=== PATIENT | female | born 1975 | race Caucasian/White ===

== ENCOUNTER 2022-12-13 21:40 | Emergency (ER) | payer OTHER, SELFPAY ==
[2022-12-13 21:54] VITALS: BP 131/85; PULSE 115; RESP 23; TEMP 36.7; O2SAT 97; BMI 40.7
--- NOTE | 2022-12-13 22:30 | ED_ITS ---
HPI - Psych General Chief Complaint: Psychiatric Symptoms Stated Complaint: SI/DIABETIC Time Seen by Provider: 12/13/22 22:30 Source: Reports patient Mode of arrival: ambulance History of Present Illness HPI Narrative: patient released from [address] [place] [address] after psychiatric admission 4 days ago. States today she argued with her mother and sisters. She went for a walk and became more depressed and wanted to walk in front of a car to get hit. She called [facility] and was brought to the ER. She denies taking any drugs other than prescribed. No use of street drugs. She would like to go back to [address] [place] [address] for additional treatment and then plans to go to a homeless long-term once released complaint: suicidal ideation Related Data Allergies Allergy/AdvReac Type Severity Reaction Status Date / Time fentanyl Allergy Unknown Verified 12/13/22 21:52 ketorolac [From Toradol] Allergy Unknown Verified 12/13/22 21:52 meperidine [From Demerol] Allergy Unknown Verified 12/13/22 21:52 morphine Allergy Unknown Verified 12/13/22 21:52 nalbuphine [From Nubain] Allergy Unknown Verified 12/13/22 21:52 Penicillins Allergy Unknown Verified 12/13/22 21:52 Review of Systems ROS Status of ROS 10 or more systems reviewed and unremarkable except as noted in history and below Exam Constitutional Vital Signs - 24 hr 12/13/22 21:54 Temperature 98.1 F Pulse Rate [Monitor] 115 H Respiratory Rate 23 Blood Pressure [Right Arm] 131/85 H Pulse Oximetry 97 Oxygen Delivery Method Room Air Common normals: no apparent distress, oriented x3, no limitations and healthy appearing HENNV Common normals: normocephalic and head/scalp atraumatic Eye Common normals: PERRL, EOMs intact bilaterally and conjunctivae normal Respiratory Common normals: normal respiratory effort, no retractions and no use of accessory muscles Cardio Common normals: no JVD, regular rate, regular rhythm, S1 normal heart sound and S2 normal heart sound GI Common normals: Normal to inspection, nondistended, normoactive bowel sounds present, soft to palpation and non-tender Extremity Common normals: normal to inspection, full ROM, normal capillary refill and no joint enlargement Neuro Common normals: oriented x3 and CN's II-XII intact bilaterally Psych Other: depressed Course Vital Signs Vital signs: Vital Signs Temperature 98.1 F 12/13/22 21:54 Pulse Rate 115 H 12/13/22 21:54 Respiratory Rate 23 12/13/22 21:54 Blood Pressure 131/85 H 12/13/22 21:54 Pulse Oximetry 97 12/13/22 21:54 Oxygen Delivery Method Room Air 12/13/22 21:54 Temperature 98.1 F 12/13/22 21:54 Pulse Rate 115 H 12/13/22 21:54 Respiratory Rate 23 12/13/22 21:54 Blood Pressure 131/85 H 12/13/22 21:54 Pulse Oximetry 97 12/13/22 21:54 Oxygen Delivery Method Room Air 12/13/22 21:54 MDM - Psych MDM Narrative Medical decision making narrative: patient presents with suicidal ideations. Wants to kill herself and planned to walk into oncoming traffic. Just released from in patient psychiatric treatment 4 days ago and would like to go back. She did talk to mental health and as been accepted as an inpatient to psych Lab Data Labs: Lab Results 12/13/22 12/13/22 12/13/22 Range/Units 19:50 22:02 23:18 WBC 7.2 (4.0-11.0) 10^3/uL RBC 4.68 (4.20-5.40) 10^6/uL Hgb 13.9 (12.0-16.0) g/dL Hct 40.5 (36.0-48.0) % MCV 86.5 (81.0-99.0) fL MCH 29.7 (26.7-34.0) pg MCHC 34.3 (29.9-35.2) g/dL RDW 12.3 (11.0-15.0) % Plt Count 240 (150-450) 10^3/uL MPV 9.2 L (9.5-13.5) fL Neut % (Auto) 55.7 (43.0-75.0) % Lymph % (Auto) 32.3 (20.5-60.0) % Petroleum % (Auto) 7.3 (1.7-12.0) % Eos % (Auto) 3.5 (0.9-7.0) % Baso % (Auto) 1.1 (0.2-2.0) % Neut # (Auto) 4.0 (1.4-6.5) 10^3/uL Lymph # (Auto) 2.3 (1.2-3.8) 10^3/uL Petroleum # (Auto) 0.5 (0.3-0.8) 10^3/uL Eos # (Auto) 0.3 (0.0-0.7) 10^3/uL Baso # (Auto) 0.1 (0.0-0.1) 10^3/uL Abs Immat Gran (auto) 0.01 (0.00-0.03) 10^3/uL Imm/Tot Granulo (auto) 0.1 (0.0-0.5) % Sodium 139 (136-145) mmol/L Potassium 3.3 L (3.5-5.1) mmol/L Chloride 101 (98-107) mmol/L Carbon Dioxide 30.3 (21.0-32.0) mmol/L Anion Gap 11.0 BUN 12.0 (7.0-18.0) mg/dL Creatinine 0.78 (0.55-1.02) mg/dL Est GFR ( Amer) >60 (>=60) Est GFR (Non-Af Amer) >60 (>=60) BUN/Creatinine Ratio 15.4 Glucose 83 (74-106) mg/dL Calcium 9.4 (8.5-10.1) mg/dL Total Bilirubin 0.4 (0.2-1.0) mg/dL AST 15 (15-37) U/L ALT 25 (14-59) U/L Alkaline Phosphatase 95 (46-116) U/L Total Protein 8.2 (6.4-8.2) g/dL Albumin 4.0 (3.4-5.0) g/dL Globulin 4.2 g/dL Albumin/Globulin Ratio 1.0 Urine HCG, Qual Negative (NEGATIVE) Urine Opiates Screen Negative (NEGATIVE) Ur Buprenorphine Scrn Negative (NEGATIVE) Ur Oxycodone Screen Negative (NEGATIVE) Urine Methadone Screen Negative (NEGATIVE) Ur Propoxyphene Screen Negative (NEGATIVE) Ur Barbiturates Screen Negative (NEGATIVE) U Tricyclic Antidepress Negative (NEGATIVE) Ur Phencyclidine Scrn Negative (NEGATIVE) Ur Amphetamines Screen Negative (NEGATIVE) U Methamphetamines Scrn Negative (NEGATIVE) U Benzodiazepines Scrn Positive A (NEGATIVE) Urine Cocaine Screen Negative (NEGATIVE) U Cannabinoids Screen Negative (NEGATIVE) Ethanol Quant <3 mg/dL POC Glucose 53 L (74-106) mg/dL Discharge Plan Discharge Chief Complaint: Psychiatric Symptoms Clinical Impression: Depression with suicidal ideation, Depression Patient Disposition: [facility] Mode of Transportation: EMS Referrals: Physician,Non-Staff, MD [Primary Care Provider] - 1 week
--- NOTE | 2022-12-13 22:35 | ECG_ITS ---
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
[2022-12-13 22:43] LABS: Basophils Absolute Auto 0.1 10^3/uL (0.0-0.1); Basophils Percent Auto 1.1 % (0.2-2.0); Eosinophils Absolute Auto 0.3 10^3/uL (0.0-0.7); Eosinophils Percent Auto 3.5 % (0.9-7.0); Hematocrit 40.5 % (36.0-48.0); Hemoglobin 13.9 g/dL (12.0-16.0); Immature Granulocytes Abs Auto 0.01 10^3/uL (0.00-0.03); Immature Granulocytes Pct Auto 0.1 % (0.0-0.5); Lymphocytes Absolute Auto 2.3 10^3/uL (1.2-3.8); Lymphocytes Percent Auto 32.3 % (20.5-60.0); Mean Corpuscular HGB Conc 34.3 g/dL (29.9-35.2); Mean Corpuscular Hemoglobin 29.7 pg (26.7-34.0); Mean Corpuscular Volume 86.5 fL (81.0-99.0); Mean Platelet Volume 9.2 fL (9.5-13.5); Monocytes Absolute Auto 0.5 10^3/uL (0.3-0.8); Monocytes Percent Auto 7.3 % (1.7-12.0); Neutrophils Percent Auto 55.7 % (43.0-75.0); Platelet Count 240 10^3/uL (150-450); Red Blood Count 4.68 10^6/uL (4.20-5.40); Red Cell Distribution Width 12.3 % (11.0-15.0); White Blood Count 7.2 10^3/uL (4.0-11.0)
[2022-12-13 22:44] LABS: HCG Qualitative Urine* NEGATIVE (NEGATIVE)
[2022-12-13 22:52] LABS: Alanine Aminotransferase 25 U/L (14-59); Alkaline Phosphatase 95 U/L (46-116); Aspartate Amino Transferase 15 U/L (15-37); BUN Creatinine Ratio 15.4; Bilirubin Total 0.4 mg/dL (0.2-1.0); Calcium 9.4 mg/dL (8.5-10.1); Carbon Dioxide 30.3 mmol/L (21.0-32.0); Chloride 101 mmol/L (98-107); Estimated GFR (African America >60 (>=60); Estimated GFR (Non-African Ame >60 (>=60); Globulin 4.2 g/dL; Glucose 83 mg/dL (74-106); Potassium 3.3 mmol/L (3.5-5.1); Sodium 139 mmol/L (136-145); Total Protein 8.2 g/dL (6.4-8.2)
[2022-12-13 22:54] LABS: Cannabinoid Screen Urine NEGATIVE (NEGATIVE); Cocaine Screen Urine NEGATIVE (NEGATIVE); Phencyclidine Screen Urine NEGATIVE (NEGATIVE)
[2022-12-13 22:54] LABS: Ethanol <3 mg/dL
[2022-12-13 22:55] LABS: Amphetamine Screen Urine NEGATIVE (NEGATIVE); Barbiturates Screen Urine NEGATIVE (NEGATIVE); Benzodiazepines Screen Urine POSITIVE (NEGATIVE); Buprenorphine Screen Urine NEGATIVE (NEGATIVE); Methadone Screen Urine NEGATIVE (NEGATIVE); Methamphetamines Screen Urine NEGATIVE (NEGATIVE); Opiate Screen Urine NEGATIVE (NEGATIVE); Oxycodone Screen Urine NEGATIVE (NEGATIVE); Tricyclic Antidepressant Urine NEGATIVE (NEGATIVE)
[2022-12-13 23:20] LABS: Glucometer 53 mg/dL (74-106)
[2022-12-13 23:51] LABS: Glucometer 95 mg/dL (74-106)
== END 2022-12-13 23:55 ==
PROVIDERS: Emergency Provider Internal Medicine
DX: R45.851 Suicidal ideations (principal); F32.A Depression, unspecified
CPT/HCPCS: 36415; 36416; 80053; 80307; 80320; 82948; 84703; 85025; 93005; 99285

== ENCOUNTER 2022-12-30 20:11 | Emergency (ER) | payer OTHER, SELFPAY ==
--- NOTE | 2022-12-30 20:24 | ECG_ITS ---
[facility] Test Date: 2022-12-30 Pat Name: GISEL PAT Department: Room: - Gender: Female Rn Placement: : 1975 Requested By: Hiro Cohn Order Number: [id number] Reading MD: KIMMY JAIME Measurements Intervals [place] Rate: 94 P: 54 [place]: 140 QRS: 8 QRSD: 88 T: 57 QT: 370 QTc: 422 Interpretive Statements 1100 Sinus rhythm 9110 normal ECG Compared to ECG 12/13/2022 21:47:20 Sinus tachycardia no longer present Left-axis deviation no longer present Electronically Signed On 12-31-2022 7:14:53 EDT by KIMMY JAIME
[2022-12-30 20:25] VITALS: BP 106/79; PULSE 96; RESP 16; TEMP 36.8; O2SAT 96
--- NOTE | 2022-12-30 20:50 | ED_ITS ---
HPI - Psych General Chief Complaint: Psychiatric Symptoms Stated Complaint: SUICIDAL Time Seen by Provider: 12/30/22 20:23 Source: Reports patient Mode of arrival: walk-in History of Present Illness HPI Narrative: patient is depressed and having suicidal thoughts. She said that she lost everything in the last two years and has been struggling with daily activities because of the depressive symptoms. She was discharged from [address] 2 weeks ago - the psychiatrist had adjusted her Cymbalta dose. She was in [facility] about a week or so before that, she told me, for the same symptoms. She is requesting re-admission to [address] [place] [address]. Related Data Home Medications Medication Instructions Recorded Confirmed celecoxib 200 mg capsule 200 mg PO Q24H 12/30/22 12/30/22 duloxetine 30 mg capsule,delayed 30 mg PO DAILY 12/30/22 12/30/22 release duloxetine 60 mg capsule,delayed 60 mg PO BEDTIME 12/30/22 12/30/22 release ergocalciferol (vitamin D2) 1,250 1,250 mcg PO .weekly 12/30/22 12/30/22 mcg (50,000 unit) capsule gabapentin 600 mg tablet 600 mg PO QID 12/30/22 12/30/22 hydroxyzine pamoate 50 mg capsule 50 mg PO Q6H PRN anxiety 12/30/22 12/30/22 insulin aspart U-100 100 unit/mL 35 unit subcut QID 12/30/22 12/30/22 (3 mL) subcutaneous pen (Novolog FlexPen U-100 Insulin aspart) insulin degludec 100 unit/mL (3 80 unit subcut Q24H 12/30/22 12/30/22 mL) subcutaneous pen (Tresiba FlexTouch U-100 insulin) loratadine 10 mg tablet 10 mg PO Q24H 12/30/22 12/30/22 metoprolol tartrate 25 mg tablet 50 mg PO Q12H 12/30/22 12/30/22 omeprazole 20 mg capsule,delayed 20 mg PO DAILY 12/30/22 12/30/22 release rosuvastatin 20 mg tablet 20 mg PO BEDTIME 12/30/22 12/30/22 tirzepatide 2.5 mg/0.5 mL 2.5 mg subcut .weekly 12/30/22 12/30/22 subcutaneous pen injector (Marilee) tizanidine 4 mg tablet 4 mg PO Q8H PRN spasms 12/30/22 12/30/22 trazodone 100 mg tablet 200 mg PO BEDTIME 12/30/22 12/30/22 Allergies Allergy/AdvReac Type Severity Reaction Status Date / Time melon Allergy Severe Anaphylaxis Verified 12/30/22 20:33 fentanyl Allergy Unknown Verified 12/30/22 20:33 ketorolac [From Toradol] Allergy Unknown Verified 12/30/22 20:33 meperidine [From Demerol] Allergy Unknown Verified 12/30/22 20:33 morphine Allergy Unknown Verified 12/30/22 20:33 nalbuphine [From Nubain] Allergy Unknown Verified 12/30/22 20:33 Penicillins Allergy Unknown Verified 12/30/22 20:33 PFSH PFSH Social History Smoking status: Never smoker Exam Narrative Exam Narrative: Nurses notes and vital signs reviewed and patient is not hypoxic. afebrile General: Well-appearing and in no apparent distress. Skin: Warm, dry, no pallor noted. Head: Normocephalic, atraumatic. Eye: Pupils are equal, round and EOMI. No scleral icterus. Ears, Nose, Mouth, and Throat: Oral mucosa is moist Cardiovascular: Regular Rate and Rhythm without murmur, gallop or rub. Respiratory: No accessory muscle use or respiratory distress. Lungs are clear to auscultation, no wheezing, rales or rhonchi Back: No midline thoracic or lumbar vertebral tenderness. No CVA tenderness Musculoskeletal: normal ROM, no calf or popliteal tenderness, no lower extremity edema/swelling GI: Abdomen is soft, non-distended. Normal bowel sounds. No tenderness to palpation. No rebound, guarding, or rigidity noted. Neurological: A&O x4. No cranial nerve dysfunction observed. No truncal ataxia. Moves all extremities. Sensation intact. Psychiatric: Cooperative and interactive. Normal mood and affect. Constitutional Vital Signs - 24 hr 12/30/22 20:25 12/30/22 22:01 12/30/22 20:58 Temperature 98.2 F Pulse Rate 91 H 93 H Pulse Rate [Monitor] 96 H Respiratory Rate 16 18 15 Blood Pressure 99/69 Blood Pressure [Left Arm] 106/79 Pulse Oximetry 96 95 Oxygen Delivery Method Room Air 12/30/22 21:59 Temperature Pulse Rate Pulse Rate [Monitor] Respiratory Rate Blood Pressure Blood Pressure [Left Arm] Pulse Oximetry 90 L Oxygen Delivery Method Course Vital Signs Vital signs: Vital Signs Temperature 98.2 F 12/30/22 20:25 Pulse Rate 96 H 12/30/22 20:25 Respiratory Rate 16 12/30/22 20:25 Blood Pressure 106/79 12/30/22 20:25 Pulse Oximetry 96 12/30/22 20:25 Oxygen Delivery Method Room Air 12/30/22 20:25 Temperature 98.2 F 12/30/22 20:25 Pulse Rate 91 H 12/30/22 22:01 Respiratory Rate 18 12/30/22 22:01 Blood Pressure 99/69 12/30/22 22:01 Pulse Oximetry 95 12/30/22 22:01 Oxygen Delivery Method Room Air 12/30/22 20:25 MDM - Psych MDM Narrative Medical decision making narrative: suicide precautions initiated. EKG obtained. Blood and urine sent for testing. unremarkable results and the patient was medically cleared for psychiatric anisa luation and admission or further treatment as necessary. Patient accepted for admission and transfer to [address], Dr Dukes accepting Lab Data Attestation: I reviewed the patient's lab results. Labs: Lab Results 12/30/22 12/30/22 Range/Units 20:47 20:54 WBC 7.2 (4.0-11.0) 10^3/uL RBC 4.77 (4.20-5.40) 10^6/uL Hgb 14.1 (12.0-16.0) g/dL Hct 42.2 (36.0-48.0) % MCV 88.5 (81.0-99.0) fL MCH 29.6 (26.7-34.0) pg MCHC 33.4 (29.9-35.2) g/dL RDW 12.3 (11.0-15.0) % Plt Count 229 (150-450) 10^3/uL MPV 8.8 L (9.5-13.5) fL Neut % (Auto) 58.3 (43.0-75.0) % Lymph % (Auto) 28.5 (20.5-60.0) % [place] % (Auto) 6.7 (1.7-12.0) % Eos % (Auto) 5.6 (0.9-7.0) % Baso % (Auto) 0.6 (0.2-2.0) % Neut # (Auto) 4.2 (1.4-6.5) 10^3/uL Lymph # (Auto) 2.0 (1.2-3.8) 10^3/uL [place] # (Auto) 0.5 (0.3-0.8) 10^3/uL Eos # (Auto) 0.4 (0.0-0.7) 10^3/uL Baso # (Auto) 0.0 (0.0-0.1) 10^3/uL Abs Immat Gran (auto) 0.02 (0.00-0.03) 10^3/uL Imm/Tot Granulo (auto) 0.3 (0.0-0.5) % Sodium 140 (136-145) mmol/L Potassium 3.7 (3.5-5.1) mmol/L Chloride 105 (98-107) mmol/L Carbon Dioxide 28.8 (21.0-32.0) mmol/L Anion Gap 9.9 BUN 20.0 H (7.0-18.0) mg/dL Creatinine 0.98 (0.55-1.02) mg/dL Est GFR ( Amer) >60 (>=60) Est GFR (Non-Af Amer) >60 (>=60) BUN/Creatinine Ratio 20.4 Glucose 117 H (74-106) mg/dL Calcium 9.0 (8.5-10.1) mg/dL Total Bilirubin 0.4 (0.2-1.0) mg/dL AST 18 (15-37) U/L ALT 25 (14-59) U/L Alkaline Phosphatase 109 (46-116) U/L Total Protein 8.0 (6.4-8.2) g/dL Albumin 4.1 (3.4-5.0) g/dL Globulin 3.9 g/dL Albumin/Globulin Ratio 1.1 Serum HCG, Qual Negative (NEGATIVE) Urine Color Dk. yellow (YELLOW) Urine Clarity Clear (CLEAR) Urine pH 5.5 (5.0-9.0) Ur Specific [place] >=1.030 A (1.005-1.025) Urine Protein 30 A (NEG/TRACE) mg/dL Urine Glucose (UA) Negative (NEGATIVE) mg/dL Urine Ketones Trace A (NEGATIVE) mg/dL Urine Occult Blood Negative (NEGATIVE) Urine Nitrite Negative (NEGATIVE) Urine Bilirubin Small A (NEGATIVE) Urine Urobilinogen 1.0 (0.2-1.0) EU/dL Ur Leukocyte Esterase Negative (NEGATIVE) Urine RBC 2-5 A (0-2) #/HPF Urine WBC 2-5 A (NONE SEEN) #/HPF Ur Squamous Epith Cells Many A (NONE/RARE) #/LPF Urine Crystals None seen (None Seen) #/HPF Urine Bacteria Trace A (NONE SEEN) #/HPF Urine Casts Seen A (NONE SEEN) #/LPF Hyaline Casts Rare Urine Mucus Small A (NONE SEEN) Ur Culture Indicated? No Salicylates <2.8 (<=19.9) mg/dL Acetaminophen <2.0 L (10.0-30.0) ug/mL Ethanol Quant <3 mg/dL ECG Data Interpretation: EKG interpretation: Emergency Department physician interpretation. Normal sinus rhythm at 94bpm. Normal axis, normal intervals and no ST segment elevation or depression. Normal EKG. Discharge Plan Discharge Chief Complaint: Psychiatric Symptoms Clinical Impression: Depression with suicidal ideation Patient Disposition: [facility] Time of Disposition Decision: 23:26 Discharge Location: [facility] Mode of Transportation: Mental Health Car Prescriptions / Home Meds: No Action celecoxib 200 mg capsule 200 mg PO Q24H duloxetine 30 mg capsule,delayed release(DR/EC) 30 mg PO DAILY duloxetine 60 mg capsule,delayed release(DR/EC) 60 mg PO BEDTIME ergocalciferol (vitamin D2) 1,250 mcg (50,000 unit) capsule 1,250 mcg PO .weekly gabapentin 600 mg tablet 600 mg PO QID hydroxyzine pamoate 50 mg capsule 50 mg PO Q6H PRN (Reason: anxiety) insulin aspart U-100 [Novolog FlexPen U-100 Insulin] 100 unit/mL (3 mL) i nsulin pen 35 unit SUBCUT QID Patient Comments: plus sliding scale insulin degludec [Tresiba FlexTouch U-100] 100 unit/mL (3 mL) insulin pen 80 unit SUBCUT Q24H loratadine 10 mg tablet 10 mg PO Q24H metoprolol tartrate 25 mg tablet 50 mg PO Q12H omeprazole 20 mg capsule,delayed release(DR/EC) 20 mg PO DAILY rosuvastatin 20 mg tablet 20 mg PO BEDTIME Mounjaro 2.5 mg/0.5 mL pen injector 2.5 mg SUBCUT .weekly tizanidine 4 mg tablet 4 mg PO Q8H PRN (Reason: spasms) trazodone 100 mg tablet 200 mg PO BEDTIME Referrals: Damian Jones MD [Primary Care Provider] - 1 week
[2022-12-30 20:58] VITALS: PULSE 93; RESP 15
[2022-12-30 21:04] LABS: Basophils Percent Auto 0.6 % (0.2-2.0); Eosinophils Absolute Auto 0.4 10^3/uL (0.0-0.7); Eosinophils Percent Auto 5.6 % (0.9-7.0); Hematocrit 42.2 % (36.0-48.0); Hemoglobin 14.1 g/dL (12.0-16.0); Immature Granulocytes Abs Auto 0.02 10^3/uL (0.00-0.03); Immature Granulocytes Pct Auto 0.3 % (0.0-0.5); Lymphocytes Percent Auto 28.5 % (20.5-60.0); Mean Corpuscular HGB Conc 33.4 g/dL (29.9-35.2); Mean Corpuscular Hemoglobin 29.6 pg (26.7-34.0); Mean Corpuscular Volume 88.5 fL (81.0-99.0); Mean Platelet Volume 8.8 fL (9.5-13.5); Monocytes Absolute Auto 0.5 10^3/uL (0.3-0.8); Monocytes Percent Auto 6.7 % (1.7-12.0); Neutrophils Absolute Auto 4.2 10^3/uL (1.4-6.5); Neutrophils Percent Auto 58.3 % (43.0-75.0); Platelet Count 229 10^3/uL (150-450); Red Blood Count 4.77 10^6/uL (4.20-5.40); Red Cell Distribution Width 12.3 % (11.0-15.0); White Blood Count 7.2 10^3/uL (4.0-11.0)
[2022-12-30 21:09] LABS: Bilirubin Urine SMALL (NEGATIVE); Blood Urine NEGATIVE (NEGATIVE); Clarity Urine CLEAR (CLEAR); Color Urine DK. YELLOW (YELLOW); Glucose Urine UA NEGATIVE (NEGATIVE); Ketones Urine TRACE mg/dL (NEGATIVE); Leukocyte Esterase Urine NEGATIVE (NEGATIVE); Nitrite Urine NEGATIVE (NEGATIVE); Protein Urine 30 mg/dL (NEG/TRACE); Specific Gravity Urine >=1.030 (1.005-1.025); pH Urine 5.5 (5.0-9.0)
[2022-12-30 21:12] LABS: Urine Microscopic Indicated YES
[2022-12-30 21:18] LABS: Bacteria Urine TRACE #/HPF (NONE SEEN); Cast Seen? SEEN #/LPF (NONE SEEN); Crystals Seen? None Seen #/HPF (None Seen); Hyaline Casts Urine RARE; Mucus Urine SMALL (NONE SEEN); Squamous Epithelial Cell Urine MANY #/LPF (NONE/RARE); Urine Culture Indicated NO
[2022-12-30 21:19] LABS: HCG Qualitative NEGATIVE (NEGATIVE)
[2022-12-30 21:25] LABS: Alanine Aminotransferase 25 U/L (14-59); Albumin Globulin Ratio 1.1; Albumin Level 4.1 g/dL (3.4-5.0); Alkaline Phosphatase 109 U/L (46-116); Anion Gap 9.9; Aspartate Amino Transferase 18 U/L (15-37); BUN Creatinine Ratio 20.4; Bilirubin Total 0.4 mg/dL (0.2-1.0); Carbon Dioxide 28.8 mmol/L (21.0-32.0); Chloride 105 mmol/L (98-107); Estimated GFR (African America >60 (>=60); Estimated GFR (Non-African Ame >60 (>=60); Globulin 3.9 g/dL; Glucose 117 mg/dL (74-106); Potassium 3.7 mmol/L (3.5-5.1); Sodium 140 mmol/L (136-145)
[2022-12-30 21:38] LABS: Salicylate <2.8 mg/dL (<=19.9)
[2022-12-30 21:42] LABS: Acetaminophen <2.0 ug/mL (10.0-30.0); Ethanol <3 mg/dL
[2022-12-30 21:59] VITALS: O2SAT 90
[2022-12-30 22:01] VITALS: BP 99/69; PULSE 91; RESP 18; O2SAT 95
--- NOTE | 2022-12-30 22:35 | PC.NURSE ---
Suicide precautions continued. sitter present. Pt pleasant and cooperative.
== END 2022-12-31 02:24 ==
PROVIDERS: Emergency Provider Emergency Medicine
DX: R45.851 Suicidal ideations (principal); F32.A Depression, unspecified; Z79.899 Other long term (current) drug therapy; Z79.4 Long term (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 of insulin
CPT/HCPCS: 36415; 80053; 80179; 80320; 80329; 81003; 81015; 84703; 85025; 93005; 99285

== ENCOUNTER 2023-01-13 16:07 | Emergency (ER) | payer OTHER, SELFPAY ==
[2023-01-13 16:15] VITALS: BP 105/89; PULSE 102; RESP 16; TEMP 36.9; O2SAT 98; BMI 42.3
--- NOTE | 2023-01-13 16:54 | ED_ITS ---
HPI - Abdominal Pain General Chief Complaint: Abdominal Pain Stated Complaint: ADBOMINAL PAIN Time Seen by Provider: 01/13/23 16:54 Source: patient Mode of arrival: walk-in Limitations: no limitations History of Present Illness HPI narrative: patient presents to the ED co r flank pain and ruq pain. pain started today.. She was not doing anything specifically when he started periods nauseated denies any vomiting. She states she had diarrhea for 3 days. She denies any hematemesis, melena, hematochezia. She states the pain is sharp and it feels like when she had a kidney stone in the past. Denies any hematuria, dysuria states the urine is more concentrated than normal. pt is a diabetic states her blood glucose has been normal.Denies any trauma. She denies any fever, chills, or cough. She denies any chest pain, shortness of breath. Related Data Home Medications Medication Instructions Recorded Confirmed celecoxib 200 mg capsule 200 mg PO Q24H 12/30/22 12/30/22 duloxetine 30 mg capsule,delayed 30 mg PO DAILY 12/30/22 12/30/22 release duloxetine 60 mg capsule,delayed 60 mg PO BEDTIME 12/30/22 12/30/22 release ergocalciferol (vitamin D2) 1,250 1,250 mcg PO .weekly 12/30/22 12/30/22 mcg (50,000 unit) capsule gabapentin 600 mg tablet 600 mg PO QID 12/30/22 12/30/22 hydroxyzine pamoate 50 mg capsule 50 mg PO Q6H PRN anxiety 12/30/22 12/30/22 insulin aspart U-100 100 unit/mL 35 unit subcut QID 12/30/22 12/30/22 (3 mL) subcutaneous pen (Novolog FlexPen U-100 Insulin aspart) insulin degludec 100 unit/mL (3 80 unit subcut Q24H 12/30/22 12/30/22 mL) subcutaneous pen (Tresiba FlexTouch U-100 insulin) loratadine 10 mg tablet 10 mg PO Q24H 12/30/22 12/30/22 metoprolol tartrate 25 mg tablet 50 mg PO Q12H 12/30/22 12/30/22 omeprazole 20 mg capsule,delayed 20 mg PO DAILY 07/04/23 07/04/23 release rosuvastatin 20 mg tablet 20 mg PO BEDTIME 12/30/22 12/30/22 tirzepatide 2.5 mg/0.5 mL 2.5 mg subcut .weekly 12/30/22 12/30/22 subcutaneous pen injector (Marilee) tizanidine 4 mg tablet 4 mg PO Q8H PRN spasms 12/30/22 12/30/22 trazodone 100 mg tablet 200 mg PO BEDTIME 12/30/22 12/30/22 Allergies Allergy/AdvReac Type Severity Reaction Status Date / Time melon Allergy Severe Anaphylaxis Verified 01/13/23 16:15 aspirin Allergy Unknown Verified 01/13/23 16:15 fentanyl Allergy Unknown Verified 01/13/23 16:15 ketorolac [From Toradol] Allergy Unknown Verified 01/13/23 16:15 meperidine [From Demerol] Allergy Unknown Verified 01/13/23 16:15 morphine Allergy Unknown Verified 01/13/23 16:15 nalbuphine [From Nubain] Allergy Unknown Verified 01/13/23 16:15 NSAIDS (Non-Steroidal Allergy Unknown Verified 01/13/23 16:15 Anti-Inflamma Penicillins Allergy Unknown Verified 01/13/23 16:15 Review of Systems ROS Status of ROS 10 or more systems reviewed and unremarkable except as noted in history and below [facility] Social History Smoking status: Never smoker Exam Narrative Exam Narrative: Nurses notes and vital signs reviewed and patient is not hypoxic. General: Nontoxic, Well-appearing and in no apparent distress. Skin: Warm, dry, no pallor noted. No Rash Head: Normocephalic, atraumatic. Neck: Supple, non-tender. Eye: Pupils are equal, round and EOMI. No scleral icterus. Ears, Nose, Mouth, and Throat: TM clear, no posterior oropharynx erythema or nasal mucosal hypertrophy, uvula is mid-line Oral mucosa is moist Cardiovascular: Regular Rate and Rhythm without murmur, gallop or rub. Respiratory: No accessory muscle use or respiratory distress. Lungs are clear to auscultation, no wheezing, rales or rhonchi Chest Wall: no tenderness Back: No midline thoracic or lumbar vertebral tenderness. + R CVA tenderness Musculoskeletal: normal ROM, no calf or popliteal tenderness, no lower extremity edema/swelling GI: obese, Abdomen is soft, non-distended. Normal bowel sounds. No masses appreciated. No tenderness to palpation. No rebound, guarding, or rigidity noted. Neurological: A&O x4. No cranial nerve dysfunction observed. No truncal ataxia. Moves all extremities. Sensation intact. Psychiatric: Cooperative and interactive. Normal mood and affect. Constitutional Vital Signs, click to edit/add: Last Vital Signs Temp 98.5 F 01/13/23 16:15 Pulse 102 H 01/13/23 16:15 Resp 16 01/13/23 16:15 BP 105/89 H 01/13/23 16:15 Pulse Ox 98 01/13/23 16:15 O2 Del Method Room Air 01/13/23 16:15 Course Vital Signs Vital signs: Vital Signs Temperature 98.5 F 01/13/23 16:15 Pulse Rate 102 H 01/13/23 16:15 Respiratory Rate 16 01/13/23 16:15 Blood Pressure 105/89 H 01/13/23 16:15 Pulse Oximetry 98 01/13/23 16:15 Oxygen Delivery Method Room Air 01/13/23 16:15 Temperature 98.5 F 01/13/23 16:15 Pulse Rate 102 H 01/13/23 16:15 Respiratory Rate 16 01/13/23 16:15 Blood Pressure 105/89 H 01/13/23 16:15 Pulse Oximetry 98 01/13/23 16:15 Oxygen Delivery Method Room Air 01/13/23 16:15 MDM - Abdominal Pain MDM Narrative Medical decision making narrative: pt had an IV established, given IV fluids, and Dilaudid for pain control. Lab studies were done and are unremarkable. The patient remained stable. She'll be signed out at the end of my shift to Dr. Servin awaiting CT scan results, reevaluation, and disposition. Differential Diagnosis Differential diagnosis: Likely abdominal pain, calculus of kidney, constipation, diverticulitis, gastroenteritis, pancreatitis and small bowel obstruction Lab Data Attestation: I reviewed the patient's lab results. Labs: Lab Results 01/13/23 01/13/23 Range/Units 17:12 17:30 WBC 9.3 (4.0-11.0) 10^3/uL RBC 5.01 (4.20-5.40) 10^6/uL Hgb 14.5 (12.0-16.0) g/dL Hct 43.2 (36.0-48.0) % MCV 86.2 (81.0-99.0) fL MCH 28.9 (26.7-34.0) pg MCHC 33.6 (29.9-35.2) g/dL RDW 12.4 (11.0-15.0) % Plt Count 240 (150-450) 10^3/uL MPV 8.4 L (9.5-13.5) fL Neut % (Auto) 65.3 (43.0-75.0) % Lymph % (Auto) 22.9 (20.5-60.0) % [place] % (Auto) 6.7 (1.7-12.0) % Eos % (Auto) 3.7 (0.9-7.0) % Baso % (Auto) 1.2 (0.2-2.0) % Neut # (Auto) 6.1 (1.4-6.5) 10^3/uL Lymph # (Auto) 2.1 (1.2-3.8) 10^3/uL [place] # (Auto) 0.6 (0.3-0.8) 10^3/uL Eos # (Auto) 0.3 (0.0-0.7) 10^3/uL Baso # (Auto) 0.1 (0.0-0.1) 10^3/uL Abs Immat Gran (auto) 0.02 (0.00-0.03) 10^3/uL Imm/Tot Granulo (auto) 0.2 (0.0-0.5) % VBG pH 7.392 (7.330-7.430) VBG pCO2 55.9 H (40.0-52.0) mmHg Sodium 143 (136-145) mmol/L Potassium 4.1 (3.5-5.1) mmol/L Chloride 104 (98-107) mmol/L Carbon Dioxide 33.0 H (21.0-32.0) mmol/L Anion Gap 10.1 BUN 12.0 (7.0-18.0) mg/dL Creatinine 1.03 H (0.55-1.02) mg/dL Est GFR ( Amer) >60 (>=60) Est GFR (Non-Af Amer) 57 L (>=60) BUN/Creatinine Ratio 11.7 Glucose 105 (74-106) mg/dL Lactate 1.0 (0.4-2.0) mmol/L Calcium 9.4 (8.5-10.1) mg/dL Total Bilirubin 0.3 (0.2-1.0) mg/dL AST 27 (15-37) U/L ALT 38 (14-59) U/L Alkaline Phosphatase 107 (46-116) U/L Total Protein 8.2 (6.4-8.2) g/dL Albumin 4.0 (3.4-5.0) g/dL Globulin 4.2 g/dL Albumin/Globulin Ratio 1.0 Lipase 116.0 (73.0-393.0) U/L Urine Color Dk. yellow (YELLOW) Urine Clarity Clear (CLEAR) Urine pH 6.5 (5.0-9.0) Ur Specific [place] 1.025 (1.005-1.025) Urine Protein 100 A (NEG/TRACE) mg/dL Urine Glucose (UA) Negative (NEGATIVE) mg/dL Urine Ketones 15 A (NEGATIVE) mg/dL Urine Occult Blood Negative (NEGATIVE) Urine Nitrite Negative (NEGATIVE) Urine Bilirubin Small A (NEGATIVE) Urine Urobilinogen 1.0 (0.2-1.0) EU/dL Ur Leukocyte Esterase Negative (NEGATIVE) Urine RBC 2-5 A (0-2) #/HPF Urine WBC 2-5 A (NONE SEEN) #/HPF Ur Squamous Epith Cells Few A (NONE/RARE) #/LPF Urine Crystals None seen (None Seen) #/HPF Urine Bacteria Trace A (NONE SEEN) #/HPF Urine Casts Seen A (NONE SEEN) #/LPF Hyaline Casts Many Urine Mucus Moderate A (NONE SEEN) Ur Culture Indicated? No Stl C. cayetanensis PCR Not detected (NOT DETECTE) Stool Rotavirus (PCR) Not detected (NOT DETECTE) Stool Adenovirus (PCR) Not detected (NOT DETECTE) Stool Astrovirus (PCR) Not detected (NOT DETECTE) Stool Campylobacter PCR Not detected (NOT DETECTE) Stool Cryptosporidium PCR Not detected (NOT DETECTE) St Sh/Enteroin Ecoli PCR Not detected (NOT DETECTE) Stl Enterotoxigenic E PCR Not detected (NOT DETECTE) Stl E. histolytica PCR Not detected (NOT DETECTE) Stool Giardia Lamblia PCR Not detected (NOT DETECTE) Stl P. shigelloides PCR Not detected (NOT DETECTE) Stool Salmonella PCR Not detected (NOT DETECTE) Stool Sapovirus (PCR) Not detected (NOT DETECTE) Stl Shiga-like Tx 1 PCR Not detected (NOT DETECTE) St Y.enterocolitica PCR Not detected (NOT DETECTE) Stl Vibrio cholerae PCR Not detected (NOT DETECTE) Stl Enteroaggr Ecoli PCR Not detected (NOT DETECTE) Stl Norovirus GI/GII PCR Not detected (NOT DETECTE) Acetone, Qual Negative (NEGATIVE) C. difficile Toxin A&B Not detected (NOT DETECTE) Vibrio Culture Not detected (NOT DETECTE) Discharge Plan Discharge Chief Complaint: Abdominal Pain Clinical Impression: Flank pain Prescriptions / Home Meds: No Action celecoxib 200 mg capsule 200 mg PO Q24H duloxetine 30 mg capsule,delayed release(DR/EC) 30 mg PO DAILY duloxetine 60 mg capsule,delayed release(DR/EC) 60 mg PO BEDTIME ergocalciferol (vitamin D2) 1,250 mcg (50,000 unit) capsule 1,250 mcg PO .weekly gabapentin 600 mg tablet 600 mg PO QID hydroxyzine pamoate 50 mg capsule 50 mg PO Q6H PRN (Reason: anxiety) insulin aspart U-100 [Novolog FlexPen U-100 Insulin] 100 unit/mL (3 mL) insulin pen 35 unit SUBCUT QID Patient Comments: plus sliding scale insulin degludec [Tresiba FlexTouch U-100] 100 unit/mL (3 mL) insulin pen 80 unit SUBCUT Q24H loratadine 10 mg tablet 10 mg PO Q24H metoprolol tartrate 25 mg tablet 50 mg PO Q12H omeprazole 20 mg capsule,delayed release(DR/EC) 20 mg PO DAILY rosuvastatin 20 mg tablet 20 mg PO BEDTIME Mounjaro 2.5 mg/0.5 mL pen injector 2.5 mg SUBCUT .weekly tizanidine 4 mg tablet 4 mg PO Q8H PRN (Reason: spasms) trazodone 100 mg tablet 200 mg PO BEDTIME Referrals: Physician,Non-Staff, MD [Primary Care Provider] - 1 week
--- NOTE | 2023-01-13 16:59 | CT_ITS ---
[place] [id number] Patient Name: GISEL PAT MRN: [id number] date: 1975 Sex: F Assigned Patient Location: ER Current Patient Location: .[facility] Accession/Order Number: [id number] Exam Date: 01/13/2023 18:37 Report Date: 01/13/2023 19:09 At the request of: JOHN HARRIS Procedure: CT abdomen pelvis wo con EXAMINATION: CT abdomen pelvis wo con, 01/13/2023 6:37 PM EDT HISTORY: abd pain COMPARISON: 11/11/2021 TECHNIQUE: CT scan of the abdomen and pelvis was performed without IV contrast. CT dose reduction technique was used, including Automated Exposure Control. FINDINGS: LOWER CHEST: Subsegmental atelectasis in the lingula and bilateral lower lobes. LIVER: Unremarkable. GALLBLADDER AND BILIARY SYSTEM: Status post cholecystectomy. There is no intra or extrahepatic biliary ductal dilatation. SPLEEN: Unremarkable. PANCREAS: Unremarkable. ADRENAL GLANDS: Unremarkable. KIDNEYS AND URETERS: There is a 3 mm nonobstructing calculus in the upper pole the right kidney. No ureteral calculus or hydronephrosis. No perinephric stranding. BLADDER: Under distended. GASTROINTESTINAL TRACT: Fluid-filled colon and small bowel loops suggesting enteritis in diarrheal state. Normal appendix. There is distention of the stomach. VASCULATURE: The abdominal aorta is normal in caliber. RETROPERITONEUM: No lymphadenopathy. PERITONEUM/MESENTERY: No abdominal ascites. No free air. PELVIS: No pelvic ascites or lymphadenopathy. BODY WALL: Postsurgical changes in the anterior abdominal wall. BONES: No acute abnormality. CT/CT abdomen pelvis wo con IMPRESSION: 1. Fluid-filled colon and small bowel loops which is suggestive of enteritis in diarrheal state. Distention of the stomach. No imaging evidence of small bowel obstruction at this time. 2. Nonobstructing 3 mm calculus in the right kidney. No hydronephrosis. Electronically authenticated by: CLARISA RAMIRES Date: 01/13/2023 19:09
[2023-01-13 17:20] LABS: Adenovirus F 40/41 NOT DETECTED (NOT DETECTE); Astrovirus NOT DETECTED (NOT DETECTE); Campylobacter NOT DETECTED (NOT DETECTE); Cryptosporidium NOT DETECTED (NOT DETECTE); Cyclospora cayetanensis NOT DETECTED (NOT DETECTE); Entamoeba histolytica NOT DETECTED (NOT DETECTE); Enteroaggregative E.coli NOT DETECTED (NOT DETECTE); Enterotoxigenic E. coli NOT DETECTED (NOT DETECTE); Giardia lamblia NOT DETECTED (NOT DETECTE); Norovirus GI/GII NOT DETECTED (NOT DETECTE); Plesiomonas shigelloides NOT DETECTED (NOT DETECTE); Rotavirus A NOT DETECTED (NOT DETECTE); Salmonella NOT DETECTED (NOT DETECTE); Sapovirus NOT DETECTED (NOT DETECTE); Shiga-like toxin-producing E.C NOT DETECTED (NOT DETECTE); Shigella/Enteroinvasive E.coli NOT DETECTED (NOT DETECTE); Vibrio NOT DETECTED (NOT DETECTE); Vibrio cholerae NOT DETECTED (NOT DETECTE); Yersinia enterocolitica NOT DETECTED (NOT DETECTE)
[2023-01-13 17:23] LABS: Bilirubin Urine SMALL (NEGATIVE); Blood Urine NEGATIVE (NEGATIVE); Clarity Urine CLEAR (CLEAR); Color Urine DK. YELLOW (YELLOW); Glucose Urine UA NEGATIVE (NEGATIVE); Ketones Urine 15 mg/dL (NEGATIVE); Leukocyte Esterase Urine NEGATIVE (NEGATIVE); Nitrite Urine NEGATIVE (NEGATIVE); Protein Urine 100 mg/dL (NEG/TRACE); Specific Gravity Urine 1.025 (1.005-1.025); pH Urine 6.5 (5.0-9.0)
[2023-01-13 17:29] LABS: Urine Microscopic Indicated YES
[2023-01-13 17:44] LABS: Bacteria Urine TRACE #/HPF (NONE SEEN); Cast Seen? SEEN #/LPF (NONE SEEN); Crystals Seen? None Seen #/HPF (None Seen); Hyaline Casts Urine MANY; Mucus Urine MODERATE (NONE SEEN); Squamous Epithelial Cell Urine FEW #/LPF (NONE/RARE); Urine Culture Indicated NO
[2023-01-13 17:48] LABS: Basophils Absolute Auto 0.1 10^3/uL (0.0-0.1); Basophils Percent Auto 1.2 % (0.2-2.0); Eosinophils Absolute Auto 0.3 10^3/uL (0.0-0.7); Eosinophils Percent Auto 3.7 % (0.9-7.0); Hematocrit 43.2 % (36.0-48.0); Hemoglobin 14.5 g/dL (12.0-16.0); Immature Granulocytes Abs Auto 0.02 10^3/uL (0.00-0.03); Immature Granulocytes Pct Auto 0.2 % (0.0-0.5); Lymphocytes Absolute Auto 2.1 10^3/uL (1.2-3.8); Lymphocytes Percent Auto 22.9 % (20.5-60.0); Mean Corpuscular HGB Conc 33.6 g/dL (29.9-35.2); Mean Corpuscular Hemoglobin 28.9 pg (26.7-34.0); Mean Corpuscular Volume 86.2 fL (81.0-99.0); Mean Platelet Volume 8.4 fL (9.5-13.5); Monocytes Absolute Auto 0.6 10^3/uL (0.3-0.8); Monocytes Percent Auto 6.7 % (1.7-12.0); Neutrophils Absolute Auto 6.1 10^3/uL (1.4-6.5); Neutrophils Percent Auto 65.3 % (43.0-75.0); Platelet Count 240 10^3/uL (150-450); Red Blood Count 5.01 10^6/uL (4.20-5.40); Red Cell Distribution Width 12.4 % (11.0-15.0); White Blood Count 9.3 10^3/uL (4.0-11.0)
[2023-01-13 17:49] LABS: PCO2 VBG 55.9 mmHg (40.0-52.0); pH VBG 7.392 (7.330-7.430)
[2023-01-13] MEDS: HYDROMORPHONE HCL 0.5 MG/0.5 ML SYRINGE 1 MG IV (17:54)
[2023-01-13] MEDS: 0.9 % SODIUM CHLORIDE 1,000 ML 999 ML IV (17:55)
[2023-01-13 17:59] LABS: Acetone NEGATIVE (NEGATIVE)
[2023-01-13 18:11] LABS: Alanine Aminotransferase 38 U/L (14-59); Alkaline Phosphatase 107 U/L (46-116); Anion Gap 10.1; Aspartate Amino Transferase 27 U/L (15-37); BUN Creatinine Ratio 11.7; Bilirubin Total 0.3 mg/dL (0.2-1.0); Calcium 9.4 mg/dL (8.5-10.1); Chloride 104 mmol/L (98-107); Estimated GFR (African America >60 (>=60); Estimated GFR (Non-African Ame 57 (>=60); Globulin 4.2 g/dL; Glucose 105 mg/dL (74-106); Potassium 4.1 mmol/L (3.5-5.1); Sodium 143 mmol/L (136-145); Total Protein 8.2 g/dL (6.4-8.2)
--- NOTE | 2023-01-13 19:30 | ED.ABDPAIN1 ---
HPI - Abdominal Pain General Chief Complaint: Abdominal Pain Stated Complaint: ADBOMINAL PAIN Time Seen by Provider: 01/13/23 16:54 Source: patient Mode of arrival: walk-in Limitations: no limitations History of Present Illness HPI narrative: This 47-year-old female with a history of type 2 diabetes was signed out to me at shift change. She presents for evaluation of diarrhea, abdominal pain and flank pain. She is medicated with IV fluids and Dilaudid prior to arrival. She has ongoing complaints of nausea. I reviewed her labs and CT scan. She has normal labs, normal white count and hemoglobin. She has normal electrolytes. Glucose is not elevated. BUN/creatinine are normal. Urine does not show any sign of infection. Noncontrast CT scan of the abdomen and pelvis shows dilated loops of bowel with no sign of obstruction. The patient has been experiencing diarrhea. She also states that she is currently Monjourno a GLP medication for weight loss and type 2 DM every time she takes his medication she gets sick with the symptoms. I discussed with her that she may need to go off of this medication is causing her this much distress. She requests something more for pain however she was noted to have episodes of desaturation on the monitor. She will be given a dose of Bentyl and Zofran. She will be discharged home with prescription for Zofran and Bentyl. She is in agreement with this plan. Related Data Home Medications Medication Instructions Recorded Confirmed celecoxib 200 mg capsule 200 mg PO Q24H 12/30/22 12/30/22 duloxetine 30 mg capsule,delayed 30 mg PO DAILY 12/30/22 12/30/22 release duloxetine 60 mg capsule,delayed 60 mg PO BEDTIME 12/30/22 12/30/22 release ergocalciferol (vitamin D2) 1,250 1,250 mcg PO .weekly 12/30/22 12/30/22 mcg (50,000 unit) capsule gabapentin 600 mg tablet 600 mg PO QID 12/30/22 12/30/22 hydroxyzine pamoate 50 mg capsule 50 mg PO Q6H PRN anxiety 12/30/22 12/30/22 insulin aspart U-100 100 unit/mL 35 unit subcut QID 12/30/22 12/30/22 (3 mL) subcutaneous pen (Novolog FlexPen U-100 Insulin aspart) insulin degludec 100 unit/mL (3 80 unit subcut Q24H 12/30/22 12/30/22 mL) subcutaneous pen (Tresiba FlexTouch U-100 insulin) loratadine 10 mg tablet 10 mg PO Q24H 12/30/22 12/30/22 metoprolol tartrate 25 mg tablet 50 mg PO Q12H 12/30/22 12/30/22 omeprazole 20 mg capsule,delayed 20 mg PO DAILY 12/30/22 12/30/22 release rosuvastatin 20 mg tablet 20 mg PO BEDTIME 12/30/22 12/30/22 tirzepatide 2.5 mg/0.5 mL 2.5 mg subcut .weekly 12/30/22 12/30/22 subcutaneous pen injector (Marilee) tizanidine 4 mg tablet 4 mg PO Q8H PRN spasms 12/30/22 12/30/22 trazodone 100 mg tablet 200 mg PO BEDTIME 12/30/22 12/30/22 Allergies Allergy/AdvReac Type Severity Reaction Status Date / Time melon Allergy Severe Anaphylaxis Verified 01/13/23 16:15 aspirin Allergy Unknown Verified 01/13/23 16:15 fentanyl Allergy Unknown Verified 01/13/23 16:15 ketorolac [From Toradol] Allergy Unknown Verified 01/13/23 16:15 meperidine [From Demerol] Allergy Unknown Verified 01/13/23 16:15 morphine Allergy Unknown Verified 01/13/23 16:15 nalbuphine [From Nubain] Allergy Unknown Verified 01/13/23 16:15 NSAIDS (Non-Steroidal Allergy Unknown Verified 01/13/23 16:15 Anti-Inflamma Penicillins Allergy Unknown Verified 01/13/23 16:15 PFSH PFSH Social History Smoking status: Never smoker Exam Constitutional Vital Signs, click to edit/add: Last Vital Signs Temp 98.5 F 01/13/23 16:15 Pulse 102 H 01/13/23 16:15 Resp 16 01/13/23 16:15 BP 105/89 H 01/13/23 16:15 Pulse Ox 98 01/13/23 16:15 O2 Del Method Room Air 01/13/23 16:15 Course Vital Signs Vital signs: Vital Signs Temperature 98.5 F 01/13/23 16:15 Pulse Rate 102 H 01/13/23 16:15 Respiratory Rate 16 01/13/23 16:15 Blood Pressure 105/89 H 01/13/23 16:15 Pulse Oximetry 98 01/13/23 16:15 Oxygen Delivery Method Room Air 01/13/23 16:15 Temperature 98.5 F 01/13/23 16:15 Pulse Rate 102 H 01/13/23 16:15 Respiratory Rate 16 01/13/23 16:15 Blood Pressure 105/89 H 01/13/23 16:15 Pulse Oximetry 98 01/13/23 16:15 Oxygen Delivery Method Room Air 01/13/23 16:15 MDM - Abdominal Pain MDM Narrative Medical decision making narrative: See my signout no in HPI Lab Data Labs: Lab Results 01/13/23 01/13/23 Range/Units 17:12 17:30 WBC 9.3 (4.0-11.0) 10^3/uL RBC 5.01 (4.20-5.40) 10^6/uL Hgb 14.5 (12.0-16.0) g/dL Hct 43.2 (36.0-48.0) % MCV 86.2 (81.0-99.0) fL MCH 28.9 (26.7-34.0) pg MCHC 33.6 (29.9-35.2) g/dL RDW 12.4 (11.0-15.0) % Plt Count 240 (150-450) 10^3/uL MPV 8.4 L (9.5-13.5) fL Neut % (Auto) 65.3 (43.0-75.0) % Lymph % (Auto) 22.9 (20.5-60.0) % [place] % (Auto) 6.7 (1.7-12.0) % Eos % (Auto) 3.7 (0.9-7.0) % Baso % (Auto) 1.2 (0.2-2.0) % Neut # (Auto) 6.1 (1.4-6.5) 10^3/uL Lymph # (Auto) 2.1 (1.2-3.8) 10^3/uL [place] # (Auto) 0.6 (0.3-0.8) 10^3/uL Eos # (Auto) 0.3 (0.0-0.7) 10^3/uL Baso # (Auto) 0.1 (0.0-0.1) 10^3/uL Abs Immat Gran (auto) 0.02 (0.00-0.03) 10^3/uL Imm/Tot Granulo (auto) 0.2 (0.0-0.5) % VBG pH 7.392 (7.330-7.430) VBG pCO2 55.9 H (40.0-52.0) mmHg Sodium 143 (136-145) mmol/L Potassium 4.1 (3.5-5.1) mmol/L Chloride 104 (98-107) mmol/L Carbon Dioxide 33.0 H (21.0-32.0) mmol/L Anion Gap 10.1 BUN 12.0 (7.0-18.0) mg/dL Creatinine 1.03 H (0.55-1.02) mg/dL Est GFR ( Amer) >60 (>=60) Est GFR (Non-Af Amer) 57 L (>=60) BUN/Creatinine Ratio 11.7 Glucose 105 (74-106) mg/dL Lactate 1.0 (0.4-2.0) mmol/L Calcium 9.4 (8.5-10.1) mg/dL Total Bilirubin 0.3 (0.2-1.0) mg/dL AST 27 (15-37) U/L ALT 38 (14-59) U/L Alkaline Phosphatase 107 (46-116) U/L Total Protein 8.2 (6.4-8.2) g/dL Albumin 4.0 (3.4-5.0) g/dL Globulin 4.2 g/dL Albumin/Globulin Ratio 1.0 Lipase 116.0 (73.0-393.0) U/L Urine Color Dk. yellow (YELLOW) Urine Clarity Clear (CLEAR) Urine pH 6.5 (5.0-9.0) Ur Specific [place] 1.025 (1.005-1.025) Urine Protein 100 A (NEG/TRACE) mg/dL Urine Glucose (UA) Negative (NEGATIVE) mg/dL Urine Ketones 15 A (NEGATIVE) mg/dL Urine Occult Blood Negative (NEGATIVE) Urine Nitrite Negative (NEGATIVE) Urine Bilirubin Small A (NEGATIVE) Urine Urobilinogen 1.0 (0.2-1.0) EU/dL Ur Leukocyte Esterase Negative (NEGATIVE) Urine RBC 2-5 A (0-2) #/HPF Urine WBC 2-5 A (NONE SEEN) #/HPF Ur Squamous Epith Cells Few A (NONE/RARE) #/LPF Urine Crystals None seen (None Seen) #/HPF Urine Bacteria Trace A (NONE SEEN) #/HPF Urine Casts Seen A (NONE SEEN) #/LPF Hyaline Casts Many Urine Mucus Moderate A (NONE SEEN) Ur Culture Indicated? No Stl C. cayetanensis PCR Not detected (NOT DETECTE) Stool Rotavirus (PCR) Not detected (NOT DETECTE) Stool Adenovirus (PCR) Not detected (NOT DETECTE) Stool Astrovirus (PCR) Not detected (NOT DETECTE) Stool Campylobacter PCR Not detected (NOT DETECTE) Stool Cryptosporidium PCR Not detected (NOT DETECTE) St Sh/Enteroin Ecoli PCR Not detected (NOT DETECTE) Stl Enterotoxigenic E PCR Not detected (NOT DETECTE) Stl E. histolytica PCR Not detected (NOT DETECTE) Stool Giardia Lamblia PCR Not detected (NOT DETECTE) Stl P. shigelloides PCR Not detected (NOT DETECTE) Stool Salmonella PCR Not detected (NOT DETECTE) Stool Sapovirus (PCR) Not detected (NOT DETECTE) Stl Shiga-like Tx 1 PCR Not detected (NOT DETECTE) St Y.enterocolitica PCR Not detected (NOT DETECTE) Stl Vibrio cholerae PCR Not detected (NOT DETECTE) Stl Enteroaggr Ecoli PCR Not detected (NOT DETECTE) Stl Norovirus GI/GII PCR Not detected (NOT DETECTE) Acetone, Qual Negative (NEGATIVE) C. difficile Toxin A&B Not detected (NOT DETECTE) Vibrio Culture Not detected (NOT DETECTE) Discharge Plan Discharge Chief Complaint: Abdominal Pain Clinical Impression: Medication side effect, Diarrhea, Abdominal pain Time of Disposition Decision: 19:33 Condition: Good Prescriptions / Home Meds: No Action celecoxib 200 mg capsule 200 mg PO Q24H duloxetine 30 mg capsule,delayed release(DR/EC) 30 mg PO DAILY duloxetine 60 mg capsule,delayed release(DR/EC) 60 mg PO BEDTIME ergocalciferol (vitamin D2) 1,250 mcg (50,000 unit) capsule 1,250 mcg PO .weekly gabapentin 600 mg tablet 600 mg PO QID hydroxyzine pamoate 50 mg capsule 50 mg PO Q6H PRN (Reason: anxiety) insulin aspart U-100 [Novolog FlexPen U-100 Insulin] 100 unit/mL (3 mL) insulin pen 35 unit SUBCUT QID Patient Comments: plus sliding scale insulin degludec [Tresiba FlexTouch U-100] 100 unit/mL (3 mL) insulin pen 80 unit SUBCUT Q24H loratadine 10 mg tablet 10 mg PO Q24H metoprolol tartrate 25 mg tablet 50 mg PO Q12H omeprazole 20 mg capsule,delayed release(DR/EC) 20 mg PO DAILY rosuvastatin 20 mg tablet 20 mg PO BEDTIME Mounjaro 2.5 mg/0.5 mL pen injector 2.5 mg SUBCUT .weekly tizanidine 4 mg tablet 4 mg PO Q8H PRN (Reason: spasms) trazodone 100 mg tablet 200 mg PO BEDTIME Instructions: Acute Diarrhea (ED), Acute Abdominal Pain (ED), Adverse Drug Reaction (ED) Stand Alone Forms: Portal Instructions Referrals: Physician,Non-Staff, MD [Primary Care Provider] - 1 week
[2023-01-13] MEDS: DICYCLOMINE HCL 10 MG CAPSULE 20 MG PO (19:49)
[2023-01-13] MEDS: ONDANSETRON PF 4 MG/2 ML VIAL IV (19:49)
[2023-01-13 20:03] VITALS: PULSE 80; RESP 16; O2SAT 97
== END 2023-01-13 20:02 | disposition home or self-care (01) ==
PROVIDERS: Emergency Medicine; Emergency Provider Emergency Medicine
DX: R10.9 Unspecified abdominal pain (principal); R19.7 Diarrhea, unspecified; T50.995A Adverse effect of other drugs, medicaments and biological substances, initial encounter; E11.9 Type 2 diabetes mellitus without complications; Z79.899 Other long term (current) drug therapy; Z79.4 Long term (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 of insulin; E66.9 Obesity, unspecified; Z68.41 Body mass index [BMI] 40.0-44.9, adult
CPT/HCPCS: 36415; 74176; 80053; 81003; 81015; 82009; 82800; 83605; 83690; 85025; 87507; 96361; 96374; 96375; 99285; J1170

== ENCOUNTER 2023-01-17 20:39 | Emergency (ER) | payer OTHER, SELFPAY ==
[2023-01-17 20:43] VITALS: BP 124/82; PULSE 110; RESP 18; TEMP 37.2; O2SAT 95; BMI 42.3
--- NOTE | 2023-01-17 21:15 | CT_ITS ---
[address] [address] Patient Name: GISEL PAT MRN: [id number] date: 1975 Sex: F Assigned Patient Location: ER Current Patient Location: ER Accession/Order Number: [id number] Exam Date: 01/17/2023 21:50 Report Date: 01/17/2023 22:22 At the request of: HOMERO DE LA ROSA Procedure: CT abdomen pelvis wo con EXAMINATION: CT abdomen pelvis wo con, 01/17/2023 9:50 PM EDT HISTORY: Flank pain COMPARISON: 01/13/2023 TECHNIQUE: CT scan of the abdomen and pelvis was performed without IV contrast. CT dose reduction technique was used, including Automated Exposure Control. FINDINGS: LOWER CHEST: Subsegmental atelectasis in the lower lobes bilaterally. Subsegmental atelectasis versus scarring in the lingula. LIVER: Unremarkable. GALLBLADDER AND BILIARY SYSTEM: Status post cholecystectomy. SPLEEN: Unremarkable. PANCREAS: Unremarkable. ADRENAL GLANDS: Unremarkable. KIDNEYS AND URETERS: There is a nonobstructing 3 mm calculus in the upper pole the right kidney. No ureteral calculus or hydronephrosis. No perinephric stranding. BLADDER: Unremarkable. GASTROINTESTINAL TRACT: No evidence of bowel obstruction or colitis. Normal appendix. Previously seen fluid-filled bowel loops have resolved. VASCULATURE: The abdominal aorta is normal in caliber. RETROPERITONEUM: No lymphadenopathy. PERITONEUM/MESENTERY: No abdominal ascites. No free air. PELVIS: No pelvic ascites or lymphadenopathy. BODY WALL: Postsurgical changes noted in the anterior abdominal wall. BONES: No acute abnormality. CT/CT abdomen pelvis wo con IMPRESSION: 1. Previously seen fluid-filled small and large bowel loops have resolved suggesting resolution of enteritis. No evidence of bowel obstruction. 2. Nonobstructing 3 mm calculus in the right kidney. No hydronephrosis. Electronically authenticated by: CLARISA RAMIRES Date: 01/17/2023 22:22
--- NOTE | 2023-01-17 21:17 | ED_ITS ---
HPI - General Adult General Chief complaint: Back Pain/Injury Stated complaint: RT FLANK PAIN Time Seen by Provider: 01/17/23 21:13 Source: patient Mode of arrival: walk-in Limitations: no limitations History of Present Illness HPI narrative: presents complaining of right flank/CVA pain. States similar pain 2 weeks ago that resolved spontaneously. Pain returned today and is associated with nausea and vomiting. No urinary symptoms. No injury Onset (ago): hour(s) Related Data Home Medications Medication Instructions Recorded Confirmed celecoxib 200 mg capsule 200 mg PO Q24H 12/30/22 12/30/22 duloxetine 30 mg capsule,delayed 30 mg PO DAILY 12/30/22 01/17/23 release duloxetine 60 mg capsule,delayed 60 mg PO BEDTIME 12/30/22 01/17/23 release ergocalciferol (vitamin D2) 1,250 1,250 mcg PO .weekly 12/30/22 01/17/23 mcg (50,000 unit) capsule gabapentin 600 mg tablet 600 mg PO QID 12/30/22 01/17/23 hydroxyzine pamoate 50 mg capsule 50 mg PO Q6H PRN anxiety 12/30/22 01/17/23 insulin aspart U-100 100 unit/mL 35 unit subcut QID 12/30/22 01/17/23 (3 mL) subcutaneous pen (Novolog FlexPen U-100 Insulin aspart) insulin degludec 100 unit/mL (3 32 unit subcut Q24H 12/30/22 01/17/23 mL) subcutaneous pen (Tresiba FlexTouch U-100 insulin) loratadine 10 mg tablet 10 mg PO Q24H 12/30/22 01/17/23 metoprolol tartrate 25 mg tablet 50 mg PO Q12H 12/30/22 01/17/23 omeprazole 20 mg capsule,delayed 20 mg PO DAILY 12/30/22 01/17/23 release rosuvastatin 20 mg tablet 20 mg PO BEDTIME 12/30/22 01/17/23 tirzepatide 2.5 mg/0.5 mL 2.5 mg subcut .weekly 12/30/22 01/17/23 subcutaneous pen injector (Marilee) tizanidine 4 mg tablet 4 mg PO Q8H PRN spasms 12/30/22 01/17/23 trazodone 100 mg tablet 200 mg PO BEDTIME 12/30/22 01/17/23 ibuprofen 800 mg tablet 800 mg PO Q8H PRN fever or pain 01/17/23 01/17/23 olanzapine 5 mg tablet 5 mg PO DAILY 01/17/23 01/17/23 promethazine 25 mg tablet 25 mg PO DAILY PRN nausea and 01/17/23 01/17/23 vomiting tramadol 50 mg tablet 50 mg PO Q6H PRN pain 01/17/23 01/17/23 Allergies Allergy/AdvReac Type Severity Reaction Status Date / Time melon Allergy Severe Anaphylaxis Verified 01/13/23 16:15 aspirin Allergy Unknown Verified 01/13/23 16:15 fentanyl Allergy Unknown Verified 01/13/23 16:15 ketorolac [From Toradol] Allergy Unknown Verified 01/13/23 16:15 meperidine [From Demerol] Allergy Unknown Verified 01/13/23 16:15 morphine Allergy Unknown Verified 01/13/23 16:15 nalbuphine [From Nubain] Allergy Unknown Verified 01/13/23 16:15 NSAIDS (Non-Steroidal Allergy Unknown Verified 01/13/23 16:15 Anti-Inflamma Penicillins Allergy Unknown Verified 01/13/23 16:15 Review of Systems ROS Status of ROS 10 or more systems reviewed and unremarkable except as noted in history and below Gastrointestinal Reports: nausea and vomiting PFSH PFSH Social History Smoking status: Never smoker Exam Constitutional Vital Signs, click to edit/add: Last Vital Signs Temp 99 F 01/17/23 20:43 Pulse 99 H 01/18/23 02:53 Resp 16 01/18/23 02:53 BP 118/80 H 01/18/23 02:53 Pulse Ox 94 L 01/18/23 02:53 O2 Del Method Room Air 01/18/23 02:53 Common normals: no apparent distress, oriented x3, healthy appearing and alert Eye Common normals: EOMs intact bilaterally, conjunctivae normal and no scleral icterus Respiratory Common normals: normal respiratory effort, no retractions, no use of accessory muscles and clear to auscultation bilaterally Cardio Common normals: regular rate, regular rhythm, S1 normal heart sound and S2 normal heart sound GI Other: right CVA tenderness Extremity Common normals: normal to inspection and full ROM Neuro Common normals: oriented x3, CN's II-XII intact bilaterally, moves all extremities, no focal motor deficits and no sensory deficits noted Psych Appearance: grossly normal Course Vital Signs Vital signs: Vital Signs Temperature 99 F 01/17/23 20:43 Pulse Rate 110 H 01/17/23 20:43 Respiratory Rate 18 01/17/23 20:43 Blood Pressure 124/82 H 01/17/23 20:43 Pulse Oximetry 95 01/17/23 20:43 Oxygen Delivery Method Room Air 01/17/23 20:43 Temperature 99 F 01/17/23 20:43 Pulse Rate 99 H 01/18/23 02:53 Respiratory Rate 16 01/18/23 02:53 Blood Pressure 118/80 H 01/18/23 02:53 Pulse Oximetry 94 L 01/18/23 02:53 Oxygen Delivery Method Room Air 01/18/23 02:53 Medical Decision Making MDM Narrative Medical decision making narrative: patient seen for right flank/CVA pain. workup without findings, including CT abd/pelvis to exam her pain. UA with with microscopic blood but no infection. patient is diabetic. Informed it is not clear why she continues to have flank pain. Seen 2-3 days ago for the same. CT at that time with findings of enteritis that are no longer present. Informed patient of the plan to have her continue her current muscle relaxant zanaflex and to follow up with her doctor for recheck. Patient at this point stated she wanted to be admitted to [address] [place] [address]. States she is depressed and does not want to go home patient did talk to mental health worker from [address] and patient has been accepted for in patient psychiatric admission Lab Data Labs: Lab Results 01/17/23 Range/Units 21:10 WBC 8.9 (4.0-11.0) 10^3/uL RBC 4.43 (4.20-5.40) 10^6/uL Hgb 13.2 (12.0-16.0) g/dL Hct 38.1 (36.0-48.0) % MCV 86.0 (81.0-99.0) fL MCH 29.8 (26.7-34.0) pg MCHC 34.6 (29.9-35.2) g/dL RDW 12.2 (11.0-15.0) % Plt Count 197 (150-450) 10^3/uL MPV 8.8 L (9.5-13.5) fL Neut % (Auto) 57.6 (43.0-75.0) % Lymph % (Auto) 26.2 (20.5-60.0) % [place] % (Auto) 6.3 (1.7-12.0) % Eos % (Auto) 8.8 H (0.9-7.0) % Baso % (Auto) 0.9 (0.2-2.0) % Neut # (Auto) 5.2 (1.4-6.5) 10^3/uL Lymph # (Auto) 2.3 (1.2-3.8) 10^3/uL [place] # (Auto) 0.6 (0.3-0.8) 10^3/uL Eos # (Auto) 0.8 H (0.0-0.7) 10^3/uL Baso # (Auto) 0.1 (0.0-0.1) 10^3/uL Abs Immat Gran (auto) 0.02 (0.00-0.03) 10^3/uL Imm/Tot Granulo (auto) 0.2 (0.0-0.5) % Sodium 139 (136-145) mmol/L Potassium 4.2 (3.5-5.1) mmol/L Chloride 102 (98-107) mmol/L Carbon Dioxide 28.7 (21.0-32.0) mmol/L Anion Gap 12.5 BUN 14.0 (7.0-18.0) mg/dL Creatinine 1.18 H (0.55-1.02) mg/dL Est GFR ( Amer) 59 L (>=60) Est GFR (Non-Af Amer) 49 L (>=60) BUN/Creatinine Ratio 11.9 Glucose 136 H (74-106) mg/dL Calcium 8.9 (8.5-10.1) mg/dL Urine Color Lt. yellow (YELLOW) Urine Clarity Clear (CLEAR) Urine pH 7.0 (5.0-9.0) Ur Specific [place] 1.010 (1.005-1.025) Urine Protein Negative (NEG/TRACE) mg/dL Urine Glucose (UA) Negative (NEGATIVE) mg/dL Urine Ketones Negative (NEGATIVE) mg/dL Urine Occult Blood Large A (NEGATIVE) Urine Nitrite Negative (NEGATIVE) Urine Bilirubin Negative (NEGATIVE) Urine Urobilinogen 1.0 (0.2-1.0) EU/dL Ur Leukocyte Esterase Small A (NEGATIVE) Urine RBC 20-50 A (0-2) #/HPF Urine WBC 0-2 A (NONE SEEN) #/HPF Ur Squamous Epith Cells Rare (NONE/RARE) #/LPF Urine Crystals None seen (None Seen) #/HPF Urine Bacteria None seen (NONE SEEN) #/HPF Urine Casts None seen (NONE SEEN) #/LPF Urine Mucus Trace A (NONE SEEN) Ur Culture Indicated? No Salicylates <2.8 (<=19.9) mg/dL Urine Opiates Screen Negative (NEGATIVE) Ur Buprenorphine Scrn Negative (NEGATIVE) Ur Oxycodone Screen Negative (NEGATIVE) Urine Methadone Screen Negative (NEGATIVE) Ur Propoxyphene Screen Negative (NEGATIVE) Acetaminophen <2.0 L (10.0-30.0) ug/mL Ur Barbiturates Screen Negative (NEGATIVE) U Tricyclic Antidepress Negative (NEGATIVE) Ur Phencyclidine Scrn Negative (NEGATIVE) Ur Amphetamines Screen Negative (NEGATIVE) U Methamphetamines Scrn Negative (NEGATIVE) U Benzodiazepines Scrn Negative (NEGATIVE) Urine Cocaine Screen Negative (NEGATIVE) U Cannabinoids Screen Negative (NEGATIVE) Ethanol Quant <3 mg/dL Discharge Plan Discharge Chief Complaint: Back Pain/Injury Clinical Impression: Acute right flank pain, Depression with suicidal ideation Patient Disposition: [facility] Time of Disposition Decision: 01:00 Discharge Location: [facility] Discharge location: [address] Condition: Good Mode of Transportation: Mental Health Car Discharge Date/Time: 01/18/23 03:00
[2023-01-17 21:22] LABS: Basophils Absolute Auto 0.1 10^3/uL (0.0-0.1); Basophils Percent Auto 0.9 % (0.2-2.0); Eosinophils Absolute Auto 0.8 10^3/uL (0.0-0.7); Eosinophils Percent Auto 8.8 % (0.9-7.0); Hematocrit 38.1 % (36.0-48.0); Hemoglobin 13.2 g/dL (12.0-16.0); Immature Granulocytes Abs Auto 0.02 10^3/uL (0.00-0.03); Immature Granulocytes Pct Auto 0.2 % (0.0-0.5); Lymphocytes Absolute Auto 2.3 10^3/uL (1.2-3.8); Lymphocytes Percent Auto 26.2 % (20.5-60.0); Mean Corpuscular HGB Conc 34.6 g/dL (29.9-35.2); Mean Corpuscular Hemoglobin 29.8 pg (26.7-34.0); Mean Platelet Volume 8.8 fL (9.5-13.5); Monocytes Absolute Auto 0.6 10^3/uL (0.3-0.8); Monocytes Percent Auto 6.3 % (1.7-12.0); Neutrophils Absolute Auto 5.2 10^3/uL (1.4-6.5); Neutrophils Percent Auto 57.6 % (43.0-75.0); Platelet Count 197 10^3/uL (150-450); Red Blood Count 4.43 10^6/uL (4.20-5.40); Red Cell Distribution Width 12.2 % (11.0-15.0); White Blood Count 8.9 10^3/uL (4.0-11.0)
[2023-01-17 21:24] LABS: Bilirubin Urine NEGATIVE (NEGATIVE); Blood Urine LARGE (NEGATIVE); Clarity Urine CLEAR (CLEAR); Color Urine LT. YELLOW (YELLOW); Glucose Urine UA NEGATIVE (NEGATIVE); Ketones Urine NEGATIVE (NEGATIVE); Leukocyte Esterase Urine SMALL (NEGATIVE); Nitrite Urine NEGATIVE (NEGATIVE); Protein Urine NEGATIVE (NEG/TRACE); Urine Microscopic Indicated YES
[2023-01-17 21:31] LABS: Bacteria Urine NONE SEEN #/HPF (NONE SEEN); Cast Seen? NONE SEEN #/LPF (NONE SEEN); Crystals Seen? None Seen #/HPF (None Seen); Mucus Urine TRACE (NONE SEEN); RBC Urine 20-50 #/HPF (0-2); Squamous Epithelial Cell Urine RARE #/LPF (NONE/RARE); Urine Culture Indicated NO; WBC Urine 0-2 #/HPF (NONE SEEN)
[2023-01-17] MEDS: 0.9 % SODIUM CHLORIDE 1,000 ML 999 ML IV (21:44)
[2023-01-17] MEDS: HYDROMORPHONE HCL 0.5 MG/0.5 ML SYRINGE IV (21:44)
[2023-01-17] MEDS: ONDANSETRON PF 4 MG/2 ML VIAL IV (21:45)
[2023-01-17 22:30] VITALS: BP 120/88; PULSE 113; RESP 20; O2SAT 94
[2023-01-17] MEDS: PROMETHAZINE HCL 25 MG/ML VIAL 12.5 MG IV (22:50)
[2023-01-17 23:23] LABS: Anion Gap 12.5; BUN Creatinine Ratio 11.9; Calcium 8.9 mg/dL (8.5-10.1); Carbon Dioxide 28.7 mmol/L (21.0-32.0); Chloride 102 mmol/L (98-107); Estimated GFR (African America 59 (>=60); Estimated GFR (Non-African Ame 49 (>=60); Glucose 136 mg/dL (74-106); Potassium 4.2 mmol/L (3.5-5.1); Sodium 139 mmol/L (136-145)
--- NOTE | 2023-01-17 23:54 | ECG_ITS ---
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
--- NOTE | 2023-01-18 00:28 | PC.NURSE ---
Talked with hotline.
[2023-01-18 00:48] LABS: Acetaminophen <2.0 ug/mL (10.0-30.0); Ethanol <3 mg/dL; Salicylate <2.8 mg/dL (<=19.9)
[2023-01-18 00:54] LABS: Amphetamine Screen Urine NEGATIVE (NEGATIVE); Barbiturates Screen Urine NEGATIVE (NEGATIVE); Benzodiazepines Screen Urine NEGATIVE (NEGATIVE); Buprenorphine Screen Urine NEGATIVE (NEGATIVE); Cannabinoid Screen Urine NEGATIVE (NEGATIVE); Cocaine Screen Urine NEGATIVE (NEGATIVE); Methadone Screen Urine NEGATIVE (NEGATIVE); Methamphetamines Screen Urine NEGATIVE (NEGATIVE); Opiate Screen Urine NEGATIVE (NEGATIVE); Oxycodone Screen Urine NEGATIVE (NEGATIVE); Phencyclidine Screen Urine NEGATIVE (NEGATIVE); Tricyclic Antidepressant Urine NEGATIVE (NEGATIVE)
[2023-01-18 01:43] VITALS: BP 120/84; PULSE 99; RESP 16; O2SAT 97
[2023-01-18 02:53] VITALS: BP 118/80; PULSE 99; RESP 16; O2SAT 94
--- NOTE | 2023-01-18 02:58 | PC.NURSE ---
Report called to [address] [phone]
== END 2023-01-18 03:00 ==
PROVIDERS: Emergency Provider Internal Medicine
DX: R10.9 Unspecified abdominal pain (principal); R45.851 Suicidal ideations; F32.A Depression, unspecified; Z79.899 Other long term (current) drug therapy; Z79.4 Long term (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 of insulin; E11.9 Type 2 diabetes mellitus without complications
CPT/HCPCS: 36415; 74176; 80048; 80179; 80307; 80320; 80329; 81003; 81015; 85025; 93005; 96374; 96375; 99285; J1170

== ENCOUNTER 2023-02-19 21:41 | Emergency (ER) | payer OTHER, SELFPAY ==
[2023-02-19 21:47] VITALS: BP 151/106; PULSE 115; RESP 16; TEMP 36.7; O2SAT 97; BMI 42.3
[2023-02-19 21:48] VITALS: BP 151/106; O2SAT 94
--- NOTE | 2023-02-19 22:01 | CT_ITS ---
The [address] [address] Patient Name: GISEL PAT MRN: [id number] date: 1975 Sex: F Assigned Patient Location: ER Current Patient Location: ER Accession/Order Number: [id number] Exam Date: 02/19/2023 23:03 Report Date: 02/19/2023 23:58 At the request of: NOVA MARKER Procedure: CT abdomen pelvis wo con EXAM: CT abdomen pelvis wo con HISTORY: kidney stone . Right flank pain. Epigastric pain and vomiting for one day. COMPARISON: CT abdomen pelvis, 01/17/2023. TECHNIQUE: Nonenhanced CT imaging the abdomen and pelvis was performed with sagittal and coronal reconstructions. FINDINGS: CT ABDOMEN: There is bibasilar linear atelectasis and/or fibrotic scarring. Mild bibasilar patchy ground-glass opacities favor hypoventilation over mild pneumonitis. Cardiac size is normal. There is no pericardial effusion. Cholecystectomy clips are unchanged. There is no biliary ductal dilatation. The exam is limited by the lack of IV contrast. Solid organ lesions or acute abnormalities could be missed. Allowing for this, the liver, pancreas, spleen, and adrenal glands are grossly unremarkable. There is a 2 mm stone in the posterior upper pole of the right kidney. There is a 2 mm stone in the posterior lower pole of the left kidney. No hydronephrosis or ureterolithiasis is seen on either side. Lobular renal cortical contours are likely developmental and appear unchanged. The kidneys are otherwise unremarkable. Moderate gastric distention. The small bowel is unremarkable. CT PELVIS: The appendix, pelvic small bowel loops and decompressed urinary bladder are unremarkable. Prior hysterectomy is noted. There is mild colonic diverticulosis. No inflammatory fat stranding, free fluid, loculated fluid or free air is seen in the abdomen or pelvis. CT/CT abdomen pelvis wo con IMPRESSION: 1. Single punctate nonobstructing stone in each kidney. No hydronephrosis or ureterolithiasis on either side. No specific cause of right flank pain is identified. 2. Moderate gastric distention, nonspecific. This could reflect a recent meal, gastroparesis, or partial gastric outlet obstruction. No mass or acute inflammation is seen. 3. Prior cholecystectomy and hysterectomy. Electronically authenticated by: HARESH PADILLA Date: 02/19/2023 23:58
--- NOTE | 2023-02-19 22:15 | ED_ITS ---
HPI - Abdominal Pain General Chief Complaint: Abdominal Pain Stated Complaint: STOMACH PAIN Time Seen by Provider: 02/19/23 21:57 History of Present Illness HPI narrative: This 47 year female with a history of type 2 diabetes, hypertension and depression presents for evaluation of acute onset of sharp, stabbing, epigastric and right upper quadrant abdominal pain that radiates into her back. The symptoms started after having meat loaff, baked potato and Moses collar for dinner. She is status post cholecystectomy. She does have a history of kidney stones. She states that she also has GERD. She vomited several times and had dry heaves and states that her vomit was mostly bile. She denies any chest pain or shortness of breath. She has not had any fevers. She has not had any diarrhea. She is on one of the GLP medications for type 2 diabetes, Monjaro, and states that she has had an upset stomach since she started taking it but her hemoglobin A1c has gone from 11-6.5 she has lost approximately 40 pounds. Related Data Home Medications Medication Instructions Recorded Confirmed celecoxib 200 mg capsule 200 mg PO Q24H 12/30/22 02/19/23 ergocalciferol (vitamin D2) 1,250 1,250 mcg PO .weekly 12/30/22 02/19/23 mcg (50,000 unit) capsule gabapentin 600 mg tablet 600 mg PO QID 12/30/22 02/19/23 hydroxyzine pamoate 50 mg capsule 50 mg PO Q6H PRN anxiety 12/30/22 02/19/23 insulin aspart U-100 100 unit/mL 35 unit subcut QID 12/30/22 02/19/23 (3 mL) subcutaneous pen (Novolog FlexPen U-100 Insulin aspart) insulin degludec 100 unit/mL (3 32 unit subcut Q24H 12/30/22 02/19/23 mL) subcutaneous pen (Tresiba FlexTouch U-100 insulin) loratadine 10 mg tablet 10 mg PO Q24H 12/30/22 02/19/23 metoprolol tartrate 25 mg tablet 50 mg PO Q12H 12/30/22 02/19/23 omeprazole 20 mg capsule,delayed 20 mg PO DAILY 12/30/22 02/19/23 release rosuvastatin 20 mg tablet 20 mg PO BEDTIME 12/30/22 02/19/23 tirzepatide 2.5 mg/0.5 mL 2.5 mg subcut .weekly 12/30/22 02/19/23 subcutaneous pen injector (Marilee) tizanidine 4 mg tablet 4 mg PO Q8H PRN spasms 12/30/22 02/19/23 trazodone 100 mg tablet 200 mg PO BEDTIME 12/30/22 02/19/23 ibuprofen 800 mg tablet 800 mg PO Q8H PRN fever or pain 01/17/23 02/19/23 olanzapine 5 mg tablet 5 mg PO DAILY 01/17/23 02/19/23 promethazine 25 mg tablet 25 mg PO DAILY PRN nausea and 01/17/23 02/19/23 vomiting tramadol 50 mg tablet 50 mg PO Q6H PRN pain 01/17/23 02/19/23 venlafaxine 150 mg 150 mg PO DAILY 02/19/23 02/19/23 capsule,extended release 24 hr Allergies Allergy/AdvReac Type Severity Reaction Status Date / Time melon Allergy Severe Anaphylaxis Verified 02/19/23 21:51 aspirin Allergy Unknown Verified 02/19/23 21:51 fentanyl Allergy Unknown Verified 02/19/23 21:51 ketorolac [From Toradol] Allergy Unknown Verified 02/19/23 21:51 meperidine [From Demerol] Allergy Unknown Verified 02/19/23 21:51 morphine Allergy Unknown Verified 02/19/23 21:51 nalbuphine [From Nubain] Allergy Unknown Verified 02/19/23 21:51 NSAIDS (Non-Steroidal Allergy Unknown Verified 02/19/23 21:51 Anti-Inflamma Penicillins Allergy Unknown Verified 02/19/23 21:51 Review of Systems ROS Status of ROS 10 or more systems reviewed and unremarkable except as noted in history and below PFSH PFS Social History Smoking status: Never smoker Exam Narrative Exam Narrative: Nurses note and vital signs reviewed, She is afebrile, mildly tachycardic with a pulse of 1:15 and blood pressure is elevated at 151/106, she is not hypoxic with pulse ox 98 percent on room air General: Nontoxic, obese female resting comfortably in the stretcher, no respiratory distress, no active vomiting Skin: Warm, dry, no pallor noted. There is no rash noted. Head: Normocephalic, atraumatic Eye: Normal conjunctiva, no drainage, EOMI. PERRL Ears, Nose, Mouth, and Throat: oral mucosa is moist. Cardiovascular: Regular Rate and Rhythm, No murmurs rubs or gallops appreciated Respiratory: Patient is in no distress, no accessory muscle use, lungs are clear to auscultation, no wheezing, rales or rhonchi Back: non-tender, no CVA tenderness bilaterally to percussion. GI: Obese, soft, epigastric abdominal tenderness, the remainder of the abdominal exam is benign with no rebound guarding or rigidity Musculoskeletal: The patient has no evidence of calf tenderness, no pitting edema, symmetrical pulses noted bilaterally Neurological: A&O x4, normal speech Psychiatric: Cooperative Constitutional Vital Signs, click to edit/add: Last Vital Signs Temp 98.0 F 02/19/23 21:47 Pulse 115 H 02/19/23 21:47 Resp 16 02/19/23 21:47 BP 102/66 02/19/23 22:56 Pulse Ox 94 L 02/19/23 21:48 O2 Del Method Room Air 02/19/23 21:47 Course Vital Signs Vital signs: Vital Signs Temperature 98.0 F 02/19/23 21:47 Pulse Rate 115 H 02/19/23 21:47 Respiratory Rate 16 02/19/23 21:47 Blood Pressure 151/106 H 02/19/23 21:47 Pulse Oximetry 97 02/19/23 21:47 Oxygen Delivery Method Room Air 02/19/23 21:47 Temperature 98.0 F 02/19/23 21:47 Pulse Rate 115 H 02/19/23 21:47 Respiratory Rate 16 02/19/23 21:47 Blood Pressure 102/66 02/19/23 22:56 Pulse Oximetry 94 L 02/19/23 21:48 Oxygen Delivery Method Room Air 02/19/23 21:47 MDM - Abdominal Pain MDM Narrative Medical decision making narrative: 47-year-old female with a history of diabetes, hypertension, depression, morbid obesity and kidney stones presents for evaluation of acute onset of epigastric and right upper quadrant abdominal pain that radiates into her back. She has no chest pain or shortness of breath. She had nausea with dry heaves and bilious vomitus prior to arrival. She is on a GLP medication for diabetes/weight loss that does decreased gastric emptying. She states she last ate meatloaf, baked potatoes and moses cobbler for dinner. This was prior to her development of symptoms. On arrival she is not actively vomiting and well appearing. An IV was placed and she was medicated with 1 mg of IV Dilaudid and Zofran. He stated that the Zofran did not help her nausea and requested Phenergan. Routine labs, urinalysis and CT scan of the abdomen and pelvis was ordered. She has a normal white count and hemoglobin. She has normal electrolytes with the exception of a glucose of 166. Urine is negative for infection but positive for greater than 100 red blood cells per high-power field which is concerning for a kidney stone considering that she has had a hysterectomy. CT scan abdomen and pelvis shows one small punctate stone in the right kidney and 1 small punctatee stone in the left kidney with a distended stomach and clips in the gallbladder fossa. The remainder of the CT scan is normal. Patient was reevaluated and the results of the scan were discussed with her and she was given a copy of it her records. She requested something else for pain. The patient has multiple ALLERGIES including NSAIDs although it states in her MAR that she is on ibuprofen. In light of this she will be given one dose of oral Percocet prior to discharge. I explained to her that I will not give her additional doses of Dilaudid without having a diagnosis to support this medication. She will be discharged home with a prescription for Protonix. I reviewed her OARRS report and it shows 51 prescriptions from multiple providers from multiple local hospitals in the past year with an overdose risk score of 640 Lab Data Labs: Lab Results 02/19/23 Range/Units 22:00 WBC 8.2 (4.0-11.0) 10^3/uL RBC 4.75 (4.20-5.40) 10^6/uL Hgb 13.6 (12.0-16.0) g/dL Hct 42.2 (36.0-48.0) % MCV 88.8 (81.0-99.0) fL MCH 28.6 (26.7-34.0) pg MCHC 32.2 (29.9-35.2) g/dL RDW 12.5 (11.0-15.0) % Plt Count 225 (150-450) 10^3/uL MPV 8.9 L (9.5-13.5) fL Neut % (Auto) 60.9 (43.0-75.0) % Lymph % (Auto) 26.9 (20.5-60.0) % [place] % (Auto) 6.3 (1.7-12.0) % Eos % (Auto) 5.1 (0.9-7.0) % Baso % (Auto) 0.7 (0.2-2.0) % Neut # (Auto) 5.0 (1.4-6.5) 10^3/uL Lymph # (Auto) 2.2 (1.2-3.8) 10^3/uL [place] # (Auto) 0.5 (0.3-0.8) 10^3/uL Eos # (Auto) 0.4 (0.0-0.7) 10^3/uL Baso # (Auto) 0.1 (0.0-0.1) 10^3/uL Abs Immat Gran (auto) 0.01 (0.00-0.03) 10^3/uL Imm/Tot Granulo (auto) 0.1 (0.0-0.5) % Sodium 139 (136-145) mmol/L Potassium 3.6 (3.5-5.1) mmol/L Chloride 103 (98-107) mmol/L Carbon Dioxide 27.3 (21.0-32.0) mmol/L Anion Gap 12.3 BUN 17.0 (7.0-18.0) mg/dL Creatinine 0.82 (0.55-1.02) mg/dL Est GFR ( Amer) >60 (>=60) Est GFR (Non-Af Amer) >60 (>=60) BUN/Creatinine Ratio 20.7 Glucose 166 H (74-106) mg/dL Calcium 9.0 (8.5-10.1) mg/dL Total Bilirubin 0.2 (0.2-1.0) mg/dL Direct Bilirubin 0.1 (0.0-0.2) mg/dL AST 11 L (15-37) U/L ALT 27 (14-59) U/L Alkaline Phosphatase 88 (46-116) U/L Total Protein 8.1 (6.4-8.2) g/dL Albumin 3.8 (3.4-5.0) g/dL Globulin 4.3 g/dL Albumin/Globulin Ratio 0.9 Lipase 90.0 (73.0-393.0) U/L Urine Color Yellow (YELLOW) Urine Clarity Sl cloudy (CLEAR) Urine pH 6.0 (5.0-9.0) Ur Specific [place] >=1.030 A (1.005-1.025) Urine Protein Negative (NEG/TRACE) mg/dL Urine Glucose (UA) 250 A (NEGATIVE) mg/dL Urine Ketones Negative (NEGATIVE) mg/dL Urine Occult Blood Large A (NEGATIVE) Urine Nitrite Negative (NEGATIVE) Urine Bilirubin Negative (NEGATIVE) Urine Urobilinogen 1.0 (0.2-1.0) EU/dL Ur Leukocyte Esterase Negative (NEGATIVE) Urine RBC >100 A (0-2) #/HPF Urine WBC 2-5 A (NONE SEEN) #/HPF Ur Squamous Epith Cells Few A (NONE/RARE) #/LPF Urine Crystals None seen (None Seen) #/HPF Urine Bacteria Trace A (NONE SEEN) #/HPF Urine Casts None seen (NONE SEEN) #/LPF Urine Mucus None seen (NONE SEEN) Ur Culture Indicated? Yes Discharge Plan Discharge Chief Complaint: Abdominal Pain Clinical Impression: Epigastric abdominal pain, Nausea & vomiting Prescriptions / Home Meds: No Action ibuprofen 800 mg tablet 800 mg PO Q8H PRN (Reason: fever or pain) olanzapine 5 mg tablet 5 mg PO DAILY Rx Instructions: HS promethazine 25 mg tablet 25 mg PO DAILY PRN (Reason: nausea and vomiting) tramadol 50 mg tablet 50 mg PO Q6H PRN (Reason: pain) celecoxib 200 mg capsule 200 mg PO Q24H ergocalciferol (vitamin D2) 1,250 mcg (50,000 unit) capsule 1,250 mcg PO .weekly gabapentin 600 mg tablet 600 mg PO QID hydroxyzine pamoate 50 mg capsule 50 mg PO Q6H PRN (Reason: anxiety) insulin aspart U-100 [Novolog FlexPen U-100 Insulin] 100 unit/mL (3 mL) insulin pen 35 unit SUBCUT QID Patient Comments: plus sliding scale insulin degludec [Tresiba FlexTouch U-100] 100 unit/mL (3 mL) insulin pen 32 unit SUBCUT Q24H loratadine 10 mg tablet 10 mg PO Q24H metoprolol tartrate 25 mg tablet 50 mg PO Q12H omeprazole 20 mg capsule,delayed release(DR/EC) 20 mg PO DAILY rosuvastatin 20 mg tablet 20 mg PO BEDTIME Mounjaro 2.5 mg/0.5 mL pen injector 2.5 mg SUBCUT .weekly tizanidine 4 mg tablet 4 mg PO Q8H PRN (Reason: spasms) trazodone 100 mg tablet 200 mg PO BEDTIME venlafaxine 150 mg capsule,extended release 24hr 150 mg PO DAILY Instructions: GERD (Gastroesophageal Reflux Disease) (ED), Acute Nausea and Vomiting (DC), Epigastric Pain (ED) Referrals: Physician,Non-Staff, MD [Primary Care Provider] - 1 week
[2023-02-19 22:34] LABS: Basophils Absolute Auto 0.1 10^3/uL (0.0-0.1); Basophils Percent Auto 0.7 % (0.2-2.0); Bilirubin Urine NEGATIVE (NEGATIVE); Blood Urine LARGE (NEGATIVE); Clarity Urine SL CLOUDY (CLEAR); Color Urine YELLOW (YELLOW); Eosinophils Absolute Auto 0.4 10^3/uL (0.0-0.7); Eosinophils Percent Auto 5.1 % (0.9-7.0); Glucose Urine UA 250 mg/dL (NEGATIVE); Hematocrit 42.2 % (36.0-48.0); Hemoglobin 13.6 g/dL (12.0-16.0); Immature Granulocytes Abs Auto 0.01 10^3/uL (0.00-0.03); Immature Granulocytes Pct Auto 0.1 % (0.0-0.5); Ketones Urine NEGATIVE (NEGATIVE); Leukocyte Esterase Urine NEGATIVE (NEGATIVE); Lymphocytes Absolute Auto 2.2 10^3/uL (1.2-3.8); Lymphocytes Percent Auto 26.9 % (20.5-60.0); Mean Corpuscular HGB Conc 32.2 g/dL (29.9-35.2); Mean Corpuscular Hemoglobin 28.6 pg (26.7-34.0); Mean Corpuscular Volume 88.8 fL (81.0-99.0); Mean Platelet Volume 8.9 fL (9.5-13.5); Monocytes Absolute Auto 0.5 10^3/uL (0.3-0.8); Monocytes Percent Auto 6.3 % (1.7-12.0); Neutrophils Percent Auto 60.9 % (43.0-75.0); Nitrite Urine NEGATIVE (NEGATIVE); Platelet Count 225 10^3/uL (150-450); Protein Urine NEGATIVE (NEG/TRACE); Red Blood Count 4.75 10^6/uL (4.20-5.40); Red Cell Distribution Width 12.5 % (11.0-15.0); Specific Gravity Urine >=1.030 (1.005-1.025); White Blood Count 8.2 10^3/uL (4.0-11.0)
[2023-02-19] MEDS: 0.9 % SODIUM CHLORIDE 1,000 ML 100 ML IV (22:34)
[2023-02-19] MEDS: HYDROMORPHONE HCL 0.5 MG/0.5 ML SYRINGE 1 MG IV (22:35)
[2023-02-19] MEDS: PANTOPRAZOLE SODIUM 40 MG VIAL IV (22:35)
[2023-02-19] MEDS: ONDANSETRON PF 4 MG/2 ML VIAL IV (22:35)
[2023-02-19 22:55] LABS: RBC Urine >100 #/HPF (0-2)
[2023-02-19 22:56] VITALS: BP 102/66
[2023-02-19 22:56] LABS: Bacteria Urine TRACE #/HPF (NONE SEEN); Cast Seen? NONE SEEN #/LPF (NONE SEEN); Crystals Seen? None Seen #/HPF (None Seen); Mucus Urine NONE SEEN (NONE SEEN); Squamous Epithelial Cell Urine FEW #/LPF (NONE/RARE)
[2023-02-19 22:57] LABS: Urine Culture Indicated YES
[2023-02-19 23:01] LABS: Alanine Aminotransferase 27 U/L (14-59); Albumin Globulin Ratio 0.9; Albumin Level 3.8 g/dL (3.4-5.0); Alkaline Phosphatase 88 U/L (46-116); Anion Gap 12.3; Aspartate Amino Transferase 11 U/L (15-37); BUN Creatinine Ratio 20.7; Bilirubin Direct 0.1 mg/dL (0.0-0.2); Bilirubin Total 0.2 mg/dL (0.2-1.0); Carbon Dioxide 27.3 mmol/L (21.0-32.0); Chloride 103 mmol/L (98-107); Estimated GFR (African America >60 (>=60); Estimated GFR (Non-African Ame >60 (>=60); Globulin 4.3 g/dL; Glucose 166 mg/dL (74-106); Potassium 3.6 mmol/L (3.5-5.1); Sodium 139 mmol/L (136-145); Total Protein 8.1 g/dL (6.4-8.2)
[2023-02-19] MEDS: PROMETHAZINE HCL 25 MG/ML VIAL 12.5 MG IV (23:48)
[2023-02-20 00:02] VITALS: O2SAT 95
[2023-02-20 00:03] VITALS: O2SAT 89
[2023-02-20 00:04] VITALS: BP 113/46
[2023-02-20 00:16] VITALS: BP 97/67
[2023-02-20 00:31] VITALS: BP 92/69
== END 2023-02-20 00:49 | disposition home or self-care (01) ==
PROVIDERS: Emergency Provider Emergency Medicine
DX: R10.13 Epigastric pain (principal); R11.2 Nausea with vomiting, unspecified; E11.9 Type 2 diabetes mellitus without complications; I10 Essential (primary) hypertension; F32.A Depression, unspecified; K21.9 Gastro-esophageal reflux disease without esophagitis; Z90.49 Acquired absence of other specified parts of digestive tract; Z79.4 Long term (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 of insulin; Z79.899 Other long term (current) drug therapy; E66.01 Morbid (severe) obesity due to excess calories; Z87.442 Personal history of urinary calculi; Z90.710 Acquired absence of both cervix and uterus; Z68.41 Body mass index [BMI] 40.0-44.9, adult
CPT/HCPCS: 36415; 74176; 80053; 80076; 81001; 83690; 85025; 87086; 96374; 96375; 99284; J1170

== ENCOUNTER 2023-02-23 18:52 | Emergency (ER) | payer OTHER, SELFPAY ==
[2023-02-23] VITALS (12 sets, daily range): BP systolic 91–134; BP diastolic 69–90; PULSE 108; RESP 18; TEMP 36.4; O2SAT 86–98; BMI 40.7
--- NOTE | 2023-02-23 19:52 | ED_ITS ---
HPI - Abdominal Pain General Chief Complaint: Abdominal Pain Stated Complaint: FLANK PAIN Time Seen by Provider: 02/23/23 19:08 Source: patient Mode of arrival: walk-in Limitations: no limitations History of Present Illness HPI narrative: This 47-year-old female presents for evaluation of left flank pain with nausea and vomiting and dysuria with dark cloudy urine. The patient was seen here last Thursday for pain on the right side that was epigastric in nature and radiated into her right flank. Routine labs and CT scan were ordered. She was noted to have 2 small kidney stones in each kidney. She states that she was feeling better from that pain and she was at school today and started feeling nauseated. She states she went home and vomited 4 times. She then started having left flank pain. She denies the possibility of because she has had a hysterectomy. She denies any fever. She has dry heaves at this time. She states that her mother drove her to the hospital. I did reviewe her OARRS report last week that shows an OD risk at 640 and 51 scheduled Rx in the past year from 20 different providers. Related Data Home Medications Medication Instructions Recorded Confirmed celecoxib 200 mg capsule 200 mg PO Q24H 12/30/22 02/19/23 ergocalciferol (vitamin D2) 1,250 1,250 mcg PO .weekly 12/30/22 02/19/23 mcg (50,000 unit) capsule gabapentin 600 mg tablet 600 mg PO QID 12/30/22 02/19/23 hydroxyzine pamoate 50 mg capsule 50 mg PO Q6H PRN anxiety 12/30/22 02/19/23 insulin aspart U-100 100 unit/mL 35 unit subcut QID 12/30/22 02/19/23 (3 mL) subcutaneous pen (Novolog FlexPen U-100 Insulin aspart) insulin degludec 100 unit/mL (3 32 unit subcut Q24H 12/30/22 02/19/23 mL) subcutaneous pen (Tresiba FlexTouch U-100 insulin) loratadine 10 mg tablet 10 mg PO Q24H 12/30/22 02/19/23 metoprolol tartrate 25 mg tablet 50 mg PO Q12H 12/30/22 02/19/23 omeprazole 20 mg capsule,delayed 20 mg PO DAILY 12/30/22 02/19/23 release rosuvastatin 20 mg tablet 20 mg PO BEDTIME 12/30/22 02/19/23 tirzepatide 2.5 mg/0.5 mL 2.5 mg subcut .weekly 12/30/22 02/19/23 subcutaneous pen injector (Marilee) tizanidine 4 mg tablet 4 mg PO Q8H PRN spasms 12/30/22 02/19/23 trazodone 100 mg tablet 200 mg PO BEDTIME 12/30/22 02/19/23 ibuprofen 800 mg tablet 800 mg PO Q8H PRN fever or pain 01/17/23 02/19/23 olanzapine 5 mg tablet 5 mg PO DAILY 01/17/23 02/19/23 promethazine 25 mg tablet 25 mg PO DAILY PRN nausea and 01/17/23 02/19/23 vomiting tramadol 50 mg tablet 50 mg PO Q6H PRN pain 01/17/23 02/19/23 venlafaxine 150 mg 150 mg PO DAILY 02/19/23 02/19/23 capsule,extended release 24 hr Allergies Allergy/AdvReac Type Severity Reaction Status Date / Time melon Allergy Severe Anaphylaxis Verified 02/23/23 19:01 aspirin Allergy Unknown Verified 02/23/23 19:01 fentanyl Allergy Unknown Verified 02/23/23 19:01 ketorolac [From Toradol] Allergy Unknown Verified 02/23/23 19:01 meperidine [From Demerol] Allergy Unknown Verified 02/23/23 19:01 morphine Allergy Unknown Verified 02/23/23 19:01 nalbuphine [From Nubain] Allergy Unknown Verified 02/23/23 19:01 NSAIDS (Non-Steroidal Allergy Unknown Verified 02/23/23 19:01 Anti-Inflamma Penicillins Allergy Unknown Verified 02/23/23 19:01 Review of Systems ROS Status of ROS 10 or more systems reviewed and unremarkable except as noted in history and below PFSH PFS Social History Smoking status: Never smoker Exam Narrative Exam Narrative: Nurses note and vital signs reviewed and patient is not hypoxic. General: Obese, female who is hunched over the bed, no respiratory distress, no active vomiting Skin: Warm, dry, no pallor noted. There is no rash noted. Head: Normocephalic, atraumatic Eye: Normal conjunctiva, no drainage, EOMI. PERRL, no scleral icterus Ears, Nose, Mouth, and Throat: oral mucosa is moist. Cardiovascular: Regular Rate and Rhythm S1S2, no murmurs, rubs or gallops Respiratory: Patient is in no distress, no accessory muscle use, lungs are clear to auscultation, no wheezing, rales or rhonchi Back: Left CVAT GI: Normal bowel sounds, Obese, soft, no reproducible tenderness Musculoskeletal: The patient has no evidence of calf tenderness, no pitting edema, symmetrical pulses noted bilaterally Neurological: A&O x4, normal speech, ambulatory without difficulty, no focal deficits Psychiatric: Cooperative, tearful, flat affect Constitutional Vital Signs, click to edit/add: Last Vital Signs Temp 97.6 F 02/23/23 18:57 Pulse 108 H 02/23/23 18:57 Resp 18 02/23/23 18:57 BP 97/71 02/23/23 21:16 Pulse Ox 93 L 02/23/23 21:16 O2 Del Method Room Air 02/23/23 19:53 Course Vital Signs Vital signs: Vital Signs Temperature 97.6 F 02/23/23 18:57 Pulse Rate 108 H 02/23/23 18:57 Respiratory Rate 18 02/23/23 18:57 Blood Pressure 134/85 02/23/23 18:57 Pulse Oximetry 98 02/23/23 18:57 Oxygen Delivery Method Room Air 02/23/23 18:57 Temperature 97.6 F 02/23/23 18:57 Pulse Rate 108 H 02/23/23 18:57 Respiratory Rate 18 02/23/23 18:57 Blood Pressure 97/71 02/23/23 21:16 Pulse Oximetry 93 L 02/23/23 21:16 Oxygen Delivery Method Room Air 02/23/23 19:53 MDM - Abdominal Pain MDM Narrative Medical decision making narrative: This 47-year-old female with a history of kidney stones who is seen here last night for right-sided epigastric abdominal pain that went into her flank and was noted to have to 2 mm stones in her kidneys at that time presents for evaluation of left flank pain with nausea and vomiting that started earlier today. She also complains of urinary frequency, urgency dysuria and has dark cloudy urine. She has not had a fever. An IV was placed and she was medicated with 1 mg of IV Dilaudid and 12.5 mg of IV Phenergan. The patient allegedly has multiple drug ALLERGIES except to Dilaudid. She was given IV fluids. Reevaluation she stated that she had no relief of her Dilaudid, similar to last week. I am reluctant to give her additional doses of IV narcotic medication due to the fact that she has had 51 prescriptions for controlled substances in the past year from 20 different providers. She appeared to be resting more comfortably and did not have any active vomiting. Routine labs are reviewed. She has a normal white count and hemoglobin. Her urine is positive for red blood cells and a few white blood cells. Culture is pending. Electrolytes are normal. Due to the fact that she was having urinary frequency urgency and dysuria. She was given 400 mg of IV Cipro. CT scan of the abdomen and pelvis shows a small left ureteral stone which is likely the etiology of her symptoms. This was discussed with her and she was given a copy of the CT scan to share with her family physician and urologist. She will be given one additional Percocet for pain control prior to discharge and 2 to take home. I explained to her that I cannot write her up for prescription for narcotics due to the number of narcotic prescriptions she is already receiving. She verbalizes understanding of that. She was given a prescription for Cipro 500 mg to use twice daily for the next 5 days. Medical Records Medical records narrative: The [address] [address] [address] Scan Report Signed Patient: GISEL PAT MR#: [id number] : 1975 Acct:[id number] Age/Sex: 47 / F ADM Date: 02/23/23 Loc: ER Attending Dr: Ordering Physician: Grace Servin Date of Service: 02/23/23 Procedure(s): CT abdomen pelvis wo con Accession Number(s): [id number] cc: Physician,Non-Staff [place]~ The [address] [address] Patient Name: GISEL PAT MRN: [id number] date: 1975 Sex: F Assigned Patient Location: ER Current Patient Location: ER Accession/Order Number: [id number] Exam Date: 02/23/2023 20:48 Report Date: 02/23/2023 22:12 At the request of: GRACE MARKER Procedure: CT abdomen pelvis wo con EXAM: CT abdomen pelvis wo con HISTORY: left flank pain , nausea vomiting. COMPARISON: Multiple priors, most recent CT abdomen pelvis 02/19/2023 TECHNIQUE: Multiple axial views CT abdomen pelvis without IV contrast. Coronal sagittal reformats. FINDINGS: Visualized lung bases demonstrate mild bilateral lower lung linear lung atelectasis/scar. Visualized cardiac apex is unremarkable. Status post cholecystectomy. Liver, pancreas, spleen, adrenal glands, underdistended urinary bladder, and appendix are unremarkable. Uterus is surgically absent. Other pelvic structures are unremarkable. A 2 mm punctate density at the left mid ureter (image 94 series 3). No hydronephrosis or perinephric fluid collection. A 3 mm nonobstructing right superior renal stone. Lobulated bilateral renal cortices, similar to prior exam. Scattered colonic diverticula. No pericolonic inflammatory stranding. Moderate amount of stool within the cecum. Small hiatal hernia. No evidence for small bowel obstruction, large ascites, or free air. No acute bony abnormality. CT/CT abdomen pelvis wo con IMPRESSION: A 2 mm punctate density at the left mid ureter (image 94 series 3) reflecting either ureteral debris or small mid ureteral stone. No hydronephrosis or perinephric fluid collection. Correlate clinically and with urinalysis as indicated. The previously seen 2 mm left inferior renal stone on CT 02/19/2023 is no longer seen within the left kidney on current exam. A 3 mm nonobstructing right superior renal stone. Colonic diverticula without diverticulitis. Appendix is unremarkable. Lab Data Labs: Lab Results 02/23/23 02/23/23 Range/Units 19:45 20:00 WBC 6.7 (4.0-11.0) 10^3/uL RBC 4.51 (4.20-5.40) 10^6/uL Hgb 13.2 (12.0-16.0) g/dL Hct 39.6 (36.0-48.0) % MCV 87.8 (81.0-99.0) fL MCH 29.3 (26.7-34.0) pg MCHC 33.3 (29.9-35.2) g/dL RDW 12.7 (11.0-15.0) % Plt Count 196 (150-450) 10^3/uL MPV 9.0 L (9.5-13.5) fL Neut % (Auto) 53.0 (43.0-75.0) % Lymph % (Auto) 32.3 (20.5-60.0) % [place] % (Auto) 7.1 (1.7-12.0) % Eos % (Auto) 6.2 (0.9-7.0) % Baso % (Auto) 1.1 (0.2-2.0) % Neut # (Auto) 3.5 (1.4-6.5) 10^3/uL Lymph # (Auto) 2.2 (1.2-3.8) 10^3/uL [place] # (Auto) 0.5 (0.3-0.8) 10^3/uL Eos # (Auto) 0.4 (0.0-0.7) 10^3/uL Baso # (Auto) 0.1 (0.0-0.1) 10^3/uL Abs Immat Gran (auto) 0.02 (0.00-0.03) 10^3/uL Imm/Tot Granulo (auto) 0.3 (0.0-0.5) % Sodium 139 (136-145) mmol/L Potassium 3.4 L (3.5-5.1) mmol/L Chloride 104 (98-107) mmol/L Carbon Dioxide 31.3 (21.0-32.0) mmol/L Anion Gap 7.1 BUN 14.0 (7.0-18.0) mg/dL Creatinine 0.78 (0.55-1.02) mg/dL Est GFR ( Amer) >60 (>=60) Est GFR (Non-Af Amer) >60 (>=60) BUN/Creatinine Ratio 17.9 Glucose 100 (74-106) mg/dL Calcium 9.1 (8.5-10.1) mg/dL Total Bilirubin 0.3 (0.2-1.0) mg/dL AST 12 L (15-37) U/L ALT 25 (14-59) U/L Alkaline Phosphatase 84 (46-116) U/L Total Protein 7.7 (6.4-8.2) g/dL Albumin 3.6 (3.4-5.0) g/dL Globulin 4.1 g/dL Albumin/Globulin Ratio 0.9 Lipase 99.0 (73.0-393.0) U/L Urine Color Yellow (YELLOW) Urine Clarity Clear (CLEAR) Urine pH 6.0 (5.0-9.0) Ur Specific [place] >=1.030 A (1.005-1.025) Urine Protein Trace (NEG/TRACE) mg/dL Urine Glucose (UA) Negative (NEGATIVE) mg/dL Urine Ketones Negative (NEGATIVE) mg/dL Urine Occult Blood Large A (NEGATIVE) Urine Nitrite Negative (NEGATIVE) Urine Bilirubin Negative (NEGATIVE) Urine Urobilinogen 0.2 (0.2-1.0) EU/dL Ur Leukocyte Esterase Negative (NEGATIVE) Urine RBC 50-75 A (0-2) #/HPF Urine WBC None seen (NONE SEEN) #/HPF Ur Squamous Epith Cells Rare (NONE/RARE) #/LPF Urine Crystals None seen (None Seen) #/HPF Urine Bacteria None seen (NONE SEEN) #/HPF Urine Casts None seen (NONE SEEN) #/LPF Urine Mucus None seen (NONE SEEN) Ur Culture Indicated? No Discharge Plan Discharge Chief Complaint: Abdominal Pain Clinical Impression: Kidney stone Patient Disposition: Home, Self-Care Time of Disposition Decision: 22:31 Condition: Good Prescriptions / Home Meds: No Action ibuprofen 800 mg tablet 800 mg PO Q8H PRN (Reason: fever or pain) olanzapine 5 mg tablet 5 mg PO DAILY Rx Instructions: HS promethazine 25 mg tablet 25 mg PO DAILY PRN (Reason: nausea and vomiting) tramadol 50 mg tablet 50 mg PO Q6H PRN (Reason: pain) celecoxib 200 mg capsule 200 mg PO Q24H ergocalciferol (vitamin D2) 1,250 mcg (50,000 unit) capsule 1,250 mcg PO .weekly gabapentin 600 mg tablet 600 mg PO QID hydroxyzine pamoate 50 mg capsule 50 mg PO Q6H PRN (Reason: anxiety) insulin aspart U-100 [Novolog FlexPen U-100 Insulin] 100 unit/mL (3 mL) insulin pen 35 unit SUBCUT QID Patient Comments: plus sliding scale insulin degludec [Tresiba FlexTouch U-100] 100 unit/mL (3 mL) insulin pen 32 unit SUBCUT Q24H loratadine 10 mg tablet 10 mg PO Q24H metoprolol tartrate 25 mg tablet 50 mg PO Q12H omeprazole 20 mg capsule,delayed release(DR/EC) 20 mg PO DAILY rosuvastatin 20 mg tablet 20 mg PO BEDTIME Mounjaro 2.5 mg/0.5 mL pen injector 2.5 mg SUBCUT .weekly tizanidine 4 mg tablet 4 mg PO Q8H PRN (Reason: spasms) trazodone 100 mg tablet 200 mg PO BEDTIME venlafaxine 150 mg capsule,extended release 24hr 150 mg PO DAILY Instructions: Kidney Stones (ED) Stand Alone Forms: Portal Instructions Referrals: Physician,Non-Staff, MD [Primary Care Provider] - 1 week
--- NOTE | 2023-02-23 20:06 | CT_ITS ---
The [address] [address] Patient Name: GISEL PAT MRN: [id number] date: 1975 Sex: F Assigned Patient Location: ER Current Patient Location: ER Accession/Order Number: [id number] Exam Date: 02/23/2023 20:48 Report Date: 02/23/2023 22:12 At the request of: NOVA MARKER Procedure: CT abdomen pelvis wo con EXAM: CT abdomen pelvis wo con HISTORY: left flank pain , nausea vomiting. COMPARISON: Multiple priors, most recent CT abdomen pelvis 02/19/2023 TECHNIQUE: Multiple axial views CT abdomen pelvis without IV contrast. Coronal sagittal reformats. FINDINGS: Visualized lung bases demonstrate mild bilateral lower lung linear lung atelectasis/scar. Visualized cardiac apex is unremarkable. Status post cholecystectomy. Liver, pancreas, spleen, adrenal glands, underdistended urinary bladder, and appendix are unremarkable. Uterus is surgically absent. Other pelvic structures are unremarkable. A 2 mm punctate density at the left mid ureter (image 94 series 3). No hydronephrosis or perinephric fluid collection. A 3 mm nonobstructing right superior renal stone. Lobulated bilateral renal cortices, similar to prior exam. Scattered colonic diverticula. No pericolonic inflammatory stranding. Moderate amount of stool within the cecum. Small hiatal hernia. No evidence for small bowel obstruction, large ascites, or free air. No acute bony abnormality. CT/CT abdomen pelvis wo con IMPRESSION: A 2 mm punctate density at the left mid ureter (image 94 series 3) reflecting either ureteral debris or small mid ureteral stone. No hydronephrosis or perinephric fluid collection. Correlate clinically and with urinalysis as indicated. The previously seen 2 mm left inferior renal stone on CT 02/19/2023 is no longer seen within the left kidney on current exam. A 3 mm nonobstructing right superior renal stone. Colonic diverticula without diverticulitis. Appendix is unremarkable. Electronically authenticated by: NAREN TSE Date: 02/23/2023 22:12
[2023-02-23 20:10] LABS: Basophils Absolute Auto 0.1 10^3/uL (0.0-0.1); Basophils Percent Auto 1.1 % (0.2-2.0); Eosinophils Absolute Auto 0.4 10^3/uL (0.0-0.7); Eosinophils Percent Auto 6.2 % (0.9-7.0); Hematocrit 39.6 % (36.0-48.0); Hemoglobin 13.2 g/dL (12.0-16.0); Immature Granulocytes Abs Auto 0.02 10^3/uL (0.00-0.03); Immature Granulocytes Pct Auto 0.3 % (0.0-0.5); Lymphocytes Absolute Auto 2.2 10^3/uL (1.2-3.8); Lymphocytes Percent Auto 32.3 % (20.5-60.0); Mean Corpuscular HGB Conc 33.3 g/dL (29.9-35.2); Mean Corpuscular Hemoglobin 29.3 pg (26.7-34.0); Mean Corpuscular Volume 87.8 fL (81.0-99.0); Monocytes Absolute Auto 0.5 10^3/uL (0.3-0.8); Monocytes Percent Auto 7.1 % (1.7-12.0); Neutrophils Absolute Auto 3.5 10^3/uL (1.4-6.5); Platelet Count 196 10^3/uL (150-450); Red Blood Count 4.51 10^6/uL (4.20-5.40); Red Cell Distribution Width 12.7 % (11.0-15.0); White Blood Count 6.7 10^3/uL (4.0-11.0)
[2023-02-23] MEDS: HYDROMORPHONE HCL 0.5 MG/0.5 ML SYRINGE 1 MG IV (20:12)
[2023-02-23] MEDS: PROMETHAZINE HCL 25 MG/ML VIAL 12.5 MG IV (20:12)
[2023-02-23 20:13] LABS: Bilirubin Urine NEGATIVE (NEGATIVE); Blood Urine LARGE (NEGATIVE); Clarity Urine CLEAR (CLEAR); Color Urine YELLOW (YELLOW); Glucose Urine UA NEGATIVE (NEGATIVE); Ketones Urine NEGATIVE (NEGATIVE); Leukocyte Esterase Urine NEGATIVE (NEGATIVE); Nitrite Urine NEGATIVE (NEGATIVE); Protein Urine TRACE mg/dL (NEG/TRACE); Specific Gravity Urine >=1.030 (1.005-1.025); Urobilinogen Urine 0.2 EU/dL (0.2-1.0)
[2023-02-23] MEDS: 0.9 % SODIUM CHLORIDE 1,000 ML 1000 ML IV (20:13)
[2023-02-23 20:21] LABS: WBC Urine NONE SEEN #/HPF (NONE SEEN)
[2023-02-23 20:22] LABS: Bacteria Urine NONE SEEN #/HPF (NONE SEEN); Cast Seen? NONE SEEN #/LPF (NONE SEEN); Crystals Seen? None Seen #/HPF (None Seen); Mucus Urine NONE SEEN (NONE SEEN); RBC Urine 50-75 #/HPF (0-2); Squamous Epithelial Cell Urine RARE #/LPF (NONE/RARE); Urine Culture Indicated NO
[2023-02-23 20:31] LABS: Alanine Aminotransferase 25 U/L (14-59); Albumin Globulin Ratio 0.9; Albumin Level 3.6 g/dL (3.4-5.0); Alkaline Phosphatase 84 U/L (46-116); Anion Gap 7.1; Aspartate Amino Transferase 12 U/L (15-37); BUN Creatinine Ratio 17.9; Bilirubin Total 0.3 mg/dL (0.2-1.0); Calcium 9.1 mg/dL (8.5-10.1); Carbon Dioxide 31.3 mmol/L (21.0-32.0); Chloride 104 mmol/L (98-107); Estimated GFR (African America >60 (>=60); Estimated GFR (Non-African Ame >60 (>=60); Globulin 4.1 g/dL; Glucose 100 mg/dL (74-106); Potassium 3.4 mmol/L (3.5-5.1); Sodium 139 mmol/L (136-145); Total Protein 7.7 g/dL (6.4-8.2)
[2023-02-23] MEDS: CIPROFLOXACIN IN 5 % DEXTROSE 400 MG/200 ML PIGGYBACK 200 MG IV (21:18)
== END 2023-02-23 22:54 | disposition home or self-care (01) ==
PROVIDERS: Emergency Provider Emergency Medicine
DX: N20.0 Calculus of kidney (principal); Z90.710 Acquired absence of both cervix and uterus; Z79.899 Other long term (current) drug therapy; Z79.4 Long term (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 of insulin; E66.9 Obesity, unspecified; Z87.442 Personal history of urinary calculi; Z68.41 Body mass index [BMI] 40.0-44.9, adult
CPT/HCPCS: 36415; 74176; 80053; 81001; 83690; 85025; 96361; 96365; 96366; 96375; 99285; J1170

== ENCOUNTER 2023-02-26 19:19 | Emergency (ER) | payer OTHER, SELFPAY ==
[2023-02-26 19:42] VITALS: BP 147/97; PULSE 114; RESP 18; TEMP 36.9; O2SAT 97; BMI 40.7
--- NOTE | 2023-02-26 19:52 | XR_ITS ---
The [address] [address] Patient Name: GISEL PAT MRN: [id number] date: 1975 Sex: F Assigned Patient Location: ER Current Patient Location: ER Accession/Order Number: [id number] Exam Date: 02/26/2023 20:02 Report Date: 02/26/2023 20:36 At the request of: GAVIN ENGLE Procedure: XR acute abdomen series EXAM: XR acute abdomen series HISTORY: right abd pain, vomiting, hx kidney stones COMPARISON: CT abdomen and pelvis 02/23/2023 TECHNIQUE: 4 AP radiographs of the chest, abdomen and pelvis FINDINGS: CHEST: No pneumothorax, pleural effusion or consolidation. Trace fluid is seen in the minor fissure. Normal heart size. No acute osseous abnormality. ABDOMEN/PELVIS: Status post cholecystectomy. Moderate colonic stool burden with a nonobstructed bowel gas pattern. Previously seen 2 mm stone in the left mid ureter is is again noted essentially between L4 and L5 vertebral bodies, unchanged in position from prior. Previously described nonobstructing 3 mm stone of the right kidney is not well appreciated secondary to overlying bowel contents. Imaged osseous structures are intact. XR/XR acute abdomen series IMPRESSION: Essentially unchanged position of 2 mm stone in the left mid-distal ureter from the prior CT. Previously described nonobstructing stone of the right kidney is not visualized secondary to overlying bowel contents. No acute abnormality of the chest. Electronically authenticated by: JAYLA SANCHEZ Date: 02/26/2023 20:36
--- NOTE | 2023-02-26 20:01 | ED_ITS ---
HPI - General Adult General Chief complaint: Back Pain/Injury Stated complaint: RIGHT SIDE PAIN/ESOPHAGUS ON FIRE Time Seen by Provider: 02/26/23 19:29 Source: patient Mode of arrival: walk-in History of Present Illness HPI narrative: right sided abdominal pain, nausea and vomiting. She also has dysuria and urinary frequency. Patient diagnosed with bilateral kidney stones and UTI. She had been taking cipro. Nothing prescribed for nausea. She also complains of esophagus pain from the vomiting . No fever or chills. No rash. Related Data Home Medications Medication Instructions Recorded Confirmed celecoxib 200 mg capsule 200 mg PO Q24H 12/30/22 02/19/23 ergocalciferol (vitamin D2) 1,250 1,250 mcg PO .weekly 12/30/22 02/19/23 mcg (50,000 unit) capsule gabapentin 600 mg tablet 600 mg PO QID 12/30/22 02/19/23 hydroxyzine pamoate 50 mg capsule 50 mg PO Q6H PRN anxiety 12/30/22 02/19/23 insulin aspart U-100 100 unit/mL 35 unit subcut QID 12/30/22 02/19/23 (3 mL) subcutaneous pen (Novolog FlexPen U-100 Insulin aspart) insulin degludec 100 unit/mL (3 32 unit subcut Q24H 12/30/22 02/19/23 mL) subcutaneous pen (Tresiba FlexTouch U-100 insulin) loratadine 10 mg tablet 10 mg PO Q24H 12/30/22 02/19/23 metoprolol tartrate 25 mg tablet 50 mg PO Q12H 12/30/22 02/19/23 omeprazole 20 mg capsule,delayed 20 mg PO DAILY 12/30/22 02/19/23 release rosuvastatin 20 mg tablet 20 mg PO BEDTIME 12/30/22 02/19/23 tirzepatide 2.5 mg/0.5 mL 2.5 mg subcut .weekly 12/30/22 02/19/23 subcutaneous pen injector (Marilee) tizanidine 4 mg tablet 4 mg PO Q8H PRN spasms 12/30/22 02/19/23 trazodone 100 mg tablet 200 mg PO BEDTIME 12/30/22 02/19/23 ibuprofen 800 mg tablet 800 mg PO Q8H PRN fever or pain 01/17/23 02/19/23 olanzapine 5 mg tablet 5 mg PO DAILY 01/17/23 02/19/23 promethazine 25 mg tablet 25 mg PO DAILY PRN nausea and 01/17/23 02/19/23 vomiting tramadol 50 mg tablet 50 mg PO Q6H PRN pain 01/17/23 02/19/23 venlafaxine 150 mg 150 mg PO DAILY 02/19/23 02/19/23 capsule,extended release 24 hr Previous Rx's Medication Instructions Recorded cephalexin 500 mg capsule 500 mg PO BID 7 days #13 caps 02/26/23 hyoscyamine sulfate 0.125 mg 0.125 mg PO Q6H PRN abdominal pain 02/26/23 sublingual tablet (Levsin/SL) #20 tabs promethazine 25 mg tablet 25 mg PO Q6H PRN nausea and 02/26/23 vomiting #30 tabs Allergies Allergy/AdvReac Type Severity Reaction Status Date / Time melon Allergy Severe Anaphylaxis Verified 02/26/23 19:47 aspirin Allergy Unknown Verified 02/26/23 19:47 fentanyl Allergy Unknown Verified 02/26/23 19:47 ketorolac [From Toradol] Allergy Unknown Verified 02/26/23 19:47 meperidine [From Demerol] Allergy Unknown Verified 02/26/23 19:47 morphine Allergy Unknown Verified 02/26/23 19:47 nalbuphine [From Nubain] Allergy Unknown Verified 02/26/23 19:47 NSAIDS (Non-Steroidal Allergy Unknown Verified 02/26/23 19:47 Anti-Inflamma Penicillins Allergy Unknown Verified 02/26/23 19:47 PFSH PFSH Social History Smoking status: Never smoker Exam Narrative Exam Narrative: Nurses notes and vital signs reviewed and patient is not hypoxic. afebrile General: Well-appearing and in no apparent distress. Skin: Warm, dry, no pallor noted. No rash. Head: Normocephalic, atraumatic. Eye: Pupils are equal, round and EOMI. No scleral icterus. Cardiovascular: Regular Rate and Rhythm without murmur, gallop or rub. Respiratory: No accessory muscle use or respiratory distress. Lungs are clear to auscultation, no wheezing, rales or rhonchi Back: No midline thoracic or lumbar vertebral tenderness. Right CVA tenderness Musculoskeletal: normal ROM, no calf or popliteal tenderness, no lower extremity edema/swelling GI: Abdomen is soft, non-distended. Normal bowel sounds. No masses appreciated. Epigastric and right sided tenderness to palpation. No rebound, guarding, or rigidity noted. Neurological: A&O x4. No cranial nerve dysfunction observed. No truncal ataxia. Moves all extremities. Sensation intact. Psychiatric: Cooperative and interactive. Normal mood and affect. Constitutional Vital Signs, click to edit/add: Last Vital Signs Temp 98.4 F 02/26/23 19:42 Pulse 114 H 02/26/23 19:42 Resp 18 02/26/23 19:42 BP 147/97 H 02/26/23 19:42 Pulse Ox 97 02/26/23 19:42 O2 Del Method Room Air 02/26/23 19:42 Course Vital Signs Vital signs: Vital Signs Temperature 98.4 F 02/26/23 19:42 Pulse Rate 114 H 02/26/23 19:42 Respiratory Rate 18 02/26/23 19:42 Blood Pressure 147/97 H 02/26/23 19:42 Pulse Oximetry 97 02/26/23 19:42 Oxygen Delivery Method Room Air 02/26/23 19:42 Temperature 98.4 F 02/26/23 19:42 Pulse Rate 114 H 02/26/23 19:42 Respiratory Rate 18 02/26/23 19:42 Blood Pressure 147/97 H 02/26/23 19:42 Pulse Oximetry 97 02/26/23 19:42 Oxygen Delivery Method Room Air 02/26/23 19:42 Medical Decision Making MDM Narrative Medical decision making narrative: peripheral IV established and blood drawn and sent for testing. Urine was also obtained and sent for testing. Patient was ordered to receive IV Dilaudid, IV Zofran and was sent for x-rays of the abdomen and chest. Labs and xrays notable for left ureteral stone, mild decrease in Na and K, elevated glucose and blood in urine - possibly from UTI but certainly associated with her ureteral stone. She received IV Phenergan when her nausea did not improve with the zofran. She was also given SL Levsin when the dilaudid did not help. No sign of sepsis. Normal WBC. No obstruction on abd xrays - no CT done as she has had two in the last few weeks. She has an appointment with her urologist at an outside facility. She was discharged home with prescriptions for Levsin, Phenergan and started on Keflex for her early UTI - culture is pending. Lab Data Lab results reviewed: Yes I reviewed the patient's lab results Labs: Lab Results 02/26/23 Range/Units 20:02 WBC 8.0 (4.0-11.0) 10^3/uL RBC 4.62 (4.20-5.40) 10^6/uL Hgb 13.5 (12.0-16.0) g/dL Hct 40.5 (36.0-48.0) % MCV 87.7 (81.0-99.0) fL MCH 29.2 (26.7-34.0) pg MCHC 33.3 (29.9-35.2) g/dL RDW 12.6 (11.0-15.0) % Plt Count 206 (150-450) 10^3/uL MPV 8.7 L (9.5-13.5) fL Neut % (Auto) 58.0 (43.0-75.0) % Lymph % (Auto) 28.7 (20.5-60.0) % [place] % (Auto) 7.3 (1.7-12.0) % Eos % (Auto) 5.0 (0.9-7.0) % Baso % (Auto) 0.9 (0.2-2.0) % Neut # (Auto) 4.6 (1.4-6.5) 10^3/uL Lymph # (Auto) 2.3 (1.2-3.8) 10^3/uL [place] # (Auto) 0.6 (0.3-0.8) 10^3/uL Eos # (Auto) 0.4 (0.0-0.7) 10^3/uL Baso # (Auto) 0.1 (0.0-0.1) 10^3/uL Abs Immat Gran (auto) 0.01 (0.00-0.03) 10^3/uL Imm/Tot Granulo (auto) 0.1 (0.0-0.5) % Sodium 134 L (136-145) mmol/L Potassium 3.3 L (3.5-5.1) mmol/L Chloride 103 (98-107) mmol/L Carbon Dioxide 29.5 (21.0-32.0) mmol/L Anion Gap 4.8 BUN 13.0 (7.0-18.0) mg/dL Creatinine 0.96 (0.55-1.02) mg/dL Est GFR ( Amer) >60 (>=60) Est GFR (Non-Af Amer) >60 (>=60) BUN/Creatinine Ratio 13.5 Glucose 155 H (74-106) mg/dL Calcium 8.7 (8.5-10.1) mg/dL Total Bilirubin 0.3 (0.2-1.0) mg/dL AST 12 L (15-37) U/L ALT 25 (14-59) U/L Alkaline Phosphatase 82 (46-116) U/L Total Protein 7.8 (6.4-8.2) g/dL Albumin 3.6 (3.4-5.0) g/dL Globulin 4.2 g/dL Albumin/Globulin Ratio 0.9 Lipase 147.0 (73.0-393.0) U/L Urine Color Yellow (YELLOW) Urine Clarity Clear (CLEAR) Urine pH 6.5 (5.0-9.0) Ur Specific [place] 1.025 (1.005-1.025) Urine Protein Trace (NEG/TRACE) mg/dL Urine Glucose (UA) 500 A (NEGATIVE) mg/dL Urine Ketones Trace A (NEGATIVE) mg/dL Urine Occult Blood Large A (NEGATIVE) Urine Nitrite Negative (NEGATIVE) Urine Bilirubin Negative (NEGATIVE) Urine Urobilinogen 2.0 A (0.2-1.0) EU/dL Ur Leukocyte Esterase Trace A (NEGATIVE) Urine RBC 50-75 A (0-2) #/HPF Urine WBC 0-2 A (NONE SEEN) #/HPF Ur Squamous Epith Cells Few A (NONE/RARE) #/LPF Urine Crystals None seen (None Seen) #/HPF Urine Bacteria None seen (NONE SEEN) #/HPF Urine Casts None seen (NONE SEEN) #/LPF Urine Mucus None seen (NONE SEEN) Ur Culture Indicated? No Imaging Data Abdominal x-ray: Attestation: I have reviewed the pertinent imaging results. Radiologist's impression: Patient Name: GISEL PAT MRN: [facility]:[id number] date: 1975 Sex: F Assigned Patient Location: ER Current Patient Location: ER Accession/Order Number: [id number] Exam Date: 02/26/2023 20:02 Report Date: 02/26/2023 20:36 At the request of: GAVIN ENGLE Procedure: XR acute abdomen series EXAM: XR acute abdomen series HISTORY: right abd pain, vomiting, hx kidney stones COMPARISON: CT abdomen and pelvis 02/23/2023 TECHNIQUE: 4 AP radiographs of the chest, abdomen and pelvis FINDINGS: CHEST: No pneumothorax, pleural effusion or consolidation. Trace fluid is seen in the minor fissure. Normal heart size. No acute osseous abnormality. ABDOMEN/PELVIS: Status post cholecystectomy. Moderate colonic stool burden with a nonobstructed bowel gas pattern. Previously seen 2 mm stone in the left mid ureter is is again noted essentially between L4 and L5 vertebral bodies, unchanged in position from prior. Previously described nonobstructing 3 mm stone of the right kidney is not well appreciated secondary to overlying bowel contents. Imaged osseous structures are intact. IMPRESSION: Essentially unchanged position of 2 mm stone in the left mid-distal ureter from the prior CT. Previously described nonobstructing stone of the right kidney is not visualized secondary to overlying bowel contents. No acute abnormality of the chest. Electronically authenticated by: JAYLA SANCHEZ Date: 02/26/2023 20:36 Discharge Plan Discharge Chief Complaint: Back Pain/Injury Clinical Impression: UTI (urinary tract infection), Nausea & vomiting, Kidney stone, Abdominal pain Patient Disposition: Home, Self-Care Time of Disposition Decision: 21:06 Prescriptions / Home Meds: New cephalexin 500 mg capsule 500 mg PO BID 7 Days Qty: 13 0RF hyoscyamine sulfate [Levsin/SL] 0.125 mg tablet, sublingual 0.125 mg PO Q6H PRN (Reason: abdominal pain) Qty: 20 0RF promethazine 25 mg tablet 25 mg PO Q6H PRN (Reason: nausea and vomiting) Qty: 30 0RF No Action ibuprofen 800 mg tablet 800 mg PO Q8H PRN (Reason: fever or pain) olanzapine 5 mg tablet 5 mg PO DAILY Rx Instructions: HS promethazine 25 mg tablet 25 mg PO DAILY PRN (Reason: nausea and vomiting) tramadol 50 mg tablet 50 mg PO Q6H PRN (Reason: pain) celecoxib 200 mg capsule 200 mg PO Q24H ergocalciferol (vitamin D2) 1,250 mcg (50,000 unit) capsule 1,250 mcg PO .weekly gabapentin 600 mg tablet 600 mg PO QID hydroxyzine pamoate 50 mg capsule 50 mg PO Q6H PRN (Reason: anxiety) insulin aspart U-100 [Novolog FlexPen U-100 Insulin] 100 unit/mL (3 mL) insulin pen 35 unit SUBCUT QID Patient Comments: plus sliding scale insulin degludec [Tresiba FlexTouch U-100] 100 unit/mL (3 mL) insulin pen 32 unit SUBCUT Q24H loratadine 10 mg tablet 10 mg PO Q24H metoprolol tartrate 25 mg tablet 50 mg PO Q12H omeprazole 20 mg capsule,delayed release(DR/EC) 20 mg PO DAILY rosuvastatin 20 mg tablet 20 mg PO BEDTIME Mounjaro 2.5 mg/0.5 mL pen injector 2.5 mg SUBCUT .weekly tizanidine 4 mg tablet 4 mg PO Q8H PRN (Reason: spasms) trazodone 100 mg tablet 200 mg PO BEDTIME venlafaxine 150 mg capsule,extended release 24hr 150 mg PO DAILY Instructions: Kidney Stones (ED), Urinary Tract Infection in Women (ED), Acute Nausea and Vomiting (ED), Abdominal Pain (ED) Stand Alone Forms: Portal Instructions Referrals: Physician,Non-Staff, MD [Primary Care Provider] - 1 week
[2023-02-26] MEDS: ONDANSETRON PF 4 MG/2 ML VIAL IV (20:10)
[2023-02-26] MEDS: HYDROMORPHONE HCL 1 MG/ML CARTRIDGE IVP (20:11)
[2023-02-26] MEDS: 0.9 % SODIUM CHLORIDE 1,000 ML 100 ML IV (20:11)
[2023-02-26 20:17] LABS: Basophils Absolute Auto 0.1 10^3/uL (0.0-0.1); Basophils Percent Auto 0.9 % (0.2-2.0); Eosinophils Absolute Auto 0.4 10^3/uL (0.0-0.7); Hematocrit 40.5 % (36.0-48.0); Hemoglobin 13.5 g/dL (12.0-16.0); Immature Granulocytes Abs Auto 0.01 10^3/uL (0.00-0.03); Immature Granulocytes Pct Auto 0.1 % (0.0-0.5); Lymphocytes Absolute Auto 2.3 10^3/uL (1.2-3.8); Lymphocytes Percent Auto 28.7 % (20.5-60.0); Mean Corpuscular HGB Conc 33.3 g/dL (29.9-35.2); Mean Corpuscular Hemoglobin 29.2 pg (26.7-34.0); Mean Corpuscular Volume 87.7 fL (81.0-99.0); Mean Platelet Volume 8.7 fL (9.5-13.5); Monocytes Absolute Auto 0.6 10^3/uL (0.3-0.8); Monocytes Percent Auto 7.3 % (1.7-12.0); Neutrophils Absolute Auto 4.6 10^3/uL (1.4-6.5); Platelet Count 206 10^3/uL (150-450); Red Blood Count 4.62 10^6/uL (4.20-5.40); Red Cell Distribution Width 12.6 % (11.0-15.0)
[2023-02-26 20:20] LABS: Bilirubin Urine NEGATIVE (NEGATIVE); Blood Urine LARGE (NEGATIVE); Clarity Urine CLEAR (CLEAR); Color Urine YELLOW (YELLOW); Glucose Urine UA 500 mg/dL (NEGATIVE); Ketones Urine TRACE mg/dL (NEGATIVE); Leukocyte Esterase Urine TRACE (NEGATIVE); Nitrite Urine NEGATIVE (NEGATIVE); Protein Urine TRACE mg/dL (NEG/TRACE); Specific Gravity Urine 1.025 (1.005-1.025); Urine Microscopic Indicated YES; pH Urine 6.5 (5.0-9.0)
[2023-02-26 20:27] LABS: WBC Urine 0-2 #/HPF (NONE SEEN)
[2023-02-26 20:28] LABS: Bacteria Urine NONE SEEN #/HPF (NONE SEEN); Cast Seen? NONE SEEN #/LPF (NONE SEEN); Crystals Seen? None Seen #/HPF (None Seen); Mucus Urine NONE SEEN (NONE SEEN); RBC Urine 50-75 #/HPF (0-2); Squamous Epithelial Cell Urine FEW #/LPF (NONE/RARE); Urine Culture Indicated NO
[2023-02-26 20:33] LABS: Alanine Aminotransferase 25 U/L (14-59); Albumin Globulin Ratio 0.9; Albumin Level 3.6 g/dL (3.4-5.0); Alkaline Phosphatase 82 U/L (46-116); Anion Gap 4.8; Aspartate Amino Transferase 12 U/L (15-37); BUN Creatinine Ratio 13.5; Bilirubin Total 0.3 mg/dL (0.2-1.0); Calcium 8.7 mg/dL (8.5-10.1); Carbon Dioxide 29.5 mmol/L (21.0-32.0); Chloride 103 mmol/L (98-107); Estimated GFR (African America >60 (>=60); Estimated GFR (Non-African Ame >60 (>=60); Globulin 4.2 g/dL; Glucose 155 mg/dL (74-106); Potassium 3.3 mmol/L (3.5-5.1); Sodium 134 mmol/L (136-145); Total Protein 7.8 g/dL (6.4-8.2)
[2023-02-26] MEDS: PROMETHAZINE HCL 25 MG/ML VIAL 12.5 MG IV (20:55)
[2023-02-26] MEDS: HYOSCYAMINE SULFATE 0.125 MG TAB.SUBL SL (21:28)
[2023-02-26] MEDS: CEPHALEXIN 500 MG CAPSULE PO (21:28)
== END 2023-02-26 21:41 | disposition home or self-care (01) ==
PROVIDERS: Emergency Provider Emergency Medicine
DX: N39.0 Urinary tract infection, site not specified (principal); R11.2 Nausea with vomiting, unspecified; N20.0 Calculus of kidney; R10.9 Unspecified abdominal pain; Z79.899 Other long term (current) drug therapy; Z79.4 Long term (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 of insulin
CPT/HCPCS: 36415; 74022; 80053; 81001; 83690; 85025; 87086; 96361; 96374; 96375; 99285; J1170

== ENCOUNTER 2023-03-01 04:34 | Emergency (ER) | payer OTHER, SELFPAY ==
[2023-03-01] VITALS (13 sets, daily range): BP systolic 101–110; BP diastolic 62–80; PULSE 86–88; RESP 8–30; TEMP 36.6; O2SAT 93–99; BMI 40.7
--- NOTE | 2023-03-01 04:38 | ED.GENADUL1 ---
HPI - General Adult General Chief complaint: Fall Stated complaint: lightheaded Time Seen by Provider: 03/01/23 04:38 History of Present Illness HPI narrative: pt presents emergency department via EMS with a complaint of head injury and dizziness. Patient states that around 1:00 she woke up to urinate as she was walking around her bed she tripped over a cord and hit her head against the bed. She denies any loss of consciousness. She states after that she vomited 2 times. she has a headache she feels like she has blurred vision. She feels like the room spinning. She states she took some Phenergan at home and tizanidine. Patient had multiple visits in the last month for nausea and vomiting. Patient denies any neck pain. She denies any hematemesis, melena, hematochezia. She denies any abdominal pain. She states her entire back hurts although she landed on her abdomen. She also states that she has right knee pain. She has been able to bear weight. She denies any hematuria, dysuria. She denies any fever, chills, or cough. She denies any chest pain, shortness of breath. Related Data Home Medications Medication Instructions Recorded Confirmed celecoxib 200 mg capsule 200 mg PO Q24H 12/30/22 02/19/23 ergocalciferol (vitamin D2) 1,250 1,250 mcg PO .weekly 12/30/22 02/19/23 mcg (50,000 unit) capsule gabapentin 600 mg tablet 600 mg PO QID 12/30/22 02/19/23 hydroxyzine pamoate 50 mg capsule 50 mg PO Q6H PRN anxiety 12/30/22 02/19/23 insulin aspart U-100 100 unit/mL 35 unit subcut QID 12/30/22 02/19/23 (3 mL) subcutaneous pen (Novolog FlexPen U-100 Insulin aspart) insulin degludec 100 unit/mL (3 32 unit subcut Q24H 12/30/22 02/19/23 mL) subcutaneous pen (Tresiba FlexTouch U-100 insulin) loratadine 10 mg tablet 10 mg PO Q24H 12/30/22 02/19/23 metoprolol tartrate 25 mg tablet 50 mg PO Q12H 12/30/22 02/19/23 omeprazole 20 mg capsule,delayed 20 mg PO DAILY 12/30/22 02/19/23 release rosuvastatin 20 mg tablet 20 mg PO BEDTIME 12/30/22 02/19/23 tirzepatide 2.5 mg/0.5 mL 2.5 mg subcut .weekly 12/30/22 02/19/23 subcutaneous pen injector (Marilee) tizanidine 4 mg tablet 4 mg PO Q8H PRN spasms 12/30/22 02/19/23 trazodone 100 mg tablet 200 mg PO BEDTIME 12/30/22 02/19/23 ibuprofen 800 mg tablet 800 mg PO Q8H PRN fever or pain 01/17/23 02/19/23 olanzapine 5 mg tablet 5 mg PO DAILY 01/17/23 02/19/23 promethazine 25 mg tablet 25 mg PO DAILY PRN nausea and 01/17/23 02/19/23 vomiting tramadol 50 mg tablet 50 mg PO Q6H PRN pain 01/17/23 02/19/23 venlafaxine 150 mg 150 mg PO DAILY 02/19/23 02/19/23 capsule,extended release 24 hr Previous Rx's Medication Instructions Recorded cephalexin 500 mg capsule 500 mg PO BID 7 days #13 caps 02/26/23 hyoscyamine sulfate 0.125 mg 0.125 mg PO Q6H PRN abdominal pain 02/26/23 sublingual tablet (Levsin/SL) #20 tabs promethazine 25 mg tablet 25 mg PO Q6H PRN nausea and 02/26/23 vomiting #30 tabs meclizine 50 mg tablet (Antivert) 50 mg PO BID PRN dizziness #20 tabs 03/01/23 tramadol 50 mg tablet 50 mg PO TID PRN pain 5 days #10 03/01/23 tabs Allergies Allergy/AdvReac Type Severity Reaction Status Date / Time melon Allergy Severe Anaphylaxis Verified 03/01/23 04:48 aspirin Allergy Unknown Verified 03/01/23 04:48 fentanyl Allergy Unknown Verified 03/01/23 04:48 ketorolac [From Toradol] Allergy Unknown Verified 03/01/23 04:48 meperidine [From Demerol] Allergy Unknown Verified 03/01/23 04:48 morphine Allergy Unknown Verified 03/01/23 04:48 nalbuphine [From Nubain] Allergy Unknown Verified 03/01/23 04:48 NSAIDS (Non-Steroidal Allergy Unknown Verified 03/01/23 04:48 Anti-Inflamma Penicillins Allergy Unknown Verified 03/01/23 04:48 Review of Systems ROS Status of ROS 10 or more systems reviewed and unremarkable except as noted in history and below [facility] Social History Smoking status: Never smoker Exam Narrative Exam Narrative: Nurses notes and vital signs reviewed and patient is not hypoxic. General: Nontoxic, Well-appearing and in no apparent distress. Skin: Warm, dry, no pallor noted. No Rash Head: Normocephalic, atraumatic. Neck: Supple, non-tender. Eye: Pupils are equal, round and EOMI. No scleral icterus. 1 cm area of ecchymosis to the left. Orbital area. Tenderness to palpation. There are no step-offs. Extraocular muscles are intact. Ears, Nose, Mouth, and Throat: TM clear, no Hemotympanum, no posterior oropharynx erythema or nasal mucosal hypertrophy, uvula is mid-line, Oral mucosa is moist Cardiovascular: Regular Rate and Rhythm without murmur, gallop or rub. Respiratory: No accessory muscle use or respiratory distress. Lungs are clear to auscultation, no wheezing, rales or rhonchi Chest Wall: no tenderness Back: No midline thoracic or lumbar vertebral tenderness.No ecchymosis, or signs of trauma noted. No CVA tenderness Musculoskeletal: Right knee abrasion. Tenderness to palpation to the anterior knee. DP +2, to be +2, capillary refill is brisk. Distal neurovascularly intact, normal range of motion,no calf or popliteal tenderness, no lower extremity edema/swelling GI: Obese, Abdomen is soft, non-distended. Normal bowel sounds. No masses appreciated. No tenderness to palpation. No rebound, guarding, or rigidity noted. Neurological: A&O x4. No cranial nerve dysfunction observed. No truncal ataxia. Moves all extremities. Sensation intact. Psychiatric: Cooperative and interactive.flat affect. Constitutional Vital Signs, click to edit/add: Last Vital Signs Temp 97.9 F 03/01/23 04:38 Pulse 87 03/01/23 06:10 Resp 16 03/01/23 06:10 BP 101/62 03/01/23 06:01 Pulse Ox 94 L 03/01/23 06:10 O2 Del Method Room Air 03/01/23 04:38 Course Vital Signs Vital signs: Vital Signs Pulse Oximetry 99 03/01/23 04:37 Temperature 97.9 F 03/01/23 04:38 Pulse Rate 87 03/01/23 06:10 Respiratory Rate 16 03/01/23 06:10 Blood Pressure 101/62 03/01/23 06:01 Pulse Oximetry 94 L 03/01/23 06:10 Oxygen Delivery Method Room Air 03/01/23 04:38 Medical Decision Making MDM Narrative Medical decision making narrative: Patient was given 60 mg of Norflex, 4 mg of Zofran, and [address] scan of the brain is done and right knee x-ray is done and reports are pending The patient continued to complain of pain to her back, and knee area. She was given a tablet of Ultram 50 mg in the emergency department. The patient is able to sit up, and ambulate. Vertigo has completely resolved. The patient states she has antiemetics at home. The patient will be given a prescription for Antivert, and Ultram. She is signed out at the end of my shift to Dr. Cohn awaiting radiology results. Medical Records Medical records reviewed: Yes I reviewed the patient's medical records Medical records narrative: Previous visits medical records were reviewed and are part of the medical decision making. Discharge Plan Discharge Chief Complaint: Fall Clinical Impression: Back pain, Closed head injury, Vertigo, Contusion of knee, right Patient Disposition: Still a Patient Time of Disposition Decision: 06:40 Condition: Good Mode of Transportation: Private Vehicle Prescriptions / Home Meds: New tramadol 50 mg tablet 50 mg PO TID PRN (Reason: pain) 5 Days Qty: 10 0RF meclizine [Antivert] 50 mg tablet 50 mg PO BID PRN (Reason: dizziness) Qty: 20 0RF No Action ibuprofen 800 mg tablet 800 mg PO Q8H PRN (Reason: fever or pain) olanzapine 5 mg tablet 5 mg PO DAILY Rx Instructions: HS promethazine 25 mg tablet 25 mg PO DAILY PRN (Reason: nausea and vomiting) tramadol 50 mg tablet 50 mg PO Q6H PRN (Reason: pain) cephalexin 500 mg capsule 500 mg PO BID 7 Days Qty: 13 0RF hyoscyamine sulfate [Levsin/SL] 0.125 mg tablet, sublingual 0.125 mg PO Q6H PRN (Reason: abdominal pain) Qty: 20 0RF promethazine 25 mg tablet 25 mg PO Q6H PRN (Reason: nausea and vomiting) Qty: 30 0RF celecoxib 200 mg capsule 200 mg PO Q24H ergocalciferol (vitamin D2) 1,250 mcg (50,000 unit) capsule 1,250 mcg PO .weekly gabapentin 600 mg tablet 600 mg PO QID hydroxyzine pamoate 50 mg capsule 50 mg PO Q6H PRN (Reason: anxiety) insulin aspart U-100 [Novolog FlexPen U-100 Insulin] 100 unit/mL (3 mL) insulin pen 35 unit SUBCUT QID Patient Comments: plus sliding scale insulin degludec [Tresiba FlexTouch U-100] 100 unit/mL (3 mL) insulin pen 32 unit SUBCUT Q24H loratadine 10 mg tablet 10 mg PO Q24H metoprolol tartrate 25 mg tablet 50 mg PO Q12H omeprazole 20 mg capsule,delayed release(DR/EC) 20 mg PO DAILY rosuvastatin 20 mg tablet 20 mg PO BEDTIME Mounjaro 2.5 mg/0.5 mL pen injector 2.5 mg SUBCUT .weekly tizanidine 4 mg tablet 4 mg PO Q8H PRN (Reason: spasms) trazodone 100 mg tablet 200 mg PO BEDTIME venlafaxine 150 mg capsule,extended release 24hr 150 mg PO DAILY Instructions: Vertigo (ED), Head Injury (ED), Contusion in Adults (ED) Stand Alone Forms: Portal Instructions
--- NOTE | 2023-03-01 04:49 | CT_ITS ---
The [address] [address] Patient Name: GISEL PAT MRN: [id number] date: 1975 Sex: F Assigned Patient Location: ER Current Patient Location: ED.[facility] Accession/Order Number: [id number] Exam Date: 03/01/2023 05:18 Report Date: 03/01/2023 06:53 At the request of: JOHN HARRIS Procedure: CT head/brain wo con INDICATION: 47 years old; Female. Tripped and fell hitting head on metal bed frame. Now complaining of headache, blurred vision, nausea, and vomiting. TECHNIQUE: CT Head (ax/cor/sag reformats). Ionizing radiation dose reduced via iterative reconstruction/FBP blend and body size kV/mA adjustment. Comparison: None FINDINGS: POSTOPERATIVE CHANGES: None. BRAIN PARENCHYMA: No focal lesions. No mass effect. No midline shift or herniation. No intraparenchymal or extra-axial hemorrhage. Normal bazan/white differentiation. VENTRICLES/EXTRA-AXIAL SPACES: Normal for patient's age. SINUSES/MASTOIDS: The visualized sinuses are clear. The study does not include the entire paranasal sinuses. Mastoid air cells are clear. MSK: No displaced or depressed calvarial fracture is noted. OTHER: No hyperdense intraluminal thrombus is seen. CT/CT head/brain wo con IMPRESSION: 1. No acute intracranial abnormality. No hemorrhage or mass effect. This study cannot exclude the presence of a concussion type injury. Electronically authenticated by: GELY AVERY Date: 03/01/2023 06:53
--- NOTE | 2023-03-01 04:50 | XR_ITS ---
The [address] [address] Patient Name: GISEL PAT MRN: [id number] date: 1975 Sex: F Assigned Patient Location: ER Current Patient Location: ED.[facility] Accession/Order Number: [id number] Exam Date: 03/01/2023 05:15 Report Date: 03/01/2023 07:09 At the request of: JOHN HARRIS Procedure: XR knee RT 4V EXAM: XR knee RT 4V HISTORY: pain, fall COMPARISON: None. FINDINGS: 4 views of the right knee were obtained. No acute fracture or dislocation is identified. There is mild to moderate degenerative change in the patellofemoral compartment with joint space narrowing and spurring. There is also mild joint space narrowing and spurring in the medial compartment. No definite joint effusion is evident. There is no bony destruction or aggressive osseous lesion. XR/XR knee RT 4V IMPRESSION: 1. There is mild to moderate degenerative change in the patella femoral compartment mild degenerative change in the medial compartment. 2. No acute bony abnormality involving the right knee. Electronically authenticated by: JERRY LEE Date: 03/01/2023 07:09
[2023-03-01] MEDS: ORPHENADRINE 60 MG/ 2 ML VIAL IM (05:41)
[2023-03-01] MEDS: ONDANSETRON 4 MG RAPDIS TABLET SL (05:43)
[2023-03-01] MEDS: MECLIZINE HCL 12.5 MG TABLET 50 MG PO (05:43)
[2023-03-01] MEDS: TRAMADOL HCL 50 MG TABLET PO (07:29)
[2023-03-01] MEDS: PROMETHAZINE HCL 25 MG/ML VIAL IM (07:29)
== END 2023-03-01 07:34 | disposition home or self-care (01) ==
PROVIDERS: Emergency Provider Emergency Medicine
DX: R42 Dizziness and giddiness (principal); S80.01XA Contusion of right knee, initial encounter; M54.9 Dorsalgia, unspecified; S09.8XXA Other specified injuries of head, initial encounter; W18.09XA Striking against other object with subsequent fall, initial encounter; Z79.899 Other long term (current) drug therapy; Z79.4 Long term (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 of insulin
CPT/HCPCS: 70450; 73564; 96372; 99285

== ENCOUNTER 2023-03-23 21:35 | Emergency (ER) | payer OTHER, SELFPAY ==
[2023-03-23 21:40] VITALS: BP 142/77; PULSE 120; RESP 14; TEMP 37; O2SAT 96; BMI 42.1
[2023-03-23 21:59] VITALS: RESP 18
--- NOTE | 2023-03-23 22:03 | CT_ITS ---
[address] [address] Patient Name: GISEL PAT MRN: [id number] date: 1975 Sex: F Assigned Patient Location: ER Current Patient Location: ER Accession/Order Number: [id number] Exam Date: 03/23/2023 22:37 Report Date: 03/23/2023 23:30 At the request of: NOVA MARKER Procedure: CT abdomen pelvis wo con EXAM: CT abdomen pelvis wo con REASON FOR EXAM: Female, 47 years, kidney stone. TECHNIQUE: Computed tomography of the abdomen and pelvis is performed in the axial projection from the lung bases to the pubic symphysis. Sagittal and coronal reconstructed images are performed. Dose reduction techniques were achieved by using automated exposure control and/or adjustment of mA and/or KVP according to patient size and/or use of iterative reconstruction technique. Study was performed without IV contrast. Study was performed without oral contrast. COMPARISON: 02/23/2023 FINDINGS: Lung bases: There is atelectasis at both lung bases. There is no pleural effusion. The visualized portions of the heart are unremarkable. The lack of intravenous contrast slightly limits evaluation of the solid abdominal organs. Liver: The liver is normal. Gallbladder: The gallbladder has been removed. Spleen: The spleen is normal. Pancreas: The pancreas is normal. Adrenal glands: The adrenal glands are normal bilaterally. Right kidney: The kidney is normal in size. Nonobstructing punctate calculus in the superior pole is unchanged. Left kidney: The kidney is normal in size. No renal calculus or hydronephrosis. No ureteral calculus. Stomach: The stomach is normal. Small bowel: The small bowel is normal. Large bowel: There is a moderate amount of stool throughout the colon. There are a few scattered diverticula. No acute diverticulitis. Appendix: The appendix is visualized, and is normal. Aorta: The aorta is normal. IVC: The IVC is normal. Retroperitoneum: Normal retroperitoneum. Bladder: The bladder is normal. Pelvic organs: The uterus is absent, consistent with hysterectomy. Abdominal wall: Normal abdominal wall. Osseous structures: There are mild degenerative changes within the spine. CT/CT abdomen pelvis wo con IMPRESSION: No bowel obstruction or acute renal pathology. Punctate nonobstructing calculus in the right upper pole is unchanged. There is a moderate amount of stool throughout the colon. Mild diverticulosis, without acute diverticulitis. Additional nonacute findings, as described above. Electronically authenticated by: SANDI HERRERA Date: 03/23/2023 23:30
--- NOTE | 2023-03-23 22:03 | ECG_ITS ---
[facility] Test Date: 2023-03-23 Pat Name: GISEL PAT Department: Room: - Gender: Female Department Editor: : 1975 Requested By: Order Number: [id number] Reading MD: KIMMY JAIME Measurements Intervals [place] Rate: 118 P: 52 OK: 130 QRS: -5 QRSD: 88 T: 41 QT: 328 QTc: 398 Interpretive Statements 1120 Sinus tachycardia 8003 Consistent with pulmonary disease 8102 Low QRS voltage in chest leads 9150 abnormal ECG Compared to ECG 01/17/2023 23:52:57 Low QRS voltage now present Short OK interval no longer present Electronically Signed On 03-24-2023 7:08:25 EDT by KIMMY JAIME
[2023-03-23 22:11] VITALS: BP 112/83; BP 116/89; BP 130/55; PULSE 118; PULSE 119; PULSE 123
[2023-03-23 22:11] LABS: Basophils Absolute Auto 0.1 10^3/uL (0.0-0.1); Basophils Percent Auto 0.8 % (0.2-2.0); Eosinophils Absolute Auto 0.3 10^3/uL (0.0-0.7); Eosinophils Percent Auto 4.5 % (0.9-7.0); Hematocrit 39.2 % (36.0-48.0); Immature Granulocytes Abs Auto 0.02 10^3/uL (0.00-0.03); Immature Granulocytes Pct Auto 0.3 % (0.0-0.5); Lymphocytes Absolute Auto 2.3 10^3/uL (1.2-3.8); Lymphocytes Percent Auto 32.5 % (20.5-60.0); Mean Corpuscular HGB Conc 33.2 g/dL (29.9-35.2); Mean Corpuscular Hemoglobin 29.4 pg (26.7-34.0); Mean Corpuscular Volume 88.7 fL (81.0-99.0); Mean Platelet Volume 9.1 fL (9.5-13.5); Monocytes Absolute Auto 0.6 10^3/uL (0.3-0.8); Monocytes Percent Auto 8.1 % (1.7-12.0); Neutrophils Absolute Auto 3.9 10^3/uL (1.4-6.5); Neutrophils Percent Auto 53.8 % (43.0-75.0); Platelet Count 217 10^3/uL (150-450); Red Blood Count 4.42 10^6/uL (4.20-5.40); Red Cell Distribution Width 12.5 % (11.0-15.0); White Blood Count 7.2 10^3/uL (4.0-11.0)
--- NOTE | 2023-03-23 22:11 | ED_ITS ---
HPI - General Adult General Chief complaint: Urogenital-Female Stated complaint: DIZZINESS AND FLANK PAIN Time Seen by Provider: 03/23/23 21:53 History of Present Illness HPI narrative: This 47-year-old female with a history of kidney stones who is been seen in this emergency department recently for flank pain and found to have kidney stones on the left side as well as right side presents for evaluation of one day of left- sided flank pain with nausea. She states she thinks she is urinating blood but has not seen her urine. She has been nauseated but has not vomited. She states she is having some cramping in her abdomen. She also states that she feels dizzy. She was noted to have a pulse in the 120s at triage. She denies any chest pain or shortness of breath. She states she has not followed up with her urologist yet at [facility] because she had a fall with a head injury and had to be transferred to [facility] recently. She states she has taken her gabapentin and ibuprofen 800mg, despite the fact that NSAIDS are on her allergy list. Related Data Home Medications Medication Instructions Recorded Confirmed celecoxib 200 mg capsule 200 mg PO Q24H 12/30/22 02/19/23 ergocalciferol (vitamin D2) 1,250 1,250 mcg PO .weekly 12/30/22 02/19/23 mcg (50,000 unit) capsule gabapentin 600 mg tablet 600 mg PO QID 12/30/22 02/19/23 hydroxyzine pamoate 50 mg capsule 50 mg PO Q6H PRN anxiety 12/30/22 02/19/23 insulin aspart U-100 100 unit/mL 35 unit subcut QID 12/30/22 02/19/23 (3 mL) subcutaneous pen (Novolog FlexPen U-100 Insulin aspart) insulin degludec 100 unit/mL (3 32 unit subcut Q24H 12/30/22 02/19/23 mL) subcutaneous pen (Tresiba FlexTouch U-100 insulin) loratadine 10 mg tablet 10 mg PO Q24H 12/30/22 02/19/23 metoprolol tartrate 25 mg tablet 50 mg PO Q12H 12/30/22 02/19/23 omeprazole 20 mg capsule,delayed 20 mg PO DAILY 12/30/22 02/19/23 release rosuvastatin 20 mg tablet 20 mg PO BEDTIME 12/30/22 02/19/23 tirzepatide 2.5 mg/0.5 mL 2.5 mg subcut .weekly 12/30/22 02/19/23 subcutaneous pen injector (Marilee) tizanidine 4 mg tablet 4 mg PO Q8H PRN spasms 12/30/22 02/19/23 trazodone 100 mg tablet 200 mg PO BEDTIME 12/30/22 02/19/23 ibuprofen 800 mg tablet 800 mg PO Q8H PRN fever or pain 01/17/23 02/19/23 olanzapine 5 mg tablet 5 mg PO DAILY 01/17/23 02/19/23 promethazine 25 mg tablet 25 mg PO DAILY PRN nausea and 01/17/23 02/19/23 vomiting tramadol 50 mg tablet 50 mg PO Q6H PRN pain 01/17/23 02/19/23 venlafaxine 150 mg 150 mg PO DAILY 02/19/23 02/19/23 capsule,extended release 24 hr Previous Rx's Medication Instructions Recorded cephalexin 500 mg capsule 500 mg PO BID 7 days #13 caps 02/26/23 hyoscyamine sulfate 0.125 mg 0.125 mg PO Q6H PRN abdominal pain 02/26/23 sublingual tablet (Levsin/SL) #20 tabs promethazine 25 mg tablet 25 mg PO Q6H PRN nausea and 02/26/23 vomiting #30 tabs meclizine 50 mg tablet (Antivert) 50 mg PO BID PRN dizziness #20 tabs 03/01/23 tramadol 50 mg tablet 50 mg PO TID PRN pain 5 days #10 03/01/23 tabs Allergies Allergy/AdvReac Type Severity Reaction Status Date / Time melon Allergy Severe Anaphylaxis Verified 03/23/23 21:47 aspirin Allergy Unknown Verified 03/23/23 21:47 fentanyl Allergy Unknown Verified 03/23/23 21:47 ketorolac [From Toradol] Allergy Unknown Verified 03/23/23 21:47 meperidine [From Demerol] Allergy Unknown Verified 03/23/23 21:47 morphine Allergy Unknown Verified 03/23/23 21:47 nalbuphine [From Nubain] Allergy Unknown Verified 03/23/23 21:47 NSAIDS (Non-Steroidal Allergy Unknown Verified 03/23/23 21:47 Anti-Inflamma Penicillins Allergy Unknown Verified 03/23/23 21:47 Review of Systems ROS Status of ROS 10 or more systems reviewed and unremarkable except as noted in history and below [facility] PFS Social History Smoking status: Never smoker Exam Narrative Exam Narrative: Nurses note and vital signs reviewed and patient is not hypoxic. General: Obese, nontoxic female, she is tearful at times, no respiratory distress, no active vomiting Skin: Warm, dry, no pallor noted. There is no rash noted. Head: Normocephalic, atraumatic Eye: Normal conjunctiva, no drainage, EOMI. PERRL Ears, Nose, Mouth, and Throat: oral mucosa is moist. Cardiovascular: Regular Rate and Rhythm S1 and S2, no murmurs rubs or gallops appreciated Respiratory: lungs are clear with good air entry, there is no wheezing rhonchi or rales. Back: non-tender, no reproducible CVA tenderness GI: Obese, soft, no reproducible tenderness, normal BS Musculoskeletal: The patient has no evidence of calf tenderness, no pitting edema, symmetrical pulses noted bilaterally Neurological: A&O x4, normal speech Psychiatric: Cooperative, flat affect, tearful at times Constitutional Vital Signs, click to edit/add: Last Vital Signs Temp 98.6 F 03/23/23 21:40 Pulse 112 H 03/23/23 22:47 Resp 18 03/23/23 21:59 BP 130/55 03/23/23 22:11 Pulse Ox 94 L 03/23/23 22:47 Course Vital Signs Vital signs: Vital Signs Temperature 98.6 F 03/23/23 21:40 Pulse Rate 120 H 03/23/23 21:40 Respiratory Rate 14 03/23/23 21:40 Blood Pressure 142/77 H 03/23/23 21:40 Pulse Oximetry 96 03/23/23 21:40 Temperature 98.6 F 03/23/23 21:40 Pulse Rate 112 H 03/23/23 22:47 Respiratory Rate 18 03/23/23 21:59 Blood Pressure 130/55 03/23/23 22:11 Pulse Oximetry 94 L 03/23/23 22:47 Medical Decision Making MDM Narrative Medical decision making narrative: This 47-year-old female with a history of diabetes, obesity, kidney stones, Who has been seen several times in the recent past for left-sided kidney stones presents for evaluation of left-sided flank pain associated with nausea. She had not noticed any blood in her urine but thought she did have blood in her urine. The last time she was seen by me she had a left ureteral stone but had past to other small stones in the left kidney. She is on multiple medications including gabapentin and has multiple drug ALLERGIES and states the only medication that she can tolerate is Dilaudid. She also states that Zofran does not help with her nausea. Due to her complaint of acute onset of pain with nausea and history of kidney stones and IV was placed and she was given 1 mg of Dilaudid and Zofran as well as IV fluids. Routine labs are reviewed. She has a normal white count and hemoglobin. Urine does not show any sign of infection and is contaminated with squamous epithelial cells. Her electrolytes are normal. Glucose is 188. Troponin was ordered because she stated that she was feeling dizzy and her pulses in the 120s upon arrival and is normal. Her EKG is also normal. CT scan abdomen and pelvis shows a small stone in the superior portion of the right kidney but no left-sided kidney stones or ureteral stoness but it does show moderate amount of constipation. The results of the CT scan were discussed with her and she was given a copy to share with her urologist. After CT scan she requested Phenergan because the Zofran was not helping her nausea and was given a dose of Phenergan with control of her nausea. Her pulse is now in the low 100s after a liter of NS and she feels well enough to be discharged. She states that she had a friend drop her off and will return to pick her up. She will be discharged home with an Rx for colace. Medical Records Medical records narrative: [place] [address] CT Scan Report Signed Patient: GISEL PAT MR#: [id number] : 1975 Acct:[id number] Age/Sex: 47 / F ADM Date: 03/23/23 Loc: ER Attending Dr: Ordering Physician: Grace Servin Date of Service: 03/23/23 Procedure(s): CT abdomen pelvis wo con Accession Number(s): [id number] cc: Physician,Non-Staff MJessica~ [facility] [place] [address] Patient Name: GISEL PAT MRN: [id number] date: 1975 Sex: F Assigned Patient Location: ER Current Patient Location: ER Accession/Order Number: [id number] Exam Date: 03/23/2023 22:37 Report Date: 03/23/2023 23:30 At the request of: GRACE MARKER Procedure: CT abdomen pelvis wo con EXAM: CT abdomen pelvis wo con REASON FOR EXAM: Female, 47 years, kidney stone. TECHNIQUE: Computed tomography of the abdomen and pelvis is performed in the axial projection from the lung bases to the pubic symphysis. Sagittal and coronal reconstructed images are performed. Dose reduction techniques were achieved by using automated exposure control and/or adjustment of mA and/or KVP according to patient size and/or use of iterative reconstruction technique. Study was performed without IV contrast. Study was performed without oral contrast. COMPARISON: 02/23/2023 FINDINGS: Lung bases: There is atelectasis at both lung bases. There is no pleural effusion. The visualized portions of the heart are unremarkable. The lack of intravenous contrast slightly limits evaluation of the solid abdominal organs. Liver: The liver is normal. Gallbladder: The gallbladder has been removed. Spleen: The spleen is normal. Pancreas: The pancreas is normal. Adrenal glands: The adrenal glands are normal bilaterally. Right kidney: The kidney is normal in size. Nonobstructing punctate calculus in the superior pole is unchanged. Left kidney: The kidney is normal in size. No renal calculus or hydronephrosis. No ureteral calculus. Stomach: The stomach is normal. Small bowel: The small bowel is normal. Large bowel: There is a moderate amount of stool throughout the colon. There are a few scattered diverticula. No acute diverticulitis. Appendix: The appendix is visualized, and is normal. Aorta: The aorta is normal. IVC: The IVC is normal. Retroperitoneum: Normal retroperitoneum. Bladder: The bladder is normal. Pelvic organs: The uterus is absent, consistent with hysterectomy. Abdominal wall: Normal abdominal wall. Osseous structures: There are mild degenerative changes within the spine. CT/CT abdomen pelvis wo con IMPRESSION: No bowel obstruction or acute renal pathology. Punctate nonobstructing calculus in the right upper pole is unchanged. There is a moderate amount of stool throughout the colon. Mild diverticulosis, without acute diverticulitis. Additional nonacute findings, as described above. Lab Data Labs: Lab Results 03/23/23 03/23/23 Range/Units 22:00 22:35 WBC 7.2 (4.0-11.0) 10^3/uL RBC 4.42 (4.20-5.40) 10^6/uL Hgb 13.0 (12.0-16.0) g/dL Hct 39.2 (36.0-48.0) % MCV 88.7 (81.0-99.0) fL MCH 29.4 (26.7-34.0) pg MCHC 33.2 (29.9-35.2) g/dL RDW 12.5 (11.0-15.0) % Plt Count 217 (150-450) 10^3/uL MPV 9.1 L (9.5-13.5) fL Neut % (Auto) 53.8 (43.0-75.0) % Lymph % (Auto) 32.5 (20.5-60.0) % [place] % (Auto) 8.1 (1.7-12.0) % Eos % (Auto) 4.5 (0.9-7.0) % Baso % (Auto) 0.8 (0.2-2.0) % Neut # (Auto) 3.9 (1.4-6.5) 10^3/uL Lymph # (Auto) 2.3 (1.2-3.8) 10^3/uL [place] # (Auto) 0.6 (0.3-0.8) 10^3/uL Eos # (Auto) 0.3 (0.0-0.7) 10^3/uL Baso # (Auto) 0.1 (0.0-0.1) 10^3/uL Abs Immat Gran (auto) 0.02 (0.00-0.03) 10^3/uL Imm/Tot Granulo (auto) 0.3 (0.0-0.5) % Sodium 142 (136-145) mmol/L Potassium 3.6 (3.5-5.1) mmol/L Chloride 106 (98-107) mmol/L Carbon Dioxide 25.9 (21.0-32.0) mmol/L Anion Gap 13.7 BUN 24.0 H (7.0-18.0) mg/dL Creatinine 1.02 (0.55-1.02) mg/dL Est GFR ( Amer) >60 (>=60) Est GFR (Non-Af Amer) 58 L (>=60) BUN/Creatinine Ratio 23.5 Glucose 188 H (74-106) mg/dL Calcium 9.0 (8.5-10.1) mg/dL Total Bilirubin 0.2 (0.2-1.0) mg/dL AST 46 H (15-37) U/L ALT 44 (14-59) U/L Alkaline Phosphatase 96 (46-116) U/L Troponin I High Sens <4.0 L (4.0-51.3) pg/mL Total Protein 7.7 (6.4-8.2) g/dL Albumin 3.5 (3.4-5.0) g/dL Globulin 4.2 g/dL Albumin/Globulin Ratio 0.8 Urine Color Yellow (YELLOW) Urine Clarity Clear (CLEAR) Urine pH 5.5 (5.0-9.0) Ur Specific [place] >=1.030 A (1.005-1.025) Urine Protein Negative (NEG/TRACE) mg/dL Urine Glucose (UA) Negative (NEGATIVE) mg/dL Urine Ketones Negative (NEGATIVE) mg/dL Urine Occult Blood Negative (NEGATIVE) Urine Nitrite Negative (NEGATIVE) Urine Bilirubin Negative (NEGATIVE) Urine Urobilinogen 0.2 (0.2-1.0) EU/dL Ur Leukocyte Esterase Negative (NEGATIVE) Urine RBC 0-2 (0-2) #/HPF Urine WBC 2-5 A (NONE SEEN) #/HPF Ur Squamous Epith Cells Many A (NONE/RARE) #/LPF Urine Crystals None seen (None Seen) #/HPF Urine Bacteria Trace A (NONE SEEN) #/HPF Urine Casts None seen (NONE SEEN) #/LPF Urine Mucus None seen (NONE SEEN) Ur Culture Indicated? No ECG Data Attestation: I personally reviewed and interpreted this ECG as follows: (Sinus tachycardia at 118 beats per minute, and nonspecific ST changes, normal axis, no acute ST segment elevation or T-wave inversion) Discharge Plan Discharge Chief Complaint: Urogenital-Female Clinical Impression: Acute left flank pain, Constipation Patient Disposition: Home, Self-Care Time of Disposition Decision: 23:48 Condition: Good Prescriptions / Home Meds: No Action ibuprofen 800 mg tablet 800 mg PO Q8H PRN (Reason: fever or pain) olanzapine 5 mg tablet 5 mg PO DAILY Rx Instructions: HS promethazine 25 mg tablet 25 mg PO DAILY PRN (Reason: nausea and vomiting) tramadol 50 mg tablet 50 mg PO Q6H PRN (Reason: pain) cephalexin 500 mg capsule 500 mg PO BID 7 Days Qty: 13 0RF hyoscyamine sulfate [Levsin/SL] 0.125 mg tablet, sublingual 0.125 mg PO Q6H PRN (Reason: abdominal pain) Qty: 20 0RF promethazine 25 mg tablet 25 mg PO Q6H PRN (Reason: nausea and vomiting) Qty: 30 0RF celecoxib 200 mg capsule 200 mg PO Q24H ergocalciferol (vitamin D2) 1,250 mcg (50,000 unit) capsule 1,250 mcg PO .weekly gabapentin 600 mg tablet 600 mg PO QID hydroxyzine pamoate 50 mg capsule 50 mg PO Q6H PRN (Reason: anxiety) insulin aspart U-100 [Novolog FlexPen U-100 Insulin] 100 unit/mL (3 mL) insulin pen 35 unit SUBCUT QID Patient Comments: plus sliding scale insulin degludec [Tresiba FlexTouch U-100] 100 unit/mL (3 mL) insulin pen 32 unit SUBCUT Q24H loratadine 10 mg tablet 10 mg PO Q24H metoprolol tartrate 25 mg tablet 50 mg PO Q12H omeprazole 20 mg capsule,delayed release(DR/EC) 20 mg PO DAILY rosuvastatin 20 mg tablet 20 mg PO BEDTIME Mounjaro 2.5 mg/0.5 mL pen injector 2.5 mg SUBCUT .weekly tizanidine 4 mg tablet 4 mg PO Q8H PRN (Reason: spasms) trazodone 100 mg tablet 200 mg PO BEDTIME venlafaxine 150 mg capsule,extended release 24hr 150 mg PO DAILY tramadol 50 mg tablet 50 mg PO TID PRN (Reason: pain) 5 Days Qty: 10 0RF meclizine [Antivert] 50 mg tablet 50 mg PO BID PRN (Reason: dizziness) Qty: 20 0RF Instructions: Constipation (ED), High Fiber Diet (ED), Flank Pain (ED) Stand Alone Forms: Portal Instructions Referrals: Physician,Non-Staff, MD [Primary Care Provider] - 1 week
[2023-03-23 22:26] LABS: Alanine Aminotransferase 44 U/L (14-59); Albumin Globulin Ratio 0.8; Albumin Level 3.5 g/dL (3.4-5.0); Alkaline Phosphatase 96 U/L (46-116); Anion Gap 13.7; Aspartate Amino Transferase 46 U/L (15-37); BUN Creatinine Ratio 23.5; Bilirubin Total 0.2 mg/dL (0.2-1.0); Carbon Dioxide 25.9 mmol/L (21.0-32.0); Chloride 106 mmol/L (98-107); Estimated GFR (African America >60 (>=60); Estimated GFR (Non-African Ame 58 (>=60); Globulin 4.2 g/dL; Glucose 188 mg/dL (74-106); Potassium 3.6 mmol/L (3.5-5.1); Sodium 142 mmol/L (136-145); Total Protein 7.7 g/dL (6.4-8.2); Troponin I High Sensitivity <4.0 pg/mL (4.0-51.3)
[2023-03-23] MEDS: HYDROMORPHONE HCL 2 MG/ML VIAL 1 MG IV (22:28)
[2023-03-23] MEDS: 0.9 % SODIUM CHLORIDE 1,000 ML 1000 ML IV (22:28)
[2023-03-23 22:41] LABS: Bilirubin Urine NEGATIVE (NEGATIVE); Blood Urine NEGATIVE (NEGATIVE); Clarity Urine CLEAR (CLEAR); Color Urine YELLOW (YELLOW); Glucose Urine UA NEGATIVE (NEGATIVE); Ketones Urine NEGATIVE (NEGATIVE); Leukocyte Esterase Urine NEGATIVE (NEGATIVE); Nitrite Urine NEGATIVE (NEGATIVE); Protein Urine NEGATIVE (NEG/TRACE); Specific Gravity Urine >=1.030 (1.005-1.025); Urobilinogen Urine 0.2 EU/dL (0.2-1.0); pH Urine 5.5 (5.0-9.0)
[2023-03-23 22:47] VITALS: PULSE 112; O2SAT 94
[2023-03-23 22:47] LABS: Bacteria Urine TRACE #/HPF (NONE SEEN); RBC Urine 0-2 #/HPF (0-2)
[2023-03-23 22:48] LABS: Cast Seen? NONE SEEN #/LPF (NONE SEEN); Crystals Seen? None Seen #/HPF (None Seen); Mucus Urine NONE SEEN (NONE SEEN); Squamous Epithelial Cell Urine MANY #/LPF (NONE/RARE); Urine Culture Indicated NO
[2023-03-23] MEDS: PROMETHAZINE HCL 25 MG/ML VIAL IV (23:04)
[2023-03-23 23:59] VITALS: PULSE 110; RESP 16; O2SAT 95
--- NOTE | 2023-03-23 23:59 | PC.NURSE ---
IV removed by this RN
== END 2023-03-24 00:01 | disposition home or self-care (01) ==
PROVIDERS: Emergency Provider Emergency Medicine
DX: K59.00 Constipation, unspecified (principal); R10.9 Unspecified abdominal pain; E66.9 Obesity, unspecified; E11.9 Type 2 diabetes mellitus without complications; Z87.442 Personal history of urinary calculi; Z79.4 Long term (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 of insulin; Z79.899 Other long term (current) drug therapy; Z68.41 Body mass index [BMI] 40.0-44.9, adult
CPT/HCPCS: 36415; 74176; 80053; 81001; 84484; 85025; 93005; 96361; 96374; 96375; 99285; J1170

== ENCOUNTER 2023-03-28 19:23 | Emergency (ER) | payer OTHER, SELFPAY ==
[2023-03-28 19:25] VITALS: BP 150/84; PULSE 100; RESP 12; TEMP 36.5; O2SAT 95; BMI 42.1
--- NOTE | 2023-03-28 20:02 | ED_ITS ---
HPI - General Adult General Chief complaint: Urogenital-Female Stated complaint: flank pain Time Seen by Provider: 03/28/23 19:26 History of Present Illness HPI narrative: 47 year old female presents for left flank pain. She has had no trauma and states that she four days ago. Five days ago she was here and had a CAT scan that showed a single punctate stone in one kidney. at that time she had constipation and was prescribed Colace. No fever or right-sided pain. The pain is moderate to severe. Related Data Home Medications Medication Instructions Recorded Confirmed celecoxib 200 mg capsule 200 mg PO Q24H 12/30/22 03/28/23 gabapentin 600 mg tablet 600 mg PO Q8H 12/30/22 03/28/23 hydroxyzine pamoate 50 mg capsule 50 mg PO Q6H PRN anxiety 12/30/22 03/28/23 insulin aspart U-100 100 unit/mL 20 unit subcut TID 12/30/22 03/28/23 (3 mL) subcutaneous pen (Novolog FlexPen U-100 Insulin aspart) insulin degludec 100 unit/mL (3 32 unit subcut Q24H 12/30/22 03/28/23 mL) subcutaneous pen (Tresiba FlexTouch U-100 insulin) loratadine 10 mg tablet 10 mg PO Q24H 12/30/22 03/28/23 metoprolol tartrate 25 mg tablet 50 mg PO Q12H 12/30/22 03/28/23 omeprazole 20 mg capsule,delayed 20 mg PO DAILY 12/30/22 03/28/23 release rosuvastatin 20 mg tablet 20 mg PO BEDTIME 12/30/22 03/28/23 tirzepatide 2.5 mg/0.5 mL 2.5 mg subcut .weekly 12/30/22 03/28/23 subcutaneous pen injector (Marilee) tizanidine 4 mg tablet 4 mg PO Q8H PRN spasms 12/30/22 03/28/23 trazodone 100 mg tablet 200 mg PO BEDTIME 12/30/22 03/28/23 ibuprofen 800 mg tablet 800 mg PO Q8H PRN fever or pain 01/17/23 03/28/23 olanzapine 5 mg tablet 5 mg PO DAILY 01/17/23 03/28/23 venlafaxine 150 mg 150 mg PO DAILY 02/19/23 03/28/23 capsule,extended release 24 hr aripiprazole 10 mg tablet 10 mg PO QDAY 03/28/23 03/28/23 Previous Rx's Medication Instructions Recorded promethazine 25 mg tablet 25 mg PO Q6H PRN nausea and 02/26/23 vomiting #30 tabs meclizine 50 mg tablet (Antivert) 50 mg PO BID PRN dizziness #20 tabs 03/01/23 Allergies Allergy/AdvReac Type Severity Reaction Status Date / Time melon Allergy Severe Anaphylaxis Verified 03/28/23 19:28 aspirin Allergy Unknown Verified 03/28/23 19:28 fentanyl Allergy Unknown Verified 03/28/23 19:28 ketorolac [From Toradol] Allergy Unknown Verified 03/28/23 19:28 meperidine [From Demerol] Allergy Unknown Verified 03/28/23 19:28 morphine Allergy Unknown Verified 03/28/23 19:28 nalbuphine [From Nubain] Allergy Unknown Verified 03/28/23 19:28 NSAIDS (Non-Steroidal Allergy Unknown Verified 03/28/23 19:28 Anti-Inflamma Penicillins Allergy Unknown Verified 03/28/23 19:28 Review of Systems ROS Narrative A ten point review of systems is negative except as noted above. PFSH PFSH Social History Smoking status: Never smoker Exam Narrative Exam Narrative: Nurses note and vital signs reviewed and patient is not hypoxic. General: The patient appears well and in no apparent distress. Patient is resting comfortably on cart. Skin: Warm, dry, no pallor noted. There is no rash noted. Head: Normocephalic, atraumatic Eye: Normal conjunctiva, no drainage Ears, Nose, Mouth, and Throat: oral mucosa is moist. Nares patent. Mouth without vesicles. Ear canals patent. Tm's without Erythema Cardiovascular: Regular Rate and Rhythm Respiratory: Patient is in no distress, no accessory muscle use, lungs are clear to auscultation, no wheezing, rales or rhonchi Back: non-tender, no CVA tenderness bilaterally to percussion. there is no rash or abrasion on her back or flank area. GI: Normal bowel sounds, no tenderness to palpation, no masses appreciated. No rebound, guarding, or rigidity noted. Musculoskeletal: The patient has no evidence of calf tenderness, no pitting edema, symmetrical pulses noted bilaterally Neurological: A&O, normal speech Psychiatric: Cooperative Constitutional Vital Signs, click to edit/add: Last Vital Signs Temp 97.7 F 03/28/23 19:25 Pulse 100 H 03/28/23 19:25 Resp 12 03/28/23 19:25 BP 150/84 H 03/28/23 19:25 Pulse Ox 95 03/28/23 19:25 Course Vital Signs Vital signs: Vital Signs Temperature 97.7 F 03/28/23 19:25 Pulse Rate 100 H 03/28/23 19:25 Respiratory Rate 12 03/28/23 19:25 Blood Pressure 150/84 H 03/28/23 19:25 Pulse Oximetry 95 03/28/23 19:25 Temperature 97.7 F 03/28/23 19:25 Pulse Rate 100 H 03/28/23 19:25 Respiratory Rate 12 03/28/23 19:25 Blood Pressure 150/84 H 03/28/23 19:25 Pulse Oximetry 95 03/28/23 19:25 Medical Decision Making MDM Narrative Medical decision making narrative: The patient had had a CAT scan of her abdomen and pelvis five days ago which showed a single punctate stone in one of her kidneys. She is clearly not passing a kidney stone. I've explained this to her and she wanted to leave without completing her treatment. When the nurse went in to talk to her the patient told the nurse that she is suicidal and wanted to go to the psychiatric floor. Differential Diagnosis Differential Diagnosis: kidney stone, urinary tract infection, suicidal ideation Medical Records Medical records reviewed: Yes I reviewed the patient's medical records Lab Data Lab results reviewed: Yes I reviewed the patient's lab results Labs: Lab Results 03/28/23 03/28/23 Range/Units 20:21 21:05 WBC 7.3 (4.0-11.0) 10^3/uL RBC 4.70 (4.20-5.40) 10^6/uL Hgb 13.7 (12.0-16.0) g/dL Hct 41.1 (36.0-48.0) % MCV 87.4 (81.0-99.0) fL MCH 29.1 (26.7-34.0) pg MCHC 33.3 (29.9-35.2) g/dL RDW 12.2 (11.0-15.0) % Plt Count 207 (150-450) 10^3/uL MPV 9.0 L (9.5-13.5) fL Neut % (Auto) 62.0 (43.0-75.0) % Lymph % (Auto) 26.8 (20.5-60.0) % [place] % (Auto) 6.1 (1.7-12.0) % Eos % (Auto) 4.0 (0.9-7.0) % Baso % (Auto) 0.7 (0.2-2.0) % Neut # (Auto) 4.5 (1.4-6.5) 10^3/uL Lymph # (Auto) 2.0 (1.2-3.8) 10^3/uL [place] # (Auto) 0.4 (0.3-0.8) 10^3/uL Eos # (Auto) 0.3 (0.0-0.7) 10^3/uL Baso # (Auto) 0.1 (0.0-0.1) 10^3/uL Abs Immat Gran (auto) 0.03 (0.00-0.03) 10^3/uL Imm/Tot Granulo (auto) 0.4 (0.0-0.5) % Sodium 141 (136-145) mmol/L Potassium 4.0 (3.5-5.1) mmol/L Chloride 103 (98-107) mmol/L Carbon Dioxide 32.4 H (21.0-32.0) mmol/L Anion Gap 9.6 BUN 15.0 (7.0-18.0) mg/dL Creatinine 0.82 (0.55-1.02) mg/dL Est GFR ( Amer) >60 (>=60) Est GFR (Non-Af Amer) >60 (>=60) BUN/Creatinine Ratio 18.3 Glucose 171 H (74-106) mg/dL Calcium 9.4 (8.5-10.1) mg/dL Serum HCG, Qual Negative (NEGATIVE) Urine Color Yellow (YELLOW) Urine Clarity Clear (CLEAR) Urine pH 6.0 (5.0-9.0) Ur Specific [place] >=1.030 A (1.005-1.025) Urine Protein Negative (NEG/TRACE) mg/dL Urine Glucose (UA) Negative (NEGATIVE) mg/dL Urine Ketones Negative (NEGATIVE) mg/dL Urine Occult Blood Moderate A (NEGATIVE) Urine Nitrite Negative (NEGATIVE) Urine Bilirubin Negative (NEGATIVE) Urine Urobilinogen 0.2 (0.2-1.0) EU/dL Ur Leukocyte Esterase Negative (NEGATIVE) Urine RBC 0-2 (0-2) #/HPF Urine WBC 5-10 A (NONE SEEN) #/HPF Ur Squamous Epith Cells Moderate A (NONE/RARE) #/LPF Urine Crystals None seen (None Seen) #/HPF Urine Bacteria None seen (NONE SEEN) #/HPF Urine Casts Seen A (NONE SEEN) #/LPF Hyaline Casts Rare Urine Mucus None seen (NONE SEEN) Salicylates <2.8 (<=19.9) mg/dL Urine Opiates Screen Negative (NEGATIVE) Ur Buprenorphine Scrn Negative (NEGATIVE) Ur Oxycodone Screen Negative (NEGATIVE) Urine Methadone Screen Negative (NEGATIVE) Ur Propoxyphene Screen Negative (NEGATIVE) Acetaminophen <2.0 L (10.0-30.0) ug/mL Ur Barbiturates Screen Negative (NEGATIVE) U Tricyclic Antidepress Negative (NEGATIVE) Ur Phencyclidine Scrn Negative (NEGATIVE) Ur Amphetamines Screen Negative (NEGATIVE) U Methamphetamines Scrn Negative (NEGATIVE) U Benzodiazepines Scrn Positive A (NEGATIVE) Urine Cocaine Screen Negative (NEGATIVE) U Cannabinoids Screen Negative (NEGATIVE) Ethanol Quant <3 mg/dL ECG Data Attestation: I personally reviewed and interpreted this ECG as follows: (EKG on my interpretation shows sinus rhythm with a rate of 101.) Discharge Plan Discharge Chief Complaint: Urogenital-Female Clinical Impression: Suicide ideation Patient Disposition: [facility] Time of Disposition Decision: 23:50 Discharge Location: [facility] Condition: Good Mode of Transportation: EMS
--- NOTE | 2023-03-28 20:04 | ECG_ITS ---
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
[2023-03-28 20:20] VITALS: PULSE 102
[2023-03-28 20:50] LABS: Basophils Absolute Auto 0.1 10^3/uL (0.0-0.1); Basophils Percent Auto 0.7 % (0.2-2.0); Eosinophils Absolute Auto 0.3 10^3/uL (0.0-0.7); Hematocrit 41.1 % (36.0-48.0); Hemoglobin 13.7 g/dL (12.0-16.0); Immature Granulocytes Abs Auto 0.03 10^3/uL (0.00-0.03); Immature Granulocytes Pct Auto 0.4 % (0.0-0.5); Lymphocytes Percent Auto 26.8 % (20.5-60.0); Mean Corpuscular HGB Conc 33.3 g/dL (29.9-35.2); Mean Corpuscular Hemoglobin 29.1 pg (26.7-34.0); Mean Corpuscular Volume 87.4 fL (81.0-99.0); Monocytes Absolute Auto 0.4 10^3/uL (0.3-0.8); Monocytes Percent Auto 6.1 % (1.7-12.0); Neutrophils Absolute Auto 4.5 10^3/uL (1.4-6.5); Platelet Count 207 10^3/uL (150-450); Red Cell Distribution Width 12.2 % (11.0-15.0); White Blood Count 7.3 10^3/uL (4.0-11.0)
[2023-03-28 21:09] LABS: Anion Gap 9.6; BUN Creatinine Ratio 18.3; Calcium 9.4 mg/dL (8.5-10.1); Carbon Dioxide 32.4 mmol/L (21.0-32.0); Chloride 103 mmol/L (98-107); Estimated GFR (African America >60 (>=60); Estimated GFR (Non-African Ame >60 (>=60); Ethanol <3 mg/dL; Glucose 171 mg/dL (74-106); Sodium 141 mmol/L (136-145)
[2023-03-28 21:31] LABS: Bilirubin Urine NEGATIVE (NEGATIVE); Blood Urine MODERATE (NEGATIVE); Clarity Urine CLEAR (CLEAR); Color Urine YELLOW (YELLOW); Glucose Urine UA NEGATIVE (NEGATIVE); Ketones Urine NEGATIVE (NEGATIVE); Leukocyte Esterase Urine NEGATIVE (NEGATIVE); Nitrite Urine NEGATIVE (NEGATIVE); Protein Urine NEGATIVE (NEG/TRACE); Specific Gravity Urine >=1.030 (1.005-1.025); Urobilinogen Urine 0.2 EU/dL (0.2-1.0)
[2023-03-28 21:40] LABS: HCG Qualitative NEGATIVE (NEGATIVE)
[2023-03-28 21:44] LABS: Amphetamine Screen Urine NEGATIVE (NEGATIVE); Barbiturates Screen Urine NEGATIVE (NEGATIVE); Benzodiazepines Screen Urine POSITIVE (NEGATIVE); Buprenorphine Screen Urine NEGATIVE (NEGATIVE); Cannabinoid Screen Urine NEGATIVE (NEGATIVE); Cocaine Screen Urine NEGATIVE (NEGATIVE); Methadone Screen Urine NEGATIVE (NEGATIVE); Methamphetamines Screen Urine NEGATIVE (NEGATIVE); Opiate Screen Urine NEGATIVE (NEGATIVE); Oxycodone Screen Urine NEGATIVE (NEGATIVE); Phencyclidine Screen Urine NEGATIVE (NEGATIVE); Tricyclic Antidepressant Urine NEGATIVE (NEGATIVE)
[2023-03-28 21:51] LABS: Cast Seen? SEEN #/LPF (NONE SEEN); Squamous Epithelial Cell Urine MODERATE #/LPF (NONE/RARE)
[2023-03-28 21:52] LABS: Hyaline Casts Urine RARE
[2023-03-28 21:53] LABS: RBC Urine 0-2 #/HPF (0-2)
[2023-03-28 21:54] LABS: Bacteria Urine NONE SEEN #/HPF (NONE SEEN); Crystals Seen? None Seen #/HPF (None Seen); Mucus Urine NONE SEEN (NONE SEEN)
[2023-03-28 22:20] LABS: Acetaminophen <2.0 ug/mL (10.0-30.0); Salicylate <2.8 mg/dL (<=19.9)
[2023-03-29 00:45] VITALS: BP 128/86; PULSE 68
[2023-03-29 01:45] VITALS: BP 122/80; PULSE 60; RESP 16
== END 2023-03-29 03:35 ==
PROVIDERS: Emergency Provider Emergency Medicine
DX: R45.851 Suicidal ideations (principal); Z79.4 Long term (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 of insulin; Z79.899 Other long term (current) drug therapy; F32.A Depression, unspecified; R10.9 Unspecified abdominal pain
CPT/HCPCS: 36415; 80048; 80179; 80307; 80320; 80329; 81001; 84703; 85025; 93005; 99285

== ENCOUNTER 2023-04-27 15:03 | Emergency (ER) | payer OTHER, SELFPAY ==
[2023-04-27 15:06] VITALS: BP 138/92; PULSE 109; RESP 20; TEMP 36.8; O2SAT 97; BMI 42.3
--- NOTE | 2023-04-27 15:12 | XR_ITS ---
[address] [address] Patient Name: GISEL PAT MRN: [id number] date: 1975 Sex: F Assigned Patient Location: ER Current Patient Location: ER Accession/Order Number: [id number] Exam Date: 04/27/2023 16:34 Report Date: 04/27/2023 17:00 At the request of: MAHOGANY DE LA ROSA Procedure: XR abdomen 1V EXAM: XR abdomen 1V HISTORY: rlq pain COMPARISON: None. TECHNIQUE: 2 views FINDINGS: IMPRESSION: The bowel gas pattern is nonobstructed. No free intraperitoneal air. No visualized intra-abdominal calcification. Surgical clips within the right upper quadrant. No visualized acute osseous abnormality. Electronically authenticated by: RAMIRO SANDHU Date: 04/27/2023 17:00
[2023-04-27 15:33] LABS: Bilirubin Urine SMALL (NEGATIVE); Blood Urine LARGE (NEGATIVE); Clarity Urine CLEAR (CLEAR); Color Urine DK. YELLOW (YELLOW); Glucose Urine UA >=1000 mg/dL (NEGATIVE); Ketones Urine TRACE mg/dL (NEGATIVE); Leukocyte Esterase Urine NEGATIVE (NEGATIVE); Nitrite Urine NEGATIVE (NEGATIVE); Protein Urine 30 mg/dL (NEG/TRACE); Specific Gravity Urine >=1.030 (1.005-1.025); Urine Microscopic Indicated YES; pH Urine 5.5 (5.0-9.0)
[2023-04-27 15:41] LABS: RBC Urine 50-75 #/HPF (0-2)
[2023-04-27 15:42] LABS: Bacteria Urine TRACE #/HPF (NONE SEEN); Cast Seen? SEEN #/LPF (NONE SEEN); Crystals Seen? None Seen #/HPF (None Seen); Hyaline Casts Urine RARE; Mucus Urine TRACE (NONE SEEN); Squamous Epithelial Cell Urine MODERATE #/LPF (NONE/RARE)
[2023-04-27 15:43] LABS: Urine Culture Indicated NO
--- NOTE | 2023-04-27 15:57 | ED_ITS ---
HPI - General Adult General Chief complaint: Abdominal Pain Stated complaint: Flank Pain Time Seen by Provider: 04/27/23 15:12 Source: patient Mode of arrival: walk-in Limitations: no limitations History of Present Illness HPI narrative: Patient is a 47-year-old female who is presenting to the Emergency Room with chief complaint of right lower back pain radiating to the right flank, possible kidney stone. Patient says that she's had over 50 kidney stones in the past, she's had 2 lithotripsies into stents placed in the past. Patient is having some urinary dysuria, frequency, no urgency. Patient does not have her gallbladder, she does have her appendix. Patient does not have her uterus or ovaries. Patient has a urologist named Dr. Díaz in [place]. She recently moved back to the local area this summer. Patient has never seen a urologist locally to the [facility]. Patient states yesterday and today she been having nausea and vomiting, she not been able to keep any food or drink and yesterday or tod ay. Patient also been having intermittent pain. Patient has multiple drug ALLERGIES. Patient has an ALLERGY to Toradol, states it causes itching. She has an ALLERGY to morphine. Patient currently is not working, she is living with family. No other acute complaints. Patient is sitting up in the bed, looks uncomfortable and I walk into the room. Patient was dropped off by her mother to the Emergency Room. . All systems are negative except as noted/marked. All systems reviewed and otherwise negative. . Nurses note and vital signs reviewed and patient is not hypoxic. General: The patient appears well and in no apparent distress. Patient is resting comfortably on cart. Patient is not toxic, lethargic, or listless Skin: Warm, dry, no pallor noted. There is no rash noted. No petechiae, pur yuly. Head: Normocephalic, atraumatic Eye: Normal conjunctiva, no drainage, EOMI. PERRL Ears, Nose, Mouth, and Throat: oral mucosa is moist. Nares patent. Mouth without vesicles. Cardiovascular: Regular Rate and Rhythm, no murmur, gallop, rub Respiratory: Patient is in no distress, no accessory muscle use, lungs are clear to auscultation, no wheezing, rales or rhonchi Back: non-tender, No CT LS midline pain. Right CVA and right paraspinal lumbar soft tissue tenderness to palpation. No rash. GI: soft, Mother obese, mild to moderate right flank tenderness to palpation, moderate right CVA tenderness to palpation, no left CVA tenderness palpation. Mild right lower quadrant tenderness palpation, mild suprapubic tenderness to palpation.no tenderness to palpation, no masses appreciated. No rebound, guarding, or rigidity noted. No flank pain bilateral, No distention. Musculoskeletal: Patient has full range of motion of all of the extremities, no motor, sensory, or focal neurological deficits Neurological: A&O x3, normal speech Psychiatric: Cooperative Related Data Home Medications Medication Instructions Recorded Confirmed celecoxib 200 mg capsule 200 mg PO Q24H 12/30/22 03/28/23 gabapentin 600 mg tablet 600 mg PO Q8H 12/30/22 03/28/23 hydroxyzine pamoate 50 mg capsule 50 mg PO Q6H PRN anxiety 12/30/22 03/28/23 insulin aspart U-100 100 unit/mL 20 unit subcut TID 12/30/22 03/28/23 (3 mL) subcutaneous pen (Novolog FlexPen U-100 Insulin aspart) insulin degludec 100 unit/mL (3 32 unit subcut Q24H 12/30/22 03/28/23 mL) subcutaneous pen (Tresiba FlexTouch U-100 insulin) loratadine 10 mg tablet 10 mg PO Q24H 12/30/22 03/28/23 metoprolol tartrate 25 mg tablet 50 mg PO Q12H 12/30/22 03/28/23 omeprazole 20 mg capsule,delayed 20 mg PO DAILY 12/30/22 03/28/23 release rosuvastatin 20 mg tablet 20 mg PO BEDTIME 12/30/22 03/28/23 tirzepatide 2.5 mg/0.5 mL 2.5 mg subcut .weekly 12/30/22 03/28/23 subcutaneous pen injector (Marilee) tizanidine 4 mg tablet 4 mg PO Q8H PRN spasms 12/30/22 03/28/23 trazodone 100 mg tablet 200 mg PO BEDTIME 12/30/22 03/28/23 ibuprofen 800 mg tablet 800 mg PO Q8H PRN fever or pain 01/17/23 03/28/23 olanzapine 5 mg tablet 5 mg PO DAILY 01/17/23 03/28/23 venlafaxine 150 mg 150 mg PO DAILY 02/19/23 03/28/23 capsule,extended release 24 hr aripiprazole 10 mg tablet 10 mg PO QDAY 03/28/23 03/28/23 Previous Rx's Medication Instructions Recorded promethazine 25 mg tablet 25 mg PO Q6H PRN nausea and 02/26/23 vomiting #30 tabs meclizine 50 mg tablet (Antivert) 50 mg PO BID PRN dizziness #20 tabs 03/01/23 hydrocodone 5 mg-acetaminophen 325 1 tab PO Q4H PRN pain #10 tabs 04/27/23 mg tablet ondansetron 4 mg disintegrating 4 mg PO Q4H PRN nausea and 04/27/23 tablet vomiting 3 days #6 tabs tamsulosin 0.4 mg capsule (Flomax) 0.4 mg PO DAILY 7 days #7 caps 04/27/23 Allergies Allergy/AdvReac Type Severity Reaction Status Date / Time melon Allergy Severe Anaphylaxis Verified 03/28/23 19:28 aspirin Allergy Unknown Verified 03/28/23 19:28 fentanyl Allergy Unknown Verified 03/28/23 19:28 ketorolac [From Toradol] Allergy Unknown Verified 03/28/23 19:28 meperidine [From Demerol] Allergy Unknown Verified 03/28/23 19:28 morphine Allergy Unknown Verified 03/28/23 19:28 nalbuphine [From Nubain] Allergy Unknown Verified 03/28/23 19:28 NSAIDS (Non-Steroidal Allergy Unknown Verified 03/28/23 19:28 Anti-Inflamma Penicillins Allergy Unknown Verified 03/28/23 19:28 PFSH PFS Social History Smoking status: Never smoker Exam Constitutional Vital Signs, click to edit/add: Last Vital Signs Temp 98.2 F 04/27/23 15:06 Pulse 109 H 04/27/23 15:06 Resp 20 04/27/23 15:06 BP 138/92 H 04/27/23 15:06 Pulse Ox 97 04/27/23 15:06 O2 Del Method Room Air 04/27/23 15:06 Course Vital Signs Vital signs: Vital Signs Temperature 98.2 F 04/27/23 15:06 Pulse Rate 109 H 04/27/23 15:06 Respiratory Rate 20 04/27/23 15:06 Blood Pressure 138/92 H 04/27/23 15:06 Pulse Oximetry 97 04/27/23 15:06 Oxygen Delivery Method Room Air 04/27/23 15:06 Temperature 98.2 F 04/27/23 15:06 Pulse Rate 109 H 04/27/23 15:06 Respiratory Rate 20 04/27/23 15:06 Blood Pressure 138/92 H 04/27/23 15:06 Pulse Oximetry 97 04/27/23 15:06 Oxygen Delivery Method Room Air 04/27/23 15:06 Medical Decision Making MDM Narrative Medical decision making narrative: Patient has multiple drug ALLERGIES. Patient was given IV fluids, Zofran, and 1 dose of Dilaudid. Patient has had multiple CAT scans in the past as well. Patient will have x-ray done today along with basic lab work and urine. Patient has not been established with local urology, this will be referred. Patient x-ray shows no significant findings. Patient's urine shows blood, kidney function is slightly elevated. Patient was given 1 L of IV fluid. Patient has multiple drug ALLERGIES. Patient says that she is new to the area since the summer time, she will be referred to Dr. Adams. At discharge patient had asked for something in edition the pain. Patient was going to be given [place], and then patient told me that she was still nauseous and she vomited a few times all she been in the Emergency Room. This was just after she told me her nausea has improved and was better. Patient has no evidence of vomit in her basin at bedside. Patient said that she vomited yellowish emesis in the bathroom a few times in the Emergency Room. Speaking to Sarah RAUSCH, she saw the patient go to the bathroom once but was never told about any vomiting. Patient was asking for additional pain medication to the IV before she left. This was unusual, I told patient no indication for additional IV narcotics. Patient will be given another dose of Zofran and given oral narcotic because she's never told anybody about her vomiting nor has anybody seen it or heard it until she is ready to leave and asking for IV narcotics prior to discharge. Patient was sent home with Zofran, Flomax, [place]. Patient was referred to Dr. Adams. Patient was given urine strainers. Patient will return for intractable nausea, vomiting pain. Patient understands and agrees why an x-ray was done today because she's had multiple CAT scans in the past and she very well could've multiple CAT scans in the future for history kidney stones. No questions at discharge. Lab Data Lab results reviewed: Yes I reviewed the patient's lab results Labs: Lab Results 04/27/23 04/27/23 Range/Units 15:18 16:04 WBC 6.3 (4.0-11.0) 10^3/uL RBC 4.84 (4.20-5.40) 10^6/uL Hgb 14.1 (12.0-16.0) g/dL Hct 41.6 (36.0-48.0) % MCV 86.0 (81.0-99.0) fL MCH 29.1 (26.7-34.0) pg MCHC 33.9 (29.9-35.2) g/dL RDW 12.1 (11.0-15.0) % Plt Count 253 (150-450) 10^3/uL MPV 9.5 (9.5-13.5) fL Neut % (Auto) 54.6 (43.0-75.0) % Lymph % (Auto) 33.2 (20.5-60.0) % [place] % (Auto) 8.3 (1.7-12.0) % Eos % (Auto) 2.7 (0.9-7.0) % Baso % (Auto) 1.0 (0.2-2.0) % Neut # (Auto) 3.4 (1.4-6.5) 10^3/uL Lymph # (Auto) 2.1 (1.2-3.8) 10^3/uL [place] # (Auto) 0.5 (0.3-0.8) 10^3/uL Eos # (Auto) 0.2 (0.0-0.7) 10^3/uL Baso # (Auto) 0.1 (0.0-0.1) 10^3/uL Abs Immat Gran (auto) 0.01 (0.00-0.03) 10^3/uL Imm/Tot Granulo (auto) 0.2 (0.0-0.5) % Sodium 132 L (136-145) mmol/L Potassium 3.7 (3.5-5.1) mmol/L Chloride 96 L (98-107) mmol/L Carbon Dioxide 27.4 (21.0-32.0) mmol/L Anion Gap 12.3 BUN 21.0 H (7.0-18.0) mg/dL Creatinine 1.19 H (0.55-1.02) mg/dL Est GFR ( Amer) 59 L (>=60) Est GFR (Non-Af Amer) 49 L (>=60) BUN/Creatinine Ratio 17.6 Glucose 346 H (74-106) mg/dL Calcium 9.1 (8.5-10.1) mg/dL Total Bilirubin 0.5 (0.2-1.0) mg/dL AST 17 (15-37) U/L ALT 30 (14-59) U/L Alkaline Phosphatase 106 (46-116) U/L Total Protein 8.3 H (6.4-8.2) g/dL Albumin 3.8 (3.4-5.0) g/dL Globulin 4.5 g/dL Albumin/Globulin Ratio 0.8 Lipase 41.0 (16.0-77.0) U/L Urine Color Dk. yellow (YELLOW) Urine Clarity Clear (CLEAR) Urine pH 5.5 (5.0-9.0) Ur Specific [place] >=1.030 A (1.005-1.025) Urine Protein 30 A (NEG/TRACE) mg/dL Urine Glucose (UA) >=1000 A (NEGATIVE) mg/dL Urine Ketones Trace A (NEGATIVE) mg/dL Urine Occult Blood Large A (NEGATIVE) Urine Nitrite Negative (NEGATIVE) Urine Bilirubin Small A (NEGATIVE) Urine Urobilinogen 1.0 (0.2-1.0) EU/dL Ur Leukocyte Esterase Negative (NEGATIVE) Urine RBC 50-75 A (0-2) #/HPF Urine WBC 2-5 A (NONE SEEN) #/HPF Ur Squamous Epith Cells Moderate A (NONE/RARE) #/LPF Urine Crystals None seen (None Seen) #/HPF Urine Bacteria Trace A (NONE SEEN) #/HPF Urine Casts Seen A (NONE SEEN) #/LPF Hyaline Casts Rare Urine Mucus Trace A (NONE SEEN) Ur Culture Indicated? No Patient has moderate squamous epithelial cells in her urine along with red blood cells and blood. Patient has protein Along with sugar. Patient is diabetic. Discharge Plan Discharge Chief Complaint: Abdominal Pain Clinical Impression: Renal colic on right side, Nausea & vomiting, Hematuria, History of kidney stones Patient Disposition: Home, Self-Care Time of Disposition Decision: 17:20 Condition: Fair Prescriptions / Home Meds: New hydrocodone-acetaminophen 5-325 mg tablet 1 tab PO Q4H PRN (Reason: pain) Qty: 10 0RF tamsulosin [Flomax] 0.4 mg capsule 0.4 mg PO DAILY 7 Days Qty: 7 0RF ondansetron 4 mg tablet,disintegrating 4 mg PO Q4H PRN (Reason: nausea and vomiting) 3 Days Qty: 6 0RF No Action ibuprofen 800 mg tablet 800 mg PO Q8H PRN (Reason: fever or pain) olanzapine 5 mg tablet 5 mg PO DAILY Rx Instructions: HS promethazine 25 mg tablet 25 mg PO Q6H PRN (Reason: nausea and vomiting) Qty: 30 0RF aripiprazole 10 mg tablet 10 mg PO QDAY celecoxib 200 mg capsule 200 mg PO Q24H gabapentin 600 mg tablet 600 mg PO Q8H hydroxyzine pamoate 50 mg capsule 50 mg PO Q6H PRN (Reason: anxiety) insulin aspart U-100 [Novolog FlexPen U-100 Insulin] 100 unit/mL (3 mL) insulin pen 20 unit SUBCUT TID Patient Comments: plus sliding scale insulin degludec [Tresiba FlexTouch U-100] 100 unit/mL (3 mL) insulin pen 32 unit SUBCUT Q24H Hold Instructions: needs prior authorization loratadine 10 mg tablet 10 mg PO Q24H metoprolol tartrate 25 mg tablet 50 mg PO Q12H omeprazole 20 mg capsule,delayed release(DR/EC) 20 mg PO DAILY rosuvastatin 20 mg tablet 20 mg PO BEDTIME Mounjaro 2.5 mg/0.5 mL pen injector 2.5 mg SUBCUT .weekly tizanidine 4 mg tablet 4 mg PO Q8H PRN (Reason: spasms) trazodone 100 mg tablet 200 mg PO BEDTIME venlafaxine 150 mg capsule,extended release 24hr 150 mg PO DAILY meclizine [Antivert] 50 mg tablet 50 mg PO BID PRN (Reason: dizziness) Qty: 20 0RF Instructions: Kidney Stones (ED), Renal Colic (ED), Acute Nausea and Vomiting (DC) Additional Instructions: With your significant kidney stone history, he needs to see and establish local urology. Stand Alone Forms: Portal Instructions Referrals: Physician,Non-Staff, MD [Primary Care Provider] - 1 week Joseluis Adams MD [Physician] - 1 week Discharge Date/Time: 04/27/23 17:50
[2023-04-27] MEDS: HYDROMORPHONE HCL 2 MG/ML VIAL 1 MG IV (16:11)
[2023-04-27] MEDS: 0.9 % SODIUM CHLORIDE 1,000 ML 999 ML IV (16:11)
[2023-04-27] MEDS: ONDANSETRON PF 4 MG/2 ML VIAL IV ×2 (16:11→17:16)
[2023-04-27 16:26] LABS: Basophils Absolute Auto 0.1 10^3/uL (0.0-0.1); Eosinophils Absolute Auto 0.2 10^3/uL (0.0-0.7); Eosinophils Percent Auto 2.7 % (0.9-7.0); Hematocrit 41.6 % (36.0-48.0); Hemoglobin 14.1 g/dL (12.0-16.0); Immature Granulocytes Abs Auto 0.01 10^3/uL (0.00-0.03); Immature Granulocytes Pct Auto 0.2 % (0.0-0.5); Lymphocytes Absolute Auto 2.1 10^3/uL (1.2-3.8); Lymphocytes Percent Auto 33.2 % (20.5-60.0); Mean Corpuscular HGB Conc 33.9 g/dL (29.9-35.2); Mean Corpuscular Hemoglobin 29.1 pg (26.7-34.0); Mean Platelet Volume 9.5 fL (9.5-13.5); Monocytes Absolute Auto 0.5 10^3/uL (0.3-0.8); Monocytes Percent Auto 8.3 % (1.7-12.0); Neutrophils Absolute Auto 3.4 10^3/uL (1.4-6.5); Neutrophils Percent Auto 54.6 % (43.0-75.0); Platelet Count 253 10^3/uL (150-450); Red Blood Count 4.84 10^6/uL (4.20-5.40); Red Cell Distribution Width 12.1 % (11.0-15.0); White Blood Count 6.3 10^3/uL (4.0-11.0)
[2023-04-27 16:36] LABS: Alanine Aminotransferase 30 U/L (14-59); Albumin Globulin Ratio 0.8; Albumin Level 3.8 g/dL (3.4-5.0); Alkaline Phosphatase 106 U/L (46-116); Anion Gap 12.3; Aspartate Amino Transferase 17 U/L (15-37); BUN Creatinine Ratio 17.6; Bilirubin Total 0.5 mg/dL (0.2-1.0); Calcium 9.1 mg/dL (8.5-10.1); Carbon Dioxide 27.4 mmol/L (21.0-32.0); Chloride 96 mmol/L (98-107); Estimated GFR (African America 59 (>=60); Estimated GFR (Non-African Ame 49 (>=60); Globulin 4.5 g/dL; Glucose 346 mg/dL (74-106); Potassium 3.7 mmol/L (3.5-5.1); Sodium 132 mmol/L (136-145); Total Protein 8.3 g/dL (6.4-8.2)
[2023-04-27] MEDS: HYDROCODONE/ACET 5-325 MG TABLET 1 TAB PO (17:16)
== END 2023-04-27 17:50 | disposition home or self-care (01) ==
PROVIDERS: Emergency Provider Emergency Medicine
DX: R11.2 Nausea with vomiting, unspecified (principal); N23 Unspecified renal colic; R31.9 Hematuria, unspecified; Z87.442 Personal history of urinary calculi; Z79.899 Other long term (current) drug therapy; Z79.4 Long term (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 of insulin
CPT/HCPCS: 36415; 74018; 80053; 81001; 83690; 85025; 96374; 96375; 96376; 99285; J1170

== ENCOUNTER 2023-05-19 23:29 | Emergency (ER) | payer OTHER, SELFPAY ==
[2023-05-20] VITALS: BP 115/83; PULSE 99; RESP 16; TEMP 36.5; O2SAT 99; BMI 42.3
--- NOTE | 2023-05-20 00:49 | ED.ABDPAIN1 ---
HPI - Abdominal Pain General Chief Complaint: Abdominal Pain Stated Complaint: LT FLANK PAIN Time Seen by Provider: 05/20/23 00:36 Source: patient Mode of arrival: walk-in Limitations: no limitations History of Present Illness HPI narrative: patient states past history of kidney stones. States last stone September or october of this year. States pain started again today associated with nausea. No fever or dysuria, MD elicited complaint: Reports flank pain Related Data Home Medications Medication Instructions Recorded Confirmed celecoxib 200 mg capsule 200 mg PO Q24H 12/30/22 03/28/23 gabapentin 600 mg tablet 600 mg PO Q8H 12/30/22 03/28/23 hydroxyzine pamoate 50 mg capsule 50 mg PO Q6H PRN anxiety 12/30/22 03/28/23 insulin aspart U-100 100 unit/mL 20 unit subcut TID 12/30/22 03/28/23 (3 mL) subcutaneous pen (Novolog FlexPen U-100 Insulin aspart) insulin degludec 100 unit/mL (3 32 unit subcut Q24H 12/30/22 03/28/23 mL) subcutaneous pen (Tresiba FlexTouch U-100 insulin) loratadine 10 mg tablet 10 mg PO Q24H 12/30/22 03/28/23 metoprolol tartrate 25 mg tablet 50 mg PO Q12H 12/30/22 03/28/23 omeprazole 20 mg capsule,delayed 20 mg PO DAILY 12/30/22 03/28/23 release rosuvastatin 20 mg tablet 20 mg PO BEDTIME 12/30/22 03/28/23 tirzepatide 2.5 mg/0.5 mL 2.5 mg subcut .weekly 12/30/22 03/28/23 subcutaneous pen injector (Marilee) tizanidine 4 mg tablet 4 mg PO Q8H PRN spasms 12/30/22 03/28/23 trazodone 100 mg tablet 200 mg PO BEDTIME 12/30/22 03/28/23 ibuprofen 800 mg tablet 800 mg PO Q8H PRN fever or pain 01/17/23 03/28/23 olanzapine 5 mg tablet 5 mg PO DAILY 01/17/23 03/28/23 venlafaxine 150 mg 150 mg PO DAILY 02/19/23 03/28/23 capsule,extended release 24 hr aripiprazole 10 mg tablet 10 mg PO QDAY 03/28/23 03/28/23 Previous Rx's Medication Instructions Recorded promethazine 25 mg tablet 25 mg PO Q6H PRN nausea and 02/26/23 vomiting #30 tabs meclizine 50 mg tablet (Antivert) 50 mg PO BID PRN dizziness #20 tabs 03/01/23 hydrocodone 5 mg-acetaminophen 325 1 tab PO Q4H PRN pain #10 tabs 04/27/23 mg tablet ondansetron 4 mg disintegrating 4 mg PO Q4H PRN nausea and 04/27/23 tablet vomiting 3 days #6 tabs tamsulosin 0.4 mg capsule (Flomax) 0.4 mg PO DAILY 7 days #7 caps 04/27/23 Allergies Allergy/AdvReac Type Severity Reaction Status Date / Time melon Allergy Severe Anaphylaxis Verified 03/28/23 19:28 aspirin Allergy Unknown Verified 03/28/23 19:28 fentanyl Allergy Unknown Verified 03/28/23 19:28 ketorolac [From Toradol] Allergy Unknown Verified 03/28/23 19:28 meperidine [From Demerol] Allergy Unknown Verified 03/28/23 19:28 morphine Allergy Unknown Verified 03/28/23 19:28 nalbuphine [From Nubain] Allergy Unknown Verified 03/28/23 19:28 NSAIDS (Non-Steroidal Allergy Unknown Verified 03/28/23 19:28 Anti-Inflamma Penicillins Allergy Unknown Verified 03/28/23 19:28 Review of Systems ROS Status of ROS 10 or more systems reviewed and unremarkable except as noted in history and below [facility] Social History Smoking status: Never smoker Exam Constitutional Vital Signs, click to edit/add: Last Vital Signs Temp 97.7 F 05/20/23 00:00 Pulse 99 H 05/20/23 00:00 Resp 16 05/20/23 00:00 BP 115/83 05/20/23 00:00 Pulse Ox 99 05/20/23 00:00 O2 Del Method Room Air 05/20/23 00:00 Common normals: no apparent distress, oriented x3, no limitations, healthy appearing, alert and well nourished Eye Common normals: EOMs intact bilaterally and conjunctivae normal Chest Common normals: inspection of chest normal and palpation of chest normal Respiratory Common normals: normal respiratory effort, no retractions, no use of accessory muscles and clear to auscultation bilaterally Cardio Common normals: regular rate, regular rhythm, S1 normal heart sound and S2 normal heart sound GI Common normals: Normal to inspection, nondistended, normoactive bowel sounds present, soft to palpation and non-tender Other: mild left CVA tenderness Extremity Common normals: normal to inspection and full ROM Neuro Common normals: oriented x3, CN's II-XII intact bilaterally and moves all extremities Psych Appearance: grossly normal Course Vital Signs Vital signs: Vital Signs Temperature 97.7 F 05/20/23 00:00 Pulse Rate 99 H 05/20/23 00:00 Respiratory Rate 16 05/20/23 00:00 Blood Pressure 115/83 05/20/23 00:00 Pulse Oximetry 99 05/20/23 00:00 Oxygen Delivery Method Room Air 05/20/23 00:00 Temperature 97.7 F 05/20/23 00:00 Pulse Rate 99 H 05/20/23 00:00 Respiratory Rate 16 05/20/23 00:00 Blood Pressure 115/83 05/20/23 00:00 Pulse Oximetry 99 05/20/23 00:00 Oxygen Delivery Method Room Air 05/20/23 00:00 MDM - Abdominal Pain MDM Narrative Medical decision making narrative: patient presents complains of left flank pain concerned she may have a kidney stone. Does have microscopic hematuria. CT without evidence of an obstructing stone. Demonstrates constipation. Patient advised of the above and discharged home to follow up with Urology regarding her hematuria. States she does have laxatives at home Lab Data Labs: Lab Results 05/20/23 Range/Units 01:03 WBC 5.5 (4.0-11.0) 10^3/uL RBC 4.25 (4.20-5.40) 10^6/uL Hgb 12.0 (12.0-16.0) g/dL Hct 37.0 (36.0-48.0) % MCV 87.1 (81.0-99.0) fL MCH 28.2 (26.7-34.0) pg MCHC 32.4 (29.9-35.2) g/dL RDW 11.8 (11.0-15.0) % Plt Count 188 (150-450) 10^3/uL MPV 8.9 L (9.5-13.5) fL Neut % (Auto) 46.6 (43.0-75.0) % Lymph % (Auto) 36.3 (20.5-60.0) % [place] % (Auto) 9.4 (1.7-12.0) % Eos % (Auto) 6.2 (0.9-7.0) % Baso % (Auto) 1.1 (0.2-2.0) % Neut # (Auto) 2.6 (1.4-6.5) 10^3/uL Lymph # (Auto) 2.0 (1.2-3.8) 10^3/uL [place] # (Auto) 0.5 (0.3-0.8) 10^3/uL Eos # (Auto) 0.3 (0.0-0.7) 10^3/uL Baso # (Auto) 0.1 (0.0-0.1) 10^3/uL Abs Immat Gran (auto) 0.02 (0.00-0.03) 10^3/uL Imm/Tot Granulo (auto) 0.4 (0.0-0.5) % Sodium 136 (136-145) mmol/L Potassium 4.2 (3.5-5.1) mmol/L Chloride 101 (98-107) mmol/L Carbon Dioxide 30.9 (21.0-32.0) mmol/L Anion Gap 8.3 BUN 28.0 H (7.0-18.0) mg/dL Creatinine 0.92 (0.55-1.02) mg/dL Est GFR ( Amer) >60 (>=60) Est GFR (Non-Af Amer) >60 (>=60) BUN/Creatinine Ratio 30.4 Glucose 231 H (74-106) mg/dL Calcium 9.1 (8.5-10.1) mg/dL Urine Color Yellow (YELLOW) Urine Clarity Clear (CLEAR) Urine pH 5.5 (5.0-9.0) Ur Specific Tyro >=1.030 A (1.005-1.025) Urine Protein Negative (NEG/TRACE) mg/dL Urine Glucose (UA) 500 A (NEGATIVE) mg/dL Urine Ketones Trace A (NEGATIVE) mg/dL Urine Occult Blood Large A (NEGATIVE) Urine Nitrite Negative (NEGATIVE) Urine Bilirubin Negative (NEGATIVE) Urine Urobilinogen 0.2 (0.2-1.0) EU/dL Ur Leukocyte Esterase Negative (NEGATIVE) Urine RBC 10-20 A (0-2) #/HPF Urine WBC 2-5 A (NONE SEEN) #/HPF Ur Squamous Epith Cells Few A (NONE/RARE) #/LPF Urine Crystals None seen (None Seen) #/HPF Urine Bacteria Small A (NONE SEEN) #/HPF Urine Casts None seen (NONE SEEN) #/LPF Urine Mucus Small A (NONE SEEN) Ur Culture Indicated? Yes Imaging Data Abdominal x-ray: Radiologist's impression: Patient Name: GISEL PAT MRN: [facility]:[id number] date: 1975 Sex: F Assigned Patient Location: ER Current Patient Location: ER Accession/Order Number: [id number] Exam Date: 05/20/2023 01:15 Report Date: 05/20/2023 03:55 At the request of: HOMERO DE LA ROSA Procedure: CT abdomen pelvis wo con EXAM: CT abdomen pelvis wo con HISTORY: left flank pain COMPARISON: Multiple priors, most recent CT abdomen pelvis 03/23/2023 TECHNIQUE: Multiple axial views CT abdomen pelvis without IV contrast. Coronal sagittal reformats. FINDINGS: Visualized lung bases demonstrate mild bilateral lower lung linear atelectasis. Visualized cardiac apex is unremarkable. Small hiatal hernia. Stomach is underdistended. No perigastric stranding. Status post cholecystectomy. Liver, pancreas, spleen, adrenal glands, left kidney, underdistended urinary bladder, and appendix are unremarkable. Uterus is surgically absent. Other pelvic structures are unremarkable by noncontrast CT exam. A 3 mm nonobstructing right superior renal stone. Moderate amount of stool within the large bowel. Colonic diverticula. No evidence for small bowel obstruction, large ascites, or free air. No acute bony abnormality. CT/CT abdomen pelvis wo con IMPRESSION: A 3 mm nonobstructing right superior renal stone. No radiopaque left renal stone. No radiopaque ureteral or urinary bladder stone. No hydronephrosis or perinephric fluid collection. Colonic diverticula. Moderate amount of stool within the colon. Small hiatal hernia. Electronically authenticated by: NAREN NAJERA Date: 05/20/2023 03:55 Dictated By: Naren Najera M.D. Signed By: 05/20/238 DD/ 4 TD/TT: [employer]: Discharge Plan Discharge Chief Complaint: Abdominal Pain Clinical Impression: Hematuria, Constipation Prescriptions / Home Meds: No Action ibuprofen 800 mg tablet 800 mg PO Q8H PRN (Reason: fever or pain) olanzapine 5 mg tablet 5 mg PO DAILY Rx Instructions: HS promethazine 25 mg tablet 25 mg PO Q6H PRN (Reason: nausea and vomiting) Qty: 30 0RF aripiprazole 10 mg tablet 10 mg PO QDAY celecoxib 200 mg capsule 200 mg PO Q24H gabapentin 600 mg tablet 600 mg PO Q8H hydroxyzine pamoate 50 mg capsule 50 mg PO Q6H PRN (Reason: anxiety) insulin aspart U-100 [Novolog FlexPen U-100 Insulin] 100 unit/mL (3 mL) insulin pen 20 unit SUBCUT TID Patient Comments: plus sliding scale insulin degludec [Tresiba FlexTouch U-100] 100 unit/mL (3 mL) insulin pen 32 unit SUBCUT Q24H Hold Instructions: needs prior authorization loratadine 10 mg tablet 10 mg PO Q24H metoprolol tartrate 25 mg tablet 50 mg PO Q12H omeprazole 20 mg capsule,delayed release(DR/EC) 20 mg PO DAILY rosuvastatin 20 mg tablet 20 mg PO BEDTIME Mounjaro 2.5 mg/0.5 mL pen injector 2.5 mg SUBCUT .weekly tizanidine 4 mg tablet 4 mg PO Q8H PRN (Reason: spasms) trazodone 100 mg tablet 200 mg PO BEDTIME venlafaxine 150 mg capsule,extended release 24hr 150 mg PO DAILY meclizine [Antivert] 50 mg tablet 50 mg PO BID PRN (Reason: dizziness) Qty: 20 0RF hydrocodone-acetaminophen 5-325 mg tablet 1 tab PO Q4H PRN (Reason: pain) Qty: 10 0RF tamsulosin [Flomax] 0.4 mg capsule 0.4 mg PO DAILY 7 Days Qty: 7 0RF ondansetron 4 mg tablet,disintegrating 4 mg PO Q4H PRN (Reason: nausea and vomiting) 3 Days Qty: 6 0RF Instructions: Constipation (ED), Hematuria (ED) Additional Instructions: follow up with your Urologist later this week or next week Referrals: Physician,Non-Staff, MD [Primary Care Provider] - 1 week
--- NOTE | 2023-05-20 00:54 | CT_ITS ---
The [address] [address] Patient Name: GISEL PAT MRN: [id number] date: 1975 Sex: F Assigned Patient Location: ER Current Patient Location: ER Accession/Order Number: [id number] Exam Date: 05/20/2023 01:15 Report Date: 05/20/2023 03:55 At the request of: HOMERO DE LA ROSA Procedure: CT abdomen pelvis wo con EXAM: CT abdomen pelvis wo con HISTORY: left flank pain COMPARISON: Multiple priors, most recent CT abdomen pelvis 03/23/2023 TECHNIQUE: Multiple axial views CT abdomen pelvis without IV contrast. Coronal sagittal reformats. FINDINGS: Visualized lung bases demonstrate mild bilateral lower lung linear atelectasis. Visualized cardiac apex is unremarkable. Small hiatal hernia. Stomach is underdistended. No perigastric stranding. Status post cholecystectomy. Liver, pancreas, spleen, adrenal glands, left kidney, underdistended urinary bladder, and appendix are unremarkable. Uterus is surgically absent. Other pelvic structures are unremarkable by noncontrast CT exam. A 3 mm nonobstructing right superior renal stone. Moderate amount of stool within the large bowel. Colonic diverticula. No evidence for small bowel obstruction, large ascites, or free air. No acute bony abnormality. CT/CT abdomen pelvis wo con IMPRESSION: A 3 mm nonobstructing right superior renal stone. No radiopaque left renal stone. No radiopaque ureteral or urinary bladder stone. No hydronephrosis or perinephric fluid collection. Colonic diverticula. Moderate amount of stool within the colon. Small hiatal hernia. Electronically authenticated by: NAREN TSE Date: 05/20/2023 03:55
[2023-05-20 01:15] LABS: Basophils Absolute Auto 0.1 10^3/uL (0.0-0.1); Basophils Percent Auto 1.1 % (0.2-2.0); Eosinophils Absolute Auto 0.3 10^3/uL (0.0-0.7); Eosinophils Percent Auto 6.2 % (0.9-7.0); Immature Granulocytes Abs Auto 0.02 10^3/uL (0.00-0.03); Immature Granulocytes Pct Auto 0.4 % (0.0-0.5); Lymphocytes Percent Auto 36.3 % (20.5-60.0); Mean Corpuscular HGB Conc 32.4 g/dL (29.9-35.2); Mean Corpuscular Hemoglobin 28.2 pg (26.7-34.0); Mean Corpuscular Volume 87.1 fL (81.0-99.0); Mean Platelet Volume 8.9 fL (9.5-13.5); Monocytes Absolute Auto 0.5 10^3/uL (0.3-0.8); Monocytes Percent Auto 9.4 % (1.7-12.0); Neutrophils Absolute Auto 2.6 10^3/uL (1.4-6.5); Neutrophils Percent Auto 46.6 % (43.0-75.0); Platelet Count 188 10^3/uL (150-450); Red Blood Count 4.25 10^6/uL (4.20-5.40); Red Cell Distribution Width 11.8 % (11.0-15.0); White Blood Count 5.5 10^3/uL (4.0-11.0)
[2023-05-20 01:25] LABS: Anion Gap 8.3; BUN Creatinine Ratio 30.4; Calcium 9.1 mg/dL (8.5-10.1); Carbon Dioxide 30.9 mmol/L (21.0-32.0); Chloride 101 mmol/L (98-107); Estimated GFR (African America >60 (>=60); Estimated GFR (Non-African Ame >60 (>=60); Glucose 231 mg/dL (74-106); Potassium 4.2 mmol/L (3.5-5.1); Sodium 136 mmol/L (136-145)
[2023-05-20 01:48] LABS: Bilirubin Urine NEGATIVE (NEGATIVE); Blood Urine LARGE (NEGATIVE); Clarity Urine CLEAR (CLEAR); Color Urine YELLOW (YELLOW); Glucose Urine UA 500 mg/dL (NEGATIVE); Ketones Urine TRACE mg/dL (NEGATIVE); Leukocyte Esterase Urine NEGATIVE (NEGATIVE); Nitrite Urine NEGATIVE (NEGATIVE); Protein Urine NEGATIVE (NEG/TRACE); Specific Gravity Urine >=1.030 (1.005-1.025); Urobilinogen Urine 0.2 EU/dL (0.2-1.0); pH Urine 5.5 (5.0-9.0)
[2023-05-20 01:49] LABS: Urine Microscopic Indicated YES
[2023-05-20 01:56] LABS: Bacteria Urine SMALL #/HPF (NONE SEEN); Cast Seen? NONE SEEN #/LPF (NONE SEEN); Crystals Seen? None Seen #/HPF (None Seen); Mucus Urine SMALL (NONE SEEN); Squamous Epithelial Cell Urine FEW #/LPF (NONE/RARE); Urine Culture Indicated YES
[2023-05-20] MEDS: ONDANSETRON 4 MG RAPDIS TABLET SL (02:15)
== END 2023-05-20 04:41 | disposition home or self-care (01) ==
PROVIDERS: Emergency Provider Internal Medicine
DX: K59.00 Constipation, unspecified (principal); R31.9 Hematuria, unspecified; Z87.442 Personal history of urinary calculi; Z79.899 Other long term (current) drug therapy; Z79.4 Long term (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 of insulin
CPT/HCPCS: 36415; 74176; 80048; 81001; 85025; 87086; 87150; 87186; 99284

== ENCOUNTER 2023-07-19 14:27 | Emergency (ER) | payer OTHER, SELFPAY ==
[2023-07-19 14:46] VITALS: BP 118/66; PULSE 87; RESP 20; TEMP 36.8; O2SAT 99; BMI 39.2
--- NOTE | 2023-07-19 14:51 | PC.NURSE ---
Patient reports left flank pain since yesterday and burning with urination.
--- OUTSIDE RECORDS SUMMARY | 2023-07-19 14:59 | XMS_ITS | CCD ---
Author Name Unknown Address [address] [place] [address] Organization [facility] Care Team Providers Care Bell Maker Name Role Phone JONES, SKYE Primary Care Unavailable KARI SINGH Attending Unavailable JONES, SKYE Primary Care Unavailable GRACIELA HUNTER Attending Unavailable CRISTI YUSUF Attending Unavailable JONES, SKYE Primary Care Unavailable Jones, Skye E Primary Care Provider [phone] Jones, Skye E Primary Care Provider Jone Meyers Unavailable Unavailable Jones, Skye E Unavailable Unavailable None, No PCP Unavailable Unavailable Champ Varela Unavailable Unavailable System, Provider Not In Primary Care Provider Un available No, Physician Primary Care Provider Unavailabl e Unavailable Primary Care Provider Unavailabl e No, Physician Primary Care Provider Unavailabl e Required, No Pcp Unavailable Unavailable Debbie Gonzalez I Unavailable Unavailable Jones, Skye E Primary Care Provider [phone] Esmer Hanks MD Unavailable Unavailable Primary Care Provider Unavailabl e Dennis Aceves Unavailable SHAYNA GERARDO Attending Unavailable SHAYNA GERARDO Primary Care Unavailable SHAYNA GERARDO Admitting Unavailable No, Physician Primary Care Provider Unavailabl e TIM ROEPR Attending Unavailable NO, PHYSICIAN Primary Care Unavailable STEVEN LAWRENCE Attending Unavailable NO, PHYSICIAN Primary Care Unavailable Rickey Castle Unavailable Unavailable ISIDRA NJ MD Attending Unava ilable NONE, NONE Primary Care Unavailable NATALEE FACTORY EXPERT, RITU Consulting Unavailable ISIDRA NJ MD Admitting Unava ilable NONE, NONE Consulting Unavailable ISIDRA NJ MD Attending Unava ilable Elroy STEEL Consulting Unavailable ISIDRA NJ MD Admitting Unava ilable NONE, NONE Primary Care Unavailable CANDACE YOUNG Consulting Unavailable NONE, NONE Consulting Unavailable ISIDRA NJ MD Admitting Unava ilable NONE, NONE Primary Care Unavailable YANG HATCH, QUINCY CHANG Consulting Unavaila ble ISIDRA NJ MD Attending Unava ilable ISIDRA NJ MD Consulting Unava ilable NONE, NONE Consulting Unavailable ISIDRA NJ MD Attending Unava ilable Raul [phone], Juarez [phone] Consul ting Unavailable NONE, NONE Primary Care Unavailable ISIDRA NJ MD Admitting Unava ilable HEYDI IRVIN APRN Consulting Unavaila ble NONE, NONE Consulting Unavailable YANG HATCH, QUINCY CHANG Consulting Unavaila ble NONE, NONE Primary Care Unavailable WOOD DO, SHORTY A Admitting Unavailable WOOD DO, SHORTY A Attending Unavailable Conrad [phone], Sandi [phone] C onsulting Unavailable NONE, NONE Consulting Unavailable Skye Leroy APRN, CNP Primary Care Provider Skye Leroy APRN, CNP Primary Care Provider DR ESMER CARPENTER Consulting Unavailable [facility] Lee Primary Care Unavailable SHAIKH EASTMAN Admitting Unavailable SHAIKH EASTMAN Attending Unavailable DR JONE CAMPOS Consulting Unavailable MIMI EASTMANIKH Consulting Unavailable Gaby Pfeiffer Consulting Unavailable Skye Jones CNP Primary Care Provider PEE Jones Primary Care Provider MD Vivek Ceballos Jr Emergency Provider HOLDEN Pyle Emergency Provider SKYE JONES Primary Care Unavailable ESMER ROGERS Attending Unavailable NO, PHYSICIAN Primary Care Unavailable LUIS ANTONIO LORENZANA Attending Unavailab ROSHAN Casper Attending Unava ilable NO, PHYSICIAN Primary Care Unavailable CAROLINE HATCH Attending Unavaila TODD Chandler Primary Care Unavailable PEE Jones E Primary Care Provider [phone] DO Gurwinder Philippe Emergency Provider SKYE Kraus Primary Care Physician [phone] Cassandra Claros Unavailable PEE Jones Primary Care Provider DO Yehuda Louis Emergency Provider [phone] MD Vivek Ceballos Jr Emergency Provider Grace Alfonso Unavailable Unavailable DO Joseluis Vega Emergency Provider NO, PHYSICIAN Primary Care Unavailable KARI SINGH Admitting Unavailable KARI SINGH Attending Unavailable AJMEEL CADENA Attending Unavailable JONES, SKYE E Primary Care Unavailable ROSHAN ESPINO Admitting Unavailab TODD Pop Primary Care Unavailable PITCAIRN ISLANDER, GELACIO HALL Attending Unavailable JONES, SKYE E Primary Care Unavailable TUNDE PONCE Attending Unavailable JONES, SKYE E Primary Care Unavailable PITCAIRN ISLANDER, GELACIO HALL Attending Unavailable JONES, SKYE E Primary Care Unavailable CLARA PEREZ Attending Unavail able NO, PHYSICIAN Primary Care Unavailable SCHUYLER CADENA Attending Unavailable Karen, CERTIFIED PROSTHETIST VICE PRESIDENT Skye E Primary Care Provider DO Gurwinder Philippe Emergency Provider UnaDO Yehuda Arguello Emergency Provider [phone] MD Vivek Ceballos Jr Emergency Provider DO Joseluis Vega Emergency Provider DO Tristan Pyle Emergency Provider [phone] Ms. Skye Jones Primary Care Unav ailDO Omi Barkley Attending Provider DO Tim Feng Emergency Provider [phone] PEE Jones Primary Care Provider [phone] DO Omi Watkins Attending Provider Skye Leroy APRN, CNP Primary Care Provider Skye Jones Unavailable Sena Ding Unavailable Unavailelin e PEE Jones Primary Care Provider DO Yehuda Louis Emergency Provider [phone] DO Omi Watkins Attending Provider [phone] MD Vivek Ceballos Jr Emergency Provider Karen, Ms. Skye Alexandra Primary Care Unav ailable ALBINO Ding Attending Lesley radha Jones, Ms. Skye Alexandra Primary Care Unav ailable DO SANDI GATICA Attending Unavailable DO Omi Watkins Attending Provider [phone] DO Gurwinder Philippe Emergency Provider DO Omi Sorto Attending Provider PEE Jones Primary Care Provider DO Tim Feng Emergency Provider DO Yehuda Louis Emergency Provider Unavailab MD Vivek Villalba Jr Emergency Provider DO Gurwinder Philippe Emergency Provider DO Omi Sorto Attending Provider DO Tristan Pyle Emergency Provider [phone] HOLDEN West Emergency Provider [phone] PEE Jones Primary Care Provider MD Vivek Ceballos Jr Emergency Provider DO Gurwinder Philippe Emergency Provider DO Omi Sorto Attending Provider DO Tristan Pyle Emergency Provider HOLDEN West Emergency Provider MD Gely Sprague Emergency Provider [phone] OMI HUNTLEY Attending UnavailSKYE Medina Primary Care Unavailable Carol, [facility]- T[facility] E Emergency Provider Bridgett Juares Unavailable Unavailable Jones, CERTIFIED PROSTHETIST VICE PRESIDENT Skye E Primary Care Provider DO Gurwinder Philippe M Emergency Provider LesleyPEE Weathers Emergency Provider DO Joseluis Vega M Emergency Provider [phone] PEE Jones E Primary Care Provider PEE Jones E Primary Care Provider MD Damian Carpenter Emergency Provider MD Yves Dukes Admit Provider MD Yves Dukes Attending Provider SHALOM Arnold Other Provider Unavailable SHALOM Zaman Other Provider Unavailable SHALOM Del Cid Other Provider Unavailable SHALOM Sparrow Other Provider Unavailable SHALOM Flores Other Provider Unavailable SHALOM Cuenca Other Provider Unavailable MD Augusto Batista Other Provider MD Schuyler Fernandez Other Provider PEE Camara M Other Provider DO Beto Zuniga Other Provider MD Felipe Mayes Other Provider DO Rocky Uribe Other Provider [phone] MD Joe Burr Other Provider [phone] MD Ivonne Acosta Other Provider Brandon ANP-BC eBrtha Other Provider MD Nora Ocampo Other Provider MD Tariq Locke Other Provider MD Silva Villafana Other Provider MD Rehan Maxwell Other Provider DO Gely Chapman Other Provider MD Jessica Saavedra Other Provider MD Sandor Ramos Other Provider ELSIE WellsC Juana Greene Other Provider MD Miko العلي Other Provider MD Law Melnedez Other Provider MD Salvatore Peñaloza Other Provider DO Kristi Craig Other Provider DO Vikash Garcia Other Provider DO Moises Mendoza Other Provider PEE Petty Other Provider DO Julio C Rajput Other Provider MD Hilaria Escobar Other Provider [phone] PEE Carpenter Other Provider [phone] PEE Guerrero Other Provider MD Evy Brady Other Provider SHALOM Cazares Other Provider Unavailable PEE Jones E Primary Care Provider [facility] Tari E Emergency Provider [phone] PEE Lowry Emergency Provider [phone] DO Joseluis Vega Emergency Provider [phone] MD Damian Carpenter Emergency Provider SHALOM Arnold Other Provider Unavailable SHALOM Zaman Other Provider Unavailable SHALOM Del Cid Other Provider Unavailable SHALOM Sparrow Other Provider Unavailable SHALOM Flores Other Provider Unavailable SHALOM Cuenca Other Provider Unavailable MD Augusto Batista Other Provider MD Schuyler Fernandez Other Provider Unavailable PEE Camara Anamaria Jered Other Provider [phone] DO Beto Zuniga Other Provider MD Felipe Mayes Other Provider DO Rocky Uribe Other Provider MD Joe Burr Other Provider MD Ivonne Acosta Other Provider Brandon, ANP-BC Bertha Other Provider MD Nora Ocampo Other Provider MD Tariq Locke Other Provider MD Silva Villafana Other Provider MD eRhan Maxwell Other Provider DO Gely Chpaman Other Provider [phone] MD Jessica Saavedra Other Provider MD Sandor Ramos Other Provider ANEL Wells-C Juana Greene Other Provider [phone] MD Miko العلي Other Provider MD Law Melendez Other Provider MD Salvatore Peñaloza Other Provider DO Kristi Craig Other Provider DO Vikash Garcia Other Provider DO Moises Mendoza Other Provider PEE Petty Other Provider DO Julio C Rajput Other Provider MD Hilaria Escobar Other Provider PEE Carpenter Other Provider PEE Guerrero Other Provider [phone] MD Evy Brady Other Provider Debora, RN Krystyna Other Provider Unavailable MD Maxim Pinto Attending Provider MD Yves Dukes Admit Provider MD Yves Dukes Attending Provider MD Maxim Pinto Admit Provider MD Omi Watkins Attending Provider MD Deacon Corrales Other Provider MD Fei [place] Other Provider [phone] PEE Jones E Primary Care Provider MD Vivek Ceballos Jr Emergency Provider Monica Ordaz Unavailable SKYE JONES E Primary Care Unavailable ASUNCION URIBE Attending Unavailab SKYE Murray E Primary Care Unavailable EVERETT FRANK Attending Unavailable PEE Jones E Primary Care Provider [phone] MD Omi Watkins Attending Provider MD Braulio Dukes Admit Provider MD Maxim Pinto Attending Provider [phone] Sybil Muhammad Attending Unavailable Debbie Doyle Attending Unavailable Indy, Grey S. Attending Unavailable Indy, Grey S. Attending Unavailable Hajdari, Astrit H Attending Unavailable Indy, Grey S. Attending Unavailable Hajdari, Astrit H Attending Unavailable Indy, Grey S. Attending Unavailable Indy, Grey S. Attending Unavailable Indy, Grey S. Attending Unavailable Hajdari, Astrit H Attending Unavailable Indy, Grey S. Attending Unavailable Indy, Grey S. Attending Unavailable Karen GLASGOW - Skye NEIL E Primary Care Provider PEE Jones E Primary Care Provider [phone] MD Daphnie Gudino Emergency Provider Karen GLASGOW - JOLYNN Skye E Primary Care Provider RUBEN ABDI Referring Unavailable JONES, SKYE E Primary Care Unavailable RUBEN ABDI R Attending Unavailable BORSERUBEN TALBERT R Referring Unavailable JONES, SKYE E Primary Care Unavailable JONES, SKYE E Primary Care Unavailable JONES, SKYE E Primary Care Unavailable JONES, SKYE E Primary Care Unavailable JONES, SKYE E Primary Care Unavailable JONES, SKYE E Primary Care Unavailable RICKEY DAVIS Attending Unavailable JONES, SKYE E Primary Care Unavailable YOLY BRO Admitting Unavailable YOLY BRO Attending Unavailable ANDREW WASHINGTON Consulting Unavailable DAPHNIE GUDINO Referring Unavailable ALEXA SIMS Consulting Unavailable RUBEN ABDI R Attending Unavailable JONES, SKYE E Primary Care Unavailable JESUS MIX Consulting Unavailable RUBEN ABDI R Admitting Unavailable TRENT VELASQUEZ Consulting Unavailable JONES, SKYE E Primary Care Unavailable JONES, SKYE E Referring Unavailable Jones, Skye E Primary Care Unavailable Omi Watkins Attending Unavailable Omi Watkins Admitting Unavailable Jones, Skye E Primary Care Unavailable Omi Watkins Attending Unavailable Omi Watkins Admitting Unavailable Tristan Pyle Attending Unavailable Jones, Skye E Primary Care Unavailable Tristan Pyle Admitting Unavailable Maxim Pinto Attending Unavailable Roseline, Braulio Admitting Unavailab le Jones, Skye E Primary Care Unavailable Giacomo West Attending Unavailable Jones, Skye E Primary Care Unavailable Giacomo West Admitting Unavailable Maxim Pinto Attending Unavailable Roseline, Braulio Admitting Unavailab le Jones, Skye E Primary Care Unavailable Maxim Pinto Attending Unavailable Jones, Skye E Primary Care Unavailable Marylou Arnold Consulting Unavailable Roseline, Braulio Admitting Unavailab Chuyita Tolentino Consulting Unavailable Genna Del Cid Consulting Unavailable Deneen Sparrow Consulting Unavailable Keren Flores Consulting Unavailable Yulissa Cuenca Consulting Unavailable Augusto Batista Consulting Unavailable Anamaria Camara Consulting Unavailable Beto Zuniga Consulting Unavailable Felipe Mayes Consulting Unavailable Rocky Uribe Consulting UnavailJoe Schwartz Consulting Unavailable Ivonne Acosta Consulting Unavailable Bertha Vanessa Consulting UnavailNora Whitaker Consulting Unavailable Tariq Locke Consulting Unavailable Silva Villafana Consulting Unavailable Rehan Maxwell Consulting Unavailable Gely Chapman Consulting Unavailable Jessica Saavedra Consulting Unavailable Sandor Ramos Consulting Unavailable Juana Wells Consulting Unavailable Miko العلي Consulting Unavailab Law Davis Consulting Unavailable Deacon Corrales Consulting Unavailable Salvatore Peñaloza Consulting Unavailable Kristi Craig Consulting Unavailable Vikash Garcia Consulting Unavailable Moises Mendoza Consulting Unavailable Lindsey Petty Consulting Unavailable Julio C Rajput Consulting Unavailable Hilaria Escobar Consulting Unavailable Carie Carpenter Consulting Unavailable Gisel Guerrero Consulting Unavailable Evy Brady Consulting Unavailable Fei [place] Consulting Unavailable Krystyna Cazares Consulting Unavailable Karen, Skye E Primary Care Unavailable Gurwinder Philippe Attending Unavailable Gurwinder Philippe Admitting Unavailable Jones, Skye E Primary Care Unavailable Vivek Ceballos Jr Attending Unavailable Vivek Ceballos Jr Admitting Unavailable Jones, Skye E Primary Care Unavailable Joseluis Vega Attending Unavailable Joseluis Vega Admitting Unavailable Jones, Skye E Primary Care Unavailable Joseluis Vega Attending Unavailable Joseluis Vega Admitting Unavailable Eileen Lowry Attending Unavailable Jones, Skye E Primary Care Unavailable Eileen Lowry Admitting Unavailable Jones, Skye E Primary Care Unavailable Tari Medina Attending Unavailable Tari Medina Admitting Unavailable Jones, Skye E Primary Care Unavailable Daphnie Gudino Attending Unavailable Daphnie Gudino Admitting Unavailable Jones, Skye E Primary Care Unavailable Gely Sprague Attending Unavailable Gely Sprague Admitting Unavailable Maxim Pinto Admitting Unavailable Jones, Skye E Primary Care Unavailable Maxim Pinto Attending Unavailable Braulio Dukes Admitting Unavailab Braulio Fenton Attending Unavailab le Jones, Skye E Primary Care Unavailable Jones, Skye E Primary Care Unavailable Gurwinder Philippe Admitting Unavailable Gurwinder Philippe Attending Unavailable Roseline, Braulio Attending Unavailab le Roseline, Braulio Admitting Unavailab le Jones, Skye E Primary Care Unavailable Maxim Pinto Attending Unavailable Roseline, Braulio Admitting Unavailab le Jones, Skye E Primary Care Unavailable Marylou Arnold Consulting Unavailable Chuyita Zaman Consulting Unavailable Genna Del Cid Consulting Unavailable Deneen Sparrow Consulting Unavailable Keren Flores Consulting Unavailable Yulissa Cuenca Consulting Unavailable Augusto Batista Consulting Unavailable RebeccaSchuyler Consulting Unavailable Anamaria Camara Consulting Unavailable Beto Zuniga Consulting Unavailable Felipe Mayes Consulting Unavailable Rocky Uribe Consulting UnavailJoe Schwartz Consulting Unavailable Ivonne Acosta Consulting Unavailable Bertha Vanessa Consulting UnavailNora Whitaker Consulting Unavailable Tariq Locke Consulting Unavailable Silva Villafana Consulting Unavailable Rehan Maxwell Consulting Unavailable Gely Chapman Consulting Unavailable Jessica Saavedra Consulting Unavailable Sandor Ramos Consulting Unavailable Juana Wells Consulting Unavailable Doamekpor, Miko E Consulting Unavailab lazara Al, Law Consulting Unavailable Salvatore Peñaloza Consulting Unavailable Kristi Craig Consulting Unavailable Vikash Garcia Consulting Unavailable Moises Mendoza Consulting Unavailable ObLindsey patel Consulting Unavailable Julio C Rajput Consulting Unavailable DaromaDwayne michaelaygiorgio Lawton Consulting Unavailable Carie Carpenter Consulting Unavailable Gisel Guerrero Consulting Unavailable Alahmad Alaa Consulting Unavailable Krystyna Cazares Consulting Unavailable Allergies Allergy Classification Reported Allergen(s) Allergy Type Date of Onset Reaction(s) Facility Aluminum aspirin (3 sources) Aluminum aspirin Drug Allergy 04-23-[address] [facility] Aspirin (6 sources) Aspirin; Translations: [ASPIRIN] Drug Allergy 04-23-20 11 Other (See Comments), Other: See Comments [place] Macrolides (antibiotic) (5 sources) Azithromycin Drug Allergy 10-20-19 13 [facility] Nalbuphine (11 sources) Nalbuphine; Translations: [NALBUPHINE] Drug Allergy 12-22-19 12 [facility] NSAIDs (11 sources) Ketorolac; Translations: [KETOROLAC] Drug Allergy 07-12-19 13 Hives, Itching, Rash [place] Ondansetron (3 sources) Ondansetron; Translations: [ONDANSETRON HCL] Drug Allergy 02-01-20 21 Rash [place] Opioid Agonists (20 sources) Meperidine; Translations: [MEPERIDINE] Drug Allergy 04-23-20 11 Hives, Rash, Itching [facility] Penicillins (antibiotic) (11 sources) Penicillins; Translations: [PENICILLINS] Drug Allergy 04-23-20 11 Hives, Swelling [place] Quinolones (antibiotic) (5 sources) Ciprofloxacin Drug Allergy 11-07-19 Rash [facility] (20 sources) Aluminum aspirin; Translations: [ASPIRIN] Drug Allergy 04-23-20 11 [place], [place] (20 sources) Azithromycin Drug Allergy 04-23-20 11 Swelling, [place], [place] (20 sources) fentaNYL; Translations: [FENTANYL] Drug Allergy 02-21-20 17 Itching, Rash, [place], [place] (20 sources) Ketorolac Drug Allergy 07-12-19 13 Rash [place], [place] (20 sources) Meperidine; Translations: [Demerol] Drug Allergy 04-23-20 11 [place] (20 sources) Morphine; Translations: [MORPHINE] Drug Allergy 12-19-19 16 [place] (20 sources) Nalbuphine; Translations: [nalbuphine] Drug Allergy 12-22-19 12 Hives, Weal (disorder) [place], [place] (20 sources) Penicillins; Translations: [PENICILLINS] Propensity to adverse reactions to drug 04-23-20 11 Swelling, Hives, Weal (disorder) [place], [place] (20 sources) Ciprofloxacin; Translations: [CIPROFLOXACIN] Drug Allergy 11-07-19 20 Rash, [place], [place] (7 sources) Azithromycin; Translations: [Zithromax] Drug Allergy 06-17-20 13 [facility]: (6 sources) Ciprofloxacin; Translations: [Cipro] Drug Allergy 11-07-19 20 Hives/Urticari a, Hives [facility] Work Phone: (20 sources) Ketorolac; Translations: [Toradol] Drug Allergy 06-17-20 13 Hives, Weal (disorder) [facility] Repository (1 source) Ketorolac Drug Allergy [facility] Work Phone: (20 sources) Meperidine; Translations: [MEPERIDINE] Drug Allergy 06-17-20 13 Hives, Itching, Weal (disorder) -[facility] Work Phone: (1 source) Meperidine Drug Allergy Hives, Itching [facility] Work Phone: (8 sources) Nalbuphine; Translations: [Nubain] Drug Allergy 06-17-20 [facility] (6 sources) Penicillins; Translations: [Penicillins] Allergy to drug (finding) Hives -[facility] Work Phone: (20 sources) Ketorolac; Translations: [KETOROLAC] Drug Allergy 06-17-20 13 Hives, Itching [place] (20 sources) Aspirin; Translations: [aspirin] Drug Allergy 04-23-20 11 Other (See Comments) [place] (3 sources) Ondansetron; Translations: [ONDANSETRON HCL] Drug Allergy 02-01-20 21 Rash [place] (2 sources) Penicillins Propensity to adverse reactions to drug 07-08-19 21 Hives [place] (4 sources) Ondansetron Drug Allergy Unknown [facility] (1 source) Aspirin Drug Allergy [facility] (1 source) fentaNYL Drug Allergy [facility] Repository (2 sources) Morphine Drug Allergy [facility] (1 source) Penicillin Drug Allergy [facility] (1 source) Penicillins Drug allergy (disorder) 06-17-20 13 [facility] Repository (4 sources) Ciprofloxacin; Translations: [CIPROFLOXACIN HCL] Drug Allergy 11-16-19 22 [facility] (20 sources) Nalbuphine; Translations: [NALBUPHINE] Drug Allergy 06-17-20 13 [facility] (12 sources) Ondansetron; Translations: [ondansetron] Drug Allergy 10-01-[address] [facility] (3 sources) Penicillin G Drug Allergy [facility] [employer] Other (8 sources) Penicillins Propensity to adverse reactions to drug 04-23-20 11 Swelling [employer] [facility] [employer] Work Phone: (6 sources) Melon; Translations: [melon] Allergy to substance 12-15-[address] [facility] (1 source) Meperidine; Translations: [Demerol HCl] Drug Allergy [facility] Repository (1 source) fentaNYL Drug Allergy 07-07-19 [facility] Repository (1 source) Ketorolac Drug Allergy 07-07-19 [facility] Repository (1 source) Morphine Drug Allergy 07-07-19 [facility] Repository (1 source) Penicillins Drug allergy (disorder) 07-07-19 [facility] Repository NEGATED: Highlighted row has been ruled out! (2 sources) Other Propensity to adverse reactions 12-15-19 [facility], [facility] Medications Current Medications Medication Drug Class(es) Dates Sig (Normalized) Sig (Original) acetaminophen 325 mg / oxyCODONE hydrochloride 5 mg oral tablet (20 sources) Opioid Agonist Start: 07-09-2023 End: 07-16-2023 acetaminophen-oxyc odone 325 mg-5 mg Tab TAKE 1 TO 2 TABLETS BY MOUTH EVERY 8 HOURS NEEDED FOR PAIN for up to 7 (SEVEN) days max DAILY amount 6 (SIX) TABLETS reduce doses taken as pain becomes manageable Start Date: 07/12/23 Status: Ordered Start: 07-08-2023 End: 07-08-2023 oxyCODONE-acetaminophen (PER COCET) 5-325 MG per tablet 2 tablet Start: 10-30-2022 End: 12-06-2022 take 1 tablet by mouth three times daily Oxycodone-Acetaminophen (Percocet) 5-325 mg tablet Discontinued 1 TAB PO Three times daily 9 October 30, 2022 December 06, 2022 4:16am Start: 10-28-2022 End: 12-06-2022 Start: 09-08-2022 End: 12-06-2022 Percocet 5 mg-325 mg oral ta blet 1 tab(s), Oral, q6hr, 12 tab(s), Refill(s) 0 Start Date: 10/09/22 Status: Ordered Start: 08-25-2022 End: 08-25-2022 oxyCODONE-acetaminophen (PER COCET) 5-325 MG per tablet 1 tablet Start: 08-18-2022 take 1 tablet by svetlana th every eight hours Percocet 5 mg-325 mg oral tablet 1 tab(s), Oral, q8hr, 8 tab(s), Refill(s) 0, [id number], 170.2, cm, 08/18/22 19:13:00 EST, Height/Length Dosing, 110, kg, 08/18/22 19:13:00 EST, Weight Dosing Start Date: 08/18/22 Status: Ordered Start: 04-25-2022 Percocet 325 m g-5 mg Tab See Instructions, as needed for pain, 40 tab(s), Refill(s) 0, 1-2 tab(s) Oral q4hr, [id number], 170.2, cm, 04/21/22 21:37:00 EDT, Height/Length Dosing, 109, kg, 04/21/22 21:37:00 EDT, Weight Dosing Start Date: 04/25/22 Status: Ordered Start: 04-25-2022 Percocet 325 m g-5 mg Tab See Instructions, as needed for pain, 40 tab(s), Refill(s) 0, 1-2 tab(s) Oral q4hr, [id number], 170.2, cm, 04/21/22 21:37:00 EDT, Height/Length Dosing, 109, kg, 04/21/22 21:37:00 EDT, Weight Dosing Start Date: 04/25/22 Status: Ordered Start: 04-15-2021 End: 04-15-2021 oxyCODONE-acetaminophen (PER COCET) 5-325 MG per tablet 1 tablet Start: 03-04-2021 End: 04-16-2021 oxyCODONE-acetaminophen (PER COCET) 5-325 MG per tablet Indications: Right flank pain , Acute cystitis with hematuria Take 1-2 tablets by mouth every 6 hours as needed for Pain for up to 4 doses. 4 tablet 0 04/15/2021 04/16/2021 Active Start: 02-02-2021 End: 02-07-2021 take 1 tablet by mouth every six hours as needed for pain oxyCODONE-acetaminophen (PERCOCET) 5-325 mg per tablet Indications: Flank pain Take 1 (one) tablet by mouth every 6 (six) hours as needed for pain . 20 tablet 0 02/02/2021 02/07/2021 Active Start: 02-02-2021 End: 02-02-2021 take 1 tablet by mouth every six hours as needed oxyCODONE-acetaminophen (PERCOCET) 5-325 mg per tablet 1 tablet Start: 04-30-2020 End: 05-02-2020 take 1 tablet by mouth four times daily oxycodone-acetaminophen 5 mg-325 mg oral tablet ; 1 tab(s) orally 4 times a day Quantity: 12 Refills: 0 Ordered: 30-Apr-2020 Marguerite Long Start: 30-Apr-2020 End: 02-May-2020 Generic Substitution Allowed Comments: Caution federal law prohibits the transfer of this drug to any person other than the person for whom it was prescribed.May cause drowsiness. Alcohol may intensify this effect. Use care when operating dangerous machinery.This prescription cannot be refilled.This product contains acetaminophen. Do not use with any other product containing acetaminophen to prevent possible liver damage.Using more of this medication than prescribed may cause serious breathing problems. Start: 04-25-2020 Percocet 325 m g-5 mg Tab 1 tab(s), Oral, TID as needed for pain, 2 tab(s), Refill(s) 0, Take one tab by mouth every four hours as needed for pain Start Date: 04/25/20 Status: Ordered Start: 03-05-2020 End: 03-08-2020 take 1 tablet by mouth every eight hours as needed for pain, then take 1 tablet by mouth as needed for pain oxyCODONE-acetaminophen (PERCOCET) 5-325 MG per tablet Indications: Right flank pain Take 1 tablet by mouth every 8 hours as needed for Pain for up to 3 days. Intended supply: 3 days. Take lowest dose possible to manage pain 8 tablet 0 03/05/2020 03/08/2020 Active Start: 12-25-2019 End: 03-05-2020 take 2 capsules by mouth four times daily oxycodone-acetaminophen 5 mg-325 mg oral tablet ; 2 cap(s) orally 4 times a day Quantity: 40 Refills: 0 Ordered: 26-Jan-2020 Jone Meyers Start: 26-Jan-2020 End: 01-Feb-2020 Generic Substitution Allowed Comments: Caution federal law prohibits the transfer of this drug to any person other than the person for whom it was prescribed.May cause drowsiness. Alcohol may intensify this effect. Use care when operating dangerous machinery.This prescription cannot be refilled.This product contains acetaminophen. Do not use with any other product containing acetaminophen to prevent possible liver damage.Using more of this medication than prescribed may cause serious breathing problems. Start: 11-09-2019 take 1 tablet by svetlana th every four hours as needed oxycodone-acetaminophen 5 mg-325 mg oral tablet ; 1 tab(s) orally every 4 hours, As needed, Pain - Mod (4-6) Quantity: 24 Refills: 0 Ordered: 09-Nov-2019 Jeremy Redman Start: 09-Nov-2019 Status: Other Generic Substitution Allowed Start: 06-11-2019 End: 06-12-2019 take 1 tablet by mouth every six hours as needed Percocet 5/325 oral tablet ; 1 tab(s) orally every 6 hours, As Needed Quantity: 8 Refills: 0 Ordered: 11-Jun-2019 Andrew Rod Start: 11-Jun-2019 End: 12-Jun-2019 Status: Other Generic Substitution Allowed Comments: Caution federal law prohibits the transfer of this drug to any person other than the person for whom it was prescribed.May cause drowsiness. Alcohol may intensify this effect. Use care when operating dangerous machinery.This prescription cannot be refilled.This product contains acetaminophen. Do not use with any other product containing acetaminophen to prevent possible liver damage.Using more of this medication than prescribed may cause serious breathing problems. Start: 04-19-2019 End: 04-20-2019 oxyCODONE-acetaminophen (PER COCET) 5-325 MG per tablet 1 tablet Start: 03-30-2019 End: 07-06-2019 Start: 03-30-2019 End: 07-06-2019 take 1 tablet by mouth every four to six hours Oxycodone-Acetaminophen (Percocet) 5-325 mg tablet Discontinued 1 TAB PO EVERY 4-6 HOURS 15 09March 30, 2019 July 06, 2019 12:10pm Start: 01-19-2019 End: 04-27-2019 take 1 tablet by mouth every six hours as needed for pain, then take 1 tablet by mouth as needed for pain oxyCODONE-acetaminophen (PERCOCET) 5-325 MG per tablet Indications: Hyperlipidemia, unspecified hyperlipidemia type Take 1 tablet by mouth every 6 hours as needed for Pain for up to 5 days. Intended supply: 5 days. Take lowest dose possible to manage pain 20 tablet 0 04/22/2019 04/27/2019 Active Start: 09-13-2017 End: 10-12-2017 take 1 tablet by mouth every four to six hours Oxycodone-Acetaminophen (Percocet) 5-325 mg tablet Discontinued 1 TAB PO EVERY 4-6 HOURS September 13, 2017 October 12, 2017 5:09am Start: 09-13-2017 End: 10-12-2017 Comment on above: Caution federal law prohibits the transfer of this drug to any person other than the person for whom it was prescribed.May cause drowsiness. Alcohol may intensify this effect. Use care when operating dangerous machinery.This prescription cannot be refilled.This product contains acetaminophen. Do not use with any other product containing acetaminophen to prevent possible liver damage.Using more of this medication than prescribed may cause serious breathing problems. [id number] actuat albuterol 0.09 mg/actuat metered dose inhaler (20 sources) beta2-Adrenergic Agonist Start: 0 take 2 puff(s) by inhalation every six hours as needed for wheezing albuterol sulfate HFA (PROAIR HFA) 108 (90 Base) MCG/ACT inhaler Inhale 2 puffs into the lungs every 6 hours as needed for Wheezing 1 Inhaler 1 04/30/2020 Active Start: 04-30-2020 take 2 puff(s) by in halation every six hours as needed for wheezing albuterol sulfate HFA (PROAIR HFA) 108 (90 Base) MCG/ACT inhaler Inhale 2 puffs into the lungs every 6 hours as needed for Wheezing 1 Inhaler 1 04/30/2020 Active Start: 04-18-2019 take 2 puff(s) by in halation every four hours as needed for wheezing 2 puff, Inhalation, EVERY 4 HOURS PRN, Wheezing, Shortness of Breath, Starting 04/18/19 at 0122 Start: 04-04-2019 take 2 puff(s) by in halation every four hours as needed for wheezing albuterol sulfate (PROAIR RESPICLICK) 108 (90 Base) MCG/ACT aerosol powder inhalation Indications: Cough Inhale 2 puffs into the lungs every 4 hours as needed for Wheezing or Shortness of Breath 1 Inhaler 5 04/04/2019 Active albuterol sulfate HFA (PROAIR HFA) 108 (90 Base) MCG/ACT inhaler (3 sources) Start: 04-30-2020 take 2 puff(s) by inhalation every six hours as needed for wheezing albuterol sulfate HFA (PROAIR HFA) 108 (90 Base) MCG/ACT inhaler Inhale 2 puffs into the lungs every 6 hours as needed for Wheezing 1 Inhaler 1 04/30/2020 Active albuterol sulfate HFA 108 (90 Base) MCG/ACT inhaler 2 puff (1 source) Start: 05-06-2020 take 2 puff(s) by inhalation every four hours as needed for wheezing 2 puff, Inhalation, EVERY 4 HOURS PRN, Wheezing, Shortness of Breath, Starting 05/06/20 at 1439 ascorbic acid 500 mg chewable tablet (20 sources) Vitamin C Start: 11-19-2021 End: 07-09-2023 take 1 tablet by mouth once daily ascorbic acid (VITAMIN C) 500 MG tablet Take 1 tablet by mouth daily 30 tablet 3 11/19/2021 07/09/2023 Discontinued (Stop Taking at Discharge) Start: 07-24-2021 End: 12-06-2021 take 500 mg by mouth once daily 500 mg, Oral, Daily, F irst dose on Thu12/04/21 at 0900 Start: 05-10-2020 take 1 tablet by mouth once da kinjal vitamin C (VITAMIN C) 500 MG tablet Take 1 tablet by mouth daily 30 tablet 3 05/18/2020 Active azithromycin 250 mg oral tablet (7 sources) Macrolide Antimicrobial Start: 10-19-2022 azithromycin 250 mg Tab 250 mg, Oral, As Directed, # 6 tab(s), Refills(s) 0, Pharmacy: [id number], 170, cm, 10/19/22 14:38:00 EDT, Height/Length Dosing, 118, kg, 10/19/22 14:38:00 EDT, Weight Dosing Start Date: 10/19/22 Status: Ordered Start: 05-01-2020 End: 05-18-2020 azithromycin (ZITHROMAX Z-PA K) 250 MG tablet Indications: COVID-19 Take 2 tablets (500 mg) on Day 1, and then take 1 tablet (250 mg) on days 2 through 5. 1 packet 0 05/01/2020 05/18/2020 Discontinued (Stop Taking at Discharge) benzonatate 100 mg oral capsule (6 sources) Non-narcotic Antitussive Start: 04-30-2020 take 1 capsule by mouth three times daily as needed for cough benzonatate (TESSALON PERLES) 100 MG capsule Take 1 capsule by mouth 3 times daily as needed for Cough 20 capsule 0 04/30/2020 Active blood glucose monitor kit and supplies (20 sources) Start: 06-19-2021 blood glucose monitor kit and supplies 1 kit by Other route 4 times daily (before meals and nightly) Pt test 4x daily Dx E11.65. May substitute for generic or insurance covered product 1 kit 0 06/19/2021 Suspended Start: 06-19-2021 blood glucose monitor kit and supplies 1 kit by Other route 4 times daily (before meals and nightly) Pt test 4x daily Dx E11.65. May substitute for generic or insurance covered product 1 kit 0 06/19/2021 Active Start: 04-04-2019 blood glucose monitor kit and supplies Indications: Uncontrolled type 2 diabetes mellitus with complication, with long-term current use of insulin (HCC) Test 4 times a day & as needed for symptoms of irregular blood glucose. 1 kit 0 04/04/2019 Active Start: 01-06-2018 blood glucose monitor kit and supplies 1 kit by Other route 4 times daily Test 4 times a day & as needed for symptoms of irregular blood glucose. PLEASE GIVE ONE TOUCH VERIO 1 kit 0 01/06/2018 Active blood-glucose meter kit (2 sources) Start: 06-19-2021 blood-glucose meter kit 1 kit by Other route 4 (four) times a day before meals and nightly . 0 06/19/2021 Active Start: 06-19-2021 blood-glucose meter kit 1 kit by Other route 4 (four) times a day before meals and nightly . 0 06/19/2021 bmp, magnesium on 11/11/19. Send results to PCP ICD 10: E87.6 (3 sources) Start: 11-09-2019 bmp, magnesium on 11/11/19. Send results to PCP ICD 10: E87.6 Quantity: 1 Refills: 0 Ordered: 09-Nov-2019 Jeremy Redman Start: 09-Nov-2019 Status: Other Generic Substitution Allowed brompheniramine maleate 0.4 mg/ml / dextromethorphan hydrobromide 2 mg/ml / pseudoephedrine hydrochloride 6 mg/ml oral solution (7 sources) alpha-Adrenergic Agonist, Uncompetitive W-eewgzg-M-aspartat e Receptor Antagonist, Sigma-1 Agonist Start: 10-19-2022 take 5 mL by mouth four times daily as needed for cough brompheniramine-p seudoephedrine-DM 2-30-10 MG/5ML syrup Take 5 mLs by mouth 4 times daily as needed for Cough 120 mL 0 12/12/2022 Active cephalexin 500 mg oral capsule (20 sources) Cephalosporin Antibacterial Start: 10-27-2022 End: 11-03-2022 take 1 capsule by mouth every six hours Keflex 500 mg Cap 500 mg = 1 cap(s), Oral, q6hr, X 7 day(s), # 28 cap(s), Refills(s) 0, Pharmacy: [id number], 170, cm, 10/27/22 20:07:00 EDT, Height/Length Dosing, 118, kg, 10/27/22 20:07:00 EDT, Weight Dosing Start Date: 10/27/22 Stop Date: 11/03/22 Status: Ordered Start: 09-06-2022 End: 09-21-2022 take 500 mg by mouth every six hours Cephalexin Discontinued 500 MG PO Q6H 40 10 September 06, 2022 12:00am September 21, 2022 8:18pm Start: 08-08-2022 End: 08-15-2022 take 1 capsule by mouth every twelve hours Keflex 500 mg Cap 500 mg = 1 cap(s), Oral, q12hr, X 7 day(s), # 14 cap(s), Refills(s) 0, Pharmacy: [id number], 170, cm, 08/08/22 19:35:00 EST, Height/Length Dosing, 119.6, kg, 08/08/22 19:35:00 EST, Weight Dosing Start Date: 08/08/22 Stop Date: 08/15/22 Status: Ordered Start: 07-17-2022 End: 07-24-2022 take 1 capsule by mouth four times daily Keflex 500 mg Cap 500 mg = 1 cap(s), Oral, QID, X 7 day(s), # 28 cap(s), Refills(s) 0, Pharmacy: [id number], 170, cm, 07/17/22 19:43:00 EST, Height/Length Dosing, 115.3, kg, 07/17/22 19:43:00 EST, Weight Dosing Start Date: 07/17/22 Stop Date: 07/24/22 Status: Ordered Start: 03-08-2022 End: 03-15-2022 take 1 capsule by mouth four times daily Keflex 500 mg Cap 500 mg = 1 cap(s), Oral, QID, X 7 day(s), # 28 cap(s), Refills(s) 0, Pharmacy: [id number], 170, cm, 03/08/22 19:56:00 EDT, Height/Length Dosing, 110.4, kg, 03/08/22 19:56:00 EDT, Weight Dosing Start Date: 03/08/22 Stop Date: 03/15/22 Status: Ordered Start: 04-23-2021 End: 05-03-2021 take 1 capsule by mouth four times daily cephALEXin (KEFLEX) 500 MG capsule Take 1 (one) capsule (500 mg total) by mouth 4 (four) times a day for 10 days . 40 capsule 0 04/23/2021 05/03/2021 Active Start: 09-20-2020 End: 09-25-2020 take 1 capsule by mouth every twelve hours cephALEXin 500 MG capsule Take 1 capsule by mouth every 12 hours for 5 days. 10 capsule 0 09/20/2020 09/25/2020 Active Start: 07-08-2020 End: 07-18-2020 take 1 capsule by mouth twice daily cephALEXin (KEFLEX) 500 MG capsule Take 1 (one) capsule (500 mg total) by mouth 2 (two) times a day for 10 days . 20 capsule 0 07/08/2020 07/18/2020 Active Start: 12-25-2019 End: 01-03-2020 take 1 capsule by mouth four times daily Keflex 250 mg oral capsule ; 1 cap(s) orally 4 times a day x 10 days Quantity: 40 Refills: 0 Ordered: 25-Dec-2019 Luis Antonio Lorenzana Start: 25-Dec-2019 End: 03-Jan-2020 Status: Other Generic Substitution Allowed Start: 07-11-2019 End: 10-20-2019 take 1 tablet by mouth twice daily cephalexin 500 mg oral tablet ; 1 tab(s) orally 2 times a day Quantity: 20 Refills: 0 Ordered: 11-Jul-2019 Misha Norris Start: 11-Jul-2019 End: 20-Oct-2019 Status: Discontinued Generic Substitution Allowed Comments: Finish all this medication unless otherwise directed by prescriber. Start: 03-30-2019 End: 06-13-2019 take 1 capsule by mouth four times daily Cephalexin (Keflex) 500 mg capsule Discontinued 500 MG PO Four times daily 40 March 29, 2019 11:00pm June 13, 2019 9:00am Start: 01-19-2019 End: 03-29-2019 take 2 capsules by mouth twice daily Cephalexin (Keflex) 500 mg capsule Discontinued 1000 MG PO Twice daily 28 January 18, 2019 11:00pm March 29, 2019 9:01pm Start: 01-19-2019 End: 06-13-2019 Start: 10-12-2017 End: 10-22-2017 take 1 capsule by mouth four times daily Cephalexin (Keflex) 500 mg capsule Discontinued 500 MG PO Four times daily 39 October 11, 2017 11:00pm October 21, 2017 11:01pm Start: 10-12-2017 End: 10-22-2017 Start: 09-13-2017 End: 09-23-2017 take 2 capsules by mouth twice daily Cephalexin (Keflex) 500 mg capsule Discontinued 1000 MG PO Twice daily 40 September 12, 2017 11:00pm September 22, 2017 11:01pm Start: 09-13-2017 End: 09-23-2017 Start: 08-26-2017 End: 09-02-2017 take 1 capsule by mouth every eight hours Cephalexin (Keflex) 500 mg capsule Discontinued 500 MG PO Q8H 16 01August 26, 2017 12:00am September 02, 2017 12:04am Start: 07-13-2017 End: 08-26-2017 take 1 capsule by mouth three times daily Cephalexin (Keflex) 500 mg capsule Discontinued 500 MG PO Three times daily 16 01July 13, 2017 12:00am August 26, 2017 7:39pm space evenly during waking hours Start: 07-13-2017 End: 09-02-2017 Comment on above: Finish all this medi cation unless otherwise directed by prescriber. Continuous Blood Gluc Stitch Burnisher (FREESTYLE MYRON 14 DAY READER) POOL (8 sources) Start: 03-04-2022 Continuous Blood Gluc Stitch Burnisher (FREESTYLE MYRON 14 DAY READER) POOL Indications: Uncontrolled type 2 diabetes mellitus with complication, with long-term current use of insulin 1 actuation by Does not apply route 4 times daily (before meals and nightly) 1 each 0 03/04/2022 Suspended Start: 03-04-2022 Continuous Blo od Gluc Stitch Burnisher (FREESTYLE MYRON 14 DAY READER) POOL Indications: Uncontrolled type 2 diabetes mellitus with complication, with long-term current use of insulin 1 actuation by Does not apply route 4 times daily (before meals and nightly) 1 each 0 03/04/2022 Active Continuous Blood Gluc Sensor (FREESTYLE MYRON 14 DAY SENSOR) MISC (6 sources) Start: 06-25-2022 Continuous Blo od Gluc Sensor (FREESTYLE MYRON 14 DAY SENSOR) MISC Indications: Type 2 diabetes mellitus without complication, with long-term current use of insulin (HCC) Inject 1 actuation into the skin 4 times daily (before meals and nightly) 6 each 3 06/25/2022 Active Continuous Blood Gluc Sensor (FREESTYLE MYRON 2 SENSOR) MISC (2 sources) Start: 01-05-2023 Continuous Blo od Gluc Sensor (FREESTYLE MYRON 2 SENSOR) MISC Indications: Type 2 diabetes mellitus without complication, with long-term current use of insulin (HCC) USE DIRECTED to test BLOOD SUGAR BEFORE MEALS and NIGHTLY, leave sensor on for 14 days 5 each 0 01/05/2023 Active Start: 01-05-2023 Continuous Blo od Gluc Sensor (FREESTYLE MYRON 2 SENSOR) [facility] [place]: Type 2 diabetes mellitus without complication, with long-term current use of insulin (HCC) USE DIRECTED to test BLOOD SUGAR BEFORE MEALS and NIGHTLY, leave sensor on for 14 days 5 each 0 01/05/2023 Suspended cyclobenzaprine hydrochloride 10 mg oral tablet (5 sources) Muscle Relaxant Start: 05-28-2020 cyclobenzaprin e (FLEXERIL) tablet 10 mg Start: 01-14-2020 End: 01-24-2020 take 1 tablet by mouth twice daily as needed for muscle spasms cyclobenzaprine (FLEXERIL) 5 MG tablet Take 1 tablet by mouth 2 times daily as needed for Muscle spasms 10 tablet 0 01/14/2020 01/24/2020 Active Start: 06-11-2019 End: 06-13-2019 take 1 tablet by mouth every eight hours cyclobenzaprine 10 mg oral tablet ; 1 tab(s) orally every 8 hours Quantity: 9 Refills: 0 Ordered: 11-Jun-2019 Andrew Rod Start: 11-Jun-2019 End: 13-Jun-2019 Status: Other Generic Substitution Allowed dextromethorphan hydrobromide 2 mg/ml / guaiFENesin 20 mg/ml oral suspension (4 sources) Uncompetitive J-nefalv-B-aspartate Receptor Antagonist, Sigma-1 Agonist Start: 05-05-2020 End: 05-28-2020 take 5 mL by mouth every four hours as needed for cough guaiFENesin-dextromethorphan (ROBITUSSIN DM) 100-10 MG/5ML syrup Take 5 mLs by mouth every 4 hours as needed for Cough 120 mL 0 05/18/2020 05/28/2020 Active dicyclomine hydrochloride 10 mg oral capsule (16 sources) Anticholinergic Start: 07-12-2023 End: 07-19-2023 take 1 capsule by mouth four times daily Bentyl 10 mg Cap 10 mg = 1 cap(s), Oral, QID, X 7 day(s), # 14 cap(s), Refills(s) 0, Pharmacy: [id number], 170, cm, 07/11/23 21:19:00 EST, Height/Length Dosing, 128, kg, 07/11/23 21:19:00 EST, Weight Dosing Start Date: 07/12/23 Stop Date: 07/19/23 Status: Ordered Start: 06-07-2023 End: 06-14-2023 take 1 capsule by mouth four times daily Bentyl 10 mg Cap 10 mg = 1 cap(s), Oral, QID, X 7 day(s), # 28 cap(s), Refills(s) 0, Pharmacy: [id number], 170, cm, 06/06/23 22:30:00 EST, Height/Length Dosing, 127.1, kg, 06/06/23 22:30:00 EST, Weight Dosing Start Date: 06/07/23 Stop Date: 06/14/23 Status: Ordered Start: 04-22-2022 End: 04-29-2022 take 1 capsule by mouth four times daily as needed for pain Bentyl 10 mg Cap 10 mg = 1 cap(s), Oral, QID, PRN Pain, X 7 day(s), # 30 cap(s), Refills(s) 0, Pharmacy: [facility] #[id number], 170.2, cm, 04/21/22 21:37:00 EDT, Height/Length Dosing, 109, kg, 04/21/22 21:37:00 EDT, Weight Dosing Start Date: 04/22/22 Stop Date: 04/29/22 Status: Ordered Start: 11-19-2020 dicyclomine (B ENTYL) injection 20 mg Start: 11-19-2020 take 1 tablet by svetlana three times daily as needed for muscle spasms dicyclomine 20 MG tablet Take 1 tablet by mouth 3 times daily as needed for Abdominal Spasms. 8 tablet 0 11/19/2020 Active Start: 11-09-2019 take [address] [facility] four times daily for pain dicyclomine 10 mg oral capsule ; 2 cap(s) orally 4 times a day, As Needed abdominal pain Quantity: 24 Refills: 0 Ordered: 09-Nov-2019 Jeremy Redman Start: 09-Nov-2019 Status: Other Generic Substitution Allowed Comments: May cause drowsiness. Alcohol may intensify this effect. Use care when operating dangerous machinery. Start: 04-10-2019 End: 04-09-2020 take 10 mg by mouth four times daily before mealtime 10 mg, Oral, 4 TIMES DAILY BEFORE MEALS & NIGHTLY, First dose on 04/18/19 at 0123 Start: 03-03-2017 take 1 tablet by svetlana th four times daily Bentyl 20 mg Tab 20 mg = 1 tab(s), Oral, QID, # 20 tab(s), Refills(s) 0 Start Date: 03/03/17 Status: Ordered Comment on above: May cause drowsiness . Alcohol may intensify this effect. Use care when operating dangerous machinery. doxycycline hyclate 100 mg oral capsule (20 sources) Tetracycline-class Drug Start: 1 End: 2 take 1 capsule by mouth twice daily doxycycline hyclate 100 MG capsule Take 1 capsule by mouth 2 times daily for 10 days. 20 capsule 0 06/25/2021 07/05/2021 Active Start: 01-14-2021 End: 01-24-2021 take 1 capsule by mouth twice daily doxycycline hyclate 100 MG capsule Take 1 capsule by mouth 2 times daily for 10 days. 20 capsule 0 01/14/2021 01/24/2021 Active Start: 03-11-2020 End: 03-25-2020 take 100 mg by mouth twice daily Doxycycline Hyclate Discontinued 100 MG PO Twice daily March 10, 2020 11:00pm March 25, 2020 8:03am doxycycline (VIBRAMYCIN) 100 mg in dextrose 5 % 100 mL IVPB (1 source) Start: 01-08-2020 doxycycline (VIBRAMYCIN) 100 mg in dextrose 5 % 100 mL IVPB 0.5 ml dulaglutide 1.5 mg/ml auto-injector (20 sources) GLP-1 Receptor Agonist Start: 03-29-2023 Dulaglutide (TRULICI TY) 0.75 MG/0.5ML SOPN Indications: Type 2 diabetes mellitus without complication, with long-term current use of insulin (HCC) Inject 0.75 mg into the skin once a week 4 Adjustable Dose Pre-filled Pen Syringe 2 05/14/2023 Active Start: 04-15-2022 Trulicity Pen SubCutaneous, qWeek, Blood glucose Start Date: 04/15/22 Status: Ordered Start: 02-26-2022 End: 12-06-2022 Dulaglutide (Trulicity) 0.75 mg/0.5 mL pen injector Discontinued 0.75 MG SUBCUT As Directed March 30, 2022 11:00pm December 06, 2022 4:35am Trulicity Active ergocalciferol 1.25 mg oral capsule (20 sources) Provitamin D2 Compound Start: 10-12-2022 take 1 capsule by mouth every week vitamin D (ERGOCALCIFEROL) 1.25 MG (45588 UT) CAPS capsule Indications: Vitamin D deficiency Take 1 capsule by mouth once a week 4 capsule 0 10/12/2022 Active Start: 09-07-2022 End: 10-07-2022 take 1 capsule by mouth every week vitamin D (ERGOCALCIFEROL) 1.25 MG (88457 UT) CAPS capsule Indications: Vitamin D deficiency Take 1 capsule by mouth once a week 4 capsule 0 09/07/2022 10/07/2022 Active Start: 05-21-2020 End: 12-06-2022 take 1250 ug by mouth once daily Ergocalciferol (Vitamin D2) Discontinued 1250 MCG PO Daily May 21, 2020 12:00am December 06, 2022 4:36am Start: 05-21-2020 End: 08-13-2022 take 1 capsule by mouth every week vitamin D (ERGOCALCIFEROL) 1.25 MG (40326 UT) CAPS capsule Indications: Vitamin D deficiency Take 1 capsule by mouth once a week 4 capsule 0 07/14/2022 Active Start: 05-10-2020 vitamin D (ERG OCALCIFEROL) capsule 50,000 Units fenofibrate 48 mg oral tablet (6 sources) Peroxisome Proliferator Receptor alpha Agonist Start: 2020 take 1 tablet by mouth once daily fenofibrate 48 mg Tab 48 mg = 1 tab(s), Oral, Daily, # 30 tab(s), Refills(s) 0, Pharmacy: [id number], 170, cm, 05/25/20 21:31:00 EST, Height/Length Dosing, 118, kg, 05/25/20 21:31:00 EST, Weight Dosing Start Date: 05/26/20 Status: Ordered fluticasone propionate 0.05 mg/actuat metered dose nasal spray (19 sources) Corticosteroid Start: 03-12-2022 take 2 spray(s) nasal route once daily Fluticasone Propionate 50 MCG/ACT 2 sprays Nasally Once a day for 14 day(s) Feb, Active Start: 04-18-2019 take 1 spray(s) nasa l route once daily 1 spray, Each Nostril, DAILY, First dose on Thu04/18/19 at 0900 Start: 04-12-2019 take 1 spray(s) nasa l route once daily fluticasone (FLONASE) 50 MCG/ACT nasal spray Indications: Allergic rhinitis, unspecified seasonality, unspecified trigger 1 spray by Each Nostril route daily 1 Bottle 1 04/12/2019 Active furosemide 40 mg oral tablet (11 sources) Loop Diuretic Start: 05-09-2020 take 1 tablet by mouth once daily furosemide (LASIX) 40 MG tablet Take 1 tablet by mouth daily 60 tablet 3 05/19/2020 Active Start: 05-07-2020 End: 05-08-2020 furosemide (LASIX) tablet 20 mg gabapentin 600 mg oral tablet (20 sources) Anti-epileptic Agent Start: 04-15-2022 End: 09-26-2022 take 1 tablet by mouth three times daily gabapentin (NEURONTIN) 600 MG tablet Indications: Diabetic polyneuropathy associated with type 2 diabetes mellitus (HCC) Take 1 tablet by mouth 3 times daily for 90 days. 90 tablet 2 03/17/2023 Active Start: 12-04-2021 End: 12-06-2021 take 600 mg by mouth every eight hours 600 mg, Oral, Every 8 hours scheduled, First dose on Thu12/04/21 at 0600 Start: 11-19-2021 End: 12-19-2021 take 1 tablet by mouth three times daily gabapentin (NEURONTIN) 600 MG tablet Take 600 mg by mouth 3 (three) times a day . 0 11/19/2021 12/19/2021 Active Start: 07-24-2021 End: 12-04-2021 take 2 capsules by mouth three times daily gabapentin (NEURONTIN) 300 MG capsule Take 600 mg by mouth 3 (three) times a day . 0 07/24/2021 12/04/2021 Discontinued (Discontinued by another clinician) Start: 05-28-2020 End: 06-11-2020 gabapentin (NEURONTIN) 100 M G capsule Take 2 capsules by mouth 2 times daily for 14 days. Intended supply: 30 days 56 capsule 0 05/28/2020 Active Gabapentin Activ e glucagon (rdna) 1 mg injection (5 sources) Antihypoglycemic Agent Start: 07-08-2023 glucago n injection 1 mg Start: 06-30-2023 inject 1 mg by subcu taneous injection every hour as needed 1 mg, SubCUTAneous, PRN, Starting on Thu06/30/23 at 2001, Until Discontinued, Low blood sugar, Blood glucose LESS THAN 70 mg/dL and patient NOT ALERT or NPO and does not have IV access. After administration, attempt intravenous access and start dextrose 10% at 100 mL/hr. Repeat blood glucose in 15 minutes x 2 and notify provider. Start: 05-28-2020 glucagon (rDNA ) injection 1 mg Start: 05-06-2020 glucagon (rDNA ) injection 1 mg Start: 04-18-2019 take 1 mL intravenou s route every hour 1 mg, Intramuscular, PRN, Low blood sugar, Blood glucose less than 70 mg/dL and patient NOT ALERT or NPO and does not have IV access., Starting 04/18/19 at 0122 After administration, attempt intravenous access and start D5W at 100 mL/hr. Repeat blood glucose in 15 minutes x2 and notify provider. 1000 ml glucose 100 mg/ml in jection (15 sources) Start: 07-08-2023 dextrose 10 % infusion Start: 07-08-2023 dextrose bolus 10% 125 mL Start: 07-08-2023 glucose chewab le tablet 16 g Start: 06-30-2023 dextrose 10 % infusion Start: 06-30-2023 dextrose bolus 10% 125 mL Start: 06-30-2023 glucose chewab le tablet 16 g Start: 05-28-2020 glucose (GLUTO SE) 40 % oral gel 15 g Start: 05-28-2020 dextrose 50 % IV solution Start: 05-28-2020 dextrose 5 % s olution Start: 05-06-2020 dextrose 5 % s olution Start: 05-06-2020 glucose (GLUTO SE) 40 % oral gel 15 g Start: 05-06-2020 dextrose 50 % IV solution Start: 04-18-2019 15 g, Oral, SC N, Low blood sugar, Starting Thu04/18/19 at 0122 If blood glucose less than 50 mg/dL and patient ALERT and TOLERATING PO, give 2 tubes glucose gel. If blood glucose less than 70 mg/dL and patient ALERT and TOLERATING PO, give 1 tube glucose gel. Repeat blood glucose in 15 minutes. If blood glucose is less than 70 mg/dL, repeat treatment and recheck blood glucose in 15 minutes x2 and notify provider. Start: 04-18-2019 12.5 g, Intrav enous, PRN, Low blood sugar, Blood glucose less than 70 mg/dL and patient NOT ALERT or NPO., Starting 04/18/19 at 0122 If patient does not respond within 5 minutes, repeat dose x1. Start D5W at 100 mL/hour until ordering provider can be reached. Repeat blood glucose in 15 minutes. If blood glucose is less than 70 mg/dL, repeat treatment and recheck blood glucose in 15 minutes x2. If using Glucostabilizer, dose as instructed per system. Start: 04-18-2019 100 mL/hr, Int ravenous, at 100 mL/hr, PRN, Low blood sugar, Starting Thu04/18/19 at 0122 Start infusion following administration of dextrose 50% or glucagon. 250 ml glucose 50 mg/ml / sodium chloride 4.5 mg/ml injection (1 source) Start: 05-06-2020 dextrose 5 % a nd 0.45 % sodium chloride infusion 12 hr guaiFENesin 600 mg extended release oral tablet (18 sources) Start: 04-04-2019 take 2 tablets by mouth twice daily guaiFENesin (MUCINEX) 600 MG extended release tablet Indications: Cough Take 2 tablets by mouth 2 times daily 60 tablet 3 04/04/2019 Active HYDROmorphone (DILAUDID) injection 0.25 mg (1 source) Start: 06-30-2023 HYDROmorphone (DILAUDID) injection 0.25 mg Insulin Aspart U-100 (Novolog Flexpen U-100 Insulin) 100 unit/mL (3 mL) insulin pen (5 sources) Start: 12-14-2022 inject 1 dose by subcutaneous injection at bedtime Insulin Aspart U-100 (Novolog Flexpen U-100 Insulin) 100 unit/mL (3 mL) insulin pen Active 0 sliding scale dose SUBCUT Before meals and at bedtime December 13, 2022 11:00pm Start: 12-06-2022 Insulin Aspart U-100 (Novolog Flexpen U-100 Insulin) 100 unit/mL (3 mL) insulin pen Active 20 UNIT SUBCUT 3x/Day before meals December 05, 2022 11:00pm Start: 12-06-2022 Insulin Aspart U-100 (Novolog Flexpen U-100 Insulin) 100 unit/mL (3 mL) insulin pen Active 20 UNIT SUBCUT 3x/Day before meals December 06, 2022 12:00am 3 ml insulin aspart, human 100 unt/ml pen injector (20 sources) Insulin Analog Start: 06-15-2023 insulin aspart (NOVOLOG FLEXPEN) 100 UNIT/ML injection pen Indications: Type 2 diabetes mellitus without complication, with long-term current use of insulin (HCC) INJECT 35 UNITS SUBCUTANEOUSLY THREE TIMES DAILY BEFORE MEALS 30 mL 0 06/15/2023 Active Start: 04-25-2022 NovoLOG 100 un its/mL injectable solution 45 unit(s), SubCutaneous, TIDAC, Refills(s) 0 Start Date: 04/25/22 Status: Ordered Start: 10-26-2021 insulin aspart (NOVOLOG FLEXPEN RELION) 100 UNIT/ML injection pen INJECT 35 UNITS SUBCUTANEOUSLY THREE TIMES DAILY BEFORE MEAL(S) 31 mL 2 07/28/2022 Active Start: 08-02-2021 insulin aspart (NOVOLOG FLEXPEN) 100 UNIT/ML injection pen Indications: Uncontrolled type 2 diabetes mellitus with complication, with long-term current use of insulin (HCC) Inject 35 Units into the skin 3 times daily (before meals) 35 mL 3 08/02/2021 Active 3 ml insulin degludec 100 unt/ml pen injector (20 sources) Insulin Analog Start: 07-28-2022 Insulin Deglud ec (TRESIBA FLEXTOUCH) 100 UNIT/ML SOPN Indications: Type 2 diabetes mellitus without complication, with long-term current use of insulin (HCC) Up to 80 units daily 15 Adjustable Dose Pre-filled Pen Syringe 3 07/28/2022 Active Start: 04-28-2022 Insulin Deglud ec (TRESIBA FLEXTOUCH) 100 UNIT/ML SOPN Indications: Type 2 diabetes mellitus without complication, with long-term current use of insulin (HCC) Up to 80 units daily 15 Adjustable Dose Pre-filled Pen Syringe 3 04/28/2022 Active Start: 06-19-2021 insulin deglud ec (Tresiba FlexTouch U-100) 100 unit/mL (3 mL) InPn Up to 80 units daily 0 06/19/2021 Active Start: 06-07-2020 Insulin Deglud ec (TRESIBA FLEXTOUCH) 100 UNIT/ML SOPN Up to 120 units daily 15 pen 3 06/07/2020 Active Start: 05-22-2020 End: 05-28-2020 Insulin Degludec (TRESIBA FLEXTOUCH) 200 UNIT/ML SOPN Inject 200 Units into the skin 3 times daily Lot [id number] Lot 05/19 2 pen 0 05/22/2020 05/28/2020 Discontinued (LIST CLEANUP) Start: 05-18-2020 Insulin Deglud ec (TRESIBA FLEXTOUCH) 100 UNIT/ML SOPN Up to 120 units daily 5 pen 3 05/18/2020 Active Start: 02-16-2020 End: 05-18-2020 Insulin Degludec (TRESIBA FLEXTOUCH) 200 UNIT/ML SOPN Indications: Uncontrolled type 2 diabetes mellitus with complication, with long-term current use of insulin (HCC) Inject up to 120 units into skin nightly 6 pen 2 02/16/2020 05/18/2020 Discontinued (Stop Taking at Discharge) Start: 12-15-2019 Insulin Deglud ec (TRESIBA FLEXTOUCH) 200 UNIT/ML SOPN Indications: Uncontrolled type 2 diabetes mellitus with complication, with long-term current use of insulin (HCC) Inject 100 units into skin nightly 18 mL 2 12/15/2019 Active Start: 07-21-2019 Insulin Deglud ec (TRESIBA FLEXTOUCH) 200 UNIT/ML SOPN Indications: Uncontrolled type 2 diabetes mellitus with complication, with long-term current use of insulin (HCC) Inject 100 units into skin nightly 18 mL 2 07/21/2019 Active Start: 04-08-2019 Insulin Deglud ec (TRESIBA FLEXTOUCH) 200 UNIT/ML SOPN Indications: Uncontrolled type 2 diabetes mellitus with complication, with long-term current use of insulin (HCC) Inject 100 units into skin nightly 18 mL 0 04/08/2019 Active Start: 03-04-2019 Insulin Deglud ec (TRESIBA FLEXTOUCH) 200 UNIT/ML SOPN Indications: Uncontrolled type 2 diabetes mellitus with complication, with long-term current use of insulin (HCC) Inject 100 units into skin nightly Please give 2 boxes for a 30 day supply 18 mL 0 03/04/2019 Active Start: 11-09-2018 Insulin Deglud ec (TRESIBA FLEXTOUCH) 200 UNIT/ML SOPN Indications: Uncontrolled type 2 diabetes mellitus with complication, with long-term current use of insulin (HCC) Inject 100 units into skin nightly Please give 2 boxes for a 30 day supply 18 mL 3 11/09/2018 Active Start: 09-13-2017 inject 100 [IU] by s ubcutaneous injection once daily at bedtime Insulin Degludec (Tresiba Flextouch U-100) 100 unit/mL (3 mL) Insulin Pen Active 100 UNIT SUBCUT Daily at bedtime September 13, 2017 12:00am inject 40 [IU] by de la vega bcutaneous injection once daily Tresiba 100 units/mL subcutaneous solution ; 40 unit(s) subcutaneous once a day Quantity: 0 Refills: 0 Ordered: 05-Dec-2022 Lawrence Win Generic Substitution Allowed inject 100 [IU] by s ubcutaneous injection once daily Tresiba FlexTouch 100 units/mL subcutaneous solution ; 100 unit(s) subcutaneous once a day Quantity: 0 Refills: 0 Ordered: 24-Jan-2020 Shakila Sutton Generic Substitution Allowed Tresiba Active Insulin Degludec 200 UNIT/ML Solution Pen-injector injection Inject 100 Units under the skin. 0 Active insulin lispro 100 unt/ml injectable solution (20 sources) Insulin Analog Start: 07-09-2023 insulin lispro (HUMALOG) injection vial 17 Units Start: 07-08-2023 insulin lispro (HUMALOG) injection vial 0-4 Units Start: 07-08-2023 End: 07-08-2023 insulin lispro (HUMALOG) injection vial 12 Units Start: 06-30-2023 insulin lispro (HUMALOG) injection vial 0-8 Units Start: 12-04-2021 End: 12-06-2021 inject 1 dose by subcutaneous injection once daily 0-15 Units, Subcutaneous, At bedtime, First dose on Thu12/04/21 at 2100 For Nightly Insulin Dose Coverage, use: CORRECTIVE (Only) for BG greater than 300 Nightly CORRECTIVE Dose Method: Follow Corrective SCALE Corrective Scale to use for BG > 300: Normal Sensitivity Scale For Downtime Calculator, use: Insulin SC NIGHTtime Start: 12-04-2021 End: 12-06-2021 inject 1 dose by subcutaneous injection three times daily before mealtime 0-30 Units, Subcutaneous, 3 times daily before meals, First dose on Thu12/04/21 at 0730 Dose should be given 10-15 minutes before a meal. If poor oral intake, nausea or blood glucose value < 80 before meal, give of the dose (rounded up to nearest unit) immediately after meal completed. If patient skipping meal, hold base prandial dose and continue to use corrective insulin as ordered. Once diet resumed, total base prandial + corrective doses may be given. Prandial Insulin Dosing Method: Specific Prandial Doses Specific Prandial Dose (units of Insulin): 35 Corrective Insulin Regimen (select desired scale to cover BG result): Normal Sensitivity Scale For Downtime Calculator, use: Insulin SC MEALtime PREprandial Start: 06-19-2021 insulin lispro (HUMALOG KWIKPEN) 200 UNIT/ML SOPN pen Inject 35 Units into the skin 3 times daily (with meals) 5 pen 3 06/19/2021 Active Start: 02-01-2021 End: 02-02-2021 insulin lispro (HumaLOG) injection 0-15 Units Start: 01-31-2021 End: 03-02-2021 insulin lispro (HumaLOG Kwik Pen Insulin) 100 unit/mL InPn Inject 12 (twelve) Units under the skin 3 (three) times a day before meals . 15 mL 0 01/31/2021 Active Start: 06-07-2020 insulin lispro (HUMALOG KWIKPEN) 200 UNIT/ML SOPN pen Inject 45 Units into the skin 3 times daily (with meals) 2 pen 3 06/07/2020 Active Start: 05-28-2020 inject 45 [IU] by de la vega bcutaneous injection three times daily at mealtime 45 Units, Subcutaneous, 3 TIMES DAILY WITH MEALS, First dose on 05/28/20 at 0800 Substituted for Insulin lispro U-200 (HumaLOG KwikPen). Start: 05-22-2020 End: 05-28-2020 insulin lispro, 1 Unit Dial, (HUMALOG KWIKPEN) 100 UNIT/ML SOPN Inject 100 Units into the skin 3 times daily (before meals) Lot [id number] Exp 02/16 2 pen 0 05/22/2020 05/28/2020 Discontinued (LIST CLEANUP) Start: 05-18-2020 insulin lispro (HUMALOG KWIKPEN) 200 UNIT/ML SOPN pen Inject 45 Units into the skin 3 times daily (with meals) 2 pen 3 05/18/2020 Active Start: 05-16-2020 insulin lispro (HUMALOG) injection vial 40 Units Start: 05-14-2020 End: 05-16-2020 insulin lispro (HUMALOG) injection vial 35 Units Start: 05-11-2020 End: 05-14-2020 insulin lispro (HUMALOG) injection vial 30 Units Start: 05-11-2020 End: 05-11-2020 insulin lispro (HUMALOG) injection vial 24 Units Start: 05-10-2020 End: 05-10-2020 insulin lispro (HUMALOG) injection vial 16 Units Start: 05-08-2020 End: 05-10-2020 insulin lispro (HUMALOG) injection vial 22 Units Start: 05-07-2020 End: 05-08-2020 insulin lispro (HUMALOG) injection vial 20 Units Start: 12-15-2019 End: 05-18-2020 insulin lispro, 1 Unit Dial, (HUMALOG KWIKPEN) 100 UNIT/ML SOPN Indications: Uncontrolled type 2 diabetes mellitus with complication, with long-term current use of insulin (HCC) Inject 45 Units into the skin 3 times daily (before meals) Inject 45 units into the skin at each meal (TID) as directed 45 mL 3 05/18/2020 Active Start: 05-11-2019 insulin lispro , 1 Unit Dial, (HUMALOG KWIKPEN) 100 UNIT/ML SOPN Inject 40-45 units into the skin at each meal as directed. 45 mL 3 05/11/2019 Active Start: 04-21-2019 insulin lispro (HUMALOG) injection vial 12 Units Start: 04-20-2019 End: 04-21-2019 insulin lispro (HUMALOG) injection vial 7 Units Start: 04-19-2019 End: 04-20-2019 insulin lispro (HUMALOG) injection vial 5 Units Start: 04-18-2019 End: 05-07-2020 insulin lispro (HUMALOG) injection vial 0-6 Units Start: 04-18-2019 0-6 Units, Sub cutaneous, NIGHTLY, First dose on 04/18/19 at 0123 If continuous tube feedings/TPN/NPO, give correction dose based on result, no reduction in dose. If eating or bolus tube feeding: Medium Dose Bedtime Correction Algorithm Glucose: Dose: 70-139 No Insulin 140-199 1 Unit 200-249 2 Units 250-299 3 Units 300-349 4 Units 350-399 5 Units 400 and above 6 Units Start: 04-08-2019 insulin lispro (HUMALOG KWIKPEN) 100 UNIT/ML pen Inject 40-45 units into the skin at each meal as directed. *30 day supply per md* 45 mL 0 04/08/2019 Active Start: 07-28-2018 insulin lispro (HUMALOG KWIKPEN) 100 UNIT/ML pen Inject 40-45 units at each meals 15 pen 5 07/28/2018 Active Start: 07-13-2017 End: 12-06-2022 inject 35 [IU] by subcutaneous injection once before mealtime Insulin Lispro (Humalog) 100 unit/mL Cartridge Discontinued 35 UNITS SUBCUT 3x/Day before meals July 13, 2017 12:00am December 06, 2022 4:34am Start: 07-13-2017 End: 12-06-2022 Start: 07-13-2017 inject 45 [IU] by de la vega bcutaneous injection three times daily Insulin Lispro (Humalog) 100 unit/mL Cartridge Active 45 UNITS SUBCUT Three times daily July 13, 2017 12:00am Start: 01-25-2017 Humalog 45 uni t(s), SubCutaneous, TIDAC, Refills(s) 0, High blood sugar Start Date: 01/25/17 Status: Ordered HumaLOG Not-Krista ingram HumaLOG 100 unit s/mL injectable solution ; 40 unit(s) injectable 3 times a day Quantity: 0 Refills: 0 Ordered: 12-Apr-2019 Reshma Hall Generic Substitution Allowed HumaLOG Active levothyroxine sodium 0.05 mg oral tablet (9 sources) l-Thyroxine Start: 01-18-2023 End: 07-09-2023 take 1 tablet by mouth once daily levothyroxine (SYNTHROID) 50 MCG tablet TAKE 1 TABLET BY MOUTH DAILY at 630am 0 01/30/2023 07/09/2023 Discontinued (Stop Taking at Discharge) Levothyroxine So dium 50 MCG Oral for 30 Days Not-Taking lidocaine 0.04 mg/mg medicated patch (20 sources) Antiarrhythmic, Amide Local Anesthetic Start: 06-30-2023 apply 1 dose topically once daily 1 patch, Topical, Administer over 12 Hours, DAILY, First dose on Thu06/30/23 at 2030 Substituted for Lidocaine 5% Patch. Start: 04-08-2023 apply 1 dose transde rmal route once daily lidocaine (LIDODERM) 5 % Indications: Neck pain Place 1 patch onto the skin daily 12 hours on, 12 hours off. 30 patch 2 04/08/2023 Active Start: 10-30-2022 End: 12-06-2022 apply 1 dose topically once daily Lidocaine Discontinu ed 1 PATCH TOPICAL Daily 15 October 29, 2022 11:00pm December 06, 2022 4:34am leave on most painful area for up to 12 hrs Start: 10-30-2022 End: 12-06-2022 Start: 05-06-2020 End: 06-17-2020 lidocaine 4 % external patch Place 3 patches onto the skin daily 90 patch 5 05/18/2020 05/28/2020 Discontinued (LIST CLEANUP) Start: 01-24-2020 lidocaine 4% t opical kit ; Apply topically to affected area once a day Quantity: 5 Refills: 0 Ordered: 24-Jan-2020 Teto Balckburn Start: 24-Jan-2020 Generic Substitution Allowed Comments: For external use only. Start: 04-20-2019 lidocaine 4 % external patch 3 patch Start: 04-19-2019 End: 05-19-2019 lidocaine (LIDODERM) 5 % Jaylin ce 3 patches onto the skin daily 12 hours on, 12 hours off. 90 patch 0 04/19/2019 05/19/2019 Active Comment on above: For external use onl y. loratadine 10 mg oral tablet (11 sources) Start: 3 take 1 tablet by mouth once daily loratadine (CLARITIN) 10 MG tablet Indications: Allergic rhinitis, unspecified seasonality, unspecified trigger Take 1 tablet by mouth daily 30 tablet 5 06/16/2023 Active meclizine hydrochloride 25 mg oral tablet (5 sources) Antiemetic Start: take 25 mg by mouth three times daily Meclizine Active 25 MG PO Three times daily July 07, 2023 12:00am Start: 03-21-2023 take 1 tablet by svetlana th every eight hours as needed for dizziness meclizine (ANTIVERT) 25 MG tablet Take 1 tablet by mouth every 8 hours as needed for Dizziness 90 tablet 5 03/21/2023 Active metoclopramide 5 mg oral tablet (20 sources) Dopamine-2 Receptor Antagonist Start: 01-22-2023 End: 07-09-2023 take 1 tablet by mouth three times daily before mealtime as needed for nausea metoclopramide (REGLAN) 5 MG tablet TAKE 1 TABLET BY MOUTH THREE TIMES DAILY BEFORE MEALS NEEDED FOR NAUSEA 0 01/22/2023 07/09/2023 Discontinued (Stop Taking at Discharge) Start: 01-22-2023 End: 07-07-2023 take 5 mg by mouth once before mealtime Metoclopramide Hcl Discontinued 5 MG PO 3x/Day before meals January 22, 2023 9:43am July 07, 2023 3:23pm Start: 08-19-2021 take 1 tablet by svetlana four times daily at mealtime metoclopramide (REGLAN) 10 MG tablet Take 1 (one) tablet (10 mg total) by mouth 4 (four) times a day with meals and nightly . 120 tablet 0 08/19/2021 Active Start: 02-01-2021 End: 02-01-2021 metoclopramide (REGLAN) inje ction 10 mg Start: 12-13-2020 take 1 tablet by svetlana th four times daily as needed for nausea metoclopramide (REGLAN) 10 MG tablet Take 1 tablet by mouth 4 times daily as needed (nausea) 20 tablet 0 12/13/2020 Active Start: 11-25-2020 metoclopramide (REGLAN) injection 10 mg Start: 10-18-2020 End: 10-18-2020 metoclopramide (REGLAN) inje ction 10 mg Start: 10-16-2020 End: 10-16-2020 metoclopramide (REGLAN) inje ction 10 mg Start: 09-27-2020 take 1 tablet by svetlana th four times daily metoclopramide (REGLAN) 10 MG tablet Take 1 tablet by mouth 4 times daily 40 tablet 0 09/27/2020 Active Start: 09-26-2020 metoclopramide (REGLAN) injection 10 mg Start: 09-20-2020 End: 09-20-2020 metoclopramide (REGLAN) inje ction 10 mg Start: 08-14-2020 End: 08-14-2020 metoclopramide (REGLAN) inje ction 10 mg Start: 07-16-2020 End: 07-16-2020 metoclopramide (REGLAN) inje ction 10 mg Start: 07-08-2020 End: 07-08-2020 metoclopramide (REGLAN) inje ction 10 mg Start: 05-05-2020 End: 05-05-2020 metoclopramide (REGLAN) inje ction 10 mg Start: 03-04-2020 End: 03-04-2020 metoclopramide (REGLAN) inje ction 10 mg Start: 01-08-2020 End: 01-08-2020 metoclopramide (REGLAN) inje ction 10 mg Start: 07-14-2019 End: 07-14-2019 metoclopramide (REGLAN) inje ction 10 mg Start: 04-18-2019 End: 04-22-2019 metoclopramide (REGLAN) inje ction 10 mg Mounjaro 2.5 mg/0.5 mL subcutaneous solution (1 source) Mounjaro 2.5 mg/ 0.5 mL subcutaneous solution ; once a week on thursday Quantity: 0 Refills: 0 Ordered: 05-Dec-2022 Lawrence Win Generic Substitution Allowed mupirocin 0.02 mg/mg topical ointment (1 source) RNA Synthetase Inhibitor Antibacterial Start: 06-30-19 take 1 dose nasal route three times daily Each Nostril, 3 TIMES DAILY, First dose on Thu06/30/23 at 2100 nitrofurantoin, macrocrystals 25 mg / nitrofurantoin, monohydrate 75 mg oral capsule (20 sources) Nitrofuran Antibacterial Start: 01-27-20 End: 02-01-20 Start: 08-17-2022 End: 09-21-2022 take 1 capsule by mouth twice daily at mealtime Nitrofurantoin Monohyd/M-Cryst (Macrobid) 100 mg capsule Discontinued 100 MG PO Twice daily 04 02August 22, 2022 12:00am September 21, 2022 8:17pm must administer with a meal/food Start: 04-23-2020 End: 05-21-2020 take 1 capsule by mouth every twelve hours at mealtime Nitrofurantoin Monohyd/M-Cryst (Macrobid) 100 mg Capsule Discontinued 100 MG PO Q12H April 22, 2020 11:00pm May 21, 2020 5:17pm administer with a meal/food; swallow whole; do not open, crush, dissolve , or chew Start: 04-14-2019 End: 08-21-2020 take 1 capsule by mouth twice daily at mealtime Nitrofurantoin Monohyd/M-Cryst (Macrobid) 100 mg capsule Discontinued 100 MG PO Twice daily June 13, 2019 12:00am July 06, 2019 12:10pm must administer with a meal/food Start: 02-28-2019 End: 03-14-2019 take 1 capsule by mouth twice daily nitrofurantoin, macrocrystal-monohydrate, (MACROBID) 100 MG capsule Take 1 capsule by mouth 2 times daily for 14 days 28 capsule 0 02/28/2019 03/14/2019 Active Start: 12-09-2018 End: 01-19-2019 take 1 capsule by mouth twice daily at mealtime Nitrofurantoin Monohyd/M-Cryst (Macrobid) 100 mg capsule Discontinued 100 MG PO Twice daily 17 04December 08, 2018 11:00pm January 19, 2019 5:06am must administer with a meal/food Comment on above: Finish all this medi cation unless otherwise directed by prescriber.May discolor urine or feces.Take with food or milk. omeprazole 20 mg delayed release oral capsule (20 sources) Proton Pump Inhibitor Start: 0 take 20 mg by mouth once daily omeprazole 20 mg, Oral, Daily, Refills(s) 0, Control of stomach acid Start Date: 05/26/20 Status: Ordered Start: 09-13-2018 End: 07-09-2023 take 1 capsule by mouth once daily omeprazole (PRILOSEC) 20 MG delayed release capsule Indications: Gastroesophageal reflux disease without esophagitis Take 1 capsule by mouth once daily 30 capsule 0 01/13/2023 07/09/2023 Discontinued (Stop Taking at Discharge) take 1 capsule by mo uth once daily PriLOSEC 40 MG 1 capsule Orally Once a day for 30 day(s) Active End: 10-18-2014 take 1 capsule by mouth once daily Omeprazole (PRILOSEC) 40 mg capsule Take 40 mg by mouth once daily. 0 10/18/2014 Discontinued (Erroneous entry) Comment on above: Take 40 mg by mouth once daily. ondansetron 4 mg disintegrating oral tablet (20 sources) Serotonin-3 Receptor Antagonist Start: 07-08-2023 ondansetron (ZOFRAN-ODT) disintegrating tablet 4 mg Start: 06-30-2023 4 mg, IntraVEN ous, EVERY 6 HOURS PRN, Starting on Thu06/30/23 at 2001, Until Discontinued, Nausea, Vomiting, Post-op Start: 01-29-2023 End: 03-29-2023 take 4 mg by mouth every eight hours Ondansetron Discontinued 4 MG PO Q8H January 28, 2023 11:00pm March 29, 2023 3:31am Start: 09-17-2022 End: 09-17-2022 ondansetron (ZOFRAN) injecti on 4 mg Start: 08-29-2022 End: 12-06-2022 take 4 mg by mouth once daily Ondansetron Hcl Disconti nued 4 MG PO Daily 7 August 29, 2022 12:00am December 06, 2022 4:36am Start: 08-27-2022 End: 07-09-2023 take 1 tablet by mouth three times daily as needed for nausea ondansetron (ZOFRAN-ODT) 4 MG disintegrating tablet Indications: Diabetic polyneuropathy associated with type 2 diabetes mellitus (HCC) Take 1 tablet by mouth 3 times daily as needed for Nausea or Vomiting 21 tablet 2 08/27/2022 07/09/2023 Discontinued (Stop Taking at Discharge) Start: 08-24-2022 End: 08-24-2022 ondansetron (ZOFRAN) injecti on 4 mg Start: 08-13-2022 End: 08-13-2022 ondansetron (ZOFRAN) injecti on 4 mg Start: 07-10-2022 End: 07-10-2022 ondansetron (ZOFRAN) injecti on 4 mg Start: 07-10-2022 take 1 tablet by svetlana th three times daily as needed for nausea ondansetron (ZOFRAN-ODT) 4 MG disintegrating tablet Take 1 tablet by mouth 3 times daily as needed for Nausea or Vomiting 10 tablet 0 07/10/2022 Active Start: 05-11-2022 take 1 tablet by svetlana th every eight hours as needed for nausea Zofran 4 mg Tab 4 mg = 1 tab(s), Oral, q8hr, PRN Nausea/Vomiting, # 12 tab(s), Refills(s) 0, Pharmacy: [facility] #[id number], 170.2, cm, 05/11/22 17:35:00 EST, Height/Length Dosing, 107, kg, 05/11/22 17:35:00 EST, Weight Dosing Start Date: 05/11/22 Status: Ordered Start: 02-26-2022 End: 03-31-2022 take 4 mg by mouth every eight hours Ondansetron Hcl Discontinued 4 MG PO Q8H 15 5 February 25, 2022 11:00pm March 31, 2022 7:57pm Start: 02-26-2022 End: 03-31-2022 Start: 12-03-2021 End: 12-03-2021 ondansetron (ZOFRAN) injecti on 4 mg Start: 11-26-2021 take 1 tablet by svetlana th three times daily as needed for nausea ondansetron (ZOFRAN) 4 MG tablet Take 1 tablet by mouth 3 times daily as needed for Nausea or Vomiting 30 tablet 0 11/26/2021 Active Start: 08-19-2021 End: 08-19-2021 take 1 tablet by mouth every eight hours as needed ondansetron (ZOFRAN-ODT) 4 MG disintegrating tablet Dissolve 1 (one) tablet (4 mg total) on top of tongue every 8 (eight) hours as needed . 20 tablet 0 08/19/2021 08/19/2021 Start: 11-25-2020 End: 11-25-2020 ondansetron (ZOFRAN) injecti on 4 mg Start: 11-25-2020 take 1 tablet by svetlana th three times daily as needed for nausea ondansetron (ZOFRAN-ODT) 4 MG disintegrating tablet Take 1 tablet by mouth 3 times daily as needed for Nausea or Vomiting 21 tablet 0 11/25/2020 Active Start: 11-19-2020 End: 11-19-2020 ondansetron 4mg/2ml (ZOFRAN) injection 4 mg Start: 11-19-2020 take 1 tablet by svetlana th every four hours as needed ondansetron (Zofran ODT) 4 MG Tab Dispersible tablet Take 1 tablet by mouth every 4 hours as needed for Nausea. 8 tablet 0 11/19/2020 Active Start: 10-16-2020 End: 10-16-2020 ondansetron (ZOFRAN) injecti on 4 mg Start: 10-01-2020 End: 10-01-2020 ondansetron (ZOFRAN) injecti on 4 mg Start: 10-01-2020 End: 10-15-2020 ondansetron (ZOFRAN ODT) 4 M G disintegrating tablet Place 1 tablet under the tongue every 8 hours as needed for Nausea or Vomiting 20 tablet 0 10/01/2020 10/15/2020 Active Start: 08-16-2020 ondansetron 4 MG tablet 4 mg. 0 08/16/2020 Active Start: 08-16-2020 End: 10-01-2020 take 1 tablet by mouth once daily as needed for nausea ondansetron (ZOFRAN) 4 MG tablet Take 1 tablet by mouth daily as needed for Nausea or Vomiting 30 tablet 0 08/16/2020 10/01/2020 Discontinued (REORDER) Start: 08-14-2020 End: 08-14-2020 ondansetron (ZOFRAN) injecti on 4 mg Start: 07-23-2020 End: 03-31-2022 take 8 mg by mouth every eight hours Ondansetron Discontinued 8 MG PO Q8H 10 4 July 23, 2020 12:00am March 31, 2022 7:57pm Start: 07-08-2020 End: 07-08-2020 ondansetron (ZOFRAN) injecti on 4 mg Start: 07-01-2020 End: 07-01-2020 ondansetron (ZOFRAN) injecti on 4 mg Start: 05-27-2020 End: 05-27-2020 ondansetron (ZOFRAN) injecti on 4 mg Start: 05-05-2020 End: 05-05-2020 ondansetron (ZOFRAN) injecti on 4 mg Start: 04-29-2020 End: 04-30-2020 ondansetron (ZOFRAN) injecti on 4 mg Start: 04-23-2020 End: 05-21-2020 Ondansetron Discontinued 4 M G PO every 6 to 8 hours April 22, 2020 11:00pm May 21, 2020 5:16pm Start: 03-04-2020 End: 03-04-2020 ondansetron (ZOFRAN) injecti on 4 mg Start: 02-19-2020 End: 02-19-2020 ondansetron (ZOFRAN) injecti on 4 mg Start: 02-16-2020 End: 02-16-2020 ondansetron (ZOFRAN) injecti on 4 mg Start: 01-13-2020 End: 01-13-2020 ondansetron (ZOFRAN) injecti on 4 mg Start: 01-08-2020 End: 01-08-2020 ondansetron (ZOFRAN) injecti on 4 mg Start: 12-21-2019 End: 02-19-2020 take 4 mg by mouth every eight hours Ondansetron Discontinued 4 MG PO Q8H December 20, 2019 11:00pm February 19, 2020 3:08pm Start: 11-09-2019 take 1 tablet by svetlana four times daily as needed ondansetron 4 mg oral tablet, disintegrating ; 1 tab(s) orally 4 times a day, As Needed Quantity: 24 Refills: 0 Ordered: 09-Nov-2019 Jeremy Redman Start: 09-Nov-2019 Generic Substitution Allowed Start: 10-20-2019 End: 10-20-2019 ondansetron (ZOFRAN) injecti on 4 mg Start: 07-06-2019 End: 12-21-2019 Start: 04-26-2019 End: 10-01-2020 take 1 tablet by mouth every twelve hours as needed ondansetron (ZOFRAN ODT) 4 MG disintegrating tablet Take 1-2 tablets by mouth every 12 hours as needed for Nausea May Sub regular tablet (non-ODT) if insurance does not cover ODT. 12 tablet 0 04/26/2019 10/01/2020 Discontinued (REORDER) Start: 04-17-2019 End: 04-18-2019 4 mg, Intravenous, EVERY 6 H OURS PRN, Nausea, Starting 04/18/19 at 0122 Start: 04-10-2019 End: 04-10-2019 ondansetron (ZOFRAN) 4 MG/5M L solution 4 mg Start: 04-10-2019 End: 04-10-2019 ondansetron (ZOFRAN) injecti on 4 mg Start: 04-05-2019 End: 04-05-2019 ondansetron (ZOFRAN) injecti on 4 mg Start: 03-30-2019 End: 06-13-2019 Ondansetron Discontinued 4 M G PO EVERY 8-12 HOURS March 29, 2019 11:00pm June 13, 2019 8:59am Start: 02-28-2019 End: 02-28-2019 ondansetron (ZOFRAN) injecti on 4 mg Start: 09-13-2017 End: 09-18-2017 Start: 05-02-2013 End: 12-21-2019 Ondansetron Hcl (Zofran) 4 m g tablet Discontinued 4 MG PO every 6 to 8 hours July 06, 2019 12:00am December 21, 2019 3:47am Comment on above: Take 1 tablet by svetlana th every 8 hours as needed. orphenadrine citrate 100 mg oral tablet (9 sources) Muscle Relaxant Start: 2020 take 100 mg by mouth twice daily orphenadrine 100 mg, Oral, BID, Refills(s) 0 Start Date: 05/26/20 Status: Ordered Start: 05-13-2020 End: 05-28-2020 take 1 tablet by mouth twice daily orphenadrine (NORFLEX) 100 MG extended release tablet Take 1 tablet by mouth 2 times daily for 10 days 20 tablet 0 05/18/2020 05/28/2020 Discontinued (Therapy completed) Start: 04-19-2019 End: 04-29-2019 orphenadrine (NORFLEX) exten ded release tablet 100 mg oxyCODONE hydrochloride 5 mg oral tablet (9 sources) Opioid Agonist Start: 07-12-2023 take 1 tablet by mouth every six hours as needed for pain oxyCODONE 5 mg Tab TAKE 1 TABLET BY MOUTH EVERY 6 HOURS NEEDED FOR PAIN for up to 7 (SEVEN) days Start Date: 07/12/23 Status: Ordered Start: 07-07-2023 take 5 mg by mouth f our times daily Oxycodone Active 5 MG PO Four times daily July 07, 2023 12:00am Start: 07-01-2023 End: 07-01-2023 oxyCODONE (ROXICODONE) immed iate release tablet 5 mg Start: 06-30-2023 oxyCODONE (AGUSTÍN ICODONE) immediate release tablet 5 mg Start: 06-30-2016 End: 02-02-2021 oxyCODONE (ROXICODONE) 5 MG immediate release tablet Indications: Ureteral stone Take 1 (one) tablet (5 mg total) by mouth every 8 (eight) hours as needed (Days supply per fill: 4) . 10 tablet 0 01/31/2021 02/02/2021 Discontinued Comment on above: Caution federal law prohibits the transfer of this drug to any person other than the person for whom it was prescribed.It is very important that you take or use this exactly as directed. Do not skip doses or discontinue unless directed by your doctor.May cause drowsiness. Alcohol may intensify this effect. Use care when operating dangerous machinery.This prescription cannot be refilled.Using more of this medication than prescribed may cause serious breathing problems. phenazopyridine hydrochloride 100 mg oral tablet (20 sources) Start: 023 End: 023 take 1 tablet by mouth three times daily as needed for pain phenazopyridine (PYRIDIUM) 100 MG tablet Take 1 tablet by mouth 3 times daily as needed for Pain 9 tablet 0 08/13/2022 08/16/2022 Active Start: 12-18-2021 End: 12-19-2021 take 1 tablet by mouth three times daily at mealtime Pyridium 200 mg oral tablet ; 1 tab(s) orally 3 times a day Quantity: 5 Refills: 0 Ordered: 17-Dec-2021 Rickey Castle Start: 17-Dec-2021 End: 18-Dec-2021 Generic Substitution Allowed Comments: May discolor urine or feces.Medication should be taken with plenty of water.Take with food or milk. Start: 02-01-2021 End: 02-09-2021 take 1 tablet by mouth three times daily after mealtime phenazopyridine (PYRIDIUM) 200 MG tablet Take 1 (one) tablet (200 mg total) by mouth 3 (three) times a day after meals for 7 days . 21 tablet 0 02/02/2021 02/09/2021 Active Start: 10-01-2020 End: 10-04-2020 take 1 tablet by mouth three times daily as needed for pain phenazopyridine (PYRIDIUM) 100 MG tablet Take 1 tablet by mouth 3 times daily as needed for Pain 9 tablet 0 10/01/2020 10/04/2020 Active Start: 04-12-2019 End: 04-22-2019 take 100 mg by mouth three times daily as needed 100 mg, Oral, 3 TIMES DAILY PRN, dysuria, Starting 04/18/19 at 0122 May cause discoloration of urine. Start: 01-19-2019 take 1 tablet by svetlana th every eight hours Pyridium 200 mg oral tablet ; 1 tab(s) orally every 8 hours Quantity: 6 Refills: 0 Ordered: 19-Jan-2019 Eliel Serra Start: 19-Jan-2019 Status: Other Generic Substitution Allowed Comments: May discolor urine or feces.Medication should be taken with plenty of water.Take with food or milk. Start: 12-09-2018 End: 01-19-2019 take 1 tablet by mouth three times daily Phenazopyridine (Pyridium) 200 mg tablet Discontinued 200 MG PO Three times daily December 08, 2018 11:00pm January 19, 2019 5:06am administer with a full glass of water with each meal Comment on above: May discolor urine o r feces.Medication should be taken with plenty of water.Take with food or milk. polymyxin b 15018 unt/ml / trimethoprim 1 mg/ml ophthalmic solution (2 sources) Dihydrofolate Reductase Inhibitor Antibacterial, Polymyxin-class Antibacterial Start: 01-15-20 21 take 1 drop(s) into the eye(s) every four hours polymyxin b-trimethoprim 97512-2.1 UNIT/ML-% Solution ophthalmic solution Place 1 drop in left eye every 4 hours. 10 mL 0 01/14/2021 Active predniSONE 50 mg oral tablet (4 sources) Start: 10-20-19 End: 10-27-19 take 1 tablet by mouth once daily predniSONE 50 mg Tab 50 mg = 1 tab(s), Oral, Daily, X 7 day(s), # 7 tab(s), Refills(s) 0, Pharmacy: [id number], 170, cm, 10/19/22 14:38:00 EDT, Height/Length Dosing, 118, kg, 10/19/22 14:38:00 EDT, Weight Dosing Start Date: 10/19/22 Stop Date: 10/26/22 Status: Ordered Start: 03-12-2022 take 1 tablet by svetlana th every twelve hours predniSONE 20 MG 1 tablet Orally 2 times a day for 5 day(s) Feb, Active Start: 05-18-2020 End: 05-23-2020 take 1 tablet by mouth once daily predniSONE (DELTASONE) 50 MG tablet Take 1 tablet by mouth daily for 5 days 5 tablet 0 05/18/2020 05/23/2020 Active pregabalin 25 mg oral capsule (3 sources) Start: 11-09-2019 take 1 capsule by mouth once daily Lyrica 25 mg oral capsule ; 1 cap(s) orally once a day Quantity: 30 Refills: 0 Ordered: 09-Nov-2019 Jeremy Redman Start: 09-Nov-2019 Status: Other Generic Substitution Allowed Comments: Check with your doctor before becoming .Do not drink alcoholic beverages when taking this medication.May cause drowsiness or dizziness.This drug may impair the ability to drive or operate machinery. Use care until you become familiar with its effects. Comment on above: Check with your doct or before becoming .Do not drink alcoholic beverages when taking this medication.May cause drowsiness or dizziness.This drug may impair the ability to drive or operate machinery. Use care until you become familiar with its effects. promethazine hydrochloride 12.5 mg oral tablet (20 sources) Phenothiazine Start: 06-30-2023 promethazine (PHENERGAN) tablet 25 mg Start: 06-16-2023 take 1 tablet by svetlana th every six hours as needed for nausea and vomiting promethazine (PHENERGAN) 25 MG tablet TAKE 1 TABLET BY MOUTH EVERY 6 HOURS NEEDED FOR NAUSEA and FOR VOMITING 30 tablet 0 06/16/2023 Active Start: 09-22-2022 take 1 tablet by svetlana th every six hours as needed for nausea promethazine 12.5 mg oral tablet 12.5 mg = 1 tab(s), Oral, q6hr, PRN Nausea, # 12 tab(s), Refills(s) 0, Pharmacy: [id number], 170, cm, 09/21/22 23:04:00 EDT, Height/Length Dosing, 120.4, kg, 09/21/22 23:04:00 EDT, Weight Dosing Start Date: 09/22/22 Status: Ordered Start: 08-18-2022 take 1 tablet by svetlana th every eight hours promethazine 12.5 mg oral tablet 12.5 mg = 1 tab(s), Oral, q8hr, # 12 tab(s), Refills(s) 0, Pharmacy: [id number], 170.2, cm, 08/18/22 19:13:00 EST, Height/Length Dosing, 110, kg, 08/18/22 19:13:00 EST, Weight Dosing Start Date: 08/18/22 Status: Ordered Start: 07-04-2022 End: 08-02-2022 Promethazine Discontinued 12 .5 MG PO Three times daily July 04, 2022 12:00am August 02, 2022 2:30am 3 doses during day; last dose no later than 4 hr before bedtime Start: 07-04-2022 End: 08-02-2022 Start: 06-19-2022 take 1 tablet by svetlana th every four hours as needed for nausea promethazine 12.5 mg oral tablet 12.5 mg = 1 tab(s), Oral, q4hr, PRN for nausea/vomiting, # 60 tab(s), Refills(s) 0, Pharmacy: [id number], 170, cm, 06/18/22 23:01:00 EST, Height/Length Dosing, 111.5, kg, 06/18/22 23:01:00 EST, Weight Dosing Start Date: 06/19/22 Status: Ordered Start: 06-08-2022 End: 03-29-2023 take 25 mg by mouth every six hours Promethazine Discontinued 25 MG PO Q6H January 03, 2023 10:53am January 18, 2023 3:08am Start: 06-08-2022 End: 01-22-2023 take 25 mg by mouth three times daily Promethazine Discontinued 25 MG PO Three times daily August 22, 2022 12:00am September 21, 2022 8:17pm Start: 05-11-2022 take 25 mg rectal ro [place] [employer] [place] every six hours as needed for nausea Phenergan 25 mg Supp 25 mg = 1 supp, Rectal, q6hr, PRN Nausea/Vomiting, # 6 EA, Refills(s) 0, Pharmacy: [id number], 170, cm, 09/21/22 23:04:00 EDT, Height/Length Dosing, 120.4, kg, 09/21/22 23:04:00 EDT, Weight Dosing Start Date: 09/22/22 Status: Ordered Start: 04-22-2022 End: 08-02-2022 take 1 tablet by mouth every eight hours promethazine 12.5 mg oral tablet 12.5 mg = 1 tab(s), Oral, q8hr, # 12 tab(s), Refills(s) 0, Pharmacy: [id number], 170.2, cm, 08/18/22 19:13:00 EST, Height/Length Dosing, 110, kg, 08/18/22 19:13:00 EST, Weight Dosing Start Date: 08/18/22 Status: Ordered Start: 12-04-2021 End: 12-06-2021 take 1 tablet by mouth every six hours as needed for nausea and vomiting promethazine (PHENERGAN) tablet 12.5 mg Start: 10-01-2021 End: 03-31-2022 take 25 mg by mouth every six hours Promethazine Discontinued 25 MG PO Q6H September 30, 2021 11:00pm March 31, 2022 7:57pm Start: 08-04-2020 End: 08-06-2020 take 1 tablet by mouth every six hours promethazine 25 mg oral tablet ; 1 tab(s) orally every 6 hours Quantity: 12 Refills: 0 Ordered: 04-Aug-2020 Ludin Lundy Start: 04-Aug-2020 End: 06-Aug-2020 Generic Substitution Allowed Comments: May cause drowsiness. Alcohol may intensify this effect. Use care when operating dangerous machinery.Obtain medical advice before taking any non-prescription drugs as some may affect the action of this medication. Start: 07-01-2020 End: 07-01-2020 promethazine (PHENERGAN) inj ection 25 mg Start: 07-01-2020 End: 07-08-2020 take 1 tablet by mouth every six hours as needed for nausea promethazine (PHENERGAN) 25 MG tablet Take 1 tablet by mouth every 6 hours as needed for Nausea 20 tablet 0 07/01/2020 07/08/2020 Active Start: 05-05-2020 promethazine ( PHENERGAN) tablet 12.5 mg Start: 05-01-2020 End: 05-18-2020 take 1 tablet by mouth every six hours as needed for nausea promethazine (PHENERGAN) 25 MG tablet Take 1 tablet by mouth every 6 hours as needed for Nausea WARNING: May cause drowsiness. May impair ability to operate vehicles or machinery. Do not use in combination with alcohol. 20 tablet 0 05/01/2020 05/18/2020 Discontinued (Stop Taking at Discharge) Start: 03-05-2020 End: 04-23-2020 take 25 mg by mouth every six hours Promethazine Discontinued 25 MG PO Q6H March 10, 2020 11:00pm April 23, 2020 7:44pm Start: 03-02-2020 End: 03-06-2020 take 1 tablet by mouth every six hours as needed promethazine 12.5 mg oral tablet ; 1 tab(s) orally every 6 hours, As Needed Quantity: 20 Refills: 0 Ordered: 02-Mar-2020 Karl Wakefield Start: 02-Mar-2020 End: 06-Mar-2020 Generic Substitution Allowed Comments: May cause drowsiness. Alcohol may intensify this effect. Use care when operating dangerous machinery.Obtain medical advice before taking any non-prescription drugs as some may affect the action of this medication. Start: 02-17-2020 End: 02-17-2020 promethazine (PHENERGAN) inj ection 25 mg Start: 01-08-2020 End: 01-15-2020 take 1 tablet by mouth four times daily as needed for nausea promethazine (PHENERGAN) 25 MG tablet Take 1 tablet by mouth 4 times daily as needed for Nausea 20 tablet 0 01/08/2020 01/15/2020 Active Start: 01-03-2020 End: 02-19-2020 take 25 mg by mouth every four to six hours Promethazine Discontinued 25 MG PO EVERY 4-6 HOURS January 20, 2020 11:00pm February 19, 2020 3:08pm Start: 01-03-2020 End: 02-19-2020 take 25 mg by mouth three times daily Promethazine Discontinued 25 MG PO Three times daily January 02, 2020 11:00pm February 19, 2020 3:08pm Start: 10-20-2019 End: 10-20-2019 promethazine (PHENERGAN) inj ection 25 mg Start: 07-09-2019 End: 07-09-2019 promethazine (PHENERGAN) inj ection 25 mg Start: 07-07-2019 End: 10-20-2019 take 25 mg by mouth three times daily Promethazine Discontinued 25 MG PO Three times daily 14 July 12, 2019 12:00am July 19, 2019 9:19am Start: 04-05-2019 End: 04-05-2019 promethazine (PHENERGAN) inj ection 25 mg Start: 11-01-2018 End: 10-27-2019 take 25 mg by mouth every six hours Promethazine Discontinued 25 MG PO Q6H October 31, 2018 11:00pm March 29, 2019 9:01pm Start: 10-14-2017 End: 11-11-2017 Promethazine (Phenergan) 25 mg suppository Discontinued 25 MG SC Q4H October 13, 2017 11:00pm November 11, 2017 3:01pm Start: 10-14-2017 End: 11-11-2017 Start: 10-12-2017 End: 11-11-2017 take 25 mg by mouth every four to six hours Promethazine Discontinued 25 MG PO EVERY 4-6 HOURS October 13, 2017 11:00pm November 11, 2017 3:01pm Start: 08-26-2017 End: 09-13-2017 take 12.5 mg by mouth every six hours Promethazine Discontinued 12.5 MG PO Q6H August 26, 2017 12:00am September 13, 2017 6:26pm Start: 07-13-2017 End: 09-13-2017 take 25 mg by mouth every four to six hours Promethazine Discontinued 25 MG PO EVERY 4-6 HOURS July 13, 2017 12:00am September 13, 2017 6:26pm Comment on above: May cause drowsiness . Alcohol may intensify this effect. Use care when operating dangerous machinery.Obtain medical advice before taking any non-prescription drugs as some may affect the action of this medication. 0.25 mg, 0.5 mg dose 1.5 ml semaglutide 1.34 mg/ml pen injector (13 sources) Start: 06-19-2021 Semaglutide,0.25 or 0.5MG/DOS, (OZEMPIC, 0.25 OR 0.5 MG/DOSE,) 2 MG/1.5ML SOPN Inject 0.5 mg into the skin once a week 4 pen 1 06/19/2021 Active Start: 09-17-2020 Ozempic, 0.25 or 0.5 MG/DOSE, 2 MG/1.5ML Solution Pen- injector Inject 0.25 mg weekly for 4 weeks, then increase to 0.5 mg 0 09/17/2020 Active Start: 06-06-2020 Semaglutide,0. 25 or 0.5MG/DOS, (OZEMPIC, 0.25 OR 0.5 MG/DOSE,) 2 MG/1.5ML SOPN Inject 0.5 mg weekly give a 90 day supply 4 pen 1 06/06/2020 Active 1000 ml sodium chloride 9 mg/ml injection (20 sources) Start: 06-30-2023 take 1 mL intravenou sly every hour IntraVENous, at 100 mL/hr, CONTINUOUS, Starting on Thu06/30/23 at 2030 D/C IV and all IV medications when eating well postoperative. Post-op Start: 06-30-2023 IntraVENous, a t 5-250 mL/hr, PRN, if patient receiving piggyback infusions and maintenance fluids are not ordered OR KVO fluids to protect IV site / prevent frequent line interruptions/ long duration, Starting on Thu06/30/23 at 2001 For piggyback infusion, administer at same rate as piggyback for a total of 25 mL. Enter 25 mL into dose field and piggyback rate into rate field of order. If piggyback is infusing at a rate less than 100 mL/hr, enter 25 mL into dose field and 100 mL/hr into rate field of order. For KVO fluids, enter rate of 20 mL/hr or less into rate field of order. Post-op Start: 06-30-2023 take 1 dose intraven ously twice daily 5-40 mL, IntraVENous, EVERY 12 HOURS SCHEDULED (2 times per day), First dose on Thu06/30/23 at 2100, Until Discontinued For Line Patency: Peripheral IV = 5 mL; Midline or Central Line = 10 mL/lumen. If following IV push medication, administer flush at same rate as the IV push. Flush volume is determined by type of infusion therapy being given. For non-viscous solutions use: Peripheral IV = 5 mL Midline or Central Line = 10 mL/lumen For viscous solutions (i.e. blood components, parenteral nutrition, contrast media, or after obtaining blood sample) use: Peripheral IV = 10 mL Midline or Central Line = 20 mL/lumen Post-op Start: 06-30-2023 take 5-40 mL intrave nously once as needed 5-40 mL, IntraVENous, PRN, Starting on Thu06/30/23 at 2002, Until Discontinued, Line Care, After every IV line use For Line Patency: Peripheral IV = 5 mL; Midline or Central Line = 10 mL/lumen. If following IV push medication, administer flush at same rate as the IV push. Flush volume is determined by type of infusion therapy being given. For non-viscous solutions use: Peripheral IV = 5 mL Midline or Central Line = 10 mL/lumen For viscous solutions (i.e. blood components, parenteral nutrition, contrast media, or after obtaining blood sample) use: Peripheral IV = 10 mL Midline or Central Line = 20 mL/lumen Post-op Start: 09-17-2022 End: 09-17-2022 0.9 % sodium chloride bolus Start: 08-24-2022 End: 08-25-2022 0.9 % sodium chloride bolus Start: 08-13-2022 End: 08-13-2022 0.9 % sodium chloride bolus Start: 07-10-2022 End: 07-10-2022 0.9 % sodium chloride bolus Start: 12-04-2021 End: 12-06-2021 sodium chloride (PF) (NS) fl ush 5 mL Start: 12-03-2021 End: 12-04-2021 sodium chloride 0.9% (NS) akilah kamille 1,000 mL Start: 02-01-2021 End: 02-02-2021 sodium chloride (PF) (NS) fl ush 5 mL Start: 02-01-2021 End: 02-02-2021 sodium chloride 0.9% (NS) Start: 02-01-2021 End: 02-02-2021 sodium chloride (PF) (NS) fl ush 5 mL Start: 11-25-2020 End: 11-26-2020 0.9 % sodium chloride bolus Start: 11-19-2020 End: 11-19-2020 sodium chloride 0.9% IV solu tion 1,000 mL Start: 10-18-2020 End: 10-18-2020 sodium chloride 0.9% (NS) akilah kamille 1,000 mL Start: 10-18-2020 End: 10-18-2020 sodium chloride (PF) (NS) fl ush 5 mL Start: 10-16-2020 End: 10-17-2020 sodium chloride 0.9% (NS) akilah kamille 1,000 mL Start: 10-16-2020 End: 10-17-2020 sodium chloride (PF) (NS) fl ush 5 mL Start: 10-01-2020 End: 10-01-2020 0.9 % sodium chloride bolus Start: 09-26-2020 End: 09-27-2020 0.9 % sodium chloride bolus Start: 08-14-2020 End: 08-14-2020 sodium chloride 0.9% (NS) akilah kamille 1,000 mL Start: 08-14-2020 End: 08-15-2020 sodium chloride (PF) (NS) fl ush 5 mL Start: 07-16-2020 End: 07-16-2020 sodium chloride (PF) (NS) fl ush 5 mL Start: 07-08-2020 End: 07-09-2020 sodium chloride (PF) (NS) fl ush 5 mL Start: 07-01-2020 End: 07-01-2020 0.9 % sodium chloride bolus Start: 05-27-2020 End: 05-28-2020 0.9 % sodium chloride bolus Start: 05-25-2020 End: 05-25-2020 0.9 % sodium chloride bolus Start: 05-06-2020 End: 05-08-2020 0.9 % sodium chloride bolus Start: 05-05-2020 10 mL, Intrave nous, EVERY 12 HOURS SCHEDULED (2 times per day), First dose on 05/05/20 at 2100 Start: 05-05-2020 take 10 mL intraveno us route once as needed 10 mL, Intravenous, PRN, Line Care, After every IV line use, Starting 05/05/20 at 1339 Start: 05-05-2020 End: 05-05-2020 0.9 % sodium chloride bolus Start: 05-01-2020 End: 05-01-2020 0.9 % sodium chloride bolus Start: 04-29-2020 End: 04-30-2020 0.9 % sodium chloride bolus Start: 03-04-2020 End: 03-05-2020 0.9 % sodium chloride bolus Start: 02-19-2020 End: 02-19-2020 0.9 % sodium chloride bolus Start: 02-16-2020 End: 02-17-2020 0.9 % sodium chloride bolus Start: 01-13-2020 End: 01-14-2020 0.9 % sodium chloride bolus Start: 01-08-2020 End: 01-08-2020 0.9 % sodium chloride bolus Start: 10-20-2019 End: 10-20-2019 0.9 % sodium chloride bolus Start: 07-14-2019 End: 07-14-2019 0.9 % sodium chloride bolus Start: 07-09-2019 End: 07-09-2019 0.9 % sodium chloride bolus Start: 04-20-2019 End: 04-22-2019 0.9 % sodium chloride infusi on Start: 04-18-2019 10 mL, Intrave nous, EVERY 12 HOURS SCHEDULED (2 times per day), First dose on 04/18/19 at 0900 Start: 04-18-2019 take 10 mL intraveno us route once as needed 10 mL, Intravenous, PRN, Line Care, After every IV line use, Starting 04/18/19 at 0122 Start: 04-18-2019 End: 04-18-2019 Intravenous, at 100 mL/hr, CONTINUOUS, Starting 04/18/19 at 0123, For 10 hours Start: 04-17-2019 End: 04-18-2019 0.9 % sodium chloride bolus Start: 04-10-2019 End: 04-10-2019 0.9 % sodium chloride bolus Start: 04-05-2019 End: 04-05-2019 0.9 % sodium chloride bolus Start: 02-28-2019 End: 02-28-2019 0.9 % sodium chloride bolus sulfamethoxazole 800 mg / trimethoprim 160 mg oral tablet (20 sources) Dihydrofolate Reductase Inhibitor Antibacterial, Sulfonamide Antimicrobial Start: 04-21-2023 take 1 tablet by mouth every twelve hours Bactrim DS 800-160 MG 1 tablet Orally Twice a day for 10 days Mar, Active Start: 08-11-2022 End: 08-25-2022 take 1 tablet by mouth twice daily Bactrim D.S. 800 mg-160 mg Tab 1 tab(s), Oral, BID for 7 day(s), 14 tab(s), Refill(s) 0, [id number], 170.2, cm, 08/18/22 19:13:00 EST, Height/Length Dosing, 110, kg, 08/18/22 19:13:00 EST, Weight Dosing Start Date: 08/18/22 Stop Date: 08/25/22 Status: Ordered Start: 06-19-2022 End: 06-26-2022 take 1 tablet by mouth twice daily Bactrim D.S. 800 mg-160 mg Tab 1 tab(s), Oral, BID for 7 day(s), 14 tab(s), Refill(s) 0, [id number], 170, cm, 06/18/22 23:01:00 EST, Height/Length Dosing, 111.5, kg, 06/18/22 23:01:00 EST, Weight Dosing Start Date: 06/19/22 Stop Date: 06/26/22 Status: Ordered Start: 04-15-2021 End: 04-15-2021 sulfamethoxazole-trimethopri m (BACTRIM DS;SEPTRA DS) 800-160 MG per tablet 1 tablet Start: 04-15-2021 End: 04-22-2021 take 1 tablet by mouth twice daily sulfamethoxazole-trimethoprim (BACTRIM DS) 800-160 MG per tablet Take 1 tablet by mouth 2 times daily for 7 days 14 tablet 0 04/15/2021 04/22/2021 Active Start: 11-25-2020 End: 12-05-2020 take 1 tablet by mouth twice daily sulfamethoxazole-trimethoprim (BACTRIM DS;SEPTRA DS) 800-160 MG per tablet Take 1 tablet by mouth 2 times daily for 10 days 20 tablet 0 11/25/2020 12/05/2020 Active Start: 10-01-2020 End: 10-01-2020 sulfamethoxazole-trimethopri m (BACTRIM DS;SEPTRA DS) 800-160 MG per tablet 1 tablet Start: 04-30-2020 End: 05-05-2020 take 1 tablet by mouth twice daily sulfamethoxazole-trimethoprim (BACTRIM DS) 800-160 MG per tablet Take 1 tablet by mouth 2 times daily for 5 days 10 tablet 0 04/30/2020 05/05/2020 Discontinued (Therapy completed) Start: 02-17-2020 End: 02-17-2020 sulfamethoxazole-trimethopri m (BACTRIM;SEPTRA) 200-40 MG/5ML suspension 20 mL Start: 01-14-2020 End: 01-14-2020 sulfamethoxazole-trimethopri m (BACTRIM DS;SEPTRA DS) 800-160 MG per tablet 1 tablet Start: 01-08-2020 End: 01-19-2020 take 1 tablet by mouth twice daily sulfamethoxazole-trimethoprim (BACTRIM DS;SEPTRA DS) 800-160 MG per tablet Take 1 tablet by mouth 2 times daily for 5 days 10 tablet 0 01/14/2020 01/19/2020 Active Start: 10-20-2019 End: 12-21-2019 take 1 tablet by mouth twice daily Sulfamethoxazole-Trimethoprim (Bactrim Ds) 800-160 mg tablet Discontinued 1 TAB PO Twice daily 20 10 October 19, 2019 11:00pm December 21, 2019 3:47am Start: 10-20-2019 End: 12-21-2019 Start: 08-18-2019 End: 08-23-2019 take 1 tablet by mouth twice daily sulfamethoxazole-trimethoprim (BACTRIM DS;SEPTRA DS) 800-160 MG per tablet Take 1 tablet by mouth 2 times daily for 5 days 10 tablet 0 08/18/2019 08/23/2019 Active Start: 07-06-2019 End: 07-19-2019 take 1 tablet by mouth twice daily Sulfamethoxazole-Trimethoprim (Bactrim Ds) 800-160 mg tablet Discontinued 1 TAB PO Twice daily 10 July 06, 2019 12:00am July 19, 2019 9:19am Start: 07-06-2019 End: 07-19-2019 Start: 04-10-2019 End: 04-10-2019 sulfamethoxazole-trimethopri m (BACTRIM DS;SEPTRA DS) 800-160 MG per tablet 1 tablet Start: 04-10-2019 End: 04-20-2019 take 1 tablet by mouth twice daily sulfamethoxazole-trimethoprim (BACTRIM DS) 800-160 MG per tablet Take 1 tablet by mouth 2 times daily for 10 days 20 tablet 0 04/10/2019 04/18/2019 Discontinued (LIST CLEANUP) take 2 tablets by mo [facility] every twelve hours Bactrim 400 mg-80 mg oral tablet ; 2 tab(s) orally every 12 hours Quantity: 0 Refills: 0 Ordered: 12-Apr-2019 [facility] Status: Discontinued Generic Substitution Allowed Tirzepatide (MOUNJARO) 2.5 MG/0.5ML SOPN SC injection (5 sources) Start: 07-28-2022 Tirzepatide (MOUNJARO) 2.5 MG/0.5ML SOPN SC injection Indications: Type 2 diabetes mellitus without complication, with long-term current use of insulin (HCC) Inject 0.5 mLs into the skin once a week 4 Adjustable Dose Pre-filled Pen Syringe 1 07/28/2022 Active tiZANidine 4 mg oral tablet (20 sources) Central alpha-2 Adrenergic Agonist Start: 06-15-2023 take 1 tablet by mouth every eight hours as needed for muscle spasms tiZANidine (ZANAFLEX) 4 MG tablet Indications: Acute neck pain TAKE 1 TABLET BY MOUTH EVERY 8 HOURS NEEDED FOR MUSCLE SPASMS 90 tablet 0 06/15/2023 Active Start: 07-28-2022 take 1 tablet by svetlana every eight hours as needed for muscle spasms tiZANidine (ZANAFLEX) 4 MG tablet Indications: Acute neck pain TAKE 1 TABLET BY MOUTH EVERY 8 HOURS NEEDED FOR MUSCLE SPASM 90 tablet 1 07/28/2022 Active Start: 04-15-2022 take 1 capsule by mo [facility] three times daily tizanidine 4 mg oral capsule 4 mg = 1 cap(s), Oral, TID, # 90 cap(s), Refills(s) 0, Muscle pain Start Date: 04/15/22 Status: Ordered Start: 04-23-2020 take 4 mg by mouth t hree times daily Tizanidine Active 4 MG PO Three times daily April 22, 2020 11:00pm Start: 04-23-2020 End: 05-12-2020 take 1 tablet by mouth every eight hours as needed for muscle spasms tiZANidine (ZANAFLEX) 4 MG tablet Indications: Acute neck pain TAKE 1 TABLET BY MOUTH EVERY 8 HOURS NEEDED FOR MUSCLE SPASM 90 tablet 0 06/27/2022 Active Start: 03-14-2020 End: 05-17-2020 take 1 tablet by mouth every six hours as needed for muscle spasms tiZANidine (ZANAFLEX) 4 MG tablet Indications: Myalgia TAKE 1 TABLET BY MOUTH EVERY 6 HOURS NEEDED FOR MUSCLE SPASMS 60 tablet 1 03/14/2020 05/17/2020 Discontinued (Stop Taking at Discharge) Start: 12-21-2019 End: 03-11-2020 Start: 12-15-2019 End: 03-11-2020 take 4 mg by mouth every six hours Tizanidine Discontinued 4 MG PO Q6H December 20, 2019 11:00pm March 11, 2020 10:10am Start: 10-11-2019 take 1 tablet by [facility] every six hours as needed for muscle spasms tiZANidine (ZANAFLEX) 4 MG tablet Take 1 tablet by mouth every 6 hours as needed (for muscle spasms) 60 tablet 1 10/11/2019 Active Start: 07-21-2019 End: 08-20-2019 take 1 tablet by mouth three times daily tiZANidine (ZANAFLEX) 4 MG tablet Indications: Flank pain Take 1 tablet by mouth 3 times daily 90 tablet 0 07/21/2019 08/20/2019 Active Start: 03-29-2019 End: 06-13-2019 take 4 mg by mouth twice daily Tizanidine Discontinued 4 MG PO Twice daily March 28, 2019 11:00pm June 13, 2019 8:59am Start: 03-29-2019 End: 06-13-2019 Start: 02-08-2019 End: 04-19-2019 take 4 mg by mouth once daily 4 mg, Oral, NIGHTLY, [facility]ir st dose on 04/18/19 at 0123 End: 12-04-2021 tiZANidine (ZANAFLEX) 2 MG t ablet Take 4 mg by mouth 3 (three) times a day . 0 12/04/2021 Discontinued (Discontinued by another clinician) End: 02-01-2021 tizanidine 4 MG capsule Take by mouth 2 times daily as needed. 0 Active take 2 tablets by mo uth every eight hours as needed Zanaflex 4 mg oral tablet ; 2 tab(s) orally every 8 hours, As Needed Quantity: 0 Refills: 0 Ordered: 12-Apr-2019 [facility] Status: Other Generic Substitution Allowed take 1 tablet by svetlana th every six hours as needed tiZANidine (ZANAFLEX) 4 MG tablet Take 4 mg by mouth every 6 hours as needed 0 Active Comment on above: Take 4 mg by mouth e very 8 hours as needed. traZODone hydrochloride 100 mg oral tablet (20 sources) Serotonin Reuptake Inhibitor Start: 06-30-2023 traZODone (DESYREL) tablet 100 mg Start: 06-16-2023 take 2 tablets by mo [facility] once daily for sleep traZODone (DESYREL) 100 MG tablet Indications: Insomnia, unspecified type TAKE 2 TABLETS BY MOUTH NIGHTLY for sleep 30 tablet 5 06/16/2023 Active Start: 03-29-2023 End: 03-29-2023 Trazodone Discontinued MG TA BLET March 28, 2023 11:00pm March 29, 2023 3:29am Start: 12-10-2022 traZODone (MARIAH YREL) tablet 200 mg Start: 12-31-2021 End: 12-10-2022 take 100 mg by mouth at bedtime Trazodone Discontinued 100 MG PO Bedtime March 30, 2022 11:00pm December 10, 2022 10:45am Start: 06-26-2020 take 1 tablet by svetlana th once daily as needed for sleep traZODone (DESYREL) 100 MG tablet Take 100 mg by mouth nightly as needed FOR SLEEP . 0 05/22/2021 traZODone HCl Ac tive Tresiba FlexTouch (16 sources) Start: 04-15-2022 Tresiba FlexTo uch SubCutaneous, Daily, Blood glucose Start Date: 04/15/22 Status: Ordered Vitamin C 100 mg oral tablet, chewable (1 source) Start: 2020 Vitamin C 100 mg oral tablet, chewable Refills(s) 0 Start Date: 05/26/20 Status: Ordered zinc sulfate 220 mg oral capsule (17 sources) Start: 02-19-2022 take 1 capsule by mouth once daily zinc sulfate (ZINCATE) 220 (50 Zn) MG capsule Take 1 capsule by mouth daily 30 capsule 3 02/19/2022 Active Start: 11-19-2021 take 1 capsule by mo ut[facility] once daily zinc sulfate (ZINCATE) 50 mg zinc (220 mg) capsule Take 50 mg by mouth daily . 0 11/19/2021 Active Start: 05-10-2020 take 1 capsule by mo [facility] once daily zinc sulfate (ZINCATE) 220 (50 Zn) MG capsule Take 1 capsule by mouth daily 30 capsule 3 05/19/2020 Active Zofran ODT 4 mg Tab-Dis (13 sources) Start: 07-12-2023 take 1 tablet by mouth every eight hours Zofran ODT 4 mg Tab-Dis 4 mg = 1 tab(s), Oral, q8hr, # 12 tab(s), Refills(s) 0, Pharmacy: [id number], 170, cm, 07/11/23 21:19:00 EST, Height/Length Dosing, 128, kg, 07/11/23 21:19:00 EST, Weight Dosing Start Date: 07/12/23 Status: Ordered Start: 01-26-2023 take 1 tablet by svetlana th every eight hours as needed for nausea Zofran ODT 4 mg Tab-Dis 4 mg = 1 tab(s), Oral, q8hr, PRN Nausea/Vomiting, # 16 tab(s), Refills(s) 0, Pharmacy: [id number], 170.2, cm, 01/26/23 19:25:00 EDT, Height/Length Dosing, 123, kg, 01/26/23 19:25:00 EDT, Weight Dosing Start Date: 01/26/23 Status: Ordered Start: 10-27-2022 take 1 tablet by svetlana th every eight hours as needed for nausea Zofran ODT 4 mg Tab-Dis 4 mg = 1 tab(s), Oral, q8hr, PRN Nausea/Vomiting, # 12 tab(s), Refills(s) 0, Pharmacy: [id number], 170, cm, 10/27/22 20:07:00 EDT, Height/Length Dosing, 118, kg, 10/27/22 20:07:00 EDT, Weight Dosing Start Date: 10/27/22 Status: Ordered Start: 10-09-2022 take 1 tablet by svetlana th every eight hours Zofran ODT 4 mg Tab-Dis 4 mg = 1 tab(s), Oral, q8hr, # 10 tab(s), Refills(s) 0, Pharmacy: [id number], 170, cm, 10/09/22 19:53:00 EDT, Height/Length Dosing, 118, kg, 10/09/22 19:53:00 EDT, Weight Dosing Start Date: 10/09/22 Status: Ordered zolpidem tartrate 5 mg oral tablet (1 source) gamma-Aminobutyric Acid-ergic Agonist Start: 05-05-2020 zolpidem (AMBIEN) tablet 5 mg (20 sources) Start: 12-14-2022 Start: 12-06-2022 Start: 12-06-2022 End: 01-03-2023 Start: 08-17-2022 End: 12-06-2022 Start: 08-17-2022 Start: 07-06-2019 End: 07-19-2019 Start: 09-13-2017 End: 12-06-2022 Start: 09-13-2017 Completed/Discontinued Medications Medication Drug Class(es) Dates Sig (Normalized) Sig (Original) 0.5 ML tirzepatide 5 MG/ML Auto-Injector [Mounjaro] (1 source) Mounjaro 2.5 MG/0.5ML Subcutaneous for 28 Days Not-Taking acetaminophen 325 mg oral tablet (20 sources) Start: 06-30-2023 take 650 mg by mouth every six hours, then take 4000 mg by mouth every twenty-four hours 650 mg, Oral, EVERY 6 HOURS, First dose on Thu06/30/23 at 2030, Until Discontinued Maximum dose of acetaminophen is 4000 mg from all sources in 24 hours. Post-op Start: 12-04-2021 End: 12-06-2021 take 1 tablet by mouth every six hours as needed for pain and headache 650 mg, Oral, Every 6 hours PRN, mild pain, fever 100.4 F or greater, headaches, infusion related reactions, Starting on Thu12/04/21 at 0515 Start: 05-28-2020 acetaminophen (TYLENOL) tablet 650 mg Start: 05-17-2020 End: 05-28-2020 take 2 tablets by mouth every six hours as needed for pain acetaminophen 325 mg Tab 650 mg = 2 tab(s), Oral, q6hr, PRN Pain, Refills(s) 0 Start Date: 05/26/20 Status: Ordered Start: 05-05-2020 650 mg, Oral, EVERY 6 HOURS PRN, Pain Mild (1-3), Fever, For temp greater than 100.4 F (38 C), Starting 05/05/20 at 1339 Maximum dose of acetaminophen is 4000 mg from all sources in 24 hours. Start: 05-05-2020 acetaminophen (TYLENOL) tablet 1,000 mg Start: 04-30-2020 take 2 tablets by mo uth every six hours as needed for pain acetaminophen (APAP EXTRA STRENGTH) 500 MG tablet Take 2 tablets by mouth every 6 hours as needed for Pain 30 tablet 0 04/30/2020 Active Start: 04-30-2020 acetaminophen (TYLENOL) tablet 500 mg Start: 01-14-2020 acetaminophen (TYLENOL) tablet 1,000 mg Start: 04-18-2019 650 mg, Oral, EVERY 4 HOURS PRN, Fever, For temp greater than 100.5 F (38 C), Starting 04/18/19 at 0122 Maximum dose of acetaminophen is 4000 mg from all sources in 24 hours. Start: 03-11-2017 take 2 tablets by mo [facility] every four hours as needed for pain acetaminophen (TYLENOL) 325 MG tablet Take 2 tablets by mouth every 4 hours as needed for Pain or Fever 120 tablet 3 03/11/2017 Active acetaminophen 325 mg / HYDROcodone bitartrate 5 mg oral tablet (20 sources) Opioid Agonist Start: 07-04-2022 End: 08-02-2022 take 1 tablet by mouth three times daily Hydrocodone-Acetaminophen Discontinued 1 TAB PO Three times daily 10 29July 04, 2022 August 02, 2022 1:01am Start: 04-15-2022 take 1 tablet by svetlana th every four hours for pain [facility] 325 mg-5 mg oral tablet 1 tab(s), Oral, q4hr for pain, Refill(s) 0 Start Date: 04/15/22 Status: Ordered Start: 04-07-2022 End: 04-13-2022 take 1 tablet by mouth three times daily Hydrocodone-Acetaminophen Discontinued 1 TAB PO Three times daily 5 April 07, 2022 April 13, 2022 3:24am Start: 04-07-2022 End: 04-13-2022 Start: 03-31-2022 End: 04-13-2022 take 1 tablet by mouth twice daily Hydrocodone-Acetaminophen Discontinued 1 TAB PO Twice daily 6 March 31, 2022 April 13, 2022 3:24am Start: 10-01-2021 End: 12-06-2022 Start: 10-01-2021 End: 12-06-2022 take 1 tablet by mouth every six hours Hydrocodone-Acetaminophen Discontinued 1 TAB PO Q6H 10 April 13, 2022 August 02, 2022 1:01am Start: 02-02-2021 End: 02-02-2021 take 1 tablet by mouth every six hours as needed HYDROcodone-acetaminophen (NORCO) 5-325 mg per tablet 1 tablet Start: 11-19-2020 End: 11-28-2020 take 1 tablet by mouth every six hours as needed for pain hydroCODone-acetaminophen 5-325 MG tablet Indications: Renal colic on right side , Hematuria, unspecified type Take 1 tablet by mouth every 6 hours as needed for Moderate Pain for up to 3 days. 6 tablet 0 11/19/2020 Active Start: 10-01-2020 End: 10-04-2020 take 1 tablet by mouth every four hours as needed for pain, then take 1 tablet by mouth as needed for pain HYDROcodone-acetaminophen (NORCO) 5-325 MG per tablet Indications: Acute cystitis with hematuria Take 1 tablet by mouth every 4 hours as needed for Pain for up to 3 days. Intended supply: 3 days. Take lowest dose possible to manage pain 18 tablet 0 10/01/2020 10/04/2020 Active Start: 09-27-2020 End: 09-30-2020 take 1 tablet by mouth every six hours as needed for pain, then take 1 tablet by mouth as needed for pain HYDROcodone-acetaminophen (NORCO) 5-325 MG per tablet Indications: Right upper quadrant abdominal pain Take 1 tablet by mouth every 6 hours as needed for Pain for up to 3 days. Intended supply: 3 days. Take lowest dose possible to manage pain 10 tablet 0 09/27/2020 09/30/2020 Active Start: 07-01-2020 End: 07-04-2020 take 1 tablet by mouth every six hours as needed for pain, then take 1 tablet by mouth as needed for pain HYDROcodone-acetaminophen (NORCO) 5-325 MG per tablet Indications: Acute cystitis without hematuria , Left flank pain Take 1 tablet by mouth every 6 hours as needed for Pain for up to 3 days. Intended supply: 3 days. Take lowest dose possible to manage pain 10 tablet 0 07/01/2020 07/04/2020 Active Start: 05-17-2020 End: 05-28-2020 take 1 tablet by mouth three times daily as needed for pain HYDROcodone-acetaminophen (NORCO) 5-325 MG per tablet Indications: Anterior pleuritic pain , COVID-19 virus infection , Costochondritis, acute , Anterior chest wall pain , Chronic pain associated with significant psychosocial dysfunction Take 1 tablet by mouth 3 times daily as needed for Pain for up to 5 days. 15 tablet 0 05/22/2020 05/28/2020 Discontinued (Stop Taking at Discharge) Start: 05-07-2020 End: 05-12-2020 HYDROcodone-acetaminophen (N ORCO) 5-325 MG per tablet 1.5 tablet Start: 01-14-2020 End: 01-17-2020 take 1 tablet by mouth every four hours as needed for pain, then take 1 tablet by mouth as needed for pain HYDROcodone-acetaminophen (NORCO) 5-325 MG per tablet Take 1 tablet by mouth every 4 hours as needed for Pain for up to 3 days. Intended supply: 3 days. Take lowest dose possible to manage pain 18 tablet 0 01/14/2020 01/17/2020 Active Start: 12-21-2019 End: 02-19-2020 Start: 12-21-2019 End: 02-19-2020 take 1 tablet by mouth every six hours Hydrocodone-Acetaminophen ([facility]) 5-325 mg tablet Discontinued 1 TAB PO Q6H 10 December 21, 2019 February 19, 2020 3:08pm Start: 07-06-2019 End: 07-19-2019 Start: 07-06-2019 End: 07-19-2019 take 1 tablet by mouth every four to six hours Hydrocodone-Acetaminophen ([facility]) 5-325 mg tablet Discontinued 1 TAB PO EVERY 4-6 HOURS 10 July 06, 2019 July 19, 2019 9:18am Start: 01-19-2019 End: 03-29-2019 take 2 tablets by mouth every four to six hours Hydrocodone-Acetaminophen ([facility]) 5-325 mg tablet Discontinued 2 TAB PO EVERY 4-6 HOURS 10 January 19, 2019 March 29, 2019 9:01pm Start: 12-09-2018 End: 01-19-2019 take 1 tablet by mouth every four hours Hydrocodone-Acetaminophen ([facility]) 5-325 mg tablet Discontinued 1 TAB PO Q4H 7 December 09, 2018 January 19, 2019 5:06am Start: 12-09-2018 End: 03-29-2019 Start: 10-12-2017 End: 11-11-2017 Start: 10-12-2017 End: 11-11-2017 take 1 tablet by mouth every four to six hours Hydrocodone-Acetaminophen ([facility]) 5-325 mg tablet Discontinued 1 TAB PO EVERY 4-6 HOURS October 12, 2017 November 11, 2017 3:00pm Start: 08-26-2017 End: 09-13-2017 take 1 tablet by mouth every four to six hours Hydrocodone-Acetaminophen ([facility]) 5-325 mg tablet Discontinued 1 TAB PO EVERY 4-6 HOURS August 26, 2017 September 13, 2017 6:26pm Start: 08-26-2017 End: 09-13-2017 120 actuat albuterol 0.1 mg/actuat / ipratropium bromide 0.02 mg/actuat metered dose inhaler (2 sources) Anticholinergic, beta2-Adrenergic Agonist Start: 05-28-2020 End: 05-28-2020 albuterol-ipratropium (COMBIVENT RESPIMAT) 20-100 MCG/ACT inhaler 1 puff Start: 05-28-2020 albuterol-ipra tropium (COMBIVENT RESPIMAT) 20-100 MCG/ACT inhaler 1 puff aluminum hydroxide 40 mg/ml / magnesium hydroxide 40 mg/ml / simethicone 4 mg/ml oral suspension (6 sources) Start: 12-04-2021 End: 12-06-2021 take 30 mL by mouth every four hours as needed 30 mL, Oral, Every 4 hours PRN, indigestion, Starting on Thu12/04/21 at 0515 Start: 08-08-2020 take 10 mL by mouth four times daily Mylanta Maximum Strength oral suspension ; 10 milliliter(s) orally 4 times a day (before meals and at bedtime), As Needed for gastritis Quantity: 180 Refills: 0 Ordered: 07-Aug-2020 Charlee Armstrong Start: 07-Aug-2020 Generic Substitution Allowed Comments: Shake well before use. Comment on above: Shake well before us e. ARIPiprazole 15 mg oral tablet (12 sources) Atypical Antipsychotic Start: take 15 mg by mouth once daily 15 mg, Oral, NIGHTLY, First dose on Thu07/08/23 at 2100, Until Discontinued Start: 01-22-2023 End: 04-03-2023 take 10 mg by mouth once daily at bedtime Aripiprazole Discontinued 10 MG PO Daily at bedtime January 21, 2023 11:00pm April 03, 2023 11:38am atorvastatin 40 mg oral tablet (1 source) HMG-CoA Reductase Inhibitor Start: 02-01-2021 End: 02-02-2021 take 40 mg by mouth once daily 40 mg, Oral, Nightly, First dose on Thu02/01/21 at 2100 azithromycin (ZITHROMAX) 500 mg in D5W 250ml addavial (1 source) Start: 05-01-2020 End: 05-01-2020 azithromycin (ZITHROMAX) 500 mg in D5W 250ml addavial bisacodyl 5 mg delayed release oral tablet (2 sources) Stimulant Laxative Start: 06-30-2023 take 5 mg by mouth once daily 5 mg, Oral, DAILY, First dose on Thu06/30/23 at 2030, Until Discontinued Do not crush or break. Post-op Start: 12-04-2021 End: 12-06-2021 take 10 mg rectal route once daily as needed for constipation 10 mg, Rectal, Daily PRN, constipation, Starting on Thu12/04/21 at 0515 Try oral medications first for constipation. Try rectal medication if oral meds are ineffective, not tolerated, or not ordered. bupivacaine hydrochloride 5 mg/ml injectable solution (1 source) Amide Local Anesthetic Start: 07-08-2023 End: 07-08-2023 BUPivacaine (MARCAINE) 0.5 % injection 150 mg busPIRone hydrochloride 7.5 mg oral tablet (7 sources) Start: 07-08-2023 take 1 tablet by mouth three times daily 15 mg, Oral, 3 TIMES DAILY, First dose on Thu07/08/23 at 1400, Until Discontinued This 15 mg tablet can be split into thirds (5 mg) or halves (7.5 mg) based on the ordered dose. Start: 06-30-2023 take 1 tablet by svetlana three times daily 15 mg, Oral, 3 TIMES DAILY, First dose on Thu06/30/23 at 2100, Until Discontinued This 15 mg tablet can be split into thirds (5 mg) or halves (7.5 mg) based on the ordered dose. Start: 04-03-2023 take 1 tablet by [facility] three times daily busPIRone (BUSPAR) 15 MG tablet Take 15 mg by mouth 3 times daily 0 04/03/2023 Active calcium chloride 0.0014 meq/ ml / potassium chloride 0.004 meq/ml / sodium chloride 0.103 meq/ml / sodium lactate 0.028 meq/ml injectable solution (4 sources) Start: 06-30-2023 End: 06-30-2023 lactated ringers IV soln infusion Start: 12-04-2021 End: 12-06-2021 take 50 mL intravenously every hour 50 mL/hr, Intravenous, Continuous, Starting on Thu12/04/21 at 0520 Start: 12-04-2021 End: 12-04-2021 1,000 mL, Intravenous, at 98 3.6 mL/hr, Once, On Thu12/04/21 at 0520, For 1 dose Start: 05-28-2020 End: 05-28-2020 lactated ringers bolus cefdinir 300 mg oral capsule (20 sources) Cephalosporin Antibacterial Start: 10-01-2021 End: 03-31-2022 take 300 mg by mouth twice daily Cefdinir Discontinued 300 MG PO Twice daily 14 September 30, 2021 11:00pm March 31, 2022 7:57pm Start: 02-02-2021 End: 02-09-2021 take 1 capsule by mouth every twelve hours cefdinir (OMNICEF) 300 MG capsule Take 1 (one) capsule (300 mg total) by mouth every 12 (twelve) hours for 7 days . 14 capsule 0 02/02/2021 02/09/2021 Active Start: 02-02-2021 End: 02-02-2021 cefdinir (OMNICEF) capsule 3 00 mg Start: 09-08-2020 End: 09-18-2020 take 1 capsule by mouth twice daily cefdinir (OMNICEF) 300 MG capsule Take 1 (one) capsule (300 mg total) by mouth 2 (two) times a day for 10 days . 20 capsule 0 09/08/2020 09/18/2020 Active Start: 09-21-2017 End: 10-01-2017 take 300 mg by mouth twice daily Cefdinir Discontinued 300 MG PO Twice daily 20 September 20, 2017 11:00pm September 30, 2017 11:01pm cefpodoxime 200 mg oral tablet (2 sources) Cephalosporin Antibacterial Start: 07-22-2022 End: 07-31-2022 take 1 tablet by mouth every twelve hours cefpodoxime 200 mg oral tablet ; 1 tab(s) orally every 12 hours Quantity: 20 Refills: 0 Ordered: 22-Jul-2022 Sena Ding Start: 22-Jul-2022 End: 31-Jul-2022 Generic Substitution Allowed Comments: Finish all this medication unless otherwise directed by prescriber.Take with food or milk. Comment on above: Finish all this medi cation unless otherwise directed by prescriber.Take with food or milk. cefTRIAXone 1000 mg injection (3 sources) Cephalosporin Antibacterial Start: 02-02-2021 End: 02-02-2021 1,000 mg, Intravenous, at 100 mL/hr, Every 24 hours, First dose on 02/02/21 at 0000 Indication: UTI (mild to moderate) Start: 02-01-2021 End: 02-01-2021 cefTRIAXone (ROCEPHIN) IVPB 1 g (premix) Start: 07-08-2020 End: 07-08-2020 cefTRIAXone (ROCEPHIN) IVPB 1 g (premix) cefTRIAXone (ROCEPHIN) 1 g I VPB in 50 mL D5W minibag (4 sources) Start: 05-28-2020 End: 05-28-2020 cefTRIAXone (ROCEPHIN) 1 g I VPB in 50 mL D5W minibag Start: 07-09-2019 End: 07-09-2019 cefTRIAXone (ROCEPHIN) 1 g I VPB in 50 mL D5W minibag Start: 04-19-2019 1 g, Intraveno us, EVERY 24 HOURS, First dose on Thu04/19/19 at 0000, Until Discontinued Start: 02-28-2019 End: 02-28-2019 cefTRIAXone (ROCEPHIN) 1 g I VPB in 50 mL D5W minibag cefTRIAXone (ROCEPHIN) 1000 mg in sodium chloride (NS) 0.9% 50 mL MBP (1 source) Start: 12-04-2021 End: 12-06-2021 cefTRIAXone (ROCEPHIN) 1000 mg in sodium chloride (NS) 0.9% 50 mL MBP cefTRIAXone (ROCEPHIN) 1000 mg IVPB in 50 mL D5W minibag (1 source) Start: 11-25-2020 End: 11-25-2020 cefTRIAXone (ROCEPHIN) 1000 mg IVPB in 50 mL D5W minibag cefTRIAXone (ROCEPHIN) 2 g IVPB in D5W 50ml minibag (1 source) Start: 04-17-2019 End: 04-18-2019 cefTRIAXone (ROCEPHIN) 2 g IVPB in D5W 50ml minibag celecoxib 200 mg oral capsule (20 sources) Nonsteroidal Anti-inflammatory Drug Start: 12-06-2022 End: 07-01-2023 take 1 capsule by mouth once daily celecoxib (CELEBREX) 200 MG capsule Indications: Acute pain of right shoulder , Neck pain TAKE 1 CAPSULE BY MOUTH DAILY 120 capsule 0 06/15/2023 07/01/2023 Discontinued (Stop Taking at Discharge) Start: 07-28-2022 take 1 capsule by [facility] once daily celecoxib (CELEBREX) 200 MG capsule Indications: Acute pain of right shoulder , Neck pain Take 1 capsule by mouth daily 30 capsule 5 07/28/2022 Active Start: 07-24-2021 End: 12-06-2021 take 200 mg by mouth once daily at mealtime 200 mg, Oral, Daily, First dose on Thu12/04/21 at 0900 Give with Food Start: 06-27-2020 take 1 capsule by [facility] once daily celecoxib (CELEBREX) 200 MG capsule Indications: Neck pain , Acute pain of right shoulder Take 1 capsule by mouth daily 30 capsule 5 06/27/2020 Active Start: 04-23-2020 End: 10-30-2022 take 2 capsules by mouth once daily Celecoxib (Celebrex) 100 mg Capsule Discontinued 200 MG PO Daily April 22, 2020 11:00pm October 30, 2022 2:28pm Start: 04-23-2020 End: 12-04-2021 Start: 04-23-2020 take 1 capsule by [facility] once daily Celecoxib (Celebrex) 100 mg Capsule Active 100 MG PO Daily April 22, 2020 11:00pm Start: 01-12-2020 End: 05-17-2020 take 1 capsule by mouth once daily celecoxib (CELEBREX) 200 MG capsule Indications: Neck pain , Acute pain of right shoulder Take 1 capsule by mouth daily 30 capsule 5 01/12/2020 05/17/2020 Discontinued (Stop Taking at Discharge) Start: 06-28-2019 take 1 capsule by [facility] once daily celecoxib (CELEBREX) 200 MG capsule Take 1 capsule by mouth daily 0 06/28/2019 Active Start: 02-08-2019 End: 04-18-2019 take 1 capsule by mouth once daily celecoxib (CELEBREX) 200 MG capsule Indications: Acute right-sided low back pain without sciatica Take 1 capsule by mouth daily 30 capsule 5 02/08/2019 04/18/2019 Discontinued (LIST CLEANUP) cetirizine hydrochloride 10 mg oral tablet (20 sources) Histamine-1 Receptor Antagonist Start: 06-30-2023 take 5 mg by mouth once daily 5 mg, Oral, DAILY, First dose on Thu06/30/23 at 2030, Until Discontinued Substituted for Loratadine (CLARITIN). Start: 01-18-2014 End: 09-13-2018 take 1 tablet by mouth once daily Cetirizine (Zyrtec) 10 mg Tablet Discontinued 10 MG PO daily July 13, 2017 12:00am September 13, 2018 8:24am Comment on above: Take 10 mg by mouth once daily. ciprofloxacin 500 mg oral tablet (20 sources) Quinolone Antimicrobial Start: 03-31-20 End: 04-13-20 take 1 tablet by mouth every two hours Ciprofloxacin Hcl (Cipro) 500 mg tablet Discontinued 500 MG PO Twice daily 17 04March 30, 2022 11:00pm April 13, 2022 3:24am administer dose at least 2 hrs before/6 hrs after dairy products, calcium, zinc, and/or iron-containing products Start: 07-09-2019 End: 07-16-2019 take 1 tablet by mouth twice daily ciprofloxacin (CIPRO) 500 MG tablet Take 1 tablet by mouth 2 times daily for 7 days 14 tablet 0 07/09/2019 07/16/2019 Active Start: 04-10-2019 End: 04-10-2019 ciprofloxacin (CIPRO) IVPB 4 00 mg Start: 10-14-2017 End: 11-11-2017 take 1 tablet by mouth every two hours Ciprofloxacin Hcl (Cipro) 500 mg tablet Discontinued 500 MG PO Twice daily October 13, 2017 11:00pm November 11, 2017 3:01pm administer dose at least 2 hrs before/6 hrs after dairy products, calcium, zinc, and/or iron-containing products dexamethasone 6 mg oral tablet (3 sources) Corticosteroid Start: 05-06-2020 End: 05-15-2020 take 6 mg by mouth once daily 6 mg, Oral, DAILY, First dose on 05/06/20 at 0900, For 10 doses Start: 05-05-2020 End: 05-05-2020 dexamethasone (DECADRON) inj ection 6 mg Start: 05-01-2020 End: 05-01-2020 dexamethasone (DECADRON) inj ection 6 mg diazePAM 5 mg oral tablet (1 source) Benzodiazepine diazePAM 5 MG Or al for 1 Days Not-Taking diphenhydrAMINE (9 sources) Histamine-1 Receptor Antagonist Start: 02-01-2021 End: 02-01-2021 diphenhydrAMINE (BENADRYL) injection 50 mg Start: 11-25-2020 End: 11-25-2020 diphenhydrAMINE (BENADRYL) i njection 25 mg Start: 10-18-2020 End: 10-18-2020 diphenhydrAMINE (BENADRYL) i njection 50 mg Start: 07-16-2020 End: 07-16-2020 diphenhydrAMINE (BENADRYL) i njection 50 mg Start: 07-08-2020 End: 07-08-2020 diphenhydrAMINE (BENADRYL) i njection 25 mg Start: 03-04-2020 End: 03-04-2020 diphenhydrAMINE (BENADRYL) i njection 25 mg Start: 07-14-2019 End: 07-14-2019 diphenhydrAMINE (BENADRYL) i njection 50 mg Start: 04-17-2019 End: 04-17-2019 diphenhydrAMINE (BENADRYL) i njection 25 mg Start: 04-10-2019 End: 04-10-2019 diphenhydrAMINE (BENADRYL) i njection 50 mg docusate sodium 100 mg oral capsule (20 sources) Start: 04-25-2022 End: 12-06-2022 take 1 capsule by mouth twice daily Docusate Sodium (Colace) 100 mg capsule Discontinued 100 MG PO Twice daily 60 30 August 17, 2022 12:00am December 06, 2022 4:35am Start: 12-04-2021 End: 12-06-2021 take 100 mg by mouth once daily 100 mg, Oral, Daily, First dose on Thu12/04/21 at 0900 [] Hold for loose stools. DO NOT CRUSH OR CHEW. docusate sodium 50 mg / sennosides, group home 8.6 mg oral tablet (1 source) Start: 02-01-2021 End: 02-02-2021 senna-docusate (SENNA-S) 8.6-50 mg per tablet 1 tablet DULoxetine 60 mg delayed release oral capsule (20 sources) Serotonin and Norepinephrine Reuptake Inhibitor Start: 04-03-2023 take 1 capsule by mouth once daily at bedtime DULoxetine (CYMBALTA) 30 MG extended release capsule TAKE 1 CAPSULE BY MOUTH DAILY AT BEDTIME 0 04/03/2023 Active Start: 04-03-2023 take 1 capsule by [facility] once daily 60 mg, Oral, DAILY, First dose on Thu07/08/23 at 1300, Until Discontinued Do not crush or break. May add contents of capsule to apple juice or apple sauce, but not chocolate. Start: 12-17-2022 End: 01-03-2023 take 30 mg by mouth once daily Duloxetine Discontinued 30 MG PO Daily December 16, 2022 11:00pm January 03, 2023 9:11am Start: 12-10-2022 End: 02-01-2023 take 60 mg by mouth once daily Duloxetine Discontinued 60 MG PO Daily January 02, 2023 11:00pm February 01, 2023 10:12am 0.4 ml enoxaparin sodium 100 mg/ml prefilled syringe (4 sources) Low Molecular Weight Heparin Start: 12-04-2021 End: 12-06-2021 inject 40 mg by subcutaneous injection once daily 40 mg, Subcutaneous, Daily, First dose on Thu12/04/21 at 0900 Administer in abdomen unless otherwise directed by prescriber. Notify physician if patient refuses. Indication: VTE Prophylaxis Start: 05-28-2020 enoxaparin (LO VENOX) injection 30 mg Start: 05-05-2020 inject 30 mg by subc utaneous injection twice daily 30 mg, Subcutaneous, 2 TIMES DAILY, First dose on 05/05/20 at 1400 Start: 04-18-2019 inject 40 mg by subc utaneous injection once daily 40 mg, Subcutaneous, DAILY, First dose on Thu04/18/19 at 0900 esomeprazole 20 mg delayed release oral capsule (20 sources) Proton Pump Inhibitor Start: 07-13-2017 End: 09-13-2018 take 1 capsule by mouth once daily Esomeprazole Magnesium (Nexium) 20 mg Capsule,Delayed Release(Dr/Ec) Discontinued 20 MG PO daily July 13, 2017 12:00am September 13, 2018 8:24am Start: 05-23-2015 take 1 capsule by [facility] once daily Nexium 40 mg Cap-EC 40 mg = 1 cap(s), Oral, Daily, Refills(s) 0, Control of stomach acid Start Date: 05/23/15 Status: Ordered 2 ml famotidine 10 mg/ml injection (6 sources) Histamine-2 Receptor Antagonist Start: 10-01-2020 End: 10-01-2020 famotidine (PEPCID) injection 20 mg Start: 09-26-2020 End: 09-26-2020 famotidine (PEPCID) injectio n 20 mg Start: 05-28-2020 famotidine (PE PCID) injection 20 mg Start: 11-20-2019 End: 11-29-2019 take 1 tablet by mouth twice daily Pepcid 20 mg oral tablet ; 1 tab(s) orally 2 times a day Quantity: 20 Refills: 0 Ordered: 20-Nov-2019 Juana Ko Start: 20-Nov-2019 End: 29-Nov-2019 Status: Other Generic Substitution Allowed Comments: It is very important that you take or use this exactly as directed. Do not skip doses or discontinue unless directed by your doctor.Obtain medical advice before taking any non-prescription drugs as some may affect the action of this medication. Comment on above: It is very important that you take or use this exactly as directed. Do not skip doses or discontinue unless directed by your doctor.Obtain medical advice before taking any non-prescription drugs as some may affect the action of this medication. famotidine (PEPCID) 20 mg in sodium chloride (PF) 0.9 % 10 mL injection (1 source) Start: End: famotidine (PEPCID) 20 mg in sodium chloride (PF) 0.9 % 10 mL injection gentamicin (GARAMYCIN) 183.6 mg in dextrose 5 % 100 mL IVPB (1 source) Start: End: gentamicin (GARAMYCIN) 183.6 mg in dextrose 5 % 100 mL IVPB glyBURIDE 5 mg / metFORMIN hydrochloride 500 mg oral tablet (1 source) Biguanide, Sulfonylurea End: take 1 tablet by mouth once daily at breakfast glyBURIDE-metFORMIN 5-500 mg per tablet Take 1 tablet by mouth daily with breakfast. 0 04/15/2015 Discontinued (Course of therapy completed) Comment on above: Take 1 tablet by svetlana th daily with breakfast. 1 ml HYDROmorphone hydrochloride 1 mg/ml cartridge (20 sources) Opioid Agonist Start: End: HYDROmorphone (DILAUDID) injection 0.5 mg Start: 08-24-2022 End: 08-24-2022 HYDROmorphone (DILAUDID) injection 1 mg Start: 08-13-2022 End: 08-13-2022 HYDROmorphone (DILAUDID) injection 1 mg Start: 07-10-2022 End: 07-10-2022 HYDROmorphone (DILAUDID) injection 1 mg Start: 07-10-2022 End: 07-10-2022 HYDROmorphone (DILAUDID) injection 1 mg Start: 12-04-2021 End: 12-06-2021 take 0.5 mg intravenously every four hours as needed HYDROmorphone (DILAUDID) injection 0.5 mg Start: 02-01-2021 End: 02-02-2021 take 0.25-0.5 mg intravenously every three hours as needed HYDROmorphone (DILAUDID) injection 0.25-0.5 mg Start: 02-01-2021 End: 02-01-2021 HYDROmorphone (DILAUDID) injection 1 mg Start: 02-01-2021 End: 02-01-2021 HYDROmorphone (DILAUDID) injection 0.5 mg Start: 11-25-2020 End: 11-25-2020 HYDROmorphone (DILAUDID) injection 1 mg Start: 11-19-2020 End: 11-19-2020 HYDROmorphone (DILAUDID) injection 1 mg Start: 10-16-2020 End: 10-16-2020 HYDROmorphone (DILAUDID) injection 1 mg Start: 10-16-2020 End: 10-16-2020 HYDROmorphone (DILAUDID) injection 0.5 mg Start: 10-01-2020 HYDROmorphone (DILAUDID) injection 1 mg Start: 09-27-2020 End: 09-27-2020 HYDROmorphone (DILAUDID) injection 0.5 mg Start: 09-26-2020 End: 09-26-2020 HYDROmorphone (DILAUDID) injection 1 mg Start: 08-14-2020 End: 08-14-2020 HYDROmorphone (DILAUDID) injection 1 mg Start: 07-16-2020 End: 07-16-2020 HYDROmorphone (DILAUDID) injection 0.5 mg Start: 07-08-2020 End: 07-08-2020 HYDROmorphone (DILAUDID) injection 1 mg Start: 07-08-2020 End: 07-08-2020 HYDROmorphone (DILAUDID) injection 0.5 mg Start: 07-01-2020 End: 07-01-2020 HYDROmorphone (DILAUDID) injection 1 mg Start: 07-01-2020 End: 07-01-2020 HYDROmorphone (DILAUDID) injection 0.5 mg Start: 05-28-2020 End: 05-28-2020 HYDROmorphone (DILAUDID) injection 0.25 mg Start: 05-27-2020 End: 05-28-2020 HYDROmorphone (DILAUDID) injection 0.5 mg Start: 05-08-2020 End: 05-17-2020 HYDROmorphone (DILAUDID) injection 0.5 mg Start: 05-05-2020 End: 05-05-2020 HYDROmorphone (DILAUDID) injection 0.5 mg Start: 04-29-2020 HYDROmorphone (DILAUDID) injection 1 mg Start: 03-04-2020 End: 03-05-2020 HYDROmorphone (DILAUDID) injection 0.5 mg Start: 03-04-2020 End: 03-04-2020 HYDROmorphone (DILAUDID) injection 1 mg Start: 02-19-2020 End: 02-19-2020 HYDROmorphone (DILAUDID) injection 1 mg Start: 02-16-2020 End: 02-17-2020 HYDROmorphone (DILAUDID) injection 1 mg Start: 01-13-2020 HYDROmorphone (DILAUDID) injection 1 mg Start: 01-08-2020 End: 01-08-2020 HYDROmorphone (DILAUDID) injection 1 mg Start: 07-09-2019 End: 07-09-2019 HYDROmorphone (DILAUDID) injection 1 mg Start: 04-21-2019 End: 04-21-2019 HYDROmorphone (DILAUDID) injection 1 mg Start: 04-18-2019 End: 04-20-2019 HYDROmorphone (DILAUDID) injection 0.5 mg Start: 04-10-2019 End: 04-10-2019 HYDROmorphone (DILAUDID) injection 1 mg Start: 04-05-2019 End: 04-05-2019 HYDROmorphone (DILAUDID) injection 1 mg Start: 02-28-2019 End: 02-28-2019 HYDROmorphone (DILAUDID) injection 1 mg hydrOXYzine pamoate 25 mg oral capsule (20 sources) Antihistamine Start: 07-08-2023 take 25 mg by mouth three times daily as needed 25 mg, Oral, 3 TIMES DAILY PRN, Starting on Thu07/08/23 at 1242, Until Discontinued, Anxiety Start: 02-05-2023 take 1 capsule by [facility] every six hours as needed for anxiety hydrOXYzine pamoate (VISTARIL) 50 MG capsule Indications: Anxiety TAKE 1 CAPSULE BY MOUTH EVERY 6 HOURS NEEDED FOR ANXIETY 30 capsule 2 02/05/2023 Active Start: 01-18-2023 take 50 mg by mouth three times daily Hydroxyzine Pamoate Active 50 MG PO Three times daily January 17, 2023 11:00pm Start: 12-10-2022 End: 01-18-2023 take 50 mg by mouth every six hours Hydroxyzine Pamoate Discontinued 50 MG PO Q6H 60 December 09, 2022 11:00pm January 18, 2023 3:08am Start: 05-22-2020 End: 06-01-2020 take 1 capsule by mouth three times daily Vistaril 50 mg Cap 50 mg, Oral, TID, Refills(s) 0 Start Date: 05/26/20 Status: Ordered Start: 05-09-2020 End: 03-31-2022 take 1 capsule by mouth three times daily Hydroxyzine Pamoate (Vistaril) 25 mg Capsule Discontinued 25 MG PO Three times daily May 21, 2020 12:00am March 31, 2022 7:57pm hyoscyamine sulfate 0.125 mg sublingual tablet (3 sources) Start: 03-29-2023 End: 03-29-2023 Hyoscyamine Sulfate Disconti nued MG March 28, 2023 11:00pm March 29, 2023 3:31am Hyoscyamine Sulf ate 0.125 MG Sublingual for 5 Days Not-Taking ibuprofen 800 mg oral tablet (20 sources) Nonsteroidal Anti-inflammatory Drug Start: 12-06-2022 End: 12-14-2022 take 800 mg by mouth once daily at bedtime Ibuprofen Discontinued 800 MG PO Daily at bedtime December 05, 2022 11:00pm December 13, 2022 11:49pm Start: 11-10-2022 End: 07-01-2023 take 1 tablet by mouth three times daily at mealtime ibuprofen (ADVIL;MOTRIN) 800 MG tablet Indications: Acute pain of right shoulder TAKE 1 TABLET BY MOUTH THREE TIMES DAILY WITH MEALS 90 tablet 0 11/10/2022 07/01/2023 Discontinued (Stop Taking at Discharge) Start: 08-02-2022 End: 10-30-2022 Start: 07-28-2022 End: 10-30-2022 take 800 mg by mouth three times daily Ibuprofen Discontinued 800 MG PO Three times daily August 02, 2022 12:00am October 30, 2022 2:28pm Start: 05-20-2022 take 1 tablet by svetlana th three times daily at mealtime ibuprofen (ADVIL;MOTRIN) 800 MG tablet Indications: Acute pain of right shoulder TAKE 1 TABLET BY MOUTH THREE TIMES DAILY WITH MEALS 90 tablet 0 05/20/2022 Active Start: 04-25-2022 take 1 tablet by svetlana th every eight hours as needed for pain ibuprofen 600 mg Tab 600 mg = 1 tab(s), Oral, q8hr, PRN as needed for pain, with food or milk, # 60 tab(s), Refills(s) 0, Pharmacy: [facility] #[id number], 170.2, cm, 04/21/22 21:37:00 EDT, Height/Length Dosing, 109, kg, 04/21/22 21:37:00 EDT, Weight Dosing Start Date: 04/25/22 Status: Ordered Start: 04-15-2022 take 800 mg by mouth three times daily as needed for pain ibuprofen 800 mg, Oral, TID, PRN as needed for pain, Refills(s) 0 Start Date: 04/15/22 Status: Ordered Start: 03-31-2022 End: 04-13-2022 take 800 mg by mouth three times daily Ibuprofen Discontinued 800 MG PO Three times daily March 30, 2022 11:00pm April 13, 2022 3:24am Start: 03-31-2022 End: 04-13-2022 Start: 05-12-2020 take 1 tablet by svetlana th every six hours as needed for pain ibuprofen (ADVIL;MOTRIN) 600 MG tablet Take 1 tablet by mouth every 6 hours as needed for Pain or Fever 120 tablet 3 05/17/2020 Active Start: 04-26-2019 take 1 tablet by svetlana th every eight hours as needed for pain ibuprofen (ADVIL;MOTRIN) 800 MG tablet Take 1 tablet by mouth every 8 hours as needed for Pain 20 tablet 0 04/26/2019 Active Start: 07-06-2015 End: 04-30-2020 ibuprofen (ADVIL;MOTRIN) tab let 600 mg Ibuprofen Active Insulin Degludec (Tresiba Flextouch U-100) 100 unit/mL (3 mL) Insulin Pen (15 sources) Start: 09-13-2017 End: 12-06-2022 Insulin Degludec (Tresiba Flextouch U-100) 100 unit/mL (3 mL) Insulin Pen Discontinued 80 UNIT SUBCUT Daily at bedtime September 12, 2017 11:00pm December 06, 2022 4:34am Start: 09-13-2017 End: 12-06-2022 Insulin Degludec (Tresiba Flextouch U-100) 100 unit/mL (3 mL) Insulin Pen Discontinued 80 UNIT SUBCUT Daily at bedtime September 13, 2017 12:00am December 06, 2022 5:34am Start: 09-13-2017 Insulin Deglud ec (Tresiba Flextouch U-100) 100 unit/mL (3 mL) Insulin Pen Active 80 UNIT SUBCUT Daily at bedtime September 13, 2017 12:00am Start: 09-13-2017 Insulin Deglud ec (Tresiba Flextouch U-100) 100 unit/mL (3 mL) Insulin Pen Active 80 UNIT SUBCUT Daily at bedtime September 12, 2017 11:00pm Start: 09-13-2017 inject 100 [IU] by s ubcutaneous injection once daily at bedtime Insulin Degludec (Tresiba Flextouch U-100) 100 unit/mL (3 mL) Insulin Pen Active 100 UNIT SUBCUT Daily at bedtime September 12, 2017 11:00pm Start: 09-13-2017 inject 100 [IU] by s ubcutaneous injection once daily at bedtime Insulin Degludec (Tresiba Flextouch U-100) 100 unit/mL (3 mL) Insulin Pen Active 100 UNIT SUBCUT Daily at bedtime September 13, 2017 12:00am Insulin Degludec (Tresiba Flextouch U-100) 100 unit/mL (3 mL) insulin pen (3 sources) Start: 12-06-2022 End: 01-03-2023 Insulin Degludec (Tresiba Flextouch U-100) 100 unit/mL (3 mL) insulin pen Discontinued 40 UNIT SUBCUT Daily December 05, 2022 11:00pm January 03, 2023 9:11am Start: 12-06-2022 Insulin Deglud ec (Tresiba Flextouch U-100) 100 unit/mL (3 mL) insulin pen Active 40 UNIT SUBCUT Daily December 06, 2022 12:00am 3 ml insulin glargine 100 unt/ml pen injector (20 sources) Insulin Analog Start: 01-03-2023 End: 07-07-2023 Insulin Glargine (Lantus Solostar U-100 Insulin) 100 unit/mL (3 mL) Insulin Pen Discontinued 32 UNITS SUBCUT Daily 9.6 30 January 02, 2023 11:00pm July 07, 2023 3:22pm Start: 12-04-2021 End: 12-06-2021 80 Units, Subcutaneous, Nigh tly, First dose on Thu12/04/21 at 2100 Do not hold basal insulin without notifying physician. If patient NPO and BG < 100 before procedure, administer half of the glargine insulin (Lantus) dose; if BG is >100 administer full dose. Do not mix with other insulins in a syringe. Do NOT hold basal insulin without notifying physician Start: 02-01-2021 End: 02-02-2021 insulin glargine (LANTUS) injection 22 Units Start: 01-31-2021 End: 03-02-2021 insulin glargine (Lantus Fly ostar U-100 Insulin) 100 unit/mL (3 mL) InPn Inject 22 (twenty two) Units under the skin nightly . 15 mL 0 01/31/2021 Active Start: 05-28-2020 inject 100 [IU] by s ubcutaneous injection once daily 100 Units, Subcutaneous, DAILY, First dose on 05/28/20 at 0900 Start: 05-18-2020 End: 05-28-2020 insulin glargine (LANTUS FLY OSTAR) 100 UNIT/ML injection pen Inject up to 120 units nightly 5 pen 3 05/18/2020 05/28/2020 Discontinued (Cost of medication) Start: 05-18-2020 End: 05-18-2020 insulin glargine (LANTUS) 10 0 UNIT/ML injection vial Inject 80 Units into the skin nightly 1 vial 3 05/18/2020 05/18/2020 Discontinued (Stop Taking at Discharge) Start: 05-11-2020 insulin glargi ne (LANTUS) injection vial 80 Units Start: 05-10-2020 End: 05-10-2020 insulin glargine (LANTUS) injection vial 40 Units Start: 05-07-2020 End: 05-10-2020 insulin glargine (LANTUS) injection vial 50 Units Start: 05-06-2020 End: 05-06-2020 insulin glargine (LANTUS) injection vial 120 Units Start: 07-13-2017 End: 09-13-2017 inject 70 [IU] by subcutaneous injection once daily Insulin Glargine (Lantus) 100 unit/mL Solution Discontinued 70 UNITS SUBCUT daily July 13, 2017 12:00am September 13, 2017 6:26pm Start: 07-13-2017 End: 09-13-2017 Start: 01-25-2017 inject 70 [IU] by [place] bcutaneous injection at bedtime Lantus 70 unit(s), SubCutaneous, Bedtime, Refills(s) 0, High blood sugar Start Date: 01/25/17 Status: Ordered Lantus SoloStar 100 UNIT/ML Subcutaneous for 46 Days Not-Taking INSULIN GLARGINE SC Inject 30 Units under the skin. 0 Active insulin regular (HUMULIN R;NOVOLIN R) 100 Units in sodium chloride 0.9 % 100 mL infusion (1 source) Start: 05-06-2020 End: 05-07-2020 insulin regular (HUMULIN R;NOVOLIN R) 100 Units in sodium chloride 0.9 % 100 mL infusion Iopamidol (1 source) Radiographic Contrast Agent Start: 04-21-2019 End: 04-21-2019 iopamidol (ISOVUE-300) 61 % injection 100 mL iopamidol (ISOVUE-300) 61 % injection 100 mL (4 sources) Start: 09-26-2020 End: 09-26-2020 iopamidol (ISOVUE-300) 61 % injection 100 mL Start: 05-27-2020 End: 05-28-2020 iopamidol (ISOVUE-300) 61 % injection 100 mL Start: 05-05-2020 End: 05-05-2020 iopamidol (ISOVUE-300) 61 % injection 100 mL Start: 01-14-2020 End: 01-14-2020 iopamidol (ISOVUE-300) 61 % injection 100 mL iopamidoL (ISOVUE-370) 76 % injection 75 mL (1 source) Start: 12-04-2021 End: 12-04-2021 iopamidoL (ISOVUE-370) 76 % injection 75 mL levoFLOXacin 750 mg oral tablet (20 sources) Quinolone Antimicrobial Start: 08-02-2022 End: 09-21-2022 take 750 mg by mouth once daily Levofloxacin Discontinued 750 MG PO Daily 7 August 29, 2022 12:00am September 21, 2022 8:18pm Start: 12-21-2019 End: 02-19-2020 take 1 tablet by mouth every twenty-four hours Levofloxacin (Levaquin) 500 mg tablet Discontinued 500 MG PO Q24H 7 December 20, 2019 11:00pm February 19, 2020 3:08pm Start: 04-22-2019 End: 04-29-2019 take 1 tablet by mouth once daily levofloxacin (LEVAQU IN) 750 MG tablet Take 1 tablet by mouth daily for 7 days 7 tablet 0 04/22/2019 04/29/2019 Active Start: 04-15-2019 take 1 tablet by mouth once da kinjal Levaquin 500 mg oral tablet ; 1 tab(s) orally once a day Quantity: 5 Refills: 0 Ordered: 15-Apr-2019 Evy Brady Start: 15-Apr-2019 Status: Other Generic Substitution Allowed Comments: Avoid prolonged or excessive exposure to direct and/or artificial sunlight while taking this medication.Do not take dairy products, antacids, or iron preparations within one hour of this medication.Finish all this medication unless otherwise directed by prescriber.May cause drowsiness or dizziness.Medication should be taken with plenty of water. Comment on above: Avoid prolonged or e xcessive exposure to direct and/or artificial sunlight while taking this medication.Do not take dairy products, antacids, or iron preparations within one hour of this medication.Finish all this medication unless otherwise directed by prescriber.May cause drowsiness or dizziness.Medication should be taken with plenty of water. loperamide hydrochloride 2 mg oral capsule (1 source) Opioid Agonist Start: 05-01-2020 End: 05-01-2020 loperamide (IMODIUM) capsule 4 mg 1 ml LORazepam 2 mg/ml injection (3 sources) Benzodiazepine Start: 05-25-2020 End: 05-25-2020 LORazepam (ATIVAN) injection 1 mg Start: 02-17-2020 End: 02-17-2020 LORazepam (ATIVAN) injection 2 mg Start: 07-14-2019 End: 07-14-2019 LORazepam (ATIVAN) injection 1 mg magnesium hydroxide 80 mg/ml oral suspension (3 sources) Start: 06-30-2023 take 30 mL by mouth once daily as needed 30 mL, Oral, DAILY PRN, Starting on Thu06/30/23 at 2002, Until Discontinued, Constipation First line therapy for constipation. Post-op Start: 12-04-2021 End: 12-06-2021 take 2400 mg by mouth once daily as needed for constipation 2,400 mg (30 mL), Oral, Daily PRN, constipation, Starting on Thu12/04/21 at 0515 If no bowel movement in 24 hours after Sennosides (SENNA) administration. Start: 04-18-2019 take 30 mL by mouth once daily as needed for constipation 30 mL, Oral, DAILY PRN, Constipation, Starting Thu04/18/19 at 0122 First line therapy for constipation. 50 ml magnesium sulfate 40 mg/ml injection (1 source) Start: 12-04-2021 End: 12-04-2021 2 g, Intravenous, at 50 mL/hr, Once, On Thu12/04/21 at 0600, For 1 dose melatonin 5 mg oral tablet (1 source) Start: 12-04-2021 End: 12-06-2021 take 5 mg by mouth once daily as needed for sleep 5 mg, Oral, Nightly PRN, Sleep, Starting on Thu12/04/21 at 0515 metFORMIN hydrochloride 500 mg oral tablet (20 sources) Biguanide Start: 07-13-2017 End: 03-31-2022 Start: 07-13-2017 End: 03-31-2022 take 1 tablet by mouth once daily at breakfast metFORMIN (GLUCOPHAGE) 500 MG tablet Take 1 tablet by mouth daily (with breakfast) 90 tablet 1 06/07/2020 Active Start: 03-03-2017 End: 03-31-2022 take 500 mg by mouth twice daily Metformin Discontinue d 500 MG PO Twice daily July 13, 2017 12:00am March 31, 2022 7:57pm methylPREDNISolone 125 mg injection (10 sources) Corticosteroid Start: 05-27-2020 End: 05-27-2020 methylPREDNISolone sodium (SOLU-MEDROL) injection 125 mg Start: 02-16-2020 End: 05-18-2020 methylPREDNISolone (MEDROL D OSEPACK) 4 MG tablet On days 1-6 take as directed on package for first 6-day course. On days 7-12 take as directed on (second) package for (second) 6-day course. 42 tablet 0 02/16/2020 05/18/2020 Discontinued (Stop Taking at Discharge) Start: 02-16-2020 methylPREDNISo lone (MEDROL DOSEPACK) 4 MG tablet On days 1-6 take as directed on package for first 6-day course. On days 7-12 take as directed on (second) package for (second) 6-day course. 42 tablet 0 02/16/2020 Active metoprolol tartrate 50 mg oral tablet (20 sources) beta-Adrenergic Inga Start: 07-08-2023 take 50 mg by mouth twice daily 50 mg, Oral, 2 TIMES DAILY, First dose on Thu07/08/23 at 1300, Until Discontinued Start: 06-30-2023 take 50 mg by mouth twice leland y 50 mg, Oral, 2 TIMES DAILY, First dose on Thu06/30/23 at 2100, Until Discontinued Hold for SBP less than 90. Hold for HR less than 65 Start: 06-07-2023 End: 06-07-2023 take 1 tablet by mouth once metoprolol 50 mg ER Tab 50 mg = 1 tab(s), Tab-ER, Oral, Once, Stop date 06/07/23 3:27:55 AM EST, STAT, Start date 06/07/23 2:43:00 AM EST, 06/07/23 2:43:00 EST Start Date: 06/07/23 Stop Date: 06/07/23 Status: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 Episodic Other nutritional; endocrine; and metabolic disorders (20 sources) Obesity; Translations: [Obesity, unspecified] Onset: 3 08-01-2014 Chronic Other nutritional; endocrine; and metabolic disorders (2 sources) Severe obesity; Translations: [Morbid (severe) obesity due to excess calories] Onset: 3 07-08-2023 Chronic Other skin disorders (1 source) Ingrowing nail Episodic Other upper respiratory disease (1 source) Chronic pharyngitis; Translations: [Chronic pharyngitis] Chronic Other upper respiratory infections (20 sources) Recurrent sinusitis; Translations: [Chronic sinusitis, unspecified] Onset: 9 Resolved: 2 03-07-2019 Chronic Other upper respiratory infections (9 sources) Acute upper respiratory infection; Translations: [Acute upper respiratory infection, unspecified] Onset: 2 Resolved: 2 Episodic Pneumonia (except that caused by tuberculosis or sexually transmitted disease) (2 sources) Pneumonia due to other virus not elsewhere classified; Translations: [Pneumonia due to COVID-19 virus] Episodic Poisoning by nonmedicinal substances (3 sources) Toxic effect of venom; Translations: [Spider bite] Episodic Residual codes; unclassified (1 source) Obstructive sleep apnea syndrome; Translations: [Obstructive sleep apnea] Chronic Residual codes; unclassified (19 sources) Chronic pain; Translations: [Chronic pain syndrome] Onset: 0 05-12-2020 Chronic Residual codes; unclassified (1 source) Left against medical advice; Translations: [Procedure and treatment not carried out because of patient's decision for unspecified reasons] Episodic Residual codes; unclassified (1 source) Acquired absence of both cervix and uterus; Translations: [Acquired absence of both cervix and uterus] Onset: 3 Episodic Residual codes; unclassified (2 sources) Pain; Translations: [Pain, unspecified] Onset: 3 Episodic Respiratory failure; insufficiency; arrest (adult) (20 sources) Chronic hypoxemic respiratory failure; Translations: [Chronic respiratory failure with hypoxia] 05-23-2020 Chronic Septicemia (except in labor) (1 source) Sepsis, unspecified organism; Translations: [SEPSIS UNSPECIFIED ORGANISM] Onset: 2 Episodic Spondylosis; intervertebral disc disorders; other back problems (1 source) Cervical spondylosis without myelopathy; Translations: [Spondylosis without myelopathy or radiculopathy, cervical region] Chronic Spondylosis; intervertebral disc disorders; other back problems (20 sources) Torticollis; Translations: [Chronic low back pain] Onset: 5 11-27-2014 Episodic Superficial injury; contusion (20 sources) Contusion of shoulder region; Translations: [Contusion of right shoulder, initial encounter] 12-06-2021 Episodic Thyroid disorders (9 sources) Hypothyroidism; Translations: [Hypothyroidism, unspecified] Onset: 3 01-18-2023 Chronic Unclassified (20 sources) 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; Translations: [Long-term current use of insulin] Onset: 9 03-07-2019 Unclassified (2 sources) Fever, unspecified; Translations: [Fever, unspecified] Onset: 9 Unclassified (1 source) Other residential (current) drug therapy Onset: 9 Unclassified (1 source) Acute cystitis without hematuria Onset: 9 Unclassified (1 source) Pure hypercholesterolemia, unspecified Onset: 9 Unclassified (2 sources) RT ABDOMINAL PAIN 10-24-2020 Comment on above: RT ABDOMINAL PAIN Unclassified (2 sources) RT FLANK PAIN 06-10-2021 Comment on above: RT FLANK PAIN Unclassified (1 source) Flank pain, acute 06-10-2021 Unclassified (1 source) Patient encounter status; Translations: [Encounter for screening for COVID-19] Unclassified (1 source) CONTACT W/AND (SUSP) EXPOS COVID-19; Translations: [CONTACT W/AND (SUSP) EXPOS COVID-19] Onset: 2 Unclassified (2 sources) FLANK PAIN VOMITING 07-21-2022 Comment on above: FLANK PAIN VOMITING Unclassified (4 sources) RIGHT FLANK PAIN AND VOMITING 08-13-2022 Comment on above: RIGHT FLANK PAIN AND VOMITING Unclassified (1 source) Personal history of COVID-19; Translations: [Personal history of COVID-19] Onset: 3 Unclassified (1 source) Flank pain, vomiting Onset: 3 Unclassified (1 source) Ankylosis, right shoulder; Translations: [Ankylosis, right shoulder] Onset: 3 Unclassified (1 source) Low back pain, unspecified; Translations: [Low back pain, unspecified] Onset: 3 Unclassified (1 source) Strain of muscle(s) and tendon(s) of the rotator cuff of right shoulder, subsequent encounter; Translations: [Strain of muscle(s) and tendon(s) of the rotator cuff of right shoulder, subsequent encounter] Onset: 3 Urinary tract infections (20 sources) Chronic cystitis; Translations: [Other chronic cystitis with hematuria] 12-09-2018 Chronic Urinary tract infections (1 source) Urinary tract infections Onset: 8 Past or Other Problems Problem Classification Problem Date Documented Da te Episodic/Chronic Abdominal hernia (20 sources) Umbilical hernia; Translations: [Umbilical hernia without obstruction or gangrene] Onset: 02-08-2018 02-12-2018 Episodic Complication of device; implant or graft (1 source) Catheter-associated urinary tract infection; Translations: [Urinary tract infection associated with catheterization of urinary tract, unspecified indwelling urinary catheter type, subsequent encounter] Episodic Diabetes mellitus without complication (20 sources) Acute hyperglycemia; Translations: [Hyperglycemia] Onset: 04-24-2011 03-07-2019 Episodic Genitourinary symptoms and ill-defined conditions (20 sources) Blood in urine; Translations: [Hematuria, unspecified] Onset: 02-01-2021 Episodic Headache; including migraine (20 sources) Headache; Translations: [Acute headache] Onset: 04-24-2011 03-29-2015 Episodic Malaise and fatigue (20 sources) Fatigue; Translations: [Exhaustion due to exposure, initial encounter] Onset: 05-12-2020 05-12-2020 Episodic Mood disorders (11 sources) Mood disorder with depressive features due to general medical condition; Translations: [Mood disorder due to known physiological condition with depressive features] Onset: 12-06-2022 12-06-2022 Episodic Nonspecific chest pain (20 sources) Chest pain; Translations: [Anterior chest wall pain] Onset: 11-21-2012 08-01-2014 Episodic Other aftercare (12 sources) Long-term current use of insulin; Translations: [jail (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 of insulin] Onset: 09-18-2018 03-07-2019 Episodic Other and unspecified benign neoplasm (20 sources) Tubular adenoma ; Translations: [Benign neoplasm, unspecified site] Onset: 10-04-2014 10-04-2014 Episodic Other bone disease and musculoskeletal deformities (18 sources) Costal chondritis; Translations: [Chondrocostal junction syndrome [Tietze]] Onset: 05-12-2020 05-12-2020 Episodic Other circulatory disease (2 sources) Hypotension, unspecified; Translations: [Hypotension, unspecified] Onset: 12-03-2021 Episodic Other connective tissue disease (20 sources) Muscle pain; Translations: [Myalgia, unspecified site] Onset: 04-19-2019 04-19-2019 Episodic Other disorders of stomach and duodenum (1 source) Gastroparesis; Translations: [Gastroparesis] Onset: 01-18-2023 Episodic Other gastrointestinal disorders (20 sources) Disorder of digestive tract; Translations: [Acquired absence of other specified parts of digestive tract] Onset: 09-18-2018 03-07-2019 Episodic Other lower respiratory disease (18 sources) Anterior pleuritic pain; Translations: [Pleurodynia] Onset: 05-12-2020 05-12-2020 Episodic Other non-traumatic joint disorders (1 source) Pain in left knee; Translations: [Pain in left knee] Onset: 06-11-2015 06-11-2015 Episodic Other non-traumatic joint disorders (20 sources) Pain in right shoulder; Translations: [Acute pain of right shoulder] Onset: 12-06-2022 10-28-2022 Episodic Other non-traumatic joint disorders (1 source) Pain in unspecified shoulder; Translations: [Pain in unspecified shoulder] Onset: 10-28-2022 Episodic Other screening for suspected conditions (not mental disorders or infectious disease) (5 sources) CT of abdomen abnormal; Translations: [D-dimer above reference range] Onset: 12-03-2021 Episodic Residual codes; unclassified (13 sources) Acquired absence of other specified parts of digestive tract; Translations: [Disorder of digestive tract] Onset: 09-18-2018 03-07-2019 Episodic Residual codes; unclassified (20 sources) Finding related to substance use; Translations: [Opioid use, unspecified, uncomplicated] Onset: 12-30-2017 01-05-2018 Episodic Sprains and strains (2 sources) Strain of muscle, fascia and tendon at neck level, initial encounter; Translations: [Strain of muscle, fascia and tendon at neck level, initial encounter] Onset: 07-09-2021 Episodic Substance-related disorders (2 sources) Opioid withdrawal; Translations: [Opioid dependence with withdrawal] Onset: 07-24-2021 Resolved: 07-24-2021 07-24-2021 Chronic Substance-related disorders (16 sources) Narcotic drug user; Translations: [Opioid use, unspecified, uncomplicated] Onset: 12-30-2017 Resolved: 07-24-2021 05-12-2020 Episodic Suicide and intentional self-inflicted injury (16 sources) Suicidal thoughts; Translations: [Suicidal ideations] Onset: 03-29-2023 12-06-2022 Episodic Syncope (4 sources) Syncope and collapse; Translations: [SYNCOPE AND COLLAPSE] Onset: 10-11-2020 Episodic Unclassified (20 sources) Past history of procedure; Translations: [History of renal stent] 02-05-2021 Urinary tract infections (20 sources) Urinary tract infectious disease; Translations: [Acute cystitis] Onset: 12-27-2017 Resolved: 05-17-2019 01-29-2018 Episodic Viral infection (20 sources) Other specified viral infection; Translations: [Disease caused by 2019-nCoV] Onset: 05-05-2020 05-12-2020 Episodic NEGATED: Highlighted row has not occurred!Residual codes; unclassified (2 sources) Disease Episodic Results Test Name Value Interpretation Reference Range Facility CHEMISTRYOrdered By: Lab ROP User on 07-12-2023 Glucose [Mass/Vol] 308 mg/dL High 55 - 99 mg/dL [facility] [place] Subsection Comment on above: Result Comment: Joselyn jennings RN/ POC Device SN [id number] Invalid Interpretation Code FT POC Subsection POC User ID [id number] 1 Invalid Interpretation Code FT POC Subsection POC Username DORINA SPRAGUE Invalid Interpretation Code [facility] [place] Subsection CHEMISTRYOrdered By: Lab ROP User on 07-11-2023 Glucose [Mass/Vol] 411 mg/dL High 55 - 99 mg/dL [facility] POC Subsection POC Device SN [id number] Invalid Interpretation Code FT POC Subsection POC User ID [id number] 1 Invalid Interpretation Code FT POC Subsection POC Username MIGUELITO YANCEY Invalid Interpretation Code [facility] [place] Subsection CHEMISTRYOrdered By: SYSTEM SYSTEM on 07-11-2023 Albumin [Mass/Vol] 3.9 g/dL Normal 3.3 - 5.0 gm/dL [facility] Albumin/Globulin [Mass ratio] 1.2 {ratio} Normal 1.1 - 2.2 [facility] Alk Phos 84 [iU]/d Normal 21 - 98 Int._Unit/ L [facility] ALT 13 [iU]/d Normal 6 - 46 Int._Unit/ L [facility] Anion gap [Moles/Vol] 12 mmol/L Normal 6 - 16 mEq/L [facility] AST 12 [iU]/d Normal 5 - 43 Int._Unit/ L [facility] Bili Direct 0.0 mg/dL Normal 0.0 - 0.4 mg/dL [facility] Bili Indirect 0.3 mg/dL Normal 0.1 - 0.9 mg/dL [facility] Bili Total 0.3 mg/dL Normal 0.0 - 1.1 mg/dL [facility] Calcium [Mass/Vol] 9.2 mg/dL Normal 8.9 - 11. 1 mg/dL [facility] Chloride [Moles/Vol] 99 mmol/L Low 101 - 1 11 mmol/L [facility] CO2 [Moles/Vol] 29 mmol/L Normal 21 - 31 mmol/L [facility] Creatinine [Mass/Vol] 0.8 mg/dL Normal 0.5 - 1.3 mg/dL [facility] eGFR mL/min/1.73 m2 Normal >=59mL/min /1.73 m2 [facility] Globulin (S) [Mass/Vol] 3.2 g/dL Normal 1.4 - 4.0 gm/dL [facility] Glucose [Mass/Vol] 463 mg/dL Invalid Interpretation Code 55 - 199 mg/dL [facility] Comment on above: Result Comment: Crit ical Result Verified by Repeat Analysis Critical Result [id number] Called to and read back by: DR MUHAMMAD at: 07/11/2023 22:52:58 by:BAB Lipase Lvl 14 unit/L Normal 13 - 58 unit/L [facility] Potassium [Moles/Vol] 4.4 mmol/L Normal 3.5 - 5.3 mmol/L [facility] Protein [Mass/Vol] 7.1 g/dL Normal 6.0 - 7.8 gm/dL [facility] Sodium [Moles/Vol] 136 mmol/L Normal 135 - 145 mmol/L [facility] Urea nitrogen [Mass/Vol] 16 mg/dL Normal 5 - 21 mg/dL [facility] Urea nitrogen/Creatinine [Mass ratio] 20 mg/mg Normal 10 - 20 [facility] HEMATOLOGYOrdered By: SYSTEM SYSTEM on 07-11-2023 Basophils/100 WBC (Bld) 1.4 % Normal 0.0 - 2.0 % [facility] Basophils/Leukocytes Auto (Bld) [Pure # fraction] 0.1 E9/L Normal 0.0 - 0.2 E9/L [facility] Eosinophils/100 WBC (Bld) 3.6 % Normal 0.0 - 8.0 % [facility] Eosinophils/Leukocytes Auto (Bld) [Pure # fraction] 0.2 E9/L Normal 0.0 - 0.5 E9/L [facility] Lymphocytes/100 WBC (Bld) 26.9 % Normal 14.0 - 50.0 % [facility] Lymphocytes/Leukocytes Auto (Bld) [Pure # fraction] 1.7 E9/L Normal 1.0 - 4.0 E9/L [facility] Monocytes/100 WBC (Bld) 7.0 % Normal 4.0 - 14.0 % [facility] Monocytes/Leukocytes Auto (Bld) [Pure # fraction] 0.4 E9/L Normal 0.2 - 1.0 E9/L [facility] Neutrophils/100 WBC (Bld) 61.1 % Normal 36.0 - 75.0 % [facility] Neutrophils/Leukocytes Auto (Bld) [Pure # fraction] 3.9 E9/L Normal 2.0 - 7.5 E9/L [facility] HEMATOLOGYOrdered By: Janice Carpenter on 07-11-2023 Erythrocyte distribution width (RBC) [Ratio] 13.6 % Normal 10.9 - 14.2 % [facility] Hematocrit (Bld) [Volume fraction] 38.3 % Normal 34.0 - 46.0 % [facility] Hemoglobin (Bld) [Mass/Vol] 12.7 g/dL Normal 12.0 - 16.0 gm/dL [facility] MCH (RBC) [Entitic mass] 28.7 pg Normal 27.0 - 34.0 pg [facility] MCHC (RBC) [Mass/Vol] 33.2 g/dL Normal 31.4 - 36.0 gm/dL [facility] MCV (RBC) [Entitic vol] 86.5 fL Normal 80.0 - 100.0 fL [facility] Platelet mean volume (Bld) [Entitic vol] 7.7 fL Normal 6.4 - 10.8 fL [facility] Platelets (Bld) [#/Vol] 216.0 E9/L Normal 150.0 - 500.0 E9/L [facility] RBC (Bld) [#/Vol] 4.4 E12/L Normal 4.3 - 5.9 E12/L [facility] WBC corrected for nucl RBC Auto (Bld) [#/Vol] 6.4 E9/L Normal 4.0 - 11.0 E9/L [facility] URINALYSISOrdered By: Mark Kate on 07-11-2023 Bacteria LM Ql (Urine sed) Trace /HPF Normal Trace/HPF [facility] Bilirubin Ql (U) Negative (07/11/23 10:22 PM) Normal Negative [facility] Clarity (U) Clear (07/11/23 10:22 PM) Normal Clear [facility] Color (U) Yellow (07/11/23 10:22 PM) Normal Yellow [facility] Epithelial cells.squamous LM.HPF (Urine sed) [#/Area] 0-2 /HPF Normal 0-2/HPF [facility] Aut o SS Glucose Test strip (U) [Mass/Vol] 3+ *ABN* (07/11/23 10:22 PM) Invalid Interpretation Code Negative [facility] Hemoglobin Ql (U) 3+ *ABN* (07/11/23 10:22 PM) Invalid Interpretation Code Negative [facility] Ketones (U) [Mass/Vol] Negative (07/11/23 10:22 PM) Normal Negative [facility] UA Auto SS [place].plasma/[place] .RBC (Bld) [Mass ratio] 4-20 /HPF Normal 0-3/HPF [facility] Nitrite Ql (U) Negative (07/11/23 10:22 PM) Normal Negative [facility] pH (U) 6.0 *NA* (07/11/23 10:22 PM) Invalid Interpretation Code 5.0 - 9.0 [facility] Protein (U) [Mass/Vol] Negative (07/11/23 10:22 PM) Normal Negative [facility] SS Specific gravity (U) [Rel density] 1.010 *NA* (07/11/23 10:22 PM) Invalid Interpretation Code 1.005 - 1.030 [facility] UA Spec Desc Clean Catch (07/11/23 10:22 PM) Normal [facility] SS Urobilinogen Qn (U) [id number] {Diaz'U}/dL Normal 0.0 - 1.0 EU/dL [facility] WBC Auto Ql (U) Negative (07/11/23 10:22 PM) Normal Negative [facility] SS WBC LM.HPF (Urine sed) [#/Area] 0-5 /HPF Normal 0-5/HPF [facility] Auto SS POCT Glucoseon 07-09-2023 Glucose [Mass/Vol] 392 mg/dL Critically high 70-99 M [facility] Comment on above: Performed By: #### U NEYMAR #### [facility] [address] [place] [address] POC Performed on ACCU-CHEK Normal [facility] Comment on above: Performed By: #### U NEYMAR #### [facility] [address] [place] [address] Glucose [Mass/Vol] 392 mg/dL High 70 - 99 mg/dl [facility] Interpretation and review of laboratory results Abnormal [facility] Performed on ACCU-CHEK [facility] Glucose [Mass/Vol] 325 mg/dL Critically high 70-99 M [facility] Comment on above: Performed By: #### U NEYMAR #### [facility] [address] [place] [address] POC Performed on ACCU-CHEK Normal [facility] Comment on above: Performed By: #### U NEYMAR #### [facility] [address] [place] [address] Glucose [Mass/Vol] 325 mg/dL High 70 - 99 mg/dl [facility] Interpretation and review of laboratory results Abnormal [facility] Performed on ACCU-CHEK [facility] MR Cervical spine WO krystian goodman 07-08-2023 1. Status post anter ior fusion of cervical spine at levels of C5-C7 appearing in satisfactory position. 2. No acute osseous abnormality. 3. Stable mild central canal stenosis at C5/C6 and C6/C7. 4. Redemonstration of neural foraminal narrowing as described above appearing similar compared to prior notable on the left at C5/C6 and C6/C7. [facility] RADIOLOGY EXAMINATION: MRI OF THE CERVICAL SPINE WITHOUT CONTRAST 07/08/2023 1:01 pm TECHNIQUE: Multiplanar multisequence MRI of the cervical spine was performed without the administration of intravenous contrast. COMPARISON: Correlation made with MRI cervical spine from June 03, 2023 HISTORY: ORDERING SYSTEM PROVIDED HISTORY: Fusion TECHNOLOGIST PROVIDED HISTORY: Reason for exam:->Fusion What reading provider will be dictating this exam?->CRC FINDINGS: There is satisfactory alignment of the cervical spine status post anterior fusion at levels of C5, C6, and C7. No evidence of fracture. No prevertebral soft tissue edema. Normal signal associated with the cervical spinal cord. No evidence of mass or hematoma. C2/C3: No central canal stenosis or neural foraminal narrowing. C3/C4: No central canal stenosis or neural foraminal narrowing. C4/C5: Minimal broad-based central and left paracentral disc herniation which is similar in size. No significant neural foraminal narrowing. C5/C6: Redemonstration of broad-based central disc herniation resulting in minimal effacement of the cord. There is stable mild central canal stenosis at this level with AP dimension of thecal sac measuring approximately 9 mm. There is moderate bilateral neural foraminal narrowing more significant on the left. C6/C7: Broad-based central disc herniation is present resulting in minimal effacement of the cord. There is stable mild central canal stenosis with AP dimension of thecal sac measuring approximately 9 mm. There is moderate left neural foraminal narrowing and mild right neural foraminal narrowing C7/T1: No central canal stenosis or significant neural foraminal narrowing. Incidental tiny synovial cyst projects into lateral margin of left neural foramen measuring approximately 2 mm. [facility] RADIOLOGY Buzz Carias DO - 07/08/2023 EXAMINATION: MRI OF THE CERVICAL SPINE WITHOUT CONTRAST 07/08/2023 1:01 pm TECHNIQUE: Multiplanar multisequence MRI of the cervical spine was performed without the administration of intravenous contrast. COMPARISON: Correlation made with MRI cervical spine from June 03, 2023 HISTORY: ORDERING SYSTEM PROVIDED HISTORY: Fusion TECHNOLOGIST PROVIDED HISTORY: Reason for exam:->Fusion What reading provider will be dictating this exam?->CRC FINDINGS: There is satisfactory alignment of the cervical spine status post anterior fusion at levels of C5, C6, and C7. No evidence of fracture. No prevertebral soft tissue edema. Normal signal associated with the cervical spinal cord. No evidence of mass or hematoma. C2/C3: No central canal stenosis or neural foraminal narrowing. C3/C4: No central canal stenosis or neural foraminal narrowing. C4/C5: Minimal broad-based central and left paracentral disc herniation which is similar in size. No significant neural foraminal narrowing. C5/C6: Redemonstration of broad-based central disc herniation resulting in minimal effacement of the cord. There is stable mild central canal stenosis at this level with AP dimension of thecal sac measuring approximately 9 mm. There is moderate bilateral neural foraminal narrowing more significant on the left. C6/C7: Broad-based central disc herniation is present resulting in minimal effacement of the cord. There is stable mild central canal stenosis with AP dimension of thecal sac measuring approximately 9 mm. There is moderate left neural foraminal narrowing and mild right neural foraminal narrowing C7/T1: No central canal stenosis or significant neural foraminal narrowing. Incidental tiny synovial cyst projects into lateral margin of left neural foramen measuring approximately 2 mm. IMPRESSION: 1. Status post anterior fusion of cervical spine at levels of C5-C7 appearing in satisfactory position. 2. No acute osseous abnormality. 3. Stable mild central canal stenosis at C5/C6 and C6/C7. 4. Redemonstration of neural foraminal narrowing as described above appearing similar compared to prior notable on the left at C5/C6 and C6/C7. [facility] Radiology Study observation (narrative) [facility] MR Cervical spine WO contras tOrdered By: Buzz Carias on 07-08-2023 [facility] Work Phone: MRI CERVICAL SPINE WO CONTRA STon 07-08-2023 MRI CERVICAL SPINE WO CONTRAST EXAMINATION: MRI OF THE CERVICAL SPINE WITHOUT CONTRAST 07/08/2023 1:01 pm TECHNIQUE: Multiplanar multisequence MRI of the cervical spine was performed without the administration of intravenous contrast. COMPARISON: Correlation made with MRI cervical spine from June 03, 2023 HISTORY: ORDERING SYSTEM PROVIDED HISTORY: Fusion TECHNOLOGIST PROVIDED HISTORY: Reason for exam:->Fusion What reading provider will be dictating this exam?->CRC FINDINGS: There is satisfactory alignment of the cervical spine status post anterior fusion at levels of C5, C6, and C7. No evidence of fracture. No prevertebral soft tissue edema. Normal signal associated with the cervical spinal cord. No evidence of mass or hematoma. C2/C3: No central canal stenosis or neural foraminal narrowing. C3/C4: No central canal stenosis or neural foraminal narrowing. C4/C5: Minimal broad-based central and left paracentral disc herniation which is similar in size. No significant neural foraminal narrowing. C5/C6: Redemonstration of broad-based central disc herniation resulting in minimal effacement of the cord. There is stable mild central canal stenosis at this level with AP dimension of thecal sac measuring approximately 9 mm. There is moderate bilateral neural foraminal narrowing more significant on the left. C6/C7: Broad-based central disc herniation is present resulting in minimal effacement of the cord. There is stable mild central canal stenosis with AP dimension of thecal sac measuring approximately 9 mm. There is moderate left neural foraminal narrowing and mild right neural foraminal narrowing C7/T1: No central canal stenosis or significant neural foraminal narrowing. Incidental tiny synovial cyst projects into lateral margin of left neural foramen measuring approximately 2 mm. IMPRESSION: 1. Status post anterior fusion of cervical spine at levels of C5-C7 appearing in satisfactory position. 2. No acute osseous abnormality. 3. Stable mild central canal stenosis at C5/C6 and C6/C7. 4. Redemonstration of neural foraminal narrowing as described above appearing similar compared to prior notable on the left at C5/C6 and C6/C7. Interpreted by: Buzz Carias DO Signed by: Buzz Carias DO 07/08/23 Final result Normal [facility] POCT Glucoseon 07-08-2023 Glucose [Mass/Vol] 267 mg/dL Critically high 70-99 M [facility] Comment on above: Performed By: #### C MP #### [facility] [address] [place] [address] POC Performed on ACCU-CHEK [facility] Comment on above: Performed By: #### C MP #### [facility] [address] [place] [address] Glucose [Mass/Vol] 267 mg/dL High 70 - 99 mg/dl [facility] Interpretation and review of laboratory results Abnormal [facility] [employer] Performed on ACCU-CHEK [facility] Glucose [Mass/Vol] 304 mg/dL Critically high 70-99 M [facility] Comment on above: Performed By: #### P GLU #### [facility] [address] [place] [address] POC Performed on ACCU-CHEK [facility] Comment on above: Performed By: #### P GLU #### [facility] [address] [place] [address] Glucose [Mass/Vol] 304 mg/dL High 70 - 99 mg/dl [facility] Interpretation and review of laboratory results Abnormal [facility] Performed on ACCU-CHEK [facility] Glucose [Mass/Vol] 342 mg/dL Critically high 70-99 M [facility] Comment on above: Performed By: #### U NEYMAR #### [facility] [address] [place] [address] POC Performed on ACCU-CHEK Normal [facility] Comment on above: Performed By: #### U NEYMAR #### [facility] [address] [place] [address] Glucose [Mass/Vol] 342 mg/dL High 70 - 99 mg/dl [facility] Interpretation and review of laboratory results Abnormal [facility] Performed on ACCU-CHEK [facility] XR CERVICAL SPINE (2-3 VIEWS )on 07-08-2023 XR CERVICAL SPINE (2-3 VIEWS) EXAM: XR Cervical Spine, 2 or 3 Views EXAM DATE/TIME: 07/08/2023 8:59 pm CLINICAL HISTORY: ORDERING SYSTEM PROVIDED HISTORY: Fusion TECHNOLOGIST PROVIDED HISTORY: Reason for exam:->Fusion Is the patient ?->No What reading provider will be dictating this exam?->CRC TECHNIQUE: Frontal and lateral views of the cervical spine. COMPARISON: No relevant prior studies available. FINDINGS: Vertebrae: No acute findings. No definite fracture. Normal alignment. Disc spaces: C5-C6 anterior discectomy and fusion with anterior plate and screw fixation in anatomic alignment. Soft tissues: No acute findings. IMPRESSION: C5-C6 anterior discectomy and fusion with anterior plate and screw fixation in anatomic alignment. No acute abnormalities are noted. Interpreted by: Vviek Wiseman MD Signed by: Vivek Wiseman MD 07/08/23 Final result Normal [facility] XR Cervical spine 2 or 3 Vie wson 07-08-2023 C5-C6 anterior discectomy and fusion with anterior plate and screw fixation in anatomic alignment. No acute abnormalities are noted. [facility] RADIOLOG[facility] EXAM: XR Cervical Spine, 2 or 3 Views EXAM DATE/TIME: 07/08/2023 8:59 pm CLINICAL HISTORY: ORDERING SYSTEM PROVIDED HISTORY: Fusion TECHNOLOGIST PROVIDED HISTORY: Reason for exam:->Fusion Is the patient ?->No What reading provider will be dictating this exam?->CRC TECHNIQUE: Frontal and lateral views of the cervical spine. COMPARISON: No relevant prior studies available. FINDINGS: Vertebrae: No acute findings. No definite fracture. Normal alignment. Disc spaces: C5-C6 anterior discectomy and fusion with anterior plate and screw fixation in anatomic alignment. Soft tissues: No acute findings. [facility] RADIOLOG[facility] Vivek Wiseman MD - 07/08/2023 EXAM: XR Cervical Spine, 2 or 3 Views EXAM DATE/TIME: 07/08/2023 8:59 pm CLINICAL HISTORY: ORDERING SYSTEM PROVIDED HISTORY: Fusion TECHNOLOGIST PROVIDED HISTORY: Reason for exam:->Fusion Is the patient ?->No What reading provider will be dictating this exam?->CRC TECHNIQUE: Frontal and lateral views of the cervical spine. COMPARISON: No relevant prior studies available. FINDINGS: Vertebrae: No acute findings. No definite fracture. Normal alignment. Disc spaces: C5-C6 anterior discectomy and fusion with anterior plate and screw fixation in anatomic alignment. Soft tissues: No acute findings. IMPRESSION: C5-C6 anterior discectomy and fusion with anterior plate and screw fixation in anatomic alignment. No acute abnormalities are noted. [facility] Radiology Study observation (narrative) [facility] XR Cervical spine 2 or 3 Vie wsOrdered By: Vivek Wiseman on 07-08-2023 [facility] Work Phone: Activated partial thrombopla stin time (aPTT) in platelet poor plasma by coagulation aOrdered By: Daphnie Gudino on 07-07-2023 aPTT Coag (PPP) [Time] 31.5 s 25.1-36.5 [facility] Comment on above: A hematocrit value g reater than 55% may lead to inaccurate results in coagulation testing. Patients having hematocrit values >55% require a special collection tube for coagulation studies. Please contact the laboratory at [phone] for redraw instructions. Arterial Blood [place] 024 ABG Base Excess 1.6 mmol/L Normal -3.0-3.0 [facility] Comment on above: Performed By: #### A BG ####Point of Care testing, ABG Frac Inspired O2 Normal [facility] Comment on above: Performed By: #### A BG ####Point of Care testing, ABG Oxygen Content 4.7 mmol/L Low 6.6-9.7 [facility] Comment on above: Performed By: #### A BG ####Point of Care testing, ABG Oxygen Saturation 54.7 % Low 95.0-100.0 [facility] Comment on above: Performed By: #### A BG ####Point of Care testing, ABG PCO2 52.0 mm[Hg] Off scale high 35.0-45.0 [facility] Comment on above: Performed By: #### A BG ####Point of Care testing, ABG PH 7.35 Normal 7.35-7.45 [facility] Comment on above: Performed By: #### A BG ####Point of Care testing, ABG PO2 31.0 mm[Hg] Off scale low 80.0-100.0 [facility] Comment on above: Performed By: #### A BG ####Point of Care testing, CO2 [Moles/Vol] 29.7 mmol/L High 23.0-27.0 [facility] Comment on above: Performed By: #### A BG ####Point of Care testing, HCO3 (Bld) [Moles/Vol] 28.1 mmol/L Normal 23.0-29.0 [facility] Comment on above: Performed By: #### A BG ####Point of Care testing, Respiratory Critical Normal [facility] Comment on above: Result Comment: Crit ical Value called on: 07/07/2023 at 18:10PERFORMED BY:[place] [address] [place], [place] [phone] MEDICAL DIRECTORNATALIA MIKE M.D. Performed By: #### A BG ####Point of Care testing, VBG Draw Site Venous Normal [facility] Comment on above: Performed By: #### A BG ####Point of Care testing, Automated basophil %Ordered By: Daphnie Gudino on 07-07-2023 Basophils/100 WBC (Bld) 1.1 % Normal . [facility] Comment on above: Performed By: #### B FACTORY EXPERT, CBC, PT, CK, HS TROP, PTT ####[address] Automated basophil countOrde red By: Daphnie Gudino on 07-07-2023 Basophils (Bld) [#/Vol] 0.1 10*3/uL Normal 0.0-0.2 [facility] Comment on above: Result Comment: PERF ORMED BY:[address] [place], [place] [phone] MEDICAL DIRECTORNATALIA MIKE M.D. Performed By: #### B FACTORY EXPERT, CBC, PT, CK, HS TROP, PTT ####[address] Automated blood monocyte cou ntOrdered By: Daphnie Gudino on 07-07-2023 Monocytes (Bld) [#/Vol] 0.6 10*3/uL Normal 0.0-0.8 [facility] Comment on above: Performed By: #### B FACTORY EXPERT, CBC, PT, CK, HS TROP, PTT ####[address] Automated eosinophil %Ordere d By: Daphnie Gudino on 07-07-2023 Eosinophils/100 WBC (Bld) 3.4 % Normal . [facility] Comment on above: Performed By: #### B FACTORY EXPERT, CBC, PT, CK, HS TROP, PTT ####[address] Automated eosinophil countOr dered By: Daphnie Gudino on 07-07-2023 Eosinophils (Bld) [#/Vol] 0.3 10*3/uL Normal 0.0-0.45 [facility] Comment on above: Performed By: #### B FACTORY EXPERT, CBC, PT, CK, HS TROP, PTT ####[address] Automated monocyte %Ordered By: Daphnie Gudino on 07-07-2023 Monocytes/100 WBC (Bld) 8.0 % Normal . [facility] Comment on above: Performed By: #### B FACTORY EXPERT, CBC, PT, CK, HS TROP, PTT ####[address] Automated neutrophil %Ordere d By: Daphnie Gudino on 07-07-2023 Neutrophils/100 WBC (Bld) 58.5 % Normal . [facility] Comment on above: Performed By: #### B FACTORY EXPERT, CBC, PT, CK, HS TROP, PTT ####[address] BNP ser/plasOrdered By: Tanmay Gudino on 07-07-2023 Natriuretic peptide B (Bld) [Mass/Vol] 9.0 pg/mL Normal 5-100 [facility] Comment on above: Result Comment: PERF ORMED BY:[address] [place], [place] [phone] MEDICAL RONAN MIKE M.D. Performed By: #### B FACTORY EXPERT, CBC, PT, CK, HS TROP, PTT ####[address] Basic Metabolic Panelon Creatinine Clr Calc Pharmacy 116.55 [facility] Comment on above: Performed By: #### H CGQUAL, BHOB, BMP ####[address] GFR/1.73 sq M.predicted MDRD (S/P/Bld) [Vol rate/Area] mL/min/{1.73_m2} [facility] Comment on above: Performed By: #### H CGQUAL, BHOB, BMP ####[address] Beta Hydroxybuterateon 07-07 Beta Hydroxybuterate 0.60 mmol/L High 0.02-0.27 [facility] Comment on above: Performed By: #### H SIDDHARTHA HERNANDEZ, BMP ####[facility] Beta hydroxybutyrate [Moles/ volume] in Serum or PlasmaOrdered By: Daphnie Gudino on 07-07-2023 Beta hydroxybutyrate [Moles/Vol] 0.60 mmol/L 0.02-0.27 [facility] Bilirubin Test strip Ql (U)O rdered By: Daphnie Gudnio on 07-07-2023 Bilirubin Ql (U) Negative Negative [facility] CT angio chest PE protocolon 07-07-2023 CT angio chest PE protocol [facility] CT soft tissue neck w conon 07-07-2023 CT soft tissue neck w con Normal [facility] Calcium [Mass/volume] in Ser um or PlasmaOrdered By: Daphnie Gudino on 07-07-2023 Calcium [Mass/Vol] 10.1 mg/dL Normal 8.6-10.3 [facility] Comment on above: Performed By: #### H SIDDHARTHA HERNANDEZ BMP ####[place] [id number] Carbon dioxide, total [Moles /volume] in Serum or PlasmaOrdered By: Daphnie Gudino on 07-07-2023 CO2 [Moles/Vol] 27.0 mmol/L Normal 21.0-31.0 [facility] Comment on above: Performed By: #### H SIDDHARTHA HERNANDEZ, BMP ####[place] [address] [place] [id number] [place] Chloride [Moles/volume] in S jaron or PlasmaOrdered By: Daphnie Gudino on 07-07-2023 Chloride [Moles/Vol] 98 mmol/L Normal 98-107 [facility] Comment on above: Performed By: #### H SIDDHARTHA HERNANDEZ, BMP ####[place] [id number] Choriogonadotropin.beta subu nit [Units/volume] in Serum or PlasmaOrdered By: Daphnie Gudino on 07-07-2023 HCG.beta subunit Qn Negative [facility] Color Auto (U)Ordered By: As jayson Gudino on 07-07-2023 Color (U) Yellow Yellow [facility] Complete Blood Count Auto Di ffon 07-07-2023 Mean Corpuscular HGB Conc 34.0 g/dL Normal 32.0-35.0 [facility] Comment on above: Performed By: #### B FACTORY EXPERT, CBC, PT, CK, HS TROP, PTT ####[place] [id number] Monocytes/100 WBC (Bld) 20.06 % High 0.00-20.00 [facility] Comment on above: Result Comment: For adults in ED, MDW > 20.0 may be associated with a higher risk of sepsis during the first 12 hrs of hospital admission Performed By: #### B FACTORY EXPERT, CBC, PT, CK, HS TROP, PTT ####[place] [id number] NRBC% 0.1 /100{WBC} Normal 0-0.5 [facility] Comment on above: Performed By: #### B FACTORY EXPERT, CBC, PT, CK, HS TROP, PTT ####[place] [address] [place] [id number] [place] Creatine kinase [Enzymatic a ctivity/volume] in Serum or PlasmaOrdered By: Daphnie Gudino on 07-07-2023 CK [Catalytic activity/Vol] 40 U/L Normal 30-223 [facility] Comment on above: Performed By: #### B FACTORY EXPERT, CBC, PT, CK, HS TROP, PTT ####[place] [id number] [place] Creatinine [Mass/volume] in Serum or PlasmaOrdered By: Daphnie Gudino on 07-07-2023 Creatinine [Mass/Vol] 0.81 mg/dL Normal 0.60-1.20 [facility] Comment on above: Performed By: #### H CGQUAL, BHOB, BMP ####[facility] [place] [address] [place] ECG 12 lead ECGon 07-07-2023 ECG [address] [facility] Erythrocyte distribution wid th [Ratio] by Automated countOrdered By: Daphnie Gudino on 07-07-2023 Erythrocyte distribution width (RBC) [Ratio] 13.5 % Normal 11.9-15.3 [facility] Comment on above: Performed By: #### B FACTORY EXPERT, CBC, PT, CK, HS TROP, PTT ####[place] [address] [place] [address] [place] Erythrocytes [#/volume] in B lood by Automated countOrdered By: Daphnie Gudino on 07-07-2023 RBC (Bld) [#/Vol] 4.69 10*6/uL Normal 3.60-5.00 [facility] Comment on above: Performed By: #### B FACTORY EXPERT, CBC, PT, CK, HS TROP, PTT ####[place] [address] [place] [address] [place] Glucose Glucometer (BldC) [M ass/Vol]Ordered By: Daphnie Gudino on 07-07-2023 Glucose [Mass/Vol] 331 mg/dL [facility] Comment on above: Random Glucose Refer ence Range is dependent on time and content of last meal. Glucose of more than 200 mg/dL in a nonstressed, ambulatory subject supports the diagnosis of Diabetes Mellitus. Glucose Poct Glucometerson 0 07-07-2023 Glucose [Mass/Vol] 331 mg/dL Normal [facility] Comment on above: Result Comment: [place] Glucose Reference Range is dependent on time and content of last meal. Glucose of more than 200 mg/dL in a nonstressed, ambulatory subject supports the diagnosis of Diabetes Mellitus.PERFORMED BY:[address] [place], [place] [phone] MEDICAL RONAN MIKE M.D. Performed By: #### G LILLY ####Point of Care testing, Glucose [Mass/volume] in Ser um or PlasmaOrdered By: Daphnie Gudino on 07-07-2023 Glucose [Mass/Vol] 484 mg/dL High 70-100 [facility] Comment on above: ADA recommended refe rence rangeRandom Glucose Reference Range is dependent on time and content of last meal. Glucose of more than 200 mg/dL in a nonstressed, ambulatory subject supports the diagnosis of Diabetes Mellitus. Result Comment: [place] om Glucose Reference Range is dependent on time and content of last meal. Glucose of more than 200 mg/dL in a nonstressed, ambulatory subject supports the diagnosis of Diabetes Mellitus. ADA recommended reference range Performed By: #### H SIDDHARTHA HERNANDEZ, BMP ####[address] [address] [place] HCG,Qualitative Serumon HCG,Qualitative Serum Negative Normal [facility] Comment on above: Result Comment: PERF ORMED BY:[address] [place], [place] [phone] MEDICAL DIRECTORNATALIA MIKE M.D. Performed By: #### H SIDDHARTHA HERNANDEZ, BMP ####[address] [address] [place] Hematocrit [Volume Fraction] of Blood by Automated countOrdered By: Daphnie Gudino on 07-07-2023 Hematocrit (Bld) [Volume fraction] 40.3 % Normal 34.0-46.4 [facility] Comment on above: Performed By: #### B FACTORY EXPERT, CBC, PT, CK, HS TROP, PTT ####[place] [id number] [place] Hemoglobin [Mass/volume] in BloodOrdered By: Daphnie Gudino on 07-07-2023 Hemoglobin (Bld) [Mass/Vol] 13.7 g/dL Normal 11.8-15.4 [facility] Comment on above: Performed By: #### B FACTORY EXPERT, CBC, PT, CK, HS TROP, PTT ####[place] [id number] [place] INR in Platelet poor plasma by Coagulation assayOrdered By: Daphnie Gudino on 07-07-2023 INR Coag (PPP) [Relative time] 1.0 {INR} Normal [facility] Comment on above: INR Therapeutic Rang e A) Pre- and Peroperative OAT started two weeks before surgery. NOT HIP SURGERY: 1.5 - 2.5 HIP SURGERY: 2 - 3B) Primary and secondary prevention of venous THROMBOSIS: 2 - 3C) Active venous thrombosis, pulmonary embolismand prevention of recurrent venous thrombosis: 2 - 3D) Prevention of arterial thromboembolismincluding patients with mechanical heart valves: 3 - 4.5 Result Comment: INR Therapeutic Range A) Pre- and Peroperative OAT started two weeks before surgery. NOT HIP SURGERY: 1.5 - 2.5 HIP SURGERY: 2 - 3 B) Primary and secondary prevention of venous THROMBOSIS: 2 - 3 C) Active venous thrombosis, pulmonary embolism and prevention of recurrent venous thrombosis: 2 - 3 D) Prevention of arterial thromboembolism including patients with mechanical heart valves: 3 - 4.5 Performed By: #### B FACTORY EXPERT, CBC, PT, CK, HS TROP, PTT ####[facility] [address] [place] [address] [place] Ketones Auto test strip (U) [Mass/Vol]Ordered By: Daphnie Gudino on 07-07-2023 Ketones (U) [Mass/Vol] 1+ Negative [facility] - Chemistry and C hemistry - challengeOrdered By: Daphnie Gudino on 07-07-2023 CO2 [Moles/Vol] 29.7 mmol/L 23.0-27.0 [facility] HCO3 (Bld) [Moles/Vol] 28.1 mmol/L 23.0-29.0 [facility] Leukocytes [#/volume] correc suzanne for nucleated erythrocytes in Blood by Automated counOrdered By: Daphnie Gudino on 07-07-2023 WBC corrected for nucl RBC Auto (Bld) [#/Vol] 7.4 10*3/uL 3.8-11.6 [facility] Leukocytes [#/volume] in Blo od by Automated countOrdered By: Daphnie Gudino on 07-07-2023 WBC (Bld) [#/Vol] 7.4 10*3/uL Normal 3.8-11.6 [facility] Comment on above: Performed By: #### B FACTORY EXPERT, CBC, PT, CK, HS TROP, PTT ####[facility] [address] Lymphocytes [#/volume] in Bl ood by Automated countOrdered By: Daphnie Gudino on 07-07-2023 Lymphocytes (Bld) [#/Vol] 2.1 10*3/uL Normal 1.00-4.8 [facility] Comment on above: Performed By: #### B FACTORY EXPERT, CBC, PT, CK, HS TROP, PTT ####[address] Lymphocytes/100 leukocytes i n Blood by Automated countOrdered By: Daphnie Gudino on 07-07-2023 Lymphocytes/100 WBC (Bld) 29.0 % Normal . [facility] Comment on above: Performed By: #### B FACTORY EXPERT, CBC, PT, CK, HS TROP, PTT ####[address] MCH [Entitic mass] by Automa suzanne countOrdered By: Daphnie Gudino on 07-07-2023 MCH (RBC) [Entitic mass] 29.2 pg Normal 24.7-34.3 [facility] Comment on above: Performed By: #### B FACTORY EXPERT, CBC, PT, CK, HS TROP, PTT ####[address] MCHC Auto (RBC) [Mass/Vol]Or dered By: Daphnie Gudino on 07-07-2023 MCHC (RBC) [Mass/Vol] 34.0 g/dL 32.0-35.0 [facility] MCV [Entitic volume] by Auto mated countOrdered By: Daphnie Gudino on 07-07-2023 MCV (RBC) [Entitic vol] 85.8 fL Normal 80-100 [facility] Comment on above: Performed By: #### B FACTORY EXPERT, CBC, PT, CK, HS TROP, PTT ####[address] Monocyte distribution width [Entitic volume] in Blood by AutomatedOrdered By: Daphnie Gudino on 07-07-2023 Monocyte distribution width Auto (Bld) [Entitic vol] 20.06 % 0.00-20.00 [facility] Comment on above: For adults in ED, W > 20.0 may be associated with a higher risk of sepsis during the first 12 hrs of hospital admission Neutrophils [#/volume] in Bl ood by Automated countOrdered By: Daphnie Gudino on 07-07-2023 Neutrophils (Bld) [#/Vol] 4.3 10*3/uL Normal 1.8-7.7 [facility] Comment on above: Performed By: #### B FACTORY EXPERT, CBC, PT, CK, HS TROP, PTT ####[facility] [id number] [place] [address] [place] Nitrite Test strip Ql (U)Ord ered By: Daphnie Gudino on 07-07-2023 Nitrite Ql (U) Negative Negative [facility] No Panel InformationOrdered By: Daphnie Gudino on 07-07-2023 Arterial Blood Base Excess 1.6 mmol/L -3.0-3.0 [facility] Arterial Blood Oxygen Content 4.7 mmol/L 6.6-9.7 [facility] Arterial Blood Oxygen Saturation 54.7 % 95.0-100.0 [facility] Arterial Blood Partial Pressure CO2 52.0 mm[Hg] 35.0-45.0 [facility] Arterial Blood Partial Pressure O2 31.0 mm[Hg] 80.0-100.0 [facility] Arterial Blood pH 7.35 7.35-7.45 [facility] Blood Gas Critical Value See comment [facility] Comment on above: Critical Value sharp d on: 07/07/2023 at 18:10 Blood Gas Sample Site Venous Fir [facility] FiO2 Na % [facility] Estimated GFR (CKD-EPI) > 60.0 mL/Min [facility] Creatinine Clearance (Chem 116.55 [facility] Nucleated erythrocytes [Pres ence] in Blood by Automated countOrdered By: Daphnie Gudino on 07-07-2023 Nucleated RBC Auto Ql (Bld) 0.1 /100{WBC} 0-0.5 [facility] Partial Thromboplastin Timeo n 07-07-2023 aPTT Coag (Bld) [Time] 31.5 s Normal 25.1-36.5 [facility] Comment on above: Result Comment: A he matocrit value greater than 55% may lead to inaccurate results in coagulation testing. Patients having hematocrit values >55% require a special collection tube for coagulation studies. Please contact the laboratory at [phone] for redraw instructions.PERFORMED BY:[address] [place], [place] [phone] MEDICAL DIRECTORNATALIA MIKE M.D. Performed By: #### B FACTORY EXPERT, CBC, PT, CK, HS TROP, PTT ####[address] [address] [place] Platelet mean volume [Entiti c volume] in Blood by Automated countOrdered By: Daphnie Gudino on 07-07-2023 Platelet mean volume (Bld) [Entitic vol] 7.1 fL Normal 6.3-10.7 [facility] Comment on above: Performed By: #### B FACTORY EXPERT, CBC, PT, CK, HS TROP, PTT ####[place] [id number] [place] Platelets [#/volume] in Bloo d by Automated countOrdered By: Daphnie Gudino on 07-07-2023 Platelets (Bld) [#/Vol] 238 10*3/uL Normal 150-450 [facility] Comment on above: Performed By: #### B FACTORY EXPERT, CBC, PT, CK, HS TROP, PTT ####[address] [address] [place] Potassium [Moles/volume] in Serum or PlasmaOrdered By: Daphnie Gudino on 07-07-2023 Potassium [Moles/Vol] 3.9 mmol/L Normal 3.5-5.1 [facility] Comment on above: Performed By: #### H CGQUAL, BHOB, BMP ####[place] [id number] [place] Protein Auto test strip (U) [Mass/Vol]Ordered By: Daphnie Gudino on 07-07-2023 Protein (U) [Mass/Vol] Negative Negative [facility] Prothrombin time (PT)Ordered By: Daphnie Gudino on 07-07-2023 PT Coag (PPP) [Time] 11.4 s Normal 9.0-12.9 [facility] Comment on above: A hematocrit value g reater than 55% may lead to inaccurate results in coagulation testing. Patients having hematocrit values >55% require a special collection tube for coagulation studies. Please contact the laboratory at [phone] for redraw instructions. Result Comment: A he matocrit value greater than 55% may lead to inaccurate results in coagulation testing. Patients having hematocrit values >55% require a special collection tube for coagulation studies. Please contact the laboratory at [phone] for redraw instructions. Performed By: #### B FACTORY EXPERT, CBC, PT, CK, HS TROP, PTT ####[place] [id number] [place] Serum or plasma anion gap de terminationOrdered By: Daphnie Gudino on 07-07-2023 Anion gap [Moles/Vol] 14.9 mmol/L Normal 6.0-15.0 [facility] Comment on above: Performed By: #### H SIDDHARTHA HERNANDEZ, BMP ####[address] [address] [place] Sodium [Moles/volume] in Ser um or PlasmaOrdered By: Daphnie Gudino on 07-07-2023 Sodium [Moles/Vol] 136 mmol/L Normal 136-145 [facility] Comment on above: Performed By: #### H SIDDHARTHA HERNANDEZ, BMP ####[address] [address] [place] Specific gravity Auto test s trip (U) [Rel density]Ordered By: Daphnie Gudino on 07-07-2023 Specific gravity (U) [Rel density] > 1.050 1.001-1.[address] [facility] Troponin I High Sensitivityo n 07-07-2023 Troponin I High Sensitivity 3.3 pg/mL Normal 0.0-15.0 [facility] Comment on above: Result Comment: PERF ORMED BY:[address] [place], [place] [phone] MEDICAL DIRECTORJIANLAN SUN M.D. Performed By: #### H S TROP ####[place] [id number] [place] Troponin I High Sensitivity 2.7 pg/mL Normal 0.0-15.0 [facility] Comment on above: Result Comment: PERF ORMED BY:[place] [address] [place], [place] [phone] MEDICAL DIRECTORNATALIA MIKE M.D. Performed By: #### B FACTORY EXPERT, CBC, PT, CK, HS TROP, PTT ####[address] Troponin I.cardiac [Mass/vol ume] in Serum or Plasma by Detection limit <= 0.01 ng/Ordered By: Daphnie Gudino on 07-07-2023 Troponin I.cardiac DL <= 0.01 ng/mL [Mass/Vol] 3.3 pg/mL 0.0-15.0 [facility] Urea nitrogen [Mass/volume] in Serum or PlasmaOrdered By: Daphnie Gudino on 07-07-2023 Urea nitrogen [Mass/Vol] 17 mg/dL Normal 7-25 [facility] Comment on above: Performed By: #### H CGQUAL, BHOB, BMP ####[address] Urinalysison 07-07-2023 Appearance (U) Clear Normal Clear [facility] Comment on above: Order Comment: Name Collection Type:: Clean-Voided Midstream Performed By: #### U A ####[place] [id number] [place] Bilirubin,Urine Negative Normal Negative [facility] Comment on above: Order Comment: Name Collection Type:: Clean-Voided Midstream Performed By: #### U A ####[place] [id number] [place] Color (U) Yellow Normal Yellow [facility] Comment on above: Order Comment: Name Collection Type:: Clean-Voided Midstream Performed By: #### U A ####[address] Glucose Ql (U) >=[address] [facility] Comment on above: Order Comment: Name Collection Type:: Clean-Voided Midstream Performed By: #### U A ####[address] [address] [place] Ketones Ql (U) 1+ High Negative [facility] Comment on above: Order Comment: Name Collection Type:: Clean-Voided Midstream Performed By: #### U A ####[place] [id number] [place] Leukocyte esterase Test strip Ql (U) Negative Normal Negative [facility] Comment on above: Order Comment: Name Collection Type:: Clean-Voided Midstream Performed By: #### U A ####[place] [id number] [place] Nitrite,Urine Negative Normal Negative [facility] Comment on above: Order Comment: Name Collection Type:: Clean-Voided Midstream Performed By: #### U A ####[place] [id number] [place] Occult Blood,Urine Negative Normal Negative [facility] Comment on above: Order Comment: Name Collection Type:: Clean-Voided Midstream Result Comment: PERF ORMED BY:[address] [place], [place] [phone] MEDICAL RONAN MIKE M.D. Performed By: #### U A ####[address] [address] [place] pH (U) 6.5 [pH] Normal 5.0-9.0 [facility] Comment on above: Order Comment: Name Collection Type:: Clean-Voided Midstream Performed By: #### U A ####[place] [id number] [place] Protein,Urine Negative Normal Negative [facility] Comment on above: Order Comment: Name Collection Type:: Clean-Voided Midstream Performed By: #### U A ####[place] [id number] [place] Specificy [place],Urine > 1.050 High 1.001-1.[address] [facility] Comment on above: Order Comment: Name Collection Type:: Clean-Voided Midstream Performed By: #### U A ####[facility] [address] Urobilinogen,Urine Normal Normal Normal [facility] Comment on above: Order Comment: Name Collection Type:: Clean-Voided Midstream Performed By: #### U A ####[facility] [id number] Urine clarity by refractomet ry automatedOrdered By: Daphnie Gudino on 07-07-2023 Clarity Refractometry automated (U) Clear Clear [facility] Urine glucose measurement by automated test strip (mass/volume)Ordered By: Daphnie Gudino on 07-07-2023 Glucose Auto test strip (U) [Mass/Vol] >=1000 mg/dL Normal [facility] Urine hemoglobin detection b y automated test stripOrdered By: Daphnie Gduino on 07-07-2023 Hemoglobin Auto test strip Ql (U) Negative Negative [facility] Urine leukocyte esterase det ection by automated test stripOrdered By: Daphnie Gudino on 07-07-2023 Leukocyte esterase Auto test strip Ql (U) Negative Negative [facility] Urobilinogen Auto test strip (U) [Mass/Vol]Ordered By: Daphnie Gudino on 07-07-2023 Urobilinogen (U) [Mass/Vol] Normal mg/dL Normal [facility] pH Auto test strip (U)Ordere d By: Daphnie Gudino on 07-07-2023 pH (U) 6.5 [pH] 5.0-9.0 [facility] CBC W Auto Differential pane l (Bld)on 07-01-2023 Basophils (Bld) [#/Vol] 0.0 10*3/uL 0.0 - 0.2 K/uL [facility] Basophils/100 WBC (Bld) 0.5 % [facility] Eosinophils (Bld) [#/Vol] 0.2 10*3/uL 0.0 - 0.7 K/uL [facility] Eosinophils/100 WBC (Bld) 2.8 % [facility] Erythrocyte distribution width (RBC) [Ratio] 13.0 % 11.5 - 14.5 % [facility] Hematocrit (Bld) [Volume fraction] 36.2 % Low 37.0 - 47.0 % [facility] Hemoglobin (Bld) [Mass/Vol] 11.6 g/dL Low 12.0 - 16.0 g/dL [facility] Interpretation and review of laboratory results Abnormal [facility] Lymphocytes (Bld) [#/Vol] 1.1 10*3/uL 1.0 - 4.8 K/uL [facility] Lymphocytes/100 WBC (Bld) 14.7 % [facility] MCH (RBC) [Entitic mass] 28.7 pg 27.0 - 31.3 pg [facility] MCHC (RBC) [Mass/Vol] 32.0 % Low 33.0 - 37.0 % [facility] MCV (RBC) [Entitic vol] 89.6 fL 79.4 - 94.8 fL [facility] Monocytes (Bld) [#/Vol] 0.7 10*3/uL 0.2 - 0.8 K/uL [facility] Monocytes/100 WBC (Bld) 9.3 % [facility] Neutrophils (Bld) [#/Vol] 5.4 10*3/uL 1.4 - 6.5 K/uL [facility] Platelets (Bld) [#/Vol] 201 10*3/uL 130 - 400 K/uL [facility] RBC (Bld) [#/Vol] 4.04 10*6/uL Low [facility] Segmented neutrophils/100 WBC (Bld) 72.4 % [facility] WBC (Bld) [#/Vol] 7.4 10*3/uL 4.8 - 10.8 K/uL [facility] CBC With Platelet and Differ entialon 07-01-2023 Basophils (Bld) [#/Vol] 0.0 10*3/uL Normal 0.0-0.2 [facility] Comment on above: Performed By: #### P GLU #### [facility] [address] [place] [address] Basophils/100 WBC (Bld) 0.5 % Normal [facility] Comment on above: Performed By: #### P GLU #### [facility] [address] [place] [address] Eosinophils (Bld) [#/Vol] 0.2 10*3/uL Normal 0.0-0.7 [facility] Comment on above: Performed By: #### P GLU #### [facility] [address] [place] [address] Eosinophils/100 WBC (Bld) 2.8 % Normal [facility] Comment on above: Performed By: #### P GLU #### [facility] [address] [place] [address] Erythrocyte distribution width (RBC) [Ratio] 13.0 % Normal 11.5-14.5 [facility] Comment on above: Performed By: #### P GLU #### [facility] [address] [place] [address] Hematocrit (Bld) [Volume fraction] 36.2 % Low 37.0-47.0 [facility] Comment on above: Performed By: #### P GLU #### [facility] [address] [place] [address] Hemoglobin (Bld) [Mass/Vol] 11.6 g/dL Low 12.0-16.0 [facility] Comment on above: Performed By: #### P GLU #### [facility] [address] [place] [address] Lymphocytes (Bld) [#/Vol] 1.1 10*3/uL Normal 1.0-4.8 [facility] Comment on above: Performed By: #### P GLU #### [facility] [address] [place] [address] Lymphocytes/100 WBC (Bld) 14.7 % Normal [facility] Comment on above: Performed By: #### P GLU #### [facility] [address] [place] [address] MCH (RBC) [Entitic mass] 28.7 pg Normal 27.0-31.3 [facility] Comment on above: Performed By: #### P GLU #### [facility] [address] [place] [address] MCHC 32.0 % Low 33.0-37.0 [facility] Comment on above: Performed By: #### P GLU #### [facility] [address] [place] [address] MCV (RBC) [Entitic vol] 89.6 fL Normal 79.4-94.8 [facility] Comment on above: Performed By: #### P GLU #### [facility] [address] [place] [address] Monocytes (Bld) [#/Vol] 0.7 10*3/uL Normal 0.2-0.8 [facility] Comment on above: Performed By: #### P GLU #### [facility] [address] [place] [address] Monocytes/100 WBC (Bld) 9.3 % Normal [facility] Comment on above: Performed By: #### P GLU #### [facility] [address] [place] [address] Neutrophils (Bld) [#/Vol] 5.4 10*3/uL Normal 1.4-6.5 [facility] Comment on above: Performed By: #### P GLU #### [facility] [address] [place] [address] Neutrophils/100 WBC (Bld) 72.4 % Normal [facility] Comment on above: Performed By: #### P GLU #### [facility] [address] [place] [address] Platelets (Bld) [#/Vol] 201 10*3/uL Normal 130-400 [facility] Comment on above: Performed By: #### P GLU #### [facility] [address] [place] [address] RBC (Bld) [#/Vol] 4.04 10*6/uL Low 4.20-5.40 [facility] Comment on above: Performed By: #### P GLU #### [facility] [address] [place] [address] WBC (Bld) [#/Vol] 7.4 10*3/uL Normal 4.8-10.8 [facility] Comment on above: Performed By: #### P GLU #### [facility] [address] [place] [address] Comprehensive Metabolic Pane ben 07-01-2023 Albumin [Mass/Vol] 3.5 g/dL Normal 3.5-4.6 [facility] Comment on above: Performed By: #### C MP #### [facility] [address] [place] [address] ALP [Catalytic activity/Vol] 72 U/L Normal 40-130 [facility] Comment on above: Performed By: #### C MP #### [facility] [address] [place] [address] ALT [Catalytic activity/Vol] 15 U/L Normal 0-33 [facility] Comment on above: Performed By: #### C MP #### [facility] [address] [place] [address] Anion gap [Moles/Vol] 10 mmol/L Normal 9-15 [facility] Comment on above: Performed By: #### C MP #### [facility] [address] [place] [address] AST [Catalytic activity/Vol] 17 U/L Normal 0-35 [facility] Comment on above: Performed By: #### C MP #### [facility] [address] [place] [address] Bilirubin [Mass/Vol] 0.4 mg/dL Normal 0.2-0.7 [facility] Comment on above: Performed By: #### C MP #### [facility] [address] [place] [address] Calcium [Mass/Vol] 8.0 mg/dL Low 8.5-9.9 [facility] Comment on above: Performed By: #### C MP #### [facility] [address] [place] [address] Chloride [Moles/Vol] 102 mmol/L Normal 95-107 [facility] Comment on above: Performed By: #### C MP #### [facility] [address] [place] [address] CO2 [Moles/Vol] 26 mmol/L Normal 20-31 [facility] Comment on above: Performed By: #### C MP #### [facility] [address] [place] [address] Creatinine [Mass/Vol] 0.56 mg/dL Normal 0.50-0.90 [facility] Comment on above: Performed By: #### C MP #### [facility] [address] [place] [address] GFR >60.0 Normal >60 [facility] Comment on above: Result Comment: Carlene atric calculator link https://www.kidney.org/professionals/kdoqi/gfr_calculatorped Effective Mar 31, 2022 These results are not intended for use in patients <18 years of age. eGFR results are calculated without a race factor using the 2020 CKD-EPI equation. Careful clinical correlation is recommended, particularly when comparing to results calculated using previous equations. The CKD-EPI equation is less accurate in patients with extremes of muscle mass, extra-renal metabolism of creatinine, excessive creatinine ingestion, or following therapy that affects renal tubular secretion. Performed By: #### C MP #### [facility] [address] [place] [address] Globulin (S) [Mass/Vol] 2.6 g/dL Normal 2.3-3.5 [facility] Comment on above: Performed By: #### C MP #### [facility] [address] [place] [address] Glucose [Mass/Vol] 275 mg/dL Critically high 70-99 [facility] Comment on above: Performed By: #### C MP #### [facility] [address] [place] [address] Potassium [Moles/Vol] 4.2 mmol/L Normal 3.4-4.9 [facility] Comment on above: Performed By: #### C MP #### [facility] [address] [place] [address] Protein [Mass/Vol] 6.1 g/dL Low 6.3-8.0 [facility] Comment on above: Performed By: #### C MP #### [facility] [address] [place] [address] Sodium [Moles/Vol] 138 mmol/L Normal 135-144 [facility] Comment on above: Performed By: #### C MP #### [facility] [address] [place] [address] Urea nitrogen [Mass/Vol] 10 mg/dL Normal 6-20 [facility] Comment on above: Performed By: #### C MP #### [facility] [address] [place] [address] Comprehensive metabolic 2000 panelon 07-01-2023 Albumin [Mass/Vol] 3.5 g/dL 3.5 - 4.6 g/dL [facility] ALP [Catalytic activity/Vol] 72 U/L 40 - 130 U/L [facility] ALT [Catalytic activity/Vol] 15 U/L 0 - 33 U/L [facility] Anion gap [Moles/Vol] 10 mmol/L [facility] AST [Catalytic activity/Vol] 17 U/L 0 - 35 U/L [facility] Bilirubin [Mass/Vol] 0.4 mg/dL 0.2 - 0 .7 mg/dL [facility] Calcium [Mass/Vol] 8.0 mg/dL Low 8.5 - 9.9 mg/dL [facility] Chloride [Moles/Vol] 102 mmol/L [facility] CO2 [Moles/Vol] 26 mmol/L [facility] Creatinine [Mass/Vol] 0.56 mg/dL 0.50 - 0.90 mg/dL [facility] GFR/1.73 sq M.predicted among non-blacks MDRD (S/P/Bld) [Vol rate/Area] 60 - PINF [facility] Comment on above: Pediatric calculator link https://www.kidney.org/professionals/kdoqi/gfr_calculatorped Effective Mar 31, 2022 These results are not intended for use in patients <18 years of age. eGFR results are calculated without a race factor using the 2020 CKD-EPI equation. Careful clinical correlation is recommended, particularly when comparing to results calculated using previous equations. The CKD-EPI equation is less accurate in patients with extremes of muscle mass, extra-renal metabolism of creatinine, excessive creatinine ingestion, or following therapy that affects renal tubular secretion. Globulin (S) [Mass/Vol] 2.6 g/dL 2.3 - 3.5 g/dL [facility] Glucose [Mass/Vol] 275 mg/dL High 70 - 99 mg/dL [facility] Interpretation and review of laboratory results Abnormal [facility] Potassium [Moles/Vol] 4.2 mmol/L [facility] Protein [Mass/Vol] 6.1 g/dL Low 6.3 - 8.0 g/dL [facility] Sodium [Moles/Vol] 138 mmol/L [facility] Urea nitrogen [Mass/Vol] 10 mg/dL 6 - 20 mg/dL [facility] Guidance-- during surgeryon 07-01-2023 EXAMINATION: SPOT FLUOROSCOPIC IMAGES 06/30/2023 11:58 am TECHNIQUE: Fluoroscopy was provided by the radiology department for procedure. Radiologist was not present during examination. FLUOROSCOPY DOSE AND TYPE: Radiation Exposure Index: Kerma mGy, 7.4 COMPARISON: None HISTORY: ORDERING SYSTEM PROVIDED HISTORY: Pain TECHNOLOGIST PROVIDED HISTORY: Is the patient ?->No What reading provider will be dictating this exam?->CRC Intraprocedural imaging. FINDINGS: Spot intraoperative images are obtained demonstrating anterior probes in the lower cervical spine region, with placement of plate and screw fixation hardware as well as interbody graft. [facility] Paulina Bojorquez MD - 07/01/2023 EXAMINATION: SPOT FLUOROSCOPIC IMAGES 06/30/2023 11:58 am TECHNIQUE: Fluoroscopy was provided by the radiology department for procedure. Radiologist was not present during examination. FLUOROSCOPY DOSE AND TYPE: Radiation Exposure Index: Kerma mGy, 7.4 COMPARISON: None HISTORY: ORDERING SYSTEM PROVIDED HISTORY: Pain TECHNOLOGIST PROVIDED HISTORY: Is the patient ?->No What reading provider will be dictating this exam?->CRC Intraprocedural imaging. FINDINGS: Spot intraoperative images are obtained demonstrating anterior probes in the lower cervical spine region, with placement of plate and screw fixation hardware as well as interbody graft. IMPRESSION: Intraprocedural fluoroscopic spot images as above. See separate procedure report for more information. [facility] Guidance-- during surgeryOrd ered By: Paulina Bojorquez on 07-01-2023 [facility] Work Phone: Magnesiumon 07-01-2023 Magnesium [Mass/Vol] 1.9 mg/dL Normal 1.7-2.4 [facility] Comment on above: Performed By: #### U NEYMAR #### [facility] [address] [place] [address] Magnesium [Mass/Vol] 1.9 mg/dL 1.7 - 2 .4 mg/dL [facility] No Panel Informationon 07-01 [facility] POCT Glucoseon 07-01-2023 Glucose [Mass/Vol] 305 mg/dL Critically high 70-99 [facility] Comment on above: Performed By: #### P GLU #### [facility] [address] [place] [address] POC Performed on ACCU-CHEK Normal [facility] Comment on above: Performed By: #### P GLU #### [facility] [address] [place] [address] Glucose [Mass/Vol] 305 mg/dL High 70 - 99 mg/dl [facility] Interpretation and review of laboratory results Abnormal [facility] Performed on ACCU-CHEK [facility] Glucose [Mass/Vol] 249 mg/dL Critically high 70-99 [facility] Comment on above: Performed By: #### P GLU #### [facility] [address] [place] [address] POC Performed on ACCU-CHEK Normal [facility] Comment on above: Performed By: #### P GLU #### [facility] [address] [place] [address] Glucose [Mass/Vol] 249 mg/dL High 70 - 99 mg/dl [facility] Interpretation and review of laboratory results Abnormal [facility] Performed on ACCU-CHEK [facility] [employer] FLUORO FOR SURGICAL PROCEDUR ESon 06-30-2023 FLUORO FOR SURGICAL PROCEDURES EXAMINATION: SPOT FLUOROSCOPIC IMAGES 06/30/2023 11:58 am TECHNIQUE: Fluoroscopy was provided by the radiology department for procedure. Radiologist was not present during examination. FLUOROSCOPY DOSE AND TYPE: Radiation Exposure Index: Kerma mGy, 7.4 COMPARISON: None HISTORY: ORDERING SYSTEM PROVIDED HISTORY: Pain TECHNOLOGIST PROVIDED HISTORY: Is the patient ?->No What reading provider will be dictating this exam?->CRC Intraprocedural imaging. FINDINGS: Spot intraoperative images are obtained demonstrating anterior probes in the lower cervical spine region, with placement of plate and screw fixation hardware as well as interbody graft. IMPRESSION: Intraprocedural fluoroscopic spot images as above. See separate procedure report for more information. Interpreted by: Paulina Bojorquez MD Signed by: Paulina Bojorquez MD 07/01/23 Final result Normal [facility] Guidance-- during surgeryon 06-30-2023 Radiology Study observation (narrative) [facility]ODSRetailMeNot, Inc[employer] HbA1c (Bld) [Mass fraction]o n 06-30-2023 Interpretation and review of laboratory results Abnormal [facility] [place] [employer] Hemoglobin A1con 06-30-2023 HbA1c (Bld) [Mass fraction] 9.8 % Critically high 4.8-5.9 [facility] Comment on above: Performed By: #### U NEYMAR #### [facility] [address] [place] [address] HbA1c (Bld) [Mass fraction] 9.8 % High 4.8 - 5.9 % [facility] POCT Glucoseon 06-30-2023 Glucose [Mass/Vol] 208 mg/dL Critically high 70-99 [facility] Comment on above: Performed By: #### U NEYMAR #### [facility] [address] [place] [address] POC Performed on ACCU-CHEK [facility] Comment on above: Performed By: #### U NEYMAR #### [facility] [address] [place] [address] Performed By: #### P GLU #### [facility] [address] [place] [address] Glucose [Mass/Vol] 208 mg/dL High 70 - 99 mg/dl [facility] Interpretation and review of laboratory results Abnormal [facility] Performed on ACCU-CHEK [facility] Glucose [Mass/Vol] 90 mg/dL Normal 70-99 [facility] Comment on above: Performed By: #### P GLU #### [facility] [address] [place] [address] Performed on ACCU-CHEK [facility] Glucose [Mass/Vol] 82 mg/dL Normal 70-99 [facility] Comment on above: Performed By: #### P GLU #### [facility] [address] [place] [address] POC Performed on ACCU-CHEK [facility] Comment on above: Performed By: #### P GLU #### [facility] [address] [place] [address] Glucose [Mass/Vol] 82 mg/dL 70 - 99 mg/dl [facility] Performed on ACCU-CHEK [facility] MRSA, DNA, Nasalon 3 MRSA, DNA, Nasal SEE BELOW Abnormal NEG [facility] Comment on above: Result Comment: POSI TIVE: MRSA DNA detected by nucleic acid amplification. Results should be used as an adjunct to nosocomial control efforts to identify patients needing enhanced precautions. The test is not intended to identify patients with staphylococcal infections. Results should not be used to guide or monitor treatment for MRSA infections. Performed at [facility], [address] [place], [place] [id number] . Performed By: #### U NEYMAR #### [facility] [address] [facility] [address] MRSA, DNA, Nasalon 3 Specimen Description Swab Normal [facility] Comment on above: Performed By: #### U NEYMAR #### [facility] [address] [place] [address] Type and 3 cell Screen OB Ca ptureon 06-23-2023 Type and 3 cell Screen OB Capture PATIENT: BI Burnette LOC: XIOMARABILL# : [id number] : 1975 SEX: F ORDERED BY: JUSTIN FLETCHER ORDERED : 06/23/2023 13:11 COLLECTED: 06/23/2023 14:03 ORDER : [id number] RECEIVED : 06/23/2023 14:03 --- TEST NAME RESULT UNITS RANGES ABN FL ST ABORH Capture A POS F Antibody 3 Cell Scrn Captu NEG F -- Normal [facility] Comment on above: Performed By: #### P GLU #### [facility] [address] [place] [address] C Urineon 06-08-2023 Bacteria identified Cx Nom (U) Normal [facility] Comment on above: Performed By: #### 1 [id number], 7751521 ####[facility] [address] [place] [address] Auto Diffon 06-07-2023 Basophils/100 WBC (Bld) 0.8 % Normal 0.0-2.0 [facility] Comment on above: Order Comment: Order Added by Discern Expert. Performed By: #### 2 449245, 3717210, 1082269, 6655650, 89041828, 3949079, 6926136 ####[facility] [address] [place] [address] Basophils/Leukocytes Auto (Bld) [Pure # fraction] 0.1 E9/L Normal 0.0-0.2 [facility] Comment on above: Order Comment: Order Added by Discern Expert. Performed By: #### 2 229093, 4069947, 3980981, 7408737, 05443541, 9842189, 8093549 ####[facility] [address] [place] [address] Eosinophils/100 WBC (Bld) 2.1 % Normal 0.0-8.0 [facility] Comment on above: Order Comment: Order Added by Discern Expert. Performed By: #### 2 219964, 0601910, 2092626, 2069203, 90373076, 8385780, 7900701 ####[facility] [address] [place] [address] Eosinophils/Leukocytes Auto (Bld) [Pure # fraction] 0.2 E9/L Normal 0.0-0.5 [facility] Comment on above: Order Comment: Order Added by Discern Expert. Performed By: #### 2 209639, 2389193, 5088205, 3730189, 01662364, 4269604, 1398865 ####[address] [place] [address] Lymphocytes/100 WBC (Bld) 30.9 % Normal 14.0-50.0 [facility] Comment on above: Order Comment: Order Added by Discern Expert. Performed By: #### 2 117846, 0331600, 0618926, 8372525, 66687176, 2496076, 0832265 ####[address] [place] [address] Lymphocytes/Leukocytes Auto (Bld) [Pure # fraction] 2.7 E9/L Normal 1.0-4.0 [facility] Comment on above: Order Comment: Order Added by Discern Expert. Performed By: #### 2 302043, 4038201, 3909979, 0216401, 80470515, 6584865, 2940988 ####[address] [address] Monocytes/100 WBC (Bld) 8.1 % Normal 4.0-14.0 [facility] Comment on above: Order Comment: Order Added by Discern Expert. Performed By: #### 2 676266, 1864676, 6690066, 0238376, 13198222, 4657833, 5579366 ####[address] [address] Monocytes/Leukocytes Auto (Bld) [Pure # fraction] 0.7 E9/L Normal 0.2-1.0 [facility] Comment on above: Order Comment: Order Added by Discern Expert. Performed By: #### 2 538447, 7519801, 9984239, 3715253, 91147947, 7796309, 7739140 ####[address] [address] Neutrophils/100 WBC (Bld) 58.1 % Normal 36.0-75.0 [facility] Comment on above: Order Comment: Order Added by Ariel Expert. Performed By: #### 2 686996, 0000789, 6236976, 2134364, 26814938, 6161122, 9118548 ####[facility] [address] [place] [address] Neutrophils/Leukocytes Auto (Bld) [Pure # fraction] 5.0 E9/L Normal 2.0-7.5 [facility] Comment on above: Order Comment: Order Added by Discern Expert. Performed By: #### 2 229511, 3393295, 1178363, 2435793, 30129781, 2971078, 0107011 ####[facility] [address] [place] [address] BMPon 06-07-2023 Creatinine [Mass/Vol] 0.8 mg/dL Normal 0.5-1.3 [facility] Comment on above: Performed By: #### 2 026178, 8077514, 8758541, 3135422, 19932120, 9109795, 8896951 ####[facility] [address] [place] [address] Urea nitrogen [Mass/Vol] 21 mg/dL Normal 5-21 [facility] Comment on above: Performed By: #### 2 845280, 3421302, 7540308, 6824960, 98518819, 4191975, 3180313 ####[facility] [address] [place] [address] Urea nitrogen/Creatinine [Mass ratio] 26 No Units High 10-20 [facility] Comment on above: Performed By: #### 2 974787, 7596115, 1776450, 9820273, 68748691, 0217964, 4066768 ####[facility] [address] [place] [address] Anion gap [Moles/Vol] 12 mmol/L Normal 6-16 [facility] Comment on above: Performed By: #### 2 339354, 4549225, 6797710, 4824337, 04555150, 9428695, 5257275 ####[facility] [address] [place] [address] Calcium [Mass/Vol] 9.9 mg/dL Normal 8.9-11.1 [facility] Comment on above: Performed By: #### 2 956154, 2197778, 2821301, 1010300, 23336747, 5021966, 2450612 ####[facility] [address] [place] [address] Chloride [Moles/Vol] 103 mmol/L Normal 101-111 [facility] Comment on above: Performed By: #### 2 700509, 2333391, 9176982, 0717927, 57801217, 4692553, 9549168 ####[facility] [address] [place] [address] CO2 [Moles/Vol] 30 mmol/L Normal 21-31 [facility] Comment on above: Performed By: #### 2 794204, 5536769, 8749174, 0839108, 56187635, 3566996, 2766014 ####[facility] [address] [place] [address] Glucose [Mass/Vol] 183 mg/dL Normal 55-199 [facility] Comment on above: Result Comment: If t his glucose result represents a fasting glucose, interpretation should refer to the following reference range: 55-99 mg/dL Performed By: #### 2 722133, 0685219, 2280543, 0897739, 64486995, 9147011, 0113799 ####[facility] [address] [place] [address] Potassium [Moles/Vol] 3.8 mmol/L Normal 3.5-5.3 [facility] Comment on above: Performed By: #### 2 086691, 5826035, 4267807, 4728812, 57604745, 1533806, 8130323 ####[facility] [address] [place] [address] Sodium [Moles/Vol] 141 mmol/L Normal 135-145 [facility] Comment on above: Performed By: #### 2 687856, 8544121, 0846957, 0357917, 67073463, 0659267, 2342556 ####[facility] [address] [place] [address] CBC w/ Auto Diffon Erythrocyte distribution width (RBC) [Ratio] 13.6 % Normal 10.9-14.2 [facility] Comment on above: Performed By: #### 2 560065, 5929496, 8794405, 5185494, 82555891, 5223536, 7397313 ####[address] [place] [address] Hematocrit (Bld) [Volume fraction] 41.1 % Normal 34.0-46.0 [facility] Comment on above: Performed By: #### 2 677853, 5867211, 8238570, 7223091, 24570388, 4000580, 4118459 ####[address] [address] Hemoglobin (Bld) [Mass/Vol] 13.7 g/dL Normal 12.0-16.0 [facility] Comment on above: Performed By: #### 2 659793, 1232675, 8534257, 9187370, 45638647, 0466139, 0575075 ####[address] [address] MCH (RBC) [Entitic mass] 28.5 pg Normal 27.0-34.0 [facility] Comment on above: Performed By: #### 2 832716, 1820018, 5744564, 5221802, 94592452, 1222701, 5287631 ####[address] [address] MCHC (RBC) [Mass/Vol] 33.4 g/dL Normal 31.4-36.0 [facility] Comment on above: Performed By: #### 2 303165, 6151017, 3041737, 7671174, 12988110, 1813900, 5285677 ####[address] [address] MCV (RBC) [Entitic vol] 85.5 fL Normal 80.0-100.0 [facility] Comment on above: Performed By: #### 2 926770, 6294337, 1267181, 8535398, 35812127, 1250538, 3952672 ####[facility] [address] [place] [address] Platelet mean volume (Bld) [Entitic vol] 7.0 fL Normal 6.4-10.8 [facility] Comment on above: Performed By: #### 2 387645, 4772573, 2809898, 9701572, 50299160, 0267742, 0974420 ####[facility] [address] [place] [address] Platelets (Bld) [#/Vol] 245.0 E9/L Normal 150.0-500. 0 [facility] Comment on above: Performed By: #### 2 734283, 4497020, 4839647, 1310171, 94712210, 5502461, 2076483 ####[address] [address] RBC (Bld) [#/Vol] 4.8 E12/L Normal 4.3-5.9 [facility] Comment on above: Performed By: #### 2 241010, 8825306, 0003555, 8352909, 23179188, 8692691, 6315221 ####[facility] [address] [place] [address] WBC corrected for nucl RBC Auto (Bld) [#/Vol] 8.6 E9/L Normal 4.0-11.0 [facility] Comment on above: Performed By: #### 2 439542, 1326306, 1241989, 5162292, 61904476, 3571224, 0785181 ####[address] [address] [address] Abdomen/Pelvis w/o Contra ston 06-07-2023 CT Abdomen/Pelvis w/o Contrast Normal [facility] Consent for Treatmenton 05-29 Consent for Treatment [id number]#1.00TIFF Normal [facility] Discharge Instructionson Discharge Instructions [id number]#1.00TIFF Normal [facility] ED Clinical Summaryon 2022 ED Clinical Summary Normal Dilma michael [facility] ED Note-Physicianon 06-07-20 ED Note-Physician Normal [facility] Comment on above: Result Comment: Elec tronically Signed By: Grey Putnam DO\.br\Date and Time Signed: 06/07/23 04:41 EST ED Patient Education Noteon 06-07-2023 ED Patient Education Note Normal [facility] ED Patient Summaryon 023 ED Patient Summary Normal [facility] Hep Func Panelon 06-07-2023 Bilirubin.indirect [Mass or moles/Vol] UTC Abnormal 0.1-0.9 [facility] Comment on above: Result Comment: Resu lt verified by Discern Rule. Performed result UTC (Unable to Calculate) was sent as an Alpha code due the inability to calculate a valid numeric value. Performed By: #### 2 372895, 8793321, 5034604, 2289631, 68325860, 7854420, 4307782 ####[facility] [address] [place] [address] Albumin [Mass/Vol] 4.0 g/dL Normal 3.3-5.0 [facility] Comment on above: Performed By: #### 2 159677, 8107703, 4756202, 5291563, 16737715, 0515732, 4634278 ####[facility] [address] [place] [address] Albumin/Globulin (S) [Mass conc ratio] 1.0 Low 1.1-2.2 [facility] Comment on above: Performed By: #### 2 967048, 8454918, 2812517, 1042418, 06692020, 5022845, 7177870 ####[facility] [address] [place] [address] ALP [Catalytic activity/Vol] 69 Int._Unit/L Normal 21-98 [facility] Comment on above: Performed By: #### 2 784937, 4918620, 4212420, 3944939, 27046398, 5632504, 7636931 ####[facility] [address] [place] [address] ALT No additional P-5'-P [Catalytic activity/Vol] 21 Int._Unit/L Normal 6-46 [facility] Comment on above: Performed By: #### 2 865938, 3394104, 1730327, 2512413, 45144177, 2160361, 0381400 ####[facility] [address] [place] [address] AST [Catalytic activity/Vol] 25 Int._Unit/L Normal 5-43 [facility] Comment on above: Performed By: #### 2 590387, 5979315, 8494292, 9524468, 51258535, 8726063, 8802705 ####[facility] [address] [place] [address] Bilirubin [Mass/Vol] 0.5 mg/dL Normal 0.0-1.1 [facility] Comment on above: Performed By: #### 2 239098, 1707149, 3845529, 6060132, 61277284, 2901334, 5047191 ####[address] [place] [address] Globulin (S) [Mass/Vol] 3.8 g/dL Normal 1.4-4.0 [facility] Comment on above: Performed By: #### 2 033485, 5831878, 7104969, 6779846, 57497703, 2381443, 7880854 ####[facility] [address] [place] [address] Protein [Mass/Vol] 7.8 g/dL Normal 6.0-7.8 [facility] Comment on above: Performed By: #### 2 043264, 9523931, 4950450, 1422035, 92764610, 6301660, 0294033 ####[facility] [address] [place] [address] Bilirubin.direct [Mass/Vol] mg/dL Normal 0.1-0.4 [facility] Comment on above: Performed By: #### 2 238111, 2245676, 3830580, 4197862, 27750879, 3722129, 7297477 ####[facility] [address] [place] [address] Lipase Levelon 06-07-2023 Lipase [Catalytic activity/Vol] 32 U/L Normal 13-58 [facility] Comment on above: Performed By: #### 2 581377, 3461762, 9688479, 7339905, 59570680, 3410656, 1875729 ####[facility] [address] [place] [address] Monitor Recordon 06-07-2023 Monitor Record [id number]#1.00TIFF Normal [facility] RAD - Preliminary Cat Scan R eporton 06-07-2023 RAD - Preliminary Cat Scan Report [id number]#1.00TIFF Normal [facility] Troponinon 06-07-2023 Troponin I.cardiac [Mass/Vol] 3.10 pg/mL Low 10.10-27.1 0 [facility] Comment on above: Result Comment: The 95% CI (Confidence Interval) PPV (Positive Predictive Value) for myocardial infarction in females is 38 pg/mL, in males 51 pg/mL. The results should be used in conjunction with clinical conditions of myocardial infarction.(Access High Sensitivity Troponin I Instructions For Use, Wilfrido Gordon, January 2018) Performed By: #### 2 194410, 8481032, 3068811, 2957080, 90213140, 8880779, 3321642 ####[facility] [address] [place] [address] U BetaHcg Qualon 06-07-2023 HCG.beta subunit (U) [Moles/Vol] Negative Normal [facility] Comment on above: Performed By: #### 2 2024320 ####[facility] [address] [place] [address] UA With Cult Reflexon 2022 Bacteria LM Ql (Urine sed) TRACE Normal Trace [facility] Comment on above: Performed By: #### 1 3287148, 7036149 ####[facility] [address] [place] [address] Bilirubin Ql (U) Negative Normal Negative [facility] Comment on above: Performed By: #### 1 1979178, 8405106 ####[facility] [address] [place] [address] Clarity (U) CLOUDY Abnormal Clear [facility] Comment on above: Performed By: #### 1 1133953, 8718171 ####[address] [address] Color (U) YELLOW Normal Yellow [facility] Comment on above: Performed By: #### 1 7738295, 0817236 ####[facility] [address] [place] [address] Epithelial cells.squamous LM.HPF (Urine sed) [#/Area] 0-2 Normal 0-2 [facility] Comment on above: Performed By: #### 1 2836321, 0756925 ####[facility] [address] [place] [address] Glucose Test strip (U) [Mass/Vol] Negative Normal Negative [facility] Comment on above: Performed By: #### 1 5546862, 4512424 ####[facility] [address] [place] [address] Hemoglobin Ql (U) 3+ Abnormal Negative [facility] Comment on above: Performed By: #### 1 0938208, 7846254 ####[facility] [address] [place] [address] Ketones (U) [Mass/Vol] Negative Normal Negative [facility] Comment on above: Performed By: #### 1 2410943, 1873037 ####[address] [address] [place].plasma/[place] .RBC (Bld) [Mass ratio] >75 Abnormal 0-3 [facility] Comment on above: Performed By: #### 1 7549163, 2418361 ####[address] [address] Mucus Ql (Urine sed) TRACE Normal [facility] Comment on above: Performed By: #### 1 4092388, 7477924 ####[address] [address] Nitrite Ql (U) Negative Normal Negative [facility] Comment on above: Performed By: #### 1 5214855, 4073562 ####[address] [address] pH (U) 6.0 [pH] Invalid Interpretation Code 5.0-9.0 [facility] Comment on above: Performed By: #### 1 3027631, 4864622 ####[address] [address] Protein (U) [Mass/Vol] Negative Normal Negative [facility] Comment on above: Performed By: #### 1 6869650, 9243222 ####[address] [address] Specific gravity (U) [Rel density] 1.025 Invalid Interpretation Code 1.005-1.03 0 [facility] Comment on above: Performed By: #### 1 3580463, 5871029 ####[address] [address] Type of Urine collection method Clean Catch Normal [facility] Comment on above: Performed By: #### 1 4550833, 4310816 ####[address] [address] Urobilinogen Qn (U) 0.2 {Diaz'U}/dL Normal 0.0-1.0 [facility] Comment on above: Performed By: #### 1 3121087, 0197320 ####[facility] [address] [place] [address] WBC Auto Ql (U) 1+ Abnormal Negative [facility] Comment on above: Performed By: #### 1 6674454, 0882830 ####[facility] [address] [place] [address] WBC casts LM.LPF (Urine sed) [#/Area] 0-3 Normal [facility] Comment on above: Performed By: #### 1 3492158, 4311078 ####[facility] [address] [place] [address] WBC LM.HPF (Urine sed) [#/Area] 0-5 Normal 0-5 [facility] Comment on above: Performed By: #### 1 4771695, 8070202 ####[facility] [address] [place] [address] eGFRon 06-07-2023 GFR/1.73 sq M.predicted among non-blacks MDRD (S/P/Bld) [Vol rate/Area] 91 mL/min/1.73 m2 Normal >=59 [facility] Comment on above: Order Comment: Order added by Discern Expert. Result Comment: [employer] Professional aiyana kidney disease could be indicated at eGFR's of less than 60 mL/min/1.73m2. Kidney failure is indicated at less than 15 mL/min/1.73m2. Performed By: #### 2 286954, 6098155, 1587887, 6531225, 65579170, 7059510, 8346924 ####[facility] [address] [place] [address] CHEMISTRYOrdered By: SYSTEM SYSTEM on 06-06-2023 Albumin [Mass/Vol] 4.0 g/dL Normal 3.3 - 5.0 gm/dL [facility] Albumin/Globulin [Mass ratio] 1.0 {ratio} Low 1.1 - 2.2 [facility] ALP [Catalytic activity/Vol] 69 [iU]/d Normal 21 - 98 Int._Unit/ L [facility] ALT No additional P-5'-P [Catalytic activity/Vol] 21 [iU]/d Normal 6 - 46 Int._Unit/ L [facility] Anion gap [Moles/Vol] 12 mmol/L Normal 6 - 16 mEq/L [facility] AST [Catalytic activity/Vol] 25 [iU]/d Normal 5 - 43 Int._Unit/ L [facility] Bilirubin [Mass/Vol] 0.5 mg/dL Normal 0.0 - 1 .1 mg/dL [facility] Bilirubin.direct [Mass/Vol] mg/dL Normal 0.1 - 0.4 mg/dL [facility] Bilirubin.indirect [Mass or moles/Vol] Unable to Calculate mg/dL Invalid Interpretation Code 0.1 - 0.9 mg/dL [facility] Calcium [Mass/Vol] 9.9 mg/dL Normal 8.9 - 11. 1 mg/dL [facility] Chloride [Moles/Vol] 103 mmol/L Normal 101 - 1 11 mmol/L [facility] CO2 [Moles/Vol] 30 mmol/L Normal 21 - 31 mmol/L [facility] Creatinine [Mass/Vol] 0.8 mg/dL Normal 0.5 - 1.3 mg/dL [facility] GFR/1.73 sq M.predicted among non-blacks MDRD (S/P/Bld) [Vol rate/Area] 91 mL/min/1.73 m2 Normal >=59mL/min /1.73 m2 [facility] Comment on above: Interpretive Data: C hronic kidney disease could be indicated at eGFR's of less than 60 mL/min/1.73m2. Kidney failure is indicated at less than 15 mL/min/1.73m2. Globulin (S) [Mass/Vol] 3.8 g/dL Normal 1.4 - 4.0 gm/dL [facility] Glucose [Mass/Vol] 183 mg/dL Normal 55 - 199 mg/dL [facility] Comment on above: Interpretive Data: I f this glucose result represents a fasting glucose, interpretation should refer to the following reference range: 55-99 mg/dL Lipase [Catalytic activity/Vol] 32 U/L Normal 13 - 58 unit/L [facility] Potassium [Moles/Vol] 3.8 mmol/L Normal 3.5 - 5.3 mmol/L [facility] Protein [Mass/Vol] 7.8 g/dL Normal 6.0 - 7.8 gm/dL [facility] Sodium [Moles/Vol] 141 mmol/L Normal 135 - 145 mmol/L [facility] Troponin I.cardiac [Mass/Vol] 3.10 pg/mL Low 10.10 - 27.10 pg/mL [facility] Comment on above: Interpretive Data: T he 95% CI (Confidence Interval) PPV (Positive Predictive Value) for myocardial infarction in females is 38 pg/mL, in males 51 pg/mL. The results should be used in conjunction with clinical conditions of myocardial infarction. (Access High Sensitivity Troponin I Instructions For Use, Wilfrido Bertha, January 2018) Urea nitrogen [Mass/Vol] 21 mg/dL Normal 5 - 21 mg/dL [facility] Urea nitrogen/Creatinine [Mass ratio] 26 mg/mg High 10 - 20 [facility] HEMATOLOGYOrdered By: SYSTEM SYSTEM on 06-06-2023 Basophils/100 WBC (Bld) 0.8 % Normal 0.0 - 2.0 % [facility]eAuto[facility] Basophils/Leukocytes Auto (Bld) [Pure # fraction] 0.1 E9/L Normal 0.0 - 0.2 E9/L [facility] Eosinophils/100 WBC (Bld) 2.1 % Normal 0.0 - 8.0 % [facility] Eosinophils/Leukocytes Auto (Bld) [Pure # fraction] 0.2 E9/L Normal 0.0 - 0.5 E9/L [facility] Lymphocytes/100 WBC (Bld) 30.9 % Normal 14.0 - 50.0 % [facility] Lymphocytes/Leukocytes Auto (Bld) [Pure # fraction] 2.7 E9/L Normal 1.0 - 4.0 E9/L [facility] Monocytes/100 WBC (Bld) 8.1 % Normal 4.0 - 14.0 % [facility] Monocytes/Leukocytes Auto (Bld) [Pure # fraction] 0.7 E9/L Normal 0.2 - 1.0 E9/L [facility] Neutrophils/100 WBC (Bld) 58.1 % Normal 36.0 - 75.0 % [facility] Neutrophils/Leukocytes Auto (Bld) [Pure # fraction] 5.0 E9/L Normal 2.0 - 7.5 E9/L [facility] HEMATOLOGYOrdered By: Clau Muñoz on 06-06-2023 Erythrocyte distribution width (RBC) [Ratio] 13.6 % Normal 10.9 - 14.2 % [facility] Hematocrit (Bld) [Volume fraction] 41.1 % Normal 34.0 - 46.0 % [facility] Hemoglobin (Bld) [Mass/Vol] 13.7 g/dL Normal 12.0 - 16.0 gm/dL [facility] MCH (RBC) [Entitic mass] 28.5 pg Normal 27.0 - 34.0 pg [facility] MCHC (RBC) [Mass/Vol] 33.4 g/dL Normal 31.4 - 36.0 gm/dL [facility] MCV (RBC) [Entitic vol] 85.5 fL Normal 80.0 - 100.0 fL [facility] Platelet mean volume (Bld) [Entitic vol] 7.0 fL Normal 6.4 - 10.8 fL [facility] Platelets (Bld) [#/Vol] 245.0 E9/L Normal 150.0 - 500.0 E9/L [facility] RBC (Bld) [#/Vol] 4.8 E12/L Normal 4.3 - 5.9 E12/L [facility] WBC corrected for nucl RBC Auto (Bld) [#/Vol] 8.6 E9/L Normal 4.0 - 11.0 E9/L [facility] Laboratory - Microbiology an d Antimicrobial susceptibilityOrdered By: Gaby Reis on 06-06-2023 Bacteria identified Cx Nom (U) Continuing incubation [facility] SEROLOGYOrdered By: Alcira Muñoz on 06-06-2023 HCG.beta subunit (U) [Moles/Vol] Negative Normal [facility] URINALYSISOrdered By: Clau Muñoz on 06-06-2023 Bacteria LM Ql (Urine sed) Trace /HPF Normal Trace/HPF [facility] UA Auto SS Bilirubin Ql (U) Negative (06/06/23 11:09 PM) Normal Negative [facility] UA Auto SS Clarity (U) Cloudy *ABN* (06/06/23 11:09 PM) Invalid Interpretation Code Clear [facility] UA Auto SS Color (U) Yellow (06/06/23 11:09 PM) Normal Yellow [facility] UA Auto SS Epithelial cells.squamous LM.HPF (Urine sed) [#/Area] 0-2 /HPF Normal 0-2/HPF [facility] UA Aut o SS Glucose Test strip (U) [Mass/Vol] Negative (06/06/23 11:09 PM) Normal Negative [facility] UA Auto SS Hemoglobin Ql (U) 3+ *ABN* (06/06/23 11:09 PM) Invalid Interpretation Code Negative [facility] UA Auto SS Ketones (U) [Mass/Vol] Negative (06/06/23 11:09 PM) Normal Negative [facility] UA Auto SS [place].plasma/[place] .RBC (Bld) [Mass ratio] >75 /HPF Invalid Interpretation Code 0-3/HPF [facility] UA Auto SS Mucus Ql (Urine sed) Trace (06/06/23 11:09 PM) Normal [facility] UA Auto SS Nitrite Ql (U) Negative (06/06/23 11:09 PM) Normal Negative [facility] UA Auto SS pH (U) 6.0 *NA* (06/06/23 11:09 PM) Invalid Interpretation Code 5.0 - 9.0 [facility] UA Auto SS Protein (U) [Mass/Vol] Negative (06/06/23 11:09 PM) Normal Negative [facility] UA Auto SS Specific gravity (U) [Rel density] 1.025 *NA* (06/06/23 11:09 PM) Invalid Interpretation Code 1.005 - 1.030 [facility] UA Auto SS UA Spec Desc Clean Catch (06/06/23 11:09 PM) Normal [facility] UA Auto SS Urobilinogen Qn (U) 0.6347489 {Diaz'U}/dL Normal 0.0 - 1.0 EU/dL [facility] UA Auto SS WBC Auto Ql (U) 1+ *ABN* (06/06/23 11:09 PM) Invalid Interpretation Code Negative [facility] UA Auto SS WBC casts LM.LPF (Urine sed) [#/Area] 0-3 (06/06/23 11:09 PM) Normal [facility] UA Auto SS WBC LM.HPF (Urine sed) [#/Area] 0-5 /HPF Normal 0-5/HPF [facility] UA Auto SS MRI CERVICAL SPINE WO CONTRA STon 06-03-2023 MRI CERVICAL SPINE WO CONTRAST EXAMINATION: MRI OF THE CERVICAL SPINE WITHOUT CONTRAST 06/03/2023 12:52 pm TECHNIQUE: Multiplanar multisequence MRI of the cervical spine was performed without the administration of intravenous contrast. COMPARISON: None. HISTORY: ORDERING SYSTEM PROVIDED HISTORY: Cervical stenosis of spine TECHNOLOGIST PROVIDED HISTORY: What reading provider will be dictating this exam?->CRC FINDINGS: BONES/ALIGNMENT: No fracture or joint dislocation is noted. There is straightening of the cervical spine, which may be due to positioning or muscular spasm. The vertebral body heights are preserved. No marrow edema or infiltrative process is noted. SPINAL CORD: No abnormal cord signal is seen. SOFT TISSUES: No paraspinal mass identified. C2-C3: There is no significant disc protrusion, spinal canal stenosis or neural foraminal narrowing. C3-C4: There is no significant disc protrusion, spinal canal stenosis or neural foraminal narrowing. C4-C5: Broad-based disc protrusion, which is somewhat prominent towards the left. It may contact the left C5 ventral root. No significant central stenosis mild left neural foraminal stenosis. C5-C6: Mild loss of disc height a disc bulge. Left greater right uncovertebral joint hypertrophy. Mild central canal stenosis. Mild right and moderate left neural foraminal stenoses C6-C7: Moderate loss of disc height with a disc bulge. Mild central canal stenosis. Mild right and moderate left neural foraminal stenoses. C7-T1: There is no significant disc protrusion, spinal canal stenosis or neural foraminal narrowing. IMPRESSION: 1. No fracture or bony destructive lesion. 2. Mild central canal stenoses at C5-6 and C6-7. 3. Multilevel neural foraminal stenoses, worst (moderate-grade) at the left C5-6 and left C6-7 levels. Interpreted by: Milady Blackburn MD Signed by: Milady Blackburn MD 06/03/23 Final result Normal [facility] Basic Metabolic Profon 05-10 Potassium [Moles/Vol] 4.8 mmol/L Normal 3.7-5.3 [facility] Comment on above: Performed By: #### C DP, [facility] #### [facility] [address] [place] [address] Meat Apprentice: Raj Scott MD Anion gap [Moles/Vol] 11 mmol/L Normal 9-17 [facility] Comment on above: Performed By: #### C DP, BMP #### [facility] [address] [place] [address] Meat Apprentice: Raj Scott MD BUN/CRE Ratio 20 Normal 9-20 [facility] Comment on above: Performed By: #### C DP, BMP #### [facility] [address] [place] [address] Meat Apprentice: Raj Scott MD Calcium [Mass/Vol] 9.1 mg/dL Normal 8.6-10.4 [facility] Comment on above: Performed By: #### C DP, BMP #### [facility] [address] [place], [place] [address]83 Meat Apprentice: Raj Scott MD Chloride [Moles/Vol] 98 mmol/L Normal 98-[address] [facility] Comment on above: Performed By: #### C DP, BMP #### [facility] [address] [place], [place] [id number] Meat Apprentice: Raj Scott MD CO2 [Moles/Vol] 23 mmol/L Normal 20-31 [facility] Comment on above: Performed By: #### C DP, BMP #### [facility] [address] [place] [address] Meat Apprentice: Raj Scott MD Creatinine [Mass/Vol] 0.8 mg/dL Normal 0.5-0.9 [facility] Comment on above: Performed By: #### C DP, BMP #### [facility] [address] [place] [address] Meat Apprentice: Raj Scott MD GFR/1.73 sq M.predicted among non-blacks MDRD (S/P/Bld) [Vol rate/Area] mL/min/{1.73_m2} Normal >60 [facility] Comment on above: Result Comment: These results are not intended for use in patients <18 years of age. eGFR results are calculated without a race factor using the 2020 CKD-EPI equation. Careful clinical correlation is recommended, particularly when comparing to results calculated using previous equations. The CKD-EPI equation is less accurate in patients with extremes of muscle mass, extra-renal metabolism of creatine, excessive creatine ingestion, or following therapy that affects renal tubular secretion. Performed By: #### C DP, BMP #### [facility] [address] [place], [place] [id number] Meat Apprentice: Raj Scott MD Glucose [Mass/Vol] 287 mg/dL High 70-99 [facility] Comment on above: Performed By: #### C DP, BMP #### [facility] [address] [place], [place] [id number] Meat Apprentice: Raj Scott MD Sodium [Moles/Vol] 132 mmol/L Low 135-144 [facility] Comment on above: Performed By: #### C DP, BMP #### [address] [place], [place] [id number] Meat Apprentice: Raj Scott MD Urea nitrogen [Mass/Vol] 16 mg/dL Normal 6-20 [facility] Comment on above: Performed By: #### C DP, BMP #### [address] [place], [place] [id number] Meat Apprentice: Raj Scott MD CBC with Diffon 05-10-2023 Abs. Basophil 0.05 k/uL Normal 0.00-0.20 [facility] Comment on above: Performed By: #### C DP, BMP #### [facility] [address] [place] [address] Meat Apprentice: Raj Scott MD Abs.Imm.Granulocyte <0.03 Normal 0.00-0.30 [facility] Comment on above: Performed By: #### C DP, BMP #### [facility] [address] [place], [place] 9198183 Meat Apprentice: Raj Scott MD Abs.Neutrophil (Seg) 2.37 k/uL Normal 1.50-8.[address] [facility] Comment on above: Performed By: #### C DP, BMP #### [facility] [address] [place], [place] [id number] Meat Apprentice: Raj Scott MD Basophils/100 WBC (Bld) 1 % Normal 0-2 [facility] Comment on above: Performed By: #### C DP, BMP #### [address] [place], [facility]83 Meat Apprentice: Raj Scott MD Eosinophils (Bld) [#/Vol] 0.21 10*3/uL Normal 0.00-0.44 [facility] Comment on above: Performed By: #### C DP, BMP #### [address] [place], [facility]83 Meat Apprentice: Raj Scott MD Eosinophils/100 WBC (Bld) 4 % Normal 1-4 [facility] Comment on above: Performed By: #### C DP, BMP #### [address] [place], [place] 2618183 Meat Apprentice: Raj Scott MD Erythrocyte distribution width (RBC) [Ratio] 11.6 % Low 11.8-14.4 [facility] Comment on above: Performed By: #### C DP, BMP #### [address] [place], [place] [address]12[address] Meat Apprentice: Raj Scott MD Hematocrit (Bld) [Volume fraction] 38.6 % Normal 36.3-47.1 [facility] Comment on above: Performed By: #### C DP, BMP #### [address] [place] [address] Meat Apprentice: Raj Scott MD Hemoglobin (Bld) [Mass/Vol] 12.9 g/dL Normal 11.9-15.1 [facility] Comment on above: Performed By: #### C DP, BMP #### [facility] [address] [place], [place] 2763783 Meat Apprentice: Raj Scott MD Immature granulocytes/100 WBC (Bld) 0 % Normal 0 [facility] Comment on above: Performed By: #### C DP, BMP #### [facility] [address] [place], [place] 5738583 Meat Apprentice: Raj Scott MD Lymphocytes (Bld) [#/Vol] 1.82 10*3/uL Normal 1.10-3.70 [facility] Comment on above: Performed By: #### C DP, BMP #### [address] [place] [address] Meat Apprentice: Raj Scott MD Lymphocytes/100 WBC (Bld) 37 % Normal 24-43 [facility] Comment on above: Performed By: #### C DP, BMP #### [address] [place], [place] [address]83 Meat Apprentice: Raj Scott MD MCH (RBC) [Entitic mass] 29.2 pg Normal 25.2-33.5 [facility] Comment on above: Performed By: #### C DP, BMP #### [address] [place], [facility]83 Meat Apprentice: Raj Scott MD MCHC (RBC) [Mass/Vol] 33.4 g/dL Normal 28.4-34.8 [facility] Comment on above: Performed By: #### C DP, BMP #### [address] [place] [address] Meat Apprentice: Raj Scott MD MCV (RBC) [Entitic vol] 87.3 fL Normal 82.6-102.9 [facility] Comment on above: Performed By: #### C DP, BMP #### [facility] [address] [place], [place] [address]83 Meat Apprentice: Raj Scott MD Monocytes (Bld) [#/Vol] 0.42 10*3/uL Normal 0.10-1.20 [facility] Comment on above: Performed By: #### C DP, BMP #### [facility] [address] [place], [place] 1667483 Meat Apprentice: Raj Scott MD Monocytes/100 WBC (Bld) 9 % Normal 3-12 [facility] Comment on above: Performed By: #### C DP, BMP #### [address] [place], [place] 4407383 Meat Apprentice: Raj Scott MD Neutrophil (Seg) 49 % Normal 36-65 [facility] Comment on above: Performed By: #### C DP, BMP #### [address] [place], [place] 8139383 Meat Apprentice: Raj Scott MD NRBC Automated 0.0 per 100 WBC Normal 0.0 [facility] Comment on above: Performed By: #### C DP, BMP #### [address] [place], [place] 136[address]83 Meat Apprentice: Raj Scott MD Platelet mean volume (Bld) [Entitic vol] 9.3 fL Normal 8.1-13.5 [facility] Comment on above: Performed By: #### C DP, BMP #### [address] [place], [place] 8217383 Meat Apprentice: Raj Scott MD Platelets (Bld) [#/Vol] 201 10*3/uL Normal 138-453 [facility] Comment on above: Performed By: #### C DP, BMP #### [address] [place], [place] [address]39[address]83 Meat Apprentice: Raj Scott MD RBC (Bld) [#/Vol] 4.42 10*6/uL Normal 3.95-5.11 [facility] Comment on above: Performed By: #### C DP, BMP #### [facility] [address] [place] [address] Meat Apprentice: Raj Scott MD WBC (Bld) [#/Vol] 4.9 10*3/uL Normal 3.5-11.3 [facility] Comment on above: Performed By: #### C DP, BMP #### [facility] [address] [place], [place] 4059383 Meat Apprentice: Raj Scott MD CT ABDOMEN PELVIS WO CONTRAS Ton 05-10-2023 CT ABDOMEN PELVIS WO CONTRAST EXAMINATION: CT OF THE ABDOMEN AND PELVIS WITHOUT CONTRAST 05/10/2023 2:08 pm TECHNIQUE: CT of the abdomen and pelvis was performed without the administration of intravenous contrast. Multiplanar reformatted images are provided for review. Automated exposure control, iterative reconstruction, and/or weight based adjustment of the mA/kV was utilized to reduce the radiation dose to as low as reasonably achievable. COMPARISON: 08/13/2022 HISTORY: ORDERING SYSTEM PROVIDED HISTORY: left flank pain; hx of kidney stones TECHNOLOGIST PROVIDED HISTORY: left flank pain; hx of kidney stones Decision Support Exception - unselect if not a suspected or confirmed emergency medical condition->Emergency Medical Condition (MA) Is the patient ?->No FINDINGS: Evaluation of the solid and hollow abdominal viscera is limited without intravenous contrast administration. Lower Chest: Scattered bibasilar ground-glass densities. Organs: Cholecystectomy. Punctate 0.3 cm nonobstructing stone within the superior right kidney. Probable punctate nonobstructing 0.1 cm stone within the inferior left kidney. No hydronephrosis or hydroureter. Otherwise unremarkable. GI/Bowel: No acute obstruction. Probable constipation. Normal appendix. Pelvis: Hysterectomy. Otherwise unremarkable. Peritoneum/Retroperitoneu m: No adenopathy. Bones/Soft Tissues: No acute fracture or aggressive osseous lesion. IMPRESSION: 1. No acute obstructive uropathy. Bilateral nephrolithiasis. 2. Scattered bibasilar ground-glass densities which may reflect atypical infection/pneumonitis. 3. Additional nonemergent findings, as above. Interpreted by: Anum Briscoe MD Signed by: Anum Briscoe MD 05/10/23 Final result Normal [facility] Urinalysis w/ Microon 2022 Bacteria 1+ Abnormal NONE [facility] Comment on above: Performed By: #### U AMIC #### [facility] [address] [place], [place] [address]83 Meat Apprentice: Raj Scott MD Epithelial cells LM Ql (Urine sed) 5 TO 10 Normal 0-25 [facility] Comment on above: Performed By: #### U AMIC #### [facility] [address] [place] [address] Dr[address] [place], [place] 6603183 Meat Apprentice: Raj Scott MD Mucus Strands TRACE Abnormal [facility] Comment on above: Performed By: #### U AMIC #### [facility] [address] [place] [address] Dr[address] [place], [place] 7354983 Meat Apprentice: Raj Scott MD Urine RBC's 0 TO 2 Normal 0-2 [facility] Comment on above: Performed By: #### U AMIC #### [facility] [address] [place] [address] [place] [address] Meat Apprentice: Raj Scott MD Urine WBC's 2 TO 5 Normal 0-5 [facility] Comment on above: Performed By: #### U AMIC #### [facility] [address] [place], [place] 8713483 Meat Apprentice: Raj Scott MD Bilirubin, SemiQt,Ur Negative Normal NEG [facility] Comment on above: Performed By: #### U AMIC #### [facility] [address] [place], [place] [address]83 Meat Apprentice: Raj Scott MD Blood, Urine Negative Normal NEG [facility] Comment on above: Performed By: #### U AMIC #### [facility] [address] [place] [address] Dr. [place], [place] 6919[address] Meat Apprentice: Raj Scott MD Clarity (U) Clear Normal CLEAR [facility] Comment on above: Performed By: #### U AMIC #### [facility] [address] [place] [address] Dr[address] [place], [place] 8994983 Meat Apprentice: Raj Scott MD Color (U) Yellow Normal YEL [facility] Comment on above: Performed By: #### U AMIC #### [address] [place], [place] [address]83 Meat Apprentice: Raj Scott MD Glucose Ql (U) 2+ mg/dL Abnormal NEG [facility] Comment on above: Performed By: #### U AMIC #### [facility] [address] [place] [address] Dr[address] [place], [place] 6587583 Meat Apprentice: Raj Scott MD Ketones Ql (U) Negative Normal NEG [facility] Comment on above: Performed By: #### U AMIC #### [address] [place] [address] Meat Apprentice: Raj Scott MD Leukocyte esterase Test strip Ql (U) Negative Normal NEG [facility] Comment on above: Performed By: #### U AMIC #### [address] [place], [place] [address]283 Meat Apprentice: Raj Scott MD Nitrite,Ur Negative Normal NEG [facility] Comment on above: Performed By: #### U AMIC #### [address] [place] [address] Meat Apprentice: Raj Scott MD PH,Ur 6.0 Normal 5.0-9.0 [facility] Comment on above: Performed By: #### U AMIC #### [address] [place], [place] [address]783 Meat Apprentice: Raj Scott MD Protein Ql (U) Negative Normal NEG [facility] Comment on above: Performed By: #### U AMIC #### [facility] [address] [place] [address] Meat Apprentice: Raj Scott MD Spec. [place],Ur 1.025 High 1.010-1.02 0 [facility] Comment on above: Performed By: #### U AMIC #### [facility] [address] [place] 9936[address] Meat Apprentice: Raj Scott MD Urobilinogen,Ur Normal Normal 0.0-1.0 [facility] Comment on above: Performed By: #### U AMIC #### [facility] [address] [place], [place] [address] Meat Apprentice: Raj Scott MD Glucose Glucometer (dC) [M ass/Vol]Ordered By: Braulio Dukes on 04-03-2023 Glucose [Mass/Vol] 244 mg/dL [facility] Comment on above: Random Glucose Refer ence Range is dependent on time and content of last meal. Glucose of more than 200 mg/dL in a nonstressed, ambulatory subject supports the diagnosis of Diabetes Mellitus. Glucose Poct Glucometerson 1 Commemt1 Glu2: Cleaned Meter Normal [facility] Comment on above: Result Comment: PERF ORMED BY:[address], [place] [phone] MEDICAL DIRECTORNATALIA MIKE M.D. Performed By: #### G LULS ####Point of Care testing, Glucose [Mass/Vol] 244 mg/dL Normal [facility] Comment on above: Result Comment: [place] Glucose Reference Range is dependent on time and content of last meal. Glucose of more than 200 mg/dL in a nonstressed, ambulatory subject supports the diagnosis of Diabetes Mellitus. Performed By: #### G LULS ####Point of Care testing, Commemt1 Glu2: Cleaned Meter [facility] Comment on above: Result Comment: PERF ORMED BY:[place] [address] [address] [place], [place] [phone] MEDICAL DIRECTORNATALIA MIKE M.D. Performed By: #### G LULS ####Point of Care testing, Glucose [Mass/Vol] 267 mg/dL Normal [facility] Comment on above: Result Comment: [place] om Glucose Reference Range is dependent on time and content of last meal. Glucose of more than 200 mg/dL in a nonstressed, ambulatory subject supports the diagnosis of Diabetes Mellitus. Performed By: #### G LULS ####Point of Care testing, No Panel InformationOrdered By: Braulio Dukes on 04-03-2023 Bedside Glucose Comment Glu2: cleaned meter [facility] ECG 12 lead ECGon 04-02-2023 ECG [address] [facility] Glucose Poct Glucometerson 1 Glucose [Mass/Vol] 209 mg/dL Normal [facility] Comment on above: Result Comment: [place] om Glucose Reference Range is dependent on time and content of last meal. Glucose of more than 200 mg/dL in a nonstressed, ambulatory subject supports the diagnosis of Diabetes Mellitus.PERFORMED BY:[place] [address] [address] [place], [place] [phone] MEDICAL RONAN MIKE M.D. Performed By: #### G LULS ####Point of Care testing, Commemt1 Glu2: Cleaned Meter [facility] Comment on above: Result Comment: PERF ORMED BY:[place] [address] [address] [place], [place] [phone] MEDICAL RONAN MIKE M.D. Performed By: #### G LULS ####Point of Care testing, Glucose [Mass/Vol] 298 mg/dL Normal [facility] Comment on above: Result Comment: [place] om Glucose Reference Range is dependent on time and content of last meal. Glucose of more than 200 mg/dL in a nonstressed, ambulatory subject supports the diagnosis of Diabetes Mellitus. Performed By: #### G LULS ####Point of Care testing, Commemt1 Glu2: Cleaned Meter [facility] Comment on above: Result Comment: PERF ORMED BY:[place] [address] [address] MEDINAVANESSAD[place], [place] [phone] MEDICAL DIRECTORNATALIA MIKE M.D. Performed By: #### G LULS ####Point of Care testing, Glucose [Mass/Vol] 238 mg/dL Normal [facility] Comment on above: Result Comment: [place] Glucose Reference Range is dependent on time and content of last meal. Glucose of more than 200 mg/dL in a nonstressed, ambulatory subject supports the diagnosis of Diabetes Mellitus. Performed By: #### G LULS ####Point of Care testing, Glucose Poct Glucometerson 1 Commemt1 Glu2: Cleaned Meter [facility] Comment on above: Result Comment: PERF ORMED BY:[place] [address] [address] [place], [place] [phone] MEDICAL DIRECTORNATALIA MIKE M.D. Performed By: #### G LULS ####Point of Care testing, Glucose [Mass/Vol] 218 mg/dL Normal [facility] Comment on above: Result Comment: [facility] Glucose Reference Range is dependent on time and content of last meal. Glucose of more than 200 mg/dL in a nonstressed, ambulatory subject supports the diagnosis of Diabetes Mellitus. Performed By: #### G LULS ####Point of Care testing, Commemt1 Glu2: Cleaned Meter [facility] Comment on above: Result Comment: PERF ORMED BY:[place] [address] [address] [place], [place] [phone] MEDICAL RONAN MIKE M.D. Performed By: #### G LULS ####Point of Care testing, Glucose [Mass/Vol] 250 mg/dL Normal [facility] Comment on above: Result Comment: [place] om Glucose Reference Range is dependent on time and content of last meal. Glucose of more than 200 mg/dL in a nonstressed, ambulatory subject supports the diagnosis of Diabetes Mellitus. Performed By: #### G LULS ####Point of Care testing, Commemt1 Glu2: CLEANED Normal [facility] Comment on above: Result Comment: PERF ORMED BY:[place] [address] [address] BIPINLeviSorinVANESSAD[place], [place] [phone] MEDICAL DIRECTORNATALIA MIKE M.D. Performed By: #### G LULS ####Point of Care testing, Glucose [Mass/Vol] 237 mg/dL Normal [facility] Comment on above: Result Comment: [place] om Glucose Reference Range is dependent on time and content of last meal. Glucose of more than 200 mg/dL in a nonstressed, ambulatory subject supports the diagnosis of Diabetes Mellitus. Performed By: #### G LULS ####Point of Care testing, Commemt1 Glu2: Cleaned Meter [facility] Comment on above: Result Comment: PERF ORMED BY:[place] [address] [address] BIPINLeviSorinVANES[place], [place] [phone] MEDICAL RONAN MIKE M.D. Performed By: #### G LULS ####Point of Care testing, Glucose [Mass/Vol] 244 mg/dL Normal [facility] Comment on above: Result Comment: [place] om Glucose Reference Range is dependent on time and content of last meal. Glucose of more than 200 mg/dL in a nonstressed, ambulatory subject supports the diagnosis of Diabetes Mellitus. Performed By: #### G LULS ####Point of Care testing, Glucose Poct Glucometerson 1 Commemt1 Glu2: Cleaned Meter [facility] Comment on above: Result Comment: PERF ORMED BY:[place] [address] [address] [place], [place] [phone] MEDICAL RONAN MIKE M.D. Performed By: #### G LULS ####Point of Care testing, Glucose [Mass/Vol] 158 mg/dL Normal [facility] Comment on above: Result Comment: [facility] Glucose Reference Range is dependent on time and content of last meal. Glucose of more than 200 mg/dL in a nonstressed, ambulatory subject supports the diagnosis of Diabetes Mellitus. Performed By: #### G LULS ####Point of Care testing, Glucose [Mass/Vol] 149 mg/dL Normal [facility] Comment on above: Result Comment: [facility] Glucose Reference Range is dependent on time and content of last meal. Glucose of more than 200 mg/dL in a nonstressed, ambulatory subject supports the diagnosis of Diabetes Mellitus.PERFORMED BY:[address] [place], [place] [phone] MEDICAL RONAN MIKE M.D. Performed By: #### G LULS ####Point of Care testing, Glucose [Mass/Vol] 185 mg/dL Normal [facility] Comment on above: Result Comment: [facility] Glucose Reference Range is dependent on time and content of last meal. Glucose of more than 200 mg/dL in a nonstressed, ambulatory subject supports the diagnosis of Diabetes Mellitus.PERFORMED BY:[place] [address] [address] [place], [place] [phone] BRANDEN MIKE M.D. Performed By: #### G LULS ####Point of Care testing, Glucose [Mass/Vol] 210 mg/dL Normal [facility] Comment on above: Result Comment: [facility] Glucose Reference Range is dependent on time and content of last meal. Glucose of more than 200 mg/dL in a nonstressed, ambulatory subject supports the diagnosis of Diabetes Mellitus.PERFORMED BY:[address] [place], [place] [phone] BRANDEN MIKE M.D. Performed By: #### G LULS ####Point of Care testing, Glucose Poct Glucometerson 1 Glucose [Mass/Vol] 108 mg/dL Normal [facility] Comment on above: Result Comment: [facility] Glucose Reference Range is dependent on time and content of last meal. Glucose of more than 200 mg/dL in a nonstressed, ambulatory subject supports the diagnosis of Diabetes Mellitus.PERFORMED BY:[place] [address] [address] MED[place]AV[place]ESS[place], [place] [phone] MEDICAL DIRECTORNATALIA MIKE M.D. Performed By: #### G LULS ####Point of Care testing, Glucose [Mass/Vol] 165 mg/dL Normal [facility] Comment on above: Result Comment: [facility] Glucose Reference Range is dependent on time and content of last meal. Glucose of more than 200 mg/dL in a nonstressed, ambulatory subject supports the diagnosis of Diabetes Mellitus.PERFORMED BY:[address] [place], [place] [phone] MEDICAL DIRECTORNATALIA MIKE M.D. Performed By: #### G LULS ####Point of Care testing, Glucose [Mass/Vol] 190 mg/dL Normal [facility] [facility] Comment on above: Result Comment: [facility] Glucose Reference Range is dependent on time and content of last meal. Glucose of more than 200 mg/dL in a nonstressed, ambulatory subject supports the diagnosis of Diabetes Mellitus.PERFORMED BY:[address] [place], [place] [phone] MEDICAL RONAN MIKE M.D. Performed By: #### G LULS ####Point of Care testing, Glucose [Mass/Vol] 223 mg/dL Normal [facility] Comment on above: Result Comment: [facility] Glucose Reference Range is dependent on time and content of last meal. Glucose of more than 200 mg/dL in a nonstressed, ambulatory subject supports the diagnosis of Diabetes Mellitus.PERFORMED BY:[address] [place] [place], [place] [phone] MEDICAL RONAN MIKE M.D. Performed By: #### G LULS ####Point of Care testing, Cholesterol [Mass/volume] in Serum or PlasmaOrdered By: Braulio Dukes on 03-29-2023 Cholesterol [Mass/Vol] 361 mg/dL 140-200 [facility] Comment on above: Chol less than 200 m g/dl low riskChol 201-239 mg/dl borderline riskChol 240 mg/dl and greater high risk Cholesterol in LDL Calc [Mas s/Vol]Ordered By: Braulio Dukes on 03-29-2023 Cholesterol in LDL [Mass/Vol] 246 mg/dL 0-100 [facility] Comment on above: LDL ATP III CLASSIFI CATIONLDL less than 100 mg/dL OptimalLDL 100-129 mg/dL Near or above optimalLDL 130-159 mg/dL Borderline highLDL 160-189 mg/dL HighLDL greater than 189 mg/dL Very high Cholesterol in VLDL Calc [Ma ss/Vol]Ordered By: Braulio Dukes on 03-29-2023 Cholesterol in VLDL [Mass/Vol] 62 mg/dL [facility] ECG 12 lead ECGon 03-29-2023 ECG [address] [facility] Glucose Poct Glucometerson 1 Commemt1 Glu2: Cleaned Meter [facility] Comment on above: Result Comment: PERF ORMED BY:[address] [address] [place] [place], [place] [id number] MEDICAL DIRECTORNATALIA MIKE M.D. Performed By: #### G LULS ####Point of Care testing, Glucose [Mass/Vol] 156 mg/dL [facility] Comment on above: Result Comment: [facility] Glucose Reference Range is dependent on time and content of last meal. Glucose of more than 200 mg/dL in a nonstressed, ambulatory subject supports the diagnosis of Diabetes Mellitus. Performed By: #### G LULS ####Point of Care testing, Commemt1 Glu2: Cleaned Meter [facility] Comment on above: Result Comment: PERF ORMED BY:[address] [address] [address] [place], [place] [phone] MEDICAL DIRECTORNATALIA MIKE M.D. Performed By: #### G LULS ####Point of Care testing, Glucose [Mass/Vol] 216 mg/dL Normal [facility] Comment on above: Result Comment: [place] Glucose Reference Range is dependent on time and content of last meal. Glucose of more than 200 mg/dL in a nonstressed, ambulatory subject supports the diagnosis of Diabetes Mellitus. Performed By: #### G LULS ####Point of Care testing, Commemt1 Glu2: Cleaned Meter [facility] Comment on above: Result Comment: PERF ORMED BY:[address] [address] [address] [place], [place] [phone] MEDICAL DIRECTORNATALIA MIKE M.D. Performed By: #### G LULS ####Point of Care testing, Glucose [Mass/Vol] 310 mg/dL Normal [facility] Comment on above: Result Comment: [place] [facility] Glucose Reference Range is dependent on time and content of last meal. Glucose of more than 200 mg/dL in a nonstressed, ambulatory subject supports the diagnosis of Diabetes Mellitus. Performed By: #### G LULS ####Point of Care testing, Commemt1 Glu2: Cleaned Meter [facility] Comment on above: Result Comment: PERF ORMED BY:[address] [place], [place] [phone] MEDICAL DIRECTORNATALIA MIKE M.D. Performed By: #### G LULS ####Point of Care testing, Glucose [Mass/Vol] 189 mg/dL Normal [facility] Comment on above: Result Comment: [place] [facility] Glucose Reference Range is dependent on time and content of last meal. Glucose of more than 200 mg/dL in a nonstressed, ambulatory subject supports the diagnosis of Diabetes Mellitus. Performed By: #### G LULS ####Point of Care testing, Lipid Panelon 03-29-2023 Cholesterol [Mass/Vol] 361 mg/dL High 140-200 [facility] Comment on above: Result Comment: Chol less than 200 mg/dl low risk Chol 201-239 mg/dl borderline risk Chol 240 mg/dl and greater high risk Performed By: #### L IPID, [id number], TSH3 wRFLX ####[facility] [place] [address] [place] Cholesterol in HDL [Mass/Vol] 52 mg/dL Normal 23-92 [facility] Comment on above: Result Comment: HDL CHOL ATP-III CLASSIFICATION Cardiovascular Risk HDL > or equal to 60 mg/dL LOW HDL < 40 mg/dL HIGH Performed By: #### L IPID, [id number], TSH3 wRFLX ####[address] [address] [place] Cholesterol.total/Chol esterol in HDL [Mass ratio] 6.9 {ratio} Normal <5.0 [facility] Comment on above: Performed By: #### L IPID, [id number], TSH3 wRFLX ####[address] [address] [place] LDL Cholesterol,Calculated 246 mg/dL High 0-100 [facility] Comment on above: Result Comment: LDL ATP III CLASSIFICATION LDL less than 100 mg/dL Optimal LDL 100-129 mg/dL Near or above optimal LDL 130-159 mg/dL Borderline high LDL 160-189 mg/dL High LDL greater than 189 mg/dL Very high Performed By: #### L IPID, [id number], TSH3 wRFLX ####[address] [address] [place] Triglyceride w/Reflex 313 mg/dL High 0-149 [facility] Comment on above: Result Comment: TRIG ATP III CLASSIFICATION TRIG less than 150 mg/dL Normal TRIG 150-199 mg/dL Borderline high TRIG 200-500 mg/dL High TRIG greater than 500 mg/dL Very high Standard traceable to the Center for Disease Conrtrol and Prevention (CDC) test method. Performed By: #### L IPID, [id number], TSH3 wRFLX ####[address] [address] [place] VLDL CHOLESTEROL 62 mg/dL Normal [facility] Comment on above: Performed By: #### L IPID, [id number], TSH3 wRFLX ####[address] [address] [place] Serum or plasma high density lipoprotein (HDL) cholesterol measurementOrdered By: Braulio Dukes on 03-29-2023 Cholesterol in HDL [Mass/Vol] 52 mg/dL 23-92 [facility] Comment on above: HDL CHOL ATP-III CLA SSIFICATION Cardiovascular RiskHDL > or equal to 60 mg/dL LOWHDL < 40 mg/dL HIGH Serum or plasma total choles terol/high density lipoprotein (HDL) cholesterol mass ratOrdered By: Braulio Dukes on 03-29-2023 Cholesterol.total/Chol esterol in HDL [Mass ratio] 6.9 {ratio} <5.0 [facility] Thyroid Stim Hormone w/Rflxo n 03-29-2023 Thyroid Stim Hormone w/Rflx 4.83 u[iU]/mL Normal 0.45-5.33 [facility] Comment on above: Performed By: #### L IPID, [id number], TSH3 wRFLX ####[facility] [id number] Thyrotropin [Units/volume] i n Serum or PlasmaOrdered By: Braulio Dukes on 03-29-2023 TSH Qn 4.83 m[IU]/L 0.45-5.33 [facility] Triglyceride [Mass/volume] i n Serum or PlasmaOrdered By: Braulio Dukes on 03-29-2023 Triglyceride [Mass/Vol] 313 mg/dL 0-149 [facility] Comment on above: TRIG ATP III CLASSIF ICATIONTRIG less than 150 mg/dL NormalTRIG 150-199 mg/dL Borderline highTRIG 200-500 mg/dL High TRIG greater than 500 mg/dL Very highStandard traceable to the Center for Disease Conrtrol and Prevention (CDC) test method. Vitamin D 25 Hydroxy Totalon 03-29-2023 Vitamin D 25 Hydroxy Total 20.4 ng/mL Low 30-100 [facility] Comment on above: Result Comment: ELIAS MIN D STATUS 25([place])VITAMIN D RANGE (ng/mL) Deficient <20 Insufficient 20 to <30 Sufficient 30 to 100 Reference: Nathalia MF,Emi NC, Christopher NAVAS, et al. Evaluation,treatment, and prevention of vitamin D deficiency; an Endocrine Society clinical practice guideline. JCEM. 2010; 96(7):191-.PERFORMED BY:[address] [place] [phone] MEDICAL DIRECTORNATALIA MIKE M.D. Performed By: #### L IPID, [id number], TSH3 wRFLX ####[facility] [address] [place], [place] [address] [address] [place] Vitamin D+Metabolites [Mass/ volume] in Serum or PlasmaOrdered By: rBaulio Dukes on 03-29-2023 Vitamin D+Metabolites [Mass/Vol] 20.4 ng/mL 30-100 [facility] Comment on above: VITAMIN D STATUS 25( [place])VITAMIN D RANGE (ng/mL) Deficient <20 Insufficient 20 to <30Sufficient 30 to 100Reference: Nathalia MF,Emi DUFFY, Christopher NAVAS, et al. Evaluation,treatment, and prevention of vitamin D deficiency; an Endocrine Society clinical practice guideline. JCEM. 2010; 96(7):1911-30. Glucose Glucometer (BldC) [M ass/Vol]Ordered By: Braulio Dukes on 01-31-2023 Glucose [Mass/Vol] 240 mg/dL [facility] Glucose Poct Glucometerson 0 01-31-2023 Commemt1 Glu2: Cleaned Meter Normal [facility] Comment on above: Result Comment: PERF ORMED BY:[address] [address] [address] [place] [phone] MEDICAL DIRECTORNATALIA MIKE M.D. Performed By: #### G LULS ####Point of Care testing, Glucose [Mass/Vol] 240 mg/dL Normal [facility] Comment on above: Result Comment: [place] Glucose Reference Range is dependent on time and content of last meal. Glucose of more than 200 mg/dL in a nonstressed, ambulatory subject supports the diagnosis of Diabetes Mellitus. Performed By: #### G LULS ####Point of Care testing, No Panel InformationOrdered By: Braulio Dukes on 01-31-2023 Glu2: cleaned meter [facility] Complete Blood Count Auto Di ffon 01-29-2023 Basophils (Bld) [#/Vol] 0.1 10*3/uL Normal 0.0-0.2 [facility] Comment on above: Result Comment: PERF ORMED BY:[address] [place], [place] [phone] MEDICAL DIRECTORNATALIA MIKE M.D. Performed By: #### C MP, CBC ####[address] [address] [place] Basophils/100 WBC (Bld) 0.9 % Normal . [facility] Comment on above: Performed By: #### C MP, CBC ####[address] [address] [place] Eosinophils (Bld) [#/Vol] 0.8 10*3/uL High 0.0-0.45 [facility] Comment on above: Performed By: #### C MP, CBC ####[address] [address] [place] Eosinophils/100 WBC (Bld) 9.4 % Normal . [facility] Comment on above: Performed By: #### C MP, CBC ####[address] [address] [place] Erythrocyte distribution width (RBC) [Ratio] 13.0 % Normal 11.9-15.3 [facility] Comment on above: Performed By: #### C MP, CBC ####[address] [address] [place] Hematocrit (Bld) [Volume fraction] 37.8 % Normal 34.0-46.4 [facility] Comment on above: Performed By: #### C MP, CBC ####[address] [address] [place] Hemoglobin (Bld) [Mass/Vol] 13.0 g/dL Normal 11.8-15.4 [facility] Comment on above: Performed By: #### C MP, CBC ####[facility] [place] [address] [place] Lymphocytes (Bld) [#/Vol] 2.5 10*3/uL Normal 1.00-4.8 [facility] Comment on above: Performed By: #### C MP, CBC ####[address] [address] [place] Lymphocytes/100 WBC (Bld) 31.0 % Normal . [facility] Comment on above: Performed By: #### C MP, CBC ####[address] [address] [place] MCH (RBC) [Entitic mass] 29.4 pg Normal 24.7-34.3 [facility] Comment on above: Performed By: #### C MP, CBC ####[place] [id number] [place] MCV (RBC) [Entitic vol] 85.5 fL Normal 80-100 [facility] Comment on above: Performed By: #### C MP, CBC ####[place] [id number] [place] Mean Corpuscular HGB Conc 34.4 g/dL Normal 32.0-35.0 [facility] Comment on above: Performed By: #### C MP, CBC ####[address] [address] [place] Monocytes (Bld) [#/Vol] 0.7 10*3/uL Normal 0.0-0.8 [facility] Comment on above: Performed By: #### C MP, CBC ####[address] [address] [place] Monocytes/100 WBC (Bld) 18.34 % Normal 0.00-20.00 [facility] Comment on above: Performed By: #### C MP, CBC ####[place] [id number] [place] Monocytes/100 WBC (Bld) 8.9 % Normal . [facility] Comment on above: Performed By: #### C MP, CBC ####[facility] [place] [address] [place] Neutrophils (Bld) [#/Vol] 4.0 10*3/uL Normal 1.8-7.7 [facility] Comment on above: Performed By: #### C MP, CBC ####[address] [address] [place] Neutrophils/100 WBC (Bld) 49.8 % Normal . [facility] Comment on above: Performed By: #### C MP, CBC ####[address] [address] [place] NRBC% 0.1 /100{WBC} Normal 0-0.5 [facility] Comment on above: Performed By: #### C MP, CBC ####[address] [address] [place] Platelet mean volume (Bld) [Entitic vol] 6.6 fL Normal 6.3-10.7 [facility] Comment on above: Performed By: #### C MP, CBC ####[address] [address] [place] Platelets (Bld) [#/Vol] 202 10*3/uL Normal 150-450 [facility] Comment on above: Performed By: #### C MP, CBC ####[address] [address] [place] RBC (Bld) [#/Vol] 4.42 10*6/uL Normal 3.60-5.00 [facility] Comment on above: Performed By: #### C MP, CBC ####[address] [address] [place] WBC (Bld) [#/Vol] 8.1 10*3/uL Normal 3.8-11.6 [facility] Comment on above: Performed By: #### C MP, CBC ####[address] [address] [place] Comprehensive Metabolic Pane ben 01-29-2023 Albumin [Mass/Vol] 4.0 g/dL Normal 3.5-5.7 [facility] Comment on above: Performed By: #### C MP, CBC ####[facility] [place] [address] [place] Albumin/Globulin [Mass ratio] 1.2 {ratio} Normal [facility] Comment on above: Performed By: #### C MP, CBC ####[facility] [place] [address] [place] ALP [Catalytic activity/Vol] 73 U/L Normal 34-104 [facility] Comment on above: Performed By: #### C MP, CBC ####[place] [place] [address] [place] ALT [Catalytic activity/Vol] 23 U/L Normal 7-52 [facility] Comment on above: Performed By: #### C MP, CBC ####[address] [address] [place] Anion gap [Moles/Vol] 9.0 mmol/L Normal 6.0-15.0 [facility] Comment on above: Performed By: #### C MP, CBC ####[address] [place] [address] [place] AST [Catalytic activity/Vol] 16 U/L Normal 13-39 [facility] Comment on above: Performed By: #### C MP, CBC ####[place] [address] [place] [address] [place] Bilirubin [Mass/Vol] 0.3 mg/dL Normal 0.3-1.0 [facility] Comment on above: Performed By: #### C MP, CBC ####[facility] [place] [address] [place] Calcium [Mass/Vol] 9.2 mg/dL Normal 8.6-10.3 [facility] Comment on above: Performed By: #### C MP, CBC ####[facility] [place] [address] [place] Chloride [Moles/Vol] 104 mmol/L Normal 98-107 [facility] Comment on above: Performed By: #### C MP, CBC ####[facility] [place] [address] [place] CO2 [Moles/Vol] 31.8 mmol/L High 21.0-31.0 [facility] Comment on above: Performed By: #### C MP, CBC ####[place] [address] [place] [address] [place] Creatinine [Mass/Vol] 0.72 mg/dL Normal 0.60-1.20 [facility] Comment on above: Performed By: #### C MP, CBC ####[address] [address] [place] Creatinine Clr Calc Pharmacy 131.06 [facility] Comment on above: Result Comment: PERF ORMED BY:[address] [place], [place] [phone] MEDICAL DIRECTORNATALIA MIKE M.D. Performed By: #### C MP, CBC ####[place] [id number] [place] GFR/1.73 sq M.predicted MDRD (S/P/Bld) [Vol rate/Area] mL/min/{1.73_m2} [facility] Comment on above: Performed By: #### C MP, CBC ####[place] [id number] [place] Globulin (S) [Mass/Vol] 3.3 g/dL [facility] Comment on above: Performed By: #### C MP, CBC ####[place] [id number] [place] Glucose [Mass/Vol] 84 mg/dL Normal 70-100 [facility] Comment on above: Result Comment: [place] Glucose Reference Range is dependent on time and content of last meal. Glucose of more than 200 mg/dL in a nonstressed, ambulatory subject supports the diagnosis of Diabetes Mellitus. ADA recommended reference range Performed By: #### C MP, CBC ####[place] [id number] [place] Potassium [Moles/Vol] 3.8 mmol/L Normal 3.5-5.1 [facility] Comment on above: Performed By: #### C MP, CBC ####[address] [address] [place] Protein [Mass/Vol] 7.3 g/dL Normal 6.4-8.9 [facility] Comment on above: Performed By: #### C MP, CBC ####[address] [address] [place] Sodium [Moles/Vol] 141 mmol/L Normal 136-145 [facility] Comment on above: Performed By: #### C MP, CBC ####[address] [address] [place] Urea nitrogen [Mass/Vol] 18 mg/dL Normal 7-25 [facility] Comment on above: Performed By: #### C MP, CBC ####[address] [address] [place] ECG 12 lead ECGon 01-29-2023 ECG [address] [facility] Ethyl Alcohol Profileon 08- Ethanol [Mass/Vol] mg/dL Normal [facility] Comment on above: Performed By: #### E KAYA ####[address] [address] [place] Percent Ethanol Not performed Normal [facility] Comment on above: Result Comment: PERF ORMED BY:[place] [address] [place] [place], [place] [phone] MEDICAL DIRECTORNATALIA MIKE M.D. Performed By: #### E KAYA ####[address] [address] [place] Glucose Poct Glucometerson 0 01-29-2023 Glucose [Mass/Vol] 214 mg/dL Normal [facility] Comment on above: Result Comment: [facility] Glucose Reference Range is dependent on time and content of last meal. Glucose of more than 200 mg/dL in a nonstressed, ambulatory subject supports the diagnosis of Diabetes Mellitus.PERFORMED BY:[address] [address] [place] [place], [place] [phone] MEDICAL DIRECTORNATALIA MIKE M.D. Performed By: #### G LUTRAY ####Point of Care testing, Glucose [Mass/Vol] 190 mg/dL Normal [facility] Comment on above: Result Comment: [facility] Glucose Reference Range is dependent on time and content of last meal. Glucose of more than 200 mg/dL in a nonstressed, ambulatory subject supports the diagnosis of Diabetes Mellitus.PERFORMED BY:[address] [place], [place] [phone] MEDICAL DIRECTORNATALIA MIKE M.D. Performed By: #### G LUTRAY ####Point of Care testing, Glucose [Mass/Vol] 78 mg/dL Normal [facility] Comment on above: Result Comment: [facility] Glucose Reference Range is dependent on time and content of last meal. Glucose of more than 200 mg/dL in a nonstressed, ambulatory subject supports the diagnosis of Diabetes Mellitus.PERFORMED BY:[place] [address] [address] [place], [place] [phone] MEDICAL DIRECTORNATALIA MIKE M.D. Performed By: #### G LUTRAY ####Point of Care testing, US renal BIon 01-29-2023 US renal BI Normal [facility] Alanine aminotransferase [En zymatic activity/volume] in Serum or PlasmaOrdered By: Vivek Ceballos on 01-28-2023 ALT [Catalytic activity/Vol] 23 U/L 7-52 [facility] Albumin [Mass/volume] in Ser um or Plasma by Bromocresol green (BCG) dye binding methoOrdered By: Vivek Ceballos on 01-28-2023 Albumin BCG dye [Mass/Vol] 4.0 g/dL 3.5-5.7 [facility] Alkaline phosphatase [Enzyma tic activity/volume] in Serum or PlasmaOrdered By: Vivek Ceballos on 01-28-2023 ALP [Catalytic activity/Vol] 73 U/L 34-104 [facility] Amphetamine Screen Ql (U)Ord ered By: Vivek Ceballos on 01-28-2023 Amphetamines Ql (U) Negative Negative [facility] Aspartate aminotransferase [ Enzymatic activity/volume] in Serum or PlasmaOrdered By: Vivek Ceballos on 01-28-2023 AST [Catalytic activity/Vol] 16 U/L 13-39 [facility] Automated erythrocytes count in urine sediment (number/area)Ordered By: Vivek Ceballos on 01-28-2023 RBC Auto (Urine sed) [#/Area] Innumerable [HPF] 0-4 [facility] Automated leukocytes count i n urine sediment (number/area)Ordered By: Vivek Ceballos on 01-28-2023 WBC Auto (Urine sed) [#/Area] 10-19 [HPF] 0-4 [facility] Bacteria identified Cx Nom ( U)Ordered By: Vivek Ceballos on 01-28-2023 Urine culture routine Strep. agalactiae Grp B [facility] Barbiturates [Presence] in U rine by Screen methodOrdered By: Vivek Ceballos on 01-28-2023 Barbiturates Screen Ql (U) Negative Negative [facility] Basophils Auto (Bld) [#/Vol] Ordered By: Vivek Ceballos on 01-28-2023 Basophils (Bld) [#/Vol] 0.1 10*3/uL 0.0-0.2 [facility] Basophils/100 WBC Auto (Bld) Ordered By: Vivek Ceballos on 01-28-2023 Basophils/100 WBC (Bld) 0.9 % . [facility] Benzodiazepines Screen Ql (U )Ordered By: Vivek Ceballos on 01-28-2023 Benzodiazepines Ql (U) Negative Negative [facility] Benzoylecgonine [Presence] i n Urine by Screen methodOrdered By: Vievk Ceballos on 01-28-2023 Benzoylecgonine Screen Ql (U) Negative Negative [facility] Bilirubin Test strip Ql (U)O rdered By: Vivek Ceballos on 01-28-2023 Bilirubin Ql (U) Negative Negative [facility] Bilirubin.total [Mass/volume ] in Serum or PlasmaOrdered By: Vivek Ceballos on 01-28-2023 Bilirubin [Mass/Vol] 0.3 mg/dL 0.3-1.0 [facility] C Urineon 01-28-2023 Bacteria identified Cx Nom (U) Normal [facility] Comment on above: Performed By: #### 1 [id number] ####[facility] [address] [place] [address] Calcium [Mass/volume] in Ser um or PlasmaOrdered By: Vivek Ceballos on 01-28-2023 Calcium [Mass/Vol] 9.2 mg/dL 8.6-10.3 [facility] Cannabinoids [Presence] in U rine by Screen methodOrdered By: Vivek Ceballos on 01-28-2023 Cannabinoids Screen Ql (U) Negative Negative [facility] Carbon dioxide, total [Moles /volume] in Serum or PlasmaOrdered By: Vivek Ceballos on 01-28-2023 CO2 [Moles/Vol] 31.8 mmol/L 21.0-31.0 [facility] Chloride [Moles/volume] in S jaron or PlasmaOrdered By: Vivek Ceballos on 01-28-2023 Chloride [Moles/Vol] 104 mmol/L 98-107 [facility] Color Auto (U)Ordered By: Juan Ceballos on 01-28-2023 Color (U) [place] Yellow [facility] Creatinine [Mass/volume] in Serum or PlasmaOrdered By: Vivek Ceballos on 01-28-2023 Creatinine [Mass/Vol] 0.72 mg/dL 0.60-1.20 [facility] Dipstick and Microscopicon 0 01-28-2023 Appearance (U) Cloudy Critically abnormal Clear [facility] Comment on above: Order Comment: Name Collection Type:: Clean-Voided Midstream Performed By: #### C UU, ADDONUAPLUS ####[facility] [id number] [place] [address] [place] Bacteria,Urine None Seen Normal None Seen [facility] Comment on above: Order Comment: Name Collection Type:: Clean-Voided Midstream Performed By: #### C UU, ADDONUAPLUS ####[facility] [id number] [place] [address] [place] Bilirubin,Urine Negative Normal Negative [facility] Comment on above: Order Comment: Name Collection Type:: Clean-Voided Midstream Performed By: #### C UU, ADDONUAPLUS ####[place] [address] [place] [address] [place] Color (U) [place] Critically abnormal Yellow [facility] Comment on above: Order Comment: Name Collection Type:: Clean-Voided Midstream Performed By: #### C UU, ADDONUAPLUS ####[address] [address] [place] Glucose Ql (U) Normal Normal Normal [facility] Comment on above: Order Comment: Name Collection Type:: Clean-Voided Midstream Performed By: #### C UU, ADDONUAPLUS ####[address] [address] [place] Hyaline Casts,Urine 0-8 Normal 0-8 [facility] Comment on above: Order Comment: Name Collection Type:: Clean-Voided Midstream Result Comment: PERF ORMED BY:[address] [place] [id number] MEDICAL DIRECTORNATALIA MIKE M.D. Performed By: #### C UU, ADDONUAPLUS ####[address] [address] [place] Ketones Ql (U) Trace High Negative [facility] Comment on above: Order Comment: Name Collection Type:: Clean-Voided Midstream Performed By: #### C UU, ADDONUAPLUS ####[address] [id number] [place] Leukocyte esterase Test strip Ql (U) 3+ High Negative [facility] Comment on above: Order Comment: Name Collection Type:: Clean-Voided Midstream Performed By: #### C UU, ADDONUAPLUS ####[place] [id number] [place] Nitrite,Urine Negative Normal Negative [facility] Comment on above: Order Comment: Name Collection Type:: Clean-Voided Midstream Performed By: #### C UU, ADDONUAPLUS ####[address] [address] [place] Occult Blood,Urine 3+ High Negative [facility] Comment on above: Order Comment: Name Collection Type:: Clean-Voided Midstream Result Comment: PERF ORMED BY:[address] [place], [place] [phone] MEDICAL DIRECTORNATALIA MIKE M.D. Performed By: #### C UU, ADDONUAPLUS ####[address] [address] [place] pH (U) 6.5 [pH] Normal 5.0-9.0 [facility] Comment on above: Order Comment: Name Collection Type:: Clean-Voided Midstream Performed By: #### C UU, ADDONUAPLUS ####[address] Protein,Urine Trace High Negative [facility] Comment on above: Order Comment: Name Collection Type:: Clean-Voided Midstream Performed By: #### C UU, ADDONUAPLUS ####[place] [id number] [place] RBC,Urine Innumerable High 0-4 [facility] Comment on above: Order Comment: Name Collection Type:: Clean-Voided Midstream Performed By: #### C UU, ADDONUAPLUS ####[place] [id number] [place] Specificy [place],Urine 1.023 Normal 1.001-1.[address] [facility] Comment on above: Order Comment: Name Collection Type:: Clean-Voided Midstream Performed By: #### C UU, ADDONUAPLUS ####[address] [address] [place] Squamous Epithelial Cell,Urine 5-9 High 0-2 [facility] Comment on above: Order Comment: Name Collection Type:: Clean-Voided Midstream Performed By: #### C UU, ADDONUAPLUS ####[place] [id number] [place] Urobilinogen,Urine Normal Normal Normal [facility] Comment on above: Order Comment: Name Collection Type:: Clean-Voided Midstream Performed By: #### C UU, ADDONUAPLUS ####[place] [id number] [place] WBC,Urine 10-19 High 0-4 [facility] Comment on above: Order Comment: Name Collection Type:: Clean-Voided Midstream Performed By: #### C UU, ADDONUAPLUS ####[place] [id number] [place] Drug Screen,Urineon 01-29-20 23 Amphetamine Screen,Urine Negative Normal Negative [facility] Comment on above: Performed By: #### U RDS ####[address] Barbiturate Screen,Urine Negative Normal Negative [facility] Comment on above: Performed By: #### U RDS ####[address] Benzodiazepines Screen,Urine Negative Normal Negative [facility] Comment on above: Performed By: #### U RDS ####[address] Cannabinoid Screen,Urine Negative Normal Negative [facility] Comment on above: Result Comment: Thes e are unconfirmed results and should not be used for legal purposes. Drug Cut-Off Concentration: AMPH 1000 ng/mL SONIA 200 ng/mL JEREMY 200 ng/mL COCM 300 ng/mL OP 300 ng/mL PCP 25 ng/mL THC 20 ng/mLPERFORMED BY:[address] [place], [place] [phone] MEDICAL DIRECTORNATALIA MIKE M.D. Performed By: #### U RDS ####[place] [id number] [place] Cocaine Screen,Urine Negative Normal Negative [facility] Comment on above: Performed By: #### U RDS ####[place] [id number] [place] Opiate Screen,Urine Negative Normal Negative [facility] Comment on above: Performed By: #### U RDS ####[address] [place] [address] [place] Phencyclidine Screen,Urine Negative Normal Negative [facility] Comment on above: Performed By: #### U RDS ####[facility] [id number] Eosinophils Auto (Bld) [#/Vo l]Ordered By: Vivek Ceballos on 01-28-2023 Eosinophils (Bld) [#/Vol] 0.8 10*3/uL 0.0-0.45 [facility] Eosinophils/100 WBC Auto (Bl d)Ordered By: Vivek Ceballos on 01-28-2023 Eosinophils/100 WBC (Bld) 9.4 % . [facility] Erythrocyte distribution wid th Auto (RBC) [Ratio]Ordered By: Vivek Ceballos on 01-28-2023 Erythrocyte distribution width (RBC) [Ratio] 13.0 % 11.9-15.3 [facility] Ethanol [Mass/volume] in Ser um or PlasmaOrdered By: Vivek Ceballos on 01-28-2023 Ethanol [Mass/Vol] mg/dL [facility] Ethanol [Mass/Vol] TNP [facility] Globulin Calc (S) [Mass/Vol] Ordered By: Vivek Ceballos on 01-28-2023 Globulin (S) [Mass/Vol] 3.3 g/dL [facility] Glucose [Mass/volume] in Ser um or PlasmaOrdered By: Vivek Ceballos on 01-28-2023 Glucose [Mass/Vol] 84 mg/dL 70-100 [facility] Hematocrit Auto (Bld) [Volum e fraction]Ordered By: Vivek Ceballos on 01-28-2023 Hematocrit (Bld) [Volume fraction] 37.8 % 34.0-46.4 [facility] Hemoglobin [Mass/volume] in BloodOrdered By: Vivek Ceballos on 01-28-2023 Hemoglobin (Bld) [Mass/Vol] 13.0 g/dL 11.8-15.4 [facility] Ketones Auto test strip (U) [Mass/Vol]Ordered By: Vivek Ceballos on 01-28-2023 Ketones (U) [Mass/Vol] Trace Negative [facility] Leukocytes [#/volume] correc suzanne for nucleated erythrocytes in Blood by Automated counOrdered By: Vivek Ceballos on 01-28-2023 WBC corrected for nucl RBC Auto (Bld) [#/Vol] 8.1 10*3/uL 3.8-11.6 [facility] Lymphocytes Auto (Bld) [#/Vo l]Ordered By: Vivek Ceballos on 01-28-2023 Lymphocytes (Bld) [#/Vol] 2.5 10*3/uL 1.00-4.8 [facility] Lymphocytes/100 WBC Auto (Bl d)Ordered By: Vivek Ceballos on 01-28-2023 Lymphocytes/100 WBC (Bld) 31.0 % . [facility] MCH Auto (RBC) [Entitic mass ]Ordered By: Vivek Ceballos on 01-28-2023 MCH (RBC) [Entitic mass] 29.4 pg 24.7-34.3 [facility] MCHC Auto (RBC) [Mass/Vol]Or dered By: Vivek Ceballos on 01-28-2023 MCHC (RBC) [Mass/Vol] 34.4 g/dL 32.0-35.0 [facility] MCV Auto (RBC) [Entitic vol] Ordered By: Vivek Ceballos on 01-28-2023 MCV (RBC) [Entitic vol] 85.5 fL 80-100 [facility] Monocyte distribution width [Entitic volume] in Blood by AutomatedOrdered By: Vivek Ceballos on 01-28-2023 Monocyte distribution width Auto (Bld) [Entitic vol] 18.34 % 0.00-20.00 [facility] Monocytes Auto (Bld) [#/Vol] Ordered By: Vivek Ceballos on 01-28-2023 Monocytes (Bld) [#/Vol] 0.7 10*3/uL 0.0-0.8 [facility] Monocytes/100 WBC Auto (Bld) Ordered By: Vivek Ceballos on 01-28-2023 Monocytes/100 WBC (Bld) 8.9 % . [facility] Neutrophils Auto (Bld) [#/Vo l]Ordered By: Vivek Ceballos on 01-28-2023 Neutrophils (Bld) [#/Vol] 4.0 10*3/uL 1.8-7.7 [facility] Neutrophils/100 WBC Auto (Bl d)Ordered By: Vivek Ceballos on 01-28-2023 Neutrophils/100 WBC (Bld) 49.8 % . [facility] Nitrite Test strip Ql (U)Ord ered By: Vivek Ceballos on 01-28-2023 Nitrite Ql (U) Negative Negative [facility] No Panel InformationOrdered By: Vivek Ceballos on 01-28-2023 > 60.0 mL/Min [facility] 131.06 [facility] 0-8 [LPF] 0-8 [facility] Nucleated erythrocytes [Pres ence] in Blood by Automated countOrdered By: Vivek Ceballos on 01-28-2023 Nucleated RBC Auto Ql (Bld) 0.1 /100{WBC} 0-0.5 [facility] Opiates [Presence] in Urine by Screen methodOrdered By: Vivek Ceballos on 01-28-2023 Opiates Screen Ql (U) Negative Negative [facility] Phencyclidine Screen Ql (U)O rdered By: Vivek Ceballos on 01-28-2023 Phencyclidine Ql (U) Negative Negative [facility] Platelet mean volume Auto (B ld) [Entitic vol]Ordered By: Vivek Ceballos on 01-28-2023 Platelet mean volume (Bld) [Entitic vol] 6.6 fL 6.3-10.7 [facility] Platelets Auto (Bld) [#/Vol] Ordered By: Vivek Ceballos on 01-28-2023 Platelets (Bld) [#/Vol] 202 10*3/uL 150-450 [facility] Potassium [Moles/volume] in Serum or PlasmaOrdered By: Vivek Ceballos on 01-28-2023 Potassium [Moles/Vol] 3.8 mmol/L 3.5-5.1 [facility] Protein Auto test strip (U) [Mass/Vol]Ordered By: Vivek Ceballos on 01-28-2023 Protein (U) [Mass/Vol] Trace mg/dL Negative F [facility] Protein [Mass/volume] in Ser um or PlasmaOrdered By: Vivek Ceballos on 01-28-2023 Protein [Mass/Vol] 7.3 g/dL 6.4-8.9 [facility] RBC Auto (Bld) [#/Vol]Ordere d By: Vivek Ceballos on 01-28-2023 RBC (Bld) [#/Vol] 4.42 10*6/uL 3.60-5.00 [facility] Serum or plasma albumin/glob ulin mass ratioOrdered By: Vivek Ceballos on 01-28-2023 Albumin/Globulin [Mass ratio] 1.2 {ratio} [facility] Serum or plasma anion gap de terminationOrdered By: Vivek Ceballos on 01-28-2023 Anion gap [Moles/Vol] 9.0 mmol/L 6.0-15.0 [facility] Sodium [Moles/volume] in Ser um or PlasmaOrdered By: Vivek Ceballos on 01-28-2023 Sodium [Moles/Vol] 141 mmol/L 136-145 [facility] Specific gravity Auto test s trip (U) [Rel density]Ordered By: Vivek Ceballos on 01-28-2023 Specific gravity (U) [Rel density] 1.023 1.001-1.[address] [facility] Squamous epithelial cells de tection in urine sediment by light microscopyOrdered By: Vivek Ceballos on 01-28-2023 Epithelial cells.squamous LM Ql (Urine sed) 5-9 [HPF] 0-2 [facility] Urea nitrogen [Mass/volume] in Serum or PlasmaOrdered By: Vivek Ceballos on 01-28-2023 Urea nitrogen [Mass/Vol] 18 mg/dL 7-25 [facility] Urine Cultureon 01-28-2023 Bacteria identified Cx Nom (U) ORGANISM: Strep. agalactiae Grp B (O:B) [place] Count 20,000 PERFORMED BY: [address] [place] [address] PATHOLOGIST [employer] NATALIA MIKE M.D. Normal [facility] Comment on above: Performed By: #### C UU, ADDONUAPLUS ####[facility] [place] [id number] [place] Urine bacteria detection by automated methodOrdered By: Vivek Ceballos on 01-28-2023 Bacteria Auto Ql (U) None seen None Seen [facility] Urine clarity by refractomet ry automatedOrdered By: Vivek Ceballos on 01-28-2023 Clarity Refractometry automated (U) Cloudy Clear [facility] Urine glucose measurement by automated test strip (mass/volume)Ordered By: Vivek Ceballos on 01-28-2023 Glucose Auto test strip (U) [Mass/Vol] Normal mg/dL Normal [facility] Urine hemoglobin detection b y automated test stripOrdered By: Vivek Ceballos on 01-28-2023 Hemoglobin Auto test strip Ql (U) 3+ Negative [facility] Urine leukocyte esterase det ection by automated test stripOrdered By: Vivek Ceballos on 01-28-2023 Leukocyte esterase Auto test strip Ql (U) 3+ Negative [facility] Urobilinogen Auto test strip (U) [Mass/Vol]Ordered By: Vivek Ceballos on 01-28-2023 Urobilinogen (U) [Mass/Vol] Normal mg/dL Normal [facility] WBC Auto (Bld) [#/Vol]Ordere d By: Vivek Ceballos on 01-28-2023 WBC (Bld) [#/Vol] 8.1 10*3/uL 3.8-11.6 [facility] pH Auto test strip (U)Ordere d By: Vivek Ceballos on 01-28-2023 pH (U) 6.5 [pH] 5.0-9.0 [facility] Discharge Instructionson Discharge Instructions [id number]:1 27 Normal [facility] Auto Diffon 01-26-2023 Basophils/100 WBC (Bld) 0.9 % Normal 0.0-2.0 [facility] Comment on above: Order Comment: Order Added by Discern Expert. Performed By: #### 2 042130, 5333682, 5909205, 7422223, 54622565, 8820509 ####[place] [address] [place] [address] Basophils/Leukocytes Auto (Bld) [Pure # fraction] 0.1 E9/L Normal 0.0-0.2 [facility] Comment on above: Order Comment: Order Added by Discern Expert. Performed By: #### 2 600815, 7909809, 8808632, 5726610, 69072144, 7859881 ####[facility] [address] [place] [address] Eosinophils/100 WBC (Bld) 8.5 % High 0.0-8.0 [facility] Comment on above: Order Comment: Order Added by Discern Expert. Performed By: #### 2 037550, 1214941, 4571616, 5128602, 36435445, 6661458 ####[place] [address] [place] [address] Eosinophils/Leukocytes Auto (Bld) [Pure # fraction] 0.6 E9/L High 0.0-0.5 [facility] Comment on above: Order Comment: Order Added by Discern Expert. Performed By: #### 2 826670, 3751750, 3865267, 5190177, 49943367, 7451029 ####[address] [address] Lymphocytes/100 WBC (Bld) 34.0 % Normal 14.0-50.0 [facility] Comment on above: Order Comment: Order Added by Discern Expert. Performed By: #### 2 323209, 6368616, 0771920, 3238966, 25865531, 0578851 ####[place] [address] [place] [address] Lymphocytes/Leukocytes Auto (Bld) [Pure # fraction] 2.5 E9/L Normal 1.0-4.0 [facility] Comment on above: Order Comment: Order Added by Discern Expert. Performed By: #### 2 997247, 6391355, 8450742, 0207096, 56734699, 8229640 ####[place] [address] [place] [address] Monocytes/100 WBC (Bld) 7.7 % Normal 4.0-14.0 [facility] Comment on above: Order Comment: Order Added by Discern Expert. Performed By: #### 2 937483, 1086768, 4408126, 7258294, 46191197, 7816520 ####[address] [address] Monocytes/Leukocytes Auto (Bld) [Pure # fraction] 0.6 E9/L Normal 0.2-1.0 [facility] Comment on above: Order Comment: Order Added by Discern Expert. Performed By: #### 2 337172, 4306672, 5636796, 7473441, 26435344, 6808398 ####[facility] [address] [place] [address] Neutrophils/100 WBC (Bld) 48.9 % Normal 36.0-75.0 [facility] Comment on above: Order Comment: Order Added by Discern Expert. Performed By: #### 2 662693, 1273467, 6207859, 2088792, 35498588, 4658768 ####[facility] [address] [place] [address] Neutrophils/Leukocytes Auto (Bld) [Pure # fraction] 3.6 E9/L Normal 2.0-7.5 [facility] Comment on above: Order Comment: Order Added by Discern Expert. Performed By: #### 2 625619, 0805578, 3291363, 2699865, 34264829, 0199362 ####[facility] [address] [place] [address] BMPon 01-26-2023 Creatinine [Mass/Vol] 0.6 mg/dL Normal 0.5-1.3 [facility] Comment on above: Performed By: #### 2 505305, 6621497, 3863496, 7152679, 52554020, 2657208 ####[facility] [address] [place] [address] Urea nitrogen [Mass/Vol] 14 mg/dL Normal 5-21 [facility] Comment on above: Performed By: #### 2 554809, 6415934, 9093433, 6887105, 59612450, 1056993 ####[facility] [address] [place] [address] Urea nitrogen/Creatinine [Mass ratio] 23 No Units High 10-20 [facility] Comment on above: Performed By: #### 2 551122, 3328678, 2098125, 5280301, 99903790, 2556844 ####[facility] [address] [place] [address] Anion gap [Moles/Vol] 14 mmol/L Normal 6-16 [facility] Comment on above: Performed By: #### 2 842496, 3354374, 7707638, 0901812, 01715125, 7022833 ####[facility] [address] [place] [address] Calcium [Mass/Vol] 9.7 mg/dL Normal 8.9-11.1 [facility] Comment on above: Performed By: #### 2 113149, 8021792, 0358607, 3986060, 86227653, 6367750 ####[facility] [address] [facility] [address] Chloride [Moles/Vol] 106 mmol/L Normal 101-111 [facility] Comment on above: Performed By: #### 2 771423, 8074396, 6387661, 9075078, 57839730, 1274676 ####[facility] [address] [place] [address] CO2 [Moles/Vol] 26 mmol/L Normal 21-31 [facility] Comment on above: Performed By: #### 2 230173, 2595425, 5396398, 5725898, 70471163, 8406673 ####[facility] [address] [facility] [address] Glucose [Mass/Vol] 77 mg/dL Normal 55-199 [facility] Comment on above: Result Comment: If t his glucose result represents a fasting glucose, interpretation should refer to the following reference range: 55-99 mg/dL Performed By: #### 2 113618, 8014407, 3360865, 1658055, 66456372, 1163015 ####[facility] [address] [facility] [place] [address] Potassium [Moles/Vol] 3.7 mmol/L Normal 3.5-5.3 [facility] Comment on above: Performed By: #### 2 250713, 4709818, 9878406, 2699190, 14228285, 6604740 ####[facility] [address] [place] [address] Sodium [Moles/Vol] 142 mmol/L Normal 135-145 [facility] Comment on above: Performed By: #### 2 506594, 8163213, 0318311, 2844734, 75019243, 3759474 ####[address] [address] CBC w/ Auto Diffon Erythrocyte distribution width (RBC) [Ratio] 13.2 % Normal 10.9-14.2 [facility] Comment on above: Performed By: #### 2 287381, 2669021, 4798354, 7849824, 32392549, 3524478 ####[address] [address] Hematocrit (Bld) [Volume fraction] 40.9 % Normal 34.0-46.0 [facility] Comment on above: Performed By: #### 2 999498, 6293996, 9785076, 0757308, 18223798, 2858387 ####[facility] [address] [place] [address] Hemoglobin (Bld) [Mass/Vol] 14.2 g/dL Normal 12.0-16.0 [facility] Comment on above: Performed By: #### 2 014718, 0004503, 2787131, 4108423, 18234837, 7422918 ####[facility] [address] [place] [address] MCH (RBC) [Entitic mass] 29.6 pg Normal 27.0-34.0 [facility] Comment on above: Performed By: #### 2 339065, 7131301, 3102600, 5870462, 86657687, 3858008 ####[facility] [address] [place] [address] MCHC (RBC) [Mass/Vol] 34.7 g/dL Normal 31.4-36.0 [facility] Comment on above: Performed By: #### 2 007750, 1611890, 4631675, 9448351, 06864587, 2768832 ####[address] [place] [address] MCV (RBC) [Entitic vol] 85.2 fL Normal 80.0-100.0 [facility] Comment on above: Performed By: #### 2 160962, 7609753, 9044562, 5055930, 12679230, 2389988 ####[address] [address] Platelet mean volume (Bld) [Entitic vol] 6.4 fL Normal 6.4-10.8 [facility] Comment on above: Performed By: #### 2 492434, 2802278, 3397277, 9828497, 87458873, 5827809 ####[address] [address] Platelets (Bld) [#/Vol] 235.0 E9/L Normal 150.0-500. 0 [facility] Comment on above: Performed By: #### 2 673427, 5439819, 0939747, 1714561, 31572846, 3026918 ####[address] [address] RBC (Bld) [#/Vol] 4.8 E12/L Normal 4.3-5.9 [facility] Comment on above: Performed By: #### 2 705113, 4383498, 1132780, 3128669, 97240530, 8697302 ####[address] [address] WBC corrected for nucl RBC Auto (Bld) [#/Vol] 7.4 E9/L Normal 4.0-11.0 [facility] Comment on above: Performed By: #### 2 729139, 1557937, 3004933, 8858747, 59982903, 6485387 ####[facility] [address] [place] [address] CHEMISTRYOrdered By: Lab ROP User on 01-26-2023 Glucose [Mass/Vol] 64 mg/dL Normal 55 - 99 mg/dL FT POC Subsection Comment on above: Result Comment: Joselyn jennings RN/MD POC Device SN [id number] Invalid Interpretation Code FT POC Subsection POC User ID [id number] Invalid Interpretation Code FT POC Subsection POC Username JUANCARLOS CASTANEDA Invalid Interpretation Code FT POC Subsection CHEMISTRYOrdered By: SYSTEM SYSTEM on 01-26-2023 Albumin [Mass/Vol] 4.2 g/dL Normal 3.3 - 5.0 gm/dL [facility] Albumin/Globulin [Mass ratio] 1.0 {ratio} Low 1.1 - 2.2 [facility] ALP [Catalytic activity/Vol] 83 [iU]/d Normal 21 - 98 Int._Unit/ L [facility] ALT No additional P-5'-P [Catalytic activity/Vol] 28 [iU]/d Normal 6 - 46 Int._Unit/ L [facility] Anion gap [Moles/Vol] 14 mmol/L Normal 6 - 16 mEq/L [facility] AST [Catalytic activity/Vol] 23 [iU]/d Normal 5 - 43 Int._Unit/ L [facility] Bilirubin [Mass/Vol] 0.3 mg/dL Normal 0.0 - 1 .1 mg/dL [facility] Bilirubin.direct [Mass/Vol] mg/dL Normal 0.1 - 0.4 mg/dL [facility] Bilirubin.indirect [Mass or moles/Vol] Unable to Calculate mg/dL Invalid Interpretation Code 0.1 - 0.9 mg/dL [facility] Calcium [Mass/Vol] 9.7 mg/dL Normal 8.9 - 11. 1 mg/dL [facility] Chloride [Moles/Vol] 106 mmol/L Normal 101 - 1 11 mmol/L [facility] CO2 [Moles/Vol] 26 mmol/L Normal 21 - 31 mmol/L [facility] Creatinine [Mass/Vol] 0.6 mg/dL Normal 0.5 - 1.3 mg/dL [facility] GFR/1.73 sq M.predicted among non-blacks MDRD (S/P/Bld) [Vol rate/Area] 111 mL/min/1.73 m2 Normal >=59mL/min /1.73 m2 [facility] Chem S Globulin (S) [Mass/Vol] 4.0 g/dL Normal 1.4 - 4.0 gm/dL [facility] Glucose [Mass/Vol] 77 mg/dL Normal 55 - 199 mg/dL [facility] Remisol Lipase [Catalytic activity/Vol] 41 U/L Normal 13 - 58 unit/L [facility] Remisol Potassium [Moles/Vol] 3.7 mmol/L Normal 3.5 - 5.3 mmol/L [facility] Remisol Protein [Mass/Vol] 8.2 g/dL High 6.0 - 7.8 gm/dL [facility] Sodium [Moles/Vol] 142 mmol/L Normal 135 - 145 mmol/L [facility] Remisol Urea nitrogen [Mass/Vol] 14 mg/dL Normal 5 - 21 mg/dL [facility] Remisol Urea nitrogen/Creatinine [Mass ratio] 23 mg/mg High 10 - 20 [facility] Remisol Capillary Glucose POCon 12-29 Glucose [Mass/Vol] 64 mg/dL Normal 55-99 [facility] Comment on above: Result Comment: Joselyn jennings RN/ Performed By: #### 2 [id number] ####[facility] [address] [place] [address] Consent for Treatmenton 12-29 Consent for Treatment [id number]:12 7 Normal [facility] ED Clinical Summaryon 2022 ED Clinical Summary Normal [facility] ED Note-Physicianon 01-27-20 23 ED Note-Physician Normal [facility] Comment on above: Result Comment: Elec tronically Signed By: Grey Putnam DO\.br\Date and Time Signed: 01/26/23 21:15 EDT ED Patient Education Noteon 01-26-2023 ED Patient Education Note Normal [facility] ED Patient Summaryon 023 ED Patient Summary Normal [facility] HEMATOLOGYOrdered By: SYSTEM SYSTEM on 01-26-2023 Basophils/100 WBC (Bld) 0.9 % Normal 0.0 - 2.0 % [facility] HemeAutoSS Basophils/Leukocytes Auto (Bld) [Pure # fraction] 0.1 E9/L Normal 0.0 - 0.2 E9/L [facility] HemeAutoSS Eosinophils/100 WBC (Bld) 8.5 % High 0.0 - 8.0 % [facility] HemeAutoSS Eosinophils/Leukocytes Auto (Bld) [Pure # fraction] 0.6 E9/L High 0.0 - 0.5 E9/L [facility] HemeAutoSS Lymphocytes/100 WBC (Bld) 34.0 % Normal 14.0 - 50.0 % [facility] HemeAutoSS Lymphocytes/Leukocytes Auto (Bld) [Pure # fraction] 2.5 E9/L Normal 1.0 - 4.0 E9/L [facility] HemeAutoSS Monocytes/100 WBC (Bld) 7.7 % Normal 4.0 - 14.0 % [facility] HemeAutoSS Monocytes/Leukocytes Auto (Bld) [Pure # fraction] 0.6 E9/L Normal 0.2 - 1.0 E9/L [facility] HemeAutoSS Neutrophils/100 WBC (Bld) 48.9 % Normal 36.0 - 75.0 % [facility] HemeAutoSS Neutrophils/Leukocytes Auto (Bld) [Pure # fraction] 3.6 E9/L Normal 2.0 - 7.5 E9/L [facility] HemeAutoSS HEMATOLOGYOrdered By: Mark Kate on 01-26-2023 Erythrocyte distribution width (RBC) [Ratio] 13.2 % Normal 10.9 - 14.2 % [facility] HemeAutoSS Hematocrit (Bld) [Volume fraction] 40.9 % Normal 34.0 - 46.0 % [facility] HemeAutoSS Hemoglobin (Bld) [Mass/Vol] 14.2 g/dL Normal 12.0 - 16.0 gm/dL [facility] HemeAutoSS MCH (RBC) [Entitic mass] 29.6 pg Normal 27.0 - 34.0 pg [facility] HemeAutoSS MCHC (RBC) [Mass/Vol] 34.7 g/dL Normal 31.4 - 36.0 gm/dL [facility] HemeAutoSS MCV (RBC) [Entitic vol] 85.2 fL Normal 80.0 - 100.0 fL [facility] HemeAutoSS Platelet mean volume (Bld) [Entitic vol] 6.4 fL Normal 6.4 - 10.8 fL [facility] HemeAutoSS Platelets (Bld) [#/Vol] 235.0 E9/L Normal 150.0 - 500.0 E9/L [facility] HemeAutoSS RBC (Bld) [#/Vol] 4.8 E12/L Normal 4.3 - 5.9 E12/L [facility] HemeAutoSS WBC corrected for nucl RBC Auto (Bld) [#/Vol] 7.4 E9/L Normal 4.0 - 11.0 E9/L [facility] [place] [facility] Hep Func Panelon 01-26-2023 Bilirubin.indirect [Mass or moles/Vol] UTC Abnormal 0.1-0.9 [facility] Comment on above: Result Comment: Resu lt verified by Discern Rule. Performed result UTC (Unable to Calculate) was sent as an Alpha code due the inability to calculate a valid numeric value. Performed By: #### [id number] ####[facility] [address] [place] [address] Albumin [Mass/Vol] 4.2 g/dL Normal 3.3-5.0 [facility] Comment on above: Performed By: #### 2 [id number], [id number] ####[facility] [address] [place] [address] Albumin/Globulin (S) [Mass conc ratio] 1.0 Low 1.1-2.2 [facility] Comment on above: Performed By: #### 2 485039, 3849062, 0273768, 1283385, 69345910, 2367055 ####[facility] [address] [place] [address] ALP [Catalytic activity/Vol] 83 Int._Unit/L Normal 21-98 [facility] Comment on above: Performed By: #### 2 227146, 7833249, 0439498, 0200015, 48808729, 6003834 ####[facility] [address] [place] [address] ALT No additional P-5'-P [Catalytic activity/Vol] 28 Int._Unit/L Normal 6-46 [facility] Comment on above: Performed By: #### 2 685462, 4559121, 3022248, 5830261, 00910134, 2125465 ####[facility] [address] [place] [address] AST [Catalytic activity/Vol] 23 Int._Unit/L Normal 5-43 [facility] Comment on above: Performed By: #### 2 107843, 5024230, 5560312, 0741310, 57805554, 2379966 ####[facility] [address] [place] [address] Bilirubin [Mass/Vol] 0.3 mg/dL Normal 0.0-1.1 [facility] Comment on above: Performed By: #### 2 195742, 9604228, 3733817, 9189614, 31045762, 3143155 ####[facility] [address] [place] [address] Globulin (S) [Mass/Vol] 4.0 g/dL Normal 1.4-4.0 [facility] Comment on above: Performed By: #### 2 756684, 4724402, 0476642, 8935962, 14364027, 6165116 ####[facility] [address] [place] [address] Protein [Mass/Vol] 8.2 g/dL High 6.0-7.8 [facility] Comment on above: Performed By: #### 2 566279, 8780267, 4103036, 5898139, 34446915, 2001173 ####[facility] [address] [place] [address] Bilirubin.direct [Mass/Vol] mg/dL Normal 0.1-0.4 [facility] Comment on above: Performed By: #### 2 555642, 1190921, 9987846, 5149091, 54021103, 1256552 ####[facility] [address] [place] [address] Lipase Levelon 01-26-2023 Lipase [Catalytic activity/Vol] 41 U/L Normal 13-58 [facility] Comment on above: Performed By: #### 2 676512, 4107170, 4795937, 4166254, 93358732, 6798831 ####[facility] [address] [place] [address] SEROLOGYOrdered By: Breann Torrez on 01-26-2023 HCG.beta subunit (U) [Moles/Vol] Negative Normal [facility] Sero U BetaHcg Qualon 01-26-2023 HCG.beta subunit (U) [Moles/Vol] Negative Normal [facility] Comment on above: Performed By: #### 2 [id number] ####[address] [address] UA With Cult Reflexon 2022 Bacteria LM Ql (Urine sed) 1+ /HPF Abnormal Trace [facility] Comment on above: Performed By: #### 1 0334279, 2458260 ####[address] [address] Bilirubin Ql (U) Negative Normal Negative [facility] Comment on above: Performed By: #### 1 4995267, 5644706 ####[address] [address] Clarity (U) SL CLOUDY Invalid Interpretation Code [facility] Comment on above: Performed By: #### 1 0155838, 7716896 ####[address] [address] Color (U) YELLOW Normal Yellow [facility] Comment on above: Performed By: #### 1 4862593, 5838395 ####[address] [address] Epithelial cells.squamous LM.HPF (Urine sed) [#/Area] 5-8 Normal 0-2 [facility] Comment on above: Performed By: #### 1 4273726, 7907033 ####[facility] [address] [place] [address] Glucose Test strip (U) [Mass/Vol] TRACE Abnormal Negative [facility] Comment on above: Performed By: #### 1 2959510, 9271500 ####[facility] [address] [place] [address] Hemoglobin Ql (U) 3+ Abnormal Negative [facility] Comment on above: Performed By: #### 1 0124037, 3107330 ####[facility] [address] [place] [address] Ketones (U) [Mass/Vol] TRACE Invalid Interpretation Code Negative [facility] Comment on above: Performed By: #### 1 9411018, 9275580 ####[address] [address] [place].plasma/[place] .RBC (Bld) [Mass ratio] >75 Abnormal 0-3 [facility] Comment on above: Performed By: #### 1 8827449, 1799614 ####[facility] [address] [place] [address] Mucus Ql (Urine sed) TRACE Normal [facility] Comment on above: Performed By: #### 1 0377358, 6648587 ####[facility] [address] [place] [address] Nitrite Ql (U) Negative Normal Negative [facility] Comment on above: Performed By: #### 1 2915773, 1368751 ####[facility] [address] [place] [address] pH (U) 5.5 [pH] Invalid Interpretation Code 5.0-9.0 [facility] Comment on above: Performed By: #### 1 1446289, 5442628 ####[facility] [address] [place] [address] Protein (U) [Mass/Vol] TRACE Abnormal Negative [facility] Comment on above: Performed By: #### 1 7798722, 5675594 ####[facility] [address] [place], [place] [address] Specific gravity (U) [Rel density] >=1.030 Invalid Interpretation Code 1.005-1.03 0 [facility] Comment on above: Performed By: #### 1 9686388, 1667798 ####[place] [address]45457 Type of Urine collection method Clean Catch Normal [facility] Comment on above: Performed By: #### 1 2940890, 4626010 ####[place] [address]45457 Urobilinogen Qn (U) 0.2 {Diaz'U}/dL Normal 0.0-1.0 [facility] Comment on above: Performed By: #### 1 1438215, 6725485 ####[place] [address] WBC Auto Ql (U) 1+ Abnormal Negative [facility] Comment on above: Performed By: #### 1 6029097, 6501200 ####[place] [address] WBC LM.HPF (Urine sed) [#/Area] 6-15 Abnormal 0-5 [facility] Comment on above: Performed By: #### 1 4607823, 1668463 ####[place] [address] URINALYSISOrdered By: Yareli Torrez on 01-26-2023 Bacteria LM Ql (Urine sed) 1+ /HPF Invalid Interpretation Code Trace/HPF [facility] UA Auto SS Bilirubin Ql (U) Negative (01/26/23 8:28 PM) Normal Negative [facility] UA Auto SS Clarity (U) SL CLOUDY Invalid Interpretation Code [facility] UA Auto SS Color (U) Yellow (01/26/23 8:28 PM) Normal Yellow [facility] UA Auto SS Epithelial cells.squamous LM.HPF (Urine sed) [#/Area] 5-8 /HPF Normal 0-2/HPF [facility] UA Aut o SS Glucose Test strip (U) [Mass/Vol] Trace *ABN* (01/26/23 8:28 PM) Invalid Interpretation Code Negative [facility] UA Auto SS Hemoglobin Ql (U) 3+ *ABN* (01/26/23 8:28 PM) Invalid Interpretation Code Negative [facility] UA Auto SS Ketones (U) [Mass/Vol] Trace *NA* (01/26/23 8:28 PM) Invalid Interpretation Code Negative [facility] UA Auto SS [place].plasma/[place] .RBC (Bld) [Mass ratio] >75 /HPF Invalid Interpretation Code 0-3/HPF [facility] UA Auto SS Mucus Ql (Urine sed) Trace (01/26/23 8:28 PM) Normal [facility] UA Auto SS Nitrite Ql (U) Negative (01/26/23 8:28 PM) Normal Negative [facility] UA Auto SS pH (U) 5.5 *NA* (01/26/23 8:28 PM) Invalid Interpretation Code 5.0 - 9.0 [facility] UA Auto SS Protein (U) [Mass/Vol] Trace *ABN* (01/26/23 8:28 PM) Invalid Interpretation Code Negative [facility] UA Auto SS Specific gravity (U) [Rel density] >=1.030 *NA* (01/26/23 8:28 PM) Invalid Interpretation Code 1.005 - 1.030 [facility] UA Auto SS UA Spec Desc Clean Catch (01/26/23 8:28 PM) Normal [facility] UA Auto SS Urobilinogen Qn (U) 0.5039538 {Diaz'U}/dL Normal 0.0 - 1.0 EU/dL [facility] UA Auto SS WBC Auto Ql (U) 1+ *ABN* (01/26/23 8:28 PM) Invalid Interpretation Code Negative [facility] UA Auto SS WBC LM.HPF (Urine sed) [#/Area] 6-15 /HPF Invalid Interpretation Code 0-5/HPF [facility] UA Auto SS eGFRon 01-26-2023 GFR/1.73 sq M.predicted among non-blacks MDRD (S/P/Bld) [Vol rate/Area] 111 mL/min/1.73 m2 Normal >=59 [facility] Comment on above: Order Comment: Order added by Discern Expert. Result Comment: [employer] aiyana kidney disease could be indicated at eGFR's of less than 60 mL/min/1.73m2. Kidney failure is indicated at less than 15 mL/min/1.73m2. Performed By: #### 2 691569, 3429586, 3304537, 7901060, 40229730, 4547236 ####[facility] [address] [place] [address] Glucose Glucometer (BldC) [M ass/Vol]Ordered By: Braulio Dukes on 01-20-2023 Glucose [Mass/Vol] 227 mg/dL [facility] Glucose Poct Glucometerson 0 01-20-2023 Glucose [Mass/Vol] 227 mg/dL Normal [facility] Comment on above: Result Comment: [place] Glucose Reference Range is dependent on time and content of last meal. Glucose of more than 200 mg/dL in a nonstressed, ambulatory subject supports the diagnosis of Diabetes Mellitus.PERFORMED BY:[address] [place], [place] [phone] MEDICAL DIRECTORNATALIA MIKE M.D. Performed By: #### G LULS ####Point of Care testing, Commemt1 Glu2: Cleaned Meter [facility] Comment on above: Result Comment: PERF ORMED BY:[place] [address] [address] [place], [place] [phone] MEDICAL RONAN MIKE M.D. Performed By: #### G LULS ####Point of Care testing, Glucose [Mass/Vol] 86 mg/dL Normal [facility] Comment on above: Result Comment: [place] Glucose Reference Range is dependent on time and content of last meal. Glucose of more than 200 mg/dL in a nonstressed, ambulatory subject supports the diagnosis of Diabetes Mellitus. Performed By: #### G LULS ####Point of Care testing, Commemt1 Glu2: Cleaned Meter [facility] Comment on above: Result Comment: PERF ORMED BY:[address] [place], [place] [phone] MEDICAL DIRECTORNATALIA MIKE M.D. Performed By: #### G LULS ####Point of Care testing, Glucose [Mass/Vol] 68 mg/dL Normal [facility] Comment on above: Result Comment: [place] om Glucose Reference Range is dependent on time and content of last meal. Glucose of more than 200 mg/dL in a nonstressed, ambulatory subject supports the diagnosis of Diabetes Mellitus. Performed By: #### G LULS ####Point of Care testing, Commemt1 Glu2: Cleaned Meter [facility] Comment on above: Result Comment: PERF ORMED BY:[place] [address] [place], [place] [phone] MEDICAL DIRECTORNATALIA MIKE M.D. Performed By: #### G LULS ####Point of Care testing, Glucose [Mass/Vol] 54 mg/dL Off scale [facility] Comment on above: Result Comment: [place] om Glucose Reference Range is dependent on time and content of last meal. Glucose of more than 200 mg/dL in a nonstressed, ambulatory subject supports the diagnosis of Diabetes Mellitus. Performed By: #### G LULS ####Point of Care testing, Commemt1 [facility] Comment on above: Result Comment: Glu2 : Result Not ConfirmedPERFORMED BY:[place] [address] [address] [place], [place] [phone] MEDICAL RONAN MIKE M.D. Performed By: #### G LULS ####Point of Care testing, Glucose [Mass/Vol] 56 mg/dL Off scale [facility] Comment on above: Result Comment: [place] om Glucose Reference Range is dependent on time and content of last meal. Glucose of more than 200 mg/dL in a nonstressed, ambulatory subject supports the diagnosis of Diabetes Mellitus. Performed By: #### G LULS ####Point of Care testing, Commemt1 Glu2: Cleaned Meter [facility] Comment on above: Result Comment: PERF ORMED BY:[place] [address] [address] [place], [place] [phone] MEDICAL RONAN MIKE M.D. Performed By: #### G LULS ####Point of Care testing, Glucose [Mass/Vol] 206 mg/dL Normal [facility] Comment on above: Result Comment: [place] om Glucose Reference Range is dependent on time and content of last meal. Glucose of more than 200 mg/dL in a nonstressed, ambulatory subject supports the diagnosis of Diabetes Mellitus. Performed By: #### G LULS ####Point of Care testing, Commemt1 Glu2: Cleaned Meter Normal [facility] Comment on above: Result Comment: PERF ORMED BY:[address] [place], [place] [phone] MEDICAL DIRECTORNATALIA MIKE M.D. Performed By: #### G LULS ####Point of Care testing, Glucose [Mass/Vol] 189 mg/dL Normal [facility] Comment on above: Result Comment: [place] Glucose Reference Range is dependent on time and content of last meal. Glucose of more than 200 mg/dL in a nonstressed, ambulatory subject supports the diagnosis of Diabetes Mellitus. Performed By: #### G LULS ####Point of Care testing, No Panel InformationOrdered By: Braulio Dukes on 01-20-2023 Glu2: cleaned meter [facility] Alanine aminotransferase [En zymatic activity/volume] in Serum or PlasmaOrdered By: Gely Chapman on 01-19-2023 ALT [Catalytic activity/Vol] 28 U/L 7-52 [facility] Albumin [Mass/volume] in Ser um or Plasma by Bromocresol green (BCG) dye binding methoOrdered By: Gely Chapman on 01-19-2023 Albumin BCG dye [Mass/Vol] 3.9 g/dL 3.5-5.7 [facility] Alkaline phosphatase [Enzyma tic activity/volume] in Serum or PlasmaOrdered By: Gely Chapman on 01-19-2023 ALP [Catalytic activity/Vol] 79 U/L 34-104 [facility] Aspartate aminotransferase [ Enzymatic activity/volume] in Serum or PlasmaOrdered By: Gely Chapman on 07-24-2023 AST [Catalytic activity/Vol] 21 U/L 13-39 [facility] Basophils Auto (Bld) [#/Vol] Ordered By: Gely Chapman on 01-19-2023 Basophils (Bld) [#/Vol] 0.1 10*3/uL 0.0-0.2 [facility] Basophils/100 WBC Auto (Bld) Ordered By: Gely Chapman on 01-19-2023 Basophils/100 WBC (Bld) 1.3 % . [facility] Bilirubin.total [Mass/volume ] in Serum or PlasmaOrdered By: Gely Chapman on 01-19-2023 Bilirubin [Mass/Vol] 0.4 mg/dL 0.3-1.0 [facility] Calcium [Mass/volume] in Ser um or PlasmaOrdered By: Gely Chapman on 01-19-2023 Calcium [Mass/Vol] 9.6 mg/dL 8.6-10.3 [facility] Carbon dioxide, total [Moles /volume] in Serum or PlasmaOrdered By: Gely Chapman on 01-19-2023 CO2 [Moles/Vol] 33.2 mmol/L 21.0-31.0 [facility] Chloride [Moles/volume] in S jaron or PlasmaOrdered By: Gely Chapman on 01-19-2023 Chloride [Moles/Vol] 102 mmol/L 98-107 [facility] Complete Blood Count Auto Di ffon 01-19-2023 Basophils (Bld) [#/Vol] 0.1 10*3/uL Normal 0.0-0.2 [facility] Comment on above: Result Comment: PERF ORMED BY:[address] [place], [place] [phone] MEDICAL DIRECTORNATALIA MIKE M.D. Performed By: #### C BC, LIPASE, CMP ####[facility] [id number] [place] [id number] [place] Basophils/100 WBC (Bld) 1.3 % Normal . [facility] Comment on above: Performed By: #### C BC, LIPASE, CMP ####[place] [id number] Eosinophils (Bld) [#/Vol] 0.7 10*3/uL High 0.0-0.45 [facility] Comment on above: Performed By: #### C BC, LIPASE, CMP ####[address] Eosinophils/100 WBC (Bld) 9.1 % Normal . [facility] Comment on above: Performed By: #### C BC, LIPASE, CMP ####[address] Erythrocyte distribution width (RBC) [Ratio] 13.0 % Normal 11.9-15.3 [facility] Comment on above: Performed By: #### C BC, LIPASE, CMP ####[address] Hematocrit (Bld) [Volume fraction] 38.3 % Normal 34.0-46.4 [facility] Comment on above: Performed By: #### C BC, LIPASE, CMP ####[address] Hemoglobin (Bld) [Mass/Vol] 13.1 g/dL Normal 11.8-15.4 [facility] Comment on above: Performed By: #### C BC, LIPASE, CMP ####[address] Lymphocytes (Bld) [#/Vol] 2.0 10*3/uL Normal 1.00-4.8 [facility] Comment on above: Performed By: #### C BC, LIPASE, CMP ####[address] Lymphocytes/100 WBC (Bld) 27.1 % Normal . [facility] Comment on above: Performed By: #### C BC, LIPASE, CMP ####[address] MCH (RBC) [Entitic mass] 29.7 pg Normal 24.7-34.3 [facility] Comment on above: Performed By: #### C BC, LIPASE, CMP ####[place] [id number] [place] MCV (RBC) [Entitic vol] 86.8 fL Normal 80-100 [facility] Comment on above: Performed By: #### C BC, LIPASE, CMP ####[place] [id number] [place] Mean Corpuscular HGB Conc 34.2 g/dL Normal 32.0-35.0 [facility] Comment on above: Performed By: #### C BC, LIPASE, CMP ####[place] [id number] [place] Monocytes (Bld) [#/Vol] 0.5 10*3/uL Normal 0.0-0.8 [facility] Comment on above: Performed By: #### C BC, LIPASE, CMP ####[place] [id number] [place] Monocytes/100 WBC (Bld) 6.7 % Normal . [facility] Comment on above: Performed By: #### C BC, LIPASE, CMP ####[place] [id number] [place] Neutrophils (Bld) [#/Vol] 4.2 10*3/uL Normal 1.8-7.7 [facility] Comment on above: Performed By: #### C BC, LIPASE, CMP ####[place] [id number] [place] Neutrophils/100 WBC (Bld) 55.8 % Normal . [facility] Comment on above: Performed By: #### C BC, LIPASE, CMP ####[place] [id number] [place] NRBC% 0.1 /100{WBC} Normal 0-0.5 [facility] Comment on above: Performed By: #### C BC, LIPASE, CMP ####[place] [id number] [place] Platelet mean volume (Bld) [Entitic vol] 6.6 fL Normal 6.3-10.7 [facility] Comment on above: Performed By: #### C BC, LIPASE, CMP ####[place] [id number] [place] Platelets (Bld) [#/Vol] 202 10*3/uL Normal 150-450 [facility] Comment on above: Performed By: #### C BC, LIPASE, CMP ####[address] RBC (Bld) [#/Vol] 4.41 10*6/uL Normal 3.60-5.00 [facility] Comment on above: Performed By: #### C BC, LIPASE, CMP ####[address] WBC (Bld) [#/Vol] 7.4 10*3/uL Normal 3.8-11.6 [facility] Comment on above: Performed By: #### C BC, LIPASE, CMP ####[address] Comprehensive Metabolic Pane ben 01-19-2023 Albumin [Mass/Vol] 3.9 g/dL Normal 3.5-5.7 [facility] Comment on above: Performed By: #### C BC, LIPASE, CMP ####[address] Albumin/Globulin [Mass ratio] 1.2 {ratio} Normal [facility] Comment on above: Performed By: #### C BC, LIPASE, CMP ####[address] ALP [Catalytic activity/Vol] 79 U/L Normal 34-104 [facility] Comment on above: Performed By: #### C BC, LIPASE, CMP ####[place] [id number] [place] ALT [Catalytic activity/Vol] 28 U/L Normal 7-52 [facility] Comment on above: Performed By: #### C BC, LIPASE, CMP ####[address] Anion gap [Moles/Vol] 8.5 mmol/L Normal 6.0-15.0 [facility] Comment on above: Performed By: #### C BC, LIPASE, CMP ####[address] AST [Catalytic activity/Vol] 21 U/L Normal 13-39 [facility] Comment on above: Performed By: #### C BC, LIPASE, CMP ####[address] Bilirubin [Mass/Vol] 0.4 mg/dL Normal 0.3-1.0 [facility] Comment on above: Performed By: #### C BC, LIPASE, CMP ####[address] Calcium [Mass/Vol] 9.6 mg/dL Normal 8.6-10.3 [facility] Comment on above: Performed By: #### C BC, LIPASE, CMP ####[address] Chloride [Moles/Vol] 102 mmol/L Normal 98-107 [facility] Comment on above: Performed By: #### C BC, LIPASE, CMP ####[address] CO2 [Moles/Vol] 33.2 mmol/L High 21.0-31.0 [facility] Comment on above: Performed By: #### C BC, LIPASE, CMP ####[address] Creatinine [Mass/Vol] 1.02 mg/dL Normal 0.60-1.20 [facility] Comment on above: Performed By: #### C BC, LIPASE, CMP ####[place] [id number] [place] Creatinine Clr Calc Pharmacy 92.[address] [facility] Comment on above: Performed By: #### C BC, LIPASE, CMP ####[address] GFR/1.73 sq M.predicted MDRD (S/P/Bld) [Vol rate/Area] mL/min/{1.73_m2} Normal [facility] Comment on above: Performed By: #### C BC, LIPASE, CMP ####[place] [id number] [place] Globulin (S) [Mass/Vol] 3.2 g/dL Normal [facility] Comment on above: Performed By: #### C BC, LIPASE, CMP ####[address] Glucose [Mass/Vol] 158 mg/dL High 70-100 [facility] Comment on above: Result Comment: [facility] Glucose Reference Range is dependent on time and content of last meal. Glucose of more than 200 mg/dL in a nonstressed, ambulatory subject supports the diagnosis of Diabetes Mellitus. ADA recommended reference range Performed By: #### C BC, LIPASE, CMP ####[place] [id number] [place] Potassium [Moles/Vol] 4.7 mmol/L Normal 3.5-5.1 [facility] Comment on above: Performed By: #### C BC, LIPASE, CMP ####[place] [id number] [place] Protein [Mass/Vol] 7.1 g/dL Normal 6.4-8.9 [facility] Comment on above: Performed By: #### C BC, LIPASE, CMP ####[place] [id number] [place] Sodium [Moles/Vol] 139 mmol/L Normal 136-145 [facility] Comment on above: Performed By: #### C BC, LIPASE, CMP ####[place] [id number] [place] Urea nitrogen [Mass/Vol] 18 mg/dL Normal 7-25 [facility] Comment on above: Performed By: #### C BC, LIPASE, CMP ####[place] [id number] [place] Creatinine [Mass/volume] in Serum or PlasmaOrdered By: Gely Chapman on 01-19-2023 Creatinine [Mass/Vol] 1.02 mg/dL 0.60-1.20 [facility] ECG 12 lead ECGon 01-19-2023 ECG [address] [facility] Eosinophils Auto (Bld) [#/Vo l]Ordered By: Gely Chapman on 01-19-2023 Eosinophils (Bld) [#/Vol] 0.7 10*3/uL 0.0-0.45 [facility] Eosinophils/100 WBC Auto (Bl d)Ordered By: Gely Chapman on 01-19-2023 Eosinophils/100 WBC (Bld) 9.1 % . [facility] Erythrocyte distribution wid th Auto (RBC) [Ratio]Ordered By: Gely Chapman on 01-19-2023 Erythrocyte distribution width (RBC) [Ratio] 13.0 % 11.9-15.3 [facility] Globulin Calc (S) [Mass/Vol] Ordered By: Gely Chapman on 01-19-2023 Globulin (S) [Mass/Vol] 3.2 g/dL [facility] Glucose Poct Glucometerson 0 01-19-2023 Commemt1 Glu2: Cleaned Meter [facility] Comment on above: Result Comment: PERF ORMED BY:[place] [address] [address] [place], [place] [phone] MEDICAL DIRECTORNATALIA MIKE M.D. Performed By: #### G LULS ####Point of Care testing, Glucose [Mass/Vol] 155 mg/dL Normal [facility] Comment on above: Result Comment: [facility] Glucose Reference Range is dependent on time and content of last meal. Glucose of more than 200 mg/dL in a nonstressed, ambulatory subject supports the diagnosis of Diabetes Mellitus. Performed By: #### G LULS ####Point of Care testing, Commemt1 Glu2: Cleaned Meter [facility] Comment on above: Result Comment: PERF ORMED BY:[place] [address] [address] [place], [place] [phone] MEDICAL DIRECTORNATALIA MIKE M.D. Performed By: #### G LULS ####Point of Care testing, Glucose [Mass/Vol] 161 mg/dL Normal [facility] Comment on above: Result Comment: [place] om Glucose Reference Range is dependent on time and content of last meal. Glucose of more than 200 mg/dL in a nonstressed, ambulatory subject supports the diagnosis of Diabetes Mellitus. Performed By: #### G LULS ####Point of Care testing, Glucose [Mass/Vol] 83 mg/dL Normal [facility] Comment on above: Result Comment: [place] om Glucose Reference Range is dependent on time and content of last meal. Glucose of more than 200 mg/dL in a nonstressed, ambulatory subject supports the diagnosis of Diabetes Mellitus.PERFORMED BY:[address] [place], [place] [phone] MEDICAL DIRECTORNATALIA MIKE M.D. Performed By: #### G LILLY ####Point of Care testing, Glucose [Mass/volume] in Ser um or PlasmaOrdered By: Gely Chapman on 01-19-2023 Glucose [Mass/Vol] 158 mg/dL 70-100 [facility] Hematocrit Auto (Bld) [Volum e fraction]Ordered By: Gely Chapman on 01-19-2023 Hematocrit (Bld) [Volume fraction] 38.3 % 34.0-46.4 [facility] Hemoglobin [Mass/volume] in BloodOrdered By: Gely Chapman on 01-19-2023 Hemoglobin (Bld) [Mass/Vol] 13.1 g/dL 11.8-15.4 [facility] Leukocytes [#/volume] correc suzanne for nucleated erythrocytes in Blood by Automated counOrdered By: Gely Chapman on 01-19-2023 WBC corrected for nucl RBC Auto (Bld) [#/Vol] 7.4 10*3/uL 3.8-11.6 [facility] Lipaseon 01-19-2023 Lipase [Catalytic activity/Vol] 17.0 U/L Normal 11.0-82.0 [facility] Comment on above: Result Comment: PERF ORMED BY:[address] [place], [place] [phone] MEDICAL DIRECTORNATALIA MIKE M.D. Performed By: #### C BC, LIPASE, CMP ####[facility] [id number] [place] [address] [place] Lipase [Enzymatic activity/v olume] in Serum or PlasmaOrdered By: Gely Chapman on 01-19-2023 Lipase [Catalytic activity/Vol] 17.0 U/L 11.0-82.0 [facility] Lymphocytes Auto (Bld) [#/Vo l]Ordered By: Gely Chapman on 01-19-2023 Lymphocytes (Bld) [#/Vol] 2.0 10*3/uL 1.00-4.8 [facility] Lymphocytes/100 WBC Auto (Bl d)Ordered By: Gely Chapman on 01-19-2023 Lymphocytes/100 WBC (Bld) 27.1 % . [facility] MCH Auto (RBC) [Entitic mass ]Ordered By: Gely Chapman on 01-19-2023 MCH (RBC) [Entitic mass] 29.7 pg 24.7-34.3 [facility] MCHC Auto (RBC) [Mass/Vol]Or dered By: Gely Chapman on 01-19-2023 MCHC (RBC) [Mass/Vol] 34.2 g/dL 32.0-35.0 [facility] MCV Auto (RBC) [Entitic vol] Ordered By: Gely Chapman on 01-19-2023 MCV (RBC) [Entitic vol] 86.8 fL 80-100 [facility] Monocytes Auto (Bld) [#/Vol] Ordered By: Gely Chapman on 01-19-2023 Monocytes (Bld) [#/Vol] 0.5 10*3/uL 0.0-0.8 [facility] Monocytes/100 WBC Auto (Bld) Ordered By: Gely Chapman on 01-19-2023 Monocytes/100 WBC (Bld) 6.7 % . [facility] Neutrophils Auto (Bld) [#/Vo l]Ordered By: Gely Chapman on 01-19-2023 Neutrophils (Bld) [#/Vol] 4.2 10*3/uL 1.8-7.7 [facility] Neutrophils/100 WBC Auto (Bl d)Ordered By: Gely Chapman on 01-19-2023 Neutrophils/100 WBC (Bld) 55.8 % . [facility] No Panel InformationOrdered By: Gely Chapman on 01-19-2023 > 60.0 mL/Min [facility] 92.12 [facility] Nucleated erythrocytes [Pres ence] in Blood by Automated countOrdered By: Gely Chapman on 01-19-2023 Nucleated RBC Auto Ql (Bld) 0.1 /100{WBC} 0-0.5 [facility] Platelet mean volume Auto (B ld) [Entitic vol]Ordered By: Gely Chapman on 01-19-2023 Platelet mean volume (Bld) [Entitic vol] 6.6 fL 6.3-10.7 [facility] Platelets Auto (Bld) [#/Vol] Ordered By: Gely Chapman on 01-19-2023 Platelets (Bld) [#/Vol] 202 10*3/uL 150-450 [facility] Potassium [Moles/volume] in Serum or PlasmaOrdered By: Gely Chapman on 01-19-2023 Potassium [Moles/Vol] 4.7 mmol/L 3.5-5.1 [facility] Protein [Mass/volume] in Ser um or PlasmaOrdered By: Gely Chapman on 01-19-2023 Protein [Mass/Vol] 7.1 g/dL 6.4-8.9 [facility] RBC Auto (Bld) [#/Vol]Ordere d By: Gely Chapman on 01-19-2023 RBC (Bld) [#/Vol] 4.41 10*6/uL 3.60-5.00 [facility] Serum or plasma albumin/glob ulin mass ratioOrdered By: Gely Chapman on 01-19-2023 Albumin/Globulin [Mass ratio] 1.2 {ratio} [facility] Serum or plasma anion gap de terminationOrdered By: Gely Chapman on 01-19-2023 Anion gap [Moles/Vol] 8.5 mmol/L 6.0-15.0 [facility] Sodium [Moles/volume] in Ser um or PlasmaOrdered By: Gely Chapman on 01-19-2023 Sodium [Moles/Vol] 139 mmol/L 136-145 [facility] Urea nitrogen [Mass/volume] in Serum or PlasmaOrdered By: Gely Chapman on 01-19-2023 Urea nitrogen [Mass/Vol] 18 mg/dL 7-25 [facility] WBC Auto (Bld) [#/Vol]Ordere d By: Gely Chapman on 01-19-2023 WBC (Bld) [#/Vol] 7.4 10*3/uL 3.8-11.6 [facility] Cholesterol [Mass/volume] in Serum or PlasmaOrdered By: Braulio Dukes on 01-18-2023 Cholesterol [Mass/Vol] 189 mg/dL 140-200 [facility] Cholesterol in LDL Calc [Mas s/Vol]Ordered By: Braulio Dukes on 01-18-2023 Cholesterol in LDL [Mass/Vol] 101 mg/dL 0-100 [facility] Cholesterol in VLDL Calc [Ma ss/Vol]Ordered By: Braulio Dukes on 01-18-2023 Cholesterol in VLDL [Mass/Vol] 39 mg/dL [facility] ECG 12 lead ECGon 01-18-2023 ECG [address] [facility] Free T4 (Free Thyroxine)on 0 01-18-2023 Free T4 [Mass/Vol] 0.66 ng/dL Normal 0.61-1.12 [facility] Comment on above: Performed By: #### L IPID, [id number], T4F, TSH3 wRFLX ####[facility] [id number] [place] [id number] [place] Lipid Panelon 01-18-2023 Cholesterol [Mass/Vol] 189 mg/dL Normal 140-200 [facility] Comment on above: Result Comment: Chol less than 200 mg/dl low risk Chol 201-239 mg/dl borderline risk Chol 240 mg/dl and greater high risk Performed By: #### L IPID, [id number], T4F, TSH3 wRFLX ####[id number] [place] [address] [place] Cholesterol in HDL [Mass/Vol] 49 mg/dL Normal 23-92 [facility] Comment on above: Result Comment: HDL CHOL ATP-III CLASSIFICATION Cardiovascular Risk HDL > or equal to 60 mg/dL LOW HDL < 40 mg/dL HIGH Performed By: #### L IPID, [id number], T4F, TSH3 wRFLX ####[address] [address] [place] Cholesterol.total/Chol esterol in HDL [Mass ratio] 3.9 {ratio} Normal <5.0 [facility] Comment on above: Performed By: #### L IPID, [id number], T4F, TSH3 wRFLX ####[place] [id number] [place] LDL Cholesterol,Calculated 101 mg/dL High 0-100 [facility] Comment on above: Result Comment: LDL ATP III CLASSIFICATION LDL less than 100 mg/dL Optimal LDL 100-129 mg/dL Near or above optimal LDL 130-159 mg/dL Borderline high LDL 160-189 mg/dL High LDL greater than 189 mg/dL Very high Performed By: #### L IPID, [id number], T4F, TSH3 wRFLX ####[address] [address] [place] Triglyceride w/Reflex 195 mg/dL High 0-149 [facility] Comment on above: Result Comment: TRIG ATP III CLASSIFICATION TRIG less than 150 mg/dL Normal TRIG 150-199 mg/dL Borderline high TRIG 200-500 mg/dL High TRIG greater than 500 mg/dL Very high Standard traceable to the Center for Disease Conrtrol and Prevention (CDC) test method. Performed By: #### L IPID, [id number], T4F, TSH3 wRFLX ####[address] [address] [place] VLDL CHOLESTEROL 39 mg/dL Normal [facility] Comment on above: Performed By: #### L IPID, [id number], T4F, TSH3 wRFLX ####[place] [address] [place] [id number] [place] Serum or plasma high density lipoprotein (HDL) cholesterol measurementOrdered By: Braulio Dukes on 01-18-2023 Cholesterol in HDL [Mass/Vol] 49 mg/dL [facility] Serum or plasma total choles terol/high density lipoprotein (HDL) cholesterol mass ratOrdered By: Braulio Dukes on 01-18-2023 Cholesterol.total/Chol esterol in HDL [Mass ratio] 3.9 {ratio} <5.0 [facility] Thyroid Stim Hormone w/Rflxo n 01-18-2023 Thyroid Stim Hormone w/Rflx 16.29 u[iU]/mL High 0.45-5.33 [facility] Comment on above: Performed By: #### L IPID, [id number], T4F, TSH3 wRFLX ####[facility] [id number] [place] [id number] [place] Thyrotropin [Units/volume] i n Serum or PlasmaOrdered By: Braulio Dukes on 01-18-2023 TSH Qn 16.29 m[IU]/L 0.45-5.33 [facility] Thyroxine (T4) free [Mass/vo lume] in Serum or PlasmaOrdered By: Braulio Dukes on 01-18-2023 Free T4 [Mass/Vol] 0.66 ng/dL 0.61-1.12 [facility] Triglyceride [Mass/volume] i n Serum or PlasmaOrdered By: Braulio Dukes on 01-18-2023 Triglyceride [Mass/Vol] 195 mg/dL 0-149 [facility] Vitamin D 25 Hydroxy Totalon 01-18-2023 Vitamin D 25 Hydroxy Total 36.5 ng/mL Normal 30-100 [facility] Comment on above: Result Comment: ELIAS MIN D STATUS 25(OH)VITAMIN D RANGE (ng/mL) Deficient <20 Insufficient 20 to <30 Sufficient 30 to 100 Reference: Nathalia MF,Emi NC, Christopher NAVAS, et al. Evaluation,treatment, and prevention of vitamin D deficiency; an Endocrine Society clinical practice guideline. JCEM. 2010; 96(7):1911-30.PERFORMED BY:[address] [address] [address] [place], [place] [phone] MEDICAL DIRECTORNATALIA MIKE M.D. Performed By: #### L IPID, [id number], T4F, TSH3 wRFLX ####[facility] [id number] [place] [address] [place] Vitamin D+Metabolites [Mass/ volume] in Serum or PlasmaOrdered By: Braulio Dukes on 01-18-2023 Vitamin D+Metabolites [Mass/Vol] 36.5 ng/mL 30-100 [facility] Glucose Glucometer (BldC) [M ass/Vol]Ordered By: Braulio Dukes on 01-03-2023 Glucose [Mass/Vol] 283 mg/dL [facility] Glucose Poct Glucometerson 0 01-03-2023 Commemt1 Glu2: Cleaned Meter [facility] Comment on above: Result Comment: PERF ORMED BY:[address] [address] [address] [place], [place] [phone] MEDICAL DIRECTORNATALIA MIKE M.D. Performed By: #### G LULS ####Point of Care testing, Glucose [Mass/Vol] 283 mg/dL Normal [facility] Comment on above: Result Comment: [facility] Glucose Reference Range is dependent on time and content of last meal. Glucose of more than 200 mg/dL in a nonstressed, ambulatory subject supports the diagnosis of Diabetes Mellitus. Performed By: #### G LULS ####Point of Care testing, Commemt1 Glu2: Cleaned Meter [facility] Comment on above: Result Comment: PERF ORMED BY:[address] [address] [address] [place], [place] [phone] MEDICAL RONAN MIKE M.D. Performed By: #### G LULS ####Point of Care testing, Glucose [Mass/Vol] 255 mg/dL Normal [facility] Comment on above: Result Comment: [facility] Glucose Reference Range is dependent on time and content of last meal. Glucose of more than 200 mg/dL in a nonstressed, ambulatory subject supports the diagnosis of Diabetes Mellitus. Performed By: #### G LULS ####Point of Care testing, No Panel InformationOrdered By: Braulio Dukes on 01-03-2023 Glu2: cleaned meter [facility] Glucose Poct Glucometerson 0 01-02-2023 Glucose [Mass/Vol] 230 mg/dL Normal [facility] Comment on above: Result Comment: [facility] Glucose Reference Range is dependent on time and content of last meal. Glucose of more than 200 mg/dL in a nonstressed, ambulatory subject supports the diagnosis of Diabetes Mellitus.PERFORMED BY:[address] [place], [place] [phone] MEDICAL DIRECTORNATALIA MIKE M.D. Performed By: #### G LULS ####Point of Care testing, Glucose [Mass/Vol] 189 mg/dL Normal [facility] Comment on above: Result Comment: [facility] Glucose Reference Range is dependent on time and content of last meal. Glucose of more than 200 mg/dL in a nonstressed, ambulatory subject supports the diagnosis of Diabetes Mellitus.PERFORMED BY:[address] [place], [place] [phone] MEDICAL RONAN MIKE M.D. Performed By: #### G LULS ####Point of Care testing, Glucose [Mass/Vol] 88 mg/dL Normal [facility] Comment on above: Result Comment: [facility] Glucose Reference Range is dependent on time and content of last meal. Glucose of more than 200 mg/dL in a nonstressed, ambulatory subject supports the diagnosis of Diabetes Mellitus.PERFORMED BY:[address] [place], [place] [phone] BRANDEN MIKE M.D. Performed By: #### G LULS ####Point of Care testing, Glucose [Mass/Vol] 165 mg/dL Normal [facility] Comment on above: Result Comment: [place] [facility] Glucose Reference Range is dependent on time and content of last meal. Glucose of more than 200 mg/dL in a nonstressed, ambulatory subject supports the diagnosis of Diabetes Mellitus.PERFORMED BY:[address] [address] [address] [place], [place] [phone] MEDICAL DIRECTORNATALIA MIKE M.D. Performed By: #### G LILLY ####Point of Care testing, Glucose [Mass/Vol] 231 mg/dL Normal [facility] Comment on above: Result Comment: [place] Glucose Reference Range is dependent on time and content of last meal. Glucose of more than 200 mg/dL in a nonstressed, ambulatory subject supports the diagnosis of Diabetes Mellitus.PERFORMED BY:[place] [address] [address] BIPINLeviSorinVANESSAD[place], [place] [phone] MEDICAL DIRECTORNATALIA MIKE M.D. Performed By: #### G LILLY ####Point of Care testing, A1C with Estimated Average G luon 01-01-2023 Glucose [Mass/Vol] 226 mg/dL Normal [facility] Comment on above: Result Comment: PERF ORMED BY:[place] [address] [address] BIPINLeviSorinVANESSAD[place], [place] [phone] MEDICAL DIRECTORNATALIA MIKE M.D. Performed By: #### A 1C [facility] eA ####[address] [address] [place] HbA1c (Bld) [Mass fraction] 9.5 % High 4.3-5.6 [facility] Comment on above: Result Comment: Incr eased risk for diabetes: 5.7 - 6.4 diabetes: >6.4 glycemic control for adults with diabetes: <7.0 Performed By: #### A 1C WT eA ####[address] [address] [place] Glucose Poct Glucometerson 0 01-01-2023 Glucose [Mass/Vol] 119 mg/dL Normal [facility] Comment on above: Result Comment: [place] Glucose Reference Range is dependent on time and content of last meal. Glucose of more than 200 mg/dL in a nonstressed, ambulatory subject supports the diagnosis of Diabetes Mellitus.PERFORMED BY:[place] [address] [address] [place], [place] [phone] MEDICAL DIRECTORNATALIA MIKE M.D. Performed By: #### G LULS ####Point of Care testing, Glucose [Mass/Vol] 107 mg/dL Normal [facility] Comment on above: Result Comment: [facility] Glucose Reference Range is dependent on time and content of last meal. Glucose of more than 200 mg/dL in a nonstressed, ambulatory subject supports the diagnosis of Diabetes Mellitus.PERFORMED BY:[address] [address] [address] AVLeviSorinVANESSAD[place], [place] [phone] MEDICAL DIRECTORNATALIA MIKE M.D. Performed By: #### G LULS ####Point of Care testing, Glucose [Mass/Vol] 227 mg/dL Normal [facility] Comment on above: Result Comment: [facility] Glucose Reference Range is dependent on time and content of last meal. Glucose of more than 200 mg/dL in a nonstressed, ambulatory subject supports the diagnosis of Diabetes Mellitus.PERFORMED BY:[address] [address] [address] [place], [place] [phone] MEDICAL DIRECTORNATALIA MIKE M.D. Performed By: #### G LULS ####Point of Care testing, Glucose mean value [Mass/vol ume] in Blood Estimated from glycated hemoglobinOrdered By: Braulio Dukes on 01-01-2023 Average glucose Estimated from glycated hemoglobin (Bld) [Mass/Vol] 226 mg/dL [facility] Hemoglobin A1c percentageOrd ered By: Braulio Dukes on 01-01-2023 HbA1c (Bld) [Mass fraction] 9.5 % 4.3-5.6 [facility] Cholesterol [Mass/volume] in Serum or PlasmaOrdered By: Braulio Dukes on 12-31-2022 Cholesterol [Mass/Vol] 194 mg/dL 140-200 [facility] Cholesterol in LDL Calc [Mas s/Vol]Ordered By: Braulio Dukes on 12-31-2022 Cholesterol in LDL [Mass/Vol] 119 mg/dL 0-100 [facility] Cholesterol in VLDL Calc [Ma ss/Vol]Ordered By: Braulio Dukes on 12-31-2022 Cholesterol in VLDL [Mass/Vol] 26 mg/dL [facility] Free T4 (Free Thyroxine)on 0 12-31-2022 Free T4 [Mass/Vol] 0.74 ng/dL Normal 0.61-1.12 [facility] Comment on above: Performed By: #### T SH3 wRFLX, T4F ####[facility] [id number] [place] [address] [place] Glucose Poct Glucometerson 0 12-31-2022 Commemt1 Glu2: Cleaned Meter [facility] Comment on above: Result Comment: PERF ORMED BY:[address] [address] [address] [place], [place] [phone] MEDICAL DIRECTORNATALIA MIKE M.D. Performed By: #### G LULS ####Point of Care testing, Glucose [Mass/Vol] 150 mg/dL Normal [facility] Comment on above: Result Comment: [place] Glucose Reference Range is dependent on time and content of last meal. Glucose of more than 200 mg/dL in a nonstressed, ambulatory subject supports the diagnosis of Diabetes Mellitus. Performed By: #### G LULS ####Point of Care testing, Glucose [Mass/Vol] 162 mg/dL Normal [facility] Comment on above: Result Comment: [place] Glucose Reference Range is dependent on time and content of last meal. Glucose of more than 200 mg/dL in a nonstressed, ambulatory subject supports the diagnosis of Diabetes Mellitus.PERFORMED BY:[address] [place], [place] [phone] MEDICAL DIRECTORNATALIA MIKE M.D. Performed By: #### G LULS ####Point of Care testing, Commemt1 Glu2: Cleaned Meter [facility] Comment on above: Result Comment: PERF ORMED BY:[address] [place] [address] [address] [place], [place] [phone] MEDICAL DIRECTORNATALIA MIKE M.D. Performed By: #### G LULS ####Point of Care testing, Glucose [Mass/Vol] 73 mg/dL [facility] Comment on above: Result Comment: [place] Glucose Reference Range is dependent on time and content of last meal. Glucose of more than 200 mg/dL in a nonstressed, ambulatory subject supports the diagnosis of Diabetes Mellitus. Performed By: #### G LULS ####Point of Care testing, Commemt1 [facility] Comment on above: Result Comment: Glu2 : WILL NOTIFY DR/STEPHENERFORMED BY:[place] [address] [address] [place]AS[place], [place] [phone] MEDICAL DIRECTORNATALIA MIKE M.D. Performed By: #### G LULS ####Point of Care testing, Glucose [Mass/Vol] 52 mg/dL Off scale low [facility] Comment on above: Result Comment: [place] Glucose Reference Range is dependent on time and content of last meal. Glucose of more than 200 mg/dL in a nonstressed, ambulatory subject supports the diagnosis of Diabetes Mellitus. Performed By: #### G LULS ####Point of Care testing, Glucose [Mass/Vol] 134 mg/dL Normal [facility] Comment on above: Result Comment: [place] Glucose Reference Range is dependent on time and content of last meal. Glucose of more than 200 mg/dL in a nonstressed, ambulatory subject supports the diagnosis of Diabetes Mellitus.PERFORMED BY:[address] [address] [place] [place], [place] [phone] MEDICAL RONAN MIKE M.D. Performed By: #### G LULS ####Point of Care testing, Glucose [Mass/Vol] 184 mg/dL [facility] Comment on above: Result Comment: [place] Glucose Reference Range is dependent on time and content of last meal. Glucose of more than 200 mg/dL in a nonstressed, ambulatory subject supports the diagnosis of Diabetes Mellitus.PERFORMED BY:[place] [address] [place], [place] [phone] MEDICAL DIRECTORNATALIA MIKE M.D. Performed By: #### G LULS ####Point of Care testing, Glucose [Mass/Vol] 146 mg/dL Normal [facility] Comment on above: Result Comment: [facility] Glucose Reference Range is dependent on time and content of last meal. Glucose of more than 200 mg/dL in a nonstressed, ambulatory subject supports the diagnosis of Diabetes Mellitus.PERFORMED BY:[address] [place], [place] [phone] MEDICAL DIRECTORNATALIA MIKE M.D. Performed By: #### G LULS ####Point of Care testing, Lipid Panelon 12-31-2022 Cholesterol [Mass/Vol] 194 mg/dL Normal 140-200 [facility] Comment on above: Result Comment: Chol less than 200 mg/dl low risk Chol 201-239 mg/dl borderline risk Chol 240 mg/dl and greater high risk Performed By: #### V [id number], LIPID ####[address] [place] [address] [place] Cholesterol in HDL [Mass/Vol] 49 mg/dL Normal 23-92 [facility] Comment on above: Result Comment: HDL CHOL ATP-III CLASSIFICATION Cardiovascular Risk HDL > or equal to 60 mg/dL LOW HDL < 40 mg/dL HIGH Performed By: #### V [id number], LIPID ####[address] [place] [address] [place] Cholesterol.total/Chol esterol in HDL [Mass ratio] 4.0 {ratio} Normal <5.0 [facility] Comment on above: Performed By: #### V [id number], LIPID ####[address] [address] [place] LDL Cholesterol,Calculated 119 mg/dL High 0-100 [facility] Comment on above: Result Comment: LDL ATP III CLASSIFICATION LDL less than 100 mg/dL Optimal LDL 100-129 mg/dL Near or above optimal LDL 130-159 mg/dL Borderline high LDL 160-189 mg/dL High LDL greater than 189 mg/dL Very high Performed By: #### V [id number], LIPID ####[place] [address] [place] [id number] [place] Triglyceride w/Reflex 132 mg/dL Normal 0-149 [facility] Comment on above: Result Comment: TRIG ATP III CLASSIFICATION TRIG less than 150 mg/dL Normal TRIG 150-199 mg/dL Borderline high TRIG 200-500 mg/dL High TRIG greater than 500 mg/dL Very high Standard traceable to the Center for Disease Conrtrol and Prevention (CDC) test method. Performed By: #### V [id number], LIPID ####[place] [address] VLDL CHOLESTEROL 26 mg/dL Normal [facility] Comment on above: Performed By: #### V [id number], LIPID ####[place] [address] Serum or plasma high density lipoprotein (HDL) cholesterol measurementOrdered By: Braulio Dukes on 12-31-2022 Cholesterol in HDL [Mass/Vol] 49 mg/dL 23-92 [facility] Serum or plasma total choles terol/high density lipoprotein (HDL) cholesterol mass ratOrdered By: Braulio Dukes on 12-31-2022 Cholesterol.total/Chol esterol in HDL [Mass ratio] 4.0 {ratio} <5.0 [facility] Thyroid Stim Hormone w/Rflxo n 12-31-2022 Thyroid Stim Hormone w/Rflx 15.61 u[iU]/mL High 0.45-5.33 [facility] Comment on above: Result Comment: PERF ORMED BY:[address] [place], [place] [phone] MEDICAL DIRECTORNATALIA MIKE M.D. Performed By: #### T SH3 wRFLX, T4F ####[place] [address] Thyrotropin [Units/volume] i n Serum or PlasmaOrdered By: Braulio Dukes on 12-31-2022 TSH Qn 15.61 m[IU]/L 0.45-5.33 [facility] Thyroxine (T4) free [Mass/vo lume] in Serum or PlasmaOrdered By: Braulio Dukes on 12-31-2022 Free T4 [Mass/Vol] 0.74 ng/dL 0.61-1.12 [facility] Triglyceride [Mass/volume] i n Serum or PlasmaOrdered By: Braulio Dukes on 12-31-2022 Triglyceride [Mass/Vol] 132 mg/dL 0-149 [facility] Vitamin D 25 Hydroxy Totalon 12-31-2022 Vitamin D 25 Hydroxy Total 37.4 ng/mL Normal 30-100 [facility] Comment on above: Result Comment: [place] MIN D STATUS 25(OH)VITAMIN D RANGE (ng/mL) Deficient <20 Insufficient 20 to <30 Sufficient 30 to 100 Reference: Nathalia MF,Emi DUFFY, Christopher NAVAS, et al. Evaluation,treatment, and prevention of vitamin D deficiency; an Endocrine Society clinical practice guideline. JCEM. 2010; 96(7):1911-30.PERFORMED BY:[address] [place], [place] [phone] MEDICAL DIRECTORNATALIA MIKE M.D. Performed By: #### V [id number], LIPID ####[facility] [place] [address] [place] Vitamin D+Metabolites [Mass/ volume] in Serum or PlasmaOrdered By: Braulio Dukes on 12-31-2022 Vitamin D+Metabolites [Mass/Vol] 37.4 ng/mL 30-100 [facility] Glucose Glucometer (BldC) [M ass/Vol]Ordered By: Maxim Pinto on 12-17-2022 Glucose [Mass/Vol] 327 mg/dL [facility] Glucose Poct Glucometerson 0 12-17-2022 Glucose [Mass/Vol] 327 mg/dL Normal [facility] Comment on above: Result Comment: [place] om Glucose Reference Range is dependent on time and content of last meal. Glucose of more than 200 mg/dL in a nonstressed, ambulatory subject supports the diagnosis of Diabetes Mellitus.PERFORMED BY:[address] [address] [address] MED[place]NA[place], [place] [phone] MEDICAL RONAN MIKE M.D. Performed By: #### G LULS ####Point of Care testing, Glucose [Mass/Vol] 274 mg/dL Normal [facility] Comment on above: Result Comment: [facility] Glucose Reference Range is dependent on time and content of last meal. Glucose of more than 200 mg/dL in a nonstressed, ambulatory subject supports the diagnosis of Diabetes Mellitus.PERFORMED BY:[place] [address] [address] [place], [place] [phone] MEDICAL RONAN MIKE M.D. Performed By: #### G LULS ####Point of Care testing, Glucose Poct Glucometerson 0 12-16-2022 Commemt1 Glu2: Cleaned Meter Normal [facility] Comment on above: Result Comment: PERF ORMED BY:[address] [address] [place], [place] [phone] MEDICAL RONAN MIKE M.D. Performed By: #### G LULS ####Point of Care testing, Glucose [Mass/Vol] 274 mg/dL Normal [facility] Comment on above: Result Comment: [facility] Glucose Reference Range is dependent on time and content of last meal. Glucose of more than 200 mg/dL in a nonstressed, ambulatory subject supports the diagnosis of Diabetes Mellitus. Performed By: #### G LULS ####Point of Care testing, Glucose [Mass/Vol] 219 mg/dL Normal [facility] Comment on above: Result Comment: [place] Glucose Reference Range is dependent on time and content of last meal. Glucose of more than 200 mg/dL in a nonstressed, ambulatory subject supports the diagnosis of Diabetes Mellitus.PERFORMED BY:[address] [address] [address] [place], [place] [phone] MEDICAL RONAN MIKE M.D. Performed By: #### G LULS ####Point of Care testing, Glucose [Mass/Vol] 253 mg/dL Normal [facility] Comment on above: Result Comment: [facility] Glucose Reference Range is dependent on time and content of last meal. Glucose of more than 200 mg/dL in a nonstressed, ambulatory subject supports the diagnosis of Diabetes Mellitus.PERFORMED BY:[address] [address] [address] [place], [place] [phone] MEDICAL RONAN MIKE M.D. Performed By: #### G LULS ####Point of Care testing, Glucose [Mass/Vol] 247 mg/dL Normal [facility] Comment on above: Result Comment: [facility] Glucose Reference Range is dependent on time and content of last meal. Glucose of more than 200 mg/dL in a nonstressed, ambulatory subject supports the diagnosis of Diabetes Mellitus.PERFORMED BY:[address] [place], [place] [phone] MEDICAL RONAN MIKE M.D. Performed By: #### G LULS ####Point of Care testing, No Panel InformationOrdered By: Maxim Pinto on 12-16-2022 Glu2: cleaned meter [facility] Glucose Poct Glucometerson 0 12-15-2022 Commemt1 Glu2: Cleaned Meter [facility] Comment on above: Result Comment: PERF ORMED BY:[address] [place], [place] [phone] BRANDEN MIKE M.D. Performed By: #### G LULS ####Point of Care testing, Glucose [Mass/Vol] 98 mg/dL Normal [facility] Comment on above: Result Comment: [facility] Glucose Reference Range is dependent on time and content of last meal. Glucose of more than 200 mg/dL in a nonstressed, ambulatory subject supports the diagnosis of Diabetes Mellitus. Performed By: #### G LULS ####Point of Care testing, Glucose [Mass/Vol] 174 mg/dL Normal [facility] Comment on above: Result Comment: [facility] Glucose Reference Range is dependent on time and content of last meal. Glucose of more than 200 mg/dL in a nonstressed, ambulatory subject supports the diagnosis of Diabetes Mellitus.PERFORMED BY:[place] [address] [address] BIPINLeviSorinVANESSAD[place], [place] [phone] MEDICAL RONAN MIKE M.D. Performed By: #### G LULS ####Point of Care testing, Glucose [Mass/Vol] 309 mg/dL Normal [facility] Comment on above: Result Comment: [facility] Glucose Reference Range is dependent on time and content of last meal. Glucose of more than 200 mg/dL in a nonstressed, ambulatory subject supports the diagnosis of Diabetes Mellitus.PERFORMED BY:[address] [address] [place], [place] [phone] MEDICAL RONAN MIKE M.D. Performed By: #### G LUTRAY ####Point of Care testing, Glucose [Mass/Vol] 248 mg/dL Normal [facility] Comment on above: Result Comment: [facility] Glucose Reference Range is dependent on time and content of last meal. Glucose of more than 200 mg/dL in a nonstressed, ambulatory subject supports the diagnosis of Diabetes Mellitus.PERFORMED BY:[address] [address] [place], [place] [phone] MEDICAL RONAN MIKE M.D. Performed By: #### G LULS ####Point of Care testing, A1C with Estimated Average [facility] 12-14-2022 Glucose [Mass/Vol] 223 mg/dL Normal [facility] Comment on above: Result Comment: PERF ORMED BY:[address] [address] [address] [place], [place] [phone] MEDICAL RONAN MIKE M.D. Performed By: #### A 1C [facility] ####[address] [address] [place] HbA1c (Bld) [Mass fraction] 9.4 % High 4.3-5.6 [facility] Comment on above: Result Comment: Incr eased risk for diabetes: 5.7 - 6.4 diabetes: >6.4 glycemic control for adults with diabetes: <7.0 Performed By: #### A 1C [facility] ####[facility] [id number] [place] [address] [place] Cholesterol [Mass/volume] in Serum or PlasmaOrdered By: Maxim Pinto on 12-14-2022 Cholesterol [Mass/Vol] 224 mg/dL 140-200 [facility] Cholesterol in LDL Calc [Mas s/Vol]Ordered By: Maxim Pinto on 12-14-2022 Cholesterol in LDL [Mass/Vol] 134 mg/dL 0-100 [facility] Cholesterol in VLDL Calc [Ma ss/Vol]Ordered By: Maxim Pinto on 12-14-2022 Cholesterol in VLDL [Mass/Vol] 41 mg/dL [facility] ECG 12 lead ECGon 12-14-2022 ECG [address] [facility] Free T4 (Free Thyroxine)on 0 12-14-2022 Free T4 [Mass/Vol] 0.57 ng/dL Low 0.61-1.12 [facility] Comment on above: Performed By: #### V [id number], LIPID, T4F, TSH3 wRFLX ####[facility] [id number] [place] [address] [place] Glucose Poct Glucometerson 0 12-14-2022 Commemt1 Glu2: Cleaned Meter [facility] Comment on above: Result Comment: PERF ORMED BY:[address] [place], [place] [phone] MEDICAL DIRECTORNATALIA MIKE M.D. Performed By: #### G LULS ####Point of Care testing, Glucose [Mass/Vol] 196 mg/dL Normal [facility] Comment on above: Result Comment: [place] Glucose Reference Range is dependent on time and content of last meal. Glucose of more than 200 mg/dL in a nonstressed, ambulatory subject supports the diagnosis of Diabetes Mellitus. Performed By: #### G LULS ####Point of Care testing, Commemt1 Glu2: Cleaned Meter [facility] Comment on above: Result Comment: PERF ORMED BY:[address] [place] [address] [address] [place], [place] [phone] MEDICAL DIRECTORNATALIA MIKE M.D. Performed By: #### G LULS ####Point of Care testing, Glucose [Mass/Vol] 318 mg/dL Normal [facility] Comment on above: Result Comment: [place] om Glucose Reference Range is dependent on time and content of last meal. Glucose of more than 200 mg/dL in a nonstressed, ambulatory subject supports the diagnosis of Diabetes Mellitus. Performed By: #### G LULS ####Point of Care testing, Commemt1 Glu2: Cleaned Meter [facility] Comment on above: Result Comment: PERF ORMED BY:[address] [place], [place] [phone] MEDICAL DIRECTORNATALIA MIKE M.D. Performed By: #### G LULS ####Point of Care testing, Glucose [Mass/Vol] 373 mg/dL Normal [facility] Comment on above: Result Comment: [place] om Glucose Reference Range is dependent on time and content of last meal. Glucose of more than 200 mg/dL in a nonstressed, ambulatory subject supports the diagnosis of Diabetes Mellitus. Performed By: #### G LULS ####Point of Care testing, Commemt1 Glu2: Cleaned Meter [facility] Comment on above: Result Comment: PERF ORMED BY:[address] [place], [place] [phone] MEDICAL RONAN MIKE M.D. Performed By: #### G LULS ####Point of Care testing, Glucose [Mass/Vol] 265 mg/dL Normal [facility] Comment on above: Result Comment: [place] om Glucose Reference Range is dependent on time and content of last meal. Glucose of more than 200 mg/dL in a nonstressed, ambulatory subject supports the diagnosis of Diabetes Mellitus. Performed By: #### G LULS ####Point of Care testing, Glucose mean value [Mass/vol ume] in Blood Estimated from glycated hemoglobinOrdered By: Maxim Pinto on 12-14-2022 Average glucose Estimated from glycated hemoglobin (Bld) [Mass/Vol] 223 mg/dL [facility] Hemoglobin A1c percentageOrd ered By: Maxim Pinto on 12-14-2022 HbA1c (Bld) [Mass fraction] 9.4 % 4.3-5.6 [facility] Lipid Panelon 12-14-2022 Cholesterol [Mass/Vol] 224 mg/dL High 140-200 [facility] Comment on above: Result Comment: Chol less than 200 mg/dl low risk Chol 201-239 mg/dl borderline risk Chol 240 mg/dl and greater high risk Performed By: #### V [id number], LIPID, T4F, TSH3 wRFLX ####[place] [id number] [place] Cholesterol in HDL [Mass/Vol] 48 mg/dL Normal 23-92 [facility] Comment on above: Result Comment: HDL CHOL ATP-III CLASSIFICATION Cardiovascular Risk HDL > or equal to 60 mg/dL LOW HDL < 40 mg/dL HIGH Performed By: #### V [id number], LIPID, T4F, TSH3 wRFLX ####[address] Cholesterol.total/Chol esterol in HDL [Mass ratio] 4.7 {ratio} Normal <5.0 [facility] Comment on above: Performed By: #### V [id number], LIPID, T4F, TSH3 wRFLX ####[place] [id number] [place] LDL Cholesterol,Calculated 134 mg/dL High 0-100 [facility] Comment on above: Result Comment: LDL ATP III CLASSIFICATION LDL less than 100 mg/dL Optimal LDL 100-129 mg/dL Near or above optimal LDL 130-159 mg/dL Borderline high LDL 160-189 mg/dL High LDL greater than 189 mg/dL Very high Performed By: #### V [id number], LIPID, T4F, TSH3 wRFLX ####[place] [id number] [place] Triglyceride w/Reflex 209 mg/dL High 0-149 [facility] Comment on above: Result Comment: TRIG ATP III CLASSIFICATION TRIG less than 150 mg/dL Normal TRIG 150-199 mg/dL Borderline high TRIG 200-500 mg/dL High TRIG greater than 500 mg/dL Very high Standard traceable to the Center for Disease Conrtrol and Prevention (CDC) test method. Performed By: #### V [id number], LIPID, T4F, TSH3 wRFLX ####[facility] [id number] VLDL CHOLESTEROL 41 mg/dL Normal [facility] Comment on above: Performed By: #### V [id number], LIPID, T4F, TSH3 wRFLX ####[facility] [id number] Serum or plasma high density lipoprotein (HDL) cholesterol measurementOrdered By: Maxim Pinto on 12-14-2022 Cholesterol in HDL [Mass/Vol] 48 mg/dL 23-92 [facility] Serum or plasma total choles terol/high density lipoprotein (HDL) cholesterol mass ratOrdered By: Maxim Pinto on 12-14-2022 Cholesterol.total/Chol esterol in HDL [Mass ratio] 4.7 {ratio} <5.0 [facility] Thyroid Stim Hormone w/Rflxo n 12-14-2022 Thyroid Stim Hormone w/Rflx 9.79 u[iU]/mL High 0.45-5.33 [facility] Comment on above: Performed By: #### V [id number], LIPID, T4F, TSH3 wRFLX ####[facility] [id number] Thyrotropin [Units/volume] i n Serum or PlasmaOrdered By: Maxim Pinto on 12-14-2022 TSH Qn 9.79 m[IU]/L 0.45-5.33 [facility] Thyroxine (T4) free [Mass/vo lume] in Serum or PlasmaOrdered By: Maxim Pinto on 12-14-2022 Free T4 [Mass/Vol] 0.57 ng/dL 0.61-1.12 [facility] Triglyceride [Mass/volume] i n Serum or PlasmaOrdered By: Maxim Pinto on 12-14-2022 Triglyceride [Mass/Vol] 209 mg/dL 0-149 [facility] Vitamin D 25 Hydroxy Totalon 12-14-2022 Vitamin D 25 Hydroxy Total 28.0 ng/mL Low 30-100 [facility] Comment on above: Result Comment: ELIAS MIN D STATUS 25(OH)VITAMIN D RANGE (ng/mL) Deficient <20 Insufficient 20 to <30 Sufficient 30 to 100 Reference: Nathalia MF,Emi DUFFY, Christopher NAVAS, et al. Evaluation,treatment, and prevention of vitamin D deficiency; an Endocrine Society clinical practice guideline. JCEM. 2010; 96(7):1911-30.PERFORMED BY:[address] [address] [place], [place] [phone] MEDICAL DIRECTORNATALIA MIKE M.D. Performed By: #### V [id number], LIPID, T4F, TSH3 wRFLX ####[facility] [place] [address] [place] Vitamin D+Metabolites [Mass/ volume] in Serum or PlasmaOrdered By: Maxim Pinto on 12-14-2022 Vitamin D+Metabolites [Mass/Vol] 28.0 ng/mL 30-100 [facility] Glucose Glucometer (BldC) [M ass/Vol]Ordered By: Braulio Dukes on 12-10-2022 Glucose [Mass/Vol] 194 mg/dL [facility] Comment on above: Random Glucose Refer ence Range is dependent on time and content of last meal. Glucose of more than 200 mg/dL in a nonstressed, ambulatory subject supports the diagnosis of Diabetes Mellitus. Glucose Poct Glucometerson 0 12-10-2022 Commemt1 Glu2: Cleaned Meter Normal [facility] Comment on above: Result Comment: PERF ORMED BY:[address] [address] [place], [place] [phone] MEDICAL DIRECTORNATALIA MIKE M.D. Performed By: #### G LULS ####Point of Care testing, Glucose [Mass/Vol] 194 mg/dL Normal [facility] Comment on above: Result Comment: [place] Glucose Reference Range is dependent on time and content of last meal. Glucose of more than 200 mg/dL in a nonstressed, ambulatory subject supports the diagnosis of Diabetes Mellitus. Performed By: #### G LULS ####Point of Care testing, Glucose [Mass/Vol] 327 mg/dL Normal [facility] Comment on above: Result Comment: [place] Glucose Reference Range is dependent on time and content of last meal. Glucose of more than 200 mg/dL in a nonstressed, ambulatory subject supports the diagnosis of Diabetes Mellitus.PERFORMED BY:[address] [place], [place] [phone] MEDICAL RONAN MIKE M.D. Performed By: #### G LULS ####Point of Care testing, Glucose [Mass/Vol] 279 mg/dL Normal [facility] Comment on above: Result Comment: [facility] Glucose Reference Range is dependent on time and content of last meal. Glucose of more than 200 mg/dL in a nonstressed, ambulatory subject supports the diagnosis of Diabetes Mellitus.PERFORMED BY:[address] [address] [place], [place] [phone] BRANDEN MIKE M.D. Performed By: #### G LULS ####Point of Care testing, No Panel InformationOrdered By: Braulio Dukes on 12-10-2022 Bedside Glucose Comment Glu2: cleaned meter [facility] Glu2: cleaned meter [facility] Glucose Poct Glucometerson 0 12-09-2022 Glucose [Mass/Vol] 106 mg/dL Normal [facility] Comment on above: Result Comment: [facility] Glucose Reference Range is dependent on time and content of last meal. Glucose of more than 200 mg/dL in a nonstressed, ambulatory subject supports the diagnosis of Diabetes Mellitus.PERFORMED BY:[place] [address] [address], [place] [phone] BRANDEN MIKE M.D. Performed By: #### G LULS ####Point of Care testing, Glucose [Mass/Vol] 182 mg/dL Normal [facility] Comment on above: Result Comment: [facility] Glucose Reference Range is dependent on time and content of last meal. Glucose of more than 200 mg/dL in a nonstressed, ambulatory subject supports the diagnosis of Diabetes Mellitus.PERFORMED BY:[address] [place], [place] [phone] MEDICAL DIRECTORNATALIA MIKE M.D. Performed By: #### G LULS ####Point of Care testing, Glucose [Mass/Vol] 306 mg/dL Normal [facility] Comment on above: Result Comment: [facility] Glucose Reference Range is dependent on time and content of last meal. Glucose of more than 200 mg/dL in a nonstressed, ambulatory subject supports the diagnosis of Diabetes Mellitus.PERFORMED BY:[address] [place], [place] [phone] MEDICAL RONAN MIKE M.D. Performed By: #### G LULS ####Point of Care testing, Glucose [Mass/Vol] 268 mg/dL Normal [facility] Comment on above: Result Comment: [facility] Glucose Reference Range is dependent on time and content of last meal. Glucose of more than 200 mg/dL in a nonstressed, ambulatory subject supports the diagnosis of Diabetes Mellitus.PERFORMED BY:[place] [address] [place], [place] [phone] MEDICAL RONAN MIKE M.D. Performed By: #### G LULS ####Point of Care testing, Glucose Poct Glucometerson 0 12-08-2022 Commemt1 Glu2: Cleaned Meter Normal [facility] Comment on above: Result Comment: PERF ORMED BY:[address] [address] [place], [place] [phone] MEDICAL RONAN MIKE M.D. Performed By: #### G LULS ####Point of Care testing, Glucose [Mass/Vol] 192 mg/dL Normal [facility] Comment on above: Result Comment: [place] om Glucose Reference Range is dependent on time and content of last meal. Glucose of more than 200 mg/dL in a nonstressed, ambulatory subject supports the diagnosis of Diabetes Mellitus. Performed By: #### G LULS ####Point of Care testing, Glucose [Mass/Vol] 279 mg/dL Normal [facility] Comment on above: Result Comment: [place] om Glucose Reference Range is dependent on time and content of last meal. Glucose of more than 200 mg/dL in a nonstressed, ambulatory subject supports the diagnosis of Diabetes Mellitus.PERFORMED BY:[place] [address] [place] [place], [place] [phone] MEDICAL DIRECTORNATALIA MIKE M.D. Performed By: #### G LULS ####Point of Care testing, Commemt1 Glu2: Cleaned Meter Normal [facility] Comment on above: Result Comment: PERF ORMED BY:[place] [address] [place], [place] [phone] MEDICAL RONAN MIKE M.D. Performed By: #### G LULS ####Point of Care testing, Glucose [Mass/Vol] 252 mg/dL Normal [facility] Comment on above: Result Comment: [place] om Glucose Reference Range is dependent on time and content of last meal. Glucose of more than 200 mg/dL in a nonstressed, ambulatory subject supports the diagnosis of Diabetes Mellitus. Performed By: #### G LULS ####Point of Care testing, Glucose [Mass/Vol] 301 mg/dL Normal [facility] Comment on above: Result Comment: [place] om Glucose Reference Range is dependent on time and content of last meal. Glucose of more than 200 mg/dL in a nonstressed, ambulatory subject supports the diagnosis of Diabetes Mellitus.PERFORMED BY:[place] [address] [place] [place], [place] [phone] MEDICAL RONAN MIKE M.D. Performed By: #### G LULS ####Point of Care testing, Glucose Poct Glucometerson 0 6-11-2023 Commemt1 Glu2: Cleaned Meter [facility] Comment on above: Result Comment: PERF ORMED BY:[place] [address] [address] [place], [place] [phone] MEDICAL DIRECTORNATALIA MIKE M.D. Performed By: #### G LULS ####Point of Care testing, Glucose [Mass/Vol] 229 mg/dL Normal [facility] Comment on above: Result Comment: [place] om Glucose Reference Range is dependent on time and content of last meal. Glucose of more than 200 mg/dL in a nonstressed, ambulatory subject supports the diagnosis of Diabetes Mellitus. Performed By: #### G LULS ####Point of Care testing, Commemt1 Glu2: Cleaned Meter [facility] Comment on above: Result Comment: PERF ORMED BY:[place] [address] [address] [place], [place] [phone] MEDICAL DIRECTORNATALIA MIKE M.D. Performed By: #### G LULS ####Point of Care testing, Glucose [Mass/Vol] 138 mg/dL Normal [facility] Comment on above: Result Comment: [place] om Glucose Reference Range is dependent on time and content of last meal. Glucose of more than 200 mg/dL in a nonstressed, ambulatory subject supports the diagnosis of Diabetes Mellitus. Performed By: #### G LULS ####Point of Care testing, Commemt1 Glu2: Cleaned Meter [facility] Comment on above: Result Comment: PERF ORMED BY:[place] [address] [place], [place] [phone] MEDICAL DIRECTORNATALIA MIKE M.D. Performed By: #### G LULS ####Point of Care testing, Glucose [Mass/Vol] 195 mg/dL Normal [facility] Comment on above: Result Comment: [place] om Glucose Reference Range is dependent on time and content of last meal. Glucose of more than 200 mg/dL in a nonstressed, ambulatory subject supports the diagnosis of Diabetes Mellitus. Performed By: #### G LULS ####Point of Care testing, Glucose [Mass/Vol] 332 mg/dL Normal [facility] Comment on above: Result Comment: [facility] Glucose Reference Range is dependent on time and content of last meal. Glucose of more than 200 mg/dL in a nonstressed, ambulatory subject supports the diagnosis of Diabetes Mellitus.PERFORMED BY:[address] [place], [place] [phone] MEDICAL DIRECTORNATALIA MIKE M.D. Performed By: #### G LUTRAY ####Point of Care testing, Alanine aminotransferase [En zymatic activity/volume] in Serum or PlasmaOrdered By: Braulio Dukes on 12-06-2022 ALT [Catalytic activity/Vol] 11 U/L 7-52 [facility] Albumin [Mass/volume] in Ser um or Plasma by Bromocresol green (BCG) dye binding methoOrdered By: Braulio Dukes on 12-06-2022 Albumin BCG dye [Mass/Vol] 4.3 g/dL 3.5-5.7 [facility] Alkaline phosphatase [Enzyma tic activity/volume] in Serum or PlasmaOrdered By: Braulio Dukes on 12-06-2022 ALP [Catalytic activity/Vol] 60 U/L 34-104 [facility] Aspartate aminotransferase [ Enzymatic activity/volume] in Serum or PlasmaOrdered By: Braulio Dukes on 12-06-2022 AST [Catalytic activity/Vol] 11 U/L 13-39 [facility] Basic Metabolic Panelon 11-27 Anion gap [Moles/Vol] 9.7 mmol/L Normal 6.0-15.0 [facility] Comment on above: Performed By: #### B MP, CBC, LIPASE, HEPATIC ####[facility] [id number] [place] [address] [place] Calcium [Mass/Vol] 9.5 mg/dL Normal 8.6-10.3 [facility] Comment on above: Performed By: #### B MP, CBC, LIPASE, HEPATIC ####[facility] [place] [address] [place] Chloride [Moles/Vol] 103 mmol/L Normal 98-107 [facility] Comment on above: Performed By: #### B MP, CBC, LIPASE, HEPATIC ####[place] [address] [place] [address] [place] CO2 [Moles/Vol] 31.2 mmol/L High 21.0-31.0 [facility] Comment on above: Performed By: #### B MP, CBC, LIPASE, HEPATIC ####[place] [address] [place] [id number] [place] Creatinine [Mass/Vol] 0.73 mg/dL Normal 0.60-1.20 [facility] Comment on above: Performed By: #### B MP, CBC, LIPASE, HEPATIC ####[place] [address] [place] [id number] [place] Creatinine Clr Calc Pharmacy 129.92 [facility] Comment on above: Performed By: #### B MP, CBC, LIPASE, HEPATIC ####[place] [address] [place] [id number] [place] GFR/1.73 sq M.predicted MDRD (S/P/Bld) [Vol rate/Area] mL/min/{1.73_m2} [facility] Comment on above: Performed By: #### B MP, CBC, LIPASE, HEPATIC ####[place] [id number] [place] Glucose [Mass/Vol] 116 mg/dL High 70-100 [facility] Comment on above: Result Comment: [place] Glucose Reference Range is dependent on time and content of last meal. Glucose of more than 200 mg/dL in a nonstressed, ambulatory subject supports the diagnosis of Diabetes Mellitus. ADA recommended reference range Performed By: #### B MP, CBC, LIPASE, HEPATIC ####[place] [address] [place] [id number] [place] Potassium [Moles/Vol] 3.9 mmol/L Normal 3.5-5.1 [facility] Comment on above: Performed By: #### B MP, CBC, LIPASE, HEPATIC ####[facility] [id number] [place] [address] [place] Sodium [Moles/Vol] 140 mmol/L Normal 136-145 [facility] Comment on above: Performed By: #### B MP, CBC, LIPASE, HEPATIC ####[facility] [id number] [place] [address] [place] Urea nitrogen [Mass/Vol] 17 mg/dL Normal 7-25 [facility] Comment on above: Performed By: #### B MP, CBC, LIPASE, HEPATIC ####[facility] [id number] [place] [address] [place] Basophils Auto (Bld) [#/Vol] Ordered By: Gurwinder Philippe on 12-06-2022 Basophils (Bld) [#/Vol] 0.1 10*3/uL 0.0-0.2 [facility] Basophils/100 WBC Auto (Bld) Ordered By: Gurwinder Philippe on 12-06-2022 Basophils/100 WBC (Bld) 1.0 % . [facility] Bilirubin.direct [Mass/volum e] in Serum or PlasmaOrdered By: Gurwinder Philippe on 12-06-2022 Bilirubin.direct [Mass/Vol] 0.10 mg/dL 0.03-0.18 [facility] Bilirubin.total [Mass/volume ] in Serum or PlasmaOrdered By: Braulio Dukes on 12-06-2022 Bilirubin [Mass/Vol] 0.4 mg/dL 0.3-1.0 [facility] C Urineon 12-06-2022 Bacteria identified Cx Nom (U) Normal [facility] Comment on above: Performed By: #### 2 [id number], [id number] ####[facility] [address] [place] [address] CMP with reflex to A1Con Albumin [Mass/Vol] 4.3 g/dL Normal 3.5-5.7 [facility] Comment on above: Performed By: #### C MP wRFX A1C, EBS A1C ####[facility] [id number] [place] [id number] [place] Albumin/Globulin [Mass ratio] 1.7 {ratio} Normal [facility] Comment on above: Performed By: #### C MP wRFX A1C, EBS A1C ####[address] [place] [place] [address] [place] ALP [Catalytic activity/Vol] 60 U/L Normal 34-104 [facility] Comment on above: Performed By: #### C MP wRFX A1C, EBS A1C ####[address] [place] [address] [place] ALT [Catalytic activity/Vol] 11 U/L Normal 7-52 [facility] Comment on above: Performed By: #### C MP wRFX A1C, EBS A1C ####[place] [id number] [place] Anion gap [Moles/Vol] 12.5 mmol/L Normal 6.0-15.0 [facility] Comment on above: Performed By: #### C MP wRFX A1C, EBS A1C ####[place] [id number] [place] AST [Catalytic activity/Vol] 11 U/L Low 13-39 [facility] Comment on above: Performed By: #### C MP wRFX A1C, EBS A1C ####[place] [id number] [place] Bilirubin [Mass/Vol] 0.4 mg/dL Normal 0.3-1.0 [facility] Comment on above: Performed By: #### C MP wRFX A1C, EBS A1C ####[place] [id number] [place] Calcium [Mass/Vol] 9.4 mg/dL Normal 8.6-10.3 [facility] Comment on above: Performed By: #### C MP wRFX A1C, EBS A1C ####[address] [address] [place] Chloride [Moles/Vol] 102 mmol/L Normal 98-107 [facility] Comment on above: Performed By: #### C MP wRFX A1C, EBS A1C ####[facility] [id number] [place] [address] [place] CO2 [Moles/Vol] 28.0 mmol/L Normal 21.0-31.0 [facility] Comment on above: Performed By: #### C MP wRFX A1C, EBS A1C ####[facility] [place] [address] [place] Creatinine [Mass/Vol] 0.94 mg/dL Normal 0.60-1.20 [facility] Comment on above: Performed By: #### C MP wRFX A1C, EBS A1C ####[address] [place] [address] [place] Creatinine Clr Calc Pharmacy 101.10 [facility] Comment on above: Result Comment: PERF ORMED BY:[address] [place], [place] [id number] MEDICAL RONAN MIKE M.D. Performed By: #### C MP wRFX A1C, EBS A1C ####[address] [address] [place] GFR/1.73 sq M.predicted MDRD (S/P/Bld) [Vol rate/Area] mL/min/{1.73_m2} [facility] Comment on above: Performed By: #### C MP wRFX A1C, EBS A1C ####[address] [place] [address] [place] Globulin (S) [Mass/Vol] 2.6 g/dL [facility] Comment on above: Performed By: #### C MP wRFX A1C, EBS A1C ####[address] [place] [address] [place] Glucose [Mass/Vol] 295 mg/dL High 70-100 [facility] Comment on above: Result Comment: ADA recommended reference range Performed By: #### C MP wRFX A1C, EBS A1C ####[id number] [place] [address] [place] Potassium [Moles/Vol] 4.5 mmol/L Normal 3.5-5.1 [facility] Comment on above: Performed By: #### C MP wRFX A1C, EBS A1C ####[facility] [id number] [place] [id number] [place] Protein [Mass/Vol] 6.9 g/dL Normal 6.4-8.9 [facility] Comment on above: Performed By: #### C MP wRFX A1C, EBS A1C ####[facility] [id number] [place] [id number] [place] Sodium [Moles/Vol] 138 mmol/L Normal 136-145 [facility] Comment on above: Performed By: #### C MP wRFX A1C, EBS A1C ####[facility] [id number] Urea nitrogen [Mass/Vol] 19 mg/dL Normal 7-25 [facility] Comment on above: Performed By: #### C MP wRFX A1C, EBS A1C ####[facility] [id number] abdomen pelvis wo conon 0 12-06-2022 CT abdomen pelvis wo con Normal [facility] Calcium [Mass/volume] in Ser um or PlasmaOrdered By: Braulio Dukes on 12-06-2022 Calcium [Mass/Vol] 9.4 mg/dL 8.6-10.3 [facility] Carbon dioxide, total [Moles /volume] in Serum or PlasmaOrdered By: Braulio Dukes on 12-06-2022 CO2 [Moles/Vol] 28.0 mmol/L 21.0-31.0 [facility] Chloride [Moles/volume] in S jaron or PlasmaOrdered By: Braulio Dukes on 12-06-2022 Chloride [Moles/Vol] 102 mmol/L 98-107 [facility] Cholesterol [Mass/volume] in Serum or PlasmaOrdered By: Braulio Dukes on 12-06-2022 Cholesterol [Mass/Vol] 244 mg/dL 140-200 [facility] Comment on above: Chol less than 200 m g/dl low riskChol 201-239 mg/dl borderline riskChol 240 mg/dl and greater high risk Cholesterol in LDL Calc [Mas s/Vol]Ordered By: Braulio Dukes on 12-06-2022 Cholesterol in LDL [Mass/Vol] 137 mg/dL 0-100 [facility] Comment on above: LDL ATP III CLASSIFI CATIONLDL less than 100 mg/dL OptimalLDL 100-129 mg/dL Near or above optimalLDL 130-159 mg/dL Borderline highLDL 160-189 mg/dL HighLDL greater than 189 mg/dL Very high Cholesterol in VLDL Calc [Ma ss/Vol]Ordered By: Braulio Dukes on 12-06-2022 Cholesterol in VLDL [Mass/Vol] 44 mg/dL [facility] Complete Blood Count Auto Di ffon 12-06-2022 Basophils (Bld) [#/Vol] 0.1 10*3/uL Normal 0.0-0.2 [facility] Comment on above: Result Comment: PERF ORMED BY:[address] [place], [place] [id number] MEDICAL DIRECTORNATALIA MIKE M.D. Performed By: #### B MP, CBC, LIPASE, HEPATIC ####[address] Basophils/100 WBC (Bld) 1.0 % Normal . [facility] Comment on above: Performed By: #### B MP, CBC, LIPASE, HEPATIC ####[place] [id number] [place] Eosinophils (Bld) [#/Vol] 0.3 10*3/uL Normal 0.0-0.45 [facility] Comment on above: Performed By: #### B MP, CBC, LIPASE, HEPATIC ####[place] [id number] [place] Eosinophils/100 WBC (Bld) 4.3 % Normal . [facility] Comment on above: Performed By: #### B MP, CBC, LIPASE, HEPATIC ####[address] Erythrocyte distribution width (RBC) [Ratio] 12.9 % Normal 11.9-15.3 [facility] Comment on above: Performed By: #### B MP, CBC, LIPASE, HEPATIC ####[address] Hematocrit (Bld) [Volume fraction] 38.6 % Normal 34.0-46.4 [facility] Comment on above: Performed By: #### B MP, CBC, LIPASE, HEPATIC ####[address] Hemoglobin (Bld) [Mass/Vol] 13.4 g/dL Normal 11.8-15.4 [facility] Comment on above: Performed By: #### B MP, CBC, LIPASE, HEPATIC ####[address] Lymphocytes (Bld) [#/Vol] 2.4 10*3/uL Normal 1.00-4.8 [facility] Comment on above: Performed By: #### B MP, CBC, LIPASE, HEPATIC ####[address] Lymphocytes/100 WBC (Bld) 31.5 % Normal . [facility] Comment on above: Performed By: #### B MP, CBC, LIPASE, HEPATIC ####[address] MCH (RBC) [Entitic mass] 29.8 pg Normal 24.7-34.3 [facility] Comment on above: Performed By: #### B MP, CBC, LIPASE, HEPATIC ####[address] MCV (RBC) [Entitic vol] 86.2 fL Normal 80-100 [facility] Comment on above: Performed By: #### B MP, CBC, LIPASE, HEPATIC ####[address] Mean Corpuscular HGB Conc 34.6 g/dL Normal 32.0-35.0 [facility] Comment on above: Performed By: #### B MP, CBC, LIPASE, HEPATIC ####[place] [id number] Monocytes (Bld) [#/Vol] 0.6 10*3/uL Normal 0.0-0.8 [facility] Comment on above: Performed By: #### B MP, CBC, LIPASE, HEPATIC ####[place] [id number] [place] Monocytes/100 WBC (Bld) 7.3 % Normal . [facility] Comment on above: Performed By: #### B MP, CBC, LIPASE, HEPATIC ####[address] Monocytes/100 WBC (Bld) 17.28 % Normal 0.00-20.00 [facility] Comment on above: Performed By: #### B MP, CBC, LIPASE, HEPATIC ####[address] Neutrophils (Bld) [#/Vol] 4.3 10*3/uL Normal 1.8-7.7 [facility] Comment on above: Performed By: #### B MP, CBC, LIPASE, HEPATIC ####[place] [id number] [place] Neutrophils/100 WBC (Bld) 55.9 % Normal . [facility] Comment on above: Performed By: #### B MP, CBC, LIPASE, HEPATIC ####[place] [id number] [place] NRBC% 0.1 /100{WBC} Normal 0-0.5 [facility] Comment on above: Performed By: #### B MP, CBC, LIPASE, HEPATIC ####[place] [id number] [place] Platelet mean volume (Bld) [Entitic vol] 7.0 fL Normal 6.3-10.7 [facility] Comment on above: Performed By: #### B MP, CBC, LIPASE, HEPATIC ####[place] [id number] [place] Platelets (Bld) [#/Vol] 211 10*3/uL Normal 150-450 [facility] Comment on above: Performed By: #### B MP, CBC, LIPASE, HEPATIC ####[place] [id number] RBC (Bld) [#/Vol] 4.48 10*6/uL Normal 3.60-5.00 [facility] Comment on above: Performed By: #### B MP, CBC, LIPASE, HEPATIC ####[place] [id number] [place] WBC (Bld) [#/Vol] 7.8 10*3/uL Normal 3.8-11.6 [facility] Comment on above: Performed By: #### B MP, CBC, LIPASE, HEPATIC ####[address] Creatinine [Mass/volume] in Serum or PlasmaOrdered By: Braulio Dukes on 12-06-2022 Creatinine [Mass/Vol] 0.94 mg/dL 0.60-1.20 [facility] EBS A1C with Estimated Avlevi Kumar ilirn 12-06-2022 Glucose [Mass/Vol] 226 mg/dL Normal [facility] Comment on above: Result Comment: PERF ORMED BY:[address] [place], [place] [phone] MEDICAL DIRECTORNATALIA MIKE M.D. Performed By: #### C MP wRFX A1C, EBS A1C ####[place] [id number] [place] HbA1c (Bld) [Mass fraction] 9.5 % High 4.3-5.6 [facility] Comment on above: Result Comment: Incr eased risk for diabetes: 5.7 - 6.4 diabetes: >6.4 glycemic control for adults with diabetes: <7.0 Performed By: #### C MP wRFX A1C, EBS A1C ####[place] [id number] [place] ECG 12 lead ECGon 12-06-2022 ECG [address] [facility] Eosinophils Auto (Bld) [#/Vo l]Ordered By: Gurwinder Philippe on 12-06-2022 Eosinophils (Bld) [#/Vol] 0.3 10*3/uL 0.0-0.45 [facility] Eosinophils/100 WBC Auto (Bl d)Ordered By: Gurwinder Philippe on 12-06-2022 Eosinophils/100 WBC (Bld) 4.3 % . [facility] Erythrocyte distribution wid th Auto (RBC) [Ratio]Ordered By: Gurwinder Philippe on 12-06-2022 Erythrocyte distribution width (RBC) [Ratio] 12.9 % 11.9-15.3 [facility] Free T4 (Free Thyroxine)on 0 12-06-2022 Free T4 [Mass/Vol] 0.51 ng/dL Low 0.61-1.12 [facility] Comment on above: Order Comment: FASTI NG Y Comment USE FROM ER PLEASE Performed By: #### V [id number], TSH3 wRFLX, T4F, LIPID ####[facility] [place] [address] [place] Globulin Calc (S) [Mass/Vol] Ordered By: Braulio Dukes on 12-06-2022 Globulin (S) [Mass/Vol] 2.6 g/dL [facility] Glucose Poct Glucometerson 0 12-06-2022 Commemt1 Glu2: Cleaned Meter Normal [facility] Comment on above: Result Comment: PERF ORMED BY:[address] [place], [place] [id number] MEDICAL DIRECTORNATALIA MIKE M.D. Performed By: #### G LULS ####Point of Care testing, Glucose [Mass/Vol] 316 mg/dL Normal [facility] Comment on above: Result Comment: [facility] Glucose Reference Range is dependent on time and content of last meal. Glucose of more than 200 mg/dL in a nonstressed, ambulatory subject supports the diagnosis of Diabetes Mellitus. Performed By: #### G LULS ####Point of Care testing, Glucose [Mass/volume] in Ser um or PlasmaOrdered By: Braulio Dukes on 12-06-2022 Glucose [Mass/Vol] 295 mg/dL 70-100 [facility] Comment on above: ADA recommended refe rence range Glucose mean value [Mass/vol ume] in Blood Estimated from glycated hemoglobinOrdered By: Braulio Dukes on 12-06-2022 Average glucose Estimated from glycated hemoglobin (Bld) [Mass/Vol] 226 mg/dL [facility] Hematocrit Auto (Bld) [Volum e fraction]Ordered By: Gurwinder Philippe on 12-06-2022 Hematocrit (Bld) [Volume fraction] 38.6 % 34.0-46.4 [facility] Hemoglobin [Mass/volume] in BloodOrdered By: Gurwinder Philippe on 12-06-2022 Hemoglobin (Bld) [Mass/Vol] 13.4 g/dL 11.8-15.4 [facility] Hepatic Panelon 12-06-2022 Albumin [Mass/Vol] 4.7 g/dL Normal 3.5-5.7 [facility] Comment on above: Performed By: #### B MP, CBC, LIPASE, HEPATIC ####[address] [place] [address] [place] [id number] [place] Albumin/Globulin [Mass ratio] 1.6 {ratio} Normal [facility] Comment on above: Performed By: #### B MP, CBC, LIPASE, HEPATIC ####[address] [place] [address] [place] ALP [Catalytic activity/Vol] 72 U/L Normal 34-104 [facility] Comment on above: Performed By: #### B MP, CBC, LIPASE, HEPATIC ####[address] [place] [address] [place] ALT [Catalytic activity/Vol] 13 U/L Normal 7-52 [facility] Comment on above: Performed By: #### B MP, CBC, LIPASE, HEPATIC ####[facility] [id number] [place] [address] [place] AST [Catalytic activity/Vol] 12 U/L Low 13-39 [facility] Comment on above: Performed By: #### B MP, CBC, LIPASE, HEPATIC ####[address] [place] [id number] [place] Bilirubin [Mass/Vol] 0.4 mg/dL Normal 0.3-1.0 [facility] Comment on above: Performed By: #### B MP, CBC, LIPASE, HEPATIC ####[address] [place] [address] [place] Bilirubin,Indirect 0.3 mg/dL Normal [facility] Comment on above: Performed By: #### B MP, CBC, LIPASE, HEPATIC ####[address] [place] [address] [place] Bilirubin.indirect [Mass/Vol] 0.10 mg/dL Normal 0.03-0.18 [facility] Comment on above: Performed By: #### B MP, CBC, LIPASE, HEPATIC ####[place] [id number] [place] Globulin (S) [Mass/Vol] 3.0 g/dL Normal [facility] Comment on above: Performed By: #### B MP, CBC, LIPASE, HEPATIC ####[place] [id number] [place] Protein [Mass/Vol] 7.7 g/dL Normal 6.4-8.9 [facility] Comment on above: Performed By: #### B MP, CBC, LIPASE, HEPATIC ####[address] Laboratory - Hematology and Cell countsOrdered By: Braulio Dukes on 12-06-2022 HbA1c (Bld) [Mass fraction] 9.5 % 4.3-5.6 [facility] Comment on above: Increased risk for d iabetes: 5.7 - 6.4diabetes: >6.4glycemic control for adults with diabetes: <7.0 Leukocytes [#/volume] correc suzanne for nucleated erythrocytes in Blood by Automated counOrdered By: Gurwinder Philippe on 12-06-2022 WBC corrected for nucl RBC Auto (Bld) [#/Vol] 7.8 10*3/uL 3.8-11.6 [facility] Lipaseon 12-06-2022 Lipase [Catalytic activity/Vol] 26.0 U/L Normal 11.0-82.0 [facility] Comment on above: Result Comment: PERF ORMED BY:[address] [place], [place] [phone] MEDICAL DIRECTORNATALIA MIKE M.D. Performed By: #### B MP, CBC, LIPASE, HEPATIC ####[facility] [id number] [place] [address] [place] Lipase [Enzymatic activity/v olume] in Serum or PlasmaOrdered By: Gurwinder Philippe on 12-06-2022 Lipase [Catalytic activity/Vol] 26.0 U/L 11.0-82.0 [facility] Lipid Panelon 12-06-2022 Cholesterol [Mass/Vol] 244 mg/dL High 140-200 [facility] Comment on above: Order Comment: ELENA Vitale Comment USE FROM ER PLEASE Result Comment: Chol less than 200 mg/dl low risk Chol 201-239 mg/dl borderline risk Chol 240 mg/dl and greater high risk Performed By: #### V [id number], TSH3 wRFLX, T4F, LIPID ####[address] [address] [place] Cholesterol in HDL [Mass/Vol] 62 mg/dL Normal 23-92 [facility] Comment on above: Order Comment: ELENA Vitale Comment USE FROM ER PLEASE Result Comment: HDL CHOL ATP-III CLASSIFICATION Cardiovascular Risk HDL > or equal to 60 mg/dL LOW HDL < 40 mg/dL HIGH Performed By: #### V [id number], TSH3 wRFLX, T4F, LIPID ####[address] [address] [place] Cholesterol.total/Chol esterol in HDL [Mass ratio] 3.9 {ratio} Normal <5.0 [facility] Comment on above: Order Comment: ELENA Vitale Comment USE FROM ER PLEASE Performed By: #### V [id number], TSH3 wRFLX, T4F, LIPID ####[address] [address] [place] LDL Cholesterol,Calculated 137 mg/dL High 0-100 [facility] Comment on above: Order Comment: ELENA Vitale Comment USE FROM ER PLEASE Result Comment: LDL ATP III CLASSIFICATION LDL less than 100 mg/dL Optimal LDL 100-129 mg/dL Near or above optimal LDL 130-159 mg/dL Borderline high LDL 160-189 mg/dL High LDL greater than 189 mg/dL Very high Performed By: #### V [id number], TSH3 wRFLX, T4F, LIPID ####[facility] [id number] [place] [id number] [place] Triglyceride w/Reflex 224 mg/dL High 0-149 [facility] Comment on above: Order Comment: ELENA Vitale Comment USE FROM ER PLEASE Result Comment: TRIG ATP III CLASSIFICATION TRIG less than 150 mg/dL Normal TRIG 150-199 mg/dL Borderline high TRIG 200-500 mg/dL High TRIG greater than 500 mg/dL Very high Standard traceable to the Center for Disease Conrtrol and Prevention (CDC) test method. Performed By: #### V [id number], TSH3 wRFLX, T4F, LIPID ####[facility] [id number] [place] [id number] [place] VLDL CHOLESTEROL 44 mg/dL Normal [facility] Comment on above: Order Comment: ELENA Vitale Comment USE FROM ER PLEASE Performed By: #### V [id number], TSH3 wRFLX, T4F, LIPID ####[facility] [id number] [place] [id number] [place] Lymphocytes Auto (Bld) [#/Vo l]Ordered By: Gurwinder Philippe on 12-06-2022 Lymphocytes (Bld) [#/Vol] 2.4 10*3/uL 1.00-4.8 [facility] Lymphocytes/100 WBC Auto (Bl d)Ordered By: Gurwinder Philippe on 12-06-2022 Lymphocytes/100 WBC (Bld) 31.5 % . [facility] MCH Auto (RBC) [Entitic mass ]Ordered By: Gurwinder Philippe on 12-06-2022 MCH (RBC) [Entitic mass] 29.8 pg 24.7-34.3 [facility] MCHC Auto (RBC) [Mass/Vol]Or dered By: Gurwinder Philippe on 12-06-2022 MCHC (RBC) [Mass/Vol] 34.6 g/dL 32.0-35.0 [facility] MCV Auto (RBC) [Entitic vol] Ordered By: Gurwinder Philippe on 12-06-2022 MCV (RBC) [Entitic vol] 86.2 fL 80-100 [facility] Monocyte distribution width [Entitic volume] in Blood by AutomatedOrdered By: Gurwinder Philippe on 12-06-2022 Monocyte distribution width Auto (Bld) [Entitic vol] 17.28 % 0.00-20.00 [facility] Monocytes Auto (Bld) [#/Vol] Ordered By: Gurwinder Philippe on 12-06-2022 Monocytes (Bld) [#/Vol] 0.6 10*3/uL 0.0-0.8 [facility] Monocytes/100 WBC Auto (Bld) Ordered By: Gurwinder Philippe on 12-06-2022 Monocytes/100 WBC (Bld) 7.3 % . [facility] Neutrophils Auto (Bld) [#/Vo l]Ordered By: Gurwinder Philippe on 12-06-2022 Neutrophils (Bld) [#/Vol] 4.3 10*3/uL 1.8-7.7 [facility] Neutrophils/100 WBC Auto (Bl d)Ordered By: Gurwinder Philippe on 12-06-2022 Neutrophils/100 WBC (Bld) 55.9 % . [facility] No Panel InformationOrdered By: Braulio Dukes on 12-06-2022 Estimated GFR (CKD-EPI) > 60.0 mL/Min [facility] Creatinine Clearance (Chem 101.10 [facility] > 60.0 mL/Min [facility] 101.10 [facility] 9.5 % 4.3-5.6 [facility] Nucleated erythrocytes [Pres ence] in Blood by Automated countOrdered By: Gurwinder Philippe on 12-06-2022 Nucleated RBC Auto Ql (Bld) 0.1 /100{WBC} 0-0.5 [facility] Platelet mean volume Auto (B ld) [Entitic vol]Ordered By: Gurwinder Philippe on 12-06-2022 Platelet mean volume (Bld) [Entitic vol] 7.0 fL 6.3-10.7 [facility] Platelets Auto (Bld) [#/Vol] Ordered By: Gurwinder Philippe on 12-06-2022 Platelets (Bld) [#/Vol] 211 10*3/uL 150-450 [facility] Potassium [Moles/volume] in Serum or PlasmaOrdered By: Braulio Dukes on 12-06-2022 Potassium [Moles/Vol] 4.5 mmol/L 3.5-5.1 [facility] Protein [Mass/volume] in Ser um or PlasmaOrdered By: Braulio Dukes on 12-06-2022 Protein [Mass/Vol] 6.9 g/dL 6.4-8.9 [facility] RBC Auto (Bld) [#/Vol]Ordere d By: Gurwinder Philippe on 12-06-2022 RBC (Bld) [#/Vol] 4.48 10*6/uL 3.60-5.00 [facility] Serum or plasma albumin/glob ulin mass ratioOrdered By: Braulio Dukes on 12-06-2022 Albumin/Globulin [Mass ratio] 1.7 {ratio} [facility] Serum or plasma anion gap de terminationOrdered By: Braulio Dukes on 12-06-2022 Anion gap [Moles/Vol] 12.5 mmol/L 6.0-15.0 [facility] Serum or plasma high density lipoprotein (HDL) cholesterol measurementOrdered By: Braulio Dukes on 12-06-2022 Cholesterol in HDL [Mass/Vol] 62 mg/dL 23-92 [facility] Comment on above: HDL CHOL ATP-III CLA SSIFICATION Cardiovascular RiskHDL > or equal to 60 mg/dL LOWHDL < 40 mg/dL HIGH Serum or plasma non-glucuron idated bilirubin measurement (mass/volume)Ordered By: Gurwinder Philippe on 12-06-2022 Bilirubin.indirect [Mass/Vol] 0.3 mg/dL [facility] Serum or plasma total choles terol/high density lipoprotein (HDL) cholesterol mass ratOrdered By: Braulio Dukes on 12-06-2022 Cholesterol.total/Chol esterol in HDL [Mass ratio] 3.9 {ratio} <5.0 [facility] Sodium [Moles/volume] in Ser um or PlasmaOrdered By: Braulio Dukes on 12-06-2022 Sodium [Moles/Vol] 138 mmol/L 136-145 [facility] Thyroid Stim Hormone w/Rflxo n 12-06-2022 Thyroid Stim Hormone w/Rflx 24.60 u[iU]/mL High 0.45-5.33 [facility] Comment on above: Order Comment: ELENA Vitale Comment USE FROM ER PLEASE Performed By: #### V [id number], TSH3 wRFLX, T4F, LIPID ####[facility] [id number] Thyrotropin [Units/volume] i n Serum or PlasmaOrdered By: Braulio Dukes on 12-06-2022 TSH Qn 24.60 m[IU]/L 0.45-5.33 [facility] Thyroxine (T4) free [Mass/vo lume] in Serum or PlasmaOrdered By: Braulio Dukes on 12-06-2022 Free T4 [Mass/Vol] 0.51 ng/dL 0.61-1.12 [facility] Triglyceride [Mass/volume] i n Serum or PlasmaOrdered By: Braulio Dukes on 12-06-2022 Triglyceride [Mass/Vol] 224 mg/dL 0-149 [facility] Comment on above: TRIG ATP III CLASSIF ICATIONTRIG less than 150 mg/dL NormalTRIG 150-199 mg/dL Borderline highTRIG 200-500 mg/dL High TRIG greater than 500 mg/dL Very highStandard traceable to the Center for Disease Conrtrol and Prevention (CDC) test method. Urea nitrogen [Mass/volume] in Serum or PlasmaOrdered By: Braulio Dukes on 12-06-2022 Urea nitrogen [Mass/Vol] 19 mg/dL 7-25 [facility] Vitamin D 25 Hydroxy Totalon 12-06-2022 Vitamin D 25 Hydroxy Total 36.4 ng/mL Normal 30-100 [facility] Comment on above: Order Comment: ELKalpana Vitale Comment USE FROM ER PLEASE Result Comment: ELIAS MIN D STATUS 25(OH)VITAMIN D RANGE (ng/mL) Deficient <20 Insufficient 20 to <30 Sufficient 30 to 100 Reference: Emi Toney, Christopher NAVAS et al. Evaluation,treatment, and prevention of vitamin D deficiency; an Endocrine Society clinical practice guideline. JCEM. 2010; 96(7):191-.PERFORMED BY:[address] [place], [place] [id number] MEDICAL DIRECTORNATALIA MIKE M.D. Performed By: #### V [id number], TSH3 wRFLX, T4F, LIPID ####[facility] [place] [id number] [place] Vitamin D+Metabolites [Mass/ volume] in Serum or PlasmaOrdered By: Braulio Dukes on 12-06-2022 Vitamin D+Metabolites [Mass/Vol] 36.4 ng/mL 30-100 [facility] Comment on above: VITAMIN D STATUS 25( [place])VITAMIN D RANGE (ng/mL) Deficient <20 Insufficient 20 to <30Sufficient 30 to 100Reference: Emi Toney, Christopher NAVAS, et al. Evaluation,treatment, and prevention of vitamin D deficiency; an Endocrine Society clinical practice guideline. JCEM. 2010; 96(7):1911-. WBC Auto (Bld) [#/Vol]Ordere d By: Gurwinder Philippe on 12-06-2022 WBC (Bld) [#/Vol] 7.8 10*3/uL 3.8-11.6 [facility] Amphetamine Screen Ql (U)Ord ered By: Damian Carpenter on 12-05-2022 Amphetamines Ql (U) Negative Negative [facility] Automated erythrocytes count in urine sediment (number/area)Ordered By: Damian Carpenter on 12-05-2022 RBC Auto (Urine sed) [#/Area] Innumerable [HPF] 0-4 [facility] Automated leukocytes count i n urine sediment (number/area)Ordered By: Damian Carpenter on 12-05-2022 WBC Auto (Urine sed) [#/Area] 10-19 [HPF] 0-4 [facility] Barbiturates [Presence] in U rine by Screen methodOrdered By: Damian Carpenter on 12-05-2022 Barbiturates Screen Ql (U) Negative Negative [facility] Benzodiazepines Screen Ql (U )Ordered By: Damian Carpenter on 12-05-2022 Benzodiazepines Ql (U) Negative Negative [facility] Benzoylecgonine [Presence] i n Urine by Screen methodOrdered By: Damian Carpenter on 12-05-2022 Benzoylecgonine Screen Ql (U) Negative Negative [facility] Bilirubin Test strip Ql (U)O rdered By: Damian Carpenter on 12-05-2022 Bilirubin Ql (U) Negative Negative [facility] Cannabinoids [Presence] in U rine by Screen methodOrdered By: Damian Carpenter on 12-05-2022 Cannabinoids Screen Ql (U) Negative Negative [facility] Comment on above: These are unconfirme d results and should not be used for legal purposes. Drug Cut-Off Concentration: AMPH 1000 ng/mL SONIA 200 ng/mL JEREMY 200 ng/mL COCM 300 ng/mL OP 300 ng/mL PCP 25 ng/mL THC 20 ng/mL Color Auto (U)Ordered By: Roshni Carepnter on 12-05-2022 Color (U) Yellow Yellow [facility] Dipstick and Microscopicon 0 12-05-2022 Appearance (U) Cloudy Critically abnormal Clear [facility] Comment on above: Order Comment: Name Collection Type:: Clean-Voided Midstream Performed By: #### A DDONUAPLUS, CHENCHOCG, CUU ####[facility] [address] [place] [address] [place] Bacteria,Urine None Seen Normal None Seen [facility] Comment on above: Order Comment: Name Collection Type:: Clean-Voided Midstream Performed By: #### A DDONUAPLUS, UHCG, CUU ####[address] [address] [place] Bilirubin,Urine Negative Normal Negative [facility] Comment on above: Order Comment: Name Collection Type:: Clean-Voided Midstream Performed By: #### A DDONUAPLUS, UHCG, CUU ####[address] [address] [place] Color (U) Yellow Normal Yellow [facility] Comment on above: Order Comment: Name Collection Type:: Clean-Voided Midstream Performed By: #### A DDONUAPLUS, UHCG, CUU ####[address] [address] [place] Glucose Ql (U) 250 mg/dL High Normal [facility] Comment on above: Order Comment: Name Collection Type:: Clean-Voided Midstream Performed By: #### A DDONUAPLUS, UHCG, CUU ####[place] [id number] [place] Hyaline Casts,Urine None Seen Normal 0-8 [facility] Comment on above: Order Comment: Name Collection Type:: Clean-Voided Midstream Performed By: #### A DDONUAPLUS, UHCG, CUU ####[place] [id number] [place] Ketones Ql (U) Negative Normal Negative [facility] Comment on above: Order Comment: Name Collection Type:: Clean-Voided Midstream Performed By: #### A DDONUAPLUS, UHCG, CUU ####[address] [address] [place] Leukocyte esterase Test strip Ql (U) 2+ High Negative [facility] Comment on above: Order Comment: Name Collection Type:: Clean-Voided Midstream Performed By: #### A DDONUAPLUS, UHCG, CUU ####[address] [address] [place] Nitrite,Urine Negative Normal Negative [facility] Comment on above: Order Comment: Name Collection Type:: Clean-Voided Midstream Performed By: #### A DDONUAPLUS, UHCG, CUU ####[address] [address] [place] Occult Blood,Urine 3+ High Negative [facility] Comment on above: Order Comment: Name Collection Type:: Clean-Voided Midstream Performed By: #### A DDONUAPLUS, UHCG, CUU ####[address] [address] [place] pH (U) 5.5 [pH] Normal 5.0-9.0 [facility] Comment on above: Order Comment: Name Collection Type:: Clean-Voided Midstream Performed By: #### A DDONUAPLUS, UHCG, CUU ####[address] [address] [place] Protein,Urine Negative Normal Negative [facility] Comment on above: Order Comment: Name Collection Type:: Clean-Voided Midstream Performed By: #### A DDONUAPLUS, UHCG, CUU ####[address] [address] [place] RBC,Urine Innumerable High 0-4 [facility] Comment on above: Order Comment: Name Collection Type:: Clean-Voided Midstream Performed By: #### A DDONUAPLUS, UHCG, CUU ####[address] [address] [place] Specificy [place],Urine 1.025 Normal 1.001-1.[address] [facility] Comment on above: Order Comment: Name Collection Type:: Clean-Voided Midstream Performed By: #### A DDONUAPLUS, UHCG, CUU ####[address] [address] [place] Squamous Epithelial Cell,Urine 5-9 High 0-2 [facility] Comment on above: Order Comment: Name Collection Type:: Clean-Voided Midstream Performed By: #### A DDONUAPLUS, UHCG, CUU ####[address] [address] [place] Urobilinogen,Urine Normal Normal Normal [facility] Comment on above: Order Comment: Name Collection Type:: Clean-Voided Midstream Performed By: #### A MANASLAVINIAKATHLEEN, [facility], CUU ####[place] [id number] [place] [id number] [place] WBC,Urine 10-19 High 0-4 [facility] Comment on above: Order Comment: Name Collection Type:: Clean-Voided Midstream Performed By: #### A MANASHARSHA, CHENCHOG, CUU ####[place] [id number] [place] Discharge Instructionson Discharge Instructions [id number]#[id number]:1 27 Normal [facility] Drug Screen,Urineon 12-06-19 23 Amphetamine Screen,Urine Negative Normal Negative [facility] Comment on above: Performed By: #### U RDS ####[address] Barbiturate Screen,Urine Negative Normal Negative [facility] Comment on above: Performed By: #### U RDS ####[place] [id number] [place] Benzodiazepines Screen,Urine Negative Normal Negative [facility] Comment on above: Performed By: #### U RDS ####[address] Cannabinoid Screen,Urine Negative Normal Negative [facility] Comment on above: Result Comment: Thes e are unconfirmed results and should not be used for legal purposes. Drug Cut-Off Concentration: AMPH 1000 ng/mL SONIA 200 ng/mL JEREMY 200 ng/mL COCM 300 ng/mL OP 300 ng/mL PCP 25 ng/mL THC 20 ng/mLPERFORMED BY:[address] [place], [place] [phone] MEDICAL RONAN MIKE M.D. Performed By: #### U RDS ####[place] [id number] [place] Cocaine Screen,Urine Negative Normal Negative [facility] Comment on above: Performed By: #### U RDS ####[facility] [place] [phone] [place] Opiate Screen,Urine Negative Normal Negative [facility] Comment on above: Performed By: #### U RDS ####[facility] [place] [phone] [place] Phencyclidine Screen,Urine Negative Normal Negative [facility] Comment on above: Performed By: #### U RDS ####[facility] [place] [phone] [place] HCG ( test) IA.rapi d Ql (U)Ordered By: PROVIDER TEMP on 12-05-2022 HCG ( test) Ql (U) Negative [facility] HCG,Urineon 12-05-2022 Beta HCG ( test) Ql (U) Negative Normal [facility] Comment on above: Order Comment: Name Collection Type:: Clean-Voided Midstream Result Comment: PERF ORMED BY:[address] [place], [place] [phone] MEDICAL DIRECTORNATALIA MIKE M.D. Performed By: #### A DDONUAKATHLEEN, [facility], CUU ####[facility] [place] [phone] [place] Ketones Auto test strip (U) [Mass/Vol]Ordered By: Damian Carpenter on 12-05-2022 Ketones (U) [Mass/Vol] Negative Negative [facility] - UrinalysisOrder ed By: Damian Carpenter on 12-05-2022 Hyaline casts LM Ql (Urine sed) None seen [LPF] 0-8 [facility] Nitrite Test strip Ql (U)Ord ered By: Damian Carpenter on 12-05-2022 Nitrite Ql (U) Negative Negative [facility] No Panel InformationOrdered By: Damian Carpenter on 12-05-2022 None seen [LPF] 0-8 [facility] Opiates [Presence] in Urine by Screen methodOrdered By: Damian Carpenter on 12-05-2022 Opiates Screen Ql (U) Negative Negative [facility] Phencyclidine Screen Ql (U)O rdered By: Damian Carpenter on 12-05-2022 Phencyclidine Ql (U) Negative Negative [facility] Protein Auto test strip (U) [Mass/Vol]Ordered By: Damian Carpenter on 12-05-2022 Protein (U) [Mass/Vol] Negative Negative [facility] Specific gravity Auto test s trip (U) [Rel density]Ordered By: Damian Carpenter on 12-05-2022 Specific gravity (U) [Rel density] 1.025 1.001-1.[address] [facility] Squamous epithelial cells de tection in urine sediment by light microscopyOrdered By: Damian Carpenter on 12-05-2022 Epithelial cells.squamous LM Ql (Urine sed) 5-9 [HPF] 0-2 [facility] Urine Cultureon 12-05-2022 Bacteria identified Cx Nom (U) Normal [facility] Comment on above: Performed By: #### A DDONUAPLUS, CG, CUU ####[facility] [address] Urine bacteria detection by automated methodOrdered By: Damian Carpenter on 12-05-2022 Bacteria Auto Ql (U) None seen None Seen [facility] Urine clarity by refractomet ry automatedOrdered By: Damian Carpenter on 12-05-2022 Clarity Refractometry automated (U) Cloudy Clear [facility] Urine culture routineOrdered By: Damian Carpenter on 12-05-2022 Bacteria identified Cx Nom (U) [address] [facility] Urine glucose measurement by automated test strip (mass/volume)Ordered By: Damian Carpenter on 12-05-2022 Glucose Auto test strip (U) [Mass/Vol] 250 mg/dL Normal [facility] Urine hemoglobin detection b y automated test stripOrdered By: Damian Carpenter on 12-05-2022 Hemoglobin Auto test strip Ql (U) 3+ Negative [facility] Urine leukocyte esterase det ection by automated test stripOrdered By: Damian Carpenter on 12-05-2022 Leukocyte esterase Auto test strip Ql (U) 2+ Negative [facility] Urobilinogen Auto test strip (U) [Mass/Vol]Ordered By: Damian Carpenter on 12-05-2022 Urobilinogen (U) [Mass/Vol] Normal mg/dL Normal [facility] pH Auto test strip (U)Ordere d By: Damian Carpenter on 12-05-2022 pH (U) 5.5 [pH] 5.0-9.0 [facility] Auto Diffon 12-04-2022 Basophils/100 WBC (Bld) 1.0 % Normal 0.0-2.0 [facility] Comment on above: Order Comment: Order Added by Discern Expert. Performed By: #### 2 723652, 51394176, 9350229, 7442540, 5500278 ####[address] [address] Basophils/Leukocytes Auto (Bld) [Pure # fraction] 0.1 E9/L Normal 0.0-0.2 [facility] Comment on above: Order Comment: Order Added by Discern Expert. Performed By: #### 2 602747, 54856223, 1277260, 5601223, 9971598 ####[address] [address] Eosinophils/100 WBC (Bld) 3.3 % Normal 0.0-8.0 [facility] Comment on above: Order Comment: Order Added by Discern Expert. Performed By: #### 2 474520, 85120845, 0258385, 2291459, 7153666 ####[address] [address] Eosinophils/Leukocytes Auto (Bld) [Pure # fraction] 0.2 E9/L Normal 0.0-0.5 [facility] Comment on above: Order Comment: Order Added by Discern Expert. Performed By: #### 2 070829, 20548760, 3732204, 5363228, 3775988 ####[address] [address] Lymphocytes/100 WBC (Bld) 28.3 % Normal 14.0-50.0 [facility] Comment on above: Order Comment: Order Added by Discern Expert. Performed By: #### 2 777401, 31451072, 3059309, 9346911, 4422384 ####[facility] [address] [place] [address] Lymphocytes/Leukocytes Auto (Bld) [Pure # fraction] 2.1 E9/L Normal 1.0-4.0 [facility] Comment on above: Order Comment: Order Added by Discern Expert. Performed By: #### 2 274380, 55652902, 9526284, 7644534, 3987103 ####[place] [address] [place] [address] Monocytes/100 WBC (Bld) 6.0 % Normal 4.0-14.0 [facility] Comment on above: Order Comment: Order Added by Discern Expert. Performed By: #### 2 179424, 02059729, 6316371, 1307279, 9219377 ####[address] [address] Monocytes/Leukocytes Auto (Bld) [Pure # fraction] 0.4 E9/L Normal 0.2-1.0 [facility] Comment on above: Order Comment: Order Added by Discern Expert. Performed By: #### 2 376191, 56741481, 1722791, 5254450, 1763419 ####[address] [address] Neutrophils/100 WBC (Bld) 61.4 % Normal 36.0-75.0 [facility] Comment on above: Order Comment: Order Added by Discern Expert. Performed By: #### 2 800331, 36903083, 2416724, 5761671, 0168346 ####[place] [address] [place] [address] Neutrophils/Leukocytes Auto (Bld) [Pure # fraction] 4.6 E9/L Normal 2.0-7.5 [facility] Comment on above: Order Comment: Order Added by Discern Expert. Performed By: #### 2 670031, 15724016, 1575456, 7941527, 3138610 ####[place] [address] [place] [address] BMPon 12-04-2022 Creatinine [Mass/Vol] 0.7 mg/dL Normal 0.5-1.3 [facility] Comment on above: Order Comment: pt ge tting an iv [id number] 12/04/2022 16:56:35 EDT Performed By: #### 2 170578, 06095551, 0520792, 0822811, 9315977 ####[facility] [address] [place] [address] Urea nitrogen [Mass/Vol] 15 mg/dL Normal 5-21 [facility] Comment on above: Order Comment: pt ge tting an iv [id number] 12/04/2022 16:56:35 EDT Performed By: #### 2 873072, 16840312, 2440177, 0546668, 1499504 ####[facility] [address] [place] [address] Urea nitrogen/Creatinine [Mass ratio] 21 No Units High 10-20 [facility] Comment on above: Order Comment: pt ge tting an iv [id number] 12/04/2022 16:56:35 EDT Performed By: #### 2 806948, 78814853, 2087586, 6617610, 5766715 ####[facility] [address] [place] [address] Anion gap [Moles/Vol] 14 mmol/L Normal 6-16 [facility] Comment on above: Order Comment: pt ge tting an iv [id number] 12/04/2022 16:56:35 EDT Performed By: #### 2 988245, 85215740, 9573599, 1412721, 4845388 ####[facility] [address] [place] [address] Calcium [Mass/Vol] 9.9 mg/dL Normal 8.9-11.1 [facility] Comment on above: Order Comment: pt ge tting an iv [id number] 12/04/2022 16:56:35 EDT Performed By: #### 2 366097, 24888111, 2339396, 0634856, 7239109 ####[facility] [address] [place] [address] Chloride [Moles/Vol] 103 mmol/L Normal 101-111 [facility] Comment on above: Order Comment: pt ge tting an iv [id number] 12/04/2022 16:56:35 EDT Performed By: #### 2 825213, 70526439, 6690422, 9645129, 8433466 ####[facility] [address] [place] [address] CO2 [Moles/Vol] 26 mmol/L Normal 21-31 [facility] Comment on above: Order Comment: pt ge tting an iv [id number] 12/04/2022 16:56:35 EDT Performed By: #### 2 985414, 37086222, 7642340, 1477054, 6328326 ####[facility] [address] [place] [address] Glucose [Mass/Vol] 180 mg/dL Normal 55-199 [facility] Comment on above: Order Comment: pt ge tting an iv [id number] 12/04/2022 16:56:35 EDT Result Comment: If t his glucose result represents a fasting glucose, interpretation should refer to the following reference range: 55-99 mg/dL Performed By: #### 2 020881, 55668809, 3330910, 5862622, 8979231 ####[facility] [address] [place] [address] Potassium [Moles/Vol] 3.6 mmol/L Normal 3.5-5.3 [facility] Comment on above: Order Comment: pt ge tting an iv [id number] 12/04/2022 16:56:35 EDT Performed By: #### 2 806232, 41706330, 8872362, 7054431, 7583056 ####[facility] [address] [place] [address] Sodium [Moles/Vol] 139 mmol/L Normal 135-145 [facility] Comment on above: Order Comment: pt ge tting an iv [id number] 12/04/2022 16:56:35 EDT Performed By: #### 2 900572, 35011511, 7110399, 9550370, 6735852 ####[address] [address] CBC w/ Auto Diffon 3 Erythrocyte distribution width (RBC) [Ratio] 12.8 % Normal 10.9-14.2 [facility] Comment on above: Performed By: #### 2 662825, 58109465, 1210585, 2379827, 2498835 ####[address] [address] Hematocrit (Bld) [Volume fraction] 40.5 % Normal 34.0-46.0 [facility] Comment on above: Performed By: #### 2 312776, 26241099, 9320740, 6171900, 6482929 ####[address] [address] Hemoglobin (Bld) [Mass/Vol] 13.9 g/dL Normal 12.0-16.0 [facility] Comment on above: Performed By: #### 2 644908, 27268820, 8902309, 4772000, 1291265 ####[address] [address] MCH (RBC) [Entitic mass] 29.5 pg Normal 27.0-34.0 [facility] Comment on above: Performed By: #### 2 146857, 30563272, 2396009, 2096246, 9695238 ####[address] [address] MCHC (RBC) [Mass/Vol] 34.2 g/dL Normal 31.4-36.0 [facility] Comment on above: Performed By: #### 2 766575, 44385089, 0829295, 3179110, 3364417 ####[address] [address] MCV (RBC) [Entitic vol] 86.2 fL Normal 80.0-100.0 [facility] Comment on above: Performed By: #### 2 744687, 15081356, 4006412, 9837973, 0081767 ####[facility] [address] [place] [address] Platelet mean volume (Bld) [Entitic vol] 7.3 fL Normal 6.4-10.8 [facility] Comment on above: Performed By: #### 2 680175, 85375362, 9827358, 7094637, 0080013 ####[facility] [address] [place] [address] Platelets (Bld) [#/Vol] 210.0 E9/L Normal 150.0-500. 0 [facility] Comment on above: Performed By: #### 2 817806, 66645160, 6977932, 1178571, 3921869 ####[address] [address] RBC (Bld) [#/Vol] 4.7 E12/L Normal 4.3-5.9 [facility] Comment on above: Performed By: #### 2 410958, 77370926, 5910540, 1954995, 5200288 ####[address] [address] WBC corrected for nucl RBC Auto (Bld) [#/Vol] 7.5 E9/L Normal 4.0-11.0 [facility] Comment on above: Performed By: #### 2 663529, 19214044, 7847663, 2257392, 8307841 ####[address] [address] Consent for Treatmenton Consent for Treatment [id number]:12 7 Normal [facility] ED Clinical Summaryon 2022 ED Clinical Summary Normal [facility] ED Note-Physicianon 12-05-19 ED Note-Physician Normal [facility] Comment on above: Result Comment: Elec tronically Signed By: Shantell Rondon, Agatha Granger\Date and Time Signed: 12/04/22 18:53 EDT ED Patient Education Noteon 12-04-2022 ED Patient Education Note Normal [facility] ED Patient Summaryon 023 ED Patient Summary Normal [facility] Hep Func Panelon 12-04-2022 Bilirubin.indirect [Mass or moles/Vol] UTC Abnormal 0.1-0.9 [facility] Comment on above: Result Comment: Resu lt verified by Discern Rule. Performed result UTC (Unable to Calculate) was sent as an Alpha code due the inability to calculate a valid numeric value. Performed By: #### 2 554237, 15583024, 0227609, 7242909, 0384133 ####[facility] [address] [place] [address] Albumin [Mass/Vol] 4.2 g/dL Normal 3.3-5.0 [facility] Comment on above: Performed By: #### 2 304039, 51655884, 4619224, 1766258, 1261083 ####[facility] [address] [place] [address] Albumin/Globulin (S) [Mass conc ratio] 1.2 Normal 1.1-2.2 [facility] Comment on above: Performed By: #### 2 207260, 36652162, 4482020, 4173637, 1448041 ####[facility] [address] [place] [address] ALP [Catalytic activity/Vol] 71 Int._Unit/L Normal 21-98 [facility] Comment on above: Performed By: #### 2 033849, 97390837, 2329498, 9338675, 4656532 ####[facility] [address] [place] [address] ALT No additional P-5'-P [Catalytic activity/Vol] 17 Int._Unit/L Normal 6-46 [facility] Comment on above: Performed By: #### 2 931634, 96459659, 3506837, 6189789, 0616878 ####[facility] [address] [place] [address] AST [Catalytic activity/Vol] 20 Int._Unit/L Normal 5-43 [facility] Comment on above: Performed By: #### 2 307113, 12353539, 6498973, 1849768, 4892388 ####[facility] [address] [place] [address] Bilirubin [Mass/Vol] 0.5 mg/dL Normal 0.0-1.1 [facility] Comment on above: Performed By: #### 2 165178, 98996340, 5187585, 4048957, 3389755 ####[facility] [address] [place] [address] Globulin (S) [Mass/Vol] 3.5 g/dL Normal 1.4-4.0 [facility] Comment on above: Performed By: #### 2 027498, 91282587, 2610956, 7904136, 9952324 ####[facility] [address] [place] [address] Protein [Mass/Vol] 7.7 g/dL Normal 6.0-7.8 [facility] Comment on above: Performed By: #### 2 516571, 37391754, 5479507, 0918180, 9174756 ####[facility] [address] [place] [address] Bilirubin.direct [Mass/Vol] mg/dL Normal 0.1-0.4 [facility] Comment on above: Performed By: #### 2 895753, 81254055, 1923697, 2305472, 0462894 ####[facility] [address] [place] [address] UA With Cult Reflexon 2022 Bacteria LM Ql (Urine sed) TRACE Normal Trace [facility] Comment on above: Performed By: #### 2 228705, 98138744 ####[facility] [address] [place] [address] Bilirubin Ql (U) Negative Normal Negative [facility] Comment on above: Performed By: #### 2 063412, 07616705 ####[facility] [address] [place] [address] Clarity (U) CLOUDY Abnormal Clear [facility] Comment on above: Performed By: #### 2 728322, 98602030 ####[facility] [address] [place] [address] Color (U) RED Abnormal Yellow [facility] Comment on above: Performed By: #### 2 923985, 19419449 ####[facility] [address] [place] [address] Epithelial cells.squamous LM.HPF (Urine sed) [#/Area] 3-4 Normal 0-2 [facility] Comment on above: Performed By: #### 2 543300, 92403806 ####[facility] [address] [place] [address] Glucose Test strip (U) [Mass/Vol] Negative Normal Negative [facility] Comment on above: Performed By: #### 2 277638, 73460751 ####[facility] [address] [place] [address] Hemoglobin Ql (U) 3+ Abnormal Negative [facility] Comment on above: Performed By: #### 2 598130, 22511600 ####[facility] [address] [place] [address] Ketones (U) [Mass/Vol] Negative Normal Negative [facility] Comment on above: Performed By: #### 2 193991, 01448437 ####[facility] [address] [place] [address] [place].plasma/[place] .RBC (Bld) [Mass ratio] >75 Abnormal 0-3 [facility] Comment on above: Performed By: #### 2 899989, 30469881 ####[facility] [address] [place] [address] Nitrite Ql (U) Negative Normal Negative [facility] Comment on above: Performed By: #### 2 340866, 65796896 ####[facility] [address] [place] [address] pH (U) 6.0 [pH] Invalid Interpretation Code 5.0-9.0 [facility] Comment on above: Performed By: #### 2 955301, 45948004 ####[facility] [address] [place] [address] Protein (U) [Mass/Vol] Negative Normal Negative [facility] Comment on above: Performed By: #### 2 514412, 59949312 ####[address] [address] Specific gravity (U) [Rel density] <=1.005 Invalid Interpretation Code 1.005-1.03 0 [facility] Comment on above: Performed By: #### 2 853562, 75285010 ####[address] [address] Type of Urine collection method Clean Catch Normal [facility] Comment on above: Performed By: #### 2 258042, 21013598 ####[facility] [address] [place] [address] Urobilinogen Qn (U) 0.2 {Diaz'U}/dL Normal 0.0-1.0 [facility] Comment on above: Performed By: #### 2 474934, 74212331 ####[facility] [address] [place] [address] WBC Auto Ql (U) 1+ Abnormal Negative [facility] Comment on above: Performed By: #### 2 [id number], [id number] ####[address] [address] WBC LM.HPF (Urine sed) [#/Area] 0-5 Normal 0-5 [facility] Comment on above: Performed By: #### 2 [id number], [id number] ####[facility] [address] [place] [address] [place] Renalon 12-04-2022 US Renal Normal [facility] eGFRon 12-04-2022 GFR/1.73 sq M.predicted among non-blacks MDRD (S/P/Bld) [Vol rate/Area] 107 mL/min/1.73 m2 Normal >=59 [facility] Comment on above: Order Comment: Order added by Discern Expert. Result Comment: Travel Services Professional aiyana kidney disease could be indicated at eGFR's of less than 60 mL/min/1.73m2. Kidney failure is indicated at less than 15 mL/min/1.73m2. Performed By: #### 2 [id number], [id number], [id number], [id number], [id number] ####[facility] [address] [place] [address] Complete Blood Count Auto Di ffon 11-28-2022 Basophils (Bld) [#/Vol] 0.1 10*3/uL Normal 0.0-0.2 [facility] Comment on above: Result Comment: PERF ORMED BY:[address] [place], [place] [id number] MEDICAL DIRECTORNATALIA MIKE M.D. Performed By: #### C BC, CMP ####[address] [address] [place] Basophils/100 WBC (Bld) 0.9 % Normal . [facility] Comment on above: Performed By: #### C BC, CMP ####[address] [address] [place] Eosinophils (Bld) [#/Vol] 0.3 10*3/uL Normal 0.0-0.45 [facility] Comment on above: Performed By: #### C BC, CMP ####[address] [address] [place] Eosinophils/100 WBC (Bld) 2.8 % Normal . [facility] Comment on above: Performed By: #### C BC, CMP ####[place] [id number] [place] Erythrocyte distribution width (RBC) [Ratio] 12.7 % Normal 11.9-15.3 [facility] Comment on above: Performed By: #### C SHANIA, CMP ####[address] [address] [place] Hematocrit (Bld) [Volume fraction] 41.6 % Normal 34.0-46.4 [facility] Comment on above: Performed By: #### C BC, CMP ####[address] [address] [place] Hemoglobin (Bld) [Mass/Vol] 14.5 g/dL Normal 11.8-15.4 [facility] Comment on above: Performed By: #### C SHANIA, CMP ####[place] [id number] [place] Lymphocytes (Bld) [#/Vol] 3.2 10*3/uL Normal 1.00-4.8 [facility] Comment on above: Performed By: #### C SHANIA, CMP ####[place] [id number] [place] Lymphocytes/100 WBC (Bld) 31.5 % Normal . [facility] Comment on above: Performed By: #### C SHANIA, CMP ####[place] [id number] [place] MCH (RBC) [Entitic mass] 30.1 pg Normal 24.7-34.3 [facility] Comment on above: Performed By: #### C SHANIA, CMP ####[place] [id number] [place] MCV (RBC) [Entitic vol] 86.1 fL Normal 80-100 [facility] Comment on above: Performed By: #### C SHNAIA, CMP ####[place] [id number] [place] Mean Corpuscular HGB Conc 35.0 g/dL Normal 32.0-35.0 [facility] Comment on above: Performed By: #### C BC, CMP ####[place] [id number] [place] Monocytes (Bld) [#/Vol] 0.7 10*3/uL Normal 0.0-0.8 [facility] Comment on above: Performed By: #### C SHANIA, CMP ####[place] [address] [place] [address] [place] Monocytes/100 WBC (Bld) 18.21 % Normal 0.00-20.00 [facility] Comment on above: Performed By: #### C SHANIA, CMP ####[facility] [place] [address] [place] Monocytes/100 WBC (Bld) 7.2 % Normal . [facility] Comment on above: Performed By: #### C SHANIA, CMP ####[place] [address] [place] [address] [place] Neutrophils (Bld) [#/Vol] 5.9 10*3/uL Normal 1.8-7.7 [facility] Comment on above: Performed By: #### C SHANIA, CMP ####[place] [address] [place] [address] [place] Neutrophils/100 WBC (Bld) 57.6 % Normal . [facility] Comment on above: Performed By: #### C SHANIA, CMP ####[place] [address] [place] [address] [place] NRBC% 0.1 /100{WBC} Normal 0-0.5 [facility] Comment on above: Performed By: #### C SHANIA, CMP ####[place] [address] [place] [address] [place] Platelet mean volume (Bld) [Entitic vol] 7.3 fL Normal 6.3-10.7 [facility] Comment on above: Performed By: #### C SHANIA, CMP ####[place] [address] [place] [address] [place] Platelets (Bld) [#/Vol] 235 10*3/uL Normal 150-450 [facility] Comment on above: Performed By: #### C SHANIA, CMP ####[place] [address] [place] [address] [place] RBC (Bld) [#/Vol] 4.83 10*6/uL Normal 3.60-5.00 [facility] Comment on above: Performed By: #### C BC, CMP ####[place] [address] [place] [address] [place] WBC (Bld) [#/Vol] 10.2 10*3/uL Normal 3.8-11.6 [facility] Comment on above: Performed By: #### C BC, CMP ####[address] [address] [place] Comprehensive Metabolic Pane ben 11-28-2022 Albumin [Mass/Vol] 4.6 g/dL Normal 3.5-5.7 [facility] Comment on above: Performed By: #### C SHANIA, CMP ####[address] [address] [place] Albumin/Globulin [Mass ratio] 1.2 {ratio} Normal [facility] Comment on above: Performed By: #### C SHANIA, CMP ####[address] [address] [place] ALP [Catalytic activity/Vol] 73 U/L Normal 34-104 [facility] Comment on above: Performed By: #### C SHANIA, CMP ####[address] [address] [place] ALT [Catalytic activity/Vol] 12 U/L Normal 7-52 [facility] Comment on above: Performed By: #### C SHANIA, CMP ####[address] [address] [place] Anion gap [Moles/Vol] 12.9 mmol/L Normal 6.0-15.0 [facility] Comment on above: Performed By: #### C BC, CMP ####[address] [address] [place] AST [Catalytic activity/Vol] 13 U/L Normal 13-39 [facility] Comment on above: Performed By: #### C BC, CMP ####[address] [address] [place] Bilirubin [Mass/Vol] 0.3 mg/dL Normal 0.3-1.0 [facility] Comment on above: Performed By: #### C BC, CMP ####[place] [address] [place] [address] [place] Calcium [Mass/Vol] 9.6 mg/dL Normal 8.6-10.3 [facility] Comment on above: Performed By: #### C BC, CMP ####[place] [address] [place] [address] [place] Chloride [Moles/Vol] 102 mmol/L Normal 98-107 [facility] Comment on above: Performed By: #### C BC, CMP ####[place] [address] [place] [address] [place] CO2 [Moles/Vol] 28.6 mmol/L Normal 21.0-31.0 [facility] Comment on above: Performed By: #### C BC, CMP ####[place] [address] [place] [address] [place] Creatinine [Mass/Vol] 0.69 mg/dL Normal 0.60-1.20 [facility] Comment on above: Performed By: #### C BC, CMP ####[place] [address] [place] [address] [place] Creatinine Clr Calc Pharmacy 136.14 [facility] Comment on above: Result Comment: PERF ORMED BY:[address] [place] [id number] MEDICAL RONAN MIKE M.D. Performed By: #### C BC, CMP ####[place] [address] [place] [address] [place] GFR/1.73 sq M.predicted MDRD (S/P/Bld) [Vol rate/Area] mL/min/{1.73_m2} [facility] Comment on above: Performed By: #### C BC, CMP ####[facility] [place] [address] [place] Globulin (S) [Mass/Vol] 3.7 g/dL [facility] Comment on above: Performed By: #### C BC, CMP ####[facility] [place] [address] [place] Glucose [Mass/Vol] 100 mg/dL Normal 70-100 [facility] Comment on above: Result Comment: [facility] Glucose Reference Range is dependent on time and content of last meal. Glucose of more than 200 mg/dL in a nonstressed, ambulatory subject supports the diagnosis of Diabetes Mellitus. ADA recommended reference range Performed By: #### C BC, CMP ####[place] [address] [place] [address] [place] Potassium [Moles/Vol] 3.5 mmol/L Normal 3.5-5.1 [facility] Comment on above: Performed By: #### C BC, CMP ####[place] [address] [place] [id number] [place] Protein [Mass/Vol] 8.3 g/dL Normal 6.4-8.9 [facility] Comment on above: Performed By: #### C BC, CMP ####[place] [id number] [place] Sodium [Moles/Vol] 140 mmol/L Normal 136-145 [facility] Comment on above: Performed By: #### C BC, CMP ####[place] [address] [place] [id number] [place] Urea nitrogen [Mass/Vol] 19 mg/dL Normal 7-25 [facility] Comment on above: Performed By: #### C SHANIA, CMP ####[address] [address] [place] XR KUBon 11-28-[address] [facility] Alanine aminotransferase [En zymatic activity/volume] in Serum or PlasmaOrdered By: Joseluis Vega on 11-27-2022 ALT [Catalytic activity/Vol] 12 U/L 7-52 [facility] Albumin [Mass/volume] in Ser um or Plasma by Bromocresol green (BCG) dye binding methoOrdered By: Joseluis Vega on 11-27-2022 Albumin BCG dye [Mass/Vol] 4.6 g/dL 3.5-5.7 [facility] Alkaline phosphatase [Enzyma tic activity/volume] in Serum or PlasmaOrdered By: Joseluis Vega on 11-27-2022 ALP [Catalytic activity/Vol] 73 U/L 34-104 [facility] Aspartate aminotransferase [ Enzymatic activity/volume] in Serum or PlasmaOrdered By: Joseluis Vega on 11-27-2022 AST [Catalytic activity/Vol] 13 U/L 13-39 [facility] Automated erythrocytes count in urine sediment (number/area)Ordered By: Joseluis Vega on 11-27-2022 RBC Auto (Urine sed) [#/Area] Innumerable [HPF] 0-4 [facility] Automated leukocytes count i n urine sediment (number/area)Ordered By: Joseluis Veag on 11-27-2022 WBC Auto (Urine sed) [#/Area] 10-19 [HPF] 0-4 [facility] Basophils Auto (Bld) [#/Vol] Ordered By: Joseluis Vega on 11-27-2022 Basophils (Bld) [#/Vol] 0.1 10*3/uL 0.0-0.2 [facility] Basophils/100 WBC Auto (Bld) Ordered By: Joseluis Vega on 11-27-2022 Basophils/100 WBC (Bld) 0.9 % . [facility] Bilirubin Test strip Ql (U)O rdered By: Joseluis Vega on 11-27-2022 Bilirubin Ql (U) Negative Negative [facility] Bilirubin.total [Mass/volume ] in Serum or PlasmaOrdered By: Joseluis Vega on 11-27-2022 Bilirubin [Mass/Vol] 0.3 mg/dL 0.3-1.0 [facility] Calcium [Mass/volume] in Ser um or PlasmaOrdered By: Joseluis Vega on 11-27-2022 Calcium [Mass/Vol] 9.6 mg/dL 8.6-10.3 [facility] Carbon dioxide, total [Moles /volume] in Serum or PlasmaOrdered By: Joseluis Vega on 11-27-2022 CO2 [Moles/Vol] 28.6 mmol/L 21.0-31.0 [facility] Chloride [Moles/volume] in S jaron or PlasmaOrdered By: Joseluis Vega on 11-27-2022 Chloride [Moles/Vol] 102 mmol/L 98-107 [facility] Color Auto (U)Ordered By: Monika Vega on 11-27-2022 Color (U) [place] Yellow [facility] Creatinine [Mass/volume] in Serum or PlasmaOrdered By: Joseluis Vega on 11-27-2022 Creatinine [Mass/Vol] 0.69 mg/dL 0.60-1.20 [facility] Dipstick and Microscopicon 0 11-27-2022 Appearance (U) Cloudy Critically abnormal Clear [facility] Comment on above: Order Comment: Name Collection Type:: Clean-Voided Midstream Performed By: #### A DDONUAPLUS, CUU, UHCG ####[place] [address] [place] [id number] [place] Bacteria,Urine None Seen Normal None Seen [facility] Comment on above: Order Comment: Name Collection Type:: Clean-Voided Midstream Performed By: #### A DDONUAPLUS, CUU, UHCG ####[address] [address] [place] [address] [place] Bilirubin,Urine Negative Normal Negative [facility] Comment on above: Order Comment: Name Collection Type:: Clean-Voided Midstream Performed By: #### A DDONUAPLUS, CUU, UHCG ####[place] [address] [place] [address] [place] Color (U) [place] Critically abnormal Yellow [facility] Comment on above: Order Comment: Name Collection Type:: Clean-Voided Midstream Performed By: #### A DDONUAPLUS, CUU, UHCG ####[place] [address] [place] [address] [place] Glucose Ql (U) >=[address] [facility] Comment on above: Order Comment: Name Collection Type:: Clean-Voided Midstream Performed By: #### A DDONUAPLUS, CUU, UHCG ####[place] [id number] [place] Hyaline Casts,Urine 0-8 Normal 0-8 [facility] Comment on above: Order Comment: Name Collection Type:: Clean-Voided Midstream Performed By: #### A DDONUAPLUS, CUU, UHCG ####[place] [id number] [place] Ketones Ql (U) Trace High Negative [facility] Comment on above: Order Comment: Name Collection Type:: Clean-Voided Midstream Performed By: #### A DDONUAPLUS, CUU, UHCG ####[place] [id number] [place] Leukocyte esterase Test strip Ql (U) 2+ High Negative [facility] Comment on above: Order Comment: Name Collection Type:: Clean-Voided Midstream Performed By: #### A DDONUAPLUS, CUU, UHCG ####[address] Nitrite,Urine Negative Normal Negative [facility] Comment on above: Order Comment: Name Collection Type:: Clean-Voided Midstream Performed By: #### A DDONUAPLUS, CUU, UHCG ####[place] [id number] [place] Occult Blood,Urine 3+ High Negative [facility] Comment on above: Order Comment: Name Collection Type:: Clean-Voided Midstream Performed By: #### A DDONUAPLUS, CUU, UHCG ####[place] [id number] [place] pH (U) 6.0 [pH] Normal 5.0-9.0 [facility] Comment on above: Order Comment: Name Collection Type:: Clean-Voided Midstream Performed By: #### A DDONUAPLUS, CUU, UHCG ####[place] [id number] [place] Protein,Urine Trace High Negative [facility] Comment on above: Order Comment: Name Collection Type:: Clean-Voided Midstream Performed By: #### A DDONUAPLUS, CUU, UHCG ####[address] [place] [address] [place] RBC,Urine Innumerable High 0-4 [facility] Comment on above: Order Comment: Name Collection Type:: Clean-Voided Midstream Performed By: #### A DDONUAPLUS, CUU, UHCG ####[address] Specificy [place],Urine 1.027 Normal 1.001-1.[address] [facility] Comment on above: Order Comment: Name Collection Type:: Clean-Voided Midstream Performed By: #### A DDONUAPLUS, CUU, UHCG ####[address] Squamous Epithelial Cell,Urine 3-4 High 0-2 [facility] Comment on above: Order Comment: Name Collection Type:: Clean-Voided Midstream Performed By: #### A DDONUAPLUS, CUU, UHCG ####[address] Urobilinogen,Urine Normal Normal Normal [facility] Comment on above: Order Comment: Name Collection Type:: Clean-Voided Midstream Performed By: #### A DDONUAPLUS, CUU, UHCG ####[place] [id number] [place] WBC,Urine 10-19 High 0-4 [facility] Comment on above: Order Comment: Name Collection Type:: Clean-Voided Midstream Performed By: #### A DDONUAPLUS, CUU, CG ####[address] Eosinophils Auto (Bld) [#/Vo l]Ordered By: Joseluis Vega on 11-27-2022 Eosinophils (Bld) [#/Vol] 0.3 10*3/uL 0.0-0.45 [facility] Eosinophils/100 WBC Auto (Bl d)Ordered By: Joseluis Vega on 11-27-2022 Eosinophils/100 WBC (Bld) 2.8 % . [facility] Erythrocyte distribution wid th Auto (RBC) [Ratio]Ordered By: Joseluis Vega on 11-27-2022 Erythrocyte distribution width (RBC) [Ratio] 12.7 % 11.9-15.3 [facility] Globulin Calc (S) [Mass/Vol] Ordered By: Joseluis Vega on 11-27-2022 Globulin (S) [Mass/Vol] 3.7 g/dL [facility] Glucose [Mass/volume] in Ser um or PlasmaOrdered By: Joseluis Vega on 11-27-2022 Glucose [Mass/Vol] 100 mg/dL 70-100 [facility] Comment on above: ADA recommended refe rence rangeRandom Glucose Reference Range is dependent on time and content of last meal. Glucose of more than 200 mg/dL in a nonstressed, ambulatory subject supports the diagnosis of Diabetes Mellitus. HCG ( test) IA.rapi d Ql (U)Ordered By: Joseluis Vega on 11-27-2022 HCG ( test) Ql (U) Negative [facility] HCG,Urineon 11-27-2022 Beta HCG ( test) Ql (U) Negative Normal [facility] Comment on above: Order Comment: Name Collection Type:: Clean-Voided Midstream Result Comment: PERF ORMED BY:[address] [place], [place] [id number] MEDICAL DIRECTORNATALIA MIKE M.D. Performed By: #### A DDANGEL CARTY, UH ####[facility] [place] [address] [place] Hematocrit Auto (Bld) [Volum e fraction]Ordered By: Joseluis Vega on 11-27-2022 Hematocrit (Bld) [Volume fraction] 41.6 % 34.0-46.4 [facility] Hemoglobin [Mass/volume] in BloodOrdered By: Joseluis Vega on 11-27-2022 Hemoglobin (Bld) [Mass/Vol] 14.5 g/dL 11.8-15.4 [facility] Ketones Auto test strip (U) [Mass/Vol]Ordered By: Joseluis Vega on 11-27-2022 Ketones (U) [Mass/Vol] Trace Negative [facility] - UrinalysisOrder ed By: Joseluis Vega on 11-27-2022 Hyaline casts LM Ql (Urine sed) 0-8 [LPF] 0-8 [facility] Leukocytes [#/volume] correc suzanne for nucleated erythrocytes in Blood by Automated counOrdered By: Joseluis Vega on 11-27-2022 WBC corrected for nucl RBC Auto (Bld) [#/Vol] 10.2 10*3/uL 3.8-11.6 [facility] Lymphocytes Auto (Bld) [#/Vo l]Ordered By: Joseluis Vega on 11-27-2022 Lymphocytes (Bld) [#/Vol] 3.2 10*3/uL 1.00-4.8 [facility] Lymphocytes/100 WBC Auto (Bl d)Ordered By: Joseluis Vega on 11-27-2022 Lymphocytes/100 WBC (Bld) 31.5 % . [facility] MCH Auto (RBC) [Entitic mass ]Ordered By: Joseluis Vega on 11-27-2022 MCH (RBC) [Entitic mass] 30.1 pg 24.7-34.3 [facility] MCHC Auto (RBC) [Mass/Vol]Or dered By: Joseulis Vega on 11-27-2022 MCHC (RBC) [Mass/Vol] 35.0 g/dL 32.0-35.0 [facility] MCV Auto (RBC) [Entitic vol] Ordered By: Joseluis Vega on 11-27-2022 MCV (RBC) [Entitic vol] 86.1 fL 80-100 [facility] Monocyte distribution width [Entitic volume] in Blood by AutomatedOrdered By: Joseluis Vega on 11-27-2022 Monocyte distribution width Auto (Bld) [Entitic vol] 18.21 % 0.00-20.00 [facility] Monocytes Auto (Bld) [#/Vol] Ordered By: Joseluis Vega on 11-27-2022 Monocytes (Bld) [#/Vol] 0.7 10*3/uL 0.0-0.8 [facility] Monocytes/100 WBC Auto (Bld) Ordered By: Joseluis Vega on 11-27-2022 Monocytes/100 WBC (Bld) 7.2 % . [facility] Neutrophils Auto (Bld) [#/Vo l]Ordered By: Joseluis Vega on 11-27-2022 Neutrophils (Bld) [#/Vol] 5.9 10*3/uL 1.8-7.7 [facility] Neutrophils/100 WBC Auto (Bl d)Ordered By: Joseluis Vega on 11-27-2022 Neutrophils/100 WBC (Bld) 57.6 % . [facility] Nitrite Test strip Ql (U)Ord ered By: Joseluis Vega on 11-27-2022 Nitrite Ql (U) Negative Negative [facility] No Panel InformationOrdered By: Joseluis Vega on 11-27-2022 Estimated GFR (CKD-EPI) > 60.0 mL/Min [facility] Creatinine Clearance (Chem 136.14 [facility] > 60.0 mL/Min [facility] 136.14 [facility] 0-8 [LPF] 0-8 [facility] Nucleated erythrocytes [Pres ence] in Blood by Automated countOrdered By: Joseluis Vega on 11-27-2022 Nucleated RBC Auto Ql (Bld) 0.1 /100{WBC} 0-0.5 [facility] Platelet mean volume Auto (B ld) [Entitic vol]Ordered By: Joseluis Vega on 11-27-2022 Platelet mean volume (Bld) [Entitic vol] 7.3 fL 6.3-10.7 [facility] Platelets Auto (Bld) [#/Vol] Ordered By: Joseluis Vega on 11-27-2022 Platelets (Bld) [#/Vol] 235 10*3/uL 150-450 [facility] Potassium [Moles/volume] in Serum or PlasmaOrdered By: Joseluis Vega on 11-27-2022 Potassium [Moles/Vol] 3.5 mmol/L 3.5-5.1 [facility] Protein Auto test strip (U) [Mass/Vol]Ordered By: Joseluis Vega on 11-27-2022 Protein (U) [Mass/Vol] Trace mg/dL Negative F [facility] Protein [Mass/volume] in Ser um or PlasmaOrdered By: Joseluis Vega on 11-27-2022 Protein [Mass/Vol] 8.3 g/dL 6.4-8.9 [facility] RBC Auto (Bld) [#/Vol]Ordere d By: Joseluis Vega on 11-27-2022 RBC (Bld) [#/Vol] 4.83 10*6/uL 3.60-5.00 [facility] Serum or plasma albumin/glob ulin mass ratioOrdered By: Joseluis Vega on 11-27-2022 Albumin/Globulin [Mass ratio] 1.2 {ratio} [facility] Serum or plasma anion gap de terminationOrdered By: Joseluis Vega on 11-27-2022 Anion gap [Moles/Vol] 12.9 mmol/L 6.0-15.0 [facility] Sodium [Moles/volume] in Ser um or PlasmaOrdered By: Joseluis Vega on 11-27-2022 Sodium [Moles/Vol] 140 mmol/L 136-145 [facility] Specific gravity Auto test s trip (U) [Rel density]Ordered By: Joseluis Vega on 11-27-2022 Specific gravity (U) [Rel density] 1.027 1.001-1.[address] [facility] Squamous epithelial cells de tection in urine sediment by light microscopyOrdered By: Joseluis Vega on 11-27-2022 Epithelial cells.squamous LM Ql (Urine sed) 3-4 [HPF] 0-2 [facility] Urea nitrogen [Mass/volume] in Serum or PlasmaOrdered By: Joseluis Vega on 11-27-2022 Urea nitrogen [Mass/Vol] 19 mg/dL 7-25 [facility] Urine Cultureon 11-27-2022 Bacteria identified Cx Nom (U) Normal [facility] Comment on above: Performed By: #### A ANGEL BERNARD UHCG ####[facility] [id number] [place] [address] [place] Urine bacteria detection by automated methodOrdered By: Joseluis Vega on 11-27-2022 Bacteria Auto Ql (U) None seen None Seen [facility] Urine clarity by refractomet ry automatedOrdered By: Joseluis Vega on 11-27-2022 Clarity Refractometry automated (U) Cloudy Clear [facility] Urine culture routineOrdered By: Joseluis Vega on 11-27-2022 Bacteria identified Cx Nom (U) [address] [facility] Urine glucose measurement by automated test strip (mass/volume)Ordered By: Joseluis Vega on 11-27-2022 Glucose Auto test strip (U) [Mass/Vol] >=1000 mg/dL Normal [facility] Urine hemoglobin detection b y automated test stripOrdered By: Joseluis Vega on 11-27-2022 Hemoglobin Auto test strip Ql (U) 3+ Negative [facility] Urine leukocyte esterase det ection by automated test stripOrdered By: Joseluis Vega on 11-27-2022 Leukocyte esterase Auto test strip Ql (U) 2+ Negative [facility] Urobilinogen Auto test strip (U) [Mass/Vol]Ordered By: Joseluis Vega on 11-27-2022 Urobilinogen (U) [Mass/Vol] Normal mg/dL Normal [facility] WBC Auto (Bld) [#/Vol]Ordere d By: Joseluis Vega on 11-27-2022 WBC (Bld) [#/Vol] 10.2 10*3/uL 3.8-11.6 [facility] pH Auto test strip (U)Ordere d By: Joseluis Vega on 11-27-2022 pH (U) 6.0 [pH] 5.0-9.0 [facility] Basic Metabolic Panelon 05-2 Anion gap [Moles/Vol] 14.3 mmol/L Normal 6.0-15.0 [facility] Comment on above: Performed By: #### L IPASE, HEPATIC, CBC, BMP ####[facility] [id number] [place] [address] [place] Calcium [Mass/Vol] 9.2 mg/dL Normal 8.6-10.3 [facility] Comment on above: Performed By: #### L IPASE, HEPATIC, CBC, BMP ####[facility] [id number] [place] [address] [place] Chloride [Moles/Vol] 102 mmol/L Normal 98-107 [facility] Comment on above: Performed By: #### L IPASE, HEPATIC, CBC, BMP ####[place] [id number] [place] CO2 [Moles/Vol] 26.6 mmol/L Normal 21.0-31.0 [facility] Comment on above: Performed By: #### L IPASE, HEPATIC, CBC, BMP ####[address] Creatinine [Mass/Vol] 0.64 mg/dL Normal 0.60-1.20 [facility] Comment on above: Performed By: #### L IPASE, HEPATIC, CBC, BMP ####[address] Creatinine Clr Calc Pharmacy 147.22 [facility] Comment on above: Performed By: #### L IPASE, HEPATIC, CBC, BMP ####[address] GFR/1.73 sq M.predicted MDRD (S/P/Bld) [Vol rate/Area] mL/min/{1.73_m2} [facility] Comment on above: Performed By: #### L IPASE, HEPATIC, CBC, BMP ####[address] Glucose [Mass/Vol] 259 mg/dL High 70-100 [facility] Comment on above: Result Comment: [place] Glucose Reference Range is dependent on time and content of last meal. Glucose of more than 200 mg/dL in a nonstressed, ambulatory subject supports the diagnosis of Diabetes Mellitus. ADA recommended reference range Performed By: #### L IPASE, HEPATIC, CBC, BMP ####[place] [id number] [place] Potassium [Moles/Vol] 3.9 mmol/L Normal 3.5-5.1 [facility] Comment on above: Performed By: #### L IPASE, HEPATIC, CBC, BMP ####[address] [place] [address] [place] Sodium [Moles/Vol] 139 mmol/L Normal 136-145 [facility] Comment on above: Performed By: #### L IPASE, HEPATIC, CBC, BMP ####[place] [id number] [place] Urea nitrogen [Mass/Vol] 15 mg/dL Normal 7-25 [facility] Comment on above: Performed By: #### L IPASE, HEPATIC, CBC, BMP ####[place] [id number] [place] Complete Blood Count Auto Di ffon 11-23-2022 Basophils (Bld) [#/Vol] 0.1 10*3/uL Normal 0.0-0.2 [facility] Comment on above: Result Comment: PERF ORMED BY:[address] [place], [place] [id number] MEDICAL DIRECTORNATALIA MIKE M.D. Performed By: #### L IPASE, HEPATIC, CBC, BMP ####[address] Basophils/100 WBC (Bld) 0.8 % Normal . [facility] Comment on above: Performed By: #### L IPASE, HEPATIC, CBC, BMP ####[address] Eosinophils (Bld) [#/Vol] 0.2 10*3/uL Normal 0.0-0.45 [facility] Comment on above: Performed By: #### L IPASE, HEPATIC, CBC, BMP ####[place] [id number] [place] Eosinophils/100 WBC (Bld) 1.9 % Normal . [facility] Comment on above: Performed By: #### L IPASE, HEPATIC, CBC, BMP ####[place] [id number] [place] Erythrocyte distribution width (RBC) [Ratio] 12.7 % Normal 11.9-15.3 [facility] Comment on above: Performed By: #### L IPASE, HEPATIC, CBC, BMP ####[address] Hematocrit (Bld) [Volume fraction] 39.5 % Normal 34.0-46.4 [facility] Comment on above: Performed By: #### L IPASE, HEPATIC, CBC, BMP ####[address] Hemoglobin (Bld) [Mass/Vol] 13.9 g/dL Normal 11.8-15.4 [facility] Comment on above: Performed By: #### L IPASE, HEPATIC, CBC, BMP ####[address] Lymphocytes (Bld) [#/Vol] 2.1 10*3/uL Normal 1.00-4.8 [facility] Comment on above: Performed By: #### L IPASE, HEPATIC, CBC, BMP ####[address] Lymphocytes/100 WBC (Bld) 20.5 % Normal . [facility] Comment on above: Performed By: #### L IPASE, HEPATIC, CBC, BMP ####[address] MCH (RBC) [Entitic mass] 30.4 pg Normal 24.7-34.3 [facility] Comment on above: Performed By: #### L IPASE, HEPATIC, CBC, BMP ####[address] MCV (RBC) [Entitic vol] 86.6 fL Normal 80-100 [facility] Comment on above: Performed By: #### L IPASE, HEPATIC, CBC, BMP ####[address] Mean Corpuscular HGB Conc 35.1 g/dL High 32.0-35.0 [facility] Comment on above: Performed By: #### L IPASE, HEPATIC, CBC, BMP ####[address] Monocytes (Bld) [#/Vol] 0.6 10*3/uL Normal 0.0-0.8 [facility] Comment on above: Performed By: #### L IPASE, HEPATIC, CBC, BMP ####[place] [id number] [place] Monocytes/100 WBC (Bld) 19.91 % Normal 0.00-20.00 [facility] Comment on above: Performed By: #### L IPASE, HEPATIC, CBC, BMP ####[place] [id number] [place] Monocytes/100 WBC (Bld) 6.1 % Normal . [facility] Comment on above: Performed By: #### L IPASE, HEPATIC, CBC, BMP ####[address] Neutrophils (Bld) [#/Vol] 7.4 10*3/uL Normal 1.8-7.7 [facility] Comment on above: Performed By: #### L IPASE, HEPATIC, CBC, BMP ####[place] [id number] [place] Neutrophils/100 WBC (Bld) 70.7 % Normal . [facility] Comment on above: Performed By: #### L IPASE, HEPATIC, CBC, BMP ####[place] [id number] [place] NRBC% 0.1 /100{WBC} Normal 0-0.5 [facility] Comment on above: Performed By: #### L IPASE, HEPATIC, CBC, BMP ####[place] [id number] [place] Platelet mean volume (Bld) [Entitic vol] 7.4 fL Normal 6.3-10.7 [facility] Comment on above: Performed By: #### L IPASE, HEPATIC, CBC, BMP ####[address] [address] [place] Platelets (Bld) [#/Vol] 224 10*3/uL Normal 150-450 [facility] Comment on above: Performed By: #### L IPASE, HEPATIC, CBC, BMP ####[address] RBC (Bld) [#/Vol] 4.56 10*6/uL Normal 3.60-5.00 [facility] Comment on above: Performed By: #### L IPASE, HEPATIC, CBC, BMP ####[place] [id number] [place] WBC (Bld) [#/Vol] 10.4 10*3/uL Normal 3.8-11.6 [facility] Comment on above: Performed By: #### L IPASE, HEPATIC, CBC, BMP ####[address] Hepatic Panelon 11-23-2022 Albumin [Mass/Vol] 4.3 g/dL Normal 3.5-5.7 [facility] Comment on above: Performed By: #### L IPASE, HEPATIC, CBC, BMP ####[address] Albumin/Globulin [Mass ratio] 1.3 {ratio} Normal [facility] Comment on above: Performed By: #### L IPASE, HEPATIC, CBC, BMP ####[address] ALP [Catalytic activity/Vol] 73 U/L Normal 34-104 [facility] Comment on above: Performed By: #### L IPASE, HEPATIC, CBC, BMP ####[place] [id number] [place] ALT [Catalytic activity/Vol] 13 U/L Normal 7-52 [facility] Comment on above: Performed By: #### L IPASE, HEPATIC, CBC, BMP ####[place] [id number] [place] AST [Catalytic activity/Vol] 14 U/L Normal 13-39 [facility] Comment on above: Performed By: #### L IPASE, HEPATIC, CBC, BMP ####[place] [id number] [place] Bilirubin [Mass/Vol] 0.4 mg/dL Normal 0.3-1.0 [facility] Comment on above: Performed By: #### L IPASE, HEPATIC, CBC, BMP ####[address] Bilirubin,Indirect 0.4 mg/dL Normal [facility] Comment on above: Performed By: #### L IPASE, HEPATIC, CBC, BMP ####[address] Bilirubin.indirect [Mass/Vol] 0.00 mg/dL Low 0.03-0.18 [facility] Comment on above: Result Comment: If t he DBIL is less than 0.1, IBIL is not able to be calculated. Performed By: #### L IPASE, HEPATIC, CBC, BMP ####[address] Globulin (S) [Mass/Vol] 3.2 g/dL Normal [facility] Comment on above: Performed By: #### L IPASE, HEPATIC, CBC, BMP ####[address] Protein [Mass/Vol] 7.5 g/dL Normal 6.4-8.9 [facility] Comment on above: Performed By: #### L IPASE, HEPATIC, CBC, BMP ####[place] [id number] [place] Lipaseon 11-23-2022 Lipase [Catalytic activity/Vol] 36.0 U/L Normal 11.0-82.0 [facility] Comment on above: Result Comment: PERF ORMED BY:[address] [place], [place] [id number] MEDICAL DIRECTORNATALIA MIKE M.D. Performed By: #### L IPASE, HEPATIC, CBC, BMP ####[place] [id number] [place] US renal BIon 11-23-2022 US renal BI Normal [facility] Alanine aminotransferase [En zymatic activity/volume] in Serum or PlasmaOrdered By: Joseluis Vega on 11-22-2022 ALT [Catalytic activity/Vol] 13 U/L 7-52 [facility] Albumin [Mass/volume] in Ser um or Plasma by Bromocresol green (BCG) dye binding methoOrdered By: Joseluis Vega on 11-22-2022 Albumin BCG dye [Mass/Vol] 4.3 g/dL 3.5-5.7 [facility] Alkaline phosphatase [Enzyma tic activity/volume] in Serum or PlasmaOrdered By: Joseluis Vega on 11-22-2022 ALP [Catalytic activity/Vol] 73 U/L 34-104 [facility] Aspartate aminotransferase [ Enzymatic activity/volume] in Serum or PlasmaOrdered By: Joseluis Vega on 11-22-2022 AST [Catalytic activity/Vol] 14 U/L 13-39 [facility] Automated erythrocytes count in urine sediment (number/area)Ordered By: Joseluis Vega on 11-22-2022 RBC Auto (Urine sed) [#/Area] Innumerable [HPF] 0-4 [facility] Automated leukocytes count i n urine sediment (number/area)Ordered By: Joseluis Vega on 11-22-2022 WBC Auto (Urine sed) [#/Area] 10-19 [HPF] 0-4 [facility] Basophils Auto (Bld) [#/Vol] Ordered By: Joseluis Vega on 11-22-2022 Basophils (Bld) [#/Vol] 0.1 10*3/uL 0.0-0.2 [facility] Basophils/100 WBC Auto (Bld) Ordered By: Joseluis Vega on 11-22-2022 Basophils/100 WBC (Bld) 0.8 % . [facility] Bilirubin Test strip Ql (U)O rdered By: Joseluis Vega on 11-22-2022 Bilirubin Ql (U) Negative Negative [facility] Bilirubin.direct [Mass/volum e] in Serum or PlasmaOrdered By: Joseluis Vega on 11-22-2022 Bilirubin.direct [Mass/Vol] 0.00 mg/dL 0.03-0.18 [facility] Comment on above: If the DBIL is less than 0.1, IBIL is not able to becalculated. Bilirubin.total [Mass/volume ] in Serum or PlasmaOrdered By: Joseluis Vega on 11-22-2022 Bilirubin [Mass/Vol] 0.4 mg/dL 0.3-1.0 [facility] Calcium [Mass/volume] in Ser um or PlasmaOrdered By: Joseluis Vega on 11-22-2022 Calcium [Mass/Vol] 9.2 mg/dL 8.6-10.3 [facility] Carbon dioxide, total [Moles /volume] in Serum or PlasmaOrdered By: Joseluis Vega on 11-22-2022 CO2 [Moles/Vol] 26.6 mmol/L 21.0-31.0 [facility] Chloride [Moles/volume] in S jaron or PlasmaOrdered By: Joseluis Vega on 11-22-2022 Chloride [Moles/Vol] 102 mmol/L 98-107 [facility] Color Auto (U)Ordered By: Monika Vega on 11-22-2022 Color (U) Yellow Yellow [facility] Creatinine [Mass/volume] in Serum or PlasmaOrdered By: Joseluis Vega on 11-22-2022 Creatinine [Mass/Vol] 0.64 mg/dL 0.60-1.20 [facility] Dipstick and Microscopicon 0 11-22-2022 Appearance (U) Clear Normal Clear [facility] Comment on above: Order Comment: Name Collection Type:: Clean-Voided Midstream Performed By: #### C UU, UHCG, ADDONUAPLUS ####[facility] [id number] Bacteria,Urine None Seen Normal None Seen [facility] Comment on above: Order Comment: Name Collection Type:: Clean-Voided Midstream Performed By: #### C UU, UHCG, ADDONUAPLUS ####[facility] [id number] [place] [id number] [place] Bilirubin,Urine Negative Normal Negative [facility] Comment on above: Order Comment: Name Collection Type:: Clean-Voided Midstream Performed By: #### C UU, UHCG, ADDONUAPLUS ####[address] [address] [place] Color (U) Yellow Normal Yellow [facility] Comment on above: Order Comment: Name Collection Type:: Clean-Voided Midstream Performed By: #### C UU, UHCG, ADDONUAPLUS ####[address] [address] [place] Glucose Ql (U) Normal Normal Normal [facility] Comment on above: Order Comment: Name Collection Type:: Clean-Voided Midstream Performed By: #### C UU, UHCG, ADDONUAPLUS ####[address] [address] [place] Hyaline Casts,Urine None Seen Normal 0-8 [facility] Comment on above: Order Comment: Name Collection Type:: Clean-Voided Midstream Performed By: #### C UU, UHCG, ADDONUAPLUS ####[address] [address] [place] Ketones Ql (U) Negative Normal Negative [facility] Comment on above: Order Comment: Name Collection Type:: Clean-Voided Midstream Performed By: #### C UU, UHCG, ADDONUAPLUS ####[address] [address] [place] Leukocyte esterase Test strip Ql (U) 2+ High Negative [facility] Comment on above: Order Comment: Name Collection Type:: Clean-Voided Midstream Performed By: #### C UU, UHCG, ADDONUAPLUS ####[address] [address] [place] Nitrite,Urine Negative Normal Negative [facility] Comment on above: Order Comment: Name Collection Type:: Clean-Voided Midstream Performed By: #### C UU, UHCG, ADDONUAPLUS ####[address] [address] [place] Occult Blood,Urine 3+ High Negative [facility] Comment on above: Order Comment: Name Collection Type:: Clean-Voided Midstream Performed By: #### C UU, UHCG, ADDONUAPLUS ####[address] pH (U) 6.0 [pH] Normal 5.0-9.0 [facility] Comment on above: Order Comment: Name Collection Type:: Clean-Voided Midstream Performed By: #### C UU, UHCG, ADDONUAPLUS ####[place] [id number] [place] Protein,Urine Trace High Negative [facility] Comment on above: Order Comment: Name Collection Type:: Clean-Voided Midstream Performed By: #### C UU, UHCG, ADDONUAPLUS ####[address] RBC,Urine Innumerable High 0-4 [facility] Comment on above: Order Comment: Name Collection Type:: Clean-Voided Midstream Performed By: #### C UU, UHCG, ADDONUAPLUS ####[place] [id number] [place] Specificy [place],Urine 1.012 Normal 1.001-1.[address] [facility] Comment on above: Order Comment: Name Collection Type:: Clean-Voided Midstream Performed By: #### C UU, UHCG, ADDONUAPLUS ####[place] [id number] [place] Squamous Epithelial Cell,Urine 1-2 Normal 0-2 [facility] Comment on above: Order Comment: Name Collection Type:: Clean-Voided Midstream Performed By: #### C UU, UHCG, ADDONUAPLUS ####[place] [id number] [place] Urobilinogen,Urine Normal Normal Normal [facility] Comment on above: Order Comment: Name Collection Type:: Clean-Voided Midstream Performed By: #### C UU, UHCG, ADDONUAPLUS ####[address] [place] [address] [place] WBC,Urine 10-19 High 0-4 [facility] Comment on above: Order Comment: Name Collection Type:: Clean-Voided Midstream Performed By: #### C UU, UHCG, ADDONUAPLUS ####[facility] [id number] [place] [address] [place] Eosinophils Auto (Bld) [#/Vo l]Ordered By: Joseluis Vega on 11-22-2022 Eosinophils (Bld) [#/Vol] 0.2 10*3/uL 0.0-0.45 [facility] Eosinophils/100 WBC Auto (Bl d)Ordered By: Joseluis Vega on 11-22-2022 Eosinophils/100 WBC (Bld) 1.9 % . [facility] Erythrocyte distribution wid th Auto (RBC) [Ratio]Ordered By: Joseluis Vega on 11-22-2022 Erythrocyte distribution width (RBC) [Ratio] 12.7 % 11.9-15.3 [facility] Globulin Calc (S) [Mass/Vol] Ordered By: Joseluis Vega on 11-22-2022 Globulin (S) [Mass/Vol] 3.2 g/dL [facility] Glucose [Mass/volume] in Ser um or PlasmaOrdered By: Joseluis Vega on 11-22-2022 Glucose [Mass/Vol] 259 mg/dL 70-100 [facility] Comment on above: ADA recommended refe rence rangeRandom Glucose Reference Range is dependent on time and content of last meal. Glucose of more than 200 mg/dL in a nonstressed, ambulatory subject supports the diagnosis of Diabetes Mellitus. HCG ( test) IAaaroni d Ql (U)Ordered By: Joseluis Vega on 11-22-2022 HCG ( test) Ql (U) Negative [facility] HCG,Urineon 11-22-2022 Beta HCG ( test) Ql (U) Negative Normal [facility] Comment on above: Order Comment: Name Collection Type:: Clean-Voided Midstream Result Comment: PERF ORMED BY:[place] [address] [place], [place] [id number] MEDICAL DIRECTORNATALIA MIKE M.D. Performed By: #### C UU, [facility], ADDONUAPLUS ####[facility] [id number] [place] [id number] [place] Hematocrit Auto (Bld) [Volum e fraction]Ordered By: Joseluis Vega on 11-22-2022 Hematocrit (Bld) [Volume fraction] 39.5 % 34.0-46.4 [facility] Hemoglobin [Mass/volume] in BloodOrdered By: Joseluis Vega on 11-22-2022 Hemoglobin (Bld) [Mass/Vol] 13.9 g/dL 11.8-15.4 [facility] Ketones Auto test strip (U) [Mass/Vol]Ordered By: Joseluis Vega on 11-22-2022 Ketones (U) [Mass/Vol] Negative Negative [facility] Laboratory - UrinalysisOrder ed By: Joseluis Vega on 11-22-2022 Hyaline casts LM Ql (Urine sed) None seen [LPF] 0-8 [facility] Leukocytes [#/volume] correc suzanne for nucleated erythrocytes in Blood by Automated counOrdered By: Joseluis Vega on 11-22-2022 WBC corrected for nucl RBC Auto (Bld) [#/Vol] 10.4 10*3/uL 3.8-11.6 [facility] Lipase [Enzymatic activity/v olume] in Serum or PlasmaOrdered By: Joseluis Vega on 11-22-2022 Lipase [Catalytic activity/Vol] 36.0 U/L 11.0-82.0 [facility] Lymphocytes Auto (Bld) [#/Vo l]Ordered By: Joseluis Vega on 11-22-2022 Lymphocytes (Bld) [#/Vol] 2.1 10*3/uL 1.00-4.8 [facility] Lymphocytes/100 WBC Auto (Bl d)Ordered By: Joseluis Vega on 11-22-2022 Lymphocytes/100 WBC (Bld) 20.5 % . [facility] MCH Auto (RBC) [Entitic mass ]Ordered By: Joseluis Vega on 11-22-2022 MCH (RBC) [Entitic mass] 30.4 pg 24.7-34.3 [facility] MCHC Auto (RBC) [Mass/Vol]Or dered By: Joseluis Vega on 11-22-2022 MCHC (RBC) [Mass/Vol] 35.1 g/dL 32.0-35.0 [facility] MCV Auto (RBC) [Entitic vol] Ordered By: Joseluis Vega on 11-22-2022 MCV (RBC) [Entitic vol] 86.6 fL 80-100 [facility] Monocyte distribution width [Entitic volume] in Blood by AutomatedOrdered By: Joseluis Vega on 11-22-2022 Monocyte distribution width Auto (Bld) [Entitic vol] 19.91 % 0.00-20.00 [facility] Monocytes Auto (Bld) [#/Vol] Ordered By: Joseluis Vega on 11-22-2022 Monocytes (Bld) [#/Vol] 0.6 10*3/uL 0.0-0.8 [facility] Monocytes/100 WBC Auto (Bld) Ordered By: Joseluis Vega on 11-22-2022 Monocytes/100 WBC (Bld) 6.1 % . [facility] Neutrophils Auto (Bld) [#/Vo l]Ordered By: Joseluis Vega on 11-22-2022 Neutrophils (Bld) [#/Vol] 7.4 10*3/uL 1.8-7.7 [facility] Neutrophils/100 WBC Auto (Bl d)Ordered By: Joseluis Vega on 11-22-2022 Neutrophils/100 WBC (Bld) 70.7 % . [facility] Nitrite Test strip Ql (U)Ord ered By: Joseluis Vega on 11-22-2022 Nitrite Ql (U) Negative Negative [facility] No Panel InformationOrdered By: Joseluis Vega on 11-22-2022 Estimated GFR (CKD-EPI) > 60.0 mL/Min [facility] Creatinine Clearance (Chem 147.22 [facility] > 60.0 mL/Min [facility] 147.22 [facility] None seen [LPF] 0-8 [facility] Nucleated erythrocytes [Pres ence] in Blood by Automated countOrdered By: Joseluis Vega on 11-22-2022 Nucleated RBC Auto Ql (Bld) 0.1 /100{WBC} 0-0.5 [facility] Platelet mean volume Auto (B ld) [Entitic vol]Ordered By: Joseluis Vega on 11-22-2022 Platelet mean volume (Bld) [Entitic vol] 7.4 fL 6.3-10.7 [facility] Platelets Auto (Bld) [#/Vol] Ordered By: Joseluis Vega on 11-22-2022 Platelets (Bld) [#/Vol] 224 10*3/uL 150-450 [facility] Potassium [Moles/volume] in Serum or PlasmaOrdered By: Joseluis Vega on 11-22-2022 Potassium [Moles/Vol] 3.9 mmol/L 3.5-5.1 [facility] Protein Auto test strip (U) [Mass/Vol]Ordered By: Joseluis Vega on 11-22-2022 Protein (U) [Mass/Vol] Trace mg/dL Negative F [facility] Protein [Mass/volume] in Ser um or PlasmaOrdered By: Joseluis Vega on 11-22-2022 Protein [Mass/Vol] 7.5 g/dL 6.4-8.9 [facility] RBC Auto (Bld) [#/Vol]Ordere d By: Joseluis Vega on 11-22-2022 RBC (Bld) [#/Vol] 4.56 10*6/uL 3.60-5.00 [facility] Serum or plasma albumin/glob ulin mass ratioOrdered By: Joseluis Vega on 11-22-2022 Albumin/Globulin [Mass ratio] 1.3 {ratio} [facility] Serum or plasma anion gap de terminationOrdered By: Joseluis Vega on 11-22-2022 Anion gap [Moles/Vol] 14.3 mmol/L 6.0-15.0 [facility] Serum or plasma non-glucuron idated bilirubin measurement (mass/volume)Ordered By: Joseluis Vega on 11-22-2022 Bilirubin.indirect [Mass/Vol] 0.4 mg/dL [facility] Sodium [Moles/volume] in Ser um or PlasmaOrdered By: Joseluis Vega on 11-22-2022 Sodium [Moles/Vol] 139 mmol/L 136-145 [facility] Specific gravity Auto test s trip (U) [Rel density]Ordered By: Joseluis Vega on 11-22-2022 Specific gravity (U) [Rel density] 1.012 1.001-1.[address] [facility] Squamous epithelial cells de tection in urine sediment by light microscopyOrdered By: Joseluis Vega on 11-22-2022 Epithelial cells.squamous LM Ql (Urine sed) 1-2 [HPF] 0-2 [facility] Urea nitrogen [Mass/volume] in Serum or PlasmaOrdered By: Joseluis Vega on 11-22-2022 Urea nitrogen [Mass/Vol] 15 mg/dL 7-25 [facility] Urine Cultureon 11-22-2022 Bacteria identified Cx Nom (U) Normal [facility] Comment on above: Performed By: #### C UU, UHCG, ADDONUAPLUS ####[facility] [id number] Urine bacteria detection by automated methodOrdered By: Joseluis Vega on 11-22-2022 Bacteria Auto Ql (U) None seen None Seen [facility] Urine clarity by refractomet ry automatedOrdered By: Joesluis Vega on 11-22-2022 Clarity Refractometry automated (U) Clear Clear [facility] Urine culture routineOrdered By: Joseluis Vega on 11-22-2022 Bacteria identified Cx Nom (U) [address] [facility] Urine glucose measurement by automated test strip (mass/volume)Ordered By: Joseluis Vega on 11-22-2022 Glucose Auto test strip (U) [Mass/Vol] Normal mg/dL Normal [facility] Urine hemoglobin detection b y automated test stripOrdered By: Joseluis Vega on 11-22-2022 Hemoglobin Auto test strip Ql (U) 3+ Negative [facility] Urine leukocyte esterase det ection by automated test stripOrdered By: Joseluis Vega on 11-22-2022 Leukocyte esterase Auto test strip Ql (U) 2+ Negative [facility] Urobilinogen Auto test strip (U) [Mass/Vol]Ordered By: Joseluis Vega on 11-22-2022 Urobilinogen (U) [Mass/Vol] Normal mg/dL Normal [facility] WBC Auto (Bld) [#/Vol]Ordere d By: Joseluis Vega on 11-22-2022 WBC (Bld) [#/Vol] 10.4 10*3/uL 3.8-11.6 [facility] pH Auto test strip (U)Ordere d By: Joseluis Vega on 11-22-2022 pH (U) 6.0 [pH] 5.0-9.0 [facility] Auto Diffon 11-03-2022 Basophils/100 WBC (Bld) 1.3 % Normal 0.0-2.0 [facility] Comment on above: Order Comment: Order Added by Discern Expert. Performed By: #### 2 [id number], [id number], [id number], [id number], [id number] ####[address] [address] Basophils/Leukocytes Auto (Bld) [Pure # fraction] 0.1 E9/L Normal 0.0-0.2 [facility] Comment on above: Order Comment: Order Added by Discern Expert. Performed By: #### 2 472524, [id number], 9354366, 1454413, [id number] ####[address] [address] Eosinophils/100 WBC (Bld) 5.0 % Normal 0.0-8.0 [facility] Comment on above: Order Comment: Order Added by Discern Expert. Performed By: #### 2 751533, [id number], 3608066, 1889914, [id number] ####[address] [address] Eosinophils/Leukocytes Auto (Bld) [Pure # fraction] 0.3 E9/L Normal 0.0-0.5 [facility] Comment on above: Order Comment: Order Added by Discern Expert. Performed By: #### 2 [id number], [id number], 2905220, 2379434, [id number] ####[facility] [id number] [place] [address] Lymphocytes/100 WBC (Bld) 28.2 % Normal 14.0-50.0 [facility] Comment on above: Order Comment: Order Added by Discern Expert. Performed By: #### 2 [id number], [id number], 6557333, 8871210, [id number] ####[address] [place] [address] Lymphocytes/Leukocytes Auto (Bld) [Pure # fraction] 1.6 E9/L Normal 1.0-4.0 [facility] Comment on above: Order Comment: Order Added by Discern Expert. Performed By: #### 2 639278, [id number], 0566689, 5741083, [id number] ####[address] [place] [address] Monocytes/100 WBC (Bld) 7.2 % Normal 4.0-14.0 [facility] Comment on above: Order Comment: Order Added by Discern Expert. Performed By: #### 2 [id number], [id number], 2188403, 0096792, [id number] ####[address] [address] Monocytes/Leukocytes Auto (Bld) [Pure # fraction] 0.4 E9/L Normal 0.2-1.0 [facility] Comment on above: Order Comment: Order Added by Discern Expert. Performed By: #### 2 570815, [id number], 3979084, 1665759, [id number] ####[address] [place] [address] Neutrophils/100 WBC (Bld) 58.3 % Normal 36.0-75.0 [facility] Comment on above: Order Comment: Order Added by Discern Expert. Performed By: #### 2 438836, [id number], 6635726, 5794641, [id number] ####[address] [place] [address] Neutrophils/Leukocytes Auto (Bld) [Pure # fraction] 3.3 E9/L Normal 2.0-7.5 [facility] Comment on above: Order Comment: Order Added by Discern Expert. Performed By: #### 2 010951, [id number], 7676393, 6411840, [id number] ####[facility] [id number] [place] [address] BMPon 11-03-2022 Creatinine [Mass/Vol] 0.7 mg/dL Normal 0.5-1.3 [facility] Comment on above: Performed By: #### 2 407005, [id number], 7170162, 3617720, [id number] ####[facility] [id number] [place] [address] Urea nitrogen [Mass/Vol] 10 mg/dL Normal 5-21 [facility] Comment on above: Performed By: #### 2 067555, [id number], 8096425, 7567962, [id number] ####[facility] [id number] [place] [address] Urea nitrogen/Creatinine [Mass ratio] 14 No Units Normal 10-20 [facility] Comment on above: Performed By: #### 2 978832, [id number], 2287938, 3272060, [id number] ####[facility] [id number] [place] [address] Anion gap [Moles/Vol] 13 mmol/L Normal 6-16 [facility] Comment on above: Performed By: #### 2 379842, [id number], 5902853, 6887187, [id number] ####[facility] [facility] [address] [place] [address] Calcium [Mass/Vol] 9.3 mg/dL Normal 8.9-11.1 [facility] Comment on above: Performed By: #### 2 857644, 25826033, 5934691, 6786954, 69478845 ####[facility] [address] [place] [address] Chloride [Moles/Vol] 97 mmol/L Low 101-111 [facility] Comment on above: Performed By: #### 2 422297, 36388631, 8915726, 0803660, 44764616 ####[facility] [address] [place] [address] CO2 [Moles/Vol] 27 mmol/L Normal 21-31 [facility] Comment on above: Performed By: #### 2 201403, 61566633, 8603091, 4322767, 61112169 ####[facility] [address] [place] [address] Glucose [Mass/Vol] 384 mg/dL High 55-199 [facility] Comment on above: Result Comment: If t his glucose result represents a fasting glucose, interpretation should refer to the following reference range: 55-99 mg/dL Performed By: #### 2 263760, 62456380, 2043756, 3490285, 28414179 ####[facility] [address] [place] [address] Potassium [Moles/Vol] 4.1 mmol/L Normal 3.5-5.3 [facility] Comment on above: Performed By: #### 2 182423, 82356170, 7995017, 0991184, 26176924 ####[facility] [address] [place] [address] Sodium [Moles/Vol] 133 mmol/L Low 135-145 [facility] Comment on above: Performed By: #### 2 670950, 82063588, 8011482, 8005571, 04854851 ####[facility] [address] [place] [address] CBC w/ Auto Diffon 3 Erythrocyte distribution width (RBC) [Ratio] 12.8 % Normal 10.9-14.2 [facility] Comment on above: Performed By: #### 2 953319, 48674733, 5290497, 0796241, 32004833 ####[facility] [address] [place] [address] Hematocrit (Bld) [Volume fraction] 41.5 % Normal 34.0-46.0 [facility] Comment on above: Performed By: #### 2 179913, 55627467, 8720192, 7712280, 03446516 ####[facility] [address] [place] [address] Hemoglobin (Bld) [Mass/Vol] 13.9 g/dL Normal 12.0-16.0 [facility] Comment on above: Performed By: #### 2 390114, 44551255, 9126272, 0010372, 10537791 ####[facility] [address] [place] [address] MCH (RBC) [Entitic mass] 29.2 pg Normal 27.0-34.0 [facility] Comment on above: Performed By: #### 2 996540, 68510182, 5047838, 3472616, 34910584 ####[address] [address] MCHC (RBC) [Mass/Vol] 33.6 g/dL Normal 31.4-36.0 [facility] Comment on above: Performed By: #### 2 318282, 06989742, 2130713, 9490402, 37750021 ####[facility] [address] [place] [address] MCV (RBC) [Entitic vol] 86.9 fL Normal 80.0-100.0 [facility] Comment on above: Performed By: #### 2 453504, 36482695, 6086314, 5500075, 81334050 ####[facility] [address] [place] [address] Platelet mean volume (Bld) [Entitic vol] 7.1 fL Normal 6.4-10.8 [facility] Comment on above: Performed By: #### 2 689483, 70078163, 6913476, 0059155, 46739342 ####[address] [address] Platelets (Bld) [#/Vol] 202.0 E9/L Normal 150.0-500. 0 [facility] Comment on above: Performed By: #### 2 490370, 71235244, 1564066, 8188786, 01049553 ####[facility] [address] [place] [address] RBC (Bld) [#/Vol] 4.8 E12/L Normal 4.3-5.9 [facility] Comment on above: Performed By: #### 2 603971, 62678031, 7245188, 0471413, 39291861 ####[facility] [address] [place] [address] WBC corrected for nucl RBC Auto (Bld) [#/Vol] 5.7 E9/L Normal 4.0-11.0 [facility] Comment on above: Performed By: #### 2 879504, 67077614, 1928081, 0623749, 55932918 ####[facility] [address] [place] [address] CHEMISTRYOrdered By: Lab ROP User on 11-03-2022 Glucose [Mass/Vol] 347 mg/dL High 55 - 99 mg/dL [facility] P[facility] Subsection Comment on above: Result Comment: Joselyn CERVANTES POC Device SN [id number] Invalid Interpretation Code [facility] POC Subsection POC User ID [id number] Invalid Interpretation Code [facility] POC Subsection POC Username JUANCARLOS CASTANEDA Invalid Interpretation Code [facility] POC Subsection Capillary Glucose POCon Glucose [Mass/Vol] 347 mg/dL High 55-99 [facility] Comment on above: Result Comment: Joselyn CERVANTES Performed By: #### 2 [id number] ####[facility] [address] [place] [address] Discharge Instructionson Discharge Instructions [id number]#[id number]:1 27 Normal [facility] ED Clinical Summaryon 2022 ED [facility]-19 ED Note-Physician Normal [facility] Comment on above: Result Comment: Elec tronically Signed By: Indy FERNANDEZ, Grey Preston\.br\Date and Time Signed: 11/03/22 01:54 EDT ED Patient Education Noteon 11-03-2022 ED Patient Education Note Normal [facility] ED Patient Summaryon 023 ED Patient Summary Normal [facility] Troponin 0 Hr.on 11-03-2022 Troponin I.cardiac [Mass/Vol] 3.00 pg/mL Low 10.10-27.1 0 [facility] Comment on above: Result Comment: The 95% CI (Confidence Interval) PPV (Positive Predictive Value) for myocardial infarction in females is 38 pg/mL, in males 51 pg/mL. The results should be used in conjunction with clinical conditions of myocardial infarction.(Access High Sensitivity Troponin I Instructions For Use, [employer], January 2018) Performed By: #### 2 407039, 16284272, 3054285, 1139704, 74552045 ####[facility] [address] [place] [address] XR Chest Single Viewon 11-03 XR Chest Single View Normal [facility] XR Hip 2-3 Views Righton XR Hip 2-3 Views Right Normal [facility] XR Knee Complete 4+ Views Ri ghton 11-03-2022 XR Knee Complete 4+ Views Right Normal [facility] XR Shoulder Complete Righton 11-03-2022 XR Shoulder Complete Right Normal [facility] eGFRon 11-03-2022 GFR/1.73 sq M.predicted among non-blacks MDRD (S/P/Bld) [Vol rate/Area] 107 mL/min/1.73 m2 Normal >=59 [facility] Comment on above: Order Comment: Order added by Discern Expert. Result Comment: [employer] Professional aiyana kidney disease could be indicated at eGFR's of less than 60 mL/min/1.73m2. Kidney failure is indicated at less than 15 mL/min/1.73m2. Performed By: #### 2 600091, 29791918, 1329821, 8938899, 06635878 ####[facility] [address] [place] [address] CHEMISTRYOrdered By: SYSTEM SYSTEM on 11-02-2022 Anion gap [Moles/Vol] 13 mmol/L Normal 6 - 16 mEq/L [facility] Calcium [Mass/Vol] 9.3 mg/dL Normal 8.9 - 11. 1 mg/dL [facility] Chloride [Moles/Vol] 97 mmol/L Low 101 - 1 11 mmol/L [facility] CO2 [Moles/Vol] 27 mmol/L Normal 21 - 31 mmol/L [facility] Creatinine [Mass/Vol] 0.7 mg/dL Normal 0.5 - 1.3 mg/dL [facility] GFR/1.73 sq M.predicted among non-blacks MDRD (S/P/Bld) [Vol rate/Area] 107 mL/min/1.73 m2 Normal >=59mL/min /1.73 m2 [facility] Chem S Glucose [Mass/Vol] 384 mg/dL High 55 - 199 mg/dL [facility] Potassium [Moles/Vol] 4.1 mmol/L Normal 3.5 - 5.3 mmol/L [facility] Sodium [Moles/Vol] 133 mmol/L Low 135 - 145 mmol/L [facility] Troponin I.cardiac [Mass/Vol] 3.00 pg/mL Low 10.10 - 27.10 pg/mL [facility] Urea nitrogen [Mass/Vol] 10 mg/dL Normal 5 - 21 mg/dL [facility] Urea nitrogen/Creatinine [Mass ratio] 14 mg/mg Normal 10 - 20 [facility] Consent for Treatmenton Consent for Treatment [id number]#[id number]:12 7 Normal [facility] HEMATOLOGYOrdered By: SYSTEM SYSTEM on 11-02-2022 Basophils/100 WBC (Bld) 1.3 % Normal 0.0 - 2.0 % [facility] Basophils/Leukocytes Auto (Bld) [Pure # fraction] 0.1 E9/L Normal 0.0 - 0.2 E9/L [facility] Eosinophils/100 WBC (Bld) 5.0 % Normal 0.0 - 8.0 % [facility] Eosinophils/Leukocytes Auto (Bld) [Pure # fraction] 0.3 E9/L Normal 0.0 - 0.5 E9/L [facility] Lymphocytes/100 WBC (Bld) 28.2 % Normal 14.0 - 50.0 % [facility] Lymphocytes/Leukocytes Auto (Bld) [Pure # fraction] 1.6 E9/L Normal 1.0 - 4.0 E9/L [facility] Monocytes/100 WBC (Bld) 7.2 % Normal 4.0 - 14.0 % [facility] Monocytes/Leukocytes Auto (Bld) [Pure # fraction] 0.4 E9/L Normal 0.2 - 1.0 E9/L [facility] Neutrophils/100 WBC (Bld) 58.3 % Normal 36.0 - 75.0 % [facility] Neutrophils/Leukocytes Auto (Bld) [Pure # fraction] 3.3 E9/L Normal 2.0 - 7.5 E9/L [facility] HEMATOLOGYOrdered By: Mark Kate on 11-02-2022 Erythrocyte distribution width (RBC) [Ratio] 12.8 % Normal 10.9 - 14.2 % [facility] Hematocrit (Bld) [Volume fraction] 41.5 % Normal 34.0 - 46.0 % [facility] Hemoglobin (Bld) [Mass/Vol] 13.9 g/dL Normal 12.0 - 16.0 gm/dL [facility] MCH (RBC) [Entitic mass] 29.2 pg Normal 27.0 - 34.0 pg [facility] MCHC (RBC) [Mass/Vol] 33.6 g/dL Normal 31.4 - 36.0 gm/dL [facility] MCV (RBC) [Entitic vol] 86.9 fL Normal 80.0 - 100.0 fL [facility] Platelet mean volume (Bld) [Entitic vol] 7.1 fL Normal 6.4 - 10.8 fL [facility] Platelets (Bld) [#/Vol] 202.0 E9/L Normal 150.0 - 500.0 E9/L [facility] RBC (Bld) [#/Vol] 4.8 E12/L Normal 4.3 - 5.9 E12/L [facility] WBC corrected for nucl RBC Auto (Bld) [#/Vol] 5.7 E9/L Normal 4.0 - 11.0 E9/L [facility] ECG 12 lead ECGon 10-30-2022 ECG [address] [facility] Coding Summary.on 10-29-2022 Coding Summary. Normal [facility] CT head/brain wo conon 10-28 CT head/brain wo con Normal [facility] CT lumbar spine wo conon CT lumbar spine wo con Normal [facility] Discharge Instructionson Discharge Instructions [id number]#1.00CD:1 27 Normal [facility] ED Clinical Summaryon 2022 ED Clinical Summary Normal [facility] ED Note-Physicianon 10-29-19 ED Note-Physician Normal [facility] Comment on above: Result Comment: Elec tronically Signed By: Jose Mederos PA-C\.br\Date and Time Signed: 10/27/22 23:07 EDT\.br\Electronically Co-Signed By: Grey Putnam DO\.br\Date and Time Co-Signed: 10/28/22 03:55 EDT ED Patient Education Noteon 10-28-2022 ED Patient Education Note Normal [facility] ED Patient Summaryon 023 ED Patient Summary Normal [facility] XR Abdomen 1 Viewon 10-29-19 XR Abdomen 1 View Normal [facility] XR Chest Single Viewon 10-28 XR Chest Single View Normal [facility] XR knee LT 4V*on 10-28-2022 XR knee LT 4V* Normal [facility] Auto Diffon 10-27-2022 Basophils/100 WBC (Bld) 0.9 % Normal 0.0-2.0 [facility] Comment on above: Order Comment: Order Added by Discern Expert. Performed By: #### 2 754230, 4912051, 92449132, 6450101, 4638935, 6584283 ####[address] [address] Basophils/Leukocytes Auto (Bld) [Pure # fraction] 0.1 E9/L Normal 0.0-0.2 [facility] Comment on above: Order Comment: Order Added by Discern Expert. Performed By: #### 2 054039, 1655427, 13824428, 9401270, 0755254, 3721264 ####[address] [address] Eosinophils/100 WBC (Bld) 3.1 % Normal 0.0-8.0 [facility] Comment on above: Order Comment: Order Added by Discern Expert. Performed By: #### 2 619081, 9917383, 58382944, 6895973, 4050985, 5763372 ####[address] [address] Eosinophils/Leukocytes Auto (Bld) [Pure # fraction] 0.3 E9/L Normal 0.0-0.5 [facility] Comment on above: Order Comment: Order Added by Discern Expert. Performed By: #### 2 049900, 0287272, 12211477, 7080335, 8355665, 0798686 ####[address] [address] Lymphocytes/100 WBC (Bld) 27.8 % Normal 14.0-50.0 [facility] Comment on above: Order Comment: Order Added by Discern Expert. Performed By: #### 2 627351, 5468523, 21998073, 2204299, 2284926, 7084708 ####[address] [address] Lymphocytes/Leukocytes Auto (Bld) [Pure # fraction] 2.5 E9/L Normal 1.0-4.0 [facility] Comment on above: Order Comment: Order Added by Discern Expert. Performed By: #### 2 075918, 0434960, 47760026, 6659584, 4125338, 7703109 ####[address] [address] Monocytes/100 WBC (Bld) 6.6 % Normal 4.0-14.0 [facility] Comment on above: Order Comment: Order Added by Discern Expert. Performed By: #### 2 921864, 7800503, 20791790, 0380720, 9658121, 5051978 ####[address] [place] [address] Monocytes/Leukocytes Auto (Bld) [Pure # fraction] 0.6 E9/L Normal 0.2-1.0 [facility] Comment on above: Order Comment: Order Added by Ariel Expert. Performed By: #### 2 880528, 8732582, 64548082, 8756017, 4893879, 8480109 ####[address] [place] [address] Neutrophils/100 WBC (Bld) 61.6 % Normal 36.0-75.0 [facility] Comment on above: Order Comment: Order Added by Discern Expert. Performed By: #### 2 698561, 3095142, 40589854, 5209558, 7949687, 3086236 ####[facility] [address] [place] [address] Neutrophils/Leukocytes Auto (Bld) [Pure # fraction] 5.4 E9/L Normal 2.0-7.5 [facility] Comment on above: Order Comment: Order Added by Ariel Expert. Performed By: #### 2 435369, 3828318, 92148932, 2476143, 7557497, 8309270 ####[facility] [address] [place] [address] BMPon 10-27-2022 Anion gap [Moles/Vol] 13 mmol/L Normal 6-16 [facility] Comment on above: Performed By: #### 2 316310, 0884270, 13277949, 6888961, 2225767, 6529879 ####[facility] [address] [place] [address] Calcium [Mass/Vol] 9.6 mg/dL Normal 8.9-11.1 [facility] Comment on above: Performed By: #### 2 364062, 4734758, 19807362, 3827142, 0207276, 9828061 ####[facility] [address] [place] [address] Chloride [Moles/Vol] 102 mmol/L Normal 101-111 [facility] Comment on above: Performed By: #### 2 633951, 2457136, 86298580, 0954288, 6550116, 6062904 ####[facility] [address] [place] [address] CO2 [Moles/Vol] 25 mmol/L Normal 21-31 [facility] Comment on above: Performed By: #### 2 613099, 5273319, 92614577, 9152957, 8115010, 4839669 ####[facility] [address] [place] [address] Creatinine [Mass/Vol] 0.7 mg/dL Normal 0.5-1.3 [facility] Comment on above: Performed By: #### 2 267321, 4406103, 28962146, 0023024, 9612756, 2099355 ####[facility] [address] [place] [address] Glucose [Mass/Vol] 312 mg/dL High 55-199 [facility] Comment on above: Result Comment: If t his glucose result represents a fasting glucose, interpretation should refer to the following reference range: 55-99 mg/dL Performed By: #### 2 840105, 1854940, 52600634, 9062859, 4496105, 5341418 ####[facility] [address] [place] [address] Potassium [Moles/Vol] 4.0 mmol/L Normal 3.5-5.3 [facility] Comment on above: Result Comment: 'Spe cimen hemolyzed. Result may be affected. Redraw is recommended.' Performed By: #### 2 717759, 8961004, 89108988, 1892722, 1925739, 0424452 ####[facility] [address] [place] [address] Sodium [Moles/Vol] 136 mmol/L Normal 135-145 [facility] Comment on above: Performed By: #### 2 096849, 0288247, 85069638, 1449530, 4738485, 9265546 ####[facility] [address] [place] [address] Urea nitrogen [Mass/Vol] 16 mg/dL Normal 5-21 [facility] Comment on above: Performed By: #### 2 041164, 0609996, 28312750, 3356813, 0660252, 4274062 ####[facility] [address] [place] [address] Urea nitrogen/Creatinine [Mass ratio] 23 No Units High 10-20 [facility] Comment on above: Performed By: #### 2 957236, 1459005, 21930714, 4316943, 8396587, 2122653 ####[facility] [address] [place] [address] CBC w/ Auto Diffon 3 Erythrocyte distribution width (RBC) [Ratio] 12.7 % Normal 10.9-14.2 [facility] Comment on above: Performed By: #### 2 675368, 2686830, 19656371, 7883091, 3345887, 1883193 ####[facility] [address] [place] [address] Hematocrit (Bld) [Volume fraction] 42.1 % Normal 34.0-46.0 [facility] Comment on above: Performed By: #### 2 715440, 1773922, 85337022, 8563995, 8606597, 2525047 ####[facility] [address] [place] [address] Hemoglobin (Bld) [Mass/Vol] 14.5 g/dL Normal 12.0-16.0 [facility] Comment on above: Performed By: #### 2 868275, 4839371, 56154756, 4960242, 6371296, 9535255 ####[address] [place] [address] MCH (RBC) [Entitic mass] 29.9 pg Normal 27.0-34.0 [facility] Comment on above: Performed By: #### 2 643398, 3805928, 04262643, 9360206, 2658965, 9493788 ####[place] [address] MCHC (RBC) [Mass/Vol] 34.3 g/dL Normal 31.4-36.0 [facility] Comment on above: Performed By: #### 2 768499, 2490299, 26507505, 3047739, 0499919, 6111762 ####[address] [address] MCV (RBC) [Entitic vol] 87.1 fL Normal 80.0-100.0 [facility] Comment on above: Performed By: #### 2 464618, 2969536, 64676363, 2767867, 3334754, 5570156 ####[place] [address] Platelet mean volume (Bld) [Entitic vol] 7.5 fL Normal 6.4-10.8 [facility] Comment on above: Performed By: #### 2 550047, 0576979, 05048113, 2772744, 7128414, 7535387 ####[address] [address] Platelets (Bld) [#/Vol] 244.0 E9/L Normal 150.0-500. 0 [facility] Comment on above: Result Comment: Slid e reviewed by Kamron to obtain accurate platelet count due to platelet clumping. Platelet count estimate appears normal on slide.. Performed By: #### 2 086747, 4746417, 27547942, 2475471, 6494543, 2312105 ####[address] [address] RBC (Bld) [#/Vol] 4.8 E12/L Normal 4.3-5.9 [facility] Comment on above: Performed By: #### 2 291683, 4211213, 00539529, 3306777, 6848915, 3389659 ####[facility] [address] [place] [address] WBC corrected for nucl RBC Auto (Bld) [#/Vol] 8.8 E9/L Normal 4.0-11.0 [facility] Comment on above: Performed By: #### 2 030207, 2176510, 75633104, 3818625, 7460155, 3219449 ####[facility] [address] [place] [address] CHEMISTRYOrdered By: SYSTEM SYSTEM on 10-27-2022 Albumin [Mass/Vol] 4.4 g/dL Normal 3.3 - 5.0 gm/dL [facility] Albumin/Globulin [Mass ratio] 1.1 {ratio} Normal 1.1 - 2.2 [facility] ALP [Catalytic activity/Vol] 76 [iU]/d Normal 21 - 98 Int._Unit/ L [facility] ALT No additional P-5'-P [Catalytic activity/Vol] 18 [iU]/d Normal 6 - 46 Int._Unit/ L [facility] Comment on above: Result Comment: 'Spe cimen hemolyzed, result may be affected. Recommend redraw.' Anion gap [Moles/Vol] 13 mmol/L Normal 6 - 16 mEq/L [facility] AST [Catalytic activity/Vol] 33 [iU]/d Normal 5 - 43 Int._Unit/ L [facility] Comment on above: Result Comment: 'Spe cimen hemolyzed, result may be affected. Recommend redraw.' Bilirubin [Mass/Vol] 0.9 mg/dL Normal 0.0 - 1 .1 mg/dL [facility] Comment on above: Result Comment: 'Spe cimen hemolyzed, result may be affected. Redraw is recommended.' Bilirubin.direct [Mass/Vol] 0.2 mg/dL Normal 0.1 - 0.4 mg/dL [facility] Comment on above: Result Comment: 'Spe cimen hemolyzed, result may be affected. Redraw recommended.' Bilirubin.indirect [Mass or moles/Vol] 0.6 mg/dL Normal 0.1 - 0.9 mg/dL [facility] Calcium [Mass/Vol] 9.6 mg/dL Normal 8.9 - 11. 1 mg/dL [facility] Chloride [Moles/Vol] 102 mmol/L Normal 101 - 1 11 mmol/L [facility] CO2 [Moles/Vol] 25 mmol/L Normal 21 - 31 mmol/L [facility] Creatinine [Mass/Vol] 0.7 mg/dL Normal 0.5 - 1.3 mg/dL [facility] GFR/1.73 sq M.predicted among non-blacks MDRD (S/P/Bld) [Vol rate/Area] 107 mL/min/1.73 m2 Normal >=59mL/min /1.73 m2 [facility] Chem S Globulin (S) [Mass/Vol] 3.9 g/dL Normal 1.4 - 4.0 gm/dL [facility] Glucose [Mass/Vol] 312 mg/dL High 55 - 199 mg/dL [facility] Lipase [Catalytic activity/Vol] 50 U/L Normal 13 - 58 unit/L [facility] Potassium [Moles/Vol] 4.0 mmol/L Normal 3.5 - 5.3 mmol/L [facility] Comment on above: Result Comment: 'Spe cimen hemolyzed. Result may be affected. Redraw is recommended.' Protein [Mass/Vol] 8.3 g/dL High 6.0 - 7.8 gm/dL [facility] Sodium [Moles/Vol] 136 mmol/L Normal 135 - 145 mmol/L [facility] Urea nitrogen [Mass/Vol] 16 mg/dL Normal 5 - 21 mg/dL [facility] Urea nitrogen/Creatinine [Mass ratio] 23 mg/mg High 10 - 20 [facility] Consent for Treatmenton Consent for Treatment [id number]#1.00CD:12 7 Normal [facility] HEMATOLOGYOrdered By: SYSTEM SYSTEM on 10-27-2022 Basophils/100 WBC (Bld) 0.9 % Normal 0.0 - 2.0 % [facility] Basophils/Leukocytes Auto (Bld) [Pure # fraction] 0.1 E9/L Normal 0.0 - 0.2 E9/L [facility] Eosinophils/100 WBC (Bld) 3.1 % Normal 0.0 - 8.0 % [facility] Eosinophils/Leukocytes Auto (Bld) [Pure # fraction] 0.3 E9/L Normal 0.0 - 0.5 E9/L [facility] Lymphocytes/100 WBC (Bld) 27.8 % Normal 14.0 - 50.0 % [facility] Lymphocytes/Leukocytes Auto (Bld) [Pure # fraction] 2.5 E9/L Normal 1.0 - 4.0 E9/L [facility] Monocytes/100 WBC (Bld) 6.6 % Normal 4.0 - 14.0 % [facility] Monocytes/Leukocytes Auto (Bld) [Pure # fraction] 0.6 E9/L Normal 0.2 - 1.0 E9/L [facility] Neutrophils/100 WBC (Bld) 61.6 % Normal 36.0 - 75.0 % [facility] Neutrophils/Leukocytes Auto (Bld) [Pure # fraction] 5.4 E9/L Normal 2.0 - 7.5 E9/L [facility] HEMATOLOGYOrdered By: Linda Montilla on 10-27-2022 Erythrocyte distribution width (RBC) [Ratio] 12.7 % Normal 10.9 - 14.2 % [facility] Hematocrit (Bld) [Volume fraction] 42.1 % Normal 34.0 - 46.0 % [facility] Hemoglobin (Bld) [Mass/Vol] 14.5 g/dL Normal 12.0 - 16.0 gm/dL [facility] MCH (RBC) [Entitic mass] 29.9 pg Normal 27.0 - 34.0 pg [facility] MCHC (RBC) [Mass/Vol] 34.3 g/dL Normal 31.4 - 36.0 gm/dL [facility] MCV (RBC) [Entitic vol] 87.1 fL Normal 80.0 - 100.0 fL [facility] Platelet mean volume (Bld) [Entitic vol] 7.5 fL Normal 6.4 - 10.8 fL [facility] Platelets (Bld) [#/Vol] 244.0 E9/L Normal 150.0 - 500.0 E9/L [facility] Comment on above: Result Comment: Slid e reviewed by ts Unable to obtain accurate platelet count due to platelet clumping. Platelet count estimate appears normal on slide.. RBC (Bld) [#/Vol] 4.8 E12/L Normal 4.3 - 5.9 E12/L [facility] WBC corrected for nucl RBC Auto (Bld) [#/Vol] 8.8 E9/L Normal 4.0 - 11.0 E9/L [facility] Hep Func Panelon 10-27-2022 Albumin [Mass/Vol] 4.4 g/dL Normal 3.3-5.0 [facility] Comment on above: Performed By: #### 2 937572, 0353141, 56375408, 7413098, 8194256, 4591307 ####[facility] [address] [place] [address] Albumin/Globulin (S) [Mass conc ratio] 1.1 Normal 1.1-2.2 [facility] Comment on above: Performed By: #### 2 431475, 5207106, 27866490, 4349477, 5775412, 7823211 ####[facility] [address] [place] [address] ALP [Catalytic activity/Vol] 76 Int._Unit/L Normal 21-98 [facility] Comment on above: Performed By: #### 2 854299, 1260385, 49338068, 6359143, 1002242, 9058411 ####[facility] [address] [place] [address] ALT No additional P-5'-P [Catalytic activity/Vol] 18 Int._Unit/L Normal 6-46 [facility] Comment on above: Result Comment: 'Spe cimen hemolyzed, result may be affected. Recommend redraw.' Performed By: #### 2 [id number], [id number], [id number], [id number], [id number], [id number] ####[facility] [address] [place] [address] AST [Catalytic activity/Vol] 33 Int._Unit/L Normal 5-43 [facility] Comment on above: Result Comment: 'Spe cimen hemolyzed, result may be affected. Recommend redraw.' Performed By: #### 2 [id number], [id number], [id number], [id number], [id number], [id number] ####[facility] [id number] [place] [address] Bilirubin [Mass/Vol] 0.9 mg/dL Normal 0.0-1.1 [facility] Comment on above: Result Comment: 'Spe cimen hemolyzed, result may be affected. Redraw is recommended.' Performed By: #### 2 [id number], [id number], [id number], [id number], [id number], [id number] ####[facility] [facility] [address] [place] [address] Bilirubin.direct [Mass/Vol] 0.2 mg/dL Normal 0.1-0.4 [facility] Comment on above: Result Comment: 'Spe cimen hemolyzed, result may be affected. Redraw recommended.' Performed By: #### 2 329150, 8449884, 71272680, 2268651, 3560383, 5937408 ####[facility] [address] [place] [address] Bilirubin.indirect [Mass or moles/Vol] 0.6 mg/dL Normal 0.1-0.9 [facility] Comment on above: Performed By: #### 2 729666, 7615575, 40445494, 4548907, 8768293, 2047185 ####[facility] [address] [place] [address] Globulin (S) [Mass/Vol] 3.9 g/dL Normal 1.4-4.0 [facility] Comment on above: Performed By: #### 2 535521, 6547739, 37129167, 0827698, 8179830, 1211344 ####[facility] [address] [place] [address] Protein [Mass/Vol] 8.3 g/dL High 6.0-7.8 [facility] Comment on above: Performed By: #### 2 278928, 1100527, 86827628, 4555934, 7851447, 2095093 ####[facility] [address] [place] [address] Lipase Levelon 10-27-2022 Lipase [Catalytic activity/Vol] 50 U/L Normal 13-58 [facility] Comment on above: Performed By: #### 2 326904, 1910912, 48944247, 3941175, 8812269, 0268070 ####[facility] [address] [place] [address] UA With Cult Reflexon 2022 Bacteria LM Ql (Urine sed) TRACE Normal Trace [facility] Comment on above: Performed By: #### 1 [id number] ####[address] [address] Bilirubin Ql (U) Negative Normal Negative [facility] Comment on above: Performed By: #### 1 6852977 ####[address] [address] Clarity (U) SL CLOUDY Abnormal Clear [facility] Comment on above: Performed By: #### 1 3827944 ####[address] [address] Color (U) YELLOW Normal Yellow [facility] Comment on above: Performed By: #### 1 3718072 ####[address] [address] Epithelial cells.squamous LM.HPF (Urine sed) [#/Area] 3-4 Normal 0-2 [facility] Comment on above: Performed By: #### 1 1886497 ####[address] [address] Glucose Test strip (U) [Mass/Vol] 3+ Abnormal Negative [facility] Comment on above: Performed By: #### 1 5858118 ####[facility] [address] [place] [address] Hemoglobin Ql (U) 3+ Abnormal Negative [facility] Comment on above: Performed By: #### 1 4972434 ####[facility] [address] [place] [address] Ketones (U) [Mass/Vol] Negative Normal Negative [facility] Comment on above: Performed By: #### 1 8232660 ####[address] [address] [place].plasma/[place] .RBC (Bld) [Mass ratio] >30 Abnormal 0-3 [facility] Comment on above: Performed By: #### 1 6275072 ####[address] [address] Nitrite Ql (U) Negative Normal Negative [facility] Comment on above: Performed By: #### 1 1447167 ####[address] [address] pH (U) 6.0 [pH] Invalid Interpretation Code 5.0-9.0 [facility] Comment on above: Performed By: #### 1 4206251 ####[address] [address] Protein (U) [Mass/Vol] Negative Normal Negative [facility] Comment on above: Performed By: #### 1 0390708 ####[address] [address] Specific gravity (U) [Rel density] 1.020 Invalid Interpretation Code 1.005-1.03 0 [facility] Comment on above: Performed By: #### 1 8725845 ####[address] [address] Type of Urine collection method Clean Catch Normal [facility] Comment on above: Performed By: #### 1 4422688 ####[address] [place] [address] Urobilinogen Qn (U) 0.2 {Diaz'U}/dL Normal 0.0-1.0 [facility] Comment on above: Performed By: #### 1 0755128 ####[facility] [address] [place] [address] WBC Auto Ql (U) Negative Normal Negative [facility] Comment on above: Performed By: #### 1 2096624 ####[facility] [address] [place] [address] WBC LM.HPF (Urine sed) [#/Area] 0-5 Normal 0-5 [facility] Comment on above: Performed By: #### 1 3130201 ####[facility] [address] [place] [address] URINALYSISOrdered By: Mark Kate on 10-27-2022 Bacteria LM Ql (Urine sed) Trace /HPF Normal Trace/HPF [facility] UA Auto SS Bilirubin Ql (U) Negative (10/27/22 8:49 PM) Normal Negative [facility] UA Auto SS Clarity (U) Slightly Cloudy *ABN* (10/27/22 8:49 PM) Invalid Interpretation Code Clear [facility] UA Auto SS Color (U) Yellow (10/27/22 8:49 PM) Normal Yellow [facility] UA Auto SS Epithelial cells.squamous LM.HPF (Urine sed) [#/Area] 3-4 /HPF Normal 0-2/HPF [facility] UA Aut o SS Glucose Test strip (U) [Mass/Vol] 3+ *ABN* (10/27/22 8:49 PM) Invalid Interpretation Code Negative [facility] UA Auto SS Hemoglobin Ql (U) 3+ *ABN* (10/27/22 8:49 PM) Invalid Interpretation Code Negative [facility] UA Auto SS Ketones (U) [Mass/Vol] Negative (10/27/22 8:49 PM) Normal Negative [facility] UA Auto SS [place].plasma/[place] .RBC (Bld) [Mass ratio] >30 /HPF Invalid Interpretation Code 0-3/HPF [facility] UA Auto SS Nitrite Ql (U) Negative (10/27/22 8:49 PM) Normal Negative [facility] UA Auto SS pH (U) 6.0 *NA* (10/27/22 8:49 PM) Invalid Interpretation Code 5.0 - 9.0 [facility] UA Auto SS Protein (U) [Mass/Vol] Negative (10/27/22 8:49 PM) Normal Negative [facility] UA Auto SS Specific gravity (U) [Rel density] 1.020 *NA* (10/27/22 8:49 PM) Invalid Interpretation Code 1.005 - 1.030 [facility] UA Auto SS UA Spec Desc Clean Catch (10/27/22 8:49 PM) Normal [facility] UA Auto SS Urobilinogen Qn (U) 0.7507150 {Diaz'U}/dL Normal 0.0 - 1.0 EU/dL [facility] UA Auto SS WBC Auto Ql (U) Negative (10/27/22 8:49 PM) Normal Negative [facility] UA Auto SS WBC LM.HPF (Urine sed) [#/Area] 0-5 /HPF Normal 0-5/HPF [facility] UA Auto SS eGFRon 10-27-2022 GFR/1.73 sq M.predicted among non-blacks MDRD (S/P/Bld) [Vol rate/Area] 107 mL/min/1.73 m2 Normal >=59 [facility] Comment on above: Order Comment: Order added by Discern Expert. Result Comment: [employer] Services Professional aiyana kidney disease could be indicated at eGFR's of less than 60 mL/min/1.73m2. Kidney failure is indicated at less than 15 mL/min/1.73m2. Performed By: #### 2 079324, 3100297, 35665952, 0336602, 6728438, 4883664 ####[facility] [address] [place] [address] Coding Summary.on 10-22-2022 Coding Summary. Normal [facility] ED Note-Physicianon 10-22-19 ED Note-Physician Normal [facility] Comment on above: Result Comment: Elec tronically Signed By: Gatito HATCH, Jose Cunningham.br\Date and Time Signed: 10/19/22 19:18 EDT\.br\Electronically Co-Signed By: Agatha Stinson M.D.\.br\Date and Time Co-Signed: 10/20/22 23:24 EDT Auto Diffon 10-19-2022 Basophils/100 WBC (Bld) 0.9 % Normal 0.0-2.0 [facility] Comment on above: Order Comment: Order Added by Ariel Expert. Performed By: #### 2 907858, 92014725, 4536634, 0561851, 94014006, 2054098, 0790256 ####[address] [address] Basophils/Leukocytes Auto (Bld) [Pure # fraction] 0.1 E9/L Normal 0.0-0.2 [facility] Comment on above: Order Comment: Order Added by Ariel Expert. Performed By: #### 2 034636, 42818543, 4669789, 5159658, 29178460, 6108543, 5595852 ####[address] [address] Eosinophils/100 WBC (Bld) 4.9 % Normal 0.0-8.0 [facility] Comment on above: Order Comment: Order Added by Ariel Expert. Performed By: #### 2 382518, 47253170, 0341514, 7812171, 71379840, 9646808, 0608052 ####[address] [place] [address] Eosinophils/Leukocytes Auto (Bld) [Pure # fraction] 0.4 E9/L Normal 0.0-0.5 [facility] Comment on above: Order Comment: Order Added by Discern Expert. Performed By: #### 2 813420, 33466530, 9258012, 3648557, 72980747, 9429914, 6968781 ####[address] [address] Lymphocytes/100 WBC (Bld) 24.2 % Normal 14.0-50.0 [facility] Comment on above: Order Comment: Order Added by Ariel Expert. Performed By: #### 2 519450, 75797777, 1395094, 5237731, 82930240, 8593853, 4878493 ####[address] [place] [address] Lymphocytes/Leukocytes Auto (Bld) [Pure # fraction] 1.9 E9/L Normal 1.0-4.0 [facility] Comment on above: Order Comment: Order Added by Discern Expert. Performed By: #### 2 332358, 61058174, 6307407, 0062436, 36703832, 5282154, 5939666 ####[address] [place] [address] Monocytes/100 WBC (Bld) 7.6 % Normal 4.0-14.0 [facility] Comment on above: Order Comment: Order Added by Discern Expert. Performed By: #### 2 893556, 53870217, 4177886, 6089117, 86658697, 5439497, 4394193 ####[address] [address] Monocytes/Leukocytes Auto (Bld) [Pure # fraction] 0.6 E9/L Normal 0.2-1.0 [facility] Comment on above: Order Comment: Order Added by Discern Expert. Performed By: #### 2 394798, 73092591, 2570485, 4117450, 61526003, 2643701, 2845296 ####[address] [place] [address] Neutrophils/100 WBC (Bld) 62.4 % Normal 36.0-75.0 [facility] Comment on above: Order Comment: Order Added by Discern Expert. Performed By: #### 2 991290, 78262356, 4572742, 3140492, 89155617, 3752521, 8597509 ####[address] [address] Neutrophils/Leukocytes Auto (Bld) [Pure # fraction] 5.0 E9/L Normal 2.0-7.5 [facility] Comment on above: Order Comment: Order Added by Ariel Expert. Performed By: #### 2 331682, 29047473, 5488919, 7931142, 83004802, 5549116, 2339182 ####[facility] [address] [place] [address] B hCG Qualon 10-19-2022 Beta hCG Ql Negative Normal [facility] Comment on above: Performed By: #### 2 099484, 54703282, 3215160, 9192450, 16642389, 5872120, 2607575 ####[facility] [address] [place] [address] BMPon 10-19-2022 Creatinine [Mass/Vol] 0.6 mg/dL Normal 0.5-1.3 [facility] Comment on above: Performed By: #### 2 374746, 29146906, 0214343, 4622304, 90836126, 0614158, 7602277 ####[facility] [address] [place] [address] Urea nitrogen [Mass/Vol] 19 mg/dL Normal 5-21 [facility] Comment on above: Performed By: #### 2 755093, 18029457, 8740942, 7757402, 91994902, 1694858, 6226271 ####[facility] [address] [place] [address] Urea nitrogen/Creatinine [Mass ratio] 32 No Units High 10-20 [facility] Comment on above: Performed By: #### 2 491893, 58051704, 5459154, 6258603, 59781619, 0149184, 3810660 ####[facility] [address] [place] [address] Anion gap [Moles/Vol] 12 mmol/L Normal 6-16 [facility] Comment on above: Performed By: #### 2 973025, 81520006, 0506995, 8685865, 50677329, 9425054, 5984867 ####[facility] [address] [place] [address] Calcium [Mass/Vol] 9.7 mg/dL Normal 8.9-11.1 [facility] Comment on above: Performed By: #### 2 514554, 53247243, 9020206, 9077617, 82545734, 3918222, 5684496 ####[facility] [address] [place] [address] Chloride [Moles/Vol] 101 mmol/L Normal 101-111 [facility] Comment on above: Performed By: #### 2 777159, 46327018, 7342103, 0398489, 82002194, 4967464, 2251413 ####[facility] [address] [place] [address] CO2 [Moles/Vol] 29 mmol/L Normal 21-31 [facility] Comment on above: Performed By: #### 2 495299, 54915784, 7410637, 7985865, 67561459, 7200058, 1123170 ####[facility] [address] [place] [address] Glucose [Mass/Vol] 126 mg/dL Normal 55-199 [facility] Comment on above: Result Comment: If t his glucose result represents a fasting glucose, interpretation should refer to the following reference range: 55-99 mg/dL Performed By: #### 2 180404, 62944857, 6959932, 9647557, 54597742, 1538206, 9081198 ####[facility] [address] [place] [address] Potassium [Moles/Vol] 3.8 mmol/L Normal 3.5-5.3 [facility] Comment on above: Performed By: #### 2 126018, 89403256, 6949022, 5009978, 23468271, 7703007, 7782530 ####[facility] [address] [place] [address] Sodium [Moles/Vol] 138 mmol/L Normal 135-145 [facility] Comment on above: Performed By: #### 2 510012, 47325430, 8555336, 5816047, 89924014, 4695962, 2590495 ####[facility] [address] [place] [address] CBC w/ Auto Diffon 3 Erythrocyte distribution width (RBC) [Ratio] 13.0 % Normal 10.9-14.2 [facility] Comment on above: Performed By: #### 2 801963, 30384388, 3254162, 4413218, 04041052, 1245876, 2215807 ####[address] [place] [address] Hematocrit (Bld) [Volume fraction] 39.6 % Normal 34.0-46.0 [facility] Comment on above: Performed By: #### 2 444677, 78144167, 5357866, 2649167, 94601994, 9635213, 5569141 ####[address] [place] [address] Hemoglobin (Bld) [Mass/Vol] 13.8 g/dL Normal 12.0-16.0 [facility] Comment on above: Performed By: #### 2 915200, 30658109, 4402224, 5011506, 90712608, 0232411, 5520510 ####[address] [address] MCH (RBC) [Entitic mass] 30.3 pg Normal 27.0-34.0 [facility] Comment on above: Performed By: #### 2 591357, 10908037, 5876840, 6046302, 77298210, 9021734, 8213953 ####[address] [address] MCHC (RBC) [Mass/Vol] 34.9 g/dL Normal 31.4-36.0 [facility] Comment on above: Performed By: #### 2 606630, 29663627, 6351477, 6065109, 51136376, 4603302, 7160850 ####[address] [address] MCV (RBC) [Entitic vol] 87.0 fL Normal 80.0-100.0 [facility] Comment on above: Performed By: #### 2 996133, 40148310, 4543962, 7443232, 86717237, 9916965, 6708121 ####[facility] [address] [place] [address] Platelet mean volume (Bld) [Entitic vol] 7.1 fL Normal 6.4-10.8 [facility] Comment on above: Performed By: #### 2 994535, 08902287, 9347105, 9699523, 89781013, 4365189, 5029960 ####[facility] [address] [place] [address] Platelets (Bld) [#/Vol] 268.0 E9/L Normal 150.0-500. 0 [facility] Comment on above: Performed By: #### 2 060982, 47560722, 2850403, 5790679, 26181165, 6019434, 6404261 ####[address] [address] RBC (Bld) [#/Vol] 4.6 E12/L Normal 4.3-5.9 [facility] Comment on above: Performed By: #### 2 073509, 16036644, 8393548, 4963642, 32461227, 6008506, 5392227 ####[address] [place] [address] WBC corrected for nucl RBC Auto (Bld) [#/Vol] 7.9 E9/L Normal 4.0-11.0 [facility] Comment on above: Performed By: #### 2 158555, 45193141, 5155985, 1302685, 00148075, 5223881, 3396348 ####[address] [place] [address] CHEMISTRYOrdered By: SYSTEM SYSTEM on 10-19-2022 Albumin [Mass/Vol] 4.1 g/dL Normal 3.3 - 5.0 gm/dL [facility] Remisol Albumin/Globulin [Mass ratio] 1.1 {ratio} Normal 1.1 - 2.2 [facility] Remisol ALP [Catalytic activity/Vol] 73 [iU]/d Normal 21 - 98 Int._Unit/ L [facility] Remisol ALT No additional P-5'-P [Catalytic activity/Vol] 16 [iU]/d Normal 6 - 46 Int._Unit/ L [facility] Remisol Anion gap [Moles/Vol] 12 mmol/L Normal 6 - 16 mEq/L [facility] Remisol AST [Catalytic activity/Vol] 17 [iU]/d Normal 5 - 43 Int._Unit/ L [facility]isol Bilirubin [Mass/Vol] 0.5 mg/dL Normal 0.0 - 1 .1 mg/dL [facility] Bilirubin.direct [Mass/Vol] mg/dL Normal 0.1 - 0.4 mg/dL [facility] Remisol Bilirubin.indirect [Mass or moles/Vol] Unable to Calculate mg/dL Invalid Interpretation Code 0.1 - 0.9 mg/dL [facility]isol Calcium [Mass/Vol] 9.7 mg/dL Normal 8.9 - 11. 1 mg/dL [facility] Chloride [Moles/Vol] 101 mmol/L Normal 101 - 1 11 mmol/L [facility] CO2 [Moles/Vol] 29 mmol/L Normal 21 - 31 mmol/L [facility] Creatinine [Mass/Vol] 0.6 mg/dL Normal 0.5 - 1.3 mg/dL [facility]isol GFR/1.73 sq M.predicted among blacks MDRD (S/P/Bld) [Vol rate/Area] mL/min/1.73 m2 Normal >=59mL/min /1.73 m2 [facility] Chem S GFR/1.73 sq M.predicted among non-blacks MDRD (S/P/Bld) [Vol rate/Area] mL/min/1.73 m2 Normal >=59mL/min /1.73 m2 FT [facility] S Globulin (S) [Mass/Vol] 3.6 g/dL Normal 1.4 - 4.0 gm/dL [facility] Remisol Glucose [Mass/Vol] 126 mg/dL Normal 55 - 199 mg/dL [facility]isol Lipase [Catalytic activity/Vol] 39 U/L Normal 13 - 58 unit/L [facility] Potassium [Moles/Vol] 3.8 mmol/L Normal 3.5 - 5.3 mmol/L [facility] Protein [Mass/Vol] 7.7 g/dL Normal 6.0 - 7.8 gm/dL [facility] Sodium [Moles/Vol] 138 mmol/L Normal 135 - 145 mmol/L [facility] Urea nitrogen [Mass/Vol] 19 mg/dL Normal 5 - 21 mg/dL [facility] Remisol Urea nitrogen/Creatinine [Mass ratio] 32 mg/mg High 10 - [address] Abdomen/Pelvis w/o Contra ston 10-19-2022 CT Abdomen/Pelvis w/o Contrast Normal [facility] Consent for Treatmenton 09-28 Consent for Treatment [id number]:12 [id number] Normal [facility] Discharge Instructionson Discharge Instructions [id number]:127 Normal [facility] ED Clinical Summaryon 2022 ED Clinical Summary Normal [facility] ED Patient Education Noteon 10-19-2022 ED Patient Education Note Normal [facility] ED Patient Summaryon 023 ED Patient Summary Normal [facility] HEMATOLOGYOrdered By: SYSTEM SYSTEM on 10-19-2022 Basophils/100 WBC (Bld) 0.9 % Normal 0.0 - 2.0 % [facility] HemeAutoSS Basophils/Leukocytes Auto (Bld) [Pure # fraction] 0.1 E9/L Normal 0.0 - 0.2 E9/L [facility] HemeAutoSS Eosinophils/100 WBC (Bld) 4.9 % Normal 0.0 - 8.0 % [facility] HemeAutoSS Eosinophils/Leukocytes Auto (Bld) [Pure # fraction] 0.4 E9/L Normal 0.0 - 0.5 E9/L [facility] HemeAutoSS Lymphocytes/100 WBC (Bld) 24.2 % Normal 14.0 - 50.0 % [facility] HemeAutoSS Lymphocytes/Leukocytes Auto (Bld) [Pure # fraction] 1.9 E9/L Normal 1.0 - 4.0 E9/L [facility] HemeAutoSS Monocytes/100 WBC (Bld) 7.6 % Normal 4.0 - 14.0 % [facility] HemeAutoSS Monocytes/Leukocytes Auto (Bld) [Pure # fraction] 0.6 E9/L Normal 0.2 - 1.0 E9/L [facility] HemeAutoSS Neutrophils/100 WBC (Bld) 62.4 % Normal 36.0 - 75.0 % [facility] HemeAutoSS Neutrophils/Leukocytes Auto (Bld) [Pure # fraction] 5.0 E9/L Normal 2.0 - 7.5 E9/L [facility] HemeAutoSS HEMATOLOGYOrdered By: Holly Soares on 10-19-2022 Erythrocyte distribution width (RBC) [Ratio] 13.0 % Normal 10.9 - 14.2 % [facility] HemeAutoSS Hematocrit (Bld) [Volume fraction] 39.6 % Normal 34.0 - 46.0 % [facility] HemeAutoSS Hemoglobin (Bld) [Mass/Vol] 13.8 g/dL Normal 12.0 - 16.0 gm/dL [facility] HemeAutoSS MCH (RBC) [Entitic mass] 30.3 pg Normal 27.0 - 34.0 pg [facility] HemeAutoSS MCHC (RBC) [Mass/Vol] 34.9 g/dL Normal 31.4 - 36.0 gm/dL [facility] HemeAutoSS MCV (RBC) [Entitic vol] 87.0 fL Normal 80.0 - 100.0 fL [facility] HemeAutoSS Platelet mean volume (Bld) [Entitic vol] 7.1 fL Normal 6.4 - 10.8 fL [facility] HemeAutoSS Platelets (Bld) [#/Vol] 268.0 E9/L Normal 150.0 - 500.0 E9/L [facility] HemeAutoSS RBC (Bld) [#/Vol] 4.6 E12/L Normal 4.3 - 5.9 E12/L [facility] HemeAutoSS WBC corrected for nucl RBC Auto (Bld) [#/Vol] 7.9 E9/L Normal 4.0 - 11.0 E9/L [facility] HemeAutoSS Hep Func Panelon 10-19-2022 Bilirubin.indirect [Mass or moles/Vol] UTC Abnormal 0.1-0.9 [facility] Comment on above: Result Comment: Resu lt verified by Discern Rule. Performed result UTC (Unable to Calculate) was sent as an Alpha code due the inability to calculate a valid numeric value. Performed By: #### 2 018002, 48400378, 2395179, 8196042, 06553176, 6087135, 1029000 ####[address] [place] [address] Albumin [Mass/Vol] 4.1 g/dL Normal 3.3-5.0 [facility] Comment on above: Performed By: #### 2 800291, 09624440, 7824711, 4724386, 96625885, 9070005, 9461213 ####[address] [place] [address] Albumin/Globulin (S) [Mass conc ratio] 1.1 Normal 1.1-2.2 [facility] Comment on above: Performed By: #### 2 684433, 19356690, 6159741, 2561741, 63809261, 9388726, 6822879 ####[address] [address] ALP [Catalytic activity/Vol] 73 Int._Unit/L Normal 21-98 [facility] Comment on above: Performed By: #### 2 602922, 16222848, 2766184, 0674634, 42572959, 4117213, 4559662 ####[address] [address] ALT No additional P-5'-P [Catalytic activity/Vol] 16 Int._Unit/L Normal 6-46 [facility] Comment on above: Performed By: #### 2 246953, 05124541, 5582886, 8369327, 34598542, 5189677, 2808739 ####[address] [place] [address] AST [Catalytic activity/Vol] 17 Int._Unit/L Normal 5-43 [facility] Comment on above: Performed By: #### 2 394486, 07515131, 5672771, 5079533, 27732297, 2985338, 1025752 ####[address] [place] [address] Bilirubin [Mass/Vol] 0.5 mg/dL Normal 0.0-1.1 [facility] Comment on above: Performed By: #### 2 780689, 61589227, 0997433, 8044050, 93396650, 8249074, 6484703 ####[facility] [address] [place] [address] Bilirubin.direct [Mass/Vol] mg/dL Normal 0.1-0.4 [facility] Comment on above: Performed By: #### 2 185206, 69246299, 0898446, 2312036, 10018821, 8178032, 0670897 ####[address] [address] Globulin (S) [Mass/Vol] 3.6 g/dL Normal 1.4-4.0 [facility] Comment on above: Performed By: #### 2 440328, 78044428, 5557436, 0231117, 25261095, 2293745, 9975915 ####[address] [place] [address] Protein [Mass/Vol] 7.7 g/dL Normal 6.0-7.8 [facility] Comment on above: Performed By: #### 2 711889, 52880821, 5543456, 9520173, 59718154, 1253429, 2065837 ####[address] [place] [address] Lipase Levelon 10-19-2022 Lipase [Catalytic activity/Vol] 39 U/L Normal 13-58 [facility] Comment on above: Performed By: #### 2 377908, 79935657, 6288408, 7113957, 23832967, 7625464, 5793957 ####[facility] [address] [place] [address] SEROLOGYOrdered By: Daisy gracia on 10-19-2022 Beta hCG Ql Negative (10/19/22 3:01 PM) Normal [facility] Man Sero UA With Cult Reflexon 2022 Bacteria LM Ql (Urine sed) 1+ /HPF Abnormal Trace [facility] Comment on above: Performed By: #### 1 7216982 ####[facility] [address] [place] [address] Bilirubin Ql (U) Negative Normal Negative [facility] Comment on above: Performed By: #### 1 5929830 ####[facility] [address] [place] [address] Clarity (U) CLOUDY Abnormal Clear [facility] Comment on above: Performed By: #### 1 6247819 ####[facility] [address] [place] [address] Color (U) YELLOW Normal Yellow [facility] Comment on above: Performed By: #### 1 4407371 ####[address] [address] Epithelial cells.squamous LM.HPF (Urine sed) [#/Area] 5-8 Normal 0-2 [facility] Comment on above: Performed By: #### 1 2238746 ####[facility] [address] [place] [address] Glucose Test strip (U) [Mass/Vol] Negative Normal Negative [facility] Comment on above: Performed By: #### 1 2126757 ####[facility] [address] [place] [address] Hemoglobin Ql (U) 3+ Abnormal Negative [facility] Comment on above: Performed By: #### 1 4961763 ####[facility] [address] [place] [address] Ketones (U) [Mass/Vol] Negative Normal Negative [facility] Comment on above: Performed By: #### 1 3310628 ####[facility] [address] [place] [address] [place].plasma/[place] .RBC (Bld) [Mass ratio] >75 Abnormal 0-3 [facility] Comment on above: Performed By: #### 1 5523928 ####[place] [address] [address] Nitrite Ql (U) Negative Normal Negative [facility] Comment on above: Performed By: #### 1 3091989 ####[address] [address] pH (U) 7.5 [pH] Invalid Interpretation Code 5.0-9.0 [facility] Comment on above: Performed By: #### 1 [id number] ####[address] [address] Protein (U) [Mass/Vol] Negative Normal Negative [facility] Comment on above: Performed By: #### 1 [id number] ####[address] [address] Specific gravity (U) [Rel density] 1.020 Invalid Interpretation Code 1.005-1.03 0 [facility] Comment on above: Performed By: #### 1 [id number] ####[place] [id number] Type of Urine collection method Clean Catch Normal [facility] Comment on above: Performed By: #### 1 [id number] ####[address] [address] Urobilinogen Qn (U) 0.2 {Diaz'U}/dL Normal 0.0-1.0 [facility] Comment on above: Performed By: #### 1 [id number] ####[address] [address] WBC Auto Ql (U) TRACE Abnormal Negative [facility] Comment on above: Performed By: #### 1 [id number] ####[address] [address] WBC LM.HPF (Urine sed) [#/Area] 0-5 Normal 0-5 [facility] Comment on above: Performed By: #### 1 [id number] ####[address] [address] URINALYSISOrdered By: Daisy Camejo on 10-19-2022 Bacteria LM Ql (Urine sed) 1+ /HPF Invalid Interpretation Code Trace/HPF [facility] UA Auto SS Bilirubin Ql (U) Negative (10/19/22 3:01 PM) Normal Negative [facility] UA Auto SS Clarity (U) Cloudy *ABN* (10/19/22 3:01 PM) Invalid Interpretation Code Clear [facility] UA Auto SS Color (U) Yellow (10/19/22 3:01 PM) Normal Yellow [facility] UA Auto SS Epithelial cells.squamous LM.HPF (Urine sed) [#/Area] 5-8 /HPF Normal 0-2/HPF [facility] UA Aut o SS Glucose Test strip (U) [Mass/Vol] Negative (10/19/22 3:01 PM) Normal Negative [facility] UA Auto SS Hemoglobin Ql (U) 3+ *ABN* (10/19/22 3:01 PM) Invalid Interpretation Code Negative [facility] UA Auto SS Ketones (U) [Mass/Vol] Negative (10/19/22 3:01 PM) Normal Negative [facility] UA Auto SS [place].plasma/[place] .RBC (Bld) [Mass ratio] >75 /HPF Invalid Interpretation Code 0-3/HPF [facility] UA Auto SS Nitrite Ql (U) Negative (10/19/22 3:01 PM) Normal Negative [facility] UA Auto SS pH (U) 7.5 *NA* (10/19/22 3:01 PM) Invalid Interpretation Code 5.0 - 9.0 [facility] UA Auto SS Protein (U) [Mass/Vol] Negative (10/19/22 3:01 PM) Normal Negative [facility] UA Auto SS Specific gravity (U) [Rel density] 1.020 *NA* (10/19/22 3:01 PM) Invalid Interpretation Code 1.005 - 1.030 [facility] UA Auto SS UA Spec Desc Clean Catch (10/19/22 3:01 PM) Normal [facility] UA Auto SS Urobilinogen Qn (U) 0.8194312 {Diaz'U}/dL Normal 0.0 - 1.0 EU/dL [facility] UA Auto SS WBC Auto Ql (U) Trace *ABN* (10/19/22 3:01 PM) Invalid Interpretation Code Negative [facility] UA Auto SS WBC LM.HPF (Urine sed) [#/Area] 0-5 /HPF Normal 0-5/HPF [facility] UA Auto SS XR Chest Single Viewon 10-19 XR Chest Single View Normal [facility] eGFRon 10-19-2022 GFR/1.73 sq M.predicted among blacks MDRD (S/P/Bld) [Vol rate/Area] mL/min/{1.73_m2} Normal >=59 [facility] Comment on above: Order Comment: Order added by Discern Expert. Result Comment: eGFR is race adjusted. AA=. Performed By: #### 2 [id number], [id number], 8611209, 9916749, 99940938, 3137781, 1592520 ####[facility] [address] [place] [address] GFR/1.73 sq M.predicted among non-blacks MDRD (S/P/Bld) [Vol rate/Area] mL/min/{1.73_m2} Normal >=59 [facility] Comment on above: Order Comment: Order added by Discern Expert. Result Comment: [employer] aiyana kidney disease could be indicated at eGFR's of less than 60 mL/min/1.73m2. Kidney failure is indicated at less than 15 mL/min/1.73m2. Performed By: #### 2 830560, [id number], 4994194, 7914378, 10056852, 1102413, 4897555 ####[facility] [address] [place] [address] CT KIDNEY STONEon 10-16-2022 CT KIDNEY STONE EXAMINATION: CT KIDNEY STONE HISTORY: F, 47 y/o , Flank pain, kidney stone suspected COMPARISON: 05/14/2022 TECHNIQUE: Computed tomography of the abdomen and pelvis is performed in the axial projection from the lung bases to the pubic symphysis. Sagittal and coronal reconstructed images are performed. Dose reduction techniques were achieved by using automated exposure control and/or adjustment of mA and/or KVP according to patient size and/or use of iterative reconstruction technique. . FINDINGS: Lung bases: The lung bases are clear. There is no pleural effusion. The visualized portions of the heart are unremarkable. Evaluation of the solid abdominal organs is limited in the absence of intravenous contrast. Liver: The dome of the liver is not imaged. The remainder of the liver is unremarkable. Gallbladder: There has been a cholecystectomy. Spleen: The spleen is normal. Pancreas: The pancreas is normal. Adrenal glands: The adrenal glands are normal bilaterally. Right kidney: The kidney is normal in size. There is a punctate nonobstructing calculus in the upper pole of the right kidney. There is no hydronephrosis. There is a tiny calcification within the right side of the pelvis which could reflect a distal ureteral calculus versus a phlebolith. Left kidney: The kidney is normal in size. There is no renal calculus or hydronephrosis. Stomach: The stomach is normal. Small bowel: The small bowel is normal. Large bowel: The colon is normal. Appendix: The appendix is visualized, and is normal. Aorta: The aorta is normal IVC: The IVC is normal. Retroperitoneum: Normal retroperitoneum. Bladder: The bladder is nearly empty at the time of scanning. Pelvic organs: There has been a hysterectomy. There are multiple phleboliths within the pelvis. Abdominal wall: Normal abdominal wall. Osseous structures: Normal bony structures. IMPRESSION: Punctate nonobstructing calculus in the upper pole of the right kidney. No hydronephrosis. Tiny calcification within the right pelvis, which I suspect represents a phlebolith. However, this could potentially be within the distal right ureter. There are multiple phleboliths within the pelvis. No small bowel obstruction. Normal appendix. Postoperative changes of cholecystectomy. Workstation ID: [id number] Dictated by: SANDI HERRERA on ThuOct 16, 2022 2:54:14 AM EDT Transcribed by: SANDI HERRERA on ThuOct 16, 2022 2:54:14 AM EDT Finalized by: SANDI HERRERA on ThuOct 16, 2022 2:54:14 AM EDT Normal [facility] Comment on above: Order Comment: Injur y/Trauma or Illness?:Illness/Other How long have you had these symptoms (acute/chronic)?:Acute Reason for exam?:Flank pain, kidney stone suspected Type of Exam?:Initial Additional signs and symptoms?: Coding Summary.on 10-10-2022 Coding Summary. Normal [facility] Discharge Instructionson Discharge Instructions [id number]:1 27 [facility] ED Clinical Summaryon 2022 ED Clinical Summary Normal [facility] ED Note-Physicianon 10-11-19 ED Note-Physician Normal [facility] Comment on above: Result Comment: Elec tronically Signed By: Vivek BENJAMIN, Debbie\.br\Date and Time Signed: 10/09/22 23:10 EDT ED Patient Education Noteon 10-10-2022 ED Patient Education Note Normal [facility] ED Patient Summaryon 023 ED Patient Summary Normal [facility] US Renalon 10-10-2022 US Renal Normal [facility] Consent for Treatmenton 09-27 Consent for Treatment [id number]#1.00CD:12 7 Normal [facility] SEROLOGYOrdered By: Linda edwards on 10-09-2022 HCG.beta subunit (U) [Moles/Vol] Negative Normal [facility] Man Sero U BetaHcg Qualon 10-09-2022 HCG.beta subunit (U) [Moles/Vol] Negative Normal [facility] Comment on above: Performed By: #### 1 [id number], [id number] ####[facility] [address] [place] [address] UA With Cult Reflexon 2022 Bacteria LM Ql (Urine sed) TRACE Normal Trace [facility] Comment on above: Performed By: #### 1 8698214, [id number] ####[facility] [address] [place] [address] Epithelial cells.squamous LM.HPF (Urine sed) [#/Area] 3-4 Normal 0-2 [facility] Comment on above: Performed By: #### 1 1366624, [id number] ####[facility] [address] [place] [address] [place].plasma/[place] .RBC (Bld) [Mass ratio] >75 Abnormal 0-3 [facility] Comment on above: Performed By: #### 1 9821093, [id number] ####[facility] [address] [place] [address] WBC LM.HPF (Urine sed) [#/Area] 0-5 Normal 0-5 [facility] Comment on above: Performed By: #### 1 5814405, [id number] ####[address] [address] Bilirubin Ql (U) Negative Normal Negative [facility] Comment on above: Performed By: #### 1 7781213, 42554805 ####[address] [address] Clarity (U) SL CLOUDY Abnormal Clear [facility] Comment on above: Performed By: #### 1 3428022, [id number] ####[address] [address] Color (U) RED Abnormal Yellow [facility] Comment on above: Performed By: #### 1 9999997, 45330478 ####[address] [address] Glucose Test strip (U) [Mass/Vol] 3+ Abnormal Negative [facility] Comment on above: Performed By: #### 1 6398410, [id number] ####[address] [address] Hemoglobin Ql (U) 3+ Abnormal Negative [facility] Comment on above: Performed By: #### 1 7605457, 48558993 ####[address] [address] Ketones (U) [Mass/Vol] Negative Normal Negative [facility] Comment on above: Performed By: #### 1 2255320, 45508460 ####[address] [address] Nitrite Ql (U) Negative Normal Negative [facility] Comment on above: Performed By: #### 1 3694866, 92116902 ####[address] [address] pH (U) 5.5 [pH] Invalid Interpretation Code 5.0-9.0 [facility] Comment on above: Performed By: #### 1 6237693, 31723593 ####[place] [address] Protein (U) [Mass/Vol] Negative Normal Negative [facility] Comment on above: Performed By: #### 1 2014353, 84377433 ####[place] [address] Specific gravity (U) [Rel density] 1.015 Invalid Interpretation Code 1.005-1.03 0 [facility] Comment on above: Performed By: #### 1 9384471, 24770773 ####[place] [address] Type of Urine collection method Clean Catch Normal [facility] Comment on above: Performed By: #### 1 2477984, 39621481 ####[place] [address] Urobilinogen Qn (U) 0.2 {Diaz'U}/dL Normal 0.0-1.0 [facility] Comment on above: Performed By: #### 1 5896799, 64223223 ####[place] [address] WBC Auto Ql (U) TRACE Abnormal Negative [facility] Comment on above: Performed By: #### 1 5972030, [id number] ####[place] [address] URINALYSISOrdered By: Linda Montilla on 10-09-2022 Bacteria LM Ql (Urine sed) Trace /HPF Normal Trace/HPF [facility] UA Auto SS Bilirubin Ql (U) Negative (10/09/22 8:06 PM) Normal Negative [facility] UA Auto SS Clarity (U) Slightly Cloudy *ABN* (10/09/22 8:06 PM) Invalid Interpretation Code Clear [facility] UA Auto SS Color (U) Red *ABN* (10/09/22 8:06 PM) Invalid Interpretation Code Yellow [facility] UA Auto SS Epithelial cells.squamous LM.HPF (Urine sed) [#/Area] 3-4 /HPF Normal 0-2/HPF [facility]A Aut o SS Glucose Test strip (U) [Mass/Vol] 3+ *ABN* (10/09/22 8:06 PM) Invalid Interpretation Code Negative [facility] UA Auto SS Hemoglobin Ql (U) 3+ *ABN* (10/09/22 8:06 PM) Invalid Interpretation Code Negative [facility] UA Auto SS Ketones (U) [Mass/Vol] Negative (10/09/22 8:06 PM) Normal Negative [facility] UA Auto SS [place].plasma/[place] .RBC (Bld) [Mass ratio] >75 /HPF Invalid Interpretation Code 0-3/HPF [facility] UA Auto SS Nitrite Ql (U) Negative (10/09/22 8:06 PM) Normal Negative [facility] UA Auto SS pH (U) 5.5 *NA* (10/09/22 8:06 PM) Invalid Interpretation Code 5.0 - 9.0 [facility] UA Auto SS Protein (U) [Mass/Vol] Negative (10/09/22 8:06 PM) Normal Negative [facility] UA Auto SS Specific gravity (U) [Rel density] 1.015 *NA* (10/09/22 8:06 PM) Invalid Interpretation Code 1.005 - 1.030 [facility] UA Auto SS UA Spec Desc Clean Catch (10/09/22 8:06 PM) Normal [facility] UA Auto SS Urobilinogen Qn (U) 0.9080545 {Diaz'U}/dL Normal 0.0 - 1.0 EU/dL [facility]A Auto SS WBC Auto Ql (U) Trace *ABN* (10/09/22 8:06 PM) Invalid Interpretation Code Negative [facility] UA Auto SS WBC LM.HPF (Urine sed) [#/Area] 0-5 /HPF Normal 0-5/HPF [facility] UA Auto SS Coding Summary.on 09-25-2022 Coding Summary. Normal [facility] Auto Diffon 09-22-2022 Basophils/100 WBC (Bld) 1.0 % Normal 0.0-2.0 [facility] Comment on above: Order Comment: Order Added by Discern Expert. Performed By: #### 2 656085, 38508367, 0698520, 1057472 ####[facility] [address] [place] [address] Basophils/Leukocytes Auto (Bld) [Pure # fraction] 0.1 E9/L Normal 0.0-0.2 [facility] Comment on above: Order Comment: Order Added by Discern Expert. Performed By: #### 2 342138, 42001525, 9609946, 2320920 ####[address] [address] Eosinophils/100 WBC (Bld) 8.3 % High 0.0-8.0 [facility] Comment on above: Order Comment: Order Added by Discern Expert. Performed By: #### 2 768179, 63427238, 1796056, 8734305 ####[address] [address] Eosinophils/Leukocytes Auto (Bld) [Pure # fraction] 0.7 E9/L High 0.0-0.5 [facility] Comment on above: Order Comment: Order Added by Discern Expert. Performed By: #### 2 835694, 91314544, 7245180, 6931388 ####[address] [address] Lymphocytes/100 WBC (Bld) 24.9 % Normal 14.0-50.0 [facility] Comment on above: Order Comment: Order Added by Discern Expert. Performed By: #### 2 728624, 54028322, 6192038, 6510616 ####[address] [address] Lymphocytes/Leukocytes Auto (Bld) [Pure # fraction] 2.1 E9/L Normal 1.0-4.0 [facility] Comment on above: Order Comment: Order Added by Discern Expert. Performed By: #### 2 988329, 87357701, 6147288, 9209377 ####[place] [address] [place] [address] Monocytes/100 WBC (Bld) 7.4 % Normal 4.0-14.0 [facility] Comment on above: Order Comment: Order Added by Discern Expert. Performed By: #### 2 076332, 72026966, 0475038, 9019409 ####[place] [address] [place] [address] Monocytes/Leukocytes Auto (Bld) [Pure # fraction] 0.6 E9/L Normal 0.2-1.0 [facility] Comment on above: Order Comment: Order Added by Discern Expert. Performed By: #### 2 748080, 89299207, 7602733, 3555152 ####[place] [address] [place] [address] Neutrophils/100 WBC (Bld) 58.4 % Normal 36.0-75.0 [facility] Comment on above: Order Comment: Order Added by Discern Expert. Performed By: #### 2 027372, 05787882, 4403683, 8602095 ####[place] [address] [place] [address] Neutrophils/Leukocytes Auto (Bld) [Pure # fraction] 4.8 E9/L Normal 2.0-7.5 [facility] Comment on above: Order Comment: Order Added by Discern Expert. Performed By: #### 2 877598, 12886546, 7696027, 1651697 ####[place] [address] [place] [address] BMPon 09-22-2022 Creatinine [Mass/Vol] 0.6 mg/dL Normal 0.5-1.3 [facility] Comment on above: Performed By: #### 2 458367, 63376203, 7277093, 6978263 ####[place] [address] [place] [address] Urea nitrogen [Mass/Vol] 20 mg/dL Normal 5-21 [facility] Comment on above: Performed By: #### 2 220403, 36736809, 1618649, 8523856 ####[facility] [address] [place] [address] Urea nitrogen/Creatinine [Mass ratio] 33 No Units High 10-20 [facility] Comment on above: Performed By: #### 2 473525, 23653831, 1004922, 0921266 ####[facility] [address] [place] [address] Anion gap [Moles/Vol] 13 mmol/L Normal 6-16 [facility] Comment on above: Performed By: #### 2 359814, 33528026, 1716479, 8592274 ####[facility] [address] [place] [address] Calcium [Mass/Vol] 9.3 mg/dL Normal 8.9-11.1 [facility] Comment on above: Performed By: #### 2 477406, 19384529, 0281345, 4631935 ####[facility] [address] [place] [address] Chloride [Moles/Vol] 102 mmol/L Normal 101-111 [facility] Comment on above: Performed By: #### 2 830746, 72292899, 9023834, 6344575 ####[facility] [address] [place] [address] CO2 [Moles/Vol] 27 mmol/L Normal 21-31 [facility] Comment on above: Performed By: #### 2 643313, 46238867, 3430673, 4522320 ####[facility] [address] [place] [address] Glucose [Mass/Vol] 180 mg/dL Normal 55-199 [facility] Comment on above: Result Comment: If t his glucose result represents a fasting glucose, interpretation should refer to the following reference range: 55-99 mg/dL Performed By: #### 2 276990, 98769829, 3640965, 0637520 ####[facility] [address] [place] [address] Potassium [Moles/Vol] 3.7 mmol/L Normal 3.5-5.3 [facility] Comment on above: Performed By: #### 2 965656, 89913028, 6064597, 8474679 ####[facility] [address] [place] [address] Sodium [Moles/Vol] 138 mmol/L Normal 135-145 [facility] Comment on above: Performed By: #### 2 616766, 52580855, 5028976, 9172231 ####[address] [address] CBC w/ Auto Diffon Erythrocyte distribution width (RBC) [Ratio] 13.4 % Normal 10.9-14.2 [facility] Comment on above: Performed By: #### 2 045849, 26094620, 2834368, 2512643 ####[place] [address]457 Hematocrit (Bld) [Volume fraction] 39.9 % Normal 34.0-46.0 [facility] Comment on above: Performed By: #### 2 849685, 84678836, 1268236, 3463604 ####[place] [address] Hemoglobin (Bld) [Mass/Vol] 13.6 g/dL Normal 12.0-16.0 [facility] Comment on above: Performed By: #### 2 925419, 22039439, 5292695, 6481924 ####[address] [address] MCH (RBC) [Entitic mass] 29.9 pg Normal 27.0-34.0 [facility] Comment on above: Performed By: #### 2 312345, 42530438, 8607974, 3509616 ####[facility] [address] [place] [address] MCHC (RBC) [Mass/Vol] 34.0 g/dL Normal 31.4-36.0 [facility] Comment on above: Performed By: #### 2 387947, 19232310, 0083026, 4822877 ####[address] [address] MCV (RBC) [Entitic vol] 87.8 fL Normal 80.0-100.0 [facility] Comment on above: Performed By: #### 2 877868, 86654202, 2196035, 8729542 ####[facility] [address] [place] [address] Platelet mean volume (Bld) [Entitic vol] 7.3 fL Normal 6.4-10.8 [facility] Comment on above: Performed By: #### 2 749895, 69915681, 4995888, 4850400 ####[facility] [address] [place] [address] Platelets (Bld) [#/Vol] 263.0 E9/L Normal 150.0-500. 0 [facility] Comment on above: Performed By: #### 2 565263, 73695496, 3406157, 1816399 ####[place] [address] [place] [address] RBC (Bld) [#/Vol] 4.6 E12/L Normal 4.3-5.9 [facility] Comment on above: Performed By: #### 2 248199, 28752438, 4275661, 1514552 ####[facility] [address] [place] [address] WBC corrected for nucl RBC Auto (Bld) [#/Vol] 8.3 E9/L Normal 4.0-11.0 [facility] Comment on above: Performed By: #### 2 722763, 28689743, 9714090, 3273594 ####[facility] [address] [place] [address] CHEMISTRYOrdered By: SYSTEM SYSTEM on 09-22-2022 Anion gap [Moles/Vol] 13 mmol/L Normal 6 - 16 mEq/L [facility] Remisol Calcium [Mass/Vol] 9.3 mg/dL Normal 8.9 - 11. 1 mg/dL [facility] Remisol Chloride [Moles/Vol] 102 mmol/L Normal 101 - 1 11 mmol/L [facility] Remisol CO2 [Moles/Vol] 27 mmol/L Normal 21 - 31 mmol/L [facility] Remisol Creatinine [Mass/Vol] 0.6 mg/dL Normal 0.5 - 1.3 mg/dL [facility] Remisol GFR/1.73 sq M.predicted among blacks MDRD (S/P/Bld) [Vol rate/Area] mL/min/1.73 m2 Normal >=59mL/min /1.73 m2 [facility] Chem S GFR/1.73 sq M.predicted among non-blacks MDRD (S/P/Bld) [Vol rate/Area] mL/min/1.73 m2 Normal >=59mL/min /1.73 m2 [facility] Chem S Glucose [Mass/Vol] 180 mg/dL Normal 55 - 199 mg/dL [facility] Remisol Potassium [Moles/Vol] 3.7 mmol/L Normal 3.5 - 5.3 mmol/L [facility] Remisol Sodium [Moles/Vol] 138 mmol/L Normal 135 - 145 mmol/L [facility] Remisol Urea nitrogen [Mass/Vol] 20 mg/dL Normal 5 - 21 mg/dL [facility] Remisol Urea nitrogen/Creatinine [Mass ratio] 33 mg/mg High 10 - 20 [facility] Remisol Consent for Treatmenton 08-28 Consent for Treatment [id number]:12 7 Normal [facility] Discharge Instructionson Discharge Instructions [id number]:1 27 Normal [facility] ED Clinical Summaryon 2022 ED Clinical Summary Normal [facility] ED Note-Nursingon 09-22-2022 ED Note-Nursing 0015: time patient brought in the room Normal [facility] ED Note-Physicianon 09-23-19 ED Note-Physician Normal [facility] Comment on above: Result Comment: Elec tronically Signed By: Sybil Muhammad DO\Date and Time Signed: 09/22/22 02:09 EDT ED Patient Education Noteon 09-22-2022 ED Patient Education Note Normal [facility] ED Patient Summaryon 023 ED Patient Summary Normal [facility] HEMATOLOGYOrdered By: SYSTEM SYSTEM on 09-22-2022 Basophils/100 WBC (Bld) 1.0 % Normal 0.0 - 2.0 % [facility] HemeAutoSS Basophils/Leukocytes Auto (Bld) [Pure # fraction] 0.1 E9/L Normal 0.0 - 0.2 E9/L [facility] HemeAutoSS Eosinophils/100 WBC (Bld) 8.3 % High 0.0 - 8.0 % [facility] HemeAutoSS Eosinophils/Leukocytes Auto (Bld) [Pure # fraction] 0.7 E9/L High 0.0 - 0.5 E9/L [facility] HemeAutoSS Lymphocytes/100 WBC (Bld) 24.9 % Normal 14.0 - 50.0 % [facility] HemeAutoSS Lymphocytes/Leukocytes Auto (Bld) [Pure # fraction] 2.1 E9/L Normal 1.0 - 4.0 E9/L [facility] HemeAutoSS Monocytes/100 WBC (Bld) 7.4 % Normal 4.0 - 14.0 % [facility] HemeAutoSS Monocytes/Leukocytes Auto (Bld) [Pure # fraction] 0.6 E9/L Normal 0.2 - 1.0 E9/L [facility] HemeAutoSS Neutrophils/100 WBC (Bld) 58.4 % Normal 36.0 - 75.0 % [facility] HemeAutoSS Neutrophils/Leukocytes Auto (Bld) [Pure # fraction] 4.8 E9/L Normal 2.0 - 7.5 E9/L [facility] HemeAutoSS HEMATOLOGYOrdered By: Clau Muñoz on 09-22-2022 Erythrocyte distribution width (RBC) [Ratio] 13.4 % Normal 10.9 - 14.2 % [facility] HemeAutoSS Hematocrit (Bld) [Volume fraction] 39.9 % Normal 34.0 - 46.0 % [facility] HemeAutoSS Hemoglobin (Bld) [Mass/Vol] 13.6 g/dL Normal 12.0 - 16.0 gm/dL [facility] HemeAutoSS MCH (RBC) [Entitic mass] 29.9 pg Normal 27.0 - 34.0 pg [facility] HemeAutoSS MCHC (RBC) [Mass/Vol] 34.0 g/dL Normal 31.4 - 36.0 gm/dL [facility] HemeAutoSS MCV (RBC) [Entitic vol] 87.8 fL Normal 80.0 - 100.0 fL [facility] HemeAutoSS Platelet mean volume (Bld) [Entitic vol] 7.3 fL Normal 6.4 - 10.8 fL [facility] HemeAutoSS Platelets (Bld) [#/Vol] 263.0 E9/L Normal 150.0 - 500.0 E9/L [facility] HemeAutoSS RBC (Bld) [#/Vol] 4.6 E12/L Normal 4.3 - 5.9 E12/L [facility] HemeAutoSS WBC corrected for nucl RBC Auto (Bld) [#/Vol] 8.3 E9/L Normal 4.0 - 11.0 E9/L [facility] HemeAutoSS UA With Cult Reflexon 2022 Bilirubin Ql (U) Negative Normal Negative [facility] Comment on above: Performed By: #### 1 6533214 ####[facility] [address] [place] [address] Clarity (U) CLOUDY Abnormal Clear [facility] Comment on above: Performed By: #### 1 [id number] ####[address] [address] Color (U) YELLOW Normal Yellow [facility] Comment on above: Performed By: #### 1 5373865 ####[address] [address] Epithelial cells.squamous LM.HPF (Urine sed) [#/Area] 0-2 Normal 0-2 [facility] Comment on above: Performed By: #### 1 7723400 ####[facility] [address] [place] [address] Glucose Test strip (U) [Mass/Vol] Negative Normal Negative [facility] Comment on above: Performed By: #### 1 4423070 ####[facility] [address] [place] [address] Hemoglobin Ql (U) 3+ Abnormal Negative [facility] Comment on above: Performed By: #### 1 0311149 ####[facility] [address] [place] [address] Ketones (U) [Mass/Vol] TRACE Abnormal Negative Fi [facility] Comment on above: Performed By: #### 1 [id number] ####[address] [address] [place].plasma/[place] .RBC (Bld) [Mass ratio] >75 Abnormal 0-3 [facility] Comment on above: Performed By: #### 1 1919258 ####[address] [address] Mucus Ql (Urine sed) TRACE Normal Fish [facility] Comment on above: Performed By: #### 1 5998716 ####[address] [address] Nitrite Ql (U) Negative Normal Negative [facility] Comment on above: Performed By: #### 1 0382040 ####[address] [address] pH (U) 6.0 [pH] Invalid Interpretation Code 5.0-9.0 [facility] Comment on above: Performed By: #### 1 [id number] ####[address] [address] Protein (U) [Mass/Vol] TRACE Abnormal Negative [facility] Comment on above: Performed By: #### 1 [id number] ####[address] [address] Specific gravity (U) [Rel density] >=1.030 Invalid Interpretation Code 1.005-1.03 0 [facility] Comment on above: Performed By: #### 1 [id number] ####[address] [address] Type of Urine collection method Clean Catch Normal [facility] Comment on above: Performed By: #### 1 [id number] ####[address] [address] Urobilinogen Qn (U) 1.0 {Diaz'U}/dL Normal 0.0-1.0 [facility] Comment on above: Performed By: #### 1 [id number] ####[address] [place] [address] WBC Auto Ql (U) TRACE Abnormal Negative [facility] Comment on above: Performed By: #### 1 [id number] ####[facility] [address] [place] [address] WBC casts LM.LPF (Urine sed) [#/Area] 0-3 Normal [facility] Comment on above: Performed By: #### 1 [id number] ####[facility] [address] [place] [address] WBC LM.HPF (Urine sed) [#/Area] 0-5 Normal 0-5 [facility] Comment on above: Performed By: #### 1 [id number] ####[address] [place] [address] XR Abdomen 1 Viewon 09-23-19 XR Abdomen 1 View Normal [facility] eGFRon 09-22-2022 GFR/1.73 sq M.predicted among blacks MDRD (S/P/Bld) [Vol rate/Area] mL/min/{1.73_m2} Normal >=59 [facility] Comment on above: Order Comment: Order added by Discern Expert. Result Comment: eGFR is race adjusted. AA=. Performed By: #### 2 [id number], [id number], [id number], [id number] ####[facility] [address] [place] [address] GFR/1.73 sq M.predicted among non-blacks MDRD (S/P/Bld) [Vol rate/Area] mL/min/{1.73_m2} Normal >=59 [facility] Comment on above: Order Comment: Order added by Discern Expert. Result Comment: Travel Services Professional aiyana kidney disease could be indicated at eGFR's of less than 60 mL/min/1.73m2. Kidney failure is indicated at less than 15 mL/min/1.73m2. Performed By: #### 2 [id number], [id number], [id number], [id number] ####[facility] [address] [place] [address] Automated erythrocytes count in urine sediment (number/area)Ordered By: Gely Sprague on 09-21-2022 RBC Auto (Urine sed) [#/Area] Innumerable [HPF] 0-4 [facility] Automated leukocytes count i n urine sediment (number/area)Ordered By: eGly Sprague on 09-21-2022 WBC Auto (Urine sed) [#/Area] 5-9 [HPF] 0-4 [facility] Bilirubin Test strip Ql (U)O rdered By: Gely Sprague on 09-21-2022 Bilirubin Ql (U) Negative Negative [facility] Color Auto (U)Ordered By: Nhi Sprague on 09-21-2022 Color (U) Yellow Yellow [facility] Dipstick and Microscopicon 0 09-21-2022 Appearance (U) Clear Normal Clear [facility] Comment on above: Order Comment: Name Collection Type:: Clean-Voided Midstream Performed By: #### A DDONUAPLUS, CUU ####[id number] [place] Bacteria,Urine None Seen Normal None Seen [facility] Comment on above: Order Comment: Name Collection Type:: Clean-Voided Midstream Performed By: #### A DDONUAPLUS, CUU ####[address] [address] [place] Bilirubin,Urine Negative Normal Negative [facility] Comment on above: Order Comment: Name Collection Type:: Clean-Voided Midstream Performed By: #### A DDONUAPLUS, CUU ####[address] [address] [place] Color (U) Yellow Normal Yellow [facility] Comment on above: Order Comment: Name Collection Type:: Clean-Voided Midstream Performed By: #### A DDONUAPLUS, CUU ####[address] [address] [place] Glucose Ql (U) Normal Normal Normal [facility] Comment on above: Order Comment: Name Collection Type:: Clean-Voided Midstream Performed By: #### A DDONUAPLUS, CUU ####[address] [address] [place] Hyaline Casts,Urine 0-8 Normal 0-8 [facility] Comment on above: Order Comment: Name Collection Type:: Clean-Voided Midstream Result Comment: PERF ORMED BY:[address] [address] [place], [place] [phone] MEDICAL DIRECTORNATALIA MIKE M.D. Performed By: #### A DDONUAPLUS, CUU ####[id number] [place] Ketones Ql (U) Trace High Negative [facility] Comment on above: Order Comment: Name Collection Type:: Clean-Voided Midstream Performed By: #### A DDONUAPLUS, CUU ####[id number] [place] Leukocyte esterase Test strip Ql (U) 2+ High Negative [facility] Comment on above: Order Comment: Name Collection Type:: Clean-Voided Midstream Performed By: #### A DDONUAPLUS, CUU ####[id number] [place] Nitrite,Urine Negative Normal Negative [facility] Comment on above: Order Comment: Name Collection Type:: Clean-Voided Midstream Performed By: #### A DDONUAPLUS, CUU ####[id number] [place] Occult Blood,Urine 3+ High Negative [facility] Comment on above: Order Comment: Name Collection Type:: Clean-Voided Midstream Result Comment: PERF ORMED BY:[address] [place], [place] [id number] MEDICAL DIRECTORNATALIA MIKE M.D. Performed By: #### A DDONUAPLUS, CUU ####[address] [address] [place] pH (U) 5.5 [pH] Normal 5.0-9.0 [facility] Comment on above: Order Comment: Name Collection Type:: Clean-Voided Midstream Performed By: #### A DDONUAPLUS, CUU ####[address] [address] [place] Protein,Urine Trace High Negative [facility] Comment on above: Order Comment: Name Collection Type:: Clean-Voided Midstream Performed By: #### A DDONUAPLUS, CUU ####[address] [address] [place] RBC,Urine Innumerable High 0-4 [facility] Comment on above: Order Comment: Name Collection Type:: Clean-Voided Midstream Performed By: #### A DDONUAPLUS, CUU ####[address] [address] [place] Specificy [place],Urine 1.039 High 1.001-1.[address] [facility] Comment on above: Order Comment: Name Collection Type:: Clean-Voided Midstream Performed By: #### A DDONUAPLUS, CUU ####[address] [address] [place] Squamous Epithelial Cell,Urine 3-4 High 0-2 [facility] Comment on above: Order Comment: Name Collection Type:: Clean-Voided Midstream Performed By: #### A DDONUAPLUS, CUU ####[address] [address] [place] Urobilinogen,Urine Normal Normal Normal [facility] Comment on above: Order Comment: Name Collection Type:: Clean-Voided Midstream Performed By: #### A DDONUAPLUS, CUU ####[address] [address] [place] WBC,Urine 5-9 High 0-4 [facility] Comment on above: Order Comment: Name Collection Type:: Clean-Voided Midstream Performed By: #### A DDONUAPLUS, CUU ####[address] [address] [place] Ketones Auto test strip (U) [Mass/Vol]Ordered By: Gely Sprague on 09-21-2022 Ketones (U) [Mass/Vol] Trace Negative [facility] - UrinalysisOrder ed By: Gely Sprague on 09-21-2022 Hyaline casts LM Ql (Urine sed) 0-8 [LPF] 0-8 [facility] Nitrite Test strip Ql (U)Ord ered By: Gely Sprague on 09-21-2022 Nitrite Ql (U) Negative Negative [facility] Protein Auto test strip (U) [Mass/Vol]Ordered By: Gely Sprague on 09-21-2022 Protein (U) [Mass/Vol] Trace mg/dL Negative F [facility] Specific gravity Auto test s trip (U) [Rel density]Ordered By: Gely Sprague on 09-21-2022 Specific gravity (U) [Rel density] 1.039 1.001-1.[address] [facility] Squamous epithelial cells de tection in urine sediment by light microscopyOrdered By: Gely Sprague on 09-21-2022 Epithelial cells.squamous LM Ql (Urine sed) 3-4 [HPF] 0-2 [facility] URINALYSISOrdered By: Clau Muñoz on 09-21-2022 Bilirubin Ql (U) Negative (09/21/22 11:09 PM) Normal Negative [facility] UA Auto SS Clarity (U) Cloudy *ABN* (09/21/22 11:09 PM) Invalid Interpretation Code Clear [facility] UA Auto SS Color (U) Yellow (09/21/22 11:09 PM) Normal Yellow [facility] UA Auto SS Epithelial cells.squamous LM.HPF (Urine sed) [#/Area] 0-2 /HPF Normal 0-2/HPF [facility] UA Aut o SS Glucose Test strip (U) [Mass/Vol] Negative (09/21/22 11:09 PM) Normal Negative [facility] UA Auto SS Hemoglobin Ql (U) 3+ *ABN* (09/21/22 11:09 PM) Invalid Interpretation Code Negative [facility] UA Auto SS Ketones (U) [Mass/Vol] Trace *ABN* (09/21/22 11:09 PM) Invalid Interpretation Code Negative [facility] UA Auto SS [place].plasma/[place] .RBC (Bld) [Mass ratio] >75 /HPF Invalid Interpretation Code 0-3/HPF [facility] UA Auto SS Mucus Ql (Urine sed) Trace (09/21/22 11:09 PM) Normal [facility] UA Auto SS Nitrite Ql (U) Negative (09/21/22 11:09 PM) Normal Negative [facility] UA Auto SS pH (U) 6.0 *NA* (09/21/22 11:09 PM) Invalid Interpretation Code 5.0 - 9.0 [facility] UA Auto SS Protein (U) [Mass/Vol] Trace *ABN* (09/21/22 11:09 PM) Invalid Interpretation Code Negative [facility] UA Auto SS Specific gravity (U) [Rel density] >=1.030 *NA* (09/21/22 11:09 PM) Invalid Interpretation Code 1.005 - 1.030 [facility] UA Auto SS UA Spec Desc Clean Catch (09/21/22 11:09 PM) Normal [facility] UA Auto SS Urobilinogen Qn (U) 1.1517121 {Diaz'U}/dL Normal 0.0 - 1.0 EU/dL [facility] UA Auto SS WBC Auto Ql (U) Trace *ABN* (09/21/22 11:09 PM) Invalid Interpretation Code Negative [facility] UA Auto SS WBC casts LM.LPF (Urine sed) [#/Area] 0-3 (09/21/22 11:09 PM) Normal [facility] UA Auto SS WBC LM.HPF (Urine sed) [#/Area] 0-5 /HPF Normal 0-5/HPF [facility] UA Auto SS Urine Cultureon 09-21-2022 Bacteria identified Cx Nom (U) No Growth 2 Days PERFORMED BY: [id number] [place] [address] PATHOLOGIST [employer] NATALIA MIKE M.D. Normal [facility] Comment on above: Performed By: #### A DDONUAPLUS, CUU ####[id number] [place] Urine bacteria detection by automated methodOrdered By: Gely Sprague on 09-21-2022 Bacteria Auto Ql (U) None seen None Seen [facility] Urine clarity by refractomet ry automatedOrdered By: Gely Sprague on 09-21-2022 Clarity Refractometry automated (U) Clear Clear [facility] Urine culture routineOrdered By: Gely Sprague on 09-21-2022 Bacteria identified Cx Nom (U) No Growth [address] [facility] Urine glucose measurement by automated test strip (mass/volume)Ordered By: Gely Sprague on 09-21-2022 Glucose Auto test strip (U) [Mass/Vol] Normal mg/dL Normal [facility] Urine hemoglobin detection b y automated test stripOrdered By: Gely Sprague on 09-21-2022 Hemoglobin Auto test strip Ql (U) 3+ Negative [facility] Urine leukocyte esterase det ection by automated test stripOrdered By: Gely Sprague on 09-21-2022 Leukocyte esterase Auto test strip Ql (U) 2+ Negative [facility] Urobilinogen Auto test strip (U) [Mass/Vol]Ordered By: Gely Sprague on 09-21-2022 Urobilinogen (U) [Mass/Vol] Normal mg/dL Normal [facility] pH Auto test strip (U)Ordere d By: Gely Sprague on 09-21-2022 pH (U) 5.5 [pH] 5.0-9.0 [facility] CBC W Auto Differential pane l (Bld)on 09-17-2022 Basophils (Bld) [#/Vol] 0.1 10*3/uL 0.0 - 0.2 K/uL [facility] Basophils/100 WBC (Bld) 1.0 % [facility] Eosinophils (Bld) [#/Vol] 0.9 10*3/uL High 0.0 - 0.7 K/uL [facility] Eosinophils/100 WBC (Bld) 7.1 % [facility] Erythrocyte distribution width (RBC) [Ratio] 13.1 % 11.5 - 14.5 % [facility] Hematocrit (Bld) [Volume fraction] 42.4 % 37.0 - 47.0 % [facility] Hemoglobin (Bld) [Mass/Vol] 14.7 g/dL 12.0 - 16.0 g/dL [facility] Interpretation and review of laboratory results Abnormal [facility] Lymphocytes (Bld) [#/Vol] 3.5 10*3/uL 1.0 - 4.8 K/uL [facility] Lymphocytes/100 WBC (Bld) 26.8 % [facility] [employer] MCH (RBC) [Entitic mass] 31.0 pg 27.0 - 31.3 pg [facility] MCHC (RBC) [Mass/Vol] 34.6 % 33.0 - 37.0 % [facility] MCV (RBC) [Entitic vol] 89.6 fL 79.4 - 94.8 fL [facility] Monocytes (Bld) [#/Vol] 0.9 10*3/uL High 0.2 - 0.8 K/uL [facility] Monocytes/100 WBC (Bld) 7.1 % [facility] Neutrophils (Bld) [#/Vol] 7.7 10*3/uL High 1.4 - 6.5 K/uL [facility] Platelets (Bld) [#/Vol] 276 10*3/uL 130 - 400 K/uL [facility] RBC (Bld) [#/Vol] 4.73 10*6/uL [facility] Segmented neutrophils/100 WBC (Bld) 58.0 % [facility] WBC (Bld) [#/Vol] 13.2 10*3/uL High 4.8 - 10.8 K/uL [facility] CBC With Platelet and Differ entialon 09-17-2022 Basophils (Bld) [#/Vol] 0.1 10*3/uL Normal 0.0-0.2 [facility] Comment on above: Performed By: #### P GLU #### [facility] [address] [place] [address] Basophils/100 WBC (Bld) 1.0 % Normal [facility] Comment on above: Performed By: #### P GLU #### [facility] [address] [place] [address] Eosinophils (Bld) [#/Vol] 0.9 10*3/uL Critically high 0.0-0.7 [facility] Comment on above: Performed By: #### P GLU #### [facility] [address] [place] [address] Eosinophils/100 WBC (Bld) 7.1 % Normal [facility] Comment on above: Performed By: #### P GLU #### [facility] [address] [place] [address] Erythrocyte distribution width (RBC) [Ratio] 13.1 % Normal 11.5-14.5 [facility] Comment on above: Performed By: #### P GLU #### [facility] [address] [place] [address] Hematocrit (Bld) [Volume fraction] 42.4 % Normal 37.0-47.0 [facility] Comment on above: Performed By: #### P GLU #### [facility] [address] [place] [address] Hemoglobin (Bld) [Mass/Vol] 14.7 g/dL Normal 12.0-16.0 [facility] Comment on above: Performed By: #### P GLU #### [facility] [address] [place] [address] Lymphocytes (Bld) [#/Vol] 3.5 10*3/uL Normal 1.0-4.8 [facility] Comment on above: Performed By: #### P GLU #### [facility] [address] [place] [address] Lymphocytes/100 WBC (Bld) 26.8 % Normal [facility] Comment on above: Performed By: #### P GLU #### [facility] [address] [place] [address] MCH (RBC) [Entitic mass] 31.0 pg Normal 27.0-31.3 [facility] Comment on above: Performed By: #### P GLU #### [facility] [address] [place] [address] MCHC 34.6 % Normal 33.0-37.0 [facility] Comment on above: Performed By: #### P GLU #### [facility] [address] [place] [address] MCV (RBC) [Entitic vol] 89.6 fL Normal 79.4-94.8 [facility] Comment on above: Performed By: #### P GLU #### [facility] [address] [place] [address] Monocytes (Bld) [#/Vol] 0.9 10*3/uL Critically high 0.2-0.8 [facility] Comment on above: Performed By: #### P GLU #### [facility] [address] [place] [address] Monocytes/100 WBC (Bld) 7.1 % Normal [facility] Comment on above: Performed By: #### P GLU #### [facility] [address] [place] [address] Neutrophils (Bld) [#/Vol] 7.7 10*3/uL Critically high 1.4-6.5 [facility] Comment on above: Performed By: #### P GLU #### [facility] [address] [place] [address] Neutrophils/100 WBC (Bld) 58.0 % Normal [facility] Comment on above: Performed By: #### P GLU #### [facility] [address] [place] [address] Platelets (Bld) [#/Vol] 276 10*3/uL Normal 130-400 [facility] Comment on above: Performed By: #### P GLU #### [facility] [address] [place] [address] RBC (Bld) [#/Vol] 4.73 10*6/uL Normal 4.20-5.40 [facility] Comment on above: Performed By: #### P GLU #### [facility] [address] [place] [address] WBC (Bld) [#/Vol] 13.2 10*3/uL Critically high 4.8-10.8 [facility] Comment on above: Performed By: #### P GLU #### [facility] [address] [place] [address] Comprehensive Metabolic Pane ben 09-17-2022 Albumin [Mass/Vol] 4.7 g/dL Critically high 3.5-4.6 [facility] Comment on above: Performed By: #### U AR #### [facility] [address] [place] [address] ALP [Catalytic activity/Vol] 93 U/L Normal 40-130 [facility] Comment on above: Performed By: #### U AR #### [facility] [address] [place] [address] ALT [Catalytic activity/Vol] 14 U/L Normal 0-33 [facility] Comment on above: Performed By: #### U AR #### [facility] [address] [place] [address] Anion gap [Moles/Vol] 14 mmol/L Normal 9-15 [facility] Comment on above: Performed By: #### U AR #### [facility] [address] [place] [address] AST [Catalytic activity/Vol] 17 U/L Normal 0-35 [facility] Comment on above: Performed By: #### U AR #### [facility] [address] [place] [address] Bilirubin [Mass/Vol] 0.5 mg/dL Normal 0.2-0.7 [facility] Comment on above: Performed By: #### U AR #### [facility] [address] [place] [address] Calcium [Mass/Vol] 10.1 mg/dL Critically high 8.5-9.9 [facility] Comment on above: Performed By: #### U AR #### [facility] [address] [place] [address] Chloride [Moles/Vol] 103 mmol/L Normal 95-107 [facility] Comment on above: Performed By: #### U AR #### [facility] [address] [place] [address] CO2 [Moles/Vol] 21 mmol/L Normal 20-31 [facility] Comment on above: Performed By: #### U AR #### [facility] [address] [place] [address] Creatinine [Mass/Vol] 0.73 mg/dL Normal 0.50-0.90 [facility] Comment on above: Performed By: #### U AR #### [facility] [address] [place] [address] GFR >60.0 Normal >60 [facility] Comment on above: Result Comment: Pedi atric calculator link https://www.kidney.org/professionals/kdoqi/gfr_calculatorped Effective Mar 31, 2022 These results are not intended for use in patients <18 years of age. eGFR results are calculated without a race factor using the 2020 CKD-EPI equation. Careful clinical correlation is recommended, particularly when comparing to results calculated using previous equations. The CKD-EPI equation is less accurate in patients with extremes of muscle mass, extra-renal metabolism of creatinine, excessive creatinine ingestion, or following therapy that affects renal tubular secretion. Performed By: #### U AR #### [facility] [address] [place] [address] Globulin (S) [Mass/Vol] 3.6 g/dL Critically high 2.3-3.5 [facility] Comment on above: Performed By: #### U AR #### [facility] [address] [place] [address] Glucose [Mass/Vol] 205 mg/dL Critically high 70-99 [facility] Comment on above: Performed By: #### U AR #### [facility] [address] [place] [address] Potassium [Moles/Vol] 4.1 mmol/L Normal 3.4-4.9 [facility] Comment on above: Performed By: #### U AR #### [facility] [address] [place] [address] Protein [Mass/Vol] 8.3 g/dL Critically high 6.3-8.0 [facility] Comment on above: Performed By: #### U AR #### [facility] [address] [place] [address] Sodium [Moles/Vol] 138 mmol/L Normal 135-144 [facility] Comment on above: Performed By: #### U AR #### [facility] [address] [place] [address] Urea nitrogen [Mass/Vol] 23 mg/dL Critically high 6-20 [facility] Comment on above: Performed By: #### U AR #### [facility] [address] [place] [address] Comprehensive metabolic 2000 panelon 09-17-2022 Albumin [Mass/Vol] 4.7 g/dL High 3.5 - 4.6 g/dL [facility] ALP [Catalytic activity/Vol] 93 U/L 40 - 130 U/L [facility] ALT [Catalytic activity/Vol] 14 U/L 0 - 33 U/L [facility] Anion gap [Moles/Vol] 14 mmol/L [facility] AST [Catalytic activity/Vol] 17 U/L 0 - 35 U/L [facility] Bilirubin [Mass/Vol] 0.5 mg/dL 0.2 - 0 .7 mg/dL [facility] Calcium [Mass/Vol] 10.1 mg/dL High 8.5 - 9.9 mg/dL [facility] Chloride [Moles/Vol] 103 mmol/L [facility] CO2 [Moles/Vol] 21 mmol/L [facility] Creatinine [Mass/Vol] 0.73 mg/dL 0.50 - 0.90 mg/dL [facility] GFR/1.73 sq M.predicted among non-blacks MDRD (S/P/Bld) [Vol rate/Area] 60 - PINF [facility] Comment on above: Pediatric calculator link https://www.kidney.org/professionals/kdoqi/gfr_calculatorped Effective Mar 31, 2022 These results are not intended for use in patients <18 years of age. eGFR results are calculated without a race factor using the 2020 CKD-EPI equation. Careful clinical correlation is recommended, particularly when comparing to results calculated using previous equations. The CKD-EPI equation is less accurate in patients with extremes of muscle mass, extra-renal metabolism of creatinine, excessive creatinine ingestion, or following therapy that affects renal tubular secretion. Globulin (S) [Mass/Vol] 3.6 g/dL High 2.3 - 3.5 g/dL [facility] Glucose [Mass/Vol] 205 mg/dL High 70 - 99 mg/dL [facility] Interpretation and review of laboratory results Abnormal [facility] Potassium [Moles/Vol] 4.1 mmol/L [facility] Protein [Mass/Vol] 8.3 g/dL High 6.3 - 8.0 g/dL [facility] Sodium [Moles/Vol] 138 mmol/L [facility] Urea nitrogen [Mass/Vol] 23 mg/dL High 6 - 20 mg/dL [facility] Culture, Urineon 09-17-2022 Culture, Urine ORDER#: [id number] OR DERED BY: CHRISTIANO HARDING SOURCE: Urine Clean Catch COLLECTED: 09/17/22 01:30 ANTIBIOTICS AT [facility].: RECEIVED : 09/17/22 02:25 Culture, Urine FINAL 09/18/22 13:53 Cult,Urine: NO SIGNIFICANT [place]TH [place] [address] Normal [facility] Comment on above: Performed By: #### U NEYMAR #### [facility] [address] [place] [id number] Lactate (BldV) [Moles/Vol]on 09-17-2022 [facility] Lactic Acidon 09-17-2022 Lactate [Moles/Vol] 1.8 mmol/L Normal 0.5-2.2 [facility] Comment on above: Performed By: #### P GLU #### [facility] [address] [address] Lactate (BldV) [Moles/Vol] 1.8 mmol/L 0.5 - 2.2 mmol/L [facility] Lipaseon 09-17-2022 Lipase [Catalytic activity/Vol] 27 U/L Normal 12-95 [facility] Comment on above: Performed By: #### U NEYMAR #### [facility] [address] [place] [address] Lipase [Catalytic activity/Vol] 27 U/L 12 - 95 U/L [facility] Microscopic Urinalysison Bacteria LM Ql (Urine sed) Negative Negative /HPF [facility] Epithelial cells Auto (Urine sed) [#/Area] 6-10 [facility] Hyaline casts Auto (Urine sed) [#/Area] 5-10 [facility] RBC Auto (Urine sed) [#/Area] >100 High [facility] WBC Auto (Urine sed) [#/Area] 50-100 Abnormal [facility] No Panel Informationon 09-17 Interpretation and review of laboratory results Abnormal [facility] UR Drugs of Abuse Panelon Drug Screen Comment see below Normal [facility] Comment on above: Result Comment: This method is a screening test to detect only these drug classes as part of a medical workup. Confirmatory testing by another method should be ordered if clinically indicated. Performed By: #### U DRGS #### [facility] [address] [place] [address] UR Amphetamines Screen Negative Normal Negative < [facility] Comment on above: Performed By: #### U DRGS #### [facility] [address] [place] [address] UR Barbiturates Screen Negative Normal Negative < [facility] Comment on above: Performed By: #### U DRGS #### [facility] [address] [place] [address] UR Benzo Screen Negative Normal Negative < [facility] Comment on above: Performed By: #### U DRGS #### [facility] [address] [place] [address] UR Cannabinoids Screen Negative Normal Negative < [facility] Comment on above: Performed By: #### U DRGS #### [facility] [address] [place] [address] UR Cocaine Screen Negative Normal Negative < [facility] Comment on above: Performed By: #### U DRGS #### [facility] [address] [place] [address] UR Fentanyl Screen Negative Normal Negative < [facility] Comment on above: Performed By: #### U DRGS #### [facility] [address] [place] [address] UR Methadone Screen Negative Normal Negative < [facility] Comment on above: Performed By: #### U DRGS #### [facility] [address] [place] [address] UR Opiates Screen Negative Normal Negative < [facility] Comment on above: Performed By: #### U DRGS #### [facility] [address] [place] [address] UR Oxycodone Screen Negative Normal Negative < [facility] Comment on above: Performed By: #### U DRGS #### [facility] [address] [place] [address] UR PCP Screen Negative Normal Negative < [facility] Comment on above: Performed By: #### U DRGS #### [facility] [address] [place] [address] UR Propoxyphene Screen Negative Normal Negative < [facility] Comment on above: Performed By: #### U DRGS #### [facility] [address] [place] [address] URINE DRUG SCREENon 09-18-19 23 Amphetamines Ql (U) Negative Negative <1000 ng/mL [facility] [employer] Barbiturates Screen Ql (U) Negative Negative < 200 ng/mL [facility] [employer] Benzodiazepines Ql (U) Negative Negat isabella < 200 ng/mL [facility] [employer] Cannabinoids Screen Ql (U) Negative Negative < 50 ng/mL [facility] [employer] Cocaine Ql (U) Negative Negative < 300 ng/mL [facility] Drug screen comment (U) [Interp] see below [facility] Comment on above: This method is a scr eening test to detect only these drug classes as part of a medical workup. Confirmatory testing by another method should be ordered if clinically indicated. FENTANYL SCREEN, URINE Negative Negat isabella < 50 ng/mL [facility] Methadone Screen Ql (U) Negative Negative <300 ng/mL [facility] Opiates Screen Ql (U) Negative Negati ve < 300 ng/mL [facility] oxyCODONE Ql (U) Negative Negative <100 ng/mL [facility] Phencyclidine Ql (U) Negative Negativ e < 25 ng/mL [facility] Propoxyphene Screen Ql (U) Negative Negative <300 ng/mL [facility] Urinalysis with Reflex to Cu ltureon 09-17-2022 Bilirubin Ql (U) Negative Negative [facility] Clarity (U) CLOUDY Abnormal Clear [facility] Color (U) Yellow Straw/Clay ow [facility] Glucose Test strip (U) [Mass/Vol] Negative Negative mg/dL [facility] Hemoglobin Ql (U) LARGE Abnormal Negative [facility] Ketones (U) [Mass/Vol] 15 mg/dL Abnormal Negative [facility] Leukocyte esterase Test strip Ql (U) MODERATE Abnormal Negative [facility] Nitrite Ql (U) Negative Negative [facility] pH (U) 5.0 [pH] 5.0 - 9.0 [facility] Protein (U) [Mass/Vol] TRACE Abnormal Negat isabella mg/dL [facility] Specific gravity (U) [Rel density] 1.029 1.005 - 1.030 [facility] Urine Reflex to Culture Yes [facility] Urobilinogen Qn (U) 0.2 [facility] Urinalysis, reflex to cultur andre 09-17-2022 Urine Reflexed to Culture Yes Normal [facility] Comment on above: Performed By: #### P GLU #### [facility] [address] [place] [address] Bilirubin Ql (U) Negative Normal Negative [facility] Comment on above: Performed By: #### P GLU #### [facility] [address] [place] [address] Clarity (U) CLOUDY Abnormal Clear [facility] Comment on above: Performed By: #### P GLU #### [facility] [address] [place] [address] Color (U) Yellow Normal Straw/Clay [facility] Comment on above: Performed By: #### P GLU #### [facility] [address] [place] [address] Glucose Ql (U) Negative Normal Negative [facility] Comment on above: Performed By: #### P GLU #### [facility] [address] [place] [address] Hemoglobin Ql (U) LARGE Abnormal Negative [facility] Comment on above: Performed By: #### P GLU #### [facility] [address] [place] [address] Ketones Ql (U) 15 mg/dL Abnormal Negative [facility] Comment on above: Performed By: #### P GLU #### [facility] [address] [place] [address] Leukocyte esterase Test strip Ql (U) MODERATE Abnormal Negative [facility] Comment on above: Performed By: #### P GLU #### [facility] [address] [place] [address] Nitrite Ql (U) Negative Normal Negative [facility] Comment on above: Performed By: #### P GLU #### [facility] [address] [place] [address] pH (U) 5.0 [pH] Normal 5.0-9.0 [facility] Comment on above: Performed By: #### P GLU #### [facility] [address] [place] [address] Protein Ql (U) TRACE Abnormal Negative [facility] Comment on above: Performed By: #### P GLU #### [facility] [address] [place] [address] Specific gravity (U) [Rel density] 1.029 Normal 1.005-1.03 [facility] Comment on above: Performed By: #### P GLU #### [facility] [address] [place] [address] Urobilinogen Qn (U) 0.2 {Diaz'U}/dL Normal < 2.0 [facility] Comment on above: Performed By: #### P GLU #### [facility] [address] [place] [address] Urine Microscopicon 09-18-19 23 Bacteria LM.HPF (Urine sed) [#/Area] Negative Normal Negative [facility] Comment on above: Performed By: #### U NEYMAR #### [facility] [address] [place] [address] Urine Epithelial Cells Auto 6-10 Normal 0-5 [facility] Comment on above: Performed By: #### U NEYMAR #### [facility] [address] [place] [address] Urine Hyaline Casts Auto 5-10 Normal 0-5 [facility] Comment on above: Performed By: #### U NEYMAR #### [facility] [address] [place] [address] Urine RBC Auto >100 Critically high 0-5 [facility] Comment on above: Performed By: #### U NEYMAR #### [facility] [address] [place] [address] Urine WBC Auto 50-100 Abnormal 0-5 [facility] Comment on above: Performed By: #### U NEYMAR #### [facility] [address] [place] [address] Coding Summary.on 09-11-2022 Coding Summary. Normal [facility] CT Abdomen/Pelvis w/o Contra ston 03-14-2023 CT Abdomen/Pelvis w/o Contrast Normal [facility] Discharge Instructionson Discharge Instructions [id number]:1 27 Normal [facility] ED Clinical Summaryon 2022 ED Clinical Summary Normal Dilma michael [facility] ED Note-Physicianon 09-10-19 ED Note-Physician Normal [facility] Comment on above: Result Comment: Elec tronically Signed By: Geo Chaves PA-C\.br\Date and Time Signed: 09/08/22 23:44 EDT\.br\Electronically Co-Signed By: Grey Putnam DO\.br\Date and Time Co-Signed: 09/09/22 00:55 EDT ED Patient Education Noteon 09-09-2022 ED Patient Education Note Normal [facility] ED Patient Summaryon 023 ED Patient Summary Normal [facility] Auto Diffon 09-08-2022 Basophils/100 WBC (Bld) 0.8 % Normal 0.0-2.0 [facility] Comment on above: Order Comment: Order Added by Discern Expert. Performed By: #### 2 729958, 4967508, 4194314, 2654894, 30973009, 8299677 ####[facility] [address] [place] [address] Basophils/Leukocytes Auto (Bld) [Pure # fraction] 0.1 E9/L Normal 0.0-0.2 [facility] Comment on above: Order Comment: Order Added by Discern Expert. Performed By: #### 2 924917, 0361849, 1340120, 0675029, 68812609, 6880451 ####[facility] [address] [place] [address] Eosinophils/100 WBC (Bld) 11.2 % High 0.0-8.0 [facility] Comment on above: Order Comment: Order Added by Discern Expert. Performed By: #### 2 772959, 7205812, 7277323, 5567442, 31032664, 3816126 ####[place] [address] [address] Eosinophils/Leukocytes Auto (Bld) [Pure # fraction] 1.0 E9/L High 0.0-0.5 [facility] Comment on above: Order Comment: Order Added by Discern Expert. Performed By: #### 2 192550, 4546533, 0769263, 7956123, 11012127, 0181855 ####[address] [address] Lymphocytes/100 WBC (Bld) 23.7 % Normal 14.0-50.0 [facility] Comment on above: Order Comment: Order Added by Discern Expert. Performed By: #### 2 914395, 1223541, 0550584, 1882518, 09282159, 8182841 ####[address] [address] Lymphocytes/Leukocytes Auto (Bld) [Pure # fraction] 2.0 E9/L Normal 1.0-4.0 [facility] Comment on above: Order Comment: Order Added by Discern Expert. Performed By: #### 2 922585, 9043069, 4234060, 1541647, 07291460, 4550325 ####[address] [address] Monocytes/100 WBC (Bld) 6.5 % Normal 4.0-14.0 [facility] Comment on above: Order Comment: Order Added by Discern Expert. Performed By: #### 2 106294, 0085892, 9522766, 7485086, 21767993, 7759742 ####[address] [address] Monocytes/Leukocytes Auto (Bld) [Pure # fraction] 0.6 E9/L Normal 0.2-1.0 [facility] Comment on above: Order Comment: Order Added by Discern Expert. Performed By: #### 2 564783, 2579810, 4197221, 1962124, 68245426, 0202853 ####[address] [address] Neutrophils/100 WBC (Bld) 57.8 % Normal 36.0-75.0 [facility] Comment on above: Order Comment: Order Added by Discern Expert. Performed By: #### 2 673407, 2083666, 3006290, 4290003, 43813966, 8242778 ####[facility] [address] [place] [address] Neutrophils/Leukocytes Auto (Bld) [Pure # fraction] 4.9 E9/L Normal 2.0-7.5 [facility] Comment on above: Order Comment: Order Added by Discern Expert. Performed By: #### 2 792460, 0651390, 7857369, 9358506, 23774169, 2645599 ####[facility] [address] [place] [address] BMPon 09-08-2022 Creatinine [Mass/Vol] 0.8 mg/dL Normal 0.5-1.3 [facility] Comment on above: Order Comment: Patie nt in Imaging, Rn will start line for labs when patient is back. [id number] 09/08/2022 20:11:47 EDT Performed By: #### 2 991624, 4717268, 5942538, 9561588, 88143193, 0226648 ####[facility] [address] [place] [address] Urea nitrogen [Mass/Vol] 17 mg/dL Normal 5-21 [facility] Comment on above: Order Comment: Patie nt in Imaging, Rn will start line for labs when patient is back. [email or web address] 09/08/2022 20:11:47 EDT Performed By: #### 2 257210, 6337528, 8879172, 6576265, 34254098, 7960226 ####[facility] [address] [place] [address] Urea nitrogen/Creatinine [Mass ratio] 21 No Units High 10-20 [facility] Comment on above: Order Comment: Patie nt in Imaging, Rn will start line for labs when patient is back. [id number] 09/08/2022 20:11:47 EDT Performed By: #### 2 028595, 9301401, 7764062, 1822232, 03477417, 4133700 ####[facility] [address] [place] [address] Anion gap [Moles/Vol] 11 mmol/L Normal 6-16 [facility] Comment on above: Order Comment: Patie nt in Imaging, Rn will start line for labs when patient is back. [id number] 09/08/2022 20:11:47 EDT Performed By: #### 2 433840, 5396177, 6842825, 5084435, 57688526, 6159296 ####[facility] [address] [place] [address] Calcium [Mass/Vol] 8.8 mg/dL Low 8.9-11.1 [facility] Comment on above: Order Comment: Patie nt in Imaging, Rn will start line for labs when patient is back. [email or web address] 09/08/2022 20:11:47 EDT Performed By: #### 2 030052, 5325111, 2971614, 8565080, 82567198, 2734893 ####[facility] [address] [place] [address] Chloride [Moles/Vol] 107 mmol/L Normal 101-111 [facility] Comment on above: Order Comment: Patie nt in Imaging, Rn will start line for labs when patient is back. [id number] 09/08/2022 20:11:47 EDT Performed By: #### 2 990505, 2322864, 6156551, 0588193, 22609802, 7278474 ####[facility] [address] [place] [address] CO2 [Moles/Vol] 26 mmol/L Normal 21-31 [facility] Comment on above: Order Comment: Patie nt in Imaging, Rn will start line for labs when patient is back. [email or web address] 09/08/2022 20:11:47 EDT Performed By: #### 2 781518, 6278938, 2454992, 1618018, 05420730, 7900416 ####[facility] [address] [place] [address] Glucose [Mass/Vol] 195 mg/dL Normal 55-199 [facility] Comment on above: Order Comment: Nelly nt in Imaging, Rn will start line for labs when patient is back. [id number] 09/08/2022 20:11:47 EDT Result Comment: If t his glucose result represents a fasting glucose, interpretation should refer to the following reference range: 55-99 mg/dL Performed By: #### 2 135077, 3280361, 7718978, 6069273, 70795400, 3490733 ####[facility] [address] [place] [address] Potassium [Moles/Vol] 3.7 mmol/L Normal 3.5-5.3 [facility] Comment on above: Order Comment: Nelly mianya in Imaging, Rn will start line for labs when patient is back. [id number] 09/08/2022 20:11:47 EDT Performed By: #### 2 911798, 4143001, 1223824, 1904549, 35435741, 8140785 ####[facility] [address] [place] [address] Sodium [Moles/Vol] 140 mmol/L Normal 135-145 [facility] Comment on above: Order Comment: Nelly nt in Imaging, Rn will start line for labs when patient is back. [id number] 09/08/2022 20:11:47 EDT Performed By: #### 2 686578, 7254350, 2958049, 0936005, 82481898, 5515392 ####[facility] [address] [place] [address] CBC w/ Auto Diffon 3 Erythrocyte distribution width (RBC) [Ratio] 12.9 % Normal 10.9-14.2 [facility] Comment on above: Performed By: #### 2 838636, 3437088, 4978614, 7451279, 79975580, 1322900 ####[facility] [address] [place] [address] Hematocrit (Bld) [Volume fraction] 37.9 % Normal 34.0-46.0 [facility] Comment on above: Performed By: #### 2 042272, 7495732, 6752196, 5143679, 81236764, 5203126 ####[facility] [address] [place] [address] Hemoglobin (Bld) [Mass/Vol] 12.9 g/dL Normal 12.0-16.0 [facility] Comment on above: Performed By: #### 2 013713, 8074363, 8845135, 0162978, 15423827, 6049432 ####[address] [address] MCH (RBC) [Entitic mass] 30.4 pg Normal 27.0-34.0 [facility] Comment on above: Performed By: #### 2 944058, 7651098, 5018384, 0690236, 76278616, 3751671 ####[address] [address] MCHC (RBC) [Mass/Vol] 34.1 g/dL Normal 31.4-36.0 [facility] Comment on above: Performed By: #### 2 788568, 0748567, 2480726, 0331654, 92613937, 4944417 ####[address] [address] MCV (RBC) [Entitic vol] 89.2 fL Normal 80.0-100.0 [facility] Comment on above: Performed By: #### 2 003644, 9982248, 1934159, 1666636, 22060031, 7238676 ####[address] [address] Platelet mean volume (Bld) [Entitic vol] 6.9 fL Normal 6.4-10.8 [facility] Comment on above: Performed By: #### 2 636363, 5427556, 3592180, 3418653, 82523026, 9960975 ####[address] [address] [place] [address] Platelets (Bld) [#/Vol] 195.0 E9/L Normal 150.0-500. 0 [facility] Comment on above: Performed By: #### 2 623303, 7108109, 5636056, 1530256, 52080861, 6749845 ####[facility] [address] [place] [address] RBC (Bld) [#/Vol] 4.2 E12/L Low 4.3-5.9 [facility] Comment on above: Performed By: #### 2 947015, 1366111, 3888179, 4833985, 68541671, 9151057 ####[facility] [address] [place] [address] WBC corrected for nucl RBC Auto (Bld) [#/Vol] 8.5 E9/L Normal 4.0-11.0 [facility] Comment on above: Result Comment: Slid e reviewed by ts. Performed By: #### 2 960479, 8399404, 9269609, 1221231, 64852765, 4057337 ####[facility] [address] [place] [address] CHEMISTRYOrdered By: SYSTEM SYSTEM on 09-08-2022 Albumin [Mass/Vol] 4.0 g/dL Normal 3.3 - 5.0 gm/dL [facility] Albumin/Globulin [Mass ratio] 1.2 {ratio} Normal 1.1 - 2.2 [facility] ALP [Catalytic activity/Vol] 71 [iU]/d Normal 21 - 98 Int._Unit/ L [facility] ALT No additional P-5'-P [Catalytic activity/Vol] 17 [iU]/d Normal 6 - 46 Int._Unit/ L [facility] Anion gap [Moles/Vol] 11 mmol/L Normal 6 - 16 mEq/L [facility] AST [Catalytic activity/Vol] 18 [iU]/d Normal 5 - 43 Int._Unit/ L [facility] Bilirubin [Mass/Vol] 0.5 mg/dL Normal 0.0 - 1 .1 mg/dL [facility] Bilirubin.direct [Mass/Vol] mg/dL Normal 0.1 - 0.4 mg/dL [facility] Bilirubin.indirect [Mass or moles/Vol] Unable to Calculate mg/dL Invalid Interpretation Code 0.1 - 0.9 mg/dL [facility] Calcium [Mass/Vol] 8.8 mg/dL Low 8.9 - 11. 1 mg/dL [facility] Chloride [Moles/Vol] 107 mmol/L Normal 101 - 1 11 mmol/L [facility] CO2 [Moles/Vol] 26 mmol/L Normal 21 - 31 mmol/L [facility] Creatinine [Mass/Vol] 0.8 mg/dL Normal 0.5 - 1.3 mg/dL [facility] GFR/1.73 sq M.predicted among blacks MDRD (S/P/Bld) [Vol rate/Area] mL/min/1.73 m2 Normal >=59mL/min /1.73 m2 [facility] Chem S GFR/1.73 sq M.predicted among non-blacks MDRD (S/P/Bld) [Vol rate/Area] mL/min/1.73 m2 Normal >=59mL/min /1.73 m2 [facility] Chem S Globulin (S) [Mass/Vol] 3.2 g/dL Normal 1.4 - 4.0 gm/dL [facility] Glucose [Mass/Vol] 195 mg/dL Normal 55 - 199 mg/dL [facility] Lipase [Catalytic activity/Vol] 36 U/L Normal 13 - 58 unit/L [facility] Potassium [Moles/Vol] 3.7 mmol/L Normal 3.5 - 5.3 mmol/L [facility] Protein [Mass/Vol] 7.2 g/dL Normal 6.0 - 7.8 gm/dL [facility] Sodium [Moles/Vol] 140 mmol/L Normal 135 - 145 mmol/L [facility] Urea nitrogen [Mass/Vol] 17 mg/dL Normal 5 - 21 mg/dL [facility] Urea nitrogen/Creatinine [Mass ratio] 21 mg/mg High 10 - 20 [facility] Consent for Treatmenton 08-27 Consent for Treatment [id number]:12 7 Normal [facility] HEMATOLOGYOrdered By: SYSTEM SYSTEM on 09-08-2022 Basophils/100 WBC (Bld) 0.8 % Normal 0.0 - 2.0 % [facility] Basophils/Leukocytes Auto (Bld) [Pure # fraction] 0.1 E9/L Normal 0.0 - 0.2 E9/L [facility] Eosinophils/100 WBC (Bld) 11.2 % High 0.0 - 8.0 % [facility] Eosinophils/Leukocytes Auto (Bld) [Pure # fraction] 1.0 E9/L High 0.0 - 0.5 E9/L [facility] Lymphocytes/100 WBC (Bld) 23.7 % Normal 14.0 - 50.0 % [facility]eAuto[facility] Lymphocytes/Leukocytes Auto (Bld) [Pure # fraction] 2.0 E9/L Normal 1.0 - 4.0 E9/L [facility]eAuto[facility] Monocytes/100 WBC (Bld) 6.5 % Normal 4.0 - 14.0 % [facility]eAuto[facility] Monocytes/Leukocytes Auto (Bld) [Pure # fraction] 0.6 E9/L Normal 0.2 - 1.0 E9/L [facility] Neutrophils/100 WBC (Bld) 57.8 % Normal 36.0 - 75.0 % [facility] Neutrophils/Leukocytes Auto (Bld) [Pure # fraction] 4.9 E9/L Normal 2.0 - 7.5 E9/L [facility]eAuto[facility] HEMATOLOGYOrdered By: Linda Montilla on 09-08-2022 Erythrocyte distribution width (RBC) [Ratio] 12.9 % Normal 10.9 - 14.2 % [facility] Hematocrit (Bld) [Volume fraction] 37.9 % Normal 34.0 - 46.0 % [facility] Hemoglobin (Bld) [Mass/Vol] 12.9 g/dL Normal 12.0 - 16.0 gm/dL [facility] MCH (RBC) [Entitic mass] 30.4 pg Normal 27.0 - 34.0 pg [facility]eAuto[facility] MCHC (RBC) [Mass/Vol] 34.1 g/dL Normal 31.4 - 36.0 gm/dL [facility] MCV (RBC) [Entitic vol] 89.2 fL Normal 80.0 - 100.0 fL [facility]Auto[facility] Platelet mean volume (Bld) [Entitic vol] 6.9 fL Normal 6.4 - 10.8 fL [facility]eAuto[facility] Platelets (Bld) [#/Vol] 195.0 E9/L Normal 150.0 - 500.0 E9/L [facility] RBC (Bld) [#/Vol] 4.2 E12/L Low 4.3 - 5.9 E12/L [facility] WBC corrected for nucl RBC Auto (Bld) [#/Vol] 8.5 E9/L Normal 4.0 - 11.0 E9/L [facility] Comment on above: Result Comment: Slid e reviewed by Hep Fun Panelon 09-08-2022 Bilirubin.indirect [Mass or moles/Vol] UTC Abnormal 0.1-0.9 [facility] Comment on above: Result Comment: Resu lt verified by Discern Rule. Performed result UTC (Unable to Calculate) was sent as an Alpha code due the inability to calculate a valid numeric value. Performed By: #### 2 012295, 6817211, 4731077, 1811839, 04761223, 3682449 ####[facility] [address] [place] [address] Albumin [Mass/Vol] 4.0 g/dL Normal 3.3-5.0 [facility] Comment on above: Performed By: #### 2 830140, 8537960, 1227988, 4822948, 12118862, 1981166 ####[facility] [address] [place] [address] Albumin/Globulin (S) [Mass conc ratio] 1.2 Normal 1.1-2.2 [facility] Comment on above: Performed By: #### 2 497493, 5457292, 6342544, 0642326, 95247033, 8329571 ####[facility] [address] [place] [address] ALP [Catalytic activity/Vol] 71 Int._Unit/L Normal 21-98 [facility] Comment on above: Performed By: #### 2 075126, 0421666, 4287724, 9431989, 09162931, 4011241 ####[facility] [address] [place] [address] ALT No additional P-5'-P [Catalytic activity/Vol] 17 Int._Unit/L Normal 6-46 [facility] Comment on above: Performed By: #### 2 418561, 1363935, 3471061, 5284865, 81772049, 1105995 ####[facility] [address] [place] [address] AST [Catalytic activity/Vol] 18 Int._Unit/L Normal 5-43 [facility] Comment on above: Performed By: #### 2 406480, 0658006, 6160987, 2939424, 95951798, 0253700 ####[facility] [address] [place] [address] Bilirubin [Mass/Vol] 0.5 mg/dL Normal 0.0-1.1 [facility] Comment on above: Performed By: #### 2 985159, 1815461, 4424577, 6210023, 72021668, 6621296 ####[facility] [address] [place] [address] Bilirubin.direct [Mass/Vol] mg/dL Normal 0.1-0.4 [facility] Comment on above: Performed By: #### 2 434987, 3083950, 2048502, [id number], [id number], [id number] ####[facility] [address] [place] [address] Globulin (S) [Mass/Vol] 3.2 g/dL Normal 1.4-4.0 [facility] Comment on above: Performed By: #### 2 [id number], [id number], 8267228, 7276017, [id number], [id number] ####[facility] [address] [place] [address] Protein [Mass/Vol] 7.2 g/dL Normal 6.0-7.8 [facility] Comment on above: Performed By: #### 2 661905, 6190603, 9001903, 7451166, [id number], 9339527 ####[facility] [address] [place] [address] Lipase Levelon 09-08-2022 Lipase [Catalytic activity/Vol] 36 U/L Normal 13-58 [facility] Comment on above: Performed By: #### 2 997532, 0777772, 4805998, 2825633, [id number], [id number] ####[facility] [address] [place] [address] RAD - Preliminary Cat Scan R eporton 09-08-2022 RAD - Preliminary Cat Scan Report [id number] Normal [facility] UA With Cult Reflexon 2022 Bilirubin Ql (U) Negative Normal Negative [facility] Comment on above: Performed By: #### 1 [id number] ####[address] [address] Clarity (U) SL CLOUDY Invalid Interpretation Code [facility] Comment on above: Performed By: #### 1 [id number] ####[address] [address] Color (U) YELLOW Normal Yellow [facility] Comment on above: Performed By: #### 1 [id number] ####[address] [address] Epithelial cells.squamous LM.HPF (Urine sed) [#/Area] 0-2 Normal 0-2 [facility] Comment on above: Performed By: #### 1 [id number] ####[address] [address] Glucose Test strip (U) [Mass/Vol] 2+ Abnormal Negative [facility] Comment on above: Performed By: #### 1 [id number] ####[address] [address] Hemoglobin Ql (U) 3+ Abnormal Negative [facility] Comment on above: Performed By: #### 1 [id number] ####[address] [address] Ketones (U) [Mass/Vol] TRACE Invalid Interpretation Code Negative [facility] Comment on above: Performed By: #### 1 [id number] ####[address] [address] [place].plasma/[place] .RBC (Bld) [Mass ratio] 21-30 Abnormal 0-3 [facility] Comment on above: Performed By: #### 1 [id number] ####[address] [address] Nitrite Ql (U) Negative Normal Negative [facility] Comment on above: Performed By: #### 1 [id number] ####[address] [address] pH (U) 6.0 [pH] Invalid Interpretation Code 5.0-9.0 [facility] Comment on above: Performed By: #### 1 [id number] ####[address] [address] Protein (U) [Mass/Vol] Negative Normal Negative [facility] Comment on above: Performed By: #### 1 5940130 ####[address] [address] Specific gravity (U) [Rel density] >=1.030 Invalid Interpretation Code 1.005-1.03 0 [facility] Comment on above: Performed By: #### 1 [id number] ####[address] [address] Type of Urine collection method Clean Catch Normal [facility] Comment on above: Performed By: #### 1 [id number] ####[address] [address] Urobilinogen Qn (U) 0.2 {Diaz'U}/dL Normal 0.0-1.0 [facility] Comment on above: Performed By: #### 1 [id number] ####[facility] [address] [place] [address] WBC Auto Ql (U) TRACE Abnormal Negative [facility] Comment on above: Performed By: #### 1 [id number] ####[facility] [address] [place] [address] WBC LM.HPF (Urine sed) [#/Area] 0-5 Normal 0-5 [facility] Comment on above: Performed By: #### 1 [id number] ####[facility] [address] [place] [address] URINALYSISOrdered By: Mark Kate on 09-08-2022 Bilirubin Ql (U) Negative (09/08/22 8:30 PM) Normal Negative [facility] UA Auto SS Clarity (U) SL CLOUDY Invalid Interpretation Code [facility] UA Auto SS Color (U) Yellow (09/08/22 8:30 PM) Normal Yellow [facility] UA Auto SS Epithelial cells.squamous LM.HPF (Urine sed) [#/Area] 0-2 /HPF Normal 0-2/HPF [facility] UA Aut o SS Glucose Test strip (U) [Mass/Vol] 2+ *ABN* (09/08/22 8:30 PM) Invalid Interpretation Code Negative [facility] UA Auto SS Hemoglobin Ql (U) 3+ *ABN* (09/08/22 8:30 PM) Invalid Interpretation Code Negative [facility] UA Auto SS Ketones (U) [Mass/Vol] Trace *NA* (09/08/22 8:30 PM) Invalid Interpretation Code Negative [facility] UA Auto SS [place].plasma/[place] .RBC (Bld) [Mass ratio] 21-30 /HPF Invalid Interpretation Code 0-3/HPF [facility] UA Auto SS Nitrite Ql (U) Negative (09/08/22 8:30 PM) Normal Negative [facility] UA Auto SS pH (U) 6.0 *NA* (09/08/22 8:30 PM) Invalid Interpretation Code 5.0 - 9.0 [facility] UA Auto SS Protein (U) [Mass/Vol] Negative (09/08/22 8:30 PM) Normal Negative [facility] UA Auto SS Specific gravity (U) [Rel density] >=1.030 *NA* (09/08/22 8:30 PM) Invalid Interpretation Code 1.005 - 1.030 [facility] UA Auto SS UA Spec Desc Clean Catch (09/08/22 8:30 PM) Normal [facility] UA Auto SS Urobilinogen Qn (U) 0.0990381 {Diaz'U}/dL Normal 0.0 - 1.0 EU/dL [facility] UA Auto SS WBC Auto Ql (U) Trace *ABN* (09/08/22 8:30 PM) Invalid Interpretation Code Negative [facility] UA Auto SS WBC LM.HPF (Urine sed) [#/Area] 0-5 /HPF Normal 0-5/HPF [facility] UA Auto SS eGFRon 09-08-2022 GFR/1.73 sq M.predicted among blacks MDRD (S/P/Bld) [Vol rate/Area] mL/min/{1.73_m2} Normal >=59 [facility] Comment on above: Order Comment: Order added by Discern Expert. Result Comment: eGFR is race adjusted. AA=. Performed By: #### 2 [id number], [id number], 8516570, 8148408, [id number], 8834023 ####[facility] [address] [place] [address] GFR/1.73 sq M.predicted among non-blacks MDRD (S/P/Bld) [Vol rate/Area] mL/min/{1.73_m2} Normal >=59 [facility] Comment on above: Order Comment: Order added by Discern Expert. Result Comment: [employer] aiyana kidney disease could be indicated at eGFR's of less than 60 mL/min/1.73m2. Kidney failure is indicated at less than 15 mL/min/1.73m2. Performed By: #### 2 902584, 7800379, 9759316, 3677435, [id number], 2154499 ####[facility] [address] [place] [address] CT abdomen pelvis wo conon 0 09-07-2022 CT abdomen pelvis wo con Normal [facility] Alanine aminotransferase [En zymatic activity/volume] in Serum or PlasmaOrdered By: Giacomo West on 09-06-2022 ALT [Catalytic activity/Vol] 13 U/L 7-52 [facility] Albumin [Mass/volume] in Ser um or Plasma by Bromocresol green (BCG) dye binding methoOrdered By: Giacomo West on 09-06-2022 Albumin BCG dye [Mass/Vol] 4.4 g/dL 3.5-5.7 [facility] Alkaline phosphatase [Enzyma tic activity/volume] in Serum or PlasmaOrdered By: Giacomo West on 09-06-2022 ALP [Catalytic activity/Vol] 72 U/L 34-104 [facility] Aspartate aminotransferase [ Enzymatic activity/volume] in Serum or PlasmaOrdered By: Giacomo West on 09-06-2022 AST [Catalytic activity/Vol] 14 U/L 13-39 [facility] Automated erythrocytes count in urine sediment (number/area)Ordered By: Giacomo West on 09-06-2022 RBC Auto (Urine sed) [#/Area] Innumerable [HPF] 0-4 [facility] Automated leukocytes count i n urine sediment (number/area)Ordered By: Giacomo West on 09-06-2022 WBC Auto (Urine sed) [#/Area] Innumerable [HPF] 0-4 [facility] Bacterial blood cultureOrder ed By: Giacomo West on 09-06-2022 Bacteria identified Cx Nom (Bld) NO GROWTH [address] [facility] Basic Metabolic Panelon 08-27 Anion gap [Moles/Vol] 9.1 mmol/L Normal 6.0-15.0 [facility] Comment on above: Performed By: #### C UBLD, LACTIC, CBC, HEPATIC, BMP, LIPASE ####[facility] [id number] [place] [address] [place] Calcium [Mass/Vol] 9.6 mg/dL Normal 8.6-10.3 [facility] Comment on above: Performed By: #### C UBLD, LACTIC, CBC, HEPATIC, BMP, LIPASE ####[facility] [address] [place] [address] [place] Chloride [Moles/Vol] 105 mmol/L Normal 98-107 [facility] Comment on above: Performed By: #### C UBLD, LACTIC, CBC, HEPATIC, BMP, LIPASE ####[address] CO2 [Moles/Vol] 29.7 mmol/L Normal 21.0-31.0 [facility] Comment on above: Performed By: #### C UBLD, LACTIC, CBC, HEPATIC, BMP, LIPASE ####[address] Creatinine [Mass/Vol] 0.65 mg/dL Normal 0.60-1.20 [facility] Comment on above: Performed By: #### C UBLD, LACTIC, CBC, HEPATIC, BMP, LIPASE ####[address] Creatinine Clr Calc Pharmacy 145.09 [facility] Comment on above: Performed By: #### C UBLD, LACTIC, CBC, HEPATIC, BMP, LIPASE ####[address] GFR/1.73 sq M.predicted MDRD (S/P/Bld) [Vol rate/Area] mL/min/{1.73_m2} [facility] Comment on above: Performed By: #### C UBLD, LACTIC, CBC, HEPATIC, BMP, LIPASE ####[address] Glucose [Mass/Vol] 64 mg/dL Low 74-109 [facility] Comment on above: Result Comment: [place] Glucose Reference Range is dependent on time and content of last meal. Glucose of more than 200 mg/dL in a nonstressed, ambulatory subject supports the diagnosis of Diabetes Mellitus. ADA recommended reference range Performed By: #### C UBLD, LACTIC, CBC, HEPATIC, BMP, LIPASE ####[address] Potassium [Moles/Vol] 3.8 mmol/L Normal 3.5-5.1 [facility] Comment on above: Performed By: #### C UBLD, LACTIC, CBC, HEPATIC, BMP, LIPASE ####[address] [place] [address] [place] Sodium [Moles/Vol] 140 mmol/L Normal 136-145 [facility] Comment on above: Performed By: #### C UBLD, LACTIC, CBC, HEPATIC, BMP, LIPASE ####[facility] [address] [place] [id number] [place] Urea nitrogen [Mass/Vol] 18 mg/dL Normal 7-25 [facility] Comment on above: Performed By: #### C UBLD, LACTIC, CBC, HEPATIC, BMP, LIPASE ####[facility] Basophils Auto (Bld) [#/Vol] Ordered By: Giacomo West on 09-06-2022 Basophils (Bld) [#/Vol] 0.1 10*3/uL 0.0-0.2 [facility] Basophils/100 WBC Auto (Bld) Ordered By: Giacomo West on 09-06-2022 Basophils/100 WBC (Bld) 1.0 % . [facility] Bilirubin Test strip Ql (U)O rdered By: Giacomo West on 09-06-2022 Bilirubin Ql (U) Negative Negative [facility] Bilirubin.direct [Mass/volum e] in Serum or PlasmaOrdered By: Giacomo West on 09-06-2022 Bilirubin.direct [Mass/Vol] 0.00 mg/dL 0.03-0.18 [facility] Comment on above: If the DBIL is less than 0.1, IBIL is not able to becalculated. Bilirubin.total [Mass/volume ] in Serum or PlasmaOrdered By: Giacomo West on 09-06-2022 Bilirubin [Mass/Vol] 0.3 mg/dL 0.3-1.0 [facility] Blood Cultureon 09-06-2022 Bacteria identified Cx Nom (Bld) NO GROWTH 5 DAYS PERFORMED BY: [address] [place] [id number] PATHOLOGIST [employer] DR[employer] ANTALIA MIKE M.D. Normal [facility] Comment on above: Performed By: #### C UBLD, LACTIC, CBC, HEPATIC, BMP, LIPASE ####[place] [address] [place] [id number] [place] Bacteria identified Cx Nom (Bld) NO GROWTH 5 DAYS PERFORMED BY: [address] [place] [address] PATHOLOGIST [employer] TRAIN DRIVER NATALIA MIKE M.D. Normal [facility] Comment on above: Performed By: #### C UBLD, LACTIC, CBC, HEPATIC, BMP, LIPASE ####[place] [id number] [place] Calcium [Mass/volume] in Ser um or PlasmaOrdered By: Giacomo West on 09-06-2022 Calcium [Mass/Vol] 9.6 mg/dL 8.6-10.3 [facility] Carbon dioxide, total [Moles /volume] in Serum or PlasmaOrdered By: Giacomo West on 09-06-2022 CO2 [Moles/Vol] 29.7 mmol/L 21.0-31.0 [facility] Chloride [Moles/volume] in S jaron or PlasmaOrdered By: Giacomo West on 09-06-2022 Chloride [Moles/Vol] 105 mmol/L 98-107 [facility] Color Auto (U)Ordered By: Florentino West on 09-06-2022 Color (U) Yellow Yellow [facility] Complete Blood Count Auto Di ffon 09-06-2022 Basophils (Bld) [#/Vol] 0.1 10*3/uL Normal 0.0-0.2 [facility] Comment on above: Result Comment: PERF ORMED BY:[address] [place], [place] [phone] MEDICAL DIRECTORNATALIA MIKE M.D. Performed By: #### C UBLD, LACTIC, CBC, HEPATIC, BMP, LIPASE ####[place] [id number] [place] Basophils/100 WBC (Bld) 1.0 % Normal . [facility] Comment on above: Performed By: #### C UBLD, LACTIC, CBC, HEPATIC, BMP, LIPASE ####[place] [id number] [place] Eosinophils (Bld) [#/Vol] 0.7 10*3/uL High 0.0-0.45 [facility] Comment on above: Performed By: #### C UBLD, LACTIC, CBC, HEPATIC, BMP, LIPASE ####[address] Eosinophils/100 WBC (Bld) 8.7 % Normal . [facility] Comment on above: Performed By: #### C UBLD, LACTIC, CBC, HEPATIC, BMP, LIPASE ####[address] Erythrocyte distribution width (RBC) [Ratio] 12.9 % Normal 11.9-15.3 [facility] Comment on above: Performed By: #### C UBLD, LACTIC, CBC, HEPATIC, BMP, LIPASE ####[address] Hematocrit (Bld) [Volume fraction] 36.5 % Normal 34.0-46.4 [facility] Comment on above: Performed By: #### C UBLD, LACTIC, CBC, HEPATIC, BMP, LIPASE ####[address] Hemoglobin (Bld) [Mass/Vol] 12.7 g/dL Normal 11.8-15.4 [facility] Comment on above: Performed By: #### C UBLD, LACTIC, CBC, HEPATIC, BMP, LIPASE ####[address] Lymphocytes (Bld) [#/Vol] 2.1 10*3/uL Normal 1.00-4.8 [facility] Comment on above: Performed By: #### C UBLD, LACTIC, CBC, HEPATIC, BMP, LIPASE ####[address] Lymphocytes/100 WBC (Bld) 26.6 % Normal . [facility] Comment on above: Performed By: #### C UBLD, LACTIC, CBC, HEPATIC, BMP, LIPASE ####[place] [id number] [place] MCH (RBC) [Entitic mass] 30.3 pg Normal 24.7-34.3 [facility] Comment on above: Performed By: #### C UBLD, LACTIC, CBC, HEPATIC, BMP, LIPASE ####[address] MCV (RBC) [Entitic vol] 87.2 fL Normal 80-100 [facility] Comment on above: Performed By: #### C UBLD, LACTIC, CBC, HEPATIC, BMP, LIPASE ####[address] Mean Corpuscular HGB Conc 34.8 g/dL Normal 32.0-35.0 [facility] Comment on above: Performed By: #### C UBLD, LACTIC, CBC, HEPATIC, BMP, LIPASE ####[address] Monocytes (Bld) [#/Vol] 0.5 10*3/uL Normal 0.0-0.8 [facility] Comment on above: Performed By: #### C UBLD, LACTIC, CBC, HEPATIC, BMP, LIPASE ####[address] Monocytes/100 WBC (Bld) 19.20 % Normal 0.00-20.00 [facility] Comment on above: Performed By: #### C UBLD, LACTIC, CBC, HEPATIC, BMP, LIPASE ####[address] Monocytes/100 WBC (Bld) 6.7 % Normal . [facility] Comment on above: Performed By: #### C UBLD, LACTIC, CBC, HEPATIC, BMP, LIPASE ####[address] Neutrophils (Bld) [#/Vol] 4.6 10*3/uL Normal 1.8-7.7 [facility] Comment on above: Performed By: #### C UBLD, LACTIC, CBC, HEPATIC, BMP, LIPASE ####[address] [place] [address] [place] Neutrophils/100 WBC (Bld) 57.0 % Normal . [facility] Comment on above: Performed By: #### C UBLD, LACTIC, CBC, HEPATIC, BMP, LIPASE ####[address] NRBC% 0.0 /100{WBC} Normal 0-0.5 [facility] Comment on above: Performed By: #### C UBLD, LACTIC, CBC, HEPATIC, BMP, LIPASE ####[address] Platelet mean volume (Bld) [Entitic vol] 6.9 fL Normal 6.3-10.7 [facility] Comment on above: Performed By: #### C UBLD, LACTIC, CBC, HEPATIC, BMP, LIPASE ####[address] Platelets (Bld) [#/Vol] 216 10*3/uL Normal 150-450 [facility] Comment on above: Performed By: #### C UBLD, LACTIC, CBC, HEPATIC, BMP, LIPASE ####[address] RBC (Bld) [#/Vol] 4.18 10*6/uL Normal 3.60-5.00 [facility] Comment on above: Performed By: #### C UBLD, LACTIC, CBC, HEPATIC, BMP, LIPASE ####[address] WBC (Bld) [#/Vol] 8.0 10*3/uL Normal 3.8-11.6 [facility] Comment on above: Performed By: #### C UBLD, LACTIC, CBC, HEPATIC, BMP, LIPASE ####[address] Creatinine [Mass/volume] in Serum or PlasmaOrdered By: Giacomo West on 09-06-2022 Creatinine [Mass/Vol] 0.65 mg/dL 0.60-1.20 [facility] Dipstick and Microscopicon 0 09-06-2022 Appearance (U) Cloudy Critically abnormal Clear [facility] Comment on above: Order Comment: Name Collection Type:: Clean-Voided Midstream Performed By: #### A DDONUAPLUS, UHCG, CUU ####[place] [address] [place] [address] [place] Bacteria,Urine None Seen Normal None Seen [facility] Comment on above: Order Comment: Name Collection Type:: Clean-Voided Midstream Performed By: #### A DDONUAPLUS, UHCG, CUU ####[address] [address] [place] Bilirubin,Urine Negative Normal Negative [facility] Comment on above: Order Comment: Name Collection Type:: Clean-Voided Midstream Performed By: #### A DDONUAPLUS, UHCG, CUU ####[address] [address] [place] Color (U) Yellow Normal Yellow [facility] Comment on above: Order Comment: Name Collection Type:: Clean-Voided Midstream Performed By: #### A DDONUAPLUS, UHCG, CUU ####[address] [address] [place] Glucose Ql (U) Normal Normal Normal [facility] Comment on above: Order Comment: Name Collection Type:: Clean-Voided Midstream Performed By: #### A DDONUAPLUS, UHCG, CUU ####[address] [address] [place] Hyaline Casts,Urine 0-8 Normal 0-8 [facility] Comment on above: Order Comment: Name Collection Type:: Clean-Voided Midstream Performed By: #### A DDONUAPLUS, UHCG, CUU ####[address] [address] [place] Ketones Ql (U) Negative Normal Negative [facility] Comment on above: Order Comment: Name Collection Type:: Clean-Voided Midstream Performed By: #### A DDONUAPLUS, UHCG, CUU ####[address] [address] [place] Leukocyte esterase Test strip Ql (U) 4+ High Negative [facility] Comment on above: Order Comment: Name Collection Type:: Clean-Voided Midstream Performed By: #### A DDONUAPLUS, UHCG, CUU ####[address] [address] [place] Nitrite,Urine Negative Normal Negative [facility] Comment on above: Order Comment: Name Collection Type:: Clean-Voided Midstream Performed By: #### A DDONUAPLUS, UHCG, CUU ####[address] [address] [place] Occult Blood,Urine 3+ High Negative [facility] Comment on above: Order Comment: Name Collection Type:: Clean-Voided Midstream Performed By: #### A DDONUAPLUS, UHCG, CUU ####[address] [address] [place] pH (U) 5.5 [pH] Normal 5.0-9.0 [facility] Comment on above: Order Comment: Name Collection Type:: Clean-Voided Midstream Performed By: #### A DDONUAPLUS, UHCG, CUU ####[address] [address] [place] Protein,Urine Trace High Negative [facility] Comment on above: Order Comment: Name Collection Type:: Clean-Voided Midstream Performed By: #### A DDONUAPLUS, UHCG, CUU ####[address] [address] [place] RBC,Urine Innumerable High 0-4 [facility] Comment on above: Order Comment: Name Collection Type:: Clean-Voided Midstream Performed By: #### A DDONUAPLUS, UHCG, CUU ####[address] [address] [place] Specificy [place],Urine 1.028 Normal 1.001-1.[address] [facility] Comment on above: Order Comment: Name Collection Type:: Clean-Voided Midstream Performed By: #### A DDONUAPLUS, UHCG, CUU ####[facility] Squamous Epithelial Cell,Urine 3-4 High 0-2 [facility] Comment on above: Order Comment: Name Collection Type:: Clean-Voided Midstream Performed By: #### A DDONUAPLUS, UHCG, CUU ####[place] [address] Urobilinogen,Urine Normal Normal Normal [facility] Comment on above: Order Comment: Name Collection Type:: Clean-Voided Midstream Performed By: #### A DDONUAPLUS, UHCG, CUU ####[place] [address] WBC,Urine Innumerable High 0-4 [facility] Comment on above: Order Comment: Name Collection Type:: Clean-Voided Midstream Performed By: #### A DDONUAPLUS, UHCG, CUU ####[address] Eosinophils Auto (Bld) [#/Vo l]Ordered By: Giacomo West on 09-06-2022 Eosinophils (Bld) [#/Vol] 0.7 10*3/uL 0.0-0.45 [facility] Eosinophils/100 WBC Auto (Bl d)Ordered By: Giacomo West on 09-06-2022 Eosinophils/100 WBC (Bld) 8.7 % . [facility] Erythrocyte distribution wid th Auto (RBC) [Ratio]Ordered By: Giacomo West on 09-06-2022 Erythrocyte distribution width (RBC) [Ratio] 12.9 % 11.9-15.3 [facility] Globulin Calc (S) [Mass/Vol] Ordered By: Giacomo West on 09-06-2022 Globulin (S) [Mass/Vol] 2.9 g/dL [facility] Glucose [Mass/volume] in Ser um or PlasmaOrdered By: Giacomo West on 09-06-2022 Glucose [Mass/Vol] 64 mg/dL 74-109 [facility] Comment on above: ADA recommended refe rence rangeRandom Glucose Reference Range is dependent on time and content of last meal. Glucose of more than 200 mg/dL in a nonstressed, ambulatory subject supports the diagnosis of Diabetes Mellitus. HCG ( test) IA.rapi d Ql (U)Ordered By: Giacomo West on 09-06-2022 HCG ( test) Ql (U) Negative [facility] HCG,Urineon 09-06-2022 Beta HCG ( test) Ql (U) Negative Normal [facility] Comment on above: Order Comment: Name Collection Type:: Clean-Voided Midstream Result Comment: PERF ORMED BY:[address] [place], [place] [id number] MEDICAL DIRECTORNATALIA MIKE M.D. Performed By: #### A DDONUAPLUS, [facility], [facility]U ####[place] [address] [place] [id number] [place] Hematocrit Auto (Bld) [Volum e fraction]Ordered By: Giacomo West on 09-06-2022 Hematocrit (Bld) [Volume fraction] 36.5 % 34.0-46.4 [facility] Hemoglobin [Mass/volume] in BloodOrdered By: Giacomo West on 09-06-2022 Hemoglobin (Bld) [Mass/Vol] 12.7 g/dL 11.8-15.4 [facility] Hepatic Panelon 09-06-2022 Albumin [Mass/Vol] 4.4 g/dL Normal 3.5-5.7 [facility] Comment on above: Performed By: #### C UBLD, LACTIC, CBC, HEPATIC, BMP, LIPASE ####[place] [place] [address] [place] Albumin/Globulin [Mass ratio] 1.5 {ratio} Normal [facility] Comment on above: Performed By: #### C UBLD, LACTIC, CBC, HEPATIC, BMP, LIPASE ####[place] [address] [place] [address] [place] ALP [Catalytic activity/Vol] 72 U/L Normal 34-104 [facility] Comment on above: Performed By: #### C UBLD, LACTIC, CBC, HEPATIC, BMP, LIPASE ####[address] ALT [Catalytic activity/Vol] 13 U/L Normal 7-52 [facility] Comment on above: Performed By: #### C UBLD, LACTIC, CBC, HEPATIC, BMP, LIPASE ####[address] AST [Catalytic activity/Vol] 14 U/L Normal 13-39 [facility] Comment on above: Performed By: #### C UBLD, LACTIC, CBC, HEPATIC, BMP, LIPASE ####[address] Bilirubin [Mass/Vol] 0.3 mg/dL Normal 0.3-1.0 [facility] Comment on above: Performed By: #### C UBLD, LACTIC, CBC, HEPATIC, BMP, LIPASE ####[address] Bilirubin,Indirect 0.3 mg/dL Normal [facility] Comment on above: Performed By: #### C UBLD, LACTIC, CBC, HEPATIC, BMP, LIPASE ####[address] Bilirubin.indirect [Mass/Vol] 0.00 mg/dL Low 0.03-0.18 [facility] Comment on above: Result Comment: If t he DBIL is less than 0.1, IBIL is not able to be calculated. Performed By: #### C UBLD, LACTIC, CBC, HEPATIC, BMP, LIPASE ####[address] Globulin (S) [Mass/Vol] 2.9 g/dL Normal [facility] Comment on above: Performed By: #### C UBLD, LACTIC, CBC, HEPATIC, BMP, LIPASE ####[address] Protein [Mass/Vol] 7.3 g/dL Normal 6.4-8.9 [facility] Comment on above: Performed By: #### C UBLD, LACTIC, CBC, HEPATIC, BMP, LIPASE ####[address] [place] [address] [place] Ketones Auto test strip (U) [Mass/Vol]Ordered By: Giacomo West on 09-06-2022 Ketones (U) [Mass/Vol] Negative Negative [facility] Laboratory - Chemistry and C hemistry - challengeOrdered By: Giacomo West on 09-06-2022 GFR/1.73 sq M.predicted MDRD (S/P/Bld) [Vol rate/Area] mL/min/{1.73_m2} [facility] Laboratory - UrinalysisOrder ed By: Giacomo West on 09-06-2022 Hyaline casts LM Ql (Urine sed) 0-8 [LPF] 0-8 [facility] Lactate [Moles/volume] in Se rum or PlasmaOrdered By: Giacomo West on 09-06-2022 Lactate [Moles/Vol] 0.6 mmol/L 0.5-2.2 [facility] Lactic Acidon 09-06-2022 Lactate [Moles/Vol] 0.6 mmol/L Normal 0.5-2.2 [facility] Comment on above: Result Comment: PERF ORMED BY:[address] [place], [place] [id number] MEDICAL DIRECTORNATALIA MIKE M.D. Performed By: #### C UBLD, LACTIC, CBC, HEPATIC, BMP, LIPASE ####[facility] [id number] [place] [id number] [place] Leukocytes [#/volume] correc suzanne for nucleated erythrocytes in Blood by Automated counOrdered By: Giacomo West on 09-06-2022 WBC corrected for nucl RBC Auto (Bld) [#/Vol] 8.0 10*3/uL 3.8-11.6 [facility] Lipaseon 09-06-2022 Lipase [Catalytic activity/Vol] 20.0 U/L Normal 11.0-82.0 [facility] Comment on above: Result Comment: PERF ORMED BY:[address] [address] [place], [place] [id number] MEDICAL DIRECTORNATALIA MIKE M.D. Performed By: #### C UBLD, LACTIC, CBC, HEPATIC, BMP, LIPASE ####[facility] [address] [place] [address] [place] Lipase [Enzymatic activity/v olume] in Serum or PlasmaOrdered By: Giacomo West on 09-06-2022 Lipase [Catalytic activity/Vol] 20.0 U/L 11.0-82.0 [facility] Lymphocytes Auto (Bld) [#/Vo l]Ordered By: Giacomo West on 09-06-2022 Lymphocytes (Bld) [#/Vol] 2.1 10*3/uL 1.00-4.8 [facility] Lymphocytes/100 WBC Auto (Bl d)Ordered By: Giacomo West on 09-06-2022 Lymphocytes/100 WBC (Bld) 26.6 % . [facility] MCH Auto (RBC) [Entitic mass ]Ordered By: Giacomo West on 09-06-2022 MCH (RBC) [Entitic mass] 30.3 pg 24.7-34.3 [facility] MCHC Auto (RBC) [Mass/Vol]Or dered By: Giacomo West on 09-06-2022 MCHC (RBC) [Mass/Vol] 34.8 g/dL 32.0-35.0 [facility] MCV Auto (RBC) [Entitic vol] Ordered By: Giacomo eWst on 09-06-2022 MCV (RBC) [Entitic vol] 87.2 fL 80-100 [facility] Monocyte distribution width [Entitic volume] in Blood by AutomatedOrdered By: Giacomo West on 09-06-2022 Monocyte distribution width Auto (Bld) [Entitic vol] 19.20 % 0.00-20.00 [facility] Monocytes Auto (Bld) [#/Vol] Ordered By: Giacomo West on 09-06-2022 Monocytes (Bld) [#/Vol] 0.5 10*3/uL 0.0-0.8 [facility] Monocytes/100 WBC Auto (Bld) Ordered By: Giacomo West on 09-06-2022 Monocytes/100 WBC (Bld) 6.7 % . [facility] Neutrophils Auto (Bld) [#/Vo l]Ordered By: Giacomo West on 09-06-2022 Neutrophils (Bld) [#/Vol] 4.6 10*3/uL 1.8-7.7 [facility] Neutrophils/100 WBC Auto (Bl d)Ordered By: Giacomo West on 09-06-2022 Neutrophils/100 WBC (Bld) 57.0 % . [facility] Nitrite Test strip Ql (U)Ord ered By: Giacomo West on 09-06-2022 Nitrite Ql (U) Negative Negative [facility] No Panel InformationOrdered By: Giacomo West on 09-06-2022 Pharmacy Creatinine Clearance (Chem 145.09 [facility] > 60.0 [facility] 145.09 [facility] 0-8 [LPF] 0-8 [facility] Nucleated erythrocytes [Pres ence] in Blood by Automated countOrdered By: Giacomo West on 09-06-2022 Nucleated RBC Auto Ql (Bld) 0.0 /100{WBC} 0-0.5 [facility] Platelet mean volume Auto (B ld) [Entitic vol]Ordered By: Giacomo West on 09-06-2022 Platelet mean volume (Bld) [Entitic vol] 6.9 fL 6.3-10.7 [facility] Platelets Auto (Bld) [#/Vol] Ordered By: Giacomo West on 09-06-2022 Platelets (Bld) [#/Vol] 216 10*3/uL 150-450 [facility] Potassium [Moles/volume] in Serum or PlasmaOrdered By: Giacomo West on 09-06-2022 Potassium [Moles/Vol] 3.8 mmol/L 3.5-5.1 [facility] Protein Auto test strip (U) [Mass/Vol]Ordered By: Giacomo West on 09-06-2022 Protein (U) [Mass/Vol] Trace mg/dL Negative F [facility] Protein [Mass/volume] in Ser um or PlasmaOrdered By: Giacomo West on 09-06-2022 Protein [Mass/Vol] 7.3 g/dL 6.4-8.9 [facility] RBC Auto (Bld) [#/Vol]Ordere d By: Giacomo West on 09-06-2022 RBC (Bld) [#/Vol] 4.18 10*6/uL 3.60-5.00 [facility] Serum or plasma albumin/glob ulin mass ratioOrdered By: Giacomo West on 09-06-2022 Albumin/Globulin [Mass ratio] 1.5 {ratio} [facility] Serum or plasma anion gap de terminationOrdered By: Giacomo West on 09-06-2022 Anion gap [Moles/Vol] 9.1 mmol/L 6.0-15.0 [facility] Serum or plasma non-glucuron idated bilirubin measurement (mass/volume)Ordered By: Giacomo West on 09-06-2022 Bilirubin.indirect [Mass/Vol] 0.3 mg/dL [facility] Sodium [Moles/volume] in Ser um or PlasmaOrdered By: Giacomo West on 09-06-2022 Sodium [Moles/Vol] 140 mmol/L 136-145 [facility] Specific gravity Auto test s trip (U) [Rel density]Ordered By: Giacomo West on 09-06-2022 Specific gravity (U) [Rel density] 1.028 1.001-1.[address] [facility] Squamous epithelial cells de tection in urine sediment by light microscopyOrdered By: Giacomo West on 09-06-2022 Epithelial cells.squamous LM Ql (Urine sed) 3-4 [HPF] 0-2 [facility] Urea nitrogen [Mass/volume] in Serum or PlasmaOrdered By: Giacomo West on 09-06-2022 Urea nitrogen [Mass/Vol] 18 mg/dL 7-25 [facility] Urine Cultureon 09-06-2022 Bacteria identified Cx Nom (U) Normal [facility] Comment on above: Performed By: #### A JOANA, CHENCHOCG, CUU ####[facility] [id number] [place] [address] [place] Urine bacteria detection by automated methodOrdered By: Giacomo West on 09-06-2022 Bacteria Auto Ql (U) None seen None Seen [facility] Urine clarity by refractomet ry automatedOrdered By: Giacomo West on 09-06-2022 Clarity Refractometry automated (U) Cloudy Clear [facility] Urine culture routineOrdered By: Giacomo West on 09-06-2022 Bacteria identified Cx Nom (U) [address] [facility] Urine glucose measurement by automated test strip (mass/volume)Ordered By: Giacomo West on 09-06-2022 Glucose Auto test strip (U) [Mass/Vol] Normal mg/dL Normal [facility] Urine hemoglobin detection b y automated test stripOrdered By: Giacomo West on 09-06-2022 Hemoglobin Auto test strip Ql (U) 3+ Negative [facility] Urine leukocyte esterase det ection by automated test stripOrdered By: Giacomo West on 09-06-2022 Leukocyte esterase Auto test strip Ql (U) 4+ Negative [facility] Urobilinogen Auto test strip (U) [Mass/Vol]Ordered By: Giacomo West on 09-06-2022 Urobilinogen (U) [Mass/Vol] Normal mg/dL Normal [facility] WBC Auto (Bld) [#/Vol]Ordere d By: Giacomo West on 09-06-2022 WBC (Bld) [#/Vol] 8.0 10*3/uL 3.8-11.6 [facility] pH Auto test strip (U)Ordere d By: Giacomo West on 09-06-2022 pH (U) 5.5 [pH] 5.0-9.0 [facility] Blood Cultureon 08-29-2022 Bacteria identified Cx Nom (Bld) NO GROWTH 5 DAYS PERFORMED BY: [address] [id number] PATHOLOGIST [employer] NATALIA MIKE M.D. [facility] Comment on above: Performed By: #### C UBLD, LACTIC ####[facility] [place] [address] [place] Bacteria identified Cx Nom (Bld) NO GROWTH 5 DAYS PERFORMED BY: [address] [place] [address] PATHOLOGIST [employer]IN [employer]IVER NATALIA MIKE M.D. [facility] Comment on above: Performed By: #### C UBLD, LACTIC ####[facility] [id number] [place] [address] abdomen pelvis wo conon 0 08-29-2022 CT abdomen pelvis wo con Normal [facility] Lactic Acidon 08-29-2022 Lactate [Moles/Vol] 0.9 mmol/L Normal 0.5-2.2 [facility] Comment on above: Result Comment: PERF ORMED BY:[address] [place], [place] [phone] MEDICAL DIRECTORNATALIA MIKE M.D. Performed By: #### C UBLD, LACTIC ####[facility] [id number] [place] [address] [place] Albumin [Mass/volume] in Bod y fluidOrdered By: Gurwinder Philippe on 08-28-2022 Albumin (Body fld) [Mass/Vol] 3.9 g/dL 3.2-5.5 [facility] Alkaline phosphatase [Enzyma tic activity/volume] in Serum or PlasmaOrdered By: Gurwinder Philippe on 08-28-2022 ALP [Catalytic activity/Vol] 64 U/L 32-92 [facility] Aspartate aminotransferase [ Enzymatic activity/volume] in Serum or PlasmaOrdered By: Gurwinder Philippe on 08-28-2022 AST [Catalytic activity/Vol] 18 U/L 10-42 [facility] Automated erythrocytes count in urine sediment (number/area)Ordered By: Gurwinder Philippe on 08-28-2022 RBC Auto (Urine sed) [#/Area] Innumerable [HPF] 0-4 [facility] Automated leukocytes count i n urine sediment (number/area)Ordered By: Gurwinder Philippe on 08-28-2022 WBC Auto (Urine sed) [#/Area] 50-100 [HPF] 0-4 [facility] Bacterial blood cultureOrder ed By: Gurwinder Philippe on 08-28-2022 Bacteria identified Cx Nom (Bld) NO GROWTH [address] [facility] Bacteria identified Cx Nom (Bld) NO GROWTH [address] [facility] Basic Metabolic Panelon Anion gap [Moles/Vol] 15.3 mmol/L High 6.0-15.0 [facility] Comment on above: Performed By: #### H EPATIC, DIFF CBC, LIPASE, BMP ####[id number] [place] [address] [place] Calcium [Mass/Vol] 9.4 mg/dL Normal 8.2-10.2 [facility] Comment on above: Performed By: #### H EPATIC, DIFF CBC, LIPASE, BMP ####[place] [id number] [place] Chloride [Moles/Vol] 102 mmol/L Normal 95-114 [facility] Comment on above: Performed By: #### H EPATIC, DIFF CBC, LIPASE, BMP ####[place] [id number] [place] CO2 [Moles/Vol] 23.8 mmol/L Normal 22.0-30.0 [facility] Comment on above: Performed By: #### H EPATIC, DIFF CBC, LIPASE, BMP ####[place] [id number] [place] Creatinine [Mass/Vol] 0.72 mg/dL Normal 0.44-1.03 [facility] Comment on above: Performed By: #### H EPATIC, DIFF CBC, LIPASE, BMP ####[place] [id number] [place] Creatinine Clr Calc Pharmacy 129.28 [facility] Comment on above: Performed By: #### H EPATIC, DIFF CBC, LIPASE, BMP ####[place] [id number] [place] Estimated GFR ( Digna > 60 [facility] Comment on above: Result Comment: GFR estimated reference range: According to KDOQI guidelines, <60 ml/min/1.73m2 is sufficient to diagnose a patient with chronic kidney disease. Performed By: #### H EPATIC, DIFF CBC, LIPASE, BMP ####[address] Estimated GFR (Non- Am > [address] [facility] Comment on above: Performed By: #### H EPATIC, DIFF CBC, LIPASE, BMP ####[place] [address] [place] [id number] [place] Glucose [Mass/Vol] 183 mg/dL High 70-100 [facility] Comment on above: Result Comment: [place] Glucose Reference Range is dependent on time and content of last meal. Glucose of more than 200 mg/dL in a nonstressed, ambulatory subject supports the diagnosis of Diabetes Mellitus. ADA recommended reference range Performed By: #### H EPATIC, DIFF CBC, LIPASE, BMP ####[place] [id number] [place] [id number] [place] Potassium [Moles/Vol] 4.1 mmol/L Normal 3.5-5.1 [facility] Comment on above: Performed By: #### H EPATIC, DIFF CBC, LIPASE, BMP ####[place] [id number] [place] [id number] [place] Sodium [Moles/Vol] 137 mmol/L Normal 136-146 [facility] Comment on above: Performed By: #### H EPATIC, DIFF CBC, LIPASE, BMP ####[place] [id number] [place] Urea nitrogen [Mass/Vol] 16 mg/dL Normal 9-23 [facility] Comment on above: Performed By: #### H EPATIC, DIFF CBC, LIPASE, BMP ####[place] [id number] [place] Basophils Auto (Bld) [#/Vol] Ordered By: Gurwinder Philippe on 08-28-2022 Basophils (Bld) [#/Vol] N/A [facility] Basophils/100 WBC Auto (Bld) Ordered By: Gurwinder Philippe on 08-28-2022 Basophils/100 WBC (Bld) N/A [facility] Basophils/100 WBC Manual cnt (Bld)Ordered By: Gurwinedr Philippe on 08-28-2022 Basophils/100 WBC (Bld) 4 % 0-2 [facility] Bilirubin Test strip Ql (U)O rdered By: Gurwinder Philippe on 08-28-2022 Bilirubin Ql (U) Negative Negative [facility] Bilirubin.direct [Mass/volum e] in Serum or PlasmaOrdered By: Gurwinder Philippe on 08-28-2022 Bilirubin.direct [Mass/Vol] 0.2 mg/dL 0.0-0.4 [facility] Bilirubin.total [Mass/volume ] in Serum or PlasmaOrdered By: Gurwinder Philippe on 08-28-2022 Bilirubin [Mass/Vol] 0.7 mg/dL 0.3-1.2 [facility] Calcium [Mass/volume] in Ser um or PlasmaOrdered By: Gurwinder Philippe on 08-28-2022 Calcium [Mass/Vol] 9.4 mg/dL 8.2-10.2 [facility] Carbon dioxide, total [Moles /volume] in Serum or PlasmaOrdered By: Gurwinder Philippe on 08-28-2022 CO2 [Moles/Vol] 23.8 mmol/L 22.0-30.0 [facility] Chloride [Moles/volume] in S jaron or PlasmaOrdered By: Gurwinder Philippe on 08-28-2022 Chloride [Moles/Vol] 102 mmol/L 95-114 [facility] Color Auto (U)Ordered By: Suzan Philippe on 08-28-2022 Color (U) Yellow Yellow [facility] Creatinine and Glomerular fi ltration rate.predicted panel (S/P/Bld)Ordered By: Gurwinder Philippe on 08-28-2022 Creatinine [Mass/Vol] 0.72 mg/dL 0.44-1.03 [facility] Diff and CBCon 08-28-2022 Basophils/100 WBC (Bld) 4 % High 0-2 [facility] Comment on above: Performed By: #### H EPATIC, DIFF CBC, LIPASE, BMP ####[facility] [id number] [place] [id number] [place] Eosinophils/100 WBC (Bld) 5 % High 1-3 [facility] Comment on above: Performed By: #### H EPATIC, DIFF CBC, LIPASE, BMP ####[place] [id number] Erythrocyte distribution width (RBC) [Ratio] 12.4 % Normal 11.9-15.3 [facility] Comment on above: Performed By: #### H EPATIC, DIFF CBC, LIPASE, BMP ####[address] Giant Platelet Tally 2 /100{WBC} Normal [facility] Comment on above: Performed By: #### H EPATIC, DIFF CBC, LIPASE, BMP ####[address] Hematocrit (Bld) [Volume fraction] 38.7 % Normal 34.0-46.4 [facility] Comment on above: Performed By: #### H EPATIC, DIFF CBC, LIPASE, BMP ####[address] Hemoglobin (Bld) [Mass/Vol] 13.3 g/dL Normal 11.8-15.4 [facility] Comment on above: Performed By: #### H EPATIC, DIFF CBC, LIPASE, BMP ####[address] Lymphocytes/100 WBC (Bld) 13 % Low 18-42 [facility] Comment on above: Performed By: #### H EPATIC, DIFF CBC, LIPASE, BMP ####[address] MCH (RBC) [Entitic mass] 30.2 pg Normal 24.7-34.3 [facility] Comment on above: Performed By: #### H EPATIC, DIFF CBC, LIPASE, BMP ####[address] MCV (RBC) [Entitic vol] 87.7 fL Normal 80-100 [facility] Comment on above: Performed By: #### H EPATIC, DIFF CBC, LIPASE, BMP ####[address] Mean Corpuscular HGB Conc 34.4 g/dL Normal 32.0-35.0 [facility] Comment on above: Performed By: #### H EPATIC, DIFF CBC, LIPASE, BMP ####[place] [id number] [place] Monocytes/100 WBC (Bld) 20.35 % High 0.00-20.00 [facility] Comment on above: Result Comment: For adults in ED, MDW > 20.0 may be associated with a higher risk of sepsis during the first 12 hrs of hospital admission Performed By: #### H EPATIC, DIFF CBC, LIPASE, BMP ####[place] [id number] [place] Monocytes/100 WBC (Bld) 7 % Normal 2-11 [facility] Comment on above: Performed By: #### H EPATIC, DIFF CBC, LIPASE, BMP ####[place] [id number] [place] Platelet Estimate Normal Normal Normal [facility] Comment on above: Performed By: #### H EPATIC, DIFF CBC, LIPASE, BMP ####[place] [id number] [place] Platelet mean volume (Bld) [Entitic vol] 7.9 fL Normal 6.3-10.7 [facility] Comment on above: Performed By: #### H EPATIC, DIFF CBC, LIPASE, BMP ####[place] [id number] [place] Platelet Morphology Normal Normal Normal [facility] Comment on above: Result Comment: PERF ORMED BY:[address] [place], [place] [phone] MEDICAL RONAN MIKE M.D. Performed By: #### H EPATIC, DIFF CBC, LIPASE, BMP ####[place] [id number] [place] Platelets (Bld) [#/Vol] 223 10*3/uL Normal 150-450 [facility] Comment on above: Performed By: #### H EPATIC, DIFF CBC, LIPASE, BMP ####[address] [address] [place] RBC (Bld) [#/Vol] 4.41 10*6/uL Normal 3.60-5.00 [facility] Comment on above: Performed By: #### H EPATIC, DIFF CBC, LIPASE, BMP ####[address] RBC morphology finding Nom (Bld) Normal Normal Normal [facility] Comment on above: Performed By: #### H EPATIC, DIFF CBC, LIPASE, BMP ####[address] Segmented neutrophils/100 WBC (Bld) 72 % High 50-70 [facility] Comment on above: Performed By: #### H EPATIC, DIFF CBC, LIPASE, BMP ####[address] WBC (Bld) [#/Vol] 16.2 10*3/uL High 3.8-11.6 [facility] Comment on above: Performed By: #### H EPATIC, DIFF CBC, LIPASE, BMP ####[address] WBC (Bld) [#/Vol] 19.7 10*3/uL High 3.8-11.6 [facility] Comment on above: Performed By: #### H EPATIC, DIFF CBC, LIPASE, BMP ####[address] Dipstick and Microscopicon 0 08-28-2022 Appearance (U) Cloudy Critically abnormal Clear [facility] Comment on above: Order Comment: Name Collection Type:: Clean-Voided Midstream Performed By: #### C UU, ADDONUAPLUS ####[address] Bacteria,Urine None Seen Normal None Seen [facility] Comment on above: Order Comment: Name Collection Type:: Clean-Voided Midstream Performed By: #### C UU, ADDONUAPLUS ####[address] [address] [place] Bilirubin,Urine Negative Normal Negative [facility] Comment on above: Order Comment: Name Collection Type:: Clean-Voided Midstream Performed By: #### C UU, ADDONUAPLUS ####[address] [address] [place] Color (U) Yellow Normal Yellow [facility] Comment on above: Order Comment: Name Collection Type:: Clean-Voided Midstream Performed By: #### C UU, ADDONUAPLUS ####[address] [address] [place] Glucose Ql (U) Normal Normal Normal [facility] Comment on above: Order Comment: Name Collection Type:: Clean-Voided Midstream Performed By: #### C UU, ADDONUAPLUS ####[address] [address] [place] Hyaline Casts,Urine 0-8 Normal 0-8 [facility] Comment on above: Order Comment: Name Collection Type:: Clean-Voided Midstream Result Comment: PERF ORMED BY:[address] [place], [place] [phone] MEDICAL DIRECTORNATALIA MIKE M.D. Performed By: #### C UU, ADDONUAPLUS ####[address] [address] [place] Ketones Ql (U) Trace High Negative [facility] Comment on above: Order Comment: Name Collection Type:: Clean-Voided Midstream Performed By: #### C UU, ADDONUAPLUS ####[address] [address] [place] Leukocyte esterase Test strip Ql (U) 3+ High Negative [facility] Comment on above: Order Comment: Name Collection Type:: Clean-Voided Midstream Performed By: #### C UU, ADDONUAPLUS ####[address] [address] [place] Nitrite,Urine Negative Normal Negative [facility] Comment on above: Order Comment: Name Collection Type:: Clean-Voided Midstream Performed By: #### C UU, ADDONUAPLUS ####[address] [address] [place] Occult Blood,Urine 3+ High Negative [facility] Comment on above: Order Comment: Name Collection Type:: Clean-Voided Midstream Result Comment: PERF ORMED BY:[address] [place], [place] [id number] MEDICAL RONAN MIKE M.D. Performed By: #### C UU, ADDONUAPLUS ####[address] [address] [place] pH (U) 5.5 [pH] Normal 5.0-9.0 [facility] Comment on above: Order Comment: Name Collection Type:: Clean-Voided Midstream Performed By: #### C UU, ADDONUAPLUS ####[place] [id number] [place] Protein (U) [Mass/Vol] 30 mg/dL High Negative [facility] Comment on above: Order Comment: Name Collection Type:: Clean-Voided Midstream Performed By: #### C UU, ADDONUAPLUS ####[place] [id number] [place] RBC,Urine Innumerable High 0-4 [facility] Comment on above: Order Comment: Name Collection Type:: Clean-Voided Midstream Performed By: #### C UU, ADDONUAPLUS ####[address] [address] [place] Specificy [place],Urine 1.031 High 1.001-1.[address] [facility] Comment on above: Order Comment: Name Collection Type:: Clean-Voided Midstream Performed By: #### C UU, ADDONUAPLUS ####[place] [id number] [place] Squamous Epithelial Cell,Urine 3-4 High 0-2 [facility] Comment on above: Order Comment: Name Collection Type:: Clean-Voided Midstream Performed By: #### C UU, ADDONUAPLUS ####[facility] [id number] [place] [id number] [place] Urobilinogen,Urine Normal Normal Normal [facility] Comment on above: Order Comment: Name Collection Type:: Clean-Voided Midstream Performed By: #### C UU, ADDONUAPLUS ####[facility] [address] [place] [id number] [place] WBC,Urine 50-100 High 0-4 [facility] Comment on above: Order Comment: Name Collection Type:: Clean-Voided Midstream Performed By: #### C UU, ADDONUAPLUS ####[place] [id number] ECG 12 lead ECGon 08-28-2022 ECG [address] [facility] Eosinophils Auto (Bld) [#/Vo l]Ordered By: Gurwinder Philippe on 08-28-2022 Eosinophils (Bld) [#/Vol] N/A [facility] Eosinophils/100 WBC Auto (Bl d)Ordered By: Gurwinder Philippe on 08-28-2022 Eosinophils/100 WBC (Bld) N/A [facility] Eosinophils/100 WBC Manual c nt (Bld)Ordered By: Gurwinder Philippe on 08-28-2022 Eosinophils/100 WBC (Bld) 5 % 1-3 [facility] Erythrocyte distribution wid th Auto (RBC) [Ratio]Ordered By: Gurwinder Philippe on 08-28-2022 Erythrocyte distribution width (RBC) [Ratio] 12.4 % 11.9-15.3 [facility] Estimated glomerular filtrat ion rate (GFR) non- AmericanOrdered By: Gurwinder Philippe on 08-28-2022 GFR/1.73 sq M.predicted among non-blacks MDRD (S/P/Bld) [Vol rate/Area] > 60 mL/Min [facility] Giant platelets/100 leukocyt es [Ratio] in Blood by Manual countOrdered By: Gurwinder Philippe on 08-28-2022 Giant platelets/100 WBC Manual cnt (Bld) [Ratio] 2 /100{WBC} [facility] Globulin Calc (S) [Mass/Vol] Ordered By: Gurwinder Philippe on 08-28-2022 Globulin (S) [Mass/Vol] 3.0 g/dL [facility] Glucose [Mass/volume] in Ser um or PlasmaOrdered By: Gurwinder Philippe on 08-28-2022 Glucose [Mass/Vol] 183 mg/dL 70-100 [facility] Comment on above: ADA recommended refe rence rangeRandom Glucose Reference Range is dependent on time and content of last meal. Glucose of more than 200 mg/dL in a nonstressed, ambulatory subject supports the diagnosis of Diabetes Mellitus. Hematocrit Auto (Bld) [Volum e fraction]Ordered By: Gurwinder Philippe on 08-28-2022 Hematocrit (Bld) [Volume fraction] 38.7 % 34.0-46.4 [facility] Hemoglobin [Mass/volume] in BloodOrdered By: Gurwinder Philippe on 08-28-2022 Hemoglobin (Bld) [Mass/Vol] 13.3 g/dL 11.8-15.4 [facility] Hepatic Panelon 08-28-2022 Albumin [Mass/Vol] 3.9 g/dL Normal 3.2-5.5 [facility] Comment on above: Performed By: #### H EPATIC, DIFF CBC, LIPASE, BMP ####[place] [address] Albumin/Globulin [Mass ratio] 1.3 {ratio} Normal [facility] Comment on above: Performed By: #### H EPATIC, DIFF CBC, LIPASE, BMP ####[place] [id number] [place] [id number] [place] ALP [Catalytic activity/Vol] 64 U/L Normal 32-92 [facility] Comment on above: Performed By: #### H EPATIC, DIFF CBC, LIPASE, BMP ####[place] [id number] [place] ALT [Catalytic activity/Vol] 15 U/L Normal 10-60 [facility] Comment on above: Performed By: #### H EPATIC, DIFF CBC, LIPASE, BMP ####[place] [id number] [place] AST [Catalytic activity/Vol] 18 U/L Normal 10-42 [facility] Comment on above: Performed By: #### H EPATIC, DIFF CBC, LIPASE, BMP ####[address] Bilirubin [Mass/Vol] 0.7 mg/dL Normal 0.3-1.2 [facility] Comment on above: Performed By: #### H EPATIC, DIFF CBC, LIPASE, BMP ####[address] Bilirubin,Indirect 0.5 mg/dL Normal [facility] Comment on above: Performed By: #### H EPATIC, DIFF CBC, LIPASE, BMP ####[address] Bilirubin.indirect [Mass/Vol] 0.2 mg/dL Normal 0.0-0.4 [facility] Comment on above: Performed By: #### H EPATIC, DIFF CBC, LIPASE, BMP ####[address] Globulin (S) [Mass/Vol] 3.0 g/dL Normal [facility] Comment on above: Performed By: #### H EPATIC, DIFF CBC, LIPASE, BMP ####[address] Protein [Mass/Vol] 6.9 g/dL Normal 6.1-7.9 [facility] Comment on above: Performed By: #### H EPATIC, DIFF CBC, LIPASE, BMP ####[address] Ketones Auto test strip (U) [Mass/Vol]Ordered By: Gurwinder Philippe on 08-28-2022 Ketones (U) [Mass/Vol] Trace Negative [facility] - Chemistry and C hemistry - challengeOrdered By: Gurwinder Philippe on 08-28-2022 Lipase [Catalytic activity/Vol] 40.0 U/L 22-51 [facility] - UrinalysisOrder ed By: Gurwinder Philippe on 08-28-2022 Hyaline casts LM Ql (Urine sed) 0-8 [LPF] 0-8 [facility] Leukocytes [#/volume] correc suzanne for nucleated erythrocytes in Blood by Automated counOrdered By: Gurwinder Philippe on 08-28-2022 WBC corrected for nucl RBC Auto (Bld) [#/Vol] 16.2 10*3/uL 3.8-11.6 [facility] Lipaseon 08-28-2022 Lipase [Catalytic activity/Vol] 40.0 U/L Normal 22-51 [facility] Comment on above: Result Comment: PERF ORMED BY:[address] [place], [place] [id number] MEDICAL DIRECTORNATALIA MIKE M.D. Performed By: #### H EPATIC, DIFF CBC, LIPASE, BMP ####[facility] [id number] [place] [address] [place] Lymphocytes Auto (Bld) [#/Vo l]Ordered By: Gurwinder Philippe on 08-28-2022 Lymphocytes (Bld) [#/Vol] N/A [facility] Lymphocytes/100 WBC Auto (Bl d)Ordered By: Gurwinder Philippe on 08-28-2022 Lymphocytes/100 WBC (Bld) N/A [facility] Lymphocytes/100 WBC Manual c nt (Bld)Ordered By: Gurwinder Philippe on 08-28-2022 Lymphocytes/100 WBC (Bld) 13 % 18-42 [facility] MCH Auto (RBC) [Entitic mass ]Ordered By: Gurwinder Philippe on 08-28-2022 MCH (RBC) [Entitic mass] 30.2 pg 24.7-34.3 [facility] MCHC Auto (RBC) [Mass/Vol]Or dered By: Gurwinder Philippe on 08-28-2022 MCHC (RBC) [Mass/Vol] 34.4 g/dL 32.0-35.0 [facility] MCV Auto (RBC) [Entitic vol] Ordered By: Gurwinder Pihlippe on 08-28-2022 MCV (RBC) [Entitic vol] 87.7 fL 80-100 [facility] Monocyte distribution width [Entitic volume] in Blood by AutomatedOrdered By: Gurwinder Philippe on 08-28-2022 Monocyte distribution width Auto (Bld) [Entitic vol] 20.35 % 0.00-20.00 [facility] Comment on above: For adults in ED, MD W > 20.0 may be associated with a higher risk of sepsis during the first 12 hrs of hospital admission Monocytes Auto (Bld) [#/Vol] Ordered By: Gurwinder Philippe on 08-28-2022 Monocytes (Bld) [#/Vol] N/A [facility] Monocytes/100 WBC Auto (Bld) Ordered By: Gurwinder Philippe on 08-28-2022 Monocytes/100 WBC (Bld) N/A [facility] Monocytes/100 WBC Manual cnt (Bld)Ordered By: Gurwinder Philippe on 08-28-2022 Monocytes/100 WBC (Bld) 7 % 2-11 [facility] Neutrophils Auto (Bld) [#/Vo l]Ordered By: Gurwinder Philippe on 08-28-2022 Neutrophils (Bld) [#/Vol] N/A [facility] Neutrophils/100 WBC Auto (Bl d)Ordered By: Gurwinder Philippe on 08-28-2022 Neutrophils/100 WBC (Bld) N/A [facility] Nitrite Test strip Ql (U)Ord ered By: Gurwinder Philippe on 08-28-2022 Nitrite Ql (U) Negative Negative [facility] No Panel InformationOrdered By: Gurwinder Philippe on 08-28-2022 Estimated GFR () > 60 mL/Min [facility] Comment on above: GFR estimated refere nce range: According to KDOQI guidelines, <60 ml/min/1.73m2 is sufficient to diagnose a patient with chronic kidney disease. Pharmacy Creatinine Clearance (Chem 129.28 [facility] > 60 mL/Min [facility] 40.0 U/L 22-51 [facility] 129.28 [facility] 0-8 [LPF] 0-8 [facility] Nucleated erythrocytes [Pres ence] in Blood by Automated countOrdered By: Gurwinder Philippe on 08-28-2022 Nucleated RBC Auto Ql (Bld) N/A [facility] Platelet adequacy [Presence] in Blood by Light microscopyOrdered By: Gurwinder Philippe on 08-28-2022 Platelets LM Ql (Bld) Normal Normal [facility] Platelet mean volume Auto (B ld) [Entitic vol]Ordered By: Gurwinder Philippe on 08-28-2022 Platelet mean volume (Bld) [Entitic vol] 7.9 fL 6.3-10.7 [facility] Platelet morphology finding [Identifier] in BloodOrdered By: Gurwinder Philippe on 08-28-2022 Platelet morphology finding Nom (Bld) Normal Normal [facility] Platelets Auto (Bld) [#/Vol] Ordered By: Gurwinder Philippe on 08-28-2022 Platelets (Bld) [#/Vol] 223 10*3/uL 150-450 [facility] Potassium [Moles/volume] in Serum or PlasmaOrdered By: Gurwinder Philippe on 08-28-2022 Potassium [Moles/Vol] 4.1 mmol/L 3.5-5.1 [facility] Protein Auto test strip (U) [Mass/Vol]Ordered By: Gurwinder Philippe on 08-28-2022 Protein (U) [Mass/Vol] 30 mg/dL Negative [facility] Protein [Mass/volume] in Ser um or PlasmaOrdered By: Gurwinder Philippe on 08-28-2022 Protein [Mass/Vol] 6.9 g/dL 6.1-7.9 [facility] RBC Auto (Bld) [#/Vol]Ordere d By: Gurwinder Philippe on 08-28-2022 RBC (Bld) [#/Vol] 4.41 10*6/uL 3.60-5.00 [facility] RBC morphologyOrdered By: Suzan Philippe on 08-28-2022 RBC morphology finding Nom (Bld) Normal Normal [facility] Segmented neutrophils/100 WB C Manual cnt (Bld)Ordered By: Gurwinder Philippe on 08-28-2022 Segmented neutrophils/100 WBC (Bld) 72 % 50-70 [facility] Serum or plasma alanine slaughter otransferase measurement without P-5'-P (enzymatic activiOrdered By: Gurwinder Philippe on 08-28-2022 ALT No additional P-5'-P [Catalytic activity/Vol] 15 U/L 10-60 [facility] Serum or plasma albumin/glob ulin mass ratioOrdered By: Gurwinder Philippe on 08-28-2022 Albumin/Globulin [Mass ratio] 1.3 {ratio} [facility] Serum or plasma anion gap de terminationOrdered By: Gurwinder Philippe on 08-28-2022 Anion gap [Moles/Vol] 15.3 mmol/L 6.0-15.0 [facility] Serum or plasma creatinine m easurement with calculation of estimated glomerular filtrOrdered By: Gurwinder Philippe on 08-28-2022 Creatinine and Glomerular filtration rate.predicted panel (S/P/Bld) 0.72 mg/dL 0.44-1.03 [facility] Serum or plasma non-glucuron idated bilirubin measurement (mass/volume)Ordered By: Gurwinder Philippe on 08-28-2022 Bilirubin.indirect [Mass/Vol] 0.5 mg/dL [facility] Sodium [Moles/volume] in Ser um or PlasmaOrdered By: Gurwinder Philippe on 08-28-2022 Sodium [Moles/Vol] 137 mmol/L 136-146 [facility] Specific gravity Auto test s trip (U) [Rel density]Ordered By: Gurwinder Philippe on 08-28-2022 Specific gravity (U) [Rel density] 1.031 1.001-1.[address] [facility] Squamous epithelial cells de tection in urine sediment by light microscopyOrdered By: Gurwinder Philippe on 08-28-2022 Epithelial cells.squamous LM Ql (Urine sed) 3-4 [HPF] 0-2 [facility] Urea nitrogen [Mass/volume] in Serum or PlasmaOrdered By: Gurwinder Philippe on 08-28-2022 Urea nitrogen [Mass/Vol] 16 mg/dL 9-23 [facility] Urine Cultureon 08-28-2022 Bacteria identified Cx Nom (U) Normal [facility] Comment on above: Performed By: #### C UU, ADDONUAPLUS ####[facility] [id number] [place] [id number] [place] Urine bacteria detection by automated methodOrdered By: Gurwinder Philippe on 08-28-2022 Bacteria Auto Ql (U) None seen None Seen [facility] Urine clarity by refractomet ry automatedOrdered By: Gurwinder Philippe on 08-28-2022 Clarity Refractometry automated (U) Cloudy Clear [facility] Urine culture routineOrdered By: Gurwinder Philippe on 08-28-2022 Bacteria identified Cx Nom (U) [address] [facility] Bacteria identified Cx Nom (U) [address] [facility] Urine glucose measurement by automated test strip (mass/volume)Ordered By: Gurwinder Philippe on 08-28-2022 Glucose Auto test strip (U) [Mass/Vol] Normal mg/dL Normal [facility] Urine hemoglobin detection b y automated test stripOrdered By: Gurwinder Philippe on 08-28-2022 Hemoglobin Auto test strip Ql (U) 3+ Negative [facility] Urine lactic acid measuremen tOrdered By: Gurwinder Philippe on 08-28-2022 Lactate (U) [Moles/Vol] 0.9 mmol/L 0.5-2.2 [facility] Urine leukocyte esterase det ection by automated test stripOrdered By: Gurwinder Philippe on 08-28-2022 Leukocyte esterase Auto test strip Ql (U) 3+ Negative [facility] Urobilinogen Auto test strip (U) [Mass/Vol]Ordered By: Gurwinder Philippe on 08-28-2022 Urobilinogen (U) [Mass/Vol] Normal mg/dL Normal [facility] WBC Auto (Bld) [#/Vol]Ordere d By: Gurwinder Philippe on 08-28-2022 WBC (Bld) [#/Vol] 19.7 10*3/uL 3.8-11.6 [facility] pH Auto test strip (U)Ordere d By: Gurwinder Philippe on 08-28-2022 pH (U) 5.5 [pH] 5.0-9.0 [facility] CBC With Platelet and Differ entialon 08-25-2022 Basophils (Bld) [#/Vol] 0.1 10*3/uL Normal 0.0-0.2 [facility] Comment on above: Performed By: #### P GLU #### [facility] [address] [place] [address] Basophils/100 WBC (Bld) 1.0 % Normal [facility] Comment on above: Performed By: #### P GLU #### [facility] [address] [place] [address] Eosinophils (Bld) [#/Vol] 0.4 10*3/uL Normal 0.0-0.7 [facility] Comment on above: Performed By: #### P GLU #### [facility] [address] [place] [address] Eosinophils/100 WBC (Bld) 3.9 % Normal [facility] Comment on above: Performed By: #### P GLU #### [facility] [address] [place] [address] Erythrocyte distribution width (RBC) [Ratio] 12.6 % Normal 11.5-14.5 [facility] Comment on above: Performed By: #### P GLU #### [facility] [address] [place] [address] Hematocrit (Bld) [Volume fraction] 41.0 % Normal 37.0-47.0 [facility] Comment on above: Performed By: #### P GLU #### [facility] [address] [place] [address] Hemoglobin (Bld) [Mass/Vol] 14.3 g/dL Normal 12.0-16.0 [facility] Comment on above: Performed By: #### P GLU #### [facility] [address] [place] [address] Lymphocytes (Bld) [#/Vol] 2.0 10*3/uL Normal 1.0-4.8 [facility] Comment on above: Performed By: #### P GLU #### [facility] [address] [place] [address] Lymphocytes/100 WBC (Bld) 20.6 % Normal [facility] Comment on above: Performed By: #### P GLU #### [facility] [address] [place] [address] MCH (RBC) [Entitic mass] 30.8 pg Normal 27.0-31.3 [facility] Comment on above: Performed By: #### P GLU #### [facility] [address] [place] [address] MCHC 34.8 % Normal 33.0-37.0 [facility] Comment on above: Performed By: #### P GLU #### [facility] [address] [place] [address] MCV (RBC) [Entitic vol] 88.7 fL Normal 79.4-94.8 [facility] Comment on above: Performed By: #### P GLU #### [facility] [address] [place] [address] Monocytes (Bld) [#/Vol] 0.6 10*3/uL Normal 0.2-0.8 [facility] Comment on above: Performed By: #### P GLU #### [facility] [address] [place] [address] Monocytes/100 WBC (Bld) 6.6 % Normal [facility] Comment on above: Performed By: #### P GLU #### [facility] [address] [place] [address] Neutrophils (Bld) [#/Vol] 6.6 10*3/uL Critically high 1.4-6.5 [facility] Comment on above: Performed By: #### P GLU #### [facility] [address] [place] [address] Neutrophils/100 WBC (Bld) 67.9 % Normal [facility] Comment on above: Performed By: #### P GLU #### [facility] [address] [place] [address] Platelets (Bld) [#/Vol] 229 10*3/uL Normal 130-400 [facility] Comment on above: Performed By: #### P GLU #### [facility] [address] [place] [address] RBC (Bld) [#/Vol] 4.63 10*6/uL Normal 4.20-5.40 [facility] Comment on above: Performed By: #### P GLU #### [facility] [address] [place] [address] WBC (Bld) [#/Vol] 9.7 10*3/uL Normal 4.8-10.8 [facility] Comment on above: Performed By: #### P GLU #### [facility] [address] [place] [address] Comprehensive Metabolic Pane ben 08-25-2022 Albumin [Mass/Vol] 4.5 g/dL Normal 3.5-4.6 [facility] Comment on above: Performed By: #### U AR #### [facility] [address] [place] [address] ALP [Catalytic activity/Vol] 87 U/L Normal 40-130 [facility] Comment on above: Performed By: #### U AR #### [facility] [address] [place] [address] ALT [Catalytic activity/Vol] 14 U/L Normal 0-33 [facility] Comment on above: Result Comment: Spec imen hemolysis has exceeded the interference as defined by Mariah. Result may be affected. Suggest recollection if clinically indicated. Performed By: #### U AR #### [facility] [address] [place] [address] Anion gap [Moles/Vol] 13 mmol/L Normal 9-15 [facility] Comment on above: Performed By: #### U AR #### [facility] [address] [place] [address] AST [Catalytic activity/Vol] 23 U/L Normal 0-35 [facility] Comment on above: Result Comment: Spec imen hemolysis has exceeded the interference as defined by Mariah. Value may be falsely increased. Suggest recollection if clinically indicated. Performed By: #### U AR #### [facility] [address] [place] [address] Bilirubin [Mass/Vol] 0.4 mg/dL Normal 0.2-0.7 [facility] Comment on above: Performed By: #### U AR #### [facility] [address] [place] [address] Calcium [Mass/Vol] 9.6 mg/dL Normal 8.5-9.9 [facility] Comment on above: Performed By: #### U AR #### [facility] [address] [place] [address] Chloride [Moles/Vol] 104 mmol/L Normal 95-107 [facility] Comment on above: Performed By: #### U AR #### [facility] [address] [place] [address] CO2 [Moles/Vol] 23 mmol/L Normal 20-31 [facility] Comment on above: Performed By: #### U AR #### [facility] [address] [place] [address] Creatinine [Mass/Vol] 0.54 mg/dL Normal 0.50-0.90 [facility] Comment on above: Performed By: #### U AR #### [facility] [address] [place] [address] GFR >60.0 Normal >60 [facility] Comment on above: Result Comment: Carlene atric calculator link https://www.kidney.org/professionals/kdoqi/gfr_calculatorped Effective Mar 31, 2022 These results are not intended for use in patients <18 years of age. eGFR results are calculated without a race factor using the 2020 CKD-EPI equation. Careful clinical correlation is recommended, particularly when comparing to results calculated using previous equations. The CKD-EPI equation is less accurate in patients with extremes of muscle mass, extra-renal metabolism of creatinine, excessive creatinine ingestion, or following therapy that affects renal tubular secretion. Performed By: #### U AR #### [facility] [address] [place] [address] Globulin (S) [Mass/Vol] 3.4 g/dL Normal 2.3-3.5 [facility] Comment on above: Performed By: #### U AR #### [facility] [address] [place] [address] Glucose [Mass/Vol] 96 mg/dL Normal 70-99 [facility] Comment on above: Performed By: #### U AR #### [facility] [address] [place] [address] Potassium [Moles/Vol] 4.1 mmol/L Normal 3.4-4.9 [facility] Comment on above: Result Comment: Spec imen hemolysis has exceeded the interference as defined by Mariah. Value may be falsely increased. Suggest recollection if clinically indicated. Performed By: #### U AR #### [facility] [address] [place] [address] Protein [Mass/Vol] 7.9 g/dL Normal 6.3-8.0 [facility] Comment on above: Performed By: #### U AR #### [facility] [address] [place] [address] Sodium [Moles/Vol] 140 mmol/L Normal 135-144 [facility] Comment on above: Performed By: #### U AR #### [facility] [address] [place] [address] Urea nitrogen [Mass/Vol] 9 mg/dL Normal 6-20 [facility] Comment on above: Performed By: #### U AR #### [facility] [address] [place] [address] Lactic Acidon 08-25-2022 Lactate [Moles/Vol] 1.6 mmol/L Normal 0.5-2.2 [facility] Comment on above: Performed By: #### C MP #### [facility] [address] [place] [address] Urinalysis, reflex to micros copicon 08-25-2022 Bilirubin Ql (U) Negative Normal Negative [facility] Comment on above: Performed By: #### U AR #### [facility] [address] [place] [address] Clarity (U) Clear Normal Clear [facility] Comment on above: Performed By: #### U AR #### [facility] [address] [place] [address] Color (U) RED Abnormal Straw/Clay [facility] Comment on above: Performed By: #### U AR #### [facility] [address] [place] [address] Glucose Ql (U) Negative Normal Negative [facility] Comment on above: Performed By: #### U AR #### [facility] [address] [place] [address] Hemoglobin Ql (U) LARGE Abnormal Negative [facility] Comment on above: Performed By: #### U AR #### [facility] [address] [place] [address] Ketones Ql (U) Negative Normal Negative [facility] Comment on above: Performed By: #### U AR #### [facility] [address] [place] [address] Leukocyte esterase Test strip Ql (U) LARGE Abnormal Negative [facility] Comment on above: Performed By: #### U AR #### [facility] [address] [place] [address] Nitrite Ql (U) Negative Normal Negative [facility] Comment on above: Performed By: #### U AR #### [facility] [address] [place] [address] pH (U) 5.5 [pH] Normal 5.0-9.0 [facility] Comment on above: Performed By: #### U AR #### [facility] [address] [place] [address] Protein Ql (U) Negative Normal Negative [facility] Comment on above: Performed By: #### U AR #### [facility] [address] [place] [address] Specific gravity (U) [Rel density] 1.008 Normal 1.005-1.03 [facility] Comment on above: Performed By: #### U AR #### [facility] [address] [place] [address] Urobilinogen Qn (U) 0.2 {Diaz'U}/dL Normal < 2.0 [facility] Comment on above: Performed By: #### U AR #### [facility] [address] [place] [address] Urine Microscopicon 08-25-19 23 Bacteria LM.HPF (Urine sed) [#/Area] Negative Normal Negative [facility] Comment on above: Performed By: #### P GLU #### [facility] [address] [place] [address] Urine Epithelial Cells Auto 6-10 Normal 0-5 [facility] Comment on above: Performed By: #### P GLU #### [facility] [address] [place] [address] Urine Hyaline Casts Auto 1-3 Normal 0-5 [facility] Comment on above: Performed By: #### P GLU #### [facility] [address] [place] [address] Urine RBC Auto >100 Critically high 0-5 [facility] Comment on above: Performed By: #### P GLU #### [facility] [address] [place] [address] Urine WBC Auto 20-50 Abnormal 0-5 [facility] Comment on above: Performed By: #### P GLU #### [facility] [address] [place] [address] CBC with Auto Differentialon 08-24-2022 Basophils (Bld) [#/Vol] 0.1 10*3/uL 0.0 - 0.2 K/uL [facility] Basophils/100 WBC (Bld) 1.0 % [facility] Eosinophils (Bld) [#/Vol] 0.4 10*3/uL 0.0 - 0.7 K/uL [facility] Eosinophils/100 WBC (Bld) 3.9 % [facility] Hematocrit (Bld) [Volume fraction] 41.0 % 37.0 - 47.0 % [facility] Hemoglobin (Bld) [Mass/Vol] 14.3 g/dL 12.0 - 16.0 g/dL [facility] Interpretation and review of laboratory results Abnormal [facility] Lymphocytes (Bld) [#/Vol] 2.0 10*3/uL 1.0 - 4.8 K/uL [facility] Lymphocytes/100 WBC (Bld) 20.6 % [facility] MCH (RBC) [Entitic mass] 30.8 pg 27.0 - 31.3 pg [facility] MCHC (RBC) [Mass/Vol] 34.8 % 33.0 - 37.0 % [facility] MCV (RBC) [Entitic vol] 88.7 fL 79.4 - 94.8 fL [facility] Monocytes (Bld) [#/Vol] 0.6 10*3/uL 0.2 - 0.8 K/uL [facility] Monocytes/100 WBC (Bld) 6.6 % [facility] Neutrophils Absolute 6.6 K/uL High 1.4 - 6 .5 K/uL [facility] Neutrophils/100 WBC (Bld) 67.9 % [facility] Platelet distribution width (Bld) [Ratio] 12.6 % 11.5 - 14.5 % [facility] Platelets (Bld) [#/Vol] 229 10*3/uL 130 - 400 K/uL [facility] RBC (Bld) [#/Vol] 4.63 10*6/uL [facility] WBC (Bld) [#/Vol] 9.7 10*3/uL 4.8 - 10.8 K/uL [facility] CMPon 08-24-2022 Albumin [Mass/Vol] 4.5 g/dL 3.5 - 4.6 g/dL [facility] ALP (Bld) [Catalytic activity/Vol] 87 U/L 40 - 130 U/L [facility] ALT [Catalytic activity/Vol] 14 U/L 0 - 33 U/L [facility] Comment on above: Specimen hemolysis h as exceeded the interference as defined by Mariah. Result may be affected. Suggest recollection if clinically indicated. Anion gap [Moles/Vol] 13 mmol/L [facility] AST [Catalytic activity/Vol] 23 U/L 0 - 35 U/L [facility] Comment on above: Specimen hemolysis h as exceeded the interference as defined by Mariah. Value may be falsely increased. Suggest recollection if clinically indicated. Bilirubin [Mass/Vol] 0.4 mg/dL 0.2 - 0 .7 mg/dL [facility] Calcium [Mass/Vol] 9.6 mg/dL 8.5 - 9.9 mg/dL [facility] Chloride [Moles/Vol] 104 mmol/L [facility] CO2 [Moles/Vol] 23 mmol/L [facility] Creatinine [Mass/Vol] 0.54 mg/dL 0.50 - 0.90 mg/dL [facility] GFR/1.73 sq M.predicted MDRD (S/P/Bld) [Vol rate/Area] 60 - PINF [facility] Comment on above: Pediatric calculator link https://www.kidney.org/professionals/kdoqi/gfr_calculatorped Effective Mar 31, 2022 These results are not intended for use in patients <18 years of age. eGFR results are calculated without a race factor using the 2020 CKD-EPI equation. Careful clinical correlation is recommended, particularly when comparing to results calculated using previous equations. The CKD-EPI equation is less accurate in patients with extremes of muscle mass, extra-renal metabolism of creatinine, excessive creatinine ingestion, or following therapy that affects renal tubular secretion. Globulin (S) [Mass/Vol] 3.4 g/dL 2.3 - 3.5 g/dL [facility] Glucose [Mass/Vol] 96 mg/dL 70 - 99 mg/dL [facility] Potassium [Moles/Vol] 4.1 mmol/L [facility] Comment on above: Specimen hemolysis h as exceeded the interference as defined by Mariah. Value may be falsely increased. Suggest recollection if clinically indicated. Protein [Mass/Vol] 7.9 g/dL 6.3 - 8.0 g/dL [facility] Sodium [Moles/Vol] 140 mmol/L [facility] Urea nitrogen (BldV) [Mass/Vol] 9 mg/dL 6 - 20 mg/dL [facility] Lactic Acidon 08-24-2022 Lactate [Moles/Vol] 1.6 mmol/L 0.5 - 2. 2 mmol/L [facility] Microscopic Urinalysison Bacteria, UA Negative Negative /HPF [facility] Epithelial Cells, UA 6-10 [facility] Hyaline Casts, UA 1-3 [facility] Interpretation and review of laboratory results Abnormal [facility] RBC (U) [#/Vol] /uL High [facility] WBC, UA 20-50 Abnormal [facility] Urinalysison 08-24-2022 Bilirubin Urine Negative Negative [facility] Blood, Urine LARGE Abnormal Negative [facility] Clarity, UA Clear Clear [facility] Color, UA RED Abnormal Straw/Clay ow [facility] Glucose, Ur Negative Negative mg/dL [facility] Interpretation and review of laboratory results Abnormal [facility] Ketones Ql (U) Negative Negative mg/dL [facility] Leukocyte esterase Test strip Ql (U) LARGE Abnormal Negative [facility] Nitrite, Urine Negative Negative [facility] pH, UA 5.5 5.0 - 9.0 [facility] Protein, UA Negative Negative mg/dL [facility] Specific [place], UA 1.008 1.005 - 1.030 [facility] Urobilinogen, Urine 0.2 NINF [facility] Bacterial blood cultureOrder ed By: Tristan Pyle on 08-23-2022 Bacteria identified Cx Nom (Bld) NO GROWTH [address] [facility] Basic Metabolic Panelon 07-31 Anion gap [Moles/Vol] 15.3 mmol/L High 6.0-15.0 [facility] Comment on above: Performed By: #### C BC, HEPATIC, LIPASE, BMP ####[place] [id number] [place] [id number] [place] Calcium [Mass/Vol] 9.2 mg/dL Normal 8.2-10.2 [facility] Comment on above: Performed By: #### C BC, HEPATIC, LIPASE, BMP ####[place] [address] [place] [address] [place] Chloride [Moles/Vol] 106 mmol/L Normal 95-114 [facility] Comment on above: Performed By: #### C BC, HEPATIC, LIPASE, BMP ####[address] [address] [place] CO2 [Moles/Vol] 23.5 mmol/L Normal 22.0-30.0 [facility] Comment on above: Performed By: #### C BC, HEPATIC, LIPASE, BMP ####[address] [address] [place] Creatinine [Mass/Vol] 0.67 mg/dL Normal 0.44-1.03 [facility] Comment on above: Performed By: #### C BC, HEPATIC, LIPASE, BMP ####[address] [place] [address] [place] Creatinine Clr Calc Pharmacy 138.57 [facility] Comment on above: Performed By: #### C BC, HEPATIC, LIPASE, BMP ####[address] [place] [address] [place] Estimated GFR ( Digna > 60 [facility] Comment on above: Result Comment: GFR estimated reference range: According to KDOQI guidelines, <60 ml/min/1.73m2 is sufficient to diagnose a patient with chronic kidney disease. Performed By: #### C BC, HEPATIC, LIPASE, BMP ####[address] [place] [address] [place] Estimated GFR (Non- Am > 60 [facility] Comment on above: Performed By: #### C BC, HEPATIC, LIPASE, BMP ####[address] [place] [address] [place] Glucose [Mass/Vol] 179 mg/dL High 70-100 [facility] Comment on above: Result Comment: [facility] Glucose Reference Range is dependent on time and content of last meal. Glucose of more than 200 mg/dL in a nonstressed, ambulatory subject supports the diagnosis of Diabetes Mellitus. ADA recommended reference range Performed By: #### C BC, HEPATIC, LIPASE, BMP ####[address] [address] [place] Potassium [Moles/Vol] 3.8 mmol/L Normal 3.5-5.1 [facility] Comment on above: Performed By: #### C BC, HEPATIC, LIPASE, BMP ####[place] [id number] [place] Sodium [Moles/Vol] 141 mmol/L Normal 136-146 [facility] Comment on above: Performed By: #### C BC, HEPATIC, LIPASE, BMP ####[place] [id number] [place] Urea nitrogen [Mass/Vol] 9 mg/dL Normal 9-23 [facility] Comment on above: Performed By: #### C BC, HEPATIC, LIPASE, BMP ####[address] [address] [place] [address] [place] Blood Cultureon 08-23-2022 Bacteria identified Cx Nom (Bld) NO GROWTH 5 DAYS PERFORMED BY: [address] [place] [id number] PATHOLOGIST [employer] DRIVER NATALIA MIKE M.D. [facility] Comment on above: Performed By: #### C UBLD, LACTIC ####[place] [id number] [place] Bacteria identified Cx Nom (Bld) NO GROWTH 5 DAYS PERFORMED BY: [address] [place] [id number] PATHOLOGIST [employer]WAY TRAIN DRIVER NATALIA MIKE M.D. Normal [facility] Comment on above: Performed By: #### C UBLD, LACTIC ####[address] abdomen pelvis wo conon 0 08-23-2022 CT abdomen pelvis wo con Normal [facility] Complete Blood Count Auto Di ffon 08-23-2022 Basophils (Bld) [#/Vol] 0.1 10*3/uL Normal 0.0-0.2 [facility] Comment on above: Result Comment: PERF ORMED BY:[place] [address] [address] [place], [place] [id number] MEDICAL DIRECTORNATALIA MIKE M.D. Performed By: #### C BC, HEPATIC, LIPASE, BMP ####[address] Basophils/100 WBC (Bld) 0.6 % Normal . [facility] Comment on above: Performed By: #### C BC, HEPATIC, LIPASE, BMP ####[address] Eosinophils (Bld) [#/Vol] 0.5 10*3/uL High 0.0-0.45 [facility] Comment on above: Performed By: #### C BC, HEPATIC, LIPASE, BMP ####[address] Eosinophils/100 WBC (Bld) 5.6 % Normal . [facility] Comment on above: Performed By: #### C BC, HEPATIC, LIPASE, BMP ####[address] Erythrocyte distribution width (RBC) [Ratio] 12.8 % Normal 11.9-15.3 [facility] Comment on above: Performed By: #### C BC, HEPATIC, LIPASE, BMP ####[address] Hematocrit (Bld) [Volume fraction] 40.7 % Normal 34.0-46.4 [facility] Comment on above: Performed By: #### C BC, HEPATIC, LIPASE, BMP ####[address] Hemoglobin (Bld) [Mass/Vol] 14.0 g/dL Normal 11.8-15.4 [facility] Comment on above: Performed By: #### C BC, HEPATIC, LIPASE, BMP ####[address] Lymphocytes (Bld) [#/Vol] 2.1 10*3/uL Normal 1.00-4.8 [facility] Comment on above: Performed By: #### C BC, HEPATIC, LIPASE, BMP ####[address] Lymphocytes/100 WBC (Bld) 22.4 % Normal . [facility] Comment on above: Performed By: #### C BC, HEPATIC, LIPASE, BMP ####[address] MCH (RBC) [Entitic mass] 30.1 pg Normal 24.7-34.3 [facility] Comment on above: Performed By: #### C BC, HEPATIC, LIPASE, BMP ####[address] MCV (RBC) [Entitic vol] 87.4 fL Normal 80-100 [facility] Comment on above: Performed By: #### C BC, HEPATIC, LIPASE, BMP ####[address] Mean Corpuscular HGB Conc 34.4 g/dL Normal 32.0-35.0 [facility] Comment on above: Performed By: #### C BC, HEPATIC, LIPASE, BMP ####[address] Monocytes (Bld) [#/Vol] 0.6 10*3/uL Normal 0.0-0.8 [facility] Comment on above: Performed By: #### C BC, HEPATIC, LIPASE, BMP ####[address] Monocytes/100 WBC (Bld) 18.80 % Normal 0.00-20.00 [facility] Comment on above: Performed By: #### C BC, HEPATIC, LIPASE, BMP ####[address] Monocytes/100 WBC (Bld) 6.2 % Normal . [facility] Comment on above: Performed By: #### C BC, HEPATIC, LIPASE, BMP ####[address] Neutrophils (Bld) [#/Vol] 6.2 10*3/uL Normal 1.8-7.7 [facility] Comment on above: Performed By: #### C BC, HEPATIC, LIPASE, BMP ####[address] Neutrophils/100 WBC (Bld) 65.2 % Normal . [facility] Comment on above: Performed By: #### C BC, HEPATIC, LIPASE, BMP ####[address] NRBC% 0.2 /100{WBC} Normal 0-0.5 [facility] Comment on above: Performed By: #### C BC, HEPATIC, LIPASE, BMP ####[address] Platelet mean volume (Bld) [Entitic vol] 7.7 fL Normal 6.3-10.7 [facility] Comment on above: Performed By: #### C BC, HEPATIC, LIPASE, BMP ####[address] Platelets (Bld) [#/Vol] 236 10*3/uL Normal 150-450 [facility] Comment on above: Performed By: #### C BC, HEPATIC, LIPASE, BMP ####[address] [place] [address] [place] RBC (Bld) [#/Vol] 4.66 10*6/uL Normal 3.60-5.00 [facility] Comment on above: Performed By: #### C BC, HEPATIC, LIPASE, BMP ####[address] [address] [place] WBC (Bld) [#/Vol] 9.6 10*3/uL Normal 3.8-11.6 [facility] Comment on above: Performed By: #### C BC, HEPATIC, LIPASE, BMP ####[address] [address] [place] ECG 12 lead ECGon 08-23-2022 ECG [address] [facility] Hepatic Panelon 08-23-2022 Albumin [Mass/Vol] 4.0 g/dL Normal 3.2-5.5 [facility] Comment on above: Performed By: #### C BC, HEPATIC, LIPASE, BMP ####[place] [id number] [place] Albumin/Globulin [Mass ratio] 1.1 {ratio} Normal [facility] Comment on above: Performed By: #### C BC, HEPATIC, LIPASE, BMP ####[address] [address] [place] ALP [Catalytic activity/Vol] 68 U/L Normal 32-92 [facility] Comment on above: Performed By: #### C BC, HEPATIC, LIPASE, BMP ####[address] [address] [place] ALT [Catalytic activity/Vol] 17 U/L Normal 10-60 [facility] Comment on above: Performed By: #### C BC, HEPATIC, LIPASE, BMP ####[address] [address] [place] AST [Catalytic activity/Vol] 18 U/L Normal 10-42 [facility] Comment on above: Performed By: #### C BC, HEPATIC, LIPASE, BMP ####[address] [address] [place] Bilirubin [Mass/Vol] 0.4 mg/dL Normal 0.3-1.2 [facility] Comment on above: Performed By: #### C BC, HEPATIC, LIPASE, BMP ####[place] [id number] Bilirubin,Indirect 0.3 mg/dL Normal [facility] Comment on above: Performed By: #### C BC, HEPATIC, LIPASE, BMP ####[place] [id number] Bilirubin.indirect [Mass/Vol] 0.1 mg/dL Normal 0.0-0.4 [facility] Comment on above: Performed By: #### C BC, HEPATIC, LIPASE, BMP ####[address] Globulin (S) [Mass/Vol] 3.5 g/dL Normal [facility] Comment on above: Performed By: #### C BC, HEPATIC, LIPASE, BMP ####[address] Protein [Mass/Vol] 7.5 g/dL Normal 6.1-7.9 [facility] Comment on above: Performed By: #### C BC, HEPATIC, LIPASE, BMP ####[address] Lactic Acidon 08-23-2022 Lactate [Moles/Vol] 1.0 mmol/L Normal 0.5-2.2 [facility] Comment on above: Result Comment: PERF ORMED BY:[address] [place], [place] [id number] MEDICAL RONAN MIKE M.D. Performed By: #### C UBLD, LACTIC ####[place] [id number] [place] Lipaseon 08-23-2022 Lipase [Catalytic activity/Vol] 39.0 U/L Normal 22-51 [facility] Comment on above: Result Comment: PERF ORMED BY:[place] [address] [address] [place], [place] [phone] MEDICAL DIRECTORNATALIA MIKE M.D. Performed By: #### C BC, HEPATIC, LIPASE, BMP ####[facility] [id number] [place] [address] [place] Alkaline phosphatase [Enzyma tic activity/volume] in Serum or PlasmaOrdered By: Tristan Pyle on 08-22-2022 ALP [Catalytic activity/Vol] 68 U/L 32-92 [facility] Aspartate aminotransferase [ Enzymatic activity/volume] in Serum or PlasmaOrdered By: Tristan Pyle on 08-22-2022 AST [Catalytic activity/Vol] 18 U/L 10-42 [facility] Automated erythrocytes count in urine sediment (number/area)Ordered By: Tristan Pyle on 08-22-2022 RBC Auto (Urine sed) [#/Area] 1-2 [HPF] 0-4 [facility] Automated leukocytes count i n urine sediment (number/area)Ordered By: Tristan Pyle on 08-22-2022 WBC Auto (Urine sed) [#/Area] 10-19 [HPF] 0-4 [facility] Bacterial blood cultureOrder ed By: Tristan Pyle on 08-22-2022 Bacteria identified Cx Nom (Bld) NO GROWTH [address] [facility] Basophils Auto (Bld) [#/Vol] Ordered By: Tristan Pyle on 08-22-2022 Basophils (Bld) [#/Vol] 0.1 10*3/uL 0.0-0.2 [facility] Basophils/100 WBC Auto (Bld) Ordered By: Tristan Pyle on 08-22-2022 Basophils/100 WBC (Bld) 0.6 % . [facility] Bilirubin Test strip Ql (U)O rdered By: Tristan Pyle on 08-22-2022 Bilirubin Ql (U) Negative Negative [facility] Bilirubin.direct [Mass/volum e] in Serum or PlasmaOrdered By: Tristan Pyle on 08-22-2022 Bilirubin.direct [Mass/Vol] 0.1 mg/dL 0.0-0.4 [facility] Bilirubin.total [Mass/volume ] in Serum or PlasmaOrdered By: Tristan Pyle on 08-22-2022 Bilirubin [Mass/Vol] 0.4 mg/dL 0.3-1.2 [facility] Body fluid albumin measureme nt (mass/volume)Ordered By: Tristan Pyle on 08-22-2022 Albumin (Body fld) [Mass/Vol] 4.0 g/dL 3.2-5.5 [facility] Calcium [Mass/volume] in Ser um or PlasmaOrdered By: Tristan Pyle on 08-22-2022 Calcium [Mass/Vol] 9.2 mg/dL 8.2-10.2 [facility] Carbon dioxide, total [Moles /volume] in Serum or PlasmaOrdered By: Tristan Pyle on 08-22-2022 CO2 [Moles/Vol] 23.5 mmol/L 22.0-30.0 [facility] Chloride [Moles/volume] in S jaron or PlasmaOrdered By: Tristan Pyle on 08-22-2022 Chloride [Moles/Vol] 106 mmol/L 95-114 [facility] Color Auto (U)Ordered By: Fabio Pyle on 08-22-2022 Color (U) [place] Yellow [facility] Creatinine and Glomerular fi ltration rate.predicted panel (S/P/Bld)Ordered By: Tristan Pyle on 08-22-2022 Creatinine [Mass/Vol] 0.67 mg/dL 0.44-1.03 [facility] Dipstick and Microscopicon 0 08-22-2022 Appearance (U) Clear Normal Clear [facility] Comment on above: Order Comment: Name Collection Type:: Clean-Voided Midstream Performed By: #### A DDONUAPLUS, UHCG, CUU ####[facility] [id number] [place] [address] [place] Bacteria,Urine 1+ High None Seen [facility] Comment on above: Order Comment: Name Collection Type:: Clean-Voided Midstream Performed By: #### A DDONUAPLUS, UHCG, CUU ####[facility] [id number] [place] [address] [place] Bilirubin,Urine Negative Normal Negative [facility] Comment on above: Order Comment: Name Collection Type:: Clean-Voided Midstream Performed By: #### A DDONUAPLUS, UHCG, CUU ####[address] [address] [place] Color (U) [place] Critically abnormal Yellow [facility] Comment on above: Order Comment: Name Collection Type:: Clean-Voided Midstream Performed By: #### A DDONUAPLUS, UHCG, CUU ####[address] [address] [place] Glucose Ql (U) Normal Normal Normal [facility] Comment on above: Order Comment: Name Collection Type:: Clean-Voided Midstream Performed By: #### A DDONUAPLUS, UHCG, CUU ####[address] [address] [place] Hyaline Casts,Urine 0-8 Normal 0-8 [facility] Comment on above: Order Comment: Name Collection Type:: Clean-Voided Midstream Performed By: #### A DDONUAPLUS, UHCG, CUU ####[address] [address] [place] Ketones Ql (U) Negative Normal Negative [facility] Comment on above: Order Comment: Name Collection Type:: Clean-Voided Midstream Performed By: #### A DDONUAPLUS, UHCG, CUU ####[address] [address] [place] Leukocyte esterase Test strip Ql (U) 4+ High Negative [facility] Comment on above: Order Comment: Name Collection Type:: Clean-Voided Midstream Performed By: #### A DDONUAPLUS, UHCG, CUU ####[address] [address] [place] Nitrite,Urine Negative Normal Negative [facility] Comment on above: Order Comment: Name Collection Type:: Clean-Voided Midstream Performed By: #### A DDONUAPLUS, UHCG, CUU ####[address] [address] [place] Occult Blood,Urine 3+ High Negative [facility] Comment on above: Order Comment: Name Collection Type:: Clean-Voided Midstream Performed By: #### A DDONUAPLUS, UHCG, CUU ####[address] pH (U) 5.5 [pH] Normal 5.0-9.0 [facility] Comment on above: Order Comment: Name Collection Type:: Clean-Voided Midstream Performed By: #### A DDONUAPLUS, UHCG, CUU ####[address] Protein,Urine Trace High Negative [facility] Comment on above: Order Comment: Name Collection Type:: Clean-Voided Midstream Performed By: #### A DDONUAPLUS, UHCG, CUU ####[address] RBC,Urine 1-2 Normal 0-4 [facility] Comment on above: Order Comment: Name Collection Type:: Clean-Voided Midstream Performed By: #### A DDONUAPLUS, UHCG, CUU ####[address] Specificy [place],Urine 1.003 Normal 1.001-1.[address] [facility] Comment on above: Order Comment: Name Collection Type:: Clean-Voided Midstream Performed By: #### A DDONUAPLUS, UHCG, CUU ####[place] [id number] [place] Squamous Epithelial Cell,Urine 3-4 High 0-2 [facility] Comment on above: Order Comment: Name Collection Type:: Clean-Voided Midstream Performed By: #### A DDONUAPLUS, UHCG, CUU ####[place] [id number] [place] Urobilinogen,Urine Normal Normal Normal [facility] Comment on above: Order Comment: Name Collection Type:: Clean-Voided Midstream Performed By: #### A DDONUAPLUS, UHCG, CUU ####[facility] [id number] WBC,Urine 10-19 High 0-4 [facility] Comment on above: Order Comment: Name Collection Type:: Clean-Voided Midstream Performed By: #### A DDONUAPLUS, UHCG, CUU ####[facility] [id number] Yeast,Urine None Seen Normal None Seen [facility] Comment on above: Order Comment: Name Collection Type:: Clean-Voided Midstream Performed By: #### A DDONUAPLUS, [facility], CUU ####[facility] [id number] Eosinophils Auto (Bld) [#/Vo l]Ordered By: Tristan Pyle on 08-22-2022 Eosinophils (Bld) [#/Vol] 0.5 10*3/uL 0.0-0.45 [facility] Eosinophils/100 WBC Auto (Bl d)Ordered By: Tristan Pyle on 08-22-2022 Eosinophils/100 WBC (Bld) 5.6 % . [facility] Erythrocyte distribution wid th Auto (RBC) [Ratio]Ordered By: Tristan Pyle on 08-22-2022 Erythrocyte distribution width (RBC) [Ratio] 12.8 % 11.9-15.3 [facility] Estimated glomerular filtrat ion rate (GFR) non- AmericanOrdered By: Tristan Pyle on 08-22-2022 GFR/1.73 sq M.predicted among non-blacks MDRD (S/P/Bld) [Vol rate/Area] > 60 mL/Min [facility] Globulin Calc (S) [Mass/Vol] Ordered By: Tristan Pyle on 08-22-2022 Globulin (S) [Mass/Vol] 3.5 g/dL [facility] Glucose [Mass/volume] in Ser um or PlasmaOrdered By: Tristan Pyle on 08-22-2022 Glucose [Mass/Vol] 179 mg/dL 70-100 [facility] Comment on above: ADA recommended refe rence rangeRandom Glucose Reference Range is dependent on time and content of last meal. Glucose of more than 200 mg/dL in a nonstressed, ambulatory subject supports the diagnosis of Diabetes Mellitus. HCG ( test) IA.rapi d Ql (U)Ordered By: Tristan Pyle on 08-22-2022 HCG ( test) Ql (U) Negative [facility] HCG,Urineon 08-22-2022 Beta HCG ( test) Ql (U) Negative Normal [facility] Comment on above: Order Comment: Name Collection Type:: Clean-Voided Midstream Result Comment: PERF ORMED BY:[address] [place], [place] [phone] MEDICAL DIRECTORNATALIA MIKE M.D. Performed By: #### A JOANA, [facility], [facility] ####[facility] [place] [address] [place] Hematocrit Auto (Bld) [Volum e fraction]Ordered By: Tristan Pyle on 08-22-2022 Hematocrit (Bld) [Volume fraction] 40.7 % 34.0-46.4 [facility] Hemoglobin [Mass/volume] in BloodOrdered By: Tristan Pyle on 08-22-2022 Hemoglobin (Bld) [Mass/Vol] 14.0 g/dL 11.8-15.4 [facility] Ketones Auto test strip (U) [Mass/Vol]Ordered By: Tristan Pyle on 08-22-2022 Ketones (U) [Mass/Vol] Negative Negative [facility] - Chemistry and C hemistry - challengeOrdered By: Tristan Pyle on 08-22-2022 Lipase [Catalytic activity/Vol] 39.0 U/L 22-51 [facility] Laboratory - UrinalysisOrder ed By: Tristan Pyle on 08-22-2022 Hyaline casts LM Ql (Urine sed) 0-8 [LPF] 0-8 [facility] Leukocytes [#/volume] correc suzanne for nucleated erythrocytes in Blood by Automated counOrdered By: Tristan Pyle on 08-22-2022 WBC corrected for nucl RBC Auto (Bld) [#/Vol] 9.6 10*3/uL 3.8-11.6 [facility] Lymphocytes Auto (Bld) [#/Vo l]Ordered By: Tristan Pyle on 08-22-2022 Lymphocytes (Bld) [#/Vol] 2.1 10*3/uL 1.00-4.8 [facility] Lymphocytes/100 WBC Auto (Bl d)Ordered By: Tristan Pyle on 08-22-2022 Lymphocytes/100 WBC (Bld) 22.4 % . [facility] MCH Auto (RBC) [Entitic mass ]Ordered By: Tristan Pyle on 08-22-2022 MCH (RBC) [Entitic mass] 30.1 pg 24.7-34.3 [facility] MCHC Auto (RBC) [Mass/Vol]Or dered By: Tristan Pyle on 08-22-2022 MCHC (RBC) [Mass/Vol] 34.4 g/dL 32.0-35.0 [facility] MCV Auto (RBC) [Entitic vol] Ordered By: Tristan yPle on 08-22-2022 MCV (RBC) [Entitic vol] 87.4 fL 80-100 [facility] Monocyte distribution width [Entitic volume] in Blood by AutomatedOrdered By: Tristan Pyle on 08-22-2022 Monocyte distribution width Auto (Bld) [Entitic vol] 18.80 % 0.00-20.00 [facility] Monocytes Auto (Bld) [#/Vol] Ordered By: Tristan Pyle on 08-22-2022 Monocytes (Bld) [#/Vol] 0.6 10*3/uL 0.0-0.8 [facility] Monocytes/100 WBC Auto (Bld) Ordered By: Tristan Pyle on 08-22-2022 Monocytes/100 WBC (Bld) 6.2 % . [facility] Neutrophils Auto (Bld) [#/Vo l]Ordered By: Tristan Pyle on 08-22-2022 Neutrophils (Bld) [#/Vol] 6.2 10*3/uL 1.8-7.7 [facility] Neutrophils/100 WBC Auto (Bl d)Ordered By: Tristan Pyle on 08-22-2022 Neutrophils/100 WBC (Bld) 65.2 % . [facility] Nitrite Test strip Ql (U)Ord ered By: Tristan Pyle on 08-22-2022 Nitrite Ql (U) Negative Negative [facility] No Panel InformationOrdered By: Tristan yPle on 08-22-2022 Estimated GFR () > 60 mL/Min [facility] Comment on above: GFR estimated refere nce range: According to KDOQI guidelines, <60 ml/min/1.73m2 is sufficient to diagnose a patient with chronic kidney disease. Pharmacy Creatinine Clearance (Chem 138.57 [facility] > 60 mL/Min [facility] 39.0 U/L 22-51 [facility] 138.57 [facility] 0-8 [LPF] 0-8 [facility] Nucleated erythrocytes [Pres ence] in Blood by Automated countOrdered By: Tristan Pyle on 08-22-2022 Nucleated RBC Auto Ql (Bld) 0.2 /100{WBC} 0-0.5 [facility] Platelet mean volume Auto (B ld) [Entitic vol]Ordered By: Tristan Pyle on 08-22-2022 Platelet mean volume (Bld) [Entitic vol] 7.7 fL 6.3-10.7 [facility] Platelets Auto (Bld) [#/Vol] Ordered By: Tristan Pyle on 08-22-2022 Platelets (Bld) [#/Vol] 236 10*3/uL 150-450 [facility] Potassium [Moles/volume] in Serum or PlasmaOrdered By: Tristan Pyle on 08-22-2022 Potassium [Moles/Vol] 3.8 mmol/L 3.5-5.1 [facility] Protein Auto test strip (U) [Mass/Vol]Ordered By: Tristan Pyle on 08-22-2022 Protein (U) [Mass/Vol] Trace mg/dL Negative [facility] Protein [Mass/volume] in Ser um or PlasmaOrdered By: Tristan Pyle on 08-22-2022 Protein [Mass/Vol] 7.5 g/dL 6.1-7.9 [facility] RBC Auto (Bld) [#/Vol]Ordere d By: Tristan Pyle on 08-22-2022 RBC (Bld) [#/Vol] 4.66 10*6/uL 3.60-5.00 [facility] Serum or plasma alanine slaughter otransferase measurement without P-5'-P (enzymatic activiOrdered By: Tristan Pyle on 08-22-2022 ALT No additional P-5'-P [Catalytic activity/Vol] 17 U/L 10-60 [facility] Serum or plasma albumin/glob ulin mass ratioOrdered By: Tristan Pyle on 08-22-2022 Albumin/Globulin [Mass ratio] 1.1 {ratio} [facility] Serum or plasma anion gap de terminationOrdered By: Tristan Pyle on 08-22-2022 Anion gap [Moles/Vol] 15.3 mmol/L 6.0-15.0 [facility] Serum or plasma creatinine m easurement with calculation of estimated glomerular filtrOrdered By: Tristan Pyle on 08-22-2022 Creatinine and Glomerular filtration rate.predicted panel (S/P/Bld) 0.67 mg/dL 0.44-1.03 [facility] Serum or plasma non-glucuron idated bilirubin measurement (mass/volume)Ordered By: Tristan Pyle on 08-22-2022 Bilirubin.indirect [Mass/Vol] 0.3 mg/dL [facility] Sodium [Moles/volume] in Ser um or PlasmaOrdered By: Tristan Pyle on 08-22-2022 Sodium [Moles/Vol] 141 mmol/L 136-146 [facility] Specific gravity Auto test s trip (U) [Rel density]Ordered By: Tristan Pyle on 08-22-2022 Specific gravity (U) [Rel density] 1.003 1.001-1.[address] [facility] Squamous epithelial cells de tection in urine sediment by light microscopyOrdered By: Tristan Pyle on 08-22-2022 Epithelial cells.squamous LM Ql (Urine sed) 3-4 [HPF] 0-2 [facility] Urea nitrogen [Mass/volume] in Serum or PlasmaOrdered By: Tristan Pyle on 08-22-2022 Urea nitrogen [Mass/Vol] 9 mg/dL 9-23 [facility] Urine Cultureon 08-22-2022 Bacteria identified Cx Nom (U) Normal [facility] Comment on above: Performed By: #### A JOANA, MOHINDER, ANGEL ####[facility] [address] [id number] [place] Urine bacteria detection by automated methodOrdered By: Tristan Pyle on 08-22-2022 Bacteria Auto Ql (U) 1+ None Seen [facility] Urine clarity by refractomet ry automatedOrdered By: Tristan Pyle on 08-22-2022 Clarity Refractometry automated (U) Clear Clear [facility] Urine culture routineOrdered By: Tristan Pyle on 08-22-2022 Bacteria identified Cx Nom (U) [address] [facility] Bacteria identified Cx Nom (U) [address] [facility] Urine glucose measurement by automated test strip (mass/volume)Ordered By: Tristan Pyle on 08-22-2022 Glucose Auto test strip (U) [Mass/Vol] Normal mg/dL Normal [facility] Urine hemoglobin detection b y automated test stripOrdered By: Tristan Pyle on 08-22-2022 Hemoglobin Auto test strip Ql (U) 3+ Negative [facility] Urine lactic acid measuremen tOrdered By: Tristan Pyle on 08-22-2022 Lactate (U) [Moles/Vol] 1.0 mmol/L 0.5-2.2 [facility] Urine leukocyte esterase det ection by automated test stripOrdered By: Tristan Pyle on 08-22-2022 Leukocyte esterase Auto test strip Ql (U) 4+ Negative [facility] Urobilinogen Auto test strip (U) [Mass/Vol]Ordered By: Tristan Pyle on 08-22-2022 Urobilinogen (U) [Mass/Vol] Normal mg/dL Normal [facility] WBC Auto (Bld) [#/Vol]Ordere d By: Tristan Pyle on 08-22-2022 WBC (Bld) [#/Vol] 9.6 10*3/uL 3.8-11.6 [facility] Yeast detection in urine sed iment by light microscopyOrdered By: Tristan Pyle on 08-22-2022 Yeast LM Ql (Urine sed) None seen [HPF] None Seen [facility] pH Auto test strip (U)Ordere d By: Tristan Pyle on 08-22-2022 pH (U) 5.5 [pH] 5.0-9.0 [facility] C Urineon 08-21-2022 Bacteria identified Cx Nom (U) Normal [facility] Comment on above: Performed By: #### 2 978987, [id number] ####[facility] [address] [place] [address] CT Abdomen/Pelvis w/o Contra ston 08-19-2022 CT Abdomen/Pelvis w/o Contrast Normal [facility] Coding Summary.on 08-19-2022 Coding Summary. Normal [facility] Discharge Instructionson Discharge Instructions [id number]:1 27 Normal [facility] ED Clinical Summaryon 2022 ED Clinical Summary Normal [facility] ED Note-Physicianon 08-19-19 23 ED Note-Physician Normal [facility] Comment on above: Result Comment: Elec tronically Signed By: Indy FERNANDEZ, Grey SSorin\.br\Date and Time Signed: 08/18/22 22:44 EST ED Patient Education Noteon 08-19-2022 ED Patient Education Note Normal [facility] ED Patient Summaryon 023 ED Patient Summary Normal [facility] RAD - Preliminary Cat Scan R eporton 08-19-2022 RAD - Preliminary Cat Scan Report [id number]#[id number]:1 27 Normal [facility] Auto Diffon 08-18-2022 Basophils/100 WBC (Bld) 0.8 % Normal 0.0-2.0 [facility] Comment on above: Order Comment: Order Added by Discern Expert. Performed By: #### 2 236727, 6826916, 06338913, 6002488, 0358479, 5404374 ####[facility] [address] [place] [address] Basophils/Leukocytes Auto (Bld) [Pure # fraction] 0.1 E9/L Normal 0.0-0.2 [facility] Comment on above: Order Comment: Order Added by Discern Expert. Performed By: #### 2 538377, 2408992, 74331295, 7667471, 0774389, 1703419 ####[facility] [address] [place] [address] Eosinophils/100 WBC (Bld) 5.0 % Normal 0.0-8.0 [facility] Comment on above: Order Comment: Order Added by Discern Expert. Performed By: #### 2 528818, 6193835, 97483368, 0088719, 3885139, 9639369 ####[address] [place] [address] Eosinophils/Leukocytes Auto (Bld) [Pure # fraction] 0.4 E9/L Normal 0.0-0.5 [facility] Comment on above: Order Comment: Order Added by Discern Expert. Performed By: #### 2 837859, 6729534, 76111734, 5814324, 5318641, 9912910 ####[address] [place] [address] Lymphocytes/100 WBC (Bld) 24.3 % Normal 14.0-50.0 [facility] Comment on above: Order Comment: Order Added by Discern Expert. Performed By: #### 2 998877, 4353440, 75234110, 0010971, 1082713, 5934137 ####[address] [place] [address] Lymphocytes/Leukocytes Auto (Bld) [Pure # fraction] 1.9 E9/L Normal 1.0-4.0 [facility] Comment on above: Order Comment: Order Added by Discern Expert. Performed By: #### 2 347366, 2739781, 20413543, 6066452, 7231947, 3157863 ####[address] [place] [address] Monocytes/100 WBC (Bld) 7.0 % Normal 4.0-14.0 [facility] Comment on above: Order Comment: Order Added by Discern Expert. Performed By: #### 2 197244, 2073997, 26066196, 7152838, 0854987, 6394159 ####[facility] [address] [place] [address] Monocytes/Leukocytes Auto (Bld) [Pure # fraction] 0.5 E9/L Normal 0.2-1.0 [facility] Comment on above: Order Comment: Order Added by Discern Expert. Performed By: #### 2 783474, 6291161, 29861609, 4713355, 7491232, 9388747 ####[address] [place] [address] Neutrophils/100 WBC (Bld) 62.9 % Normal 36.0-75.0 [facility] Comment on above: Order Comment: Order Added by Discern Expert. Performed By: #### 2 984973, 4934594, 75481368, 7248899, 7025904, 4409500 ####[facility] [address] [place] [address] Neutrophils/Leukocytes Auto (Bld) [Pure # fraction] 4.8 E9/L Normal 2.0-7.5 [facility] Comment on above: Order Comment: Order Added by Discern Expert. Performed By: #### 2 602242, 2909600, 87863387, 4400517, 7740971, 9723573 ####[facility] [address] [place] [address] BMPon 08-18-2022 Creatinine [Mass/Vol] 0.8 mg/dL Normal 0.5-1.3 [facility] Comment on above: Performed By: #### 2 076218, 8393057, 10139930, 0253413, 6890726, 8569698 ####[address] [place] [address] Urea nitrogen [Mass/Vol] 19 mg/dL Normal 5-21 [facility] Comment on above: Performed By: #### 2 320475, 3314563, 94099213, 5983379, 8500317, 1209899 ####[facility] [address] [place] [address] Urea nitrogen/Creatinine [Mass ratio] 24 No Units High 10-20 [facility] Comment on above: Performed By: #### 2 805062, 1625620, 43282279, 4987729, 7157279, 7587638 ####[facility] [address] [place] [address] Anion gap [Moles/Vol] 11 mmol/L Normal 6-16 [facility] Comment on above: Performed By: #### 2 276777, 5951950, 46703836, 7128044, 8160811, 0015692 ####[facility] [address] [place] [address] Calcium [Mass/Vol] 9.1 mg/dL Normal 8.9-11.1 [facility] Comment on above: Performed By: #### 2 364334, 6231382, 34386599, 8341917, 7968497, 7239151 ####[facility] [address] [place] [address] Chloride [Moles/Vol] 102 mmol/L Normal 101-111 [facility] Comment on above: Performed By: #### 2 544086, 7470915, 00292347, 9560794, 3040843, 3052367 ####[facility] [address] [place] [address] CO2 [Moles/Vol] 26 mmol/L Normal 21-31 [facility] Comment on above: Performed By: #### 2 040121, 4085451, 57314306, 4157569, 6660768, 6227905 ####[facility] [address] [place] [address] Glucose [Mass/Vol] 251 mg/dL High 55-199 [facility] Comment on above: Result Comment: If t his glucose result represents a fasting glucose, interpretation should refer to the following reference range: 55-99 mg/dL Performed By: #### 2 546028, 7976020, 13635088, 6844420, 7147586, 0434452 ####[facility] [address] [place] [address] Potassium [Moles/Vol] 4.0 mmol/L Normal 3.5-5.3 [facility] Comment on above: Performed By: #### 2 382790, 2743898, 69385626, 4636751, 5363312, 1007089 ####[facility] [address] [place] [address] Sodium [Moles/Vol] 135 mmol/L Normal 135-145 [facility] Comment on above: Performed By: #### 2 625227, 2761090, 75459322, 2296184, 8711497, 1077720 ####[facility] [address] [place] [address] CBC w/ Auto Diffon 3 Erythrocyte distribution width (RBC) [Ratio] 12.8 % Normal 10.9-14.2 [facility] Comment on above: Performed By: #### 2 194070, 9364335, 13890381, 7463800, 8525768, 5993705 ####[facility] [address] [place] [address] Hematocrit (Bld) [Volume fraction] 40.4 % Normal 34.0-46.0 [facility] Comment on above: Performed By: #### 2 772199, 3812968, 82487282, 5327185, 3148932, 9644521 ####[facility] [address] [place] [address] Hemoglobin (Bld) [Mass/Vol] 13.6 g/dL Normal 12.0-16.0 [facility] Comment on above: Performed By: #### 2 202337, 4049312, 84942065, 6969974, 4672281, 8211643 ####[facility] [address] [place] [address] MCH (RBC) [Entitic mass] 29.7 pg Normal 27.0-34.0 [facility] Comment on above: Performed By: #### 2 447967, 4595449, 30009094, 6328037, 2960221, 0658460 ####[address] [place] [address] MCHC (RBC) [Mass/Vol] 33.7 g/dL Normal 31.4-36.0 [facility] Comment on above: Performed By: #### 2 081863, 5711031, 64972701, 0755261, 6728043, 0115493 ####[address] [address] MCV (RBC) [Entitic vol] 88.3 fL Normal 80.0-100.0 [facility] Comment on above: Performed By: #### 2 694620, 8172365, 76666711, 6948321, 5615545, 3241133 ####[address] [place] [address] Platelet mean volume (Bld) [Entitic vol] 7.0 fL Normal 6.4-10.8 [facility] Comment on above: Performed By: #### 2 158920, 1265679, 99941618, 4322783, 5848823, 6375378 ####[address] [address] Platelets (Bld) [#/Vol] 223.0 E9/L Normal 150.0-500. 0 [facility] Comment on above: Performed By: #### 2 842029, 2749441, 40326197, 4247743, 3163821, 5655664 ####[address] [address] RBC (Bld) [#/Vol] 4.6 E12/L Normal 4.3-5.9 [facility] Comment on above: Performed By: #### 2 957193, 3953299, 06403393, 6986777, 3916448, 1489430 ####[address] [place] [address] WBC corrected for nucl RBC Auto (Bld) [#/Vol] 7.7 E9/L Normal 4.0-11.0 [facility] Comment on above: Performed By: #### 2 199806, 7994129, 81915393, 7602723, 8762963, 3525217 ####[facility] [address] [place] [address] CHEMISTRYOrdered By: SYSTEM SYSTEM on 08-18-2022 Albumin [Mass/Vol] 4.2 g/dL Normal 3.3 - 5.0 gm/dL [facility] Albumin/Globulin [Mass ratio] 1.2 {ratio} Normal 1.1 - 2.2 [facility] ALP [Catalytic activity/Vol] 63 [iU]/d Normal 21 - 98 Int._Unit/ L [facility] ALT No additional P-5'-P [Catalytic activity/Vol] 13 [iU]/d Normal 6 - 46 Int._Unit/ L [facility] Anion gap [Moles/Vol] 11 mmol/L Normal 6 - 16 mEq/L [facility] AST [Catalytic activity/Vol] 17 [iU]/d Normal 5 - 43 Int._Unit/ L [facility] Bilirubin [Mass/Vol] 0.6 mg/dL Normal 0.0 - 1 .1 mg/dL [facility] Bilirubin.direct [Mass/Vol] mg/dL Normal 0.1 - 0.4 mg/dL [facility] Bilirubin.indirect [Mass or moles/Vol] Unable to Calculate mg/dL Invalid Interpretation Code 0.1 - 0.9 mg/dL [facility] Calcium [Mass/Vol] 9.1 mg/dL Normal 8.9 - 11. 1 mg/dL [facility] Chloride [Moles/Vol] 102 mmol/L Normal 101 - 1 11 mmol/L [facility] CO2 [Moles/Vol] 26 mmol/L Normal 21 - 31 mmol/L [facility] Creatinine [Mass/Vol] 0.8 mg/dL Normal 0.5 - 1.3 mg/dL [facility] GFR/1.73 sq M.predicted among blacks MDRD (S/P/Bld) [Vol rate/Area] mL/min/1.73 m2 Normal >=59mL/min /1.73 m2 [facility] Chem S GFR/1.73 sq M.predicted among non-blacks MDRD (S/P/Bld) [Vol rate/Area] mL/min/1.73 m2 Normal >=59mL/min /1.73 m2 [facility] Chem S Globulin (S) [Mass/Vol] 3.5 g/dL Normal 1.4 - 4.0 gm/dL [facility] Glucose [Mass/Vol] 251 mg/dL High 55 - 199 mg/dL [facility] Lipase [Catalytic activity/Vol] 44 U/L Normal 13 - 58 unit/L [facility] Potassium [Moles/Vol] 4.0 mmol/L Normal 3.5 - 5.3 mmol/L [facility] Protein [Mass/Vol] 7.7 g/dL Normal 6.0 - 7.8 gm/dL [facility] Sodium [Moles/Vol] 135 mmol/L Normal 135 - 145 mmol/L [facility] Urea nitrogen [Mass/Vol] 19 mg/dL Normal 5 - 21 mg/dL [facility] Urea nitrogen/Creatinine [Mass ratio] 24 mg/mg High 10 - 20 [facility] Consent for Treatmenton 07-31 Consent for Treatment [id number]#[id number]:12 7 Normal [facility] HEMATOLOGYOrdered By: SYSTEM SYSTEM on 08-18-2022 Basophils/100 WBC (Bld) 0.8 % Normal 0.0 - 2.0 % [facility] HemeAutoSS Basophils/Leukocytes Auto (Bld) [Pure # fraction] 0.1 E9/L Normal 0.0 - 0.2 E9/L [facility] HemeAutoSS Eosinophils/100 WBC (Bld) 5.0 % Normal 0.0 - 8.0 % [facility] HemeAutoSS Eosinophils/Leukocytes Auto (Bld) [Pure # fraction] 0.4 E9/L Normal 0.0 - 0.5 E9/L [facility] HemeAutoSS Lymphocytes/100 WBC (Bld) 24.3 % Normal 14.0 - 50.0 % [facility] HemeAutoSS Lymphocytes/Leukocytes Auto (Bld) [Pure # fraction] 1.9 E9/L Normal 1.0 - 4.0 E9/L [facility] HemeAutoSS Monocytes/100 WBC (Bld) 7.0 % Normal 4.0 - 14.0 % [facility] HemeAutoSS Monocytes/Leukocytes Auto (Bld) [Pure # fraction] 0.5 E9/L Normal 0.2 - 1.0 E9/L [facility] HemeAutoSS Neutrophils/100 WBC (Bld) 62.9 % Normal 36.0 - 75.0 % [facility] HemeAutoSS Neutrophils/Leukocytes Auto (Bld) [Pure # fraction] 4.8 E9/L Normal 2.0 - 7.5 E9/L [facility] HemeAutoSS HEMATOLOGYOrdered By: Clau Muñoz on 08-18-2022 Erythrocyte distribution width (RBC) [Ratio] 12.8 % Normal 10.9 - 14.2 % [facility] HemeAutoSS Hematocrit (Bld) [Volume fraction] 40.4 % Normal 34.0 - 46.0 % [facility] HemeAutoSS Hemoglobin (Bld) [Mass/Vol] 13.6 g/dL Normal 12.0 - 16.0 gm/dL [facility] HemeAutoSS MCH (RBC) [Entitic mass] 29.7 pg Normal 27.0 - 34.0 pg [facility] HemeAutoSS MCHC (RBC) [Mass/Vol] 33.7 g/dL Normal 31.4 - 36.0 gm/dL [facility] HemeAutoSS MCV (RBC) [Entitic vol] 88.3 fL Normal 80.0 - 100.0 fL [facility]eAutoSS Platelet mean volume (Bld) [Entitic vol] 7.0 fL Normal 6.4 - 10.8 fL [facility]eAutoSS Platelets (Bld) [#/Vol] 223.0 E9/L Normal 150.0 - 500.0 E9/L [facility] HemeAutoSS RBC (Bld) [#/Vol] 4.6 E12/L Normal 4.3 - 5.9 E12/L [facility] HemeAutoSS WBC corrected for nucl RBC Auto (Bld) [#/Vol] 7.7 E9/L Normal 4.0 - 11.0 E9/L [facility] HemeAutoSS Hep Func Panelon 08-18-2022 Bilirubin.indirect [Mass or moles/Vol] UTC Abnormal 0.1-0.9 [facility] Comment on above: Result Comment: Resu lt verified by Discern Rule. Performed result [facility] (Unable to Calculate) was sent as an Alpha code due the inability to calculate a valid numeric value. Performed By: #### 2 034569, 0669752, 05165337, 0108963, 3343555, 8687990 ####[facility] [address] [place] [address] Albumin [Mass/Vol] 4.2 g/dL Normal 3.3-5.0 [facility] Comment on above: Performed By: #### 2 299615, 0505648, 29123272, 5608362, 7822366, 9831811 ####[address] [place] [address] Albumin/Globulin (S) [Mass conc ratio] 1.2 Normal 1.1-2.2 [facility] Comment on above: Performed By: #### 2 201173, 9658388, 28893323, 9568934, 2605847, 5297544 ####[address] [place] [address] ALP [Catalytic activity/Vol] 63 Int._Unit/L Normal 21-98 [facility] Comment on above: Performed By: #### 2 172566, 3904017, 50312394, 4385681, 6443007, 9944190 ####[address] [place] [address] ALT No additional P-5'-P [Catalytic activity/Vol] 13 Int._Unit/L Normal 6-46 [facility] Comment on above: Performed By: #### 2 140907, 3677619, 98648393, 0438316, 6648461, 5932347 ####[facility] [address] [place] [address] AST [Catalytic activity/Vol] 17 Int._Unit/L Normal 5-43 [facility] Comment on above: Performed By: #### 2 114193, 3384302, 19086319, 9162586, 2694832, 9349484 ####[facility] [address] [place] [address] Bilirubin [Mass/Vol] 0.6 mg/dL Normal 0.0-1.1 [facility] Comment on above: Performed By: #### 2 895854, 1106917, 67596019, 6130033, 6986188, 4756726 ####[facility] [address] [place] [address] Bilirubin.direct [Mass/Vol] mg/dL Normal 0.1-0.4 [facility] Comment on above: Performed By: #### 2 420617, 5336007, 74245538, 4206609, 9945187, 1981632 ####[address] [address] Globulin (S) [Mass/Vol] 3.5 g/dL Normal 1.4-4.0 [facility] Comment on above: Performed By: #### 2 846657, 7016713, 47803192, 9922603, 9764664, 8135229 ####[address] [address] Protein [Mass/Vol] 7.7 g/dL Normal 6.0-7.8 [facility] Comment on above: Performed By: #### 2 320655, 1904522, 58951649, 5930362, 1958322, 4315478 ####[facility] [address] [place] [address] Lipase Levelon 08-18-2022 Lipase [Catalytic activity/Vol] 44 U/L Normal 13-58 [facility] Comment on above: Performed By: #### 2 843636, 1678402, 40395982, 3213129, 3377738, 9100486 ####[facility] [address] [place] [address] UA With Cult Reflexon 2022 Bilirubin Ql (U) Negative Normal Negative [facility] Comment on above: Performed By: #### 2 739370, 39411971 ####[facility] [address] [place] [address] Clarity (U) SL CLOUDY Abnormal Clear [facility] Comment on above: Performed By: #### 2 787895, 37497722 ####[facility] [address] [place] [address] Color (U) RED Abnormal Yellow [facility] Comment on above: Performed By: #### 2 269147, 17418931 ####[address] [address] Epithelial cells.squamous LM.HPF (Urine sed) [#/Area] 5-8 Normal 0-2 [facility] Comment on above: Performed By: #### 2 706810, 75895095 ####[facility] [address] [place] [address] Glucose Test strip (U) [Mass/Vol] 2+ Abnormal Negative [facility] Comment on above: Performed By: #### 2 519662, 03730288 ####[facility] [address] [place] [address] Hemoglobin Ql (U) 3+ Abnormal Negative [facility] Comment on above: Performed By: #### 2 299317, 43585002 ####[facility] [address] [place] [address] Ketones (U) [Mass/Vol] Negative Normal Negative [facility] Comment on above: Performed By: #### 2 844928, 50765843 ####[facility] [address] [place] [address] [place].plasma/[place] .RBC (Bld) [Mass ratio] >75 Abnormal 0-3 [facility] Comment on above: Performed By: #### 2 335976, 73623599 ####[facility] [address] [place] [address] Nitrite Ql (U) Negative Normal Negative [facility] Comment on above: Performed By: #### 2 054508, 94457099 ####Alba Gilchrist [address] [address] pH (U) 6.0 [pH] Invalid Interpretation Code 5.0-9.0 [facility] Comment on above: Performed By: #### 2 479068, 96393972 ####[address] [address] Protein (U) [Mass/Vol] Negative Normal Negative [facility] Comment on above: Performed By: #### 2 351327, 12408969 ####[address] [address] Specific gravity (U) [Rel density] 1.025 Invalid Interpretation Code 1.005-1.03 0 [facility] Comment on above: Performed By: #### 2 023028, 99016501 ####[address] [address] Type of Urine collection method Clean Catch Normal [facility] Comment on above: Performed By: #### 2 539379, 77553535 ####[address] [address] Urobilinogen Qn (U) 0.2 {Diaz'U}/dL Normal 0.0-1.0 [facility] Comment on above: Performed By: #### 2 066996, 01314734 ####[address] [address] WBC Auto Ql (U) 1+ Abnormal Negative [facility] Comment on above: Performed By: #### 2 327711, 26240043 ####[address] [address] WBC LM.HPF (Urine sed) [#/Area] 6-15 Abnormal 0-5 [facility] Comment on above: Performed By: #### 2 206818, 15126344 ####[address] [address] URINALYSISOrdered By: Clau Muñoz on 08-18-2022 Bilirubin Ql (U) Negative (08/18/22 7:18 PM) Normal Negative [facility] UA Auto SS Clarity (U) Slightly Cloudy *ABN* (08/18/22 7:18 PM) Invalid Interpretation Code Clear [facility] UA Auto SS Color (U) Red *ABN* (08/18/22 7:18 PM) Invalid Interpretation Code Yellow [facility] UA Auto SS Epithelial cells.squamous LM.HPF (Urine sed) [#/Area] 5-8 /HPF Normal 0-2/HPF [facility] UA Aut o SS Glucose Test strip (U) [Mass/Vol] 2+ *ABN* (08/18/22 7:18 PM) Invalid Interpretation Code Negative [facility] UA Auto SS Hemoglobin Ql (U) 3+ *ABN* (08/18/22 7:18 PM) Invalid Interpretation Code Negative [facility] UA Auto SS Ketones (U) [Mass/Vol] Negative (08/18/22 7:18 PM) Normal Negative [facility] UA Auto SS [place].plasma/[place] .RBC (Bld) [Mass ratio] >75 /HPF Invalid Interpretation Code 0-3/HPF [facility] UA Auto SS Nitrite Ql (U) Negative (08/18/22 7:18 PM) Normal Negative [facility] UA Auto SS pH (U) 6.0 *NA* (08/18/22 7:18 PM) Invalid Interpretation Code 5.0 - 9.0 [facility] UA Auto SS Protein (U) [Mass/Vol] Negative (08/18/22 7:18 PM) Normal Negative [facility] UA Auto SS Specific gravity (U) [Rel density] 1.025 *NA* (08/18/22 7:18 PM) Invalid Interpretation Code 1.005 - 1.030 [facility] UA Auto SS UA Spec Desc Clean Catch (08/18/22 7:18 PM) Normal [facility] UA Auto SS Urobilinogen Qn (U) 0.8734997 {Diaz'U}/dL Normal 0.0 - 1.0 EU/dL [facility] UA Auto SS WBC Auto Ql (U) 1+ *ABN* (08/18/22 7:18 PM) Invalid Interpretation Code Negative [facility] UA Auto SS WBC LM.HPF (Urine sed) [#/Area] 6-15 /HPF Invalid Interpretation Code 0-5/HPF [facility] UA Auto SS eGFRon 08-18-2022 GFR/1.73 sq M.predicted among blacks MDRD (S/P/Bld) [Vol rate/Area] mL/min/{1.73_m2} Normal >=59 [facility] Comment on above: Order Comment: Order added by Discern Expert. Result Comment: eGFR is race adjusted. AA=. Performed By: #### 2 592621, 3667581, 69417859, 2665465, 1416936, 2341768 ####[facility] [address] [place] [address] GFR/1.73 sq M.predicted among non-blacks MDRD (S/P/Bld) [Vol rate/Area] mL/min/{1.73_m2} Normal >=59 [facility] Comment on above: Order Comment: Order added by Discern Expert. Result Comment: [employer] aiyana kidney disease could be indicated at eGFR's of less than 60 mL/min/1.73m2. Kidney failure is indicated at less than 15 mL/min/1.73m2. Performed By: #### 2 927561, 4582815, 46490362, 0093346, 9388712, 5969891 ####[facility] [address] [place] [address] Albumin [Mass/volume] in Ser um or PlasmaOrdered By: Gurwinder Philippe on 08-17-2022 Albumin [Mass/Vol] 4.1 g/dL 3.2-5.5 [facility] Automated erythrocytes count in urine sediment (number/area)Ordered By: Gurwinder Philippe on 08-17-2022 RBC Auto (Urine sed) [#/Area] Innumerable [HPF] 0-4 [facility] Automated leukocytes count i n urine sediment (number/area)Ordered By: Gurwinder Philippe on 08-17-2022 WBC Auto (Urine sed) [#/Area] 5-9 [HPF] 0-4 [facility] Basophils Auto (Bld) [#/Vol] Ordered By: Gurwinder Philippe on 08-17-2022 Basophils (Bld) [#/Vol] 0.1 10*3/uL 0.0-0.2 [facility] Basophils/100 WBC Auto (Bld) Ordered By: Gurwinder Philippe on 08-17-2022 Basophils/100 WBC (Bld) 1.1 % . [facility] Bilirubin Test strip Ql (U)O rdered By: Gurwinder Philippe on 08-17-2022 Bilirubin Ql (U) Negative Negative [facility] CT abdomen pelvis wo conon 0 08-17-2022 CT abdomen pelvis wo con Normal [facility] Color Auto (U)Ordered By: Suzan Philippe on 08-17-2022 Color (U) Yellow Yellow [facility] Complete Blood Count Auto Di ffon 08-17-2022 Basophils (Bld) [#/Vol] 0.1 10*3/uL Normal 0.0-0.2 [facility] Comment on above: Result Comment: PERF ORMED BY:[address] [place], [place] [phone] MEDICAL DIRECTORNATALIA MIKE M.D. Performed By: #### H EPATIC, CMP, CBC, LIPASE ####[address] Basophils/100 WBC (Bld) 1.1 % Normal . [facility] Comment on above: Performed By: #### H EPATIC, CMP, CBC, LIPASE ####[address] Eosinophils (Bld) [#/Vol] 0.5 10*3/uL High 0.0-0.45 [facility] Comment on above: Performed By: #### H EPATIC, CMP, CBC, LIPASE ####[address] Eosinophils/100 WBC (Bld) 5.6 % Normal . [facility] Comment on above: Performed By: #### H EPATIC, CMP, CBC, LIPASE ####[address] Erythrocyte distribution width (RBC) [Ratio] 12.6 % Normal 11.9-15.3 [facility] Comment on above: Performed By: #### H EPATIC, CMP, CBC, LIPASE ####[address] Hematocrit (Bld) [Volume fraction] 38.8 % Normal 34.0-46.4 [facility] Comment on above: Performed By: #### H EPATIC, CMP, CBC, LIPASE ####[address] Hemoglobin (Bld) [Mass/Vol] 13.4 g/dL Normal 11.8-15.4 [facility] Comment on above: Performed By: #### H EPATIC, CMP, CBC, LIPASE ####[address] Lymphocytes (Bld) [#/Vol] 2.1 10*3/uL Normal 1.00-4.8 [facility] Comment on above: Performed By: #### H EPATIC, CMP, CBC, LIPASE ####[address] Lymphocytes/100 WBC (Bld) 21.4 % Normal . [facility] Comment on above: Performed By: #### H EPATIC, CMP, CBC, LIPASE ####[address] MCH (RBC) [Entitic mass] 30.1 pg Normal 24.7-34.3 [facility] Comment on above: Performed By: #### H EPATIC, CMP, CBC, LIPASE ####[address] MCV (RBC) [Entitic vol] 86.9 fL Normal 80-100 [facility] Comment on above: Performed By: #### H EPATIC, CMP, CBC, LIPASE ####[address] Mean Corpuscular HGB Conc 34.6 g/dL Normal 32.0-35.0 [facility] Comment on above: Performed By: #### H EPATIC, CMP, CBC, LIPASE ####[address] Monocytes (Bld) [#/Vol] 0.7 10*3/uL Normal 0.0-0.8 [facility] Comment on above: Performed By: #### H EPATIC, CMP, CBC, LIPASE ####[address] Monocytes/100 WBC (Bld) 17.82 % Normal 0.00-20.00 [facility] Comment on above: Performed By: #### H EPATIC, CMP, CBC, LIPASE ####[address] Monocytes/100 WBC (Bld) 7.5 % Normal . [facility] Comment on above: Performed By: #### H EPATIC, CMP, CBC, LIPASE ####[address] Neutrophils (Bld) [#/Vol] 6.3 10*3/uL Normal 1.8-7.7 [facility] Comment on above: Performed By: #### H EPATIC, CMP, CBC, LIPASE ####[address] Neutrophils/100 WBC (Bld) 64.4 % Normal . [facility] Comment on above: Performed By: #### H EPATIC, CMP, CBC, LIPASE ####[address] NRBC% 0.0 /100{WBC} Normal 0-0.5 [facility] Comment on above: Performed By: #### H EPATIC, CMP, CBC, LIPASE ####[address] Platelet mean volume (Bld) [Entitic vol] 7.0 fL Normal 6.3-10.7 [facility] Comment on above: Performed By: #### H EPATIC, CMP, CBC, LIPASE ####[address] Platelets (Bld) [#/Vol] 231 10*3/uL Normal 150-450 [facility] Comment on above: Performed By: #### H EPATIC, CMP, CBC, LIPASE ####[address] RBC (Bld) [#/Vol] 4.46 10*6/uL Normal 3.60-5.00 [facility] Comment on above: Performed By: #### H EPATIC, CMP, CBC, LIPASE ####[address] WBC (Bld) [#/Vol] 9.7 10*3/uL Normal 3.8-11.6 [facility] Comment on above: Performed By: #### H EPATIC, CMP, CBC, LIPASE ####[address] Comprehensive Metabolic Pane ben 08-17-2022 Albumin [Mass/Vol] 4.1 g/dL Normal 3.2-5.5 [facility] Comment on above: Performed By: #### H EPATIC, CMP, CBC, LIPASE ####[address] Albumin/Globulin [Mass ratio] 1.3 {ratio} Normal [facility] Comment on above: Performed By: #### H EPATIC, CMP, CBC, LIPASE ####[address] ALP [Catalytic activity/Vol] 66 U/L Normal 32-92 [facility] Comment on above: Performed By: #### H EPATIC, CMP, CBC, LIPASE ####[address] ALT [Catalytic activity/Vol] 15 U/L Normal 10-60 [facility] Comment on above: Performed By: #### H EPATIC, CMP, CBC, LIPASE ####[address] Anion gap [Moles/Vol] 11.6 mmol/L Normal 6.0-15.0 [facility] Comment on above: Performed By: #### H EPATIC, CMP, CBC, LIPASE ####[address] [place] [address] [place] AST [Catalytic activity/Vol] 18 U/L Normal 10-42 [facility] Comment on above: Performed By: #### H EPATIC, CMP, CBC, LIPASE ####[place] [id number] [place] Bilirubin [Mass/Vol] 0.5 mg/dL Normal 0.3-1.2 [facility] Comment on above: Performed By: #### H EPATIC, CMP, CBC, LIPASE ####[place] [id number] [place] Calcium [Mass/Vol] 9.2 mg/dL Normal 8.2-10.2 [facility] Comment on above: Performed By: #### H EPATIC, CMP, CBC, LIPASE ####[place] [id number] [place] Chloride [Moles/Vol] 104 mmol/L Normal 95-114 [facility] Comment on above: Performed By: #### H EPATIC, CMP, CBC, LIPASE ####[place] [id number] [place] CO2 [Moles/Vol] 25.1 mmol/L Normal 22.0-30.0 [facility] Comment on above: Performed By: #### H EPATIC, CMP, CBC, LIPASE ####[place] [id number] [place] Creatinine [Mass/Vol] 0.69 mg/dL Normal 0.44-1.03 [facility] Comment on above: Performed By: #### H EPATIC, CMP, CBC, LIPASE ####[place] [id number] [place] Creatinine Clr Calc Pharmacy 134.55 [facility] Comment on above: Performed By: #### H EPATIC, CMP, CBC, LIPASE ####[address] Estimated GFR ( Digna > 60 [facility] Comment on above: Result Comment: GFR estimated reference range: According to KDOQI guidelines, <60 ml/min/1.73m2 is sufficient to diagnose a patient with chronic kidney disease. Performed By: #### H EPATIC, CMP, CBC, LIPASE ####[address] Estimated GFR (Non- Am > [address] [facility] Comment on above: Performed By: #### H EPATIC, CMP, CBC, LIPASE ####[place] [id number] [place] Globulin (S) [Mass/Vol] 3.1 g/dL Normal [facility] Comment on above: Performed By: #### H EPATIC, CMP, CBC, LIPASE ####[address] Glucose [Mass/Vol] 120 mg/dL High 70-100 [facility] Comment on above: Result Comment: [place] Glucose Reference Range is dependent on time and content of last meal. Glucose of more than 200 mg/dL in a nonstressed, ambulatory subject supports the diagnosis of Diabetes Mellitus. ADA recommended reference range Performed By: #### H EPATIC, CMP, CBC, LIPASE ####[place] [id number] [place] Potassium [Moles/Vol] 3.7 mmol/L Normal 3.5-5.1 [facility] Comment on above: Performed By: #### H EPATIC, CMP, CBC, LIPASE ####[place] [id number] [place] Protein [Mass/Vol] 7.2 g/dL Normal 6.1-7.9 [facility] Comment on above: Performed By: #### H EPATIC, CMP, CBC, LIPASE ####[place] [id number] [place] Sodium [Moles/Vol] 137 mmol/L Normal 136-146 [facility] Comment on above: Performed By: #### H EPATIC, CMP, CBC, LIPASE ####[place] [id number] [place] Urea nitrogen [Mass/Vol] 17 mg/dL Normal 9-23 [facility] Comment on above: Performed By: #### H EPATIC, CMP, CBC, LIPASE ####[address] [address] [place] Creatinine and Glomerular fi ltration rate.predicted panel (S/P/Bld)Ordered By: Gurwinder Philippe on 08-17-2022 Creatinine [Mass/Vol] 0.69 mg/dL 0.44-1.03 [facility] Dipstick and Microscopicon 0 08-17-2022 Appearance (U) Cloudy Critically abnormal Clear [facility] Comment on above: Order Comment: Name Collection Type:: Clean-Voided Midstream Performed By: #### A DDONUAPLUS, CUU ####[place] [id number] [place] Bacteria,Urine None Seen Normal None Seen [facility] Comment on above: Order Comment: Name Collection Type:: Clean-Voided Midstream Performed By: #### A DDONUAPLUS, CUU ####[address] [address] [place] Bilirubin,Urine Negative Normal Negative [facility] Comment on above: Order Comment: Name Collection Type:: Clean-Voided Midstream Performed By: #### A DDONUAPLUS, CUU ####[address] [address] [place] Color (U) Yellow Normal Yellow [facility] Comment on above: Order Comment: Name Collection Type:: Clean-Voided Midstream Performed By: #### A DDONUAPLUS, CUU ####[address] [address] [place] Glucose Ql (U) Normal Normal Normal [facility] Comment on above: Order Comment: Name Collection Type:: Clean-Voided Midstream Performed By: #### A DDONUAPLUS, CUU ####[address] [address] [place] Hyaline Casts,Urine 0-8 Normal 0-8 [facility] Comment on above: Order Comment: Name Collection Type:: Clean-Voided Midstream Result Comment: PERF ORMED BY:[place] [address] [place], [place] [phone] MEDICAL RONAN MIKE M.D. Performed By: #### A DDONUAPLUS, CUU ####[place] [id number] [place] [address] [place] Ketones Ql (U) Negative Normal Negative [facility] Comment on above: Order Comment: Name Collection Type:: Clean-Voided Midstream Performed By: #### A DDONUAPLUS, CUU ####[address] [address] [place] Leukocyte esterase Test strip Ql (U) 3+ High Negative [facility] Comment on above: Order Comment: Name Collection Type:: Clean-Voided Midstream Performed By: #### A DDONUAPLUS, CUU ####[address] [address] [place] Nitrite,Urine Negative Normal Negative [facility] Comment on above: Order Comment: Name Collection Type:: Clean-Voided Midstream Performed By: #### A DDONUAPLUS, CUU ####[address] [address] [place] Occult Blood,Urine 3+ High Negative [facility] Comment on above: Order Comment: Name Collection Type:: Clean-Voided Midstream Result Comment: PERF ORMED BY:[place] [address] [place], [place] [phone] MEDICAL RONAN MIKE M.D. Performed By: #### A DDONUAPLUS, CUU ####[address] [address] [place] pH (U) 6.5 [pH] Normal 5.0-9.0 [facility] Comment on above: Order Comment: Name Collection Type:: Clean-Voided Midstream Performed By: #### A DDONUAPLUS, CUU ####[address] [address] [place] Protein,Urine Negative Normal Negative [facility] Comment on above: Order Comment: Name Collection Type:: Clean-Voided Midstream Performed By: #### A DDONUAPLUS, CUU ####[address] [address] [place] RBC,Urine Innumerable High 0-4 [facility] Comment on above: Order Comment: Name Collection Type:: Clean-Voided Midstream Performed By: #### A DDONUAPLUS, CUU ####[address] [address] [place] Specificy [place],Urine 1.023 Normal 1.001-1.[address] [facility] Comment on above: Order Comment: Name Collection Type:: Clean-Voided Midstream Performed By: #### A DDONUAPLUS, CUU ####[place] [id number] [place] Squamous Epithelial Cell,Urine 3-4 High 0-2 [facility] Comment on above: Order Comment: Name Collection Type:: Clean-Voided Midstream Performed By: #### A DDONUAPLUS, CUU ####[address] [address] [place] Urobilinogen,Urine Normal Normal Normal [facility] Comment on above: Order Comment: Name Collection Type:: Clean-Voided Midstream Performed By: #### A DDONUAPLUS, CUU ####[address] [address] [place] WBC,Urine 5-9 High 0-4 [facility] Comment on above: Order Comment: Name Collection Type:: Clean-Voided Midstream Performed By: #### A DDONUAPLUS, CUU ####[place] [id number] [place] Direct bilirubin measurement Ordered By: Gurwinder Philippe on 08-17-2022 Bilirubin.direct [Mass/Vol] mg/dL 0.0-0.4 [facility] Eosinophils Auto (Bld) [#/Vo l]Ordered By: Gurwinder Philippe on 08-17-2022 Eosinophils (Bld) [#/Vol] 0.5 10*3/uL 0.0-0.45 [facility] Eosinophils/100 WBC Auto (Bl d)Ordered By: Gurwinder Philippe on 08-17-2022 Eosinophils/100 WBC (Bld) 5.6 % . [facility] Erythrocyte distribution wid th Auto (RBC) [Ratio]Ordered By: Gurwinder Philippe on 08-17-2022 Erythrocyte distribution width (RBC) [Ratio] 12.6 % 11.9-15.3 [facility] Estimated glomerular filtrat ion rate (GFR) non- AmericanOrdered By: Gurwinder Philippe on 08-17-2022 GFR/1.73 sq M.predicted among non-blacks MDRD (S/P/Bld) [Vol rate/Area] > 60 mL/Min [facility] Globulin Calc (S) [Mass/Vol] Ordered By: Gurwinder Philippe on 08-17-2022 Globulin (S) [Mass/Vol] 3.1 g/dL [facility] Hematocrit Auto (Bld) [Volum e fraction]Ordered By: Gurwinder Philippe on 08-17-2022 Hematocrit (Bld) [Volume fraction] 38.8 % 34.0-46.4 [facility] Hemoglobin [Mass/volume] in BloodOrdered By: Gurwinder Philippe on 08-17-2022 Hemoglobin (Bld) [Mass/Vol] 13.4 g/dL 11.8-15.4 [facility] Hepatic Panelon 08-17-2022 Bilirubin,Indirect Not performed Normal [facility] Comment on above: Performed By: #### H EPATIC, CMP, CBC, LIPASE ####[facility] [id number] Bilirubin.indirect [Mass/Vol] mg/dL Normal 0.0-0.4 [facility] Comment on above: Performed By: #### H EPATIC, CMP, CBC, LIPASE ####[facility] [id number] Ketones Auto test strip (U) [Mass/Vol]Ordered By: Gurwinder Philippe on 08-17-2022 Ketones (U) [Mass/Vol] Negative Negative [facility] - Chemistry and C hemistry - challengeOrdered By: Gurwinder Philippe on 08-17-2022 Lipase [Catalytic activity/Vol] 45.0 U/L [facility] - UrinalysisOrder ed By: Gurwinder Philippe on 08-17-2022 Hyaline casts LM Ql (Urine sed) 0-8 [LPF] 0-8 [facility] Leukocytes [#/volume] correc suzanne for nucleated erythrocytes in Blood by Automated counOrdered By: Gurwinder Philippe on 08-17-2022 WBC corrected for nucl RBC Auto (Bld) [#/Vol] 9.7 10*3/uL 3.8-11.6 [facility] Lipaseon 08-17-2022 Lipase [Catalytic activity/Vol] 45.0 U/L Normal [facility] Comment on above: Result Comment: PERF ORMED BY:[address] [place], [place] [phone] MEDICAL DIRECTORNATALIA MIKE M.D. Performed By: #### H EPATIC, CMP, CBC, LIPASE ####[facility] [id number] [place] [address] [place] Lymphocytes Auto (Bld) [#/Vo l]Ordered By: Gurwinder Philippe on 08-17-2022 Lymphocytes (Bld) [#/Vol] 2.1 10*3/uL 1.00-4.8 [facility] Lymphocytes/100 WBC Auto (Bl d)Ordered By: Gurwinder Philippe on 08-17-2022 Lymphocytes/100 WBC (Bld) 21.4 % . [facility] MCH Auto (RBC) [Entitic mass ]Ordered By: Gurwinder Philippe on 08-17-2022 MCH (RBC) [Entitic mass] 30.1 pg 24.7-34.3 [facility] MCHC Auto (RBC) [Mass/Vol]Or dered By: Gurwinder Philippe on 08-17-2022 MCHC (RBC) [Mass/Vol] 34.6 g/dL 32.0-35.0 [facility] MCV Auto (RBC) [Entitic vol] Ordered By: Gurwinder Phiilppe on 08-17-2022 MCV (RBC) [Entitic vol] 86.9 fL 80-100 [facility] Monocyte distribution width [Entitic volume] in Blood by AutomatedOrdered By: Gurwinder Philippe on 08-17-2022 Monocyte distribution width Auto (Bld) [Entitic vol] 17.82 % 0.00-20.00 [facility] Monocytes Auto (Bld) [#/Vol] Ordered By: Gurwinder Philippe on 08-17-2022 Monocytes (Bld) [#/Vol] 0.7 10*3/uL 0.0-0.8 [facility] Monocytes/100 WBC Auto (Bld) Ordered By: Gurwinder Philippe on 08-17-2022 Monocytes/100 WBC (Bld) 7.5 % . [facility] Neutrophils Auto (Bld) [#/Vo l]Ordered By: Gurwinder Philippe on 08-17-2022 Neutrophils (Bld) [#/Vol] 6.3 10*3/uL 1.8-7.7 [facility] Neutrophils/100 WBC Auto (Bl d)Ordered By: Gurwinder Philippe on 08-17-2022 Neutrophils/100 WBC (Bld) 64.4 % . [facility] Nitrite Test strip Ql (U)Ord ered By: Gurwinder Philippe on 08-17-2022 Nitrite Ql (U) Negative Negative [facility] No Panel InformationOrdered By: Gurwinder Philippe on 08-17-2022 Estimated GFR () > 60 mL/Min [facility] Comment on above: GFR estimated refere nce range: According to KDOQI guidelines, <60 ml/min/1.73m2 is sufficient to diagnose a patient with chronic kidney disease. Pharmacy Creatinine Clearance (Chem 134.55 [facility] > 60 mL/Min [facility] 45.0 U/L 22-51 [facility] 134.55 [facility] 0-8 [LPF] 0-8 [facility] Nucleated erythrocytes [Pres ence] in Blood by Automated countOrdered By: Gurwinder Philippe on 08-17-2022 Nucleated RBC Auto Ql (Bld) 0.0 /100{WBC} 0-0.5 [facility] Platelet mean volume Auto (B ld) [Entitic vol]Ordered By: Gurwinder Philippe on 08-17-2022 Platelet mean volume (Bld) [Entitic vol] 7.0 fL 6.3-10.7 [facility] Platelets Auto (Bld) [#/Vol] Ordered By: Gurwinder Philippe on 08-17-2022 Platelets (Bld) [#/Vol] 231 10*3/uL 150-450 [facility] Protein Auto test strip (U) [Mass/Vol]Ordered By: Gurwinder Philippe on 08-17-2022 Protein (U) [Mass/Vol] Negative Negative [facility] Protein [Mass/volume] in Ser um or PlasmaOrdered By: Gurwinder Philippe on 08-17-2022 Protein [Mass/Vol] 7.2 g/dL 6.1-7.9 [facility] RBC Auto (Bld) [#/Vol]Ordere d By: Gurwinder Philippe on 08-17-2022 RBC (Bld) [#/Vol] 4.46 10*6/uL 3.60-5.00 [facility] Serum or plasma alanine slaughter otransferase measurement without P-5'-P (enzymatic activiOrdered By: Gurwinder Philippe on 08-17-2022 ALT No additional P-5'-P [Catalytic activity/Vol] 15 U/L 10-60 [facility] Serum or plasma albumin/glob ulin mass ratioOrdered By: Gurwinder Philippe on 08-17-2022 Albumin/Globulin [Mass ratio] 1.3 {ratio} [facility] Serum or plasma alkaline shel[place] sphatase measurement (enzymatic activity/volume)Ordered By: Gurwinder Philippe on 08-17-2022 ALP [Catalytic activity/Vol] 66 U/L 32-92 [facility] Serum or plasma anion gap de terminationOrdered By: Gurwinder Philippe on 08-17-2022 Anion gap [Moles/Vol] 11.6 mmol/L 6.0-15.0 [facility] Serum or plasma aspartate am inotransferase measurement (enzymatic activity/volume)Ordered By: Gurwinder Philippe on 08-17-2022 AST [Catalytic activity/Vol] 18 U/L 10-42 [facility] Serum or plasma calcium jesse urement (mass/volume)Ordered By: Gurwinder Philippe on 08-17-2022 Calcium [Mass/Vol] 9.2 mg/dL 8.2-10.2 [facility] Serum or plasma chloride marcia surement (moles/volume)Ordered By: Gurwinder Philippe on 08-17-2022 Chloride [Moles/Vol] 104 mmol/L 95-114 [facility] Serum or plasma creatinine m easurement with calculation of estimated glomerular filtrOrdered By: Gurwinder Philippe on 08-17-2022 Creatinine and Glomerular filtration rate.predicted panel (S/P/Bld) 0.69 mg/dL 0.44-1.03 [facility] Serum or plasma glucose jesse urement (mass/volume)Ordered By: Gurwinder Philippe on 08-17-2022 Glucose [Mass/Vol] 120 mg/dL 70-100 [facility] Comment on above: ADA recommended refe rence rangeRandom Glucose Reference Range is dependent on time and content of last meal. Glucose of more than 200 mg/dL in a nonstressed, ambulatory subject supports the diagnosis of Diabetes Mellitus. Serum or plasma non-glucuron idated bilirubin measurement (mass/volume)Ordered By: Gurwinder Philippe on 08-17-2022 Bilirubin.indirect [Mass/Vol] TNP [facility] Comment on above: Test not performed Serum or plasma potassium me asurement (moles/volume)Ordered By: Gurwinder Philippe on 08-17-2022 Potassium [Moles/Vol] 3.7 mmol/L 3.5-5.1 [facility] Serum or plasma sodium measu rement (moles/volume)Ordered By: Gurwinder Philippe on 08-17-2022 Sodium [Moles/Vol] 137 mmol/L 136-146 [facility] Serum or plasma total biliru bin measurement (mass/volume)Ordered By: Gurwinder Philippe on 08-17-2022 Bilirubin [Mass/Vol] 0.5 mg/dL 0.3-1.2 [facility] Serum or plasma total carbon dioxide measurement (moles/volume)Ordered By: Gurwinder Philippe on 08-17-2022 CO2 [Moles/Vol] 25.1 mmol/L 22.0-30.0 [facility] Serum or plasma urea nitroge n measurement (mass/volume)Ordered By: Gurwinder Philippe on 08-17-2022 Urea nitrogen [Mass/Vol] 17 mg/dL 9-23 [facility] Specific gravity Auto test s trip (U) [Rel density]Ordered By: Gurwinder Philippe on 08-17-2022 Specific gravity (U) [Rel density] 1.023 1.001-1.[address] [facility] Squamous epithelial cells de tection in urine sediment by light microscopyOrdered By: Gurwinder Philippe on 08-17-2022 Epithelial cells.squamous LM Ql (Urine sed) 3-4 [HPF] 0-2 [facility] Urine Cultureon 08-17-2022 Bacteria identified Cx Nom (U) Normal [facility] Comment on above: Performed By: #### A DDONUAKATHLEEN, CUU ####[facility] [id number] Urine bacteria detection by automated methodOrdered By: Gurwinder Philippe on 08-17-2022 Bacteria Auto Ql (U) None seen None Seen [facility] Urine clarity by refractomet ry automatedOrdered By: Gurwinder Philippe on 08-17-2022 Clarity Refractometry automated (U) Cloudy Clear [facility] Urine culture routineOrdered By: Gurwinder Philippe on 08-17-2022 Bacteria identified Cx Nom (U) [address] [facility] Bacteria identified Cx Nom (U) [address] [facility] Urine glucose measurement by automated test strip (mass/volume)Ordered By: Gurwinder Philippe on 08-17-2022 Glucose Auto test strip (U) [Mass/Vol] Normal mg/dL Normal [facility] Urine hemoglobin detection b y automated test stripOrdered By: Gurwinder Philippe on 08-17-2022 Hemoglobin Auto test strip Ql (U) 3+ Negative [facility] Urine leukocyte esterase det ection by automated test stripOrdered By: Gurwinder Philippe on 08-17-2022 Leukocyte esterase Auto test strip Ql (U) 3+ Negative [facility] Urobilinogen Auto test strip (U) [Mass/Vol]Ordered By: Gurwinder Denae on 08-17-2022 Urobilinogen (U) [Mass/Vol] Normal mg/dL Normal [facility] WBC Auto (Bld) [#/Vol]Ordere d By: Gurwinder Denae on 08-17-2022 WBC (Bld) [#/Vol] 9.7 10*3/uL 3.8-11.6 [facility] pH Auto test strip (U)Ordere d By: Gurwinderhonorio Philippe on 08-17-2022 pH (U) 6.5 [pH] 5.0-9.0 [facility] C Blood Charcoalon Blood Culture Charcoal Normal [facility] Comment on above: Performed By: #### 1 [id number] ####[facility] [id number] [place] [address] Blood Culture Charcoal Normal [facility] Comment on above: Performed By: #### 1 [id number] ####[facility] [id number] [place] [address] Cult, Bloodon 08-16-2022 Cult, Blood Specimen Description .BLOOD Special Requests 5ML RT HAND Culture NO GROWTH 5 DAYS Report Status FINAL 08/16/2022 Normal [facility] Comment on above: Performed By: #### B CUL2 #### [facility] [address] [place] [address] Meat Apprentice: Raj Scott MD Cult,Bloodon 08-16-2022 Cult,Blood Specimen Description .BLOOD Special Requests 20 ML LAC Culture NO GROWTH 5 DAYS Report Status FINAL 08/16/2022 Normal [facility] Comment on above: Performed By: #### B CUL2 #### [facility] [address] [place] [address] Meat Apprentice: Raj Scott MD CBC With Platelet and Differ entialon 08-14-2022 Basophils (Bld) [#/Vol] 0.0 10*3/uL Normal 0.0-0.2 [facility] Comment on above: Performed By: #### U AR #### [facility] [address] [place] [address] Basophils/100 WBC (Bld) 0.5 % Normal [facility] Comment on above: Performed By: #### U AR #### [facility] [address] [place] [address] Eosinophils (Bld) [#/Vol] 0.4 10*3/uL Normal 0.0-0.7 [facility] Comment on above: Performed By: #### U AR #### [facility] [address] [place] [address] Eosinophils/100 WBC (Bld) 5.3 % Normal [facility] Comment on above: Performed By: #### U AR #### [facility] [address] [place] [address] Erythrocyte distribution width (RBC) [Ratio] 12.7 % Normal 11.5-14.5 [facility] Comment on above: Performed By: #### U AR #### [facility] [address] [place] [address] Hematocrit (Bld) [Volume fraction] 42.6 % Normal 37.0-47.0 [facility] Comment on above: Performed By: #### U AR #### [facility] [address] [place] [address] Hemoglobin (Bld) [Mass/Vol] 14.7 g/dL Normal 12.0-16.0 [facility] Comment on above: Performed By: #### U AR #### [facility] [address] [place] [address] Lymphocytes (Bld) [#/Vol] 2.2 10*3/uL Normal 1.0-4.8 [facility] Comment on above: Performed By: #### U AR #### [facility] [address] [place] [address] Lymphocytes/100 WBC (Bld) 26.3 % Normal [facility] Comment on above: Performed By: #### U AR #### [facility] [address] [place] [address] MCH (RBC) [Entitic mass] 30.2 pg Normal 27.0-31.3 [facility] Comment on above: Performed By: #### U AR #### [facility] [address] [place] [address] MCHC 34.6 % Normal 33.0-37.0 [facility] Comment on above: Performed By: #### U AR #### [facility] [address] [place] [address] MCV (RBC) [Entitic vol] 87.2 fL Normal 79.4-94.8 [facility] Comment on above: Performed By: #### U AR #### [facility] [address] [place] [address] Monocytes (Bld) [#/Vol] 0.5 10*3/uL Normal 0.2-0.8 [facility] Comment on above: Performed By: #### U AR #### [facility] [address] [place] [address] Monocytes/100 WBC (Bld) 6.5 % Normal [facility] Comment on above: Performed By: #### U AR #### [facility] [address] [place] [address] Neutrophils (Bld) [#/Vol] 5.1 10*3/uL Normal 1.4-6.5 [facility] Comment on above: Performed By: #### U AR #### [facility] [address] [place] [address] Neutrophils/100 WBC (Bld) 61.4 % Normal [facility] Comment on above: Performed By: #### U AR #### [facility] [address] [place] [address] Platelets (Bld) [#/Vol] 243 10*3/uL Normal 130-400 [facility] Comment on above: Performed By: #### U AR #### [facility] [address] [place] [address] RBC (Bld) [#/Vol] 4.89 10*6/uL Normal 4.20-5.40 [facility] Comment on above: Performed By: #### U AR #### [facility] [address] [place] [address] WBC (Bld) [#/Vol] 8.3 10*3/uL Normal 4.8-10.8 [facility] Comment on above: Performed By: #### U AR #### [facility] [address] [place] [address] CT ABDOMEN PELVIS WO CONTRAS Ton 08-14-2022 CT ABDOMEN PELVIS WO CONTRAST EXAMINATION: CT OF THE ABDOMEN AND PELVIS WITHOUT CONTRAST 08/13/2022 10:08 pm TECHNIQUE: CT of the abdomen and pelvis was performed without the administration of intravenous contrast. Multiplanar reformatted images are provided for review. Automated exposure control, iterative reconstruction, and/or weight based adjustment of the mA/kV was utilized to reduce the radiation dose to as low as reasonably achievable. COMPARISON: 07/10/2022 HISTORY: ORDERING SYSTEM PROVIDED HISTORY: possible kidney stone TECHNOLOGIST PROVIDED HISTORY: Reason for exam:->possible kidney stone Additional Contrast?->None Decision Support Exception - unselect if not a suspected or confirmed emergency medical condition->Emergency Medical Condition (MA) What reading provider will be dictating this exam?->CRC FINDINGS: Lower Chest: The lung bases are grossly clear. Organs: Liver is homogeneous in appearance. No stones seen in the gallbladder. The spleen is unremarkable. The pancreas is homogeneous. Both adrenal glands are within normal limits. 3 mm right-sided nonobstructing stones seen within the kidney. No significant distension seen in the renal collecting system. The ureters are unremarkable. No stones in the left kidney. GI/Bowel: Stomach is unremarkable. No wall thickening. The small bowel is within normal limits. No mucosal abnormality. Increased stool burden seen diffusely throughout the colon. No signs of obvious obstruction or obstructing lesion. The appendix is normal. Pelvis: The bladder is incompletely distended. The prostate is unremarkable. Peritoneum/Retroperitoneu m: No abdominal retroperitoneal lymphadenopathy. No free fluid or free air. No abnormal mass or fluid collections identified. Bones/Soft Tissues: The bony structures reveal no evidence of acute or aggressive osseous abnormality. No ventral abdominal wall mass or defect. IMPRESSION: Stable 3 mm nonobstructing stone seen within the right kidney. The remainder of the abdomen and pelvis is unremarkable. Interpreted by: Carmelita Escalante MD Signed by: Carmelita Escalante MD 08/14/22 Final result Normal [facility] Comprehensive Metabolic Pane ben 08-14-2022 Albumin [Mass/Vol] 4.6 g/dL Normal 3.5-4.6 [facility] Comment on above: Performed By: #### U AR #### [facility] [address] [place] [address] ALP [Catalytic activity/Vol] 83 U/L Normal 40-130 [facility] Comment on above: Performed By: #### U AR #### [facility] [address] [place] [address] ALT [Catalytic activity/Vol] 12 U/L Normal 0-33 [facility] Comment on above: Performed By: #### U AR #### [facility] [address] [place] [address] Anion gap [Moles/Vol] 13 mmol/L Normal 9-15 [facility] Comment on above: Performed By: #### U AR #### [facility] [address] [place] [address] AST [Catalytic activity/Vol] 14 U/L Normal 0-35 [facility] Comment on above: Performed By: #### U AR #### [facility] [address] [place] [address] Bilirubin [Mass/Vol] 0.3 mg/dL Normal 0.2-0.7 [facility] Comment on above: Performed By: #### U AR #### [facility] [address] [place] [address] Calcium [Mass/Vol] 9.7 mg/dL Normal 8.5-9.9 [facility] Comment on above: Performed By: #### U AR #### [facility] [address] [place] [address] Chloride [Moles/Vol] 99 mmol/L Normal 95-107 [facility] Comment on above: Performed By: #### U AR #### [facility] [address] [place] [address] CO2 [Moles/Vol] 23 mmol/L Normal 20-31 [facility] Comment on above: Performed By: #### U AR #### [facility] [address] [place] [address] Creatinine [Mass/Vol] 0.52 mg/dL Normal 0.50-0.90 [facility] Comment on above: Performed By: #### U AR #### [facility] [address] [place] [address] GFR >60.0 Normal >60 [facility] Comment on above: Result Comment: Pedi atric calculator link https://www.kidney.org/professionals/kdoqi/gfr_calculatorped Effective Mar 31, 2022 These results are not intended for use in patients <18 years of age. eGFR results are calculated without a race factor using the 2020 CKD-EPI equation. Careful clinical correlation is recommended, particularly when comparing to results calculated using previous equations. The CKD-EPI equation is less accurate in patients with extremes of muscle mass, extra-renal metabolism of creatinine, excessive creatinine ingestion, or following therapy that affects renal tubular secretion. Performed By: #### U AR #### [facility] [address] [place] [address] Globulin (S) [Mass/Vol] 3.0 g/dL Normal 2.3-3.5 [facility] Comment on above: Performed By: #### U AR #### [facility] [address] [place] [address] Glucose [Mass/Vol] 154 mg/dL Critically high 70-99 [facility] Comment on above: Performed By: #### U AR #### [facility] [address] [place] [address] Potassium [Moles/Vol] 3.7 mmol/L Normal 3.4-4.9 [facility] Comment on above: Performed By: #### U AR #### [facility] [address] [place] [address] Protein [Mass/Vol] 7.6 g/dL Normal 6.3-8.0 [facility] Comment on above: Performed By: #### U AR #### [facility] [address] [place] [address] Sodium [Moles/Vol] 135 mmol/L Normal 135-144 [facility] Comment on above: Performed By: #### U AR #### [facility] [address] [place] [address] Urea nitrogen [Mass/Vol] 12 mg/dL Normal 6-20 [facility] Comment on above: Performed By: #### U AR #### [facility] [address] [place] [address] CBC AND DIFFERENTIALon 08-13 % AUTOMATED IMMATURE GRAN Canceled Normal [facility] Comment on above: Order Comment: TEST CBC AND DIFFERENTIAL WAS CANCELLED, 08/13/2022 21:45 PATIENT DISCHARGED. Result Comment: Chary ture Granulocyte Count (IG) includes promyelocytes, myelocytes and metamyelocytes but does not include bands. Percent differential counts (%) should be interpreted in the context of the absolute cell counts (cells/L). Performed By: #### C BCDF #### [facility] [address], [place] [id number] % BASOPHIL Canceled Normal [facility] Comment on above: Order Comment: TEST CBC AND DIFFERENTIAL WAS CANCELLED, 08/13/2022 21:45 PATIENT DISCHARGED. Performed By: #### C BCDF #### [facility] [address], [place] [id number] % EOSINOPHIL Canceled Normal [facility] Comment on above: Order Comment: TEST CBC AND DIFFERENTIAL WAS CANCELLED, 08/13/2022 21:45 PATIENT DISCHARGED. Performed By: #### C BCDF #### [address], [place] [id number] % LYMPHOCYTE Canceled Normal [facility] Comment on above: Order Comment: TEST CBC AND DIFFERENTIAL WAS CANCELLED, 08/13/2022 21:45 PATIENT DISCHARGED. Performed By: #### C BCDF #### [address], [place] [id number] % MONOCYTE Canceled Normal [facility] Comment on above: Order Comment: TEST CBC AND DIFFERENTIAL WAS CANCELLED, 08/13/2022 21:45 PATIENT DISCHARGED. Performed By: #### C BCDF #### [address] [phone] % NEUTROPHIL Canceled Normal [facility] Comment on above: Order Comment: TEST CBC AND DIFFERENTIAL WAS CANCELLED, 08/13/2022 21:45 PATIENT DISCHARGED. Performed By: #### C BCDF #### [address] [id number] BASOPHIL Canceled Normal [facility] Comment on above: Order Comment: TEST CBC AND DIFFERENTIAL WAS CANCELLED, 08/13/2022 21:45 PATIENT DISCHARGED. Performed By: #### C BCDF #### [address], [place] [phone] DIFFERENTIAL Canceled Normal [facility] Comment on above: Order Comment: TEST CBC AND DIFFERENTIAL WAS CANCELLED, 08/13/2022 21:45 PATIENT DISCHARGED. Performed By: #### C BCDF #### [address] [place] [id number] EOSINOPHIL Canceled Normal [facility] Comment on above: Order Comment: TEST CBC AND DIFFERENTIAL WAS CANCELLED, 08/13/2022 21:45 PATIENT DISCHARGED. Performed By: #### C BCDF #### [address] [id number] HCT Canceled Normal [facility] Comment on above: Order Comment: TEST CBC AND DIFFERENTIAL WAS CANCELLED, 08/13/2022 21:45 PATIENT DISCHARGED. Performed By: #### C BCDF #### [address] [phone] HGB Canceled Normal [facility] Comment on above: Order Comment: TEST CBC AND DIFFERENTIAL WAS CANCELLED, 08/13/2022 21:45 PATIENT DISCHARGED. Performed By: #### C BCDF #### [address] [phone] LYMPHOCYTE Canceled Normal [facility] Comment on above: Order Comment: TEST CBC AND DIFFERENTIAL WAS CANCELLED, 08/13/2022 21:45 PATIENT DISCHARGED. Performed By: #### C BCDF #### [address] [phone] MCHC Canceled Normal [facility] Comment on above: Order Comment: TEST CBC AND DIFFERENTIAL WAS CANCELLED, 08/13/2022 21:45 PATIENT DISCHARGED. Performed By: #### C BCDF #### [address] [phone] MCV Canceled Normal [facility] Comment on above: Order Comment: TEST CBC AND DIFFERENTIAL WAS CANCELLED, 08/13/2022 21:45 PATIENT DISCHARGED. Performed By: #### C BCDF #### [address] [phone] MONOCYTE Canceled Normal [facility] Comment on above: Order Comment: TEST CBC AND DIFFERENTIAL WAS CANCELLED, 08/13/2022 21:45 PATIENT DISCHARGED. Performed By: #### C BCDF #### [address] [phone] NEUTROPHIL Canceled Normal [facility] Comment on above: Order Comment: TEST CBC AND DIFFERENTIAL WAS CANCELLED, 08/13/2022 21:45 PATIENT DISCHARGED. Performed By: #### C BCDF #### [address] [phone] NUCLEATED RBC Canceled Normal [facility] Comment on above: Order Comment: TEST CBC AND DIFFERENTIAL WAS CANCELLED, 08/13/2022 21:45 PATIENT DISCHARGED. Performed By: #### C BCDF #### [address] [phone] PLT Canceled Normal [facility] Comment on above: Order Comment: TEST CBC AND DIFFERENTIAL WAS CANCELLED, 08/13/2022 21:45 PATIENT DISCHARGED. Performed By: #### C BCDF #### [address] [phone] RBC Canceled Normal [facility] Comment on above: Order Comment: TEST CBC AND DIFFERENTIAL WAS CANCELLED, 08/13/2022 21:45 PATIENT DISCHARGED. Performed By: #### C BCDF #### [address] [phone] RDW-CV Canceled Normal [facility] Comment on above: Order Comment: TEST CBC AND DIFFERENTIAL WAS CANCELLED, 08/13/2022 21:45 PATIENT DISCHARGED. Performed By: #### C BCDF #### [address] [phone] WBC Canceled Normal [facility] Comment on above: Order Comment: TEST CBC AND DIFFERENTIAL WAS CANCELLED, 08/13/2022 21:45 PATIENT DISCHARGED. Performed By: #### C BCDF #### [address] [phone] CBC with Auto Differentialon 08-13-2022 Basophils (Bld) [#/Vol] 0.0 10*3/uL 0.0 - 0.2 K/uL [facility] Basophils/100 WBC (Bld) 0.5 % [facility] Eosinophils (Bld) [#/Vol] 0.4 10*3/uL 0.0 - 0.7 K/uL [facility] Eosinophils/100 WBC (Bld) 5.3 % [facility] Hematocrit (Bld) [Volume fraction] 42.6 % 37.0 - 47.0 % [facility] Hemoglobin (Bld) [Mass/Vol] 14.7 g/dL 12.0 - 16.0 g/dL [facility] Lymphocytes (Bld) [#/Vol] 2.2 10*3/uL 1.0 - 4.8 K/uL [facility] Lymphocytes/100 WBC (Bld) 26.3 % [facility] MCH (RBC) [Entitic mass] 30.2 pg 27.0 - 31.3 pg [facility] MCHC (RBC) [Mass/Vol] 34.6 % 33.0 - 37.0 % [facility] MCV (RBC) [Entitic vol] 87.2 fL 79.4 - 94.8 fL [facility] Monocytes (Bld) [#/Vol] 0.5 10*3/uL 0.2 - 0.8 K/uL [facility] Monocytes/100 WBC (Bld) 6.5 % [facility] Neutrophils Absolute 5.1 K/uL 1.4 - 6 .5 K/uL [facility] Neutrophils/100 WBC (Bld) 61.4 % [facility] Platelet distribution width (Bld) [Ratio] 12.7 % 11.5 - 14.5 % [facility] Platelets (Bld) [#/Vol] 243 10*3/uL 130 - 400 K/uL [facility] RBC (Bld) [#/Vol] 4.89 10*6/uL [facility] WBC (Bld) [#/Vol] 8.3 10*3/uL 4.8 - 10.8 K/uL [facility] COMPREHENSIVE PANELon 2022 ALBUMIN Canceled Normal [facility] Comment on above: Order Comment: TEST COMPREHENSIVE PANEL WAS CANCELLED, 08/13/2022 21:45 PATIENT DISCHARGED. Performed By: #### C MP #### [address] [phone] ALKALINE PHOSPHATASE Canceled Normal [facility] Comment on above: Order Comment: TEST COMPREHENSIVE PANEL WAS CANCELLED, 08/13/2022 21:45 PATIENT DISCHARGED. Performed By: #### C MP #### [address] [phone] ALT Canceled Normal [facility] Comment on above: Order Comment: TEST COMPREHENSIVE PANEL WAS CANCELLED, 08/13/2022 21:45 PATIENT DISCHARGED. Result Comment: Shaniqua ents treated with Sulfasalazine may generate falsely decreased results for ALT. Performed By: #### C MP #### [address] [phone] ANION GAP Canceled Normal [facility] Comment on above: Order Comment: TEST COMPREHENSIVE PANEL WAS CANCELLED, 08/13/2022 21:45 PATIENT DISCHARGED. Performed By: #### C MP #### [address] [phone] AST Canceled Normal [facility] Comment on above: Order Comment: TEST COMPREHENSIVE PANEL WAS CANCELLED, 08/13/2022 21:45 PATIENT DISCHARGED. Performed By: #### C MP #### [address] [phone] BICARBONATE Canceled Normal [facility] Comment on above: Order Comment: TEST COMPREHENSIVE PANEL WAS CANCELLED, 08/13/2022 21:45 PATIENT DISCHARGED. Performed By: #### C MP #### [address] [phone] BILIRUBIN,TOTAL Canceled Normal [facility] Comment on above: Order Comment: TEST COMPREHENSIVE PANEL WAS CANCELLED, 08/13/2022 21:45 PATIENT DISCHARGED. Performed By: #### C MP #### [address] [phone] CALCIUM Canceled Normal [facility] Comment on above: Order Comment: TEST COMPREHENSIVE PANEL WAS CANCELLED, 08/13/2022 21:45 PATIENT DISCHARGED. Performed By: #### C MP #### [address] [phone] CHLORIDE Canceled Normal [facility] Comment on above: Order Comment: TEST COMPREHENSIVE PANEL WAS CANCELLED, 08/13/2022 21:45 PATIENT DISCHARGED. Performed By: #### C MP #### [address] [phone] CREATININE Canceled Normal [facility] Comment on above: Order Comment: TEST COMPREHENSIVE PANEL WAS CANCELLED, 08/13/2022 21:45 PATIENT DISCHARGED. Performed By: #### C MP #### [address] [phone] eGFR FEMALE Canceled Normal [facility] Comment on above: Order Comment: TEST COMPREHENSIVE PANEL WAS CANCELLED, 08/13/2022 21:45 PATIENT DISCHARGED. Result Comment: CALC ULATIONS OF ESTIMATED GFR ARE PERFORMED USING THE 2020 CKD-EPI STUDY REFIT EQUATION WITHOUT THE RACE VARIABLE FOR THE IDMS-TRACEABLE CREATININE METHODS. https://jasn.asnjournals.org/content/early/ASN.85485 48058 Performed By: #### C MP #### [address] [phone] eGFR MALE Canceled Normal [facility] Comment on above: Order Comment: TEST COMPREHENSIVE PANEL WAS CANCELLED, 08/13/2022 21:45 PATIENT DISCHARGED. Result Comment: CALC ULATIONS OF ESTIMATED GFR ARE PERFORMED USING THE 2020 CKD-EPI STUDY REFIT EQUATION WITHOUT THE RACE VARIABLE FOR THE IDMS-TRACEABLE CREATININE METHODS. https://jasn.asnjournals.org/content/early/ASN.51105 52401 Performed By: #### C MP #### [address] [phone] GLUCOSE Canceled Normal [facility] Comment on above: Order Comment: TEST COMPREHENSIVE PANEL WAS CANCELLED, 08/13/2022 21:45 PATIENT DISCHARGED. Performed By: #### C MP #### [address] [phone] POTASSIUM Canceled Normal [facility] Comment on above: Order Comment: TEST COMPREHENSIVE PANEL WAS CANCELLED, 08/13/2022 21:45 PATIENT DISCHARGED. Performed By: #### C MP #### [address] [phone] SODIUM Canceled Normal [facility] Comment on above: Order Comment: TEST COMPREHENSIVE PANEL WAS CANCELLED, 08/13/2022 21:45 PATIENT DISCHARGED. Performed By: #### C MP #### [address] [phone] TOTAL PROTEIN Canceled Normal [facility] Comment on above: Order Comment: TEST COMPREHENSIVE PANEL WAS CANCELLED, 08/13/2022 21:45 PATIENT DISCHARGED. Performed By: #### C MP #### [facility] [address], [place] [id number] UREA NITROGEN Canceled Normal [facility] Comment on above: Order Comment: TEST COMPREHENSIVE PANEL WAS CANCELLED, 08/13/2022 21:45 PATIENT DISCHARGED. Performed By: #### C MP #### [address] [phone] Microscopic Urinalysison Bacteria, UA Negative Negative /HPF [facility] Epithelial Cells, UA 0-2 [facility] Sounder Hyaline Casts, UA 1-3 [facility] RBC (U) [#/Vol] /uL High [facility] [employer] WBC, UA 3-5 [facility]SR[facility]ailMeNot, Inc[facility] No Panel Informationon 08-13 Interpretation and review of laboratory results Abnormal [facility] Risk Screen - Adult Emergenc yon 08-13-2022 Risk Screen - Adult Emergency Preferred Language: Preferred Language: Preferred Language for Discussing Health Care (patient/designee)Wallisian Patient Preferred Pharmacy: Patient Preferred Pharmacy Statement: I have reviewed and updated the patient's preferred pharmacy selection for today's visit. Advanced Directives: Advance Directive/DNRno Family Violence Adult: Abuse Screen: Are you or have you been threatened or abused physically, emotionally, or sexually by anyoneno Learning Assessment (Patient): Learning Assessment (Patient): Patient is Able to be Assessed for Learningyes Factors Influencing Readiness to Learnacuteness of illness Factors that Impact Ability to Learnnone Devices/Methods Used to Communicatenone Learning Preferencesaudio Cultural Considerationsnone Developmental Considerationsnone Mormonism Considerationsnone Learning Assessment (Other Learner): Learning Assessment (Other Learner): Other learner availableno Pressure Injury/TB/Substance: Pressure Injury: Do you have a coughno Smoking Statusunable to assess Admission Risk Screen: Significant IndicatorsComplete CAGE: CAGE: Is this an injured patient at a Tra[place] Center [place]/[place]/ [place]): no Electronic Signatures: Monica Oden (STAFF N) (Signed 13-Aug-2022 18:15) Authored: Preferred Language, Patient Preferred Pharmacy, Advanced Directives, Family Violence Adult, Learning Assessment (Patient), Learning Assessment (Other Learner), Pressure Injury/TB/Substance, Pressure Injury, CAGE Last Updated: 13-Aug-2022 18:15 by Monica Oden (STAFF N) Normal [facility] Triage - EDon 08-13-2022 Triage - ED Quick Triage: Are You no Have You Given In The Last 6 Weeksno Are You Currently Breastfeedingno Chart Review: PRIMARY ASSESSMENT GISEL CARLTON's primary assessment is Within Defined Limits. The airway is open and patent. Breathing spontaneous and unlabored with clear breath sounds bilaterally. Circulation is normal with good peripheral pulses. Skin is warm and dry and color is normal for race. ARRIVAL INFORMATION Means of Arrival: Ambulatory Mode of Arrival: private vehicle Arrival From: home Accompanied By: self CHIEF COMPLAINT GISEL CARLTON is a Female patient with a chief complaint of flank pain (pt c/o right flank pain with nausea for 2 days). Triage Date/Time: 13-Aug-2022 18:15 TRUDY: 3 Pain Rating (0-10): 8 = Severe Vital Signs: Temperature: 99.1F ( 37.3C) taken skin probe Blood Pressure: 189/123 Mean: Heart Rate: 128 Respiratory Rate: 18 Pulse Oximetry: 96% Height: 5 feet 7.00 inches. 170.1 CM Weight: 253.5 pounds. Calculated 115.0 kg. Calculated BMI (kg/m2): 39.745 Calculated BSA (m2) 2.33 [place] Coma Scale: Best Eye Response: (E4) spontaneous Best Motor Response: (M6) obeys commands Best Verbal Response: (V5) oriented Mariaelena Score: 15 Allergies: yes Patient has homicidal thoughts: no Symptom Notes: . Symptoms Are POSITIVE For: dysuria and flank pain. Symptoms Are Negative For: anorexia, chills, fever, frequency, hematuria, malaise, nausea and urgency. Risk Screens Suicide Risk Screen In the Past Month: Have you wished you were or wished you could go to sleep and not wake up no In the Past Month: Have you had any actual thoughts of killing yourself no In Your Lifetime: Have you ever done anything, started to do anything, or prepared to do anything to end your life no Sifuentes Fall Scale Screening Has the patient fallen before (or is the patient in the ED as a result of a fall) has not had a fall Does the patient have an impaired gait does not have impaired gait Is the patient cognitively impaired not cognitively impaired Interventions: Sifuentes Fall Interventions: LOW INTERVENTIONS: *patient oriented to surroundings and call system, * patient/family falls education completed and documented, *patients fall status communicated during bedside handoff, *whiteboard updated, *mode of toileting discussed with patient, *bed in low position with brakes locked, *call light in reach, * non-skid footwear PAST MEDICAL HISTORY Immunization History: Last Known Tetanus Immunization: Greater than 5 years but less than 10 years TRAVEL HISTORY Travel History Coronavirus Screening: no exposure or symptoms Travel Exposure History: NO travel to International locations in the past 30 days PAIN Pain Scale Used: SERGIO Pain Rating (0-10): 8 = Severe Past Medical History: Past Medical History Reviewedyes Electronic Signatures: Monica Oden (STAFF N) (Signed 13-Aug-2022 18:19) Authored: Quick Triage, Risk Screens, Pain, Arrival, ABCD, Immunizations, Travel History, Chart Review, Scores, Past Medical History Last Updated: 13-Aug-2022 18:19 by Monica Oden (STAFF N) Normal [facility] UA MICROSCOPICon 08-13-2022 RBC 136 /HPF Abnormal 0-5 [facility] Comment on above: Performed By: #### C BCDF #### [address] [id number] SQUAMOUS EPITH. CELLS 1 /HPF Normal [facility] Comment on above: Performed By: #### C BCDF #### [address] [phone] WBC 8 /HPF Abnormal 0-5 [facility] Comment on above: Performed By: #### C BCDF #### [address] [phone] URINALYSIS WITH CULTURE IF I NDICATEDon 08-13-2022 Appearance (U) CLEAR Normal CLEAR [facility] Comment on above: Performed By: #### U ARFX #### [address] [phone] Bilirubin Ql (U) Negative Normal NEGATIVE [facility] Comment on above: Performed By: #### U ARFX #### [address] [phone] Color (U) YELLOW Normal STRAW,YELL OW [facility] Comment on above: Performed By: #### U ARFX #### [address] [phone] Glucose Ql (U) Negative Normal NEGATIVE [facility] Comment on above: Performed By: #### U ARFX #### [address] [phone] Hemoglobin Ql (U) LARGE (3+) Abnormal NEGATIVE [facility] Comment on above: Performed By: #### U ARFX #### [address] [phone] Ketones Ql (U) Negative Normal NEGATIVE [facility] Comment on above: Performed By: #### U ARFX #### [address] [phone] Leukocyte esterase Test strip Ql (U) TRACE Abnormal NEGATIVE [facility] Comment on above: Performed By: #### U ARFX #### [address] [phone] Nitrite Ql (U) Negative Normal NEGATIVE [facility] Comment on above: Performed By: #### U ARFX #### [address] [phone] pH (U) 6.0 [pH] Normal 5.0 - 8.0 [facility] Comment on above: Performed By: #### U ARFX #### [address] [phone] Protein Ql (U) 30 (1+) Abnormal NEGATIVE [facility] Comment on above: Performed By: #### U ARFX #### [address] [phone] Specific gravity (U) [Rel density] 1.005 Normal 1.005 - 1.035 [facility] Comment on above: Performed By: #### U ARFX #### [address] [phone] Urobilinogen (U) [Mass/Vol] mg/dL Normal 0.0 - 1.9 [facility] Comment on above: Performed By: #### U ARFX #### [address] [phone] URINE CULTURE,BACTERIALon URINE CULTURE,BACTERIAL PATIENT: GISEL CARLTON LOCATION: QUAN PAYTON#: [id number] : 75 AGE: SEX: F ORDERED BY: SANDI GATICA SOURCE: URINE COLLECTED: 08/13/22 18:28 ANTIBIOTICS AT [facility].: RECEIVED : 08/13/22 22:58 SITE: R E S U L T S URINE CULTURE,BACTERIAL FINAL 08/14/22 15:44 NO SIGNIFICANT GROWTH. Normal [facility] Comment on above: Performed By: #### U RINC #### [facility] [address] [place] [address] Urinalysis with Reflex to Cu ltureon 08-13-2022 Bilirubin Urine Negative Negative [facility] [employer] [facility] Blood, Urine LARGE Abnormal Negative [employer] [facility] Clarity, UA Clear Clear [facility] Color, UA ORANGE Abnormal Straw/Clay ow [facility] Glucose, Ur Negative Negative mg/dL [employer] [facility] Ketones Ql (U) Negative Negative mg/dL [employer] [facility] Leukocyte esterase Test strip Ql (U) TRACE Abnormal Negative [facility] Nitrite, Urine Negative Negative [facility] pH, UA 5.5 5.0 - 9.0 [facility] Protein, UA Negative Negative mg/dL [facility] Specific [place], UA 1.011 1.005 - 1.030 [facility] Urine Reflex to Culture Not Indicated [facility] Urobilinogen, Urine 0.2 NINF [facility] Urinalysis, reflex to cultur andre 08-13-2022 Urine Reflexed to Culture Not Indicated Normal [facility] Comment on above: Performed By: #### U AR #### [facility] [address] [place] [address] Bilirubin Ql (U) Negative Normal Negative [facility] Comment on above: Performed By: #### U AR #### [facility] [address] [place] [address] Clarity (U) Clear Normal Clear [facility] Comment on above: Performed By: #### U AR #### [facility] [address] [place] [address] Color (U) ORANGE Abnormal Straw/Clay [facility] Comment on above: Performed By: #### U AR #### [facility] [address] [place] [address] Glucose Ql (U) Negative Normal Negative [facility] Comment on above: Performed By: #### U AR #### [facility] [address] [place] [address] Hemoglobin Ql (U) LARGE Abnormal Negative [facility] Comment on above: Performed By: #### U AR #### [facility] [address] [place] [address] Ketones Ql (U) Negative Normal Negative [facility] Comment on above: Performed By: #### U AR #### [facility] [address] [place] [address] Leukocyte esterase Test strip Ql (U) TRACE Abnormal Negative [facility] Comment on above: Performed By: #### U AR #### [facility] [address] [place] [address] Nitrite Ql (U) Negative Normal Negative [facility] Comment on above: Performed By: #### U AR #### [facility] [address] [place] [address] pH (U) 5.5 [pH] Normal 5.0-9.0 [facility] Comment on above: Performed By: #### U AR #### [facility] [address] [place] [address] Protein Ql (U) Negative Normal Negative [facility] Comment on above: Performed By: #### U AR #### [facility] [address] [place] [address] Specific gravity (U) [Rel density] 1.011 Normal 1.005-1.03 [facility] Comment on above: Performed By: #### U AR #### [facility] [address] [place] [address] Urobilinogen Qn (U) 0.2 {Diaz'U}/dL Normal < 2.0 [facility] Comment on above: Performed By: #### U AR #### [facility] [address] [place] [address] Urine Microscopicon 08-13-19 23 Bacteria LM.HPF (Urine sed) [#/Area] Negative Normal Negative [facility] Comment on above: Performed By: #### C MP #### [facility] [address] [place] [address] Urine Epithelial Cells Auto 0-2 Normal 0-5 [facility] Comment on above: Performed By: #### C MP #### [facility] [address] [place] [address] Urine Hyaline Casts Auto 1-3 Normal 0-5 [facility] Comment on above: Performed By: #### C MP #### [facility] [address] [place] [address] Urine RBC Auto >100 Critically high 0-5 [facility] Comment on above: Performed By: #### C MP #### [facility] [address] [place] [address] Urine WBC Auto 3-5 Normal 0-5 [facility] Comment on above: Performed By: #### C MP #### [facility] [address] [place] [address] Coding Summary.on 08-12-2022 Coding Summary. Normal [facility] Cult,Urineon 08-12-2022 Cult,Urine Specimen Description .URINE Culture NO SIGNIFICANT GROWTH Report Status FINAL 08/12/2022 Normal [facility] Comment on above: Performed By: #### U RC #### [facility] [address], [place] [id number] Meat Apprentice: Collin Melgar MD [facility] [address] [place] [address] Dr[address] [place], [place] [id number] Meat Apprentice: Raj Scott MD CBC with Diffon 08-11-2022 Abs. Basophil 0.05 k/uL Normal 0.00-0.20 [facility] Comment on above: Performed By: #### C DP, CP #### [address] [place], [place] [address]83 Meat Apprentice: Raj Scott MD Abs.Imm.Granulocyte <0.03 Normal 0.00-0.30 [facility] Comment on above: Performed By: #### C DP, CP #### [facility] [address] [place] [address] Meat Apprentice: Raj Scott MD Abs.Neutrophil (Seg) 4.02 k/uL Normal 1.50-8.[address] [facility] Comment on above: Performed By: #### C DP, CP #### [facility] [address] [place] [address] [address], [place] 1089783 Meat Apprentice: Raj Scott MD Basophils/100 WBC (Bld) 1 % Normal 0-2 [facility] Comment on above: Performed By: #### C DP, CP #### [address] [place], [place] 2772783 Meat Apprentice: Raj Scott MD Eosinophils (Bld) [#/Vol] 0.41 10*3/uL Normal 0.00-0.44 [facility] Comment on above: Performed By: #### C DP, CP #### [address] [place], [place] 06[address]83 Meat Apprentice: Raj Scott MD Eosinophils/100 WBC (Bld) 6 % High 1-4 [facility] Comment on above: Performed By: #### C DP, CP #### [address] [place] [address] Meat Apprentice: Raj Scott MD Erythrocyte distribution width (RBC) [Ratio] 12.0 % Normal 11.8-14.4 [facility] Comment on above: Performed By: #### C DP, CP #### [address] [place], [facility]83 Meat Apprentice: Raj Scott MD Hematocrit (Bld) [Volume fraction] 40.5 % Normal 36.3-47.1 [facility] Comment on above: Performed By: #### C DP, CP #### [address] [place], [facility]83 Meat Apprentice: Raj Scott MD Hemoglobin (Bld) [Mass/Vol] 14.6 g/dL Normal 11.9-15.1 [facility] Comment on above: Performed By: #### C DP, CP #### [address] [place], [place] 5284183 Meat Apprentice: Raj Scott MD Immature granulocytes/100 WBC (Bld) 0 % Normal 0 [facility] Comment on above: Performed By: #### C DP, CP #### [address] [place], [facility]83 Meat Apprentice: Raj Scott MD Lymphocytes (Bld) [#/Vol] 1.95 10*3/uL Normal 1.10-3.70 [facility] Comment on above: Performed By: #### C DP, CP #### [address] [place], [facility]83 Meat Apprentice: Raj Scott MD Lymphocytes/100 WBC (Bld) 28 % Normal 24-43 [facility] Comment on above: Performed By: #### C DP, CP #### [address] [place], [facility]83 Meat Apprentice: Raj Scott MD MCH (RBC) [Entitic mass] 31.9 pg Normal 25.2-33.5 [facility] Comment on above: Performed By: #### C DP, CP #### [address] [place], [facility]83 Meat Apprentice: Raj Scott MD MCHC (RBC) [Mass/Vol] 36.0 g/dL High 28.4-34.8 [facility] Comment on above: Performed By: #### C DP, CP #### [address] [place], [facility]83 Meat Apprentice: Raj Scott MD MCV (RBC) [Entitic vol] 88.6 fL Normal 82.6-102.9 [facility] Comment on above: Performed By: #### C DP, CP #### [address] [place], [facility]83 Meat Apprentice: Raj Scott MD Monocytes (Bld) [#/Vol] 0.44 10*3/uL Normal 0.10-1.20 [facility] Comment on above: Performed By: #### C DP, CP #### [address] [place], [place] 818[address]83 Meat Apprentice: Raj Scott MD Monocytes/100 WBC (Bld) 6 % Normal 3-12 [facility] Comment on above: Performed By: #### C DP, CP #### [facility] [address] [place], [place] 3155183 Meat Apprentice: Raj Scott MD Neutrophil (Seg) 59 % Normal 36-65 [facility] Comment on above: Performed By: #### C DP, CP #### [facility] [address] [place], [place] 665[address]83 Meat Apprentice: Raj Scott MD NRBC Automated 0.0 per 100 WBC Normal 0.0 [facility] Comment on above: Performed By: #### C DP, CP #### [address] [place], [place] 8973883 Meat Apprentice: Raj Scott MD Platelet mean volume (Bld) [Entitic vol] 9.0 fL Normal 8.1-13.5 [facility] Comment on above: Performed By: #### C DP, CP #### [address] [place], [place] 6927183 Meat Apprentice: Raj Scott MD Platelets (Bld) [#/Vol] 217 10*3/uL Normal 138-453 [facility] Comment on above: Performed By: #### C DP, CP #### [address] [place], [place] 3382883 Meat Apprentice: Raj Scott MD RBC (Bld) [#/Vol] 4.57 10*6/uL Normal 3.95-5.11 [facility] Comment on above: Performed By: #### C DP, CP #### [address] [place], [place] 2868283 Meat Apprentice: Raj Scott MD WBC (Bld) [#/Vol] 6.9 10*3/uL Normal 3.5-11.3 [facility] Comment on above: Performed By: #### C DP, CP #### [facility] [address] [place] [address] Meat Apprentice: Raj Scott MD CT ABDOMEN PELVIS WO CONTRAS Ton 08-11-2022 CT ABDOMEN PELVIS WO CONTRAST EXAMINATION: CT OF THE ABDOMEN AND PELVIS WITHOUT CONTRAST, 08/11/2022 2:49 pm TECHNIQUE: CT of the abdomen and pelvis was performed without the administration of intravenous contrast. Multiplanar reformatted images are provided for review. Automated exposure control, iterative reconstruction, and/or weight based adjustment of the mA/kV was utilized to reduce the radiation dose to as low as reasonably achievable. COMPARISON: None HISTORY: ORDERING SYSTEM PROVIDED HISTORY: Right flank TECHNOLOGIST PROVIDED HISTORY: Right flank Decision Support Exception - unselect if not a suspected or confirmed emergency medical condition->Emergency Medical Condition (MA) Is the patient ? No 47-year-old female who complains of right flank pain. FINDINGS: Lower Chest: Mild bibasilar atelectasis and respiratory motion. No free intra-abdominal air. Organs: Prior cholecystectomy. Liver, spleen, adrenal glands, pancreas, and left kidneys grossly unremarkable in appearance. 3 mm nonobstructing calculus at the midpole right kidney. No obstructing calculus, hydronephrosis, or hydroureter. GI/Bowel: Moderate stool burden. No significant dilation of small bowel loops to suggest small bowel obstruction. Normal appendix. Pelvis: Urinary bladder is collapsed. Pelvic phleboliths. No free fluid in the pelvis. No inguinal or pelvic sidewall lymphadenopathy. Peritoneum/Retroperitoneu m: Atherosclerotic calcification of the iliac branch vasculature. Abdominal aorta normal in appearance and caliber. No retroperitoneal lymphadenopathy. Psoas muscles normal in size and symmetric in appearance. Bones/Soft Tissues: Mild diffuse degenerative changes throughout the spine. IMPRESSION: 1. 3 mm nonobstructing midpole right renal calculus. No hydronephrosis. No obstructing calculus. 2. Prior cholecystectomy. 3. Normal appendix. 4. Moderate stool burden. Interpreted by: Drew Ferguson MD Signed by: Drew Ferguson MD 08/11/22 Final result Normal [facility] Comp Metabolic Profon 2022 Albumin [Mass/Vol] 4.4 g/dL Normal 3.5-5.2 [facility] Comment on above: Performed By: #### C DP, CP #### [facility] [address] [place], [place] [address]83 Meat Apprentice: Raj Scott MD Albumin/Glob Ratio 1.3 Normal 1.0-2.5 [facility] Comment on above: Performed By: #### C DP, CP #### [facility] [address] [place], [place] 2226683 Meat Apprentice: Raj Scott MD Alkaline Phos 85 U/L Normal 35-104 [facility] Comment on above: Performed By: #### C DP, CP #### [facility] [address] [place], [place] 3395483 Meat Apprentice: Raj Scott MD ALT [Catalytic activity/Vol] 10 U/L Normal 5-33 [facility] Comment on above: Performed By: #### C DP, CP #### [facility] [address] [place], [place] 7488483 Meat Apprentice: Raj Scott MD Anion gap [Moles/Vol] 11 mmol/L Normal 9-17 [facility] Comment on above: Performed By: #### C DP, CP #### [facility] [address] [place], [place] 4945483 Meat Apprentice: Raj Scott MD AST [Catalytic activity/Vol] 17 U/L Normal <32 [facility] Comment on above: Performed By: #### C DP, CP #### [facility] [address] [place] [address] Meat Apprentice: Raj Scott MD Bilirubin [Mass/Vol] 0.4 mg/dL Normal 0.3-1.[address] [facility] Comment on above: Performed By: #### C DP, CP #### [facility] [address] [place] [address] Meat Apprentice: Raj Scott MD BUN/CRE Ratio 30 High 9-20 [facility] Comment on above: Performed By: #### C DP, CP #### [facility] [address] [place], [place] 5443683 Meat Apprentice: Raj Scott MD Calcium [Mass/Vol] 9.8 mg/dL Normal 8.6-10.4 [facility] Comment on above: Performed By: #### C DP, CP #### [facility] [address] [place] [address] Meat Apprentice: Raj Scott MD Chloride [Moles/Vol] 103 mmol/L Normal 98-[address] [facility] Comment on above: Performed By: #### C DP, CP #### [facility] [address] [place] [address] Meat Apprentice: Raj Scott MD CO2 [Moles/Vol] 25 mmol/L Normal 20-31 [facility] Comment on above: Performed By: #### C DP, CP #### [facility] [address] [place], [place] 8063183 Meat Apprentice: Raj Scott MD Creatinine [Mass/Vol] 0.54 mg/dL Normal 0.50-0.90 [facility] Comment on above: Performed By: #### C DP, CP #### [facility] [address] [place] [address] Meat Apprentice: Raj Scott MD GFR/1.73 sq M.predicted among non-blacks MDRD (S/P/Bld) [Vol rate/Area] mL/min/{1.73_m2} Normal >60 [facility] Comment on above: Result Comment: These results are not intended for use in patients <18 years of age. eGFR results are calculated without a race factor using the 2020 CKD-EPI equation. Careful clinical correlation is recommended, particularly when comparing to results calculated using previous equations. The CKD-EPI equation is less accurate in patients with extremes of muscle mass, extra-renal metabolism of creatine, excessive creatine ingestion, or following therapy that affects renal tubular secretion. Performed By: #### C DP, CP #### [facility] [address] [place], [place] 8992483 Meat Apprentice: Raj Scott MD Glucose [Mass/Vol] 201 mg/dL High 70-99 [facility] Comment on above: Performed By: #### C DP, CP #### [address] [place] [address] Meat Apprentice: Raj Scott MD Potassium [Moles/Vol] 4.0 mmol/L Normal 3.7-5.3 [facility] Comment on above: Performed By: #### C YANI, CP #### [facility] [address] [place] [address] [place] [address] Meat Apprentice: Raj Scott MD Protein [Mass/Vol] 7.7 g/dL Normal 6.4-8.3 [facility] Comment on above: Performed By: #### C DP, CP #### [address] [place] [address] Meat Apprentice: Raj Scott MD Sodium [Moles/Vol] 139 mmol/L Normal 135-144 [facility] Comment on above: Performed By: #### C DP, CP #### [facility] [address] [place] [address] [place] [address] Meat Apprentice: Raj Scott MD Urea nitrogen [Mass/Vol] 16 mg/dL Normal 6-20 [facility] Comment on above: Performed By: #### C DP, CP #### [address] [place], [place] 07[address]83 Meat Apprentice: Raj Scott MD UA w/Reflex Cultureon 2022 Bilirubin, SemiQt,Ur Negative Normal NEG [facility] Comment on above: Performed By: #### U MICAO, UAX #### [facility] [address] [place], [place] [address]285[address] Meat Apprentice: Raj Scott MD Blood, Urine 3+ Abnormal NEG [facility] Comment on above: Performed By: #### U MICAO, UAX #### [facility] [address] [place], [place] 6428[address] Meat Apprentice: Raj Scott MD Clarity (U) Cloudy Abnormal CLEAR [facility] Comment on above: Performed By: #### U MICAO, UAX #### [facility] [address] [place], [place] 5034383 Meat Apprentice: Raj Scott MD Color (U) Yellow Normal YEL [facility] Comment on above: Performed By: #### U MICAO, UAX #### [facility] [address] [place], [place] 3137283 Meat Apprentice: Raj Scott MD Glucose Ql (U) Negative Normal NEG [facility] in Hospital Comment on above: Performed By: #### U MICAO, UAX #### [address] [place], [place] 400[address]83 Meat Apprentice: Raj Scott MD Ketones Ql (U) Negative Normal NEG [facility] Comment on above: Performed By: #### U MICAO, UAX #### [facility] [address] [place], [place] 74[address]83 Meat Apprentice: Raj Scott MD Leukocyte esterase Test strip Ql (U) MODERATE Abnormal NEG [facility] Comment on above: Performed By: #### U MICAO, UAX #### [facility] [address] [place], [place] 600[address]83 Meat Apprentice: Raj Scott MD Nitrite,Ur Negative Normal NEG [facility] Comment on above: Performed By: #### U MICAO, UAX #### [facility] [address] [place], [place] 460[address]83 Meat Apprentice: Raj Scott MD PH,Ur 6.0 Normal 5.0-9.0 [facility] Comment on above: Performed By: #### U MICAO, UAX #### [facility] [address] [place], [place] 28[address]83 Meat Apprentice: Raj Scott MD Protein Ql (U) Negative Normal NEG [facility] Comment on above: Performed By: #### U MICAO, UAX #### [facility] [address] [place] [address] Dr[place], [place] [phone] Meat Apprentice: Raj Scott MD Spec. [place],Ur 1.025 High 1.010-1.02 0 [facility] Comment on above: Performed By: #### U MICAO, UAX #### [facility] [address] [place] [address] Dr[place], [place] 2997383 Meat Apprentice: Raj Scott MD Urobilinogen,Ur Normal Normal NORM [facility] Comment on above: Performed By: #### U MICAO, UAX #### [address] [place], [place] 3350283 Meat Apprentice: Raj Scott MD Urinalysis,Microon 3 Bacteria 1+ Abnormal NONE [facility] Comment on above: Performed By: #### U MICAO, UAX #### [facility] [address] [place], [place] [phone] Meat Apprentice: Raj Scott MD Epithelial cells LM Ql (Urine sed) 10 TO 20 Normal 0-25 [facility] Comment on above: Performed By: #### U MICAO, UAX #### [facility] [address] [place] [address] Meat Apprentice: Raj Scott MD Urine RBC's GREATER THAN 100 Normal 0-2 [facility] Comment on above: Performed By: #### U KAYDEN, UAX #### [facility] [address] [place] [address] Meat Apprentice: Raj Scott MD Urine WBC's 10 TO 20 Normal 0-5 [facility] Comment on above: Performed By: #### U KAYDEN UAX #### [facility] [address] [place] [address] Meat Apprentice: Raj Scott MD C Urineon 08-10-2022 Bacteria identified Cx Nom (U) Normal [facility] Comment on above: Performed By: #### 2 468466, [id number] ####[facility] [address] [place] [address] CT Abdomen/Pelvis w/o Contra ston 08-09-2022 CT Abdomen/Pelvis w/o Contrast Normal [facility] ED Clinical Summaryon 2022 ED Clinical Summary Normal [facility] ED Patient Education Noteon 08-09-2022 ED Patient Education Note Normal [facility] ED Patient Summaryon 023 ED Patient Summary Normal [facility] Auto Diffon 08-08-2022 Basophils/100 WBC (Bld) 0.8 % Normal 0.0-2.0 [facility] Comment on above: Order Comment: Order Added by Discern Expert. Performed By: #### 2 902681, 4861562, 9838915, 6828134, 3001820, 06573930 ####[facility] [address] [place] [address] Basophils/Leukocytes Auto (Bld) [Pure # fraction] 0.1 E9/L Normal 0.0-0.2 [facility] Comment on above: Order Comment: Order Added by Discern Expert. Performed By: #### 2 182060, 2852612, 3572256, 9216154, 2734243, 96733625 ####[facility] [address] [place] [address] Eosinophils/100 WBC (Bld) 6.9 % Normal 0.0-8.0 [facility] Comment on above: Order Comment: Order Added by Discern Expert. Performed By: #### 2 492596, 8461311, 5024907, 3767613, 5622597, 75304909 ####[address] [address] Eosinophils/Leukocytes Auto (Bld) [Pure # fraction] 0.6 E9/L High 0.0-0.5 [facility] Comment on above: Order Comment: Order Added by Discern Expert. Performed By: #### 2 042457, 3408817, 9724564, 5937881, 0134418, 92225972 ####[address] [address] Lymphocytes/100 WBC (Bld) 29.5 % Normal 14.0-50.0 [facility] Comment on above: Order Comment: Order Added by Discern Expert. Performed By: #### 2 627834, 6215147, 1582823, 8455424, 9031733, 92688347 ####[address] [address] Lymphocytes/Leukocytes Auto (Bld) [Pure # fraction] 2.4 E9/L Normal 1.0-4.0 [facility] Comment on above: Order Comment: Order Added by Discern Expert. Performed By: #### 2 057372, 9528369, 8643539, 4330468, 7975977, 25275356 ####[address] [address] Monocytes/100 WBC (Bld) 6.3 % Normal 4.0-14.0 [facility] Comment on above: Order Comment: Order Added by Discern Expert. Performed By: #### 2 258818, 7034222, 1546204, 4668299, 0412436, 44467011 ####[address] [address] Monocytes/Leukocytes Auto (Bld) [Pure # fraction] 0.5 E9/L Normal 0.2-1.0 [facility] Comment on above: Order Comment: Order Added by Discern Expert. Performed By: #### 2 982379, 1023383, 1590949, 3750298, 8128000, 82261272 ####[facility] [address] [place] [address] Neutrophils/100 WBC (Bld) 56.5 % Normal 36.0-75.0 [facility] Comment on above: Order Comment: Order Added by Discern Expert. Performed By: #### 2 917043, 6455507, 0090106, 6173310, 7258065, 37511541 ####[facility] [address] [place] [address] Neutrophils/Leukocytes Auto (Bld) [Pure # fraction] 4.5 E9/L Normal 2.0-7.5 [facility] Comment on above: Order Comment: Order Added by Discern Expert. Performed By: #### 2 490242, 7924675, 0609527, 2821871, 6509398, 94239527 ####[facility] [address] [place] [address] BMPon 08-08-2022 Creatinine [Mass/Vol] 0.6 mg/dL Normal 0.5-1.3 [facility] Comment on above: Performed By: #### 2 567773, 2290762, 3712977, 5925853, 3892139, 15074146 ####[facility] [address] [place] [address] Urea nitrogen [Mass/Vol] 17 mg/dL Normal 5-21 [facility] Comment on above: Performed By: #### 2 430033, 3642165, 3124548, 9269504, 7600157, 48332659 ####[facility] [address] [place] [address] Urea nitrogen/Creatinine [Mass ratio] 28 No Units High 10-20 [facility] Comment on above: Performed By: #### 2 387627, 7662881, 6659410, 3444228, 7365472, 37906122 ####[facility] [address] [place] [address] Anion gap [Moles/Vol] 14 mmol/L Normal 6-16 [facility] Comment on above: Performed By: #### 2 815918, 5642307, 6854978, 1750677, 4313452, 92809127 ####[facility] [address] [place] [address] Calcium [Mass/Vol] 9.4 mg/dL Normal 8.9-11.1 [facility] Comment on above: Performed By: #### 2 094285, 6892908, 1792759, 4667669, 4493585, 77757402 ####[facility] [address] [place] [place] [address] Chloride [Moles/Vol] 101 mmol/L Normal 101-111 [facility] Comment on above: Performed By: #### 2 483423, 7669120, 2494901, 0663702, 6859846, 21933006 ####[facility] [address] [place] [address] CO2 [Moles/Vol] 25 mmol/L Normal 21-31 [facility] Comment on above: Performed By: #### 2 285122, 0266788, 3934999, 4565930, 6372312, 09966295 ####[facility] [address] [place] [address] Glucose [Mass/Vol] 182 mg/dL Normal 55-199 [facility] Comment on above: Result Comment: If t his glucose result represents a fasting glucose, interpretation should refer to the following reference range: 55-99 mg/dL Performed By: #### 2 868492, 0465248, 3594771, 9481202, 0728514, 95990939 ####[facility] [address] [place] [address] Potassium [Moles/Vol] 3.8 mmol/L Normal 3.5-5.3 [facility] Comment on above: Performed By: #### 2 966963, 2960317, 0469961, 5612596, 5086103, 64399211 ####[facility] [address] [place] [address] Sodium [Moles/Vol] 136 mmol/L Normal 135-145 [facility] Comment on above: Performed By: #### 2 943302, 8343375, 0184497, 6971047, 0730329, 42379403 ####[facility] [address] [place] [address] CBC w/ Auto Diffon 3 Erythrocyte distribution width (RBC) [Ratio] 12.8 % Normal 10.9-14.2 [facility] Comment on above: Performed By: #### 2 450454, 9347619, 8787129, 4027646, 0383615, 12292537 ####[facility] [address] [place] [address] Hematocrit (Bld) [Volume fraction] 43.5 % Normal 34.0-46.0 [facility] Comment on above: Performed By: #### 2 734661, 4325065, 1719354, 6581513, 3798146, 16017836 ####[facility] [address] [place] [address] Hemoglobin (Bld) [Mass/Vol] 14.6 g/dL Normal 12.0-16.0 [facility] Comment on above: Performed By: #### 2 638988, 0453753, 6023681, 0525298, 9221165, 93720801 ####[facility] [address] [place] [address] MCH (RBC) [Entitic mass] 29.5 pg Normal 27.0-34.0 [facility] Comment on above: Performed By: #### 2 761905, 6940332, 9840768, 3264233, 6866009, 60975381 ####[facility] [address] [place] [address] MCHC (RBC) [Mass/Vol] 33.5 g/dL Normal 31.4-36.0 [facility] Comment on above: Performed By: #### 2 014042, 1942004, 5347922, 9929094, 0309875, 39149352 ####[address] [place] [address] MCV (RBC) [Entitic vol] 88.1 fL Normal 80.0-100.0 [facility] Comment on above: Performed By: #### 2 191349, 3391448, 5236790, 6368413, 5837368, 36946531 ####[address] [address] Platelet mean volume (Bld) [Entitic vol] 7.0 fL Normal 6.4-10.8 [facility] Comment on above: Performed By: #### 2 829114, 4699798, 1013635, 2501905, 3294294, 91056752 ####[address] [address] Platelets (Bld) [#/Vol] 238.0 E9/L Normal 150.0-500. 0 [facility] Comment on above: Performed By: #### 2 799486, 5050117, 8390595, 4083275, 9000758, 65190409 ####[address] [address] RBC (Bld) [#/Vol] 4.9 E12/L Normal 4.3-5.9 [facility] Comment on above: Performed By: #### 2 097075, 8993049, 7112208, 0550317, 0329837, 64389891 ####[address] [place] [address] WBC corrected for nucl RBC Auto (Bld) [#/Vol] 8.0 E9/L Normal 4.0-11.0 [facility] Comment on above: Performed By: #### 2 727659, 2957970, 5096740, 6410071, 4040632, 71390255 ####[address] [address] CHEMISTRYOrdered By: SYSTEM SYSTEM on 08-08-2022 Albumin [Mass/Vol] 4.2 g/dL Normal 3.3 - 5.0 gm/dL [facility] Albumin/Globulin [Mass ratio] 1.2 {ratio} Normal 1.1 - 2.2 [facility] ALP [Catalytic activity/Vol] 68 [iU]/d Normal 21 - 98 Int._Unit/ L [facility] ALT No additional P-5'-P [Catalytic activity/Vol] 12 [iU]/d Normal 6 - 46 Int._Unit/ L [facility] Anion gap [Moles/Vol] 14 mmol/L Normal 6 - 16 mEq/L [facility] AST [Catalytic activity/Vol] 18 [iU]/d Normal 5 - 43 Int._Unit/ L [facility] Bilirubin [Mass/Vol] 0.5 mg/dL Normal 0.0 - 1 .1 mg/dL [facility] Bilirubin.direct [Mass/Vol] mg/dL Normal 0.1 - 0.4 mg/dL [facility] Bilirubin.indirect [Mass or moles/Vol] Unable to Calculate mg/dL Invalid Interpretation Code 0.1 - 0.9 mg/dL [facility] Calcium [Mass/Vol] 9.4 mg/dL Normal 8.9 - 11. 1 mg/dL [facility] Chloride [Moles/Vol] 101 mmol/L Normal 101 - 1 11 mmol/L [facility] CO2 [Moles/Vol] 25 mmol/L Normal 21 - 31 mmol/L [facility] Creatinine [Mass/Vol] 0.6 mg/dL Normal 0.5 - 1.3 mg/dL [facility] GFR/1.73 sq M.predicted among blacks MDRD (S/P/Bld) [Vol rate/Area] mL/min/1.73 m2 Normal >=59mL/min /1.73 m2 [facility] Chem S GFR/1.73 sq M.predicted among non-blacks MDRD (S/P/Bld) [Vol rate/Area] mL/min/1.73 m2 Normal >=59mL/min /1.73 m2 [facility] Chem S Globulin (S) [Mass/Vol] 3.5 g/dL Normal 1.4 - 4.0 gm/dL [facility] Glucose [Mass/Vol] 182 mg/dL Normal 55 - 199 mg/dL [facility] Lactate [Mass/Vol] 1.6 mmol/L Normal 0.5 - 2.2 mmol/L [facility] Lipase [Catalytic activity/Vol] 33 U/L Normal 13 - 58 unit/L [facility] Potassium [Moles/Vol] 3.8 mmol/L Normal 3.5 - 5.3 mmol/L [facility] Protein [Mass/Vol] 7.7 g/dL Normal 6.0 - 7.8 gm/dL [facility] Sodium [Moles/Vol] 136 mmol/L Normal 135 - 145 mmol/L [facility] Urea nitrogen [Mass/Vol] 17 mg/dL Normal 5 - 21 mg/dL [facility] Urea nitrogen/Creatinine [Mass ratio] 28 mg/mg High 10 - 20 [facility] Consent for Treatmenton 07-30 Consent for Treatment [id number]#1.00CD:12 7 Normal [facility] Discharge Instructionson Discharge Instructions [id number]#[id number]:1 27 Normal [facility] ED Note-Physicianon 08-08-19 ED Note-Physician [facility] Comment on above: Result Comment: Elec tronically Signed By: Grey Putnam DO\.br\Date and Time Signed: 08/08/22 21:40 EST HEMATOLOGYOrdered By: SYSTEM SYSTEM on 08-08-2022 Basophils/100 WBC (Bld) 0.8 % Normal 0.0 - 2.0 % [facility] HemeAutoSS Basophils/Leukocytes Auto (Bld) [Pure # fraction] 0.1 E9/L Normal 0.0 - 0.2 E9/L [facility] HemeAutoSS Eosinophils/100 WBC (Bld) 6.9 % Normal 0.0 - 8.0 % [facility] HemeAutoSS Eosinophils/Leukocytes Auto (Bld) [Pure # fraction] 0.6 E9/L High 0.0 - 0.5 E9/L [facility] HemeAutoSS Lymphocytes/100 WBC (Bld) 29.5 % Normal 14.0 - 50.0 % [facility] HemeAutoSS Lymphocytes/Leukocytes Auto (Bld) [Pure # fraction] 2.4 E9/L Normal 1.0 - 4.0 E9/L [facility] HemeAutoSS Monocytes/100 WBC (Bld) 6.3 % Normal 4.0 - 14.0 % [facility] HemeAutoSS Monocytes/Leukocytes Auto (Bld) [Pure # fraction] 0.5 E9/L Normal 0.2 - 1.0 E9/L [facility] HemeAutoSS Neutrophils/100 WBC (Bld) 56.5 % Normal 36.0 - 75.0 % [facility] HemeAutoSS Neutrophils/Leukocytes Auto (Bld) [Pure # fraction] 4.5 E9/L Normal 2.0 - 7.5 E9/L [facility] HemeAutoSS HEMATOLOGYOrdered By: Mark Kate on 08-08-2022 Erythrocyte distribution width (RBC) [Ratio] 12.8 % Normal 10.9 - 14.2 % [facility] HemeAutoSS Hematocrit (Bld) [Volume fraction] 43.5 % Normal 34.0 - 46.0 % [facility] HemeAutoSS Hemoglobin (Bld) [Mass/Vol] 14.6 g/dL Normal 12.0 - 16.0 gm/dL [facility] HemeAutoSS MCH (RBC) [Entitic mass] 29.5 pg Normal 27.0 - 34.0 pg [facility] HemeAutoSS MCHC (RBC) [Mass/Vol] 33.5 g/dL Normal 31.4 - 36.0 gm/dL [facility] HemeAutoSS MCV (RBC) [Entitic vol] 88.1 fL Normal 80.0 - 100.0 fL [facility] HemeAutoSS Platelet mean volume (Bld) [Entitic vol] 7.0 fL Normal 6.4 - 10.8 fL [facility] HemeAutoSS Platelets (Bld) [#/Vol] 238.0 E9/L Normal 150.0 - 500.0 E9/L [facility] HemeAutoSS RBC (Bld) [#/Vol] 4.9 E12/L Normal 4.3 - 5.9 E12/L [facility] HemeAutoSS WBC corrected for nucl RBC Auto (Bld) [#/Vol] 8.0 E9/L Normal 4.0 - 11.0 E9/L [facility] HemeAutoSS Hep Func Panelon 08-08-2022 Bilirubin.indirect [Mass or moles/Vol] UTC Abnormal 0.1-0.9 [facility] Comment on above: Result Comment: Resu lt verified by Discern Rule. Performed result UT (Unable to Calculate) was sent as an Alpha code due the inability to calculate a valid numeric value. Performed By: #### 2 118166, 5290094, 8484006, 6329973, 0370567, 64688855 ####[facility] [address] [place] [address] Albumin [Mass/Vol] 4.2 g/dL Normal 3.3-5.0 [facility] Comment on above: Performed By: #### 2 949190, 9235832, 7851403, 9729765, 4448415, 64945592 ####[facility] [address] [place] [address] Albumin/Globulin (S) [Mass conc ratio] 1.2 Normal 1.1-2.2 [facility] Comment on above: Performed By: #### 2 211721, 7799250, 9091787, 6908570, 0730827, 90850360 ####[facility] [address] [place] [address] ALP [Catalytic activity/Vol] 68 Int._Unit/L Normal 21-98 [facility] Comment on above: Performed By: #### 2 283428, 8730203, 0840989, 1662792, 2259812, 12790483 ####[facility] [address] [place] [address] ALT No additional P-5'-P [Catalytic activity/Vol] 12 Int._Unit/L Normal 6-46 [facility] Comment on above: Performed By: #### 2 006120, 4907381, 8528857, 9939955, 7788488, 29398206 ####[facility] [address] [place] [address] AST [Catalytic activity/Vol] 18 Int._Unit/L Normal 5-43 [facility] Comment on above: Performed By: #### 2 646676, 6089610, 1028090, 9371137, 7154414, 72809499 ####[facility] [address] [place] [address] Bilirubin [Mass/Vol] 0.5 mg/dL Normal 0.0-1.1 [facility] Comment on above: Performed By: #### 2 906405, 4922501, 0996470, 0955899, 5786439, 18968149 ####[facility] [address] [place] [address] Bilirubin.direct [Mass/Vol] mg/dL Normal 0.1-0.4 [facility] Comment on above: Performed By: #### 2 582371, 5345814, 7800793, 9061120, 1486778, 27392945 ####[address] [address] Globulin (S) [Mass/Vol] 3.5 g/dL Normal 1.4-4.0 [facility] Comment on above: Performed By: #### 2 341157, 8476279, 7438784, 0592700, 5193531, 72548968 ####[facility] [address] [place] [address] Protein [Mass/Vol] 7.7 g/dL Normal 6.0-7.8 [facility] Comment on above: Performed By: #### 2 487277, 3144100, 5240142, 4205557, 5095922, 28122512 ####[facility] [address] [place] [address] Lactic Acidon 08-08-2022 Lactate [Mass/Vol] 1.6 mmol/L Normal 0.5-2.2 [facility] Comment on above: Performed By: #### 2 011005 ####[facility] [address] [place] [address] Lipase Levelon 08-08-2022 Lipase [Catalytic activity/Vol] 33 U/L Normal 13-58 [facility] Comment on above: Performed By: #### 2 993499, 3357106, 1111786, 6296652, 4283484, 87764145 ####[facility] [address] [place] [address] RAD - Preliminary Cat Scan R eporton 08-08-2022 RAD - Preliminary Cat Scan Report [id number]#[id number]:1 27 Normal [facility] UA With Cult Reflexon 2022 Bacteria LM Ql (Urine sed) TRACE Normal Trace [facility] Comment on above: Performed By: #### 2 389963, 07719876 ####[facility] [address] [place] [address] Bilirubin Ql (U) Negative Normal Negative [facility] Comment on above: Performed By: #### 2 987240, 73634974 ####[facility] [address] [place] [address] Clarity (U) SL CLOUDY Abnormal Clear [facility] Comment on above: Performed By: #### 2 404130, 02131924 ####[facility] [address] [place] [address] Color (U) YELLOW Normal Yellow [facility] Comment on above: Performed By: #### 2 252937, 94337794 ####[facility] [address] [place] [address] Epithelial cells.squamous LM.HPF (Urine sed) [#/Area] 3-4 Normal 0-2 [facility] Comment on above: Performed By: #### 2 140460, 97928984 ####[facility] [address] [place] [address] Glucose Test strip (U) [Mass/Vol] Negative Normal Negative [facility] Comment on above: Performed By: #### 2 667892, 84531240 ####[facility] [address] [place] [address] Hemoglobin Ql (U) 3+ Abnormal Negative [facility] Comment on above: Performed By: #### 2 556818, 98237614 ####[facility] [address] [place] [address] Ketones (U) [Mass/Vol] Negative Normal Negative [facility] Comment on above: Performed By: #### 2 608133, 85197899 ####[facility] [address] [place] [address] [place].plasma/[place] .RBC (Bld) [Mass ratio] 21-30 Abnormal 0-3 [facility] Comment on above: Performed By: #### 2 058126, 00085450 ####[facility] [address] [place] [address] Nitrite Ql (U) Negative Normal Negative [facility] Comment on above: Performed By: #### 2 546226, 91904372 ####[address] [address] pH (U) 7.0 [pH] Invalid Interpretation Code 5.0-9.0 [facility] Comment on above: Performed By: #### 2 448882, 11610714 ####[address] [address] Protein (U) [Mass/Vol] Negative Normal Negative [facility] Comment on above: Performed By: #### 2 348781, 29164437 ####[address] [address] Specific gravity (U) [Rel density] 1.010 Invalid Interpretation Code 1.005-1.03 0 [facility] Comment on above: Performed By: #### 2 983334, 98007587 ####[facility] [address] [place] [address] Type of Urine collection method Clean Catch Normal [facility] Comment on above: Performed By: #### 2 919545, 77901948 ####[address] [place] [address] Urobilinogen Qn (U) 0.2 {Diaz'U}/dL Normal 0.0-1.0 [facility] Comment on above: Performed By: #### 2 956690, 53494083 ####[facility] [address] [place] [address] WBC Auto Ql (U) 1+ Abnormal Negative [facility] Comment on above: Performed By: #### 2 726441, 70017064 ####[facility] [address] [place] [address] WBC LM.HPF (Urine sed) [#/Area] 6-15 Abnormal 0-5 [facility] Comment on above: Performed By: #### 2 271874, 46078481 ####[facility] [address] [place] [address] URINALYSISOrdered By: Janice Cruz on 08-08-2022 Bacteria LM Ql (Urine sed) Trace /HPF Normal Trace/HPF [facility] UA Auto SS Bilirubin Ql (U) Negative (08/08/22 8:08 PM) Normal Negative [facility] UA Auto SS Clarity (U) Slightly Cloudy *ABN* (08/08/22 8:08 PM) Invalid Interpretation Code Clear [facility] UA Auto SS Color (U) Yellow (08/08/22 8:08 PM) Normal Yellow [facility] UA Auto SS Epithelial cells.squamous LM.HPF (Urine sed) [#/Area] 3-4 /HPF Normal 0-2/HPF [facility] UA Aut o SS Glucose Test strip (U) [Mass/Vol] Negative (08/08/22 8:08 PM) Normal Negative [facility] UA Auto SS Hemoglobin Ql (U) 3+ *ABN* (08/08/22 8:08 PM) Invalid Interpretation Code Negative [facility] UA Auto SS Ketones (U) [Mass/Vol] Negative (08/08/22 8:08 PM) Normal Negative [facility] UA Auto SS [place].plasma/[place] .RBC (Bld) [Mass ratio] 21-30 /HPF Invalid Interpretation Code 0-3/HPF [facility] UA Auto SS Nitrite Ql (U) Negative (08/08/22 8:08 PM) Normal Negative [facility] UA Auto SS pH (U) 7.0 *NA* (08/08/22 8:08 PM) Invalid Interpretation Code 5.0 - 9.0 [facility] UA Auto SS Protein (U) [Mass/Vol] Negative (08/08/22 8:08 PM) Normal Negative [facility] UA Auto SS Specific gravity (U) [Rel density] 1.010 *NA* (08/08/22 8:08 PM) Invalid Interpretation Code 1.005 - 1.030 [facility] UA Auto SS UA Spec Desc Clean Catch (08/08/22 8:08 PM) Normal [facility] UA Auto SS Urobilinogen Qn (U) 0.0391347 {Diaz'U}/dL Normal 0.0 - 1.0 EU/dL [facility] UA Auto SS WBC Auto Ql (U) 1+ *ABN* (08/08/22 8:08 PM) Invalid Interpretation Code Negative [facility] UA Auto SS WBC LM.HPF (Urine sed) [#/Area] 6-15 /HPF Invalid Interpretation Code 0-5/HPF [facility] UA Auto SS eGFRon 08-08-2022 GFR/1.73 sq M.predicted among blacks MDRD (S/P/Bld) [Vol rate/Area] mL/min/{1.73_m2} Normal >=59 [facility] Comment on above: Order Comment: Order added by Discern Expert. Result Comment: eGFR is race adjusted. AA=. Performed By: #### 2 837094, 2189052, 0616303, 4475442, 6461448, 83479979 ####[facility] [address] [place] [address] GFR/1.73 sq M.predicted among non-blacks MDRD (S/P/Bld) [Vol rate/Area] mL/min/{1.73_m2} Normal >=59 [facility] Comment on above: Order Comment: Order added by Discern Expert. Result Comment: [employer] aiyana kidney disease could be indicated at eGFR's of less than 60 mL/min/1.73m2. Kidney failure is indicated at less than 15 mL/min/1.73m2. Performed By: #### 2 308274, 2318748, 3485158, 8399845, 6013794, 31176047 ####[facility] [address] [place] [address] Albumin [Mass/volume] in Ser um or PlasmaOrdered By: Vivek Ceballos on 08-02-2022 Albumin [Mass/Vol] 4.0 g/dL 3.2-5.5 [facility] Automated erythrocytes count in urine sediment (number/area)Ordered By: Vivek Ceballos on 08-02-2022 RBC Auto (Urine sed) [#/Area] Innumerable [HPF] 0-4 [facility] Automated leukocytes count i n urine sediment (number/area)Ordered By: Vivek Ceballos on 08-02-2022 WBC Auto (Urine sed) [#/Area] Innumerable [HPF] 0-4 [facility] Automated urine hyaline cast s count (number/volume)Ordered By: Vivek Ceballos on 08-02-2022 Hyaline casts Auto (U) [#/Vol] None seen [LPF] 0-1 [facility] Basic Metabolic Panelon Anion gap [Moles/Vol] 11.5 mmol/L Normal 6.0-15.0 [facility] Comment on above: Performed By: #### C BC, LIPASE, HEPATIC, BMP ####[facility] [address] [place] [address] [place] Calcium [Mass/Vol] 9.4 mg/dL Normal 8.2-10.2 [facility] Comment on above: Performed By: #### C BC, LIPASE, HEPATIC, BMP ####[facility] [address] [place] [address] [place] Chloride [Moles/Vol] 102 mmol/L Normal 95-114 [facility] Comment on above: Performed By: #### C BC, LIPASE, HEPATIC, BMP ####[facility] [address] [place] [address] [place] CO2 [Moles/Vol] 27.4 mmol/L Normal 22.0-30.0 [facility] Comment on above: Performed By: #### C BC, LIPASE, HEPATIC, BMP ####[facility] [address] [place] [address] [place] Creatinine [Mass/Vol] 0.78 mg/dL Normal 0.44-1.03 [facility] Comment on above: Performed By: #### C BC, LIPASE, HEPATIC, BMP ####[address] [place] [id number] [place] Creatinine Clr Calc Pharmacy 119.70 [facility] Comment on above: Performed By: #### C BC, LIPASE, HEPATIC, BMP ####[place] [address] [place] Estimated GFR ( Digna > 60 [facility] Comment on above: Result Comment: GFR estimated reference range: According to KDOQI guidelines, <60 ml/min/1.73m2 is sufficient to diagnose a patient with chronic kidney disease. Performed By: #### C BC, LIPASE, HEPATIC, BMP ####[place] [address] [place] Estimated GFR (Non- Am > 60 [facility] Comment on above: Performed By: #### C BC, LIPASE, HEPATIC, BMP ####[place] [id number] [place] Glucose [Mass/Vol] 159 mg/dL High 70-100 [facility] Comment on above: Result Comment: [place] om Glucose Reference Range is dependent on time and content of last meal. Glucose of more than 200 mg/dL in a nonstressed, ambulatory subject supports the diagnosis of Diabetes Mellitus. ADA recommended reference range Performed By: #### C BC, LIPASE, HEPATIC, BMP ####[place] [id number] [place] Potassium [Moles/Vol] 3.9 mmol/L Normal 3.5-5.1 [facility] Comment on above: Performed By: #### C BC, LIPASE, HEPATIC, BMP ####[place] [id number] [place] Sodium [Moles/Vol] 137 mmol/L Normal 136-146 [facility] Comment on above: Performed By: #### C BC, LIPASE, HEPATIC, BMP ####[place] [id number] [place] Urea nitrogen [Mass/Vol] 16 mg/dL Normal 9-23 [facility] Comment on above: Performed By: #### C BC, LIPASE, HEPATIC, BMP ####[facility] [place] [address] [place] Basophils Auto (Bld) [#/Vol] Ordered By: Vivek Ceballos on 08-02-2022 Basophils (Bld) [#/Vol] 0.1 10*3/uL 0.0-0.2 [facility] Basophils/100 WBC Auto (Bld) Ordered By: Vivek Ceballos on 08-02-2022 Basophils/100 WBC (Bld) 1.1 % . [facility] Bilirubin Test strip Ql (U)O rdered By: Vivek Ceballos on 08-02-2022 Bilirubin Ql (U) Negative Negative [facility] CT abdomen pelvis wo conon 0 08-02-2022 CT abdomen pelvis wo con Normal [facility] Casts typing in urine sedime nt by light microscopyOrdered By: Vivek Ceballos on 08-02-2022 Casts LM Nom (Urine sed) None seen [LPF] None Seen [facility] Color Auto (U)Ordered By: Juan Ceballos on 08-02-2022 Color (U) [place] Yellow [facility] Complete Blood Count Auto Di ffon 08-02-2022 Basophils (Bld) [#/Vol] 0.1 10*3/uL Normal 0.0-0.2 [facility] Comment on above: Result Comment: PERF ORMED BY:[address] [place], [place] [id number] MEDICAL DIRECTORNATALIA MIKE M.D. Performed By: #### C BC, LIPASE, HEPATIC, BMP ####[place] [id number] [place] [id number] [place] Basophils/100 WBC (Bld) 1.1 % Normal . [facility] Comment on above: Performed By: #### C BC, LIPASE, HEPATIC, BMP ####[place] [id number] [place] [id number] [place] Eosinophils (Bld) [#/Vol] 0.5 10*3/uL High 0.0-0.45 [facility] Comment on above: Performed By: #### C BC, LIPASE, HEPATIC, BMP ####[address] Eosinophils/100 WBC (Bld) 5.5 % Normal . [facility] Comment on above: Performed By: #### C BC, LIPASE, HEPATIC, BMP ####[address] Erythrocyte distribution width (RBC) [Ratio] 12.8 % Normal 11.9-15.3 [facility] Comment on above: Performed By: #### C BC, LIPASE, HEPATIC, BMP ####[address] Hematocrit (Bld) [Volume fraction] 40.2 % Normal 34.0-46.4 [facility] Comment on above: Performed By: #### C BC, LIPASE, HEPATIC, BMP ####[address] Hemoglobin (Bld) [Mass/Vol] 13.8 g/dL Normal 11.8-15.4 [facility] Comment on above: Performed By: #### C BC, LIPASE, HEPATIC, BMP ####[address] Lymphocytes (Bld) [#/Vol] 2.2 10*3/uL Normal 1.00-4.8 [facility] Comment on above: Performed By: #### C BC, LIPASE, HEPATIC, BMP ####[address] Lymphocytes/100 WBC (Bld) 22.7 % Normal . [facility] Comment on above: Performed By: #### C BC, LIPASE, HEPATIC, BMP ####[address] MCH (RBC) [Entitic mass] 30.2 pg Normal 24.7-34.3 [facility] Comment on above: Performed By: #### C BC, LIPASE, HEPATIC, BMP ####[place] [id number] [place] MCV (RBC) [Entitic vol] 87.8 fL Normal 80-100 [facility] Comment on above: Performed By: #### C BC, LIPASE, HEPATIC, BMP ####[address] Mean Corpuscular HGB Conc 34.4 g/dL Normal 32.0-35.0 [facility] Comment on above: Performed By: #### C BC, LIPASE, HEPATIC, BMP ####[address] Monocytes (Bld) [#/Vol] 0.6 10*3/uL Normal 0.0-0.8 [facility] Comment on above: Performed By: #### C BC, LIPASE, HEPATIC, BMP ####[address] Monocytes/100 WBC (Bld) 18.28 % Normal 0.00-20.00 [facility] Comment on above: Performed By: #### C BC, LIPASE, HEPATIC, BMP ####[address] Monocytes/100 WBC (Bld) 6.6 % Normal . [facility] Comment on above: Performed By: #### C BC, LIPASE, HEPATIC, BMP ####[address] Neutrophils (Bld) [#/Vol] 6.3 10*3/uL Normal 1.8-7.7 [facility] Comment on above: Performed By: #### C BC, LIPASE, HEPATIC, BMP ####[address] Neutrophils/100 WBC (Bld) 64.1 % Normal . [facility] Comment on above: Performed By: #### C BC, LIPASE, HEPATIC, BMP ####[address] NRBC% 0.0 /100{WBC} Normal 0-0.5 [facility] Comment on above: Performed By: #### C BC, LIPASE, HEPATIC, BMP ####[address] [address] [place] Platelet mean volume (Bld) [Entitic vol] 7.3 fL Normal 6.3-10.7 [facility] Comment on above: Performed By: #### C BC, LIPASE, HEPATIC, BMP ####[place] [id number] Platelets (Bld) [#/Vol] 239 10*3/uL Normal 150-450 [facility] Comment on above: Performed By: #### C BC, LIPASE, HEPATIC, BMP ####[address] RBC (Bld) [#/Vol] 4.58 10*6/uL Normal 3.60-5.00 [facility] Comment on above: Performed By: #### C BC, LIPASE, HEPATIC, BMP ####[address] WBC (Bld) [#/Vol] 9.8 10*3/uL Normal 3.8-11.6 [facility] Comment on above: Performed By: #### C BC, LIPASE, HEPATIC, BMP ####[address] Creatinine and Glomerular fi ltration rate.predicted panel (S/P/Bld)Ordered By: Vivek Ceballos on 08-02-2022 Creatinine [Mass/Vol] 0.78 mg/dL 0.44-1.03 [facility] Dipstick and Microscopicon 0 08-02-2022 Appearance (U) Cloudy Critically abnormal Clear [facility] Comment on above: Order Comment: Name Collection Type:: Clean-Voided Midstream Performed By: #### A DDONUAPLUS, UHCG, CUU ####[address] Bacteria,Urine None Seen Normal None Seen [facility] Comment on above: Order Comment: Name Collection Type:: Clean-Voided Midstream Performed By: #### A DDONUAPLUS, UHCG, CUU ####[address] Bilirubin,Urine Negative Normal Negative [facility] Comment on above: Order Comment: Name Collection Type:: Clean-Voided Midstream Performed By: #### A DDONUAPLUS, UHCG, CUU ####[address] [address] [place] Color (U) [place] Critically abnormal Yellow [facility] Comment on above: Order Comment: Name Collection Type:: Clean-Voided Midstream Performed By: #### A DDONUAPLUS, UHCG, CUU ####[address] [address] [place] Glucose Ql (U) Normal Normal Normal [facility] Comment on above: Order Comment: Name Collection Type:: Clean-Voided Midstream Performed By: #### A DDONUAPLUS, UHCG, CUU ####[address] [address] [place] Hyaline Casts,Urine None Seen Normal 0-1 [facility] Comment on above: Order Comment: Name Collection Type:: Clean-Voided Midstream Performed By: #### A DDONUAPLUS, UHCG, CUU ####[place] [id number] [place] Ketones Ql (U) Trace High Negative [facility] Comment on above: Order Comment: Name Collection Type:: Clean-Voided Midstream Performed By: #### A DDONUAPLUS, UHCG, CUU ####[address] [address] [place] Leukocyte esterase Test strip Ql (U) 4+ High Negative [facility] Comment on above: Order Comment: Name Collection Type:: Clean-Voided Midstream Performed By: #### A DDONUAPLUS, UHCG, CUU ####[address] [address] [place] Nitrite,Urine Negative Normal Negative [facility] Comment on above: Order Comment: Name Collection Type:: Clean-Voided Midstream Performed By: #### A DDONUAPLUS, UHCG, CUU ####[address] [place] [address] [place] Occult Blood,Urine 3+ High Negative [facility] Comment on above: Order Comment: Name Collection Type:: Clean-Voided Midstream Performed By: #### A DDONUAPLUS, UHCG, CUU ####[place] [address] [place] [address] [place] Other Casts,Urine None Seen Normal None Seen [facility] Comment on above: Order Comment: Name Collection Type:: Clean-Voided Midstream Performed By: #### A DDONUAPLUS, UHCG, CUU ####[address] [address] [place] pH (U) 5.5 [pH] Normal 5.0-9.0 [facility] Comment on above: Order Comment: Name Collection Type:: Clean-Voided Midstream Performed By: #### A DDONUAPLUS, UHCG, CUU ####[address] [address] [place] Protein (U) [Mass/Vol] 30 mg/dL High Negative [facility] Comment on above: Order Comment: Name Collection Type:: Clean-Voided Midstream Performed By: #### A DDONUAPLUS, UHCG, CUU ####[address] [address] [place] RBC,Urine Innumerable High 0-4 [facility] Comment on above: Order Comment: Name Collection Type:: Clean-Voided Midstream Performed By: #### A DDONUAPLUS, UHCG, CUU ####[address] [address] [place] Specificy [place],Urine 1.026 Normal 1.001-1.[address] [facility] Comment on above: Order Comment: Name Collection Type:: Clean-Voided Midstream Performed By: #### A DDONUAPLUS, UHCG, CUU ####[address] [address] [place] Squamous Epithelial Cell,Urine 10-19 High 0-2 [facility] Comment on above: Order Comment: Name Collection Type:: Clean-Voided Midstream Performed By: #### A DDONUAPLUS, UHCG, CUU ####[facility] Urobilinogen,Urine Normal Normal Normal [facility] Comment on above: Order Comment: Name Collection Type:: Clean-Voided Midstream Performed By: #### A DDONUAPLUS, UHCG, CUU ####[facility] WBC,Urine Innumerable High 0-4 [facility] Comment on above: Order Comment: Name Collection Type:: Clean-Voided Midstream Performed By: #### A DDONUAPLUS, UHCG, CUU ####[place] [id number] Direct bilirubin measurement Ordered By: Vivek Ceballos on 08-02-2022 Bilirubin.direct [Mass/Vol] mg/dL 0.0-0.4 [facility] Eosinophils Auto (Bld) [#/Vo l]Ordered By: Vivek Ceballos on 08-02-2022 Eosinophils (Bld) [#/Vol] 0.5 10*3/uL 0.0-0.45 [facility] Eosinophils/100 WBC Auto (Bl d)Ordered By: Vivek Ceballos on 08-02-2022 Eosinophils/100 WBC (Bld) 5.5 % . [facility] Erythrocyte distribution wid th Auto (RBC) [Ratio]Ordered By: Vivek Ceballos on 08-02-2022 Erythrocyte distribution width (RBC) [Ratio] 12.8 % 11.9-15.3 [facility] Estimated glomerular filtrat ion rate (GFR) non- AmericanOrdered By: Vivek Ceballos on 08-02-2022 GFR/1.73 sq M.predicted among non-blacks MDRD (S/P/Bld) [Vol rate/Area] > 60 mL/Min [facility] Globulin Calc (S) [Mass/Vol] Ordered By: Vivek Ceballos on 08-02-2022 Globulin (S) [Mass/Vol] 3.2 g/dL [facility] HCG ( test) IA.rapi d Ql (U)Ordered By: Vivek Ceballos on 08-02-2022 HCG ( test) Ql (U) Negative [facility] HCG,Urineon 08-02-2022 Beta HCG ( test) Ql (U) Negative Normal [facility] Comment on above: Order Comment: Name Collection Type:: Clean-Voided Midstream Result Comment: PERF ORMED BY:[address] [place], [place] [phone] MEDICAL DIRECTORNATALIA MIKE M.D. Performed By: #### A DDONUAPLUS, [facility], CUU ####[place] [address] [place] [address] [place] Hematocrit Auto (Bld) [Volum e fraction]Ordered By: Vivek Ceballos on 08-02-2022 Hematocrit (Bld) [Volume fraction] 40.2 % 34.0-46.4 [facility] Hemoglobin [Mass/volume] in BloodOrdered By: Vivek Ceballos on 08-02-2022 Hemoglobin (Bld) [Mass/Vol] 13.8 g/dL 11.8-15.4 [facility] Hepatic Panelon 08-02-2022 Albumin [Mass/Vol] 4.0 g/dL Normal 3.2-5.5 [facility] Comment on above: Performed By: #### C BC, LIPASE, HEPATIC, BMP ####[place] [address] [place] [address] [place] Albumin/Globulin [Mass ratio] 1.3 {ratio} Normal [facility] Comment on above: Performed By: #### C BC, LIPASE, HEPATIC, BMP ####[place] [address] [place] [address] [place] ALP [Catalytic activity/Vol] 67 U/L Normal 32-92 [facility] Comment on above: Performed By: #### C BC, LIPASE, HEPATIC, BMP ####[place] [address] [place] [address] [place] ALT [Catalytic activity/Vol] 12 U/L Normal 10-60 [facility] Comment on above: Performed By: #### C BC, LIPASE, HEPATIC, BMP ####[facility] [id number] [place] [id number] [place] AST [Catalytic activity/Vol] 16 U/L Normal 10-42 [facility] Comment on above: Performed By: #### C BC, LIPASE, HEPATIC, BMP ####[facility] [place] [address] [place] Bilirubin [Mass/Vol] 0.5 mg/dL Normal 0.3-1.2 [facility] Comment on above: Performed By: #### C BC, LIPASE, HEPATIC, BMP ####[place] [address] [place] [phone] [place] Bilirubin,Indirect Not performed Normal [facility] Comment on above: Performed By: #### C BC, LIPASE, HEPATIC, BMP ####[facility] [place] [id number] [place] Bilirubin.indirect [Mass/Vol] mg/dL Normal 0.0-0.4 [facility] Comment on above: Performed By: #### C BC, LIPASE, HEPATIC, BMP ####[place] [address] [place] [phone] [place] Globulin (S) [Mass/Vol] 3.2 g/dL Normal [facility] Comment on above: Performed By: #### C BC, LIPASE, HEPATIC, BMP ####[place] [address] [place] [phone] [place] Protein [Mass/Vol] 7.2 g/dL Normal 6.1-7.9 [facility] Comment on above: Performed By: #### C BC, LIPASE, HEPATIC, BMP ####[place] [address] [place] [phone] [place] Ketones Auto test strip (U) [Mass/Vol]Ordered By: Vivek Ceballos on 08-02-2022 Ketones (U) [Mass/Vol] Trace Negative [facility] - Chemistry and C hemistry - challengeOrdered By: Vivek Ceballos on 08-02-2022 Lipase [Catalytic activity/Vol] 37.0 U/L 22-51 [facility] Leukocytes [#/volume] correc suzanne for nucleated erythrocytes in Blood by Automated counOrdered By: Vivek Ceballos on 08-02-2022 WBC corrected for nucl RBC Auto (Bld) [#/Vol] 9.8 10*3/uL 3.8-11.6 [facility] Lipaseon 08-02-2022 Lipase [Catalytic activity/Vol] 37.0 U/L Normal 22-51 [facility] Comment on above: Result Comment: PERF ORMED BY:[address] [place], [place] [phone] MEDICAL DIRECTORNATALIA MIKE M.D. Performed By: #### C BC, LIPASE, HEPATIC, BMP ####[facility] [place] [address] [place] Lymphocytes Auto (Bld) [#/Vo l]Ordered By: Vivek Ceballos on 08-02-2022 Lymphocytes (Bld) [#/Vol] 2.2 10*3/uL 1.00-4.8 [facility] Lymphocytes/100 WBC Auto (Bl d)Ordered By: Vivek Ceballos on 08-02-2022 Lymphocytes/100 WBC (Bld) 22.7 % . [facility] MCH Auto (RBC) [Entitic mass ]Ordered By: Vivek Ceballos on 08-02-2022 MCH (RBC) [Entitic mass] 30.2 pg 24.7-34.3 [facility] MCHC Auto (RBC) [Mass/Vol]Or dered By: Vivek Ceballos on 08-02-2022 MCHC (RBC) [Mass/Vol] 34.4 g/dL 32.0-35.0 [facility] MCV Auto (RBC) [Entitic vol] Ordered By: Vivek Ceballos on 08-02-2022 MCV (RBC) [Entitic vol] 87.8 fL 80-100 [facility] Monocyte distribution width [Entitic volume] in Blood by AutomatedOrdered By: Vivek Ceballos on 08-02-2022 Monocyte distribution width Auto (Bld) [Entitic vol] 18.28 % 0.00-20.00 [facility] Monocytes Auto (Bld) [#/Vol] Ordered By: Vivek Ceballos on 08-02-2022 Monocytes (Bld) [#/Vol] 0.6 10*3/uL 0.0-0.8 [facility] Monocytes/100 WBC Auto (Bld) Ordered By: Vivek Ceballos on 08-02-2022 Monocytes/100 WBC (Bld) 6.6 % . [facility] Neutrophils Auto (Bld) [#/Vo l]Ordered By: Vivek Ceballos on 08-02-2022 Neutrophils (Bld) [#/Vol] 6.3 10*3/uL 1.8-7.7 [facility] Neutrophils/100 WBC Auto (Bl d)Ordered By: Vivek Ceballos on 08-02-2022 Neutrophils/100 WBC (Bld) 64.1 % . [facility] Nitrite Test strip Ql (U)Ord ered By: Vivek Ceballos on 08-02-2022 Nitrite Ql (U) Negative Negative [facility] No Panel InformationOrdered By: Vivek Ceballos on 08-02-2022 Estimated GFR () > 60 mL/Min [facility] Comment on above: GFR estimated refere nce range: According to KDOQI guidelines, <60 ml/min/1.73m2 is sufficient to diagnose a patient with chronic kidney disease. Pharmacy Creatinine Clearance (Chem 119.70 [facility] > 60 mL/Min [facility] 37.0 U/L 22-51 [facility] 119.70 [facility] Nucleated erythrocytes [Pres ence] in Blood by Automated countOrdered By: Vivek Ceballos on 08-02-2022 Nucleated RBC Auto Ql (Bld) 0.0 /100{WBC} 0-0.5 [facility] Platelet mean volume Auto (B ld) [Entitic vol]Ordered By: Vivek Ceballos on 08-02-2022 Platelet mean volume (Bld) [Entitic vol] 7.3 fL 6.3-10.7 [facility] Platelets Auto (Bld) [#/Vol] Ordered By: Vivek Ceballos on 08-02-2022 Platelets (Bld) [#/Vol] 239 10*3/uL 150-450 [facility] Protein Auto test strip (U) [Mass/Vol]Ordered By: Vivek Ceballos on 08-02-2022 Protein (U) [Mass/Vol] 30 mg/dL [facility] Protein [Mass/volume] in Ser um or PlasmaOrdered By: Vivek Ceballos on 08-02-2022 Protein [Mass/Vol] 7.2 g/dL 6.1-7.9 [facility] RBC Auto (Bld) [#/Vol]Ordere d By: Vivek Ceballos on 08-02-2022 RBC (Bld) [#/Vol] 4.58 10*6/uL 3.60-5.00 [facility] Serum or plasma alanine slaughter otransferase measurement without P-5'-P (enzymatic activiOrdered By: Vivek Ceballos on 08-02-2022 ALT No additional P-5'-P [Catalytic activity/Vol] 12 U/L 10-60 [facility] Serum or plasma albumin/glob ulin mass ratioOrdered By: Vivek Ceballos on 08-02-2022 Albumin/Globulin [Mass ratio] 1.3 {ratio} [facility] Serum or plasma alkaline shelby sphatase measurement (enzymatic activity/volume)Ordered By: Vivek Ceballos on 08-02-2022 ALP [Catalytic activity/Vol] 67 U/L 32-92 [facility] Serum or plasma anion gap de terminationOrdered By: Vivek Ceballos on 08-02-2022 Anion gap [Moles/Vol] 11.5 mmol/L 6.0-15.0 [facility] Serum or plasma aspartate am inotransferase measurement (enzymatic activity/volume)Ordered By: Vivek Ceballos on 08-02-2022 AST [Catalytic activity/Vol] 16 U/L 10-42 [facility] Serum or plasma calcium jesse urement (mass/volume)Ordered By: Vivek Ceballos on 08-02-2022 Calcium [Mass/Vol] 9.4 mg/dL 8.2-10.2 [facility] Serum or plasma chloride marcia surement (moles/volume)Ordered By: Vivek Ceballos on 08-02-2022 Chloride [Moles/Vol] 102 mmol/L 95-114 [facility] Serum or plasma creatinine m easurement with calculation of estimated glomerular filtrOrdered By: Vivek Ceballos on 08-02-2022 Creatinine and Glomerular filtration rate.predicted panel (S/P/Bld) 0.78 mg/dL 0.44-1.03 [facility] Serum or plasma glucose jesse urement (mass/volume)Ordered By: Vivek Ceballos on 08-02-2022 Glucose [Mass/Vol] 159 mg/dL 70-100 [facility] Comment on above: ADA recommended refe rence rangeRandom Glucose Reference Range is dependent on time and content of last meal. Glucose of more than 200 mg/dL in a nonstressed, ambulatory subject supports the diagnosis of Diabetes Mellitus. Serum or plasma non-glucuron idated bilirubin measurement (mass/volume)Ordered By: Vivek Ceballos on 08-02-2022 Bilirubin.indirect [Mass/Vol] TNP [facility] Comment on above: Test not performed Serum or plasma potassium me asurement (moles/volume)Ordered By: Vivek Ceballos on 08-02-2022 Potassium [Moles/Vol] 3.9 mmol/L 3.5-5.1 [facility] Serum or plasma sodium measu rement (moles/volume)Ordered By: iVvek Ceballos on 08-02-2022 Sodium [Moles/Vol] 137 mmol/L 136-146 [facility] Serum or plasma total biliru bin measurement (mass/volume)Ordered By: Vivek Ceabllos on 08-02-2022 Bilirubin [Mass/Vol] 0.5 mg/dL 0.3-1.2 [facility] Serum or plasma total carbon dioxide measurement (moles/volume)Ordered By: Vivek Ceballos on 08-02-2022 CO2 [Moles/Vol] 27.4 mmol/L 22.0-30.0 [facility] Serum or plasma urea nitroge n measurement (mass/volume)Ordered By: Vivek Ceballos on 08-02-2022 Urea nitrogen [Mass/Vol] 16 mg/dL 9-23 [facility] Specific gravity Auto test s trip (U) [Rel density]Ordered By: Vivek Ceballos on 08-02-2022 Specific gravity (U) [Rel density] 1.026 1.001-1.[address] [facility] Squamous epithelial cells de tection in urine sediment by light microscopyOrdered By: Vivek Ceballos on 08-02-2022 Epithelial cells.squamous LM Ql (Urine sed) 10-19 [HPF] 0-2 [facility] Urine Cultureon 08-02-2022 Bacteria identified Cx Nom (U) Normal [facility] Comment on above: Performed By: #### A DDONUAPLUS, CG, CUU ####[facility] [id number] [place] [id number] [place] Urine bacteria detection by automated methodOrdered By: Vivek Ceballos on 08-02-2022 Bacteria Auto Ql (U) None seen None Seen [facility] Urine clarity by refractomet ry automatedOrdered By: Vivek Ceballos on 08-02-2022 Clarity Refractometry automated (U) Cloudy Clear [facility] Urine culture routineOrdered By: Vivek Ceballos on 08-02-2022 Bacteria identified Cx Nom (U) [address] [facility] Urine glucose measurement by automated test strip (mass/volume)Ordered By: Vivek Ceballos on 08-02-2022 Glucose Auto test strip (U) [Mass/Vol] Normal mg/dL Normal [facility] Urine hemoglobin detection b y automated test stripOrdered By: Vivek Ceballos on 08-02-2022 Hemoglobin Auto test strip Ql (U) 3+ Negative [facility] Urine leukocyte esterase det ection by automated test stripOrdered By: Vivek Ceballos on 08-02-2022 Leukocyte esterase Auto test strip Ql (U) 4+ Negative [facility] Urobilinogen Auto test strip (U) [Mass/Vol]Ordered By: Vivek Ceballos on 08-02-2022 Urobilinogen (U) [Mass/Vol] Normal mg/dL Normal [facility] WBC Auto (Bld) [#/Vol]Ordere d By: Vivek Ceballos on 08-02-2022 WBC (Bld) [#/Vol] 9.8 10*3/uL 3.8-11.6 [facility] pH Auto test strip (U)Ordere d By: Vivek Ceballos on 08-02-2022 pH (U) 5.5 [pH] 5.0-9.0 [facility] Urine culture routineOrdered By: Vivek Ceballos on 08-01-2022 Bacteria identified Cx Nom (U) [address] [facility] CBC AND DIFFERENTIALon 07-22 % AUTOMATED IMMATURE GRAN 0.2 % Normal 0.0 - 0.9 [facility] Comment on above: Result Comment: Chary ture Granulocyte Count (IG) includes promyelocytes, myelocytes and metamyelocytes but does not include bands. Percent differential counts (%) should be interpreted in the context of the absolute cell counts (cells/L). Performed By: #### C BCDF #### [address] [id number] Basophils (Bld) [#/Vol] 0.09 10*3/uL Normal 0.00 - 0.10 [facility] Comment on above: Performed By: #### C BCDF #### [address] [id number] Basophils/100 WBC (Bld) 0.8 % Normal 0.0 - 2.0 [facility] Comment on above: Performed By: #### C BCDF #### [address] [id number] Eosinophils (Bld) [#/Vol] 0.60 10*3/uL Normal 0.00 - 0.70 [facility] Comment on above: Performed By: #### C BCDF #### [address] [id number] Eosinophils/100 WBC (Bld) 5.5 % Normal 0.0 - 6.0 [facility] Comment on above: Performed By: #### C BCDF #### [address] [id number] Erythrocyte distribution width (RBC) [Ratio] 12.0 % Normal 11.5 - 14.5 [facility] Comment on above: Performed By: #### C BCDF #### [address] [id number] Hematocrit (Bld) [Volume fraction] 42.6 % Normal 36.0 - 46.0 [facility] Comment on above: Performed By: #### C BCDF #### [address] [id number] Hemoglobin (Bld) [Mass/Vol] 14.9 g/dL Normal 12.0 - 16.0 [facility] Comment on above: Performed By: #### C BCDF #### [address] [id number] Lymphocytes (Bld) [#/Vol] 3.83 10*3/uL Normal 1.20 - 4.80 [facility] Comment on above: Performed By: #### C BCDF #### [address] [id number] Lymphocytes/100 WBC (Bld) 35.1 % Normal 13.0 - 44.0 [facility] Comment on above: Performed By: #### C BCDF #### [address] [id number] MCHC (RBC) [Mass/Vol] 35.0 g/dL Normal 32.0 - 36.0 [facility] Comment on above: Performed By: #### C BCDF #### [address] [id number] MCV (RBC) [Entitic vol] 88 fL Normal 80 - 100 [facility] Comment on above: Performed By: #### C BCDF #### [address] [id number] Monocytes (Bld) [#/Vol] 0.68 10*3/uL Normal 0.10 - 1.00 [facility] Comment on above: Performed By: #### C BCDF #### [address] [id number] Monocytes/100 WBC (Bld) 6.2 % Normal 2.0 - 10.0 [facility] Comment on above: Performed By: #### C BCDF #### [address] [id number] Neutrophils (Bld) [#/Vol] 5.70 10*3/uL Normal 1.20 - 7.70 [facility] Comment on above: Performed By: #### C BCDF #### [address] [id number] Neutrophils/100 WBC (Bld) 52.2 % Normal 40.0 - 80.0 [facility] Comment on above: Performed By: #### C BCDF #### [address] [id number] Platelets (Bld) [#/Vol] 272 10*3/uL Normal 150 - 450 [facility] Comment on above: Performed By: #### C BCDF #### [address] [id number] RBC 4.85 x10E12/L Normal 4.00 - 5.20 [facility] Comment on above: Performed By: #### C BCDF #### [address] [id number] WBC (Bld) [#/Vol] 10.9 10*3/uL Normal 4.4 - 11.3 [facility] Comment on above: Performed By: #### C BCDF #### [address] [id number] COMPREHENSIVE PANELon 2022 Albumin [Mass/Vol] 4.5 g/dL Normal 3.4 - 5.0 [facility] Comment on above: Order Comment: Saud d- RB to Winsome Ko, 07/22/2022 00:23 Performed By: #### C MP #### [address] [id number] ALP [Catalytic activity/Vol] 79 U/L Normal 33 - 110 [facility] Comment on above: Order Comment: Sharp d- RB to Winsome Ko, 07/22/2022 00:23 Performed By: #### C MP #### [address] [id number] ALT [Catalytic activity/Vol] 10 U/L Normal 7 - 45 [facility] Comment on above: Order Comment: Saud d- RB to Winsome Ko, 07/22/2022 00:23 Result Comment: Shaniqua ents treated with Sulfasalazine may generate falsely decreased results for ALT. Performed By: #### C MP #### [address] [id number] Anion gap [Moles/Vol] 13 mmol/L Normal 10 - 20 [facility] Comment on above: Order Comment: Sharp d- RB to Winsome Ko, 07/22/2022 00:23 Performed By: #### C MP #### [address] [id number] AST [Catalytic activity/Vol] 10 U/L Normal 9 - 39 [facility] Comment on above: Order Comment: Sharp d- RB to Winsome Almanzarico, 07/22/2022 00:23 Performed By: #### C MP #### [address] [id number] Bilirubin [Mass/Vol] 0.3 mg/dL Normal 0.0 - 1.2 [facility] Comment on above: Order Comment: Sharp d- RB to Winsome Calvillorivas, 07/22/2022 00:23 Performed By: #### C MP #### [address] [id number] Calcium [Mass/Vol] 10.0 mg/dL Normal 8.6 - 10.3 [facility] Comment on above: Order Comment: Sharp d- RB to Winsome Calvillorivas, 07/22/2022 00:23 Performed By: #### C MP #### [address] [id number] Chloride [Moles/Vol] 101 mmol/L Normal 98 - 107 [facility] Comment on above: Order Comment: Sharp d- RB to Winsome Calvillorivas, 07/22/2022 00:23 Performed By: #### C MP #### [address] [id number] Creatinine [Mass/Vol] 0.64 mg/dL Normal 0.50 - 1.05 [facility] Comment on above: Order Comment: Sharp d- RB to Winsome Maikel, 07/22/2022 00:23 Performed By: #### C MP #### [address] [id number] eGFR FEMALE >90 Normal >90 [facility] Comment on above: Order Comment: Saud d- RB to Winsome Maikel, 07/22/2022 00:23 Result Comment: CALC ULATIONS OF ESTIMATED GFR ARE PERFORMED USING THE 2020 CKD-EPI STUDY REFIT EQUATION WITHOUT THE RACE VARIABLE FOR THE IDMS-TRACEABLE CREATININE METHODS. https://jasn.asnjournals.org/content/early//ASN.84330 69871 Performed By: #### C MP #### [address] [id number] Glucose [Mass/Vol] 47 mg/dL Critically low 74 - 99 [facility] Comment on above: Order Comment: Sharp d- RB to Winsome Ko, 07/22/2022 00:23 Result Comment: Call ed- RB to Winsome Ko, 07/22/2022 00:23 Performed By: #### C MP #### [address] [id number] HCO3 (Bld) [Moles/Vol] 30 mmol/L Normal 21 - 32 [facility] Comment on above: Order Comment: Sharp d- RB to Winsome Ko, 07/22/2022 00:23 Performed By: #### C MP #### [address] [id number] Potassium [Moles/Vol] 2.9 mmol/L Critically low 3.5 - 5.3 [facility] Comment on above: Order Comment: Sharp d- RB to Winsome Ko, 07/22/2022 00:23 Result Comment: Call ed- RB to Winsome Ko, 07/22/2022 00:23 Performed By: #### C MP #### [address] [id number] Protein [Mass/Vol] 8.1 g/dL Normal 6.4 - 8.2 [facility] Comment on above: Order Comment: Sharp d- RB to Winsome Marcumfletcher, 07/22/2022 00:23 Performed By: #### C MP #### [address] [id number] Sodium [Moles/Vol] 141 mmol/L Normal 136 - 145 [facility] Comment on above: Order Comment: Sharp d- RB to Winsome Calvillorivas, 07/22/2022 00:23 Performed By: #### C MP #### [address] [id number] Urea nitrogen [Mass/Vol] 19 mg/dL Normal 6 - 23 [facility] Comment on above: Order Comment: Sharp d- RB to Winsome Marcumfletcher, 07/22/2022 00:23 Performed By: #### C MP #### [address] [id number] EMR ADDONon 07-22-2022 ADDON CONFIRMATION REQUEST REC'D Normal [facility] Comment on above: Performed By: #### C BCDF #### [address] [id number] LIPASEon 07-22-2022 Lipase [Catalytic activity/Vol] 16 U/L Normal 9 - 82 [facility] Comment on above: Result Comment: Angelique puncture immediately after or during the administration of Metamizole may lead to falsely low results. Testing should be performed immediately prior to Metamizole dosing. Y-jkygtc-i-benzoquinone imine (metabolite of Acetaminophen) will generate erroneously low results in samples for patients that have taken toxic doses of acetaminophen. Performed By: #### C BCDF #### [address] [id number] Provider Note - ED v3on 06-30 Provider Note - ED v3 Provider Note: Chart Review: ED NOTES ED NOTES: 47-year-old female with history of type 2 diabetes, kidney stones presenting to the ED today with right flank pain that started a couple hours ago. There was no fall or injury and patient states that this feels like when she has had a kidney stone previously. The pain is in the right side of her back and moves into her right flank and she has had nausea and vomiting. She denies any painful urination but her urine did look dark and she was concerned there was blood in the urine. She denies concern for and has not had any vaginal bleeding or discharge. She denies diarrhea or constipation, dark or bloody stools. She has not had a fever, chest pain or shortness of breath, cough or hemoptysis. She states that she normally takes gabapentin and ibuprofen due to a shoulder/cervical issue and she did take this earlier today without relief of pain. She denies IV drug use. No further complaints at this time. HISTORY OF PRESENTING ILLNESS GISEL is a 47 year old Female and was seen by me at 21-Jul-2022 21:35 for a chief complaint of flank pain (rt flank pain for a couple hrs. hx of kidney stones.)(1). The historian is the patient. Triage Information: Most recent Vital Sign Value Date Temp (F): 98.6 07-21-2022 20:47 Temp (C): 37 07-21-2022 20:47 Heart Rate (beats/min): 118 07-21-2022 20:47 Respirations (breaths/min): 18 07-21-2022 20:47 SpO2 (%): 99 07-21-2022 20:47 BP Systolic (mm Hg): 148 07-21-2022 20:47 BP Diastolic (mm Hg): 98 07-21-2022 20:47 PAST MEDICAL HISTORY ALLERGIES/INTOLERANCES: Allergy Allergen: Toradol Type: Drug Reaction: Hives/Urticaria Allergen: Nubain Type: Drug Reaction: Hives/Urticaria Allergen: morphine Type: Drug Reaction: Hives/Urticaria Allergen: fentanyl Type: Drug Reaction: Hives/Urticaria Allergen: Cipro Type: Drug Reaction: Hives/Urticaria Allergen: Zithromax Type: Drug Reaction: Hives/Urticaria Allergen: Zofran Type: Drug Reaction: Unknown Allergen: aspirin Type: Drug Reaction: Unknown Allergen: Demerol HCl Type: Drug Reaction: Hives/Urticaria Allergen: penicillin Type: Drug Reaction: Hives/Urticaria HEALTH HISTORY: Medical History Name:Calculus of right kidney Code:N20.0 Name:Gastroesophageal reflux disease Code:K21.9 Name:Type 2 diabetes mellitus Code:E11.9 Name:HLD (hyperlipidemia) Code:E78.5 Name:UTI (urinary tract infection) Code:N39.0 OUTPATIENT MEDICATIONS: Home Medications Review Status for Reconciliation: Not Done Med Status: Incomplete Medication History Drug Name: HumaLOG 100 units/mL injectable solution Instructions: 40 unit(s) injectable 3 times a day Drug Name: metFORMIN 500 mg oral tablet Instructions: 1 tab(s) orally 2 times a day Drug Name: ondansetron 4 mg oral tablet, disintegrating Instructions: 1 tab(s) orally 4 times a day, As Needed Drug Name: metoprolol tartrate 25 mg oral tablet Instructions: 1 tab(s) orally 2 times a day - instructed to take on morning of procedure Drug Name: Tresiba FlexTouch 100 units/mL subcutaneous solution Instructions: 100 unit(s) subcutaneous once a day Drug Name: Crestor 20 mg oral tablet Instructions: 1 tab(s) orally once a day Drug Name: promethazine 25 mg oral tablet Instructions: 1 tab(s) orally every 6 hours, As Needed Drug Name: lidocaine 4% topical kit Instructions: Apply topically to affected area once a day Drug Name: promethazine 25 mg oral tablet Instructions: 1 tab(s) orally 3 times a day, As Needed Drug Name: omeprazole 20 mg oral delayed release capsule Instructions: 1 cap(s) orally once a day Drug Name: oxycodone-acetaminophen 5 mg-325 mg oral tablet Instructions: 2 cap(s) orally 4 times a day Drug Name: promethazine 12.5 mg oral tablet Instructions: 1 tab(s) orally every 6 hours, As Needed Drug Name: oxycodone-acetaminophen 5 mg-325 mg oral tablet Instructions: 1 tab(s) orally 4 times a day Drug Name: PULSE OXIMETER Instructions: Apply topically to affected area once a day PLEASE DISPENSE ONE DEVICE Drug Name: Vistaril 50 mg oral capsule Instructions: orally 3 times a day Drug Name: promethazine 25 mg oral tablet Instructions: 1 tab(s) orally every 6 hours Drug Name: Protonix 40 mg oral granule, delayed release Instructions: 1 each orally once a day Drug Name: Mylanta Maximum Strength oral suspension Instructions: 10 milliliter(s) orally 4 times a day (before meals and at bedtime), As Needed for gastritis Drug Name: Macrobid 100 mg oral capsule Instructions: 1 cap(s) orally 2 times a day Drug Name: Macrodantin 100 mg oral capsule Instructions: 1 cap(s) orally 2 times a day Drug Name: Pyridium 200 mg oral tablet Instructions: 1 tab(s) orally 3 times a day Drug Name: promethazine 12.5 mg oral tablet Instructions: 1 tab(s) orally every 8 hours, A (more content not included)... Normal [facility] UA MICROSCOPICon 07-22-2022 Mucus Ql (Urine sed) 1+ /LPF Normal [facility] Comment on above: Performed By: #### U AMIC #### [address] [id number] RBC (U) [#/Vol] /uL Abnormal 0-5 [facility] Comment on above: Performed By: #### U AMIC #### [address] [id number] SQUAMOUS EPITH. CELLS 15 /HPF Normal [facility] Comment on above: Performed By: #### U AMIC #### [address] [id number] WBC 88 /HPF Abnormal 0-5 [facility] Comment on above: Performed By: #### U AMIC #### [address] [id number] URINALYSISon 07-22-2022 Glucose Ql (U) 100 mg/dL Abnormal NEGATIVE [facility] Comment on above: Result Comment: Louisa ified by Clinitek Performed By: #### U A #### [address] [id number] HCG,URINEon 07-21-2022 Beta HCG ( test) Ql (U) Negative Normal Negative [facility] Comment on above: Performed By: #### H CGU #### [address] [id number] Triage - EDon 07-21-2022 Triage - ED Quick Triage: Are You no Are You Currently Breastfeedingno Chart Review: ARRIVAL INFORMATION Mode of Arrival: private vehicle CHIEF COMPLAINT GISEL CARLTON is a Female patient with a chief complaint of flank pain (rt flank pain for a couple hrs. hx of kidney stones.). Triage Date/Time: 21-Jul-2022 20:47 TRUDY: 3 Pain Rating (0-10): 8 = Severe Pain location: rt flank Vital Signs: Temperature: 98.6F ( 37.0C) taken temporal Blood Pressure: 148/98 Mean: Heart Rate: 118 Respiratory Rate: 18 Pulse Oximetry: 99% on room air, no respiratory support. Height: 5 feet 7.00 inches. 170.1 CM Weight: 238.0 pounds. Calculated 108.0 kg. (stated) Calculated BMI (kg/m2): 37.326 Calculated BSA (m2) 2.26 Patient has homicidal thoughts: no Risk Screens Suicide Risk Screen In the Past Month: Have you wished you were or wished you could go to sleep and not wake up no In the Past Month: Have you had any actual thoughts of killing yourself no In Your Lifetime: Have you ever done anything, started to do anything, or prepared to do anything to end your life no Sifuentes Fall Scale Screening Has the patient fallen before (or is the patient in the ED as a result of a fall) has not had a fall Does the patient have an impaired gait does not have impaired gait Is the patient cognitively impaired not cognitively impaired Interventions: Sifuentes Fall Interventions: LOW INTERVENTIONS: *patient oriented to surroundings and call system, * patient/family falls education completed and documented, *patients fall status communicated during bedside handoff, *whiteboard updated, *mode of toileting discussed with patient, *bed in low position with brakes locked, *call light in reach, * non-skid footwear TRAVEL HISTORY Travel History Coronavirus Screening: no exposure or symptoms Travel Exposure History: NO travel to International locations in the past 30 days PAIN Pain Scale Used: SERGIO Pain Rating (0-10): 8 = Severe Past Medical History: Past Medical History Reviewedyes tonsils and adenoids remved: Past Surgical History, Active carpel tunner release: Past Surgical History, Active Hernia repair: Past Surgical History, Active Cholecystectomy: Past Surgical History, Active leg surgery: Past Surgical History, Active Hysterectomy: Past Surgical History, Active COVID: Past Medical History, Active kidney infection: Past Medical History, Active kidney stones: Past Medical History, Active Hyperlipidemia: Past Medical History, Active Diabetes: Past Medical History, Active GERD: Past Medical History, Active Electronic Signatures: Adrian Lewis) (Signed 21-Jul-2022 20:50) Entered: Risk Screens, Pain, Travel History, Chart Review, Scores, Past Medical History Authored: Quick Triage, Risk Screens, Pain, Travel History, Chart Review, Scores, Past Medical History Last Updated: 21-Jul-2022 20:50 by Adrian Lewis (SHALOM) Normal [facility] URINALYSISon 07-21-2022 Appearance (U) HAZY Normal CLEAR [facility] Comment on above: Performed By: #### U A #### [address] [id number] Bilirubin Ql (U) Negative Normal NEGATIVE [facility] Comment on above: Performed By: #### U A #### [address] [id number] Color (U) YELLOW Normal STRAW,YELL OW [facility] Comment on above: Performed By: #### U A #### [address] [id number] Hemoglobin Ql (U) LARGE (3+) Abnormal NEGATIVE [facility] Comment on above: Performed By: #### U A #### [address] [id number] Ketones Ql (U) Negative Normal NEGATIVE [facility] Comment on above: Performed By: #### U A #### [address] [id number] Leukocyte esterase Test strip Ql (U) LARGE (3+) Abnormal NEGATIVE [facility] Comment on above: Performed By: #### U A #### [address] [id number] Nitrite Ql (U) Negative Normal NEGATIVE [facility] Comment on above: Performed By: #### U A #### [address] [id number] pH (U) 5.0 [pH] Normal 5.0 - 8.0 [facility] Comment on above: Performed By: #### U A #### [address] [id number] Protein Ql (U) 30 (1+) Abnormal NEGATIVE [facility] Comment on above: Performed By: #### U A #### [address] [id number] Specific gravity (U) [Rel density] 1.028 Normal 1.005 - 1.035 [facility] Comment on above: Performed By: #### U A #### [address] [id number] Urobilinogen (U) [Mass/Vol] mg/dL Normal 0.0 - 1.9 [facility] Comment on above: Performed By: #### U A #### [address] [id number] URINE CULTURE,BACTERIALon URINE CULTURE,BACTERIAL PATIENT: GISEL CARLTON LOCATION: [facility]#: [id number] : 75 AGE: SEX: F ORDERED BY: SENA DING SOURCE: URINE COLLECTED: 07/21/22 21:53 ANTIBIOTICS AT RASHEEDA.: RECEIVED : 07/22/22 09:04 SITE: Unspecified R E S U L T S URINE CULTURE,BACTERIAL FINAL 07/23/22 08:27 NO SIGNIFICANT GROWTH. Normal [facility] Comment on above: Performed By: #### U RINC #### [facility] [address] [place] [address] C Urineon 07-19-2022 Bacteria identified Cx Nom (U) Normal [facility] Comment on above: Performed By: #### 2 752535, [id number], [id number] ####[facility] [address] [place] [address] Coding Summary.on 07-18-2022 Coding Summary. Normal [facility] Discharge Instructionson Discharge Instructions [id number]:12 [id number] Normal [facility] ED Clinical Summaryon 2022 ED Clinical Summary Normal Dilma michael [facility] ED Note-Physicianon 07-18-19 ED Note-Physician Normal [facility] Comment on above: Result Comment: Elec tronically Signed By: Agatha Stinson M.D.\Date and Time Signed: 07/17/22 23:18 EST ED Patient Education Noteon 07-18-2022 ED Patient Education Note Normal [facility] ED Patient Summaryon 023 ED Patient Summary Normal [facility] US Renalon 07-18-2022 US Renal Normal [facility] Auto Diffon 07-17-2022 Basophils/100 WBC (Bld) 0.9 % Normal 0.0-2.0 [facility] Comment on above: Order Comment: Order Added by Discern Expert. Performed By: #### 2 364285, 2635756, 29784841, 7004143, 3388547 ####[facility] [address] [place] [address] Basophils/Leukocytes Auto (Bld) [Pure # fraction] 0.1 E9/L Normal 0.0-0.2 [facility] Comment on above: Order Comment: Order Added by Discern Expert. Performed By: #### 2 724523, 4053623, 63542865, 0193683, 1848451 ####[facility] [address] [place] [address] Eosinophils/100 WBC (Bld) 4.9 % Normal 0.0-8.0 [facility] Comment on above: Order Comment: Order Added by Discern Expert. Performed By: #### 2 475252, 8479600, 61538615, 8577673, 8833261 ####[facility] [address] [place] [address] Eosinophils/Leukocytes Auto (Bld) [Pure # fraction] 0.5 E9/L Normal 0.0-0.5 [facility] Comment on above: Order Comment: Order Added by Discern Expert. Performed By: #### 2 471133, 7349576, 87145328, 3890518, 8383777 ####[facility] [address] [place] [address] Lymphocytes/100 WBC (Bld) 24.3 % Normal 14.0-50.0 [facility] Comment on above: Order Comment: Order Added by Discern Expert. Performed By: #### 2 812333, 8708086, 29485683, 0166429, 8296429 ####[facility] [address] [place] [address] Lymphocytes/Leukocytes Auto (Bld) [Pure # fraction] 2.3 E9/L Normal 1.0-4.0 [facility] Comment on above: Order Comment: Order Added by Ariel Expert. Performed By: #### 2 439889, 0932595, 97256731, 7171778, 4772443 ####[address] [place] [address] Monocytes/100 WBC (Bld) 6.1 % Normal 4.0-14.0 [facility] Comment on above: Order Comment: Order Added by Ariel Expert. Performed By: #### 2 881958, 2054038, 47436200, 5797433, 1773381 ####[address] [place] [address] Monocytes/Leukocytes Auto (Bld) [Pure # fraction] 0.6 E9/L Normal 0.2-1.0 [facility] Comment on above: Order Comment: Order Added by Ariel Expert. Performed By: #### 2 457537, 9961717, 52506863, 9165260, 7769273 ####[address] [place] [address] Neutrophils/100 WBC (Bld) 63.8 % Normal 36.0-75.0 [facility] Comment on above: Order Comment: Order Added by Ariel Expert. Performed By: #### 2 262069, 2077025, 97316974, 7929331, 2421938 ####[facility] [address] [place] [address] Neutrophils/Leukocytes Auto (Bld) [Pure # fraction] 6.0 E9/L Normal 2.0-7.5 [facility] Comment on above: Order Comment: Order Added by Discern Expert. Performed By: #### 2 651679, 5967524, 26798559, 5340553, 6513842 ####[facility] [address] [place] [address] BMPon 07-17-2022 Creatinine [Mass/Vol] 0.6 mg/dL Normal 0.5-1.3 [facility] Comment on above: Performed By: #### 2 682991, 5519044, 33706861, 5958245, 8715623 ####[facility] [address] [place] [address] Urea nitrogen [Mass/Vol] 15 mg/dL Normal 5-21 [facility] Comment on above: Performed By: #### 2 578338, 9754751, 98361349, 7269984, 3063299 ####[facility] [address] [place] [address] Urea nitrogen/Creatinine [Mass ratio] 25 No Units High 10-20 [facility] Comment on above: Performed By: #### 2 588422, 4977996, 01206247, 3527759, 4667963 ####[facility] [address] [place] [address] Anion gap [Moles/Vol] 10 mmol/L Normal 6-16 [facility] Comment on above: Performed By: #### 2 924294, 9098195, 55126774, 1219425, 6100308 ####[facility] [address] [place] [address] Calcium [Mass/Vol] 9.6 mg/dL Normal 8.9-11.1 [facility] Comment on above: Performed By: #### 2 590958, 1574068, 71104994, 3321239, 8432045 ####[facility] [address] [place] [address] Chloride [Moles/Vol] 106 mmol/L Normal 101-111 [facility] Comment on above: Performed By: #### 2 590519, 7902540, 06429264, 9378112, 3144323 ####[facility] [address] [place] [address] CO2 [Moles/Vol] 25 mmol/L Normal 21-31 [facility] Comment on above: Performed By: #### 2 992326, 6102917, 54287238, 6978865, 3583507 ####[facility] [address] [place] [address] Glucose [Mass/Vol] 77 mg/dL Normal 55-199 [facility] Comment on above: Result Comment: If t his glucose result represents a fasting glucose, interpretation should refer to the following reference range: 55-99 mg/dL Performed By: #### 2 516595, 2966861, 76807022, 9979818, 3918944 ####[facility] [address] [place] [address] Potassium [Moles/Vol] 3.8 mmol/L Normal 3.5-5.3 [facility] Comment on above: Performed By: #### 2 016090, 0622725, 77592983, 3883865, 7678647 ####[facility] [address] [place] [address] Sodium [Moles/Vol] 137 mmol/L Normal 135-145 [facility] Comment on above: Performed By: #### 2 107258, 7959792, 30087877, 2663628, 1509705 ####[facility] [address] [place] [address] CBC w/ Auto Diffon 3 Erythrocyte distribution width (RBC) [Ratio] 12.7 % Normal 10.9-14.2 [facility] Comment on above: Performed By: #### 2 042689, 9016638, 37975067, 8085728, 8547267 ####[facility] [address] [place] [address] Hematocrit (Bld) [Volume fraction] 42.6 % Normal 34.0-46.0 [facility] Comment on above: Performed By: #### 2 655754, 0102322, 63318924, 5044507, 8328524 ####[address] [place] [address] Hemoglobin (Bld) [Mass/Vol] 14.6 g/dL Normal 12.0-16.0 [facility] Comment on above: Performed By: #### 2 259000, 5590893, 90252742, 7635095, 3440246 ####[address] [address] MCH (RBC) [Entitic mass] 30.0 pg Normal 27.0-34.0 [facility] Comment on above: Performed By: #### 2 096972, 6787616, 88682418, 5828231, 7882868 ####[address] [address] MCHC (RBC) [Mass/Vol] 34.3 g/dL Normal 31.4-36.0 [facility] Comment on above: Performed By: #### 2 549612, 4251647, 39519091, 4282935, 8072800 ####[address] [address] MCV (RBC) [Entitic vol] 87.3 fL Normal 80.0-100.0 [facility] Comment on above: Performed By: #### 2 781002, 6587413, 63238585, 9904427, 6729114 ####[address] [address] Platelet mean volume (Bld) [Entitic vol] 7.1 fL Normal 6.4-10.8 [facility] Comment on above: Performed By: #### 2 286745, 5021820, 44880971, 3659872, 1595323 ####[facility] [address] [place] [address] Platelets (Bld) [#/Vol] 254.0 E9/L Normal 150.0-500. 0 [facility] Comment on above: Performed By: #### 2 805628, 3915569, 41199507, 6629117, 9940763 ####[facility] [address] [place] [address] RBC (Bld) [#/Vol] 4.9 E12/L Normal 4.3-5.9 [facility] Comment on above: Performed By: #### 2 785532, 0112534, 27088569, 8398442, 4462480 ####[facility] [address] [place] [address] WBC corrected for nucl RBC Auto (Bld) [#/Vol] 9.4 E9/L Normal 4.0-11.0 [facility] Comment on above: Performed By: #### 2 718928, 9620627, 54371066, 0283889, 1636052 ####[facility] [address] [place] [address] CHEMISTRYOrdered By: SYSTEM SYSTEM on 07-17-2022 Albumin [Mass/Vol] 4.3 g/dL Normal 3.3 - 5.0 gm/dL [facility] Albumin/Globulin [Mass ratio] 1.1 {ratio} Normal 1.1 - 2.2 [facility] ALP [Catalytic activity/Vol] 77 [iU]/d Normal 21 - 98 Int._Unit/ L [facility] ALT No additional P-5'-P [Catalytic activity/Vol] 15 [iU]/d Normal 6 - 46 Int._Unit/ L [facility] Anion gap [Moles/Vol] 10 mmol/L Normal 6 - 16 mEq/L [facility] AST [Catalytic activity/Vol] 17 [iU]/d Normal 5 - 43 Int._Unit/ L [facility] Bilirubin [Mass/Vol] 0.4 mg/dL Normal 0.0 - 1 .1 mg/dL [facility] Bilirubin.direct [Mass/Vol] mg/dL Normal 0.1 - 0.4 mg/dL [facility] Bilirubin.indirect [Mass or moles/Vol] Unable to Calculate mg/dL Invalid Interpretation Code 0.1 - 0.9 mg/dL [facility] Calcium [Mass/Vol] 9.6 mg/dL Normal 8.9 - 11. 1 mg/dL [facility] Chloride [Moles/Vol] 106 mmol/L Normal 101 - 1 11 mmol/L [facility] CO2 [Moles/Vol] 25 mmol/L Normal 21 - 31 mmol/L [facility] Creatinine [Mass/Vol] 0.6 mg/dL Normal 0.5 - 1.3 mg/dL [facility] GFR/1.73 sq M.predicted among blacks MDRD (S/P/Bld) [Vol rate/Area] mL/min/1.73 m2 Normal >=59mL/min /1.73 m2 [facility] Chem S GFR/1.73 sq M.predicted among non-blacks MDRD (S/P/Bld) [Vol rate/Area] mL/min/1.73 m2 Normal >=59mL/min /1.73 m2 [facility] S Globulin (S) [Mass/Vol] 3.9 g/dL Normal 1.4 - 4.0 gm/dL [facility] Glucose [Mass/Vol] 77 mg/dL Normal 55 - 199 mg/dL [facility] Magnesium [Mass/Vol] 1.9 mg/dL Normal 1.3 - 2 .4 mg/dL [facility] Potassium [Moles/Vol] 3.8 mmol/L Normal 3.5 - 5.3 mmol/L [facility] Protein [Mass/Vol] 8.2 g/dL High 6.0 - 7.8 gm/dL [facility] Sodium [Moles/Vol] 137 mmol/L Normal 135 - 145 mmol/L [facility] Troponin I.cardiac [Mass/Vol] 4.60 pg/mL Low 10.10 - 27.10 pg/mL [facility] TSH Qn 3.32 m[IU]/L Normal 0.34 - 5.60 mcIU/mL [facility] Urea nitrogen [Mass/Vol] 15 mg/dL Normal 5 - 21 mg/dL [facility] Urea nitrogen/Creatinine [Mass ratio] 25 mg/mg High 10 - 20 [facility] Consent for Treatmenton 06-29 Consent for Treatment [id number] Normal [facility] HEMATOLOGYOrdered By: SYSTEM SYSTEM on 07-17-2022 Basophils/100 WBC (Bld) 0.9 % Normal 0.0 - 2.0 % [facility]eAutoSS Basophils/Leukocytes Auto (Bld) [Pure # fraction] 0.1 E9/L Normal 0.0 - 0.2 E9/L [facility]eAutoSS Eosinophils/100 WBC (Bld) 4.9 % Normal 0.0 - 8.0 % [facility]eAutoSS Eosinophils/Leukocytes Auto (Bld) [Pure # fraction] 0.5 E9/L Normal 0.0 - 0.5 E9/L [facility]eAutoSS Lymphocytes/100 WBC (Bld) 24.3 % Normal 14.0 - 50.0 % [facility]eAutoSS Lymphocytes/Leukocytes Auto (Bld) [Pure # fraction] 2.3 E9/L Normal 1.0 - 4.0 E9/L [facility] HemeAutoSS Monocytes/100 WBC (Bld) 6.1 % Normal 4.0 - 14.0 % [facility] HemeAutoSS Monocytes/Leukocytes Auto (Bld) [Pure # fraction] 0.6 E9/L Normal 0.2 - 1.0 E9/L [facility]eAutoSS Neutrophils/100 WBC (Bld) 63.8 % Normal 36.0 - 75.0 % [facility]eAutoSS Neutrophils/Leukocytes Auto (Bld) [Pure # fraction] 6.0 E9/L Normal 2.0 - 7.5 E9/L [facility]eAutoSS HEMATOLOGYOrdered By: Linda Montilla on 07-17-2022 Erythrocyte distribution width (RBC) [Ratio] 12.7 % Normal 10.9 - 14.2 % [facility]eAuto[facility] Hematocrit (Bld) [Volume fraction] 42.6 % Normal 34.0 - 46.0 % [facility] HemeAutoSS Hemoglobin (Bld) [Mass/Vol] 14.6 g/dL Normal 12.0 - 16.0 gm/dL [facility]eAutoSS MCH (RBC) [Entitic mass] 30.0 pg Normal 27.0 - 34.0 pg [facility] HemeAutoSS MCHC (RBC) [Mass/Vol] 34.3 g/dL Normal 31.4 - 36.0 gm/dL [facility]eAutoSS MCV (RBC) [Entitic vol] 87.3 fL Normal 80.0 - 100.0 fL [facility]eAutoSS Platelet mean volume (Bld) [Entitic vol] 7.1 fL Normal 6.4 - 10.8 fL [facility] HemeAutoSS Platelets (Bld) [#/Vol] 254.0 E9/L Normal 150.0 - 500.0 E9/L [facility] HemeAutoSS RBC (Bld) [#/Vol] 4.9 E12/L Normal 4.3 - 5.9 E12/L [facility] HemeAutoSS WBC corrected for nucl RBC Auto (Bld) [#/Vol] 9.4 E9/L Normal 4.0 - 11.0 E9/L [facility] HemeAutoSS Hep Func Panelon 07-17-2022 Bilirubin.indirect [Mass or moles/Vol] UTC Abnormal 0.1-0.9 [facility] Comment on above: Result Comment: Resu lt verified by Discern Rule. Performed result UTC (Unable to Calculate) was sent as an Alpha code due the inability to calculate a valid numeric value. Performed By: #### 2 955468, 6105903, 21571258, 9072382, [id number] ####[facility] [address] [place] [address] Albumin [Mass/Vol] 4.3 g/dL Normal 3.3-5.0 [facility] Comment on above: Performed By: #### 2 869216, 8018783, 10222463, 8622465, 7782029 ####[facility] [address] [place] [address] Albumin/Globulin (S) [Mass conc ratio] 1.1 Normal 1.1-2.2 [facility] Comment on above: Performed By: #### 2 856896, 0483721, 91419509, 0799479, 3131202 ####[facility] [address] [place] [address] ALP [Catalytic activity/Vol] 77 Int._Unit/L Normal 21-98 [facility] Comment on above: Performed By: #### 2 566034, 7116233, 81199643, 6794567, 7617982 ####[address] [place] [address] ALT No additional P-5'-P [Catalytic activity/Vol] 15 Int._Unit/L Normal 6-46 [facility] Comment on above: Performed By: #### 2 310014, 5822188, 68438591, 5475460, 7372795 ####[address] [address] AST [Catalytic activity/Vol] 17 Int._Unit/L Normal 5-43 [facility] Comment on above: Performed By: #### 2 081532, 2480644, 91417385, 2905925, 3203925 ####[facility] [address] [place] [address] Bilirubin [Mass/Vol] 0.4 mg/dL Normal 0.0-1.1 [facility] Comment on above: Performed By: #### 2 869794, 4612715, 96187130, 9935269, 2860327 ####[address] [address] Bilirubin.direct [Mass/Vol] mg/dL Normal 0.1-0.4 [facility] Comment on above: Performed By: #### 2 596002, 5145067, 65879540, 6258683, 0400275 ####[facility] [address] [place] [address] Globulin (S) [Mass/Vol] 3.9 g/dL Normal 1.4-4.0 [facility] Comment on above: Performed By: #### 2 878004, 9230460, 65657404, 3076915, 4498990 ####[facility] [address] [place] [address] Protein [Mass/Vol] 8.2 g/dL High 6.0-7.8 [facility] Comment on above: Performed By: #### 2 890452, 7439803, 13252713, 2899082, 5389349 ####[facility] [address] [place] [address] Magnesiumon 07-17-2022 Magnesium [Mass/Vol] 1.9 mg/dL Normal 1.3-2.4 Fish [facility] Comment on above: Performed By: #### 1 8496458, 6564292, 49329708 ####[facility] [address] [place] [address] SEROLOGYOrdered By: Raul For ster on 07-17-2022 HCG.beta subunit (U) [Moles/Vol] Negative Normal [facility] Man Sero TSH With T4fr Reflexon 07-17 TSH Qn 3.32 m[IU]/L Normal 0.34-5.60 [facility] Comment on above: Performed By: #### 1 [id number], 6268347, 68959391 ####[facility] [address] [place] [address] Troponin 0 Hr.on 07-17-2022 Troponin I.cardiac [Mass/Vol] 4.60 pg/mL Low 10.10-27.1 0 [facility] Comment on above: Result Comment: The 95% CI (Confidence Interval) PPV (Positive Predictive Value) for myocardial infarction in females is 38 pg/mL, in males 51 pg/mL. The results should be used in conjunction with clinical conditions of myocardial infarction.(Access High Sensitivity Troponin I Instructions For Use, Wilfrido Gordon, January 2018) Performed By: #### 1 [id number], 1899412, 16532854 ####[facility] [address] [place] [address] U BetaHcg Qualon 07-17-2022 HCG.beta subunit (U) [Moles/Vol] Negative Normal [facility] Comment on above: Performed By: #### 2 416542, 03537251, 76333738 ####[facility] [address] [place] [address] UA With Cult Reflexon 2022 Bacteria LM Ql (Urine sed) TRACE Normal Trace [facility] Comment on above: Performed By: #### 2 841688, 56120444, 07793318 ####[facility] [address] [place] [address] Bilirubin Ql (U) Negative Normal Negative [facility] Comment on above: Performed By: #### 2 312528, 99551060, 92092882 ####[facility] [address] [place] [address] Clarity (U) SL CLOUDY Abnormal Clear [facility] Comment on above: Performed By: #### 2 956089, 68889393, 40108187 ####[facility] [address] [place] [address] Color (U) YELLOW Normal Yellow [facility] Comment on above: Performed By: #### 2 135896, 73222904, 05110773 ####[facility] [address] [place] [address] Epithelial cells.squamous LM.HPF (Urine sed) [#/Area] 0-2 Normal 0-2 [facility] Comment on above: Performed By: #### 2 785180, 15795648, 98314398 ####[facility] [address] [place] [address] Glucose Test strip (U) [Mass/Vol] Negative Normal Negative [facility] Comment on above: Performed By: #### 2 697903, 58648293, 89379750 ####[facility] [address] [place] [address] Hemoglobin Ql (U) 3+ Abnormal Negative [facility] Comment on above: Performed By: #### 2 052558, 12404519, 31592343 ####[facility] [address] [place] [address] Ketones (U) [Mass/Vol] Negative Normal Negative [facility] Comment on above: Performed By: #### 2 957311, 93623185, 02446474 ####[facility] [address] [place] [address] [place].plasma/[place] .RBC (Bld) [Mass ratio] >30 Abnormal 0-3 [facility] Comment on above: Performed By: #### 2 294273, 68326501, 49238203 ####[facility] [address] [place] [address] Mucus Ql (Urine sed) TRACE Normal Fish [facility] Comment on above: Performed By: #### 2 404564, 70271042, 23112691 ####[facility] [address] [place] [address] Nitrite Ql (U) Negative Normal Negative [facility] Comment on above: Performed By: #### 2 329380, 15904042, 62868888 ####[facility] [address] [place] [address] pH (U) 6.0 [pH] Invalid Interpretation Code 5.0-9.0 [facility] Comment on above: Performed By: #### 2 461312, 83408557, 75705707 ####[facility] [address] [place] [address] Protein (U) [Mass/Vol] Negative Normal Negative [facility] Comment on above: Performed By: #### 2 478845, 56105769, 55955051 ####[address] [address] Specific gravity (U) [Rel density] >=1.030 Invalid Interpretation Code 1.005-1.03 0 [facility] Comment on above: Performed By: #### 2 717933, 66365346, 28016152 ####[address] [address] Type of Urine collection method Clean Catch Normal [facility] Comment on above: Performed By: #### 2 248750, 90339953, 98657582 ####[facility] [address] [place] [address] Urobilinogen Qn (U) 0.2 {Diaz'U}/dL Normal 0.0-1.0 [facility] Comment on above: Performed By: #### 2 405512, 91645092, 31022281 ####[facility] [address] [place] [address] WBC Auto Ql (U) 2+ Abnormal Negative [facility] Comment on above: Performed By: #### 2 311423, 10404835, 60894184 ####[facility] [address] [place] [address] WBC LM.HPF (Urine sed) [#/Area] 0-5 Normal 0-5 [facility] Comment on above: Performed By: #### 2 526712, 19662218, 38295604 ####[facility] [address] [place] [address] URINALYSISOrdered By: Raul gordillo on 07-17-2022 Bacteria LM Ql (Urine sed) Trace /HPF Normal Trace/HPF [facility] UA Auto SS Bilirubin Ql (U) Negative (07/17/22 8:03 PM) Normal Negative [facility] UA Auto SS Clarity (U) Slightly Cloudy *ABN* (07/17/22 8:03 PM) Invalid Interpretation Code Clear [facility] UA Auto SS Color (U) Yellow (07/17/22 8:03 PM) Normal Yellow [facility] UA Auto SS Epithelial cells.squamous LM.HPF (Urine sed) [#/Area] 0-2 /HPF Normal 0-2/HPF [facility] UA Aut o SS Glucose Test strip (U) [Mass/Vol] Negative (07/17/22 8:03 PM) Normal Negative [facility] UA Auto SS Hemoglobin Ql (U) 3+ *ABN* (07/17/22 8:03 PM) Invalid Interpretation Code Negative [facility] UA Auto SS Ketones (U) [Mass/Vol] Negative (07/17/22 8:03 PM) Normal Negative [facility] UA Auto SS [place].plasma/[place] .RBC (Bld) [Mass ratio] >30 /HPF Invalid Interpretation Code 0-3/HPF [facility] UA Auto SS Mucus Ql (Urine sed) Trace (07/17/22 8:03 PM) Normal [facility] UA Auto SS Nitrite Ql (U) Negative (07/17/22 8:03 PM) Normal Negative [facility] UA Auto SS pH (U) 6.0 *NA* (07/17/22 8:03 PM) Invalid Interpretation Code 5.0 - 9.0 [facility] UA Auto SS Protein (U) [Mass/Vol] Negative (07/17/22 8:03 PM) Normal Negative [facility] UA Auto SS Specific gravity (U) [Rel density] >=1.030 *NA* (07/17/22 8:03 PM) Invalid Interpretation Code 1.005 - 1.030 [facility] UA Auto SS UA Spec Desc Clean Catch (07/17/22 8:03 PM) Normal [facility] UA Auto SS Urobilinogen Qn (U) 0.3817413 {Diaz'U}/dL Normal 0.0 - 1.0 EU/dL [facility] UA Auto SS WBC Auto Ql (U) 2+ *ABN* (07/17/22 8:03 PM) Invalid Interpretation Code Negative [facility] UA Auto SS WBC LM.HPF (Urine sed) [#/Area] 0-5 /HPF Normal 0-5/HPF [facility] UA Auto SS eGFRon 07-17-2022 GFR/1.73 sq M.predicted among blacks MDRD (S/P/Bld) [Vol rate/Area] mL/min/{1.73_m2} Normal >=59 [facility] Comment on above: Order Comment: Order added by Discern Expert. Result Comment: eGFR is race adjusted. AA=. Performed By: #### 2 420637, 5451003, 56993764, 3891024, 4032079 ####[facility] [address] [place] [address] GFR/1.73 sq M.predicted among non-blacks MDRD (S/P/Bld) [Vol rate/Area] mL/min/{1.73_m2} Normal >=59 [facility] Comment on above: Order Comment: Order added by Discern Expert. Result Comment: [employer] Professional aiyana kidney disease could be indicated at eGFR's of less than 60 mL/min/1.73m2. Kidney failure is indicated at less than 15 mL/min/1.73m2. Performed By: #### 2 549367, 9958919, 59961095, 6683072, 4162793 ####[facility] [address] [place] [address] CBC With Platelet and Differ entialon 07-11-2022 Basophils (Bld) [#/Vol] 0.1 10*3/uL Normal 0.0-0.2 [facility] Comment on above: Performed By: #### U NEYMAR #### [facility] [address] [place] [address] Basophils/100 WBC (Bld) 1.0 % Normal [facility] Comment on above: Performed By: #### U NEYMAR #### [facility] [address] [place] [address] Eosinophils (Bld) [#/Vol] 0.3 10*3/uL Normal 0.0-0.7 [facility] Comment on above: Performed By: #### U NEYMAR #### [facility] [address] [place] [address] Eosinophils/100 WBC (Bld) 4.3 % Normal [facility] Comment on above: Performed By: #### U NEYMAR #### [facility] [address] [place] [address] Erythrocyte distribution width (RBC) [Ratio] 12.6 % Normal 11.5-14.5 [facility] Comment on above: Performed By: #### U NEYMAR #### [facility] [address] [place] [address] Hematocrit (Bld) [Volume fraction] 41.7 % Normal 37.0-47.0 [facility] Comment on above: Performed By: #### U NEYMAR #### [facility] [address] [place] [address] Hemoglobin (Bld) [Mass/Vol] 14.6 g/dL Normal 12.0-16.0 [facility] Comment on above: Performed By: #### U NEYMAR #### [facility] [address] [place] [address] Lymphocytes (Bld) [#/Vol] 2.3 10*3/uL Normal 1.0-4.8 [facility] Comment on above: Performed By: #### U NEYMAR #### [facility] [address] [place] [address] Lymphocytes/100 WBC (Bld) 28.8 % Normal [facility] Comment on above: Performed By: #### U NEYMAR #### [facility] [address] [place] [address] MCH (RBC) [Entitic mass] 30.7 pg Normal 27.0-31.3 [facility] Comment on above: Performed By: #### U NEYMAR #### [facility] [address] [place] [address] MCHC 35.0 % Normal 33.0-37.0 [facility] Comment on above: Performed By: #### U NEYMAR #### [facility] [address] [place] [address] MCV (RBC) [Entitic vol] 87.6 fL Normal 79.4-94.8 [facility] Comment on above: Performed By: #### U NEYMAR #### [facility] [address] [place] [address] Monocytes (Bld) [#/Vol] 0.5 10*3/uL Normal 0.2-0.8 [facility] Comment on above: Performed By: #### U NEYMAR #### [facility] [address] [place] [address] Monocytes/100 WBC (Bld) 6.8 % Normal [facility] Comment on above: Performed By: #### U NEYMAR #### [facility] [address] [place] [address] Neutrophils (Bld) [#/Vol] 4.8 10*3/uL Normal 1.4-6.5 [facility] Comment on above: Performed By: #### U NEYMAR #### [facility] [address] [place] [address] Neutrophils/100 WBC (Bld) 59.1 % Normal [facility] Comment on above: Performed By: #### U NEYMAR #### [facility] [address] [place] [address] Platelets (Bld) [#/Vol] 240 10*3/uL Normal 130-400 [facility] Comment on above: Performed By: #### U NEYMAR #### [facility] [address] [place] [address] RBC (Bld) [#/Vol] 4.76 10*6/uL Normal 4.20-5.40 [facility] Comment on above: Performed By: #### U NEYMAR #### [facility] [address] [place] [address] WBC (Bld) [#/Vol] 8.1 10*3/uL Normal 4.8-10.8 [facility] Comment on above: Performed By: #### U NEYMAR #### [facility] [address] [place] [address] CT KIDNEY WO CONTRASTon 06-29 CT KIDNEY WO CONTRAST EXAMINATION: CT OF THE ABDOMEN AND PELVIS WITHOUT CONTRAST 07/10/2022 10:06 pm TECHNIQUE: CT of the abdomen and pelvis was performed without the administration of intravenous contrast. Oral contrast was administered. Multiplanar reformatted images are provided for review. Automated exposure control, iterative reconstruction, and/or weight based adjustment of the mA/kV was utilized to reduce the radiation dose to as low as reasonably achievable. COMPARISON: October 01, 2020 HISTORY: ORDERING SYSTEM PROVIDED HISTORY: right flank pain TECHNOLOGIST PROVIDED HISTORY: Reason for exam:->right flank pain Decision Support Exception - unselect if not a suspected or confirmed emergency medical condition->Emergency Medical Condition (MA) What reading provider will be dictating this exam?->CRC FINDINGS: Lower Chest: No infiltrate or effusion. Organs: Nonobstructing 5 mm right upper pole nephrolithiasis and 2 mm left lower pole nephrolithiasis. Cholecystectomy. Liver, biliary tree, bilateral adrenal glands, bilateral kidneys, spleen and pancreas are otherwise normal.. GI/Bowel: No ileus or obstruction. No bowel inflammatory process. Normal appendix right lower quadrant. Pelvis: Hysterectomy. No adnexal mass or free fluid. Peritoneum/Retroperitoneu m: Right gonadal vein calcifications. Bones/Soft Tissues: Negative. IMPRESSION: 1. No acute disease. 2. Nonobstructing bilateral nephrolithiasis. 3. Normal appendix. RECOMMENDATIONS: Careful clinical correlation and follow up recommended. Interpreted by: Angel Selby MD Signed by: Angel Selby MD 07/10/22 Final result Normal [facility] Comprehensive Metabolic Pane ben 07-11-2022 Anion gap [Moles/Vol] 13 mmol/L Normal 9-15 [facility] Comment on above: Performed By: #### C MP #### [facility] [address] [place] [address] Albumin [Mass/Vol] 4.3 g/dL Normal 3.5-4.6 [facility] Comment on above: Performed By: #### C MP #### [facility] [address] [place] [address] ALP [Catalytic activity/Vol] 79 U/L Normal 40-130 [facility] Comment on above: Performed By: #### C MP #### [facility] [address] [place] [address] ALT [Catalytic activity/Vol] 14 U/L Normal 0-33 [facility] Comment on above: Performed By: #### C MP #### [facility] [address] [place] [address] AST [Catalytic activity/Vol] 18 U/L Normal 0-35 [facility] Comment on above: Result Comment: Spec imen hemolysis has exceeded the interference as defined by Mariah. Value may be falsely increased. Suggest recollection if clinically indicated. Performed By: #### C MP #### [facility] [address] [place] [address] Bilirubin [Mass/Vol] mg/dL Normal 0.2-0.7 [facility] Comment on above: Performed By: #### C MP #### [facility] [address] [place] [address] Calcium [Mass/Vol] 9.8 mg/dL Normal 8.5-9.9 [facility] Comment on above: Performed By: #### C MP #### [facility] [address] [place] [address] Chloride [Moles/Vol] 103 mmol/L Normal 95-107 [facility] Comment on above: Performed By: #### C MP #### [facility] [address] [place] [address] CO2 [Moles/Vol] 24 mmol/L Normal 20-31 [facility] Comment on above: Performed By: #### C MP #### [facility] [address] [place] [address] Creatinine [Mass/Vol] 0.55 mg/dL Normal 0.50-0.90 [facility] Comment on above: Performed By: #### C MP #### [facility] [address] [place] [address] GFR >60.0 Normal >60 [facility] Comment on above: Result Comment: Pedi atric calculator link https://www.kidney.org/professionals/kdoqi/gfr_calculatorped Effective Mar 31, 2022 These results are not intended for use in patients <18 years of age. eGFR results are calculated without a race factor using the 2020 CKD-EPI equation. Careful clinical correlation is recommended, particularly when comparing to results calculated using previous equations. The CKD-EPI equation is less accurate in patients with extremes of muscle mass, extra-renal metabolism of creatinine, excessive creatinine ingestion, or following therapy that affects renal tubular secretion. Performed By: #### C MP #### [facility] [address] [place] [address] Globulin (S) [Mass/Vol] 3.3 g/dL Normal 2.3-3.5 [facility] Comment on above: Performed By: #### C MP #### [facility] [address] [place] [address] Glucose [Mass/Vol] 85 mg/dL Normal 70-99 [facility] Comment on above: Performed By: #### C MP #### [facility] [address] [place] [address] Potassium [Moles/Vol] 4.0 mmol/L Normal 3.4-4.9 [facility] Comment on above: Performed By: #### C MP #### [facility] [address] [place] [address] Protein [Mass/Vol] 7.6 g/dL Normal 6.3-8.0 [facility] Comment on above: Performed By: #### C MP #### [facility] [address] [place] [address] Sodium [Moles/Vol] 140 mmol/L Normal 135-144 [facility] Comment on above: Performed By: #### C MP #### [facility] [address] [place] [address] Urea nitrogen [Mass/Vol] 20 mg/dL Normal 6-20 [facility] Comment on above: Performed By: #### C MP #### [facility] [address] [place] [address] Lactic Acidon 07-11-2022 Lactate [Moles/Vol] 1.5 mmol/L Normal 0.5-2.2 [facility] Comment on above: Performed By: #### L ACID #### [facility] [address] [place] [address] Lipaseon 07-11-2022 Lipase [Catalytic activity/Vol] 34 U/L Normal 12-95 [facility] Comment on above: Performed By: #### C MP #### [facility] [address] [place] [address] CBC with Auto Differentialon 07-10-2022 Basophils (Bld) [#/Vol] 0.1 10*3/uL 0.0 - 0.2 K/uL [facility] Basophils/100 WBC (Bld) 1.0 % [facility] Eosinophils (Bld) [#/Vol] 0.3 10*3/uL 0.0 - 0.7 K/uL [facility] Eosinophils/100 WBC (Bld) 4.3 % [facility] Hematocrit (Bld) [Volume fraction] 41.7 % 37.0 - 47.0 % [facility] Hemoglobin (Bld) [Mass/Vol] 14.6 g/dL 12.0 - 16.0 g/dL [facility] Lymphocytes (Bld) [#/Vol] 2.3 10*3/uL 1.0 - 4.8 K/uL [facility] Lymphocytes/100 WBC (Bld) 28.8 % [facility] MCH (RBC) [Entitic mass] 30.7 pg 27.0 - 31.3 pg [facility] MCHC (RBC) [Mass/Vol] 35.0 % 33.0 - 37.0 % [facility] MCV (RBC) [Entitic vol] 87.6 fL 79.4 - 94.8 fL [facility] Monocytes (Bld) [#/Vol] 0.5 10*3/uL 0.2 - 0.8 K/uL [facility] Monocytes/100 WBC (Bld) 6.8 % [facility] Neutrophils Absolute 4.8 K/uL 1.4 - 6 .5 K/uL [facility] Neutrophils/100 WBC (Bld) 59.1 % [facility] Platelet distribution width (Bld) [Ratio] 12.6 % 11.5 - 14.5 % [facility] Platelets (Bld) [#/Vol] 240 10*3/uL 130 - 400 K/uL [facility] RBC (Bld) [#/Vol] 4.76 10*6/uL [facility] WBC (Bld) [#/Vol] 8.1 10*3/uL 4.8 - 10.8 K/uL [facility] CMPon 07-10-2022 Albumin [Mass/Vol] 4.3 g/dL 3.5 - 4.6 g/dL [facility] ALP (Bld) [Catalytic activity/Vol] 79 U/L 40 - 130 U/L [facility] ALT [Catalytic activity/Vol] 14 U/L 0 - 33 U/L [facility] Anion gap [Moles/Vol] 13 mmol/L [facility] AST [Catalytic activity/Vol] 18 U/L 0 - 35 U/L [facility] Comment on above: Specimen hemolysis h as exceeded the interference as defined by Mariah. Value may be falsely increased. Suggest recollection if clinically indicated. Bilirubin [Mass/Vol] mg/dL 0.2 - 0 .7 mg/dL [facility] Calcium [Mass/Vol] 9.8 mg/dL 8.5 - 9.9 mg/dL [facility] Chloride [Moles/Vol] 103 mmol/L [facility] CO2 [Moles/Vol] 24 mmol/L [facility] Creatinine [Mass/Vol] 0.55 mg/dL 0.50 - 0.90 mg/dL [facility] GFR/1.73 sq M.predicted MDRD (S/P/Bld) [Vol rate/Area] 60 - PINF [facility] Comment on above: Pediatric calculator link https://www.kidney.org/professionals/kdoqi/gfr_calculatorped Effective Mar 31, 2022 These results are not intended for use in patients <18 years of age. eGFR results are calculated without a race factor using the 2020 CKD-EPI equation. Careful clinical correlation is recommended, particularly when comparing to results calculated using previous equations. The CKD-EPI equation is less accurate in patients with extremes of muscle mass, extra-renal metabolism of creatinine, excessive creatinine ingestion, or following therapy that affects renal tubular secretion. Globulin (S) [Mass/Vol] 3.3 g/dL 2.3 - 3.5 g/dL [facility] Glucose [Mass/Vol] 85 mg/dL 70 - 99 mg/dL [facility] Potassium [Moles/Vol] 4.0 mmol/L [facility] Protein [Mass/Vol] 7.6 g/dL 6.3 - 8.0 g/dL [facility] Sodium [Moles/Vol] 140 mmol/L [facility] Urea nitrogen (BldV) [Mass/Vol] 20 mg/dL 6 - 20 mg/dL [facility] CT KIDNEY WO CONTRASTon 06-29 1. No acute disease. 2. Nonobstructing bilateral nephrolithiasis. 3. Normal appendix. RECOMMENDATIONS: Careful clinical correlation and follow up recommended. [facility] RADIOLOGY EXAMINATION: CT OF THE ABDOMEN AND PELVIS WITHOUT CONTRAST 07/10/2022 10:06 pm TECHNIQUE: CT of the abdomen and pelvis was performed without the administration of intravenous contrast. Oral contrast was administered. Multiplanar reformatted images are provided for review. Automated exposure control, iterative reconstruction, and/or weight based adjustment of the mA/kV was utilized to reduce the radiation dose to as low as reasonably achievable. COMPARISON: October 01, 2020 HISTORY: ORDERING SYSTEM PROVIDED HISTORY: right flank pain TECHNOLOGIST PROVIDED HISTORY: Reason for exam:->right flank pain Decision Support Exception - unselect if not a suspected or confirmed emergency medical condition->Emergency Medical Condition ([place]) What reading provider will be dictating this exam?->CRC FINDINGS: Lower Chest: No infiltrate or effusion. Organs: Nonobstructing 5 mm right upper pole nephrolithiasis and 2 mm left lower pole nephrolithiasis. Cholecystectomy. Liver, biliary tree, bilateral adrenal glands, bilateral kidneys, spleen and pancreas are otherwise normal.. GI/Bowel: No ileus or obstruction. No bowel inflammatory process. Normal appendix right lower quadrant. Pelvis: Hysterectomy. No adnexal mass or free fluid. Peritoneum/Retroperitoneu m: Right gonadal vein calcifications. Bones/Soft Tissues: Negative. [facility] RADIOLOGY Angel Selby MD - 07/10/2022 EXAMINATION: CT OF THE ABDOMEN AND PELVIS WITHOUT CONTRAST 07/10/2022 10:06 pm TECHNIQUE: CT of the abdomen and pelvis was performed without the administration of intravenous contrast. Oral contrast was administered. Multiplanar reformatted images are provided for review. Automated exposure control, iterative reconstruction, and/or weight based adjustment of the mA/kV was utilized to reduce the radiation dose to as low as reasonably achievable. COMPARISON: October 01, 2020 HISTORY: ORDERING SYSTEM PROVIDED HISTORY: right flank pain TECHNOLOGIST PROVIDED HISTORY: Reason for exam:->right flank pain Decision Support Exception - unselect if not a suspected or confirmed emergency medical condition->Emergency Medical Condition ([place]) What reading provider will be dictating this exam?->CRC FINDINGS: Lower Chest: No infiltrate or effusion. Organs: Nonobstructing 5 mm right upper pole nephrolithiasis and 2 mm left lower pole nephrolithiasis. Cholecystectomy. Liver, biliary tree, bilateral adrenal glands, bilateral kidneys, spleen and pancreas are otherwise normal.. GI/Bowel: No ileus or obstruction. No bowel inflammatory process. Normal appendix right lower quadrant. Pelvis: Hysterectomy. No adnexal mass or free fluid. Peritoneum/Retroperitoneu m: Right gonadal vein calcifications. Bones/Soft Tissues: Negative. IMPRESSION: 1. No acute disease. 2. Nonobstructing bilateral nephrolithiasis. 3. Normal appendix. RECOMMENDATIONS: Careful clinical correlation and follow up recommended. [facility] [employer] Work Phone: Radiology Study observation (narrative) [facility] [employer] Work Phone: CT KIDNEY WO CONTRASTOrdered By: Angel Selby on 07-10-2022 [facility] [employer] Work Phone: Lactic Acidon 07-10-2022 Lactate [Moles/Vol] 1.5 mmol/L 0.5 - 2. 2 mmol/L [facility] [employer] [facility] [employer] Lipaseon 07-10-2022 Lipase [Catalytic activity/Vol] 34 U/L 12 - 95 U/L [facility] [employer] Microscopic Urinalysison Bacteria, UA Negative Negative /HPF [facility] [employer] Epithelial Cells, UA 10-20 [facility] [employer] Hyaline Casts, UA 1-3 [facility] [employer] RBC (U) [#/Vol] /uL High [facility] [employer] WBC, UA 6-9 Abnormal [facility] No Panel Informationon 07-10 [facility] [employer] Interpretation and review of laboratory results Abnormal [facility] Urinalysis with Reflex to Cu ltureon 07-10-2022 Bilirubin Urine Negative Negative [facility] [employer] [facility] [employer] Blood, Urine LARGE Abnormal Negative [facility] [employer] Clarity, UA CLOUDY Abnormal Clear [facility] [employer] Color, UA Yellow Straw/Clay ow [facility] Glucose, Ur >=1000 Abnormal Negative mg/dL [facility] Ketones Ql (U) TRACE Abnormal Negative mg/dL [facility] Leukocyte esterase Test strip Ql (U) SMALL Abnormal Negative [facility] Nitrite, Urine Negative Negative [facility] pH, UA 5.5 5.0 - 9.0 [facility] Protein, UA Negative Negative mg/dL [facility] Specific [place], UA 1.032 1.005 - 1.030 [facility] Urine Reflex to Culture Not Indicated [facility] Urobilinogen, Urine 0.2 NINF [facility] Urinalysis, reflex to cultur andre 07-10-2022 Urine Reflexed to Culture Not Indicated Normal [facility] Comment on above: Performed By: #### U AR #### [facility] [address] [place] [address] Bilirubin Ql (U) Negative Normal Negative [facility] Comment on above: Performed By: #### U AR #### [facility] [address] [place] [address] Clarity (U) CLOUDY Abnormal Clear [facility] Comment on above: Performed By: #### U AR #### [facility] [address] [place] [address] Color (U) Yellow Normal Straw/Clay [facility] Comment on above: Performed By: #### U AR #### [facility] [address] [place] [address] Glucose Ql (U) >=1000 Abnormal Negative [facility] Comment on above: Performed By: #### U AR #### [facility] [address] [place] [address] Hemoglobin Ql (U) LARGE Abnormal Negative [facility] Comment on above: Performed By: #### U AR #### [facility] [address] [place] [address] Ketones Ql (U) TRACE Abnormal Negative [facility] Comment on above: Performed By: #### U AR #### [facility] [address] [place] [address] Leukocyte esterase Test strip Ql (U) SMALL Abnormal Negative [facility] Comment on above: Performed By: #### U AR #### [facility] [address] [place] [address] Nitrite Ql (U) Negative Normal Negative [facility] Comment on above: Performed By: #### U AR #### [facility] [address] [place] [address] pH (U) 5.5 [pH] Normal 5.0-9.0 [facility] Comment on above: Performed By: #### U AR #### [facility] [address] [place] [address] Protein Ql (U) Negative Normal Negative [facility] Comment on above: Performed By: #### U AR #### [facility] [address] [place] [address] Specific gravity (U) [Rel density] 1.032 Normal 1.005-1.03 [facility] Comment on above: Performed By: #### U AR #### [facility] [address] [place] [address] Urobilinogen Qn (U) 0.2 {Diaz'U}/dL Normal < 2.0 [facility] Comment on above: Performed By: #### U AR #### [facility] [address] [place] [address] Urine Microscopicon 07-10-19 23 Bacteria LM.HPF (Urine sed) [#/Area] Negative Normal Negative [facility] Comment on above: Performed By: #### U NEYMAR #### [facility] [address] [place] [address] Urine Epithelial Cells Auto 10-20 Normal 0-5 [facility] Comment on above: Performed By: #### U NEYMAR #### [facility] [address] [place] [address] Urine Hyaline Casts Auto 1-3 Normal 0-5 [facility] Comment on above: Performed By: #### U NEYMAR #### [facility] [address] [place] [address] Urine RBC Auto >100 Critically high 0-5 [facility] Comment on above: Performed By: #### U NEYMAR #### [facility] [address] [place] [address] Urine WBC Auto 6-9 Abnormal 0-5 [facility] Comment on above: Performed By: #### U NEYMAR #### [facility] [address] [place] [address] Basophils Auto (Bld) [#/Vol] Ordered By: Yehuda Louis on 07-04-2022 Basophils (Bld) [#/Vol] 0.1 10*3/uL 0.0-0.2 [facility] Basophils/100 WBC Auto (Bld) Ordered By: Yehuda Louis on 07-04-2022 Basophils/100 WBC (Bld) 1.5 % . [facility] Body fluid albumin measureme nt (mass/volume)Ordered By: Yehuda Louis on 07-04-2022 Albumin (Body fld) [Mass/Vol] 4.0 g/dL 3.2-5.5 [facility] Creatinine and Glomerular fi ltration rate.predicted panel (S/P/Bld)Ordered By: Yehuda Louis on 07-04-2022 Creatinine [Mass/Vol] 0.71 mg/dL 0.44-1.03 [facility] Direct bilirubin measurement Ordered By: Yehuda Louis on 07-04-2022 Bilirubin.direct [Mass/Vol] mg/dL 0.0-0.4 [facility] Eosinophils Auto (Bld) [#/Vo l]Ordered By: Yehuda Louis on 07-04-2022 Eosinophils (Bld) [#/Vol] 0.3 10*3/uL 0.0-0.45 [facility] Eosinophils/100 WBC Auto (Bl d)Ordered By: Yehuda Louis on 07-04-2022 Eosinophils/100 WBC (Bld) 3.5 % . [facility] Erythrocyte distribution wid th Auto (RBC) [Ratio]Ordered By: Yehuda Louis on 07-04-2022 Erythrocyte distribution width (RBC) [Ratio] 12.7 % 11.9-15.3 [facility] Estimated glomerular filtrat ion rate (GFR) non- AmericanOrdered By: Yehuda Louis on 07-04-2022 GFR/1.73 sq M.predicted among non-blacks MDRD (S/P/Bld) [Vol rate/Area] > 60 mL/Min [facility] Globulin Calc (S) [Mass/Vol] Ordered By: Yehuda Louis on 07-04-2022 Globulin (S) [Mass/Vol] 3.1 g/dL [facility] Hematocrit Auto (Bld) [Volum e fraction]Ordered By: Yehuda Louis on 07-04-2022 Hematocrit (Bld) [Volume fraction] 39.3 % 34.0-46.4 [facility] Hemoglobin [Mass/volume] in BloodOrdered By: Yehuda Louis on 07-04-2022 Hemoglobin (Bld) [Mass/Vol] 13.5 g/dL 11.8-15.4 [facility] Laboratory - Chemistry and C hemistry - challengeOrdered By: Yehuda Louis on 07-04-2022 Lipase [Catalytic activity/Vol] 37.0 U/L 22-51 [facility] Leukocytes [#/volume] correc suzanne for nucleated erythrocytes in Blood by Automated counOrdered By: Yehuda Louis on 07-04-2022 WBC corrected for nucl RBC Auto (Bld) [#/Vol] 8.3 10*3/uL 3.8-11.6 [facility] Lymphocytes Auto (Bld) [#/Vo l]Ordered By: Yehuda Louis on 07-04-2022 Lymphocytes (Bld) [#/Vol] 2.2 10*3/uL 1.00-4.8 [facility] Lymphocytes/100 WBC Auto (Bl d)Ordered By: Yehuda Louis on 07-04-2022 Lymphocytes/100 WBC (Bld) 26.1 % . [facility] MCH Auto (RBC) [Entitic mass ]Ordered By: Yehuda Louis on 07-04-2022 MCH (RBC) [Entitic mass] 30.1 pg 24.7-34.3 [facility] MCHC Auto (RBC) [Mass/Vol]Or dered By: Yehuda Louis on 07-04-2022 MCHC (RBC) [Mass/Vol] 34.5 g/dL 32.0-35.0 [facility] MCV Auto (RBC) [Entitic vol] Ordered By: Yehuda Louis on 07-04-2022 MCV (RBC) [Entitic vol] 87.5 fL 80-100 [facility] Monocyte distribution width [Entitic volume] in Blood by AutomatedOrdered By: Yehuda Louis on 07-04-2022 Monocyte distribution width Auto (Bld) [Entitic vol] 17.25 % 0.00-20.00 [facility] Monocytes Auto (Bld) [#/Vol] Ordered By: Yehuda Louis on 07-04-2022 Monocytes (Bld) [#/Vol] 0.6 10*3/uL 0.0-0.8 [facility] Monocytes/100 WBC Auto (Bld) Ordered By: Yehuda Louis on 07-04-2022 Monocytes/100 WBC (Bld) 7.1 % . [facility] Neutrophils Auto (Bld) [#/Vo l]Ordered By: Yehuda Louis on 07-04-2022 Neutrophils (Bld) [#/Vol] 5.1 10*3/uL 1.8-7.7 [facility] Neutrophils/100 WBC Auto (Bl d)Ordered By: Yehuda Louis on 07-04-2022 Neutrophils/100 WBC (Bld) 61.8 % . [facility] No Panel InformationOrdered By: Yehuda Louis on 07-04-2022 Estimated GFR () > 60 mL/Min [facility] Comment on above: GFR estimated refere nce range: According to KDOQI guidelines, <60 ml/min/1.73m2 is sufficient to diagnose a patient with chronic kidney disease. Pharmacy Creatinine Clearance (Chem 129.89 [facility] > 60 mL/Min [facility] 37.0 U/L 22-51 [facility] 129.89 [facility] Nucleated erythrocytes [Pres ence] in Blood by Automated countOrdered By: Yehuda Louis on 07-04-2022 Nucleated RBC Auto Ql (Bld) 0.1 /100{WBC} 0-0.5 [facility] Platelet mean volume Auto (B ld) [Entitic vol]Ordered By: Yehuda Louis on 07-04-2022 Platelet mean volume (Bld) [Entitic vol] 6.9 fL 6.3-10.7 [facility] Platelets Auto (Bld) [#/Vol] Ordered By: Yehuda Louis on 07-04-2022 Platelets (Bld) [#/Vol] 253 10*3/uL 150-450 [facility] Protein [Mass/volume] in Ser um or PlasmaOrdered By: Yehuda Louis on 07-04-2022 Protein [Mass/Vol] 7.1 g/dL 6.1-7.9 [facility] RBC Auto (Bld) [#/Vol]Ordere d By: Yehuda Louis on 07-04-2022 RBC (Bld) [#/Vol] 4.49 10*6/uL 3.60-5.00 [facility] Serum or plasma alanine slaughter otransferase measurement without P-5'-P (enzymatic activiOrdered By: Yehuda Louis on 07-04-2022 ALT No additional P-5'-P [Catalytic activity/Vol] 14 U/L 10-60 [facility] Serum or plasma albumin/glob ulin mass ratioOrdered By: Yehuda Louis on 07-04-2022 Albumin/Globulin [Mass ratio] 1.3 {ratio} [facility] Serum or plasma alkaline shelby sphatase measurement (enzymatic activity/volume)Ordered By: Yehuda Louis on 07-04-2022 ALP [Catalytic activity/Vol] 61 U/L 32-92 [facility] Serum or plasma anion gap de terminationOrdered By: Yehuda Louis on 07-04-2022 Anion gap [Moles/Vol] 14.4 mmol/L 6.0-15.0 [facility] Serum or plasma aspartate am inotransferase measurement (enzymatic activity/volume)Ordered By: Yehuda Louis on 07-04-2022 AST [Catalytic activity/Vol] 16 U/L 10-42 [facility] Serum or plasma calcium jesse urement (mass/volume)Ordered By: Yehuda Louis on 07-04-2022 Calcium [Mass/Vol] 9.7 mg/dL 8.2-10.2 [facility] Serum or plasma chloride marcia surement (moles/volume)Ordered By: Yehuda Louis on 07-04-2022 Chloride [Moles/Vol] 100 mmol/L 95-114 [facility] Serum or plasma creatinine m easurement with calculation of estimated glomerular filtrOrdered By: Yehuda Louis on 07-04-2022 Creatinine and Glomerular filtration rate.predicted panel (S/P/Bld) 0.71 mg/dL 0.44-1.03 [facility] Serum or plasma glucose jesse urement (mass/volume)Ordered By: Yehuda Louis on 07-04-2022 Glucose [Mass/Vol] 119 mg/dL 70-100 [facility] Comment on above: ADA recommended refe rence rangeRandom Glucose Reference Range is dependent on time and content of last meal. Glucose of more than 200 mg/dL in a nonstressed, ambulatory subject supports the diagnosis of Diabetes Mellitus. Serum or plasma non-glucuron idated bilirubin measurement (mass/volume)Ordered By: Yehuda Louis on 07-04-2022 Bilirubin.indirect [Mass/Vol] TNP [facility] Comment on above: Test not performed Serum or plasma potassium me asurement (moles/volume)Ordered By: Yehuda Louis on 07-04-2022 Potassium [Moles/Vol] 3.8 mmol/L 3.5-5.1 [facility] Serum or plasma sodium measu rement (moles/volume)Ordered By: Yehuda Louis on 07-04-2022 Sodium [Moles/Vol] 138 mmol/L 136-146 [facility] Serum or plasma total biliru bin measurement (mass/volume)Ordered By: Yehuda Louis on 07-04-2022 Bilirubin [Mass/Vol] 0.4 mg/dL 0.3-1.2 [facility] Serum or plasma total carbon dioxide measurement (moles/volume)Ordered By: Yehuda Louis on 07-04-2022 CO2 [Moles/Vol] 27.4 mmol/L 22.0-30.0 [facility] Serum or plasma urea nitroge n measurement (mass/volume)Ordered By: Yehuda Louis on 07-04-2022 Urea nitrogen [Mass/Vol] 18 mg/dL 9-23 [facility] WBC Auto (Bld) [#/Vol]Ordere d By: Yehuda Louis on 07-04-2022 WBC (Bld) [#/Vol] 8.3 10*3/uL 3.8-11.6 [facility] Automated erythrocytes count in urine sediment (number/area)Ordered By: Yehuda Louis on 07-03-2022 RBC Auto (Urine sed) [#/Area] Innumerable [HPF] 0-4 [facility] Automated leukocytes count i n urine sediment (number/area)Ordered By: Yehuda Louis on 07-03-2022 WBC Auto (Urine sed) [#/Area] 20-49 [HPF] 0-4 [facility] Bilirubin Auto test strip Ql (U)Ordered By: Yehuda Louis on 07-03-2022 Bilirubin Ql (U) Negative Negative [facility] Ketones Auto test strip (U) [Mass/Vol]Ordered By: Yehuda Louis on 07-03-2022 Ketones (U) [Mass/Vol] Negative Negative [facility] - UrinalysisOrder ed By: Yehuda Louis on 07-03-2022 Hyaline casts LM Ql (Urine sed) 0-8 [LPF] 0-8 [facility] No Panel InformationOrdered By: Yehuda Louis on 07-03-2022 0-8 [LPF] 0-8 [facility] Protein Auto test strip (U) [Mass/Vol]Ordered By: Yehuda Louis on 07-03-2022 Protein (U) [Mass/Vol] Negative Negative [facility] Squamous epithelial cells de tection in urine sediment by light microscopyOrdered By: Yehuda Louis on 07-03-2022 Epithelial cells.squamous LM Ql (Urine sed) 10-19 [HPF] 0-2 [facility] Urine appearanceOrdered By: Yehuda Louis on 07-03-2022 Appearance (U) Slightly cloudy Clear [facility] Urine bacteria detection by automated methodOrdered By: Yehuda Louis on 07-03-2022 Bacteria Auto Ql (U) None seen None Seen [facility] Urine colorOrdered By: Juarez Louis on 07-03-2022 Color (U) Other Yellow [facility] Urine culture routineOrdered By: Yehuda Louis on 07-03-2022 Bacteria identified Cx Nom (U) [address] [facility] Urine glucose measurement by automated test strip (mass/volume)Ordered By: Yehuda Louis on 07-03-2022 Glucose Auto test strip (U) [Mass/Vol] Normal mg/dL Normal [facility] Urine hemoglobin detection b y automated test stripOrdered By: Yehuda Louis on 07-03-2022 Hemoglobin Auto test strip Ql (U) 3+ Negative [facility] Urine leukocyte esterase det ection by automated test stripOrdered By: Yehuda Louis on 07-03-2022 Leukocyte esterase Auto test strip Ql (U) 4+ Negative [facility] Urine nitrite detection by a utomated test stripOrdered By: Yehuda Louis on 07-03-2022 Nitrite Auto test strip Ql (U) Negative Negative [facility] Urine sediment renal epithel ial cell count by microscopy (number/high power field)Ordered By: Yehuda Louis on 07-03-2022 Epithelial cells.renal LM.HPF (Urine sed) [#/Area] 0-1 [HPF] 0-1 [facility] Urobilinogen Auto test strip (U) [Mass/Vol]Ordered By: Yehuda Louis on 07-03-2022 Urobilinogen (U) [Mass/Vol] Normal mg/dL Normal [facility] pH Auto test strip (U)Ordere d By: Yehuda Louis on 07-03-2022 pH (U) 1.020 [pH] 1.001-1.[address] [facility] pH (U) 6.0 [pH] 5.0-9.0 [facility] C Urineon 06-21-2022 Bacteria identified Cx Nom (U) Normal [facility] Comment on above: Performed By: #### 1 [id number] ####[address] [address] Coding Summary.on 06-20-2022 Coding Summary. Normal [facility] Auto Diffon 06-19-2022 Basophils/100 WBC (Bld) 0.9 % Normal 0.0-2.0 [facility] Comment on above: Order Comment: Order Added by Discern Expert. Performed By: #### 2 [id number] ####[address] [address] Basophils/Leukocytes Auto (Bld) [Pure # fraction] 0.1 E9/L Normal 0.0-0.2 [facility] Comment on above: Order Comment: Order Added by Discern Expert. Performed By: #### 2 [id number] ####[address] [place] [address] Eosinophils/100 WBC (Bld) 5.5 % Normal 0.0-8.0 [facility] Comment on above: Order Comment: Order Added by Discern Expert. Performed By: #### 2 [id number] ####[address] [address] Eosinophils/Leukocytes Auto (Bld) [Pure # fraction] 0.4 E9/L Normal 0.0-0.5 [facility] Comment on above: Order Comment: Order Added by Discern Expert. Performed By: #### 2 [id number] ####[address] [address] Lymphocytes/100 WBC (Bld) 31.7 % Normal 14.0-50.0 [facility] [facility] Comment on [facility]: Order Comment: Order Added by Discern Expert. Performed By: #### 2 292559, 4021685, 30013617, 2082176, 4572770, 2798198 ####[address] [place] [address] Lymphocytes/Leukocytes Auto (Bld) [Pure # fraction] 2.1 E9/L Normal 1.0-4.0 [facility] Comment on above: Order Comment: Order Added by Discern Expert. Performed By: #### 2 166434, 0412214, 30490909, 8253554, 1903652, 1965444 ####[address] [place] [address] Monocytes/100 WBC (Bld) 7.6 % Normal 4.0-14.0 [facility] Comment on above: Order Comment: Order Added by Discern Expert. Performed By: #### 2 716839, 6745322, 27500978, 0375399, 1346630, 7255088 ####[address] [address] Monocytes/Leukocytes Auto (Bld) [Pure # fraction] 0.5 E9/L Normal 0.2-1.0 [facility] Comment on above: Order Comment: Order Added by Discern Expert. Performed By: #### 2 899677, 0087569, 21829539, 4000706, 2295515, 1334983 ####[address] [place] [address] Neutrophils/100 WBC (Bld) 54.3 % Normal 36.0-75.0 [facility] Comment on above: Order Comment: Order Added by Discern Expert. Performed By: #### 2 378152, 1926639, 53753529, 4036315, 5840288, 5359698 ####[address] [place] [address] Neutrophils/Leukocytes Auto (Bld) [Pure # fraction] 3.5 E9/L Normal 2.0-7.5 [facility] Comment on above: Order Comment: Order Added by Discern Expert. Performed By: #### 2 810698, 7816282, 35023457, 4558634, 1934408, 2446939 ####[facility] [address] [place] [address] BMPon 06-19-2022 Creatinine [Mass/Vol] 0.9 mg/dL Normal 0.5-1.3 [facility] Comment on above: Performed By: #### 2 787380, 3109382, 49077461, 4743967, 2940405, 0836983 ####[facility] [address] [place] [address] Urea nitrogen [Mass/Vol] 23 mg/dL High 5-21 [facility] Comment on above: Performed By: #### 2 754077, 3392432, 92341188, 8242496, 8441992, 3330392 ####[facility] [address] [place] [address] Urea nitrogen/Creatinine [Mass ratio] 26 No Units High 10-20 [facility] Comment on above: Performed By: #### 2 667973, 1165269, 97991272, 7853845, 8461089, 0774247 ####[facility] [address] [place] [address] Anion gap [Moles/Vol] 8 mmol/L Normal 6-16 [facility] Comment on above: Performed By: #### 2 456449, 3783598, 52121094, 1007312, 1252802, 5241925 ####[facility] [address] [place] [address] Calcium [Mass/Vol] 9.3 mg/dL Normal 8.9-11.1 [facility] Comment on above: Performed By: #### 2 725667, 1383298, 35635920, 9593608, 2653947, 5284105 ####[facility] [address] [place] [address] Chloride [Moles/Vol] 104 mmol/L Normal 101-111 [facility] Comment on above: Performed By: #### 2 560747, 4076946, 81253443, 4517471, 2198730, 4283730 ####[facility] [address] [place] [address] CO2 [Moles/Vol] 27 mmol/L Normal 21-31 [facility] Comment on above: Performed By: #### 2 460450, 2192627, 62555256, 9165066, 4911662, 6784496 ####[facility] [address] [place] [address] Glucose [Mass/Vol] 156 mg/dL Normal 55-199 [facility] Comment on above: Result Comment: If t his glucose result represents a fasting glucose, interpretation should refer to the following reference range: 55-99 mg/dL Performed By: #### 2 085002, 7009302, 98670188, 9444261, 1092296, 2367367 ####[facility] [address] [place] [address] Potassium [Moles/Vol] 3.4 mmol/L Low 3.5-5.3 [facility] Comment on above: Performed By: #### 2 963076, 2289578, 01241608, 6545551, 7475088, 7148481 ####[facility] [address] [place] [address] Sodium [Moles/Vol] 136 mmol/L Normal 135-145 [facility] Comment on above: Performed By: #### 2 797708, 3610359, 10890866, 1767128, 3067200, 3852054 ####[facility] [address] [place] [address] CBC w/ Auto Diffon Erythrocyte distribution width (RBC) [Ratio] 13.1 % Normal 10.9-14.2 [facility] Comment on above: Performed By: #### 2 715988, 2286184, 08584520, 9626546, 9430189, 1182738 ####[facility] [address] [place] [address] Hematocrit (Bld) [Volume fraction] 40.1 % Normal 34.0-46.0 [facility] Comment on above: Performed By: #### 2 347674, 4627529, 14959744, 7933390, 2118866, 9341394 ####[address] [address] Hemoglobin (Bld) [Mass/Vol] 13.8 g/dL Normal 12.0-16.0 [facility] Comment on above: Performed By: #### 2 739322, 2843177, 55274728, 6027338, 9600818, 5428793 ####[address] [address] MCH (RBC) [Entitic mass] 30.7 pg Normal 27.0-34.0 [facility] Comment on above: Performed By: #### 2 995144, 7720303, 34822070, 6143422, 1256666, 6834530 ####[address] [address] MCHC (RBC) [Mass/Vol] 34.5 g/dL Normal 31.4-36.0 [facility] Comment on above: Performed By: #### 2 504212, 5964521, 37530858, 9136672, 7961158, 0511020 ####[address] [address] MCV (RBC) [Entitic vol] 89.1 fL Normal 80.0-100.0 [facility] Comment on above: Performed By: #### 2 872486, 9279486, 86973067, 9451127, 2695411, 6438973 ####[address] [address] Platelet mean volume (Bld) [Entitic vol] 6.8 fL Normal 6.4-10.8 [facility] Comment on above: Performed By: #### 2 531368, 8606617, 20957078, 1211843, 6334527, 8071076 ####[address] [address] Platelets (Bld) [#/Vol] 255.0 E9/L Normal 150.0-500. 0 [facility] Comment on above: Performed By: #### 2 359313, 5620732, 75131574, 4716059, 5005890, 2405334 ####[facility] [address] [place] [address] RBC (Bld) [#/Vol] 4.5 E12/L Normal 4.3-5.9 [facility] Comment on above: Performed By: #### 2 889861, 0604285, 73614739, 9553411, 4405812, 1317864 ####[facility] [address] [place] [address] WBC corrected for nucl RBC Auto (Bld) [#/Vol] 6.5 E9/L Normal 4.0-11.0 [facility] Comment on above: Performed By: #### 2 605314, 9479768, 25755090, 9889383, 5855623, 2593362 ####[facility] [address] [place] [address] CT Abdomen/Pelvis w/o Contra ston 06-19-2022 CT Abdomen/Pelvis w/o Contrast Normal [facility] Consent for Treatmenton 05-30 Consent for Treatment [id number]#[id number]:12 7 Normal [facility] Discharge Instructionson Discharge Instructions [id number]#[id number]:1 27 Normal [facility] ED Clinical Summaryon 2021 ED Clinical Summary [facility] ED Note-Physicianon 06-19-20 22 ED Note-Physician Normal [facility] Comment on above: Result Comment: Elec tronically Signed By: Grey Putnam DO\.br\Date and Time Signed: 06/19/22 01:48 EST ED Patient Education Noteon 06-19-2022 ED Patient Education Note Normal [facility] ED Patient Summaryon 022 ED Patient Summary Normal [facility] Hep Func Panelon 06-19-2022 Bilirubin.indirect [Mass or moles/Vol] UTC Abnormal 0.1-0.9 [facility] Comment on above: Result Comment: Resu lt verified by Discern Rule. Performed result UT (Unable to Calculate) was sent as an Alpha code due the inability to calculate a valid numeric value. Performed By: #### 2 992932, 7317923, 23923552, 4371036, 1412026, 6728728 ####[facility] [address] [place] [address] Albumin [Mass/Vol] 4.2 g/dL Normal 3.3-5.0 [facility] Comment on above: Performed By: #### 2 845277, 6529107, 51982903, 4884256, 8986016, 5073956 ####[facility] [address] [place] [address] Albumin/Globulin (S) [Mass conc ratio] 1.1 Normal 1.1-2.2 [facility] Comment on above: Performed By: #### 2 078676, 7061255, 13252034, 7357085, 8452951, 3472750 ####[facility] [address] [place] [address] ALP [Catalytic activity/Vol] 62 Int._Unit/L Normal 21-98 [facility] Comment on above: Performed By: #### 2 591225, 2202728, 17732437, 1068078, 9777151, 4276828 ####[facility] [address] [place] [address] ALT No additional P-5'-P [Catalytic activity/Vol] 14 Int._Unit/L Normal 6-46 [facility] Comment on above: Performed By: #### 2 259987, 5188332, 32940886, 9293128, 4957232, 3557773 ####[facility] [address] [place] [address] AST [Catalytic activity/Vol] 15 Int._Unit/L Normal 5-43 [facility] Comment on above: Performed By: #### 2 464369, 7752622, 38899919, 4736038, 3082259, 0693959 ####[address] [place] [address] Bilirubin [Mass/Vol] 0.8 mg/dL Normal 0.0-1.1 [facility] Comment on above: Performed By: #### 2 812400, 5859694, 40321270, 7704169, 6793986, 7632540 ####[address] [address] Bilirubin.direct [Mass/Vol] mg/dL Normal 0.1-0.4 [facility] Comment on above: Performed By: #### 2 633894, 6647235, 26765381, 7984028, 0922285, 7753186 ####[address] [address] Globulin (S) [Mass/Vol] 3.7 g/dL Normal 1.4-4.0 [facility] Comment on above: Performed By: #### 2 945288, 8714082, 97212607, 3481294, 9079403, 0480209 ####[address] [address] Protein [Mass/Vol] 7.9 g/dL High 6.0-7.8 [facility] Comment on above: Performed By: #### 2 578846, 1264337, 68309730, 9345102, 8742069, 6918152 ####[address] [address] Lipase Levelon 06-19-2022 Lipase [Catalytic activity/Vol] 46 U/L Normal 13-58 [facility] Comment on above: Performed By: #### 2 707795, 6713420, 68827656, 9959729, 4372247, 6962467 ####[address] [place] [address] RAD - Preliminary Cat Scan R eporton 06-19-2022 RAD - Preliminary Cat Scan Report [id number]#[id number]:1 27 Normal [facility] UA With Cult Reflexon 2021 Bacteria LM Ql (Urine sed) 1+ /HPF Abnormal Trace [facility] Comment on above: Performed By: #### 1 8472886, 4631293 ####[facility] [address] [place] [address] Bilirubin Ql (U) Negative Normal Negative [facility] Comment on above: Performed By: #### 1 5686128, 9273376 ####[facility] [address] [place] [address] Clarity (U) CLOUDY Abnormal Clear [facility] Comment on above: Performed By: #### 1 8328106, 3748442 ####[facility] [address] [place] [address] Color (U) DARK YELLO Invalid Interpretation Code [facility] Comment on above: Performed By: #### 1 8192418, 2915734 ####[facility] [address] [place] [address] Epithelial cells.squamous LM.HPF (Urine sed) [#/Area] 5-8 Normal 0-2 [facility] Comment on above: Performed By: #### 1 1225292, 6120431 ####[facility] [address] [place] [address] Glucose Test strip (U) [Mass/Vol] Negative Normal Negative [facility] Comment on above: Performed By: #### 1 0199963, 3269116 ####[facility] [address] [place] [address] Hemoglobin Ql (U) 3+ Abnormal Negative [facility] Comment on above: Performed By: #### 1 6719337, 5031402 ####[facility] [address] [place] [address] Ketones (U) [Mass/Vol] Negative Normal Negative [facility] Comment on above: Performed By: #### 1 7744623, 1438316 ####[facility] [address] [place] [address] [place].plasma/[place] .RBC (Bld) [Mass ratio] 21-30 Abnormal 0-3 [facility] Comment on above: Performed By: #### 1 3779260, 7138205 ####[facility] [address] [place] [address] Nitrite Ql (U) Negative Normal Negative [facility] Comment on above: Performed By: #### 1 0210746, 8425513 ####[address] [address] pH (U) 5.5 [pH] Invalid Interpretation Code 5.0-9.0 [facility] Comment on above: Performed By: #### 1 6864146, 1869164 ####[address] [address] Protein (U) [Mass/Vol] TRACE Abnormal Negative [facility] Comment on above: Performed By: #### 1 2542941, 3035241 ####[address] [address] Specific gravity (U) [Rel density] >=1.030 Invalid Interpretation Code 1.005-1.03 0 [facility] Comment on above: Performed By: #### 1 4120226, 6447887 ####[address] [address] Type of Urine collection method Clean Catch Normal [facility] Comment on above: Performed By: #### 1 2130839, 7966701 ####[address] [address] Urobilinogen Qn (U) 1.0 {Diaz'U}/dL Normal 0.0-1.0 [facility] Comment on above: Performed By: #### 1 4534265, 0518570 ####[facility] [address] [place] [address] WBC Auto Ql (U) TRACE Abnormal Negative [facility] Comment on above: Performed By: #### 1 5192183, 0908142 ####[facility] [address] [place] [address] WBC LM.HPF (Urine sed) [#/Area] 6-15 Abnormal 0-5 [facility] Comment on above: Performed By: #### 1 9392112, 9970785 ####[facility] [address] [place] [address] eGFRon 06-19-2022 GFR/1.73 sq M.predicted among blacks MDRD (S/P/Bld) [Vol rate/Area] mL/min/{1.73_m2} Normal >=59 [facility] Comment on above: Order Comment: Order added by Discern Expert. Result Comment: eGFR is race adjusted. AA=. Performed By: #### 2 701079, 7678388, 04150369, 2205650, 8744619, 3300139 ####[facility] [address] [place] [address] GFR/1.73 sq M.predicted among non-blacks MDRD (S/P/Bld) [Vol rate/Area] mL/min/{1.73_m2} Normal >=59 [facility] Comment on above: Order Comment: Order added by Discern Expert. Result Comment: [employer] aiyana kidney disease could be indicated at eGFR's of less than 60 mL/min/1.73m2. Kidney failure is indicated at less than 15 mL/min/1.73m2. Performed By: #### 2 481205, 2246671, 16860024, 4724545, 0222419, 2789757 ####[facility] [address] [place] [address] CHEMISTRYOrdered By: SYSTEM SYSTEM on 06-18-2022 Albumin [Mass/Vol] 4.2 g/dL Normal 3.3 - 5.0 gm/dL [facility] Albumin/Globulin [Mass ratio] 1.1 {ratio} Normal 1.1 - 2.2 [facility] ALP [Catalytic activity/Vol] 62 [iU]/d Normal 21 - 98 Int._Unit/ L [facility] ALT No additional P-5'-P [Catalytic activity/Vol] 14 [iU]/d Normal 6 - 46 Int._Unit/ L [facility] Anion gap [Moles/Vol] 8 mmol/L Normal 6 - 16 mEq/L [facility] AST [Catalytic activity/Vol] 15 [iU]/d Normal 5 - 43 Int._Unit/ L [facility] Bilirubin [Mass/Vol] 0.8 mg/dL Normal 0.0 - 1 .1 mg/dL [facility] Bilirubin.direct [Mass/Vol] mg/dL Normal 0.1 - 0.4 mg/dL [facility] Bilirubin.indirect [Mass or moles/Vol] Unable to Calculate mg/dL Invalid Interpretation Code 0.1 - 0.9 mg/dL [facility] Calcium [Mass/Vol] 9.3 mg/dL Normal 8.9 - 11. 1 mg/dL [facility] Chloride [Moles/Vol] 104 mmol/L Normal 101 - 1 11 mmol/L [facility] CO2 [Moles/Vol] 27 mmol/L Normal 21 - 31 mmol/L [facility] Creatinine [Mass/Vol] 0.9 mg/dL Normal 0.5 - 1.3 mg/dL [facility] GFR/1.73 sq M.predicted among blacks MDRD (S/P/Bld) [Vol rate/Area] mL/min/1.73 m2 Normal >=59mL/min /1.73 m2 [facility] Chem S GFR/1.73 sq M.predicted among non-blacks MDRD (S/P/Bld) [Vol rate/Area] mL/min/1.73 m2 Normal >=59mL/min /1.73 m2 [facility] Chem S Globulin (S) [Mass/Vol] 3.7 g/dL Normal 1.4 - 4.0 gm/dL [facility] Glucose [Mass/Vol] 156 mg/dL Normal 55 - 199 mg/dL [facility] Lipase [Catalytic activity/Vol] 46 U/L Normal 13 - 58 unit/L [facility] Potassium [Moles/Vol] 3.4 mmol/L Low 3.5 - 5.3 mmol/L [facility] Protein [Mass/Vol] 7.9 g/dL High 6.0 - 7.8 gm/dL [facility] Sodium [Moles/Vol] 136 mmol/L Normal 135 - 145 mmol/L [facility] Urea nitrogen [Mass/Vol] 23 mg/dL High 5 - 21 mg/dL [facility] Urea nitrogen/Creatinine [Mass ratio] 26 mg/mg High 10 - 20 [facility] HEMATOLOGYOrdered By: SYSTEM SYSTEM on 06-18-2022 Basophils/100 WBC (Bld) 0.9 % Normal 0.0 - 2.0 % [facility] HemeAutoSS Basophils/Leukocytes Auto (Bld) [Pure # fraction] 0.1 E9/L Normal 0.0 - 0.2 E9/L [facility] HemeAutoSS Eosinophils/100 WBC (Bld) 5.5 % Normal 0.0 - 8.0 % [facility] HemeAutoSS Eosinophils/Leukocytes Auto (Bld) [Pure # fraction] 0.4 E9/L Normal 0.0 - 0.5 E9/L [facility] HemeAutoSS Lymphocytes/100 WBC (Bld) 31.7 % Normal 14.0 - 50.0 % [facility] HemeAutoSS Lymphocytes/Leukocytes Auto (Bld) [Pure # fraction] 2.1 E9/L Normal 1.0 - 4.0 E9/L [facility] HemeAutoSS Monocytes/100 WBC (Bld) 7.6 % Normal 4.0 - 14.0 % [facility] HemeAutoSS Monocytes/Leukocytes Auto (Bld) [Pure # fraction] 0.5 E9/L Normal 0.2 - 1.0 E9/L [facility]eAutoSS Neutrophils/100 WBC (Bld) 54.3 % Normal 36.0 - 75.0 % [facility] HemeAutoSS Neutrophils/Leukocytes Auto (Bld) [Pure # fraction] 3.5 E9/L Normal 2.0 - 7.5 E9/L [facility] HemeAutoSS HEMATOLOGYOrdered By: Janice Cruz on 06-18-2022 Erythrocyte distribution width (RBC) [Ratio] 13.1 % Normal 10.9 - 14.2 % [facility]eAutoSS Hematocrit (Bld) [Volume fraction] 40.1 % Normal 34.0 - 46.0 % [facility]eAutoSS Hemoglobin (Bld) [Mass/Vol] 13.8 g/dL Normal 12.0 - 16.0 gm/dL [facility] HemeAutoSS MCH (RBC) [Entitic mass] 30.7 pg Normal 27.0 - 34.0 pg [facility]eAutoSS MCHC (RBC) [Mass/Vol] 34.5 g/dL Normal 31.4 - 36.0 gm/dL [facility]eAutoSS MCV (RBC) [Entitic vol] 89.1 fL Normal 80.0 - 100.0 fL [facility]eAutoSS Platelet mean volume (Bld) [Entitic vol] 6.8 fL Normal 6.4 - 10.8 fL [facility] HemeAutoSS Platelets (Bld) [#/Vol] 255.0 E9/L Normal 150.0 - 500.0 E9/L [facility]eAutoSS RBC (Bld) [#/Vol] 4.5 E12/L Normal 4.3 - 5.9 E12/L [facility]eAutoSS WBC corrected for nucl RBC Auto (Bld) [#/Vol] 6.5 E9/L Normal 4.0 - 11.0 E9/L [facility] HemeAutoSS URINALYSISOrdered By: Janice Cruz on 06-18-2022 Bacteria LM Ql (Urine sed) 1+ /HPF Invalid Interpretation Code Trace/HPF [facility] UA Auto SS Bilirubin Ql (U) Negative (06/18/22 10:36 PM) Normal Negative [facility] UA Auto SS Clarity (U) Cloudy *ABN* (06/18/22 10:36 PM) Invalid Interpretation Code Clear [facility] UA Auto SS Color (U) DARK YELLO Invalid Interpretation Code [facility] UA Auto SS Epithelial cells.squamous LM.HPF (Urine sed) [#/Area] 5-8 /HPF Normal 0-2/HPF [facility] UA Aut o SS Glucose Test strip (U) [Mass/Vol] Negative (06/18/22 10:36 PM) Normal Negative [facility] UA Auto SS Hemoglobin Ql (U) 3+ *ABN* (06/18/22 10:36 PM) Invalid Interpretation Code Negative [facility] UA Auto SS Ketones (U) [Mass/Vol] Negative (06/18/22 10:36 PM) Normal Negative [facility] UA Auto SS [place].plasma/[place] .RBC (Bld) [Mass ratio] 21-30 /HPF Invalid Interpretation Code 0-3/HPF [facility] UA Auto SS Nitrite Ql (U) Negative (06/18/22 10:36 PM) Normal Negative [facility] UA Auto SS pH (U) 5.5 *NA* (06/18/22 10:36 PM) Invalid Interpretation Code 5.0 - 9.0 [facility] UA Auto SS Protein (U) [Mass/Vol] Trace *ABN* (06/18/22 10:36 PM) Invalid Interpretation Code Negative [facility] UA Auto SS Specific gravity (U) [Rel density] >=1.030 *NA* (06/18/22 10:36 PM) Invalid Interpretation Code 1.005 - 1.030 [facility] UA Auto SS UA Spec Desc Clean Catch (06/18/22 10:36 PM) Normal [facility] UA Auto SS Urobilinogen Qn (U) 1.8915888 {Diaz'U}/dL Normal 0.0 - 1.0 EU/dL [facility] UA Auto SS WBC Auto Ql (U) Trace *ABN* (06/18/22 10:36 PM) Invalid Interpretation Code Negative [facility] UA Auto SS WBC LM.HPF (Urine sed) [#/Area] 6-15 /HPF Invalid Interpretation Code 0-5/HPF [facility] UA Auto SS Glucose Glucometer (BldC) [M ass/Vol]Ordered By: Tim Feng on 06-09-2022 Glucose [Mass/Vol] 99 mg/dL [facility] Comment on above: Random Glucose Refer ence Range is dependent on time and content of last meal. Glucose of more than 200 mg/dL in a nonstressed, ambulatory subject supports the diagnosis of Diabetes Mellitus. Automated erythrocytes count in urine sediment (number/area)Ordered By: Tim Feng on 06-08-2022 RBC Auto (Urine sed) [#/Area] Innumerable [HPF] 0-4 [facility] Automated leukocytes count i n urine sediment (number/area)Ordered By: Tim Feng on 06-08-2022 WBC Auto (Urine sed) [#/Area] 20-49 [HPF] 0-4 [facility] Basophils Auto (Bld) [#/Vol] Ordered By: Tim Feng on 06-08-2022 Basophils (Bld) [#/Vol] 0.1 10*3/uL 0.0-0.2 [facility] Basophils/100 WBC Auto (Bld) Ordered By: Tim Feng on 06-08-2022 Basophils/100 WBC (Bld) 1.1 % . [facility] Bilirubin Test strip Ql (U)O rdered By: Tim Feng on 06-08-2022 Bilirubin Ql (U) Negative Negative [facility] Body fluid albumin measureme nt (mass/volume)Ordered By: Tim Feng on 06-08-2022 Albumin (Body fld) [Mass/Vol] 4.1 g/dL 3.2-5.5 [facility] Color Auto (U)Ordered By: Tyrone Feng on 06-08-2022 Color (U) Yellow Yellow [facility] Creatinine and Glomerular fi ltration rate.predicted panel (S/P/Bld)Ordered By: Tim Feng on 06-08-2022 Creatinine [Mass/Vol] 0.64 mg/dL 0.44-1.03 [facility] Direct bilirubin measurement Ordered By: Tim Feng on 06-08-2022 Bilirubin.direct [Mass/Vol] mg/dL 0.0-0.4 [facility] Eosinophils Auto (Bld) [#/Vo l]Ordered By: Tim Feng on 06-08-2022 Eosinophils (Bld) [#/Vol] 1.1 10*3/uL 0.0-0.45 [facility] Eosinophils/100 WBC Auto (Bl d)Ordered By: Tim Feng on 06-08-2022 Eosinophils/100 WBC (Bld) 14.8 % . [facility] Erythrocyte distribution wid th Auto (RBC) [Ratio]Ordered By: Tim Feng on 06-08-2022 Erythrocyte distribution width (RBC) [Ratio] 12.9 % 11.9-15.3 [facility] Estimated glomerular filtrat ion rate (GFR) non- AmericanOrdered By: Tim Feng on 06-08-2022 GFR/1.73 sq M.predicted among non-blacks MDRD (S/P/Bld) [Vol rate/Area] > 60 mL/Min [facility] Globulin Calc (S) [Mass/Vol] Ordered By: Tim Feng on 06-08-2022 Globulin (S) [Mass/Vol] 3.7 g/dL [facility] HCG ( test) IA.rapi d Ql (U)Ordered By: Tim Feng on 06-08-2022 HCG ( test) Ql (U) Negative [facility] Hematocrit Auto (Bld) [Volum e fraction]Ordered By: Tim Feng on 06-08-2022 Hematocrit (Bld) [Volume fraction] 41.9 % 34.0-46.4 [facility] Hemoglobin [Mass/volume] in BloodOrdered By: Tim Feng on 06-08-2022 Hemoglobin (Bld) [Mass/Vol] 14.1 g/dL 11.8-15.4 [facility] Ketones Auto test strip (U) [Mass/Vol]Ordered By: Tim Feng on 06-08-2022 Ketones (U) [Mass/Vol] Negative Negative [facility] - Chemistry and C hemistry - challengeOrdered By: Tim Feng on 06-08-2022 Lipase [Catalytic activity/Vol] 42.0 U/L 22-51 [facility] - UrinalysisOrder ed By: Tim Feng on 06-08-2022 Hyaline casts LM Ql (Urine sed) 0-8 [LPF] 0-8 [facility] Leukocytes [#/volume] correc suzanne for nucleated erythrocytes in Blood by Automated counOrdered By: Tim Feng on 06-08-2022 WBC corrected for nucl RBC Auto (Bld) [#/Vol] 7.5 10*3/uL 3.8-11.6 [facility] Lymphocytes Auto (Bld) [#/Vo l]Ordered By: Tim Feng on 06-08-2022 Lymphocytes (Bld) [#/Vol] 2.2 10*3/uL 1.00-4.8 [facility] Lymphocytes/100 WBC Auto (Bl d)Ordered By: Tim Feng on 06-08-2022 Lymphocytes/100 WBC (Bld) 29.7 % . [facility] MCH Auto (RBC) [Entitic mass ]Ordered By: Tim Feng on 06-08-2022 MCH (RBC) [Entitic mass] 30.0 pg 24.7-34.3 [facility] MCHC Auto (RBC) [Mass/Vol]Or dered By: Tim Feng on 06-08-2022 MCHC (RBC) [Mass/Vol] 33.6 g/dL 32.0-35.0 [facility] MCV Auto (RBC) [Entitic vol] Ordered By: Tim Feng on 06-08-2022 MCV (RBC) [Entitic vol] 89.2 fL 80-100 [facility] Monocyte distribution width [Entitic volume] in Blood by AutomatedOrdered By: Tim Feng on 06-08-2022 Monocyte distribution width Auto (Bld) [Entitic vol] 17.42 % 0.00-20.00 [facility] Monocytes Auto (Bld) [#/Vol] Ordered By: Tim Feng on 06-08-2022 Monocytes (Bld) [#/Vol] 0.5 10*3/uL 0.0-0.8 [facility] Monocytes/100 WBC Auto (Bld) Ordered By: Tim Feng on 06-08-2022 Monocytes/100 WBC (Bld) 7.3 % . [facility] Neutrophils Auto (Bld) [#/Vo l]Ordered By: Tim Feng on 06-08-2022 Neutrophils (Bld) [#/Vol] 3.6 10*3/uL 1.8-7.7 [facility] Neutrophils/100 WBC Auto (Bl d)Ordered By: Tim Feng on 06-08-2022 Neutrophils/100 WBC (Bld) 47.1 % . [facility] Nitrite Test strip Ql (U)Ord ered By: Tim Feng on 06-08-2022 Nitrite Ql (U) Negative Negative [facility] No Panel InformationOrdered By: Tim Feng on 06-08-2022 Bedside Glucose #2 Comment Will notify /shalom [facility] Bedside Glucose Comment See comment [facility] Comment on above: Glu2: FOLLOW HYPOGLY CEMIC See comment [facility] Will notify /shalom [facility] Estimated GFR () > 60 mL/Min [facility] Comment on above: GFR estimated refere nce range: According to KDOQI guidelines, <60 ml/min/1.73m2 is sufficient to diagnose a patient with chronic kidney disease. Pharmacy Creatinine Clearance (Chem 141.63 [facility] > 60 mL/Min [facility] 42.0 U/L 22-51 [facility] 141.63 [facility] 0-8 [LPF] 0-8 [facility] Nucleated erythrocytes [Pres ence] in Blood by Automated countOrdered By: Tim Feng on 06-08-2022 Nucleated RBC Auto Ql (Bld) 0.1 /100{WBC} 0-0.5 [facility] Platelet mean volume Auto (B ld) [Entitic vol]Ordered By: Tim Feng on 06-08-2022 Platelet mean volume (Bld) [Entitic vol] 6.9 fL 6.3-10.7 [facility] Platelets Auto (Bld) [#/Vol] Ordered By: Tim Feng on 06-08-2022 Platelets (Bld) [#/Vol] 268 10*3/uL 150-450 [facility] Protein Auto test strip (U) [Mass/Vol]Ordered By: Tim Feng on 06-08-2022 Protein (U) [Mass/Vol] Negative Negative [facility] Protein [Mass/volume] in Ser um or PlasmaOrdered By: Tim Feng on 06-08-2022 Protein [Mass/Vol] 7.8 g/dL 6.1-7.9 [facility] RBC Auto (Bld) [#/Vol]Ordere d By: Tim Feng on 06-08-2022 RBC (Bld) [#/Vol] 4.69 10*6/uL 3.60-5.00 [facility] Serum or plasma alanine slaughter otransferase measurement without P-5'-P (enzymatic activiOrdered By: Tim Feng on 06-08-2022 ALT No additional P-5'-P [Catalytic activity/Vol] 14 U/L 10-60 [facility] Serum or plasma albumin/glob ulin mass ratioOrdered By: Tim Feng on 06-08-2022 Albumin/Globulin [Mass ratio] 1.1 {ratio} [facility] Serum or plasma alkaline shelby sphatase measurement (enzymatic activity/volume)Ordered By: Tim Feng on 06-08-2022 ALP [Catalytic activity/Vol] 60 U/L 32-92 [facility] Serum or plasma anion gap de terminationOrdered By: Tim Feng on 06-08-2022 Anion gap [Moles/Vol] 13.8 mmol/L 6.0-15.0 [facility] Serum or plasma aspartate am inotransferase measurement (enzymatic activity/volume)Ordered By: Tim Feng on 06-08-2022 AST [Catalytic activity/Vol] 17 U/L 10-42 [facility] Serum or plasma calcium jesse urement (mass/volume)Ordered By: Tim Feng on 06-08-2022 Calcium [Mass/Vol] 9.7 mg/dL 8.2-10.2 [facility] Serum or plasma chloride marcia surement (moles/volume)Ordered By: Tim Feng on 06-08-2022 Chloride [Moles/Vol] 101 mmol/L 95-114 [facility] Serum or plasma creatinine m easurement with calculation of estimated glomerular filtrOrdered By: Tim Feng on 06-08-2022 Creatinine and Glomerular filtration rate.predicted panel (S/P/Bld) 0.64 mg/dL 0.44-1.03 [facility] Serum or plasma glucose jesse urement (mass/volume)Ordered By: Tim Feng on 06-08-2022 Glucose [Mass/Vol] 47 mg/dL 70-100 [facility] Comment on above: Results calledat 230 1 on 06/08/22 ADA recommended reference rangeRandom Glucose Reference Range is dependent on time and content of last meal. Glucose of more than 200 mg/dL in a nonstressed, ambulatory subject supports the diagnosis of Diabetes Mellitus. Serum or plasma non-glucuron idated bilirubin measurement (mass/volume)Ordered By: Tim Feng on 06-08-2022 Bilirubin.indirect [Mass/Vol] TNP [facility] Comment on above: Test not performed Serum or plasma potassium me asurement (moles/volume)Ordered By: Tim Feng on 06-08-2022 Potassium [Moles/Vol] 4.1 mmol/L 3.5-5.1 [facility] Serum or plasma sodium measu rement (moles/volume)Ordered By: Tim Feng on 06-08-2022 Sodium [Moles/Vol] 139 mmol/L 136-146 [facility] Serum or plasma total biliru bin measurement (mass/volume)Ordered By: Tim Feng on 06-08-2022 Bilirubin [Mass/Vol] 0.5 mg/dL 0.3-1.2 [facility] Serum or plasma total carbon dioxide measurement (moles/volume)Ordered By: Tim Feng on 06-08-2022 CO2 [Moles/Vol] 28.3 mmol/L 22.0-30.0 [facility] Serum or plasma urea nitroge n measurement (mass/volume)Ordered By: Tim Feng on 06-08-2022 Urea nitrogen [Mass/Vol] 18 mg/dL 9-23 [facility] Specific gravity Auto test s trip (U) [Rel density]Ordered By: Tim Feng on 06-08-2022 Specific gravity (U) [Rel density] 1.026 1.001-1.[address] [facility] Squamous epithelial cells de tection in urine sediment by light microscopyOrdered By: Tim Feng on 06-08-2022 Epithelial cells.squamous LM Ql (Urine sed) 5-9 [HPF] 0-2 [facility] Urine bacteria detection by automated methodOrdered By: Tim Feng on 06-08-2022 Bacteria Auto Ql (U) None seen None Seen [facility] Urine clarity by refractomet ry automatedOrdered By: Tim Feng on 06-08-2022 Clarity Refractometry automated (U) Cloudy Clear [facility] Urine culture routineOrdered By: Tim Feng on 06-08-2022 Bacteria identified Cx Nom (U) [address] [facility] Urine glucose measurement by automated test strip (mass/volume)Ordered By: Tim Feng on 06-08-2022 Glucose Auto test strip (U) [Mass/Vol] Normal mg/dL Normal [facility] Urine hemoglobin detection b y automated test stripOrdered By: Tim Feng on 06-08-2022 Hemoglobin Auto test strip Ql (U) 3+ Negative [facility] Urine leukocyte esterase det ection by automated test stripOrdered By: Tim Feng on 06-08-2022 Leukocyte esterase Auto test strip Ql (U) 3+ Negative [facility] Urobilinogen Auto test strip (U) [Mass/Vol]Ordered By: Tim Feng on 06-08-2022 Urobilinogen (U) [Mass/Vol] Normal mg/dL Normal [facility] WBC Auto (Bld) [#/Vol]Ordere d By: Tim Feng on 06-08-2022 WBC (Bld) [#/Vol] 7.5 10*3/uL 3.8-11.6 [facility] pH Auto test strip (U)Ordere d By: Tim Feng on 06-08-2022 pH (U) 5.5 [pH] 5.0-9.0 [facility] Glucose Glucometer (dC) [M ass/Vol]Ordered By: Tristan Pyle on 05-28-2022 Glucose [Mass/Vol] 66 mg/dL [facility] Comment on above: Random Glucose Refer ence Range is dependent on time and content of last meal. Glucose of more than 200 mg/dL in a nonstressed, ambulatory subject supports the diagnosis of Diabetes Mellitus. No Panel InformationOrdered By: Tristan Pyle on 05-28-2022 Bedside Glucose #[address] [facility] Bedside Glucose Comment See comment [facility] Comment on above: Glu2: FOLLOW HYPOGLY CEMIC Automated erythrocytes count in urine sediment (number/area)Ordered By: Tristan Pyle on 05-27-2022 RBC Auto (Urine sed) [#/Area] Innumerable [HPF] 0-4 [facility] Automated leukocytes count i n urine sediment (number/area)Ordered By: Tristan Pyle on 05-27-2022 WBC Auto (Urine sed) [#/Area] 3-4 [HPF] 0-4 [facility] Basophils Auto (Bld) [#/Vol] Ordered By: Tristan Pyle on 05-27-2022 Basophils (Bld) [#/Vol] 0.1 10*3/uL 0.0-0.2 [facility] Basophils/100 WBC Auto (Bld) Ordered By: Tristan Pyle on 05-27-2022 Basophils/100 WBC (Bld) 0.8 % . [facility] Bilirubin Test strip Ql (U)O rdered By: Tristan Pyle on 05-27-2022 Bilirubin Ql (U) Negative Negative [facility] Body fluid albumin measureme nt (mass/volume)Ordered By: Tristan Pyle on 05-27-2022 Albumin (Body fld) [Mass/Vol] 4.8 g/dL 3.2-5.5 [facility] Color Auto (U)Ordered By: Fabio red Lashanda on 05-27-2022 Color (U) Yellow Yellow [facility] Creatinine and Glomerular fi ltration rate.predicted panel (S/P/Bld)Ordered By: Tristan Pyle on 05-27-2022 Creatinine [Mass/Vol] 0.73 mg/dL 0.44-1.03 [facility] Eosinophils Auto (Bld) [#/Vo l]Ordered By: Tristan Pyle on 05-27-2022 Eosinophils (Bld) [#/Vol] 0.6 10*3/uL 0.0-0.45 [facility] Eosinophils/100 WBC Auto (Bl d)Ordered By: Tristan Pyle on 05-27-2022 Eosinophils/100 WBC (Bld) 6.4 % . [facility] Erythrocyte distribution wid th Auto (RBC) [Ratio]Ordered By: Tristan Pyle on 05-27-2022 Erythrocyte distribution width (RBC) [Ratio] 13.1 % 11.9-15.3 [facility] Estimated glomerular filtrat ion rate (GFR) non- AmericanOrdered By: Tristan Pyle on 05-27-2022 GFR/1.73 sq M.predicted among non-blacks MDRD (S/P/Bld) [Vol rate/Area] > 60 mL/Min [facility] Globulin Calc (S) [Mass/Vol] Ordered By: Tristan Pyle on 05-27-2022 Globulin (S) [Mass/Vol] 4.1 g/dL [facility] Hematocrit Auto (Bld) [Volum e fraction]Ordered By: Tristan Pyle on 05-27-2022 Hematocrit (Bld) [Volume fraction] 45.9 % 34.0-46.4 [facility] Hemoglobin [Mass/volume] in BloodOrdered By: Tristan Pyle on 05-27-2022 Hemoglobin (Bld) [Mass/Vol] 15.9 g/dL 11.8-15.4 [facility] Ketones Auto test strip (U) [Mass/Vol]Ordered By: Tristan Pyle on 05-27-2022 Ketones (U) [Mass/Vol] Negative Negative [facility] - Chemistry and C hemistry - challengeOrdered By: Tristan Pyle on 05-27-2022 Lipase [Catalytic activity/Vol] 39.0 U/L 22-51 [facility] Laboratory - UrinalysisOrder ed By: Tristan Pyle on 05-27-2022 Hyaline casts LM Ql (Urine sed) 0-8 [LPF] 0-8 [facility] Leukocytes [#/volume] correc suzanne for nucleated erythrocytes in Blood by Automated counOrdered By: Tristan Pyle on 05-27-2022 WBC corrected for nucl RBC Auto (Bld) [#/Vol] 9.1 10*3/uL 3.8-11.6 [facility] Lymphocytes Auto (Bld) [#/Vo l]Ordered By: Tristan Pyle on 05-27-2022 Lymphocytes (Bld) [#/Vol] 2.5 10*3/uL 1.00-4.8 [facility] Lymphocytes/100 WBC Auto (Bl d)Ordered By: Tristan Pyle on 05-27-2022 Lymphocytes/100 WBC (Bld) 27.9 % . [facility] MCH Auto (RBC) [Entitic mass ]Ordered By: Tristan Pyle on 05-27-2022 MCH (RBC) [Entitic mass] 30.6 pg 24.7-34.3 [facility] MCHC Auto (RBC) [Mass/Vol]Or dered By: Tristan Pyle on 05-27-2022 MCHC (RBC) [Mass/Vol] 34.6 g/dL 32.0-35.0 [facility] MCV Auto (RBC) [Entitic vol] Ordered By: Tristan Pyle on 05-27-2022 MCV (RBC) [Entitic vol] 88.5 fL 80-100 [facility] Monocyte distribution width [Entitic volume] in Blood by AutomatedOrdered By: Tristan Pyle on 05-27-2022 Monocyte distribution width Auto (Bld) [Entitic vol] 19.37 % 0.00-20.00 [facility] Monocytes Auto (Bld) [#/Vol] Ordered By: Tristan Pyle on 05-27-2022 Monocytes (Bld) [#/Vol] 0.7 10*3/uL 0.0-0.8 [facility] Monocytes/100 WBC Auto (Bld) Ordered By: Tristan Pyle on 05-27-2022 Monocytes/100 WBC (Bld) 7.2 % . [facility] Neutrophils Auto (Bld) [#/Vo l]Ordered By: Tristan Pyle on 05-27-2022 Neutrophils (Bld) [#/Vol] 5.3 10*3/uL 1.8-7.7 [facility] Neutrophils/100 WBC Auto (Bl d)Ordered By: Tristan Pyle on 05-27-2022 Neutrophils/100 WBC (Bld) 57.7 % . [facility] Nitrite Test strip Ql (U)Ord ered By: Tristan Pyle on 05-27-2022 Nitrite Ql (U) Negative Negative [facility] No Panel InformationOrdered By: Tristan Pyle on 05-27-2022 Estimated GFR () > 60 mL/Min [facility] Comment on above: GFR estimated refere nce range: According to KDOQI guidelines, <60 ml/min/1.73m2 is sufficient to diagnose a patient with chronic kidney disease. Pharmacy Creatinine Clearance (Chem 123.36 [facility] Nucleated erythrocytes [Pres ence] in Blood by Automated countOrdered By: Tristan Pyle on 05-27-2022 Nucleated RBC Auto Ql (Bld) 0.2 /100{WBC} 0-0.5 [facility] Platelet mean volume Auto (B ld) [Entitic vol]Ordered By: Tristan Pyle on 05-27-2022 Platelet mean volume (Bld) [Entitic vol] 6.9 fL 6.3-10.7 [facility] Platelets Auto (Bld) [#/Vol] Ordered By: Tristan Pyle on 05-27-2022 Platelets (Bld) [#/Vol] 311 10*3/uL 150-450 [facility] Protein Auto test strip (U) [Mass/Vol]Ordered By: Tristan Pyle on 05-27-2022 Protein (U) [Mass/Vol] Negative Negative [facility] Protein [Mass/volume] in Ser um or PlasmaOrdered By: Tristan Pyle on 05-27-2022 Protein [Mass/Vol] 8.9 g/dL 6.1-7.9 [facility] RBC Auto (Bld) [#/Vol]Ordere d By: Tristan Pyle on 05-27-2022 RBC (Bld) [#/Vol] 5.19 10*6/uL 3.60-5.00 [facility] Serum or plasma alanine slaughter otransferase measurement without P-5'-P (enzymatic activiOrdered By: Tristan Pyle on 05-27-2022 ALT No additional P-5'-P [Catalytic activity/Vol] 13 U/L 10-60 [facility] Serum or plasma albumin/glob ulin mass ratioOrdered By: Tristan Pyle on 05-27-2022 Albumin/Globulin [Mass ratio] 1.2 {ratio} [facility] Serum or plasma alkaline shelby sphatase measurement (enzymatic activity/volume)Ordered By: Tristan Pyle on 05-27-2022 ALP [Catalytic activity/Vol] 68 U/L 32-92 [facility] Serum or plasma anion gap de terminationOrdered By: Tristan Pyle on 05-27-2022 Anion gap [Moles/Vol] 13.1 mmol/L 6.0-15.0 [facility] Serum or plasma aspartate am inotransferase measurement (enzymatic activity/volume)Ordered By: Tristan Pyle on 05-27-2022 AST [Catalytic activity/Vol] 16 U/L 10-42 [facility] Serum or plasma calcium jesse urement (mass/volume)Ordered By: Tristan Pyle on 05-27-2022 Calcium [Mass/Vol] 10.4 mg/dL 8.2-10.2 [facility] Serum or plasma chloride marcia surement (moles/volume)Ordered By: Tristan Pyle on 05-27-2022 Chloride [Moles/Vol] 102 mmol/L 95-114 [facility] Serum or plasma glucose jesse urement (mass/volume)Ordered By: Tristan Pyle on 05-27-2022 Glucose [Mass/Vol] 49 mg/dL 70-100 [facility] Comment on above: Critical valueresult calledat 2326 on 05/27/22ADA recommended reference rangeRandom Glucose Reference Range is dependent on time and content of last meal. Glucose of more than 200 mg/dL in a nonstressed, ambulatory subject supports the diagnosis of Diabetes Mellitus. Serum or plasma potassium me asurement (moles/volume)Ordered By: Tristan Pyle on 05-27-2022 Potassium [Moles/Vol] 3.2 mmol/L 3.5-5.1 [facility] Serum or plasma sodium measu rement (moles/volume)Ordered By: Tristan Pyle on 05-27-2022 Sodium [Moles/Vol] 139 mmol/L 136-146 [facility] Serum or plasma total biliru bin measurement (mass/volume)Ordered By: Tristan Pyle on 05-27-2022 Bilirubin [Mass/Vol] 0.7 mg/dL 0.3-1.2 [facility] Serum or plasma total carbon dioxide measurement (moles/volume)Ordered By: Tristan Pyle on 05-27-2022 CO2 [Moles/Vol] 27.1 mmol/L 22.0-30.0 [facility] Serum or plasma urea nitroge n measurement (mass/volume)Ordered By: Tristan Pyle on 05-27-2022 Urea nitrogen [Mass/Vol] 16 mg/dL 9-23 [facility] Specific gravity Auto test s trip (U) [Rel density]Ordered By: Tristan Pyle on 05-27-2022 Specific gravity (U) [Rel density] 1.020 1.001-1.[address] [facility] Squamous epithelial cells de tection in urine sediment by light microscopyOrdered By: Tristan Pyle on 05-27-2022 Epithelial cells.squamous LM Ql (Urine sed) 0-1 [HPF] 0-2 [facility] Urine bacteria detection by automated methodOrdered By: Tristan Pyle on 05-27-2022 Bacteria Auto Ql (U) None seen None Seen [facility] Urine clarity by refractomet ry automatedOrdered By: Tristan Pyle on 05-27-2022 Clarity Refractometry automated (U) Clear Clear [facility] Urine glucose measurement by automated test strip (mass/volume)Ordered By: Tristan Pyle on 05-27-2022 Glucose Auto test strip (U) [Mass/Vol] Normal mg/dL Normal [facility] Urine hemoglobin detection b y automated test stripOrdered By: Tristan Pyle on 05-27-2022 Hemoglobin Auto test strip Ql (U) 3+ Negative [facility] Urine leukocyte esterase det ection by automated test stripOrdered By: Tristan Pyle on 05-27-2022 Leukocyte esterase Auto test strip Ql (U) 1+ Negative [facility] Urobilinogen Auto test strip (U) [Mass/Vol]Ordered By: Tristan Pyle on 05-27-2022 Urobilinogen (U) [Mass/Vol] Normal mg/dL Normal [facility] WBC Auto (Bld) [#/Vol]Ordere d By: Tristan Pyle on 05-27-2022 WBC (Bld) [#/Vol] 9.1 10*3/uL 3.8-11.6 [facility] pH Auto test strip (U)Ordere d By: Tristan Pyle on 05-27-2022 pH (U) 5.0 [pH] 5.0-9.0 [facility] CT KIDNEY STONEon 05-14-2022 CT KIDNEY STONE EXAMINATION: CT KIDNEY STONE HISTORY: ORDERING SYSTEM PROVIDED HISTORY: Flank pain, hx of stones. TECHNOLOGIST PROVIDED HISTORY: Illness/Other Reason for Exam: Flank pain, hx: kidney stones Encounter Type: Unknown Additional Signs and Symptoms: Unknown ORDERING SYSTEM PROVIDED DIAGNOSIS CODES: COMPARISON: CT abdomen and pelvis, 01/18/2022. TECHNIQUE: Dose reduction techniques were achieved by using automated exposure control and/or adjustment of mA and/or kV according to patient size and/or use of iterative reconstruction technique. FINDINGS: The evaluation is limited secondary to patient motion. : Adrenal Glands: Normal noncontrast appearance. Kidneys and Ureters: 2 mm nonobstructing calculus in the right interpolar kidney. No evident left nephrolithiasis. Phleboliths are noted immediately adjacent to the proximal right ovarian vein and along its mid course. Urinary Bladder: Underdistended, which limits evaluation. Reproductive Organs: Status post hysterectomy. OTHER: Lower Thorax: Normal. Liver and Biliary Tree: Normal noncontrast appearance. Gallbladder: Surgically absent. Spleen: Normal noncontrast appearance. Pancreas: Normal noncontrast appearance. Gastrointestinal Tract: Visualized stomach is unremarkable. No bowel obstruction. No evidence of appendicitis. There are colonic diverticula without evidence of diverticulitis. Peritoneal Cavity: No free fluid or free air. Vasculature: Normal noncontrast appearance. Lymph Nodes: No bulky lymphadenopathy. Abdominal Wall: Postsurgical changes of the ventral abdominal wall. Musculoskeletal: No acute or suspicious osseous findings. IMPRESSION: 1. The evaluation is limited secondary to motion. 2. Nonobstructing right nephrolith. 3. Colonic diverticulosis. [employer] Workstation ID: [id number] Dictated by: MARGUERITE SANDOVAL on ThuMay 14, 2022 10:48:46 PM EST Transcribed by: MYNOR GABRIEL on ThuMay 14, 2022 10:56:21 PM EST Finalized by: MARGUERITE SANDOVAL on ThuMay 14, 2022 11:21:39 PM EST Normal [facility] Comment on above: Order Comment: Injur y/Trauma or Illness?:Illness/Other How long have you had these symptoms (acute/chronic)?:Acute Reason for exam?:FLANK PAIN, HX: KIDNEY STONES Type of Exam?:Unknown Additional signs and symptoms?:UNKNOWN Automated erythrocytes count in urine sediment (number/area)Ordered By: PROVIDER TEMP on 05-01-2022 RBC Auto (Urine sed) [#/Area] Innumerable [HPF] 0-4 [facility] Automated leukocytes count i n urine sediment (number/area)Ordered By: PROVIDER TEMP on 05-01-2022 WBC Auto (Urine sed) [#/Area] 3-4 [HPF] 0-4 [facility] Basophils Auto (Bld) [#/Vol] Ordered By: Joseluis Vega on 05-01-2022 Basophils (Bld) [#/Vol] 0.1 10*3/uL 0.0-0.2 [facility] Basophils/100 WBC Auto (Bld) Ordered By: Joseluis Vega on 05-01-2022 Basophils/100 WBC (Bld) 0.9 % . [facility] Bilirubin Test strip Ql (U)O rdered By: JACINTA TEMKoko on 05-01-2022 Bilirubin Ql (U) Negative Negative [facility] Body fluid albumin measureme nt (mass/volume)Ordered By: Joseluis Vega on 05-01-2022 Albumin (Body fld) [Mass/Vol] 4.0 g/dL 3.2-5.5 [facility] Color Auto (U)Ordered By: TI CHANCE TEMP on 05-01-2022 Color (U) Yellow Yellow [facility] Creatinine and Glomerular fi ltration rate.predicted panel (S/P/Bld)Ordered By: Joseluis Vega on 05-01-2022 Creatinine [Mass/Vol] 0.62 mg/dL 0.44-1.03 [facility] Eosinophils Auto (Bld) [#/Vo l]Ordered By: Joseluis Vega on 05-01-2022 Eosinophils (Bld) [#/Vol] 0.6 10*3/uL 0.0-0.45 [facility] Eosinophils/100 WBC Auto (Bl d)Ordered By: Joseluis Vega on 05-01-2022 Eosinophils/100 WBC (Bld) 8.5 % . [facility] Erythrocyte distribution wid th Auto (RBC) [Ratio]Ordered By: Joseulis Vega on 05-01-2022 Erythrocyte distribution width (RBC) [Ratio] 12.7 % 11.9-15.3 [facility] Estimated glomerular filtrat ion rate (GFR) non- AmericanOrdered By: Joseluis Vega on 05-01-2022 GFR/1.73 sq M.predicted among non-blacks MDRD (S/P/Bld) [Vol rate/Area] > 60 mL/Min [facility] Globulin Calc (S) [Mass/Vol] Ordered By: Joseluis Vega on 05-01-2022 Globulin (S) [Mass/Vol] 4.3 g/dL [facility] Hematocrit Auto (Bld) [Volum e fraction]Ordered By: Joseluis Vega on 05-01-2022 Hematocrit (Bld) [Volume fraction] 43.2 % 34.0-46.4 [facility] Hemoglobin [Mass/volume] in BloodOrdered By: Joseluis Vega on 05-01-2022 Hemoglobin (Bld) [Mass/Vol] 14.8 g/dL 11.8-15.4 [facility] Ketones Auto test strip (U) [Mass/Vol]Ordered By: PROVIDER TEMP on 05-01-2022 Ketones (U) [Mass/Vol] Negative Negative [facility] - Hematology and Cell countsOrdered By: Joseluis Vega on 05-01-2022 Nucleated RBC/100 WBC (Bld) [Ratio] 0.1 % 0-0.5 [facility] - UrinalysisOrder ed By: PROVIDER TEMP on 05-01-2022 Hyaline casts LM Ql (Urine sed) None seen [LPF] 0-8 [facility] Leukocytes [#/volume] in Blo od by Automated countOrdered By: Joseluis Vega on 05-01-2022 WBC (Bld) [#/Vol] 7.2 10*3/uL 4.5-11.0 [facility] Lymphocytes Auto (Bld) [#/Vo l]Ordered By: Joseluis Vega on 05-01-2022 Lymphocytes (Bld) [#/Vol] 1.7 10*3/uL 1.00-4.8 [facility] Lymphocytes/100 WBC Auto (Bl d)Ordered By: Joseluis Vega on 05-01-2022 Lymphocytes/100 WBC (Bld) 23.2 % . [facility] MCH Auto (RBC) [Entitic mass ]Ordered By: Joseluis Vega on 05-01-2022 MCH (RBC) [Entitic mass] 30.5 pg 24.7-34.3 [facility] MCHC Auto (RBC) [Mass/Vol]Or dered By: Joseluis Vega on 05-01-2022 MCHC (RBC) [Mass/Vol] 34.3 g/dL 32.0-35.0 [facility] MCV Auto (RBC) [Entitic vol] Ordered By: Joseluis Vega on 05-01-2022 MCV (RBC) [Entitic vol] 88.8 fL 80-100 [facility] Monocytes Auto (Bld) [#/Vol] Ordered By: Joseluis Vega on 05-01-2022 Monocytes (Bld) [#/Vol] 0.5 10*3/uL 0.0-0.8 [facility] Monocytes/100 WBC Auto (Bld) Ordered By: Joseluis Vega on 05-01-2022 Monocytes/100 WBC (Bld) 7.3 % . [facility] Neutrophils Auto (Bld) [#/Vo l]Ordered By: Joseluis Vega on 05-01-2022 Neutrophils (Bld) [#/Vol] 4.4 10*3/uL 1.8-7.7 [facility] Neutrophils/100 WBC Auto (Bl d)Ordered By: Joseluis Vega on 05-01-2022 Neutrophils/100 WBC (Bld) 60.1 % . [facility] Nitrite Test strip Ql (U)Ord ered By: PROVIDER TEMP on 05-01-2022 Nitrite Ql (U) Negative Negative [facility] No Panel InformationOrdered By: Joseluis Vega on 05-01-2022 Estimated GFR () > 60 mL/Min [facility] Comment on above: GFR estimated refere nce range: According to KDOQI guidelines, <60 ml/min/1.73m2 is sufficient to diagnose a patient with chronic kidney disease. Pharmacy Creatinine Clearance (Chem 140.85 [facility] Platelet mean volume Auto (B ld) [Entitic vol]Ordered By: Joseluis Vega on 05-01-2022 Platelet mean volume (Bld) [Entitic vol] 6.9 fL 6.3-10.7 [facility] Platelets Auto (Bld) [#/Vol] Ordered By: Joseluis Vega on 05-01-2022 Platelets (Bld) [#/Vol] 321 10*3/uL 150-450 [facility] Protein Auto test strip (U) [Mass/Vol]Ordered By: PROVIDER TEMP on 05-01-2022 Protein (U) [Mass/Vol] Negative Negative [facility] Protein [Mass/volume] in Ser um or PlasmaOrdered By: Joseluis Vega on 05-01-2022 Protein [Mass/Vol] 8.3 g/dL 6.1-7.9 [facility] RBC Auto (Bld) [#/Vol]Ordere d By: Joseluis Vega on 05-01-2022 RBC (Bld) [#/Vol] 4.87 10*6/uL 3.60-5.00 [facility] Serum or plasma alanine slaughter otransferase measurement without P-5'-P (enzymatic activiOrdered By: Joseluis Vega on 05-01-2022 ALT No additional P-5'-P [Catalytic activity/Vol] 22 U/L 10-60 [facility] Serum or plasma albumin/glob ulin mass ratioOrdered By: Joseluis Vega on 05-01-2022 Albumin/Globulin [Mass ratio] 0.9 {ratio} [facility] Serum or plasma alkaline shelby sphatase measurement (enzymatic activity/volume)Ordered By: Joseluis Vega on 05-01-2022 ALP [Catalytic activity/Vol] 67 U/L 32-92 [facility] Serum or plasma anion gap de terminationOrdered By: Joseluis Vega on 05-01-2022 Anion gap [Moles/Vol] 14.2 mmol/L 6.0-15.0 [facility] Serum or plasma aspartate am inotransferase measurement (enzymatic activity/volume)Ordered By: Joseluis Vega on 05-01-2022 AST [Catalytic activity/Vol] 27 U/L 10-42 [facility] Serum or plasma calcium jesse urement (mass/volume)Ordered By: Joseluis Vega on 05-01-2022 Calcium [Mass/Vol] 9.9 mg/dL 8.2-10.2 [facility] Serum or plasma chloride marcia surement (moles/volume)Ordered By: Joseluis Vega on 05-01-2022 Chloride [Moles/Vol] 100 mmol/L 95-114 [facility] Serum or plasma glucose jesse urement (mass/volume)Ordered By: Joseluis Vega on 05-01-2022 Glucose [Mass/Vol] 88 mg/dL 70-100 [facility] Comment on above: ADA recommended refe rence rangeRandom Glucose Reference Range is dependent on time and content of last meal. Glucose of more than 200 mg/dL in a nonstressed, ambulatory subject supports the diagnosis of Diabetes Mellitus. Serum or plasma potassium me asurement (moles/volume)Ordered By: Joseluis Vega on 05-01-2022 Potassium [Moles/Vol] 3.8 mmol/L 3.5-5.1 [facility] Serum or plasma sodium measu rement (moles/volume)Ordered By: Joseluis Vega on 05-01-2022 Sodium [Moles/Vol] 139 mmol/L 136-146 [facility] Serum or plasma total biliru bin measurement (mass/volume)Ordered By: Joseluis Vega on 05-01-2022 Bilirubin [Mass/Vol] 0.6 mg/dL 0.3-1.2 [facility] Serum or plasma total carbon dioxide measurement (moles/volume)Ordered By: Joseluis Vega on 05-01-2022 CO2 [Moles/Vol] 28.6 mmol/L 22.0-30.0 [facility] Serum or plasma urea nitroge n measurement (mass/volume)Ordered By: Joseluis Vega on 05-01-2022 Urea nitrogen [Mass/Vol] 14 mg/dL 9-23 [facility] Specific gravity Auto test s trip (U) [Rel density]Ordered By: JACINTA PHILLIPS on 05-01-2022 Specific gravity (U) [Rel density] 1.020 1.001-1.[address] [facility] Squamous epithelial cells de tection in urine sediment by light microscopyOrdered By: [facility] on 05-01-2022 Epithelial cells.squamous LM Ql (Urine sed) 0-1 [HPF] 0-2 [facility] Urine bacteria detection by automated methodOrdered By: JACINTA [facility] on 05-01-2022 Bacteria Auto Ql (U) None seen None Seen [facility] Urine clarity by refractomet ry automatedOrdered By: [facility] on 05-01-2022 Clarity Refractometry automated (U) Clear Clear [facility] Urine glucose measurement by automated test strip (mass/volume)Ordered By: [facility] on 05-01-2022 Glucose Auto test strip (U) [Mass/Vol] >=1000 mg/dL Normal [facility] Urine hemoglobin detection b y automated test stripOrdered By: PROVIDER CHONG on 05-01-2022 Hemoglobin Auto test strip Ql (U) 3+ Negative [facility] Urine leukocyte esterase det ection by automated test stripOrdered By: PROVIDER TEMP on 05-01-2022 Leukocyte esterase Auto test strip Ql (U) 2+ Negative [facility] Urobilinogen Auto test strip (U) [Mass/Vol]Ordered By: PROVIDER TEMP on 05-01-2022 Urobilinogen (U) [Mass/Vol] Normal mg/dL Normal [facility] pH Auto test strip (U)Ordere d By: PROVIDER TEMP on 05-01-2022 pH (U) 6.0 [pH] 5.0-9.0 [facility] CHEMISTRYOrdered By: Lab ROP User on 04-25-2022 Glucose [Mass/Vol] 163 mg/dL High 55 - 99 mg/dL [facility] POC Subsection Comment on above: Result Comment: Erma sunita Meter POC Device SN [id number] Invalid Interpretation Code [facility] POC Subsection POC User ID [id number] Invalid Interpretation Code [facility] POC Subsection POC Username DORINA SIMPSON Invalid Interpretation Code [facility] POC Subsection Glucose [Mass/Vol] 131 mg/dL High 55 - 99 mg/dL [facility] POC Subsection Comment on above: Result Comment: Erma sunita Meter POC Device SN [id number] Invalid Interpretation Code [facility] POC Subsection POC User ID [id number] Invalid Interpretation Code [facility] POC Subsection POC Username HERNANDEZWinifred DORINA Invalid Interpretation Code [facility] POC Subsection Glucose [Mass/Vol] 130 mg/dL High 55 - 99 mg/dL [facility] POC Subsection Comment on above: Result Comment: Joselyn jennings RN/ POC Device SN [id number] Invalid Interpretation Code [facility] POC Subsection POC User ID [id number] Invalid Interpretation Code [facility] POC Subsection POC Username CARPENTER DYLAN Invalid Interpretation Code [facility] POC Subsection CHEMISTRYOrdered By: SYSTEM SYSTEM on 04-21-2022 Albumin [Mass/Vol] 4.2 g/dL Normal 3.3 - 5.0 gm/dL [facility] Remisol Albumin/Globulin [Mass ratio] 1.1 {ratio} Normal 1.1 - 2.2 [facility] ALP [Catalytic activity/Vol] 57 [iU]/d Normal 21 - 98 Int._Unit/ L [facility] ALT No additional P-5'-P [Catalytic activity/Vol] 12 [iU]/d Normal 6 - 46 Int._Unit/ L [facility] Remisol AST [Catalytic activity/Vol] 16 [iU]/d Normal 5 - 43 Int._Unit/ L [facility] Remisol Bilirubin [Mass/Vol] 0.5 mg/dL Normal 0.0 - 1 .1 mg/dL [facility] Remisol Bilirubin.direct [Mass/Vol] mg/dL Normal 0.1 - 0.4 mg/dL [facility] Remisol Bilirubin.indirect [Mass or moles/Vol] Unable to Calculate mg/dL Invalid Interpretation Code 0.1 - 0.9 mg/dL [facility] Remisol Creatinine [Mass/Vol] 0.9 mg/dL Normal 0.5 - 1.3 mg/dL [facility] Remisol GFR/1.73 sq M.predicted among blacks MDRD (S/P/Bld) [Vol rate/Area] mL/min/1.73 m2 Normal >=59mL/min /1.73 m2 [facility] Chem S GFR/1.73 sq M.predicted among non-blacks MDRD (S/P/Bld) [Vol rate/Area] mL/min/1.73 m2 Normal >=59mL/min /1.73 m2 [facility] Chem S Globulin (S) [Mass/Vol] 3.7 g/dL Normal 1.4 - 4.0 gm/dL [facility] Protein [Mass/Vol] 7.9 g/dL High 6.0 - 7.8 gm/dL [facility] Urea nitrogen [Mass/Vol] 24 mg/dL High 5 - 21 mg/dL [facility] Remisol Urea nitrogen/Creatinine [Mass ratio] 27 mg/mg High 10 - 20 [facility] CHEMISTRYOrdered By: Alcira Muñoz on 04-21-2022 Anion gap [Moles/Vol] 14 mmol/L Normal 6 - 16 mEq/L [facility] Remisol Calcium [Mass/Vol] 9.4 mg/dL Normal 8.9 - 11. 1 mg/dL [facility] Chloride [Moles/Vol] 102 mmol/L Normal 101 - 1 11 mmol/L [facility] Remisol CO2 [Moles/Vol] 26 mmol/L Normal 21 - 31 mmol/L [facility] Remisol Glucose [Mass/Vol] 224 mg/dL High 55 - 199 mg/dL [facility] Remisol Lipase [Catalytic activity/Vol] 51 U/L Normal 13 - 58 unit/L [facility] Remisol Potassium [Moles/Vol] 4.0 mmol/L Normal 3.5 - 5.3 mmol/L [facility] Remisol Sodium [Moles/Vol] 138 mmol/L Normal 135 - 145 mmol/L [facility] Remisol HEMATOLOGYOrdered By: SYSTEM SYSTEM on 04-21-2022 Basophils/100 WBC (Bld) 0.7 % Normal 0.0 - 2.0 % [facility] HemeAutoSS Basophils/Leukocytes Auto (Bld) [Pure # fraction] 0.1 E9/L Normal 0.0 - 0.2 E9/L [facility] Eosinophils/100 WBC (Bld) 2.7 % Normal 0.0 - 8.0 % [facility] Eosinophils/Leukocytes Auto (Bld) [Pure # fraction] 0.2 E9/L Normal 0.0 - 0.5 E9/L [facility] Lymphocytes/100 WBC (Bld) 29.1 % Normal 14.0 - 50.0 % [facility]eAuto[facility] Lymphocytes/Leukocytes Auto (Bld) [Pure # fraction] 2.2 E9/L Normal 1.0 - 4.0 E9/L [facility]eAutoSS Monocytes/100 WBC (Bld) 7.3 % Normal 4.0 - 14.0 % [facility] Monocytes/Leukocytes Auto (Bld) [Pure # fraction] 0.6 E9/L Normal 0.2 - 1.0 E9/L [facility] Neutrophils/100 WBC (Bld) 60.2 % Normal 36.0 - 75.0 % [facility] Neutrophils/Leukocytes Auto (Bld) [Pure # fraction] 4.5 E9/L Normal 2.0 - 7.5 E9/L [facility] HEMATOLOGYOrdered By: Janice Cruz on 04-21-2022 Erythrocyte distribution width (RBC) [Ratio] 12.8 % Normal 10.9 - 14.2 % [facility] Hematocrit (Bld) [Volume fraction] 39.5 % Normal 34.0 - 46.0 % [facility] Hemoglobin (Bld) [Mass/Vol] 13.9 g/dL Normal 12.0 - 16.0 gm/dL [facility] MCH (RBC) [Entitic mass] 30.5 pg Normal 27.0 - 34.0 pg [facility] MCHC (RBC) [Mass/Vol] 35.0 g/dL Normal 31.4 - 36.0 gm/dL [facility] MCV (RBC) [Entitic vol] 87.2 fL Normal 80.0 - 100.0 fL [facility] Platelet mean volume (Bld) [Entitic vol] 7.3 fL Normal 6.4 - 10.8 fL [facility]eAutoSS Platelets (Bld) [#/Vol] 265.0 E9/L Normal 150.0 - 500.0 E9/L [facility]eAuto[facility] RBC (Bld) [#/Vol] 4.5 E12/L Normal 4.3 - 5.9 E12/L [facility]eAuto[facility] WBC corrected for nucl RBC Auto (Bld) [#/Vol] 7.5 E9/L Normal 4.0 - 11.0 E9/L [facility] Laboratory - Microbiology an d Antimicrobial susceptibilityOrdered By: Gaby Reis on 04-21-2022 Bacteria identified Cx Nom (U) 2,000 cfu/ml Mixed skin contaminants [facility] URINALYSISOrdered By: Clau Muñoz on 04-21-2022 Bacteria LM Ql (Urine sed) Trace /HPF Normal Trace/HPF [facility] UA Auto SS Bilirubin Ql (U) Negative (04/21/22 10:13 PM) Normal Negative [facility] UA Auto SS Clarity (U) SL CLOUDY Invalid Interpretation Code [facility] UA Auto SS Color (U) STRAW Invalid Interpretation Code [facility] UA Auto SS Crystals LM Ql (Urine sed) Present (04/21/22 10:13 PM) Normal [facility] UA Auto SS Epithelial cells.squamous LM.HPF (Urine sed) [#/Area] 3-4 /HPF Normal 0-2/HPF [facility] UA Aut o SS Glucose Test strip (U) [Mass/Vol] Negative (04/21/22 10:13 PM) Normal Negative [facility] UA Auto SS Hemoglobin Ql (U) 3+ *ABN* (04/21/22 10:13 PM) Invalid Interpretation Code Negative [facility] UA Auto SS Ketones (U) [Mass/Vol] Negative (04/21/22 10:13 PM) Normal Negative [facility] UA Auto SS [place].plasma/[place] .RBC (Bld) [Mass ratio] 4-20 /HPF Normal 0-3/HPF [facility] UA Auto SS Nitrite Ql (U) Negative (04/21/22 10:13 PM) Normal Negative [facility] UA Auto SS pH (U) 7.0 *NA* (04/21/22 10:13 PM) Invalid Interpretation Code 5.0 - 9.0 [facility] UA Auto SS Protein (U) [Mass/Vol] Negative (04/21/22 10:13 PM) Normal Negative [facility] UA Auto SS Specific gravity (U) [Rel density] 1.025 *NA* (04/21/22 10:13 PM) Invalid Interpretation Code 1.005 - 1.030 [facility] UA Auto SS UA Spec Desc Clean Catch (04/21/22 10:13 PM) Normal [facility] UA Auto SS Urobilinogen Qn (U) [id number] {Diaz'U}/dL Normal 0.0 - 1.0 EU/dL [facility] UA Auto SS WBC Auto Ql (U) 2+ *ABN* (04/21/22 10:13 PM) Invalid Interpretation Code Negative [facility] UA Auto SS WBC LM.HPF (Urine sed) [#/Area] 6-15 /HPF Invalid Interpretation Code 0-5/HPF [facility] UA Auto SS CHEMISTRYOrdered By: SYSTEM SYSTEM on 04-15-2022 Anion gap [Moles/Vol] 11 mmol/L Normal 6 - 16 mEq/L [facility] Remisol Chloride [Moles/Vol] 104 mmol/L Normal 101 - 1 11 mmol/L [facility] Remisol CO2 [Moles/Vol] 29 mmol/L Normal 21 - 31 mmol/L [facility] Remisol Creatinine [Mass/Vol] 0.5 mg/dL Normal 0.5 - 1.3 mg/dL [facility] Remisol GFR/1.73 sq M.predicted among blacks MDRD (S/P/Bld) [Vol rate/Area] mL/min/1.73 m2 Normal >=59mL/min /1.73 m2 [facility] Chem S GFR/1.73 sq M.predicted among non-blacks MDRD (S/P/Bld) [Vol rate/Area] mL/min/1.73 m2 Normal >=59mL/min /1.73 m2 [facility] Chem S Glucose [Mass/Vol] 46 mg/dL Low 55 - 199 mg/dL [facility] Remisol Potassium [Moles/Vol] 3.6 mmol/L Normal 3.5 - 5.3 mmol/L [facility] Remisol Sodium [Moles/Vol] 140 mmol/L Normal 135 - 145 mmol/L [facility] Remisol Urea nitrogen [Mass/Vol] 22 mg/dL High 5 - 21 mg/dL [facility] Remisol HEMATOLOGYOrdered By: Bertha jones on 04-15-2022 Erythrocyte distribution width (RBC) [Ratio] 12.8 % Normal 10.9 - 14.2 % [facility] Hematocrit (Bld) [Volume fraction] 41.2 % Normal 34.0 - 46.0 % [facility] Hemoglobin (Bld) [Mass/Vol] 14.1 g/dL Normal 12.0 - 16.0 gm/dL [facility] MCH (RBC) [Entitic mass] 30.4 pg Normal 27.0 - 34.0 pg [facility] MCHC (RBC) [Mass/Vol] 34.3 g/dL Normal 31.4 - 36.0 gm/dL [facility] MCV (RBC) [Entitic vol] 88.5 fL Normal 80.0 - 100.0 fL [facility] Platelet mean volume (Bld) [Entitic vol] 6.9 fL Normal 6.4 - 10.8 fL [facility] Platelets (Bld) [#/Vol] 223.0 E9/L Normal 150.0 - 500.0 E9/L [facility] RBC (Bld) [#/Vol] 4.7 E12/L Normal 4.3 - 5.9 E12/L [facility] WBC corrected for nucl RBC Auto (Bld) [#/Vol] 7.0 E9/L Normal 4.0 - 11.0 E9/L [facility] Glucose Glucometer (BldC) [M ass/Vol]Ordered By: Vivek Ceballos on 04-13-2022 Glucose [Mass/Vol] 178 mg/dL [facility] Comment on above: Random Glucose Refer ence Range is dependent on time and content of last meal. Glucose of more than 200 mg/dL in a nonstressed, ambulatory subject supports the diagnosis of Diabetes Mellitus. Laboratory - Chemistry and C hemistry - challengeOrdered By: Vivek Ceballos on 04-13-2022 AST [Catalytic activity/Vol] 14 U/L [facility] No Panel InformationOrdered By: Vivek Ceballos on 04-13-2022 Bedside Glucose Comment Glu2: cleaned meter [facility] Serum or plasma alanine slaughter otransferase measurement without P-5'-P (enzymatic activiOrdered By: Vivek Ceballos on 04-13-2022 ALT No additional P-5'-P [Catalytic activity/Vol] 12 U/L 60 [facility] Serum or plasma alkaline shelby sphatase measurement (enzymatic activity/volume)Ordered By: Vivek Ceballos on 04-13-2022 ALP [Catalytic activity/Vol] 47 U/L [facility] Serum or plasma potassium me asurement (moles/volume)Ordered By: Vivek Ceballos on 04-13-2022 Potassium [Moles/Vol] 3.5 mmol/L 3.5-5.1 [facility] Serum or plasma total biliru bin measurement (mass/volume)Ordered By: Vivek Ceballos on 04-13-2022 Bilirubin [Mass/Vol] 0.5 mg/dL 0.3-1.2 [facility] Automated erythrocytes count in urine sediment (number/area)Ordered By: Vivek Ceballos on 04-12-2022 RBC Auto (Urine sed) [#/Area] Innumerable [HPF] 0-4 [facility] Automated leukocytes count i n urine sediment (number/area)Ordered By: Vivek Ceballos on 04-12-2022 WBC Auto (Urine sed) [#/Area] 3-4 [HPF] 0-4 [facility] Basophils Auto (Bld) [#/Vol] Ordered By: Vivek Ceballos on 04-12-2022 Basophils (Bld) [#/Vol] 0.1 10*3/uL 0.0-0.2 [facility] Basophils/100 WBC Auto (Bld) Ordered By: Vivek Ceballos on 04-12-2022 Basophils/100 WBC (Bld) 1.0 % . [facility] Bilirubin Test strip Ql (U)O rdered By: Vivek Ceballos on 04-12-2022 Bilirubin Ql (U) Negative Negative [facility] Body fluid albumin measureme nt (mass/volume)Ordered By: Vivek Ceballos on 04-12-2022 Albumin (Body fld) [Mass/Vol] 4.1 g/dL 3.2-5.5 [facility] Color Auto (U)Ordered By: Juan Ceballos on 04-12-2022 Color (U) Yellow Yellow [facility] Creatinine and Glomerular fi ltration rate.predicted panel (S/P/Bld)Ordered By: Vivek Ceballos on 04-12-2022 Creatinine [Mass/Vol] 0.63 mg/dL 0.44-1.03 [facility] Eosinophils Auto (Bld) [#/Vo l]Ordered By: Vivek Ceballos on 04-12-2022 Eosinophils (Bld) [#/Vol] 0.1 10*3/uL 0.0-0.45 [facility] Eosinophils/100 WBC Auto (Bl d)Ordered By: Vivek Ceballos on 04-12-2022 Eosinophils/100 WBC (Bld) 1.4 % . [facility] Erythrocyte distribution wid th Auto (RBC) [Ratio]Ordered By: Vivek Ceballos on 04-12-2022 Erythrocyte distribution width (RBC) [Ratio] 13.2 % 11.9-15.3 [facility] Estimated glomerular filtrat ion rate (GFR) non- AmericanOrdered By: Vivek Ceballos on 04-12-2022 GFR/1.73 sq M.predicted among non-blacks MDRD (S/P/Bld) [Vol rate/Area] > 60 mL/Min [facility] Globulin Calc (S) [Mass/Vol] Ordered By: Vivek Ceballos on 04-12-2022 Globulin (S) [Mass/Vol] 3.1 g/dL [facility] HCG ( test) IA.rapi d Ql (U)Ordered By: Vivek Ceballos on 04-12-2022 HCG ( test) Ql (U) Negative [facility] Hematocrit Auto (Bld) [Volum e fraction]Ordered By: Vivek Ceballos on 04-12-2022 Hematocrit (Bld) [Volume fraction] 40.8 % 34.0-46.4 [facility] Hemoglobin [Mass/volume] in BloodOrdered By: Vivek Ceballos on 04-12-2022 Hemoglobin (Bld) [Mass/Vol] 14.2 g/dL 11.8-15.4 [facility] Ketones Auto test strip (U) [Mass/Vol]Ordered By: Vivek Ceballos on 04-12-2022 Ketones (U) [Mass/Vol] Negative Negative [facility] Laboratory - Hematology and Cell countsOrdered By: Vivek Ceballos on 04-12-2022 Nucleated RBC/100 WBC (Bld) [Ratio] 0.1 % 0-0.5 [facility] Laboratory - UrinalysisOrder ed By: Vivek Ceballos on 04-12-2022 Hyaline casts LM Ql (Urine sed) 0-8 [LPF] 0-8 [facility] Leukocytes [#/volume] in Blo od by Automated countOrdered By: Vivek Ceballos on 04-12-2022 WBC (Bld) [#/Vol] 10.3 10*3/uL 4.5-11.0 [facility] Lymphocytes Auto (Bld) [#/Vo l]Ordered By: Vivek Ceballos on 04-12-2022 Lymphocytes (Bld) [#/Vol] 2.5 10*3/uL 1.00-4.8 [facility] Lymphocytes/100 WBC Auto (Bl d)Ordered By: Vivek Ceballos on 04-12-2022 Lymphocytes/100 WBC (Bld) 24.7 % . [facility] MCH Auto (RBC) [Entitic mass ]Ordered By: Vivek Ceballos on 04-12-2022 MCH (RBC) [Entitic mass] 30.9 pg 24.7-34.3 [facility] MCHC Auto (RBC) [Mass/Vol]Or dered By: Vivek Ceballos on 04-12-2022 MCHC (RBC) [Mass/Vol] 34.7 g/dL 32.0-35.0 [facility] MCV Auto (RBC) [Entitic vol] Ordered By: Vivek Ceballos on 04-12-2022 MCV (RBC) [Entitic vol] 88.9 fL 80-100 [facility] Monocytes Auto (Bld) [#/Vol] Ordered By: Vivek Ceballos on 04-12-2022 Monocytes (Bld) [#/Vol] 0.7 10*3/uL 0.0-0.8 [facility] Monocytes/100 WBC Auto (Bld) Ordered By: Vivek Ceballos on 04-12-2022 Monocytes/100 WBC (Bld) 6.3 % . [facility] Neutrophils Auto (Bld) [#/Vo l]Ordered By: Vivek Ceballos on 04-12-2022 Neutrophils (Bld) [#/Vol] 6.9 10*3/uL 1.8-7.7 [facility] Neutrophils/100 WBC Auto (Bl d)Ordered By: Vivek Ceballos on 04-12-2022 Neutrophils/100 WBC (Bld) 66.6 % . [facility] Nitrite Test strip Ql (U)Ord ered By: Vivek Ceballos on 04-12-2022 Nitrite Ql (U) Negative Negative [facility] No Panel InformationOrdered By: Vivek Ceballos on 04-12-2022 Estimated GFR () > 60 mL/Min [facility] Comment on above: GFR estimated refere nce range: According to KDOQI guidelines, <60 ml/min/1.73m2 is sufficient to diagnose a patient with chronic kidney disease. Pharmacy Creatinine Clearance (Chem 144.65 [facility] Platelet mean volume Auto (B ld) [Entitic vol]Ordered By: Vivek Ceballos on 04-12-2022 Platelet mean volume (Bld) [Entitic vol] 7.0 fL 6.3-10.7 [facility] Platelets Auto (Bld) [#/Vol] Ordered By: Vivek Ceballos on 04-12-2022 Platelets (Bld) [#/Vol] 262 10*3/uL 150-450 [facility] Protein Auto test strip (U) [Mass/Vol]Ordered By: Vivek Ceballos on 04-12-2022 Protein (U) [Mass/Vol] Negative Negative [facility] Protein [Mass/volume] in Ser um or PlasmaOrdered By: Vivek Ceballos on 04-12-2022 Protein [Mass/Vol] 7.2 g/dL 6.1-7.9 [facility] RBC Auto (Bld) [#/Vol]Ordere d By: Vivek Ceballos on 04-12-2022 RBC (Bld) [#/Vol] 4.60 10*6/uL 3.60-5.00 [facility] Serum or plasma albumin/glob ulin mass ratioOrdered By: Vivek Ceballos on 04-12-2022 Albumin/Globulin [Mass ratio] 1.3 {ratio} [facility] Serum or plasma anion gap de terminationOrdered By: Vivek Ceballos on 04-12-2022 Anion gap [Moles/Vol] TNP [facility] Comment on above: Test not performed Serum or plasma calcium jesse urement (mass/volume)Ordered By: Vivek Ceballos on 04-12-2022 Calcium [Mass/Vol] 9.7 mg/dL 8.2-10.2 [facility] Serum or plasma chloride marcia surement (moles/volume)Ordered By: Vivek Ceballos on 04-12-2022 Chloride [Moles/Vol] 101 mmol/L 95-114 [facility] Serum or plasma glucose jesse urement (mass/volume)Ordered By: Vivek Ceballos on 04-12-2022 Glucose [Mass/Vol] 48 mg/dL 70-100 [facility] Comment on above: Results calledat 235 8 on 04/12/22 ADA recommended reference rangeRandom Glucose Reference Range is dependent on time and content of last meal. Glucose of more than 200 mg/dL in a nonstressed, ambulatory subject supports the diagnosis of Diabetes Mellitus. Serum or plasma sodium measu rement (moles/volume)Ordered By: Vivek Ceballos on 04-12-2022 Sodium [Moles/Vol] 137 mmol/L 136-146 [facility] Serum or plasma total carbon dioxide measurement (moles/volume)Ordered By: Vivek Ceballos on 04-12-2022 CO2 [Moles/Vol] 25.1 mmol/L 22.0-30.0 [facility] Serum or plasma urea nitroge n measurement (mass/volume)Ordered By: Vivek Ceballos on 04-12-2022 Urea nitrogen [Mass/Vol] 20 mg/dL 9-23 [facility] Specific gravity Auto test s trip (U) [Rel density]Ordered By: Vivek Ceballos on 04-12-2022 Specific gravity (U) [Rel density] 1.017 1.001-1.[address] [facility] Squamous epithelial cells de tection in urine sediment by light microscopyOrdered By: Vivek Ceballos on 04-12-2022 Epithelial cells.squamous LM Ql (Urine sed) 3-4 [HPF] 0-2 [facility] Urine bacteria detection by automated methodOrdered By: Vivek Ceballos on 04-12-2022 Bacteria Auto Ql (U) None seen None Seen [facility] Urine clarity by refractomet ry automatedOrdered By: Vivek Ceballos on 04-12-2022 Clarity Refractometry automated (U) Clear Clear [facility] Urine glucose measurement by automated test strip (mass/volume)Ordered By: Vivek Ceballos on 04-12-2022 Glucose Auto test strip (U) [Mass/Vol] Normal mg/dL Normal [facility] Urine hemoglobin detection b y automated test stripOrdered By: Vivek Ceballos on 04-12-2022 Hemoglobin Auto test strip Ql (U) 3+ Negative [facility] Urine leukocyte esterase det ection by automated test stripOrdered By: Vivek Ceballos on 04-12-2022 Leukocyte esterase Auto test strip Ql (U) 2+ Negative [facility] Urobilinogen Auto test strip (U) [Mass/Vol]Ordered By: Vivek Ceballos on 04-12-2022 Urobilinogen (U) [Mass/Vol] Normal mg/dL Normal [facility] pH Auto test strip (U)Ordere d By: Vivek Ceballos on 04-12-2022 pH (U) 6.5 [pH] 5.0-9.0 [facility] Urine culture routineOrdered By: Gurwinder Philippe on 04-03-2022 Bacteria identified Cx Nom (U) [address] [facility] COVID Quick Testingon 2021 Result Negative [facility] Other Quick Strepon 04-01-2022 S. pyogenes Org specific cx Ql (Throat) Negative [facility] Other Quick Strep [facility] Other Automated erythrocytes count in urine sediment (number/area)Ordered By: Gurwinder Philippe on 03-31-2022 RBC Auto (Urine sed) [#/Area] Innumerable [HPF] 0-4 [facility] Automated leukocytes count i n urine sediment (number/area)Ordered By: Gurwinder Philippe on 03-31-2022 WBC Auto (Urine sed) [#/Area] 50-100 [HPF] 0-4 [facility] Automated urine hyaline cast s count (number/volume)Ordered By: Gurwinder Philippe on 03-31-2022 Hyaline casts Auto (U) [#/Vol] 5-9 [LPF] 0-1 [facility] Basophils Auto (Bld) [#/Vol] Ordered By: Gurwinder Philippe on 03-31-2022 Basophils (Bld) [#/Vol] 0.1 10*3/uL 0.0-0.2 [facility] Basophils/100 WBC Auto (Bld) Ordered By: Gurwinder Philippe on 03-31-2022 Basophils/100 WBC (Bld) 1.1 % . [facility] Bilirubin Test strip Ql (U)O rdered By: Gurwinder Philippe on 03-31-2022 Bilirubin Ql (U) Negative Negative [facility] Blood hemoglobin measurement (mass/volume)Ordered By: Gurwinder Philippe on 03-31-2022 Hemoglobin (Bld) [Mass/Vol] 12.9 g/dL 11.8-15.4 [facility] Blood leukocytes automated c ount (number/volume)Ordered By: Gurwinder Philippe on 03-31-2022 WBC (Bld) [#/Vol] 6.0 10*3/uL 4.5-11.0 [facility] Body fluid albumin measureme nt (mass/volume)Ordered By: Gurwinder Philippe on 03-31-2022 Albumin (Body fld) [Mass/Vol] 3.5 g/dL 3.2-5.5 [facility] Casts typing in urine sedime nt by light microscopyOrdered By: Gurwinder Philippe on 03-31-2022 Casts LM Nom (Urine sed) None seen [LPF] None Seen [facility] Color Auto (U)Ordered By: Suzan Philippe on 03-31-2022 Color (U) [place] Yellow [facility] Creatinine and Glomerular fi ltration rate.predicted panel (S/P/Bld)Ordered By: Gurwinder Philippe on 03-31-2022 Creatinine [Mass/Vol] 0.82 mg/dL 0.44-1.03 [facility] Eosinophils Auto (Bld) [#/Vo l]Ordered By: Gurwinder Philippe on 03-31-2022 Eosinophils (Bld) [#/Vol] 0.2 10*3/uL 0.0-0.45 [facility] Eosinophils/100 WBC Auto (Bl d)Ordered By: Gurwinder Philippe on 03-31-2022 Eosinophils/100 WBC (Bld) 3.9 % . [facility] Erythrocyte distribution wid th Auto (RBC) [Ratio]Ordered By: Gurwinder Philippe on 03-31-2022 Erythrocyte distribution width (RBC) [Ratio] 12.4 % 11.9-15.3 [facility] Estimated glomerular filtrat ion rate (GFR) non- AmericanOrdered By: Gurwinder Philippe on 03-31-2022 GFR/1.73 sq M.predicted among non-blacks MDRD (S/P/Bld) [Vol rate/Area] > 60 mL/Min [facility] Globulin Calc (S) [Mass/Vol] Ordered By: Gurwinder Philippe on 03-31-2022 Globulin (S) [Mass/Vol] 2.9 g/dL [facility] Hematocrit Auto (Bld) [Volum e fraction]Ordered By: Gurwinder Philippe on 03-31-2022 Hematocrit (Bld) [Volume fraction] 37.1 % 34.0-46.4 [facility] Ketones Auto test strip (U) [Mass/Vol]Ordered By: Gurwinder Philippe on 03-31-2022 Ketones (U) [Mass/Vol] Trace Negative [facility] - Hematology and Cell countsOrdered By: Gurwinder Philippe on 03-31-2022 Nucleated RBC/100 WBC (Bld) [Ratio] 0.0 % 0-0.5 [facility] Lymphocytes Auto (Bld) [#/Vo l]Ordered By: Gurwinder Philippe on 03-31-2022 Lymphocytes (Bld) [#/Vol] 1.9 10*3/uL 1.00-4.8 [facility] Lymphocytes/100 WBC Auto (Bl d)Ordered By: Gurwinder Philippe on 03-31-2022 Lymphocytes/100 WBC (Bld) 31.2 % . [facility] MCH Auto (RBC) [Entitic mass ]Ordered By: Gurwinder Philippe on 03-31-2022 MCH (RBC) [Entitic mass] 30.9 pg 24.7-34.3 [facility] MCHC Auto (RBC) [Mass/Vol]Or dered By: Gurwinder Philippe on 03-31-2022 MCHC (RBC) [Mass/Vol] 34.7 g/dL 32.0-35.0 [facility] MCV Auto (RBC) [Entitic vol] Ordered By: Gurwinder Philippe on 03-31-2022 MCV (RBC) [Entitic vol] 88.9 fL 80-100 [facility] Monocytes Auto (Bld) [#/Vol] Ordered By: Gurwinder Philippe on 03-31-2022 Monocytes (Bld) [#/Vol] 0.5 10*3/uL 0.0-0.8 [facility] Monocytes/100 WBC Auto (Bld) Ordered By: Gurwinder Philippe on 03-31-2022 Monocytes/100 WBC (Bld) 7.8 % . [facility] Mucus LM Ql (Urine sed)Order ed By: Gurwinder Philippe on 03-31-2022 Mucus Ql (Urine sed) 3+ [LPF] [facility] Neutrophils Auto (Bld) [#/Vo l]Ordered By: Gurwinder Philippe on 03-31-2022 Neutrophils (Bld) [#/Vol] 3.4 10*3/uL 1.8-7.7 [facility] Neutrophils/100 WBC Auto (Bl d)Ordered By: Gurwinder Philippe on 03-31-2022 Neutrophils/100 WBC (Bld) 56.0 % . [facility] Nitrite Test strip Ql (U)Ord ered By: Gurwinder Philippe on 03-31-2022 Nitrite Ql (U) Negative Negative [facility] No Panel InformationOrdered By: Gurwinder Philippe on 03-31-2022 Estimated GFR () > 60 mL/Min [facility] Comment on above: GFR estimated refere nce range: According to KDOQI guidelines, <60 ml/min/1.73m2 is sufficient to diagnose a patient with chronic kidney disease. Pharmacy Creatinine Clearance (Chem 111.35 [facility] Platelet mean volume Auto (B ld) [Entitic vol]Ordered By: Gurwinder Philippe on 03-31-2022 Platelet mean volume (Bld) [Entitic vol] 7.0 fL 6.3-10.7 [facility] Platelets Auto (Bld) [#/Vol] Ordered By: Gurwinder Philippe on 03-31-2022 Platelets (Bld) [#/Vol] 233 10*3/uL 150-450 [facility] Protein Auto test strip (U) [Mass/Vol]Ordered By: Gurwinder Philippe on 03-31-2022 Protein (U) [Mass/Vol] 30 mg/dL Negative [facility] Protein [Mass/volume] in Ser um or PlasmaOrdered By: Gurwinder Philippe on 03-31-2022 Protein [Mass/Vol] 6.4 g/dL 6.1-7.9 [facility] RBC Auto (Bld) [#/Vol]Ordere d By: Gurwinder Philippe on 03-31-2022 RBC (Bld) [#/Vol] 4.17 10*6/uL 3.60-5.00 [facility] Serum or plasma alanine slaughter otransferase measurement without P-5'-P (enzymatic activiOrdered By: Gurwinder Philippe on 03-31-2022 ALT No additional P-5'-P [Catalytic activity/Vol] 12 U/L 10-60 [facility] Serum or plasma albumin/glob ulin mass ratioOrdered By: Gurwinder Philippe on 03-31-2022 Albumin/Globulin [Mass ratio] 1.2 {ratio} [facility] Serum or plasma alkaline shelby sphatase measurement (enzymatic activity/volume)Ordered By: Gurwinder Philippe on 03-31-2022 ALP [Catalytic activity/Vol] 46 U/L 32-92 [facility] Serum or plasma anion gap de terminationOrdered By: Gurwinder Philippe on 03-31-2022 Anion gap [Moles/Vol] 14.4 mmol/L 6.0-15.0 [facility] Serum or plasma aspartate am inotransferase measurement (enzymatic activity/volume)Ordered By: Gurwinder Philippe on 03-31-2022 AST [Catalytic activity/Vol] 18 U/L 10 [facility] Serum or plasma calcium jesse urement (mass/volume)Ordered By: Gurwinder Philippe on 03-31-2022 Calcium [Mass/Vol] 9.2 mg/dL 8.2-10.2 [facility] Serum or plasma chloride marcia surement (moles/volume)Ordered By: Gurwinder Philippe on 03-31-2022 Chloride [Moles/Vol] 99 mmol/L 95-114 [facility] Serum or plasma glucose jesse urement (mass/volume)Ordered By: Gurwinder Philippe on 03-31-2022 Glucose [Mass/Vol] 305 mg/dL 70-100 [facility] Comment on above: ADA recommended refe rence rangeRandom Glucose Reference Range is dependent on time and content of last meal. Glucose of more than 200 mg/dL in a nonstressed, ambulatory subject supports the diagnosis of Diabetes Mellitus. Serum or plasma potassium me asurement (moles/volume)Ordered By: Gurwinder Philippe on 03-31-2022 Potassium [Moles/Vol] 4.1 mmol/L 3.5-5.1 [facility] Serum or plasma sodium measu rement (moles/volume)Ordered By: Gurwinder Philippe on 03-31-2022 Sodium [Moles/Vol] 135 mmol/L 136-146 [facility] Serum or plasma total biliru bin measurement (mass/volume)Ordered By: Gurwinder Philippe on 03-31-2022 Bilirubin [Mass/Vol] 0.3 mg/dL 0.3-1.2 [facility] Serum or plasma total carbon dioxide measurement (moles/volume)Ordered By: Gurwinder Philippe on 03-31-2022 CO2 [Moles/Vol] 25.7 mmol/L 22.0-30.0 [facility] Serum or plasma urea nitroge n measurement (mass/volume)Ordered By: Gurwinder Philippe on 03-31-2022 Urea nitrogen [Mass/Vol] 14 mg/dL 03-21 [facility] Specific gravity Auto test s trip (U) [Rel density]Ordered By: Gurwinder Philippe on 03-31-2022 Specific gravity (U) [Rel density] 1.025 1.001-1.[address] [facility] Squamous epithelial cells de tection in urine sediment by light microscopyOrdered By: Gurwinder Philippe on 03-31-2022 Epithelial cells.squamous LM Ql (Urine sed) 10- [HPF] 0-2 [facility] Urine bacteria detection by automated methodOrdered By: Gurwinder Philippe on 03-31-2022 Bacteria Auto Ql (U) None seen None Seen [facility] Urine clarity by refractomet ry automatedOrdered By: Gurwinder Philippe on 03-31-2022 Clarity Refractometry automated (U) Cloudy Clear [facility] Urine glucose measurement by automated test strip (mass/volume)Ordered By: Gurwinder Philippe on 03-31-2022 Glucose Auto test strip (U) [Mass/Vol] 250 mg/dL Normal [facility] Urine hemoglobin detection b y automated test stripOrdered By: Gurwinder Philippe on 03-31-2022 Hemoglobin Auto test strip Ql (U) 3+ Negative [facility] Urine leukocyte esterase det ection by automated test stripOrdered By: Gurwinder Philippe on 03-31-2022 Leukocyte esterase Auto test strip Ql (U) 3+ Negative [facility] Urine sediment renal epithel ial cell count by microscopy (number/high power field)Ordered By: Gurwinder Philippe on 03-31-2022 Epithelial cells.renal LM.HPF (Urine sed) [#/Area] None seen [HPF] 0-1 [facility] Urobilinogen Auto test strip (U) [Mass/Vol]Ordered By: Gurwinder Philippe on 03-31-2022 Urobilinogen (U) [Mass/Vol] Normal mg/dL Normal [facility] pH Auto test strip (U)Ordere d By: Gurwinder Philippe on 03-31-2022 pH (U) 6.0 [pH] 5.0-9.0 [facility] CHEMISTRYOrdered By: [employer] on 03-08-2022 Albumin [Mass/Vol] 3.9 g/dL Normal 3.3 - 5.0 gm/dL [facility] Albumin/Globulin [Mass ratio] 1.1 {ratio} Normal 1.1 - 2.2 [facility] ALP [Catalytic activity/Vol] 51 [iU]/d Normal 21 - 98 Int._Unit/ L [facility] ALT No additional P-5'-P [Catalytic activity/Vol] 13 [iU]/d Normal 6 - 46 Int._Unit/ L [facility] Anion gap [Moles/Vol] 12 mmol/L Normal 6 - 16 mEq/L [facility] AST [Catalytic activity/Vol] 16 [iU]/d Normal 5 - 43 Int._Unit/ L [facility] Bilirubin [Mass/Vol] 0.3 mg/dL Normal 0.0 - 1 .1 mg/dL [facility] Bilirubin.direct [Mass/Vol] mg/dL Normal 0.1 - 0.4 mg/dL [facility] Bilirubin.indirect [Mass or moles/Vol] Unable to Calculate mg/dL Invalid Interpretation Code 0.1 - 0.9 mg/dL [facility] Calcium [Mass/Vol] 9.3 mg/dL Normal 8.9 - 11. 1 mg/dL [facility] Chloride [Moles/Vol] 105 mmol/L Normal 101 - 1 11 mmol/L [facility] CO2 [Moles/Vol] 27 mmol/L Normal 21 - 31 mmol/L [facility] Creatinine [Mass/Vol] 0.7 mg/dL Normal 0.5 - 1.3 mg/dL [facility] GFR/1.73 sq M.predicted among blacks MDRD (S/P/Bld) [Vol rate/Area] mL/min/1.73 m2 Normal >=59mL/min /1.73 m2 [facility] S GFR/1.73 sq M.predicted among non-blacks MDRD (S/P/Bld) [Vol rate/Area] mL/min/1.73 m2 Normal >=59mL/min /1.73 m2 [facility] Chem S Globulin (S) [Mass/Vol] 3.5 g/dL Normal 1.4 - 4.0 gm/dL [facility] Glucose [Mass/Vol] 94 mg/dL Normal 55 - 199 mg/dL [facility] Lipase [Catalytic activity/Vol] 41 U/L Normal 13 - 58 unit/L [facility] Potassium [Moles/Vol] 3.6 mmol/L Normal 3.5 - 5.3 mmol/L [facility] Protein [Mass/Vol] 7.4 g/dL Normal 6.0 - 7.8 gm/dL [facility] Sodium [Moles/Vol] 140 mmol/L Normal 135 - 145 mmol/L [facility] Urea nitrogen [Mass/Vol] 26 mg/dL High 5 - 21 mg/dL [facility] Urea nitrogen/Creatinine [Mass ratio] 37 mg/mg High 10 - 20 [facility] HEMATOLOGYOrdered By: [employer] SYSTEM on 03-08-2022 Basophils/100 WBC (Bld) 0.8 % Normal 0.0 - 2.0 % [facility] Basophils/Leukocytes Auto (Bld) [Pure # fraction] 0.1 E9/L Normal 0.0 - 0.2 E9/L [facility] Eosinophils/100 WBC (Bld) 5.2 % Normal 0.0 - 8.0 % [facility] Eosinophils/Leukocytes Auto (Bld) [Pure # fraction] 0.4 E9/L Normal 0.0 - 0.5 E9/L [facility] Lymphocytes/100 WBC (Bld) 21.0 % Normal 14.0 - 50.0 % [facility] Lymphocytes/Leukocytes Auto (Bld) [Pure # fraction] 1.8 E9/L Normal 1.0 - 4.0 E9/L [facility] Monocytes/100 WBC (Bld) 8.3 % Normal 4.0 - 14.0 % [facility] Monocytes/Leukocytes Auto (Bld) [Pure # fraction] 0.7 E9/L Normal 0.2 - 1.0 E9/L [facility] Neutrophils/100 WBC (Bld) 64.7 % Normal 36.0 - 75.0 % [facility] Neutrophils/Leukocytes Auto (Bld) [Pure # fraction] 5.5 E9/L Normal 2.0 - 7.5 E9/L [facility] HEMATOLOGYOrdered By: Mark Kate on 03-08-2022 Erythrocyte distribution width (RBC) [Ratio] 13.2 % Normal 10.9 - 14.2 % [facility] Hematocrit (Bld) [Volume fraction] 40.2 % Normal 34.0 - 46.0 % [facility] Hemoglobin (Bld) [Mass/Vol] 13.6 g/dL Normal 12.0 - 16.0 gm/dL [facility] MCH (RBC) [Entitic mass] 30.5 pg Normal 27.0 - 34.0 pg [facility] MCHC (RBC) [Mass/Vol] 33.9 g/dL Normal 31.4 - 36.0 gm/dL [facility] MCV (RBC) [Entitic vol] 89.9 fL Normal 80.0 - 100.0 fL [facility] Platelet mean volume (Bld) [Entitic vol] 7.0 fL Normal 6.4 - 10.8 fL [facility] Platelets (Bld) [#/Vol] 256.0 E9/L Normal 150.0 - 500.0 E9/L [facility] RBC (Bld) [#/Vol] 4.5 E12/L Normal 4.3 - 5.9 E12/L [facility] WBC corrected for nucl RBC Auto (Bld) [#/Vol] 8.5 E9/L Normal 4.0 - 11.0 E9/L [facility] SEROLOGYOrdered By: Mark menendez on 03-08-2022 HCG.beta subunit (U) [Moles/Vol] Negative Normal [facility] URINALYSISOrdered By: Mark Kate on 03-08-2022 Bacteria LM Ql (Urine sed) 1+ /HPF Invalid Interpretation Code Trace/HPF [facility] UA Auto SS Bilirubin Ql (U) Negative (03/08/22 8:07 PM) Normal Negative [facility] UA Auto SS Clarity (U) Cloudy *ABN* (03/08/22 8:07 PM) Invalid Interpretation Code Clear [facility] UA Auto SS Color (U) DARK YELLO Invalid Interpretation Code [facility] UA Auto SS Epithelial cells.squamous LM.HPF (Urine sed) [#/Area] 3-4 /HPF Normal 0-2/HPF [facility] UA Aut o SS Glucose Test strip (U) [Mass/Vol] Negative (03/08/22 8:07 PM) Normal Negative [facility] UA Auto SS Hemoglobin Ql (U) 3+ *ABN* (03/08/22 8:07 PM) Invalid Interpretation Code Negative [facility] UA Auto SS Ketones (U) [Mass/Vol] Negative (03/08/22 8:07 PM) Normal Negative [facility] UA Auto SS [place].plasma/[place] .RBC (Bld) [Mass ratio] 21-30 /HPF Invalid Interpretation Code 0-3/HPF [facility] UA Auto SS Nitrite Ql (U) Negative (03/08/22 8:07 PM) Normal Negative [facility] UA Auto SS pH (U) 5.5 *NA* (03/08/22 8:07 PM) Invalid Interpretation Code 5.0 - 9.0 [facility] UA Auto SS Protein (U) [Mass/Vol] 1+ *ABN* (03/08/22 8:07 PM) Invalid Interpretation Code Negative [facility] UA Auto SS Specific gravity (U) [Rel density] >=1.030 *NA* (03/08/22 8:07 PM) Invalid Interpretation Code 1.005 - 1.030 [facility] UA Auto SS UA Spec Desc Clean Catch (03/08/22 8:07 PM) Normal [facility]A Auto SS Urobilinogen Qn (U) [id number] {Diaz'U}/dL Normal 0.0 - 1.0 EU/dL [facility] UA Auto SS WBC Auto Ql (U) 2+ *ABN* (03/08/22 8:07 PM) Invalid Interpretation Code Negative [facility] UA Auto SS WBC LM.HPF (Urine sed) [#/Area] 26-30 /HPF Invalid Interpretation Code 0-5/HPF [facility] UA Auto SS Urine culture routineOrdered By: Gurwinder Philippe on 02-28-2022 Bacteria identified Cx Nom (U) [address] [facility] Basophils Auto (Bld) [#/Vol] Ordered By: Joseluis Vega on 02-26-2022 Basophils (Bld) [#/Vol] 0.1 10*3/uL 0.0-0.2 [facility] Basophils/100 WBC Auto (Bld) Ordered By: Joseluis Vega on 02-26-2022 Basophils/100 WBC (Bld) 0.8 % . [facility] Blood hemoglobin measurement (mass/volume)Ordered By: Joseluis Vega on 02-26-2022 Hemoglobin (Bld) [Mass/Vol] 14.6 g/dL 11.8-15.4 [facility] Blood leukocytes automated c ount (number/volume)Ordered By: Joseluis Vega on 02-26-2022 WBC (Bld) [#/Vol] 7.9 10*3/uL 4.5-11.0 [facility] Body fluid albumin measureme nt (mass/volume)Ordered By: Joseluis Vega on 02-26-2022 Albumin (Body fld) [Mass/Vol] 4.3 g/dL 3.2-5.5 [facility] Creatinine and Glomerular fi ltration rate.predicted panel (S/P/Bld)Ordered By: Joseluis Vega on 02-26-2022 Creatinine [Mass/Vol] 0.59 mg/dL 0.44-1.03 [facility] Eosinophils Auto (Bld) [#/Vo l]Ordered By: Joseluis Vega on 02-26-2022 Eosinophils (Bld) [#/Vol] 0.2 10*3/uL 0.0-0.45 [facility] Eosinophils/100 WBC Auto (Bl d)Ordered By: Joseluis Vega on 02-26-2022 Eosinophils/100 WBC (Bld) 2.0 % . [facility] Erythrocyte distribution wid th Auto (RBC) [Ratio]Ordered By: Joseluis Vega on 02-26-2022 Erythrocyte distribution width (RBC) [Ratio] 13.6 % 11.9-15.3 [facility] Estimated glomerular filtrat ion rate (GFR) non- AmericanOrdered By: Joseluis Vega on 02-26-2022 GFR/1.73 sq M.predicted among non-blacks MDRD (S/P/Bld) [Vol rate/Area] > 60 mL/Min [facility] Globulin Calc (S) [Mass/Vol] Ordered By: Joseluis Vega on 02-26-2022 Globulin (S) [Mass/Vol] 3.2 g/dL [facility] Hematocrit Auto (Bld) [Volum e fraction]Ordered By: Joseluis Vega on 02-26-2022 Hematocrit (Bld) [Volume fraction] 42.3 % 34.0-46.4 [facility] - Hematology and Cell countsOrdered By: Joseluis Vega on 02-26-2022 Nucleated RBC/100 WBC (Bld) [Ratio] 0.1 % 0-0.5 [facility] Lymphocytes Auto (Bld) [#/Vo l]Ordered By: Joseluis Vega on 02-26-2022 Lymphocytes (Bld) [#/Vol] 2.2 10*3/uL 1.00-4.8 [facility] Lymphocytes/100 WBC Auto (Bl d)Ordered By: Joseluis Vega on 02-26-2022 Lymphocytes/100 WBC (Bld) 28.4 % . [facility] MCH Auto (RBC) [Entitic mass ]Ordered By: Joseluis Vega on 02-26-2022 MCH (RBC) [Entitic mass] 31.3 pg 24.7-34.3 [facility] MCHC Auto (RBC) [Mass/Vol]Or dered By: Joseluis Vega on 02-26-2022 MCHC (RBC) [Mass/Vol] 34.5 g/dL 32.0-35.0 [facility] MCV Auto (RBC) [Entitic vol] Ordered By: Joseluis Vega on 02-26-2022 MCV (RBC) [Entitic vol] 90.5 fL 80-100 [facility] Monocytes Auto (Bld) [#/Vol] Ordered By: Joseluis Vega on 02-26-2022 Monocytes (Bld) [#/Vol] 0.6 10*3/uL 0.0-0.8 [facility] Monocytes/100 WBC Auto (Bld) Ordered By: Joseluis Vega on 02-26-2022 Monocytes/100 WBC (Bld) 7.5 % . [facility] Neutrophils Auto (Bld) [#/Vo l]Ordered By: Joseluis Vega on 02-26-2022 Neutrophils (Bld) [#/Vol] 4.9 10*3/uL 1.8-7.7 [facility] Neutrophils/100 WBC Auto (Bl d)Ordered By: Joseluis Vega on 02-26-2022 Neutrophils/100 WBC (Bld) 61.3 % . [facility] No Panel InformationOrdered By: Joseluis Vega on 02-26-2022 Estimated GFR () > 60 mL/Min [facility] Comment on above: GFR estimated refere nce range: According to KDOQI guidelines, <60 ml/min/1.73m2 is sufficient to diagnose a patient with chronic kidney disease. Pharmacy Creatinine Clearance (Chem 146.30 [facility] Platelet mean volume Auto (B ld) [Entitic vol]Ordered By: Joseluis Vega on 02-26-2022 Platelet mean volume (Bld) [Entitic vol] 6.6 fL 6.3-10.7 [facility] Platelets Auto (Bld) [#/Vol] Ordered By: Joseluis Vega on 02-26-2022 Platelets (Bld) [#/Vol] 290 10*3/uL 150-450 [facility] Protein [Mass/volume] in Ser um or PlasmaOrdered By: Joseluis Vega on 02-26-2022 Protein [Mass/Vol] 7.5 g/dL 6.1-7.9 [facility] RBC Auto (Bld) [#/Vol]Ordere d By: Joseluis Vega on 02-26-2022 RBC (Bld) [#/Vol] 4.67 10*6/uL 3.60-5.00 [facility] Serum or plasma alanine slaughter otransferase measurement without P-5'-P (enzymatic activiOrdered By: Joseluis Vega on 02-26-2022 ALT No additional P-5'-P [Catalytic activity/Vol] 17 U/L 10-60 [facility] Serum or plasma albumin/glob ulin mass ratioOrdered By: Joseluis Vega on 02-26-2022 Albumin/Globulin [Mass ratio] 1.3 {ratio} [facility] Serum or plasma alkaline shelby sphatase measurement (enzymatic activity/volume)Ordered By: Joseluis Vega on 02-26-2022 ALP [Catalytic activity/Vol] 55 U/L 32-92 [facility] Serum or plasma anion gap de terminationOrdered By: Joseluis Vega on 02-26-2022 Anion gap [Moles/Vol] 14.0 mmol/L 6.0-15.0 [facility] Serum or plasma aspartate am inotransferase measurement (enzymatic activity/volume)Ordered By: Joseluis Vega on 02-26-2022 AST [Catalytic activity/Vol] 17 U/L 10-42 [facility] Serum or plasma calcium jesse urement (mass/volume)Ordered By: Joseluis Vega on 02-26-2022 Calcium [Mass/Vol] 9.7 mg/dL 8.2-10.2 [facility] Serum or plasma chloride marcia surement (moles/volume)Ordered By: Joseluis Vega on 02-26-2022 Chloride [Moles/Vol] 100 mmol/L 95-114 [facility] Serum or plasma glucose jesse urement (mass/volume)Ordered By: Joseluis Vega on 02-26-2022 Glucose [Mass/Vol] 143 mg/dL 70-100 [facility] Comment on above: ADA recommended refe rence range Random Glucose Reference Range is dependent on time and content of last meal. Glucose of more than 200 mg/dL in a nonstressed, ambulatory subject supports the diagnosis of Diabetes Mellitus. ADA recommended refe rence rangeRandom Glucose Reference Range is dependent on time and content of last meal. Glucose of more than 200 mg/dL in a nonstressed, ambulatory subject supports the diagnosis of Diabetes Mellitus. Serum or plasma potassium me asurement (moles/volume)Ordered By: Joseluis Vega on 02-26-2022 Potassium [Moles/Vol] 3.7 mmol/L 3.5-5.1 [facility] Serum or plasma sodium measu rement (moles/volume)Ordered By: Joseluis Vega on 02-26-2022 Sodium [Moles/Vol] 138 mmol/L 136-146 [facility] Serum or plasma total biliru bin measurement (mass/volume)Ordered By: Joseluis Vega on 02-26-2022 Bilirubin [Mass/Vol] 0.8 mg/dL 0.3-1.2 [facility] Serum or plasma total carbon dioxide measurement (moles/volume)Ordered By: Joseluis Vega on 02-26-2022 CO2 [Moles/Vol] 27.7 mmol/L 22.0-30.0 [facility] Serum or plasma urea nitroge n measurement (mass/volume)Ordered By: Joseluis Vega on 02-26-2022 Urea nitrogen [Mass/Vol] 13 mg/dL 9-23 [facility] Automated erythrocytes count in urine sediment (number/area)Ordered By: Gurwinder Philippe on 02-25-2022 RBC Auto (Urine sed) [#/Area] Innumerable [HPF] 0-4 [facility] Automated leukocytes count i n urine sediment (number/area)Ordered By: Gurwinder Philippe on 02-25-2022 WBC Auto (Urine sed) [#/Area] 20-49 [HPF] 0-4 [facility] Bilirubin Test strip Ql (U)O rdered By: Gurwinder Philippe on 02-25-2022 Bilirubin Ql (U) Negative Negative [facility] Color Auto (U)Ordered By: Suzan Philippe on 02-25-2022 Color (U) Red Yellow [facility] HCG ( test) IA.rapi d Ql (U)Ordered By: JACINTA PHILLIPS on 02-25-2022 HCG ( test) Ql (U) Negative [facility] Ketones Auto test strip (U) [Mass/Vol]Ordered By: Gurwinder Philippe on 02-25-2022 Ketones (U) [Mass/Vol] Negative Negative [facility] - UrinalysisOrder ed By: Gurwinder Philippe on 02-25-2022 Hyaline casts LM Ql (Urine sed) 0-8 [LPF] 0-8 [facility] Nitrite Test strip Ql (U)Ord ered By: Gurwinder Philippe on 02-25-2022 Nitrite Ql (U) Negative Negative [facility] Protein Auto test strip (U) [Mass/Vol]Ordered By: Gurwinder Philippe on 02-25-2022 Protein (U) [Mass/Vol] Negative Negative [facility] Specific gravity Auto test s trip (U) [Rel density]Ordered By: Gurwinder Philippe on 02-25-2022 Specific gravity (U) [Rel density] 1.009 1.001-1.[address] [facility] Squamous epithelial cells de tection in urine sediment by light microscopyOrdered By: Gurwinder Philippe on 02-25-2022 Epithelial cells.squamous LM Ql (Urine sed) 5-9 [HPF] 0-2 [facility] Urine bacteria detection by automated methodOrdered By: Gurwinder Philippe on 02-25-2022 Bacteria Auto Ql (U) None seen None Seen [facility] Urine clarity by refractomet ry automatedOrdered By: Gurwinder Philippe on 02-25-2022 Clarity Refractometry automated (U) Cloudy Clear [facility] Urine glucose measurement by automated test strip (mass/volume)Ordered By: Gurwinder Philippe on 02-25-2022 Glucose Auto test strip (U) [Mass/Vol] Normal mg/dL Normal [facility] Urine hemoglobin detection b y automated test stripOrdered By: Gurwinder Philippe on 02-25-2022 Hemoglobin Auto test strip Ql (U) 3+ Negative [facility] Urine leukocyte esterase det ection by automated test stripOrdered By: Gurwinder Philippe on 02-25-2022 Leukocyte esterase Auto test strip Ql (U) 4+ Negative [facility] Urobilinogen Auto test strip (U) [Mass/Vol]Ordered By: Gurwinder Philippe on 02-25-2022 Urobilinogen (U) [Mass/Vol] Normal mg/dL Normal [facility] pH Auto test strip (U)Ordere d By: Gurwinder Philippe on 02-25-2022 pH (U) 7.0 [pH] 5.0-9.0 [facility] XR ABDOMEN /KUB/FLAT PLATE/1 VIEWon 02-07-2022 XR ABDOMEN /KUB/FLAT PLATE/1 VIEW EXAMINATION: XR ABDOMEN /KUB/FLAT PLATE/1 VIEW 02/07/2022 12:23 am HISTORY: ORDERING SYSTEM PROVIDED HISTORY: right flank pain and hx of stones, TECHNOLOGIST PROVIDED HISTORY: Illness/Other Reason for exam: right sided flank pain, nausea, vomiting. hx kidney stones Cancer History: NA Surgery, RadiationHistory: cholecystectomy Encounter Type: Initial Additional signs and symptoms: u ORDERING SYSTEM PROVIDED DIAGNOSIS CODES: COMPARISON: None FINDINGS: 2 views submitted for KUB. Surgical clips noted in the right upper quadrant indicating prior cholecystectomy. There is no mass or organomegaly. No suspicious abdominal calcifications are seen. The bowel gas pattern is unremarkable and nonobstructive. No osseous lesions are identified. IMPRESSION: 1. Nonobstructive bowel gas pattern. 2. No acute abdominal process identified. Workstation ID: [id number] Dictated by: RAHUL SMITH on ThuFeb 07, 2022 1:14:45 AM EDT Transcribed by: RAHUL SMITH on ThuFeb 07, 2022 1:14:45 AM EDT Finalized by: RAHUL SMITH on ThuFeb 07, 2022 1:14:45 AM EDT Normal [facility] Comment on above: Order Comment: Injur y/Trauma or Illness?:Illness/Other How long have you had these symptoms (acute/chronic)?:Acute Reason for exam?:right sided flank pain, nausea, vomiting. hx kidney stones History of cancer?:NA Surgeries, chemotherapy, or radiation?:cholecystectomy Type of Exam?:Initial Additional signs and symptoms?:u COVID-19, MOLECULARon 2021 SARS-CoV-2 (COVID-19) RNA JENNIFER+probe Ql (Unsp spec) Not detected Normal Not Detected [facility] Comment on above: Order Comment: This test was performed under the FDA's Emergency Use Authorization (EUA). Testing was performed using the Mariah SARS-CoV-2 RT-PCR Test on the Kristen Alina System. This test has not been approved for use in asymptomatic patients and its performance in this patient population has not been evaluated. Negative results do not rule out the presence of SARS-CoV-2. Fact sheets for the EUA can be found at the following links: For Healthcare Providers: https://www.fda.gov/media/503636/download For Patients: https://www.fda.gov/media/089347/download Performed By: #### L [id number] #### [facility] [address], [place] [address] Triston Le M.D. [id number] CT KIDNEY STONEon 01-18-2022 CT KIDNEY STONE EXAMINATION: CT KIDNEY STONE HISTORY: ORDERING SYSTEM PROVIDED HISTORY: Flank pain with history of stones., TECHNOLOGIST PROVIDED HISTORY: Illness/Other Reason for exam: RT. FLANK PAIN Encounter Type: Unknown Additional signs and symptoms: UNKNOWN ORDERING SYSTEM PROVIDED DIAGNOSIS CODES: R10.9 Flank pain R03.0 Elevated blood pressure reading COMPARISON: CT abdomen pelvis 01/13/2022 TECHNIQUE: Dose reduction techniques were achieved by using automated exposure control and/or adjustment of mA and/or kV according to patient size and/or use of iterative reconstruction technique. CT kidney stone without IV contrast. Multiple axial views coronal sagittal reformats. FINDINGS: Visualized portions liver, spleen, pancreas, adrenal glands, appendix, urinary bladder, and other pelvic structures are unremarkable. 3 mm nonobstructing right superior renal stone. 2 mm nonobstructing left inferior renal stone. No radiopaque ureteral stone or hydroureteronephrosis. Uterus is surgically absent. No evidence for bowel obstruction, large ascites, or free air. No acute bony abnormality. IMPRESSION: 3 mm nonobstructing right superior renal stone. 2 mm nonobstructing left inferior renal stone. No radiopaque ureteral stone or hydroureteronephrosis. Workstation ID: [id number] Dictated by: NAREN NAJERA on [facility] Jan 18, 2022 5:55:50 AM EDT Transcribed by: NAREN NAJERA on [facility] Jan 18, 2022 5:55:50 AM EDT Finalized by: NAREN NAJERA on [facility] Jan 18, 2022 5:55:50 AM EDT Normal [facility] Comment on above: Order Comment: Injur y/Trauma or Illness?:Illness/Other How long have you had these symptoms (acute/chronic)?:Acute Reason for exam?:RT. FLANK PAIN Type of Exam?:Unknown Additional signs and symptoms?:UNKNOWN NOVEL CORONAVIRUSon 01-19-20 22 NARRATIVE This test was perfor med using isothermal JENNIFER and has been approved as Emergency Use Authorization (EUA) for the qualitative detection [id number] nucleic acid. Normal [facility] Comment on above: Performed By: #### C OVID #### [place] [address] SARS-CoV-2 (COVID-19) RNA JENNIFER+probe Ql (Unsp spec) Not detected Normal NOT DETECTED [facility] Comment on above: Result Comment: Nega tive results do not preclude SARS-CoV-2 infection and should not be used as the sole basis for treatment or other patient management decisions. Optimum specimen types and timing for peak viral levels during infections caused by SARS-CoV-2 has not been determined. The possibility of a false negative result should especially be considered if the patient's recent exposures or clinical presentation suggest that SARS-CoV-2 infection is probable, and diagnostic tests for other causes of illness (e.g., other respiratory illness) are negative. Collection of a new specimen and re-testing may be necessary if the patient is critically ill or clinically deteriorating. Performed By: #### C OVID #### Testing performed at [facility] [address] [place] [address] XR CHEST PA/APon 01-18-2022 XR CHEST PA/AP EXAMINATION: XR CHEST PA/AP. 01/18/2022 CLINICAL HISTORY: COUGH COMPARISON: 12/04/2021 FINDINGS: Portable AP view of the chest. Cardiomediastinal silhouette and pulmonary vasculature are within normal limits. No focal opacity concerning for consolidation. No pneumothorax or gross pleural effusion. The visualized osseous structures show no acute disease. Soft tissues are grossly unremarkable. IMPRESSION: No acute cardiopulmonary abnormality. Workstation ID: [id number] Dictated by: RAMON RAMIREZ on [facility] Jan 18, 2022 3:57:08 AM EDT Transcribed by: RAMON RAMIREZ on [facility] Jan 18, 2022 3:57:08 AM EDT Finalized by: RAMON RAMIREZ on [facility] Jan 18, 2022 3:57:08 AM EDT [facility] Comment on above: Order Comment: Injur y/Trauma or Illness?:Illness/Other How long have you had these symptoms (acute/chronic)?:Acute Reason for exam?:LLQ pain, left fank pain Type of Exam?:Initial Additional signs and symptoms?: CT ABDOMEN PELVIS WITHOUT CO NTRASTon 01-13-2022 CT ABDOMEN PELVIS WITHOUT CONTRAST EXAMINATION: CT ABDOMEN PELVIS WITHOUT CONTRAST 01/13/2022 HISTORY: Right flank pain TECHNIQUE: Axial CT scans through the abdomen and pelvis were obtained without IV contrast administration. Dose reduction techniques were achieved by using: automated exposure control and/or adjustment of mA and /or kV according to patient size and/or use of iterative reconstruction technique. COMPARISON: 12/04/2021 FINDINGS: Limited evaluation of the viscera/organs and vasculature without intravenous contrast. TUBES/IMPLANTS: None. LOWER CHEST: Unremarkable. ABDOMINAL WALL AND SOFT TISSUES: Unremarkable. BONES: No suspicious lesions. Multilevel degenerative changes of the spine. ARTERIES: No aortic aneurysm. Incompletely evaluated. VEINS: Incompletely evaluated. LYMPH NODES: No bulky lymphadenopathy PERITONEUM/ RETROPERITONEUM: Unremarkable BOWEL: No obstruction APPENDIX: Unremarkable. LIVER: Unremarkable GALLBLADDER: Surgically absent BILE DUCTS: Not dilated SPLEEN: Unremarkable PANCREAS: Unremarkable. ADRENALS: Unremarkable. KIDNEYS/ URETERS: Right punctate nonobstructing renal calculus. No left hydronephrosis or stones. REPRODUCTIVE ORGANS: Uterus is surgically absent URINARY BLADDER: Mildly filled IMPRESSION: Right punctate nonobstructing renal calculus. No left hydronephrosis or stones. Workstation ID: [id number] Dictated by: RAMON RAMIREZ on ThuJan 13, 2022 10:11:51 PM EDT Transcribed by: RAMON RAMIREZ on ThuJan 13, 2022 10:11:51 PM EDT Finalized by: RAMON RAMIREZ on ThuJan 13, 2022 10:11:51 PM EDT [facility] Comment on above: Order Comment: Injur y/Trauma or Illness?:Illness/Other How long have you had these symptoms (acute/chronic)?:Acute Reason for exam?:right flank pain Type of Exam?:Initial Additional signs and symptoms?:right flank pain COMPREHENSIVE PANELon 2021 Albumin [Mass/Vol] 4.4 g/dL Normal 3.4 - 5.0 [facility] Comment on above: Performed By: #### C MP #### [address] [address] ALP [Catalytic activity/Vol] 71 U/L Normal 33 - 110 [facility] Comment on above: Performed By: #### C MP #### [address] [address] ALT [Catalytic activity/Vol] 10 U/L Normal 7 - 45 [facility] Comment on above: Result Comment: Shaniqua ents treated with Sulfasalazine may generate falsely decreased results for ALT. Performed By: #### C MP #### [address] [address] Anion gap [Moles/Vol] 14 mmol/L Normal 10 - 20 [facility] Comment on above: Performed By: #### C MP #### [address] [address] AST [Catalytic activity/Vol] 10 U/L Normal 9 - 39 [facility] Comment on above: Performed By: #### C MP #### [address] [address] Bilirubin [Mass/Vol] 0.4 mg/dL Normal 0.0 - 1.2 [facility] Comment on above: Performed By: #### C MP #### [address] [address] Calcium [Mass/Vol] 9.6 mg/dL Normal 8.6 - 10.3 [facility] Comment on above: Performed By: #### C MP #### [address] [address] Chloride [Moles/Vol] 99 mmol/L Normal 98 - 107 [facility] Comment on above: Performed By: #### C MP #### [address] [address] Creatinine [Mass/Vol] 0.66 mg/dL Normal 0.50 - 1.05 [facility] Comment on above: Performed By: #### C MP #### [address] [address] eGFR FEMALE >90 Normal >90 [facility] Comment on above: Result Comment: CALC ULATIONS OF ESTIMATED GFR ARE PERFORMED USING THE 2020 CKD-EPI STUDY REFIT EQUATION WITHOUT THE RACE VARIABLE FOR THE IDMS-TRACEABLE CREATININE METHODS. https://jasn.asnjournals.org/content/early//ASN.75543 92998 Performed By: #### C MP #### [address] [address] Glucose [Mass/Vol] 444 mg/dL High 74 - 99 [facility] Comment on above: Performed By: #### C MP #### [address] [address] HCO3 (Bld) [Moles/Vol] 26 mmol/L Normal 21 - 32 [facility] Comment on above: Performed By: #### C MP #### [address] [address] Potassium [Moles/Vol] 4.3 mmol/L Normal 3.5 - 5.3 [facility] Comment on above: Performed By: #### C MP #### [address] [address] Protein [Mass/Vol] 7.6 g/dL Normal 6.4 - 8.2 [facility] Comment on above: Performed By: #### C MP #### [address] [address] Sodium [Moles/Vol] 135 mmol/L Low 136 - 145 [facility] Comment on above: Performed By: #### C MP #### [address] [address] Urea nitrogen [Mass/Vol] 20 mg/dL Normal 6 - 23 [facility] Comment on above: Performed By: #### C MP #### [address] [address] [address] ABDOMEN AND PELVIS WO CON TRASTon 12-18-2021 CT ABDOMEN AND PELVIS WO CONTRAST Patient Name: GISEL CARLTON STUDY: CT ABDOMEN AND PELVIS WO CONTRAST; 12/17/2021 10:11 pm INDICATION: Right flank cabello . COMPARISON: 06/10/2021 ACCESSION NUMBER(S): [id number] ORDERING CLINICIAN: RICKEY CASTLE TECHNIQUE: Axial noncontrast CT images of the abdomen and pelvis with coronal and sagittal reconstructed images. FINDINGS: LOWER CHEST: No acute abnormality of the lung bases. BONES: No acute osseous abnormality. ABDOMINAL WALL: Within normal limits. ABDOMEN: Lack of intravenous contrast limits evaluation of vessels and solid organs. LIVER: Within normal limits. BILE DUCTS: Normal caliber. GALLBLADDER: Cholecystectomy. PANCREAS: No peripancreatic inflammatory stranding or duct dilatation. SPLEEN: Within normal limits. ADRENALS: Within normal limits. KIDNEYS, URETERS, URINARY BLADDER: Nonobstructing bilateral renal calculi, 3 mm on the right mandaen mm on the left. No hydronephrosis or calculus along the course of the ureters. The urinary bladder is unremarkable. VESSELS: No aortic aneurysm. RETROPERITONEUM: No pathologically enlarged lymph nodes. PELVIS: REPRODUCTIVE ORGANS: Hysterectomy. No significant free pelvic fluid. BOWEL: No dilated bowel. Normal appendix. PERITONEUM: No ascites or free air, no fluid collection. IMPRESSION: No acute abdominal or pelvic process. Electronically signed by: KRYSTAL CROWE MD Normal [facility] LACTATEon 12-18-2021 LACTATE Canceled Normal [facility] Comment on above: Order Comment: TEST LACTATE WAS CANCELLED, 12/17/2021 23:51 [facility] Result Comment: Angelique puncture immediately after or during the administration of Metamizole may lead to falsely low results. Testing should be performed immediately prior to Metamizole dosing. Performed By: #### U RINC #### [facility] [address] [place] [address] Lactate [Moles/Vol] 2.1 mmol/L High 0.4 - 2.0 [facility] Comment on above: Result Comment: Angelique puncture immediately after or during the administration of Metamizole may lead to falsely low results. Testing should be performed immediately prior to Metamizole dosing. Performed By: #### L ACT #### [address] [address] LIPASEon 12-18-2021 Lipase [Catalytic activity/Vol] 33 U/L Normal 9 - 82 [facility] Comment on above: Result Comment: Angelique puncture immediately after or during the administration of Metamizole may lead to falsely low results. Testing should be performed immediately prior to Metamizole dosing. F-jspjhk-o-benzoquinone imine (metabolite of Acetaminophen) will generate erroneously low results in samples for patients that have taken toxic doses of acetaminophen. Performed By: #### L IPAS #### [address] [address] CBC AND DIFFERENTIALon 12-17 Basophils (Bld) [#/Vol] 0.10 10*3/uL Normal 0.00 - 0.10 [facility] Comment on above: Performed By: #### U RINC #### [facility] [address] [place] [address] Basophils/100 WBC (Bld) 1.4 % Normal 0.0 - 2.0 [facility] Comment on above: Performed By: #### U RINC #### [facility] [address] [place] [address] Eosinophils (Bld) [#/Vol] 0.40 10*3/uL Normal 0.00 - 0.70 [facility] Comment on above: Performed By: #### U RINC #### [facility] [address] [place] [address] Eosinophils/100 WBC (Bld) 5.8 % Normal 0.0 - 6.0 [facility] Comment on above: Performed By: #### U RINC #### [facility] [address] [place] [address] Erythrocyte distribution width (RBC) [Ratio] 13.2 % Normal 11.5 - 14.5 [facility] Comment on above: Performed By: #### U RINC #### [facility] [address] [place] [address] Hematocrit (Bld) [Volume fraction] 43.0 % Normal 36.0 - 46.0 [facility] Comment on above: Performed By: #### U RINC #### [facility] [address] [place] [address] Hemoglobin (Bld) [Mass/Vol] 14.7 g/dL Normal 12.0 - 16.0 [facility] Comment on above: Performed By: #### U RINC #### [facility] [address] [place] [address] Lymphocytes (Bld) [#/Vol] 1.90 10*3/uL Normal 1.20 - 4.80 [facility] Comment on above: Performed By: #### U RINC #### [facility] [address] [place] [address] Lymphocytes/100 WBC (Bld) 25.1 % Normal 13.0 - 44.0 [facility] Comment on above: Performed By: #### U RINC #### [facility] [address] [place] [address] MCHC (RBC) [Mass/Vol] 34.2 g/dL Normal 32.0 - 36.0 [facility] Comment on above: Performed By: #### U RINC #### [facility] [address] [place] [address] MCV (RBC) [Entitic vol] 88 fL Normal 80 - 100 [facility] Comment on above: Performed By: #### U RINC #### [facility] [address] [place] [address] Monocytes (Bld) [#/Vol] 0.50 10*3/uL Normal 0.10 - 1.00 [facility] Comment on above: Performed By: #### U RINC #### [facility] [address] [place] [address] Monocytes/100 WBC (Bld) 7.2 % Normal 2.0 - 10.0 [facility] Comment on above: Performed By: #### U RINC #### [facility] [address] [place] [address] Neutrophils (Bld) [#/Vol] 4.50 10*3/uL Normal 1.20 - 7.70 [facility] Comment on above: Result Comment: Perc ent differential counts (%) should be interpreted in the context of the absolute cell counts (cells/L). Performed By: #### U RINC #### [facility] [address] [place] [address] Neutrophils/100 WBC (Bld) 60.5 % Normal 40.0 - 80.0 [facility] Comment on above: Performed By: #### U RINC #### [facility] [address] [place] [address] Platelets (Bld) [#/Vol] 271 10*3/uL Normal 150 - 450 [facility] Comment on above: Performed By: #### U RINC #### [facility] [address] [place] [address] RBC 4.89 x10E12/L Normal 4.00 - 5.20 [facility] Comment on above: Performed By: #### U RINC #### [facility] [address] [place] [address] WBC (Bld) [#/Vol] 7.5 10*3/uL Normal 4.4 - 11.3 [facility] Comment on above: Performed By: #### U [facility] #### [facility] [address] [place] [address] Provider Note - ED v3on 11-28 Provider Note - ED v3 Provider Note: Chart Review: ED NOTES ED NOTES: Source of Information: Patient. EMR was reviewed for previous records. ----- HPI: Right flank pain. This 46-year-old white female presents to the ED with complaint of sudden onset of right flank pain approximately 2 hours prior arrival to the ED. She states that she has associated nausea without vomiting. Patient denies any urinary symptoms. She states that she does have a history of kidney stones and her last kidney stone was last in January that required hospitalization due to inability to pass it. Patient denies any history of vomiting. She states that nothing makes her pain better or worse. She denies pain elsewhere. ----- PMH: Kidney stones, type 2 diabetes, GERD PSH:*Ectomy, kidney stone removal, umbilical hernia repair, cholecystectomy, ORIF of right leg, bilateral carpal tunnel syndrome Social Hx: The patient denies any use of tobacco, alcohol or illicit drugs. Fam: MEDS: Noted in the EMR. ALLERGIES: Noted in the EMR. ----- PHYSICAL EXAM: General: Patient alert, awake, oriented X3, appears be mild distress secondary to pain, nontoxic, cooperative Skin: Warm. Dry. Intact. No rash. Eyes: PEARTLA, EOMIs intact, sclera white, conjunctiva clear HEENT: Atraumatic. Normo-cephalic. Oral nasal mucosa pink and moist. Neck: Supple without meningismus, no lymphadenopathy. CV: Regular rate and rhythm without murmurs, heaves, lifts or thrills. Respiratory: Nonlabored breathing. There are no retractions or tachypnea. Lungs are clear to auscultation bilaterally. GI: Soft, nontender, without gross distention, bowel sounds present in all 4 quadrants. There is no pulsatile masses. There is focal right-sided CVA tenderness worse with percussion. No left-sided CVA tenderness on exam. Benign abdominal exam. No rebound, rigidity or guarding. MUSC: There is no joint swelling or bony tenderness on exam. Neuro: Cranial nerves II - XII grossly intact. No focal neurologic deficits are noted on exam. Lower extremities: There is no peripheral edema bilaterally, negative Homans sign. No palpable cords. Distal pulses are present in both lower extremities. Psych: Maintains eye contact. Cooperative. ----- ED course: The patient was seen and evaluated due to complaint of flank pain with concern for possible kidney stone. Patient CT scan of the abdomen pelvis revealed no evidence of acute ureterolithiasis or obstruction. Patient does have evidence for UTI and was treated with Macrobid and Pyridium in the ED and discharged home with the same prescriptions she was referred back to her primary care doctor and Dr. Laguerre for follow-up. This chart was dictated with the use of Genapsys software within the framework of the current electronic medical records software. Attempts were made to edit in real time, given time constraints there is the potential for inaccuracies in my dictation. Rickey Castle, DO Otherwise HISTORY OF PRESENTING ILLNESS GISEL is a 46 year old Female and was seen by me at 17-Dec-2021 20:15 for a chief complaint of flank pain (Per pt, I have had this right flank pain for a couple of hours ago, I think its another kidney stone. Pt denies urinary complaints.). Triage Information: Most recent Vital Sign Value Date Temp (F): 97.9 12-17-2021 20:10 Temp (C): 36.6 12-17-2021 20:10 Heart Rate (beats/min): 110 12-17-2021 20:10 Respirations (breaths/min): 20 12-17-2021 20:10 SpO2 (%): 98 12-17-2021 20:10 BP Systolic (mm Hg): 159 12-17-2021 20:10 BP Diastolic (mm Hg): 79 12-17-2021 20:10 PAST MEDICAL HISTORY CURRENT OR FORMER SUBSTANCE USE: Tobacco/Nicotine Use: never smoker Alcohol Use: denies Drug Use: denies,ALLERGIES/INTOLERA NCES: Allergy Allergen: Toradol Type: Drug Reaction: Hives/Urticaria Allergen: Nubain Type: Drug Reaction: Hives/Urticaria Allergen: morphine Type: Drug Reaction: Hives/Urticaria Allergen: fentanyl Type: Drug Reaction: Hives/Urticaria Allergen: Cipro Type: Drug Reaction: Hives/Urticaria Allergen: Zithromax Type: Drug Reaction: Hives/Urticaria Allergen: Zofran Type: Drug Reaction: Unknown Allergen: aspirin Type: Drug Reaction: Unknown Allergen: Demerol HCl Type: Drug Reaction: Hives/Urticaria Allergen: penicillin Type: Drug Reaction: Hives/Urticaria HEALTH HISTOR (more content not included)... [facility] Risk Screen - Adult Emergenc yon 12-17-2021 Risk Screen - Adult Emergency Preferred Language: Preferred Language: Preferred Language for Discussing Health Care (patient/designee)Wallisian Advanced Directives: Advance Directive/DNRno Family Violence Adult: Abuse Screen: Are you or have you been threatened or abused physically, emotionally, or sexually by anyoneno Learning Assessment (Patient): Learning Assessment (Patient): Patient is Able to be Assessed for Learningyes Factors Influencing Readiness to Learnpain Factors that Impact Ability to Learnnone Devices/Methods Used to Communicatecommunication board Learning Preferencesaudio Cultural Considerationsnone Developmental Considerationsnone Mormonism Considerationsnone Learning Assessment (Other Learner): Learning Assessment (Other Learner): Other learner availableno Pressure Injury/TB/Substance: Pressure Injury: Pressure Injury Present on Admissionno Do you have a coughno Smoking Statusnever smoker Alcohol Usedenies Drug Usedenies Admission Risk Screen: Significant IndicatorsComplete CAGE: CAGE: Is this an injured patient at a Tra[place] Center [place]/[place]/ [place]): no Electronic Signatures: Maria Del Carmen Casey (SHALOM) (Signed 17-Dec-2021 21:18) Authored: Preferred Language, Advanced Directives, Family Violence Adult, Learning Assessment (Patient), Learning Assessment (Other Learner), Pressure Injury/TB/Substance, Pressure Injury, CAGE Last Updated: 17-Dec-2021 21:18 by Maria Del Carmen Casey (RN) [facility] Triage - EDon 12-17-2021 Triage - ED Quick Triage: Are You no Have You Given In The Last 6 Weeksno Are You Currently Breastfeedingno Chart Review: PRIMARY ASSESSMENT ABCD Normal Findings: airway open and patent, breathing normal, circulation normal and alert and oriented ARRIVAL INFORMATION Mode of Arrival: private vehicle CHIEF COMPLAINT GISEL CARLTON is a Female patient with a chief complaint of flank pain (Per pt, I have had this right flank pain for a couple of hours ago, I think its another kidney stone. Pt denies urinary complaints.). Triage Date/Time: 17-Dec-2021 20:10 TRUDY: 3 Pain Rating (0-10): 8 = Severe Pain location: right flank Vital Signs: Temperature: 97.9F ( 36.6C) Blood Pressure: 159/79 Mean: Heart Rate: 110 Respiratory Rate: 20 Pulse Oximetry: 98% on room air, no respiratory support. Height: 5 feet 7.00 inches. 170.1 CM Weight: 224.8 pounds. Calculated 102.0 kg. 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 Symptoms Are POSITIVE For: flank pain. Risk Screens Suicide Risk Screen In the Past Month: Have you wished you were or wished you could go to sleep and not wake up no In the Past Month: Have you had any actual thoughts of killing yourself no In Your Lifetime: Have you ever done anything, started to do anything, or prepared to do anything to end your life no Sifuentes Fall Scale Screening Has the patient fallen before (or is the patient in the ED as a result of a fall) has had a fall Does the patient have an impaired gait does not have impaired gait Is the patient cognitively impaired not cognitively impaired Sifuentes Fall Scale History of falling (immediate or previous) yes (25) Secondary Diagnosis no (0) Intravenous Therapy/ Heparin/Saline Lock no (0) Gait/Transferring normal/bedrest/wheelchair (0) Ambulatory Aids none/bedrest/nurse assist (0) Mental Status oriented to own ability (0) Sifuentes Fall Risk Score: 25 Interventions: Sifuentes Fall Interventions: LOW INTERVENTIONS: *patient oriented to surroundings and call system, * patient/family falls education completed and documented, *patients fall status communicated during bedside handoff, *whiteboard updated, *mode of toileting discussed with patient, *bed in low position with brakes locked, *call light in reach, * non-skid footwear and MODERATE INTERVENTIONS: *Low Interventions Plus: * falls risk band/sticker applied to patient, *yellow non-skid footwear, *instruct to call for assistance before getting out of bed, *bed/chair/bedside commode/toilet alarms, *sensory devices/ambulatory aides available and in reach, *medications reviewed for potential side effects and care planning. TRAVEL HISTORY Travel History Coronavirus Screening: no exposure or symptoms Travel Exposure History: NO travel to International locations in the past 30 days PAIN Pain Scale Used: SERGIO Pain Rating (0-10): 8 = Severe Past Medical History: Past Medical History Reviewedyes tonsils and adenoids remved: Past Surgical History, Active carpel tunner release: Past Surgical History, Active Hernia repair: Past Surgical History, Active Cholecystectomy: Past Surgical History, Active leg surgery: Past Surgical History, Active Hysterectomy: Past Surgical History, Active COVID: Past Medical History, Active kidney infection: Past Medical History, Active kidney stones: Past Medical History, Active Hyperlipidemia: Past Medical History, Active Diabetes: Past Medical History, Active GERD: Past Medical History, Active Electronic Signatures: Maria Del Carmen Casey (SHALOM) (Signed 17-Dec-2021 20:14) Entered: Risk Screens, Pain, ABCD, Travel History, Chart Review, Scores, Past Medical History Authored: Quick Triage, Risk Screens, Pain, ABCD, Travel History, Chart Review, Scores, Past Medical History Last Updated: 17-Dec-2021 20:14 by Maria Del Carmen Casey (SHALOM) Normal [facility] UA MICROSCOPICon 12-17-2021 BACTERIA 1+ /HPF Abnormal [facility] Comment on above: Performed By: #### U AMIC #### [place] [address] Mucus Ql (Urine sed) 1+ /LPF Normal [facility] Comment on above: Performed By: #### U AMIC #### [place] [address] RBC 14 /HPF Abnormal 0-5 [facility] Comment on above: Performed By: #### U AMIC #### [address] [address] SQUAMOUS EPITH. CELLS 1 /HPF Normal [facility] Comment on above: Performed By: #### U AMIC #### [address] [address] WBC 24 /HPF Abnormal 0-5 [facility] Comment on above: Performed By: #### U AMIC #### [place] [id number] URINALYSIS WITH CULTURE IF I NDICATEDon 12-17-2021 Appearance (U) CLEAR Normal CLEAR [facility] Comment on above: Performed By: #### C BCDF #### [address] [address] Bilirubin Ql (U) Negative Normal NEGATIVE [facility] Comment on above: Performed By: #### C BCDF #### [address] [address] Color (U) Yellow Normal STRAW,YELL OW [facility] Comment on above: Performed By: #### C BCDF #### [address] [address] Glucose Ql (U) >=500(3+) Abnormal NEGATIVE [facility] Comment on above: Performed By: #### C BCDF #### [address] [address] Hemoglobin Ql (U) LARGE(3+) Abnormal NEGATIVE [facility] Comment on above: Performed By: #### C BCDF #### [address] [address] Ketones Ql (U) 5(TRACE) Abnormal NEGATIVE [facility] Comment on above: Performed By: #### C BCDF #### [address] [address] Leukocyte esterase Test strip Ql (U) SMALL(1+) Abnormal NEGATIVE [facility] Comment on above: Performed By: #### C BCDF #### [address] [address] Nitrite Ql (U) Negative Normal NEGATIVE [facility] Comment on above: Performed By: #### C BCDF #### [address] [address] pH (U) 6.0 [pH] Normal 5.0 - 8.0 [facility] Comment on above: Performed By: #### C BCDF #### [address] [address] Protein Ql (U) Negative Normal NEGATIVE [facility] Comment on above: Performed By: #### C BCDF #### [address] [address] Specific gravity (U) [Rel density] 1.036 High 1.005 - 1.035 [facility] Comment on above: Performed By: #### C BCDF #### [address] [address] Urobilinogen (U) [Mass/Vol] mg/dL Normal 0.0 - 1.9 [facility] Comment on above: Performed By: #### C BCDF #### [address] [address] URINE CULTURE,BACTERIALon URINE CULTURE,BACTERIAL PATIENT: GISEL CARLTON LOCATION: [facility]#: [id number] : 75 AGE: SEX: F ORDERED BY: RICKEY CASTLE SOURCE: URINE COLLECTED: 12/17/21 20:55 ANTIBIOTICS AT [facility].: RECEIVED : 12/18/21 15:18 SITE: R E S U L T S URINE CULTURE,BACTERIAL FINAL 12/19/21 09:11 MIXED URETHRAL LUCIA. Normal [facility] Comment on above: Performed By: #### U RINC #### [facility] [address] [place] [address] CBC Auto Differentialon 11-27 Basophils (Bld) [#/Vol] 0.04 10*3/uL [place] Basophils/100 WBC (Bld) 0.6 % [place] Eosinophils (Bld) [#/Vol] 0.68 10*3/uL High [place] Eosinophils/100 WBC (Bld) 10.0 % [place] Erythrocyte distribution width (RBC) [Entitic vol] 12.3 % 11.6 - 14.8 % [place] Hematocrit (Bld) [Volume fraction] 36.9 % 36 - 46 % [place] Hemoglobin (Bld) [Mass/Vol] 12.8 g/dL 12 - 16 g/dL [place] Immature granulocytes (Bld) [#/Vol] 0.02 10*3/uL [place] Immature granulocytes/100 WBC (Bld) 0.30 % [place] Comment on above: The IG parameter is the percentage of metamyelocytes, myelocytes and promyelocytes. An immature granulocyte count (IG) of 1% or more suggests the possibility of infection, an IG count of 3% is very likely related to an infection. Interpretation and review of laboratory results Abnormal [place] Lymphocytes (Bld) [#/Vol] 1.45 10*3/uL [place] Lymphocytes/100 WBC (Bld) 21.4 % [place] MCH (RBC) [Entitic mass] 30.5 pg 26 - 34 pg [place] MCHC (RBC) [Mass/Vol] 34.7 g/dL 31 - 3 7 g/dL [place] MCV (RBC) [Entitic vol] 87.9 fL 80 - 100 fL [place] Monocytes (Bld) [#/Vol] 0.48 10*3/uL [place] Monocytes/100 WBC (Bld) 7.1 % [place] Neutrophils (Bld) [#/Vol] 4.11 10*3/uL [place] Neutrophils/100 WBC (Bld) 60.6 % [place] Nucleated RBC (Bld) [#/Vol] 0.00 10*3/uL [place] Nucleated RBC/100 WBC (Bld) [Ratio] 0.0 % [place] Platelet mean volume (Bld) [Entitic vol] 9.0 fL Low 9.4 - 12.4 fL [place] Platelets (Bld) [#/Vol] 173 10*3/uL [place] RBC (Bld) [#/Vol] 4.20 10*6/uL [facility] WBC (Bld) [#/Vol] 6.78 10*3/uL [facility] Comprehensive metabolic 2000 panelon 12-06-2021 Albumin [Mass/Vol] 2.9 g/dL Low 3.2 - 5.2 g/dL [place] ALP [Catalytic activity/Vol] 55 U/L 40 - 150 U/L [place] ALT [Catalytic activity/Vol] 17 U/L 14 - 65 U/L [place] Anion gap [Moles/Vol] 11 mmol/L 10 - 2 0 mmol/L [place] AST [Catalytic activity/Vol] 12 U/L 0 - 45 U/L [place] Bilirubin [Mass/Vol] 0.3 mg/dL 0 - 1.3 mg/dL [place] Calcium [Mass/Vol] 8.7 mg/dL 8.4 - 10. 2 mg/dL [place] Chloride [Moles/Vol] 106 mmol/L 98 - 10 8 mmol/L [place] Creatinine [Mass/Vol] 0.50 mg/dL 0.40 - 1.10 mg/dL [place] GFR/1.73 sq M.predicted CKD-EPI (S/P/Bld) [Vol rate/Area] 117 - PINF [place] Comment on above: Estimated GFR was ca lculated using the 2020 CKD-EPI creatinine equation. Glucose [Mass/Vol] 232 mg/dL High 65 - 99 mg/dL [place] HCO3 [Moles/Vol] 28 mmol/L 21 - 32 mmol/L [place] Interpretation and review of laboratory results Abnormal [place] Potassium [Moles/Vol] 4.0 mmol/L 3.5 - 5.1 mmol/L [place] Protein [Mass/Vol] 5.7 g/dL Low 6 - 8 g/dL [facility] alth Sodium [Moles/Vol] 141 mmol/L 135 - 145 mmol/L [place] Urea nitrogen [Mass/Vol] 11 mg/dL 8 - 25 mg/dL [place] Urea nitrogen/Creatinine [Mass ratio] 22.0 mg/mg High 10 - 20 [facility] has implemented the eGFR calculation approach that does not have a coefficient for race that conforms to the NKF-ASN Task Force Recommendations. [facility] Glucose (Bld) [Mass/Vol]on 0 12-06-2021 Glucose [Mass/Vol] 196 mg/dL High 65 - 99 mg/dL [place] Interpretation and review of laboratory results Abnormal [facility] Magnesiumon 12-06-2021 Magnesium [Mass/Vol] 2.1 mg/dL 1.6 - 2 .4 mg/dL [place] Magnesium [Mass/Vol]on 12-06 Interpretation and review of laboratory results Normal [facility] CBC Auto Differentialon 06-0 Basophils (Bld) [#/Vol] 0.04 10*3/uL [place] Basophils/100 WBC (Bld) 0.8 % [place] Eosinophils (Bld) [#/Vol] 0.92 10*3/uL High [place] Eosinophils/100 WBC (Bld) 18.5 % [place] Erythrocyte distribution width (RBC) [Entitic vol] 12.4 % 11.6 - 14.8 % [place] Hematocrit (Bld) [Volume fraction] 35.9 % Low 36 - 46 % [place] Hemoglobin (Bld) [Mass/Vol] 12.3 g/dL 12 - 16 g/dL [place] Immature granulocytes (Bld) [#/Vol] 0.01 10*3/uL [place] Immature granulocytes/100 WBC (Bld) 0.20 % [place] Comment on above: The IG parameter is the percentage of metamyelocytes, myelocytes and promyelocytes. An immature granulocyte count (IG) of 1% or more suggests the possibility of infection, an IG count of 3% is very likely related to an infection. Interpretation and review of laboratory results Abnormal [place] Lymphocytes (Bld) [#/Vol] 1.94 10*3/uL [place] Lymphocytes/100 WBC (Bld) 39.1 % [place] MCH (RBC) [Entitic mass] 30.2 pg 26 - 34 pg [place] MCHC (RBC) [Mass/Vol] 34.3 g/dL 31 - 3 7 g/dL [place] MCV (RBC) [Entitic vol] 88.2 fL 80 - 100 fL [place] Monocytes (Bld) [#/Vol] 0.39 10*3/uL [place] Monocytes/100 WBC (Bld) 7.9 % [place] Neutrophils (Bld) [#/Vol] 1.66 10*3/uL Low [place] Neutrophils/100 WBC (Bld) 33.5 % [place] Nucleated RBC (Bld) [#/Vol] 0.00 10*3/uL [place] Nucleated RBC/100 WBC (Bld) [Ratio] 0.0 % [place] Platelet mean volume (Bld) [Entitic vol] 9.1 fL Low 9.4 - 12.4 fL [place] Platelets (Bld) [#/Vol] 173 10*3/uL [place] RBC (Bld) [#/Vol] 4.07 10*6/uL [facility] WBC (Bld) [#/Vol] 4.96 10*3/uL [facility] Comprehensive metabolic 2000 panelon 12-05-2021 Albumin [Mass/Vol] 2.8 g/dL Low 3.2 - 5.2 g/dL [place] ALP [Catalytic activity/Vol] 53 U/L 40 - 150 U/L [place] ALT [Catalytic activity/Vol] 14 U/L 14 - 65 U/L [place] Anion gap [Moles/Vol] 8 mmol/L Low 10 - 2 0 mmol/L [place] AST [Catalytic activity/Vol] 10 U/L 0 - 45 U/L [place] Bilirubin [Mass/Vol] 0.3 mg/dL 0 - 1.3 mg/dL [place] Calcium [Mass/Vol] 8.4 mg/dL 8.4 - 10. 2 mg/dL [place] Chloride [Moles/Vol] 106 mmol/L 98 - 10 8 mmol/L [place] Creatinine [Mass/Vol] 0.50 mg/dL 0.40 - 1.10 mg/dL [place] GFR/1.73 sq M.predicted CKD-EPI (S/P/Bld) [Vol rate/Area] 117 - PINF [place] Comment on above: Estimated GFR was ca lculated using the 2020 CKD-EPI creatinine equation. Glucose [Mass/Vol] 195 mg/dL High 65 - 99 mg/dL [place] HCO3 [Moles/Vol] 31 mmol/L 21 - 32 mmol/L [place] Interpretation and review of laboratory results Abnormal [place] Potassium [Moles/Vol] 4.0 mmol/L 3.5 - 5.1 mmol/L [place] Protein [Mass/Vol] 5.5 g/dL Low 6 - 8 g/dL [facility] Sodium [Moles/Vol] 141 mmol/L 135 - 145 mmol/L [place] Urea nitrogen [Mass/Vol] 8 mg/dL 8 - 25 mg/dL [place] Urea nitrogen/Creatinine [Mass ratio] 16.0 mg/mg 10 - 20 [facility] has implemented the eGFR calculation approach that does not have a coefficient for race that conforms to the NKF-ASN Task Force Recommendations. [facility] Glucose (Bld) [Mass/Vol]on 0 12-05-2021 Glucose [Mass/Vol] 137 mg/dL High 65 - 99 mg/dL [place] Interpretation and review of laboratory results Abnormal [facility] Glucose [Mass/Vol] 156 mg/dL High 65 - 99 mg/dL [place] Interpretation and review of laboratory results Abnormal [facility] Glucose [Mass/Vol] 92 mg/dL 65 - 99 mg/dL [place] Interpretation and review of laboratory results Normal [facility] Glucose [Mass/Vol] 204 mg/dL High 65 - 99 mg/dL [place] Interpretation and review of laboratory results Abnormal [facility] Magnesiumon 12-05-2021 Magnesium [Mass/Vol] 2.1 mg/dL 1.6 - 2 .4 mg/dL [place] Magnesium [Mass/Vol]on 12-05 Interpretation and review of laboratory results Normal [facility] CT ANGIOGRAM CHEST ABDOMEN P ELVISon 12-04-2021 CT ANGIOGRAM CHEST ABDOMEN PELVIS EXAMINATION: CT ANGIOGRAM CHEST ABDOMEN PELVIS HISTORY: ORDERING SYSTEM PROVIDED HISTORY: hypotension right flank pain, TECHNOLOGIST PROVIDED HISTORY: Illness/Other Reason for exam: hypotension right flank pain Encounter Type: Initial Additional signs and symptoms: low blood pressure for current stay in the ER, most recent blood pressure of 93/66, previous blood pressure of 97/68 ORDERING SYSTEM PROVIDED DIAGNOSIS CODES: COMPARISON: Renal stone CT 12/03/2021, CT abdomen pelvis 11/15/2021. Chest and pelvis CT 01/26/2021. TECHNIQUE: Unenhanced helical imaging of the chest was performed. Subsequently following uneventful administration 75 mL Isovue 370-IV contrast, helical imaging is repeated in arterial phase. Multiplanar reformatted images are submitted. Dose reduction techniques were achieved by using automated exposure control and/or adjustment of mA and/or kV according to patient size and/or use of iterative reconstruction technique. 3D volume rendered images were also created on a separate workstation and submitted as part of the examination. FINDINGS: AORTA: The thoracic and abdominal aorta are normal in caliber with no atherosclerotic disease and patent major branches of the thoracic and abdominal aorta. Bilateral common, internal and external iliac arteries are normal as well as are the imaged femoral arteries. CHEST: MEDIASTINUM: Cardiac size is normal. There is no pericardial effusion. There are no cardiac chamber or pulmonary artery filling defects. The thoracic aorta is intact with normal origins of the great vessels. The esophagus is normal. Central airways are patent. No mediastinal or hilar adenopathy. The imaged thyroid is within normal limits. LUNGS AND PLEURA:Bilateral air trapping. No airway occlusion or airspace consolidation. No suspicious pulmonary nodules. No pleural effusion. OSSEOUS STRUCTURES: No acute osseous abnormality with mild degenerative disease throughout the lower thoracic spine. ABDOMEN: SOLID ORGANS: The liver, spleen, adrenals, kidneys, pancreas, biliary ducts are normal. The hepatic vessels are not well opacified. Gallbladder is absent. The right hepatic lobe artery arises directly from the celiac artery. BOWEL: The stomach, proximal small bowel and imaged portions of the colon are normal in course and caliber. No bowel wall thickening or pneumatosis. MESENTERY AND RETROPERITONEUM: There is no free fluid, fluid collection or adenopathy. The IVC is intact. IVC is adequately distended. OSSEOUS STRUCTURES: No acute osseous abnormality. PELVIS: GENITOURINARY:Prior hysterectomy. Distal ureters, urinary bladder and vagina are all intact. Ovaries are stable. BOWEL: Distal small bowel loops, rectosigmoid colon, cecum, imaged ascending colon and appendix are intact. No bowel wall thickening. MESENTERY: There is no free fluid, fluid collection or adenopathy. VASCULATURE: Pelvic vasculature is patent. OSSEOUS STRUCTURES: There is no acute osseous abnormality. IMPRESSION: AORTA: 1. Intact thoracic and abdominal aorta with normal caliber, patent major branches and no atherosclerotic disease. 2. Normal appearance of bilateral common, internal, external iliac arteries and imaged femoral arteries. CHEST: 1. Bilateral air trapping. No airway occlusion or bronchial wall thickening. 2. Intermediate density circumscribed fluid collection is increased in volume when compared to prior CT from 01/26/2021 but likely represents a developing pericardiac cyst. No large mediastinal hematoma. This finding could be re-evaluated with follow-up nonemergent noncontrast chest CT to reassess the density of this fluid. 3. No thoracic adenopathy. 4. No cardiac chamber or pulmonary arterial filling defects. ABDOMEN/PELVIS: 1. No acute abdominal or pelvic inflammatory process. 2. Normal appendix and no adenopathy. VKR/f Workstation ID: [id number] Dictated by: KENNY QUICK on ThuDec 04, 2021 2:38:14 AM EDT Transcribed by: GELY STRICKLAND on ThuDec 04, 2021 2:42:41 AM EDT Finalized by: KENNY QUICK on ThuDec 04, 2021 3:39:51 AM EDT Normal [facility] Comment on above: Order Comment: Injur y/Trauma or Illness?:Illness/Other How long have you had these symptoms (acute/chronic)?:Acute Reason for exam?:hypotension right flank pain Type of Exam?:Initial Additional signs and symptoms?:low blood pressure for current stay in the ER, most recent blood pressure of 93/66, previous blood pressure of 97/68 CT Angiogram Chest Abdomen P vison 12-04-2021 AORTA: 1. Intact thoracic and abdominal aorta with normal caliber, patent major branches and no atherosclerotic disease. 2. Normal appearance of bilateral common, internal, external iliac arteries and imaged femoral arteries. CHEST: 1. Bilateral air trapping. No airway occlusion or bronchial wall thickening. 2. Intermediate density circumscribed fluid collection is increased in volume when compared to prior CT from 01/26/2021 but likely represents a developing pericardiac cyst. No large mediastinal hematoma. This finding could be re-evaluated with follow-up nonemergent noncontrast chest CT to reassess the density of this fluid. 3. No thoracic adenopathy. 4. No cardiac chamber or pulmonary arterial filling defects. ABDOMEN/PELVIS: 1. No acute abdominal or pelvic inflammatory process. 2. Normal appendix and no adenopathy. VKR/hff Workstation ID: [id number] [facility] EXAMINATION: CT ANGIOGRAM CHEST ABDOMEN PELVIS HISTORY: ORDERING SYSTEM PROVIDED HISTORY: hypotension right flank pain, TECHNOLOGIST PROVIDED HISTORY: Illness/Other Reason for exam: hypotension right flank pain Encounter Type: Initial Additional signs and symptoms: low blood pressure for current stay in the ER, most recent blood pressure of 93/66, previous blood pressure of 97/68 ORDERING SYSTEM PROVIDED DIAGNOSIS CODES: COMPARISON: Renal stone CT 12/03/2021, CT abdomen pelvis 11/15/2021. Chest and pelvis CT 01/26/2021. TECHNIQUE: Unenhanced helical imaging of the chest was performed. Subsequently following uneventful administration 75 mL Isovue 370-IV contrast, helical imaging is repeated in arterial phase. Multiplanar reformatted images are submitted. Dose reduction techniques were achieved by using automated exposure control and/or adjustment of mA and/or kV according to patient size and/or use of iterative reconstruction technique. 3D volume rendered images were also created on a separate workstation and submitted as part of the examination. FINDINGS: AORTA: The thoracic and abdominal aorta are normal in caliber with no atherosclerotic disease and patent major branches of the thoracic and abdominal aorta. Bilateral common, internal and external iliac arteries are normal as well as are the imaged femoral arteries. CHEST: MEDIASTINUM: Cardiac size is normal. There is no pericardial effusion. There are no cardiac chamber or pulmonary artery filling defects. The thoracic aorta is intact with normal origins of the great vessels. The esophagus is normal. Central airways are patent. No mediastinal or hilar adenopathy. The imaged thyroid is within normal limits. LUNGS AND PLEURA:Bilateral air trapping. No airway occlusion or airspace consolidation. No suspicious pulmonary nodules. No pleural effusion. OSSEOUS STRUCTURES: No acute osseous abnormality with mild degenerative disease throughout the lower thoracic spine. ABDOMEN: SOLID ORGANS: The liver, spleen, adrenals, kidneys, pancreas, biliary ducts are normal. The hepatic vessels are not well opacified. Gallbladder is absent. The right hepatic lobe artery arises directly from the celiac artery. BOWEL: The stomach, proximal small bowel and imaged portions of the colon are normal in course and caliber. No bowel wall thickening or pneumatosis. MESENTERY AND RETROPERITONEUM: There is no free fluid, fluid collection or adenopathy. The IVC is intact. IVC is adequately distended. OSSEOUS STRUCTURES: No acute osseous abnormality. PELVIS: GENITOURINARY:Prior hysterectomy. Distal ureters, urinary bladder and vagina are all intact. Ovaries are stable. BOWEL: Distal small bowel loops, rectosigmoid colon, cecum, imaged ascending colon and appendix are intact. No bowel wall thickening. MESENTERY: There is no free fluid, fluid collection or adenopathy. VASCULATURE: Pelvic vasculature is patent. OSSEOUS STRUCTURES: There is no acute osseous abnormality. [facility] Kenny Quick MD - 12/04/2021 EXAMINATION: CT ANGIOGRAM CHEST ABDOMEN PELVIS HISTORY: ORDERING SYSTEM PROVIDED HISTORY: hypotension right flank pain, TECHNOLOGIST PROVIDED HISTORY: Illness/Other Reason for exam: hypotension right flank pain Encounter Type: Initial Additional signs and symptoms: low blood pressure for current stay in the ER, most recent blood pressure of 93/66, previous blood pressure of 97/68 ORDERING SYSTEM PROVIDED DIAGNOSIS CODES: COMPARISON: Renal stone CT 12/03/2021, CT abdomen pelvis 11/15/2021. Chest and pelvis CT 01/26/2021. TECHNIQUE: Unenhanced helical imaging of the chest was performed. Subsequently following uneventful administration 75 mL Isovue 370-IV contrast, helical imaging is repeated in arterial phase. Multiplanar reformatted images are submitted. Dose reduction techniques were achieved by using automated exposure control and/or adjustment of mA and/or kV according to patient size and/or use of iterative reconstruction technique. 3D volume rendered images were also created on a separate workstation and submitted as part of the examination. FINDINGS: AORTA: The thoracic and abdominal aorta are normal in caliber with no atherosclerotic disease and patent major branches of the thoracic and abdominal aorta. Bilateral common, internal and external iliac arteries are normal as well as are the imaged femoral arteries. CHEST: MEDIASTINUM: Cardiac size is normal. There is no pericardial effusion. There are no cardiac chamber or pulmonary artery filling defects. The thoracic aorta is intact with normal origins of the great vessels. The esophagus is normal. Central airways are patent. No mediastinal or hilar adenopathy. The imaged thyroid is within normal limits. LUNGS AND PLEURA:Bilateral air trapping. No airway occlusion or airspace consolidation. No suspicious pulmonary nodules. No pleural effusion. OSSEOUS STRUCTURES: No acute osseous abnormality with mild degenerative disease throughout the lower thoracic spine. ABDOMEN: SOLID ORGANS: The liver, spleen, adrenals, kidneys, pancreas, biliary ducts are normal. The hepatic vessels are not well opacified. Gallbladder is absent. The right hepatic lobe artery arises directly from the celiac artery. BOWEL: The stomach, proximal small bowel and imaged portions of the colon are normal in course and caliber. No bowel wall thickening or pneumatosis. MESENTERY AND RETROPERITONEUM: There is no free fluid, fluid collection or adenopathy. The IVC is intact. IVC is adequately distended. OSSEOUS STRUCTURES: No acute osseous abnormality. PELVIS: GENITOURINARY:Prior hysterectomy. Distal ureters, urinary bladder and vagina are all intact. Ovaries are stable. BOWEL: Distal small bowel loops, rectosigmoid colon, cecum, imaged ascending colon and appendix are intact. No bowel wall thickening. MESENTERY: There is no free fluid, fluid collection or adenopathy. VASCULATURE: Pelvic vasculature is patent. OSSEOUS STRUCTURES: There is no acute osseous abnormality. IMPRESSION: AORTA: 1. Intact thoracic and abdominal aorta with normal caliber, patent major branches and no atherosclerotic disease. 2. Normal appearance of bilateral common, internal, external iliac arteries and imaged femoral arteries. CHEST: 1. Bilateral air trapping. No airway occlusion or bronchial wall thickening. 2. Intermediate density circumscribed fluid collection is increased in volume when compared to prior CT from 01/26/2021 but likely represents a developing pericardiac cyst. No large mediastinal hematoma. This finding could be re-evaluated with follow-up nonemergent noncontrast chest CT to reassess the density of this fluid. 3. No thoracic adenopathy. 4. No cardiac chamber or pulmonary arterial filling defects. ABDOMEN/PELVIS: 1. No acute abdominal or pelvic inflammatory process. 2. Normal appendix and no adenopathy. 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 CT kidney stone abdomen pelvis without IV contrast. Coronal sagittal reformats. FINDINGS: Visualized portions liver, spleen, pancreas, adrenal glands, appendix, left kidney, urinary bladder, and other pelvic structures are unremarkable. Status post cholecystectomy. 3 mm right superior renal stone without hydroureteronephrosis. No discrete large radiopaque obstructing ureteral stone. Multiple calcified pelvic phleboliths. Colonic diverticula without diverticulitis. Moderate amount of stool within the large bowel. No evidence for small bowel obstruction, large ascites, or free air. No acute bony abnormality. IMPRESSION: 3 mm right superior renal stone without hydroureteronephrosis. No discrete large radiopaque obstructing ureteral stone. Multiple calcified pelvic phleboliths. Colonic diverticula without diverticulitis. 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 No discrete large radiopaque obstructing ureteral stone. Multiple calcified pelvic phleboliths. Colonic diverticula without diverticulitis. 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 CT kidney stone abdomen pelvis without IV contrast. Coronal sagittal reformats. FINDINGS: Visualized portions liver, spleen, pancreas, adrenal glands, appendix, left kidney, urinary bladder, and other pelvic structures are unremarkable. Status post cholecystectomy. 3 mm right superior renal stone without hydroureteronephrosis. No discrete large radiopaque obstructing ureteral stone. Multiple calcified pelvic phleboliths. Colonic diverticula without diverticulitis. Moderate amount of stool within the large bowel. No evidence for small bowel obstruction, large ascites, or free air. No acute bony abnormality. 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 CT kidney stone abdomen pelvis without IV contrast. Coronal sagittal reformats. FINDINGS: Visualized portions liver, spleen, pancreas, adrenal glands, appendix, left kidney, urinary bladder, and other pelvic structures are unremarkable. Status post cholecystectomy. 3 mm right superior renal stone without hydroureteronephrosis. No discrete large radiopaque obstructing ureteral stone. Multiple calcified pelvic phleboliths. Colonic diverticula without diverticulitis. Moderate amount of stool within the large bowel. No evidence for small bowel obstruction, large ascites, or free air. No acute bony abnormality. IMPRESSION: 3 mm right superior renal stone without hydroureteronephrosis. No discrete large radiopaque obstructing ureteral stone. Multiple calcified pelvic phleboliths. Colonic diverticula without diverticulitis. Workstation ID: [id number] [place] CT Kidney StoneOrdered By: Fernanda Najera on 12-04-2021 [place] Work Phone: D-Dimer, Quantitativeon Fibrin D-dimer FEU (PPP) [Mass/Vol] 0.57 High [place] Interpretation and review of laboratory results Abnormal [place] A D-dimer concentrat ion of <0.5 micrograms per milliliter FEU is considered a low probability for pulmonary embolus (PE) and deep venous thrombosis (DVT). Results of this test should always be interpreted in conjunction with the patient's medical history,clinical presentation, and other findings. Clinical diagnosis should not be based on the results of the D-dimer alone. [facility] ECG 12 Leadon 12-04-2021 Atrial Rate 88 BPM [place] P Purchase 53 degrees [place] P-R Interval 140 ms [place] Q-T Interval 412 ms [place] QRS Duration 92 ms [place] QTC Calculation (Bezet) 498 ms [place] R Purchase 16 degrees [place] T Purchase 45 degrees [place] Ventricular Rate 88 BPM [facility] Sinus rhythm with Premature atrial complexes Prolonged QT Abnormal ECG Confirmed by Marguerite Holbrook MD ([id number]) on 12/04/2021 3:01:08 PM MUSE [place] Atrial Rate 91 BPM [place] P Purchase 42 degrees [place] P-R Interval 132 ms [place] Q-T Interval 414 ms [place] QRS Duration 92 ms [place] QTC Calculation (Bezet) 509 ms [place] R Purchase 9 degrees [place] T Purchase 43 degrees [place] Ventricular Rate 91 BPM [facility] Sinus rhythm with Premature atrial complexes Low voltage QRS Prolonged QT Abnormal ECG ECG Cart Interpretation see physician note for interpretation. Confirmed by Danielle Villaseñor ([id number]) on 12/04/2021 2:52:53 PM MUSE [place] EKGon 12-04-2021 Ordered by an unspec ified provider. [facility] Glucose (Bld) [Mass/Vol]on 0 12-04-2021 Glucose [Mass/Vol] 207 mg/dL High 65 - 99 mg/dL [place] Interpretation and review of laboratory results Abnormal [facility] Glucose [Mass/Vol] 184 mg/dL High 65 - 99 mg/dL [place] Interpretation and review of laboratory results Abnormal [facility] Glucose [Mass/Vol] 173 mg/dL High 65 - 99 mg/dL [place] Interpretation and review of laboratory results Abnormal [facility] Glucose [Mass/Vol] 167 mg/dL High 65 - 99 mg/dL [place] Interpretation and review of laboratory results Abnormal [facility] Hepatic function 2000 panelo n 12-04-2021 Albumin [Mass/Vol] 3.5 g/dL 3.2 - 5.2 g/dL [place] ALP [Catalytic activity/Vol] 66 U/L 40 - 150 U/L [place] ALT [Catalytic activity/Vol] 19 U/L 14 - 65 U/L [place] AST [Catalytic activity/Vol] 13 U/L 0 - 45 U/L [place] Bilirubin [Mass/Vol] 0.3 mg/dL 0 - 1.3 mg/dL [place] Bilirubin.conjugated [Mass/Vol] mg/dL 0 - 0.4 mg/dL [place] Interpretation and review of laboratory results Normal [place] Protein [Mass/Vol] 7.0 g/dL 6 - 8 g/dL [facility] [place] Lactate [Moles/Vol]on 2021 Interpretation and review of laboratory results Normal [facility] Lactic Acid, Plasmaon 2021 Lactate [Moles/Vol] 0.8 mmol/L 0.6 - 2 mmol/L [place] Lipaseon 12-04-2021 Lipase [Catalytic activity/Vol] 168 U/L 73 - 393 U/L [place] Lipase [Catalytic activity/V ol]on 12-04-2021 Interpretation and review of laboratory results Normal [facility] Magnesium Levelon 12-04-2021 Magnesium [Mass/Vol] 2.2 mg/dL 1.6 - 2 .4 mg/dL [place] Magnesium [Mass/Vol]on 12-04 Interpretation and review of laboratory results Normal [facility] Troponinon 12-04-2021 Troponin I ng/L NINF - 59 ng/L [place] Troponin I Interpretation Normal [facility] UrinalysisOrdered By: Belgica Glover on 12-04-2021 Bacteria Auto Ql (U) None Seen None Se en /hpf [place] Bilirubin Ql (U) Negative Negative [facility] th Clarity Refractometry automated (U) Cloudy Abnormal Clear [place] Color (U) Yellow Colorless, Yellow [place] Epithelial cells.squamous Auto (Urine sed) [#/Area] 18 High [place] Glucose Auto test strip (U) [Mass/Vol] >=500 Abnormal Negative mg/dL [place] Hemoglobin Auto test strip Ql (U) Large Abnormal Negative [place] Interpretation and review of laboratory results Abnormal [place] Ketones (U) [Mass/Vol] Trace Abnormal Negat isabella mg/dL [place] Leukocyte esterase Auto test strip Ql (U) Moderate Abnormal Negative [facility] h Mucus Auto (Urine sed) [#/Area] Many Abnormal None Seen, Rare /lpf [place] Nitrite Auto test strip Ql (U) Negative Negative [place] pH (U) 5.5 [pH] 5 - 7 [place] Protein (U) [Mass/Vol] Negative Negat isabella mg/dL [place] RBC Auto (Urine sed) [#/Area] High [place] Specific gravity (U) [Rel density] 1.045 High 1.005 - 1.025 [place] Urobilinogen (U) [Mass/Vol] mg/dL NINF - 2.0 mg/dL [place] WBC Auto (Urine sed) [#/Area] 8 High [place] Microscopic examinat ion is performed on all urinalysis samples and only positive findings are reported. The test for blood on the chemical analytic portion of urinalysis may also be positive due to hemoglobinuria and myoglobinuria and if red blood cells are present they are quantified by microscopic examination. [facility] Urine Drug Screenon 12-05-19 22 Amphetamines Ql (U) Not detected None Detected [place] Comment on above: Urine Amphetamine Cu toff: < 1000 ng/mL = None Detected Barbiturates Screen Ql (U) Not detected None Detected [place] Comment on above: Urine Barbiturates C utoff: < 200 ng/mL = None Detected Benzodiazepines Ql (U) Not detected None Detected [place] Comment on above: Urine Benzodiazepine Cutoff: < 200 ng/mL = None Detected Buprenorphine Ql (U) Not detected None Detected [place] Comment on above: Urine Buprenorphine Cutoff: < 5 ng/mL = None Detected Cannabinoids Screen Ql (U) Not detected None Detected [place] Comment on above: Urine Cannabinoids C utoff: < 50 ng/mL = None Detected Cocaine Ql (U) Not detected None Detected [place] Comment on above: Urine Cocaine Cutoff : < 300 ng/mL = None Detected fentaNYL+Norfentanyl Screen Ql (U) Not detected None Detected [place] Comment on above: Urine Fentanyl Cutof f: < 1 ng/mL = None Detected Interpretation and review of laboratory results Normal [place] Methadone Screen Ql (U) Not detected None Detected [place] Comment on above: Urine Methadone Cuto ff: < 300 ng/mL = None Detected Opiates Screen Ql (U) Not detected None Detected [place] Comment on above: Urine Opiates Cutoff : < 300 ng/mL = None Detected oxyCODONE Ql (U) Not detected None Detected [place] Comment on above: Urine Oxycodone Cuto ff: < 100 ng/mL = None Detected Screen results shoul d be used for treatment purposes only. [facility] Basic metabolic 2000 panelon 12-03-2021 Anion gap [Moles/Vol] 10 mmol/L 10 - 2 0 mmol/L [place] Calcium [Mass/Vol] 9.2 mg/dL 8.4 - 10. 2 mg/dL [place] Chloride [Moles/Vol] 107 mmol/L 98 - 10 8 mmol/L [place] Creatinine [Mass/Vol] 0.81 mg/dL 0.40 - 1.10 mg/dL [place] GFR/1.73 sq M.predicted CKD-EPI (S/P/Bld) [Vol rate/Area] 91 - PINF [place] Comment on above: Estimated GFR was ca lculated using the 2020 CKD-EPI creatinine equation. Glucose [Mass/Vol] 163 mg/dL High 65 - 99 mg/dL [place] HCO3 [Moles/Vol] 27 mmol/L 21 - 32 mmol/L [place] Interpretation and review of laboratory results Abnormal [place] Potassium [Moles/Vol] 3.6 mmol/L 3.5 - 5.1 mmol/L [place] Sodium [Moles/Vol] 140 mmol/L 135 - 145 mmol/L [place] Urea nitrogen [Mass/Vol] 17 mg/dL 8 - 25 mg/dL [place] Urea nitrogen/Creatinine [Mass ratio] 21.0 mg/mg High 10 - 20 [facility] has implemented the eGFR calculation approach that does not have a coefficient for race that conforms to the NKF-ASN Task Force Recommendations. [facility] CBC Auto Differentialon 06-0 Basophils (Bld) [#/Vol] 0.06 10*3/uL [place] Basophils/100 WBC (Bld) 1.0 % [place] Eosinophils (Bld) [#/Vol] 0.56 10*3/uL High [place] Eosinophils/100 WBC (Bld) 8.9 % [place] Erythrocyte distribution width (RBC) [Entitic vol] 12.1 % 11.6 - 14.8 % [place] Hematocrit (Bld) [Volume fraction] 39.3 % 36 - 46 % [place] Hemoglobin (Bld) [Mass/Vol] 13.8 g/dL 12 - 16 g/dL [place] Immature granulocytes (Bld) [#/Vol] 0.01 10*3/uL [place] Immature granulocytes/100 WBC (Bld) 0.20 % [place] Comment on above: The IG parameter is the percentage of metamyelocytes, myelocytes and promyelocytes. An immature granulocyte count (IG) of 1% or more suggests the possibility of infection, an IG count of 3% is very likely related to an infection. Interpretation and review of laboratory results Abnormal [place] Lymphocytes (Bld) [#/Vol] 2.01 10*3/uL [place] Lymphocytes/100 WBC (Bld) 32.0 % [place] MCH (RBC) [Entitic mass] 30.9 pg 26 - 34 pg [place] MCHC (RBC) [Mass/Vol] 35.1 g/dL 31 - 3 7 g/dL [place] MCV (RBC) [Entitic vol] 88.1 fL 80 - 100 fL [place] Monocytes (Bld) [#/Vol] 0.52 10*3/uL [place] Monocytes/100 WBC (Bld) 8.3 % [place] Neutrophils (Bld) [#/Vol] 3.12 10*3/uL [place] Neutrophils/100 WBC (Bld) 49.6 % [place] Nucleated RBC (Bld) [#/Vol] 0.00 10*3/uL [place] Nucleated RBC/100 WBC (Bld) [Ratio] 0.0 % [place] Platelet mean volume (Bld) [Entitic vol] 9.1 fL Low 9.4 - 12.4 fL [place] Platelets (Bld) [#/Vol] 237 10*3/uL [place] RBC (Bld) [#/Vol] 4.46 10*6/uL [facility] WBC (Bld) [#/Vol] 6.28 10*3/uL [facility] CT Kidney Stoneon 12-03-2021 Radiology Study observation (narrative) [place] UR Microalbumin/Creatinine R atio Randomon 11-19-2021 Microalbumin/creatinin e Ratio 16.3 mg/G Normal 0.0-30.0 [facility] Comment on above: Performed By: #### U MACR #### [facility] [address] [place] [address] UR Creatinine Random 116.6 mg/dL Normal Not [facility] Comment on above: Performed By: #### U MACR #### [facility] [address] [place] [address] UR Microalbumin Random 1.90 mg/dL Normal Not [facility] Comment on above: Performed By: #### U MACR #### [facility] [address] [place] [address] CT ABDOMEN PELVIS WITHOUT CO NTRASTon 11-15-2021 CT ABDOMEN PELVIS WITHOUT CONTRAST EXAMINATION: CT ABDOMEN PELVIS WITHOUT CONTRAST HISTORY: ORDERING SYSTEM PROVIDED HISTORY: Flank pain, kidney stone suspected; Nausea/vomiting; right sided abdominal pain and right flank pain, COMPARISON: 09/28/2021 TECHNIQUE: Helically acquired images were obtained of the abdomen and pelvis without IV contrast. No oral contrast was administered. AEC is utilized. 2-D reconstructed images are provided. FINDINGS: Cholecystectomy. There is a 2 mm nonobstructive right renal calculus. There is no hydronephrosis or hydroureter. The upper abdominal solid organs are unremarkable. There is no bowel obstruction or free air. Fluid in the small large bowel suggesting infectious and/or inflammatory enterocolitis. There is no ascites. There is no evidence of aortic aneurysm. There is no retroperitoneal adenopathy. There is no appendicitis or diverticulitis. There are no pelvic masses or loculated fluid collections. Hysterectomy. The bladder is unremarkable. IMPRESSION: 2 mm nonobstructive right renal calculus. No hydronephrosis or hydroureter. Fluid in the small large bowel suggesting infectious and/or inflammatory enterocolitis. FOLLOW-UP: Follow-up as clinically indicated. Workstation ID: [id number] Dictated by: ANGELI CHANG on ThuNovember 15, 2021 6:49:18 AM EDT Transcribed by: ANGELI CHANG on ThuNovember 15, 2021 6:49:18 AM EDT Finalized by: ANGELI CHANG on ThuNovember 15, 2021 6:49:18 AM EDT Normal [facility] Comment on above: Order Comment: Injur y/Trauma or Illness?:Illness/Other How long have you had these symptoms (acute/chronic)?:Acute Reason for exam?:Nausea/vomiting, right sided abdominal pain and right flank pain Type of Exam?:Initial Additional signs and symptoms?: CBC AUTO DIFFon 11-12-2021 BASO # 0.1 103/ul Normal 0.0-0.1 [facility] Comment on above: Performed By: #### C BC #### [facility] [address] [place] [address] Dr. Teressa Mayen Basophils/100 WBC (Bld) 0.7 % Normal 0.2-2.0 [facility] Comment on above: Performed By: #### C BC #### [facility] [address] [address] [address] Teressa Mayen EO # 0.1 103/ul Normal 0.0-0.7 [facility] Comment on above: Performed By: #### C BC #### [facility] [address] [place] [address] Dr. Teressa Mayen Eosinophils/100 WBC (Bld) 1.3 % Normal 0.9-7.0 [facility] Comment on above: Performed By: #### C BC #### [facility] [address] [place] [address] Dr. Teressa Mayen Erythrocyte distribution width (RBC) [Ratio] 11.9 % Normal 11.0-15.0 [facility] Comment on above: Performed By: #### C BC #### [facility] [address] [place] [address] Dr. Teressa Mayen Hematocrit (Bld) [Volume fraction] 46.5 % Normal 36.0-48.0 [facility] Comment on above: Performed By: #### C BC #### [facility] [address] [place] [address] Dr. Teressa Mayen Hemoglobin (Bld) [Mass/Vol] 16.1 g/dL Critically high 12.0-16.0 [facility] Comment on above: Performed By: #### C BC #### [facility] [address] [place] [address] Dr. Teressa Mayen IG # 0.03 10e3/ul Normal 0.00-0.03 [facility] Comment on above: Performed By: #### C BC #### [facility] [address] [place] [address] Dr. Teressa Mayen IG % 0.3 % Normal 0.0-0.5 [facility] Comment on above: Performed By: #### C BC #### [facility] [address] [place] [address] Dr. Teressa Mayen LYMPH # 1.9 103/ul Normal 1.2-3.8 [facility] Comment on above: Performed By: #### C BC #### [facility] [address] [place] [address] Dr. Teressa Mayen Lymphocytes/100 WBC (Bld) 19.1 % Critically low 20.5-60.0 [facility] Comment on above: Performed By: #### C BC #### [facility] [address] [place] [address] Dr. Teressa Mayen MANUAL DIFF REQ NO Normal [facility] Comment on above: Performed By: #### C BC #### [facility] [address] [address] [address] Teressa Mayen MCH (RBC) [Entitic mass] 29.9 pg Normal 26.7-34.0 [facility] Comment on above: Performed By: #### C BC #### [facility] [address] [address] [address] Teressa Mayen MCHC (RBC) [Mass/Vol] 34.6 g/dL Normal 29.9-35.2 [facility] Comment on above: Performed By: #### C BC #### [facility] [address] [address] [address] Teressa Mayen MCV (RBC) [Entitic vol] 86.4 fL Normal 81.0-99.0 [facility] Comment on above: Performed By: #### C BC #### [facility] [address] [place] [address] Dr. Teressa Mayen MONO # 0.6 103/ul Normal 0.3-0.8 [facility] Comment on above: Performed By: #### C BC #### [facility] [address] [address] [address] Teressa Mayen Monocytes/100 WBC (Bld) 5.8 % Normal 1.7-12.0 [facility] Comment on above: Performed By: #### C BC #### [facility] [address] [address] [address] Teressa Mayen NEUT # 7.2 103/ul Critically high 1.4-6.5 [facility] Comment on above: Performed By: #### C BC #### [facility] [address] [address] [address] Teressa Mayen Neutrophils/100 WBC (Bld) 72.8 % Normal 43.0-75.0 [facility] Comment on above: Performed By: #### C BC #### [facility] [address] [address] [address] Teressa Mayen Platelet mean volume (Bld) [Entitic vol] 9.4 fL Critically low 9.5-13.5 [facility] Comment on above: Performed By: #### C BC #### [facility] [address] [place], [place] [address] Dr. Teressa Mayen PLT 267 103/ul Normal 150-450 [facility] Comment on above: Performed By: #### C BC #### [facility] [address] [place], [place] [address] Dr. Teressa Mayen RBC 5.38 106/ul Normal 4.20-5.40 [facility] Comment on above: Performed By: #### C BC #### [facility] [address] [place], [place] [address] Dr. Teressa Mayen WBC 9.9 103/ul Normal 4.0-11.0 [facility] Comment on above: Performed By: #### C BC #### [facility] [address], [place] [address] ABD/PELVIS WO CONon 11-12 CT ABD/PELVIS WO CON EXAM: CT SCAN OF E ABDOMEN AND PELVIS WITHOUT INTRAVENOUS CONTRAST DATE OF EXAM: 11/11/2021 11:22 PM EDT HISTORY: 46-year-old female with nausea vomiting and diarrhea. She had a right shoulder injury and is unable to move her arm. Patient has also had a hysterectomy. COMPARISON: Plain film abdomen dated 07/14/2019 TECHNIQUE: CT examination of the abdomen and pelvis with sagittal and coronal reformations was performed without intravenous contrast. CT dose lowering techniques were used, to include: automated exposure control, adjustment for patient size, and/or use of iterative reconstruction. CONTRAST: None. Note: The exam is limited because some types of pathology may not be adequately demonstrated due to lack of contrast enhancement. FINDINGS: Lower Chest: Normal Free Air: None. Liver: Liver is enlarged. Gallbladder: Removed Common Bile Duct: Normal Pancreas: Normal Spleen: Normal Adrenal Glands: Normal Kidneys: Right Kidney: Nonobstructing stone in the upper pole. Right Ureter: Portions of the right ureter which are visualized measure within normal. Left Kidney: Normal. Left Ureter: Portions of the left ureter which are visualized measure within normal limits. GI Tract: Stomach: Fluid-filled stomach measures within normal limits. Small Bowel: Small bowel measures within normal limits allowing for mild prominence of small bowel folds. Appendix: Evaluation of the appendix is limited due to lack of IV and oral contrast. On axial image 90 there is question of an appendiceal stump versus a small appendix. Large Bowel: Diverticulosis.There is fluid which is seen within the small and large bowel which measures within normal limits. Mesentery/Peritoneum: Subcentimeter lymph nodes in the small bowel mesentery. Vasculature: Normal Lymph Nodes: Normal Abdominal Wall: Normal Bladder: Normal Reproductive: [3. Musculoskeletal: Normal Free Fluid: None. IMPRESSION: 1. Fluid-filled bowel, measures within normal. Please correlate for viral etiology. 2. Cholecystectomy. 3. Nonobstructing right-sided nephrocalcinosis. Electronically authenticated by: GABY PFEIFFER Date: 2021-11-12 00:33 Normal [facility] CULTURE URINEon 11-12-2021 CULTURE URINE Culture Observations : HEAVY GROWTH OF MIXED GENITAL LUCIA. NO POTENTIAL PATHOGENS SEEN. Normal [facility] Comment on above: Performed By: #### U RCX #### [facility] [address] [place] [address] Dr. Teressa Mayen Cov[facility] ([facility])on 10-27 SARS-CoV-2 (COVID-19) RNA JENNIFER+probe Ql (Unsp spec) Not detected Normal NOT DETECTED [facility] Comment on above: Result Comment: When diagnostic testing is negative, the possibility of a false negative should be considered in the context of a patient's recent exposures and the presence of clinical signs and symptoms consistent with SARS-CoV-2. This test is not yet approved or cleared by the [place] FDA. When there are no FDA-approved or cleared tests available, and other criteria are met, FDA can make tests available under an emergency access mechanism called an Emergency Use Authorization (EUA). The EUA for this test is supported by the [place] Superintendent of Health and Human Service's declaration that circumstances exist to justify the emergency use of in vitro diagnostics for the detection and/or diagnosis of the virus that causes COVID-19. This EUA will remain in effect for the duration of the COVID-19 declaration justifying emergency of IVDs, unless it is terminated or revoked by the FDA (after which the test may no longer be used). Performed By: #### C VDTBH #### [facility] [address] [address] [address] Teressa Mayen DRUG SCREEN RAPID (URINE)on 11-12-2021 AMP Negative Normal NEGATIVE [facility] Comment on above: Performed By: #### D JOSE R MARR, ERUR #### [facility] [address] [address] [address] Teressa Maeyn BAR Negative Normal NEGATIVE [facility] Comment on above: Performed By: #### D JOSE R MARR, ERUR #### [facility] [address] [address] [address] Teressa Mayen BUP Negative Normal NEGATIVE [facility] Comment on above: Performed By: #### D JOSE R MARR, ERUR #### [facility] [address] [address] [address] Teressa Mayen BZO Negative Normal NEGATIVE [facility] Comment on above: Performed By: #### D JOSE R MARR, ERUR #### [facility] [address] [address] [address] Teressa Mayen HOME Negative Normal NEGATIVE [facility] Comment on above: Performed By: #### D JOSE R MARR, ERUR #### [facility] [address] [address] [address] Teressa Mayen CUT-OFFS SEE BELOW Normal [facility] Comment on above: Result Comment: AMP (Amphetamine): 500ng/mL, BAR (Barbituates): 200 ng/mL, BZO (Benzodiazepines): 150 ng/mL, BUP (Buprenorphine): 10 ng/mL, HOME (Cocaine): 150 ng/mL, mAMP (Methamphetamine): 500 ng/mL, MTD (Methadone): 200 ng/mL, OPI (Opiates): 100 ng/mL, OXY (Oxycodone): 100 ng/mL, PCP (Phencyclidine): 25 ng/mL, PPX (Propoxyphene): 300 ng/mL, THC (Cannabinoids): 50 ng/mL, TCA (Trycyclic Antidepressants): 300 ng/mL Performed By: #### D JOSE R MARR, ERUR #### [facility] [address] [address] [address] Teressa Mayen DRUG CUT HEADER DRUG CLASS TEST SYST EM CUT-OFF CONCENTRATIONS ARE FOLLOWS: Normal [facility] Comment on above: Performed By: #### D MEGAN MARRRO, ERUR #### [facility] [address] [address] [address] Teressa Mayen mAMP Negative Normal NEGATIVE [facility] Comment on above: Performed By: #### D CURLY MARRICRO, ERUR #### [facility] [address] [address] [address] Teressa Mayen MTD Negative Normal NEGATIVE [facility] Comment on above: Performed By: #### D MEGAN MARRRO, ERUR #### [facility] [address] [address] [address] Teressa Mayen OPI Negative Normal NEGATIVE [facility] Comment on above: Performed By: #### D MEGAN MARRRO, ERUR #### [facility] [address] [address] [address] Teressa Mayen OXY Negative Normal NEGATIVE [facility] Comment on above: Performed By: #### D MEGAN MARRRO, ERUR #### [facility] [address] [address] [address] Teressa Mayen PCP Negative Normal NEGATIVE [facility] Comment on above: Performed By: #### D MEGAN MARRRO, ERUR #### [facility] [address] [address] [address] Teressa Mayen PPX Negative Normal NEGATIVE [facility] Comment on above: Performed By: #### D CURLY MARRICRO, ERUR #### [facility] [address] [address] [address] Teressa Mayen TCA Negative Normal NEGATIVE [facility] Comment on above: Performed By: #### D CURLY MARRICRO, ERUR #### [facility] [address] [address] [address] Teressa Mayen THC Negative Normal NEGATIVE [facility] Comment on above: Performed By: #### D JOSE R MARR, ERUR #### [facility] [address] [address] [address] Teressa MANZANARES URINE PROFILEon 2 Bilirubin Ql (U) Negative Normal NEGATIVE [facility] Comment on above: Performed By: #### D JOSE R MARR, ERUR #### [facility] [address] [address] [address] Teressa Mayen Clarity (U) SL CLOUDY Abnormal CLEAR [facility] Comment on above: Performed By: #### D JOSE R MARR, ERUR #### [facility] [address] [address] [address] Teressa Mayen Color (U) YELLOW Normal YELLOW [facility] Comment on above: Performed By: #### D JOSE R MARR, ERUR #### [facility] [address] [address] [address] Teressa VILLATORO A micrscopic examina tion will be performed if indicated. Normal [facility] Comment on above: Performed By: #### D JOSE R MARR, ERUR #### [facility] [address] [address] [address] Teressa Mayen Glucose Ql (U) >1000 Abnormal NEGATIVE [facility] Comment on above: Performed By: #### D JOSE R MARR, ERUR #### [facility] [address] [address] [address] Teressa Mayen Hemoglobin Ql (U) TRACE-INTACT Abnormal NEGATIVE [facility] Comment on above: Performed By: #### D JOSE R MARR, ERUR #### [facility] [address] [address] [address] Teressa Mayen Ketones Ql (U) 15 mg/dl Abnormal NEGATIVE [facility] Comment on above: Performed By: #### D JOSE R MARR, ERUR #### [facility] [address] [address] [address] Teressa Mayen LEUKOCYTES MODERATE Abnormal NEGATIVE [facility] Comment on above: Performed By: #### D JOSE R MARR, ERUR #### [facility] [address] [address] [address] Teressa Mayen Nitrite Ql (U) Negative Normal NEGATIVE [facility] Comment on above: Performed By: #### D JOSE R MARR, ERUR #### [facility] [address] [address] [address] Teressa Mayen pH (U) 5.5 [pH] Normal 5-9 [facility] Comment on above: Performed By: #### D JOSE R MARR, ERUR #### [facility] [address] [place] [address] Dr. Teressa Mayen SPEC GRAVITY >=1.030 Abnormal 1.005-<=1. 025 [facility] Comment on above: Performed By: #### D JOSE R MARR, ERUR #### [facility] [address] [address] [address] Teressa Mayen UA PROTEIN Negative Normal NEGATIVE/ TRACE [facility] Comment on above: Performed By: #### D JOSE R MARR, ERUR #### [facility] [address] [place] [address] Dr. Teressa Mayen UR MICRO IND INDICATED Normal [facility] Comment on above: Performed By: #### D JOSE R MARR, ERUR #### [facility] [address] [address] [address] Teressa Mayen Urobilinogen Qn (U) 0.2 {Diaz'U}/dL Normal 0.2 - 1. 0 [facility] Comment on above: Performed By: #### D JOSE R MARR, ERUR #### [facility] [address] [place] [address] Dr. Teressa Mayen POINT OF CARE GLUCOSEon 05 Glucose [Mass/Vol] 289 mg/dL Critically high 74-106 T [facility] Comment on above: Performed By: #### P OCGLUC #### [facility] [address] [address] [address] Teressa Mayen Glucose [Mass/Vol] 169 mg/dL Critically high 74-106 T [facility] Comment on above: Performed By: #### P OCGLUC #### [facility] [address] [place] [address] Dr. Teressa Mayen PROF 14(COMP METB)on 022 Albumin [Mass/Vol] 3.9 g/dL Normal 3.4-5.0 [facility] Comment on above: Performed By: #### C MP #### [facility] [address] [place] [address] Dr. Teressa Mayen Albumin/Globulin [Mass ratio] 1.1 {ratio} Normal [facility] Comment on above: Performed By: #### C MP #### [facility] [address] [place] [address] Dr. Teressa Mayen ALP [Catalytic activity/Vol] 83 U/L Normal 46-116 [facility] Comment on above: Performed By: #### C MP #### [facility] [address] [place] [address] Dr. Teressa Mayen ALT [Catalytic activity/Vol] 18 U/L Normal 14-59 [facility] Comment on above: Performed By: #### C MP #### [facility] [address] [place] [address] Dr. Teressa Mayen Anion gap [Moles/Vol] 15.8 mmol/L Normal [facility] Comment on above: Performed By: #### C MP #### [facility] [address] [place] [address] Dr. Teressa Mayen AST [Catalytic activity/Vol] 10 U/L Critically low 15-37 [facility] Comment on above: Performed By: #### C MP #### [facility] [address] [place] [address] Dr. Teressa Mayen Bilirubin [Mass/Vol] 0.6 mg/dL Normal 0.2-1.0 [facility] Comment on above: Performed By: #### C MP #### [facility] [address] [place] [address] Dr. Teressa Mayen Calcium [Mass/Vol] 9.0 mg/dL Normal 8.5-10.1 [facility] Comment on above: Performed By: #### C MP #### [facility] [address] [address] [address] Teressa Mayen Chloride [Moles/Vol] 104 mmol/L Normal 98-107 [facility] Comment on above: Performed By: #### C MP #### [facility] [address] [address] [address] Teressa Mayen CO2 [Moles/Vol] 25.1 mmol/L Normal 21.0-32.0 [facility] Comment on above: Performed By: #### C MP #### [facility] [address] [place] [address] Dr. Teressa Mayen Creatinine [Mass/Vol] 0.82 mg/dL Normal 0.55-1.02 [facility] Comment on above: Performed By: #### C MP #### [facility] [address] [place] [address] Dr. Teressa Mayen EGFR-AF GIBRALTARIAN >60 Normal >=60 [facility] Comment on above: Performed By: #### C MP #### [facility] [address] [place] [address] Dr. Teressa Mayen EGFR-NON AF GIBRALTARIAN >60 Normal >=60 [facility] Comment on above: Performed By: #### C MP #### [facility] [address] [place] [address] Dr. Teressa Mayen Globulin (S) [Mass/Vol] 3.7 g/dL Normal [facility] Comment on above: Performed By: #### C MP #### [facility] [address] [address] [address] Teressa Mayen Glucose [Mass/Vol] 280 mg/dL Critically high 74-106 T [facility] Comment on above: Performed By: #### C MP #### [facility] [address] [place] [address] Dr. Teressa Mayen Potassium [Moles/Vol] 3.9 mmol/L Normal 3.5-5.1 [facility] Comment on above: Performed By: #### C MP #### [facility] [address] [address] [address] Teressa Mayen Protein [Mass/Vol] 7.6 g/dL Normal 6.4-8.2 [facility] Comment on above: Performed By: #### C MP #### [facility] [address] [address] [address] Teressa Mayen Sodium [Moles/Vol] 141 mmol/L Normal 136-145 [facility] Comment on above: Performed By: #### C MP #### [facility] [address] [address] [address] Teressa Mayen Urea nitrogen [Mass/Vol] 17.0 mg/dL Normal 7.0-18.0 [facility] Comment on above: Performed By: #### C MP #### [facility] [address] [address] [address] Teressa Mayen Urea nitrogen/Creatinine [Mass ratio] 20.7 mg/mg Normal [facility] Comment on above: Performed By: #### C MP #### [facility] [address] [address] [address] Teressa Mayen URINE MICROSCOPIC ONLYon BACTERIA SMALL Abnormal NONE SEEN [facility] Comment on above: Performed By: #### D JOSE R MARR, ERUR #### [facility] [address] [address] [address] Teressa Mayen Bacteria identified Cx Nom (U) INDICATED Normal [facility] Comment on above: Performed By: #### D JOSE R MARR, ERUR #### [facility] [address] [address] [address] Teressa Mayen CAST NONE SEEN Normal NONE SEEN [facility] Comment on above: Performed By: #### D JOSE R MARR, ERUR #### [facility] [address] [address] [address] Teressa Mayen Crystals LM Nom (Urine sed) NONE SEEN Normal NONE SEEN [facility] Comment on above: Performed By: #### D JOSE R MARR, ERUR #### [facility] [address] [place], [place] [address] Dr. Teressa Mayen Epithelial cells LM Ql (Urine sed) MODERATE Abnormal NONE SEEN /RARE [facility] Comment on above: Performed By: #### D MEGAN MARRRO, ERUR #### [facility] [address] [place], [place] [address] Dr. Teressa Mayen MUCOUS SMALL Abnormal NONE SEEN [facility] Comment on above: Performed By: #### D JOSE R MARR, ERUR #### [facility] [address] [place], [place] [address] Dr. Teressa Mayen RBC 2-5 Abnormal 0-2 [facility] Comment on above: Performed By: #### D JOSE R MARR, ERUR #### [facility] [address], [place] [address] Dr. Teressa Mayen WBC 5-10 Abnormal NONE SEEN [facility] Comment on above: Performed By: #### D JOSE R MARR, ERUR #### [facility] [address], [place] [address] Dr. 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 [facility] MRI CERVICAL SPINE WO CONTRAST : 11/07/2021 CLINICAL HISTORY: M54.12 Cervical radiculopathy ICD10. COMPARISON: Cervical spine CT 03/10/2017 TECHNIQUE: ROUTINE FINDINGS: The spine is visualized from the craniovertebral junction through the T3-4 level on the diagnostic sagittal sequences. The visualized spinal cord is normal in signal and caliber. The vertebral body heights, alignment, bone marrow signal, and paraspinous soft tissues are unremarkable. The C2-C3 through C4-5 level is unremarkable. At the C5-C6 level, there is a small to moderate-sized broad-based central disc protrusion with thickening of the posterior longitudinal ligament and mild posterior lateral endplate osteophytosis, which results in mild to moderate central spinal stenosis and left neural foraminal narrowing. At the C6-7 level, there is moderate diffuse disc bulging with a broad-based central disc protrusion and thickening of the posterior longitudinal ligament, which results in mild to moderate central spinal stenosis. The C7-T1 through upper visualized thoracic levels are unremarkable. [facility] Suhail Joiner MD - 11/07/2021 MRI CERVICAL SPINE WO CONTRAST : 11/07/2021 CLINICAL HISTORY: M54.12 Cervical radiculopathy ICD10. COMPARISON: Cervical spine CT 03/10/2017 TECHNIQUE: ROUTINE FINDINGS: The spine is visualized from the craniovertebral junction through the T3-4 level on the diagnostic sagittal sequences. The visualized spinal cord is normal in signal and caliber. The vertebral body heights, alignment, bone marrow signal, and paraspinous soft tissues are unremarkable. The C2-C3 through C4-5 level is unremarkable. At the C5-C6 level, there is a small to moderate-sized broad-based central disc protrusion with thickening of the posterior longitudinal ligament and mild posterior lateral endplate osteophytosis, which results in mild to moderate central spinal stenosis and left neural foraminal narrowing. At the C6-7 level, there is moderate diffuse disc bulging with a broad-based central disc protrusion and thickening of the posterior longitudinal ligament, which results in mild to moderate central spinal stenosis. The C7-T1 through upper visualized thoracic levels are unremarkable. IMPRESSION: DEGENERATIVE DISC DISEASE C5-6 AND C6-7, WHICH RESULTS IN MILD TO MODERATE CENTRAL SPINAL STENOSIS AND LEFT C5-6 NEURAL FORAMINAL NARROWING. L2 Phone: Radiology Study observation (narrative) L2 Phone: MRI CERVICAL SPINE WO CONTRA STOrdered By: Suhail Joiner on 11-07-2021 L2 Phone: XR Shoulder Complete Right*o n 10-29-2021 XR Shoulder Complete Right* HISTORY: FINDINGS: Mild osteophyte formation involves the AC joint. Mild down-sloping acromion. No fracture or dislocation or rotator cuff calcification is seen. Upper chest is clear. IMPRESSION: 1. Mild arthritis, no AC separation or fracture. Report reported and signed by Tunde Lou on 10/29/2021 0935 Normal [facility] CT KIDNEY STONEon 10-17-2021 CT KIDNEY STONE EXAMINATION: CT KIDNEY STONE HISTORY: ORDERING SYSTEM PROVIDED HISTORY: Flank pain, kidney stone suspected, TECHNOLOGIST PROVIDED HISTORY: Illness/Other Reason for exam: left sided abd pain since this PM, nki, Hx stones Encounter Type: Initial Additional signs and symptoms: nausea, sx: complete hyster, GB, hernia repair ORDERING SYSTEM PROVIDED DIAGNOSIS CODES: COMPARISON: 07/30/2021 TECHNIQUE: Dose reduction techniques were achieved by using automated exposure control and/or adjustment of mA and/or kV according to patient size and/or use of iterative reconstruction technique. FINDINGS: The visualized lung bases are clear. The liver is unremarkable. Patient is status post cholecystectomy. The spleen, adrenals, and pancreas are unremarkable. The bilateral kidneys demonstrate no evidence for obstructive uropathy. There is a nonobstructing 4 mm calculus visualized within the upper pole of the right kidney. Punctate nonobstructing calculus visualized within the lower pole of the left kidney. No evidence for small/large bowel obstruction. There is mild wall thickening and stranding noted along the descending colon, findings may be secondary to a nonspecific colitis.. The appendix is visualized and is unremarkable. No evidence for free intraperitoneal air significant fluid collections. The urinary bladder is collapsed, limiting evaluation. The uterus is surgically absent. The soft tissues are unremarkable. The bony structures are intact with no evidence for an acute osseous abnormality. IMPRESSION: 1. There is mild wall thickening and stranded visualized along the descending colon, findings may be secondary to a nonspecific colitis. 2. There is no evidence for obstructive uropathy. There is a nonobstructing 4 mm calculus visualized within the upper pole of the right kidney. Punctate nonobstructing calculus visualized within the lower pole of the left kidney. Workstation ID: [id number] Dictated by: FELIPE SANCHEZ V. on ThuOct 16, 2021 11:48:13 PM EDT Transcribed by: FELIPE SANCHEZ V. on ThuOct 16, 2021 11:48:13 PM EDT Finalized by: FELIPE SANCHEZ V. on ThuOct 16, 2021 11:48:13 PM EDT [facility] Comment on above: Order Comment: Injur y/Trauma or Illness?:Illness/Other How long have you had these symptoms (acute/chronic)?:Acute Reason for exam?:left sided abd pain since this PM, nki, Hx stones pt unable to bring right arm above head due to shoulder injury Type of Exam?:Initial Additional signs and symptoms?:nausea, sx: complete hyster, GB, hernia repair Albumin [Mass/volume] in Ser um or PlasmaOrdered By: Vivek Ceballos on 09-30-2021 Albumin [Mass/Vol] 3.9 g/dL 3.2-5.5 [facility] Automated erythrocytes count in urine sediment (number/area)Ordered By: Vivek Ceballos on 09-30-2021 RBC Auto (Urine sed) [#/Area] Innumerable [HPF] [facility] Automated leukocytes count i n urine sediment (number/area)Ordered By: Vivek Ceballos on 09-30-2021 WBC Auto (Urine sed) [#/Area] 20-49 [HPF] [facility] Automated urine sediment vinod cium oxalate crystal count by microscopy (number/high powOrdered By: Vivek Ceballos on 09-30-2021 Calcium oxalate crystals LM.HPF (Urine sed) [#/Area] 4+ [HPF] [facility] Basophils Auto (Bld) [#/Vol] Ordered By: Vivek Ceballos on 09-30-2021 Basophils (Bld) [#/Vol] 0.1 10*3/uL 0.0-0.2 [facility] Basophils/100 WBC Auto (Bld) Ordered By: Vivek Ceballos on 09-30-2021 Basophils/100 WBC (Bld) 0.9 % [facility] Bilirubin Test strip Ql (U)O rdered By: Vivek Ceballos on 09-30-2021 Bilirubin Ql (U) Negative Negative [facility] Blood hemoglobin measurement (mass/volume)Ordered By: Vivek Ceballos on 09-30-2021 Hemoglobin (Bld) [Mass/Vol] 15.2 g/dL 11.8-15.4 [facility] Blood leukocytes automated c ount (number/volume)Ordered By: Vivek Ceballos on 09-30-2021 WBC (Bld) [#/Vol] 7.1 10*3/uL 4.5-11.0 [facility] Color Auto (U)Ordered By: Juan Ceballos on 09-30-2021 Color (U) Yellow Yellow [facility] Creatinine and Glomerular fi ltration rate.predicted panel (S/P/Bld)Ordered By: Vivek Ceballos on 09-30-2021 Creatinine [Mass/Vol] 0.59 mg/dL 0.44-1.03 [facility] Eosinophils Auto (Bld) [#/Vo l]Ordered By: Vivek Ceballos on 09-30-2021 Eosinophils (Bld) [#/Vol] 0.2 10*3/uL 0.0-0.45 [facility] Eosinophils/100 WBC Auto (Bl d)Ordered By: Vivek Ceballos on 09-30-2021 Eosinophils/100 WBC (Bld) 2.9 % [facility] Erythrocyte distribution wid th Auto (RBC) [Ratio]Ordered By: Vivek Ceballos on 09-30-2021 Erythrocyte distribution width (RBC) [Ratio] 13.0 % 11.9-15.3 [facility] Estimated glomerular filtrat ion rate (GFR) non- AmericanOrdered By: Vivek Ceballos on 09-30-2021 GFR/1.73 sq M.predicted among non-blacks MDRD (S/P/Bld) [Vol rate/Area] > 60 mL/Min [facility] Globulin Calc (S) [Mass/Vol] Ordered By: Vivek Ceballos on 09-30-2021 Globulin (S) [Mass/Vol] 3.2 g/dL [facility] HCG ( test) IA.rapi d Ql (U)Ordered By: JACINTA PHILLIPS on 09-30-2021 HCG ( test) Ql (U) Negative [facility] Hematocrit Auto (Bld) [Volum e fraction]Ordered By: Vivek Ceballos on 09-30-2021 Hematocrit (Bld) [Volume fraction] 44.1 % 34.0-46.4 [facility] Ketones Auto test strip (U) [Mass/Vol]Ordered By: Vivek Ceballos on 09-30-2021 Ketones (U) [Mass/Vol] Trace Negative [facility] and Cell countsOrdered By: Vivek Ceballos on 09-30-2021 Nucleated RBC/100 WBC (Bld) [Ratio] 0.2 % 0-0.5 [facility] Laboratory - UrinalysisOrder ed By: Vivek Ceballos on 09-30-2021 Hyaline casts LM Ql (Urine sed) 0-8 [LPF] [facility] Lymphocytes Auto (Bld) [#/Vo l]Ordered By: Vivek Ceballos on 09-30-2021 Lymphocytes (Bld) [#/Vol] 2.5 10*3/uL 1.00-4.8 [facility] Lymphocytes/100 WBC Auto (Bl d)Ordered By: Vivek Ceballos on 09-30-2021 Lymphocytes/100 WBC (Bld) 35.6 % [facility] MCH Auto (RBC) [Entitic mass ]Ordered By: Vivek Ceballos on 09-30-2021 MCH (RBC) [Entitic mass] 30.5 pg 24.7-34.3 [facility] MCHC Auto (RBC) [Mass/Vol]Or dered By: Vivek Ceballos on 09-30-2021 MCHC (RBC) [Mass/Vol] 34.4 g/dL 32.0-35.0 [facility] MCV Auto (RBC) [Entitic vol] Ordered By: Vivek Ceballos on 09-30-2021 MCV (RBC) [Entitic vol] 88.7 fL 80-100 [facility] Monocytes Auto (Bld) [#/Vol] Ordered By: Vivek Ceballos on 09-30-2021 Monocytes (Bld) [#/Vol] 0.7 10*3/uL 0.0-0.8 [facility] Monocytes/100 WBC Auto (Bld) Ordered By: Vivek Cbeallos on 09-30-2021 Monocytes/100 WBC (Bld) 9.8 % [facility] Neutrophils Auto (Bld) [#/Vo l]Ordered By: Vivek Ceballos on 09-30-2021 Neutrophils (Bld) [#/Vol] 3.6 10*3/uL 1.8-7.7 [facility] Neutrophils/100 WBC Auto (Bl d)Ordered By: Vivek Ceballos on 09-30-2021 Neutrophils/100 WBC (Bld) 50.8 % [facility] Nitrite Test strip Ql (U)Ord ered By: Vivek Ceballos on 09-30-2021 Nitrite Ql (U) Negative Negative [facility] No Panel InformationOrdered By: Vivek Ceballos on 09-30-2021 Estimated GFR () > 60 mL/Min [facility] Comment on above: GFR estimated refere nce range: According to KDOQI guidelines, <60 ml/min/1.73m2 is sufficient to diagnose a patient with chronic kidney disease. Pharmacy Creatinine Clearance (Chem 146.26 [facility] Platelet mean volume Auto (B ld) [Entitic vol]Ordered By: Vivek Ceballos on 09-30-2021 Platelet mean volume (Bld) [Entitic vol] 7.3 fL 6.3-10.7 [facility] Platelets Auto (Bld) [#/Vol] Ordered By: Vivek Ceballos on 09-30-2021 Platelets (Bld) [#/Vol] 239 10*3/uL 150-450 [facility] Protein Auto test strip (U) [Mass/Vol]Ordered By: Vivek Ceballos on 09-30-2021 Protein (U) [Mass/Vol] 30 mg/dL Negative [facility] Protein [Mass/volume] in Ser um or PlasmaOrdered By: Vivek Ceballos on 09-30-2021 Protein [Mass/Vol] 7.1 g/dL 6.1-7.9 [facility] RBC Auto (Bld) [#/Vol]Ordere d By: Vivek Ceballos on 09-30-2021 RBC (Bld) [#/Vol] 4.97 10*6/uL 3.60-5.00 [facility] Serum or plasma alanine slaughter otransferase measurement without P-5'-P (enzymatic activiOrdered By: Vivek Ceballos on 09-30-2021 ALT No additional P-5'-P [Catalytic activity/Vol] 15 U/L 10-60 [facility] Serum or plasma albumin/glob ulin mass ratioOrdered By: Vivek Ceballos on 09-30-2021 Albumin/Globulin [Mass ratio] 1.2 {ratio} [facility] Serum or plasma alkaline shelby sphatase measurement (enzymatic activity/volume)Ordered By: Vivek Ceballos on 09-30-2021 ALP [Catalytic activity/Vol] 69 U/L 32-92 [facility] Serum or plasma aspartate am inotransferase measurement (enzymatic activity/volume)Ordered By: Vivek Ceballos on 09-30-2021 AST [Catalytic activity/Vol]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 software within the framework of the current electronic medical records software. Attempts were made to edit in real time, given time constraints there is the potential for inaccuracies in my dictation. Rickey Castle, DO HISTORY OF PRESENTING ILLNESS GISEL is a 46 year old Female and was seen by me at 10-Jun-2021 02:25 for a chief complaint of flank pain (PT TO ED WITH C/O RIGHT FLANK PAIN FOR PAST 1 HOUR ALONG WITH ONE EPISODE OF N/V.)(1). Triage Information: Most recent Vital Sign Value Date Temp (F): 98.3 06-10-2021 02:26 Temp (C): 36.8 06-10-2021 02:26 Heart Rate (beats/min): 120 06-10-2021 02:26 Respirations (breaths/min): 20 06-10-2021 02:26 SpO2 (%): 96 06-10-2021 02:26 BP Systolic (mm Hg): 151 06-10-2021 02:26 BP Diastolic (mm Hg): 85 06-10-2021 02:26 PAST MEDICAL HISTORY CURRENT OR FORMER SUBSTANCE USE: Tobacco/Nicotine Use: never smoker Alcohol Use: denies Drug Use: denies,ALLERGIES/INTOLERA NCES: Allergy Allergen: Toradol Type: Drug Reaction: Hives/Urticaria Allergen: Nubain Type: Drug Reaction: Hives/Urticaria Allergen: morphine Type: Drug Reaction: Hives/Urticaria Allergen: fentanyl Type: Drug Reaction: Hives/Urticaria Allergen: Cipro Type: Drug Reaction: Hives/Urticaria Allergen: Zithromax Type: Drug Reaction: Hives/Urticaria Allergen: Zofran Type: Drug Reaction: Unknown Allergen: aspirin Type: Drug Reaction: Unknown Allergen: Demerol HCl Type: Drug Reaction: Hives/Urticaria Allergen: penicillin Type: Drug R (more content not included)... [facility] Risk Screen - Adult Emergenc yon 06-10-2021 Risk Screen - Adult Emergency Preferred Language: Preferred Language: Preferred Language for Discussing Health Care (patient/designee)Wallisian Advanced Directives: Advance Directive/DNRno Family Violence Adult: Abuse Screen: Are you or have you been threatened or abused physically, emotionally, or sexually by anyoneno Learning Assessment (Patient): Learning Assessment (Patient): Patient is Able to be Assessed for Learningyes Factors Influencing Readiness to Learnacuteness of illness; interest in learning Factors that Impact Ability to Learnnone Devices/Methods Used to Communicatenone Learning Preferencesverbal instruction; written material Cultural Considerationsnone Developmental Considerationsnone Mormonism Considerationsnone Learning Assessment (Other Learner): Learning Assessment (Other Learner): Other learner availableno Pressure Injury/TB/Substance: Pressure Injury: Do you have a coughno Smoking Statusnever smoker Alcohol Usedenies Drug Usedenies Drug 2 Usedenies Admission Risk Screen: Significant IndicatorsComplete CAGE: CAGE: Is this an injured patient at a Tra[place] Center [place]/[place]/ [place] no Electronic Signatures: Juana Xie (SHALOM) (Signed 10-Jun-2021 02:35) Authored: Preferred Language, Advanced Directives, Family Violence Adult, Learning Assessment (Patient), Learning Assessment (Other Learner), Pressure Injury/TB/Substance, Pressure Injury, CAGE Last Updated: 10-Jun-2021 02:35 by Juana Xie (SHALOM) [facility] Triage - EDon 06-10-2021 Triage - ED Quick Triage: Are You no Have You Given In The Last 6 Weeksno Are You Currently Breastfeedingno The patient and/or guardian verbally acknowledges placement for services into the following (when Urgent Care Service hours are operating):emergency department Chart Review: PRIMARY ASSESSMENT GISEL Yomaira CARLTON's primary assessment is Within Defined Limits. The airway is open and patent. Breathing spontaneous and unlabored with clear breath sounds bilaterally. Circulation is normal with good peripheral pulses. Skin is warm and dry and color is normal for race. ARRIVAL INFORMATION Means of Arrival: Ambulatory Mode of Arrival: private vehicle Arrival From: home Accompanied By: self Language: Spoken Language Preferred: Wallisian Reading Language Preferred: Wallisian Heel Cover Softener Requested: no wastewater treatment operator was requested MDRO: History of MDRO: no Present on Arrival: Device Present on Arrival to ED: no CHIEF COMPLAINT GISEL CARLTON is a Female patient with a chief complaint of flank pain (PT TO ED WITH C/O RIGHT FLANK PAIN FOR PAST 1 HOUR ALONG WITH ONE EPISODE OF N/V.). Triage Date/Time: 10-Jun-2021 02:16 TRUDY: 3 Pain Rating (0-10): 8 = Severe Pain location: RIGHT FLANK Vital Signs: Temperature: 98.3F ( 36.8C) taken temporal Blood Pressure: 151/85 Mean: Heart Rate: 120 Respiratory Rate: 20 Pulse Oximetry: 96% on room air, no respiratory support. Height: 5 feet 7.00 inches. 170.1 CM Weight: 220.4 pounds. Calculated 100.0 kg. 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 Symptoms Are POSITIVE For: flank pain and nausea. Symptoms Are Negative For: anorexia, chills, dysuria, fever, frequency, hematuria, malaise and urgency. Risk Screens Suicide Risk Screen In the Past Month: Have you wished you were or wished you could go to sleep and not wake up no In the Past Month: Have you had any actual thoughts of killing yourself no In Your Lifetime: Have you ever done anything, started to do anything, or prepared to do anything to end your life no Sifuentes Fall Scale Screening Has the patient fallen before (or is the patient in the ED as a result of a fall) has not had a fall Does the patient have an impaired gait does not have impaired gait Is the patient cognitively impaired not cognitively impaired Interventions: Sifuentes Fall Interventions: LOW INTERVENTIONS: *patient oriented to surroundings and call system, * patient/family falls education completed and documented, *patients fall status communicated during bedside handoff, *whiteboard updated, *mode of toileting discussed with patient, *bed in low position with brakes locked, *call light in reach, * non-skid footwear PAST MEDICAL HISTORY Immunization History: Last Known Tetanus Immunization: Unknown TRAVEL HISTORY Travel History Coronavirus Screening: no exposure or symptoms Travel Exposure History: NO travel to International locations in the past 30 days PAIN Pain Scale Used: SERGIO Pain Rating (0-10): 8 = Severe Past Medical History: Past Medical History Reviewedyes tonsils and adenoids remved: Past Surgical History, Active carpel tunner release: Past Surgical History, Active Hernia repair: Past Surgical History, Active Cholecystectomy: Past Surgical History, Active leg surgery: Past Surgical History, Active Hysterectomy: Past Surgical History, Active COVID: Past Medical History, Active kidney infection: Past Medical History, Active kidney stones: Past Medical History, Active Hyperlipidemia: Past Medical History, Active Diabetes: Past Medical History, Active GERD: Past Medical History, Active Electronic Signatures: Juana Xie (RN) (Signed 10-Jun-2021 02:32) Entered: Risk Screens, Pain, Arrival, ABCD, Immunizations, Travel History, Chart Review, Scores, Past Medical History Authored: Quick Triage, Risk Screens, Pain, Arrival, ABCD, Immunizations, Travel History, Chart Review, Scores, Past Medical History Last Updated: 10-Jun-2021 02:32 by Juana Xie (RN) Normal [facility] UA MICROSCOPICon 06-10-2021 Mucus Ql (Urine sed) 1+ /LPF Normal [facility] Comment on above: Performed By: #### U AMIC #### [place] [address] RBC (U) [#/Vol] /uL Abnormal 0-5 [facility] Comment on above: Performed By: #### U AMIC #### [place] [address] SQUAMOUS EPITH. CELLS 1 /HPF Normal [facility] Comment on above: Performed By: #### U AMIC #### [place] [address] WBC 73 /HPF Abnormal 0-5 [facility] Comment on above: Performed By: #### U AMIC #### [place] [address] URINALYSIS WITH CULTURE IF I NDICATEDon 06-10-2021 Appearance (U) CLEAR Normal CLEAR [facility] Comment on above: Performed By: #### U ARFX #### [place] [address] Bilirubin Ql (U) Negative Normal NEGATIVE [facility] Comment on above: Performed By: #### U ARFX #### [place] [address] Color (U) Yellow Normal STRAW,YELL OW [facility] Comment on above: Performed By: #### U ARFX #### [place] [address] Glucose Ql (U) >=500(3+) Abnormal NEGATIVE [facility] Comment on above: Performed By: #### U ARFX #### [place] [address] Hemoglobin Ql (U) LARGE(3+) Abnormal NEGATIVE [facility] Comment on above: Performed By: #### U ARFX #### [place] [id number] Ketones Ql (U) Negative Normal NEGATIVE [facility] Comment on above: Performed By: #### U ARFX #### [place] [address] Leukocyte esterase Test strip Ql (U) Negative Normal NEGATIVE [facility] Comment on above: Performed By: #### U ARFX #### [place] [id number] Nitrite Ql (U) Negative Normal NEGATIVE [facility] Comment on above: Performed By: #### U ARFX #### [place] [id number] pH (U) 5.0 [pH] Normal 5.0 - 8.0 [facility] Comment on above: Performed By: #### U ARFX #### [address] [address] Protein Ql (U) Negative Normal NEGATIVE [facility] Comment on above: Performed By: #### U ARFX #### [address] [address] Specific gravity (U) [Rel density] 1.014 Normal 1.005 - 1.035 [facility] Comment on above: Performed By: #### U ARFX #### [address] [address] Urobilinogen (U) [Mass/Vol] mg/dL Normal 0.0 - 1.9 [facility] Comment on above: Performed By: #### U ARFX #### [address] [address] URINE CULTURE,BACTERIALon URINE CULTURE,BACTERIAL PATIENT: GISEL CARLTON LOCATION: [facility]#: [id number] : 75 AGE: SEX: F ORDERED BY: RICKEY CASTLE SOURCE: URINE COLLECTED: 06/10/21 02:44 ANTIBIOTICS AT [facility]ED[facility].: RECEIVED : 06/10/21 13:01 SITE: R E S U L T S URINE CULTURE,BACTERIAL FINAL 06/11/21 09:01 NO SIGNIFICANT GROWTH. Normal [facility] Comment on above: Performed By: #### U RINC #### [facility] [address] [place] [address] CT KIDNEY STONEon 05-28-2021 CT KIDNEY STONE EXAMINATION: CT KIDNEY STONE HISTORY: ORDERING SYSTEM PROVIDED HISTORY: Flank pain, kidney stone suspected, TECHNOLOGIST PROVIDED HISTORY: Illness/Other Reason for exam: LLQ pain, left fank pain Encounter Type: Initial Additional signs and symptoms: ORDERING SYSTEM PROVIDED DIAGNOSIS CODES: COMPARISON: CT abdomen/pelvis dated 05/07/2021. TECHNIQUE: Dose reduction techniques were achieved by using automated exposure control and/or adjustment of mA and/or kV according to patient size and/or use of iterative reconstruction technique. Multiple contiguous spiral CT images of the abdomen and pelvis were obtained without contrast. Coronal and sagittal reformat images were obtained. FINDINGS: There is a 2 mm nonobstructing calculus in the [id number] pole of the right kidney. Possible punctate nonobstructing calculus in the midpole of the left kidney. No hydronephrosis or hydroureter. No contour-deforming renal mass. Urinary bladder is decompressed. Visualized portions of the liver appear unremarkable. The spleen, pancreas, and adrenal glands are unremarkable. Gallbladder is surgically absent. Appendix is normal. No bowel obstruction or bowel wall thickening. No free intraperitoneal air, free fluid, or lymphadenopathy in the abdomen or pelvis. Uterus and ovaries are surgically absent. Abdominal aorta is normal in caliber. No suspicious osseous lesions. IMPRESSION: 1. There is a 2 mm nonobstructing right renal calculus. Possible punctate nonobstructing left renal calculus. No obstructive uropathy. 2. No acute infectious, inflammatory, or obstructive process in the abdomen or pelvis. 3. Gallbladder, uterus, and ovaries are surgically absent. [facility]/f Workstation ID: [id number] Dictated by: RICKEY ESPINOSA on ThuMay 28, 2021 5:22:26 AM EST Transcribed by: GELY STRICKLAND on ThuMay 28, 2021 5:27:00 AM EST Finalized by: RICKEY ESPINOSA on ThuMay 28, 2021 5:49:51 AM EST Normal [facility] Comment on above: Order Comment: Injur y/Trauma or Illness?:Illness/Other How long have you had these symptoms (acute/chronic)?:Acute Reason for exam?:LLQ pain, left fank pain Type of Exam?:Initial Additional signs and symptoms?: CBC Auto DifferentialOrdered By: Yanely Coyle on 04-15-2021 Basophils (Bld) [#/Vol] 0.1 10*3/uL 0.0 - 0.2 K/uL L2 Phone: Basophils/100 WBC (Bld) 0.9 % L2 Phone: Eosinophils (Bld) [#/Vol] 0.1 10*3/uL 0.0 - 0.7 K/uL L2 Phone: Eosinophils/100 WBC (Bld) 1.6 % L2 Phone: Hematocrit (Bld) [Volume fraction] 45.1 % 37.0 - 47.0 % L2 Phone: Hemoglobin.gastrointes tinal spec 1 Ql (Stl) 15.4 g/dL 12.0 - 16.0 g/dL L2 Phone: Lymphocytes (Bld) [#/Vol] 2.3 10*3/uL 1.0 - 4.8 K/uL L2 Phone: Lymphocytes/100 WBC (Bld) 34.4 % L2 Phone: MCH (RBC) [Entitic mass] 28.5 pg 27.0 - 31.3 pg L2 Phone: MCHC (RBC) [Mass/Vol] 34.1 % 33.0 - 37.0 % L2 Phone: MCV (RBC) [Entitic vol] 83.8 fL 82.0 - 100.0 fL L2 Phone: Monocytes (Bld) [#/Vol] 0.4 10*3/uL 0.2 - 0.8 K/uL L2 Phone: Monocytes/100 WBC (Bld) 6.4 % L2 Phone: Neutrophils Absolute 3.7 K/uL 1.4 - 6 .5 K/uL L2 Phone: Neutrophils/100 WBC (Bld) 56.7 % L2 Phone: Platelet distribution width (Bld) [Ratio] 14.3 % 11.5 - 14.5 % L2 Phone: Platelets (Bld) [#/Vol] 283 10*3/uL 130 - 400 K/uL L2 Phone: RBC (Bld) [#/Vol] 5.39 10*6/uL L2 Phone: WBC (Bld) [#/Vol] 6.6 10*3/uL 4.8 - 10.8 K/uL [facility] [employer] Work Phone: [facility] [employer] Work Phone: Comprehensive Metabolic Pane lOrdered By: Yanely Coyle on 04-15-2021 Albumin [Mass/Vol] 5 g/dL High 3.5 - 4.6 g/dL [facility] [employer] Work Phone: ALP (Bld) [Catalytic activity/Vol] 96 U/L 40 - 130 U/L [facility] [employer] Work Phone: ALT [Catalytic activity/Vol] 16 U/L 0 - 33 U/L [facility] [employer] Work Phone: Anion gap [Moles/Vol] 14 mmol/L [facility] [employer] Work Phone: AST [Catalytic activity/Vol] 14 U/L 0 - 35 U/L [facility] [employer] Work Phone: Bilirubin [Mass/Vol] 0.3 mg/dL 0.2 - 0 .7 mg/dL [facility] [employer] Work Phone: Calcium [Mass/Vol] 10.5 mg/dL High 8.5 - 9.9 mg/dL [facility] [employer] Work Phone: Chloride [Moles/Vol] 102 mmol/L [facility] [employer] Work Phone: CO2 [Moles/Vol] 23 mmol/L [facility] Work Phone: Creatinine [Mass/Vol] 0.51 mg/dL 0.50 - 0.90 mg/dL [facility] [employer] Work Phone: Free PSA/Total PSA [Mass fraction] 7.9 g/dL 6.3 - 8.0 g/dL [facility] [employer] Work Phone: GFR >60.0 >60 [facility] [employer] Work Phone: Comment on above: >60 mL/min/1.73m2 EG FR, calc. for ages 18 and older using the MDRD formula (not corrected for weight), is valid for stable renal function. GFR Non- >60.0 >60 [employer] Work Phone: Comment on above: >60 mL/min/1.73m2 EG FR, calc. for ages 18 and older using the MDRD formula (not corrected for weight), is valid for stable renal function. Globulin (S) [Mass/Vol] 2.9 g/dL 2.3 - 3.5 g/dL [employer]2 Phone: Glucose [Mass/Vol] 231 mg/dL High 70 - 99 mg/dL [employer] Phone: Interpretation and review of laboratory results Abnormal L2 Phone: Potassium [Moles/Vol] 4.1 mmol/L [facility] [employer] Work Phone: Sodium [Moles/Vol] 139 mmol/L L2 Phone: Urea nitrogen (BldV) [Mass/Vol] 16 mg/dL 6 - 20 mg/dL L2 Phone: [employer] Work Phone: Microscopic UrinalysisOrdere d By: Sena Dacosta on 04-15-2021 Bacteria, UA Negative Negative /HPF [employer] Work Phone: Epithelial Cells, UA 3-5 [employer] Work Phone: Hyaline Casts, UA 1-3 [employer] [facility] Work Phone: Interpretation and review of laboratory results Abnormal L2 Phone: RBC (U) [#/Vol] /uL High [facility] Work Phone: WBC, UA 20-50 Abnormal [employer] Work Phone: [employer] Work Phone: UrinalysisOrdered By: Yanely Coyle on 04-15-2021 Bilirubin Urine Negative Negative [employer] [facility] Work Phone: Blood, Urine LARGE Abnormal Negative [facility] Work Phone: Clarity, UA CLOUDY Abnormal Clear [facility] Work Phone: Color, UA ORANGE Abnormal Straw/Clay ow [employer] Work Phone: Glucose, Ur >=1000 Abnormal Negative mg/dL [facility] Work Phone: Interpretation and review of laboratory results Abnormal [facility] Work Phone: Ketones Ql (U) TRACE Abnormal Negative mg/dL [facility] [employer] Work Phone: Leukocyte esterase Test strip Ql (U) SMALL Abnormal Negative [facility] Work Phone: Nitrite, Urine Negative Negative [facility] Work Phone: pH, UA 5.0 [facility] [employer] Work Phone: Protein, UA Negative Negative mg/dL [facility] [employer] Work Phone: Specific [place], UA 1.036 [employer] Work Phone: Urobilinogen, Urine 0.2 <2.0 E.U./dL [facility] Work Phone: [employer] Work Phone: Cystoscopy, Remove Calculus, SimpleOrdered By: Tim Roper on 02-06-2021 Tim Roper MD 02/06/2021 8:27 AM Cystoscopy, Remove Calculus, Simple Date/Time: 02/06/2021 8:25 AM Performed by: Tim Roper MD Authorized by: Tim Roper MD Verbal consent: obtained Written consent: obtained Consent given by: patient Relevant documents: Relevent documents present and verified. Medical history, medications, allergies and physical assessment reviewed/completed Test results: test results available and properly labeled Site: site marked by physician or proceduralist who is privileged and credentialed to perform procedure Relevant imaging studies available and labeled: Yes Patient identity confirmed: verified patient name and Time out: Immediately prior to procedure a time out was called to verify the correct patient, procedure, equipment, medical support specialist and site/side marked as required. Timeout performed at: 02/06/2021 8:25 AM Physician or proceduralist has discussed critical or nonroutine steps, procedure duration and anticipated blood loss: Yes All team members agree to proceed: Yes Preparation: Patient was prepped and draped in usual sterile fashion Local anesthesia used?: Yes Local anesthetic: Lidocaine/prilocaine emulsionPatient sedated: no Patient tolerance: Patient tolerated the procedure well with no immediate complications Procedure details: The patient was placed on the table in the frog-leg position. She was prepped in the usual sterile fashion and lidocaine jelly was administered per urethra. The flexible cystoscope was assembled. It was passed under direct vision into the bladder. The stent could be seen protruding from the right ureteral orifice. Grasping forceps were used to capture the stent and the stent was removed without difficulty. She tolerated this well and there were no complications. She will follow-up in 6 months with a KUB x-ray. [facility] Bacteria identified Aer cx N om (Unsp spec)Ordered By: Fei Jones on 02-02-2021 [place] Glucose (Bld) [Mass/Vol]Orde red By: Generic [facility] Svetlana on 02-02-2021 Glucose [Mass/Vol] 265 mg/dL High 65 - 99 mg/dL [place] Interpretation and review of laboratory results Abnormal [facility] Glucose [Mass/Vol] 233 mg/dL High 65 - 99 mg/dL [place] Interpretation and review of laboratory results Abnormal [facility] Urine Aerobic CultureOrdered By: Fei Jones on 02-02-2021 Bacteria identified Aer cx Nom (Unsp spec) No Growth (<1,000 CFU/mL) [place] Basic metabolic 2000 panelOr dered By: Rufina Eugene on 02-01-2021 Anion gap [Moles/Vol] 14 mmol/L 10 - 2 0 mmol/L [place] Calcium [Mass/Vol] 9.1 mg/dL 8.4 - 10. 2 mg/dL [place] Chloride [Moles/Vol] 105 mmol/L 98 - 10 8 mmol/L [place] Creatinine [Mass/Vol] 0.49 mg/dL 0.40 - 1.10 [place] GFR/1.73 sq M.predicted CKD-EPI (S/P/Bld) [Vol rate/Area] 118 >=60 mL/min/1.7 3 m2 [place] Glucose [Mass/Vol] 263 mg/dL High 65 - 99 mg/dL [place] HCO3 [Moles/Vol] 24 mmol/L 21 - 32 mmol/L [place] Interpretation and review of laboratory results Abnormal [place] Potassium [Moles/Vol] 3.7 mmol/L 3.5 - 5.1 mmol/L [place] Sodium [Moles/Vol] 139 mmol/L 135 - 145 mmol/L [place] Urea nitrogen [Mass/Vol] 13 mg/dL 8 - 25 mg/dL [place] Urea nitrogen/Creatinine [Mass ratio] 26.5 mg/mg High [place] The eGFR should be u sed for monitoring renal function only and not for medication dosing. [facility] CBC panel Auto (Bld)Ordered By: Rufina Eugene on 02-01-2021 Erythrocyte distribution width (RBC) [Entitic vol] 13.5 % 11.6 - 14.8 % [place] Hematocrit (Bld) [Volume fraction] 37.0 % 36.0 - 46.0 % [place] Hemoglobin (Bld) [Mass/Vol] 12.0 g/dL 12.0 - 16.0 g/dL [place] MCH (RBC) [Entitic mass] 27.6 pg 26.0 - 34.0 pg [place] MCHC (RBC) [Mass/Vol] 32.4 g/dL 31.0 - 37.0 g/dL [place] MCV (RBC) [Entitic vol] 85.1 fL 80.0 - 100.0 fL [place] Nucleated RBC (Bld) [#/Vol] 0.00 10*3/uL [place] Nucleated RBC/100 WBC (Bld) [Ratio] 0.0 % [place] Platelet mean volume (Bld) [Entitic vol] 9.8 fL 9.4 - 12.4 fL [place] Platelets (Bld) [#/Vol] 211 10*3/uL [place] RBC (Bld) [#/Vol] 4.35 10*6/uL [facility] WBC (Bld) [#/Vol] 5.18 10*3/uL [facility] [place] CT KIDNEY STONEOrdered By: Judi Jones on 02-01-2021 Right nephroureteral stent appears in appropriate position. No ureteral stones or hydronephrosis. A few punctate nonobstructing bilateral kidney stones. Prior cholecystectomy and hysterectomy. Normal appendix. Moderate colonic stool burden. Workstation ID: [id number] [place] EXAMINATION: CT KIDNEY STONE HISTORY: ORDERING SYSTEM PROVIDED HISTORY: worsening right flank pain and fever, TECHNOLOGIST PROVIDED HISTORY: Illness/Other Reason for exam: worsening right flank pain and fever Encounter Type: Initial Additional signs and symptoms: stent yesterday pain since thursday ORDERING SYSTEM PROVIDED DIAGNOSIS CODES: COMPARISON: 01/26/2021 TECHNIQUE: Axial CT images of the abdomen and pelvis were obtained without intravenous contrast. Multiplanar 2-D reconstructed images were obtained and reviewed. Dose reduction techniques were achieved by using: automated exposure control and/or adjustment of mA and /or kV according to patient size and/or use of iterative reconstruction technique. FINDINGS: Please note that the sensitivity for detection of focal lesions or vascular disease is markedly reduced without intravenous contrast. LOWER CHEST: The imaged lung bases are clear. LIVER: Unremarkable. GALLBLADDER: Prior cholecystectomy. BILE DUCTS: No pathologic biliary ductal dilatation. SPLEEN: Unremarkable. PANCREAS: Unremarkable. ADRENAL GLANDS: Unremarkable. KIDNEYS/URETERS: Right nephroureteral stent intervally placed compared to prior CT and appears in appropriate position. No ureteral stones or hydronephrosis. Punctate nonobstructing 2 mm bilateral kidney stones. URINARY BLADDER: Bladder is decompressed and unremarkable. PELVIC STRUCTURES: Prior hysterectomy. No adnexal masses. No significant pelvic free fluid. GI: Limited evaluation due to fecal contents and lack of distension. No bowel obstruction. Normal appendix. Moderate colonic stool burden. PERITONEUM: No free air. No abscess. VASCULATURE: Unremarkable. LYMPH NODES: No pathologically enlarged lymph nodes by CT size criteria. SOFT TISSUE: Unremarkable. BONE: No acute osseous abnormality. No suspicious osseous lesions. [place] Interface, Delfino In Fu ji Speechq - 02/01/2021 1:03 AM EDT EXAMINATION: CT KIDNEY STONE HISTORY: ORDERING SYSTEM PROVIDED HISTORY: worsening right flank pain and fever, TECHNOLOGIST PROVIDED HISTORY: Illness/Other Reason for exam: worsening right flank pain and fever Encounter Type: Initial Additional signs and symptoms: stent yesterday pain since thursday ORDERING SYSTEM PROVIDED DIAGNOSIS CODES: COMPARISON: 01/26/2021 TECHNIQUE: Axial CT images of the abdomen and pelvis were obtained without intravenous contrast. Multiplanar 2-D reconstructed images were obtained and reviewed. Dose reduction techniques were achieved by using: automated exposure control and/or adjustment of mA and /or kV according to patient size and/or use of iterative reconstruction technique. FINDINGS: Please note that the sensitivity for detection of focal lesions or vascular disease is markedly reduced without intravenous contrast. LOWER CHEST: The imaged lung bases are clear. LIVER: Unremarkable. GALLBLADDER: Prior cholecystectomy. BILE DUCTS: No pathologic biliary ductal dilatation. SPLEEN: Unremarkable. PANCREAS: Unremarkable. ADRENAL GLANDS: Unremarkable. KIDNEYS/URETERS: Right nephroureteral stent intervally placed compared to prior CT and appears in appropriate position. No ureteral stones or hydronephrosis. Punctate nonobstructing 2 mm bilateral kidney stones. URINARY BLADDER: Bladder is decompressed and unremarkable. PELVIC STRUCTURES: Prior hysterectomy. No adnexal masses. No significant pelvic free fluid. GI: Limited evaluation due to fecal contents and lack of distension. No bowel obstruction. Normal appendix. Moderate colonic stool burden. PERITONEUM: No free air. No abscess. VASCULATURE: Unremarkable. LYMPH NODES: No pathologically enlarged lymph nodes by CT size criteria. SOFT TISSUE: Unremarkable. BONE: No acute osseous abnormality. No suspicious osseous lesions. IMPRESSION: Right nephroureteral stent appears in appropriate position. No ureteral stones or hydronephrosis. A few punctate nonobstructing bilateral kidney stones. Prior cholecystectomy and hysterectomy. Normal appendix. Moderate colonic stool burden. Workstation ID: [id number] [facility] Glucose (Bld) [Mass/Vol]Orde red By: Generic [facility] Svetlana on 02-01-2021 Glucose [Mass/Vol] 290 mg/dL High 65 - 99 mg/dL [place] Interpretation and review of laboratory results Abnormal [facility] Glucose [Mass/Vol] 140 mg/dL High 65 - 99 mg/dL [place] Interpretation and review of laboratory results Abnormal [facility] Glucose [Mass/Vol] 189 mg/dL High 65 - 99 mg/dL [place] Interpretation and review of laboratory results Abnormal [facility] Glucose [Mass/Vol] 220 mg/dL High 65 - 99 mg/dL [place] Interpretation and review of laboratory results Abnormal [facility] Glucose [Mass/Vol] 289 mg/dL High 65 - 99 mg/dL [place] Interpretation and review of laboratory results Abnormal [facility] INR Coag (PPP) [Relative debbie e]Ordered By: Rufina Eugene on 02-01-2021 Interpretation and review of laboratory results Normal [place] PT Coag (PPP) [Time] 12.9 s [facility] During the induction phase of oral anticoagulation, the INR may not reflect the anticoagulation status of the patient. Therapeutic ranges for INR's are: Most clinical situations: INR 2.0-3.0 Mechanical Prosthetic Valve: INR 2.5-3.5 Critical: INR >5.0 [facility] PT/INROrdered By: Rufina Eugene on 02-01-2021 INR Coag (PPP) [Relative time] 1.0 {INR} [place] SARS-CoV-2 (COVID-19) RdRp g edith JENNIFER+probe Ql (Resp)Ordered By: Sena White on 02-01-2021 Interpretation and review of laboratory results Normal [place] SARS-CoV-2 (COVID-19) RNA JENNIFER+probe Ql (Resp) Not detected Not Detected [place] This test was perfor med under the FDA's Emergency Use Authorization (EUA). Testing was performed using the Mariah Kristen SARS-CoV-2 RT-PCR & Influenza A/B Nucleic Acid Test on the Krist[employer] Al[employer] System. This test has not been approved for use in asymptomatic patients and its performance in this patient population has not been evaluated. Negative results do not rule out the presence of SARS-CoV-2, influenza A, and/or influenza B. Fact sheets for the EUA can be found at the following links: For Healthcare Providers: https://www.fda.gov/media /266650/download For Patients: https://www.fda.gov/media /937692/download [facility] Basic metabolic 1998 panelOr dered By: Sena White on 01-31-2021 Anion gap [Moles/Vol] 17 mmol/L 10 - 2 0 mmol/L [place] Chloride [Moles/Vol] 102 mmol/L 98 - 10 8 mmol/L [place] Creatinine [Mass/Vol] 0.59 mg/dL 0.40 - 1.10 [place] GFR/1.73 sq M.predicted CKD-EPI (S/P/Bld) [Vol rate/Area] 111 >=60 mL/min/1.7 3 m2 [place] Glucose [Mass/Vol] 346 mg/dL High 65 - 99 mg/dL [place] HCO3 [Moles/Vol] 21 mmol/L 21 - 32 mmol/L [place] Interpretation and review of laboratory results Abnormal [place] Potassium [Moles/Vol] 3.8 mmol/L 3.5 - 5.1 mmol/L [place] Sodium [Moles/Vol] 136 mmol/L 135 - 145 mmol/L [place] Urea nitrogen [Mass/Vol] 15 mg/dL 8 - 25 mg/dL [place] Urea nitrogen/Creatinine [Mass ratio] 25.4 mg/mg High [place] The eGFR should be u sed for monitoring renal function only and not for medication dosing. [facility] CBC WITH AUTO DIFFERENTIALOr dered By: Sena White on 01-31-2021 Basophils (Bld) [#/Vol] 0.04 10*3/uL [place] Basophils/100 WBC (Bld) 0.7 % [place] Eosinophils (Bld) [#/Vol] 0.11 10*3/uL [place] Eosinophils/100 WBC (Bld) 1.8 % [place] Erythrocyte distribution width (RBC) [Entitic vol] 13.2 % 11.6 - 14.8 % [place] Hematocrit (Bld) [Volume fraction] 41.3 % 36.0 - 46.0 % [place] Hemoglobin (Bld) [Mass/Vol] 13.3 g/dL 12.0 - 16.0 g/dL [place] Immature granulocytes (Bld) [#/Vol] 0.02 10*3/uL [place] Immature granulocytes/100 WBC (Bld) 0.30 % [place] Comment on above: The IG parameter is the percentage of metamyelocytes, myelocytes and promyelocytes. An immature granulocyte count (IG) of 1% or more suggests the possibility of infection, an IG count of 3% is very likely related to an infection. Lymphocytes (Bld) [#/Vol] 2.23 10*3/uL [place] Lymphocytes/100 WBC (Bld) 36.9 % [place] MCH (RBC) [Entitic mass] 27.8 pg 26.0 - 34.0 pg [place] MCHC (RBC) [Mass/Vol] 32.2 g/dL 31.0 - 37.0 g/dL [place] MCV (RBC) [Entitic vol] 86.2 fL 80.0 - 100.0 fL [place] Monocytes (Bld) [#/Vol] 0.56 10*3/uL [place] Monocytes/100 WBC (Bld) 9.3 % [place] Neutrophils (Bld) [#/Vol] 3.08 10*3/uL [place] Neutrophils/100 WBC (Bld) 51.0 % [place] Nucleated RBC (Bld) [#/Vol] 0.00 10*3/uL [place] Nucleated RBC/100 WBC (Bld) [Ratio] 0.0 % [place] Platelet mean volume (Bld) [Entitic vol] 9.5 fL 9.4 - 12.4 fL [place] Platelets (Bld) [#/Vol] 213 10*3/uL [place] RBC (Bld) [#/Vol] 4.79 10*6/uL [facility] WBC (Bld) [#/Vol] 6.04 10*3/uL [facility] Gold TopOrdered By: Triage E mergency on 01-31-2021 [place] No Panel InformationOrdered By: Triage Emergency on 01-31-2021 [place] Extra Tube Hold for add-ons. [facility] Comment on above: Auto resulted. URINALYSISOrdered By: Jaswinder White on 01-31-2021 Bacteria Auto Ql (U) Few Abnormal None Se en /hpf [place] Clarity Refractometry automated (U) Cloudy Abnormal Clear [place] Color (U) Linda Abnormal Colorless, Yellow [place] Glucose Auto test strip (U) [Mass/Vol] >=500 Abnormal Negative mg/dL [place] Ketones (U) [Mass/Vol] Negative Negat isabella mg/dL [place] Leukocyte esterase Auto test strip Ql (U) Moderate Abnormal Negative [facility] h pH (U) 5.5 [pH] [place] Specific gravity (U) [Rel density] 1.029 High [place] UrinalysisOrdered By: Jaswinder White on 01-31-2021 Bilirubin Ql (U) Negative Negative [facility] Epithelial cells.squamous Auto (Urine sed) [#/Area] 7 High [place] Hemoglobin Auto test strip Ql (U) Large Abnormal Negative [place] Interpretation and review of laboratory results Abnormal [place] Nitrite Auto test strip Ql (U) Negative Negative [place] Protein (U) [Mass/Vol] 30 mg/dL Abnormal Negat isabella mg/dL [place] Comment on above: False positive resul ts may occur in urines with large amounts of hemoglobin, pH greater than 8.0, contrast medium, or disinfectants including ammonium compounds. RBC Auto (Urine sed) [#/Area] >180 High [place] Urobilinogen (U) [Mass/Vol] mg/dL <2.0 mg/dL [place] WBC Auto (Urine sed) [#/Area] 65 High [place] Microscopic examinat ion is performed on all urinalysis samples and only positive findings are reported. The test for blood on the chemical analytic portion of urinalysis may also be positive due to hemoglobinuria and myoglobinuria and if red blood cells are present they are quantified by microscopic examination. [facility] XR CHEST AP PORTABLEOrdered By: Gely Flood on 01-14-2021 IMPRESSION: No acute cardiopulmonary abnormalities. [facility] EXAM: XR CHEST AP PORTABLE 01/14/2021 10:09 PM EDT HISTORY: cough COMPARISON: None. TECHNIQUE: AP erect view of the chest. FINDINGS: Lungs are clear. The cardiomediastinal configuration is within normal limits. No acute bony abnormalities. [facility] User, Interfaces - 01/14/2021 10:58 PM EDT EXAM: XR CHEST AP PORTABLE 01/14/2021 10:09 PM EDT HISTORY: cough COMPARISON: None. TECHNIQUE: AP erect view of the chest. FINDINGS: Lungs are clear. The cardiomediastinal configuration is within normal limits. No acute bony abnormalities. IMPRESSION IMPRESSION: No acute cardiopulmonary abnormalities. [facility] GLUCOSE BY METERon 1 Glucose [Mass/Vol] 299 mg/dL High 65-110 [facility] Comment on above: Performed By: #### G LUM #### [facility] [address] [place], [place] [address] [employer] Operator - Patricia YEPEZ [id number] URINALYSIS with reflex to CU LTUREon 07-01-2021 Bacteria LM.HPF (Urine sed) [#/Area] Negative Normal TRACE [facility] Comment on above: Performed By: #### U AR #### [facility] [address] [place] [address] [employer] Operator - [facility] [id number] Bilirubin Ql (U) Negative Normal NEGATIVE [facility] Comment on above: Performed By: #### U AR #### [facility] [address] [place] [address] [employer] Operator - [facility] [id number] Clarity (U) Slightly Cloudy Abnormal CLEAR [facility] Comment on above: Performed By: #### U AR #### [facility] [address] [place] [address] [employer] Operator - [place] [id number] Color (U) YELLOW Normal YELLOW [facility] Comment on above: Performed By: #### U AR #### [address] [place] [address] [employer] Machine Operator - [facility] [id number] Glucose Ql (U) 4+ Abnormal NEGATIVE [facility] Comment on above: Performed By: #### U AR #### [address] [place] [address] [employer] Machine Operator - [facility] [id number] Hemoglobin Ql (U) 3+ Abnormal NEGATIVE [facility] Comment on above: Performed By: #### U AR #### [facility] [address] [place], [place] [address] [address] [employer] Machine Operator - [facility] [id number] HMICRO AUTOMATED MICROSCOPIC Normal [facility] Comment on above: Performed By: #### U AR #### [facility] [address] [place] [address] [employer] Machine Operator - [facility] [id number] Hyaline casts (Urine sed) [#/Area] 0-8 Normal 0-8 [facility] Comment on above: Performed By: #### U AR #### [facility] [address] [place], [place] [address] [address] [employer] Machine Operator - [facility] CLIA [id number] KETONE Negative Normal NEGATIVE [facility] Comment on above: Performed By: #### U AR #### [place] [address] [employer] Machine Operator - PatriciaPSE&G Children[facility] Specialized HospitalIA [id number] Leukocyte esterase Test strip Ql (U) TRACE Normal TRACE [facility] Comment on above: Performed By: #### U AR #### [place] [address] [employer] Operator - PatriciaPSE&G [facility] Specialized HospitalIA [id number] Nitrite Ql (U) Negative Normal NEGATIVE [facility] Comment on above: Performed By: #### U AR #### [place] [address] [employer] Operator - PatriciaPSE&G [facility] Special[facility] HospitalIA [id number] pH (U) 7.0 [pH] Normal 5.5-7.5 [facility] Comment on above: Performed By: #### U AR #### [place] [address] [employer] Machine Operator - [facility] SpringsIA [id number] Protein Ql (U) Negative Normal NEGATIVE [facility] Comment on above: Performed By: #### U AR #### [place] [address] [employer] Machine Operator - PatriciaPSE&G Children's Specialized HospitalIA [id number] RBC LM.HPF (Urine sed) [#/Area] /[HPF] Abnormal 0-4 [facility] Comment on above: Performed By: #### U AR #### [place] [address] [employer] Operator - Patricia Bertrand CLIA [id number] Specific gravity (U) [Rel density] 1.041 High 1.010-1.03 5 [facility] Comment on above: Performed By: #### U AR #### [place] [address] [employer] Machine Operator - PatriciaPSE&G Children[facility] Specialized HospitalIA [id number] SQUAMOUS EPITHELIALS >15 Abnormal 0-5 [facility] Comment on above: Performed By: #### U AR #### [facility] [address] [facility] [place] [address] [employer] Machine Operator - Patricia YEPEZ [id number] Urobilinogen Qn (U) 1.0 {Diaz'U}/dL Normal <=1.0 [facility] Comment on above: Result Comment: 1.0 E.U./dL Performed By: #### U AR #### [address] [place] [address] [employer] Machine Operator - Patricia YEPEZ [id number] WBC LM.HPF (Urine sed) [#/Area] 0-5 Normal 0-5 [facility] Comment on above: Performed By: #### U AR #### [address] [place] [address] [employer] Machine Operator - Patricia YEPEZ [id number] EMERGENCY REPORTon 1 EMERGENCY REPORT [facility] EMERGENCY ROOM REPORT NAME ACCOUNT SEX AGE ADMIT DISCHARGE PT MED. RECORD# NUMBER DATE DATE TYPE GISEL CARLTON [id number] F 45 12/04/20 12/04/20 3 BERTHA [id number] ROOM: ER DATE OF : 1975 DICTATING PHYSICIAN: Shayna Ochoa CHIEF COMPLAINT: Right-sided abdominal pain, urinary symptoms, and history of kidney stones. HISTORY OF PRESENT ILLNESS: She said she is new to the area and has never been here before. She does not have a primary care physician or a chronic pain specialist. She said she has had numerous episodes of kidney stones. Most have passed on their own. This started yesterday. She had nausea but no vomiting. No diarrhea or urinary symptoms. PAST MEDICAL HISTORY: Cjt-[id number] diabetes and GERD. PAST SURGICAL HISTORY: Gallbladder, hysterectomy, hernia, carpal tunnel and left leg. MEDICATIONS: See nurse's note. ALLERGIES: Demerol, Toradol, Nubain, morphine and fentanyl. FAMILY HISTORY: Noncontributory. PHYSICAL EXAMINATION: Blood pressure is 163/100, pulse 108, respiratory rate 16, temperature 98.1, and oxygen saturation 96%. General: She is awake, alert, and nontoxic. Head is normocephalic, atraumatic. Heart rate and rhythm are regular without murmur, gallop or rub. Lungs are clear to auscultation bilaterally without wheezes, rales or rhonchi. Abdomen is soft. No tenderness, guarding, rebound, or rigidity. No reproducible back or flank tenderness. Skin is warm and dry without cyanosis, ecchymosis, petechiae, or purpura. EMERGENCY DEPARTMENT COURSE AND TREATMENT: We ordered a urine on her. It did show blood and some bacteria, so I ordered a CT scan on her. The weight reducing technician came over and said she was refusing the CT scan. I went in to speak with her after I pulled an OARRS report, and she stated she cannot lay down for the CT scan until she gets something for pain. She is here by herself. Her OARRS report was 600 with multiple narcotic prescriptions from multiple prescribers. We gave her the opportunity to tell us about that in her history, and she said all she has is GERD. She does not take any other medications and has not been to any other doctors. These were from doctors Page 1 of 2 GISEL CARLTON Emergency Room Report GISEL CARLTONN : 1975 across the entire area of [place]. When I questioned her about this, she initially became very argumentative and said that she did not want the CT scan because she did not want any additional radiation. I told her I was not comfortable giving her anything for pain and that we did need to make sure that she did not have an infected kidney stone. She agreed to do the CT of the abdomen and pelvis. She called us back in to apologize for getting upset and told us that the reason her OARRS report is so high is because she was told she has COVID lungs and she only has a small amount of time to live. This did not make any sense to us because her narcotic prescriptions go back to 2018, way before COVID ever existed. She does not have a primary care physician and is not on oxygen, so I am not certain she has anything like that. I signed her out pending the CT of the abdomen and pelvis to my partner. The patient subsequently had a urinary tract infection and a negative CT study with narcotic-seeking behavior. Dictated By: Shayna Ochoa DO 12/06/20 08:09 JOB #: [id number] Transcribed By: deneen 12/06/20 12:15 Electronically signed by: E-Sign: SHAYNA OCHOA MD 12/16/20 12:47 Page 2 of 2 GISEL CARLTON Emergency Room Report Normal [facility] CBC + DIFFon 12-04-2020 Baso # 0.10 x10EE3/UL Normal 0.00 - 0.10 [facility] Comment on above: Performed By: #### 2 44382 #### [facility],[address] [place] [address] Basophils/100 WBC (Bld) 1.2 % Normal 0.0 - 2.0 [facility] Comment on above: Performed By: #### 2 25978 #### [facility],[address] [place] [address] CBC + DIFF Normal [facility] Comment on above: Result Comment: CBC- COMPLETE BLOOD COUNT Performed By: #### 2 88802 #### [facility],[address] [place] [address] EO # 0.10 x10EE3/UL Normal 0.00 - 0.50 [facility] Comment on above: Performed By: #### 2 70594 #### [facility],[address] [place], [place] [id number] Eosinophils/100 WBC (Bld) 1.9 % Normal 0.0 - 7.0 [facility] Comment on above: Performed By: #### 2 83419 #### [facility],[address] [place] [address] Erythrocyte distribution width (RBC) [Ratio] 14.3 % Normal 12.0 - 15.6 [facility] Comment on above: Performed By: #### 2 41490 #### [facility],[address] [place] [address] Hematocrit (Bld) [Volume fraction] 39.1 % Normal 34.0 - 46.0 [facility] Comment on above: Performed By: #### 2 86024 #### [facility],[address] [place] [address] Hemoglobin (Bld) [Mass/Vol] 13.3 g/dL Normal 12.0 - 16.0 [facility] Comment on above: Performed By: #### 2 45835 #### [facility],[address] [place] [address] Lymph # 2.00 x10EE3/UL Normal 0.80 - 2.80 [facility] Comment on above: Performed By: #### 2 28736 #### [facility],[address] [place] [address] Lymphocytes/100 WBC (Bld) 35.7 % Normal 20.0 - 45.0 [facility] Comment on above: Performed By: #### 2 02705 #### [facility],[address] [place] [address] MANUAL DIFF N/A Normal [facility] Comment on above: Performed By: #### 2 26023 #### [facility],[address] [place] [address] MCH (RBC) [Entitic mass] 28 pg Normal 27 - 33 [facility] Comment on above: Performed By: #### 2 55987 #### [facility],[address] [place] [address] MCHC 34 X10 3 Normal 32 - 36 [facility] Comment on above: Performed By: #### 2 94694 #### [facility],[address] [place], [place] [id number] MCV (RBC) [Entitic vol] 82 fL Normal 80 - 99 [facility] Comment on above: Performed By: #### 2 55857 #### [facility],[address] [place] [address] [place] # 0.50 x10EE3/UL Normal 0.20 - 1.00 [facility] Comment on above: Performed By: #### 2 78247 #### [facility],[address] [place] [address] MONOS % 7.9 % Normal 0.0 - 10.0 [facility] Comment on above: Performed By: #### 2 96164 #### [facility],[address] [place] [address] Morphology Clint (Bld) [Interp] N/A Normal [facility] Comment on above: Result Comment: {CD] Performed By: #### 2 18894 #### [facility],[address] [place] [address] Neut # 3.00 x10EE3/UL Normal 1.50 - 7.10 [facility] Comment on above: Performed By: #### 2 68858 #### [facility],[address] [place] [address] Neutrophils/100 WBC (Bld) 53.3 % Normal 46.0 - 76.0 [facility] Comment on above: Performed By: #### 2 35774 #### [facility],[address] [place] [address]284 PLATELET 253 x10EE3/UL Normal 150 - 450 [facility] Comment on above: Performed By: #### 2 18986 #### [facility],[address] [place] [address] Platelet mean volume (Bld) [Entitic vol] 7.4 fL Normal 6.6 - 10.5 [facility] Comment on above: Result Comment: AUTO MATED DIFFERENTIAL Performed By: #### 2 84790 #### [facility],[address] [place] [address]87 RBC 4.77 x 10EE6/UL Normal 4.10 - 5.30 [facility] Comment on above: Performed By: #### 2 99890 #### [facility],[address] [place] [address] WBC 5.7 x 10EE3/UL Normal 4.5 - 10.8 [place] Comment on above: Performed By: #### 2 12892 #### [facility],[address] [place] [address] CMP with eGFRon 12-04-2020 AGE 45 years Normal [facility] Comment on above: Performed By: #### 2 99389 #### [facility],[address] [place] [address] Albumin [Mass/Vol] 3.9 g/dL Normal 3.4 - 5.0 [facility] Comment on above: Performed By: #### 2 99269 #### [facility],[address] [place] [address] 23063 Albumin/Globulin [Mass ratio] 0.9 {ratio} Normal 0.9 - 1.6 [facility] Comment on above: Performed By: #### 2 99639 #### [facility],[address] [place] [address] 36572 ALK PHOS 82 U/L Normal 46 - 116 [facility] Comment on above: Performed By: #### 2 95733 #### [facility],[address] [place] [address]14 ALT [Catalytic activity/Vol] 34 U/L Normal 14 - 59 [facility] Comment on above: Performed By: #### 2 24074 #### [facility],[address] [place] [address] Anion gap [Moles/Vol] 15 mmol/L Normal 10 - 20 [facility] Comment on above: Performed By: #### 2 95034 #### [facility],[address] [place] [address]10 AST [Catalytic activity/Vol] 30 U/L Normal 13 - 39 [facility] Comment on above: Performed By: #### 2 39528 #### [facility],[address] [place] [address]8521 B/C RATIO 17 ratio Normal 0 - 30 [facility] Comment on above: Performed By: #### 2 74123 #### [facility],[address] [place] [address] 46391 Bilirubin [Mass/Vol] 0.6 mg/dL Normal 0.2 - 1.0 [facility] Comment on above: Performed By: #### 2 98989 #### [facility],[address] [place] [address]25 Calcium [Mass/Vol] 9.7 mg/dL Normal 8.5 - 10.1 [facility] Comment on above: Performed By: #### 2 19379 #### [facility],[address] [place] [address] 49942 Chloride [Moles/Vol] 102 mmol/L Normal 98 - 107 [facility] Comment on above: Performed By: #### 2 76155 #### [facility],[address] [place] [address] 70225 CMP with eGFR Normal [facility] Comment on above: Result Comment: COMP REHENSIVE METABOLIC PANEL Performed By: #### 2 02600 #### [facility],[address] [place] [address] 09968 CO2 [Moles/Vol] 27.9 mmol/L Normal 21.0 - 32.0 [facility] Comment on above: Performed By: #### 2 93328 #### [facility],[address] [place] [address] 24774 Creatinine [Mass/Vol] 0.71 mg/dL Normal 0.55 - 1.02 [facility] Comment on above: Performed By: #### 2 84813 #### [facility],[address] [place] [address]302 GFR/1.73 sq M.predicted among non-blacks MDRD (S/P/Bld) [Vol rate/Area] mL/min/{1.73_m2} Normal 60 - 999 [facility] Comment on above: Performed By: #### 2 84435 #### [facility],[address] [place], [place] [address] Result Comment: ACCO RDING TO THE NATIONAL KIDNEY DISEASE EDUCATION PROGRAM(NKDE), A NORMAL eGFR IS A VALUE GREATER THAN OR EQUAL TO 60 ML/MIN/1.73 SQ METERS. CHRONIC KIDNEY DISEASE: <60mL/MIN/1.73 SQ METERS KIDNEY FAILURE: <15mL/MIN/1.73 SQ METERS THIS TEST SHOULD ONLY BE USED FOR PATIENTS 18 YEARS OF AGE AND OLDER. Globulin (S) [Mass/Vol] 4.4 g/dL High 1.5 - 3.8 [facility] Comment on above: Performed By: #### 2 32972 #### [address] [address] Glucose [Mass/Vol] 295 mg/dL High 74 - 106 [facility] Comment on above: Performed By: #### 2 28647 #### [address] [address] Potassium [Moles/Vol] 4.0 mmol/L Normal 3.5 - 5.1 [facility] Comment on above: Performed By: #### 2 06988 #### [facility],[address] [place] [address]76 Protein [Mass/Vol] 8.3 g/dL High 6.4 - 8.2 [facility] Comment on above: Performed By: #### 2 75518 #### [address] [address] Sodium [Moles/Vol] 141 mmol/L Normal 136 - 145 [facility] Comment on above: Performed By: #### 2 58322 #### [facility],[address] [place] [address] Urea nitrogen [Mass/Vol] 12 mg/dL Normal 7 - 18 [facility] Comment on above: Performed By: #### 2 70344 #### [address] [address] [address] KUB (KIDNEY STONE PROTOCO L)on 12-04-2020 CT KUB (KIDNEY STONE PROTOCOL) [address] [address] Patient: GISEL CARLTON Phone#: : [phone] Age: 45 Gender: F Pt. Type: ER Account: [id number] Location: 052 Ordering: DR. SHAYNA OCHOA Exam Date: 12/04/2020/19:46 Family Phys: Charge Code: [id number] Physician: Person Order #: [id number] DLP Dose#: 18.7 mGy PROCEDURE: CT ABDOMEN AND PELVIS WITHOUT CONTRAST COMPARISON: None. INDICATIONS: Kidney stone protocol. TECHNIQUE: After obtaining the patient's consent, CT images of the abdomen and pelvis were created without non-ionic intravenous contrast material. All CT scans at this facility use dose modulation, iterative reconstruction, and/or weight based dosing when appropriate to reduce radiation dose to as low as reasonably achievable. IV CONTRAST: No IV contrast used,0ml TOTAL DOSE: 18.7 CTDIvol(mGy) FINDINGS: KIDNEYS: Nonobstructing right renal calculi are present. There is no evidence of hydronephrosis or ureteral calculus. Punctate nonobstructing calculus is present in the lower pole of the left kidney. ADRENALS: Normal. No mass or enlargement. URINARY BLADDER: Normal. No visible focal wall thickening, lesion, or calculus. LIVER: Normal. No enlargement, atrophy, abnormal density, or significant focal lesion. BILIARY: The gallbladder is absent. Surgical clips are present in the gallbladder fossa. PANCREAS: Normal. No lesion, fluid collection, ductal dilatation, or atrophy. SPLEEN: Normal. No enlargement or focal lesion. AORTA/VASCULAR: Normal. No aneurysm. RETROPERITONEUM: Normal. No mass or adenopathy. BOWEL/MESENTERY: Normal. No visible mass, obstruction, or bowel wall thickening. ABDOMINAL WALL: Normal. No mass or hernia. PELVIC NODES: Normal. No adenopathy. PELVIC ORGANS: Normal. No visible mass. Pelvic organs appropriate for patient age. BONES: Normal. No bony lesion or fracture. Continued Report - Page 2 of 2 Patient: GISEL CARLTON Phone#: : [phone] Age: 45 Gender: F Pt. Type: ER Account: [id number] Location: 052 Ordering: DR. SHAYNA OCHOA Exam Date: 12/04/2020/19:46 Family Phys: Charge Code: [id number] Physician: Person Order #: [id number] DLP Dose#: 18.7 mGy LUNG BASES: Normal. No visible pulmonary or pleural disease. OTHER: Negative. CONCLUSION: 1. Nonobstructing renal calculi are present. There is no evidence of hydronephrosis. Dictated by: Luisa Ruvalcaba MD on 12/05/2020 at 8:31 Approved by: Luisa Ruvalcaba MD on 12/05/2020 at 8:34 Normal [facility] LIPASEon 12-04-2020 Lipase [Catalytic activity/Vol] 216.0 U/L Normal 73.0 - 393 [facility] Comment on above: Performed By: #### 2 04157 #### [facility],[address] [place] [address] URINALYSISon 12-04-2020 Amorphous NONE Normal [facility] Comment on above: Performed By: #### 2 48793 #### [facility],[address] [place] [address] Bacteria 2+ Normal [facility] Comment on above: Performed By: #### 2 92349 #### [facility],[address] [place] [address] Bilirubin Ql (U) Negative Normal NORMAL: NEGATIVE [facility] Comment on above: Performed By: #### 2 61067 #### [facility],[address] [place] [address] Casts NONE Normal [facility] Comment on above: Performed By: #### 2 87446 #### [facility],[address] [place] [address] Clarity (U) clear Normal NORMAL: CLEAR [facility] Comment on above: Performed By: #### 2 85347 #### [facility],[address] [place], [place] [id number] Color (U) p.yel Normal NORMAL: YELLOW [facility] Comment on above: Performed By: #### 2 75096 #### [facility],[address] [place], [place] [id number] Crystals LM Nom (Urine sed) NONE Normal [facility] Comment on above: Performed By: #### 2 51627 #### [facility],[address] [place], [place] [address] Epi Cells MODERATE Normal [facility] Comment on above: Performed By: #### 2 56097 #### [facility],[address] [place], [place] [address] Glucose Ql (U) 1000 Abnormal NORMAL: NORMAL [facility] Comment on above: Performed By: #### 2 10947 #### [facility],[address] [place], [place] [address] Hemoglobin Ql (U) 250 Abnormal NORMAL: NEGATIVE [facility] Comment on above: Performed By: #### 2 21426 #### [facility],[address] [place], [place] [address] Ketone Negative Normal NORMAL: NEGATIVE [facility] Comment on above: Performed By: #### 2 51261 #### [facility],[address] [place], [place] [address] Leukocytes 500 Abnormal NORMAL: NEGATIVE [facility] Comment on above: Performed By: #### 2 98558 #### [facility],[address] [place], [place] [address] Mucous NONE Normal [facility] Comment on above: Performed By: #### 2 68528 #### [facility],[address] [place], [place] [address] Nitrite Ql (U) Negative Normal NORMAL: NEGATIVE [facility] Comment on above: Performed By: #### 2 35884 #### [facility],[address] [place] [address] pH (U) 7 [pH] Normal NORMAL: 5.0-8.0 [facility] Comment on above: Performed By: #### 2 07997 #### [facility],[address] [place] [address] Protein Ql (U) 30 Abnormal NORMAL: NEGATIVE [facility] Comment on above: Performed By: #### 2 89819 #### [facility],[address] [place] [address] Rbc TNTC Normal 0-3/hpf [facility] Comment on above: Performed By: #### 2 36930 #### [place] [address] Sp [place] 1.015 Normal NORMAL: 1.010-1.03 0 [facility] Comment on above: Performed By: #### 2 85485 #### [place] [address] Specimen Type UNSPECIFIED Normal [place] Comment on above: Performed By: #### 2 56689 #### [place] [address] Urinalysis dipstick W Reflex Microscopic panel (U) SEE BELOW Normal [facility] Comment on above: Result Comment: MICR OSCOPIC Performed By: #### 2 76093 #### [place] [address] Urobilinog 1 Abnormal NORMAL: NORMAL [facility] Comment on above: Performed By: #### 2 56170 #### [place] [address] WBC (U) [#/Vol] /uL Normal 0-5/hpf [facility] Comment on above: Performed By: #### 2 65046 #### [place] [address] Yeast NONE Normal [facility] Comment on above: Performed By: #### 2 25958 #### [facility],[address] [address] CBC Auto DifferentialOrdered By: Raj Manning on 11-25-2020 Basophils (Bld) [#/Vol] 0.0 10*3/uL 0.0 - 0.2 K/uL [employer] Work Phone: Basophils/100 WBC (Bld) 0.8 % [employer] Work Phone: Eosinophils (Bld) [#/Vol] 0.1 10*3/uL 0.0 - 0.7 K/uL [employer] Work Phone: Eosinophils/100 WBC (Bld) 1.8 % [employer] Phone: Hematocrit (Bld) [Volume fraction] 40.0 % 37.0 - 47.0 % [employer] Phone: Hemoglobin.gastrointes tinal spec 1 Ql (Stl) 13.4 g/dL 12.0 - 16.0 g/dL [employer] Phone: Lymphocytes (Bld) [#/Vol] 1.9 10*3/uL 1.0 - 4.8 K/uL [employer] Phone: Lymphocytes/100 WBC (Bld) 36.3 % [employer] Phone: MCH (RBC) [Entitic mass] 27.8 pg 27.0 - 31.3 pg [employer] Work Phone: MCHC (RBC) [Mass/Vol] 33.5 % 33.0 - 37.0 % [employer] Phone: MCV (RBC) [Entitic vol] 83.2 fL 82.0 - 100.0 fL [employer] Phone: Monocytes (Bld) [#/Vol] 0.4 10*3/uL 0.2 - 0.8 K/uL [employer] Work Phone: Monocytes/100 WBC (Bld) 8.0 % [employer] Phone: Neutrophils Absolute 2.7 K/uL 1.4 - 6 .5 K/uL [employer] Phone: Neutrophils/100 WBC (Bld) 53.1 % [employer] Phone: Platelet distribution width (Bld) [Ratio] 14.4 % 11.5 - 14.5 % [employer] Phone: Platelets (Bld) [#/Vol] 212 10*3/uL 130 - 400 K/uL [employer] Phone: RBC (Bld) [#/Vol] 4.81 10*6/uL [facility] Phone: WBC (Bld) [#/Vol] 5.2 10*3/uL 4.8 - 10.8 K/uL [facility] Phone: [employer] Phone: Comprehensive Metabolic Pane lOrdered By: Raj Manning on 11-25-2020 Albumin [Mass/Vol] 4.6 g/dL 3.5 - 4.6 g/dL [facility] Phone: ALP (Bld) [Catalytic activity/Vol] 76 U/L 40 - 130 U/L [facility] Phone: ALT [Catalytic activity/Vol] 21 U/L 0 - 33 U/L [facility] Phone: Anion gap [Moles/Vol] 10 mmol/L [facility] [employer] Work Phone: AST [Catalytic activity/Vol] 15 U/L 0 - 35 U/L [facility] [employer] Phone: Bilirubin [Mass/Vol] 0.4 mg/dL 0.2 - 0 .7 mg/dL [facility] Phone: Calcium [Mass/Vol] 9.7 mg/dL 8.5 - 9.9 mg/dL [employer] Phone: Chloride [Moles/Vol] 97 mmol/L [facility] [employer] Work Phone: CO2 [Moles/Vol] 27 mmol/L [facility] Work Phone: Creatinine [Mass/Vol] 0.56 mg/dL 0.50 - 0.90 mg/dL [facility] Phone: Free PSA/Total PSA [Mass fraction] 7.2 g/dL 6.3 - 8.0 g/dL [employer] Phone: GFR >60.0 >60 [employer] Phone: Comment on above: >60 mL/min/1.73m2 EG FR, calc. for ages 18 and older using the MDRD formula (not corrected for weight), is valid for stable renal function. GFR Non- >60.0 >60 [facility] Work Phone: Comment on above: >60 mL/min/1.73m2 EG FR, calc. for ages 18 and older using the MDRD formula (not corrected for weight), is valid for stable renal function. Globulin (S) [Mass/Vol] 2.6 g/dL 2.3 - 3.5 g/dL [facility] Phone: Glucose [Mass/Vol] 257 mg/dL High 70 - 99 mg/dL [facility] Work Phone: Interpretation and review of laboratory results Abnormal [facility] Phone: Potassium [Moles/Vol] 3.7 mmol/L [place] [employer] Work Phone: Sodium [Moles/Vol] 134 mmol/L Low [facility] [employer] Phone: Urea nitrogen (BldV) [Mass/Vol] 17 mg/dL 6 - 20 mg/dL [facility] Phone: [facility] Work Phone: Microscopic UrinalysisOrdere d By: Raj Manning on 11-25-2020 Bacteria, UA RARE Abnormal Negative /HPF [facility] Work Phone: Epithelial Cells, UA 3-5 [facility] Work Phone: Hyaline Casts, UA 3-5 [facility] Work Phone: Interpretation and review of laboratory results Abnormal [facility] Work Phone: RBC, UA 6-10 Abnormal [facility] Work Phone: WBC, UA 50-100 Abnormal [facility] Work Phone: [facility] Work Phone: UrinalysisOrdered By: Raj Manning on 11-25-2020 Bilirubin Urine Negative Negative [facility] Work Phone: Blood, Urine Negative Negative [facility] Work Phone: Clarity, UA CLOUDY Abnormal Clear [facility] Work Phone: Color, UA Yellow Straw/Clay ow [facility] Work Phone: Glucose, Ur >=1000 Abnormal Negative mg/dL [facility] Work Phone: Interpretation and review of laboratory results Abnormal [facility] Work Phone: Ketones Ql (U) TRACE Abnormal Negative mg/dL [facility] Work Phone: Leukocyte esterase Test strip Ql (U) MODERATE Abnormal Negative [facility] Work Phone: Nitrite, Urine Negative Negative [employer] [facility] Work Phone: pH, UA 6.5 [facility] Work Phone: Protein, UA Negative Negative mg/dL [facility] Work Phone: Specific [place], UA 1.029 [facility] Work Phone: Urobilinogen, Urine 1.0 <2.0 E.U./dL [facility] Work Phone: [facility] Work Phone: CBCon 11-19-2020 ABSOLUTE BAS 0.1 10*3/uL Normal 0.0-0.2 [facility] Comment on above: Performed By: #### A CBC #### Testing performed at [address] [address] ABSOLUTE EOS 0.20 10*3/uL Normal 0.0-0.7 [facility] Comment on above: Performed By: #### A CBC #### Testing performed at [address] [address] ABSOLUTE NEUTROPHIL COUNT 2.6 10*3/uL Normal 1.4-6.5 [facility] Comment on above: Performed By: #### A CBC #### Testing performed at [address] [address] Basophils/100 WBC (Bld) 1.1 % Normal 0.0-2.0 [facility] Comment on above: Performed By: #### A CBC #### Testing performed at [address] [address] DTYPE AUTO DIFF Normal [facility] Comment on above: Performed By: #### A CBC #### Testing performed at [address] [address] Eosinophils/100 WBC (Bld) 3.0 % Normal 0.0-11.0 [facility] Comment on above: Performed By: #### A CBC #### Testing performed at [address] [address] Lymphocytes (Bld) [#/Vol] 2.10 10*3/uL Normal 1.2-3.4 [facility] Comment on above: Performed By: #### A CBC #### Testing performed at [address] [address] Lymphocytes/100 WBC (Bld) 38.9 % Normal 20.0-55.0 [facility] Comment on above: Performed By: #### A CBC #### Testing performed at [address] [address] Monocytes (Bld) [#/Vol] 0.5 10*3/uL Normal 0.0-0.7 [facility] Comment on above: Performed By: #### A CBC #### Testing performed at [address] [address] Monocytes/100 WBC (Bld) 8.5 % Normal 0.0-10.0 [facility] Comment on above: Performed By: #### A CBC #### Testing performed at [address] [address] Neutrophils/100 WBC (Bld) 48.5 % Normal 37.0-75.0 [facility] Comment on above: Performed By: #### A CBC #### Testing performed at [address] [address] Erythrocyte distribution width (RBC) [Ratio] 14.6 % High 11.5-14.5 [facility] Comment on above: Performed By: #### A CBC #### Testing performed at [address] [address] Hematocrit (Bld) [Volume fraction] 39.7 % Normal 36.0-48.0 [facility] Comment on above: Performed By: #### A CBC #### Testing performed at [address] [address] Hemoglobin (Bld) [Mass/Vol] 13.6 g/dL Normal 12.0-16.0 [facility] Comment on above: Performed By: #### A CBC #### Testing performed at [address] [address] MCH (RBC) [Entitic mass] 28.8 pg Normal 26.0-35.0 [facility] Comment on above: Performed By: #### A CBC #### Testing performed at [address] [address] MCHC (RBC) [Mass/Vol] 34.3 g/dL Normal 27.0-37.0 [facility] Comment on above: Performed By: #### A CBC #### Testing performed at [address] [address] MCV (RBC) [Entitic vol] 84.1 fL Normal 80.0-100.0 [facility] Comment on above: Performed By: #### A CBC #### Testing performed at [address] [address] Platelet mean volume (Bld) [Entitic vol] 7.8 fL Normal 7.4-11.0 [facility] Comment on above: Performed By: #### A CBC #### Testing performed at [address] [address] Platelets (Bld) [#/Vol] 226 10*3/uL Normal 130.0-400. 0 [facility] Comment on above: Performed By: #### A CBC #### Testing performed at [address] [address] RBC (Bld) [#/Vol] 4.73 10*6/uL Normal 4.0-5.4 [facility] Comment on above: Performed By: #### A CBC #### Testing performed at [address] [address] WBC (Bld) [#/Vol] 5.5 10*3/uL Normal 3.6-11.0 [facility] Comment on above: Performed By: #### A CBC #### Testing performed at [address] [address] CBC, EDIF, PLATELETOrdered B y: Ludin Pay on 11-19-2020 ABSOLUTE BASOPHIL COUNT 0.1 10*3/uL 0.0 - 0.2 10*3/uL [facility] Basophils/100 WBC (Bld) 1.1 % 0.0 - 2.0 % [facility] Differential cell count method Nom (Bld) AUTO DIFF % [facility] Eosinophils (Bld) [#/Vol] 0.20 10*3/uL 0.0 - 0.7 10*3/uL [facility] Eosinophils/100 WBC (Bld) 3.0 % 0.0 - 11.0 % [facility] Erythrocyte distribution width (RBC) [Ratio] 14.6 % High 11.5 - 14.5 % [facility] Hematocrit (Bld) [Volume fraction] 39.7 % 36.0 - 48.0 % [facility] Hemoglobin (Bld) [Mass/Vol] 13.6 g/dL [facility] Interpretation and review of laboratory results Abnormal [facility] Lymphocytes (Bld) [#/Vol] 2.10 10*3/uL 1.2 - 3.4 10*3/uL [facility] Lymphocytes/100 WBC (Bld) 38.9 % 20.0 - 55.0 % [facility] MCH (RBC) [Entitic mass] 28.8 pg 26.0 - 35.[address] [facility] MCHC (RBC) [Mass/Vol] 34.3 g/dL [facility] MCV (RBC) [Entitic vol] 84.[address] [facility] Monocytes (Bld) [#/Vol] 0.5 10*3/uL 0.0 - 0.7 10*3/uL [facility] Monocytes/100 WBC (Bld) 8.5 % 0.0 - 10.0 % [facility] Neutrophils (Bld) [#/Vol] 2.6 10*3/uL 1.4 - 6.5 10*3/uL [facility] Neutrophils/100 WBC (Bld) 48.5 % 37.0 - 75.0 % [facility] Platelet mean volume (Bld) [Entitic vol] 7.[address] [facility] Platelets (Bld) [#/Vol] 226 10*3/uL 130.0 - 400.0 10*3/uL [facility] RBC (Bld) [#/Vol] 4.73 10*6/uL 4.0 - 5.4 10*6/uL [facility] WBC (Bld) [#/Vol] 5.5 10*3/uL 3.6 - 11.0 10*3/uL [facility] CMP FASTINGon 11-19-2020 A:G RATIO 1.4 RATIO Normal 1.3-2.2 [facility] Comment on above: Performed By: #### A CBC #### Testing performed at [address] [address] ALBUMIN 4.7 G/dl Normal 3.5-5.0 [facility] Comment on above: Performed By: #### A CBC #### Testing performed at [address] [address] ALP [Catalytic activity/Vol] 82 U/L Normal 38-126 [facility] Comment on above: Performed By: #### A CBC #### Testing performed at [address] [place] [address] ALT [Catalytic activity/Vol] 29 U/L Normal <35 [facility] Comment on above: Performed By: #### A CBC #### Testing performed at [address] [address] AST [Catalytic activity/Vol] 39 U/L High 14-36 [facility] Comment on above: Performed By: #### A CBC #### Testing performed at [address] [address] Bilirubin [Mass/Vol] 0.6 mg/dL Normal 0.2-1.3 [facility] Comment on above: Performed By: #### A CBC #### Testing performed at [address] [address] Calcium [Mass/Vol] 10.4 mg/dL High 8.4-10.2 [facility] Comment on above: Performed By: #### A CBC #### Testing performed at [address] [address] Chloride [Moles/Vol] 99 mmol/L Normal 98-107 [facility] Comment on above: Result Comment: Navjot reyez note: Triglyceride levels of 600mg/dL or higher may positively bias chloride results by approximately 2.1 mmol Performed By: #### A CBC #### Testing performed at [address] [place] [address] CO2 [Moles/Vol] 29 mmol/L Normal 22-30 [facility] Comment on above: Performed By: #### A CBC #### Testing performed at [address] [address] Creatinine [Mass/Vol] 0.53 mg/dL Low 0.7-1.2 [facility] Comment on above: Performed By: #### A CBC #### Testing performed at [address] [place] [address] EST. GFR, >60 Normal [facility] Comment on above: Performed By: #### A CBC #### Testing performed at [address] [place] [address] EST. GFR,Non >60 Normal [facility] Comment on above: Performed By: #### A CBC #### Testing performed at [address] [place] [address] GFR Information Average GFR for 40-4 9 years old = 99. Normal [facility] Comment on above: Result Comment: [employer] aiyana Kidney disease, GFR = <60. Kidney failure, GFR = <15. The GFR estimate is not adjusted for extreme body surface area or acute process, nor has it been validated for women or ethnic groups other than and . Performed By: #### A CBC #### Testing performed at [address] [address] Glucose [Mass/Vol] 301 mg/dL High 70-100 [facility] Comment on above: Result Comment: NORMAL <100 mg/dL PREDIABETES 101-126 mg/dL DIABETES 126 mg/dL or higher Performed By: #### A CBC #### Testing performed at [place] [address] [place] [address] Potassium [Moles/Vol] 3.8 mmol/L Normal 3.5-5.1 [facility] Comment on above: Performed By: #### A CBC #### Testing performed at [place] [address] [place] [address] Protein [Mass/Vol] 8.1 g/dL Normal 6.3-8.2 [facility] Comment on above: Performed By: #### A CBC #### Testing performed at [address] [address] Sodium [Moles/Vol] 140 mmol/L Normal 137-145 [facility] Comment on above: Performed By: #### A CBC #### Testing performed at [address] [address] Urea nitrogen [Mass/Vol] 13 mg/dL Normal 7-20 [facility] Comment on above: Performed By: #### A CBC #### Testing performed at [address] [address] COMPREHENSIVE METABOLIC PANE LOrdered By: Ludin Thomas on 11-19-2020 Albumin [Mass/Vol] 4.7 G/dl 3.5 - 5.0 G/dl [facility] Albumin/Globulin [Mass ratio] 1.4 {ratio} [facility] ALP [Catalytic activity/Vol] 82 U/L [facility] ALT [Catalytic activity/Vol] 29 U/L <35 IU/L [facility] AST [Catalytic activity/Vol] 39 U/L [facility] Bilirubin [Mass/Vol] 0.6 mg/dL [facility] Calcium [Mass/Vol] 10.4 mg/dL [facility] Chloride [Moles/Vol] 99 mmol/L [facility] Comment on above: Please note: Triglyc eride levels of 600mg/dL or higher may positively bias chloride results by approximately 2.1 mmol CO2 [Moles/Vol] 29 mmol/L [facility] Creatinine [Mass/Vol] 0.53 mg/dL Low [facility] GFR COMMENT Average GFR for 40-4 9 years old = 99. [facility] Comment on above: Chronic Kidney disea se, GFR = <60. Kidney failure, GFR = <15. The GFR estimate is not adjusted for extreme body surface area or acute process, nor has it been validated for women or ethnic groups other than and . GFR/1.73 sq M.predicted among blacks MDRD (S/P/Bld) [Vol rate/Area] mL/min/{1.73_m2} ml/min/1.7 3sq.m [facility] GFR/1.73 sq M.predicted among non-blacks MDRD (S/P/Bld) [Vol rate/Area] mL/min/{1.73_m2} ml/min/1.7 3sq.m [facility] Glucose post fast [Mass/Vol] 301 mg/dL High [facility] Comment on above: NORMAL <100 mg/dL PREDIABETES 101-126 mg/dL DIABETES 126 mg/dL or higher Interpretation and review of laboratory results Abnormal [facility] Potassium [Moles/Vol] 3.8 mmol/L [facility] Protein [Mass/Vol] 8.1 g/dL [facility] Sodium [Moles/Vol] 140 mmol/L [facility] Urea nitrogen [Mass/Vol] 13 mg/dL [facility] LIPASEOrdered By: Ludin vitale on 11-19-2020 Lipase [Catalytic activity/Vol] 217 U/L 23 - 300 U/L [facility] LIPASE,SERUMon 11-19-2020 LIPASE,SERUM 217 U/L Normal 23-300 [facility] Comment on above: Performed By: #### A CBC #### [place] [address] No Panel InformationOrdered By: Ludin Thomas on 11-19-[address] [facility] Interpretation and review of laboratory results Abnormal [facility] URINALYSIS, MACROOrdered By: Ludin Thomas on 11-19-2020 Bilirubin Ql (U) Negative NEGATIVE [facility] Clarity (U) SL CLOUDY Abnormal CLEAR [facility] Color (U) YELLOW YELLOW [facility] Glucose Test strip (U) [Mass/Vol] 500 mg/dl Abnormal NEGATIVE [facility] Hemoglobin Ql (U) LARGE Abnormal NEGATIVE [facility] Ketones (U) [Mass/Vol] 15 mg/dL Abnormal NEGATIVE [facility] Leukocyte esterase Test strip Ql (U) TRACE Abnormal NEGATIVE [facility] Nitrite Ql (U) Negative NEGATIVE [facility] pH (U) 5.5 [pH] [facility] Protein Ql (U) TRACE Abnormal NEGATIVE mg/dl [facility] Specific gravity (U) [Rel density] >1.[address] [facility] Urobilinogen (U) [Mass/Vol] 2.0 mg/dL High [facility] URINE MACROSCOPICon 11-20-19 21 Bilirubin Ql (U) Negative Normal NEGATIVE [facility] Clarity (U) SL CLOUDY Abnormal CLEAR [facility] Color (U) YELLOW Normal YELLOW [facility] Glucose Ql (U) 500 mg/dl Abnormal NEGATIVE [facility] pH (U) 5.5 [pH] Normal 5.0-7.0 [facility] URINE HEMOGLOBIN LARGE Abnormal NEGATIVE [facility] URINE KETONE 15 mg/dl Abnormal NEGATIVE [facility] URINE LEUKOTEST TRACE Abnormal NEGATIVE [facility] URINE NITRATES Negative Normal NEGATIVE [facility] URINE SPEC GRAVITY >1.030 High 1.010-1.0 2 5 [facility] URINE TOTAL PROTEIN TRACE Abnormal NEGATIVE [facility] Urobilinogen Qn (U) 2.0 {Diaz'U}/dL High 0.2-1.0 [facility] URINE MICROSCOPICon 11-20-19 21 BACTERIA 1+ Abnormal NEGATIVE [facility] CASTS NONE Normal NONE [facility] CRYSTAL RARE Abnormal NONE [facility] Comment on above: Result Comment: CA O XALATE CRYSTALS Epithelial cells LM Ql (Urine sed) 20 TO 30 Normal [facility] Mucus Ql (Urine sed) 2+ Abnormal NEGATIVE [facility] URINE COMMENT POSSIBLY CONTAMINATE D SPECIMEN, CULTURE MUST BE ORDERED SEPARATELY IF DEEMED NECESSARY. Normal [facility] URINE RBC'S 1 TO 5 Normal NEGATIVE [facility] URINE WBC'S 1 TO 5 Normal NEGATIVE [facility] URINE MICROSCOPICOrdered By: Ludin Thomas on 11-19-2020 Bacteria LM.HPF (Urine sed) [#/Area] 1+ Abnormal NEGATIVE [facility] Casts LM.LPF (Urine sed) [#/Area] NONE NONE /LPF [facility] Crystals LM Nom (Urine sed) RARE Abnormal NONE [facility] Comment on above: CA OXALATE CRYSTALS Epithelial cells LM Ql (Urine sed) 20 TO 30 /HPF [facility] Mucus Ql (Urine sed) 2+ Abnormal NEGATIVE [facility] RBC LM.HPF (Urine sed) [#/Area] 1 TO 5 NEGATIVE /HPF [facility] Urine sediment comments LM Clint (Urine sed) POSSIBLY CONTAMINATED SPECIMEN, CULTURE MUST BE ORDERED SEPARATELY IF DEEMED NECESSARY. [facility] WBC LM.HPF (Urine sed) [#/Area] 1 TO 5 NEGATIVE /HPF [facility] XR ACUTE ABDOMINAL SERIESon 11-19-2020 XR ACUTE ABDOMINAL SERIES EXAM: XR ACUTE ABDOMINAL SERIES HISTORY: Pain COMPARISON: Acute abdominal series from 11/04/2020. TECHNIQUE: Single view chest was done along with flat and upright films of the abdomen and pelvis. FINDINGS: Trachea, mediastinum, heart size, diaphragm and bony elements are intact. Slight bronchial wall thickening is noted about the hilar regions. Cholecystectomy clips in the right upper quadrant. There is no free air the diaphragm. Stomach bubble is not dilated. The bowel gas pattern is unremarkable with mild stool throughout the colon. Calcified phleboliths in the pelvis. IMPRESSION: 1. Slight bilateral perihilar bronchitis which may be acute or chronic in nature. 2. Unremarkable bowel gas pattern. 3. Patient is status post cholecystectomy. Normal [facility] XR ACUTE ABDOMINAL SERIESOrd ered By: Ludin Thomas on 11-19-2020 IMPRESSION: 1. Sligh t bilateral perihilar bronchitis which may be acute or chronic in nature. 2. Unremarkable bowel gas pattern. 3. Patient is status post cholecystectomy. [facility] EXAM: XR ACUTE ABDOM INAL SERIES HISTORY: Pain COMPARISON: Acute abdominal series from 11/04/2020. TECHNIQUE: Single view chest was done along with flat and upright films of the abdomen and pelvis. FINDINGS: Trachea, mediastinum, heart size, diaphragm and bony elements are intact. Slight bronchial wall thickening is noted about the hilar regions. Cholecystectomy clips in the right upper quadrant. There is no free air the diaphragm. Stomach bubble is not dilated. The bowel gas pattern is unremarkable with mild stool throughout the colon. Calcified phleboliths in the pelvis. [facility] User, Interfaces - 11/19/2020 9:33 PM EDT EXAM: XR ACUTE ABDOMINAL SERIES HISTORY: Pain COMPARISON: Acute abdominal series from 11/04/2020. TECHNIQUE: Single view chest was done along with flat and upright films of the abdomen and pelvis. FINDINGS: Trachea, mediastinum, heart size, diaphragm and bony elements are intact. Slight bronchial wall thickening is noted about the hilar regions. Cholecystectomy clips in the right upper quadrant. There is no free air the diaphragm. Stomach bubble is not dilated. The bowel gas pattern is unremarkable with mild stool throughout the colon. Calcified phleboliths in the pelvis. IMPRESSION IMPRESSION: 1. Slight bilateral perihilar bronchitis which may be acute or chronic in nature. 2. Unremarkable bowel gas pattern. 3. Patient is status post cholecystectomy. [facility] CBC W Auto Differential pane l (Bld)on 11-05-2020 Basophils (Bld) [#/Vol] 0.07 10*3/uL Normal <=0.70 [facility] Comment on above: Performed By: #### G LUM #### [place] [address] [employer] [facility] CL[facility] [id number] Basophils/100 WBC (Bld) 1.0 % Normal <=2.0 [facility] Comment on above: Performed By: #### G LUM #### [place] [address] [employer] - [facility] CLIA [id number] Eosinophils (Bld) [#/Vol] 0.09 10*3/uL Normal <=0.70 [facility] Comment on above: Performed By: #### G LUM #### [place] [address] [employer] - Patricia Bertrand CLIA [id number] Eosinophils/100 WBC (Bld) 1.3 % Normal <=10.0 [facility] Comment on above: Performed By: #### G LUM #### [facility] [address] [place] [address] [employer] - Patricia Bertrand CLIA [id number] Erythrocyte distribution width (RBC) [Entitic vol] 37.7 fL Normal 36.4-46.3 [facility] Comment on above: Performed By: #### G LUM #### [place] [address] [place] [address] [employer] - Patricia Bertrand CLIA [id number] Hematocrit (Bld) [Volume fraction] 37.6 % Normal 37.0-47.0 [facility] Comment on above: Performed By: #### G LUM #### [address] [place] [address] [employer] - Patricia Bertrand CLIA [id number] Hemoglobin (Bld) [Mass/Vol] 12.6 g/dL Normal 12.0-16.0 [facility] Comment on above: Performed By: #### G LUM #### [place] [address] [place] [address] [employer] - Patricia Bertrand CLIA [id number] Immature granulocytes (Bld) [#/Vol] 0.01 10*3/uL Normal <=0.10 [facility] Comment on above: Performed By: #### G LUM #### [place] [address] [place] [address] [employer] - Patricia Bertrand CLIA [id number] Immature granulocytes/100 WBC (Bld) 0.10 % Normal <=1.50 [facility] Comment on above: Performed By: #### G LUM #### [address] [place] [address] [employer] - Patricia Bertrand CLIA [id number] Lymphocytes (Bld) [#/Vol] 2.52 10*3/uL Normal 1.20-3.40 [facility] Comment on above: Performed By: #### G LUM #### [place] [address] [place] [address] [employer] - Patricia Bertrand CLIA [id number] Lymphocytes/100 WBC (Bld) 37.4 % Normal 20.0-40.0 [facility] Comment on above: Performed By: #### G LUM #### [place] [address] [employer] - Patricia Bertrand CLIA [id number] MCH (RBC) [Entitic mass] 27.6 pg Normal 27.0-31.0 [facility] Comment on above: Performed By: #### G LUM #### [place] [address] [employer] [facility] CLIA [id number] MCHC (RBC) [Mass/Vol] 33.5 g/dL Normal 32.0-36.0 [facility] Comment on above: Performed By: #### G LUM #### [place] [address] [employer] - Patricia Bertrand CLIA [id number] MCV (RBC) [Entitic vol] 82.5 fL Normal 80.0-100.0 [facility] Comment on above: Performed By: #### G LUM #### [place] [address] [employer] [facility] CLIA [id number] Monocytes (Bld) [#/Vol] 0.62 10*3/uL High 0.10-0.60 [facility] Comment on above: Performed By: #### G LUM #### [place] [address] [employer] [facility] CLIA [id number] Monocytes/100 WBC (Bld) 9.2 % High <=8.0 [facility] Comment on above: Performed By: #### G LUM #### [place] [address] [employer] [facility] CLIA [id number] Neutrophils (Bld) [#/Vol] 3.43 10*3/uL Normal 1.40-6.50 [facility] Comment on above: Performed By: #### G LUM #### [facility] [address] [place] [address] [employer] - Patricia Bertrand CLIA [id number] Neutrophils/100 WBC (Bld) 51.0 % Normal 50.0-70.0 [facility] Comment on above: Performed By: #### G LUM #### [place] [address] [place] [address] [employer] - Patricia Bertrand CLIA [id number] Nucleated RBC (Bld) [#/Vol] 0.00 10*3/uL Normal <=0.10 [facility] Comment on above: Performed By: #### G LUM #### [place] [address] [place] [address] [employer] - Patricia Bertrand CLIA [id number] Platelet mean volume (Bld) [Entitic vol] 9.7 fL Normal 9.0-13.0 [facility] Comment on above: Performed By: #### G LUM #### [place] [address] [place] [address] [employer] - Patricia Bertrand CLIA [id number] Platelets (Bld) [#/Vol] 216 10*3/uL Normal 130-400 [facility] Comment on above: Performed By: #### G LUM #### [place] [address] [place] [address] [employer] - Patricia Bertrand CLIA [id number] RBC (Bld) [#/Vol] 4.56 10*6/uL Normal 4.00-6.30 [facility] Comment on above: Performed By: #### G LUM #### [place] [address] [place] [address] [employer] - Patricia Bertrand CLIA [id number] WBC (Bld) [#/Vol] 6.74 10*3/uL Normal 4.80-10.80 [facility] Comment on above: Performed By: #### G LUM #### [place] [address] [place] [address] [employer] - Patricia SÁNCHEZIA [id number] Comprehensive metabolic 2000 panelon 11-05-2020 Albumin [Mass/Vol] 3.8 g/dL Normal 3.4-5.0 [facility] Comment on above: Performed By: #### 2 4323-8, 24688-8, 3040-3, 58105-2, 45899-6 #### [facility] [address] [place] [address] [employer] - Patricia SÁNCHEZIA [id number] ALP [Catalytic activity/Vol] 72 U/L Normal 50-136 [facility] Comment on above: Performed By: #### 2 4323-8, 68378-4, 3040-3, 22492-7, 28400-0 #### [facility] [address] [place] [address] [employer] - Patricia SÁNCHEZIA [id number] ALT [Catalytic activity/Vol] 25 U/L Normal 14-59 [facility] Comment on above: Performed By: #### 2 4323-8, 27847-3, 3040-3, 75066-9, 45709-4 #### [facility] [address] [place] [address] [employer] - Patricia SÁNCHEZIA [id number] Anion gap [Moles/Vol] 6.0 mmol/L Normal <=15.0 [facility] Comment on above: Performed By: #### 2 4323-8, 99573-0, 3040-3, 37505-2, 60085-2 #### [facility] [address] [place] [address] [employer] - Patricia SÁNCHEZIA [id number] AST [Catalytic activity/Vol] 14 U/L Low 15-37 [facility] Comment on above: Performed By: #### 2 4323-8, 28263-7, 3040-3, 28658-0, 30051-2 #### [facility] [address] [place] [address] [employer] - Patricia SÁNCHEZIA [id number] Bilirubin [Mass/Vol] 0.4 mg/dL Normal 0.2-1.0 [facility] Comment on above: Performed By: #### 2 4323-8, 86279-9, 3040-3, 85008-8, 07398-0 #### [facility] [address] [place] [address] [employer] - Patricia SÁNCHEZIA [id number] Calcium [Mass/Vol] 9.5 mg/dL Normal 8.5-10.1 [facility] Comment on above: Performed By: #### 2 4323-8, 17786-0, 3040-3, 95347-9, 23225-7 #### [facility] [address] [place] [address] [employer] - Patricia SÁNCHEZIA [id number] Chloride [Moles/Vol] 105 mmol/L Normal 98-107 [facility] Comment on above: Performed By: #### 2 4323-8, 35190-3, 3040-3, 24864-6, 11893-8 #### [facility] [address] [place] [address] [employer] - Patricia SÁNCHEZIA [id number] CO2 [Moles/Vol] 30 mmol/L Normal 21-32 [facility] Comment on above: Performed By: #### 2 4323-8, 64685-0, 3040-3, 87362-7, 08185-9 #### [facility] [address] [place] [address] [employer] - Patricia SÁNCHEZIA [id number] Creatinine [Mass/Vol] 0.63 mg/dL Normal 0.51-0.95 [facility] Comment on above: Performed By: #### 2 4323-8, 52207-2, 3040-3, 33787-8, 59468-2 #### [facility] [address] [place] [address] [employer] - Patricia SÁNCHEZIA [id number] GFR/1.73 sq M.predicted MDRD (S/P/Bld) [Vol rate/Area] mL/min/{1.73_m2} Normal >=59 [facility] Comment on above: Performed By: #### 2 4323-8, 16752-7, 3040-3, 64128-0, 22961-8 #### [facility] [address] [place] [address] [employer] - Patricia YEPEZ [id number] Glucose [Mass/Vol] 129 mg/dL High 74-106 [facility] Comment on above: Performed By: #### 2 4323-8, 77653-0, 3040-3, 00770-1, 79218-2 #### [facility] [address] [place] [address] [employer] - Patricia YEPEZ [id number] HGFR GLOMERULAR FILTRATIO N RATE INTERPRETATION~The eGFR is calculated using the MDRD equation.~This equation has been validated in patients with chronic kidney disease;~however, it underestimates the GFR in healthy patients with GFR's over 60 mL/min.~The equation is not valid in children under the age of 18.~NOTE: Criteria for Chronic Kidney Disease:~ ~1. Kidney damage for at least three months, as defined~by structural or functional abnormalities of the kidney,~with or without decreased glomerular filtration rate, manifested by either:~* Pathological abnormalities or~* Markers of Kidney damage, including abnormalities in~the composition of the blood or urine or abnormalities in imaging tests.~ ~2. GFR <60 mL/min/1.73 m squared for at least three months, with or without kidney damage.~ Normal [facility] Comment on above: Performed By: #### 2 4323-8, 98581-2, 3040-3, 25908-3, 92400-0 #### [facility] [address] [place] [address] [employer] - Patricia YEPEZ [id number] Potassium [Moles/Vol] 3.3 mmol/L Low 3.5-5.1 [facility] Comment on above: Performed By: #### 2 4323-8, 86526-2, 3040-3, 92531-3, 79767-9 #### [facility] [address] [place] [address] [employer] Operator - Patricia SÁNCHEZIA [id number] Protein [Mass/Vol] 7.4 g/dL Normal 6.4-8.2 [facility] Comment on above: Performed By: #### 2 4323-8, 00396-1, 3040-3, 68993-0, 40105-8 #### [facility] [address] [place] [address] [employer] Operator - Patricia SÁNCHEZIA [id number] Sodium [Moles/Vol] 141 mmol/L Normal 136-145 [facility] Comment on above: Performed By: #### 2 4323-8, 52055-2, 3040-3, 32539-7, 57472-6 #### [facility] [address] [place] [address] [employer] Operator - Patricia SÁNCHEZIA [id number] Urea nitrogen [Mass/Vol] 18 mg/dL High 7-17 [facility] Comment on above: Performed By: #### 2 4323-8, 03693-3, 3040-3, 05170-0, 48082-5 #### [facility] [address] [facility] [place] [address] [employer] Operator - Patricia YEPEZ [id number] Drugs identified Screen Nom (U)on 11-05-2020 Amphetamines Ql (U) Not detected Normal CUTOFF = 500 [facility] Comment on above: Performed By: #### 1 2286-1 #### [facility] [address] [place] [address] [employer] Operator - Patriciakvng SÁNCHEZIA [id number] Barbiturates Ql (U) Not detected Normal CUTOFF = 200 [facility] Comment on above: Performed By: #### 1 2286-1 #### [facility] [address] [facility] [place] [address] [employer] Operator - Patriciakvng SÁNCHEZIA [id number] Benzodiazepines Ql (U) Not detected Normal CUTOF F = 150 [facility] Comment on above: Performed By: #### 1 2286-1 #### [facility] [address] [place] [address] [employer] Operator - Patricia YEPEZ [id number] Cocaine Ql (U) Not detected Normal CUTOFF = 150 [facility] Comment on above: Performed By: #### 1 2286-1 #### [facility] [address] [place] [address] [employer] Operator - Patricia YEPEZ [id number] [facility] Drugs of abuse alecia lance provides only a preliminary analytical test result. A more specific alternate chemical method must be used in order to obtain a confimed analytical result. Clinical consideration and professional judgment should be applied to any drug of abuse test result, particularly when preliminary positive results are obtained. Normal [facility] Comment on above: Performed By: #### 1 2286-1 #### [facility] [address] [place] [address] [employer] Operator - Patricia YEPEZ [id number] Methadone Ql (U) Not detected Normal CUTOFF = 200 [facility] Comment on above: Performed By: #### 1 2286-1 #### [facility] [address] [place] [address] [employer] Operator - Patricia YEPEZ [id number] Opiates Ql (U) Not detected Normal CUTOFF = 300 [facility] Comment on above: Performed By: #### 1 2286-1 #### [facility] [address] [place] [address] [employer] Operator - Patricia SÁNCHEZIA [id number] oxyCODONE Ql (U) Not detected Normal CUTOFF = 100 [facility] Comment on above: Performed By: #### 1 2286-1 #### [facility] [address] [place] [address] [employer] Operator - Patricia YEPEZ [id number] Phencyclidine Ql (U) Not detected Normal CUTOFF = 25 [facility] Comment on above: Performed By: #### 1 2286-1 #### [facility] [address] [place] [address] [employer] Operator - Patricia SÁNCHEZIA [id number] Tetrahydrocannabinol Ql (U) Not detected Normal CUTOFF = 50 [facility] Comment on above: Performed By: #### 1 2286-1 #### [facility] [address] [place] [address] [employer] Operator - [facility] [id number] LACTATEon 11-05-2020 Lactate [Moles/Vol] 1.9 mmol/L Normal 0.4-2.0 [facility] Comment on above: Performed By: #### 1 2286-1 #### [facility] [address] [place] [address] [employer] Operator - [facility] [id number] LIPASEon 11-05-2020 Lipase [Catalytic activity/Vol] 201 U/L Normal 73-393 [facility] Comment on above: Performed By: #### G LUM #### [address] [place] [address] [employer] Operator - [facility] [id number] MAGNESIUMon 11-05-2020 Magnesium [Mass/Vol] 1.8 mg/dL Normal 1.6-2.6 [facility] Comment on above: Performed By: #### G LUM #### [address] [place] [address] [employer] Operator - [facility] [id number] TROPONIN Ion 11-05-2020 Troponin I.cardiac [Mass/Vol] ng/mL Normal <=0.045 [facility] Comment on above: Performed By: #### G LUM #### [address] [place] [address] [employer] Operator - [facility] [id number] TSH DL <= 0.05 mIU/L Qnon TSH Qn 7.950 uIU/mL High 0.358-3.74 0 [facility] Comment on above: Performed By: #### G LUM #### [address] [place] [address] [employer] Operator - [facility] [id number] URINALYSIS with MICROSCOPICo n 11-05-2020 AMMONIUM URATES Normal NONE SEEN [facility] Comment on above: Performed By: #### U AMR #### [facility] [address] [place], [place] [address] [employer] Operator - [facility] [id number] Performed for [facility] [address] [place], [place] [address] AMORPHOUS PHOSPHATES Normal NONE SEEN [facility] Comment on above: Performed By: #### U AMR #### [facility] [address] [place], [place] [address] [employer] Operator - [facility] [id number] Performed for [facility] [address] [place], [place] [address] AMORPHOUS URATES Normal NONE SEEN [facility] Comment on above: Performed By: #### U AMR #### [facility] [address] [place], [place] [address] [employer] Operator - [facility] [id number] Performed for [facility] [address] [place], [place] [address] BACTERIA Normal TRACE [facility] Comment on above: Performed By: #### U AMR #### [facility] [address] [place], [place] [address] [employer] Operator [facility] [id number] Performed for [facility] [address] [place], [place] [address] Bilirubin Ql (U) Negative Normal NEGATIVE [facility] Comment on above: Performed By: #### U AMR #### [facility] [address] [place], [place] [address] [employer] Operator - [facility] [id number] Performed for [facility] [address] [place], [place] [address] CALCIUM CARBONATES Normal NONE SEEN [facility] Comment on above: Performed By: #### U AMR #### [facility] [address] [place], [place] [address] [employer] Operator - [facility] [id number] Performed for [facility] [address] [place], [place] [address] CALCIUM OXALATES Normal FEW [facility] Comment on above: Performed By: #### U AMR #### [facility] [address] [place], [place] [address] [employer] Operator - Patricia YEPEZ [id number] Performed for [facility] [address] [place], [place] [address] CALCIUM PHOSPHATES Normal NONE SEEN [facility] Comment on above: Performed By: #### U AMR #### [facility] [address] [place], [place] [address] [employer] Operator - Patricia SÁNCHEZIA [id number] Performed for [facility] [address] [place], [place] [address] CHOLESTEROL CRYSTALS Normal NONE SEEN [facility] Comment on above: Performed By: #### U AMR #### [facility] [address] [place], [place] [address] [employer] Operator - Patricia SÁNCHEZIA [id number] Performed for [facility] [address] [place], [place] [address] Clarity (U) Cloudy Abnormal CLEAR [facility] Comment on above: Performed By: #### U AMR #### [facility] [address] [place], [place] [address] [employer] Operator - [facility]Bert[facility] CLIA [id number] Performed for [facility] [address] [place], [place] [address] Coarse Granular Casts LM.LPF (Urine sed) [#/Area] Normal NONE SEEN [facility] Comment on above: Performed By: #### U AMR #### [facility] [address] [place], [place] [address] [employer] Operator - Patricia YEPEZ [id number] Performed for [facility] [address] [place], [place] [address] Color (U) Yellow Normal YELLOW [facility] Comment on above: Performed By: #### U AMR #### [facility] [address] [place], [place] [address] [employer] Operator - Patricia Bertrand CLIA [id number] Performed for [facility] [address] [place], [place] [address] CYSTINE CRYSTALS Normal NONE SEEN [facility] Comment on above: Performed By: #### U AMR #### [facility] [address] [place] [address] [employer] Operator - Patricia YEPEZ [id number] Performed for [facility] [address] [place], [place] [address] Epithelial cells.renal LM.HPF (Urine sed) [#/Area] Normal NONE SEEN [facility] Comment on above: Performed By: #### U AMR #### [facility] [address] [place] [address] [employer] Operator - Patricia YEPEZ [id number] Performed for [facility] [address] [place], [place] [address] Epithelial cells.squamous LM.LPF (Urine sed) [#/Area] Normal 0-5 [facility] Comment on above: Performed By: #### U AMR #### [facility] [address] [place] [address] [employer] Operator - Patricia YEPEZ [id number] Performed for [facility] [address] [place] [address] Fatty casts LM.LPF (Urine sed) [#/Area] Normal NONE SEEN [facility] Comment on above: Performed By: #### U AMR #### [facility] [address] [place] [address] [employer] Operator - Patricia YEPEZ [id number] Performed for [facility] [address] [place], [place] [address] Fine Granular Casts LM.LPF (Urine sed) [#/Area] Normal NONE SEEN [facility] Comment on above: Performed By: #### U AMR #### [facility] [address] [place] [address] [employer] Operator - Patricia YEPEZ [id number] Performed for [facility] [address] [place] [address] Glucose Ql (U) 2+ Abnormal NEGATIVE [facility] Comment on above: Performed By: #### U AMR #### [facility] [address] [place] [address] [employer] Operator - Patricia YEPEZ [id number] Performed for [facility] [address] [place], [place] [address] Hemoglobin Ql (U) 3+ Abnormal NEGATIVE [facility] Comment on above: Performed By: #### U AMR #### [facility] [address] [place], [place] [address] [employer] Operator - Patricia YEPEZ [id number] Performed for [facility] [address] [place], [place] [address] HIPPURIC ACID ARTHUR Normal NONE SEEN [facility] Comment on above: Performed By: #### U AMR #### [facility] [address] [place] [address] [employer] Operator - Patricia YEPEZ [id number] Performed for [facility] [address] [place], [place] [address] HMICRO MANUAL MICROSCOPIC Normal [facility] Comment on above: Performed By: #### U AMR #### [facility] [address] [place] [address] [employer] Operator - Patricia YEPEZ [id number] Performed for [facility] [address] [place], [place] [address] Hyaline casts (Urine sed) [#/Area] Normal 0-8 [facility] Comment on above: Performed By: #### U AMR #### [facility] [address] [place], [place] [address] [employer] Operator - Patricia YEPEZ [id number] Performed for [facility] [address] [place], [place] [address] KETONE Trace Abnormal NEGATIVE [facility] Comment on above: Performed By: #### U AMR #### [facility] [address] [place], [place] [address] [employer] Operator - Patricia YEPEZ [id number] Performed for [facility] [address] [place], [place] [address] LEUCINE CRYSTALS Normal NONE SEEN [facility] Comment on above: Performed By: #### U AMR #### [facility] [address] [place], [place] [address] [employer] Operator - Patricia YEPEZ [id number] Performed for [facility] [address] [place], [place] [address] Leukocyte esterase Test strip Ql (U) Trace Normal TRACE [facility] Comment on above: Performed By: #### U AMR #### [facility] [address] [place], [place] [address] [employer] Operator - Patricia YEPEZ [id number] Performed for [facility] [address] [place], [place] [address] MONOSODIUM URATES Normal NONE SEEN [facility] Comment on above: Performed By: #### U AMR #### [facility] [address] [place], [place] [address] [employer] Operator - Patricia SÁNCHEZIA [id number] Performed for [facility] [address] [place], [place] [address] MUCOUS SMALL Abnormal TRACE [facility] Comment on above: Performed By: #### U AMR #### [facility] [address] [place], [place] [address] [employer] Operator - Patricia SÁNCHEZIA [id number] Performed for [facility] [address] [place], [place] [address] Nitrite Ql (U) Negative Normal NEGATIVE [facility] Comment on above: Performed By: #### U AMR #### [facility] [address] [place], [place] [address] [employer] Operator - Patricia SÁNCHEZIA [id number] Performed for [facility] [address] [place], [place] [address] pH (U) 6.0 [pH] Normal 5.5-7.5 [facility] Comment on above: Performed By: #### U AMR #### [facility] [address] [place], [place] [address] [employer] Operator - Patricia SÁNCHEZIA [id number] Performed for [facility] [address] [place], [place] [address] Protein Ql (U) Trace Abnormal NEGATIVE [facility] Comment on above: Performed By: #### U AMR #### [facility] [address] [place], [place] [address] [employer] Operator - Patricia SÁNCHEZIA [id number] Performed for [facility] [address] [place], [place] [address] RBC casts LM.LPF (Urine sed) [#/Area] Normal NONE SEEN [facility] Comment on above: Performed By: #### U AMR #### [facility] [address] [place], [place] [address] [employer] Operator - Patricia YEPEZ [id number] Performed for [facility] [address] [place], [place] [address] RBC LM.HPF (Urine sed) [#/Area] /[HPF] Abnormal 0-4 [facility] Comment on above: Performed By: #### U AMR #### [facility] [address] [place], [place] [address] [employer] Operator - Patricia YEPEZ [id number] Performed for [facility] [address] [place], [place] [address] Specific gravity (U) [Rel density] 1.025 Normal 1.010-1.03 5 [facility] Comment on above: Performed By: #### U AMR #### [facility] [address] [place] [address] [employer] Machine Operator - Patricia YEPEZ [id number] Performed for [facility] [address] [place], [place] [address] SPERM Normal [facility] Comment on above: Performed By: #### U AMR #### [facility] [address] [place], [place] [address] [employer] Operator - Patricia YEPEZ [id number] Performed for [facility] [address] [place], [place] [address] SQUAMOUS EPITHELIALS >15 Abnormal 0-5 [facility] Comment on above: Performed By: #### U AMR #### [facility] [address] [place], [place] [address] [employer] Operator - Patricia YEPEZ [id number] Performed for [facility] [address] [place], [place] [address] STARCH CRYSTALS Normal NONE SEEN [facility] Comment on above: Performed By: #### U AMR #### [facility] [address] [place] [address] [employer] Machine Operator - Patricia YEPEZ [id number] Performed for [facility] [address] [place], [place] [address] SULFONAMIDES Normal NONE SEEN [facility] Comment on above: Performed By: #### U AMR #### [facility] [address] [place], [place] [address] [employer] Operator - Patricia YEPEZ [id number] Performed for [facility] [address] [place], [place] [address] Transitional cells LM.LPF (Urine sed) [#/Area] Normal NONE SEEN [facility] Comment on above: Performed By: #### U AMR #### [facility] [address] [place], [place] [address] [employer] Operator - Patricia SÁCNHEZIA [id number] Performed for [facility] [address] [place], [place] [address] TRICHOMONAS Normal NONE SEEN [facility] Comment on above: Performed By: #### U AMR #### [facility] [address] [place], [place] [address] [employer] Machine Operator - Patricia SÁNCHEZIA [id number] Performed for [facility] [address] [place], [place] [address] TRIPLE PHOSPHATES Normal NONE SEEN [facility] Comment on above: Performed By: #### U AMR #### [facility] [address] [place], [place] [address] [employer] Machine Operator - Patricia SÁNCHEZIA [id number] Performed for [facility] [address] [place], [place] [address] TYROSINE CRYSTALS Normal NONE SEEN [facility] Comment on above: Performed By: #### U AMR #### [facility] [address] [place], [place] [address] [employer] Operator - Patricia YEPEZ [id number] Performed for [facility] [address] [place], [place] [address] URIC ACID CRYSTALS Normal NONE SEEN [facility] Comment on above: Performed By: #### U AMR #### [facility] [address] [place], [place] [address] [employer] Operator - Patricia SÁNCHEZIA [id number] Performed for [facility] [address] [place], [place] [address] Urobilinogen Qn (U) Normal <=1.0 [facility] Comment on above: Result Comment: 2.0 E.U./dL Performed By: #### U AMR #### [facility] [address] [place], [place] [address] [employer] Operator - Patricia YEPEZ [id number] Performed for [facility] [address] [place], [place] [address] Waxy casts LM Ql (Urine sed) Normal NONE SEEN [facility] Comment on above: Performed By: #### U AMR #### [facility] [address] [place] [address] [employer] Machine Operator - Patricia YEPEZ [id number] Performed for [facility] [address] [place], [place] [address] WBC casts LM.LPF (Urine sed) [#/Area] Normal NONE SEEN [facility] Comment on above: Performed By: #### U AMR #### [facility] [address] [place], [place] [address] [employer] Machine Operator - PatriciaPSE&G Children's Specialized HospitalANN [id number] Performed for [facility] [address] [place], [place] [address] WBC LM.HPF (Urine sed) [#/Area] 6-10 Abnormal 0-5 [facility] Comment on above: Performed By: #### U AMR #### [facility] [address] [place], [place] [address] [employer] Machine Operator - Patricia YEPEZ [id number] Performed for [facility] [address] [place], [place] [address] YEAST BUDDING Normal NONE SEEN [facility] Comment on above: Performed By: #### U AMR #### [facility] [address] [place], [place] [address] [employer] [facility] [id number] Performed for [facility] [address] [place], [place] [address] YEAST PSEUDOHYPHAE Normal NONE SEEN [facility] Comment on above: Performed By: #### U AMR #### [facility] [address] [place] [address] [employer] Operator - Patricia YEPEZ [id number] Performed for [facility] [address] [place] [address] pH (BldV)on 11-05-2020 Base excess standard Calc (BldV) [Moles/Vol] 1 mmol/L Normal -2-3 [facility] Comment on above: Performed By: #### 1 2286-1 #### [facility] [address] [place] [address] [employer] Operator - Patricia YEPEZ [id number] Carboxyhemoglobin (BldA) [Mass fraction] 0.6 % Normal [facility] Comment on above: Performed By: #### 1 2286-1 #### [address] [place] [address] [employer] Operator - Patricia YEPEZ [id number] CO2 (BldV) [Partial pressure] 39.5 mm/Hg Low 41.0-51.0 [facility] Comment on above: Performed By: #### 1 2286-1 #### [place] [address] [place] [address] [employer] Operator - Patricia YEPEZ [id number] DEOXYHEMOGLOBIN 2 % Normal [facility] Comment on above: Performed By: #### 1 2286-1 #### [address] [place] [address] [employer] Operator - Patricia YEPEZ [id number] HCARBOXY NON-SMOKERS 0.0-1.5% SMOKERS 1.5-5.0% Normal [facility] Comment on above: Performed By: #### 1 2286-1 #### [address] [place] [address] [employer] Operator - Patricia YEPEZ [id number] HCO3 (Bld) [Moles/Vol] 25.2 mmol/L Normal 23.0-28.0 [facility] Comment on above: Performed By: #### 1 2286-1 #### [address] [place] [address] [employer] Operator - Patricia YEPEZ [id number] HEADING CO-OXIMETRY CO-OXIMETRY Normal [facility] Comment on above: Performed By: #### 1 2286-1 #### [facility] [address] [place] [address] [employer] Operator - Patricia YEPEZ [id number] Methemoglobin (BldA) [Mass fraction] 0.3 % Normal 0.0-1.5 [facility] Comment on above: Performed By: #### 1 2286-1 #### [facility] [address] [place] [address] [employer] Operator - Patricia YEPEZ [id number] Oxyhemoglobin (BldV) [Mass fraction] 97 % High 40-70 [facility] Comment on above: Performed By: #### 1 2286-1 #### [place] [address] [facility]. [place] [address] [employer] Operator - Patricia YEPEZ [id number] pH (Bld) 7.422 [pH] High 7.310-7.41 0 [facility] Comment on above: Performed By: #### 1 2286-1 #### [facility] [address] [place] [address] [employer] Operator - Patricia YEPEZ [id number] pO2 103 mm/Hg High 30-50 [facility] Comment on above: Performed By: #### 1 2286-1 #### [facility] [address] [place] [address] [employer] Operator - Patricia YEPEZ [id number] sO2 98 % Normal 75-100 [facility] Comment on above: Performed By: #### 1 2286-1 #### [facility] [address] [place], [place] [address] [place] [address] [employer] Operator - Patricia YEPEZ [id number] CULTURE URINEon 10-25-2020 Bacteria identified Cx Nom (U) COLONY COUNT = ZERO COLONY FORMING UNITS, ML ISOL NO GROWTH OBSERVED AFTER 1 DAY NO GROWTH OBSERVED AFTER 2 DAYS Normal [facility] Comment on above: Performed By: #### G LUM #### [facility] [address] [place] [address] [employer] Operator - Patricia YEPEZ [id number] CT ABDOMEN AND PELVIS WITHOU T CONTRASTon 10-24-2020 CT ABDOMEN AND PELVIS WITHOUT CONTRAST EXAMINATION: CT ABDOMEN AND PELVIS WITHOUT CONTRAST HISTORY: Right flank pain COMPARISON: CT of the abdomen and pelvis from 10/16/2020. TECHNIQUE: CT examination of the abdomen and pelvis without IV contrast. Coronal and sagittal reformations were performed. Oral contrast was not given. Dose reduction techniques were achieved by using automated exposure control and/or adjustment of mA and/or kV according to patient size and/or use of iterative reconstruction technique. REPORT: Lung bases show slight atelectasis and chronic changes. The visualized heart shows no gross enlargement or pericardial effusion. Gastroesophageal junction and abdominal and pelvic vasculature are unremarkable. Patient is status post cholecystectomy. The liver shows no abnormal densities or ductal dilatations. There is mild food debris and mild to moderate fluid in the stomach without wall thickening or acute inflammation. The spleen, pancreas, duodenum and adrenal glands are unremarkable. The kidneys show no sign of hydronephrosis. There is a small calculus in the mid to inferior aspect of the left kidney measuring 2.1 mm. There are multiple small calculi noted of the right kidney with the largest measuring 4.7 mm. The right and left ureters show no inflammation or dilatation or stone. The bladder appears to show mild increased density in urine which may represent blood or proteinaceous urine from dehydration. The inguinal and ischiorectal regions are unremarkable. The anus and rectum are unremarkable. Calcified phleboliths are noted pelvis. The uterus has been removed. The vaginal cuff and adnexal regions are unremarkable The large and small bowels are unremarkable. The mesentery and ileocecal junction are unremarkable. The appendix is difficult to visualize but no inflammation is noted by the cecum. There is no free air, free fluid, loculated fluid, mass or lymphadenopathy. The anterior abdominal wall shows no defects. Subcutaneous tissues are unremarkable. Bone density is unremarkable. No bony lesions or advanced iterative changes are noted. IMPRESSION: 1. Bilateral nephrolithiasis without evidence for hydronephrosis or ureteral stone. 2. Increased density of your in the bladder which may represent blood or proteinaceous urine from dehydration. 3. Additional chronic and postsurgical changes noted. Normal [facility] CBC W Auto Differential pane l (Bld)on 10-23-2020 Basophils (Bld) [#/Vol] 0.03 10*3/uL Normal <=0.70 [facility] Comment on above: Performed By: #### G LUM #### [address] [place] [address] [employer] Operator - Patricia Bertrand CLIA [id number] Basophils/100 WBC (Bld) 0.6 % Normal <=2.0 [facility] Comment on above: Performed By: #### G LUM #### [place] [address] [employer] Operator - Patricia Bertrand CLIA [id number] Eosinophils (Bld) [#/Vol] 0.06 10*3/uL Normal <=0.70 [facility] Comment on above: Performed By: #### G LUM #### [place] [address] [employer] Operator - Patricia Bertrand CLIA [id number] Eosinophils/100 WBC (Bld) 1.2 % Normal <=10.0 [facility] Comment on above: Performed By: #### G LUM #### [place] [address] [employer] Operator - Patricia Bertrand CLIA [id number] Erythrocyte distribution width (RBC) [Entitic vol] 37.4 fL Normal 36.4-46.3 [facility] Comment on above: Performed By: #### G LUM #### [place] [address] [employer] Operator - Patricia Bertrand CLIA [id number] Hematocrit (Bld) [Volume fraction] 40.7 % Normal 37.0-47.0 [facility] Comment on above: Performed By: #### G LUM #### [place] [address] [employer] Operator - Patricia Bertrand CLIA [id number] Hemoglobin (Bld) [Mass/Vol] 13.7 g/dL Normal 12.0-16.0 [facility] Comment on above: Performed By: #### G LUM #### [facility] [address] [place] [address] [employer] Operator - Patricia Bertrand CLIA [id number] Immature granulocytes (Bld) [#/Vol] 0.01 10*3/uL Normal <=0.10 [facility] Comment on above: Performed By: #### G LUM #### [facility] [address] [place] [address] [employer] Operator - Patricia Bertrand CLIA [id number] Immature granulocytes/100 WBC (Bld) 0.20 % Normal <=1.50 [facility] Comment on above: Performed By: #### G LUM #### [place] [address] [place] [address] [employer] Operator - Patricia SÁNCHEZIA [id number] Lymphocytes (Bld) [#/Vol] 1.73 10*3/uL Normal 1.20-3.40 [facility] Comment on above: Performed By: #### G LUM #### [place] [address] [place] [address] [employer] Operator - Patricia SÁNCHEZIA [id number] Lymphocytes/100 WBC (Bld) 33.6 % Normal 20.0-40.0 [facility] Comment on above: Performed By: #### G LUM #### [place] [address] [place] [address] [employer] Operator - Patricia Bertrand CLIA [id number] MCH (RBC) [Entitic mass] 27.7 pg Normal 27.0-31.0 [facility] Comment on above: Performed By: #### G LUM #### [place] [address] [place] [address] [employer] Operator - Patricia Bertrand CLIA [id number] MCHC (RBC) [Mass/Vol] 33.7 g/dL Normal 32.0-36.0 [facility] Comment on above: Performed By: #### G LUM #### [place] [address] [place] [address] [employer] Operator - Patricia SÁNCHEZIA [id number] MCV (RBC) [Entitic vol] 82.2 fL Normal 80.0-100.0 [facility] Comment on above: Performed By: #### G LUM #### [place] [address] [employer] Operator - Patricia Cochranrell CLIA [id number] Monocytes (Bld) [#/Vol] 0.48 10*3/uL Normal 0.10-0.60 [facility] Comment on above: Performed By: #### G LUM #### [place] [address] [employer] Operator [facility] CLIA [id number] Monocytes/100 WBC (Bld) 9.3 % High <=8.0 [facility] Comment on above: Performed By: #### G LUM #### [place] [address] [employer] Operator - Patricia Bertrand CLIA [id number] Neutrophils (Bld) [#/Vol] 2.84 10*3/uL Normal 1.40-6.50 [facility] Comment on above: Performed By: #### G LUM #### [address] Director - Patriciakvng Bertrand CLIA [id number] Neutrophils/100 WBC (Bld) 55.1 % Normal 50.0-70.0 [facility] Comment on above: Performed By: #### G LUM #### [place] [address] [employer] [facility] CLIA [id number] Nucleated RBC (Bld) [#/Vol] 0.00 10*3/uL Normal <=0.10 [facility] Comment on above: Performed By: #### G LUM #### [place] [address] [employer] Operator - Patricia Bertrand CLIA [id number] Platelet mean volume (Bld) [Entitic vol] 10.0 fL Normal 9.0-13.0 [facility] Comment on above: Performed By: #### G LUM #### [facility] [address] [place] [address] [employer] Operator - Patricia SÁNCHEZIA [id number] Platelets (Bld) [#/Vol] 212 10*3/uL Normal 130-400 [facility] Comment on above: Performed By: #### G LUM #### [facility] [address] [place] [address] [employer] Operator - Patricia SÁNCHEZIA [id number] RBC (Bld) [#/Vol] 4.95 10*6/uL Normal 4.00-6.30 [facility] Comment on above: Performed By: #### G LUM #### [place] [address] [place] [address] [employer] Operator - Patricia Bertrand CLIA [id number] WBC (Bld) [#/Vol] 5.15 10*3/uL Normal 4.80-10.80 [facility] Comment on above: Performed By: #### G LUM #### [place] [address] [place] [address] [employer] Operator - Patricia SÁNCHEZIA [id number] Comprehensive metabolic 2000 panelon 10-23-2020 Albumin [Mass/Vol] 3.8 g/dL Normal 3.4-5.0 [facility] Comment on above: Performed By: #### 3 040-3, 23374-8 #### [facility] [address] [place] [address] [employer] Operator - [facility] CLIA [id number] ALP [Catalytic activity/Vol] 68 U/L Normal 50-136 [facility] Comment on above: Performed By: #### 3 040-3, 74176-7 #### [facility] [address] [place] [address] [employer] Operator [facility] PRINCESSIA [id number] ALT [Catalytic activity/Vol] 23 U/L Normal 14-59 [facility] Comment on above: Performed By: #### 3 040-3, 13492-3 #### [facility] [address] [place] [address] [employer] Operator - Patricia SÁNCHEZIA [id number] Anion gap [Moles/Vol] 9.0 mmol/L Normal <=15.0 [facility] Comment on above: Performed By: #### 3 040-3, 43037-7 #### [facility] [address] [place] [address] [employer] Operator - Patricia SÁNCHEZIA [id number] AST [Catalytic activity/Vol] 11 U/L Low 15-37 [facility] Comment on above: Performed By: #### 3 040-3, #### [facility] [address] [place] [address] [employer] Operator - Patricia SÁNCHEZIA [id number] Bilirubin [Mass/Vol] 0.4 mg/dL Normal 0.2-1.0 [facility] Comment on above: Performed By: #### 3 -3, #### [place] [address] [place] [address] [employer] Operator - Patricia SÁNCHEZIA [id number] Calcium [Mass/Vol] 9.4 mg/dL Normal 8.5-10.1 [facility] Comment on above: Performed By: #### 3 -3, #### [facility] [address] [place] [address] [employer] Operator - Patricia SÁNCHEZIA [id number] Chloride [Moles/Vol] 104 mmol/L Normal 98-107 [facility] Comment on above: Performed By: #### 3 -3, 85508-5 #### [facility] [address] [place] [address] [employer] Operator - Patricia Bertrand CLIA [id number] CO2 [Moles/Vol] 27 mmol/L Normal 21-32 [facility] Comment on above: Performed By: #### 3 -3, 80419-6 #### [facility] [address] [place] [address] [employer] Operator - Patricia Bertrand CLIA [id number] Creatinine [Mass/Vol] 0.54 mg/dL Normal 0.51-0.95 [facility] Comment on above: Performed By: #### 3 -3, 73115-9 #### [facility] [address] [place] [address] [employer] Operator - Patricia YEPEZ [id number] GFR/1.73 sq M.predicted MDRD (S/P/Bld) [Vol rate/Area] mL/min/{1.73_m2} Normal >=59 [facility] Comment on above: Performed By: #### 3 -3, #### [facility] [address] [place] [address] [employer] Operator - Patricia YEPEZ [id number] Glucose [Mass/Vol] 283 mg/dL High 74-106 [facility] Comment on above: Performed By: #### 3 -3, #### [facility] [address] [address] [place] [address] [employer] Operator - Patricia YEPEZ [id number] HGFR GLOMERULAR FILTRATIO N RATE INTERPRETATION~The eGFR is calculated using the MDRD equation.~This equation has been validated in patients with chronic kidney disease;~however, it underestimates the GFR in healthy patients with GFR's over 60 mL/min.~The equation is not valid in children under the age of 18.~NOTE: Criteria for Chronic Kidney Disease:~ ~1. Kidney damage for at least three months, as defined~by structural or functional abnormalities of the kidney,~with or without decreased glomerular filtration rate, manifested by either:~* Pathological abnormalities or~* Markers of Kidney damage, including abnormalities in~the composition of the blood or urine or abnormalities in imaging tests.~ ~2. GFR <60 mL/min/1.73 m squared for at least three months, with or without kidney damage.~ Normal [facility] Comment on above: Performed By: #### 3 -3, 45339-1 #### [facility] [address] [place] [address] [employer] Operator - Patricia YEPEZ [id number] Potassium [Moles/Vol] 3.7 mmol/L Normal 3.5-5.1 [facility] Comment on above: Performed By: #### 3 040-3, 63689-7 #### [facility] [address] [place] [address] [employer] Operator - Patricia SÁNCHEZIA [id number] Protein [Mass/Vol] 7.3 g/dL Normal 6.4-8.2 [facility] Comment on above: Performed By: #### 3 040-3, 26351-6 #### [facility] [address] [place] [address] [employer] Operator - Patricia SÁNCHEZIA [id number] Sodium [Moles/Vol] 140 mmol/L Normal 136-145 [facility] Comment on above: Performed By: #### 3 040-3, 56194-6 #### [place] [address] [place] [address] [employer] Operator - Patricia YEPEZ [id number] Urea nitrogen [Mass/Vol] 11 mg/dL Normal 7-17 [facility] Comment on above: Performed By: #### 3 040-3, 13056-9 #### [facility] [address] [place] [address] [employer] Operator - Patricia YEPEZ [id number] Drugs identified Screen Nom (U)on 10-23-2020 Amphetamines Ql (U) Not detected Normal CUTOFF = 500 [facility] Comment on above: Performed By: #### 1 2286-1 #### [facility] [address] [place] [address] [employer] Operator - Patricia YEPEZ [id number] Barbiturates Ql (U) Not detected Normal CUTOFF = 200 [facility] Comment on above: Performed By: #### 1 2286-1 #### [facility] [address] [place] [address] [employer] Operator - Patricia SÁNCHEZIA [id number] Benzodiazepines Ql (U) Not detected Normal CUTOF F = 150 [facility] Comment on above: Performed By: #### 1 2286-1 #### [facility] [address] [place] [address] [employer] Operator - Patricia SÁNCHEZIA [id number] Cocaine Ql (U) Not detected Normal CUTOFF = 150 [facility] Comment on above: Performed By: #### 1 2286-1 #### [facility] [address] [place] [address] [employer] Operator - Patricia YEPEZ [id number] [facility] abuse alecia lance provides only a preliminary analytical test result. A more specific alternate chemical method must be used in order to obtain a confimed analytical result. Clinical consideration and professional judgment should be applied to any drug of abuse test result, particularly when preliminary positive results are obtained. Normal [facility] Comment on above: Performed By: #### 1 2286-1 #### [facility] [address] [place] [address] [employer] Operator - Patricia YEPEZ [id number] Methadone Ql (U) Not detected Normal CUTOFF = 200 [facility] Comment on above: Performed By: #### 1 2286-1 #### [facility] [address] [place] [address] [employer] Operator - Patricia YEPEZ [id number] Opiates Ql (U) Not detected Normal CUTOFF = 300 [facility] Comment on above: Performed By: #### 1 2286-1 #### [facility] [address] [place] [address] [employer] Operator - Patricia SÁNCHEZIA [id number] oxyCODONE Ql (U) Not detected Normal CUTOFF = 100 [facility] Comment on above: Performed By: #### 1 2286-1 #### [facility] [address] [place] [address] [employer] Operator - Patricia SÁNCHEZIA [id number] Phencyclidine Ql (U) Not detected Normal CUTOFF = 25 [facility] Comment on above: Performed By: #### 1 2286-1 #### [facility] [address] [place] [address] [employer] Operator - Patricia SÁNCHEZIA [id number] Tetrahydrocannabinol Ql (U) Not detected Normal CUTOFF = 50 [facility] Comment on above: Performed By: #### 1 2286-1 #### [facility] [address] [place] [address] [employer] Operator - [facility] Springs[facility] [id number] LIPASEon 10-23-2020 Lipase [Catalytic activity/Vol] 168 U/L Normal 73-393 [facility] Comment on above: Performed By: #### 3 040-3, 51279-9 #### [facility] [address] [place] [address] [employer] Operator - [facility] [id number] URINALYSIS with reflex to CU LTUREon 10-23-2020 Bacteria LM.HPF (Urine sed) [#/Area] Negative Normal TRACE [facility] Comment on above: Performed By: #### G LUM #### [place] [address] [place] [address] [employer] Operator - [facility] SpringsIA [id number] Bilirubin Ql (U) Negative Normal NEGATIVE [facility] Comment on above: Performed By: #### G LUM #### [place] [address] [place] [address] [employer] Operator - [facility] SpringsIA [id number] CALCIUM OXALATES MODERATE Abnormal FEW [facility] Comment on above: Performed By: #### G LUM #### [place] [address] [place] [address] [employer] Operator - [facility] CLIA [id number] Clarity (U) CLOUDY Abnormal CLEAR [facility] Comment on above: Performed By: #### G LUM #### [facility] [address] [place] [address] [employer] Operator - [facility] CLIA [id number] Color (U) Linda Abnormal YELLOW [facility] Comment on above: Performed By: #### G LUM #### [facility] [address] [place] [address] [employer] Operator - [facility] Springs[facility] [id number] Glucose Ql (U) 4+ Abnormal NEGATIVE [facility] Comment on above: Performed By: #### G LUM #### [facility] [address] [place] [address] [employer] Operator - [place] [id number] Hemoglobin Ql (U) 3+ Abnormal NEGATIVE [facility] Comment on above: Performed By: #### G LUM #### [facility] [address] [place] [address] [employer] Operator - [place] [id number] HMICRO AUTOMATED MICROSCOPIC Normal [facility] Comment on above: Performed By: #### G LUM #### [facility] [address] [place] [address] [employer] Production Machine Operator - [place] [id number] Hyaline casts (Urine sed) [#/Area] 10-20 Abnormal 0-8 [facility] Comment on above: Performed By: #### G LUM #### [address] [place] [address] [employer] Production Machine Operator - [place] [id number] KETONE TRACE Abnormal NEGATIVE [facility] Comment on above: Performed By: #### G LUM #### [facility] [address] [place] [address]. [place] [address] [employer] Production Machine Operator - [place] [phone] Leukocyte esterase Test strip Ql (U) 2+ Abnormal TRACE [facility] Comment on above: Performed By: #### G LUM #### [facility] [address] [facility]. [place] [address] [employer] Production Machine Operator - [place] [id number] MUCOUS TRACE Normal TRACE [facility] Comment on above: Performed By: #### G LUM #### [facility] [address] [place] [address] Glass Production Machine Operator - [place] [phone] Nitrite Ql (U) Negative Normal NEGATIVE [facility] Comment on above: Performed By: #### G LUM #### [facility] [address] [place] [address] Glass Production Machine Operator - [place] [id number] pH (U) 6.0 [pH] Normal 5.5-7.5 [facility] Comment on above: Performed By: #### G LUM #### [address] [place] [address] [employer] Production Machine Operator - [place] SÁNCHEZIA [id number] Protein Ql (U) 1+ Abnormal NEGATIVE [facility] Comment on above: Performed By: #### G LUM #### [address] [place] [address] Glass Production Machine Operator - [place] SÁNCHEZIA [id number] RBC LM.HPF (Urine sed) [#/Area] /[HPF] Abnormal 0-4 [facility] Comment on above: Performed By: #### G LUM #### [place] [address] [employer] Production Machine Operator - Patricia SÁNCHEZIA [id number] Specific gravity (U) [Rel density] 1.041 High 1.010-1.03 5 [facility] Comment on above: Performed By: #### G LUM #### [place] [address] [employer] Machine Operator - [place] SÁNCHEZIA [id number] SQUAMOUS EPITHELIALS 10-15 Abnormal 0-5 [facility] Comment on above: Performed By: #### G LUM #### [place] [address] [employer] Production Machine Operator - Patricia SÁNCHEZIA [id number] Transitional cells LM.LPF (Urine sed) [#/Area] 0-5 Abnormal NONE SEEN [facility] Comment on above: Performed By: #### G LUM #### [address] [place] [address] Glass Production Machine Operator - [place] SÁNCHEZIA [id number] Urobilinogen Qn (U) 1.0 {Diaz'U}/dL Normal <=1.0 [facility] Comment on above: Performed By: #### G LUM #### [address] [place] [address] [employer] Production Machine Operator - Patricia Bertrand CLIA [id number] WBC LM.HPF (Urine sed) [#/Area] 100-900 Abnormal 0-5 [facility] Comment on above: Performed By: #### G LUM #### [facility] [address] [place], [place] [address] [employer] Production Machine Operator - Patricia YEPEZ [id number] Basic metabolic 1998 panelOr dered By: Vesna Patrick on 10-18-2020 Anion gap [Moles/Vol] 15 mmol/L 10 - 2 0 mmol/L [facility] Chloride [Moles/Vol] 103 mmol/L 98 - 10 8 mmol/L [facility] Creatinine [Mass/Vol] 0.81 mg/dL 0.40 - 1.10 [place] GFR/1.73 sq M.predicted CKD-EPI (S/P/Bld) [Vol rate/Area] 88 >=60 mL/min/1.7 3 m2 [place] Glucose [Mass/Vol] 286 mg/dL High 65 - 99 mg/dL [place] HCO3 [Moles/Vol] 25 mmol/L 21 - 32 mmol/L [place] Interpretation and review of laboratory results Abnormal [place] Potassium [Moles/Vol] 3.5 mmol/L 3.5 - 5.1 mmol/L [place] Sodium [Moles/Vol] 139 mmol/L 135 - 145 mmol/L [place] Urea nitrogen [Mass/Vol] 12 mg/dL 8 - 25 mg/dL [place] Urea nitrogen/Creatinine [Mass ratio] 14.8 mg/mg [place] The eGFR should be u sed for monitoring renal function only and not for medication dosing. [place] CBC WITH AUTO DIFFERENTIALOr dered By: Vesna Patrick on 10-18-2020 Basophils (Bld) [#/Vol] 0.03 10*3/uL [place] Basophils/100 WBC (Bld) 0.6 % [place] Eosinophils (Bld) [#/Vol] 0.11 10*3/uL [place] Eosinophils/100 WBC (Bld) 2.0 % [place] Erythrocyte distribution width (RBC) [Entitic vol] 12.7 % 11.6 - 14.8 % [place] Hematocrit (Bld) [Volume fraction] 38.0 % 36.0 - 46.0 % [place] Hemoglobin (Bld) [Mass/Vol] 12.5 g/dL 12.0 - 16.0 g/dL [place] Immature granulocytes (Bld) [#/Vol] 0.01 10*3/uL [place] Immature granulocytes/100 WBC (Bld) 0.20 % [place] Comment on above: The IG parameter is the percentage of metamyelocytes, myelocytes and promyelocytes. An immature granulocyte count (IG) of 1% or more suggests the possibility of infection, an IG count of 3% is very likely related to an infection. Lymphocytes (Bld) [#/Vol] 1.80 10*3/uL [place] Lymphocytes/100 WBC (Bld) 33.2 % [place] MCH (RBC) [Entitic mass] 27.7 pg 26.0 - 34.0 pg [place] MCHC (RBC) [Mass/Vol] 32.9 g/dL 31.0 - 37.0 g/dL [place] MCV (RBC) [Entitic vol] 84.1 fL 80.0 - 100.0 fL [place] Monocytes (Bld) [#/Vol] 0.50 10*3/uL [place] Monocytes/100 WBC (Bld) 9.2 % [place] Neutrophils (Bld) [#/Vol] 2.97 10*3/uL [place] Neutrophils/100 WBC (Bld) 54.8 % [place] Nucleated RBC (Bld) [#/Vol] 0.00 10*3/uL [place] Nucleated RBC/100 WBC (Bld) [Ratio] 0.0 % [place] Platelet mean volume (Bld) [Entitic vol] 10.1 fL 9.4 - 12.4 fL [place] Platelets (Bld) [#/Vol] 194 10*3/uL [place] RBC (Bld) [#/Vol] 4.52 10*6/uL [facility] WBC (Bld) [#/Vol] 5.42 10*3/uL [facility] e[facility] COVID-19/Influenza A,B Molec ularOrdered By: Vesna Patrick on 10-18-2020 SARS-CoV-2 (COVID-19) RNA JENNIFER+probe Ql (Resp) Not detected Not Detected [place] D-DIMER, QUANTITATIVEOrdered By: Vesna Patrick on 10-18-2020 Fibrin D-dimer FEU (PPP) [Mass/Vol] 1.01 High 0.27 - 0.49 mcg/mL FEU [place] Interpretation and review of laboratory results Abnormal [place] A D-dimer concentrat ion of <0.5 micrograms per milliliter FEU is considered a low probability for pulmonary embolus (PE) and deep venous thrombosis (DVT). Results of this test should always be interpreted in conjunction with the patient's medical history,clinical presentation, and other findings. Clinical diagnosis should not be based on the results of the D-dimer alone. [place] DRUGS OF ABUSE SCREEN, URINE Ordered By: Vesna Patrick on 10-18-2020 Amphetamines Ql (U) Not detected None Detected [place] Comment on above: Urine Amphetamine Cu toff: < 1000 ng/mL = None Detected Barbiturates Screen Ql (U) Not detected None Detected [place] Comment on above: Urine Barbiturates C utoff: < 200 ng/mL = None Detected Benzodiazepines Ql (U) Not detected None Detected [place] Comment on above: Urine Benzodiazepine Cutoff: < 200 ng/mL = None Detected Cannabinoids Screen Ql (U) Not detected None Detected [place] Comment on above: Urine Cannabinoids C utoff: < 50 ng/mL = None Detected Cocaine Ql (U) Not detected None Detected [place] Comment on above: Urine Cocaine Cutoff : < 300 ng/mL = None Detected Interpretation and review of laboratory results Normal [place] Methadone Screen Ql (U) Not detected None Detected [place] Comment on above: Urine Methadone Cuto ff: < 300 ng/mL = None Detected Opiates Screen Ql (U) Not detected None Detected [place] Comment on above: Urine Opiates Cutoff : < 300 ng/mL = None Detected oxyCODONE Ql (U) Not detected None Detected [place] Comment on above: Urine Oxycodone Cuto ff: < 100 ng/mL = None Detected Screen results shoul d be used for treatment purposes only. [place] ECG 12-LEADOrdered By: Vesna Patrick on 10-18-2020 Atrial Rate 114 BPM [place] P Purchase 64 degrees [place] P-R Interval 120 ms [place] Q-T Interval 338 ms [place] QRS Duration 90 ms [place] QTC Calculation (Bezet) 465 ms [place] R Purchase 12 degrees [place] T Purchase 52 degrees [place] Ventricular Rate 114 BPM [facility] th Sinus tachycardia Otherwise normal ECG ECG Cart Interpretation see physician note for interpretation. Confirmed by Doni Mahan ([id number]) on 10/18/2020 7:21:51 PM [place] Hepatic function 2000 panelO rdered By: Vesna Patrick on 10-18-2020 Albumin [Mass/Vol] 3.6 g/dL 3.2 - 5.2 g/dL [place] ALP [Catalytic activity/Vol] 76 U/L 40 - 150 U/L [place] ALT [Catalytic activity/Vol] 24 U/L 14 - 65 U/L [place] AST [Catalytic activity/Vol] 12 U/L 0 - 45 U/L [place] Bilirubin [Mass/Vol] 0.4 mg/dL 0.0 - 1 .3 mg/dL [place] Bilirubin.conjugated [Mass/Vol] mg/dL 0.0 - 0.4 mg/dL [place] Protein [Mass/Vol] 7.1 g/dL 6.0 - 8.0 g/dL [place] INR Coag (PPP) [Relative debbie e]Ordered By: Vesna Patrick on 10-18-2020 Interpretation and review of laboratory results Normal [place] PT Coag (PPP) [Time] 12.5 s [facility] During the induction phase of oral anticoagulation, the INR may not reflect the anticoagulation status of the patient. Therapeutic ranges for INR's are: Most clinical situations: INR 2.0-3.0 Mechanical Prosthetic Valve: INR 2.5-3.5 Critical: INR >5.0 [place] LipaseOrdered By: Vesna Garzon lod on 10-18-2020 Lipase [Catalytic activity/Vol] 132 U/L 73 - 393 U/L [place] No Panel InformationOrdered By: Triage Emergency on 10-18-2020 Extra Tube Hold for add-ons. [facility] Comment on above: Auto resulted. No Panel InformationOrdered By: Vesna Patrick on 10-18-2020 Interpretation and review of laboratory results Normal [place] PT/INROrdered By: Vesna frost on 10-18-2020 INR Coag (PPP) [Relative time] 1.0 {INR} [place] SARS-CoV-2 (COVID-19) RNA NA A+probe Ql (Resp)Ordered By: Vesna Patrick on 10-18-2020 Influenza A Not detected Not Detected [place] Influenza B Not detected Not Detected [place] Interpretation and review of laboratory results Normal [place] This test was perfor med under the FDA's Emergency Use Authorization (EUA). Testing was performed using the Mariah Kristen SARS-CoV-2 RT-PCR & Influenza A/B Nucleic Acid Test on the [employer] System. This test has not been approved for use in asymptomatic patients and its performance in this patient population has not been evaluated. Negative results do not rule out the presence of SARS-CoV-2, influenza A, and/or influenza B. Fact sheets for the EUA can be found at the following links: For Healthcare Providers: https://www.fda.gov/media /261668/download For Patients: https://www.fda.gov/media /016714/download [place] TROPONINOrdered By: Vesna rivera on 10-18-2020 Troponin I Interpretation Normal [place] Troponin I.cardiac [Mass/Vol] ng/mL <=45 ng/L [place] XR CHEST AP/PA AND LATOrdere d By: Vesna Patrick on 10-18-2020 Lungs are clear. No acute cardiopulmonary disease. Workstation ID: [id number] [place] EXAMINATION: XR CHES T AP/PA AND LAT HISTORY: ORDERING SYSTEM PROVIDED HISTORY: Chest pain, TECHNOLOGIST PROVIDED HISTORY: Illness/Other Reason for exam: chest pain Cancer History: NA Surgery, RadiationHistory: NA Encounter Type: Initial Additional signs and symptoms: . ORDERING SYSTEM PROVIDED DIAGNOSIS CODES: COMPARISON: 10/16/2020. FINDINGS: The lungs are clear of airspace consolidation. There is no appreciable pneumothorax or pleural effusion. The pulmonary vascularity is within normal limits for technique. The cardiomediastinal silhouette is within normal limits. [place] Interface, Rad In Fu ji Speechq - 10/18/2020 9:07 PM EDT EXAMINATION: XR CHEST AP/PA AND LAT HISTORY: ORDERING SYSTEM PROVIDED HISTORY: Chest pain, TECHNOLOGIST PROVIDED HISTORY: Illness/Other Reason for exam: chest pain Cancer History: NA Surgery, RadiationHistory: NA Encounter Type: Initial Additional signs and symptoms: . ORDERING SYSTEM PROVIDED DIAGNOSIS CODES: COMPARISON: 10/16/2020. FINDINGS: The lungs are clear of airspace consolidation. There is no appreciable pneumothorax or pleural effusion. The pulmonary vascularity is within normal limits for technique. The cardiomediastinal silhouette is within normal limits. IMPRESSION: Lungs are clear. No acute cardiopulmonary disease. Workstation ID: [id number] [place] Basic metabolic 2000 panelOr dered By: Esmer Tamayo on 10-16-2020 Anion gap [Moles/Vol] 12 mmol/L 10 - 2 0 mmol/L [place] Calcium [Mass/Vol] 9.4 mg/dL 8.4 - 10. 2 mg/dL [place] Chloride [Moles/Vol] 106 mmol/L 98 - 10 8 mmol/L [place] Creatinine [Mass/Vol] 0.99 mg/dL 0.40 - 1.10 [place] GFR/1.73 sq M.predicted CKD-EPI (S/P/Bld) [Vol rate/Area] 69 >=60 mL/min/1.7 3 m2 [place] Glucose [Mass/Vol] 334 mg/dL High 65 - 99 mg/dL [place] HCO3 [Moles/Vol] 25 mmol/L 21 - 32 mmol/L [place] Potassium [Moles/Vol] 3.6 mmol/L 3.5 - 5.1 mmol/L [place] Sodium [Moles/Vol] 139 mmol/L 135 - 145 mmol/L [place] Urea nitrogen [Mass/Vol] 12 mg/dL 8 - 25 mg/dL [place] Urea nitrogen/Creatinine [Mass ratio] 12.1 mg/mg [place] The eGFR should be u sed for monitoring renal function only and not for medication dosing. [place] Beta HCG ( test) Ql Ordered By: Esmer Tamayo on 10-16-2020 Negative: The result is less than or equal to 5 mIU/mL of HCG. [place] Beta-HydroxybutyrateOrdered By: Esmer Tamayo on 10-16-2020 Beta hydroxybutyrate [Moles/Vol] 0.1 mmol/L 0.0 - 0.3 mmol/L [place] CBC WITH AUTO DIFFERENTIALOr dered By: Esmer Tamayo on 10-16-2020 Basophils (Bld) [#/Vol] 0.04 10*3/uL [place] Basophils/100 WBC (Bld) 0.8 % [place] Eosinophils (Bld) [#/Vol] 0.08 10*3/uL [place] Eosinophils/100 WBC (Bld) 1.6 % [place] Erythrocyte distribution width (RBC) [Entitic vol] 12.8 % 11.6 - 14.8 % [place] Hematocrit (Bld) [Volume fraction] 40.6 % 36.0 - 46.0 % [place] Hemoglobin (Bld) [Mass/Vol] 13.5 g/dL 12.0 - 16.0 g/dL [place] Immature granulocytes (Bld) [#/Vol] 0.01 10*3/uL [place] Immature granulocytes/100 WBC (Bld) 0.20 % [place] Comment on above: The IG parameter is the percentage of metamyelocytes, myelocytes and promyelocytes. An immature granulocyte count (IG) of 1% or more suggests the possibility of infection, an IG count of 3% is very likely related to an infection. Lymphocytes (Bld) [#/Vol] 1.66 10*3/uL [place] Lymphocytes/100 WBC (Bld) 32.2 % [place] MCH (RBC) [Entitic mass] 27.7 pg 26.0 - 34.0 pg [place] MCHC (RBC) [Mass/Vol] 33.3 g/dL 31.0 - 37.0 g/dL [place] MCV (RBC) [Entitic vol] 83.4 fL 80.0 - 100.0 fL [place] Monocytes (Bld) [#/Vol] 0.45 10*3/uL [place] Monocytes/100 WBC (Bld) 8.7 % [place] Neutrophils (Bld) [#/Vol] 2.92 10*3/uL [place] Neutrophils/100 WBC (Bld) 56.5 % [place] Nucleated RBC (Bld) [#/Vol] 0.00 10*3/uL [place] Nucleated RBC/100 WBC (Bld) [Ratio] 0.0 % [place] Platelet mean volume (Bld) [Entitic vol] 9.7 fL 9.4 - 12.4 fL [place] Platelets (Bld) [#/Vol] 222 10*3/uL [place] RBC (Bld) [#/Vol] 4.87 10*6/uL [facility] WBC (Bld) [#/Vol] 5.16 10*3/uL [facility] CT Abdomen Pelvis With IV Co ntrast OnlyOrdered By: Esmer Tamayo on 10-16-[address] scan of the abdomen and pelvis. 2. Bilateral nephrolithiasis without hydronephrosis or ureteral stone. No inflammation is noted the kidneys, ureters or bladder. 3. Mild fatty changes of the liver. The gallbladder has been removed. Workstation ID: [id number] [place] EXAMINATION: CT ABDO MEN PELVIS WITH IV CONTRAST ONLY HISTORY: ORDERING SYSTEM PROVIDED HISTORY: Abdominal pain, acute, nonlocalized, TECHNOLOGIST PROVIDED HISTORY: Illness/Other Reason for exam: adb pain Encounter Type: Initial Additional signs and symptoms: dizziness ORDERING SYSTEM PROVIDED DIAGNOSIS CODES: COMPARISON: CT abdomen pelvis from 10/11/2020. TECHNIQUE: CT examination of the abdomen and pelvis following the administration of intravenous contrast. Coronal and sagittal reformations were performed. Dose reduction techniques were achieved by using automated exposure control and/or adjustment of mA and/or kV according to patient size and/or use of iterative reconstruction technique. CONTRAST: IOPAMIDOL 76 % INTRAVENOUS SOLUTION - 75 mL, FINDINGS: The lung bases are clear except for mild atelectasis dependently. The visualized heart shows no gross enlargement or pericardial effusion. The gastroesophageal junction is unremarkable. The abdominal and pelvic vasculature is unremarkable. There is wall thickening of the stomach which may represent peristaltic activity. No sign of severe inflammation is noted. The duodenum, pancreas, adrenal glands and spleen show no acute or gross process. There is slight intra and extrahepatic ductal dilatation of the liver, patient status post cholecystectomy. Slight to mild fatty changes are noted of the liver. The kidneys show no abnormal enhancement. 2 calculi are noted of the right kidney the larger measuring 6.2 mm. Questionable punctate calculus is noted on the left kidney. No inflammation or abnormal enhancement or hydronephrosis is noted. The right and left ureters and bladder show no stones or irregularity. The bladder was not well distended. The inguinal and ischiorectal regions are unremarkable. The anus and rectum are unremarkable. The uterus has been removed. Vaginal cuff and adnexal areas are unremarkable. Calcified phleboliths are noted in the pelvis. The large and small bowels and mesentery are unremarkable. The ileocecal junction and appendix are unremarkable. There is no free air, free fluid, loculated fluid, mass or obvious lymphadenopathy. No anterior abdominal wall hernia is noted. The subcutaneous tissues are unremarkable. Bone density is unremarkable. No bony lesions or advanced degenerative changes are noted. [place] Interface, Rad In Fu ji Speechq - 10/16/2020 11:05 PM EDT EXAMINATION: CT ABDOMEN PELVIS WITH IV CONTRAST ONLY HISTORY: ORDERING SYSTEM PROVIDED HISTORY: Abdominal pain, acute, nonlocalized, TECHNOLOGIST PROVIDED HISTORY: Illness/Other Reason for exam: adb pain Encounter Type: Initial Additional signs and symptoms: dizziness ORDERING SYSTEM PROVIDED DIAGNOSIS CODES: COMPARISON: CT abdomen pelvis from 10/11/2020. TECHNIQUE: CT examination of the abdomen and pelvis following the administration of intravenous contrast. Coronal and sagittal reformations were performed. Dose reduction techniques were achieved by using automated exposure control and/or adjustment of mA and/or kV according to patient size and/or use of iterative reconstruction technique. CONTRAST: IOPAMIDOL 76 % INTRAVENOUS SOLUTION - 75 mL, FINDINGS: The lung bases are clear except for mild atelectasis dependently. The visualized heart shows no gross enlargement or pericardial effusion. The gastroesophageal junction is unremarkable. The abdominal and pelvic vasculature is unremarkable. There is wall thickening of the stomach which may represent peristaltic activity. No sign of severe inflammation is noted. The duodenum, pancreas, adrenal glands and spleen show no acute or gross process. There is slight intra and extrahepatic ductal dilatation of the liver, patient status post cholecystectomy. Slight to mild fatty changes are noted of the liver. The kidneys show no abnormal enhancement. 2 calculi are noted of the right kidney the larger measuring 6.2 mm. Questionable punctate calculus is noted on the left kidney. No inflammation or abnormal enhancement or hydronephrosis is noted. The right and left ureters and bladder show no stones or irregularity. The bladder was not well distended. The inguinal and ischiorectal regions are unremarkable. The anus and rectum are unremarkable. The uterus has been removed. Vaginal cuff and adnexal areas are unremarkable. Calcified phleboliths are noted in the pelvis. The large and small bowels and mesentery are unremarkable. The ileocecal junction and appendix are unremarkable. There is no free air, free fluid, loculated fluid, mass or obvious lymphadenopathy. No anterior abdominal wall hernia is noted. The subcutaneous tissues are unremarkable. Bone density is unremarkable. No bony lesions or advanced degenerative changes are noted. IMPRESSION: 1. Nonacute CT scan of the abdomen and pelvis. 2. Bilateral nephrolithiasis without hydronephrosis or ureteral stone. No inflammation is noted the kidneys, ureters or bladder. 3. Mild fatty changes of the liver. The gallbladder has been removed. Workstation ID: [id number] [place] CT HEAD OR BRAIN WITHOUT CON TRASTOrdered By: Esmer Clutter on 10-16-2020 Negative for acute intracranial hemorrhage or acute intracranial process. Workstation ID: [id number] [place] EXAMINATION: CT HEAD OR BRAIN WITHOUT CONTRAST HISTORY: ORDERING SYSTEM PROVIDED HISTORY: Headache, acute, normal neuro exam, TECHNOLOGIST PROVIDED HISTORY: Illness/Other Reason for exam: dizziness and syncope xtoday Encounter Type: Initial Additional signs and symptoms: n/a ORDERING SYSTEM PROVIDED DIAGNOSIS CODES: COMPARISON: None. TECHNIQUE: Axial CT images were acquired from the skull base to the vertex without contrast. Dose reduction techniques were achieved by using automated exposure control and/or adjustment of mA and/or kV according to patient size and/or use of iterative reconstruction technique. FINDINGS: The ventricles and sulci are within normal limits in size and configuration for age. There is no evidence for acute intracranial hemorrhage. There are no foci of abnormal parenchymal attenuation. There is no mass effect or midline shift. There are no abnormal extraaxial fluid collections. [place] Jenn, Delfino In Fu ji Speechq - 10/16/2020 10:44 PM EDT EXAMINATION: CT HEAD OR BRAIN WITHOUT CONTRAST HISTORY: ORDERING SYSTEM PROVIDED HISTORY: Headache, acute, normal neuro exam, TECHNOLOGIST PROVIDED HISTORY: Illness/Other Reason for exam: dizziness and syncope xtoday Encounter Type: Initial Additional signs and symptoms: n/a ORDERING SYSTEM PROVIDED DIAGNOSIS CODES: COMPARISON: None. TECHNIQUE: Axial CT images were acquired from the skull base to the vertex without contrast. Dose reduction techniques were achieved by using automated exposure control and/or adjustment of mA and/or kV according to patient size and/or use of iterative reconstruction technique. FINDINGS: The ventricles and sulci are within normal limits in size and configuration for age. There is no evidence for acute intracranial hemorrhage. There are no foci of abnormal parenchymal attenuation. There is no mass effect or midline shift. There are no abnormal extraaxial fluid collections. IMPRESSION: Negative for acute intracranial hemorrhage or acute intracranial process. Workstation ID: [id number] [place] ECG 12-LEADOrdered By: Lynnette Beth on 10-16-2020 Atrial Rate 126 BPM [place] P Purchase 52 degrees [place] P-R Interval 148 ms [place] Q-T Interval 312 ms [place] QRS Duration 88 ms [place] QTC Calculation (Bezet) 451 ms [place] R Purchase -3 degrees [place] T Purchase 50 degrees [place] Ventricular Rate 126 BPM [facility] th Sinus tachycardia Possible Left atrial enlargement Borderline ECG ECG Cart Interpretation see physician note for interpretation. Confirmed by Alyse Zhang ([id number]) on 10/16/2020 10:04:37 PM [place] Gold TopOrdered By: Lynnette carter on 10-16-2020 Extra Tube Hold for add-ons. [facility] Comment on above: Auto resulted. HCG (QUALITATIVE)Ordered By: Esmer Tamayo on 10-16-2020 Beta HCG ( test) Ql Negative Negative [place] Hepatic function 2000 panelO rdered By: Esmer Tamayo on 10-16-2020 Albumin [Mass/Vol] 4.1 g/dL 3.2 - 5.2 g/dL [place] ALP [Catalytic activity/Vol] 86 U/L 40 - 150 U/L [place] ALT [Catalytic activity/Vol] 26 U/L 14 - 65 U/L [place] AST [Catalytic activity/Vol] 11 U/L 0 - 45 U/L [place] Bilirubin [Mass/Vol] 0.4 mg/dL 0.0 - 1 .3 mg/dL [place] Bilirubin.conjugated [Mass/Vol] 0.1 mg/dL 0.0 - 0.4 mg/dL [place] Protein [Mass/Vol] 8.0 g/dL 6.0 - 8.0 g/dL [place] INR Coag (PPP) [Relative debbie e]Ordered By: Esmer Tamayo on 10-16-2020 Interpretation and review of laboratory results Normal [place] PT Coag (PPP) [Time] 11.8 s [facility] During the induction phase of oral anticoagulation, the INR may not reflect the anticoagulation status of the patient. Therapeutic ranges for INR's are: Most clinical situations: INR 2.0-3.0 Mechanical Prosthetic Valve: INR 2.5-3.5 Critical: INR >5.0 [place] Lactate [Moles/Vol]Ordered B y: Esmer Tamayo on 10-16-2020 Interpretation and review of laboratory results Abnormal [place] Lactic Acid, PlasmaOrdered B y: Esmer Tamayo on 10-16-2020 Lactate [Moles/Vol] 3.1 mmol/L High 0.6 - 2. 0 mmol/L [place] LipaseOrdered By: Esmer manzanares on 10-16-2020 Lipase [Catalytic activity/Vol] 215 U/L 73 - 393 U/L [place] NT Pro BNPOrdered By: Esmer padron on 10-16-2020 Natriuretic peptide.B prohormone N-Terminal [Mass/Vol] 17 pg/mL 0 - 300 pg/mL [place] Natriuretic peptide.B prohor leaina N-Terminal [Mass/Vol]Ordered By: Esmer Tamayo on 10-16-2020 Pride Study Cut-offs Rule In: < /= 50 Years >450 pg/mL 51 Years - 75 Years >900 pg/mL 76 Years - 99 Years >1800 pg/mL Rule Out: All patients <300 pg/mL [place] No Panel InformationOrdered By: Esmer Tamayo on 10-16-2020 Interpretation and review of laboratory results Abnormal [place] Interpretation and review of laboratory results Normal [place] PT/INROrdered By: Esmer Gray er on 10-16-2020 INR Coag (PPP) [Relative time] 0.9 {INR} [place] TROPONINOrdered By: Esmer Loving tter on 10-16-2020 Interp Troponin I Delta Change No biomarker evidence of cardiac injury. [place] Troponin I.cardiac [Mass/Vol] ng/mL <=45 ng/L [place] Troponin I Interpretation Normal [place] Troponin I.cardiac [Mass/Vol] ng/mL <=45 ng/L [place] URINALYSISOrdered By: Esmer padron on 10-16-2020 Bacteria Auto Ql (U) None Seen None Se en /hpf [place] Clarity Refractometry automated (U) Clear Clear [place] Color (U) Colorless Colorless, Yellow [place] Glucose Auto test strip (U) [Mass/Vol] >=500 Abnormal Negative mg/dL [place] Ketones (U) [Mass/Vol] Trace Abnormal Negat isabella mg/dL [place] Leukocyte esterase Auto test strip Ql (U) Negative Negative [facility] h pH (U) 5.5 [pH] [place] Specific gravity (U) [Rel density] 1.044 High [place] UrinalysisOrdered By: Esmer padron on 10-16-2020 Bilirubin Ql (U) Negative Negative [facility] Epithelial cells.squamous Auto (Urine sed) [#/Area] <1 [place] Hemoglobin Auto test strip Ql (U) Small Abnormal Negative [place] Mucus Auto (Urine sed) [#/Area] Rare None Seen, Rare /lpf [place] Nitrite Auto test strip Ql (U) Negative Negative [place] Protein (U) [Mass/Vol] Negative Negat isabella mg/dL [place] RBC Auto (Urine sed) [#/Area] 17 High [place] Urobilinogen (U) [Mass/Vol] mg/dL <2.0 mg/dL [place] WBC Auto (Urine sed) [#/Area] 1 [place] Microscopic examinat ion is performed on all urinalysis samples and only positive findings are reported. The test for blood on the chemical analytic portion of urinalysis may also be positive due to hemoglobinuria and myoglobinuria and if red blood cells are present they are quantified by microscopic examination. [place] XR Chest 1 ViewOrdered By: Jered Tamayo on 10-16-2020 Minimal left basilar atelectasis without focal airspace consolidation. Workstation ID: [id number] [place] EXAMINATION: XR CHES T PA/AP 10/16/2020 7:55 pm HISTORY: ORDERING SYSTEM PROVIDED HISTORY: Chest Pain, TECHNOLOGIST PROVIDED HISTORY: Illness/Other Reason for exam: chest pain, dizziness Cancer History: NA Surgery, RadiationHistory: NA Encounter Type: Initial Additional signs and symptoms: syncope, hyperglycemia ORDERING SYSTEM PROVIDED DIAGNOSIS CODES: COMPARISON: Chest radiograph 07/08/2020. FINDINGS: AP upright portable view of the chest. Minimal left basilar atelectasis. No focal airspace consolidation. No pleural effusion or pneumothorax. Normal cardiomediastinal silhouette. No pulmonary vascular congestion. No acute osseous or soft tissue abnormalities. [place] Interface, Rad In Fu ji Speechq - 10/16/2020 8:27 PM EDT EXAMINATION: XR CHEST PA/AP 10/16/2020 7:55 pm HISTORY: ORDERING SYSTEM PROVIDED HISTORY: Chest Pain, TECHNOLOGIST PROVIDED HISTORY: Illness/Other Reason for exam: chest pain, dizziness Cancer History: NA Surgery, RadiationHistory: NA Encounter Type: Initial Additional signs and symptoms: syncope, hyperglycemia ORDERING SYSTEM PROVIDED DIAGNOSIS CODES: COMPARISON: Chest radiograph 07/08/2020. FINDINGS: AP upright portable view of the chest. Minimal left basilar atelectasis. No focal airspace consolidation. No pleural effusion or pneumothorax. Normal cardiomediastinal silhouette. No pulmonary vascular congestion. No acute osseous or soft tissue abnormalities. IMPRESSION: Minimal left basilar atelectasis without focal airspace consolidation. Workstation ID: [id number] [place] CBC W Auto Differential pane l (Bld)on 10-12-2020 Basophils (Bld) [#/Vol] 0.05 10*3/uL Normal <=0.70 [facility] Comment on above: Performed By: #### G LUM #### [facility] [address] [facility] CLIA [id number] Basophils/100 WBC (Bld) 0.9 % Normal <=2.0 [facility] Comment on above: Performed By: #### G LUM #### [place] [address] [place] [address] [employer] Operator [facility] CLIA [id number] Eosinophils (Bld) [#/Vol] 0.03 10*3/uL Normal <=0.70 [facility] Comment on above: Performed By: #### G LUM #### [address] Director [facility] CLIA [id number] Eosinophils/100 WBC (Bld) 0.5 % Normal <=10.0 [facility] Comment on above: Performed By: #### G LUM #### [address] [place] [address] [employer] Operator - Patricia Bertrand CLIA [id number] Erythrocyte distribution width (RBC) [Entitic vol] 37.7 fL Normal 36.4-46.3 [facility] Comment on above: Performed By: #### G LUM #### [address] Director - Patricia Bertrand CLIA [id number] Hematocrit (Bld) [Volume fraction] 39.4 % Normal 37.0-47.0 [facility] Comment on above: Performed By: #### G LUM #### [address] Director [facility] CLIA [id number] Hemoglobin (Bld) [Mass/Vol] 13.5 g/dL Normal 12.0-16.0 [facility] Comment on above: Performed By: #### G LUM #### [address] Director - Patricia Bertrand CLIA [id number] Immature granulocytes (Bld) [#/Vol] 0.01 10*3/uL Normal <=0.10 [facility] Comment on above: Performed By: #### G LUM #### [address] [place] [address] [employer] Operator - Patricia Bertrand CLIA [id number] Immature granulocytes/100 WBC (Bld) 0.20 % Normal <=1.50 [facility] Comment on above: Performed By: #### G LUM #### [address] [place] [address] [employer] Operator - Patricia Bertrand CLIA [id number] Lymphocytes (Bld) [#/Vol] 1.85 10*3/uL Normal 1.20-3.40 [facility] Comment on above: Performed By: #### G LUM #### [place] [address] [employer] Operator - Patricia Bertrand CLIA [id number] Lymphocytes/100 WBC (Bld) 31.7 % Normal 20.0-40.0 [facility] Comment on above: Performed By: #### G LUM #### [place] [address] [employer] Operator - Patricia Bertrand CLIA [id number] MCH (RBC) [Entitic mass] 28.1 pg Normal 27.0-31.0 [facility] Comment on above: Performed By: #### G LUM #### [place] [address] [employer] Operator - Patricia Bertrand CLIA [id number] MCHC (RBC) [Mass/Vol] 34.3 g/dL Normal 32.0-36.0 [facility] Comment on above: Performed By: #### G LUM #### [address] [place] [address] [employer] Operator - Patricia Bertrand CLIA [id number] MCV (RBC) [Entitic vol] 82.1 fL Normal 80.0-100.0 [facility] Comment on above: Performed By: #### G LUM #### [place] [id number] [place] [address] [employer] Operator - Patricia Bertrand CLIA [id number] Monocytes (Bld) [#/Vol] 0.57 10*3/uL Normal 0.10-0.60 [facility] Comment on above: Performed By: #### G LUM #### [place] [address] [place] [address] [employer] Operator - Patricia Bertrand CLIA [id number] Monocytes/100 WBC (Bld) 9.8 % High <=8.0 [facility] Comment on above: Performed By: #### G LUM #### [address] [place] [address] [employer] Operator - Patricia Bertrand CLIA [id number] Neutrophils (Bld) [#/Vol] 3.33 10*3/uL Normal 1.40-6.50 [facility] Comment on above: Performed By: #### G LUM #### [place] [address] [employer] Operator - Patricia Bertrand CLIA [id number] Neutrophils/100 WBC (Bld) 56.9 % Normal 50.0-70.0 [facility] Comment on above: Performed By: #### G LUM #### [address] [place] [address] [employer] Operator - Patricia Bertrand CLIA [id number] Nucleated RBC (Bld) [#/Vol] 0.00 10*3/uL Normal <=0.10 [facility] Comment on above: Performed By: #### G LUM #### [address] [place] [address] [employer] Operator - Patricia Bertrand CLIA [id number] Platelet mean volume (Bld) [Entitic vol] 9.9 fL Normal 9.0-13.0 [facility] Comment on above: Performed By: #### G LUM #### [address] [place] [address] [employer] Operator - [facility] SpringsIA [id number] Platelets (Bld) [#/Vol] 219 10*3/uL Normal 130-400 [facility] Comment on above: Performed By: #### G LUM #### [facility] [address] [place] [address] [employer] Operator - [facility] PRINCESSIA [id number] RBC (Bld) [#/Vol] 4.80 10*6/uL Normal 4.00-6.30 [facility] Comment on above: Performed By: #### G LUM #### [facility] [address] [place] [address] [employer] Operator - [facility] SpringsIA [id number] WBC (Bld) [#/Vol] 5.84 10*3/uL Normal 4.80-10.80 [facility] Comment on above: Performed By: #### G LUM #### [address] [place] [address] [employer] Operator - [facility] SpringsIA [id number] CT ABDOMEN AND PELVIS WITHOU T CONTRASTon 10-12-2020 CT ABDOMEN AND PELVIS WITHOUT CONTRAST EXAM: CT ABDOMEN AND PELVIS WITHOUT CONTRAST REASON FOR EXAM: Female, 45 years, GENERALIZED ABDOMINAL TENDERNESS. TECHNIQUE: Computed tomography of the abdomen and pelvis is performed in the axial projection from the lung bases to the pubic symphysis. Sagittal and coronal reconstructed images are performed. Dose reduction techniques were achieved by using automated exposure control and/or adjustment of mA and/or KVP according to patient size and/or use of iterative reconstruction technique. Study was performed without IV contrast. Study was performed without oral contrast. COMPARISON: 09/08/2020 FINDINGS: Lung bases: There is faint patchy opacity at both lung bases. There is no pleural effusion. The visualized portions of the heart are unremarkable. The lack of intravenous contrast slightly limits evaluation of the solid abdominal organs. Liver: There is diffuse decreased attenuation throughout the liver consistent with steatosis. Gallbladder: The gallbladder has been removed. Spleen: The spleen is normal. Pancreas: The pancreas is normal. Adrenal glands: The adrenal glands are normal bilaterally. Right kidney: The kidney is normal in size. There are 2 small nonobstructing calculi within the right kidney, in the mid and superior poles. No hydronephrosis. No definite ureteral calculus. Left kidney: The kidney is normal in size. There is a 2 to 3 mm nonobstructing calculus in the inferior pole of the left kidney. Stomach: The stomach is normal. Small bowel: The small bowel is normal. Large bowel: There is a moderate amount of stool throughout the colon. Appendix: The appendix is visualized, and is normal. Aorta: The aorta is normal IVC: The IVC is normal. Retroperitoneum: Normal retroperitoneum. Bladder: The bladder is normal. Pelvic organs: The uterus is absent, consistent with hysterectomy. There are phleboliths seen within the gonadal veins. Abdominal wall: Normal abdominal wall. Osseous structures: There are mild degenerative changes within the spine. IMPRESSION: Bilateral nonobstructing renal calculi. No hydronephrosis. Hepatic steatosis. Patchy opacities at both lung bases. Please clinically correlate for pulmonary symptoms. Normal [facility] Comprehensive metabolic 2000 panelon 10-12-2020 Albumin [Mass/Vol] 4.0 g/dL Normal 3.4-5.0 [facility] Comment on above: Performed By: #### 3 040-3, 34947-2 #### [facility] [address] [facility] [place] [address] [employer] Operator - Patricia YEPEZ [id number] ALP [Catalytic activity/Vol] 85 U/L Normal 50-136 [facility] Comment on above: Performed By: #### 3 040-3, 70965-8 #### [facility] [address] [place] [address] [employer] Operator - Patricia YEPEZ [id number] ALT [Catalytic activity/Vol] 27 U/L Normal 14-59 [facility] Comment on above: Performed By: #### 3 040-3, 00470-1 #### [facility] [address] [place] [address] [employer] Operator - Patricia YEPEZ [id number] Anion gap [Moles/Vol] 6.0 mmol/L Normal <=15.0 [facility] Comment on above: Performed By: #### 3 040-3, 83976-5 #### [facility] [address] [place] [address] [employer] Operator - Patricia SÁNCHEZIA [id number] AST [Catalytic activity/Vol] 21 U/L Normal 15-37 [facility] Comment on above: Result Comment: Spec imen slightly hemolyzed. Test results may be affected. Performed By: #### 3 040-3, #### [facility] [address] [place] [address] [employer] Operator - Patricia SÁNCHEZIA [id number] Bilirubin [Mass/Vol] 0.5 mg/dL Normal 0.2-1.0 [facility] Comment on above: Performed By: #### 3 040-3, 28847-5 #### [facility] [address] [place] [address] [employer] Operator - Patricia SÁNCHEZIA [id number] Calcium [Mass/Vol] 9.9 mg/dL Normal 8.5-10.1 [facility] Comment on above: Performed By: #### 3 040-3, 83199-5 #### [facility] [address] [place] [address] [employer] Operator - Patricia SÁNCHEZIA [id number] Chloride [Moles/Vol] 102 mmol/L Normal 98-107 [facility] Comment on above: Performed By: #### 3 040-3, #### [facility] [address] [place] [address] [employer] Operator - Patricia Bertrand CLIA [id number] CO2 [Moles/Vol] 30 mmol/L Normal 21-32 [facility] Comment on above: Performed By: #### 3 040-3, 06293-2 #### [facility] [address] [place] [address] [employer] Operator - Patricia SÁNCHEZIA [id number] Creatinine [Mass/Vol] 0.62 mg/dL Normal 0.51-0.95 [facility] Comment on above: Performed By: #### 3 040-3, 39435-0 #### [facility] [address] [place] [address] [employer] Operator [facility] [id number] GFR/1.73 sq M.predicted MDRD (S/P/Bld) [Vol rate/Area] mL/min/{1.73_m2} Normal >=59 [facility] Comment on above: Performed By: #### 3 -3, #### [facility] [address] [place] [address] [employer] Operator - [facility] LUCHO [id number] Glucose [Mass/Vol] 383 mg/dL High 74-106 [facility] Comment on above: Performed By: #### 3 -3, 08286-0 #### [facility] [address] [place] [address] [employer] Operator - [facility] SpringsANN [id number] HGFR GLOMERULAR FILTRATIO N RATE INTERPRETATION~The eGFR is calculated using the MDRD equation.~This equation has been validated in patients with chronic kidney disease;~however, it underestimates the GFR in healthy patients with GFR's over 60 mL/min.~The equation is not valid in children under the age of 18.~NOTE: Criteria for Chronic Kidney Disease:~ ~1. Kidney damage for at least three months, as defined~by structural or functional abnormalities of the kidney,~with or without decreased glomerular filtration rate, manifested by either:~* Pathological abnormalities or~* Markers of Kidney damage, including abnormalities in~the composition of the blood or urine or abnormalities in imaging tests.~ ~2. GFR <60 mL/min/1.73 m squared for at least three months, with or without kidney damage.~ Normal [facility] Comment on above: Performed By: #### 3 -3, #### [facility] [address] [place] [address] [employer] Operator - [facility] LUCHO [id number] Potassium [Moles/Vol] 3.9 mmol/L Normal 3.5-5.1 [facility] Comment on above: Result Comment: Spec imen slightly hemolyzed. Test results may be affected. Performed By: #### 3 -3, 36032-2 #### [facility] [address] [place] [address] [employer] Operator - Patricia SÁNCHEZIA [id number] Protein [Mass/Vol] 7.9 g/dL Normal 6.4-8.2 [facility] Comment on above: Performed By: #### 3 040-3, 60706-7 #### [facility] [address] [place] [address] [employer] Operator - Patricia SÁNCHEZIA [id number] Sodium [Moles/Vol] 138 mmol/L Normal 136-145 [facility] Comment on above: Performed By: #### 3 040-3, 56994-8 #### [facility] [address] [place] [address] [employer] Operator - Patricia YEPEZ [id number] Urea nitrogen [Mass/Vol] 12 mg/dL Normal 7-17 [facility] Comment on above: Performed By: #### 3 040-3, 14055-6 #### [facility] [address] [place] [address] [employer] Operator - Patricia SÁNCHEZIA [id number] LIPASEon 10-12-2020 Lipase [Catalytic activity/Vol] 190 U/L Normal 73-393 [facility] Comment on above: Performed By: #### 3 040-3, 13705-5 #### [facility] [address] [place] [address] [employer] Operator - Patricia YEPEZ [id number] URINALYSIS with reflex to CU LTUREon 10-12-2020 Bacteria LM.HPF (Urine sed) [#/Area] Negative Normal TRACE [facility] Comment on above: Performed By: #### G LUM #### [facility] [address] [place] [address] [employer] Operator - Patricia SÁNCHEZIA [id number] Bilirubin Ql (U) Negative Normal NEGATIVE [facility] Comment on above: Performed By: #### G LUM #### [facility] [address] [place] [address] [employer] Operator - Patricia SÁNCHEZIA [id number] Clarity (U) CLOUDY Abnormal CLEAR [facility] Comment on above: Performed By: #### G LUM #### [facility] [address] [place] [address] [employer] Operator - [place] [id number] Color (U) ORANGE Abnormal YELLOW [facility] Comment on above: Performed By: #### G LUM #### [facility] [address] [place] [address] [employer] Operator - [place] [id number] Glucose Ql (U) 4+ Abnormal NEGATIVE [facility] Comment on above: Performed By: #### G LUM #### [facility] [address] [place] [address] [employer] Operator - [place] [id number] Hemoglobin Ql (U) 3+ Abnormal NEGATIVE [facility] Comment on above: Performed By: #### G LUM #### [facility] [address] [place] [address]. [place] [address] [employer] Operator - [place] [id number] HMICRO AUTOMATED MICROSCOPIC Normal [facility] Comment on above: Performed By: #### G LUM #### [facility] [address] [place], [place] [address] [address] [employer] Operator - [id number] Hyaline casts (Urine sed) [#/Area] 0-8 Normal 0-8 [facility] Comment on above: Performed By: #### G LUM #### [facility] [address] [place] [address] [employer] Operator - [place] [id number] KETONE 3+ Abnormal NEGATIVE [facility] Comment on above: Performed By: #### G LUM #### [facility] [address] [place] [address] [employer] Operator - [place] [id number] Leukocyte esterase Test strip Ql (U) 1+ Abnormal TRACE [facility] Comment on above: Performed By: #### G LUM #### [facility] [address] [place] [address] [employer] Operator - [place] [id number] Nitrite Ql (U) Negative Normal NEGATIVE [facility] Comment on above: Performed By: #### G LUM #### [address] [place] [address] [employer] Operator - Patricia SÁNCHEZIA [id number] pH (U) 6.0 [pH] Normal 5.5-7.5 [facility] Comment on above: Performed By: #### G LUM #### [place] [address] [employer] Operator - Patricia Bertrand CLIA [id number] Protein Ql (U) Negative Normal NEGATIVE [facility] Comment on above: Performed By: #### G LUM #### [place] [address] [employer] Operator - Patricia SÁNCHEZIA [id number] RBC LM.HPF (Urine sed) [#/Area] TNTC Abnormal 0-4 [facility] Comment on above: Performed By: #### G LUM #### [place] [address] [employer] Operator - Patricia SÁNCHEZIA [id number] Specific gravity (U) [Rel density] 1.046 High 1.010-1.03 5 [facility] Comment on above: Performed By: #### G LUM #### [place] [address] [employer] Operator - Patricia SÁNCHEZIA [id number] SQUAMOUS EPITHELIALS 6-10 Abnormal 0-5 [facility] Comment on above: Performed By: #### G LUM #### [place] [address] [employer] Operator - Patricia Bertrand CLIA [id number] Urobilinogen Qn (U) 1.0 {Diaz'U}/dL Normal <=1.0 [facility] [facility] Comment on above: Performed By: #### G LUM #### [place] [address] [employer] - Patricia Bertrand CLIA [id number] WBC LM.HPF (Urine sed) [#/Area] 50-100 Abnormal 0-5 [facility] Comment on above: Performed By: #### G LUM #### [facility] [address] [place], [place] [address] [employer] - Patricia YEPEZ [id number] CBCon 10-01-2020 Erythrocyte distribution width (RBC) [Ratio] 13.4 % 11.5 - 14.5 % L2 Phone: Hematocrit (Bld) [Volume fraction] 41.8 % 37.0 - 47.0 % L2 Phone: Hemoglobin (Bld) [Mass/Vol] 14.1 g/dL 12.0 - 16.0 g/dL L2 Phone: MCH (RBC) [Entitic mass] 27.9 pg 27.0 - 31.3 pg L2 Phone: MCHC (RBC) [Mass/Vol] 33.8 % 33.0 - 37.0 % L2 Phone: MCV (RBC) [Entitic vol] 82.6 fL 82.0 - 100.0 fL L2 Phone: Platelets (Bld) [#/Vol] 246 10*3/uL 130 - 400 K/uL L2 Phone: RBC (Bld) [#/Vol] 5.06 10*6/uL L2 Phone: WBC (Bld) [#/Vol] 8.3 10*3/uL 4.8 - 10.8 K/uL L2 Phone: Comprehensive Metabolic Pane l w/ Reflex to MGon 10-01-2020 Albumin [Mass/Vol] 4.9 g/dL High 3.5 - 4.6 g/dL L2 Phone: ALP [Catalytic activity/Vol] 93 U/L 40 - 130 U/L L2 Phone: ALT [Catalytic activity/Vol] 13 U/L 0 - 33 U/L [facility] [employer] Work Phone: Anion gap [Moles/Vol] 10 mmol/L [facility] [employer] Work Phone: AST [Catalytic activity/Vol] 14 U/L 0 - 35 U/L [facility] [employer] Work Phone: Bilirubin Ql (U) 0.5 mg/dL 0.2 - 0.7 mg/dL [facility] [employer] Work Phone: Calcium [Mass/Vol] 10.7 mg/dL High 8.5 - 9.9 mg/dL [facility] [employer] Work Phone: Chloride [Moles/Vol] 98 mmol/L [facility] [employer] Work Phone: CO2 [Moles/Vol] 28 mmol/L [facility] Work Phone: Creatinine [Mass/Vol] 0.64 mg/dL 0.50 - 0.90 mg/dL [facility] [employer] Work Phone: GFR >60.0 >60 [employer] Work Phone: Comment on above: >60 mL/min/1.73m2 EG FR, calc. for ages 18 and older using the MDRD formula (not corrected for weight), is valid for stable renal function. GFR Non- >60.0 >60 [facility] [employer] Work Phone: Comment on above: >60 mL/min/1.73m2 EG FR, calc. for ages 18 and older using the MDRD formula (not corrected for weight), is valid for stable renal function. Globulin (S) [Mass/Vol] 3.2 g/dL 2.3 - 3.5 g/dL [facility] Work Phone: Glucose [Mass/Vol] 189 mg/dL High 70 - 99 mg/dL [facility] [employer] Phone: Interpretation and review of laboratory results Abnormal [facility] Work Phone: Potassium [Moles/Vol] 3.3 mmol/L Low [facility] [employer] Work Phone: Protein [Mass/Vol] 8.1 g/dL High 6.3 - 8.0 g/dL [facility] [employer] Work Phone: Sodium [Moles/Vol] 136 mmol/L [facility] [employer] Work Phone: Urea nitrogen [Mass/Vol] 11 mg/dL 6 - 20 mg/dL [facility] [employer] Work Phone: Lipaseon 10-01-2020 Lipase [Catalytic activity/Vol] 32 U/L 12 - 95 U/L [facility] [employer] Work Phone: Magnesiumon 10-01-2020 Magnesium [Mass/Vol] 2.0 mg/dL 1.7 - 2 .4 mg/dL [facility] [employer] Phone: Microscopic Urinalysison Bacteria, UA RARE Abnormal Negative /HPF [facility] [employer] Work Phone: Epithelial Cells, UA 10-20 [facility] [employer] Work Phone: Hyaline Casts, UA 10-20 [facility] ealt Work Phone: Interpretation and review of laboratory results Abnormal [facility] [employer] Work Phone: RBC (U) [#/Vol] /uL High [facility] Work Phone: WBC, UA 50-100 Abnormal [facility] [employer] Work Phone: POCT Glucoseon 10-01-2020 Glucose [Mass/Vol] 183 mg/dL High 60 - 115 mg/dl [facility] [employer] Work Phone: Interpretation and review of laboratory results Abnormal [facility] [employer] Work Phone: Performed on ACCU-CHEK [facility] [employer] Work Phone: Glucose [Mass/Vol] 183 mg/dL [facility] [employer] Work Phone: Interpretation and review of laboratory results Normal [facility] Work Phone: Urinalysison 10-01-2020 Bilirubin Urine Negative Negative [facility] Work Phone: Blood, Urine LARGE Abnormal Negative [facility] [employer] Work Phone: Clarity, UA CLOUDY Abnormal Clear [facility] [employer] Work Phone: Color, UA ORANGE Abnormal Straw/Clay ow [facility] Work Phone: Glucose, Ur >=1000 Abnormal Negative mg/dL [facility] [employer] Work Phone: Interpretation and review of laboratory results Abnormal [facility] Work Phone: Ketones Ql (U) 15 mg/dL Abnormal Negative [facility] Work Phone: Leukocyte esterase Test strip Ql (U) TRACE Abnormal Negative [facility] [employer] Work Phone: Nitrite, Urine Negative Negative [facility] Work Phone: pH, UA 5.0 [facility] [employer] Work Phone: Protein (U) [Mass/Vol] 30 mg/dL Abnormal Negative [facility] [employer] Work Phone: Specific [place], UA 1.049 [facility] [employer] Work Phone: Urobilinogen, Urine 0.2 <2.0 E.U./dL [facility] Phone: Comprehensive Metabolic Pane ben 09-27-2020 Albumin [Mass/Vol] 4.5 g/dL 3.5 - 4.6 g/dL [facility] [employer] Phone: ALP [Catalytic activity/Vol] 81 U/L 40 - 130 U/L [facility] Work Phone: ALT [Catalytic activity/Vol] 17 U/L 0 - 33 U/L [facility] Phone: Comment on above: Specimen hemolysis h as exceeded the interference as defined by Mariah. Result may be affected. Suggest recollection if clinically indicated. Anion gap [Moles/Vol] 13 mmol/L [facility] [employer] Work Phone: AST [Catalytic activity/Vol] 26 U/L 0 - 35 U/L [facility] [employer] Phone: Comment on above: Specimen hemolysis h as exceeded the interference as defined by Mariah. Value may be falsely increased. Suggest recollection if clinically indicated. Bilirubin Ql (U) 0.4 mg/dL 0.2 - 0.7 mg/dL [facility] Work Phone: Calcium [Mass/Vol] 10.6 mg/dL High 8.5 - 9.9 mg/dL [facility] Phone: Chloride [Moles/Vol] 97 mmol/L [facility] [employer] Phone: CO2 [Moles/Vol] 25 mmol/L [facility] Work Phone: Creatinine [Mass/Vol] 0.61 mg/dL 0.50 - 0.90 mg/dL [facility] Work Phone: GFR >60.0 >60 [employer] Phone: Comment on above: >60 mL/min/1.73m2 EG FR, calc. for ages 18 and older using the MDRD formula (not corrected for weight), is valid for stable renal function. GFR Non- >60.0 >60 [facility] Phone: Comment on above: >60 mL/min/1.73m2 EG FR, calc. for ages 18 and older using the MDRD formula (not corrected for weight), is valid for stable renal function. Globulin (S) [Mass/Vol] 3.3 g/dL 2.3 - 3.5 g/dL [facility] Work Phone: Glucose [Mass/Vol] 339 mg/dL High 70 - 99 mg/dL [facility] Phone: Interpretation and review of laboratory results Abnormal [facility] Phone: Potassium [Moles/Vol] 4.5 mmol/L [facility] [employer] Work Phone: Comment on above: Specimen hemolysis h as exceeded the interference as defined by Mariah. Value may be falsely increased. Suggest recollection if clinically indicated. Protein [Mass/Vol] 7.8 g/dL 6.3 - 8.0 g/dL [facility] [employer] Phone: Sodium [Moles/Vol] 135 mmol/L [facility] [employer] Phone: Urea nitrogen [Mass/Vol] 15 mg/dL 6 - 20 mg/dL [facility] [employer] Phone: Lactic Acid, Plasmaon 2020 Lactate [Moles/Vol] 1.7 mmol/L 0.5 - 2. 2 mmol/L [facility] [employer] Phone: Lipaseon 09-27-2020 Lipase [Catalytic activity/Vol] 42 U/L 12 - 95 U/L [facility] [employer] Phone: Microscopic Urinalysison Bacteria, UA Negative Negative /HPF [facility] [employer] Phone: Epithelial Cells, UA 3-5 [facility] Work Phone: Hyaline Casts, UA 1-3 [facility] Work Phone: RBC (U) [#/Vol] /uL High [facility] Work Phone: WBC, UA 10-20 Abnormal [facility] Phone: Otheron 09-27-2020 Interpretation and review of laboratory results Abnormal [facility] Phone: POCT Venouson 09-27-2020 Creatinine [Mass/Vol] 0.5 mg/dL Low 0.6 - 1.1 mg/dL [facility] Phone: GFR >60 >60 [facility] [employer] Work Phone: Comment on above: >60 mL/min/1.73m2 EG FR, calc. for ages 18 and older using the MDRD formula (not corrected for weight), is valid for stable renal function. GFR Non- >60 >60 L2 Phone: Comment on above: >60 mL/min/1.73m2 EG FR, calc. for ages 18 and older using the MDRD formula (not corrected for weight), is valid for stable renal function. Interpretation and review of laboratory results Abnormal L2 Phone: Performed on SEE BELOW L2 Phone: Comment on above: Performed on POC Sample Type JUSTICE L2 Phone: Urine Reflex to Cultureon Bilirubin Urine Negative Negative [employer] [facility] Work Phone: Blood, Urine LARGE Abnormal Negative L2 Phone: Clarity, UA Clear Clear L2 Phone: Color, UA ORANGE Abnormal Straw/Clay ow L2 Phone: Glucose, Ur >=1000 Abnormal Negative mg/dL L2 Phone: Ketones Ql (U) 15 mg/dL Abnormal Negative [employer] Work Phone: Leukocyte esterase Test strip Ql (U) Negative Negative L2 Phone: Nitrite, Urine Negative Negative [employer] Work Phone: pH, UA 5.0 L2 Phone: Protein (U) [Mass/Vol] TRACE Abnormal Negat isabella mg/dL L2 Phone: Specific [place], UA 1.046 [employer] Phone: Urine Reflex to Culture Yes L2 Phone: Urobilinogen, Urine 1.0 <2.0 E.U./dL L2 Phone: POCT Creatinineon 09-26-2020 Creatinine [Mass/Vol] 0.5 mg/dL [facility] Work Phone: Interpretation and review of laboratory results Normal [facility] [employer] Work Phone: HCG QUALITATIVE, URINEon HCG ( test) Ql (U) Negative NEGATIVE [facility] Otheron 09-20-2020 Interpretation and review of laboratory results Abnormal [facility] URINALYSIS, MACROon 09-21-19 21 Bilirubin Ql (U) Negative NEGATIVE [facility] Clarity (U) CLEAR CLEAR [facility] Color (U) PINK Abnormal YELLOW [facility] Glucose Test strip (U) [Mass/Vol] 500 mg/dl Abnormal NEGATIVE [facility] Hemoglobin Ql (U) LARGE Abnormal NEGATIVE [facility] Ketones (U) [Mass/Vol] Negative NEGAT ISABELLA mg/dl [facility] Leukocyte esterase Test strip Ql (U) TRACE Abnormal NEGATIVE [facility] Nitrite Ql (U) Negative NEGATIVE [facility] pH (U) 6.0 [pH] [facility] Protein Ql (U) 30 mg/dl Abnormal NEGATIVE [facility] Specific gravity (U) [Rel density] 1.[address] [facility] Urobilinogen (U) [Mass/Vol] 0.[address] [facility] URINE MICROSCOPICon 09-21-19 21 Bacteria LM.HPF (Urine sed) [#/Area] TRACE Abnormal NEGATIVE [facility] Casts LM.LPF (Urine sed) [#/Area] NONE NONE /LPF [facility] Crystals LM Nom (Urine sed) NONE NONE [facility] Epithelial cells LM Ql (Urine sed) 1 TO 5 /HPF [facility] Mucus Ql (Urine sed) Negative NEGATIVE [facility] RBC LM.HPF (Urine sed) [#/Area] 10 TO 20 NEGATIVE /HPF [facility] Urine sediment comments LM Clint (Urine sed) REFLEX CULTURE PER ESTABLISHED CRITERIA. [facility] WBC LM.HPF (Urine sed) [#/Area] Negative NEGATIVE /HPF [facility] XR ABDOMEN 1 VIEWon 09-21-19 21 IMPRESSION: 1. Unremarkable bowel gas pattern without excessive air or stool throughout the colon. 2. Moderate food debris in the stomach. 3. Cholecystectomy clips in the right upper quadrant are noted. [facility] User, Interfaces - 09/20/2020 11:29 PM EDT EXAM: XR ABDOMEN 1 VIEW HISTORY: left flank pain, history of multiple kidney stones COMPARISON: Plain film the abdomen from 07/14/2019. TECHNIQUE: Flat plate film was done of the abdomen and pelvis. FINDINGS: Cholecystectomy clips are noted. There is moderate food debris in the stomach. There is no significant air or stool in the colon. There is mild stool in the colon. There are mildly dilated small bowel loops within normal limits. The lung bases are clear. No obvious foreign body or gross ectopic calcifications noted except for phleboliths in the pelvis. Bony elements are intact. Background findings are consistent with morbid obesity. IMPRESSION IMPRESSION: 1. Unremarkable bowel gas pattern without excessive air or stool throughout the colon. 2. Moderate food debris in the stomach. 3. Cholecystectomy clips in the right upper quadrant are noted. [facility] EXAM: XR ABDOMEN 1 V IEW HISTORY: left flank pain, history of multiple kidney stones COMPARISON: Plain film the abdomen from 07/14/2019. TECHNIQUE: Flat plate film was done of the abdomen and pelvis. FINDINGS: Cholecystectomy clips are noted. There is moderate food debris in the stomach. There is no significant air or stool in the colon. There is mild stool in the colon. There are mildly dilated small bowel loops within normal limits. The lung bases are clear. No obvious foreign body or gross ectopic calcifications noted except for phleboliths in the pelvis. Bony elements are intact. Background findings are consistent with morbid obesity. [facility] Otheron 09-09-2020 Extra Tube Hold for add-ons. [facility] Comment on above: Auto resulted. URINALYSISon 09-09-2020 Bacteria Auto Ql (U) Few Abnormal None Se en /hpf [place] Bilirubin Ql (U) Negative Negative [facility] Clarity Refractometry automated (U) Cloudy Abnormal Clear [place] Color (U) Yellow Colorless, Yellow [place] Epithelial cells.squamous Auto (Urine sed) [#/Area] 19 High [place] Glucose Auto test strip (U) [Mass/Vol] 150 Abnormal Negative mg/dL [place] Hemoglobin Auto test strip Ql (U) Large Abnormal Negative [place] Interpretation and review of laboratory results Abnormal [place] Ketones (U) [Mass/Vol] Negative Negat isabella mg/dL [place] Leukocyte clumps Auto (Urine sed) [#/Area] Few Abnormal None Seen /hpf [place] Leukocyte esterase Auto test strip Ql (U) Large Abnormal Negative [facility] Mucus Auto (Urine sed) [#/Area] Many Abnormal None Seen, Rare /lpf [place] Nitrite Auto test strip Ql (U) Negative Negative [place] pH (U) 5.5 [pH] [place] Protein (U) [Mass/Vol] 30 Abnormal Negat isabella mg/dL [place] Comment on above: False positive resul ts may occur in urines with large amounts of hemoglobin, pH greater than 8.0, contrast medium, or disinfectants including ammonium compounds. RBC Auto (Urine sed) [#/Area] >180 High [place] Specific gravity (U) [Rel density] 1.033 High [place] Urobilinogen (U) [Mass/Vol] <2.0 <2.0 mg/dL [place] WBC Auto (Urine sed) [#/Area] >180 High [place] Microscopic examinat ion is performed on all urinalysis samples and only positive findings are reported. The test for blood on the chemical analytic portion of urinalysis may also be positive due to hemoglobinuria and myoglobinuria and if red blood cells are present they are quantified by microscopic examination. [place] BMPon 08-14-2020 Anion gap [Moles/Vol] 12 mmol/L 10 - 2 0 mmol/L [place] Calcium [Mass/Vol] 9.2 mg/dL 8.4 - 10. 2 mg/dL [place] Chloride [Moles/Vol] 110 mmol/L High 98 - 10 8 mmol/L [place] Creatinine [Mass/Vol] 0.71 mg/dL 0.40 - 1.10 [place] GFR/1.73 sq M predicted among non-blacks MDRD (S/P/Bld) [Vol rate/Area] The eGFR should be used for monitoring renal function only and not for medication dosing. [place] GFR/1.73 sq M.predicted CKD-EPI (S/P/Bld) [Vol rate/Area] 103 >=60 mL/min/1.7 3 m2 [place] Glucose [Mass/Vol] 160 mg/dL High 65 - 99 mg/dL [place] HCO3 [Moles/Vol] 24 mmol/L 21 - 32 mmol/L [place] Interpretation and review of laboratory results Abnormal [place] Potassium [Moles/Vol] 3.5 mmol/L 3.5 - 5.1 mmol/L [place] Sodium [Moles/Vol] 142 mmol/L 135 - 145 mmol/L [place] Urea nitrogen [Mass/Vol] 13 mg/dL 8 - 25 mg/dL [place] Urea nitrogen/Creatinine [Mass ratio] 18.3 mg/mg [place] CBC WITH AUTO DIFFERENTIALon 08-14-2020 Basophils (Bld) [#/Vol] 0.07 10*3/uL [place] Basophils/100 WBC (Bld) 0.9 % [place] Eosinophils (Bld) [#/Vol] 0.80 10*3/uL High [place] Eosinophils/100 WBC (Bld) 10.5 % [place] Erythrocyte distribution width (RBC) [Entitic vol] 13.6 % 11.6 - 14.8 % [place] Hematocrit (Bld) [Volume fraction] 37.3 % 36.0 - 46.0 % [place] Hemoglobin (Bld) [Mass/Vol] 12.7 g/dL 12.0 - 16.0 g/dL [place] Immature granulocytes (Bld) [#/Vol] 0.01 10*3/uL [place] Immature granulocytes/100 WBC (Bld) 0.10 % [place] Comment on above: The IG parameter is the percentage of metamyelocytes, myelocytes and promyelocytes. An immature granulocyte count (IG) of 1% or more suggests the possibility of infection, an IG count of 3% is very likely related to an infection. Interpretation and review of laboratory results Abnormal [place] Lymphocytes (Bld) [#/Vol] 2.52 10*3/uL [place] Lymphocytes/100 WBC (Bld) 32.9 % [place] MCH (RBC) [Entitic mass] 28.5 pg 26.0 - 34.0 pg [place] MCHC (RBC) [Mass/Vol] 34.0 g/dL 31.0 - 37.0 g/dL [place] MCV (RBC) [Entitic vol] 83.6 fL 80.0 - 100.0 fL [place] Monocytes (Bld) [#/Vol] 0.67 10*3/uL [place] Monocytes/100 WBC (Bld) 8.8 % [place] Neutrophils (Bld) [#/Vol] 3.58 10*3/uL [place] Neutrophils/100 WBC (Bld) 46.8 % [place] Nucleated RBC (Bld) [#/Vol] 0.00 10*3/uL [place] Nucleated RBC/100 WBC (Bld) [Ratio] 0.0 % [place] Platelet mean volume (Bld) [Entitic vol] 9.5 fL 9.4 - 12.4 fL [place] Platelets (Bld) [#/Vol] 258 10*3/uL [place] RBC (Bld) [#/Vol] 4.46 10*6/uL [facility] ealt WBC (Bld) [#/Vol] 7.65 10*3/uL [facility] Abdomen Pelvis With IV Co ntrast Onlyon 08-14-2020 1. No specific etiol ogy identified to explain the patient's abdominal pain. 2. Liquid stool in the colon suggestive of diarrhea. No evidence of bowel obstruction is seen. 3. Nonobstructive right renal calculi. 4. Normal appendix. 5. Status post hysterectomy. [employer] Workstation ID: [id number] [place] Interface, Rad In Fu ji Speechq - 08/14/2020 11:08 PM EST EXAMINATION: CT ABDOMEN PELVIS WITH IV CONTRAST ONLY HISTORY: ORDERING SYSTEM PROVIDED HISTORY: Abdominal pain, weight loss, TECHNOLOGIST PROVIDED HISTORY: Illness/Other Reason for exam: N/V/D, 40 POUND WEIGHT LOSS Encounter Type: Unknown Additional signs and symptoms: UNKNOWN ORDERING SYSTEM PROVIDED DIAGNOSIS CODES: COMPARISON: CT abdomen and pelvis examination dated 07/16/2020. TECHNIQUE: CT examination of the abdomen and pelvis following the administration of intravenous contrast. Coronal and sagittal reformations were performed. Dose reduction techniques were achieved by using automated exposure control and/or adjustment of mA and/or kV according to patient size and/or use of iterative reconstruction technique. CONTRAST: IOPAMIDOL 76 % INTRAVENOUS SOLUTION - 75 mL, FINDINGS: The visualized portions of the lung bases are clear. ABDOMEN: The liver and spleen enhance homogeneously without focal lesion. There is no intra or extrahepatic biliary duct dilatation. The gallbladder is surgically absent. There are a couple nonobstructive right renal calculi measuring up to 2 mm. Liquid stool is seen within the colon without evidence of bowel obstruction. Otherwise, the pancreas, adrenal glands, kidneys, and bowel loops including the appendix, are unremarkable. There is no mesenteric or retroperitoneal lymphadenopathy. PELVIS: The bladder and rectum are unremarkable. There is no iliac or inguinal lymphadenopathy. The patient is status post hysterectomy. Bone windows show no aggressive osseous lesions. IMPRESSION: 1. No specific etiology identified to explain the patient's abdominal pain. 2. Liquid stool in the colon suggestive of diarrhea. No evidence of bowel obstruction is seen. 3. Nonobstructive right renal calculi. 4. Normal appendix. 5. Status post hysterectomy. [employer] Workstation ID: [id number] [place] EXAMINATION: CT ABDO MEN PELVIS WITH IV CONTRAST ONLY HISTORY: ORDERING SYSTEM PROVIDED HISTORY: Abdominal pain, weight loss, TECHNOLOGIST PROVIDED HISTORY: Illness/Other Reason for exam: N/V/D, 40 POUND WEIGHT LOSS Encounter Type: Unknown Additional signs and symptoms: UNKNOWN ORDERING SYSTEM PROVIDED DIAGNOSIS CODES: COMPARISON: CT abdomen and pelvis examination dated 07/16/2020. TECHNIQUE: CT examination of the abdomen and pelvis following the administration of intravenous contrast. Coronal and sagittal reformations were performed. Dose reduction techniques were achieved by using automated exposure control and/or adjustment of mA and/or kV according to patient size and/or use of iterative reconstruction technique. CONTRAST: IOPAMIDOL 76 % INTRAVENOUS SOLUTION - 75 mL, FINDINGS: The visualized portions of the lung bases are clear. ABDOMEN: The liver and spleen enhance homogeneously without focal lesion. There is no intra or extrahepatic biliary duct dilatation. The gallbladder is surgically absent. There are a couple nonobstructive right renal calculi measuring up to 2 mm. Liquid stool is seen within the colon without evidence of bowel obstruction. Otherwise, the pancreas, adrenal glands, kidneys, and bowel loops including the appendix, are unremarkable. There is no mesenteric or retroperitoneal lymphadenopathy. PELVIS: The bladder and rectum are unremarkable. There is no iliac or inguinal lymphadenopathy. The patient is status post hysterectomy. Bone windows show no aggressive osseous lesions. [place] HCG (QUALITATIVE)on 08-14-19 21 Beta HCG ( test) Ql Negative Negative [place] Negative: The result is less than or equal to 5 mIU/mL of HCG. [place] Hepatic Function Panel (LFT) on 08-14-2020 Albumin [Mass/Vol] 3.9 g/dL 3.2 - 5.2 g/dL [place] ALP [Catalytic activity/Vol] 72 U/L 40 - 150 U/L [place] ALT [Catalytic activity/Vol] 42 U/L 14 - 65 U/L [place] AST [Catalytic activity/Vol] 27 U/L 0 - 45 U/L [place] Bilirubin [Mass/Vol] 0.6 mg/dL 0.0 - 1 .3 mg/dL [place] Bilirubin.conjugated [Mass/Vol] 0.2 mg/dL 0.0 - 0.4 mg/dL [place] Protein [Mass/Vol] 7.8 g/dL 6.0 - 8.0 g/dL [place] Lipaseon 08-14-2020 Lipase [Catalytic activity/Vol] 184 U/L 73 - 393 U/L [place] Otheron 08-14-2020 Extra Tube Hold for add-ons. [facility] Comment on above: Auto resulted. Interpretation and review of laboratory results Normal [place] URINALYSISon 08-14-2020 Bacteria Auto Ql (U) Rare Abnormal None Se en /hpf [place] Bilirubin Ql (U) Negative Negative [facility] Clarity Refractometry automated (U) Cloudy Abnormal Clear [place] Color (U) Yellow Colorless, Yellow [place] Epithelial cells.squamous Auto (Urine sed) [#/Area] 6 High [place] Glucose Auto test strip (U) [Mass/Vol] Negative Negative mg/dL [place] Hemoglobin Auto test strip Ql (U) Large Abnormal Negative [place] Interpretation and review of laboratory results Abnormal [place] Ketones (U) [Mass/Vol] Negative Negat isabella mg/dL [place] Leukocyte esterase Auto test strip Ql (U) Large Abnormal Negative [facility] Mucus Auto (Urine sed) [#/Area] Few Abnormal None Seen, Rare /lpf [place] Nitrite Auto test strip Ql (U) Negative Negative [place] pH (U) 6.0 [pH] [place] Protein (U) [Mass/Vol] Negative Negat isabella mg/dL [place] RBC Auto (Urine sed) [#/Area] >180 High [place] Specific gravity (U) [Rel density] 1.024 [place] Transitional cells Computer assisted (U) [#/Area] <1 [place] Urobilinogen (U) [Mass/Vol] <2.0 <2.0 mg/dL [place] WBC Auto (Urine sed) [#/Area] 17 High [place] Microscopic examinat ion is performed on all urinalysis samples and only positive findings are reported. The test for blood on the chemical analytic portion of urinalysis may also be positive due to hemoglobinuria and myoglobinuria and if red blood cells are present they are quantified by microscopic examination. [place] BMPon 07-16-2020 Anion gap [Moles/Vol] 9 mmol/L Low 10 - 2 0 mmol/L [place] Calcium [Mass/Vol] 9.7 mg/dL 8.4 - 10. 2 mg/dL [place] Chloride [Moles/Vol] 107 mmol/L 98 - 10 8 mmol/L [place] Creatinine [Mass/Vol] 0.72 mg/dL 0.40 - 1.10 [place] GFR/1.73 sq M predicted among non-blacks MDRD (S/P/Bld) [Vol rate/Area] The eGFR should be used for monitoring renal function only and not for medication dosing. [place] GFR/1.73 sq M.predicted CKD-EPI (S/P/Bld) [Vol rate/Area] 101 >=60 mL/min/1.7 3 m2 [place] Glucose [Mass/Vol] 109 mg/dL High 65 - 99 mg/dL [place] HCO3 [Moles/Vol] 28 mmol/L 21 - 32 mmol/L [place] Interpretation and review of laboratory results Abnormal [place] Potassium [Moles/Vol] 3.7 mmol/L 3.5 - 5.1 mmol/L [place] Sodium [Moles/Vol] 140 mmol/L 135 - 145 mmol/L [place] Urea nitrogen [Mass/Vol] 17 mg/dL 8 - 25 mg/dL [place] Urea nitrogen/Creatinine [Mass ratio] 23.6 mg/mg High [place] CBC WITH AUTO DIFFERENTIALon 07-16-2020 Basophils (Bld) [#/Vol] 0.06 10*3/uL [place] Basophils/100 WBC (Bld) 0.6 % [place] Eosinophils (Bld) [#/Vol] 0.23 10*3/uL [place] Eosinophils/100 WBC (Bld) 2.4 % [place] Erythrocyte distribution width (RBC) [Entitic vol] 14.2 % 11.6 - 14.8 % [place] Hematocrit (Bld) [Volume fraction] 39.3 % 36.0 - 46.0 % [place] Hemoglobin (Bld) [Mass/Vol] 13.0 g/dL 12.0 - 16.0 g/dL [place] Immature granulocytes (Bld) [#/Vol] 0.03 10*3/uL [place] Immature granulocytes/100 WBC (Bld) 0.30 % [place] Comment on above: The IG parameter is the percentage of metamyelocytes, myelocytes and promyelocytes. An immature granulocyte count (IG) of 1% or more suggests the possibility of infection, an IG count of 3% is very likely related to an infection. Interpretation and review of laboratory results Abnormal [place] Lymphocytes (Bld) [#/Vol] 2.36 10*3/uL [place] Lymphocytes/100 WBC (Bld) 25.1 % [place] MCH (RBC) [Entitic mass] 28.3 pg 26.0 - 34.0 pg [place] MCHC (RBC) [Mass/Vol] 33.1 g/dL 31.0 - 37.0 g/dL [place] MCV (RBC) [Entitic vol] 85.6 fL 80.0 - 100.0 fL [place] Monocytes (Bld) [#/Vol] 0.56 10*3/uL [place] Monocytes/100 WBC (Bld) 5.9 % [place] Neutrophils (Bld) [#/Vol] 6.18 10*3/uL [place] Neutrophils/100 WBC (Bld) 65.7 % [place] Nucleated RBC (Bld) [#/Vol] 0.00 10*3/uL [place] Nucleated RBC/100 WBC (Bld) [Ratio] 0.0 % [place] Platelet mean volume (Bld) [Entitic vol] 9.3 fL Low 9.4 - 12.4 fL [place] Platelets (Bld) [#/Vol] 248 10*3/uL [place] RBC (Bld) [#/Vol] 4.59 10*6/uL [facility] WBC (Bld) [#/Vol] 9.42 10*3/uL [facility] CT KIDNEY STONEon 07-16-2020 EXAMINATION: CT LOWELL EY STONE HISTORY: Right-sided flank pain COMPARISON: 07/08/2020 TECHNIQUE: Axial CT images of the abdomen and pelvis were obtained without intravenous contrast. Multiplanar 2D reconstructed images were obtained and reviewed. Dose reduction techniques were achieved by using: automated exposure control and/or adjustment of mA and/or kV according to patient size and/or use of iterative reconstruction technique. FINDINGS: Please note that the sensitivity for detection of focal lesions or vascular disease is markedly reduced without intravenous contrast. The upper abdomen is not fully imaged. Liver/Gallbladder: Mild prominence of the common bile duct may represent reservoir effect status post cholecystectomy. Cholecystectomy clips. Spleen: Partially imaged. The visualized portion appears mildly enlarged. Stomach: Mildly distended. Pancreas: No abnormal/focal ductal dilation. Adrenal glands: Unremarkable bilaterally. Kidneys/ureters: Right-sided nephrolithiasis. No hydronephrosis, hydroureter, or ureteral calculus. Urinary bladder: The partially decompressed urinary bladder is suboptimally evaluated. Reproductive organs: The uterus is not visualized. Please note that the adnexal structures are suboptimally evaluated on noncontrast CT. Bowel/appendix: The decompressed rectum is suboptimally evaluated on this exam. The decompressed portions of the large bowel loops are suboptimally evaluated on this exam. No bowel obstruction noted. No CT evidence of acute appendicitis. Peritoneum/retroperitoneu m: There is no abscess or free air. There is no evidence of aortic aneurysm. No pathologically enlarged lymph nodes are visualized per CT size and morphological criteria. Soft tissue: Unremarkable. Bone: No acute osseous abnormality. [place] Scattered right-side d renal calculi without ureteral calculus. Mildly distended stomach. Additional findings as described above. /r Workstation ID: [id number] [place] Interface, Rad In Fu ji Speechq - 07/16/2020 7:19 PM EST EXAMINATION: CT KIDNEY STONE HISTORY: Right-sided flank pain COMPARISON: 07/08/2020 TECHNIQUE: Axial CT images of the abdomen and pelvis were obtained without intravenous contrast. Multiplanar 2D reconstructed images were obtained and reviewed. Dose reduction techniques were achieved by using: automated exposure control and/or adjustment of mA and/or kV according to patient size and/or use of iterative reconstruction technique. FINDINGS: Please note that the sensitivity for detection of focal lesions or vascular disease is markedly reduced without intravenous contrast. The upper abdomen is not fully imaged. Liver/Gallbladder: Mild prominence of the common bile duct may represent reservoir effect status post cholecystectomy. Cholecystectomy clips. Spleen: Partially imaged. The visualized portion appears mildly enlarged. Stomach: Mildly distended. Pancreas: No abnormal/focal ductal dilation. Adrenal glands: Unremarkable bilaterally. Kidneys/ureters: Right-sided nephrolithiasis. No hydronephrosis, hydroureter, or ureteral calculus. Urinary bladder: The partially decompressed urinary bladder is suboptimally evaluated. Reproductive organs: The uterus is not visualized. Please note that the adnexal structures are suboptimally evaluated on noncontrast CT. Bowel/appendix: The decompressed rectum is suboptimally evaluated on this exam. The decompressed portions of the large bowel loops are suboptimally evaluated on this exam. No bowel obstruction noted. No CT evidence of acute appendicitis. Peritoneum/retroperitoneu m: There is no abscess or free air. There is no evidence of aortic aneurysm. No pathologically enlarged lymph nodes are visualized per CT size and morphological criteria. Soft tissue: Unremarkable. Bone: No acute osseous abnormality. IMPRESSION: Scattered right-sided renal calculi without ureteral calculus. Mildly distended stomach. Additional findings as described above. /[facility] Workstation ID: [id number] [place] HCG (QUALITATIVE)on 07-16-19 21 Beta HCG ( test) Ql Negative Negative [place] Negative: The result is less than or equal to 5 mIU/mL of HCG. [place] Hepatic Function Panel (LFT) on 07-16-2020 Albumin [Mass/Vol] 3.9 g/dL 3.2 - 5.2 g/dL [place] ALP [Catalytic activity/Vol] 64 U/L 40 - 150 U/L [place] ALT [Catalytic activity/Vol] 24 U/L 14 - 65 U/L [place] AST [Catalytic activity/Vol] 16 U/L 0 - 45 U/L [place] Bilirubin [Mass/Vol] 0.5 mg/dL 0.0 - 1 .3 mg/dL [place] Bilirubin.conjugated [Mass/Vol] 0.2 mg/dL 0.0 - 0.4 mg/dL [place] Protein [Mass/Vol] 8.0 g/dL 6.0 - 8.0 g/dL [place] Lactic Acid, Plasmaon 2020 Interpretation and review of laboratory results Normal [place] Lactate [Moles/Vol] 1.4 mmol/L 0.6 - 2. 0 mmol/L [place] Lipaseon 07-16-2020 Lipase [Catalytic activity/Vol] 199 U/L 73 - 393 U/L [place] Otheron 07-16-2020 Interpretation and review of laboratory results Normal [place] URINALYSISon 07-16-2020 Bacteria Auto Ql (U) Rare Abnormal None Se en /hpf [place] Bilirubin Ql (U) Negative Negative [facility] th Clarity Refractometry automated (U) Cloudy Abnormal Clear [place] Color (U) Yellow Colorless, Yellow [place] Epithelial cells.squamous Auto (Urine sed) [#/Area] 7 High [place] Glucose Auto test strip (U) [Mass/Vol] Negative Negative mg/dL [place] Hemoglobin Auto test strip Ql (U) Moderate Abnormal Negative [place] Interpretation and review of laboratory results Abnormal [place] Ketones (U) [Mass/Vol] Negative Negat isabella mg/dL [place] Leukocyte esterase Auto test strip Ql (U) Large Abnormal Negative [facility] h Mucus Auto (Urine sed) [#/Area] Many Abnormal None Seen, Rare /lpf [place] Nitrite Auto test strip Ql (U) Negative Negative [place] pH (U) 6.0 [pH] [place] Protein (U) [Mass/Vol] 30 Abnormal Negat isabella mg/dL [place] Comment on above: False positive resul ts may occur in urines with large amounts of hemoglobin, pH greater than 8.0, contrast medium, or disinfectants including ammonium compounds. RBC Auto (Urine sed) [#/Area] >180 High [place] Specific gravity (U) [Rel density] 1.029 High [place] Transitional cells Computer assisted (U) [#/Area] <1 [place] Urobilinogen (U) [Mass/Vol] <2.0 <2.0 mg/dL [place] WBC Auto (Urine sed) [#/Area] 9 High [place] Microscopic examinat ion is performed on all urinalysis samples and only positive findings are reported. The test for blood on the chemical analytic portion of urinalysis may also be positive due to hemoglobinuria and myoglobinuria and if red blood cells are present they are quantified by microscopic examination. [place] BMPon 07-08-2020 Anion gap [Moles/Vol] 9 mmol/L Low 10 - 2 0 mmol/L [place] Calcium [Mass/Vol] 9.6 mg/dL 8.4 - 10. 2 mg/dL [place] Chloride [Moles/Vol] 107 mmol/L 98 - 10 8 mmol/L [place] Creatinine [Mass/Vol] 0.99 mg/dL 0.40 - 1.10 [place] GFR/1.73 sq M predicted among non-blacks MDRD (S/P/Bld) [Vol rate/Area] The eGFR should be used for monitoring renal function only and not for medication dosing. [place] GFR/1.73 sq M.predicted CKD-EPI (S/P/Bld) [Vol rate/Area] 69 >=60 mL/min/1.7 3 m2 [place] Glucose [Mass/Vol] 142 mg/dL High 65 - 99 mg/dL [place] HCO3 [Moles/Vol] 28 mmol/L 21 - 32 mmol/L [place] Interpretation and review of laboratory results Abnormal [place] Potassium [Moles/Vol] 3.5 mmol/L 3.5 - 5.1 mmol/L [place] Sodium [Moles/Vol] 140 mmol/L 135 - 145 mmol/L [place] Urea nitrogen [Mass/Vol] 17 mg/dL 8 - 25 mg/dL [place] Urea nitrogen/Creatinine [Mass ratio] 17.2 mg/mg [place] CBC WITH AUTO DIFFERENTIALon 07-08-2020 Basophils (Bld) [#/Vol] 0.09 10*3/uL [place] Basophils/100 WBC (Bld) 1.1 % [place] Eosinophils (Bld) [#/Vol] 0.19 10*3/uL [place] Eosinophils/100 WBC (Bld) 2.3 % [place] Erythrocyte distribution width (RBC) [Entitic vol] 14.1 % 11.6 - 14.8 % [place] Hematocrit (Bld) [Volume fraction] 39.1 % 36 - 46 % [place] Hemoglobin (Bld) [Mass/Vol] 12.8 g/dL 12 - 16 g/dL [place] Immature granulocytes (Bld) [#/Vol] 0.02 10*3/uL [place] Immature granulocytes/100 WBC (Bld) 0.20 % [place] Comment on above: The IG parameter is the percentage of metamyelocytes, myelocytes and promyelocytes. An immature granulocyte count (IG) of 1% or more suggests the possibility of infection, an IG count of 3% is very likely related to an infection. Lymphocytes (Bld) [#/Vol] 2.35 10*3/uL [place] Lymphocytes/100 WBC (Bld) 29.0 % [place] MCH (RBC) [Entitic mass] 27.5 pg 26 - 34 pg [place] MCHC (RBC) [Mass/Vol] 32.7 g/dL 31 - 3 7 g/dL [place] MCV (RBC) [Entitic vol] 83.9 fL 80 - 100 fL [place] Monocytes (Bld) [#/Vol] 0.69 10*3/uL [place] Monocytes/100 WBC (Bld) 8.5 % [place] Neutrophils (Bld) [#/Vol] 4.75 10*3/uL [place] Neutrophils/100 WBC (Bld) 58.9 % [place] Nucleated RBC (Bld) [#/Vol] 0.00 10*3/uL [place] Nucleated RBC/100 WBC (Bld) [Ratio] 0.0 % [place] Platelet mean volume (Bld) [Entitic vol] 9.6 fL 9.4 - 12.4 fL [place] Platelets (Bld) [#/Vol] 264 10*3/uL [place] RBC (Bld) [#/Vol] 4.66 10*6/uL [facility] ealt WBC (Bld) [#/Vol] 8.09 10*3/uL [facility] 07-08-2020 Patchy bilateral low er lobe airspace disease. Question viral/atypical pneumonia. Nonobstructing right renal calculi. No bowel obstruction or hydronephrosis. Additional nonacute findings, as detailed above. Workstation ID: [id number] [place] EXAMINATION: CT KIDN EY STONE HISTORY: F, 45 y/o , Flank pain, kidney stone suspected COMPARISON: 12/16/2010 TECHNIQUE: Computed tomography of the abdomen and pelvis is performed in the axial projection from the lung bases to the pubic symphysis. Sagittal and coronal reconstructed images are performed. Dose reduction techniques were achieved by using automated exposure control and/or adjustment of mA and/or KVP according to patient size and/or use of iterative reconstruction technique. FINDINGS: Lung bases: There is patchy airspace disease at both lung bases. Question viral/atypical pneumonia. There is no pleural effusion. The visualized portions of the heart are unremarkable. Evaluation of the solid abdominal organs is limited in the absence of intravenous contrast. Liver: There is focal fatty infiltration adjacent to the falciform ligament. Gallbladder: There has been a cholecystectomy. Spleen: The spleen is normal. Pancreas: The pancreas is normal. Adrenal glands: The adrenal glands are normal bilaterally. Right kidney: The kidney is normal in size. There are small nonobstructing calculi within the mid and superior pole of the right kidney, the largest measuring 2-3 mm. No hydronephrosis. Left kidney: The kidney is normal in size. There is no renal calculus or hydronephrosis. Stomach: The stomach is distended with debris, suggesting a recent ingested meal. Small bowel: The small bowel is normal. Large bowel: The colon is normal. Appendix: The appendix is visualized, and is normal. Aorta: The aorta is normal IVC: The IVC is normal. Retroperitoneum: Normal retroperitoneum. Bladder: The bladder is empty at the time of scanning. Pelvic organs: There has been a hysterectomy. Multiple phleboliths are seen within the pelvis. Abdominal wall: Postoperative changes are seen to the anterior abdominal wall. Osseous structures: There are mild degenerative changes within the spine. [facility], Rad In Fu ji Speechq - 07/08/2020 9:23 PM EST EXAMINATION: CT KIDNEY STONE HISTORY: F, 45 y/o , Flank pain, kidney stone suspected COMPARISON: 12/16/2010 TECHNIQUE: Computed tomography of the abdomen and pelvis is performed in the axial projection from the lung bases to the pubic symphysis. Sagittal and coronal reconstructed images are performed. Dose reduction techniques were achieved by using automated exposure control and/or adjustment of mA and/or KVP according to patient size and/or use of iterative reconstruction technique. FINDINGS: Lung bases: There is patchy airspace disease at both lung bases. Question viral/atypical pneumonia. There is no pleural effusion. The visualized portions of the heart are unremarkable. Evaluation of the solid abdominal organs is limited in the absence of intravenous contrast. Liver: There is focal fatty infiltration adjacent to the falciform ligament. Gallbladder: There has been a cholecystectomy. Spleen: The spleen is normal. Pancreas: The pancreas is normal. Adrenal glands: The adrenal glands are normal bilaterally. Right kidney: The kidney is normal in size. There are small nonobstructing calculi within the mid and superior pole of the right kidney, the largest measuring 2-3 mm. No hydronephrosis. Left kidney: The kidney is normal in size. There is no renal calculus or hydronephrosis. Stomach: The stomach is distended with debris, suggesting a recent ingested meal. Small bowel: The small bowel is normal. Large bowel: The colon is normal. Appendix: The appendix is visualized, and is normal. Aorta: The aorta is normal IVC: The IVC is normal. Retroperitoneum: Normal retroperitoneum. Bladder: The bladder is empty at the time of scanning. Pelvic organs: There has been a hysterectomy. Multiple phleboliths are seen within the pelvis. Abdominal wall: Postoperative changes are seen to the anterior abdominal wall. Osseous structures: There are mild degenerative changes within the spine. IMPRESSION: Patchy bilateral lower lobe airspace disease. Question viral/atypical pneumonia. Nonobstructing right renal calculi. No bowel obstruction or hydronephrosis. Additional nonacute findings, as detailed above. Workstation ID: [id number] [place] URINALYSISon 07-08-2020 Bacteria Auto Ql (U) Few Abnormal None Se en /hpf [place] Bilirubin Ql (U) Negative Negative [facility] Clarity Refractometry automated (U) Cloudy Abnormal Clear [place] Color (U) Yellow Colorless, Yellow [place] Epithelial cells.squamous Auto (Urine sed) [#/Area] 12 High [place] Glucose Auto test strip (U) [Mass/Vol] Negative Negative mg/dL [place] Hemoglobin Auto test strip Ql (U) Large Abnormal Negative [place] Interpretation and review of laboratory results Abnormal [place] Ketones (U) [Mass/Vol] Trace Abnormal Negat isabella mg/dL [place] Leukocyte esterase Auto test strip Ql (U) Large Abnormal Negative [facility] h Mucus Auto (Urine sed) [#/Area] Many Abnormal None Seen, Rare /lpf [place] Nitrite Auto test strip Ql (U) Negative Negative [place] pH (U) 5.5 [pH] [place] Protein (U) [Mass/Vol] 30 Abnormal Negat isabella mg/dL [place] Comment on above: False positive resul ts may occur in urines with large amounts of hemoglobin, pH greater than 8.0, contrast medium, or disinfectants including ammonium compounds. RBC Auto (Urine sed) [#/Area] 88 High [place] Specific gravity (U) [Rel density] 1.028 High [place] Transitional cells Computer assisted (U) [#/Area] <1 [place] Urobilinogen (U) [Mass/Vol] <2.0 <2.0 mg/dL [place] WBC Auto (Urine sed) [#/Area] 52 High [place] Microscopic examinat ion is performed on all urinalysis samples and only positive findings are reported. The test for blood on the chemical analytic portion of urinalysis may also be positive due to hemoglobinuria and myoglobinuria and if red blood cells are present they are quantified by microscopic examination. [place] XR Chest 1 Viewon 07-08-2020 Interface, Rad In Fu ji Speechq - 07/08/2020 9:57 PM EST EXAMINATION: XR CHEST PA/AP 07/08/2020 9:40 pm HISTORY: ORDERING SYSTEM PROVIDED HISTORY: Basilar Infiltrates on CT Scan Stone Study, TECHNOLOGIST PROVIDED HISTORY: Illness/Other Reason for exam: Basilar Infiltrates on CT Scan Stone Study Cancer History: NA Surgery, RadiationHistory: NA Encounter Type: Initial Additional signs and symptoms: . ORDERING SYSTEM PROVIDED DIAGNOSIS CODES: COMPARISON: Same day CT abdomen pelvis FINDINGS: Cardiomediastinal silhouette within normal limits. Left basilar airspace opacities. Otherwise the lungs appear clear. IMPRESSION: 1. Left basilar airspace opacities. Question developing pneumonia. 2. Lungs otherwise clear. Workstation ID: [id number] [place] EXAMINATION: XR CHES T PA/AP 07/08/2020 9:40 pm HISTORY: ORDERING SYSTEM PROVIDED HISTORY: Basilar Infiltrates on CT Scan Stone Study, TECHNOLOGIST PROVIDED HISTORY: Illness/Other Reason for exam: Basilar Infiltrates on CT Scan Stone Study Cancer History: NA Surgery, RadiationHistory: NA Encounter Type: Initial Additional signs and symptoms: . ORDERING SYSTEM PROVIDED DIAGNOSIS CODES: COMPARISON: Same day CT abdomen pelvis FINDINGS: Cardiomediastinal silhouette within normal limits. Left basilar airspace opacities. Otherwise the lungs appear clear. [place] 1. Left basilar airs pace opacities. Question developing pneumonia. 2. Lungs otherwise clear. Workstation ID: [id number] [place] CBC Auto Differentialon Basophils (Bld) [#/Vol] 0.1 10*3/uL 0 - 0.2 K/uL [place], [place] Basophils/100 WBC (Bld) 0.9 % [place] Eosinophils (Bld) [#/Vol] 0.3 10*3/uL 0 - 0.7 K/uL [place] Eosinophils/100 WBC (Bld) 3.3 % [place] Erythrocyte distribution width (RBC) [Ratio] 16.1 % High 11.5 - 14.5 % [place] Hematocrit (Bld) [Volume fraction] 37.0 % 37 - 47 % [place] Hemoglobin (Bld) [Mass/Vol] 12.8 g/dL 12 - 16 g/dL [place] Interpretation and review of laboratory results Abnormal [place] Lymphocytes (Bld) [#/Vol] 2.8 10*3/uL 1 - 4.8 K/uL [place] Lymphocytes/100 WBC (Bld) 33.9 % [place] MCH (RBC) [Entitic mass] 28.7 pg 27 - 31.3 pg [place] MCHC (RBC) [Mass/Vol] 34.5 % 33 - 37 % [place], [place] MCV (RBC) [Entitic vol] 83.1 fL 82 - 100 fL [place] Monocytes (Bld) [#/Vol] 0.7 10*3/uL 0.2 - 0.8 K/uL [place] Monocytes/100 WBC (Bld) 8.5 % [place] Neutrophils Absolute 4.4 K/uL 1.4 - 6 .5 K/uL [place] Neutrophils/100 WBC (Bld) 53.4 % [place] Platelets (Bld) [#/Vol] 306 10*3/uL 130 - 400 K/uL [place] RBC (Bld) [#/Vol] 4.46 10*6/uL [place] WBC (Bld) [#/Vol] 8.2 10*3/uL 4.8 - 10.8 K/uL [place] Comprehensive Metabolic Pane ben 07-01-2020 Albumin [Mass/Vol] 4.9 g/dL High 3.5 - 4.6 g/dL [place] ALP [Catalytic activity/Vol] 70 U/L 40 - 130 U/L [place] ALT [Catalytic activity/Vol] 15 U/L 0 - 33 U/L [place] Anion gap [Moles/Vol] 12 mmol/L [place], [place] AST [Catalytic activity/Vol] 17 U/L 0 - 35 U/L [place] Bilirubin Ql (U) 0.4 mg/dL 0.2 - 0.7 mg/dL [place] Calcium [Mass/Vol] 9.5 mg/dL 8.5 - 9.9 mg/dL [place] Chloride [Moles/Vol] 103 mmol/L [place] CO2 [Moles/Vol] [facility] [place] [place] Creatinine [Mass/Vol] 0.52 mg/dL 0.5 - 0.9 mg/dL [place] GFR >60.0 >60 [place], [place] Comment on above: >60 mL/min/1.73m2 EG FR, calc. for ages 18 and older using the MDRD formula (not corrected for weight), is valid for stable renal function. GFR Non- >60.0 >60 [place], [place] Comment on above: >60 mL/min/1.73m2 EG FR, calc. for ages 18 and older using the MDRD formula (not corrected for weight), is valid for stable renal function. Globulin (S) [Mass/Vol] 2.4 g/dL 2.3 - 3.5 g/dL [place] Glucose [Mass/Vol] 187 mg/dL High 70 - 99 mg/dL [place] Interpretation and review of laboratory results Abnormal [place] Potassium [Moles/Vol] 3.5 mmol/L [place], [place] Protein [Mass/Vol] 7.3 g/dL 6.3 - 8 g/dL [place] Sodium [Moles/Vol] 138 mmol/L [place] Urea nitrogen [Mass/Vol] 16 mg/dL 6 - 20 mg/dL [place] Microscopic Urinalysison Bacteria, UA RARE Abnormal Negative /HPF [place] Crystals, UA 3+ Ca. Oxalate Abnormal None Seen /HPF [place] Epithelial Cells, UA 6-10 [place], [place] Mucus, UA Present None Seen /LPF [place] RBC (U) [#/Vol] /uL [place] WBC, UA >100 High [place] Otheron 07-01-2020 Interpretation and review of laboratory results Abnormal [place] Urine Reflex to Cultureon Bilirubin Urine Negative Negative [place] Blood, Urine LARGE Abnormal Negative [place] Clarity, UA TURBID Abnormal Clear [place] Color, UA Yellow Straw/Clay ow [place], [place] Glucose, Ur Negative Negative mg/dL [place] Ketones Ql (U) TRACE Abnormal Negative mg/dL [place] Leukocyte esterase Test strip Ql (U) MODERATE Abnormal Negative [place] Nitrite, Urine Negative Negative [place], [place] pH, UA 5.5 [place] Protein (U) [Mass/Vol] 30 mg/dL Abnormal Negative [place] Specific [place], UA 1.035 [place], [place] Urine Reflex to Culture Yes [place] Urobilinogen, Urine 0.2 <2.0 E.U./dL [place], [place] C-Reactive Proteinon 020 CRP [Mass/Vol] 6.4 mg/L High 0 - 5 mg/L [place], [place] Interpretation and review of laboratory results Abnormal [place], [place] CBC Auto Differentialon 3 Basophils (Bld) [#/Vol] 0.0 10*3/uL 0 - 0.2 K/uL [place], [place] Basophils/100 WBC (Bld) 0.3 % [place] Eosinophils (Bld) [#/Vol] 0.0 10*3/uL 0 - 0.7 K/uL [place] Eosinophils/100 WBC (Bld) 0.5 % [place] Erythrocyte distribution width (RBC) [Ratio] 15.4 % High 11.5 - 14.5 % [place] Hematocrit (Bld) [Volume fraction] 33.9 % Low 37 - 47 % [place] Hemoglobin (Bld) [Mass/Vol] 11.4 g/dL Low 12 - 16 g/dL [place] Interpretation and review of laboratory results Abnormal [place] Lymphocytes (Bld) [#/Vol] 0.7 10*3/uL Low 1 - 4.8 K/uL [place] Lymphocytes/100 WBC (Bld) 12.7 % [place] MCH (RBC) [Entitic mass] 28.5 pg 27 - 31.3 pg [place] MCHC (RBC) [Mass/Vol] 33.7 % 33 - 37 % [place] MCV (RBC) [Entitic vol] 84.6 fL 82 - 100 fL [place] Monocytes (Bld) [#/Vol] 0.1 10*3/uL Low 0.2 - 0.8 K/uL [place], [place] Monocytes/100 WBC (Bld) 1.5 % [place] Neutrophils Absolute 4.5 K/uL 1.4 - 6 .5 K/uL [place] Neutrophils/100 WBC (Bld) 85.0 % [place] Platelets (Bld) [#/Vol] 150 10*3/uL 130 - 400 K/uL [place] RBC (Bld) [#/Vol] 4.01 10*6/uL Low [place] WBC (Bld) [#/Vol] 5.3 10*3/uL 4.8 - 10.8 K/uL [place] CTA CHEST [facility] EXAM: CT SCAN OF THE THORAX WITH CONTRAST/PE PROTOCOL/CTA CHEST COMPARISON: NONE AVAILABLE REASON FOR EXAMINATION: CHEST PAIN, SHORTNESS OF BREATH, TACHYCARDIA,COVID 19 PNEUMONIA. TECHNIQUE: Helical CTA was performed through the chest utilizing 100 cc of Isovue-300, and intravenous contrast medium. Images were obtained with bolus tracking in order to opacify the pulmonary arteries. Thick section coronal MIP 3D reconstructions were performed on a separate workstation. FINDINGS: No intraluminal filling defects, pulmonary arterial tree. Thoracic aorta normal in course and caliber. Cardiac size normal. No pericardial effusion. Right and left lung show multifocal, patchy, predominantly peripheral areas of groundglass opacity. No nodules and no masses. No pleural effusion, pneumothorax, consolidation. 9 x 10 mm right hilar lymph node. 10 mm left hilar lymph node. No axillary no mediastinal lymph node enlargement. Limited imaging upper abdomen shows no gross anomaly. No osteoblastic, no osteolytic lesions. [place], [place] No CT evidence pulmo nary embolism. Commonly reported imaging features of covid 19 pneumonia are identified. Other processes such as influenza pneumonia and organizing pneumonia, as can be seen with drug toxicity and connective tissue disease, can cause a similar imaging pattern. Borderline bilateral hilar lymph node enlargement. All CT scans at this facility use dose modulation, iterative reconstruction, and/or weight based dosing when appropriate to reduce radiation dose to as low as reasonably achievable. [place] Nannette Marcos Incoming Radiant Results From [facility] - 05/28/2020 8:05 AM EST EXAM: CT SCAN OF THE THORAX WITH CONTRAST/PE PROTOCOL/CTA CHEST COMPARISON: NONE AVAILABLE REASON FOR EXAMINATION: CHEST PAIN, SHORTNESS OF BREATH, TACHYCARDIA,COVID 19 PNEUMONIA. TECHNIQUE: Helical CTA was performed through the chest utilizing 100 cc of Isovue-300, and intravenous contrast medium. Images were obtained with bolus tracking in order to opacify the pulmonary arteries. Thick section coronal MIP 3D reconstructions were performed on a separate workstation. FINDINGS: No intraluminal filling defects, pulmonary arterial tree. Thoracic aorta normal in course and caliber. Cardiac size normal. No pericardial effusion. Right and left lung show multifocal, patchy, predominantly peripheral areas of groundglass opacity. No nodules and no masses. No pleural effusion, pneumothorax, consolidation. 9 x 10 mm right hilar lymph node. 10 mm left hilar lymph node. No axillary no mediastinal lymph node enlargement. Limited imaging upper abdomen shows no gross anomaly. No osteoblastic, no osteolytic lesions. IMPRESSION: No CT evidence pulmonary embolism. Commonly reported imaging features of covid 19 pneumonia are identified. Other processes such as influenza pneumonia and organizing pneumonia, as can be seen with drug toxicity and connective tissue disease, can cause a similar imaging pattern. Borderline bilateral hilar lymph node enlargement. All CT scans at this facility use dose modulation, iterative reconstruction, and/or weight based dosing when appropriate to reduce radiation dose to as low as reasonably achievable. [place] Comprehensive Metabolic Pane ben 05-28-2020 Albumin [Mass/Vol] 3.9 g/dL 3.5 - 4.6 g/dL [place] ALP [Catalytic activity/Vol] 66 U/L 40 - 130 U/L [place] ALT [Catalytic activity/Vol] 26 U/L 0 - 33 U/L [place] Anion gap [Moles/Vol] 13 mmol/L [place], [place] AST [Catalytic activity/Vol] 23 U/L 0 - 35 U/L [place] Bilirubin Ql (U) 0.3 mg/dL 0.2 - 0.7 mg/dL [place] Calcium [Mass/Vol] 9.6 mg/dL 8.5 - 9.9 mg/dL [place] Chloride [Moles/Vol] 98 mmol/L [place], [place] CO2 [Moles/Vol] 25 mmol/L [place], [place] Creatinine [Mass/Vol] 0.54 mg/dL 0.5 - 0.9 mg/dL [place] GFR >60.0 >60 [place], [place] Comment on above: >60 mL/min/1.73m2 EG FR, calc. for ages 18 and older using the MDRD formula (not corrected for weight), is valid for stable renal function. GFR Non- >60.0 >60 [place] Comment on above: >60 mL/min/1.73m2 EG FR, calc. for ages 18 and older using the MDRD formula (not corrected for weight), is valid for stable renal function. Globulin (S) [Mass/Vol] 2.4 g/dL 2.3 - 3.5 g/dL [place] Glucose [Mass/Vol] 486 mg/dL Critically high 70 - 9 9 mg/dL [place] Interpretation and review of laboratory results Abnormal [place] Potassium [Moles/Vol] 4.4 mmol/L [place] Protein [Mass/Vol] 6.3 g/dL 6.3 - 8 g/dL [place] Sodium [Moles/Vol] 136 mmol/L [place], [place] Urea nitrogen [Mass/Vol] 16 mg/dL 6 - 20 mg/dL [place] Comprehensive Metabolic Pane l w/ Reflex to MGon 05-28-2020 Albumin [Mass/Vol] 3.7 g/dL 3.5 - 4.6 g/dL [place] ALP [Catalytic activity/Vol] 57 U/L 40 - 130 U/L [place] ALT [Catalytic activity/Vol] 28 U/L 0 - 33 U/L [place] Anion gap [Moles/Vol] 12 mmol/L [place], [place] AST [Catalytic activity/Vol] 24 U/L 0 - 35 U/L [place] Comment on above: Specimen hemolysis h as exceeded the interference as defined by Mariah. Value may be falsely increased. Suggest recollection if clinically indicated. Bilirubin Ql (U) <0.2 0.2 - 0.7 mg/dL [place] Calcium [Mass/Vol] 8.8 mg/dL 8.5 - 9.9 mg/dL [place], [place] Chloride [Moles/Vol] 102 mmol/L [place], [place] CO2 [Moles/Vol] 23 mmol/L [place], [place] Creatinine [Mass/Vol] 0.53 mg/dL 0.5 - 0.9 mg/dL [place], [place] GFR >60.0 >60 [place], [place] Comment on above: >60 mL/min/1.73m2 EG FR, calc. for ages 18 and older using the MDRD formula (not corrected for weight), is valid for stable renal function. GFR Non- >60.0 >60 [place] Comment on above: >60 mL/min/1.73m2 EG FR, calc. for ages 18 and older using the MDRD formula (not corrected for weight), is valid for stable renal function. Globulin (S) [Mass/Vol] 2.6 g/dL 2.3 - 3.5 g/dL [place] Glucose [Mass/Vol] 266 mg/dL High 70 - 99 mg/dL [place] Interpretation and review of laboratory results Abnormal [place] Potassium [Moles/Vol] 4.5 mmol/L [place], [place] Protein [Mass/Vol] 6.3 g/dL 6.3 - 8 g/dL [place] Sodium [Moles/Vol] 137 mmol/L [place], [place] Urea nitrogen [Mass/Vol] 13 mg/dL 6 - 20 mg/dL [place] D-Dimer, Quantitativeon 05-01 D-Dimer, Quant 0.59 Critically high [place], [place] Comment on above: VTE (DVT or PE) cut- off = 0.50 mg/L FEU Interpretation and review of laboratory results Abnormal [place] [facility] tel. [phone], Coag results called to and read back by SHALOM NO, 05/28/2020 05:45, by CLAIRE [place] Fibrinogenon 05-28-2020 Fibrinogen 335 mg/dL 235 - 507 mg/dL [place] Hemoglobin A1con 05-28-2020 HbA1c (Bld) [Mass fraction] 11.2 % High 4.8 - 5.9 % [place] Interpretation and review of laboratory results Abnormal [place], [place] Lactic Acid, Plasmaon 2019 Interpretation and review of laboratory results Abnormal [place] Lactate [Moles/Vol] 2.7 mmol/L High 0.5 - 2. 2 mmol/L [place], [place] Interpretation and review of laboratory results Abnormal [place] Lactate [Moles/Vol] 4.2 mmol/L Critically high 0.5 - 2.2 mmol/L [place] CALL [facility] tel. [phone], LACID results called to and read back byTIMMY FRANK, 05/28/2020 00:10, by [place] Magnesiumon 05-28-2020 Magnesium [Mass/Vol] 1.9 mg/dL 1.7 - 2 .4 mg/dL [place], [place] Otheron 05-28-2020 CALL [facility] tel. [phone], GLU results called to and read back by TIMMY FRANK, 05/28/2020 00:09, by [place] POCT Glucoseon 05-28-2020 Glucose [Mass/Vol] 350 mg/dL High 60 - 115 mg/dl [place] Interpretation and review of laboratory results Abnormal [place] Performed on ACCU-CHEK [place], [place] Glucose [Mass/Vol] 349 mg/dL High 60 - 115 mg/dl [place], [place] Interpretation and review of laboratory results Abnormal [place] Performed on [facility]-CHEK [place], [place] Glucose [Mass/Vol] 252 mg/dL High 60 - 115 mg/dl [place] Interpretation and review of laboratory results Abnormal [place] Performed on [facility]-CHEK [place] PROCALCITONINon 05-28-2020 Procalcitonin 0.07 ng/mL 0 - 0.15 ng/mL [place] Comment on above: Suspected Sepsis: Low likelihood of sepsis <.50 ng/mL Increased likelihood of sepsis 0.50-2.00 ng/mL Antibiotics encouraged High risk of sepsis/shock >2.00 ng/mL Antibiotics strongly encouraged Suspected Lower Respiratory Tract Infections: Low likelihood of bacterial infection <0.24 ng/mL Increased likelihood of bacterial infection >0.24 ng/mL Antibiotics encouraged With successful antibiotic therapy, PCT levels should decrease rapidly. (Half-life of 24 to 36 hours.) Procalcitonin values from samples collected within the first 6 hours of systemic infection may still be low. Retesting may be indicated. Values from day 1 and day 4 can be entered into the Change in Procalcitonin Calculator to determine the patient's Mortality Risk Prognosis ([email or web address]) In healthy neonates, plasma Procalcitonin (PCT) concentrations increase gradually after , reaching peak values at about 24 hours of age then decrease to normal values below 0.5 ng/mL by 48-72 hours of age. CALL [facility] tel. [phone], GLU results called to and read back by TIMMY FRANK, 05/28/2020 00:09, by [place] Sedimentation Rateon 020 Interpretation and review of laboratory results Abnormal [place], [place] Sed Rate 35 mm High 0 - 20 mm [place] CBC Auto Differentialon 11-2 Basophils (Bld) [#/Vol] 0.1 10*3/uL 0 - 0.2 K/uL [place], [place] Basophils/100 WBC (Bld) 1.5 % [place] Eosinophils (Bld) [#/Vol] 0.3 10*3/uL 0 - 0.7 K/uL [place], [place] Eosinophils/100 WBC (Bld) 5.8 % [place] Erythrocyte distribution width (RBC) [Ratio] 15.2 % High 11.5 - 14.5 % [place] Hematocrit (Bld) [Volume fraction] 35.8 % Low 37 - 47 % [place] Hemoglobin (Bld) [Mass/Vol] 12.0 g/dL 12 - 16 g/dL [place] Interpretation and review of laboratory results Abnormal [place] Lymphocytes (Bld) [#/Vol] 2.3 10*3/uL 1 - 4.8 K/uL [place], [place] Lymphocytes/100 WBC (Bld) 49.2 % [place] MCH (RBC) [Entitic mass] 28.9 pg 27 - 31.3 pg [place], [place] MCHC (RBC) [Mass/Vol] 33.4 % 33 - 37 % [place] MCV (RBC) [Entitic vol] 86.6 fL 82 - 100 fL [place], [place] Monocytes (Bld) [#/Vol] 0.2 10*3/uL 0.2 - 0.8 K/uL [place], [place] Monocytes/100 WBC (Bld) 5.0 % [place] Neutrophils Absolute 1.8 K/uL 1.4 - 6 .5 K/uL [place], [place] Neutrophils/100 WBC (Bld) 38.5 % [place] Platelets (Bld) [#/Vol] 161 10*3/uL 130 - 400 K/uL [place], [place] RBC (Bld) [#/Vol] 4.13 10*6/uL Low [place] WBC (Bld) [#/Vol] 4.7 10*3/uL Low 4.8 - 10.8 K/uL [place] Microscopic Urinalysison Bacteria, UA Negative Negative /HPF [place] Epithelial Cells, UA 6-10 [place], [place] Hyaline Casts, UA 1-3 [place], [place] RBC (U) [#/Vol] /uL [place], [place] WBC, UA 10-20 Abnormal [place], [place] Otheron 05-27-2020 Interpretation and review of laboratory results Abnormal [place] POCT CREATININEon 05-27-2020 Creatinine [Mass/Vol] 0.6 mg/dL [place], [place] Interpretation and review of laboratory results Normal [place] Urine Reflex to Cultureon Bilirubin Urine Negative Negative [place], [place] Blood, Urine LARGE Abnormal Negative [place], [place] Clarity, UA Clear Clear [place], [place] Color, UA RED Abnormal Straw/Clay ow [place], [place] Glucose, Ur >=1000 Abnormal Negative mg/dL [place] Ketones Ql (U) Negative Negative mg/dL [place] Leukocyte esterase Test strip Ql (U) TRACE Abnormal Negative [place], [place] Nitrite, Urine Negative Negative [place], [place] pH, UA 5.0 [place], [place] Protein (U) [Mass/Vol] Negative Negat isabella mg/dL [place] Specific [place], UA 1.033 [place], [place] Urine Reflex to Culture Yes [place] Urobilinogen, Urine 0.2 <2.0 E.U./dL [place] CBC Auto Differentialon 04-30 Basophils (Bld) [#/Vol] 0.1 10*3/uL 0 - 0.2 K/uL [place], [place] Basophils/100 WBC (Bld) 1.3 % [place] Eosinophils (Bld) [#/Vol] 0.1 10*3/uL 0 - 0.7 K/uL [place], [place] Eosinophils/100 WBC (Bld) 2 % [place] Erythrocyte distribution width (RBC) [Ratio] 15.2 % High 11.5 - 14.5 % [place] Hematocrit (Bld) [Volume fraction] 41.9 % 37 - 47 % [place] Hemoglobin (Bld) [Mass/Vol] 14.2 g/dL 12 - 16 g/dL [place] Interpretation and review of laboratory results Abnormal [place] Lymphocytes (Bld) [#/Vol] 2.9 10*3/uL 1 - 4.8 K/uL [place], [place] Lymphocytes/100 WBC (Bld) 38.8 % [place] MCH (RBC) [Entitic mass] 28.8 pg 27 - 31.3 pg [place] MCHC (RBC) [Mass/Vol] 33.8 % 33 - 37 % [place] MCV (RBC) [Entitic vol] 85.0 fL 82 - 100 fL [place], [place] Monocytes (Bld) [#/Vol] 0.5 10*3/uL 0.2 - 0.8 K/uL [place], [place] Monocytes/100 WBC (Bld) 6.9 % [place] Neutrophils Absolute 3.8 K/uL 1.4 - 6 .5 K/uL [place], [place] Neutrophils/100 WBC (Bld) 51.0 % [place] Platelets (Bld) [#/Vol] 222 10*3/uL 130 - 400 K/uL [place], [place] RBC (Bld) [#/Vol] 4.93 10*6/uL [place] WBC (Bld) [#/Vol] 7.4 10*3/uL 4.8 - 10.8 K/uL [place] Comprehensive Metabolic Pane ben 05-25-2020 Albumin [Mass/Vol] 4.3 g/dL 3.5 - 4.6 g/dL [place] ALP [Catalytic activity/Vol] 63 U/L 40 - 130 U/L [place] ALT [Catalytic activity/Vol] 25 U/L 0 - 33 U/L [place], [place] Anion gap [Moles/Vol] 13 mmol/L [place], [place] AST [Catalytic activity/Vol] 20 U/L 0 - 35 U/L [place] Bilirubin Ql (U) 0.4 mg/dL 0.2 - 0.7 mg/dL [place] Calcium [Mass/Vol] 9.9 mg/dL 8.5 - 9.9 mg/dL [place] Chloride [Moles/Vol] 99 mmol/L [place] CO2 [Moles/Vol] 29 [facility] [place] Creatinine [Mass/Vol] 0.56 mg/dL 0.5 - 0.9 mg/dL [place] GFR >60.0 >60 [place], [place] Comment on above: >60 mL/min/1.73m2 EG FR, calc. for ages 18 and older using the MDRD formula (not corrected for weight), is valid for stable renal function. GFR Non- >60.0 >60 [place] Comment on above: >60 mL/min/1.73m2 EG FR, calc. for ages 18 and older using the MDRD formula (not corrected for weight), is valid for stable renal function. Globulin (S) [Mass/Vol] 2.7 g/dL 2.3 - 3.5 g/dL [place] Glucose [Mass/Vol] 325 mg/dL High 70 - 99 mg/dL [place] Interpretation and review of laboratory results Abnormal [place] Potassium [Moles/Vol] 3.8 mmol/L [place], [place] Protein [Mass/Vol] 7.0 g/dL 6.3 - 8 g/dL [place] Sodium [Moles/Vol] 141 mmol/L [place], [place] Urea nitrogen [Mass/Vol] 14 mg/dL 6 - 20 mg/dL [place] D-Dimer, Quantitativeon 11- D-Dimer, Quant 0.43 [place], [place] Comment on above: VTE (DVT or PE) cut- off = 0.50 mg/L FEU Protime-INRon 05-25-2020 INR Coag (PPP) [Relative time] 0.9 {INR} [place] PT Coag (PPP) [Time] 12.4 s [place], [place] CBC Auto Differentialon 04-30 Basophils (Bld) [#/Vol] 0.1 10*3/uL 0 - 0.2 K/uL [place] Basophils/100 WBC (Bld) 0.9 % [place] Eosinophils (Bld) [#/Vol] 0.2 10*3/uL 0 - 0.7 K/uL [place] Eosinophils/100 WBC (Bld) 2.4 % [place] Erythrocyte distribution width (RBC) [Ratio] 14.3 % 11.5 - 14.5 % [place] Hematocrit (Bld) [Volume fraction] 41.4 % 37 - 47 % [place] Hemoglobin (Bld) [Mass/Vol] 13.8 g/dL 12 - 16 g/dL [place] Lymphocytes (Bld) [#/Vol] 2.6 10*3/uL 1 - 4.8 K/uL [place] Lymphocytes/100 WBC (Bld) 30.1 % [place] MCH (RBC) [Entitic mass] 28.2 pg 27 - 31.3 pg [place] MCHC (RBC) [Mass/Vol] 33.3 % 33 - 37 % [place] MCV (RBC) [Entitic vol] 84.8 fL 82 - 100 fL [place], [place] Monocytes (Bld) [#/Vol] 0.8 10*3/uL 0.2 - 0.8 K/uL [place] Monocytes/100 WBC (Bld) 9.0 % [place] Neutrophils Absolute 5.1 K/uL 1.4 - 6 .5 K/uL [place], [place] Neutrophils/100 WBC (Bld) 57.6 % [place] Platelets (Bld) [#/Vol] 365 10*3/uL 130 - 400 K/uL [place], [place] RBC (Bld) [#/Vol] 4.88 10*6/uL [place] WBC (Bld) [#/Vol] 8.8 10*3/uL 4.8 - 10.8 K/uL [place] Collection has been rescheduled by SAMMIE at 05/18/2020 07:59 Reason: Ce back later [place] D-Dimer, Quantitativeon 04-30 D-Dimer, Quant 0.45 [place], [place] Comment on above: VTE (DVT or PE) cut- off = 0.50 mg/L FEU Collection has been rescheduled by SAMMIE at 05/18/2020 07:59 Reason: Ce back later [place] Ferritinon 05-18-2020 Ferritin [Mass/Vol] 81.0 ng/mL 13 - 150 ng/mL [place] Collection has been rescheduled by SAMMIE at 05/18/2020 07:59 Reason: Ce back later [place] High sensitivity CRPon 05-18 CRP High Sensitivity 1.8 mg/L 0 - 5 mg/L [place], [place] Magnesiumon 05-18-2020 Magnesium [Mass/Vol] 1.9 mg/dL 1.7 - 2 .4 mg/dL [place], [place] Otheron 05-18-2020 Collection has been rescheduled by SAMMIE at 05/18/2020 07:59 Reason: Ce back later [place] POCT Glucoseon 05-18-2020 Glucose [Mass/Vol] 176 mg/dL High 60 - 115 mg/dl [place] Interpretation and review of laboratory results Abnormal [place] Performed on [facility]U-CHEK [place] Glucose [Mass/Vol] 252 mg/dL High 60 - 115 mg/dl [place] Interpretation and review of laboratory results Abnormal [place] Performed on [facility]-CHEK [place] Glucose [Mass/Vol] 170 mg/dL High 60 - 115 mg/dl [place] Interpretation and review of laboratory results Abnormal [place] Performed on [facility]-[place] [place] RENAL FUNCTION PANELon 05-18 Albumin [Mass/Vol] 3.5 g/dL 3.5 - 4.6 g/dL [place] Anion gap [Moles/Vol] 13 mmol/L [place], [place] Calcium [Mass/Vol] 9.5 mg/dL 8.5 - 9.9 mg/dL [place] Chloride [Moles/Vol] 97 mmol/L [place], [place] CO2 [Moles/Vol] 29 mmol/L [place], [place] Creatinine [Mass/Vol] 0.61 mg/dL 0.5 - 0.9 mg/dL [place] GFR >60.0 >60 [place], [place] Comment on above: >60 mL/min/1.73m2 EG FR, calc. for ages 18 and older using the MDRD formula (not corrected for weight), is valid for stable renal function. GFR Non- >60.0 >60 [place] Comment on above: >60 mL/min/1.73m2 EG FR, calc. for ages 18 and older using the MDRD formula (not corrected for weight), is valid for stable renal function. Glucose [Mass/Vol] 270 mg/dL High 70 - 99 mg/dL [place] Interpretation and review of laboratory results Abnormal [place] Phosphate [Mass/Vol] 3.3 mg/dL 2.3 - 4 .8 mg/dL [place] Potassium [Moles/Vol] 4.0 mmol/L [place], [place] Sodium [Moles/Vol] 139 mmol/L [place], [place] Urea nitrogen [Mass/Vol] 23 mg/dL High 6 - 20 mg/dL [place], [place] CBC Auto Differentialon 04-29 Basophils (Bld) [#/Vol] 0.1 10*3/uL 0 - 0.2 K/uL [place] Basophils/100 WBC (Bld) 0.7 % [place] Eosinophils (Bld) [#/Vol] 0.1 10*3/uL 0 - 0.7 K/uL [place], [place] Eosinophils/100 WBC (Bld) 1.5 % [place] Erythrocyte distribution width (RBC) [Ratio] 14.6 % High 11.5 - 14.5 % [place] Hematocrit (Bld) [Volume fraction] 45.8 % 37 - 47 % [place] Hemoglobin (Bld) [Mass/Vol] 14.5 g/dL 12 - 16 g/dL [place] Interpretation and review of laboratory results Abnormal [place] Lymphocytes (Bld) [#/Vol] 2.9 10*3/uL 1 - 4.8 K/uL [place] Lymphocytes/100 WBC (Bld) 39.1 % [place] MCH (RBC) [Entitic mass] 27.6 pg 27 - 31.3 pg [place] MCHC (RBC) [Mass/Vol] 31.7 % Low 33 - 37 % [place] MCV (RBC) [Entitic vol] 87.1 fL 82 - 100 fL [place], [place] Monocytes (Bld) [#/Vol] 0.8 10*3/uL 0.2 - 0.8 K/uL [place], [place] Monocytes/100 WBC (Bld) 10.0 % [place] Neutrophils Absolute 3.7 K/uL 1.4 - 6 .5 K/uL [place] Neutrophils/100 WBC (Bld) 48.7 % [place] Platelets (Bld) [#/Vol] 341 10*3/uL 130 - 400 K/uL [place] RBC (Bld) [#/Vol] 5.26 10*6/uL [place] WBC (Bld) [#/Vol] 7.5 10*3/uL 4.8 - 10.8 K/uL [place] [facility] 06:56 Reason: Failed attempt at venipuncture [place] D-Dimer, Quantitativeon - D-Dimer, Quant 0.52 Critically high [place] Comment on above: VTE (DVT or PE) cut- off = 0.50 mg/L FEU Interpretation and review of laboratory results Abnormal [place] [facility] tel. [phone], DIMER results called to and read back by Belgica Carpenter, 05/17/2020 08:39, by RAKESH Collection has been rescheduled by [facility] at 05/17/2020 06:56 Reason: Failed attempt at venipuncture [place] Ferritinon 05-17-2020 Ferritin [Mass/Vol] 77.0 ng/mL 13 - 150 ng/mL [place] Collection has been rescheduled by [facility] at 05/17/2020 06:56 Reason: Failed attempt at venipuncture [place] High sensitivity CRPon 05-17 CRP High Sensitivity 1.4 mg/L 0 - 5 mg/L [place] Magnesiumon 05-17-2020 Magnesium [Mass/Vol] 2.2 mg/dL 1.7 - 2 .4 mg/dL [place], [place] Otheron 05-17-2020 Collection has been rescheduled by [facility] at 05/17/2020 06:56 Reason: Failed attempt at venipuncture [place] POCT Glucoseon 05-17-2020 Glucose [Mass/Vol] 222 mg/dL High 60 - 115 mg/dl [place] Interpretation and review of laboratory results Abnormal [place] Glucose [Mass/Vol] 203 mg/dL High 60 - 115 mg/dl [place] Interpretation and review of laboratory results Abnormal [place] Performed on ACCU-CHEK [place] Comment on above: Sliding Scale Glucose [Mass/Vol] 239 mg/dL High 60 - 115 mg/dl [place] Interpretation and review of laboratory results Abnormal [place] Performed on ACCU-CHEK [place] Comment on above: Sliding Scale Glucose [Mass/Vol] 141 mg/dL High 60 - 115 mg/dl [place] Interpretation and review of laboratory results Abnormal [place] Performed on ACCU-CHEK [place] RENAL FUNCTION PANELon 05-17 Albumin [Mass/Vol] 3.6 g/dL 3.5 - 4.6 g/dL [place] Anion gap [Moles/Vol] 10 mmol/L [place], [place] Calcium [Mass/Vol] 9.3 mg/dL 8.5 - 9.9 mg/dL [place] Chloride [Moles/Vol] 95 mmol/L [place], [place] CO2 [Moles/Vol] 30 mmol/L [place], [place] Creatinine [Mass/Vol] 0.49 mg/dL Low 0.5 - 0.9 mg/dL [place] GFR >60.0 >60 [place], [place] Comment on above: >60 mL/min/1.73m2 EG FR, calc. for ages 18 and older using the MDRD formula (not corrected for weight), is valid for stable renal function. GFR Non- >60.0 >60 [place], [place] Comment on above: >60 mL/min/1.73m2 EG FR, calc. for ages 18 and older using the MDRD formula (not corrected for weight), is valid for stable renal function. Glucose [Mass/Vol] 141 mg/dL High 70 - 99 mg/dL [place] Interpretation and review of laboratory results Abnormal [place] Phosphate [Mass/Vol] 4.4 mg/dL 2.3 - 4 .8 mg/dL [place] Potassium [Moles/Vol] 4.3 mmol/L [place] Sodium [Moles/Vol] 135 mmol/L [place] Urea nitrogen [Mass/Vol] 26 mg/dL High 6 - 20 mg/dL [place] CBC Auto Differentialon 04-29 Basophils (Bld) [#/Vol] 0.2 10*3/uL 0 - 0.2 K/uL [place] Basophils/100 WBC (Bld) 1.7 % [place] Eosinophils (Bld) [#/Vol] 0.0 10*3/uL 0 - 0.7 K/uL [place] Eosinophils/100 WBC (Bld) 0.2 % [place] Erythrocyte distribution width (RBC) [Ratio] 14.2 % 11.5 - 14.5 % [place] Hematocrit (Bld) [Volume fraction] 41.9 % 37 - 47 % [place] Hemoglobin (Bld) [Mass/Vol] 14.2 g/dL 12 - 16 g/dL [place] Interpretation and review of laboratory results Abnormal [place] Lymphocytes (Bld) [#/Vol] 2.9 10*3/uL 1 - 4.8 K/uL [place] Lymphocytes/100 WBC (Bld) 21.9 % [place] MCH (RBC) [Entitic mass] 28.6 pg 27 - 31.3 pg [place] MCHC (RBC) [Mass/Vol] 33.9 % 33 - 37 % [place] MCV (RBC) [Entitic vol] 84.5 fL 82 - 100 fL [place] Monocytes (Bld) [#/Vol] 0.9 10*3/uL High 0.2 - 0.8 K/uL [place] Monocytes/100 WBC (Bld) 6.5 % [place] Neutrophils Absolute 9.3 K/uL High 1.4 - 6 .5 K/uL [place] Neutrophils/100 WBC (Bld) 69.7 % [place] Platelets (Bld) [#/Vol] 443 10*3/uL High 130 - 400 K/uL [place] RBC (Bld) [#/Vol] 4.96 10*6/uL [place] WBC (Bld) [#/Vol] 13.3 10*3/uL High 4.8 - 10.8 K/uL [place] D-Dimer, Quantitativeon 11 D-Dimer, Quant 0.4 [place] Comment on above: VTE (DVT or PE) cut- off = 0.50 mg/L FEU Ferritinon 05-16-2020 Ferritin [Mass/Vol] 319.3 ng/mL High 13 - 150 ng/mL [place] Interpretation and review of laboratory results Abnormal [place] High sensitivity CRPon 05-16 CRP High Sensitivity 1.9 mg/L 0 - 5 mg/L [place] Magnesiumon 05-16-2020 Magnesium [Mass/Vol] 2.1 mg/dL 1.7 - 2 .4 mg/dL [place] POCT Glucoseon 05-16-2020 Glucose [Mass/Vol] 336 mg/dL High 60 - 115 mg/dl [place] Interpretation and review of laboratory results Abnormal [place] [facility] [place] Glucose [Mass/Vol] 271 mg/dL High 60 - 115 mg/dl [place] Interpretation and review of laboratory results Abnormal [place] Performed [place] [facility]-CHEK [place] Glucose [Mass/Vol] 234 mg/dL High 60 - 115 mg/dl [place] Interpretation and review of laboratory results Abnormal [place] Performed [place] [facility] [place] Glucose [Mass/Vol] 242 mg/dL High 60 - 115 mg/dl [place] Interpretation and review of laboratory results Abnormal [place] Performed [place] [facility] [place] RENAL FUNCTION PANELon 05-16 Albumin [Mass/Vol] 3.7 g/dL 3.5 - 4.6 g/dL [place] Anion gap [Moles/Vol] 21 mmol/L [place] Calcium [Mass/Vol] 10.1 mg/dL High 8.5 - 9.9 mg/dL [place] Chloride [Moles/Vol] 96 mmol/L [place] CO2 [Moles/Vol] 21 mmol/L [place] Creatinine [Mass/Vol] 0.53 mg/dL 0.5 - 0.9 mg/dL [place] GFR >60.0 >60 [place] Comment on above: >60 mL/min/1.73m2 EG FR, calc. for ages 18 and older using the MDRD formula (not corrected for weight), is valid for stable renal function. GFR Non- >60.0 >60 [place] Comment on above: >60 mL/min/1.73m2 EG FR, calc. for ages 18 and older using the MDRD formula (not corrected for weight), is valid for stable renal function. Glucose [Mass/Vol] 228 mg/dL High 70 - 99 mg/dL [place] Interpretation and review of laboratory results Abnormal [place] Phosphate [Mass/Vol] 4.4 mg/dL 2.3 - 4 .8 mg/dL [place] Potassium [Moles/Vol] 4.6 mmol/L [place] Sodium [Moles/Vol] 138 mmol/L [place] Urea nitrogen [Mass/Vol] 29 mg/dL High 6 - 20 mg/dL [place] CBC Auto Differentialon 04-29 Anisocytosis Ql (Bld) 1+ [place] Basophils (Bld) [#/Vol] 0.0 10*3/uL 0 - 0.2 K/uL [place] Basophils/100 WBC (Bld) 0.5 % [place] Eosinophils (Bld) [#/Vol] 0.0 10*3/uL 0 - 0.7 K/uL [place] Eosinophils/100 WBC (Bld) 0.1 % [place] Erythrocyte distribution width (RBC) [Ratio] 14.1 % 11.5 - 14.5 % [place] Hematocrit (Bld) [Volume fraction] 41.8 % 37 - 47 % [place] Hemoglobin (Bld) [Mass/Vol] 14.0 g/dL 12 - 16 g/dL [place] Interpretation and review of laboratory results Abnormal [place] Lymphocytes (Bld) [#/Vol] 1.6 10*3/uL 1 - 4.8 K/uL [place] Lymphocytes/100 WBC (Bld) 14.0 % [place] MCH (RBC) [Entitic mass] 27.7 pg 27 - 31.3 pg [place] MCHC (RBC) [Mass/Vol] 33.5 % 33 - 37 % [place] MCV (RBC) [Entitic vol] 82.7 fL 82 - 100 fL [place] Microcytes 1+ [place] Monocytes (Bld) [#/Vol] 1.4 10*3/uL High 0.2 - 0.8 K/uL [place] Monocytes/100 WBC (Bld) 12.0 % [place] Neutrophils Absolute 8.7 K/uL High 1.4 - 6 .5 K/uL [place] Neutrophils/100 WBC (Bld) 74.0 % [place] Platelets (Bld) [#/Vol] 412 10*3/uL High 130 - 400 K/uL [place] Poikilocytes 1+ [place] RBC (Bld) [#/Vol] 5.05 10*6/uL [place] WBC (Bld) [#/Vol] 11.7 10*3/uL High 4.8 - 10.8 K/uL [place] Collection has been rescheduled by SAMMIE at 05/15/2020 06:50 Reason: Failed attempt at venipuncture [place] D-Dimer, Quantitativeon 04-29 D-Dimer, Quant 0.47 [place], [place] Comment on above: VTE (DVT or PE) cut- off = 0.50 mg/L FEU Collection has been rescheduled by SAMMIE at 05/15/2020 06:50 Reason: Failed attempt at venipuncture [place] Ferritinon 05-15-2020 Ferritin [Mass/Vol] 60.6 ng/mL 13 - 150 ng/mL [place] Collection has been rescheduled by SAMMIE at 05/15/2020 06:50 Reason: Failed attempt at venipuncture [place] High sensitivity CRPon 05-15 CRP High Sensitivity 2.9 mg/L 0 - 5 mg/L [place] Collection has been rescheduled by SAMMIE at 05/15/2020 06:50 Reason: Failed attempt at venipuncture [place] Magnesiumon 05-15-2020 Magnesium [Mass/Vol] 1.9 mg/dL 1.7 - 2 .4 mg/dL [place] Otheron 05-15-2020 Collection has been rescheduled by SAMMIE at 05/15/2020 06:50 Reason: Failed attempt at venipuncture [place] POCT Glucoseon 05-15-2020 Glucose [Mass/Vol] 317 mg/dL High 60 - 115 mg/dl [place] Interpretation and review of laboratory results Abnormal [place] [facility] [place] Glucose [Mass/Vol] 338 mg/dL High 60 - 115 mg/dl [place] Interpretation and review of laboratory results Abnormal [place] [facility] [place] Glucose [Mass/Vol] 319 mg/dL High 60 - 115 mg/dl [place] Interpretation and review of laboratory results Abnormal [place] [facility] [place] Glucose [Mass/Vol] 191 mg/dL High 60 - 115 mg/dl [place] Interpretation and review of laboratory results Abnormal [place] Performed [place] [facility] [place] RENAL FUNCTION PANELon 05-15 Albumin [Mass/Vol] 4 g/dL 3.5 - 4.6 g/dL [place] Anion gap [Moles/Vol] 8 mmol/L [place] Calcium [Mass/Vol] 9.9 mg/dL 8.5 - 9.9 mg/dL [place] Chloride [Moles/Vol] 90 mmol/L Low [place] CO2 [Moles/Vol] 33 mmol/L High [facility] [place] Creatinine [Mass/Vol] 0.52 mg/dL 0.5 - 0.9 mg/dL [place] GFR >60.0 >60 [place] Comment on above: >60 mL/min/1.73m2 EG FR, calc. for ages 18 and older using the MDRD formula (not corrected for weight), is valid for stable renal function. GFR Non- >60.0 >60 [place] Comment on above: >60 mL/min/1.73m2 EG FR, calc. for ages 18 and older using the MDRD formula (not corrected for weight), is valid for stable renal function. Glucose [Mass/Vol] 213 mg/dL High 70 - 99 mg/dL [place] Interpretation and review of laboratory results Abnormal [place] Phosphate [Mass/Vol] 3.6 mg/dL 2.3 - 4 .8 mg/dL [place] Potassium [Moles/Vol] 4.0 mmol/L [place] Sodium [Moles/Vol] 131 mmol/L [place] Urea nitrogen [Mass/Vol] 25 mg/dL High 6 - 20 mg/dL [place] CBC Auto Differentialon 04-29 Basophils (Bld) [#/Vol] 0.0 10*3/uL 0 - 0.2 K/uL [place] Basophils/100 WBC (Bld) 0.2 % [place] Eosinophils (Bld) [#/Vol] 0.0 10*3/uL 0 - 0.7 K/uL [place] Eosinophils/100 WBC (Bld) 0.5 % [place] Erythrocyte distribution width (RBC) [Ratio] 14.2 % 11.5 - 14.5 % [place] Hematocrit (Bld) [Volume fraction] 40.8 % 37 - 47 % [place] Hemoglobin (Bld) [Mass/Vol] 13.5 g/dL 12 - 16 g/dL [place] Lymphocytes (Bld) [#/Vol] 1.8 10*3/uL 1 - 4.8 K/uL [place] Lymphocytes/100 WBC (Bld) 22.1 % [place] MCH (RBC) [Entitic mass] 27.3 pg 27 - 31.3 pg [place] MCHC (RBC) [Mass/Vol] 33.1 % 33 - 37 % [place] MCV (RBC) [Entitic vol] 82.3 fL 82 - 100 fL [place] Monocytes (Bld) [#/Vol] 0.8 10*3/uL 0.2 - 0.8 K/uL [place] Monocytes/100 WBC (Bld) 10.0 % [place] Neutrophils Absolute 5.6 K/uL 1.4 - 6 .5 K/uL [place] Neutrophils/100 WBC (Bld) 67.2 % [place] Platelets (Bld) [#/Vol] 395 10*3/uL 130 - 400 K/uL [place] RBC (Bld) [#/Vol] 4.96 10*6/uL [place] WBC (Bld) [#/Vol] 8.3 10*3/uL 4.8 - 10.8 K/uL [place] D-Dimer, Quantitativeon 04-29 D-Dimer, Quant 0.45 [place] Comment on above: VTE (DVT or PE) cut- off = 0.50 mg/L FEU Ferritinon 05-14-2020 Ferritin [Mass/Vol] 53.2 ng/mL 13 - 150 ng/mL [place] High sensitivity CRPon 05-14 CRP High Sensitivity 4.4 mg/L 0 - 5 mg/L [place] Magnesiumon 05-14-2020 Magnesium [Mass/Vol] 1.9 mg/dL 1.7 - 2 .4 mg/dL [place] POCT Glucoseon 05-14-2020 Glucose [Mass/Vol] 270 mg/dL High 60 - 115 mg/dl [place] Interpretation and review of laboratory results Abnormal [place] Performed on [facility]K [place] Glucose [Mass/Vol] 227 mg/dL High 60 - 115 mg/dl [place] Interpretation and review of laboratory results Abnormal [place] Performed on [facility]K [place] Glucose [Mass/Vol] 311 mg/dL High 60 - 115 mg/dl [place] Interpretation and review of laboratory results Abnormal [place] Performed on ACCU-CHEK [place] Glucose [Mass/Vol] 130 mg/dL High 60 - 115 mg/dl [place] Interpretation and review of laboratory results Abnormal [place] Performed on ACCU-CHEK [place] RENAL FUNCTION PANELon 05-14 Albumin [Mass/Vol] 3.7 g/dL 3.5 - 4.6 g/dL [place] Anion gap [Moles/Vol] 10 mmol/L [place] Calcium [Mass/Vol] 9.5 mg/dL 8.5 - 9.9 mg/dL [place] Chloride [Moles/Vol] 96 mmol/L [place] CO2 [Moles/Vol] 33 mmol/L [place] Creatinine [Mass/Vol] 0.6 mg/dL 0.5 - 0.9 mg/dL [place] GFR >60.0 >60 [place] Comment on above: >60 mL/min/1.73m2 EG FR, calc. for ages 18 and older using the MDRD formula (not corrected for weight), is valid for stable renal function. GFR Non- >60.0 >60 [place] Comment on above: >60 mL/min/1.73m2 EG FR, calc. for ages 18 and older using the MDRD formula (not corrected for weight), is valid for stable renal function. Glucose [Mass/Vol] 135 mg/dL High 70 - 99 mg/dL [place] Interpretation and review of laboratory results Abnormal [place] Phosphate [Mass/Vol] 4.4 mg/dL 2.3 - 4 .8 mg/dL [place] Potassium [Moles/Vol] 3.6 mmol/L [place] Sodium [Moles/Vol] 139 mmol/L [place] Urea nitrogen [Mass/Vol] 27 mg/dL High 6 - 20 mg/dL [place] CBC Auto Differentialon 04-29 Basophils (Bld) [#/Vol] 0.0 10*3/uL 0 - 0.2 K/uL [place] Basophils/100 WBC (Bld) 0.1 % [place] Eosinophils (Bld) [#/Vol] 0.1 10*3/uL 0 - 0.7 K/uL [place] Eosinophils/100 WBC (Bld) 0.8 % [place] Erythrocyte distribution width (RBC) [Ratio] 14.4 % 11.5 - 14.5 % [place] Hematocrit (Bld) [Volume fraction] 40.0 % 37 - 47 % [place] Hemoglobin (Bld) [Mass/Vol] 13.6 g/dL 12 - 16 g/dL [place] Interpretation and review of laboratory results Abnormal [place] Lymphocytes (Bld) [#/Vol] 1.5 10*3/uL 1 - 4.8 K/uL [place] Lymphocytes/100 WBC (Bld) 16.9 % [place] MCH (RBC) [Entitic mass] 27.9 pg 27 - 31.3 pg [place] MCHC (RBC) [Mass/Vol] 34.1 % 33 - 37 % [place] MCV (RBC) [Entitic vol] 81.7 fL Low 82 - 100 fL [place] Monocytes (Bld) [#/Vol] 0.9 10*3/uL High 0.2 - 0.8 K/uL [place] Monocytes/100 WBC (Bld) 10.2 % [place] Neutrophils Absolute 6.4 K/uL 1.4 - 6 .5 K/uL [place] Neutrophils/100 WBC (Bld) 72.0 % [place] Platelets (Bld) [#/Vol] 415 10*3/uL High 130 - 400 K/uL [place] RBC (Bld) [#/Vol] 4.89 10*6/uL [place] WBC (Bld) [#/Vol] 8.9 10*3/uL 4.8 - 10.8 K/uL [place] D-Dimer, Quantitativeon 04-29 D-Dimer, Quant 0.74 Critically high [place] Comment on above: VTE (DVT or PE) cut- off = 0.50 mg/L FEU Interpretation and review of laboratory results Abnormal [place] CALL [facility] LC5W tel. [phone], D-dimer called to and read back by Clare Rueda LPN, 05/13/2020 09:21, by MIHAI [place] Ferritinon 05-13-2020 Ferritin [Mass/Vol] 50.3 ng/mL 13 - 150 ng/mL [place] High sensitivity CRPon 05-13 CRP High Sensitivity 7.1 mg/L High 0 - 5 mg/L [place] Interpretation and review of laboratory results Abnormal [place] Magnesiumon 05-13-2020 Magnesium [Mass/Vol] 1.8 mg/dL 1.7 - 2 .4 mg/dL [place] POCT Glucoseon 05-13-2020 Glucose [Mass/Vol] 328 mg/dL High 60 - 115 mg/dl [place] Interpretation and review of laboratory results Abnormal [place] [facility] [place] Comment on above: Notified RN or MD Glucose [Mass/Vol] 313 mg/dL High 60 - 115 mg/dl [place] Interpretation and review of laboratory results Abnormal [place] Performed [place] ACCU-CHEK [place] Glucose [Mass/Vol] 311 mg/dL High 60 - 115 mg/dl [place] Interpretation and review of laboratory results Abnormal [place] Performed [place] [facility]-CHEK [place] Glucose [Mass/Vol] 130 mg/dL High 60 - 115 mg/dl [place] Interpretation and review of laboratory results Abnormal [place] Performed on [facility]K [place] RENAL FUNCTION PANELon 05-13 Albumin [Mass/Vol] 3.7 g/dL 3.5 - 4.6 g/dL [place] Anion gap [Moles/Vol] 15 mmol/L [place] Calcium [Mass/Vol] 9.6 mg/dL 8.5 - 9.9 mg/dL [place] Chloride [Moles/Vol] 96 mmol/L [place] CO2 [Moles/Vol] 29 mmol/L [place] Creatinine [Mass/Vol] 0.56 mg/dL 0.5 - 0.9 mg/dL [place] GFR >60.0 >60 [place] Comment on above: >60 mL/min/1.73m2 EG FR, calc. for ages 18 and older using the MDRD formula (not corrected for weight), is valid for stable renal function. GFR Non- >60.0 >60 [place] Comment on above: >60 mL/min/1.73m2 EG FR, calc. for ages 18 and older using the MDRD formula (not corrected for weight), is valid for stable renal function. Glucose [Mass/Vol] 120 mg/dL High 70 - 99 mg/dL [place] Interpretation and review of laboratory results Abnormal [place] Phosphate [Mass/Vol] 3.8 mg/dL 2.3 - 4 .8 mg/dL [place] Potassium [Moles/Vol] 3.3 mmol/L Low [place] Sodium [Moles/Vol] 140 mmol/L [place] Urea nitrogen [Mass/Vol] 22 mg/dL High 6 - 20 mg/dL [place] CBC Auto Differentialon 04-29 Basophils (Bld) [#/Vol] 0.0 10*3/uL 0 - 0.2 K/uL [place] Basophils/100 WBC (Bld) 0.3 % [place] Eosinophils (Bld) [#/Vol] 0.1 10*3/uL 0 - 0.7 K/uL [place] Eosinophils/100 WBC (Bld) 1.1 % [place] Erythrocyte distribution width (RBC) [Ratio] 14.0 % 11.5 - 14.5 % [place] Hematocrit (Bld) [Volume fraction] 38.1 % 37 - 47 % [place] Hemoglobin (Bld) [Mass/Vol] 13.0 g/dL 12 - 16 g/dL [place] Lymphocytes (Bld) [#/Vol] 1.0 10*3/uL 1 - 4.8 K/uL [place] Lymphocytes/100 WBC (Bld) 14.5 % [place] MCH (RBC) [Entitic mass] 28.0 pg 27 - 31.3 pg [place] MCHC (RBC) [Mass/Vol] 34.1 % 33 - 37 % [place] MCV (RBC) [Entitic vol] 82.0 fL 82 - 100 fL [place] Monocytes (Bld) [#/Vol] 0.5 10*3/uL 0.2 - 0.8 K/uL [place] Monocytes/100 WBC (Bld) 8.2 % [place] Neutrophils Absolute 5.0 K/uL 1.4 - 6 .5 K/uL [place] Neutrophils/100 WBC (Bld) 75.9 % [place] Platelets (Bld) [#/Vol] 346 10*3/uL 130 - 400 K/uL [place] RBC (Bld) [#/Vol] 4.64 10*6/uL [place] WBC (Bld) [#/Vol] 6.6 10*3/uL 4.8 - 10.8 K/uL [place] D-Dimer, Quantitativeon 04-29 D-Dimer, Quant 0.51 Critically high [place] Comment on above: VTE (DVT or PE) cut- off = 0.50 mg/L FEU Interpretation and review of laboratory results Abnormal [place] [facility] LC5W tel. [phone], D-dimer called to and read back by Nurse Ventura Alcala, 05/12/2020 10:19, by MIHAI [place] Ferritinon 05-12-2020 Ferritin [Mass/Vol] 51.6 ng/mL 13 - 150 ng/mL [place] High sensitivity CRPon 05-12 CRP High Sensitivity 13.2 mg/L High 0 - 5 mg/L [place] Interpretation and review of laboratory results Abnormal [place] Magnesiumon 05-12-2020 Magnesium [Mass/Vol] 1.7 mg/dL 1.7 - 2 .4 mg/dL [place] POCT Glucoseon 05-12-2020 Glucose [Mass/Vol] 250 mg/dL High 60 - 115 mg/dl [place] Interpretation and review of laboratory results Abnormal [place] Performed [place] [facility]U-CHEK [place] Comment on above: Notified RN or MD Glucose [Mass/Vol] 223 mg/dL High 60 - 115 mg/dl [place] Interpretation and review of laboratory results Abnormal [place] [facility] [place] Glucose [Mass/Vol] 287 mg/dL High 60 - 115 mg/dl [place] Interpretation and review of laboratory results Abnormal [place] Performed [place] [facility]U-CHEK [place] Comment on above: Notified RN or MD Glucose [Mass/Vol] 201 mg/dL High 60 - 115 mg/dl [place] Interpretation and review of laboratory results Abnormal [place] Performed [place] [facility]K [place] XR CHEST PORTABLEon 05-12-20 20 Patchy opacities diffusely throughout both lungs, similar to prior. [place] Hemant, Chpo Incoming Radiant Results From [facility] - 05/12/2020 2:01 PM EST XR CHEST PORTABLE Clinical History: pneumonia, hypoxia U07.1 COVID-19 virus infection ICD10. Comparison: 05/08/2020 RESULT: Patchy opacities diffusely throughout both lungs, similar to prior. No pleural effusion. No pneumothorax. Normal pulmonary vascular pattern. Stable cardiomediastinal silhouette. No acute osseous findings. IMPRESSION: Patchy opacities diffusely throughout both lungs, similar to prior. [place] XR CHEST PORTABLE Clinical History: pneumonia, hypoxia U07.1 COVID-19 virus infection ICD10. Comparison: 05/08/2020 RESULT: Patchy opacities diffusely throughout both lungs, similar to prior. No pleural effusion. No pneumothorax. Normal pulmonary vascular pattern. Stable cardiomediastinal silhouette. No acute osseous findings. [place] Brain Natriuretic Peptideon 05-11-2020 Natriuretic peptide B (Bld) [Mass/Vol] 41 pg/mL [place] Comment on above: NT-pro BNP ACUTE Int erpretive Guidelines: Age Cutoff for Heart Failure Less than 50 yrs 450 pg/mL 50-75 yrs 900 pg/mL Greater than 75 yrs 1800 pg/mL NT-pro BNP NON-ACUTE Interpretive Guidelines: Age Reference Range Less than 74 yrs 0-125 pg/mL Greater than 74 yrs 0-450 pg/mL Other possible causes of an elevated NT-proBNP include: cardiac ischemia, acute coronary syndrome, COPD, pneumonia, atrial fibrillation, pulmonary emboli, pulmonary hypertension, pericarditis Reference: Summer Rueda et al. NT-proBNP testing for diagnosis and short-term prognosis in acute destabilized HF: an international pooled analysis of 1256 patients. Heart Journal. 2006;27:330-337 CBC Auto Differentialon 04-29 Basophils (Bld) [#/Vol] 0.0 10*3/uL 0 - 0.2 K/uL [place] Basophils/100 WBC (Bld) 0.4 % [place] Eosinophils (Bld) [#/Vol] 0.1 10*3/uL 0 - 0.7 K/uL [place] Eosinophils/100 WBC (Bld) 1.7 % [place] Erythrocyte distribution width (RBC) [Ratio] 14.2 % 11.5 - 14.5 % [place] Hematocrit (Bld) [Volume fraction] 37.9 % 37 - 47 % [place] Hemoglobin (Bld) [Mass/Vol] 12.6 g/dL 12 - 16 g/dL [place] Interpretation and review of laboratory results Abnormal [place] Lymphocytes (Bld) [#/Vol] 0.9 10*3/uL Low 1 - 4.8 K/uL [place] Lymphocytes/100 WBC (Bld) 14.5 % [place] MCH (RBC) [Entitic mass] 27.7 pg 27 - 31.3 pg [place] MCHC (RBC) [Mass/Vol] 33.3 % 33 - 37 % [place] MCV (RBC) [Entitic vol] 83.2 fL 82 - 100 fL [place] Monocytes (Bld) [#/Vol] 0.4 10*3/uL 0.2 - 0.8 K/uL [place] Monocytes/100 WBC (Bld) 6.8 % [place] Neutrophils Absolute 4.9 K/uL 1.4 - 6 .5 K/uL [place] Neutrophils/100 WBC (Bld) 76.6 % [place] Platelets (Bld) [#/Vol] 313 10*3/uL 130 - 400 K/uL [place] RBC (Bld) [#/Vol] 4.55 10*6/uL [place] WBC (Bld) [#/Vol] 6.4 10*3/uL 4.8 - 10.8 K/uL [place] Comprehensive Metabolic Pane ben 05-11-2020 Albumin [Mass/Vol] 3.3 g/dL Low 3.5 - 4.6 g/dL [place] ALP [Catalytic activity/Vol] 62 U/L 40 - 130 U/L [place] ALT [Catalytic activity/Vol] 8 U/L 0 - 33 U/L [place] Anion gap [Moles/Vol] 11 mmol/L [place] AST [Catalytic activity/Vol] 11 U/L 0 - 35 U/L [place] Bilirubin Ql (U) 0.4 mg/dL 0.2 - 0.7 mg/dL [place] Calcium [Mass/Vol] 9.2 mg/dL 8.5 - 9.9 mg/dL [place] Chloride [Moles/Vol] 96 mmol/L [place] CO2 [Moles/Vol] [facility] [place] [place] Creatinine [Mass/Vol] 0.49 mg/dL Low 0.5 - 0.9 mg/dL [place] GFR >60.0 >60 [place] Comment on above: >60 mL/min/1.73m2 EG FR, calc. for ages 18 and older using the MDRD formula (not corrected for weight), is valid for stable renal function. GFR Non- >60.0 >60 [place] Comment on above: >60 mL/min/1.73m2 EG FR, calc. for ages 18 and older using the MDRD formula (not corrected for weight), is valid for stable renal function. Globulin (S) [Mass/Vol] 3.1 g/dL 2.3 - 3.5 g/dL [place] Glucose [Mass/Vol] 224 mg/dL High 70 - 99 mg/dL [place] Interpretation and review of laboratory results Abnormal [place] Potassium [Moles/Vol] 3.9 mmol/L [place] Protein [Mass/Vol] 6.4 g/dL 6.3 - 8 g/dL [place] Sodium [Moles/Vol] 136 mmol/L [place] Urea nitrogen [Mass/Vol] 20 mg/dL 6 - 20 mg/dL [place] D-Dimer, Quantitativeon 04-29 D-Dimer, Quant 0.87 Critically high [place] Comment on above: VTE (DVT or PE) cut- off = 0.50 mg/L FEU Interpretation and review of laboratory results Abnormal [place] [facility] [id number] tel. [phone], Dimer results called to and read back by Shayna Watkins, 05/11/2020 09:18, by NICK [place] Ferritinon 05-11-2020 Ferritin [Mass/Vol] 107.8 ng/mL 13 - 150 ng/mL [place] High sensitivity CRPon 05-11 CRP High Sensitivity 39.1 mg/L High 0 - 5 mg/L [place] Interpretation and review of laboratory results Abnormal [place] Magnesiumon 05-11-2020 Magnesium [Mass/Vol] 1.7 mg/dL 1.7 - 2 .4 mg/dL [place] Otheron 05-11-2020 Interpretation and review of laboratory results Abnormal [place] Performed on [facility]-CHEK [place] Comment on above: Sliding Scale POCT Glucoseon 05-11-2020 Glucose [Mass/Vol] 300 mg/dL High 60 - 115 mg/dl [place] Interpretation and review of laboratory results Abnormal [place] Performed on [facility]-CHEK [place] Glucose [Mass/Vol] 337 mg/dL High 60 - 115 mg/dl [place] Glucose [Mass/Vol] 291 mg/dL High 60 - 115 mg/dl [place] Glucose [Mass/Vol] 209 mg/dL High 60 - 115 mg/dl [place] Interpretation and review of laboratory results Abnormal [place] Performed on [facility]K [place] CBC Auto Differentialon 04-29 Basophils (Bld) [#/Vol] 0.0 10*3/uL 0 - 0.2 K/uL [place] Basophils/100 WBC (Bld) 0.1 % [place] Eosinophils (Bld) [#/Vol] 0.1 10*3/uL 0 - 0.7 K/uL [place] Eosinophils/100 WBC (Bld) 1.3 % [place] Erythrocyte distribution width (RBC) [Ratio] 14.2 % 11.5 - 14.5 % [place] Hematocrit (Bld) [Volume fraction] 36.9 % Low 37 - 47 % [place] Hemoglobin (Bld) [Mass/Vol] 12.6 g/dL 12 - 16 g/dL [place] Interpretation and review of laboratory results Abnormal [place] Lymphocytes (Bld) [#/Vol] 0.9 10*3/uL Low 1 - 4.8 K/uL [place] Lymphocytes/100 WBC (Bld) 12.9 % [place] MCH (RBC) [Entitic mass] 27.6 pg 27 - 31.3 pg [place] MCHC (RBC) [Mass/Vol] 34.0 % 33 - 37 % [place] MCV (RBC) [Entitic vol] 81.2 fL Low 82 - 100 fL [place] Monocytes (Bld) [#/Vol] 0.4 10*3/uL 0.2 - 0.8 K/uL [place] Monocytes/100 WBC (Bld) 5.6 % [place] Neutrophils Absolute 5.8 K/uL 1.4 - 6 .5 K/uL [place] Neutrophils/100 WBC (Bld) 80.1 % [place] Platelets (Bld) [#/Vol] 277 10*3/uL 130 - 400 K/uL [place] RBC (Bld) [#/Vol] 4.55 10*6/uL [place] WBC (Bld) [#/Vol] 7.2 10*3/uL 4.8 - 10.8 K/uL [place] Collection has been rescheduled by LAURENT at 05/10/2020 06:35 Reason: Failed attempt at venipuncture [place] Comprehensive Metabolic Pane ben 05-10-2020 Albumin [Mass/Vol] 3.3 g/dL Low 3.5 - 4.6 g/dL [place] ALP [Catalytic activity/Vol] 71 U/L 40 - 130 U/L [place] ALT [Catalytic activity/Vol] 9 U/L 0 - 33 U/L [place] Anion gap [Moles/Vol] 17 mmol/L [place] AST [Catalytic activity/Vol] 16 U/L 0 - 35 U/L [place] Bilirubin Ql (U) 0.4 mg/dL 0.2 - 0.7 mg/dL [place] Calcium [Mass/Vol] 9.4 mg/dL 8.5 - 9.9 mg/dL [place] Chloride [Moles/Vol] 97 mmol/L [place] CO2 [Moles/Vol] 25 [facility] [place] [place] Creatinine [Mass/Vol] 0.45 mg/dL Low 0.5 - 0.9 mg/dL [place] GFR >60.0 >60 [place] Comment on above: >60 mL/min/1.73m2 EG FR, calc. for ages 18 and older using the MDRD formula (not corrected for weight), is valid for stable renal function. GFR Non- >60.0 >60 [place] Comment on above: >60 mL/min/1.73m2 EG FR, calc. for ages 18 and older using the MDRD formula (not corrected for weight), is valid for stable renal function. Globulin (S) [Mass/Vol] 3.8 g/dL High 2.3 - 3.5 g/dL [place] Glucose [Mass/Vol] 119 mg/dL High 70 - 99 mg/dL [place] Potassium [Moles/Vol] 3.7 mmol/L [place] Protein [Mass/Vol] 7.1 g/dL 6.3 - 8 g/dL [place] Sodium [Moles/Vol] 139 mmol/L [place] Urea nitrogen [Mass/Vol] 18 mg/dL 6 - 20 mg/dL [place] D-Dimer, Quantitativeon 04-29 D-Dimer, Quant 0.72 Critically high [place] Comment on above: VTE (DVT or PE) cut- off = 0.50 mg/L FEU CALL [facility] tel. [phone], dimer results called to and read back by shalom hunt, 05/10/2020 09:00, by KELLY Collection has been rescheduled by LAURENT at 05/10/2020 06:35 Reason: Failed attempt at venipuncture [place] Ferritinon 05-10-2020 Ferritin [Mass/Vol] 78.2 ng/mL 13 - 150 ng/mL [place] Collection has been rescheduled by LAURENT at 05/10/2020 06:35 Reason: Failed attempt at venipuncture [place] High sensitivity CRPon 05-10 CRP High Sensitivity 43 mg/L High 0 - 5 mg/L [place] Collection has been rescheduled by LAURENT at 05/10/2020 06:35 Reason: Failed attempt at venipuncture [place] Magnesiumon 05-10-2020 Magnesium [Mass/Vol] 1.7 mg/dL 1.7 - 2 .4 mg/dL [place] Otheron 05-10-2020 Interpretation and review of laboratory results Abnormal [place] Collection has been rescheduled by LAURENT at 05/10/2020 06:35 Reason: Failed attempt at venipuncture [place] Interpretation and review of laboratory results Abnormal [place] POCT Glucoseon 05-10-2020 Glucose [Mass/Vol] 358 mg/dL High 60 - 115 mg/dl [place] Interpretation and review of laboratory results Abnormal [place] [facility] [place] Comment on above: Notified RN or MD Glucose [Mass/Vol] 340 mg/dL High 60 - 115 mg/dl [place] Interpretation and review of laboratory results Abnormal [place] [facility] [place] Comment on above: Sliding Scale Glucose [Mass/Vol] 248 mg/dL High 60 - 115 mg/dl [place] Interpretation and review of laboratory results Abnormal [place] [facility] [place] Glucose [Mass/Vol] 119 mg/dL High 60 - 115 mg/dl [place] Performed [place] [facility] [place] CBC Auto Differentialon 04-29 Basophils (Bld) [#/Vol] 0.0 10*3/uL 0 - 0.2 K/uL [place] Basophils/100 WBC (Bld) 0.1 % [place] Eosinophils (Bld) [#/Vol] 0.0 10*3/uL 0 - 0.7 K/uL [place] Eosinophils/100 WBC (Bld) 0.1 % [place] Erythrocyte distribution width (RBC) [Ratio] 14.1 % 11.5 - 14.5 % [place] Hematocrit (Bld) [Volume fraction] 35.5 % Low 37 - 47 % [place] Hemoglobin (Bld) [Mass/Vol] 12.0 g/dL 12 - 16 g/dL [place] Interpretation and review of laboratory results Abnormal [place] Lymphocytes (Bld) [#/Vol] 0.6 10*3/uL Low 1 - 4.8 K/uL [place] Lymphocytes/100 WBC (Bld) 12.1 % [place] MCH (RBC) [Entitic mass] 27.8 pg 27 - 31.3 pg [place] MCHC (RBC) [Mass/Vol] 33.8 % 33 - 37 % [place] MCV (RBC) [Entitic vol] 82.3 fL 82 - 100 fL [place] Monocytes (Bld) [#/Vol] 0.3 10*3/uL 0.2 - 0.8 K/uL [place] Monocytes/100 WBC (Bld) 6.5 % [place] Neutrophils Absolute 4.4 K/uL 1.4 - 6 .5 K/uL [place] Neutrophils/100 WBC (Bld) 81.2 % [place] Platelets (Bld) [#/Vol] 260 10*3/uL 130 - 400 K/uL [place] RBC (Bld) [#/Vol] 4.32 10*6/uL [place] WBC (Bld) [#/Vol] 5.4 10*3/uL 4.8 - 10.8 K/uL [place] Comprehensive Metabolic Pane ben 05-09-2020 Albumin [Mass/Vol] 3.4 g/dL Low 3.5 - 4.6 g/dL [place] ALP [Catalytic activity/Vol] 73 U/L 40 - 130 U/L [place] ALT [Catalytic activity/Vol] 9 U/L 0 - 33 U/L [place] Anion gap [Moles/Vol] 13 mmol/L [place] AST [Catalytic activity/Vol] 13 U/L 0 - 35 U/L [place] Bilirubin Ql (U) 0.4 mg/dL 0.2 - 0.7 mg/dL [place] Calcium [Mass/Vol] 8.7 mg/dL 8.5 - 9.9 mg/dL [place] Chloride [Moles/Vol] 101 mmol/L [place] CO2 [Moles/Vol] 25 mmol/L [place] Creatinine [Mass/Vol] 0.39 mg/dL Low 0.5 - 0.9 mg/dL [place] GFR >60.0 >60 [place] Comment on above: >60 mL/min/1.73m2 EG FR, calc. for ages 18 and older using the MDRD formula (not corrected for weight), is valid for stable renal function. GFR Non- >60.0 >60 [place] Comment on above: >60 mL/min/1.73m2 EG FR, calc. for ages 18 and older using the MDRD formula (not corrected for weight), is valid for stable renal function. Globulin (S) [Mass/Vol] 3.2 g/dL 2.3 - 3.5 g/dL [place] Glucose [Mass/Vol] 204 mg/dL High 70 - 99 mg/dL [place] Interpretation and review of laboratory results Abnormal [place] Potassium [Moles/Vol] 3.3 mmol/L [place] Protein [Mass/Vol] 6.6 g/dL 6.3 - 8 g/dL [place] Sodium [Moles/Vol] 139 mmol/L [place] Urea nitrogen [Mass/Vol] 16 mg/dL 6 - 20 mg/dL [place] D-Dimer, Quantitativeon 04-29 D-Dimer, Quant 0.87 Critically high [place] Comment on above: VTE (DVT or PE) cut- off = 0.50 mg/L FEU Interpretation and review of laboratory results Abnormal [place] CALL [facility] tel. [phone], DIMER results called to and read back by Belgica Carpenter, 05/09/2020 08:25, by RAKESH [place] Ferritinon 05-09-2020 Ferritin [Mass/Vol] 70.3 ng/mL 13 - 150 ng/mL [place] High sensitivity CRPon 05-09 CRP High Sensitivity 41.6 mg/L High 0 - 5 mg/L [place] Interpretation and review of laboratory results Abnormal [place] Magnesiumon 05-09-2020 Magnesium [Mass/Vol] 1.7 mg/dL 1.7 - 2 .4 mg/dL [place] POCT Glucoseon 05-09-2020 Glucose [Mass/Vol] 266 mg/dL High 60 - 115 mg/dl [place] Interpretation and review of laboratory results Abnormal [place] [facility] [place] Glucose [Mass/Vol] 298 mg/dL High 60 - 115 mg/dl [place] Interpretation and review of laboratory results Abnormal [place] [facility] [place] Glucose [Mass/Vol] 222 mg/dL High 60 - 115 mg/dl [place] Interpretation and review of laboratory results Abnormal [place] [facility] Glucose [Mass/Vol] 196 mg/dL High 60 - 115 mg/dl [place] Interpretation and review of laboratory results Abnormal [place] [facility] [place] CBC Auto Differentialon 04-29 Basophils (Bld) [#/Vol] 0.0 10*3/uL 0 - 0.2 K/uL [place] Basophils/100 WBC (Bld) 0.1 % [place] Eosinophils (Bld) [#/Vol] 0.0 10*3/uL 0 - 0.7 K/uL [place] Eosinophils/100 WBC (Bld) 0 % [place] Erythrocyte distribution width (RBC) [Ratio] 14.2 % 11.5 - 14.5 % [place] Hematocrit (Bld) [Volume fraction] 36.7 % Low 37 - 47 % [place] Hemoglobin (Bld) [Mass/Vol] 12.1 g/dL 12 - 16 g/dL [place] Interpretation and review of laboratory results Abnormal [place] Lymphocytes (Bld) [#/Vol] 0.9 10*3/uL Low 1 - 4.8 K/uL [place] Lymphocytes/100 WBC (Bld) 19.4 % [place] MCH (RBC) [Entitic mass] 27.1 pg 27 - 31.3 pg [place] MCHC (RBC) [Mass/Vol] 32.9 % Low 33 - 37 % [place] MCV (RBC) [Entitic vol] 82.3 fL 82 - 100 fL [place] Monocytes (Bld) [#/Vol] 0.4 10*3/uL 0.2 - 0.8 K/uL [place] Monocytes/100 WBC (Bld) 9.1 % [place] Neutrophils Absolute 3.4 K/uL 1.4 - 6 .5 K/uL [place] Neutrophils/100 WBC (Bld) 71.4 % [place] Platelets (Bld) [#/Vol] 241 10*3/uL 130 - 400 K/uL [place] RBC (Bld) [#/Vol] 4.46 10*6/uL [place] WBC (Bld) [#/Vol] 4.8 10*3/uL 4.8 - 10.8 K/uL [place] Comprehensive Metabolic Pane ben 05-08-2020 Albumin [Mass/Vol] 3.2 g/dL Low 3.5 - 4.6 g/dL [place] ALP [Catalytic activity/Vol] 68 U/L 40 - 130 U/L [place] ALT [Catalytic activity/Vol] 10 U/L 0 - 33 U/L [place] Anion gap [Moles/Vol] 11 mmol/L [place] AST [Catalytic activity/Vol] 18 U/L 0 - 35 U/L [place] Bilirubin Ql (U) 0.3 mg/dL 0.2 - 0.7 mg/dL [place] Calcium [Mass/Vol] 8.5 mg/dL 8.5 - 9.9 mg/dL [place] Chloride [Moles/Vol] 100 mmol/L [place] CO2 [Moles/Vol] 25 mmol/L [place] Creatinine [Mass/Vol] 0.51 mg/dL 0.5 - 0.9 mg/dL [place] GFR >60.0 >60 [place] Comment on above: >60 mL/min/1.73m2 EG FR, calc. for ages 18 and older using the MDRD formula (not corrected for weight), is valid for stable renal function. GFR Non- >60.0 >60 [place] Comment on above: >60 mL/min/1.73m2 EG FR, calc. for ages 18 and older using the MDRD formula (not corrected for weight), is valid for stable renal function. Globulin (S) [Mass/Vol] 3.6 g/dL High 2.3 - 3.5 g/dL [place] Glucose [Mass/Vol] 169 mg/dL High 70 - 99 mg/dL [place] Interpretation and review of laboratory results Abnormal [place] Potassium [Moles/Vol] 3.7 mmol/L [place] Protein [Mass/Vol] 6.8 g/dL 6.3 - 8 g/dL [place] Sodium [Moles/Vol] 136 mmol/L [place] Urea nitrogen [Mass/Vol] 15 mg/dL 6 - 20 mg/dL [place] D-Dimer, Quantitativeon 04-29 D-Dimer, Quant 0.98 Critically high [place] Comment on above: VTE (DVT or PE) cut- off = 0.50 mg/L FEU Interpretation and review of laboratory results Abnormal [place] CALL [facility] tel. [phone], D dimer results called to and read back by Stephenie Britton, 05/08/2020 09:43, by AVINASH [place] Ferritinon 05-08-2020 Ferritin [Mass/Vol] 91.5 ng/mL 13 - 150 ng/mL [place] Hemoglobin A1con 05-08-2020 HbA1c (Bld) [Mass fraction] 11.6 % High 4.8 - 5.9 % [place] Interpretation and review of laboratory results Abnormal [place] High sensitivity CRPon 05-08 CRP High Sensitivity 12 mg/L High 0 - 5 mg/L [place] Interpretation and review of laboratory results Abnormal [place] Magnesiumon 05-08-2020 Magnesium [Mass/Vol] 1.8 mg/dL 1.7 - 2 .4 mg/dL [place] Otheron 05-08-2020 Dispense Status Blood Bank transfused [place] POCT Glucoseon 05-08-2020 Glucose [Mass/Vol] 410 mg/dL Critically high 60 - 1 15 mg/dl [place] Interpretation and review of laboratory results Abnormal [place] Performed [place] [facility] [place] Comment on above: Notified RN or MD Glucose [Mass/Vol] 208 mg/dL High 60 - 115 mg/dl [place] Interpretation and review of laboratory results Abnormal [place] Performed on [facility] [place] Glucose [Mass/Vol] 203 mg/dL High 60 - 115 mg/dl [place] Interpretation and review of laboratory results Abnormal [place] Performed on [facility] [place] Glucose [Mass/Vol] 166 mg/dL High 60 - 115 mg/dl [place] Interpretation and review of laboratory results Abnormal [place] Performed [place] [facility] [place] Comment on above: Notified RN or Prepare COVID-19 Convalescen t Plasma, 2 Unitson 05-08-2020 Blood product unit ID (Dose) [#] [id number] [place] Blood product unit ID (Dose) [#] [id number] [place] Description Blood Bank [id number] [place], [place] Description Blood Bank [id number] [place] Product Code Blood Bank [id number] [place] Product Code Blood Bank [id number] [place] XR CHEST PORTABLEon 05-08-20 20 INR Coag (Bld) [Relative time] BILATERAL PNEUMONIA [place] EXAMINATION: XR CHES T PORTABLE CLINICAL HISTORY: HYPOXIA COMPARISONS: MAY 07, 2020 FINDINGS: Osseous structures intact. Cardiopericardial silhouette normal. A homogeneous area of increased opacity is found in the right upper lobe marginated inferiorly by the minor fissure with an ill-defined area of increased opacity identified in the right lower lobe. There is of increased opacity are also visualized in the left lower lung zone. [place] Hemant, Chpo Incoming Radiant Results From [facility] - 05/08/2020 8:14 AM EST EXAMINATION: XR CHEST PORTABLE CLINICAL HISTORY: HYPOXIA COMPARISONS: MAY 07, 2020 FINDINGS: Osseous structures intact. Cardiopericardial silhouette normal. A homogeneous area of increased opacity is found in the right upper lobe marginated inferiorly by the minor fissure with an ill-defined area of increased opacity identified in the right lower lobe. There is of increased opacity are also visualized in the left lower lung zone. IMPRESSION: BILATERAL PNEUMONIA [place] Basic Metabolic Panelon 11-0 Anion gap [Moles/Vol] 10 mmol/L [place] Calcium [Mass/Vol] 8.6 mg/dL 8.5 - 9.9 mg/dL [place] Chloride [Moles/Vol] 102 mmol/L [place] CO2 [Moles/Vol] 24 mmol/L [place] Creatinine [Mass/Vol] 0.61 mg/dL 0.5 - 0.9 mg/dL [place] GFR >60.0 >60 [place] Comment on above: >60 mL/min/1.73m2 EG FR, calc. for ages 18 and older using the MDRD formula (not corrected for weight), is valid for stable renal function. GFR Non- >60.0 >60 [place] Comment on above: >60 mL/min/1.73m2 EG FR, calc. for ages 18 and older using the MDRD formula (not corrected for weight), is valid for stable renal function. Glucose [Mass/Vol] 158 mg/dL High 70 - 99 mg/dL [place] Potassium [Moles/Vol] 4.1 mmol/L [place] Sodium [Moles/Vol] 136 mmol/L [place] Urea nitrogen [Mass/Vol] 16 mg/dL 6 - 20 mg/dL [place] Anion gap [Moles/Vol] 9 mmol/L [place] Calcium [Mass/Vol] 8.6 mg/dL 8.5 - 9.9 mg/dL [place] Chloride [Moles/Vol] 103 mmol/L [place] CO2 [Moles/Vol] 22 mmol/L [place] Creatinine [Mass/Vol] 0.47 mg/dL Low 0.5 - 0.9 mg/dL [place] GFR >60.0 >60 [place] Comment on above: >60 mL/min/1.73m2 EG FR, calc. for ages 18 and older using the MDRD formula (not corrected for weight), is valid for stable renal function. GFR Non- >60.0 >60 [place] Comment on above: >60 mL/min/1.73m2 EG FR, calc. for ages 18 and older using the MDRD formula (not corrected for weight), is valid for stable renal function. Glucose [Mass/Vol] 123 mg/dL High 70 - 99 mg/dL [place] Potassium [Moles/Vol] 3.9 mmol/L [place] Sodium [Moles/Vol] 134 mmol/L [place] Urea nitrogen [Mass/Vol] 16 mg/dL 6 - 20 mg/dL [place] Anion gap [Moles/Vol] 9 mmol/L [place] Calcium [Mass/Vol] 9.0 mg/dL 8.5 - 9.9 mg/dL [place] Chloride [Moles/Vol] 100 mmol/L [place] CO2 [Moles/Vol] 22 mmol/L [place], [place] Creatinine [Mass/Vol] 0.55 mg/dL 0.5 - 0.9 mg/dL [place] GFR >60.0 >60 [place] Comment on above: >60 mL/min/1.73m2 EG FR, calc. for ages 18 and older using the MDRD formula (not corrected for weight), is valid for stable renal function. GFR Non- >60.0 >60 [place] Comment on above: >60 mL/min/1.73m2 EG FR, calc. for ages 18 and older using the MDRD formula (not corrected for weight), is valid for stable renal function. Glucose [Mass/Vol] 244 mg/dL High 70 - 99 mg/dL [place] Potassium [Moles/Vol] 4.0 mmol/L [place] Sodium [Moles/Vol] 131 mmol/L [place] Urea nitrogen [Mass/Vol] 15 mg/dL 6 - 20 mg/dL [place] CBC Auto Differentialon 11-0 Basophils (Bld) [#/Vol] 0.0 10*3/uL 0 - 0.2 K/uL [place] Basophils/100 WBC (Bld) 0.3 % [place] Eosinophils (Bld) [#/Vol] 0.0 10*3/uL 0 - 0.7 K/uL [place] Eosinophils/100 WBC (Bld) 0 % [place] Erythrocyte distribution width (RBC) [Ratio] 14.6 % High 11.5 - 14.5 % [place] Hematocrit (Bld) [Volume fraction] 36.9 % Low 37 - 47 % [place] Hemoglobin (Bld) [Mass/Vol] 12.3 g/dL 12 - 16 g/dL [place] Interpretation and review of laboratory results Abnormal [place] Lymphocytes (Bld) [#/Vol] 0.9 10*3/uL Low 1 - 4.8 K/uL [place] Lymphocytes/100 WBC (Bld) 17.8 % [place] MCH (RBC) [Entitic mass] 27.7 pg 27 - 31.3 pg [place] MCHC (RBC) [Mass/Vol] 33.4 % 33 - 37 % [place] MCV (RBC) [Entitic vol] 82.8 fL 82 - 100 fL [place] Monocytes (Bld) [#/Vol] 0.4 10*3/uL 0.2 - 0.8 K/uL [place] Monocytes/100 WBC (Bld) 7.6 % [place] Neutrophils Absolute 3.7 K/uL 1.4 - 6 .5 K/uL [place] Neutrophils/100 WBC (Bld) 74.3 % [place] Platelets (Bld) [#/Vol] 264 10*3/uL 130 - 400 K/uL [place] RBC (Bld) [#/Vol] 4.46 10*6/uL [place] WBC (Bld) [#/Vol] 5.0 10*3/uL 4.8 - 10.8 K/uL [place] Comprehensive Metabolic Pane l w/ Reflex to MGon 05-07-2020 Albumin [Mass/Vol] 3.4 g/dL Low 3.5 - 4.6 g/dL [place] ALP [Catalytic activity/Vol] 67 U/L 40 - 130 U/L [place] ALT [Catalytic activity/Vol] 11 U/L 0 - 33 U/L [place] Anion gap [Moles/Vol] 8 mmol/L Low [place] AST [Catalytic activity/Vol] 18 U/L 0 - 35 U/L [place] Bilirubin Ql (U) <0.2 0.2 - 0.7 mg/dL [place] Calcium [Mass/Vol] 8.9 mg/dL 8.5 - 9.9 mg/dL [place] Chloride [Moles/Vol] 100 mmol/L [place] CO2 [Moles/Vol] 24 mmol/L [facility] [place] Creatinine [Mass/Vol] 0.55 mg/dL 0.5 - 0.9 mg/dL [place] GFR >60.0 >60 [place] Comment on above: >60 mL/min/1.73m2 EG FR, calc. for ages 18 and older using the MDRD formula (not corrected for weight), is valid for stable renal function. GFR Non- >60.0 >60 [place] Comment on above: >60 mL/min/1.73m2 EG FR, calc. for ages 18 and older using the MDRD formula (not corrected for weight), is valid for stable renal function. Globulin (S) [Mass/Vol] 2.9 g/dL 2.3 - 3.5 g/dL [place] Glucose [Mass/Vol] 161 mg/dL High 70 - 99 mg/dL [place] Interpretation and review of laboratory results Abnormal [place] Potassium [Moles/Vol] 3.6 mmol/L [place] Protein [Mass/Vol] 6.3 g/dL 6.3 - 8 g/dL [place] Sodium [Moles/Vol] 132 mmol/L [place] Urea nitrogen [Mass/Vol] 15 mg/dL 6 - 20 mg/dL [place] EKG 12 Lead - Chest Painon 1 07-07-2019 Atrial Rate 127 BPM [place] P Purchase 51 degrees [place] P-R Interval 130 ms [place] Q-T Interval 334 ms [place] QRS Duration 82 ms [place] QTc Calculation (Bazett) 485 ms [place] R Purchase -5 degrees [place], KY T Purchase 52 degrees [place] Ventricular Rate 127 BPM [place], [place] Hemant, Chpo Incoming Results From [facility] - 05/07/2020 10:37 AM EST Sinus tachycardia Otherwise normal ECG When compared with ECG of 13-JAN-2020 22:18, T wave inversion no longer evident in Inferior leads Confirmed by LYNN RAE ([id number]) on 05/07/2020 10:37:40 AM [place] Sinus tachycardia Otherwise normal ECG When compared with ECG of 13-JAN-2020 22:18, T wave inversion no longer evident in Inferior leads Confirmed by LYNN RAE ([id number]) on 05/07/2020 10:37:40 AM [place] Magnesiumon 05-07-2020 Magnesium [Mass/Vol] 1.8 mg/dL 1.7 - 2 .4 mg/dL [place] Magnesium [Mass/Vol] 2.0 mg/dL 1.7 - 2 .4 mg/dL [place] Magnesium [Mass/Vol] 1.9 mg/dL 1.7 - 2 .4 mg/dL [place] Magnesium [Mass/Vol] 2.1 mg/dL 1.7 - 2 .4 mg/dL [place] Otheron 05-07-2020 Interpretation and review of laboratory results Abnormal [place] Interpretation and review of laboratory results Abnormal [place] Collection has been rescheduled by LAURENT at 05/07/2020 08:11 Reason: Failed attempt at venipuncture [place] Performed on [facility] [place] Interpretation and review of laboratory results Abnormal [place] POCT Arterialon 05-07-2020 Base Excess, Arterial -1 [place] Calcium [Mass/Vol] 1.18 mmol/L 1.12 - 1.32 mmol/L [place] Chloride [Moles/Vol] 105 mmol/L [place] Creatinine [Mass/Vol] 0.6 mg/dL 0.6 - 1.1 mg/dL [place] KY FIO2 3 [place] GFR >60 >60 [place] Comment on above: >60 mL/min/1.73m2 EG FR, calc. for ages 18 and older using the MDRD formula (not corrected for weight), is valid for stable renal function. GFR Non- >60 >60 [place] Comment on above: >60 mL/min/1.73m2 EG FR, calc. for ages 18 and older using the MDRD formula (not corrected for weight), is valid for stable renal function. Glucose [Mass/Vol] 423 mg/dL Critically high 60 - 1 15 mg/dl [place] HCO3, Arterial 22.6 mmol/L 21 - 29 mmol/L [place] Hematocrit (Bld) [Volume fraction] 36 % 36 - 48 % [place] Hemoglobin (Bld) [Mass/Vol] 12.3 g/dL [place] Interpretation and review of laboratory results Abnormal [place] Lactate [Moles/Vol] 2.03 mmol/L High 0.4 - 2 mmol/L [place] Oxygen saturation in Blood 86 % Critically low 93 - 100 % [place] pCO2, Arterial 32 Low [place] Performed on SEE BELOW [place] Comment on above: Performed on POC Sample Type: Arterial Draw site: R Brach Oxygen Delivery System: Cannula Critical action: Notify SHALOM Critical notify: rl Notify date: 07-May-20 Notify time: 16:32:29 pH, Arterial 7.456 High [place] pO2, Arterial 48 Critically high [place] Potassium [Moles/Vol] 4.2 mmol/L [place] Sample Type ART [place] Sodium [Moles/Vol] 137 mmol/L [place] TCO2, Arterial 24 [place] POCT Glucoseon 05-07-2020 Glucose [Mass/Vol] 294 mg/dL High 60 - 115 mg/dl [place] Interpretation and review of laboratory results Abnormal [place] [facility] [place] Glucose [Mass/Vol] 354 mg/dL High 60 - 115 mg/dl [place] Interpretation and review of laboratory results Abnormal [place] [facility] [place] Glucose [Mass/Vol] 147 mg/dL High 60 - 115 mg/dl [place] Interpretation and review of laboratory results Abnormal [place] [facility] [place] Glucose [Mass/Vol] 118 mg/dL High 60 - 115 mg/dl [place] Interpretation and review of laboratory results Abnormal [place] [facility] [place] Glucose [Mass/Vol] 125 mg/dL High 60 - 115 mg/dl [place] Interpretation and review of laboratory results Abnormal [place] [facility] [place] Glucose [Mass/Vol] 132 mg/dL High 60 - 115 mg/dl [place] Interpretation and review of laboratory results Abnormal [place] [facility] [place] Glucose [Mass/Vol] 137 mg/dL High 60 - 115 mg/dl [place] Interpretation and review of laboratory results Abnormal [place] Performed on [facility] [place] Glucose [Mass/Vol] 153 mg/dL High 60 - 115 mg/dl [place] Interpretation and review of laboratory results Abnormal [place] [facility] [place] Glucose [Mass/Vol] 179 mg/dL High 60 - 115 mg/dl [place] Interpretation and review of laboratory results Abnormal [place] [facility] Glucose [Mass/Vol] 203 mg/dL High 60 - 115 mg/dl [place] Interpretation and review of laboratory results Abnormal [place] Performed on [facility] [place] Glucose [Mass/Vol] 207 mg/dL High 60 - 115 mg/dl [place] Interpretation and review of laboratory results Abnormal [place] Glucose [Mass/Vol] 223 mg/dL High 60 - 115 mg/dl [place] Phosphoruson 05-07-2020 Phosphate [Mass/Vol] 1.3 mg/dL Low 2.3 - 4 .8 mg/dL [place] Phosphate [Mass/Vol] 1.3 mg/dL Low 2.3 - 4 .8 mg/dL [place] Interpretation and review of laboratory results Abnormal [place] Phosphate [Mass/Vol] 1.3 mg/dL Low 2.3 - 4 .8 mg/dL [place] Phosphate [Mass/Vol] 1.5 mg/dL Low 2.3 - 4 .8 mg/dL [place] RENAL FUNCTION PANELon 05-07 Albumin [Mass/Vol] 3.3 g/dL Low 3.5 - 4.6 g/dL [place] Anion gap [Moles/Vol] 14 mmol/L [place] Calcium [Mass/Vol] 8.9 mg/dL 8.5 - 9.9 mg/dL [place] Chloride [Moles/Vol] 106 mmol/L [place] CO2 [Moles/Vol] 19 mmol/L [place] Creatinine [Mass/Vol] 0.6 mg/dL 0.5 - 0.9 mg/dL [place] GFR >60.0 >60 [place] Comment on above: >60 mL/min/1.73m2 EG FR, calc. for ages 18 and older using the MDRD formula (not corrected for weight), is valid for stable renal function. GFR Non- >60.0 >60 [place] Comment on above: >60 mL/min/1.73m2 EG FR, calc. for ages 18 and older using the MDRD formula (not corrected for weight), is valid for stable renal function. Glucose [Mass/Vol] 396 mg/dL High 70 - 99 mg/dL [place] Interpretation and review of laboratory results Abnormal [place] Phosphate [Mass/Vol] 2.3 mg/dL 2.3 - 4 .8 mg/dL [place] Potassium [Moles/Vol] 4.3 mmol/L [place], [place] Sodium [Moles/Vol] 139 mmol/L [place] Urea nitrogen [Mass/Vol] 19 mg/dL 6 - 20 mg/dL [place] Collection has been rescheduled by SAUDE at 05/07/2020 14:35 Reason: Add [place] TYPE AND SCREENon 05-07-2020 ABO/Rh Positive [place] XR CHEST PORTABLEon 05-07-20 20 Interval improvement but persistence of bilateral pneumonia. [place], [place] Exam: XR CHEST GAL BLE History: Hypoxia. Code 19 pneumonia. Technique: AP portable view of the chest obtained. Comparison: Portable chest radiograph from May 05, 2020 Findings: The cardiomediastinal silhouette is within normal limits. Interval improvement but persistence of patchy bilateral airspace opacities. No pneumothorax or pleural effusion. No acute osseous abnormality. [place], [place] Hemant, Chpo Incoming Radiant Results From [facility] - 05/07/2020 4:58 PM EST Exam: XR CHEST PORTABLE History: Hypoxia. Code 19 pneumonia. Technique: AP portable view of the chest obtained. Comparison: Portable chest radiograph from May 05, 2020 Findings: The cardiomediastinal silhouette is within normal limits. Interval improvement but persistence of patchy bilateral airspace opacities. No pneumothorax or pleural effusion. No acute osseous abnormality. IMPRESSION: Interval improvement but persistence of bilateral pneumonia. [place] Basic Metabolic Panelon 11-0 Anion gap [Moles/Vol] 15 mmol/L [place] Calcium [Mass/Vol] 9.2 mg/dL 8.5 - 9.9 mg/dL [place] Chloride [Moles/Vol] 96 mmol/L [place] CO2 [Moles/Vol] 20 mmol/L [facility] [place] Creatinine [Mass/Vol] 0.73 mg/dL 0.5 - 0.9 mg/dL [place] GFR >60.0 >60 [place] Comment on above: >60 mL/min/1.73m2 EG FR, calc. for ages 18 and older using the MDRD formula (not corrected for weight), is valid for stable renal function. GFR Non- >60.0 >60 [place] Comment on above: >60 mL/min/1.73m2 EG FR, calc. for ages 18 and older using the MDRD formula (not corrected for weight), is valid for stable renal function. Glucose [Mass/Vol] 624 mg/dL Critically high 70 - 9 9 mg/dL [place] Interpretation and review of laboratory results Abnormal [place] Potassium [Moles/Vol] 4.8 mmol/L [place] Sodium [Moles/Vol] 131 mmol/L [place] Urea nitrogen [Mass/Vol] 17 mg/dL 6 - 20 mg/dL [place] CALL [id number] tel. [phone], GLU results called to and read back by Belgica Carpenter, 05/06/2020 18:58, by RAKESH [place] CBC Auto Differentialon 11-0 Basophils (Bld) [#/Vol] 0.0 10*3/uL 0 - 0.2 K/uL [place] Basophils/100 WBC (Bld) 0.1 % [place] Eosinophils (Bld) [#/Vol] 0.0 10*3/uL 0 - 0.7 K/uL [place] Eosinophils/100 WBC (Bld) 0 % [place] Erythrocyte distribution width (RBC) [Ratio] 14.7 % High 11.5 - 14.5 % [place] Hematocrit (Bld) [Volume fraction] 39.2 % 37 - 47 % [place] Hemoglobin (Bld) [Mass/Vol] 13.1 g/dL 12 - 16 g/dL [place] Interpretation and review of laboratory results Abnormal [place] Lymphocytes (Bld) [#/Vol] 0.8 10*3/uL Low 1 - 4.8 K/uL [place] Lymphocytes/100 WBC (Bld) 23.1 % [place] MCH (RBC) [Entitic mass] 27.7 pg 27 - 31.3 pg [place] MCHC (RBC) [Mass/Vol] 33.5 % 33 - 37 % [place] MCV (RBC) [Entitic vol] 82.8 fL 82 - 100 fL [place] Monocytes (Bld) [#/Vol] 0.4 10*3/uL 0.2 - 0.8 K/uL [place] Monocytes/100 WBC (Bld) 10.2 % [place] Neutrophils Absolute 2.3 K/uL 1.4 - 6 .5 K/uL [place] Neutrophils/100 WBC (Bld) 66.6 % [place] Platelets (Bld) [#/Vol] 254 10*3/uL 130 - 400 K/uL [place] RBC (Bld) [#/Vol] 4.74 10*6/uL [place] WBC (Bld) [#/Vol] 3.4 10*3/uL Low 4.8 - 10.8 K/uL [place] Comprehensive Metabolic Pane l w/ Reflex to MGon 05-06-2020 Albumin [Mass/Vol] 3.7 g/dL 3.5 - 4.6 g/dL [place] ALP [Catalytic activity/Vol] 76 U/L 40 - 130 U/L [place] ALT [Catalytic activity/Vol] 13 U/L 0 - 33 U/L [place] Anion gap [Moles/Vol] 16 mmol/L [place] AST [Catalytic activity/Vol] 21 U/L 0 - 35 U/L [place] Bilirubin Ql (U) 0.3 mg/dL 0.2 - 0.7 mg/dL [place] Calcium [Mass/Vol] 8.9 mg/dL 8.5 - 9.9 mg/dL [place] Chloride [Moles/Vol] 97 mmol/L [place] CO2 [Moles/Vol] 20 mmol/L [facility] [place] Creatinine [Mass/Vol] 0.53 mg/dL 0.5 - 0.9 mg/dL [place] GFR >60.0 >60 [place] Comment on above: >60 mL/min/1.73m2 EG FR, calc. for ages 18 and older using the MDRD formula (not corrected for weight), is valid for stable renal function. GFR Non- >60.0 >60 [place] Comment on above: >60 mL/min/1.73m2 EG FR, calc. for ages 18 and older using the MDRD formula (not corrected for weight), is valid for stable renal function. Globulin (S) [Mass/Vol] 3.8 g/dL High 2.3 - 3.5 g/dL [place] Glucose [Mass/Vol] 330 mg/dL High 70 - 99 mg/dL [place] Interpretation and review of laboratory results Abnormal [place] Potassium [Moles/Vol] 4.2 mmol/L [place] Protein [Mass/Vol] 7.5 g/dL 6.3 - 8 g/dL [place] Sodium [Moles/Vol] 133 mmol/L [place] Urea nitrogen [Mass/Vol] 11 mg/dL 6 - 20 mg/dL [place] Hemoglobin A1con 05-06-2020 HbA1c (Bld) [Mass fraction] 11.5 % High 4.8 - 5.9 % [place] Interpretation and review of laboratory results Abnormal [place] add [place] POCT Glucoseon 05-06-2020 Glucose [Mass/Vol] 273 mg/dL High 60 - 115 mg/dl [place] Interpretation and review of laboratory results Abnormal [place] Performed on ACCU-CHEK [place] Glucose [Mass/Vol] 449 mg/dL Critically high 60 - 1 15 mg/dl [place] Interpretation and review of laboratory results Abnormal [place] Performed on ACCU-CHEK [place] Glucose [Mass/Vol] 566 mg/dL Critically high 60 - 1 15 mg/dl [place] Interpretation and review of laboratory results Abnormal [place] Performed on ACCU-CHEK [place] Glucose [Mass/Vol] 560 mg/dL Critically high 60 - 1 15 mg/dl [place] Interpretation and review of laboratory results Abnormal [place] Performed on ACCU-CHEK [place] US DUP LOWER EXTREMITIES STEPHANIE ATERAL VENOUSon 05-06-2020 NO SONOGRAPHIC EVIDE NCE OF DEEP VENOUS THROMBOSIS WITHIN THE BILATERAL LOWER EXTREMITIES. [place] VENOUS DUPLEX ULTRAS OUND OF THE BILATERAL LOWER EXTREMITY CLINICAL HISTORY: COVID, r/o dvt COMPARISON: NONE AVAILABLE TECHNIQUE: Sonographic imaging of the deep venous system of the bilateral lower extremities was performed by a registered apparel sales leader and the images were submitted for interpretation. FINDINGS: The common femoral, superficial femoral, and popliteal veins demonstrate normal color flow, augmentation, and compressibility. No venous duplex ultrasound evidence of DVT in the bilateral lower extremities. [place] Hemant, Chpo Incoming Radiant Results From [facility] - 05/06/2020 7:58 AM EST VENOUS DUPLEX ULTRASOUND OF THE BILATERAL LOWER EXTREMITY CLINICAL HISTORY: COVID, r/o dvt COMPARISON: NONE AVAILABLE TECHNIQUE: Sonographic imaging of the deep venous system of the bilateral lower extremities was performed by a registered apparel sales leader and the images were submitted for interpretation. FINDINGS: The common femoral, superficial femoral, and popliteal veins demonstrate normal color flow, augmentation, and compressibility. No venous duplex ultrasound evidence of DVT in the bilateral lower extremities. IMPRESSION: NO SONOGRAPHIC EVIDENCE OF DEEP VENOUS THROMBOSIS WITHIN THE BILATERAL LOWER EXTREMITIES. [place] CBC Auto Differentialon Bands Relative 3 % Low 5 - 11 % [place] Basophils (Bld) [#/Vol] 0.0 10*3/uL 0 - 0.2 K/uL [place] Basophils/100 WBC (Bld) 0.2 % [place] Eosinophils (Bld) [#/Vol] 0.0 10*3/uL 0 - 0.7 K/uL [place] Eosinophils/100 WBC (Bld) 0.1 % [place] Erythrocyte distribution width (RBC) [Ratio] 14.7 % High 11.5 - 14.5 % [place] Hematocrit (Bld) [Volume fraction] 42.0 % 37 - 47 % [place] Hemoglobin (Bld) [Mass/Vol] 14.3 g/dL 12 - 16 g/dL [place] Interpretation and review of laboratory results Abnormal [place] Lymphocytes (Bld) [#/Vol] 0.7 10*3/uL Low 1 - 4.8 K/uL [place] Lymphocytes/100 WBC (Bld) 20.0 % [place] MCH (RBC) [Entitic mass] 28.2 pg 27 - 31.3 pg [place] MCHC (RBC) [Mass/Vol] 34.0 % 33 - 37 % [place] MCV (RBC) [Entitic vol] 82.9 fL 82 - 100 fL [place] Monocytes (Bld) [#/Vol] 0.3 10*3/uL 0.2 - 0.8 K/uL [place] Monocytes/100 WBC (Bld) 6.6 % [place] Neutrophils Absolute 2.7 K/uL 1.4 - 6 .5 K/uL [place] Neutrophils/100 WBC (Bld) 71.0 % [place] Platelets (Bld) [#/Vol] 231 10*3/uL 130 - 400 K/uL [place] RBC (Bld) [#/Vol] 5.07 10*6/uL [place] RBC morphology finding Nom (Bld) Normal [place] WBC (Bld) [#/Vol] 3.6 10*3/uL Low 4.8 - 10.8 K/uL [place] CTA Chest W WO (PE study)on 05-05-2020 There are patchy aimee eolar opacities scattered throughout all segments of both lungs indicating pneumonia which may represent viral, COVID-19 pneumonia versus other etiologies. . No evidence of thoracic aortic dissection or aneurysm. The study is negative for pulmonary emboli. [place] EXAM:CTA CHEST W WO CONTRAST DATE05/05/2020 11:06 AM: REASON FOR EXAM:Acute severe anterior chest wall pain. covid positive hypoxic COMPARISON: none Technique: Helical CT was performed through the chest following the IV administration of100 cc of nonionic contrast. 3-D MIP reconstructions were performed on an independent workstation in the coronal plane with thick slab technique utilized in the interpretation. 3-D maximum intensity projection performed. All CT scans at this facility use dose modulation, iterative reconstruction, and/or weight based dosing when appropriate to reduce radiation dose to as low as reasonably achievable. FINDINGS Mediastinum: Mediastinum and zohaib are normal. There are no pathologically enlarged lymph nodes. The chest wall and lower neck are normal Heart: The heart is within normal limits. There is no pericardial effusion. Vascular structures:There is no evidence for thoracic aortic aneurysm or dissection. No evidence of traumatic aortic injury. There is no evidence for pulmonary emboli. Lungs: There are patchy alveolar opacities scattered throughout all segments of both lungs. Pleura: No pleural effusion or thickening. Upper abdomen: The visualized portions of the upper abdomen are unremarkable. Bones/axillae/soft tissues: Osseous structures and chest wall are normal. [place] Hemant, po Incoming Radiant Results From [facility] - 05/05/2020 12:14 PM EST EXAM:CTA CHEST W WO CONTRAST DATE05/05/2020 11:06 AM: REASON FOR EXAM:Acute severe anterior chest wall pain. covid positive hypoxic COMPARISON: none Technique: Helical CT was performed through the chest following the IV administration of100 cc of nonionic contrast. 3-D MIP reconstructions were performed on an independent workstation in the coronal plane with thick slab technique utilized in the interpretation. 3-D maximum intensity projection performed. All CT scans at this facility use dose modulation, iterative reconstruction, and/or weight based dosing when appropriate to reduce radiation dose to as low as reasonably achievable. FINDINGS Mediastinum: Mediastinum and zohaib are normal. There are no pathologically enlarged lymph nodes. The chest wall and lower neck are normal Heart: The heart is within normal limits. There is no pericardial effusion. Vascular structures:There is no evidence for thoracic aortic aneurysm or dissection. No evidence of traumatic aortic injury. There is no evidence for pulmonary emboli. Lungs: There are patchy alveolar opacities scattered throughout all segments of both lungs. Pleura: No pleural effusion or thickening. Upper abdomen: The visualized portions of the upper abdomen are unremarkable. Bones/axillae/soft tissues: Osseous structures and chest wall are normal. IMPRESSION: There are patchy alveolar opacities scattered throughout all segments of both lungs indicating pneumonia which may represent viral, COVID-19 pneumonia versus other etiologies. . No evidence of thoracic aortic dissection or aneurysm. The study is negative for pulmonary emboli. [place] Comprehensive Metabolic Pane ben 05-05-2020 Albumin [Mass/Vol] 4.1 g/dL 3.5 - 4.6 g/dL [place] ALP [Catalytic activity/Vol] 86 U/L 40 - 130 U/L [place] ALT [Catalytic activity/Vol] 18 U/L 0 - 33 U/L [place] Anion gap [Moles/Vol] 19 mmol/L [place] AST [Catalytic activity/Vol] 34 U/L 0 - 35 U/L [place] Comment on above: Specimen hemolysis h as exceeded the interference as defined by Mariah. Value may be falsely increased. Suggest recollection if clinically indicated. Bilirubin Ql (U) 0.4 mg/dL 0.2 - 0.7 mg/dL [place] Calcium [Mass/Vol] 8.8 mg/dL 8.5 - 9.9 mg/dL [place] Chloride [Moles/Vol] 95 mmol/L [place] CO2 [Moles/Vol] [facility] [place] Creatinine [Mass/Vol] 0.63 mg/dL 0.5 - 0.9 mg/dL [place] GFR >60.0 >60 [place] Comment on above: >60 mL/min/1.73m2 EG FR, calc. for ages 18 and older using the MDRD formula (not corrected for weight), is valid for stable renal function. GFR Non- >60.0 >60 [place] Comment on above: >60 mL/min/1.73m2 EG FR, calc. for ages 18 and older using the MDRD formula (not corrected for weight), is valid for stable renal function. Globulin (S) [Mass/Vol] 4.1 g/dL High 2.3 - 3.5 g/dL [place] Glucose [Mass/Vol] 250 mg/dL High 70 - 99 mg/dL [place] Interpretation and review of laboratory results Abnormal [place] Potassium [Moles/Vol] 4.3 mmol/L [place] Protein [Mass/Vol] 8.2 g/dL High 6.3 - 8 g/dL [place] Sodium [Moles/Vol] 136 mmol/L [place] Urea nitrogen [Mass/Vol] 10 mg/dL 6 - 20 mg/dL [place] D-Dimer, Quantitativeon D-Dimer, Quant 1.22 Critically high [place] Comment on above: VTE (DVT or PE) cut- off = 0.50 mg/L FEU Interpretation and review of laboratory results Abnormal [place] CALL [facility] tel. [phone], Dimer results called to and read back by Grace Pride, 05/05/2020 11:15, by NICK [place] Ferritinon 05-05-2020 Ferritin [Mass/Vol] 144.5 ng/mL 13 - 150 ng/mL [place] High sensitivity CRPon 05-05 CRP High Sensitivity 59.3 mg/L High 0 - 5 mg/L [place] Interpretation and review of laboratory results Abnormal [place] POCT Arterialon 05-05-2020 Base Excess, Arterial -1 [place] Calcium [Mass/Vol] 1.12 mmol/L 1.12 - 1.32 mmol/L [place], [place] Chloride [Moles/Vol] 102 mmol/L [place] Creatinine [Mass/Vol] 0.7 mg/dL 0.6 - 1.1 mg/dL [place] GFR >60 >60 [place] Comment on above: >60 mL/min/1.73m2 EG FR, calc. for ages 18 and older using the MDRD formula (not corrected for weight), is valid for stable renal function. GFR Non- >60 >60 [place] Comment on above: >60 mL/min/1.73m2 EG FR, calc. for ages 18 and older using the MDRD formula (not corrected for weight), is valid for stable renal function. Glucose [Mass/Vol] 280 mg/dL High 60 - 115 mg/dl [place] HCO3, Arterial 22.3 mmol/L 21 - 29 mmol/L [place] Hematocrit (Bld) [Volume fraction] 41 % 36 - 48 % [place] Hemoglobin (Bld) [Mass/Vol] 13.9 g/dL [place] Interpretation and review of laboratory results Abnormal [place] Lactate [Moles/Vol] 0.9 mmol/L 0.4 - 2 mmol/L [place] Oxygen saturation in Blood 97 % Critically high 93 - 100 % [place] pCO2, Arterial 30 Low [place], [place] Performed on SEE BELOW [place] Comment on above: Performed on POC Sample Type: Arterial pH, Arterial 7.475 High [place] pO2, Arterial 84 Critically high [place] Potassium [Moles/Vol] 3.8 mmol/L [place] Sample Type ART [place] Sodium [Moles/Vol] 135 mmol/L [place] TCO2, Arterial 23 [place], [place] POCT Venouson 05-05-2020 Creatinine [Mass/Vol] 0.5 mg/dL Low 0.6 - 1.1 mg/dL [place] GFR >60 >60 [place] Comment on above: >60 mL/min/1.73m2 EG FR, calc. for ages 18 and older using the MDRD formula (not corrected for weight), is valid for stable renal function. GFR Non- >60 >60 [place] Comment on above: >60 mL/min/1.73m2 EG FR, calc. for ages 18 and older using the MDRD formula (not corrected for weight), is valid for stable renal function. Interpretation and review of laboratory results Abnormal [place] Performed on SEE BELOW [place] Comment on above: Performed on POC Sample Type JUSTICE [place] PROCALCITONINon 05-05-2020 Procalcitonin 0.1 ng/mL 0 - 0.15 ng/mL [place] Comment on above: Suspected Sepsis: Low likelihood of sepsis <.50 ng/mL Increased likelihood of sepsis 0.50-2.00 ng/mL Antibiotics encouraged High risk of sepsis/shock >2.00 ng/mL Antibiotics strongly encouraged Suspected Lower Respiratory Tract Infections: Low likelihood of bacterial infection <0.24 ng/mL Increased likelihood of bacterial infection >0.24 ng/mL Antibiotics encouraged With successful antibiotic therapy, PCT levels should decrease rapidly. (Half-life of 24 to 36 hours.) Procalcitonin values from samples collected within the first 6 hours of systemic infection may still be low. Retesting may be indicated. Values from day 1 and day 4 can be entered into the Change in Procalcitonin Calculator to determine the patient's Mortality Risk Prognosis ([email or web address] (formerly [email or web address])) In healthy neonates, plasma Procalcitonin (PCT) concentrations increase gradually after , reaching peak values at about 24 hours of age then decrease to normal values below 0.5 ng/mL by 48-72 hours of age. Sedimentation Rateon 020 Interpretation and review of laboratory results Abnormal [place] Sed Rate 82 mm High 0 - 20 mm [place] Troponinon 05-05-2020 Troponin I.cardiac [Mass/Vol] ng/mL 0 - 0.01 ng/mL [place] Comment on above: Methodology by Shahnaz Chan XR CHEST PORTABLEon 05-05-20 Exam: XR CHEST GAL BLE History: cp Technique: AP portable view of the chest obtained. Comparison: None Findings: The cardiomediastinal silhouette is within normal limits. There are ill-defined patchy alveolar opacities in both lungs, left greater than right. Bones of the thorax appear intact. [place] Hemant, Chpo Incoming Radiant Results From [facility] - 05/05/2020 10:20 AM EST Exam: XR CHEST PORTABLE History: cp Technique: AP portable view of the chest obtained. Comparison: None Findings: The cardiomediastinal silhouette is within normal limits. There are ill-defined patchy alveolar opacities in both lungs, left greater than right. Bones of the thorax appear intact. IMPRESSION: There are alveolar opacities which may represent early infiltrates, pneumonia. The differential includes COVID-19 pneumonia versus other etiologies [place] There are alveolar opacities which may represent early infiltrates, pneumonia. The differential includes COVID-19 pneumonia versus other etiologies [place] CBC Auto Differentialon Basophils (Bld) [#/Vol] 0.0 10*3/uL 0 - 0.2 K/uL [place] Basophils/100 WBC (Bld) 0.4 % [place] Eosinophils (Bld) [#/Vol] 0.0 10*3/uL 0 - 0.7 K/uL [place] Eosinophils/100 WBC (Bld) 0.1 % [place] Erythrocyte distribution width (RBC) [Ratio] 14.6 % High 11.5 - 14.5 % [place] Hematocrit (Bld) [Volume fraction] 37.8 % 37 - 47 % [place] Hemoglobin (Bld) [Mass/Vol] 12.4 g/dL 12 - 16 g/dL [place] Interpretation and review of laboratory results Abnormal [place] Lymphocytes (Bld) [#/Vol] 0.9 10*3/uL Low 1 - 4.8 K/uL [place] Lymphocytes/100 WBC (Bld) 21.8 % [place] MCH (RBC) [Entitic mass] 27.5 pg 27 - 31.3 pg [place] MCHC (RBC) [Mass/Vol] 32.7 % Low 33 - 37 % [place] MCV (RBC) [Entitic vol] 84.1 fL 82 - 100 fL [place] Monocytes (Bld) [#/Vol] 0.4 10*3/uL 0.2 - 0.8 K/uL [place] Monocytes/100 WBC (Bld) 10.7 % [place] Neutrophils Absolute 2.7 K/uL 1.4 - 6 .5 K/uL [place] Neutrophils/100 WBC (Bld) 67.0 % [place] Platelets (Bld) [#/Vol] 193 10*3/uL 130 - 400 K/uL [place] RBC (Bld) [#/Vol] 4.49 10*6/uL [place] WBC (Bld) [#/Vol] 4.0 10*3/uL Low 4.8 - 10.8 K/uL [place] Comprehensive Metabolic Pane ben 05-01-2020 Albumin [Mass/Vol] 3.8 g/dL 3.5 - 4.6 g/dL [place] ALP [Catalytic activity/Vol] 94 U/L 40 - 130 U/L [place] ALT [Catalytic activity/Vol] 32 U/L 0 - 33 U/L [place] Comment on above: Specimen hemolysis h as exceeded the interference as defined by Mariah. Result may be affected. Suggest recollection if clinically indicated. Anion gap [Moles/Vol] 13 mmol/L [place] AST [Catalytic activity/Vol] 53 U/L High 0 - 35 U/L [place] Comment on above: Specimen hemolysis h as exceeded the interference as defined by Mariah. Value may be falsely increased. Suggest recollection if clinically indicated. Bilirubin Ql (U) 0.4 mg/dL 0.2 - 0.7 mg/dL [place] Calcium [Mass/Vol] 8.7 mg/dL 8.5 - 9.9 mg/dL [place] Chloride [Moles/Vol] 97 mmol/L [place] CO2 [Moles/Vol] 22 mmol/L [place], [place] Creatinine [Mass/Vol] 0.87 mg/dL 0.5 - 0.9 mg/dL [place] GFR >60.0 >60 [place] Comment on above: >60 mL/min/1.73m2 EG FR, calc. for ages 18 and older using the MDRD formula (not corrected for weight), is valid for stable renal function. GFR Non- >60.0 >60 [place] Comment on above: >60 mL/min/1.73m2 EG FR, calc. for ages 18 and older using the MDRD formula (not corrected for weight), is valid for stable renal function. Globulin (S) [Mass/Vol] 3.1 g/dL 2.3 - 3.5 g/dL [place] Glucose [Mass/Vol] 428 mg/dL Critically high 70 - 9 9 mg/dL [place] Interpretation and review of laboratory results Abnormal [place] Potassium [Moles/Vol] 4.9 mmol/L [place] Comment on above: Specimen hemolysis h as exceeded the interference as defined by Mariah. Value may be falsely increased. Suggest recollection if clinically indicated. Specimen slightly hemolyzed Protein [Mass/Vol] 6.9 g/dL 6.3 - 8 g/dL [place] Sodium [Moles/Vol] 132 mmol/L Low [place] Urea nitrogen [Mass/Vol] 14 mg/dL 6 - 20 mg/dL [place] Lactic Acid, Plasmaon 2019 Interpretation and review of laboratory results Abnormal [place] Lactate [Moles/Vol] 2.8 mmol/L High 0.5 - 2. 2 mmol/L [place] Magnesiumon 05-01-2020 Magnesium [Mass/Vol] 2.0 mg/dL 1.7 - 2 .4 mg/dL [place] Metabolic Panelon 05-01-2020 Glucose [Mass/Vol] CALL [facility] tel. [phone], Glucose results called to and read back by Grace Pride, 05/01/2020 15:20, by AVINASH [place] POCT Glucoseon 05-01-2020 Glucose [Mass/Vol] 366 mg/dL High 60 - 115 mg/dl [place] Interpretation and review of laboratory results Abnormal [place] Performed on ACCU-CHEK [place] Glucose [Mass/Vol] 366 mg/dL [place] Interpretation and review of laboratory results Normal [place] QC OK? yes [place] XR CHEST PORTABLEon 05-01-20 20 INR Coag (Bld) [Relative time] DEVELOPING AREA OF ATELECTASIS, GROUNDGLASS INFILTRATE LEFT LOWER LOBE [place] Hemant, Chpo Incoming Radiant Results From [facility] - 05/01/2020 2:59 PM EST EXAMINATION: CHEST PORTABLE VIEW CLINICAL HISTORY: Weakness, short of breath COMPARISONS: April 30, 2020 0740 hours FINDINGS: Single views of the chest is submitted. The cardiac silhouette is unchanged. . Pulmonary vascular unremarkable. Right sided trachea. Developing area of atelectasis, groundglass infiltrate left lower lobe. No Pneumothoraces. IMPRESSION: DEVELOPING AREA OF ATELECTASIS, GROUNDGLASS INFILTRATE LEFT LOWER LOBE [place] EXAMINATION: CHEST PORTABLE VIEW CLINICAL HISTORY: Weakness, short of breath COMPARISONS: April 30, 2020 0740 hours FINDINGS: Single views of the chest is submitted. The cardiac silhouette is unchanged. . Pulmonary vascular unremarkable. Right sided trachea. Developing area of atelectasis, groundglass infiltrate left lower lobe. No Pneumothoraces. [place] CBC Auto Differentialon Basophils (Bld) [#/Vol] 0.0 10*3/uL 0 - 0.2 K/uL [place] Basophils/100 WBC (Bld) 0.7 % [place] Eosinophils (Bld) [#/Vol] 0.0 10*3/uL 0 - 0.7 K/uL [place] Eosinophils/100 WBC (Bld) 0.5 % [place] Erythrocyte distribution width (RBC) [Ratio] 14.4 % 11.5 - 14.5 % [place] Hematocrit (Bld) [Volume fraction] 40.1 % 37 - 47 % [place] Hemoglobin (Bld) [Mass/Vol] 13.4 g/dL 12 - 16 g/dL [place] Lymphocytes (Bld) [#/Vol] 1.1 10*3/uL 1 - 4.8 K/uL [place] Lymphocytes/100 WBC (Bld) 23.2 % [place] MCH (RBC) [Entitic mass] 27.7 pg 27 - 31.3 pg [place] MCHC (RBC) [Mass/Vol] 33.3 % 33 - 37 % [place] MCV (RBC) [Entitic vol] 83.3 fL 82 - 100 fL [place] Monocytes (Bld) [#/Vol] 0.6 10*3/uL 0.2 - 0.8 K/uL [place] Monocytes/100 WBC (Bld) 12.1 % [place] Neutrophils Absolute 3.1 K/uL 1.4 - 6 .5 K/uL [place] Neutrophils/100 WBC (Bld) 63.5 % [place] Platelets (Bld) [#/Vol] 227 10*3/uL 130 - 400 K/uL [place] RBC (Bld) [#/Vol] 4.82 10*6/uL [place] WBC (Bld) [#/Vol] 4.9 10*3/uL 4.8 - 10.8 K/uL [place] COVID-19on 04-30-2020 Interpretation and review of laboratory results Abnormal [place] SARS-CoV-2, NAAT DETECTED Abnormal Not Detected [place] Comment on above: Rapid NAAT: Negative results should be treated as presumptive and, if inconsistent with clinical signs and symptoms or necessary for patient management, should be tested with an alternative molecular assay. Negative results do not preclude SARS-CoV-2 infection and should not be used as the sole basis for patient management decisions. This test has been authorized by the FDA under an Emergency Use Authorization (EUA) for use by authorized laboratories. Fact sheet for Healthcare Providers: https://www.fda.gov/media/182131/download Fact sheet for Patients: https://www.fda.gov/media/629540/download METHODOLOGY: Isothermal Nucleic Acid Amplification CALL [facility] tel. [phone], COVID results called to and read back by Lore Palomino, 04/30/2020 07:41, by AVINASH [place] Comprehensive Metabolic Pane ben 04-30-2020 Albumin [Mass/Vol] 4.2 g/dL 3.5 - 4.6 g/dL [place] ALP [Catalytic activity/Vol] 86 U/L 40 - 130 U/L [place] ALT [Catalytic activity/Vol] 22 U/L 0 - 33 U/L [place] Anion gap [Moles/Vol] 13 mmol/L [place] AST [Catalytic activity/Vol] 24 U/L 0 - 35 U/L [place] Bilirubin Ql (U) 0.3 mg/dL 0.2 - 0.7 mg/dL [place] Calcium [Mass/Vol] 9.1 mg/dL 8.5 - 9.9 mg/dL [place] Chloride [Moles/Vol] 100 mmol/L [place] CO2 [Moles/Vol] [facility] [place] Creatinine [Mass/Vol] 0.6 mg/dL 0.5 - 0.9 mg/dL [place] GFR >60.0 >60 [place] Comment on above: >60 mL/min/1.73m2 EG FR, calc. for ages 18 and older using the MDRD formula (not corrected for weight), is valid for stable renal function. GFR Non- >60.0 >60 [place] Comment on above: >60 mL/min/1.73m2 EG FR, calc. for ages 18 and older using the MDRD formula (not corrected for weight), is valid for stable renal function. Globulin (S) [Mass/Vol] 3.3 g/dL 2.3 - 3.5 g/dL [place] Glucose [Mass/Vol] 223 mg/dL High 70 - 99 mg/dL [place] Interpretation and review of laboratory results Abnormal [place] Potassium [Moles/Vol] 4.2 mmol/L [place] Protein [Mass/Vol] 7.5 g/dL 6.3 - 8 g/dL [place] Sodium [Moles/Vol] 135 mmol/L [place] Urea nitrogen [Mass/Vol] 9 mg/dL 6 - 20 mg/dL [place] Microscopic Urinalysison Bacteria, UA MANY Abnormal Negative /HPF [place] Epithelial Cells, UA 20-50 [place] Hyaline Casts, UA 5-10 [place] RBC (U) [#/Vol] /uL [place] WBC, UA 50-100 Abnormal [place] Otheron 04-30-2020 Interpretation and review of laboratory results Abnormal [place] Rapid Influenza A/B Antigens on 04-30-2020 Influenza A by PCR Negative [place] Influenza B by PCR Negative [place] Rapid Strep Screenon 020 Strep Grp A PCR Negative [place] Comment on above: Negative for Strep A nucleic acid. Urine Reflex to Cultureon Bilirubin Urine Negative Negative [place] Blood, Urine LARGE Abnormal Negative [place] Clarity, UA CLOUDY Abnormal Clear [place] Color, UA ORANGE Abnormal Straw/Clay ow [place] Glucose, Ur 250 mg/dL Abnormal Negative [place] Ketones Ql (U) TRACE Abnormal Negative mg/dL [place] Leukocyte esterase Test strip Ql (U) LARGE Abnormal Negative [place] Nitrite, Urine Negative Negative [place], [place] pH, UA 6.5 [place] Protein (U) [Mass/Vol] 30 mg/dL Abnormal Negative [place] Specific [place], UA 1.018 [place] Urine Reflex to Culture Yes [place] Urobilinogen, Urine 0.2 <2.0 E.U./dL [place] XR CHEST PORTABLEon 04-30-20 20 No radiographic evid ence of acute intrathoracic process. [place] Exam: XR CHEST GAL BLE History: cough Technique: AP portable view of the chest obtained. Comparison: None Findings: The cardiomediastinal silhouette is within normal limits. There are no infiltrates, consolidations or effusions. Bones of the thorax appear intact. [place] Hemant, Chpo Incoming Radiant Results From [facility] - 04/30/2020 8:49 AM EST Exam: XR CHEST PORTABLE History: cough Technique: AP portable view of the chest obtained. Comparison: None Findings: The cardiomediastinal silhouette is within normal limits. There are no infiltrates, consolidations or effusions. Bones of the thorax appear intact. IMPRESSION: No radiographic evidence of acute intrathoracic process. [place] Comprehensive Metabolic Pane ben 04-29-2020 Albumin [Mass/Vol] 3.8 g/dL 3.5 - 4.6 g/dL [place] ALP [Catalytic activity/Vol] 82 U/L 40 - 130 U/L [place] ALT [Catalytic activity/Vol] 22 U/L 0 - 33 U/L [place] Comment on above: Specimen hemolysis h as exceeded the interference as defined by Mariah. Result may be affected. Suggest recollection if clinically indicated. Anion gap [Moles/Vol] 10 mmol/L [place] AST [Catalytic activity/Vol] 38 U/L High 0 - 35 U/L [place] Comment on above: Specimen hemolysis h as exceeded the interference as defined by Mariah. Value may be falsely increased. Suggest recollection if clinically indicated. Bilirubin Ql (U) 0.3 mg/dL 0.2 - 0.7 mg/dL [place] Calcium [Mass/Vol] 8.6 mg/dL 8.5 - 9.9 mg/dL [place] Chloride [Moles/Vol] 100 mmol/L [place] CO2 [Moles/Vol] 25 [facility]/L [facility] [place] Creatinine [Mass/Vol] 0.5 mg/dL 0.5 - 0.9 mg/dL [place] GFR >60.0 >60 [place] Comment on above: >60 mL/min/1.73m2 EG FR, calc. for ages 18 and older using the MDRD formula (not corrected for weight), is valid for stable renal function. GFR Non- >60.0 >60 [place] Comment on above: >60 mL/min/1.73m2 EG FR, calc. for ages 18 and older using the MDRD formula (not corrected for weight), is valid for stable renal function. Globulin (S) [Mass/Vol] 3.4 g/dL 2.3 - 3.5 g/dL [place] Glucose [Mass/Vol] 243 mg/dL High 70 - 99 mg/dL [place] Interpretation and review of laboratory results Abnormal [place] Potassium [Moles/Vol] 4.8 mmol/L [place] Comment on above: Specimen hemolysis h as exceeded the interference as defined by Mariah. Value may be falsely increased. Suggest recollection if clinically indicated. Protein [Mass/Vol] 7.2 g/dL 6.3 - 8 g/dL [place] Sodium [Moles/Vol] 135 mmol/L [place] Urea nitrogen [Mass/Vol] 9 mg/dL 6 - 20 mg/dL [place] Magnesiumon 04-29-2020 Magnesium [Mass/Vol] 1.9 mg/dL 1.7 - 2 .4 mg/dL [place] Microscopic Urinalysison Bacteria, UA RARE Abnormal Negative /HPF [place] Epithelial Cells, UA 10-20 [place] Hyaline Casts, UA 0-1 [place] Interpretation and review of laboratory results Abnormal [place] RBC (U) [#/Vol] /uL High [facility] [place] WBC, UA 3-5 [place] POCT urine pregnancyon 04-29 Interpretation and review of laboratory results Normal [place] Preg Test, Ur Negative [place] QC OK? yes [place] SPECIMEN REJECTIONon 020 Reason for Rejection see below [place], [place] Comment on above: Unable to perform te sting; specimen quantity not sufficient. To perform testing the specimen will need to be recollected. QNS Rejected Test CBCWD [place] Urinalysison 04-29-2020 Bilirubin Urine Negative [facility] [place] Blood, Urine LARGE Abnormal Negative [place] Clarity, UA Clear Clear [place] Color, UA Yellow Straw/Clay ow [place] Glucose, Ur 500 mg/dL Abnormal Negative [place] Interpretation and review of laboratory results Abnormal [place] Ketones Ql (U) Negative Negative mg/dL [place] Leukocyte esterase Test strip Ql (U) TRACE Abnormal Negative [place] Nitrite, Urine Negative Negative [place], [place] pH, UA 6.0 [place] Protein (U) [Mass/Vol] Negative Negat isabella mg/dL [place] Specific [place], UA 1.015 [place], [place] Urobilinogen, Urine 0.2 <2.0 E.U./dL [place] POCT Glucoseon 03-05-2020 Glucose [Mass/Vol] 345 mg/dL High 60 - 115 mg/dl [place] Interpretation and review of laboratory results Abnormal [place] Performed on ACCU-CHEK [place] Glucose [Mass/Vol] 397 mg/dL High 60 - 115 mg/dl [place] Interpretation and review of laboratory results Abnormal [place] Performed on ACCU-CHEK [place] Comment on above: Notified RN or MD CBC Auto Differentialon Basophils (Bld) [#/Vol] 0.1 10*3/uL 0 - 0.2 K/uL [place] Basophils/100 WBC (Bld) 0.7 % [place] Eosinophils (Bld) [#/Vol] 0.2 10*3/uL 0 - 0.7 K/uL [place] Eosinophils/100 WBC (Bld) 1.9 % [place] Erythrocyte distribution width (RBC) [Ratio] 15.9 % High 11.5 - 14.5 % [place] Hematocrit (Bld) [Volume fraction] 41.3 % 37 - 47 % [place] Hemoglobin (Bld) [Mass/Vol] 14.0 g/dL 12 - 16 g/dL [place] Interpretation and review of laboratory results Abnormal [place] Lymphocytes (Bld) [#/Vol] 2.3 10*3/uL 1 - 4.8 K/uL [place] Lymphocytes/100 WBC (Bld) 26.8 % [place] MCH (RBC) [Entitic mass] 28.3 pg 27 - 31.3 pg [place] MCHC (RBC) [Mass/Vol] 34.0 % 33 - 37 % [place] MCV (RBC) [Entitic vol] 83.3 fL 82 - 100 fL [place] Monocytes (Bld) [#/Vol] 0.6 10*3/uL 0.2 - 0.8 K/uL [place] Monocytes/100 WBC (Bld) 7.1 % [place] Neutrophils Absolute 5.5 K/uL 1.4 - 6 .5 K/uL [place] Neutrophils/100 WBC (Bld) 63.5 % [place] Platelets (Bld) [#/Vol] 237 10*3/uL 130 - 400 K/uL [place] RBC (Bld) [#/Vol] 4.96 10*6/uL [place] WBC (Bld) [#/Vol] 8.6 10*3/uL 4.8 - 10.8 K/uL [place] Comprehensive Metabolic Pane ben 03-04-2020 Albumin [Mass/Vol] 4.3 g/dL 3.5 - 4.6 g/dL [place] ALP [Catalytic activity/Vol] 87 U/L 40 - 130 U/L [place] ALT [Catalytic activity/Vol] 16 U/L 0 - 33 U/L [place] Anion gap [Moles/Vol] 11 mmol/L [place] AST [Catalytic activity/Vol] 18 U/L 0 - 35 U/L [place] Bilirubin Ql (U) 0.4 mg/dL 0.2 - 0.7 mg/dL [place] Calcium [Mass/Vol] 9.5 mg/dL 8.5 - 9.9 mg/dL [place] Chloride [Moles/Vol] 99 mmol/L [place] CO2 [Moles/Vol] 25 mmol/L [facility] [place] Creatinine [Mass/Vol] 0.6 mg/dL 0.5 - 0.9 mg/dL [place] GFR >60.0 >60 [place] Comment on above: >60 mL/min/1.73m2 EG FR, calc. for ages 18 and older using the MDRD formula (not corrected for weight), is valid for stable renal function. GFR Non- >60.0 >60 [place] Comment on above: >60 mL/min/1.73m2 EG FR, calc. for ages 18 and older using the MDRD formula (not corrected for weight), is valid for stable renal function. Globulin (S) [Mass/Vol] 2.8 g/dL 2.3 - 3.5 g/dL [place] Glucose [Mass/Vol] 545 mg/dL Critically high 70 - 9 9 mg/dL [place] Interpretation and review of laboratory results Abnormal [place] Potassium [Moles/Vol] 4.2 mmol/L [place] Protein [Mass/Vol] 7.1 g/dL 6.3 - 8 g/dL [place] Sodium [Moles/Vol] 135 mmol/L [place] Urea nitrogen [Mass/Vol] 15 mg/dL 6 - 20 mg/dL [place] Lactic Acid, Plasmaon 2019 Lactate [Moles/Vol] 2.2 mmol/L 0.5 - 2. 2 mmol/L [place] Lipaseon 03-04-2020 Lipase [Catalytic activity/Vol] 68 U/L 12 - 95 U/L [place] Metabolic Panelon 03-04-2020 Glucose [Mass/Vol] CALL [facility] tel. [phone], Glucose results called to and read back by carlos plaza, 03/04/2020 22:58, by JOEL [place] Microscopic Urinalysison Bacteria, UA Negative Negative /HPF [place] Epithelial Cells, UA 0-2 [place] Hyaline Casts, UA 0-1 [facility] [place], [place] RBC (U) [#/Vol] /uL [place] WBC, UA 3-5 [place] Otheron 03-04-2020 Interpretation and review of laboratory results Abnormal [place] Urine Reflex to Cultureon Bilirubin Urine Negative Negative [place], [place] Blood, Urine LARGE Abnormal Negative [place] Clarity, UA Clear Clear [place] Color, UA Yellow Straw/Clay ow [place] Glucose, Ur >=1000 Abnormal Negative mg/dL [place] Ketones Ql (U) Negative Negative mg/dL [place] Leukocyte esterase Test strip Ql (U) Negative Negative [place] Nitrite, Urine Negative Negative [place], [place] pH, UA 6.0 [place] Protein (U) [Mass/Vol] Negative Negat isabella mg/dL [place] Specific [place], UA 1.040 [place], [place] Urine Reflex to Culture Not Indicated [place] Urobilinogen, Urine 0.2 <2.0 E.U./dL [place] CBC Auto Differentialon 01-28 Basophils (Bld) [#/Vol] 0.1 10*3/uL 0 - 0.2 K/uL [place] Basophils/100 WBC (Bld) 1.2 % [place] Eosinophils (Bld) [#/Vol] 0.1 10*3/uL 0 - 0.7 K/uL [place] Eosinophils/100 WBC (Bld) 1.3 % [place] Erythrocyte distribution width (RBC) [Ratio] 15.4 % High 11.5 - 14.5 % [place] Hematocrit (Bld) [Volume fraction] 40.7 % 37 - 47 % [place] Hemoglobin (Bld) [Mass/Vol] 13.7 g/dL 12 - 16 g/dL [place] Interpretation and review of laboratory results Abnormal [place] Lymphocytes (Bld) [#/Vol] 2.3 10*3/uL 1 - 4.8 K/uL [place] Lymphocytes/100 WBC (Bld) 34.6 % [place] MCH (RBC) [Entitic mass] 27.5 pg 27 - 31.3 pg [place] MCHC (RBC) [Mass/Vol] 33.6 % 33 - 37 % [place] MCV (RBC) [Entitic vol] 82.0 fL 82 - 100 fL [place] Monocytes (Bld) [#/Vol] 0.5 10*3/uL 0.2 - 0.8 K/uL [place] Monocytes/100 WBC (Bld) 8.1 % [place] Neutrophils Absolute 3.7 K/uL 1.4 - 6 .5 K/uL [place] Neutrophils/100 WBC (Bld) 54.8 % [place] Platelets (Bld) [#/Vol] 235 10*3/uL 130 - 400 K/uL [place] RBC (Bld) [#/Vol] 4.96 10*6/uL [place] WBC (Bld) [#/Vol] 6.8 10*3/uL 4.8 - 10.8 K/uL [place] Comprehensive Metabolic Pane ben 02-19-2020 Albumin [Mass/Vol] 4.4 g/dL 3.5 - 4.6 g/dL [place] ALP [Catalytic activity/Vol] 80 U/L 40 - 130 U/L [place] ALT [Catalytic activity/Vol] 17 U/L 0 - 33 U/L [place] Anion gap [Moles/Vol] 12 mmol/L [place] AST [Catalytic activity/Vol] 21 U/L 0 - 35 U/L [place] Bilirubin Ql (U) 0.4 mg/dL 0.2 - 0.7 mg/dL [place] Calcium [Mass/Vol] 9.4 mg/dL 8.5 - 9.9 mg/dL [place] Chloride [Moles/Vol] 104 mmol/L [place] CO2 [Moles/Vol] 25 [facility]/L [facility] [place] Creatinine [Mass/Vol] 0.57 mg/dL 0.5 - 0.9 mg/dL [place] GFR >60.0 >60 [place] Comment on above: >60 mL/min/1.73m2 EG FR, calc. for ages 18 and older using the MDRD formula (not corrected for weight), is valid for stable renal function. GFR Non- >60.0 >60 [place] Comment on above: >60 mL/min/1.73m2 EG FR, calc. for ages 18 and older using the MDRD formula (not corrected for weight), is valid for stable renal function. Globulin (S) [Mass/Vol] 2.8 g/dL 2.3 - 3.5 g/dL [place] Glucose [Mass/Vol] 314 mg/dL High 70 - 99 mg/dL [place] Interpretation and review of laboratory results Abnormal [place] Potassium [Moles/Vol] 3.9 mmol/L [place] Protein [Mass/Vol] 7.2 g/dL 6.3 - 8 g/dL [place] Sodium [Moles/Vol] 141 mmol/L [place] Urea nitrogen [Mass/Vol] 14 mg/dL 6 - 20 mg/dL [place] CBC Auto Differentialon 08-2 Basophils (Bld) [#/Vol] 0.1 10*3/uL 0 - 0.2 K/uL [place] Basophils/100 WBC (Bld) 0.8 % [place] Eosinophils (Bld) [#/Vol] 0.2 10*3/uL 0 - 0.7 K/uL [place] Eosinophils/100 WBC (Bld) 2.4 % [place] Erythrocyte distribution width (RBC) [Ratio] 15.3 % High 11.5 - 14.5 % [place] Hematocrit (Bld) [Volume fraction] 37.2 % 37 - 47 % [place] Hemoglobin (Bld) [Mass/Vol] 12.6 g/dL 12 - 16 g/dL [place] Interpretation and review of laboratory results Abnormal [place] Lymphocytes (Bld) [#/Vol] 2.4 10*3/uL 1 - 4.8 K/uL [place] Lymphocytes/100 WBC (Bld) 34.6 % [place] MCH (RBC) [Entitic mass] 27.6 pg 27 - 31.3 pg [place] MCHC (RBC) [Mass/Vol] 33.8 % 33 - 37 % [place] MCV (RBC) [Entitic vol] 81.8 fL Low 82 - 100 fL [place] Monocytes (Bld) [#/Vol] 0.6 10*3/uL 0.2 - 0.8 K/uL [place] Monocytes/100 WBC (Bld) 9.2 % [place] Neutrophils Absolute 3.7 K/uL 1.4 - 6 .5 K/uL [place] Neutrophils/100 WBC (Bld) 53.0 % [place] Platelets (Bld) [#/Vol] 247 10*3/uL 130 - 400 K/uL [place] RBC (Bld) [#/Vol] 4.55 10*6/uL [place] WBC (Bld) [#/Vol] 7.0 10*3/uL 4.8 - 10.8 K/uL [place] Comprehensive Metabolic Pane ben 02-17-2020 Albumin [Mass/Vol] 4.1 g/dL 3.5 - 4.6 g/dL [place] ALP [Catalytic activity/Vol] 77 U/L 40 - 130 U/L [place] ALT [Catalytic activity/Vol] 21 U/L 0 - 33 U/L [place] Anion gap [Moles/Vol] 8 mmol/L Low [place] AST [Catalytic activity/Vol] 18 U/L 0 - 35 U/L [place] Bilirubin Ql (U) 0.3 mg/dL 0.2 - 0.7 mg/dL [place] Calcium [Mass/Vol] 8.8 mg/dL 8.5 - 9.9 mg/dL [place] Chloride [Moles/Vol] 103 mmol/L [place] CO2 [Moles/Vol] 25 mmol/L [place] Creatinine [Mass/Vol] 0.48 mg/dL Low 0.5 - 0.9 mg/dL [place] GFR >60.0 >60 [place] Comment on above: >60 mL/min/1.73m2 EG FR, calc. for ages 18 and older using the MDRD formula (not corrected for weight), is valid for stable renal function. GFR Non- >60.0 >60 [place] Comment on above: >60 mL/min/1.73m2 EG FR, calc. for ages 18 and older using the MDRD formula (not corrected for weight), is valid for stable renal function. Globulin (S) [Mass/Vol] 2.9 g/dL 2.3 - 3.5 g/dL [place] Glucose [Mass/Vol] 265 mg/dL High 70 - 99 mg/dL [place] Interpretation and review of laboratory results Abnormal [place] Potassium [Moles/Vol] 3.6 mmol/L [place] Protein [Mass/Vol] 7.0 g/dL 6.3 - 8 g/dL [place] Sodium [Moles/Vol] 136 mmol/L [place] Urea nitrogen [Mass/Vol] 12 mg/dL 6 - 20 mg/dL [place] Microscopic Urinalysison Bacteria, UA RARE Abnormal Negative /HPF [place] Epithelial Cells, UA 10-20 [place] Hyaline Casts, UA 0-1 [place] RBC (U) [#/Vol] /uL [place] WBC, UA 10-20 Abnormal [place] Otheron 02-16-2020 Interpretation and review of laboratory results Abnormal [place] Urine Reflex to Cultureon Bilirubin Urine Negative Negative [place] Blood, Urine LARGE Abnormal Negative [place] Clarity, UA Clear Clear [place] Color, UA ORANGE Abnormal Straw/Clay ow [place] Glucose, Ur >=1000 Abnormal Negative mg/dL [place] Ketones Ql (U) TRACE Abnormal Negative mg/dL [place] Leukocyte esterase Test strip Ql (U) Negative Negative [place] Nitrite, Urine Negative Negative [place], [place] pH, UA 5.0 [place] Protein (U) [Mass/Vol] Negative Negat isabella mg/dL [place] Specific [place], UA 1.044 [place] Urine Reflex to Culture Yes [place] Urobilinogen, Urine 0.2 <2.0 E.U./dL [place] XR SHOULDER RIGHT (MIN 2 VIE WS)on 02-16-2020 PA and outlet view o f the right shoulder was obtained today to evaluate for any degenerative changes. The glenohumeral joint is well-preserved. Normal alignment of the head to the glenoid. Minimal type II acromium. [place] Metabolic Panelon 01-26-2020 Glucose [Mass/Vol] 217 mg/dL above high threshold 74 - 99 [facility] Work Phone: Glucose [Mass/Vol] 187 mg/dL above high threshold 74 - 99 [facility] [employer] Work Phone: Otheron 01-26-2020 Name GISEL CARLTON Pathologist: Dex CROCKETT of Procedure: 01/26/2020Date Received: 01/26/2020Date Reported 01/30/2020Submitting Physician: JONE MEYERS MDLocation[facility] Other External # FINAL DIAGNOSISA. TONSILS: -- FOLLICULAR HYPERPLASIA. NO OTHER DIAGNOSTIC CHANGES PRESENT. Electronically Signed Out By HODA PALENCIA DO/Pranay the signature on this report, the individual or group listed as making theFinal Interpretation/Diagnosis certifies that they have reviewed this case. Clinical History:hypertrophy of tonsilsSpecimens Submitted As:A: TONSILS Gross Description:Received in formalin fixative, labeled with the patient's name, hospital numberand Tonsils , are two hoover to brown, cerebriform, ovoid, soft tissue fragments. They measure 2.9 x 2.2 x 1.5 cm, and 3.1 x 1.8 x 1.5 cm. On section thetissue is hoover to pink, lobated, and soft. Also in the container is oneirregular dark brown fragment of possible blood clot, measuring 2.4 x 1.5 x 0.5cm. Workers' Compensation Mediator sections from all fragments are submitted in two cassettes.TAStas/ 0 [employer] Work Phone: CT Abdomen and Pelvis withou t Contraston 01-24-2020 CT Abdomen and Pelvis WO contrast Interpreted by: TUNDE STALEY01/24/20 12:42STUDY:CT Abdomen and Pelvis without IV Contrast; 01/24/20 at 11:36 AM. INDICATION:Right flank pain. Hx renal stones, cholecystectomy, hysterectomy,hernia repair. COMPARISON:CT AP 11/20/2019 ORDERING CLINICIAN:TETO BLACKBURN MD TECHNIQUE:CT of the abdomen and pelvis was performed. Contiguous axial imageswere obtained at 3 mm slice thickness through the abdomen and pelvis. Coronal and sagittal reconstructions at 3 mm slice thickness wereperformed. No intravenous contrast was administered. Automated mA/kV exposure control was utilized and patient examinationwas performed in strict accordance with principles of ALARA. FINDINGS: Computed tomography of the abdomen and pelvis was performed withoutintravenous contrast. Lack of contrast limits evaluation of solidorgans and vascular structures. Visualized portions of the chest demonstrate no acute abnormality. Punctate right renal calcification. No evidence for obstruction ofeither kidney. Stable calcifications which overlie the psoas musclesdo not reside within the ureters. Moderate hepatomegaly (22.5 cm). Liver decreased in attenuationsuggesting fatty metamorphosis. Spleen, pancreas and adrenal glandsappear within normal limits for an unenhanced scan. Cholecystectomy. Stomach and small bowel demonstrate no gross abnormality. Putativeappendix appears within normal limits. Stool noted in the colon,inherently limiting evaluation. Should colonic lesion be aconsideration, barium enema or colonoscopy may be helpful for furtherevaluation. No evidence for intestinal obstruction. Abdominal aorta demonstrates no aneurysmal dilatation. No significant abdominal or pelvic adenopathy is visualized althoughevaluation for lymph nodes is limited by absence of intravenouscontrast. History of hysterectomy. Bladder demonstrates no gross abnormality. Review of entire examination on bone window settings demonstrates noacute bony abnormality. Impression: Punctate right renal calcification. No evidence for obstruction ofeither kidney. Signed by Tunde Staley D.O.Electronically signed by: TUNDE STALEY 01/24/20 12:42 Normal [employer] Work Phone: Comment on above: Ordering Provider: Judi BLACKBURN [id number] Complete Blood Count + Difflevi segura 01-24-2020 Basophils (Bld) [#/Vol] 0.06 {x10E9/L} See Below [facility] Work Phone: Comment on above: Reference Range: 0.0 0 - 0.10 Ordering Provider: Judi BLACKBURN [id number] Basophils/100 WBC (Bld) 0.7 % 0.0 - 2.0 [facility] Work Phone: Comment on above: Ordering Provider: Judi BLACKBURN [id number] Eosinophils (Bld) [#/Vol] 0.20 {x10E9/L} See Below -Otolaryngo [facility] Work Phone: Comment on above: Reference Range: 0.0 0 - 0.70 Ordering Provider: Judi BLACKBURN [id number] Eosinophils/100 WBC (Bld) 2.4 % 0.0 - 6.0 [facility]aryngo [facility] Work Phone: Comment on above: Ordering Provider: Judi BLACKBURN [id number] Erythrocyte distribution width (RBC) [Ratio] 14.0 % See Below -Otolaryngo [facility] Work Phone: Comment on above: Reference Range: 11. 5 - 14.5 Ordering Provider: Judi BLACKBURN [id number] Hematocrit (Bld) [Volume fraction] 39.5 % See Below -Otolaryngo [facility] Work Phone: Comment on above: Reference Range: 36. 0 - 46.0 Ordering Provider: Judi BLACKBURN [id number] Hemoglobin (Bld) [Mass/Vol] 13.1 g/dL See Below -[facility] Work Phone: Comment on above: Reference Range: 12. 0 - 16.0 Ordering Provider: Judi BLACKBURN [id number] Lymphocytes (Bld) [#/Vol] 2.10 {x10E9/L} See Below -[facility] Work Phone: Comment on above: Reference Range: 1.2 0 - 4.80 Ordering Provider: Judi BLACKBURN 10059 Lymphocytes/100 WBC (Bld) 25.7 % See Below -[facility] Work Phone: Comment on above: Reference Range: 13. 0 - 44.0 Ordering Provider: Judi BLACKBURN [id number] MCHC (RBC) [Mass/Vol] 33.2 g/dL See Below - [facility] Work Phone: Comment on above: Reference Range: 32. 0 - 36.0 Ordering Provider: Judi BLACKBURN [id number] MCV (RBC) [Entitic vol] 80 fL 80 - 100 [facility]-Otolaryngo [facility] Work Phone: Comment on above: Ordering Provider: Judi NAHEEDFARHAT BLACKBURN [id number] Monocytes (Bld) [#/Vol] 0.59 {x10E9/L} See Below MP-Otolaryngo [facility] Work Phone: Comment on above: Reference Range: 0.1 0 - 1.00 Ordering Provider: Judi BLACKBURN [id number] Monocytes/100 WBC (Bld) 7.2 % 2.0 - 10.0 MP-Otolaryngo [facility] 360[facility] d Work Phone: Comment on above: Ordering Provider: Judi BLACKBURN 84796 Neutrophils (Bld) [#/Vol] 5.20 {x10E9/L} See Below MP-Otolaryngo [employer] 360ffiel d Work Phone: Comment on above: Reference Range: 1.2 0 - 7.70 Ordering Provider: Judi NAHEEDFARHAT BLACKBURN 06520 Neutrophils/100 WBC (Bld) 63.8 % See Below MP-Otolaryngo logy-[employer] 360ffiel d Work Phone: Comment on above: Reference Range: 40. 0 - 80.0 Ordering Provider: Judi BLACKBURN 43017 Platelets (Bld) [#/Vol] 292 {x10E9/L} 150 - 450 MP-Otolaryngo [employer] 360ffiel d Work Phone: Comment on above: Ordering Provider: Judi NAHEEDFARHAT BLACKBURN 24474 RBC (Bld) [#/Vol] 4.96 {x10E12/L} See Below MP -Otolaryngo logy-Sheffiel d Work Phone: Comment on above: Reference Range: 4.0 0 - 5.20 Ordering Provider: Judi BLACKBURN 07409 WBC (Bld) [#/Vol] 8.2 {x10E9/L} 4.4 - 11.3 MP-O tolaryngo logy-Sheffiel d Work Phone: Comment on above: Ordering Provider: Judi BLACKBURN 97662 Complete Blood Count + Differential 0.2 % 0.0 - 0.9 MP-Otolaryngo logy-Sheffiel d Work Phone: Comment on above: Immature Granulocyte Count (IG) includes promyelocytes, myelocytes and metamyelocytes but does not include bands. Percent differential counts (%) should be interpreted in the context of the absolute cell counts (cells/L). Ordering Provider: Judi Carney00 Metabolic Panelon 01-24-2020 ALP [Catalytic activity/Vol] 84 U/L 33 - 110 MP-Otolaryngo logy-Sheffiel d Work Phone: Comment on above: Ordering Provider: Judi Carney00 Anion gap [Moles/Vol] 16 mmol/L 10 - 20 MP- Otolaryngo logy-Sheffiel d Work Phone: Comment on above: Ordering Provider: Judi BLACKBURN 55838 Bilirubin [Mass/Vol] 0.5 mg/dL 0.0 - 1.2 MP-O tolaryngo logy-Sheffiel d Work Phone: Comment on above: Ordering Provider: Judi BLACKBURN 21764 Calcium [Mass/Vol] 9.6 mg/dL 8.6 - 10.3 MP-Desha laryngo logy-Sheffiel d Work Phone: Comment on above: Ordering Provider: Judi BLACKBURN 30602 Chloride [Moles/Vol] 102 mmol/L 98 - 107 MP-O tolaryngo logy-Sheffiel d Work Phone: Comment on above: Ordering Provider: uJdi BLACKBURN 06513 CO2 [Moles/Vol] 24 mmol/L 21 - 32 MP-Otolar yngo logy-Sheffiel d Work Phone: Comment on above: Ordering Provider: Judi JAVIERKarl BERE 51058 Creatinine [Mass/Vol] 0.64 mg/dL See Below MP- Otolaryngo logy-Sheffiel d Work Phone: Comment on above: Reference Range: 0.5 0 - 1.05 Ordering Provider: Judi EMMA Thakur Glucose [Mass/Vol] 103 mg/dL above high threshold 74 - 99 MP-Otolaryngo logy-Sheffiel d Work Phone: [phone] Comment on above: Ordering Provider: Judi JAVIERKarl BERE 76785 Potassium [Moles/Vol] 3.7 mmol/L 3.5 - 5.3 MP- Otolaryngo logy-Sheffiel d Work Phone: [phone] Comment on above: Ordering Provider: Judi JAVIERKarl BERE 13208 Protein [Mass/Vol] 7.9 g/dL 6.4 - 8.2 MP-Eugenio laryngo [employer] 360ffiel d Work Phone: [phone] Comment on above: Ordering Provider: Judi JAVIERKarl BERE 66556 Sodium [Moles/Vol] 138 mmol/L 136 - 145 MP-Eugenio laryngo logy-Visual Pro 360ffTARGET BRAZIL d Work Phone: [phone] Comment on above: Ordering Provider: Judi JAVIERKarl BERE 91857 Urea nitrogen [Mass/Vol] 16 mg/dL 6 - 23 MP-Otolaryngo [employer]ff[employer] BRAZIL d Work Phone: Comment on above: Ordering Provider: Judi EMMA BLACKBURN 72590 Otheron 01-24-2020 Albumin BCP dye [Mass/Vol] 4.3 g/dL 3.4 - 5.0 MP-Otolaryngo [employer] 360ff[employer] BRAZIL d Work Phone: [phone] Comment on above: Ordering Provider: Judi NAHEEDFARHAT BLACKBURN 35287 ALT With P-5'-P [Catalytic activity/Vol] 20 U/L 7 - 45 MP-Otolaryngo [employer] 360[employer]iel d Work Phone: Comment on above: Patients treated wit h Sulfasalazine may generate falsely decreased results for ALT. Ordering Provider: Judi NAHEEDFARHAT BLACKBURN 20667 AST With P-5'-P [Catalytic activity/Vol] 19 U/L 9 - 39 MP-Otolaryngo [employer] 360[employer]iel d Work Phone: Comment on above: Ordering Provider: Judi BLACKBURN 49070 >60 >60 MP-Otolaryngo Castillo d Work Phone: Comment on above: Ordering Provider: Judi BLACKBURN 62591 CALCULATIONS OF BRE MATED GFR ARE PERFORMED USING THE MDRD STUDY EQUATION FOR THE IDMS-TRACEABLE CREATININE METHODS. CLIN CHEM 2007;53:766-72 NOT DETECTED See Below MP-Otolaryng o Castilol d Work Phone: Comment on above: SOURCE: Nasal, Nasop haryngealReference Range: Not Detected.This assay is designed to detect SARS-CoV-2 based on replication of specific regions of the RNA from the SARS-CoV-2 virus. A Not Detected result does not preclude 2019-nCoV infection since the adequacy of sample collection and/or low viral burden may result in presence of viral nucleic acids below the clinical sensitivity of this test method. Fact sheet for providers: https://www.fda.gov/media/721153/downloadFact sheet for patients: https://www.fda.gov/media/374922/downloadThis test has received FDA Emergency Use Authorization [EUA] and has been verified by [facility] ([facility]). This test is only authorized for the duration of time that circumstances exist to justify the authorization of the emergency use of in vitro diagnostic tests for the detection of SARS-CoV-2 virus and/or diagnosis of COVID-19 infection under section 564(b)(1) of the Act, 21 U.S.C. 360bbb-3(b)(1), unless the authorization is terminated or revoked sooner. [facility] is certified under CLIA-88 as qualified to perform high complexity testing. Testing is performed in the [facility] laboratories located at [address] [place] [address]. Urinalysison 01-24-2020 Appearance (U) HAZY CLEAR MP-Otolary salgado Castillo little Work Phone: Comment on above: Ordering Provider: Judi BLACKBURN 83581 Color (U) YELLOW See Below MP-Otolaryngo Kingiel d Work Phone: Comment on above: Reference Range: STR AW,YELLOW Ordering Provider: Judi BLACKBURN 43033 Glucose Ql (U) Negative NEGATIVE MP-Otolary salgado logy-Sheffiel d Work Phone: Comment on above: Ordering Provider: Judi BLACKBURN 46861 Ketones Ql (U) Negative NEGATIVE MP-Otolary salgado logy-Sheffiel d Work Phone: Comment on above: Ordering Provider: Judi BLACKBURN 51430 Leukocyte esterase Test strip Ql (U) LARGE (3+) Abnormal NEGATIVE MP-Otolaryngo logy-Sheffiel d Work Phone: Comment on above: Ordering Provider: Judi BLACKBURN 48619 pH (U) 7.0 [pH] 5.0 - 8.0 MP-Otolaryngo logy-Sheffiel d Work Phone: Comment on above: Ordering Provider: Judi BLACKBURN 83158 Protein (U) [Mass/Vol] Negative NEGATIVE MP -Otolaryngo logy-Sheffiel d Work Phone: Comment on above: Ordering Provider: Judi BLACKBURN 91297 RBC (U) [#/Vol] LARGE (3+) Abnormal NEGATIVE MP-Otolar yngo logy-Sheffiel d Work Phone: Comment on above: Ordering Provider: Judi BLACKBURN 84687 Specific gravity (U) [Rel density] 1.017 1 See Below MP-Otolaryngo logy-Sheffiel d Work Phone: Comment on above: Reference Range: 1.0 05 - 1.035 Ordering Provider: Judi BLACKBURN 11409 Urinalysis <2.0 0.0 - 1.9 MP-Otolaryngo logy-Sheffiel d Work Phone: Comment on above: Ordering Provider: Judi BLACKBURN 36329 Urinalysis Negative NEGATIVE MP-Otolaryngo logy-Sheffiel d Work Phone: Comment on above: Ordering Provider: Judi Thakur Urinalysis, Microscopicon RBC (Bld) [#/Vol] >182 Abnormal 0-5 MP-Otol aryngo logy-Sheffiel d Work Phone: Comment on above: Ordering Provider: Judi Thakur Urinalysis, Microscopic 3+ MP-Otolaryngo logy-Sheffiel d Work Phone: Comment on above: Ordering Provider: Judi Thakur Urinalysis, Microscopic NONE 0-5 MP-Otolaryngo logy-Sheffiel d Work Phone: Comment on above: Ordering Provider: Judi Thakur Urinalysis, Microscopic 48 {/HPF} MP-Otolaryngo logy-Sheffiel d Work Phone: Comment on above: Ordering Provider: Judi Thakur CBC Auto Differentialon 12-27 Basophils (Bld) [#/Vol] 0.2 10*3/uL 0 - 0.2 K/uL [place] Basophils/100 WBC (Bld) 1.9 % [place] Eosinophils (Bld) [#/Vol] 0.2 10*3/uL 0 - 0.7 K/uL [place] Eosinophils/100 WBC (Bld) 1.9 % [place] Erythrocyte distribution width (RBC) [Ratio] 15.6 % High 11.5 - 14.5 % [place] Hematocrit (Bld) [Volume fraction] 39.6 % 37 - 47 % [place] Hemoglobin (Bld) [Mass/Vol] 13.2 g/dL 12 - 16 g/dL [place] Interpretation and review of laboratory results Abnormal [place] Lymphocytes (Bld) [#/Vol] 2.9 10*3/uL 1 - 4.8 K/uL [place] Lymphocytes/100 WBC (Bld) 34.3 % [place] MCH (RBC) [Entitic mass] 27.1 pg 27 - 31.3 pg [place] MCHC (RBC) [Mass/Vol] 33.4 % 33 - 37 % [place] MCV (RBC) [Entitic vol] 81.2 fL Low 82 - 100 fL [place] Monocytes (Bld) [#/Vol] 0.6 10*3/uL 0.2 - 0.8 K/uL [place] Monocytes/100 WBC (Bld) 6.8 % [place] Neutrophils Absolute 4.6 K/uL 1.4 - 6 .5 K/uL [place] Neutrophils/100 WBC (Bld) 55.1 % [place] Platelets (Bld) [#/Vol] 342 10*3/uL 130 - 400 K/uL [place] RBC (Bld) [#/Vol] 4.88 10*6/uL [place] WBC (Bld) [#/Vol] 8.4 10*3/uL 4.8 - 10.8 K/uL [place] Comprehensive Metabolic Pane ben 01-13-2020 Albumin [Mass/Vol] 4.2 g/dL 3.5 - 4.6 g/dL [place] ALP [Catalytic activity/Vol] 83 U/L 40 - 130 U/L [place] ALT [Catalytic activity/Vol] 23 U/L 0 - 33 U/L [place] Comment on above: Specimen hemolysis h as exceeded the interference as defined by Mariah. Result may be affected. Suggest recollection if clinically indicated. Anion gap [Moles/Vol] 15 mmol/L [place] AST [Catalytic activity/Vol] 28 U/L 0 - 35 U/L [place] Comment on above: Specimen hemolysis h as exceeded the interference as defined by Mariah. Value may be falsely increased. Suggest recollection if clinically indicated. Bilirubin Ql (U) <0.2 0.2 - 0.7 mg/dL [place] Calcium [Mass/Vol] 9.8 mg/dL 8.5 - 9.9 mg/dL [place] Chloride [Moles/Vol] 100 mmol/L [place] CO2 [Moles/Vol] 22 [facility] [place] Creatinine [Mass/Vol] 0.62 mg/dL 0.5 - 0.9 mg/dL [place] GFR >60.0 >60 [place] Comment on above: >60 mL/min/1.73m2 EG FR, calc. for ages 18 and older using the MDRD formula (not corrected for weight), is valid for stable renal function. GFR Non- >60.0 >60 [place] Comment on above: >60 mL/min/1.73m2 EG FR, calc. for ages 18 and older using the MDRD formula (not corrected for weight), is valid for stable renal function. Globulin (S) [Mass/Vol] 3.7 g/dL High 2.3 - 3.5 g/dL [place] Glucose [Mass/Vol] 374 mg/dL High 70 - 99 mg/dL [place] Interpretation and review of laboratory results Abnormal [place] Potassium [Moles/Vol] 4.6 mmol/L [place] Comment on above: Specimen hemolysis h as exceeded the interference as defined by Mariah. Value may be falsely increased. Suggest recollection if clinically indicated. Protein [Mass/Vol] 7.9 g/dL 6.3 - 8 g/dL [place] Sodium [Moles/Vol] 137 mmol/L [place] Urea nitrogen [Mass/Vol] 18 mg/dL 6 - 20 mg/dL [place] Lactate, Sepsison 01-13-2020 Interpretation and review of laboratory results Abnormal [place] Lactic Acid, Sepsis 3.1 mmol/L Critically high 0.5 - 1.9 mmol/L [place] [facility] tel. [phone], Lactic acid results called to and read back by Grace Sutherland, 01/13/2020 23:06, by TORRI [place] Lipaseon 01-13-2020 Lipase [Catalytic activity/Vol] 56 U/L 12 - 95 U/L [place] Microscopic Urinalysison Bacteria, UA MODERATE Abnormal Negative /HPF [place] Epithelial Cells, UA 10-20 [place] Hyaline Casts, UA 1-3 [facility] [place], [place] RBC (U) [#/Vol] /uL [place] WBC, UA 50-100 Abnormal [place] Otheron 01-13-2020 Interpretation and review of laboratory results Abnormal [place] POCT CREATININEon 01-13-2020 Creatinine [Mass/Vol] 0.6 mg/dL [place] Interpretation and review of laboratory results Normal [place] Urine Reflex to Cultureon Bilirubin Urine Negative Negative [place] Blood, Urine LARGE Abnormal Negative [place] Clarity, UA CLOUDY Abnormal Clear [place] Color, UA RED Abnormal Straw/Clay ow [place] Glucose, Ur >=1000 Abnormal Negative mg/dL [place] Ketones Ql (U) TRACE Abnormal Negative mg/dL [place] Leukocyte esterase Test strip Ql (U) SMALL Abnormal Negative [place] Nitrite, Urine Negative Negative [place] pH, UA 6.0 [place] Protein (U) [Mass/Vol] Negative Negat isabella mg/dL [place] Specific [place], UA 1.038 [place] Urine Reflex to Culture Yes [place] Urobilinogen, Urine 0.2 <2.0 E.U./dL [place] Amylaseon 01-08-2020 Amylase [Catalytic activity/Vol] 44 U/L 22 - 93 U/L [place] CBC Auto Differentialon 12-27 Basophils (Bld) [#/Vol] 0.1 10*3/uL 0 - 0.2 K/uL [place] Basophils/100 WBC (Bld) 0.9 % [place] Eosinophils (Bld) [#/Vol] 0.2 10*3/uL 0 - 0.7 K/uL [place] Eosinophils/100 WBC (Bld) 2.4 % [place] Erythrocyte distribution width (RBC) [Ratio] 15.3 % High 11.5 - 14.5 % [place] Hematocrit (Bld) [Volume fraction] 41.5 % 37 - 47 % [place] Hemoglobin (Bld) [Mass/Vol] 13.9 g/dL 12 - 16 g/dL [place] Lymphocytes (Bld) [#/Vol] 2.3 10*3/uL 1 - 4.8 K/uL [place] Lymphocytes/100 WBC (Bld) 30.4 % [place] MCH (RBC) [Entitic mass] 26.7 pg Low 27 - 31.3 pg [place] MCHC (RBC) [Mass/Vol] 33.6 % 33 - 37 % [place] MCV (RBC) [Entitic vol] 79.5 fL Low 82 - 100 fL [place] Monocytes (Bld) [#/Vol] 0.5 10*3/uL 0.2 - 0.8 K/uL [place] Monocytes/100 WBC (Bld) 7.3 % [place] Neutrophils Absolute 4.4 K/uL 1.4 - 6 .5 K/uL [place] Neutrophils/100 WBC (Bld) 59.0 % [place] Platelets (Bld) [#/Vol] 327 10*3/uL 130 - 400 K/uL [place] RBC (Bld) [#/Vol] 5.23 10*6/uL [place] WBC (Bld) [#/Vol] 7.4 10*3/uL 4.8 - 10.8 K/uL [place] Comprehensive Metabolic Pane l w/ Reflex to MGon 01-08-2020 Albumin [Mass/Vol] 4.7 g/dL High 3.5 - 4.6 g/dL [place] ALP [Catalytic activity/Vol] 83 U/L 40 - 130 U/L [place] ALT [Catalytic activity/Vol] 20 U/L 0 - 33 U/L [place] Anion gap [Moles/Vol] 12 mmol/L [place] AST [Catalytic activity/Vol] 21 U/L 0 - 35 U/L [place] Bilirubin Ql (U) 0.3 mg/dL 0.2 - 0.7 mg/dL [place] Calcium [Mass/Vol] 10.6 mg/dL High 8.5 - 9.9 mg/dL [place] Chloride [Moles/Vol] 101 mmol/L [place] CO2 [Moles/Vol] 25 mmol/L [place] Creatinine [Mass/Vol] 0.53 mg/dL 0.5 - 0.9 mg/dL [place] GFR >60.0 >60 [place] Comment on above: >60 mL/min/1.73m2 EG FR, calc. for ages 18 and older using the MDRD formula (not corrected for weight), is valid for stable renal function. GFR Non- >60.0 >60 [place] Comment on above: >60 mL/min/1.73m2 EG FR, calc. for ages 18 and older using the MDRD formula (not corrected for weight), is valid for stable renal function. Globulin (S) [Mass/Vol] 3.6 g/dL High 2.3 - 3.5 g/dL [place] Glucose [Mass/Vol] 147 mg/dL High 70 - 99 mg/dL [place] Interpretation and review of laboratory results Abnormal [place] Potassium [Moles/Vol] 4.3 mmol/L [place] Protein [Mass/Vol] 8.3 g/dL High 6.3 - 8 g/dL [place] Sodium [Moles/Vol] 138 mmol/L [place] Urea nitrogen [Mass/Vol] 17 mg/dL 6 - 20 mg/dL [place] Lipaseon 01-08-2020 Lipase [Catalytic activity/Vol] 26 U/L 12 - 95 U/L [place] Microscopic Urinalysison Bacteria, UA FEW Abnormal Negative /HPF [place] Epithelial Cells, UA 6-10 [place] Hyaline Casts, UA 0-1 [place] Interpretation and review of laboratory results Abnormal [place] RBC (U) [#/Vol] /uL [place] WBC, UA 20-50 Abnormal [place] Bacteria, UA FEW Abnormal Negative /HPF [place] Epithelial Cells, UA 6-10 [place] Hyaline Casts, UA 3-5 [place] RBC (U) [#/Vol] /uL [place] WBC, UA 20-50 Abnormal [place] Otheron 01-08-2020 Interpretation and review of laboratory results Abnormal [place] Interpretation and review of laboratory results Abnormal [place] Urinalysis, reflex to micros copicon 01-08-2020 Bilirubin Urine Negative Negative [place] Blood, Urine LARGE Abnormal Negative [place] Clarity, UA CLOUDY Abnormal Clear [place] Color, UA Yellow Straw/Clay ow [place] Glucose, Ur Negative Negative mg/dL [place] Ketones Ql (U) TRACE Abnormal Negative mg/dL [place] Leukocyte esterase Test strip Ql (U) MODERATE Abnormal Negative [place] Nitrite, Urine Negative Negative [place] pH, UA 5.0 [place] Protein (U) [Mass/Vol] TRACE Abnormal Negat isabella mg/dL [place] Specific [place], UA 1.028 [place] Urobilinogen, Urine 0.2 <2.0 E.U./dL [place] Urine Reflex to Cultureon Bilirubin Urine Negative Negative [place] Blood, Urine LARGE Abnormal Negative [place] Clarity, UA CLOUDY Abnormal Clear [place] Color, UA Yellow Straw/Clay ow [place] Glucose, Ur Negative Negative mg/dL [place] Ketones Ql (U) TRACE Abnormal Negative mg/dL [place] Leukocyte esterase Test strip Ql (U) MODERATE Abnormal Negative [place] Nitrite, Urine Negative Negative [place] pH, UA 5.0 [place] Protein (U) [Mass/Vol] TRACE Abnormal Negat isabella mg/dL [place] Specific [place], UA 1.027 [place] Urine Reflex to Culture Yes [place] Urobilinogen, Urine 0.2 <2.0 E.U./dL [place] ED Provider Noteon 0 ED Provider Note Provider Note - ED v 2: Chart Review: HISTORY OF PRESENTING ILLNESS GISEL is a 44 year old Female and was seen by me at 07-Nov-2019 04:10 for a chief complaint of abdominal pain. The historian is the patient. Additional Details: Chief complaint abdominal pain History of present illness 44-year-old female who had the onset of abdominal pain periumbilical radiating to right lower quadrant with anorexia and nausea vomiting. Rated a moderate severity. She denies history of bowel obstruction or appendectomy. She denies urgency frequency dysuria vaginal bleeding vaginal discharge or flank pain history kidney, stones Triage Information: Most recent Vital Sign Value Date Temp (F): 97.8 11-07-2019 04:13 Temp (C): 36.6 11-07-2019 04:13 Heart Rate (beats/min): 149 11-07-2019 04:13 Respirations (breaths/min): 22 11-07-2019 04:13 SpO2 (%): 97 11-07-2019 04:13 BP Systolic (mm Hg): 185 11-07-2019 04:13 BP Diastolic (mm Hg): 90 11-07-2019 04:13 PAST MEDICAL HISTORY ATTESTATION: I have reviewed and confirmed nurse's/medic's notes for patient's medications, allergies, medical history, and surgical history ALLERGIES/INTOLERANCES: Allergy Allergen: Demerol HCl Type: Drug Reaction: Hives/Urticaria Allergen: penicillin Type: Drug Reaction: Hives/Urticaria Allergen: azithromycin Type: Drug Reaction: Hives/Urticaria Allergen: Toradol Type: Drug Reaction: Hives/Urticaria Allergen: Nubain Type: Drug Reaction: Hives/Urticaria Allergen: morphine Type: Drug Reaction: Hives/Urticaria Allergen: fentanyl Type: Drug Reaction: Hives/Urticaria HEALTH HISTORY: Medical History Name:Calculus of right kidney Code:N20.0 Name:Gastroesophageal reflux disease Code:K21.9 Name:Type 2 diabetes mellitus Code:E11.9 Name:HLD (hyperlipidemia) Code:E78.5 OUTPATIENT MEDICATIONS: Home Medications Review Status for Reconciliation: N/A Med Status: Incomplete Medication History Drug Name: Tresiba 100 units/mL subcutaneous solution Instructions: 100 unit(s) subcutaneous once a day Drug Name: HumaLOG 100 units/mL injectable solution Instructions: 40 unit(s) injectable 3 times a day Drug Name: PriLOSEC 20 mg oral delayed release capsule Instructions: 1 cap(s) orally once a day Drug Name: Crestor 20 mg oral tablet Instructions: 1 tab(s) orally once a day Drug Name: metFORMIN 500 mg oral tablet Instructions: 1 tab(s) orally 2 times a day SIGNIFICANT EVENTS: Past Medical History Description:GERD Description:Diabetes Description:Hyperlipidemi a Description:kidney stones Description:kidney infection Past Surgical History Description:Hysterectomy Description:leg surgery Description:Cholecystecto my Description:Hernia repair Description:carpel tunner release CHIEF ENVIRONMENTAL COMMITMENT OFFICER: Is : no Is : no REVIEW OF SYSTEMS All other systems reviewed and are negative PHYSICAL EXAM CONSTITUTIONAL: Appearance: ILL APPEARING Development: well developed Distress: MODERATE Manner: appropriate for situation Mentation: awake and alert Mood: appropriate Nourishment: OBESE HENMT: Airway patent, ears with clear tympanic membranes bilaterally. Nasal mucosa clear. Mouth with normal mucosa. Throat has no vesicles, no oropharyngeal exudates and uvula is midline. Face with no lymph node enlargement. EYES: Clear bilaterally, pupils equal, round and reactive to light. CARDIOVASCULAR: Normal rate, regular rhythm. Heart sounds S1, S2. No murmurs, rubs or gallops. PMI non-displaced. RESPIRATORY: Breath sounds clear and equal bilaterally. GASTROINTESTINAL: Abdominal Exam: FIRM Masses: no pulsating masses Bowel Sounds Detail: Bowel Sounds: normal Bowel Sounds Absent: DIFFUSE Abdominal Tenderness: RIGHT LOWER QUADRANT and PERIUMBILICAL Abdominal Guarding: no guarding Rebound: no rebound tenderness GENITOURINARY: No discharge, no lesions. MUSCULOSKELETAL: Spine appears normal, range of motion is not limited, no muscle or joint tenderness. NEUROLOGICAL: Alert and oriented, no focal deficits, no motor or sensory deficits. SKIN: Skin normal color for race, warm, dry and in Normal [facility] Basic Metabolic Panelon 09-28 Anion gap [Moles/Vol] 14 mmol/L [place] Calcium [Mass/Vol] 8.8 mg/dL 8.5 - 9.9 mg/dL [place] Chloride [Moles/Vol] 97 mmol/L [place] CO2 [Moles/Vol] 23 mmol/L [place] Creatinine [Mass/Vol] 0.5 mg/dL 0.5 - 0.9 mg/dL [place] GFR >60.0 >60 [place] Comment on above: >60 mL/min/1.73m2 EG FR, calc. for ages 18 and older using the MDRD formula (not corrected for weight), is valid for stable renal function. GFR Non- >60.0 >60 [place] Comment on above: >60 mL/min/1.73m2 EG FR, calc. for ages 18 and older using the MDRD formula (not corrected for weight), is valid for stable renal function. Glucose [Mass/Vol] 102 mg/dL High 70 - 99 mg/dL [place] Interpretation and review of laboratory results Abnormal [place] Potassium [Moles/Vol] 3.9 mmol/L [place] Sodium [Moles/Vol] 134 mmol/L [place] Urea nitrogen [Mass/Vol] 15 mg/dL 6 - 20 mg/dL [place] CBC Auto Differentialon 09-28 Basophils (Bld) [#/Vol] 0.1 10*3/uL 0 - 0.2 K/uL [place] Basophils/100 WBC (Bld) 1.4 % [place] Eosinophils (Bld) [#/Vol] 0.3 10*3/uL 0 - 0.7 K/uL [place] Eosinophils/100 WBC (Bld) 4.1 % [place] Erythrocyte distribution width (RBC) [Ratio] 13.8 % 11.5 - 14.5 % [place] Hematocrit (Bld) [Volume fraction] 40.1 % 37 - 47 % [place] Hemoglobin (Bld) [Mass/Vol] 13.1 g/dL 12 - 16 g/dL [place] Interpretation and review of laboratory results Abnormal [place] Lymphocytes (Bld) [#/Vol] 2.6 10*3/uL 1 - 4.8 K/uL [place] Lymphocytes/100 WBC (Bld) 35.3 % [place] MCH (RBC) [Entitic mass] 26.4 pg Low 27 - 31.3 pg [place] MCHC (RBC) [Mass/Vol] 32.8 % Low 33 - 37 % [place] MCV (RBC) [Entitic vol] 80.4 fL Low 82 - 100 fL [place] Monocytes (Bld) [#/Vol] 0.5 10*3/uL 0.2 - 0.8 K/uL [place] Monocytes/100 WBC (Bld) 6.3 % [place] Neutrophils Absolute 3.9 K/uL 1.4 - 6 .5 K/uL [place] Neutrophils/100 WBC (Bld) 52.9 % [place] Platelets (Bld) [#/Vol] 290 10*3/uL 130 - 400 K/uL [place] RBC (Bld) [#/Vol] 4.98 10*6/uL [place] WBC (Bld) [#/Vol] 7.4 10*3/uL 4.8 - 10.8 K/uL [place] Microscopic Urinalysison Bacteria, UA RARE Abnormal Negative /HPF [place] Epithelial Cells, UA 10-20 [place] Hyaline Casts, UA 10-20 [facility] [place] Interpretation and review of laboratory results Abnormal [place] Mucus, UA Present None Seen /LPF [place] RBC (U) [#/Vol] /uL [place] WBC, UA 6-10 Abnormal [place] Urine Reflex to Cultureon Bilirubin Urine Negative Negative [place] Blood, Urine LARGE Abnormal Negative [place] Clarity, UA CLOUDY Abnormal Clear [place] Color, UA Yellow Straw/Clay ow [place] Glucose, Ur Negative Negative mg/dL [place] Interpretation and review of laboratory results Abnormal [place] Ketones Ql (U) Negative Negative mg/dL [place] Leukocyte esterase Test strip Ql (U) Negative Negative [place] Nitrite, Urine Negative Negative [place] pH, UA 5.0 [place] Protein (U) [Mass/Vol] TRACE Abnormal Negat isabella mg/dL [place], [place] Specific [place], UA 1.040 [place], [place] Urine Reflex to Culture YES [place] Urobilinogen, Urine 1.0 <2.0 E.U./dL [place] Microscopic Urinalysison Bacteria, UA FEW Abnormal Negative /HPF [place] Epi Cells 6-10 [place] Hyaline Casts, UA 0-1 [place] Interpretation and review of laboratory results Abnormal [place] RBC (U) [#/Vol] /uL [place] WBC, UA 20-50 Abnormal [place] Urine Reflex to Cultureon Bilirubin Urine Negative Negative [place] Blood, Urine LARGE Abnormal Negative [place] Clarity, UA Clear Clear [place] Color, UA Yellow Straw/Clay [place] Glucose, Ur >=1000 Abnormal Negative mg/dL [place] Interpretation and review of laboratory results Abnormal [place] Ketones Ql (U) Negative Negative mg/dL [place] Leukocyte esterase Test strip Ql (U) TRACE Abnormal Negative [place] Nitrite, Urine Negative Negative [place] pH, UA 5.5 [place] Protein (U) [Mass/Vol] Negative Negat isabella mg/dL [place] Specific [place], UA 1.030 [place] Urine Reflex to Culture YES [place] Urobilinogen, Urine 0.2 <2.0 E.U./dL [place] Coding Summaryon 07-15-2019 Coding Summary CODING DATE: [facility] STATUS: PAYOR: Commercial Insurance ADMIT DX: REASON FOR VISIT DX: R10.9 Unspecified abdominal pain FINAL DX: PRINCIPAL: R10.9 Unspecified abdominal pain SECONDARY: R31.29 Other microscopic hematuria Z87.442 Personal history of urinary calculi E11.65 Type 2 diabetes mellitus with hyperglycemia R79.89 Other specified abnormal findings of blood chemistry R00.0 Tachycardia, unspecified R11.2 Nausea with vomiting, unspecified 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 However, the narrative phrase printed from the coding software may appear abbreviated, or result in slightly different terminology. Coded By: Dragan Madsen' Date Saved: 07/15/2019 11:04 am [facility] Coding Summary CODING DATE: [facility] STATUS: Against Medical Advice PAYOR: Commercial Insurance APC DESCRIPTION 5521 Level 1 Imaging without Contrast ADMIT DX: REASON FOR VISIT DX: R10.9 Unspecified abdominal pain FINAL DX: PRINCIPAL: R10.9 Unspecified abdominal pain SECONDARY: R31.29 Other microscopic hematuria Z87.442 Personal history of urinary calculi E11.65 Type 2 diabetes mellitus with hyperglycemia R79.89 Other specified abnormal findings of blood chemistry R00.0 Tachycardia, unspecified R11.2 Nausea with vomiting, unspecified 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 However, the narrative phrase printed from the coding software may appear abbreviated, or result in slightly different terminology. Coded By: Karen Madsen Date Saved: 07/15/2019 11:01 am [facility] Consent Formson 07-15-2019 Consent Forms [id number] [facility] ED Clinical Summaryon 2019 ED Clinical Summary [facility] - Emergency Department [address] [place] [address] ED Clinical Summary PERSON INFORMATION Name: GISEL CARLTON Age: 44 Years Sex: FEMALE : 1975 MRN: Acct#: Visit Reason: Flank pain; FLANK PAIN, VOMITING Arrival: 07/14/2019 20:31:12 Discharge: 07/14/2019 23:03:00 LOS: 000 02:32 Check In: 07/14/2019 20:31:12 Checkout:07/14/2019 23:03:00 Address: [address] [place] [id number] PCP: Provider, None PROVIDER INFORMATION Provider Role Assigned Unassigned Casper Tate ED PA 07/14/2019 20:33:29 Tomasz RAUSCH, [place] ED Nurse 07/14/2019 20:35:31 VITALS INFORMATION Vital Sign Triage Latest Temperature Tympanic Temperature Temporal Artery Pulse Rate 130 bpm 117 bpm O2 Sat 98 % 98 % Respiratory Rate 16 br/min 16 br/min Blood Pressure /77 mmHg /77 mmHg MEDICAL INFORMATION Medications Given: Medication Dose Route HYDROmorphone 1 mg IM promethazine 25 mg IM insulin aspart 10 unit(s) SubQ insulin aspart 10 unit(s) SubQ Allergy Information: fentaNYL; Demerol; Nubain; Zithromax; Toradol; morphine; penicillin PHYSICIAN DOCUMENTATION Patient: GISEL CARLTON Age: 44 years Sex: FEMALE : 1975 Associated Diagnoses: Flank pain; Hematuria, microscopic; History of kidney stones; Hyperglycemia; Lactic acid blood increased; Nausea; Tachycardia Author: Casper Tate Basic Information Time seen: Date & time 07/14/2019 20:35:00. History source: Patient. Arrival mode: Private vehicle. History limitation: None. History of Present Illness Patient is a 44-year-old female with a previous history of kidney stone since 2006, recent kidney stone on the left side about 2 weeks ago, diabetes, GERD, hypercholesterolemia, who presents to the emergency department with complaints of right-sided flank pain that started earlier today consistent with kidney stone type pain the patient had in the past, patient seen in room 7. Patient has a long history of kidney stones, and reports that she had one on the left side 2 weeks ago, was seen and had CT scan, and was treated with pain medication medication for nausea and antibiotics. She states she was doing good up until this afternoon when she started to have pain on the opposite side, right side and now having pain similar to previous kidney stone pain. She has been nauseous and had 2 episodes of vomiting this afternoon, she is having right flank pain. Patient denies any shortness of breath, chest pain, hematuria, but admits to dysuria this afternoon. Review of Systems Constitutional symptoms: No fever, no chills. Skin symptoms: No rash, no abrasions. Eye symptoms: No discharge, no diplopia, no blurred vision. ENMT symptoms: Negative except as documented in HPI. Respiratory symptoms: No shortness of breath, Cardiovascular symptoms: No chest pain, Gastrointestinal symptoms: No abdominal pain, no nausea, no vomiting. Genitourinary symptoms: Negative except as documented in HPI. Musculoskeletal symptoms: Negative except as documented in HPI. Health Status Allergies: No allergies have been recorded.. Past Medical/ Family/ Social History Medical history: No active or resolved past medical history items have been selected or recorded.. Surgical history: No active procedure history items have been selected or recorded.. Family history: No family history items have been selected or recorded.. Social history: Social & Psychosocial Habits No Data Available . Problem list: No qualifying data available . Physical Examination General: Alert, no acute distress. Vital Signs Skin: Warm, dry. Head: Normocephalic, atraumatic. Neck: Supple, trachea midline. Eye: Extraocular movements are intact, normal conjunctiva. Ears, nose, mouth and throat: Oral mucosa moist. Cardiovascular: +S1, S2 Regular. Respiratory: Lungs are clear to auscultation, respirations are non-labored, breath sounds are equal. Gastrointestinal: Patient's abdomen is obese, there are positive bowel sounds throughout, there is some tenderness in the right mid flank, otherwise unremarkable abdomen. There is no guarding or rebound. Back: CVA tenderness on the right, negative on the left. Neurological: Alert and oriented to person, place, time, and situation, No focal neurological deficit observed. Psychiatric: Cooperative. Medical Decision Making Differential Diagnosis: Abdominal pain, Appendicitis, renal stone, ureteral stone, urinary tract infection, pyelonephritis, Malingering/drug-seeking. Orders Launch Orders Laboratory: Urinalysis with Culture, if indicated Standard (Order): Urine, Routine collect, 07/14/2019 21:04 EST, Nurse collect Lactic Acid (Order): Blood, Stat collect, 07/14/2019 21:00 EST, Lab Collect Lipase Level (Order): Blood, Routine collect, 07/14/2019 21:00 EST, Lab Collect CMP Standard (Order): Blood, Stat collect, 07/14/2019 21:00 EST, Lab Collect CBC w/ Auto Diff (Order): Blood, Stat collect, 07/14/2019 21:00 EST, Lab Collect Pharmacy: Phenergan (Order): 25 mg, IM, Once Dilaudid (Order): 1 mg, IM, Once Radiology: XR Abdomen Single View (KUB) (Order): 07/14/2019 21:05 EST Stat, Kidney stone right?, Allow Modification Per Radiologist, Transport Mode: Wheelchair, Patient with a history of multiple kidney stones, multiple CT scans, recent history of left-sided kidney stone 2 weeks ago, now on right side, Launch Orders Pharmacy: [facility] (Order): 10 unit(s), SubQ, Once, Launch Orders Pharmacy: [facility] (Order): 10 unit(s), SubQ, Once. Results review: Lab results : Lab Flowsheet 07/14/2019 21:06 EST Sodium Level 135.0 mmol/L LOW Potassium Level 4.0 mmol/L Chloride Level 97 mmol/L LOW CO2 26 mmol/L Anion Gap 16.0 mmol/L Glucose Level 419.0 mg/dL HI BUN 17 mg/dL Creatinine Level 0.89 mg/dL BUN/Creat Ratio 19.0 HI eGFR AA >60 mL/min/1.73m2 NA eGFR Non AA >60 mL/min/1.73m2 NA Calcium Level 9.6 mg/dL Bili Total 0.6 mg/dL Alk Phos 73 IU/L AST/SGOT 17 IU/L ALT/SGPT 17.0 IU/L Protein Total 7.7 gm/dL Albumin Level 4.2 gm/dL Globulin 3.5 gm/dL A/G Ratio 1.2 LOW Lipase Level 39.0 IU/L Osmolality 289 mOsm/L NA Lactic Acid 20.7 mg/dL HI WBC 8.7 x103/mcL RBC 4.81 x106/mcL Hgb 13.1 gm/dL Hct 38.1 % MCV 79 fL LOW MCH 27 pg MCHC 34 gm/dL RDW 14.9 % Platelet 255 x103/mcL MPV 9.5 fL Auto Neut % 65 % Auto Lymph % 25 % Auto [place] % 7 % Auto Eos % 2.3 % Auto Baso % 0.5 % Neut Abs# 5.6 x103/mcL Lymph Abs# 2.2 x103/mcL [place] Abs# 0.6 x103/mcL Eos Abs# 0.2 x103/mcL Baso Abs# 0.0 x103/mcL UA Color Yellow UA Clarity SL CLOUDY UA Glucose 1000 mg/dL UA Ketones NEGATIVE UA Spec Grav 1.020 UA Blood LARGE UA pH 6.0 UA Protein NEGATIVE mg/dL UA Urobilinogen 0.2 mg/dL UA Nitrite NEGATIVE UA Leuk Est NEGATIVE UA Bilirubin NEGATIVE Urine Source Clean Catch Micro? Indicated Culture? Not Indicated UA WBC 0-2 UA RBC >100 UA Squam Epi Moderate UA Bacteria Trace Tube Collected Yes Tube Collected Yes . Reexamination/ Reevaluation Patient is a 44-year-old female who presents to the emergency department for evaluation of right flank pain and history of kidney stones. From history, patient has had kidney stone since 2006, and asked reports that she had a left-sided kidney stone 2 weeks ago and was seen at a local hospital. From review, she was started on Bactrim, medication for pain, Zofran, and Flomax. She reports that she is currently not on any antibiotics, does not have any pain medication left, and that Zofran does not help with her nausea. She reports that she started to have symptoms this afternoon with nausea and vomiting x2, and right-sided flank pain. She gave me her history, and initially stated she did not want to have any CT scans that she has had too many already. I discussed with that we can obtain a laboratory work-up, and try to identify a renal calculi on a single KUB film. If she has urinary tract infection we can treat that with antibiotics, provide her medication for nausea, and will evaluate her complaint of right flank pain at that time. She was in agreement for laboratory work-up. We will medicate her with IM injection of Phenergan, and Dilaudid, she cannot take anything orally at this time. Patient's urinalysis comes back negative for indices consistent with infection, there is a large amount of blood present. Patient CBC returns unremarkable with no acute signs consistent with infection. Patient was initially tachycardic when she came in the heart rate about 130, but after providing her with injection of Dilaudid, and Phenergan, her heart rate was rechecked and was 114 9:42 PM. I discussed her that she may have some mild dehydration from vomiting she had a couple episodes of vomiting, and I offered her some IV fluid. Patient declined IV fluid. Patient's CMP returns with a glucose of 419, lactic acid is elevated at 20.7, are normal high is 19.8, I discussed this with the patient and she does not want IV fluid. She did agree to having 10 units of regular insulin, so we will give this to her. We discussed about a sliding scale, but she does not have one so can provide her with a copy to review. Patient's blood sugar was rechecked at 10:38 PM, and was down to 405, will provide her with another 10 units of insulin. Discussed with supervising physician, she will evaluate and discharge patient after rechecking blood sugar. All treatment plan was discussed with patient, and follow-up instructions she indicated verbal understanding agreement. Patient was provided the insulin, but refused to stay and wait for results, we discussed the risks of leaving the hospital AGAINST MEDICAL ADVICE, including DKA, partial or permanent disability, including complications which could lead to . Patient indicated that she understood this and wanted to be discharged AGAINST MEDICAL ADVICE the appropriate paperwork was filled out and signed, and she was discharged. Impression and Plan Diagnosis Flank pain (DVW37-RC R10.9, Discharge, Medical) Hematuria, microscopic (GFY97-FJ R31.29, Discharge, Medical) History of kidney stones (YQH71-NB Z87.442, Discharge, Medical) Hyperglycemia (LBC26-TA R73.9, Discharge, Medical) Lactic acid blood increased (JQR85-MW R79.89, Discharge, Medical) Nausea (KAQ39-EG R11.0, Discharge, Medical) Tachycardia (WQT77-ZD R00.0, Discharge, Medical) Plan Condition: Improved, Stable. Disposition: Discharged: Time 07/14/2019 22:58:00, to home. Patient was given the following educational materials: Hematuria, Adult, Hyperglycemia, Kidney Stones, Kidney Stones, Hyperglycemia, Hematuria, Adult, Kidney Stones, Hyperglycemia, Hematuria, Adult, Kidney Stones, Hyperglycemia, Hematuria, Adult. Follow up with: Aditya Sethi Within 3 to 5 days; Follow-up with Skye Jones tomorrow for reevaluation In 1 day 07/15/2019 Diagnosis is right flank pain, hematuria, history of kidney stones, nausea, tachycardia, elevated lactic acid, and hyperglycemia. From history, you have had kidney stones in the past, report that you feel like you are having a stone now, on the right side, as you had one on the left 2 weeks ago. We discussed about a laboratory work-up including a CT scan but you declined at this time. We obtained an x-ray of abdomen. But shows no evidence of obvious kidney stone. Laboratory work-up showed no signs of infection nor did your urinalysis. We did not start you on antibiotics. We provided you with medication in the form of Dilaudid, and Phenergan to help with nausea and vomiting. We also provide you with 10 units of regular insulin since your blood sugar was elevated at 419. We discussed about IV fluids to help treat your elevated lactic acid, and your elevated heart rate but you declined. As discussed make sure you keep hydrated, check your blood sugar when you get home and treat accordingly. Follow-up with your primary care provider tomorrow and discussed with her your elevated lactic acid level, and being here in the emergency department for kidney stone. You may follow-up with your own urologist in the next 3 to 5 days, or you may follow-up with the one listed on this discharge paperwork. Return to the emergency department for worsening symptoms or concerns, spiking fevers, intractable nausea or vomiting, acute shortness of breath or chest pain, or any questions. I included a sliding scale, for use with regular type insulin. Diet: ADA diet to start Insulin sliding scale Humulin R Call primary care physician if blood sugars less than 60 or greater than 400 For blood sugar between 61 and 150 no intervention For blood sugar 151-200, give 2 units insulin subcutaneous. For blood sugar to 1-250, give 4 units insulin subcutaneous. For blood sugar 251-300, give 6 units insulin subcutaneous. For blood sugar 301-350, give 8 units insulin subcutaneous For blood sugar 351-400 or greater give 10 units insulin subcutaneous. ; None Provider Within 3 to 5 days. Counseled: Patient, Regarding diagnosis, Regarding diagnostic results, Regarding treatment plan, Regarding prescription, Patient indicated understanding of instructions. DISCHARGE INFORMATION: Discharge Disposition: Against Medical Advice Discharge Location: PATIENT EDUCATION INFORMATION Instructions: Kidney Stones; Hyperglycemia; Hematuria, Adult Follow-Up: With: Address: When: Follow-up with Skye Jones tomorrow for reevaluation In 1 day 07/15/2019 Comments: Diagnosis is right flank pain, hematuria, history of kidney stones, nausea, tachycardia, elevated lactic acid, and hyperglycemia. From history, you have had kidney stones in the past, report that you feel like you are having a stone now, on the right side, as you had one on the left 2 weeks ago. We discussed about a laboratory work-up including a CT scan but you declined at this time. We obtained an x-ray of abdomen. But shows no evidence of obvious kidney stone. Laboratory work-up showed no signs of infection nor did your urinalysis. We did not start you on antibiotics. We provided you with medication in the form of Dilaudid, and Phenergan to help with nausea and vomiting. We also provide you with 10 units of regular insulin since your blood sugar was elevated at 419. We discussed about IV fluids to help treat your elevated lactic acid, and your elevated heart rate but you declined. As discussed make sure you keep hydrated, check your blood sugar when you get home and treat accordingly. Follow-up with your primary care provider tomorrow and discussed with her your elevated lactic acid level, and being here in the emergency department for kidney stone. You may follow-up with your own urologist in the next 3 to 5 days, or you may follow-up with the one listed on this discharge paperwork. Return to the emergency department for worsening symptoms or concerns, spiking fevers, intractable nausea or vomiting, acute shortness of breath or chest pain, or any questions. I included a sliding scale, for use with regular type insulin. Diet: ADA diet to start Insulin sliding scale Humulin R Call primary care physician if blood sugars less than 60 or greater than 400 For blood sugar between 61 and 150 no intervention For blood sugar 151-200, give 2 units insulin subcutaneous. For blood sugar to 1-250, give 4 units insulin subcutaneous. For blood sugar 251-300, give 6 units insulin subcutaneous. For blood sugar 301-350, give 8 units insulin subcutaneous For blood sugar 351-400 or greater give 10 units insulin subcutaneous. With: Address: When: Aditya Sethi [address] [place] [address], [address] [place] [id number] [facility] (1) Within 3 to 5 days With: Address: When: None Provider Within 3 to 5 days DIAGNOSIS: Flank pain; Hematuria, microscopic; History of kidney stones; Hyperglycemia; Lactic acid blood increased; Nausea; Tachycardia Patient Understands: Yes - Patient/family/caregiver verbalizes understanding of instructions given Comment: [facility] ED Patient Education Noteon 07-15-2019 ED Patient Education Note Education Materials Nephrology Hematuria, Adult Hematuria is blood in the urine. Blood may be visible in the urine, or it may be identified with a test. This condition can be caused by infections of the bladder, urethra, kidney, or prostate. Other possible causes include: ? Kidney stones. ? Cancer of the urinary tract. ? Too much calcium in the urine. ? Conditions that are passed from parent to child (inherited conditions). ? Exercise that requires a lot of energy. Infections can usually be treated with medicine, and a kidney stone usually will pass through your urine. If neither of these is the cause of your hematuria, more tests may be needed to identify the cause of your symptoms. It is very important to tell your health care provider about any blood in your urine, even if it is painless or the blood stops without treatment. Blood in the urine, when it happens and then stops and then happens again, can be a symptom of a very serious condition, including cancer. There is no pain in the initial stages of many urinary cancers. Follow these instructions at home: Medicines ? Take uzqz-zke-rbmmgrt and prescription medicines only as told by your health care provider. ? If you were prescribed an antibiotic medicine, take it as told by your health care provider. Do not stop taking the antibiotic even if you start to feel better. Eating and drinking ? Drink enough fluid to keep your urine clear or pale yellow. It is recommended that you drink 3?4 quarts (2.8?3.8 L) a day. If you have been diagnosed with an infection, it is recommended that you drink cranberry juice in addition to large amounts of water. ? Avoid caffeine, tea, and carbonated beverages. These tend to irritate the bladder. ? Avoid alcohol because it may irritate the prostate (men). General instructions ? If you have been diagnosed with a kidney stone, follow your health care provider's instructions about straining your urine to catch the stone. ? Empty your bladder often. Avoid holding urine for long periods of time. ? If you are female: ? After a bowel movement, wipe from front to back and use each piece of toilet paper only once. ? Empty your bladder before and after sex. ? Pay attention to any changes in your symptoms. Tell your health care provider about any changes or any new symptoms. ? It is your responsibility to get your test results. Ask your health care provider, or the department performing the test, when your results will be ready. ? Keep all follow-up visits as told by your health care provider. This is important. Contact a health care provider if: ? You develop back pain. ? You have a fever. ? You have nausea or vomiting. ? Your symptoms do not improve after 3 days. ? Your symptoms get worse. Get help right away if: ? You develop severe vomiting and are unable take medicine without vomiting. ? You develop severe pain in your back or abdomen even though you are taking medicine. ? You pass a large amount of blood in your urine. ? You pass blood clots in your urine. ? You feel very weak or like you might faint. ? You faint. Summary ? Hematuria is blood in the urine. It has many possible causes. ? It is very important that you tell your health care provider about any blood in your urine, even if it is painless or the blood stops without treatment. ? Take qzxf-xjq-nxdtlzp and prescription medicines only as told by your health care provider. ? Drink enough fluid to keep your urine clear or pale yellow. This information is not intended to replace advice given to you by your health care provider. Make sure you discuss any questions you have with your health care provider. Document Released: 06/15/2006 Document Revised: 07/18/2017 Document Reviewed: 07/18/2017 [employer] Patient Education ? 2019 [employer] Obstetrics and Gynecology Hyperglycemia Hyperglycemia occurs when the level of sugar (glucose) in the blood is too high. Glucose is a type of sugar that provides the body's main source of energy. Certain hormones (insulin and glucagon) control the level of glucose in the blood. Insulin lowers blood glucose, and glucagon increases blood glucose. Hyperglycemia can result from having too little insulin in the bloodstream, or from the body not responding normally to insulin. Hyperglycemia occurs most often in people who have diabetes (diabetes mellitus), but it can happen in people who do not have diabetes. It can develop quickly, and it can be life-threatening if it causes you to become severely dehydrated (diabetic ketoacidosis or hyperglycemic hyperosmolar state). Severe hyperglycemia is a medical emergency. What are the causes? If you have diabetes, hyperglycemia may be caused by: ? Diabetes medicine. ? Medicines that increase blood glucose or affect your diabetes control. ? Not eating enough, or not eating often enough. ? Changes in physical activity level. ? Being sick or having an infection. If you have prediabetes or undiagnosed diabetes: ? Hyperglycemia may be caused by those conditions. If you do not have diabetes, hyperglycemia may be caused by: ? Certain medicines, including steroid medicines, beta-blockers, epinephrine, and thiazide diuretics. ? Stress. ? Serious illness. ? Surgery. ? Diseases of the pancreas. ? Infection. What increases the risk? Hyperglycemia is more likely to develop in people who have risk factors for diabetes, such as: ? Having a family member with diabetes. ? Having a gene for type 1 diabetes that is passed from parent to child (inherited). ? Living in an area with cold weather conditions. ? Exposure to certain viruses. ? Certain conditions in which the body's disease-fighting (immune) system attacks itself (autoimmune disorders). ? Being overweight or obese. ? Having an inactive (sedentary) lifestyle. ? Having been diagnosed with insulin resistance. ? Having a history of prediabetes, gestational diabetes, or polycystic ovarian syndrome (PCOS). ? Being of Ethiopian-Welsh, -Ethiopian, /, or / descent. What are the signs or symptoms? Hyperglycemia may not cause any symptoms. If you do have symptoms, they may include early warning signs, such as: ? Increased thirst. ? Hunger. ? Feeling very tired. ? Needing to urinate more often than usual. ? Blurry vision. Other symptoms may develop if hyperglycemia gets worse, such as: ? Dry mouth. ? Loss of appetite. ? Fruity-smelling breath. ? Weakness. ? Unexpected or rapid weight gain or weight loss. ? Tingling or numbness in the hands or feet. ? Headache. ? Skin that does not quickly return to normal after being lightly pinched and released (poor skin turgor). ? Abdominal pain. ? Cuts or bruises that are slow to heal. How is this diagnosed? Hyperglycemia is diagnosed with a blood test to measure your blood glucose level. This blood test is usually done while you are having symptoms. Your health care provider may also do a physical exam and review your medical history. You may have more tests to determine the cause of your hyperglycemia, such as: ? A fasting blood glucose (FBG) test. You will not be allowed to eat (you will fast) for at least 8 hours before a blood sample is taken. ? An A1c (hemoglobin A1c) blood test. This provides information about blood glucose control over the previous 2?3 months. ? An oral glucose tolerance test (OGTT). This measures your blood glucose at two times: ? After fasting. This is your baseline blood glucose level. ? Two hours after drinking a beverage that contains glucose. How is this treated? Treatment depends on the cause of your hyperglycemia. Treatment may include: ? Taking medicine to regulate your blood glucose levels. If you take insulin or other diabetes medicines, your medicine or dosage may be adjusted. ? Lifestyle changes, such as exercising more, eating healthier foods, or losing weight. ? Treating an illness or infection, if this caused your hyperglycemia. ? Checking your blood glucose more often. ? Stopping or reducing steroid medicines, if these caused your hyperglycemia. If your hyperglycemia becomes severe and it results in hyperglycemic hyperosmolar state, you must be hospitalized and given IV fluids. Follow these instructions at home: General instructions ? Take nyvi-yln-otewcds and prescription medicines only as told by your health care provider. ? Do not use any products that contain nicotine or tobacco, such as cigarettes and e-cigarettes. If you need help quitting, ask your health care provider. ? Limit alcohol intake to no more than 1 drink per day for non women and 2 drinks per day for men. One drink equals 12 oz of beer, 5 oz of wine, or 1? oz of hard liquor. ? Learn to manage stress. If you need help with this, ask your health care provider. ? Keep all follow-up visits as told by your health care provider. This is important. Eating and drinking ? Maintain a healthy weight. ? Exercise regularly, as directed by your health care provider. ? Stay hydrated, especially when you exercise, get sick, or spend time in hot temperatures. ? Eat healthy foods, such as: ? Lean proteins. ? Complex carbohydrates. ? Fresh fruits and vegetables. ? Low-fat dairy products. ? Healthy fats. ? Drink enough fluid to keep your urine clear or pale yellow. If you have diabetes: ? Make sure you know the symptoms of hyperglycemia. ? Follow your diabetes management plan, as told by your health care provider. Make sure you: ? Take your insulin and medicines as directed. ? Follow your exercise plan. ? Follow your meal plan. Eat on time, and do not skip meals. ? Check your blood glucose as often as directed. Make sure to check your blood glucose before and after exercise. If you exercise longer or in a different way than usual, check your blood glucose more often. ? Follow your sick day plan whenever you cannot eat or drink normally. Make this plan in advance with your health care provider. ? Share your diabetes management plan with people in your workplace, school, and household. ? Check your urine for ketones when you are ill and as told by your health care provider. ? Carry a medical alert card or wear medical alert jewelry. Contact a health care provider if: ? Your blood glucose is at or above 240 mg/dL (13.3 mmol/L) for 2 days in a row. ? You have problems keeping your blood glucose in your target range. ? You have frequent episodes of hyperglycemia. Get help right away if: ? You have difficulty breathing. ? You have a change in how you think, feel, or act (mental status). ? You have nausea or vomiting that does not go away. These symptoms may represent a serious problem that is an emergency. Do not wait to see if the symptoms will go away. Get medical help right away. Call your local emergency services (911 in the [place] Do not drive yourself to the hospital. Summary ? Hyperglycemia occurs when the level of sugar (glucose) in the blood is too high. ? Hyperglycemia is diagnosed with a blood test to measure your blood glucose level. This blood test is usually done while you are having symptoms. Your health care provider may also do a physical exam and review your medical history. ? If you have diabetes, follow your diabetes management plan as told by your health care provider. ? Contact your health care provider if you have problems keeping your blood glucose in your target range. This information is not intended to replace advice given to you by your health care provider. Make sure you discuss any questions you have with your health care provider. Document Released: 12/09/2001 Document Revised: 03/02/2017 Document Reviewed: 03/02/2017 [employer] Interactive Patient Education ? 2019 [email or web address]. Urology Kidney Stones Kidney stones (urolithiasis) are solid, rock-like deposits that form inside of the organs that make urine (kidneys). A kidney stone may form in a kidney and move into the bladder, where it can cause intense pain and block the flow of urine. Kidney stones are created when high levels of certain minerals are found in the urine. They are usually passed through urination, but in some cases, medical treatment may be needed to remove them. What are the causes? Kidney stones may be caused by: ? A condition in which certain glands produce too much parathyroid hormone (primary hyperparathyroidism), which causes too much calcium buildup in the blood. ? Buildup of uric acid crystals in the bladder (hyperuricosuria). Uric acid is a chemical that the body produces when you eat certain foods. It usually exits the body in the urine. ? Narrowing (stricture) of one or both of the tubes that drain urine from the kidneys to the bladder (ureters). ? A kidney blockage that is present at (congenital obstruction). ? Past surgery on the kidney or the ureters, such as gastric bypass surgery. What increases the risk? The following factors make you more likely to develop kidney stones: ? Having had a kidney stone in the past. ? Having a family history of kidney stones. ? Not drinking enough water. ? Eating a diet that is high in protein, salt (sodium), or sugar. ? Being overweight or obese. What are the signs or symptoms? Symptoms of a kidney stone may include: ? Nausea. ? Vomiting. ? Blood in the urine (hematuria). ? Pain in the side of the abdomen, right below the ribs (flank pain). Pain usually spreads (radiates) to the groin. ? Needing to urinate frequently or urgently. How is this diagnosed? This condition may be diagnosed based on: ? Your medical history. ? A physical exam. ? Blood tests. ? Urine tests. ? CT scan. ? Abdominal X-ray. ? A procedure to examine the inside of the bladder (cystoscopy). How is this treated? Treatment for kidney stones depends on the size, location, and makeup of the stones. Treatment may involve: ? Analyzing your urine before and after you pass the stone through urination. ? Being monitored at the hospital until you pass the stone through urination. ? Increasing your fluid intake and decreasing the amount of calcium and protein in your diet. ? A procedure to break up kidney stones in the bladder using: ? A focused beam of light (laser therapy). ? Shock waves (extracorporeal shock wave lithotripsy). ? Surgery to remove kidney stones. This may be needed if you have severe pain or have stones that block your urinary tract. Follow these instructions at home: Eating and drinking ? Drink enough fluid to keep your urine clear or pale yellow. This will help you to pass the kidney stone. ? If directed, change your diet. This may include: ? Limiting how much sodium you eat. ? Eating more fruits and vegetables. ? Limiting how much meat, poultry, fish, and eggs you eat. ? Follow instructions from your health care provider about eating or drinking restrictions. General instructions ? Collect urine samples as told by your health care provider. You may need to collect a urine sample: ? 24 hours after you pass the stone. ? 8??12 weeks after passing the kidney stone, and every 6?12 months after that. ? Strain your urine every time you urinate, for as long as directed. Use the strainer that your health care provider recommends. ? Do not throw out the kidney stone after passing it. Keep the stone so it can be tested by your health care provider. Testing the makeup of your kidney stone may help prevent you from getting kidney stones in the future. ? Take xssd-jlm-nuxmits and prescription medicines only as told by your health care provider. ? Keep all follow-up visits as told by your health care provider. This is important. You may need follow-up X-rays or ultrasounds to make sure that your stone has passed. How is this prevented? To prevent another kidney stone: ? Drink enough fluid to keep your urine clear or pale yellow. This is the best way to prevent kidney stones. ? Eat a healthy diet and follow recommendations from your health care provider about foods to avoid. You may be instructed to eat a low-protein diet. Recommendations vary depending on the type of kidney stone that you have. ? Maintain a healthy weight. Contact a health care provider if: ? You have pain that gets worse or does not get better with medicine. Get help right away if: ? You have a fever or chills. ? You develop severe pain. ? You develop new abdominal pain. ? You faint. ? You are unable to urinate. This information is not intended to replace advice given to you by your health care provider. Make sure you discuss any questions you have with your health care provider. Document Released: 06/15/2006 Document Revised: 11/26/2017 Document Reviewed: 11/28/2016 [employer] Interactive Patient Education ? 2018 [email or web address]. Normal [facility] ED Patient Summaryon 020 ED Patient Summary [facility] - Emergency Department [address] [place] [address] PATIENT DISCHARGE INSTRUCTIONS Patient Information Name: GISEL CARLTON Age: 44 Years Date of : 1975 Reason For Visit: Flank pain; FLANK PAIN, VOMITING Arrival Time: 07/14/2019 20:31:12 Primary Care Physician: Provider, None Attending Physician: Grace Servin D.O. Comment: Visit Diagnosis: Diagnoses This Visit Flank pain ([id number]) Flank pain (R10.9) Hematuria, microscopic (R31.29) History of kidney stones (Z87.442) Hyperglycemia (R73.9) Lactic acid blood increased (R79.89) Nausea (R11.0) Tachycardia (R00.0) Prescription Information: If you have been given a prescription for narcotics, seek immediate medical attention if you have any difficulty breathing or any sudden status changes such as confusion and sleepiness. If you or anyone you know is experiencing suicidal thoughts, mental health, alcohol and/or drug addiction problems; contact the [facility] 19/01 Crisis Hotline -Text 4LCHB fn 737072. If you received any narcotics, sedation, or any other medication that causes drowsiness for the next 24 hours, unless otherwise directed: ? Do not drive a car. ? Do not operate machinery such as power tools, lawn mowers, drills, sewing machines, or stoves ? Avoid alcoholic beverages and drugs for allergies, nerves, or sleep ? Do not make important personal or business decisions or sign any legal documents With: Address: When: Follow-up with Skye Jones tomorrow for reevaluation In 1 day 07/15/2019 Comments: Diagnosis is right flank pain, hematuria, history of kidney stones, nausea, tachycardia, elevated lactic acid, and hyperglycemia. From history, you have had kidney stones in the past, report that you feel like you are having a stone now, on the right side, as you had one on the left 2 weeks ago. We discussed about a laboratory work-up including a CT scan but you declined at this time. We obtained an x-ray of abdomen. But shows no evidence of obvious kidney stone. Laboratory work-up showed no signs of infection nor did your urinalysis. We did not start you on antibiotics. We provided you with medication in the form of Dilaudid, and Phenergan to help with nausea and vomiting. We also provide you with 10 units of regular insulin since your blood sugar was elevated at 419. We discussed about IV fluids to help treat your elevated lactic acid, and your elevated heart rate but you declined. As discussed make sure you keep hydrated, check your blood sugar when you get home and treat accordingly. Follow-up with your primary care provider tomorrow and discussed with her your elevated lactic acid level, and being here in the emergency department for kidney stone. You may follow-up with your own urologist in the next 3 to 5 days, or you may follow-up with the one listed on this discharge paperwork. Return to the emergency department for worsening symptoms or concerns, spiking fevers, intractable nausea or vomiting, acute shortness of breath or chest pain, or any questions. I included a sliding scale, for use with regular type insulin. Diet: ADA diet to start Insulin sliding scale Humulin R Call primary care physician if blood sugars less than 60 or greater than 400 For blood sugar between 61 and 150 no intervention For blood sugar 151-200, give 2 units insulin subcutaneous. For blood sugar to 1-250, give 4 units insulin subcutaneous. For blood sugar 251-300, give 6 units insulin subcutaneous. For blood sugar 301-350, give 8 units insulin subcutaneous For blood sugar 351-400 or greater give 10 units insulin subcutaneous. With: Address: When: Aditya Sethi [address] [place] [address], [address] [place] [id number] [facility] (1) Within 3 to 5 days With: Address: When: None Provider Within 3 to 5 days Medication Information: The exam and treatment you received today in the [facility] Emergency Department were for an urgent problem and are not intended as complete care. It is important for you to follow up with a doctor, nurse practitioner, or physician?s assistant store director for ongoing care. If your symptoms become worse or you do not improve as expected and you are unable to reach your usual health care provider, you should return to the Emergency Department, we are available 24 hours a day. For those patients who have received Radiology results, the interpretation of your X-ray as given to you by our Emergency Department physician is only a preliminary report. The Radiologist will review your films and if there is a change in the diagnosis you will be notified by phone. Please make sure you have provided a working phone number so we can reach you if necessary. In the event that you had a lab culture while you were a patient in the Emergency Department, you will be notified by phone if there is a need to change your antibiotic. Please make sure you have provided a working phone number so we can reach you if necessary. [facility] Emergency Department has provided you with a complete list of medications post discharge. Please inform your primary class teacher/provider of your visit and for further instruction on these medications. Any specific questions regarding your chronic medications and dosages should be discussed with your primary care physician(s) and/or pharmacist. Medications to Continue That Have Not Changed Other Medications albuterol (ProAir RespiClick 90 mcg/inh inhalation powder) 1 puff(s) Inhalation Every 4 hours as needed. celecoxib (celecoxib 200 mg oral capsule) 1 cap(s) Oral every day. cyclobenzaprine (cyclobenzaprine 10 mg oral tablet) 1 tab(s) Oral 3 times a day as needed for spasm. insulin degludec (Tresiba FlexTouch 200 units/mL subcutaneous solution) 100 unit(s) Subcutaneous every day. insulin lispro (HumaLOG Javi KwikPen 100 units/mL injectable solution) 45 unit(s) Subcutaneous 3 times a day. metFORMIN (metFORMIN 500 mg oral tablet) 1 tab(s) Oral 2 times a day. naproxen Oral. omeprazole (omeprazole 20 mg oral delayed release capsule) 1 cap(s) Oral every day. rosuvastatin (rosuvastatin 20 mg oral tablet) 1 tab(s) Oral every day. Visit Information Allergies: Substance Reaction Symptoms Type Comments Demerol Drug fentaNYL Drug morphine Drug Nubain Drug penicillin Drug Toradol Drug Zithromax Drug Vital Signs: Vitals and Measurements this Visit (last charted value for your 07/14/2019 visit) Vital Signs This Visit Temperature Oral: 37.2 DegC Peripheral Pulse Rate: 117 bpm Respiratory Rate: 16 br/min Systolic Blood Pressure: 139 mmHg Diastolic Blood Pressure: 77 mmHg SpO2: 98 % Oxygen Therapy: Room air Measurements This Visit Height/Length Dosin.000 cm Height/Length Estimated: 170.000 cm Weight Dosin.930 kg Weight Estimated: 117.930 kg Problems List: Problem Onset Comments Diabetes mellitus GERD without esophagitis High cholesterol Patient Education Kidney Stones Kidney stones (urolithiasis) are solid, rock-like deposits that form inside of the organs that make urine (kidneys). A kidney stone may form in a kidney and move into the bladder, where it can cause intense pain and block the flow of urine. Kidney stones are created when high levels of certain minerals are found in the urine. They are usually passed through urination, but in some cases, medical treatment may be needed to remove them. What are the causes? Kidney stones may be caused by: ? A condition in which certain glands produce too much parathyroid hormone (primary hyperparathyroidism), which causes too much calcium buildup in the blood. ? Buildup of uric acid crystals in the bladder (hyperuricosuria). Uric acid is a chemical that the body produces when you eat certain foods. It usually exits the body in the urine. ? Narrowing (stricture) of one or both of the tubes that drain urine from the kidneys to the bladder (ureters). ? A kidney blockage that is present at (congenital obstruction). ? Past surgery on the kidney or the ureters, such as gastric bypass surgery. What increases the risk? The following factors make you more likely to develop kidney stones: ? Having had a kidney stone in the past. ? Having a family history of kidney stones. ? Not drinking enough water. ? Eating a diet that is high in protein, salt (sodium), or sugar. ? Being overweight or obese. What are the signs or symptoms? Symptoms of a kidney stone may include: ? Nausea. ? Vomiting. ? Blood in the urine (hematuria). ? Pain in the side of the abdomen, right below the ribs (flank pain). Pain usually spreads (radiates) to the groin. ? Needing to urinate frequently or urgently. How is this diagnosed? This condition may be diagnosed based on: ? Your medical history. ? A physical exam. ? Blood tests. ? Urine tests. ? CT scan. ? Abdominal X-ray. ? A procedure to examine the inside of the bladder (cystoscopy). How is this treated? Treatment for kidney stones depends on the size, location, and makeup of the stones. Treatment may involve: ? Analyzing your urine before and after you pass the stone through urination. ? Being monitored at the hospital until you pass the stone through urination. ? Increasing your fluid intake and decreasing the amount of calcium and protein in your diet. ? A procedure to break up kidney stones in the bladder using: ? A focused beam of light (laser therapy). ? Shock waves (extracorporeal shock wave lithotripsy). ? Surgery to remove kidney stones. This may be needed if you have severe pain or have stones that block your urinary tract. Follow these instructions at home: Eating and drinking ? Drink enough fluid to keep your urine clear or pale yellow. This will help you to pass the kidney stone. ? If directed, change your diet. This may include: ? Limiting how much sodium you eat. ? Eating more fruits and vegetables. ? Limiting how much meat, poultry, fish, and eggs you eat. ? Follow instructions from your health care provider about eating or drinking restrictions. General instructions ? Collect urine samples as told by your health care provider. You may need to collect a urine sample: ? 24 hours after you pass the stone. ? 8??12 weeks after passing the kidney stone, and every 6?12 months after that. ? Strain your urine every time you urinate, for as long as directed. Use the strainer that your health care provider recommends. ? Do not throw out the kidney stone after passing it. Keep the stone so it can be tested by your health care provider. Testing the makeup of your kidney stone may help prevent you from getting kidney stones in the future. ? Take safr-czg-kqzjigc and prescription medicines only as told by your health care provider. ? Keep all follow-up visits as told by your health care provider. This is important. You may need follow-up X-rays or ultrasounds to make sure that your stone has passed. How is this prevented? To prevent another kidney stone: ? Drink enough fluid to keep your urine clear or pale yellow. This is the best way to prevent kidney stones. ? Eat a healthy diet and follow recommendations from your health care provider about foods to avoid. You may be instructed to eat a low-protein diet. Recommendations vary depending on the type of kidney stone that you have. ? Maintain a healthy weight. Contact a health care provider if: ? You have pain that gets worse or does not get better with medicine. Get help right away if: ? You have a fever or chills. ? You develop severe pain. ? You develop new abdominal pain. ? You faint. ? You are unable to urinate. This information is not intended to replace advice given to you by your health care provider. Make sure you discuss any questions you have with your health care provider. Document Released: 06/15/2006 Document Revised: 11/26/2017 Document Reviewed: 11/28/2016 [employer] Interactive Patient Education ? 2019 [employer] Hyperglycemia Hyperglycemia occurs when the level of sugar (glucose) in the blood is too high. Glucose is a type of sugar that provides the body's main source of energy. Certain hormones (insulin and glucagon) control the level of glucose in the blood. Insulin lowers blood glucose, and glucagon increases blood glucose. Hyperglycemia can result from having too little insulin in the bloodstream, or from the body not responding normally to insulin. Hyperglycemia occurs most often in people who have diabetes (diabetes mellitus), but it can happen in people who do not have diabetes. It can develop quickly, and it can be life-threatening if it causes you to become severely dehydrated (diabetic ketoacidosis or hyperglycemic hyperosmolar state). Severe hyperglycemia is a medical emergency. What are the causes? If you have diabetes, hyperglycemia may be caused by: ? Diabetes medicine. ? Medicines that increase blood glucose or affect your diabetes control. ? Not eating enough, or not eating often enough. ? Changes in physical activity level. ? Being sick or having an infection. If you have prediabetes or undiagnosed diabetes: ? Hyperglycemia may be caused by those conditions. If you do not have diabetes, hyperglycemia may be caused by: ? Certain medicines, including steroid medicines, beta-blockers, epinephrine, and thiazide diuretics. ? Stress. ? Serious illness. ? Surgery. ? Diseases of the pancreas. ? Infection. What increases the risk? Hyperglycemia is more likely to develop in people who have risk factors for diabetes, such as: ? Having a family member with diabetes. ? Having a gene for type 1 diabetes that is passed from parent to child (inherited). ? Living in an area with cold weather conditions. ? Exposure to certain viruses. ? Certain conditions in which the body's disease-fighting (immune) system attacks itself (autoimmune disorders). ? Being overweight or obese. ? Having an inactive (sedentary) lifestyle. ? Having been diagnosed with insulin resistance. ? Having a history of prediabetes, gestational diabetes, or polycystic ovarian syndrome (PCOS). ? Being of Ethiopian-Wel[place], -Ethiopian, /, or / descent. What are the signs or symptoms? Hyperglycemia may not cause any symptoms. If you do have symptoms, they may include early warning signs, such as: ? Increased thirst. ? Hunger. ? Feeling very tired. ? Needing to urinate more often than usual. ? Blurry vision. Other symptoms may develop if hyperglycemia gets worse, such as: ? Dry mouth. ? Loss of appetite. ? Fruity-smelling breath. ? Weakness. ? Unexpected or rapid weight gain or weight loss. ? Tingling or numbness in the hands or feet. ? Headache. ? Skin that does not quickly return to normal after being lightly pinched and released (poor skin turgor). ? Abdominal pain. ? Cuts or bruises that are slow to heal. How is this diagnosed? Hyperglycemia is diagnosed with a blood test to measure your blood glucose level. This blood test is usually done while you are having symptoms. Your health care provider may also do a physical exam and review your medical history. You may have more tests to determine the cause of your hyperglycemia, such as: ? A fasting blood glucose (FBG) test. You will not be allowed to eat (you will fast) for at least 8 hours before a blood sample is taken. ? An A1c (hemoglobin A1c) blood test. This provides information about blood glucose control over the previous 2?3 months. ? An oral glucose tolerance test (OGTT). This measures your blood glucose at two times: ? After fasting. This is your baseline blood glucose level. ? Two hours after drinking a beverage that contains glucose. How is this treated? Treatment depends on the cause of your hyperglycemia. Treatment may include: ? Taking medicine to regulate your blood glucose levels. If you take insulin or other diabetes medicines, your medicine or dosage may be adjusted. ? Lifestyle changes, such as exercising more, eating healthier foods, or losing weight. ? Treating an illness or infection, if this caused your hyperglycemia. ? Checking your blood glucose more often. ? Stopping or reducing steroid medicines, if these caused your hyperglycemia. If your hyperglycemia becomes severe and it results in hyperglycemic hyperosmolar state, you must be hospitalized and given IV fluids. Follow these instructions at home: General instructions ? Take unhx-qls-gqndkwx and prescription medicines only as told by your health care provider. ? Do not use any products that contain nicotine or tobacco, such as cigarettes and e-cigarettes. If you need help quitting, ask your health care provider. ? Limit alcohol intake to no more than 1 drink per day for non women and 2 drinks per day for men. One drink equals 12 oz of beer, 5 oz of wine, or 1? oz of hard liquor. ? Learn to manage stress. If you need help with this, ask your health care provider. ? Keep all follow-up visits as told by your health care provider. This is important. Eating and drinking ? Maintain a healthy weight. ? Exercise regularly, as directed by your health care provider. ? Stay hydrated, especially when you exercise, get sick, or spend time in hot temperatures. ? Eat healthy foods, such as: ? Lean proteins. ? Complex carbohydrates. ? Fresh fruits and vegetables. ? Low-fat dairy products. ? Healthy fats. ? Drink enough fluid to keep your urine clear or pale yellow. If you have diabetes: ? Make sure you know the symptoms of hyperglycemia. ? Follow your diabetes management plan, as told by your health care provider. Make sure you: ? Take your insulin and medicines as directed. ? Follow your exercise plan. ? Follow your meal plan. Eat on time, and do not skip meals. ? Check your blood glucose as often as directed. Make sure to check your blood glucose before and after exercise. If you exercise longer or in a different way than usual, check your blood glucose more often. ? Follow your sick day plan whenever you cannot eat or drink normally. Make this plan in advance with your health care provider. ? Share your diabetes management plan with people in your workplace, school, and household. ? Check your urine for ketones when you are ill and as told by your health care provider. ? Carry a medical alert card or wear medical alert jewelry. Contact a health care provider if: ? Your blood glucose is at or above 240 mg/dL (13.3 mmol/L) for 2 days in a row. ? You have problems keeping your blood glucose in your target range. ? You have frequent episodes of hyperglycemia. Get help right away if: ? You have difficulty breathing. ? You have a change in how you think, feel, or act (mental status). ? You have nausea or vomiting that does not go away. These symptoms may represent a serious problem that is an emergency. Do not wait to see if the symptoms will go away. Get medical help right away. Call your local emergency services (911 in the [place] Do not drive yourself to the hospital. Summary ? Hyperglycemia occurs when the level of sugar (glucose) in the blood is too high. ? Hyperglycemia is diagnosed with a blood test to measure your blood glucose level. This blood test is usually done while you are having symptoms. Your health care provider may also do a physical exam and review your medical history. ? If you have diabetes, follow your diabetes management plan as told by your health care provider. ? Contact your health care provider if you have problems keeping your blood glucose in your target range. This information is not intended to replace advice given to you by your health care provider. Make sure you discuss any questions you have with your health care provider. Document Released: 12/09/2001 Document Revised: 03/02/2017 Document Reviewed: 03/02/2017 [employer] Patient Education ? 2019 [employer] Hematuria, Adult Hematuria is blood in the urine. Blood may be visible in the urine, or it may be identified with a test. This condition can be caused by infections of the bladder, urethra, kidney, or prostate. Other possible causes include: ? Kidney stones. ? Cancer of the urinary tract. ? Too much calcium in the urine. ? Conditions that are passed from parent to child (inherited conditions). ? Exercise that requires a lot of energy. Infections can usually be treated with medicine, and a kidney stone usually will pass through your urine. If neither of these is the cause of your hematuria, more tests may be needed to identify the cause of your symptoms. It is very important to tell your health care provider about any blood in your urine, even if it is painless or the blood stops without treatment. Blood in the urine, when it happens and then stops and then happens again, can be a symptom of a very serious condition, including cancer. There is no pain in the initial stages of many urinary cancers. Follow these instructions at home: Medicines ? Take rfxj-hwr-gkylsgl and prescription medicines only as told by your health care provider. ? If you were prescribed an antibiotic medicine, take it as told by your health care provider. Do not stop taking the antibiotic even if you start to feel better. Eating and drinking ? Drink enough fluid to keep your urine clear or pale yellow. It is recommended that you drink 3?4 quarts (2.8?3.8 L) a day. If you have been diagnosed with an infection, it is recommended that you drink cranberry juice in addition to large amounts of water. ? Avoid caffeine, tea, and carbonated beverages. These tend to irritate the bladder. ? Avoid alcohol because it may irritate the prostate (men). General instructions ? If you have been diagnosed with a kidney stone, follow your health care provider's instructions about straining your urine to catch the stone. ? Empty your bladder often. Avoid holding urine for long periods of time. ? If you are female: ? After a bowel movement, wipe from front to back and use each piece of toilet paper only once. ? Empty your bladder before and after sex. ? Pay attention to any changes in your symptoms. Tell your health care provider about any changes or any new symptoms. ? It is your responsibility to get your test results. Ask your health care provider, or the department performing the test, when your results will be ready. ? Keep all follow-up visits as told by your health care provider. This is important. Contact a health care provider if: ? You develop back pain. ? You have a fever. ? You have nausea or vomiting. ? Your symptoms do not improve after 3 days. ? Your symptoms get worse. Get help right away if: ? You develop severe vomiting and are unable take medicine without vomiting. ? You develop severe pain in your back or abdomen even though you are taking medicine. ? You pass a large amount of blood in your urine. ? You pass blood clots in your urine. ? You feel very weak or like you might faint. ? You faint. Summary ? Hematuria is blood in the urine. It has many possible causes. ? It is very important that you tell your health care provider about any blood in your urine, even if it is painless or the blood stops without treatment. ? Take qccm-uet-tqybxgj and prescription medicines only as told by your health care provider. ? Drink enough fluid to keep your urine clear or pale yellow. This information is not intended to replace advice given to you by your health care provider. Make sure you discuss any questions you have with your health care provider. Document Released: 06/15/2006 Document Revised: 07/18/2017 Document Reviewed: 07/18/2017 [employer] Patient Education ? 2019 [employer] Viruses or Bacteria What?s got you sick? Antibiotics only treat bacterial infections. Viral illnesses cannot be treated with antibiotics. When an antibiotic is not prescribed, ask your healthcare professional for tips on how to relieve symptoms and feel better. Usual Cause Illness Viruses Bacteria Antibiotic Needed Cold/Runny Nose NO Bronchitis/Chest Cold (in otherwise healthy children and adults) NO Whooping Cough Yes Flu NO Strep Throat Yes Sore Throat (except strep) NO Fluid in the middle ear (otitis media with effusion) NO Urinary Tract Infection Yes Antibiotics Aren?t Always the Answer www.cdc.gov/getsmart GET SMART Know When Antibiotics Work [place] Department of Health and Human Services Centers for Disease Control and Prevention February 2014 Normal [facility] .Auto Diff 07-14-2019 Auto [place] % 7 % Normal 07-10 [facility] Comment on above: Performed By: #### 1 [id number], [id number], 1281632, 97719350, 8022562, [id number] #### [facility] (DEFAULT) [address] [place] [address] Baso Abs# 0.0 x10 Normal 0.0-0.2 [facility] Comment on above: Performed By: #### 1 [id number], [id number], 4606920, 07827453, 8108576, [id number] #### [facility] (DEFAULT) [address] [place] [address] Basophils/100 WBC (Bld) 0.5 % Normal 0.2-2.0 [facility] Comment on above: Performed By: #### 1 [id number], [id number], 5962538, 16542480, 0933325, [id number] #### [facility] (DEFAULT) [address] [place] [address] Eos Abs# 0.2 x10 Normal 0.0-0.4 [facility] Comment on above: Performed By: #### 1 [id number], [id number], 1460481, 19924223, 3285302, 1219035889 #### [facility] (DEFAULT) [address] [place] [address] Eosinophils/100 WBC (Bld) 2.3 % Normal 0.9-4.0 [facility] Comment on above: Performed By: #### 1 [id number], [id number], 7130926, 84478545, 9563276, 2924709355 #### [facility] (DEFAULT) [address] [place] [address] Lymphocytes (Bld) [#/Vol] 2.2 x10 Normal 1.3-2.9 [facility] Comment on above: Performed By: #### 1 [id number], 1634644415, 7182764, 39630739, 3113249, [id number] #### [facility] (DEFAULT) [address] [place] [address] Lymphocytes/100 WBC (Bld) 25 % Normal 14-48 [facility] Comment on above: Performed By: #### 1 [id number], 1953106371, 6623640, 01315709, 4864191, 1158166672 #### [facility] (DEFAULT) [address] [place] [address] [place] Abs# 0.6 x10 Normal 0.0-0.8 [facility] Comment on above: Performed By: #### 1 [id number], 1624446248, 4847535, 94508099, 4013695, 0685793751 #### [facility] (DEFAULT) [address] [place] [address] Neut Abs# 5.6 x10 Normal 1.5-9.2 [facility] Comment on above: Performed By: #### 1 [id number], 2703386250, 9798068, 44832703, 9233646, 2080492693 #### [facility] (DEFAULT) [address] [place] [address] Neutrophils/100 WBC (Bld) 65 % Normal 44-88 [facility] Comment on above: Performed By: #### 1 [id number], 8974400279, 9624302, 07631512, 7388202, 6872373343 #### [facility] (DEFAULT) [address] [place] [address] CBC Auto DifferentialOrdered By: Rickey Davis on 07-14-2019 Basophils (Bld) [#/Vol] 0.1 10*3/uL 0 - 0.2 K/uL L2 Phone: Basophils/100 WBC (Bld) 1.1 % L2 Phone: Eosinophils (Bld) [#/Vol] 0.2 10*3/uL 0 - 0.7 K/uL L2 Phone: Eosinophils/100 WBC (Bld) 2.5 % L2 Phone: Erythrocyte distribution width (RBC) [Ratio] 15.2 % High 11.5 - 14.5 % L2 Phone: Hematocrit (Bld) [Volume fraction] 39.7 % 37 - 47 % L2 Phone: Hemoglobin (Bld) [Mass/Vol] 13.6 g/dL 12 - 16 g/dL L2 Phone: Interpretation and review of laboratory results Abnormal L2 Phone: Lymphocytes (Bld) [#/Vol] 1.7 10*3/uL 1 - 4.8 K/uL L2 Phone: Lymphocytes/100 WBC (Bld) 21.3 % L2 Phone: MCH (RBC) [Entitic mass] 27.6 pg 27 - 31.3 pg L2 Phone: MCHC 34.3 % 33 - 37 % L2 Phone: MCV (RBC) [Entitic vol] 80.5 fL Low 82 - 100 fL L2 Phone: Monocytes (Bld) [#/Vol] 0.5 10*3/uL 0.2 - 0.8 K/uL L2 Phone: Monocytes/100 WBC (Bld) 6.7 % L2 Phone: Neutrophils Absolute 5.6 K/uL 1.4 - 6 .5 K/uL L2 Phone: Neutrophils/100 WBC (Bld) 68.4 % L2 Phone: Platelets (Bld) [#/Vol] 235 10*3/uL 130 - 400 K/uL L2 Phone: RBC (Bld) [#/Vol] 4.93 10*6/uL L2 Phone: WBC (Bld) [#/Vol] 8.1 10*3/uL 4.8 - 10.8 K/uL L2 Phone: CBC w/ Auto Diffon 0 Erythrocyte distribution width (RBC) [Ratio] 14.9 % Normal 11.5-15.0 [facility] Comment on above: Performed By: #### 1 [id number], 1414115235, 1410054, 89658155, 1204432, [id number] #### [facility] (DEFAULT) [address] [place] [address] Hematocrit (Bld) [Volume fraction] 38.1 % Normal 33.7-40.4 [facility] Comment on above: Performed By: #### 1 [id number], 1927576671, 9872563, 46355538, 3394847, 5624187250 #### [facility] (DEFAULT) [address] [place] [address] Hemoglobin (Bld) [Mass/Vol] 13.1 g/dL Normal 11.3-15.9 [facility] Comment on above: Performed By: #### 1 [id number], 3489256436, 4632553, 68249446, 7750185, 3771424415 #### [facility] (DEFAULT) [address] [place] [address] Man Diff? Auto Normal [facility] Comment on above: Performed By: #### 1 [id number], 9887930091, 1464264, 44553071, 8437268, 4619295334 #### [facility] (DEFAULT) [address] [place] [address] MCH (RBC) [Entitic mass] 27 pg Normal 24-34 [facility] Comment on above: Performed By: #### 1 [id number], 7848954642, 7028659, 16114436, 8277459, 4066148249 #### [facility] (DEFAULT) [address] [place] [address] MCHC (RBC) [Mass/Vol] 34 g/dL Normal 26-37 [facility] Comment on above: Performed By: #### 1 [id number], 8198107995, 9461766, 44917054, 9144928, 2786783569 #### [facility] (DEFAULT) [address] [place] [address] MCV (RBC) [Entitic vol] 79 fL Low 81-100 [facility] Comment on above: Performed By: #### 1 [id number], 6697444723, 2203083, 95152889, 4191698, 1221217053 #### [facility] (DEFAULT) [address] [place] [address] Platelet mean volume (Bld) [Entitic vol] 9.5 fL Normal 6.3-10.2 [facility] Comment on above: Performed By: #### 1 [id number], 0562684592, 5288055, 48287479, 3174214, 0513340760 #### [facility] (DEFAULT) [address] [place] [address] Platelets (Bld) [#/Vol] 255 x10 Normal 138-427 [facility] Comment on above: Performed By: #### 1 [id number], 4346984393, 4239951, 14356528, 8580019, 9964516902 #### [facility] (DEFAULT) [address] [place] [address] RBC (Bld) [#/Vol] 4.81 x10 Normal 3.70-5.30 [facility] Comment on above: Performed By: #### 1 [id number], 9089714838, 1524129, 02638773, 3045762, 7245662154 #### [facility] (DEFAULT) [address] [place] [address] WBC (Bld) [#/Vol] 8.7 x10 Normal 3.5-10.5 [facility] Comment on above: Performed By: #### 1 [id number], 1417733974, 3369885, 89915800, 9551034, 9460325968 #### [facility] (DEFAULT) [address] [place] [address] CMP [place] 07-14-2019 eGFR Non AA >60 [facility] Comment on above: Performed By: #### 1 [id number], 3847653804, 2970202, 87251176, 2738942, 8837950906 #### [facility] (DEFAULT) [address] [place] [address] eGFR AA >60 [facility] Comment on above: Result Comment: [employer] aiyana Kidney disease could be indicated at eGFRs of less than 60 ml/min/1.73m2. Kidney Failure is indicated at less than 15 ml/min/1.73m2 Performed By: #### 1 [id number], 5913642603, 5274975, 59449338, 9779183, 9118984137 #### [facility] (DEFAULT) [address] [place] [address] Albumin [Mass/Vol] 4.2 g/dL Normal 3.5-5.0 [facility] Comment on above: Performed By: #### 1 [id number], 2499592499, 8952254, 72515097, 1865902, 4297186720 #### [facility] (DEFAULT) [address] [place] [address] Albumin/Globulin [Mass ratio] 1.2 {ratio} Low 1.4-2.6 [facility] Comment on above: Performed By: #### 1 [id number], 5255156120, 6966320, 51525580, 2335151, 1112436521 #### [facility] (DEFAULT) [address] [place] [address]36 Alk Phos 73 IU/L Normal 32-91 [facility] Comment on above: Performed By: #### 1 [id number], 8655500366, 1344678, 43177637, 7549154, 7580949805 #### [facility] (DEFAULT) [address] [place] [address]8438 ALT/SGPT 17.0 IU/L Normal 14.0-54.0 [facility] Comment on above: Performed By: #### 1 [id number], 2526904411, 0391043, 61535790, 2479108, 0870464036 #### [facility] (DEFAULT) [address] [place] [address] Anion gap [Moles/Vol] 16.0 mmol/L Normal 5.0-19.0 [facility] Comment on above: Performed By: #### 1 [id number], 6931932246, 0995253, 46597595, 5574183, 9607726128 #### [facility] (DEFAULT) [address] [place] [address]883 AST/SGOT 17 IU/L Normal 15-41 [facility] Comment on above: Performed By: #### 1 [id number], 2935676327, 2385383, 24450603, 1388179, 7653053640 #### [facility] (DEFAULT) [address] [place] [address]63 Bili Total 0.6 mg/dL Normal 0.3-1.2 [facility] Comment on above: Performed By: #### 1 [id number], 9902935801, 2806174, 05462716, 5501293, 3304987972 #### [facility] (DEFAULT) [address] [place] [address] Calcium [Mass/Vol] 9.6 mg/dL Normal 8.9-10.3 [facility] Comment on above: Performed By: #### 1 [id number], 2669299076, 5019794, 83352709, 0677882, 1403604413 #### [facility] (DEFAULT) [address] [place] [address]13 Chloride [Moles/Vol] 97 mmol/L Low 101-111 [facility] Comment on above: Performed By: #### 1 [id number], 6336100954, 2992340, 35243916, 3445818, 3895939200 #### [facility] (DEFAULT) [address] [place] [address]396 CO2 [Moles/Vol] 26 mmol/L Normal 21-32 [facility] Comment on above: Performed By: #### 1 [id number], 3825691415, 9114602, 50144897, 9695570, 0644981038 #### [facility] (DEFAULT) [address] [place] [address]46 Creatinine [Mass/Vol] 0.89 mg/dL Normal 0.60-1.30 [facility] Comment on above: Performed By: #### 1 [id number], 2110926123, 4773369, 44842224, 0077998, 2434490425 #### [facility] (DEFAULT) [address] [place] [address]31 Globulin (S) [Mass/Vol] 3.5 g/dL Normal 1.5-4.3 [facility] Comment on above: Performed By: #### 1 [id number], 2735264747, 0804621, 97472050, 7752850, 8779506554 #### [facility] (DEFAULT) [address] [place] [address]906 Glucose [Mass/Vol] 419.0 mg/dL High 74.0-118.0 [facility] Comment on above: Performed By: #### 1 [id number], 8410953317, 0277205, 51211943, 6232731, 5101713499 #### [facility] (DEFAULT) [address] [place] [address] Osmolality [Osmolality] 289 mOsm/L [facility] Comment on above: Performed By: #### 1 [id number], 0369501493, 1774814, 40260404, 8907129, 8499241195 #### [facility] (DEFAULT) [address] [place] [address]71 Potassium [Moles/Vol] 4.0 mmol/L Normal 3.6-5.1 [facility] Comment on above: Performed By: #### 1 [id number], 7988060602, 7841674, 77599397, 2687095, 8844868582 #### [facility] (DEFAULT) [address] [place] [address] Protein [Mass/Vol] 7.7 g/dL Normal 6.5-8.1 [facility] Comment on above: Performed By: #### 1 [id number], 4774501895, 3066290, 49604184, 4499810, 4340306366 #### [facility] (DEFAULT) [address] [place] [address]18 Sodium [Moles/Vol] 135.0 mmol/L Low 136.0-144 . 0 [facility] Comment on above: Performed By: #### 1 [id number], 9239890414, 0439380, 97109991, 8416597, 9376105160 #### [facility] (DEFAULT) [address] [place] [address]181 Urea nitrogen [Mass/Vol] 17 mg/dL Normal 8- [facility] Comment on above: Performed By: #### 1 [id number], 1915488729, 1474217, 40991192, 7692645, 1266151190 #### [facility] (DEFAULT) [address] [place] [address]86 Urea nitrogen/Creatinine [Mass ratio] 19.0 mg/mg High 4.6-16.2 [facility] Comment on above: Performed By: #### 1 [id number], 3748889698, 4365734, 34176058, 5521584, 4860263612 #### [facility] (DEFAULT) [address] [place] [address] Comprehensive Metabolic Pane lOrdered By: Rickey Davis on 07-14-2019 Albumin [Mass/Vol] 4.3 g/dL 3.5 - 4.6 g/dL L2 Phone: ALP [Catalytic activity/Vol] 91 U/L 40 - 130 [facility]: ALT [Catalytic activity/Vol] 14 U/L 0 - 33 U/L [facility]: Anion gap [Moles/Vol] 13 mmol/L [facility] Phone: AST [Catalytic activity/Vol] 14 U/L 0 - 35 U/L [facility]: Bilirubin [Mass/Vol] 0.3 mg/dL 0.2 - 0 .7 mg/dL [facility]: Calcium [Mass/Vol] 9.0 mg/dL 8.5 - 9.9 mg/dL [facility] [facility] Phone: Chloride [Moles/Vol] 100 mmol/L [employer] Phone: CO2 [Moles/Vol] 22 mmol/L [facility] Work Phone: Creatinine [Mass/Vol] 0.59 mg/dL 0.5 - 0.9 mg/dL [facility] Phone: GFR >60.0 >60 [facility] [employer] Work Phone: Comment on above: >60 mL/min/1.73m2 EG FR, calc. for ages 18 and older using the MDRD formula (not corrected for weight), is valid for stable renal function. GFR Non- >60.0 >60 [facility] Phone: Comment on above: >60 mL/min/1.73m2 EG FR, calc. for ages 18 and older using the MDRD formula (not corrected for weight), is valid for stable renal function. Globulin (S) [Mass/Vol] 3.3 g/dL 2.3 - 3.5 g/dL [facility] Work Phone: Glucose [Mass/Vol] 288 mg/dL High 70 - 99 mg/dL [facility] [employer] Phone: Interpretation and review of laboratory results Abnormal [facility] [employer] Phone: Potassium [Moles/Vol] 4.3 mmol/L [facility] [employer] Work Phone: Protein [Mass/Vol] 7.6 g/dL 6.3 - 8 g/dL [facility] [employer] Phone: Sodium [Moles/Vol] 135 mmol/L [facility] [employer] Phone: Urea nitrogen [Mass/Vol] 13 mg/dL 6 - 20 mg/dL [facility] Phone: ED Note - Physicianon 2019 ED Note - Physician Patient: VIOLETA CARLTON CIA Age: 44 years Sex: FEMALE : 1975 Associated Diagnoses: Flank pain; Hematuria, microscopic; History of kidney stones; Hyperglycemia; Lactic acid blood increased; Nausea; Tachycardia Author: Casper Tate Basic Information Time seen: Date & time 07/14/2019 20:35:00. History source: Patient. Arrival mode: Private vehicle. History limitation: None. History of Present Illness Patient is a 44-year-old female with a previous history of kidney stone since 2006, recent kidney stone on the left side about 2 weeks ago, diabetes, GERD, hypercholesterolemia, who presents to the emergency department with complaints of right-sided flank pain that started earlier today consistent with kidney stone type pain the patient had in the past, patient seen in room 7. Patient has a long history of kidney stones, and reports that she had one on the left side 2 weeks ago, was seen and had CT scan, and was treated with pain medication medication for nausea and antibiotics. She states she was doing good up until this afternoon when she started to have pain on the opposite side, right side and now having pain similar to previous kidney stone pain. She has been nauseous and had 2 episodes of vomiting this afternoon, she is having right flank pain. Patient denies any shortness of breath, chest pain, hematuria, but admits to dysuria this afternoon. Review of Systems Constitutional symptoms: No fever, no chills. Skin symptoms: No rash, no abrasions. Eye symptoms: No discharge, no diplopia, no blurred vision. ENMT symptoms: Negative except as documented in HPI. Respiratory symptoms: No shortness of breath, Cardiovascular symptoms: No chest pain, Gastrointestinal symptoms: No abdominal pain, no nausea, no vomiting. Genitourinary symptoms: Negative except as documented in HPI. Musculoskeletal symptoms: Negative except as documented in HPI. Health Status Allergies: No allergies have been recorded.. Past Medical/ Family/ Social History Medical history: No active or resolved past medical history items have been selected or recorded.. Surgical history: No active procedure history items have been selected or recorded.. Family history: No family history items have been selected or recorded.. Social history: Social & Psychosocial Habits No Data Available . Problem list: No qualifying data available . Physical Examination General: Alert, no acute distress. Vital Signs Skin: Warm, dry. Head: Normocephalic, atraumatic. Neck: Supple, trachea midline. Eye: Extraocular movements are intact, normal conjunctiva. Ears, nose, mouth and throat: Oral mucosa moist. Cardiovascular: +S1, S2 Regular. Respiratory: Lungs are clear to auscultation, respirations are non-labored, breath sounds are equal. Gastrointestinal: Patient's abdomen is obese, there are positive bowel sounds throughout, there is some tenderness in the right mid flank, otherwise unremarkable abdomen. There is no guarding or rebound. Back: CVA tenderness on the right, negative on the left. Neurological: Alert and oriented to person, place, time, and situation, No focal neurological deficit observed. Psychiatric: Cooperative. Medical Decision Making Differential Diagnosis: Abdominal pain, Appendicitis, renal stone, ureteral stone, urinary tract infection, pyelonephritis, Malingering/drug-seeking. Orders Launch Orders Laboratory: Urinalysis with Culture, if indicated Standard (Order): Urine, Routine collect, 07/14/2019 21:04 EST, Nurse collect Lactic Acid (Order): Blood, Stat collect, 07/14/2019 21:00 EST, Lab Collect Lipase Level (Order): Blood, Routine collect, 07/14/2019 21:00 EST, Lab Collect CMP Standard (Order): Blood, Stat collect, 07/14/2019 21:00 EST, Lab Collect CBC w/ Auto Diff (Order): Blood, Stat collect, 07/14/2019 21:00 EST, Lab Collect Pharmacy: Phenergan (Order): 25 mg, IM, Once Dilaudid (Order): 1 mg, IM, Once Radiology: XR Abdomen Single View (KUB) (Order): 07/14/2019 21:05 EST Stat, Kidney stone right?, Allow Modification Per Radiologist, Transport Mode: Wheelchair, Patient with a history of multiple kidney stones, multiple CT scans, recent history of left-sided kidney stone 2 weeks ago, now on right side, Launch Orders Pharmacy: [facility] (Order): 10 unit(s), SubQ, Once, Launch Orders Pharmacy: [facility] (Order): 10 unit(s), SubQ, Once. Results review: Lab results : Lab Flowsheet 07/14/2019 21:06 EST Sodium Level 135.0 mmol/L LOW Potassium Level 4.0 mmol/L Chloride Level 97 mmol/L LOW CO2 26 mmol/L Anion Gap 16.0 mmol/L Glucose Level 419.0 mg/dL HI BUN 17 mg/dL Creatinine Level 0.89 mg/dL BUN/Creat Ratio 19.0 HI eGFR AA >60 mL/min/1.73m2 NA eGFR Non AA >60 mL/min/1.73m2 NA Calcium Level 9.6 mg/dL Bili Total 0.6 mg/dL Alk Phos 73 IU/L AST/SGOT 17 IU/L ALT/SGPT 17.0 IU/L Protein Total 7.7 gm/dL Albumin Level 4.2 gm/dL Globulin 3.5 gm/dL A/G Ratio 1.2 LOW Lipase Level 39.0 IU/L Osmolality 289 mOsm/L NA Lactic Acid 20.7 mg/dL HI WBC 8.7 x103/mcL RBC 4.81 x106/mcL Hgb 13.1 gm/dL Hct 38.1 % MCV 79 fL LOW MCH 27 pg MCHC 34 gm/dL RDW 14.9 % Platelet 255 x103/mcL MPV 9.5 fL Auto Neut % 65 % Auto Lymph % 25 % Auto [place] % 7 % Auto Eos % 2.3 % Auto Baso % 0.5 % Neut Abs# 5.6 x103/mcL Lymph Abs# 2.2 x103/mcL [place] Abs# 0.6 x103/mcL Eos Abs# 0.2 x103/mcL Baso Abs# 0.0 x103/mcL UA Color Yellow UA Clarity SL CLOUDY UA Glucose 1000 mg/dL UA Ketones NEGATIVE UA Spec Grav 1.020 UA Blood LARGE UA pH 6.0 UA Protein NEGATIVE mg/dL UA Urobilinogen 0.2 mg/dL UA Nitrite NEGATIVE UA Leuk Est NEGATIVE UA Bilirubin NEGATIVE Urine Source Clean Catch Micro? Indicated Culture? Not Indicated UA WBC 0-2 UA RBC >100 UA Squam Epi Moderate UA Bacteria Trace Tube Collected Yes Tube Collected Yes . Reexamination/ Reevaluation Patient is a 44-year-old female who presents to the emergency department for evaluation of right flank pain and history of kidney stones. From history, patient has had kidney stone since 2006, and asked reports that she had a left-sided kidney stone 2 weeks ago and was seen at a local hospital. From review, she was started on Bactrim, medication for pain, Zofran, and Flomax. She reports that she is currently not on any antibiotics, does not have any pain medication left, and that Zofran does not help with her nausea. She reports that she started to have symptoms this afternoon with nausea and vomiting x2, and right-sided flank pain. She gave me her history, and initially stated she did not want to have any CT scans that she has had too many already. I discussed with that we can obtain a laboratory work-up, and try to identify a renal calculi on a single KUB film. If she has urinary tract infection we can treat that with antibiotics, provide her medication for nausea, and will evaluate her complaint of right flank pain at that time. She was in agreement for laboratory work-up. We will medicate her with IM injection of Phenergan, and Dilaudid, she cannot take anything orally at this time. Patient's urinalysis comes back negative for indices consistent with infection, there is a large amount of blood present. Patient CBC returns unremarkable with no acute signs consistent with infection. Patient was initially tachycardic when she came in the heart rate about 130, but after providing her with injection of Dilaudid, and Phenergan, her heart rate was rechecked and was 114 9:42 PM. I discussed her that she may have some mild dehydration from vomiting she had a couple episodes of vomiting, and I offered her some IV fluid. Patient declined IV fluid. Patient's CMP returns with a glucose of 419, lactic acid is elevated at 20.7, are normal high is 19.8, I discussed this with the patient and she does not want IV fluid. She did agree to having 10 units of regular insulin, so we will give this to her. We discussed about a sliding scale, but she does not have one so can provide her with a copy to review. Patient's blood sugar was rechecked at 10:38 PM, and was down to 405, will provide her with another 10 units of insulin. Discussed with supervising physician, she will evaluate and discharge patient after rechecking blood sugar. All treatment plan was discussed with patient, and follow-up instructions she indicated verbal understanding agreement. Patient was provided the insulin, but refused to stay and wait for results, we discussed the risks of leaving the hospital AGAINST MEDICAL ADVICE, including DKA, partial or permanent disability, including complications which could lead to . Patient indicated that she understood this and wanted to be discharged AGAINST MEDICAL ADVICE the appropriate paperwork was filled out and signed, and she was discharged. Impression and Plan Diagnosis Flank pain (KIW71-WW R10.9, Discharge, Medical) Hematuria, microscopic (MMO63-GJ R31.29, Discharge, Medical) History of kidney stones ([id number]-SR Z87.442, Discharge, Medical) Hyperglycemia (UAV31-CU R73.9, Discharge, Medical) Lactic acid blood increased (DRC54-OE R79.89, Discharge, Medical) Nausea (STI30-TG R11.0, Discharge, Medical) Tachycardia (BSB26-YO R00.0, Discharge, Medical) Plan Condition: Improved, Stable. Disposition: Discharged: Time 07/14/2019 22:58:00, to home. Patient was given the following educational materials: Hematuria, Adult, Hyperglycemia, Kidney Stones, Kidney Stones, Hyperglycemia, Hematuria, Adult, Kidney Stones, Hyperglycemia, Hematuria, Adult, Kidney Stones, Hyperglycemia, Hematuria, Adult. Follow up with: Aditya Sethi Within 3 to 5 days; Follow-up with Skye Jones tomorrow for reevaluation In 1 day 07/15/2019 Diagnosis is right flank pain, hematuria, history of kidney stones, nausea, tachycardia, elevated lactic acid, and hyperglycemia. From history, you have had kidney stones in the past, report that you feel like you are having a stone now, on the right side, as you had one on the left 2 weeks ago. We discussed about a laboratory work-up including a CT scan but you declined at this time. We obtained an x-ray of abdomen. But shows no evidence of obvious kidney stone. Laboratory work-up showed no signs of infection nor did your urinalysis. We did not start you on antibiotics. We provided you with medication in the form of Dilaudid, and Phenergan to help with nausea and vomiting. We also provide you with 10 units of regular insulin since your blood sugar was elevated at 419. We discussed about IV fluids to help treat your elevated lactic acid, and your elevated heart rate but you declined. As discussed make sure you keep hydrated, check your blood sugar when you get home and treat accordingly. Follow-up with your primary care provider tomorrow and discussed with her your elevated lactic acid level, and being here in the emergency department for kidney stone. You may follow-up with your own urologist in the next 3 to 5 days, or you may follow-up with the one listed on this discharge paperwork. Return to the emergency department for worsening symptoms or concerns, spiking fevers, intractable nausea or vomiting, acute shortness of breath or chest pain, or any questions. I included a sliding scale, for use with regular type insulin. Diet: ADA diet to start Insulin sliding scale Humulin R Call primary care physician if blood sugars less than 60 or greater than 400 For blood sugar between 61 and 150 no intervention For blood sugar 151-200, give 2 units insulin subcutaneous. For blood sugar to 1-250, give 4 units insulin subcutaneous. For blood sugar 251-300, give 6 units insulin subcutaneous. For blood sugar 301-350, give 8 units insulin subcutaneous For blood sugar 351-400 or greater give 10 units insulin subcutaneous. ; None Provider Within 3 to 5 days. Counseled: Patient, Regarding diagnosis, Regarding diagnostic results, Regarding treatment plan, Regarding prescription, Patient indicated understanding of instructions. [Electronically Signed on: 07/14/2019 23:02 EST] Casper Tate [Verified on: 07/14/2019 23:02 EST] Casper Tate [facility] ED Note-Nursingon 07-14-2019 ED Note-Nursing Pt arrives to ED mal m 7 complaining of right side flank pain that started a couple of hours prior to arrival. Pt states she has a History of Kidney stones. She rates the pain a 7/10, she states it also jordan a little when she urinates. Pt denies any other complaints at this time. She is currently resting on cart. [facility] Extra Redon 07-14-2019 Tube Collected Yes [facility] Comment on above: Performed By: #### 1 [id number] #### [facility] (DEFAULT) [address] [place] [address] Lactic Acidon 07-14-2019 Lactate [Moles/Vol] 20.7 mg/dL High 4.5-19.8 [facility] Comment on above: Performed By: #### 2 [id number] ####[facility] (DEFAULT)[address] [place] [address] Lipaseon 07-14-2019 Lipase Level 39.0 IU/L Normal 22.0-51.0 [facility] Comment on above: Performed By: #### 1 [id number] #### [facility] (DEFAULT) [address] [place] [address] Microscopic UrinalysisOrdere d By: Rickey Davis on 07-14-2019 Bacteria, UA RARE Abnormal /HPF [employer] Work Phone: Epi Cells 6-10 [facility] Work Phone: Hyaline Casts, UA 5-10 [facility] Work Phone: Interpretation and review of laboratory results Abnormal [employer] Work Phone: RBC (U) [#/Vol] /uL [facility] Work Phone: WBC, UA 20-50 Abnormal [facility] Work Phone: UA [id number] 07-14-2019 RBC (U) [#/Vol] /uL Normal [facility] Comment on above: Order Comment: Urina lysis Microscopic order added on by [employer] system. Performed By: #### 1 [id number], [id number] #### [facility] (DEFAULT) [address] [place] [address] UA Bacteria Trace Normal [facility] Comment on above: Order Comment: Urina lysis Microscopic order added on by [employer] system. Performed By: #### 1 [id number], [id number] #### [facility] (DEFAULT) [address] [place] [address] UA Squam Epi Moderate Normal [facility] Comment on above: Order Comment: Urina lysis Microscopic order added on by [employer] system. Performed By: #### 1 [id number], [id number] #### [facility] (DEFAULT) [address] [place] [address] UA WBC 0-2 Normal [facility] Comment on above: Order Comment: Urina lysis Microscopic order added on by [employer] Rules system. Performed By: #### 1 [id number], [id number] #### [facility] (DEFAULT) [address] [place] [address] UA w Culture if Ind Standard on 07-14-2019 Breakpoint UA [facility] Comment on above: Performed By: #### 1 [id number], [id number] #### [facility] (DEFAULT) [address] [place] [address] Color (U) Yellow Normal [facility] Comment on above: Performed By: #### 1 [id number], [id number] #### [facility] (DEFAULT) [address] [place] [address] Culture? Not Indicated [facility] Comment on above: Performed By: #### 1 [id number], [id number] #### [facility] (DEFAULT) [address] [place] [address] Glucose (U) [Mass/Vol] 1000 mg/dL Normal [facility] Comment on above: Performed By: #### 1 [id number], [id number] #### [facility] (DEFAULT) [address] [place] [address]06 Ketones Ql (U) Negative Normal [facility] Comment on above: Performed By: #### 1 [id number], [id number] #### [facility] (DEFAULT) [address] [place] [address] Micro? Indicated Normal [facility] Comment on above: Performed By: #### 1 [id number], [id number] #### [facility] (DEFAULT) [address] [place] [address] UA Bilirubin Negative Normal [facility] Comment on above: Performed By: #### 1 [id number], [id number] #### [facility] (DEFAULT) [address] [place] [address] UA Blood LARGE Abnormal NEGATIVE [facility] Comment on above: Performed By: #### 1 [id number], [id number] #### [facility] (DEFAULT) [address] [place] [address] UA Clarity SL CLOUDY Abnormal CLEAR [facility] Comment on above: Performed By: #### 1 [id number], [id number] #### [facility] (DEFAULT) [address] [place] [address] UA Leuk Est Negative Normal NEGATIVE [facility] Comment on above: Performed By: #### 1 [id number], [id number] #### [facility] (DEFAULT) [address] [place] [address]7 UA Nitrite Negative Normal NEGATIVE [facility] Comment on above: Performed By: #### 1 [id number], [id number] #### [facility] (DEFAULT) [address] [place] [address]74 UA pH 6.0 Normal 5-8 [facility] Comment on above: Performed By: #### 1 [id number], [id number] #### [facility] (DEFAULT) [address] [place] [address]447 UA Protein Negative Normal [facility] Comment on above: Performed By: #### 1 [id number], [id number] #### [facility] (DEFAULT) [address] [place] [address] UA Spec Grav 1.020 Normal 1.001-1.[address] [place] [address] Comment on above: Performed By: #### 1 [id number], [id number] #### [facility] (DEFAULT) [address] [place] [address] UA Urobilinogen 0.2 mg/dL Normal 0.2-1.0 [facility] Comment on above: Performed By: #### 1 [id number], [id number] #### [facility] (DEFAULT) [address] [place] [address] Urine Source Clean Catch Normal [facility] Comment on above: Performed By: #### 1 [id number], [id number] #### [facility] (DEFAULT) [address] [place] [address] Urine Reflex to CultureOrder ed By: Rickey Davis on 07-14-2019 Bilirubin Urine Negative Negative [facility] Work Phone: Blood, Urine LARGE Abnormal Negative [employer] Work Phone: Clarity, UA CLOUDY Abnormal Clear [employer] Work Phone: Color, UA Yellow Straw/Clay ow [employer] Work Phone: Glucose, Ur >=1000 Abnormal Negative mg/dL [employer] Work Phone: Interpretation and review of laboratory results Abnormal [employer] Work Phone: Ketones Ql (U) Negative Negative mg/dL [facility] Work Phone: Leukocyte esterase Test strip Ql (U) MODERATE Abnormal Negative [employer] Phone: Nitrite, Urine Negative Negative [employer] [facility] Work Phone: pH, UA 5.0 [facility] Work Phone: Protein, UA Negative Negative mg/dL [employer] Work Phone: Specific [place], UA 1.021 [employer] Work Phone: Urine Reflex to Culture YES [employer] Work Phone: Urobilinogen, Urine 0.2 <2.0 E.U./dL [employer]2 Phone: XR Abdomen Single View (KUB) on 07-14-2019 XR Abdomen Single View (KUB) XR ABDOMEN, 1 VIEW ([id number]) CLINICAL HISTORY: Kidney stone right? COMPARISON: No relevant prior studies available. FINDINGS: LOWER THORAX: LUNG BASES: Visualized portions of the lung bases demonstrate NO consolidations. GASTROINTESTINAL TRACT: STOMACH: The stomach is not significantly distended. SMALL BOWEL: There are no significantly distended small bowel loops. COLON: NO abnormally distended colon demonstrated. Partially fecal filled colon. NO significant distention. BONES/JOINTS: NO definite fracture or dislocation. SOFT TISSUES: Surgical clips are present in the RIGHT upper quadrant. VASCULATURE: Findings suggest pelvic calcifications most consistent with phleboliths. IMPRESSION: - Findings suggest pelvic calcifications most consistent with phleboliths. If further evaluation is felt to be indicated, follow-up should be considered with CT. - NO acute changes are demonstrated. Chronic changes as described. Final Dictated by: Casper West V Dictated DT/TM: 07/14/19 9:53 Signed (Electronic Signature): Casper West V 07/14/19 9:54 pm Technologist: LATASHA [facility] CBCOrdered By: Gely michael on 07-09-2019 Erythrocyte distribution width (RBC) [Ratio] 15.1 % High 11.5 - 14.5 % [employer] Phone: Hematocrit (Bld) [Volume fraction] 40.9 % 37 - 47 % [employer] Phone: Hemoglobin (Bld) [Mass/Vol] 13.9 g/dL 12 - 16 g/dL [employer] Phone: Interpretation and review of laboratory results Abnormal [employer] Phone: MCH (RBC) [Entitic mass] 27.0 pg 27 - 31.3 pg L[employer] Phone: MCHC 34.0 % 33 - 37 % [employer] Phone: MCV (RBC) [Entitic vol] 79.3 fL Low 82 - 100 fL L[employer] Phone: Platelets (Bld) [#/Vol] 258 10*3/uL 130 - 400 K/uL L2 Phone: RBC (Bld) [#/Vol] 5.15 10*6/uL L2 Phone: WBC (Bld) [#/Vol] 8.8 10*3/uL 4.8 - 10.8 K/uL L2 Phone: CT ABDOMEN PELVIS WO CONTRAS T Additional Contrast? NoneOrdered By: Gely Marshall on 07-09-2019 1. AGAIN NOTE IS MAD E OF A LESS THAN 2 MM NONOBSTRUCTING RIGHT RENAL CALCULI. All CT scans at this facility use dose modulation, iterative reconstruction, and/or weight based dosing when appropriate to reduce radiation dose to as low as reasonably achievable. L2 Phone: Examination: CT ABDO MEN PELVIS WO CONTRAST Indication: Right flank pain Technique: Multiple serial axial images was performed through the abdomen and pelvis without intravenous or oral administration of contrast. Images were reconstructed in the axial and coronal and sagittal planes. Comparison: June 08, 2019. Findings: The visualized basal lungs show no focal parenchymal abnormalities. The liver, spleen, pancreas, adrenals, are unremarkable. The gallbladder surgically absent. The right kidney shows no significant perinephric stranding. Again note is made of a less than 2 mm calculi at the mid pole. Unchanged. No hydronephrosis or hydroureter. Incidental note is made of a calcination subjacent to the IVC likely vascular calcification best seen on coronal reconstructions. Unchanged since prior studies. The left kidney shows no significant perinephric stranding. No nephrolithiasis. No hydronephrosis hydroureter. No bladder calculi Large and small bowel show no sign of obstruction. The appendix is visualized. No periappendiceal stranding. No diverticulitis. Uterus is surgically absent. No free air. No free fluid. The visualized abdominal aorta is of normal size and caliber. No significant retroperitoneal adenopathy. Visualized osseous structures are grossly unremarkable. L2 Phone: [facility] Incoming Radiant Results From [employer] - 07/09/2019 8:08 PM EST Examination: CT ABDOMEN PELVIS WO CONTRAST Indication: Right flank pain Technique: Multiple serial axial images was performed through the abdomen and pelvis without intravenous or oral administration of contrast. Images were reconstructed in the axial and coronal and sagittal planes. Comparison: June 08, 2019. Findings: The visualized basal lungs show no focal parenchymal abnormalities. The liver, spleen, pancreas, adrenals, are unremarkable. The gallbladder surgically absent. The right kidney shows no significant perinephric stranding. Again note is made of a less than 2 mm calculi at the mid pole. Unchanged. No hydronephrosis or hydroureter. Incidental note is made of a calcination subjacent to the IVC likely vascular calcification best seen on coronal reconstructions. Unchanged since prior studies. The left kidney shows no significant perinephric stranding. No nephrolithiasis. No hydronephrosis hydroureter. No bladder calculi Large and small bowel show no sign of obstruction. The appendix is visualized. No periappendiceal stranding. No diverticulitis. Uterus is surgically absent. No free air. No free fluid. The visualized abdominal aorta is of normal size and caliber. No significant retroperitoneal adenopathy. Visualized osseous structures are grossly unremarkable. IMPRESSION: 1. AGAIN NOTE IS MADE OF A LESS THAN 2 MM NONOBSTRUCTING RIGHT RENAL CALCULI. All CT scans at this facility use dose modulation, iterative reconstruction, and/or weight based dosing when appropriate to reduce radiation dose to as low as reasonably achievable. L2 Phone: Comprehensive Metabolic Pane lOrdered By: Gely Marshall on 07-09-2019 Albumin [Mass/Vol] 4.4 g/dL 3.5 - 4.6 g/dL L2 Phone: ALP [Catalytic activity/Vol] 96 U/L 40 - 130 U/L [facility]: ALT [Catalytic activity/Vol] 12 U/L 0 - 33 U/L [facility] Phone: Anion gap [Moles/Vol] 16 mmol/L High [facility] [employer] Work Phone: AST [Catalytic activity/Vol] 14 U/L 0 - 35 U/L [facility] Phone: Bilirubin [Mass/Vol] 0.3 mg/dL 0.2 - 0 .7 mg/dL [facility] Phone: Calcium [Mass/Vol] 10.3 mg/dL High 8.5 - 9.9 mg/dL [facility] Phone: Chloride [Moles/Vol] 97 mmol/L [employer] Phone: CO2 [Moles/Vol] 24 mmol/L [facility] Work Phone: Creatinine [Mass/Vol] 0.54 mg/dL 0.5 - 0.9 mg/dL L2 Phone: GFR >60.0 >60 [employer] Phone: Comment on above: >60 mL/min/1.73m2 EG FR, calc. for ages 18 and older using the MDRD formula (not corrected for weight), is valid for stable renal function. GFR Non- >60.0 >60 [employer] Work Phone: Comment on above: >60 mL/min/1.73m2 EG FR, calc. for ages 18 and older using the MDRD formula (not corrected for weight), is valid for stable renal function. Globulin (S) [Mass/Vol] 3.8 g/dL High 2.3 - 3.5 g/dL [facility] Phone: Glucose [Mass/Vol] 242 mg/dL High 70 - 99 mg/dL [facility] Phone: Interpretation and review of laboratory results Abnormal [facility] Work Phone: Potassium [Moles/Vol] 3.8 mmol/L [facility] [employer] Phone: Protein [Mass/Vol] 8.2 g/dL High 6.3 - 8 g/dL [facility] Phone: Sodium [Moles/Vol] 137 mmol/L [facility] Phone: Urea nitrogen [Mass/Vol] 11 mg/dL 6 - 20 mg/dL [facility] Phone: UrinalysisOrdered By: Roberto Marshall on 07-09-2019 Bilirubin Urine Negative Negative [employer] [facility] Work Phone: Blood, Urine LARGE Abnormal Negative [facility] Work Phone: Clarity, UA CLOUDY Abnormal Clear [facility] Work Phone: Color, UA ORANGE Abnormal Straw/Clay ow [employer] Work Phone: Glucose, Ur >=1000 Abnormal Negative mg/dL [facility] [employer] Phone: Interpretation and review of laboratory results Abnormal [facility] Work Phone: Ketones Ql (U) Negative Negative mg/dL [facility] Phone: Leukocyte esterase Test strip Ql (U) MODERATE Abnormal Negative [facility] [employer] Phone: Nitrite, Urine Negative Negative [facility] Work Phone: pH, UA 6.5 [facility] Work Phone: Protein, UA Negative Negative mg/dL [facility] [employer] Phone: Specific [place], UA 1.031 [facility] [employer] Phone: Urobilinogen, Urine 0.2 <2.0 E.U./dL [facility] Phone: Amylaseon 04-26-2019 Amylase [Catalytic activity/Vol] 74 U/L 22 - 93 U/L [place] CBC Auto Differentialon 03-30 Basophils (Bld) [#/Vol] 0.1 10*3/uL 0 - 0.2 K/uL [place] Basophils/100 WBC (Bld) 0.7 % [place] Eosinophils (Bld) [#/Vol] 0.1 10*3/uL 0 - 0.7 K/uL [place] Eosinophils/100 WBC (Bld) 0.7 % [place] Erythrocyte distribution width (RBC) [Ratio] 14.8 % High 11.5 - 14.5 % [place] Hematocrit (Bld) [Volume fraction] 42.4 % 37 - 47 % [place] Hemoglobin (Bld) [Mass/Vol] 14.1 g/dL 12 - 16 g/dL [place] Interpretation and review of laboratory results Abnormal [place] Lymphocytes (Bld) [#/Vol] 1.6 10*3/uL 1 - 4.8 K/uL [place] Lymphocytes/100 WBC (Bld) 17.3 % [place] MCH (RBC) [Entitic mass] 27.0 pg 27 - 31.3 pg [place] MCHC (RBC) [Mass/Vol] 33.2 % 33 - 37 % [place] MCV (RBC) [Entitic vol] 81.4 fL Low 82 - 100 fL [place] Monocytes (Bld) [#/Vol] 0.5 10*3/uL 0.2 - 0.8 K/uL [place] Monocytes/100 WBC (Bld) 5.7 % [place] Neutrophils Absolute 6.9 K/uL High 1.4 - 6 .5 K/uL [place] Neutrophils/100 WBC (Bld) 75.6 % [place] Platelets (Bld) [#/Vol] 328 10*3/uL 130 - 400 K/uL [place] RBC (Bld) [#/Vol] 5.21 10*6/uL [place] WBC (Bld) [#/Vol] 9.2 10*3/uL 4.8 - 10.8 K/uL [place] Lactic Acid, Plasmaon 2018 Lactate [Moles/Vol] 1.9 mmol/L 0.5 - 2. 2 mmol/L [place] Lipaseon 04-26-2019 Lipase [Catalytic activity/Vol] 18 U/L 12 - 95 U/L [place] Microscopic Urinalysison Bacteria, UA Few /HPF [place] Crystals LM Nom (Urine sed) 2+ Ca. Oxalate [place] Epi Cells 20-50 /HPF [place] RBC (U) [#/Vol] 0-2 [place] WBC, UA 3-5 [place] Urinalysison 04-26-2019 Bilirubin Urine MODERATE Abnormal Negative [place] Blood, Urine SMALL Abnormal Negative [place] Clarity, UA CLOUDY Abnormal Clear [place] Color, UA DARK YELLOW Abnormal Straw/Clay ow [place] Glucose, Ur 500 mg/dL Abnormal Negative [place] Interpretation and review of laboratory results Abnormal [place] Ketones Ql (U) 15 mg/dL Abnormal Negative [place] Leukocyte esterase Test strip Ql (U) SMALL Abnormal Negative [place] Nitrite, Urine Positive Abnormal Negative [place] pH, UA 5.0 [place] Protein (U) [Mass/Vol] 30 mg/dL Abnormal Negative [place] Specific [place], UA 1.039 [place] Urobilinogen, Urine 1.0 <2.0 E.U./dL [place] POCT Glucoseon 04-22-2019 Glucose [Mass/Vol] 259 mg/dL High 60 - 115 mg/dl [place] Interpretation and review of laboratory results Abnormal [place] Performed on ACCU-CHEK [place] CBC Auto Differentialon 03-30 Basophils (Bld) [#/Vol] 0.0 10*3/uL 0 - 0.2 K/uL [place] Basophils/100 WBC (Bld) 0.8 % [place] Eosinophils (Bld) [#/Vol] 0.2 10*3/uL 0 - 0.7 K/uL [place] Eosinophils/100 WBC (Bld) 3.2 % [place] Erythrocyte distribution width (RBC) [Ratio] 15.0 % High 11.5 - 14.5 % [place] Hematocrit (Bld) [Volume fraction] 37.1 % 37 - 47 % [place] Hemoglobin (Bld) [Mass/Vol] 12.3 g/dL 12 - 16 g/dL [place] Lymphocytes (Bld) [#/Vol] 1.3 10*3/uL 1 - 4.8 K/uL [place] Lymphocytes/100 WBC (Bld) 25.6 % [place] MCH (RBC) [Entitic mass] 26.9 pg Low 27 - 31.3 pg [place] MCHC (RBC) [Mass/Vol] 33.3 % 33 - 37 % [place] MCV (RBC) [Entitic vol] 81.0 fL Low 82 - 100 fL [place] Monocytes (Bld) [#/Vol] 0.5 10*3/uL 0.2 - 0.8 K/uL [place] Monocytes/100 WBC (Bld) 8.6 % [place] Neutrophils Absolute 3.2 K/uL 1.4 - 6 .5 K/uL [place] Neutrophils/100 WBC (Bld) 61.8 % [place] Platelets (Bld) [#/Vol] 235 10*3/uL 130 - 400 K/uL [place] RBC (Bld) [#/Vol] 4.58 10*6/uL [place] WBC (Bld) [#/Vol] 5.2 10*3/uL 4.8 - 10.8 K/uL [place] Redraw [place] ABDOMEN PELVIS W WO CONTR AST Additional Contrast? Radiologist Recommendationon 04-21-2019 Hemant, [facility] Incoming Radiant Results From [employer] - 04/21/2019 4:40 PM EDT Patient : 1975 Age: 43 years Order Date: 04/21/2019 3:00 PM. Gender: Female Exam: CT ABDOMEN PELVIS W WO CONTRAST Number of Images: [id number] Indication: Urinary tract infection, kidney stones, evaluate kidneys right flank pain. Contrast dosage: Isovue-300, 100 mL, IV Comparison: CT abdomen and pelvis 04/17/2019, CT kidneys 03/20/2019. Findings: This examination was performed on a CT scanner with dose reduction. Technique: Low-dose CT acquisition technique included one of following options; 1 . Automated exposure control, 2. Adjustment of MA and or KV according to patient's size or 3. Use of iterative reconstruction. Scarring/linear atelectasis left lower lobe and lingula. No discrete noncalcified pulmonary nodule, spiculated mass, infiltrate/pneumonia, pleural effusion or pneumothorax identified. Heart, esophagus, stomach, spleen, duodenum, pancreas, pancreatic duct, adrenals, left kidney, right kidney, appendix, bladder, are unremarkable. Previous hysterectomy. Previous cholecystectomy. Visualized colon demonstrates scattered areas of fecal retention within this otherwise unremarkable without evidence of obstruction or mass. No abnormally dilated loops of small or large bowel to suggest bowel obstruction. No free intraperitoneal air. Vertebral body heights and intervertebral disc spaces are well-preserved. There is normal sagittal alignment of the visualized spine. No lytic or blastic bony lesions.. No abnormally enlarged lymphadenopathy by CT size criteria. Noncontrasted imaging demonstrates right renal calculus measuring approximately 0.35 cm. No right or left ureterolithiasis. No hydroureter. No bladder calculi. Vascular calcifications right ovarian vein. Vascular calcifications left ovarian vein. Delayed imaging sequence seen demonstrating no evidence of papillary necrosis. No filling defects involving the right or left intrinsic renal collecting systems are the opacified portions of the ureter. Scattered areas of the ureters are not opacified, a nonspecific finding. No filling defects within the bladder. Postcontrast imaging demonstrates no evidence of an enhancing mass or malignancy involving the kidneys. No areas of pyelonephritis are identified. No portal vein, venous confluence, superior mesenteric vein or splenic vein thrombus or occlusion. IMPRESSION: 1. Nonobstructing right renal calculus measuring 0.35 cm. No enhancing mass, malignancy or CT evidence of pyelonephritis. 2. Bilateral ovarian vein calcifications. Scarring/linear atelectasis left lower lobe and lingula. 3. Previous hysterectomy. Previous cholecystectomy. [place] 1. Nonobstructing ri ght renal calculus measuring 0.35 cm. No enhancing mass, malignancy or CT evidence of pyelonephritis. 2. Bilateral ovarian vein calcifications. Scarring/linear atelectasis left lower lobe and lingula. 3. Previous hysterectomy. Previous cholecystectomy. [place] Patient 5 : 1975 Age: 43 years Order Date: 04/21/2019 3:00 PM. Gender: Female Exam: CT ABDOMEN PELVIS W WO CONTRAST Number of Images: [id number] Indication: Urinary tract infection, kidney stones, evaluate kidneys right flank pain. Contrast dosage: Isovue-300, 100 mL, IV Comparison: CT abdomen and pelvis 04/17/2019, CT kidneys 03/20/2019. Findings: This examination was performed on a CT scanner with dose reduction. Technique: Low-dose CT acquisition technique included one of following options; 1 . Automated exposure control, 2. Adjustment of MA and or KV according to patient's size or 3. Use of iterative reconstruction. Scarring/linear atelectasis left lower lobe and lingula. No discrete noncalcified pulmonary nodule, spiculated mass, infiltrate/pneumonia, pleural effusion or pneumothorax identified. Heart, esophagus, stomach, spleen, duodenum, pancreas, pancreatic duct, adrenals, left kidney, right kidney, appendix, bladder, are unremarkable. Previous hysterectomy. Previous cholecystectomy. Visualized colon demonstrates scattered areas of fecal retention within this otherwise unremarkable without evidence of obstruction or mass. No abnormally dilated loops of small or large bowel to suggest bowel obstruction. No free intraperitoneal air. Vertebral body heights and intervertebral disc spaces are well-preserved. There is normal sagittal alignment of the visualized spine. No lytic or blastic bony lesions.. No abnormally enlarged lymphadenopathy by CT size criteria. Noncontrasted imaging demonstrates right renal calculus measuring approximately 0.35 cm. No right or left ureterolithiasis. No hydroureter. No bladder calculi. Vascular calcifications right ovarian vein. Vascular calcifications left ovarian vein. Delayed imaging sequence seen demonstrating no evidence of papillary necrosis. No filling defects involving the right or left intrinsic renal collecting systems are the opacified portions of the ureter. Scattered areas of the ureters are not opacified, a nonspecific finding. No filling defects within the bladder. Postcontrast imaging demonstrates no evidence of an enhancing mass or malignancy involving the kidneys. No areas of pyelonephritis are identified. No portal vein, venous confluence, superior mesenteric vein or splenic vein thrombus or occlusion. [place] Comprehensive Metabolic Pane ben 04-21-2019 Albumin [Mass/Vol] 3.8 g/dL 3.5 - 4.6 g/dL [place] ALP [Catalytic activity/Vol] 72 U/L 40 - 130 U/L [place] ALT [Catalytic activity/Vol] 21 U/L 0 - 33 U/L [place] Anion gap [Moles/Vol] 14 mmol/L [place] AST [Catalytic activity/Vol] 26 U/L 0 - 35 U/L [place] Comment on above: Specimen hemolysis h as exceeded the interference as defined by Mariah. Value may be falsely increased. Suggest recollection if clinically indicated. Bilirubin Ql (U) 0.3 mg/dL 0.2 - 0.7 mg/dL [place] Calcium [Mass/Vol] 8.6 mg/dL 8.5 - 9.9 mg/dL [place] Chloride [Moles/Vol] 100 mmol/L [place] CO2 [Moles/Vol] 19 mmol/L Low [facility] [place] Creatinine [Mass/Vol] 0.5 mg/dL 0.5 - 0.9 mg/dL [place] GFR >60.0 >60 [place] Comment on above: >60 mL/min/1.73m2 EG FR, calc. for ages 18 and older using the MDRD formula (not corrected for weight), is valid for stable renal function. GFR Non- >60.0 >60 [place] Comment on above: >60 mL/min/1.73m2 EG FR, calc. for ages 18 and older using the MDRD formula (not corrected for weight), is valid for stable renal function. Globulin (S) [Mass/Vol] 3.1 g/dL 2.3 - 3.5 g/dL [place] Glucose [Mass/Vol] 316 mg/dL High 70 - 99 mg/dL [place] Interpretation and review of laboratory results Abnormal [place] Potassium [Moles/Vol] 4.6 mmol/L [place] Protein [Mass/Vol] 6.9 g/dL 6.3 - 8 g/dL [place] Sodium [Moles/Vol] 133 mmol/L [place] Urea nitrogen [Mass/Vol] 8 mg/dL 6 - 20 mg/dL [place] Otheron 04-21-2019 Interpretation and review of laboratory results Abnormal [place] POCT Glucoseon 04-21-2019 Glucose [Mass/Vol] 301 mg/dL High 60 - 115 mg/dl [place] Interpretation and review of laboratory results Abnormal [place] Performed on ACCU-CHEK [place] Glucose [Mass/Vol] 240 mg/dL High 60 - 115 mg/dl [place] Interpretation and review of laboratory results Abnormal [place] [facility] Glucose [Mass/Vol] 283 mg/dL High 60 - 115 mg/dl [place] [facility] Glucose [Mass/Vol] 334 mg/dL High 60 - 115 mg/dl [place] Interpretation and review of laboratory results Abnormal [place] [facility] SPECIMEN REJECTIONon 019 Reason for Rejection see below [place], [place] Comment on above: Unable to perform te sting; specimen clotted. To perform testing the specimen will need to be recollected. Clotted Rejected Test CBCWD [place] URINE CULTUREon 04-21-2019 Bacteria identified Cx Nom (U) No growth 24 hours [place], [place] OR DERED BY: CRISTI MCDANIELS SOURCE: Urine Clean Catch COLLECTED: 04/19/19 23:00 ANTIBIOTICS AT [facility].: RECEIVED : 04/20/19 08:15 [place] Microscopic Urinalysison Bacteria, UA Negative /HPF [place] Epi Cells 3-5 [place] Hyaline Casts, UA 1-3 [place] Interpretation and review of laboratory results Abnormal [place] RBC (U) [#/Vol] /uL [place] WBC, UA 0-2 [place] POCT Glucoseon 04-20-2019 Glucose [Mass/Vol] 284 mg/dL High 60 - 115 mg/dl [place] Interpretation and review of laboratory results Abnormal [place] [facility] Glucose [Mass/Vol] 258 mg/dL High 60 - 115 mg/dl [place] Interpretation and review of laboratory results Abnormal [place]formed [place] [facility] Glucose [Mass/Vol] 233 mg/dL High 60 - 115 mg/dl [place] Interpretation and review of laboratory results Abnormal [place] Performed on [facility] [place] Glucose [Mass/Vol] 238 mg/dL High 60 - 115 mg/dl [place] Interpretation and review of laboratory results Abnormal [place] Performed on ACCU-CHEK [place] Urinalysison 04-20-2019 Bilirubin Urine Negative Negative [place] Blood, Urine LARGE Abnormal Negative [place] Clarity, UA Clear Clear [place] Color, UA Yellow Straw/Clay ow [place] Glucose, Ur >=1000 Abnormal Negative mg/dL [place] Interpretation and review of laboratory results Abnormal [place] Ketones Ql (U) Negative Negative mg/dL [place] Leukocyte esterase Test strip Ql (U) Negative Negative [place] Nitrite, Urine Negative Negative [place] pH, UA 5.5 [place] Protein (U) [Mass/Vol] Negative Negat isabella mg/dL [place] Specific [place], UA 1.033 [place] Urobilinogen, Urine 0.2 <2.0 E.U./dL [place] POCT Glucoseon 04-19-2019 Glucose [Mass/Vol] 292 mg/dL High 60 - 115 mg/dl [place] Interpretation and review of laboratory results Abnormal [place] [facility] Glucose [Mass/Vol] 238 mg/dL High 60 - 115 mg/dl [place] Interpretation and review of laboratory results Abnormal [place] [facility] Glucose [Mass/Vol] 234 mg/dL High 60 - 115 mg/dl [place] Interpretation and review of laboratory results Abnormal [place] Performed on [facility] [place] Glucose [Mass/Vol] 203 mg/dL High 60 - 115 mg/dl [place] Interpretation and review of laboratory results Abnormal [place] Performed on ACCU-CHEK [place] Urine Cultureon 04-19-2019 Bacteria identified Cx Nom (U) <50,000 CFU/ml of mixed lucia Multiple organisms isolated, no predominance. Culture indicates probable contamination. Please review colony count and clinical indications to determine if a repeat culture is necessary. No further workup to be done. [place] OR DERED BY: JANETH EDOUARD SOURCE: Urine Clean Catch COLLECTED: 04/17/19 21:00 ANTIBIOTICS AT [facility].: RECEIVED : 04/17/19 22:24 [place] CBC auto differentialon 03-30 Basophils (Bld) [#/Vol] 0.0 10*3/uL 0 - 0.2 K/uL [place] Basophils/100 WBC (Bld) 0.5 % [place] Eosinophils (Bld) [#/Vol] 0.2 10*3/uL 0 - 0.7 K/uL [place] Eosinophils/100 WBC (Bld) 2.8 % [place] Erythrocyte distribution width (RBC) [Ratio] 15.4 % High 11.5 - 14.5 % [place] Hematocrit (Bld) [Volume fraction] 39.3 % 37 - 47 % [place] Hemoglobin (Bld) [Mass/Vol] 12.2 g/dL 12 - 16 g/dL [place] Interpretation and review of laboratory results Abnormal [place] Lymphocytes (Bld) [#/Vol] 2.7 10*3/uL 1 - 4.8 K/uL [place] Lymphocytes/100 WBC (Bld) 38.1 % [place] MCH (RBC) [Entitic mass] 26.8 pg Low 27 - 31.3 pg [place] MCHC (RBC) [Mass/Vol] 30.9 % Low 33 - 37 % [place] MCV (RBC) [Entitic vol] 86.8 fL 82 - 100 fL [place] Monocytes (Bld) [#/Vol] 0.6 10*3/uL 0.2 - 0.8 K/uL [place] Monocytes/100 WBC (Bld) 8.3 % [place] Neutrophils Absolute 3.5 K/uL 1.4 - 6 .5 K/uL [place] Neutrophils/100 WBC (Bld) 50.3 % [place] Platelets (Bld) [#/Vol] 253 10*3/uL 130 - 400 K/uL [place] RBC (Bld) [#/Vol] 4.53 10*6/uL [place] WBC (Bld) [#/Vol] 7.1 10*3/uL 4.8 - 10.8 K/uL [place] ABDOMEN PELVIS WO CONTRAS T Additional Contrast? Noneon 04-18-2019 EXAMINATION: CT ABDO MEN PELVIS WO CONTRAST CLINICAL HISTORY: Flank pain COMPARISONS: March 20, 2019 TECHNIQUE: Spiral axial images of the pelvis were obtained without contrast enhancement. Multiplanar two-dimensional reformatting was completed at CT console. Comparison to prior examination. FINDINGS: Overall size position and contour of the kidneys is unremarkable. Both kidneys are somewhat lobulated. This is a variation of normal anatomy. There is no hydronephrosis. There is punctate medullary calcification near the upper pole of the right kidney. There are no calculi within the collecting system of either kidney. Incidentally noted is a small phlebolith in the right ovarian vein near its confluence with the inferior vena cava. Urinary bladder is nearly empty and unremarkable. The uterus and adnexa are absent. There is no postobstructive perinephric stranding. There is no sign of an abscess or mass associated with the tract. The liver is unremarkable. Bile ducts are not dilated. The gallbladder is surgically absent. There is a cholecystectomy romie. The pancreas is unremarkable. The spleen is unremarkable. Adrenal glands are normal. The abdominal aorta and inferior vena cava. The stomach, small bowel and colon are unremarkable. The appendix contains a small amount of high density material, new since March 20, 2009. This could represent a small amount of inspissated oral contrast. There is no sign of acute appendicitis. There is no evidence of colitis. There is no diverticulitis. The abdominal wall is intact. The lumbar spine is unremarkable. The lung bases are unremarkable. [place] Hemant, [facility] Incoming Radiant Results From [employer] - 04/18/2019 10:42 AM EDT EXAMINATION: CT ABDOMEN PELVIS WO CONTRAST CLINICAL HISTORY: Flank pain COMPARISONS: March 20, 2019 TECHNIQUE: Spiral axial images of the pelvis were obtained without contrast enhancement. Multiplanar two-dimensional reformatting was completed at CT console. Comparison to prior examination. FINDINGS: Overall size position and contour of the kidneys is unremarkable. Both kidneys are somewhat lobulated. This is a variation of normal anatomy. There is no hydronephrosis. There is punctate medullary calcification near the upper pole of the right kidney. There are no calculi within the collecting system of either kidney. Incidentally noted is a small phlebolith in the right ovarian vein near its confluence with the inferior vena cava. Urinary bladder is nearly empty and unremarkable. The uterus and adnexa are absent. There is no postobstructive perinephric stranding. There is no sign of an abscess or mass associated with the tract. The liver is unremarkable. Bile ducts are not dilated. The gallbladder is surgically absent. There is a cholecystectomy romie. The pancreas is unremarkable. The spleen is unremarkable. Adrenal glands are normal. The abdominal aorta and inferior vena cava. The stomach, small bowel and colon are unremarkable. The appendix contains a small amount of high density material, new since March 20, 2009. This could represent a small amount of inspissated oral contrast. There is no sign of acute appendicitis. There is no evidence of colitis. There is no diverticulitis. The abdominal wall is intact. The lumbar spine is unremarkable. The lung bases are unremarkable. IMPRESSION: NO ACUTE PROCESS COMPARED TO 2018. All CT scans at this facility use dose modulation, iterative reconstruction, and/or weight based dosing when appropriate to reduce radiation dose to as low as reasonably achievable. [place] NO ACUTE PROCESS COM PARED TO 2018. All CT scans at this facility use dose modulation, iterative reconstruction, and/or weight based dosing when appropriate to reduce radiation dose to as low as reasonably achievable. [place] Comprehensive Metabolic Pane l w/ Reflex to MGon 04-18-2019 Albumin [Mass/Vol] 3.9 g/dL 3.5 - 4.6 g/dL [place] ALP [Catalytic activity/Vol] 66 U/L 40 - 130 U/L [place] ALT [Catalytic activity/Vol] 17 U/L 0 - 33 U/L [place] Anion gap [Moles/Vol] 14 mmol/L [place] AST [Catalytic activity/Vol] 23 U/L 0 - 35 U/L [place] Bilirubin Ql (U) 0.4 mg/dL 0.2 - 0.7 mg/dL [place] Calcium [Mass/Vol] 8.7 mg/dL 8.5 - 9.9 mg/dL [place] Chloride [Moles/Vol] 103 mmol/L [place] CO2 [Moles/Vol] 22 mmol/L [place] Creatinine [Mass/Vol] 0.57 mg/dL 0.5 - 0.9 mg/dL [place] GFR >60.0 >60 [place] Comment on above: >60 mL/min/1.73m2 EG FR, calc. for ages 18 and older using the MDRD formula (not corrected for weight), is valid for stable renal function. GFR Non- >60.0 >60 [place] Comment on above: >60 mL/min/1.73m2 EG FR, calc. for ages 18 and older using the MDRD formula (not corrected for weight), is valid for stable renal function. Globulin (S) [Mass/Vol] 3 g/dL 2.3 - 3.5 g/dL [place] Glucose [Mass/Vol] 204 mg/dL High 70 - 99 mg/dL [place] Interpretation and review of laboratory results Abnormal [place] Potassium [Moles/Vol] 3.8 mmol/L [place] Protein [Mass/Vol] 6.9 g/dL 6.3 - 8 g/dL [place] Sodium [Moles/Vol] 139 mmol/L [place] Urea nitrogen [Mass/Vol] 20 mg/dL 6 - 20 mg/dL [place] Hemoglobin A1Con 04-18-2019 HbA1c (Bld) [Mass fraction] 9.7 % High 4.8 - 5.9 % [place] Interpretation and review of laboratory results Abnormal [place] Lactic Acid, Plasmaon 2018 Lactate [Moles/Vol] 1.2 mmol/L 0.5 - 2. 2 mmol/L [place] Magnesiumon 04-18-2019 Magnesium [Mass/Vol] 1.8 mg/dL 1.7 - 2 .4 mg/dL [place] POCT Glucoseon 04-18-2019 Glucose [Mass/Vol] 268 mg/dL High 60 - 115 mg/dl [place] Interpretation and review of laboratory results Abnormal [place] Performed on ACCU-CHEK [place] Glucose [Mass/Vol] 262 mg/dL High 60 - 115 mg/dl [place] Interpretation and review of laboratory results Abnormal [place] Performed on ACCU-CHEK [place] Glucose [Mass/Vol] 180 mg/dL High 60 - 115 mg/dl [place] Interpretation and review of laboratory results Abnormal [place] Performed on ACCU-CHEK [place] Glucose [Mass/Vol] 144 mg/dL High 60 - 115 mg/dl [place] Interpretation and review of laboratory results Abnormal [place] Performed on ACCU-CHEK [place] SPECIMEN REJECTIONon 019 HbA1c (Bld) [Mass fraction] A1C [place] Reason for Rejection see below [place], [place] Comment on above: Unable to perform te sting; specimen quantity not sufficient. To perform testing the specimen will need to be recollected. QNS ORDER WAS CANCELLED 04/18/2019 12:05, Rejected: Quantity not sufficient. [place] Basic Metabolic Panelon 03-30 Anion gap [Moles/Vol] 17 mmol/L [place] Calcium [Mass/Vol] 10.6 mg/dL High 8.5 - 9.9 mg/dL [place] Chloride [Moles/Vol] 100 mmol/L [place] CO2 [Moles/Vol] 22 [facility] [place] Creatinine [Mass/Vol] 0.69 mg/dL 0.5 - 0.9 mg/dL [place] GFR >60.0 >60 [place], [place] Comment on above: >60 mL/min/1.73m2 EG FR, calc. for ages 18 and older using the MDRD formula (not corrected for weight), is valid for stable renal function. GFR Non- >60.0 >60 [place] Comment on above: >60 mL/min/1.73m2 EG FR, calc. for ages 18 and older using the MDRD formula (not corrected for weight), is valid for stable renal function. Glucose [Mass/Vol] 226 mg/dL High 70 - 99 mg/dL [place] Potassium [Moles/Vol] 3.9 mmol/L [place] Sodium [Moles/Vol] 139 mmol/L [place], [place] Urea nitrogen [Mass/Vol] 20 mg/dL 6 - 20 mg/dL [place] CBC Auto Differentialon 10-2 0-2019 Basophils (Bld) [#/Vol] 0.1 10*3/uL 0 - 0.2 K/uL [place] Basophils/100 WBC (Bld) 1.1 % [place] Eosinophils (Bld) [#/Vol] 0.1 10*3/uL 0 - 0.7 K/uL [place] Eosinophils/100 WBC (Bld) 1 % [place] Erythrocyte distribution width (RBC) [Ratio] 14.9 % High 11.5 - 14.5 % [place] Hematocrit (Bld) [Volume fraction] 40.6 % 37 - 47 % [place] Hemoglobin (Bld) [Mass/Vol] 13.7 g/dL 12 - 16 g/dL [place] Interpretation and review of laboratory results Abnormal [place] Lymphocytes (Bld) [#/Vol] 2.7 10*3/uL 1 - 4.8 K/uL [place] Lymphocytes/100 WBC (Bld) 24.8 % [place] MCH (RBC) [Entitic mass] 26.9 pg Low 27 - 31.3 pg [place] MCHC (RBC) [Mass/Vol] 33.7 % 33 - 37 % [place] MCV (RBC) [Entitic vol] 79.8 fL Low 82 - 100 fL [place], [place] Monocytes (Bld) [#/Vol] 0.8 10*3/uL 0.2 - 0.8 K/uL [place] Monocytes/100 WBC (Bld) 7.0 % [place] Neutrophils Absolute 7.1 K/uL High 1.4 - 6 .5 K/uL [place] Neutrophils/100 WBC (Bld) 66.1 % [place] Platelets (Bld) [#/Vol] 312 10*3/uL 130 - 400 K/uL [place] RBC (Bld) [#/Vol] 5.09 10*6/uL [place] WBC (Bld) [#/Vol] 10.8 10*3/uL 4.8 - 10.8 K/uL [place] Hepatic Function Panelon Albumin [Mass/Vol] 4.8 g/dL High 3.5 - 4.6 g/dL [place] ALP [Catalytic activity/Vol] 77 U/L 40 - 130 U/L [place] ALT [Catalytic activity/Vol] 21 U/L 0 - 33 U/L [place] AST [Catalytic activity/Vol] 22 U/L 0 - 35 U/L [place] Bilirubin Ql (U) 0.3 mg/dL 0.2 - 0.7 mg/dL [place] Bilirubin, Indirect see below 0 - 0.6 mg/dL [place], [place] Comment on above: Indirect Bilirubin c annot be calculated since Total Bilirubin and/or Direct Bilirubin is below measurable range. Bilirubin.direct [Mass/Vol] mg/dL 0 - 0.4 mg/dL [place] Comment on above: Specimen hemolysis h as exceeded the interference as defined by Mariah. Value may be falsely increased. Suggest recollection if clinically indicated. Protein [Mass/Vol] 8.5 g/dL High 6.3 - 8 g/dL [place] Lactic Acid, Plasmaon 2018 Interpretation and review of laboratory results Abnormal [place] Lactate [Moles/Vol] 2.5 mmol/L High 0.5 - 2. 2 mmol/L [place], [place] Lipaseon 04-17-2019 Lipase [Catalytic activity/Vol] 30 U/L 12 - 95 U/L [place] Microscopic Urinalysison Bacteria, UA FEW Abnormal /HPF [place] Crystals LM Nom (Urine sed) 1+ Ca. Oxalate [place], [place] Epi Cells >100 High [place] Hyaline Casts, UA 04-17 [facility] [place] Interpretation and review of laboratory results Abnormal [place] RBC (U) [#/Vol] /uL Abnormal [place] WBC, UA 50-100 Abnormal [place] Otheron 04-17-2019 Interpretation and review of laboratory results Abnormal [place] Urine Reflex to Cultureon Bilirubin Urine Negative Negative [place] Blood, Urine LARGE Abnormal Negative [place] Clarity, UA TURBID Abnormal Clear [place] Color, UA Yellow Straw/Clay ow [place] Glucose, Ur >=1000 Abnormal Negative mg/dL [place] Interpretation and review of laboratory results Abnormal [place] Ketones Ql (U) TRACE Abnormal Negative mg/dL [place] Leukocyte esterase Test strip Ql (U) SMALL Abnormal Negative [place] Nitrite, Urine Negative Negative [place], [place] pH, UA 5.5 [place] Protein (U) [Mass/Vol] TRACE Abnormal Negat isabella mg/dL [place] Specific [place], UA 1.040 [place], [place] Urine Reflex to Culture YES [place] Urobilinogen, Urine 0.2 <2.0 E.U./dL [place] CBC Auto Differentialon 03-29 Basophils (Bld) [#/Vol] 0.1 10*3/uL 0 - 0.2 K/uL [place] Basophils/100 WBC (Bld) 0.8 % [place] Eosinophils (Bld) [#/Vol] 0.2 10*3/uL 0 - 0.7 K/uL [place] Eosinophils/100 WBC (Bld) 2.4 % [place] Erythrocyte distribution width (RBC) [Ratio] 15.2 % High 11.5 - 14.5 % [place] Hematocrit (Bld) [Volume fraction] 41.3 % 37 - 47 % [place] Hemoglobin (Bld) [Mass/Vol] 13.7 g/dL 12 - 16 g/dL [place] Interpretation and review of laboratory results Abnormal [place] Lymphocytes (Bld) [#/Vol] 2.4 10*3/uL 1 - 4.8 K/uL [place] Lymphocytes/100 WBC (Bld) 31.7 % [place] MCH (RBC) [Entitic mass] 26.5 pg Low 27 - 31.3 pg [place] MCHC (RBC) [Mass/Vol] 33.2 % 33 - 37 % [place] MCV (RBC) [Entitic vol] 79.7 fL Low 82 - 100 fL [place] Monocytes (Bld) [#/Vol] 0.5 10*3/uL 0.2 - 0.8 K/uL [place] Monocytes/100 WBC (Bld) 6.7 % [place] Neutrophils Absolute 4.3 K/uL 1.4 - 6 .5 K/uL [place] Neutrophils/100 WBC (Bld) 58.4 % [place] Platelets (Bld) [#/Vol] 315 10*3/uL 130 - 400 K/uL [place] RBC (Bld) [#/Vol] 5.18 10*6/uL [place] WBC (Bld) [#/Vol] 7.4 10*3/uL 4.8 - 10.8 K/uL [place] Comprehensive Metabolic Pane ben 04-10-2019 Albumin [Mass/Vol] 4.7 g/dL High 3.5 - 4.6 g/dL [place] ALP [Catalytic activity/Vol] 75 U/L 40 - 130 U/L [place] ALT [Catalytic activity/Vol] 21 U/L 0 - 33 U/L [place] Anion gap [Moles/Vol] 15 mmol/L [place] AST [Catalytic activity/Vol] 21 U/L 0 - 35 U/L [place] Bilirubin Ql (U) 0.5 mg/dL 0.2 - 0.7 mg/dL [place] Calcium [Mass/Vol] 9.8 mg/dL 8.5 - 9.9 mg/dL [place] Chloride [Moles/Vol] 98 mmol/L [place] CO2 [Moles/Vol] 24 mmol/L [place], [place] Creatinine [Mass/Vol] 0.54 mg/dL 0.5 - 0.9 mg/dL [place] GFR >60.0 >60 [place], [place] Comment on above: >60 mL/min/1.73m2 EG FR, calc. for ages 18 and older using the MDRD formula (not corrected for weight), is valid for stable renal function. GFR Non- >60.0 >60 [place] Comment on above: >60 mL/min/1.73m2 EG FR, calc. for ages 18 and older using the MDRD formula (not corrected for weight), is valid for stable renal function. Globulin (S) [Mass/Vol] 3.8 g/dL High 2.3 - 3.5 g/dL [place] Glucose [Mass/Vol] 248 mg/dL High 70 - 99 mg/dL [place] Interpretation and review of laboratory results Abnormal [place] Potassium [Moles/Vol] 4.1 mmol/L [place] Protein [Mass/Vol] 8.5 g/dL High 6.3 - 8 g/dL [place] Sodium [Moles/Vol] 137 mmol/L [place] Urea nitrogen [Mass/Vol] 14 mg/dL 6 - 20 mg/dL [place] Microscopic Urinalysison Bacteria, UA MODERATE Abnormal /HPF [place] Epi Cells 20-50 [place] Hyaline Casts, UA 3-5 [facility] [place] Interpretation and review of laboratory results Abnormal [place] RBC (U) [#/Vol] /uL [place] WBC, UA 20-50 Abnormal [place] Urine Reflex to Cultureon Bilirubin Urine Negative Negative [place], [place] Blood, Urine LARGE Abnormal Negative [place] Clarity, UA CLOUDY Abnormal Clear [place] Color, UA Yellow Straw/Clay ow [place] Glucose, Ur >=1000 Abnormal Negative mg/dL [place] Interpretation and review of laboratory results Abnormal [place] Ketones Ql (U) Negative Negative mg/dL [place] Leukocyte esterase Test strip Ql (U) MODERATE Abnormal Negative [place] Nitrite, Urine Negative Negative [place], [place] pH, UA 5.0 [place], [place] Protein (U) [Mass/Vol] Negative Negat isabella mg/dL [place] Specific [place], UA 1.026 [place], [place] Urine Reflex to Culture YES [place] Urobilinogen, Urine 0.2 <2.0 E.U./dL [place] CBC Auto Differentialon Basophils (Bld) [#/Vol] 0.1 10*3/uL 0 - 0.2 K/uL [place] Basophils/100 WBC (Bld) 1.2 % [place] Eosinophils (Bld) [#/Vol] 0.2 10*3/uL 0 - 0.7 K/uL [place] Eosinophils/100 WBC (Bld) 2 % [place] Erythrocyte distribution width (RBC) [Ratio] 15.5 % High 11.5 - 14.5 % [place] Hematocrit (Bld) [Volume fraction] 38.4 % 37 - 47 % [place] Hemoglobin (Bld) [Mass/Vol] 12.6 g/dL 12 - 16 g/dL [place] Interpretation and review of laboratory results Abnormal [place] Lymphocytes (Bld) [#/Vol] 2.5 10*3/uL 1 - 4.8 K/uL [place] Lymphocytes/100 WBC (Bld) 31.9 % [place] MCH (RBC) [Entitic mass] 26.4 pg Low 27 - 31.3 pg [place] MCHC (RBC) [Mass/Vol] 32.8 % Low 33 - 37 % [place] MCV (RBC) [Entitic vol] 80.4 fL Low 82 - 100 fL [place] Monocytes (Bld) [#/Vol] 0.7 10*3/uL 0.2 - 0.8 K/uL [place] Monocytes/100 WBC (Bld) 8.7 % [place] Neutrophils Absolute 4.4 K/uL 1.4 - 6 .5 K/uL [place] Neutrophils/100 WBC (Bld) 56.2 % [place] Platelets (Bld) [#/Vol] 275 10*3/uL 130 - 400 K/uL [place] RBC (Bld) [#/Vol] 4.78 10*6/uL [place] WBC (Bld) [#/Vol] 7.8 10*3/uL 4.8 - 10.8 K/uL [place] Comprehensive Metabolic Pane ben 04-05-2019 Albumin [Mass/Vol] 4.3 g/dL 3.5 - 4.6 g/dL [place] ALP [Catalytic activity/Vol] 66 U/L 40 - 130 U/L [place] ALT [Catalytic activity/Vol] 28 U/L 0 - 33 U/L [place] Comment on above: Specimen hemolysis h as exceeded the interference as defined by Mariah. Result may be affected. Suggest recollection if clinically indicated. Anion gap [Moles/Vol] 14 mmol/L [place] AST [Catalytic activity/Vol] 42 U/L High 0 - 35 U/L [place] Comment on above: Specimen hemolysis h as exceeded the interference as defined by Mraiah. Value may be falsely increased. Suggest recollection if clinically indicated. Bilirubin Ql (U) 0.3 mg/dL 0.2 - 0.7 mg/dL [place] Calcium [Mass/Vol] 9.4 mg/dL 8.5 - 9.9 mg/dL [place] Chloride [Moles/Vol] 102 mmol/L [place] CO2 [Moles/Vol] 22 mmol/L [place], [place] Creatinine [Mass/Vol] 0.49 mg/dL Low 0.5 - 0.9 mg/dL [place] GFR >60.0 >60 [place], [place] Comment on above: >60 mL/min/1.73m2 EG FR, calc. for ages 18 and older using the MDRD formula (not corrected for weight), is valid for stable renal function. GFR Non- >60.0 >60 [place] Comment on above: >60 mL/min/1.73m2 EG FR, calc. for ages 18 and older using the MDRD formula (not corrected for weight), is valid for stable renal function. Globulin (S) [Mass/Vol] 3.7 g/dL High 2.3 - 3.5 g/dL [place] Glucose [Mass/Vol] 247 mg/dL High 70 - 99 mg/dL [place] Interpretation and review of laboratory results Abnormal [place] Potassium [Moles/Vol] 4.7 mmol/L [place] Comment on above: Specimen hemolysis h as exceeded the interference as defined by Mariah. Value may be falsely increased. Suggest recollection if clinically indicated. Protein [Mass/Vol] 8.0 g/dL 6.3 - 8 g/dL [place] Sodium [Moles/Vol] 138 mmol/L [place], [place] Urea nitrogen [Mass/Vol] 9 mg/dL 6 - 20 mg/dL [place] Microscopic Urinalysison Bacteria, UA Negative /HPF [place] Epi Cells 6-10 [place] Hyaline Casts, UA 0-1 [facility] [place] Interpretation and review of laboratory results Abnormal [place] RBC (U) [#/Vol] /uL [place] WBC, UA 0-2 [place] Urine Reflex to Cultureon Bilirubin Urine Negative Negative [place], [place] Blood, Urine MODERATE Abnormal Negative [place] Clarity, UA Clear Clear [place] Color, UA Yellow Straw/Clay ow [place] Glucose, Ur >=1000 Abnormal Negative mg/dL [place] Interpretation and review of laboratory results Abnormal [place] Ketones Ql (U) Negative Negative mg/dL [place] Leukocyte esterase Test strip Ql (U) Negative Negative [place] Nitrite, Urine Negative Negative [place], [place] pH, UA 6.0 [place] Protein (U) [Mass/Vol] Negative Negat isabella mg/dL [place] Specific [place], UA 1.021 [place], [place] Urine Reflex to Culture YES [place] Urobilinogen, Urine 0.2 <2.0 E.U./dL [place] CBC Auto Differentialon Basophils (Bld) [#/Vol] 0.1 10*3/uL 0 - 0.2 K/uL [place] Basophils/100 WBC (Bld) 0.9 % [place] Eosinophils (Bld) [#/Vol] 0.3 10*3/uL 0 - 0.7 K/uL [place] Eosinophils/100 WBC (Bld) 2.7 % [place] Erythrocyte distribution width (RBC) [Ratio] 17.1 % High 11.5 - 14.5 % [place] Hematocrit (Bld) [Volume fraction] 39.3 % 37 - 47 % [place] Hemoglobin (Bld) [Mass/Vol] 12.7 g/dL 12 - 16 g/dL [place] Lymphocytes (Bld) [#/Vol] 2.2 10*3/uL 1 - 4.8 K/uL [place] Lymphocytes/100 WBC (Bld) 22.2 % [place] MCH (RBC) [Entitic mass] 25.6 pg Low 27 - 31.3 pg [place] MCHC (RBC) [Mass/Vol] 32.4 % Low 33 - 37 % [place] MCV (RBC) [Entitic vol] 78.9 fL Low 82 - 100 fL [place] Monocytes (Bld) [#/Vol] 0.7 10*3/uL 0.2 - 0.8 K/uL [place] Monocytes/100 WBC (Bld) 6.8 % [place] Neutrophils Absolute 6.6 K/uL High 1.4 - 6 .5 K/uL [place] Neutrophils/100 WBC (Bld) 67.4 % [place] Platelets (Bld) [#/Vol] 290 10*3/uL 130 - 400 K/uL [place] RBC (Bld) [#/Vol] 4.98 10*6/uL [place] WBC (Bld) [#/Vol] 9.8 10*3/uL 4.8 - 10.8 K/uL [place] Comprehensive Metabolic Pane ben 02-28-2019 Albumin [Mass/Vol] 4 g/dL 3.5 - 4.6 g/dL [place] ALP [Catalytic activity/Vol] 93 U/L 40 - 130 U/L [place] ALT [Catalytic activity/Vol] 17 U/L 0 - 33 U/L [place] Anion gap [Moles/Vol] 13 mmol/L [place] AST [Catalytic activity/Vol] 17 U/L 0 - 35 U/L [place] Bilirubin Ql (U) 0.3 mg/dL 0.2 - 0.7 mg/dL [place] Calcium [Mass/Vol] 9.1 mg/dL 8.5 - 9.9 mg/dL [place] Chloride [Moles/Vol] 102 mmol/L [place] CO2 [Moles/Vol] 24 mmol/L [place], [place] Creatinine [Mass/Vol] 0.65 mg/dL 0.5 - 0.9 mg/dL [place] GFR >60.0 >60 [place], [place] Comment on above: >60 mL/min/1.73m2 EG FR, calc. for ages 18 and older using the MDRD formula (not corrected for weight), is valid for stable renal function. GFR Non- >60.0 >60 [place] Comment on above: >60 mL/min/1.73m2 EG FR, calc. for ages 18 and older using the MDRD formula (not corrected for weight), is valid for stable renal function. Globulin (S) [Mass/Vol] 3.6 g/dL High 2.3 - 3.5 g/dL [place] Glucose [Mass/Vol] 371 mg/dL High 70 - 99 mg/dL [place] Potassium [Moles/Vol] 4.1 mmol/L [place] Protein [Mass/Vol] 7.6 g/dL 6.3 - 8 g/dL [place] Sodium [Moles/Vol] 139 mmol/L [place] Urea nitrogen [Mass/Vol] 14 mg/dL 6 - 20 mg/dL [place] Microscopic Urinalysison Bacteria, UA RARE Abnormal /HPF [place] Epi Cells 6-10 [place] Hyaline Casts, UA 1-3 [place] Interpretation and review of laboratory results Abnormal [place] RBC (U) [#/Vol] 3-5 [facility] [place] WBC, UA 20-50 Abnormal [place] Otheron 02-28-2019 Interpretation and review of laboratory results Abnormal [place] US RETROPERITONEAL LIMITEDon 02-28-2019 INR Coag (Bld) [Relative time] NEGATIVE ULTRASOUND EXAMINATION OF THE KIDNEYS. [place] EXAMINATION: ULTRASO UND RETROPERITONEAL LIMITED (KIDNEYS) CLINICAL HISTORY: L flank cabello flank pain nausea COMPARISONS: 01/28/2019 TECHNIQUE: Transabdominal sector bazan scale sonography. Sonographic imaging was performed by a registered apparel sales leader and the images are submitted for interpretation. FINDINGS: The right kidney measures 5.2 x 6.5 x 13.0cm. The left kidney measures 5.2 x 5.5 x 13.8cm. There is no hydronephrosis. No renal masses identified. Renal parenchymal echotexture and thickness appear normal. There is no significant change from prior exam. [place] Hemant, Chpo Incoming Radiant Results From [employer] - 02/28/2019 3:31 PM EDT EXAMINATION: ULTRASOUND RETROPERITONEAL LIMITED (KIDNEYS) CLINICAL HISTORY: L flank cabello flank pain nausea COMPARISONS: 01/28/2019 TECHNIQUE: Transabdominal sector bazan scale sonography. Sonographic imaging was performed by a registered apparel sales leader and the images are submitted for interpretation. FINDINGS: The right kidney measures 5.2 x 6.5 x 13.0cm. The left kidney measures 5.2 x 5.5 x 13.8cm. There is no hydronephrosis. No renal masses identified. Renal parenchymal echotexture and thickness appear normal. There is no significant change from prior exam. IMPRESSION: NEGATIVE ULTRASOUND EXAMINATION OF THE KIDNEYS. [place] Urinalysison 02-28-2019 Bilirubin Urine Negative Negative [place], [place] Blood, Urine Negative Negative [place] Clarity, UA Clear Clear [place] Color, UA Yellow Straw/Clay ow [place] Glucose, Ur >=1000 Abnormal Negative mg/dL [place] Interpretation and review of laboratory results Abnormal [place] Ketones Ql (U) Negative Negative mg/dL [place] Leukocyte esterase Test strip Ql (U) TRACE Abnormal Negative [place] Nitrite, Urine Negative Negative [place], [place] pH, UA 5.5 [place] Protein (U) [Mass/Vol] Negative Negat isabella mg/dL [place] Specific [place], UA 1.037 [place], [place] Urobilinogen, Urine 0.2 <2.0 E.U./dL [place] CT SINUS WO CONTRASTon 02-[address] facial sinuses. All CT scans at this facility use dose modulation, iterative reconstruction, and/or weight based dosing when appropriate to reduce radiation dose to as low as reasonably achievable. [place] facial sinuses, without intravenous contrast medium. HISTORY: Left-sided headache. Recurrent sinus infections and strep throat for 2 months. Technical factors: CT imaging facial sinuses obtained and formatted as 2.5 mm contiguous axial images. Sagittal and coronal reconstruction obtained during postprocessing. No intravenous contrast medium utilized. No prior CT facial sinuses available for comparison. FINDINGS: The frontal, ethmoid, sphenoid, and maxillary sinuses are patent. Limited imaging, mastoid air cells, well pneumatized. The ocular globes, optic nerves, extraocular muscles, and retrobulbar fat are without anomaly. No fracture, or bone lesion is demonstrated. Temporomandibular joints without anomaly. [place] Hemant, Chpo Incoming Radiant Results From [employer] - 02/07/2019 2:[address] facial sinuses, without intravenous contrast medium. HISTORY: Left-sided headache. Recurrent sinus infections and strep throat for 2 months. Technical factors: CT imaging facial sinuses obtained and formatted as 2.5 mm contiguous axial images. Sagittal and coronal reconstruction obtained during postprocessing. No intravenous contrast medium utilized. No prior CT facial sinuses available for comparison. FINDINGS: The frontal, ethmoid, sphenoid, and maxillary sinuses are patent. Limited imaging, mastoid air cells, well pneumatized. The ocular globes, optic nerves, extraocular muscles, and retrobulbar fat are without anomaly. No fracture, or bone lesion is demonstrated. Temporomandibular joints without anomaly. IMPRESSION: Negative CT facial sinuses. All CT scans at this facility use dose modulation, iterative reconstruction, and/or weight based dosing when appropriate to reduce radiation dose to as low as reasonably achievable. [place] US ABDOMEN LIMITEDon 019 NEGATIVE RIGHT UPPER QUADRANT ULTRASOUND. [place] EXAMINATION: US ABDO MEN LIMITED: DATE AND TIME: 02/03/2019 at 7:32 AM. CLINICAL HISTORY: EPIGASTRIC PAIN. ABNORMAL LIVER. COMPARISON: None. TECHNIQUE: Bazan-scale evaluation of the right upper quadrant was performed. FINDINGS: Liver: Body habitus limits sonographic beam assessment of liver. Hepatic echogenicity is within normal limits without intrahepatic biliary dilatation. Gallbladder: Patient is status post cholecystectomy. The common duct measures up to 7 mm. Pancreas: Was not optimally visualized due to bowel and gas shadowing, but the visualized portion did not demonstrate any gross pathology. [place] Hemant, Chpo Incoming Radiant Results From [employer] - 02/03/2019 2:20 PM EDT EXAMINATION: US ABDOMEN LIMITED: DATE AND TIME: 02/03/2019 at 7:32 AM. CLINICAL HISTORY: EPIGASTRIC PAIN. ABNORMAL LIVER. COMPARISON: None. TECHNIQUE: Bazan-scale evaluation of the right upper quadrant was performed. FINDINGS: Liver: Body habitus limits sonographic beam assessment of liver. Hepatic echogenicity is within normal limits without intrahepatic biliary dilatation. Gallbladder: Patient is status post cholecystectomy. The common duct measures up to 7 mm. Pancreas: Was not optimally visualized due to bowel and gas shadowing, but the visualized portion did not demonstrate any gross pathology. IMPRESSION: NEGATIVE RIGHT UPPER QUADRANT ULTRASOUND. [place] Basic Metabolic Panlon 12-16 Anion gap molar conc 15 mmol/L Normal 9-18 [facility] Calcium mass conc 9.8 mg/dL Normal 8.5-10.2 [facility] spital Chloride molar conc 97 mmol/L Normal 97-105 [facility] CO2 molar conc 23 mmol/L Normal 22-30 [facility] Creatinine mass conc 0.55 mg/dL Low 0.58-0.96 [facility] eGFR- Amer. >60 Normal [facility] GFR/1.73 sq M predicted among non-blacks MDRD vol rate/area (S/P/Bld) mL/min/{1.73_m2} Normal [facility] al Comment on above: Result Comment: eGFR (Estimated GFR) Units of measure: mL/min/1.73 meters squared eGFR is derived from the reexpressed MDRD Study equation using the following parameters: serum creatinine, age, gender and race. The creatinine assay has been calibrated to be traceable to IDMS. An eGFR <60 mL/min/1.73m2 for >3 months is consistent with chronic kidney disease. Refer to KDOQI guidelines for clinical interpretation. In patients with unstable renal function, e.g. those with acute kidney injury, the eGFR may not accurately reflect actual GFR. Glucose mass conc 320 mg/dL High 74-99 [facility] bhakti Comment on above: Result Comment: The [place] Diabetes Association (ADA) provides guidance for cutoff values for fasting glucose and random glucose. The ADA defines fasting as no caloric intake for at least 8 hours. Fasting plasma glucose results between 100 to 125 mg/dL indicate increased risk for diabetes (prediabetes). Fasting plasma glucose results greater than or equal to 126 mg/dL meet the criteria for diagnosis of diabetes. In the absence of unequivocal hyperglycemia, results should be confirmed by repeat testing. In a patient with classic symptoms of hyperglycemia or hyperglycemic crisis, random plasma glucose results greater than or equal to 200 mg/dL meet the criteria for diagnosis of diabetes. Reference: Standards of Medical Care in Diabetes 2016, [place] [employer] Association. Diabetes Care. 2016.39(Suppl 1). Potassium molar conc 4.3 mmol/L Normal 3.7-5.1 [facility] Sodium molar conc 135 mmol/L Low 136-144 [facility] bhakti Urea nitrogen mass conc 12 mg/dL Normal 7-21 [facility] CBC and Differentialon 12-16 Abs Baso 0.07 k/uL Normal <0.11 [facility] Abs [place] 0.49 k/uL Normal <0.87 [facility] Abs Neut 3.35 k/uL Normal 1.45-7.50 [facility] Absolute nRBC <0.01 Normal <0.01 [facility] al Basophils/100 WBC (Bld) 1.1 % Normal [facility] DTYPE Auto Diff Normal [facility] Eosinophils #/vol (Bld) 0.22 10*3/uL Normal <0.46 [facility] Eosinophils/100 WBC (Bld) 3.5 % Normal [facility] Erythrocyte distribution width Ratio (RBC) 13.8 % Normal 11.5-15.0 [facility] Hematocrit Volume Fraction (Bld) 40.9 % Normal 36.0-46.0 [facility] Hemoglobin mass conc (Bld) 12.6 g/dL Normal 11.5-15.5 [facility] Lymphocytes #/vol (Bld) 2.13 10*3/uL Normal 1.00-4.00 [facility] Lymphocytes/100 WBC (Bld) 34.0 % Normal [facility] MCH Entitic mass (RBC) 24.2 pG Low 26.0-34.0 [facility] MCHC mass conc (RBC) 30.8 g/dL Normal 30.5-36.0 [facility] MCV Entitic volume (RBC) 78.7 fL Low 80.0-100.0 [facility] Monocytes/100 WBC (Bld) 7.8 % Normal [facility] Neutrophils/100 WBC (Bld) 53.6 % Normal [facility] NRBCs 0.0 /100 WBC Normal 0 [facility] Platelet mean volume Entitic volume (Bld) 9.5 fL Normal 9.0-12.7 [facility] Platelets #/vol (Bld) 331 10*3/uL Normal 150-400 [facility] RBC #/vol (Bld) 5.20 10*6/uL Normal 3.90-5.20 [facility] spital WBC #/vol (Bld) 6.26 10*3/uL Normal 3.70-11.00 [facility] ED NOTEon 12-16-2018 ED NOTE HNO ID: [id number] Author: Vivek (Rn) SHALOM Tran Service: ? Author Type: Registered Nurse Type: ED Notes Filed: 12/16/2018 5:22 AM Note Text: Patient discharge instructions and follow up care reviewed and discussed. Patient verbalized understanding of against medical advice form after speaking with Valerie FRANK and this RN and willingly signed it. Patient verbalized understanding with no further questions at discharge. Patient ambulatory at discharge exiting department. Normal [facility] ED NOTE HNO ID: [id number] Author: Vivek Santos) SHALOM Tran Service: ? Author Type: Registered Nurse Type: ED Notes Filed: 12/16/2018 5:01 AM Note Text: Patient states she is unsure if she wants to stay and is contemplating going home and calling her doctor in the morning. Valerie FRANK notified. [facility] ED NOTE HNO ID: [id number] Author: Margaret Burnette (Medic) Juliana Leal Service: ? Author Type: Irrigation Foreman and Chemical Research Technician Type: ED Notes Filed: 12/16/2018 4:56 AM Note Text: Labs were drawn and sent. [facility] ED NOTE HNO ID: [id number] Author: Vivek (Rn) SHALOM Tran Service: ? Author Type: Registered Nurse Type: ED Notes Filed: 12/16/2018 4:21 AM Note Text: Patient presents to ED for c/o right flank pain since Thursday. Reports nausea and dry heaves. Burning with urination. Hx kidney stones. Aox3. [facility] ED PROV NOTEon 12-16-2018 Protein mass conc HNO ID: [id number] Author: MONIKA Laurent Service: ? Author Type: Physician Produce Production Team Member Type: ED Provider Notes Filed: 12/17/2018 2:34 PM Note Text: ED Provider Note Patient Name: Gisel Carlton SERVICE DATE: 12/16/18 History Patient presents with: Flank Pain: right 43-year-old female with history of diabetes, hypertension, nephrolithiasis, GERD presents to the emergency department with right flank pain ?2 days. Currently complaining of constant 8/10 sharp and stabbing pain in the right flank region with occasional radiation to the right lateral abdomen associated with nausea and vomiting. She has been dry heaving for several hours. Also experiencing dysuria, dark urine, hematuria. Denies fevers/chills, chest pain, shortness of breath, change in bowel movements. Patient states that she was seen at [facility] for the same complaints, but she does not feel like she has been properly managed. States her current pain is similar to previous kidney stones. She has never seen a urologist due to high copay. PAST MEDICAL HISTORY Diagnosis Date - Diabetes (HCC) - Fracture right leg fracture at age 6 - Gastroesophageal reflux - Hypercholesteremia - Hypertension 11/24/2013 - Kidney stones - Personal history of unspecified urinary disorder PAST SURGICAL HISTORY Procedure Laterality Date - CHOLECYSTECTOMY HX - EGD 08/08/14 - HYSTERECTOMY HX - LITHOTRIPSY COMMON BILE DUCT FAMILY HISTORY Problem Relation Age of Onset - other (myocardial infarct [Other]) Other 50 grandparents on both sides - other (triple bypass [Other]) Father 45 Social History Tobacco Use - Smoking status: Never Smoker - Smokeless tobacco: Never Used Substance and Sexual Activity - Alcohol use: No - Drug use: No - Sexual activity: Not on file ALLERGIES Allergen Reactions - Asa [Aspirin] Other: See Comments Pt states gives me nosebleeds - Demerol [Meperidine* Hives - Fentanyl Hives, Itching - Morphine Rash - Nubain [Nalbuphine * Hives - Penicillin G Hives - Toradol [Ketorolac * Hives - Zithromax [Azithrom* Hives Review of Systems Constitutional: Negative. HENT: Negative. Respiratory: Negative. Gastrointestinal: Positive for nausea and vomiting. Genitourinary: Positive for flank pain and hematuria. Neurological: Negative. Hematological: Negative. Psychiatric/Behavioral: Negative. All other systems reviewed and are negative. Physical Exam BP 152/91 Pulse 124 Temp (Src) 98.7 (Oral) Resp 18 Ht 5' 7 (1.70m) Wt 280 lb (127.0kg) SpO2 97% BMI 43.84 kg/(m2). O2 Therapy: Room Air Physical Exam Constitutional: obese HENT: Mouth/Throat: Oropharynx is clear and moist. Eyes: Pupils are equal, round, and reactive to light. Cardiovascular: tachycardic Pulmonary/Chest: Effort normal and breath sounds normal. Abdominal: Soft. Normal appearance and bowel sounds are normal. There is CVA tenderness. There is no rigidity, no rebound and no guarding. Neurological: She is alert. Skin: Skin is warm. Capillary refill takes less than 2 seconds. Psychiatric: She has a normal mood and affect. Her behavior is normal. Nursing note and vitals reviewed. Diagnostic Testing ED Labs Ordered and Reviewed - No data to display Procedures ED Course / Clinical Impression ED Course as of Dec 17 1420 Valerie Chung's Documentation Rohini Dec 16, 2018 0513 Patient prefers to leave AMA and see PCP in the morning. She understands risk of leaving can lead to permanent disability or . Clinical Impressions as of Dec 17 1420 Flank pain MDM / Disposition / Plan 43-year-old female with history of diabetes, hypertension, nephrolithiasis, GERD presents to the emergency department with right flank pain, hematuria, dysuria ?2 days. DDX: sepsis due to cystitis, pyelonephritis, infected stone, nephrolithiasis, KRANTHI, bowel obstruction, dehydration, electrolyte abnormality. On arrival, patient is non-toxic but crying. She ambulated to room in [facility]. VS with tachycardia of 125, BP 152/91, otherwise WNL. Exam with right cva tenderness, otherwise WNL. Patient offered IV fluids, zofran, and Percocet. Percocet was decided over dilaudid as per chart review, patient requests this frequently. Per chart review, patient seen 12/09 at different ED for left flank pain- urine culture and kidney US WNL, given IV dilaudid. Seen on 12/13 and 12/14 at [facility] ED for right flank pain, urine with hematuria, no imaging completed, MDM unavailable, But patient again received Dilaudid. Similar ED visits over the last [address] flank, but patient declined as she has had so many. Agreeable to KUB and US. After being told she would not receive IV dilaudid, she told nurse she wanted to leave AMA to see her own doctor in the morning. She understands leaving AMA puts her at risk for permanent disability or . Signed paperwork and walked out of ED in [facility]. DispositionThe patient was AMA. Condition at disposition is unchanged. SIGNATURE: MONIKA Laurent PA 12/17/18 1434 [facility] PROGRESSon 12-16-2018 Protein mass conc HNO ID: [id number] Author: Zenaida Peña Service: ? Author Type: ? Type: Progress Notes Filed: 12/16/2018 5:04 AM Note Text: Radiology Service Progress Note PATIENT NAME: Gisel Carlton DATE OF SERVICE: December 16, 2018 TIME: 5:04 AM PATIENT IDENTITY VERIFICATION COMPLETED USING TWO (2) METHODS: Patient confirmed name verbally and ID band matches.. PATIENT GENDER DATA: Female. status: : No status: NO. PATIENT RELEVANT IMPLANT DATA REVIEWED: Yes RADIOLOGY DEPARTMENT: General X-ray: Exam(s) Completed: Abdomen X-Ray Abdomen PERIPHERAL IV DATA: Not applicable SIGNED BY: Zenaida Peña December 16, 2018 5:04 AM Normal [facility] Urinalysis with Microscopico n 12-16-2018 Bacteria LM.HPF #/area (Urine sed) Present Critically abnormal 0 [facility] Bilirubin, Urine Negative Normal Negative [facility] pital Cast SEE COMMENT Normal 0 [facility] Comment on above: Result Comment: 0 Clarity Nom (U) Cloudy Critically abnormal Clear [facility] Color Nom (U) Yellow Normal Yellow [facility] Epithelial cells LM.HPF #/area (Urine sed) SEE COMMENT Normal [facility] Comment on above: Result Comment: Few Squamous Epithelial Cells Rare Non-Squamous Epithelial Cells Glucose Ql (U) >=1000 Critically abnormal Negative [facility] Hemoglobin/Blood,Ur 3+ Critically abnormal Negative [facility] Ketones Ql (U) Trace Critically abnormal Negative [facility] Leukest 1+ Critically abnormal Negative [facility] Nitrite Ql (U) Negative Normal Negative [facility] pH (Bld) 5.5 Normal 4.5-8.0 [facility] Protein mass conc (U) Trace Critically abnormal Negative [facility] RBC #/vol (U) /uL Critically abnormal 0-3 [facility] Specific [place], Ur >1.030 High 1.005-1 .03 0 [facility] Urobilinogen Qn (U) Normal Normal Normal [facility] WBC #/vol (Bld) 11-25 Critically abnormal 0-5 [facility] Urine Cultureon 12-16-2018 Bacteria identified Cx Nom (U) Sp. Request/Comment: - Specimen received in preservative Culture Result - 10,000 - <50,000 CFU/ml Normal urogenital lucia Normal [facility] Comment on above: Performed By: #### U RCUL #### [facility] [address] [place], [place] [address] XR ABDOMEN 1V SUPINEon 12-16 XR ABDOMEN 1V SUPINE * * *Final Report* * * DATE OF EXAM: Dec 16 2018 5:05AM [id number] [id number] - XR ABDOMEN 1V SUPINE / PROCEDURE REASON: Flank pain, stone disease suspected * * * * Physician Interpretation * * * * TECHNIQUE: XR ABDOMEN 1V SUPINE EXAM DATE: 12/16/2018 5:05 AM COMPARISON STUDIES: 09/26/2013 CLINICAL HISTORY: Flank pain, stone disease suspected RESULT: No dilated bowel. Phleboliths in the pelvis, difficult to exclude distal left ureter stone. Moderate stool burden. Cholecystectomy clips. Osseous structures intact IMPRESSION: Phleboliths in the pelvis, difficult to exclude distal left ureter stone. No dilated bowel Foam Charger: DALIA Transcribe Date/Time: Dec 16 2018 5:07A Dictated by : GELY MARTIN MD This examination was interpreted and the report reviewed and electronically signed by: GELY MARTIN MD on Dec 16 2018 5:10AM EST [id number] Normal [facility] Amylaseon 09-19-2018 Amylase enzyme act/vol 18 U/L Normal 12-94 [facility] Comment on above: Performed By: #### U ARFX #### [facility] [address] [place] [address] CBC With Differentialon 08-28 Basophils #/vol (Bld) 0.03 10*3/uL Normal 0.01-0.07 [facility] Comment on above: Performed By: #### U ARFX #### [facility] [address] [place] [address] Basophils/100 WBC (Bld) 0.5 % Normal 0.1-1.2 [facility] Comment on above: Performed By: #### U ARFX #### [facility] [address] [place] [address] Eosinophils #/vol (Bld) 0.07 10*3/uL Normal 0.04-0.50 [facility] Comment on above: Performed By: #### U ARFX #### [facility] [address] [place] [address] Eosinophils/100 WBC (Bld) 1.1 % Normal 0.0-8.1 [facility] Comment on above: Performed By: #### U ARFX #### [facility] [address] [place] [address] Erythrocyte distribution width Ratio (RBC) 13.4 % Normal 12.0-15.4 [facility] Comment on above: Performed By: #### U ARFX #### [facility] [address] [place] [address] Hematocrit Volume Fraction (Bld) 40.3 % Normal 36.5-46.6 [facility] Comment on above: Performed By: #### U ARFX #### [facility] [address] [place] [address] Hemoglobin mass conc (Bld) 13.1 g/dL Normal 11.8-15.3 [facility] Comment on above: Performed By: #### U ARFX #### [facility] [address] [place] [address] Imm Grans Absolute 0.01 10*3/uL Normal [facility] Comment on above: Performed By: #### U ARFX #### [facility] [address] [place] [address] Immature granulocytes #/vol (Bld) 0.2 % Normal [facility] Comment on above: Performed By: #### U ARFX #### [facility] [address] [place] [address] Lymphocytes #/vol (Bld) 2.31 10*3/uL Normal 0.40-2.84 [facility] Comment on above: Performed By: #### U ARFX #### [facility] [address] [place] [address] Lymphocytes/100 WBC (Bld) 34.8 % Normal 15.7-50.5 [facility] Comment on above: Performed By: #### U ARFX #### [facility] [address] [place] [address] MCH Entitic mass (RBC) 26.1 pg Low 27.5-33.0 [facility] Comment on above: Performed By: #### U ARFX #### [facility] [address] [place] [address] MCHC mass conc (RBC) 32.5 g/dL Normal 30.1-35.0 [facility] Comment on above: Performed By: #### U ARFX #### [facility] [address] [place] [address] MCV Entitic volume (RBC) 80.4 fL Low 85.4-100.0 [facility] Comment on above: Performed By: #### U ARFX #### [facility] [address] [place] [address] Monocytes #/vol (Bld) 0.69 10*3/uL Normal 0.25-0.83 [facility] Comment on above: Performed By: #### U ARFX #### [facility] [address] [place] [address] Monocytes/100 WBC (Bld) 10.4 % Normal 4.8-12.7 [facility] Comment on above: Performed By: #### U ARFX #### [facility] [address] [place] [address] Neutrophils Absolute 3.52 10*3/uL Normal 1.95-6.85 [facility] Comment on above: Performed By: #### U ARFX #### [facility] [address] [place] [address] Neutrophils/100 WBC (Bld) 53.0 % Normal 36.8-73.2 [facility] Comment on above: Performed By: #### U ARFX #### [facility] [address] [place] [address] Platelet mean volume Entitic volume (Bld) 9.6 fL Low 9.9-12.1 [facility] Comment on above: Performed By: #### U ARFX #### [facility] [address] [place] [address] Platelets #/vol (Bld) 276 10*3/uL Normal 155-404 [facility] Comment on above: Performed By: #### U ARFX #### [facility] [address] [place] [address] RBC #/vol (Bld) 5.01 10*6/uL Normal 3.85-5.10 [facility] Comment on above: Performed By: #### U ARFX #### [facility] [address] [place] [address] RDW SD 39.3 fL Normal 39.3-48.6 [facility] Comment on above: Performed By: #### U ARFX #### [facility] [address] [place] [address] WBC #/vol (Bld) 6.6 10*3/uL Normal 4.4-9.9 [facility] Comment on above: Performed By: #### U ARFX #### [facility] [address] [place] [address] CHEST 2 VIEWon 09-19-2018 CHEST 2 VIEW DATE OF EXAM: Sep 18 2018 11:01PM CLINICAL HISTORY/ Patient Name: GSIEL CARLTON STUDY: CHEST 2 VIEW; 09/18/2018 11:01 pm INDICATION: Pain. COMPARISON: Chest radiograph 08/2015 ACCESSION NUMBER(S): [id number] ORDERING CLINICIAN: CRISTI YUSUF FINDINGS: CARDIOMEDIASTINAL SILHOUETTE: Cardiomediastinal silhouette is normal in size and configuration. LUNGS: No pulmonary consolidation, pleural effusion or pneumothorax. ABDOMEN: No remarkable upper abdominal findings. BONES: No acute osseous abnormality. CONCLUSION: IMPRESSION: No radiographic evidence of acute cardiopulmonary pathology. Normal [facility] CT ABDOMEN/PELVIS WITH CONTR Stella 09-19-2018 CT ABDOMEN/PELVIS WITH CONTRAST DATE OF EXAM: Sep 19 2018 12:44AM CLINICAL HISTORY/ Patient Name: GISEL CARLTON STUDY: CT ABDOMEN/PELVIS WITH CONTRAST; 09/19/2018 12:44 am INDICATION: Abdominal Pain. Right lower quadrant and right flank pain. Nausea and vomiting. COMPARISON: CT abdomen pelvis 10/15/2017 ACCESSION NUMBER(S): [id number] ORDERING CLINICIAN: CRISTI YUSUF TECHNIQUE: Axial CT images of the abdomen and pelvis with coronal and sagittal reconstructed images obtained after intravenous administration of 150 mL Isovue 370 FINDINGS: LOWER CHEST: No acute abnormality of the lung bases. ABDOMEN: LIVER: Normal attenuation and contour. BILE DUCTS: Normal caliber. GALLBLADDER: Surgically absent PORTAL VEIN: Patent SPLEEN: Unremarkable. PANCREAS: Unremarkable. ADRENALS: Unremarkable. KIDNEYS, URETERS and URINARY BLADDER: Symmetric renal enhancement. No hydronephrosis or perinephric fluid collection. Bladder is within normal limits REPRODUCTIVE ORGANS: Surgically absent. ABDOMINAL WALL: Within normal limits. PERITONEUM: No ascites, free air or fluid collection. BOWEL: No dilated bowel. Normal appendix. VESSELS: No aortic aneurysm. RETROPERITONEUM: No pathologically enlarged retroperitoneal lymph nodes. BONES: No acute osseous abnormality. CONCLUSION: IMPRESSION: No acute abdominal or pelvic process. No CT evidence of obstructive uropathy. Normal appendix. Normal [facility] Comprehensive Metabolic Pane ben 09-19-2018 Albumin mass conc 4.0 g/dL Normal 3.4-5.0 [facility] Comment on above: Performed By: #### U ARFX #### [facility] [address] [place] [address] Albumin/Globulin mass ratio 1.3 {ratio} Normal 0.9-2.4 [facility] Comment on above: Performed By: #### U ARFX #### [facility] [address] [place] [address] ALP enzyme act/vol 67 U/L Normal 45-117 [facility] Comment on above: Performed By: #### U ARFX #### [facility] [address] [place] [address] ALT enzyme act/vol 18 U/L Normal 7-45 [facility] Comment on above: Performed By: #### U ARFX #### [facility] [address] [place] [address] Anion gap molar conc 14 mmol/L Normal 10-20 [facility] Comment on above: Performed By: #### U ARFX #### [facility] [address] [place] [address] AST enzyme act/vol 16 U/L Normal 13-39 [facility] Comment on above: Performed By: #### U ARFX #### [facility] [address] [place] [address] Bilirubin mass conc 0.6 mg/dL Normal 0.0-1.2 [facility] Comment on above: Performed By: #### U ARFX #### [facility] [address] [place] [address] Calcium mass conc 8.5 mg/dL Low 8.6-10.3 [facility] Comment on above: Performed By: #### U ARFX #### [facility] [address] [place] [address] Chloride molar conc 102 mmol/L Normal 98-107 [facility] Comment on above: Performed By: #### U ARFX #### [facility] [address] [place] [address] Creatinine mass conc 0.70 mg/dL Normal 0.50-1.05 [facility] Comment on above: Performed By: #### U ARFX #### [facility] [address] [place] [address] GFR/1.73 sq M.predicted MDRD vol rate/area mL/min/{1.73_m2} Normal [facility] Comment on above: Result Comment: Inte rpretation for Chronic Kidney Disease: Stages 1&2 >60 Healthy or potential kidney damage. Mild decrease of GFR. Stage 3 30-59 Moderate decrease of GFR. Stage 4 15-29 Severe decrease of GFR. Stage 5 <15 Kidney failure or on dialysis. Performed By: #### U ARFX #### [facility] [address] [place] [address] Glucose mass conc 222 mg/dL High 70-100 [facility] Comment on above: Performed By: #### U ARFX #### [facility] [address] [place] [address] HCO3 molar conc (Bld) 25 mmol/L Normal 21-32 [facility] Comment on above: Performed By: #### U ARFX #### [facility] [address] [place] [address] Potassium molar conc 3.3 mmol/L Low 3.5-5.1 [facility] Comment on above: Performed By: #### U ARFX #### [facility] [address] [place] [address] Protein mass conc 7.1 g/dL Normal 6.4-8.2 [facility] Comment on above: Performed By: #### U ARFX #### [facility] [address] [place] [address] Sodium molar conc 138 mmol/L Normal 136-145 [facility] Comment on above: Performed By: #### U ARFX #### [facility] [address] [place] [address] Urea nitrogen mass conc 18 mg/dL Normal 6-23 [facility] Comment on above: Performed By: #### U ARFX #### [facility] [address] [place] [address] Urea nitrogen/Creatinine mass ratio 26 mg/mg High 11-20 [facility] Comment on above: Performed By: #### U ARFX #### [facility] [address] [place] [address] Culture, Urine Bacterialon 0 09-19-2018 Culture, Urine Bacterial BILL#: [id number] : 75 AGE: SEX: F SOURCE: URINE COLLECTED: 09/18/18 23:38 ANTIBIOTICS AT RASHEEDA.: RECEIVED : 09/19/18 21:48 SITE: Unspecified R E S U L T S URINE CULTURE,BACTERIAL FINAL 09/20/18 15:01 NO GROWTH Normal [facility] Comment on above: Performed By: #### [id number] #### [facility] [address] [place] [id number] Lipaseon 09-19-2018 Lipase enzyme act/vol 11 U/L Normal 9-82 [facility] Comment on above: Performed By: #### U ARFX #### [facility] [address] [place] [address] Partial Thromboplastin Timeo n 09-19-2018 aPTT Coag time (Bld) 28.1 s Normal 28.0-38.0 [facility] Comment on above: Result Comment: NAVJOT REYEZ NOTE NEW REFERENCE RANGE EFFECTIVE 10:00AM 2018 . The APTT is no longer used for monitoring Unfractionated Heparin Therapy. For monitoring Heparin Therapy, use the Heparin Assay. Performed By: #### U ARFX #### [facility] [address] [place] [address] Prothrombin Timeon 9 INR Coag RelTime (PPP) 1.07 {INR} Normal 0.90-1.10 [facility] Comment on above: Performed By: #### U ARFX #### [facility] [address] [place] [address] Prothrombin time (PT) Coag time (PPP) 11.8 s Normal 9.7-12.7 [facility] Comment on above: Result Comment: NAVJOT REYEZ NOTE NEW REFERENCE RANGE EFFECTIVE 2018 Performed By: #### U ARFX #### [facility] [address] [place] [address] Urinalysis with Reflex Cultu reon 09-19-2018 Appearance Nom (U) Cloudy Normal Clear [facility] Comment on above: Performed By: #### U ARFX #### [facility] [address] [place] [address] Ascorbic Acid Negative Normal Negative [facility] Comment on above: Performed By: #### U ARFX #### [facility] [address] [place] [address] Bacteria LM.HPF #/area (Urine sed) Moderate Normal None [facility] Comment on above: Performed By: #### U ARFX #### [facility] [address] [place] [address] Bilirubin mass conc Negative Normal Negative [facility] Comment on above: Performed By: #### U ARFX #### [facility] [address] [place] [address] Blood Negative Normal Negative [facility] Comment on above: Performed By: #### U ARFX #### [facility] [address] [place] [address] Color Nom (U) Yellow Normal [facility] Comment on above: Performed By: #### U ARFX #### [facility] [address] [place] [address] Epithelial cells.squamous LM.HPF #/area (Urine sed) Many Normal Few [facility] Comment on above: Performed By: #### U ARFX #### [facility] [address] [place] [address] Glucose mass conc Negative Normal Negative [facility] Comment on above: Performed By: #### U ARFX #### [facility] [address] [place] [address] Ketones Ql (U) 5 mg/dL Abnormal Negative [facility] Comment on above: Performed By: #### U ARFX #### [facility] [address] [place] [address] Leukocytes Esterase Moderate Abnormal Negative [facility] Comment on above: Performed By: #### U ARFX #### [facility] [address] [place] [address] Mucous Few Normal None [facility] Comment on above: Performed By: #### U ARFX #### [facility] [address] [place] [address] Nitrite Ql (U) Negative Normal Negative [facility] Comment on above: Performed By: #### U ARFX #### [facility] [address] [place] [address] pH (Bld) 5.0 Normal 5.0-9.0 [facility] Comment on above: Performed By: #### U ARFX #### [facility] [address] [place] [address] Protein mass conc (U) Negative Normal Negative [facility] Comment on above: Performed By: #### U ARFX #### [facility] [address] [place] [address] Specific gravity Relative Density (U) 1.031 Normal 1.003-1.03 5 [facility] Comment on above: Performed By: #### U ARFX #### [facility] [address] [place] [address] Urine Microscopic Performed Normal [facility] Comment on above: Performed By: #### U ARFX #### [facility] [address] [place] [address] Urobilinogen Qn (U) <2.0 Normal Negative [facility] Comment on above: Result Comment: Due to a manufacturing issue, low positive urobilinogen results may be falsely positive. Correlate with urine bilirubin and additional clinical/laboratory findings to assess the risk of hemolytic anemia or liver disease. If clinically indicated, repeat testing with an alternate method is available by contacting the laboratory within 24 hours. Performed By: #### U ARFX #### [facility] [address] [place] [address] WBC #/vol (Bld) 5-10 Normal 0-5 [facility] Comment on above: Performed By: #### U ARFX #### [facility] [address] [place] [address] Basic Metabolic Panelon 07-31 Anion gap molar conc 16 mmol/L Normal 10-20 [facility] Comment on above: Performed By: #### 1 [id number] #### [facility] [address] [place] [address] Calcium mass conc 9.8 mg/dL Normal 8.6-10.3 [facility] Comment on above: Performed By: #### 1 [id number] #### [facility] [address] [place] [address] Chloride molar conc 102 mmol/L Normal 98-107 [facility] Comment on above: Performed By: #### 1 [id number] #### [facility] [address] [place] [address] Creatinine mass conc 0.71 mg/dL Normal 0.50-1.05 [facility] Comment on above: Performed By: #### 1 [id number] #### [facility] [address] [place] [address] GFR/1.73 sq M.predicted MDRD vol rate/area mL/min/{1.73_m2} Normal [facility] Comment on above: Result Comment: Inte rpretation for Chronic Kidney Disease: Stages 1&2 >60 Healthy or potential kidney damage. Mild decrease of GFR. Stage 3 30-59 Moderate decrease of GFR. Stage 4 15-29 Severe decrease of GFR. Stage 5 <15 Kidney failure or on dialysis. Performed By: #### 1 [id number] #### [facility] [address] [place] [address] Glucose mass conc 182 mg/dL High 70-100 [facility] Comment on above: Performed By: #### 1 [id number] #### [facility] [address] [place] [address] HCO3 molar conc (Bld) 25 mmol/L Normal 21-32 [facility] Comment on above: Performed By: #### 1 [id number] #### [facility] [address] [place] [address] Potassium molar conc 4.5 mmol/L Normal 3.5-5.1 [facility] Comment on above: Performed By: #### 1 [id number] #### [facility] [address] [place] [address] Sodium molar conc 138 mmol/L Normal 136-145 [facility] Comment on above: Performed By: #### 1 [id number] #### [facility] [address] [place] [address] Urea nitrogen mass conc 14 mg/dL Normal 6-23 [facility] Comment on above: Performed By: #### 1 [id number] #### [facility] [address] [place] [address] Urea nitrogen/Creatinine mass ratio 20 mg/mg Normal 5-25 [facility] Comment on above: Performed By: #### 1 [id number] #### [facility] [address] [place] [address] CBC With Differentialon 02-2 Basophils #/vol (Bld) 0.07 10*3/uL Normal 0.01-0.07 [facility] Comment on above: Performed By: #### U ARFX #### [facility] [address] [place] [address] Basophils/100 WBC (Bld) 0.8 % Normal 0.1-1.2 [facility] Comment on above: Performed By: #### U ARFX #### [facility] [address] [place] [address] Eosinophils #/vol (Bld) 0.21 10*3/uL Normal 0.04-0.50 [facility] Comment on above: Performed By: #### U ARFX #### [facility] [address] [place] [address] Eosinophils/100 WBC (Bld) 2.5 % Normal 0.0-8.1 [facility] Comment on above: Performed By: #### U ARFX #### [facility] [address] [place] [address] Erythrocyte distribution width Ratio (RBC) 13.3 % Normal 12.0-15.4 [facility] Comment on above: Performed By: #### U ARFX #### [facility] [address] [place] [address] Hematocrit Volume Fraction (Bld) 40.0 % Normal 36.5-46.6 [facility] Comment on above: Performed By: #### U ARFX #### [facility] [address] [place] [address] Hemoglobin mass conc (Bld) 12.9 g/dL Normal 11.8-15.3 [facility] Comment on above: Performed By: #### U ARFX #### [facility] [address] [place], [place] [id number] Imm Grans Absolute 0.01 10*3/uL Normal 0.00-0.21 [facility] Comment on above: Performed By: #### U ARFX #### [facility] [address] [place] [address] Immature granulocytes #/vol (Bld) 0.1 % Normal [facility] Comment on above: Performed By: #### U ARFX #### [facility] [address] [place] [address] Lymphocytes #/vol (Bld) 2.43 10*3/uL Normal 0.40-2.84 [facility] Comment on above: Performed By: #### U ARFX #### [facility] [address] [place] [address] Lymphocytes/100 WBC (Bld) 28.4 % Normal 15.7-50.5 [facility] Comment on above: Performed By: #### U ARFX #### [facility] [address] [place] [address] MCH Entitic mass (RBC) 26.1 pg Low 27.5-33.0 [facility] Comment on above: Performed By: #### U ARFX #### [facility] [address] [place], [place] [address] MCHC mass conc (RBC) 32.3 g/dL Normal 30.1-35.0 [facility] Comment on above: Performed By: #### U ARFX #### [facility] [address] [place] [address] MCV Entitic volume (RBC) 80.8 fL Low 85.4-100.0 [facility] Comment on above: Performed By: #### U ARFX #### [facility] [address] [place] [address] Monocytes #/vol (Bld) 0.59 10*3/uL Normal 0.25-0.83 [facility] Comment on above: Performed By: #### U ARFX #### [facility] [address] [place] [address] Monocytes/100 WBC (Bld) 6.9 % Normal 4.8-12.7 [facility] Comment on above: Performed By: #### U ARFX #### [facility] [address] [place] [address] Neutrophils Absolute 5.26 10*3/uL Normal 1.95-6.85 [facility] Comment on above: Result Comment: Revi ewed by tech, consistent with instrument results. Performed By: #### U ARFX #### [facility] [address] [place] [address] Neutrophils/100 WBC (Bld) 61.3 % Normal 36.8-73.2 [facility] Comment on above: Performed By: #### U ARFX #### [facility] [address] [place] [address] NRBC Absolute 0.00 10*3/uL Normal [facility] Comment on above: Performed By: #### U ARFX #### [facility] [address] [place] [address] NRBC Automated 0.0 /100{WBCs} Normal [facility] Comment on above: Performed By: #### U ARFX #### [facility] [address] [place] [address] Platelet mean volume Entitic volume (Bld) 9.6 fL Low 9.9-12.1 [facility] Comment on above: Performed By: #### U ARFX #### [facility] [address] [place] [address] Platelets #/vol (Bld) 308 10*3/uL Normal 155-404 [facility] Comment on above: Result Comment: Plat elet count confirmed by smear review. Performed By: #### U ARFX #### [facility] [address] [place] [address] RBC #/vol (Bld) 4.95 10*6/uL Normal 3.85-5.10 [facility] Comment on above: Performed By: #### U ARFX #### [facility] [address] [place] [address] RDW SD 38.6 fL Low 39.3-48.6 [facility] Comment on above: Performed By: #### U ARFX #### [facility] [address] [place] [address] WBC #/vol (Bld) 8.6 10*3/uL Normal 4.4-9.9 [facility] Comment on above: Performed By: #### U ARFX #### [facility] [address] [place] [address] Culture, Urine Bacterialon 0 08-26-2018 Culture, Urine Bacterial BILL#: [id number] : 75 AGE: SEX: F SOURCE: COLLECTED: 08/26/18 10:08 ANTIBIOTICS AT [facility].: RECEIVED : 08/26/18 21:25 SITE: SAME SOURCE R E S U L T S URINE CULTURE,BACTERIAL FINAL 08/27/18 13:44 MIXED URETHRAL LUCIA. Normal [facility] Comment on above: Performed By: #### U ARFX #### [facility] [address] [place] [address] Test (Serum)on Test, Serum Negative Normal [facility] Comment on above: Performed By: #### 3 [id number] #### [facility] [address] [place] [address] Urinalysison 08-26-2018 Appearance Nom (U) Cloudy Normal Clear [facility] Comment on above: Performed By: #### U ARFX #### [facility] [address] [place] [address] Ascorbic Acid Negative Normal Negative [facility] Comment on above: Performed By: #### U ARFX #### [facility] [address] [place] [address] Automated Urine Microscopy Performed Normal [facility] Comment on above: Performed By: #### U ARFX #### [facility] [address] [place] [address] Bacteria LM.HPF #/area (Urine sed) Many Normal None [facility] Comment on above: Performed By: #### U ARFX #### [facility] [address] [place] [address] Bilirubin mass conc Negative Normal Negative [facility] Comment on above: Performed By: #### U ARFX #### [facility] [address] [place] [address] Blood Large Abnormal Negative [facility] Comment on above: Performed By: #### U ARFX #### [facility] [address] [place] [address] Color Nom (U) Yellow Normal [facility] Comment on above: Performed By: #### U ARFX #### [facility] [address] [place] [address] Glucose mass conc Negative Normal Negative [facility] Comment on above: Performed By: #### U ARFX #### [facility] [address] [place] [address] Hyaline Cast 12 /[LPF] Normal None [facility] Comment on above: Performed By: #### U ARFX #### [facility] [address] [place] [address] Ketones Ql (U) Negative Normal Negative [facility] Comment on above: Performed By: #### U ARFX #### [facility] [address] [place] [address] Leukocytes Esterase Small Abnormal Negative [facility] Comment on above: Performed By: #### U ARFX #### [facility] [address] [place] [address] Mucous Many Normal None [facility] Comment on above: Performed By: #### U ARFX #### [facility] [address] [place] [address] Nitrite Ql (U) Negative Normal Negative [facility] Comment on above: Performed By: #### U ARFX #### [facility] [address] [place] [address] pH (Bld) 5.0 Normal 5.0-9.0 [facility] Comment on above: Performed By: #### U ARFX #### [facility] [address] [place] [address] Protein mass conc (U) 30 mg/dL Abnormal Negative [facility] Comment on above: Performed By: #### U ARFX #### [facility] [address] [place] [address] RBC 421 /[HPF] Normal 0-3 [facility] Comment on above: Performed By: #### U ARFX #### [facility] [address] [place] [address] Specific gravity Relative Density (U) 1.023 Normal 1.003-1.03 5 [facility] Comment on above: Performed By: #### U ARFX #### [facility] [address] [place] [address] Squamous Epithelial Cells 21 /[HPF] Normal 0-5 [facility] Comment on above: Performed By: #### U ARFX #### [facility] [address] [place] [address] Urobilinogen Qn (U) <2.0 Normal Negative [facility] Comment on above: Result Comment: Due to a manufacturing issue, low positive urobilinogen results may be falsely positive. Correlate with urine bilirubin and additional clinical/laboratory findings to assess the risk of hemolytic anemia or liver disease. If clinically indicated, repeat testing with an alternate method is available by contacting the laboratory within 24 hours. Performed By: #### U ARFX #### [facility] [address] [place] [address] WBC 6 /[HPF] Normal 0-5 [facility] Comment on above: Performed By: #### U ARFX #### [facility] [address] [place] [address] Amylaseon 10-15-2017 Amylase enzyme act/vol 26 U/L Normal 12-94 [facility] Comment on above: Performed By: #### 1 [id number] #### [facility] [address] [place] [address] CBC With Differentialon 09-27 Basophils #/vol (Bld) 0.04 10*3/uL Normal 0.01-0.07 [facility] Comment on above: Performed By: #### 2 [id number] #### [facility] [address] [place] [address] Basophils/100 WBC (Bld) 0.5 % Normal 0.1-1.2 [facility] Comment on above: Performed By: #### 2 [id number] #### [facility] [address] [place] [address] Eosinophils #/vol (Bld) 0.13 10*3/uL Normal 0.04-0.50 [facility] Comment on above: Performed By: #### 2 [id number] #### [facility] [address] [place] [address] Eosinophils/100 WBC (Bld) 1.6 % Normal 0.0-8.1 [facility] Comment on above: Performed By: #### 2 [id number] #### [facility] [address] [place] [address] Erythrocyte distribution width Ratio (RBC) 12.5 % Normal 12.0-15.4 [facility] Comment on above: Performed By: #### 2 [id number] #### [facility] [address] [place] [address] Hematocrit Volume Fraction (Bld) 41.7 % Normal 36.5-46.6 [facility] Comment on above: Performed By: #### 2 [id number] #### [facility] [address] [place] [address] Hemoglobin mass conc (Bld) 14.6 g/dL Normal 11.8-15.3 [facility] Comment on above: Performed By: #### 2 [id number] #### [facility] [address] [place] [address] Imm Grans Absolute 0.02 10*3/uL Normal 0.00-0.21 [facility] Comment on above: Performed By: #### 2 [id number] #### [facility] [address] [place] [address] Immature granulocytes #/vol (Bld) 0.2 % Normal [facility] Comment on above: Performed By: #### 2 [id number] #### [facility] [address] [place] [address] Lymphocytes #/vol (Bld) 1.75 10*3/uL Normal 0.40-2.84 [facility] Comment on above: Performed By: #### 2 [id number] #### [facility] [address] [place] [address] Lymphocytes/100 WBC (Bld) 21.6 % Normal 15.7-50.5 [facility] Comment on above: Performed By: #### 2 [id number] #### [facility] [address] [place] [address] MCH Entitic mass (RBC) 29.4 pg Normal 27.5-33.0 [facility] Comment on above: Performed By: #### 2 [id number] #### [facility] [address] [place] [address] MCHC mass conc (RBC) 35.0 g/dL Normal 30.1-35.0 [facility] Comment on above: Performed By: #### 2 [id number] #### [facility] [address] [place] [address] MCV Entitic volume (RBC) 84.1 fL Low 85.4-100.0 [facility] Comment on above: Performed By: #### 2 [id number] #### [facility] [address] [place] [address] Monocytes #/vol (Bld) 0.50 10*3/uL Normal 0.25-0.83 [facility] Comment on above: Performed By: #### 2 [id number] #### [facility] [address] [place] [address] Monocytes/100 WBC (Bld) 6.2 % Normal 4.8-12.7 [facility] Comment on above: Performed By: #### 2 [id number] #### [facility] [address] [place] [address] Neutrophils Absolute 5.66 10*3/uL Normal 1.95-6.85 [facility] Comment on above: Performed By: #### 2 [id number] #### [facility] [address] [place] [address] Neutrophils/100 WBC (Bld) 69.9 % Normal 36.8-73.2 [facility] Comment on above: Performed By: #### 2 [id number] #### [facility] [address] [place] [address] NRBC Absolute 0.00 10*3/uL Normal [facility] Comment on above: Performed By: #### 2 [id number] #### [facility] [address] [place] [address] NRBC Automated 0.0 /100{WBCs} Normal [facility] Comment on above: Performed By: #### 2 [id number] #### [facility] [address] [place] [address] Platelet mean volume Entitic volume (Bld) 9.2 fL Low 9.9-12.1 [facility] Comment on above: Performed By: #### 2 [id number] #### [facility] [address] [place] [address] Platelets #/vol (Bld) 299 10*3/uL Normal 155-404 [facility] Comment on above: Performed By: #### 2 [id number] #### [facility] [address] [place] [address] RBC #/vol (Bld) 4.96 10*6/uL Normal 3.85-5.10 [facility] Comment on above: Performed By: #### 2 [id number] #### [facility] [address] [place] [address] RDW SD 37.2 fL Low 39.3-48.6 [facility] Comment on above: Performed By: #### 2 [id number] #### [facility] [address] [place] [address] WBC #/vol (Bld) 8.1 10*3/uL Normal 4.4-9.9 [facility] Comment on above: Performed By: #### 2 [id number] #### [facility] [address] [place] [address] CT ABDOMEN/PELVIS W/O CONTRA Joyce 10-15-2017 CT ABDOMEN/PELVIS W/O CONTRAST DATE OF EXAM: Oct 15 2017 12:54PM CLINICAL HISTORY/ Patient Name: GISEL CARLTON STUDY: CT ABDOMEN/PELVIS W/O CONTRAST; 10/15/2017 12:54 pm INDICATION: . Left flank pain COMPARISON: 12/09/2016 ACCESSION NUMBER(S): [id number] ORDERING CLINICIAN: SENA DING TECHNIQUE: Helical CT imaging of the abdomen and pelvis was performed without oral or intravenous contrast. FINDINGS: LOWER CHEST: The visualized lung bases and lower mediastinum are unremarkable. ABDOMEN: Evaluation of the solid organs is limited secondary to the lack of IV contrast. LIVER: Unremarkable. GALLBLADDER: Status post cholecystectomy. BILE DUCTS: No intra or extrahepatic biliary ductal dilatation. SPLEEN: Unremarkable. PANCREAS: Unremarkable. ADRENALS: Unremarkable. KIDNEYS and URETERS: Punctate calculus in the upper pole of the right kidney. No calculi in the left kidney. There are no calculi along the course of the ureters. There is no hydronephrosis or hydroureter. BOWEL and ABDOMINAL WALL and LYMPH NODES: The stomach is unremarkable. The small bowel and colon are normal in course and caliber. The appendix is within normal limits. There is no intraabdominal free fluid or adenopathy by imaging size criteria. The abdominal wall is intact. VESSELS: The unenhanced vessels are grossly unremarkable. PELVIS: REPRODUCTIVE ORGANS and BLADDER: Status post hysterectomy. No pelvic mass. There is no pelvic free fluid. BONES: No suspicious osseous lesion is identified. CONCLUSION: IMPRESSION: 1. It punctate nonobstructing calculus in the upper pole of the right kidney. No hydronephrosis or hydroureter bilaterally. 2. Normal appendix. No bowel obstruction. No diverticulitis. Normal [facility] Comprehensive Metabolic Pane ben 10-15-2017 Albumin mass conc 4.4 g/dL Normal 3.4-5.0 [facility] Comment on above: Performed By: #### 1 [id number] #### [facility] [address] [place] [address] Albumin/Globulin mass ratio 1.3 {ratio} Normal 0.9-2.4 [facility] Comment on above: Performed By: #### 1 [id number] #### [facility] [address] [place] [address] ALP enzyme act/vol 102 U/L Normal 45-117 [facility] Comment on above: Performed By: #### 1 [id number] #### [facility] [address] [place] [address] ALT enzyme act/vol 16 U/L Normal 7-45 [facility] Comment on above: Performed By: #### 1 [id number] #### [facility] [address] [place] [address] Anion gap molar conc 15 mmol/L Normal 10-20 [facility] Comment on above: Performed By: #### 1 [id number] #### [facility] [address] [place] [address] AST enzyme act/vol 13 U/L Normal 13-39 [facility] Comment on above: Performed By: #### 1 [id number] #### [facility] [address] [place] [address] Bilirubin mass conc 0.4 mg/dL Normal 0.0-1.2 [facility] Comment on above: Performed By: #### 1 [id number] #### [facility] [address] [place] [address] Calcium mass conc 9.9 mg/dL Normal 8.6-10.3 [facility] Comment on above: Performed By: #### 1 [id number] #### [facility] [address] [place] [address] Chloride molar conc 100 mmol/L Normal 98-107 [facility] Comment on above: Performed By: #### 1 [id number] #### [facility] [address] [place] [address] Creatinine mass conc 0.68 mg/dL Normal 0.50-1.05 [facility] Comment on above: Performed By: #### 1 [id number] #### [facility] [address] [place] [address] GFR/1.73 sq M.predicted MDRD vol rate/area mL/min/{1.73_m2} Normal [facility] Comment on above: Result Comment: Inte rpretation for Chronic Kidney Disease: Stages 1&2 >60 Healthy or potential kidney damage. Mild decrease of GFR. Stage 3 30-59 Moderate decrease of GFR. Stage 4 15-29 Severe decrease of GFR. Stage 5 <15 Kidney failure or on dialysis. Performed By: #### 1 [id number] #### [facility] [address] [place] [address] Glucose mass conc 356 mg/dL High 70-100 [facility] Comment on above: Performed By: #### 1 [id number] #### [facility] [address] [place] [address] HCO3 molar conc (Bld) 24 mmol/L Normal 21-32 [facility] Comment on above: Performed By: #### 1 [id number] #### [facility] [address] [place] [address] Potassium molar conc 4.0 mmol/L Normal 3.5-5.1 [facility] Comment on above: Performed By: #### 1 [id number] #### [facility] [address] [place] [address] Protein mass conc 7.9 g/dL Normal 6.4-8.2 [facility] Comment on above: Performed By: #### 1 [id number] #### [facility] [address] [place] [address] Sodium molar conc 135 mmol/L Low 136-145 [facility] Comment on above: Performed By: #### 1 [id number] #### [facility] [address] [place] [address] Urea nitrogen mass conc 12 mg/dL Normal 6-23 [facility] Comment on above: Performed By: #### 1 [id number] #### [facility] [address] [place] [address] Urea nitrogen/Creatinine mass ratio 18 mg/mg Normal 5-25 [facility] Comment on above: Performed By: #### 1 [id number] #### [facility] [address] [place] [address] Culture, Urine Bacterialon 0 10-15-2017 Culture, Urine Bacterial BILL#: [id number] : 75 AGE: SEX: Kamryn PIERCE SOURCE: URINE COLLECTED: 10/15/17 11:33 ANTIBIOTICS AT [facility].: RECEIVED : 10/15/17 17:57 SITE: Unspecified R E S U L T S URINE CULTURE,BACTERIAL FINAL 10/16/17 11:48 MULTIPLE ORGANISMS PRESENT, PROBABLE CONTAMINATION PLEASE REPEAT CULTURE. Normal [facility] Comment on above: Performed By: #### C XBUR #### [facility] [address] [place] [address] Lipaseon 10-15-2017 Lipase enzyme act/vol 20 U/L Normal [facility] Comment on above: Performed By: #### 1 [id number] #### [facility] [address] [place] [address] Test (Serum)on Test, Serum Negative Normal [facility] Comment on above: Performed By: #### 3 [id number] #### [facility] [address] [place] [address] Urinalysis with Reflex Cultu reon 10-15-2017 Appearance Nom (U) Hazy Normal Clear [facility] Comment on above: Performed By: #### U ARFX #### [facility] [address] [place] [address] Ascorbic Acid Negative Normal Negative [facility] Comment on above: Performed By: #### U ARFX #### [facility] [address] [place] [address] Automated Urine Microscopy Performed Normal [facility] Comment on above: Performed By: #### U ARFX #### [facility] [address] [place] [address] Bilirubin mass conc Negative Normal Negative [facility] Comment on above: Performed By: #### U ARFX #### [facility] [address] [place] [address] Blood Large Abnormal Negative [facility] Comment on above: Performed By: #### U ARFX #### [facility] [address] [place] [address] Budding Yeast Occasional Normal None [facility] Comment on above: Performed By: #### U ARFX #### [facility] [address] [place] [address] Color Nom (U) Yellow Normal [facility] Comment on above: Performed By: #### U ARFX #### [facility] [address] [place] [address] Glucose mass conc >=500 Abnormal Negative [facility] Comment on above: Performed By: #### U ARFX #### [facility] [address] [place] [address] Ketones Ql (U) 5 mg/dL Abnormal Negative [facility] Comment on above: Performed By: #### U ARFX #### [facility] [address] [place] [address] Leukocytes Esterase Moderate Abnormal Negative [facility] Comment on above: Performed By: #### U ARFX #### [facility] [address] [place] [address] Nitrite Ql (U) Negative Normal Negative [facility] Comment on above: Performed By: #### U ARFX #### [facility] [address] [place] [address] pH (Bld) 8.0 Normal 5.0-9.0 [facility] Comment on above: Performed By: #### U ARFX #### [facility] [address] [place] [address] Protein mass conc (U) Negative Normal Negative [facility] Comment on above: Performed By: #### U ARFX #### [facility] [address] [place] [address] RBC 91 /[HPF] Normal 0-3 [facility] Comment on above: Performed By: #### U ARFX #### [facility] [address] [place] [address] Specific gravity Relative Density (U) 1.032 Normal 1.003-1.03 5 [facility] Comment on above: Performed By: #### U ARFX #### [facility] [address] [place] [address] Squamous Epithelial Cells 14 /[HPF] Normal 0-5 [facility] Comment on above: Performed By: #### U ARFX #### [facility] [address] [place] [address] Urobilinogen Qn (U) <2.0 Normal Negative [facility] Comment on above: Performed By: #### U ARFX #### [facility] [address] [place] [address] WBC 78 /[HPF] Normal 0-5 [facility] Comment on above: Performed By: #### U ARFX #### [facility] [address] [place] [address] Vital Signs Date Time Vital Sign Value Performing Clinician Facility 07-12-2023 06:21-0500 Promise to Return Kaylinn Dokken [facility] 07-12-2023 04:54-0500 Promise to Return Kaylinn Dokken [facility] 07-12-2023 04:01-0500 Diastolic blood pressure 82 mm[Hg] Kaylinn Dokken [facility] 07-12-2023 04:01-0500 Heart rate 113 /min Kaylinn Dokken [facility] 07-12-2023 04:01-0500 Hourly Rounding Kaylinn Dokken [facility] 07-12-2023 04:01-0500 Mean blood pressure 99 mm[Hg] Kaylinn Dokken [facility] 07-12-2023 04:01-0500 Promise to Return Kaylinn Dokken [facility] 07-12-2023 04:01-0500 Respiratory rate 12 /min Kaylinn Dokken [facility] 07-12-2023 04:01-0500 SaO2% (BldA) [Mass fraction] 92 % Kaylinn Dokken [facility] 07-12-2023 04:01-0500 Systolic blood pressure 134 mm[Hg] Kaylinn Dokken [facility] 07-12-2023 03:00-0500 Diastolic blood pressure 78 mm[Hg] Kaylinn Dokken [facility] 07-12-2023 03:00-0500 Heart rate 99 /min Kaylinn Dokken [facility] 07-12-2023 03:00-0500 Hourly Rounding Kaylinn Dokken [facility] 07-12-2023 03:00-0500 Mean blood pressure 98 mm[Hg] Kaylinn Dokken [facility] 07-12-2023 03:00-0500 SaO2% (BldA) [Mass fraction] 95 % Kaylinn Dokken [facility] 07-12-2023 03:00-0500 Systolic blood pressure 139 mm[Hg] Kaylinn Dokken [facility] 07-12-2023 02:22-0500 Diastolic blood pressure 74 mm[Hg] Kaylinn Dokken [facility] 07-12-2023 02:22-0500 Heart rate 101 /min Kaylinn Dokken [facility] 07-12-2023 02:22-0500 Hourly Rounding Kaylinn Dokken [facility] 07-12-2023 02:22-0500 Mean blood pressure 94 mm[Hg] Kaylinn Dokken [facility] 07-12-2023 02:22-0500 Respiratory rate 11 /min Kaylinn Dokken [facility] 07-12-2023 02:22-0500 SaO2% (BldA) [Mass fraction] 92 % Kaylinn Dokken [facility] 07-12-2023 02:22-0500 Systolic blood pressure 134 mm[Hg] Kaylinn Dokken [facility] 07-11-2023 23:51-0500 gluc 411 mg/dL Kaylinn Dokken [facility] 07-11-2023 23:24-0500 Respiratory rate 16 /min Kaylinn Dokken [facility] 07-11-2023 22:07-0500 Body temperature 98.06 [degF] Kaylinn Dokken [facility] 07-11-2023 22:07-0500 Heart rate 88 /min Kaylinn Dokken [facility] 07-11-2023 22:07-0500 Respiratory rate 16 /min Kaylinn Dokken [facility] 07-11-2023 21:12-0500 Body temperature 98.78 [degF] Kaylinn Dokken [facility] 07-11-2023 21:12-0500 Heart rate 125 /min Kaylinn Dokken [facility] 07-11-2023 21:12-0500 Respiratory rate 20 /min Kaylinn Dokken [facility] 07-09-2023 11:05-0500 Respiratory rate 18 /min Yoly Bro MD Work Phone: [facility] 07-09-2023 10:40-0500 Diastolic blood pressure 76 mm[Hg] Yoly Bro MD Work Phone: [facility] 07-09-2023 10:40-0500 Heart rate 96 /min Yoly Bro MD Work Phone: [facility] 07-09-2023 10:40-0500 SaO2% (BldA) [Mass fraction] 96 % Yoly Bro MD Work Phone: [facility] 07-09-2023 10:40-0500 Systolic blood pressure 118 mm[Hg] Yoly Bro MD Work Phone: [facility] 07-09-2023 07:14-0500 Body temperature 97.7 [degF] Yoly Bro MD Work Phone: [facility] 07-08-2023 08:33-0500 Diastolic blood pressure 70 mm[Hg] CERTIFIED PROSTHETIST VICE PRESIDENT Skye Jones Work Phone: [facility] 07-08-2023 08:33-0500 Heart rate 130 /min CERTIFIED PROSTHETIST VICE PRESIDENT Skye Jones Work Phone: [facility] 07-08-2023 08:33-0500 Inhaled oxygen flow rate 2 L/min CERTIFIED PROSTHETIST VICE PRESIDENT Skye Jones Work Phone: [facility] 07-08-2023 08:33-0500 Respiratory rate 20 /min CERTIFIED PROSTHETIST VICE PRESIDENT Skye Jones Work Phone: [facility] 07-08-2023 08:33-0500 SaO2% (BldA) [Mass fraction] 94 % CERTIFIED PROSTHETIST VICE PRESIDENT Skye Jones Work Phone: [facility] 07-08-2023 08:33-0500 Systolic blood pressure 147 mm[Hg] CERTIFIED PROSTHETIST VICE PRESIDENT Skye Jones Work Phone: [facility] 07-07-2023 16:17-0500 Body temperature 97.5 [degF] PEE Jones Work Phone: [facility] 07-07-2023 14:46-0500 Body height 170.18 cm CERTIFIED PROSTHETIST VICE PRESIDENTAdrien Jones Work Phone: [facility] 07-07-2023 14:46-0500 Body weight 124.9 kg CERTIFIED PROSTHETIST VICE PRESIDENTAdrien Jones Work Phone: [facility] 07-01-2023 14:15-0500 Body temperature 97.9 [degF] Ruben Abdi MD [facility] Phone[facility] 07-01-2023 14:15-0500 Diastolic blood pressure 64 mm[Hg] Ruben Abdi MD Work Phone: [facility] 07-01-2023 14:15-0500 Heart rate 94 /min Ruben Abdi MD Work Phone: [facility] 07-01-2023 14:15-0500 Respiratory rate 16 /min Ruben Abdi MD Work Phone: [facility] 07-01-2023 14:15-0500 SaO2% (BldA) [Mass fraction] 92 % Ruben Abdi MD Work Phone: [facility] 07-01-2023 14:15-0500 Systolic blood pressure 103 mm[Hg] Ruben Abdi MD Work Phone: [facility] 06-30-2023 10:55-0500 Body height 170.2 cm Ruben Abdi MD Work Phone: [facility] 06-30-2023 10:55-0500 Body mass index (BMI) [Ratio] 42.29 kg/m2 Ruben Abdi MD Work Phone: [facility] 06-30-2023 10:55-0500 Body weight 122.47 kg Ruben Abdi MD Work Phone: [facility] 06-07-2023 05:00-0500 Diastolic blood pressure 90 mm[Hg] [facility] 06-07-2023 05:00-0500 Heart rate 111 /min [facility] 06-07-2023 05:00-0500 Mean blood pressure 105 mm[Hg] [facility] 06-07-2023 05:00-0500 Respiratory rate 14 /min [facility] 06-07-2023 05:00-0500 SaO2% (BldA) [Mass fraction] 94 % [facility] 06-07-2023 05:00-0500 Systolic blood pressure 136 mm[Hg] [facility] 06-07-2023 04:30-0500 Diastolic blood pressure 84 mm[Hg] [facility] 06-07-2023 04:30-0500 Heart rate 110 /min [facility] 06-07-2023 04:30-0500 Mean blood pressure 98 mm[Hg] [facility] 06-07-2023 04:30-0500 Respiratory rate 12 /min [facility] 06-07-2023 04:30-0500 SaO2% (BldA) [Mass fraction] 96 % [facility] 06-07-2023 04:30-0500 Systolic blood pressure 126 mm[Hg] [facility] 06-07-2023 04:00-0500 Diastolic blood pressure 64 mm[Hg] [facility] 06-07-2023 04:00-0500 Heart rate 112 /min [facility] 06-07-2023 04:00-0500 Mean blood pressure 81 mm[Hg] [facility] 06-07-2023 04:00-0500 Respiratory rate 16 /min [facility] 06-07-2023 04:00-0500 Systolic blood pressure 116 mm[Hg] [facility] 06-07-2023 03:25-0500 Heart rate 116 /min [facility] 06-06-2023 23:28-0500 Heart rate 120 /min [facility] 06-06-2023 23:28-0500 Respiratory rate 20 /min [facility] 06-06-2023 22:25-0500 Body temperature 98.24 [degF] [facility] 06-06-2023 22:25-0500 Heart rate 133 /min [facility] 06-06-2023 22:25-0500 Respiratory rate 20 /min [facility] 04-21-2023 16:05-0400 Body height Monica Ordaz Other [employer] Other 04-21-2023 16:05-0400 Body mass index (BMI) [Ratio] 44.54 kg/m2 Monica Paredesney Other [employer] Other 04-21-2023 16:05-0400 Body temperature 97.7 [degF] Monica Carrasquilloarney Other [employer] Other 04-21-2023 16:05-0400 Body weight 125.19 kg Monica Carrasquilloarney Other [employer] Other 04-21-2023 16:05-0400 Respiratory rate 18 /min Monica Paredesney Other [employer] Other 04-21-2023 16:05-0400 SaO2% (BldA) [Mass fraction] 98 % Monica Carrasquilloarney Other [employer] Other 04-03-2023 15:10-0400 Body temperature 97.6 [degF] CERTIFIED PROSTHETIST VICE PRESIDENT Skye Jones Work Phone: [facility] 04-03-2023 15:10-0400 Respiratory rate 16 /min CERTIFIED PROSTHETIST VICE PRESIDENT Skye Jones Work Phone: [facility] 04-03-2023 15:10-0400 SaO2% (BldA) [Mass fraction] 95 % CERTIFIED PROSTHETIST VICE PRESIDENT Skye Jones Work Phone: [facility] 04-03-2023 07:30-0400 Diastolic blood pressure 98 mm[Hg] CERTIFIED PROSTHETIST VICE PRESIDENT Skye Jones Work Phone: [facility] 04-03-2023 07:30-0400 Heart rate 62 /min CERTIFIED PROSTHETIST VICE PRESIDENT Skye Jones Work Phone: [facility] 04-03-2023 07:30-0400 Systolic blood pressure 149 mm[Hg] CERTIFIED PROSTHETIST VICE PRESIDENT Skye Jones Work Phone: [facility] 03-30-2023 14:52-0400 Body height 170.18 cm CERTIFIED PROSTHETIST VICE PRESIDENT Skye Jones Work Phone: [facility] 03-30-2023 09:00-0400 Body weight 117.02 kg CERTIFIED PROSTHETIST VICE PRESIDENT Skye Jones Work Phone: [facility] 02-01-2023 07:30-0400 Body temperature 98 [degF] CERTIFIED PROSTHETIST VICE PRESIDENT Skye Jones Work Phone: [facility] 02-01-2023 07:30-0400 Diastolic blood pressure 90 mm[Hg] CERTIFIED PROSTHETIST VICE PRESIDENT Skye Jones Work Phone: [facility] 02-01-2023 07:30-0400 Heart rate 91 /min CERTIFIED PROSTHETIST VICE PRESIDENT Skye Jones Work Phone: [facility] 02-01-2023 07:30-0400 Respiratory rate 16 /min CERTIFIED PROSTHETIST VICE PRESIDENT Skye Jones Work Phone: [facility] 02-01-2023 07:30-0400 SaO2% (BldA) [Mass fraction] 93 % CERTIFIED PROSTHETIST VICE PRESIDENT Skye Jones Work Phone: [facility] 02-01-2023 07:30-0400 Systolic blood pressure 134 mm[Hg] CERTIFIED PROSTHETIST VICE PRESIDENT Skye Jones Work Phone: [facility] 01-29-2023 15:41-0400 Body height 170.18 cm CERTIFIED PROSTHETIST VICE PRESIDENT Skye Jones Work Phone: [facility] 01-29-2023 02:43-0400 Body weight 122.46 kg CERTIFIED PROSTHETIST VICE PRESIDENT Skye Jones Work Phone: [facility] 01-29-2023 00:42-0400 Diastolic blood pressure 69 mm[Hg] CERTIFIED PROSTHETIST VICE PRESIDENT Skye Jones Work Phone: [facility] 01-29-2023 00:42-0400 Heart rate 97 /min CERTIFIED PROSTHETIST VICE PRESIDENT Skye Jones Work Phone: [facility] 01-29-2023 00:42-0400 Respiratory rate 19 /min CERTIFIED PROSTHETIST VICE PRESIDENT Skye Jones Work Phone: [facility] 01-29-2023 00:42-0400 SaO2% (BldA) [Mass fraction] 96 % CERTIFIED PROSTHETIST VICE PRESIDENT Skye Jones Work Phone: [facility] 01-29-2023 00:42-0400 Systolic blood pressure 124 mm[Hg] CERTIFIED PROSTHETIST VICE PRESIDENT Skye Jones Work Phone: [facility] 01-28-2023 22:04-0400 Body temperature 97.7 [degF] CERTIFIED PROSTHETIST VICE PRESIDENT Skye Jones Work Phone: [facility] 01-28-2023 20:06-0400 Body height 170.18 cm CERTIFIED PROSTHETIST VICE PRESIDENT Skye Jones Work Phone: [facility] 01-28-2023 20:06-0400 Body weight 122.46 kg CERTIFIED PROSTHETIST VICE PRESIDENT Skye Jones Work Phone: [facility] 01-26-2023 21:20-0400 Diastolic blood pressure 84 mm[Hg] [facility] 01-26-2023 21:20-0400 Heart rate 94 /min [facility] 01-26-2023 21:20-0400 Hourly Rounding [facility] 01-26-2023 21:20-0400 Promise to Return [facility] 01-26-2023 21:20-0400 Respiratory rate 16 /min [facility] 01-26-2023 21:20-0400 SaO2% (BldA) [Mass fraction] 98 % [facility] 01-26-2023 21:20-0400 Systolic blood pressure 131 mm[Hg] [facility] 01-26-2023 20:20-0400 Diastolic blood pressure 79 mm[Hg] [facility] 01-26-2023 20:20-0400 Heart rate 98 /min [facility] 01-26-2023 20:20-0400 Hourly Rounding [facility] 01-26-2023 20:20-0400 Mean blood pressure 95 mm[Hg] [facility] 01-26-2023 20:20-0400 Promise to Return [facility] 01-26-2023 20:20-0400 Respiratory rate 16 /min [facility] 01-26-2023 20:20-0400 SaO2% (BldA) [Mass fraction] 98 % [facility] 01-26-2023 20:20-0400 Systolic blood pressure 128 mm[Hg] [facility] 01-26-2023 19:21-0400 Body temperature 98.24 [degF] [facility] 01-26-2023 19:21-0400 Diastolic blood pressure 81 mm[Hg] [facility] 01-26-2023 19:21-0400 Heart rate 114 /min [facility] 01-26-2023 19:21-0400 Respiratory rate 16 /min [facility] 01-26-2023 19:21-0400 SaO2% (BldA) [Mass fraction] 98 % [facility] 01-26-2023 19:21-0400 Systolic blood pressure 130 mm[Hg] [facility] 01-22-2023 07:27-0400 Body temperature 97.3 [degF] CERTIFIED PROSTHETIST VICE PRESIDENT Skye Jones Work Phone: [facility] 01-22-2023 07:27-0400 Diastolic blood pressure 97 mm[Hg] CERTIFIED PROSTHETIST VICE PRESIDENT Skye Jones Work Phone: [facility] 01-22-2023 07:27-0400 Heart rate 89 /min CERTIFIED PROSTHETIST VICE PRESIDENT Skye Jones Work Phone: [facility] 01-22-2023 07:27-0400 Respiratory rate 16 /min CERTIFIED PROSTHETIST VICE PRESIDENT Skye Jones Work Phone: [facility] 01-22-2023 07:27-0400 SaO2% (BldA) [Mass fraction] 95 % CERTIFIED PROSTHETIST VICE PRESIDENT Skye Jones Work Phone: [facility] 01-22-2023 07:27-0400 Systolic blood pressure 150 mm[Hg] CERTIFIED PROSTHETIST VICE PRESIDENT Skye Jones Work Phone: [facility] 01-19-2023 14:59-0400 Body height 170.18 cm CERTIFIED PROSTHETIST VICE PRESIDENT Skye Jones Work Phone: [facility] 01-19-2023 09:00-0400 Body weight 121.56 kg CERTIFIED PROSTHETIST VICE PRESIDENT Skye Jones Work Phone: [facility] 01-03-2023 07:30-0400 Body temperature 97.9 [degF] CERTIFIED PROSTHETIST VICE PRESIDENT Skye Jones Work Phone: [facility] 01-03-2023 07:30-0400 Diastolic blood pressure 85 mm[Hg] CERTIFIED PROSTHETIST VICE PRESIDENT Skye Jones Work Phone: [facility] 01-03-2023 07:30-0400 Heart rate 90 /min CERTIFIED PROSTHETIST VICE PRESIDENT Skye Jones Work Phone: [facility] 01-03-2023 07:30-0400 Respiratory rate 18 /min CERTIFIED PROSTHETIST VICE PRESIDENT Skye Jones Work Phone: [facility] 01-03-2023 07:30-0400 SaO2% (BldA) [Mass fraction] 94 % CERTIFIED PROSTHETIST VICE PRESIDENT Skye Jones Work Phone: [facility] 01-03-2023 07:30-0400 Systolic blood pressure 124 mm[Hg] CERTIFIED PROSTHETIST VICE PRESIDENT Skye Jones Work Phone: [facility] 12-31-2022 13:56-0400 Body height 170.18 cm CERTIFIED PROSTHETIST VICE PRESIDENT Skye Jones Work Phone: [facility] 12-31-2022 03:36-0400 Body weight 123.15 kg CERTIFIED PROSTHETIST VICE PRESIDENT Skye Jones Work Phone: [facility] 12-17-2022 16:24-0400 Body temperature 97.7 [degF] CERTIFIED PROSTHETIST VICE PRESIDENT Skye Jones Work Phone: [facility] 12-17-2022 16:24-0400 Diastolic blood pressure 64 mm[Hg] CERTIFIED PROSTHETIST VICE PRESIDENT Skye Jones Work Phone: [facility] 12-17-2022 16:24-0400 Heart rate 90 /min CERTIFIED PROSTHETIST VICE PRESIDENT Skye Jones Work Phone: [facility] 12-17-2022 16:24-0400 Respiratory rate 18 /min CERTIFIED PROSTHETIST VICE PRESIDENT Skye Jones Work Phone: [facility] 12-17-2022 16:24-0400 SaO2% (BldA) [Mass fraction] 98 % CERTIFIED PROSTHETIST VICE PRESIDENT Skye Jones Work Phone: [facility] 12-17-2022 16:24-0400 Systolic blood pressure 117 mm[Hg] CERTIFIED PROSTHETIST VICE PRESIDENT Skye Jones Work Phone: [facility] 12-16-2022 09:01-0400 Body height 170.18 cm CERTIFIED PROSTHETIST VICE PRESIDENT Skye Jones Work Phone: [facility] 12-15-2022 08:51-0400 Body weight 120.2 kg CERTIFIED PROSTHETIST VICE PRESIDENT Skye Jones Work Phone: [facility] 12-10-2022 13:45-0400 Body temperature 98.1 [degF] CERTIFIED PROSTHETIST VICE PRESIDENT Skye Jones Work Phone: [facility] 12-10-2022 13:45-0400 Diastolic blood pressure 69 mm[Hg] CERTIFIED PROSTHETIST VICE PRESIDENT Skye Jones Work Phone: [facility] 12-10-2022 13:45-0400 Heart rate 71 /min CERTIFIED PROSTHETIST VICE PRESIDENT Skye Jones Work Phone: [facility] 12-10-2022 13:45-0400 Respiratory rate 18 /min CERTIFIED PROSTHETIST VICE PRESIDENT Skye Jones Work Phone: [facility] 12-10-2022 13:45-0400 SaO2% (BldA) [Mass fraction] 94 % CERTIFIED PROSTHETIST VICE PRESIDENT Skye Jones Work Phone: [facility] 12-10-2022 13:45-0400 Systolic blood pressure 116 mm[Hg] CERTIFIED PROSTHETIST VICE PRESIDENT Skye Jones Work Phone: [facility] 12-08-2022 16:01-0400 Body height 170.18 cm CERTIFIED PROSTHETIST VICE PRESIDENT Skye Jones Work Phone: [facility] 12-08-2022 09:00-0400 Body weight 123.37 kg CERTIFIED PROSTHETIST VICE PRESIDENT Skye Jones Work Phone: [facility] 12-05-2022 05:29-0400 Diastolic blood pressure 52 mm[Hg] Skye Jones Other Phone: [facility] 12-05-2022 05:29-0400 Heart rate 78 /min Skye Jones Other Phone: [facility] 12-05-2022 05:29-0400 Respiratory rate 16 /min Skye Jones Other Phone: [facility] 12-05-2022 05:29-0400 SaO2% (BldA) [Mass fraction] 95 % Skye Jones Other Phone: [facility] 12-05-2022 05:29-0400 Systolic blood pressure 103 mm[Hg] Skye Jones Other Phone: [facility] 11-27-2022 22:49-0400 Diastolic blood pressure 100 mm[Hg] CERTIFIED PROSTHETIST VICE PRESIDENT Skye Jones Work Phone: [facility] 11-27-2022 22:49-0400 Heart rate 111 /min CERTIFIED PROSTHETIST VICE PRESIDENT Skye Jones Work Phone: [facility] 11-27-2022 22:49-0400 Respiratory rate 20 /min CERTIFIED PROSTHETIST VICE PRESIDENT Skye Jones Work Phone: [facility] 11-27-2022 22:49-0400 SaO2% (BldA) [Mass fraction] 96 % CERTIFIED PROSTHETIST VICE PRESIDENT Skye Jones Work Phone: [facility] 11-27-2022 22:49-0400 Systolic blood pressure 149 mm[Hg] CERTIFIED PROSTHETIST VICE PRESIDENT Skye Jones Work Phone: [facility] 11-27-2022 19:48-0400 Body height 170.18 cm CERTIFIED PROSTHETIST VICE PRESIDENT Skye Jones Work Phone: [facility] 11-27-2022 19:48-0400 Body temperature 98.5 [degF] CERTIFIED PROSTHETIST VICE PRESIDENT Skye Jones Work Phone: [facility] 11-27-2022 19:48-0400 Body weight 121.5 kg CERTIFIED PROSTHETIST VICE PRESIDENT Skye Jones Work Phone: [facility] 11-22-2022 23:13-0400 Diastolic blood pressure 70 mm[Hg] CERTIFIED PROSTHETIST VICE PRESIDENT Skye Jones Work Phone: [facility] 11-22-2022 23:13-0400 Heart rate 107 /min CERTIFIED PROSTHETIST VICE PRESIDENT Skye Jones Work Phone: [facility] 11-22-2022 23:13-0400 Respiratory rate 17 /min CERTIFIED PROSTHETIST VICE PRESIDENT Skye Jones Work Phone: [facility] 11-22-2022 23:13-0400 SaO2% (BldA) [Mass fraction] 94 % CERTIFIED PROSTHETIST VICE PRESIDENT Skye Jones Work Phone: [facility] 11-22-2022 23:13-0400 Systolic blood pressure 141 mm[Hg] CERTIFIED PROSTHETIST VICE PRESIDENT Skye Jones Work Phone: [facility] 11-22-2022 21:10-0400 Body temperature 98.1 [degF] CERTIFIED PROSTHETIST VICE PRESIDENT Skye Jones Work Phone: [facility] 11-22-2022 21:09-0400 Body height 170.18 cm CERTIFIED PROSTHETIST VICE PRESIDENT Skye Jones Work Phone: [facility] 11-22-2022 21:09-0400 Body weight 122.15 kg CERTIFIED PROSTHETIST VICE PRESIDENT Skye Jones Work Phone: [facility] 11-03-2022 14:00-0400 Diastolic blood pressure 84 mm[Hg] [facility] 11-03-2022 14:00-0400 Heart rate 94 /min [facility] 11-03-2022 14:00-0400 Hourly Rounding [facility] 11-03-2022 14:00-0400 Mean blood pressure 107 mm[Hg] [facility] 11-03-2022 14:00-0400 Respiratory rate 18 /min [facility] 11-03-2022 14:00-0400 SaO2% (BldA) [Mass fraction] 96 % [facility] 11-03-2022 14:00-0400 Systolic blood pressure 152 mm[Hg] [facility] 11-03-2022 01:15-0400 Hourly Rounding [facility] 11-03-2022 00:37-0400 Diastolic blood pressure 82 mm[Hg] [facility] 11-03-2022 00:37-0400 Heart rate 90 /min [facility] 11-03-2022 00:37-0400 Hourly Rounding [facility] 11-03-2022 00:37-0400 Mean blood pressure 105 mm[Hg] [facility] 11-03-2022 00:37-0400 Respiratory rate 18 /min [facility] 11-03-2022 00:37-0400 SaO2% (BldA) [Mass fraction] 96 % [facility] 11-03-2022 00:37-0400 Systolic blood pressure 150 mm[Hg] [facility] 11-02-2022 23:58-0400 Diastolic blood pressure 102 mm[Hg] [facility] 11-02-2022 23:58-0400 Heart rate 97 /min [facility] 11-02-2022 23:58-0400 Mean blood pressure 115 mm[Hg] [facility] 11-02-2022 23:58-0400 Respiratory rate 18 /min [facility] 11-02-2022 23:58-0400 SaO2% (BldA) [Mass fraction] 95 % [facility] 11-02-2022 23:58-0400 Systolic blood pressure 142 mm[Hg] Grey [facility] 11-02-2022 21:34-0400 Body temperature 98.42 [degF] [facility] 10-30-2022 13:33-0400 Heart rate 72 /min CERTIFIED PROSTHETIST VICE PRESIDENT Skye Jones Work Phone: [facility] 10-30-2022 13:16-0400 Body height 170.18 cm CERTIFIED PROSTHETIST VICE PRESIDENT Skye Jones Work Phone: [facility] 10-30-2022 13:16-0400 Body temperature 98.5 [degF] CERTIFIED PROSTHETIST VICE PRESIDENT Skye Jones Work Phone: [facility] 10-30-2022 13:16-0400 Body weight 117.93 kg CERTIFIED PROSTHETIST VICE PRESIDENT Skye Jones Work Phone: [facility] 10-30-2022 13:16-0400 Diastolic blood pressure 56 mm[Hg] CERTIFIED PROSTHETIST VICE PRESIDENT Skye Jones Work Phone: [facility] 10-30-2022 13:16-0400 Respiratory rate 18 /min CERTIFIED PROSTHETIST VICE PRESIDENT Skye Jones Work Phone: [facility] 10-30-2022 13:16-0400 SaO2% (BldA) [Mass fraction] 95 % CERTIFIED PROSTHETIST VICE PRESIDENT Skye Jones Work Phone: [facility] 10-30-2022 13:16-0400 Systolic blood pressure 112 mm[Hg] CERTIFIED PROSTHETIST VICE PRESIDENT Skye Jones Work Phone: [facility] 10-28-2022 18:54-0400 Diastolic blood pressure 73 mm[Hg] CERTIFIED PROSTHETIST VICE PRESIDENT Skye Jones Work Phone: [facility] 10-28-2022 18:54-0400 Heart rate 78 /min CERTIFIED PROSTHETIST VICE PRESIDENT Skye Jones Work Phone: [facility] 10-28-2022 18:54-0400 Respiratory rate 20 /min CERTIFIED PROSTHETIST VICE PRESIDENT Skye Jones Work Phone: [facility] 10-28-2022 18:54-0400 SaO2% (BldA) [Mass fraction] 98 % CERTIFIED PROSTHETIST VICE PRESIDENT Skye Jones Work Phone: [facility] 10-28-2022 18:54-0400 Systolic blood pressure 116 mm[Hg] CERTIFIED PROSTHETIST VICE PRESIDENT Skye Jones Work Phone: [facility] 10-28-2022 16:00-0400 Body temperature 97.7 [degF] CERTIFIED PROSTHETIST VICE PRESIDENT Skye Jones Work Phone: [facility] 10-28-2022 15:54-0400 Body height 170.18 cm CERTIFIED PROSTHETIST VICE PRESIDENT Skye Jones Work Phone: [facility] 10-28-2022 15:54-0400 Body weight 117.93 kg CERTIFIED PROSTHETIST VICE PRESIDENT Skye Jones Work Phone: [facility] 10-27-2022 22:01-0400 Diastolic blood pressure 91 mm[Hg] [facility] 10-27-2022 22:01-0400 Heart rate 101 /min [facility] 10-27-2022 22:01-0400 Mean blood pressure 116 mm[Hg] [facility] 10-27-2022 22:01-0400 SaO2% (BldA) [Mass fraction] 96 % [facility] 10-27-2022 22:01-0400 Systolic blood pressure 165 mm[Hg] [facility] 10-27-2022 21:05-0400 Diastolic blood pressure 104 mm[Hg] [facility] 10-27-2022 21:05-0400 Heart rate 111 /min [facility] 10-27-2022 21:05-0400 Mean blood pressure 120 mm[Hg] [facility] 10-27-2022 21:05-0400 SaO2% (BldA) [Mass fraction] 95 % [facility] 10-27-2022 21:05-0400 Systolic blood pressure 152 mm[Hg] [facility] 10-27-2022 20:03-0400 Body temperature 98.06 [degF] [facility] 10-27-2022 20:03-0400 Diastolic blood pressure 83 mm[Hg] [facility] 10-27-2022 20:03-0400 Heart rate 119 /min [facility] 10-27-2022 20:03-0400 Respiratory rate 20 /min [facility] 10-27-2022 20:03-0400 SaO2% (BldA) [Mass fraction] 97 % [facility] 10-27-2022 20:03-0400 Systolic blood pressure 138 mm[Hg] [facility] 10-19-2022 17:55-0400 Diastolic blood pressure 106 mm[Hg] [facility] 10-19-2022 17:55-0400 Heart rate 82 /min [facility] 10-19-2022 17:55-0400 Mean blood pressure 116 mm[Hg] [facility] 10-19-2022 17:55-0400 Respiratory rate 15 /min [facility] 10-19-2022 17:55-0400 SaO2% (BldA) [Mass fraction] 98 % [facility] 10-19-2022 17:55-0400 Systolic blood pressure 137 mm[Hg] [facility] 10-19-2022 14:36-0400 Body temperature 97.88 [degF] [facility] 10-19-2022 14:36-0400 Diastolic blood pressure 91 mm[Hg] [facility] 10-19-2022 14:36-0400 Heart rate 91 /min [facility] 10-19-2022 14:36-0400 Respiratory rate 18 /min [facility] 10-19-2022 14:36-0400 SaO2% (BldA) [Mass fraction] 98 % [facility] 10-19-2022 14:36-0400 Systolic blood pressure 155 mm[Hg] [facility] 10-09-2022 23:22-0400 Diastolic blood pressure 97 mm[Hg] Debbie Vivek [facility] 10-09-2022 23:22-0400 Systolic blood pressure 130 mm[Hg] Debbie Vivek [facility] 10-09-2022 22:22-0400 Diastolic blood pressure 53 mm[Hg] Debbie Vivek [facility] 10-09-2022 22:22-0400 Heart rate 106 /min Debbie Vivek [facility] 10-09-2022 22:22-0400 Mean blood pressure 78 mm[Hg] Debbie Vivek [facility] 10-09-2022 22:22-0400 Respiratory rate 17 /min Debbie Vivek [facility] 10-09-2022 22:22-0400 SaO2% (BldA) [Mass fraction] 95 % Debbie Vivek [facility] 10-09-2022 22:22-0400 Systolic blood pressure 129 mm[Hg] Debbie Vivek [facility] 10-09-2022 21:38-0400 Diastolic blood pressure 85 mm[Hg] Debbie Vivek [facility] 10-09-2022 21:38-0400 Heart rate 117 /min Debbie Vivek [facility] 10-09-2022 21:38-0400 Mean blood pressure 110 mm[Hg] Debbie Vivek [facility] 10-09-2022 21:38-0400 Respiratory rate 18 /min Debbie Vivek [facility] 10-09-2022 21:38-0400 SaO2% (BldA) [Mass fraction] 97 % Debbie Vivek [facility] 10-09-2022 21:38-0400 Systolic blood pressure 160 mm[Hg] Debbie Doyle [facility] 10-09-2022 20:30-0400 Heart rate 117 /min Debbie Doyle [facility] 10-09-2022 20:30-0400 Mean blood pressure 136 mm[Hg] Debbie Doyle [facility] 10-09-2022 20:30-0400 Respiratory rate 15 /min Debbie Doyle [facility] 10-09-2022 20:30-0400 SaO2% (BldA) [Mass fraction] 97 % Debbie Doyle [facility] 10-09-2022 19:50-0400 Body temperature 98.06 [degF] Debbie Doyle [facility] 10-09-2022 19:50-0400 Heart rate 110 /min Debbie Doyle [facility] 09-21-2022 23:00-0400 Body temperature 99.68 [degF] Kaylinn Dokken [facility] 09-21-2022 23:00-0400 Diastolic blood pressure 101 mm[Hg] Kaylinn Dokken [facility] 09-21-2022 23:00-0400 Heart rate 118 /min Kaylinn Dokken [facility] 09-21-2022 23:00-0400 Respiratory rate 16 /min Kaylinn Dokken [facility] 09-21-2022 23:00-0400 SaO2% (BldA) [Mass fraction] 97 % Kaylinn Dokken [facility] 09-21-2022 23:00-0400 Systolic blood pressure 150 mm[Hg] Kaylinn Dokken [facility] 09-21-2022 21:03-0400 Body height 170.18 cm CERTIFIED PROSTHETIST VICE PRESIDENT Skye Jones Work Phone: [facility] 09-21-2022 21:03-0400 Body temperature 97.8 [degF] CERTIFIED PROSTHETIST VICE PRESIDENT Skye Jones Work Phone: [facility] 09-21-2022 21:03-0400 Body weight 120.6 kg CERTIFIED PROSTHETIST VICE PRESIDENT Skye Jones Work Phone: [facility] 09-21-2022 21:03-0400 Diastolic blood pressure 87 mm[Hg] CERTIFIED PROSTHETIST VICE PRESIDENT Skye Jones Work Phone: [facility] 09-21-2022 21:03-0400 Heart rate 125 /min CERTIFIED PROSTHETIST VICE PRESIDENT Skye Jones Work Phone: [facility] 09-21-2022 21:03-0400 Respiratory rate 21 /min CERTIFIED PROSTHETIST VICE PRESIDENT Skye Jones Work Phone: [facility] 09-21-2022 21:03-0400 SaO2% (BldA) [Mass fraction] 96 % CERTIFIED PROSTHETIST VICE PRESIDENT Skye Jones Work Phone: [facility] 09-21-2022 21:03-0400 Systolic blood pressure 141 mm[Hg] CERTIFIED PROSTHETIST VICE PRESIDENT Skye Jones Work Phone: [facility] 09-17-2022 02:42-0400 Heart rate 121 /min Skye Jones CERTIFIED PROSTHETIST VICE PRESIDENT - DIRECTOR OF PHOTOGRAPHY Work Phone: [facility] 09-17-2022 02:42-0400 SaO2% (BldA) [Mass fraction] 99 % Skye Jones CERTIFIED PROSTHETIST VICE PRESIDENT - DIRECTOR OF PHOTOGRAPHY Work Phone: [facility] 09-17-2022 01:19-0400 Diastolic blood pressure 91 mm[Hg] Skye Jones CERTIFIED PROSTHETIST VICE PRESIDENT - DIRECTOR OF PHOTOGRAPHY Work Phone: [facility] 09-17-2022 01:19-0400 Systolic blood pressure 122 mm[Hg] Skye Jones APRN - DIRECTOR OF PHOTOGRAPHY Work Phone: [facility] 09-17-2022 01:16-0400 Body height 170.2 cm Skye Jones APRN - DIRECTOR OF PHOTOGRAPHY Work Phone: [facility] 09-17-2022 01:16-0400 Body mass index (BMI) [Ratio] 40.72 kg/m2 Skye Jones APRN - DIRECTOR OF PHOTOGRAPHY Work Phone: [facility] 09-17-2022 01:16-0400 Body temperature 98.6 [degF] Skye Jones APRN - DIRECTOR OF PHOTOGRAPHY Work Phone: [facility] 09-17-2022 01:16-0400 Body weight 117.94 kg Skye Jones APRN - DIRECTOR OF PHOTOGRAPHY Work Phone: [facility] 09-17-2022 01:16-0400 Respiratory rate 18 /min Skye Jones APRN - DIRECTOR OF PHOTOGRAPHY Work Phone: [facility] 09-08-2022 19:52-0400 Body temperature 98.42 [degF] [facility] 09-08-2022 19:52-0400 Diastolic blood pressure 71 mm[Hg] [facility] 09-08-2022 19:52-0400 Heart rate 115 /min [facility] 09-08-2022 19:52-0400 Respiratory rate 18 /min [facility] 09-08-2022 19:52-0400 SaO2% (BldA) [Mass fraction] 97 % [facility] 09-08-2022 19:52-0400 Systolic blood pressure 123 mm[Hg] [facility] 09-06-2022 22:38-0500 Diastolic blood pressure 75 mm[Hg] CERTIFIED PROSTHETIST VICE PRESIDENT Skye Jones Work Phone: [facility] 09-06-2022 22:38-0500 Heart rate 94 /min CERTIFIED PROSTHETIST VICE PRESIDENT Skye Jones Work Phone: [facility] 09-06-2022 22:38-0500 Respiratory rate 20 /min CERTIFIED PROSTHETIST VICE PRESIDENT Skye Jones Work Phone: [facility] 09-06-2022 22:38-0500 SaO2% (BldA) [Mass fraction] 94 % CERTIFIED PROSTHETIST VICE PRESIDENT Skye Jones Work Phone: [facility] 09-06-2022 22:38-0500 Systolic blood pressure 111 mm[Hg] CERTIFIED PROSTHETIST VICE PRESIDENT Skye Jones Work Phone: [facility] 09-06-2022 20:18-0500 Body height 170.18 cm CERTIFIED PROSTHETIST VICE PRESIDENT Skye Jones Work Phone: [facility] 09-06-2022 20:18-0500 Body temperature 98.2 [degF] CERTIFIED PROSTHETIST VICE PRESIDENT Skye Jones Work Phone: [facility] 09-06-2022 20:18-0500 Body weight 122.35 kg CERTIFIED PROSTHETIST VICE PRESIDENT Skye Jones Work Phone: [facility] 08-29-2022 00:00-0500 Heart rate 106 /min CERTIFIED PROSTHETIST VICE PRESIDENT Skye Jones Work Phone: [facility] 08-29-2022 00:00-0500 Respiratory rate 18 /min CERTIFIED PROSTHETIST VICE PRESIDENT Skye Jones Work Phone: [facility] 08-29-2022 00:00-0500 SaO2% (BldA) [Mass fraction] 98 % CERTIFIED PROSTHETIST VICE PRESIDENT Skye Jones Work Phone: [facility] 08-28-2022 22:09-0500 Diastolic blood pressure 88 mm[Hg] CERTIFIED PROSTHETIST VICE PRESIDENT Skye Jones Work Phone: [facility] 08-28-2022 22:09-0500 Systolic blood pressure 158 mm[Hg] CERTIFIED PROSTHETIST VICE PRESIDENT Skye Jones Work Phone: [facility] 08-28-2022 20:09-0500 Body height 170.18 cm CERTIFIED PROSTHETIST VICE PRESIDENT Skye Jones Work Phone: [facility] 08-28-2022 20:09-0500 Body temperature 99.4 [degF] CERTIFIED PROSTHETIST VICE PRESIDENT Skye Jones Work Phone: [facility] 08-28-2022 20:09-0500 Body weight 119.55 kg CERTIFIED PROSTHETIST VICE PRESIDENT Skye Jones Work Phone: [facility] 08-25-2022 00:13-0500 Diastolic blood pressure 92 mm[Hg] Skyelazara Jones CERTIFIED PROSTHETIST VICE PRESIDENT - DIRECTOR OF PHOTOGRAPHY Work Phone: [facility] [employer] 08-25-2022 00:13-0500 Systolic blood pressure 158 mm[Hg] Skye Jones CERTIFIED PROSTHETIST VICE PRESIDENT - DIRECTOR OF PHOTOGRAPHY Work Phone: [facility] [employer] 08-25-2022 00:11-0500 Respiratory rate 20 /min Skyelazara Jones CERTIFIED PROSTHETIST VICE PRESIDENT - DIRECTOR OF PHOTOGRAPHY Work Phone: [facility] 08-25-2022 00:00-0500 SaO2% (BldA) [Mass fraction] 96 % Skye Jones CERTIFIED PROSTHETIST VICE PRESIDENT - DIRECTOR OF PHOTOGRAPHY Work Phone: [facility] 08-24-2022 20:11-0500 Body height 170.2 cm Skyelazara Jones CERTIFIED PROSTHETIST VICE PRESIDENT - DIRECTOR OF PHOTOGRAPHY Work Phone: [facility] 08-24-2022 20:11-0500 Body mass index (BMI) [Ratio] 40.72 kg/m2 Skyelazara Jones CERTIFIED PROSTHETIST VICE PRESIDENT - DIRECTOR OF PHOTOGRAPHY Work Phone: [facility] 08-24-2022 20:11-0500 Body temperature 98.2 [degF] Skye Jones CERTIFIED PROSTHETIST VICE PRESIDENT - DIRECTOR OF PHOTOGRAPHY Work Phone: [facility] 08-24-2022 20:11-0500 Body weight 117.94 kg Skye Jones CERTIFIED PROSTHETIST VICE PRESIDENT - DIRECTOR OF PHOTOGRAPHY Work Phone: [facility] 08-24-2022 20:11-0500 Heart rate 135 /min Skye Jones CERTIFIED PROSTHETIST VICE PRESIDENT - DIRECTOR OF PHOTOGRAPHY Work Phone: [facility] 08-23-2022 00:36-0500 Diastolic blood pressure 80 mm[Hg] CERTIFIED PROSTHETIST VICE PRESIDENT Skye Jones Work Phone: [facility] 08-23-2022 00:36-0500 Heart rate 120 /min CERTIFIED PROSTHETIST VICE PRESIDENT Skye Jones Work Phone: [facility] 08-23-2022 00:36-0500 Respiratory rate 18 /min CERTIFIED PROSTHETIST VICE PRESIDENT Skye Jones Work Phone: [facility] 08-23-2022 00:36-0500 SaO2% (BldA) [Mass fraction] 96 % CERTIFIED PROSTHETIST VICE PRESIDENT Skye Jones Work Phone: [facility] 08-23-2022 00:36-0500 Systolic blood pressure 153 mm[Hg] CERTIFIED PROSTHETIST VICE PRESIDENT Skye Jones Work Phone: [facility] 08-22-2022 23:47-0500 Body temperature 98.9 [degF] CERTIFIED PROSTHETIST VICE PRESIDENT Skye Jones Work Phone: [facility] 08-22-2022 22:24-0500 Body height 170.18 cm CERTIFIED PROSTHETIST VICE PRESIDENT Skye Jones Work Phone: [facility] 08-22-2022 22:24-0500 Body weight 119 kg CERTIFIED PROSTHETIST VICE PRESIDENT Skye Jones Work Phone: [facility] 08-18-2022 22:00-0500 Diastolic blood pressure 93 mm[Hg] [facility] 08-18-2022 22:00-0500 Heart rate 110 /min [facility] 08-18-2022 22:00-0500 Respiratory rate 17 /min [facility] 08-18-2022 22:00-0500 Systolic blood pressure 149 mm[Hg] [facility] 08-18-2022 19:10-0500 Body temperature 98.6 [degF] [facility] 08-18-2022 19:10-0500 Diastolic blood pressure 76 mm[Hg] [facility] 08-18-2022 19:10-0500 Heart rate 118 /min [facility] 08-18-2022 19:10-0500 Respiratory rate 18 /min [facility] 08-18-2022 19:10-0500 SaO2% (BldA) [Mass fraction] 97 % [facility] 08-18-2022 19:10-0500 Systolic blood pressure 119 mm[Hg] [facility] 08-17-2022 06:53-0500 Diastolic blood pressure 59 mm[Hg] CERTIFIED PROSTHETIST VICE PRESIDENT Skye Jones Work Phone: [facility] 08-17-2022 06:53-0500 Heart rate 83 /min CERTIFIED PROSTHETIST VICE PRESIDENT Skye Jones Work Phone: [facility] 08-17-2022 06:53-0500 Respiratory rate 18 /min CERTIFIED PROSTHETIST VICE PRESIDENT Skye Jones Work Phone: [facility] 08-17-2022 06:53-0500 SaO2% (BldA) [Mass fraction] 96 % CERTIFIED PROSTHETIST VICE PRESIDENT Skye Jones Work Phone: [facility] 08-17-2022 06:53-0500 Systolic blood pressure 128 mm[Hg] CERTIFIED PROSTHETIST VICE PRESIDENTAdrien Zendejasle Jones Work Phone: [facility] 08-17-2022 03:14-0500 Body temperature 98.2 [degF] CERTIFIED PROSTHETIST VICE PRESIDENTAdrien Jones Work Phone: [facility] 08-17-2022 03:13-0500 Body height 170.18 cm CERTIFIED PROSTHETIST VICE PRESIDENT Skye Jones Work Phone: [facility] 08-17-2022 03:13-0500 Body weight 119 kg CERTIFIED PROSTHETIST VICE PRESIDENT Skye Karen Work Phone: [facility] 08-13-2022 23:49-0500 Diastolic blood pressure 88 mm[Hg] Rickey Davis MD Work Phone: [facility] 08-13-2022 23:49-0500 Heart rate 100 /min Rickey Davis MD Work Phone: [facility] 08-13-2022 23:49-0500 Respiratory rate 16 /min Rickey Davis MD Work Phone: [facility] 08-13-2022 23:49-0500 SaO2% (BldA) [Mass fraction] 100 % Rickey Davis MD Work Phone[facility] 08-13-2022 23:49-0500 Systolic blood pressure 120 mm[Hg] Rickey Davis MD Work Phone: [facility] 08-13-2022 20:15-0500 Body height 170.1 cm Skye Jones Other Phone: [facility] 08-13-2022 20:15-0500 Body temperature 99.14 [degF] Skye Jones Other Phone: [facility] 08-13-2022 20:15-0500 Body weight 115 kg Skye Jones Other Phone: [facility] 08-13-2022 20:15-0500 Diastolic blood pressure 123 mm[Hg] Skye Jones Other Phone: [facility] 08-13-2022 20:15-0500 Heart rate 128 /min Skye Jones Other Phone: [facility] 08-13-2022 20:15-0500 Respiratory rate 18 /min Skye Jones Other Phone: [facility] 08-13-2022 20:15-0500 SaO2% (BldA) [Mass fraction] 96 % Skye Jones Other Phone: [facility] 08-13-2022 20:15-0500 Systolic blood pressure 189 mm[Hg] Skye Jones Other Phone: [facility] 08-13-2022 19:46-0500 Body height 170.2 cm Rickey Davis MD Work Phone: [facility] 08-13-2022 19:46-0500 Body mass index (BMI) [Ratio] 39.16 kg/m2 Rickey Davis MD Work Phone: [facility] 08-13-2022 19:46-0500 Body temperature 98.6 [degF] Rickey Davis MD Work Phone: [facility] 08-13-2022 19:46-0500 Body weight 113.4 kg Rickey Davis MD Work Phone: [facility] 08-08-2022 21:56-0500 Diastolic blood pressure 104 mm[Hg] [facility] 08-08-2022 21:56-0500 Heart rate 99 /min [facility] 08-08-2022 21:56-0500 Mean blood pressure 118 mm[Hg] [facility] 08-08-2022 21:56-0500 Respiratory rate 19 /min [facility] 08-08-2022 21:56-0500 SaO2% (BldA) [Mass fraction] 97 % [facility] 08-08-2022 21:56-0500 Systolic blood pressure 145 mm[Hg] [facility] 08-08-2022 21:18-0500 Diastolic blood pressure 92 mm[Hg] [facility] 08-08-2022 21:18-0500 Heart rate 98 /min [facility] 08-08-2022 21:18-0500 Mean blood pressure 104 mm[Hg] [facility] 08-08-2022 21:18-0500 Respiratory rate 20 /min [facility] 08-08-2022 21:18-0500 SaO2% (BldA) [Mass fraction] 96 % [facility] 08-08-2022 21:18-0500 Systolic blood pressure 129 mm[Hg] [facility] 08-08-2022 20:54-0500 Diastolic blood pressure 97 mm[Hg] [facility] 08-08-2022 20:54-0500 Heart rate 102 /min [facility] 02-10-2023 20:54-0500 Mean blood pressure 114 mm[Hg] [facility] 08-08-2022 20:54-0500 Respiratory rate 19 /min [facility] 08-08-2022 20:54-0500 SaO2% (BldA) [Mass fraction] 97 % [facility] 08-08-2022 20:54-0500 Systolic blood pressure 147 mm[Hg] [facility] 08-08-2022 19:32-0500 Body temperature 98.96 [degF] [facility] 08-08-2022 19:32-0500 Heart rate 108 /min [facility] 08-02-2022 14:00-0500 Diastolic blood pressure 77 mm[Hg] CERTIFIED PROSTHETIST VICE PRESIDENT Skye Jones Work Phone: [facility] 08-02-2022 14:00-0500 Heart rate 106 /min CERTIFIED PROSTHETIST VICE PRESIDENT Skye Jones Work Phone: [facility] 08-02-2022 14:00-0500 Respiratory rate 18 /min CERTIFIED PROSTHETIST VICE PRESIDENT Skye Jones Work Phone: [facility] 08-02-2022 14:00-0500 SaO2% (BldA) [Mass fraction] 100 % CERTIFIED PROSTHETIST VICE PRESIDENT Skye Jones Work Phone: [facility] 08-02-2022 14:00-0500 Systolic blood pressure 132 mm[Hg] CERTIFIED PROSTHETIST VICE PRESIDENT Skye Jones Work Phone: [facility] 08-02-2022 00:34-0500 Body height 170.18 cm CERTIFIED PROSTHETIST VICE PRESIDENT Skye Jones Work Phone: [facility] 08-02-2022 00:34-0500 Body temperature 97.6 [degF] CERTIFIED PROSTHETIST VICE PRESIDENT Skye Jones Work Phone: [facility] 08-02-2022 00:34-0500 Body weight 120.2 kg CERTIFIED PROSTHETIST VICE PRESIDENT Skye Jones Work Phone: [facility] 07-22-2022 03:52-0500 Diastolic blood pressure 69 mm[Hg] Skye Jones Other Phone: [facility] 07-22-2022 03:52-0500 Heart rate 88 /min Skye Jones Other Phone: [facility] 07-22-2022 03:52-0500 Respiratory rate 16 /min Skye Jones Other Phone: [facility] 07-22-2022 03:52-0500 SaO2% (BldA) [Mass fraction] 99 % Skye Jones Other Phone: [facility] 07-22-2022 03:52-0500 Systolic blood pressure 137 mm[Hg] Skye Jones Other Phone: [facility] 07-17-2022 22:41-0500 Heart rate 108 /min [facility] 07-17-2022 22:41-0500 SaO2% (BldA) [Mass fraction] 94 % [facility] 07-17-2022 22:35-0500 Diastolic blood pressure 99 mm[Hg] [facility] 07-17-2022 22:35-0500 Heart rate 108 /min [facility] 07-17-2022 22:35-0500 Mean blood pressure 115 mm[Hg] [facility] 07-17-2022 22:35-0500 SaO2% (BldA) [Mass fraction] 92 % [facility] 07-17-2022 22:35-0500 Systolic blood pressure 147 mm[Hg] [facility] 07-17-2022 22:26-0500 Heart rate 107 /min [facility] 07-17-2022 22:26-0500 SaO2% (BldA) [Mass fraction] 94 % [facility] 07-17-2022 22:16-0500 Diastolic blood pressure 102 mm[Hg] [facility] 07-17-2022 22:16-0500 Heart rate 121 /min [facility] 07-17-2022 22:16-0500 Systolic blood pressure 155 mm[Hg] [facility] 07-17-2022 20:38-0500 Diastolic blood pressure 93 mm[Hg] [facility] 07-17-2022 20:38-0500 Mean blood pressure 111 mm[Hg] [facility] 07-17-2022 20:38-0500 Systolic blood pressure 147 mm[Hg] [facility] 07-17-2022 19:39-0500 Body temperature 98.06 [degF] [facility] 07-17-2022 19:39-0500 Heart rate 130 /min [facility] 07-17-2022 19:39-0500 Respiratory rate 18 /min [facility] 07-11-2022 00:45-0500 Diastolic blood pressure 73 mm[Hg] Skyelazara Jones CERTIFIED PROSTHETIST VICE PRESIDENT - DIRECTOR OF PHOTOGRAPHY Work Phone: [facility] 07-11-2022 00:45-0500 Heart rate 99 /min Skye Karen CERTIFIED PROSTHETIST VICE PRESIDENT - DIRECTOR OF PHOTOGRAPHY Work Phone: [facility] 07-11-2022 00:45-0500 Respiratory rate 18 /min Skye Karen CERTIFIED PROSTHETIST VICE PRESIDENT - DIRECTOR OF PHOTOGRAPHY Work Phone: [facility] 07-11-2022 00:45-0500 SaO2% (BldA) [Mass fraction] 98 % Skye Karen CERTIFIED PROSTHETIST VICE PRESIDENT - DIRECTOR OF PHOTOGRAPHY Work Phone: [facility] 07-11-2022 00:45-0500 Systolic blood pressure 145 mm[Hg] Skye Jones CERTIFIED PROSTHETIST VICE PRESIDENT - DIRECTOR OF PHOTOGRAPHY Work Phone: [facility] 07-10-2022 20:00-0500 Body mass index (BMI) [Ratio] 39.16 kg/m2 Skye Jones CERTIFIED PROSTHETIST VICE PRESIDENT - DIRECTOR OF PHOTOGRAPHY Work Phone: [facility] 07-10-2022 20:00-0500 Body temperature 98.1 [degF] Skye Jones CERTIFIED PROSTHETIST VICE PRESIDENT - DIRECTOR OF PHOTOGRAPHY Work Phone: [facility] 07-10-2022 20:00-0500 Body weight 113.4 kg Skye Jones CERTIFIED PROSTHETIST VICE PRESIDENT - DIRECTOR OF PHOTOGRAPHY Work Phone: [facility] 07-04-2022 02:11-0500 Diastolic blood pressure 103 mm[Hg] CERTIFIED PROSTHETIST VICE PRESIDENT Skye Jones Work Phone: [facility] 07-04-2022 02:11-0500 Heart rate 112 /min CERTIFIED PROSTHETIST VICE PRESIDENT Skye Jones Work Phone: [facility] 07-04-2022 02:11-0500 Respiratory rate 22 /min CERTIFIED PROSTHETIST VICE PRESIDENT Skye Jones Work Phone: [facility] 07-04-2022 02:11-0500 SaO2% (BldA) [Mass fraction] 97 % CERTIFIED PROSTHETIST VICE PRESIDENT Skye Jones Work Phone: [facility] 07-04-2022 02:11-0500 Systolic blood pressure 157 mm[Hg] CERTIFIED PROSTHETIST VICE PRESIDENT Skye Jones Work Phone: [facility] 07-03-2022 22:44-0500 Body height 170.18 cm CERTIFIED PROSTHETIST VICE PRESIDENT Skye Jones Work Phone: [facility] 07-03-2022 22:44-0500 Body temperature 98.7 [degF] CERTIFIED PROSTHETIST VICE PRESIDENT Skye Jones Work Phone: [facility] 07-03-2022 22:44-0500 Body weight 117.6 kg CERTIFIED PROSTHETIST VICE PRESIDENT Skye Jones Work Phone: [facility] 06-19-2022 02:28-0500 Nursing Progress Note Reason Other: discharge instructions given. pt verbalized understanding. left with family [facility] 06-19-2022 02:19-0500 Diastolic blood pressure 78 mm[Hg] [facility] 06-19-2022 02:19-0500 Heart rate 104 /min [facility] 06-19-2022 02:19-0500 Respiratory rate 20 /min [facility] 06-19-2022 02:19-0500 SaO2% (BldA) [Mass fraction] 96 % [facility] 06-19-2022 02:19-0500 Systolic blood pressure 154 mm[Hg] [facility] 06-19-2022 01:42-0500 Diastolic blood pressure 79 mm[Hg] [facility] 06-19-2022 01:42-0500 Heart rate 105 /min [facility] 06-19-2022 01:42-0500 Respiratory rate 20 /min [facility] 06-19-2022 01:42-0500 SaO2% (BldA) [Mass fraction] 98 % [facility] 06-19-2022 01:42-0500 Systolic blood pressure 156 mm[Hg] [facility] 06-19-2022 00:40-0500 Heart rate 105 /min [facility] 06-19-2022 00:40-0500 Respiratory rate 20 /min [facility] 06-19-2022 00:40-0500 SaO2% (BldA) [Mass fraction] 99 % [facility] 06-19-2022 00:16-0500 Nursing Progress Note Reason Other: iv started pt refused tylenol and zofran. fluids infusing [facility] 06-18-2022 22:49-0500 Body temperature 98.06 [degF] [facility] 06-18-2022 22:49-0500 Diastolic blood pressure 86 mm[Hg] [facility] 06-18-2022 22:49-0500 Systolic blood pressure 127 mm[Hg] [facility] 06-08-2022 23:44-0500 Diastolic blood pressure 55 mm[Hg] CERTIFIED PROSTHETIST VICE PRESIDENT Skye Jones Work Phone: [facility] 06-08-2022 23:44-0500 Heart rate 83 /min CERTIFIED PROSTHETIST VICE PRESIDENT Skye Jones Work Phone: [facility] 06-08-2022 23:44-0500 Respiratory rate 16 /min CERTIFIED PROSTHETIST VICE PRESIDENT Skye Jones Work Phone: [facility] 06-08-2022 23:44-0500 SaO2% (BldA) [Mass fraction] 94 % CERTIFIED PROSTHETIST VICE PRESIDENT Skye Jones Work Phone: [facility] 06-08-2022 23:44-0500 Systolic blood pressure 105 mm[Hg] CERTIFIED PROSTHETIST VICE PRESIDENT Skye Jones Work Phone: [facility] 06-08-2022 21:45-0500 Body height 170.18 cm CERTIFIED PROSTHETIST VICE PRESIDENT Skye Jones Work Phone: [facility] 06-08-2022 21:45-0500 Body temperature 98.2 [degF] CERTIFIED PROSTHETIST VICE PRESIDENT Skye Jones Work Phone: [facility] 06-08-2022 21:45-0500 Body weight 114 kg CERTIFIED PROSTHETIST VICE PRESIDENT Skye Jones Work Phone: [facility] 05-28-2022 00:59-0500 Body temperature 98.7 [degF] CERTIFIED PROSTHETIST VICE PRESIDENT Skye Jnoes Work Phone: [facility] 05-28-2022 00:59-0500 Diastolic blood pressure 63 mm[Hg] CERTIFIED PROSTHETIST VICE PRESIDENT Skye Jones Work Phone: [facility] 05-28-2022 00:59-0500 Heart rate 112 /min CERTIFIED PROSTHETIST VICE PRESIDENT Skye Jones Work Phone: [facility] 05-28-2022 00:59-0500 Respiratory rate 18 /min CERTIFIED PROSTHETIST VICE PRESIDENT Skye Jonse Work Phone: [facility] 05-28-2022 00:59-0500 SaO2% (BldA) [Mass fraction] 96 % CERTIFIED PROSTHETIST VICE PRESIDENT Skye Jones Work Phone: [facility] 05-28-2022 00:59-0500 Systolic blood pressure 126 mm[Hg] CERTIFIED PROSTHETIST VICE PRESIDENT Ksye Jones Work Phone: [facility] 05-27-2022 22:38-0500 Body height 170.18 cm CERTIFIED PROSTHETIST VICE PRESIDENT Skye Jones Work Phone: [facility] 05-27-2022 22:38-0500 Body weight 112.65 kg CERTIFIED PROSTHETIST VICE PRESIDENT Skye Jones Work Phone: [facility] 05-11-2022 19:51-0500 Diastolic blood pressure 58 mm[Hg] [facility] 05-11-2022 19:51-0500 Heart rate 125 /min [facility] 05-11-2022 19:51-0500 Mean blood pressure 86 mm[Hg] [facility] 05-11-2022 19:51-0500 SaO2% (BldA) [Mass fraction] 95 % [facility] 05-11-2022 19:51-0500 Systolic blood pressure 142 mm[Hg] [facility] 05-11-2022 19:23-0500 Diastolic blood pressure 82 mm[Hg] [facility] 05-11-2022 19:23-0500 Heart rate 118 /min [facility] 05-11-2022 19:23-0500 Mean blood pressure 103 mm[Hg] [facility] 05-11-2022 19:23-0500 SaO2% (BldA) [Mass fraction] 98 % [facility] 05-11-2022 19:23-0500 Systolic blood pressure 144 mm[Hg] [facility] 05-11-2022 18:14-0500 Diastolic blood pressure 85 mm[Hg] [facility] 05-11-2022 18:14-0500 Heart rate 121 /min [facility] 05-11-2022 18:14-0500 Mean blood pressure 99 mm[Hg] [facility] 05-11-2022 18:14-0500 Respiratory rate 16 /min [facility] 05-11-2022 18:14-0500 SaO2% (BldA) [Mass fraction] 96 % [facility] 05-11-2022 18:14-0500 Systolic blood pressure 128 mm[Hg] [facility] 05-11-2022 17:28-0500 Body temperature 99.32 [degF] [facility] 05-11-2022 17:28-0500 Heart rate 134 /min [facility] 05-11-2022 17:28-0500 Respiratory rate 18 /min [facility] 05-01-2022 22:44-0400 Diastolic blood pressure 87 mm[Hg] CERTIFIED PROSTHETIST VICE PRESIDENT Skye Jones Work Phone: [facility] 05-01-2022 22:44-0400 Heart rate 110 /min CERTIFIED PROSTHETIST VICE PRESIDENT Skye Jones Work Phone: [facility] 05-01-2022 22:44-0400 Respiratory rate 18 /min CERTIFIED PROSTHETIST VICE PRESIDENT Skye Jones Work Phone: [facility] 05-01-2022 22:44-0400 SaO2% (BldA) [Mass fraction] 96 % CERTIFIED PROSTHETIST VICE PRESIDENT Skye Jones Work Phone: [facility] 05-01-2022 22:44-0400 Systolic blood pressure 147 mm[Hg] CERTIFIED PROSTHETIST VICE PRESIDENT Skye Jones Work Phone: [facility] 05-01-2022 20:45-0400 Body height 170.18 cm CERTIFIED PROSTHETIST VICE PRESIDENT Skye Jones Work Phone: [facility] 05-01-2022 20:45-0400 Body temperature 98.3 [degF] CERTIFIED PROSTHETIST VICE PRESIDENT Skye Jones Work Phone: [facility] 05-01-2022 20:45-0400 Body weight 104.32 kg CERTIFIED PROSTHETIST VICE PRESIDENT Skye Jones Work Phone: [facility] 04-25-2022 15:59-0400 Blood Pressure Location [facility] 04-25-2022 15:59-0400 Body temperature 97.7 [degF] [facility] 04-25-2022 15:59-0400 Diastolic blood pressure 94 mm[Hg] [facility] 04-25-2022 15:59-0400 Heart rate 82 /min [facility] 04-25-2022 15:59-0400 Mean blood pressure 112 mm[Hg] [facility] 04-25-2022 15:59-0400 Respiratory rate 17 /min [facility] 04-25-2022 15:59-0400 SaO2% (BldA) [Mass fraction] 98 % [facility] 04-25-2022 15:59-0400 Systolic blood pressure 149 mm[Hg] [facility] 04-25-2022 15:08-0400 Blood Pressure Location [facility] 04-25-2022 15:08-0400 Body temperature 97.88 [degF] [facility] 04-25-2022 15:08-0400 Diastolic blood pressure 112 mm[Hg] [facility] 04-25-2022 15:08-0400 Heart rate 78 /min [facility] 04-25-2022 15:08-0400 Mean blood pressure 135 mm[Hg] [facility] 04-25-2022 15:08-0400 Respiratory rate 14 /min [facility] 04-25-2022 15:08-0400 SaO2% (BldA) [Mass fraction] 97 % [facility] 04-25-2022 15:08-0400 Systolic blood pressure 181 mm[Hg] [facility] 04-25-2022 15:05-0400 Body temperature 97.52 [degF] [facility] 04-25-2022 15:05-0400 Diastolic blood pressure 83 mm[Hg] [facility] 04-25-2022 15:05-0400 Heart rate 88 /min [facility] 04-25-2022 15:05-0400 Respiratory rate 16 /min [facility] 04-25-2022 15:05-0400 SaO2% (BldA) [Mass fraction] 92 % [facility] 04-25-2022 15:05-0400 Systolic blood pressure 148 mm[Hg] [facility] 04-25-2022 14:50-0400 Respiratory rate 12 /min [facility] 04-25-2022 14:35-0400 Respiratory rate 25 /min [facility] 04-25-2022 13:39-0400 Body temperature 96.98 [degF] [facility] 04-25-2022 13:35-0400 Respiratory rate 15 /min [facility] [employer] [facility] 04-25-2022 08:19-0400 Blood Pressure Location [facility] 04-25-2022 08:19-0400 Mean blood pressure 103 mm[Hg] [facility] 04-25-2022 08:19-0400 Heart rate 80 /min [facility] 04-25-2022 08:18-0400 Body temperature 97.7 [degF] [facility] 04-25-2022 08:18-0400 Mean blood pressure 104 mm[Hg] [facility] 04-22-2022 01:03-0400 Diastolic blood pressure 79 mm[Hg] [facility] 04-22-2022 01:03-0400 Heart rate 91 /min [facility] 04-22-2022 01:03-0400 Hourly Rounding [facility] 04-22-2022 01:03-0400 Mean blood pressure 93 mm[Hg] [facility] 04-22-2022 01:03-0400 Respiratory rate 18 /min [facility] 04-22-2022 01:03-0400 SaO2% (BldA) [Mass fraction] 97 % [facility] 04-22-2022 01:03-0400 Systolic blood pressure 120 mm[Hg] [facility] 04-22-2022 00:39-0400 Diastolic blood pressure 79 mm[Hg] [facility] 04-22-2022 00:39-0400 Heart rate 93 /min [facility] 04-22-2022 00:39-0400 Hourly Rounding [facility] 04-22-2022 00:39-0400 Mean blood pressure 89 mm[Hg] [facility] 04-22-2022 00:39-0400 Respiratory rate 20 /min [facility] 04-22-2022 00:39-0400 SaO2% (BldA) [Mass fraction] 96 % [facility] 04-22-2022 00:39-0400 Systolic blood pressure 109 mm[Hg] [facility] 04-21-2022 23:11-0400 Diastolic blood pressure 94 mm[Hg] [facility] 04-21-2022 23:11-0400 Heart rate 94 /min [facility] 04-21-2022 23:11-0400 Hourly Rounding [facility] 04-21-2022 23:11-0400 Mean blood pressure 106 mm[Hg] [facility] 04-21-2022 23:11-0400 Respiratory rate 20 /min [facility] 04-21-2022 23:11-0400 SaO2% (BldA) [Mass fraction] 98 % [facility] 04-21-2022 23:11-0400 Systolic blood pressure 131 mm[Hg] [facility] 04-21-2022 21:20-0400 Body temperature 97.16 [degF] [facility] 04-21-2022 21:20-0400 Heart rate 103 /min [facility] 04-15-2022 08:38-0400 Diastolic blood pressure 105 mm[Hg] [facility] 04-15-2022 08:38-0400 Heart rate 87 /min [facility] 04-15-2022 08:38-0400 Mean blood pressure 120 mm[Hg] [facility] 04-15-2022 08:38-0400 Systolic blood pressure 149 mm[Hg] [facility] 04-15-2022 08:38-0400 Body temperature 97.88 [degF] [facility] 04-15-2022 08:37-0400 Blood Pressure Location [facility] 04-15-2022 08:37-0400 BP/Pulse Patient Position [facility] 04-15-2022 08:37-0400 Diastolic blood pressure 96 mm[Hg] [facility] 04-15-2022 08:37-0400 Heart rate 84 /min [facility] 04-15-2022 08:37-0400 Mean blood pressure 120 mm[Hg] [facility] 04-15-2022 08:37-0400 Respiratory rate 18 /min [facility] 04-15-2022 08:37-0400 SaO2% (BldA) [Mass fraction] 99 % [facility] 04-15-2022 08:37-0400 Systolic blood pressure 167 mm[Hg] [facility] 04-13-2022 05:27-0400 Body temperature 98.3 [degF] CERTIFIED PROSTHETIST VICE PRESIDENT Skye Jones Work Phone: [facility] 04-13-2022 05:27-0400 Diastolic blood pressure 78 mm[Hg] CERTIFIED PROSTHETIST VICE PRESIDENT Skye Jones Work Phone: [facility] 04-13-2022 05:27-0400 Heart rate 90 /min CERTIFIED PROSTHETIST VICE PRESIDENT Skye Jones Work Phone: [facility] 04-13-2022 05:27-0400 Respiratory rate 20 /min CERTIFIED PROSTHETIST VICE PRESIDENT Skye Jones Work Phone: [facility] 04-13-2022 05:27-0400 SaO2% (BldA) [Mass fraction] 96 % CERTIFIED PROSTHETIST VICE PRESIDENT Skye Jones Work Phone: [facility] 04-13-2022 05:27-0400 Systolic blood pressure 141 mm[Hg] CERTIFIED PROSTHETIST VICE PRESIDENT Skye Jones Work Phone: [facility] 04-12-2022 21:47-0400 Body height 170.18 cm CERTIFIED PROSTHETIST VICE PRESIDENT Skye Jones Work Phone: [facility] 04-12-2022 21:47-0400 Body weight 112.9 kg CERTIFIED PROSTHETIST VICE PRESIDENT Skye Jones Work Phone: [facility] 04-07-2022 22:25-0400 Body height 170.18 cm CERTIFIED PROSTHETIST VICE PRESIDENT Skye Jones Work Phone: [facility] 04-07-2022 22:25-0400 Body weight 112.8 kg CERTIFIED PROSTHETIST VICE PRESIDENT Skye Jones Work Phone: [facility] 04-07-2022 22:25-0400 Diastolic blood pressure 74 mm[Hg] CERTIFIED PROSTHETIST VICE PRESIDENT Skye Jones Work Phone: [facility] 04-07-2022 22:25-0400 Heart rate 97 /min CERTIFIED PROSTHETIST VICE PRESIDENT Skye Jones Work Phone: [facility] 04-07-2022 22:25-0400 Respiratory rate 24 /min CERTIFIED PROSTHETIST VICE PRESIDENT Skye Jones Work Phone: [facility] 04-07-2022 22:25-0400 SaO2% (BldA) [Mass fraction] 98 % CERTIFIED PROSTHETIST VICE PRESIDENT Skye Jones Work Phone: [facility] 04-07-2022 22:25-0400 Systolic blood pressure 160 mm[Hg] CERTIFIED PROSTHETIST VICE PRESIDENT Skye Jones Work Phone: [facility] 03-31-2022 23:54-0400 Body temperature 97.9 [degF] CERTIFIED PROSTHETIST VICE PRESIDENT Skye Jones Work Phone: [facility] 03-31-2022 23:54-0400 Diastolic blood pressure 54 mm[Hg] CERTIFIED PROSTHETIST VICE PRESIDENT Skye Jones Work Phone: [facility] 03-31-2022 23:54-0400 Heart rate 79 /min CERTIFIED PROSTHETIST VICE PRESIDENT Skye Jones Work Phone: [facility] 03-31-2022 23:54-0400 Respiratory rate 16 /min CERTIFIED PROSTHETIST VICE PRESIDENT Skye Jones Work Phone: [facility] 03-31-2022 23:54-0400 SaO2% (BldA) [Mass fraction] 93 % CERTIFIED PROSTHETIST VICE PRESIDENT Skye Jones Work Phone: [facility] 03-31-2022 23:54-0400 Systolic blood pressure 90 mm[Hg] CERTIFIED PROSTHETIST VICE PRESIDENT Skye Jones Work Phone: [facility] 03-31-2022 19:46-0400 Body height 170.18 cm CERTIFIED PROSTHETIST VICE PRESIDENT Skye Jones Work Phone: [facility] 03-31-2022 19:46-0400 Body weight 113.3 kg CERTIFIED PROSTHETIST VICE PRESIDENT Skye Jones Work Phone: [facility] 03-12-2022 13:00-0400 Body height Cassandra Claros Other [employer] Other 03-12-2022 13:00-0400 Body mass index (BMI) [Ratio] 36.31 kg/m2 Cassandra Mcguiremond Other [employer] Other 03-12-2022 13:00-0400 Body temperature 97.7 [degF] Cassandra Mcguiremond Other [employer] Other 03-12-2022 13:00-0400 Body weight 102.06 kg Cassandra Mcguiremond Other [employer] Other 03-12-2022 13:00-0400 Respiratory rate 18 /min Cassandra Mcguiremond Other [facility] [employer] Other 03-12-2022 13:00-0400 SaO2% (BldA) [Mass fraction] 98 % Cassandra Claros Other [facility] [employer] Other 03-08-2022 22:35-0400 Nursing Progress Note Reason Other: states pain is better [facility] 03-08-2022 22:34-0400 Diastolic blood pressure 52 mm[Hg] [facility] 03-08-2022 22:34-0400 Heart rate 97 /min [facility] 03-08-2022 22:34-0400 Respiratory rate 16 /min [facility] 03-08-2022 22:34-0400 Systolic blood pressure 118 mm[Hg] [facility] 03-08-2022 22:20-0400 Nursing Progress Note Reason Other: discharge instructions given. pt verbalized understanding. [facility] 03-08-2022 21:53-0400 Nursing Progress Note Reason Other: patient med for pain [facility] 03-08-2022 21:27-0400 Diastolic blood pressure 82 mm[Hg] [facility] 03-08-2022 21:27-0400 Heart rate 105 /min [facility] 03-08-2022 21:27-0400 Respiratory rate 20 /min [facility] 03-08-2022 21:27-0400 SaO2% (BldA) [Mass fraction] 97 % [facility] 03-08-2022 21:27-0400 Systolic blood pressure 131 mm[Hg] [facility] 03-08-2022 19:53-0400 Body temperature 98.42 [degF] [facility] 03-08-2022 19:53-0400 Diastolic blood pressure 83 mm[Hg] [facility] 03-08-2022 19:53-0400 Heart rate 113 /min [facility] 03-08-2022 19:53-0400 Respiratory rate 18 /min [facility] 03-08-2022 19:53-0400 SaO2% (BldA) [Mass fraction] 98 % [facility] 03-08-2022 19:53-0400 Systolic blood pressure 134 mm[Hg] [facility] 02-26-2022 03:06-0400 Diastolic blood pressure 93 mm[Hg] CERTIFIED PROSTHETIST VICE PRESIDENT Skye Jones Work Phone: [facility] 02-26-2022 03:06-0400 Heart rate 96 /min CERTIFIED PROSTHETIST VICE PRESIDENT Skye Jones Work Phone: [facility] 02-26-2022 03:06-0400 Respiratory rate 20 /min CERTIFIED PROSTHETIST VICE PRESIDENT Skye Jones Work Phone: [facility] 02-26-2022 03:06-0400 SaO2% (BldA) [Mass fraction] 97 % CERTIFIED PROSTHETIST VICE PRESIDENT Skye Jones Work Phone: [facility] 02-26-2022 03:06-0400 Systolic blood pressure 142 mm[Hg] CERTIFIED PROSTHETIST VICE PRESIDENT Skye Jones Work Phone: [facility] 02-25-2022 21:30-0400 Body height 170.18 cm CERTIFIED PROSTHETIST VICE PRESIDENT Skye Jones Work Phone: [facility] 02-25-2022 21:30-0400 Body temperature 98.2 [degF] CERTIFIED PROSTHETIST VICE PRESIDENT Skye Jones Work Phone: [facility] 02-25-2022 21:30-0400 Body weight 102.05 kg CERTIFIED PROSTHETIST VICE PRESIDENT Skye Jones Work Phone: [facility] 12-06-2021 19:03-0400 Body height 170.18 cm CERTIFIED PROSTHETIST VICE PRESIDENT Skye Jones Work Phone: [facility] 12-06-2021 19:03-0400 Body mass index (BMI) [Ratio] 35.9 kg/m2 CERTIFIED PROSTHETIST VICE PRESIDENT Skye Jones Work Phone: [facility] 12-06-2021 19:03-0400 Body temperature 98.5 [degF] CERTIFIED PROSTHETIST VICE PRESIDENT Skye Jones Work Phone: [facility] 12-06-2021 19:03-0400 Body weight 104 kg CERTIFIED PROSTHETIST VICE PRESIDENT Skye Jones Work Phone: [facility] 12-06-2021 19:03-0400 Diastolic blood pressure 86 mm[Hg] CERTIFIED PROSTHETIST VICE PRESIDENT Skye Jones Work Phone: [facility] 12-06-2021 19:03-0400 Heart rate 113 /min CERTIFIED PROSTHETIST VICE PRESIDENT Skye Jones Work Phone: [facility] 12-06-2021 19:03-0400 Respiratory rate 20 /min CERTIFIED PROSTHETIST VICE PRESIDENT Skye Jones Work Phone: [facility] 12-06-2021 19:03-0400 SaO2% (BldA) [Mass fraction] 96 % CERTIFIED PROSTHETIST VICE PRESIDENTAdrien Jones Work Phone: [facility] 12-06-2021 19:03-0400 Systolic blood pressure 171 mm[Hg] CERTIFIED PROSTHETIST VICE PRESIDENT Skye Jones Work Phone: [facility] 12-06-2021 08:33-0400 Respiratory rate 15 /min Cristi Feng MD Work Phone: [place] 12-06-2021 06:56-0400 Body temperature 98.1 [degF] Cristi Feng MD Work Phone: [place] 12-06-2021 06:56-0400 Diastolic blood pressure 82 mm[Hg] Cristi Feng MD Work Phone: [place] 12-06-2021 06:56-0400 Heart rate 97 /min Cristi Feng MD Work Phone: [place] 12-06-2021 06:56-0400 SaO2% (BldA) [Mass fraction] 94 % Cristi Feng MD Work Phone: [place] 12-06-2021 06:56-0400 Systolic blood pressure 122 mm[Hg] Cristi Feng MD Work Phone: [place] 12-03-2021 22:02-0400 Body height 170.2 cm Cristi Feng MD Work Phone: [place] 12-03-2021 22:02-0400 Body mass index (BMI) [Ratio] 34.46 kg/m2 Cristi Feng MD Work Phone: [place] 12-03-2021 22:02-0400 Body weight 99.79 kg Cristi Feng MD Work Phone: [place] 10-01-2021 01:40-0400 Diastolic blood pressure 57 mm[Hg] PEE Jones Work Phone: [facility] 10-01-2021 01:40-0400 Heart rate 98 /min PEE Jones Work Phone: [facility] 10-01-2021 01:40-0400 Respiratory rate 18 /min CERTIFIED PROSTHETIST VICE PRESIDENTAdrien Jones Work Phone: [facility] 10-01-2021 01:40-0400 SaO2% (BldA) [Mass fraction] 96 % CERTIFIED PROSTHETIST VICE PRESIDENTAdrien Cheung Jones Work Phone: [facility] 10-01-2021 01:40-0400 Systolic blood pressure 113 mm[Hg] CERTIFIED PROSTHETIST VICE PRESIDENTAdrien Jones Work Phone: [facility] 09-30-2021 22:37-0400 Body height 170.18 cm CERTIFIED PROSTHETIST VICE PRESIDENTAdrien Haileach Work Phone: [facility] 09-30-2021 22:37-0400 Body mass index (BMI) [Ratio] 35.2 kg/m2 CERTIFIED PROSTHETIST VICE PRESIDENTAdrien Cheung Jones Work Phone: [facility] 09-30-2021 22:37-0400 Body temperature 98.5 [degF] PEE Jones Work Phone: [facility] 09-30-2021 22:37-0400 Body weight 102 kg CERTIFIED PROSTHETIST VICE PRESIDENTAdrien Jones Work Phone: [facility] 06-25-2021 08:46-0500 Body height 170.2 cm Genet Rosado PA Work Phone: [facility] 06-25-2021 08:46-0500 Body mass index (BMI) [Ratio] 34.46 kg/m2 Genet Rosado PA Work Phone: [facility] 06-25-2021 08:46-0500 Body temperature 98.01 [degF] Genet Rosado PA Work Phone: [facility] 06-25-2021 08:46-0500 Body weight 99.79 kg Genet Rosado PA Work Phone: [facility] 06-25-2021 08:46-0500 Diastolic blood pressure 66 mm[Hg] Genet Rosado PA Work Phone: [facility] [employer] [facility] 06-25-2021 08:46-0500 Heart rate 112 /min Genet Rosado PA Work Phone: [facility] [employer] 06-25-2021 08:46-0500 Respiratory rate 16 /min Genet Rosado PA Work Phone: [facility] [employer] 06-25-2021 08:46-0500 SaO2% (BldA) [Mass fraction] 95 % Genet Rosado PA Work Phone: [facility] [employer] [facility] 06-25-2021 08:46-0500 Systolic blood pressure 108 mm[Hg] Genet Rosado PA Work Phone: [facility] [employer] [facility] 06-10-2021 06:17-0500 Diastolic blood pressure 74 mm[Hg] No Pcp Required [facility] 06-10-2021 06:17-0500 Heart rate 94 /min No Pcp Required [facility] 06-10-2021 06:17-0500 Respiratory rate 18 /min No Pcp Required [facility] 06-10-2021 06:17-0500 SaO2% (BldA) [Mass fraction] 98 % No Pcp Required [facility] 06-10-2021 06:17-0500 Systolic blood pressure 136 mm[Hg] No Pcp Required [facility] 06-10-2021 04:26-0500 Body height 170.1 cm No Pcp Required [facility] 06-10-2021 04:26-0500 Body temperature 98.24 [degF] No Pcp Required [facility] 06-10-2021 04:26-0500 Body weight 100 kg No Pcp Required [facility] 04-15-2021 17:44-0400 Body height 170.2 cm Yanely [employer] Work Phone: [employer] Work Phone: 04-15-2021 17:44-0400 Body mass index (BMI) [Ratio] 32.42 kg/m2 Yanely [employer] Work Phone: [employer] Work Phone: 04-15-2021 17:44-0400 Body temperature 97.81 [degF] Yanely Coyle DO Work Phone: [employer] Work Phone: 04-15-2021 17:44-0400 Body weight 93.89 kg Yanely Coyle DO Work Phone: [employer] Work Phone: 04-15-2021 17:44-0400 Diastolic blood pressure 56 mm[Hg] Yanely Coyle DO Work Phone: [employer] Work Phone: 04-15-2021 17:44-0400 Heart rate 124 /min Yanely Coyle DO Work Phone: [employer] Work Phone: 04-15-2021 17:44-0400 Respiratory rate 16 /min Yanely Coyle DO Work Phone: [employer] Work Phone: 04-15-2021 17:44-0400 SaO2% (BldA) [Mass fraction] 98 % Yanely Coyle DO Work Phone: [employer] Work Phone: 04-15-2021 17:44-0400 Systolic blood pressure 108 mm[Hg] Yanely Coyle DO Work Phone: [employer] Work Phone: 02-06-2021 08:09-0400 Diastolic blood pressure 92 mm[Hg] Tim Roper MD Work Phone: [place] 02-06-2021 08:09-0400 Heart rate 95 /min Tim Roper MD Work Phone: [place] 02-06-2021 08:09-0400 SaO2% (BldA) [Mass fraction] 98 % Tim Roper MD Work Phone: [place] 02-06-2021 08:09-0400 Systolic blood pressure 140 mm[Hg] Tim Roper MD Work Phone: [place] 02-02-2021 12:09-0400 Respiratory rate 14 /min Sena White MD Work Phone: [place] 02-02-2021 08:14-0400 Body temperature 97.9 [degF] Sena White MD Work Phone: [place] 02-02-2021 08:14-0400 Diastolic blood pressure 80 mm[Hg] Sena White MD Work Phone: [place] 02-02-2021 08:14-0400 Heart rate 83 /min Sena White MD Work Phone: [place] 02-02-2021 08:14-0400 SaO2% (BldA) [Mass fraction] 95 % Sena White MD Work Phone: [place] 02-02-2021 08:14-0400 Systolic blood pressure 132 mm[Hg] Sena White MD Work Phone: [place] 01-31-2021 21:55-0400 Body height 170.2 cm Sena White MD Work Phone: [place] 01-31-2021 21:55-0400 Body mass index (BMI) [Ratio] 34.3 kg/m2 Sena White MD Work Phone: [place] 01-31-2021 21:55-0400 Body weight 99.34 kg Sena White MD Work Phone: [place] 01-14-2021 21:56-0400 [facility] 01-14-2021 21:55-0400 Body temperature 98.29 [degF] [facility] [employer] [facility] [place] 01-14-2021 21:55-0400 Diastolic blood pressure 88 mm[Hg] [facility] 01-14-2021 21:55-0400 Heart rate 97 /min [facility] 01-14-2021 21:55-0400 Respiratory rate 18 /min [facility] 01-14-2021 21:55-0400 SaO2% (BldA) [Mass fraction] 96 % [facility] 01-14-2021 21:55-0400 Systolic blood pressure 138 mm[Hg] [facility] 12-11-2020 03:34-0400 Diastolic blood pressure 84 mm[Hg] No Pcp Required [facility] 12-11-2020 03:34-0400 Heart rate 94 /min No Pcp Required [facility] 12-11-2020 03:34-0400 Respiratory rate 18 /min No Pcp Required [facility] 12-11-2020 03:34-0400 SaO2% (BldA) [Mass fraction] 98 % No Pcp Required [facility] 12-11-2020 03:34-0400 Systolic blood pressure 121 mm[Hg] No Pcp Required [facility] 11-26-2020 00:07-0400 Diastolic blood pressure 69 mm[Hg] Raj Manning MD Work Phone: [employer] Work Phone: 11-26-2020 00:07-0400 Heart rate 74 /min Raj Manning MD Work Phone: [employer] Work Phone: 11-26-2020 00:07-0400 Respiratory rate 16 /min Raj Manning MD Work Phone: [employer] Work Phone: 11-26-2020 00:07-0400 SaO2% (BldA) [Mass fraction] 99 % Raj Manning MD Work Phone: [employer] Work Phone: 11-26-2020 00:07-0400 Systolic blood pressure 134 mm[Hg] Raj Manning MD Work Phone: [employer] Work Phone: 11-25-2020 21:20-0400 Body height 170.2 cm Raj Manning MD Work Phone: [employer] Work Phone: 11-25-2020 21:20-0400 Body mass index (BMI) [Ratio] 34.46 kg/m2 Raj Manning MD Work Phone: [employer] Work Phone: 11-25-2020 21:20-0400 Body temperature 98.1 [degF] Raj Manning MD Work Phone: [employer] Work Phone: 11-25-2020 21:20-0400 Body weight 99.79 kg Raj Manning MD Work Phone: [employer] Work Phone: 11-19-2020 22:38-0400 Diastolic blood pressure 75 mm[Hg] Ludin Pay DO Work Phone: [employer] 11-19-2020 22:38-0400 Heart rate 90 /min Ludin Pay DO Work Phone: [employer] 11-19-2020 22:38-0400 Respiratory rate 16 /min Ludin Pay DO Work Phone: [employer] 11-19-2020 22:38-0400 SaO2% (BldA) [Mass fraction] 97 % Ludin Pay DO Work Phone: [employer] 11-19-2020 22:38-0400 Systolic blood pressure 132 mm[Hg] Ludin Pay DO Work Phone: [employer] 11-19-2020 20:07-0400 Body height 170.2 cm Ludin Pay DO Work Phone: [employer] 11-19-2020 20:07-0400 Body mass index (BMI) [Ratio] 34.46 kg/m2 Ludin Pay DO Work Phone: [employer] 11-19-2020 20:07-0400 Body weight 99.79 kg Ludin Pay DO Work Phone: [facility] 11-19-2020 20:06-0400 Body temperature 98.2 [degF] Ludin Thomas DO Work Phone: [facility] 10-25-2020 11:30-0400 Diastolic blood pressure 89 mm[Hg] No Pcp Required [facility] 10-25-2020 11:30-0400 Heart rate 87 /min No Pcp Required [facility] 10-25-2020 11:30-0400 Respiratory rate 16 /min No Pcp Required [facility] 10-25-2020 11:30-0400 SaO2% (BldA) [Mass fraction] 98 % No Pcp Required [facility] 10-25-2020 11:30-0400 Systolic blood pressure 135 mm[Hg] No Pcp Required [facility] 10-25-2020 07:30-0400 Body temperature 97.7 [degF] No Pcp Required [facility] 10-18-2020 19:55-0400 Diastolic blood pressure 65 mm[Hg] Lynnette Beth MD Work Phone: [place] 10-18-2020 19:55-0400 Heart rate 108 /min Lynnette Beth MD Work Phone: [place] 10-18-2020 19:55-0400 Respiratory rate 18 /min Lynnette Beth MD Work Phone: [place] 10-18-2020 19:55-0400 SaO2% (BldA) [Mass fraction] 96 % Lynnette Beth MD Work Phone: [place] 10-18-2020 19:55-0400 Systolic blood pressure 136 mm[Hg] Lynnette Beth MD Work Phone: [place] 10-18-2020 19:04-0400 Body height 170.2 cm Lynnette Beth MD Work Phone: [place] 10-18-2020 19:04-0400 Body mass index (BMI) [Ratio] 36.02 kg/m2 Lynnette Beth MD Work Phone: [place] 10-18-2020 19:04-0400 Body temperature 98.91 [degF] Lynnette Beth MD Work Phone: [place] 10-18-2020 19:04-0400 Body weight 104.33 kg Lynnette Beth MD Work Phone: [place] 10-16-2020 23:02-0400 Diastolic blood pressure 80 mm[Hg] Lynnette Beth MD Work Phone: [place] 10-16-2020 23:02-0400 Heart rate 98 /min Lynnette Beth MD Work Phone: [place] 10-16-2020 23:02-0400 SaO2% (BldA) [Mass fraction] 100 % Lynnette Beth MD Work Phone: [place] 10-16-2020 23:02-0400 Systolic blood pressure 139 mm[Hg] Lynnette Beth MD Work Phone: [place] 10-16-2020 22:30-0400 Respiratory rate 16 /min Lynnette Beth MD Work Phone: [place] 10-16-2020 19:50-0400 Body height 170.2 cm Lynnette Beth MD Work Phone: [place] 10-16-2020 19:50-0400 Body mass index (BMI) [Ratio] 36.02 kg/m2 Lynnette Beth MD Work Phone: [place] 10-16-2020 19:50-0400 Body temperature 98.49 [degF] Lynnette Beth MD Work Phone: [place] 10-16-2020 19:50-0400 Body weight 104.33 kg Lynnette Beth MD Work Phone: [place] 10-01-2020 22:05-0400 Body Temperature 98.91 [degF] [facility] Work Phone: 10-01-2020 22:05-0400 BP Diastolic 74 mm[Hg] [facility] Work Phone: 10-01-2020 22:05-0400 BP Systolic 128 mm[Hg] Ezekiel Burt [employer] Work Phone: 10-01-2020 22:05-0400 Pulse (Heart Rate) 99 /min [facility] [employer] Work Phone: 10-01-2020 22:05-0400 Pulse Oximetry 98 % Ezekielroxane Burt [employer] Work Phone: 10-01-2020 22:05-0400 Respiratory Rate 20 /min Ezekiel Burt [employer] Work Phone: 10-01-2020 19:27-0400 BMI (Body Mass Index) 36.02 kg/m2 Ezekiel Jeffers [employer] Work Phone: 10-01-2020 19:27-0400 Body weight 104.33 kg [facility] [employer] Work Phone: 10-01-2020 19:27-0400 Height 170.2 cm [facility] [employer] Work Phone: 09-27-2020 01:03-0400 BP Diastolic 75 mm[Hg] Skye Jones [employer] Work Phone: 09-27-2020 01:03-0400 BP Systolic 129 mm[Hg] Skye Jones [employer] Work Phone: 09-27-2020 01:03-0400 Pulse (Heart Rate) 94 /min Skyelazara Jones [employer] Work Phone: 09-27-2020 01:03-0400 Pulse Oximetry 98 % Skyelazara Jones [employer] Work Phone: 09-27-2020 01:03-0400 Respiratory Rate 20 /min Skyelazara Jones [employer] Work Phone: 09-26-2020 23:47-0400 BMI (Body Mass Index) 36.02 kg/m2 Skye Jones [employer] Work Phone: 09-26-2020 23:47-0400 Body weight 104.33 kg Skye Jones [employer] Work Phone: 09-26-2020 23:47-0400 Height 170.2 cm [facility] [employer] Work Phone: 09-20-2020 23:45-0400 BP Diastolic 67 mm[Hg] [facility] 09-20-2020 23:45-0400 BP Systolic 117 mm[Hg] [facility] 09-20-2020 21:25-0400 BMI (Body Mass Index) 36.02 kg/m2 [facility] 09-20-2020 21:25-0400 Body weight 104.[address] [facility] 09-20-2020 21:25-[address] [facility] 09-20-2020 21:24-0400 Body Temperature 98.2 [degF] [facility] 09-20-2020 21:24-0400 Pulse (Heart Rate) 100 /min [facility] 09-20-2020 21:24-0400 Pulse Oximetry 99 % [facility] 09-20-2020 21:24-0400 Respiratory Rate 16 /min [facility] 09-09-2020 22:45-0400 BP Diastolic 82 mm[Hg] [facility] 09-09-2020 22:45-0400 BP Systolic 147 mm[Hg] [facility] 09-09-2020 22:45-0400 Pulse (Heart Rate) 101 /min [facility] 09-09-2020 22:45-0400 Pulse Oximetry 95 % [facility] 09-09-2020 22:45-0400 Respiratory Rate 16 /min [facility] 09-09-2020 20:52-0400 BMI (Body Mass Index) 36.02 kg/m2 [facility] 09-09-2020 20:52-0400 Body Temperature 98.29 [degF] [facility] 09-09-2020 20:52-0400 Body weight 104.33 kg [facility] 09-09-2020 20:52-0400 Height 170.2 cm [facility] 08-15-2020 00:00-0500 Pulse Oximetry 97 % [facility] 08-14-2020 22:50-0500 BP Diastolic 92 mm[Hg] [facility] 08-14-2020 22:50-0500 BP Systolic 142 mm[Hg] [facility] 08-14-2020 22:50-0500 Pulse (Heart Rate) 97 /min [facility] 08-14-2020 22:49-0500 Respiratory Rate 16 /min [facility] 08-14-2020 20:29-0500 BMI (Body Mass Index) 36.81 kg/m2 [facility] 08-14-2020 20:29-0500 Body Temperature 98.29 [degF] [facility] 08-14-2020 20:29-0500 Body weight 106.59 kg [facility] 07-16-2020 20:15-0500 Body Temperature 98.49 [degF] [facility] 07-16-2020 20:15-0500 BP Diastolic 82 mm[Hg] [facility] 07-16-2020 20:15-0500 BP Systolic 130 mm[Hg] [facility] 07-16-2020 20:15-0500 Pulse (Heart Rate) 104 /min [facility] 07-16-2020 20:15-0500 Pulse Oximetry 99 % [facility] 07-16-2020 20:15-0500 Respiratory Rate 18 /min [facility] 07-16-2020 17:37-0500 BMI (Body Mass Index) 39.16 kg/m2 [facility] 07-16-2020 17:37-0500 Body weight 113.4 kg [facility] 07-16-2020 17:37-0500 Height 170.2 cm Dominik Lucas [place] 07-08-2020 21:30-0500 BP Diastolic 71 mm[Hg] Cristi Feng [place] 07-08-2020 21:30-0500 BP Systolic 135 mm[Hg] Cristi Feng [place] 07-08-2020 21:30-0500 Pulse Oximetry 95 % Cristi Feng [place] 07-08-2020 21:00-0500 Pulse (Heart Rate) 111 /min Cristi Feng [place] 07-08-2020 20:00-0500 Body Temperature 98.71 [degF] Cristi Feng [place] 07-08-2020 20:00-0500 Respiratory Rate 18 /min Cristi Feng [place] 07-01-2020 23:17-0500 BP Diastolic 64 mm[Hg] [facility] [place] 07-01-2020 23:17-0500 BP Systolic 142 mm[Hg] [facility] [place] 07-01-2020 23:17-0500 Pulse (Heart Rate) 106 /min [facility] 07-01-2020 23:17-0500 Pulse Oximetry 93 % [facility] [place] 07-01-2020 23:17-0500 Respiratory Rate 20 /min [facility] [place] 07-01-2020 22:08-0500 BMI (Body Mass Index) 40.1 kg/m2 [facility] 07-01-2020 22:08-0500 Body Temperature 98.1 [degF] [facility] [place] 07-01-2020 22:08-0500 Body weight 116.12 kg [facility] [place] 07-01-2020 22:08-0500 Height 170.2 cm [facility] [place] 05-28-2020 08:08-0500 Body Temperature 97.2 [degF] [facility] [place] 05-28-2020 08:08-0500 BP Diastolic 74 mm[Hg] [facility] , [place] 05-28-2020 08:08-0500 BP Systolic 129 mm[Hg] [facility] [place] 05-28-2020 08:08-0500 Pulse (Heart Rate) 98 /min Saul [facility] [place] 05-28-2020 08:08-0500 Pulse Oximetry 93 % Saul [facility] [place] 05-28-2020 08:08-0500 Respiratory Rate 17 /min Saul [facility], [place] 05-28-2020 02:31-0500 BMI (Body Mass Index) 43.07 kg/m2 [facility] 05-28-2020 02:31-0500 Body weight 124.74 kg Saul [facility] [place] 05-27-2020 21:46-0500 Height 170.2 cm Saul [facility] [place] 05-25-2020 18:33-0500 Pulse (Heart Rate) 114 /min Yanely [facility], [place] 05-25-2020 18:33-0500 Respiratory Rate 19 /[facility] [place] 05-25-2020 17:52-0500 BP Diastolic 95 mm[Hg] [facility] , [place] 05-25-2020 17:52-0500 BP Systolic 140 mm[Hg] [facility] [place] 05-25-2020 17:52-0500 Pulse Oximetry 96 % [facility] [place] 05-25-2020 16:15-0500 BMI (Body Mass Index) 40.41 [facility] [place] 05-25-2020 16:15-0500 Body Temperature 98.49 [degF] [facility] [place] 05-25-2020 16:15-0500 Body [facility] [place] 05-25-2020 16:15-0500 Height 170.2 cm [facility] , [place] 05-18-2020 08:33-0500 Body Temperature 97.5 [degF] Kristi Craig [facility], [place] 05-18-2020 08:33-0500 BP Diastolic 64 mm[Hg] Kristi Craig [facility] [place] 05-18-2020 08:33-0500 BP Systolic 111 mm[Hg] Kristirigo Craig [facility] [place] 05-18-2020 08:33-0500 Pulse (Heart Rate) 96 /min Kristirigo Craig [facility] [place] 05-18-2020 08:33-0500 Pulse Oximetry 91 % Kristi Craig [facility] [place] 05-17-2020 08:50-0500 Respiratory Rate 20 /min Kristirigo Craig [facility] [place] 05-15-2020 08:33-0500 BMI (Body Mass Index) 42.6 kg/m2 Kristirigo Craig [facility] [place] 05-15-2020 08:33-0500 Body weight 123.[address] [facility] [place] 05-05-2020 13:53-0500 Height 170.[address] [facility] , [place] 05-01-2020 17:30-0500 BP Diastolic 70 mm[facility]Hg] [facility] [place] 05-01-2020 17:30-0500 BP Systolic 117 mm[Hg] [facility] , [place] 05-01-2020 17:30-0500 Pulse [facility]xim[facility] 91 [facility] [place] 05-01-2020 17:30-0500 Respiratory Rate 22 /min Yanely [facility], [place] 05-01-2020 15:00-0500 Body Temperature 98.6 [degF] [facility] [place] 05-01-2020 15:00-0500 Pulse (Heart Rate) 76 /min [facility] 05-01-2020 13:11-0500 BMI (Body Mass Index) 42.29 kg/m2 Yanely [facility], [place] 05-01-2020 13:11-0500 Body weight 122.47 kg [facility] [place] 05-01-2020 13:11-0500 Height 170.2 cm [facility] [place] 04-30-2020 06:46-0500 BMI (Body Mass Index) 42.29 kg/m2 Skye Jones [facility] [place] 04-30-2020 06:46-0500 Body Temperature 101.19 [degF] [facility] [place] 04-30-2020 06:46-0500 Body weight 122.47 kg [facility]e [facility] [place] [facility] [place] 04-30-2020 06:46-0500 BP Diastolic 62 mm[Hg] [facility] [place] [facility] [place] 04-30-2020 06:46-0500 BP Systolic 149 mm[Hg] [facility] [place] 04-30-2020 06:46-0500 Height 170.2 cm Skye Burt [facility] [place] , [place] 04-30-2020 06:46-0500 Pulse (Heart Rate) 109 /min [facility]e [facility] [place] 04-30-2020 06:46-0500 Pulse Oximetry 97 % Skye Burt [facility] , [place] 04-30-2020 06:46-0500 Respiratory Rate 18 /min [facility] 04-29-2020 12:30-0500 BP Diastolic 70 mm[Hg] Raj Burt [facility] , [place] 04-29-2020 12:30-0500 BP Systolic 113 mm[Hg] Raj Burt [facility] , [place] 04-29-2020 12:30-0500 Pulse (Heart Rate) 95 /min Raj Burt [facility], [place] 04-29-2020 12:30-0500 Pulse Oximetry 98 % Raj Burt [facility] , [place] 04-29-2020 12:30-0500 Respiratory Rate 16 /min Raj Burt [facility] , [place] 04-29-2020 11:07-0500 BMI (Body Mass Index) 42.29 kg/m2 Raj Burt [facility], [place] 04-29-2020 11:07-0500 Body Temperature 98.29 [degF] [facility] 04-29-2020 11:07-0500 Body weight 122.47 kg Raj Burt [facility] , [place] 04-29-2020 11:07-0500 Height 170.2 cm Raj Burt [facility] , [place] 03-20-2020 20:41-0400 BMI (Body Mass Index) 42.29 kg/m2 Skye Burt [facility], [place] 03-20-2020 20:41-0400 Body Temperature 98.91 [degF] [facility] 03-20-2020 20:41-0400 Body weight 122.47 kg [facility] [place] 03-20-2020 20:41-0400 BP Diastolic 72 mm[Hg] [facility] [place] 03-20-2020 20:41-0400 BP Systolic 182 mm[Hg] [facility] [place] 03-20-2020 20:41-0400 Height 170.2 cm [facility] [place] 03-20-2020 20:41-0400 Pulse (Heart Rate) 128 /min [facility] [place] 03-20-2020 20:41-0400 Pulse Oximetry 98 % [facility] [place] 03-20-2020 20:41-0400 Respiratory Rate 19 /min [facility] 03-05-2020 01:04-0400 BP Diastolic 76 mm[Hg] [facility] [place] 03-05-2020 01:04-0400 BP Systolic 122 mm[Hg] [facility] [place] 03-05-2020 01:04-0400 Pulse (Heart Rate) 113 /min [facility] [place] 03-05-2020 01:04-0400 Pulse Oximetry 95 % [facility] [place] 03-05-2020 01:04-0400 Respiratory Rate 20 /min [facility] 03-04-2020 21:23-0400 BMI (Body Mass Index) 42.29 kg/m2 [facility] [place] 03-04-2020 21:23-0400 Body Temperature 98.1 [degF] [facility] [place] 03-04-2020 21:23-0400 Body weight 122.47 kg [facility] [place] 03-04-2020 21:23-0400 Height 170.2 cm [facility] [place] 02-19-2020 20:38-0400 BP Diastolic 81 mm[Hg] [facility] [place] 02-19-2020 20:38-0400 BP Systolic 142 mm[Hg] [facility] [place] 02-19-2020 20:38-0400 Pulse (Heart Rate) 118 /min Sesar Burt [facility], [place] 02-19-2020 20:38-0400 Pulse Oximetry 99 % Sesar Burt [facility] , [place] 02-19-2020 19:09-0400 BMI (Body Mass Index) 42.29 kg/m2 Sesar [facility] [place] [place] 02-19-2020 19:09-0400 Body Temperature 98.1 [degF] [facility] 02-19-2020 19:09-0400 Body weight 122.47 kg Sesar Burt [facility] , [place] 02-19-2020 19:09-0400 Height 170.2 cm Sesar Burt [facility] , [place] 02-19-2020 19:09-0400 Respiratory Rate 19 /min [facility] 02-17-2020 02:40-0400 BP Diastolic 81 mm[Hg] Rickey [facility] [place] 02-17-2020 02:40-0400 BP Systolic 146 mm[Hg] Rickey Burt [facility] , [place] 02-17-2020 02:40-0400 Pulse (Heart Rate) 130 /min Rickey Burt [facility], [place] 02-17-2020 02:40-0400 Pulse Oximetry 95 % Rickey Burt [facility] , [place] 02-17-2020 02:40-0400 Respiratory Rate 18 /min Rickey [facility] [place] 02-16-2020 21:42-0400 BMI (Body Mass Index) 42.29 kg/m2 Rickey Burt [facility], [place] 02-16-2020 21:42-0400 Body Temperature 99.19 [degF] [facility] 02-16-2020 21:42-0400 Body weight 122.47 kg Rickey Burt [facility] , [place] 02-16-2020 21:42-0400 Height 170.[address] [facility] , [place] 01-19-2020 17:13-0400 BMI (Body Mass Index) 42.29 kg/m2 Jone Meyers [place]-Eyspxwliqxbsmv-V [facility] Work Phone: 01-19-2020 17:13-0400 Body weight 122.47 kg Jone Meyers -Otolaryngolog y-S [facility] Work Phone: 01-19-2020 17:13-0400 BSA (Body Surface Area) 2.3 m2 Jone Meyers FW-Jszsfopquxrjji-Q [facility] Work Phone: 01-19-2020 17:13-0400 Height 170.18 cm Jone Meyers -Otolaryngolog y-S [facility] Work Phone: 01-14-2020 03:24-0400 Body Temperature 97.59 [degF] [facility] [place] 01-14-2020 03:24-0400 BP Diastolic 76 mm[Hg] [facility] , [place] 01-14-2020 03:24-0400 BP Systolic 122 mm[Hg] [facility] , [place] 01-14-2020 03:24-0400 Pulse (Heart Rate) 98 /min [facility], [place] 01-14-2020 03:24-0400 Pulse Oximetry 98 % [facility] , [place] 01-14-2020 03:24-0400 Respiratory Rate 20 /min [facility] [place] 01-13-2020 22:00-0400 BMI (Body Mass Index) 51.21 kg/m2 [facility] [place] 01-13-2020 22:00-0400 Body [facility] 127.01 [facility] [place] 01-08-2020 11:25-0400 BP Diastolic 92 mm[Hg] [facility] [place] 01-08-2020 11:25-0400 BP Systolic 157 mm[Hg] [facility] , [place] 01-08-2020 11:25-0400 Pulse (Heart Rate) 118 /min [facility] [place] 01-08-2020 11:25-0400 Pulse Oximetry 99 % Sesar Damon [facility] , [place] 01-08-2020 11:25-0400 Respiratory Rate 18 /min [facility] [place] 01-08-2020 09:52-0400 BMI (Body Mass Index) 51.21 kg/m2 [facility] [place] 01-08-2020 09:52-0400 Body Temperature 99.1 [degF] [facility] [place] 01-08-2020 09:52-0400 Body weight 127.[address] [facility] , [place] 01-08-2020 09:52-0400 Height 157.5 cm [facility] [place] 10-20-2019 04:00-0400 BMI (Body Mass Index) 42.29 kg/m2 [facility] [place] 10-20-2019 04:00-0400 Body Temperature 97.5 [degF] [facility] [place] 10-20-2019 04:00-0400 Body weight 122.[address] [facility] , [place] 10-20-2019 04:00-0400 BP Diastolic 88 mm[Hg] [facility] , [place] 10-20-2019 04:00-0400 BP Systolic 151 mm[Hg] [facility] , [place] 10-20-2019 04:00-0400 Pulse (Heart Rate) 111 /min [facility] [place] 10-20-2019 04:00-0400 Pulse Oximetry 98 % Skye [facility] , [place] 10-20-2019 04:00-0400 Respiratory Rate 20 /min [facility]e [facility] [place] 08-18-2019 20:51-0500 BMI (Body Mass Index) 41.97 kg/m2 [facility] [place] 08-18-2019 20:51-0500 Body Temperature 98.2 [degF] [facility] [place] 08-18-2019 20:51-0500 Body weight 121.56 kg Skye [facility]BR[facility] , [place] 08-18-2019 20:51-0500 BP Diastolic 74 mm[Hg] [facility] [place] 08-18-2019 20:51-0500 BP Systolic 148 mm[Hg] Skye Jones [employer] [facility] , [place] 08-18-2019 20:51-0500 Height 170.2 cm Skye Jones [employer] [facility] , [place] 08-18-2019 20:51-0500 Pulse (Heart Rate) 110 /min [facility] [place] 08-18-2019 20:51-0500 Pulse Oximetry 96 % Skye [facility]BR[facility] , [place] 08-18-2019 20:51-0500 Respiratory Rate 20 /min [facility] [place] [place] 07-14-2019 06:00-0500 Diastolic blood pressure 82 mm[Hg] Rickey Davis MD Work Phone: [employer] Work Phone: 07-14-2019 06:00-0500 Heart rate 102 /min Rickey Davis MD Work Phone: [employer] Work Phone: 07-14-2019 06:00-0500 Respiratory rate 18 /min Rickey Davis MD Work Phone: [employer] Work Phone: 07-14-2019 06:00-0500 SaO2% (BldA) [Mass fraction] 95 % Rickey Davis MD Work Phone: [employer] Work Phone: 07-14-2019 06:00-0500 Systolic blood pressure 125 mm[Hg] Rickey Davis MD Work Phone: [employer] Work Phone: 07-14-2019 04:22-0500 Body height 170.2 cm Rickey Davis MD Work Phone: [employer] Work Phone: 07-14-2019 04:22-0500 Body mass index (BMI) [Ratio] 40.72 kg/m2 Rickey Davis MD Work Phone: [employer] Work Phone: 07-14-2019 04:22-0500 Body temperature 98.1 [degF] Rickey Davis MD Work Phone: [employer] Work Phone: 07-14-2019 04:22-0500 Body weight 117.94 kg Rickey Davis MD Work Phone: [employer] Work Phone: 07-11-2019 04:14-0500 Diastolic blood pressure 75 mm[Hg] Abdulkadir Edouard [employer] Work Phone: 07-11-2019 04:14-0500 Heart rate 126 /min Abdulkadir Edouard [employer] Work Phone: 07-11-2019 04:14-0500 Systolic blood pressure 128 mm[Hg] Abdulkadir Tariessence [employer] Work Phone: 07-11-2019 04:12-0500 Body height 170.2 cm Abdulkadir Tariessence [employer] Work Phone: 07-11-2019 04:12-0500 Body mass index (BMI) [Ratio] 40.72 kg/m2 Abdulkadir Tariessence [employer] Work Phone: 07-11-2019 04:12-0500 Body temperature 97.3 [degF] Abdulkadir Tariessence [employer] Work Phone: 07-11-2019 04:12-0500 Body weight 117.94 kg Abdulkadir Tariessence [employer] Work Phone: 07-11-2019 04:12-0500 Respiratory rate 18 /min Abdulkadir Edouard [employer] Work Phone: 07-11-2019 04:12-0500 SaO2% (BldA) [Mass fraction] 98 % Abdulkadir Edouard [employer] Work Phone: 07-09-2019 23:40-0500 Diastolic blood pressure 68 mm[Hg] Gely Marshall MD Work Phone: [employer] Work Phone: 07-09-2019 23:40-0500 Heart rate 120 /min Gely Marshall MD Work Phone: [employer] Work Phone: 07-09-2019 23:40-0500 Respiratory rate 16 /min Gely Marshall MD Work Phone: [employer] Work Phone: 07-09-2019 23:40-0500 SaO2% (BldA) [Mass fraction] 96 % Gely Marshall MD Work Phone: [employer] Work Phone: 07-09-2019 23:40-0500 Systolic blood pressure 110 mm[Hg] Gely Marshall MD Work Phone: [employer] Phone: 07-09-2019 18:23-0500 Body height 170.2 cm Gely Marshall MD Work Phone: [employer] Work Phone: 07-09-2019 18:23-0500 Body mass index (BMI) [Ratio] 40.72 kg/m2 Gely Marshall MD Work Phone: [employer] Work Phone: 07-09-2019 18:23-0500 Body temperature 97.3 [degF] Gely Marshall MD Work Phone: [employer] Work Phone: 07-09-2019 18:23-0500 Body weight 117.94 kg Gely Marshall MD Work Phone: [employer] Phone: 04-26-2019 14:34-0400 BMI (Body Mass Index) 41.04 kg/m2 [facility] [place] 04-26-2019 14:34-0400 Body Temperature 98.6 [degF] [facility] [place] 04-26-2019 14:34-0400 Body weight 118.[address] [facility] , [place] 04-26-2019 14:34-0400 BP Diastolic 83 mm[Hg] Raj Manning [facility] , [place] 04-26-2019 14:34-0400 BP Systolic 138 mm[Hg] Raj Manning [facility] , [place] 04-26-2019 14:34-0400 Height 170.[address] [facility] , [place] 04-26-2019 14:34-0400 Pulse (Heart Rate) 116 /min Raj Manning [facility], [place] 04-26-2019 14:34-0400 Pulse Oximetry 97 % Raj Manning [facility] , [place] 04-26-2019 14:34-0400 Respiratory Rate 20 /min Raj Manning [facility], [place] 04-22-2019 07:23-0400 Body Temperature 97.9 [degF] Abdulkadir Edouard [facility], [place] 04-22-2019 07:23-0400 BP Diastolic 60 mm[Hg] [facility]ulkadir [facility], [place] 04-22-2019 07:23-0400 BP Systolic 107 mm[Hg] [facility]ir [facility], [place] 04-22-2019 07:23-0400 Pulse (Heart Rate) 80 /min [facility]ir [facility] hospital[facility], [place] 04-22-2019 07:23-0400 Pulse Oximetry 98 % [facility] [place] 04-22-2019 07:23-0400 Respiratory Rate 16 /min [facility]ulkadir [facility], [place] 04-17-2019 20:55-0400 BMI (Body Mass Index) 42.29 kg/m2 [facility] [place] 04-17-2019 20:55-0400 Body weight 122.47 kg [facility] [place] 04-17-2019 20:55-0400 Height 170.[address] [facility], [place] 04-12-2019 21:00-0400 BMI (Body Mass Index) 42.29 kg/m2 Skye Jones [facility], [place] 04-12-2019 21:00-0400 Body Temperature 99 [degF] [facility] [place] 04-12-2019 21:00-0400 Body weight 122.47 kg [facility] [place] 04-12-2019 21:00-0400 BP Diastolic 78 mm[Hg] [facility] [place] 04-12-2019 21:00-0400 BP Systolic 131 mm[Hg] Skye [facility] , [place] 04-12-2019 21:00-0400 Height 170.2 cm Skye [facility] , [place] 04-12-2019 21:00-0400 Pulse (Heart Rate) 114 /min [facility] [place] 04-12-2019 21:00-0400 Pulse Oximetry 97 % [facility] [place] 04-12-2019 21:00-0400 Respiratory Rate 20 /min [facility] [place] 04-10-2019 16:44-0400 BP Diastolic 75 mm[Hg] [facility] [place] 04-10-2019 16:44-0400 BP Systolic 138 mm[Hg] [facility] [place] 04-10-2019 16:44-0400 Pulse (Heart Rate) 101 /min [facility], [place] 04-10-2019 16:44-0400 Pulse Oximetry 100 % [facility] [place] 04-10-2019 16:44-0400 Respiratory Rate 18 /[facility] [place] 04-10-2019 13:46-0400 BMI (Body Mass Index) 43.07 kg/m2 [facility] [place] 04-10-2019 13:46-0400 Body Temperature 98.71 [degF] Sesar Burt [facility], [place] 04-10-2019 13:46-0400 Body weight 124.[address] [facility] , [place] 04-10-2019 13:46-0400 Height 170.2 cm [facility] [place] 04-05-2019 21:51-0400 BP Diastolic 84 mm[Hg] Raj [facility] [place] 04-05-2019 21:51-0400 BP Systolic 160 mm[Hg] Raj Manning [facility] , [place] 04-05-2019 21:51-0400 Pulse (Heart Rate) 98 /min Raj Manning [facility], [place] 04-05-2019 21:51-0400 Pulse Oximetry 98 % Raj Burt [facility] , [place] 04-05-2019 21:51-0400 Respiratory Rate 16 /min Raj Burt [facility], [place] 04-05-2019 20:43-0400 BMI (Body Mass Index) 43.07 kg/m2 Raj Manning [facility], [place] 04-05-2019 20:43-0400 Body Temperature 98.49 [degF] [facility] [place] 04-05-2019 20:43-0400 Body weight 124.74 kg aRj [facility]Ad[facility] , [place] 04-05-2019 20:43-0400 Height 170.2 cm [facility] [place] 02-28-2019 16:22-0400 Body Temperature 97.3 [degF] Raj Burt [facility], [place] 02-28-2019 13:05-0400 BMI (Body Mass Index) 43.85 kg/m2 Raj Manning [facility], [place] 02-28-2019 13:05-0400 Body weight 127.[address] [facility] , [place] 02-28-2019 13:05-0400 BP Diastolic 80 mm[Hg] Raj Manning [facility] , [place] 02-28-2019 13:05-0400 BP Systolic 168 mm[Hg] Raj Manning [facility] , [place] 02-28-2019 13:05-0400 Height 170.[address] [facility] , [place] 02-28-2019 13:05-0400 Pulse (Heart Rate) 130 /min Raj Burt [facility], [place] 02-28-2019 13:05-0400 Pulse Oximetry 96 % Raj Burt [facility] , [place] 02-28-2019 13:05-0400 Respiratory Rate 20 /min [facility] [place] Encounters Encounter Date Encounter Type Care Provider Facility Start: 07-11-2023 End: 07-12-2023 Emergency department patient visit Sybil Muhammad [facility] Start: 07-08-2023 End: 07-09-2023 ambulatory SKYE JONES [facility] Start: 07-08-2023 End: 07-09-2023 Subsequent hospital visit by physician Yoly Bro MD Work Phone: [facility] [id number] Telemetry Comment on above: Post-operative pain (Primary Dx); Acute bursitis of left shoulder Start: 07-07-2023 End: 07-08-2023 Emergency department patient visit Skye Jones Facility:[facility] Start: 07-07-2023 End: 07-08-2023 Emergency department patient visit CERTIFIED PROSTHETIST VICE PRESIDENT Skye Jones Work Phone: [facility]-Emergency Room Work Phone: Start: 06-30-2023 End: 07-01-2023 ambulatory [facility] Start: 06-30-2023 End: 07-01-2023 Subsequent hospital visit by physician Ruben Abdi MD Work Phone: [facility] [id number] Ortho Tele Comment on above: Cervical stenosis of spine (Primary Dx); Pain Start: 06-23-2023 End: 06-28-2023 ambulatory [facility] Start: 06-07-2023 End: 06-07-2023 Emergency department patient visit Grey Putnam Facility[facility] Start: 06-06-2023 End: 06-07-2023 Emergency department patient visit Grey Putnam [facility] Start: 06-03-2023 End: 06-06-2023 ambulatory RUBEN Michael ARSENIOLINDA [facility] Start: 05-10-2023 End: 05-10-2023 Emergency department patient visit SKYE JONES [facility] Start: 04-27-2023 ambulatory Braulio Dukes Facility:[facility] Start: 04-21-2023 End: 04-21-2023 ambulatory Monica Ordaz Other [facility] Other Start: 04-21-2023 Office outpatient vi sit 15 minutes Monica Ordaz [facility] Start: 03-29-2023 End: 04-03-2023 Evaluation and management of inpatient Maxim Blair Facility:[facility] Start: 03-29-2023 End: 04-03-2023 Evaluation and management of inpatient CERTIFIED PROSTHETIST VICE PRESIDENT Skye Jones Work Phone: [facility] Work Phone: Start: 03-20-2023 End: 03-20-2023 ambulatory Skye Haileach Facility:[facility] Start: 03-20-2023 End: 03-20-2023 ambulatory PEE Jones Work Phone: [facility] Work Phone: Start: 03-20-2023 End: 03-20-2023 Discharged Recurring CERTIFIED PROSTHETIST VICE PRESIDENT Skye Jones Work Phone: [facility]-Physical Therapy [place] Start: 01-29-2023 End: 02-01-2023 Evaluation and management of inpatient Maxim Blair Facility:[facility] Start: 01-29-2023 End: 02-01-2023 Evaluation and management of inpatient CERTIFIED PROSTHETIST VICE PRESIDENT Skye Jones Work Phone: [facility] Work Phone: Start: 01-29-2023 End: 02-01-2023 PEE Jones Work Phone: [facility] Work Phone: Start: 01-26-2023 End: 01-26-2023 Emergency department patient visit Grey Putnam Facility[facility] Start: 01-26-2023 End: 01-26-2023 Emergency department patient visit Grey Putnam [facility] Start: 01-18-2023 End: 01-22-2023 Evaluation and management of inpatient Maxim Blair Facility:[facility] Start: 01-18-2023 End: 01-22-2023 Evaluation and management of inpatient PEE Jones Work Phone: [facility] Work Phone: Start: 01-18-2023 End: 01-22-2023 PEE Jones Work Phone: [facility] Work Phone: Start: 12-31-2022 End: 01-03-2023 Evaluation and management of inpatient Braulio Roseline Facility:[facility] Start: 12-31-2022 End: 01-03-2023 PEE Jones Work Phone: [facility] Work Phone: Start: 12-24-2022 PEE Carvalho Work Phone: [facility]Physical [facility] [place] Start: 12-14-2022 End: 12-17-2022 Evaluation and management of inpatient Maxim Blair Facility:[facility] Start: 12-14-2022 End: 12-17-2022 PEE Jones Work Phone: [facility] Work Phone: Start: 12-06-2022 PEE Carvalho Work Phone: [facility] Start: 12-06-2022 End: 12-10-2022 Evaluation and management of inpatient Maxim Pinto Facility:[facility] Start: 12-06-2022 End: 12-10-2022 Evaluation and management of inpatient CERTIFIED PROSTHETIST VICE PRESIDENT Skye Jones Work Phone: [facility]-[address] [place] [address] Work Phone: Start: 12-06-2022 End: 12-10-2022 CERTIFIED PROSTHETIST VICE PRESIDENT Skye Jones Work Phone: [facility]-[address] [place] [address] Work Phone: Start: 12-05-2022 End: 12-05-2022 Emergency department patient visit [facility]idgett [facility] Start: 12-04-2022 End: 12-04-2022 Emergency department patient visit Agatha Stinson Facility:[facility] Start: 11-27-2022 End: 11-28-2022 Emergency department patient visit Skye Jones Facility:[facility] Start: 11-27-2022 End: 11-27-2022 Emergency department patient visit PEE Jones Work Phone: [facility]-Emergency Room Work Phone: Start: 11-27-2022 End: 11-27-2022 PEE Jones Work Phone: [facility] Work Phone: Start: 11-22-2022 End: 11-23-2022 Emergency department patient visit Skye Jones Facility:[facility] Start: 11-22-2022 End: 11-23-2022 Emergency department patient visit PEE Jones Work Phone: [facility]Emergency [facility] Work Phone: Start: 11-22-2022 End: 11-23-2022 CERTIFIED PROSTHETIST VICE PRESIDENTAdrien Jones Work Phone: [facility]Emergency [facility] Work Phone: Start: 11-02-2022 End: 11-03-2022 Emergency department patient visit Grey SSorin Putnam Facility:[facility] Start: 11-02-2022 End: 11-03-2022 Emergency department patient visit Grey Preston Indy [facility] Start: 10-30-2022 End: 10-30-2022 Emergency department patient visit Eileen Lowry Facility:[facility] Start: 10-30-2022 End: 10-30-2022 Emergency department patient visit CERTIFIED PROSTHETIST VICE PRESIDENTAdrien Jones Work Phone: [facility]-Emergency [facility] Work Phone: Start: 10-30-2022 End: 10-30-2022 CERTIFIED PROSTHETIST VICE PRESIDENTAdrien Jones Work Phone: [facility] Work Phone: Start: 10-28-2022 End: 10-28-2022 Emergency department patient visit Skye Jones Facility:[facility] Start: 10-28-2022 End: 10-28-2022 Emergency department patient visit CERTIFIED PROSTHETIST VICE PRESIDENTAdrien Jones Work Phone: [facility] Work Phone: Start: 10-28-2022 End: 10-28-2022 CERTIFIED PROSTHETIST VICE PRESIDENTAdrien Jones Work Phone: [facility] Work Phone: Start: 10-27-2022 End: 10-28-2022 Emergency department patient visit Grey ClaudioSorin Putnam Facility:[facility] Start: 10-27-2022 End: 10-27-2022 Emergency department patient visit Grey ClaudioSorin Putnam [facility] Start: 10-19-2022 End: 10-19-2022 Emergency department patient visit Agatha Stinson Facility:[facility] Start: 10-19-2022 End: 10-19-2022 Emergency department patient visit Agatha Stinson [facility] Start: 10-16-2022 End: 10-16-2022 Emergency department patient visit OMI GELY HUNTLEY [facility] Start: 10-09-2022 End: 10-10-2022 Emergency department patient visit Debbie Doyle Facility:[facility] Start: 10-09-2022 End: 10-09-2022 Emergency department patient visit Debbie Doyle [facility] Start: 09-22-2022 End: 09-22-2022 Emergency department patient visit Sybil Muhammad Facility:[facility] Start: 09-21-2022 End: 09-22-2022 Emergency department patient visit Sybil Muhammad [facility] Start: 09-21-2022 End: 09-21-2022 Emergency department patient visit CERTIFIED PROSTHETIST VICE PRESIDENTAdrien Jones Work Phone: [facility]Emer[facility] Work Phone: Start: 09-17-2022 End: 09-17-2022 Emergency department patient visit SKYE JONES [place] [facility] Start: 09-17-2022 End: 09-17-2022 Emergency department patient visit Skye Jones CERTIFIED PROSTHETIST VICE PRESIDENT - DIRECTOR OF PHOTOGRAPHY Work Phone: [facility] ED Comment on above: Generalized abdomina l pain (Primary Dx); Anxiety state Start: 09-16-2022 End: 09-16-2022 Subsequent hospital visit by physician Leonela [facility] ED Comment on above: Canceled (Patient pr eference) Start: 09-08-2022 End: 09-09-2022 Emergency department patient visit Grey Putnam Facility[facility] Start: 09-08-2022 End: 09-08-2022 Emergency department patient visit Grey Putnam [facility] Start: 09-06-2022 End: 09-07-2022 Emergency department patient visit Giacomo Greene Jenna Facility:[facility] Start: 09-06-2022 End: 09-06-2022 Emergency department patient visit PEE Jones Work Phone: [facility] Work Phone: Start: 09-06-2022 End: 09-06-2022 CERTIFIED PROSTHETIST VICE PRESIDENT Skye Jones Work Phone: [facility]gency [facility] Work Phone: Start: 08-28-2022 End: 08-29-2022 Emergency department patient visit Skye Jones Facility:[facility] Start: 08-28-2022 End: 08-29-2022 Emergency department patient visit CERTIFIED PROSTHETIST VICE PRESIDENTAdrien Jones Work Phone: [facility] Work Phone: Start: 08-28-2022 End: 08-29-2022 CERTIFIED PROSTHETIST VICE PRESIDENTAdrien Jones Work Phone: [facility] Work Phone: Start: 08-24-2022 End: 08-25-2022 Emergency department patient visit SKYE JONES [facility] Start: 08-24-2022 End: 08-25-2022 Emergency department patient visit Skye Jones CERTIFIED PROSTHETIST VICE PRESIDENT - DIRECTOR OF PHOTOGRAPHY Work Phone: [facility] ED Comment on above: Right flank pain (Pr imary Dx); Hematuria, unspecified type; Renal colic Start: 08-22-2022 End: 08-23-2022 Emergency department patient visit Tristan Pyle Facility:[facility] Start: 08-22-2022 End: 08-23-2022 Emergency department patient visit PEE Jones Work Phone: [facility] Work Phone: Start: 08-22-2022 End: 08-23-2022 CERTIFIED PROSTHETIST VICE PRESIDENT Skye Jones Work Phone: [facility] Work Phone: Start: 08-18-2022 End: 08-19-2022 Emergency department patient visit Grey Putnam Facility[facility] Start: 08-18-2022 End: 08-18-2022 Emergency department patient visit Grey Putnam [facility] Start: 08-18-2022 End: 08-18-2022 ambulatory Skye Sims Jones Facility:[facility] Start: 08-18-2022 End: 08-18-2022 ambulatory CERTIFIED PROSTHETIST VICE PRESIDENT Skye Sims Jones Work Phone: [facility] Work Phone: Start: 08-18-2022 End: 08-18-2022 Discharged Recurring CERTIFIED PROSTHETIST VICE PRESIDENT Skye Jones Work Phone: [facility] [place] Start: 08-18-2022 Registered Recurring CERTIFIED PROSTHETIST VICE PRESIDENT Aashish le Jones Work Phone: [facility] [place] Start: 08-18-2022 CERTIFIED PROSTHETIST VICE PRESIDENT Skye Le ach Work Phone: [facility] [place] Start: 08-17-2022 End: 08-17-2022 Emergency department patient visit Skye Jones Facility:[facility] Start: 08-17-2022 End: 08-17-2022 Emergency department patient visit CERTIFIED PROSTHETIST VICE PRESIDENT Skye Jones Work Phone: [facility] Work Phone: Start: 08-17-2022 End: 08-17-2022 CERTIFIED PROSTHETIST VICE PRESIDENT Skye Jones Work Phone: [facility] Work Phone: Start: 08-15-2022 Registered Recurring CERTIFIED PROSTHETIST VICE PRESIDENT Aashish haile Jones Work Phone: [facility] [place] Start: 08-13-2022 End: 08-14-2022 Emergency department patient visit SKYE JONES [facility] Start: 08-13-2022 End: 08-13-2022 Emergency department patient visit Rickey Davis MD Work Phone: [facility] ED Comment on above: Flank pain (Primary Dx) Start: 08-13-2022 End: 08-13-2022 Emergency department patient visit Skyelazara Jones [facility] Start: 08-11-2022 End: 08-11-2022 Emergency department patient visit SKYE JONES [facility] Start: 08-08-2022 End: 08-09-2022 Emergency department patient visit Grey Putnam Facility:[facility] Start: 08-08-2022 End: 08-08-2022 Emergency department patient visit Grey Putnam [facility] Start: 08-04-2022 End: 08-05-2022 ambulatory SKYE JONES [facility] Start: 08-04-2022 End: 08-04-2022 Subsequent hospital visit by physician Leonela [employer] ED Comment on above: Arrived Start: 08-02-2022 End: 08-02-2022 Emergency department patient visit Skye Jones Facility:[facility] Start: 08-02-2022 End: 08-02-2022 Emergency department patient visit PEE Jones Work Phone: [facility]-Emergency [facility] Work Phone: Start: 08-02-2022 End: 08-02-2022 CERTIFIED PROSTHETIST VICE PRESIDENTAdrien Jones Work Phone: [facility]Emergency [facility] Work Phone: Start: 07-31-2022 Registered Recurring PEE Murray Work Phone: [facility] [place] Start: 07-21-2022 End: 07-22-2022 Emergency department patient visit Sena Garciairamkamaljit [facility] 21 Start: 07-17-2022 End: 07-18-2022 Emergency department patient visit Agatha Stinson Facility:[facility] Start: 07-17-2022 End: 07-17-2022 Emergency department patient visit Agatha Stinson [facility] Start: 07-10-2022 End: 07-11-2022 Emergency department patient visit SKYE JONES [facility] Start: 07-10-2022 End: 07-11-2022 Emergency department patient visit Skye Jones CERTIFIED PROSTHETIST VICE PRESIDENT - DIRECTOR OF PHOTOGRAPHY Work Phone: [facility] ED Comment on above: Right flank pain (Pr imary Dx); Nausea and vomiting, unspecified vomiting type Start: 07-03-2022 End: 07-04-2022 Emergency department patient visit PEE Jones Work Phone: [facility] Work Phone: Start: 07-03-2022 End: 07-04-2022 CERTIFIED PROSTHETIST VICE PRESIDENTAdrien Jones Work Phone: [facility]Emergency [facility] Work Phone: Start: 07-03-2022 Registered Recurring PEE Murray Work Phone: [facility] [place] Start: 06-19-2022 End: 06-19-2022 Emergency department patient visit Grey Putnam Facility:[facility] Start: 06-18-2022 End: 06-19-2022 Emergency department patient visit Grey Putnam [facility] Start: 06-08-2022 End: 06-09-2022 Emergency department patient visit PEE Jones Work Phone: [facility]Emergency [facility] Start: 06-08-2022 End: 06-09-2022 PEE Jones Work Phone: [facility] Work Phone: Start: 06-05-2022 Registered Recurring PEE Murray Work Phone: [facility] [place] Start: 05-27-2022 End: 05-28-2022 Emergency department patient visit CERTIFIED PROSTHETIST VICE PRESIDENTAdrien Jones Work Phone: [facility]Emergency Room Start: 05-14-2022 End: 05-15-2022 Emergency department patient visit SKYE JONES [facility] Start: 05-11-2022 End: 05-11-2022 Emergency department patient visit Agatha May Shantell [facility] Start: 05-01-2022 End: 05-01-2022 Emergency department patient visit CERTIFIED PROSTHETIST VICE PRESIDENTAdrien Cheung Jones Work Phone: [facility]-Emergency Room Start: 04-25-2022 End: 04-25-2022 Admission to same day surgery center Omi Watkins [facility] Start: 04-21-2022 End: 04-22-2022 Emergency department patient visit Grey Putnam [facility] Start: 04-15-2022 ambulatory Ms. Skye Jones Facility: Start: 04-15-2022 End: 04-15-2022 Patient encounter procedure Omi Watkins [facility] Start: 04-12-2022 End: 04-13-2022 Emergency department patient visit PEE Cheung Jones Work Phone: [facility]Emergency [facility] Start: 04-07-2022 End: 04-07-2022 Emergency department patient visit CERTIFIED PROSTHETIST VICE PRESIDENT Skye Karen Work Phone: [facility]Emergency [facility] Start: 03-31-2022 End: 04-01-2022 Emergency department patient visit PEE Jones Work Phone: [facility]Emergency Room Start: 03-12-2022 End: 03-12-2022 ambulatory Cassandra Claros Other [facility] Other Start: 03-12-2022 Office outpatient ne w 20 minutes Cassandra Claros [facility] Start: 03-08-2022 End: 03-08-2022 Emergency department patient visit [facility] Start: 02-25-2022 End: 02-26-2022 Emergency department patient visit PEE oJnes Work Phone: [facility]-Emergency Room Start: 02-07-2022 End: 02-07-2022 Emergency department patient visit [facility] Start: 01-18-2022 End: 01-18-2022 Emergency department patient visit [facility] Start: 01-13-2022 End: 01-14-2022 Emergency department patient visit [facility] Start: 12-06-2021 End: 12-06-2021 Emergency department patient visit PEE Jones Work Phone: [facility]-Emergency Room Start: 12-03-2021 End: 12-06-2021 Evaluation and management of inpatient [facility] Start: 12-03-2021 End: 12-06-2021 Evaluation and management of inpatient Cristi Feng MD Work Phone: [facility] Med Surg Oncology Start: 11-15-2021 End: 11-15-2021 Emergency department patient visit [facility] Start: 11-12-2021 End: 11-12-[address] ESMER CARPENTER Facility: Start: 11-07-2021 End: 11-09-2021 Subsequent hospital visit by physician Ishmael King Mri Room 1 [facility] Imaging MRI Comment on above: Cervical radiculopat hy; Cervical spondylosis without myelopathy Start: 10-17-2021 End: 10-17-2021 Emergency department patient visit CAROLINE HATCH [facility] Start: 09-30-2021 End: 10-01-2021 Emergency department patient visit PEE Jones Work Phone: [facility]-Emergency Room Start: 08-19-2021 End: 08-20-2021 Emergency department patient visit ROSHAN HONG RUPAL [facility] Start: 07-28-2021 End: 07-29-2021 ambulatory ISIDRA NJ MD Facility:[facility] Start: 07-09-2021 End: 07-09-2021 Emergency department patient visit PHYSICIAN [facility] Start: 06-25-2021 End: 06-25-2021 Office outpatient visit 15 minutes Genet FRANK Work Phone: [facility] Comment on above: Encounter for screen ing for COVID-19 (Primary Dx); Acute maxillary sinusitis, recurrence not specified Start: 06-13-2021 End: 06-14-2021 Emergency department patient visit PHYSICIAN [facility] Start: 06-10-2021 End: 06-10-2021 Emergency department patient visit Rickey Castle [facility] Emergency 14 Start: 05-28-2021 End: 05-28-2021 Emergency department patient visit PHYSICIAN [facility] Start: 04-23-2021 Evaluation and management of inpatient Gem Christopher [facility],PharmD [facility] Inpatient Pharm[facility] Start: 04-15-2021 End: 04-15-2021 Emergency department patient visit Yanely Coyle DO Work Phone: [facility] ED Comment on above: Right flank pain (Pr imary Dx); Acute cystitis with hematuria Start: 02-06-2021 End: 02-06-[address] [facility] Amb[facility] Start: 02-06-2021 End: 02-06-2021 Patient encounter procedure Tim Roper MD Work Phone: [facility] Comment on above: Kidney stone (Primar y Dx) Start: 01-31-2021 End: 02-02-2021 Emergency department patient visit Sena White MD Work Phone: [facility] Medical Observation Start: 01-14-2021 End: 01-14-2021 Emergency department patient visit [facility] Start: 12-27-2020 End: 12-27-2020 ambulatory ISIDRA NJ MD Facility:[facility] Start: 12-10-2020 End: 12-11-2020 Emergency department patient visit Dennis Aceves [facility] Emergency 09 Start: 12-04-2020 End: 12-04-2020 [facility] Start: 11-25-2020 End: 11-26-2020 Emergency department patient visit Raj Manning MD Work Phone: [facility] ED Comment on above: Pyelonephritis (Prim adonis Dx); Flank pain Start: 11-19-2020 End: 11-19-2020 Emergency department patient visit Ludin Thomas DO Work Phone: [facility] Emergency Medicine Start: 11-05-2020 End: 11-05-2020 ambulatory ISIDRA NJ MD Facility:[facility] Start: 10-24-2020 End: 10-25-2020 Emergency department patient visit Debbie Gonzalez [facility] Emergency 04 Start: 10-23-2020 End: 10-24-2020 ambulatory ISIDRA NJ MD Facility:[facility] Start: 10-18-2020 End: 10-18-2020 Emergency department patient visit Lynnette Beth MD Work Phone: [facility] Emergency Department Start: 10-16-2020 End: 10-17-2020 Emergency department patient visit Lynnette Beth MD Work Phone: [facility] Emergency Department Start: 10-11-2020 End: 10-12-2020 ambulatory QUINCY SORIA PA-C Facility:[facility] Start: 10-01-2020 End: 10-01-2020 Emergency department patient visit Ezekiel Jeffers Work Phone: [facility] ED Comment on above: Acute cystitis with hematuria (Primary Dx) Start: 09-26-2020 End: 09-27-2020 Emergency department patient visit Skye Jones [facility] ED Comment on above: Right upper quadrant abdominal pain (Primary Dx); Right flank pain Start: 09-20-2020 End: 09-20-2020 Emergency department patient visit Jose Muller Work Phone: [facility] Start: 09-09-2020 End: 09-09-2020 Emergency department patient visit Lynnette Zenaida Kirit Work Phone: [facility] Emergency Department Start: 08-14-2020 End: 08-15-2020 Emergency department patient visit Lynnette Estevez Kirit Work Phone: [facility] Emergency Department Comment on above: Generalized abdomina l pain (Primary Dx); Acute UTI Start: 07-16-2020 End: 07-16-2020 Emergency department patient visit Dominik Lucas Work Phone: [facility] Emergency Department Comment on above: Right flank pain (Pr imary Dx); Acute cystitis with hematuria Start: 07-08-2020 End: 07-08-2020 Emergency department patient visit Cristi Abelen Jung Work Phone: [facility] Emergency Department Comment on above: Acute UTI (Primary D x); Acute pyelonephritis Start: 07-01-2020 End: 07-01-2020 Emergency department patient visit Raj Abraham Work Phone: [facility] ED Comment on above: Acute cystitis witho ut hematuria (Primary Dx); Left flank pain Start: 05-27-2020 End: 05-28-2020 Emergency department patient visit Saul Pena Work Phone: [facility] Comment on above: Lactic acidosis (April steven Dx); Pneumonia due to COVID-19 virus; Hyperglycemia; Right flank pain; Hypoxia; Tachycardia Start: 05-25-2020 End: 05-25-2020 Emergency department patient visit Yanely Coyle Work Phone: [facility] ED Comment on above: Anxiety state (Prima ry Dx); Dyspnea, unspecified type Start: 05-05-2020 End: 05-18-2020 Evaluation and management of inpatient Kristi Craig Work Phone: [facility] Comment on above: Pneumonia due to COV ID-19 virus (Primary Dx); Anterior pleuritic pain in patient with COVID-19; COVID-19 virus infection; Costochondritis, acute; Anterior chest wall pain due to excessive coughing, and patient was COVID-19 positive, symptomatic.; Acute exacerbation of chronic generalized pain associated with significant psychosocial dysfunction; Uncontrolled type 2 diabetes mellitus with complication, with long-term current use of insulin (HCC) Start: 05-01-2020 End: 05-01-2020 Emergency department patient visit Yanely Coyle Work Phone: [facility] ED Comment on above: COVID-19 (Primary Dx ); Diarrhea, unspecified type; Hyperglycemia Start: 04-30-2020 End: 04-30-2020 Emergency department patient visit [facility] ED Comment on above: COVID-19 (Primary Dx ); Acute cystitis with hematuria Start: 04-29-2020 End: 04-29-2020 Emergency department patient visit Raj Manning Work Phone: [facility] ED Comment on above: Flank pain (Primary Dx) Start: 03-20-2020 End: 03-20-2020 Emergency department patient visit [facility] ED Start: 03-04-2020 End: 03-05-2020 Emergency department patient visit [facility] ED Comment on above: Right flank pain (Pr imary Dx); Non-intractable vomiting with nausea, unspecified vomiting type Start: 02-19-2020 End: 02-19-2020 Emergency department patient visit Sesar Damon Work Phone: [facility] ED Comment on above: Nausea and vomiting, intractability of vomiting not specified, unspecified vomiting type (Primary Dx); Flank pain Start: 02-16-2020 End: 02-17-2020 Emergency department patient visit Rickey Davis Work Phone: [facility] ED Comment on above: Right flank pain (Pr imary Dx); Tachycardia Start: 02-16-2020 End: 02-18-2020 Subsequent hospital visit by physician [facility] 1 [facility] Comment on above: Acute pain of right shoulder Start: 02-03-2020 Patient encounter procedure Jone Luigi DIAZZJ-Bmgkqklrjjdmxb-Cqidxo eld Work Phone: Start: 01-19-2020 Patient encounter procedure Jone Harpay ER-Oqrrjimieihmzc-Qyjymm eld Work Phone: Start: 01-13-2020 End: 01-14-2020 Emergency department patient visit [facility] ED Comment on above: Bilious vomiting wit h nausea (Primary Dx); Right lower quadrant abdominal pain Start: 01-08-2020 End: 01-08-2020 Emergency department patient visit Sesar Damon Work Phone: [facility] ED Comment on above: Acute UTI (Primary D x); Right flank pain Start: 10-20-2019 End: 10-20-2019 Emergency department patient visit [facility] ED Comment on above: Left flank pain (April steven Dx) Start: 08-31-2019 End: 08-31-2019 Subsequent hospital visit by physician [facility] Comment on above: Canceled (Other) Start: 08-30-2019 End: 08-30-2019 Subsequent hospital visit by physician [facility] Comment on above: Canceled (Other) Start: 08-22-2019 End: 08-22-2019 Subsequent hospital visit by physician [facility] Comment on above: Arrived Start: 08-18-2019 End: 08-18-2019 Emergency department patient visit [facility] ED Comment on above: Left flank pain (April steven Dx); Acute cystitis without hematuria Start: 08-17-2019 End: 08-17-2019 Subsequent hospital visit by physician [facility] Comment on above: Arrived Start: 08-15-2019 End: 08-15-2019 Subsequent hospital visit by physician Linda Fraga [facility] Comment on above: Arrived Start: 08-10-2019 End: 08-10-2019 Subsequent hospital visit by physician Linda Fraga [facility] Comment on above: Arrived Start: 08-08-2019 End: 08-08-2019 Subsequent hospital visit by physician Linda Fraga [facility] Comment on above: Arrived Start: 07-14-2019 End: 07-14-2019 Emergency department patient visit Rickey Davis MD Work Phone: [facility] ED Comment on above: Right flank pain (Pr imary Dx) Start: 07-11-2019 End: 07-11-2019 Emergency department patient visit Abdulkadir Edouard DO [facility] ED Comment on above: Drug-seeking behavio r (Primary Dx); Right flank pain Start: 07-09-2019 End: 07-09-2019 Emergency department patient visit Gely Marshall MD Work Phone: [facility] ED Comment on above: Flank pain (Primary Dx); Kidney stone; Acute pyelonephritis Start: 04-26-2019 End: 04-26-2019 Emergency department patient visit Raj Manning Work Phone: [facility] ED Comment on above: Flank pain (Primary Dx); Opioid withdrawal (HCC) Start: 04-17-2019 End: 04-22-2019 Evaluation and management of inpatient Abdulkadir Edouard [facility] Comment on above: Urinary tract infect ion associated with catheterization of urinary tract, unspecified indwelling urinary catheter type, subsequent encounter (Primary Dx); Hyperlipidemia, unspecified hyperlipidemia type Start: 04-12-2019 End: 04-12-2019 Emergency department patient visit Skye Karen [facility] ED Start: 04-10-2019 End: 04-10-2019 Emergency department patient visit Sesar Claudio Nelson Work Phone: [facility] ED Comment on above: Acute UTI (Primary D x) Start: 04-05-2019 End: 04-05-2019 Emergency department patient visit Raj Manning Work Phone: [facility] ED Comment on above: Flank pain (Primary Dx) Start: 02-28-2019 End: 02-28-2019 Emergency department patient visit Raj Manning Work Phone: [facility] ED Comment on above: Acute cystitis witho ut hematuria (Primary Dx); Flank pain Start: 02-07-2019 End: 02-09-2019 Subsequent hospital visit by physician Flakito Ct Room 2 [facility] CT Scan Comment on above: Recurrent sinus infe ctions Start: 02-03-2019 End: 02-05-2019 Subsequent hospital visit by physician Flakito Ultrasound 2 [facility] Ultrasound Comment on above: Abnormal liver CT Start: 09-18-2018 End: 09-19-2018 Emergency department patient visit CRISTI YUSUF Facility:[id number] Start: 08-26-2018 End: 08-26-2018 Emergency department patient visit SKYE JONES Facility:[facility] Start: 10-15-2017 End: 10-15-2017 Emergency department patient visit SKYE JONES Facility:[facility] Start: 09-25-2014 End: 09-25-2014 Telephone encounter Karuna Taylor MD Work Phone: Gastroenterology Procedures Date Procedure Procedure Detail Performing Clinician Start: 07-09-2023 Gluc bld gluc mntr d ev cleared fda spec home use Unknown Provider Result Start: 07-09-2023 Gluc bld gluc mntr d ev cleared fda spec home use Unknown Provider Result Start: 07-08-2023 Radex spine cervical 2 or 3 views Yoly Bro MD Work Phone: Start: 07-08-2023 Gluc bld gluc mntr d ev cleared fda spec home use Unknown Provider Result Start: 07-08-2023 Gluc bld gluc mntr d ev cleared fda spec home use Unknown Provider Result Start: 07-08-2023 Gluc bld gluc mntr d ev cleared fda spec home use Unknown Provider Result Start: 07-08-2023 Mri spinal canal cer vical w/o contrast matrl Yoly Bro MD Work Phone: Start: 07-07-2023 CT angiography of thorax CERTIFIED PROSTHETIST VICE PRESIDENTAdrien Jones Work Phone: Start: 01-09-2024 CT of soft tissues o f neck with contrast CERTIFIED PROSTHETIST VICE PRESIDENT Skye Jones Work Phone: Start: 07-01-2023 Gluc bld gluc mntr d ev cleared fda spec home use Unknown Provider Result Start: 07-01-2023 Gluc bld gluc mntr d ev cleared fda spec home use Unknown Provider Result Start: 07-01-2023 Comprehensive metabo lic panel Nicoletto Bolzan-Mariah CERTIFIED PROSTHETIST VICE PRESIDENT - DIRECTOR OF PHOTOGRAPHY Work Phone: Start: 06-30-2023 End: 06-30-2023 Hemoglobin glycosylated a1c Ruben laurent MD Work Phone: Start: 06-30-2023 Fluoroscopy during operation Ruben Abdi MD Work Phone: Start: 06-30-2023 End: 06-30-2023 Anterior instrumentation 4-7 vertebral segments Ruben Abdi MD Work Phone: Start: 06-30-2023 End: 06-30-2023 Gluc bld gluc mntr dev cleared fda spec home use Unknown Provider Result Start: 01-28-2023 Ultrasonography of b ilateral kidneys CERTIFIED PROSTHETIST VICE PRESIDENT Skye Jones Work Phone: Start: 01-28-2023 Urine culture CERTIFIED PROSTHETIST VICE PRESIDENT Aashish le Jnoes Work Phone: Start: 12-06-2022 CT of abdomen and pe lvis without contrast CERTIFIED PROSTHETIST VICE PRESIDENT Skye Jones Work Phone: Start: 12-05-2022 Urine culture CERTIFIED PROSTHETIST VICE PRESIDENT Aashish le Jones Work Phone: Start: 11-27-2022 Diagnostic radiograp hy of abdomen CERTIFIED PROSTHETIST VICE PRESIDENT Skye Jones Work Phone: Start: 11-27-2022 Urine culture CERTIFIED PROSTHETIST VICE PRESIDENT Aashish le Jones Work Phone: Start: 11-22-2022 Ultrasonography of b ilateral kidneys CERTIFIED PROSTHETIST VICE PRESIDENT Skye Jones Work Phone: Start: 11-22-2022 Urine culture CERTIFIED PROSTHETIST VICE PRESIDENT Aashish le Jones Work Phone: Start: 10-28-2022 CT cervical spine wi thout contrast PEE Jones Work Phone: Start: 10-28-2022 CT of abdomen and pe lvis without contrast CERTIFIED PROSTHETIST VICE PRESIDENTAdrien Jones Work Phone: Start: 10-28-2022 CT of head without contrast PEE Jones Work Phone: Start: 10-28-2022 CT of lumbar spine w ithout contrast CERTIFIED PROSTHETIST VICE PRESIDENTAdrien Jones Work Phone: Start: 10-28-2022 Plain X-ray of left femur CERTIFIED PROSTHETIST VICE PRESIDENTAdrien Jones Work Phone: Start: 10-28-2022 Plain X-ray of right shoulder CERTIFIED PROSTHETIST VICE PRESIDENTAdrien Jones Work Phone: Start: 10-28-2022 Radiologic examinati on of knee CERTIFIED PROSTHETIST VICE PRESIDENTAdrien Cheung Karen Work Phone: Start: 09-21-2022 Urine culture CERTIFIED PROSTHETIST VICE PRESIDENTAdrien Acostaach Work Phone: Start: 09-17-2022 Comprehensive metabo lic panel Christiano Harding PA-C Work Phone: Start: 09-17-2022 Drug tst prsmv instr mnt chem analyzers pr date Christiano Harding PA-C Work Phone: Start: 09-17-2022 Urinalysis microscopic only Christiano Harding PA-C Work Phone: Start: 09-17-2022 Urnls dip stick/tabl et rgnt auto w/o microscopy Christiano Harding PA-C Work Phone: Start: 09-06-2022 CT of abdomen and pe lvis without contrast CERTIFIED PROSTHETIST VICE PRESIDENTAdrein Haileach Work Phone: Start: 09-06-2022 Blood culture for ba cteria, including anaerobic screen CERTIFIED PROSTHETIST VICE PRESIDENTAdrien Haileach Work Phone: Start: 09-06-2022 Urine culture CERTIFIED PROSTHETIST VICE PRESIDENTAdrien haile Karen Work Phone: Start: 08-28-2022 CT of abdomen and pe lvis without contrast PEE Jones Work Phone: Start: 08-28-2022 Blood culture for ba cteria, including anaerobic screen PEE Jones Work Phone: Start: 08-28-2022 Urine culture CERTIFIED PROSTHETIST VICE PRESIDENT Aashish lazara Jones Work Phone: Start: 08-24-2022 End: 08-24-2022 Comprehensive metabolic panel Eileen FRANK Work Phone: Start: 08-24-2022 Urinalysis microscopic only Eileen FRANK Work Phone: Start: 08-24-2022 Urnls dip stick/tabl et rgnt auto w/o microscopy Eileen RFANK Work Phone: Start: 08-23-2022 Blood culture for ba cteria, including anaerobic screen CERTIFIED PROSTHETIST VICE PRESIDENTAdrien Jones Work Phone: Start: 08-22-2022 CT of abdomen and pe lvis without contrast CERTIFIED PROSTHETIST VICE PRESIDENTAdrien Jones Work Phone: Start: 08-22-2022 Urine culture CERTIFIED PROSTHETIST VICE PRESIDENT Aashish haile Jones Work Phone: Start: 08-17-2022 Urine culture CERTIFIED PROSTHETIST VICE PRESIDENT Aashish lazara Jones Work Phone: Start: 08-17-2022 CT of abdomen and pe lvis without contrast CERTIFIED PROSTHETIST VICE PRESIDENTAdrien Jones Work Phone: Start: 08-13-2022 Blood count complete auto&auto difrntl wbc Rickey Davis MD Work Phone: Start: 08-13-2022 Urinalysis microscopic only Rickey Davis MD Work Phone: Start: 08-13-2022 Urnls dip stick/tabl et rgnt auto w/o microscopy Rickey Davis MD Work Phone: Start: 08-02-2022 Urine culture CERTIFIED PROSTHETIST VICE PRESIDENT Aashish Murray Work Phone: Start: 08-02-2022 CT of abdomen and pe lvis without contrast CERTIFIED PROSTHETIST VICE PRESIDENTAdrien Jones Work Phone: Start: 07-10-2022 Ct abdomen w/o contr ast material Raj Cleveland PA-C Work Phone: Start: 07-10-2022 Comprehensive metabo lic panel Raj Cleveland PA-C Work Phone: Start: 07-10-2022 Urinalysis microscopic only Rickey Davis MD Work Phone: Start: 07-10-2022 Urnls dip stick/tabl et rgnt auto w/o microscopy Rickey Davis MD Work Phone: Start: 07-03-2022 Urine culture CERTIFIED PROSTHETIST VICE PRESIDENTAdrien Murray Work Phone: Start: 06-08-2022 Diagnostic radiograp hy of abdomen CERTIFIED PROSTHETIST VICE PRESIDENTAdrien Jones Work Phone: Start: 06-08-2022 Urine culture CERTIFIED PROSTHETIST VICE PRESIDENTAdrien Murray Work Phone: Start: 05-27-2022 CT of abdomen and pe lvis without contrast PEE Jones Work Phone: Start: 05-01-2022 CT of abdomen and pe lvis without contrast PEE Jones Work Phone: Start: 04-25-2022 Arthroscopy of shoulder Omi Roland Start: 04-12-2022 CT of abdomen and pe lvis without contrast PEE Jones Work Phone: Start: 03-31-2022 Diagnostic radiograp hy of abdomen CERTIFIED PROSTHETIST VICE PRESIDENTAdrien Jones Work Phone: Start: 03-31-2022 Ultrasonography of b ilateral kidneys PEE Jones Work Phone: Start: 02-26-2022 Diagnostic radiograp hy of abdomen CERTIFIED PROSTHETIST VICE PRESIDENTAdrien Jones Work Phone: Start: 12-06-2021 Plain X-ray of right elbow CERTIFIED PROSTHETIST VICE PRESIDENT Skye Jones Work Phone: Start: 12-06-2021 Plain X-ray of right shoulder CERTIFIED PROSTHETIST VICE PRESIDENT Skye Jones Work Phone: Start: 12-06-2021 Glucose measurement [facility] Work Phone: Start: 12-06-2021 Comprehensive metabo lic panel Roshan Espino MD Work Phone: Start: 12-05-2021 Glucose measurement [facility] Work Phone: Start: 12-05-2021 Glucose measurement [facility] Work Phone: Start: 12-05-2021 Glucose measurement [facility] Work Phone: Start: 12-05-2021 Culture bacterial quanttative colony count urine Jameel Cadena MD Work Phone: Start: 12-05-2021 Glucose measurement [facility] Work Phone: Start: 12-05-2021 Comprehensive metabo lic panel Roshan Espino MD Work Phone: Start: 12-04-2021 Glucose measurement [facility] Work Phone: Start: 12-04-2021 Glucose measurement [facility] Work Phone: Start: 12-04-2021 Glucose measurement [facility] Work Phone: Start: 12-04-2021 Glucose measurement [facility] Work Phone: Start: 12-04-2021 Ecg routine ecg w/le ast 12 lds trcg only w/o i&r Roshan Espino MD Work Phone: Start: 12-04-2021 Electrocardiogram Provi gene Not In System Start: 12-04-2021 Assay of lipase Winnie Espino MD Work Phone: Start: 12-04-2021 Ecg routine ecg w/le ast 12 lds w/i&r Shruthi Christine DIRECTOR OF PHOTOGRAPHY Work Phone: Start: 12-04-2021 Ct angiography chest w/contrast/noncontrast Shruthi Christine DIRECTOR OF PHOTOGRAPHY Work Phone: Start: 12-04-2021 Assay of lactate Shruthi Christine DIRECTOR OF PHOTOGRAPHY Work Phone: Start: 12-04-2021 Drug tst prsmv instr mnt chem analyzers pr date Shruthi Christine DIRECTOR OF PHOTOGRAPHY Work Phone: Start: 12-04-2021 End: 12-04-2021 Urnls dip stick/tablet reagent auto microscopy Shruthi Christine DIRECTOR OF PHOTOGRAPHY Work Phone: Start: 12-04-2021 Ct abdomen & pelvis w/o contrast material Shruthi Christine DIRECTOR OF PHOTOGRAPHY Work Phone: Start: 12-03-2021 Comprehensive metabo lic panel Shruthiwinifred Christine DIRECTOR OF PHOTOGRAPHY Work Phone: Start: 12-03-2021 Hepatic function panel Roshan Espino MD Work Phone: Start: 11-07-2021 Mri spinal canal cer vical w/o contrast matrl Delphine Freeman CERTIFIED PROSTHETIST VICE PRESIDENT - DIRECTOR OF PHOTOGRAPHY Work Phone: Start: 09-30-2021 CT of abdomen and pe lvis without contrast PEE Jones Work Phone: Start: 09-30-2021 Urine culture PEE Murray Work Phone: Start: 06-25-2021 SARS-COV-2 RAPID Genet FRANK Work Phone: Start: 04-15-2021 Comprehensive metabo lic panel Yanely Coyle DO Work Phone: Start: 04-15-2021 Urinalysis microscopic only Sena Dacosta DO Work Phone: Start: 04-15-2021 Urnls dip stick/tabl et rgnt auto w/o microscopy Yanely Coyle DO Work Phone: Start: 02-06-2021 CYSTOSCOPY Tim Roper MD Work Phone: Start: 02-02-2021 Glucose measurement Gen [facility] Work Phone: Start: 02-02-2021 Glucose measurement Gen [facility] Work Phone: Start: 02-01-2021 Glucose measurement Gen [facility] Work Phone: Start: 02-01-2021 Glucose measurement Gen [facility] Work Phone: Start: 02-01-2021 Glucose measurement Gen [facility] Work Phone: Start: 02-01-2021 Glucose measurement Gen [facility] Work Phone: Start: 02-01-2021 Basic metabolic pane l calcium total Rufina Marta Eugene DO Work Phone: Start: 02-01-2021 Glucose measurement Gen [facility] Work Phone: Start: 02-01-2021 SARS-CoV-2 (COVID-19 ) RdRp gene [Presence] in Respiratory specimen by JENNIFER with probe detection Sena White MD Work Phone: Start: 02-01-2021 Ct abdomen & pelvis w/o contrast material Fei Jones PA-C Work Phone: Start: 01-31-2021 Blood count complete auto&auto difrntl wbc Sena White MD Work Phone: Start: 01-31-2021 TIAN TOP Triage [facility] Start: 01-31-2021 LIGHT GREEN TOP Triage Protocol Emergency Start: 01-31-2021 PINK TOP Triage [facility] Start: 01-31-2021 RAINBOW DRAW Triage [facility] Start: 01-31-2021 Culture bacterial quanttative colony count urine Fei Rafat Jones PA-C Work Phone: Start: 01-14-2021 Radiologic exam ches t single view Gely Flood DIRECTOR OF PHOTOGRAPHY Work Phone: Start: 12-04-2020 Urinalysis SHAYNA HERRERALevi ORTIZR Comment on above: Result Comment: URIN ALYSIS Performed By: #### [id number] #### [facility],[address] [place] [address] Start: 11-25-2020 Comprehensive metabo lic panel Raj Manning MD Work Phone: Start: 11-25-2020 Urinalysis microscopic only Raj Manning MD Work Phone: Start: 11-25-2020 Urnls dip stick/tabl et rgnt auto w/o microscopy Raj Manning MD Work Phone: Start: 11-19-2020 Radiologic exam comp lete acute abdomen series Ludin L Pay DO Work Phone: Start: 11-19-2020 Complete blood count with white cell differential, automated Ludin L Pay DO Work Phone: Start: 11-19-2020 Comprehensive metabo lic panel Ludin L Pay DO Work Phone: Start: 11-19-2020 Urinalysis microscopic only Ludin L Pay DO Work Phone: Start: 11-19-2020 Urinalysis, reagent strip without microscopy Ludin L Pay DO Work Phone: Start: 10-18-2020 Radiologic exam ches t 2 views Vesna Patrick PA-C Work Phone: Start: 10-18-2020 Assay of lipase Vesna Patrick PA-C Work Phone: Start: 10-18-2020 TIAN TOP Triage [facility] MD Start: 10-18-2020 End: 10-18-2020 Hepatic function panel Vesna frost PA-C Work Phone: Start: 10-18-2020 LIGHT GREEN TOP Triage Protocol [facility] MD Start: 10-18-2020 RAINBOW DRAW Triage [facility] MD Start: 10-18-2020 SARS-CoV-2 (COVID-19 ) RNA [Presence] in Respiratory specimen by JENNIFER with probe detection Vesna Patrick PA-C Work Phone: Start: 10-18-2020 Ecg routine ecg w/le ast 12 lds w/i&r Vesna Patrick PA-C Work Phone: Start: 10-16-2020 Assay of troponin quantitative Esmer Tamayo PA-C Work Phone: Start: 10-16-2020 Ct abdomen & pelvis w/contrast material Esmer Tamayo PA-C Work Phone: Start: 10-16-2020 Ct head/brain w/o co ntrast material Esmer Tamayo PA-C Work Phone: Start: 10-16-2020 Urnls dip stick/tabl et reagent auto microscopy Esmer Tamayo PA-C Work Phone: Start: 10-16-2020 Comprehensive metabo lic panel Esmer Tamayo PA-C Work Phone: Start: 10-16-2020 Hepatic function panel Esmer Tamayo PA-C Work Phone: Start: 10-16-2020 LIGHT GREEN TOP Lynnette Beth MD Work Phone: Start: 10-16-2020 RAINBOW DRAW Lynnette Beth MD Work Phone: Start: 10-16-2020 Radiologic exam ches t single view Esmer Tamayo PA-C Work Phone: Start: 10-16-2020 Ecg routine ecg w/le ast 12 lds w/i&r Lynnette Beth MD Work Phone: Start: 10-01-2020 End: 10-01-2020 Gluc bld gluc mntr dev cleared fda spec home use Ezekiel Jeffers Work Phone: Start: 10-01-2020 Assay of lipase Anna Jeffers Work Phone: Start: 10-01-2020 Assay of magnesium Alize Jeffers Work Phone: Start: 10-01-2020 Blood count complete auto&auto difrntl wbc Ezekiel Jeffers Work Phone: Start: 10-01-2020 Blood count complete automated Ezekiel Jeffers Work Phone: Start: 10-01-2020 Urinalysis microscopic only Ezekiel Jeffers Work Phone: Start: 10-01-2020 Urnls dip stick/tabl et rgnt auto w/o microscopy Ezekiel Jeffers Work Phone: Start: 09-26-2020 Creatinine other source Raj Cleveland Work Phone: Start: 09-26-2020 POCT VENOUS Raj perez Work Phone: Start: 09-26-2020 Assay of lactate Raj Cleveland Work Phone: Start: 09-26-2020 Assay of lipase Raj morin Work Phone: Start: 09-26-2020 Comprehensive metabo lic panel Raj Cleveland Work Phone: Start: 09-26-2020 Urinalysis microscopic only Raj Cleveland Work Phone: Start: 09-26-2020 Urnls dip stick/tabl et rgnt auto w/o microscopy Raj Cleveland Work Phone: Start: 09-20-2020 Diagnostic radiograp hy of abdomen Jose Muller Work Phone: Start: 09-20-2020 Choriogonadotropin ( test) [Presence] in Urine Jose Fernandez Muller Work Phone: Start: 09-20-2020 Culture bacterial quanttative colony count urine Jose Muller Work Phone: Start: 09-20-2020 Urinalysis microscopic only Jose Fernandez Muller Work Phone: Start: 09-20-2020 Urinalysis, reagent strip without microscopy Jose Muller Work Phone: Start: 09-09-2020 TIAN TOP Lynnette Beth Work Phone: Start: 09-09-2020 LAVENDER TOP Lynnette alexander [employer] Work Phone: Start: 09-09-2020 LIGHT BLUE TOP Lynnette Pyle Work Phone: Start: 09-09-2020 LIGHT GREEN TOP Lynnette fine [employer] Work Phone: Start: 09-09-2020 MINT GREEN TOP Lynnette Pyle Work Phone: Start: 09-09-2020 RAINBOW DRAW Lynnette alexander [employer] Work Phone: Start: 09-09-2020 Urinalysis Lynnette Beth Work Phone: Start: 08-22-2020 Adult depression scr eening assessment Lynnette Kirit Start: 08-22-2020 Microscopic observat ion [Identifier] in Cervix by Cyto stain Lynnettenader Beth Start: 08-14-2020 Ct abdomen & pelvis w/contrast material Esmer Tamayo Work Phone: Start: 08-14-2020 Urinalysis Esmer Tamayo Work Phone: Start: 08-14-2020 Basic metabolic 2000 panel - Serum or Plasma Esmer Tamayo Work Phone: Start: 08-14-2020 Choriogonadotropin.b eta subunit ( test) [Presence] in Serum or Plasma Esmer Tamayo Work Phone: Start: 08-14-2020 Complete blood count with white cell differential, automated Esmer Tamayo Work Phone: Start: 08-14-2020 Complete blood count with white cell differential, manual Esmer Tamayo Work Phone: Start: 08-14-2020 TIAN TOP Lynnette Beth Work Phone: Start: 08-14-2020 Hepatic function 200 0 panel - Serum or Plasma Esmer Tamayo Work Phone: Start: 08-14-2020 LAVENDER TOP Lynnette alexander [employer] Work Phone: Start: 08-14-2020 LIGHT BLUE TOP Lynnette Pyle Work Phone: Start: 08-14-2020 Lipase [Enzymatic activity/volume] in Serum or Plasma Esmer Tamayo Work Phone: Start: 08-14-2020 MINT GREEN TOP Lynnette Pyle Work Phone: Start: 08-14-2020 RAINBOW DRAW Lynnette alexander [employer] Work Phone: Start: 07-16-2020 CT of urinary tract Mol fabian Saini Work Phone: Start: 07-16-2020 Basic metabolic 2000 panel - Serum or Plasma Yulissa Saini Work Phone: Start: 07-16-2020 Choriogonadotropin.b eta subunit ( test) [Presence] in Serum or Plasma Yulissawinifred Saini Work Phone: Start: 07-16-2020 Complete blood count with white cell differential, automated Yulissawinifred Saini Work Phone: Start: 07-16-2020 Complete blood count with white cell differential, manual Yulissa Saini Work Phone: Start: 07-16-2020 Hepatic function 200 0 panel - Serum or Plasma Yulissawinifred Saini Work Phone: Start: 07-16-2020 Lactate [Moles/volum e] in Serum or Plasma Yulissa Saini Work Phone: Start: 07-16-2020 Lipase [Enzymatic activity/volume] in Serum or Plasma Yulissa Saini Work Phone: Start: 07-16-2020 Urinalysis Yulissa Saini Work Phone: Start: 07-08-2020 Radiologic exam ches t single view Esmer Tamayo Work Phone: Start: 07-08-2020 CT of urinary tract Irasema Tamayo Work Phone: Start: 07-08-2020 Basic metabolic 2000 panel - Serum or Plasma Esmer Tamayo Work Phone: Start: 07-08-2020 Complete blood count with white cell differential, automated Esmer Tamayo Work Phone: Start: 07-08-2020 Complete blood count with white cell differential, manual Esmer Tamayo Work Phone: Start: 07-08-2020 Urinalysis Esmer Tamayo Work Phone: Start: 07-01-2020 Blood count complete auto&auto difrntl wbc Raj Cleveland Work Phone: Start: 07-01-2020 Comprehensive metabo lic panel Raj Cleveland Work Phone: Start: 07-01-2020 Urinalysis microscopic only Raj Cleveland Work Phone: Start: 07-01-2020 Urnls dip stick/tabl et rgnt auto w/o microscopy Raj Cleveland Work Phone: Start: 05-28-2020 Gluc bld gluc mntr d ev cleared fda spec home use Unknown Provider Result Start: 05-28-2020 Gluc bld gluc mntr d ev cleared fda spec home use Unknown Provider Result Start: 05-28-2020 Assay of lactate Saul Little [employer] Work Phone: Start: 05-28-2020 Blood count complete auto&auto difrntl wbc Saul Judi Sedar Work Phone: Start: 05-28-2020 C-reactive protein Saul Paynear Work Phone: Start: 05-28-2020 Fibrin dgradj produc ts d-dimer quantitative Saul Pena Work Phone: Start: 05-28-2020 Fibrinogen activity Col e D Becky Work Phone: Start: 05-28-2020 Gluc bld gluc mntr d ev cleared fda spec home use Unknown Provider Result Start: 05-28-2020 Hemoglobin glycosylated a1c Saul Paynear Work Phone: Start: 05-28-2020 Sedimentation rate r bc automated Saul Pena Work Phone: Start: 05-27-2020 Ct angiography chest w/contrast/noncontrast Raj Cleveland Work Phone: Start: 05-27-2020 Creatinine other source Saul Pena Work Phone: Start: 05-27-2020 Assay of lactate Raj Cleveland Work Phone: Start: 05-27-2020 Assay of magnesium Yung Cleveland Work Phone: Start: 05-27-2020 Blood count complete auto&auto difrntl wbc Raj Cleveland Work Phone: Start: 05-27-2020 Comprehensive metabo lic panel Raj Cleveland Work Phone: Start: 05-27-2020 Procalcitonin (pct) Madhu Cleveland Work Phone: Start: 05-27-2020 Urinalysis microscopic only Raj Cleveland Work Phone: Start: 05-27-2020 Urnls dip stick/tabl et rgnt auto w/o microscopy Raj Cleveland Work Phone: Start: 05-25-2020 Blood count complete auto&auto difrntl wbc Yanely Coyle Work Phone: Start: 05-25-2020 Comprehensive metabo lic panel Yanely Coyle Work Phone: Start: 05-25-2020 Fibrin dgradj produc ts d-dimer quantitative Yanely Coyle Work Phone: Start: 05-25-2020 Prothrombin time Yanely Coyle Work Phone: Start: 05-18-2020 Gluc bld gluc mntr d ev cleared fda spec home use Unknown Provider Result Start: 05-18-2020 Gluc bld gluc mntr d ev cleared fda spec home use Unknown Provider Result Start: 05-18-2020 Assay of ferritin Bleda r Kovaci Work Phone: Start: 05-18-2020 Assay of magnesium Bled ar Kovaci Work Phone: Start: 05-18-2020 Blood count complete auto&auto difrntl wbc Kristi Craig Work Phone: Start: 05-18-2020 C-reactive protein h igh sensitivity Bledar Kovaci Work Phone: Start: 05-18-2020 Fibrin dgradj produc ts d-dimer quantitative Bledar Kovaci Work Phone: Start: 05-18-2020 Renal function panel Bl edar Kovaci Work Phone: Start: 05-18-2020 Gluc bld gluc mntr d ev cleared fda spec home use Unknown Provider Result Start: 05-17-2020 Gluc bld gluc mntr d ev cleared fda spec home use Unknown Provider Result Start: 05-17-2020 Gluc bld gluc mntr d ev cleared fda spec home use Unknown Provider Result Start: 05-17-2020 End: 05-17-2020 Gluc bld gluc mntr dev cleared fda spec home use Unknown Provider Result Start: 05-17-2020 Assay of ferritin Bleda r Kovaci Work Phone: Start: 05-17-2020 Assay of magnesium Bled ar Kovaci Work Phone: Start: 05-17-2020 Blood count complete auto&auto difrntl wbc Kristi Craig Work Phone: Start: 05-17-2020 C-reactive protein h igh sensitivity Bledar Kovaci Work Phone: Start: 05-17-2020 Fibrin dgradj produc ts d-dimer quantitative Bledar Kovaci Work Phone: Start: 05-17-2020 Renal function panel Bl edar Kovaci Work Phone: Start: 05-16-2020 Gluc bld gluc mntr d ev cleared fda spec home use Unknown Provider Result Start: 05-16-2020 Gluc bld gluc mntr d ev cleared fda spec home use Unknown Provider Result Start: 05-16-2020 Gluc bld gluc mntr d ev cleared fda spec home use Unknown Provider Result Start: 05-16-2020 Assay of ferritin Bleda r Kovaci Work Phone: Start: 05-16-2020 Assay of magnesium Bled ar Kovaci Work Phone: Start: 05-16-2020 Blood count complete auto&auto difrntl wbc Kristi Craig Work Phone: Start: 05-16-2020 C-reactive protein h igh sensitivity Bledar Kovaci Work Phone: Start: 05-16-2020 Fibrin dgradj produc ts d-dimer quantitative Bledar Kovaci Work Phone: Start: 05-16-2020 Renal function panel Bl edar Belli Work Phone: Start: 05-16-2020 Gluc bld gluc mntr d ev cleared fda spec home use Unknown Provider Result Start: 05-15-2020 Gluc bld gluc mntr d ev cleared fda spec home use Unknown Provider Result Start: 05-15-2020 Gluc bld gluc mntr d ev cleared fda spec home use Unknown Provider Result Start: 05-15-2020 Gluc bld gluc mntr d ev cleared fda spec home use Unknown Provider Result Start: 05-15-2020 Gluc bld gluc mntr d ev cleared fda spec home use Unknown Provider Result Start: 05-15-2020 Assay of ferritin Bleda r Kovaci Work Phone: Start: 05-15-2020 Assay of magnesium Bled ar Kovaci Work Phone: Start: 05-15-2020 Blood count complete auto&auto difrntl wbc Kristi Craig Work Phone: Start: 05-15-2020 C-reactive protein h igh sensitivity Bledar Kovaci Work Phone: Start: 05-15-2020 Fibrin dgradj produc ts d-dimer quantitative Bledar Kovaci Work Phone: Start: 05-15-2020 Renal function panel Bl edar Belli Work Phone: Start: 05-14-2020 Gluc bld gluc mntr d ev cleared fda spec home use Unknown Provider Result Start: 05-14-2020 Gluc bld gluc mntr d ev cleared fda spec home use Unknown Provider Result Start: 05-14-2020 Gluc bld gluc mntr d ev cleared fda spec home use Unknown Provider Result Start: 05-14-2020 Fibrin dgradj produc ts d-dimer quantitative Bledar Kovaci Work Phone: Start: 05-14-2020 Assay of ferritin Bleda r Kovaci Work Phone: Start: 05-14-2020 Assay of magnesium Bled ar Kovaci Work Phone: Start: 05-14-2020 Blood count complete auto&auto difrntl wbc Kristi Craig Work Phone: Start: 05-14-2020 C-reactive protein h igh sensitivity Bledar Kovaci Work Phone: Start: 05-14-2020 Renal function panel Bl edar Wilfredojayi Work Phone: Start: 05-14-2020 Gluc bld gluc mntr d ev cleared fda spec home use Unknown Provider Result Start: 05-13-2020 Gluc bld gluc mntr d ev cleared fda spec home use Unknown Provider Result Start: 05-13-2020 Gluc bld gluc mntr d ev cleared fda spec home use Unknown Provider Result Start: 05-13-2020 Gluc bld gluc mntr d ev cleared fda spec home use Unknown Provider Result Start: 05-13-2020 Gluc bld gluc mntr d ev cleared fda spec home use Unknown Provider Result Start: 05-13-2020 Assay of ferritin Bleda r Kovaci Work Phone: Start: 05-13-2020 Assay of magnesium Bled ar Kovaci Work Phone: Start: 05-13-2020 Blood count complete auto&auto difrntl wbc Kristi Craig Work Phone: Start: 05-13-2020 C-reactive protein h igh sensitivity Bledar Kovaci Work Phone: Start: 05-13-2020 Fibrin dgradj produc ts d-dimer quantitative Bledar Kovaci Work Phone: Start: 05-13-2020 Renal function panel Bl edar Eva Work Phone: Start: 05-12-2020 Gluc bld gluc mntr d ev cleared fda spec home use Unknown Provider Result Start: 05-12-2020 Gluc bld gluc mntr d ev cleared fda spec home use Unknown Provider Result Start: 05-12-2020 Radiologic exam ches t single view Bledar Wilfredovaci Work Phone: Start: 05-12-2020 Gluc bld gluc mntr d ev cleared fda spec home use Unknown Provider Result Start: 05-12-2020 Gluc bld gluc mntr d ev cleared fda spec home use Unknown Provider Result Start: 05-12-2020 Assay of ferritin Bleda r Eva Work Phone: Start: 05-12-2020 Assay of magnesium Bled ar Belli Work Phone: Start: 05-12-2020 Blood count complete auto&auto difrntl wbc Kristi Craig Work Phone: Start: 05-12-2020 C-reactive protein h igh sensitivity Bledar Wilfredovaci Work Phone: Start: 05-12-2020 Fibrin dgradj produc ts d-dimer quantitative Bledar Kovaci Work Phone: Start: 05-11-2020 Gluc bld gluc mntr d ev cleared fda spec home use Unknown Provider Result Start: 05-11-2020 Gluc bld gluc mntr d ev cleared fda spec home use Unknown Provider Result Start: 05-11-2020 Gluc bld gluc mntr d ev cleared fda spec home use Unknown Provider Result Start: 05-11-2020 Gluc bld gluc mntr d ev cleared fda spec home use Unknown Provider Result Start: 05-11-2020 Assay of ferritin Bleda r Kovaci Work Phone: Start: 05-11-2020 Assay of magnesium Bled ar Kovaci Work Phone: Start: 05-11-2020 C-reactive protein h igh sensitivity Bledar Kovaci Work Phone: Start: 05-11-2020 Comprehensive metabo lic panel Marcella A Abbud Work Phone: Start: 05-11-2020 Natriuretic peptide Ble vlad Kovaci Work Phone: Start: 05-11-2020 Blood count complete auto&auto difrntl wbc Kristi Craig Work Phone: Start: 05-11-2020 Fibrin dgradj produc ts d-dimer quantitative Bledar Kovaci Work Phone: Start: 05-10-2020 Gluc bld gluc mntr d ev cleared fda spec home use Unknown Provider Result Start: 05-10-2020 Gluc bld gluc mntr d ev cleared fda spec home use Unknown Provider Result Start: 05-10-2020 Gluc bld gluc mntr d ev cleared fda spec home use Unknown Provider Result Start: 05-10-2020 Gluc bld gluc mntr d ev cleared fda spec home use Unknown Provider Result Start: 05-10-2020 Blood count complete auto&auto difrntl wbc Kristi Craig Work Phone: Start: 05-10-2020 C-reactive protein h igh sensitivity Bledar Kovaci Work Phone: Start: 05-10-2020 Fibrin dgradj produc ts d-dimer quantitative Bledar Kovaci Work Phone: Start: 05-10-2020 Assay of ferritin Bleda r Kovaci Work Phone: Start: 05-10-2020 Assay of magnesium Bled ar Kovaci Work Phone: Start: 05-10-2020 Comprehensive metabo lic panel Marcella A Abbud Work Phone: Start: 05-09-2020 Gluc bld gluc mntr d ev cleared fda spec home use Unknown Provider Result Start: 05-09-2020 Gluc bld gluc mntr d ev cleared fda spec home use Unknown Provider Result Start: 05-09-2020 Gluc bld gluc mntr d ev cleared fda spec home use Unknown Provider Result Start: 05-09-2020 Gluc bld gluc mntr d ev cleared fda spec home use Unknown Provider Result Start: 05-09-2020 Assay of ferritin Bleda r Kovaci Work Phone: Start: 05-09-2020 Assay of magnesium Bled ar Kovaci Work Phone: Start: 05-09-2020 Blood count complete auto&auto difrntl wbc Kristi Craig Work Phone: Start: 05-09-2020 C-reactive protein h igh sensitivity Bledar Kovaci Work Phone: Start: 05-09-2020 Comprehensive metabo lic panel Marcella A Abbud Work Phone: Start: 05-09-2020 Fibrin dgradj produc ts d-dimer quantitative Bledar Kovaci Work Phone: Start: 05-08-2020 Gluc bld gluc mntr d ev cleared fda spec home use Unknown Provider Result Start: 05-08-2020 Gluc bld gluc mntr d ev cleared fda spec home use Unknown Provider Result Start: 05-08-2020 Gluc bld gluc mntr d ev cleared fda spec home use Unknown Provider Result Start: 05-08-2020 Gluc bld gluc mntr d ev cleared fda spec home use Unknown Provider Result Start: 05-08-2020 Assay of ferritin Bleda r Kovaci Work Phone: Start: 05-08-2020 Assay of magnesium Bled ar Kovaci Work Phone: Start: 05-08-2020 Blood count complete auto&auto difrntl wbc Kristi Craig Work Phone: Start: 05-08-2020 C-reactive protein h igh sensitivity Bledar Kovaci Work Phone: Start: 05-08-2020 Comprehensive metabo lic panel Marcella A Abbud Work Phone: Start: 05-08-2020 Fibrin dgradj produc ts d-dimer quantitative Bledar Kovaci Work Phone: Start: 05-08-2020 Hemoglobin glycosylated a1c Bledar Kovaci Work Phone: Start: 05-08-2020 Radiologic exam ches t single view Marcella A Abbud Work Phone: Start: 05-08-2020 RADIOLOGY REPORT Hpf Sc anning Start: 05-08-2020 TRANSFUSE CONVALESCE NT PLASMA Marcella A Abbud Work Phone: Start: 05-07-2020 Gluc bld gluc mntr d ev cleared fda spec home use Unknown Provider Result Start: 05-07-2020 Antibody screen Kristi S imon Start: 05-07-2020 Gluc bld gluc mntr d ev cleared fda spec home use Unknown Provider Result Start: 05-07-2020 POCT ARTERIAL Unknown P rovider Result Start: 05-07-2020 Blood typing serologic abo Marcella A Abbud Work Phone: Start: 05-07-2020 PREPARE COVID-19 CONVALESCENT PLASMA Marcella A Abbud Work Phone: Start: 05-07-2020 Renal function panel Bl edar Belli Work Phone: Start: 05-07-2020 Radiologic exam ches t single view Bledar Kovaci Work Phone: Start: 05-07-2020 Assay of magnesium Rono bir Nadia Work Phone: Start: 05-07-2020 Assay of phosphorus inorganic Ronobir Nadia Work Phone: Start: 05-07-2020 Basic metabolic pane l calcium total Ronobir Nadia Work Phone: Start: 05-07-2020 Gluc bld gluc mntr d ev cleared fda spec home use Unknown Provider Result Start: 05-07-2020 Gluc bld gluc mntr d ev cleared fda spec home use Unknown Provider Result Start: 05-07-2020 Assay of magnesium Rono bir Nadia Work Phone: Start: 05-07-2020 Assay of phosphorus inorganic Ronobir Nadia Work Phone: Start: 05-07-2020 Basic metabolic pane l calcium total Ronobir Nadia Work Phone: Start: 05-07-2020 Gluc bld gluc mntr d ev cleared fda spec home use Unknown Provider Result Start: 05-07-2020 End: 05-07-2020 Gluc bld gluc mntr dev cleared fda spec home use Unknown Provider Result Start: 05-07-2020 Assay of magnesium Zoltano edouard Zuniga Work Phone: Start: 05-07-2020 Assay of phosphorus inorganic Ronobir Nadia Work Phone: Start: 05-07-2020 Blood count complete auto&auto difrntl wbc Kristi Craig Work Phone: Start: 05-07-2020 End: 05-07-2020 Gluc bld gluc mntr dev cleared fda spec home use Unknown Provider Result Start: 05-07-2020 Gluc bld gluc mntr d ev cleared fda spec home use Unknown Provider Result Start: 05-07-2020 Gluc bld gluc mntr d ev cleared fda spec home use Unknown Provider Result Start: 05-07-2020 Assay of magnesium Zoltano edouard Zuniga Work Phone: Start: 05-07-2020 Assay of phosphorus inorganic Ronobir Nadia Work Phone: Start: 05-07-2020 Basic metabolic pane l calcium total Ronobir Nadia Work Phone: Start: 05-06-2020 End: 05-06-2020 Gluc bld gluc mntr dev cleared fda spec home use Unknown Provider Result Start: 05-06-2020 Gluc bld gluc mntr d ev cleared fda spec home use Unknown Provider Result Start: 05-06-2020 Basic metabolic pane l calcium total Vikash R Radha Work Phone: Start: 05-06-2020 Gluc bld gluc mntr d ev cleared fda spec home use Unknown Provider Result Start: 05-06-2020 Gluc bld gluc mntr d ev cleared fda spec home use Unknown Provider Result Start: 05-06-2020 Blood count complete auto&auto difrntl wbc Kristi Craig Work Phone: Start: 05-06-2020 Hemoglobin glycosylated a1c Kristi Craig Work Phone: Start: 05-05-2020 Dup-scan xtr veins c omplete bilateral study Kristi Craig Work Phone: Start: 05-05-2020 Ct angiography chest w/contrast/noncontrast Deja Fernando Hightower Work Phone: Start: 05-05-2020 Sedimentation rate r bc automated Deja Fernando Hightower Work Phone: Start: 05-05-2020 POCT ARTERIAL Deja Fernando Mu rphy Work Phone: Start: 05-05-2020 POCT VENOUS Deja Fernando Mur phy Work Phone: Start: 05-05-2020 Ecg routine ecg w/le ast 12 lds i&r only Deja Fernando Campbell Work Phone: Start: 05-05-2020 Radiologic exam ches t single view Deja Fernando Hightower Work Phone: Start: 05-05-2020 Assay of ferritin Deja Fernando Campbell Work Phone: Start: 05-05-2020 Assay of troponin quantitative Deja Hightower Work Phone: Start: 05-05-2020 Blood count complete auto&auto difrntl wbc Deja Hightower Work Phone: Start: 05-05-2020 C-reactive protein h igh sensitivity Deja Hightower Work Phone: Start: 05-05-2020 Comprehensive metabo lic panel Deja Fernando Hightower Work Phone: Start: 05-05-2020 Fibrin dgradj produc ts d-dimer quantitative Deja Fernando Hightower Work Phone: Start: 05-05-2020 Procalcitonin (pct) Nara levi Abdullahi Hightower Work Phone: Start: 05-01-2020 End: 05-01-2020 Gluc bld gluc mntr dev cleared fda spec home use Yanely Coyle Work Phone: Start: 05-01-2020 Assay of lactate Yanely Coyle Work Phone: Start: 05-01-2020 Assay of magnesium Darin Coyle Work Phone: Start: 05-01-2020 Blood count complete auto&auto difrntl wbc Yanely Coyle Work Phone: Start: 05-01-2020 Comprehensive metabo lic panel Yanely Coyle Work Phone: Start: 05-01-2020 Radiologic exam ches t single view Yanely Coyle Work Phone: Start: 04-30-2020 Radiologic exam ches t single view Deja Hightower Work Phone: Start: 04-30-2020 COVID-19 Deja contreras Work Phone: Start: 04-30-2020 Iaad ia streptococcu s group a Deja Hightower Work Phone: Start: 04-30-2020 Iaadiadoo influenza Nara Hightower Work Phone: Start: 04-30-2020 Blood count complete auto&auto difrntl wbc Deja Abdullahi Hightower Work Phone: Start: 04-30-2020 Comprehensive metabo lic panel Deja Hightower Work Phone: Start: 04-30-2020 Urinalysis microscopic only Deja Abdullahi Hightower Work Phone: Start: 04-30-2020 Urnls dip stick/tabl et rgnt auto w/o microscopy Deja Hightower Work Phone: Start: 04-29-2020 SPECIMEN REJECTION Yung Manning Work Phone: Start: 04-29-2020 Urine test visual color cmprsn meths Raj Manning Work Phone: Start: 04-29-2020 Assay of magnesium Yung Manning Work Phone: Start: 04-29-2020 Comprehensive metabo lic panel Raj Manning Work Phone: Start: 04-29-2020 Urinalysis microscopic only Raj Manning Work Phone: Start: 04-29-2020 Urnls dip stick/tabl et rgnt auto w/o microscopy Raj Manning Work Phone: Start: 03-15-2020 Follow-up visit Start: 03-05-2020 End: 03-05-2020 Gluc bld gluc mntr dev cleared fda spec home use Raj Cleveland Work Phone: Start: 03-04-2020 Assay of lactate Raj Chahe Work Phone: Start: 03-04-2020 Assay of lipase Raj Acuna patience Work Phone: Start: 03-04-2020 Blood count complete auto&auto difrntl wbc Raj Cleveland Work Phone: Start: 03-04-2020 Comprehensive metabo lic panel Raj Cleveland Work Phone: Start: 03-04-2020 Urinalysis microscopic only Raj Cleveland Work Phone: Start: 03-04-2020 Urnls dip stick/tabl et rgnt auto w/o microscopy Raj Cleveland Work Phone: Start: 02-19-2020 Blood count complete auto&auto difrntl wbc Sesar Damon Work Phone: Start: 02-19-2020 Comprehensive metabo lic panel Sesar Chudifernanda Work Phone: Start: 02-16-2020 Blood count complete auto&auto difrntl wbc Rickey Davis Work Phone: Start: 02-16-2020 Comprehensive metabo lic panel Rickey Davis Work Phone: Start: 02-16-2020 Urinalysis microscopic only Rickey Davis Work Phone: Start: 02-16-2020 Urnls dip stick/tabl et rgnt auto w/o microscopy Rickey Davis Work Phone: Start: 02-16-2020 Radex shoulder compl ete minimum 2 views Guillaume Sosa Work Phone: Start: 02-03-2020 Follow-up visit Start: 01-19-2020 Follow-up visit Start: 01-13-2020 Creatinine other source Jeff Espinal Work Phone: Start: 01-13-2020 Assay of lipase Jeff Espinal Work Phone: Start: 01-13-2020 Blood count complete auto&auto difrntl wbc Jeff Espinal Work Phone: Start: 01-13-2020 Comprehensive metabo lic panel Jeff Espinal Work Phone: Start: 01-13-2020 LACTATE, SEPSIS Jeff Espinal Work Phone: Start: 01-13-2020 Ecg routine ecg w/le ast 12 lds w/i&r Rickey Davis Work Phone: Start: 01-13-2020 Urinalysis microscopic only Rickey Davis Work Phone: Start: 01-13-2020 Urnls dip stick/tabl et rgnt auto w/o microscopy Rickey Karl Ryan Work Phone: Start: 01-08-2020 Assay of amylase Noha S Dardir Work Phone: Start: 01-08-2020 Assay of lipase Noha S Dardir Work Phone: Start: 01-08-2020 Blood count complete auto&auto difrntl wbc Noha S Dardir Work Phone: Start: 01-08-2020 End: 01-08-2020 Urnls dip stick/tablet rgnt auto w/o microscopy Noha S Dardir Work Phone: Start: 01-08-2020 End: 01-08-2020 Urinalysis microscopic only Noha S Dardi r Work Phone: Start: 10-20-2019 Basic metabolic pane l calcium total Sigrid Okicki Work Phone: Start: 10-20-2019 Blood count complete auto&auto difrntl wbc Sigrid Okicki Work Phone: Start: 10-20-2019 Urinalysis microscopic only Sigrid Nieto Work Phone: Start: 10-20-2019 Urnls dip stick/tabl et rgnt auto w/o microscopy Sigrid Nieto Work Phone: Start: 08-18-2019 Urinalysis microscopic only Rickey Davis Work Phone: Start: 08-18-2019 Urnls dip stick/tabl et rgnt auto w/o microscopy Rickey Davis Work Phone: Start: 07-14-2019 Comprehensive metabo lic panel Rickey Davis MD Work Phone: Start: 07-14-2019 Urinalysis microscopic only Rickey Davis MD Work Phone: Start: 07-14-2019 Urnls dip stick/tabl et rgnt auto w/o microscopy Rickey Davis MD Work Phone: Start: 07-09-2019 Ct abdomen & pelvis w/o contrast material Gely Marshall MD Work Phone: Start: 07-09-2019 Comprehensive metabo lic panel Gely Marshall MD Work Phone: Start: 07-09-2019 Urnls dip stick/tabl et rgnt auto w/o microscopy Gely Marshall MD Work Phone: Start: 04-26-2019 Assay of amylase Raj Lawton Kerri Work Phone: Start: 04-26-2019 Assay of lactate Raj Lawton Kerri Work Phone: Start: 04-26-2019 Assay of lipase Raj Lawton Kerri Work Phone: Start: 04-26-2019 Blood count complete auto&auto difrntl wbc Raj Lawton Kerri Work Phone: Start: 04-26-2019 Urinalysis microscopic only Raj Lawton Kerri Work Phone: Start: 04-26-2019 Urnls dip stick/tabl et rgnt auto w/o microscopy Raj Jered Kerri Work Phone: Start: 04-22-2019 Gluc bld gluc mntr d ev cleared fda spec home use Unknown Provider Result Start: 04-21-2019 Gluc bld gluc mntr d ev cleared fda spec home use Unknown Provider Result Start: 04-21-2019 Gluc bld gluc mntr d ev cleared fda spec home use Unknown Provider Result Start: 04-21-2019 Ct abdomen & pelvis w/o contrst 1/> body re Andrew Washington Work Phone: Start: 04-21-2019 Gluc bld gluc mntr d ev cleared fda spec home use Unknown Provider Result Start: 04-21-2019 Blood count complete auto&auto difrntl wbc Andrew Washington Work Phone: Start: 04-21-2019 SPECIMEN REJECTION Andrew JavierHSystem Work Phone: Start: 04-21-2019 Comprehensive metabo lic panel Andrew JavierHSystem Work Phone: Start: 04-21-2019 Gluc bld gluc mntr d ev cleared fda spec home use Unknown Provider Result Start: 04-20-2019 Gluc bld gluc mntr d ev cleared fda spec home use Unknown Provider Result Start: 04-20-2019 Gluc bld gluc mntr d ev cleared fda spec home use Unknown Provider Result Start: 04-20-2019 Gluc bld gluc mntr d ev cleared fda spec home use Unknown Provider Result Start: 04-20-2019 Gluc bld gluc mntr d ev cleared fda spec home use Unknown Provider Result Start: 04-20-2019 Urinalysis microscopic only Cristi Mcdaniels Work Phone: Start: 04-20-2019 Urnls dip stick/tabl et rgnt auto w/o microscopy Cristi Mcdaniels Work Phone: Start: 04-19-2019 Culture bacterial quanttative colony count urine Cristi Mcdaniels Work Phone: Start: 04-19-2019 Gluc bld gluc mntr d ev cleared fda spec home use Unknown Provider Result Start: 04-19-2019 Gluc bld gluc mntr d ev cleared fda spec home use Unknown Provider Result Start: 04-19-2019 Gluc bld gluc mntr d ev cleared fda spec home use Unknown Provider Result Start: 04-19-2019 Gluc bld gluc mntr d ev cleared fda spec home use Unknown Provider Result Start: 04-18-2019 Gluc bld gluc mntr d ev cleared fda spec home use Unknown Provider Result Start: 04-18-2019 Gluc bld gluc mntr d ev cleared fda spec home use Unknown Provider Result Start: 04-18-2019 Gluc bld gluc mntr d ev cleared fda spec home use Unknown Provider Result Start: 04-18-2019 SPECIMEN REJECTION Same fernanda Camposkr Work Phone: Start: 04-18-2019 Assay of lactate Samer M Abubakr Work Phone: Start: 04-18-2019 Assay of magnesium Same r Jered Abubakr Work Phone: Start: 04-18-2019 Blood count complete auto&auto difrntl wbc Milan Morataya Work Phone: Start: 04-18-2019 Gluc bld gluc mntr d ev cleared fda spec home use Unknown Provider Result Start: 04-17-2019 Ct abdomen & pelvis w/o contrast material Abdulkadir Edouard Start: 04-17-2019 Assay of lactate Abdulkadir Edouard Start: 04-17-2019 Assay of lipase Abdulkadir Fernandez lulimariah Start: 04-17-2019 Basic metabolic pane l calcium total Abdulkadir Edouard Start: 04-17-2019 Blood count complete auto&auto difrntl wbc Abdulkadir Edouard Start: 04-17-2019 Culture bacterial quanttative colony count urine Abdulkadir Edouard Start: 04-17-2019 Hemoglobin glycosylated a1c Abdulkadir Edouard Start: 04-17-2019 Hepatic function panel Abdulkadir Edouard Start: 04-17-2019 Urinalysis microscopic only Abdulkadir Edouard Start: 04-17-2019 Urnls dip stick/tabl et rgnt auto w/o microscopy Abdulkadir Edouard Start: 04-10-2019 Blood count complete auto&auto difrntl wbc Sesar Shepherdr Work Phone: Start: 04-10-2019 Comprehensive metabo lic panel Sesar DATYr Work Phone: Start: 04-10-2019 Urinalysis microscopic only Raj Cleveland Work Phone: Start: 04-10-2019 Urnls dip stick/tabl et rgnt auto w/o microscopy Raj Cleveland Work Phone: Start: 04-05-2019 Blood count complete auto&auto difrntl wbc Raj Manning Work Phone: Start: 04-05-2019 Comprehensive metabo lic panel Raj Manning Work Phone: Start: 04-05-2019 Urinalysis microscopic only Raj Manning Work Phone: Start: 04-05-2019 Urnls dip stick/tabl et rgnt auto w/o microscopy Raj Manning Work Phone: Start: 02-28-2019 Us retroperitoneal r eal time w/image limited Raj Manning Work Phone: Start: 02-28-2019 Blood count complete auto&auto difrntl wbc Raj Manning Work Phone: Start: 02-28-2019 Comprehensive metabo lic panel Raj Manning Work Phone: Start: 02-28-2019 Urinalysis microscopic only Raj Manning Work Phone: Start: 02-28-2019 Urnls dip stick/tabl et rgnt auto w/o microscopy Raj Manning Work Phone: Start: 02-07-2019 Ct maxillofacial w/o contrast material Skye Jones Work Phone: Start: 02-03-2019 Us abdominal real ti me w/image limited Skye Jones Work Phone: Start: 07-21-2011 Colonoscopy Gem davis [facility],PharmD Hernia of abdominal cavity (disorder) Astrit Hajdari History of cholecystectomy A strit Hajdari History of decompres sully of median nerve Astrit Hajdari History of total hysterectomy Astrit Hajdari Tonsil and/or adenoi d hypertrophy (disorder) Astrit Hajdari Urine culture CERTIFIED PROSTHETIST VICE PRESIDENTAdrien Carvalho Work Phone: Urine culture CERTIFIED PROSTHETIST VICE PRESIDENT Skye Haile corin Work Phone: Plan of Treatment Date Care Activity Detail Author Start: 12-01-2032 DTaP/Tdap/Td vaccine (2 - Td or Tdap) DTaP/Tdap/Td vaccine (2 - Td or Tdap) [facility] Start: 08-22-2025 Screening for malignant neoplasm of cervix Pap Smear [place] Start: 2025 Shingles Vaccine (1 of 2) Shingles Vaccine (1 of 2) [facility] Work Phone: Start: 07-01-2024 GFR test (Diabetes, CKD 3-4, OR last GFR 15-59) GFR test (Diabetes, CKD 3-4, OR last GFR 15-59) [facility] Start: 09-29-2023 Hemoglobin A1c measurement A1C test (Diabetic or Prediabetic) [facility] Start: 09-18-2023 GFR test (Diabetes, CKD 3-4, OR last GFR 15-59) GFR test (Diabetes, CKD 3-4, OR last GFR 15-59) [facility] Start: 09-07-2023 End: 09-07-2023 Patient encounter procedure [facility] Comment on above: Follow Up Start: 08-24-2023 GFR test (Diabetes, CKD 3-4, OR last GFR 15-59) GFR test (Diabetes, CKD 3-4, OR last GFR 15-59) [facility] Start: 08-11-2023 GFR test (Diabetes, CKD 3-4, OR last GFR 15-59) GFR test (Diabetes, CKD 3-4, OR last GFR 15-59) [facility] Start: 07-29-2023 End: 07-29-2023 Patient encounter procedure 07/29/2023 1:00 PM EST Office Visit [facility] Neuro[facility] [address] [place] [id number] Ruben Abdi MD [address] [place] [id number] POST OP: [facility] 06/30/23 - C 5-6, C 6-7 ACDF [facility] Comment on above: POST OP: [facility] 06/30/23 - C 5-6, C 6-7 A CDF Start: 07-28-2023 Depression Monitoring Depression Monitoring [facility] Start: 07-28-2023 Depression Screen Depression Screen [facility] Start: 07-28-2023 Hemoglobin A1c measurement A1C test (Diabetic or Prediabetic) [facility] Start: 07-21-2023 End: 06-30-2024 XR Cervical spine 2 or 3 Views XR CERVICAL SPINE (2-3 VIEWS) Imaging Routine Cervical stenosis of spine Expected: 07/21/2023, Expires: 06/30/2024 [facility] Comment on above: Expected: 07/21/2023, Expires: Start: 07-16-2023 End: 07-16-2023 Patient encounter procedure 07/16/2023 11:30 AM EST Office Visit [facility] Management [address] [place] [address] Sarah Yarbrough CERTIFIED PROSTHETIST VICE PRESIDENT - DIRECTOR OF PHOTOGRAPHY [address] [place] [address] POST OP: JUSTIN @ [facility] 06/30/23 - C 5-6, C 6-7 ACDF [facility] Comment on above: POST OP: JUSTIN @ [facility] - C 5-6, C 6-7 ACDF Start: 07-15-2023 End: 07-15-2023 Patient encounter procedure 07/15/2023 10:30 AM EST Office Visit [facility] [address] [place] [address] Skye Jones CERTIFIED PROSTHETIST VICE PRESIDENT - DIRECTOR OF PHOTOGRAPHY [address] [place] [address] [facility] Start: 07-10-2023 GFR test (Diabetes, CKD 3-4, OR last GFR 15-59) GFR test (Diabetes, CKD 3-4, OR last GFR 15-59) [facility] Start: 05-14-2023 [facility]abetic retinal [facility] Start: 05-14-2023 Glaucoma screening Diabetic retinal exam [facility] Start: 04-03-2023 [facility] Start: 03-29-2023 Referral to [facility] Start: 03-29-[address] [facility] Start: 03-04-2023 Hemoglobin A1c measurement A1C test (Diabetic or Prediabetic) [facility] Start: 02-01-2023 [facility] Start: 01-29-2023 [facility] admission [facility] Start: 01-28-2023 Ultrasonography of bilateral kidneys [facility] Start: 01-28-2023 US Kidney - bilateral [facility] Start: 01-28-2023 [facility] Start: 01-27-2023 Influenza vaccination Flu vaccine (#1) [facility] Start: 01-22-2023 [facility] Start: 01-18-2023 Referral to clinical household assistant [facility] Start: 01-18-2023 Referral to [facility] Start: 01-18-2023 [facility] Start: 01-03-2023 [facility] Start: 12-31-2022 [facility] Start: 12-17-2022 [facility] Start: 12-14-2022 Referral to [facility] Start: 12-14-2022 [facility] Start: 12-10-2022 [facility] Start: 12-06-2022 Referral to clinical household assistant [facility] Start: 12-06-2022 End: 12-06-2022 Referral to [facility] Start: 12-06-2022 [facility] Start: 11-27-2022 Diagnostic radiography of abdomen [facility] Start: 11-27-2022 Bacteria identified in Urine by Culture [facility] Start: 11-27-2022 End: 11-27-2022 Patient encounter procedure 11/27/2022 Office Visit Skye Lenz APRN - DIRECTOR OF PHOTOGRAPHY [address] [place] [address] [facility] Start: 11-22-2022 Ultrasonography of bilateral kidneys US renal BI [facility] Start: 11-22-2022 US Kidney - bilateral [facility] Start: 11-22-2022 Bacteria identified in Urine by Culture [facility] Start: 11-19-2022 Urine screening for protein Diabetic Alb to Cr ratio (uACR) test [facility] Start: 10-28-2022 CT cervical spine without contrast CT cervical spine wo con [facility] Start: 10-28-2022 CT Cervical spine WO contrast [facility] Start: 09-18-2022 End: 09-18-2022 Patient encounter procedure 09/18/2022 [facility]ointment [facility] Start: 09-17-2022 End: 09-17-2022 Patient encounter procedure 09/17/2022 [facility]ointment [facility] Start: 09-16-2022 End: 09-16-2022 Patient encounter procedure 09/16/2022 Appointment [facility] Start: 09-06-2022 End: 09-06-2022 [facility] Start: 09-06-2022 CT Abdomen and Pelvis WO contrast [facility] Start: 09-06-2022 CT of abdomen and pelvis without contrast [facility] Start: 08-28-2022 CT Abdomen and Pelvis WO contrast [facility] Start: 08-28-2022 CT of abdomen and pelvis without contrast [facility] Start: 08-28-2022 [facility] Start: 08-27-2022 End: 08-27-2022 Patient encounter procedure 08/27/2022 Office Visit Skye Lenz APRN - DIRECTOR OF PHOTOGRAPHY [address] [place] [address] [facility] Start: 08-23-2022 Bacteria identified in Blood by Culture Blood Culture [facility] Start: 08-22-2022 CT Abdomen and Pelvis WO contrast [facility] Start: 08-22-2022 CT of abdomen and pelvis without contrast CT abdomen pelvis wo [facility] Start: 08-22-2022 Bacteria identified in Urine by Culture [facility] Start: 08-17-2022 Bacteria identified in Urine by Culture Urine Culture [facility] Start: 08-17-2022 CT Abdomen and Pelvis WO contrast [facility] Start: 08-17-2022 CT of abdomen and pelvis without contrast CT abdomen pelvis wo [facility] Start: 08-02-2022 Bacteria identified in Urine by Culture Urine Culture [facility] Start: 08-02-2022 CT Abdomen and Pelvis WO contrast [facility] Start: 08-02-2022 CT of abdomen and pelvis without contrast CT abdomen pelvis wo [facility] Start: 07-28-2022 End: 07-28-2022 Patient encounter procedure 07/28/2022 Office Visit Family Medicine Skye Jones, CERTIFIED PROSTHETIST VICE PRESIDENT - DIRECTOR OF PHOTOGRAPHY [address] [place] [id number] [facility] Start: 07-24-2022 Depression Screen Depression Screen [facility] Start: 07-03-2022 Bacteria identified in Urine by Culture [facility] Start: 06-08-[address] of abdomen [facility] Start: 05-27-2022 CT Abdomen and Pelvis WO [facility] Start: 05-27-2022 CT of abdomen and pelvis without contrast CT abdomen pelvis wo [facility] Start: 05-14-2022 Glaucoma screening Diabetic retinal exam [facility] [employer] Start: 05-01-2022 CT Abdomen and Pelvis WO contrast [facility] Start: 05-01-2022 CT of abdomen and pelvis without contrast CT abdomen pelvis wo [facility] Start: 04-15-2022 Creatinine measurement Creatinine monitoring [employer] Phone: Start: 04-15-2022 Potassium monitoring Potassium monitoring [employer] Phone: Start: 04-12-2022 CT Abdomen and Pelvis WO contrast [facility] Start: 04-12-2022 CT of abdomen and pelvis without contrast CT abdomen pelvis wo con [facility] Start: 03-31-[address] of abdomen [facility] Start: 03-31-2022 Ultrasonography of bilateral kidneys US renal BI [facility] Start: 03-31-2022 US Kidney - bilateral [facility] Start: 02-27-2022 Influenza vaccination Flu vaccine (Season Ended) [facility] Start: 01-27-2022 Influenza vaccination Flu vaccine (#1) [facility] [employer] Start: 11-25-2021 Creatinine measurement Creatinine monitoring [employer] Phone: Start: 11-25-2021 Potassium monitoring Potassium monitoring [employer] Phone: Start: 10-22-2021 Hemoglobin A1c measurement A1C test (Diabetic or Prediabetic) [facility] Start: 10-01-2021 Creatinine measurement Creatinine monitoring [employer] Phone: Start: 10-01-2021 Potassium monitoring Potassium monitoring [employer] Phone: Start: 09-26-2021 Creatinine measurement Creatinine monitoring [employer] Phone: Start: 09-26-2021 Potassium monitoring Potassium monitoring [employer] Phone: Start: 08-22-2021 Adolescent depression screening assessment Depression Screening (PHQ9) [place] Start: 08-22-2021 Depression screening using PHQ-9 (Patient Health Questionnaire 9) score [place] Start: 08-14-2021 End: 08-14-2021 Patient encounter procedure [facility] Start: 08-09-2021 End: 02-06-2022 Radiography of [id number] XR Abdomen AP Imaging Routine Kidney stone Expected: 08/09/2021, Expires: 02/06/2022 [place] Comment on above: Expected: 08/09/2021, Expires: Start: 08-09-2021 End: 08-09-2021 Patient encounter procedure [facility] Start: 07-31-2021 Hemoglobin A1c measurement A1C [place] Start: 07-21-2021 Screening for malignant neoplasm of colon [place] Start: 07-01-2021 Creatinine [facility] Start: 07-01-2021 Potassium monitoring Potassium [facility] [place] Start: 05-27-2021 Creatinine measurement Creatinine [email or web address] [place] Start: 05-27-2021 Potassium monitoring Potassium monitoring [facility] [place] Start: 05-25-2021 Creatinine measurement Creatinine [email or web address] [place] Start: 05-25-2021 Potassium monitoring Potassium monitoring [facility] [place] Start: 05-17-2021 Creatinine measurement Creatinine [email or web address] [place] Start: 05-17-2021 Potassium monitoring Potassium monitoring [facility] [place] Start: 02-27-2021 Influenza vaccination [place] Start: 01-11-2021 Statin Therapy Statin Therapy [facility] [place] Start: 08-26-2020 HbA1c (Bld) [Mass fraction] A1C test (Diabetic or Prediabetic) [facility] [place] Start: 08-26-2020 Hemoglobin A1c measurement A1C test (Diabetic or Prediabetic) [facility]: Start: 08-08-2020 HbA1c (Bld) [Mass fraction] A1C test (Diabetic or Prediabetic) [facility] [place] Start: 07-22-2020 Lipid panel [facility] [employer] Start: 07-22-2020 Lipid screen Lipid screen [employer] Phone: Start: 07-05-2020 End: 07-05-2020 Office Visit 07/05/2020 Office Visit Family Medicine Skye Jones CERTIFIED PROSTHETIST VICE PRESIDENT - DIRECTOR OF PHOTOGRAPHY [address] [place] [address] [phone] [facility] Start: 06-05-2020 End: 06-05-2020 Virtual Visit 06/05/2020 Virtual Visit Family Medicine Skye Jones CERTIFIED PROSTHETIST VICE PRESIDENT - DIRECTOR OF PHOTOGRAPHY [address] [place] [address] [phone] [facility] Start: 06-04-2020 End: 06-04-2020 Virtual Visit 06/04/2020 Virtual Visit Family Medicine Skye Jones APRN - DIRECTOR OF PHOTOGRAPHY [address] [facility] [address] [place] [address] [phone] [facility] Start: 05-30-2020 End: 05-30-2020 Virtual Visit 05/30/2020 Virtual Visit Endocrinology Gabriele Gabriel PA [address] [facility] [address] [place] [address] [phone] [facility] Start: 2020 Colonoscopy COLORECTAL CANCER SCREENING [facility] Start: 2020 Screening for malignant neoplasm of colon [facility] Start: 05-04-2020 HbA1c (Bld) [Mass fraction] A1C test (Diabetic or Prediabetic) [place], [place] Start: 04-05-2020 End: 04-05-2020 Office Visit 04/05/2020 Office Visit Family Skye Parisi APRN - DIRECTOR OF PHOTOGRAPHY [address] [facility] [address] [place] [address] [phone] [facility] Start: 04-04-2020 [object Object] Diabetic foot exam [place], [place] Start: 04-04-2020 Diabetic foot examination Diabetic foot exam [facility] Start: 03-29-2020 End: 03-29-2020 Office Visit 03/29/2020 Office Visit Orthopedic Surgery Guillaume Sosa MD [address] [facility] [address] [place] [address] [phone] [facility] Start: 03-15-2020 End: 03-15-2020 Office Visit 03/15/2020 Office Visit Family Skye Parisi APRN - DIRECTOR OF PHOTOGRAPHY [address] [facility] [address] [place] [address] [phone] [facility] Start: 02-28-2020 Influenza vaccination [place], [place] Start: 02-28-2020 Influenza vaccination given Sequential Influenza Vaccine (#1) [place] Start: 02-08-2020 HbA1c (Bld) [Mass fraction] A[facility]C test (Diabetic [facility]iabetic[facility] Start: 02-02-2020 End: 02-02-2020 Office Visit 02/02/2020 Office Visit Family Medicine Skye Jones, CERTIFIED PROSTHETIST VICE PRESIDENT - DIRECTOR OF PHOTOGRAPHY [address] [place] [address] [phone] [facility] Start: 10-21-2019 A1C test (Diabetic or Prediabetic) A1C test (Diabetic or Prediabetic) [facility] Work Phone: Start: 10-21-2019 HbA1c (Bld) [Mass fraction] A1C test (Diabetic or Prediabetic) [facility] [place] Start: 08-24-2019 End: 08-24-2019 Appointment 08/24/2019 Appointment Occupational Therapy Linda Calle OTR/L [facility] Start: 08-22-2019 End: 08-22-2019 Appointment 08/22/2019 Appointment Occupational Therapy Linda Calle OTR/L [facility] Start: 08-17-2019 End: 08-17-2019 Appointment 08/17/2019 Appointment Occupational Therapy Linda Calle OTR/L [facility] Start: 08-10-2019 End: 08-10-2019 Appointment 08/10/2019 Appointment Occupational Therapy Linda Calle, OTR/L [facility] Start: 07-18-2019 A1C test (Diabetic or Prediabetic) A1C test (Diabetic or Prediabetic) [place] Start: 07-14-2019 End: 07-14-2019 Patient encounter procedure 07/14/2019 Office Visit Family Medicine Lauren Gudino, CERTIFIED PROSTHETIST VICE PRESIDENT - DIRECTOR OF PHOTOGRAPHY [address] [place] [address] [phone] [facility] Start: 05-04-2019 A1C test (Diabetic or Prediabetic) A1C test (Diabetic or Prediabetic) [place] Start: 04-28-2019 End: 04-28-2019 Office Visit 04/28/2019 Office Visit Family Medicine Skye Jones, CERTIFIED PROSTHETIST VICE PRESIDENT - DIRECTOR OF PHOTOGRAPHY [address] [place] [address] [phone] [facility] Start: 04-26-2019 End: 04-26-2019 Office Visit 04/26/2019 Office Visit Family Skye Parisi CERTIFIED PROSTHETIST VICE PRESIDENT - DIRECTOR OF PHOTOGRAPHY [address] [place] [address] [phone] [facility] Start: 04-12-2019 End: 04-12-2019 Office Visit 04/12/2019 Office Visit Family Skye Parisi CERTIFIED PROSTHETIST VICE PRESIDENT - DIRECTOR OF PHOTOGRAPHY [address] [place] [address] [phone] [facility] Start: 03-08-2019 End: 03-08-2019 Office Visit 03/08/2019 Office Visit Endocrinology Gabriele Gabriel, PA [address] [address] [phone] [facility] Start: 03-06-2019 Diabetic microalbuminuria test Diabetic microalbuminuria test [place], [place] Start: 03-06-2019 Lipid screen Lipid screen [place], [place] Start: 03-06-2019 Urine screening for protein Diabetic microalbuminuria test [facility] Start: 02-27-2019 Influenza vaccination Flu vaccine (#1) [place], [place] Start: 02-15-2019 End: 02-15-2019 Office Visit 02/15/2019 Office Visit Family Skye Parisi CERTIFIED PROSTHETIST VICE PRESIDENT - DIRECTOR OF PHOTOGRAPHY [address] [place] [address] [phone] [facility] Start: 02-08-2019 End: 02-08-2019 Office Visit 02/08/2019 Office Visit Family Skye Parisi CERTIFIED PROSTHETIST VICE PRESIDENT - DIRECTOR OF PHOTOGRAPHY [address] [place] [address] [phone] [facility] Start: 02-07-2019 End: 02-07-2019 Appointment 02/07/2019 Appointment Radiology Ally Fraga CT Scan Start: 09-22-2016 Hemoglobin A1c/Hemoglobin.total in Blood HBA1C [facility] Start: 12-12-2015 [object Object] Diabetic foot exam [place], [place] Start: 2015 Fasting lipid profile LIPID SCREENING [facility] Start: 2015 Mammography MAMMOGRAM [facility] Start: 2015 Screening for malignant neoplasm of breast Mammogram [place] Start: 2015 Screening mammography MAMMOGRAM SCREENING DISCUSSION [facility] Start: 04-04-2015 Diabetic retinal exam Diabetic retinal exam [place], [place] Start: 12-08-2014 Cervical cancer screen Cervical cancer screen [place], [place] Start: 12-08-2014 Screening for malignant neoplasm of cervix Cervical cancer screen [place], [place] Start: 07-21-2014 Screening for malignant neoplasm of colon [facility] Start: 01-18-2014 Hepatitis B surface antibody level LDL CHOLESTEROL [facility] Start: 11-24-2012 Hepatitis C antibody, confirmatory test DILATED RETINAL EXAM [facility] Start: 2005 HPV TESTING HPV TESTING [facility] Start: 1996 PAP TESTING PAP TESTING [facility] Start: 1996 Screening for malignant neoplasm of cervix CERVICAL CANCER SCREENING DISCUSSION [facility] Start: 1994 DTaP/Tdap/Td vaccine (1 - Tdap) DTaP/Tdap/Td vaccine (1 - Tdap) [facility] Start: 1994 Hepatitis B Vaccine (1 of 3 - Risk 3-dose series) Hepatitis B Vaccine (1 of 3 - Risk 3-dose series) [facility] Start: 1994 Third diphtheria, tetanus and acellular pertussis (DTaP) vaccination TDAP (ADULT) [facility] Start: 1994 Urine microalbumin profile DTAP,TDAP,TD (1 - Tdap) [facility] Start: 1993 Hepatitis C antibody, confirmatory test Hepatitis C Screening [place] Start: 1993 Hepatitis C screening [place] Start: 1993 HEPATITIS C SCREENING HEPATITIS C SCREENING [facility] Start: 1993 HIV SCREENING HIV SCREENING [facility] Start: 1993 Tetanus vaccination TETANUS [facility] Start: 1991 COVID-19 Vaccine (1 of 2) COVID-19 Vaccine (1 of 2) [place] Start: 1991 COVID-19 VACCINE (1) COVID-19 VACCINE (1) [facility] Start: 1991 ONE PNEUMOVAX PRIOR TO AGE 65 ONE PNEUMOVAX PRIOR TO AGE 65 [facility] Start: 1990 HIV screen HIV screen [place], [place] Start: 1990 HIV screening [place] Start: 1988 HIV screening HIV SCREENING DISCUSSION [facility] Start: 1987 Adolescent depression screening assessment [place] Start: 1987 COVID-19 VACCINE (1) COVID-19 VACCINE (1) [place] Start: 1986 DTaP/Tdap/Td vaccine (1 - Tdap) DTaP/Tdap/Td vaccine (1 - Tdap) [employer] Phone: Start: 1985 3 comp foot exam completed DIABETIC FOOT EXAM [facility] Start: 1985 Diabetic foot examination Foot Exam [place] Start: 1985 Hepatitis B screening URINE ALBUMIN:CREATININE RATIO [facility] Start: 1985 Microalbumin measurement, urine, quantitative Urine Microalbumin [place] Start: 1985 Ophthalmic examination and evaluation Ophthalmology Exam [place] Start: 1981 Pneumococcal 0-64 years Vaccine (1 - PCV) Pneumococcal 0-64 years Vaccine (1 - PCV) [facility] Start: 1981 Pneumococcal 0-64 years Vaccine (1 of 1 - PPSV23) Pneumococcal 0-64 years Vaccine (1 of 1 - PPSV23) [place] Start: 1981 Pneumococcal 0-64 years Vaccine (1 of 2 - PPSV23) Pneumococcal 0-64 years Vaccine (1 of 2 - PPSV23) [facility] [employer] Phone: Start: 1981 Pneumococcal Vaccine: Ped or At-Risk (1 of 2 - PPSV23) Pneumococcal Vaccine: Ped or At-Risk (1 of 2 - PPSV23) [place] Start: 1980 COVID-19 VACCINE (1) COVID-19 VACCINE (1) [facility] Start: 1978 History and physical examination, annual for health maintenance Wellness Visit [place] Start: 1975 COVID-19 Vaccine (#1) COVID-19 Vaccine (#1) [facility] [employer] Start: 1975 Hepatitis B vaccine (1 of 3 - 3-dose series) Hepatitis B vaccine (1 of 3 - 3-dose series) [facility] Start: 1975 Hepatitis C antibody, confirmatory test HEPATITIS C VIRUS SCREENING [facility] Start: 1975 Hepatitis C screening Hepatitis C screen [place], [place] Start: 1975 Screening for malignant neoplasm of cervix Pap Smear [place] Start: 1975 Screening for malignant neoplasm of colon [place] Start: 1975 Screening mammography Mammogram [place] Start: 1975 Tetanus vaccination Tetanus: Every 10yrs [place] End: 07-08-2020 Bacteria identified Aer cx Nom (Unsp spec) Urine Aerobic Culture Microbiology Routine Once for 1 Occurrences starting 07/08/2020 until 07/08/2020 [place] Comment on above: Once for 1 Occurrences starting 07/08/19 21 until 07/08/2020 Bacteria identified Aer cx Nom (Unsp spec) [place] End: 08-14-2020 Bacteria identified Aer cx Nom (Unsp spec) Urine Aerobic Culture Microbiology Routine Once for 1 Occurrences starting 08/14/2020 until 08/14/2020 [place] Comment on above: Once for 1 Occurrences starting 08/14/19 21 until 08/14/2020 End: 07-16-2020 Bacteria identified Aer cx Nom (Unsp spec) Urine Aerobic Culture Microbiology Routine Once for 1 Occurrences starting 07/16/2020 until 07/16/2020 [place] Comment on above: Once for 1 Occurrences starting 07/16/19 21 until 07/16/2020 End: 02-28-2019 Bacteria identified Cx Nom (U) Urine Culture Microbiology STAT One Time for 1 Occurrences starting 02/28/2019 until 02/28/2019 [place], [place] Comment on above: One Time for 1 Occurrences starting 07/2018 until 02/28/2019 Bacteria identified Cx Nom (U) [facility] End: 04-05-2019 Bacteria identified Cx Nom (U) Urine Culture Microbiology STAT Once for 1 Occurrences starting 04/05/2019 until 04/05/2019 [facility] [place] Comment on above: Once for 1 Occurrences starting 04/05/20 19 until 04/05/2019 Bacteria identified in Blood by Culture [employer] Phone: Bacteria identified in Blood by Culture [facility] Bacteria identified in Blood by Culture [facility] Bacteria identified in Unspecified specimen by Aerobe culture Urine Aerobic Culture Microbiology Routine 12/05/2021 10:00 AM EDT [employer] Phone: End: 07-09-2019 Bacteria identified in Urine by Culture Urine Culture Microbiology STAT One Time for 1 Occurrences starting 07/09/2019 until 07/09/2019 [employer] Phone: Comment on above: One Time for 1 Occurrences starting 06/29 until 07/09/2019 End: 07-14-2019 Bacteria identified in Urine by Culture Urine Culture Microbiology STAT Once for 1 Occurrences starting 07/14/2019 until 07/14/2019 [employer] Phone: Comment on above: Once for 1 Occurrences starting 07/14/19 until 07/14/2019 Bacteria identified in Urine by Culture [facility] Bacteria identified in Urine by Culture [facility] End: 03-20-2020 Basic metabolic 2000 panel Basic Metabolic Panel Lab STAT One Time for 1 Occurrences starting 03/20/2020 until 03/20/2020 [facility] [place] Comment on above: One Time for 1 Occurrences starting 02/28 until 03/20/2020 End: 07-11-2019 Basic metabolic 2000 panel - Serum or Plasma Basic Metabolic Panel Lab STAT One Time for 1 Occurrences starting 07/11/2019 until 07/11/2019 [employer] Phone: Comment on above: One Time for 1 Occurrences starting 06/29 until 07/11/2019 Bilirubin measuremen t, urine [facility] End: 08-18-2019 CBC Auto Differential CBC Auto Differential Lab STAT One Time for 1 Occurrences starting 08/18/2019 until 08/18/2019 [facility] [place] Comment on above: One Time for 1 Occurrences starting 07/31 until 08/18/2019 End: 03-20-2020 CBC Auto Differential CBC Auto Differential Lab STAT One Time for 1 Occurrences starting 03/20/2020 until 03/20/2020 [facility] [place] Comment on above: One Time for 1 Occurrences starting 02/28 until 03/20/2020 End: 04-29-2020 CBC Auto Differential CBC Auto Differential Lab STAT Once for 1 Occurrences starting 04/29/2020 until 04/29/2020 [facility] [place] Comment on above: Once for 1 Occurrences starting 04/29/20 until 04/29/[address] [facility] [place] Comment on above: Daily until discontinued starting 2019, 13 completed Daily until disconti nued starting 05/28/2020, 1 completed End: 09-26-2020 CBC Auto Differential CBC Auto Differential Lab STAT One Time for 1 Occurrences starting 09/26/2020 until 09/26/2020 [employer] Phone: Comment on above: One Time for 1 Occurrences starting 08/29 until 09/26/2020 End: 07-11-2019 CBC W Auto Differential panel - Blood CBC Auto Differential Lab STAT One Time for 1 Occurrences starting 07/11/2019 until 07/11/2019 [employer] Phone: Comment on above: One Time for 1 Occurrences starting 06/29 until 07/11/2019 End: 07-03-2023 CBC W Auto Differential panel - Blood CBC with Auto Differential Lab Routine Daily for 3 Days starting 07/01/2023 until 07/03/2023, 1 completed [facility] [employer] Comment on above: Daily for 3 Days starting 07/01/2023 unt il 07/03/2023, 1 completed Choriogonadotropin ( test) [Presence] in Urine [facility] Color of Urine [facility] End: 08-18-2019 Comprehensive metabolic 2000 panel Comprehensive Metabolic Panel Lab STAT One Time for 1 Occurrences starting 08/18/2019 until 08/18/2019 [facility] [place] Comment on above: One Time for 1 Occurrences starting 07/31 until 08/18/2019 End: 08-13-2022 Comprehensive metabolic 2000 panel - Serum or Plasma [employer] Phone: Comment on above: One Time for 1 Occurrences starting 07/30 until 08/13/2022 End: 07-03-2023 Comprehensive metabolic 2000 panel - Serum or Plasma Comprehensive Metabolic Panel Lab Routine Daily for 3 Days starting 07/01/2023 until 07/03/2023, 1 completed [place] Comment on above: Daily for 3 Days starting 07/01/2023 unt il 07/03/2023, 1 completed Comprehensive Metabo lic Panel w/ Reflex to MG Comprehensive Metabolic Panel w/ Reflex to MG Lab Routine Daily until discontinued starting 05/28/2020, 1 completed [employer] Comment on above: Daily until discontinued starting 2019, 1 completed Continuous pulse oximetry Pulse oximetry, continuous Respiratory Care Routine Every 4hr until discontinued starting 05/16/2020 [employer] Comment on above: Every 4hr until discontinued starting End: 01-13-2020 CT ABDOMEN PELVIS W IV CONTRAST Additional Contrast? None CT ABDOMEN PELVIS W IV CONTRAST Additional Contrast? None Imaging STAT Once for 1 Occurrences starting 01/13/2020 until 01/13/2020 [employer] Comment on above: Once for 1 Occurrences starting 01/13/20 until 01/13/2020 CT ABDOMEN PELVIS W IV CONTRAST Additional Contrast? None [employer] End: 09-26-2020 CT ABDOMEN PELVIS W IV CONTRAST Additional Contrast? None CT ABDOMEN PELVIS W IV CONTRAST Additional Contrast? None Imaging Routine Once for 1 Occurrences starting 09/26/2020 until 09/26/2020 [employer] Phone: Comment on above: Once for 1 Occurrences starting 09/27/19 21 until 09/26/2020 End: 04-29-2020 CT ABDOMEN PELVIS WO CONTRAST Additional Contrast? None CT ABDOMEN PELVIS WO CONTRAST Additional Contrast? None Imaging STAT Once for 1 Occurrences starting 04/29/2020 until 04/29/2020 [employer] Comment on above: Once for 1 Occurrences starting 04/29/20 20 until 04/29/2020 CT ABDOMEN PELVIS WO CONTRAST Additional Contrast? None [employer] End: 02-16-2020 CT ABDOMEN PELVIS WO CONTRAST Additional Contrast? None CT ABDOMEN PELVIS WO CONTRAST Additional Contrast? None Imaging STAT Once for 1 Occurrences starting 02/16/2020 until 02/16/2020 [facility] [place] Comment on above: Once for 1 Occurrences starting 02/16/20 until 02/16/2020 End: 10-01-2020 CT ABDOMEN PELVIS WO CONTRAST Additional Contrast? None CT ABDOMEN PELVIS WO CONTRAST Additional Contrast? None Imaging Routine Once for 1 Occurrences starting 10/01/2020 until 10/01/2020 [employer] Phone: Comment on above: Once for 1 Occurrences starting 10/02/19 until 10/01/2020 End: 08-13-2022 CT ABDOMEN PELVIS WO CONTRAST Additional Contrast? None [facility] [employer] DD Phone: Comment on above: Once for 1 Occurrences starting 08/13/19 23 until 08/13/2022 End: 07-01-2020 CT KIDNEY WO CONTRAST CT KIDNEY WO CONTRAST Imaging Routine Once for 1 Occurrences starting 07/01/2020 until 07/01/2020 [place] Comment on above: Once for 1 Occurrences starting 07/01/19 until 07/01/2020 CT KIDNEY WO CONTRAST CT KIDNEY WO CONTRAST Imaging STAT 07/01/2020 11:12 PM EST [facility] [place] Culture Blood #1 Culture Blood # 1 Microbiology STAT 04/18/2019 12:02 AM EDT [place], [place] End: 07-11-2019 Culture Blood #1 Culture Blood #1 Microbiology STAT One Time for 1 Occurrences starting 07/11/2019 until 07/11/2019 [employer] Phone: Comment on above: One Time for 1 Occurrences starting 06/29 until 07/11/2019 End: 07-11-2019 Culture Blood #2 Culture Blood #2 Microbiology STAT One Time for 1 Occurrences starting 07/11/2019 until 07/11/2019 [employer] Phone: Comment on above: One Time for 1 Occurrences starting 06/29 until 07/11/2019 End: 05-27-2020 Culture, Blood 1 Culture, Blood 1 Microbiology STAT One Time for 1 Occurrences starting 05/27/2020 until 05/27/2020 [facility], [place] Comment on above: One Time for 1 Occurrences starting 04/30 until 05/27/2020 Culture, Blood 1 Culture, Blood 1 Microbiology STAT 05/27/2020 10:[address] [facility] [place] End: 05-27-2020 Culture, Blood 2 Culture, Blood 2 Microbiology STAT One Time for 1 Occurrences starting 05/27/2020 until 05/27/2020 [place] Comment on above: One Time for 1 Occurrences starting 04/30 until 05/27/2020 Culture, Blood 2 [facility], [place] End: 08-18-2019 Culture, Urine Culture, Urine Microbiology STAT Once for 1 Occurrences starting 08/18/2019 until 08/18/2019 [place] Comment on above: Once for 1 Occurrences starting 08/18/19 until 08/18/2019 End: 10-20-2019 Culture, Urine Culture, Urine Microbiology STAT Once for 1 Occurrences starting 10/20/2019 until 10/20/2019 [place] Comment on above: Once for 1 Occurrences starting 10/20/19 until 10/20/2019 End: 01-08-2020 Culture, Urine Culture, Urine Microbiology STAT Once for 1 Occurrences starting 01/08/2020 until 01/08/2020 [place] Comment on above: Once for 1 Occurrences starting 01/08/20 until 01/08/2020 End: 01-13-2020 Culture, Urine Culture, Urine Microbiology STAT Once for 1 Occurrences starting 01/13/2020 until 01/13/2020 [place] Comment on above: Once for 1 Occurrences starting 01/13/20 until 01/13/2020 End: 04-30-2020 Culture, Urine Culture, Urine Microbiology STAT Once for 1 Occurrences starting 04/30/2020 until 04/30/2020 [place] Comment on above: Once for 1 Occurrences starting 04/30/20 until 04/30/2020 End: 05-27-2020 Culture, Urine Culture, Urine Microbiology STAT Once for 1 Occurrences starting 05/27/2020 until 05/27/2020 [place] Comment on above: Once for 1 Occurrences starting 05/27/20 until 05/27/2020 End: 07-01-2020 Culture, Urine Culture, Urine Microbiology STAT Once for 1 Occurrences starting 07/01/2020 until 07/01/2020 [employer] Comment on above: Once for 1 Occurrences starting 07/01/19 until 07/01/2020 End: 02-16-2020 Culture, Urine Culture, Urine Microbiology STAT Once for 1 Occurrences starting 02/16/2020 until 02/16/2020 [facility] Comment on above: Once for 1 Occurrences starting 02/16/20 until 02/16/2020 End: 09-26-2020 Culture, Urine Culture, Urine Microbiology STAT Once for 1 Occurrences starting 09/26/2020 until 09/26/2020 [employer] Phone: Comment on above: Once for 1 Occurrences starting 09/27/19 until 09/26/2020 End: 09-17-2022 Culture, Urine Culture, Urine Microbiology STAT Once for 1 Occurrences starting 09/17/2022 until 09/17/2022 [employer] Phone: Comment on above: Once for 1 Occurrences starting 09/18/19 23 until 09/17/2022 Culture, Urine Culture, Urine Microbiology STAT 09/17/2022 1:30 AM EDT [employer] Phone: D-Dimer, Quantitative [employer] Comment on above: Daily until discontinued starting 2019, 11 completed Daily until disconti nued starting 05/28/2020, 1 completed Detection of hemoglobin [facility] EKG 12 Lead [employer] Work Phone: Ferritin [Mass/Vol] Ferritin Lab Routine Daily until discontinued starting 05/08/2020, 11 completed [employer] Comment on above: Daily until discontinued starting 2019, 11 completed Fibrinogen Fibrinogen Lab R outine Daily until discontinued starting 05/28/2020, 1 completed [employer] Comment on above: Daily until discontinued starting 2019, 1 completed End: 09-17-2022 Glucose [Mass/volume] in Serum or Plasma POCT Glucose Point of Care Testing STAT One Time for 1 Occurrences starting 09/17/2022 until 09/17/2022 [place] Work Phone: Comment on above: One Time for 1 Occurrences starting 08/28 until 09/17/2022 End: 06-30-2023 Glucose [Mass/volume] in Serum or Plasma [place] Comment on above: One Time for 1 Occurrences starting 07/2023 until 06/30/2023 4X Daily (AC & HS) u ntil discontinued starting 06/30/2023 As Needed until disc ontinued starting 06/30/2023 Glucose [Mass/volume ] in Serum or Plasma POCT Glucose Point of Care Testing STAT As Needed until discontinued starting 07/08/2023 [place] Work Phone: Comment on above: As Needed until discontinued starting Glucose [Mass/volume ] in Serum or Plasma POCT Glucose Point of Care Testing Routine 4X Daily (AC & HS) until discontinued starting 07/08/2023 [place] Comment on above: 4X Daily (AC & HS) until discontinued st arting 07/08/2023 Glucose [Mass/volume ] in Urine by Test strip [facility] H/O: hysterectomy History of hysterectomy [facility] High sensitivity CRP High sensit ivity CRP Lab Routine Daily until discontinued starting 05/08/2020, 11 completed [employer] Comment on above: Daily until discontinued starting 2019, 11 completed History of cholecystectomy Histo ry of cholecystectomy [facility] History of hernia repair History of herni a repair [facility] Initiate Oxygen Ther apy Protocol Initiate Oxygen Therapy Protocol Respiratory Care Routine Daily until discontinued starting 04/18/2019 [employer] Comment on above: Daily until discontinued starting 2018 End: 05-28-2020 Intermittent pulse oximetry Pulse Oximetry Spot Check Respiratory Care Routine One Time for 1 Occurrences starting 05/28/2020 until 05/28/2020 [employer] Comment on above: One Time for 1 Occurrences starting 05/01 until 05/28/2020 End: 01-14-2020 Lactate, Sepsis Lactate, Sepsis Lab Timed Now Then Every 2hr for 2 Occurrences starting 01/13/2020 until 01/14/2020, 1 completed [employer] Comment on above: Now Then Every 2hr for 2 Occurrences sta rting 01/13/2020 until 01/14/2020, 1 completed End: 07-11-2019 Lactic Acid, Plasma Lactic Acid, Plasma Lab STAT One Time for 1 Occurrences starting 07/11/2019 until 07/11/2019 [employer] Phone: Comment on above: One Time for 1 Occurrences starting 06/29 until 07/11/2019 End: 08-24-2022 Lipase [Enzymatic activity/volume] in Serum or Plasma Lipase Lab STAT One Time for 1 Occurrences starting 08/24/2022 until 08/24/2022 [employer] Phone: Comment on above: One Time for 1 Occurrences starting 07/31 until 08/24/2022 Magnesium [Mass/Vol] Magnesium L ab Routine Daily until discontinued starting 05/08/2020, 11 completed [employer] Comment on above: Daily until discontinued starting 2019, 11 completed End: 07-03-2023 Magnesium [Mass/volume] in Serum or Plasma Magnesium Lab Routine Daily for 3 Days starting 07/01/2023 until 07/03/2023, 1 completed [place] Comment on above: Daily for 3 Days starting 07/01/2023 unt il 07/03/2023, 1 completed MDI Treatment MDI Treatment Respiratory Care Routine Every 4hr until discontinued starting 05/28/2020 [employer] Comment on above: Every 4hr until discontinued starting Measurement of keton es in urine using dipstick [facility] End: 07-09-2019 Microscopic urinalysis Microscopic Urinalysis Lab STAT Once for 1 Occurrences starting 07/09/2019 until 07/09/2019 [employer] Phone: Comment on above: Once for 1 Occurrences starting 07/09/19 20 until 07/09/2019 Microscopic urinalysis Microscop ic Urinalysis Lab STAT 07/09/2019 7:15 PM EST [employer] Phone: Oxygen therapy [[facility] Data Set] [employer] Comment on above: Daily until discontinued starting 2019 Daily until disconti nued starting 05/28/2020 Oxygen therapy [[facility] Data Set] Initiate Oxygen Therapy Protocol Respiratory Care Routine As Needed until discontinued starting 06/30/2023 [facility] Comment on above: As Needed until discontinued starting Patient Education [facility] Work Phone: Patient referral [facility] Work Phone: POCT glucose [facility] [place] Comment on above: 4X Daily (AC & HS) until discontinued st arting 05/06/2020 As Needed until disc ontinued starting 05/06/2020 4X Daily (AC & HS) u ntil discontinued starting 05/07/2020 As Needed until disc ontinued starting 05/28/2020 4X Daily (AC & HS) u ntil discontinued starting 05/28/2020 4X Daily (AC & HS) u ntil discontinued starting 04/18/2019 As Needed until disc ontinued starting 04/18/2019 Protein measurement, urine F [facility] Protime-INR, Post Transfusion Protime-INR, Post Transfusion Lab Routine Post Transfusion Post Transfusion Post Transfustion for 1 Occurrences starting 05/07/2020 [employer] Comment on above: Post Transfusion Post Transfusion Post T ransfustion for 1 Occurrences starting 05/07/2020 RENAL FUNCTION PANEL RENAL FUNCT ION PANEL Lab Routine Daily until discontinued starting 05/13/2020, 6 completed [employer] Comment on above: Daily until discontinued starting 2019, 6 completed Spirometry panel Incentive lupillo metry RT Respiratory Care Routine Every 2hr while awake until discontinued starting 05/05/2020 [employer] Comment on above: Every 2hr while awake until discontinued starting 05/05/2020 Spirometry panel Incentive lupillo metry Respiratory Care Routine Every 2hr while awake until discontinued starting 06/30/2023 [facility] Comment on above: Every 2hr while awake until discontinued starting 06/30/2023 Transfuse COVID-19 Convalescent Plasma Transfuse COVID-19 Convalescent Plasma Nursing Transfusion Routine 05/08/2020 4:01 PM EST [facility] Urinalysis, specific gravity measurement [facility] Urine dipstick for nitrite F [facility] Urine dipstick for specific gravity [facility] Urine pH test [facility] End: 11-25-2020 Urine Reflex to Culture Urine Reflex to Culture Lab STAT One Time for 1 Occurrences starting 11/25/2020 until 11/25/2020 [employer] Phone: Comment on above: One Time for 1 Occurrences starting 10/29 until 11/25/2020 End: 07-11-2019 Urine Reflex to Culture Urine Reflex to Culture Lab STAT One Time for 1 Occurrences starting 07/11/2019 until 07/11/2019 [facility] Comment on above: One Time for 1 Occurrences starting 06/29 until 07/11/2019 Urobilinogen concentration, test strip measurement [facility] End: 01-08-2020 XR ABDOMEN (KUB) (SINGLE AP VIEW) XR ABDOMEN (KUB) (SINGLE AP VIEW) Imaging STAT Once for 1 Occurrences starting 01/08/2020 until 01/08/2020 [facility] [place] Comment on above: Once for 1 Occurrences starting 01/08/20 20 until 01/08/2020 XR ABDOMEN (KUB) (SI NGLE AP VIEW) [place] End: 02-19-2020 XR ABDOMEN (KUB) (SINGLE AP VIEW) XR ABDOMEN (KUB) (SINGLE AP VIEW) Imaging STAT Once for 1 Occurrences starting 02/19/2020 until 02/19/2020 [place] Comment on above: Once for 1 Occurrences starting 02/19/20 20 until 02/19/2020 End: 11-25-2020 XR ABDOMEN (KUB) (SINGLE AP VIEW) XR ABDOMEN (KUB) (SINGLE AP VIEW) Imaging STAT Once for 1 Occurrences starting 11/25/2020 until 11/25/2020 [employer] Phone: Comment on above: Once for 1 Occurrences starting 11/26/19 21 until 11/25/2020 End: 04-15-2021 XR ABDOMEN (KUB) (SINGLE AP VIEW) XR ABDOMEN (KUB) (SINGLE AP VIEW) Imaging Routine Once for 1 Occurrences starting 04/15/2021 until 04/15/2021 [employer] Phone: Comment on above: Once for 1 Occurrences starting 04/15/20 21 until 04/15/2021 End: 05-25-2020 XR CHEST PORTABLE XR CHEST PORTABLE Imaging STAT Once for 1 Occurrences starting 05/25/2020 until 05/25/2020 [place] Comment on above: Once for 1 Occurrences starting 05/25/20 20 until 05/25/2020 XR CHEST PORTABLE XR CHEST GAL BLE Imaging STAT 05/25/2020 5:28 PM EST [facility] Immunizations Immunization Date Immunization Notes Care Provider Fa cility 12-01-2022 Pneumococcal, PCV20, PREVNAR 20, (age 6w+), IM, 0.5mL Ruben Abdi MD Work Phone: [facility] 12-01-2022 tetanus toxoid, redu elida diphtheria toxoid, and acellular pertussis vaccine, adsorbed Ruben Abdi MD Work Phone: [facility] 04-23-2018 influenza virus vaccine, unspecified formulation Skye Jones [place], [place] 04-23-2018 influenza, injectabl e, quadrivalent, preservative free Linda Calle [facility] Payers Date Payer Category Payer Self-pay [id number] 2020 Medicaid [facility] [id number] 2020-Present [phone] [address] [place] [address] [id number] .7.3.042604.315 2020 Medicaid [id number] 2019 Unknown MEDICAL MUTUAL M EDICAL MUTUAL [address] [id number] 2019-Present [phone] [address] [place] [address] [id number] 1.2.840.298129.1.13.239.2 .7.3.579737.315 2019 Unknown [id number] 1.2.840.611849.1.13.239.2 .7.3.724775.315 2019 Unknown COMPMANAGEMENT COMPMANAGEMENT (MCO) xxxxxxxx 2019-Present [phone] [address] [place] [address] xxxxxxxx 1.2.840.295547.1.13.239.2 .7.3.112133.315 2019 Unknown COMPMANAGEMENT COMPMANAGEMENT (MCO) xxxxxxxxx 2019-Present [phone] [address] [place] [address] xxxxxxxxx 1.2.840.695259.1.13.239.2 .7.3.143099.315 2018 Unknown MEDICAL MUTUAL M EDICAL MUTUAL [address] xxxxxxxxxxxx 2018-Present [phone] [address] [place] [address] xxxxxxxxxxxx 1.2.840.306396.1.13.239.2 .7.3.790995.315 2011 Medicaid [id number] 1.2.840.076603.1.13.385.2 .7.3.673226.315 2011 Unknown VISION SELF PAY SELF PAY VISION [id number] 2011-2015 VISION Indemnity [id number] 1.2.840.791558.1.13.159.2 .7.3.961027.315 1975 Unknown [id number] 2.16.840.1.875923.3.579.2 .355 1975 Unknown [id number] 2.16.840.1.882286.3.579.2 .355 1975 Unknown [id number] 2.16.840.1.695236.3.579.2 .355 1975 Unknown [id number] 2.16.840.1.559646.3.579.2 .651 1975 Unknown [id number] 2.16.840.1.556229.3.579.2 .903 1975 Unknown [id number] 2.16.840.1.489415.3.579.2 .903 1975 Unknown [id number] 2.16.840.1.160221.3.579.2 .419 1975 Unknown [id number] 2.16.840.1.191270.3.579.2 .419 1975 Unknown [id number] 2.16.840.1.979112.3.579.2 .419 1975 Unknown [id number] 2.16.840.1.608932.3.579.2 .419 1975 Unknown [id number] 2.16.840.1.315625.3.579.2 .419 1975 Unknown [id number] 2.16.840.1.357024.3.579.2 .593 1975 Unknown [id number] 2.16.840.1.719478.3.579.2 .902 1975 Unknown [id number] 2.16.840.1.004399.3.579.2 .902 1975 Unknown [id number] 2.16.840.1.034009.3.579.2 .902 1975 Unknown [id number] 2.16.840.1.708299.3.579.2 .902 1975 Unknown [id number] 2.16.840.1.231714.3.579.2 .903 1975 Unknown [id number] 2.16.840.1.493230.3.579.2 .903 1975 Unknown [id number] 2.16.840.1.608832.3.579.2 .903 1975 Unknown [id number] 2.16.840.1.708180.3.579.2 .903 1975 Unknown [id number] 2.16.840.1.804758.3.579.2 .903 1975 Unknown [id number] 2.16.840.1.393524.3.579.2 .903 1975 Unknown [id number] 2.16.840.1.746681.3.579.2 .903 1975 Unknown [id number] 2.16.840.1.119400.3.579.2 .356 1975 Unknown [id number] 2.16.840.1.405466.3.579.2 .1068 1975 Unknown [id number] 2.16.840.1.088173.3.579.2 .1068 1975 Unknown [id number] 2.16.840.1.746839.3.579.2 .900 1975 Unknown [id number] 2.16.840.1.430514.3.579.2 .173 1975 Unknown [id number] 2.16.840.1.408197.3.579.2 .173 1975 Unknown [id number] 2.16.840.1.735457.3.579.2 .727 1975 Unknown [id number] 2.16.840.1.473137.3.579.2 .727 1975 Unknown [id number] 2.16.840.1.696055.3.579.2 .727 1975 Unknown [id number] 2.16.840.1.393515.3.579.2 .727 1975 Unknown [id number] 2.16.840.1.995772.3.579.2 .727 1975 Unknown [id number] 2.16.840.1.991646.3.579.2 .727 1975 Unknown [id number] 2.16.840.1.617473.3.579.2 .727 1975 Unknown [id number] 2.16.840.1.499081.3.579.2 .727 1975 Unknown [id number] 2.16.840.1.152828.3.579.2 .727 1975 Unknown [id number] 2.16.840.1.795068.3.579.2 .727 1975 Unknown [id number] 2.16.840.1.025498.3.579.2 .727 1975 Unknown [id number] 2.16.840.1.412289.3.579.2 .727 1975 Unknown [id number] 2.16840.1.535023.3.579.2 .727 1975 Unknown [id number] 2.16.840.1.474270.3.579.2 .182 1975 Unknown [id number] 2.16.840.1.305076.3.579.2 .182 1975 Unknown [id number] 2.16.840.1.172642.3.579.2 .182 1975 Unknown [id number] 2.16840.1.248930.3.579.2 .182 1975 Unknown [id number] 2.16.840.1.326235.3.579.2 .182 1975 Unknown [id number] 2.16.840.1.568124.3.579.2 .182 1975 Unknown [id number] 2.16.840.1.549010.3.579.2 .182 1975 Unknown [id number] 2.16.840.1.732922.3.579.2 .182 1975 Unknown [id number] 2.16.840.1.207691.3.579.2 .182 1975 Unknown [id number] 2..840.1.685988.3.579.2 .182 1959 Unknown [id number] 1.2.840.947094.1.13.239.2 .7.3.282721.315 1959 Unknown [id number] Private Health Insurance [id number] Private Health Insurance [id number] Unknown [id number] Unknown Unknown [id number] Unknown [id number] 2.16.840.1.969286.3.579.2 .531 Unknown [id number] 2.16.840.1.026285.3.579.2 .531 Unknown [id number] 2.16.840.1.740617.3.579.2 .531 Unknown [id number] 2.16.840.1.805040.3.579.2 .531 Unknown [id number] 2.16.840.1.125913.3.579.2 .531 Unknown [id number] 2.16.840.1.117449.3.579.2 .531 Unknown [id number] 2.16.840.1.649291.3.579.2 .531 Unknown [id number] 2.16.840.1.297867.3.579.2 .531 Unknown [id number] 2.16.840.1.393707.3.579.2 .531 Unknown [id number] 2.16.840.1.887610.3.579.2 .531 Unknown [id number] 2.16.840.1.692028.3.579.2 .531 Unknown [id number] 2.16.840.1.223785.3.579.2 .531 Unknown [id number] 2.16.840.1.698497.3.579.2 .531 Unknown [id number] 2.16.840.1.900081.3.579.2 .531 Unknown [id number] 2.16.840.1.002175.3.579.2 .531 Unknown [id number] 2.16.840.1.084784.3.579.2 .531 Unknown [id number] 2.16.840.1.096404.3.579.2 .531 Unknown [id number] 2.16.840.1.418888.3.579.2 .531 Unknown [id number] 2.16.840.1.991374.3.579.2 .531 Unknown [id number] 2.16.840.1.372002.3.579.2 .531 Social History Date Type Detail Facility Start: 02-08-2019 End: 01-28-2022 Tobacco smoking status NHIS Never smoker [place] Start: 02-08-2019 End: 07-08-2023 Alcohol intake No [place], [place] Start: 1975 Sex Assigned At Not on file [place] Start: 07-21-2019 End: 08-27-2022 Alcohol intake Current non-drinker of alcohol (finding) [employer] Phone: Start: 07-19-2019 End: 08-27-2022 History SDOH Financial 5 [employer]2 Phone: Start: 07-19-2019 End: 08-27-2022 History SDOH Food Worry 1 [employer]2 Phone: Start: 07-19-2019 End: 08-27-2022 History SDOH Transport Med 2 L2 Phone: Exposure to SARS-CoV-2 (event) Unable to assess [place] Start: 01-08-2020 End: 01-28-2022 Tobacco use and exposure Never used [place] Start: 11-23-2021 End: 09-17-2022 Exposure to SARS-CoV-2 (event) Not sure [facility] Exposure to SARS-CoV-2 (event) Yes [facility] Start: 07-08-2020 End: 07-01-2023 Alcohol intake Lifetime non-drinker (finding) [place] Start: 09-20-2020 End: 06-25-2021 Alcohol intake Ex-drinker (finding) [facility] Tobacco smoking consumption unknown [facility] Start: 1975 Sex Assigned At [facility] Start: 12-04-2021 End: 07-08-2023 Cigarette pack-years [place] Start: 08-14-2022 History SDOH Alcohol Std Drinks 0 [place] Work Phone: Tobacco [facility] Comment on above: denies. Tobacco smoking status No Smoking Status Entered [facility] How often to you hav e a drink containing alcohol? Never [place] How many standard drinks containing alcohol do you have on a typical day? Patient does not drink [place] (I/We) worried whether (my/our) food would run out before (I/we) got money to buy more. Never true [place] At any time in the past 12 months, were you homeless or living in retirement [including now]? No [place] Start: 07-18-2021 Gender identity Identifies as female gender (finding) [place] Start: 07-18-2021 Sexual orientation Heterosexual (jake whiting) [place] NEGATED: Highlighted row - - QU-Mmallowhbihnih-Ed [employer] Work Phone: Medical Equipment Procedure Code Equipment Code Equipment Origin al Text Equipment Identifier Dates use daily as directed [id number] Sta rt: 01-07-2019 4 times daily fo r fluctuating glucose WHATEVER [employer] [id number] Start: 01-05-2018 1 each by Does n ot apply route 4 times daily Please provide lancets compatible with One Touch Verio [id number] Start: 01-06-2018 USE FOUR TIMES DAILY [id number] Star t: 04-20-2018 USE FOUR TIMES DAILY [id number] Star t: 04-26-2018 Test 4 times a d ay & as needed for symptoms of irregular blood glucose. [id number] Start: 04-05-2019 test 4 times silvina ly as directed [id number] Start: 04-08-2019 use daily as directed [id number] Sta rt: 03-06-2019 use daily as directed [id number] Sta rt: 06-02-2019 use 4 times leland y as directed with insulin injections [id number] Start: 02-03-2020 Test 4 times a d ay & as needed for symptoms of irregular blood glucose. [id number] Start: 04-01-2020 use 4 times leland y as directed with insulin injections [id number] Start: 05-27-2020 Test 4 times a d ay & as needed for symptoms of irregular blood glucose. [id number] Start: 06-07-2020 use 4 times leland y as directed with insulin injections [id number] Start: 06-13-2020 1 each by Does n ot apply route 4 times daily [id number] Start: 04-05-2019 Stent 6 X 28 Con tour W/O Wire - Sn/A [id number])N/A, [id number] FDA Start: 01-30-2021 1 strip by Other route 4 times daily (before meals and nightly) Pt test 4x daily Dx E11.65. May substitute for generic or insurance covered product [id number] Start: 06-19-2021 1 each by Does n ot apply route 4 times daily (before meals and nightly) [id number] Start: 06-19-2021 1 each by Does n ot apply route 4 times daily (before meals and nightly) Pt test 4x daily Dx E11.65. May substitute for generic or insurance covered product [id number] Start: 06-19-2021 USE 1 PEN NEEDLE 4 TIMES DAILY BEFORE MEAL(S) AND NIGHTLY [id number] Start: 10-25-2021 use 4 times lealnd y as directed with insulin injections [id number] Start: 05-22-2021 End: 12-04-2021 SHOULDER ARTHROS COPY W/ POSSIBLE REPAIR Omi Watkins DO 04/25/22 Unknown Shoulder R FDA Start: 04-25-2022 SHOULDER ARTHROS COPY W/ POSSIBLE REPAIR Brown DO, Omi A 04/25/22 Unknown Shoulder R FDA Start: 04-25-2022 SHOULDER ARTHROS COPY W/ POSSIBLE REPAIR Brown DO, Omi A 04/25/22 Unknown Shoulder R FDA Start: 04-25-2022 SHOULDER ARTHROS COPY W/ POSSIBLE REPAIR Brown DO, Omi A 04/25/22 Unknown Shoulder R FDA Start: 04-25-2022 SHOULDER ARTHROS COPY W/ POSSIBLE REPAIR Brown DO, Omi A 04/25/22 Unknown Shoulder R FDA Start: 04-25-2022 SHOULDER ARTHROS COPY W/ POSSIBLE REPAIR Brown DO, Omi A 04/25/22 Unknown Shoulder R FDA Start: 04-25-2022 SHOULDER ARTHROS COPY W/ POSSIBLE REPAIR Brown DO, Omi A 04/25/22 Unknown Shoulder R FDA Start: 04-25-2022 SHOULDER ARTHROS COPY W/ POSSIBLE REPAIR Brown DO, Omi A 04/25/22 Unknown Shoulder R FDA Start: 04-25-2022 SHOULDER ARTHROS COPY W/ POSSIBLE REPAIR Brown DO, Omi A 04/25/22 Unknown Shoulder R FDA Start: 04-25-2022 SHOULDER ARTHROS COPY W/ POSSIBLE REPAIR Brown DO, Omi A 04/25/22 Unknown Shoulder R FDA Start: 04-25-2022 SHOULDER ARTHROS COPY W/ POSSIBLE REPAIR Brown DO, Omi A 04/25/22 Unknown Shoulder R FDA Start: 04-25-2022 SHOULDER ARTHROS COPY W/ POSSIBLE REPAIR Brown DO, Omi A 04/25/22 Unknown Shoulder R FDA Start: 04-25-2022 SHOULDER ARTHROS COPY W/ POSSIBLE REPAIR Brown DO, Omi A 04/25/22 Unknown Shoulder R FDA Start: 04-25-2022 SHOULDER ARTHROS COPY W/ POSSIBLE REPAIR Brown DO, Omi A 04/25/22 Unknown Shoulder R FDA Start: 04-25-2022 SHOULDER ARTHROS COPY W/ POSSIBLE REPAIR Brown DO, Omi A 04/25/22 Unknown Shoulder R FDA Start: 04-25-2022 SHOULDER ARTHROS COPY W/ POSSIBLE REPAIR Brown DO, Omi A 04/25/22 Unknown Shoulder R FDA Start: 04-25-2022 SHOULDER ARTHROS COPY W/ POSSIBLE REPAIR Brown DO, Omi A 04/25/22 Unknown Shoulder R FDA Start: 04-25-2022 SHOULDER ARTHROS COPY W/ POSSIBLE REPAIR Brown DO, Omi A 04/25/22 Unknown Shoulder R FDA Start: 04-25-2022 1 each by Does n ot apply route 4 times daily (before meals and nightly) [id number] Start: 03-04-2022 SHOULDER ARTHROS COPY W/ POSSIBLE REPAIR Brown DO, Omi A 04/25/22 Unknown Shoulder R FDA Start: 04-25-2022 SHOULDER ARTHROS COPY W/ POSSIBLE REPAIR Brown DO, Omi A 04/25/22 Unknown Shoulder R FDA Start: 04-25-2022 SHOULDER ARTHROS COPY W/ POSSIBLE REPAIR Brown DO, Omi A 04/25/22 Unknown Shoulder R FDA Start: 04-25-2022 SHOULDER ARTHROS COPY W/ POSSIBLE REPAIR Brown DO, Omi A 04/25/22 Unknown Shoulder R FDA Start: 04-25-2022 SHOULDER ARTHROS COPY W/ POSSIBLE REPAIR Brown DO, Omi A 04/25/22 Unknown Shoulder R FDA Start: 04-25-2022 SHOULDER ARTHROS COPY W/ POSSIBLE REPAIR Brown DO, Omi A 04/25/22 Unknown Shoulder R FDA Start: 04-25-2022 SHOULDER ARTHROS COPY W/ POSSIBLE REPAIR Brown DO, Omi A 04/25/22 Unknown Shoulder R FDA Start: 04-25-2022 SHOULDER ARTHROS COPY W/ POSSIBLE REPAIR Brown DO, Omi A 04/25/22 Unknown Shoulder R FDA Start: 04-25-2022 SHOULDER ARTHROS COPY W/ POSSIBLE REPAIR Brown DO, Moi A 04/25/22 Unknown Shoulder R FDA Start: 04-25-2022 SHOULDER ARTHROS COPY W/ POSSIBLE REPAIR Brown DO, Omi A 04/25/22 Unknown Shoulder R FDA Start: 04-25-2022 SHOULDER ARTHROS COPY W/ POSSIBLE REPAIR Brown DO, Omi A 04/25/22 Unknown Shoulder R FDA Start: 04-25-2022 SHOULDER ARTHROS COPY W/ POSSIBLE REPAIR Brown DO, Omi A 04/25/22 Unknown Shoulder R FDA Start: 04-25-2022 SHOULDER ARTHROS COPY W/ POSSIBLE REPAIR Brown DO, Omi A 04/25/22 Unknown Shoulder R FDA Start: 04-25-2022 SHOULDER ARTHROS COPY W/ POSSIBLE REPAIR Brown DO, Omi A 04/25/22 Unknown Shoulder R FDA Start: 04-25-2022 SHOULDER ARTHROS COPY W/ POSSIBLE REPAIR Brown DO, Omi A 04/25/22 Unknown Shoulder R FDA Start: 04-25-2022 SHOULDER ARTHROS COPY W/ POSSIBLE REPAIR Brown DO, Omi A 04/25/22 Unknown Shoulder R FDA Start: 04-25-2022 SHOULDER ARTHROS COPY W/ POSSIBLE REPAIR Brown DO, Omi A 04/25/22 Unknown Shoulder R FDA Start: 04-25-2022 SHOULDER ARTHROS COPY W/ POSSIBLE REPAIR Brown DO, Omi A 04/25/22 Unknown Shoulder R FDA Start: 04-25-2022 SHOULDER ARTHROS COPY W/ POSSIBLE REPAIR Brown DO, Omi A 04/25/22 Unknown Shoulder R FDA Start: 04-25-2022 SHOULDER ARTHROS COPY W/ POSSIBLE REPAIR Brown DO, Omi A 04/25/22 Unknown Shoulder R FDA Start: 04-25-2022 SHOULDER ARTHROS COPY W/ POSSIBLE REPAIR Brown DO, Omi A 04/25/22 Unknown Shoulder R FDA Start: 04-25-2022 SHOULDER ARTHROS COPY W/ POSSIBLE REPAIR Roland DO, Omi A 04/25/22 Unknown Shoulder R FDA Start: 04-25-2022 SHOULDER ARTHROS COPY W/ POSSIBLE REPAIR Brown DO, Omi A 04/25/22 Unknown Shoulder R FDA Start: 04-25-2022 SHOULDER ARTHROS COPY W/ POSSIBLE REPAIR Brown DO, Omi A 04/25/22 Unknown Shoulder R FDA Start: 04-25-2022 1 each by Does n ot apply route 4 times daily (before meals and nightly) [id number] Start: 09-08-2022 SHOULDER ARTHROS COPY W/ POSSIBLE REPAIR Roland DO Omi A 04/25/22 Unknown Shoulder R FDA Start: 04-25-2022 SHOULDER ARTHROS COPY W/ POSSIBLE REPAIR Brown DO, Omi A 04/25/22 Unknown Shoulder R FDA Start: 04-25-2022 SHOULDER ARTHROS COPY W/ POSSIBLE REPAIR Brown DO, Omi A 04/25/22 Unknown Shoulder R FDA Start: 04-25-2022 SHOULDER ARTHROS COPY W/ POSSIBLE REPAIR Brown DO, Omi A 04/25/22 Unknown Shoulder R FDA Start: 04-25-2022 SHOULDER ARTHROS COPY W/ POSSIBLE REPAIR Brown DO, Omi A 04/25/22 Unknown Shoulder R FDA Start: 04-25-2022 SHOULDER ARTHROS COPY W/ POSSIBLE REPAIR Brown DO, Omi A 04/25/22 Unknown Shoulder R FDA Start: 04-25-2022 SHOULDER ARTHROS COPY W/ POSSIBLE REPAIR Brown DO, Omi A 04/25/22 Unknown Shoulder R FDA Start: 04-25-2022 SHOULDER ARTHROS COPY W/ POSSIBLE REPAIR Brown DO, Omi A 04/25/22 Unknown Shoulder R FDA Start: 04-25-2022 SHOULDER ARTHROS COPY W/ POSSIBLE REPAIR Brown DO, Omi A 04/25/22 Unknown Shoulder R FDA Start: 04-25-2022 SHOULDER ARTHROS COPY W/ POSSIBLE REPAIR Brown DO, Omi A 04/25/22 Unknown Shoulder R FDA Start: 04-25-2022 SHOULDER ARTHROS COPY W/ POSSIBLE REPAIR Brown DO, Omi A 04/25/22 Unknown Shoulder R FDA Start: 04-25-2022 SHOULDER ARTHROS COPY W/ POSSIBLE REPAIR Brown DO, Omi A 04/25/22 Unknown Shoulder R FDA Start: 04-25-2022 SHOULDER ARTHROS COPY W/ POSSIBLE REPAIR Brown DO, Omi A 04/25/22 Unknown Shoulder R FDA Start: 04-25-2022 SHOULDER ARTHROS COPY W/ POSSIBLE REPAIR Brown DO, Omi A 04/25/22 Unknown Shoulder R FDA Start: 04-25-2022 SHOULDER ARTHROS COPY W/ POSSIBLE REPAIR Brown DO, Omi A 04/25/22 Unknown Shoulder R FDA Start: 04-25-2022 SHOULDER ARTHROS COPY W/ POSSIBLE REPAIR Brown DO, Omi A 04/25/22 Unknown Shoulder R FDA Start: 04-25-2022 SHOULDER ARTHROS COPY W/ POSSIBLE REPAIR Brown DO, Omi A 04/25/22 Unknown Shoulder R FDA Start: 04-25-2022 SHOULDER ARTHROS COPY W/ POSSIBLE REPAIR Brown DO, Omi A 04/25/22 Unknown Shoulder R FDA Start: 04-25-2022 SHOULDER ARTHROS COPY W/ POSSIBLE REPAIR Brown DO, Omi A 04/25/22 Unknown Shoulder R FDA Start: 04-25-2022 SHOULDER ARTHROS COPY W/ POSSIBLE REPAIR Brown DO, Omi A 04/25/22 Unknown Shoulder R FDA Start: 04-25-2022 SHOULDER ARTHROS COPY W/ POSSIBLE REPAIR Brown DO, Omi A 04/25/22 Unknown Shoulder R FDA Start: 04-25-2022 SHOULDER ARTHROS COPY W/ POSSIBLE REPAIR Brown DO, Omi A 04/25/22 Unknown Shoulder R FDA Start: 04-25-2022 SHOULDER ARTHROS COPY W/ POSSIBLE REPAIR Brown DO, Omi A 04/25/22 Unknown Shoulder R FDA Start: 04-25-2022 SHOULDER ARTHROS COPY W/ POSSIBLE REPAIR Brown DO, Omi A 04/25/22 Unknown Shoulder R FDA Start: 04-25-2022 SHOULDER ARTHROS COPY W/ POSSIBLE REPAIR Brown DO, Omi A 04/25/22 Unknown Shoulder R FDA Start: 04-25-2022 SHOULDER ARTHROS COPY W/ POSSIBLE REPAIR Brown DO, Omi A 04/25/22 Unknown Shoulder R FDA Start: 04-25-2022 SHOULDER ARTHROS COPY W/ POSSIBLE REPAIR Brown DO, Omi A 04/25/22 Unknown Shoulder R FDA Start: 04-25-2022 SHOULDER ARTHROS COPY W/ POSSIBLE REPAIR Brown DO, Omi A 04/25/22 Unknown Shoulder R FDA Start: 04-25-2022 SHOULDER ARTHROS COPY W/ POSSIBLE REPAIR Brown DO, Omi A 04/25/22 Unknown Shoulder R FDA Start: 04-25-2022 SHOULDER ARTHROS COPY W/ POSSIBLE REPAIR Brown DO, Omi A 04/25/22 Unknown Shoulder R FDA Start: 04-25-2022 SHOULDER ARTHROS COPY W/ POSSIBLE REPAIR Brown DO, Omi A 04/25/22 Unknown Shoulder R FDA Start: 04-25-2022 SHOULDER ARTHROS COPY W/ POSSIBLE REPAIR Brown DO, Omi A 04/25/22 Unknown Shoulder R FDA Start: 04-25-2022 SHOULDER ARTHROS COPY W/ POSSIBLE REPAIR Brown DO, Omi A 04/25/22 Unknown Shoulder R FDA Start: 04-25-2022 SHOULDER ARTHROS COPY W/ POSSIBLE REPAIR Brown DO, Omi A 04/25/22 Unknown Shoulder R FDA Start: 04-25-2022 SHOULDER ARTHROS COPY W/ POSSIBLE REPAIR Brown DO, Omi A 04/25/22 Unknown Shoulder R FDA Start: 04-25-2022 SHOULDER ARTHROS COPY W/ POSSIBLE REPAIR Brown DO, Omi A 04/25/22 Unknown Shoulder R FDA Start: 04-25-2022 SHOULDER ARTHROS COPY W/ POSSIBLE REPAIR Brown DO, Omi A 04/25/22 Unknown Shoulder R FDA Start: 04-25-2022 SHOULDER ARTHROS COPY W/ POSSIBLE REPAIR Brown DO, Omi A 04/25/22 Unknown Shoulder R FDA Start: 04-25-2022 SHOULDER ARTHROS COPY W/ POSSIBLE REPAIR Omi Watkins DO 04/25/22 Unknown Shoulder R FDA Start: 04-25-2022 SHOULDER ARTHROS COPY W/ POSSIBLE REPAIR Omi Watkins DO A 04/25/22 Unknown Shoulder R FDA Start: 04-25-2022 SHOULDER ARTHROS COPY W/ POSSIBLE REPAIR Omi Watkins DO A 04/25/22 Unknown Shoulder R FDA Start: 04-25-2022 SHOULDER ARTHROS COPY W/ POSSIBLE REPAIR Omi Watkins DO 04/25/22 Unknown Shoulder R FDA Start: 04-25-2022 Screw Spnl L15mm Dia3.5mm Ant Cerv Ti Self Drl Aisha Ang - [id number] Start: 06-30-2023 1 each by Does n ot apply route 4 times daily (before meals and nightly) [id number] Start: 03-09-2023 SHOULDER ARTHROS COPY W/ POSSIBLE REPAIR Omi Watkins DO 04/25/22 Unknown Shoulder R FDA Start: 04-25-2022 SHOULDER ARTHROS COPY W/ POSSIBLE REPAIR Omi Watkins DO 04/25/22 Unknown Shoulder R FDA Start: 04-25-2022 SHOULDER ARTHROS COPY W/ POSSIBLE REPAIR Omi Watkins DO 04/25/22 Unknown Shoulder R FDA Start: 04-25-2022 SHOULDER ARTHROS COPY W/ POSSIBLE REPAIR Omi Watkins DO 04/25/22 Unknown Shoulder R FDA Start: 04-25-2022 SHOULDER ARTHROS COPY W/ POSSIBLE REPAIR Omi Watkins DO 04/25/22 Unknown Shoulder R FDA Start: 04-25-2022 SHOULDER ARTHROS COPY W/ POSSIBLE REPAIR Omi Watkins DO 04/25/22 Unknown Shoulder R FDA Start: 04-25-2022 Goals Date Patient Goal Desired Activity /State Personal health goal Comment on above: Formatting of this n ote might be different from the original. Pt plans on walking more often Comment on above: Pt plans on walking more often Formatting of this n ote might be different from the original. Pt plans on walking more often Functional Status Date Assessment Result Facility 07-11-2023 Functional Status N/A [facility] 06-06-2023 Functional Status N/A [facility] 04-03-2023 Functional status Patient at Baseline [facility] Work Phone: 02-01-2023 Functional status Patient at Baseline [facility] Work Phone: 01-26-2023 Functional Status N/A [facility] 01-22-2023 Functional status Patient at Baseline [facility] Work Phone: 01-03-2023 Functional status Patient at Baseline [facility] Work Phone: 12-17-2022 Functional status Patient at Baseline [facility] Work Phone: 12-10-2022 Functional status Patient at Baseline [facility] Work Phone: 11-02-2022 Functional Status N/A [facility] 10-27-2022 Functional Status N/A [facility] 10-19-2022 Functional Status N/A [facility] 10-09-2022 Functional Status N/A [facility] 09-21-2022 Functional Status N/A [facility] 09-08-2022 Functional Status N/A [facility] 08-18-2022 Functional Status N/A [facility] 08-08-2022 Functional Status N/A [facility] 07-17-2022 Functional Status N/A [facility] 06-18-2022 Functional Status N/A [facility] 05-11-2022 Functional Status N/A [facility] 04-21-2022 Functional Status N/A [facility] 04-15-2022 Functional Status No [facility] 03-08-2022 Functional Status N/A [facility] NEGATED: Highlighted row Functional performance Functional status health issues are not documented Disease [facility] Work Phone: Mental Status Date Assessment Result Facility 04-03-2023 Cognitive function Cognitive Sta tus Patient is Progressing Toward Baseline [facility] Work Phone: 02-01-2023 Cognitive function Patient at Baseline [facility] Work Phone: 01-22-2023 Cognitive function Patient at Baseline [facility] Work Phone: 01-03-2023 Cognitive function Patient at Baseline [facility] Work Phone: 12-17-2022 Cognitive function Patient at Baseline [facility] Work Phone: 12-10-2022 Cognitive function Patient at Baseline [facility] Work Phone: NEGATED: Highlighted row Cognitive function [Interpretation] Cognitive status health issues are not documented Disease [facility] Work Phone: Clinical Notes 10-16-2014 to 07-12-2023 Note Date & Type Note Facility 07-12-2023 Hospital Discharg e instructions Patient Education 07/12/2023 04:05:01 Seroma Seroma A seroma is a collection of fluid on the body that looks like swelling or a mass. Seromas form where tissue has been injured or cut. Seromas vary in size. Some are small and painless. Others may grow large and cause pain or discomfort. Many seromas go away on their own as the fluid is naturally absorbed by the body, and some seromas need to be drained. What are the causes? Seromas form because tissue has been damaged or removed. This tissue damage may happen during surgery or because of an injury or trauma. When tissue is damaged or removed, empty space is created. The body's defense system (immune system) causes fluid to enter the empty space and form a seroma. What are the signs or symptoms? Symptoms of this condition include: Swelling at the site of a surgical incision or an injury. Drainage of clear fluid at the surgery or injury site. Discomfort or pain. How is this diagnosed? This condition is diagnosed based on: Your symptoms. Your medical history. A physical exam. During the exam, your health care provider will press on the seroma. You may also have tests, such as: Blood tests. An ultrasound, a CT scan, or other imaging tests. How is this treated? Some seromas go away on their own. Your health care provider may watch the seroma to make sure it does not cause any problems. Seromas that do not go away on their own may be treated. Treatment may include: Using a needle to drain the fluid from the seroma (needle aspiration). Putting in a small, thin tube (catheter) to drain the fluid. Putting on a bandage (dressing), such as an elastic bandage or binder. Taking antibiotics, if the seroma gets infected. In rare cases, surgery may be done to remove the seroma and repair the area. Follow these instructions at home: If you were prescribed antibiotics, take them as told by your health care provider. Do not stop using the antibiotic even if you start to feel better. Take hqkd-qow-ytgnnyt and prescription medicines only as told by your health care provider. Return to your normal activities as told by your health care provider. Ask your health care provider what activities are safe for you. Check your seroma every day for signs of infection. Check for: ?Redness or pain. ?More swelling. ?More fluid. ?Warmth. ?Pus or a bad smell. Keep all follow-up visits. Your health care provider needs to check that your seroma is healing. Contact a health care provider if: You have a fever. You have redness or pain at the site of your seroma. Your seroma is more swollen or is getting bigger. You have more fluid coming from your seroma. Your seroma feels warm to the touch. You have pus or a bad smell coming from your seroma. Get help right away if: You have a fever along with severe pain, redness at the site, or chills. You feel confused or have trouble staying awake. You feel like your heart is beating very fast. You feel short of breath or are breathing fast. You have cool, clammy, or sweaty skin. Summary Seromas can form because of injury or surgery on tissue. Seromas can cause swelling, drainage of clear fluid, and discomfort or pain at the surgery or injury site. Some seromas go away on their own. Other seromas may need to be drained. Check your seroma every day for signs of infection. Signs include redness, pain, more swelling, more fluid, warmth, pus, or a bad smell. This information is not intended to replace advice given to you by your health care provider. Make sure you discuss any questions you have with your health care provider. Document Revised: 09/01/2022 Document Reviewed: 09/01/2022 [employer] Patient Education 2022 [email or web address] 07/12/2023 04:05:01 Nausea and Vomiting, Adult, Wyaj-ha-Lmyt Nausea and Vomiting, Adult Nausea is feeling that you have an upset stomach and that you are about to vomit. Vomiting is when food in your stomach forcefully comes out of your mouth. Vomiting can make you feel weak. If you vomit, or if you are not able to drink enough fluids, you may not have enough water in your body (get dehydrated). If you do not have enough water in your body, you may: Feel tired. Feel thirsty. Have a dry mouth. Have cracked lips. Pee (urinate) less often. Older adults and people with other diseases or a weak body defense system (immune system) are at higher risk for not having enough water in the body. If you feel like you may vomit or you vomit, it is important to follow instructions from your doctor about how to take care of yourself. Follow these instructions at home: Watch your symptoms for any changes. Tell your doctor about them. Eating and drinking Take an ORS (oral rehydration solution). This is a drink that is sold at pharmacies and stores. Drink clear fluids in small amounts as you are able, such as: ?Water. ?Ice chips. ?Fruit juice that has water added (diluted fruit juice). ?Low-calorie sports drinks. Eat bland, omap-jf-zdccfw foods in small amounts as you are able, such as: ?Bananas. ?Applesauce. ?Rice. ?Low-fat (lean) meats. ?[place]. ?Crackers. Avoid drinking fluids that have a lot of sugar or caffeine in them. This includes energy drinks, sports drinks, and soda. Avoid alcohol. Avoid spicy or fatty foods. General instructions Take jddv-okc-squnjkq and prescription medicines only as told by your doctor. Drink enough fluid to keep your pee (urine) pale yellow. Wash your hands often with soap and water for at least 20 seconds. If you cannot use soap and water, use hand manufacturer's representative. Make sure that everyone in your home washes their hands well and often. Rest at home until you feel better. Watch your condition for any changes. Take slow and deep breaths when you feel like you may vomit. Keep all follow-up visits. Contact a doctor if: Your symptoms get worse. You have new symptoms. You have a fever. You cannot drink fluids without vomiting. You feel like you may vomit for more than 2 days. You feel light-headed or dizzy. You have a headache. You have muscle cramps. You have a rash. You have pain while peeing. Get help right away if: You have pain in your chest, neck, arm, or jaw. You feel very weak or you faint. You vomit again and again. You have vomit that is bright red or looks like black coffee grounds. You have bloody or black poop (stools) or poop that looks like tar. You have a very bad headache, a stiff neck, or both. You have very bad pain, cramping, or bloating in your belly (abdomen). You have trouble breathing. You are breathing very quickly. Your heart is beating very quickly. Your skin feels cold and clammy. You feel confused. You have signs of losing too much water in your body, such as: ?Dark pee, very little pee, or no pee. ?Cracked lips. ?Dry mouth. ?Sunken eyes. ?Sleepiness. ?Weakness. These symptoms may be an emergency. Get help right away. Call 911. Do not wait to see if the symptoms will go away. Do not drive yourself to the hospital. Summary Nausea is feeling that you have an upset stomach and that you are about to vomit. Vomiting is when food in your stomach comes out of your mouth. Follow instructions from your doctor about eating and drinking. Take odmr-ift-atgtjnc and prescription medicines only as told by your doctor. Contact your doctor if your symptoms get worse or you have new symptoms. Keep all follow-up visits. This information is not intended to replace advice given to you by your health care provider. Make sure you discuss any questions you have with your health care provider. Document Revised: 12/20/2021 Document Reviewed: 12/20/2021 [employer] Patient Education 2022 [email or web address] 07/12/2023 04:05:01 Flank Pain, Adult, Jqha-ht-Pblc Flank Pain, Adult Flank pain is pain in your side. The flank is the area on your side between your upper belly (abdomen) and your spine. The pain may occur over a short time (acute), or it may be long-term or come back often (chronic). It may be mild or very bad. Pain in this area can be caused by many different things. Follow these instructions at home: Drink enough fluid to keep your pee (urine) pale yellow. Rest as told by your doctor. Take crpr-fmq-vglccnk and prescription medicines only as told by your doctor. Keep a journal to keep track of: ?What has caused your flank pain. ?What has made your flank pain feel better. Keep all follow-up visits. Contact a doctor if: Medicine does not help your pain. You have new symptoms. Your pain gets worse. Your symptoms last longer than 2 3 days. You have trouble peeing. You are peeing more often than normal. Get help right away if: You have trouble breathing. You are short of breath. Your belly hurts, or it is swollen or red. You feel like you may vomit (nauseous). You vomit. You feel faint, or you faint. You have blood in your pee. You have flank pain and a fever. These symptoms may be an emergency. Get help right away. Call your local emergency services (911 in the [place] Do not wait to see if the symptoms will go away. Do not drive yourself to the hospital. Summary Flank pain is pain in your side. The flank is the area of your side between your upper belly (abdomen) and your spine. Flank pain may occur over a short time (acute), or it may be long-term or come back often (chronic). It may be mild or very bad. Pain in this area can be caused by many different things. Contact your doctor if your symptoms get worse or last longer than 2 3 days. This information is not intended to replace advice given to you by your health care provider. Make sure you discuss any questions you have with your health care provider. Document Revised: 08/26/2021 Document Reviewed: 08/26/2021 [employer] Patient Education 2022 [email or web address]. Follow Up Care 07/11/2023 21:05:43 With:SKYE JONES Address: [address] [place] [address] [address] [place] [address]- [phone] Business (1) When:07/15/2023 Comments:You can use the Bentyl, Zofran as prescribed as needed for pain and nausea and vomiting. Please follow-up with your surgeon for further evaluation and management. Please return to the ED for any new or worsening symptoms. [facility] 07-11-2023 Evaluation + Plan note Extrac suzanne from: Title:ED Note Author:Sybil Muhammad DO Date :07/11/23 Flank pain (R10.9: Unspecifi ed abdominal pain) Nausea and vomiting (R11.2: Nausea with vomiting, unspecified) Postoperative seroma of skin after non-dermatologic procedure (L76.34: Postprocedural seroma of skin and subcutaneous tissue following other procedure) Orders: dicyclomine, 10 mg = 1 cap(s), Oral, QID, X 7 day(s), # 14 cap(s), Refills(s) 0, Pharmacy: [id number], 170, cm, 07/11/23 21:19:00 EST, Height/Length Dosing, 128, kg, 07/11/23 21:19:00 EST, Weight Dosing HYDROmorphone, 0.5 mg = 0.5 mL, Injection, IV Push, Once, Stop date 07/11/23 22:33:00 EST, STAT, Start date 07/11/23 22:33:00 EST, 07/11/23 22:33:00 EST insulin regular, 10 unit(s) = 0.1 mL, Injection-Insulin, SubCutaneous, Once, Stop date 07/11/23 23:06:00 EST, STAT, Start date 07/11/23 23:06:00 EST metoclopramide, 10 mg = 2 mL, Injection, IV Push, Once, Stop date 07/11/23 21:50:00 EST, STAT, Start date 07/11/23 21:50:00 EST, 07/11/23 21:50:00 EST ondansetron, 4 mg = 1 tab(s), Oral, q8hr, # 12 tab(s), Refills(s) 0, Pharmacy: [facility], 170, cm, 07/11/23 21:19:00 EST, Height/Length Dosing, 128, kg, 07/11/23 21:19:00 EST, Weight Dosing Sodium Chloride 0.9% intravenous solution, 1,000 mL, Soln-IV, IV, Once, Stop date 07/11/23 21:50:00 EST, STAT, Start date 07/11/23 21:50:00 EST, Infuse over 61, minute(s) Automated Diff Basic Metabolic Panel Capillary Glucose POC Capillary Glucose POC CBC w/ Auto Diff CT Abdomen/Pelvis w/o Contrast CT Soft Tissue Neck w/ Contrast eGFR Hepatic Function Panel Lipase Level UA With Cult Reflex [facility]01-11-2024 Hospital Discharge instructions* Discharge Instr - Activity* Adelita Pak RN - 07/09/2023 10:53 AM EST As tolerated * Discharge Instr - Diet* Adelita Pak RN - 07/09/2023 10:53 AM EST Good nutrition is important when healing from an illness, injury, or surgery. Follow any nutrition recommendations given to you during your hospital stay. If you were given an oral nutrition supplement while in the hospital, continue to take this supplement at home. You can take it with meals, in-between meals, and/or before bedtime. These supplements can be purchased at most local grocery stores, pharmacies, and chain super-stores. If you have any questions about your diet or nutrition, call the hospital and ask for the dietitian. Carb control diabetic diet * Attachments The following attachments cannot be sent through Care Everywhere. * acetaminophen and oxycodone (Wallisian) [facility] History of Present illness Narrative* Ruben Abdi MD - 07/09/2023 10:12 AM EST Patient is doing better. She was transferred here due to CT at [facility] which reportedly describes seroma versus hematoma. She tells me she has had improvement in her bilateral arm pain since surgery. About a week ago she noticed swallowing difficulties as well as occasional difficulty breathing.She also is having quite a bit of pain in her left shoulder. She has had improvement overall since being here and is planned for discharge to home. She tells me pain management injected her left shoulder this morning. She has had some swallowing difficulties but is swallowing solid food and liquidsand has been ambulating. She is awake and alert and breathing easily Motor is 5 out of 5 except for difficulty moving left shoulder secondary to pain Sensation grossly intact to light touch DTRs 2+ throughout Incision is clean dry and intact and soft without any evidence of significant swelling Cervical x-rays reveal adequate anterior hardware from C5-C7. MRI of cervical spine reveals postoperative changes with no significant hematoma, the foraminal stenosis from C5-C7 appears slightly improved compared to preop. Assessment and plan: Status post C5-7 ACDF 9 days ago, she has been having pain mostly involving left shoulder which has improved since being hospitalized. Her wound is well healed and there is no clinical or radiographic evidence of any significant hematoma. She may be having shoulder pathology such as bursitis and has had injection of left shoulder by pain management. She is ambulating and tolerating p.o. and will be discharged to home. She will follow-up as planned as outpatient. All of her questions were answered. Ruben Abdi MD * Georgiana Hendrickson, OT - 07/08/2023 4:04 PM EST [facility] OCCUPATIONAL THERAPY EVALUATION - ACUTE NAME: Gisel Carlton : 1975 (48 y.o.) CODE STATUS: Prior Room: [facility]/66- Date of Service: 07/08/2023 Patient Diagnosis(es): Postoperative hematoma of musculoskeletal structure following musculoskeletal procedure [M96.840] Patient Active Problem List Diagnosis Date Noted Postoperative hematoma of musculoskeletal structure following musculoskeletal procedure 07/08/2023 Acute bursitis of left shoulder 07/08/2023 Post-operative pain 07/08/2023 Cervical spinal stenosis 06/30/2023 Cervical stenosis of spine 06/17/2023 COVID-19 05/28/2020 Postviral syndrome 05/28/2020 Anterior chest wall pain due to excessive coughing, and patient was COVID-19 positive, symptomatic.05/12/2020 Anterior pleuritic pain in patient with COVID-19 05/12/2020 Costochondritis, acute 05/12/2020 Acute exacerbation of chronic generalized pain associated with significant psychosocial [id number]/14/2020 Fatigue due to exposure 05/12/2020 COVID-19 virus infection 05/05/2020 Acute exacerbation of Chronic right flank pain 04/19/2019 Generalized muscle ache 04/19/2019 Recurrent sinusitis 03/07/2019 Acquired absence of other specified parts of digestive tract 09/18/2018 jail (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 of insulin ([facility]) 09/18/2018 Pure hypercholesterolemia, unspecified 09/18/2018 Umbilical hernia without obstruction and without gangrene 02/08/2018 Opiate use 12/30/2017 Diabetic polyneuropathy (HCC) 03/11/2017 Chronic abdominal pain 03/11/2017 Chronic lower back pain 03/11/2017 Torticollis 11/27/2014 Flank pain 10/19/2014 Tubular adenoma 10/04/2014 Recurrent kidney stones 04/24/2014 Hypertension 11/24/2013 Chest pain 11/21/2012 Steatosis of liver 11/21/2012 Class 3 severe obesity due to excess calories with serious comorbidity and body mass index (BMI) of40.0 to 44.9 in adult ([facility]) 11/21/2012 Headache 04/24/2011 Diabetes mellitus, type II, insulin dependent (HCC) 04/24/2011 Hyperlipidemia 04/24/2011 GERD (gastroesophageal reflux disease) 04/24/2011 Acute hyperglycemia 04/24/2011 Past Medical History: Diagnosis Date Allergic rhinitis Dizziness Fatigue GERD (gastroesophageal reflux disease) Headache(784.0) Hematuria Hyperlipidemia Kidney stones Pap smear for cervical cancer screening 10/07 vag cuff Recurrent UTI Type A blood, Rh positive Type II or unspecified type diabetes mellitus without mention of complication, not stated as uncontrolled Past Surgical History: Procedure Laterality Date CARPAL TUNNEL RELEASE 2005 B/L CERVICAL FUSION N/A 06/30/2023 C5-6, C6-7 ACDF (ANTERIOR CERVICAL DISKECTOMY FUSION) using interbody cages, local morselized autograft, morselized allograft and plate and screws [place] [facility] [place] CHOLE[place] 2000 HYSTERECTOMY (CERVIX STATUS UNKNOWN) dr. riley LEG SURGERY Right for fracture repair LITHOTRIPSY SC RPR UMBILICAL HERNIA < 5 YRS REDUCIBLE N/A 02/12/2018 REPAIR UMBILICAL HERNIA performed [place] Marguerite Beckman [place] [facility] [place] ROTATOR CUFF REPAIR Right TONSILLECTOMY UPPER GASTROINTESTINAL ENDOSCOPY 02/17/2017 Judi JONES JR DO URETER STENT PLACEMENT 3 Restrictions Restrictions/Precautions: Up as Tolerated Safety Devices: Safety Devices Type of Devices: Call light within reach;Left in bed Patient's date of confirmed: Yes General: Patient assessed for rehabilitation services?: Yes Subjective Pain at start of treatment: Yes: 04/07 Pain at end of treatment: Yes: 04/07 Location: [facility] [place] Nursing notified: Declined - nurse aware RN: Vivek Intervention: Repositioned Prior Level of Function: Social/Functional History Lives With: Parent (mom, Dad and son (22)) Home Layout: Two level, Able to Live on Main level with bedroom/bathroom Bathroom Shower/Tub: Walk-in shower, Shower chair with back Bathroom Equipment: Grab bars in shower, Hand-held shower Home Equipment: Cane, Walker, rolling, Grab bars, Software Computer Specialist ADL Assistance: Independent Homemaking Assistance: Independent Ambulation Assistance: Independent Transfer Assistance: Independent IADL Comments: IND prior to admission OBJECTIVE: Orientation Status: Orientation Overall Orientation Status: Within Functional Limits Observation: Observation/Palpation Posture: Good Observation: pt appears in pain. reports just receiving injection. hand off from PT providing exercises for home going. Cognition Status: Cognition Overall Cognitive Status: WFL Perception Status: Perception Overall Perceptual Status: WF Vision and Hearing Status: Hearing Hearing: Within functional limits GROSS ASSESSMENT AROM/PROM: AROM: Generally decreased, functional ROM: LUE AROM (degrees) LUE General AROM: NT d/t pain Left Hand AROM (degrees) Left Hand AROM: WFL RUE AROM (degrees) RUE General AROM: approx 120 degrees shoulder flexion Right Hand AROM (degrees) Right Hand AROM: WFL UE STRENGTH: Strength: Generally decreased, functional UE COORDINATION: Coordination: Within functional limits UE TONE: Tone: Normal UE SENSATION: Sensation: (occasional numbness/tingling to B hands) Hand Dominance: Hand Dominance Hand Dominance: Right ADL Status: ADL Feeding: Independent Grooming: Independent UE Bathing: Modified independent LE Bathing: Modified independent UE Dressing: Modified independent LE Dressing: Modified independent Toileting: Modified independent Additional Comments: ADLs simulated/anticipated as above stated. Pt demos use of compensatory techniques to limit movement of LUE d/t pain and recent injection Toilet Transfers Toilet Transfer: Unable to assess Toilet Transfers Comments: anticipate IND Functional Mobility: Transfers Transfer Comments: NT per PT, pt IND Patient 's ambulation NT due to pt declining d/t pain and fatigue Bed Mobility Bed mobility Rolling to Left: Independent Rolling to Right: Independent Supine to Sit: Independent Sit to Supine: Independent Seated and Standing Balance: WFL Functional Endurance: Activity Tolerance Activity Tolerance: Patient limited by pain D/C Recommendations: OT D/C RECOMMENDATIONS REQUIRES OT FOLLOW-UP: No Equipment Recommendations: OT Equipment Recommendations Equipment Needed: (TBD) Other: continue to assess OT Education: Patient Education Education Given To: Patient Education Provided: Role of Therapy;Plan of Care Education Method: Verbal Barriers to Learning: None Education Outcome: Verbalized understanding OT Follow Up: OT D/C RECOMMENDATIONS REQUIRES OT FOLLOW-UP: No Assessment/Discharge Disposition: Assessment: Pt is a 48yo female presenting with the above stated deficits of LUE impacting ability to complete ADLs/iADLs in normal manner. Pt demos ability to compensate for pain and limited use of LUE, reports pain being biggest deficit. Performance deficits / Impairments: Decreased ADL status, Decreased ROM, Decreased high-level IADLs Prognosis: Good Discharge Recommendations: Continue to assess pending progress Decision Making: Low Complexity History: med Exam: 3 deficits Assistance / Modification: mod I AMPA (Six Click) Self care Score How much help is needed for putting on and taking off regular lower body clothing?: None How much help is needed for bathing (which includes washing, rinsing, drying)?: None How much help is needed for toileting (which includes using toilet, bedpan, or urinal)?: None How much help is needed for putting on and taking off regular upper body clothing?: None How much help is needed for taking care of personal grooming?: None How much help for eating meals?: None [facility] Inpatient Daily Activity Raw Score: 24 AM-[facility] Inpatient ADL T-Scale Score : 57.54 ADL Inpatient CMS 0-100% Score: 0 Therapy baez for assistance levels - Independent/Mod I = Pt. is able to perform task with no assistance but may require a device Stand by assistance = Pt. does not perform task at an independent level but does not need physical assistance, requires verbal cues Minimal, Moderate, Maximal Assistance = Pt. requires physical assistance (25%, 50%, 75% assist fromhelper) for task but is able to actively participate in task Dependent = Pt. requires total assistance with task and is not able to actively participate with task completion Plan: Occupational Therapy Plan Times Per Week: no acute OT Goals: Patient will: Patient Goal: Patient goals : improve pain Discussed and agreed upon: Yes Comments: Therapy Time: Individual Time In 1540 Time Out 1555 Minutes 15 Eval: 15 minutes Electronically signed by: Georgiana Hendrickson OT, 07/08/2023, 4:10 PM * Steven Hi, PT - 07/08/2023 2:55 PM EST Physical Therapy Med Surg Initial Assessment Facility/Department: [address] TELEMETRY Room: [place] [id number] NAME: Gisel Carlton : 1975 (48 y.o.) CODE STATUS: Prior Date of Service: 07/08/2023 Patient Diagnosis(es): Postoperative hematoma of musculoskeletal structure following musculoskeletal procedure [M96.840] No chief complaint on file. Patient Active Problem List Diagnosis Date Noted Postoperative hematoma of musculoskeletal structure following musculoskeletal procedure 07/08/2023 Acute bursitis of left shoulder 07/08/2023 Post-operative pain 07/08/2023 Cervical spinal stenosis 06/30/2023 Cervical stenosis of spine 06/17/2023 COVID-19 05/28/2020 Postviral syndrome 05/28/2020 Anterior chest wall pain due to excessive coughing, and patient was COVID-19 positive, symptomatic.05/12/2020 Anterior pleuritic pain in patient with COVID-19 05/12/2020 Costochondritis, acute 05/12/2020 Acute exacerbation of chronic generalized pain associated with significant psychosocial [id number]/14/2020 Fatigue due to exposure 05/12/2020 COVID-19 virus infection 05/05/2020 Acute exacerbation of Chronic right flank pain 04/19/2019 Generalized muscle ache 04/19/2019 Recurrent sinusitis 03/07/2019 Acquired absence of other specified parts of digestive tract 09/18/2018 jail (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 of insulin ([facility]) 09/18/2018 Pure hypercholesterolemia, unspecified 09/18/2018 Umbilical hernia without obstruction and without gangrene 02/08/2018 Opiate use 12/30/2017 Diabetic polyneuropathy ([facility]) 03/11/2017 Chronic abdominal pain 03/11/2017 Chronic lower back pain 03/11/2017 Torticollis 11/27/2014 Flank pain 10/19/2014 Tubular adenoma 10/04/2014 Recurrent kidney stones 04/24/2014 Hypertension 11/24/2013 Chest pain 11/21/2012 Steatosis of liver 11/21/2012 Class 3 severe obesity due to excess calories with serious comorbidity and body mass index (BMI) of40.0 to 44.9 in adult ([facility]) 11/21/2012 Headache 04/24/2011 Diabetes mellitus, type II, insulin dependent ([facility]) 04/24/2011 Hyperlipidemia 04/24/2011 GERD (gastroesophageal reflux disease) 04/24/2011 Acute hyperglycemia 04/24/2011 Past Medical History: Diagnosis Date Allergic rhinitis Dizziness Fatigue GERD (gastroesophageal reflux disease) Headache(784.0) Hematuria Hyperlipidemia Kidney stones Pap smear for cervical cancer screening 10/07 vag cuff Recurrent UTI Type A blood, Rh positive Type II or unspecified type diabetes mellitus without mention of complication, not stated as uncontrolled Past Surgical History: Procedure Laterality Date CARPAL TUNNEL RELEASE 2005 B/L CERVICAL FUSION N/A 06/30/2023 C5-6, C6-7 ACDF (ANTERIOR CERVICAL DISKECTOMY FUSION) using interbody cages, local morselized autograft, morselized allograft and plate and screws [place] Ruben Ab[place] [facility] [place] CHOLE[place] 2000 HYSTERECTOMY (CERVIX STATUS UNKNOWN) dr. riley LEG SURGERY Right for fracture repair LITHOTRIPSY SC RPR UMBILICAL HERNIA < 5 YRS REDUCIBLE N/A 02/12/2018 REPAIR UMBILICAL HERNIA performed [place] Marguerite Beckman [place] [facility] [place] ROTATOR CUFF REPAIR Right TONSILLECTOMY UPPER GASTROINTESTINAL ENDOSCOPY 02/17/2017 Judi JONES JR DO URETER STENT PLACEMENT 3 Chart Reviewed: Yes Family / Caregiver Present: No Restrictions: Restrictions/Precautions: Up as Tolerated SUBJECTIVE: Pain Pain: 9/10 pain in left shoulder, neck(ant and post) before and after session. Pain management MD in for evaluation with plan for injection Prior Level of Function: Social/Functional History Lives With: Parent Home Layout: Two level, Able to Live on Main level with bedroom/bathroom Home Equipment: Cane, Walker, rolling ADL Assistance: Independent Homemaking Assistance: Independent Ambulation Assistance: Independent Transfer Assistance: Independent OBJECTIVE: Vision Vision: Within Functional Limits Hearing: Within functional limits Cognition: Overall Orientation Status: Within Functional Limits Follows Commands: Within Functional Limits Observation/Palpation Observation: Pt observed with neck held flexed to the right ROM: RLE PROM: WFL LLE PROM: WFL RUE PROM: WFL LUE General PROM: shoulder flexion limited to 120 degrees Spine Cervical: pt able to attain neutral position but unable to rotate to the left or sidebend to left with any appreciable degree Strength: Strength RLE Strength RLE: WFL Strength LLE Strength LLE: WFL Strength RUE Strength RUE: WFL Strength LUE Comment: significant deficit in left shoulder active function noted Neuro: Balance Posture: Fair (neck held to right) Sitting - Static: Good Sitting - Dynamic: Good Standing - Static: Good Standing - Dynamic: Good;- Bed mobility Rolling to Left: Independent Rolling to Right: Independent Supine to Sit: Independent Sit to Supine: Independent (pt attains supine by facing forward to climb into bed) Transfers Sit to Stand: Independent Stand to Sit: Independent Comment: multiple trials. mild increased sway with pt able to manage balance without assistance Ambulation Surface: Level tile Device: No Device Assistance: Independent Quality of Gait: mild sway to left with delayed reactions - no assistance for correction required, poor ability to scan to the left due to neck ROM limitation, slow but appropriate pace, decreased arm swing Distance: 50 ft; 40 ft Stairs/Curb Stairs?: No (pt and therapist feel pt will be able to perform stairs with no assistance with the use of rail. No trial performed due to pt pain level) PT Exercises Exercise Treatment: Pt instructed in AAROM ex for right shouldeer flexion and horizontal abduction as well as gentle cervical ROM in all planes. Pt demonstrated indep performance Activity Tolerance Activity Tolerance: Patient tolerated evaluation without incident Patient Education Education Given To: Patient Education Provided: Role of Therapy;Plan of Care;Home Exercise Program Education Method: Verbal;Demonstration Education Outcome: Verbalized understanding;Demonstrated understanding ASSESSMENT: Decision Making: Low Complexity History: med Exam: med Clinical Presentation: low Barriers to Learning: none DISCHARGE RECOMMENDATIONS: Discharge Recommendations: Outpatient PT Assessment: Pt demonstrates ability to perform mobility tasks without assistance. She is mildly unsteady and has gait deviation related to neck pain. Pt has no further PT needs at this level of care.Pt would benefit from OP PT to work towards impovement in neck ROM, reduce pain and normalize mobility Requires PT Follow-Up: No Safety Devices Type of Devices: Call light within reach, Left in bed AMPAC (6 CLICK) BASIC MOBILITY AM-[facility] Inpatient Mobility Raw Score : 24 Therapy Time: Individual Time In 1525 Time Out 1545 Minutes 20 Therapy Time Individual Time In 1525 Time Out 1545 Minutes 20 Eval: 20 min Ex: 20 min Steven Hi PT, 07/08/23 at 3:46 PM Definitions for assistance levels Independent = pt does not require any physical supervision or assistance from another person for activity completion. Device may be needed. Stand by assistance = pt requires verbal cues or instructions from another person, close to but nottouching, to perform the activity Minimal assistance= pt performs 75% or more of the activity; assistance is required to complete theactivity Moderate assistance= pt performs 50% of the activity; assistance is required to complete the activity Maximal assistance = pt performs 25% of the activity; assistance is required to complete the activity Dependent = pt requires total physical assistance to accomplish the task [facility] course Narrative* Yoly Bro MD - 07/09/2023 6:38 AM EST Images from the original note were not included. Discharge Summary Date:07/09/2023 Patient Name:Gisel Carlton Date of :1975 Age:48 y.o. Admit Date:07/08/2023 Admission Condition:fair Discharged Condition:good Discharge Date: 07/09/23 Discharge Diagnoses Principal Problem: Postoperative hematoma of musculoskeletal structure following musculoskeletal procedure Active Problems: Diabetes mellitus, type II, insulin dependent (HCC) Class 3 severe obesity due to excess calories with serious comorbidity and body mass index (BMI) of40.0 to 44.9 in adult (HCC) Acute bursitis of left shoulder Post-operative pain Resolved Problems: * No resolved hospital problems. * Improved left shoulder bursitis. Pain control improved Hospital Stay Narrative of Hospital Course: Patient admitted on transfer from [facility] for uncontrolled postoperative discomfort and pain. CT scan [facility] report images not available. Reported to show a seroma. MRI x-rays cervical spine show healing and surgical site construct is in perfect position. Excellent postoperative studies. Patient not a candidate for consideration of any further surgery at this time. Consultants: IP CONSULT TO HOSPITALIST IP CONSULT TO PAIN MANAGEMENT Time Spent on Discharge: 15 minutes were spent in patient examination, evaluation, counseling as well as medication reconciliation, prescriptions for required medications, discharge plan and follow up. Surgeries/Procedures Performed: Treatments: Adjustment of medications pain management. Physical therapy. Significant Diagnostic Studies: Recent Labs: CBC: Lab Results Component Value Date/Time WBC 7.4 07/01/2023 04:42 AM RBC 4.04 07/01/2023 04:42 AM RBC 4.95 08/26/2018 09:47 AM HGB 11.6 07/01/2023 04:42 AM HCT 36.2 07/01/2023 04:42 AM MCV 89.6 07/01/2023 04:42 AM MCH 28.7 07/01/2023 04:42 AM MCHC 32.0 07/01/2023 04:42 AM RDW 13.0 07/01/2023 04:42 AM PLT 201 07/01/2023 04:42 AM BMP: Lab Results Component Value Date/Time GLUCOSE 275 07/01/2023 04:42 AM GLUCOSE 495 12/05/2022 01:20 AM NA 138 07/01/2023 04:42 AM K 4.2 07/01/2023 04:42 AM K 3.3 10/01/2020 07:45 PM CL 102 07/01/2023 04:42 AM CO2 26 07/01/2023 04:42 AM ANIONGAP 10 07/01/2023 04:42 AM BUN 10 07/01/2023 04:42 AM CREATININE 0.56 07/01/2023 04:42 AM BUNCRER 20 05/10/2023 01:50 PM CALCIUM 8.0 07/01/2023 04:42 AM LABGLOM >60.0 07/01/2023 04:42 AM GFRAA >60.0 04/15/2021 06:00 PM HFP: Lab Results Component Value Date/Time PROT 6.1 07/01/2023 04:42 AM CMP: Lab Results Component Value Date/Time GLUCOSE 275 07/01/2023 04:42 AM GLUCOSE 495 12/05/2022 01:20 AM NA 138 07/01/2023 04:42 AM K 4.2 07/01/2023 04:42 AM K 3.3 10/01/2020 07:45 PM CL 102 07/01/2023 04:42 AM CO2 26 07/01/2023 04:42 AM BUN 10 07/01/2023 04:42 AM CREATININE 0.56 07/01/2023 04:42 AM ANIONGAP 10 07/01/2023 04:42 AM ALKPHOS 72 07/01/2023 04:42 AM ALT 15 07/01/2023 04:42 AM AST 17 07/01/2023 04:42 AM BILITOT 0.4 07/01/2023 04:42 AM LABALBU 3.5 07/01/2023 04:42 AM LABALBU 4.5 07/21/2022 11:34 PM ALBUMIN 1.3 08/11/2022 02:34 PM LABGLOM >60.0 07/01/2023 04:42 AM GFRAA >60.0 04/15/2021 06:00 PM PROT 6.1 07/01/2023 04:42 AM CALCIUM 8.0 07/01/2023 04:42 AM PT/INR: Lab Results Component Value Date/Time PROTIME 12.4 05/25/2020 04:45 PM INR 0.9 05/25/2020 04:45 PM PTT: Lab Results Component Value Date/Time APTT 32 11/07/2019 04:20 AM FLP: Lab Results Component Value Date/Time CHOL 235 07/22/2019 09:34 AM TRIG 169 07/22/2019 09:34 AM HDL 48 07/22/2019 09:34 AM U/A: Lab Results Component Value Date/Time COLORU Yellow 05/10/2023 12:54 PM TURBIDITY Clear 05/10/2023 12:54 PM SPECGRAV 1.025 05/10/2023 12:54 PM HGBUR NEGATIVE 05/10/2023 12:54 PM PHUR 6.0 05/10/2023 12:54 PM PROTEINU NEGATIVE 05/10/2023 12:54 PM GLUCOSEU 2+ 05/10/2023 12:54 PM GLUCOSEU NEG 10/14/2011 09:24 PM KETUA NEGATIVE 05/10/2023 12:54 PM BILIRUBINUR NEGATIVE 05/10/2023 12:54 PM BILIRUBINUR NEGATIVE 12/04/2022 11:50 PM UROBILINOGEN Normal 05/10/2023 12:54 PM NITRU NEGATIVE 05/10/2023 12:54 PM LEUKOCYTESUR NEGATIVE 05/10/2023 12:54 PM TSH: Lab Results Component Value Date/Time TSH 2.66 11/09/2019 05:54 AM Radiology Last 7 Days: XR CERVICAL SPINE (2-3 VIEWS) Result Date: 07/08/2023 C5-C6 anterior discectomy and fusion with anterior plate and screw fixation in anatomic alignment. No acute abnormalities are noted. MRI CERVICAL SPINE WO CONTRAST Result Date: 07/08/2023 1. Status post anterior fusion of cervical spine at levels of C5-C7 appearing in satisfactory position. 2. No acute osseous abnormality. 3. Stable mild central canal stenosis at C5/C6 and C6/C7. 4. Redemonstration of neural foraminal narrowing as described above appearing similar compared to prior notable on the left at C5/C6 and C6/C7. Discharge Plan Disposition: Home Provider Follow-Up: No follow-up provider specified. Hospital/Incidental Findings Requiring Follow-Up: Left shoulder bursitis to be followed up by her primary care. Postop follow-up Dr. Abdi neurosurgery Patient Instructions Diet: diabetic diet Activity: activity as tolerated Other Instructions: Continue physical therapy at home. Follow-up 1 month in office Discharge Medications Medication List CONTINUE taking these medications ARIPiprazole 15 MG tablet Commonly known as: [employer] [place] blood glucose monitor kit and supplies 1 kit by Other route 4 times daily (before meals and nightly) Pt test 4x daily Dx E11.65. May substitute for generic or insurance covered product blood glucose test strips 1 strip by Other route 4 times daily (before meals and nightly) Pt test 4x daily Dx E11.65. May substitute for generic or insurance covered product [id number]-cdmghfnyajmfaut-QE 2-30-10 MG/5ML syrup Take 5 mLs by mouth 4 times daily as needed for Cough busPIRone 15 MG tablet Commonly known as: BUSPAR * DULoxetine 60 MG extended release capsule Commonly known as: CYMBALTA * DULoxetine 30 MG extended release capsule Commonly known as: CYMBALTA FreeStyle Myron 14 Day [place] Pool 1 actuation by Does not apply route 4 times daily (before meals and nightly) FreeStyle Myron 2 Sensor Misc USE DIRECTED to test BLOOD SUGAR BEFORE MEALS and NIGHTLY, leave sensor on for 14 days gabapentin 600 MG tablet Commonly known as: NEURONTIN Take 1 tablet by mouth 3 times daily for 90 days. hydrOXYzine pamoate 50 MG capsule Commonly known as: VISTARIL TAKE 1 CAPSULE BY MOUTH EVERY 6 HOURS NEEDED FOR ANXIETY Insulin Pen Needle 32G X 4 MM Misc 1 each by Does not apply route 4 times daily (before meals and nightly) lidocaine 5 % Commonly known as: LIDODERM Place 1 patch onto the skin daily 12 hours on, 12 hours off. loratadine 10 MG tablet Commonly known as: Claritin Take 1 tablet by mouth daily meclizine 25 MG tablet Commonly known as: ANTIVERT Take 1 tablet by mouth every 8 hours as needed for Dizziness metoprolol tartrate 25 MG tablet Commonly known as: LOPRESSOR TAKE 2 TABLETS BY MOUTH TWICE DAILY NovoLOG FlexPen 100 UNIT/ML injection pen Generic drug: insulin aspart INJECT 35 UNITS SUBCUTANEOUSLY THREE TIMES DAILY BEFORE MEALS * ONE TOUCH LANCETS Misc 1 each by Does not apply route 4 times daily Please provide lancets compatible with One Touch Verio * OneTouch Delica Lancets 33G Misc USE FOUR TIMES DAILY * Lancets Misc 1 each by Does not apply route 4 times daily (before meals and nightly) Pt test 4x daily Dx E11.65.May substitute for generic or insurance covered product pantoprazole 40 MG tablet Commonly known as: PROTONIX Take 1 tablet by mouth daily promethazine 25 MG tablet Commonly known as: PHENERGAN TAKE 1 TABLET BY MOUTH EVERY 6 HOURS NEEDED FOR NAUSEA and FOR VOMITING rosuvastatin 20 MG tablet Commonly known as: CRESTOR TAKE 1 TABLET BY MOUTH EVERY DAY tiZANidine 4 MG tablet Commonly known as: ZANAFLEX TAKE 1 TABLET BY MOUTH EVERY 8 HOURS NEEDED FOR MUSCLE SPASMS traZODone 100 MG tablet Commonly known as: DESYREL TAKE 2 TABLETS BY MOUTH NIGHTLY for sleep Trulicity 0.75 MG/0.5ML Sopn Generic drug: Dulaglutide Inject 0.75 mg into the skin once a week vitamin D 1.25 MG (13432 UT) Caps capsule Commonly known as: ERGOCALCIFEROL Take 1 capsule by mouth once a week * This list has 5 medication(s) that are the same as other medications prescribed for you. Read thedirections carefully, and ask your doctor or other care provider to review them with you. STOP taking these medications ascorbic acid 500 MG tablet Commonly known as: VITAMIN C levothyroxine 50 MCG tablet Commonly known as: SYNTHROID metoclopramide 5 MG tablet Commonly known as: REGLAN omeprazole 20 MG delayed release capsule Commonly known as: PRILOSEC ondansetron 4 MG disintegrating tablet Commonly known as: ZOFRAN-ODT Pertinent studies EXAM: XR Cervical Spine, 2 or 3 Views EXAM DATE/TIME: 07/08/2023 8:59 pm CLINICAL HISTORY: ORDERING SYSTEM PROVIDED HISTORY: Fusion TECHNOLOGIST PROVIDED HISTORY: Reason for exam:->Fusion Is the patient ?->No What reading provider will be dictating this exam?->CRC TECHNIQUE: Frontal and lateral views of the cervical spine. COMPARISON: No relevant prior studies available. FINDINGS: Vertebrae: No acute findings. No definite fracture. Normal alignment. Disc spaces: C5-C6 anterior discectomy and fusion with anterior plate and screw fixation in anatomic alignment. Soft tissues: No acute findings. IMPRESSION: C5-C6 anterior discectomy and fusion with anterior plate and screw fixation in anatomic alignment. No acute abnormalities are noted. EXAMINATION: MRI OF THE CERVICAL SPINE WITHOUT CONTRAST 07/08/2023 1:01 pm TECHNIQUE: Multiplanar multisequence MRI of the cervical spine was performed without the administration of intravenous contrast. COMPARISON: Correlation made with MRI cervical spine from June 03, 2023 HISTORY: ORDERING SYSTEM PROVIDED HISTORY: Fusion TECHNOLOGIST PROVIDED HISTORY: Reason for exam:->Fusion What reading provider will be dictating this exam?->CRC FINDINGS: There is satisfactory alignment of the cervical spine status post anterior fusion at levels of C5, C6, and C7. No evidence of fracture. No prevertebral soft tissue edema. Normal signal associated with the cervical spinal cord. No evidence of mass or hematoma. C2/C3: No central canal stenosis or neural foraminal narrowing. C3/C4: No central canal stenosis or neural foraminal narrowing. C4/C5: Minimal broad-based central and left paracentral disc herniation which is similar in size. No significant neural foraminal narrowing. C5/C6: Redemonstration of broad-based central disc herniation resulting in minimal effacement of the cord. There is stable mild central canal stenosis at this level with AP dimension of thecal sac measuring approximately 9 mm. There is moderate bilateral neural foraminal narrowing more significant on the left. C6/C7: Broad-based central disc herniation is present resulting in minimal effacement of the cord. There is stable mild central canal stenosis with AP dimension of thecal sac measuring approximately 9 mm. There is moderate left neural foraminal narrowing and mild right neural foraminal narrowing C7/T1: No central canal stenosis or significant neural foraminal narrowing. Incidental tiny synovial cyst projects into lateral margin of left neural foramen measuring approximately 2 mm. IMPRESSION: 1. Status post anterior fusion of cervical spine at levels of C5-C7 appearing in satisfactory position. 2. No acute osseous abnormality. 3. Stable mild central canal stenosis at C5/C6 and C6/C7. 4. Redemonstration of neural foraminal narrowing as described above appearing similar compared to prior notable on the left at C5/C6 and C6/C7. [facility] of Present illness Narrative* Selma Alarcon, PT - 07/01/2023 1:58 PM EST Physical Therapy Med Surg Initial Assessment Facility/Department: [address] ORTHO TELE Room: W292/W292-01 NAME: Gisel Carlton : 1975 (48 y.o.) CODE STATUS: Full Code Date of Service: 07/01/2023 Patient Diagnosis(es): Cervical stenosis of spine [M48.02] Cervical spinal stenosis [M48.02] No chief complaint on file. Patient Active Problem List Diagnosis Date Noted Cervical spinal stenosis 06/30/2023 Cervical stenosis of spine 06/17/2023 COVID-19 05/28/2020 Postviral syndrome 05/28/2020 Anterior chest wall pain due to excessive coughing, and patient was COVID-19 positive, symptomatic.05/12/2020 Anterior pleuritic pain in patient with COVID-19 05/12/2020 Costochondritis, acute 05/12/2020 Acute exacerbation of chronic generalized pain associated with significant psychosocial [id number]/14/2020 Fatigue due to exposure 05/12/2020 COVID-19 virus infection 05/05/2020 Acute exacerbation of Chronic right flank pain 04/19/2019 Generalized muscle ache 04/19/2019 Recurrent sinusitis 03/07/2019 Acquired absence of other specified parts of digestive tract 09/18/2018 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) 09/18/2018 Pure hypercholesterolemia, unspecified 09/18/2018 Umbilical hernia without obstruction and without gangrene 02/08/2018 Opiate use 12/30/2017 Diabetic polyneuropathy (HCC) 03/11/2017 Chronic abdominal pain 03/11/2017 Chronic lower back pain 03/11/2017 Torticollis 11/27/2014 Flank pain 10/19/2014 Tubular adenoma 10/04/2014 Recurrent kidney stones 04/24/2014 Hypertension 11/24/2013 Chest pain 11/21/2012 Steatosis of liver 11/21/2012 Adiposity 11/21/2012 Headache 04/24/2011 Hyperlipidemia 04/24/2011 GERD (gastroesophageal reflux disease) 04/24/2011 Acute hyperglycemia 04/24/2011 Past Medical History: Diagnosis Date Allergic rhinitis Dizziness Fatigue GERD (gastroesophageal reflux disease) Headache(784.0) Hematuria Hyperlipidemia Kidney stones Pap smear for cervical cancer screening 10/07 vag cuff Recurrent UTI Type A blood, Rh positive Type II or unspecified type diabetes mellitus without mention of complication, not stated as uncontrolled Past Surgical History: Procedure Laterality Date CARPAL TUNNEL RELEASE 2005 B/L CHOLECYSTECTOMY 2000 HYSTERECTOMY (CERVIX STATUS UNKNOWN) dr. riley LEG SURGERY Right for fracture repair LITHOTRIPSY SC RPR UMBILICAL HERNIA < 5 YRS REDUCIBLE N/A 02/12/2018 [place]PAIR [place]MBILICAL [place] [facility] [place] R[place]FF REPA[place] Right TONSILLECTOMY UPPER GASTROINTESTINAL ENDOSCOPY 02/17/2017 Judi JONES JR DO URETER STENT PLACEMENT 3 Chart Reviewed: Yes Patient assessed for rehabilitation services?: Yes Family / Caregiver Present: No Diagnosis: Cervical stenosis of spine s/p fusion General Comment Comments: Pt resting in bed - agreeable to PT evaluation Restrictions: Restrictions/Precautions: Up Ad Keshia, Contact Precautions (MRSA) SUBJECTIVE: Subjective: I haven't gotten any rest. Pain Pain: 8/10 pre and post session neck pain. RN notified. Recently medicated. pt agreeable to continue with session. Prior Level of Function: Social/Functional History Lives With: Son Type of Home: House Home Layout: Two level, Able to Live on Main level with bedroom/bathroom Home Access: Stairs to enter with rails Entrance Stairs - Number of Steps: 3 Bathroom Shower/Tub: Walk-in shower Bathroom Equipment: Shower chair, Grab bars in shower, Hand-held shower Home Equipment: Cane, Walker, rolling ADL Assistance: Independent Homemaking Assistance: Independent Ambulation Assistance: Independent (No AD) Transfer Assistance: Independent Active Core Maker Helper: No Patient's Core Maker Helper Info: Mom Occupation: Off due to injury Type of Occupation: [employer] OBJECTIVE: Vision Vision: Impaired Vision Exceptions: Wears glasses at all times Hearing: Within functional limits Cognition: Overall Orientation Status: Within Functional Limits Follows Commands: Within Functional Limits Overall Cognitive Status: WFL Cognition Comment: Mild increased processing time Observation/Palpation Observation: Pt mildly lethargic with flat affect, requiring increased cues for attention. agreeable to therapy assessment, no acute distress noted ROM: PROM: Within functional limits Strength: Strength: Within functional limits Neuro: Balance Sitting - Static: Good Sitting - Dynamic: Good Standing - Static: Good;- Standing - Dynamic: Good;- Tone: Normal Sensation: Intact Bed mobility Supine to Sit: Modified independent Sit to Supine: Modified independent Transfers Sit to Stand: Modified independent Stand to Sit: Modified independent Bed to Chair: Modified independent Ambulation Surface: Level tile Device: No Device Assistance: Modified Independent Quality of Gait: slow pacing, however no significant gait deviations. Distance: 150ft X 2 Stairs/Curb Stairs?: Yes Stairs # Steps : 3 Rails: Right ascending Assistance: Modified independent Comment: reciprocal PT Exercises Exercise Treatment: Educated on cervical spine mm setting exes. Activity Tolerance Activity Tolerance: Patient tolerated treatment well Patient Education Education Given To: Patient Education Provided: Role of Therapy;Plan of Care Education Method: Verbal Education Outcome: Verbalized understanding;Continued education needed ASSESSMENT: Decision Making: Low Complexity History: Med Exam: High Clinical Presentation: Med Therapy Prognosis: Good Barriers to Learning: none DISCHARGE RECOMMENDATIONS: Discharge Recommendations: Home independently, Outpatient PT No Skilled PT: Independent with functional mobility Assessment: Pt completes basic mobility at indep level of function. No concerns for DC plan at thistime. Requires PT Follow-Up: No PLAN OF CARE: Physical Therapy Plan General Plan: Discharge with evaluation only Safety Devices Type of Devices: All fall risk precautions in place Goals: Halfway Goals Textbook Associate Goal 1: NA AMPAC (6 CLICK) BASIC MOBILITY AM-PAC Inpatient Mobility Raw Score : 24 Therapy Time: Individual Time In 0955 Time Out 1003 Minutes 8 Selma Alarcon PT, 07/01/23 at 1:59 PM Definitions for assistance levels Independent = pt does not require any physical supervision or assistance from another person for activity completion. Device may be needed. Stand by assistance = pt requires verbal cues or instructions from another person, close to but nottouching, to perform the activity Minimal assistance= pt performs 75% or more of the activity; assistance is required to complete theactivity Moderate assistance= pt performs 50% of the activity; assistance is required to complete the activity Maximal assistance = pt performs 25% of the activity; assistance is required to complete the activity Dependent = pt requires total physical assistance to accomplish the task * Trent Velasquez MD - 07/01/2023 12:27 PM EST Hospitalist Progress Note PCP: Skye Jones APRN - [facility] Date of Admission: 06/30/2023 Chief Complaint: no acute events, afebrile, stable HD Medications: Reviewed Infusion Medications sodium chloride 100 mL/hr at 06/30/23 2209 sodium chloride dextrose Scheduled Medications ARIPiprazole 15 mg Oral Daily ascorbic acid 500 mg Oral Daily levothyroxine 50 mcg Oral Daily DULoxetine 60 mg Oral Daily DULoxetine 30 mg Oral QHS busPIRone 15 mg Oral TID metoprolol tartrate 50 mg Oral BID rosuvastatin 20 mg Oral Nightly mupirocin Each Nostril TID lidocaine 1 patch Topical Daily cetirizine 5 mg Oral Daily sodium chloride flush 5-40 mL IntraVENous 2 times per day acetaminophen 650 mg Oral Q6H bisacodyl 5 mg Oral Daily insulin lispro 0-8 Units SubCUTAneous TID WC insulin lispro 0-4 Units SubCUTAneous Nightly PRN Meds: ondansetron, hydrOXYzine pamoate, meclizine, tiZANidine, glucagon (rDNA), sodium chlorideflush, sodium chloride, oxyCODONE OR oxyCODONE, HYDROmorphone OR HYDROmorphone, ondansetron, magnesium hydroxide, polyethylene glycol, glucose, dextrose bolus OR dextrose bolus, dextrose, promethazine, traZODone Intake/Output Summary (Last 24 hours) at 07/01/2023 1227 Last data filed at 06/30/2023 1459 Gross per 24 hour Intake 1500 ml Output 50 ml Net 1450 ml Exam: BP 106/61 Pulse (!) 101 Temp 99.7 F (37.6 C) (Oral) Resp 16 Ht 1.702 m (5' 7 ) Wt 122.5 kg (270 lb) LMP (LMP Unknown) SpO2 91% BMI 42.29 kg/m General appearance: appears stated age and cooperative. Labs: Recent Labs 07/01/23 0442 WBC 7.4 HGB 11.6* HCT 36.2* PLT 201 Recent Labs 07/01/23 0442 NA 138 K 4.2 CL 102 CO2 26 BUN 10 CREATININE 0.56 CALCIUM 8.0* Recent Labs 07/01/23 0442 AST 17 ALT 15 BILITOT 0.4 ALKPHOS 72 No results for input(s): INR in the last 72 hours. No results for input(s): CKTOTAL , TROPONINI in the last 72 hours. Urinalysis: Lab Results Component Value Date/Time NITRU NEGATIVE 05/10/2023 12:54 PM WBCUA 2 TO 5 05/10/2023 12:54 PM WBCUA 3 12/04/2022 11:50 PM BACTERIA 1+ 05/10/2023 12:54 PM RBCUA 0 TO 2 05/10/2023 12:54 PM RBCUA >182 12/04/2022 11:50 PM BLOODU LARGE (3+) 12/04/2022 11:50 PM SPECGRAV 1.025 05/10/2023 12:54 PM GLUCOSEU 2+ 05/10/2023 12:54 PM GLUCOSEU NEG 10/14/2011 09:24 PM Radiology: Fluoro For Surgical Procedures Final Result Intraprocedural fluoroscopic spot images as above. See separate procedure report for more information. XR CERVICAL SPINE (2-3 VIEWS) (Results Pending) Assessment/Plan: C-spine stenosis - s/p C5-7 anterior diskectomy/fusion - management per primary service HTN - on Lopressor IDDM2 with hyperglycemia - on ISS GERD Depression/anxiety - on Buspirone, Abilify Severe obesity Chronic pain with opiate dependence Diet: ADULT DIET; Regular; 4 carb choices (60 gm/meal) Code Status: Full Code * Carmella Bailey RN - 07/01/2023 11:39 AM EST 1130: Notified Dr. Abdi of patient's complaints of continued poor pain control. Medicated patient with 5mg oxycodone at 1015, an hour later patient still reporting 8/10 pain in her neck. Dose for one time oxycodone 5mg ordered. Patient agrees to ambulate in hallways after lunch. Plan for discharge this afternoon. 1140: Entered patient's room to medicate with oxycodone as ordered by Dr. Abdi and patient did not startle or wake when nurse entered room. Patient was sleeping with her head to the side, snoring respirations heard. Patient aroused after nurse stated her name twice. Medicated patient as ordered for 8/10 neck pain. 1400: Ambulated patient in hallway, patient tolerated well. 1550: Rx, DC instructions, and follow up discussed. Wound care and activity discussed. Patient agrees to DC plan, denies questions. No distress noted on discharge. 1555: Wheelchair to private car at main entrance. Patient discharged home with her father. Wheelchair to main entrance via transporter. Patient in no distress upon departure from [address] [place] [address]. * Jacki Claire OTR/Yomaira - 07/01/2023 11:01 AM EST [facility]AGA OCCUPATIONAL THERAPY EVALUATION - ACUTE NAME: Gisel Carlton : 1975 (48 y.o.) CODE STATUS: Full Code Room: [place] [address] Date of Service: 07/01/2023 Patient Diagnosis(es): Cervical stenosis of spine [M48.02] Cervical spinal stenosis [M48.02] Patient Active Problem List Diagnosis Date Noted Cervical spinal stenosis 06/30/2023 Cervical stenosis of spine 06/17/2023 COVID-19 05/28/2020 Postviral syndrome 05/28/2020 Anterior chest wall pain due to excessive coughing, and patient was COVID-19 positive, symptomatic.05/12/2020 Anterior pleuritic pain in patient with COVID-19 05/12/2020 Costochondritis, acute 05/12/2020 Acute exacerbation of chronic generalized pain associated with significant psychosocial [id number]/14/2020 Fatigue due to exposure 05/12/2020 COVID-19 virus infection 05/05/2020 Acute exacerbation of Chronic right flank pain 04/19/2019 Generalized muscle ache 04/19/2019 Recurrent sinusitis 03/07/2019 Acquired absence of other specified parts of digestive tract 09/18/2018 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) 09/18/2018 Pure hypercholesterolemia, unspecified 09/18/2018 Umbilical hernia without obstruction and without gangrene 02/08/2018 Opiate use 12/30/2017 Diabetic polyneuropathy (HCC) 03/11/2017 Chronic abdominal pain 03/11/2017 Chronic lower back pain 03/11/2017 Torticollis 11/27/2014 Flank pain 10/19/2014 Tubular adenoma 10/04/2014 Recurrent kidney stones 04/24/2014 Hypertension 11/24/2013 Chest pain 11/21/2012 Steatosis of liver 11/21/2012 Adiposity 11/21/2012 Headache 04/24/2011 Hyperlipidemia 04/24/2011 GERD (gastroesophageal reflux disease) 04/24/2011 Acute hyperglycemia 04/24/2011 Past Medical History: Diagnosis Date Allergic rhinitis Dizziness Fatigue GERD (gastroesophageal reflux disease) Headache(784.0) Hematuria Hyperlipidemia Kidney stones Pap smear for cervical cancer screening 10/07 vag cuff Recurrent UTI Type A blood, Rh positive Type II or unspecified type diabetes mellitus without mention of complication, not stated as uncontrolled Past Surgical History: Procedure Laterality Date CARPAL TUNNEL RELEASE 2005 B/L CHOLECYSTECTOMY 2001 HYSTERECTOMY (CERVIX STATUS UNKNOWN) dr. riley LEG SURGERY Right for fracture repair LITHOTRIPSY SC RPR UMBILICAL HERNIA < 5 YRS REDUCIBLE N/A 02/12/2018 REPAIR UMBILICAL [place] [facility] [place] ROTATOR CUFF REPAIR Right TONSILLECTOMY UPPER GASTROINTESTINAL ENDOSCOPY 02/17/2017 Judi JONES JR DO URETER STENT PLACEMENT 3 Restrictions Restrictions/Precautions: Up Ad Keshia Safety Devices: Safety Devices Type of Devices: Call light within reach;Left in bed Patient's date of confirmed: Yes General: Chart Reviewed: Yes Patient assessed for rehabilitation services?: Yes Subjective Subjective: I'm okay 02/05 neck Pain at start of treatment: Yes: 02/05 Pain at end of treatment: Yes: 02/05 Location: Neck Description: Sore/aching Nursing notified: Declined RN: Intervention: Repositioned Other: States she has had pain medication prior to eval Prior Level of Function: Social/Functional History Lives With: Son Type of Home: House Home Layout: Two level, Able to Live on Main level with bedroom/bathroom Home Access: Stairs to enter with rails Entrance Stairs - Number of Steps: 3 Bathroom Shower/Tub: Walk-in shower Bathroom Equipment: Shower chair, Grab bars in shower, Hand-held shower Home Equipment: Cane, Walker, rolling ADL Assistance: Independent Homemaking Assistance: Independent Ambulation Assistance: Independent (No AD) Transfer Assistance: Independent Active Core Maker Helper: No Patient's Core Maker Helper Info: Mom Occupation: Off due to injury Type of Occupation: [employer] OBJECTIVE: Orientation Status: Orientation Overall Orientation Status: Within Functional Limits Observation: Observation/Palpation Posture: Good Observation: Pt alert and attentive, agreeable to therapy assessment, no acute distress noted Cognition Status: Cognition Overall Cognitive Status: [facility] Cognition Comment: Mild increased processing time Perception Status: Perception Overall Perceptual Status: [facility] Vision and Hearing Status: Vision Vision Exceptions: Wears glasses at all times Hearing Hearing: Within functional limits Vision - Basic Assessment Prior Vision: Wears contacts Visual History: No significant visual history Patient Visual Report: No visual complaint reported. Visual Field Cut: No Oculo Motor Control: WNL GROSS ASSESSMENT AROM/PROM: AROM: Within functional limits ROM: LUE AROM (degrees) LUE AROM : WFL Left Hand AROM (degrees) Left Hand AROM: WFL RUE AROM (degrees) RUE AROM : WFL Right Hand AROM (degrees) Right Hand AROM: WFL UE STRENGTH: Strength: Within functional limits UE COORDINATION: Coordination: Within functional limits UE TONE: Tone: Normal UE SENSATION: Sensation: Intact (Reports improving) Hand Dominance: Hand Dominance Hand Dominance: Right ADL Status: ADL Feeding: Independent Grooming: Modified independent UE Bathing: Modified independent LE Bathing: Modified independent UE Dressing: Modified independent LE Dressing: Modified independent Toileting: Modified independent Additional Comments: Simulated ADLs as above. Pt demonstrates no signficant LOB and has no difficulty reaching feet to adjust clothing. States she has been toileting independently. Toilet Transfers Toilet Transfer: Unable to assess Toilet Transfers Comments: Declines need, states she has been toileting independently Functional Mobility: Transfers Sit to stand: Modified independent Stand to sit: Modified independent Patient ambulated household distance in hallway with No device at Independent level. No LOB, slow moving, G- safety/ Bed Mobility Bed mobility Supine to Sit: Modified independent Sit to Supine: Modified independent Bed Mobility Comments: HOB elevated. Reports no concerns Seated and Standing Balance: Balance Sitting: Intact Standing: Impaired Standing - Static: Good Standing - Dynamic: Fair Functional Endurance: Activity Tolerance Activity Tolerance: Patient Tolerated treatment well D/C Recommendations: OT D/C RECOMMENDATIONS REQUIRES OT FOLLOW-UP: No Equipment Recommendations: OT Equipment Recommendations Equipment Needed: No OT Education: Patient Education Education Given To: Patient Education Provided: Role of Therapy;Plan of Care Education Method: Verbal Barriers to Learning: None Education Outcome: Verbalized understanding OT Follow Up: OT D/C RECOMMENDATIONS REQUIRES OT FOLLOW-UP: No Assessment/Discharge Disposition: Assessment: Pt is a 48 year old woman from home who presents to [facility] for planned cervical decompression. Pt demonstrates no significant functional deficits and requires no physical assist. No acute OT needs identified. Prognosis: Good No Skilled OT: Independent with ADL's, Safe to return home Decision Making: Low Complexity History: Pt's medical history is moderately complex Exam: Pt has no performance deficits Assistance / Modification: Pt requires no physical assist AMPAC (Six Click) Self care Score How much help is needed for putting on and taking off regular lower body clothing?: None How much help is needed for bathing (which includes washing, rinsing, drying)?: None How much help is needed for toileting (which includes using toilet, bedpan, or urinal)?: None How much help is needed for putting on and taking off regular upper body clothing?: None How much help is needed for taking care of personal grooming?: None How much help for eating meals?: None [facility] Inpatient Daily Activity Raw Score: 24 AM-[facility] Inpatient ADL T-Scale Score : 57.54 ADL Inpatient CMS 0-100% Score: 0 Therapy baez for assistance levels - Independent/Mod I = Pt. is able to perform task with no assistance but may require a device Stand by assistance = Pt. does not perform task at an independent level but does not need physical assistance, requires verbal cues Minimal, Moderate, Maximal Assistance = Pt. requires physical assistance (25%, 50%, 75% assist fromhelper) for task but is able to actively participate in task Dependent = Pt. requires total assistance with task and is not able to actively participate with task completion Plan: Occupational Therapy Plan Times Per Week: No acute OT Goals: Patient Goal: Patient goals : I want to get home Discussed and agreed upon: Yes Comments: Therapy Time: Individual Time In 954 Time Out 1003 Minutes 8 Eval: 8 minutes Electronically signed by: TJ Beaulieu/Yomaira, 07/01/2023, 11:01 AM * Ruben Abdi MD - 07/01/2023 8:36 AM EST She has had some improvement in arm symptoms. She has been up to the bathroom and voided. She is taking p.o. Moving all extremities strongly, sensation grossly intact to light touch Incision clean dry and intact Assessment and plan: Postop day 1 status post C5-7 ACDF. She has been mobilizing and tolerating p.o. and voiding. I will discharge her to home today. Ruben Abdi MD * Vicenta Rodriguez RN - 06/30/2023 7:20 PM EST Pt placed on bedpan, states I just need to sit on it for a while. Waiting for transport. * Vicenta Rodriguez RN - 06/30/2023 6:00 PM EST Pt's daughter in at bedside. * Vicenta Rodriguez RN - 06/30/2023 5:36 PM EST Vickie at 4mm, midline tongue, Edqual and moderately strong hand grasps and pedal pushes. Anterior neck incision intact, site soft and without swelling, voice slightly raspy, responses oriented and appropriate. * Vicenta Rodriguez RN - 06/30/2023 5:30 PM EST Pt placed onto bedpan, unable to void at this time, * Vicenta Rodriguez RN - 06/30/2023 2:55 PM EST Received from or into pacu in a bed arousable, groggy accompanied in by Jc Borges crna. O2 on at 6L mask, SAO2 95%, See assessment, Dr Abdi in to see patient. One touch 90. * Grace Carlin RN - 06/30/2023 11:[address] Rosado at the bedside to attempt iv start with ultrasound. Pt tolerating well at this time. [facility] Intraprocedural fluoroscopic spot images as above. See separate procedure report for more information. [facility] [id number] Hospital course Narrative* Ruben Abdi MD - 07/01/2023 8:37 AM EST Images from the original note were not included. Discharge Summary Gisel Carlton : 1975 ADMIT DATE: 06/30/2023 DISCHARGE DATE: 07/01/2023 PRIMARY CARE PHYSICIAN: Skye Jones APRN - DIRECTOR OF PHOTOGRAPHY VISIT STATUS: Observation CODE STATUS: Full Code DISCHARGE DIAGNOSES: Principal Problem: Cervical stenosis of spine Active Problems: Cervical spinal stenosis Resolved Problems: * No resolved hospital problems. * SURGICAL PROCEDURES: C5-6, C6-7 ACDF on 06/30/2023 HOSPITAL COURSE: The patient was admitted to the hospital on the day of surgery and underwent the above noted procedure. Post-operatively, the patient was transferred to the PACU in stable condition and then to [facility]. They received 24 hours of prophylactic intravenous antibiotics. DVT prophylaxis included SCDs and early ambulation. Diet was advanced, patient was ambulated and able to urinate, and pain was reasonably controlled. The patient progressed well throughout the hospitalization and was deemed stable for discharge to home on the above listed date. CONSULTANTS: Hospitalist DISCHARGE MEDICATIONS: Medication List CONTINUE taking these medications blood glucose monitor kit and supplies 1 kit by Other route 4 times daily (before meals and nightly) Pt test 4x daily Dx E11.65. May substitute for generic or insurance covered product FreeStyle Myron 14 Day [place] Pool 1 actuation by Does not apply route 4 times daily (before meals and nightly) FreeStyle Myron 2 Sensor Misc USE DIRECTED to test BLOOD SUGAR BEFORE MEALS and NIGHTLY, leave sensor on for 14 days Insulin Pen Needle 32G X 4 MM Misc 1 each by Does not apply route 4 times daily (before meals and nightly) * ONE TOUCH LANCETS Misc 1 each by Does not apply route 4 times daily Please provide lancets compatible with One Touch Verio * OneTouch Delica Lancets 33G Misc USE FOUR TIMES DAILY * Lancets Misc 1 each by Does not apply route 4 times daily (before meals and nightly) Pt test 4x daily Dx E11.65.May substitute for generic or insurance covered product * This list has 3 medication(s) that are the same as other medications prescribed for you. Read thedirections carefully, and ask your doctor or other care provider to review them with you. ASK your doctor about these medications ARIPiprazole 15 MG tablet Commonly known as: ABILIFWinifred ascorbic acid 500 MG tablet Commonly known as: VITAMIN C Take 1 tablet by mouth daily blood glucose test strips 1 strip by Other route 4 times daily (before meals and nightly) Pt test 4x daily Dx E11.65. May substitute for generic or insurance covered product mzzurebwbuvitog-tofcyjbzeduokil-ZA 2-30-10 MG/5ML syrup Take 5 mLs by mouth 4 times daily as needed for Cough busPIRone 15 MG tablet Commonly known as: BUSPAR celecoxib 200 MG capsule Commonly known as: CELEBREX TAKE 1 CAPSULE BY MOUTH DAILY * DULoxetine 60 MG extended release capsule Commonly known as: CYMBALTA * DULoxetine 30 MG extended release capsule Commonly known as: CYMBALTA gabapentin 600 MG tablet Commonly known as: NEURONTIN Take 1 tablet by mouth 3 times daily for 90 days. hydrOXYzine pamoate 50 MG capsule Commonly known as: VISTARIL TAKE 1 CAPSULE BY MOUTH EVERY 6 HOURS NEEDED FOR ANXIETY ibuprofen 800 MG tablet Commonly known as: ADVIL;MOTRIN TAKE 1 TABLET BY MOUTH THREE TIMES DAILY WITH MEALS levothyroxine 50 MCG tablet Commonly known as: SYNTHROID lidocaine 5 % Commonly known as: LIDODERM Place 1 patch onto the skin daily 12 hours on, 12 hours off. loratadine 10 MG tablet Commonly known as: Claritin Take 1 tablet by mouth daily meclizine 25 MG tablet Commonly known as: ANTIVERT Take 1 tablet by mouth every 8 hours as needed for Dizziness metoclopramide 5 MG tablet Commonly known as: REGLAN metoprolol tartrate 25 MG tablet Commonly known as: LOPRESSOR TAKE 2 TABLETS BY MOUTH TWICE DAILY mupirocin 2 % ointment Commonly known as: BACTROBAN Apply to nasal cavities 3 times daily for 5 days. NovoLOG FlexPen 100 UNIT/ML injection pen Generic drug: insulin aspart INJECT 35 UNITS SUBCUTANEOUSLY THREE TIMES DAILY BEFORE MEALS omeprazole 20 MG delayed release capsule Commonly known as: PRILOSEC Take 1 capsule by mouth once daily ondansetron 4 MG disintegrating tablet Commonly known as: ZOFRAN-ODT Take 1 tablet by mouth 3 times daily as needed for Nausea or Vomiting oxyCODONE 5 MG immediate release tablet Commonly known as: Roxicodone Take 1 tablet by mouth every 6 hours as needed for Pain for up to 7 days. Intended supply: 7 days. Take lowest dose possible to manage pain Max Daily Amount: 20 mg pantoprazole 40 MG tablet Commonly known as: PROTONIX Take 1 tablet by mouth daily promethazine 25 MG tablet Commonly known as: PHENERGAN TAKE 1 TABLET BY MOUTH EVERY 6 HOURS NEEDED FOR NAUSEA and FOR VOMITING rosuvastatin 20 MG tablet Commonly known as: CRESTOR TAKE 1 TABLET BY MOUTH EVERY DAY tiZANidine 4 MG tablet Commonly known as: ZANAFLEX TAKE 1 TABLET BY MOUTH EVERY 8 HOURS NEEDED FOR MUSCLE SPASMS traZODone 100 MG tablet Commonly known as: DESYREL TAKE 2 TABLETS BY MOUTH NIGHTLY for sleep Trulicity 0.75 MG/0.5ML Sopn Generic drug: Dulaglutide Inject 0.75 mg into the skin once a week vitamin D 1.25 MG (96300 UT) Caps capsule Commonly known as: ERGOCALCIFEROL Take 1 capsule by mouth once a week * This list has 2 medication(s) that are the same as other medications prescribed for you. Read thedirections carefully, and ask your doctor or other care provider to review them with you. Where to Get Your Medications These medications were sent to [id number] - [place], [place] - [address] - P [phone] - F [phone] [place] [address] mupirocin 2 % ointment oxyCODONE 5 MG immediate release tablet DIET: ADULT DIET; Regular; 4 carb choices (60 gm/meal) ACTIVITY: No lifting greater than 30 pounds x 3 weeks Follow up with [facility] [place] [address] Abdi in 4 weeks with cervical x-rays before appointment Follow up with Skye Jones APRN - [facility] , call to make appointment INSTRUCTIONS TO MA/SW: Please call patient on day after discharge (must document patient contacted within 2 business days of discharge). FOLLOW UP QUESTIONS FOR MA/SW: 1. Did you get medications filled and taking them as instructed from discharge? 2. Are you following your discharge instructions from your hospital stay? 3. Please confirm patient is scheduled for a follow up appointment within the above time frame. SIGNED: Ruben Abdi MD 07/01/2023, 8:37 AM [facility] Discharge instructions* Discharge Instructions* Ruben Abdi MD - 06/30/2023 10:47 AM EST No lifting greater than 30 pounds x 3 weeks. May shower, weight 1 week to soak in tub. To follow-up with nurse practitioner in 2 weeks, to follow-up with Dr. Abdi in 4 weeks with cervical x-rays before appointment. [facility] Discharge instructions Patient Education 06/07/2023 05:35:19 Flank Pain, Adult Flank Pain, Adult Flank pain is pain that is located on the side of the body between the upper abdomen and the spine.This area is called the flank. The pain may occur over a short period of time (acute), or it may belong-term or recurring (chronic). It may be mild or severe. Flank pain can be caused by many things, including: Muscle soreness or injury. Kidney infection, kidney stones, or kidney disease. Stress. A disease of the spine (vertebral disk disease). A lung infection (pneumonia). Fluid around the lungs (pulmonary edema). A skin rash caused by the chickenpox virus (shingles). Tumors that affect the back of the abdomen. Gallbladder disease. Follow these instructions at home: Drink enough fluid to keep your urine pale yellow. Rest as told by your health care provider. Take xcxt-jsc-juqbcnq and prescription medicines only as told by your health care provider. Keep a journal to track what has caused your flank pain and what has made it feel better. Keep all follow-up visits. This is important. Contact a health care provider if: Your pain is not controlled with medicine. You have new symptoms. Your pain gets worse. Your symptoms last longer than 2 3 days. You have trouble urinating or you are urinating very frequently. Get help right away if: You have trouble breathing or you are short of breath. Your abdomen hurts or it is swollen or red. You have nausea or vomiting. You feel faint, or you faint. You have blood in your urine. You have flank pain and a fever. These symptoms may represent a serious problem that is an emergency. Do not wait to see if the symptoms will go away. Get medical help right away. Call your local emergency services (911 in the [place] Do not drive yourself to the hospital. Summary Flank pain is pain that is located on the side of the body between the upper abdomen and the spine. The pain may occur over a short period of time (acute), or it may be long-term or recurring (chronic). It may be mild or severe. Flank pain can be caused by many things. Contact your health care provider if your symptoms get worse or last longer than 2 3 days. This information is not intended to replace advice given to you by your health care provider. Make sure you discuss any questions you have with your health care provider. Document Revised: 08/26/2021 Document Reviewed: 08/26/2021 [employer] Patient Education 2022 [email or web address]. 06/07/2023 05:35:19 Constipation, Adult Constipation, Adult Constipation is when a person has fewer than three bowel movements in a week, has difficulty havinga bowel movement, or has stools (feces) that are dry, hard, or larger than normal. Constipation maybe caused by an underlying condition. It may become worse with age if a person takes certain medicines and does not take in enough fluids. Follow these instructions at home: Eating and drinking Eat foods that have a lot of fiber, such as beans, whole grains, and fresh fruits and vegetables. Limit foods that are low in fiber and high in fat and processed sugars, such as fried or sweet foods. These include amharic fries, hamburgers, cookies, candies, and soda. Drink enough fluid to keep your urine pale yellow. General instructions Exercise regularly or as told by your health care provider. Try to do 150 minutes of moderate exercise each week. Use the bathroom when you have the urge to go. Do not hold it in. Take ofrv-kbp-rziklmu and prescription medicines only as told by your health care provider. This includes any fiber supplements. During bowel movements: ?Practice deep breathing while relaxing the lower abdomen. ?Practice pelvic floor relaxation. Watch your condition for any changes. Let your health care provider know about them. Keep all follow-up visits as told by your health care provider. This is important. Contact a health care provider if: You have pain that gets worse. You have a fever. You do not have a bowel movement after 4 days. You vomit. You are not hungry or you lose weight. You are bleeding from the opening between the buttocks (anus). You have thin, pencil-like stools. Get help right away if: You have a fever and your symptoms suddenly get worse. You leak stool or have blood in your stool. Your abdomen is bloated. You have severe pain in your abdomen. You feel dizzy or you faint. Summary Constipation is when a person has fewer than three bowel movements in a week, has difficulty havinga bowel movement, or has stools (feces) that are dry, hard, or larger than normal. Eat foods that have a lot of fiber, such as beans, whole grains, and fresh fruits and vegetables. Drink enough fluid to keep your urine pale yellow. Take jqps-ckk-ecoefup and prescription medicines only as told by your health care provider. This includes any fiber supplements. This information is not intended to replace advice given to you by your health care provider. Make sure you discuss any questions you have with your health care provider. Document Revised: 05/02/2020 Document Reviewed: 05/02/2020 [employer] Patient Education 2022 [email or web address]. Follow Up Care 06/06/2023 22:17:42 With:SKYE JONES Address: [address] [place] [phone] Business (1) When:Within 3 Day(s) [facility]12-09-2023 Evaluation + Plan noteExtracted from: Title:ED Note Author:Grey Putnam DO Date :06/06/23 Constipation (K59.00: Consti pation, unspecified) Flank pain (R10.9: Unspecified abdominal pain) Orders: dicyclomine, 10 mg = 1 cap(s), Oral, QID, X 7 day(s), # 28 cap(s), Refills(s) 0, Pharmacy: [id number], 170, cm, 06/06/23 22:30:00 EST, Height/Length Dosing, 127.1, kg, 06/06/23 22:30:00 EST, Weight Dosing diphenhydrAMINE, 25 mg = 0.5 mL, Injection, IV Push, Once, Stop date 06/06/23 22:53:00 EST, STAT, Start date 06/06/23 22:53:00 EST, 06/06/23 22:53:00 EST gabapentin, 600 mg = 2 cap(s), Cap, Oral, Once, Stop date 06/07/23 2:43:00 EST, STAT, Start date 06/07/23 2:43:00 EST, 06/07/23 2:43:00 EST HYDROmorphone, 0.5 mg = 0.5 mL, Injection, IV Push, Once, Stop date 06/06/23 22:35:00 EST, STAT, Start date 06/06/23 22:35:00 EST, 06/06/23 22:35:00 EST HYDROmorphone, 0.5 mg = 0.5 mL, Injection, IV Push, Once, Stop date 06/07/23 0:12:00 EST, STAT, Start date 06/07/23 0:12:00 EST, 06/07/23 0:12:00 EST HYDROmorphone, 0.5 mg = 0.5 mL, Injection, IV Push, Once, Stop date 06/07/23 2:43:00 EST, STAT, Start date 06/07/23 2:43:00 EST, 06/07/23 2:43:00 EST metoclopramide, 10 mg = 2 mL, Injection, IV Push, Once, Stop date 06/06/23 22:53:00 EST, STAT, Start date 06/06/23 22:53:00 EST, 06/06/23 22:53:00 EST metoprolol, 50 mg = 1 tab(s), Tab-ER, Oral, Once, Stop date 06/07/23 2:43:00 EST, STAT, Start date 06/07/23 2:43:00 EST, 06/07/23 2:43:00 EST polyethylene glycol 3350, 17 gram, Oral, Daily, dissolve in water before taking, # 527 gram, Refills(s) 0, Pharmacy: [id number], 170, cm, 06/06/23 22:30:00 EST, Height/Length Dosing, 127.1, kg, 06/06/23 22:30:00 EST, Weight Dosing Sodium Chloride 0.9% intravenous solution, 1,000 mL, Soln-IV, IV, Once, Stop date 06/07/23 1:18:00 EST, STAT, Start date 06/07/23 1:18:00 EST, Infuse over 61, minute(s) Sodium Chloride 0.9% intravenous solution, 1,000 mL, Soln-IV, IV, Once, Stop date 06/06/23 22:35:00 EST, STAT, Start date 06/06/23 22:35:00 EST, Infuse over 61, minute(s) Add on Test Automated Diff Basic Metabolic Panel CBC w/ Auto Diff CT Abdomen/Pelvis w/o Contrast ECG 12 Lead Adult eGFR Hepatic Function Panel Lipase Level Saline Lock Insert Troponin U Beta Hcg Qual UA With Cult Reflex Urine Culture [facility]10-24-2023 Evaluation note* Encounter Date Diagnosis Assessment Notes Treatment Notes Treatment Clinical Notes Mar, Ingrown toenail of right foot with infection (ICD-10 - L60.0) Prescription sent for Bactrim DS instructed patient to take until completed. Instructed to wash great toe with antibacterial soap and complete Epson salt soaks 3-4 times daily. Instructed patient to follow-up with podiatry for ingrown toenail removal. Long discussion with patient regarding diabetic foot care and importance of her following up with podiatry due to increased risk of long-term complications from untreated infections. Instructed patient to seek immediate medical attention at the ER if develops a red streak up the foot and leg. All questions and concerns addressed. [employer] Other 08-06-2023 Discharge summary Author Maxim Pinto [facility] February 01, 2023 11:12am Note Date/Time February 01, 2023 11: 10am [facility] [address] [place], [place] [id number] Discharge Summary Signed Patient: Gisel Carlton MR#: [id number] : 1975 Acct:[id number] Age/Sex: 47 / F Adm Date: 3 Loc: 1S Room: 1X1284-[address]: Yves Dukes MD Copies to: MD Maxim Perales MD Nicole E Leach, CERTIFIED PROSTHETIST VICE PRESIDENT, DIRECTOR OF PHOTOGRAPHY~ Providers Date of Discharge: 02/01/23 Discharging Provider: Maxim Pinto Primary Care Provider: Skye Jones Discharge Diagnosis (1) Suicidal ideation: (2) Major depressive disorder, recurrent: Final Diagnosis Final Discharge Diagnosis: Major depressive disorder, recurrent Summary Hospital Course Hospital course: According to admission note: This is a 47-year-old female with reported history of depression who presents for inpatient admission due to worsening of suicidialideation and depressed feelings. Reportedly, Pt states that she came to the hospital last night due to right kidney pain but mostly just depressed and admitted to being depressed for a couple of years. At the time of the interview Gisel presented as tearful and sad. She reports a longstanding history of depression manifested as 5 recent hospitalizations (since November, the most recent being 2 weeks ago) for depression and suicidal ideation. She reports that her depression is constant. Patient was personally seen by me on the day of the encounter.? I reviewed the history and performed the baez elements of the assessment.? I formulated the planof care and confirmed this with the resident as noted below The patient reports that she recently feels as though she has lost everything ,marking her diagnosis with COVID in 2019, leaving her in 2020, losing her house, vehicles, apartment, job, peace and privacy , living with her parents, four recent surgeries, injuries, and internal family conflict with her seven siblings as very large sources of stress. She states that she cares for her mother (who has parkinson's) at home by doing housework and bringing her to appointments, but reports that her siblings recently criticized her and her level of contribution to her parents. She states that this is the major reason for her recent increase in depressed feelings. She states that the only practices that have improved her feelings are walking and meeting with her day treatment group, though she states this is difficult to do as she does not currently have a vehicle. Past psych history: Reports following with day treatment program in [place] and is supposed to meet with a Fanny there, but has not. Denies previously being diagnosed with any psychiatric illnesses but admits to longstanding feelings of depression. Past hospitalizations: 5 hospitalizations since November, most recent two weeks ago. Past suicide attempts: Denies previous attempts, admits previous ideation. Family psych history: Denies history of psychiatric illness in family. Previous medications: Aripirazole, duloxetine, gabapentin, hydroxyzine pamoate, olanzapine, trazodone, venlafaxine Alcohol and drug use: Denies current/history of substance use. Living: Reports living with mother and father at home. Reports recent stress in regard to living situation, with siblings criticizing her for not doing enough their parents. 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 Relationships: Reports recent serious relationship but states that her partneris uncommitted and leaves her feeling lonely. Patient was transition from Cymbalta to Effexor. She tolerated the medication without any problems and did not report any side effects. She had gradual improvement of her symptoms as time went on. She was social on the unit and attended groups. She did not exhibit any behavior concerning for suicidality. She did not have any conflict with peers or staff. On the day of discharge report that she is feeling good. She denied any depression or suicidality. Sheis looking forward to returning back to day treatment which she stated she enjoyed. She stated that she would continue medications and follow-up with outpatient appointments. Condition Condition at Discharge: Stable Status at Discharge Cognitive/behavioral status at discharge: Mental Status Exam: Appearance: grossly normal Mental Status: mental status grossly normal Mood: Euthymic mood Affect: Normal affect Speech and Movement: speech and movement normal and speech clear Attitude: cooperative Thought Process: normal Thought Content: Denied hallucinations, no homicidality and no suicidality Insight: Good Judgment: Good Functional status at discharge: independent ambulation Overall status at discharge: patient is back to baseline Time Spent with Patient Time spent providing/coordinating discharge services (# min): 30 Exam Physical Exam Vital Signs: Temp Pulse Resp BP Pulse Ox O2 Del Method 98.0 F 91 H 16 134/90 93 L Room Air 02/01/23 07:30 02/01/23 07:30 02/01/23 07:30 02/01/23 07:30 02/01/23 07:30 02/01/23 07:30 Discharge Plan Discharge Plan Patient Disposition: Home Activity: No Activity Restriction Diet: Regular Additional Instructions: Regular Diet No Activity Restrictions Instructions: Depression, Adult (DC), [facility] [place] Instructions Prescriptions: New venlafaxine [Effexor XR] 150 mg capsule,extended release 24hr 150 mg PO DAILY Qty: 30 0RF Continued omeprazole 20 mg Capsule,Delayed Release(Dr/Ec) 20 mg PO DAILY tizanidine 4 mg tablet 4 mg PO TID PRN (Reason: Pain) Patient Comments: TAKE 1 TABLET BY MOUTH EVERY 6 HOURS NEEDED FOR MUSCLE SPASMS gabapentin 600 mg tablet 600 mg PO TID Patient Comments: TAKE 1 TABLET BY MOUTH THREE TIMES DAILY rosuvastatin 20 mg tablet 20 mg PO DAILY Patient Comments: TAKE 1 TABLET BY MOUTH ONCE DAILY celecoxib 200 mg capsule 200 mg PO DAILY Patient Comments: TAKE 1 CAPSULE BY MOUTH DAILY loratadine 10 mg tablet 10 mg PO DAILY Patient Comments: TAKE 1 TABLET BY MOUTH DAILY insulin aspart U-100 [Novolog FlexPen U-100 Insulin] 100 unit/mL (3 mL) insulin pen 20 unit SUBCUT TID.AC Patient Comments: INJECT 35 UNITS SUBCUTANEOUSLY THREE TIMES DAILY BEFORE MEALS trazodone 100 mg Tablet 200 mg PO HS 30 Days Qty: 60 0RF hydroxyzine pamoate 50 mg capsule 50 mg PO Q6H PRN (Reason: Anxiety) Patient Comments: TAKE 1 CAPSULE BY MOUTH FOUR TIMES DAILY NEEDED FOR ANXIETY levothyroxine 50 mcg Tablet 50 mcg PO DAILY.0630 Qty: 90 0RF metoclopramide HCl 5 mg Tablet 5 mg PO TID.AC PRN (Reason: nausea) Qty: 30 0RF promethazine 25 mg Tablet 25 mg PO Q6H PRN (Reason: Nausea/Vomiting) Qty: 0 0RF aripiprazole 10 mg Tablet 10 mg PO QHS 30 Days Qty: 30 0RF metoprolol tartrate 25 mg tablet 50 mg PO BID Patient Comments: TAKE 1 TABLET BY MOUTH TWICE DAILY polyethylene glycol 3350 [Miralax] 17 gram powder in packet 17 g PO DAILY PRN (Reason: Constipation) Qty: 1 0RF Rx Instructions: mix into 4-8 oz. of any hot/cold/room temp. beverage; use immediately insulin aspart U-100 [Novolog FlexPen U-100 Insulin] 100 unit/mL (3 mL) insulin pen See Protocol SUBCUT ACHS Protocol: Corrective Scale #2 Condition: 150-199 mg/dL Dose/Route: 2 unit Condition: 200-249 mg/dL Dose/Route: 3 unit Condition: 250-299 mg/dL Dose/Route: 5 unit Condition: 300-349 mg/dL Dose/Route: 7 unit Condition: 350-399 mg/dL Dose/Route: 8 unit Condition: greater than or = 400 mg/dL Dose/Route: 9 unit Protocol Text: If the corrective scale dose has been administered within the past 4 hours, do not use corrective scale again unless otherwise directed insulin glargine [Lantus Solostar U-100 Insulin] 100 unit/mL (3 mL) Insulin Pen 32 units subcut DAILY 30 Days Qty: 9.6 0RF olanzapine 5 mg tablet 5 mg PO HS Patient Comments: TAKE 1 TABLET BY MOUTH NIGHTLY ondansetron 4 mg tablet,disintegrating 4 mg PO Q8H PRN (Reason: Nausea) Patient Comments: TAKE 1 TABLET BY MOUTH EVERY 8 HOURS NEEDED FOR NAUSEA and FOR VOMITING nitrofurantoin monohyd/m-cryst 100 mg capsule 100 mg PO BID Patient Comments: TAKE 1 CAPSULE BY MOUTH TWICE DAILY FOR 5 DAYS Discontinued duloxetine 60 mg Capsule,Delayed Release(Dr/Ec) 60 mg PO QHS 30 Days Qty: 30 0RF duloxetine 60 mg Capsule,Delayed Release(Dr/Ec) 60 mg PO DAILY 15 Days Qty: 15 1RF Follow Up: [facility] [Outside] - 02/02/23 10:15 am (You have a follow up appointment with [facility] on Thursday, February 02, 2023 at 10:15am. This will be a phone call appointment with a child support case officer, please have your phone available around this time. At this time further appointments will be made.) [facility] Hotline [Outside] Skye Jones APRN, FACTORY EXPERT-C [Primary Care Provider] - (Contact your primary careprovider with any medical needs. ) Documented By: Maxim Pinto MD 02/01/23 1102 Signed By: <Electronically signed by Maxim Pinto MD> 02/01/23 1112 [facility] Work Phone: [phone]) 482-716508-05-2023 Progress note Author Maxim Pinto [facility] January 31, 2023 12:16pm Note Date/Time January 31, 2023 12: 16pm [facility] [address] [place] [address] Psychiatry Progress Note Signed Patient: Gisel Carlton MR#: [id number] : 1975 Acct:[id number] Age/Sex: 47 / F Adm Date: 3 Loc: Room: [address] [place] [address] Type : ADM IN Attending Dr: Yves Dukes MD Copies to: ~ Date of Service: 01/31/2023 Subjective Subjective Narrative: Gisel reported that she is doing okay. She stated that she was switched to Effexor. She reported that she has been still experiencing some depression and anxiety. A lot of her issues are related to social stressors. She reported that she slept well overnight and appetite has been improving. She still reported some vague suicidality. Mental Status Exam: Appearance: grossly normal Mental Status: mental status grossly normal Mood: Depressed mood Affect: Dysphoric and anxious Speech and Movement: speech and movement normal and speech clear Attitude: cooperative Thought Process: normal Thought Content: Denied hallucinations, no homicidality, reported vague suicidality Insight: fair Judgment: fair Exam Physical Exam Vital Signs: Temp Pulse Resp BP Pulse Ox O2 Del Method 97.6 F 89 16 151/93 H 93 L Room Air 01/31/23 07:30 01/31/23 07:30 01/31/23 07:30 01/31/23 07:30 01/31/23 07:30 01/31/23 07:30 Assessment/Plan Assessment/Plan (1) Suicidal ideation: Code(s): R45.851 - Suicidal ideations Status: Acute (2) Major depressive disorder, recurrent: Code(s): F33.9 - Major depressive disorder, recurrent, unspecified Status: Acute Plan Patient reporting some depression and suicidality Continue Effexor 75 mg at this time, continue Abilify 10 mg and trazodone 200 mgqHS Continue to monitor mental status Encourage group participation and medication compliance Risk benefits alternatives explained Documented By: Maxim Pinto MD 01/31/23 1214 Signed By: <Electronically signed by Maxim Pinto MD> 01/31/23 1216 [facility] Work Phone: [phone]) 859-764408-04-2023 Progress note Author Braulio argueta [facility] January 30, 2023 6:58am Note Date/Time January 30, 2023 6:5 5am [facility] [address] [place] [address] Psychiatry Progress Note Signed Patient: Gisel Carlton MR#: [id number] : 1975 Acct:[id number] Age/Sex: 47 / F Adm Date: 3 Loc: Room: [address] [place] [address] Type : ADM IN Attending Dr: Yves Dukes MD Copies to: ~ Date of Service: 01/30/2023 Subjective Subjective Narrative: Gisel presented as anxious and sad. She reports a longstanding history of depression manifested as 5 recent hospitalizations (since November, the most recent being 2 weeks ago) for depression and suicidal ideation. She reports that her depression is constant. She is still struggling with depression and feels lonely. She said her body wants to cry but the medicine won't let her. She tolerated Effexor and denied any side effects. She reports reduction of her SI since her admission. She said her SI typically increases when she is out. She wants to apply for jobs when discharged. Mental status: Grossly normal Mood: Tearful and sad Affect: Sad, stressed Speech and movement: Normal Attitude: Cooperative, engaged Thought process: Normal Thought content: +ve for intermittent Suicidal thoughts, hopelessness and deniedAVH or paranoid Insight: Intact Judgment: Intact Exam Physical Exam Vital Signs: Temp Pulse Resp BP Pulse Ox O2 Del Method 97.7 F 95 H 18 102/70 96 Room Air 01/29/23 20:00 01/29/23 20:00 01/29/23 20:00 01/29/23 20:00 01/29/23 20:00 01/29/23 20:00 Assessment/Plan Assessment/Plan (1) Suicidal ideation: Code(s): R45.851 - Suicidal ideations Status: Acute (2) Major depressive disorder, recurrent: Code(s): F33.9 - Major depressive disorder, recurrent, unspecified Status: Acute Plan Patient reports feeling depressed and has intermittent SI. Increase Effexor to 75 mg PO Q daily help with depression Monitor suicidal behaviors for safety of self (15-minute face check). Recommend attending groups and psychoeducation for building coping skills. Risks, benefits and indications of medications were discussed with the patient. The patient verbalized understanding. No abnormal movements noted on exam. AIMS is Zero. Involve friends/family members to coordinate care and ensure appropriate outpatient appointments are scheduled prior to discharge. Documented By: Braulio Dukes MD 3 0655 Signed By: <Electronically signed by Braulio Dukes MD> 01/30/23 0658 [facility] Work Phone: [phone]) 582-883108-03-2023 History and physical note Author Braulio argueta [facility] January 29, 2023 2:12pm Note Date/Time January 29, 2023 2:1 2pm [facility] [address] [place] [address] Psychiatry H&P Signed Patient: Gisel Carlton MR#: [id number] : 1975 Acct:[id number] Age/Sex: 47 / F Adm Date: 3 Loc: Room: [address] [place] [address] Type: ADM IN Attending Dr: Yves Dukes MD Copies to: MD Skye Perales, CERTIFIED PROSTHETIST VICE PRESIDENT, DIRECTOR OF PHOTOGRAPHY~ Date of Service: 01/29/2023 HPI History of Present Illness History of present illness: This is a 47-year-old female with reported history of depression who presents for inpatient admission due to worsening of suicidial ideation and depressed feelings. Reportedly, Pt states that she came to the hospital last night due to right kidney pain but mostly just depressed and admitted to being depressed for a couple of years. At the time of the interview Gisel presented as tearful and sad. She reports a longstanding history of depression manifested as 5 recent hospitalizations (since November, the most recent being 2 weeks ago) for depression and suicidal ideation. She reports that her depression is constant. Patient was personally seen by me on the day of the encounter. I reviewed the history and performed the baez elements of the assessment. I formulated the planof care and confirmed this with the resident as noted below The patient reports that she recently feels as though she has lost everything ,marking her diagnosis with COVID in 2019, leaving her in 2019, losing her house, vehicles, apartment, job, peace and privacy , living with her parents, four recent surgeries, injuries, and internal family conflict with her seven siblings as very large sources of stress. She states that she cares for her mother (who has parkinson's) at home by doing housework and bringing her to appointments, but reports that her siblings recently criticized her and her level of contribution to her parents. She states that this is the major reason for her recent increase in depressed feelings. She states that the only practices that have improved her feelings are walking and meeting with her day treatmentgroup, though she states this is difficult to do as she does not currently have a vehicle. Past psych history: Reports following with day treatment program in [place] and is supposed to meet with a Fanny there, but has not. Denies previously being diagnosed with any psychiatric illnesses but admits to longstanding feelings of depression. Past hospitalizations: 5 hospitalizations since November, most recent two weeks ago. Past suicide attempts: Denies previous attempts, admits previous ideation. Family psych history: Denies history of psychiatric illness in family. Previous medications: Aripirazole, duloxetine, gabapentin, hydroxyzine pamoate, olanzapine, trazadone, venlaxafine Alcohol and drug use: Denies current/history of substance use. Living: Reports living with mother and father at home. Reports recent stress in regard to living situation, with siblings criticizing her for not doing enough their parents. 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 Relationships: Reports recent serious relationship but states that her partneris uncommitted and leaves her feeling lonely. Mental status: Grossly normal Mood: Tearful and sad Affect: Sad, stressed Speech and movement: Normal Attitude: Cooperative, engaged Thought process: Normal Thought content: Suicidal thoughts, hopelessness and denied AVH or paranoid Insight: Intact Judgment: Intact Review of systems - Admits to congestion in nose and heart racing with her anxiety, occurring as recently as last night Constitutional: Denies Fatigue, malaise. Neuro: Denies seizure, numbness/tingling in extremities HEENT: Denies vision/hearing changes. Pulmonary: Denies SOB, dyspnea, cough, wheezing. Cardiac: Denies Chest pain/pressure. GI: Denies Abdominal pain, N/V, constipation and diarrhea : Denies Dysuria, hematuria, polyuria. Physical exam General: In some distress Skin: Intact HEENT: Head atraumatic, face symmetrical. Pulm: Some coughing with lung auscultation. Lungs clear to auscultation bilaterally Cardio: Regular rate and rhythm Musculoskeletal: Moves all extremities. Neuro: Patient alert, oriented x3. Gait normal. CN II: visual faulkner intact CN III, IV, : EOM intact, no nystagmus. CN V: sensation intact to light touch. CN VII: raises eyebrows, smile/frown, puff out cheeks symmetrically. CN VIII: hearing intact bilaterally. CN IX, X: Voice normal, soft palate elevation normal, symmetrical. CN XI: Shoulder shrug strong, equal bilaterally. CN XII: Tongue protrusion midline Review of Systems Constitutional Constitutional: Denies fatigue, Denies fever(s) and Denies weight loss Eyes Eyes: Denies change in vision and Denies eye pain ENT Ears, Nose, Mouth, and Throat: Denies ear discharge, Denies otalgia, Denies nasal discharge and Denies nose pain Cardiovascular Cardiovascular: Denies chest pain Comments: admits feelings of heart racing with anxiety Respiratory Respiratory: Denies cough, Denies dyspnea and Denies wheezing Gastrointestinal Gastrointestinal: Denies abdominal pain, Denies change in bowel habits, Denies constipation and Denies vomiting Genitourinary Genitourinary: Denies difficulty voiding and Denies dysuria Neurologic Neurologic: Denies paresthesias and Denies seizure-like activity [facility] Vaccinated for COVID-19?: Unknown Medical History (Updated 01/29/23 @ 01:51 by Vivek Ceballos Jr, MD) Carpal tunnel syndrome, bilateral Chronic GERD COVID-19 Diabetes Diabetic gastroparesis Hernia of abdominal wall Hyperlipemia Hypertension Hypothyroid Kidney calculi Leg fracture, right Torn rotator cuff RIGHT Surgical History H/O lithotripsy H/O: hysterectomy History of cholecystectomy History of renal stent History of tonsillectomy and adenoidectomy Hx of hand surgery right hand, trigger finger Hx of hand surgery Left 09/01/2022 - trigger finger release Family History (Updated 01/29/23 @ 02:35 by Sharon Cox LPN) Father Heart disease Mother Parkinsons disease Mother Hypertension Social History Smoking Status: Never smoker Substance Use Type: None Social History Comments: Lives with mom and dad, and her 22 y/o son Meds Medications and Allergies Allergies ketorolac [From Toradol] Allergy (Verified 01/28/23 20:06) Hives melon Allergy (Verified 01/28/23 20:06) Swelling meperidine [From Demerol] Allergy (Verified 01/28/23 20:06) Hives morphine Allergy (Verified 01/28/23 20:06) Unknown Reaction nalbuphine [From Nubain] Allergy (Verified 01/28/23 20:06) Hives Penicillins Allergy (Verified 01/28/23 20:06) Hives Home Medications omeprazole 20 mg capsule,delayed release 20 mg PO DAILY 09/13/18 [History Confirmed 01/29/23] metoprolol tartrate 25 mg tablet 50 mg PO BID 12/21/19 [History Confirmed 01/29/23] tizanidine 4 mg tablet 4 mg PO TID PRN Pain 04/23/20 [History Confirmed 01/29/23] gabapentin 600 mg tablet 600 mg PO TID 08/02/22 [History Confirmed 01/29/23] rosuvastatin 20 mg tablet 20 mg PO DAILY 08/02/22 [History Confirmed 01/29/23] polyethylene glycol 3350 17 gram oral powder packet (Miralax) 17 g PO DAILY PRN Constipation #1 ea 11/27/22 [Rx Confirmed 01/29/23] celecoxib 200 mg capsule 200 mg PO DAILY 12/06/22 [History Confirmed 01/29/23] insulin aspart U-100 100 unit/mL (3 mL) subcutaneous pen (Novolog FlexPen U-100 Insulin aspart) 20 unit subcut TID.AC 12/06/22 [History Confirmed 01/29/23] loratadine 10 mg tablet 10 mg PO DAILY 12/06/22 [History Confirmed 01/29/23] duloxetine 60 mg capsule,delayed release 60 mg PO QHS 30 days #30 caps 12/10/22 [Rx Confirmed 01/29/23] trazodone 100 mg tablet 200 mg PO HS 30 days #60 tabs 12/10/22 [Rx Confirmed 01/29/23] insulin aspart U-100 100 unit/mL (3 mL) subcutaneous pen (Novolog FlexPen U-100 Insulin aspart) See Protocol subcut ACHS 12/14/22 [History Confirmed 01/29/23] duloxetine 60 mg capsule,delayed release 60 mg PO DAILY 15 days #15 caps 01/03/23 [Rx Confirmed 01/29/23] insulin glargine 100 unit/mL (3 mL) subcutaneous pen (Lantus Solostar U-100 Insulin) 32 units (0.32 mL) subcut DAILY 30 days #9.6 mL 01/03/23 [Rx Confirmed 01/29/23] hydroxyzine pamoate 50 mg capsule 50 mg PO Q6H PRN Anxiety 01/18/23 [History Confirmed 01/29/23] levothyroxine 50 mcg tablet 50 mcg PO DAILY.0630 #90 tabs 01/18/23 [Rx Confirmed 01/29/23] aripiprazole 10 mg tablet 10 mg PO QHS 30 days #30 tabs 01/22/23 [Rx Confirmed 01/29/23] metoclopramide HCl 5 mg tablet 5 mg PO TID.AC PRN nausea #30 tabs 01/22/23 [Rx Confirmed 01/29/23] promethazine 25 mg tablet 25 mg PO Q6H PRN Nausea/Vomiting #0 tabs 01/22/23 [Rx Confirmed 01/29/23] nitrofurantoin monohydrate/macrocrystals 100 mg capsule 100 mg PO BID 01/29/23 [History Confirmed 01/29/23] olanzapine 5 mg tablet 5 mg PO HS 01/29/23 [History Confirmed 01/29/23] ondansetron 4 mg disintegrating tablet 4 mg PO Q8H PRN Nausea 01/29/23 [History Confirmed 01/29/23] Exam Physical Exam Vital Signs: Temp Pulse Resp BP Pulse Ox O2 Del Method 97.8 F 107 H 18 133/84 97 Room Air 01/29/23 02:43 01/29/23 02:43 01/29/23 02:43 01/29/23 02:43 01/29/23 02:43 01/29/23 02:43 Const General: cooperative and comfortable Orientation: alert, awake and oriented x3 HEENT Head: normal to inspection Ears: hearing grossly normal bilaterally Eyes Visual Faulkner: normal visual faulkner by confrontation EOM: EOM intact bilaterally Resp Effort & Inspection: cough Auscultation: clear to auscultation bilaterally Cardio Rate: regular rate Rhythm: regular rhythm Skin General: no rashes or lesions noted Neuro General: patient alert, patient awake and patient oriented x3 Cranial Nerves: CN's II-XII intact bilaterally Cognition: normal cognition Speech: speech normal Gait: normal gait Psych Appearance: grossly normal Mental Status: mental status grossly normal Mood: other (tearful and sad) Affect: tearful Speech and Movement: speech and movement normal Attitude: cooperative Thought Process: normal Thought Content: suicidality Insight: insight good Judgment: judgment good Results Labs 01/28/23 23:03 01/28/23 23:03 Psychiatry Labs: 01/28/23 01/28/23 01/28/23 20:13 23:03 23:03 RBC 4.42 Hgb 13.0 Hct 37.8 MCV 85.5 MCH 29.4 MCHC 34.4 RDW 13.0 Plt Count 202 MPV 6.6 Sodium 141 Potassium 3.8 Chloride 104 Carbon Dioxide 31.8 H Anion Gap 9.0 BUN 18 Creatinine 0.72 Calcium 9.2 Total Bilirubin 0.3 AST 16 ALT 23 Alkaline Phosphatase 73 Total Protein 7.3 Albumin 4.0 Urine Color [place] A Urine Appearance Cloudy A Urine pH 6.5 Ur Specific [place] 1.023 Urine Protein Trace H Urine Glucose (UA) Normal Urine Ketones Trace H Urine Occult Blood 3+ H Urine Nitrite Negative Ur Leukocyte Esterase 3+ H Urine RBC Innumerable H Urine WBC 10-19 H Assessment/Plan (1) Suicidal ideation: Code(s): R45.851 - Suicidal ideations Status: Acute (2) Major depressive disorder, recurrent: Code(s): F33.9 - Major depressive disorder, recurrent, unspecified Status: Acute Plan Admit to for management of depression and to ensure safety of self due to SI. Switch Cymbalta to Effexor to help with depression Monitor suicidal behaviors for safety of self (15-minute face check). Recommend attending groups and psychoeducation for building coping skills. Risks, benefits and indications of medications were discussed with the patient. The patient verbalized understanding. No abnormal movements noted on exam. AIMS is Zero. Involve friends/family members to coordinate care and ensure appropriate outpatient appointments are scheduled prior to discharge. Documented By: Braulio Dukes MD [id number] Signed By: <Electronically signed by Braulio Dukes MD> 01/29/23 1412 [facility] Work Phone: [phone]) 958-910507-31-2023 Hospital Discharge instructions Patient Education 01/26/2023 21:28:21 Urinary Tract Infection, Adult Urinary Tract Infection, Adult A urinary tract infection (UTI) is an infection of any part of the urinary tract. The urinary tractincludes the kidneys, ureters, bladder, and urethra. These organs make, store, and get rid of urinein the body. An upper UTI affects the ureters and kidneys. A lower UTI affects the bladder and urethra. What are the causes? Most urinary tract infections are caused by bacteria in your genital area around your urethra, where urine leaves your body. These bacteria grow and cause inflammation of your urinary tract. What increases the risk? You are more likely to develop this condition if: You have a urinary catheter that stays in place. You are not able to control when you urinate or have a bowel movement (incontinence). You are female and you: ?Use a spermicide or diaphragm for control. ?Have low estrogen levels. ?Are . You have certain genes that increase your risk. You are sexually active. You take antibiotic medicines. You have a condition that causes your flow of urine to slow down, such as: ?An enlarged prostate, if you are male. ?Blockage in your urethra. ?A kidney stone. ?A nerve condition that affects your bladder control (neurogenic bladder). ?Not getting enough to drink, or not urinating often. You have certain medical conditions, such as: ?Diabetes. ?A weak disease-fighting system (immunesystem). ?Sickle cell disease. ?Gout. ?Spinal cord injury. What are the signs or symptoms? Symptoms of this condition include: Needing to urinate right away (urgency). Frequent urination. This may include small amounts of urine each time you urinate. Pain or burning with urination. Blood in the urine. Urine that smells bad or unusual. Trouble urinating. Cloudy urine. Vaginal discharge, if you are female. Pain in the abdomen or the lower back. You may also have: Vomiting or a decreased appetite. Confusion. Irritability or tiredness. A fever or chills. Diarrhea. The first symptom in older adults may be confusion. In some cases, they may not have any symptoms until the infection has worsened. How is this diagnosed? This condition is diagnosed based on your medical history and a physical exam. You may also have other tests, including: Urine tests. Blood tests. Tests for STIs (sexually transmitted infections). If you have had more than one UTI, a cystoscopy or imaging studies may be done to determine the cause of the infections. How is this treated? Treatment for this condition includes: Antibiotic medicine. Oknu-fet-xvtywfl medicines to treat discomfort. Drinking enough water to stay hydrated. If you have frequent infections or have other conditions such as a kidney stone, you may need to see a health care provider who specializes in the urinary tract (urologist). In rare cases, urinary tract infections can cause sepsis. Sepsis is a life- threatening condition that occurs when the body responds to an infection. Sepsis is treated in the hospital with IV antibiotics, fluids, and other medicines. Follow these instructions at home: Medicines Take [id number]-ofispbw and prescription medicines only as told by your health care provider. If you were prescribed an antibiotic medicine, take it as told by your health care provider. Do notstop using the antibiotic even if you start to feel better. General instructions Make sure you: ?Empty your bladder often and completely. Do not hold urine for long periods of time. ?Empty your bladder after sex. ?Wipe from front to back after urinating or having a bowel movement if you are female. Use each tissue only one time when you wipe. Drink enough fluid to keep your urine pale yellow. Keep all follow-up visits. This is important. Contact a health care provider if: Your symptoms do not get better after 1 2 days. Your symptoms go away and then return. Get help right away if: You have severe pain in your back or your lower abdomen. You have a fever or chills. You have nausea or vomiting. Summary A urinary tract infection (UTI) is an infection of any part of the urinary tract, which includes the kidneys, ureters, bladder, and urethra. Most urinary tract infections are caused by bacteria in your genital area. Treatment for this condition often includes antibiotic medicines. If you were prescribed an antibiotic medicine, take it as told by your health care provider. Do notstop using the antibiotic even if you start to feel better. Keep all follow-up visits. This is important. This information is not intended to replace advice given to you by your health care provider. Make sure you discuss any questions you have with your health care provider. Document Revised: 01/25/2021 Document Reviewed: 01/25/2021 [employer] Patient Education 2022 [email or web address]. Follow Up Care 01/26/2023 19:08:33 With:SKYE JONES Address: [address] [place] [address] 6 [place] [address]- [phone] Business (1) When:Within 3 Day(s) [facility]07-31-2023 Evaluation + Plan noteExtracted from: Title:ED Note Author:Grey Putnam DO Date :01/26/23 Acute UTI (N39.0: Urinary tr act infection, site not specified) Orders: acetaminophen-oxycodone, 1 tab(s), Tab, Oral, Once, Stop date 01/26/23 21:10:00 EDT, STAT, Start date 01/26/23 21:10:00 EDT HYDROmorphone, 0.5 mg = 0.5 mL, Injection, IV Push, Once, Stop date 01/26/23 20:03:00 EDT, STAT, Start date 01/26/23 20:03:00 EDT, 01/26/23 20:03:00 EDT nitrofurantoin, 100 mg = 1 cap(s), Cap, Oral, Once, Stop date 01/26/23 21:11:00 EDT, STAT, Start date 01/26/23 21:11:00 EDT, 01/26/23 21:11:00 EDT nitrofurantoin, 100 mg = 1 cap(s), Oral, BID, X 5 day(s), # 10 cap(s), Refills(s) 0, Pharmacy: [id number], 170.2, cm, 01/26/23 19:25:00 EDT, Height/Length Dosing, 123, kg, 01/26/23 19:25:00 EDT, Weight Dosing ondansetron, 4 mg = 1 tab(s), Oral, q8hr, PRN Nausea/Vomiting, # 16 tab(s), Refills(s) 0, Pharmacy: [id number], 170.2, cm, 01/26/23 19:25:00 EDT, Height/Length Dosing, 123, kg, 01/26/23 19:25:00 EDT, Weight Dosing ondansetron, 4 mg = 2 mL, Injection, IV Push, Once, Stop date 01/26/23 20:03:00 EDT, STAT, Start date 01/26/23 20:03:00 EDT, 01/26/23 20:03:00 EDT Sodium Chloride 0.9% intravenous solution, 1,000 mL, Soln-IV, IV, Once, Stop date 01/26/23 20:03:00 EDT, STAT, Start date 01/26/23 20:03:00 EDT, Infuse over 61, minute(s) Automated Diff Basic Metabolic Panel Capillary Glucose POC CBC w/ Auto Diff eGFR Extra Blue Tube Extra SST Tube Hepatic Function Panel Lipase Level Saline Lock Insert U Beta Hcg Qual UA With Cult Reflex Urine Culture Diagnostic Tests Pending * Urine Culture 01/26/23 [facility]07-27-2023 Discharge summary Author Maxim Pinto [facility] January 22, 2023 11:55am Note Date/Time January 22, 2023 10:5 1am [facility] [address] [place] [address] Discharge Summary Signed Patient: Gisel Carlton MR#: [id number] : 1975 Acct:[id number] Age/Sex: 47 / F Adm Date: 3 Loc: 1S Room: [address] [place] [address]: Yves Dukes MD Copies to: MD Maxim Perales MD Nicole E Leach, CERTIFIED PROSTHETIST VICE PRESIDENT, DIRECTOR OF PHOTOGRAPHY~ Providers Date of Discharge: 01/22/23 Discharging Provider: aMxim Pinto Primary Care Provider: Skye Jones Consults: 01/18/23 05:20 Consult to Case Management Routine 01/18/23 07:16 Consult to Adult Hospitalist Routine Discharge Diagnosis (1) Major depressive disorder, recurrent: Final Diagnosis Final Discharge Diagnosis: Major depressive disorder Summary Hospital Course Hospital course: According to admission note: Ms. Carlton is a 47 year old female who presented due to concern for depression and suicidal ideation with plans to cut her wrist over jump into traffic. At the time of the interview, she presented as depressed. She reports a longstanding history of depression and has been feeling overwhelmed.? depressed mood most of the day every day, decreased interest in activities normally enjoyed, low energy and fatigue throughout the day even when sleeping adequately, feelings of worthlessness, guilt for no reason, and poor focus and concentration in routine activities. The patient described sleep as poor and admits to having SI. She said her mom has Parkinson's disease and she is her maitre d. She describedher as trigger as she is needy . Patient feels upset because her mom criticizes her all the time.? She also endorses symptoms of caregiver burnout.? Patient was thinking about moving to [place] to be with her BF and? feels upsetstating this plan fell through. She reported that things at her house have been very tense.?Her biological dad two years. Step dad is quiet and laid back. She said he is working all the time and does not intervene between her and the mother.? She reported that she was having suicidal thoughts to jump in front of a moving vehicle or cutting her wrist but currently contracts for safety.? She does not feel that her medication needs to be adjusted indicating that her depression is a result of psychosocial stressors and poor home environment She described 1S as a comfortable environment and a safe zone.? Pertinent diagnostics include elevatedTSH and therefore will consult hospitalist. Past psych history: Depression Past hospitalizations: Prior psychiatric hospitalizations Past suicide attempts: Past attempt 1 year ago attempting to jump from a runningcar Previous medications: Cymbalta Alcohol and drug use: Denied any significant issues.? Urine was positive for benzos Patient was continued on Cymbalta. Zyprexa was switched to Abilify during her hospitalization. She tolerated the medication without any problems and did not report any side effects. She had gradual improvement of her symptoms of depression as time went on. She was seen by the hospitalist due to abdominal pain and things were given to help with her abdominal pain. Her sleep improved slightly during hospitalization. She did not have any further issues with depression or suicidality. She did not exhibit any behavior concerning for suicidality during hospital course. She did not have any conflict with peers khadra. She attended groups and seem to socialize well with them. On the day ofdischarge, she reported she was feeling better. She denied any depression or suicidality. She stated that she was good with his discharge plan home and following up with outpatient services. Condition Condition at Discharge: Stable Status at Discharge Cognitive/behavioral status at discharge: Mental Status Exam: Appearance: grossly normal Mental Status: mental status grossly normal Mood: Euthymic mood Affect: Normal affect Speech and Movement: speech and movement normal and speech clear Attitude: cooperative Thought Process: normal Thought Content: Denied hallucinations, no homicidality and no suicidality Insight: Good Judgment: Good Functional status at discharge: independent ambulation Overall status at discharge: patient is back to baseline Time Spent with Patient Time spent providing/coordinating discharge services (# min): 30 Exam Physical Exam Vital Signs: Temp Pulse Resp BP Pulse Ox O2 Del Method 97.3 F L 89 16 150/97 H 95 Room Air 01/22/23 07:27 01/22/23 07:27 01/22/23 07:27 01/22/23 07:27 01/22/23 07:27 01/22/23 07:27 Discharge Plan Discharge Plan Patient Disposition: Home Activity: No Activity Restriction Diet: Diabetic Additional Instructions: Diabetic Diet No Activity Restrictions Instructions: Depression, Adult (DC), Hypothyroidism (Underactive Thyroid) (DC), Gastroparesis (Delayed Gastric Emptying) (DC), Metoclopramide, [facility] [place] Instructions Prescriptions: New levothyroxine 50 mcg Tablet 50 mcg PO DAILY.0630 Qty: 90 0RF metoclopramide HCl 5 mg Tablet 5 mg PO TID.AC PRN (Reason: nausea) Qty: 30 0RF promethazine 25 mg Tablet 25 mg PO Q6H PRN (Reason: Nausea/Vomiting) Qty: 0 0RF aripiprazole 10 mg Tablet 10 mg PO QHS 30 Days Qty: 30 0RF Continued omeprazole 20 mg Capsule,Delayed Release(Dr/Ec) 20 mg PO DAILY tizanidine 4 mg tablet 4 mg PO TID PRN (Reason: Pain) Patient Comments: TAKE 1 TABLET BY MOUTH EVERY 6 HOURS NEEDED FOR MUSCLE SPASMS gabapentin 600 mg tablet 600 mg PO TID Patient Comments: TAKE 1 TABLET BY MOUTH THREE TIMES DAILY rosuvastatin 20 mg tablet 20 mg PO DAILY Patient Comments: TAKE 1 TABLET BY MOUTH ONCE DAILY celecoxib 200 mg capsule 200 mg PO DAILY Patient Comments: TAKE 1 CAPSULE BY MOUTH DAILY loratadine 10 mg tablet 10 mg PO DAILY Patient Comments: TAKE 1 TABLET BY MOUTH DAILY insulin aspart U-100 [Novolog FlexPen U-100 Insulin] 100 unit/mL (3 mL) insulin pen 20 unit SUBCUT TID.AC Patient Comments: INJECT 35 UNITS SUBCUTANEOUSLY THREE TIMES DAILY BEFORE MEALS trazodone 100 mg Tablet 200 mg PO HS 30 Days Qty: 60 0RF duloxetine 60 mg Capsule,Delayed Release(Dr/Ec) 60 mg PO QHS 30 Days Qty: 30 0RF hydroxyzine pamoate 50 mg capsule 50 mg PO Q6H PRN (Reason: Anxiety) Patient Comments: TAKE 1 CAPSULE BY MOUTH FOUR TIMES DAILY NEEDED FOR ANXIETY metoprolol tartrate 25 mg tablet 50 mg PO BID Patient Comments: TAKE 1 TABLET BY MOUTH TWICE DAILY polyethylene glycol 3350 [Miralax] 17 gram powder in packet 17 g PO DAILY PRN (Reason: Constipation) Qty: 1 0RF Rx Instructions: mix into 4-8 oz. of any hot/cold/room temp. beverage; use immediately insulin aspart U-100 [Novolog FlexPen U-100 Insulin] 100 unit/mL (3 mL) insulin pen See Protocol SUBCUT ACHS Protocol: Corrective Scale #2 Condition: 150-199 mg/dL Dose/Route: 2 unit Condition: 200-249 mg/dL Dose/Route: 3 unit Condition: 250-299 mg/dL Dose/Route: 5 unit Condition: 300-349 mg/dL Dose/Route: 7 unit Condition: 350-399 mg/dL Dose/Route: 8 unit Condition: greater than or = 400 mg/dL Dose/Route: 9 unit Protocol Text: If the corrective scale dose has been administered within the past 4 hours, do not use corrective scale again unless otherwise directed duloxetine 60 mg Capsule,Delayed Release(Dr/Ec) 60 mg PO DAILY 15 Days Qty: 15 1RF insulin glargine [Lantus Solostar U-100 Insulin] 100 unit/mL (3 mL) Insulin Pen 32 units subcut DAILY 30 Days Qty: 9.6 0RF Discontinued Mounjaro 2.5 mg/0.5 mL pen injector 2.5 mg SUBCUT QWEEK Patient Comments: INJECT 1 SYRINGE SUBCUTANEOUSLY ONCE A WEEK, MONDAYS HAS NOT TAKEN IN OVER A MONTH AND HAVING SIDE EFFECTS promethazine 25 mg tablet 25 mg PO HS olanzapine 5 mg tablet 5 mg PO HS Patient Comments: TAKE 1 TABLET BY MOUTH NIGHTLY Other Ambulatory Orders: Free T4 (Free Thyroxine) (Routine) Timeframe: 20230303 Location: Determined by Patient Ordered By: Bertha Taylor Thyroid Stimulating Hormone (Routine) Timeframe: 20230303 Location: Determined by Patient Ordered By: Bertha Taylor Follow Up: [facility] [Outside] [facility] [Outside] Skye Jones APRN, FACTORY EXPERT-C [Primary Care Provider] - (follow up post hospitalization next 1-2 weeks with med changes, also need labs for thyroid 6-8 weeks) Documented By: Maxim Pinto MD 01/22/23 1054 Signed By: <Electronically signed by Maxim Pinto MD> 01/22/23 1389 [facility] Work Phone: 1(932) 558-436007-26-2023 Progress note Author Maxim Pinto [facility] January 21, 2023 12:42pm Note Date/Time January 21, 2023 12:4 2pm [facility] [address] [place] [address] Psychiatry Progress Note Signed Patient: Gisel Carlton MR#: [id number] : 1975 Acct:[id number] Age/Sex: 47 / F Adm Date: 3 Loc: Room: [address] [place] [address] Type : ADM IN Attending Dr: Yves Dukes MD Copies to: ~ Date of Service: 01/21/2023 Subjective Subjective Narrative: Ms. Carlton reported that she is feeling a bit better today. She reported that she is not as depressed and does not have the urge to cry anymore. She denied any current suicidal thoughts. She reported that her appetite is still low if she is dealing with some abdominal pain which worsens on eating. She denied anyside effects current medications. Mental Status Exam: Appearance: grossly normal Mental Status: mental status grossly normal Mood: Improving mood Affect: Improving affect Speech and Movement: speech and movement normal and speech clear Attitude: cooperative Thought Process: normal Thought Content: Denied hallucinations, no homicidality, no suicidality Insight: fair Judgment: fair Exam Physical Exam Vital Signs: Temp Pulse Resp BP Pulse Ox O2 Del Method 98 F 102 H 18 120/88 93 L Room Air 01/21/23 07:30 01/21/23 07:30 01/21/23 07:30 01/21/23 07:30 01/21/23 07:30 01/20/23 20:00 Objective Labs Labs: Abnormal Labs 01/20/23 01/20/23 16:21 16:37 POC Glucose 56 L* 54 L* Assessment/Plan Assessment/Plan (1) Major depressive disorder, recurrent: Code(s): F33.9 - Major depressive disorder, recurrent, unspecified Status: Acute Plan Patient improving denied current suicidality. Will anticipate discharge or Thursday We will touch base with hospitalist about abdominal pain Continue Cymbalta 60 mg twice a day, Abilify 10 mg Continue to monitor mental status Encourage group participation and medication compliance Risk benefits alternatives explained Documented By: Maxim Pinto MD 01/21/231240 Signed By: <Electronically signed by Maxim Pinto MD> 01/21/231241 [facility] Work Phone: 1(151) 110-168707-25-2023 Progress note Author Maxim Pinto [facility] January 20, 2023 12:19pm Note Date/Time January 20, 2023 12:1 9pm [facility] [address] [place] [address] Psychiatry Progress Note Signed Patient: Gisel Carlton MR#: [id number] : 1975 Acct:[id number] Age/Sex: 47 / F Adm Date: 3 Loc: Room: [address] [place] [address] Type : ADM IN Attending Dr: Yves Dukes MD Copies to: ~ Date of Service: 01/20/2023 Subjective Subjective Narrative: Ms. Carlton reported that she is feeling a little bit better today. She stated that she did have some difficulty with her sleep. She reported some side effectof tiredness this morning. She stated that her abdominal pain has been improving and she did see the hospitalist yesterday. Mental Status Exam: Appearance: grossly normal Mental Status: mental status grossly normal Mood: Improving mood Affect: Improving affect Speech and Movement: speech and movement normal and speech clear Attitude: cooperative Thought Process: normal Thought Content: Denied hallucinations, no homicidality, improving suicidality Insight: fair Judgment: fair Exam Physical Exam Vital Signs: Temp Pulse Resp BP Pulse Ox O2 Del Method 97.6 F 97 H 18 123/68 96 Room Air 01/20/23 07:30 01/20/23 07:30 01/20/23 07:30 01/20/23 07:30 01/20/23 07:30 01/20/23 09:00 Objective Labs Labs: Abnormal Labs 01/19/23 01/19/23 12:51 12:51 Eos # (Auto) 0.7 H Carbon Dioxide 33.2 H Glucose 158 H Assessment/Plan Assessment/Plan (1) Major depressive disorder, recurrent: Code(s): F33.9 - Major depressive disorder, recurrent, unspecified Status: Acute Plan Patient reported some minor improvement with symptoms Continue Cymbalta 60 mg twice a day, Abilify 10 mg Continue to monitor mental status Encourage group participation and medication compliance Risk benefits alternatives explained Documented By: Maxim Pinot MD 01/20/23 1218 Signed By: <Electronically signed by Maxim Pinto MD> 01/20/23 1219 [facility] Work Phone: 1(979) 371-595907-24-2023 Progress note Author Maxim Pinto [facility] January 19, 2023 1:00pm Note Date/Time January 19, 2023 12:5 8pm [facility] [address] [place] [address] Psychiatry Progress Note Signed with Joeenda Patient: Gisel Carlton MR#: [id number] : 1975 Acct:[id number] Age/Sex: 47 / F Adm Date: 3 Loc: Room: [address] [place] [address] Type : ADM IN Attending Dr: Yves Dukes MD Copies to: ~ ADDENDUM1 cymbalta currently at 60mg BID Addendum Documented By: Maxim Pinto MD 01/19/23 1300 Addendum Signed By: <Electronically signed by Maxim Pinot MD> 01/19/23 1300 Date of Service: 01/19/2023 Subjective Subjective Narrative: Ms. Carlton reported that she still feels very depressed. She reported that she feels sad all the time and just wants to cry. She stated that she has been keeping up with her medications at home but feels like things are not improving as she would like them to. She does also complain of some abdominal pain over the past day. Denies any constipation or diarrhea at this time. Mental Status Exam: Appearance: grossly normal Mental Status: mental status grossly normal Mood: dysthymic mood Affect: dysphoric affect Speech and Movement: speech and movement normal and speech clear Attitude: cooperative Thought Process: normal Thought Content: Denied hallucinations, no homicidality, reported suicidality Insight: fair Judgment: fair Exam Physical Exam Vital Signs: Temp Pulse Resp BP Pulse Ox O2 Del Method 97.7 F 89 14 116/81 96 Room Air 01/19/23 07:30 01/19/23 07:30 01/19/23 07:30 01/19/23 07:30 01/19/23 07:30 01/19/23 07:30 Assessment/Plan Assessment/Plan (1) Major depressive disorder, recurrent: Code(s): F33.9 - Major depressive disorder, recurrent, unspecified Status: Acute Plan Patient continues to report some depression and suicidal ideation Increase Cymbalta to 60 mg daily and 30 mg at bedtime We will discontinue Zyprexa and use Abilify 10 mg to adjunct depression treatment Hospitalist consult for abdominal pain Continue to monitor mental status Encourage group participation and medication compliance Risk benefits alternatives explained Documented By: Maxim Pinto MD 01/19/23 1256 Signed By: <Electronically signed by Maxim Pinto MD> 01/19/23 1258 [facility] Work Phone: 1(336) 305-323207-23-2023 Consult note Author Miko العلي [facility] January 18, 2023 3:00pm Note Date/Time January 18, 2023 12:3 7pm [facility] [address] [place] [address] Hospitalist Consult Note Signed Patient: Gisel Carlton MR#: [id number] : 1975 Acct:[id number] Age/Sex: 47 / F Adm Date: 3 Loc: 1S Room: [address] [place] [address] Type: ADM IN Attending Dr: Yves Dukes MD Copies to: MD Miko Perales MD Lynn A Stackhouse, ANP-BC Skye Jones, CERTIFIED PROSTHETIST VICE PRESIDENT, DIRECTOR OF PHOTOGRAPHY~ HPI DATE OF CONSULTATION: 01/18/23 REQUESTING PROVIDER: Yves Dukes Consult Narrative Reason for Consult: Abnormal TSH, diabetes, hypertension HPI: 47-year-old female past medical history significant for hyperlipidemia, hypertension, diabetes, nephrolithiasis. She presented to outside emergency department with mental health complaints. Transferred to [facility] for ongoing psychiatric care. Hospitalist team is now consulted for abnormal TSH as well aschronic comorbidities diabetes and hypertension. Patient seen and examined. Denies chest pain or palpitations. No cough, dyspnea, or pain with inspiration. Endoreses chronic abdominal pain causing poor intake- never been advised of gastroparesis in past and never trialed metoclopramide, chronic nausea. No constipation/ diarrhea. No dysuria or retention, reports dark urine. No headache or dizziness. No fevers or chills. Review of Systems Review of Systems All other systems reviewed & are negative unless noted below or in HPI [facility] Attestation Statement: The following information was validated with the patient. Vaccinated for COVID-19?: Unknown Medical History (Updated 01/18/23 @ 12:43 by TREY Dee-SHANIA) Carpal tunnel syndrome, bilateral Chronic GERD COVID-19 Diabetes Diabetic gastroparesis Hernia of abdominal wall Hyperlipemia Hypertension Hypothyroid Kidney calculi Leg fracture, right Torn rotator cuff RIGHT Surgical History (Updated 01/18/23 @ 12:43 by TREY Dee-BC) H/O lithotripsy H/O: hysterectomy History of cholecystectomy History of renal stent History of tonsillectomy and adenoidectomy Hx of hand surgery right hand, trigger finger Hx of hand surgery Left 09/01/2022 - trigger finger release Family History Father Heart disease Social History Smoking Status: Never smoker Substance Use Type: None Social History Comments: Lives with mom and dad, and her 22 y/o son Meds Medications and Allergies Allergies ketorolac [From Toradol] Allergy (Verified 12/05/22 21:21) Hives melon Allergy (Verified 12/14/22 12:31) Swelling meperidine [From Demerol] Allergy (Verified 12/05/22 21:21) Hives morphine Allergy (Verified 12/05/22 21:21) Unknown Reaction nalbuphine [From Nubain] Allergy (Verified 12/05/22 21:21) Hives Penicillins Allergy (Verified 12/05/22 21:21) Hives Home Medications omeprazole 20 mg capsule,delayed release 20 mg PO DAILY 09/13/18 [History Confirmed 01/18/23] metoprolol tartrate 25 mg tablet 50 mg PO BID 12/21/19 [History Confirmed 01/18/23] tizanidine 4 mg tablet 4 mg PO TID PRN Pain 04/23/20 [History Confirmed 01/18/23] gabapentin 600 mg tablet 600 mg PO TID 08/02/22 [History Confirmed 01/18/23] rosuvastatin 20 mg tablet 20 mg PO DAILY 08/02/22 [History Confirmed 01/18/23] tirzepatide 2.5 mg/0.5 mL subcutaneous pen injector (Mounjaro) 2.5 mg subcut QWEEK 08/02/22 [History Confirmed 12/31/22] polyethylene glycol 3350 17 gram oral powder packet (Miralax) 17 g PO DAILY PRN Constipation #1 ea 11/27/22 [Rx Confirmed 01/18/23] celecoxib 200 mg capsule 200 mg PO DAILY 12/06/22 [History Confirmed 01/18/23] insulin aspart U-100 100 unit/mL (3 mL) subcutaneous pen (Novolog FlexPen U-100 Insulin aspart) 20 unit subcut TID.AC 12/06/22 [History Confirmed 01/18/23] loratadine 10 mg tablet 10 mg PO DAILY 12/06/22 [History Confirmed 01/18/23] duloxetine 60 mg capsule,delayed release 60 mg PO QHS 30 days #30 caps 12/10/22 [Rx Confirmed 01/18/23] trazodone 100 mg tablet 200 mg PO HS 30 days #60 tabs 12/10/22 [Rx Confirmed 01/18/23] insulin aspart U-100 100 unit/mL (3 mL) subcutaneous pen (Novolog FlexPen U-100 Insulin aspart) See Protocol subcut ACHS 12/14/22 [History Confirmed 01/18/23] duloxetine 60 mg capsule,delayed release 60 mg PO DAILY 15 days #15 caps 01/03/23 [Rx Confirmed 01/18/23] insulin glargine 100 unit/mL (3 mL) subcutaneous pen (Lantus Solostar U-100 Insulin) 32 units (0.32 mL) subcut DAILY 30 days #9.6 mL 01/03/23 [Rx Confirmed 01/18/23] hydroxyzine pamoate 50 mg capsule 50 mg PO Q6H PRN Anxiety 01/18/23 [History Confirmed 01/18/23] levothyroxine 50 mcg tablet 50 mcg PO DAILY.0630 #90 tabs 01/18/23 [Rx] olanzapine 5 mg tablet 5 mg PO HS 01/18/23 [History Confirmed 01/18/23] promethazine 25 mg tablet 25 mg PO HS 01/18/23 [History Confirmed 01/18/23] Active Medications: Active Medications Generic Name Dose Route Start Last Admin Trade Name Freq PRN Reason Stop Dose Admin Acetaminophen 500 mg 01/18/23 03:39 Acetaminophen 500 Mg Tablet PO 01/18/24 03:38 Q6H PRN Fever or Pain Al Hydrox/Mg Hydrox/Simethicone 30 ml 01/18/23 03:39 Mag Hydrox/Al Hydrox/Simeth 30 Ml Udc PO 01/18/24 03:38 Q6H PRN Indigestion Atorvastatin Calcium 40 mg 01/18/23 09:00 01/18/23 08:23 Atorvastatin 40 Mg Tablet PO 01/18/24 08:59 40 mg DAILY FAISAL Administration Celecoxib 200 mg 01/18/23 09:00 01/18/23 08:23 Celecoxib 200 Mg Capsule PO 01/18/24 08:59 200 mg DAILY FAISAL Administration Duloxetine HCl 60 mg 01/18/23 09:00 01/18/23 08:23 Duloxetine 60 Mg Capsule.Dr LEZAMA 01/18/24 08:59 60 mg DAILY FAISAL Administration Duloxetine HCl 60 mg 01/18/23 22:00 Duloxetine 60 Mg Capsule.Dr LEZAMA 01/18/24 21:59 QHS FAISAL Gabapentin 600 mg 01/18/23 09:00 01/18/23 08:23 Gabapentin 600 Mg Tablet PO 01/18/24 08:59 600 mg TID FAISAL Administration Hydroxyzine Pamoate 50 mg 01/18/23 03:39 01/18/23 08:23 Hydroxyzine Pamoate 50 Mg Capsule PO 01/18/24 03:38 50 mg Q6H PRN Administration Anxiety Insulin Aspart 20 units 01/18/23 08:30 01/18/23 12:23 Insulin Aspart 300 Units/3 Ml Insuln.Pen SUBCUT 01/18/24 08:29 20 units TID.AC FAISAL Administration Insulin Aspart 0 units 01/18/23 08:28 01/18/23 12:24 Insulin Aspart 300 Units/3 Ml Insuln.Pen SUBCUT 01/18/24 08:27 2 units ACHS FAISAL Administration Protocol Insulin Glargine 32 units 01/18/23 09:00 01/18/23 08:29 Insulin Glargine 300 Units/3 Ml Insuln.Pen SUBCUT 01/18/24 08:59 32 units DAILY FAISAL Administration Loratadine 10 mg 01/18/23 09:00 01/18/23 08:23 Loratadine 10 Mg Tablet PO 01/18/24 08:59 10 mg DAILY FAISAL Administration Magnesium Hydroxide 30 ml 01/18/23 03:39 Magnesium Hydroxide Susp 30 Ml Udc PO 01/18/24 03:38 Q6H PRN Constipation Metoprolol Tartrate 50 mg 01/18/23 09:00 01/18/23 08:23 Metoprolol Tartrate 50 Mg Tablet PO 01/18/24 08:59 50 mg BID FAISAL Administration Olanzapine 5 mg 01/18/23 03:39 Olanzapine 10 Mg Vial *Nf* IM 01/18/24 03:38 Q6H PRN Agitation Olanzapine 5 mg 01/18/23 03:39 01/18/23 12:21 Olanzapine 5 Mg Tablet PO 01/18/24 03:38 5 mg Q6H PRN Administration Agitation Olanzapine 5 mg 01/18/23 22:00 Olanzapine 5 Mg Tablet PO 01/18/24 21:59 HS FAISAL Pantoprazole Sodium 40 mg 01/18/23 09:00 01/18/23 08:23 Pantoprazole 40 Mg Tablet. PO 01/18/24 08:59 40 mg DAILY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 symptoms? Hyperglycemia may not cause any symptoms. If you do have symptoms, they may include: Increased thirst. Needing to urinate more often than usual. Hunger. Feeling very tired. Blurry vision. Other symptoms may develop if hyperglycemia gets worse, such as: Dry mouth. Abdominal pain. Loss of appetite. Fruity-smelling breath. Weakness. Unexpected weight loss. Tingling or numbness in the hands or feet. Headache. Cuts or bruises that are slow to heal. How is this diagnosed? Hyperglycemia is diagnosed with a blood test to measure your blood glucose level. This blood test is usually done while you are having symptoms. Your health care provider may also do a physical exam and review your medical history. You may have more tests to determine the cause of your hyperglycemia, such as: A fasting blood glucose (FBG) test. You will not be allowed to eat (you will fast) for at least 8 hours before a blood sample is taken. An A1C blood test. This provides information about blood glucose control over the previous 2 3 months. An oral glucose tolerance test (OGTT). This measures your blood glucose at two times: ?After fasting. This is your baseline blood glucose level. ?2 hours after drinking a beverage that contains glucose. How is this treated? Treatment depends on the cause of your hyperglycemia. Treatment may include: Taking medicine to regulate your blood glucose levels. If you take insulin or other diabetes medicines, your medicine or dosage may be adjusted. Lifestyle changes, such as exercising more, eating healthier foods, or losing weight. Treating an illness or infection. Checking your blood glucose more often. Stopping or reducing steroid medicines. If your hyperglycemia becomes severe and it results in diabetic ketoacidosis or hyperglycemic hyperosmolar state, you must be hospitalized and given IV fluids and IV insulin. Follow these instructions at home: General instructions Take yarh-jki-knsztqr and prescription medicines only as told by your health care provider. Do not use any products that contain nicotine or tobacco. These products include cigarettes, chewing tobacco, and vaping devices, such as e-cigarettes. If you need help quitting, ask your health careprovider. If you drink alcohol: ?Limit how much you have to: ?0 1 drink a day for women who are not . ?0 2 drinks a day for men. ?Know how much alcohol is in a drink. In the [place] one drink equals one 12 oz bottle of beer (355 mL), one 5 oz glass of wine (148 mL), or one 1 oz glass of hard liquor (44 mL). Learn to manage stress. If you need help with this, ask your health care provider. Do exercises as told by your health care provider. Keep all follow-up visits. This is important. Eating and drinking Maintain a healthy weight. Stay hydrated, especially when you exercise, get sick, or spend time in hot temperatures. Drink enough fluid to keep your urine pale yellow. If you have diabetes: Know the symptoms of hyperglycemia. Follow your diabetes management plan as told by your health care provider. Make sure you: ?Take your insulin and medicines as told. ?Follow your exercise plan. ?Follow your meal plan. Eat on time, and do not skip meals. ?Check your blood glucose as often as told. Make sure to check your blood glucose before and after exercise. If you exercise longer or in a different way, check your blood glucose more often. ?Follow your sick day plan whenever you cannot eat or drink normally. Make this plan in advance with your health care provider. Share your diabetes management plan with people in your workplace, school, and household. Check your urine for ketones when you are ill and as told by your health care provider. Carry a medical alert card or wear medical alert jewelry. Where to find more information [employer]: www.diabetes.org Contact a health care provider if: Your blood glucose is at or above 240 mg/dL (13.3 mmol/L) for 2 days in a row. You have problems keeping your blood glucose in your target range. You have frequent episodes of hyperglycemia. You have signs of illness, such as nausea, vomiting, or fever. Get help right away if: Your blood glucose monitor reads high even when you are taking insulin. You have trouble breathing. You have a change in how you think, feel, or act (mental status). You have nausea or vomiting that does not go away. These symptoms may represent a serious problem that is an emergency. Do not wait to see if the symptoms will go away. Get medical help right away. Call your local emergency services (911 in the [place] Do not drive yourself to the hospital. Summary Hyperglycemia occurs when the level of sugar (glucose) in the blood is too high. Hyperglycemia can happen with or without diabetes, and severe hyperglycemia can be life-threatening. Hyperglycemia is diagnosed with a blood test to measure your blood glucose level. This blood test is usually done while you are having symptoms. Your health care provider may also do a physical exam and review your medical history. If you have diabetes, follow your diabetes management plan as told by your health care provider. Contact your health care provider if you have problems keeping your blood glucose in your target range. This information is not intended to replace advice given to you by your health care provider. Make sure you discuss any questions you have with your health care provider. Document Revised: 03/29/2021 Document Reviewed: 03/29/2021 Elsevier Patient Education 2022 [email or web address]. Follow Up Care 11/02/2022 21:33:45 With:SKYE JONES Address: [address] [place] [address] [address] [place] [address]- [phone] Business (1) When:Within 3 Day(s) [facility]05-07-2023 Evaluation + Plan noteExtracted from: Title:ED Note Author:Grey Putnam DO Date :11/02/22 Body aches (R52: Pain, unspe cified) Diabetes mellitus with hyperglycemia (E11.65: Type 2 diabetes mellitus with hyperglycemia) Orders: acetaminophen, 975 mg = 3 tab(s), Tab, Oral, Once, Stop date 11/02/22 23:42:00 EDT, STAT, Start date 11/02/22 23:42:00 EDT, 11/02/22 23:42:00 EDT ondansetron, 4 mg = 2 mL, Injection, IV Push, Once, Stop date 11/02/22 22:50:00 EDT, STAT, Start date 11/02/22 22:50:00 EDT, 11/02/22 22:50:00 EDT Sodium Chloride 0.9% intravenous solution, 1,000 mL, Soln-IV, IV, Once, Stop date 11/02/22 22:04:00 EDT, STAT, Start date 11/02/22 22:04:00 EDT, Infuse over 61, minute(s) Automated Diff Basic Metabolic Panel Capillary Glucose POC CBC w/ Auto Diff eGFR Troponin 0 Hr. XR Chest Single View XR Hip 2-3 Views Right XR Knee Complete 4+ Views Right XR Shoulder Complete Right [facility]05-02-2023 Hospital Discharge instructions Patient Education 10/27/2022 22:03:32 Nausea and Vomiting, Adult, Bkag-kn-Lveb Nausea and Vomiting, Adult Nausea is feeling that you have an upset stomach and that you are about to vomit. Vomiting is when food in your stomach forcefully comes out of your mouth. Vomiting can make you feel weak. If you vomit, or if you are not able to drink enough fluids, you may not have enough water in your body (get dehydrated). If you do not have enough water in your body, you may: Feel tired. Feel thirsty. Have a dry mouth. Have cracked lips. Pee (urinate) less often. Older adults and people with other diseases or a weak body defense system (immune system) are at higher risk for not having enough water in the body. If you feel like you may vomit or you vomit, it is important to follow instructions from your doctor about how to take care of yourself. Follow these instructions at home: Watch your symptoms for any changes. Tell your doctor about them. Eating and drinking Take an ORS (oral rehydration solution). This is a drink that is sold at pharmacies and stores. Drink clear fluids in small amounts as you are able, such as: ?Water. ?Ice chips. ?Fruit juice that has water added (diluted fruit juice). ?Low-calorie sports drinks. Eat bland, jyiy-zb-xxumvf foods in small amounts as you are able, such as: ?Bananas. ?Applesauce. ?Rice. ?Low-fat (lean) meats. ?[place]. ?Crackers. Avoid drinking fluids that have a lot of sugar or caffeine in them. This includes energy drinks, sports drinks, and soda. Avoid alcohol. Avoid spicy or fatty foods. General instructions Take desl-jxl-upouvce and prescription medicines only as told by your doctor. Drink enough fluid to keep your pee (urine) pale yellow. Wash your hands often with soap and water for at least 20 seconds. If you cannot use soap and water, use hand manufacturer's representative. Make sure that everyone in your home washes their hands well and often. Rest at home until you feel better. Watch your condition for any changes. Take slow and deep breaths when you feel like you may vomit. Keep all follow-up visits. Contact a doctor if: Your symptoms get worse. You have new symptoms. You have a fever. You cannot drink fluids without vomiting. You feel like you may vomit for more than 2 days. You feel light-headed or dizzy. You have a headache. You have muscle cramps. You have a rash. You have pain while peeing. Get help right away if: You have pain in your chest, neck, arm, or jaw. You feel very weak or you faint. You vomit again and again. You have vomit that is bright red or looks like black coffee grounds. You have bloody or black poop (stools) or poop that looks like tar. You have a very bad headache, a stiff neck, or both. You have very bad pain, cramping, or bloating in your belly (abdomen). You have trouble breathing. You are breathing very quickly. Your heart is beating very quickly. Your skin feels cold and clammy. You feel confused. You have signs of losing too much water in your body, such as: ?Dark pee, very little pee, or no pee. ?Cracked lips. ?Dry mouth. ?Sunken eyes. ?Sleepiness. ?Weakness. These symptoms may be an emergency. Get help right away. Call 911. Do not wait to see if the symptoms will go away. Do not drive yourself to the hospital. Summary Nausea is feeling that you have an upset stomach and that you are about to vomit. Vomiting is when food in your stomach comes out of your mouth. Follow instructions from your doctor about eating and drinking. Take czmh-vxs-qgpjkak and prescription medicines only as told by your doctor. Contact your doctor if your symptoms get worse or you have new symptoms. Keep all follow-up visits. This information is not intended to replace advice given to you by your health care provider. Make sure you discuss any questions you have with your health care provider. Document Revised: 12/20/2021 Document Reviewed: 12/20/2021 [employer] Patient Education 2022 [email or web address]. 10/27/2022 22:03:32 Hematuria, Adult Hematuria, Adult Hematuria is blood in the urine. Blood may be visible in the urine, or it may be identified with a test. This condition can be caused by infections of the bladder, urethra, kidney, or prostate. Otherpossible causes include: Kidney stones. Cancer of the urinary tract. Too much calcium in the urine. Conditions that are passed from parent to child (inherited conditions). Exercise that requires a lot of energy. Infections can usually be treated with medicine, and a kidney stone usually will pass through your urine. If neither of these is the cause of your hematuria, more tests may be needed to identify the cause of your symptoms. It is very important to tell your health care provider about any blood in your urine, even if it ispainless or the blood stops without treatment. Blood in the urine, when it happens and then stops and then happens again, can be a symptom of a very serious condition, including cancer. There is no pain in the initial stages of many urinary cancers. Follow these instructions at home: Medicines Take ngjn-pcg-ezfgukw and prescription medicines only as told by your health care provider. If you were prescribed an antibiotic medicine, take it as told by your health care provider. Do notstop taking the antibiotic even if you start to feel better. Eating and drinking Drink enough fluid to keep your urine pale yellow. It is recommended that you drink 3 4 quarts (2.83.8 L) a day. If you have been diagnosed with an infection, drinking cranberry juice in addition tolarge amounts of water is recommended. Avoid caffeine, tea, and carbonated beverages. These tend to irritate the bladder. Avoid alcohol because it may irritate the prostate (in males). General instructions If you have been diagnosed with a kidney stone, follow your health care provider's instructions about straining your urine to catch the stone. Empty your bladder often. Avoid holding urine for long periods of time. If you are female: ?After a bowel movement, wipe from front to back and use each piece of toilet paper only once. ?Empty your bladder before and after sex. Pay attention to any changes in your symptoms. Tell your health care provider about any changes or any new symptoms. It is up to you to get the results of any tests. Ask your health care provider, or the department that is doing the test, when your results will be ready. Keep all follow-up visits. This is important. Contact a health care provider if: You develop back pain. You have a fever or chills. You have nausea or vomiting. Your symptoms do not improve after 3 days. Your symptoms get worse. Get help right away if: You develop severe vomiting and are unable to take medicine without vomiting. You develop severe pain in your back or abdomen even though you are taking medicine. You pass a large amount of blood in your urine. You pass blood clots in your urine. You feel very weak or like you might faint. You faint. Summary Hematuria is blood in the urine. It has many possible causes. It is very important that you tell your health care provider about any blood in your urine, even ifit is painless or the blood stops without treatment. Take hhar-ugc-ypsdpsx and prescription medicines only as told by your health care provider. Drink enough fluid to keep your urine pale yellow. This information is not intended to replace advice given to you by your health care provider. Make sure you discuss any questions you have with your health care provider. Document Revised: 02/13/2021 Document Reviewed: 02/13/2021 [employer] Patient Education 2022 [email or web address]. 10/27/2022 22:03:32 Flank Pain, Adult, Kfwj-ih-Adcy Flank Pain, Adult Flank pain is pain in your side. The flank is the area on your side between your upper belly (abdomen) and your spine. The pain may occur over a short time (acute), or it may be long-term or come back often (chronic). It may be mild or very bad. Pain in this area can be caused by many different things. Follow these instructions at home: Drink enough fluid to keep your pee (urine) pale yellow. Rest as told by your doctor. Take cgfz-egf-usdamdf and prescription medicines only as told by your doctor. Keep a journal to keep track of: ?What has caused your flank pain. ?What has made your flank pain feel better. Keep all follow-up visits. Contact a doctor if: Medicine does not help your pain. You have new symptoms. Your pain gets worse. Your symptoms last longer than 2 3 days. You have trouble peeing. You are peeing more often than normal. Get help right away if: You have trouble breathing. You are short of breath. Your belly hurts, or it is swollen or red. You feel like you may vomit (nauseous). You vomit. You feel faint, or you faint. You have blood in your pee. You have flank pain and a fever. These symptoms may be an emergency. Get help right away. Call your local emergency services (911 int [place] Do not wait to see if the symptoms will go away. Do not drive yourself to the hospital. Summary Flank pain is pain in your side. The flank is the area of your side between your upper belly (abdomen) and your spine. Flank pain may occur over a short time (acute), or it may be long-term or come back often (chronic). It may be mild or very bad. Pain in this area can be caused by many different things. Contact your doctor if your symptoms get worse or last longer than 2 3 days. This information is not intended to replace advice given to you by your health care provider. Make sure you discuss any questions you have with your health care provider. Document Revised: 08/26/2021 Document Reviewed: 08/26/2021 [employer] Patient Education 2022 [email or web address]. Follow Up Care 10/27/2022 19:47:23 With:Sarah Vega Address: [address] [phone] Business (1) When:10/30/2022 21:42:04 Comments:Follow-up with Dr. Vega for further evaluation of your right-sided flank pain. With:SKYE JONES Address: [address] [place] [address] [address] [place] [phone] Business (1) When:10/30/2022 21:41:47 Comments:Follow-up with your primary care provider in 3 to 5 days. If symptoms worsen, do not improve, or new symptoms arise please report back to emergency department for further evaluation. [facility]04-23-2023 Hospital Discharge instructions Patient Education 10/19/2022 17:56:02 Acute Bronchitis, Adult Acute Bronchitis, Adult Acute bronchitis is sudden inflammation of the main airways (bronchi) that come off the windpipe (trachea) in the lungs. The swelling causes the airways to get smaller and make more mucus than normal. This can make it hard to breathe and can cause coughing or noisy breathing (wheezing). Acute bronchitis may last several weeks. The cough may last longer. Allergies, asthma, and exposureto smoke may make the condition worse. What are the causes? This condition can be caused by germs and by substances that irritate the lungs, including: Cold and flu viruses. The most common cause of this condition is the virus that causes the common cold. Bacteria. This is less common. Breathing in substances that irritate the lungs, including: ?Smoke from cigarettes and other forms of tobacco. ?Dust and pollen. ?Fumes from household cleaning products, gases, or burned fuel. ?Indoor or outdoor air pollution. What increases the risk? The following factors may make you more likely to develop this condition: A weak body's defense system, also called the immune system. A condition that affects your lungs and breathing, such as asthma. What are the signs or symptoms? Common symptoms of this condition include: Coughing. This may bring up clear, yellow, or green mucus from your lungs (sputum). Wheezing. Runny or stuffy nose. Having too much mucus in your lungs (chest congestion). Shortness of breath. Aches and pains, including sore throat or chest. How is this diagnosed? This condition is usually diagnosed based on: Your symptoms and medical history. A physical exam. You may also have other tests, including tests to rule out other conditions, such as pneumonia. These tests include: A test of lung function. Test of a mucus sample to look for the presence of bacteria. Tests to check the oxygen level in your blood. Blood tests. Chest X-ray. How is this treated? Most cases of acute bronchitis clear up over time without treatment. Your health care provider may recommend: Drinking more fluids to help thin your mucus so it is easier to cough up. Taking inhaled medicine (inhaler) to improve air flow in and out of your lungs. Using a vaporizer or a humidifier. These are machines that add water to the air to help you breathebetter. Taking a medicine that thins mucus and clears congestion (expectorant). Taking a medicine that prevents or stops coughing (cough suppressant). It is notcommon to take an antibiotic medicine for this condition. Follow these instructions at home: Take ignz-spu-izcsxus and prescription medicines only as told by your health care provider. Use an inhaler, vaporizer, or humidifier as told by your health care provider. Take two teaspoons (10 mL) of honey at bedtime to lessen coughing at night. Drink enough fluid to keep your urine pale yellow. Do not use any products that contain nicotine or tobacco. These products include cigarettes, chewing tobacco, and vaping devices, such as e-cigarettes. If you need help quitting, ask your health careprovider. Get plenty of rest. Return to your normal activities as told by your health care provider. Ask your health care provider what activities are safe for you. Keep all follow-up visits. This is important. How is this prevented? To lower your risk of getting this condition again: Wash your hands often with soap and water for at least 20 seconds. If soap and water are not available, use hand manufacturer's representative. Avoid contact with people who have cold symptoms. Try not to touch your mouth, nose, or eyes with your hands. Avoid breathing in smoke or chemical fumes. Breathing smoke or chemical fumes will make your condition worse. Get the flu shot every year. Contact a health care provider if: Your symptoms do not improve after 2 weeks. You have trouble coughing up the mucus. Your cough keeps you awake at night. You have a fever. Get help right away if you: Cough up blood. Feel pain in your chest. Have severe shortness of breath. Faint or keep feeling like you are going to faint. Have a severe headache. Have a fever or chills that get worse. These symptoms may represent a serious problem that is an emergency. Do not wait to see if the symptoms will go away. Get medical help right away. Call your local emergency services (911 in the [place] Do not drive yourself to the hospital. Summary Acute bronchitis is inflammation of the main airways (bronchi) that come off the windpipe (trachea)in the lungs. The swelling causes the airways to get smaller and make more mucus than normal. Drinking more fluids can help thin your mucus so it is easier to cough up. Take usyq-vrc-uocfarc and prescription medicines only as told by your health care provider. Do not use any products that contain nicotine or tobacco. These products include cigarettes, chewing tobacco, and vaping devices, such as e-cigarettes. If you need help quitting, ask your health careprovider. Contact a health care provider if your symptoms do not improve after 2 weeks. This information is not intended to replace advice given to you by your health care provider. Make sure you discuss any questions you have with your health care provider. Document Revised: 10/16/2021 Document Reviewed: 10/16/2021 [employer] Patient Education 2022 [email or web address]. 10/19/2022 17:56:02 Upper Respiratory Infection, Adult, Vikq-ns-Ulwy Upper Respiratory Infection, Adult An upper respiratory infection (URI) affects the nose, throat, and upper airways that lead to the lungs. The most common type of URI is often called the common cold. URIs usually get better on their own, without medical treatment. What are the causes? A URI is caused by a germ (virus). You may catch these germs by: Breathing in droplets from an infected person's cough or sneeze. Touching something that has the germ on it (is contaminated) and then touching your mouth, nose, oreyes. What increases the risk? You are more likely to get a URI if: You are very young or very old. You have close contact with others, such as at work, school, or a health care facility. You smoke. You have long-term (chronic) heart or lung disease. You have a weakened disease-fighting system (immune system). You have nasal allergies or asthma. You have a lot of stress. You have poor nutrition. What are the signs or symptoms? Runny or stuffy (congested) nose. Cough. Sneezing. Sore throat. Headache. Feeling tired (fatigue). Fever. Not wanting to eat as much as usual. Pain in your forehead, behind your eyes, and over your cheekbones (sinus pain). Muscle aches. Redness or irritation of the eyes. Pressure in the ears or face. How is this treated? URIs usually get better on their own within 7 10 days. Medicines cannot cure URIs, but your doctor may recommend certain medicines to help relieve symptoms, such as: Wpig-gtz-kpxtqbt cold medicines. Medicines to reduce coughing (cough suppressants). Coughing is a type of defense against infection that helps to clear the nose, throat, windpipe, and lungs (respiratory system). Take these medicinesonly as told by your doctor. Medicines to lower your fever. Follow these instructions at home: Activity Rest as needed. If you have a fever, stay home from work or school until your fever is gone, or until your doctor says you may return to work or school. ?You should stay home until you cannot spread the infection anymore (you are not contagious). ?Your doctor may have you wear a face mask so you have less risk of spreading the infection. Relieving symptoms Rinse your mouth often with salt water. To make salt water, dissolve 1 tsp (3 6 g) of salt in 1 cup(237 mL) of warm water. Use a cool-mist humidifier to add moisture to the air. This can help you breathe more easily. Eating and drinking Drink enough fluid to keep your pee (urine) pale yellow. Eat soups and other clear broths. General instructions Take oeye-rbj-qwooemt and prescription medicines only as told by your doctor. Do not smoke or use any products that contain nicotine or tobacco. If you need help quitting, ask your doctor. Avoid being where people are smoking (avoid secondhand smoke). Stay up to date on all your shots (immunizations), and get the flu shot every year. Keep all follow-up visits. How to prevent the spread of infection to others Wash your hands with soap and water for at least 20 seconds. If you cannot use soap and water, use hand manufacturer's representative. Avoid touching your mouth, face, eyes, or nose. Cough or sneeze into a tissue or your sleeve or elbow. Do not cough or sneeze into your hand or into the air. Contact a doctor if: You are getting worse, not better. You have any of these: ?A fever or chills. ?Brown or red mucus in your nose. ?Yellow or brown fluid (discharge)coming from your nose. ?Pain in your face, especially when you bend forward. ?Swollen neck glands. ?Pain when you swallow. ?White areas in the back of your throat. Get help right away if: You have shortness of breath that gets worse. You have very bad or constant: ?Headache. ?Ear pain. ?Pain in your forehead, behind your eyes, and over your cheekbones (sinus pain). ?Chest pain. You have long-lasting (chronic) lung disease along with any of these: ?Making high-pitched whistling sounds when you breathe, most often when you breathe out (wheezing). ?Long-lasting cough (more than 14 days). ?Coughing up blood. ?A change in your usual mucus. You have a stiff neck. You have changes in your: ?Vision. ?Hearing. ?Thinking. ?Mood. These symptoms may be an emergency. Get help right away. Call 911. Do not wait to see if the symptoms will go away. Do not drive yourself to the hospital. Summary An upper respiratory infection (URI) is caused by a germ (virus). The most common type of URI is often called the common cold. URIs usually get better within 7 10 days. Take rycu-rgi-jzpmbrm and prescription medicines only as told by your doctor. This information is not intended to replace advice given to you by your health care provider. Make sure you discuss any questions you have with your health care provider. Document Revised: 01/15/2022 Document Reviewed: 01/15/2022 [employer] Patient Education 2022 [employer] 10/19/2022 17:56:02 Flank Pain, Adult Flank Pain, Adult Flank pain is pain that is located on the side of the body between the upper abdomen and the spine.This area is called the flank. The pain may occur over a short period of time (acute), or it may belong-term or recurring (chronic). It may be mild or severe. Flank pain can be caused by many things, including: Muscle soreness or injury. Kidney infection, kidney stones, or kidney disease. Stress. A disease of the spine (vertebral disk disease). A lung infection (pneumonia). Fluid around the lungs (pulmonary edema). A skin rash caused by the chickenpox virus (shingles). Tumors that affect the back of the abdomen. Gallbladder disease. Follow these instructions at home: Drink enough fluid to keep your urine pale yellow. Rest as told by your health care provider. Take sgyj-vzl-hmlnfab and prescription medicines only as told by your health care provider. Keep a journal to track what has caused your flank pain and what has made it feel better. Keep all follow-up visits. This is important. Contact a health care provider if: Your pain is not controlled with medicine. You have new symptoms. Your pain gets worse. Your symptoms last longer than 2 3 days. You have trouble urinating or you are urinating very frequently. Get help right away if: You have trouble breathing or you are short of breath. Your abdomen hurts or it is swollen or red. You have nausea or vomiting. You feel faint, or you faint. You have blood in your urine. You have flank pain and a fever. These symptoms may represent a serious problem that is an emergency. Do not wait to see if the symptoms will go away. Get medical help right away. Call your local emergency services (911 in the [place] Do not drive yourself to the hospital. Summary Flank pain is pain that is located on the side of the body between the upper abdomen and the spine. The pain may occur over a short period of time (acute), or it may be long-term or recurring (chronic). It may be mild or severe. Flank pain can be caused by many things. Contact your health care provider if your symptoms get worse or last longer than 2 3 days. This information is not intended to replace advice given to you by your health care provider. Make sure you discuss any questions you have with your health care provider. Document Revised: 08/26/2021 Document Reviewed: 08/26/2021 [employer] Patient Education 2022 [email or web address]. Follow Up Care 10/19/2022 14:33:52 With:SKYE JONES Address: [address] [place] [address] [address] [place] [address] [phone] Business (1) When:10/22/2022 17:15:53 Comments:Follow-up with your primary care provider in 3 to 5 days. If symptoms worsen, do not improve, or new symptoms arise please report back to emergency department for further evaluation. Continue follow-up with urologist as well. [facility]04-14-2023 Hospital Discharge instructions Patient Education 10/09/2022 23:08:23 Kidney Stones, Zdwe-oy-Fzea Kidney Stones Kidney stones are rock-like masses that form inside of the kidneys. Kidneys are organs that make pee (urine). A kidney stone may move into other parts of the urinary tract, including: The tubes that connect the kidneys to the bladder (ureters). The bladder. The tube that carries urine out of the body (urethra). Kidney stones can cause very bad pain and can block the flow of pee. The stone usually leaves your body (passes) through your pee. You may need to have a doctor take out the stone. What are the causes? Kidney stones may be caused by: A condition in which certain glands make too much parathyroid hormone (primary hyperparathyroidism). A buildup of a type of crystals in the bladder made of a chemical called uric acid. The body makes uric acid when you eat certain foods. Narrowing (stricture) of one or both of the ureters. A kidney blockage that you were born with. Past surgery on the kidney or the ureters, such as gastric bypass surgery. What increases the risk? You are more likely to develop this condition if: You have had a kidney stone in the past. You have a family history of kidney stones. You do not drink enough water. You eat a diet that is high in protein, salt (sodium), or sugar. You are overweight or very overweight (obese). What are the signs or symptoms? Symptoms of a kidney stone may include: Pain in the side of the belly, right below the ribs (flank pain). Pain usually spreads (radiates) to the groin. Needing to pee often or right away (urgently). Pain when going pee (urinating). Blood in your pee (hematuria). Feeling like you may vomit (nauseous). Vomiting. Fever and chills. How is this treated? Treatment depends on the size, location, and makeup of the kidney stones. The stones will often pass out of the body through peeing. You may need to: Drink more fluid to help pass the stone. In some cases, you may be given fluids through an IV tube put into one of your veins at the hospital. Take medicine for pain. Make changes in your diet to help keep kidney stones from coming back. Sometimes, medical procedures are needed to remove a kidney stone. This may involve: A procedure to break up kidney stones using a beam of light (laser) or shock waves. Surgery to remove the kidney stones. Follow these instructions at home: Medicines Take izcc-tzi-tcdfcbv and prescription medicines only as told by your doctor. Ask your doctor if the medicine prescribed to you requires you to avoid driving or using heavy machinery. Eating and drinking Drink enough fluid to keep your pee pale yellow. You may be told to drink at least 8 10 glasses of water each day. This will help you pass the stone. If told by your doctor, change your diet. This may include: ?Limiting how much salt you eat. ?Eating more fruits and vegetables. ?Limiting how much meat, poultry, fish, and eggs you eat. Follow instructions from your doctor about eating or drinking restrictions. General instructions Collect pee samples as told by your doctor. You may need to collect a pee sample: ?24 hours after a stone comes out. ?8 12 weeks after a stone comes out, and every 6 12 months after that. Strain your pee every time you pee (urinate), for as long as told. Use the strainer that your doctor recommends. Do not throw out the stone. Keep it so that it can be tested by your doctor. Keep all follow-up visits as told by your doctor. This is important. You may need follow-up tests. How is this prevented? To prevent another kidney stone: Drink enough fluid to keep your pee pale yellow. This is the best way to prevent kidney stones. Eat healthy foods. Avoid certain foods as told by your doctor. You may be told to eat less protein. Stay at a healthy weight. Where to find more information National Kidney Foundation (NKF): www.kidney.org [facility] (UCF): www.urologyhealth.org Contact a doctor if: You have pain that gets worse or does not get better with medicine. Get help right away if: You have a fever or chills. You get very bad pain. You get new pain in your belly (abdomen). You pass out (faint). You cannot pee. Summary Kidney stones are rock-like masses that form inside of the kidneys. Kidney stones can cause very bad pain and can block the flow of pee. The stones will often pass out of the body through peeing. Drink enough fluid to keep your pee pale yellow. This information is not intended to replace advice given to you by your health care provider. Make sure you discuss any questions you have with your health care provider. Document Released: 12/01/2008 Document Revised: 11/01/2019 Document Reviewed: 11/01/2019 [employer] Patient Education 2020 [employer] Follow Up Care 10/09/2022 19:35:44 With:Contact your urologist first thing Thursday morning for follow-up Address:Unknown When: Unknown With:SKYE JONES Address: [address] [place] [phone] Business (1) When:Within 3 Day(s) [facility]04-13-2023 Evaluation + Plan noteExtracted from: Title:ED Note Author:Debbie Doyle MD Date: 1. History of kidney stones (Z87.442: Personal history of urinary calculi) Orders: acetaminophen-oxycodone, 1 EA, Tab, Oral, Once, Stop date 10/09/22 23:06:00 EDT, STAT, Start date 10/09/22 23:06:00 EDT acetaminophen-oxycodone, 1 tab(s), Oral, q6hr, 12 tab(s), Refill(s) 0 HYDROmorphone, 0.5 mg = 0.5 mL, Injection, IntraMuscular, Once, Stop date 10/09/22 21:16:00 EDT, STAT, Start date 10/09/22 21:16:00 EDT, 10/09/22 21:16:00 EDT ondansetron, 4 mg = 1 tab(s), Tab-Dis, Oral, Once, Stop date 10/09/22 23:06:00 EDT, STAT, Start date 10/09/22 23:06:00 EDT, 10/09/22 23:06:00 EDT ondansetron, 4 mg = 1 tab(s), Oral, q8hr, # 10 tab(s), Refills(s) 0, Pharmacy: [facility], 170, cm, 10/09/22 19:53:00 EDT, Height/Length Dosing, 118, kg, 10/09/22 19:53:00 EDT, Weight Dosing promethazine, 25 mg = 1 mL, Injection, IntraMuscular, Once, Stop date 10/09/22 21:17:00 EDT, STAT, Start date 10/09/22 21:17:00 EDT, 10/09/22 21:17:00 EDT tamsulosin, 0.4 mg = 1 cap(s), Cap, Oral, Once, Stop date 10/09/22 23:05:00 EDT, STAT, Start date 10/09/22 23:05:00 EDT, 10/09/22 23:05:00 EDT tamsulosin, 0.4 mg = 1 cap(s), Oral, Daily, X 4 day(s), # 4 cap(s), Refills(s) 0, Pharmacy: [facility], 170, cm, 10/09/22 19:53:00 EDT, Height/Length Dosing, 118, kg, 10/09/22 19:53:00 EDT, Weight Dosing U Beta Hcg Qual UA With Cult Reflex Urine Strainer to go US Renal [facility]03-27-2023 Evaluation + Plan noteExtracted from: Title:ED Note Author:Sabina FERNANDEZ Jeannajael Zuniga Date :09/22/22 Flank pain (R10.9: Unspecifi ed abdominal pain) Nausea and vomiting (R11.2: Nausea with vomiting, unspecified) Orders: HYDROmorphone, 0.5 mg = 0.5 mL, Injection, IntraMuscular, Once, Stop date 09/22/22 0:48:00 EDT, STAT, Start date 09/22/22 0:48:00 EDT, 09/22/22 0:48:00 EDT metoclopramide, 10 mg = 2 mL, Injection, IntraMuscular, Once, Stop date 09/22/22 0:48:00 EDT, STAT, Start date 09/22/22 0:48:00 EDT, 09/22/22 0:48:00 EDT promethazine, 25 mg = 1 supp, Rectal, q6hr, PRN Nausea/Vomiting, # 6 EA, Refills(s) 0, Pharmacy: [facility], 170, cm, 09/21/22 23:04:00 EDT, Height/Length Dosing, 120.4, kg, 09/21/22 23:04:00 EDT, Weight Dosing promethazine, 12.5 mg = 1 tab(s), Oral, q6hr, PRN Nausea, # 12 tab(s), Refills(s) 0, Pharmacy: [facility], 170, cm, 09/21/22 23:04:00 EDT, Height/Length Dosing, 120.4, kg, 09/21/22 23:04:00 EDT, Weight Dosing Automated Diff Basic Metabolic Panel CBC w/ Auto Diff eGFR UA With Cult Reflex XR Abdomen 1 View [facility]03-27-2023 Hospital Discharge instructions Patient Education 09/22/2022 03:12:53 Nausea, Adult, Hnxc-eh-Cgva Nausea, Adult Nausea is feeling sick to your stomach or feeling that you are about to throw up (vomit). Feeling sick to your stomach is usually not serious, but it may be an early sign of a more serious medical problem. As you feel sicker to your stomach, you may throw up. If you throw up, or if you are not able to drink enough fluids, there is a risk that you may lose too much water in your body (get dehydrated). If you lose too much water in your body, you may: Feel tired. Feel thirsty. Have a dry mouth. Have cracked lips. Go pee (urinate) less often. Older adults and people who have other diseases or a weak body defense system (immune system) have a higher risk of losing too much water in the body. The main goals of treating this condition are: To relieve your nausea. To ensure your nausea occurs less often. To prevent throwing up and losing too much fluid. Follow these instructions at home: Watch your symptoms for any changes. Tell your doctor about them. Follow these instructions as toldby your doctor. Eating and drinking Take an ORS (oral rehydration solution). This is a drink that is sold at pharmacies and stores. Drink clear fluids in small amounts as you are able. These include: ?Water. ?Ice chips. ?Fruit juice that has water added (diluted fruit juice). ?Low-calorie sports drinks. Eat bland, ebcw-xk-ocosmt foods in small amounts as you are able, such as: ?Bananas. ?Applesauce. ?Rice. ?Low-fat (lean) meats. ?[place]. ?Crackers. Avoid drinking fluids that have a lot of sugar or caffeine in them. This includes energy drinks, sports drinks, and soda. Avoid alcohol. Avoid spicy or fatty foods. General instructions Take fgye-nlg-lowyods and prescription medicines only as told by your doctor. Rest at home while you get better. Drink enough fluid to keep your pee (urine) pale yellow. Take slow and deep breaths when you feel sick to your stomach. Avoid food or things that have strong smells. Wash your hands often with soap and water. If you cannot use soap and water, use hand manufacturer's representative. Make sure that all people in your home wash their hands well and often. Keep all follow-up visits as told by your doctor. This is important. Contact a doctor if: You feel sicker to your stomach. You feel sick to your stomach for more than 2 days. You throw up. You are not able to drink fluids without throwing up. You have new symptoms. You have a fever. You have a headache. You have muscle cramps. You have a rash. You have pain while peeing. You feel light-headed or dizzy. Get help right away if: You have pain in your chest, neck, arm, or jaw. You feel very weak or you pass out (faint). You have throw up that is bright red or looks like coffee grounds. You have bloody or black poop (stools) or poop that looks like tar. You have a very bad headache, a stiff neck, or both. You have very bad pain, cramping, or bloating in your belly (abdomen). You have trouble breathing or you are breathing very quickly. Your heart is beating very quickly. Your skin feels cold and clammy. You feel confused. You have signs of losing too much water in your body, such as: ?Dark pee, very little pee, or no pee. ?Cracked lips. ?Dry mouth. ?Sunken eyes. ?Sleepiness. ?Weakness. These symptoms may be an emergency. Do not wait to see if the symptoms will go away. Get medical help right away. Call your local emergency services (911 in the [place] Do not drive yourself to the hospital. Summary Nausea is feeling sick to your stomach or feeling that you are about to throw up (vomit). If you throw up, or if you are not able to drink enough fluids, there is a risk that you may lose too much water in your body (get dehydrated). Eat and drink what your doctor tells you. Take vnzh-ire-laylipu and prescription medicines only as told by your doctor. Contact a doctor right away if your symptoms get worse or you have new symptoms. Keep all follow-up visits as told by your doctor. This is important. This information is not intended to replace advice given to you by your health care provider. Make sure you discuss any questions you have with your health care provider. Document Released: 06/03/2012 Document Revised: 11/23/2018 Document Reviewed: 11/23/2018 [employer] Patient Education 2020 [employer] 09/22/2022 03:12:53 Flank Pain, Adult, Lwby-rx-Pllx Flank Pain, Adult Flank pain is pain in your side. The flank is the area of your side between your upper belly (abdomen) and your back. The pain may occur over a short time (acute), or it may be long-term or come backoften (chronic). It may be mild or very bad. Pain in this area can be caused by many different things. Follow these instructions at home: Drink enough fluid to keep your pee (urine) clear or pale yellow. Rest as told by your doctor. Take rzuw-jtq-sbetagh and prescription medicines only as told by your doctor. Keep a journal to keep track of: ?What has caused your flank pain. ?What has made it feel better. Keep all follow-up visits as told by your doctor. This is important. Contact a doctor if: Medicine does not help your pain. You have new symptoms. Your pain gets worse. You have a fever. Your symptoms last longer than 2 3 days. You have trouble peeing. You are peeing more often than normal. Get help right away if: You have trouble breathing. You are short of breath. Your belly hurts, or it is swollen or red. You feel sick to your stomach (nauseous). You throw up (vomit). You feel like you will pass out, or you do pass out (faint). You have blood in your pee. Summary Flank pain is pain in your side. The flank is the area of your side between your upper belly (abdomen) and your back. Flank pain may occur over a short time (acute), or it may be long-term or come back often (chronic). It may be mild or very bad. Pain in this area can be caused by many different things. Contact your doctor if your symptoms get worse or they last longer than 2 3 days. This information is not intended to replace advice given to you by your health care provider. Make sure you discuss any questions you have with your health care provider. Document Released: 03/24/2009 Document Revised: 05/28/2018 Document Reviewed: 10/05/2017 [employer] Patient Education 2020 [email or web address]. Follow Up Care 09/21/2022 22:18:55 With:SKYE JONES Address: [address] [place] [address] [address] [place] [address] [phone] Business (1) When:09/25/2022 Comments:Please follow-up with your primary care doctor next 2 to 3 days for further evaluation and management. You can use the Phenergan every 6-8 hours as needed for nausea and vomiting. [facility]03-14-2023 Hospital Discharge instructions Patient Education 09/08/2022 22:23:09 Urinary Tract Infection, Adult Urinary Tract Infection, Adult A urinary tract infection (UTI) is an infection of any part of the urinary tract. The urinary tractincludes the kidneys, ureters, bladder, and urethra. These organs make, store, and get rid of urinein the body. Your health care provider may use other names to describe the infection. An upper UTI affects the ureters and kidneys (pyelonephritis). A lower UTI affects the bladder (cystitis) and urethra (urethritis). What are the causes? Most urinary tract infections are caused by bacteria in your genital area, around the entrance to your urinary tract (urethra). These bacteria grow and cause inflammation of your urinary tract. What increases the risk? You are more likely to develop this condition if: You have a urinary catheter that stays in place (indwelling). You are not able to control when you urinate or have a bowel movement (you have incontinence). You are female and you: ?Use a spermicide or diaphragm for control. ?Have low estrogen levels. ?Are . You have certain genes that increase your risk (genetics). You are sexually active. You take antibiotic medicines. You have a condition that causes your flow of urine to slow down, such as: ?An enlarged prostate, if you are male. ?Blockage in your urethra (stricture). ?A kidney stone. ?A nerve condition that affects your bladder control (neurogenic bladder). ?Not getting enough to drink, or not urinating often. You have certain medical conditions, such as: ?Diabetes. ?A weak disease-fighting system (immunesystem). ?Sickle cell disease. ?Gout. ?Spinal cord injury. What are the signs or symptoms? Symptoms of this condition include: Needing to urinate right away (urgently). Frequent urination or passing small amounts of urine frequently. Pain or burning with urination. Blood in the urine. Urine that smells bad or unusual. Trouble urinating. Cloudy urine. Vaginal discharge, if you are female. Pain in the abdomen or the lower back. You may also have: Vomiting or a decreased appetite. Confusion. Irritability or tiredness. A fever. Diarrhea. The first symptom in older adults may be confusion. In some cases, they may not have any symptoms until the infection has worsened. How is this diagnosed? This condition is diagnosed based on your medical history and a physical exam. You may also have other tests, including: Urine tests. Blood tests. Tests for sexually transmitted infections (STIs). If you have had more than one UTI, a cystoscopy or imaging studies may be done to determine the cause of the infections. How is this treated? Treatment for this condition includes: Antibiotic medicine. Aypy-uej-nlhuzzi medicines to treat discomfort. Drinking enough water to stay hydrated. If you have frequent infections or have other conditions such as a kidney stone, you may need to see a health care provider who specializes in the urinary tract (urologist). In rare cases, urinary tract infections can cause sepsis. Sepsis is a life- threatening condition that occurs when the body responds to an infection. Sepsis is treated in the hospital with IV antibiotics, fluids, and other medicines. Follow these instructions at home: Medicines Take izck-ggu-wbtvawl and prescription medicines only as told by your health care provider. If you were prescribed an antibiotic medicine, take it as told by your health care provider. Do notstop using the antibiotic even if you start to feel better. General instructions Make sure you: ?Empty your bladder often and completely. Do not hold urine for long periods of time. ?Empty your bladder after sex. ?Wipe from front to back after a bowel movement if you are female. Use each tissue one time when you wipe. Drink enough fluid to keep your urine pale yellow. Keep all follow-up visits as told by your health care provider. This is important. Contact a health care provider if: Your symptoms do not get better after 1 2 days. Your symptoms go away and then return. Get help right away if you have: Severe pain in your back or your lower abdomen. A fever. Nausea or vomiting. Summary A urinary tract infection (UTI) is an infection of any part of the urinary tract, which includes the kidneys, ureters, bladder, and urethra. Most urinary tract infections are caused by bacteria in your genital area, around the entrance to your urinary tract (urethra). Treatment for this condition often includes antibiotic medicines. If you were prescribed an antibiotic medicine, take it as told by your health care provider. Do notstop using the antibiotic even if you start to feel better. Keep all follow-up visits as told by your health care provider. This is important. This information is not intended to replace advice given to you by your health care provider. Make sure you discuss any questions you have with your health care provider. Document Released: 03/25/2006 Document Revised: 06/02/2019 Document Reviewed: 12/23/2018 [employer] Patient Education 2020 [email or web address]. Follow Up Care 09/08/2022 19:40:05 With:SKYE JONES Address: [address] [place] [address] [address] [place] [address] [phone] Business (1) When:09/11/2022 Comments:Call the office of your primary care doctor to arrange for follow-up within the above-stated timeframe. Follow-up with your primary care doctor about this ED visit. You should review your labs, imaging, and diagnoses from this ED visit with your primary care physician. If you were prescribed medications you should discuss possible side-effects and drug interactions with your pharmacist. Call 911 or go to the nearest Emergency Department if you develop any new or worsening symptoms. [facility]03-13-2023 Evaluation + Plan noteExtracted from: Title:ED Note Author:Geo Chaves PA-C e:09/08/22 Flank pain (R10.9: Unspecifi ed abdominal pain) Urinary tract infection (N39.0: Urinary tract infection, site not specified) Orders: acetaminophen-oxycodone, 1 tab(s), Oral, q6hr, 8 tab(s), Refill(s) 0, [facility], 170, cm, 09/08/22 19:56:00 EDT, Height/Length Dosing, 116.8, kg, 09/08/22 19:56:00 EDT, Weight Dosing HYDROmorphone, 0.5 mg = 0.5 mL, Injection, IV Push, Once, Stop date 09/08/22 20:32:00 EDT, STAT, Start date 09/08/22 20:32:00 EDT, 09/08/22 20:32:00 EDT HYDROmorphone, 0.5 mg = 0.5 mL, Injection, IV Push, Once, Stop date 09/08/22 22:21:00 EDT, STAT, Start date 09/08/22 22:21:00 EDT, 09/08/22 22:21:00 [facility]02-21-2023 Hospital Discharge instructions Patient Education 08/18/2022 23:13:17 Urinary Tract Infection, Adult Urinary Tract Infection, Adult A urinary tract infection (UTI) is an infection of any part of the urinary tract. The urinary tractincludes the kidneys, ureters, bladder, and urethra. These organs make, store, and get rid of urinein the body. Your health care provider may use other names to describe the infection. An upper UTI affects the ureters and kidneys (pyelonephritis). A lower UTI affects the bladder (cystitis) and urethra (urethritis). What are the causes? Most urinary tract infections are caused by bacteria in your genital area, around the entrance to your urinary tract (urethra). These bacteria grow and cause inflammation of your urinary tract. What increases the risk? You are more likely to develop this condition if: You have a urinary catheter that stays in place (indwelling). You are not able to control when you urinate or have a bowel movement (you have incontinence). You are female and you: ?Use a spermicide or diaphragm for control. ?Have low estrogen levels. ?Are . You have certain genes that increase your risk (genetics). You are sexually active. You take antibiotic medicines. You have a condition that causes your flow of urine to slow down, such as: ?An enlarged prostate, if you are male. ?Blockage in your urethra (stricture). ?A kidney stone. ?A nerve condition that affects your bladder control (neurogenic bladder). ?Not getting enough to drink, or not urinating often. You have certain medical conditions, such as: ?Diabetes. ?A weak disease-fighting system (immunesystem). ?Sickle cell disease. ?Gout. ?Spinal cord injury. What are the signs or symptoms? Symptoms of this condition include: Needing to urinate right away (urgently). Frequent urination or passing small amounts of urine frequently. Pain or burning with urination. Blood in the urine. Urine that smells bad or unusual. Trouble urinating. Cloudy urine. Vaginal discharge, if you are female. Pain in the abdomen or the lower back. You may also have: Vomiting or a decreased appetite. Confusion. Irritability or tiredness. A fever. Diarrhea. The first symptom in older adults may be confusion. In some cases, they may not have any symptoms until the infection has worsened. How is this diagnosed? This condition is diagnosed based on your medical history and a physical exam. You may also have other tests, including: Urine tests. Blood tests. Tests for sexually transmitted infections (STIs). If you have had more than one UTI, a cystoscopy or imaging studies may be done to determine the cause of the infections. How is this treated? Treatment for this condition includes: Antibiotic medicine. Stzf-vur-rminezj medicines to treat discomfort. Drinking enough water to stay hydrated. If you have frequent infections or have other conditions such as a kidney stone, you may need to see a health care provider who specializes in the urinary tract (urologist). In rare cases, urinary tract infections can cause sepsis. Sepsis is a life- threatening condition that occurs when the body responds to an infection. Sepsis is treated in the hospital with IV antibiotics, fluids, and other medicines. Follow these instructions at home: Medicines Take nnpb-lib-yyntton and prescription medicines only as told by your health care provider. If you were prescribed an antibiotic medicine, take it as told by your health care provider. Do notstop using the antibiotic even if you start to feel better. General instructions Make sure you: ?Empty your bladder often and completely. Do not hold urine for long periods of time. ?Empty your bladder after sex. ?Wipe from front to back after a bowel movement if you are female. Use each tissue one time when you wipe. Drink enough fluid to keep your urine pale yellow. Keep all follow-up visits as told by your health care provider. This is important. Contact a health care provider if: Your symptoms do not get better after 1 2 days. Your symptoms go away and then return. Get help right away if you have: Severe pain in your back or your lower abdomen. A fever. Nausea or vomiting. Summary A urinary tract infection (UTI) is an infection of any part of the urinary tract, which includes the kidneys, ureters, bladder, and urethra. Most urinary tract infections are caused by bacteria in your genital area, around the entrance to your urinary tract (urethra). Treatment for this condition often includes antibiotic medicines. If you were prescribed an antibiotic medicine, take it as told by your health care provider. Do notstop using the antibiotic even if you start to feel better. Keep all follow-up visits as told by your health care provider. This is important. This information is not intended to replace advice given to you by your health care provider. Make sure you discuss any questions you have with your health care provider. Document Released: 03/25/2006 Document Revised: 06/02/2019 Document Reviewed: 12/23/2018 [employer] Patient Education 2020 [email or web address]. Follow Up Care 08/18/2022 18:58:43 With:SKYE JONES Address: [address] [place] [address] 6 [place] [address] [phone] Business (1) When:Within 3 Day(s) [facility]02-20-2023 Evaluation + Plan noteExtracted from: Title:ED Note Author:Grey Putnam DO Date :08/18/22 Acute UTI (N39.0: Urinary tr act infection, site not specified) Orders: acetaminophen-oxycodone, 1 tab(s), Tab, Oral, Once, Stop date 08/18/22 22:40:00 EST, STAT, Start date 08/18/22 22:40:00 EST acetaminophen-oxycodone, 1 tab(s), Oral, q8hr, 8 tab(s), Refill(s) 0, [facility], 170.2, cm, 08/18/22 19:13:00 EST, Height/Length Dosing, 110, kg, 08/18/22 19:13:00 EST, Weight Dosing HYDROmorphone, 0.5 mg = 0.5 mL, Injection, IV Push, Once, Stop date 08/18/22 20:08:00 EST, STAT, Start date 08/18/22 20:08:00 EST, 08/18/22 20:08:00 EST promethazine, 12.5 mg = 0.5 mL, Injection, IV Push, Once, Stop date 08/18/22 19:23:00 EST, STAT, Start date 08/18/22 19:23:00 EST, 08/18/22 19:23:00 EST promethazine, 12.5 mg = 1 tab(s), Oral, q8hr, # 12 tab(s), Refills(s) 0, Pharmacy: [facility], 170.2, cm, 08/18/22 19:13:00 EST, Height/Length Dosing, 110, kg, 08/18/22 19:13:00 EST, Weight Dosing Sodium Chloride 0.9% intravenous solution, 1,000 mL, Soln-IV, IV, Once, Stop date 08/18/22 19:23:00 EST, STAT, Start date 08/18/22 19:23:00 EST, mL/hr, Infuse over 61, minute(s) sulfamethoxazole-trimethoprim, 1 tab(s), Tab, Oral, Once, Stop date 08/18/22 22:40:00 EST, STAT, Start date 08/18/22 22:40:00 EST sulfamethoxazole-trimethoprim, 1 tab(s), Oral, BID for 7 day(s), 14 tab(s), Refill(s) 0, [facility], 170.2, cm, 08/18/22 19:13:00 EST, Height/Length Dosing, 110, kg, 08/18/22 19:13:00 EST, Weight Dosing Automated Diff Basic Metabolic Panel CBC w/ Auto Diff CT Abdomen/Pelvis w/o Contrast eGFR Hepatic Function Panel Lipase Level Saline Lock Insert UA With Cult Reflex Urine Culture Diagnostic Tests Pending * Urine Culture 08/18/22 [facility]02-11-2023 Hospital Discharge instructions Patient Education 08/08/2022 22:25:08 Urinary Tract Infection, Adult Urinary Tract Infection, Adult A urinary tract infection (UTI) is an infection of any part of the urinary tract. The urinary tractincludes the kidneys, ureters, bladder, and urethra. These organs make, store, and get rid of urinein the body. Your health care provider may use other names to describe the infection. An upper UTI affects the ureters and kidneys (pyelonephritis). A lower UTI affects the bladder (cystitis) and urethra (urethritis). What are the causes? Most urinary tract infections are caused by bacteria in your genital area, around the entrance to your urinary tract (urethra). These bacteria grow and cause inflammation of your urinary tract. What increases the risk? You are more likely to develop this condition if: You have a urinary catheter that stays in place (indwelling). You are not able to control when you urinate or have a bowel movement (you have incontinence). You are female and you: ?Use a spermicide or diaphragm for control. ?Have low estrogen levels. ?Are . You have certain genes that increase your risk (genetics). You are sexually active. You take antibiotic medicines. You have a condition that causes your flow of urine to slow down, such as: ?An enlarged prostate, if you are male. ?Blockage in your urethra (stricture). ?A kidney stone. ?A nerve condition that affects your bladder control (neurogenic bladder). ?Not getting enough to drink, or not urinating often. You have certain medical conditions, such as: ?Diabetes. ?A weak disease-fighting system (immunesystem). ?Sickle cell disease. ?Gout. ?Spinal cord injury. What are the signs or symptoms? Symptoms of this condition include: Needing to urinate right away (urgently). Frequent urination or passing small amounts of urine frequently. Pain or burning with urination. Blood in the urine. Urine that smells bad or unusual. Trouble urinating. Cloudy urine. Vaginal discharge, if you are female. Pain in the abdomen or the lower back. You may also have: Vomiting or a decreased appetite. Confusion. Irritability or tiredness. A fever. Diarrhea. The first symptom in older adults may be confusion. In some cases, they may not have any symptoms until the infection has worsened. How is this diagnosed? This condition is diagnosed based on your medical history and a physical exam. You may also have other tests, including: Urine tests. Blood tests. Tests for sexually transmitted infections (STIs). If you have had more than one UTI, a cystoscopy or imaging studies may be done to determine the cause of the infections. How is this treated? Treatment for this condition includes: Antibiotic medicine. Ydqe-mka-bindpcj medicines to treat discomfort. Drinking enough water to stay hydrated. If you have frequent infections or have other conditions such as a kidney stone, you may need to see a health care provider who specializes in the urinary tract (urologist). In rare cases, urinary tract infections can cause sepsis. Sepsis is a life- threatening condition that occurs when the body responds to an infection. Sepsis is treated in the hospital with IV antibiotics, fluids, and other medicines. Follow these instructions at home: Medicines Take bwwc-olr-xatgsri and prescription medicines only as told by your health care provider. If you were prescribed an antibiotic medicine, take it as told by your health care provider. Do notstop using the antibiotic even if you start to feel better. General instructions Make sure you: ?Empty your bladder often and completely. Do not hold urine for long periods of time. ?Empty your bladder after sex. ?Wipe from front to back after a bowel movement if you are female. Use each tissue one time when you wipe. Drink enough fluid to keep your urine pale yellow. Keep all follow-up visits as told by your health care provider. This is important. Contact a health care provider if: Your symptoms do not get better after 1 2 days. Your symptoms go away and then return. Get help right away if you have: Severe pain in your back or your lower abdomen. A fever. Nausea or vomiting. Summary A urinary tract infection (UTI) is an infection of any part of the urinary tract, which includes the kidneys, ureters, bladder, and urethra. Most urinary tract infections are caused by bacteria in your genital area, around the entrance to your urinary tract (urethra). Treatment for this condition often includes antibiotic medicines. If you were prescribed an antibiotic medicine, take it as told by your health care provider. Do notstop using the antibiotic even if you start to feel better. Keep all follow-up visits as told by your health care provider. This is important. This information is not intended to replace advice given to you by your health care provider. Make sure you discuss any questions you have with your health care provider. Document Released: 03/25/2006 Document Revised: 06/02/2019 Document Reviewed: 12/23/2018 [employer] Patient Education 2020 [email or web address]. 08/08/2022 22:25:08 Flank Pain, Adult Flank Pain, Adult Flank pain is pain that is located on the side of the body between the upper abdomen and the back. This area is called the flank. The pain may occur over a short period of time (acute), or it may be long-term or recurring (chronic). It may be mild or severe. Flank pain can be caused by many things,including: Muscle soreness or injury. Kidney stones or kidney disease. Stress. A disease of the spine (vertebral disk disease). A lung infection (pneumonia). Fluid around the lungs (pulmonary edema). A skin rash caused by the chickenpox virus (shingles). Tumors that affect the back of the abdomen. Gallbladder disease. Follow these instructions at home: Drink enough fluid to keep your urine clear or pale yellow. Rest as told by your health care provider. Take jcdh-qsg-ygliged and prescription medicines only as told by your health care provider. Keep a journal to track what has caused your flank pain and what has made it feel better. Keep all follow-up visits as told by your health care provider. This is important. Contact a health care provider if: Your pain is not controlled with medicine. You have new symptoms. Your pain gets worse. You have a fever. Your symptoms last longer than 2 3 days. You have trouble urinating or you are urinating very frequently. Get help right away if: You have trouble breathing or you are short of breath. Your abdomen hurts or it is swollen or red. You have nausea or vomiting. You feel faint or you pass out. You have blood in your urine. Summary Flank pain is pain that is located on the side of the body between the upper abdomen and the back. The pain may occur over a short period of time (acute), or it may be long-term or recurring (chronic). It may be mild or severe. Flank pain can be caused by many things. Contact your health care provider if your symptoms get worse or they last longer than 2 3 days. This information is not intended to replace advice given to you by your health care provider. Make sure you discuss any questions you have with your health care provider. Document Released: 08/06/2006 Document Revised: 05/28/2018 Document Reviewed: 08/28/2017 [employer] Patient Education 2020 [email or web address]. Follow Up Care 08/08/2022 19:26:09 With:SKYE JONES Address: [address] [place] [phone] Business (1) When:Within 3 Day(s) [facility]02-10-2023 Evaluation + Plan noteExtracted from: Title:ED Note Author:Grey Putnam DO Date :08/08/22 Acute UTI (N39.0: Urinary tr act infection, site not specified) Flank pain (R10.9: Unspecified abdominal pain) Orders: cephalexin, 500 mg = 1 cap(s), Oral, q12hr, X 7 day(s), # 14 cap(s), Refills(s) 0, Pharmacy: [facility], 170, cm, 08/08/22 19:35:00 EST, Height/Length Dosing, 119.6, kg, 08/08/22 19:35:00 EST, Weight Dosing cephalexin, 500 mg = 1 cap(s), Cap, Oral, Once, Stop date 08/08/22 21:32:00 EST, STAT, Start date 08/08/22 21:32:00 EST, 08/08/22 21:32:00 EST HYDROmorphone, 0.5 mg = 0.5 mL, Injection, IV Push, Once, Stop date 08/08/22 21:36:00 EST, STAT, Start date 08/08/22 21:36:00 EST, 08/08/22 21:36:00 EST HYDROmorphone, 0.5 mg = 0.5 mL, Injection, IV Push, Once, Stop date 08/08/22 20:44:00 EST, STAT, Start date 08/08/22 20:44:00 EST, 08/08/22 20:44:00 EST HYDROmorphone, 0.5 mg = 0.5 mL, Injection, IV Push, Once, Stop date 08/08/22 19:46:00 EST, STAT, Start date 08/08/22 19:46:00 EST, 08/08/22 19:46:00 EST promethazine, 12.5 mg = 0.5 mL, Injection, IV Push, Once, Stop date 08/08/22 19:45:00 EST, STAT, Start date 08/08/22 19:45:00 EST, 08/08/22 19:45:00 EST promethazine, 12.5 mg = 1 tab(s), Oral, q8hr, # 12 tab(s), Refills(s) 0, Pharmacy: [facility], 170, cm, 08/08/22 19:35:00 EST, Height/Length Dosing, 119.6, kg, 08/08/22 19:35:00 EST, Weight Dosing Sodium Chloride 0.9% intravenous solution, 1,000 mL, Soln-IV, IV, Once, Stop date 08/08/22 19:34:00 EST, STAT, Start date 08/08/22 19:34:00 EST, mL/hr, Infuse over 61, minute(s) Automated Diff Basic Metabolic Panel Blood Culture Charcoal Blood Culture Charcoal CBC w/ Auto Diff CT Abdomen/Pelvis w/o Contrast eGFR Hepatic Function Panel Lactic Acid Lactic Acid Lipase Level Saline Lock Insert UA With Cult Reflex Urine Culture Diagnostic Tests Pending * Blood Culture Charcoal 08/08/22 * Blood Culture Charcoal 08/08/22 * Urine Culture 08/08/22 [facility]02-06-2023 History of Present illness Narrative* Kelly Smith RN - 08/04/2022 11:00 AM EST Diabetes Self- Management Education Program Assessment and Education Record- Also see Diabetic Screening Patient, Gisel Carlton, has been diagnosed with [] Type 1 [x] Type 2 diabetes. [] Patient is new to diabetes, and here for initial diabetes self-management assessment and education. [x] Patient is here for review of diabetes self-management assessment and education. Today's visit was in an [x] individual [] group setting. Patient came [x] alone [] with family member. Goals setting: Initial Goal Set with Patient [x]Yes [] NO MEDICAL HISTORY: Past Medical History: Diagnosis Date Allergic rhinitis Dizziness Fatigue GERD (gastroesophageal reflux disease) Headache(784.0) Hematuria Hyperlipidemia Kidney stones Pap smear for cervical cancer screening 10/07 vag cuff Recurrent UTI Type A blood, Rh positive Type II or unspecified type diabetes mellitus without mention of complication, not stated as uncontrolled Family History Problem Relation Age of Onset Arthritis Mother Hypertension Mother Heart Disease Father Coronary Art Dis Father Hypertension Father Fentanyl, Pcn [penicillins], Demerol, Morphine, Nubain [nalbuphine hcl], Aspirin, Ciprofloxacin, and Ketorolac tromethamine Immunization History Administered Date(s) Administered Influenza Virus Vaccine 04/23/2018 Influenza, FLUARIX, FLULAVAL, FLUZONE (age 6 mo+) AND AFLURIA, (age 3 y+), PF, 0.5mL 04/23/2018 Current Medications Current Outpatient Medications Medication Sig Dispense Refill gabapentin (NEURONTIN) 600 MG tablet Take 1 tablet by mouth 3 times daily for 30 days. 90 tablet 0 Insulin Degludec (TRESIBA FLEXTOUCH) 100 UNIT/ML SOPN Up to 80 units daily 15 Adjustable Dose Pre-filled Pen Syringe 3 metoprolol tartrate (LOPRESSOR) 25 MG tablet Take 2 tablets by mouth 2 times daily 360 tablet 1 insulin aspart (NOVOLOG FLEXPEN RELION) 100 UNIT/ML injection pen INJECT 35 UNITS SUBCUTANEOUSLY THREE TIMES DAILY BEFORE MEAL(S) 31 mL 2 omeprazole (PRILOSEC) 20 MG delayed release capsule Take 1 capsule by mouth once daily 90 capsule 0 rosuvastatin (CRESTOR) 20 MG tablet TAKE 1 TABLET BY MOUTH EVERY DAY 90 tablet 1 tiZANidine (ZANAFLEX) 4 MG tablet TAKE 1 TABLET BY MOUTH EVERY 8 HOURS NEEDED FOR MUSCLE SPASM 90 tablet 1 traZODone (DESYREL) 100 MG tablet TAKE 1 TABLET BY MOUTH NIGHTLY FOR SLEEP 30 tablet 2 ibuprofen (ADVIL;MOTRIN) 800 MG tablet TAKE 1 TABLET BY MOUTH THREE TIMES DAILY WITH MEALS 90 tablet 2 celecoxib (CELEBREX) 200 MG capsule Take 1 capsule by mouth daily 30 capsule 5 Tirzepatide (MOUNJARO) 2.5 MG/0.5ML SOPN SC injection Inject 0.5 mLs into the skin once a week 4 Adjustable Dose Pre-filled Pen Syringe 1 vitamin D (ERGOCALCIFEROL) 1.25 MG (27677 UT) CAPS capsule Take 1 capsule by mouth once a week 4 capsule 0 ondansetron (ZOFRAN-ODT) 4 MG disintegrating tablet Take 1 tablet by mouth 3 times daily as needed for Nausea or Vomiting 10 tablet 0 Continuous Blood Gluc Sensor (FREESTYLE MYRON 14 DAY SENSOR) MISC Inject 1 actuation into the skin 4 times daily (before meals and nightly) 6 each 3 Continuous Blood Gluc Stitch Burnisher (FREESTYLE MYRON 14 DAY READER) POOL 1 actuation by Does not apply route 4 times daily (before meals and nightly) 1 each 0 Insulin Pen Needle 32G X 4 MM MISC 1 each by Does not apply route 4 times daily (before meals and nightly) 150 each 3 Dulaglutide (TRULICITY) 0.75 MG/0.5ML SOPN Inject 0.75 mg into the skin once a week 3 pen 1 zinc sulfate (ZINCATE) 220 (50 Zn) MG capsule Take 1 capsule by mouth daily 30 capsule 3 ondansetron (ZOFRAN) 4 MG tablet Take 1 tablet by mouth 3 times daily as needed for Nausea or Vomiting 30 tablet 0 ascorbic acid (VITAMIN C) 500 MG tablet Take 1 tablet by mouth daily 30 tablet 3 blood glucose monitor strips 1 strip by Other route 4 times daily (before meals and nightly) Pt test 4x daily Dx E11.65. May substitute for generic or insurance covered product 150 strip 3 blood glucose monitor kit and supplies 1 kit by Other route 4 times daily (before meals and nightly) Pt test 4x daily Dx E11.65. May substitute for generic or insurance covered product 1 kit 0 Lancets MISC 1 each by Does not apply route 4 times daily (before meals and nightly) Pt test 4x daily Dx E11.65. May substitute for generic or insurance covered product 150 each 3 ONETOUCH DELICA LANCETS 33G MISC USE FOUR TIMES DAILY 400 each 1 ONE TOUCH LANCETS MISC 1 each by Does not apply route 4 times daily Please provide lancets compatible with One Touch Verio 400 each 0 No current facility-administered medications for this encounter. : Comments: Allergies: Allergies Allergen Reactions Fentanyl Itching Pcn [Penicillins] Swelling Total body swelling- only injection, able to take oral amox Demerol Hives Morphine Hives Nubain [Nalbuphine Hcl] Hives Aspirin nosebleeds Ciprofloxacin Rash Ketorolac Tromethamine Rash Diabetes 5 / Health Status 1. A1C blood level - at goal < 7% Lab Results Component Value Date LABA1C 6.8 07/28/2022 LABA1C 7.3 03/04/2022 LABA1C 11.2 11/19/2021 Lab Results Component Value Date LABMICR 1.90 11/19/2021 LDLCALC 153 (H) 07/22/2019 CREATININE 0.64 07/21/2022 2. Blood pressure (140/90) Or less BP Readings from Last 3 Encounters: 07/28/22 120/88 07/11/22 (!) 145/73 03/04/22 106/64 3. Cholesterol ( LDL under 100) Lab Results Component Value Date LDLCALC 153 (H) 07/22/2019 4. Smoking ? []Yes [x]No 5. Taking an Asprin daily? []Yes [x]No Diabetes Self- Management Education Record Participant Name: Gisel Yomaira Carlton Referring Provider: PEE Uribe CNP Assessment/Evaluation Ratings: 1=Needs Instruction 4=Demonstrates Understanding/Competency 2=Needs Review NC=Not Covered 3=Comprehends Baez Points N/A=Not Applicable Topics/Learning Objectives Initial Assessment Date: Comments: Signature: Classes 1, 2, 3 or Individual instruction Instr. Date: Comment: Signature: Reinforce Date: Comments: Signature: Post- Education Eval date: Comments: Signature: Pathophysiology of diabetes Define diabetes & Insulin resistance Identify own type of diabetes; role of the pancreas; signs/symptoms; diagnostic criteria; prevention & treatment options; contributing factors. AssessmentRatin 08/04/22 Diabetes Education assessment completed today. Patient has: [] No knowledge of diabetes disease process [] Limited knowledge of diabetes disease process [x] Good knowledge of diabetes disease process. In this session, the role of the pancreas, insulin, and the liver in glucose utilization and insulin resistance was [] Introduced [x] Reviewed. [x] ADA booklet Where Do I Begin used to reinforce teaching. Kelly Smith RN [] Discussed basic pathophysiology of diabetes with the group including the pancreas, insulin, insulin resistance and the liver's involvement. [] Reviewed the different types of DM, risk factors, diagnosis, symptoms and the treatment options.Evaluation rating: Recent Health problems: []Yes []No Being Active Verbalize effect of exercise on blood glucose levels; benefits of regular exercise; safety considerations; contraindications; maintenance of activity. Assessment Ratin 08/04/22 Patient is [x] currently being active daily Pt fell last November 2021 and had shoulder repair in Mar 2022. Still in PT as significant injury, not back to work yet. Walks now [] not currently being active daily. [x] Reviewed effects of exercise on glycemic control, risks and benefits, precautions. Patient []has co- morbidities [x] has no co-morbidities that recommend being seen by PCM prior to starting exercise program for medical clearance. [x] Briefly reviewed guidelines for frequency, duration, intensity for exercise. Patient currently engages in the following activities: Walking Kelly Smith RN [] Reviewed effects of activity on glycemic control and weight loss, risks and benefits, and precautions. [] Current recommendations for being active by the [place] [employer] reviewed. [] Discussed what patient is doing to stay active Evaluation rating: Have you made any changes in your activity level? []Yes []No If yes, how? If yes, how many days/week? Monitoring blood glucose Identify recommended & personal blood glucose targets; importance of testing; testing supplies; HgbA1C target levels; Factors affecting blood glucose; Importance of logging blood glucose levels for pattern recognition; ketone testing; safe lancet disposal.. Assessment Ratin 08/04/22 [x] Proficient in using meter - uses freestyle Myron 2 Having trouble since putting on new sensor yesterday. Gave I-phone to son and today started using the reader that came with meter. Unfortunatelyit is not reading the sensor. Advised to contact company for assistance [] Recently started using meter [] Not currently using meter [] Patient does not have a meter prescribed & advised to contact PCP for order or to purchase meter. [x] Reviewed handout Desired blood glucose level citing ADA recommendations for blood glucose goals. Discussed frequency of testing, importance of record keeping, proper handling of meter and test strips, disposal of used strips and lancets. Reviewed importance of testing as a means to evaluate effectiveness of treatment plan. [x] Does not have any Anemias or hemoglobinopathies that may affect A1c [] Has anemia or hemoglobinopathy that may affect A1c Kelly Smith RN [] Discussed blood glucose monitoring to include: [place] [employer] goals for blood glucose, effects of diet, exercise and medications on test results, frequency of testing, the possible causes and appropriate action to take if hypoglycemia (15/15 rule) or hyperglycemia occurs, importance of record keeping to share with their PCP and when to call their PCP with abnormal results. [] Also reviewed were: proper storage and handling of both the meter and test strips; proper disposal of used strips and lancets, running quality control engineering technician checks on the test strips using control solution and loading and using lancet device to obtain an adequate sample. Suggested times were given forroutine testing. To increase testing for sick day monitoring, or when a change in diabetes medication, activity, or stress occurs. [] Aware of individualized A1C goal and current A1C. [] Checking for ketones was introduced along with prevention and symptoms of Diabetic Ketoacidosis (DKA) Evaluation rating: Checking blood sugar times a day. Checking before meals? []Yes []No Fasting ranges in last week: Checking 2 hours post prandial? []Yes []No Ranges in last week: Checking at bedtime? []Yes []No Ranges in last week: Knowledgeable of blood glucose goals? []Yes []No Glucose meter - educate on meter use if new to monitoring. Able to use meter appropriately Assessment Ratin 08/04/22 [] Patient is new to glucose meter and instructed on the following.: []Overview of meter - 800 number on all machines for help []Proper storage/ handling of meter and test strips []Washing hands, turning on meter - setting date and time []Running quality control engineering technician checks on the test strips using control solution []Loading and using lancet device to obtain an adequate sample []Obtaining blood sample and reading results on meter []Proper disposal of used strips and lancets []Frequency of testing Importance of record keeping []When to call their PCM with abnormal results []Desired blood glucose goals for optimal control - handout given [] All of the above [] Patient instructed on home meter. Name of meter: [] Patient instructed with demonstrator model in office. The patient return demonstrated [] Verbally [] Using his own meter: [] Self-tested Bg: Kelly Smith RN See above Evaluation rating: Cleaning hands before testing? []Yes []No Using sides of fingers, not pads? []Yes []No Using quality control engineering technician checks. []Yes []No Logging resuts? []Yes []No Risk Reduction - acute complications: Identify symptoms of hyper & hypoglycemia, and prevention& treatment strategies. Assessment Ratin 08/04/22 [] Knowledgeable [] Limited Knowledge [x] No knowledge of hypo or hyperglycemia. [x] Handouts reviewed covering symptoms and treatment for both. (includes Rule of 15) Patient has []low [x]high risk for hypoglycemia. [x] Advised to carry source of fast acting glucose at all times. [x] Advised to carry ID on person identifying as having diabetes. Wallet card given today Patient states she has been going low in the morning (below 40) 2-3 times this week. PCP had reduced of Tresbia from 80 to 40 U last Thursday . Advised her to contact PCP or Dr Quan's office to see if dose can be further reduced. Also lowered Novolog from 30 U to 20U last week. Kelly Smith RN [] Reviewed signs and symptoms of acute complications of diabetes, (hypoglycemia and hyperglycemia), possible causes and actions to take if occurs. [] Reviewed BG guidelines and troubleshooting unexpected numbers. Evaluation rating: Knowledge of Hypo and Hyper glycemia treatment []Yes []No Knowledge of Hypo and Hyper glycemia prevention []Yes []No Lows since last visit? []Yes []No Treat appropriately? []Yes []No Explainable? []Yes []No Ketone testing? []Yes []No Risk Reduction - sick days Describe sick day guidelines & indications for physician notification. Identify short term consequences of poor control. Assessment Ratin08/04/22 NC [] Advised of effects of illness on blood glucose. Reviewed management of sick days with group. Advised about importance of continuing diabetes medications, tips for staying hydrated and when to callthe doctor. [] Sick day handout given. [] Sick day toolbox reviewed. Evaluation rating: Knowledge of sick day plan? []Yes [] No Healthy Coping: Identify healthy and unhealthy coping, causes of stress and ways to reduce stress. How depression affects diabetes care and how to seek help if needed. Identify support needed & support network available Assessment Ratin 08/04/22 Patient's PAID-5 Score:1 [x]Patient's PAID-5 (Problem Areas in Diabetes) score is less than 9. No intervention needed at this time. [] Patient's PAID-5 (Problem Areas in Diabetes) score is greater than 8 which indicates possible diabetes related emotional distress and warrants further assessment. [] Support given during appointment. Patient advised to follow up with PCP or psychologist. [] Letter will be sent to PCP indicating further assessment needed. Kelly Smith RN [] Reviewed healthy coping and unhealthy coping with the group. Discussed what ways of coping each person usually uses and brainstormed ways to change to a healthy coping mechanism with the group. [] Stressed the importance of stress reduction and the negative effects of stress on the body including elevated BG. [] Community resources and support networks reviewed and handout provided. Evaluation rating: Feelings/Attitudes/Concerns? Ongoing self-management support plan? [] Yes []No Problem solving & goal setting: Behavior Change and goal settingIdentify 7 self-care behaviors, problem solving techniques: Findingproblems, identifying solutions and taking action. Assessment Ratin 08/04/22 Discussed willingness to change behaviors and setting SMART goals. Patient [x] is willing [] is not willing to change at this time. Kelly Smith RN [] Identified problem solving techniques: finding problems, identifying solutions (goal setting) and taking action. [] Patient reviewed selected goal set at initial assessment. Evaluation rating: Identifying Barriers: Depression, unhealthy behaviors, financial Healthy Eating: Describe effect of type, amount & timing of food on blood glucose; Describe basic meal planning techniques & current nutrition guideline Correctly read food labels & demonstrate CHO counting & portion control with personalized meal plan. Identifies dining out strategies, & dietary sick day guidelines Assessment Ratin 08/04/22 Meal Plan patient is currently following: [] plate method [] portion control [] carb counting [] label reading [x] no meal plan [x] Booklet from ADA Counting Carbs given. Reviewed plate method, portion control & label reading for carb counting utilizing booklet. [x] Advised that dietitian will recommend individualized number of carbs to eat daily, but in meantime could follow basic recommendations as follows: [] Men- [] for weight loss - 3-4 choices/45-60 gms per meal with 1 snack of 15 gm per day. []To maintain weight: 4-5 choices/60-75 gms pre meal with 1 snack of 15 gm per day. [x] Women - [x]weight loss 2-3 choices/30-45 gms per meal with 1 snack of 15 gm per day. []To maintain weight: 3-4 servings/45-60 gms pre meal with 1 snack of 15 gm per day. Patient would benefit from [] individual appt with dietitian [x] group MNT with dietitian Kelly Smith RN Evaluation rating: Are you following a meal plan? []Yes []No [] Portion control [] Plate method [] Carb counting [] Label reading Weight loss since class? []Yes []No Taking MedicationsIdentify effects of diabetes medicines on blood glucose levels; List diabetes medication taken, action & side effects Assessment Ratin 08/04/22 Handouts provided on both oral and injectable medications. Currently taking: Mounjaro started last week just took her 2nd dose. Had been on Ozempic and Trulicity with side effects. So far no side effects from Mounjaro. Tresiba 40 U nightly and Novolog 20 U with meals. Stressed importance of not taking Novolog if not eating carbs. Insulin sensitive Sliding scale shared with patient and instructed when to use per patient request. Advised to share with PCP and Dr. Quan for approval. [] Currently takes the following complementary or alternative medicines: [x] Reviewed medication compliance, action, side effects and timing of each. Patient is: [x]compliant with current meds. []noncompliant with current meds. Kelly Smith RN [] Discussed all medication classes both oral and injectable to include method of action, side effects and precautions. [] Patient provided handout with their medications for diabetes listed showing method of action andwhen to take. Evaluation rating: Any Changes in Medications? Compliant? []Yes []No Any side effects? []Yes [] No Insulin / Injectable - Appropriate injection sites; proper storage; supplies needed; proper technique; safe needle disposal guidelines. Assessment Ratin 08/04/22 [] Not on insulin [] New to insulin Patient is new to insulin and prescribed: [] Instructed today on type of insulin(s), onset, peak and duration. [] Demonstrated proper administration technique using []Vial & syringe []Pen. [] Return demonstration via [] Self-injection __U Site:____ [] Demonstrator [] Reviewed recommended injection sites, proper storage of insulin, Proper needle disposal, importance of blood glucose monitoring when taking insulin, and risk of hypoglycemia. [] Handouts given. [x] Previously on insulin: and assessed the following: [x] Knowledge of type of insulin - onset, peak and duration of each type [] Demonstrates Competency [x] Education provided [x] Proper storage of insulin: [] Demonstrates Competency [x] Education provided [] Site Management [] Demonstrates Competency [] Education provided [] Injection site currently uses: [] Evidence of: [] bruising [] infection [] lipoatrophy [] lipohypertrophy. [] Injecting near umbilicus or scars/tattoos [] Rotates sites appropriately [] Skin Preparation technique: [] Injection Procedure: [] Demonstrates Competency [] Education provided [] Sterile Technique [] Rolling to uniformity (if necessary) [] Pre-injection priming (pen only) [] Air into vial (Syringe only) [] Correct order for mixing in same syringe (if necessary) [] Dosing accuracy [] Needle insertion [] Complete injection - [] Needle withdrawal - with waiting time before removing needle [] Disposal Procedure: [] Demonstrates Competency [] Education provided [] Has sharps container /needle clip [] Uses sharps container / needle clip [] Injection Device Selection: [] Demonstrates Competency [] Education provided [] Appropriate needle size [] Sufficient volume [] Appropriate dosing increments [] Suited to physical limitations [x] Injection adherence: [] Demonstrates Competency [] Education provided [x] Misses doses: [] Daily [] Weekly [] Monthly [x] Almost Never [x] Hypoglycemia symptoms & treatment: [] Demonstrates Competency [x] Education provided Kelly Smith RN [] Discussed insulin stigma and proper technique including site selection and self-injection. [] Reviewed both pen and vial/syringe use. Discussed needle disposal and proper insulin storage andimportance of times to take insulin. [] Discussed importance of blood glucose monitoring to assess current treatment effectiveness. Evaluation rating: On Insulin? []Yes []No Injection site used: Rotating sites? []Yes [] No Problems? []Yes []No Storing insulin correctly? []Yes [] No Injecting at proper times? []Yes []No IRisk Reduction - chronic complications: Describe the relationship of blood glucose levels to residential complications of diabetes. Identify preventative measures & standards of care. Assessment Ratin08/04/22 NC See Diabetes Assessment for last completed chronic complication prevention appointments. [] Patient is up-to-date on preventative exams and vaccines [x] Patient is not up-to date on preventative exams and vaccines and advised to discuss with PCM [x] Blood pressure is at goal [] Blood pressure is not at goal [] Cholesterol is at goal [] Cholesterol is not at goal [] Has microvascular complications [] Has macrovascular complications Kelly Smith RN [] Reviewed natural course of T2DM with group and how chronic complications are related to elevatedblood glucose. [] Discussed macro and microvascular complications and the need for control of lipids, blood pressure, glucose levels, weight reduction and smoking cessation to help reduce risks. [] Instructed on goals for blood pressure, lipids, and glucose for optimal health. [] Individualized scorecard provided with current health maintenance recommendations from the [place] [employer] to include Eye, dental exams, foot exams, recommended labs and vaccines for people with diabetes. Evaluation rating: Using Score card? [] Yes []No Blood Pressure at goal? [] Yes []No Foot exams: self-exams daily []Yes []No Provider yearly [] Yes []No Eye and dental exams up to date? []Yes []No Labs completed & at goal [] Yes []No Plan if not at goal? []Yes []No Immunizations [] Flu []pneumonia []Hep B (19-59) []Covid Individualized goal selection. 08/04/22 My goal , to help me improve my health, I will: 1.Stop by Dr. Quan's office today to share <40 blood glucose in mornings and get advice on potentially lowering dose of Tresbia. Kelly Smith RN Percentage of goal completed from Initial Assessment: % 2. % New revised goal: Percentage of goal completed: 1. 2. New revised goal: Percentage of goal completed since end of class: 1. 2. New revised goal: Plan Follow-up Appointments planned in group setting. Next Appointment in 6 weeks. Instruction Method: [x]Lecture/Discussion []Power Point Presentation [x]Handouts []Return Demonstration Education Materials/Equipment Provided: [x] Self-Management - Initial Assessment - Where do I Begin booklet and Counting Carbs from the ADA. [] Self-Management Class 1 - On the Road to better managing your diabetes - [facility] [] Self-Management Class 2 - Meal Plan, Choose your Foods - Food Lists for Diabetes and Nutrition in the Fast Johnathan - fast facts about fast food [] Self-Management Class 3 - Diabetes ID card, foot care tips sheet, Continuing Your Journey with Diabetes , Individualized Diabetes report card, Sick Day Rules , Diabetes Cookbooks, Magazines and Pedometers when available [] Glucose Meter [] BD Getting Started Insulin Kit [] Other Encounter Type Date Start Time End Time Comments No Show Dates Assessment 08/04/22 Kelly Smith RN [phone] 08/04/22 [x] Patient has no barriers to learning and recommend attending classes. Classes scheduled for: September 16 [] Patient has the following barriers to learning and would benefit from additional education in anindividual setting. Barriers: [] Will follow up: [] Patient declines classes at this time. [] Will follow up: Kelly Smith RN Class 1 - Understanding diabetes [] First class completed today. Class 2- Nutrition and diabetes [] Second class completed today Class 3 - Preventing Complications [] Third class completed today. [] Patient has completed all 3 classes today. Goal sheets and DSMS Support Plan completed. Will follow up in 3-4 months via telephone. Patient advised to contact Diabetes Education office if any questions. Number provided. [] Patient needs to attend Class # in order to complete classes. Scheduled for: Individual MNT 3 Month Follow-up []In Person []Telephone Meter Instrx Insulin Instrx []Pen []Vial & Syringe DSMS Support Plan: Follow-up plan: [] Healthy Coping [] Emotional Support [] National [place] on Mental Illness (LARISSA) - (Depression, bipolar and other support) 691.627.7493; www.larissa.org [] Depression & Bipolar Support [place] 523-625-3713; www.dbsalliance.org [] National Suicide Prevention Tqanmdmz-517-787-8255 [] Anxiety & Depression Association of [place] Find local support groups by zip code at www.adaa.[place] National phone number 248-833-3771 [] Counseling: [] Diabetes Support Groups [] New Weigh of Life at [facility] Thursday of the month at 10:00 sa-[phone] [] On-line support groups (Facebook, Easy Home Solutions.ADOMIC (formerly YieldMetrics), ADA) [] [facility] [] I would be interested in a support group at [facility] in [place] if offered [] Stress Relief [] Yoga Class [] Start a journal [] Relaxation techniques [] Cykkmrh7Nlszv- Lazaro [] SparkQuote (Free, inspiring quote of the day) [] Healthy Eating [] Weight Management & Carb Counting [] Weight Parlzrid-075-790-6000; www.weightwatchers.ADOMIC (formerly YieldMetrics) [] Over Eaters Ilpmcfbao-622-441-2664 (support group)- www.oa.org [] Follow up individual appointment with [facility] dietitian - call [phone] [] Food Tracking Apps - My Fitness Pal, Calorie Lamont [] ADA website - Recipes & Nutrition info, weight loss [] Thingy Club.ADOMIC (formerly YieldMetrics) [] Monitoring [] Glucose William (Free, tracks blood glucose, graphs) [] MySugrApp (Basic and Pro patterns) [] Diabetes:M - logbook [] Being Active [] 24 Hour Hoqdcnh-136-297-0240; www.IntelliMat [] Planet Fitness www.Chat& (ChatAnd) [] [facility] - [phone] [] Fit Walks: FREE [facility] in [place] on Mondays 5:30 pm [facility] in [place] (for weather) [facility] on at 5:30 [phone] [] Olga Damon walking videos (Some free on youtube) [] Other Exercise Plan/Facility [] Apps Couch to 5K [] Reducing Risk [] Make a sick day toolkit [] Schedule appointments for eye, dentist [] Stop smoking [] Monitor Blood pressure [] Get vaccinated [] Other: [] Taking Medications [] Lazaro: MyTherapyApp - helps track meds [] Seek financial help with medications: [] Sut-gbvfiwx-ftpjcc-gfdq-aobhmg-hqwdjbyh-01-24-19.pdf https://www.diabeteseducator.org/docs/default-source/practice/educator-tools/non -qokfkbi-iiwbtx-gkih-igrsmi-ydotonbo-7-29-19.pdf?sfvrsn=2 [] Insulin cost saving resource https://www.diabeteseducator.org/docs/default-source/practice/educator-tools/ins ajey-gkvb-imlygi-bkwfabsrf-8-3-19.pdf?sfvrsn=4 [] GetInsulin.org [] The Affordable insulin Project http://affordableinsulinproject.org/ [] Diabetes Websites - Use as a resource for additional information [] www.diabetes.org [] Osmosis.Rayku.ADOMIC (formerly YieldMetrics) [] WWW.diabeteseducator.org Association of Diabetes Care & Education Specialists [] www.niddk.nih.gov/health-information/diabetes/overview National Pana of Health [] www.medicalert.org - offers emergency medical information service, including an ID bracelet/pendant (have to pay) [] Journals/Magazines [] Diabetes Forecast ; www.diabetesforecast.org [] Diabetes Self-Management ; www.diabetesselBrightScope.ADOMIC (formerly YieldMetrics) [] Diabetes Health [phone]; www.diabeteshealth.com [] Other [] Health Program offered at place of employment [] Insurance Company's Chronic Disease Management Program [] Follow up - Diabetes Education or Nutrition Therapy Annually (call in 1 year to set up apt) [] Join the Living with Type 2 Diabetes Program (FREE) www.diabetes.org/diabetes/type-2/ikmwes-cvkd-ajkc-9-uusplxfm-byizkde or call 0-288-WOEHFOCZ [] Stop smoking - www.Sokoos.org/healthy/psof-euil-irjh-tobacco Post Education Referrals: [] [place] Tobacco Quit information sheet and 1800 QUIT NOW , 0477 788- 1167 [] Dental care [] Actuarial Mathematician [] Asphalt Coater [] Other Kelly Smith RN documented in this encounterBON Sounder Work Phone: [phone] Hospital Discharge instructions Patient Education 07/17/2022 22:47:15 Urinary Tract Infection, Adult Urinary Tract Infection, Adult A urinary tract infection (UTI) is an infection of any part of the urinary tract. The urinary tractincludes the kidneys, ureters, bladder, and urethra. These organs make, store, and get rid of urinein the body. Your health care provider may use other names to describe the infection. An upper UTI affects the ureters and kidneys (pyelonephritis). A lower UTI affects the bladder (cystitis) and urethra (urethritis). What are the causes? Most urinary tract infections are caused by bacteria in your genital area, around the entrance to your urinary tract (urethra). These bacteria grow and cause inflammation of your urinary tract. What increases the risk? You are more likely to develop this condition if: You have a urinary catheter that stays in place (indwelling). You are not able to control when you urinate or have a bowel movement (you have incontinence). You are female and you: ?Use a spermicide or diaphragm for control. ?Have low estrogen levels. ?Are . You have certain genes that increase your risk (genetics). You are sexually active. You take antibiotic medicines. You have a condition that causes your flow of urine to slow down, such as: ?An enlarged prostate, if you are male. ?Blockage in your urethra (stricture). ?A kidney stone. ?A nerve condition that affects your bladder control (neurogenic bladder). ?Not getting enough to drink, or not urinating often. You have certain medical conditions, such as: ?Diabetes. ?A weak disease-fighting system (immunesystem). ?Sickle cell disease. ?Gout. ?Spinal cord injury. What are the signs or symptoms? Symptoms of this condition include: Needing to urinate right away (urgently). Frequent urination or passing small amounts of urine frequently. Pain or burning with urination. Blood in the urine. Urine that smells bad or unusual. Trouble urinating. Cloudy urine. Vaginal discharge, if you are female. Pain in the abdomen or the lower back. You may also have: Vomiting or a decreased appetite. Confusion. Irritability or tiredness. A fever. Diarrhea. The first symptom in older adults may be confusion. In some cases, they may not have any symptoms until the infection has worsened. How is this diagnosed? This condition is diagnosed based on your medical history and a physical exam. You may also have other tests, including: Urine tests. Blood tests. Tests for sexually transmitted infections (STIs). If you have had more than one UTI, a cystoscopy or imaging studies may be done to determine the cause of the infections. How is this treated? Treatment for this condition includes: Antibiotic medicine. Kefj-cpi-thrhabp medicines to treat discomfort. Drinking enough water to stay hydrated. If you have frequent infections or have other conditions such as a kidney stone, you may need to see a health care provider who specializes in the urinary tract (urologist). In rare cases, urinary tract infections can cause sepsis. Sepsis is a life- threatening condition that occurs when the body responds to an infection. Sepsis is treated in the hospital with IV antibiotics, fluids, and other medicines. Follow these instructions at home: Medicines Take gcbs-zzr-bffnoot and prescription medicines only as told by your health care provider. If you were prescribed an antibiotic medicine, take it as told by your health care provider. Do notstop using the antibiotic even if you start to feel better. General instructions Make sure you: ?Empty your bladder often and completely. Do not hold urine for long periods of time. ?Empty your bladder after sex. ?Wipe from front to back after a bowel movement if you are female. Use each tissue one time when you wipe. Drink enough fluid to keep your urine pale yellow. Keep all follow-up visits as told by your health care provider. This is important. Contact a health care provider if: Your symptoms do not get better after 1 2 days. Your symptoms go away and then return. Get help right away if you have: Severe pain in your back or your lower abdomen. A fever. Nausea or vomiting. Summary A urinary tract infection (UTI) is an infection of any part of the urinary tract, which includes the kidneys, ureters, bladder, and urethra. Most urinary tract infections are caused by bacteria in your genital area, around the entrance to your urinary tract (urethra). Treatment for this condition often includes antibiotic medicines. If you were prescribed an antibiotic medicine, take it as told by your health care provider. Do notstop using the antibiotic even if you start to feel better. Keep all follow-up visits as told by your health care provider. This is important. This information is not intended to replace advice given to you by your health care provider. Make sure you discuss any questions you have with your health care provider. Document Released: 03/25/2006 Document Revised: 06/02/2019 Document Reviewed: 12/23/2018 WalkHub Patient Education 2020 [email or web address]. 07/17/2022 22:47:15 Sinus Tachycardia Sinus Tachycardia Sinus tachycardia is a kind of fast heartbeat. In sinus tachycardia, the heart beats more than 100 times a minute. Sinus tachycardia starts in a part of the heart called the sinus node. Sinus tachycardia may be harmless, or it may be a sign of a serious condition. What are the causes? This condition may be caused by: Exercise or exertion. A fever. Pain. Loss of body fluids (dehydration). Severe bleeding (hemorrhage). Anxiety and stress. Certain substances, including: ?Alcohol. ?Caffeine. ?Tobacco and nicotine products. ?Cold medicines. ?Illegal drugs. Medical conditions including: ?Heart disease. ?An infection. ?An overactive thyroid (hyperthyroidism). ?A lack of red blood cells (anemia). What are the signs or symptoms? Symptoms of this condition include: A feeling that the heart is beating quickly (palpitations). Suddenly noticing your heartbeat (cardiac awareness). Dizziness. Tiredness (fatigue). Shortness of breath. Chest pain. Nausea. Fainting. How is this diagnosed? This condition is diagnosed with: A physical exam. Other tests, such as: ?Blood tests. ?An electrocardiogram (ECG). This test measures the electrical activity of the heart. ?Ambulatory athletic monitor. This records your heartbeats for 24 hours or more. You may be referred to a flight operations specialist (mechanical research engineer). How is this treated? Treatment for this condition depends on the cause or the underlying condition. Treatment may involve: Treating the underlying condition. Taking new medicines or changing your current medicines as told by your health care provider. Making changes to your diet or lifestyle. Follow these instructions at home: Lifestyle Do not use any products that contain nicotine or tobacco, such as cigarettes and e-cigarettes. If you need help quitting, ask your health care provider. Do not use illegal drugs, such as cocaine. Learn relaxation methods to help you when you get stressed or anxious. These include deep breathing. Avoid caffeine or other stimulants. Alcohol use Do not drink alcohol if: ?Your health care provider tells you not to drink. ?You are , may be , or are planning to become . If you drink alcohol, limit how much you have: ?0 1 drink a day for women. ?0 2 drinks a day for men. Be aware of how much alcohol is in your drink. In the [place] one drink equals one typical bottle of beer (12 oz), one-half glass of wine (5 oz), or one shot of hard liquor (1 oz). General instructions Drink enough fluids to keep your urine pale yellow. Take ffqg-qvo-jrwjtrs and prescription medicines only as told by your health care provider. Keep all follow-up visits as told by your health care provider. This is important. Contact a health care provider if you have: A fever. Vomiting or diarrhea that does not go away. Get help right away if you: Have pain in your chest, upper arms, jaw, or neck. Become weak or dizzy. Feel faint. Have palpitations that do not go away. Summary In sinus tachycardia, the heart beats more than 100 times a minute. Sinus tachycardia may be harmless, or it may be a sign of a serious condition. Treatment for this condition depends on the cause or the underlying condition. Get help right away if you have pain in your chest, upper arms, jaw, or neck. This information is not intended to replace advice given to you by your health care provider. Make sure you discuss any questions you have with your health care provider. Document Released: 07/23/2005 Document Revised: 08/04/2018 Document Reviewed: 08/04/2018 WalkHub Patient Education 2020 [employer] 07/17/2022 22:47:15 Flank Pain, Adult Flank Pain, Adult Flank pain is pain that is located on the side of the body between the upper abdomen and the back. This area is called the flank. The pain may occur over a short period of time (acute), or it may be long-term or recurring (chronic). It may be mild or severe. Flank pain can be caused by many things,including: Muscle soreness or injury. Kidney stones or kidney disease. Stress. A disease of the spine (vertebral disk disease). A lung infection (pneumonia). Fluid around the lungs (pulmonary edema). A skin rash caused by the chickenpox virus (shingles). Tumors that affect the back of the abdomen. Gallbladder disease. Follow these instructions at home: Drink enough fluid to keep your urine clear or pale yellow. Rest as told by your health care provider. Take yrfi-grg-umdxybn and prescription medicines only as told by your health care provider. Keep a journal to track what has caused your flank pain and what has made it feel better. Keep all follow-up visits as told by your health care provider. This is important. Contact a health care provider if: Your pain is not controlled with medicine. You have new symptoms. Your pain gets worse. You have a fever. Your symptoms last longer than 2 3 days. You have trouble urinating or you are urinating very frequently. Get help right away if: You have trouble breathing or you are short of breath. Your abdomen hurts or it is swollen or red. You have nausea or vomiting. You feel faint or you pass out. You have blood in your urine. Summary Flank pain is pain that is located on the side of the body between the upper abdomen and the back. The pain may occur over a short period of time (acute), or it may be long-term or recurring (chronic). It may be mild or severe. Flank pain can be caused by many things. Contact your health care provider if your symptoms get worse or they last longer than 2 3 days. This information is not intended to replace advice given to you by your health care provider. Make sure you discuss any questions you have with your health care provider. Document Released: 08/06/2006 Document Revised: 05/28/2018 Document Reviewed: 08/28/2017 WalkHub Patient Education [employer]. Follow Up Care 07/17/2022 19:37:47 With:Fei Peña Address: [address] [place] [address] [phone] Business (1) When:07/20/2022 Comments:Follow up with your primary doctor for the flank pain. Follow-up with Dr. Peña for the fast heartrate. Return to the emergency room if your pain gets worse, chest pain, shortness of breath or any new symptoms. With:SKYE JONES Address: [address] [place] [phone] Business (1) When:Within 3 Day(s) [facility]01-19-2023 Evaluation + Plan noteExtracted from: Title:ED Note Author:Shantell Rondon, Agatha Benavides te:07/17/22 1. Flank pain (R10.9: Unspec ified abdominal pain) 2. Sinus tachycardia (R00.0: Tachycardia, unspecified) 3. Urinary tract infection (N39.0: Urinary tract infection, site not specified) Orders: cephalexin, 500 mg = 1 cap(s), Oral, QID, X 7 day(s), # 28 cap(s), Refills(s) 0, Pharmacy: [id number], 170, cm, 07/17/22 19:43:00 EST, Height/Length Dosing, 115.3, kg, 07/17/22 19:43:00 EST, Weight Dosing dicyclomine, 20 mg = 2 mL, Injection, IntraMuscular, Once, Stop date 07/17/22 22:25:00 EST, STAT, Start date 07/17/22 22:25:00 EST, 07/17/22 22:25:00 EST HYDROmorphone, 1 mg = 1 mL, Injection, IV Push, Once, Stop date 07/17/22 19:53:00 EST, STAT, Start date 07/17/22 19:53:00 EST, 07/17/22 19:53:00 EST metoprolol, 5 mg = 5 mL, Injection, IV Push, Once, Stop date 07/17/22 22:12:00 EST, STAT, Start date 07/17/22 22:12:00 EST, 07/17/22 22:12:00 EST ondansetron, 4 mg = 2 mL, Injection, IV Push, Once, Stop date 07/17/22 19:53:00 EST, STAT, Start date 07/17/22 19:53:00 EST, 07/17/22 19:53:00 EST promethazine, 25 mg = 1 tab(s), Oral, q6hr, PRN as needed for nausea/vomiting, # 12 tab(s), Refills(s) 0, Pharmacy: [id number], 170, cm, 07/17/22 19:43:00 EST, Height/Length Dosing, 115.3, kg, 07/17/22 19:43:00 EST, Weight Dosing promethazine, 12.5 mg = 0.5 mL, Injection, IV Push, Once, Stop date 07/17/22 21:27:00 EST, STAT, Start date 07/17/22 21:27:00 EST, 07/17/22 21:27:00 EST Sodium Chloride 0.9% intravenous solution, 1,000 mL, Soln-IV, IV, Once, Stop date 07/17/22 19:53:00 EST, STAT, Start date 07/17/22 19:53:00 EST, mL/hr, Infuse over 61, minute(s) Automated Diff Basic Metabolic Panel CBC w/ Auto Diff ECG 12 Lead Adult eGFR Extra Blue Tube Extra SST Tube Hepatic Function Panel Magnesium Level Troponin 0 Hr. TSH With T4fr Reflex U Beta Hcg Qual UA With Cult Reflex Urine Culture US Renal Diagnostic Tests Pending * Urine Culture 07/17/22 [facility]12-22-2022 Evaluation + Plan noteExtracted from: Title:ED Note Author:Grey Putnam DO Date :06/19/22 UTI (urinary tract infection ) (N39.0: Urinary tract infection, site not specified) Orders: acetaminophen, 650 mg = 2 tab(s), Tab, Oral, Once, Stop date 06/18/22 23:50:00 EST, STAT, Start date 06/18/22 23:50:00 EST, 06/18/22 23:50:00 EST diphenhydrAMINE, 25 mg = 0.5 mL, Injection, IV Push, Once, Stop date 06/19/22 0:30:00 EST, STAT, Start date 06/19/22 0:30:00 EST, 06/19/22 0:30:00 EST HYDROmorphone, 0.5 mg = 0.5 mL, Injection, IV Push, Once, Stop date 06/19/22 1:13:00 EST, STAT, Start date 06/19/22 1:13:00 EST, 06/19/22 1:13:00 EST morphine, 4 mg = 2 mL, Injection, IV Push, Once, Stop date 06/19/22 0:30:00 EST, STAT, Start date 06/19/22 0:30:00 EST, 06/19/22 0:30:00 EST ondansetron, 4 mg = 2 mL, Injection, IV Push, Once, Stop date 06/18/22 23:50:00 EST, STAT, Start date 06/18/22 23:50:00 EST, 06/18/22 23:50:00 EST promethazine, 12.5 mg = 0.5 mL, Injection, IV Push, Once, Stop date 06/19/22 1:13:00 EST, STAT, Start date 06/19/22 1:13:00 EST, 06/19/22 1:13:00 EST Sodium Chloride 0.9% intravenous solution, 1,000 mL, Soln-IV, IV, Once, Stop date 06/18/22 23:50:00 EST, STAT, Start date 06/18/22 23:50:00 EST, mL/hr, Infuse over 61, minute(s) Automated Diff Basic Metabolic Panel CBC w/ Auto Diff CT Abdomen/Pelvis w/o Contrast eGFR Hepatic Function Panel Lipase Level UA With Cult Reflex Urine Culture Diagnostic Tests Pending * Urine Culture 06/18/22 [facility]12-22-2022 Hospital Discharge instructions Patient Education 06/19/2022 01:42:31 Urinary Tract Infection, Adult Urinary Tract Infection, Adult A urinary tract infection (UTI) is an infection of any part of the urinary tract. The urinary tractincludes the kidneys, ureters, bladder, and urethra. These organs make, store, and get rid of urinein the body. Your health care provider may use other names to describe the infection. An upper UTI affects the ureters and kidneys (pyelonephritis). A lower UTI affects the bladder (cystitis) and urethra (urethritis). What are the causes? Most urinary tract infections are caused by bacteria in your genital area, around the entrance to your urinary tract (urethra). These bacteria grow and cause inflammation of your urinary tract. What increases the risk? You are more likely to develop this condition if: You have a urinary catheter that stays in place (indwelling). You are not able to control when you urinate or have a bowel movement (you have incontinence). You are female and you: ?Use a spermicide or diaphragm for control. ?Have low estrogen levels. ?Are . You have certain genes that increase your risk (genetics). You are sexually active. You take antibiotic medicines. You have a condition that causes your flow of urine to slow down, such as: ?An enlarged prostate, if you are male. ?Blockage in your urethra (stricture). ?A kidney stone. ?A nerve condition that affects your bladder control (neurogenic bladder). ?Not getting enough to drink, or not urinating often. You have certain medical conditions, such as: ?Diabetes. ?A weak disease-fighting system (immunesystem). ?Sickle cell disease. ?Gout. ?Spinal cord injury. What are the signs or symptoms? Symptoms of this condition include: Needing to urinate right away (urgently). Frequent urination or passing small amounts of urine frequently. Pain or burning with urination. Blood in the urine. Urine that smells bad or unusual. Trouble urinating. Cloudy urine. Vaginal discharge, if you are female. Pain in the abdomen or the lower back. You may also have: Vomiting or a decreased appetite. Confusion. Irritability or tiredness. A fever. Diarrhea. The first symptom in older adults may be confusion. In some cases, they may not have any symptoms until the infection has worsened. How is this diagnosed? This condition is diagnosed based on your medical history and a physical exam. You may also have other tests, including: Urine tests. Blood tests. Tests for sexually transmitted infections (STIs). If you have had more than one UTI, a cystoscopy or imaging studies may be done to determine the cause of the infections. How is this treated? Treatment for this condition includes: Antibiotic medicine. Iqiz-mkh-gejdfra medicines to treat discomfort. Drinking enough water to stay hydrated. If you have frequent infections or have other conditions such as a kidney stone, you may need to see a health care provider who specializes in the urinary tract (urologist). In rare cases, urinary tract infections can cause sepsis. Sepsis is a life- threatening condition that occurs when the body responds to an infection. Sepsis is treated in the hospital with IV antibiotics, fluids, and other medicines. Follow these instructions at home: Medicines Take cnzg-zoo-urblqhe and prescription medicines only as told by your health care provider. If you were prescribed an antibiotic medicine, take it as told by your health care provider. Do notstop using the antibiotic even if you start to feel better. General instructions Make sure you: ?Empty your bladder often and completely. Do not hold urine for long periods of time. ?Empty your bladder after sex. ?Wipe from front to back after a bowel movement if you are female. Use each tissue one time when you wipe. Drink enough fluid to keep your urine pale yellow. Keep all follow-up visits as told by your health care provider. This is important. Contact a health care provider if: Your symptoms do not get better after 1 2 days. Your symptoms go away and then return. Get help right away if you have: Severe pain in your back or your lower abdomen. A fever. Nausea or vomiting. Summary A urinary tract infection (UTI) is an infection of any part of the urinary tract, which includes the kidneys, ureters, bladder, and urethra. Most urinary tract infections are caused by bacteria in your genital area, around the entrance to your urinary tract (urethra). Treatment for this condition often includes antibiotic medicines. If you were prescribed an antibiotic medicine, take it as told by your health care provider. Do notstop using the antibiotic even if you start to feel better. Keep all follow-up visits as told by your health care provider. This is important. This information is not intended to replace advice given to you by your health care provider. Make sure you discuss any questions you have with your health care provider. Document Released: 03/25/2006 Document Revised: 06/02/2019 Document Reviewed: 12/23/2018 WalkHub Patient Education 2020 [email or web address]. Follow Up Care 06/18/2022 22:49:19 With:SKYE JONES Address: [address] [place] [phone] Business (1) When:06/22/2022 Comments:And follow-up with patient established urologist. [facility]11-13-2022 Hospital Discharge instructions Patient Education 05/11/2022 20:07:26 Shoulder Pain, Moqp-ub-Utzg Shoulder Pain Many things can cause shoulder pain, including: An injury. Moving the shoulder in the same way again and again (overuse). Joint pain (arthritis). Pain can come from: Swelling and irritation (inflammation) of any part of the shoulder. An injury to the shoulder joint. An injury to: ?Tissues that connect muscle to bone (tendons). ?Tissues that connect bones to each other (ligaments). ?Bones. Follow these instructions at home: Watch for changes in your symptoms. Let your doctor know about them. Follow these instructions to help with your pain. If you have a sling: Wear the sling as told by your doctor. Remove it only as told by your doctor. Loosen the sling if your fingers: ?Tingle. ?Become numb. ?Turn cold and blue. Keep the sling clean. If the sling is not waterproof: ?Do not let it get wet. ?Take the sling off when you shower or bathe. Managing pain, stiffness, and swelling If told, put ice on the painful area: ? Put ice in a plastic bag. ?Place a towel between your skin and the bag. ?Leave the ice on for 20 minutes, 2 3 times a day. Stop putting ice on if it does not help with thepain. Squeeze a soft ball or a foam pad as much as possible. This prevents swelling in the shoulder. It also helps to strengthen the arm. General instructions Take eiux-rlo-wdcywsy and prescription medicines only as told by your doctor. Keep all follow-up visits as told by your doctor. This is important. Contact a doctor if: Your pain gets worse. Medicine does not help your pain. You have new pain in your arm, hand, or fingers. Get help right away if: Your arm, hand, or fingers: ?Tingle. ?Are numb. ?Are swollen. ?Are painful. ?Turn white or blue. Summary Shoulder pain can be caused by many things. These include injury, moving the shoulder in the same away again and again, and joint pain. Watch for changes in your symptoms. Let your doctor know about them. This condition may be treated with a sling, ice, and pain medicine. Contact your doctor if the pain gets worse or you have new pain. Get help right away if your arm, hand, or fingers tingle or get numb, swollen, or painful. Keep all follow-up visits as told by your doctor. This is important. This information is not intended to replace advice given to you by your health care provider. Make sure you discuss any questions you have with your health care provider. Document Released: 12/01/2008 Document Revised: 12/28/2018 Document Reviewed: 12/28/2018 [employer] Patient Education 2020 [email or web address]. 05/11/2022 20:07:26 Nausea and Vomiting, Adult, Ksoc-zb-Asnr Nausea and Vomiting, Adult Nausea is feeling sick to your stomach or feeling that you are about to throw up (vomit). Vomiting is when food in your stomach is thrown up and out of the mouth. Throwing up can make you feel weak. It can also make you lose too much water in your body (get dehydrated). If you lose too much water in your body, you may: Feel tired. Feel thirsty. Have a dry mouth. Have cracked lips. Go pee (urinate) less often. Older adults and people with other diseases or a weak body defense system (immune system) are at higher risk for losing too much water in the body. If you feel sick to your stomach and you throw up, it is important to follow instructions from your doctor about how to take care of yourself. Follow these instructions at home: Watch your symptoms for any changes. Tell your doctor about them. Follow these instructions to carefor yourself at home. Eating and drinking Take an ORS (oral rehydration solution). This is a drink that is sold at pharmacies and stores. Drink clear fluids in small amounts as you are able, such as: ?Water. ?Ice chips. ?Fruit juice that has water added (diluted fruit juice). ?Low-calorie sports drinks. Eat bland, qzbn-xk-knbrov foods in small amounts as you are able, such as: ?Bananas. ?Applesauce. ?Rice. ?Low-fat (lean) meats. ?[place]. ?Crackers. Avoid drinking fluids that have a lot of sugar or caffeine in them. This includes energy drinks, sports drinks, and soda. Avoid alcohol. Avoid spicy or fatty foods. General instructions Take zvjf-ude-imuuywp and prescription medicines only as told by your doctor. Drink enough fluid to keep your pee (urine) pale yellow. Wash your hands often with soap and water. If you cannot use soap and water, use hand manufacturer's representative. Make sure that all people in your home wash their hands well and often. Rest at home while you get better. Watch your condition for any changes. Take slow and deep breaths when you feel sick to your stomach. Keep all follow-up visits as told by your doctor. This is important. Contact a doctor if: Your symptoms get worse. You have new symptoms. You have a fever. You cannot drink fluids without throwing up. You feel sick to your stomach for more than 2 days. You feel light-headed or dizzy. You have a headache. You have muscle cramps. You have a rash. You have pain while peeing. Get help right away if: You have pain in your chest, neck, arm, or jaw. You feel very weak or you pass out (faint). You throw up again and again. You have throw up that is bright red or looks like black coffee grounds. You have bloody or black poop (stools) or poop that looks like tar. You have a very bad headache, a stiff neck, or both. You have very bad pain, cramping, or bloating in your belly (abdomen). You have trouble breathing. You are breathing very quickly. Your heart is beating very quickly. Your skin feels cold and clammy. You feel confused. You have signs of losing too much water in your body, such as: ?Dark pee, very little pee, or no pee. ?Cracked lips. ?Dry mouth. ?Sunken eyes. ?Sleepiness. ?Weakness. These symptoms may be an emergency. Do not wait to see if the symptoms will go away. Get medical help right away. Call your local emergency services (911 in the [place] Do not drive yourself to the hospital. Summary Nausea is feeling sick to your stomach or feeling that you are about to throw up (vomit). Vomiting is when food in your stomach is thrown up and out of the mouth. Follow instructions from your doctor about eating and drinking to keep from losing too much water in your body. Take ahvd-uwe-gzczlhb and prescription medicines only as told by your doctor. Contact your doctor if your symptoms get worse or you have new symptoms. Keep all follow-up visits as told by your doctor. This is important. This information is not intended to replace advice given to you by your health care provider. Make sure you discuss any questions you have with your health care provider. Document Released: 12/01/2008 Document Revised: 10/07/2019 Document Reviewed: 11/23/2018 [employer] Patient Education 2020 [email or web address]. Follow Up Care 05/11/2022 17:25:46 With:SKYE JONES Address: [address] [place] [phone] Business (1) When:05/14/2022 19:47:30 Comments:You can use the Zofran, Phenergan as prescribed as needed for nausea and vomiting. Please follow-upwith orthopedics for further evaluation management of your shoulder pain. Please return to the ED for any new or worsening symptoms. [facility]11-13-2022 Evaluation + Plan noteExtracted from: Title:ED Note Author:Sybil Muhammad DO Date :05/11/22 Acute postoperative pain of right shoulder (G89.18: Other acute postprocedural pain) Drug-seeking behavior (Z76.5: Malingerer [conscious simulation]) N&V (nausea and vomiting) (R11.2: Nausea with vomiting, unspecified) Pain in right shoulder (M25.511: Pain in right shoulder) Orders: HYDROmorphone, 1 mg = 1 mL, Injection, IntraMuscular, Once, Stop date 05/11/22 19:27:00 EST, STAT, Start date 05/11/22 19:27:00 EST, 05/11/22 19:27:00 EST ondansetron, 4 mg = 1 tab(s), Oral, q8hr, PRN Nausea/Vomiting, # 12 tab(s), Refills(s) 0, Pharmacy: [facility] #[id number], 170.2, cm, 05/11/22 17:35:00 EST, Height/Length Dosing, 107, kg, 05/11/22 17:35:00 EST, Weight Dosing promethazine, 25 mg = 1 mL, Injection, IntraMuscular, Once, Stop date 05/11/22 19:27:00 EST, STAT, Start date 05/11/22 19:27:00 EST, 05/11/22 19:27:00 EST promethazine, 25 mg = 1 supp, Rectal, q6hr, PRN Nausea/Vomiting, # 6 EA, Refills(s) 0, [facility]acy: [facility] #[id number], 170.2, cm, 05/11/22 17:35:00 EST, Height/Length Dosing, 107, kg, 05/11/22 17:35:00 EST, Weight Dosing [facility]10-28-2022 Hospital Discharge instructions Patient Education 04/25/2022 13:09:27 Post Op Patient Instructions - FT (CUSTOM) 04/25/2022 13:09:27 Shoulder Cryocuff Patient Instructions - FT (CUSTOM) 04/25/2022 10:45:45 Summer Watkins - After Your Shoulder Arthroscopy (Custom) [place], [place] [facility] AFTER YOUR SHOULDER ARTHROSCOPY 1.Diet: Begin with a liquid diet and advance to your normal diet as tolerated. 2.Activity: You may remove your sling for bathing and to perform gentle range of motion exercises for the hand,wrist, and elbow. Bend and straighten your elbow and wrist several times per day to minimize stiffness. Keep your elbow in close to your side when performing these exercises. Do not move your shoulder until instructed by your surgeon. Swelling after surgery is normal and this will gradually decrease over time. All sports activities are discouraged, at least until your first post-operative visit at which timewe will discuss how and when to resume sports. 3. Driving: Driving is legal. If you are involved in an accident, you must be able to prove that you maintainedfull control of your vehicle. For this reason, it is advised that you do not drive until your strength returns. You should not operate a vehicle or heavy machinery if you are taking narcotic pain medication. 4. Pain: If pain persists despite rest, elevation, and medication, contact your surgeon. You will be given a prescription for pain medications prior to leaving the hospital. Please inform us of any known drug allergy. If you have any problems with the medication, it should be discontinued and our office notified. The sensation of splashing of fluid inside the joint is not cause for concern. It represents residual fluids from surgery and they will be absorbed. Elevation of the arm and application of an ice pack will minimize swelling and discomfort in the first 48 hours after surgery. 5. Bandage: Soft compression dressing has been applied to your shoulder. This dressing should be comfortable and absorb any leakage of fluid or blood from your operated shoulder. Although the dressing may becomemoist or blood stained, this is not usually a cause for concern. If this persists, notify your surgeon. You may remove the dressing 48 hours after your surgery. If you have a bandage in your armpit, leave this in place until follow up. Apply betadine and band-aids to the small incisions once or twice daily as needed. 6.Incisions: The portals of entry may be sore and develop bruising over the next several days. The bruising eventually resolves and does not require any special care. Do not apply creams or lotions to your shoulder. Your portals will heal well on their own. 7.Bathing: You may shower 48 hours after surgery. Bathing or soaking in water should be avoided until your first post-operative visit. 8.Precautions: If you develop fever (101 degrees or above), increasing pain (not relieved by rest, elevation, ice,and medication as prescribed), redness or swelling in your shoulder or arm, please contact the office or the hospital. If you notice increased drainage from the operative portals after the third day,this should also be reported. 9.Return Visit: Your first post-operative follow-up appointment is generally between 7 and 14 days after discharge from the hospital. You will be given an appointment card with your appointment information. Do not hesitate to call the office or the hospital if any problems or questions arise before your appointment. Omi Watkins, DO [facility] [address] [place] [id number] Reviewed: Follow Up Care 03/26/2022 10:03:33 With:Omi Watkins Address: [address] [place] [phone] Business (1) When:05/06/2022 08:45:00 Comments:Call for any problems.Keep scheduled appointment [facility]10-25-2022 Hospital Discharge instructions Patient Education 04/22/2022 01:05:27 Abdominal Pain, Adult Abdominal Pain, Adult Pain in the abdomen (abdominal pain) can be caused by many things. Often, abdominal pain is not serious and it gets better with no treatment or by being treated at home. However, sometimes abdominal pain is serious. Your health care provider will ask questions about your medical history and do a physical exam to try to determine the cause of your abdominal pain. Follow these instructions at home: Medicines Take fvha-jce-cuzlbny and prescription medicines only as told by your health care provider. Do not take a laxative unless told by your health care provider. General instructions Watch your condition for any changes. Drink enough fluid to keep your urine pale yellow. Keep all follow-up visits as told by your health care provider. This is important. Contact a health care provider if: Your abdominal pain changes or gets worse. You are not hungry or you lose weight without trying. You are constipated or have diarrhea for more than 2 3 days. You have pain when you urinate or have a bowel movement. Your abdominal pain wakes you up at night. Your pain gets worse with meals, after eating, or with certain foods. You are vomiting and cannot keep anything down. You have a fever. You have blood in your urine. Get help right away if: Your pain does not go away as soon as your health care provider told you to expect. You cannot stop vomiting. Your pain is only in areas of the abdomen, such as the right side or the left lower portion of the abdomen. Pain on the right side could be caused by appendicitis. You have bloody or black stools, or stools that look like tar. You have severe pain, cramping, or bloating in your abdomen. You have signs of dehydration, such as: ?Dark urine, very little urine, or no urine. ?Cracked lips. ?Dry mouth. ?Sunken eyes. ?Sleepiness. ?Weakness. You have trouble breathing or chest pain. Summary Often, abdominal pain is not serious and it gets better with no treatment or by being treated at home. However, sometimes abdominal pain is serious. Watch your condition for any changes. Take owpz-zcz-sxybtsx and prescription medicines only as told by your health care provider. Contact a health care provider if your abdominal pain changes or gets worse. Get help right away if you have severe pain, cramping, or bloating in your abdomen. This information is not intended to replace advice given to you by your health care provider. Make sure you discuss any questions you have with your health care provider. Document Released: 03/25/2006 Document Revised: 10/24/2019 Document Reviewed: 10/24/2019 [employer] Patient Education 2020 [email or web address]. Follow Up Care 04/21/2022 21:20:04 With:SKYE JONES Address: [address] [place] [phone] Business (1) When:Within 3 Day(s) [facility]10-24-2022 Evaluation + Plan noteExtracted from: Title:ED Note Author:Grey Putnam DO Date :04/21/22 AP (abdominal pain) (R10.9: Unspecified abdominal pain) N&V (nausea and vomiting) (R11.2: Nausea with vomiting, unspecified) Orders: dicyclomine, 20 mg = 2 mL, Injection, IntraMuscular, Once, Stop date 04/22/22 0:29:00 EDT, STAT, Start date 04/22/22 0:29:00 EDT, 04/22/22 0:29:00 EDT dicyclomine, 10 mg = 1 cap(s), Oral, QID, PRN Pain, X 7 day(s), # 30 cap(s), Refills(s) 0, Pharmacy: [facility] #[id number], 170.2, cm, 04/21/22 21:37:00 EDT, Height/Length Dosing, 109, kg, 04/21/22 21:37:00 EDT, Weight Dosing diphenhydrAMINE, 25 mg = 0.5 mL, Injection, IV Push, Once, Stop date 04/21/22 22:07:00 EDT, STAT, Start date 04/21/22 22:07:00 EDT, 04/21/22 22:07:00 EDT HYDROmorphone, 0.5 mg = 0.5 mL, Injection, IV Push, Once, Stop date 04/21/22 23:05:00 EDT, STAT, Start date 04/21/22 23:05:00 EDT, 04/21/22 23:05:00 EDT morphine, 4 mg = 2 mL, Injection, IV Push, Once, Stop date 04/21/22 22:07:00 EDT, STAT, Start date 04/21/22 22:07:00 EDT, 04/21/22 22:07:00 EDT ondansetron, 4 mg = 2 mL, Injection, IV Push, Once, Stop date 04/21/22 22:07:00 EDT, STAT, Start date 04/21/22 22:07:00 EDT, 04/21/22 22:07:00 EDT promethazine, 12.5 mg = 1 tab(s), Oral, q8hr, PRN as needed for nausea/vomiting, # 20 tab(s), Refills(s) 0, Pharmacy: [facility] #[id number], 170.2, cm, 04/21/22 21:37:00 EDT, Height/Length Dosing, 109, kg, 04/21/22 21:37:00 EDT, Weight Dosing promethazine, 12.5 mg = 0.5 mL, Injection, IV Push, Once, Stop date 04/21/22 23:05:00 EDT, STAT, Start date 04/21/22 23:05:00 EDT, 04/21/22 23:05:00 EDT Sodium Chloride 0.9% intravenous solution, 1,000 mL, Soln-IV, IV, Once, Stop date 04/21/22 22:07:00 EDT, STAT, Start date 04/21/22 22:07:00 EDT, Infuse over 61, minute(s) Sodium Chloride 0.9% intravenous solution, Soln-IV, Misc, Once, Stop date 04/21/22 22:10:33 EDT, Physician Stop, 04/21/22 22:10:33 EDT Automated Diff Basic Metabolic Panel CBC w/ Auto Diff CT Abdomen/Pelvis w/ Contrast eGFR Extra Blue Tube Extra SST Tube Hepatic Function Panel Lipase Level UA With Cult Reflex Urine Culture Future Appointments Appointment Date:04/25/2022 10:30:00 AM Scheduled Provider: Location:[facility] Appointment Type:Surgery [facility]10-09-2022 Hospital Discharge instructions Additional Instructions Only use the arm sling as absolutely necessary to help support your shoulder, did not use it all the time as it can cause worsening symptoms Call your orthopedic doctor or family doctor tomorrow for a follow-up appointment this week do the shoulder exercises and stretches that are written below Continue your pain regimen and only use the [place] as needed and do not drive or operate heavy machinery while taking [facility] Work Phone: [phone] 623-620709-14-2022 Evaluation note* Encounter Date Diagnosis Assessment Notes Treatment Notes Treatment Clinical Notes Feb, Sore throat (ICD-10 - J02.9) Feb, Sinusitis, unspecified chronicity, unspecified location (ICD-10 - J32.9) Sinusitis home care material was printed Drink plenty fluids, get plenty of rest. Take Tylenol or Motrin as needed for aches pains or fevers. Take the prednisone as prescribed until gone. Use the Flonase inhaler as prescribed until your symptoms improve. Follow-up with your family physician if no improvement in 2 to 3 days. [facility] Other 09-11-2022 Hospital Discharge instructions Patient Education 03/08/2022 22:53:41 Urinary Tract Infection, Adult Urinary Tract Infection, Adult A urinary tract infection (UTI) is an infection of any part of the urinary tract. The urinary tractincludes the kidneys, ureters, bladder, and urethra. These organs make, store, and get rid of urinein the body. Your health care provider may use other names to describe the infection. An upper UTI affects the ureters and kidneys (pyelonephritis). A lower UTI affects the bladder (cystitis) and urethra (urethritis). What are the causes? Most urinary tract infections are caused by bacteria in your genital area, around the entrance to your urinary tract (urethra). These bacteria grow and cause inflammation of your urinary tract. What increases the risk? You are more likely to develop this condition if: You have a urinary catheter that stays in place (indwelling). You are not able to control when you urinate or have a bowel movement (you have incontinence). You are female and you: ?Use a spermicide or diaphragm for control. ?Have low estrogen levels. ?Are . You have certain genes that increase your risk (genetics). You are sexually active. You take antibiotic medicines. You have a condition that causes your flow of urine to slow down, such as: ?An enlarged prostate, if you are male. ?Blockage in your urethra (stricture). ?A kidney stone. ?A nerve condition that affects your bladder control (neurogenic bladder). ?Not getting enough to drink, or not urinating often. You have certain medical conditions, such as: ?Diabetes. ?A weak disease-fighting system (immunesystem). ?Sickle cell disease. ?Gout. ?Spinal cord injury. What are the signs or symptoms? Symptoms of this condition include: Needing to urinate right away (urgently). Frequent urination or passing small amounts of urine frequently. Pain or burning with urination. Blood in the urine. Urine that smells bad or unusual. Trouble urinating. Cloudy urine. Vaginal discharge, if you are female. Pain in the abdomen or the lower back. You may also have: Vomiting or a decreased appetite. Confusion. Irritability or tiredness. A fever. Diarrhea. The first symptom in older adults may be confusion. In some cases, they may not have any symptoms until the infection has worsened. How is this diagnosed? This condition is diagnosed based on your medical history and a physical exam. You may also have other tests, including: Urine tests. Blood tests. Tests for sexually transmitted infections (STIs). If you have had more than one UTI, a cystoscopy or imaging studies may be done to determine the cause of the infections. How is this treated? Treatment for this condition includes: Antibiotic medicine. Xbzk-lyw-xzyyava medicines to treat discomfort. Drinking enough water to stay hydrated. If you have frequent infections or have other conditions such as a kidney stone, you may need to see a health care provider who specializes in the urinary tract (urologist). In rare cases, urinary tract infections can cause sepsis. Sepsis is a life- threatening condition that occurs when the body responds to an infection. Sepsis is treated in the hospital with IV antibiotics, fluids, and other medicines. Follow these instructions at home: Medicines Take kbwg-wjw-mnczysy and prescription medicines only as told by your health care provider. If you were prescribed an antibiotic medicine, take it as told by your health care provider. Do notstop using the antibiotic even if you start to feel better. General instructions Make sure you: ?Empty your bladder often and completely. Do not hold urine for long periods of time. ?Empty your bladder after sex. ?Wipe from front to back after a bowel movement if you are female. Use each tissue one time when you wipe. Drink enough fluid to keep your urine pale yellow. Keep all follow-up visits as told by your health care provider. This is important. Contact a health care provider if: Your symptoms do not get better after 1 2 days. Your symptoms go away and then return. Get help right away if you have: Severe pain in your back or your lower abdomen. A fever. Nausea or vomiting. Summary A urinary tract infection (UTI) is an infection of any part of the urinary tract, which includes the kidneys, ureters, bladder, and urethra. Most urinary tract infections are caused by bacteria in your genital area, around the entrance to your urinary tract (urethra). Treatment for this condition often includes antibiotic medicines. If you were prescribed an antibiotic medicine, take it as told by your health care provider. Do notstop using the antibiotic even if you start to feel better. Keep all follow-up visits as told by your health care provider. This is important. This information is not intended to replace advice given to you by your health care provider. Make sure you discuss any questions you have with your health care provider. Document Released: 03/25/2006 Document Revised: 06/02/2019 Document Reviewed: 12/23/2018 [employer] Patient Education 2020 [employer] 03/08/2022 22:53:41 Flank Pain, Adult Flank Pain, Adult Flank pain is pain that is located on the side of the body between the upper abdomen and the back. This area is called the flank. The pain may occur over a short period of time (acute), or it may be long-term or recurring (chronic). It may be mild or severe. Flank pain can be caused by many things,including: Muscle soreness or injury. Kidney stones or kidney disease. Stress. A disease of the spine (vertebral disk disease). A lung infection (pneumonia). Fluid around the lungs (pulmonary edema). A skin rash caused by the chickenpox virus (shingles). Tumors that affect the back of the abdomen. Gallbladder disease. Follow these instructions at home: Drink enough fluid to keep your urine clear or pale yellow. Rest as told by your health care provider. Take vypg-zzo-qmjfpmm and prescription medicines only as told by your health care provider. Keep a journal to track what has caused your flank pain and what has made it feel better. Keep all follow-up visits as told by your health care provider. This is important. Contact a health care provider if: Your pain is not controlled with medicine. You have new symptoms. Your pain gets worse. You have a fever. Your symptoms last longer than 2 3 days. You have trouble urinating or you are urinating very frequently. Get help right away if: You have trouble breathing or you are short of breath. Your abdomen hurts or it is swollen or red. You have nausea or vomiting. You feel faint or you pass out. You have blood in your urine. Summary Flank pain is pain that is located on the side of the body between the upper abdomen and the back. The pain may occur over a short period of time (acute), or it may be long-term or recurring (chronic). It may be mild or severe. Flank pain can be caused by many things. Contact your health care provider if your symptoms get worse or they last longer than 2 3 days. This information is not intended to replace advice given to you by your health care provider. Make sure you discuss any questions you have with your health care provider. Document Released: 08/06/2006 Document Revised: 05/28/2018 Document Reviewed: 08/28/2017 [employer] Patient Education 2020 [employer] Follow Up Care 03/08/2022 19:48:00 With:SKYE JONES Address: [address] [place] [address] [phone] Business (1) When:03/11/2022 Comments:Return to the emergency room if your pain gets worse or any new symptoms [facility]09-10-2022 Evaluation + Plan note Diagnostic Tests Pending * Urine Culture 03/08/22 [facility]06-10-2022 Hospital course Narrative* Jameel Cadena MD - 12/06/2021 9:33 AM EDT DISCHARGE SUMMARY Patient: Gisel Carlton Date of : 1975 Site: [facility] Provider: Skye Jones CNP Admit Date: 12/03/2021 Discharge Date/Time: 12/06/21 Disposition: Home Clinical Summary Hospital Course: Gisel Carlton is a 46 y.o. female patient of Skye Jones CNP with history of recurrent/chronic back pain, IDDM2, GERD, nephrolithiasis, who presented with flank pain. Hypotension: Improved with IV fluids. Lactate was normal Resolved Flank pain with acute cystitis CT abdomen shows 3 mm renal stone. 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 Surgeries: None Consults: No orders of the defined types were placed in this encounter. Allergies: Fentanyl, Ciprofloxacin, Ketorolac, Meperidine, Morphine, Nalbuphine, Penicillins, Ciprofloxacin hcl, and Aspirin Discharge Diet: Condition: Fair Discharge Medications: Discharge Medications New Medications Details cefdinir 300 MG capsule Commonly known as: OMNICEF Take 1 (one) capsule (300 mg total) by mouth 2 (two) times a day for 3 days . Quantity: 6 capsule Medications To Continue Details ascorbic acid (vitamin C) 500 MG tablet Commonly known as: VITAMIN C Take 500 mg by mouth daily . blood-glucose meter kit 1 kit by Other route 4 (four) times a day before meals and nightly . celecoxib 200 MG capsule Commonly known as: CELEBREX Take 200 mg by mouth daily . gabapentin 600 MG tablet Commonly known as: NEURONTIN Take 600 mg by mouth 3 (three) times a day . ibuprofen 600 MG tablet Commonly known as: ADVIL,MOTRIN Take 1 tablet by mouth every 6 (six) hours as needed . insulin lispro 100 unit/mL Inpn Commonly known as: HumaLOG KwikPen Insulin Inject 12 (twelve) Units under the skin 3 (three) times a day before meals . Quantity: 15 mL metoclopramide 10 MG tablet Commonly known as: REGLAN Take 1 (one) tablet (10 mg total) by mouth 4 (four) times a day with meals and nightly . Quantity: 120 tablet NovoLOG Flexpen U-100 Insulin 100 unit/mL (3 mL) Inpn Generic drug: insulin aspart U-100 Inject 35 Units under the skin 3 (three) times a day before meals . omeprazole 20 MG capsule Commonly known as: PRILOSEC Take 20 mg by mouth daily . ondansetron 4 MG tablet Commonly known as: ZOFRAN Take 1 tablet by mouth 3 (three) times a day as needed for nausea or vomiting . Ozempic 0.25 mg or 0.5 mg(2 mg/1.5 mL) Pen Generic drug: semaglutide Inject 0.5 mg under the skin once a week . promethazine 25 MG tablet Commonly known as: PHENERGAN Take 1 (one) tablet (25 mg total) by mouth every 6 (six) hours as needed for nausea . Quantity: 10 tablet tiZANidine 4 MG tablet Commonly known as: ZANAFLEX Take 4 mg by mouth every 8 (eight) hours as needed TAKE NEEDED FOR MUSCLE SPASM . traZODone 100 MG tablet Commonly known as: DESYREL Take 100 mg by mouth nightly as needed FOR SLEEP . Tresiba FlexTouch U-100 100 unit/mL (3 mL) Inpn Generic drug: insulin degludec Up to 80 units daily UltiCare Pen Needle 32 gauge x Ndle Generic drug: pen needle, diabetic USE 1 PEN NEEDLE 4 TIMES DAILY BEFORE MEAL(S) AND NIGHTLY zinc sulfate 50 mg zinc (220 mg) capsule Commonly known as: ZINCATE Take 50 mg by mouth daily . Physician(s) Family Provider: Skye Jones CNP, Address: [address] [place] [address] / [place] [address] Follow Up: Skye Jones CNP [address] [place] [address] Follow up in 1 week(s) Additional Information: Patient instructions, including activity, were given to the patient/family at discharge. Please seethe After Visit Summary in the electronic medical record for details. Patient seen and evaluated on day of discharge. Patient remained stable with symptoms much improved. I have recommended outpatient follow-up with her primary care doctor and neurologist and she is inagreement with current discharge planning Time spent on discharge: > 30 minutes Completed by: Jameel Cadena MD on 12/06/21, 9:33 AM documented in this [id number] Consult note* Rachel Gann, PT - 12/05/2021 3:06 PM EDT Physical Therapy PHYSICAL THERAPY SCREEN Patient was screened by Physical Therapy. Upon review of the chart and discussion with the patient,no skilled Physical Therapy intervention is indicated. Patient has been up independently in room without AD. She has no further needs for PT at this time. Order discontinued at this time. [id number] Consult note* Rachel Gann, PT - 12/05/2021 3:06 PM EDT Physical Therapy PHYSICAL THERAPY SCREEN Patient was screened by Physical Therapy. Upon review of the chart and discussion with the patient,no skilled Physical Therapy intervention is indicated. Patient has been up independently in room without AD. She has no further needs for PT at this time. Order discontinued at this time. documented in this [id number] Note* ED Attestation Note - Cristi Feng MD - 12/05/2021 10:11 AM EDT ED Attestation: I have reviewed the Advanced Practice Provider's (LAZARO's) documention. In addition, I have personally introduced myself to the patient, and have taken her history and performed an examination. I agree with the physical findings, management, clinical impression and disposition. In brief, she is a 46 y.o. female who presents with a chief complaint of Flank Pain. After my evaluation, I noticed patient will be admitted. Has unexplained hypotension. Lactic acid normal. Is somewhat fluid responsive. Patient has normal white count. Afebrile. Work-up thus far is unremarkable. Will admit for the above. Cristi Feng MD ED Attending Physician Emergency Department (Please note that portions of this note have been completed with a voice recognition software. Efforts were made to correct any errors, but occasionally words are mis-transcribed.) [place] Work Phone: [phone]) 645-178306-09-2022 Miscellaneous Notes* ED Attestation Note - Cristi Feng MD - 12/05/2021 10:11 AM EDT ED Attestation: I have reviewed the Advanced Practice Provider's (LAZARO's) documention. In addition, I have personally introduced myself to the patient, and have taken her history and performed an examination. I agree with the physical findings, management, clinical impression and disposition. In brief, she is a 46 y.o. female who presents with a chief complaint of Flank Pain. After my evaluation, I noticed patient will be admitted. Has unexplained hypotension. Lactic acid normal. Is somewhat fluid responsive. Patient has normal white count. Afebrile. Work-up thus far is unremarkable. Will admit for the above. Cristi Feng MD ED Attending Physician Emergency Department (Please note that portions of this note have been completed with a voice recognition software. Efforts were made to correct any errors, but occasionally words are mis-transcribed.) * CDI Query - Jazlyn Norwood RN - 12/05/2021 10:09 AM EDT Noted Rocephin IVPB was started on 12/04. Clinical Indicators: PN 12/04: Abnormal UA-check urine culture and started on ceftriaxone CT abdomen shows 3 mm renal stone-could be source of some of her symptoms. 12/04 UA: yellow, cloudy, nitrite (-), leuk est mod, WBC 8 ED 12/03: Genitourinary: Positive for flank pain (right). Negative for decreased urine volume, difficulty urinating, dysuria, hematuria and vaginal discharge Please document the condition being treated with Rocephin in the progress note. For Example: UTI IV Rocephin to treat Other (please specify) Unable to determine Thank you, Jazlyn Norwood RN, BSN Clinical Shoe Salesperson [phone] After business hours you may contact Linda Damian at [phone] (Weekdays until 10 PM and weekends 8 AM - 10 PM) * Plan of Care - Quincy Johnson RN - 12/04/2021 9:18 AM EDT Problem: Actual or potential alteration in health Goal: Absence of healthcare acquired conditions Outcome: Partially Met Goal: Knowledge of Interdisciplinary Plan of Care Outcome: Partially Met Goal: Knowledge of Enviroment Outcome: Partially Met Problem: Pain Goal: Manage acute pain Outcome: Partially Met Goal: Manage chronic pain Outcome: Partially Met Goal: Reduced pain sensation Outcome: Partially Met Goal: Achievement of comfort function goal Outcome: Partially Met * ED Procedure Note - Cristi Feng MD - 12/04/2021 1:54 AM EDT Associated Order(s): ECG 12 Lead ECG 12 Lead Date/Time: 12/04/2021 1:54 AM Performed by: Cristi Feng MD Authorized by: Shruthi Christine CNP Interpreted by ED attending physician Comparison: not compared with previous ECG Rhythm: sinus rhythm BPM: 91 Conduction: conduction normal ST Segments: ST segments normal T Waves: T waves normal normal SC interval normal QRS interval QT Interval: 509 Other findings: prolonged QTc interval Clinical impression: non-specific ECG documented in this [id number] Note* CDI Query - Jazlyn Norwood RN - 12/05/2021 10:09 AM EDT Noted Rocephin IVPB was started on 12/04. Clinical Indicators: PN 12/04: Abnormal UA-check urine culture and started on ceftriaxone CT abdomen shows 3 mm renal stone-could be source of some of her symptoms. 12/04 UA: yellow, cloudy, nitrite (-), leuk est mod, WBC 8 ED 12/03: Genitourinary: Positive for flank pain (right). Negative for decreased urine volume, difficulty urinating, dysuria, hematuria and vaginal discharge Please document the condition being treated with Rocephin in the progress note. For Example: UTI IV Rocephin to treat Other (please specify) Unable to determine Thank you, Jazlyn Norwood RN, BSN Clinical Shoe Salesperson [phone] After business hours you may contact Linda Salgado at [phone] (Weekdays until 10 PM and weekends 8 AM - 10 PM) [id number] History of Present illness Narrative* Jameel Cadena MD - 12/05/2021 9:45 AM EDT [facility] [place]GRESS [place] Assessment and Plan Gisel Carlton is a 46 y.o. female patient of Skye Jones CNP with history of recurrent/chronic back pain, IDDM2, GERD, nephrolithiasis, who presented with flank pain. Hypotension: Improved with IV fluids. Lactate was normal Continue IV fluid hydration Continue treatment as below Flank pain with acute cystitis CT abdomen shows 3 mm renal stone. 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 Family Contact Information Code Status: Full Code Quality Measures DVT Prophylaxis: - enoxaparin (LOVENOX) syringe 40 mg Hurtado Catheter: Disposition Discharge Location: Estimated Discharge Date: tbd Outpatient Testing: Subjective Still has right-sided flank pain requiring IV pain medications. Has some nausea but denies any vomiting. Tolerating a diet. No fevers or chills no shortness of breath or chest pain. No acute event overnight per nurse Review of Systems All systems have been reviewed and are negative except as noted in HPI or below Objective BP 134/87 Pulse 85 Temp 97.7 F (36.5 C) (Oral) Resp 16 Ht 5' 7 Wt 99.8 kg (220 lb) SpO2 98% BMI 34.46 kg/m Physical Examination General Appearance: alert; acutely ill appearing; in no acute distress HEENT: Head- normocephalic; Eyes- EOMI, sclera anicteric; Ears- hearing intact; Nose- no nasal discharge; Throat- mucous membranes moist Cardiovascular: regular rate and rhythm; normal S1, S2; no murmurs, rubs, clicks or gallops; no peripheral edema Respiratory: lungs clear to auscultation; without wheezes, rales or rhonchi; on nasal canula Abdomen: soft, non-tender, non-distended; positive bowel sounds Neurological: oriented x 3; normal speech; no focal findings or movement disorder noted Musculoskeletal: no significant deformity or tenderness to palpation Skin: normal coloration; no obvious rashes, lesions or skin breakdown Psych: normal mood and affect Results/Medications Reviewed 12/05/2021 9:45 AM Laboratory, Microbiology, and Radiology CT abdomen personally reviewed shows no large small bowel obstruction * Jameel Cadena MD - 12/04/2021 9:43 AM EDT Patient seen and examined. Agree with H&P This morning patient tells me she still having right flank pain that is intermittent sharp in nature. She states she had this 2 weeks ago and was told she had a kidney stone and was monitored overnight in the hospital. At that time she said she was treated with antibiotic and felt better. Currentlydenies any fevers, chills, shortness of breath. No further vomiting since arrival to the hospital. Abdomen soft mild tenderness to palpation in the right flank. Lungs clear to auscultation bilateral Labs reviewed. Imaging reviewed Hypotension-improved with IV fluids. Continue IV fluid hydration. Lactate normal Abnormal UA-check urine culture and started on ceftriaxone CT abdomen shows 3 mm renal stone-could be source of some of her symptoms. Pain control and IV fluids as above documented in this [id number] Note* Plan of Care - Quincy Johnson RN - 12/04/2021 9:18 AM EDT Problem: Actual or potential alteration in health Goal: Absence of healthcare acquired conditions Outcome: Partially Met Goal: Knowledge of Interdisciplinary Plan of Care Outcome: Partially Met Goal: Knowledge of Enviroment Outcome: Partially Met Problem: Pain Goal: Manage acute pain Outcome: Partially Met Goal: Manage chronic pain Outcome: Partially Met Goal: Reduced pain sensation Outcome: Partially Met Goal: Achievement of comfort function goal Outcome: Partially Met [id number] History and physical note* Roshan Espino MD - 12/04/2021 4:20 AM EDT [facility] HISTORY AND PHYSICAL Patient Name: Gisel Carlton : 1975 MR #: [id number] Admit Date: 12/03/2021 Physicians: Skye Jones CNP (Family); No ref. provider found (Referring) Gisel Carlton is a 46 y.o. female patient of Skye Jones CNP with history of recurrent/chronic back pain, IDDM2, GERD, nephrolithiasis, who presented with flank pain. Hypotension: No concerning fever, leukocytosis, tachycardia, chest pain, SOB, or lab abnormalities Lactic acid 0.8 IVF bolus and trend BP EKG Sinus rhythm with Premature atrial complexes Orthostatic vitals Flank pain: CT angiogram of the chest unremarkable except for a possible developing pericardial cyst. CT abdomen and pelvis unremarkable Check LFTs, lipase, and D-dimer Continue home celecoxib PT/OT Prolonged QT: EKG with Qtc 509 ms Avoid QT prolonging medications including tizanidine, trazodone, and ondansetron Check magnesium level. 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 Admitted From: home Medication Reconciliation: Verified Code Status: Full Code Quality Measures DVT Prophylaxis: lovenox Hurtado Catheter: absent Admission does not require smart-phrase Chief Complaint Flank pain. History of Present Illness Gisel Carlton is a 46 y.o. female patient of Skye Jones CNP with history of recurrent/chronic back pain, IDDM2, GERD, nephrolithiasis, who presented with flank pain. Right side. Associated with nausea and vomiting and having a bowel movement 2 hours prior to arrival. Onset while casually sitting around. H/o kidney stones and ureteral stents in the past. Feels like this is the same. Moderate severity. Nothing makes it better or worse. No treatment prior to arrival. No fever, chills, cough, chest pain, SOB, palpitations, syncope, abdominal pain, diarrhea, dysuria, hematuria, leg swelling, calf pain. She was noted to have BP 80s/60s in the ED. Past Medical History Past Medical History: Diagnosis Date Diabetes mellitus (HCC) Diabetes mellitus, type 2 (HCC) Flank pain GERD (gastroesophageal reflux disease) History of kidney stones Hx: UTI (urinary tract infection) Past Surgical History Past Surgical History: Procedure Laterality Date ADENOIDS CARPAL TUNNEL RELEASE Bilateral CHOLECYSTECTOMY CYSTO RETRO STONE MANIPULATION STENT INSERTION Right 01/30/2021 Procedure: CYSTOSCOPY WITH STENT URETEROSCOPY WITH HOLMIUM LASER; Surgeon: Tim Roper MD; Location: Main OR; Service: Urology CYSTO URETERAL STENT REMOVAL 02/06/2021 HERNIA REPAIR HYSTERECTOMY LEG SURGERY TONSILLECTOMY Family History Family History Problem Relation Age of Onset Heart disease Father Social History Social History Tobacco Use Smoking Status Never Smokeless Tobacco Never Social History Substance and Sexual Activity Alcohol Use Never Social History Substance and Sexual Activity Drug Use Never Allergy Information I have reviewed the patient's allergies. Fentanyl, Ciprofloxacin, Ketorolac, Meperidine, Morphine, Nalbuphine, Penicillins, Ciprofloxacin hcl, and Aspirin Home Medications Home medications were reviewed. Review Of Systems All systems have been reviewed and are negative except as noted in HPI or below Physical Examination BP 94/61 (BP Location: Right arm, Patient Position: Lying) Pulse (!) 100 Temp 98.3 F (36.8 C) (Oral) Resp 17 Ht 5' 7 Wt 99.8 kg (220 lb) SpO2 92% BMI 34.46 kg/m General Appearance: alert; well appearing; in no acute distress HEENT: Head- normocephalic; Eyes- EOMI, sclera anicteric; Ears- hearing intact; Nose- no nasal discharge; Throat- mucous membranes moist Cardiovascular: regular rate and rhythm; normal S1, S2; no murmurs, rubs, clicks or gallops; no peripheral edema Respiratory: lungs clear to auscultation; without wheezes, rales or rhonchi; on room air Abdomen: soft, non-tender, non-distended; positive bowel sounds Neurological: oriented x 3; normal speech; no focal findings or movement disorder noted Musculoskeletal: no significant deformity or tenderness to palpation Skin: normal coloration; no obvious rashes, lesions or skin breakdown Psych: normal mood and affect Laboratory and Additional Data Reviewed Laboratory 12/04/21 4:47 AM Microbiology 12/04/21 4:47 AM Radiology 12/04/21 4:47 AM Cardiology 12/04/21 4:47 AM Medications 12/04/21 4:47 AM Transcriptions 12/04/21 4:47 AM [id number] History and physical note* Roshan Espino MD - 12/04/2021 4:20 AM EDT [facility] HISTORY AND PHYSICAL Patient Name: Gisel Carlton : 1975 MR #: [id number] Admit Date: 12/03/2021 Physicians: Skye Jones CNP (Family); No ref. provider found (Referring) Gisel Carlton is a 46 y.o. female patient of Skye Jones CNP with history of recurrent/chronic back pain, IDDM2, GERD, nephrolithiasis, who presented with flank pain. Hypotension: No concerning fever, leukocytosis, tachycardia, chest pain, SOB, or lab abnormalities Lactic acid 0.8 IVF bolus and trend BP EKG Sinus rhythm with Premature atrial complexes Orthostatic vitals Flank pain: CT angiogram of the chest unremarkable except for a possible developing pericardial cyst. CT abdomen and pelvis unremarkable Check LFTs, lipase, and D-dimer Continue home celecoxib PT/OT Prolonged QT: EKG with Qtc 509 ms Avoid QT prolonging medications including tizanidine, trazodone, and ondansetron Check magnesium level. 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 Admitted From: home Medication Reconciliation: Verified Code Status: Full Code Quality Measures DVT Prophylaxis: lovenox Hurtado Catheter: absent Admission does not require smart-phrase Chief Complaint Flank pain. History of Present Illness Gisel Carlton is a 46 y.o. female patient of Skye Jones CNP with history of recurrent/chronic back pain, IDDM2, GERD, nephrolithiasis, who presented with flank pain. Right side. Associated with nausea and vomiting and having a bowel movement 2 hours prior to arrival. Onset while casually sitting around. H/o kidney stones and ureteral stents in the past. Feels like this is the same. Moderate severity. Nothing makes it better or worse. No treatment prior to arrival. No fever, chills, cough, chest pain, SOB, palpitations, syncope, abdominal pain, diarrhea, dysuria, hematuria, leg swelling, calf pain. She was noted to have BP 80s/60s in the ED. Past Medical History Past Medical History: Diagnosis Date Diabetes mellitus (HCC) Diabetes mellitus, type 2 (HCC) Flank pain GERD (gastroesophageal reflux disease) History of kidney stones Hx: UTI (urinary tract infection) Past Surgical History Past Surgical History: Procedure Laterality Date ADENOIDS CARPAL TUNNEL RELEASE Bilateral CHOLECYSTECTOMY CYSTO RETRO STONE MANIPULATION STENT INSERTION Right 01/30/2021 Procedure: CYSTOSCOPY WITH STENT URETEROSCOPY WITH HOLMIUM LASER; Surgeon: Tim Roper MD; Location: Main OR; Service: Urology CYSTO URETERAL STENT REMOVAL 02/06/2021 HERNIA REPAIR HYSTERECTOMY LEG SURGERY TONSILLECTOMY Family History Family History Problem Relation Age of Onset Heart disease Father Social History Social History Tobacco Use Smoking Status Never Smokeless Tobacco Never Social History Substance and Sexual Activity Alcohol Use Never Social History Substance and Sexual Activity Drug Use Never Allergy Information I have reviewed the patient's allergies. Fentanyl, Ciprofloxacin, Ketorolac, Meperidine, Morphine, Nalbuphine, Penicillins, Ciprofloxacin hcl, and Aspirin Home Medications Home medications were reviewed. Review Of Systems All systems have been reviewed and are negative except as noted in HPI or below Physical Examination BP 94/61 (BP Location: Right arm, Patient Position: Lying) Pulse (!) 100 Temp 98.3 F (36.8 C) (Oral) Resp 17 Ht 5' 7 Wt 99.8 kg (220 lb) SpO2 92% BMI 34.46 kg/m General Appearance: alert; well appearing; in no acute distress HEENT: Head- normocephalic; Eyes- EOMI, sclera anicteric; Ears- hearing intact; Nose- no nasal discharge; Throat- mucous membranes moist Cardiovascular: regular rate and rhythm; normal S1, S2; no murmurs, rubs, clicks or gallops; no peripheral edema Respiratory: lungs clear to auscultation; without wheezes, rales or rhonchi; on room air Abdomen: soft, non-tender, non-distended; positive bowel sounds Neurological: oriented x 3; normal speech; no focal findings or movement disorder noted Musculoskeletal: no significant deformity or tenderness to palpation Skin: normal coloration; no obvious rashes, lesions or skin breakdown Psych: normal mood and affect Laboratory and Additional Data Reviewed Laboratory 12/04/21 4:47 AM Microbiology 12/04/21 4:47 AM Radiology 12/04/21 4:47 AM Cardiology 12/04/21 4:47 AM Medications 12/04/21 4:47 AM Transcriptions 12/04/21 4:47 AM documented in this [id number] Note* ED Procedure Note - Cristi Feng MD - 12/04/2021 1:54 AM EDTAssociated Order(s): ECG 12 Lead ECG 12 Lead Date/Time: 12/04/2021 1:54 AM Performed by: Cristi Feng MD Authorized by: Shruthi Christine CNP Interpreted by ED attending physician Comparison: not compared with previous ECG Rhythm: sinus rhythm BPM: 91 Conduction: conduction normal ST Segments: ST segments normal T Waves: T waves normal normal SC interval normal QRS interval QT Interval: 509 Other findings: prolonged QTc interval Clinical impression: non-specific ECG [id number] Emergency department Note* Erika Lew RN - 12/03/2021 11:51 PM EDT Manual BP 92/62 measured at this time. FACTORY EXPERT Shruthi aware. [id number] Emergency department Note* Erika Lew RN - 12/03/2021 11:51 PM EDT Manual BP 92/62 measured at this time. FACTORY EXPERT Shruthi aware. * Sybil Wilson RN - 12/03/2021 11:17 PM EDT THIS RN ATTEMPTED IV STARTX2, VEIN BLEW; UNSUCCESSFUL * Erika Lew RN - 12/03/2021 11:13 PM EDT BP monitoring increased to q15min for hypotension. Secondary RN bedside for IV attempt, this RN unsuccessful x2. * Shruthi Christine CNP - 12/03/2021 11:05 PM EDT ED PROVIDER NOTE [facility] EMERGENCY DEPARTMENT NAME: Gisel Carlton AGE: 46 y.o. 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 History of previous kidney stones with surgery and subsequent stent placement, reports feels similar. 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 Past Medical History: Diagnosis Date Diabetes mellitus (HCC) Diabetes mellitus, type 2 (HCC) GERD (gastroesophageal reflux disease) History of kidney stones Hx: UTI (urinary tract infection) Past Surgical History: Procedure Laterality Date ADENOIDS CARPAL TUNNEL RELEASE Bilateral CHOLECYSTECTOMY CYSTO RETRO STONE MANIPULATION STENT INSERTION Right 01/30/2021 Procedure: CYSTOSCOPY WITH STENT URETEROSCOPY WITH HOLMIUM LASER; Surgeon: Tim Roper MD; Location: Main OR; Service: Urology CYSTO URETERAL STENT REMOVAL 02/06/2021 HERNIA REPAIR HYSTERECTOMY LEG SURGERY TONSILLECTOMY History reviewed. No pertinent family history. Social History Socioeconomic History Marital status: Single Tobacco Use Smoking status: Never Smokeless tobacco: Never Vaping Use Vaping Use: Never used Substance and Sexual Activity Alcohol use: Never Drug use: Never Previous Medications Medication Sig ascorbic acid, vitamin C, (VITAMIN C) 500 MG tablet Take 500 mg by mouth daily . blood-glucose meter kit 1 kit by Other route 4 (four) times a day before meals and nightly . celecoxib (CELEBREX) 100 MG capsule Take 100 mg by mouth 2 (two) times a day . ergocalciferol (ERGOCALCIFEROL) 1,250 mcg (50,000 unit) capsule Take 50,000 Units by mouth once a week . gabapentin (NEURONTIN) 300 MG capsule Take 600 mg by mouth 3 (three) times a day . ibuprofen (ADVIL,MOTRIN) 600 MG tablet Take 1 tablet by mouth every 6 (six) hours as needed . insulin degludec (Tresiba FlexTouch U-100) 100 unit/mL (3 mL) InPn Up to 80 units daily insulin lispro (HumaLOG KwikPen Insulin) 100 unit/mL InPn Inject 12 (twelve) Units under the skin 3(three) times a day before meals . (Patient taking differently: Inject 30 Units under the skin 3 (three) times a day before meals As needed .) metoclopramide (REGLAN) 10 MG tablet Take 1 (one) tablet (10 mg total) by mouth 4 (four) times a day with meals and nightly . omeprazole (PRILOSEC) 20 MG capsule Take 20 mg by mouth daily . pen needle, diabetic (INSULIN PEN NEEDLE MISC) 1 each by NOT APPLICABLE route 4 (four) times a day before meals and nightly . promethazine (PHENERGAN) 25 MG tablet Take 1 (one) tablet (25 mg total) by mouth every 6 (six) hours as needed for nausea . semaglutide (Ozempic) 0.25 mg or 0.5 mg(2 mg/1.5 mL) Pen Inject 0.5 mg under the skin once a week . tiZANidine (ZANAFLEX) 2 MG tablet Take 4 mg by mouth 3 (three) times a day . traZODone (DESYREL) 100 MG tablet Take 100 mg by mouth nightly as needed FOR SLEEP . Unifine Pentips 31 gauge x 3/16 Ndle use 4 times daily as directed with insulin injections [DISCONTINUED] ondansetron (ZOFRAN-ODT) 4 MG disintegrating tablet Dissolve 1 (one) tablet (4 mg total) on top of tongue every 8 (eight) hours as needed . Allergies Allergen Reactions Fentanyl Rash Other reaction(s): Hives, Hives/Urticaria Ciprofloxacin Hives and Rash Other reaction(s): Hives/Urticaria Ketorolac Hives and Itching Other reaction(s): Hives, Hives/Urticaria Meperidine Hives Other reaction(s): Hives/Urticaria Morphine Hives Patient tolerates hydromorphone Other reaction(s): Hives, Hives/Urticaria, Unknown Reaction Nalbuphine Hives Other reaction(s): Hives, Hives/Urticaria Penicillins Hives Tolerates cefazolin Other reaction(s): Hives, Hives/Urticaria Ciprofloxacin Hcl Hives Aspirin Other (See Comments) Pt states gives me nosebleeds nosebleeds nosebleeds Review of Systems Constitutional: Negative. Respiratory: Negative. Cardiovascular: Negative. Gastrointestinal: Positive for nausea and vomiting. Negative for abdominal pain. Genitourinary: Positive for flank pain (right). Negative for decreased urine volume, difficulty urinating, dysuria, hematuria and vaginal discharge. Skin: Negative. Patient Vitals for the past 24 hrs: BP Temp Temp src Pulse Resp SpO2 Height Weight 12/04/21 0332 (!) 89/55 -- -- -- -- -- -- -- 12/04/21 0330 (!) 89/55 -- -- 91 (!) 22 98 % -- -- 12/04/21 0315 (!) 89/57 -- -- 91 17 96 % -- -- 12/04/21 0300 (!) 93/59 -- -- 89 17 97 % -- -- 12/04/21 0245 101/63 -- -- 91 15 96 % -- -- 12/04/21 0236 -- -- -- -- -- (!) 87 % -- -- 12/04/21 0233 102/65 -- -- 97 -- -- -- -- 12/04/21 0230 (!) 87/61 -- -- 97 -- -- -- -- 12/04/21 0227 104/63 -- -- 89 -- -- -- -- 12/04/21 0215 (!) 85/58 -- -- 97 16 96 % -- -- 12/04/21 0208 (!) 80/55 -- Oral 90 16 94 % -- -- 12/04/21 0200 (!) 82/58 -- -- 91 18 91 % -- -- 12/04/21 0145 (!) 87/59 -- -- 94 (!) 25 94 % -- -- 12/04/21 0130 105/64 -- -- 95 (!) 22 91 % -- -- 12/04/21 0115 94/61 -- -- 94 (!) 21 95 % -- -- 12/04/21 0100 95/66 -- -- 95 (!) 21 94 % -- -- 12/04/21 0051 (!) 89/65 -- -- (!) 102 18 95 % -- -- 12/04/21 0031 (!) 87/60 -- -- 97 17 92 % -- -- 12/04/21 0016 (!) 82/55 -- -- 98 (!) 21 91 % -- -- 12/04/21 0000 (!) 86/60 -- -- (!) 105 (!) 22 93 % -- -- 12/03/21 2334 98/62 -- -- (!) 105 (!) 22 95 % -- -- 12/03/21 2315 (!) 83/63 -- -- (!) 106 17 94 % -- -- 12/03/21 2202 128/82 98.3 F (36.8 C) Oral (!) 130 16 96 % 5' 7 99.8 kg (220 lb) Physical Exam Constitutional: Appearance: She is obese. Cardiovascular: Rate and Rhythm: Regular rhythm. Tachycardia present. Pulses: Normal pulses. Heart sounds: Normal heart sounds. Pulmonary: Effort: Pulmonary effort is normal. Breath sounds: Normal breath sounds. Abdominal: General: Bowel sounds are normal. Palpations: Abdomen is soft. Tenderness: There is no abdominal tenderness. There is right CVA tenderness. Musculoskeletal: General: Normal range of motion. Skin: General: Skin is warm and dry. Capillary Refill: Capillary refill takes less than 2 seconds. Neurological: General: No focal deficit present. Mental Status: She is alert and oriented to person, place, and time. Laboratory & Radiographic Imaging (if done): Results for orders placed or performed during the hospital encounter of 12/03/21 BMP Result Value Ref Range Sodium 140 135 - 145 mmol/L Potassium 3.6 3.5 - 5.1 mmol/L Chloride 107 98 - 108 mmol/L Bicarbonate 27 21 - 32 mmol/L Anion Gap 10 10 - 20 mmol/L Glucose 163 (H) 65 - 99 mg/dL BUN 17 8 - 25 mg/dL Creatinine 0.81 0.40 - 1.10 mg/dL eGFR 91 >=60 mL/min/1.73 m2 BUN/Creatinine Ratio 21.0 (H) 10.0 - 20.0 Calcium 9.2 8.4 - 10.2 mg/dL Urinalysis Result Value Ref Range Color, Urine Yellow Colorless, Yellow Clarity, Urine Cloudy (A) Clear Specific [place] 1.045 (H) 1.005 - 1.025 pH, Urine 5.5 5.0 - 7.0 Protein, Urine Negative Negative mg/dL Glucose, Urine >=500 (A) Negative mg/dL Ketones, Urine Trace (A) Negative mg/dL Bilirubin, Urine Negative Negative Urobilinogen, Urine <2.0 <2.0 mg/dL Blood, Urine Large (A) Negative Nitrite, Urine Negative Negative Leukocyte Esterase, Urine Moderate (A) Negative WBCs, Urine 8 (H) 0 - 5 /hpf RBCs, Urine >180 (H) 0 - 3 /hpf Bacteria, Urine None Seen None Seen /hpf Squamous Epithelial 18 (H) 0 - 4 /hpf Mucus, Urine Many (A) None Seen, Rare /lpf Urine Drug Screen Result Value Ref Range Amphetamine Screen, Urine None Detected None Detected Barbiturate Screen, Urine None Detected None Detected Benzodiazepine Screen, Urine None Detected None Detected Cannabinoid Screen, Urine None Detected None Detected Cocaine, Screen Urine None Detected None Detected Methadone Screen, Urine None Detected None Detected Opiate Screen, Urine None Detected None Detected Oxycodone Screen, Urine None Detected None Detected Buprenorphine, Ur None Detected None Detected Fentanyl, Ur None Detected None Detected Lactic Acid, Plasma Result Value Ref Range Lactic Acid 0.8 0.6 - 2.0 mmol/L Troponin Result Value Ref Range Troponin I <3 <=59 ng/L Troponin I Interpretation Normal CBC Auto Differential Result Value Ref Range WBC 6.28 4.50 - 11.00 K/mcL RBC 4.46 4.00 - 5.20 M/mcL Hemoglobin 13.8 12.0 - 16.0 g/dL Hematocrit 39.3 36.0 - 46.0 % MCV 88.1 80.0 - 100.0 fL MCH 30.9 26.0 - 34.0 pg MCHC 35.1 31.0 - 37.0 g/dL Platelets 237 150 - 400 K/mcL RDW - CV 12.1 11.6 - 14.8 % MPV 9.1 (L) 9.4 - 12.4 fL Neutrophils 49.6 % Lymphocytes 32.0 % Monocytes 8.3 % Eosinophils 8.9 % Basophils 1.0 % IG Percent 0.20 % Neutrophils Abs 3.12 1.70 - 7.00 K/mcL Lymphocytes Abs 2.01 0.90 - 4.00 K/mcL Monocytes Abs 0.52 0.30 - 0.90 K/mcL Eosinophils Abs 0.56 (H) 0.00 - 0.50 K/mcL Basophils Abs 0.06 0.00 - 0.30 K/mcL IG Absolute 0.01 0.00 - 0.30 K/mcL Nucleated RBC 0.0 % Nucleated RBC Abs 0.00 0.00 - 0.00 K/mcL CT Angiogram Chest Abdomen Pelvis Preliminary Result AORTA: 1. Intact thoracic and abdominal aorta with normal caliber, patent major branches and no atherosclerotic disease. 2. Normal appearance of bilateral common, internal, external iliac arteries and imaged femoral arteries. CHEST: 1. Bilateral air trapping. No airway occlusion or bronchial wall thickening. 2. Intermediate density circumscribed fluid collection is increased in volume when compared to prior CT from 01/26/2021 but likely represents a developing pericardiac cyst. No large mediastinal hematoma. This finding could be re- evaluated with follow-up nonemergent noncontrast chest CT to reassess the density of this fluid. 3. No thoracic adenopathy. 4. No cardiac chamber or pulmonary arterial filling defects. ABDOMEN/PELVIS: 1. No acute abdominal or pelvic inflammatory process. 2. Normal appendix and no adenopathy. VKR/hff Workstation ID: [id number] CT Kidney Stone Final Result 3 mm right superior renal stone without hydroureteronephrosis. No discrete large radiopaque obstructing ureteral stone. Multiple calcified pelvic phleboliths. Colonic diverticula without diverticulitis. Workstation ID: [id number] Procedures MDM Number of Diagnoses or Management Options Hypotension, unspecified hypotension type Right flank pain Diagnosis management comments: Upon examination, patient sitting up in bed no distress noted. Alertand oriented answering questions appropriately. Patient is tachycardic at a rate of 130, blood pressure 128/82. Previous kidney stones, reports symptoms at this time similar. Listed allergy to morphine and ketorolac, however, patient states that she has received Dilaudid without issues. However, Dilaudid was held due to systolic blood pressure of 89. Patient denies low blood pressuresin the 80s. She does not take any medication for HTN. Discussed case with Dr. Feng who did independently examine and evaluate patient. CT kidney stone shows: 3 mm right superior renal stone without hydroureteronephrosis. No discrete large radiopaque obstructing ureteral stone. Multiple calcified pelvic phleboliths. Colonic diverticula without diverticulitis. UA does not reflect infection, does show blood. Labs unremarkable with exception of glucose slightly elevated 163. Patient is known IDDM. EKG reviewed by Dr. Feng, shows no acute ischemia. CTA shows: AORTA: 1. Intact thoracic and abdominal aorta with normal caliber, patent major branches and no atherosclerotic disease. 2. Normal appearance of bilateral common, internal, external iliac arteries and imaged femoral arteries. CHEST: 1. Bilateral air trapping. No airway occlusion or bronchial wall thickening. 2. Intermediate density circumscribed fluid collection is increased in volume when compared to prior CT from 01/26/2021 but likely represents a developing pericardiac cyst. No large mediastinal hematoma. This finding could be re- evaluated with follow-up nonemergent noncontrast chest CT to reassess the density of this fluid. 3. No thoracic adenopathy. 4. No cardiac chamber or pulmonary arterial filling defects. ABDOMEN/PELVIS: 1. No acute abdominal or pelvic inflammatory process. 2. Normal appendix and no adenopathy. Despite 2 L normal saline, patient's blood pressure remains in the high 80s, currently 89/57. Heartrate 91. Orthostats negative, patient asymptomatic with position changes per nursing. Discussed all results with patient as well as recommendation for admission given her degree of continued hypotension, she verbalizes understanding and is in agreement. I spoke with Dr. Vo hospitalist, patient will be admitted observation status. . . Clinical Impression: 1. Hypotension, unspecified hypotension type 2. Right flank pain ED Disposition ED Disposition Hospitalize Condition -- Comment -- Follow-up Information Follow-up information has not been specified. Contact information for after-discharge care Follow-up information has not been specified. Shruthi Christine CNP 12/04/21 0337 * Aleena Light RN - 12/03/2021 10:02 PM EDT PT C/O RIGHT SIDED FLANK PAIN THAT STARTED 2 HRS AGO, STATES SHE HAS VOMITED FOUR TIMES IN THE LAST TWO HOURS documented in this [id number] Emergency department Note* Sybil Wilson RN - 12/03/2021 11:17 PM EDT THIS RN ATTEMPTED IV STARTX2, VEIN BLEW; UNSUCCESSFUL [id number] Emergency department Note* Erika Lew RN - 12/03/2021 11:13 PM EDT BP monitoring increased to q15min for hypotension. Secondary RN bedside for IV attempt, this RN unsuccessful x2. [id number] Physician Emergency department Note* Shruthi Christine CNP - 12/03/2021 11:05 PM EDT ED PROVIDER NOTE [facility] EMERGENCY DEPARTMENT NAME: Gisel Carlton AGE: 46 y.o. 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 History of previous kidney stones with surgery and subsequent stent placement, reports feels similar. 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 Past Medical History: Diagnosis Date Diabetes mellitus (HCC) Diabetes mellitus, type 2 (HCC) GERD (gastroesophageal reflux disease) History of kidney stones Hx: UTI (urinary tract infection) Past Surgical History: Procedure Laterality Date ADENOIDS CARPAL TUNNEL RELEASE Bilateral CHOLECYSTECTOMY CYSTO RETRO STONE MANIPULATION STENT INSERTION Right 01/30/2021 Procedure: CYSTOSCOPY WITH STENT URETEROSCOPY WITH HOLMIUM LASER; Surgeon: Tim Roper MD; Location: Main OR; Service: Urology CYSTO URETERAL STENT REMOVAL 02/06/2021 HERNIA REPAIR HYSTERECTOMY LEG SURGERY TONSILLECTOMY History reviewed. No pertinent family history. Social History Socioeconomic History Marital status: Single Tobacco Use Smoking status: Never Smokeless tobacco: Never Vaping Use Vaping Use: Never used Substance and Sexual Activity Alcohol use: Never Drug use: Never Previous Medications Medication Sig ascorbic acid, vitamin C, (VITAMIN C) 500 MG tablet Take 500 mg by mouth daily . blood-glucose meter kit 1 kit by Other route 4 (four) times a day before meals and nightly . celecoxib (CELEBREX) 100 MG capsule Take 100 mg by mouth 2 (two) times a day . ergocalciferol (ERGOCALCIFEROL) 1,250 mcg (50,000 unit) capsule Take 50,000 Units by mouth once a week . gabapentin (NEURONTIN) 300 MG capsule Take 600 mg by mouth 3 (three) times a day . ibuprofen (ADVIL,MOTRIN) 600 MG tablet Take 1 tablet by mouth every 6 (six) hours as needed . insulin degludec (Tresiba FlexTouch U-100) 100 unit/mL (3 mL) InPn Up to 80 units daily insulin lispro (HumaLOG KwikPen Insulin) 100 unit/mL InPn Inject 12 (twelve) Units under the skin 3(three) times a day before meals . (Patient taking differently: Inject 30 Units under the skin 3 (three) times a day before meals As needed .) metoclopramide (REGLAN) 10 MG tablet Take 1 (one) tablet (10 mg total) by mouth 4 (four) times a day with meals and nightly . omeprazole (PRILOSEC) 20 MG capsule Take 20 mg by mouth daily . pen needle, diabetic (INSULIN PEN NEEDLE MISC) 1 each by NOT APPLICABLE route 4 (four) times a day before meals and nightly . promethazine (PHENERGAN) 25 MG tablet Take 1 (one) tablet (25 mg total) by mouth every 6 (six) hours as needed for nausea . semaglutide (Ozempic) 0.25 mg or 0.5 mg(2 mg/1.5 mL) Pen Inject 0.5 mg under the skin once a week . tiZANidine (ZANAFLEX) 2 MG tablet Take 4 mg by mouth 3 (three) times a day . traZODone (DESYREL) 100 MG tablet Take 100 mg by mouth nightly as needed FOR SLEEP . Unifine Pentips 31 gauge x 3/16 Ndle use 4 times daily as directed with insulin injections [DISCONTINUED] ondansetron (ZOFRAN-ODT) 4 MG disintegrating tablet Dissolve 1 (one) tablet (4 mg total) on top of tongue every 8 (eight) hours as needed . Allergies Allergen Reactions Fentanyl Rash Other reaction(s): Hives, Hives/Urticaria Ciprofloxacin Hives and Rash Other reaction(s): Hives/Urticaria Ketorolac Hives and Itching Other reaction(s): Hives, Hives/Urticaria Meperidine Hives Other reaction(s): Hives/Urticaria Morphine Hives Patient tolerates hydromorphone Other reaction(s): Hives, Hives/Urticaria, Unknown Reaction Nalbuphine Hives Other reaction(s): Hives, Hives/Urticaria Penicillins Hives Tolerates cefazolin Other reaction(s): Hives, Hives/Urticaria Ciprofloxacin Hcl Hives Aspirin Other (See Comments) Pt states gives me nosebleeds nosebleeds nosebleeds Review of Systems Constitutional: Negative. Respiratory: Negative. Cardiovascular: Negative. Gastrointestinal: Positive for nausea and vomiting. Negative for abdominal pain. Genitourinary: Positive for flank pain (right). Negative for decreased urine volume, difficulty urinating, dysuria, hematuria and vaginal discharge. Skin: Negative. Patient Vitals for the past 24 hrs: BP Temp Temp src Pulse Resp SpO2 Height Weight 12/04/21 0332 (!) 89/55 -- -- -- -- -- -- -- 12/04/21 0330 (!) 89/55 -- -- 91 (!) 22 98 % -- -- 12/04/21 0315 (!) 89/57 -- -- 91 17 96 % -- -- 12/04/21 0300 (!) 93/59 -- -- 89 17 97 % -- -- 12/04/21 0245 101/63 -- -- 91 15 96 % -- -- 12/04/21 0236 -- -- -- -- -- (!) 87 % -- -- 12/04/21 0233 102/65 -- -- 97 -- -- -- -- 12/04/21 0230 (!) 87/61 -- -- 97 -- -- -- -- 12/04/21 0227 104/63 -- -- 89 -- -- -- -- 12/04/21 0215 (!) 85/58 -- -- 97 16 96 % -- -- 12/04/21 0208 (!) 80/55 -- Oral 90 16 94 % -- -- 12/04/21 0200 (!) 82/58 -- -- 91 18 91 % -- -- 12/04/21 0145 (!) 87/59 -- -- 94 (!) 25 94 % -- -- 12/04/21 0130 105/64 -- -- 95 (!) 22 91 % -- -- 12/04/21 0115 94/61 -- -- 94 (!) 21 95 % -- -- 12/04/21 0100 95/66 -- -- 95 (!) 21 94 % -- -- 12/04/21 0051 (!) 89/65 -- -- (!) 102 18 95 % -- -- 12/04/21 0031 (!) 87/60 -- -- 97 17 92 % -- -- 12/04/21 0016 (!) 82/55 -- -- 98 (!) 21 91 % -- -- 12/04/21 0000 (!) 86/60 -- -- (!) 105 (!) 22 93 % -- -- 12/03/21 2334 98/62 -- -- (!) 105 (!) 22 95 % -- -- 12/03/21 2315 (!) 83/63 -- -- (!) 106 17 94 % -- -- 12/03/21 2202 128/82 98.3 F (36.8 C) Oral (!) 130 16 96 % 5' 7 99.8 kg (220 lb) Physical Exam Constitutional: Appearance: She is obese. Cardiovascular: Rate and Rhythm: Regular rhythm. Tachycardia present. Pulses: Normal pulses. Heart sounds: Normal heart sounds. Pulmonary: Effort: Pulmonary effort is normal. Breath sounds: Normal breath sounds. Abdominal: General: Bowel sounds are normal. Palpations: Abdomen is soft. Tenderness: There is no abdominal tenderness. There is right CVA tenderness. Musculoskeletal: General: Normal range of motion. Skin: General: Skin is warm and dry. Capillary Refill: Capillary refill takes less than 2 seconds. Neurological: General: No focal deficit present. Mental Status: She is alert and oriented to person, place, and time. Laboratory & Radiographic Imaging (if done): Results for orders placed or performed during the hospital encounter of 12/03/21 BMP Result Value Ref Range Sodium 140 135 - 145 mmol/L Potassium 3.6 3.5 - 5.1 mmol/L Chloride 107 98 - 108 mmol/L Bicarbonate 27 21 - 32 mmol/L Anion Gap 10 10 - 20 mmol/L Glucose 163 (H) 65 - 99 mg/dL BUN 17 8 - 25 mg/dL Creatinine 0.81 0.40 - 1.10 mg/dL eGFR 91 >=60 mL/min/1.73 m2 BUN/Creatinine Ratio 21.0 (H) 10.0 - 20.0 Calcium 9.2 8.4 - 10.2 mg/dL Urinalysis Result Value Ref Range Color, Urine Yellow Colorless, Yellow Clarity, Urine Cloudy (A) Clear Specific [place] 1.045 (H) 1.005 - 1.025 pH, Urine 5.5 5.0 - 7.0 Protein, Urine Negative Negative mg/dL Glucose, Urine >=500 (A) Negative mg/dL Ketones, Urine Trace (A) Negative mg/dL Bilirubin, Urine Negative Negative Urobilinogen, Urine <2.0 <2.0 mg/dL Blood, Urine Large (A) Negative Nitrite, Urine Negative Negative Leukocyte Esterase, Urine Moderate (A) Negative WBCs, Urine 8 (H) 0 - 5 /hpf RBCs, Urine >180 (H) 0 - 3 /hpf Bacteria, Urine None Seen None Seen /hpf Squamous Epithelial 18 (H) 0 - 4 /hpf Mucus, Urine Many (A) None Seen, Rare /lpf Urine Drug Screen Result Value Ref Range Amphetamine Screen, Urine None Detected None Detected Barbiturate Screen, Urine None Detected None Detected Benzodiazepine Screen, Urine None Detected None Detected Cannabinoid Screen, Urine None Detected None Detected Cocaine, Screen Urine None Detected None Detected Methadone Screen, Urine None Detected None Detected Opiate Screen, Urine None Detected None Detected Oxycodone Screen, Urine None Detected None Detected Buprenorphine, Ur None Detected None Detected Fentanyl, Ur None Detected None Detected Lactic Acid, Plasma Result Value Ref Range Lactic Acid 0.8 0.6 - 2.0 mmol/L Troponin Result Value Ref Range Troponin I <3 <=59 ng/L Troponin I Interpretation Normal CBC Auto Differential Result Value Ref Range WBC 6.28 4.50 - 11.00 K/mcL RBC 4.46 4.00 - 5.20 M/mcL Hemoglobin 13.8 12.0 - 16.0 g/dL Hematocrit 39.3 36.0 - 46.0 % MCV 88.1 80.0 - 100.0 fL MCH 30.9 26.0 - 34.0 pg MCHC 35.1 31.0 - 37.0 g/dL Platelets 237 150 - 400 K/mcL RDW - CV 12.1 11.6 - 14.8 % MPV 9.1 (L) 9.4 - 12.4 fL Neutrophils 49.6 % Lymphocytes 32.0 % Monocytes 8.3 % Eosinophils 8.9 % Basophils 1.0 % IG Percent 0.20 % Neutrophils Abs 3.12 1.70 - 7.00 K/mcL Lymphocytes Abs 2.01 0.90 - 4.00 K/mcL Monocytes Abs 0.52 0.30 - 0.90 K/mcL Eosinophils Abs 0.56 (H) 0.00 - 0.50 K/mcL Basophils Abs 0.06 0.00 - 0.30 K/mcL IG Absolute 0.01 0.00 - 0.30 K/mcL Nucleated RBC 0.0 % Nucleated RBC Abs 0.00 0.00 - 0.00 K/mcL CT Angiogram Chest Abdomen Pelvis Preliminary Result AORTA: 1. Intact thoracic and abdominal aorta with normal caliber, patent major branches and no atherosclerotic disease. 2. Normal appearance of bilateral common, internal, external iliac arteries and imaged femoral arteries. CHEST: 1. Bilateral air trapping. No airway occlusion or bronchial wall thickening. 2. Intermediate density circumscribed fluid collection is increased in volume when compared to prior CT from 01/26/2021 but likely represents a developing pericardiac cyst. No large mediastinal hematoma. This finding could be re- evaluated with follow-up nonemergent noncontrast chest CT to reassess the density of this fluid. 3. No thoracic adenopathy. 4. No cardiac chamber or pulmonary arterial filling defects. ABDOMEN/PELVIS: 1. No acute abdominal or pelvic inflammatory process. 2. Normal appendix and no adenopathy. VKR/hff Workstation ID: [id number] CT Kidney Stone Final Result 3 mm right superior renal stone without hydroureteronephrosis. No discrete large radiopaque obstructing ureteral stone. Multiple calcified pelvic phleboliths. Colonic diverticula without diverticulitis. Workstation ID: [id number] Procedures MDM Number of Diagnoses or Management Options Hypotension, unspecified hypotension type Right flank pain Diagnosis management comments: Upon examination, patient sitting up in bed no distress noted. Alertand oriented answering questions appropriately. Patient is tachycardic at a rate of 130, blood pressure 128/82. Previous kidney stones, reports symptoms at this time similar. Listed allergy to morphine and ketorolac, however, patient states that she has received Dilaudid without issues. However, Dilaudid was held due to systolic blood pressure of 89. Patient denies low blood pressuresin the 80s. She does not take any medication for HTN. Discussed case with Dr. Feng who did independently examine and evaluate patient. CT kidney stone shows: 3 mm right superior renal stone without hydroureteronephrosis. No discrete large radiopaque obstructing ureteral stone. Multiple calcified pelvic phleboliths. Colonic diverticula without diverticulitis. UA does not reflect infection, does show blood. Labs unremarkable with exception of glucose slightly elevated 163. Patient is known IDDM. EKG reviewed by Dr. Feng, shows no acute ischemia. CTA shows: AORTA: 1. Intact thoracic and abdominal aorta with normal caliber, patent major branches and no atherosclerotic disease. 2. Normal appearance of bilateral common, internal, external iliac arteries and imaged femoral arteries. CHEST: 1. Bilateral air trapping. No airway occlusion or bronchial wall thickening. 2. Intermediate density circumscribed fluid collection is increased in volume when compared to prior CT from 01/26/2021 but likely represents a developing pericardiac cyst. No large mediastinal hematoma. This finding could be re- evaluated with follow-up nonemergent noncontrast chest CT to reassess the density of this fluid. 3. No thoracic adenopathy. 4. No cardiac chamber or pulmonary arterial filling defects. ABDOMEN/PELVIS: 1. No acute abdominal or pelvic inflammatory process. 2. Normal appendix and no adenopathy. Despite 2 L normal saline, patient's blood pressure remains in the high 80s, currently 89/57. Heartrate 91. Orthostats negative, patient asymptomatic with position changes per nursing. Discussed all results with patient as well as recommendation for admission given her degree of continued hypotension, she verbalizes understanding and is in agreement. I spoke with Dr. Vo hospitalist, patient will be admitted observation status. . . Clinical Impression: 1. Hypotension, unspecified hypotension type 2. Right flank pain ED Disposition ED Disposition Hospitalize Condition -- Comment -- Follow-up Information Follow-up information has not been specified. Contact information for after-discharge care Follow-up information has not been specified. Shruthi Christine CNP 12/04/21 [address] [place] Work Phone: [phone] 761-846306-07-2022 Emergency department Triage note* Aleena Light RN - 12/03/2021 10:02 PM EDT PT C/O RIGHT SIDED FLANK PAIN THAT STARTED 2 HRS AGO, STATES SHE HAS VOMITED FOUR TIMES IN THE LAST TWO HOURS [id number] History of Present illness Narrative* MONIKA Díaz - 06/25/2021 8:30 AM EST URGENT CARE eNCOUnter CHIEF COMPLAINT Cough (x 5days daughter covid positive (no vac)), Nasal Congestion, Sinus Congestion, Loss Of Smell, and Sore Throat [facility] Gisel Carlton is a 46 y.o. female who presents today for Complaining of cough, nasal congestion, sinus congestion. Patient's daughter is positive. Patient reports loss of smell. She also reports a sore throat. REVIEW OF SYSTEMS Review of Systems As documented in HPI. A thorough 12 point review of systems was evaluated including Constitutional and general appearance, Head, Face, Ears, Eyes, Nose, Throat, Cardiovascular, Pulmonary, GI, , Skin, and Psychiatric andwas found to be negative without symptoms or signs consistent with acute pathology with the exception of that specifically documented in the HPI section of this documentation. PAST MEDICAL HISTORY Past Medical History: Diagnosis Date Diabetes mellitus Type 2 GERD (gastroesophageal reflux disease) Hyperlipidemia SURGICAL HISTORY Past Surgical History: Procedure Laterality Date CHOLECYSTECTOMY HYSTERECTOMY CURRENT MEDICATIONS Current Outpatient Medications Medication Sig Dispense Refill Insulin Degludec 200 UNIT/ML Solution Pen-injector injection Inject 100 Units under the skin. INSULIN GLARGINE SC Inject 30 Units under the skin. insulin lispro 100 UNIT/ML vial Inject under the skin. omeprazole [address] capsule Take 20 mg by mouth daily. ondansetron (Zofran ODT) 4 MG Tab Dispersible tablet Take 1 tablet by mouth every 4 hours as neededfor Nausea. 8 tablet 0 Ozempic, 0.25 or 0.5 MG/DOSE, 2 MG/1.5ML Solution Pen-injector Inject 0.25 mg weekly for 4 weeks, then increase to 0.5 mg traZODone 100 MG tablet TAKE 1 TABLET BY MOUTH NIGHTLY NEEDED for sleep celecoxib 100 MG capsule celecoxib Celecoxib (Celebrex) 100 mg Capsule Active 100 MG PO Daily April 23, 2020 7:41pm 04-23-2020 [facility] ([id number]) (Patient not taking: Reportedon 06/25/2021) dicyclomine 20 MG tablet Take 1 tablet by mouth 3 times daily as needed for Abdominal Spasms. 8 tablet 0 doxycycline hyclate 100 MG capsule Take 1 capsule by mouth 2 times daily for 10 days. 20 capsule 0 ergocalciferol 1.25 MG (07860 UT) capsule 1,250 mcg. (Patient not taking: Reported on 06/25/2021) hydroCODone-acetaminophen 5-325 MG tablet Take 1 tablet by mouth every 6 hours as needed for Moderate Pain for up to 3 days. 6 tablet 0 metoprolol 25 MG tab regular release Take 50 mg by mouth 2 times daily. (Patient not taking: Reported on 06/25/2021) ondansetron 4 MG tablet 4 mg. (Patient not taking: Reported on 06/25/2021) polymyxin b-trimethoprim 71882-9.1 UNIT/ML-% Solution ophthalmic solution Place 1 drop in left eye every 4 hours. (Patient not taking: Reported on 06/25/2021) 10 mL 0 rosuvastatin 20 MG tablet Take 20 mg by mouth daily. (Patient not taking: Reported on 06/25/2021) Tamsulosin HCl 0.4 MG capsule Take 1 capsule by mouth daily. (Patient not taking: Reported on 06/25/2021) 7 capsule 0 tizanidine 4 MG capsule Take by mouth 2 times daily as needed. (Patient not taking: Reported on 06/25/2021) No current facility-administered medications for this visit. ALLERGIES Allergies Allergen Reactions Asa [Aspirin] nosebleeds Azithromycin Hives Ciprofloxacin Fentanyl Hives Ketorolac Hives Meperidine Hives and Itching Nalbuphine Hives Penicillins Hives Morphine Hives FAMILY HISTORY History reviewed. No pertinent family history. SOCIAL HISTORY Social History Socioeconomic History Marital status: Spouse name: Not on file Number of children: Not on file Years of education: Not on file Highest education level: Not on file Occupational History Not on file Tobacco Use Smoking status: Never Smoker Smokeless tobacco: Never Used Vaping Use Vaping Use: Never used Substance and Sexual Activity Alcohol use: Not Currently Drug use: Never Sexual activity: Not on file Other Topics Concern Service Not Asked Blood Transfusions Not Asked Caffeine Concern Not Asked Occupational Exposure Not Asked Hobby Hazards Not Asked Sleep Concern Not Asked Stress Concern Not Asked Weight Concern Not Asked Special Diet Not Asked Back Care Not Asked Exercise Not Asked Bike Helmet Not Asked Seat Belt Not Asked Domestic Violence No Social History Narrative Not on file Social Determinants of Health Financial Resource Strain: Not on file Food Insecurity: Not on file Transportation Needs: Not on file Physical Activity: Not on file Stress: Not on file Social Connections: Not on file Intimate Partner Violence: Not on file Housing Stability: Not on file PHYSICAL EXAM BP 108/66 (BP Location: Right arm, BP Position: Sitting) Pulse 112 Temp 98 F (36.7 C) (Temporal) Resp 16 Ht 1.702 m (5' 7 ) Wt 99.8 kg (220 lb) SpO2 95% BMI 34.46 kg/m Smoking Status Never Smoker Physical Exam General exam: Patient is well-developed and well-nourished in no distress. Patient does not appear acutely ill or toxic. Eye exam: Lids and conjunctivae are normal ENT exam: uvula midline. Maxillary sinus tenderness. Pulmonary exam: No respiratory distress. Respiratory rate is normal. No stridor. Breath sounds are equal bilaterally. There are no wheezes, rales, or rhonchi noted. Cardiac exam: The cardiac rate and rhythm are normal. No significant murmurs, rubs, or gallops. Peripheral pulses are normal. Skin and soft tissue: Skin is warm and dry, without significant abnormality. Good color. Musculoskeletal exam: There is no peripheral edema. Musculoskeletal exam of the lower extremities is normal without significant focal tenderness or spasm. Neurologic: Patient is alert and appropriate. Normal speech. Normal symmetric strength and tone in all extremities. Psychiatric: Normal adult with appropriate demeanor and interpersonal interaction. Is oriented to person, place, and time. Diagnosis, Assessment & Plan: Gisel was seen today for cough, nasal congestion, sinus congestion, loss of smell and sore throat. Diagnoses and all orders for this visit: Encounter for screening for COVID-19 - SARS-COV-2 RAPID; Future - SARS-COV-2 RAPID Acute maxillary sinusitis, recurrence not specified Other orders - doxycycline hyclate 100 MG capsule; Take 1 capsule by mouth 2 times daily for 10 days. -: Negative -If change in symptoms because of close contact advised to quarantine or be retested -Doxycycline prescribed for sinusitis. -Follow up with PCP. Advised to return or go to ER immediately if any new or worsening symptoms. -Benefits, risks, contraindications, & complications of recommended treatments were explained. The patient understands & agrees to proceed with plan. MONIKA Díaz 06/25/2021 documented in this [facility]12-28-2021 Instructions* Patient Instructions* MONIKA Díaz - 06/25/2021 8:30 AM EST Images from the original note were not included. Sinusitis: Care Instructions Your Care Instructions Sinusitis is an infection of the lining of the sinus cavities in your head. Sinusitis often followsa cold. It causes pain and pressure in your head and face. In most cases, sinusitis gets better on its own in 1 to 2 weeks. But some mild symptoms may last for several weeks. Sometimes antibiotics are needed. Follow-up care is a baez part of your treatment and safety. Be sure to make and go to all appointments, and call your doctor if you are having problems. It's also a good idea to know your test resultsand keep a list of the medicines you take. How can you care for yourself at home? Take an wrck-rre-zmyxcpk pain medicine, such as acetaminophen (Tylenol), ibuprofen (Advil, Motrin),or naproxen (Aleve). Read and follow all instructions on the label. If the doctor prescribed antibiotics, take them as directed. Do not stop taking them just because you feel better. You need to take the full course of antibiotics. Be careful when taking qlkl-ysh-gvizzfg cold or flu medicines and Tylenol at the same time. Many ofthese medicines have acetaminophen, which is Tylenol. Read the labels to make sure that you are nottaking more than the recommended dose. Too much acetaminophen (Tylenol) can be harmful. Breathe warm, moist air from a steamy shower, a hot bath, or a sink filled with hot water. Avoid cold, dry air. Using a humidifier in your home may help. Follow the directions for cleaning the machine. Use saline (saltwater) nasal washes. This can help keep your nasal passages open and wash out mucusand bacteria. You can buy saline nose drops at a grocery store or drugstore. Or you can make your own at home by adding 1 teaspoon of salt and 1 teaspoon of baking soda to 2 cups of distilled water. If you make your own, fill a bulb syringe with the solution, insert the tip into your nostril, and squeeze gently. Blow your nose. Put a hot, wet towel or a warm gel pack on your face 3 or 4 times a day for 5 to 10 minutes each time. Try a decongestant nasal spray like oxymetazoline (Afrin). Do not use it for more than 3 days in a row. Using it for more than 3 days can make your congestion worse. When should you call for help? Call your doctor now or seek immediate medical care if: You have new or worse swelling or redness in your face or around your eyes. You have a new or higher fever. Watch closely for changes in your health, and be sure to contact your doctor if: You have new or worse facial pain. The mucus from your nose becomes thicker (like pus) or has new blood in it. You are not getting better as expected. Where can you learn more? Go to http://www.[employer].osu.edu/patiented. Enter I933 in the search box to learn more about 'Sinusitis: Care Instructions.' Interested in seeing a video go to [email or web address]/videolibrary to see all video content. Current as of: March 06, 2021 Content Version: 13.1 [employer]. Care instructions adapted under license by your healthcare professional. If you have questions about a medical condition or this instruction, always ask your healthcare professional. [employer] disclaims any warranty or liability for your use of this information. documented in this [facility]08-11-2021 History of Present illness Narrative* Tim Roper MD - 02/06/2021 8:25 AM EDT Associated Order(s): Cystoscopy, Remove Calculus, Simple Post-Procedure Diagnose(s): Kidney stone Cystoscopy, Remove Calculus, Simple Date/Time: 02/06/2021 8:25 AM Performed by: Tim Roper MD Authorized by: Tim Roper MD Verbal consent: obtained Written consent: obtained Consent given by: patient Relevant documents: Relevent documents present and verified. Medical history, medications, allergies and physical assessment reviewed/completed Test results: test results available and properly labeled Site: site marked by physician or proceduralist who is privileged and credentialed to perform procedure Relevant imaging studies available and labeled: Yes Patient identity confirmed: verified patient name and Time out: Immediately prior to procedure a time out was called to verify the correct patient, procedure, equipment, medical support specialist and site/side marked as required. Timeout performed at: 02/06/2021 8:25 AM Physician or proceduralist has discussed critical or nonroutine steps, procedure duration and anticipated blood loss: Yes All team members agree to proceed: Yes Preparation: Patient was prepped and draped in usual sterile fashion Local anesthesia used?: Yes Local anesthetic: Lidocaine/prilocaine emulsionPatient sedated: no Patient tolerance: Patient tolerated the procedure well with no immediate complications Procedure details: The patient was placed on the table in the frog-leg position. She was prepped inthe usual sterile fashion and lidocaine jelly was administered per urethra. The flexible cystoscopewas assembled. It was passed under direct vision into the bladder. The stent could be seen protruding from the right ureteral orifice. Grasping forceps were used to capture the stent and the stent was removed without difficulty. She tolerated this well and there were no complications. She will follow-up in 6 months with a KUB x-ray. documented in this [id number] History of Present illness Narrative* Holly Membreno RN - 02/02/2021 3:42 PM EDT AVS and discharge instructions reviewed with patient. Understanding verbalized, all questions answered. New prescriptions discussed. All home items in patient's possession. Peripheral IV removed per order. Wheelchair offered and will be provided. Patient will be escorted downstairs by staff. * Malathi Olivas MD - 02/02/2021 8:39 AM EDT Malathi Olivas MD [facility] Hospitalists PROGRESS NOTE Patient Name: Gisel Carlton PCP: Physician No Perpetual Assessment: Gisel Carlton is a 45 y.o. female who presented from home on 01/31/2021 with hematuria and R flank pain following ureteral stent placement and lithotripsy. Urology evaluated. [place] follow-up with urology on outpatient setting on Thursday for stent removal. Assessment and Plan Right Flank Pain Possible acute complicated UTI - Worsening R flank pain, CVA tenderness since urologic procedure on 01/30. UTI possible etiology given urine culture positive for GBS on 01/27, though this also could be reflective of contaminant. -afebrile and HD stable -UA with pyuria (65) and moderate leuk esterase; urine culture with less than thousand organisms. -Currently on Rocephin, will change just Omnicef. -Patient continues to have right flank pain, I suspect this is due to continue till the stent is out which is on Thursday. Overall pain is tolerable, discussed with patient will try p.o. medicationsin anticipation of discharging home with outpatient follow-up with urology. Hematuria - s/p cysto, lithotripsy and R ureteral stent placement for stone on 01/[address] Roper - CT kidney stone 02/01: Right nephroureteral stent appears in appropriate position. No ureteral stones or hydronephrosis. - Hgb 13.3, which is baseline - Urology evaluated. Nephrolithiasis - CT 01/26: Right 4 mm proximal ureteral calculus with mild fullness of the renal collecting system - s/p cysto, lithotripsy and R ureteral stent placement for stone in kidney (not ureter) on 01/[address] Roper - resume flomax Uncontrolled DM2 with Hyperglycemia - Blood sugars continues to be on the higher side. - A1c 12.5% and seen by endocrine at [facility]. -Per DC summary, Lantus 22 units nightly, lispro 12 units 3 times daily AC. Metformin was discontinued. 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 CC / Reason for follow up: Flank pain, dysuria SUBJECTIVE: Seen and examined the patient. Continues to have some pain but overall looks comfortable. Discussed about trying p.o. medications. Tolerating p.o. intake. Afebrile. ROS: < >> The following system(s) were reviewed. Pertinent positive and negative findings are noted in the HPI. [x] Const [] Eyes [] ENT [x] Resp [x] CV [x] GI [] [] Neuro [] Musc [] Skin [] Psych [x] Endo [] Allergy [] Heme/Lymph PHYSICAL EXAMINATION: << >>>>> Temp: [97.9 F (36.6 C)-98.1 F (36.7 C)] 97.9 F (36.6 C) Heart Rate: [83-102] 83 Resp: [14-16] 16 BP: (107-132)/(74-80) 132/80 GENERAL: Female in NAD EYES: Conjunctiva and sclera clear. ENT: Hearing intact. CV: Reg, no murmur. No JVD. No edema. RESP: CTAB with no wheezing or rhonchi GI: Non-distended, +BS, soft, non-tender. SKIN: Warm and dry. No rashes. Flank tenderness NEURO: Alert, Ox3. Grossly normal motor and sensory exam. No focal deficits. PSYCH: Cooperative. I/O s last 3 shifts: I/O last 3 completed shifts: In: 2865.1 [I.V.:1765.1; IV Piggyback:1100] Out: - Reviewed 02/02/21 8:39 AM: [x] Laboratory [x] Transcriptions [x] Radiology [x] Microbiology [] Cardiology [] Outside Records [x] Medications [] Family Time Spent/CCM Time: 35 mins * Marce Tillman CNP - 02/01/2021 9:14 AM EDT Marce Tillman CNP [facility] Hospitalists PROGRESS NOTE Patient Name: Gisel Carlton PCP: Physician No Perpetual Assessment: Gisel Carlton is a 45 y.o. female who presented from home on 01/31/2021 with hematuria and R flank pain following ureteral stent placement and lithotripsy. Assessment and Plan Right Flank Pain Possible acute complicated UTI - Worsening R flank pain, CVA tenderness since urologic procedure on 01/30. UTI possible etiology given urine culture positive for GBS on 01/27, though this also could be reflective of contaminant. -afebrile and HD stable -UA with pyuria (65) and moderate leuk esterase; urine culture in progress -Continue empiric Rocephin Hematuria - s/p cysto, lithotripsy and R ureteral stent placement for stone on 01/[address] Roper - CT kidney stone 02/01: Right nephroureteral stent appears in appropriate position. No ureteral stones or hydronephrosis. - Hgb 13.3, which is baseline - Urology consulted, Dr. Roper Nephrolithiasis - CT 01/26: Right 4 mm proximal ureteral calculus with mild fullness of the renal collecting system - s/p cysto, lithotripsy and R ureteral stent placement for stone in kidney (not ureter) on 01/[address] Roper - resume flomax Uncontrolled DM2 with Hyperglycemia - BG 346 - A1c 12.5% and seen by endocrine at [facility]. -Per DC summary, Lantus 22 units nightly, lispro 12 units 3 times daily AC. Metformin was discontinued. 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 Also endorses gross hematuria ROS: < >> The following system(s) were reviewed. Pertinent positive and negative findings are noted in the HPI. [x] Const [] Eyes [] ENT [x] Resp [x] CV [x] GI [] [] Neuro [] Musc [] Skin [] Psych [] Endo [] Allergy [] Heme/Lymph PHYSICAL EXAMINATION: << >>>>> Temp: [98.1 F (36.7 C)-98.8 F (37.1 C)] 98.1 F (36.7 C) Heart Rate: [83-110] 83 Resp: [16-17] 16 BP: (115-162)/(71-113) 127/82 GENERAL: NAD EYES: Conjunctiva and sclera clear. ENT: Hearing intact. CV: Reg, no murmur. No JVD. No edema. RESP: Clear, no rales, rhonchi, wheezes. No increase in respiratory effort. GI: Non-distended, +BS, soft, non-tender. SKIN: Warm and dry. No rashes. Flank tenderness NEURO: Alert, Ox3. Grossly normal motor and sensory exam. No focal deficits. PSYCH: Cooperative. I/O s last 3 shifts: I/O last 3 completed shifts: In: 1050 [IV Piggyback:1050] Out: - Reviewed 02/01/21 9:14 AM: [x] Laboratory [x] Transcriptions [x] Radiology [] Microbiology [] Cardiology [] Outside Records [x] Medications [] Family Time Spent/CCM Time: documented in this [id number] Hospital course Narrative* Malathi Olivas MD - 02/02/2021 2:44 PM EDT Malathi Olivas MD [facility] Hospitalists DISCHARGE SUMMARY Gisel Carlton Admit Date: 01/31/2021 Discharge Date: 02/02/21 Primary Care Physician: Physician Luz Clinical Summary Gisel Carlton is a 45 y.o. female who presented from home on 01/31/2021 with hematuria and R flank pain following ureteral stent placement and lithotripsy. Urology evaluated. Plan to follow-up with urology on outpatient setting on Thursday for stent removal. After discussion with patient, stopped IVpain medications and started on p.o. pain medication. Also advised patient to take ibuprofen along with Percocet. Patient discharged with instruction to follow-up with urology on Thursday to remove stent. On the day of discharge patient is hemodynamically stable and afebrile. Discharged on Omnicef, Percocet. Discharge Diagnosis and Associated Hospital Course Right Flank Pain Possible acute complicated UTI - Worsening R flank pain, CVA tenderness since urologic procedure on 01/30. UTI possible etiology given urine culture positive for GBS on 01/27, though this also could be reflective of contaminant. -afebrile and HD stable -UA with pyuria (65) and moderate leuk esterase; urine culture with less than thousand organisms. -Currently on Rocephin, will change just Omnicef. -Patient continues to have right flank pain, I suspect this is due to continue till the stent is out which is on Thursday. Overall pain is tolerable, tolerating p.o. intake and vitals look stable. -We will discharge on Percocet, Omnicef and can try ibuprofen as needed. Hematuria - s/p cysto, lithotripsy and R ureteral stent placement for stone on 01/[address] Roper - CT kidney stone 02/01: Right nephroureteral stent appears in appropriate position. No ureteral stones or hydronephrosis. - Hgb 13.3, which is baseline - Urology evaluated. Nephrolithiasis - CT 01/26: Right 4 mm proximal ureteral calculus with mild fullness of the renal collecting system - s/p cysto, lithotripsy and R ureteral stent placement for stone in kidney (not ureter) on 01/[address] Roper - resume flomax Uncontrolled DM2 with Hyperglycemia - Blood sugars continues to be on the higher side. - A1c 12.5% and seen by endocrine at [facility]. - resume home insulin regimen 3 HLD - resume statin Code Status: Full code Comments/Problems to be Addressed After Discharge Follow-up with urology on Thursday. Procedures: Code Status: Full resuscitation Allergies: Demerol [meperidine], Morphine, Nubain [nalbuphine], Penicillins, Toradol [ketorolac], Aspirin, Fentanyl, and Zofran [ondansetron hcl] Disposition: Home Condition at Discharge: good Discharge Medication Recommendations Current Discharge Medication List START taking these medications Details cefdinir (OMNICEF) 300 MG capsule Take 1 (one) capsule (300 mg total) by mouth every 12 (twelve) hours for 7 days . Qty: 14 capsule, Refills: 0 oxyCODONE-acetaminophen (PERCOCET) 5-325 mg per tablet Take 1 (one) tablet by mouth every 6 (six) hours as needed for pain . Qty: 20 tablet, Refills: 0 Associated Diagnoses: Flank pain phenazopyridine (PYRIDIUM) 200 MG tablet Take 1 (one) tablet (200 mg total) by mouth 3 (three) times a day after meals for 7 days . Qty: 21 tablet, Refills: 0 CONTINUE these medications which have NOT CHANGED Details celecoxib (CELEBREX) 100 MG capsule Take 100 mg by mouth 2 (two) times a day . omeprazole (PRILOSEC) 20 MG capsule Take 20 mg by mouth daily . ondansetron (ZOFRAN) 4 MG tablet Take 1 (one) tablet (4 mg total) by mouth every 6 (six) hours as needed . Qty: 15 tablet, Refills: 0 rosuvastatin (CRESTOR) 20 MG tablet Take 20 mg by mouth daily . insulin glargine (Lantus Solostar U-100 Insulin) 100 unit/mL (3 mL) InPn Inject 22 (twenty two) Units under the skin nightly . Qty: 15 mL, Refills: 0 insulin lispro (HumaLOG KwikPen Insulin) 100 unit/mL InPn Inject 12 (twelve) Units under the skin 3(three) times a day before meals . Qty: 15 mL, Refills: 0 tamsulosin (Flomax) 0.4 mg capsule Take 1 (one) capsule (0.4 mg total) by mouth daily . Qty: 30 capsule, Refills: 0 STOP taking these medications oxyCODONE (ROXICODONE) 5 MG immediate release tablet Comments: Reason for Stopping: Gisel Carlton was seen and examined on the day of discharge. See documentation on discharge day for pertinent history and exam findings. Time spent on discharge: > 30 minutes I reviewed the discharge plans with patient at the bedside. This included details regarding medications, labs, testing and follow-up. documented in this [id number] Consult note* Amanda Fritz CNP - 02/01/2021 10:53 AM EDT Associated Order(s): IP CONSULT TO UROLOGY CONSULT NOTE Patient Name: Gisel Carlton Admit Date: [id number] MR #: [id number] : 1975 Assessment and Plan: Right flank pain Hematuria - S/p cysto, lithotripsy and R ureteral stent placement for stone on 01/[address] Roper - CT 02/01 Right nephroureteral stent appears in appropriate position. No ureteral stones or hydronephrosis - UA with pyuria (65) and moderate leuk esterase; urine culture in progress - Ucx 01/27 positive for GBS - wbc: wnl; CR 0.49 - Empiric rocephin started per primary - Pain medication PRN - Will follow cultures - Will discuss with Dr. Haines and Dr. Roper Thank you very much for allowing me to participate in your patient care and if you have any furtherquestions please don't hesitate to call. Amanda Fritz, [facility] (o) [phone] Chief Complaint/Reason for Visit: Chief Complaint Patient presents with Post-op Problem Flank Pain HPI: This a 45-year-old female with type 2 diabetes and GERD she just was discharged at [address] Roper placed a right ureteral stent for a kidney stone that the patient says was 4 mm. Patient has had pain consistently through this whole process with her stone but is gotten significantly worse this evening it is 10 out of 10 sharp stabbing pain in the right flank and also in the right lower quadrant. She woke up a few hours ago with a fever around 101F and took some Tylenol. She is vomited once she said she is urinating straight blood . She feels that there is something wrong she does not feel right and so she comes in here for further evaluation. The patient is not on blood thinners she has no other complaints at this time. Patient seen and examined. She is resting well in bed and reports 9/10 pain when IV pain medicationwears off. She states she had a fever at home of 102 and an episode of vomiting. She states her fever and vomiting has resolved upon admission but continues to have right flank pain and nausea. She reports GH but denies any clots passing in her urine. She has increased urinary frequency and worsening flank pain with urination. She states sometimes it jordan when she urinates. She has a history of kidney stones requiring stents but states she does not remember this type of stent pain before. She would like to know if there is anything stronger to control her pain. History: Past Medical History: Diagnosis Date Diabetes mellitus (HCC) Diabetes mellitus, type 2 (HCC) GERD (gastroesophageal reflux disease) History of kidney stones Hx: UTI (urinary tract infection) Past Surgical History: Procedure Laterality Date ADENOIDS CARPAL TUNNEL RELEASE Bilateral CHOLECYSTECTOMY CYSTO RETRO STONE MANIPULATION STENT INSERTION Right 01/30/2021 Procedure: CYSTOSCOPY WITH STENT URETEROSCOPY WITH HOLMIUM LASER; Surgeon: Tim Roper MD; Location: Main OR; Service: Urology HERNIA REPAIR HYSTERECTOMY LEG SURGERY TONSILLECTOMY History reviewed. No pertinent family history. Social History Socioeconomic History Marital status: Single Spouse name: Not on file Number of children: Not on file Years of education: Not on file Highest education level: Not on file Occupational History Not on file Tobacco Use Smoking status: Never Smoker Smokeless tobacco: Never Used Vaping Use Vaping Use: Never used Substance and Sexual Activity Alcohol use: Never Drug use: Never Sexual activity: Not on file Other Topics Concern Not on file Social History Narrative Not on file Social Determinants of Health Financial Resource Strain: Difficulty of Paying Living Expenses: Food Insecurity: Worried About Running Out of Food in the Last Year: Ran Out of Food in the Last Year: Transportation Needs: Lack of Transportation (Medical): Lack of Transportation (Non-Medical): Physical Activity: Days of Exercise per Week: Minutes of Exercise per Session: Stress: Feeling of Stress : Social Connections: Frequency of Communication with Friends and Family: Frequency of Social Gatherings with Friends and Family: Attends [employer] Services: Active Member of Clubs or Organizations: Attends Club or Organization Meetings: Marital Status: Allergy Information: I have reviewed the patient's allergies. Demerol [meperidine], Morphine, Nubain [nalbuphine], Penicillins, Toradol [ketorolac], Aspirin, Fentanyl, and Zofran [ondansetron hcl] Home Medications: Outpatient Medications as of 01/31/2021 Medication Sig celecoxib (CELEBREX) 100 MG capsule Take 100 mg by mouth 2 (two) times a day . omeprazole (PRILOSEC) 20 MG capsule Take 20 mg by mouth daily . ondansetron (ZOFRAN) 4 MG tablet Take 1 (one) tablet (4 mg total) by mouth every 6 (six) hours as needed . oxyCODONE (ROXICODONE) 5 MG immediate release tablet Take 1 (one) tablet (5 mg total) by mouth every 8 (eight) hours as needed (Days supply per fill: 4) . rosuvastatin (CRESTOR) 20 MG tablet Take 20 mg by mouth daily . insulin glargine (Lantus Solostar U-100 Insulin) 100 unit/mL (3 mL) InPn Inject 22 (twenty two) Units under the skin nightly . insulin lispro (HumaLOG KwikPen Insulin) 100 unit/mL InPn Inject 12 (twelve) Units under the skin 3(three) times a day before meals . tamsulosin (Flomax) 0.4 mg capsule Take 1 (one) capsule (0.4 mg total) by mouth daily . Review of Systems: The following system(s) were reviewed and are negative unless otherwise noted in the HPI: Constitutional CV Resp All other systems reviewed and negative other than HPI Physical Examination: Vital Signs: BP 127/82 (Patient Position: Lying) Pulse 83 Temp 98.1 F (36.7 C) (Oral) Resp 16 Ht 5' 7 Wt 99.3 kg (219 lb) SpO2 94% BMI 34.30 kg/m Constitutional: Well developed and in no acute distress. HENT: Normocephalic and atraumatic. patent. Neck is supple. Cardiovascular: Intact distal pulses, no peripheral edema. Pulmonary/Chest: Effort normal. No respiratory distress. Abdominal: Soft. Lower right abdominal pain Back: Right flank pain Musculoskeletal: Normal range of motion. Neurological: Alert and oriented to person, place, and time. Skin: Skin is warm and dry. Psychiatric: Normal mood and affect. Genitourinary: Voiding spontaneously tea colored urine, no clots Laboratory and Additional Data Reviewed: I have personally reviewed and agree the following data and imaging and agree with radiologic interpretation. Results from last 7 days Lab Units 02/01/2152201/31/21223501/30/2131601/29/21 0343 SODIUM mmol/L 139 136 137 136 POTASSIUM mmol/L 3.7 3.8 4.0 4.0 CHLORIDE mmol/L 105 102 106 106 BUN mg/dL 13 15 12 15 CREATININE mg/dL 0.49 0.59 0.60 0.63 GLUCOSE mg/dL 263* 346* 282* 267* CALCIUM mg/dL 9.1 -- 8.3* 8.5 Results from last 7 days Lab Units 02/01/2152201/31/21223501/30/2131601/29/21 0343 WBC K/mcL 5.18 6.04 4.53 4.76 HGB g/dL 12.0 13.3 12.5 12.5 HCT % 37.0 41.3 38.2 38.7 PLT K/mcL 211 213 192 191 MONOS% % -- 9.3 7.7 7.1 Urinalysis: Lab Results Component Value Date COLORUR Linda (A) 01/31/2021 CLARITYUR Cloudy (A) 01/31/2021 SPECGRAV 1.029 (H) 01/31/2021 PHUR 5.5 01/31/2021 PROTUR 30 (A) 01/31/2021 GLUCUR >=500 (A) 01/31/2021 BILIUR Negative 01/31/2021 BLOODUR Large (A) 01/31/2021 NITRITEUR Negative 01/31/2021 LEUKESTUR Moderate (A) 01/31/2021 WBCUR 65 (H) 01/31/2021 RBCUR >180 (H) 01/31/2021 BACTUR Few (A) 01/31/2021 Urine Culture: Lab Results Component Value Date CULTUREURN (A) 01/27/2021 >100,000 CFU/mL Beta Hemolytic Streptococcus Group B (S.agalactiae) Imaging: CT Kidney Stone Result Date: 02/01/2021 EXAMINATION: CT KIDNEY STONE HISTORY: ORDERING SYSTEM PROVIDED HISTORY: worsening right flank pain and fever, TECHNOLOGIST PROVIDED HISTORY: Illness/Other Reason for exam: worsening right flank pain and fever Encounter Type: Initial Additional signs and symptoms: stent yesterday pain since thursday ORDERING SYSTEM PROVIDED DIAGNOSIS CODES: COMPARISON: 01/26/2021 TECHNIQUE: Axial CT images of the abdomen and pelvis were obtained without intravenous contrast. Multiplanar 2-D reconstructed images were obtained and reviewed. Dose reduction techniques were achieved by using: automated exposure control and/or adjustment of mA and /or kV according to patient size and/or use of iterative reconstruction technique. FINDINGS: Please note that the sensitivity for detection of focal lesions or vascular disease is markedly reduced without intravenous contrast. LOWER CHEST: The imaged lung bases are clear. LIVER: Unremarkable. GALLBLADDER: Prior cholecystectomy. BILE DUCTS: No pathologic biliary ductal dilatation. SPLEEN: Unremarkable. PANCREAS: Unremarkable. ADRENAL GLANDS: Unremarkable. KIDNEYS/URETERS: Right nephroureteral stent intervally placed compared to prior CT and appears in appropriate position. No ureteral stones or hydronephrosis. Punctate nonobstructing 2 mm bilateral kidney stones. URINARY BLADDER: Bladder is decompressed and unremarkable. PELVIC STRUCTURES: Prior hysterectomy. No adnexal masses. No significant pelvic free fluid. GI: Limited evaluation due to fecal contents and lack of distension. No bowel obstruction. Normal appendix. Moderate colonic stool burden. PERITONEUM: No free air. No abscess. VASCULATURE: Unremarkable. LYMPH NODES: No pathologically enlarged lymph nodes by CT size criteria. SOFT TISSUE: Unremarkable. BONE: No acute osseous abnormality. No suspicious osseous lesions. Right nephroureteral stent appears in appropriate position. No ureteral stones or hydronephrosis. Afew punctate nonobstructing bilateral kidney stones. Prior cholecystectomy and hysterectomy. Normalappendix. Moderate colonic stool burden. Workstation ID: [id number] Associated attestation - Ras Haines MD - 02/01/2021 5:09 PM EDT Urology attestation: Patient seen and examined independently at the bedside. Pt with significant stent related pain and possible UTI in the setting of URS 2 days ago. Low suspicion for sepsis. I would recommend against early removal of the stent, and pt can follow up with next Thursday in [place] for stent removal in the office. Pt suitable for discharge home once pain control improves. If urine culture returns positive would recommend discharge with antibiotics until the stent is removed. Please call with questions. Ras Haines [facility] documented in this [id number] History and physical note* Rufina Eugene DO - 02/01/2021 5:07 AM EDT Rufina Eugene DO [facility] Hospital[facility] HISTORY AND PHYSICAL Patient Name:Gisel Carlton :1975 Admit Date: [id number] Physicians: Physician No (Family) Perpetual Assessment: Gisel Carlton is a 45 y.o. female who presented from home on 01/31/2021 with hematuria and R flank pain following ureteral stent placement and lithotripsy. ASSESSMENT AND PLAN Right Flank Pain Possible acute complicated UTI - Worsening R flank pain, CVA tenderness since urologic procedure on 01/30. UTI possible etiology given urine culture positive for GBS on 01/27, though this also could be reflective of contaminant. - afebrile here (but temp up to 102 at home), no leukocytosis -UA with pyuria (65) and moderate leuk esterase; urine culture in progress -Empiric Rocephin for now Hematuria - s/p cysto, lithotripsy and R ureteral stent placement for stone on 01/[address] Roper - CT kidney stone 02/01: Right nephroureteral stent appears in appropriate position. No ureteral stones or hydronephrosis. - Hgb 13.3, which is baseline - Urology consulted, Dr. Roper Nephrolithiasis - CT 01/26: Right 4 mm proximal ureteral calculus with mild fullness of the renal collecting system - s/p cysto, lithotripsy and R ureteral stent placement for stone in kidney (not ureter) on 01/[address] Roper - resume flomax Uncontrolled DM2 with Hyperglycemia - BG 346 - A1c 12.5% and seen by endocrine at [facility]. -Per DC summary, Lantus 22 units nightly, lispro 12 units 3 times daily AC. Metformin was discontinued. 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 female presenting to the hospital with worsening right flank pain and gross hematuria. Patient was recently admitted on 01/27 through 01/31 for right kidney stone. She underwent cystoscopy, lithotripsy and right ureteral stent placement on 01/[address] Roper. She was treated treated for possible UTI with several days of Ancef while hospitalized. Patient states that immediately following the urologic procedure she woke up with significant right flank pain and was urinating blood. She states that her pain was reasonably well controlled prior to her discharge. She states that she went home on 01/31 took a nap and her pain became unbearable. She states that she has beenurinating straight blood without any clots. She states she also had a fever at home. She reports lower abdominal pain, right CVA tenderness as well as dysuria. Patient also noted to have type 2 diabetes with uncontrolled blood sugar and an A1c of 12.5. She was evaluated by endocrinology and seen by critical care educator. She was started on Lantus 22 units nightly, lispro 12 units 3 times daily AC. Metformin was discontinued. ROS: > > > > > > > > > > The following system(s) were reviewed. Pertinent positive and negative findings are noted in the HPI. [x] Const [] Eyes [] ENT [x] Resp [x] CV [x] GI [x] [x] Neuro [x] Musc [] Skin [x] Psych [x] Endo [x] Allergy [x] Heme/Lymph PMH/PSH/SH/FH: Past Medical History: Diagnosis Date Diabetes mellitus (HCC) Diabetes mellitus, type 2 (HCC) GERD (gastroesophageal reflux disease) History of kidney stones Hx: UTI (urinary tract infection) Past Surgical History: Procedure Laterality Date ADENOIDS CARPAL TUNNEL RELEASE Bilateral CHOLECYSTECTOMY CYSTO RETRO STONE MANIPULATION STENT INSERTION Right 01/30/2021 Procedure: CYSTOSCOPY WITH STENT URETEROSCOPY WITH HOLMIUM LASER; Surgeon: Tim Roper MD; Location: Main OR; Service: Urology HERNIA REPAIR HYSTERECTOMY LEG SURGERY TONSILLECTOMY History reviewed. No pertinent family history. Social History Socioeconomic History Marital status: Single Spouse name: Not on file Number of children: Not on file Years of education: Not on file Highest education level: Not on file Occupational History Not on file Tobacco Use Smoking status: Never Smoker Smokeless tobacco: Never Used Vaping Use Vaping Use: Never used Substance and Sexual Activity Alcohol use: Never Drug use: Never Sexual activity: Not on file Other Topics Concern Not on file Social History Narrative Not on file Social Determinants of Health Financial Resource Strain: Difficulty of Paying Living Expenses: Food Insecurity: Worried About Running Out of Food in the Last Year: Ran Out of Food in the Last Year: Transportation Needs: Lack of Transportation (Medical): Lack of Transportation (Non-Medical): Physical Activity: Days of Exercise per Week: Minutes of Exercise per Session: Stress: Feeling of Stress : Social Connections: Frequency of Communication with Friends and Family: Frequency of Social Gatherings with Friends and Family: Attends [employer] Services: Active Member of Clubs or Organizations: Attends Club or Organization Meetings: Marital Status: Living Arrangements: Alone Support Systems: Spouse/significant other, Children, Parent Allergy Information: I have reviewed the patient's allergies. Demerol [meperidine], Morphine, Nubain [nalbuphine], Penicillins, Toradol [ketorolac], Aspirin, Fentanyl, and Zofran [ondansetron hcl] Home Medications: Outpatient Medications Marked as Taking for the 01/31/21 encounter (Hospital Encounter) Medication Sig celecoxib (CELEBREX) 100 MG capsule Take 100 mg by mouth 2 (two) times a day . omeprazole (PRILOSEC) 20 MG capsule Take 20 mg by mouth daily . ondansetron (ZOFRAN) 4 MG tablet Take 1 (one) tablet (4 mg total) by mouth every 6 (six) hours as needed . oxyCODONE (ROXICODONE) 5 MG immediate release tablet Take 1 (one) tablet (5 mg total) by mouth every 8 (eight) hours as needed (Days supply per fill: 4) . rosuvastatin (CRESTOR) 20 MG tablet Take 20 mg by mouth daily . PHYSICAL EXAMINATION > > > > > > > > Vital Signs: Temp: [98.3 F (36.8 C)-98.8 F (37.1 C)] 98.3 F (36.8 C) Heart Rate: [85-110] 85 Resp: [16-17] 16 BP: (115-162)/(71-113) 129/80 GENERAL: NAD EYES: Conjunctiva and sclera clear ENT: Hearing intact. CV: RRR, no murmur. No edema. RESP: Clear, no rales, rhonchi, wheezes or increase in respiratory effort, no use of accessory muscles. GI: Non-distended, significant right-sided CVA tenderness. Suprapubic right lower quadrant tenderness to palpation. SKIN: Warm and dry. No rashes. NEURO: Alert, Ox3. Moving all 4 extremities and ambulating without difficulty PSYCH: Mood and affect are appropriate. Cooperative. Laboratory and Additional Data Acquired or Reviewed: [x] Laboratory [x] Transcriptions [x] Radiology [x] Microbiology [x] Cardiology [x] Outside Records [x] Medications [] Family Time Spent: documented in this [id number] Miscellaneous Notes* Quick Note - Carmelita Martinez RN - 02/01/2021 4:37 AM EDT Plan for discharge reviewed: Yes How will patient get home: boyfriend Patient's preferred pharmacy reviewed, and Meds to Beds option discussed and refused * ED Attestation Note - Sena White MD - 02/01/2021 2:18 AM EDT I personally interviewed the patient. I personally examined the patient. I discussed the patient with FACTORY EXPERT/PA. I agree with the FACTORY EXPERT/PA treatment plan. I agree with the FACTORY EXPERT/PA plan of care. I agree with the FACTORY EXPERT/PA dispo as documented. 45-year old female presenting with intractable right flank pain, just discharged yesterday after ureteral stent placement for obstructing stone. She is seeing just gross hematuria. Of concern is thatshe had a temp of 1-2.5 at home though afebrile here with a normal white blood cell count. Urine appears mostly bloody, some bacteria though could be just contaminant. Is to be sent for culture is covered with Rocephin especially as she is a diabetic with a foreign body in place. Will admit for pain control and monitoring at this time. The patient has been informed that they may have pre-hypertension or hypertension based on a blood pressure reading in the Emergency Department. I recommend that the patient call the primary care provider listed on their discharge instructions or a physician of their choice as soon as possible to arrange follow-up in the next 4 weeks for further evaluation of possible pre-hypertension or hypertension. . documented in this [id number] Emergency department Note* Parker Benítez - 02/01/2021 2:22 AM EDT copc to write orders for svetlana [phone] * Fei Jones PA-C - 02/01/2021 12:07 AM EDT PCP - Physician No Chief Complaint Patient presents with Post-op Problem Flank Pain HPI This a 45-year-old female with type 2 diabetes and GERD she just was discharged at [address] Roper placed a right ureteral stent for a kidney stone that the patient says was 4 mm. Patient has had pain consistently through this whole process with her stone but is gotten significantly worse this evening it is 10 out of 10 sharp stabbing pain in the right flank and also in the right lower quadrant. She woke up a few hours ago with a fever around 101F and took some Tylenol. She is vomited once she said she is urinating straight blood . She feels that there is something wrong she does not feel right and so she comes in here for further evaluation. The patient is not on blood thinners she has no other complaints at this time. Review of Systems Constitutional: No recent unexplained weight loss Skin: No color changes Eyes: No discharge HENT: No drooling Respiratory: No stridor Genitourinary: Hematuria Endocrine: No polyphagia Neurologic: No new face asymmetry Psychiatric: No self injury Hematologic/Lymphatic: No new easy bruising Allergic/Immunologic: No urticaria Past Medical History Past Medical History: Diagnosis Date Diabetes mellitus (HCC) Diabetes mellitus, type 2 (HCC) GERD (gastroesophageal reflux disease) History of kidney stones Hx: UTI (urinary tract infection) Past Surgical History Past Surgical History: Procedure Laterality Date ADENOIDS CARPAL TUNNEL RELEASE Bilateral CHOLECYSTECTOMY CYSTO RETRO STONE MANIPULATION STENT INSERTION Right 01/30/2021 Procedure: CYSTOSCOPY WITH STENT URETEROSCOPY WITH HOLMIUM LASER; Surgeon: Tim Roper MD; Location: Main OR; Service: Urology HERNIA REPAIR HYSTERECTOMY LEG SURGERY TONSILLECTOMY Family History History reviewed. No pertinent family history. Social History Social History Socioeconomic History Marital status: Single Spouse name: Not on file Number of children: Not on file Years of education: Not on file Highest education level: Not on file Occupational History Not on file Tobacco Use Smoking status: Never Smoker Smokeless tobacco: Never Used Vaping Use Vaping Use: Never used Substance and Sexual Activity Alcohol use: Never Drug use: Never Sexual activity: Not on file Other Topics Concern Not on file Social History Narrative Not on file Social Determinants of Health Financial Resource Strain: Difficulty of Paying Living Expenses: Food Insecurity: Worried About Running Out of Food in the Last Year: Ran Out of Food in the Last Year: Transportation Needs: Lack of Transportation (Medical): Lack of Transportation (Non-Medical): Physical Activity: Days of Exercise per Week: Minutes of Exercise per Session: Stress: Feeling of Stress : Social Connections: Frequency of Communication with Friends and Family: Frequency of Social Gatherings with Friends and Family: Attends [employer] Services: Active Member of Clubs or Organizations: Attends Club or Organization Meetings: Marital Status: Allergies Allergies Allergen Reactions Demerol [Meperidine] Hives Morphine Hives Nubain [Nalbuphine] Hives Penicillins Hives Tolerates cefazolin Toradol [Ketorolac] Hives and Itching Aspirin Other (See Comments) Pt states gives me nosebleeds nosebleeds nosebleeds Fentanyl Rash Zofran [Ondansetron Hcl] Rash Medications Home Medication Instructions Prior to Surgery TAKE these medications Take last dose on Take the morning of surgery Comment(s) celecoxib 100 MG capsule Take 100 mg by mouth 2 (two) times a day . Commonly known as: CELEBREX insulin lispro 100 unit/mL Inpn Inject 12 (twelve) Units under the skin 3 (three) times a day before meals . Commonly known as: HumaLOG KwikPen Insulin Lantus Solostar U-100 Insulin 100 unit/mL (3 mL) Inpn Generic drug: insulin glargine Inject 22 (twenty two) Units under the skin nightly . omeprazole 20 MG capsule Take 20 mg by mouth daily . Commonly known as: PRILOSEC ondansetron 4 MG tablet Take 1 (one) tablet (4 mg total) by mouth every 6 (six) hours as needed . Commonly known as: ZOFRAN oxyCODONE 5 MG immediate release tablet Take 1 (one) tablet (5 mg total) by mouth every 8 (eight) hours as needed (Days supply per fill: 4). Commonly known as: ROXICODONE rosuvastatin 20 MG tablet Take 20 mg by mouth daily . Commonly known as: CRESTOR tamsulosin 0.4 mg capsule Take 1 (one) capsule (0.4 mg total) by mouth daily . Commonly known as: Flomax tiZANidine 4 MG capsule Take by mouth 2 (two) times a day as needed for muscle spasms . Commonly known as: ZANAFLEX Physical Exam Initial Vital Signs BP 139/83 (BP Location: Right arm, Patient Position: Lying) Pulse 93 Temp 98.7 F (37.1 C) (Oral) Resp 16 Ht 5' 7 Wt 99.3 kg (219 lb) SpO2 97% BMI 34.30 kg/m Vital Signs During ED Visit (as charted by nursing) Patient Vitals for the past 24 hrs: BP Temp Temp src Pulse Resp SpO2 Height Weight 02/01/21 0113 139/83 93 16 97 % 02/01/21 0049 16 02/01/21 0019 16 01/31/21 2155 (!) 162/113 98.7 F (37.1 C) Oral (!) 107 17 96 % 5' 7 99.3 kg (219 lb) Physical Exam Vitals and nursing note reviewed. Constitutional: General: She is not in acute distress. Appearance: She is well-developed. She is not ill-appearing or toxic-appearing. HENT: Head: Normocephalic and atraumatic. Right Ear: External ear normal. Left Ear: External ear normal. Nose: Nose normal. Eyes: General: No scleral icterus. Conjunctiva/sclera: Conjunctivae normal. Neck: Thyroid: No thyromegaly. Trachea: No tracheal deviation. Cardiovascular: Rate and Rhythm: Regular rhythm. Tachycardia present. Heart sounds: Normal heart sounds. No murmur heard. No friction rub. No gallop. Pulmonary: Effort: Pulmonary effort is normal. No respiratory distress. Breath sounds: Normal breath sounds. No stridor. No wheezing or rales. Abdominal: General: Bowel sounds are normal. There is no distension. Palpations: Abdomen is soft. There is no mass. Tenderness: There is abdominal tenderness (RLQ). There is right CVA tenderness. There is no left CVA tenderness, guarding or rebound. Musculoskeletal: General: No tenderness. Normal range of motion. Cervical back: Neck supple. Skin: General: Skin is warm and dry. Coloration: Skin is not pale. Findings: No erythema or rash. Neurological: Mental Status: She is alert and oriented to person, place, and time. Comments: Cranial nerves II-XII grossly intact. Sensory grossly intact. No tremors. Psychiatric: Behavior: Behavior normal. Thought Content: Thought content normal. Judgment: Judgment normal. Labs Reviewed URINALYSIS - Abnormal; Notable for the following components: Result Value Color, Urine [place] (*) Clarity, Urine Cloudy (*) Specific [place] 1.029 (*) Protein, Urine 30 (*) Glucose, Urine >=500 (*) Blood, Urine Large (*) Leukocyte Esterase, Urine Moderate (*) WBCs, Urine 65 (*) RBCs, Urine >180 (*) Bacteria, Urine Few (*) Squamous Epithelial 7 (*) All other components within normal limits Narrative: Microscopic examination is performed on all urinalysis samples and only positive findings are reported. The test for blood on the chemical analytic portion of urinalysis may also be positive due to hemoglobinuria and myoglobinuria and if red blood cells are present they are quantified by microscopic examination. CHEM 7 - Abnormal; Notable for the following components: Glucose 346 (*) BUN/Creatinine Ratio 25.4 (*) All other components within normal limits Narrative: The eGFR should be used for monitoring renal function only and not for medication dosing. URINE AEROBIC CULTURE COVID-19, MOLECULAR CBC AND DIFFERENTIAL Narrative: The following orders were created for panel order CBC and Differential. Procedure Abnormality Status --------- ------ CBC Auto Differential[[id number]] Final result Please view results for these tests on the individual orders. CBC WITH AUTO DIFFERENTIAL Radiographic Imaging (if any) During ED Visit CT Kidney Stone Final Result Right nephroureteral stent appears in appropriate position. No ureteral stones or hydronephrosis. A few punctate nonobstructing bilateral kidney stones. Prior cholecystectomy and hysterectomy. Normal appendix. Moderate colonic stool burden. Workstation ID: [id number] Medications Ordered/Given During ED Visit Medications sodium chloride (PF) (NS) flush 5 mL (has no administration in time range) And sodium chloride 0.9% (NS) (has no administration in time range) HYDROmorphone (DILAUDID) injection 1 mg (has no administration in time range) metoclopramide (REGLAN) injection 10 mg (has no administration in time range) diphenhydrAMINE (BENADRYL) injection 50 mg (has no administration in time range) cefTRIAXone (ROCEPHIN) IVPB 1 g (premix) (0 mg Intravenous Stopped 02/01/21 0112) HYDROmorphone (DILAUDID) injection 0.5 mg (0.5 mg Intravenous Given 02/01/21 0020) sodium chloride 0.9% (NS) bolus 1,000 mL (0 mL Intravenous Stopped 02/01/21 0135) IMPRESSION/ ED COURSE Procedures This patient was also seen and examined by Dr. White. Patient presented after she had a stent placed yesterday for a 4 mm right kidney stone. When she got home she started to have significant rightflank and right lower quadrant abdominal pain with a large amount hematuria. She also says she had a fever of 101F at home and then was nauseous and vomited once at home as well. She was tender in the right lower quadrant here with some right CVA tenderness we ordered a CT kidney stone study. The study was reassuring. Her urinalysis was questionable for UTI she has large blood with moderate leukocytes and 65 WBCs with greater than 180 RBCs few bacteria and 7 squamous epithelials. Urine culture is pending. Kidney function as well as a liter bolus of normal IV saline and multiple rounds of Dilaudid. Reglan and Benadryl was also ordered and then ultimately she was admitted to the [facility] observation unit for monitoring this evening. She was in stable condition at the time of this dictation. The patient was evaluated during the global COVID-19 pandemic. The patient was wearing a surgical mask in the room. I also was wearing a surgical mask while in the patient's room. The patient has been informed that they may have pre-hypertension or hypertension based on a blood pressure reading in the Emergency Department. I recommend that the patient call the primary care provider listed on their discharge instructions or a physician of their choice as soon as possible to arrange follow-up in the next 4 weeks for further evaluation of possible pre-hypertension or hypertension. . FINAL DIAGNOSIS 1. Flank pain 2. Acute UTI 3. Non-intractable vomiting with nausea, unspecified vomiting type Fei Jones PA-C 02/01/21222 * Jeni Cowan, RN - 01/31/2021 9:50 PM EDT Patient ambulated to triage desk wearing surgical mask. Patient stated she was just released from the hospital today and had a kidney stent placed for a kidney stone. Now she has a fever and is urinating only blood. documented in this [id number] Emergency department Note* Ludin Thomas, - 11/19/2020 8:12 PM EDT Emergency Department Report [facility] EMERGENCY MEDICINE Service Date:.11/19/20 PCP: No primary care provider on file. Chief Complaint: Chief Complaint Patient presents with Flank Pain Right ABD pain and right flank pain that started 2 hours ago HPI Gisel Carlton is a 45 y.o. female presents to the ED today due to For a couple hours of right mid abdominal pain, nausea and vomiting. Patient has a significant history of kidney stones, she has passed approximately 50 since 2005. Patient has had lithotripsy, she has had stents. She currently does not have a urologist. She lives in the [facility] area at this time, she is currently in town visiting some friends. Patient says she has allergy to morphine and Toradol, she can only toleratemorphine if she is given Benadryl. Patient does not have her gallbladder, she does have her appendix. Patient has no urinary frequency, urgency, or burning. Patient says that she has had a hysterectomy as well. Patient's then no heavy lifting, twisting or turning recently. Patient has multiple allergies. Patient does have a history of GERD and diabetes. Patient's had no significant spicy or greasy food or a lot of pop or caffeine or alcohol recently. Patient does take daily medication for GERD,she does not believe that is the problem. Patient states this feels slightly different than kidney stone she has had in the past. No acute complaints this time. No diarrhea. Her trauma, no falls. Review of Systems: Review of Systems Unless otherwise stated in this report or unable to obtain because of the patient's clinical or mental status as evidenced by medical record, the patient's positive and negative responses for review of systems for constitutional, eyes, ENT, cardiovascular, respiratory, gastrointestinal, neurological, , musculoskeletal, and integument systems and related systems to the presenting problem are either stated in the history of present illness or were not pertinent or were negative for the symptomsand/or complaints related to the presenting medical problem. Past Medical History: Past Medical History: Diagnosis Date Diabetes mellitus Type 2 GERD (gastroesophageal reflux disease) Hyperlipidemia Past Surgical History: Past Surgical History: Procedure Laterality Date CHOLECYSTECTOMY HYSTERECTOMY Allergies: Allergies Allergen Reactions Asa [Aspirin] nosebleeds Azithromycin Hives Ciprofloxacin Fentanyl Hives Ketorolac Hives Meperidine Hives and Itching Nalbuphine Hives Penicillins Hives Morphine Hives Medications: Patient's Medications New Prescriptions No medications on file Previous Medications CELECOXIB 100 MG CAPSULE celecoxib Celecoxib (Celebrex) 100 mg Capsule Active 100 MG PO Daily April 23, 2020 7:41pm 04-23-2020 [facility] ([id number]) ERGOCALCIFEROL 1.25 MG (90175 UT) CAPSULE 1,250 mcg. INSULIN DEGLUDEC 200 UNIT/ML SOLUTION PEN-INJECTOR INJECTION Inject 100 Units under the skin. INSULIN GLARGINE SC Inject 30 Units under the skin. INSULIN LISPRO 100 UNIT/ML VIAL Inject under the skin. METOPROLOL 25 MG TAB REGULAR RELEASE Take 50 mg by mouth 2 times daily. OMEPRAZOLE [address] CAPSULE Take 20 mg by mouth daily. ONDANSETRON 4 MG TABLET 4 mg. OZEMPIC, 0.25 OR 0.5 MG/DOSE, 2 MG/1.5ML SOLUTION PEN-INJECTOR Inject 0.25 mg weekly for 4 weeks, then increase to 0.5 mg ROSUVASTATIN 20 MG TABLET Take 20 mg by mouth daily. TIZANIDINE 4 MG CAPSULE Take by mouth 2 times daily as needed. TRAZODONE 100 MG TABLET TAKE 1 TABLET BY MOUTH NIGHTLY NEEDED for sleep Modified Medications No medications on file Discontinued Medications No medications on file Family History: History reviewed. No pertinent family history. Social History: Social History Socioeconomic History Marital status: Spouse name: Not on file Number of children: Not on file Years of education: Not on file Highest education level: Not on file Occupational History Not on file Tobacco Use Smoking status: Never Smoker Smokeless tobacco: Never Used Substance and Sexual Activity Alcohol use: Not Currently Drug use: Never Sexual activity: Not on file Other Topics Concern Not on file Social History Narrative Not on file Social Determinants of Health Financial Resource Strain: Difficulty of Paying Living Expenses: Food Insecurity: Worried About Running Out of Food in the Last Year: Ran Out of Food in the Last Year: Transportation Needs: Lack of Transportation (Medical): Lack of Transportation (Non-Medical): Physical Activity: Days of Exercise per Week: Minutes of Exercise per Session: Stress: Feeling of Stress : Social Connections: Frequency of Communication with Friends and Family: Frequency of Social Gatherings with Friends and Family: Attends [employer] Services: Active Member of Clubs or Organizations: Attends Club or Organization Meetings: Marital Status: Intimate Partner Violence: Fear of Current or Ex-Partner: Emotionally Abused: Physically Abused: Sexually Abused: Physical Exam: Physical Exam vital signs reviewed and patient is not hypoxic. General: The patient appears well and in no apparent distress. Patient is resting comfortably on cart. Not toxic, lethargic, or listless. Skin: Warm, dry, no pallor noted. There is no rash noted. Head: Normocephalic, atraumatic Eye: Normal conjunctiva, no drainage, EOMI. PERRL. Ears, Nose, Mouth, and Throat: oral mucosa is moist. Nares patent. Mouth without vesicles. Ear canals patent. Tm's without Erythema Cardiovascular: Regular Rate and Rhythm, no murmurs, gallops, or rubs Respiratory: Patient is in no distress, no accessory muscle use, lungs are clear to auscultation, no wheezing, rales or rhonchi Back: non-tender, no CVA tenderness bilaterally to percussion. NO CTLS midline or paracervicl tenderness to palpation. GI: Soft, morbidly obese, mild respiratory quadrant tenderness to palpation, mild periumbilical tenderness to palpation, no midepigastric pain, no pain over McBurney's point. No flank pain bilateral.No CVA tenderness bilateral. No peritoneal signs. Otherwiseno tenderness to palpation, no masses appreciated. No rebound, guarding, or rigidity noted. Musculoskeletal: The patient has full range of motion of all extremities and joints with no difficulty. Patient has no motor, no sensory deficits. Neurological: A&O x4, normal speech, no focal neurological deficits. Psychiatric: Cooperative Vital Signs During ED Visit Patient Vitals for the past 24 hrs: BP Temp Pulse SpO2 Height Weight 11/19/202006 1.702 m (5' 7 ) 99.8 kg (220 lb) 11/19/202005 131/76 98.2 F (36.8 C) 109 100 % Orders/Results: Orders Placed This Encounter XR ACUTE ABDOMINAL SERIES CBC, EDIF, PLATELET COMPREHENSIVE METABOLIC PANEL LIPASE ondansetron 4mg/2ml (ZOFRAN) injection 4 mg HYDROmorphone (DILAUDID) injection 1 mg sodium chloride 0.9% IV solution 1,000 mL dicyclomine (BENTYL) injection 20 mg sodium chloride 0.9% IV solution 1,000 mL URINALYSIS, MACRO URINE MICROSCOPIC Results for orders placed or performed during the hospital encounter of 11/19/20 CBC, EDIF, PLATELET Result Value Ref Range WBC (WHITE BLOOD COUNT) 5.5 3.6 - 11.0 10*3/uL RBC 4.73 4.0 - 5.4 10*6/uL HEMOGLOBIN (HGB) 13.6 12.0 - 16.0 G/DL HEMATOCRIT (HCT) 39.7 36.0 - 48.0 % MEAN CELL VOLUME 84.1 80.0 - 100.0 FL Mean Cell HGB 28.8 26.0 - 35.0 PG MEAN CELL HGB CONCENTRATION 34.3 27.0 - 37.0 G/DL RBC DISTRIBUTION 14.6 (H) 11.5 - 14.5 % PLATELET COUNT 226 130 - 400 10*3/uL MEAN PLATELET VOLUME 7.8 7.4 - 11.0 FL DIFFERENTIAL TYPE AUTO DIFF % NEUTROPHILS 48.5 37.0 - 75.0 % LYMPHOCYTE 38.9 20.0 - 55.0 % MONOCYTE % 8.5 0.0 - 10.0 % EOSINOPHIL % 3.0 0.0 - 11.0 % BASOPHIL % 1.1 0.0 - 2.0 % Absolute Neutrophil Count 2.6 1 - 6 10*3/uL LYMPHOCYTES, ABSOLUTE 2.10 1.2 - 3.4 10*3/uL MONOCYTES, ABSOLUTE 0.5 0.0 - 0.7 10*3/uL ABSOLUTE EOSINOPHIL COUNT 0.20 0 - 0 10*3/uL ABSOLUTE BASOPHIL COUNT 0.1 0 - 0 10*3/uL COMPREHENSIVE METABOLIC PANEL Result Value Ref Range GLUCOSE 301 (H) 70 - 100 MG/DL BUN 13 7.0 - 20.0 MG/DL CREATININE SERUM 0.53 (L) 0.7 - 1.2 MG/DL SODIUM 140 137 - 145 MMOL/L POTASSIUM 3.8 3.5 - 5.1 MMOL/L CHLORIDE 99 98 - 107 MMOL/L CALCIUM 10.4 (H) 8.4 - 10.2 MG/DL PROTEIN, TOTAL 8.1 6.3 - 8.2 GM/DL ALBUMIN 4.7 3.5 - 5.0 G/dl BILIRUBIN, TOTAL 0.6 0.2 - 1.3 MG/DL AST 39 (H) 14 - 36 IU/L ALKALINE PHOSPHATASE 82 38 - 126 IU/L CARBON DIOXIDE (CO2) 29 22 - 30 MMOL/L A/G Ratio 1.4 1.3 - 2.2 RATIO ALT 29 <35 IU/L ESTIMATED GFR, NON AMER >60 ml/min/1.73sq.m ESTIMATED GFR, >60 ml/min/1.73sq.m GFR COMMENT Average GFR for 40-49 years old = 99. LIPASE Result Value Ref Range LIPASE 217 23 - 300 U/L URINALYSIS, MACRO Result Value Ref Range COLOR, URINE YELLOW YELLOW APPEARANCE, URINE SL CLOUDY (A) CLEAR SPECIFIC GRAVITY, URINE >1.030 (H) 1.010 - 1.025 PH URINE 5.5 5.0 - 7.0 PROTEIN, URINE TRACE (A) NEGATIVE mg/dl GLUCOSE, URINE 500 (A) NEGATIVE mg/dl KETONES, URINE 15 (A) NEGATIVE mg/dl BILIRUBIN, URINE NEGATIVE NEGATIVE BLOOD, URINE DIPSTICK LARGE (A) NEGATIVE NITRITES, URINE NEGATIVE NEGATIVE UROBILINOGEN, URINE 2.0 (H) 0.2 - 1.0 E.U./dL LEUKOCYTE ESTERASE, URINE TRACE (A) NEGATIVE URINE MICROSCOPIC Result Value Ref Range WBC, URINE 1 TO 5 NEGATIVE /HPF RBC, URINE 1 TO 5 NEGATIVE /HPF Epithelial Cells UA 20 TO 30 /HPF Mucus 2+ (A) NEGATIVE BACTERIA, URINE 1+ (A) NEGATIVE CRYSTALS, URINE RARE (A) NONE CASTS, URINE NONE NONE /LPF COMMENT, URINE POSSIBLY CONTAMINATED SPECIMEN, CULTURE MUST BE ORDERED SEPARATELY IF DEEMED NECESSARY. Radiographic Imaging XR ACUTE ABDOMINAL SERIES Final Result IMPRESSION: 1. Slight bilateral perihilar bronchitis which may be acute or chronic in nature. 2. Unremarkable bowel gas pattern. 3. Patient is status post cholecystectomy. Procedures: Procedures Moderate Sedation Procedure: No ED Summary/MDM Urine shows large amount of blood, she has no rub blood cells noted in urine. Patient x-ray shows mild to moderate amount of stool. Patient and creatinine showed no acute changes, CBC with differential shows no major infection. Patient was given 2 L of IV fluid. Patient will be sent home with symptom treatment for kidney stone. Education was done at bedside on the number of CAT scansOf her abdomen and pelvis that she has had done in the past, and the risk and concern for radiation. Patient agrees to not have a CAT scan today, she will prophylactically be treated with pain medication, nausea medication, Flomax, and she understands importance of establishing a PCP and urologist. No questions at this disposition. Clinical Impression: 1. Renal colic on right side 2. Upper abdominal pain 3. Hematuria, unspecified type 4. Nausea and vomiting, intractability of vomiting not specified, unspecified vomiting type Renal colic, abdominal pain, nausea, hematuria; history kidney stone, diabetes No follow-ups on file. New Prescriptions No medications on file Discontinued Medications No medications on file An After Visit Summary was printed and given to the patient with above information. . OARRS report has been reviewed. Patient has multiple prescriptions filled the past for Vicodin and Percocet. Patient will be given 6 tablets to give her the benefit of doubt if she does have another kidney stone . Ludin Thomas DO 11/19/202154 Ludin Thomas DO 11/19/202158 documented in this [facility]05-24-2021 Hospital Discharge instructions* Instructions* Ludin Thomas DO - 11/19/2020 Medication has been prescribed to you to use if needed he did have a kidney stone. Return to the ERif intractable bowel pain, intractable nausea and vomiting, or any other acute concerns. * Attachments The following attachments cannot be sent through Care Everywhere. * Nausea and Vomiting (Wallisian) * Kidney Stone (Wallisian) * Hematuria (Wallisian) * Abdominal Pain with Follow Up in 24 Hours ([facility]) (Wallisian) documented in this [facility]05-10-2021 NotePROCEDURE: ABDOMEN ACUTE SERIES HISTORY: Abdominal Pain. Chest pain in the right arm and shoulder COMPARISON STUDY: Chest radiograph dated 07/08/2020. Abdominal radiograph dated 07/14/2019 TECHNIQUE: Plain radiographs of the chest and abdomen are submitted. FINDINGS: Stable cardiomediastinal silhouette. Minimal atelectasis at the left base and lingular region similar to the previous examination. Subtle infiltrate at this level may be present. No large pleural effusion is identified. Stool is noted in the descending colon with a nonspecific bowel gas pattern. No pneumothorax is appreciated. Scoliotic curvature to the right of the lumbar spine is noted and there are surgical clips suggested in the right upper quadrant region overlapping the region of the spine. Nonobstructive bowel gas pattern noted. There is no evidence for pneumoperitoneum. No abnormal calcifications noted. Phleboliths are noted in the pelvis. Stool overlies the pelvis. IMPRESSION: Very minimal left basilar atelectasis with no other acute process. Nonspecific nonobstructive bowel gas pattern as described.[facility]04[facility]22-[facility]21 Emergency department Note* Maria Del Carmen Mathews RN - 10/18/2020 9:03 PM EDT This RN in room, pt states she can not lay flat for CT, pt will be leaving AMA * Maria Del Carmen Mathews RN - 10/18/2020 9:00 PM EDT ROUNDING ASSESSMENT: ACTIVITY: Pt resting quietly on cart; Patent airway; Spontaneous breathing with regular respirations. AVPU - Alert; Skin - warm and dry; NEEDS/CONCERNS - None voiced; SAFETY: Cart in low position, side rails x2 for safety, call light within reach. * Maria Del Carmen Mathews RN - 10/18/2020 8:40 PM EDT Pt requesting pain meds, states meds have not helped with NAVAS and will not be able to lay flat for CT. * Maria Del Carmen Mathews RN - 10/18/2020 8:38 PM EDT ROUNDING ASSESSMENT: ACTIVITY: Pt resting quietly on cart; Patent airway; Spontaneous breathing with regular respirations. AVPU - Alert; Skin - warm and dry; NEEDS/CONCERNS - None voiced; SAFETY: Cart in low position, side rails x2 for safety, call light within reach. * Maria Del Carmen Mathews RN - 10/18/2020 8:10 PM EDT COVID swab placed in bin at desk * Vesna Patrick PA-C - 10/18/2020 8:03 PM EDT [facility] ED Note: NAME: Gisel Carlton 45 y.o. CSN: [id number] PCP: Physician No History: Chief Complaint: Chest Pain HPI: The history was obtained from the patient. She is a 45 y.o. female who presents with a chief complaint of Chest Pain. Patient presents ambulatory complaining of chest pain. Patient states that she has been having chest pain which is in the middle of her chest and radiates up into her right shoulder for the past 2 days. Patient was seen here 2 days ago for the same complaint and had a full work-up at that time without any findings and was discharged. Patient states that she does not currently have a primary care physician as she recently moved here from [place]. Patient states that she has the sharp stabbing pain which comes and goes and when it does go to her right arm she cannot lift her right arm for a few seconds. She states she has been having a headache but denies any fever. She states she has had some chills. She denies any recent COVID contact and states that she was COVIDpositive back in April at a hospital near [place]. She states she has had nausea with 1 episode of vomiting today. She denies any diarrhea or abdominal pain. She denies any pain in her calves states she does get some intermittent swelling of her ankles. She states she did take Tylenol at 5:00 tonight without any relief. She denies any other complaints at this time. Differential diagnosis: Considerations include but not limited to; chest wall pain, anxiety, pulmonary embolus, COVID-19 symptoms, dehydration, viral syndrome PMHx: Past Medical History: Diagnosis Date Diabetes mellitus (HCC) GERD (gastroesophageal reflux disease) History of kidney stones Hx: UTI (urinary tract infection) PMSx: Past Surgical History: Procedure Laterality Date ADENOIDS CHOLECYSTECTOMY HYSTERECTOMY LEG SURGERY TONSILLECTOMY FAM. Hx: History reviewed. No pertinent family history. SOC. Hx: Social History Socioeconomic History Marital status: Single Spouse name: Not on file Number of children: Not on file Years of education: Not on file Highest education level: Not on file Occupational History Not on file Social Needs Financial resource strain: Not on file Food insecurity Worry: Not on file Inability: Not on file Transportation needs Medical: Not on file Non-medical: Not on file Tobacco Use Smoking status: Never Smoker Smokeless tobacco: Never Used Substance and Sexual Activity Alcohol use: Never Frequency: Never Drug use: Never Sexual activity: Not on file Lifestyle Physical activity Days per week: Not on file Minutes per session: Not on file Stress: Not on file Relationships Social connections Talks on phone: Not on file Gets together: Not on file Attends islam service: Not on file Active member of club or organization: Not on file Attends meetings of clubs or organizations: Not on file Relationship status: Not on file Other Topics Concern Not on file Social History Narrative Not on file MEDs: Previous Medications Medication Sig celecoxib (CELEBREX) 100 MG capsule Take 100 mg by mouth 2 (two) times a day . insulin lispro (HumaLOG) 100 unit/mL injection Inject under the skin 3 (three) times a day before meals . metFORMIN (GLUCOPHAGE) 500 MG tablet Take 500 mg by mouth 2 (two) times a day with meals . omeprazole (PRILOSEC) 20 MG capsule Take 20 mg by mouth daily . ondansetron (ZOFRAN) 4 MG tablet Take 1 (one) tablet (4 mg total) by mouth every 6 (six) hours as needed . rosuvastatin (CRESTOR) 20 MG tablet Take 20 mg by mouth daily . tiZANidine (ZANAFLEX) 4 MG capsule Take by mouth 2 (two) times a day as needed for muscle spasms . ALL: Allergies Allergen Reactions Demerol [Meperidine] Hives Morphine Hives Nubain [Nalbuphine] Hives Penicillins Hives Toradol [Ketorolac] Hives and Itching Aspirin Other (See Comments) Pt states gives me nosebleeds nosebleeds nosebleeds Fentanyl Rash ROS: Positives and pertinent negatives as per HPI. All other systems were reviewed and are negative. Constitutional: Patient does complain of chills denies any recent illness or fever, HEENT: Patient denies headache, ear pain, nasal drainage, sore throat. Eyes: Patient denies any vision changes. Cardiovascular: Patient denies chest pain. Pulmonary: Patient denies any cough or difficulty breathing. Abdominal: Patient denies any nausea, vomiting, diarrhea, abdominal pain. Genitourinary: Patient denies any flank pain, urinary symptoms. Musculoskeletal: Patient denies any extremity pain. Skin: Patient denies any skin rashes. Neurological: Patient denies any dizziness or syncope. Psychiatric/behavioral: Patient denies Physical Exam: Patient Vitals for the past 24 hrs: BP Temp Temp src Pulse Resp SpO2 Height Weight 10/18/201954 136/65 (!) 108 18 96 % 10/18/20 1904 132/82 98.9 F (37.2 C) Oral (!) 124 18 98 % 5' 7 104.3 kg (230 lb) Physical Exam Vitals signs and nursing note reviewed. Constitutional: Appearance: She is well-developed. Comments: Well-developed female resting comfortably in the bed in no acute distress. Initial vital signs showed a heart rate of 124. HENT: Head: Normocephalic and atraumatic. Eyes: Extraocular Movements: Extraocular movements intact. Pupils: Pupils are equal, round, and reactive to light. Cardiovascular: Rate and Rhythm: Regular rhythm. Tachycardia present. Comments: Tachycardic rate, regular rhythm. Pulmonary: Effort: Pulmonary effort is normal. Breath sounds: Normal breath sounds. Comments: Lungs are clear and equal bilateral with good expansion, equal chest rise. There is no wheezes, rales, rhonchi or respiratory distress. Patient does have reproducible tenderness on palpation to the right upper anterior chest wall. Abdominal: Palpations: Abdomen is soft. Comments: Abdomen is soft and nontender. Musculoskeletal: Normal range of motion. Comments: There is no calf tenderness or pedal edema. Skin: General: Skin is warm and dry. Neurological: General: No focal deficit present. Mental Status: She is alert and oriented to person, place, and time. Psychiatric: Mood and Affect: Mood normal. Behavior: Behavior normal. Laboratory & Radiological Imaging (if done): Labs Reviewed CHEM 7 - Abnormal; Notable for the following components: Result Value Glucose 286 (*) All other components within normal limits Narrative: The eGFR should be used for monitoring renal function only and not for medication dosing. D-DIMER, QUANTITATIVE - Abnormal; Notable for the following components: D-Dimer 1.01 (*) All other components within normal limits Narrative: A D-dimer concentration of <0.5 micrograms per milliliter FEU is considered a low probability for pulmonary embolus (PE) and deep venous thrombosis (DVT). Results of this test should always be interpreted in conjunction with the patient's medical history,clinical presentation, and other findings. Clinical diagnosis should not be based on the results of the D-dimer alone. COVID-19/INFLUENZA A,B MOLECULAR - Normal Narrative: This test was performed under the FDA's Emergency Use Authorization (EUA). Testing was performed using the Mariah Kristen SARS-CoV-2 RT-PCR & Influenza A/B Nucleic Acid Teston the Kristen Alina System. This test has not been approved for use in asymptomatic patients and its performance in this patient population has not been evaluated. Negative results do not rule out the presence of SARS-CoV-2, influenza A, and/or influenza B. Fact sheets for the EUA can be found at the following links: For Healthcare Providers: https://www.fda.gov/media/065603/download For Patients: https://www.fda.gov/media/294522/download HEPATIC FUNCTION PANEL - Normal LIPASE - Normal PT/INR - Normal Narrative: During the induction phase of oral anticoagulation, the INR may not reflect the anticoagulation status of the patient. Therapeutic ranges for INR's are: Most clinical situations: INR 2.0-3.0 Mechanical Prosthetic Valve: INR 2.5-3.5 Critical: INR >5.0 DRUGS OF ABUSE SCREEN, URINE - Normal Narrative: Screen results should be used for treatment purposes only. CBC AND DIFFERENTIAL Narrative: The following orders were created for panel order CBC w/ Diff. Procedure Abnormality Status --------- ------ CBC Auto Differential[[id number]] Final result Please view results for these tests on the individual orders. TROPONIN CBC WITH AUTO DIFFERENTIAL XR Chest AP/PA and LAT Final Result Lungs are clear. No acute cardiopulmonary disease. Workstation ID: [id number] CT Pulmonary Arteries (Results Pending) EKG: Sinus tachycardia RATE: 114 AXIS: Normal axis INTERVALS: SC interval of 120 ms, QRS duration of 90 ms. QT/QTc is 338/465 ms COMPARISON: Unchanged from 10/16/2020 INTERPRETATION: Sinus tachycardia at a rate of [address] changes indicating ischemia or injury. EKG was reviewed with Dr. Beth Procedures: Procedures ED Course / Medical Decision Making: Patient presents amatory complaining of chest pain which she describes as a heaviness in the middleof her chest which radiates to the right shoulder for the past 2 days. Patient states she was seen here 2 days ago for the same complaint had a normal work-up and was discharged. Patient states she continues to have pain as well as some intermittent shortness of breath. She denies any cough. She states she does have a headache has had some chills without fever. She states she had 1 episode of vomiting today. She denies any pain in her calves states she has had some slight swelling of her ankles. Patient states she does not currently have a primary care physician she has she recently moved here from the [facility]. She did take Tylenol at 5:00. On exam patient's vital signs did show an elevated heart rate. She is resting comfortably in the bed in no acute distress. Mucous membranes aremoist. Lungs are clear and equal. Patient does have some reproducible tenderness on palpation to the right anterior chest wall. Abdomen is soft and nontender. Patient is moving all extremities appropriately there is no calf tenderness or pedal edema. Patient's labs did show an elevated D-dimer and hyperglycemia. Chest x-ray was negative for any acute process. I did order a CT of the chest but I was advised by the nursing staff the patient states that she will not go to CAT scan unless she gets Dilaudid. I did review patient's previous record she does frequent emergency departments quite freque ntly and was just here 2 days ago. I did review her OARRS report and her Narc score is 350. Patientwas recently given to prescriptions for [facility] by to various providers at the beginning of the month. I do not feel this patient requires narcotic prescriptions at this time. She was given IV fluids, Benadryl and Reglan. She was offered Tylenol for pain. I was advised by the nursing staff the patient states that she wants to sign out AGAINST MEDICAL ADVICE at this time. Patient was made aware thatshe could possibly have a blood clot in her lungs and she risks of or permanent disability bysigning out. Patient did sign AMA and left. Condition was stable. This note was completed using a [employer] voice recognition dictation program. While accurate for the most part there may be some inaccuracies from the spoken word. Clinical Impression: 1. Chest pain, unspecified type 2. Elevated d-dimer 3. Left against medical advice Disposition: Patient is being Other Disposition: left AMA Vesna Patrick [employer] Produ[employer] Production Team Member [facility] Emergency Department Vesna Patrick PA-C 10/18/202126 * Maria Del Carmen Mathews RN - 10/18/2020 7:56 PM EDT ROUNDING ASSESSMENT: ACTIVITY: Pt resting quietly on cart; Patent airway; Spontaneous breathing with regular respirations. AVPU - Alert; Skin - warm and dry; NEEDS/CONCERNS - None voiced; SAFETY: Cart in low position, side rails x2 for safety, call light within reach. * Maria Del Carmen Mathews RN - 10/18/2020 7:36 PM EDT ROUNDING ASSESSMENT: ACTIVITY: Pt resting quietly on cart; Patent airway; Spontaneous breathing with regular respirations. AVPU - Alert; Skin - warm and dry; NEEDS/CONCERNS - None voiced; SAFETY: Cart in low position, side rails x2 for safety, call light within reach. * Monica Bajwa RN - 10/18/2020 7:02 PM EDT Pt states has been having intermittent chest pain since Thursday that has not gotten any better. Pt states she feels pain and pressure going from her R shoulder down to her R arm. Pt states has some nausea and some SOB. * Dennis Dexter - 10/18/2020 6:57 PM EDT Bed: 16 Expected date: Expected time: Means of arrival: Comments: Second documented in this [id number] Hospital Discharge instructions * Instructions* Vesna Patrick PA-C - 10/18/2020 You understand the risk of leaving AGAINST MEDICAL ADVICE with an elevated D- dimer you could have ablood clot in your lungs. You are risking or permanent disability by leaving at this time. Follow-up with your primary care provider or the one listed for any further evaluation or treatment. * Attachments The following attachments cannot be sent through Care Everywhere. * Chest Pain (Wallisian) documented in this [id number] Emergency department Note* Sybil Wilson RN - 10/16/2020 9:57 PM EDT PT PLACED ON 2LPM VIA KS FOR STATS 89% ON ROOM AIR, NOW [facility] TRANSPORTING PT TO CT * Sybil Wilson RN - 10/16/2020 9:19 PM EDT PT CALL LIGHT ANSWERED, PT STATES HER HEADACHE ISN'T ANY BETTER, BUT DOES STATE NO FURTHER NAUSEA, REGLAN EFFECTIVE FOR THAT. * Sybil Wilson RN - 10/16/2020 8:10 PM EDT THIS RN UNSUCCESSFUL WITH IV AND BLOOD DRAW XRAY [facility] * Sybil Wilson RN - 10/16/2020 7:52 PM EDT PT STATES DIZZINESS STARTED JUST A FEW HOURS AGO , PT STATES I PASSED OUT A FEW TIMES, I WOKE UP THREE TIMES I WAS ON THE FLOOR PT DENIES HEAD INJURY BUT STATES NECK PAIN AND BACK PAIN PT STATES NOW WITH CHEST PAIN * Demario Wakefield - 10/16/2020 7:49 PM EDT Bed: 11 Expected date: Expected time: Means of arrival: Comments: DEBBIE documented in this [id number] Miscellaneous Notes* Telephone Encounter - Esmer Dickey LPN - 10/16/2014 5:57 PM EDT Spoke with [facility]con regarding pathology report. We will obtain celiac markers. Patient is aware to have lab work done. Please call patient to arrange follow-up appointment with Dr. Taylor in 4-6 weeks * Telephone Encounter - Esmer Dickey LPN - 09/27/2014 11:51 AM EDT Will discuss with MD * Telephone Encounter - Li Ragland Ma - 09/26/2014 1:10 PM EDT Heide nurse please review. * Telephone Encounter - Karuna Taylor - 09/25/2014 4:34 PM EDT Non specific inflamation in duodenum documented in this encounterLem[facility] ClinicDis[facility] summary Author Maxim Pinto [facility] February 01, 2023 11:12am Note Date/Time February 01, 2023 11: 10am [facility] [address] [place] [address] Discharge Summary Signed Patient: Gisel Carlton MR#: [id number] : 1975 Acct:[id number] Age/Sex: 47 / F Adm Date: 3 Loc: Room: [address] [place] [address]: Yves Dukes MD Copies to: MD Maxim Perales MD Nicole E Leach, CERTIFIED PROSTHETIST VICE PRESIDENT, DIRECTOR OF PHOTOGRAPHY~ Providers Date of Discharge: 02/01/23 Discharging Provider: Maxim Pinto Primary Care Provider: Skye Jones Discharge Diagnosis (1) Suicidal ideation: (2) Major depressive disorder, recurrent: Final Diagnosis Final Discharge Diagnosis: Major depressive disorder, recurrent Summary Hospital Course Hospital course: According to admission note: This is a 47-year-old female with reported history of depression who presents for inpatient admission due to worsening of suicidialideation and depressed feelings. Reportedly, Pt states that she came to the hospital last night due to right kidney pain but mostly just depressed and admitted to being depressed for a couple of years. At the time of the interview Gisel presented as tearful and sad. She reports a longstanding history of depression manifested as 5 recent hospitalizations (since November, the most recent being 2 weeks ago) for depression and suicidal ideation. She reports that her depression is constant. Patient was personally seen by me on the day of the encounter.? I reviewed the history and performed the baez elements of the assessment.? I formulated the planof care and confirmed this with the resident as noted below The patient reports that she recently feels as though she has lost everything ,marking her diagnosis with COVID in 2019, leaving her in 2020, losing her house, vehicles, apartment, job, peace and privacy , living with her parents, four recent surgeries, injuries, and internal family conflict with her seven siblings as very large sources of stress. She states that she cares for her mother (who has parkinson's) at home by doing housework and bringing her to appointments, but reports that her siblings recently criticized her and her level of contribution to her parents. She states that this is the major reason for her recent increase in depressed feelings. She states that the only practices that have improved her feelings are walking and meeting with her day treatment group, though she states this is difficult to do as she does not currently have a vehicle. Past psych history: Reports following with day treatment program in [place] and is supposed to meet with a Fanny there, but has not. Denies previously being diagnosed with any psychiatric illnesses but admits to longstanding feelings of depression. Past hospitalizations: 5 hospitalizations since November, most recent two weeks ago. Past suicide attempts: Denies previous attempts, admits previous ideation. Family psych history: Denies history of psychiatric illness in family. Previous medications: Aripirazole, duloxetine, gabapentin, hydroxyzine pamoate, olanzapine, trazodone, venlafaxine Alcohol and drug use: Denies current/history of substance use. Living: Reports living with mother and father at home. Reports recent stress in regard to living situation, with siblings criticizing her for not doing enough their parents. 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 Relationships: Reports recent serious relationship but states that her partneris uncommitted and leaves her feeling lonely. Patient was transition from Cymbalta to Effexor. She tolerated the medication without any problems and did not report any side effects. She had gradual improvement of her symptoms as time went on. She was social on the unit and attended groups. She did not exhibit any behavior concerning for suicidality. She did not have any conflict with peers or staff. On the day of discharge report that she is feeling good. She denied any depression or suicidality. Sheis looking forward to returning back to day treatment which she stated she enjoyed. She stated that she would continue medications and follow-up with outpatient appointments. Condition Condition at Discharge: Stable Status at Discharge Cognitive/behavioral status at discharge: Mental Status Exam: Appearance: grossly normal Mental Status: mental status grossly normal Mood: Euthymic mood Affect: Normal affect Speech and Movement: speech and movement normal and speech clear Attitude: cooperative Thought Process: normal Thought Content: Denied hallucinations, no homicidality and no suicidality Insight: Good Judgment: Good Functional status at discharge: independent ambulation Overall status at discharge: patient is back to baseline Time Spent with Patient Time spent providing/coordinating discharge services (# min): 30 Exam Physical Exam Vital Signs: Temp Pulse Resp BP Pulse Ox O2 Del Method 98.0 F 91 H 16 134/90 93 L Room Air 02/01/23 07:30 02/01/23 07:30 02/01/23 07:30 02/01/23 07:30 02/01/23 07:30 02/01/23 07:30 Discharge Plan Discharge Plan Patient Disposition: Home Activity: No Activity Restriction Diet: Regular Additional Instructions: Regular Diet No Activity Restrictions Instructions: Depression, Adult (DC), [facility] [place] Instructions Prescriptions: New venlafaxine [Effexor XR] 150 mg capsule,extended release 24hr 150 mg PO DAILY Qty: 30 0RF Continued omeprazole 20 mg Capsule,Delayed Release(Dr/Ec) 20 mg PO DAILY tizanidine 4 mg tablet 4 mg PO TID PRN (Reason: Pain) Patient Comments: TAKE 1 TABLET BY MOUTH EVERY 6 HOURS NEEDED FOR MUSCLE SPASMS gabapentin 600 mg tablet 600 mg PO TID Patient Comments: TAKE 1 TABLET BY MOUTH THREE TIMES DAILY rosuvastatin 20 mg tablet 20 mg PO DAILY Patient Comments: TAKE 1 TABLET BY MOUTH ONCE DAILY celecoxib 200 mg capsule 200 mg PO DAILY Patient Comments: TAKE 1 CAPSULE BY MOUTH DAILY loratadine 10 mg tablet 10 mg PO DAILY Patient Comments: TAKE 1 TABLET BY MOUTH DAILY insulin aspart U-100 [Novolog FlexPen U-100 Insulin] 100 unit/mL (3 mL) insulin pen 20 unit SUBCUT TID.AC Patient Comments: INJECT 35 UNITS SUBCUTANEOUSLY THREE TIMES DAILY BEFORE MEALS trazodone 100 mg Tablet 200 mg PO HS 30 Days Qty: 60 0RF hydroxyzine pamoate 50 mg capsule 50 mg PO Q6H PRN (Reason: Anxiety) Patient Comments: TAKE 1 CAPSULE BY MOUTH FOUR TIMES DAILY NEEDED FOR ANXIETY levothyroxine 50 mcg Tablet 50 mcg PO DAILY.0630 Qty: 90 0RF metoclopramide HCl 5 mg Tablet 5 mg PO TID.AC PRN (Reason: nausea) Qty: 30 0RF promethazine 25 mg Tablet 25 mg PO Q6H PRN (Reason: Nausea/Vomiting) Qty: 0 0RF aripiprazole 10 mg Tablet 10 mg PO QHS 30 Days Qty: 30 0RF metoprolol tartrate 25 mg tablet 50 mg PO BID Patient Comments: TAKE 1 TABLET BY MOUTH TWICE DAILY polyethylene glycol 3350 [Miralax] 17 gram powder in packet 17 g PO DAILY PRN (Reason: Constipation) Qty: 1 0RF Rx Instructions: mix into 4-8 oz. of any hot/cold/room temp. beverage; use immediately insulin aspart U-100 [Novolog FlexPen U-100 Insulin] 100 unit/mL (3 mL) insulin pen See Protocol SUBCUT ACHS Protocol: Corrective Scale #2 Condition: 150-199 mg/dL Dose/Route: 2 unit Condition: 200-249 mg/dL Dose/Route: 3 unit Condition: 250-299 mg/dL Dose/Route: 5 unit Condition: 300-349 mg/dL Dose/Route: 7 unit Condition: 350-399 mg/dL Dose/Route: 8 unit Condition: greater than or = 400 mg/dL Dose/Route: 9 unit Protocol Text: If the corrective scale dose has been administered within the past 4 hours, do not use corrective scale again unless otherwise directed insulin glargine [Lantus Solostar U-100 Insulin] 100 unit/mL (3 mL) Insulin Pen 32 units subcut DAILY 30 Days Qty: 9.6 0RF olanzapine 5 mg tablet 5 mg PO HS Patient Comments: TAKE 1 TABLET BY MOUTH NIGHTLY ondansetron 4 mg tablet,disintegrating 4 mg PO Q8H PRN (Reason: Nausea) Patient Comments: TAKE 1 TABLET BY MOUTH EVERY 8 HOURS NEEDED FOR NAUSEA and FOR VOMITING nitrofurantoin monohyd/m-cryst 100 mg capsule 100 mg PO BID Patient Comments: TAKE 1 CAPSULE BY MOUTH TWICE DAILY FOR 5 DAYS Discontinued duloxetine 60 mg Capsule,Delayed Release(Dr/Ec) 60 mg PO QHS 30 Days Qty: 30 0RF duloxetine 60 mg Capsule,Delayed Release(Dr/Ec) 60 mg PO DAILY 15 Days Qty: 15 1RF Follow Up: [facility] - [facility] [Outside] - 02/02/23 10:15 am (You have a follow up appointment with [facility] on Thursday, February 02, 2023 at 10:15am. This will be a phone call appointment with a child support case officer, please have your phone available around this time. At this time further appointments will be made.) [facility] Hotline [Outside] Skye Jones APRN, FACTORY EXPERT-C [Primary Care Provider] - (Contact your primary careprovider with any medical needs. ) Documented By: Maxim Pinto MD 02/01/23 1108 Signed By: <Electronically signed by Maxim Pinto MD> 02/01/23 1112 [facility] Work Phone: Evaluation + Plan note Future Appointments Appointment Date:04/25/2022 04:15:00 PM Scheduled Provider: [facility] Chronic abdominal pain- Primary Abdominal pain, unspecified site Hyperglycemia Other abnormal glucose Acute intractable headache, unspecified headache type documented in this encounter [facility] note* Diagnosis Chest pain, unspecified type- Primary Elevated d-dimer Left against medical advice documented in this encounter [facility] note* Diagnosis Celiac disease- Primary documented in this encounter [facility] note* Diagnosis Renal colic on right side- Primary Renal colic Upper abdominal pain Abdominal pain, other specified site Hematuria, unspecified type Nausea and vomiting, intractability of vomiting not specified, unspecified vomiting type documented in this encounter [facility] note* Diagnosis Pyelonephritis- Primary Pyelonephritis, unspecified Flank pain Abdominal pain, unspecified site documented in this encounter L2 Phone: evaluation note* Diagnosis Acute upper respiratory infection- Primary Acute upper respiratory infections of unspecified site documented in this encounter [facility] note* Diagnosis Hematuria- Primary Hematuria, unspecified Flank pain Abdominal pain, unspecified site Acute UTI Urinary tract infection, site not specified Non-intractable vomiting with nausea, unspecified vomiting type documented in this encounter [facility] note* Diagnosis Kidney stone- Primary Calculus of kidney documented in this encounter [facility] note* Diagnosis Right flank pain- Primary Abdominal pain, unspecified site Acute cystitis with hematuria Acute cystitis documented in this encounter L2 Phone: evaluation note* Diagnosis Encounter for screening for COVID-19- Primary Acute maxillary sinusitis, recurrence not specified documented in this encounter [facility] note* Diagnosis Flank pain- Primary Abdominal pain, unspecified site Kidney stone Calculus of kidney Acute pyelonephritis Acute pyelonephritis without lesion of renal medullary necrosis documented in this encounter L[employer] Phone: evaluation note* Diagnosis Drug-seeking behavior- Primary Other, mixed, or unspecified nondependent drug abuse, unspecified Right flank pain Abdominal pain, unspecified site documented in this encounter L2 Phone: evaluation note* Diagnosis Right flank pain- Primary Abdominal pain, unspecified site documented in this encounter L2 Phone: evalpcnadr note* Diagnosis Cervical radiculopathy Brachial neuritis or radiculitis nos Cervical spondylosis without myelopathy documented in this encounter [employer] Work Phone: evaluation note* Diagnosis Hypotension, unspecified hypotension type Right flank pain Abdominal pain, unspecified site Nausea and vomiting, unspecified vomiting type 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) Prolonged QT interval Nonspecific abnormal electrocardiogram (ECG) (EKG) documented in this [facility]No assessment information availableUniversity [facility] Work Phone: evaluation note* Diagnosis Right flank pain- Primary Abdominal pain, unspecified site Nausea and vomiting, unspecified vomiting type documented in this encounter [facility] [place] Work Phone: evaluation note* Diagnosis Flank pain- Primary Abdominal pain, unspecified site documented in this encounter [facility] [employer] Work Phone: evaluation note* Diagnosis Right flank pain- Primary Abdominal pain, unspecified site Hematuria, unspecified type Renal colic documented in this encounter [facility] [employer] Phone: evaluation note* Diagnosis Generalized abdominal pain- Primary Abdominal pain, generalized Anxiety state Anxiety state, unspecified documented in this encounter [facility] [place] Work Phone: evaluation note* General: Patient is a 47yo [place] female lying in hospital bedAppearance: Appears stated age.Attitude: Calm, cooperative.Behavior: Appropriate eye contact.Motor Activity: No agitation or retardation. No EPS/TD. Normal gait.Speech: Regular rate, rhythm, volume and tone, spontaneous, fluent. Mood: DepressedAffect: CongruentThought Process: Organized, linear, goal directed. Associations are logical.Thought Content: Does not endorse suicidal or homicidal ideation, no delusions elicited.Thought Perception: Does not endorse auditory or visual hallucinations, does not appear to be responding to hallucinatory stimuli. Cognition: Alert, oriented x3. No deficits noted. Adequate fund of knowledge. No deficit in recent and remote memory. No deficits in attention, concentration or language.Insight: PoorJudgment: Can make reasonable decisions about ordinary activities of daily living and necessary medical care recommendations. [facility]* Diagnosis Onset Date Resolution Status Abdominal pain acute Depressive disorder due to a nother medical condition with depressive features acute Diabetes mellitus acute Hypertension acute Shoulder pain, right acute Suicidal ideation acute UTI (urinary tract infection) acute [facility] Work Phone: Evaluation note* Diagnosis Onset Date Resolution Status Depressive disorder due to a nother medical condition with depressive features acute Diabetes mellitus acute Hypertension acute Suicidal ideation acute Abdominal pain resolved Shoulder pain, right resolve d UTI (urinary tract infection) resolved Major depressive disorder, recurrent acute Major depressive disorder, recurrent acute Chronic GERD acute Diabetes mellitus acute Diabetic gastroparesis acute Hypertension acute Hypothyroid acute Major depressive disorder, recurrent acute [facility] Work Phone: Evaluation note* Diagnosis Onset Date Resolution Status Depressive disorder due to a nother medical condition with depressive features acute Diabetes mellitus acute Hypertension acute Suicidal ideation acute Abdominal pain resolved Shoulder pain, right resolve d UTI (urinary tract infection) resolved Major depressive disorder, recurrent acute Major depressive disorder, recurrent acute Chronic GERD acute Diabetes mellitus acute Diabetic gastroparesis acute Hypertension acute Hypothyroid acute Major depressive disorder, recurrent acute Right flank pain acute [facility] Work Phone: Evaluation note* Diagnosis Onset Date Resolution Status Depressive disorder due to a nother medical condition with depressive features acute Diabetes mellitus acute Hypertension acute Suicidal ideation acute Abdominal pain resolved Shoulder pain, right resolve d UTI (urinary tract infection) resolved Major depressive disorder, recurrent acute Major depressive disorder, recurrent acute Chronic GERD acute Diabetes mellitus acute Diabetic gastroparesis acute Hypertension acute Hypothyroid acute Major depressive disorder, recurrent acute Major depressive disorder, recurrent acute Right flank pain acute Suicidal ideation acute [facility] Work Phone: Evaluation note* Diagnosis Onset Date Resolution Status Major depressive disorder, recurrent acute Suicidal ideation acute [facility] Work Phone: Evaluation note* Diagnosis Cervical stenosis of spine- Primary Spinal stenosis in cervical region Cervical stenosis of spine Spinal stenosis in cervical region Pain Generalized pain Cervical spinal stenosis Spinal stenosis in cervical region [facility] this [facility] Diagnosis Postoperative hematoma of musculoskeletal structure following musculoskeletal procedure- Primary Post-operative pain Other acute postoperative pain Acute bursitis of left shoulder Diabetes mellitus, type II, insulin dependent (HCC) Type II or unspecified type diabetes mellitus without mention of complication, not stated as uncontrolled Class 3 severe obesity due to excess calories with serious comorbidity and body mass index (BMI) of 40.0 to 44.9 in adult (HCC) Acute bursitis of left shoulder Post-operative pain Other acute postoperative pain documented in this encounter [facility] HEALTHHistory and physical note Author Braulio argueta [facility] January 29, 2023 2:12pm Note Date/Time January 29, 2023 2:1 2pm [facility] [address] [place] [address] Psychiatry H&P Signed Patient: Gisel Carlton MR#: [id number] : 1975 Acct:[id number] Age/Sex: 47 / F Adm Date: 3 Loc: 1S Room: [address] [place] [address] Type: ADM IN Attending Dr: Yves Dukes MD Copies to: MD Skye Perales APRN, DIRECTOR OF PHOTOGRAPHY~ Date of Service: 01/29/2023 HPI History of Present Illness History of present illness: This is a 47-year-old female with reported history of depression who presents for inpatient admission due to worsening of suicidial ideation and depressed feelings. Reportedly, Pt states that she came to the hospital last night due to right kidney pain but mostly just depressed and admitted to being depressed for a couple of years. At the time of the interview Gisel presented as tearful and sad. She reports a longstanding history of depression manifested as 5 recent hospitalizations (since November, the most recent being 2 weeks ago) for depression and suicidal ideation. She reports that her depression is constant. Patient was personally seen by me on the day of the encounter. I reviewed the history and performed the baez elements of the assessment. I formulated the planof care and confirmed this with the resident as noted below The patient reports that she recently feels as though she has lost everything ,marking her diagnosis with COVID in 2019, leaving her in 2019, losing her house, vehicles, apartment, job, peace and privacy , living with her parents, four recent surgeries, injuries, and internal family conflict with her seven siblings as very large sources of stress. She states that she cares for her mother (who has parkinson's) at home by doing housework and bringing her to appointments, but reports that her siblings recently criticized her and her level of contribution to her parents. She states that this is the major reason for her recent increase in depressed feelings. She states that the only practices that have improved her feelings are walking and meeting with her day treatmentgroup, though she states this is difficult to do as she does not currently have a vehicle. Past psych history: Reports following with day treatment program in [place] and is supposed to meet with a Fanny there, but has not. Denies previously being diagnosed with any psychiatric illnesses but admits to longstanding feelings of depression. Past hospitalizations: 5 hospitalizations since November, most recent two weeks ago. Past suicide attempts: Denies previous attempts, admits previous ideation. Family psych history: Denies history of psychiatric illness in family. Previous medications: Aripirazole, duloxetine, gabapentin, hydroxyzine pamoate, olanzapine, trazadone, venlaxafine Alcohol and drug use: Denies current/history of substance use. Living: Reports living with mother and father at home. Reports recent stress in regard to living situation, with siblings criticizing her for not doing enough their parents. 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 Relationships: Reports recent serious relationship but states that her partneris uncommitted and leaves her feeling lonely. Mental status: Grossly normal Mood: Tearful and sad Affect: Sad, stressed Speech and movement: Normal Attitude: Cooperative, engaged Thought process: Normal Thought content: Suicidal thoughts, hopelessness and denied AVH or paranoid Insight: Intact Judgment: Intact Review of systems - Admits to congestion in nose and heart racing with her anxiety, occurring as recently as last night Constitutional: Denies Fatigue, malaise. Neuro: Denies seizure, numbness/tingling in extremities HEENT: Denies vision/hearing changes. Pulmonary: Denies SOB, dyspnea, cough, wheezing. Cardiac: Denies Chest pain/pressure. GI: Denies Abdominal pain, N/V, constipation and diarrhea : Denies Dysuria, hematuria, polyuria. Physical exam General: In some distress Skin: Intact HEENT: Head atraumatic, face symmetrical. Pulm: Some coughing with lung auscultation. Lungs clear to auscultation bilaterally Cardio: Regular rate and rhythm Musculoskeletal: Moves all extremities. Neuro: Patient alert, oriented x3. Gait normal. CN II: visual faulkner intact CN III, IV, : EOM intact, no nystagmus. CN V: sensation intact to light touch. CN VII: raises eyebrows, smile/frown, puff out cheeks symmetrically. CN VIII: hearing intact bilaterally. CN IX, X: Voice normal, soft palate elevation normal, symmetrical. CN XI: Shoulder shrug strong, equal bilaterally. CN XII: Tongue protrusion midline Review of Systems Constitutional Constitutional: Denies fatigue, Denies fever(s) and Denies weight loss Eyes Eyes: Denies change in vision and Denies eye pain ENT Ears, Nose, Mouth, and Throat: Denies ear discharge, Denies otalgia, Denies nasal discharge and Denies nose pain Cardiovascular Cardiovascular: Denies chest pain Comments: admits feelings of heart racing with anxiety Respiratory Respiratory: Denies cough, Denies dyspnea and Denies wheezing Gastrointestinal Gastrointestinal: Denies abdominal pain, Denies change in bowel habits, Denies constipation and Denies vomiting Genitourinary Genitourinary: Denies difficulty voiding and Denies dysuria Neurologic Neurologic: Denies paresthesias and Denies seizure-like activity PMFSH Vaccinated for COVID-19?: Unknown Medical History (Updated 01/29/23 @ 01:51 by Vivek Ceballos Jr, MD) Carpal tunnel syndrome, bilateral Chronic GERD COVID-19 Diabetes Diabetic gastroparesis Hernia of abdominal wall Hyperlipemia Hypertension Hypothyroid Kidney calculi Leg fracture, right Torn rotator cuff RIGHT Surgical History H/O lithotripsy H/O: hysterectomy History of cholecystectomy History of renal stent History of tonsillectomy and adenoidectomy Hx of hand surgery right hand, trigger finger Hx of hand surgery Left 09/01/2022 - trigger finger release Family History (Updated 01/29/23 @ 02:35 by Sharon Cox LPN) Father Heart disease Mother Parkinsons disease Mother Hypertension Social History Smoking Status: Never smoker Substance Use Type: None Social History Comments: Lives with mom and dad, and her 22 y/o son Meds Medications and Allergies Allergies ketorolac [From Toradol] Allergy (Verified 01/28/23 20:06) Hives melon Allergy (Verified 01/28/23 20:06) Swelling meperidine [From Demerol] Allergy (Verified 01/28/23 20:06) Hives morphine Allergy (Verified 01/28/23 20:06) Unknown Reaction nalbuphine [From Nubain] Allergy (Verified 01/28/23 20:06) Hives Penicillins Allergy (Verified 01/28/23 20:06) Hives Home Medications omeprazole 20 mg capsule,delayed release 20 mg PO DAILY 09/13/18 [History Confirmed 01/29/23] metoprolol tartrate 25 mg tablet 50 mg PO BID 12/21/19 [History Confirmed 01/29/23] tizanidine 4 mg tablet 4 mg PO TID PRN Pain 04/23/20 [History Confirmed 01/29/23] gabapentin 600 mg tablet 600 mg PO TID 08/02/22 [History Confirmed 01/29/23] rosuvastatin 20 mg tablet 20 mg PO DAILY 08/02/22 [History Confirmed 01/29/23] polyethylene glycol 3350 17 gram oral powder packet (Miralax) 17 g PO DAILY PRN Constipation #1 ea 11/27/22 [Rx Confirmed 01/29/23] celecoxib 200 mg capsule 200 mg PO DAILY 12/06/22 [History Confirmed 01/29/23] insulin aspart U-100 100 unit/mL (3 mL) subcutaneous pen (Novolog FlexPen U-100 Insulin aspart) 20 unit subcut TID.AC 12/06/22 [History Confirmed 01/29/23] loratadine 10 mg tablet 10 mg PO DAILY 12/06/22 [History Confirmed 01/29/23] duloxetine 60 mg capsule,delayed release 60 mg PO QHS 30 days #30 caps 12/10/22 [Rx Confirmed 01/29/23] trazodone 100 mg tablet 200 mg PO HS 30 days #60 tabs 12/10/22 [Rx Confirmed 01/29/23] insulin aspart U-100 100 unit/mL (3 mL) subcutaneous pen (Novolog FlexPen U-100 Insulin aspart) See Protocol subcut ACHS 12/14/22 [History Confirmed 01/29/23] duloxetine 60 mg capsule,delayed release 60 mg PO DAILY 15 days #15 caps 01/03/23 [Rx Confirmed 01/29/23] insulin glargine 100 unit/mL (3 mL) subcutaneous pen (Lantus Solostar U-100 Insulin) 32 units (0.32 mL) subcut DAILY 30 days #9.6 mL 01/03/23 [Rx Confirmed 01/29/23] hydroxyzine pamoate 50 mg capsule 50 mg PO Q6H PRN Anxiety 01/18/23 [History Confirmed 01/29/23] levothyroxine 50 mcg tablet 50 mcg PO DAILY.0630 #90 tabs 01/18/23 [Rx Confirmed 01/29/23] aripiprazole 10 mg tablet 10 mg PO QHS 30 days #30 tabs 01/22/23 [Rx Confirmed 01/29/23] metoclopramide HCl 5 mg tablet 5 mg PO TID.AC PRN nausea #30 tabs 01/22/23 [Rx Confirmed 01/29/23] promethazine 25 mg tablet 25 mg PO Q6H PRN Nausea/Vomiting #0 tabs 01/22/23 [Rx Confirmed 01/29/23] nitrofurantoin monohydrate/macrocrystals 100 mg capsule 100 mg PO BID 01/29/23 [History Confirmed 01/29/23] olanzapine 5 mg tablet 5 mg PO HS 01/29/23 [History Confirmed 01/29/23] ondansetron 4 mg disintegrating tablet 4 mg PO Q8H PRN Nausea 01/29/23 [History Confirmed 01/29/23] Exam Physical Exam Vital Signs: Temp Pulse Resp BP Pulse Ox O2 Del Method 97.8 F 107 H 18 133/84 97 Room Air 01/29/23 02:43 01/29/23 02:43 01/29/23 02:43 01/29/23 02:43 01/29/23 02:43 01/29/23 02:43 Const General: cooperative and comfortable Orientation: alert, awake and oriented x3 HEENT Head: normal to inspection Ears: hearing grossly normal bilaterally Eyes Visual Faulkner: normal visual faulkner by confrontation EOM: EOM intact bilaterally Resp Effort & Inspection: cough Auscultation: clear to auscultation bilaterally Cardio Rate: regular rate Rhythm: regular rhythm Skin General: no rashes or lesions noted Neuro General: patient alert, patient awake and patient oriented x3 Cranial Nerves: CN's II-XII intact bilaterally Cognition: normal cognition Speech: speech normal Gait: normal gait Psych Appearance: grossly normal Mental Status: mental status grossly normal Mood: other (tearful and sad) Affect: tearful Speech and Movement: speech and movement normal Attitude: cooperative Thought Process: normal Thought Content: suicidality Insight: insight good Judgment: judgment good Results Labs 01/28/23 23:03 01/28/23 23:03 Psychiatry Labs: 01/28/23 01/28/23 01/28/23 20:13 23:03 23:03 RBC 4.42 Hgb 13.0 Hct 37.8 MCV 85.5 MCH 29.4 MCHC 34.4 RDW 13.0 Plt Count 202 MPV 6.6 Sodium 141 Potassium 3.8 Chloride 104 Carbon Dioxide 31.8 H Anion Gap 9.0 BUN 18 Creatinine 0.72 Calcium 9.2 Total Bilirubin 0.3 AST 16 ALT 23 Alkaline Phosphatase 73 Total Protein 7.3 Albumin 4.0 Urine Color [place] A Urine Appearance Cloudy A Urine pH 6.5 Ur Specific [place] 1.023 Urine Protein Trace H Urine Glucose (UA) Normal Urine Ketones Trace H Urine Occult Blood 3+ H Urine Nitrite Negative Ur Leukocyte Esterase 3+ H Urine RBC Innumerable H Urine WBC 10-19 H Assessment/Plan (1) Suicidal ideation: Code(s): R45.851 - Suicidal ideations Status: Acute (2) Major depressive disorder, recurrent: Code(s): F33.9 - Major depressive disorder, recurrent, unspecified Status: Acute Plan Admit to for management of depression and to ensure safety of self due to SI. Switch Cymbalta to Effexor to help with depression Monitor suicidal behaviors for safety of self (15-minute face check). Recommend attending groups and psychoeducation for building coping skills. Risks, benefits and indications of medications were discussed with the patient. The patient verbalized understanding. No abnormal movements noted on exam. AIMS is Zero. Involve friends/family members to coordinate care and ensure appropriate outpatient appointments are scheduled prior to discharge. Documented By: Braulio Dukes MD [id number] Signed By: <Electronically signed by Braulio Dukes MD> 01/29/23 1412 [facility] Work Phone: History general Narrative - Reported* Type Description Date Medical History Kidney Stones Medical History Diabetes Type II Medical History High Cholesterol Medical History GERD Medical History Tachycardia Surgical History Hysterectomy Surgical History Gallbladder Surgical History Lithotripsy Surgical History Broken right leg Surgical History Bilateral Carpal Tunnel Release Hospitalization History Tachycarida 2012 Hospitalization History Pneumonia as child Hospitalization History See surgical hx [facility] Other Hisniuz general Narrative - Reported* Type Description Date Medical History Kidney Stones Medical History Diabetes Type II Medical History High Cholesterol Medical History GERD Medical History Tachycardia Surgical History Hysterectomy Surgical History Gallbladder Surgical History Lithotripsy Surgical History Broken right leg Surgical History Bilateral Carpal Tunnel Release Hospitalization History Tachycarida 2012 Hospitalization History Pneumonia as child Hospitalization History See surgical hx Hospitalization History headaches/vision changes 02/2023 [facility] Other Hospital course Narrative No data available for this section [facility]* Instructions* Esmer Tamayo PA-C - 10/17/2020 Connecting with a Primary Care Provider or Family Doctor is important for your continued health. Please visit [email or web address] and search for a Primary Care provider near your address. Many offer online scheduling to help connect you to a provider. Please confirm any appointment with the office. You may also call [phone], or , choose option 1 and speak to our food service representative to schedule with a provider. [facility] ([facility]) - the providers at this clinic will also be able to help you connect to a new Primary Care Provider. [address] [place] [address], [id number] Thursday through Thursday 9am to 7pm * Attachments The following attachments cannot be sent through Care Everywhere. * Headache (Wallisian) * Abdominal Pain (Wallisian) * Hyperglycemia: General Info (Wallisian) documented in [facility]* Attachments The following attachments cannot be sent through Care Everywhere. * Flank Pain (Wallisian) * Pyelonephritis (Wallisian) [facility] Work Phone: Hospital Discharge instructions* Attachments The following attachments cannot be sent through Care Everywhere. * URI (Upper Respiratory Infection) (Wallisian) [facility]* Attachments The following attachments cannot be sent through Care Everywhere. * UTI (Urinary Tract Infection): Female (Wallisian) * Flank Pain (Wallisian) documented in this [facility] Work Phone: Hospital Discharge instructions* Attachments The following attachments cannot be sent through Care Everywhere. * Flank Pain (Wallisian) * Pyelonephritis (Wallisian) documented in this [facility] [employer] Phone: Hospital Discharge instructions* Attachments The following attachments cannot be sent through Care Everywhere. * Flank Pain (Wallisian) documented in this [facility] Phone: Hospital Discharge instructions* Attachments The following attachments cannot be sent through Care Everywhere. * Abdominal Pain (Wallisian) [facility] Additional Instructions Take Naprosyn as prescribed for mild to moderate pain. Take [place] Joseph as prescribed for severe pain. Take Zofran as prescribed for nausea and vomiting. Increase your intake of fluids.[facility] Work Phone: Hospital Discharge instructions No data available for this section [facility] Additional Instructions Follow-up with your primary care doctor Return to ED if develop worsening symptoms or concernsUniversity [facility]als [facility] Work Phone: Hospital Discharge instructions Additional Instructions Follow-up with your regular doctor tomorrow Call the urologist tomorrow for an earlier follow-up if possible Return for worsening symptoms or concernsUniversity Hospitals [facility] Center Work Phone: Hospital Discharge instructions* Attachments The following attachments cannot be sent through Care Everywhere. * Flank Pain (Wallisian) * Nausea and Vomiting (Wallisian) [facility] Work [facility]: [facility] Discharge [facility]* Attachments The following attachments cannot be sent through Care Everywhere. * Flank Pain (Wallisian) [facility] Work Phone: Hospital Discharge instructions Additional Instructions Take Metamucil daily as prescribed for constipation and Colace and MiraLAX as needed for constipation not relieved with these measures. Take simethicone as prescribed for your abdominal pain. Take Phenergan as prescribed for nausea vomiting.[facility] Work Phone: Hospital Discharge instructions* Attachments The following attachments cannot be sent through Care Everywhere. * Hematuria (Wallisian) * Flank Pain (Wallisian) [facility] Work Phone: Hospital Discharge instructions Additional Instructions Follow-up with urologist listed below regarding your hematuria with no obstructive uropathy. Take Levaquin as prescribed for your UTI. Take Naprosyn as prescribed for pain. Take Zofran as prescribed for nauseaUniversity Hospitals [facility] Center Work Phone: Hospital Discharge instructions* Attachments The following attachments cannot be sent through Care Everywhere. * Abdominal Pain (Wallisian) [facility] [facility] Work Phone: Hospital Discharge instructions Additional Instructions Ice to injured areas May take the 1 oxycodone every 6 hours for pain Continue regular medication Use the arm sling as needed for shoulder pain You may be more sore tomorrow however with severe chest pain abdominal pain back pain headache vomiting return to the ER Follow-up with your orthopedic surgeon regarding the right shoulder Follow-up with family doctor Return to the ER for more severe pain additional injuries or any other concerns [facility] Work Phone: Hospital Discharge instructions Additional Instructions Regular Diet No Activity Restrictions CT abdomen pelvis did demonstrate right nephrolithiasis no hydroureter started on Flomax x7 days, follow-up with primary care physician.[facility] Work Phone: Hospital Discharge instructions Additional Instructions Diabetic Diet No Activity [facility] Work Phone: Hospital Discharge instructions Additional Instructions Regular Diet No Activity [facility] Work Phone: Hospital Discharge instructions Additional Instructions Important Contact Information You can call [facility] at [phone] any time day or night if you have emergent questions or question regarding discharge instructions. If at any time you are feeling an increase in your psychiatric symptoms, call your physician or behavioral healthcare provider. If any time you have thoughts of harming yourself or others contact one of the following: Call 8 (available 19/01) Crisis Text Line (available 19/01) text 4HOPE to [phone] [facility] Hope Line (available 8 a.m. Midnight) call [phone] ([phone]) [facility] Work Phone: Progress note No data available for this section [facility] Author Braulio argueta [facility] January 30, 2023 6:58am Note Date/Time January 30, 2023 6:5 5am [facility] [address] [place] [address] Psychiatry Progress Note Signed Patient: Gisel Carlton MR#: [id number] : 1975 Acct:[id number] Age/Sex: 47 / F Adm Date: 3 Loc: Room: [address] [place] [address] Type : ADM IN Attending Dr: Yves Dukes MD Copies to: ~ Date of Service: 01/30/2023 Subjective Subjective Narrative: Gisel presented as anxious and sad. She reports a longstanding history of depression manifested as 5 recent hospitalizations (since November, the most recent being 2 weeks ago) for depression and suicidal ideation. She reports that her depression is constant. She is still struggling with depression and feels lonely. She said her body wants to cry but the medicine won't let her. She tolerated Effexor and denied any side effects. She reports reduction of her SI since her admission. She said her SI typically increases when she is out. She wants to apply for jobs when discharged. Mental status: Grossly normal Mood: Tearful and sad Affect: Sad, stressed Speech and movement: Normal Attitude: Cooperative, engaged Thought process: Normal Thought content: +ve for intermittent Suicidal thoughts, hopelessness and deniedAVH or paranoid Insight: Intact Judgment: Intact Exam Physical Exam Vital Signs: Temp Pulse Resp BP Pulse Ox O2 Del Method 97.7 F 95 H 18 102/70 96 Room Air 01/29/23 20:00 01/29/23 20:00 01/29/23 20:00 01/29/23 20:00 01/29/23 20:00 01/29/23 20:00 Assessment/Plan Assessment/Plan (1) Suicidal ideation: Code(s): R45.851 - Suicidal ideations Status: Acute (2) Major depressive disorder, recurrent: Code(s): F33.9 - Major depressive disorder, recurrent, unspecified Status: Acute Plan Patient reports feeling depressed and has intermittent SI. Increase Effexor to 75 mg PO Q daily help with depression Monitor suicidal behaviors for safety of self (15-minute face check). Recommend attending groups and psychoeducation for building coping skills. Risks, benefits and indications of medications were discussed with the patient. The patient verbalized understanding. No abnormal movements noted on exam. AIMS is Zero. Involve friends/family members to coordinate care and ensure appropriate outpatient appointments are scheduled prior to discharge. Documented By: Braulio Dukes MD 3 0655 Signed By: <Electronically signed by Braulio Dukes MD> 01/30/23 0658 [facility] Work Phone: Progress note Author Maxim Pinto [facility] January 31, 2023 12:16pm Note Date/Time January 31, 2023 12: 16pm [facility] [address] [place] [address] Psychiatry Progress Note Signed Patient: Gisel Carlton MR#: [id number] : 1975 Acct:[id number] Age/Sex: 47 / F Adm Date: 3 Loc: Room: [address] [place] [address] Type : ADM IN Attending Dr: Yves Dukes MD Copies to: ~ Date of Service: 01/31/2023 Subjective Subjective Narrative: Gisel reported that she is doing okay. She stated that she was switched to Effexor. She reported that she has been still experiencing some depression and anxiety. A lot of her issues are related to social stressors. She reported that she slept well overnight and appetite has been improving. She still reported some vague suicidality. Mental Status Exam: Appearance: grossly normal Mental Status: mental status grossly normal Mood: Depressed mood Affect: Dysphoric and anxious Speech and Movement: speech and movement normal and speech clear Attitude: cooperative Thought Process: normal Thought Content: Denied hallucinations, no homicidality, reported vague suicidality Insight: fair Judgment: fair Exam Physical Exam Vital Signs: Temp Pulse Resp BP Pulse Ox O2 Del Method 97.6 F 89 16 151/93 H 93 L Room Air 01/31/23 07:30 01/31/23 07:30 01/31/23 07:30 01/31/23 07:30 01/31/23 07:30 01/31/23 07:30 Assessment/Plan Assessment/Plan (1) Suicidal ideation: Code(s): R45.851 - Suicidal ideations Status: Acute (2) Major depressive disorder, recurrent: Code(s): F33.9 - Major depressive disorder, recurrent, unspecified Status: Acute Plan Patient reporting some depression and suicidality Continue Effexor 75 mg at this time, continue Abilify 10 mg and trazodone 200 mgqHS Continue to monitor mental status Encourage group participation and medication compliance Risk benefits alternatives explained Documented By: Maxim Pinto MD 01/31/23 1214 Signed By: <Electronically signed by Maxim Pinto MD> 01/31/23 1216 [facility] Work Phone: Summary Purpose Family History Relationship Condition Age at Onset Recorded Date/T tiesha father Heart disease Unknown Relationship Condition Age at Onset Recorded Date/T tiesha father Heart disease Unknown Not Specified Parkinson's disease Unknown Not Specified Hypertension Unknown Advance Directives Documents on File Type Date Recorded Patient Workers' Compensation Mediator Expl anation Advance Directives and Living Will Power of Electric Meter Repairer Apprentice Latest Code Status on File Code Status Date Activated Date Inactivated Comments Full Code 02/12/2018 12:21 PM 02/12/2018 3:16 PM Full Code 12/27/2017 10:25 PM 12/30/2017 7:15 PM Full Code 03/10/2017 11:44 AM 03/12/2017 3:42 PM Full Code 01/08/2017 1:24 AM 01/09/2017 6:53 PM Documents on File Type Date Recorded Patient Workers' Compensation Mediator Expl anation Advance Directives and Living Will Power of Electric Meter Repairer Apprentice Latest Code Status on File Code Status Date Activated Date Inactivated Comments Full Code 02/12/2018 12:21 PM 02/12/2018 3:16 PM Full Code 12/27/2017 10:25 PM 12/30/2017 7:15 PM Full Code 03/10/2017 11:44 AM 03/12/2017 3:42 PM Full Code 01/08/2017 1:24 AM 01/09/2017 6:53 PM Latest Code Status on File Code Status Date Activated Date Inactivated Comments Full Code 04/18/2019 1:22 AM 04/22/2019 11:53 AM Full Code 02/12/2018 12:21 PM 02/12/2018 3:16 PM Documents on File Type Date Recorded Patient Workers' Compensation Mediator Expl anation ACP-Advance Directive ACP-Power of Electric Meter Repairer Apprentice Latest Code Status on File Code Status Date Activated Date Inactivated Comments Full Code 05/05/2020 1:39 PM Full Code 04/18/2019 1:22 AM 04/22/2019 11:53 AM Healthcare Agents on File Name Relationship Healthcare Agent Relationshi p Communication Esmer Carlton Spouse Primary Decision Maker Steven Wallace Parent Secondary Decision Maker Latest Code Status on File Code Status Date Activated Date Inactivated Comments Full Code 05/05/2020 1:39 PM 05/19/2020 12:48 AM Healthcare Agents on File Name Relationship Healthcare Agent Relationshi p Communication Esmer Carlton Spouse Primary Decision Maker Steven Wallace Parent Secondary Decision Maker Latest Code Status on File Code Status Date Activated Date Inactivated Comments Full Code 05/28/2020 2:20 AM Full Code 05/05/2020 1:39 PM 05/19/2020 12:48 AM Healthcare Agents on File Name Relationship Healthcare Agent Relationshi p Communication Esmer Carlton Spouse Primary Decision Maker Steven Wallace Parent Secondary Decision Maker Latest Code Status on File Code Status Date Activated Date Inactivated Comments Full Code 05/28/2020 2:20 AM 05/28/2020 3:40 PM Healthcare Agents on File Name Relationship Healthcare Agent Relationshi p Communication Esmer Carlton Spouse Primary Decision Maker Steven Wallace Parent Secondary Decision Maker Documents on File Type Date Recorded Patient Workers' Compensation Mediator Expl anation Advance Directives and Livin g Will 07/08/2020 7:59 PM Documents on File Type Date Recorded Patient Workers' Compensation Mediator Expl anation Advance Directives and Livin g Will 08/14/2020 9:20 PM Documents on File Type Date Recorded Patient Workers' Compensation Mediator Expl anation Advance Directives and Livin g Will 09/09/2020 9:46 PM Documents on File Type Date Recorded Patient Workers' Compensation Mediator Expl anation Advance Directives and Livin g Will 07/16/2020 6:33 PM Latest Code Status on File Code Status Date Activated Date Inactivated Comments Full Code 04/18/2019 1:22 AM Healthcare Agents on File Name Maribel Healthcare Agent Relationshi p Communication Esmer Carlton Spouse Primary Decision Maker Steven Wallace Parent Secondary Decision Maker Healthcare Agents on File Name Maribel Healthcare Agent Danilohi p Communication Esmer Carlton Spouse Primary Decision Maker Steven Wallace Parent Secondary Decision Maker Documents on File Type Date Recorded Patient Workers' Compensation Mediator Expl anation Advance Directives and Livin g Will 10/16/2020 7:55 PM Documents on File Type Date Recorded Patient Workers' Compensation Mediator Expl anation Advance Directives and Livin g Will 10/18/2020 7:58 PM Documents on File Type Date Recorded Patient Workers' Compensation Mediator Expl anation Advance Directive(s) 12/16/2018 4:39 AM Advance Directive(s) 03/25/2016 12:18 AM Healthcare Agents on File Name Maribel Healthcare Agent Danilohi p Communication Esmer Carlton Spouse Primary Decision Maker Steven Wallace Parent Secondary Decision Maker Documents on File Type Date Recorded Patient Workers' Compensation Mediator Expl anation Advance Directives and Livin g Will 02/01/2021 10:15 AM Latest Code Status on File Code Status Date Activated Date Inactivated Comments Full Code 02/01/2021 6:10 AM 02/02/2021 6:50 PM Full Code - Unverified 01/27/2021 2:36 PM 01/31/2021 7:00 PM Healthcare Agents on File Name Maribel Healthcare Agent Relationshi p Communication Esmer Carlton Primary Decision Maker Steven Wallace Parent Secondary Decision Maker Documents on File Type Date Recorded Patient Workers' Compensation Mediator Expl anation Advance Directives and Livin g Will 04/20/2021 3:35 AM Documents on File Type Date Recorded Patient Workers' Compensation Mediator Expl anation ACP-Advance Directive ACP-Power of Electric Meter Repairer Apprentice Latest Code Status on File Code Status Date Activated Date Inactivated Comments Full Code 05/28/2020 2:20 AM 05/28/2020 3:40 PM Full Code 05/05/2020 1:39 PM 05/19/2020 12:48 AM Full Code 04/18/2019 1:22 AM 04/22/2019 11:53 AM Full Code 02/12/2018 12:21 PM 02/12/2018 3:16 PM Healthcare Agents on File Name Relationship Healthcare Agent Relationshi p Communication Steven Wallace Parent Secondary Decision Maker Latest Code Status on File Code Status Date Activated Date Inactivated Comments Full Code 12/04/2021 4:20 AM 12/06/2021 4:03 PM Full Code 02/01/2021 6:10 AM 02/02/2021 6:50 PM Advance Directive Response Recorded Date/ Time Advance Directives No July 13, 2017 2:06pm Advance Directive Response Recorded Date/ Time Advance Directives No July 13, 2017 1:06pm Healthcare Agents on File Name Relationship Healthcare Agent Relationshi p Communication Steven Wallace Parent Secondary Decision Maker Healthcare Agents on File Name Relationship Healthcare Agent Relationshi p Communication Steven Wallace Parent Secondary Decision Maker Healthcare Agents on File Name Relationship Healthcare Agent Relationshi p Communication Steven Wallace Parent Secondary Decision Maker Healthcare Agents on File Name Relationship Healthcare Agent Relationshi p Communication Steven Wallace Parent Secondary Decision Maker Healthcare Agents on File Name Relationship Healthcare Agent Relationshi p Communication Steven Wallace Parent Secondary Decision Maker Healthcare Agents on File Name Relationship Healthcare Agent Relationshi p Communication Steven Wallace Parent Secondary Decision Maker Latest Code Status on File Code Status Date Activated Date Inactivated Comments Full Code 06/30/2023 7:37 AM Code Status History Code Status Date Activated Date Inactivated Comments Full Code 05/28/2020 2:20 AM 05/28/2020 3:40 PM Full Code 05/05/2020 1:39 PM 05/19/2020 12:48 AM Full Code 04/18/2019 1:22 AM 04/22/2019 11:53 AM Full Code 02/12/2018 12:21 PM 02/12/2018 3:16 PM Healthcare Agents on File Name Relationship Healthcare Agent Relationshi p Communication Steven Wallace Parent Secondary Decision Maker Latest Code Status on File Code Status Date Activated Date Inactivated Comments Full Code 06/30/2023 7:37 AM 07/01/2023 6:10 PM Code Status History Code Status Date Activated Date Inactivated Comments Full Code 05/28/2020 2:20 AM 05/28/2020 3:40 PM Full Code 05/05/2020 1:39 PM 05/19/2020 12:48 AM Full Code 04/18/2019 1:22 AM 04/22/2019 11:53 AM Full Code 02/12/2018 12:21 PM 02/12/2018 3:16 PM Healthcare Agents on File Name Relationship Healthcare Agent Relationshi p Communication Steven Wallace Parent Secondary Decision Maker Reason for Referral Status Reason Specialty Diagnoses / Procedures Referre d By Contact Referred To Contact Closed Radiology Diagnoses Recurrent sinus infections Procedures CT SINUS WO CONTRAST Skye Jones, CERTIFIED PROSTHETIST VICE PRESIDENT - DIRECTOR OF PHOTOGRAPHY [address] [place] [address] [place] [address] Status Reason Specialty Diagnoses / Procedures Referred By Contact Referred To Contact New Request Urology Diagnoses Urinary tract infection with hematuria, site unspecified Jose Muller MD [address] [place] [address] Specialty Diagnoses / Procedures Referred By Contledy t Referred To Contact Radiology Diagnoses Cervical radiculopathy Cervical spondylosis without myelopathy Procedures MRI CERVICAL SPINE WO CONTRAST Delphine Freeman, CERTIFIED PROSTHETIST VICE PRESIDENT - DIRECTOR OF PHOTOGRAPHY [address] [facility] [address] [place] [address] Referral ID Status Reason Start Date Expiration Date Visits Re quested Visits Authorized [id number] Closed 10/31/2021 12/30/2021 1 1 Specialty Diagnoses / Procedures Referred By Nisha t Referred To Contact Radiology Diagnoses Pain Procedures Fluoro For Surgical Procedures Ruben Abdi MD [address] [facility] [address] [place] [id number] Referral ID Status Reason Start Date Expiration Date Visits Re quested Visits Authorized [id number] Open 06/30/2023 06/29/2024 1 1 Assessments Diagnosis Recurrent sinus infections Unspecified sinusitis (chronic) Diagnosis Acute cystitis without hematuria- Primary Acute cystitis Flank pain Abdominal pain, unspecified site Diagnosis Acute UTI- Primary Urinary tract infection, site not specified Diagnosis Flank pain- Primary Abdominal pain, unspecified site Opioid withdrawal (HCC) Drug withdrawal Diagnosis Left flank pain- Primary Abdominal pain, unspecified site Acute cystitis without hematuria Acute cystitis Diagnosis Left flank pain Abdominal pain, unspecified site Diagnosis Acute UTI Urinary tract infection, site not specified Right flank pain Abdominal pain, unspecified site Diagnosis Bilious vomiting with nausea Right lower quadrant abdominal pain Abdominal pain, right lower quadrant Diagnosis Acute pain of right shoulder Diagnosis Flank pain Abdominal pain, unspecified site Diagnosis COVID-19 Acute cystitis with hematuria Acute cystitis Diagnosis COVID-19 Diarrhea, unspecified type Hyperglycemia Other abnormal glucose Diagnosis Pneumonia due to COVID-19 virus Anterior pleuritic pain in patient with COVID-19 Painful respiration COVID-19 virus infection Costochondritis, acute Tietze's disease Anterior chest wall pain due to excessive coughing, and patient was COVID-19 positive, symptomatic. Painful respiration Acute exacerbation of chronic generalized pain associated with significant psychosocial dysfunction Chronic pain syndrome Uncontrolled type 2 diabetes mellitus with complication, with long-term current use of insulin (HCC) Uncontrolled type 2 diabetes mellitus with hyperglycemia (HCC) Diabetic polyneuropathy (HCC) Type II or unspecified type diabetes mellitus with neurological manifestations, not stated as uncontrolled Headache GERD (gastroesophageal reflux disease) Esophageal reflux Chest pain Chest pain, unspecified Flank pain Abdominal pain, unspecified site Chronic lower back pain Lumbago Chronic abdominal pain Abdominal pain, unspecified site Opiate use Opioid abuse, unspecified Generalized muscle ache Mylagia and myositis, unspecified Fatigue due to exposure Diagnosis Anxiety state Anxiety state, unspecified Dyspnea, unspecified type Diagnosis Lactic acidosis Acidosis Pneumonia due to COVID-19 virus Hyperglycemia Other abnormal glucose Right flank pain Abdominal pain, unspecified site Hypoxia Hypoxemia Tachycardia Tachycardia, unspecified COVID-19 Postviral syndrome Other malaise and fatigue Diagnosis Acute cystitis without hematuria- Primary Acute cystitis Left flank pain Abdominal pain, unspecified site Diagnosis Acute UTI- Primary Urinary tract infection, site not specified Acute pyelonephritis Acute pyelonephritis without lesion of renal medullary necrosis Diagnosis Flank pain- Primary Abdominal pain, unspecified site Diagnosis Generalized abdominal pain- Primary Abdominal pain, generalized Acute UTI Urinary tract infection, site not specified Diagnosis Abnormal liver CT Nonspecific abnormal results of liver function study Diagnosis Nausea and vomiting, intractability of vomiting not specified, unspecified vomiting type Flank pain Abdominal pain, unspecified site Diagnosis Right flank pain Abdominal pain, unspecified site Tachycardia Tachycardia, unspecified Diagnosis Hematuria due to chronic cystitis- Primary Diagnosis Right flank pain- Primary Abdominal pain, unspecified site Acute cystitis with hematuria Diagnosis Urinary tract infection associated with catheterization of urinary tract, unspecified indwelling urinary catheter type, subsequent encounter- Primary Hyperlipidemia, unspecified hyperlipidemia type UTI (urinary tract infection) Urinary tract infection, site not specified Diabetic polyneuropathy (HCC) Type II or unspecified type diabetes mellitus with neurological manifestations, not stated as uncontrolled Acute exacerbation of Chronic right flank pain Abdominal pain, unspecified site Muscular pain in the flank region Mylagia and myositis, unspecified Diagnosis Urinary tract infection with hematuria, site unspecified- Primary Diagnosis Right upper quadrant abdominal pain- Primary Abdominal pain, right upper quadrant Right flank pain Abdominal pain, unspecified site Diagnosis Right flank pain Abdominal pain, unspecified site Non-intractable vomiting with nausea, unspecified vomiting type Diagnosis Acute cystitis with hematuria- Primary Acute cystitis Discharge Instructions * Attachments The following attachments cannot be sent through Care Everywhere. * UTI (Urinary Tract Infection): Female (Wallisian) * Flank Pain (Wallisian) documented in this encounter* Attachments The following attachments cannot be sent through Care Everywhere. * UTI (Urinary Tract Infection): Female (Wallisian) documented in this encounter* Discharge Instr - HOME* Raj Moura, PEE - DIRECTOR OF PHOTOGRAPHY - 04/26/2019 2:06 PM EDT Continuity of Care Form Patient Name: Gisel Carlton : 1975 Admit date: 04/26/2019 Discharge date: Code Status Order: Prior Advance Directives: Admitting Physician: No admitting provider for patient encounter. PCP: Skye Jones, PEE - JOLYNN Discharging Nurse: Discharging Hospital Unit/Room#: Discharging Unit Phone Number: Emergency Contact: Extended Emergency Contact Information Primary Emergency Contact: Esmer Carlton Address: [address] [place], [place] [id number] [facility] Relation: Spouse Past Surgical History: Past Surgical History: Procedure Laterality Date CARPAL TUNNEL RELEASE 2006 B/L CHOLECYSTECTOMY [address] riley LEG SURGERY Right for fracture repair LITHOTRIPSY REPAIR UMBILICAL BEAU,<5Y/O,REDUC N/A 02/12/2018 REPAIR [place]MBILICAL [place]ERN[place] [facility] [place]INAL ENDOSCOPY 02/17/2017 Judi JONES JR DO URETER STENT PLACEMENT 3 Immunization History: There is no immunization history on file for this patient. Active Problems: Patient Active Problem List Diagnosis Code Headache R51 Uncontrolled type 2 diabetes mellitus with complication, with long-term current use of insulin (HCC) E11.8, E11.65, Z79.4 Hyperlipidemia E78.5 GERD (gastroesophageal reflux disease) K21.9 Recurrent kidney stones N20.0 Chest pain R07.9 Steatosis of liver K76.0 Hypertension I10 Adiposity E66.9 Tubular adenoma D36.9 Flank pain R10.9 Torticollis M43.6 Diabetic polyneuropathy (HCC) E11.42 Chronic abdominal pain R10.9, G89.29 Chronic lower back pain M54.5, G89.29 Opiate use F11.90 Umbilical hernia without obstruction and without gangrene K42.9 Acquired absence of other specified parts of digestive tract Z90.49 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) Z79.4 Pure hypercholesterolemia, unspecified E78.00 Acute hyperglycemia R73.9 Recurrent sinusitis J32.9 UTI (urinary tract infection) N39.0 Acute exacerbation of Chronic right flank pain R10.9, G89.29 Muscular pain in the flank region M79.10 Isolation/Infection: Isolation No Isolation Nurse Assessment: Last Vital Signs: BP 138/83 Pulse 116 Temp 98.6 F (37 C) (Oral) Resp 20 Ht 5' 7 (1.702 m) Wt 262 lb (118.8 kg) SpO2 97% BMI 41.04 kg/m Last documented pain score (0-10 scale): Pain Level: 10 Last Weight: Wt Readings from Last 1 Encounters: 04/26/19 262 lb (118.8 kg) Mental Status: {IP PT MENTAL STATUS:91900} IV Access: { HOME IV ACCESS:829201746} Nursing Mobility/ADLs: Walking {CHP DME ADLs:829623352} Transfer {CHP DME ADLs:217240800} Bathing {CHP DME ADLs:731969240} Dressing {CHP DME ADLs:016635694} Toileting {CHP DME ADLs:629751178} Feeding {CHP DME ADLs:383379431} Sales Account Specialist {CHP DME ADLs:109399269} Med Delivery { HOME MED Delivery:468891259} Wound Care Documentation and Therapy: Elimination: Continence: Bowel: {YES / NO:} Bladder: {YES / NO:} Urinary Catheter: {Urinary Catheter:902150956} Colostomy/Ileostomy/Ileal Conduit: {YES / NO:} Date of Last BM: No intake or output data in the 24 hours ending 04/26/191626 No intake/output data recorded. Safety Concerns: { HOME Safety Concerns:052269835} Impairments/Disabilities: { HOME Impairments/Disabilities:604607195} Nutrition Therapy: Current Nutrition Therapy: { HOME Diet List:106970713} Routes of Feeding: {P DME Other Feedings:733327116} Liquids: {Culvert Installer liquid thickness:86989} Daily Fluid Restriction: {CHP DME Yes amt example:910238416} Last Modified Barium Swallow with Video (Video Swallowing Test): {Done Not Done Date:} Treatments at the Time of Hospital Discharge: Respiratory Treatments: Oxygen Therapy: {Therapy; copd oxygen:89457} Ventilator: { CC Vent List:846036486} Rehab Therapies: {THERAPEUTIC INTERVENTION:8567385443} Weight Bearing Status/Restrictions: { CC Weight Bearin} Other Medical Equipment (for information only, NOT a DME order): {EQUIPMENT:069019972} Other Treatments: Patient's personal belongings (please select all that are sent with patient): {CHP DME Belongings:242364994} RN SIGNATURE: {Esignature:274473409} CASE MANAGEMENT/SOCIAL WORK SECTION Inpatient Status Date: Readmission Risk Assessment Score: Readmission Risk Risk of Unplanned Readmission: 0 Discharging to Facility/ Agency Name: Address: Phone: Fax: Dialysis Facility (if applicable) Name: Address: Dialysis Schedule: Phone: Fax: Director Talent/Upkeep Mechanic signature: {Esignature:710970597} PHYSICIAN SECTION Prognosis: {Prognosis:4189497437} Condition at Discharge: { Patient Condition:367671796} Rehab Potential (if transferring to Rehab): {Prognosis:2482635592} Recommended Labs or Other Treatments After Discharge: Physician Certification: I certify the above information and transfer of Gisel Carlton is necessary for the continuing treatment of the diagnosis listed and that she requires {Admit to Appropriate Level of Care:13790} for {GREATER/LESS:910472857} 30 days. Update Admission H&P: {P DME Changes in HandP:035085229} PHYSICIAN SIGNATURE: {Esignature:169746789} * Additional Instructions* Raj Moura APRN - CNP - 04/26/2019 Return to the Emergency Department for any new or concerning symptoms, changes in your current symptoms, fever, or if you feel you are worsening. * Attachments The following attachments cannot be sent through Care Everywhere. * Flank Pain (Wallisian) * Opioid Withdrawal (Wallisian) documented in this encounter* Instructions* Kasia Iqbal PA-C - 08/18/2019 You are leaving the Emergency Department Against Medical Advice Please follow up with your primary care provider in 1-2 days or return to the ED if symptoms worsen Please take antibiotic for urinary tract infection as prescribed * Attachments The following attachments cannot be sent through Care Everywhere. * UTI (Urinary Tract Infection): Female (Wallisian) * Flank Pain (Wallisian) documented in this encounter* Attachments The following attachments cannot be sent through Care Everywhere. * Flank Pain (Wallisian) documented in this encounter* Attachments The following attachments cannot be sent through Care Everywhere. * UTI (Urinary Tract Infection): Female (Wallisian) documented in this encounter* Attachments The following attachments cannot be sent through Care Everywhere. * Abdominal Pain (Wallisian) documented in this encounter* Attachments The following attachments cannot be sent through Care Everywhere. * Flank Pain (Wallisian) documented in this encounter* Instructions* Deja Hightower PA-C - 04/30/2020 You are positive for COVID please stay home and self isolate per CDC guidelines. Return to ER for new worsening or concerning symptoms. * Attachments The following attachments cannot be sent through Care Everywhere. * Coronavirus Disease (COVID-19): General Info (Wallisian) documented in this encounter* Instructions* Yanely Coyle DO - 05/01/2020 Immodium AD for diarrhea. Phenergan for nausea. Push fluids. Return if you are having trouble breathing. Do not smoke. Use inhaler as needed. * Attachments The following attachments cannot be sent through Care Everywhere. * Coronavirus Disease (COVID-19): Isolation (Wallisian) * Coronavirus Disease (COVID-19): General Info (Wallisian) documented in this encounter* Instructions* Gabriele Gabriel PA - 05/16/2020 Endocrinology-diabetes 1. Check your blood sugars 4 times a day, before meals and at night 2. Document these numbers and a blood glucose log and bring them with you to your follow-up appointment. 3. Do not take your mealtime insulin if your blood sugars less than 100 4. Call our office if you have blood sugars less than 80 or greater then 250 on two or more occasions 5. Call our office if you have any questions regarding your blood sugars or insulin dosing regiment 6. Signs of low blood sugar include sweating , heart racing, dizziness and weakness. Check your blood sugar if you have any of these symptoms. documented in this encounter* Attachments The following attachments cannot be sent through Care Everywhere. * SOB (Shortness of Breath) (Wallisian) documented in this encounter* Attachments The following attachments cannot be sent through Care Everywhere. * UTI (Urinary Tract Infection): Female (Wallisian) * Flank Pain (Wallisian) documented in this encounter* Instructions* Esmer Tamayo PA-C - 07/08/2020 MAKE ABSOLUTELY CERTAIN THAT YOU SEE YOUR PRIMARY CARE PHYSICIAN IN [place] TOMORROW SCHEDULED. YOU SHOULD ALSO CONTACT [facility] POINTS PRIMARY CARE TO REGISTER A PATIENT IF YOU ARE GOING TO BE MOVING TO [place] ON A PERMANENT BASIS. YOUR DOCTOR WILL ABSOLUTELY NEED TO CHECK THE CULTURE RESULTS WHICH WILL BE RELEASED THURSDAY MORNING TO MAKE CERTAIN THE KEFLEX IS EFFECTIVE AT TREATING YOURINFECTION. CONTINUE TO TAKE THE MACROBID UNTIL IT IS FINISHED. * Attachments The following attachments cannot be sent through Care Everywhere. * Pyelonephritis (Wallisian) * UTI (Urinary Tract Infection): Female (Wallisian) documented in this encounter* Attachments The following attachments cannot be sent through Care Everywhere. * Back Pain (Wallisian) documented in this encounter* Instructions* Esmer Tamayo PA-C - 08/14/2020 Below are two Primary Care Providers whose offices are in your area. They are currently accepting new patients. Please call one of them as soon as possible for a NEW PATIENT APPOINTMENT. It is important for you to have a physician who knows your history for good continuity of care. Ankit Anthony MD [address] [place] [id number] P: F: Meagan Burgess MD [address] [place] [address] P: F: * Attachments The following attachments cannot be sent through Care Everywhere. * UTI (Urinary Tract Infection): Female (Wallisian) * Abdominal Pain (Wallisian) documented in this encounter* Attachments The following attachments cannot be sent through Care Everywhere. * Flank Pain (Wallisian) * Nausea and Vomiting (Wallisian) documented in this encounter* Attachments The following attachments cannot be sent through Care Everywhere. * Flank Pain (Wallisian) * Rate-Control Medicines: General Info (Wallisian) documented in this encounter* Instructions* Lynnette Beth MD - 09/09/2020 Please continue taking antibiotics as prescribed. A review of your labs on prior visits shows that this bacteria and blood in your urine has been chronic for several months. You have been given a list of primary care providers in [facility] who are accepting new patients so you may establish care as soon as possible. * Attachments The following attachments cannot be sent through Care Everywhere. * UTI (Urinary Tract Infection): Female (Wallisian) * [place] ED PCP ACCEPTING NEW PATIENTS IN [facility] documented in this encounter* Instructions* Yulissa Saini PA-C - 07/16/2020 Please follow-up with your primary care doctor within 1 to 3 days. Continue Keflex as previously prescribed. Recommended a urology referral from here. If symptoms worsen or persist please present back to the ER. * Attachments The following attachments cannot be sent through Care Everywhere. * UTI (Urinary Tract Infection): Female (Wallisian) documented in this encounter* Attachments The following attachments cannot be sent through Care Everywhere. * Urinary Tract Infection (UTI) in Women ([facility]) (Wallisian) documented in this encounter* Attachments The following attachments cannot be sent through Care Everywhere. * Abdominal Pain (Wallisian) documented in this encounter* Instructions* Ezekiel Jeffers MD - 10/01/2020 Please take antibiotics as prescribed Return to the Emergency Department immediately if you develop worsening symptoms, or you have any other concerns. Please follow up with your family doctor in 1-2 days. * Attachments The following attachments cannot be sent through Care Everywhere. * Urinary Tract: Female: Anatomy Sketch (Wallisian) * UTI (Urinary Tract Infection): Female (Wallisian) documented in this encounter History of Present Illness * Linda Calle OTR/Yomaira - 08/08/2019 4:30 PM EST [] [facility] [place]: [address] [address] [place] [address] [] [facility]: [address] [place] [address] OCCUPATIONAL THERAPY EVALUATION Evaluation Date: 08/08/2019 Patient Name:Gisel Carlton Gender: female Date of : 1975 Referring Practitioner: Dr. De Leon Diagnosis: Right hand, wrist pain, trigger finger right middle digit Treating diagnosis: same Referral Date: 07/30/2019 Onset Date: Onset Date: 03/29/19 PMH: Patient Active Problem List Diagnosis Headache Uncontrolled type 2 diabetes mellitus with complication, with long-term current use of insulin (HCC) Hyperlipidemia GERD (gastroesophageal reflux disease) Recurrent kidney stones Chest pain Steatosis of liver Hypertension Adiposity Tubular adenoma Flank pain Torticollis Diabetic polyneuropathy (HCC) Chronic abdominal pain Chronic lower back pain Opiate use Umbilical hernia without obstruction and without gangrene Acquired absence of other specified parts of digestive tract 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) Pure hypercholesterolemia, unspecified Acute hyperglycemia Recurrent sinusitis Acute exacerbation of Chronic right flank pain Muscular pain in the flank region Past Medical History: Diagnosis Date Allergic rhinitis Dizziness Fatigue GERD (gastroesophageal reflux disease) Headache(784.0) Hematuria Hyperlipidemia Kidney stones Pap smear for cervical cancer screening 10/07 vag cuff Recurrent UTI Type A blood, Rh positive Type II or unspecified type diabetes mellitus without mention of complication, not stated as uncontrolled Past Surgical History: Procedure Laterality Date CARPAL TUNNEL RELEASE 2005 B/L CHOLECYSTECTOMY [address] riley LEG SURGERY Right for fracture repair LITHOTRIPSY REPAIR UMBILICAL BEAU,<5Y/O,REDUC N/A 02/12/2018 REPAIR UMBILICAL [place]ERNIA [place] [facility] [place]STRO[place]TESTINAL ENDOSCOPY 02/17/2017 D KAREN MORALEZ DO URETER STENT PLACEMENT 3 Medications: Current Outpatient Medications: tiZANidine (ZANAFLEX) 4 MG tablet, Take 4 mg by mouth every 6 hours as needed, Disp: , Rfl: tiZANidine (ZANAFLEX) 4 MG tablet, Take 1 tablet by mouth 3 times daily, Disp: 90 tablet, Rfl: 0 Insulin Degludec (TRESIBA FLEXTOUCH) 200 UNIT/ML SOPN, Inject 100 units into skin nightly, Disp: 18mL, Rfl: 2 celecoxib (CELEBREX) 200 MG capsule, Take 1 capsule by mouth daily, Disp: , Rfl: Insulin Pen Needle ([facility] [facility] UNICON[employer]ERS PENTIPS) 31G X 5 MM MISC, use daily as directed, Disp: 100 each, Rfl: 2 insulin lispro, 1 Unit Dial, (HUMALOG KWIKPEN) 100 UNIT/ML SOPN, Inject 40-45 units into the skin at each meal as directed., Disp: 45 mL, Rfl: 3 metFORMIN (GLUCOPHAGE) 500 MG tablet, TAKE 2 TABLETS BY MOUTH TWICE DAILY, Disp: 120 tablet, Rfl: 0 omeprazole (PRILOSEC) 20 MG delayed release capsule, TAKE 1 CAPSULE BY MOUTH DAILY, Disp: 30 capsule, Rfl: 5 ondansetron (ZOFRAN ODT) 4 MG disintegrating tablet, Take 1-2 tablets by mouth every 12 hours as needed for Nausea May Sub regular tablet (non-ODT) if insurance does not cover ODT., Disp: 12 tablet, Rfl: 0 ibuprofen (ADVIL;MOTRIN) 800 MG tablet, Take 1 tablet by mouth every 8 hours as needed for Pain, Disp: 20 tablet, Rfl: 0 rosuvastatin (CRESTOR) 20 MG tablet, TAKE 1 TABLET BY MOUTH EVERY DAY, Disp: 30 tablet, Rfl: 5 naproxen (NAPROSYN) 250 MG tablet, Take 1 tablet by mouth 3 times daily (with meals), Disp: 60 tablet, Rfl: 3 fluticasone (FLONASE) 50 MCG/ACT nasal spray, 1 spray by Each Nostril route daily, Disp: 1 Bottle, Rfl: 1 FREESTYLE LANCETS MISC, test 4 times daily as directed, Disp: 200 each, Rfl: 0 blood glucose monitor strips, Test 4 times a day & as needed for symptoms of irregular blood glucose., Disp: 200 strip, Rfl: 2 albuterol sulfate (PROAIR RESPICLICK) 108 (90 Base) MCG/ACT aerosol powder inhalation, Inhale 2 puffs into the lungs every 4 hours as needed for Wheezing or Shortness of Breath, Disp: 1 Inhaler, Rfl:5 guaiFENesin (MUCINEX) 600 MG extended release tablet, Take 2 tablets by mouth 2 times daily (Patient not taking: Reported on 07/19/2019), Disp: 60 tablet, Rfl: 3 blood glucose monitor kit and supplies, Test 4 times a day & as needed for symptoms of irregular blood glucose., Disp: 1 kit, Rfl: 0 ONETOUCH DELICA LANCETS 33G MISC, USE FOUR TIMES DAILY, Disp: 400 each, Rfl: 1 blood glucose monitor kit and supplies, 1 kit by Other route 4 times daily Test 4 times a day &as needed for symptoms of irregular blood glucose. PLEASE GIVE ONE TOUCH VERIO, Disp: 1 kit, Rfl: 0 ONE TOUCH LANCETS MISC, 1 each by Does not apply route 4 times daily Please provide lancets compatible with One Touch Verio, Disp: 400 each, Rfl: 0 acetaminophen (TYLENOL) 325 MG tablet, Take 2 tablets by mouth every 4 hours as needed for Pain or Fever, Disp: 120 tablet, Rfl: 3 Visits Allowed/Insurance/Certification Information: OT Visit Information Onset Date: 03/29/19 OT Insurance Information: [id number] Total # of Visits Approved: 12 Total # of Visits to Date: 1 Certification Period Expiration Date: 09/09/19 Progress Note Counter: 1 Restrictions/Precautions Other: Wear right wrist brace at work Wallisian primary language: yes SUBJECTIVE FINDINGS I have had pain all in my right UE, it is just progressively getting worse. Pain: Pain Location Description Initial Rating Current Rating Improved by Worsened by right shoulder sharp, stabby N/A 6/10 nothing activity R elbow and forearm constant achy N/A 3/10 rest activity, motion R wrist achy, throbbing N/A 4-5/10 rest using wrist and hand R middle digit throbbing constantly N/A 7/10 nothing using my hand Max pain at home during activities: 7-8/10 Lowest pain at home during activities/rest: 2-3/10 Action for pain: Patient reports pain is at acceptable level for treatment Prior Level of Functioning: Patient performing at independent level for ADL and IADL activities. and Comments: Pt. requires extra time due to pain and numbness. 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 Is this a work related injury: yes Is this a [facility] claim: yes Driving:yes History of Present Illness or Pain: Pt. presently having significant pain, numbness in right hand and UE. Frequent catching of right middle trigger finger into flexed position causing extreme pain. Patient goal for therapy: I want to be able to work and do stuff at home without pain and numbnessin my RUE.' OBSERVATION: mild forward head posture with rounded shoulders. OBJECTIVE FINDINGS Hand Dominance: right Upper Extremity Strength and Range of Motion Right Left MMT A P Norm A P MMT Shoulder Flexion 4+/5 WFL NT 0-180 WFL NT 5/5 Abduction 4/5 WFL NT 0-180 WFL NT 5/5 Internal Rotation 4/5 WFL NT 0-80 WFL NT 5/5 External Rotation 4/5 WFL NT 0-60 WFL NT 5/5 Elbow Flexion 4+/5 WFL NT 0-150 WFL NT 5/5 Extension 4+/5 WFL NT 150-0 WFL NT 5/5 Pronation 4+/5 WFL NT 0-80 WFL NT 5/5 Supination 4+/5 WFL NT 0-80 WFL NT 5/5 Wrist Flexion 4/5 WFL NT 0-70 WFL NT 5/5 Extension 4/5 WFL NT 0-60 WFL NT 5/5 Ulnar deviation 4/5 WFL NT 0-30 WFL NT 5/5 Radial Deviation 4/5 WFL NT 0-20 WFL NT 5/5 Comments: Hand Range of Motion Right Left Normal MP PIP DIP MP PIP DIP 0-90 0-100 0-70 0-90 0-100 0-70 A P A P A P A P A P A P Index Extension WFL NT WFL NT WFL NT WFL NT WFL NT WFL NT Flexion WFL NT WFL NT WFL NT WFL NT WFL NT WFL NT Middle Extension WFL NT WFL NT WFL NT WFL NT WFL NT WFL NT Flexion WFL NT WFL NT WFL NT WFL NT WFL NT WFL NT Ring Extension WFL NT WFL NT WFL NT WFL NT WFL NT WFL NT Flexion WFL NT WFL NT WFL NT WFL NT WFL NT WFL NT Little Extension WFL NT WFL NT WFL NT WFL NT WFL NT WFL NT Flexion WFL NT WFL NT WFL NT WFL NT WFL NT WFL NT Comments: Significant stiffness present in right hand with pt. report of pain with AROM. Right Left A P A P Thumb MP Flexion WFL NT WFL NT IP Flexion WFL NT WFL NT Radial Abduction WFL NT WFL NT Palmar Abduction WFL NT WFL NT Comments: Opposition Right Hand: WFL Left Hand: WFL Distance Thumb Tip from Head of 5th MC: measurements cm Right Hand: 1.6 CM Left Hand: 0 CM Edema Circumferential measurements cm or inches Right Left Distal Crease 22.1 20.5 Wrist (across styloid) 18.1 17.7 Metacarpal Phalangeal 21 20 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 & Pinch Strength 1 trial, setting 2 Right Norm Left Norm 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 (lb) 35 56 70 50 [place]akes Pinch (lb) 6 13 17 12 Lateral Pinch (lb) 10 13 15 12 Comments: Pain with testing RUE. Coordination & Dexterity Comments: WFL BUEs. Skin Integrity WFL BUEs Cognition: WFL Sensation: Impaired . Pt. has numbness and tingling digits 4 & 5 right hand at all times, occasionally ulnar side of palm. Constant pain in right middle digit. Joint Mobility WFL Palpation/Tenderness Pt. has significant painful knot at base of right 3rd digit and also at distal palmar crease of right 3rd digit. Pain on palpation and with digit extension. All fingers appear edematous right hand. Pain and tingling wakes pt. at night. Pt. reports having to take short rest breaks with repetitive data librarian. Education/Barriers to learning: Barriers:none Education on this date: OT role and POC ASSESSMENT Problems: [x] Decreased UE strength [] Decreased UE ROM [x] Decreased customer experience associate strength [] Decreased fine motor skills [x] Increased pain [x] Decreased ADL status [] Decreased joint mobility [] Decreased coordination [x] Decreased sensation [x] Other Complexity: [] Low Complexity: History: Brief history including review of medical records relating to the problem Exam: 1-3 performance Deficits Assistance/Modification: No assistance or modifications required to perform tasks. No comorbities affecting occupational performance [x] Medium Complexity: History: Expanded review of medical records and additional review of physical, cognitive, or psychosocial history related to current functional performance Exam: 3-5 performance deficits Assistance/Modification: Min/mod assistance or modifications required to perform tasks. May have comorbidities that affect occupational performance. [] High Complexity: History: Extensive review of medical records and additional review of physical, cognitive, or psychosocial history related to current functional performance. Exam: 5 or more performance deficits Assistance/Modification: Significant assistance or modifications required to perform tasks. Have comorbidities that affect occupational performance. Rehabilitation Potential: [] Excellent [x] Good [] Fair [] Poor PLAN OF CARE To see patient for 2 x/week for 12 visits for the following treatment interventions: [x] Evaluate & Treat [] Neuromuscular Re-education: [x] Re-evaluation [] Tissue (stress) Loading Program [x] Pain Management [x] PROM/Stretching/AAROM/AROM [x] Edema Management [x] Splinting [] Wound Care/Scar Management [] Desensitization [] ADL Training [x] Strengthening/Graded Therapeutic Activity [] Tendon Repair Program [] Coordination/Dexterity Training [x] Instruction/Application of energy [x] Manual Techniques conservation, work simplification [x] Instruction in HEP joint protection, body mechanics [] Aquatic Therapy [x] Modalities [x] Ultrasound [x] Infrared [] Hot/Cold Pack: [] Paraffin [] Other [] Electrical Stimulation [x] Fluidotherapy [x] D/C plan: Will assess pt after established visits to determine need for continued therapy. GOALS: LTG 1 : Pt will increase RUE strength from current by 1 muscle grade to increase performance with I/ADL's. LTG 2: Pt will increase right customer experience associate strength from current by 20 lbs to increase performance with I/ADL's. LTG 3 : Pt will increase right pinch strength from current by 3-4 lbs to increase performance with I/ADL's. LTG 4 : Pt will decrease fascial restrictions in right palm and forearm to decrease pain and increase ROM during functional activities. LTG 5 : Pt will be independent with donning orthotic device, maintenance, and schedule LTG 6 : Pt will report pain 3 or less during functional activities. LTG 7 : Pt will be IND with ECWS techniques. LTG 8 : Pt will improve RUE sensation and/or utilize compensatory techniques for safe completion ofself-care as projected. LTG 9: Pt will decrease edema in RUE to increase ROM and performance with I/ADL's. CHERYLE Gil 08/08/2019 5:09 PM Falls Risk Assessment Age: 0-59 = 0 60-69= 1 > 70= 2 History of Falls: 0 Falls last 6 mo = 0 1 fall Last 6 mo = 1 1-3 falls last 6 mo = 2 Medical History: Parkinsons, CVA,HTN, vertigo, >4 meds, use of assistive device (1pt.for each) Mental Status: A & O x 3 = 0 Disoriented to person, place, or time = 2 [x] INITIAL ASSESSMENT: Date: 08/08/2019 Age: 0 Falls: 0 PMH: 1 Mental: 0 Total: 1 *Patient 4 or younger: Vestibular: Signature: CHERYLE Gil High Risk for Falls: >8 Intermediate Risk for Falls: 4-8 Low Risk for Falls: <4 Low Risk: Monitor for changes, reassess every three months. Intermediate Risk: Supervision for most activities, direct contact with new activities or equipment, reassess monthly. High Risk: Stand by assitance at all times, reassess monthly. The following patient has been evaluated for occupational therapy services. For therapy to continue, insurance requires physician review of the treatment plan. Please review the attached evaluation and/or summary of the patient's plan of care, and verify that you agree therapy should continue by signing the attached document and sending it back to our office. Thank you for this referral. Physician signature Date documented in this encounter* Linda Calle OTR/Yomaira - 08/10/2019 4:30 PM EST Occupational Therapy Daily Note Name: Gisel Carlton : 1975 Diagnosis: Right hand, wrist pain, trigger finger right middle digit Visit Information: Onset Date: 03/29/19 OT Insurance Information: [id number] Total # of Visits Approved: 12 Certification Period Expiration Date: 09/09/19 Progress Note Counter: 2 Date: 08/10/2019 OT Manual therapy 15 minutes for 1 unit(s) OT Splint fit and training 10 minutes for 1 unit(s) OT Therapeutic activities 40 minutes for 2 unit(s) OT Individual Minutes Time In: 1600 Time Out: 1705 Referring Practitioner: Dr. De Leon Subjective: Pain in my shoulder all the way to my hand woke me up from my sleep last night. Pain rating: Pre-treatment pain: 6-7/10 entire RUE, wrist and hand. Pain after treatment: Focus of treatment was on the following: decreasing pain , edema management and posture/positioning Modality: fluidotherapy Parameters: While performing AROM and isolated joint flexion of each digit and wrist RUE. Manual: Deep forearm mobilization and palmar mobilization with gentle distraction at wrist RUE. Treatment Activity: Following fluidotherapy and mobilization of forearm, wrist and hand RUE, pt. performed isolated digit extension AROM while maintaining palm flat on surface. Pt. complained of significant pain right middle digit. Using red therasponge, pt. was able to press palm flat against sponge with minimal pain. Pt. reports 8/10 pain when palpating base of 3rd digit right hand. Tip to tip AROM with exaggerated finger extension performed without difficulty. Instructed pt. in and performedtotal RUE stretching HEP. Pt. was able to perform HEP independently. Fitted and adjusted pt.'s middle digit splint for comfort and easier application of splint. Assessment: Pt tolerated treatment fairly well with pain on palpation right palm. Pt. having significant pain complaints entire RUE with all motions. Pt. demonstrates good understanding of HEP. Plan: Continue POC Linda Calle OTR/L 08/10/2019 5:23 PM documented in this encounter* Linda Calle, OTR/L - 08/17/2019 1:00 PM EST Occupational Therapy Daily Note Name: Gisel Carlton : 1975 Diagnosis: Right hand, wrist pain, trigger finger right middle digit Visit Information: Onset Date: 03/29/19 OT Insurance Information: [id number] Total # of Visits Approved: 12 Total # of Visits to Date: 4 Certification Period Expiration Date: 09/09/19 Progress Note Counter: 4 Date: 08/17/2019 OT Manual therapy 20 minutes for 1 unit(s) OT Therapeutic activities 40 minutes for 3 unit(s) OT Individual Minutes Time In: 1301 Time Out: 1401 Referring Practitioner: Dr. De Leon Subjective: I have a lot of pain today. Pain rating: Pre-treatment pain: 8/10 R shoulder, 6/10 R wrist/forearm Pain after treatment: 8/10 R shoulder, 6/10 wrist and forearm Focus of treatment was on the following: decreasing pain , decreasing fascial restrictions, edema management and sensory Modality: fluidotherapy for 20 minutes RUE Treatment Activity: To increase soft tissue temperature and to decrease tissue restrictions pt. utilized fluidotherapy while performing R hand AROM ex. for 20 minutes. Followed with soft tissue mobilization of entire RUE and hand, pt. required cues to relax arm. To decrease trigger finger restrictions in middle digit pt. rolled a soft foam ball and a tennis ball at the table against R palm in alldirections. Using RUE pt. performed horizontal abduction/adduction, seated at table sliding a towel, 1 set x 10, without difficulty. Pt. was able to pinch standard clothespins and place them onto a vertical yard stick, pt. had slight pain and needed a rest break. Assessment: Pt tolerated treatment well. Pt. had pain throughout session and required frequent verbal cues to relax and not guard RUE. Plan: Continue POC 2x week. Goals: assistant terminal manager goals assistant terminal manager goal 1: Pt will be independent with donning orthotic device, maintenance, and schedule assistant terminal manager goal 2: Pt will report pain 3 or less during functional activities. assistant terminal manager goal 3: Pt will be IND with ECWS techniques jail goal 4: Pt will improve RUE sensation and/or utilize compensatory techniques for safe completion of self-care as projected. CHERYLE Gil 08/17/2019 2:10 PM documented in this encounter* Linda Calle OTR/L - 08/30/2019 8:00 AM EST Therapy Cancellation/No-show Note Date: 08/30/2019 Patient Name: Gisel Carlton : 1975 (44 y.o.) Canceled Appointment: 1 For today's appointment patient: [x] Cancelled [] Rescheduled appointment [] No-show [] Called pt to remind of next appointment Reason given by patient: [] Patient ill [] Conflicting appointment [] No transportation [] Conflict with work [] No reason given [x] Other: Pt. reports her job was eliminated and her claim has been denied. Pt. unsure of appeal status thus cancelled. [x] Pt has future appointments scheduled, no follow up needed [] Pt requests to be on hold. Reason: If > 2 weeks please discuss with therapist. [] Therapist to call pt for follow up Comments: Pt. to speak to nurse child support case officer and provider regarding further treatment. Pt. to call regarding future appts. Signature: documented in this encounter* Linda Calle OTR/L - 08/31/2019 1:00 PM EST Therapy Cancellation/No-show Note Date: 08/31/2019 Patient Name: Gisel Carlton : 1975 (44 y.o.) Canceled Appointment: 2 For today's appointment patient: [x] Cancelled [] Rescheduled appointment [] No-show [] Called pt to remind of next appointment Reason given by patient: [] Patient ill [] Conflicting appointment [] No transportation [] Conflict with work [] No reason given [x] Other: Pt. reports her job was eliminated and her claim has been denied. Pt. unsure of appeal status thus cancelled. [x] Pt has future appointments scheduled, no follow up needed [] Pt requests to be on hold. Reason: If > 2 weeks please discuss with therapist. [] Therapist to call pt for follow up Comments: Pt. to call regarding future appts. Signature: documented in this encounter* Gabriele Gabriel PA - 05/18/2020 1:42 PM EST Endocrinology Progress Note TELEHEALTH EVALUATION -- Audio/Visual (During COVID-19 public health emergency) Due to COVID 19 outbreak, patient's visit was converted to a virtual visit. Patient was contacted and agreed to proceed with a virtual visit via Telephone Visit total telephone visit time 12 minutes I was the provider at my office, the patient was on 5 [address] in isolation. The risks and benefits of converting to a virtual visit were discussed in light of the current infectious disease epidemic. Patient also understood that insurance coverage and co-pays are up to their individual insurance plans. Pursuant to the emergency declaration under the [place] Act and the National Emergencies Act, 1135waiver authority and the Coronavirus Preparedness and Response Supplemental Appropriations Act, this Virtual Visit was conducted, with patient's consent, to reduce this and other patient's risk of exposure to COVID-19 and provide continuity of care for an established patient. Gisel Carlton (: 1975) has requested an audio/video evaluation for the following concern(s): Assessment and Plan: Assessment- 1. Type 2 diabetes, poorly controlled 2. COVID 19 3. Hyperglycemia Plan- 1. Continue Lantus 80 units nightly 2. Continue Humalog 40 units before meals 3. Monitor glucose closely 4. Patient may be discharged home from endocrinology standpoint 5. Follow-up with me in 2 weeks POC Glucose: Recent Labs 05/17/20 1144 05/17/20 1636 05/17/20 2100 05/18/20 0829 05/18/20 1217 POCGLU 239* 203* 222* 170* 252* HGBA1C: Lab Results Component Value Date LABA1C 11.6 (H) 05/08/2020 LABA1C 11.5 (H) 05/06/2020 LABA1C 10.7 02/02/2020 CBC: Recent Labs 05/17/20 0737 05/18/20 1109 WBC 7.5 8.8 HGB 14.5 13.8 PLT 341 365 CMP: Recent Labs 05/16/20 0747 05/17/20 0737 05/18/20 1109 NA 138 135 139 K 4.6 4.3 4.0 CL 96 95 97 CO2 21 30 29 BUN 29* 26* 23* CREATININE 0.53 0.49* 0.61 GLUCOSE 228* 141* 270* CALCIUM 10.1* 9.3 9.5 LABGLOM >60.0 >60.0 >60.0 CC: Chief Complaint Patient presents with Shortness of Breath covid + Subjective: Interval History: Patient is a 44-year-old type 2 insulin-dependent diabetic female poorly controlled. She began having fevers, chills, myalgias, and cough approximately 10 days ago. Symptoms got progressively worse she called 911 was brought to the emergency room and admitted. She was severely hyperglycemic and started on insulin drip this was stopped in about 48 hours and she was restarted on her basal and bolus insulin dosing with improving glycemic control. Gisel states that she is feeling slightly better however she still having significant chest pain and shortness of breath. Called and spoke to the nurse taking care of Gisel. Plan is for discharge home today Review of systems: denies polyuria, polydipsia, ABD pain, flank pain, N/V/D, or diaphoresis Medications: Scheduled Meds: insulin lispro 40 Units Subcutaneous TID WC orphenadrine 100 mg Oral BID lidocaine 3 patch Transdermal Daily hydrOXYzine 25 mg Oral TID insulin glargine 80 Units Subcutaneous Nightly vitamin D 50,000 Units Oral Weekly vitamin C 500 mg Oral Daily zinc sulfate 50 mg Oral Daily furosemide 40 mg Oral Daily insulin lispro 0-18 Units Subcutaneous TID WC insulin lispro 0-9 Units Subcutaneous Nightly metFORMIN 500 mg Oral BID WC metoprolol tartrate 25 mg Oral BID pantoprazole 40 mg Oral QAM AC rosuvastatin 20 mg Oral Daily sodium chloride flush 10 mL Intravenous 2 times per day enoxaparin 30 mg Subcutaneous BID Continuous Infusions: dextrose dextrose 5 % and 0.45 % NaCl Stopped (05/07/20 1155) Objective: Vitals: BP 111/64 Pulse 96 Temp 97.5 F (36.4 C) (Oral) Resp 20 Ht 5' 7 (1.702 m) Wt 272 lb (123.4 kg) LMP (LMP Unknown) SpO2 91% BMI 42.60 kg/m Wt Readings from Last 3 Encounters: 05/15/20 272 lb (123.4 kg) 05/01/20 270 lb (122.5 kg) 04/30/20 270 lb (122.5 kg) Patient Active Problem List: Headache Uncontrolled type 2 diabetes mellitus with complication, with long-term current use of insulin (HCC) Hyperlipidemia GERD (gastroesophageal reflux disease) Recurrent kidney stones Chest pain Steatosis of liver Hypertension Adiposity Tubular adenoma Flank pain Torticollis Diabetic polyneuropathy (HCC) Chronic abdominal pain Chronic lower back pain Opiate use Umbilical hernia without obstruction and without gangrene Acquired absence of other specified parts of digestive tract 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) Pure hypercholesterolemia, unspecified Acute hyperglycemia Recurrent sinusitis Acute exacerbation of Chronic right flank pain Muscular pain in the flank region COVID-19 virus infection Uncontrolled type 2 diabetes mellitus with hyperglycemia (HCC) * Tamela Morales MD - 05/17/2020 9:47 PM EST PROGRESS NOTE -PAIN MANAGEMENT SERVICE DATE: 05/17/2020 SERVICE TIME: 9:47 PM CHIEFCOMPLAINT: Severe chest wall pain, generalized joint pain, severe anxiety, requesting IV pain medication to continue. SUBJECTIVE: Ms. Carlton is a 44 y.o. female [facility] complainingof generalized respiratory symptoms, positive Covid, receiving respiratory treatment and Covid treatment for the past 12 days. I was notified, and see the patient and she is requesting IV pain medication, still reporting a lotof chest pain however as I came and interviewed the patient she seem to be very anxious. She was given IV pain medication early on due to severe chest wall pain which discontinued, she is allergic to Toradol and I switch her to ibuprofen and have her on oral [facility] which she stated does not help the pain. She is also on muscle relaxant, and she is in Ambien for sleep and requesting something for anxiety. Patient states pain is persistent in the chest wall only relieved by Dilaudid !! PAIN ASSESSMENT: constant, waxing and waning aching, pulsating, sharp, shooting and stabbing pain is perceived as severe (6-8 pain scale) MEDICATIONS: Current Facility-Administered Medications Medication Dose Route Frequency Provider Last Rate Last Dose insulin lispro (HUMALOG) injection vial 40 Units 40 Units Subcutaneous TID MONIKA Jones 40 Units at 05/17/20 1640 ibuprofen (ADVIL;MOTRIN) tablet 600 mg 600 mg Oral Q6H PRN Tamela Morales MD 600 mg at 05/13/202122 HYDROcodone-acetaminophen (NORCO) 5-325 MG per tablet 1.5 tablet 1.5 tablet Oral Q4H PRN Tamela Morales MD 1.5 tablet at 05/17/20 1553 orphenadrine (NORFLEX) extended release tablet 100 mg 100 mg Oral BID Tamela Morales MD 100 mg at 05/17/202140 lidocaine 4 % external patch 3 patch 3 patch Transdermal Daily Tamela Morales MD 3 patch at 05/15/20 08 hydrOXYzine (VISTARIL) capsule 25 mg 25 mg Oral TID Tamela Morales MD 25 mg at 05/17/202140 insulin glargine (LANTUS) injection vial 80 Units 80 Units Subcutaneous Nightly Cruz Quan MD 80 Units at 05/16/202009 vitamin D (ERGOCALCIFEROL) capsule 50,000 Units 50,000 Units Oral Weekly Marcella Robins MD 50,000 Units at 05/17/20 0852 vitamin C (ASCORBIC ACID) tablet 500 mg 500 mg Oral Daily Marcella Robins MD 500 mg at 05/17/20 0852 zinc sulfate (ZINCATE) capsule 50 mg 50 mg Oral Daily Marcella Robins MD 50 mg at 05/17/20 0852 furosemide (LASIX) tablet 40 mg 40 mg Oral Daily Marcella Robins MD 40 mg at 05/17/20 0852 insulin lispro (HUMALOG) injection vial 0-18 Units 0-18 Units Subcutaneous TID Cruz Quan MD 6 Units at 05/17/20 1640 insulin lispro (HUMALOG) injection vial 0-9 Units 0-9 Units Subcutaneous Nightly Cruz Quan MD 6 Units at 05/16/202009 glucose (GLUTOSE) 40 % oral gel 15 g 15 g Oral PRN Kristi Craig, DO dextrose 50 % IV solution 12.5 g Intravenous PRN Kristi Craig, DO glucagon (rDNA) injection 1 mg 1 mg Intramuscular PRN Kristi Craig, DO dextrose 5 % solution 100 mL/hr Intravenous PRN Kristi Craig, DO albuterol sulfate HFA 108 (90 Base) MCG/ACT inhaler 2 puff 2 puff Inhalation Q4H PRN Kristi Craig DO 2 puff at 05/08/202027 benzonatate (TESSALON) capsule 100 mg 100 mg Oral TID PRN Kristi Craig DO 100 mg at 05/17/20 214 metFORMIN (GLUCOPHAGE) tablet 500 mg 500 mg Oral BID Kristi Craig, DO 500 mg at 05/17/20 1637 metoprolol tartrate (LOPRESSOR) tablet 25 mg 25 mg Oral BID Kristi Craig, DO 25 mg at 05/17/20 2142 pantoprazole (PROTONIX) tablet 40 mg 40 mg Oral QAM AC Kristi Craig, DO 40 mg at 05/17/20 0712 rosuvastatin (CRESTOR) tablet 20 mg 20 mg Oral Daily rKisti Craig, DO 20 mg at 05/17/20 0852 0.9 % sodium chloride bolus 30 mL Intravenous PRN Marcella Robins MD dextrose 5 % and 0.45 % sodium chloride infusion Intravenous Continuous PRN Beto Zuniga DO Stopped at 05/07/20 1155 sodium chloride flush 0.9 % injection 10 mL 10 mL Intravenous 2 times per day Kristi Rafa, DO 10 mLat 05/17/202138 sodium chloride flush 0.9 % injection 10 mL 10 mL Intravenous PRN Kristi Rafa, DO 10 mL at acetaminophen (TYLENOL) tablet 650 mg 650 mg Oral Q6H PRN [facility] Fernanda Morales MD 650 mg at 05/08/20 042 polyethylene glycol (GLYCOLAX) packet 17 g 17 g Oral Daily PRN Kristi Rafa, DO promethazine (PHENERGAN) tablet 12.5 mg 12.5 mg Oral Q6H PRN Kristi Rafa, DO 12.5 mg at 05/08/20427 Or ondansetron (ZOFRAN) injection 4 mg 4 mg Intravenous Q6H PRN Kristi Rafa, DO 4 mg at 05/16/202103 enoxaparin (LOVENOX) injection 30 mg 30 mg Subcutaneous BID Kristi Rafa, DO 30 mg at 05/17/202138 guaiFENesin-dextromethorphan (ROBITUSSIN DM) 100-10 MG/5ML syrup 5 mL 5 mL Oral Q4H PRN Kristi Rafa, DO 5 mL at 05/07/20 135 zolpidem (AMBIEN) tablet 5 mg 5 mg Oral Nightly PRN Kristi Rafa, DO 5 mg at 05/17/202142 ALLERGIES: Fentanyl; Pcn [penicillins]; Demerol; Morphine; Nubain [nalbuphine hcl]; Aspirin; Ciprofloxacin; and Ketorolac tromethamine Review of Systems Constitutional: Positive for activity change, appetite change and fatigue. Negative for chills, diaphoresis, fever and unexpected weight change. Eyes: Negative. Respiratory: Positive for chest tightness and shortness of breath. Negative for apnea, cough, choking, wheezing and stridor. Cardiovascular: Positive for leg swelling. Negative for chest pain and palpitations. Endocrine: Negative. Genitourinary: Negative. Musculoskeletal: Positive for arthralgias, back pain, myalgias and neck stiffness. Negative for gait problem, joint swelling and neck pain. Skin: Negative. Allergic/Immunologic: Negative. Neurological: Negative. Hematological: Negative. Psychiatric/Behavioral: Positive for agitation, behavioral problems, decreased concentration, dysphoric mood and sleep disturbance. Negative for confusion, hallucinations, self-injury and suicidal ideas. The patient is nervous/anxious. The patient is not hyperactive. OBJECTIVE PHYSICAL EXAM: BP (!) 144/111 Pulse 123 Temp 98 F (36.7 C) (Oral) Resp 20 Ht 5' 7 (1.702 m) Wt 272 lb (123.4 kg) LMP (LMP Unknown) SpO2 96% BMI 42.60 kg/m Body mass index is 42.6 kg/m . CONSTITUTIONAL: Patient is awake, alert, cooperative, appears to be in moderate distress and anxious however seems that she has some pain exaggeration behavior EYES: vision intact ENT: normocepalic, without obvious abnormality, atraumatic NECK: supple, symmetrical, trachea midline, skin normal and no stridor BACK: Limited to his range of motion, symmetric and no curvature LUNGS: Still increased work of breathing, tachypneic however she is able to maintain full sentencesusing oxygen, as interviewed the room she was playing on her phone CARDIOVASCULAR: tachycardic with regular rhythm ABDOMEN: Soft nontender nondistended MUSCULOSKELETAL: Mid chest wall tenderness, tenderness across the costosternal angles there is no redness, warmth, or swelling of the joints full range of motion noted motor strength is 5 out of 5 all extremities bilaterally tone is normal NEUROLOGIC: Neurologically stable SKIN: no bruising or bleeding DATA: tests reviewed for today's visit: All labs and imaging results reviewed. Lab Results Component Value Date WBC 7.5 05/17/2020 HGB 14.5 05/17/2020 HCT 45.8 05/17/2020 MCV 87.1 05/17/2020 PLT 341 05/17/2020 NA 135 05/17/2020 K 4.3 05/17/2020 K 3.6 05/07/2020 CL 95 05/17/2020 CO2 30 05/17/2020 BUN 26 05/17/2020 CREATININE 0.49 05/17/2020 CALCIUM 9.3 05/17/2020 PHOS 4.4 05/17/2020 ALKPHOS 62 05/11/2020 ALT 8 05/11/2020 AST 11 05/11/2020 BILITOT 0.4 05/11/2020 BILIDIR 0.0 11/09/2019 LABALBU 3.6 05/17/2020 LABALBU 4.7 04/05/2020 LABS Recent Labs 05/15/20 0803 05/16/20 0747 05/17/20 0737 WBC 11.7* 13.3* 7.5 RBC 5.05 4.96 5.26 HGB 14.0 14.2 14.5 HCT 41.8 41.9 45.8 MCV 82.7 84.5 87.1 MCH 27.7 28.6 27.6 MCHC 33.5 33.9 31.7* RDW 14.1 14.2 14.6* PLT 412* 443* 341 Recent Labs 05/15/20 0803 05/16/20 0747 05/17/20 0737 NA 131* 138 135 K 4.0 4.6 4.3 CL 90* 96 95 CO2 33* 21 30 BUN 25* 29* 26* CREATININE 0.52 0.53 0.49* GLUCOSE 213* 228* 141* CALCIUM 9.9 10.1* 9.3 Recent Labs 05/15/20 0803 05/16/20 0747 05/17/20 0737 MG 1.9 2.1 2.2 No results for input(s): LABAMPH, BARBSCNU, LABBENZ, CANSU, COCAIMETSCRU, OPIATESCREENURINE, OXYCODONEUR, DSCOMMENT in the last 72 hours. Invalid input(s): PHENCYCLIDINESCREENURINE.LABMETH.PROPOX Cta Chest W Wo (pe Study) Result Date: 05/05/2020 EXAM:CTA CHEST W WO CONTRAST DATE05/05/2020 11:06 AM: REASON FOR EXAM:Acute severe anterior chest wall pain. covid positive hypoxic COMPARISON: none Technique: Helical CT was performed through the chest following the IV administration of100 cc of nonionic contrast. 3-D MIP reconstructions were performed on an independent workstation in the coronal plane with thick slab technique utilized in the interpretation. 3-D maximum intensity projection performed. All CT scans at this facility use dose modulation, iterative reconstruction, and/or weight based dosing when appropriate to reduce radiation dose to as low as reasonably achievable. FINDINGS Mediastinum: Mediastinum and zohaib are normal. Thereare no pathologically enlarged lymph nodes. The chest wall and lower neck are normal Heart: The heart is within normal limits. There is no pericardial effusion. Vascular structures:There is no evidence for thoracic aortic aneurysm or dissection. No evidence of traumatic aortic injury. There is no evidence for pulmonary emboli. Lungs: There are patchy alveolar opacities scattered throughout all segments of both lungs. Pleura: No pleural effusion or thickening. Upper abdomen: The visualized portions of the upper abdomen are unremarkable. Bones/axillae/soft tissues: Osseous structures and chest wall are normal. There are patchy alveolar opacities scattered throughout all segments of both lungs indicating pneumonia which may represent viral, COVID-19 pneumonia versus other etiologies. . No evidence of thoracic aortic dissection or aneurysm. The study is negative for pulmonary emboli. Xr Chest Portable Result Date: 05/05/2020 Exam: XR CHEST PORTABLE History: cp Technique: AP portable view of the chest obtained. Comparison: None Findings: The cardiomediastinal silhouette is within normal limits. There are ill-defined patchy alveolar opacities in both lungs, left greater than right. Bones of the thorax appear intact. There are alveolar opacities which may represent early infiltrates, pneumonia. The differential includes COVID-19 pneumonia versus other etiologies Us Dup Lower Extremities Bilateral Venous Result Date: 05/06/2020 VENOUS DUPLEX ULTRASOUND OF THE BILATERAL LOWER EXTREMITY CLINICAL HISTORY: COVID, r/o dvt COMPARISON: NONE AVAILABLE TECHNIQUE: Sonographic imaging of the deep venous system of the bilateral lower extremities was performed by a registered apparel sales leader and the images were submitted for interpretation. FINDINGS: The common femoral, superficial femoral, and popliteal veins demonstrate normal color flow, augmentation, and compressibility. No venous duplex ultrasound evidence of DVT in the bilaterallower extremities. NO SONOGRAPHIC EVIDENCE OF DEEP VENOUS THROMBOSIS WITHIN THE BILATERAL LOWER EXTREMITIES. ASSESSMENT & PLAN Active Hospital Problems Diagnosis Date Noted Anterior chest wall pain due to excessive coughing, and patient was COVID-19 positive, symptomatic.[R07.89] 05/12/2020 Anterior pleuritic pain in patient with COVID-19 [R07.81] 05/12/2020 Costochondritis, acute [M94.0] 05/12/2020 Acute exacerbation of chronic generalized pain associated with significant psychosocial dysfunction[G89.4] 05/12/2020 Fatigue due to exposure [T73.2XXA] 05/12/2020 Uncontrolled type 2 diabetes mellitus with hyperglycemia (HCC) [E11.65] COVID-19 virus infection [U07.1] 05/05/2020 Generalized muscle ache [M79.10] 04/19/2019 Opiate use [F11.90] 12/30/2017 Diabetic polyneuropathy (HCC) [E11.42] 03/11/2017 Chronic lower back pain [M54.5, G89.29] 03/11/2017 Chronic abdominal pain [R10.9, G89.29] 03/11/2017 Flank pain [R10.9] 10/19/2014 Chest pain [R07.9] 11/21/2012 Uncontrolled type 2 diabetes mellitus with complication, with long-term current use of insulin (HCC) [E11.8, E11.65, Z79.4] 04/24/2011 Headache [R51.9] 04/24/2011 GERD (gastroesophageal reflux disease) [K21.9] 04/24/2011 44 years old female with other. Comorbidity as noted above was mainly diabetic, patient came with main diagnosis of COVID-19 positive, radiological finding on imaging suggestive persistence of her condition, followed by infectious disease and pulmonology. Patient has history of chronic abdominal pain, no acute organic cause identified due to several admissions. Patient has acute sternal musculoskeletal chest wall pain, generalized myalgia, she has been extubated with frequent coughing, underlying pleurisy and costochondritis. Reviewing the history even I am giving the patient the benefit of the doubt that she is having somemusculoskeletal myofascial pain in the chest wall region due to the reasons above however I cannot rule out she has some underlying moderate anxiety which could be due to her chronic condition also some underlying drug- seeking behavior. I have outlined treatment plan, we will discontinue all IV opioid, no further opioids to be received please I outlined outpatient prescription, discussed multimodal analgesia, I would agree about short-term [facility] for 5 days prescription for 15 tablets, Vistaril 25 mg for anxiety and symptomatic management,Norflex 1 mg for muscle relaxant, ibuprofen as an anti-inflammatory and Tylenol other supportive analgesics in addition also topical analgesia and other comfortable measure with icing versus heat andicy hot and other topical measures. RECOMMENDATION: SEE ORDERS Discontinue all IV opioid, please no further IV opioid to be prescribed Addressing her anxiety can be done as an outpatient by her PCP and referred to outpatient psychiatry, [facility] I outlined outpatient prescription, discussed multimodal analgesia, I would agree about short-term [facility] for 5 days prescription for 15 tablets, Vistaril 25 mg for anxiety and symptomatic management,Norflex 1 mg for muscle relaxant, ibuprofen as an anti-inflammatory and Tylenol other supportive analgesics in addition also topical analgesia and other comfortable measure with icing versus heat andicy hot and other topical measures. Medication reconciled for discharge planning, addressed all instructions, follow-up with PCP recommend no further opioids beyond the prescription given. Discussed risk-benefit alternative the prescribed medication the goal of treatment to provide some comfort while she is able to perform appropriate breathing to help her recovery and continue on incentive spirometry to maintain lung inflation. Copy to hospital coverage Dr. Titus Call and other caregivers SIGNATURE: Tamela Morales MD PATIENT NAME: Gisel Carlton DATE: May 17, 2020 TIME: 9:47 PM PAGER/CONTACT #: * Titus Call, - 05/17/2020 4:20 PM EST Department of Internal Medicine General Internal Medicine Attending Progress Note SUBJECTIVE: Pt seen and examined. Still very sob and worse with exertion. Still requiring IV pain medications OBJECTIVE Medications Current Facility-Administered Medications: insulin lispro (HUMALOG) injection vial 40 Units, 40 Units, Subcutaneous, TID WC HYDROmorphone (DILAUDID) injection 0.5 mg, 0.5 mg, Intravenous, Q4H PRN ibuprofen (ADVIL;MOTRIN) tablet 600 mg, 600 mg, Oral, Q6H PRN HYDROcodone-acetaminophen (NORCO) 5-325 MG per tablet 1.5 tablet, 1.5 tablet, Oral, Q4H PRN orphenadrine (NORFLEX) extended release tablet 100 mg, 100 mg, Oral, BID lidocaine 4 % external patch 3 patch, 3 patch, Transdermal, Daily hydrOXYzine (VISTARIL) capsule 25 mg, 25 mg, Oral, TID insulin glargine (LANTUS) injection vial 80 Units, 80 Units, Subcutaneous, Nightly vitamin D (ERGOCALCIFEROL) capsule 50,000 Units, 50,000 Units, Oral, Weekly vitamin C (ASCORBIC ACID) tablet 500 mg, 500 mg, Oral, Daily zinc sulfate (ZINCATE) capsule 50 mg, 50 mg, Oral, Daily furosemide (LASIX) tablet 40 mg, 40 mg, Oral, Daily insulin lispro (HUMALOG) injection vial 0-18 Units, 0-18 Units, Subcutaneous, TID WC insulin lispro (HUMALOG) injection vial 0-9 Units, 0-9 Units, Subcutaneous, Nightly glucose (GLUTOSE) 40 % oral gel 15 g, 15 g, Oral, PRN dextrose 50 % IV solution, 12.5 g, Intravenous, PRN glucagon (rDNA) injection 1 mg, 1 mg, Intramuscular, PRN dextrose 5 % solution, 100 mL/hr, Intravenous, PRN albuterol sulfate HFA 108 (90 Base) MCG/ACT inhaler 2 puff, 2 puff, Inhalation, Q4H PRN benzonatate (TESSALON) capsule 100 mg, 100 mg, Oral, TID PRN metFORMIN (GLUCOPHAGE) tablet 500 mg, 500 mg, Oral, BID WC metoprolol tartrate (LOPRESSOR) tablet 25 mg, 25 mg, Oral, BID pantoprazole (PROTONIX) tablet 40 mg, 40 mg, Oral, QAM AC rosuvastatin (CRESTOR) tablet 20 mg, 20 mg, Oral, Daily 0.9 % sodium chloride bolus, 30 mL, Intravenous, PRN dextrose 5 % and 0.45 % sodium chloride infusion, , Intravenous, Continuous PRN sodium chloride flush 0.9 % injection 10 mL, 10 mL, Intravenous, 2 times per day sodium chloride flush 0.9 % injection 10 mL, 10 mL, Intravenous, PRN acetaminophen (TYLENOL) tablet 650 mg, 650 mg, Oral, Q6H PRN OR [DISCONTINUED] acetaminophen (TYLENOL) suppository 650 mg, 650 mg, Rectal, Q6H PRN polyethylene glycol (GLYCOLAX) packet 17 g, 17 g, Oral, Daily PRN promethazine (PHENERGAN) tablet 12.5 mg, 12.5 mg, Oral, Q6H PRN OR ondansetron (ZOFRAN) injection 4 mg, 4 mg, Intravenous, Q6H PRN enoxaparin (LOVENOX) injection 30 mg, 30 mg, Subcutaneous, BID guaiFENesin-dextromethorphan (ROBITUSSIN DM) 100-10 MG/5ML syrup 5 mL, 5 mL, Oral, Q4H PRN zolpidem (AMBIEN) tablet 5 mg, 5 mg, Oral, Nightly PRN Physical VITALS: BP 136/79 Pulse 118 Temp 98 F (36.7 C) (Oral) Resp 20 Ht 5' 7 (1.702 m) Wt 272 lb (123.4 kg) LMP (LMP Unknown) SpO2 96% BMI 42.60 kg/m Constitutional: Awake and alert lying in bed comfortably Head: Normocephalic, atraumatic Eyes: EOMI, PERRLA ENT: moist mucous membranes Neck: neck supple, trachea midline Lungs: Good inspiratory effort, no wheeze, no rhonchi, no rales Heart: RRR, normal S1 and S2 GI: Soft, non-distended, non tender, no guarding, no rebound, +BS MSK: no edema noted Skin: warm, dry Psych: appropriate affect Data CBC: Lab Results Component Value Date WBC 7.5 05/17/2020 RBC 5.26 05/17/2020 RBC 4.95 08/26/2018 HGB 14.5 05/17/2020 HCT 45.8 05/17/2020 MCV 87.1 05/17/2020 MCH 27.6 05/17/2020 MCHC 31.7 05/17/2020 RDW 14.6 05/17/2020 PLT 341 05/17/2020 MPV 9.6 08/26/2018 CMP: Lab Results Component Value Date NA 135 05/17/2020 K 4.3 05/17/2020 K 3.6 05/07/2020 CL 95 05/17/2020 CO2 30 05/17/2020 BUN 26 05/17/2020 CREATININE 0.49 05/17/2020 GFRAA >60.0 05/17/2020 AGRATIO 1.3 10/15/2017 LABGLOM >60.0 05/17/2020 GLUCOSE 141 05/17/2020 GLUCOSE 240 04/30/2020 PROT 6.4 05/11/2020 LABALBU 3.6 05/17/2020 LABALBU 4.7 04/05/2020 CALCIUM 9.3 05/17/2020 BILITOT 0.4 05/11/2020 ALKPHOS 62 05/11/2020 AST 11 05/11/2020 ALT 8 05/11/2020 ASSESSMENT AND PLAN # Acute hypoxic respiratory failure - due to COVID19 pneumonia which will require home O2 - completed IV Remdesivir course - off decadron, continuing SC Lovenox, nasal cannula - s/p transfusion of convalescent plasma - slowly improving, down to 4 liters NC - management per ID and pulmonology # DM2 with hyperglycemia - likely worsened from steroid use - required Insulin infusion initially - improved, infusion stopped - on Lantus, premeal coverage, ISS - managed by endocrinology # Acute / chronic pain with opiate dependence - OARRS reviwed - has received multiple prescriptions of [facility] and percocet by multiple providers - on [facility], lidocaine patch, ibuprofen, norflex per pain management - discontinued dilaudid Disposition - Pt down to nasal cannula and will need home going O2 due to COVID pneumonia. PT/OT. Will need home going pain regimen by pain management. Plan for discharge tomorrow. Titus Call DO Internal Medicine * Titus Call DO - 05/16/2020 5:30 PM EST Department of Internal Medicine General Internal Medicine Attending Progress Note SUBJECTIVE: Pt seen and examined. Still very sob and worse with exertion. Still requiring IV pain medications OBJECTIVE Medications Current Facility-Administered Medications: insulin lispro (HUMALOG) injection vial 40 Units, 40 Units, Subcutaneous, TID WC HYDROmorphone (DILAUDID) injection 0.5 mg, 0.5 mg, Intravenous, Q4H PRN ibuprofen (ADVIL;MOTRIN) tablet 600 mg, 600 mg, Oral, Q6H PRN HYDROcodone-acetaminophen (NORCO) 5-325 MG per tablet 1.5 tablet, 1.5 tablet, Oral, Q4H PRN orphenadrine (NORFLEX) extended release tablet 100 mg, 100 mg, Oral, BID lidocaine 4 % external patch 3 patch, 3 patch, Transdermal, Daily hydrOXYzine (VISTARIL) capsule 25 mg, 25 mg, Oral, TID insulin glargine (LANTUS) injection vial 80 Units, 80 Units, Subcutaneous, Nightly vitamin D (ERGOCALCIFEROL) capsule 50,000 Units, 50,000 Units, Oral, Weekly vitamin C (ASCORBIC ACID) tablet 500 mg, 500 mg, Oral, Daily zinc sulfate (ZINCATE) capsule 50 mg, 50 mg, Oral, Daily furosemide (LASIX) tablet 40 mg, 40 mg, Oral, Daily insulin lispro (HUMALOG) injection vial 0-18 Units, 0-18 Units, Subcutaneous, TID WC insulin lispro (HUMALOG) injection vial 0-9 Units, 0-9 Units, Subcutaneous, Nightly glucose (GLUTOSE) 40 % oral gel 15 g, 15 g, Oral, PRN dextrose 50 % IV solution, 12.5 g, Intravenous, PRN glucagon (rDNA) injection 1 mg, 1 mg, Intramuscular, PRN dextrose 5 % solution, 100 mL/hr, Intravenous, PRN albuterol sulfate HFA 108 (90 Base) MCG/ACT inhaler 2 puff, 2 puff, Inhalation, Q4H PRN benzonatate (TESSALON) capsule 100 mg, 100 mg, Oral, TID PRN metFORMIN (GLUCOPHAGE) tablet 500 mg, 500 mg, Oral, BID WC metoprolol tartrate (LOPRESSOR) tablet 25 mg, 25 mg, Oral, BID pantoprazole (PROTONIX) tablet 40 mg, 40 mg, Oral, QAM AC rosuvastatin (CRESTOR) tablet 20 mg, 20 mg, Oral, Daily 0.9 % sodium chloride bolus, 30 mL, Intravenous, PRN dextrose 5 % and 0.45 % sodium chloride infusion, , Intravenous, Continuous PRN sodium chloride flush 0.9 % injection 10 mL, 10 mL, Intravenous, 2 times per day sodium chloride flush 0.9 % injection 10 mL, 10 mL, Intravenous, PRN acetaminophen (TYLENOL) tablet 650 mg, 650 mg, Oral, Q6H PRN OR [DISCONTINUED] acetaminophen (TYLENOL) suppository 650 mg, 650 mg, Rectal, Q6H PRN polyethylene glycol (GLYCOLAX) packet 17 g, 17 g, Oral, Daily PRN promethazine (PHENERGAN) tablet 12.5 mg, 12.5 mg, Oral, Q6H PRN OR ondansetron (ZOFRAN) injection 4 mg, 4 mg, Intravenous, Q6H PRN enoxaparin (LOVENOX) injection 30 mg, 30 mg, Subcutaneous, BID guaiFENesin-dextromethorphan (ROBITUSSIN DM) 100-10 MG/5ML syrup 5 mL, 5 mL, Oral, Q4H PRN zolpidem (AMBIEN) tablet 5 mg, 5 mg, Oral, Nightly PRN Physical VITALS: BP 129/64 Pulse 84 Temp 97.7 F (36.5 C) (Oral) Resp 18 Ht 5' 7 (1.702 m) Wt 272 lb (123.4 kg) LMP (LMP Unknown) SpO2 97% BMI 42.60 kg/m Constitutional: Awake and alert lying in bed comfortably Head: Normocephalic, atraumatic Eyes: EOMI, PERRLA ENT: moist mucous membranes Neck: neck supple, trachea midline Lungs: Good inspiratory effort, no wheeze, no rhonchi, no rales Heart: RRR, normal S1 and S2 GI: Soft, non-distended, non tender, no guarding, no rebound, +BS MSK: no edema noted Skin: warm, dry Psych: appropriate affect Data CBC: Lab Results Component Value Date WBC 13.3 05/16/2020 RBC 4.96 05/16/2020 RBC 4.95 08/26/2018 HGB 14.2 05/16/2020 HCT 41.9 05/16/2020 MCV 84.5 05/16/2020 MCH 28.6 05/16/2020 MCHC 33.9 05/16/2020 RDW 14.2 05/16/2020 PLT 443 05/16/2020 MPV 9.6 08/26/2018 CMP: Lab Results Component Value Date NA 138 05/16/2020 K 4.6 05/16/2020 K 3.6 05/07/2020 CL 96 05/16/2020 CO2 21 05/16/2020 BUN 29 05/16/2020 CREATININE 0.53 05/16/2020 GFRAA >60.0 05/16/2020 AGRATIO 1.3 10/15/2017 LABGLOM >60.0 05/16/2020 GLUCOSE 228 05/16/2020 GLUCOSE 240 04/30/2020 PROT 6.4 05/11/2020 LABALBU 3.7 05/16/2020 LABALBU 4.7 04/05/2020 CALCIUM 10.1 05/16/2020 BILITOT 0.4 05/11/2020 ALKPHOS 62 05/11/2020 AST 11 05/11/2020 ALT 8 05/11/2020 ASSESSMENT AND PLAN # Acute hypoxic respiratory failure - due to COVID19 pneumonia - completed IV Remdesivir course - off decadron, continuing SC Lovenox, nasal cannula - s/p transfusion of convalescent plasma - slowly improving, down to 4 liters NC - management per ID and pulmonology # DM2 with hyperglycemia - likely worsened from steroid use - required Insulin infusion initially - improved, infusion stopped - on Lantus, premeal coverage, ISS - managed by endocrinology # Acute / chronic pain with opiate dependence - OARRS reviwed - has received multiple prescriptions of [facility] and percocet by multiple providers - on [facility] and Dilaudid PRN, lidocaine patch, ibuprofen, norflex per pain management Disposition - Pt down to nasal cannula. PT/OT. Possibly home in next 24-48 hours. Will need home O2eval prior to discharge. Need to be weaned to PO pain regimen prior to discharge Titus Call DO Internal Medicine * Jacki Claire OTR/L - 05/16/2020 2:40 PM [facility] Change in Status Communication Form To the referring physician: Chart was reviewed and case was discussed with nursing staff. Pt. is up independently in room and no acute OT needs are present at this time. Please reorder if pt's status changes. We thank you for your referral. Regards, Ally Fraga OT Department. * Gabriele Gabriel PA - 05/16/2020 1:18 PM EST Endocrinology Progress Note TELEHEALTH EVALUATION -- Audio/Visual (During COVID-19 public health emergency) Due to COVID 19 outbreak, patient's visit was converted to a virtual visit. Patient was contacted and agreed to proceed with a virtual visit via Telephone Visit total telephone visit time 12 minutes I was the provider at my office, the patient was on 5 wesy in isolation. The risks and benefits of converting to a virtual visit were discussed in light of the current infectious disease epidemic. Patient also understood that insurance coverage and co-pays are up to their individual insurance plans. Pursuant to the emergency declaration under the [place] Act and the National Emergencies Act, 1135waiver authority and the Coronavirus Preparedness and Response Supplemental Appropriations Act, this Virtual Visit was conducted, with patient's consent, to reduce this and other patient's risk of exposure to COVID-19 and provide continuity of care for an established patient. Gisel Carlton (: 1975) has requested an audio/video evaluation for the following concern(s): Assessment and Plan: Assessment- 1. Type 2 diabetes, poorly controlled 2. COVID 19 3. Hyperglycemia Plan- 1. Continue Lantus 80 units nightly 2. Increase Humalog 40 units before meals 3. Monitor glucose closely 4. Patient may be discharged home from endocrinology standpoint 5. Follow-up with me in 2 weeks POC Glucose: Recent Labs 05/15/20 1115 05/15/20 1615 05/15/20 2002 05/16/20 0724 05/16/20 1129 POCGLU 319* 338* 317* 242* 234* HGBA1C: Lab Results Component Value Date LABA1C 11.6 (H) 05/08/2020 LABA1C 11.5 (H) 05/06/2020 LABA1C 10.7 02/02/2020 CBC: Recent Labs 05/15/20 0803 05/16/20 0747 WBC 11.7* 13.3* HGB 14.0 14.2 PLT 412* 443* CMP: Recent Labs 05/14/20 0740 05/15/20 0803 05/16/20 0747 NA 139 131* 138 K 3.6 4.0 4.6 CL 96 90* 96 CO2 33* 33* 21 BUN 27* 25* 29* CREATININE 0.60 0.52 0.53 GLUCOSE 135* 213* 228* CALCIUM 9.5 9.9 10.1* LABGLOM >60.0 >60.0 >60.0 CC: Chief Complaint Patient presents with Shortness of Breath covid + Subjective: Interval History: Patient is a 44-year-old type 2 insulin-dependent diabetic female poorly controlled. She began having fevers, chills, myalgias, and cough approximately 10 days ago. Symptoms got progressively worse she called 911 was brought to the emergency room and admitted. She was severely hyperglycemic and started on insulin drip this was stopped in about 48 hours and she was restarted on her basal and bolus insulin dosing with improving glycemic control. Gisel states that she is feeling slightly better however she still having significant chest pain and shortness of breath. Review of systems: denies polyuria, polydipsia, ABD pain, flank pain, N/V/D, or diaphoresis Medications: Scheduled Meds: insulin lispro 40 Units Subcutaneous TID WC orphenadrine 100 mg Oral BID lidocaine 3 patch Transdermal Daily hydrOXYzine 25 mg Oral TID insulin glargine 80 Units Subcutaneous Nightly vitamin D 50,000 Units Oral Weekly vitamin C 500 mg Oral Daily zinc sulfate 50 mg Oral Daily furosemide 40 mg Oral Daily insulin lispro 0-18 Units Subcutaneous TID WC insulin lispro 0-9 Units Subcutaneous Nightly metFORMIN 500 mg Oral BID WC metoprolol tartrate 25 mg Oral BID pantoprazole 40 mg Oral QAM AC rosuvastatin 20 mg Oral Daily sodium chloride flush 10 mL Intravenous 2 times per day enoxaparin 30 mg Subcutaneous BID Continuous Infusions: dextrose dextrose 5 % and 0.45 % NaCl Stopped (05/07/20 1155) Objective: Vitals: BP 129/64 Pulse 84 Temp 97.7 F (36.5 C) (Oral) Resp 18 Ht 5' 7 (1.702 m) Wt 272 lb (123.4 kg) LMP (LMP Unknown) SpO2 97% BMI 42.60 kg/m Wt Readings from Last 3 Encounters: 05/15/20 272 lb (123.4 kg) 05/01/20 270 lb (122.5 kg) 04/30/20 270 lb (122.5 kg) Patient Active Problem List: Headache Uncontrolled type 2 diabetes mellitus with complication, with long-term current use of insulin (HCC) Hyperlipidemia GERD (gastroesophageal reflux disease) Recurrent kidney stones Chest pain Steatosis of liver Hypertension Adiposity Tubular adenoma Flank pain Torticollis Diabetic polyneuropathy (HCC) Chronic abdominal pain Chronic lower back pain Opiate use Umbilical hernia without obstruction and without gangrene Acquired absence of other specified parts of digestive tract 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) Pure hypercholesterolemia, unspecified Acute hyperglycemia Recurrent sinusitis Acute exacerbation of Chronic right flank pain Muscular pain in the flank region COVID-19 virus infection Uncontrolled type 2 diabetes mellitus with hyperglycemia (HCC) * Titus Call DO - 05/15/2020 4:49 PM EST Department of Internal Medicine General Internal Medicine Attending Progress Note SUBJECTIVE: Pt seen and examined. Still very sob and worse with exertion. Still requiring IV pain medications OBJECTIVE Medications Current Facility-Administered Medications: insulin lispro (HUMALOG) injection vial 35 Units, 35 Units, Subcutaneous, TID WC HYDROmorphone (DILAUDID) injection 0.5 mg, 0.5 mg, Intravenous, Q4H PRN ibuprofen (ADVIL;MOTRIN) tablet 600 mg, 600 mg, Oral, Q6H PRN HYDROcodone-acetaminophen (NORCO) 5-325 MG per tablet 1.5 tablet, 1.5 tablet, Oral, Q4H PRN orphenadrine (NORFLEX) extended release tablet 100 mg, 100 mg, Oral, BID lidocaine 4 % external patch 3 patch, 3 patch, Transdermal, Daily hydrOXYzine (VISTARIL) capsule 25 mg, 25 mg, Oral, TID insulin glargine (LANTUS) injection vial 80 Units, 80 Units, Subcutaneous, Nightly vitamin D (ERGOCALCIFEROL) capsule 50,000 Units, 50,000 Units, Oral, Weekly vitamin C (ASCORBIC ACID) tablet 500 mg, 500 mg, Oral, Daily zinc sulfate (ZINCATE) capsule 50 mg, 50 mg, Oral, Daily furosemide (LASIX) tablet 40 mg, 40 mg, Oral, Daily insulin lispro (HUMALOG) injection vial 0-18 Units, 0-18 Units, Subcutaneous, TID WC insulin lispro (HUMALOG) injection vial 0-9 Units, 0-9 Units, Subcutaneous, Nightly glucose (GLUTOSE) 40 % oral gel 15 g, 15 g, Oral, PRN dextrose 50 % IV solution, 12.5 g, Intravenous, PRN glucagon (rDNA) injection 1 mg, 1 mg, Intramuscular, PRN dextrose 5 % solution, 100 mL/hr, Intravenous, PRN albuterol sulfate HFA 108 (90 Base) MCG/ACT inhaler 2 puff, 2 puff, Inhalation, Q4H PRN benzonatate (TESSALON) capsule 100 mg, 100 mg, Oral, TID PRN metFORMIN (GLUCOPHAGE) tablet 500 mg, 500 mg, Oral, BID WC metoprolol tartrate (LOPRESSOR) tablet 25 mg, 25 mg, Oral, BID pantoprazole (PROTONIX) tablet 40 mg, 40 mg, Oral, QAM AC rosuvastatin (CRESTOR) tablet 20 mg, 20 mg, Oral, Daily 0.9 % sodium chloride bolus, 30 mL, Intravenous, PRN dextrose 5 % and 0.45 % sodium chloride infusion, , Intravenous, Continuous PRN sodium chloride flush 0.9 % injection 10 mL, 10 mL, Intravenous, 2 times per day sodium chloride flush 0.9 % injection 10 mL, 10 mL, Intravenous, PRN acetaminophen (TYLENOL) tablet 650 mg, 650 mg, Oral, Q6H PRN OR [DISCONTINUED] acetaminophen (TYLENOL) suppository 650 mg, 650 mg, Rectal, Q6H PRN polyethylene glycol (GLYCOLAX) packet 17 g, 17 g, Oral, Daily PRN promethazine (PHENERGAN) tablet 12.5 mg, 12.5 mg, Oral, Q6H PRN OR ondansetron (ZOFRAN) injection 4 mg, 4 mg, Intravenous, Q6H PRN enoxaparin (LOVENOX) injection 30 mg, 30 mg, Subcutaneous, BID guaiFENesin-dextromethorphan (ROBITUSSIN DM) 100-10 MG/5ML syrup 5 mL, 5 mL, Oral, Q4H PRN zolpidem (AMBIEN) tablet 5 mg, 5 mg, Oral, Nightly PRN Physical VITALS: BP 124/76 Pulse 116 Temp 98.1 F (36.7 C) (Oral) Resp 18 Ht 5' 7 (1.702 m) Wt 272lb (123.4 kg) LMP (LMP Unknown) SpO2 93% BMI 42.60 kg/m Constitutional: Awake and alert lying in bed comfortably Head: Normocephalic, atraumatic Eyes: EOMI, PERRLA ENT: moist mucous membranes Neck: neck supple, trachea midline Lungs: Good inspiratory effort, no wheeze, no rhonchi, no rales Heart: RRR, normal S1 and S2 GI: Soft, non-distended, non tender, no guarding, no rebound, +BS MSK: no edema noted Skin: warm, dry Psych: appropriate affect Data CBC: Lab Results Component Value Date WBC 11.7 05/15/2020 RBC 5.05 05/15/2020 RBC 4.95 08/26/2018 HGB 14.0 05/15/2020 HCT 41.8 05/15/2020 MCV 82.7 05/15/2020 MCH 27.7 05/15/2020 MCHC 33.5 05/15/2020 RDW 14.1 05/15/2020 PLT 412 05/15/2020 MPV 9.6 08/26/2018 CMP: Lab Results Component Value Date NA 131 05/15/2020 K 4.0 05/15/2020 K 3.6 05/07/2020 CL 90 05/15/2020 CO2 33 05/15/2020 BUN 25 05/15/2020 CREATININE 0.52 05/15/2020 GFRAA >60.0 05/15/2020 AGRATIO 1.3 10/15/2017 LABGLOM >60.0 05/15/2020 GLUCOSE 213 05/15/2020 GLUCOSE 240 04/30/2020 PROT 6.4 05/11/2020 LABALBU 4.0 05/15/2020 LABALBU 4.7 04/05/2020 CALCIUM 9.9 05/15/2020 BILITOT 0.4 05/11/2020 ALKPHOS 62 05/11/2020 AST 11 05/11/2020 ALT 8 05/11/2020 ASSESSMENT AND PLAN # Acute hypoxic respiratory failure - due to COVID19 pneumonia - completed IV Remdesivir course - on decadron, SC Lovenox, nasal cannula - s/p transfusion of convalescent plasma - slowly improving, down to 4 liters NC - management per ID and pulmonology # DM2 with hyperglycemia - likely worsened from steroid use - required Insulin infusion initially - improved, infusion stopped - on Lantus, premeal coverage, ISS - managed by endocrinology # Acute / chronic pain with opiate dependence - OARRS reviwed - has received multiple prescriptions of [facility] and percocet by multiple providers - on [facility] and Dilaudid PRN, lidocaine patch, ibuprofen, norflex per pain management Disposition - Pt down to nasal cannula. PT/OT. Possibly home in next 24-48 hours. Will need home O2eval prior to discharge. Need to be weaned to PO pain regimen prior to discharge Titus Call DO Internal Medicine * Emma Hunter RN - 05/15/2020 2:50 PM EST Pt is alert and oriented 4. She is still SOB and on 4L nasal cannula. She does not wear any oxygen at home. She c/o right upper back pain. Medicating with norco and dilaudid as needed. Pt remain in covid isolation. * Steven Hi, PT - 05/15/2020 1:22 PM EST Physical Therapy Missed Treatment Facility/Department: [facility] MED SURG [id number] NAME: Gisel Carlton : 1975 (44 y.o.) Account: [id number] Gender: female PT referral received. Chart reviewed. Case discussed with nursing. Pt is in Droplet plus isolation and is indep in room with nursing.It is determined that pt has no PT needs at this time Steven Hi, PT, 05/15/20 at 1:22 PM * Anamaria Lara RD, LD - 05/15/2020 1:04 PM EST Comprehensive Nutrition Assessment Type and Reason for Visit: Reassess Nutrition Recommendations/Plan: Continue with Carb Control diet Increase diabetic ONS ( no vanilla) to 2 x every meal , until po >75% Current weight ordered for further assessement Nutrition Assessment: Suspected mild malnutrition related to COIVD -19, pt still reports ' barely eating' although she does take 100% of ONS, Antipicate wt loss, but no new weights to review Malnutrition Assessment: Malnutrition Status: Mild malnutrition Context: Acute Illness Findings of the 6 clinical characteristics of malnutrition: Energy Intake: 7 - 50% or less of estimated energy requirements for 5 or more days Weight Loss: Unable to assess Body Fat Loss: Unable to assess Muscle Mass Loss: Unable to assess Fluid Accumulation: No significant fluid accumulation 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 Strength: Not Performed Estimated Daily Nutrient Needs: Energy (kcal): 1484-1066 kcals @ 12-14 kcal/kg; Weight Used for Energy Requirements: Current(124 kg) Protein (g): ~122 g protein @ 2 g/kg IBW; Weight Used for Protein Requirements: Jones(61 kg) Fluid (ml/day): ~1800; Method Used for Fluid Requirements: 1 ml/kcal Nutrition Related Findings: glucose > 200, still on steroids, c/o feeling weak trying to eat, but is always < 50% of trays, does like diabeitc ONS ( no vanilla) requesting 2 x per tray as it isthe only ' thing that sounds good to me' Wounds: None Current Nutrition Therapies: DIET CARB CONTROL; Safety Tray; Safety Tray (Disposables) Dietary Nutrition Supplements: Diabetic Oral Supplement Anthropometric Measures: Height: 5' 7 (170.2 cm) Current Body Weight: (n/a- weight ordered 05/15) Admission Body Weight: 270 lb (122.5 kg) Usual Body Weight: 263 lb (119.3 kg)(07/18) Jones Body Weight: 135 lbs; % Jones Body Weight >100% BMI: 42.7 BMI Categories: Obese Class 3 (BMI 40.0 or greater) Nutrition Diagnosis: Predicted inadequate energy intake related to other (comment)(acute illness) as evidenced by other (comment)(+ COVID 19) Nutrition Interventions: Food and/or Nutrient Delivery: Continue Current Diet, Modify Oral Nutrition Supplement Nutrition Education/Counseling: Education not indicated Coordination of Nutrition Care: No recommendation at this time, Continue to monitor while inpatient Goals: po > 75% meals, gluc < 200 Nutrition Monitoring and Evaluation: Food/Nutrient Intake Outcomes: Diet Advancement/Tolerance, Food and Nutrient Intake, Supplement Intake Physical Signs/Symptoms Outcomes: Meal Time Behavior, GI Status, Biochemical Data, Weight Discharge Planning: Too soon to determine * Linda Mcclain RN - 05/15/2020 2:23 AM EST Pt is in bed resting. In bed. assessment documented. Medicated per AUG. She c/o pain being 10/10, medicated per AUG for pain. No other needs at this time. VSS, afebrile. Reminded pt to keep NC on. Will continue to monitor. * Titus Call DO - 05/14/2020 6:09 PM EST Department of Internal Medicine General Internal Medicine Attending Progress Note SUBJECTIVE: Pt seen and examined. Still very sob and worse with exertion. Complains that pain regimen is not working OBJECTIVE Medications Current Facility-Administered Medications: insulin lispro (HUMALOG) injection vial 35 Units, 35 Units, Subcutaneous, TID WC HYDROmorphone (DILAUDID) injection 0.5 mg, 0.5 mg, Intravenous, Q4H PRN ibuprofen (ADVIL;MOTRIN) tablet 600 mg, 600 mg, Oral, Q6H PRN HYDROcodone-acetaminophen (NORCO) 5-325 MG per tablet 1.5 tablet, 1.5 tablet, Oral, Q4H PRN orphenadrine (NORFLEX) extended release tablet 100 mg, 100 mg, Oral, BID lidocaine 4 % external patch 3 patch, 3 patch, Transdermal, Daily hydrOXYzine (VISTARIL) capsule 25 mg, 25 mg, Oral, TID insulin glargine (LANTUS) injection vial 80 Units, 80 Units, Subcutaneous, Nightly vitamin D (ERGOCALCIFEROL) capsule 50,000 Units, 50,000 Units, Oral, Weekly vitamin C (ASCORBIC ACID) tablet 500 mg, 500 mg, Oral, Daily zinc sulfate (ZINCATE) capsule 50 mg, 50 mg, Oral, Daily furosemide (LASIX) tablet 40 mg, 40 mg, Oral, Daily insulin lispro (HUMALOG) injection vial 0-18 Units, 0-18 Units, Subcutaneous, TID WC insulin lispro (HUMALOG) injection vial 0-9 Units, 0-9 Units, Subcutaneous, Nightly glucose (GLUTOSE) 40 % oral gel 15 g, 15 g, Oral, PRN dextrose 50 % IV solution, 12.5 g, Intravenous, PRN glucagon (rDNA) injection 1 mg, 1 mg, Intramuscular, PRN dextrose 5 % solution, 100 mL/hr, Intravenous, PRN albuterol sulfate HFA 108 (90 Base) MCG/ACT inhaler 2 puff, 2 puff, Inhalation, Q4H PRN benzonatate (TESSALON) capsule 100 mg, 100 mg, Oral, TID PRN metFORMIN (GLUCOPHAGE) tablet 500 mg, 500 mg, Oral, BID WC metoprolol tartrate (LOPRESSOR) tablet 25 mg, 25 mg, Oral, BID pantoprazole (PROTONIX) tablet 40 mg, 40 mg, Oral, QAM AC rosuvastatin (CRESTOR) tablet 20 mg, 20 mg, Oral, Daily 0.9 % sodium chloride bolus, 30 mL, Intravenous, PRN dextrose 5 % and 0.45 % sodium chloride infusion, , Intravenous, Continuous PRN sodium chloride flush 0.9 % injection 10 mL, 10 mL, Intravenous, 2 times per day sodium chloride flush 0.9 % injection 10 mL, 10 mL, Intravenous, PRN acetaminophen (TYLENOL) tablet 650 mg, 650 mg, Oral, Q6H PRN OR [DISCONTINUED] acetaminophen (TYLENOL) suppository 650 mg, 650 mg, Rectal, Q6H PRN polyethylene glycol (GLYCOLAX) packet 17 g, 17 g, Oral, Daily PRN promethazine (PHENERGAN) tablet 12.5 mg, 12.5 mg, Oral, Q6H PRN OR ondansetron (ZOFRAN) injection 4 mg, 4 mg, Intravenous, Q6H PRN enoxaparin (LOVENOX) injection 30 mg, 30 mg, Subcutaneous, BID dexamethasone (DECADRON) tablet 6 mg, 6 mg, Oral, Daily guaiFENesin-dextromethorphan (ROBITUSSIN DM) 100-10 MG/5ML syrup 5 mL, 5 mL, Oral, Q4H PRN zolpidem (AMBIEN) tablet 5 mg, 5 mg, Oral, Nightly PRN Physical VITALS: BP 131/75 Pulse 79 Temp 97.9 F (36.6 C) (Oral) Resp 20 Ht 5' 7 (1.702 m) Wt 273 lb (123.8 kg) LMP (LMP Unknown) SpO2 96% BMI 42.76 kg/m Constitutional: Awake and alert lying in bed comfortably Head: Normocephalic, atraumatic Eyes: EOMI, PERRLA ENT: moist mucous membranes Neck: neck supple, trachea midline Lungs: Good inspiratory effort, no wheeze, no rhonchi, no rales Heart: RRR, normal S1 and S2 GI: Soft, non-distended, non tender, no guarding, no rebound, +BS MSK: no edema noted Skin: warm, dry Psych: appropriate affect Data CBC: Lab Results Component Value Date WBC 8.3 05/14/2020 RBC 4.96 05/14/2020 RBC 4.95 08/26/2018 HGB 13.5 05/14/2020 HCT 40.8 05/14/2020 MCV 82.3 05/14/2020 MCH 27.3 05/14/2020 MCHC 33.1 05/14/2020 RDW 14.2 05/14/2020 PLT 395 05/14/2020 MPV 9.6 08/26/2018 CMP: Lab Results Component Value Date NA 139 05/14/2020 K 3.6 05/14/2020 K 3.6 05/07/2020 CL 96 05/14/2020 CO2 33 05/14/2020 BUN 27 05/14/2020 CREATININE 0.60 05/14/2020 GFRAA >60.0 05/14/2020 AGRATIO 1.3 10/15/2017 LABGLOM >60.0 05/14/2020 GLUCOSE 135 05/14/2020 GLUCOSE 240 04/30/2020 PROT 6.4 05/11/2020 LABALBU 3.7 05/14/2020 LABALBU 4.7 04/05/2020 CALCIUM 9.5 05/14/2020 BILITOT 0.4 05/11/2020 ALKPHOS 62 05/11/2020 AST 11 05/11/2020 ALT 8 05/11/2020 ASSESSMENT AND PLAN # Acute hypoxic respiratory failure - due to COVID19 pneumonia - completed IV Remdesivir course - on decadron, SC Lovenox, HFNC - s/p transfusion of convalescent plasma - slowly improving, down to 5 liters NC - management per ID and pulmonology # DM2 with hyperglycemia - likely worsened from steroid use - required Insulin infusion initially - improved, infusion stopped - on Lantus, premeal coverage, ISS - managed by endocrinology # Acute / chronic pain with opiate dependence - OARRS reviwed - has received multiple prescriptions of [facility] and percocet by multiple providers - on [facility] and Dilaudid PRN, lidocaine patch, ibuprofen, norflex per pain management Disposition - Pt down to nasal cannula. PT/OT. Possibly home in next 24-48 hours. Will need home O2eval prior to discharge Titus Call DO Internal Medicine * Marcella Robins MD - 05/14/2020 4:24 PM EST Infectious Diseases Inpatient Progress Note HISTORY OF PRESENT ILLNESS: Follow up for COVID-19 pneumonia on IV remdesivir, well tolerated. Patient has decreased shortness of breath, dry cough, proving appetite. Currently on 5 L nasal cannula. S/P 2 unit of convalescent plasma on 05/07. Feels very weak. Current Medications: insulin lispro 35 Units Subcutaneous TID WC orphenadrine 100 mg Oral BID lidocaine 3 patch Transdermal Daily hydrOXYzine 25 mg Oral TID insulin glargine 80 Units Subcutaneous Nightly vitamin D 50,000 Units Oral Weekly vitamin C 500 mg Oral Daily zinc sulfate 50 mg Oral Daily furosemide 40 mg Oral Daily insulin lispro 0-18 Units Subcutaneous TID WC insulin lispro 0-9 Units Subcutaneous Nightly metFORMIN 500 mg Oral BID WC metoprolol tartrate 25 mg Oral BID pantoprazole 40 mg Oral QAM AC rosuvastatin 20 mg Oral Daily sodium chloride flush 10 mL Intravenous 2 times per day enoxaparin 30 mg Subcutaneous BID dexamethasone 6 mg Oral Daily Allergies: Fentanyl; Pcn [penicillins]; Demerol; Morphine; Nubain [nalbuphine hcl]; Aspirin; Ciprofloxacin; and Ketorolac tromethamine Review of Systems 14 system review is negative other than HPI Physical Exam Vitals: 05/13/20 0843 05/13/20 1518 05/13/20 2013 05/14/20 0709 BP: (!) 114/58 139/75 132/78 131/75 Pulse: 86 85 95 79 Resp: Temp: 98.1 F (36.7 C) 98.4 F (36.9 C) 98.2 F (36.8 C) 97.9 F (36.6 C) TempSrc: Oral Oral Oral Oral SpO2: 95% 97% 95% 96% Weight: Height: General Appearance: alert and oriented to person, place and time, well-developed and well-nourished, in no acute distress, on high flow oxygen 14 L Skin: warm and dry, no rash. Head: normocephalic and atraumatic Eyes: extraocular eye movements intact, conjunctivae normal, anicteric sclerae ENT: oropharynx clear and moist with normal mucous membranes. No thrush Lungs: normal respiratory effort, no rales, diminished breath sounds Heart:RRR, nl S1/S2, no murmur Abdomen: soft, obese, no tenderness, no H-S-megaly, + BS NEUROLOGICAL: alert and oriented x 3, no focal deficits No leg edema No erythema, no warmth, no tenderness DATA: Lab Results Component Value Date WBC 8.3 05/14/2020 HGB 13.5 05/14/2020 HCT 40.8 05/14/2020 MCV 82.3 05/14/2020 PLT 395 05/14/2020 Lab Results Component Value Date CREATININE 0.60 05/14/2020 BUN 27 (H) 05/14/2020 NA 139 05/14/2020 K 3.6 05/14/2020 CL 96 05/14/2020 CO2 33 (H) 05/14/2020 Hepatic Function Panel: Lab Results Component Value Date ALKPHOS 62 05/11/2020 ALT 8 05/11/2020 AST 11 05/11/2020 PROT 6.4 05/11/2020 BILITOT 0.4 05/11/2020 BILIDIR 0.0 11/09/2019 IBILI see below 04/17/2019 LABALBU 3.7 05/14/2020 LABALBU 4.7 04/05/2020 FINDINGS: Osseous structures intact. Cardiopericardial silhouette normal. A homogeneous area of increased opacity is found in the right upper lobe marginated inferiorly by the minor fissure with an ill-defined area of increased opacity identified in the right lower lobe. There is of increased opacity are also visualized in the left lower lung zone. Impression BILATERAL PNEUMONIA 05/09/2020 8:25 AM - Hemant, Chpo Incoming Lab Results From Soft Component Value Ref Range & Units Status Collected Lab D-Dimer, Quant 0.87High Panic 0.00 - 0.50 IMPRESSION: Severe COVID-19 pneumonia Acute respiratory failure with hypoxia Hypercoagulable state Uncontrolled diabetes mellitus type 2 with hemoglobin A1c of 11.6 Patient Active Problem List Diagnosis Headache Uncontrolled type 2 diabetes mellitus with complication, with long-term current use of insulin (HCC) Hyperlipidemia GERD (gastroesophageal reflux disease) Recurrent kidney stones Chest pain Steatosis of liver Hypertension Adiposity Tubular adenoma Flank pain Torticollis Diabetic polyneuropathy (HCC) Chronic abdominal pain Chronic lower back pain Opiate use Umbilical hernia without obstruction and without gangrene Acquired absence of other specified parts of 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 Anterior pleuritic pain in patient with COVID-19 Costochondritis, acute Acute exacerbation of chronic generalized pain associated with significant psychosocial dysfunction Fatigue due to exposure PLAN: Recommend home oxygen evaluation and discharge when okay with other physicians Oxygen support and weaning as tolerated I will sign off from my perspective Discussed with patient, RN Marcella Robins MD * Marlin Hernandez, DO - 05/13/2020 8:35 PM EST Infectious Disease Progress Note In order to conserve PPE during this COVID-19 surge, and to make the conversation clearer for the patient, a combination of telephone conversation, observation and communication through open door, and nurse assisted exam used for this visit. All labs and images were reviewed. Time spent with patient, on patient's chart reviewing information pertinent to this case, and in discussion with other members of the healthcare teach >15 min in total Patient is a followup regarding COVID-19 pneumonia done with IV remdesivir on 05/10, on high flow oxygen initially and weaning down. Now started on 5L NC and seems to be tolerating this. S/P 2 units of convalescent plasma on 05/07 Hx of DM2 with Hemoglobin A1C of >11 Still having pain. Complains that her IV is not working correctly Lab Results Component Value Date WBC 8.9 05/13/2020 HGB 13.6 05/13/2020 HCT 40.0 05/13/2020 MCV 81.7 (L) 05/13/2020 PLT 415 (H) 05/13/2020 Lab Results Component Value Date NA 140 05/13/2020 K 3.3 05/13/2020 K 3.6 05/07/2020 CL 96 05/13/2020 CO2 29 05/13/2020 BUN 22 05/13/2020 CREATININE 0.56 05/13/2020 GLUCOSE 120 05/13/2020 GLUCOSE 240 04/30/2020 CALCIUM 9.6 05/13/2020 WBC trends are being monitored. Antibiotic doses are being adjusted per most recent renal labs. 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 Anterior pleuritic pain in patient with COVID-19 Costochondritis, acute Acute exacerbation of chronic generalized pain associated with significant psychosocial dysfunction Fatigue due to exposure Physical exam: Nurse has assisted in exam Neck supple Heart S1 S2 Lungs chest equal rise and fall Verbalizes - no conversational dyspnea. ASSESSMENT/ PLAN: COVID 19 pneumonia Generalized nonspecific pain Uncontrolled DM2 O2 support and weaning Marlin Hernandez DO * Alvaro Newton MD - 05/13/2020 2:47 PM EST INPATIENT PROGRESS NOTES PATIENT NAME: Gisel Carlton SERVICE DATE: May 13, 2020 SERVICE TIME: 2:47 PM PRIMARY SERVICE: Pulmonary Disease CHIEF COMPLAINTS: COVID-19 pneumonia INTERVAL HPI: Patient seen and examined at bedside, Interval Notes, orders reviewed. Nursing notes noted Doing better, did not complain of any chest pain today, improved, she is down to 5 L O2, [id number]%, no fever nausea no vomiting Review of system: GI Abdominal pain No Skin Rash No Social History Tobacco Use Smoking status: Never Smoker Smokeless tobacco: Never Used Substance Use Topics Alcohol use: No Problem Relation Age of Onset Heart Disease Father OBJECTIVE Body mass index is 42.76 kg/m . PHYSICAL EXAM: Vitals: BP (!) 114/58 Pulse 86 Temp 98.1 F (36.7 C) (Oral) Resp 19 Ht 5' 7 (1.702 m) Wt 273 lb (123.8 kg) LMP (LMP Unknown) SpO2 95% BMI 42.76 kg/m General: alert, cooperative, mild distress Head: normocephalic, atraumatic Eyes:No gross abnormalities. ENT: MMM no lesions Neck: supple and no masses Chest : Good air movement, no wheezing, no rales, nontender, tympanic Heart:: Heart sounds are normal. Regular rate and rhythm without murmur, gallop or rub. ABD: symmetric, soft, non-tender Musculoskeletal : no cyanosis, no clubbing and no edema Neuro: Grossly normal Skin: No rashes or nodules noted. Lymph node: no cervical nodes Urology: No [facility]: appropriate DATA: Recent Labs 05/12/20 0745 05/13/20 0706 WBC 6.6 8.9 HGB 13.0 13.6 HCT 38.1 40.0 MCV 82.0 81.7* PLT 346 415* Recent Labs 05/11/20 0818 05/13/20 0706 NA 136 140 K 3.9 3.3* CL 96 96 CO2 29 29 BUN 20 22* CREATININE 0.49* 0.56 GLUCOSE 224* 120* CALCIUM 9.2 9.6 PROT 6.4 -- LABALBU 3.3* 3.7 BILITOT 0.4 -- ALKPHOS 62 -- AST 11 -- ALT 8 -- LABGLOM >60.0 >60.0 GFRAA >60.0 >60.0 GLOB 3.1 -- MV Settings: No results for input(s): PHART, [id number], PO2ART, GZE0LRU, BEART, [id number] in the last 72 hours. O2 Device: High flow nasal cannula O2 Flow Rate (L/min): 5 L/min Dietary Nutrition Supplements: Diabetic Oral Supplement DIET CARB CONTROL; Safety Tray; Safety Tray (Disposables) MEDICATIONS during current hospitalization: Continuous Infusions: dextrose dextrose 5 % and 0.45 % NaCl Stopped (05/07/20 1155) Scheduled Meds: orphenadrine 100 mg Oral BID lidocaine 3 patch Transdermal Daily hydrOXYzine 25 mg Oral TID insulin lispro 30 Units Subcutaneous TID insulin glargine 80 Units Subcutaneous Nightly vitamin D 50,000 Units Oral Weekly vitamin C 500 mg Oral Daily zinc sulfate 50 mg Oral Daily furosemide 40 mg Oral Daily insulin lispro 0-18 Units Subcutaneous TID WC insulin lispro 0-9 Units Subcutaneous Nightly metFORMIN 500 mg Oral BID WC metoprolol tartrate 25 mg Oral BID pantoprazole 40 mg Oral QAM AC rosuvastatin 20 mg Oral Daily sodium chloride flush 10 mL Intravenous 2 times per day enoxaparin 30 mg Subcutaneous BID dexamethasone 6 mg Oral Daily PRN Meds:HYDROmorphone, ibuprofen, HYDROcodone 5 mg - acetaminophen, glucose, dextrose, glucagon (rDNA), dextrose, albuterol sulfate HFA, benzonatate, sodium chloride, dextrose 5 % and 0.45 % NaCl, sodium chloride flush, acetaminophen OR [DISCONTINUED] acetaminophen, polyethylene glycol, promethazine OR ondansetron, guaiFENesin-dextromethorphan, zolpidem Radiology Ct Abdomen Pelvis Wo Contrast Result Date: 04/30/2020 Patient Name: GISEL CARLTON STUDY: CT ABDOMEN AND PELVIS WO CONTRAST; 04/30/2020 10:48 am INDICATION: Right flank pain. COMPARISON: 03/01/2020 ACCESSION NUMBER(S): [id number] ORDERING CLINICIAN: MARGUERITE LONG TECHNIQUE: Contiguous axial images were obtained through the abdomen and pelvis without the use of contrast. Coronal and sagittal reconstructions were performed. FINDINGS: LOWER CHEST: Images through the lung bases demonstrate nonspecific ground-glass opacities as well as numerous nodular opacities, measuring up to 1.0 cm in size. These are nonspecific and may relate to an inf ectious/inflammatory process. However, follow-up is recommended to exclude the possibility of metastatic disease. ABDOMEN AND PELVIS: LIVER: 2.1 cm hypoattenuating lesion is seen within the medial segment of left hepatic lobe. This is indeterminate and will require further evaluation/follow-up. BILE DUCTS: Not abnormally dilated. GALLBLADDER: The gallbladder is surgically absent. PANCREAS: Appears unremarkable. SPLEEN: Appears unremarkable. ADRENAL GLANDS: Appear unremarkable. KIDNEYS, URETERS,AND BLADDER: 1 mm nonobstructing calculus in the upper pole the right kidney. No radiopaque calculinoted within the left kidney. No hydronephrosis. The urinary bladder appears grossly unremarkable. B OWEL: The small and large bowel are normal in caliber and demonstrate no wall thickening. There is no evidence of a bowel obstruction. Appendix is normal in caliber. Although CT has limited sensitivity and specificity for gastric pathology, the stomach appears grossly unremarkable. RETROPERITONEUM,VESSELS: There is no aneurysmal dilatation of the abdominal aorta. The IVC is within normal limits.No pathologically enlarged retroperitoneal lymph nodes are noted. PERITONEUM: There is no evidence of pneumoperitoneum. No ascites or loculated fluid collection noted. No pathologically enlarged mesenteric lymph nodes are identified. ABDOMINAL WALL, SOFT TISSUES: Postsurgical changes. No acute proce ss. SKELETON: Degenerative changes. IMPRESSION: No evidence of nephrolithiasis or hydronephrosis. No signs of obstructive uropathy. Nonspecific ground-glass opacities in the lungs with numerous nodular opacities, measuring up to 1.0 cm. The findings are nonspecific may relate to an infectious or inflammatory process. However, follow-up is recommended as metastatic disease cannot be excluded. Indeterminate 2.1 cm lesion in the medial segment of left hepatic lobe. Consider MRI for further evaluation. Electronically signed by: FELIPE MOFFETT MD Ct Abdomen Pelvis Wo Contrast Additional Contrast? None Result Date: 04/29/2020 CT of the Abdomen and Pelvis without intravenous contrast medium History: Left flank pain TechnicalFactors: CT imaging of the abdomen and pelvis were obtained and formatted as 5 mm contiguous axial images from the domes of the diaphragm to the symphysis pubis. Sagittal and coronal reconstructions were also obtained. Oral contrast medium: None. Intravenous contrast medium: None. Comparison: CT abdomen pelvis, February 17, 2020, January 14, 2020, July 09, 2019. Findings: Lungs: Bibasilar lower lobe subsegmental atelectatic change Liver: Normal in size, shape, and attenuation. Bile Ducts: Normal in caliber. Gallbladder: Gallbladder surgically absent. Pancreas: Normal without masses, cysts, ductal dilatation or calcification. Spleen: Normal in size without masses or calcifications. No splenules. Kidneys: Normal in size. 1 mm calculus upper pole right kidney. No right hydronephrosis or masses. Less than 1 mm calculus, lower pole left kidney. No hydronephrosis or masses. Adrenals: Normal. Small bowel: Normal in caliber. Appendix: Normal. Colon: Normal in caliber. Copious stool throughout colon. Peritoneum: No ascites, free air, or fluid collections. Vessels: Aorta normal in course and caliber. Lymph nodes: Retroperitoneal: No enlarged retroperitoneal lymph nodes. Mesenteric: No enlarged mesenteric lymph nodes. Pelvic: No enlarged pelvic lymph nodes. Ureters: Normal in course and caliber. No calcifications. Bladder: No wall thickening. Reproductive organs: Uterus surgically absent. Abdominal Wall: No hernia identified Bones: No bone lesions. No degenerative changes. No post operative changes. Nonobstructing bilateral renal calculi. Constipation. Cholecystectomy. Hysterectomy. All CT scans at this facility use dose modulation, iterative reconstruction, and/or weight based dosing when appropriate to reduce radiation dose to as low as reasonably achievable. Cta Chest W Wo (pe Study) Result Date: 05/05/2020 EXAM:CTA CHEST W WO CONTRAST DATE05/05/2020 11:06 AM: REASON FOR EXAM:Acute severe anterior chest wall pain. covid positive hypoxic COMPARISON: none Technique: Helical CT was performed through the chest following the IV administration of100 cc of nonionic contrast. 3-D MIP reconstructions were performed on an independent workstation in the coronal plane with thick slab technique utilized in the interpretation. 3-D maximum intensity projection performed. All CT scans at this facility use dose modulation, iterative reconstruction, and/or weight based dosing when appropriate to reduce radiation dose to as low as reasonably achievable. FINDINGS Mediastinum: Mediastinum and zohaib are normal. Thereare no pathologically enlarged lymph nodes. The chest wall and lower neck are normal Heart: The heart is within normal limits. There is no pericardial effusion. Vascular structures:There is no evidence for thoracic aortic aneurysm or dissection. No evidence of traumatic aortic injury. There is no evidence for pulmonary emboli. Lungs: There are patchy alveolar opacities scattered throughout all segments of both lungs. Pleura: No pleural effusion or thickening. Upper abdomen: The visualized portions of the upper abdomen are unremarkable. Bones/axillae/soft tissues: Osseous structures and chest wall are normal. There are patchy alveolar opacities scattered throughout all segments of both lungs indicating pneumonia which may represent viral, COVID-19 pneumonia versus other etiologies. . No evidence of thoracic aortic dissection or aneurysm. The study is negative for pulmonary emboli. Xr Chest Portable Result Date: 05/08/2020 EXAMINATION: XR CHEST PORTABLE CLINICAL HISTORY: HYPOXIA COMPARISONS: MAY 07, 2020 FINDINGS: Osseous structures intact. Cardiopericardial silhouette normal. A homogeneous area of increased opacity is found in the right upper lobe marginated inferiorly by the minor fissure with an ill-defined area of increased opacity identified in the right lower lobe. There is of increased opacity are also visualized in the left lower lung zone. BILATERAL PNEUMONIA Xr Chest Portable Result Date: 05/07/2020 Exam: XR CHEST PORTABLE History: Hypoxia. Code 19 pneumonia. Technique: AP portable view of the chest obtained. Comparison: Portable chest radiograph from May 05, 2020 Findings: The cardiomediastinal silhouette is within normal limits. Interval improvement but persistence of patchy bilateral airspace opacities. No pneumothorax or pleural effusion. No acute osseous abnormality. Interval improvement but persistence of bilateral pneumonia. Xr Chest Portable Result Date: 05/05/2020 Exam: XR CHEST PORTABLE History: cp Technique: AP portable view of the chest obtained. Comparison: None Findings: The cardiomediastinal silhouette is within normal limits. There are ill-defined patchy alveolar opacities in both lungs, left greater than right. Bones of the thorax appear intact. There are alveolar opacities which may represent early infiltrates, pneumonia. The differential includes COVID-19 pneumonia versus other etiologies Xr Chest Portable Result Date: 05/01/2020 EXAMINATION: CHEST PORTABLE VIEW CLINICAL HISTORY: Weakness, short of breath COMPARISONS: April 30, 2020 0740 hours FINDINGS: Single views of the chest is submitted. The cardiac silhouette is unchanged. . Pulmonary vascular unremarkable. Right sided trachea. Developing area of atelectasis, groundglass infiltrate left lower lobe. No Pneumothoraces. DEVELOPING AREA OF ATELECTASIS, GROUNDGLASS INFILTRATE LEFT LOWER LOBE Xr Chest Portable Result Date: 04/30/2020 Exam: XR CHEST PORTABLE History: cough Technique: AP portable view of the chest obtained. Comparison: None Findings: The cardiomediastinal silhouette is within normal limits. There are no infiltrates, consolidations or effusions. Bones of the thorax appear intact. No radiographic evidence of acute intrathoracic process. Us Dup Lower Extremities Bilateral Venous Result Date: 05/06/2020 VENOUS DUPLEX ULTRASOUND OF THE BILATERAL LOWER EXTREMITY CLINICAL HISTORY: COVID, r/o dvt COMPARISON: NONE AVAILABLE TECHNIQUE: Sonographic imaging of the deep venous system of the bilateral lower extremities was performed by a registered apparel sales leader and the images were submitted for interpretation. FINDINGS: The common femoral, superficial femoral, and popliteal veins demonstrate normal color flow, augmentation, and compressibility. No venous duplex ultrasound evidence of DVT in the bilaterallower extremities. NO SONOGRAPHIC EVIDENCE OF DEEP VENOUS THROMBOSIS WITHIN THE BILATERAL LOWER EXTREMITIES. Chest x-ray reviewed by me, shows bilateral groundglass infiltrates IMPRESSION AND SUGGESTION: Patient is at risk due to Acute hypoxic story failure COVID-19 pneumonia Volume overload, improved Hypercoagulable state Obesity Recommendation Complete 10 days of dexamethasone Patient completed remdesivir treatment O2 to keep sat 92 to 95%, wean off as tolerated Pain control Encourage activity DVT prophylax Continue diuretics Pulmonary hygiene blood sugar control per primary team Pulmonary will sign off, please call for any question or concern * Trent Velasquez MD - 05/13/2020 12:50 PM EST Hospitalist Progress Note PCP: Skye Jones, CERTIFIED PROSTHETIST VICE PRESIDENT - DIRECTOR OF PHOTOGRAPHY Date of Admission: 05/05/2020 Chief Complaint: Patient is saturating well on 5 liters of HFNC, afebrile, stable HD, Medications: Reviewed Infusion Medications dextrose dextrose 5 % and 0.45 % NaCl Stopped (05/07/20 1155) Scheduled Medications orphenadrine 100 mg Oral BID lidocaine 3 patch Transdermal Daily hydrOXYzine 25 mg Oral TID insulin lispro 30 Units Subcutaneous TID WC insulin glargine 80 Units Subcutaneous Nightly vitamin D 50,000 Units Oral Weekly vitamin C 500 mg Oral Daily zinc sulfate 50 mg Oral Daily furosemide 40 mg Oral Daily insulin lispro 0-18 Units Subcutaneous TID WC insulin lispro 0-9 Units Subcutaneous Nightly metFORMIN 500 mg Oral BID WC metoprolol tartrate 25 mg Oral BID pantoprazole 40 mg Oral QAM AC rosuvastatin 20 mg Oral Daily sodium chloride flush 10 mL Intravenous 2 times per day enoxaparin 30 mg Subcutaneous BID dexamethasone 6 mg Oral Daily PRN Meds: HYDROmorphone, ibuprofen, HYDROcodone 5 mg - acetaminophen, glucose, dextrose, glucagon (rDNA), dextrose, albuterol sulfate HFA, benzonatate, sodium chloride, dextrose 5 % and 0.45 % NaCl, sodium chloride flush, acetaminophen OR [DISCONTINUED] acetaminophen, polyethylene glycol, promethazine OR ondansetron, guaiFENesin-dextromethorphan, zolpidem Intake/Output Summary (Last 24 hours) at 05/13/2020 1250 Last data filed at 05/13/2020 0627 Gross per 24 hour Intake 260 ml Output Net 260 ml Exam: BP (!) 114/58 Pulse 86 Temp 98.1 F (36.7 C) (Oral) Resp 19 Ht 5' 7 (1.702 m) Wt 273 lb (123.8 kg) LMP (LMP Unknown) SpO2 95% BMI 42.76 kg/m General appearance: appears stated age and cooperative. Respiratory: Diminished BS bilaterally Cardiovascular: Regular rate and rhythm with normal S1S2 Abdomen: Soft, active bowel sounds. Musculoskeletal: No edema bilaterally. Labs: Recent Labs 05/11/20 0817 05/12/20 0745 05/13/20 0706 WBC 6.4 6.6 8.9 HGB 12.6 13.0 13.6 HCT 37.9 38.1 40.0 PLT 313 346 415* Recent Labs 05/11/20 0818 05/13/20 0706 NA 136 140 K 3.9 3.3* CL 96 96 CO2 29 29 BUN 20 22* CREATININE 0.49* 0.56 CALCIUM 9.2 9.6 PHOS -- 3.8 Recent Labs 05/11/20 0818 AST 11 ALT 8 BILITOT 0.4 ALKPHOS 62 No results for input(s): INR in the last 72 hours. No results for input(s): CKTOTAL, TROPONINI in the last 72 hours. Urinalysis: Lab Results Component Value Date NITRU NEGATIVE 04/30/2020 WBCUA 6 04/30/2020 BACTERIA 1+ 04/30/2020 BACTERIA MANY 04/30/2020 RBCUA >182 04/30/2020 BLOODU LARGE (3+) 04/30/2020 SPECGRAV 1.018 04/30/2020 GLUCOSEU 250 04/30/2020 GLUCOSEU NEG 10/14/2011 Radiology: XR CHEST PORTABLE Final Result Patchy opacities diffusely throughout both lungs, similar to prior. XR CHEST PORTABLE Final Result BILATERAL PNEUMONIA RADIOLOGY REPORT Final Result XR CHEST PORTABLE Final Result Interval improvement but persistence of bilateral pneumonia. US DUP LOWER EXTREMITIES BILATERAL VENOUS Final Result NO SONOGRAPHIC EVIDENCE OF DEEP VENOUS THROMBOSIS WITHIN THE BILATERAL LOWER EXTREMITIES. CTA Chest W WO (PE study) Final Result There are patchy alveolar opacities scattered throughout all segments of both lungs indicating pneumonia which may represent viral, COVID-19 pneumonia versus other etiologies. . No evidence of thoracic aortic dissection or aneurysm. The study is negative for pulmonary emboli. XR CHEST PORTABLE Final Result There are alveolar opacities which may represent early infiltrates, pneumonia. The differential includes COVID-19 pneumonia versus other etiologies Assessment/Plan: 44 y/o female with history of IDDM, morbid obesity admitted with: Acute hypoxic respiratory failure - due to COVID19 pneumonia - completed IV Remdesivir course - on decadron, SC Lovenox, HFNC - s/p transfusion of convalescent plasma - slowly improving, down to 5 liters of HFNC - management per ID and pulmonology DM2 with hyperglycemia - likely worsened from steroid use - required Insulin infusion initially - improved, infusion stopped - on Lantus, premeal coverage, ISS - managed by endocrinology Acute / chronic pain with opiate dependence - OARRS reviwed - has received multiple prescriptions of [facility] and percocet by multiple providers - on [facility] and Dilaudid PRN, lidocaine patch, ibuprofen, norflex per pain management Disposition - home in the next few days if able to wean down O2 requirement * Alvaro Newton MD - 05/12/2020 3:59 PM EST INPATIENT PROGRESS NOTES PATIENT NAME: Gisel Carlton SERVICE DATE: May 12, 2020 SERVICE TIME: 3:59 PM PRIMARY SERVICE: Pulmonary Disease CHIEF COMPLAINTS: COVID-19 pneumonia INTERVAL HPI: Patient seen and examined at bedside, Interval Notes, orders reviewed. Nursing notes noted Complains of chest pain and generalized pain, chest pain seems to be part of her generalized pain, similar to her initial Covid presentation. She requesting pain medication, short of breath, continues to require oxygen, no fever, no nausea no vomiting Review of system: GI Abdominal pain No Skin Rash No Social History Tobacco Use Smoking status: Never Smoker Smokeless tobacco: Never Used Substance Use Topics Alcohol use: No Problem Relation Age of Onset Heart Disease Father OBJECTIVE Body mass index is 42.76 kg/m . PHYSICAL EXAM: Vitals: BP (!) 119/56 Pulse 78 Temp 98.1 F (36.7 C) (Oral) Resp 20 Ht 5' 7 (1.702 m) Wt 273 lb (123.8 kg) LMP (LMP Unknown) SpO2 96% BMI 42.76 kg/m General: alert, cooperative, mild distress Head: normocephalic, atraumatic Eyes:No gross abnormalities. ENT: MMM no lesions Neck: supple and no masses Chest : Good air movement, no rales, no wheezing, nontender, tympanic Heart:: Heart sounds are normal. Regular rate and rhythm without murmur, gallop or rub. ABD: symmetric, soft, non-tender Musculoskeletal : no cyanosis, no clubbing and no edema Neuro: Grossly normal Skin: No rashes or nodules noted. Lymph node: no cervical nodes Urology: No [facility]: appropriate DATA: Recent Labs 05/11/20 0817 05/12/20 0745 WBC 6.4 6.6 HGB 12.6 13.0 HCT 37.9 38.1 MCV 83.2 82.0 PLT 313 346 Recent Labs 05/10/20 0735 05/11/20 0818 NA 139 136 K 3.7 3.9 CL 97 96 CO2 25 29 BUN 18 20 CREATININE 0.45* 0.49* GLUCOSE 119* 224* CALCIUM 9.4 9.2 PROT 7.1 6.4 LABALBU 3.3* 3.3* BILITOT 0.4 0.4 ALKPHOS 71 62 AST 16 11 ALT 9 8 LABGLOM >60.0 >60.0 GFRAA >60.0 >60.0 GLOB 3.8* 3.1 MV Settings: No results for input(s): PHART, OOQ3TTS, PO2ART, RTN3PQP, BEART, P7RQRBQJ in the last 72 hours. O2 Device: High flow nasal cannula O2 Flow Rate (L/min): 15 L/min Dietary Nutrition Supplements: Diabetic Oral Supplement DIET CARB CONTROL; Safety Tray; Safety Tray (Disposables) MEDICATIONS during current hospitalization: Continuous Infusions: dextrose dextrose 5 % and 0.45 % NaCl Stopped (05/07/20 1155) Scheduled Meds: insulin lispro 30 Units Subcutaneous TID WC insulin glargine 80 Units Subcutaneous Nightly vitamin D 50,000 Units Oral Weekly vitamin C 500 mg Oral Daily zinc sulfate 50 mg Oral Daily furosemide 40 mg Oral Daily insulin lispro 0-18 Units Subcutaneous TID WC insulin lispro 0-9 Units Subcutaneous Nightly lidocaine 1 patch Transdermal Daily metFORMIN 500 mg Oral BID WC metoprolol tartrate 25 mg Oral BID pantoprazole 40 mg Oral QAM AC rosuvastatin 20 mg Oral Daily sodium chloride flush 10 mL Intravenous 2 times per day enoxaparin 30 mg Subcutaneous BID dexamethasone 6 mg Oral Daily PRN Meds:HYDROmorphone, hydrOXYzine, HYDROcodone 5 mg - acetaminophen, glucose, dextrose, glucagon (rDNA), dextrose, albuterol sulfate HFA, benzonatate, tiZANidine, sodium chloride, dextrose 5 % and 0.45 % NaCl, sodium chloride flush, acetaminophen OR acetaminophen, polyethylene glycol, promethazine OR ondansetron, guaiFENesin-dextromethorphan, zolpidem Radiology Ct Abdomen Pelvis Wo Contrast Result Date: 04/30/2020 Patient Name: GISEL CARLTON STUDY: CT ABDOMEN AND PELVIS WO CONTRAST; 04/30/2020 10:48 am INDICATION: Right flank pain. COMPARISON: 03/01/2020 ACCESSION NUMBER(S): [id number] ORDERING CLINICIAN: MARGUERITE LONG TECHNIQUE: Contiguous axial images were obtained through the abdomen and pelvis without the use of contrast. Coronal and sagittal reconstructions were performed. FINDINGS: LOWER CHEST: Images through the lung bases demonstrate nonspecific ground-glass opacities as well as numerous nodular opacities, measuring up to 1.0 cm in size. These are nonspecific and may relate to an inf ectious/inflammatory process. However, follow-up is recommended to exclude the possibility of metastatic disease. ABDOMEN AND PELVIS: LIVER: 2.1 cm hypoattenuating lesion is seen within the medial segment of left hepatic lobe. This is indeterminate and will require further evaluation/follow-up. BILE DUCTS: Not abnormally dilated. GALLBLADDER: The gallbladder is surgically absent. PANCREAS: Appears unremarkable. SPLEEN: Appears unremarkable. ADRENAL GLANDS: Appear unremarkable. KIDNEYS, URETERS,AND BLADDER: 1 mm nonobstructing calculus in the upper pole the right kidney. No radiopaque calculinoted within the left kidney. No hydronephrosis. The urinary bladder appears grossly unremarkable. B OWEL: The small and large bowel are normal in caliber and demonstrate no wall thickening. There is no evidence of a bowel obstruction. Appendix is normal in caliber. Although CT has limited sensitivity and specificity for gastric pathology, the stomach appears grossly unremarkable. RETROPERITONEUM,VESSELS: There is no aneurysmal dilatation of the abdominal aorta. The IVC is within normal limits.No pathologically enlarged retroperitoneal lymph nodes are noted. PERITONEUM: There is no evidence of pneumoperitoneum. No ascites or loculated fluid collection noted. No pathologically enlarged mesenteric lymph nodes are identified. ABDOMINAL WALL, SOFT TISSUES: Postsurgical changes. No acute proce ss. SKELETON: Degenerative changes. IMPRESSION: No evidence of nephrolithiasis or hydronephrosis. No signs of obstructive uropathy. Nonspecific ground-glass opacities in the lungs with numerous nodular opacities, measuring up to 1.0 cm. The findings are nonspecific may relate to an infectious or inflammatory process. However, follow-up is recommended as metastatic disease cannot be excluded. Indeterminate 2.1 cm lesion in the medial segment of left hepatic lobe. Consider MRI for further evaluation. Electronically signed by: FELIPE MOFFETT MD Ct Abdomen Pelvis Wo Contrast Additional Contrast? None Result Date: 04/29/2020 CT of the Abdomen and Pelvis without intravenous contrast medium History: Left flank pain TechnicalFactors: CT imaging of the abdomen and pelvis were obtained and formatted as 5 mm contiguous axial images from the domes of the diaphragm to the symphysis pubis. Sagittal and coronal reconstructions were also obtained. Oral contrast medium: None. Intravenous contrast medium: None. Comparison: CT abdomen pelvis, February 17, 2020, January 14, 2020, July 09, 2019. Findings: Lungs: Bibasilar lower lobe subsegmental atelectatic change Liver: Normal in size, shape, and attenuation. Bile Ducts: Normal in caliber. Gallbladder: Gallbladder surgically absent. Pancreas: Normal without masses, cysts, ductal dilatation or calcification. Spleen: Normal in size without masses or calcifications. No splenules. Kidneys: Normal in size. 1 mm calculus upper pole right kidney. No right hydronephrosis or masses. Less than 1 mm calculus, lower pole left kidney. No hydronephrosis or masses. Adrenals: Normal. Small bowel: Normal in caliber. Appendix: Normal. Colon: Normal in caliber. Copious stool throughout colon. Peritoneum: No ascites, free air, or fluid collections. Vessels: Aorta normal in course and caliber. Lymph nodes: Retroperitoneal: No enlarged retroperitoneal lymph nodes. Mesenteric: No enlarged mesenteric lymph nodes. Pelvic: No enlarged pelvic lymph nodes. Ureters: Normal in course and caliber. No calcifications. Bladder: No wall thickening. Reproductive organs: Uterus surgically absent. Abdominal Wall: No hernia identified Bones: No bone lesions. No degenerative changes. No post operative changes. Nonobstructing bilateral renal calculi. Constipation. Cholecystectomy. Hysterectomy. All CT scans at this facility use dose modulation, iterative reconstruction, and/or weight based dosing when appropriate to reduce radiation dose to as low as reasonably achievable. Cta Chest W Wo (pe Study) Result Date: 05/05/2020 EXAM:CTA CHEST W WO CONTRAST DATE05/05/2020 11:06 AM: REASON FOR EXAM:Acute severe anterior chest wall pain. covid positive hypoxic COMPARISON: none Technique: Helical CT was performed through the chest following the IV administration of100 cc of nonionic contrast. 3-D MIP reconstructions were performed on an independent workstation in the coronal plane with thick slab technique utilized in the interpretation. 3-D maximum intensity projection performed. All CT scans at this facility use dose modulation, iterative reconstruction, and/or weight based dosing when appropriate to reduce radiation dose to as low as reasonably achievable. FINDINGS Mediastinum: Mediastinum and zohaib are normal. Thereare no pathologically enlarged lymph nodes. The chest wall and lower neck are normal Heart: The heart is within normal limits. There is no pericardial effusion. Vascular structures:There is no evidence for thoracic aortic aneurysm or dissection. No evidence of traumatic aortic injury. There is no evidence for pulmonary emboli. Lungs: There are patchy alveolar opacities scattered throughout all segments of both lungs. Pleura: No pleural effusion or thickening. Upper abdomen: The visualized portions of the upper abdomen are unremarkable. Bones/axillae/soft tissues: Osseous structures and chest wall are normal. There are patchy alveolar opacities scattered throughout all segments of both lungs indicating pneumonia which may represent viral, COVID-19 pneumonia versus other etiologies. . No evidence of thoracic aortic dissection or aneurysm. The study is negative for pulmonary emboli. Xr Chest Portable Result Date: 05/08/2020 EXAMINATION: XR CHEST PORTABLE CLINICAL HISTORY: HYPOXIA COMPARISONS: MAY 07, 2020 FINDINGS: Osseous structures intact. Cardiopericardial silhouette normal. A homogeneous area of increased opacity is found in the right upper lobe marginated inferiorly by the minor fissure with an ill-defined area of increased opacity identified in the right lower lobe. There is of increased opacity are also visualized in the left lower lung zone. BILATERAL PNEUMONIA Xr Chest Portable Result Date: 05/07/2020 Exam: XR CHEST PORTABLE History: Hypoxia. Code 19 pneumonia. Technique: AP portable view of the chest obtained. Comparison: Portable chest radiograph from May 05, 2020 Findings: The cardiomediastinal silhouette is within normal limits. Interval improvement but persistence of patchy bilateral airspace opacities. No pneumothorax or pleural effusion. No acute osseous abnormality. Interval improvement but persistence of bilateral pneumonia. Xr Chest Portable Result Date: 05/05/2020 Exam: XR CHEST PORTABLE History: cp Technique: AP portable view of the chest obtained. Comparison: None Findings: The cardiomediastinal silhouette is within normal limits. There are ill-defined patchy alveolar opacities in both lungs, left greater than right. Bones of the thorax appear intact. There are alveolar opacities which may represent early infiltrates, pneumonia. The differential includes COVID-19 pneumonia versus other etiologies Xr Chest Portable Result Date: 05/01/2020 EXAMINATION: CHEST PORTABLE VIEW CLINICAL HISTORY: Weakness, short of breath COMPARISONS: April 30, 2020 0740 hours FINDINGS: Single views of the chest is submitted. The cardiac silhouette is unchanged. . Pulmonary vascular unremarkable. Right sided trachea. Developing area of atelectasis, groundglass infiltrate left lower lobe. No Pneumothoraces. DEVELOPING AREA OF ATELECTASIS, GROUNDGLASS INFILTRATE LEFT LOWER LOBE Xr Chest Portable Result Date: 04/30/2020 Exam: XR CHEST PORTABLE History: cough Technique: AP portable view of the chest obtained. Comparison: None Findings: The cardiomediastinal silhouette is within normal limits. There are no infiltrates, consolidations or effusions. Bones of the thorax appear intact. No radiographic evidence of acute intrathoracic process. Us Dup Lower Extremities Bilateral Venous Result Date: 05/06/2020 VENOUS DUPLEX ULTRASOUND OF THE BILATERAL LOWER EXTREMITY CLINICAL HISTORY: COVID, r/o dvt COMPARISON: NONE AVAILABLE TECHNIQUE: Sonographic imaging of the deep venous system of the bilateral lower extremities was performed by a registered apparel sales leader and the images were submitted for interpretation. FINDINGS: The common femoral, superficial femoral, and popliteal veins demonstrate normal color flow, augmentation, and compressibility. No venous duplex ultrasound evidence of DVT in the bilaterallower extremities. NO SONOGRAPHIC EVIDENCE OF DEEP VENOUS THROMBOSIS WITHIN THE BILATERAL LOWER EXTREMITIES. Chest x-ray reviewed by me, shows bilateral groundglass infiltrates IMPRESSION AND SUGGESTION: Patient is at risk due to Acute hypoxic story failure COVID-19 pneumonia Volume overload, improved Hypercoagulable state Obesity Recommendation Continue remdesivir and dexamethasone O2 to keep sat 92 to 95%, wean off as tolerated Self proning as tolerated Current as needed pain medication, pain management consulted DVT prophylax Continue diuretics Pulmonary hygiene blood sugar control per primary team * Anamaria Lara RD, LD - 05/12/2020 2:05 PM EST Comprehensive Nutrition Assessment Type and Reason for Visit: Initial, RD Nutrition Re-Screen/LOS Nutrition Recommendations/Plan: Continue with Carb Control diet Added diabetic oral supplement x 3 until adequacy of oral intake determined Nutrition Assessment: Pt admitted with + COIVD 19, attempted to reach be phone without success, no intake documented since admission, will begin ONS until able to determine adequcy or oral intake Malnutrition Assessment: Malnutrition Status: Insufficient data Context: Acute Illness Findings of the 6 clinical characteristics of malnutrition: Energy Intake: Unable to assess Weight Loss: No significant weight loss Body Fat Loss: Unable to assess Muscle Mass Loss: Unable to assess Fluid Accumulation: No significant fluid accumulation 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 Strength: Not Performed Estimated Daily Nutrient Needs: Energy (kcal): 0178-1848 kcals @ 12-14 kcal/kg; Weight Used for Energy Requirements: Current(124 kg) Protein (g): ~122 g protein @ 2 g/kg IBW; Weight Used for Protein Requirements: Jones(61 kg) Fluid (ml/day): ~1800; Method Used for Fluid Requirements: 1 ml/kcal Nutrition Related Findings: gluc > 200 with steroids, no intake documented, pt did not answer phone when called Wounds: None Current Nutrition Therapies: Dietary Nutrition Supplements: Diabetic Oral Supplement DIET CARB CONTROL; Safety Tray; Safety Tray (Disposables) Anthropometric Measures: Height: 5' 7 (170.2 cm) Current Body Weight: 273 lb (123.8 kg) Admission Body Weight: 270 lb (122.5 kg) Usual Body Weight: 263 lb (119.3 kg)(07/18) Jones Body Weight: 135 lbs; % Jones Body Weight >100% BMI: 42.7 BMI Categories: Obese Class 3 (BMI 40.0 or greater) Nutrition Diagnosis: Predicted inadequate energy intake related to other (comment)(acute illness) as evidenced by other (comment)(+ COVID 19) Nutrition Interventions: Food and/or Nutrient Delivery: Continue Current Diet, Start Oral Nutrition Supplement Nutrition Education/Counseling: Education not indicated Coordination of Nutrition Care: Continue to monitor while inpatient Goals: po > 75%, gluc < 180 Nutrition Monitoring and Evaluation: Food/Nutrient Intake Outcomes: Food and Nutrient Intake, Supplement Intake Physical Signs/Symptoms Outcomes: Biochemical Data, Meal Time Behavior, Weight Discharge Planning: Too soon to determine * Trent Velasquez MD - 05/12/2020 12:17 PM EST Hospitalist Progress Note PCP: Skye Jones APRN - DIRECTOR OF PHOTOGRAPHY Date of Admission: 05/05/2020 Chief Complaint: Patient is saturating in the 90s on HFNC, afebrile, stable HD, Medications: Reviewed Infusion Medications dextrose dextrose 5 % and 0.45 % NaCl Stopped (05/07/20 1155) Scheduled Medications insulin lispro 30 Units Subcutaneous TID WC insulin glargine 80 Units Subcutaneous Nightly vitamin D 50,000 Units Oral Weekly vitamin C 500 mg Oral Daily zinc sulfate 50 mg Oral Daily furosemide 40 mg Oral Daily insulin lispro 0-18 Units Subcutaneous TID WC insulin lispro 0-9 Units Subcutaneous Nightly lidocaine 1 patch Transdermal Daily metFORMIN 500 mg Oral BID WC metoprolol tartrate 25 mg Oral BID pantoprazole 40 mg Oral QAM AC rosuvastatin 20 mg Oral Daily sodium chloride flush 10 mL Intravenous 2 times per day enoxaparin 30 mg Subcutaneous BID dexamethasone 6 mg Oral Daily PRN Meds: HYDROmorphone, hydrOXYzine, HYDROcodone 5 mg - acetaminophen, glucose, dextrose, glucagon(rDNA), dextrose, albuterol sulfate HFA, benzonatate, tiZANidine, sodium chloride, dextrose 5 % and0.45 % NaCl, sodium chloride flush, acetaminophen OR acetaminophen, polyethylene glycol, promethazine OR ondansetron, guaiFENesin-dextromethorphan, zolpidem No intake or output data in the 24 hours ending 05/12/20 1217 Exam: BP (!) 119/56 Pulse 78 Temp 98.1 F (36.7 C) (Oral) Resp 20 Ht 5' 7 (1.702 m) Wt 273 lb (123.8 kg) LMP (LMP Unknown) SpO2 96% BMI 42.76 kg/m General appearance: appears stated age and cooperative. Respiratory: Diminished BS bilaterally Cardiovascular: Regular rate and rhythm with normal S1S2 Abdomen: Soft, active bowel sounds. Musculoskeletal: No edema bilaterally. Labs: Recent Labs 05/10/20 0747 05/11/20 0817 05/12/20 0745 WBC 7.2 6.4 6.6 HGB 12.6 12.6 13.0 HCT 36.9* 37.9 38.1 PLT 277 313 346 Recent Labs 05/10/20 0735 05/11/20 0818 NA 139 136 K 3.7 3.9 CL 97 96 CO2 25 29 BUN 18 20 CREATININE 0.45* 0.49* CALCIUM 9.4 9.2 Recent Labs 05/10/20 0735 05/11/20 0818 AST 16 11 ALT 9 8 BILITOT 0.4 0.4 ALKPHOS 71 62 No results for input(s): INR in the last 72 hours. No results for input(s): CKTOTAL, TROPONINI in the last 72 hours. Urinalysis: Lab Results Component Value Date NITRU NEGATIVE 04/30/2020 WBCUA 6 04/30/2020 BACTERIA 1+ 04/30/2020 BACTERIA MANY 04/30/2020 RBCUA >182 04/30/2020 BLOODU LARGE (3+) 04/30/2020 SPECGRAV 1.018 04/30/2020 GLUCOSEU 250 04/30/2020 GLUCOSEU NEG 10/14/2011 Radiology: XR CHEST PORTABLE Final Result BILATERAL PNEUMONIA RADIOLOGY REPORT Final Result XR CHEST PORTABLE Final Result Interval improvement but persistence of bilateral pneumonia. US DUP LOWER EXTREMITIES BILATERAL VENOUS Final Result NO SONOGRAPHIC EVIDENCE OF DEEP VENOUS THROMBOSIS WITHIN THE BILATERAL LOWER EXTREMITIES. CTA Chest W WO (PE study) Final Result There are patchy alveolar opacities scattered throughout all segments of both lungs indicating pneumonia which may represent viral, COVID-19 pneumonia versus other etiologies. . No evidence of thoracic aortic dissection or aneurysm. The study is negative for pulmonary emboli. XR CHEST PORTABLE Final Result There are alveolar opacities which may represent early infiltrates, pneumonia. The differential includes COVID-19 pneumonia versus other etiologies Assessment/Plan: 44 y/o female with history of IDDM, morbid obesity admitted with: Acute hypoxic respiratory failure - due to COVID19 pneumonia - completed IV Remdesivir course - on decadron, SC Lovenox, HFNC - s/p transfusion of convalescent plasma - slowly improving, down to 6 liters of HFNC - management per ID and pulmonology DM2 with hyperglycemia - likely worsened from steroid use - required Insulin infusion initially - improved, infusion stopped - on Lantus, premeal coverage, ISS - managed by endocrinology Acute / chronic pain with opiate dependence - OARRS reviwed - has received multiple prescriptions of [facility] and percocet by multiple providers - on [facility] PRN, is allergic to Toradol - pain management consulted Disposition - home in the next few days if able to wean down O2 requirement * Marlin Hernandez P, DO - 05/12/2020 7:32 AM EST Infectious Disease Progress Note 05/12/2020 Patient is a followup regarding COVID-19 pneumonia done with IV remdesivir on 05/10, on high flow oxygen and weaning down. Now started on 5L NC S/P 2 units of convalescent plasma on 05/07 Hx of DM2 with Hemoglobin A1C of >11 Lab Results Component Value Date WBC 6.4 05/11/2020 HGB 12.6 05/11/2020 HCT 37.9 05/11/2020 MCV 83.2 05/11/2020 PLT 313 05/11/2020 Lab Results Component Value Date NA 136 05/11/2020 K 3.9 05/11/2020 K 3.6 05/07/2020 CL 96 05/11/2020 CO2 29 05/11/2020 BUN 20 05/11/2020 CREATININE 0.49 05/11/2020 GLUCOSE 224 05/11/2020 GLUCOSE 240 04/30/2020 CALCIUM 9.2 05/11/2020 WBC trends are being monitored. Antibiotic doses are being adjusted per most recent renal labs. Vitals: 05/12/20 0445 BP: 133/79 Pulse: 71 Resp: Temp: 97.4 F (36.3 C) SpO2: Patient Active Problem List Diagnosis Headache Uncontrolled type 2 diabetes mellitus with complication, with long-term current use of insulin (HCC) Hyperlipidemia GERD (gastroesophageal reflux disease) Recurrent kidney stones Chest pain Steatosis of liver Hypertension Adiposity Tubular adenoma Flank pain Torticollis Diabetic polyneuropathy (HCC) Chronic abdominal pain Chronic lower back pain Opiate use Umbilical hernia without obstruction and without gangrene Acquired absence of other specified parts of digestive tract 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 Complains of generalized pain, shortness of breath, inability to take deep breaths without exacerbating her pain. Neck supple Heart S1 S2 Lungs chest equal rise and fall, no cough Abdomen non-distended, non-tender Extrem: no new significant findings. No joint swelling that is apparent Skin: no new rash Neuro: makes eye contact, verbalizes ASSESSMENT/ PLAN: COVID 19 pneumonia Generalized nonspecific pain Uncontrolled DM2 O2 support and weaning Encourage patient to get into chair - increasingly deconditioned. Imaging and labs were reviewed per medical records and any ID pertinent labs were also addressed Risks and benefits of ID related medications addressed Social distancing measures, the importance of face masks that properly cover the nose and mouth in public, proper hand hygiene, and the importance of continued healthcare follow ups with primary carephysicians and specialists emphasized. Marlin Hernandez DO * Giulia Coker RN - 05/12/2020 6:10 AM EST Pt. Continues to complain of chest and back pain that is relieved with Dilaudid, and [facility]. She says pain is not new or changed since admission. Repositioning and rest implemented. Dr. chavarria aware. No distress noted. * Cruz Quan MD - 05/11/2020 10:29 PM EST Progress Note Date:05/11/2020 Room:[place] [address] Patient Name:Gisel Carlton Date of :1975 Age:44 y.o. Chief complaint uncontrolled diabetes Subjective Subjective: Symptoms: Stable. She reports shortness of breath and weakness. Diet: Adequate intake. Activity level: Returning to normal. Review of Systems Respiratory: Positive for shortness of breath. Neurological: Positive for weakness. Objective Vitals Last 24 Hours: TEMPERATURE: Temp Av.7 F (36.5 C) Min: 97.3 F (36.3 C) Max: 98.1 F (36.7 C) RESPIRATIONS RANGE: Resp Av.5 Min: 20 Max: 21 PULSE OXIMETRY RANGE: SpO2 Av.5 % Min: 93 % Max: 96 % PULSE RANGE: Pulse Av.5 Min: 82 Max: 87 BLOOD PRESSURE RANGE: Systolic (24hrs), Av , Min:117 , Max:130 ; Diastolic (24hrs), Av, Min:67, Max:77 I/O (24Hr): No intake or output data in the 24 hours ending 05/11/202228 Objective: Vital signs: (most recent): Blood pressure 117/67, pulse 87, temperature 98.1 F (36.7 C), resp. rate 21, height 5' 7 (1.702 m), weight 273 lb (123.8 kg), SpO2 93 %, not currently . Vital signs are normal. Labs/Imaging/Diagnostics Labs: CBC: Recent Labs 05/09/20 0703 05/10/20 0747 05/11/20 0817 WBC 5.4 7.2 6.4 RBC 4.32 4.55 4.55 HGB 12.0 12.6 12.6 HCT 35.5* 36.9* 37.9 MCV 82.3 81.2* 83.2 RDW 14.1 14.2 14.2 PLT 260 277 313 CHEMISTRIES: Recent Labs 05/09/20 0703 05/10/20 0735 05/11/20 0818 NA 139 139 136 K 3.3* 3.7 3.9 CL 101 97 96 CO2 25 25 29 BUN 16 18 20 CREATININE 0.39* 0.45* 0.49* GLUCOSE 204* 119* 224* MG 1.7 1.7 1.7 PT/INR:No results for input(s): PROTIME, INR in the last 72 hours. APTT:No results for input(s): APTT in the last 72 hours. LIVER PROFILE: Recent Labs 05/09/20 0703 05/10/20 0735 05/11/20 0818 AST 13 16 11 ALT 9 9 8 BILITOT 0.4 0.4 0.4 ALKPHOS 73 71 62 Imaging Last 24 Hours: No results found. Assessment//Plan Hospital Problems Last Modified POA COVID-19 virus infection 05/05/2020 Yes Uncontrolled type 2 diabetes mellitus with hyperglycemia (HCC) 05/07/2020 Yes Assessment: Condition: In stable condition. Improving. (Uncontrolled type 2 diabetes blood sugars are still high Patient on remdesivir on steroids Pneumonia secondary to Covid Hypoxia on 6 L oxygen). Plan: (Increase Lantus to 80 units at bedtime plus Humalog 30 units with each meals Continue Metformin 500 mg twice daily Monitor glycemic control closely Continue steroids and remdesivir as per pulmonary/infectious disease Virtual visit spoke to patient on the phone). * Trent Velasquez MD - 05/11/2020 1:25 PM EST Hospitalist Progress Note PCP: Skye Jones APRN - DIRECTOR OF PHOTOGRAPHY Date of Admission: 05/05/2020 Chief Complaint: Patient is saturating in the 90s on HFNC, afebrile, stable HD, Medications: Reviewed Infusion Medications dextrose dextrose 5 % and 0.45 % NaCl Stopped (05/07/20 1155) Scheduled Medications vitamin D 50,000 Units Oral Weekly vitamin C 500 mg Oral Daily zinc sulfate 50 mg Oral Daily insulin glargine 60 Units Subcutaneous Nightly insulin lispro 24 Units Subcutaneous TID WC furosemide 40 mg Oral Daily insulin lispro 0-18 Units Subcutaneous TID WC insulin lispro 0-9 Units Subcutaneous Nightly lidocaine 1 patch Transdermal Daily metFORMIN 500 mg Oral BID WC metoprolol tartrate 25 mg Oral BID pantoprazole 40 mg Oral QAM AC rosuvastatin 20 mg Oral Daily sodium chloride flush 10 mL Intravenous 2 times per day enoxaparin 30 mg Subcutaneous BID dexamethasone 6 mg Oral Daily PRN Meds: hydrOXYzine, HYDROcodone 5 mg - acetaminophen, glucose, dextrose, glucagon (rDNA), dextrose, albuterol sulfate HFA, benzonatate, tiZANidine, sodium chloride, dextrose 5 % and 0.45 % NaCl, sodium chloride flush, acetaminophen OR acetaminophen, polyethylene glycol, promethazine OR on dansetron, guaiFENesin-dextromethorphan, zolpidem No intake or output data in the 24 hours ending 05/11/20 1325 Exam: BP 130/77 Pulse 82 Temp 97.3 F (36.3 C) (Oral) Resp 20 Ht 5' 7 (1.702 m) Wt 273 lb (123.8 kg) LMP (LMP Unknown) SpO2 96% BMI 42.76 kg/m General appearance: appears stated age and cooperative. Respiratory: Diminished BS bilaterally Cardiovascular: Regular rate and rhythm with normal S1S2 Abdomen: Soft, active bowel sounds. Musculoskeletal: No edema bilaterally. Labs: Recent Labs 05/09/20 0703 05/10/20 0747 05/11/20 0817 WBC 5.4 7.2 6.4 HGB 12.0 12.6 12.6 HCT 35.5* 36.9* 37.9 PLT 260 277 313 Recent Labs 05/09/20 0703 05/10/20 0735 05/11/20 0818 NA 139 139 136 K 3.3* 3.7 3.9 CL 101 97 96 CO2 25 25 29 BUN 16 18 20 CREATININE 0.39* 0.45* 0.49* CALCIUM 8.7 9.4 9.2 Recent Labs 05/09/20 0703 05/10/20 0735 05/11/20 0818 AST 13 16 11 ALT 9 9 8 BILITOT 0.4 0.4 0.4 ALKPHOS 73 71 62 No results for input(s): INR in the last 72 hours. No results for input(s): CKTOTAL, TROPONINI in the last 72 hours. Urinalysis: Lab Results Component Value Date NITRU NEGATIVE 04/30/2020 WBCUA 6 04/30/2020 BACTERIA 1+ 04/30/2020 BACTERIA MANY 04/30/2020 RBCUA >182 04/30/2020 BLOODU LARGE (3+) 04/30/2020 SPECGRAV 1.018 04/30/2020 GLUCOSEU 250 04/30/2020 GLUCOSEU NEG 10/14/2011 Radiology: XR CHEST PORTABLE Final Result BILATERAL PNEUMONIA RADIOLOGY REPORT Final Result XR CHEST PORTABLE Final Result Interval improvement but persistence of bilateral pneumonia. US DUP LOWER EXTREMITIES BILATERAL VENOUS Final Result NO SONOGRAPHIC EVIDENCE OF DEEP VENOUS THROMBOSIS WITHIN THE BILATERAL LOWER EXTREMITIES. CTA Chest W WO (PE study) Final Result There are patchy alveolar opacities scattered throughout all segments of both lungs indicating pneumonia which may represent viral, COVID-19 pneumonia versus other etiologies. . No evidence of thoracic aortic dissection or aneurysm. The study is negative for pulmonary emboli. XR CHEST PORTABLE Final Result There are alveolar opacities which may represent early infiltrates, pneumonia. The differential includes COVID-19 pneumonia versus other etiologies Assessment/Plan: 44 y/o female with history of IDDM, morbid obesity admitted with: Acute hypoxic respiratory failure - due to COVID19 pneumonia - completed IV Remdesivir course - on decadron, SC Lovenox, HFNC - s/p transfusion of convalescent plasma - management per ID and pulmonology DM2 with hyperglycemia >600 - likely worsened from steroid use - requiring Insulin infusion - improved, infusion stopped - started on Lantus, premeal coverage, ISS - managed by endocrinology Hypophosphatemia - replaced Acute / chronic pain with opiate dependence - OARRS reviwed - has received multiple prescriptions of [facility] and percocet by multiple providers - on [facility] PRN, is allergic to Toradol * Alvaro Newton MD - 05/11/2020 1:00 PM EST INPATIENT PROGRESS NOTES PATIENT NAME: Gisel Carlton SERVICE DATE: May 11, 2020 SERVICE TIME: 1:00 PM PRIMARY SERVICE: Pulmonary Disease CHIEF COMPLAINTS: COVID-19 pneumonia INTERVAL HPI: Patient seen and examined at bedside, Interval Notes, orders reviewed. Nursing notes noted Feels better, shortness of breath improving, no chest pain, no nausea no vomiting currently on 12 LO2 saturation 96%. No diarrhea, slept well Review of system: GI Abdominal pain No Skin Rash No Social History Tobacco Use Smoking status: Never Smoker Smokeless tobacco: Never Used Substance Use Topics Alcohol use: No Problem Relation Age of Onset Heart Disease Father OBJECTIVE Body mass index is 42.76 kg/m . PHYSICAL EXAM: Vitals: BP 130/77 Pulse 82 Temp 97.3 F (36.3 C) (Oral) Resp 20 Ht 5' 7 (1.702 m) Wt 273 lb (123.8 kg) LMP (LMP Unknown) SpO2 96% BMI 42.76 kg/m General: alert, cooperative, mild distress Head: normocephalic, atraumatic Eyes:No gross abnormalities. ENT: MMM no lesions Neck: supple and no masses Chest : Good air movement, no rales, no wheezing, nontender, tympanic Heart:: Heart sounds are normal. Regular rate and rhythm without murmur, gallop or rub. ABD: symmetric, soft, non-tender Musculoskeletal : no cyanosis, no clubbing and no edema Neuro: Grossly normal Skin: No rashes or nodules noted. Lymph node: no cervical nodes Urology: No [facility]: appropriate DATA: Recent Labs 05/10/20 0747 05/11/20 0817 WBC 7.2 6.4 HGB 12.6 12.6 HCT 36.9* 37.9 MCV 81.2* 83.2 PLT 277 313 Recent Labs 05/10/20 0735 05/11/20 0818 NA 139 136 K 3.7 3.9 CL 97 96 CO2 25 29 BUN 18 20 CREATININE 0.45* 0.49* GLUCOSE 119* 224* CALCIUM 9.4 9.2 PROT 7.1 6.4 LABALBU 3.3* 3.3* BILITOT 0.4 0.4 ALKPHOS 71 62 AST 16 11 ALT 9 8 LABGLOM >60.0 >60.0 GFRAA >60.0 >60.0 GLOB 3.8* 3.1 MV Settings: No results for input(s): PHART, CRY1JLW, PO2ART, MWI4DVV, BEART, T7NLFAMG in the last 72 hours. O2 Device: High flow nasal cannula O2 Flow Rate (L/min): 12 L/min Dietary Nutrition Supplements: Diabetic Oral Supplement DIET CARB CONTROL; Safety Tray; Safety Tray (Disposables) MEDICATIONS during current hospitalization: Continuous Infusions: dextrose dextrose 5 % and 0.45 % NaCl Stopped (05/07/20 1155) Scheduled Meds: vitamin D 50,000 Units Oral Weekly vitamin C 500 mg Oral Daily zinc sulfate 50 mg Oral Daily insulin glargine 60 Units Subcutaneous Nightly insulin lispro 24 Units Subcutaneous TID WC furosemide 40 mg Oral Daily insulin lispro 0-18 Units Subcutaneous TID WC insulin lispro 0-9 Units Subcutaneous Nightly lidocaine 1 patch Transdermal Daily metFORMIN 500 mg Oral BID WC metoprolol tartrate 25 mg Oral BID pantoprazole 40 mg Oral QAM AC rosuvastatin 20 mg Oral Daily sodium chloride flush 10 mL Intravenous 2 times per day enoxaparin 30 mg Subcutaneous BID dexamethasone 6 mg Oral Daily PRN Meds:hydrOXYzine, HYDROcodone 5 mg - acetaminophen, glucose, dextrose, glucagon (rDNA), dextrose, albuterol sulfate HFA, benzonatate, tiZANidine, sodium chloride, dextrose 5 % and 0.45 % NaCl, sodium chloride flush, acetaminophen OR acetaminophen, polyethylene glycol, promethazine OR ond ansetron, guaiFENesin-dextromethorphan, zolpidem Radiology Ct Abdomen Pelvis Wo Contrast Result Date: 04/30/2020 Patient Name: GISEL CARLTON STUDY: CT ABDOMEN AND PELVIS WO CONTRAST; 04/30/2020 10:48 am INDICATION: Right flank pain. COMPARISON: 03/01/2020 ACCESSION NUMBER(S): [id number] ORDERING CLINICIAN: MARGUERITE LONG TECHNIQUE: Contiguous axial images were obtained through the abdomen and pelvis without the use of contrast. Coronal and sagittal reconstructions were performed. FINDINGS: LOWER CHEST: Images through the lung bases demonstrate nonspecific ground-glass opacities as well as numerous nodular opacities, measuring up to 1.0 cm in size. These are nonspecific and may relate to an inf ectious/inflammatory process. However, follow-up is recommended to exclude the possibility of metastatic disease. ABDOMEN AND PELVIS: LIVER: 2.1 cm hypoattenuating lesion is seen within the medial segment of left hepatic lobe. This is indeterminate and will require further evaluation/follow-up. BILE DUCTS: Not abnormally dilated. GALLBLADDER: The gallbladder is surgically absent. PANCREAS: Appears unremarkable. SPLEEN: Appears unremarkable. ADRENAL GLANDS: Appear unremarkable. KIDNEYS, URETERS,AND BLADDER: 1 mm nonobstructing calculus in the upper pole the right kidney. No radiopaque calculinoted within the left kidney. No hydronephrosis. The urinary bladder appears grossly unremarkable. B OWEL: The small and large bowel are normal in caliber and demonstrate no wall thickening. There is no evidence of a bowel obstruction. Appendix is normal in caliber. Although CT has limited sensitivity and specificity for gastric pathology, the stomach appears grossly unremarkable. RETROPERITONEUM,VESSELS: There is no aneurysmal dilatation of the abdominal aorta. The IVC is within normal limits.No pathologically enlarged retroperitoneal lymph nodes are noted. PERITONEUM: There is no evidence of pneumoperitoneum. No ascites or loculated fluid collection noted. No pathologically enlarged mesenteric lymph nodes are identified. ABDOMINAL WALL, SOFT TISSUES: Postsurgical changes. No acute proce ss. SKELETON: Degenerative changes. IMPRESSION: No evidence of nephrolithiasis or hydronephrosis. No signs of obstructive uropathy. Nonspecific ground-glass opacities in the lungs with numerous nodular opacities, measuring up to 1.0 cm. The findings are nonspecific may relate to an infectious or inflammatory process. However, follow-up is recommended as metastatic disease cannot be excluded. Indeterminate 2.1 cm lesion in the medial segment of left hepatic lobe. Consider MRI for further evaluation. Electronically signed by: FELIPE MOFFETT MD Ct Abdomen Pelvis Wo Contrast Additional Contrast? None Result Date: 04/29/2020 CT of the Abdomen and Pelvis without intravenous contrast medium History: Left flank pain TechnicalFactors: CT imaging of the abdomen and pelvis were obtained and formatted as 5 mm contiguous axial images from the domes of the diaphragm to the symphysis pubis. Sagittal and coronal reconstructions were also obtained. Oral contrast medium: None. Intravenous contrast medium: None. Comparison: CT abdomen pelvis, February 17, 2020, January 14, 2020, July 09, 2019. Findings: Lungs: Bibasilar lower lobe subsegmental atelectatic change Liver: Normal in size, shape, and attenuation. Bile Ducts: Normal in caliber. Gallbladder: Gallbladder surgically absent. Pancreas: Normal without masses, cysts, ductal dilatation or calcification. Spleen: Normal in size without masses or calcifications. No splenules. Kidneys: Normal in size. 1 mm calculus upper pole right kidney. No right hydronephrosis or masses. Less than 1 mm calculus, lower pole left kidney. No hydronephrosis or masses. Adrenals: Normal. Small bowel: Normal in caliber. Appendix: Normal. Colon: Normal in caliber. Copious stool throughout colon. Peritoneum: No ascites, free air, or fluid collections. Vessels: Aorta normal in course and caliber. Lymph nodes: Retroperitoneal: No enlarged retroperitoneal lymph nodes. Mesenteric: No enlarged mesenteric lymph nodes. Pelvic: No enlarged pelvic lymph nodes. Ureters: Normal in course and caliber. No calcifications. Bladder: No wall thickening. Reproductive organs: Uterus surgically absent. Abdominal Wall: No hernia identified Bones: No bone lesions. No degenerative changes. No post operative changes. Nonobstructing bilateral renal calculi. Constipation. Cholecystectomy. Hysterectomy. All CT scans at this facility use dose modulation, iterative reconstruction, and/or weight based dosing when appropriate to reduce radiation dose to as low as reasonably achievable. Cta Chest W Wo (pe Study) Result Date: 05/05/2020 EXAM:CTA CHEST W WO CONTRAST DATE05/05/2020 11:06 AM: REASON FOR EXAM:Acute severe anterior chest wall pain. covid positive hypoxic COMPARISON: none Technique: Helical CT was performed through the chest following the IV administration of100 cc of nonionic contrast. 3-D MIP reconstructions were performed on an independent workstation in the coronal plane with thick slab technique utilized in the interpretation. 3-D maximum intensity projection performed. All CT scans at this facility use dose modulation, iterative reconstruction, and/or weight based dosing when appropriate to reduce radiation dose to as low as reasonably achievable. FINDINGS Mediastinum: Mediastinum and zohaib are normal. Thereare no pathologically enlarged lymph nodes. The chest wall and lower neck are normal Heart: The heart is within normal limits. There is no pericardial effusion. Vascular structures:There is no evidence for thoracic aortic aneurysm or dissection. No evidence of traumatic aortic injury. There is no evidence for pulmonary emboli. Lungs: There are patchy alveolar opacities scattered throughout all segments of both lungs. Pleura: No pleural effusion or thickening. Upper abdomen: The visualized portions of the upper abdomen are unremarkable. Bones/axillae/soft tissues: Osseous structures and chest wall are normal. There are patchy alveolar opacities scattered throughout all segments of both lungs indicating pneumonia which may represent viral, COVID-19 pneumonia versus other etiologies. . No evidence of thoracic aortic dissection or aneurysm. The study is negative for pulmonary emboli. Xr Chest Portable Result Date: 05/08/2020 EXAMINATION: XR CHEST PORTABLE CLINICAL HISTORY: HYPOXIA COMPARISONS: MAY 07, 2020 FINDINGS: Osseous structures intact. Cardiopericardial silhouette normal. A homogeneous area of increased opacity is found in the right upper lobe marginated inferiorly by the minor fissure with an ill-defined area of increased opacity identified in the right lower lobe. There is of increased opacity are also visualized in the left lower lung zone. BILATERAL PNEUMONIA Xr Chest Portable Result Date: 05/07/2020 Exam: XR CHEST PORTABLE History: Hypoxia. Code 19 pneumonia. Technique: AP portable view of the chest obtained. Comparison: Portable chest radiograph from May 05, 2020 Findings: The cardiomediastinal silhouette is within normal limits. Interval improvement but persistence of patchy bilateral airspace opacities. No pneumothorax or pleural effusion. No acute osseous abnormality. Interval improvement but persistence of bilateral pneumonia. Xr Chest Portable Result Date: 05/05/2020 Exam: XR CHEST PORTABLE History: cp Technique: AP portable view of the chest obtained. Comparison: None Findings: The cardiomediastinal silhouette is within normal limits. There are ill-defined patchy alveolar opacities in both lungs, left greater than right. Bones of the thorax appear intact. There are alveolar opacities which may represent early infiltrates, pneumonia. The differential includes COVID-19 pneumonia versus other etiologies Xr Chest Portable Result Date: 05/01/2020 EXAMINATION: CHEST PORTABLE VIEW CLINICAL HISTORY: Weakness, short of breath COMPARISONS: April 30, 2020 0740 hours FINDINGS: Single views of the chest is submitted. The cardiac silhouette is unchanged. . Pulmonary vascular unremarkable. Right sided trachea. Developing area of atelectasis, groundglass infiltrate left lower lobe. No Pneumothoraces. DEVELOPING AREA OF ATELECTASIS, GROUNDGLASS INFILTRATE LEFT LOWER LOBE Xr Chest Portable Result Date: 04/30/2020 Exam: XR CHEST PORTABLE History: cough Technique: AP portable view of the chest obtained. Comparison: None Findings: The cardiomediastinal silhouette is within normal limits. There are no infiltrates, consolidations or effusions. Bones of the thorax appear intact. No radiographic evidence of acute intrathoracic process. Us Dup Lower Extremities Bilateral Venous Result Date: 05/06/2020 VENOUS DUPLEX ULTRASOUND OF THE BILATERAL LOWER EXTREMITY CLINICAL HISTORY: COVID, r/o dvt COMPARISON: NONE AVAILABLE TECHNIQUE: Sonographic imaging of the deep venous system of the bilateral lower extremities was performed by a registered apparel sales leader and the images were submitted for interpretation. FINDINGS: The common femoral, superficial femoral, and popliteal veins demonstrate normal color flow, augmentation, and compressibility. No venous duplex ultrasound evidence of DVT in the bilaterallower extremities. NO SONOGRAPHIC EVIDENCE OF DEEP VENOUS THROMBOSIS WITHIN THE BILATERAL LOWER EXTREMITIES. IMPRESSION AND SUGGESTION: Patient is at risk due to Acute hypoxic story failure COVID-19 pneumonia Volume overload, improved Hypercoagulable state Obesity Recommendation Continue remdesivir and dexamethasone O2 to keep sat 92 to 95%, wean off as tolerated Self proning as tolerated DVT prophylax Continue diuretics Pulmonary hygiene blood sugar control per primary team * Marcella Robins MD - 05/11/2020 11:29 AM EST Infectious Diseases Inpatient Progress Note HISTORY OF PRESENT ILLNESS: Follow up for COVID-19 pneumonia on IV remdesivir, well tolerated. Patient has decreased shortness of breath, dry cough, poor appetite and chest soreness. Currently on high flow oxygen at 8 L. S/P 2 unit of convalescent plasma on 05/07. less anxious. feeling better. Resolved nausea. Current Medications: vitamin D 50,000 Units Oral Weekly vitamin C 500 mg Oral Daily zinc sulfate 50 mg Oral Daily insulin glargine 60 Units Subcutaneous Nightly insulin lispro 24 Units Subcutaneous TID WC furosemide 40 mg Oral Daily insulin lispro 0-18 Units Subcutaneous TID WC insulin lispro 0-9 Units Subcutaneous Nightly lidocaine 1 patch Transdermal Daily metFORMIN 500 mg Oral BID WC metoprolol tartrate 25 mg Oral BID pantoprazole 40 mg Oral QAM AC rosuvastatin 20 mg Oral Daily sodium chloride flush 10 mL Intravenous 2 times per day enoxaparin 30 mg Subcutaneous BID dexamethasone 6 mg Oral Daily Allergies: Fentanyl; Pcn [penicillins]; Demerol; Morphine; Nubain [nalbuphine hcl]; Aspirin; Ciprofloxacin; and Ketorolac tromethamine Review of Systems 14 system review is negative other than HPI Physical Exam Vitals: 05/09/20 2035 05/10/20 0838 05/10/20 1824 05/11/20 0251 BP: (!) 145/88 106/65 137/66 130/77 Pulse: 89 85 77 82 Resp: Temp: 98.1 F (36.7 C) 99.1 F (37.3 C) 97.3 F (36.3 C) TempSrc: Oral Oral Oral SpO2: 95% 98% 96% Weight: Height: General Appearance: alert and oriented to person, place and time, well-developed and well-nourished, in no acute distress, on high flow oxygen 8 L Skin: warm and dry, no rash. Head: normocephalic and atraumatic Eyes: extraocular eye movements intact, conjunctivae normal, anicteric sclerae ENT: oropharynx clear and moist with normal mucous membranes. No thrush Lungs: normal respiratory effort, no rales, diminished breath sounds Heart:RRR, nl S1/S2, no murmur Abdomen: soft, obese, no tenderness, no H-S-megaly, + BS NEUROLOGICAL: alert and oriented x 3, no focal deficits No leg edema No erythema, no warmth, no tenderness DATA: Lab Results Component Value Date WBC 6.4 05/11/2020 HGB 12.6 05/11/2020 HCT 37.9 05/11/2020 MCV 83.2 05/11/2020 PLT 313 05/11/2020 Lab Results Component Value Date CREATININE 0.49 (L) 05/11/2020 BUN 20 05/11/2020 NA 136 05/11/2020 K 3.9 05/11/2020 CL 96 05/11/2020 CO2 29 05/11/2020 Hepatic Function Panel: Lab Results Component Value Date ALKPHOS 62 05/11/2020 ALT 8 05/11/2020 AST 11 05/11/2020 PROT 6.4 05/11/2020 BILITOT 0.4 05/11/2020 BILIDIR 0.0 11/09/2019 IBILI see below 04/17/2019 LABALBU 3.3 05/11/2020 LABALBU 4.7 04/05/2020 FINDINGS: Osseous structures intact. Cardiopericardial silhouette normal. A homogeneous area of increased opacity is found in the right upper lobe marginated inferiorly by the minor fissure with an ill-defined area of increased opacity identified in the right lower lobe. There is of increased opacity are also visualized in the left lower lung zone. Impression BILATERAL PNEUMONIA 05/09/2020 8:25 AM - Hemant, Chpo Incoming Lab Results From Soft Component Value Ref Range & Units Status Collected Lab D-Dimer, Quant 0.87High Panic 0.00 - 0.50 IMPRESSION: Severe COVID-19 pneumonia Acute respiratory failure with hypoxia, improving Hypercoagulable state Uncontrolled diabetes mellitus type 2 with hemoglobin A1c of 11.6 Patient Active Problem List Diagnosis Headache Uncontrolled type 2 diabetes mellitus with complication, with long-term current use of insulin (HCC) Hyperlipidemia GERD (gastroesophageal reflux disease) Recurrent kidney stones Chest pain Steatosis of liver Hypertension Adiposity Tubular adenoma Flank pain Torticollis Diabetic polyneuropathy (HCC) Chronic abdominal pain Chronic lower back pain Opiate use Umbilical hernia without obstruction and without gangrene Acquired absence of other specified parts of digestive tract 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 Chief complaint uncontrolled diabetes Subjective Subjective: Symptoms: Stable. She reports shortness of breath. Diet: Adequate intake. Review of Systems Constitutional: Positive for fatigue. Respiratory: Positive for shortness of breath. All other systems reviewed and are negative. Objective Vitals Last 24 Hours: TEMPERATURE: Temp Av.6 F (37 C) Min: 98.1 F (36.7 C) Max: 99.1 F (37.3 C) RESPIRATIONS RANGE: Resp Av Min: 18 Max: 20 PULSE OXIMETRY RANGE: SpO2 Av.5 % Min: 95 % Max: 98 % PULSE RANGE: Pulse Av Min: 77 Max: 85 BLOOD PRESSURE RANGE: Systolic (24hrs), Av , Min:106 , Max:137 ; Diastolic (24hrs), Av, Min:65, Max:66 I/O (24Hr): No intake or output data in the 24 hours ending 05/10/20 1192 Objective: Vital signs: (most recent): Blood pressure 137/66, pulse 77, temperature 99.1 F (37.3 C), temperature source Oral, resp. rate 18, height 5' 7 (1.702 m), weight 273 lb (123.8 kg), SpO2 98 %, not currently . Vital signs are normal. Results for GISEL CARLTON ( ) as of 05/10/2020 23:17 Ref. Range 05/10/2020 08:39 05/10/2020 12:53 05/10/2020 15:57 05/10/2020 21:30 POC Glucose Latest Ref Range: 60 - 115 mg/dl 119 (H) 248 (H) 340 (H) 358 (H) Labs/Imaging/Diagnostics Labs: CBC: Recent Labs 05/08/20 0701 05/09/20 0703 05/10/20 0747 WBC 4.8 5.4 7.2 RBC 4.46 4.32 4.55 HGB 12.1 12.0 12.6 HCT 36.7* 35.5* 36.9* MCV 82.3 82.3 81.2* RDW 14.2 14.1 14.2 PLT 241 260 277 CHEMISTRIES: Recent Labs 05/08/20 0701 05/09/20 0703 05/10/20 0735 NA 136 139 139 K 3.7 3.3* 3.7 CL 100 101 97 CO2 25 25 25 BUN 15 16 18 CREATININE 0.51 0.39* 0.45* GLUCOSE 169* 204* 119* MG 1.8 1.7 1.7 PT/INR:No results for input(s): PROTIME, INR in the last 72 hours. APTT:No results for input(s): APTT in the last 72 hours. LIVER PROFILE: Recent Labs 05/08/20 0701 05/09/20 0703 05/10/20 0735 AST 18 13 16 ALT 10 9 9 BILITOT 0.3 0.4 0.4 ALKPHOS 68 73 71 Imaging Last 24 Hours: No results found. Assessment//Plan Hospital Problems Last Modified POA COVID-19 virus infection 05/05/2020 Yes Uncontrolled type 2 diabetes mellitus with hyperglycemia (HCC) 05/07/2020 Yes Assessment: Condition: In stable condition. Unchanged. (Uncontrolled type 2 diabetes with fluctuating glucose worsened with steroids COVID-19 infection pneumonia Obesity). Plan: (Increase Lantus to 60 units at bedtime Humalog 24 units with each meals plus sliding scale coverage Continue with Decadron and remdesivir oxygen supportive measures Spoke to patient on the phone Virtual visit ). * Alvaro Newton MD - 05/10/2020 3:57 PM EST INPATIENT PROGRESS NOTES PATIENT NAME: Gisel Carlton SERVICE DATE: May 10, 2020 SERVICE TIME: 3:57 PM PRIMARY SERVICE: Pulmonary Disease CHIEF COMPLAINTS: COVID-19 pneumonia INTERVAL HPI: Patient seen and examined at bedside, Interval Notes, orders reviewed. Nursing notes noted Feeling better, still requiring high flow oxygen, saturating 90 to 95%, no chest pain, no fever, nonausea no vomiting Review of system: GI Abdominal pain No Skin Rash No Social History Tobacco Use Smoking status: Never Smoker Smokeless tobacco: Never Used Substance Use Topics Alcohol use: No Problem Relation Age of Onset Heart Disease Father OBJECTIVE Body mass index is 42.76 kg/m . PHYSICAL EXAM: Vitals: BP 106/65 Pulse 85 Temp 98.1 F (36.7 C) (Oral) Resp 20 Ht 5' 7 (1.702 m) Wt 273 lb (123.8 kg) LMP (LMP Unknown) SpO2 95% BMI 42.76 kg/m General: alert, cooperative, mild distress Head: normocephalic, atraumatic Eyes:No gross abnormalities. ENT: MMM no lesions Neck: supple and no masses Chest : Good air movement, mild rales, no wheezing, nontender, tympanic Heart:: Heart sounds are normal. Regular rate and rhythm without murmur, gallop or rub. ABD: symmetric, soft, non-tender Musculoskeletal : no cyanosis, no clubbing and no edema Neuro: Grossly normal Skin: No rashes or nodules noted. Lymph node: no cervical nodes Urology: No [facility]: appropriate DATA: Recent Labs 05/09/20 0703 05/10/20 0747 WBC 5.4 7.2 HGB 12.0 12.6 HCT 35.5* 36.9* MCV 82.3 81.2* PLT 260 277 Recent Labs 05/09/20 0703 05/10/20 0735 NA 139 139 K 3.3* 3.7 CL 101 97 CO2 25 25 BUN 16 18 CREATININE 0.39* 0.45* GLUCOSE 204* 119* CALCIUM 8.7 9.4 PROT 6.6 7.1 LABALBU 3.4* 3.3* BILITOT 0.4 0.4 ALKPHOS 73 71 AST 13 16 ALT 9 9 LABGLOM >60.0 >60.0 GFRAA >60.0 >60.0 GLOB 3.2 3.8* MV Settings: Recent Labs 05/07/20 1623 PHART 7.456* BHV3HGT 32* PO2ART 48* YSE2NLK 22.6 BEART -1 [id number] 86* O2 Device: High flow nasal cannula O2 Flow Rate (L/min): 14 L/min Dietary Nutrition Supplements: Diabetic Oral Supplement DIET CARB CONTROL; Safety Tray; Safety Tray (Disposables) MEDICATIONS during current hospitalization: Continuous Infusions: dextrose dextrose 5 % and 0.45 % NaCl Stopped (05/07/20 6225) Scheduled Meds: vitamin D 50,000 Units Oral Weekly vitamin C 500 mg Oral Daily zinc sulfate 50 mg Oral Daily insulin glargine 40 Units Subcutaneous Nightly insulin lispro 16 Units Subcutaneous TID furosemide 40 mg Oral Daily insulin lispro 0-18 Units Subcutaneous TID insulin lispro 0-9 Units Subcutaneous Nightly lidocaine 1 patch Transdermal Daily metFORMIN 500 mg Oral BID WC metoprolol tartrate 25 mg Oral BID pantoprazole 40 mg Oral QAM AC rosuvastatin 20 mg Oral Daily remdesivir IVPB 100 mg Intravenous Q24H sodium chloride flush 10 mL Intravenous 2 times per day enoxaparin 30 mg Subcutaneous BID dexamethasone 6 mg Oral Daily PRN Meds:HYDROmorphone, hydrOXYzine, HYDROcodone 5 mg - acetaminophen, glucose, dextrose, glucagon (rDNA), dextrose, albuterol sulfate HFA, benzonatate, tiZANidine, sodium chloride, dextrose 5 % and 0.45 % NaCl, sodium chloride flush, acetaminophen OR acetaminophen, polyethylene glycol, promethazine OR ondansetron, guaiFENesin-dextromethorphan, zolpidem Radiology Ct Abdomen Pelvis Wo Contrast Result Date: 04/30/2020 Patient Name: GISEL CARLTON STUDY: CT ABDOMEN AND PELVIS WO CONTRAST; 04/30/2020 10:48 am INDICATION: Right flank pain. COMPARISON: 03/01/2020 ACCESSION NUMBER(S): [id number] ORDERING CLINICIAN: MARGUERITE LONG TECHNIQUE: Contiguous axial images were obtained through the abdomen and pelvis without the use of contrast. Coronal and sagittal reconstructions were performed. FINDINGS: LOWER CHEST: Images through the lung bases demonstrate nonspecific ground-glass opacities as well as numerous nodular opacities, measuring up to 1.0 cm in size. These are nonspecific and may relate to an inf ectious/inflammatory process. However, follow-up is recommended to exclude the possibility of metastatic disease. ABDOMEN AND PELVIS: LIVER: 2.1 cm hypoattenuating lesion is seen within the medial segment of left hepatic lobe. This is indeterminate and will require further evaluation/follow-up. BILE DUCTS: Not abnormally dilated. GALLBLADDER: The gallbladder is surgically absent. PANCREAS: Appears unremarkable. SPLEEN: Appears unremarkable. ADRENAL GLANDS: Appear unremarkable. KIDNEYS, URETERS,AND BLADDER: 1 mm nonobstructing calculus in the upper pole the right kidney. No radiopaque calculinoted within the left kidney. No hydronephrosis. The urinary bladder appears grossly unremarkable. B OWEL: The small and large bowel are normal in caliber and demonstrate no wall thickening. There is no evidence of a bowel obstruction. Appendix is normal in caliber. Although CT has limited sensitivity and specificity for gastric pathology, the stomach appears grossly unremarkable. RETROPERITONEUM,VESSELS: There is no aneurysmal dilatation of the abdominal aorta. The IVC is within normal limits.No pathologically enlarged retroperitoneal lymph nodes are noted. PERITONEUM: There is no evidence of pneumoperitoneum. No ascites or loculated fluid collection noted. No pathologically enlarged mesenteric lymph nodes are identified. ABDOMINAL WALL, SOFT TISSUES: Postsurgical changes. No acute proce ss. SKELETON: Degenerative changes. IMPRESSION: No evidence of nephrolithiasis or hydronephrosis. No signs of obstructive uropathy. Nonspecific ground-glass opacities in the lungs with numerous nodular opacities, measuring up to 1.0 cm. The findings are nonspecific may relate to an infectious or inflammatory process. However, follow-up is recommended as metastatic disease cannot be excluded. Indeterminate 2.1 cm lesion in the medial segment of left hepatic lobe. Consider MRI for further evaluation. Electronically signed by: FELIPE MOFFETT MD Ct Abdomen Pelvis Wo Contrast Additional Contrast? None Result Date: 04/29/2020 CT of the Abdomen and Pelvis without intravenous contrast medium History: Left flank pain TechnicalFactors: CT imaging of the abdomen and pelvis were obtained and formatted as 5 mm contiguous axial images from the domes of the diaphragm to the symphysis pubis. Sagittal and coronal reconstructions were also obtained. Oral contrast medium: None. Intravenous contrast medium: None. Comparison: CT abdomen pelvis, February 17, 2020, January 14, 2020, July 09, 2019. Findings: Lungs: Bibasilar lower lobe subsegmental atelectatic change Liver: Normal in size, shape, and attenuation. Bile Ducts: Normal in caliber. Gallbladder: Gallbladder surgically absent. Pancreas: Normal without masses, cysts, ductal dilatation or calcification. Spleen: Normal in size without masses or calcifications. No splenules. Kidneys: Normal in size. 1 mm calculus upper pole right kidney. No right hydronephrosis or masses. Less than 1 mm calculus, lower pole left kidney. No hydronephrosis or masses. Adrenals: Normal. Small bowel: Normal in caliber. Appendix: Normal. Colon: Normal in caliber. Copious stool throughout colon. Peritoneum: No ascites, free air, or fluid collections. Vessels: Aorta normal in course and caliber. Lymph nodes: Retroperitoneal: No enlarged retroperitoneal lymph nodes. Mesenteric: No enlarged mesenteric lymph nodes. Pelvic: No enlarged pelvic lymph nodes. Ureters: Normal in course and caliber. No calcifications. Bladder: No wall thickening. Reproductive organs: Uterus surgically absent. Abdominal Wall: No hernia identified Bones: No bone lesions. No degenerative changes. No post operative changes. Nonobstructing bilateral renal calculi. Constipation. Cholecystectomy. Hysterectomy. All CT scans at this facility use dose modulation, iterative reconstruction, and/or weight based dosing when appropriate to reduce radiation dose to as low as reasonably achievable. Cta Chest W Wo (pe Study) Result Date: 05/05/2020 EXAM:CTA CHEST W WO CONTRAST DATE05/05/2020 11:06 AM: REASON FOR EXAM:Acute severe anterior chest wall pain. covid positive hypoxic COMPARISON: none Technique: Helical CT was performed through the chest following the IV administration of100 cc of nonionic contrast. 3-D MIP reconstructions were performed on an independent workstation in the coronal plane with thick slab technique utilized in the interpretation. 3-D maximum intensity projection performed. All CT scans at this facility use dose modulation, iterative reconstruction, and/or weight based dosing when appropriate to reduce radiation dose to as low as reasonably achievable. FINDINGS Mediastinum: Mediastinum and zohaib are normal. Thereare no pathologically enlarged lymph nodes. The chest wall and lower neck are normal Heart: The heart is within normal limits. There is no pericardial effusion. Vascular structures:There is no evidence for thoracic aortic aneurysm or dissection. No evidence of traumatic aortic injury. There is no evidence for pulmonary emboli. Lungs: There are patchy alveolar opacities scattered throughout all segments of both lungs. Pleura: No pleural effusion or thickening. Upper abdomen: The visualized portions of the upper abdomen are unremarkable. Bones/axillae/soft tissues: Osseous structures and chest wall are normal. There are patchy alveolar opacities scattered throughout all segments of both lungs indicating pneumonia which may represent viral, COVID-19 pneumonia versus other etiologies. . No evidence of thoracic aortic dissection or aneurysm. The study is negative for pulmonary emboli. Xr Chest Portable Result Date: 05/08/2020 EXAMINATION: XR CHEST PORTABLE CLINICAL HISTORY: HYPOXIA COMPARISONS: MAY 07, 2020 FINDINGS: Osseous structures intact. Cardiopericardial silhouette normal. A homogeneous area of increased opacity is found in the right upper lobe marginated inferiorly by the minor fissure with an ill-defined area of increased opacity identified in the right lower lobe. There is of increased opacity are also visualized in the left lower lung zone. BILATERAL PNEUMONIA Xr Chest Portable Result Date: 05/07/2020 Exam: XR CHEST PORTABLE History: Hypoxia. Code 19 pneumonia. Technique: AP portable view of the chest obtained. Comparison: Portable chest radiograph from May 05, 2020 Findings: The cardiomediastinal silhouette is within normal limits. Interval improvement but persistence of patchy bilateral airspace opacities. No pneumothorax or pleural effusion. No acute osseous abnormality. Interval improvement but persistence of bilateral pneumonia. Xr Chest Portable Result Date: 05/05/2020 Exam: XR CHEST PORTABLE History: cp Technique: AP portable view of the chest obtained. Comparison: None Findings: The cardiomediastinal silhouette is within normal limits. There are ill-defined patchy alveolar opacities in both lungs, left greater than right. Bones of the thorax appear intact. There are alveolar opacities which may represent early infiltrates, pneumonia. The differential includes COVID-19 pneumonia versus other etiologies Xr Chest Portable Result Date: 05/01/2020 EXAMINATION: CHEST PORTABLE VIEW CLINICAL HISTORY: Weakness, short of breath COMPARISONS: April 30, 2020 0740 hours FINDINGS: Single views of the chest is submitted. The cardiac silhouette is unchanged. . Pulmonary vascular unremarkable. Right sided trachea. Developing area of atelectasis, groundglass infiltrate left lower lobe. No Pneumothoraces. DEVELOPING AREA OF ATELECTASIS, GROUNDGLASS INFILTRATE LEFT LOWER LOBE Xr Chest Portable Result Date: 04/30/2020 Exam: XR CHEST PORTABLE History: cough Technique: AP portable view of the chest obtained. Comparison: None Findings: The cardiomediastinal silhouette is within normal limits. There are no infiltrates, consolidations or effusions. Bones of the thorax appear intact. No radiographic evidence of acute intrathoracic process. Us Dup Lower Extremities Bilateral Venous Result Date: 05/06/2020 VENOUS DUPLEX ULTRASOUND OF THE BILATERAL LOWER EXTREMITY CLINICAL HISTORY: COVID, r/o dvt COMPARISON: NONE AVAILABLE TECHNIQUE: Sonographic imaging of the deep venous system of the bilateral lower extremities was performed by a registered apparel sales leader and the images were submitted for interpretation. FINDINGS: The common femoral, superficial femoral, and popliteal veins demonstrate normal color flow, augmentation, and compressibility. No venous duplex ultrasound evidence of DVT in the bilaterallower extremities. NO SONOGRAPHIC EVIDENCE OF DEEP VENOUS THROMBOSIS WITHIN THE BILATERAL LOWER EXTREMITIES. IMPRESSION AND SUGGESTION: Patient is at risk due to Acute hypoxic story failure COVID-19 pneumonia Volume overload, improved Hypercoagulable state Obesity Recommendation Continue remdesivir and dexamethasone O2 to keep sat 92 to 95% Self proning as tolerated DVT prophylax Continue diuretics Pulmonary hygiene * Trent Velasquez MD - 05/10/2020 1:54 PM EST Hospitalist Progress Note PCP: Skye Jones APRN - DIRECTOR OF PHOTOGRAPHY Date of Admission: 05/05/2020 Chief Complaint: Patient is saturating in the 90s on HFNC, afebrile, stable HD, Medications: Reviewed Infusion Medications dextrose dextrose 5 % and 0.45 % NaCl Stopped (05/07/20 1155) Scheduled Medications vitamin D 50,000 Units Oral Weekly vitamin C 500 mg Oral Daily zinc sulfate 50 mg Oral Daily insulin glargine 40 Units Subcutaneous Nightly insulin lispro 16 Units Subcutaneous TID WC furosemide 40 mg Oral Daily insulin lispro 0-18 Units Subcutaneous TID WC insulin lispro 0-9 Units Subcutaneous Nightly lidocaine 1 patch Transdermal Daily metFORMIN 500 mg Oral BID WC metoprolol tartrate 25 mg Oral BID pantoprazole 40 mg Oral QAM AC rosuvastatin 20 mg Oral Daily remdesivir IVPB 100 mg Intravenous Q24H sodium chloride flush 10 mL Intravenous 2 times per day enoxaparin 30 mg Subcutaneous BID dexamethasone 6 mg Oral Daily PRN Meds: hydrOXYzine, HYDROcodone 5 mg - acetaminophen, glucose, dextrose, glucagon (rDNA), dextrose, albuterol sulfate HFA, benzonatate, tiZANidine, sodium chloride, dextrose 5 % and 0.45 % NaCl, sodium chloride flush, acetaminophen OR acetaminophen, polyethylene glycol, promethazine OR on dansetron, guaiFENesin-dextromethorphan, zolpidem No intake or output data in the 24 hours ending 05/10/20 1354 Exam: BP 106/65 Pulse 85 Temp 98.1 F (36.7 C) (Oral) Resp 20 Ht 5' 7 (1.702 m) Wt 273 lb (123.8 kg) LMP (LMP Unknown) SpO2 95% BMI 42.76 kg/m General appearance: appears stated age and cooperative. Respiratory: Diminished BS bilaterally Cardiovascular: Regular rate and rhythm with normal S1S2 Abdomen: Soft, active bowel sounds. Musculoskeletal: No edema bilaterally. Labs: Recent Labs 05/08/20 0701 05/09/20 0703 05/10/20 0747 WBC 4.8 5.4 7.2 HGB 12.1 12.0 12.6 HCT 36.7* 35.5* 36.9* PLT 241 260 277 Recent Labs 05/07/20 1619 05/08/20 0701 05/09/20 0703 05/10/20 0735 NA 139 -- 136 139 139 K 4.3 -- 3.7 3.3* 3.7 CL 106 -- 100 101 97 CO2 19* -- 25 25 25 BUN 19 -- 15 16 18 CREATININE 0.60 < > 0.51 0.39* 0.45* CALCIUM 8.9 -- 8.5 8.7 9.4 PHOS 2.3 -- -- -- -- < > = values in this interval not displayed. Recent Labs 05/08/20 0701 05/09/20 0703 05/10/20 0735 AST 18 13 16 ALT 10 9 9 BILITOT 0.3 0.4 0.4 ALKPHOS 68 73 71 No results for input(s): INR in the last 72 hours. No results for input(s): CKTOTAL, TROPONINI in the last 72 hours. Urinalysis: Lab Results Component Value Date NITRU NEGATIVE 04/30/2020 WBCUA 6 04/30/2020 BACTERIA 1+ 04/30/2020 BACTERIA MANY 04/30/2020 RBCUA >182 04/30/2020 BLOODU LARGE (3+) 04/30/2020 SPECGRAV 1.018 04/30/2020 GLUCOSEU 250 04/30/2020 GLUCOSEU NEG 10/14/2011 Radiology: XR CHEST PORTABLE Final Result BILATERAL PNEUMONIA RADIOLOGY REPORT Final Result XR CHEST PORTABLE Final Result Interval improvement but persistence of bilateral pneumonia. US DUP LOWER EXTREMITIES BILATERAL VENOUS Final Result NO SONOGRAPHIC EVIDENCE OF DEEP VENOUS THROMBOSIS WITHIN THE BILATERAL LOWER EXTREMITIES. CTA Chest W WO (PE study) Final Result There are patchy alveolar opacities scattered throughout all segments of both lungs indicating pneumonia which may represent viral, COVID-19 pneumonia versus other etiologies. . No evidence of thoracic aortic dissection or aneurysm. The study is negative for pulmonary emboli. XR CHEST PORTABLE Final Result There are alveolar opacities which may represent early infiltrates, pneumonia. The differential includes COVID-19 pneumonia versus other etiologies Assessment/Plan: 44 y/o female with history of IDDM, morbid obesity admitted with: Acute hypoxic respiratory failure - due to COVID19 pneumonia - on IV Remdesivir, decadron, SC Lovenox, O2 therapy - s/p transfusion of convalescent plasma - management per ID and pulmonology DM2 with hyperglycemia >600 - likely worsened from steroid use - requiring Insulin infusion - improved, infusion stopped - started on Lantus, premeal coverage, ISS - managed by endocrinology Hypophosphatemia - replaced Acute / chronic pain with opiate dependence - OARRS reviwed - has received multiple prescriptions of [facility] and percocet by multiple providers - on [facility] PRN, is allergic to Toradol * Marcella Robins MD - 05/10/2020 12:17 PM EST Infectious Diseases Inpatient Progress Note HISTORY OF PRESENT ILLNESS: Follow up for COVID-19 pneumonia on IV remdesivir, well tolerated. Patient has persistent shortness of breath, dry cough, poor appetite and chest soreness. Currently on high flow oxygen at 14 L. S/P 2 unit of convalescent plasma on 05/07. less anxious. Helping to feel little bit better. Resolved nausea. Current Medications: insulin lispro 22 Units Subcutaneous TID WC furosemide 40 mg Oral Daily insulin glargine 50 Units Subcutaneous Nightly insulin lispro 0-18 Units Subcutaneous TID WC insulin lispro 0-9 Units Subcutaneous Nightly lidocaine 1 patch Transdermal Daily metFORMIN 500 mg Oral BID WC metoprolol tartrate 25 mg Oral BID pantoprazole 40 mg Oral QAM AC rosuvastatin 20 mg Oral Daily remdesivir IVPB 100 mg Intravenous Q24H sodium chloride flush 10 mL Intravenous 2 times per day enoxaparin 30 mg Subcutaneous BID dexamethasone 6 mg Oral Daily Allergies: Fentanyl; Pcn [penicillins]; Demerol; Morphine; Nubain [nalbuphine hcl]; Aspirin; Ciprofloxacin; and Ketorolac tromethamine Review of Systems 14 system review is negative other than HPI Physical Exam Vitals: 05/09/20 0745 05/09/20 0844 05/09/20 2035 05/10/20 0838 BP: 127/66 (!) 145/88 106/65 Pulse: 81 78 89 85 Resp: Temp: 97.9 F (36.6 C) 98.1 F (36.7 C) TempSrc: Oral SpO2: 93% 95% Weight: Height: General Appearance: alert and oriented to person, place and time, well-developed and well-nourished, in no acute distress, on high flow oxygen 14 L Skin: warm and dry, no rash. Head: normocephalic and atraumatic Eyes: extraocular eye movements intact, conjunctivae normal, anicteric sclerae ENT: oropharynx clear and moist with normal mucous membranes. No thrush Lungs: normal respiratory effort, no rales, diminished breath sounds Heart:RRR, nl S1/S2, no murmur Abdomen: soft, obese, no tenderness, no H-S-megaly, + BS NEUROLOGICAL: alert and oriented x 3, no focal deficits No leg edema No erythema, no warmth, no tenderness DATA: Lab Results Component Value Date WBC 7.2 05/10/2020 HGB 12.6 05/10/2020 HCT 36.9 (L) 05/10/2020 MCV 81.2 (L) 05/10/2020 PLT 277 05/10/2020 Lab Results Component Value Date CREATININE 0.45 (L) 05/10/2020 BUN 18 05/10/2020 NA 139 05/10/2020 K 3.7 05/10/2020 CL 97 05/10/2020 CO2 25 05/10/2020 Hepatic Function Panel: Lab Results Component Value Date ALKPHOS 71 05/10/2020 ALT 9 05/10/2020 AST 16 05/10/2020 PROT 7.1 05/10/2020 BILITOT 0.4 05/10/2020 BILIDIR 0.0 11/09/2019 IBILI see below 04/17/2019 LABALBU 3.3 05/10/2020 LABALBU 4.7 04/05/2020 FINDINGS: Osseous structures intact. Cardiopericardial silhouette normal. A homogeneous area of increased opacity is found in the right upper lobe marginated inferiorly by the minor fissure with an ill-defined area of increased opacity identified in the right lower lobe. There is of increased opacity are also visualized in the left lower lung zone. Impression BILATERAL PNEUMONIA 05/09/2020 8:25 AM - Hemant, Chpo Incoming Lab Results From Soft Component Value Ref Range & Units Status Collected Lab D-Dimer, Quant 0.87High Panic 0.00 - 0.50 IMPRESSION: Severe COVID-19 pneumonia Acute respiratory failure with hypoxia Hypercoagulable state Uncontrolled diabetes mellitus type 2 with hemoglobin A1c of 11.6 Patient Active Problem List Diagnosis Headache Uncontrolled type 2 diabetes mellitus with complication, with long-term current use of insulin (HCC) Hyperlipidemia GERD (gastroesophageal reflux disease) Recurrent kidney stones Chest pain Steatosis of liver Hypertension Adiposity Tubular adenoma Flank pain Torticollis Diabetic polyneuropathy (HCC) Chronic abdominal pain Chronic lower back pain Opiate use Umbilical hernia without obstruction and without gangrene Acquired absence of other specified parts of digestive tract 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) Pure hypercholesterolemia, unspecified Acute hyperglycemia Recurrent sinusitis Acute exacerbation of Chronic right flank pain Muscular pain in the flank region COVID-19 virus infection Uncontrolled type 2 diabetes mellitus with hyperglycemia (HCC) PLAN: Encourage patient to get out of bed Done with IV remdesivir 05/10 Oxygen support and weaning as tolerated Follow-up CBC complete metabolic profile Lasix 40 daily Vitamin D, C Zinc Discussed with patient, RN Marcella Robins MD * Cruz Quan MD - 05/09/2020 10:35 PM EST Progress Note Date:05/09/2020 Room:W567/W567-01 Patient Name:Gisel Carlton Date of :1975 Age:44 y.o. Chief complaint uncontrolled type 2 diabetes Subjective Subjective: Symptoms: Stable. She reports shortness of breath. Review of Systems Constitutional: Positive for fatigue. Respiratory: Positive for shortness of breath. All other systems reviewed and are negative. Objective Vitals Last 24 Hours: TEMPERATURE: Temp Av.6 F (36.4 C) Min: 97.3 F (36.3 C) Max: 97.9 F (36.6 C) RESPIRATIONS RANGE: Resp Av Min: 20 Max: 20 PULSE OXIMETRY RANGE: SpO2 Av.7 % Min: 93 % Max: 95 % PULSE RANGE: Pulse Av.5 Min: 78 Max: 89 BLOOD PRESSURE RANGE: Systolic (24hrs), Av , Min:100 , Max:145 ; Diastolic (24hrs), Av, Min:66, Max:88 I/O (24Hr): No intake or output data in the 24 hours ending 05/09/202234 Objective: Vital signs: (most recent): Blood pressure (!) 145/88, pulse 89, temperature 97.9 F (36.6 C), resp.rate 20, height 5' 7 (1.702 m), weight 273 lb (123.8 kg), SpO2 93 %, not currently . Vital signs are normal. Results for GISEL CARLTON ( ) as of 05/09/2020 22:36 Ref. Range 05/09/2020 07:03 05/09/2020 07:44 05/09/2020 11:44 05/09/2020 16:49 05/09/2020 20:49 Sodium Latest Ref Range: 135 - 144 mEq/L 139 Potassium Latest Ref Range: 3.4 - 4.9 mEq/L 3.3 (L) Chloride Latest Ref Range: 95 - 107 mEq/L 101 CO2 Latest Ref Range: 20 - 31 mEq/L 25 BUN Latest Ref Range: 6 - 20 mg/dL 16 Creatinine Latest Ref Range: 0.50 - 0.90 mg/dL 0.39 (L) Anion Gap Latest Ref Range: 9 - 15 mEq/L 13 GFR Non- Latest Ref Range: >60 >60.0 GFR Latest Ref Range: >60 >60.0 Magnesium Latest Ref Range: 1.7 - 2.4 mg/dL 1.7 Glucose Latest Ref Range: 70 - 99 mg/dL 204 (H) POC Glucose Latest Ref Range: 60 - 115 mg/dl 196 (H) 222 (H) 298 (H) 266 (H) Calcium Latest Ref Range: 8.5 - 9.9 mg/dL 8.7 Total Protein Latest Ref Range: 6.3 - 8.0 g/dL 6.6 CRP, High Sensitivity Latest Ref Range: 0.0 - 5.0 mg/L 41.6 (H) Albumin Latest Ref Range: 3.5 - 4.6 g/dL 3.4 (L) Globulin Latest Ref Range: 2.3 - 3.5 g/dL 3.2 Alk Phos Latest Ref Range: 40 - 130 U/L 73 ALT Latest Ref Range: 0 - 33 U/L 9 AST Latest Ref Range: 0 - 35 U/L 13 Bilirubin Latest Ref Range: 0.2 - 0.7 mg/dL 0.4 Labs/Imaging/Diagnostics Labs: CBC: Recent Labs 05/07/20 04105/07/20 1623 05/08/20 0701 05/09/20 0703 WBC 5.0 -- 4.8 5.4 RBC 4.46 -- 4.46 4.32 HGB 12.3 12.3 12.1 12.0 HCT 36.9* -- 36.7* 35.5* MCV 82.8 -- 82.3 82.3 RDW 14.6* -- 14.2 14.1 PLT 264 -- 241 260 CHEMISTRIES: Recent Labs 05/07/20 0825 05/07/20 1143 05/07/20 1619 05/07/20 1623 05/08/20 0701 05/09/20 0703 NA 134* 136 139 -- 136 139 K 3.9 4.1 4.3 -- 3.7 3.3* CL 103 102 106 -- 100 101 CO2 22 24 19* -- 25 25 BUN 16 16 19 -- 15 16 CREATININE 0.47* 0.61 0.60 0.6 0.51 0.39* GLUCOSE 123* 158* 396* -- 169* 204* PHOS 1.3* 1.3* 2.3 -- -- -- MG 2.0 1.8 -- -- 1.8 1.7 Recent Labs 05/07/20 0410 05/08/20 0701 05/09/20 0703 AST 18 18 13 ALT 11 10 9 BILITOT <0.2 0.3 0.4 ALKPHOS 67 68 73 Imaging Last 24 Hours: Xr Chest Portable Result Date: 05/08/2020 EXAMINATION: XR CHEST PORTABLE CLINICAL HISTORY: HYPOXIA COMPARISONS: MAY 07, 2020 FINDINGS: Osseous structures intact. Cardiopericardial silhouette normal. A homogeneous area of increased opacity is found in the right upper lobe marginated inferiorly by the minor fissure with an ill-defined area of increased opacity identified in the right lower lobe. There is of increased opacity are also visualized in the left lower lung zone. BILATERAL PNEUMONIA Assessment//Plan Hospital Problems Last Modified POA COVID-19 virus infection 05/05/2020 Yes Uncontrolled type 2 diabetes mellitus with hyperglycemia (HCC) 05/07/2020 Yes Assessment: Condition: In serious condition. Unchanged. (Uncontrolled type 2 diabetes Covid 19 infection/pneumonia Hypoxia on high flow oxygen). Plan: (Continue Lantus 50 units at bedtime plus Humalog 22 units with each meals plus high-dose Humalog coverage Continue Decadron and IV remdesivir for Covid pneumonia Spoke to the patient on the phone Reviewed infectious disease and pulmonary notes Virtual visit total time spent was 25 minutes including review of labs notes). * Alvaro Newton MD - 05/09/2020 5:23 PM EST INPATIENT PROGRESS NOTES PATIENT NAME: Gisel Carlton SERVICE DATE: May 09, 2020 SERVICE TIME: 5:23 PM PRIMARY SERVICE: Pulmonary Disease CHIEF COMPLAINTS: COVID-19 pneumonia INTERVAL HPI: Patient seen and examined at bedside, Interval Notes, orders reviewed. Nursing notes noted Patient report shortness of breath, mainly exertional, still on high flow nasal cannula, 15 L, sat 93%, no fever, no chest pain, no nausea no vomiting Review of system: GI Abdominal pain No Skin Rash No Social History Tobacco Use Smoking status: Never Smoker Smokeless tobacco: Never Used Substance Use Topics Alcohol use: No Problem Relation Age of Onset Heart Disease Father OBJECTIVE Body mass index is 42.76 kg/m . PHYSICAL EXAM: Vitals: BP 127/66 Pulse 78 Temp 97.9 F (36.6 C) Resp 20 Ht 5' 7 (1.702 m) Wt 273 lb (123.8 kg) LMP (LMP Unknown) SpO2 93% BMI 42.76 kg/m General: alert, cooperative, mild distress Head: normocephalic, atraumatic Eyes:No gross abnormalities. ENT: MMM no lesions Neck: supple and no masses Chest : Diffuse crackles, no wheezing, nontender, tympanic Heart:: Heart sounds are normal. Regular rate and rhythm without murmur, gallop or rub. ABD: symmetric, soft, non-tender Musculoskeletal : no cyanosis, no clubbing and no edema Neuro: Grossly normal Skin: No rashes or nodules noted. Lymph node: no cervical nodes Urology: No [facility]: appropriate DATA: Recent Labs 05/08/20 0701 05/09/20 0703 WBC 4.8 5.4 HGB 12.1 12.0 HCT 36.7* 35.5* MCV 82.3 82.3 PLT 241 260 Recent Labs 05/08/20 0701 05/09/20 0703 NA 136 139 K 3.7 3.3* CL 100 101 CO2 25 25 BUN 15 16 CREATININE 0.51 0.39* GLUCOSE 169* 204* CALCIUM 8.5 8.7 PROT 6.8 6.6 LABALBU 3.2* 3.4* BILITOT 0.3 0.4 ALKPHOS 68 73 AST 18 13 ALT 10 9 LABGLOM >60.0 >60.0 GFRAA >60.0 >60.0 GLOB 3.6* 3.2 MV Settings: Recent Labs 05/07/20 1623 PHART 7.456* ULE1XUS 32* PO2ART 48* [id number] 22.6 BEART -1 [id number] 86* O2 Device: High flow nasal cannula O2 Flow Rate (L/min): 14 L/min Dietary Nutrition Supplements: Diabetic Oral Supplement DIET CARB CONTROL; Safety Tray; Safety Tray (Disposables) MEDICATIONS during current hospitalization: Continuous Infusions: dextrose dextrose 5 % and 0.45 % NaCl Stopped (05/07/20 1155) Scheduled Meds: insulin lispro 22 Units Subcutaneous TID WC furosemide 40 mg Oral Daily insulin glargine 50 Units Subcutaneous Nightly insulin lispro 0-18 Units Subcutaneous TID WC insulin lispro 0-9 Units Subcutaneous Nightly lidocaine 1 patch Transdermal Daily metFORMIN 500 mg Oral BID WC metoprolol tartrate 25 mg Oral BID pantoprazole 40 mg Oral QAM AC rosuvastatin 20 mg Oral Daily remdesivir IVPB 100 mg Intravenous Q24H sodium chloride flush 10 mL Intravenous 2 times per day enoxaparin 30 mg Subcutaneous BID dexamethasone 6 mg Oral Daily PRN Meds:hydrOXYzine, HYDROmorphone, HYDROcodone 5 mg - acetaminophen, glucose, dextrose, glucagon (rDNA), dextrose, albuterol sulfate HFA, benzonatate, tiZANidine, sodium chloride, dextrose 5 % and 0.45 % NaCl, sodium chloride flush, acetaminophen OR acetaminophen, polyethylene glycol, promethazine OR ondansetron, guaiFENesin-dextromethorphan, zolpidem Radiology Ct Abdomen Pelvis Wo Contrast Result Date: 04/30/2020 Patient Name: GISLE CARLTON STUDY: CT ABDOMEN AND PELVIS WO CONTRAST; 04/30/2020 10:48 am INDICATION: Right flank pain. COMPARISON: 03/01/2020 ACCESSION NUMBER(S): [id number] ORDERING CLINICIAN: MARGUERITE OLNG TECHNIQUE: Contiguous axial images were obtained through the abdomen and pelvis without the use of contrast. Coronal and sagittal reconstructions were performed. FINDINGS: LOWER CHEST: Images through the lung bases demonstrate nonspecific ground-glass opacities as well as numerous nodular opacities, measuring up to 1.0 cm in size. These are nonspecific and may relate to an inf ectious/inflammatory process. However, follow-up is recommended to exclude the possibility of metastatic disease. ABDOMEN AND PELVIS: LIVER: 2.1 cm hypoattenuating lesion is seen within the medial segment of left hepatic lobe. This is indeterminate and will require further evaluation/follow-up. BILE DUCTS: Not abnormally dilated. GALLBLADDER: The gallbladder is surgically absent. PANCREAS: Appears unremarkable. SPLEEN: Appears unremarkable. ADRENAL GLANDS: Appear unremarkable. KIDNEYS, URETERS,AND BLADDER: 1 mm nonobstructing calculus in the upper pole the right kidney. No radiopaque calculinoted within the left kidney. No hydronephrosis. The urinary bladder appears grossly unremarkable. B OWEL: The small and large bowel are normal in caliber and demonstrate no wall thickening. There is no evidence of a bowel obstruction. Appendix is normal in caliber. Although CT has limited sensitivity and specificity for gastric pathology, the stomach appears grossly unremarkable. RETROPERITONEUM,VESSELS: There is no aneurysmal dilatation of the abdominal aorta. The IVC is within normal limits.No pathologically enlarged retroperitoneal lymph nodes are noted. PERITONEUM: There is no evidence of pneumoperitoneum. No ascites or loculated fluid collection noted. No pathologically enlarged mesenteric lymph nodes are identified. ABDOMINAL WALL, SOFT TISSUES: Postsurgical changes. No acute proce ss. SKELETON: Degenerative changes. IMPRESSION: No evidence of nephrolithiasis or hydronephrosis. No signs of obstructive uropathy. Nonspecific ground-glass opacities in the lungs with numerous nodular opacities, measuring up to 1.0 cm. The findings are nonspecific may relate to an infectious or inflammatory process. However, follow-up is recommended as metastatic disease cannot be excluded. Indeterminate 2.1 cm lesion in the medial segment of left hepatic lobe. Consider MRI for further evaluation. Electronically signed by: FELIPE MOFFETT MD Ct Abdomen Pelvis Wo Contrast Additional Contrast? None Result Date: 04/29/2020 CT of the Abdomen and Pelvis without intravenous contrast medium History: Left flank pain TechnicalFactors: CT imaging of the abdomen and pelvis were obtained and formatted as 5 mm contiguous axial images from the domes of the diaphragm to the symphysis pubis. Sagittal and coronal reconstructions were also obtained. Oral contrast medium: None. Intravenous contrast medium: None. Comparison: CT abdomen pelvis, February 17, 2020, January 14, 2020, July 09, 2019. Findings: Lungs: Bibasilar lower lobe subsegmental atelectatic change Liver: Normal in size, shape, and attenuation. Bile Ducts: Normal in caliber. Gallbladder: Gallbladder surgically absent. Pancreas: Normal without masses, cysts, ductal dilatation or calcification. Spleen: Normal in size without masses or calcifications. No splenules. Kidneys: Normal in size. 1 mm calculus upper pole right kidney. No right hydronephrosis or masses. Less than 1 mm calculus, lower pole left kidney. No hydronephrosis or masses. Adrenals: Normal. Small bowel: Normal in caliber. Appendix: Normal. Colon: Normal in caliber. Copious stool throughout colon. Peritoneum: No ascites, free air, or fluid collections. Vessels: Aorta normal in course and caliber. Lymph nodes: Retroperitoneal: No enlarged retroperitoneal lymph nodes. Mesenteric: No enlarged mesenteric lymph nodes. Pelvic: No enlarged pelvic lymph nodes. Ureters: Normal in course and caliber. No calcifications. Bladder: No wall thickening. Reproductive organs: Uterus surgically absent. Abdominal Wall: No hernia identified Bones: No bone lesions. No degenerative changes. No post operative changes. Nonobstructing bilateral renal calculi. Constipation. Cholecystectomy. Hysterectomy. All CT scans at this facility use dose modulation, iterative reconstruction, and/or weight based dosing when appropriate to reduce radiation dose to as low as reasonably achievable. Cta Chest W Wo (pe Study) Result Date: 05/05/2020 EXAM:CTA CHEST W WO CONTRAST DATE05/05/2020 11:06 AM: REASON FOR EXAM:Acute severe anterior chest wall pain. covid positive hypoxic COMPARISON: none Technique: Helical CT was performed through the chest following the IV administration of100 cc of nonionic contrast. 3-D MIP reconstructions were performed on an independent workstation in the coronal plane with thick slab technique utilized in the interpretation. 3-D maximum intensity projection performed. All CT scans at this facility use dose modulation, iterative reconstruction, and/or weight based dosing when appropriate to reduce radiation dose to as low as reasonably achievable. FINDINGS Mediastinum: Mediastinum and zohaib are normal. Thereare no pathologically enlarged lymph nodes. The chest wall and lower neck are normal Heart: The heart is within normal limits. There is no pericardial effusion. Vascular structures:There is no evidence for thoracic aortic aneurysm or dissection. No evidence of traumatic aortic injury. There is no evidence for pulmonary emboli. Lungs: There are patchy alveolar opacities scattered throughout all segments of both lungs. Pleura: No pleural effusion or thickening. Upper abdomen: The visualized portions of the upper abdomen are unremarkable. Bones/axillae/soft tissues: Osseous structures and chest wall are normal. There are patchy alveolar opacities scattered throughout all segments of both lungs indicating pneumonia which may represent viral, COVID-19 pneumonia versus other etiologies. . No evidence of thoracic aortic dissection or aneurysm. The study is negative for pulmonary emboli. Xr Chest Portable Result Date: 05/08/2020 EXAMINATION: XR CHEST PORTABLE CLINICAL HISTORY: HYPOXIA COMPARISONS: MAY 07, 2020 FINDINGS: Osseous structures intact. Cardiopericardial silhouette normal. A homogeneous area of increased opacity is found in the right upper lobe marginated inferiorly by the minor fissure with an ill-defined area of increased opacity identified in the right lower lobe. There is of increased opacity are also visualized in the left lower lung zone. BILATERAL PNEUMONIA Xr Chest Portable Result Date: 05/07/2020 Exam: XR CHEST PORTABLE History: Hypoxia. Code 19 pneumonia. Technique: AP portable view of the chest obtained. Comparison: Portable chest radiograph from May 05, 2020 Findings: The cardiomediastinal silhouette is within normal limits. Interval improvement but persistence of patchy bilateral airspace opacities. No pneumothorax or pleural effusion. No acute osseous abnormality. Interval improvement but persistence of bilateral pneumonia. Xr Chest Portable Result Date: 05/05/2020 Exam: XR CHEST PORTABLE History: cp Technique: AP portable view of the chest obtained. Comparison: None Findings: The cardiomediastinal silhouette is within normal limits. There are ill-defined patchy alveolar opacities in both lungs, left greater than right. Bones of the thorax appear intact. There are alveolar opacities which may represent early infiltrates, pneumonia. The differential includes COVID-19 pneumonia versus other etiologies Xr Chest Portable Result Date: 05/01/2020 EXAMINATION: CHEST PORTABLE VIEW CLINICAL HISTORY: Weakness, short of breath COMPARISONS: April 30, 2020 0740 hours FINDINGS: Single views of the chest is submitted. The cardiac silhouette is unchanged. . Pulmonary vascular unremarkable. Right sided trachea. Developing area of atelectasis, groundglass infiltrate left lower lobe. No Pneumothoraces. DEVELOPING AREA OF ATELECTASIS, GROUNDGLASS INFILTRATE LEFT LOWER LOBE Xr Chest Portable Result Date: 04/30/2020 Exam: XR CHEST PORTABLE History: cough Technique: AP portable view of the chest obtained. Comparison: None Findings: The cardiomediastinal silhouette is within normal limits. There are no infiltrates, consolidations or effusions. Bones of the thorax appear intact. No radiographic evidence of acute intrathoracic process. Us Dup Lower Extremities Bilateral Venous Result Date: 05/06/2020 VENOUS DUPLEX ULTRASOUND OF THE BILATERAL LOWER EXTREMITY CLINICAL HISTORY: COVID, r/o dvt COMPARISON: NONE AVAILABLE TECHNIQUE: Sonographic imaging of the deep venous system of the bilateral lower extremities was performed by a registered apparel sales leader and the images were submitted for interpretation. FINDINGS: The common femoral, superficial femoral, and popliteal veins demonstrate normal color flow, augmentation, and compressibility. No venous duplex ultrasound evidence of DVT in the bilaterallower extremities. NO SONOGRAPHIC EVIDENCE OF DEEP VENOUS THROMBOSIS WITHIN THE BILATERAL LOWER EXTREMITIES. IMPRESSION AND SUGGESTION: Patient is at risk due to Acute hypoxic story failure COVID-19 pneumonia Volume overload, improved Hypercoagulable state Obesity Recommendation Continue remdesivir and dexamethasone O2 to keep sat 92 to 95% Self proning as tolerated DVT prophylax Continue diuretics Pulmonary hygiene * Marcella Robins MD - 05/09/2020 4:04 PM EST Infectious Diseases Inpatient Progress Note HISTORY OF PRESENT ILLNESS: Follow up for COVID-19 pneumonia on IV remdesivir, well tolerated. Patient has persistent shortness of breath, dry cough, nausea, poor appetite and chest soreness. Currently on high flow oxygen at 14 L. S/P 2 unit of convalescent plasma on 05/07. Very anxious. In tears today. Current Medications: insulin lispro 22 Units Subcutaneous TID WC furosemide 40 mg Oral Daily insulin glargine 50 Units Subcutaneous Nightly insulin lispro 0-18 Units Subcutaneous TID WC insulin lispro 0-9 Units Subcutaneous Nightly lidocaine 1 patch Transdermal Daily metFORMIN 500 mg Oral BID WC metoprolol tartrate 25 mg Oral BID pantoprazole 40 mg Oral QAM AC rosuvastatin 20 mg Oral Daily remdesivir IVPB 100 mg Intravenous Q24H sodium chloride flush 10 mL Intravenous 2 times per day enoxaparin 30 mg Subcutaneous BID dexamethasone 6 mg Oral Daily Allergies: Fentanyl; Pcn [penicillins]; Demerol; Morphine; Nubain [nalbuphine hcl]; Aspirin; Ciprofloxacin; and Ketorolac tromethamine Review of Systems 14 system review is negative other than HPI Physical Exam Vitals: 05/09/20 0506 05/09/20 0507 05/09/20 0745 05/09/20 0844 BP: 100/69 127/66 Pulse: 82 81 78 Resp: 20 Temp: 97.3 F (36.3 C) 97.9 F (36.6 C) TempSrc: SpO2: 95% 93% 93% Weight: Height: General Appearance: alert and oriented to person, place and time, well-developed and well-nourished, in no acute distress, on high flow oxygen 14 L Skin: warm and dry, no rash. Head: normocephalic and atraumatic Eyes: extraocular eye movements intact, conjunctivae normal, anicteric sclerae ENT: oropharynx clear and moist with normal mucous membranes. No thrush Lungs: normal respiratory effort, no rales, diminished breath sounds Heart:RRR, nl S1/S2, no murmur Abdomen: soft, obese, no tenderness, no H-S-megaly, + BS NEUROLOGICAL: alert and oriented x 3, no focal deficits No leg edema No erythema, no warmth, no tenderness DATA: Lab Results Component Value Date WBC 5.4 05/09/2020 HGB 12.0 05/09/2020 HCT 35.5 (L) 05/09/2020 MCV 82.3 05/09/2020 PLT 260 05/09/2020 Lab Results Component Value Date CREATININE 0.39 (L) 05/09/2020 BUN 16 05/09/2020 NA 139 05/09/2020 K 3.3 (L) 05/09/2020 CL 101 05/09/2020 CO2 25 05/09/2020 Hepatic Function Panel: Lab Results Component Value Date ALKPHOS 73 05/09/2020 ALT 9 05/09/2020 AST 13 05/09/2020 PROT 6.6 05/09/2020 BILITOT 0.4 05/09/2020 BILIDIR 0.0 11/09/2019 IBILI see below 04/17/2019 LABALBU 3.4 05/09/2020 LABALBU 4.7 04/05/2020 FINDINGS: Osseous structures intact. Cardiopericardial silhouette normal. A homogeneous area of increased opacity is found in the right upper lobe marginated inferiorly by the minor fissure with an ill-defined area of increased opacity identified in the right lower lobe. There is of increased opacity are also visualized in the left lower lung zone. Impression BILATERAL PNEUMONIA 05/09/2020 8:25 AM - Hemant, Chpo Incoming Lab Results From Soft Component Value Ref Range & Units Status Collected Lab D-Dimer, Quant 0.87High Panic 0.00 - 0.50 IMPRESSION: Severe COVID-19 pneumonia Acute respiratory failure with hypoxia Hypercoagulable state Uncontrolled diabetes mellitus type 2 with hemoglobin A1c of 11.6 Patient Active Problem List Diagnosis Headache Uncontrolled type 2 diabetes mellitus with complication, with long-term current use of insulin (HCC) Hyperlipidemia GERD (gastroesophageal reflux disease) Recurrent kidney stones Chest pain Steatosis of liver Hypertension Adiposity Tubular adenoma Flank pain Torticollis Diabetic polyneuropathy (HCC) Chronic abdominal pain Chronic lower back pain Opiate use Umbilical hernia without obstruction and without gangrene Acquired absence of other specified parts of digestive tract 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) Pure hypercholesterolemia, unspecified Acute hyperglycemia Recurrent sinusitis Acute exacerbation of Chronic right flank pain Muscular pain in the flank region COVID-19 virus infection Uncontrolled type 2 diabetes mellitus with hyperglycemia (HCC) PLAN: REPlace potassium continue IV remdesivir till tomorrow Oxygen support and weaning as tolerated Follow-up CBC complete metabolic profile Lasix 40 daily Discussed with patient, RN and Dr Eva Robins MD * Trent Velasquez MD - 05/09/2020 11:55 AM EST Hospitalist Progress Note PCP: Skye Jones APRN - DIRECTOR OF PHOTOGRAPHY Date of Admission: 05/05/2020 Chief Complaint: Patient is saturating in the 90s on HFNC, afebrile, stable HD, Medications: Reviewed Infusion Medications dextrose dextrose 5 % and 0.45 % NaCl Stopped (05/07/20 5125) Scheduled Medications insulin lispro 22 Units Subcutaneous TID WC furosemide 40 mg Oral Daily insulin glargine 50 Units Subcutaneous Nightly insulin lispro 0-18 Units Subcutaneous TID WC insulin lispro 0-9 Units Subcutaneous Nightly lidocaine 1 patch Transdermal Daily metFORMIN 500 mg Oral BID WC metoprolol tartrate 25 mg Oral BID pantoprazole 40 mg Oral QAM AC rosuvastatin 20 mg Oral Daily remdesivir IVPB 100 mg Intravenous Q24H sodium chloride flush 10 mL Intravenous 2 times per day enoxaparin 30 mg Subcutaneous BID dexamethasone 6 mg Oral Daily PRN Meds: HYDROcodone 5 mg - acetaminophen, glucose, dextrose, glucagon (rDNA), dextrose, albuterolsulfate HFA, benzonatate, tiZANidine, sodium chloride, potassium chloride, magnesium sulfate, sodium phosphate IVPB OR sodium phosphate IVPB OR sodium phosphate IVPB, dextrose 5 % and 0.45 % NaCl, sodium chloride flush, acetaminophen OR acetaminophen, polyethylene glycol, promethazine OR ondansetron, guaiFENesin-dextromethorphan, zolpidem No intake or output data in the 24 hours ending 05/09/20 1155 Exam: BP 127/66 Pulse 78 Temp 97.9 F (36.6 C) Resp 20 Ht 5' 7 (1.702 m) Wt 273 lb (123.8 kg) LMP (LMP Unknown) SpO2 93% BMI 42.76 kg/m General appearance: appears stated age and cooperative. Respiratory: Diminished BS bilaterally Cardiovascular: Regular rate and rhythm with normal S1S2 Abdomen: Soft, active bowel sounds. Musculoskeletal: No edema bilaterally. Labs: Recent Labs 05/07/20 0410 05/07/20 1623 05/08/20 0701 05/09/20 0703 WBC 5.0 -- 4.8 5.4 HGB 12.3 12.3 12.1 12.0 HCT 36.9* -- 36.7* 35.5* PLT 264 -- 241 260 Recent Labs 05/07/20 0825 05/07/20 1143 05/07/20 1619 05/07/20 1623 05/08/20 0701 05/09/20 0703 NA 134* 136 139 -- 136 139 K 3.9 4.1 4.3 -- 3.7 3.3* CL 103 102 106 -- 100 101 CO2 22 24 19* -- 25 25 BUN 16 16 19 -- 15 16 CREATININE 0.47* 0.61 0.60 0.6 0.51 0.39* CALCIUM 8.6 8.6 8.9 -- 8.5 8.7 PHOS 1.3* 1.3* 2.3 -- -- -- Recent Labs 05/07/20 0410 05/08/20 0701 05/09/20 0703 AST 18 18 13 ALT 11 10 9 BILITOT <0.2 0.3 0.4 ALKPHOS 67 68 73 No results for input(s): INR in the last 72 hours. No results for input(s): CKTOTAL, TROPONINI in the last 72 hours. Urinalysis: Lab Results Component Value Date NITRU NEGATIVE 04/30/2020 WBCUA 6 04/30/2020 BACTERIA 1+ 04/30/2020 BACTERIA MANY 04/30/2020 RBCUA >182 04/30/2020 BLOODU LARGE (3+) 04/30/2020 SPECGRAV 1.018 04/30/2020 GLUCOSEU 250 04/30/2020 GLUCOSEU NEG 10/14/2011 Radiology: XR CHEST PORTABLE Final Result BILATERAL PNEUMONIA RADIOLOGY REPORT Final Result XR CHEST PORTABLE Final Result Interval improvement but persistence of bilateral pneumonia. US DUP LOWER EXTREMITIES BILATERAL VENOUS Final Result NO SONOGRAPHIC EVIDENCE OF DEEP VENOUS THROMBOSIS WITHIN THE BILATERAL LOWER EXTREMITIES. CTA Chest W WO (PE study) Final Result There are patchy alveolar opacities scattered throughout all segments of both lungs indicating pneumonia which may represent viral, COVID-19 pneumonia versus other etiologies. . No evidence of thoracic aortic dissection or aneurysm. The study is negative for pulmonary emboli. XR CHEST PORTABLE Final Result There are alveolar opacities which may represent early infiltrates, pneumonia. The differential includes COVID-19 pneumonia versus other etiologies Assessment/Plan: 44 y/o female with history of IDDM, morbid obesity admitted with: Acute hypoxic respiratory failure - due to COVID19 pneumonia - on IV Remdesivir, decadron, SC Lovenox, O2 therapy - s/p transfusion of convalescent plasma - management per ID and pulmonology DM2 with hyperglycemia >600 - likely worsened from steroid use - requiring Insulin infusion - improved, infusion stopped - started on Lantus, premeal coverage, ISS - managed by endocrinology Hypophosphatemia - replaced * Marcella Robins MD - 05/08/2020 3:05 PM EST Infectious Diseases Inpatient Progress Note HISTORY OF PRESENT ILLNESS: Follow up for COVID-19 pneumonia on IV remdesivir, well tolerated. Patient has persistent shortness of breath, dry cough, nausea, poor appetite and chest soreness. Currently on high flow oxygen at 15 L. Received 1 unit of convalescent plasma on 05 07 and is scheduled to receive second unit today Current Medications: insulin lispro 22 Units Subcutaneous TID WC furosemide 20 mg Oral Daily sodium chloride 20 mL Intravenous Once insulin glargine 50 Units Subcutaneous Nightly insulin lispro 0-18 Units Subcutaneous TID WC insulin lispro 0-9 Units Subcutaneous Nightly lidocaine 1 patch Transdermal Daily metFORMIN 500 mg Oral BID WC metoprolol tartrate 25 mg Oral BID pantoprazole 40 mg Oral QAM AC rosuvastatin 20 mg Oral Daily remdesivir IVPB 100 mg Intravenous Q24H sodium chloride flush 10 mL Intravenous 2 times per day enoxaparin 30 mg Subcutaneous BID dexamethasone 6 mg Oral Daily Allergies: Fentanyl; Pcn [penicillins]; Demerol; Morphine; Nubain [nalbuphine hcl]; Aspirin; Ciprofloxacin; and Ketorolac tromethamine Review of Systems 14 system review is negative other than HPI Physical Exam Vitals: 05/08/20 0030 05/08/20 0145 05/08/20 0854 05/08/20 1231 BP: (!) 146/87 (!) 153/85 132/69 (!) 118/54 Pulse: 72 62 73 87 Resp: 18 18 18 18 Temp: 98.2 F (36.8 C) 97.7 F (36.5 C) 98.2 F (36.8 C) 98.4 F (36.9 C) TempSrc: Oral Oral Oral Oral SpO2: 93% 95% 93% 93% Weight: Height: General Appearance: alert and oriented to person, place and time, well-developed and well-nourished, in no acute distress, on 4 lit NC, oxygen saturation remains low at 90% Skin: warm and dry, no rash. Head: normocephalic and atraumatic Eyes: extraocular eye movements intact, conjunctivae normal, anicteric sclerae ENT: oropharynx clear and moist with normal mucous membranes. No thrush Lungs: normal respiratory effort, B basilar rales Heart:RRR, nl S1/S2, no murmur Abdomen: soft, obese, no tenderness, no H-S-megaly, + BS NEUROLOGICAL: alert and oriented x 3, no focal deficits No leg edema No erythema, no warmth, no tenderness DATA: Lab Results Component Value Date WBC 4.8 05/08/2020 HGB 12.1 05/08/2020 HCT 36.7 (L) 05/08/2020 MCV 82.3 05/08/2020 PLT 241 05/08/2020 Lab Results Component Value Date CREATININE 0.51 05/08/2020 BUN 15 05/08/2020 NA 136 05/08/2020 K 3.7 05/08/2020 CL 100 05/08/2020 CO2 25 05/08/2020 Hepatic Function Panel: Lab Results Component Value Date ALKPHOS 68 05/08/2020 ALT 10 05/08/2020 AST 18 05/08/2020 PROT 6.8 05/08/2020 BILITOT 0.3 05/08/2020 BILIDIR 0.0 11/09/2019 IBILI see below 04/17/2019 LABALBU 3.2 05/08/2020 LABALBU 4.7 04/05/2020 D Dimer=0.98 FINDINGS: Osseous structures intact. Cardiopericardial silhouette normal. A homogeneous area of increased opacity is found in the right upper lobe marginated inferiorly by the minor fissure with an ill-defined area of increased opacity identified in the right lower lobe. There is of increased opacity are also visualized in the left lower lung zone. Impression BILATERAL PNEUMONIA IMPRESSION: Severe COVID-19 pneumonia Acute respiratory failure with hypoxia Hypercoagulable state Uncontrolled diabetes mellitus type 2 with hemoglobin A1c of 11.6 Patient Active Problem List Diagnosis Headache Uncontrolled type 2 diabetes mellitus with complication, with long-term current use of insulin (HCC) Hyperlipidemia GERD (gastroesophageal reflux disease) Recurrent kidney stones Chest pain Steatosis of liver Hypertension Adiposity Tubular adenoma Flank pain Torticollis Diabetic polyneuropathy (HCC) Chronic abdominal pain Chronic lower back pain Opiate use Umbilical hernia without obstruction and without gangrene Acquired absence of other specified parts of digestive tract 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) Pure hypercholesterolemia, unspecified Acute hyperglycemia Recurrent sinusitis Acute exacerbation of Chronic right flank pain Muscular pain in the flank region COVID-19 virus infection Uncontrolled type 2 diabetes mellitus with hyperglycemia (HCC) PLAN: Continue IV remdesivir for 3 more days Transfuse with 1 more unit convalescent plasma Oxygen support and weaning as tolerated Follow-up CBC complete metabolic profile D-dimer ferritin Crease Lasix to 40 daily Discussed with patient, RN and Dr Eva Robins MD * Gabriele Gabriel PA - 05/08/2020 1:53 PM EST Endocrinology Progress Note Assessment and Plan: Assessment- 1. Type 2 diabetes, poorly controlled 2. COVID 19 3. Hyperglycemia Plan- 1. Lantus 50 units nightly 2. Increase Humalog 22 units before meals 3. Monitor glucose closely POC Glucose: Recent Labs 05/07/20 1623 05/07/20 1648 05/07/20 2129 05/08/20 0851 05/08/20 1159 POCGLU 423* 354* 294* 166* 203* HGBA1C: Lab Results Component Value Date LABA1C 11.6 (H) 05/08/2020 LABA1C 11.5 (H) 05/06/2020 LABA1C 10.7 02/02/2020 CBC: Recent Labs 05/07/20 0410 05/07/20 1623 05/08/20 0701 WBC 5.0 -- 4.8 HGB 12.3 12.3 12.1 PLT 264 -- 241 CMP: Recent Labs 05/07/20 1143 05/07/20 1619 05/07/20 1623 05/08/20 0701 NA 136 139 -- 136 K 4.1 4.3 -- 3.7 CL 102 106 -- 100 CO2 24 19* -- 25 BUN 16 19 -- 15 CREATININE 0.61 0.60 0.6 0.51 GLUCOSE 158* 396* -- 169* CALCIUM 8.6 8.9 -- 8.5 LABGLOM >60.0 >60.0 >60 >60.0 CC: Chief Complaint Patient presents with Shortness of Breath covid + Subjective: Interval History: Patient is a 44-year-old type 2 insulin-dependent diabetic female poorly controlled. She began having fevers, chills, myalgias, and cough approximately 10 days ago. Symptoms got progressively worse she called 911 was brought to the emergency room and admitted. She was severely hyperglycemic and started on insulin drip this was stopped in about 48 hours and she was restarted on her basal and bolus insulin dosing with improving glycemic control. Review of systems: denies polyuria, polydipsia, ABD pain, flank pain, N/V/D, or diaphoresis Medications: Scheduled Meds: furosemide 20 mg Oral Daily sodium chloride 20 mL Intravenous Once insulin glargine 50 Units Subcutaneous Nightly insulin lispro 20 Units Subcutaneous TID WC insulin lispro 0-18 Units Subcutaneous TID WC insulin lispro 0-9 Units Subcutaneous Nightly lidocaine 1 patch Transdermal Daily metFORMIN 500 mg Oral BID WC metoprolol tartrate 25 mg Oral BID pantoprazole 40 mg Oral QAM AC rosuvastatin 20 mg Oral Daily remdesivir IVPB 100 mg Intravenous Q24H sodium chloride flush 10 mL Intravenous 2 times per day enoxaparin 30 mg Subcutaneous BID dexamethasone 6 mg Oral Daily Continuous Infusions: dextrose dextrose 5 % and 0.45 % NaCl Stopped (05/07/20 115) Objective: Vitals: BP 132/69 Pulse 73 Temp 98.2 F (36.8 C) (Oral) Resp 18 Ht 5' 7 (1.702 m) Wt 273 lb (123.8 kg) LMP (LMP Unknown) SpO2 93% BMI 42.76 kg/m Wt Readings from Last 3 Encounters: 05/05/20 273 lb (123.8 kg) 05/01/20 270 lb (122.5 kg) 04/30/20 270 lb (122.5 kg) Patient Active Problem List: Headache Uncontrolled type 2 diabetes mellitus with complication, with long-term current use of insulin (HCC) Hyperlipidemia GERD (gastroesophageal reflux disease) Recurrent kidney stones Chest pain Steatosis of liver Hypertension Adiposity Tubular adenoma Flank pain Torticollis Diabetic polyneuropathy (HCC) Chronic abdominal pain Chronic lower back pain Opiate use Umbilical hernia without obstruction and without gangrene Acquired absence of other specified parts of digestive tract 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) Pure hypercholesterolemia, unspecified Acute hyperglycemia Recurrent sinusitis Acute exacerbation of Chronic right flank pain Muscular pain in the flank region COVID-19 virus infection Uncontrolled type 2 diabetes mellitus with hyperglycemia (HCC) * Trent Velasquez MD - 05/08/2020 12:57 PM EST Hospitalist Progress Note PCP: Skye Jones, CERTIFIED PROSTHETIST VICE PRESIDENT - DIRECTOR OF PHOTOGRAPHY Date of Admission: 05/05/2020 Chief Complaint: Patient is saturating in the 90s on HFNC, afebrile, stable HD, s/p transfusion of convalescent plasma overnight Medications: Reviewed Infusion Medications dextrose dextrose 5 % and 0.45 % NaCl Stopped (05/07/20 115) Scheduled Medications furosemide 20 mg Oral Daily sodium chloride 20 mL Intravenous Once insulin glargine 50 Units Subcutaneous Nightly insulin lispro 20 Units Subcutaneous TID WC insulin lispro 0-18 Units Subcutaneous TID WC insulin lispro 0-9 Units Subcutaneous Nightly lidocaine 1 patch Transdermal Daily metFORMIN 500 mg Oral BID WC metoprolol tartrate 25 mg Oral BID pantoprazole 40 mg Oral QAM AC rosuvastatin 20 mg Oral Daily remdesivir IVPB 100 mg Intravenous Q24H sodium chloride flush 10 mL Intravenous 2 times per day enoxaparin 30 mg Subcutaneous BID dexamethasone 6 mg Oral Daily PRN Meds: HYDROcodone 5 mg - acetaminophen, glucose, dextrose, glucagon (rDNA), dextrose, albuterolsulfate HFA, benzonatate, tiZANidine, sodium chloride, potassium chloride, magnesium sulfate, sodium phosphate IVPB OR sodium phosphate IVPB OR sodium phosphate IVPB, dextrose 5 % and 0.45 % NaCl, sodium chloride flush, acetaminophen OR acetaminophen, polyethylene glycol, promethazine OR ondansetron, guaiFENesin-dextromethorphan, zolpidem Intake/Output Summary (Last 24 hours) at 05/08/2020 1257 Last data filed at 05/07/2020 2133 Gross per 24 hour Intake 240 ml Output Net 240 ml Exam: BP 132/69 Pulse 73 Temp 98.2 F (36.8 C) (Oral) Resp 18 Ht 5' 7 (1.702 m) Wt 273 lb (123.8 kg) LMP (LMP Unknown) SpO2 93% BMI 42.76 kg/m General appearance: appears stated age and cooperative. Respiratory: Diminished BS bilaterally Cardiovascular: Regular rate and rhythm with normal S1S2 Abdomen: Soft, active bowel sounds. Musculoskeletal: No edema bilaterally. Labs: Recent Labs 05/06/20 0713 05/07/20 0410 05/07/20 1623 05/08/20 0701 WBC 3.4* 5.0 -- 4.8 HGB 13.1 12.3 12.3 12.1 HCT 39.2 36.9* -- 36.7* PLT 254 264 -- 241 Recent Labs 05/07/20 0825 05/07/20 1143 05/07/20 1619 05/07/20 1623 05/08/20 0701 NA 134* 136 139 -- 136 K 3.9 4.1 4.3 -- 3.7 CL 103 102 106 -- 100 CO2 22 24 19* -- 25 BUN 16 16 19 -- 15 CREATININE 0.47* 0.61 0.60 0.6 0.51 CALCIUM 8.6 8.6 8.9 -- 8.5 PHOS 1.3* 1.3* 2.3 -- -- Recent Labs 05/06/20 0713 05/07/20 0410 05/08/20 0701 AST 21 18 18 ALT 13 11 10 BILITOT 0.3 <0.2 0.3 ALKPHOS 76 67 68 No results for input(s): INR in the last 72 hours. No results for input(s): CKTOTAL, TROPONINI in the last 72 hours. Urinalysis: Lab Results Component Value Date NITRU NEGATIVE 04/30/2020 WBCUA 6 04/30/2020 BACTERIA 1+ 04/30/2020 BACTERIA MANY 04/30/2020 RBCUA >182 04/30/2020 BLOODU LARGE (3+) 04/30/2020 SPECGRAV 1.018 04/30/2020 GLUCOSEU 250 04/30/2020 GLUCOSEU NEG 10/14/2011 Radiology: XR CHEST PORTABLE Final Result BILATERAL PNEUMONIA RADIOLOGY REPORT Final Result XR CHEST PORTABLE Final Result Interval improvement but persistence of bilateral pneumonia. US DUP LOWER EXTREMITIES BILATERAL VENOUS Final Result NO SONOGRAPHIC EVIDENCE OF DEEP VENOUS THROMBOSIS WITHIN THE BILATERAL LOWER EXTREMITIES. CTA Chest W WO (PE study) Final Result There are patchy alveolar opacities scattered throughout all segments of both lungs indicating pneumonia which may represent viral, COVID-19 pneumonia versus other etiologies. . No evidence of thoracic aortic dissection or aneurysm. The study is negative for pulmonary emboli. XR CHEST PORTABLE Final Result There are alveolar opacities which may represent early infiltrates, pneumonia. The differential includes COVID-19 pneumonia versus other etiologies Assessment/Plan: 44 y/o female with history of IDDM, morbid obesity admitted with: Acute hypoxic respiratory failure - due to COVID19 pneumonia - on IV Remdesivir, decadron, SC Lovenox, O2 therapy - s/p transfusion of convalescent plasma - management per ID and pulmonology DM2 with hyperglycemia >600 - likely worsened from steroid use - requiring Insulin infusion - improved, infusion stopped - started on Lantus, premeal coverage, ISS - managed by endocrinology Hypophosphatemia - replaced * Angela Davies RN - 05/08/2020 12:24 AM EST 2146: Patient is alert and oriented x4. Diminished raul sounds bilaterally. Dyspnea with exertion stating that she feels very weak. Patient is currently 92% on high flow nasal cannula 15L. Patient states that the oxygen has dried her nose despite humidification. Regular heart sounds. Active bowel sounds. Skin is intact. Reddened, flush face. No request at this time. Will monitor. 2330: Blood bank notified RN that unit of plasma is ready. However second unit is not yet ready, will notify when second unit is ready. 0015: Plasma infusion started, VSS, consent signed. Will remain with patient for 15 minutes. 0030: Patient is tolerated plasma infusion well, no signs of reaction. Will continue to monitor. 0150: First Plasma transfusion completed. Patient tolerated well. VSS. Awaiting second unit of plasma to be ready, lab will notify. * Trent Velasquez MD - 05/07/2020 3:30 PM EST Physician Progress Note PATIENT: [facility] #: [id number] : 1975 ADMIT DATE: 05/05/2020 9:09 AM DISCH DATE: RESPONDING PROVIDER #: TRENT VELASQUEZ MD QUERY TEXT: Dear Attending Physician: Patient admitted with COVID 19 PNA and acute hypoxic respiratory failure. Noted: WBC 3.6 3.4 P 129-77 R 41-16 88% 3LNC (P/F 171) T 100.3. Please document in the progress notes and discharge summary if you are evaluating and /or treating any of the following: The medical record reflects the following: Risk Factors: MO DM2 DKA Clinical Indicators: 05/06 Dr. Robins: Moderate COVID-19 pneumonia Acute respiratory failure with hypoxia Treatment: CT CXR IV remdesivir for 5 days Continue IV Decadron O2 ID Options provided: -- Sepsis, present on admission -- No Sepsis, COVID - 19 PNA -- Other - I will add my own diagnosis -- Disagree - Not applicable / Not valid -- Disagree - Clinically unable to determine / Unknown -- Refer to Clinical Documentation Reviewer PROVIDER RESPONSE TEXT: This patient has sepsis which was present on admission. Query created by: Sandi Paz on 05/07/2020 1:38 PM Electronically signed by: TRENT VELASQUEZ MD 05/07/2020 3:29 PM * Marcella Robins MD - 05/07/2020 3:15 PM EST Infectious Diseases Inpatient Progress Note HISTORY OF PRESENT ILLNESS: Follow up for COVID-19 pneumonia on IV remdesivir, well tolerated. Patient is anxious today because she feels worse with worsening shortness of breath, dry cough, nausea, poor appetite and chest soreness. Current Medications: insulin lispro 0-6 Units Subcutaneous TID WC insulin lispro 0-3 Units Subcutaneous Nightly potassium & sodium phosphates 2 packet Oral Once furosemide 20 mg Oral Daily sodium chloride 20 mL Intravenous Once lidocaine 1 patch Transdermal Daily metFORMIN 500 mg Oral BID WC metoprolol tartrate 25 mg Oral BID pantoprazole 40 mg Oral QAM AC rosuvastatin 20 mg Oral Daily remdesivir IVPB 100 mg Intravenous Q24H sodium chloride flush 10 mL Intravenous 2 times per day enoxaparin 30 mg Subcutaneous BID dexamethasone 6 mg Oral Daily Allergies: Fentanyl; Pcn [penicillins]; Demerol; Morphine; Nubain [nalbuphine hcl]; Aspirin; Ciprofloxacin; and Ketorolac tromethamine Review of Systems 14 system review is negative other than HPI Physical Exam Vitals: 05/06/20 2051 05/06/20 2054 05/07/20 0829 05/07/20 0835 BP: (!) 104/48 (!) 104/48 (!) 117/59 Pulse: 104 85 77 Resp: 18 Temp: 98.2 F (36.8 C) 98.1 F (36.7 C) TempSrc: Oral SpO2: 95% (!) 88% 90% Weight: Height: General Appearance: alert and oriented to person, place and time, well-developed and well-nourished, in no acute distress, on 4 lit NC, oxygen saturation remains low at 90% Skin: warm and dry, no rash. Head: normocephalic and atraumatic Eyes: extraocular eye movements intact, conjunctivae normal, anicteric sclerae ENT: oropharynx clear and moist with normal mucous membranes. No thrush Lungs: normal respiratory effort, B basilar rales Heart:RRR, nl S1/S2, no murmur Abdomen: soft, obese, no tenderness, no H-S-megaly, + BS NEUROLOGICAL: alert and oriented x 3, no focal deficits No leg edema No erythema, no warmth, no tenderness DATA: Lab Results Component Value Date WBC 5.0 05/07/2020 HGB 12.3 05/07/2020 HCT 36.9 (L) 05/07/2020 MCV 82.8 05/07/2020 PLT 264 05/07/2020 Lab Results Component Value Date CREATININE 0.61 05/07/2020 BUN 16 05/07/2020 NA 136 05/07/2020 K 4.1 05/07/2020 CL 102 05/07/2020 CO2 24 05/07/2020 Hepatic Function Panel: Lab Results Component Value Date ALKPHOS 67 05/07/2020 ALT 11 05/07/2020 AST 18 05/07/2020 PROT 6.3 05/07/2020 BILITOT <0.2 05/07/2020 BILIDIR 0.0 11/09/2019 IBILI see below 04/17/2019 LABALBU 3.4 05/07/2020 LABALBU 4.7 04/05/2020 IMPRESSION: Severe COVID-19 pneumonia Acute respiratory failure with hypoxia Hypercoagulable state Patient Active Problem List Diagnosis Headache Uncontrolled type 2 diabetes mellitus with complication, with long-term current use of insulin (HCC) Hyperlipidemia GERD (gastroesophageal reflux disease) Recurrent kidney stones Chest pain Steatosis of liver Hypertension Adiposity Tubular adenoma Flank pain Torticollis Diabetic polyneuropathy (HCC) Chronic abdominal pain Chronic lower back pain Opiate use Umbilical hernia without obstruction and without gangrene Acquired absence of other specified parts of digestive tract 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 Type and crossmatch was ordered x2 ABGs Chest x-ray in a.m. Follow-up CBC complete metabolic profile D-dimer ferritin Discussed with patient, RN and Dr Eva Robins MD * Trent Velasquez MD - 05/07/2020 2:32 PM EST Hospitalist Progress Note PCP: Skye Jones APRN - DIRECTOR OF PHOTOGRAPHY Date of Admission: 05/05/2020 Chief Complaint: Patient is hypoxic-89% von 4 liters of NC and complaining of shortness of breath per nursing staff Medications: Reviewed Infusion Medications dextrose dextrose 5 % and 0.45 % NaCl Stopped (05/07/20 1155) Scheduled Medications insulin lispro 0-6 Units Subcutaneous TID WC insulin lispro 0-3 Units Subcutaneous Nightly lidocaine 1 patch Transdermal Daily metFORMIN 500 mg Oral BID WC metoprolol tartrate 25 mg Oral BID pantoprazole 40 mg Oral QAM AC rosuvastatin 20 mg Oral Daily remdesivir IVPB 100 mg Intravenous Q24H sodium chloride flush 10 mL Intravenous 2 times per day enoxaparin 30 mg Subcutaneous BID dexamethasone 6 mg Oral Daily PRN Meds: glucose, dextrose, glucagon (rDNA), dextrose, albuterol sulfate HFA, benzonatate, tiZANidine, sodium chloride, potassium chloride, magnesium sulfate, sodium phosphate IVPB OR sodium phosphate IVPB OR sodium phosphate IVPB, dextrose 5 % and 0.45 % NaCl, sodium chloride flush, acetaminophen OR acetaminophen, polyethylene glycol, promethazine OR ondansetron, guaiFENesin-dextromethorphan, zolpidem Intake/Output Summary (Last 24 hours) at 05/07/2020 1433 Last data filed at 05/07/2020 0632 Gross per 24 hour Intake 830 ml Output Net 830 ml Exam: BP (!) 117/59 Pulse 77 Temp 98.1 F (36.7 C) (Oral) Resp 18 Ht 5' 7 (1.702 m) Wt 273 lb (123.8 kg) LMP (LMP Unknown) SpO2 90% BMI 42.76 kg/m General appearance: appears stated age and cooperative. Respiratory: Diminished BS bilaterally Cardiovascular: Regular rate and rhythm with normal S1S2 Abdomen: Soft, active bowel sounds. Musculoskeletal: No edema bilaterally. Labs: Recent Labs 05/05/20 0915 05/05/20 1021 05/06/20 0713 05/07/20 0410 WBC 3.6* -- 3.4* 5.0 HGB 14.3 13.9 13.1 12.3 HCT 42.0 -- 39.2 36.9* PLT 231 -- 254 264 Recent Labs 05/07/20 0410 05/07/20 0825 05/07/20 1143 NA 132* 134* 136 K 3.6 3.9 4.1 CL 100 103 102 CO2 24 22 24 BUN 15 16 16 CREATININE 0.55 0.47* 0.61 CALCIUM 8.9 8.6 8.6 PHOS 1.3* 1.3* 1.3* Recent Labs 05/05/20 0915 05/06/20 0713 05/07/20 0410 AST 34 21 18 ALT 18 13 11 BILITOT 0.4 0.3 <0.2 ALKPHOS 86 76 67 No results for input(s): INR in the last 72 hours. Recent Labs 05/05/20914 TROPONINI <0.010 Urinalysis: Lab Results Component Value Date NITRU NEGATIVE 04/30/2020 WBCUA 6 04/30/2020 BACTERIA 1+ 04/30/2020 BACTERIA MANY 04/30/2020 RBCUA >182 04/30/2020 BLOODU LARGE (3+) 04/30/2020 SPECGRAV 1.018 04/30/2020 GLUCOSEU 250 04/30/2020 GLUCOSEU NEG 10/14/2011 Radiology: US DUP LOWER EXTREMITIES BILATERAL VENOUS Final Result NO SONOGRAPHIC EVIDENCE OF DEEP VENOUS THROMBOSIS WITHIN THE BILATERAL LOWER EXTREMITIES. CTA Chest W WO (PE study) Final Result There are patchy alveolar opacities scattered throughout all segments of both lungs indicating pneumonia which may represent viral, COVID-19 pneumonia versus other etiologies. . No evidence of thoracic aortic dissection or aneurysm. The study is negative for pulmonary emboli. XR CHEST PORTABLE Final Result There are alveolar opacities which may represent early infiltrates, pneumonia. The differential includes COVID-19 pneumonia versus other etiologies Assessment/Plan: 44 y/o female admitted with: Acute hypoxic respiratory failure - due to COVID19 pneumonia - on IV Remdesivir, decadron, SC Lovenox, O2 therapy - convalescent plasma will be transfused - management per ID and pulmonology DM2 with hyperglycemia - likely worsened from steroid use - requiring Insulin infusion - improved, infusion stopped - started on ISS - endocrinology consulted for further management Hypophosphatemia - replaced * Beto Zuniga DO - 05/06/2020 8:14 PM EST Called by RN d/t persistently elevated BS. BMP shows AG 15. Will start pt on insulin gtt for DKA and cs endocrine. * Zoltan Gomez RCP - 05/06/2020 7:37 PM EST Ally Fraga Respiratory Therapy Evaluation Current Order: PRN albuterol Home Regimen: PRN albuterol Ordering Physician: Rafa Re-evaluation Date: na Diagnosis:COVID-19 Patient Status: Stable / Unstable + Physician notified The following MDI Criteria must be met in order to convert aerosol to MDI with spacer. If unable tomeet, MDI will be converted to aerosol: [] Patient able to demonstrate the ability to use MDI effectively [] Patient alert and cooperative [] Patient able to take deep breath with 5-10 second hold [] Medication(s) available in this delivery method [] Peak flow greater than or equal to 200 ml/min Current Order Substituted To (same drug, same frequency) Aerosol to MDI [] Albuterol Sulfate 0.083% unit dose by aerosol Albuterol Sulfate MDI 2 puffs by inhalation with spacer [] Levalbuterol 1.25 mg unit dose by aerosol Levalbuterol MDI 2 puffs by inhalation with spacer [] Levalbuterol 0.63 mg unit dose by aerosol Levalbuterol MDI 2 puffs by inhalation with spacer [] Ipratropium Nora 0.02% unit dose by aerosol Ipratropium Nora MDI 2 puffs by inhalation with spacer [] Duoneb (Ipratropium + Albuterol) unit dose by aerosol Ipratropium MDI + Albuterol MDI 2 puffs byinhalation w/spacer MDI to Aerosol [] Albuterol Sulfate MDI Albuterol Sulfate 0.083% unit dose by aerosol [] Levalbuterol MDI 2 puffs by inhalation Levalbuterol 1.25 mg unit dose by aerosol [] Ipratropium Nora MDI by inhalation Ipratropium Nora 0.02% unit dose by aerosol [] Combivent (Ipratropium + Albuterol) MDI by inhalation Duoneb (Ipratropium + Albuterol) unit doseby aerosol Treatment Assessment [Frequency/Schedule]: Change frequency to: no change per Protocol, P&T, [facility] Points 0 1 2 3 4 Pulmonary Status Non-Smoker [x] Smoking history < 20 pack years [] Smoking history ? 20 pack years [] Pulmonary Disorder (acute or chronic) [] Severe or Chronic w/ Exacerbation [] Surgical Status No [x] Surgeries General [] Surgery Lower [] Abdominal Thoracic or [] Upper Abdominal Thoracic with PulmonaryDisorder [] Chest X-ray Clear/Not Ordered [] Chronic Changes Results Pending [] Infiltrates, atelectasis, pleural effusion, or edema [x] Infiltrates in more than one lobe [] Infiltrate + Atelectasis, &/or pleural effusion [] Respiratory Pattern Regular, RR = 12-20 [x] Increased, RR = 21-25 [] NSOW, irregular, or RR = 26-30 [] Decreased FEV1 or RR = 31-35 [] Severe SOB, use of accessory muscles, or RR ? 35 [] Mental Status Alert, oriented, Cooperative [x] Confused but Follows commands [] Lethargic or unable to follow commands [] Obtunded[] Comatose [] Breath Sounds Clear to auscultation [x] Decreased unilaterally or in bases only [] Decreased bilaterally [x] Crackles or intermittent wheezes [] Wheezes [] Cough Strong, Spontan., & nonproductive [x] Strong, spontaneous, & productive [] Weak, Nonproductive [] Weak, productive or with wheezes [] No spontaneous cough or may require suctioning [] Level of Activity Ambulatory [x] Ambulatory w/ Assist [] Non-ambulatory [] Paraplegic [] Quadriplegic [] Total Score:__4 Triage Score:_5 Tri Triage: 1. (>20) Freq: Q3 2. (16-20) Freq: Q4 3. (11-15) Freq: QID & Albuterol Q2 PRN 4. (6-10) Freq: TID & Albuterol Q2 PRN 5. (0-5) Freq Q4prn * Yanely Roberson [facility] - 05/06/2020 4:28 PM EST Order for Remdesivir received from Infectious Disease, Dr. Robins 1) Confirmed drug availability for complete patient course of therapy (200 mg IV x 1, then 100 mg daily on days 2-5) 2) Reviewed/Confirmed patient meets Inclusion Criteria for use as follows: I. Adults, children (?3.5Kg, only use lyophilized powder), or women with proven COVID-19 as defined by a positive nasopharyngeal swab, tracheal aspirate or sputum SARS-CoV-2 PCR or a positive serology test requiring hospitalization for [id number] pneumonia. II. Severe disease defined as having one of the following prior to start of RDV: Requiring invasive or non-invasive mechanical ventilation (start RDV within 48 hours of intubation)* Requiring supplemental oxygen An SpO2 ? 94% on room air^^ Tachypnea (respiratory rate persistently ? 24 breaths per minute) COVID-19 Order: [id number] Status: Final result Visible to patient: No (not released) Next appt: None Ref Range & Units 6d ago SARS-CoV-2, NAAT Not Detected DETECTEDAbnormal 3) Recommend prioritization of patients who present with symptom onset < 14 days and within 10 days of acute care admission 4) Reviewed/Confirmed none of the following Exclusion Criteria present: (criteria in bold present during review; risk/benefit rationale of physician documented) I. Mechanically ventilated ? 48 hours prior to start of remdesivir II. Use of more than 1 vasopressor agent prior to start of remdesivir III. Already improving on current treatment/supportive regimen as evidenced by improving oxygenation, and/or impending discharge IV. Patients in whom the clinical team think is in the immediate short- term whereby administration of RDV unlikely to change clinical outcome 5) Recommend against initiating in patients with GFR < 30mL/min or ALT >/= 5 times ULN at baseline Recent Labs 05/05/20 1021 05/06/20 0713 CREATININE 0.5* 0.7 0.53 Recent Labs 05/06/20 0713 ALT 13 AST 21 6) Monitoring Parameters: CMP (includes hepatic panel) and CBC daily x 5 days (already ordered) Yanely Roberson PharmD * Kristi Craig DO - 05/06/2020 2:33 PM EST Hospitalist Progress Note PCP: Skye Jones APRN - DIRECTOR OF PHOTOGRAPHY Date of Admission: 05/05/2020 Chief Complaint: Subjective: : Patient seen and examined at bedside. She reports continued shortness of breath, cough diarrhea andgeneralized myalgias. She is requesting additional medication for her myalgias. We discussed expected course of the viral illness and I encouraged her to continue [id number] Tylenol and supportive care for her peripheral symptoms. Patient again requested opioid medications for her myalgias, after discussion she is agreeable to trial lidocaine patch. Addendum 1803: Notified of hyperglycemia via perfect serve. Pt received 52U lispro and LA insulin. I have requested recheck in one hour. Repeat BMP is ordered and pending to evaluate for DKA. If labs are consistent with DKA, and BG remains elevated, pt will require further treatment with insulin drip. Medications: Reviewed Infusion Medications Scheduled Medications lidocaine 1 patch Transdermal Daily sodium chloride flush 10 mL Intravenous 2 times per day enoxaparin 30 mg Subcutaneous BID dexamethasone 6 mg Oral Daily PRN Meds: sodium chloride flush, acetaminophen OR acetaminophen, polyethylene glycol, promethazine OR ondansetron, guaiFENesin- dextromethorphan, zolpidem No intake or output data in the 24 hours ending 05/06/20 1434 Exam: BP (!) 145/76 Pulse 115 Temp 98.3 F (36.8 C) (Oral) Resp 20 Ht 5' 7 (1.702 m) Wt 273 lb (123.8 kg) LMP (LMP Unknown) SpO2 91% BMI 42.76 kg/m 44-year-old female. Morbidly obese. Resting comfortably prior to entering the room. Patient has removed her O2 nasal cannula. Normocephalic, atraumatic, pupils are equal and reactive to light, thick neck Lungs are clear bilaterally, no wheezing or rhonchi or increased work of breathing noted + Nonproductive cough Sinus tachycardia in the low 100s Obese abdomen, soft, nontender to palpation Lower extremities no edema, erythema or asymmetry No rashes or lesions are noted on exposed areas Labs: Recent Labs 05/05/20 0915 05/05/20 1021 05/06/20 0713 WBC 3.6* -- 3.4* HGB 14.3 13.9 13.1 HCT 42.0 -- 39.2 PLT 231 -- 254 Recent Labs 05/05/20 0915 05/05/20 1021 05/06/20 0713 NA 136 -- 133* K 4.3 -- 4.2 CL 95 -- 97 CO2 22 -- 20 BUN 10 -- 11 CREATININE 0.63 0.5* 0.7 0.53 CALCIUM 8.8 -- 8.9 Recent Labs 05/05/20 0915 05/06/20 0713 AST 34 21 ALT 18 13 BILITOT 0.4 0.3 ALKPHOS 86 76 No results for input(s): INR in the last 72 hours. Recent Labs 05/05/20 0915 TROPONINI <0.010 Urinalysis: Lab Results Component Value Date NITRU NEGATIVE 04/30/2020 WBCUA 6 04/30/2020 BACTERIA 1+ 04/30/2020 BACTERIA MANY 04/30/2020 RBCUA >182 04/30/2020 BLOODU LARGE (3+) 04/30/2020 SPECGRAV 1.018 04/30/2020 GLUCOSEU 250 04/30/2020 GLUCOSEU NEG 10/14/2011 Radiology: US DUP LOWER EXTREMITIES BILATERAL VENOUS Final Result NO SONOGRAPHIC EVIDENCE OF DEEP VENOUS THROMBOSIS WITHIN THE BILATERAL LOWER EXTREMITIES. CTA Chest W WO (PE study) Final Result There are patchy alveolar opacities scattered throughout all segments of both lungs indicating pneumonia which may represent viral, COVID-19 pneumonia versus other etiologies. . No evidence of thoracic aortic dissection or aneurysm. The study is negative for pulmonary emboli. XR CHEST PORTABLE Final Result There are alveolar opacities which may represent early infiltrates, pneumonia. The differential includes COVID-19 pneumonia versus other etiologies Assessment/Plan: Active Hospital Problems Diagnosis Date Noted COVID-19 virus infection [U07.1] 05/05/2020 COVID-19 virus infection Plan: - continue to monitor respiratory status and need for oxygen therapy. -Lower extremity ultrasound negative for DVT -Continue Decadron -Inhalers -Infectious disease to see, will defer the need to initiate remdesivir to infectious disease -Daily CBC BMP -Continue supportive care T2DM with steroid-induced hyperglycemia -Home insulin reordered -Sliding scale and carb controlled diet Hyperlipidemia: New home statin Additional work up or/and treatment plan may be added today or then after based on clinical progression. I am managing a portion of pt care. Some medical issues are handled by other specialists. Additional work up and treatment should be done in out pt setting by pt PCP and other out pt providers. Diet: DIET CARB CONTROL; Code Status: Full Code PT/OT Eval * Torito Preciado - 05/06/2020 11:55 AM EST Spiritual Care Services Summary of Visit: Consult placed to discuss AD, however, patient did not answer her phone. Spiritual CAre to continueto follow Spiritual Assessment/Intervention/Outcomes: Encounter Summary Services provided to:: Patient not available(Did not answer phone) Continue Visiting: Yes(Follow up AD) Advance Directives (For Healthcare) Pre-existing DNR Comfort Care/DNR Arrest/DNI Order: No Healthcare Directive: No, patient does not have an advance directive for healthcare treatment Information on Healthcare Directives Requested: Yes Patient Requests Assistance: Yes, referral made to mine foreman Values / Beliefs Do you have any ethnic, cultural, sacramental, or spiritual islam needs you would like us to beaware of while you are in the hospital?: No Care Plan: Follow up with AD consult. Spiritual Care Services To reach a mine foreman for emotional and spiritual support, place an EPIC consult request. If a mine foreman is needed immediately, dial 0 and ask to page the on-call mine foreman. * Alyssa Montero RN - 05/06/2020 5:24 AM EST Medicated with tylenol and phenergan for pain and nausea. Gave 2 orange juice. * Shayna Watkins RN - 05/05/2020 10:02 PM EST End of shift summary: Patient A & O x 4. Patient c/o generalized pain and malaise. Patient is afebrile, does c/o nausea. Medicated once with phenergan and once with Zofran. Patient given Tylenol x 2 for c/o generalized pain all over. US of stephanie LE done this evening, negative for DVT. Patient requested sleeping pill, Ambien ordered and administered. Pt c/o pop burning her throat ; juice given per request. Patient denies any further needs. documented in this encounter* Kory Hill RCP - 05/28/2020 3:36 AM EST Ally Fraga Respiratory Therapy Evaluation Current Order: combivent q6 Home Regimen: prn per patient Ordering Physician: Becky Re-evaluation Date: 05/31 Diagnosis: covid-19 Patient Status: Stable / Unstable + Physician notified The following MDI Criteria must be met in order to convert aerosol to MDI with spacer. If unable tomeet, MDI will be converted to aerosol: [] Patient able to demonstrate the ability to use MDI effectively [] Patient alert and cooperative [] Patient able to take deep breath with 5-10 second hold [] Medication(s) available in this delivery method [] Peak flow greater than or equal to 200 ml/min Current Order Substituted To (same drug, same frequency) Aerosol to MDI [] Albuterol Sulfate 0.083% unit dose by aerosol Albuterol Sulfate MDI 2 puffs by inhalation with spacer [] Levalbuterol 1.25 mg unit dose by aerosol Levalbuterol MDI 2 puffs by inhalation with spacer [] Levalbuterol 0.63 mg unit dose by aerosol Levalbuterol MDI 2 puffs by inhalation with spacer [] Ipratropium Nora 0.02% unit dose by aerosol Ipratropium Nora MDI 2 puffs by inhalation with spacer [] Duoneb (Ipratropium + Albuterol) unit dose by aerosol Ipratropium MDI + Albuterol MDI 2 puffs byinhalation w/spacer MDI to Aerosol [] Albuterol Sulfate MDI Albuterol Sulfate 0.083% unit dose by aerosol [] Levalbuterol MDI 2 puffs by inhalation Levalbuterol 1.25 mg unit dose by aerosol [] Ipratropium Nora MDI by inhalation Ipratropium Nora 0.02% unit dose by aerosol [] Combivent (Ipratropium + Albuterol) MDI by inhalation Duoneb (Ipratropium + Albuterol) unit doseby aerosol Treatment Assessment [Frequency/Schedule]: Change frequency to: _combivent q4prn per Protocol, P&T, [facility] Points 0 1 2 3 4 Pulmonary Status Non-Smoker [x] Smoking history < 20 pack years [] Smoking history ? 20 pack years [] Pulmonary Disorder (acute or chronic) [] Severe or Chronic w/ Exacerbation [] Surgical Status No [x] Surgeries General [] Surgery Lower [] Abdominal Thoracic or [] Upper Abdominal Thoracic with PulmonaryDisorder [] Chest X-ray Clear/Not Ordered [] Chronic Changes Results Pending [] Infiltrates, atelectasis, pleural effusion, or edema [] Infiltrates in more thanone lobe [x] Infiltrate + Atelectasis, &/or pleural effusion [] Respiratory Pattern Regular, RR = 12-20 [x] Increased, RR = 21-25 [] SNOW, irregular, or RR = 26-30 [] Decreased FEV1 or RR = 31-35 [] Severe SOB, use of accessory muscles, or RR ? 35 [] Mental Status Alert, oriented, Cooperative [x] Confused but Follows commands [] Lethargic or unable to follow commands [] Obtunded[] Comatose [] Breath Sounds Clear to auscultation [x] Decreased unilaterally or in bases only [] Decreased bilaterally [] Crackles or intermittent wheezes [] Wheezes [] Cough Strong, Spontan., & nonproductive [x] Strong, spontaneous, & productive [] Weak, Nonproductive [] Weak, productive or with wheezes [] No spontaneous cough or may require suctioning [] Level of Activity Ambulatory [] Ambulatory w/ Assist [x] Non-ambulatory [] Paraplegic [] Quadriplegic [] Total Score:__4 Triage Score:___5 Tri Triage: 1. (>20) Freq: Q3 2. (16-20) Freq: Q4 3. (11-15) Freq: QID & Albuterol Q2 PRN 4. (6-10) Freq: TID & Albuterol Q2 PRN 5. (0-5) Freq Q4prn * Suzette No RN - 05/28/2020 2:35 AM EST Pt A&Ox4. Pt came in with complaints of SOB, nausea and flank pain. Pt tested positive for COVID-19 on 04/30 and 05/25, droplet plus precautions in place. Pt complaining of dyspnea with exertion and non-productive cough. Pt currently denies any N/V/D, chest pain or dizziness. Pt ambulated to bathroom, tolerated well. Pt provided with a snack. Pt orientated to the room. Call light within reach.Will continue to monitor. documented in this encounter* Yifan Ponce RN - 04/22/2019 8:[address] Washington in to see patient. instructed this nurse to discharge patient this morning. * Rubi Cheng RN - 04/21/2019 9:59 PM EDT Assumed care of patient tognight. Assessment complete and meds were given VS stable. Patient complaining of right flank pain still. All urine being strained. Patient up independent and denies any needs at this time. Call schmid within reach will continue to monitor. * Luke Mcintyre MD - 04/21/2019 7:[address] with and without contrast from the evening of 04/21/2019 was reviewed no evidence of hydronephrosis Small calcification noted in the right kidney is a parenchymal calcification not within the collecting system No evidence of calculus within the collecting system of the right kidney Patient's current pain not secondary to renal calculi Probable neuropathy No further intervention indicated by urology Urology sign off Luke Mcintyre MD * Rosemarie Kurtz RN - 04/21/2019 12:30 PM EDT Assumed care of pt, pt is A/Ox4. Pt is experiencing right sided flank pain. States that it is throbbing with occasional stabbing pain. Pt is being treated with Diluadid, pt has good relief for a while; asks for PRN pain meds regularly. States that her pain is pretty bad Pt took a shower, independently. Knows how to make needs know, call light within reach . Pt requested that her IV fluids be disconnected, Said to keep them running. Educated pt on the reason why. Urine has been strained; no stone noted. Sediment noted. * Andrew Washington MD - 04/21/2019 11:55 AM EDT Gisel Carlton is a 43 y.o. female patient. Pt was seen and evalauted, feels like she is going to pass the kidney stones from previous experience. Straining all the urine. Still complaining of pain.Awaiting urology recommendation Current Facility-Administered Medications Medication Dose Route Frequency Provider Last Rate Last Dose insulin lispro (HUMALOG) injection vial 12 Units 12 Units Subcutaneous TID Andrew Washington MD 0.9 % sodium chloride infusion Intravenous Continuous Andrew Washington MD 125 mL/hr at 04/21/19 0915 HYDROmorphone (DILAUDID) injection 0.5 mg 0.5 mg Intravenous Q4H PRN Andrew Washington MD 0.5 mg at 04/21/19 1042 oxyCODONE-acetaminophen (PERCOCET) 5-325 MG per tablet 1 tablet 1 tablet Oral Q6H PRN Andrew Washington MD metoclopramide (REGLAN) injection 10 mg 10 mg Intravenous Q6H PRN Titus Call DO 10 mg at 04/21/19 0540 orphenadrine (NORFLEX) extended release tablet 100 mg 100 mg Oral BID Tamela Morales MD 100 mg at 04/21/19 0850 lidocaine 4 % external patch 3 patch 3 patch Transdermal Daily Tamela Morales MD 2 patch at 04/20/19 0817 naproxen (NAPROSYN) tablet 250 mg 250 mg Oral TID Tamela Morales MD 250 mg at 04/21/19 1041 albuterol sulfate HFA 108 (90 Base) MCG/ACT inhaler 2 puff 2 puff Inhalation Q4H PRN Milan Morataya MD dicyclomine (BENTYL) capsule 10 mg 10 mg Oral 4x Daily AC & HS Milan Morataya MD 10 mg at 04/21/19 1042 fluticasone (FLONASE) 50 MCG/ACT nasal spray 1 spray 1 spray Each Nostril Daily Milan Morataya MD1 spray at 04/21/19 0850 pantoprazole (PROTONIX) tablet 40 mg 40 mg Oral QAM AC Milan Morataya MD 40 mg at 04/21/19 0536 phenazopyridine (PYRIDIUM) tablet 100 mg 100 mg Oral TID PRN Milan Morataya MD rosuvastatin (CRESTOR) tablet 20 mg 20 mg Oral Daily Milan Morataya MD 20 mg at 04/21/19 0850 sodium chloride flush 0.9 % injection 10 mL 10 mL Intravenous 2 times per day Milan Morataya MD 10 mL at 04/20/192114 sodium chloride flush 0.9 % injection 10 mL 10 mL Intravenous PRN Milan Morataya MD magnesium hydroxide (MILK OF MAGNESIA) 400 MG/5ML suspension 30 mL 30 mL Oral Daily PRN Milan Morataya MD 30 mL at 04/19/19 0033 ondansetron (ZOFRAN) injection 4 mg 4 mg Intravenous Q6H PRN Milan Morataya MD 4 mg at 04/20/19 1243 enoxaparin (LOVENOX) injection 40 mg 40 mg Subcutaneous Daily Milan Morataya MD 40 mg at acetaminophen (TYLENOL) tablet 650 mg 650 mg Oral Q4H PRN Milan Morataya MD cefTRIAXone (ROCEPHIN) 1 g IVPB in 50 mL D5W minibag 1 g Intravenous Q24H Milan Morataya MD Stopped at 04/21/19 0055 glucose (GLUTOSE) 40 % oral gel 15 g 15 g Oral PRN Milan Morataya MD dextrose 50 % IV solution 12.5 g Intravenous PRN Milan Morataya MD glucagon (rDNA) injection 1 mg 1 mg Intramuscular PRN Mlian Morataya MD dextrose 5 % solution 100 mL/hr Intravenous PRN Milan Morataya MD insulin lispro (HUMALOG) injection vial 0-12 Units 0-12 Units Subcutaneous TID WC Milan Morataya MD 8 Units at 04/21/19 0849 insulin lispro (HUMALOG) injection vial 0-6 Units 0-6 Units Subcutaneous Nightly Milan Morataya MD 3 Units at 04/20/192118 Allergies Allergen Reactions Fentanyl Itching Pcn [Penicillins] Swelling Total body swelling- only injection, able to take oral amox Demerol Hives Morphine Hives Nubain [Nalbuphine Hcl] Hives Zithromax [Azithromycin] Swelling Aspirin nosebleeds Ketorolac Tromethamine Rash Active Problems: Diabetic polyneuropathy (HCC) UTI (urinary tract infection) Acute exacerbation of Chronic right flank pain Muscular pain in the flank region Resolved Problems: * No resolved hospital problems. * Blood pressure (!) 120/56, pulse 81, temperature 98.1 F (36.7 C), temperature source Oral, resp. rate 17, height 5' 7 (1.702 m), weight 270 lb (122.5 kg), SpO2 98 %, not currently . Subjective: Symptoms: She reports malaise and weakness. No shortness of breath, cough, chest pain, headache, chest pressure, anorexia, diarrhea or anxiety. Diet: No nausea or vomiting. Objective: General Appearance: Comfortable, well-appearing and in no acute distress. Vital signs: (most recent): Blood pressure (!) 120/56, pulse 81, temperature 98.1 F (36.7 C), temperature source Oral, resp. rate 17, height 5' 7 (1.702 m), weight 270 lb (122.5 kg), SpO2 98 %, not currently . Lungs: Normal effort. Heart: Normal rate. Regular rhythm. S1 normal and S2 normal. Abdomen: Abdomen is soft. Bowel sounds are normal. There is no epigastric area or suprapubic area tenderness. Pulses: Distal pulses are intact. Neurological: Patient is alert and oriented to person, place and time. Pupils: Pupils are equal, round, and reactive to light. Skin: Warm and dry. Lab Results Component Value Date WBC 5.2 04/21/2019 HGB 12.3 04/21/2019 HCT 37.1 04/21/2019 MCV 81.0 (L) 04/21/2019 PLT 235 04/21/2019 Lab Results Component Value Date NA 133 04/21/2019 K 4.6 04/21/2019 K 3.8 04/18/2019 CL 100 04/21/2019 CO2 19 04/21/2019 BUN 8 04/21/2019 CREATININE 0.50 04/21/2019 GLUCOSE 316 04/21/2019 GLUCOSE 284 04/12/2019 CALCIUM 8.6 04/21/2019 Assessment & Plan 1) acute pylonephtiris/UTI/SIRS secondary to UTI, ? Passing kidney stone , cT abd did not show any kidney stones Fu urine cx C/w IV abx For urology recommendation 2) dehydration resolved 3) DM 2 not controlled Increase insulin with meals Anticipated discharge tomorrow 4) morbid obesity Counseling given Andrew Washington MD 04/21/2019 * Cristi Mcdaniels MD - 04/21/2019 9:21 AM EDT Infectious Disease Patient Name: Gisel Carlton Date: 04/21/2019 Date of : 1975 Nephrolithiasis Possible pyelonephritis Patient having flank pain and hematuria Urinalysis did not show inflammation Repeat urine culture shows no growth Review of Systems Constitutional: Negative for chills, diaphoresis, fatigue and fever. Respiratory: Negative. Cardiovascular: Negative. Gastrointestinal: Negative. Genitourinary: Negative. BP (!) 120/56 Pulse 81 Temp 98.1 F (36.7 C) (Oral) Resp 17 Ht 5' 7 (1.702 m) Wt 270 lb (122.5 kg) SpO2 98% BMI 42.29 kg/m Physical Exam Cardiovascular: Normal heart sounds. No murmur heard. Pulmonary/Chest: Effort normal and breath sounds normal. No respiratory distress. She has no wheezes. She has no rales. She exhibits no tenderness. Abdominal: Bowel sounds are normal. She exhibits no distension and no mass. There is CVA tenderness. Right CVA tenderness Skin: Skin is dry. . EXAMINATION: CT ABDOMEN PELVIS WO CONTRAST CLINICAL HISTORY: Flank pain COMPARISONS: March 20, 2019 TECHNIQUE: Spiral axial images of the pelvis were obtained without contrast enhancement. Multiplanar two-dimensional reformatting was completed at CT console. Comparison to prior examination. FINDINGS: Overall size position and contour of the kidneys is unremarkable. Both kidneys are somewhat lobulated. This is a variation of normal anatomy. There is no hydronephrosis. There is punctate medullary calcification near the upper pole of the right kidney. There are no calculi within the collecting system of either kidney. Incidentally noted is a small phlebolith in the right ovarian vein near its confluence with the inferior vena cava. Urinary bladder is nearly empty and unremarkable. The uterus and adnexa are absent. There is no postobstructive perinephric stranding. There is no sign of an abscess or mass associated with the tract. The liver is unremarkable. Bile ducts are not dilated. The gallbladder is surgically absent. There is a cholecystectomy romie. The pancreas is unremarkable. The spleen is unremarkable. Adrenal glands are normal. The abdominal aorta and inferior vena cava. The stomach, small bowel and colon are unremarkable. The appendix contains a small amount of high density material, new since March 20, 2009. This could represent a small amount of inspissated oral contrast. There is no sign of acute appendicitis. There is no evidence of colitis. There is no diverticulitis. The abdominal wall is intact. The lumbar spine is unremarkable. The lung bases are unremarkable. Impression NO ACUTE PROCESS COMPARED TO 2018. Repeat urinalysis does not show white cells but shows a large amount of red blood cells URINE CULTURE [[id number]] Collected: 04/19/19 2300 Order Status: Completed Specimen: Urine, clean catch Updated: 04/21/19814 Urine Culture, Routine No growth 24 hours ASSESSMENT: Patient Active Problem List Diagnosis Headache Uncontrolled type 2 diabetes mellitus with complication, with long-term current use of insulin (HCC) Hyperlipidemia GERD (gastroesophageal reflux disease) Recurrent kidney stones Chest pain Steatosis of liver Hypertension Adiposity Tubular adenoma Flank pain Torticollis Diabetic polyneuropathy (HCC) Chronic abdominal pain Chronic lower back pain Opiate use Umbilical hernia without obstruction and without gangrene Acquired absence of other specified parts of digestive tract 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) Pure hypercholesterolemia, unspecified Acute hyperglycemia Recurrent sinusitis UTI (urinary tract infection) Acute exacerbation of Chronic right flank pain Muscular pain in the flank region PLAN: Nephrolithiasis Possible pyelonephritis Patient acting more like kidney stone at this point as opposed to pyelonephritis Okay to switch to oral antibiotics with Levaquin for 7 to 10 days After evaluation by urology * Cristi Mcdaniels MD - 04/20/2019 10:34 AM EDT Infectious Disease Patient Name: Gisel Carlton Date: 04/20/2019 Date of : 1975 Right pyelonephritis History of Present Illness: Presenting with right flank pain on 04/17/2019 Associated with nausea vomiting fever CT scan from 04/14/[address] scan from 04/17/2019 showed no evidence of infection The scan from 04/13/2019 did show a 2 mm right kidney stone inflammatory urine on admission to [facility] which appears to have slightly less inflammation than urinalysis at [facility] from the Just released from hospital being treated for pyelonephritis on 04/15/2019 from [facility] discharged on oral Levaquin Continues to continue right flank pain without any improvement She has had no fevers Heart rate is come down Review of Systems Constitutional: Positive for fatigue. Negative for chills, diaphoresis and fever. HENT: Negative. Respiratory: Negative. Cardiovascular: Negative. Gastrointestinal: Negative. Genitourinary: Negative. Musculoskeletal: Negative. Neurological: Negative. BP (!) 133/51 Pulse 93 Temp 98.1 F (36.7 C) (Oral) Resp 17 Ht 5' 7 (1.702 m) Wt 270 lb (122.5 kg) SpO2 95% BMI 42.29 kg/m Physical Exam Cardiovascular: Normal heart sounds. No murmur heard. Pulmonary/Chest: Effort normal and breath sounds normal. No respiratory distress. She has no wheezes. She has no rales. She exhibits no tenderness. Abdominal: Bowel sounds are normal. She exhibits no distension and no mass. There is CVA tenderness. Right CVA tenderness Skin: Skin is dry. Blood pressure (!) 133/51, pulse 93, temperature 98.1 F (36.7 C), temperature source Oral, resp. rate 17, height 5' 7 (1.702 m), weight 270 lb (122.5 kg), SpO2 95 %, not currently . . EXAMINATION: CT ABDOMEN PELVIS WO CONTRAST CLINICAL HISTORY: Flank pain COMPARISONS: March 20, 2019 TECHNIQUE: Spiral axial images of the pelvis were obtained without contrast enhancement. Multiplanar two-dimensional reformatting was completed at CT console. Comparison to prior examination. FINDINGS: Overall size position and contour of the kidneys is unremarkable. Both kidneys are somewhat lobulated. This is a variation of normal anatomy. There is no hydronephrosis. There is punctate medullary calcification near the upper pole of the right kidney. There are no calculi within the collecting system of either kidney. Incidentally noted is a small phlebolith in the right ovarian vein near its confluence with the inferior vena cava. Urinary bladder is nearly empty and unremarkable. The uterus and adnexa are absent. There is no postobstructive perinephric stranding. There is no sign of an abscess or mass associated with the tract. The liver is unremarkable. Bile ducts are not dilated. The gallbladder is surgically absent. There is a cholecystectomy romie. The pancreas is unremarkable. The spleen is unremarkable. Adrenal glands are normal. The abdominal aorta and inferior vena cava. The stomach, small bowel and colon are unremarkable. The appendix contains a small amount of high density material, new since March 20, 2009. This could represent a small amount of inspissated oral contrast. There is no sign of acute appendicitis. There is no evidence of colitis. There is no diverticulitis. The abdominal wall is intact. The lumbar spine is unremarkable. The lung bases are unremarkable. Impression NO ACUTE PROCESS COMPARED TO 2018. Patient Name: GISEL CARLTON STUDY: CT ABDOMEN AND PELVIS WITH CONTRAST; 04/14/2019 6:35 pm INDICATION: right flank pain. COMPARISON: 04/13/2019. ACCESSION NUMBER(S): [id number] ORDERING CLINICIAN: SAE HORTON TECHNIQUE: Contiguous axial images were obtained through the abdomen and pelvis after the administration of 100 mL Isovue-300 intravenous contrast. Oral contrast was administered. Coronal and sagittal reformations were made. FINDINGS: LOWER CHEST: Lung bases are clear. ABDOMEN: LIVER: Within normal limits. BILE DUCTS: Nondilated. GALLBLADDER: Surgically absent. PANCREAS: Within normal limits. SPLEEN: Within normal limits. ADRENAL GLANDS: Within normal limits. KIDNEYS AND URETERS: The kidneys enhance symmetrically without focal lesion. No hydroureteronephrosis bilaterally. Tiny 2 mm calcification again seen within the upper pole of the right kidney. VESSELS: There is no aneurysmal dilatation of the abdominal aorta. The IVC is within normal limits. BOWEL: There is no bowel obstruction or appreciable bowel wall thickening. Appendix is normal. No focal diverticular disease. PERITONEUM/RETROPERITONEUM/LYMPH NODES: No ascites or free air, no fluid collection. No retroperitoneal fluid collection or lymphadenopathy. ABDOMINAL WALL: Unremarkable. BONE AND SOFT TISSUE: Bones are intact. IMPRESSION: 1. No acute process identified within min pelvis. No change from the prior day's study. 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 female patient. Pt was seen and evalauted, feels like she is going to pass the kidney stones from previous experience. Will start IV fluid, strain the urine. Spoke with nursing about her care Current Facility-Administered Medications Medication Dose Route Frequency Provider Last Rate Last Dose 0.9 % sodium chloride infusion Intravenous Continuous Andrew Washington MD insulin lispro (HUMALOG) injection vial 7 Units 7 Units Subcutaneous TID Andrew Washington MD HYDROmorphone (DILAUDID) injection 0.5 mg 0.5 mg Intravenous Once Andrew Washington MD HYDROmorphone (DILAUDID) injection 0.5 mg 0.5 mg Intravenous Q4H PRN Tamela Morales MD 0.5 mg at 04/20/19 0829 oxyCODONE-acetaminophen (PERCOCET) 5-325 MG per tablet 1 tablet 1 tablet Oral Q6H PRN Tamela Morales MD 1 tablet at 04/20/19 0540 orphenadrine (NORFLEX) extended release tablet 100 mg 100 mg Oral BID Tamela Morales MD 100 mg at 04/20/19 0817 lidocaine 4 % external patch 3 patch 3 patch Transdermal Daily Tamela Morales MD 2 patch at 04/20/19 0817 naproxen (NAPROSYN) tablet 250 mg 250 mg Oral TID Tamela Morales MD 250 mg at 04/20/19 0817 albuterol sulfate HFA 108 (90 Base) MCG/ACT inhaler 2 puff 2 puff Inhalation Q4H PRN Milan Morataya MD dicyclomine (BENTYL) capsule 10 mg 10 mg Oral 4x Daily AC & HS Milan Morataya MD 10 mg at 04/20/19 0607 fluticasone (FLONASE) 50 MCG/ACT nasal spray 1 spray 1 spray Each Nostril Daily Milan Morataya MD1 spray at 04/20/19 0819 pantoprazole (PROTONIX) tablet 40 mg 40 mg Oral QAM AC Milan Morataya MD 40 mg at 04/20/19 0540 phenazopyridine (PYRIDIUM) tablet 100 mg 100 mg Oral TID PRN Milan Morataya MD rosuvastatin (CRESTOR) tablet 20 mg 20 mg Oral Daily Milan Morataya MD 20 mg at 04/20/19 0817 sodium chloride flush 0.9 % injection 10 mL 10 mL Intravenous 2 times per day Milan Morataya MD 10 mL at 04/19/19 2112 sodium chloride flush 0.9 % injection 10 mL 10 mL Intravenous PRN Milan Morataya MD magnesium hydroxide (MILK OF MAGNESIA) 400 MG/5ML suspension 30 mL 30 mL Oral Daily PRN Milan Morataya MD 30 mL at 04/19/19 0033 ondansetron (ZOFRAN) injection 4 mg 4 mg Intravenous Q6H PRN Milan Morataya MD 4 mg at 04/19/19 0735 enoxaparin (LOVENOX) injection 40 mg 40 mg Subcutaneous Daily Milan Morataya MD 40 mg at 817 acetaminophen (TYLENOL) tablet 650 mg 650 mg Oral Q4H PRN Milan Morataya MD cefTRIAXone (ROCEPHIN) 1 g IVPB in 50 mL D5W minibag 1 g Intravenous Q24H Milan Morataya MD Stopped at 04/20/19 0112 glucose (GLUTOSE) 40 % oral gel 15 g 15 g Oral PRN Milan Morataya MD dextrose 50 % IV solution 12.5 g Intravenous PRN Milan Morataya MD glucagon (rDNA) injection 1 mg 1 mg Intramuscular PRN Milan Morataya MD dextrose 5 % solution 100 mL/hr Intravenous PRN Milan Morataya MD insulin lispro (HUMALOG) injection vial 0-12 Units 0-12 Units Subcutaneous TID WC Milan Morataya MD 4 Units at 04/20/19 0815 insulin lispro (HUMALOG) injection vial 0-6 Units 0-6 Units Subcutaneous Nightly Samer Jered Morataya MD 3 Units at 04/19/19 2243 gentamicin (GARAMYCIN) 183.6 mg in dextrose 5 % 100 mL IVPB 1.5 mg/kg Intravenous Q12H Cristi Mcdaniels MD Stopped at 04/20/19 0334 Allergies Allergen Reactions Fentanyl Itching Pcn [Penicillins] Swelling Total body swelling- only injection, able to take oral amox Demerol Hives Morphine Hives Nubain [Nalbuphine Hcl] Hives Zithromax [Azithromycin] Swelling Aspirin nosebleeds Ketorolac Tromethamine Rash Active Problems: Diabetic polyneuropathy (HCC) UTI (urinary tract infection) Acute exacerbation of Chronic right flank pain Muscular pain in the flank region Resolved Problems: * No resolved hospital problems. * Blood pressure (!) 133/51, pulse 93, temperature 98.1 F (36.7 C), temperature source Oral, resp. rate 17, height 5' 7 (1.702 m), weight 270 lb (122.5 kg), SpO2 95 %, not currently . Subjective: Symptoms: She reports malaise and weakness. No shortness of breath, cough, chest pain, headache, chest pressure, anorexia, diarrhea or anxiety. Diet: No nausea or vomiting. Objective: General Appearance: Comfortable, well-appearing and in no acute distress. Vital signs: (most recent): Blood pressure (!) 133/51, pulse 93, temperature 98.1 F (36.7 C), temperature source Oral, resp. rate 17, height 5' 7 (1.702 m), weight 270 lb (122.5 kg), SpO2 95 %, not currently . Lungs: Normal effort. Heart: Normal rate. Regular rhythm. S1 normal and S2 normal. Abdomen: Abdomen is soft. Bowel sounds are normal. There is no epigastric area or suprapubic area tenderness. Pulses: Distal pulses are intact. Neurological: Patient is alert and oriented to person, place and time. Pupils: Pupils are equal, round, and reactive to light. Skin: Warm and dry. Lab Results Component Value Date WBC 7.1 04/18/2019 HGB 12.2 04/18/2019 HCT 39.3 04/18/2019 MCV 86.8 04/18/2019 PLT 253 04/18/2019 Lab Results Component Value Date NA 139 04/18/2019 K 3.8 04/18/2019 CL 103 04/18/2019 CO2 22 04/18/2019 BUN 20 04/18/2019 CREATININE 0.57 04/18/2019 GLUCOSE 204 04/18/2019 GLUCOSE 284 04/12/2019 CALCIUM 8.7 04/18/2019 Assessment & Plan 1) acute pylonephtiris/UTI/SIRS secondary to UTI, ? Passing kidney stone , cT abd did not show any kidney stones Fu urine cx C/w IV abx 2) dehydration better D/c ivf 3) DM 2 stable Anticipated discharge tomorrow 4) morbid obesity Also given Andrew Washington MD 04/20/2019 * Linda Mcclain RN - 04/20/2019 5:47 AM EDT Pt expressed displeasure with not being able to get Dilaudid this morning. Advised that she can't take dilaudid when she is discharged. Pt expressed understanding. Will continue to monitor. * Linda Mcclain RN - 04/20/2019 1:36 AM EDT Pt is resting in bed. Assessment documented. She is tolerating current treatment plan fairly. She had questions on her pain medications changes. Advised that the changes were implemented for anticipaition of her discharge. She expressed understanding. No c/o N/V. Will continue to monitor. * Cristi Mcdaniels MD - 04/19/2019 1:20 PM EDT Infectious Disease Patient Name: Gisel Carlton Date: 04/19/2019 Date of : 1975 Right pyelonephritis History of Present Illness: Presenting with right flank pain on 04/17/2019 Associated with nausea vomiting fever CT scan from 04/14/[address] scan from 04/17/2019 showed no evidence of infection The scan from 04/13/2019 did show a 2 mm right kidney stone inflammatory urine on admission to [facility] which appears to have slightly less inflammation than urinalysis at [facility] from the Just released from hospital being treated for pyelonephritis on 04/15/2019 from [facility] discharged on oral Levaquin Clarity, UA TURBIDAbnormal Clear Final 04/17/2019 9:00 PM [facility] Glucose, Ur >=1000Abnormal Negative mg/dL Final 04/17/2019 9:00 PM [facility] Bilirubin Urine Negative Negative Final 04/17/2019 9:00 PM [facility] Ketones, Urine TRACEAbnormal Negative mg/dL Final 04/17/2019 9:00 PM [facility] Specific [place], UA 1.040 1.005 - 1.030 Final 04/17/2019 9:00 PM [facility] Blood, Urine LARGEAbnormal Negative Final 04/17/2019 9:00 PM [facility] pH, UA 5.5 5.0 - 9.0 Final 04/17/2019 9:00 PM [facility] Protein, UA TRACEAbnormal Negative mg/dL Final 04/17/2019 9:00 PM [facility] Urobilinogen, Urine 0.2 <2.0 E.U./dL Final 04/17/2019 9:00 PM [facility] Nitrite, Urine Negative Negative Final 04/17/2019 9:00 PM [facility] Leukocyte Esterase, Urine SMALLAbnormal Negative Final 04/17/2019 9:00 PM [facility] Urine Reflex to Culture YES Final 04/17/2019 9:00 PM [facility] Patient has multiple urine cultures showing only mixed growth over the past 6 months 04/14/2019 12:36 PM - [facility], Lab In seven Component Value Ref Range & Units Status Collected Lab Color, Urine LINDA STRAW,YELL Final 04/14/2019 11:35 AM [facility] Appearance HAZY CLEAR Final 04/14/2019 11:35 AM EM Specific [place], Urine 1.006 1.005 - 1 Final 04/14/2019 11:35 AM CS EM pH, UA 6.0 5.0 - 8.0 Final 04/14/2019 11:35 AM [facility] Protein, UA NEGATIVE NEGATIVE mg/dL Final 04/14/2019 11:35 AM [facility] Glucose, Urine 50 (TRACE)Abnormal NEGATIVE mg/dL Final 04/14/2019 11:35 AM [facility] Blood, Urine LARGE (3+)Abnormal NEGATIVE Final 04/14/2019 11:35 AM [facility] Ketones, Urine NEGATIVE NEGATIVE mg/dL Final 04/14/2019 11:35 AM [facility] Bilirubin, Urine NEGATIVE NEGATIVE Final 04/14/2019 11:35 AM [facility] Urobilinogen, Urine <2.0 0.0 - 1.9 mg/dL Final 04/14/2019 11:35 AM CS EM Nitrite, Urine POSITIVEAbnormal NEGATIVE Final 04/14/2019 11:35 AM [facility] Leukocyte Esterase, Urine LARGE (3+)Abnormal NEGATIVE Final 04/14/2019 11:35 AM [facility] 04/14/2019 12:36 PM - [facility], Lab In [facility] Component Value Ref Range & Units Status Collected Lab WBC, UA 35Abnormal 0 - 5 /HPF Final 04/14/2019 11:35 AM EM RBC, UA >182Abnormal 0 - 5 /HPF Final 04/14/2019 11:35 AM EM [place] Epithel, UA 2 /HPF Final 04/14/2019 11:35 AM [facility] BACTERIA, URINE 4+Abnormal /HPF Final 04/14/2019 11:35 AM EM SOURCE: URINE COLLECTED: 04/12/19 21:45 ANTIBIOTICS AT [facility].: RECEIVED : 04/13/19 18:25 SITE: R E S U L T S URINE CULTURE,BACTERIAL FINAL 04/14/19 14:43 MIXED URETHRAL LUCIA. Review of Systems Constitutional: Positive for chills, diaphoresis, fatigue and fever. HENT: Negative. Respiratory: Negative. Cardiovascular: Negative. Gastrointestinal: Negative. Genitourinary: Negative. Musculoskeletal: Negative. Neurological: Negative. BP 121/60 Pulse 88 Temp 97.7 F (36.5 C) (Oral) Resp 16 Ht 5' 7 (1.702 m) Wt 270 lb (122.5 kg) SpO2 98% BMI 42.29 kg/m Physical Exam Constitutional: She is oriented to person, place, and time. HENT: Head: Normocephalic. Eyes: Pupils are equal, round, and reactive to light. Conjunctivae are normal. Neck: Normal range of motion. No JVD present. No tracheal deviation present. No thyromegaly present. Cardiovascular: Normal heart sounds. No murmur heard. Pulmonary/Chest: Effort normal and breath sounds normal. No respiratory distress. She has no wheezes. She has no rales. She exhibits no tenderness. Abdominal: Bowel sounds are normal. She exhibits no distension and no mass. There is no tenderness.There is CVA tenderness. There is no rebound and no guarding. Right CVA tenderness Musculoskeletal: Normal range of motion. She exhibits no edema or tenderness. Lymphadenopathy: She has no cervical adenopathy. Neurological: She is oriented to person, place, and time. No cranial nerve deficit. Coordination normal. Skin: Skin is warm and dry. No rash noted. No erythema. No pallor. Blood pressure 121/60, pulse 88, temperature 97.7 F (36.5 C), temperature source Oral, resp. rate 16, height 5' 7 (1.702 m), weight 270 lb (122.5 kg), SpO2 98 %, not currently . . Lab Results Component Value Date WBC 7.1 04/18/2019 HGB 12.2 04/18/2019 HCT 39.3 04/18/2019 MCV 86.8 04/18/2019 PLT 253 04/18/2019 Lab Results Component Value Date NA 139 04/18/2019 K 3.8 04/18/2019 CL 103 04/18/2019 CO2 22 04/18/2019 BUN 20 04/18/2019 CREATININE 0.57 04/18/2019 GLUCOSE 204 04/18/2019 GLUCOSE 284 04/12/2019 CALCIUM 8.7 04/18/2019 EXAMINATION: CT ABDOMEN PELVIS WO CONTRAST CLINICAL HISTORY: Flank pain COMPARISONS: March 20, 2019 TECHNIQUE: Spiral axial images of the pelvis were obtained without contrast enhancement. Multiplanar two-dimensional reformatting was completed at CT console. Comparison to prior examination. FINDINGS: Overall size position and contour of the kidneys is unremarkable. Both kidneys are somewhat lobulated. This is a variation of normal anatomy. There is no hydronephrosis. There is punctate medullary calcification near the upper pole of the right kidney. There are no calculi within the collecting system of either kidney. Incidentally noted is a small phlebolith in the right ovarian vein near its confluence with the inferior vena cava. Urinary bladder is nearly empty and unremarkable. The uterus and adnexa are absent. There is no postobstructive perinephric stranding. There is no sign of an abscess or mass associated with the tract. The liver is unremarkable. Bile ducts are not dilated. The gallbladder is surgically absent. There is a cholecystectomy romie. The pancreas is unremarkable. The spleen is unremarkable. Adrenal glands are normal. The abdominal aorta and inferior vena cava. The stomach, small bowel and colon are unremarkable. The appendix contains a small amount of high density material, new since March 20, 2009. This could represent a small amount of inspissated oral contrast. There is no sign of acute appendicitis. There is no evidence of colitis. There is no diverticulitis. The abdominal wall is intact. The lumbar spine is unremarkable. The lung bases are unremarkable. Impression NO ACUTE PROCESS COMPARED TO 2018. Patient Name: GISEL CARLTON STUDY: CT ABDOMEN AND PELVIS WITH CONTRAST; 04/14/2019 6:35 pm INDICATION: right flank pain. COMPARISON: 04/13/2019. ACCESSION NUMBER(S): [id number] ORDERING CLINICIAN: SAE HORTON TECHNIQUE: Contiguous axial images were obtained through the abdomen and pelvis after the administration of 100 mL Isovue-300 intravenous contrast. Oral contrast was administered. Coronal and sagittal reformations were made. FINDINGS: LOWER CHEST: Lung bases are clear. ABDOMEN: LIVER: Within normal limits. BILE DUCTS: Nondilated. GALLBLADDER: Surgically absent. PANCREAS: Within normal limits. SPLEEN: Within normal limits. ADRENAL GLANDS: Within normal limits. KIDNEYS AND URETERS: The kidneys enhance symmetrically without focal lesion. No hydroureteronephrosis bilaterally. Tiny 2 mm calcification again seen within the upper pole of the right kidney. VESSELS: There is no aneurysmal dilatation of the abdominal aorta. The IVC is within normal limits. BOWEL: There is no bowel obstruction or appreciable bowel wall thickening. Appendix is normal. No focal diverticular disease. PERITONEUM/RETROPERITONEUM/LYMPH NODES: No ascites or free air, no fluid collection. No retroperitoneal fluid collection or lymphadenopathy. ABDOMINAL WALL: Unremarkable. BONE AND SOFT TISSUE: Bones are intact. IMPRESSION: 1. No acute process identified within min pelvis. No change from the prior day's study. 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 female patient. Pt was seen and evalauted, feeling a lot better compared to before, will cont with same abx Current Facility-Administered Medications Medication Dose Route Frequency Provider Last Rate Last Dose insulin lispro (HUMALOG) injection vial 5 Units 5 Units Subcutaneous TID WC Andrew Washington MD 5 Units at 04/19/19 1200 oxyCODONE-acetaminophen (PERCOCET) 5-325 MG per tablet 1 tablet 1 tablet Oral Q4H PRN Andrew Washington MD albuterol sulfate HFA 108 (90 Base) MCG/ACT inhaler 2 puff 2 puff Inhalation Q4H PRN Milan Morataya MD dicyclomine (BENTYL) capsule 10 mg 10 mg Oral 4x Daily AC & HS Milan Morataya MD 10 mg at 04/19/19 1015 fluticasone (FLONASE) 50 MCG/ACT nasal spray 1 spray 1 spray Each Nostril Daily Milan Morataya MD1 spray at 04/19/19 0901 pantoprazole (PROTONIX) tablet 40 mg 40 mg Oral QAM AC Milan Morataya MD 40 mg at 04/19/19 0546 phenazopyridine (PYRIDIUM) tablet 100 mg 100 mg Oral TID PRN Milan Morataya MD rosuvastatin (CRESTOR) tablet 20 mg 20 mg Oral Daily Milan Morataya MD 20 mg at 04/19/19 0853 tiZANidine (ZANAFLEX) tablet 4 mg 4 mg Oral Nightly Milan Morataya MD 4 mg at 04/18/192124 sodium chloride flush 0.9 % injection 10 mL 10 mL Intravenous 2 times per day Milan Morataya MD 10 mL at 04/18/197 sodium chloride flush 0.9 % injection 10 mL 10 mL Intravenous PRN Milan Morataya MD magnesium hydroxide (MILK OF MAGNESIA) 400 MG/5ML suspension 30 mL 30 mL Oral Daily PRN Milan Morataya MD 30 mL at 04/19/19 0033 ondansetron (ZOFRAN) injection 4 mg 4 mg Intravenous Q6H PRN Milan Morataya MD 4 mg at 04/19/19 0735 enoxaparin (LOVENOX) injection 40 mg 40 mg Subcutaneous Daily Milan Morataya MD 40 mg at 853 acetaminophen (TYLENOL) tablet 650 mg 650 mg Oral Q4H PRN Milan Morataya MD cefTRIAXone (ROCEPHIN) 1 g IVPB in 50 mL D5W minibag 1 g Intravenous Q24H Milan Morataya MD Stopped at 04/19/19 0130 glucose (GLUTOSE) 40 % oral gel 15 g 15 g Oral PRN Milan Morataya MD dextrose 50 % IV solution 12.5 g Intravenous PRN Milan Morataya MD glucagon (rDNA) injection 1 mg 1 mg Intramuscular PRN Milan Morataya MD dextrose 5 % solution 100 mL/hr Intravenous PRN Milan Morataya MD insulin lispro (HUMALOG) injection vial 0-12 Units 0-12 Units Subcutaneous TID WC Milan Morataya MD 4 Units at 04/19/19 1158 insulin lispro (HUMALOG) injection vial 0-6 Units 0-6 Units Subcutaneous Nightly Milan Morataya MD 3 Units at 04/18/19 2131 HYDROmorphone (DILAUDID) injection 0.5 mg 0.5 mg Intravenous Q3H PRN Milan Morataya MD 0.5 mg at 04/19/19 0735 metoclopramide (REGLAN) injection 10 mg 10 mg Intravenous Q6H Milan Morataya MD 10 mg at 201 gentamicin (GARAMYCIN) 183.6 mg in dextrose 5 % 100 mL IVPB 1.5 mg/kg Intravenous Q12H Cristi Mcdaniels MD Stopped at 04/19/19 0257 Allergies Allergen Reactions Fentanyl Itching Pcn [Penicillins] Swelling Total body swelling- only injection, able to take oral amox Demerol Hives Morphine Hives Nubain [Nalbuphine Hcl] Hives Zithromax [Azithromycin] Swelling Aspirin nosebleeds Ketorolac Tromethamine Rash Active Problems: UTI (urinary tract infection) Resolved Problems: * No resolved hospital problems. * Blood pressure 121/60, pulse 88, temperature 97.7 F (36.5 C), temperature source Oral, resp. rate 16, height 5' 7 (1.702 m), weight 270 lb (122.5 kg), SpO2 98 %, not currently . Subjective: Symptoms: She reports malaise and weakness. No shortness of breath, cough, chest pain, headache, chest pressure, anorexia, diarrhea or anxiety. Diet: No nausea or vomiting. Objective: General Appearance: Comfortable, well-appearing and in no acute distress. Vital signs: (most recent): Blood pressure 121/60, pulse 88, temperature 97.7 F (36.5 C), temperature source Oral, resp. rate 16, height 5' 7 (1.702 m), weight 270 lb (122.5 kg), SpO2 98 %, not currently . Lungs: Normal effort. Heart: Normal rate. Regular rhythm. S1 normal and S2 normal. Abdomen: Abdomen is soft. Bowel sounds are normal. There is no epigastric area or suprapubic area tenderness. Pulses: Distal pulses are intact. Neurological: Patient is alert and oriented to person, place and time. Pupils: Pupils are equal, round, and reactive to light. Skin: Warm and dry. Lab Results Component Value Date WBC 7.1 04/18/2019 HGB 12.2 04/18/2019 HCT 39.3 04/18/2019 MCV 86.8 04/18/2019 PLT 253 04/18/2019 Lab Results Component Value Date NA 139 04/18/2019 K 3.8 04/18/2019 CL 103 04/18/2019 CO2 22 04/18/2019 BUN 20 04/18/2019 CREATININE 0.57 04/18/2019 GLUCOSE 204 04/18/2019 GLUCOSE 284 04/12/2019 CALCIUM 8.7 04/18/2019 Assessment & Plan 1) acute pylonephtiris/UTI/SIRS secondary to UTI Fu urine cx C/w IV abx 2) dehydration better D/c ivf 3) DM 2 stable Anticipated discharge tomorrow Andrew Washington MD 04/19/2019 * Holly Donaldson RN - 04/19/2019 9:07 AM EDT Patient states she is still having pain, primarily right flank, but it has improved since admission. * Linda Mcclain RN - 04/19/2019 2:01 AM EDT Pt is sleeping in bed. Assessment documented. Has been ambulating in room well. C/o painful passinghard stools. Educated on constipation causes. Tolerating current treatment course well. Will continue to monitor. * Andrew Washington MD - 04/18/2019 12:50 PM EDT Gisel Carlton is a 43 y.o. female patient. Pt was seen and evalauted, feeling a lot better compared to before, will cont with same abx Current Facility-Administered Medications Medication Dose Route Frequency Provider Last Rate Last Dose albuterol sulfate HFA 108 (90 Base) MCG/ACT inhaler 2 puff 2 puff Inhalation Q4H PRN Milan Morataya MD dicyclomine (BENTYL) capsule 10 mg 10 mg Oral 4x Daily AC & HS Milan Morataya MD 10 mg at 04/18/19 1152 fluticasone (FLONASE) 50 MCG/ACT nasal spray 1 spray 1 spray Each Nostril Daily Milan Morataya MD pantoprazole (PROTONIX) tablet 40 mg 40 mg Oral QAM AC Milan Morataya MD 40 mg at 04/18/19 0548 phenazopyridine (PYRIDIUM) tablet 100 mg 100 mg Oral TID PRN Milan Morataya MD rosuvastatin (CRESTOR) tablet 20 mg 20 mg Oral Daily Milan Morataya MD 20 mg at 04/18/19 0817 tiZANidine (ZANAFLEX) tablet 4 mg 4 mg Oral Nightly Milan Morataya MD 4 mg at 04/18/19 0152 sodium chloride flush 0.9 % injection 10 mL 10 mL Intravenous 2 times per day Milan Morataya MD 10 mL at 04/18/19 0818 sodium chloride flush 0.9 % injection 10 mL 10 mL Intravenous PRN Milan Morataya MD magnesium hydroxide (MILK OF MAGNESIA) 400 MG/5ML suspension 30 mL 30 mL Oral Daily PRN Milan Morataya MD ondansetron (ZOFRAN) injection 4 mg 4 mg Intravenous Q6H PRN Mialn Morataya MD enoxaparin (LOVENOX) injection 40 mg 40 mg Subcutaneous Daily Milan Morataya MD 40 mg at 817 acetaminophen (TYLENOL) tablet 650 mg 650 mg Oral Q4H PRN Milan Morataya MD [START ON 04/19/2019] cefTRIAXone (ROCEPHIN) 1 g IVPB in 50 mL D5W minibag 1 g Intravenous Q24H Milan Morataya MD glucose (GLUTOSE) 40 % oral gel 15 g 15 g Oral PRN Milan Morataya MD dextrose 50 % IV solution 12.5 g Intravenous PRN Milan Morataya MD glucagon (rDNA) injection 1 mg 1 mg Intramuscular PRN Milan Morataya MD dextrose 5 % solution 100 mL/hr Intravenous PRN Milan Morataya MD insulin lispro (HUMALOG) injection vial 0-12 Units 0-12 Units Subcutaneous TID WC Milan Morataya MD insulin lispro (HUMALOG) injection vial 0-6 Units 0-6 Units Subcutaneous Nightly Samer Jered Morataya MD HYDROmorphone (DILAUDID) injection 0.5 mg 0.5 mg Intravenous Q3H PRN Samer Jered Morataya MD 0.5 mg at 04/18/19 1153 metoclopramide (REGLAN) injection 10 mg 10 mg Intravenous Q6H Samer Jered Morataya MD 10 mg at Allergies Allergen Reactions Fentanyl Itching Pcn [Penicillins] Swelling Total body swelling- only injection, able to take oral amox Demerol Hives Morphine Hives Nubain [Nalbuphine Hcl] Hives Zithromax [Azithromycin] Swelling Aspirin nosebleeds Ketorolac Tromethamine Rash Active Problems: UTI (urinary tract infection) Resolved Problems: * No resolved hospital problems. * Blood pressure (!) 103/59, pulse 88, temperature 97.7 F (36.5 C), temperature source Oral, resp. rate 16, height 5' 7 (1.702 m), weight 270 lb (122.5 kg), SpO2 100 %, not currently . Subjective: Symptoms: She reports malaise and weakness. No shortness of breath, cough, chest pain, headache, chest pressure, anorexia, diarrhea or anxiety. Diet: No nausea or vomiting. Objective: General Appearance: Comfortable, well-appearing and in no acute distress. Vital signs: (most recent): Blood pressure (!) 103/59, pulse 88, temperature 97.7 F (36.5 C), temperature source Oral, resp. rate 16, height 5' 7 (1.702 m), weight 270 lb (122.5 kg), SpO2 100 %, notcurrently . Lungs: Normal effort. Heart: Normal rate. Regular rhythm. S1 normal and S2 normal. Abdomen: Abdomen is soft. Bowel sounds are normal. There is no epigastric area or suprapubic area tenderness. Pulses: Distal pulses are intact. Neurological: Patient is alert and oriented to person, place and time. Pupils: Pupils are equal, round, and reactive to light. Skin: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 recurrent Major depressive disorder, recurrent Chronic GERD Diabetes mellitus Diabetic gastroparesis Hypertension Hypothyroid Major depressive disorder, recurrent Chief Complaint R Flank Pain/Vomitin g R flank pain, Vomiting R flank pain, Vomiting MDD Right Shoulder Pain MDD Major Depression, Suicidal Flank pain Reason for Visit Depressive disorder due to another medical condition with depressive features Diabetes mellitus Hypertension Suicidal ideation Abdominal pain Shoulder pain, right UTI (urinary tract infection) Major depressive disorder, recurrent Major depressive disorder, recurrent Chronic GERD Diabetes mellitus Diabetic gastroparesis Hypertension Hypothyroid Major depressive disorder, recurrent Right flank pain Chief Complaint R Flank Pain/Vomitin g R flank pain, Vomiting R flank pain, Vomiting MDD Right Shoulder Pain MDD Major Depression, Suicidal Flank pain Reason for Visit Depressive disorder due to another medical condition with depressive features Diabetes mellitus Hypertension Suicidal ideation Abdominal pain Shoulder pain, right UTI (urinary tract infection) Major depressive disorder, recurrent Major depressive disorder, recurrent Chronic GERD Diabetes mellitus Diabetic gastroparesis Hypertension Hypothyroid Major depressive disorder, recurrent Major depressive disorder, recurrent Right flank pain Suicidal ideation Chief Complaint Right Shoulder Pain MDD Reason for Visit Major depressive dis order, recurrent Suicidal ideation Chief Complaint chest pain hx recent surgery Additional Source Comments INFORMATION SOURCE (unrecogn ized section and content) DATE CREATED AUTHOR 09/26/2018 [facility] DATE CREATED AUTHOR AUTHOR'S ORGANIZ ATION 12/17/2018 [facility] DATE CREATED AUTHOR AUTHOR'S ORGANIZ ATION 07/16/2019 [facility] DATE CREATED AUTHOR AUTHOR'S ORGANIZ ATION 03/16/2020 [employer] DATE CREATED AUTHOR AUTHOR'S ORGANIZ ATION 11/23/2020 [facility] DATE CREATED AUTHOR AUTHOR'S ORGANIZ ATION 12/16/2020 [facility] DATE CREATED AUTHOR AUTHOR'S ORGANIZ ATION 02/07/2021 [facility] DATE CREATED AUTHOR AUTHOR'S ORGANIZ ATION 08/01/2021 [facility] DATE CREATED AUTHOR AUTHOR'S ORGANIZ ATION 10/31/2021 [facility] dical Specialist DATE CREATED AUTHOR AUTHOR'S ORGANIZ ATION 11/15/2021 [facility] DATE CREATED AUTHOR AUTHOR'S ORGANIZ ATION 11/21/2021 [facility] DATE CREATED AUTHOR AUTHOR'S ORGANIZ ATION 12/20/2021 [facility] DATE CREATED AUTHOR AUTHOR'S ORGANIZ ATION 01/22/2022 [facility] DATE CREATED AUTHOR AUTHOR'S ORGANIZ ATION 02/07/2022 [facility] DATE CREATED AUTHOR AUTHOR'S ORGANIZ ATION 05/20/2022 [facility] DATE CREATED AUTHOR AUTHOR'S ORGANIZ ATION 05/29/2022 [facility] DATE CREATED AUTHOR AUTHOR'S ORGANIZ ATION 08/16/2022 [facility] DATE CREATED AUTHOR AUTHOR'S ORGANIZ ATION 10/23/2022 [facility] DATE CREATED AUTHOR AUTHOR'S ORGANIZ ATION 05/11/2023 [facility] DATE CREATED AUTHOR AUTHOR'S ORGANIZ ATION 06/08/2023 [facility] DATE CREATED AUTHOR AUTHOR'S ORGANIZ ATION 07/10/2023 [facility] DATE CREATED AUTHOR AUTHOR'S ORGANIZ ATION 07/11/2023 [facility] Reason for Visit (unrecogniz ed section and content) Reason Comments Flank Pain Specialty Diagnoses / Procedures Referred By Contac t Referred To Contact Diagnoses Hypotension Prolonged QT interval Right flank pain 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 nausea. Reason Comments Abdominal Pain Reason Comments Flank Pain right Reason Comments Abdominal Pain vomiting, back pain started today Reason Comments Flank Pain left flank pain with nausea started today Reason Comments Flank Pain right side flank mae n started this morning 730am. Reason Comments Emesis Reason Comments Flank Pain pt states she has hx of kidney stones Nausea Emesis Reason Comments Generalized Body Aches Reason Comments Generalized Body Aches Fever Reason Comments Other pt dx with Covid 19 yesterday, states she is feeling worse Reason Comments Shortness of Breath covid + Status Reason Specialty Diagnoses / Procedures Referred By Contact Referred To Contact Diagnoses COVID-[place] [address] [address] [facility] [address] [place] [address] [facility] Reason Comments Shortness of Breath pt c/o SOB and heart palpitations, Dx with covid on 04/30 Reason Comments Shortness of Breath Hyperglycemia Status Reason Specialty Diagnoses / Procedures Referred By Contact Referred To Contact Diagnoses COVID-19 [place] [address] [place] [address] [employer] Turned On Digital Reason Comments Flank Pain Left flank pain Reason Comments Flank Pain Emesis Reason Comments Abdominal Pain Nausea Diarrhea Emesis Status Reason Specialty Diagnoses / Procedures Referred By Contact Referred To Contact Pending Review Radiology Diagnoses Abnormal liver CT Procedures US ABDOMEN LIMITED US LIVER SPLEEN Skye Jones, CERTIFIED PROSTHETIST VICE PRESIDENT - DIRECTOR OF PHOTOGRAPHY [address] [place] [address] [facility] [address] [place] [address] Reason Comments Flank Pain right Emesis Reason Comments Flank Pain x 1 day Reason Comments Flank Pain Right sided Status Reason Specialty Diagnoses / Procedures Referre d By Contact Referred To Contact Diagnoses UTI (urinary tract infection) Milan Morataya MD [address] [facility] [address] [place] [address] [facility] Turned On Digital Reason Comments Flank Pain to ED with c/o of le ft flank pain that started today. also complains of urinary pain X 3 days rates pain 8/10 Reason Comments Flank Pain x 3 hours Reason Comments Abdominal Pain Flank Pain Reason Comments Chest Pain Syncope Nausea Dizziness Hyperglycemia Reason Comments Chest Pain Reason Comments Other Reason Comments Flank Pain Right ABD pain and r ight flank pain that started 2 hours ago Reason Comments Generalized Body Aches started about 2-3 days ago Sore Throat started about 2-3 da ys ago Headache started about 2-3 da ys ago Reason Comments Post-op Problem Flank Pain Status Reason Specialty Diagnoses / Procedures Referre d By Contact Referred To Contact Diagnoses Hematuria Reason Comments Follow-up cystoscopy with sten t removal Reason Comments Flank Pain N/V Reason Comments Cough x 5days daughter cov id positive (no vac) Nasal Congestion Sinus Congestion Loss Of Smell Sore Throat Reason Comments Flank Pain right side Reason Comments Flank Pain w/ emesis, here this week for same Specialty Diagnoses / Procedures Referred By Contac t Referred To Contact Radiology Diagnoses Cervical radiculopathy Cervical spondylosis without myelopathy Procedures MRI CERVICAL SPINE WO CONTRAST Delphine Freeman, CERTIFIED PROSTHETIST VICE PRESIDENT - DIRECTOR OF PHOTOGRAPHY [address] [facility] [address] [place] [address] Referral ID Status Reason Start Date Expiration Date Visits Re quested Visits Authorized [id number] Closed 10/31/2021 12/30/2021 1 1 Reason Comments Flank Pain Nausea Specialty Diagnoses / Procedures Referred By Nisha t Referred To Contact Diabetes Services Diagnoses Type 2 diabetes mellitus without complication, with long-term current use of insulin ([facility]) Skye Jones, CERTIFIED PROSTHETIST VICE PRESIDENT - DIRECTOR OF PHOTOGRAPHY [address] [place] [address] [facility] [address] [place] [address] Referral ID Status Reason Start Date Expiration Date Visits Requested Visits Authorized [id number] Authorized Specialty Services Required 07/28/2022 07/28/2023 2 2 Reason Comments Flank Pain Right side, since Mo nday with vomiting and nausea, denies dysuria, reports blood tinged urine, hx of kidney stone Reason Comments Flank Pain Right side Reason Comments Abdominal Pain Emesis Since 2200 Referral ID Status Reason Start Date Expiration Date Visits Requested Visits Authorized [id number] Authorized Specialty Services Required 08/04/2022 08/04/2023 5 5 Specialty Diagnoses / Procedures Referred By Nisha t Referred To Contact Diagnoses Cervical stenosis of spine Cervical stenosis of spine [M48.02] Procedures SC ANTERIOR INSTRUMENTATION 4-7 VERTEBRAL SEGMENTS SC ARTHRD ANT INTERDY CERVCL BELW C2 EA ADDL NTRSPC SC INSJ BIOMCHN DEV INTERVERTEBRAL DSC SPC W/ARTHRD SC INSJ BIOMCHN DEV INTERVERTEBRAL DSC SPC W/ARTHRD SC INSJ BIOMCHN DEV INTERVERTEBRAL DSC SPC W/ARTHRD SC ANTERIOR INSTRUMENTATION 2-3 VERTEBRAL SEGMENTS SC ALLOGRAFT FOR SPINE SURGERY ONLY MORSELIZED C5-6, C6-7 ACDF (ANTERIOR CERVICAL DISKECTOMY FUSION) using interbody cages, local morselized autograft, morselized allograft and plate and screws ; ; 2.5 HOURS / 1 C-ARM / ESMER SITE / SUPINE ON DOUGHNUT / OPERATIVE MICROSCOPE / JESSEE SET / MEDTRONIC ZEVO, TITANIUM CERVICAL CAGES, EBENEZER GRAFT PT WILL STOP CELEBREX 7 DAYS PRIOR TO SURGERY / PT WILL NOT TAKE TRULICITY INJECTION ON 06/22/2023/ Ruben Dias MD [address] [address] [facility] [address] [place] [address] Referral ID Status Reason Start Date Expiration Date Visits Re quested Visits Authorized [id number] 1 1 Ordered Prescriptions (unrec ognized section and content) Prescription Sig Dispensed Refills Start Date End Da te promethazine (PHENERGAN) 25 MG tablet Take 1 tablet by mouth every 6 hours as needed for Nausea 20 tablet 0 07/01/2020 07/08/2020 HYDROcodone-acetaminoph en (NORCO) 5-325 MG per tabletIndications:Acute cystitis without hematuria,Left flank pain Take 1 tablet by mouth every 6 hours as needed for Pain for up to 3 days. Intended supply: 3 days. Take lowest dose possible to manage pain 10 tablet 0 07/01/2020 07/04/2020 nitrofurantoin, macrocrystal-monohydrat e, (MACROBID) 100 MG capsule Take 1 capsule by mouth 2 times daily for 10 days 20 capsule 0 07/01/2020 07/11/2020 Prescription Sig Dispensed Refills Start Date End Da te metoclopramide (REGLAN) 10 MG tablet Take 1 tablet by mouth 4 times daily 40 tablet 0 09/27/2020 HYDROcodone-acetaminophe n (NORCO) 5-325 MG per tabletIndications:Right upper quadrant abdominal pain Take 1 tablet by mouth every 6 hours as needed for Pain for up to 3 days. Intended supply: 3 days. Take lowest dose possible to manage pain 10 tablet 0 09/27/2020 09/30/2020 Prescription Sig Dispensed Refills Start Date End Da te phenazopyridine (PYRIDIUM) 100 MG tablet Take 1 tablet by mouth 3 times daily as needed for Pain 9 tablet 0 10/01/2020 10/04/2020 ondansetron (ZOFRAN ODT) [address] 1 tablet under the tongue every 8 hours as needed for Nausea or Vomiting 20 tablet 0 10/01/2020 10/15/2020 HYDROcodone-acetaminophen (NORCO) 5-325 MG per tabletIndications:Acute cystitis with hematuria Take 1 tablet by mouth every 4 hours as needed for Pain for up to 3 days. Intended supply: 3 days. Take lowest dose possible to manage pain 18 tablet 0 10/01/2020 10/04/2020 Prescription Sig Dispensed Refills Start Date End Da te sulfamethoxazole-trimetho prim (BACTRIM DS;SEPTRA DS) 800-160 MG per tablet Take 1 tablet by mouth 2 times daily for 10 days 20 tablet 0 11/25/2020 12/05/2020 ondansetron (ZOFRAN-ODT) 4 MG disintegrating tablet Take 1 tablet by mouth 3 times daily as needed for Nausea or Vomiting 21 tablet 0 11/25/2020 HYDROcodone-acetaminophen (NORCO) 5-325 MG per tabletIndications:Pyelone phritis,Flank pain Take 1 tablet by mouth every 6 hours as needed for Pain for up to 3 days. Intended supply: 3 days. Take lowest dose possible to manage pain 10 tablet 0 11/25/2020 11/28/2020 Prescription Sig Dispensed Refills Start Date End Da te oxyCODONE-acetaminophen (PERCOCET) 5-325 MG per tabletIndications:Right flank pain,Acute cystitis with hematuria Take 1-2 tablets by mouth every 6 hours as needed for Pain for up to 4 doses. 4 tablet 0 04/15/2021 04/16/2021 sulfamethoxazole-trimeth oprim (BACTRIM DS) 800-160 MG per tablet Take 1 tablet by mouth 2 times daily for 7 days 14 tablet 0 04/15/2021 04/22/2021 Prescription Sig Dispensed Refills Start Date End Da te ondansetron (ZOFRAN-ODT) 4 MG disintegrating tablet Take 1 tablet by mouth 3 times daily as needed for Nausea or Vomiting 10 tablet 0 07/10/2022 HYDROcodone-acetaminophen (NORCO) 5-325 MG per tabletIndications:Right flank pain Take 1 tablet by mouth every 6 hours as needed for Pain for up to 3 days. Intended supply: 3 days. Take lowest dose possible to manage pain Max Daily Amount: 4 tablets 10 tablet 0 07/10/2022 07/13/2022 Prescription Sig Dispensed Refills Start Date End Da te phenazopyridine (PYRIDIUM) 100 MG tablet Take 1 tablet by mouth 3 times daily as needed for Pain 9 tablet 0 08/13/2022 08/16/2022 Prescription Sig Dispensed Refills Start Date End Da te oxyCODONE-acetaminophen (PERCOCET) 5-325 MG per tabletIndications:Post-o perative pain,Acute bursitis of left shoulder Take 1-2 tablets by mouth every 8 hours as needed for Pain for up to 7 days. Max Daily Amount: 6 tablets 42 tablet 0 07/09/2023 07/16/2023 Gely Gallardo RN - 07/08/2020 10:38 PM Gely Hill RN - 07/08/2020 9:35 PM Gely Hill RN - 07/08/2020 8:31 PM Gely Singh RN - 07/08/2020 8:13 PM EST ED Notes (unrecognized secti on and content) CT SCAN DISC PROVIDED TO PATIENT DOREEN FRANK INFORMED THAT PATIENT STATES NEITHER NAUSEA OR PAIN MEDICATION HELPED. DOREEN FRANK VERBALIZED UNDERSTANDING DOREEN FRANK INFORMED PATIENT'S HR 120s, ASKED IF HE WOULD LIKE 500mL NS BOLUS ADMIN. DOREEN FRANK STATED YES. THIS NURSE VERBALIZED UNDERSTANDING THIS NURSE ATTEMPTED A 20G PIV IN LAC, BRISK BLOOD RETURN NOTED, THIS NURSE UNABLE TO ADVANCE PIV. 20G PIV REMOVED INTACT, GAUZE AND TAPE PLACED OVER SITE. PT TOLERATED WELL. THIS NURSE THEN ATTEMPTED A 20G PIV IN LFA, NO BLOOD RETURN NOTED. 20G PIV REMOVED INTACT, GAUZE AND TAPE PLACED OVER SITE. PT TOLERATED WELL. BERNARD Carranza RN ASKED TO ATTEMPT ULTRASOUND PIV PT PRESENTS WITH LEFT FLANK PAIN AND VOMITING X 1 DAY. PT STATES SHE HAS HISTORY OF KIDNEY STONES, FEELS SIMILAR TO PREVIOUS KIDNEY STONE EPISODES. PT ALSO REPORTS BURNING URINATION THAT BEGAN TODAY Bed: 33 Expected date: Expected time: Means of arrival: Comments: NEXT PT documented in this encounter Patient placed call light on requesting nausea medication. PT DENIES HISTORY OF GI COMPLICATIONS, DENIES CARDIAC HISTORY. DENIES CHEST PAIN. PT REPORTS TAKING OMEPRAZOLE DAILY. RECENT BELCHING WITH SULFUR LIKE ODOR NOTED PER PT. Bed: 10 Expected date: Expected time: Means of arrival: Comments: NEXT PT PT REPORTS, ABDOMINAL PAIN PAST THREE WEEKS, RECENT 40LB WEIGHT LOSS. N/V/D FOR ENTIRE THREE WEEKS. WAS POSITIVE FOR COVID IN April WITH HOSPITALIZATION. PT DOES NOT HAVE PCP, RECENTLY MOVED TO THE AREA. documented in this encounter Pt stated to this RN that she does not want to get a Ct Scan done since she had one last night. Pt stated that she does not want the Lidocaine patch until she speaks to a Doctor. Doctor Kirit notified PATIENT REPORTS LEFT FLANK PAIN THAT STARTED LAST NIGHT. PATIENT STATES SHE WAS SEEN HERE YESTERDAY. PATIENT WAS DIAGNOSED WITH A UTI YESTERDAY AND GIVEN ANTIBIOTICS. Bed: 16 Expected date: Expected time: Means of arrival: Comments: RUNNER NEEDED documented in this encounter ED PROVIDER NOTE [facility] EMERGENCY DEPARTMENT NAME: Gisel Carlton AGE: 45 y.o. : 1975 VISIT DATE: 07/16/2020 CSN: [id number] PCP: Provider Not in System Chief Complaint Patient presents with Flank Pain Patient presents to the emergency department for complaint of right flank pain. Patient states that she is also having slight dysuria. She explains that she was evaluated here on the and was treated for urinary tract infection. States at that time she had left-sided flank pain. States over the past few days she has just developed this right-sided flank pain. States it significantly worse today. She has had nausea and vomiting as well. Patient has a history of kidney stones. She denies fever or chills. She denies diarrhea. Patient has had a hysterectomy. No other complaints or concerns at this time. Past Medical History: Diagnosis Date Diabetes mellitus (HCC) GERD (gastroesophageal reflux disease) Past Surgical History: Procedure Laterality Date ADENOIDS CHOLECYSTECTOMY HYSTERECTOMY LEG SURGERY TONSILLECTOMY History reviewed. No pertinent family history. Social History Socioeconomic History Marital status: Single Spouse name: Not on file Number of children: Not on file Years of education: Not on file Highest education level: Not on file Occupational History Not on file Social Needs Financial resource strain: Not on file Food insecurity Worry: Not on file Inability: Not on file Transportation needs Medical: Not on file Non-medical: Not on file Tobacco Use Smoking status: Never Smoker Smokeless tobacco: Never Used Substance and Sexual Activity Alcohol use: Never Frequency: Never Drug use: Never Sexual activity: Not on file Lifestyle Physical activity Days per week: Not on file Minutes per session: Not on file Stress: Not on file Relationships Social connections Talks on phone: Not on file Gets together: Not on file Attends islam service: Not on file Active member of club or organization: Not on file Attends meetings of clubs or organizations: Not on file Relationship status: Not on file Other Topics Concern Not on file Social History Narrative Not on file Previous Medications Medication Sig celecoxib (CELEBREX) 100 MG capsule Take 100 mg by mouth 2 (two) times a day . cephALEXin (KEFLEX) 500 MG capsule Take 1 (one) capsule (500 mg total) by mouth 2 (two) times a day for 10 days . insulin lispro (HumaLOG) 100 unit/mL injection Inject under the skin 3 (three) times a day before meals . metFORMIN (GLUCOPHAGE) 500 MG tablet Take 500 mg by mouth 2 (two) times a day with meals . omeprazole (PRILOSEC) 20 MG capsule Take 20 mg by mouth daily . rosuvastatin (CRESTOR) 20 MG tablet Take 20 mg by mouth daily . tiZANidine (ZANAFLEX) 4 MG capsule Take by mouth 2 (two) times a day as needed for muscle spasms . Allergies Allergen Reactions Demerol [Meperidine] Hives Morphine Hives Nubain [Nalbuphine] Hives Penicillins Hives Toradol [Ketorolac] Hives and Itching Fentanyl Rash Review of Systems Constitutional: Negative for activity change, chills, fatigue and fever. HENT: Negative for congestion, ear pain, hearing loss, postnasal drip, rhinorrhea, sore throat and trouble swallowing. Eyes: Negative for photophobia, pain, redness and visual disturbance. Respiratory: Negative for cough, chest tightness, shortness of breath and wheezing. Cardiovascular: Negative for chest pain, palpitations and leg swelling. Gastrointestinal: Negative for abdominal pain, constipation, diarrhea, nausea and vomiting. Genitourinary: Positive for dysuria and flank pain. Negative for difficulty urinating, hematuria and urgency. Musculoskeletal: Negative for arthralgias, back pain, myalgias, neck pain and neck stiffness. Skin: Negative for color change and rash. Neurological: Negative for dizziness, speech difficulty, weakness, numbness and headaches. Psychiatric/Behavioral: Negative for agitation and suicidal ideas. The patient is not nervous/anxious. Patient Vitals for the past 24 hrs: BP Temp Temp src Pulse Resp SpO2 Height Weight 07/16/20 1739 (!) 143/84 98.3 F (36.8 C) Oral (!) 110 16 97 % 07/16/20 1737 5' 7 113.4 kg (250 lb) Physical Exam Vitals signs and nursing note reviewed. Constitutional: General: She is not in acute distress. Appearance: She is well-developed and normal weight. She is not toxic-appearing. HENT: Head: Normocephalic and atraumatic. Right Ear: External ear normal. Left Ear: External ear normal. Nose: Nose normal. Mouth/Throat: Mouth: Mucous membranes are moist. Eyes: Extraocular Movements: Extraocular movements intact. Conjunctiva/sclera: Conjunctivae normal. Neck: Musculoskeletal: Normal range of motion and neck supple. Cardiovascular: Rate and Rhythm: Normal rate and regular rhythm. Pulses: Normal pulses. Heart sounds: Normal heart sounds. Pulmonary: Effort: Pulmonary effort is normal. Breath sounds: Normal breath sounds. Abdominal: General: Bowel sounds are normal. There is no distension. Palpations: Abdomen is soft. Tenderness: There is no abdominal tenderness. There is right CVA tenderness. There is no left CVA tenderness, guarding or rebound. Musculoskeletal: Normal range of motion. General: No deformity. Skin: General: Skin is warm and dry. Neurological: General: No focal deficit present. Mental Status: She is alert and oriented to person, place, and time. Psychiatric: Mood and Affect: Mood normal. Laboratory & Radiographic Imaging (if done): Results for orders placed or performed during the hospital encounter of 07/16/20 BMP Result Value Ref Range Sodium 140 135 - 145 mmol/L Potassium 3.7 3.5 - 5.1 mmol/L Chloride 107 98 - 108 mmol/L Bicarbonate 28 21 - 32 mmol/L Anion Gap 9 (L) 10 - 20 mmol/L Glucose 109 (H) 65 - 99 mg/dL BUN 17 8 - 25 mg/dL Creatinine 0.72 0.40 - 1.10 mg/dL eGFR 101 >=60 mL/min/1.73 m2 BUN/Creatinine Ratio 23.6 (H) 10.0 - 20.0 Calcium 9.7 8.4 - 10.2 mg/dL Hepatic Function Panel (LFT) Result Value Ref Range Total Protein 8.0 6.0 - 8.0 g/dL Albumin 3.9 3.2 - 5.2 g/dL Total Bilirubin 0.5 0.0 - 1.3 mg/dL Bilirubin, Direct 0.2 0.0 - 0.4 mg/dL Alkaline Phosphatase 64 40 - 150 U/L AST 16 0 - 45 U/L ALT 24 14 - 65 U/L Lipase Result Value Ref Range Lipase 199 73 - 393 U/L Lactic Acid, Plasma Result Value Ref Range Lactic Acid 1.4 0.6 - 2.0 mmol/L HCG (QUALITATIVE) Result Value Ref Range Beta-hCG Qual Negative Negative Urinalysis Result Value Ref Range Color, Urine Yellow Colorless, Yellow Clarity, Urine Cloudy (A) Clear Specific [place] 1.029 (H) 1.005 - 1.025 pH, Urine 6.0 5.0 - 7.0 Protein, Urine 30 (A) Negative mg/dL Glucose, Urine Negative Negative mg/dL Ketones, Urine Negative Negative mg/dL Bilirubin, Urine Negative Negative Urobilinogen, Urine <2.0 <2.0 mg/dL Blood, Urine Moderate (A) Negative Nitrite, Urine Negative Negative Leukocyte Esterase, Urine Large (A) Negative WBCs, Urine 9 (H) 0 - 5 /hpf RBCs, Urine >180 (H) 0 - 3 /hpf Bacteria, Urine Rare (A) None Seen /hpf Squamous Epithelial 7 (H) 0 - 4 /hpf Transitional Epithelial <1 0 - 1 /hpf Mucus, Urine Many (A) None Seen, Rare /lpf CBC Auto Differential Result Value Ref Range WBC 9.42 4.50 - 11.00 K/mcL RBC 4.59 4.00 - 5.20 M/mcL Hemoglobin 13.0 12.0 - 16.0 g/dL Hematocrit 39.3 36.0 - 46.0 % MCV 85.6 80.0 - 100.0 fL MCH 28.3 26.0 - 34.0 pg MCHC 33.1 31.0 - 37.0 g/dL Platelets 248 150 - 400 K/mcL RDW - CV 14.2 11.6 - 14.8 % MPV 9.3 (L) 9.4 - 12.4 fL Neutrophils 65.7 % Lymphocytes 25.1 % Monocytes 5.9 % Eosinophils 2.4 % Basophils 0.6 % IG Percent 0.30 % Neutrophils Abs 6.18 1.70 - 7.00 K/mcL Lymphocytes Abs 2.36 0.90 - 4.00 K/mcL Monocytes Abs 0.56 0.30 - 0.90 K/mcL Eosinophils Abs 0.23 0.00 - 0.50 K/mcL Basophils Abs 0.06 0.00 - 0.30 K/mcL IG Absolute 0.03 0.00 - 0.30 K/mcL Nucleated RBC 0.0 % Nucleated RBC Abs 0.00 0.00 - 0.00 K/mcL CT Kidney Stone Final Result Scattered right-sided renal calculi without ureteral calculus. Mildly distended stomach. Additional findings as described above. /[facility] Workstation ID: [id number] Procedures MDM Number of Diagnoses or Management Options Diagnosis management comments: Patient was evaluated on 07/01, 07/08 and today for urinary symptoms and flank pain. Patient was written for [employer] on the of this month. She will finish it on the of this month. Patient's urine culture from last time showed that she is susceptible to penicillins, ampicillin and cefazolin. Patient's white blood cell count seems to be improved but hematuria continues. I discussed this with Dr. Beth. She is in agreement that the patient should continue her Keflex and follow-up with primary care. Recommended urology consultation from here. Discussed all of this with patient and she is in agreement. The patient has been informed that they may have pre-hypertension or hypertension based on a blood pressure reading in the Emergency Department. I recommend that the patient call the primary care provider listed on their discharge instructions or a physician of their choice as soon as possible to arrange follow-up in the next 4 weeks for further evaluation of possible pre-hypertension or hypertension. . Clinical Impression: 1. Right flank pain 2. Acute cystitis with hematuria ED Disposition ED Disposition Condition Comment Discharge Stable Gisel Carlton discharged to home/self care in stable condition. Follow-up Information 1. [facility]. [address] [place] [address] Contact information for after-discharge care Follow-up information has not been specified. Yulissa Saini PA-C 07/16/[id number] Pt states she has had right flank pain for a couple of hours. States that she has had kidney stones before and this feels similar. documented in this encounter Emergency Department Report [facility] EMERGENCY DEPARTMENT Service Date:.09/20/20 PCP: No primary care provider on file. Chief Complaint: Chief Complaint Patient presents with Flank Pain to ED with c/o of left flank pain that started today. also complains of urinary pain X 3 days rates pain 8/10 HPI Gisel Carlton is a 45 y.o. female presents to the ED today due to left flank pain. Patient states symptoms started today. Review of patient medical chart reveals she is had multiple visits to various emergency departments for similar problems. Patient does not appear to have any recent urology follow-up for this problem. Patient states she follow up with urology in the past and tells that she continues to make stones. Patient denies fever or chills denies bowel dysfunction. Review of the medics her reveals a patient has had 8 visits this year since June 29, 2020 for similar complaints. Appears that she normally goes to [facility]. Patient was going to the [facility] system prior to going to [place]. There is no report of cough no report of vaginal discharge. Review of Systems: Review of Systems Genitourinary: Positive for dysuria and flank pain. All other systems reviewed and are negative. Past Medical History: Past Medical History: Diagnosis Date Diabetes mellitus Type 2 GERD (gastroesophageal reflux disease) Hyperlipidemia Past Surgical History: Past Surgical History: Procedure Laterality Date CHOLECYSTECTOMY HYSTERECTOMY Allergies: Allergies Allergen Reactions Asa [Aspirin] nosebleeds Azithromycin Hives Ciprofloxacin Fentanyl Hives Ketorolac Hives Meperidine Hives and Itching Nalbuphine Hives Penicillins Hives Morphine Hives Medications: Patient's Medications New Prescriptions CEPHALEXIN 500 MG CAPSULE Take 1 capsule by mouth every 12 hours for 5 days. Previous Medications CELECOXIB 100 MG CAPSULE celecoxib Celecoxib (Celebrex) 100 mg Capsule Active 100 MG PO Daily April 23, 2020 7:41pm 04-23-2020 [facility] ([id number]) ERGOCALCIFEROL 1.25 MG (23239 UT) CAPSULE 1,250 mcg. INSULIN DEGLUDEC 200 UNIT/ML SOLUTION PEN-INJECTOR INJECTION Inject 100 Units under the skin. INSULIN GLARGINE SC Inject 30 Units under the skin. INSULIN LISPRO 100 UNIT/ML VIAL Inject under the skin. METOPROLOL 25 MG TAB REGULAR RELEASE Take 50 mg by mouth 2 times daily. OMEPRAZOLE [address] CAPSULE Take 20 mg by mouth daily. ONDANSETRON 4 MG TABLET 4 mg. OZEMPIC, 0.25 OR 0.5 MG/DOSE, 2 MG/1.5ML SOLUTION PEN-INJECTOR Inject 0.25 mg weekly for 4 weeks, then increase to 0.5 mg ROSUVASTATIN 20 MG TABLET Take 20 mg by mouth daily. TIZANIDINE 4 MG CAPSULE Take by mouth 2 times daily as needed. TRAZODONE 100 MG TABLET TAKE 1 TABLET BY MOUTH NIGHTLY NEEDED for sleep Modified Medications No medications on file Discontinued Medications No medications on file Family History: History reviewed. No pertinent family history. Social History: Social History Socioeconomic History Marital status: Spouse name: Not on file Number of children: Not on file Years of education: Not on file Highest education level: Not on file Occupational History Not on file Tobacco Use Smoking status: Never Smoker Smokeless tobacco: Never Used Substance and Sexual Activity Alcohol use: Not Currently Drug use: Never Sexual activity: Not on file Other Topics Concern Not on file Social History Narrative Not on file Social Determinants of Health Financial Resource Strain: Difficulty of Paying Living Expenses: Not on file Food Insecurity: Worried About Running Out of Food in the Last Year: Not on file Ran Out of Food in the Last Year: Not on file Transportation Needs: Lack of Transportation (Medical): Not on file Lack of Transportation (Non-Medical): Not on file Physical Activity: Days of Exercise per Week: Not on file Minutes of Exercise per Session: Not on file Stress: Feeling of Stress : Not on file Social Connections: Frequency of Communication with Friends and Family: Not on file Frequency of Social Gatherings with Friends and Family: Not on file Attends Mormonism Services: Not on file Active Member of Clubs or Organizations: Not on file Attends Club or Organization Meetings: Not on file Marital Status: Not on file Intimate Partner Violence: Fear of Current or Ex-Partner: Not on file Emotionally Abused: Not on file Physically Abused: Not on file Sexually Abused: Not on file Physical Exam: Physical Exam Constitutional: Appearance: Normal appearance. HENT: Head: Normocephalic and atraumatic. Right Ear: Tympanic membrane and external ear normal. Left Ear: Tympanic membrane and external ear normal. Nose: Nose normal. Mouth/Throat: Mouth: Mucous membranes are moist. Pharynx: Oropharynx is clear. Eyes: Conjunctiva/sclera: Conjunctivae normal. Pupils: Pupils are equal, round, and reactive to light. Cardiovascular: Rate and Rhythm: Normal rate and regular rhythm. Pulses: Normal pulses. Pulmonary: Effort: Pulmonary effort is normal. No respiratory distress. Breath sounds: Normal breath sounds. No wheezing. Abdominal: General: Abdomen is flat. Bowel sounds are normal. There is no distension. Palpations: Abdomen is soft. Tenderness: There is no abdominal tenderness. There is no guarding or rebound. Musculoskeletal: General: Normal range of motion. Cervical back: Normal range of motion and neck supple. Comments: Left flank tenderness palpation Skin: General: Skin is warm and dry. Capillary Refill: Capillary refill takes less than 2 seconds. Neurological: General: No focal deficit present. Mental Status: She is alert and oriented to person, place, and time. Mental status is at baseline. Cranial Nerves: No cranial nerve deficit. Sensory: No sensory deficit. Motor: No weakness. Coordination: Coordination normal. Psychiatric: Mood and Affect: Mood normal. Behavior: Behavior normal. Vital Signs During ED Visit Patient Vitals for the past 24 hrs: BP Temp Temp src Pulse Resp SpO2 Height Weight 09/20/20 2345 117/67 09/20/20 2125 1.702 m (5' 7 ) 104.3 kg (230 lb) 09/20/20 2124 153/77 98.2 F (36.8 C) Oral 100 16 99 % Differential Diagnosis: Kidney stone, urinary tract infection, dehydration Orders/Results: Orders Placed This Encounter URINE CULTURE XR ABDOMEN 1 VIEW AMB REFERRAL TO UROLOGY INSULIN GLARGINE SC Insulin Degludec 200 UNIT/ML Solution Pen-injector injection insulin lispro 100 UNIT/ML vial omeprazole [address] capsule metoprolol 25 MG tab regular release ondansetron 4 MG tablet rosuvastatin 20 MG tablet Ozempic, 0.25 or 0.5 MG/DOSE, 2 MG/1.5ML Solution Pen-injector tizanidine 4 MG capsule traZODone 100 MG tablet ergocalciferol 1.25 MG (60276 UT) capsule celecoxib 100 MG capsule traMADol (ULTRAM) tablet 50 mg metoclopramide (REGLAN) injection 10 mg cephALEXin 500 MG capsule URINALYSIS, MACRO HCG QUALITATIVE, URINE URINE MICROSCOPIC Results for orders placed or performed during the hospital encounter of 09/20/20 URINALYSIS, MACRO Result Value Ref Range COLOR, URINE PINK (A) YELLOW APPEARANCE, URINE CLEAR CLEAR SPECIFIC GRAVITY, URINE 1.025 1.010 - 1.025 PH URINE 6.0 5.0 - 7.0 PROTEIN, URINE 30 (A) NEGATIVE mg/dl GLUCOSE, URINE 500 (A) NEGATIVE mg/dl KETONES, URINE NEGATIVE NEGATIVE mg/dl BILIRUBIN, URINE NEGATIVE NEGATIVE BLOOD, URINE DIPSTICK LARGE (A) NEGATIVE NITRITES, URINE NEGATIVE NEGATIVE UROBILINOGEN, URINE 0.2 0.2 - 1.0 E.U./dL LEUKOCYTE ESTERASE, URINE TRACE (A) NEGATIVE HCG QUALITATIVE, URINE Result Value Ref Range HCG, QUALITATIVE, URINE NEGATIVE NEGATIVE URINE MICROSCOPIC Result Value Ref Range WBC, URINE NEGATIVE NEGATIVE /HPF RBC, URINE 10 TO 20 NEGATIVE /HPF Epithelial Cells UA 1 TO 5 /HPF Mucus NEGATIVE NEGATIVE BACTERIA, URINE TRACE (A) NEGATIVE CRYSTALS, URINE NONE NONE CASTS, URINE NONE NONE /LPF COMMENT, URINE REFLEX CULTURE PER ESTABLISHED CRITERIA. Radiographic Imaging XR ABDOMEN 1 VIEW Final Result IMPRESSION: 1. Unremarkable bowel gas pattern without excessive air or stool throughout the colon. 2. Moderate food debris in the stomach. 3. Cholecystectomy clips in the right upper quadrant are noted. Moderate Sedation Procedure: No Procedures: Procedures ED Summary: Patient workup with significant for blood. Etiologies not completely clear. Recent decline any further workup. Patient medical chart does have a visit from February 2020 with a note patient has a history of opiate abuse I am not entirely sure if this is the case but patient will need to have further follow-up. They put a referral to follow-up with urology. Do not perform a CT scan this patient had a CT scan approximately 2 weeks ago that showed no stones. Advised patient to follow up on outpatient basis. If patient has any worsening symptoms, any other complaints return for reevaluation otherwise a follow-up on outpatient basis. Clinical Impression: 1. Urinary tract infection with hematuria, site unspecified No follow-ups on file. New Prescriptions CEPHALEXIN 500 MG CAPSULE Take 1 capsule by mouth every 12 hours for 5 days. Discontinued Medications No medications on file An After Visit Summary was printed and given to the patient with above information. . . Jose Muller MD 09/20/20 [id number] documented in this encounter ED Attestation Note - Cristi Feng MD - 07/08/2020 7:59 PM RITA Attestation Note - Dominik Lucas MD - 07/16/2020 8:31 PM EST Miscellaneous Notes (unrecog nized section and content) ED Attestation: I was personally available for consult in the ED for this patient, if the Advanced Practice Provider (LAZARO) needed any assistance. The LAZARO evaluated the patient independently for a complaint of Flank Pain and Emesis, and completed their own examination, documentation, and discharge. documented in this encounter ED Attestation I was in the emergency department available for consultation documented in this encounter <item><item><item><item><item><item> Privacy Markings (unrecogniz ed section and content) Section Author: Kell Johns PROHIBITION ON REDISCLOSURE OF CONFIDENTIAL INFORMATION This notice accompanies a disclosure of information concerning a client made to you with the consent of such client. Section Author: Kell Johns PROHIBITION ON REDISCLOSURE OF CONFIDENTIAL INFORMATION This notice accompanies a disclosure of information concerning a client made to you with the consent of such client. Section Author: Kell Johns PROHIBITION ON REDISCLOSURE OF CONFIDENTIAL INFORMATION This notice accompanies a disclosure of information concerning a client made to you with the consent of such client. Section Author: Kell Johns PROHIBITION ON REDISCLOSURE OF CONFIDENTIAL INFORMATION This notice accompanies a disclosure of information concerning a client made to you with the consent of such client. Section Author: Kell Johns PROHIBITION ON REDISCLOSURE OF CONFIDENTIAL INFORMATION This notice accompanies a disclosure of information concerning a client made to you with the consent of such client. Section Author: Kell Johns PROHIBITION ON REDISCLOSURE OF CONFIDENTIAL INFORMATION This notice accompanies a disclosure of information concerning a client made to you with the consent of such client. Source Comments (unrecognize d section and content) In the event this informatio n is protected by the Federal Confidentiality of Alcohol and Drug Abuse Patient Records regulations: The Federal rules restrict any use of the information to criminally investigate or prosecute any alcohol or drug abuse patient.[facility] Scheduled Active and Recently Administ ered Medications (unrecognized section and content) Medication Order 11/17/2020 11/18/2020 11/19/2020 dicyclomine (BENTYL) injection 20 mg (COMPLETED) 20 mg, Intramuscular, ONCE, 1 dose, On Thu11/19/20 at 2130 2116 (Given - Provid er: Juana Win RN) HYDROmorphone (DILAUDID) injection 1 mg (COMPLETED) 1 mg, Intravenous, ONCE, 1 dose, On Thu11/19/20 at 2014 2019 (Given - Provid er: Juana Win, SHALOM) ondansetron 4mg/2ml (ZOFRAN) injection 4 mg (COMPLETED) 4 mg, Intravenous, ONCE, 1 dose, On Thu11/19/20 at 2014 2019 (Given - Provid er: Juana Win, SHALOM) sodium chloride 0.9% IV solution 1,000 mL (COMPLETED) 1,000 mL, Intravenous, ONCE, 1 dose, On Thu11/19/20 at 2044 2019 ($$New Bag$$ - Provider: Juana Win, SHALOM)214 (Stopped - Provider: Saundra Mendoza, SHALOM) sodium chloride 0.9% IV solution 1,000 mL (COMPLETED) 1,000 mL, Intravenous, ONCE, 1 dose, On Thu11/19/20 at 2200 2149 ($$New Bag$$ - Provider: Saundra Mendoza, SHALOM)2238 (Stopped - Provider: Juana Win, SHALOM) Scheduled Medication Order 11/24/2020 11/25/2020 11/26/2020 0.9 % sodium chloride bolus (COMPLETED) 1,000 mL (10 mL/kg), Intravenous, at 500 mL/hr, Administer over 2 Hours, ONCE, On 11/25/20 at 2129, For 1 dose 222 (New Bag - Provider: Charu Fung RN) 0009 (Stopped - Provider: Jayleen High RN) cefTRIAXone (ROCEPHIN) 1000 mg IVPB in 50 mL D5W minibag (COMPLETED) 1,000 mg, Intravenous, ONCE, 1 dose, On Thu11/25/20 at 2250 2313 (New Bag - Provider: Charukatrina Fung RN)2354 (Stopped - Provider: Jayleen High RN) diphenhydrAMINE (BENADRYL) injection 25 mg (COMPLETED) 25 mg, Intravenous, ONCE, On 11/25/20 at 2250, For 1 dose 231 (Given - Provider: Charu Fung RN) HYDROmorphone (DILAUDID) injection 1 mg 1 mg, Intravenous, ONCE, On 11/25/20 at 2250, For 1 dose, If oral and IV narcotics ordered, use oral first and only use IV if oral is ineffective or cannot take oral. Do Not give oral and IV within 1 hour of each other unless specifically ordered. 0024 (Not Given - Provider: Charu Fung RN - Reason: Other - Comment: duplicate order.) metoclopramide (REGLAN) injection 10 mg (COMPLETED) 10 mg, Intravenous, ONCE, On 11/25/20 at 2250, For 1 dose 2311 (Given - Provider: Charu Fung RN) ondansetron (ZOFRAN) injection 4 mg (COMPLETED) 4 mg, Intravenous, ONCE, On 11/25/20 at 2129, For 1 dose 2229 (Given - Provider: Charu Fung RN) PRN Medication Order 11/24/2020 11/25/2020 11/26/2020 HYDROmorphone (DILAUDID) injection 1 mg (COMPLETED) 1 mg, Intravenous, EVERY 15 MIN PRN, Pain Severe (7-10), Starting on 11/25/20 at 2127, For 2 doses, If oral and IV narcotics ordered, use oral first and only use IV if oral is ineffective or cannot take oral. Do Not give oral and IV within 1 hour of each other unless specifically ordered. 2229 (Given - Provider: Genet Fung RN)2312 (Given - Provider: Charu Fung RN) Scheduled Medication Order 01/31/2021 02/01/2021 02/02/2021 atorvastatin (LIPITOR) tablet 40 mg 40 mg, Oral, Nightly, First dose on Thu02/01/21 at 2100 2004 (Given - Provider: Jose Sevilla RN) cefdinir (OMNICEF) capsule 300 mg 300 mg, Oral, Every 12 hours scheduled, First dose on Thu02/02/21 at 1000, Indication: Other (specify), Indication: UTI 1109 (Given - Provid er: Holly Membreno RN) cefTRIAXone (ROCEPHIN) IVPB 1 g (premix) (COMPLETED) 1,000 mg, Intravenous, at 100 mL/hr, Once, On Thu02/01/21 at 0010, For 1 dose, Indication: UTI 0020 (New Bag - Provider: Fidelia Sanchez RN)0112 (Stopped - Provider: Fidelia Sanchez RN) cefTRIAXone (ROCEPHIN) IVPB 1 g (premix) (CANCELED) 1,000 mg, Intravenous, at 100 mL/hr, Every 24 hours, First dose on Thu02/02/21 at 0000, Indication: UTI (mild to moderate) 0042 (New Bag - Provider: Jose Sevilla RN)0044 (Rate/Dose Verify - Provider: Jose Sevilla RN)0112 (Stopped - Provider: Jose Sevilla RN)0359 (Stopped - Provider: Jose Sevilla RN) diphenhydrAMINE (BENADRYL) injection 50 mg (COMPLETED) 50 mg, Intravenous, Once, On Thu02/01/21 at 0205, For 1 dose, For IV administration, give at a rate less than or equal to 25 mg/min 0228 (Given - Provider: Fidelia Sanchez RN) HYDROmorphone (DILAUDID) injection 0.5 mg (COMPLETED) 0.5 mg, Intravenous, Once, On Thu02/01/21 at 0010, For 1 dose 0020 (Given - Provider: Fidelia Sanchez RN) HYDROmorphone (DILAUDID) injection 1 mg (COMPLETED) 1 mg, Intravenous, Once, On Thu02/01/21 at 0205, For 1 dose 0222 (Given - Provider: Fidelia Sanchez RN) insulin glargine (LANTUS) injection 22 Units 22 Units, Subcutaneous, Nightly, First dose on Thu02/01/21 at 2100, Do not hold basal insulin without notifying physician. If patient NPO and BG < 100 before procedure, administer half of the glargine insulin (Lantus) dose; if BG is >100 administer full dose. Do not mix with other insulins in a syringe. Do NOT hold basal insulin without notifying physician 2235 (Given - Provider: Jose Sevilla, SHALOM) insulin lispro (HumaLOG) injection 0-15 Units 0-15 Units, Subcutaneous, At bedtime, First dose on Thu02/01/21 at 2100, For Nightly Insulin Dose Coverage, use: CORRECTIVE (Only) for BG greater than 300, Nightly CORRECTIVE Dose Method: Specific Corrective Dose, Nightly Specific CORRECTIVE dose (units of insulin): 2, For Downtime Calculator, use: Insulin SC NIGHTtime 2100 (Not Given - Provider: Jose Sevilla RN - Reason: Order parameters not met) insulin lispro (HumaLOG) injection 0-30 Units 0-30 Units, Subcutaneous, 3 times daily before meals, First dose on Thu02/01/21 at 0730, Dose should be given 10-15 minutes before a meal. If poor oral intake, nausea or blood glucose value < 80 before meal, give of the dose (rounded up to nearest unit) immediately after meal completed. If patient skipping meal, hold base prandial dose and continue to use corrective insulin as ordered. Once diet resumed, total base prandial + corrective doses may be given., Prandial Insulin Dosing Method: Specific Prandial Doses, Specific Prandial Dose (units of Insulin): 12, Corrective Insulin Regimen (select desired scale to cover BG result): Normal Sensitivity Scale, For Downtime Calculator, use: Insulin SC MEALtime PREprandial 0918 (Given - Provider: Anamaria Ayoub RN)1310 (Given - Provider: Anamaria Ayoub RN)1630 (Not Given - Provider: Heydi Montano RN - Reason: Order parameters not met) 0838 (Given - Provider: Holly Membreno, SHALOM)1228 (Given - Provider: Holly Membreno, RN)1630 (Due) metoclopramide (REGLAN) injection 10 mg (COMPLETED) 10 mg, Intravenous, Once, On Thu02/01/21 at 0205, For 1 dose 0222 (Given - Provider: Fidelia Sanchez RN) pantoprazole (PROTONIX) EC tablet 40 mg 40 mg, Oral, Daily, First dose on Thu02/01/21 at 0900, DO NOT CRUSH OR CHEW. 0918 (Given - Provider: Anamaria Ayoub RN) 0837 (Given - Provider: Holly Membreno, SHALOM) phenazopyridine (PYRIDIUM) tablet 200 mg 200 mg, Oral, 3 times daily after meals, First dose on Thu02/01/21 at 1300, For 48 hours 1310 (Given - Provider: Anaamria Ayoub RN)1735 (Given - Provider: Jenny Horvath, SHALOM) 0837 (Given - Provider: Holly Membreno, SHALOM)1234 (Given - Provider: Holly Membreno, SHALOM) senna-docusate (SENNA-S) 8.6-50 mg per tablet 1 tablet 1 tablet, Oral, 2 times daily, First dose on Thu02/01/21 at 0900, NOT for abdominal surgery patients. Hold for loose stools. Do Not Crush or Chew if administering orally due to bitter taste. May be crushed if given via tube. 917 (Given - Provider: Anamaria Ayoub RN)2004 (Given - Provider: Jose Sevilla RN) 0839 (Given - Provider: Holly Membreno RN) sodium chloride (PF) (NS) flush 5 mL(Linked Group 1) 5 mL, Intravenous, Every 8 hours scheduled, First dose on Thu02/01/21 at 0700, Saline lock 0700 (Given - Provider: Carmelita Martinez RN)0923 (Given - Provider: Anamaria Ayoub RN)1400 (Not Given - Provider: Anamaria Ayoub RN - Reason: Other - Comment: given earlier)2238 (Given - Provider: Jose Sevilla RN) 0600 (Given - Provider: Jose Sevilla RN)1400 (Due) sodium chloride 0.9% (NS) bolus 1,000 mL (COMPLETED) 1,000 mL, Intravenous, at 1,000 mL/hr, Once, On Thu02/01/21 at 0010, For 1 dose 0019 (New Bag - Provider: Fidelia Sanchez RN)0135 (Stopped - Provider: Fidelia Sanchez RN) tamsulosin (FLOMAX) 24 hr capsule 0.4 mg 0.4 mg, Oral, After evening meal, First dose on Thu02/01/21 at 0615, DO NOT CRUSH OR CHEW. Give 30 minutes after the same meal daily. Monitor for orthostasis due to potential risk of syncope. 0548 (Given - Provider: Carmelita Martinez RN)1735 (Given - Provider: Jenny Horvath, SHALOM) Continuous Medication Order 01/31/2021 02/01/2021 02/02/2021 sodium chloride 0.9% (NS) 75 mL/hr, Intravenous, Continuous, Starting on Thu02/01/21 at 0615 0547 (New Bag - Provider: Carmelita Martinez RN)0924 (Rate/Dose Verify - Provider: Anamaria Ayoub RN)1200 (Rate/Dose Verify - Provider: Anamaria Ayoub RN)1437 (Rate/Dose Verify - Provider: Anamaria Ayoub RN)1700 (Rate/Dose Verify - Provider: Jenny Horvath RN)2016 (New Bag - Provider: Jose Sevilla RN)2236 (Rate/Dose Verify - Provider: Jose Sevilla RN) 0359 (Rate/Dose Verify - Provider: Jose Sevilla RN)0608 (Rate/Dose Verify - Provider: Jose Sevilla RN)0846 (New Bag - Provider: Holly Membreno RN)1111 (Rate/Dose Change - Provider: Holly Membreno RN)1408 (Rate/Dose Change - Provider: Holly Membreno RN)1650 (Stopped - Provider: Holly Membreno RN) PRN Medication Order 01/31/2021 02/01/2021 02/02/2021 HYDROcodone-acetaminophen (NORCO) 5-325 mg per tablet 1 tablet (CANCELED) 1 tablet, Oral, Every 6 hours PRN, moderate to severe pain, Starting on Thu02/02/21 at 0836 1109 (Given - Provid er: Holly Membreno RN) HYDROmorphone (DILAUDID) injection 0.25-0.5 mg (CANCELED) 0.25-0.5 mg, Intravenous, Every 3 hours PRN (may repeat), moderate to severe pain, Starting on Thu02/01/21 at 0510, Initiate with 0.25 mg IV every 3 hours prn moderate to severe pain. For unrelieved pain, may repeat 0.25 mg within 30 minutes of initial dose. If pain is RELIEVED after repeat dose, change to 0.5 mg every 3 hours prn moderate to severe pain. If pain is UNrelieved after repeat dose, or patient requires dose reduction, call physician. May use IV for breakthrough pain or if unable to tolerate enteral routes. 0547 (Given - Provider: Carmelita Martinez RN)0921 (Given - Provider: Anamaria Ayoub, RN)1310 (Given - Provider: Anamaria Ayoub, RN)1705 (Given - Provider: Jenny Horvath RN)2004 (Given - Provider: Jose Sevilla RN) 004 (Given - Provider: Jose Sevilla, RN)0408 (Given - Provider: Jose Sevilla RN)0843 (Given - Provider: Holly Membreno RN) naloxone (NARCAN) injection 0.1 mg(Linked Group 2) 0.1 mg, Intravenous, As needed, opioid reversal, For respiratory rate less than or equal to 8 per minute., Starting on Thu02/01/21 at 0510, Mix nalOXone (NARCAN) 0.4 mg (1ml) with 9 mL of Normal Saline to total 10 mL. Administer 0.1 mg (2.5ml) IV Push every 2 minutes until respiratory rate is 10 or greater. naloxone (NARCAN) injection 0.4 mg(Linked Group 2) 0.4 mg, Intravenous, As needed, opioid reversal, patient is pulseless, breathless, and unresponsive, Starting on Thu02/01/21 at 0510, Call a code first, then administer naloxone dose undiluted IV Push over 30 seconds. oxyCODONE-acetaminophen (PERCOCET) 5-325 mg per tablet 1 tablet 1 tablet, Oral, Every 6 hours PRN, moderate to severe pain, Starting on Thu02/02/21 at 1227 1234 (Given - Provid er: Holly Membreno RN) prochlorperazine (COMPAZINE) injection 5 mg 5 mg, Intravenous, Every 6 hours PRN, nausea, vomiting, Starting on Thu02/01/21 at 1957, If IV, give slow IV push at a rate not exceeding 5 mg/minute and remain lying down for 30 minutes to reduce risk of hypotension. If IM, inject deep into outer buttocks quadrant. 2006 (Given - Provider: Jose Sevilla RN) 0843 (Given - Provider: Holly Membreno RN) sodium chloride (PF) (NS) flush 5 mL(Linked Group 3) 5 mL, Intravenous, As needed, line care, Starting on Thu02/01/21 at 0006 sodium chloride (PF) (NS) flush 5 mL(Linked Group 1) 5 mL, Intravenous, As needed, line care, Starting on Thu02/01/21 at 0608 sodium chloride 0.9% (NS)(Linked Group 3) 0-150 mL/hr, Intravenous, As needed, To flush line after IV infusions when no maintenance IV ordered or a compatibility issue. Infuse 20ml at the same rate as the secondary infusion, Starting on Thu02/01/21 at 0006, Run as Primary IV. NOT intended for KVO. sodium chloride 0.9% (NS)(Linked Group 1) 0-150 mL/hr, Intravenous, As needed, To flush line after IV infusions when no maintenance IV ordered or a compatibility issue. Infuse 20ml at the same rate as the secondary infusion, Starting on Thu02/01/21 at 0608, Run as Primary IV. NOT intended for KVO. Linked Groups Order Group 1: Saline lock IV (CANCELED) Routine, Continuous, Starting on Thu02/01/21 at 0609, Until Specified And sodium chloride (PF) (NS) flush 5 mLJump to med 5 mL, Intravenous, As needed, line care, Starting on Thu02/01/21 at 0608 And sodium chloride (PF) (NS) flush 5 mLJump to med 5 mL, Intravenous, Every 8 hours scheduled, First dose on Thu02/01/21 at 0700
Saline lock
And sodium chloride 0.9% (NS)Jump to med 0-150 mL/hr, Intravenous, As needed, To flush line after IV infusions when no maintenance IV ordered or a compatibility issue. Infuse 20ml at the same rate as the secondary infusion, Starting on Thu02/01/21 at 0608
Run as Primary IV. NOT intended for KVO.
Group 2: naloxone (NARCAN) injection 0.1 mgJump to med 0.1 mg, Intravenous, As needed, opioid reversal, For respiratory rate less than or equal to 8 per minute., Starting on Thu02/01/21 at 0510
Mix nalOXone (NARCAN) 0.4 mg (1ml) with 9 mL of Normal Saline to total 10 mL. Administer 0.1 mg (2.5ml) IV Push every 2 minutes until respiratory rate is 10 or greater.
And Notify physician (CANCELED) STAT, Until discontinued, Starting on Thu02/01/21 at 0511, Until Specified
Respiratory rate less than: 8
For respiratory rate less than or equal to 8, notify physician and/or appropriate staff for additional orders. And naloxone (NARCAN) injection 0.4 mgJump to med 0.4 mg, Intravenous, As needed, opioid reversal, patient is pulseless, breathless, and unresponsive, Starting on Thu02/01/21 at 0510
Call a code first, then administer naloxone dose undiluted IV Push over 30 seconds.
Group 3: Insert peripheral IV (COMPLETED) ENOCH, Once, On Thu02/01/21 at 0010, For 1 occurrence And Saline lock IV (CANCELED) ENOCH, Once, On Thu02/01/21 at 0010, For 1 occurrence And sodium chloride (PF) (NS) flush 5 mLJump to med 5 mL, Intravenous, As needed, line care, Starting on Thu02/01/21 at 0006 And sodium chloride 0.9% (NS)Jump to med 0-150 mL/hr, Intravenous, As needed, To flush line after IV infusions when no maintenance IV ordered or a compatibility issue. Infuse 20ml at the same rate as the secondary infusion, Starting on Thu02/01/21 at 0006
Run as Primary IV. NOT intended for KVO.
Scheduled Medication Order 04/13/2021 04/14/2021 04/15/2021 oxyCODONE-acetaminophen (PERCOCET) 5-325 MG per tablet 1 tablet (COMPLETED) 1 tablet, Oral, ONCE, On 04/15/21 at 2023, For 1 dose, Maximum dose of acetaminophen is 4000 mg from all sources in 24 hours. 2050 (Given - Provid er: Madeline Viveros RN) sulfamethoxazole-trimethoprim (BACTRIM DS;SEPTRA DS) 800-160 MG per tablet 1 tablet (COMPLETED) 1 tablet, Oral, ONCE, On Thu04/15/21 at 2023, For 1 dose 2050 (Given - Provid er: Madeline Viveros RN) Scheduled Medication Order 12/04/2021 12/05/2021 12/06/2021 ascorbic acid (vitamin C) (VITAMIN C) tablet 500 mg 500 mg, Oral, Daily, First dose on Thu12/04/21 at 0900 0949 (Given - Provider: Quincy Johnson RN) 0851 (Given - Provider: Suzette Enrique RN) 0833 (Given - Provider: Suzette Enrique RN) cefTRIAXone (ROCEPHIN) 1000 mg in sodium chloride (NS) 0.9% 50 mL MBP 1,000 mg, Intravenous, at 100 mL/hr, Every 24 hours, First dose on Thu12/04/21 at 1030, Indication: UTI (mild to moderate) 1003 (New Bag - Provider: Quincy Johnson RN)1033 (Stopped - Provider: Juliet Wang LPN) 1126 (New Bag - Provider: Suzette Enrique RN) 1030 (Not Given - Provider: Suzette Enrique RN - Reason: Patient not available) celecoxib (CELEBREX) capsule 200 mg 200 mg, Oral, Daily, First dose on Thu12/04/21 at 0900, Give with Food 0949 (Given - Provider: Quincy Johnson RN) 0851 (Given - Provider: Suzette Enrique RN) 0833 (Given - Provider: Suzette Enrique RN) docusate sodium (COLACE) capsule 100 mg 100 mg, Oral, Daily, First dose on Thu12/04/21 at 0900, [] Hold for loose stools. DO NOT CRUSH OR CHEW. 0948 (Given - Provider: Quincy Johnson RN) 0851 (Not Given - Provider: Suzette Enrique RN - Reason: Patient/family refused) 0900 (Not Given - Provider: Suzette Enrique RN - Reason: Patient/family refused) enoxaparin (LOVENOX) syringe 40 mg 40 mg, Subcutaneous, Daily, First dose on Thu12/04/21 at 0900, Administer in abdomen unless otherwise directed by prescriber. Notify physician if patient refuses., Indication: VTE Prophylaxis 0948 (Given - Provider: Quincy Johnson RN) 0851 (Given - Provider: Suzette Enrique RN) 0833 (Given - Provider: Suzette Enrique RN) gabapentin (NEURONTIN) capsule 600 mg 600 mg, Oral, Every 8 hours scheduled, First dose on Thu12/04/21 at 0600 0600 (Not Given - Provider: Quincy Johnson RN - Reason: Other - Comment: ED)1411 (Given - Provider: Quincy Johnson RN)2133 (Given - Provider: Juliet Wang LPN) 0603 (Given - Provider: Juliet Wang LPN)1304 (Given - Provider: Suzette Enrique RN)2159 (Given - Provider: Juliet Wang LPN) 0610 (Given - Provider: Juliet Wang LPN)1400 (Due) insulin glargine (LANTUS) injection 80 Units 80 Units, Subcutaneous, Nightly, First dose on Thu12/04/21 at 2100, Do not hold basal insulin without notifying physician. If patient NPO and BG < 100 before procedure, administer half of the glargine insulin (Lantus) dose; if BG is >100 administer full dose. Do not mix with other insulins in a syringe. Do NOT hold basal insulin without notifying physician 2133 (Given - Provider: Juliet Wang LPN) 2199 (Given - Provider: Juliet Wang LPN) insulin lispro (AdmeLOG,HumaLOG) injection 0-15 Units 0-15 Units, Subcutaneous, At bedtime, First dose on Thu12/04/21 at 2100, For Nightly Insulin Dose Coverage, use: CORRECTIVE (Only) for BG greater than 300, Nightly CORRECTIVE Dose Method: Follow Corrective SCALE, Corrective Scale to use for BG > 300: Normal Sensitivity Scale, For Downtime Calculator, use: Insulin SC NIGHTtime 2100 (Not Given - Provider: Juliet Wang LPN - Reason: Order parameters not met) 2100 (Not Given - Provider: Juliet Wang LPN - Reason: Order parameters not met) insulin lispro (AdmeLOG,HumaLOG) injection 0-30 Units 0-30 Units, Subcutaneous, 3 times daily before meals, First dose on Thu12/04/21 at 0730, Dose should be given 10-15 minutes before a meal. If poor oral intake, nausea or blood glucose value < 80 before meal, give of the dose (rounded up to nearest unit) immediately after meal completed. If patient skipping meal, hold base prandial dose and continue to use corrective insulin as ordered. Once diet resumed, total base prandial + corrective doses may be given., Prandial Insulin Dosing Method: Specific Prandial Doses, Specific Prandial Dose (units of Insulin): 35, Corrective Insulin Regimen (select desired scale to cover BG result): Normal Sensitivity Scale, For Downtime Calculator, use: Insulin SC MEALtime PREprandial 0949 (Given - Provider: Quincy Johnson, RN)1130 (Not Given - Provider: Quincy Johnson RN - Reason: Contraindicated - Comment: too close to previous dose)1722 (Given - Provider: Quincy Johnson RN) 0851 (Given - Provider: Suzette Enrique, SHALOM - Comment: [address] Cadena)1130 (Given - Provider: Suzette Enrique RN)1814 (Given - Provider: Suzette Enrique RN) 0834 (Given - Provider: Suzette Enrique RN)1130 (Not Given - Provider: Suzette Enrique RN - Reason: Patient/family refused) lactated ringers bolus 1,000 mL (COMPLETED) 1,000 mL, Intravenous, at 983.6 mL/hr, Once, On Thu12/04/21 at 0520, For 1 dose 0544 (New Bag - Provider: Monica Arora RN)0645 (Stopped - Provider: Monica Arora, SHALOM) magnesium sulfate 2 g in sterile water (SW) 50 mL IVPB (COMPLETED) 2 g, Intravenous, at 50 mL/hr, Once, On Thu12/04/21 at 0600, For 1 dose 0652 (New Bag - Provider: Monica Arora, SHALOM) pantoprazole (PROTONIX) EC tablet 40 mg 40 mg, Oral, Daily, First dose on Thu12/04/21 at 0900, DO NOT CRUSH OR CHEW. 0949 (Given - Provider: Quincy Johnson RN) 0851 (Given - Provider: Suzette Enrique RN) 0833 (Given - Provider: Suzette Enrique RN) sodium chloride (PF) (NS) flush 5 mL(Linked Group 1) 5 mL, Intravenous, Every 8 hours scheduled, First dose on Thu12/04/21 at 0600, Saline lock 0600 (Not Given - Provider: Quincy Johnson RN - Reason: Other - Comment: ED)1400 (Given - Provider: Quincy Johnson RN)2200 (Not Given - Provider: Juliet Wang LPN - Reason: Other - Comment: infusing) 0600 (Not Given - Provider: Juliet Wang LPN - Reason: Other - Comment: infusing)1400 (Not Given - Provider: Suzette Enrique RN - Reason: Other)2200 (Not Given - Provider: Juliet Wang LPN - Reason: Other - Comment: infusing) 0600 (Not Given - Provider: Juliet Wang LPN - Reason: Other - Comment: infusing)1400 (Due) sodium chloride 0.9% (NS) bolus 1,000 mL (COMPLETED) 1,000 mL, Intravenous, at 983.6 mL/hr, Once, On Thu12/04/21 at 0055, For 1 dose 0054 (New Bag - Provider: Monica Arora, SHALOM)0155 (Stopped - Provider: Monica Arora RN) Continuous Medication Order 12/04/2021 12/05/2021 12/06/2021 lactated Ringers infusion 50 mL/hr, Intravenous, Continuous, Starting on Thu12/04/21 at 0520 0545 (New Bag - Provider: Monica Arora RN)1415 (New Bag - Provider: Quincy Johnson RN)1416 (Paused - Provider: Juliet Ditmars, WORKFLOW DEVELOPER)1416 (Restarted - Provider: Juliet Ditmars, WORKFLOW DEVELOPER)1416 (Paused - Provider: Juliet Ditmars, WORKFLOW DEVELOPER)1418 (Restarted - Provider: Juliet Ditmars, WORKFLOW DEVELOPER)1703 (Paused - Provider: Juliet Ditmars, WORKFLOW DEVELOPER)1703 (Restarted - Provider: Juliet Ditmars, WORKFLOW DEVELOPER)1923 (Paused - Provider: Juliet Ditmars, WORKFLOW DEVELOPER)1923 (Restarted - Provider: Juliet Ditmars, WORKFLOW DEVELOPER)1928 (Paused - Provider: Juliet Ditmars, WORKFLOW DEVELOPER)1927 (Restarted - Provider: Juliet Ditmars, WORKFLOW DEVELOPER)1941 (Paused - Provider: Juliet Ditmars, WORKFLOW DEVELOPER)1941 (Restarted - Provider: Juliet Ditmars, WORKFLOW DEVELOPER)2018 (Paused - Provider: Juliet Ditmars, WORKFLOW DEVELOPER)2018 (Restarted - Provider: Juliet Ditmars, WORKFLOW DEVELOPER)2026 (Rate/Dose Verify - Provider: Juliet Ditmars, WORKFLOW DEVELOPER)2027 (Paused - Provider: Juliet Ditmars, WORKFLOW DEVELOPER)2027 (Restarted - Provider: Juliet Ditmars, WORKFLOW DEVELOPER)2103 (Rate/Dose Change - Provider: Juliet Ditmars, WORKFLOW DEVELOPER)2122 (Rate/Dose Change - Provider: Juliet Ditmars, WORKFLOW DEVELOPER)2221 (Paused - Provider: Juliet Ditmars, WORKFLOW DEVELOPER)2221 (Restarted - Provider: Juliet Ditmars, WORKFLOW DEVELOPER)222 (Paused - Provider: Juliet Ditmars, WORKFLOW DEVELOPER)222 (Restarted - Provider: Juliet Ditmars, WORKFLOW DEVELOPER)2339 (Paused - Provider: Juliet Ditmars, WORKFLOW DEVELOPER)2339 (Restarted - Provider: Juliet Ditmars, WORKFLOW DEVELOPER) 0002 (Paused - Provider: Juliet Ditmars, WORKFLOW DEVELOPER)0003 (Restarted - Provider: Juliet Ditmars, WORKFLOW DEVELOPER)0107 (Paused - Provider: Juliet Ditmars, WORKFLOW DEVELOPER)0107 (Restarted - Provider: Juliet Ditmars, WORKFLOW DEVELOPER)0115 (Rate/Dose Verify - Provider: Juliet Ditmars, WORKFLOW DEVELOPER)0330 (Rate/Dose Verify - Provider: Juliet Ditmars, WORKFLOW DEVELOPER)0346 (Rate/Dose Change - Provider: Juliet Ditmars, WORKFLOW DEVELOPER)0354 (Rate/Dose Change - Provider: Juliet Ditmars, WORKFLOW DEVELOPER)0550 (Rate/Dose Verify - Provider: Juliet Ditmars, WORKFLOW DEVELOPER)0555 (Paused - Provider: Suzette Enrique RN)0555 (Restarted - Provider: Suzette Enrique RN)0557 (Paused - Provider: Suzette Enrique RN)0557 (Restarted - Provider: Suzette Enrique RN)0606 (Paused - Provider: Suzette Enrique RN)0606 (Restarted - Provider: Suzette Enrique RN)0646 (Paused - Provider: Suzette Enrique RN)0646 (Restarted - Provider: Suzette Enrique RN)0701 (Paused - Provider: Suzette Enrique RN)0702 (Restarted - Provider: Suzette Enrique RN)0800 (Paused - Provider: Suzette Enrique RN)0800 (Restarted - Provider: Suzette Enrique RN)0830 (Paused - Provider: Suzette Enrique RN)0830 (Restarted - Provider: Suzette Enrique RN)0850 (Rate/Dose Verify - Provider: Suzette Enrique RN)1121 (New Bag - Provider: Suzette Enrique RN) PRN Medication Order 12/04/2021 12/05/2021 12/06/2021 acetaminophen (TYLENOL) tablet 650 mg 650 mg, Oral, Every 6 hours PRN, mild pain, fever 100.4 F or greater, headaches, infusion related reactions, Starting on Thu12/04/21 at 0515 0042 (Given - Provider: Juliet Wang LPN) 0416 (Given - Provider: Jacinta Long RN) aluminum-magnesium hydroxide-simethicone (MAALOX PLUS) 200-200-20 mg/5 mL suspension 30 mL 30 mL, Oral, Every 4 hours PRN, indigestion, Starting on Thu12/04/21 at 0515 bisacodyL (DULCOLAX) suppository 10 mg 10 mg, Rectal, Daily PRN, constipation, Starting on Thu12/04/21 at 0515, Try oral medications first for constipation. Try rectal medication if oral meds are ineffective, not tolerated, or not ordered. HYDROmorphone (DILAUDID) injection 0.5 mg (CANCELED) 0.5 mg, Intravenous, Every 4 hours PRN, moderate to severe pain, Starting on Thu12/04/21 at 0855 0942 (Given - Provider: Quincy Johnson RN)1405 (Given - Provider: Quincy Johnson SHALOM)182 (Given - Provider: Quincy Johnson, RN)222 (Given - Provider: Alina Yun, RN) 0239 (Given - Provider: Margaret Mcginnis, RN)0701 (Given - Provider: Abhay Begum, RN)1123 (Given - Provider: Suzette Enrique, RN)1550 (Given - Provider: Suzette Enrique, RN)2024 (Given - Provider: Jacinta Long, SHALOM) 005 (Given - Provider: Jacinta Long, SHALOM)0455 (Given - Provider: Jacinta Long RN) iopamidoL (ISOVUE-370) 76 % injection 75 mL (COMPLETED) 75 mL, Intravenous, Once in imaging, contrast, Starting on Thu12/04/21 at 0121, For 1 dose 0134 (Contrast Administered - Provider: Heydi Escalante, TECHNOLOGIST) magnesium hydroxide (MOM) 400 mg/5 mL suspension 2,400 mg 2,400 mg (30 mL), Oral, Daily PRN, constipation, Starting on Thu12/04/21 at 0515, If no bowel movement in 24 hours after Sennosides (SENNA) administration. melatonin Tab 5 mg 5 mg, Oral, Nightly PRN, Sleep, Starting on Thu12/04/21 at 0515 naloxone (NARCAN) injection 0.1 mg(Linked Group 2) 0.1 mg, Intravenous, As needed, opioid reversal, For respiratory rate less than or equal to 8 per minute., Starting on Thu12/04/21 at 0855, Mix nalOXone (NARCAN) 0.4 mg (1mL) with 9 mL of Normal Saline to total 10 mL. Administer 0.1 mg (2.5mL) IV Push every 2 minutes until respiratory rate is 10 or greater. naloxone (NARCAN) injection 0.4 mg(Linked Group 2) 0.4 mg, Intravenous, As needed, opioid reversal, patient is pulseless, breathless, and unresponsive, Starting on Thu12/04/21 at 0855, Call a code first, then administer naloxone dose undiluted IV Push over 30 seconds. promethazine (PHENERGAN) tablet 12.5 mg 12.5 mg, Oral, Every 6 hours PRN, nausea, vomiting, Starting on Thu12/04/21 at 1159 1405 (Given - Provider: Quincy Johnson RN)2133 (Given - Provider: Juliet Wang LPN) 112 (Given - Provider: Suzette Enrique, SHALOM)2024 (Given - Provider: Jacinta Long RN) 023 (Given - Provider: Juliet Wang LPN)0837 (Given - Provider: Suzette Enrique RN) senna (SENOKOT) tablet 8.6 mg 8.6 mg (1 tablet), Oral, 2 times daily PRN, constipation, Starting on Thu12/04/21 at 0515 sodium chloride (PF) (NS) 0.9 % contrast line flush 10 mL (COMPLETED) 10 mL, Intravenous, Once in imaging, contrast, Per raspberry checker (Radiology) for line patency check prior to contrast administration, Starting on Thu12/04/21 at 0120, For 1 dose 013 (Given - Provider: Heydi Escalante TECHNOLOGIST) sodium chloride (PF) (NS) 0.9 % contrast line flush 80 mL (COMPLETED) 80 mL, Intravenous, Once in imaging, contrast, Per raspberry checker (Radiology), Starting on Thu12/04/21 at 0120, For 1 dose, 30 mL BEFORE contrast administration 50 mL AFTER contrast administration 134 (Given - Provider: Heydi Escalante, TECHNOLOGIST) sodium chloride (PF) (NS) flush 5 mL(Linked Group 1) 5 mL, Intravenous, As needed, line care, Starting on Thu12/04/21 at 0515 sodium chloride 0.9% (NS)(Linked Group 1) 0-150 mL/hr, Intravenous, As needed, To flush line after IV infusions when no maintenance IV ordered or a compatibility issue. Infuse 20ml at the same rate as the secondary infusion, Starting on Thu12/04/21 at 0515, Run as Primary IV. NOT intended for KVO. traMADoL (ULTRAM) tablet 50 mg 50 mg, Oral, Every 8 hours PRN, moderate to severe pain, Starting on Thu12/06/21 at 0741 0837 (Given - Provider: Suzette Enrique RN) Linked Groups Order Group 1: Saline lock IV (CANCELED) Routine, Continuous, Starting on Thu12/04/21 at 0516, Until Specified And sodium chloride (PF) (NS) flush 5 mLJump to med 5 mL, Intravenous, As needed, line care, Starting on Thu12/04/21 at 0515 And sodium chloride (PF) (NS) flush 5 mLJump to med 5 mL, Intravenous, Every 8 hours scheduled, First dose on Thu12/04/21 at 0600
Saline lock
And sodium chloride 0.9% (NS)Jump to med 0-150 mL/hr, Intravenous, As needed, To flush line after IV infusions when no maintenance IV ordered or a compatibility issue. Infuse 20ml at the same rate as the secondary infusion, Starting on Thu12/04/21 at 0515
Run as Primary IV. NOT intended for KVO.
Group 2: naloxone (NARCAN) injection 0.1 mgJump to med 0.1 mg, Intravenous, As needed, opioid reversal, For respiratory rate less than or equal to 8 per minute., Starting on Thu12/04/21 at 0855
Mix nalOXone (NARCAN) 0.4 mg (1mL) with 9 mL of Normal Saline to total 10 mL. Administer 0.1 mg (2.5mL) IV Push every 2 minutes until respiratory rate is 10 or greater.
And Notify physician (CANCELED) STAT, Until discontinued, Starting on Thu12/04/21 at 0856, Until Specified
Respiratory rate less than: 8
For respiratory rate less than or equal to 8, notify physician and/or appropriate staff for additional orders. And naloxone (NARCAN) injection 0.4 mgJump to med 0.4 mg, Intravenous, As needed, opioid reversal, patient is pulseless, breathless, and unresponsive, Starting on Thu12/04/21 at 0855
Call a code first, then administer naloxone dose undiluted IV Push over 30 seconds.
Scheduled Medication Order 07/09/2022 07/10/2022 07/11/2022 0.9 % sodium chloride bolus (COMPLETED) 1,000 mL (8.82 mL/kg), IntraVENous, at 495.9 mL/hr, Administer over 121 Minutes, ONCE, On Rohini 07/10/22 at 2035, For 1 dose 2152 (New Bag - Provider: Debora Beckford RN)2300 (Stopped - Provider: Scarlet Samayoa RN) HYDROmorphone (DILAUDID) injection 1 mg (COMPLETED) HYDROmorphone (DILAUDID) 1.5mg IV is equivalent to morphine 10mg IV, 1 mg, IntraVENous, ONCE, 1 dose, On Rohini 07/10/22 at 2035, If oral and IV narcotics ordered, use oral first and only use IV if oral is ineffective or cannot take oral. Do Not give oral and IV within 1 hour of each other unless specifically ordered. 2152 (Given - Provider: Rin Beckford RN) HYDROmorphone (DILAUDID) injection 1 mg (COMPLETED) HYDROmorphone (DILAUDID) 1.5mg IV is equivalent to morphine 10mg IV, 1 mg, IntraMUSCular, ONCE, 1 dose, On Rohini 07/10/22 at 2304, If oral and IV narcotics ordered, use oral first and only use IV if oral is ineffective or cannot take oral. Do Not give oral and IV within 1 hour of each other unless specifically ordered. 230 (Given - Provider: Fady Samayoa RN) ondansetron (ZOFRAN) injection 4 mg (COMPLETED) 4 mg, IntraVENous, ONCE, 1 dose, On Rohini 07/10/22 at 2035 215 (Given - Provider: Rin Beckford RN) trimethobenzamide (TIGAN) injection 200 mg (COMPLETED) 200 mg, IntraMUSCular, ONCE, 1 dose, On Rohini 07/10/22 at 2311 2331 (Given - Provider: Fady Samayoa RN) Scheduled Medication Order 08/11/2022 08/12/2022 08/13/2022 0.9 % sodium chloride bolus (COMPLETED) 1,000 mL (8.82 mL/kg), IntraVENous, at 495.9 mL/hr, Administer over 121 Minutes, ONCE, On Thu08/13/22 at 2116, For 1 dose 2200 (New Bag - Prov ider: Tristan Beth RN)2352 (Stopped - Provider: Valerio Maxwell RN) HYDROmorphone (DILAUDID) injection 1 mg (COMPLETED) 1 mg, IntraVENous, ONCE, 1 dose, On Thu08/13/22 at 2116 220 (Given - Provid er: Tristan Beth RN) HYDROmorphone (DILAUDID) injection 1 mg (COMPLETED) 1 mg, IntraVENous, ONCE, 1 dose, On Thu08/13/22 at 2314 2319 (Given - Provid er: Valerio Maxwell RN) ondansetron (ZOFRAN) injection 4 mg (COMPLETED) 4 mg, IntraVENous, ONCE, 1 dose, On Thu08/13/22 at 2116 2203 (Given - Provid er: Tristan Beth RN) Scheduled Medication Order 08/23/2022 08/24/2022 08/25/2022 0.9 % sodium chloride bolus (COMPLETED) 1,000 mL (8.48 mL/kg), IntraVENous, at 495.9 mL/hr, Administer over 121 Minutes, ONCE, On 08/24/22 at 2204, For 1 dose 2329 (New Bag - Provider: Shannon Stevenson RN) 0012 (Stopped - Provider: Shannon Stevenson RN) famotidine (PEPCID) 20 mg in sodium chloride (PF) 0.9 % 10 mL injection (COMPLETED) 20 mg, IntraVENous, ONCE, 1 dose, On Thu08/24/22 at 2204, IV Push over minimum of 2 minutes - Dilute with 10 mL NS 2308 (Given - Provider: Madeline Viveros, SHALOM) HYDROmorphone (DILAUDID) injection 1 mg (COMPLETED) 1 mg, IntraVENous, ONCE, 1 dose, On Thu08/24/22 at 2317, If oral and IV narcotics ordered, use oral first and only use IV if oral is ineffective or cannot take oral. Do Not give oral and IV within 1 hour of each other unless specifically ordered. 2331 (Given - Provider: Shannon Stevenson RN) ondansetron (ZOFRAN) injection 4 mg (COMPLETED) 4 mg, IntraVENous, ONCE, 1 dose, On 08/24/22 at 2204 2308 (Given - Provider: Madeline Viveros, SHALOM) oxyCODONE-acetaminophen (PERCOCET) 5-325 MG per tablet 1 tablet (COMPLETED) 1 tablet, Oral, ONCE, 1 dose, On Thu08/25/22 at 0002, Maximum dose of acetaminophen is 4000 mg from all sources in 24 hours. 0011 (Given - Provid er: Shannon Stevenson RN) Scheduled Medication Order 09/15/2022 09/16/2022 09/17/2022 0.9 % sodium chloride bolus (COMPLETED) 1,000 mL (8.48 mL/kg), IntraVENous, at 1,935.5 mL/hr, Administer over 31 Minutes, ONCE, On Thu09/17/22 at 0149, For 1 dose 0202 (New Bag - Prov ider: Freedom Mabry)0233 (Stopped - Provider: Freedom Mabry) 0.9 % sodium chloride bolus (COMPLETED) 500 mL (4.24 mL/kg), IntraVENous, at 967.7 mL/hr, Administer over 31 Minutes, ONCE, On Thu09/17/22 at 0149, For 1 dose 0203 (New Bag - Prov ider: Freedom Mabry)0234 (Stopped - Provider: Freedom Mabry) diphenhydrAMINE (BENADRYL) injection 25 mg 25 mg, IntraVENous, ONCE, 1 dose, On Thu09/17/22 at 0208, IV Push at rate not to exceed 25 mg/min. 0258 (Not Given - Pr ovider: Freedom Mabry - Reason: Patient/family refused) ketorolac (TORADOL) injection 15 mg 15 mg, IntraVENous, ONCE, 1 dose, On Thu09/17/22 at 0208, Do not administer for more than 5 days. 0258 (Not Given - Pr ovider: Freedom Mabry - Reason: Patient/family refused) ondansetron (ZOFRAN) injection 4 mg (COMPLETED) 4 mg, IntraVENous, ONCE, 1 dose, On Thu09/17/22 at 0147 0206 (Given - Provid er: Freedom Mabry) Scheduled Medication Order 06/29/2023 06/30/2023 07/01/2023 acetaminophen (TYLENOL) tablet 650 mg 650 mg, Oral, EVERY 6 HOURS, First dose on Thu06/30/23 at 2030, Until Discontinued, Maximum dose of acetaminophen is 4000 mg from all sources in 24 hours., Post-op 2211 (Given - Provider: Loraine Lord RN) 0319 (Given - Provider: Loraine Lord RN)0837 (Given - Provider: Carmella Bailey RN)1408 (Given - Provider: Carmella Bailey RN)2030 (Due) ARIPiprazole (ABILIFY) tablet 15 mg 15 mg, Oral, DAILY, First dose on Thu06/30/23 at 2030, Until Discontinued 2150 (Not Given - Provider: Loraine Lord RN - Reason: Other - Comment: ordered for am) 0839 (Given - Provider: Carmella Bailey RN) ascorbic acid (VITAMIN C) tablet 500 mg 500 mg, Oral, DAILY, First dose on Thu07/01/23 at 0900, Until Discontinued 0838 (Given - Provid er: Carmella Bailey RN) bisacodyl (DULCOLAX) EC tablet 5 mg 5 mg, Oral, DAILY, First dose on Thu06/30/23 at 2030, Until Discontinued, Do not crush or break., Post-op 2148 (Not Given - Provider: Loraine Lord RN - Reason: Other) 0839 (Given - Provider: Carmella Bailey RN) busPIRone (BUSPAR) tablet 15 mg 15 mg, Oral, 3 TIMES DAILY, First dose on Thu06/30/23 at 2100, Until Discontinued, This 15 mg tablet can be split into thirds (5 mg) or halves (7.5 mg) based on the ordered dose. 2210 (Given - Provider: Loraine Lord RN) 0837 (Given - Provider: Carmella Bailey RN)140 (Given - Provider: Carmella Bailey RN)2099 (Due) cetirizine (ZYRTEC) tablet 5 mg 5 mg, Oral, DAILY, First dose on Thu06/30/23 at 2030, Until Discontinued, Substituted for Loratadine (CLARITIN). 2149 (Not Given - Provider: Loraine Lord RN - Reason: Other - Comment: ordered for am) 0838 (Given - Provider: Carmella Bailey RN) DULoxetine (CYMBALTA) extended release capsule 30 mg 30 mg, Oral, EVERY BEDTIME, First dose on Thu06/30/23 at 2130, Until Discontinued, Do not crush or break. May add contents of capsule to apple juice or apple sauce, but not chocolate. 2209 (Given - Provider: Loraine Lord RN) 2100 (Due) DULoxetine (CYMBALTA) extended release capsule 60 mg 60 mg, Oral, DAILY, First dose on Thu07/01/23 at 0900, Until Discontinued, Do not crush or break. May add contents of capsule to apple juice or apple sauce, but not chocolate. 0838 (Given - Provid er: Carmella Bailey RN) insulin lispro (HUMALOG) injection vial 0-4 Units 0-4 Units, SubCUTAneous, NIGHTLY, First dose on Thu06/30/23 at 2200, Until Discontinued, If continuous tube feedings/TPN/NPO, give correction dose based on result, no reduction in dose. If eating or bolus tube feeding: Corrective Bedtime Algorithm Glucose: Dose: 70-299 No Insulin 300-349 4 Units Over 349 4 Units and notify physician 2150 (Not Given - Provider: Loraine Lord RN - Reason: Order parameters not met) 2100 (Due) insulin lispro (HUMALOG) injection vial 0-8 Units 0-8 Units, SubCUTAneous, 3 TIMES DAILY WITH MEALS, First dose on Thu07/01/23 at 0800, Until Discontinued, Medium Dose Corrective Algorithm Glucose: Dose: 70-199 No Insulin 200-249 2 Units 250-299 4 Units 300-349 6 Units Over 349 8 Units and notify physician 0844 (Given - Provid er: Carmella Bailey RN)1123 (Given - Provider: Carmella Bailey RN)1700 (Due) levothyroxine (SYNTHROID) tablet 50 mcg 50 mcg, Oral, DAILY, First dose on Thu07/01/23 at 0700, Until Discontinued, Tube feeding (TF) interaction, obtain physician order to manage, recommend holding TF for 30 minutes before and after dose. 0614 (Given - Provid er: Loraine Lord RN) lidocaine 4 % external patch 1 patch 1 patch, Topical, Administer over 12 Hours, DAILY, First dose on Thu06/30/23 at 2030, Substituted for Lidocaine 5% Patch. 2144 (Not Given - Provider: Loraine Lord RN - Reason: Other - Comment: ordered for am) 0843 (Patch Applied - Provider: Carmella Bailey RN)2042 (Due: Patch Removed - Provider: Carmella Bailey RN) metoprolol tartrate (LOPRESSOR) tablet 50 mg 50 mg, Oral, 2 TIMES DAILY, First dose on Thu06/30/23 at 2100, Until Discontinued, Hold for SBP less than 90. Hold for HR less than 65 221 (Given - Provider: Loraine Lord RN) 0839 (Given - Provider: Carmella Bailey RN)2099 (Due) mupirocin (BACTROBAN) 2 % ointment Each Nostril, 3 TIMES DAILY, First dose on Thu06/30/23 at 2100 2100 (Due) 1119 (Not Given - Provider: Carmella Bailey RN - Reason: Patient/family refused)1359 (Not Given - Provider: Carmella Bailey RN - Reason: Medication not available)2099 (Due) oxyCODONE (ROXICODONE) immediate release tablet 5 mg (COMPLETED) 5 mg, Oral, ONCE, 1 dose, On Thu07/01/23 at 1200 1138 (Given - Provid er: Carmella Bailey RN) rosuvastatin (CRESTOR) tablet 20 mg 20 mg, Oral, NIGHTLY, First dose on Thu06/30/23 at 2100, Until Discontinued 2210 (Given - Provider: Loraine Lord RN) 2099 (Due) sodium chloride flush 0.9 % injection 5-40 mL 5-40 mL, IntraVENous, EVERY 12 HOURS SCHEDULED (2 times per day), First dose on Thu06/30/23 at 2100, Until Discontinued, For Line Patency: Peripheral IV = 5 mL; Midline or Central Line = 10 mL/lumen. If following IV push medication, administer flush at same rate as the IV push. Flush volume is determined by type of infusion therapy being given. For non-viscous solutions use: Peripheral IV = 5 mL Midline or Central Line = 10 mL/lumen For viscous solutions (i.e. blood components, parenteral nutrition, contrast media, or after obtaining blood sample) use: Peripheral IV = 10 mL Midline or Central Line = 20 mL/lumen, Post-op 2150 (Not Given - Provider: Loraine Lord RN - Reason: IV Fluid Infusing) 0847 (Given - Provider: Carmella Bailey RN)2099 (Due) vancomycin (VANCOCIN) 2,000 mg in sodium chloride 0.9 % 500 mL IVPB (COMPLETED) 2,000 mg, IntraVENous, BENEFITS SPECIALIST TO O.R., 1 dose, On Thu06/30/23 at 1130, Antimicrobial Indications: Surgical Prophylaxis, Pre-op (day of surgery) 1210 (New Bag - Provider: DAVID Mcguire) Continuous Medication Order 06/29/2023 06/30/2023 07/01/2023 0.9 % sodium chloride infusion IntraVENous, at 100 mL/hr, CONTINUOUS, Starting on Thu06/30/23 at 2030, D/C IV and all IV medications when eating well postoperative., Post-op 2209 (New Bag - Provider: Loraine Lord, RN) 0700 (Stopped - Provider: Carmella Bailey, RN) lactated ringers IV soln infusion (CANCELED) IntraVENous, at 125 mL/hr, CONTINUOUS, Starting on Thu06/30/23 at 1515, PACU only 1706 (New Bag - Provider: Vicenta Rodriguez, SHALOM) 0700 (Stopped - Provider: Carmella Bailey, RN) PRN Medication Order 06/29/2023 06/30/2023 07/01/2023 0.9 % sodium chloride infusion IntraVENous, at 5-250 mL/hr, PRN, if patient receiving piggyback infusions and maintenance fluids are not ordered OR KVO fluids to protect IV site / prevent frequent line interruptions/ long duration, Starting on Thu06/30/23 at 2002, For piggyback infusion, administer at same rate as piggyback for a total of 25 mL. Enter 25 mL into dose field and piggyback rate into rate field of order. If piggyback is infusing at a rate less than 100 mL/hr, enter 25 mL into dose field and 100 mL/hr into rate field of order. For KVO fluids, enter rate of 20 mL/hr or less into rate field of order., Post-op dextrose 10 % infusion IntraVENous, at 100 mL/hr, CONTINUOUS PRN, if blood glucose remains LESS THAN 70 mg/dL after 2 dextrose 10% intravenous boluses or administration of glucagon, Starting on Thu06/30/23 at 2144, If blood glucose fails to stabilize after 2 dextrose 10% intravenous boluses or glucagon administration, start dextrose 10% infusion at 100 mL/hour and repeat blood glucose at 30 and 60 minutes. If blood glucose is GREATER THAN 70 mg/dL after 60 minutes, discontinue dextrose 10% infusion. dextrose bolus 10% 125 mL(Linked Group 1) 125 mL, IntraVENous, at 937.5 mL/hr, Administer over 8 Minutes, PRN, Other, Blood glucose 40 - 69 mg/dL and patient NOT ALERT or NPO, Starting on Thu06/30/23 at 2144, Repeat blood glucose in 15 minutes. If blood glucose remains LESS THAN 70 mg/dL, repeat treatment and recheck blood glucose in 15 minutes x 2. If using glycemic management system, dose as instructed per system. If blood glucose remains LESS THAN 70 mg/dL after 2 intravenous boluses start dextrose 10% at 100 mL/hour and notify provider. dextrose bolus 10% 250 mL(Linked Group 1) 250 mL, IntraVENous, at 937.5 mL/hr, Administer over 16 Minutes, PRN, Other, Blood glucose LESS THAN 40 mg/dL and patient NOT ALERT or NPO, Starting on Thu06/30/23 at 2144, Repeat blood glucose in 15 minutes. If blood glucose remains LESS THAN 70 mg/dL, repeat treatment and recheck blood glucose in 15 minutes x 2. If using glycemic management system, dose as instructed per system. If blood glucose remains LESS THAN 70 mg/dL after 2 intravenous boluses start dextrose 10% at 100 mL/hour and notify provider. glucagon injection 1 mg 1 mg, SubCUTAneous, PRN, Starting on Thu06/30/23 at 2001, Until Discontinued, Low blood sugar, Blood glucose LESS THAN 70 mg/dL and patient NOT ALERT or NPO and does not have IV access., After administration, attempt intravenous access and start dextrose 10% at 100 mL/hr. Repeat blood glucose in 15 minutes x 2 and notify provider. glucose chewable tablet 16 g 16 g (4 tablet), Oral, PRN, Starting on Thu06/30/23 at 2144, Until Discontinued, Low blood sugar, If blood glucose is LESS THAN 70 mg/dL and patient is alert and tolerating oral. Give 4 tablets (16g) Repeat blood glucose in 15 minutes. If blood glucose is LESS THAN 70 mg/dL, repeat treatment and recheck blood glucose in 15 minutes x 2. If blood glucose remains LESS THAN 70 mg/dL, notify provider. HYDROmorphone (DILAUDID) injection 0.25 mg(Linked Group 2) 0.25 mg, IntraVENous, EVERY 3 HOURS PRN, Starting on Thu06/30/23 at 2001, Until Discontinued, Pain Moderate (4-6), If oral and IV narcotics ordered, use oral first and only use IV if oral is ineffective or cannot take oral. Do Not give oral and IV within 1 hour of each other unless specifically ordered., Post-op 2047 (See Alternative - Provider: Loraine Lord RN) 317 (See Alternative - Provider: Loraine Lord RN) HYDROmorphone (DILAUDID) injection 0.5 mg (CANCELED) 0.5 mg, IntraVENous, EVERY 5 MIN PRN, 6 doses, Starting on Thu06/30/23 at 1450, Until Thu06/30/23 at 1946, Pain Severe (7-10), For Phase I. If Phase II oral narcotics have been administered in the last 60 minutes, do not administer IV narcotics unless specifically approved by provider., PACU only 1700 (Given - Provider: Vicenta Rodriguez, SHALOM)1815 (Given - Provider: Vicenta Rodriguez, SHALOM) HYDROmorphone (DILAUDID) injection 0.5 mg(Linked Group 2) 0.5 mg, IntraVENous, EVERY 3 HOURS PRN, Starting on Thu06/30/23 at 2001, Until Discontinued, Pain Severe (7-10), If oral and IV narcotics ordered, use oral first and only use IV if oral is ineffective or cannot take oral. Do Not give oral and IV within 1 hour of each other unless specifically ordered., Post-op 2047 (Given - Provider: Loraine Lord RN) 317 (Given - Provider: Loraine Lord RN) hydrOXYzine pamoate (VISTARIL) capsule 50 mg 50 mg, Oral, EVERY 6 HOURS PRN, Starting on Thu06/30/23 at 2001, Until Discontinued, Anxiety magnesium hydroxide (MILK OF MAGNESIA) 400 MG/5ML suspension 30 mL 30 mL, Oral, DAILY PRN, Starting on Thu06/30/23 at 2001, Until Discontinued, Constipation, First line therapy for constipation., Post-op meclizine (ANTIVERT) tablet 25 mg 25 mg, Oral, EVERY 8 HOURS PRN, Starting on Thu06/30/23 at 2001, Until Discontinued, Dizziness 2233 (Given - Provider: Loraine Lord, SHALOM) ondansetron (ZOFRAN) injection 4 mg 4 mg, IntraVENous, EVERY 6 HOURS PRN, Starting on Thu06/30/23 at 2001, Until Discontinued, Nausea, Vomiting, Post-op ondansetron (ZOFRAN-ODT) disintegrating tablet 4 mg 4 mg, Oral, 3 TIMES DAILY PRN, Starting on Thu06/30/23 at 2001, Until Discontinued, Nausea, Vomiting oxyCODONE (ROXICODONE) immediate release tablet 5 mg(Linked Group 3) 5 mg, Oral, EVERY 6 HOURS PRN, Starting on Thu06/30/23 at 2001, Until Discontinued, Pain Moderate (4-6), Post-op 0614 (See Alternativ e - Provider: Loraine Lord RN)1010 (See Alternative - Provider: Carmella Bailey RN)1537 (See Alternative - Provider: Carmella Bailey RN) oxyCODONE (ROXICODONE) immediate release tablet 5 mg(Linked Group 3) 5 mg, Oral, EVERY 4 HOURS PRN, Starting on Thu06/30/23 at 2001, Until Discontinued, Pain Severe (7-10), Post-op 0614 (Given - Provid er: Loraine Lord RN)1010 (Given - Provider: Carmella Bailey RN)1537 (Given - Provider: Carmella Bailey RN) polyethylene glycol (GLYCOLAX) packet 17 g 17 g, Oral, DAILY PRN, Starting on Thu06/30/23 at 2001, Until Discontinued, Constipation, Second line therapy for constipation, After 24 hours, if no result from first line PRN therapy, give second line therapy in combination with first line therapy., Post-op promethazine (PHENERGAN) tablet 25 mg 25 mg, Oral, EVERY 6 HOURS PRN, Starting on Thu06/30/23 at 2202, Until Discontinued, Nausea 2210 (Given - Provider: Loraine Lord RN) sod chloride IRR soln 0.9 % irrigation (COMPLETED) CONTINUOUS PRN, Starting on Thu06/30/23 at 1228, Intra-op 1228 (New Bag - Provider: Ruben Abdi MD - Comment: *ON STERILE FIELD PRN) sodium chloride flush 0.9 % injection 5-40 mL 5-40 mL, IntraVENous, PRN, Starting on Thu06/30/23 at 2001, Until Discontinued, Line Care, After every IV line use, For Line Patency: Peripheral IV = 5 mL; Midline or Central Line = 10 mL/lumen. If following IV push medication, administer flush at same rate as the IV push. Flush volume is determined by type of infusion therapy being given. For non-viscous solutions use: Peripheral IV = 5 mL Midline or Central Line = 10 mL/lumen For viscous solutions (i.e. blood components, parenteral nutrition, contrast media, or after obtaining blood sample) use: Peripheral IV = 10 mL Midline or Central Line = 20 mL/lumen, Post-op tiZANidine (ZANAFLEX) tablet 4 mg 4 mg, Oral, EVERY 8 HOURS PRN, Starting on Thu06/30/23 at 2002, Until Discontinued, Muscle spasms 2210 (Given - Provider: Loraine Lord, SHALOM) 0848 (Given - Provider: Carmella Bailey RN) traZODone (DESYREL) tablet 100 mg 100 mg, Oral, NIGHTLY PRN, Starting on Thu06/30/23 at 2209, Until Discontinued, Sleep 2211 (Given - Provider: Loraine Lord RN) Linked Groups Order Group 1: dextrose bolus 10% 125 mLJump to med 125 mL, IntraVENous, at 937.5 mL/hr, Administer over 8 Minutes, PRN, Other, Blood glucose 40 - 69 mg/dL and patient NOT ALERT or NPO, Starting on Thu06/30/23 at 2144
Repeat blood glucose in 15 minutes. If blood glucose remains LESS THAN 70 mg/dL, repeat treatment and recheck blood glucose in 15 minutes x 2. If using glycemic management system, dose as instructed per system. If blood glucose remains LESS THAN 70 mg/dL after 2 intravenous boluses start dextrose 10% at 100 mL/hour and notify provider.
Or dextrose bolus 10% 250 mLJump to med 250 mL, IntraVENous, at 937.5 mL/hr, Administer over 16 Minutes, PRN, Other, Blood glucose LESS THAN 40 mg/dL and patient NOT ALERT or NPO, Starting on Thu06/30/23 at 2144
Repeat blood glucose in 15 minutes. If blood glucose remains LESS THAN 70 mg/dL, repeat treatment and recheck blood glucose in 15 minutes x 2. If using glycemic management system, dose as instructed per system. If blood glucose remains LESS THAN 70 mg/dL after 2 intravenous boluses start dextrose 10% at 100 mL/hour and notify provider.
Group 2: HYDROmorphone (DILAUDID) injection 0.25 mgJump to med 0.25 mg, IntraVENous, EVERY 3 HOURS PRN, Starting on Thu06/30/23 at 2001, Until Discontinued, Pain Moderate (4-6)
If oral and IV narcotics ordered, use oral first and only use IV if oral is ineffective or cannot take oral. Do Not give oral and IV within 1 hour of each other unless specifically ordered.
Post-op Or HYDROmorphone (DILAUDID) injection 0.5 mgJump to med 0.5 mg, IntraVENous, EVERY 3 HOURS PRN, Starting on Thu06/30/23 at 2001, Until Discontinued, Pain Severe (7-10)
If oral and IV narcotics ordered, use oral first and only use IV if oral is ineffective or cannot take oral. Do Not give oral and IV within 1 hour of each other unless specifically ordered.
Post-op Group 3: oxyCODONE (ROXICODONE) immediate release tablet 5 mgJump to med 5 mg, Oral, EVERY 6 HOURS PRN, Starting on Thu06/30/23 at 2001, Until Discontinued, Pain Moderate (4-6), Post-op Or oxyCODONE (ROXICODONE) immediate release tablet 5 mgJump to med 5 mg, Oral, EVERY 4 HOURS PRN, Starting on Thu06/30/23 at 2001, Until Discontinued, Pain Severe (7-10), Post-op Scheduled Medication Order 07/07/2023 07/08/2023 07/09/2023 ARIPiprazole (ABILIFY) tablet 15 mg 15 mg, Oral, NIGHTLY, First dose on Thu07/08/23 at 2100, Until Discontinued 2126 (Given - Provider: Suhail Peterson RN) 2100 (Due) BUPivacaine (MARCAINE) 0.5 % injection 150 mg (COMPLETED) 150 mg (30 mL), IntraDERmal, ONCE, 1 dose, On Thu07/08/23 at 1500 1512 (Given - Provider: Vivek Guerin RN) busPIRone (BUSPAR) tablet 15 mg 15 mg, Oral, 3 TIMES DAILY, First dose on Thu07/08/23 at 1400, Until Discontinued, This 15 mg tablet can be split into thirds (5 mg) or halves (7.5 mg) based on the ordered dose. 1356 (Given - Provider: Vivek Guerin RN)212 (Given - Provider: Suhail Peterson, RN) 09 (Given - Provider: Adelita Pak, RN)1400 (Due)2100 (Due) DULoxetine (CYMBALTA) extended release capsule 60 mg 60 mg, Oral, DAILY, First dose on Thu07/08/23 at 1300, Until Discontinued, Do not crush or break. May add contents of capsule to apple juice or apple sauce, but not chocolate. 135 (Given - Provider: Vivek Guerin RN) 09 (Given - Provider: Adelita Pak, RN) insulin lispro (HUMALOG) injection vial 0-4 Units 0-4 Units, SubCUTAneous, NIGHTLY, First dose on Thu07/08/23 at 2100, Until Discontinued, If continuous tube feedings/TPN/NPO, give correction dose based on result, no reduction in dose. If eating or bolus tube feeding: Corrective Bedtime Algorithm Glucose: Dose: 70-299 No Insulin 300-349 4 Units Over 349 4 Units and notify physician 2132 (Not Given - Provider: Suhail Peterson, SHALOM - Reason: Order parameters not met) 2099 (Due) insulin lispro (HUMALOG) injection vial 0-8 Units 0-8 Units, SubCUTAneous, 3 TIMES DAILY WITH MEALS, First dose on Thu07/08/23 at 1315, Until Discontinued, Medium Dose Corrective Algorithm Glucose: Dose: 70-199 No Insulin 200-249 2 Units 250-299 4 Units 300-349 6 Units Over 349 8 Units and notify physician 1356 (Given - Provider: Vivek Guerin RN)1703 (Given - Provider: Vivek Guerin RN) 0904 (Given - Provider: Adelita Pak, RN - Comment: blood sugar 325)1105 (Given - Provider: Adelita Pak, SHALOM - Comment: notified dr. [place]. agustina to give)1700 (Due) insulin lispro (HUMALOG) injection vial 12 Units (CANCELED) 12 Units, SubCUTAneous, 3 TIMES DAILY WITH MEALS, First dose on Thu07/08/23 at 1315, Until Discontinued 1355 (Given - Provider: Vivek Guerin RN)1702 (Given - Provider: Vivek Guerin RN) insulin lispro (HUMALOG) injection vial 17 Units 17 Units, SubCUTAneous, 3 TIMES DAILY WITH MEALS, First dose (after last modification) on Thu07/09/23 at 0800, Until Discontinued 0902 (Given - Provid er: Adelita Pak RN)1104 (Given - Provider: Adelita Pak RN)1700 (Due) metoprolol tartrate (LOPRESSOR) tablet 50 mg 50 mg, Oral, 2 TIMES DAILY, First dose on Thu07/08/23 at 1300, Until Discontinued 1356 (Given - Provider: Vivek Guerin RN)212 (Given - Provider: Suhail Peterson RN) 09 (Given - Provider: Adelita Pak RN)2100 (Due) pantoprazole (PROTONIX) tablet 40 mg 40 mg, Oral, DAILY, First dose on Thu07/08/23 at 1300, Until Discontinued, Do not crush or break. 1356 (Given - Provider: Vivek Guerin RN) 09 (Given - Provider: Adelita Pak RN) rosuvastatin (CRESTOR) tablet 20 mg 20 mg, Oral, NIGHTLY, First dose on Thu07/08/23 at 2100, Until Discontinued 2126 (Given - Provider: Suhail Peterson RN) 2099 (Due) traZODone (DESYREL) tablet 200 mg 200 mg, Oral, NIGHTLY, First dose on Thu07/08/23 at 2200, Until Discontinued 2220 (Given - Provider: Suhail Peterson RN) 2100 (Due) triamcinolone acetonide (KENALOG-40) injection 40 mg (COMPLETED) 40 mg, IntraMUSCular, ONCE, 1 dose, On Thu07/08/23 at 1500 1512 (Given - Provider: Vivek Guerin RN) PRN Medication Order 07/07/2023 07/08/2023 07/09/2023 dextrose 10 % infusion IntraVENous, at 100 mL/hr, CONTINUOUS PRN, if blood glucose remains LESS THAN 70 mg/dL after 2 dextrose 10% intravenous boluses or administration of glucagon, Starting on Thu07/08/23 at 1244, If blood glucose fails to stabilize after 2 dextrose 10% intravenous boluses or glucagon administration, start dextrose 10% infusion at 100 mL/hour and repeat blood glucose at 30 and 60 minutes. If blood glucose is GREATER THAN 70 mg/dL after 60 minutes, discontinue dextrose 10% infusion. dextrose bolus 10% 125 mL(Linked Group 1) 125 mL, IntraVENous, at 937.5 mL/hr, Administer over 8 Minutes, PRN, Other, Blood glucose 40 - 69 mg/dL and patient NOT ALERT or NPO, Starting on Thu07/08/23 at 1244, Repeat blood glucose in 15 minutes. If blood glucose remains LESS THAN 70 mg/dL, repeat treatment and recheck blood glucose in 15 minutes x 2. If using glycemic management system, dose as instructed per system. If blood glucose remains LESS THAN 70 mg/dL after 2 intravenous boluses start dextrose 10% at 100 mL/hour and notify provider. dextrose bolus 10% 250 mL(Linked Group 1) 250 mL, IntraVENous, at 937.5 mL/hr, Administer over 16 Minutes, PRN, Other, Blood glucose LESS THAN 40 mg/dL and patient NOT ALERT or NPO, Starting on Thu07/08/23 at 1244, Repeat blood glucose in 15 minutes. If blood glucose remains LESS THAN 70 mg/dL, repeat treatment and recheck blood glucose in 15 minutes x 2. If using glycemic management system, dose as instructed per system. If blood glucose remains LESS THAN 70 mg/dL after 2 intravenous boluses start dextrose 10% at 100 mL/hour and notify provider. glucagon injection 1 mg 1 mg, SubCUTAneous, PRN, Starting on Thu07/08/23 at 1244, Until Discontinued, Low blood sugar, Blood glucose LESS THAN 70 mg/dL and patient NOT ALERT or NPO and does not have IV access., After administration, attempt intravenous access and start dextrose 10% at 100 mL/hr. Repeat blood glucose in 15 minutes x 2 and notify provider. glucose chewable tablet 16 g 16 g (4 tablet), Oral, PRN, Starting on Thu07/08/23 at 1244, Until Discontinued, Low blood sugar, If blood glucose is LESS THAN 70 mg/dL and patient is alert and tolerating oral. Give 4 tablets (16g) Repeat blood glucose in 15 minutes. If blood glucose is LESS THAN 70 mg/dL, repeat treatment and recheck blood glucose in 15 minutes x 2. If blood glucose remains LESS THAN 70 mg/dL, notify provider. hydrOXYzine pamoate (VISTARIL) capsule 25 mg 25 mg, Oral, 3 TIMES DAILY PRN, Starting on Thu07/08/23 at 1242, Until Discontinued, Anxiety 0200 (Given - Provid er: Suhail Peterson RN) ondansetron (ZOFRAN-ODT) disintegrating tablet 4 mg 4 mg, Oral, 2 TIMES DAILY PRN, Starting on Thu07/08/23 at 1128, Until Discontinued, Nausea, Vomiting 1200 (Given - Provider: Vivek Guerin RN) oxyCODONE-acetaminophen (PERCOCET) 5-325 MG per tablet 1 tablet (CANCELED) 1 tablet, Oral, EVERY 4 HOURS PRN, Starting on Thu07/08/23 at 1127, Until Thu07/08/23 at 1810, Pain Severe (7-10), Maximum dose of acetaminophen is 4000 mg from all sources in 24 hours. 1200 (Given - Provider: Vivek Guerin RN) oxyCODONE-acetaminophen (PERCOCET) 5-325 MG per tablet 2 tablet 2 tablet, Oral, EVERY 8 HOURS PRN, Starting on Thu07/08/23 at 1815, Until Discontinued, Pain Severe (7-10), Maximum dose of acetaminophen is 4000 mg from all sources in 24 hours. 1815 (Given - Provider: Vivek Guerin RN) 0157 (Given - Provider: Suhail Peterson RN)1105 (Given - Provider: Adelita Pak RN) Linked Groups Order Group 1: dextrose bolus 10% 125 mLJump to med 125 mL, IntraVENous, at 937.5 mL/hr, Administer over 8 Minutes, PRN, Other, Blood glucose 40 - 69 mg/dL and patient NOT ALERT or NPO, Starting on Thu07/08/23 at 1244
Repeat blood glucose in 15 minutes. If blood glucose remains LESS THAN 70 mg/dL, repeat treatment and recheck blood glucose in 15 minutes x 2. If using glycemic management system, dose as instructed per system. If blood glucose remains LESS THAN 70 mg/dL after 2 intravenous boluses start dextrose 10% at 100 mL/hour and notify provider.
Or dextrose bolus 10% 250 mLJump to med 250 mL, IntraVENous, at 937.5 mL/hr, Administer over 16 Minutes, PRN, Other, Blood glucose LESS THAN 40 mg/dL and patient NOT ALERT or NPO, Starting on Thu07/08/23 at 1244
Repeat blood glucose in 15 minutes. If blood glucose remains LESS THAN 70 mg/dL, repeat treatment and recheck blood glucose in 15 minutes x 2. If using glycemic management system, dose as instructed per system. If blood glucose remains LESS THAN 70 mg/dL after 2 intravenous boluses start dextrose 10% at 100 mL/hour and notify provider.
Care Teams (unrecognized sec tion and content) Personnel Name: SKYE JONES CNP Address: Address: [address] [place] [address] [address] [place], [place] [address] Name: Grace Alfonso Team Status: Active Member Role Status Dates Skye Jones APRN FACTORY EXPERT-C Primary Care Provider Activ e Team Status: Inactive Member Role Status Dates Skye Jones APRN FACTORY EXPERT-C Primary Care Provider Activ levi Watkins , DO Attending Provider Active Team Status: Inactive Member Role Status Dates Skye Jones APRN FACTORY EXPERT-C Primary Care Provider Activ e Vivek Ceballos Jr, MD Emergency Provider Active Team Status: Inactive Member Role Status Dates Skye Jones APRN FACTORY EXPERT-C Primary Care Provider Activ levi Philippe , Emergency Provider Active Team Status: Inactive Member Role Status Dates Skye Jones APRN FACTORY EXPERT-C Primary Care Provider Activ e Giacomo West PA-C Emergency Provider Active Team Status: Inactive Member Role Status Dates Skye Jones APRN FACTORY EXPERT-C Primary Care Provider Activ e Gely Sprague MD Emergency Provider Active Team Status: Inactive Member Role Status Dates Skye Jones APRN FACTORY EXPERT-C Primary Care Provider Activ e Tristan Pyle , DO Emergency Provider Active Team Status: Active Member Role Status Dates Skye Jones APRN FACTORY EXPERT-C Primary Care Provider Activ levi Watkins , Attending Provider Active Team Status: Inactive Member Role Status Dates Skye Jones APRN FACTORY EXPERT-C Primary Care Provider Activ levi Feng DO Emergency Provider Active Team Status: Inactive Member Role Status Dates Skye Jones APRN FACTORY EXPERT-C Primary Care Provider Activ e Yehuda Louis DO Emergency Provider Active Bell Maker Relationship Specialty Start Date End Date No, Physician [place] PCP - General 01/26/21 Bell Maker Relationship Specialty Start Date End Date Skye Jones APRN - [place] [address] [facility] [address] [place] [address] PCP - General Family Nurse Practitioner 08/12/21 Bell Maker Relationship Specialty Start Date End Date Skye Jones, DIRECTOR OF PHOTOGRAPHY [address] [place] [address] PCP - General Nurse Practitioner 12/03/21 Team Status: Inactive Member Role Status Dates Skye Joens , PEE FACTORY EXPERT-C Primary Care Provider Activ levi Lantigua , DO RES Active Valerie Pyle PA-C Emergency Provider Active Team Status: Inactive Member Role Status Dates Skye Jones , CERTIFIED PROSTHETIST VICE PRESIDENT FACTORY EXPERT-C Primary Care Provider Activ levi Felipe , DO RES Active Vivek Ceballos Jr, MD Emergency Provider Active Team Status: Inactive Member Role Status Dates Skye Jones , CERTIFIED PROSTHETIST VICE PRESIDENT FACTORY EXPERT-C Primary Care Provider Activ e Joseluis Vega , DO Emergency Provider Active Bell Maker Relationship Specialty Start Date End Date Skye Jones APRN - DIRECTOR OF PHOTOGRAPHY [address] [facility] [address] [place] [address] PCP - General Family Nurse Practitioner 08/12/21 Bell Maker Relationship Specialty Start Date End Date Skye Jones APRN - DIRECTOR OF PHOTOGRAPHY [address] [facility] [address] [place] [address] PCP - General Family Nurse Practitioner 08/12/21 Bell Maker Relationship Specialty Start Date End Date Skye Jones APRN - DIRECTOR OF PHOTOGRAPHY [address] [facility] [address] [place] [address] PCP - General Family Nurse Practitioner 08/12/21 Bell Maker Relationship Specialty Start Date End Date Skye Jones APRN - DIRECTOR OF PHOTOGRAPHY [address] [facility] [address] [place] [address] PCP - General Family Nurse Practitioner 08/12/21 Bell Maker Relationship Specialty Start Date End Date Jones, Skye E, CERTIFIED PROSTHETIST VICE PRESIDENT - DIRECTOR OF PHOTOGRAPHY [address] [place] [address] PCP - General Family Nurse Practitioner 08/12/21 Bell Maker Relationship Specialty Start Date End Date Skye Jones, CERTIFIED PROSTHETIST VICE PRESIDENT - DIRECTOR OF PHOTOGRAPHY [address] [place] [address] PCP - General Family Nurse Practitioner 08/12/21 Team Status: Inactive Member Role Status Dates Skye Jones , CERTIFIED PROSTHETIST VICE PRESIDENT FACTORY EXPERT-C Primary Care Provider Activ e Tari Medina , FLOOR COVERER- Emergency Provider Active Team Status: Inactive Member Role Status Dates Skye Jones , CERTIFIED PROSTHETIST VICE PRESIDENT FACTORY EXPERT-C Primary Care Provider Activ e Eileen Lowry , CERTIFIED PROSTHETIST VICE PRESIDENT Emergency Provider Active Team Status: Inactive Member Role Status Dates Skye Jones , CERTIFIED PROSTHETIST VICE PRESIDENT FACTORY EXPERT-C Primary Care Provider Activ e Damian Carpenter MD Emergency Provider Active Yves Dukes MD Admit Provider, Attending Pr ovider Active Marylou Arnold , RN Other Provider Active Chuyita Zaman , RN Other Provider Active Genna Del Cid , RN Other Provider Active Deneen Sparrow , RN Other Provider Active Keren Flores , RN Other Provider Active Yulissa Cuenca , RN Other Provider Active Augusto Batista MD Other Provider Active Schuyler Fernandez MD Other Provider Active Anamaria Camara , CERTIFIED PROSTHETIST VICE PRESIDENT Other Provider Active Beto Zuniga , DO Other Provider Active Felipe Mayes MD Other Provider Active Rocky Uribe , DO Other Provider Active Joe Burr MD Other Provider Active Ivonne Acosta MD Other Provider Active Bertha Taylor , ANP-BC Other Provider Active Nora Ocampo MD Other Provider Active Tariq Locke MD Other Provider Active Silva Villafana MD Other Provider Active Rehan Maxwell MD Other Provider Active Gely Chapman DO Other Provider Active Jessica Saavedra MD Other Provider Active Sandor Ramos MD Other Provider Active Juana Wells , FACTORY EXPERT-C Other Provider Active Miko العلي MD Other Provider Active Law Melendez MD Other Provider Active Salvatore Peñaloza MD Other Provider Active Kristi Craig , DO Other Provider Active Vikash R Radha , DO Other Provider Active Moises Mendoza , DO Other Provider Active Lindsey Petty CERTIFIED PROSTHETIST VICE PRESIDENT Other Provider Active Julio C Rajput , DO Other Provider Active Hilaria Escobar MD Other Provider Active Carie Carpenter CERTIFIED PROSTHETIST VICE PRESIDENT Other Provider Active Gisel Guerrero , CERTIFIED PROSTHETIST VICE PRESIDENT Other Provider Active Evy Brady MD Other Provider Active Krystyna Cazares , SHALOM Other Provider Active Team Status: Inactive Member Role Status Dates Skye Jones , CERTIFIED PROSTHETIST VICE PRESIDENT FACTORY EXPERT-C Primary Care Provider Activ e Damian Carpenter MD Emergency Provider Active Marylou Arnold , SHALOM Other Provider Active Chuyita Zaman , SHALOM Other Provider Active Genna Del Cid , SHALOM Other Provider Active Deneen Sparrow , SHALOM Other Provider Active Keren Flores , SHALOM Other Provider Active Yulissa Cuenca , SHALOM Other Provider Active Augusto Batista MD Other Provider Active Schuyler Fernandez MD Other Provider Active Anamaria Camara , CERTIFIED PROSTHETIST VICE PRESIDENT Other Provider Active Beto Zuniga , DO Other Provider Active Felipe Mayes MD Other Provider Active Rocky Uribe , DO Other Provider Active Joe Burr MD Other Provider Active Ivonne Acosta MD Other Provider Active Bertha Taylor , ANP-BC Other Provider Active Nora Ocampo MD Other Provider Active Tariq Locke MD Other Provider Active Silva Villafana MD Other Provider Active Rehan Maxwell MD Other Provider Active Gely Chapman , DO Other Provider Active Jessica Saavedra MD Other Provider Active Sandor Ramos MD Other Provider Active Juana Wells , FACTORY EXPERT-C Other Provider Active Miko العلي MD Other Provider Active Law Melendez MD Other Provider Active Salvatore Peñaloza MD Other Provider Active Kristi Craig , DO Other Provider Active Vikash R Radha , DO Other Provider Active Moises Mendoza , DO Other Provider Active Lindsey Petty CERTIFIED PROSTHETIST VICE PRESIDENT Other Provider Active Julio C Rajput , DO Other Provider Active Hilaria Escobar MD Other Provider Active Carie Carpenter CERTIFIED PROSTHETIST VICE PRESIDENT Other Provider Active Gisel Guerrero , CERTIFIED PROSTHETIST VICE PRESIDENT Other Provider Active Evy Brady MD Other Provider Active Krystyna Cazares , RN Other Provider Active Maxim Pinto MD Attending Provider Active Yves Dukes MD Admit Provider Active Team Status: Active Member Role Status Dates Skye Jonse , CERTIFIED PROSTHETIST VICE PRESIDENT FACTORY EXPERT-C Primary Care Provider Activ e Omi Watkins MD Attending Provider Active Team Status: Active Member Role Status Dates Skye Jones , CERTIFIED PROSTHETIST VICE PRESIDENT FACTORY EXPERT-C Primary Care Provider Activ levi Dukes MD Attending Provider Active Team Status: Inactive Member Role Status Dates Skye Jones , CERTIFIED PROSTHETIST VICE PRESIDENT FACTORY EXPERT-C Primary Care Provider Basim Dukes MD Admit Provider, Attending Pr ovider Active Marylou Arnold , SHALOM Other Provider Active Chuyita Zaman , SHALOM Other Provider Active Genna Del Cid , SHALOM Other Provider Active Deneen Sparrow , SHALOM Other Provider Active Keren Flores , SHALOM Other Provider Active Yulissa Cuenca , SHALOM Other Provider Active Augusto Batista MD Other Provider Active Anamaria Camara , CERTIFIED PROSTHETIST VICE PRESIDENT Other Provider Active Beto Zuniga , DO Other Provider Active Felipe Mayes MD Other Provider Active Rocky Uribe , DO Other Provider Active Joe Burr MD Other Provider Active Ivonne Acosta MD Other Provider Active Bertha Taylor , ANP-BC Other Provider Active Nora Ocampo MD Other Provider Active Tariq Locke MD Other Provider Active Silva Villafana MD Other Provider Active Rehan Maxwell MD Other Provider Active Gely Chapman , DO Other Provider Active Jessica Saavedra MD Other Provider Active Sandor Ramos MD Other Provider Active Juana Wells , FACTORY EXPERT-C Other Provider Active Miko العلي MD Other Provider Active Law Melendez MD Other Provider Active Deacon Corrales MD Other Provider Active Salvatore Peñaloza MD Other Provider Active Kristi Craig , DO Other Provider Active Vikash Garcia , DO Other Provider Active Moises Mendoza , DO Other Provider Active Lindsey Petty , CERTIFIED PROSTHETIST VICE PRESIDENT Other Provider Active Julio C Rajput , DO Other Provider Active Hilaria Escobar MD Other Provider Active Carie Carpenter , CERTIFIED PROSTHETIST VICE PRESIDENT Other Provider Active Gisel Guerrero , CERTIFIED PROSTHETIST VICE PRESIDENT Other Provider Active Evy Brady MD Other Provider Active Fei [place] MD Other Provider Active Krystyna Cazares , SHALOM Other Provider Active Team Status: Inactive Member Role Status Dates Skye Jones , CERTIFIED PROSTHETIST VICE PRESIDENT FACTORY EXPERT-C Primary Care Provider Activ levi Pinto MD Admit Provider, Attending Provider Active Team Status: Inactive Member Role Status Dates Skye Jones , PEE FACTORY EXPERT-C Primary Care Provider Activ levi Dukes MD Admit Provider, Attending Pr ovider Active Team Status: Active Member Role Status Dates Skye Jones APRN FACTORY EXPERT-C Primary Care Provider Activ levi Ceballos Jr, MD Emergency Provider Active Yves Dukes MD Admit Provider, Attending Pr ovider Active Team Status: Inactive Member Role Status Dates Skye Jones APRN FACTORY EXPERT-C Primary Care Provider Activ levi Ceballos Jr, MD Emergency Provider Active Yves Dukes MD Admit Provider, Attending Pr ovider Active Team Status: Inactive Member Role Status Dates Skye Jones APRN FACTORY EXPERT-C Primary Care Provider Activ levi Watkins MD Attending Provider Active Team Status: Inactive Member Role Status Dates Skye Jones APRN FACTORY EXPERT-C Primary Care Provider Tamie Dukes MD Admit Provider Active Maxim Pinto MD Attending Provider Active Bell Maker Relationship Specialty Start Date End Date Skye Jones CERTIFIED PROSTHETIST VICE PRESIDENT - DIRECTOR OF PHOTOGRAPHY [address] [place] [address] PCP - General Family Nurse Practitioner 08/12/21 Team Status: Inactive Member Role Status Dates Skye Jones APRN FACTORY EXPERT-C Primary Care Provider Activ levi Gudino MD Emergency Provider Active Bell Maker Relationship Specialty Start Date End Date Skye Jones CERTIFIED PROSTHETIST VICE PRESIDENT - DIRECTOR OF PHOTOGRAPHY [address] [place] [address] PCP - General Family Nurse Practitioner 08/12/21 Goals (unrecognized section and content) Goals may be documented in a n alternate sectionGoals may be documented in an alternate section No data available for this sectionNo InformationGoals may be documented in an alternate sectionNo InformationGoals may be documented in an alternate sectionGoals may be documented in an alternate section No data available for this section No data available for this section No data available for this sectionGoals may be documented in an alternate section No data available for this sectionGoals may be documented in an alternate sectionGoals may be documented in an alternate section No data available for this sectionGoals may be documented in an alternate section No data available for this sectionGoals may be documented in an alternate section No data available for this sectionGoals may be documented in an alternate section No data available for this sectionGoals may be documented in an alternate sectionGoals may be documented in an alternate sectionGoals may be documented in an alternate section No data available for this section No data available for this sectionGoals may be documented in an alternate section No data available for this section No data available for this section No data available for this sectionGoals may be documented in an alternate section No data available for this sectionGoals may be documented in an alternate sectionGoals may be documented in an alternate section No data available for this sectionNo Information No data available for this sectionGoals may be documented in an alternate section No data available for this section FOR RECORDS PERTAINING TO PATIENTS WHO ARE OR HAVE BEEN ENROLLED IN A CHEMICAL DEPENDENCY/SUBSTANCEABUSE PROGRAM, SOME INFORMATION MAY BE OMITTED. This clinical summary was aggregated from multiple sources. Caution should be exercised in using it in the provision of clinical care. This summary normalizes information from multiple sources, and as a consequence, information in this document may materially change the coding, format and clinical context of patient data. In addition, data may be omitted in some cases. CLINICAL DECISIONS SHOULD BE BASED ON THE PRIMARY CLINICAL RECORDS. [email or web address] [facility]. provides no warranty or guarantee of the accuracy or completeness of information in this document.
--- NOTE | 2023-07-19 15:40 | XR_ITS ---
The [address] [address] Patient Name: GISEL PAT MRN: [id number] date: 1975 Sex: F Assigned Patient Location: ER Current Patient Location: ER Accession/Order Number: [id number] Exam Date: 07/19/2023 16:00 Report Date: 07/19/2023 16:33 At the request of: ABE GASTON Procedure: XR abdomen 1V EXAM: XR abdomen 1V HISTORY: KUB- left flank pain. COMPARISON: 05/20/2023 TECHNIQUE: Abdominal X-ray, 2 views FINDINGS: Support devices: None. Bowel: Large volume stool burden. No bowel dilatation. No radiographic evidence of nephrolithiasis or ureterolithiasis. Cholecystectomy. Additional findings: None. XR/XR abdomen 1V IMPRESSION: No acute abnormality on radiographic exam. Constipation. Electronically authenticated by: BIRDIE LAUREN Date: 07/19/2023 16:33
--- NOTE | 2023-07-19 15:45 | ED.GENADUL1 ---
HPI - General Adult General Chief complaint: Urogenital-Female Stated complaint: back pain Time Seen by Provider: 07/19/23 15:28 Source: patient Mode of arrival: walk-in Limitations: no limitations History of Present Illness HPI narrative: patient is a 48-year-old female presents to the Emergency Room with concerns of nausea and urinary tract infection. Patient states she developed pain moderate to severe in the left flank, noting urgency and frequency with urination, history of recurrent kidney stones. Patient denies any vomiting or diarrhea. Patient states she has Percocet as she's been taking one tablet every six hours as prescribed from a recent neck surgery without relief of her flank pain. She reports regular bowel movements, she has a history of diabetes and sees a urology specialist out of [place]. Patient states today is the 1st day she felt really nauseous, symptoms started yesterday. Patient appears in no distress butt has multiple ALLERGIES, urine sample at the bedside noted to be cloudy.prior hysterectomy denies chance of MD complaint: [address] abdomen pelvis since 2022: Onset (ago): day(s) (2) Location: Reports back (left flank) Quality: Reports aching Relieving factors: Reports none Exacerbating factors: Reports none Related Data Home Medications Medication Instructions Recorded Confirmed celecoxib 200 mg capsule 200 mg PO Q24H 12/30/22 07/19/23 gabapentin 600 mg tablet 600 mg PO Q8H 12/30/22 07/19/23 hydroxyzine pamoate 50 mg capsule 50 mg PO Q6H PRN anxiety 12/30/22 07/19/23 insulin aspart U-100 100 unit/mL 20 unit subcut TID 12/30/22 07/19/23 (3 mL) subcutaneous pen (Novolog FlexPen U-100 Insulin aspart) insulin degludec 100 unit/mL (3 32 unit subcut Q24H 12/30/22 07/19/23 mL) subcutaneous pen (Tresiba FlexTouch U-100 insulin) loratadine 10 mg tablet 10 mg PO Q24H 12/30/22 07/19/23 metoprolol tartrate 25 mg tablet 50 mg PO Q12H 12/30/22 07/19/23 omeprazole 20 mg capsule,delayed 20 mg PO DAILY 12/30/22 07/19/23 release rosuvastatin 20 mg tablet 20 mg PO BEDTIME 12/30/22 07/19/23 tizanidine 4 mg tablet 4 mg PO Q8H PRN spasms 12/30/22 07/19/23 trazodone 100 mg tablet 200 mg PO BEDTIME 12/30/22 07/19/23 olanzapine 5 mg tablet 5 mg PO DAILY 01/17/23 03/28/23 aripiprazole 10 mg tablet 10 mg PO QDAY 03/28/23 07/19/23 buspirone 15 mg tablet 15 mg PO TID 07/19/23 07/19/23 duloxetine 60 mg capsule,delayed 60 mg PO DAILY 07/19/23 07/19/23 release (Cymbalta) Previous Rx's Medication Instructions Recorded meclizine 50 mg tablet (Antivert) 50 mg PO BID PRN dizziness #20 tabs 03/01/23 ondansetron 4 mg disintegrating 4 mg PO Q4H PRN nausea and 04/27/23 tablet vomiting 3 days #6 tabs nitrofurantoin 100 mg PO BID 7 days #14 caps 07/19/23 monohydrate/macrocrystals 100 mg capsule (Macrobid) ondansetron HCl 4 mg tablet 4 mg PO Q6H PRN nausea and 07/19/23 vomiting #12 tabs polyethylene glycol 3350 17 gram 17 g PO DAILY 14 days #14 ea 07/19/23 oral powder packet (Miralax) Allergies Allergy/AdvReac Type Severity Reaction Status Date / Time melon Allergy Severe Anaphylaxis Verified 07/19/23 14:43 aspirin Allergy Unknown Verified 07/19/23 14:43 fentanyl Allergy Unknown Verified 07/19/23 14:43 ketorolac [From Toradol] Allergy Unknown Verified 03/28/23 19:28 meperidine [From Demerol] Allergy Unknown Verified 07/19/23 14:43 morphine Allergy Unknown Verified 07/19/23 14:43 nalbuphine [From Nubain] Allergy Unknown Verified 07/19/23 14:43 NSAIDS (Non-Steroidal Allergy Unknown Verified 07/19/23 14:43 Anti-Inflamma Penicillins Allergy Unknown Verified 07/19/23 14:43 Review of Systems ROS Constitutional Denies: fever or chills Eyes Denies: change in vision Ears, nose, mouth, and throat Denies: throat pain or neck pain Cardiovascular Denies: chest pain or palpitations Respiratory Denies: shortness of breath or cough Gastrointestinal Reports: abdominal pain, nausea and vomiting Genitourinary Denies: painful urination Musculoskeletal Denies: back pain PFSH PFSH Social History Smoking status: Never smoker Exam Narrative Exam Narrative: Nurses notes and vital signs reviewed and patient is not hypoxic. General: The patient appears well and in no apparent distress. complaining of nausea, Patient is resting comfortably on cart. Skin: Warm, dry, no pallor noted.no evidence of rash Head: Normocephalic, atraumatic Neck: Supple, trachea mid-line, no tenderness, no lymphadenopathy, well-healing incision anterior neck from recent surgery Eye: Pupils are equal, round and reactive to light, EOMI Ears, Nose, Mouth, and Throat: TM are clear, normal light reflex, oral mucosa is moist, no posterior oropharynx erythema or hypertrophy, uvula is mid-line Cardiovascular: Regular Rate and Rhythm Respiratory: Patient is in no distress, no accessory muscle use, lungs are clear to auscultation, no wheezing, rales or rhonchi. Chest Wall: no tenderness Back: non-tender, minimal tenderness left lower back Musculoskeletal: normal ROM, no tenderness, no swelling GI: Normal bowel sounds, no tenderness to palpation, no masses appreciated. No rebound, guarding, or rigidity noted. Neurological: A&O x4 Psychiatric: Cooperative Constitutional Vital Signs, click to edit/add: Last Vital Signs Temp 98.2 F 07/19/23 14:46 Pulse 87 07/19/23 14:46 Resp 07/19/23 14:46 BP 123/97 H 07/19/23 16:16 Pulse Ox 96 07/19/23 16:16 O2 Del Method Room Air 07/19/23 14:46 Course Vital Signs Vital signs: Vital Signs Temperature 98.2 F 07/19/23 14:46 Pulse Rate 87 07/19/23 14:46 Respiratory Rate 07/19/23 14:46 Blood Pressure 118/66 07/19/23 14:46 Pulse Oximetry 99 07/19/23 14:46 Oxygen Delivery Method Room Air 07/19/23 14:46 Temperature 98.2 F 07/19/23 14:46 Pulse Rate 87 07/19/23 14:46 Respiratory Rate 07/19/23 14:46 Blood Pressure 123/97 H 07/19/23 16:16 Pulse Oximetry 96 07/19/23 16:16 Oxygen Delivery Method Room Air 07/19/23 14:46 Medical Decision Making [facility] Narrative Medical decision making narrative: patient is had multiple CAT scans of her abdomen and pelvis, history of kidney stones, 3 mm noted in the right kidney, her symptoms are left flank, urine suspicious for urinary tract infection patient believes she had a catheter with her neck surgery. She has been taking Percocet four times a day for her neck pain and denies relief with her flank pain. Patient be given IV fluids, nausea medicine and 0.5 mg IV Dilaudid for reviewing her ALLERGY profile. She is agreeable to a KUB with radiation risks discussed given her significant prior imaging. Patient states she sees a urologist in [place]. reviewed prior urine culture, sensitive to Macrobid. Patient on pain medication noted to be constipated on x-ray, we discussed her history of kidney stones and recommend she follow up with urologist for further testing if indicated. Patient be placed on Zofran, mag Citrate x1 and mirlax. patient's lab studies reviewed, history of diabetes. Patient's labs look better than prior studies on multiple comparison. Recommend she continue with clear fluids, try to limit oral pain medication use with her neck surgery and follow-up to PCP pending urine culture results.abdomen reexamined, nonsurgical. The patient is to followup with primary care physician/ Urologist in next 2-3 days or to return to the emergency department should any of the signs or symptoms worsen or new symptoms develop. Patient had questions answered. The patient agrees with the following Diagnosis and Treatment plan and the patient will be discharged home. Medical Records Medical records reviewed: Yes I reviewed the patient's medical records Medical records narrative: GISEL PAT MRN: [id number] date: 1975 Sex: F Assigned Patient Location: ER Current Patient Location: ER Accession/Order Number: [id number] Exam Date: 05/20/2023 01:15 Report Date: 05/20/2023 03:55 At the request of: HOMERO DE LA ROSA Procedure: CT abdomen pelvis wo con EXAM: CT abdomen pelvis wo con HISTORY: left flank pain COMPARISON: Multiple priors, most recent CT abdomen pelvis 03/23/2023 TECHNIQUE: Multiple axial views CT abdomen pelvis without IV contrast. Coronal sagittal reformats. FINDINGS: Visualized lung bases demonstrate mild bilateral lower lung linear atelectasis. Visualized cardiac apex is unremarkable. Small hiatal hernia. Stomach is underdistended. No perigastric stranding. Status post cholecystectomy. Liver, pancreas, spleen, adrenal glands, left kidney, underdistended urinary bladder, and appendix are unremarkable. Uterus is surgically absent. Other pelvic structures are unremarkable by noncontrast CT exam. A 3 mm nonobstructing right superior renal stone. Moderate amount of stool within the large bowel. Colonic diverticula. No evidence for small bowel obstruction, large ascites, or free air. No acute bony abnormality. IMPRESSION: A 3 mm nonobstructing right superior renal stone. No radiopaque left renal stone. No radiopaque ureteral or urinary bladder stone. No hydronephrosis or perinephric fluid collection. Colonic diverticula. Moderate amount of stool within the colon. Small hiatal hernia. Electronically authenticated by: NAREN TSE Date: 05/20/2023 03:55 Lab Data Lab results reviewed: Yes I reviewed the patient's lab results Labs: Lab Results 07/19/23 07/19/23 Range/Units 15:35 15:58 WBC 6.5 (4.0-11.0) 10^3/uL RBC 4.76 (4.20-5.40) 10^6/uL Hgb 13.7 (12.0-16.0) g/dL Hct 42.2 (36.0-48.0) % MCV 88.7 (81.0-99.0) fL MCH 28.8 (26.7-34.0) pg MCHC 32.5 (29.9-35.2) g/dL RDW 13.0 (11.0-15.0) % Plt Count 279 (150-450) 10^3/uL MPV 9.4 L (9.5-13.5) fL Neut % (Auto) 55.1 (43.0-75.0) % Lymph % (Auto) 32.2 (20.5-60.0) % [place] % (Auto) 7.8 (1.7-12.0) % Eos % (Auto) 3.8 (0.9-7.0) % Baso % (Auto) 0.9 (0.2-2.0) % Neut # (Auto) 3.6 (1.4-6.5) 10^3/uL Lymph # (Auto) 2.1 (1.2-3.8) 10^3/uL [place] # (Auto) 0.5 (0.3-0.8) 10^3/uL Eos # (Auto) 0.3 (0.0-0.7) 10^3/uL Baso # (Auto) 0.1 (0.0-0.1) 10^3/uL Abs Immat Gran (auto) 0.01 (0.00-0.03) 10^3/uL Imm/Tot Granulo (auto) 0.2 (0.0-0.5) % Sodium 142 (136-145) mmol/L Potassium 4.0 (3.5-5.1) mmol/L Chloride 101 (98-107) mmol/L Carbon Dioxide 30.9 (21.0-32.0) mmol/L Anion Gap 14.1 BUN 22.0 H (7.0-18.0) mg/dL Creatinine 0.92 (0.55-1.02) mg/dL Est GFR ( Amer) >60 (>=60) Est GFR (Non-Af Amer) >60 (>=60) BUN/Creatinine Ratio 23.9 Glucose 94 (74-106) mg/dL Lactate 1.3 (0.4-2.0) mmol/L Calcium 9.5 (8.5-10.1) mg/dL Total Bilirubin 0.4 (0.2-1.0) mg/dL AST 29 (15-37) U/L ALT 32 (14-59) U/L Alkaline Phosphatase 111 (46-116) U/L Total Protein 8.3 H (6.4-8.2) g/dL Albumin 3.6 (3.4-5.0) g/dL Globulin 4.7 g/dL Albumin/Globulin Ratio 0.8 Lipase 28.0 (16.0-77.0) U/L Urine Color Dk. yellow (YELLOW) Urine Clarity Cloudy A (CLEAR) Urine pH 5.5 (5.0-9.0) Ur Specific [place] >=1.030 A (1.005-1.025) Urine Protein 30 A (NEG/TRACE) mg/dL Urine Glucose (UA) Negative (NEGATIVE) mg/dL Urine Ketones Trace A (NEGATIVE) mg/dL Urine Occult Blood Large A (NEGATIVE) Urine Nitrite Negative (NEGATIVE) Urine Bilirubin Small A (NEGATIVE) Urine Urobilinogen 1.0 (0.2-1.0) EU/dL Ur Leukocyte Esterase Trace A (NEGATIVE) Urine RBC 10-20 A (0-2) #/HPF Urine WBC 2-5 A (NONE SEEN) #/HPF Ur Squamous Epith Cells Few A (NONE/RARE) #/LPF Urine Crystals Seen A (None Seen) #/HPF Calcium Oxalate Crystal Few Urine Bacteria Small A (NONE SEEN) #/HPF Urine Casts None seen (NONE SEEN) #/LPF Urine Mucus Trace A (NONE SEEN) Ur Culture Indicated? Yes Acetone, Qual Negative (NEGATIVE) Imaging Data xr abd: Radiologist's impression: ITS Impressions Abdomen X-Ray 07/19/23 15:40 IMPRESSION: No acute abnormality on radiographic exam. Constipation. Electronically authenticated by: BIRDIE LAUREN Date: 07/19/2023 16:33 Discharge Plan Discharge Chief Complaint: Urogenital-Female Clinical Impression: UTI (urinary tract infection), Constipation, Nausea Patient Disposition: Left Against Medical Advice Time of Disposition Decision: 16:47 Condition: Good Prescriptions / Home Meds: New ondansetron HCl 4 mg tablet 4 mg PO Q6H PRN (Reason: nausea and vomiting) Qty: 12 0RF nitrofurantoin monohyd/m-cryst [Macrobid] 100 mg capsule 100 mg PO BID 7 Days Qty: 14 0RF Rx Instructions: must administer with a meal/food polyethylene glycol 3350 [Miralax] 17 gram powder in packet 17 g PO DAILY 14 Days Qty: 14 0RF No Action olanzapine 5 mg tablet 5 mg PO DAILY Rx Instructions: HS aripiprazole 10 mg tablet 10 mg PO QDAY duloxetine [Cymbalta] 60 mg capsule,delayed release(DR/EC) 60 mg PO DAILY buspirone 15 mg tablet 15 mg PO TID celecoxib 200 mg capsule 200 mg PO Q24H Hold Instructions: on hold after surgery gabapentin 600 mg tablet 600 mg PO Q8H hydroxyzine pamoate 50 mg capsule 50 mg PO Q6H PRN (Reason: anxiety) insulin aspart U-100 [Novolog FlexPen U-100 Insulin] 100 unit/mL (3 mL) insulin pen 20 unit SUBCUT TID Patient Comments: plus sliding scale insulin degludec [Tresiba FlexTouch U-100] 100 unit/mL (3 mL) insulin pen 32 unit SUBCUT Q24H Hold Instructions: needs prior authorization loratadine 10 mg tablet 10 mg PO Q24H metoprolol tartrate 25 mg tablet 50 mg PO Q12H omeprazole 20 mg capsule,delayed release(DR/EC) 20 mg PO DAILY rosuvastatin 20 mg tablet 20 mg PO BEDTIME tizanidine 4 mg tablet 4 mg PO Q8H PRN (Reason: spasms) trazodone 100 mg tablet 200 mg PO BEDTIME meclizine [Antivert] 50 mg tablet 50 mg PO BID PRN (Reason: dizziness) Qty: 20 0RF ondansetron 4 mg tablet,disintegrating 4 mg PO Q4H PRN (Reason: nausea and vomiting) 3 Days Qty: 6 0RF Instructions: Constipation (ED), Urinary Incontinence (ED) Additional Instructions: please contact her family doctor tomorrow for follow-up in 2 days in the office. Recommend follow-up to urologist in [place] in 2-3 days Stand Alone Forms: Portal Instructions Referrals: Physician,Non-Staff, MD [Primary Care Provider] - 1 week
[2023-07-19 16:04] LABS: Basophils Absolute Auto 0.1 10^3/uL (0.0-0.1); Basophils Percent Auto 0.9 % (0.2-2.0); Eosinophils Absolute Auto 0.3 10^3/uL (0.0-0.7); Eosinophils Percent Auto 3.8 % (0.9-7.0); Hematocrit 42.2 % (36.0-48.0); Hemoglobin 13.7 g/dL (12.0-16.0); Immature Granulocytes Abs Auto 0.01 10^3/uL (0.00-0.03); Immature Granulocytes Pct Auto 0.2 % (0.0-0.5); Lymphocytes Absolute Auto 2.1 10^3/uL (1.2-3.8); Lymphocytes Percent Auto 32.2 % (20.5-60.0); Mean Corpuscular HGB Conc 32.5 g/dL (29.9-35.2); Mean Corpuscular Hemoglobin 28.8 pg (26.7-34.0); Mean Corpuscular Volume 88.7 fL (81.0-99.0); Mean Platelet Volume 9.4 fL (9.5-13.5); Monocytes Absolute Auto 0.5 10^3/uL (0.3-0.8); Monocytes Percent Auto 7.8 % (1.7-12.0); Neutrophils Absolute Auto 3.6 10^3/uL (1.4-6.5); Neutrophils Percent Auto 55.1 % (43.0-75.0); Platelet Count 279 10^3/uL (150-450); Red Blood Count 4.76 10^6/uL (4.20-5.40); White Blood Count 6.5 10^3/uL (4.0-11.0)
[2023-07-19 16:12] LABS: Bilirubin Urine SMALL (NEGATIVE); Blood Urine LARGE (NEGATIVE); Clarity Urine CLOUDY (CLEAR); Color Urine DK. YELLOW (YELLOW); Glucose Urine UA NEGATIVE (NEGATIVE); Ketones Urine TRACE mg/dL (NEGATIVE); Leukocyte Esterase Urine TRACE (NEGATIVE); Nitrite Urine NEGATIVE (NEGATIVE); Protein Urine 30 mg/dL (NEG/TRACE); Specific Gravity Urine >=1.030 (1.005-1.025); pH Urine 5.5 (5.0-9.0)
[2023-07-19] MEDS: 0.9 % SODIUM CHLORIDE 1,000 ML 999 ML IV (16:12)
[2023-07-19] MEDS: HYDROMORPHONE HCL 0.5 MG/0.5 ML SYRINGE IV (16:12)
[2023-07-19] MEDS: ONDANSETRON PF 4 MG/2 ML VIAL IV (16:12)
[2023-07-19 16:16] VITALS: BP 123/97; O2SAT 96
[2023-07-19 16:23] LABS: Acetone NEGATIVE (NEGATIVE)
[2023-07-19 16:24] LABS: Lactate/Lactic Acid 1.3 mmol/L (0.4-2.0)
[2023-07-19 16:25] LABS: Urine Microscopic Indicated YES
[2023-07-19 16:30] LABS: Bacteria Urine SMALL #/HPF (NONE SEEN); Mucus Urine TRACE (NONE SEEN)
[2023-07-19 16:31] LABS: Calcium Oxalate Crystals Urine FEW; Cast Seen? NONE SEEN #/LPF (NONE SEEN); Crystals Seen? Seen #/HPF (None Seen); Squamous Epithelial Cell Urine FEW #/LPF (NONE/RARE); Urine Culture Indicated YES
[2023-07-19 16:31] LABS: Alanine Aminotransferase 32 U/L (14-59); Albumin Globulin Ratio 0.8; Albumin Level 3.6 g/dL (3.4-5.0); Alkaline Phosphatase 111 U/L (46-116); Anion Gap 14.1; Aspartate Amino Transferase 29 U/L (15-37); BUN Creatinine Ratio 23.9; Bilirubin Total 0.4 mg/dL (0.2-1.0); Calcium 9.5 mg/dL (8.5-10.1); Carbon Dioxide 30.9 mmol/L (21.0-32.0); Chloride 101 mmol/L (98-107); Estimated GFR (African America >60 (>=60); Estimated GFR (Non-African Ame >60 (>=60); Globulin 4.7 g/dL; Glucose 94 mg/dL (74-106); Sodium 142 mmol/L (136-145); Total Protein 8.3 g/dL (6.4-8.2)
[2023-07-19] MEDS: NITROFURANTOIN MONOHYD/MAC-CRST 100 MG CAPSULE PO (16:48)
== END 2023-07-19 17:07 | disposition left against medical advice (07) ==
PROVIDERS: Personal Emergency Response Attendant; Emergency Provider Emergency Medicine
DX: N39.0 Urinary tract infection, site not specified (principal); K59.00 Constipation, unspecified; R11.0 Nausea; Z87.442 Personal history of urinary calculi; E11.9 Type 2 diabetes mellitus without complications; Z79.899 Other long term (current) drug therapy; Z79.4 Long term (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 of insulin
CPT/HCPCS: 36415; 74018; 80053; 81001; 82009; 83605; 83690; 85025; 87086; 87150; 87186; 96374; 96375; 99285; J1170; J2405

== ENCOUNTER 2023-07-21 18:09 | Emergency (ER) | payer OTHER, SELFPAY ==
[2023-07-21 18:12] VITALS: BP 163/102; PULSE 107; RESP 18; TEMP 37.2; O2SAT 98; BMI 39.2
--- NOTE | 2023-07-21 18:26 | CT_ITS ---
[address] [address] Patient Name: GISEL PAT MRN: [id number] date: 1975 Sex: F Assigned Patient Location: ER Current Patient Location: Accession/Order Number: [id number] Exam Date: 07/21/2023 19:14 Report Date: 07/21/2023 20:35 At the request of: MARCELLA VINSON Procedure: CT abdomen pelvis wo con EXAM: CT abdomen pelvis wo con; [id number] REASON FOR EXAM: right flank pain TECHNIQUE: Helical CT images of the abdomen and pelvis were obtained without IV contrast. Multiplanar reformats were generated at the scanner. Dose reduction technique used: Automated exposure control and/or adjustment of the mA and/or kV according to patient size and/or use of iterative reconstruction technique. COMPARISON: CT abdomen and pelvis 05/20/2023. FINDINGS: Note: Compared with a contrast-enhanced CT exam, noncontrast images are relatively insensitive for detection of solid organ and vascular abnormalities. Visualized Chest: No pleural effusion or any significant pulmonary findings. Abdomen: Liver: Within normal limits. Gallbladder: Resected. Bile Ducts: No significant biliary ductal dilatation. Pancreas: No ductal dilatation or inflammatory changes. Spleen: No splenomegaly. Adrenals: No nodules. Kidneys: -No hydronephrosis. -Single non obstructing punctate stone in the right kidney. Vascular: No aortic aneurysm. Lymph Nodes: No adenopathy. Abdominal Wall: No hernia or mass. Pelvis: No mass or adenopathy. Bowel/Peritoneal Cavity/Mesentery: -Mildly above average colonic stool burden. -No bowel obstruction or significant ileus. -No acute inflammatory changes. -No free air or free fluid. Musculoskeletal: No acute fracture or suspicious osseous lesion. CT/CT abdomen pelvis wo con IMPRESSION: 1. No acute intra abdominal abnormality. 2. Punctate nonobstructing stone in the right kidney. 3. Mildly above-average colonic stool burden. Electronically authenticated by: ELIZABETH REYNOSO Date: 07/21/2023 20:35
--- NOTE | 2023-07-21 18:28 | ED.GENADUL1 ---
HPI - General Adult General Chief complaint: Nausea/Vomiting/Diarrhea Stated complaint: flank pain Time Seen by Provider: 07/21/23 18:14 Source: patient Mode of arrival: walk-in Limitations: no limitations History of Present Illness HPI narrative: Patient is a 48-year-old female who is well-known to this emergency department who presents for right flank pain and rectal bleeding. Patient states she was seen in this emergency department 2 days ago for left flank pain. She had abdominal x-ray showing a large volume of stool and she has been using medication to help with constipation. She states in the last day she has developed pain in the right flank. Of note she was educated that her previous CT scan in April showed a right renal stone but no stones on the left kidney. She states she feels nauseous but she has had no objective fevers, vomiting. She states throughout the day with bowel movements and urination she has noted red blood, she was not sure if this may be vaginal or rectal. Related Data Home Medications Medication Instructions Recorded Confirmed celecoxib 200 mg capsule 200 mg PO Q24H 12/30/22 07/21/23 gabapentin 600 mg tablet 600 mg PO Q8H 12/30/22 07/21/23 hydroxyzine pamoate 50 mg capsule 50 mg PO Q6H PRN anxiety 12/30/22 07/21/23 insulin aspart U-100 100 unit/mL 20 unit subcut TID 12/30/22 07/21/23 (3 mL) subcutaneous pen (Novolog FlexPen U-100 Insulin aspart) insulin degludec 100 unit/mL (3 32 unit subcut Q24H 12/30/22 07/21/23 mL) subcutaneous pen (Tresiba FlexTouch U-100 insulin) loratadine 10 mg tablet 10 mg PO Q24H 12/30/22 07/21/23 metoprolol tartrate 25 mg tablet 50 mg PO Q12H 12/30/22 07/21/23 rosuvastatin 20 mg tablet 20 mg PO BEDTIME 12/30/22 07/21/23 tizanidine 4 mg tablet 4 mg PO Q8H PRN spasms 12/30/22 07/21/23 trazodone 100 mg tablet 200 mg PO BEDTIME 12/30/22 07/21/23 olanzapine 5 mg tablet 5 mg PO DAILY 01/17/23 07/21/23 aripiprazole 10 mg tablet 10 mg PO QDAY 03/28/23 07/21/23 buspirone 15 mg tablet 15 mg PO TID 07/19/23 07/21/23 duloxetine 60 mg capsule,delayed 60 mg PO DAILY 07/19/23 07/21/23 release (Cymbalta) dicyclomine 10 mg capsule 10 mg PO .q6 07/21/23 07/21/23 dulaglutide 0.75 mg/0.5 mL 0.75 mg subcut .weekly 07/21/23 07/21/23 subcutaneous pen injector (Trulicity) duloxetine 30 mg capsule,delayed 30 mg PO DAILY 07/21/23 07/21/23 release insulin glargine 100 unit/mL (3 20 unit subcut DAILY 07/21/23 07/21/23 mL) subcutaneous pen (Lantus Solostar U-100 Insulin) meclizine 25 mg tablet 25 mg PO .q8 07/21/23 07/21/23 oxycodone-acetaminophen 5 mg-325 1 tab PO DAILY 07/21/23 07/21/23 mg tablet pantoprazole 40 mg tablet,delayed 40 mg PO DAILY 07/21/23 07/21/23 release polyethylene glycol 3350 17 17 g PO DAILY 07/21/23 07/21/23 gram/dose oral powder Previous Rx's Medication Instructions Recorded meclizine 50 mg tablet (Antivert) 50 mg PO BID PRN dizziness #20 tabs 03/01/23 ondansetron 4 mg disintegrating 4 mg PO Q4H PRN nausea and 04/27/23 tablet vomiting 3 days #6 tabs ondansetron HCl 4 mg tablet 4 mg PO Q6H PRN nausea and 07/19/23 vomiting #12 tabs polyethylene glycol 3350 17 gram 17 g PO DAILY 14 days #14 ea 07/19/23 oral powder packet (Miralax) magnesium citrate (Citrate of 296 ml PO DAILY constipation #296 07/21/23 Magnesia oral) mL ondansetron 4 mg disintegrating 4 mg PO Q6H PRN nausea and 07/21/23 tablet vomiting #12 tabs Allergies Allergy/AdvReac Type Severity Reaction Status Date / Time melon Allergy Severe Anaphylaxis Verified 07/19/23 14:43 aspirin Allergy Unknown Verified 07/19/23 14:43 fentanyl Allergy Unknown Verified 07/19/23 14:43 ketorolac [From Toradol] Allergy Unknown Verified 03/28/23 19:28 meperidine [From Demerol] Allergy Unknown Verified 07/19/23 14:43 morphine Allergy Unknown Verified 07/19/23 14:43 nalbuphine [From Nubain] Allergy Unknown Verified 07/19/23 14:43 NSAIDS (Non-Steroidal Allergy Unknown Verified 07/19/23 14:43 Anti-Inflamma Penicillins Allergy Unknown Verified 07/19/23 14:43 Review of Systems ROS Constitutional Denies: fever or chills Ears, nose, mouth, and throat Denies: throat pain or nasal congestion Cardiovascular Denies: chest pain Respiratory Denies: shortness of breath Gastrointestinal Reports: abdominal pain, nausea, constipation and blood in stool; Denies: vomiting or diarrhea Genitourinary Denies: painful urination Musculoskeletal Denies: back pain Integumentary/Breast Denies: rash Neurological Denies: headache PFSH PFSH Social History Smoking status: Never smoker Exam Narrative Exam Narrative: Gen.: Awake, alert, in no distress Head: Normocephalic, atraumatic ENT: Moist mucous membranes Respiratory: No respiratory distress, lungs clear bilaterally Cardio: Regular rate and rhythm Gastrointestinal: Abdomen is soft, nondistended and nontender to palpation, No CVA tenderness, rectal exam with dried red blood at the rectal opening, no hemorrhoids or active blood per rectum. Rectal exam performed with Sarah Aguiar RN at bedside throughout the duration of the exam. Extremities: Moves extremities equally Psych: Normal mood and affect Neuro: No focal neuro deficit Skin: Warm, dry, intact Constitutional Vital Signs, click to edit/add: Last Vital Signs Temp 98.9 F 07/21/23 18:12 Pulse 100 H 07/21/23 19:48 Resp 17 07/21/23 19:48 BP 145/91 H 07/21/23 19:51 Pulse Ox 98 07/21/23 18:12 O2 Del Method Room Air 07/21/23 18:12 Course Vital Signs Vital signs: Vital Signs Temperature 98.9 F 07/21/23 18:12 Pulse Rate 107 H 07/21/23 18:12 Respiratory Rate 18 07/21/23 18:12 Blood Pressure 163/102 H 07/21/23 18:12 Pulse Oximetry 98 07/21/23 18:12 Oxygen Delivery Method Room Air 07/21/23 18:12 Temperature 98.9 F 07/21/23 18:12 Pulse Rate 100 H 07/21/23 19:48 Respiratory Rate 17 07/21/23 19:48 Blood Pressure 145/91 H 07/21/23 19:51 Pulse Oximetry 98 07/21/23 18:12 Oxygen Delivery Method Room Air 07/21/23 18:12 Medical Decision Making MDM Narrative Medical decision making narrative: As the patient was having rectal bleeding, when increasing right-sided flank pain and had negative x-rays 2 days ago, she was sent for CT of the abdomen and pelvis without contrast. She was given IV fluids and 0.5 mg IV Dilaudid with Zofran. She had no episodes of emesis in the emergency department but did frequently request more pain medication. She was given sublingual Levsin. Labs are unremarkable, CT of the abdomen and pelvis shows the patient has no evidence of acute ureteral stones or hydronephrosis. There is no stranding of the kidneys. CT shows she is constipated. We will avoid further narcotics. After my initial evaluation, the patient states that she feels sad and would like to be admitted to [facility]. After she was medically cleared with labs and CT, we contacted [facility] and they spoke with the patient who revealed that in the past she has had a history of suicidal ideation and the counseling services requested we put the patient on suicide precautions. Additional labs for psych clearance were ordered including EKG and Tylenol/aspirin/ethanol levels. These are unremarkable and the patient is medically cleared for psychiatric evaluation. Patient spoke with a counselor and she does not represent an immediate risk for suicide or homicide and was safety plan to go home. I do not see any indication for this patient to receive additional narcotics and she is discharged home with magnesium citrate and Zofran to treat her constipation. Follow-up with PCP and return to the ER if symptoms change or worsen. Medical Records Medical records reviewed: Yes I reviewed the patient's medical records Lab Data Lab results reviewed: Yes I reviewed the patient's lab results Labs: Lab Results 07/21/23 07/21/23 Range/Units 18:35 18:46 WBC 7.2 (4.0-11.0) 10^3/uL RBC 4.89 (4.20-5.40) 10^6/uL Hgb 13.9 (12.0-16.0) g/dL Hct 42.7 (36.0-48.0) % MCV 87.3 (81.0-99.0) fL MCH 28.4 (26.7-34.0) pg MCHC 32.6 (29.9-35.2) g/dL RDW 12.6 (11.0-15.0) % Plt Count 240 (150-450) 10^3/uL MPV 9.3 L (9.5-13.5) fL Neut % (Auto) 52.5 (43.0-75.0) % Lymph % (Auto) 34.4 (20.5-60.0) % [place] % (Auto) 8.8 (1.7-12.0) % Eos % (Auto) 3.1 (0.9-7.0) % Baso % (Auto) 1.1 (0.2-2.0) % Neut # (Auto) 3.8 (1.4-6.5) 10^3/uL Lymph # (Auto) 2.5 (1.2-3.8) 10^3/uL [place] # (Auto) 0.6 (0.3-0.8) 10^3/uL Eos # (Auto) 0.2 (0.0-0.7) 10^3/uL Baso # (Auto) 0.1 (0.0-0.1) 10^3/uL Abs Immat Gran (auto) 0.01 (0.00-0.03) 10^3/uL Imm/Tot Granulo (auto) 0.1 (0.0-0.5) % PT 10.1 (9.0-11.6) sec INR 0.95 Sodium 133 L (136-145) mmol/L Potassium 4.0 (3.5-5.1) mmol/L Chloride 99 (98-107) mmol/L Carbon Dioxide 29.9 (21.0-32.0) mmol/L Anion Gap 8.1 BUN 10.0 (7.0-18.0) mg/dL Creatinine 0.81 (0.55-1.02) mg/dL Est GFR ( Amer) >60 (>=60) Est GFR (Non-Af Amer) >60 (>=60) BUN/Creatinine Ratio 12.3 Glucose 133 H (74-106) mg/dL Lactate 1.2 (0.4-2.0) mmol/L Calcium 9.7 (8.5-10.1) mg/dL Total Bilirubin 0.2 (0.2-1.0) mg/dL AST 14 L (15-37) U/L ALT 23 (14-59) U/L Alkaline Phosphatase 103 (46-116) U/L Total Protein 8.2 (6.4-8.2) g/dL Albumin 3.4 (3.4-5.0) g/dL Globulin 4.8 g/dL Albumin/Globulin Ratio 0.7 Serum HCG, Qual Negative (NEGATIVE) Urine Color Lt. yellow (YELLOW) Urine Clarity Clear (CLEAR) Urine pH 8.5 (5.0-9.0) Ur Specific [place] 1.015 (1.005-1.025) Urine Protein Negative (NEG/TRACE) mg/dL Urine Glucose (UA) Negative (NEGATIVE) mg/dL Urine Ketones Negative (NEGATIVE) mg/dL Urine Occult Blood Large A (NEGATIVE) Urine Nitrite Negative (NEGATIVE) Urine Bilirubin Negative (NEGATIVE) Urine Urobilinogen 0.2 (0.2-1.0) EU/dL Ur Leukocyte Esterase Small A (NEGATIVE) Urine RBC 10-20 A (0-2) #/HPF Urine WBC 2-5 A (NONE SEEN) #/HPF Ur Squamous Epith Cells Rare (NONE/RARE) #/LPF Urine Crystals None seen (None Seen) #/HPF Urine Bacteria None seen (NONE SEEN) #/HPF Urine Casts None seen (NONE SEEN) #/LPF Urine Mucus None seen (NONE SEEN) Ur Culture Indicated? No Salicylates <2.8 (<=19.9) mg/dL Urine Opiates Screen Negative (NEGATIVE) Ur Buprenorphine Scrn Negative (NEGATIVE) Ur Oxycodone Screen Negative (NEGATIVE) Urine Methadone Screen Negative (NEGATIVE) Acetaminophen <2.0 L (10.0-30.0) ug/mL Ur Barbiturates Screen Negative (NEGATIVE) U Tricyclic Antidepress Negative (NEGATIVE) Ur Phencyclidine Scrn Negative (NEGATIVE) Ur Amphetamines Screen Negative (NEGATIVE) U Methamphetamines Scrn Negative (NEGATIVE) U Benzodiazepines Scrn Negative (NEGATIVE) Urine Cocaine Screen Negative (NEGATIVE) U Cannabinoids Screen Negative (NEGATIVE) Ethanol Quant <3 mg/dL Imaging Data CT scan - abdomen: Attestation: I have reviewed the pertinent imaging results. Radiologist's impression: ITS Impressions Abdomen/Pelvis CT 07/21/23 18:26 IMPRESSION: 1. No acute intra abdominal abnormality. 2. Punctate nonobstructing stone in the right kidney. 3. Mildly above-average colonic stool burden. Electronically authenticated by: ELIZABETH REYNOSO Date: 07/21/2023 20:35 Discharge Plan Discharge Chief Complaint: Nausea/Vomiting/Diarrhea Clinical Impression: Right flank pain, Nausea & vomiting, Constipation, Rectal bleeding Patient Disposition: Home, Self-Care Time of Disposition Decision: 21:17 Condition: Good Prescriptions / Home Meds: New ondansetron 4 mg tablet,disintegrating 4 mg PO Q6H PRN (Reason: nausea and vomiting) Qty: 12 0RF magnesium citrate [Citrate of Magnesia] Solution 296 ml PO DAILY Qty: 296 0RF Rx Instructions: Take half of the bottle with 8 oz of water, take the other half after 1 hour with 8 oz of water No Action olanzapine 5 mg tablet 5 mg PO DAILY Rx Instructions: HS aripiprazole 10 mg tablet 10 mg PO QDAY duloxetine [Cymbalta] 60 mg capsule,delayed release(DR/EC) 60 mg PO DAILY buspirone 15 mg tablet 15 mg PO TID ondansetron HCl 4 mg tablet 4 mg PO Q6H PRN (Reason: nausea and vomiting) Qty: 12 0RF polyethylene glycol 3350 [Miralax] 17 gram powder in packet 17 g PO DAILY 14 Days Qty: 14 0RF dicyclomine 10 mg capsule 10 mg PO .q6 Trulicity 0.75 mg/0.5 mL pen injector 0.75 mg SUBCUT .weekly duloxetine 30 mg capsule,delayed release(DR/EC) 30 mg PO DAILY insulin glargine [Lantus Solostar U-100 Insulin] 100 unit/mL (3 mL) insulin pen 20 unit SUBCUT DAILY meclizine 25 mg tablet 25 mg PO .q8 oxycodone-acetaminophen 5-325 mg tablet 1 tab PO DAILY pantoprazole 40 mg tablet,delayed release (DR/EC) 40 mg PO DAILY polyethylene glycol 3350 17 gram/dose powder 17 g PO DAILY celecoxib 200 mg capsule 200 mg PO Q24H Hold Instructions: on hold after surgery gabapentin 600 mg tablet 600 mg PO Q8H hydroxyzine pamoate 50 mg capsule 50 mg PO Q6H PRN (Reason: anxiety) insulin aspart U-100 [Novolog FlexPen U-100 Insulin] 100 unit/mL (3 mL) insulin pen 20 unit SUBCUT TID Patient Comments: plus sliding scale insulin degludec [Tresiba FlexTouch U-100] 100 unit/mL (3 mL) insulin pen 32 unit SUBCUT Q24H Hold Instructions: needs prior authorization loratadine 10 mg tablet 10 mg PO Q24H metoprolol tartrate 25 mg tablet 50 mg PO Q12H rosuvastatin 20 mg tablet 20 mg PO BEDTIME tizanidine 4 mg tablet 4 mg PO Q8H PRN (Reason: spasms) trazodone 100 mg tablet 200 mg PO BEDTIME meclizine [Antivert] 50 mg tablet 50 mg PO BID PRN (Reason: dizziness) Qty: 20 0RF ondansetron 4 mg tablet,disintegrating 4 mg PO Q4H PRN (Reason: nausea and vomiting) 3 Days Qty: 6 0RF Instructions: Constipation (ED), Rectal Bleeding (ED) Additional Instructions: Your labs are improved, CT is negative except for constipation. You need to take the prescribed medications for constipation and follow up with your doctor. Stand Alone Forms: Portal Instructions Referrals: Physician,Non-Staff, MD [Primary Care Provider] - 1 week Discharge Date/Time: 07/21/23 21:46
[2023-07-21 18:54] LABS: Basophils Absolute Auto 0.1 10^3/uL (0.0-0.1); Basophils Percent Auto 1.1 % (0.2-2.0); Eosinophils Absolute Auto 0.2 10^3/uL (0.0-0.7); Eosinophils Percent Auto 3.1 % (0.9-7.0); Hematocrit 42.7 % (36.0-48.0); Hemoglobin 13.9 g/dL (12.0-16.0); Immature Granulocytes Abs Auto 0.01 10^3/uL (0.00-0.03); Immature Granulocytes Pct Auto 0.1 % (0.0-0.5); Lymphocytes Absolute Auto 2.5 10^3/uL (1.2-3.8); Lymphocytes Percent Auto 34.4 % (20.5-60.0); Mean Corpuscular HGB Conc 32.6 g/dL (29.9-35.2); Mean Corpuscular Hemoglobin 28.4 pg (26.7-34.0); Mean Corpuscular Volume 87.3 fL (81.0-99.0); Mean Platelet Volume 9.3 fL (9.5-13.5); Monocytes Absolute Auto 0.6 10^3/uL (0.3-0.8); Monocytes Percent Auto 8.8 % (1.7-12.0); Neutrophils Absolute Auto 3.8 10^3/uL (1.4-6.5); Neutrophils Percent Auto 52.5 % (43.0-75.0); Platelet Count 240 10^3/uL (150-450); Red Blood Count 4.89 10^6/uL (4.20-5.40); Red Cell Distribution Width 12.6 % (11.0-15.0); White Blood Count 7.2 10^3/uL (4.0-11.0)
[2023-07-21 18:56] LABS: Bilirubin Urine NEGATIVE (NEGATIVE); Blood Urine LARGE (NEGATIVE); Clarity Urine CLEAR (CLEAR); Color Urine LT. YELLOW (YELLOW); Glucose Urine UA NEGATIVE (NEGATIVE); Ketones Urine NEGATIVE (NEGATIVE); Leukocyte Esterase Urine SMALL (NEGATIVE); Nitrite Urine NEGATIVE (NEGATIVE); Protein Urine NEGATIVE (NEG/TRACE); Specific Gravity Urine 1.015 (1.005-1.025); Urobilinogen Urine 0.2 EU/dL (0.2-1.0); pH Urine 8.5 (5.0-9.0)
[2023-07-21 19:01] LABS: Urine Microscopic Indicated YES
[2023-07-21 19:04] LABS: Bacteria Urine NONE SEEN #/HPF (NONE SEEN)
[2023-07-21 19:05] LABS: Cast Seen? NONE SEEN #/LPF (NONE SEEN); Crystals Seen? None Seen #/HPF (None Seen); Mucus Urine NONE SEEN (NONE SEEN); Squamous Epithelial Cell Urine RARE #/LPF (NONE/RARE); Urine Culture Indicated NO
[2023-07-21 19:06] LABS: HCG Qualitative NEGATIVE (NEGATIVE)
[2023-07-21 19:08] LABS: INR 0.95; Prothrombin Time 10.1 sec (9.0-11.6)
[2023-07-21 19:09] LABS: Alanine Aminotransferase 23 U/L (14-59); Albumin Globulin Ratio 0.7; Albumin Level 3.4 g/dL (3.4-5.0); Alkaline Phosphatase 103 U/L (46-116); Anion Gap 8.1; Aspartate Amino Transferase 14 U/L (15-37); BUN Creatinine Ratio 12.3; Bilirubin Total 0.2 mg/dL (0.2-1.0); Calcium 9.7 mg/dL (8.5-10.1); Carbon Dioxide 29.9 mmol/L (21.0-32.0); Chloride 99 mmol/L (98-107); Estimated GFR (African America >60 (>=60); Estimated GFR (Non-African Ame >60 (>=60); Globulin 4.8 g/dL; Glucose 133 mg/dL (74-106); Sodium 133 mmol/L (136-145); Total Protein 8.2 g/dL (6.4-8.2)
[2023-07-21 19:11] LABS: Lactate/Lactic Acid 1.2 mmol/L (0.4-2.0)
[2023-07-21] MEDS: ONDANSETRON PF 4 MG/2 ML VIAL IV (19:30)
[2023-07-21] MEDS: HYDROMORPHONE HCL 0.5 MG/0.5 ML SYRINGE IV (19:30)
[2023-07-21] MEDS: 0.9 % SODIUM CHLORIDE 1,000 ML 999 ML IV (19:30)
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
[2023-07-21 19:48] VITALS: PULSE 100; RESP 17
[2023-07-21 19:51] VITALS: BP 145/91
--- NOTE | 2023-07-21 19:56 | ECG_ITS ---
The [facility] Test Date: 2023-07-21 Pat Name: GISEL PAT Department: Room: - Gender: Female Educator Senior Clinical: : 1975 Requested By: [id number] Order Number: [id number] Reading MD: KIMMY JAIME Measurements Intervals [place] Rate: 99 P: 58 [place]: 140 QRS: 43 QRSD: 86 T: 35 QT: 362 QTc: 418 Interpretive Statements 1100 Sinus rhythm 9110 normal ECG Compared to ECG 03/28/2023 20:21:42 Sinus tachycardia no longer present Electronically Signed On 07-22-2023 7:06:59 EST by KIMMY JAIME
[2023-07-21 20:00] VITALS: PULSE 100
[2023-07-21] MEDS: HYOSCYAMINE SULFATE 0.125 MG TAB.SUBL SL (20:25)
[2023-07-21 20:30] LABS: Ethanol <3 mg/dL; Salicylate <2.8 mg/dL (<=19.9)
--- NOTE | 2023-07-21 20:31 | PC.NURSE ---
Due to statement from pt to [facility], counselor advised this nurse to place the pt on suicide precautions This was done immediately Security contacted
[2023-07-21 20:33] LABS: Acetaminophen <2.0 ug/mL (10.0-30.0)
[2023-07-21 20:33] LABS: Amphetamine Screen Urine NEGATIVE (NEGATIVE); Benzodiazepines Screen Urine NEGATIVE (NEGATIVE); Cannabinoid Screen Urine NEGATIVE (NEGATIVE); Cocaine Screen Urine NEGATIVE (NEGATIVE); Methamphetamines Screen Urine NEGATIVE (NEGATIVE); Opiate Screen Urine NEGATIVE (NEGATIVE); Phencyclidine Screen Urine NEGATIVE (NEGATIVE)
[2023-07-21 20:34] LABS: Barbiturates Screen Urine NEGATIVE (NEGATIVE); Buprenorphine Screen Urine NEGATIVE (NEGATIVE); Methadone Screen Urine NEGATIVE (NEGATIVE); Oxycodone Screen Urine NEGATIVE (NEGATIVE); Tricyclic Antidepressant Urine NEGATIVE (NEGATIVE)
--- NOTE | 2023-07-21 20:55 | PC.NURSE ---
This nurse spoke with Debbie-Therapist from [facility] Pt now on the phone with Debbie
--- NOTE | 2023-07-21 21:24 | PC.NURSE ---
Per [facility] Therpist- she does not believe pt is a current suicide risk Pt released from constant observer at this time, waiting for Safety plan to be faxed over at this time and then pt will be discharged Pt udpated on decisions Pt states she is still in pain, this nurse informed her the PA has said she is not going to give her any more pain medication as her labwork and CT scans are negative Pt states she is itchy from the Levsin, this nurse requested a dose of Benadryl which was written Pt will have a phone call from a counselor at [phone] and already had an appointment scheduled for with her therapist to which she is to follow up with Pt aware of disxcharge plan but is not happy with the idea
[2023-07-21] MEDS: DIPHENHYDRAMINE HCL 50 MG/ML (1ML) VIAL 25 MG IV (21:34)
== END 2023-07-21 21:46 | disposition home or self-care (01) ==
PROVIDERS: Physician Assistant; Emergency Provider Emergency Medicine
DX: R10.9 Unspecified abdominal pain (principal); R11.2 Nausea with vomiting, unspecified; K59.00 Constipation, unspecified; K62.5 Hemorrhage of anus and rectum; Z79.899 Other long term (current) drug therapy; Z79.4 Long term (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 of insulin; Z79.85 Long-term (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 of injectable non-insulin antidiabetic drugs
CPT/HCPCS: 36415; 74176; 80053; 80179; 80307; 80320; 80329; 81001; 83605; 84703; 85025; 85610; 93005; 96374; 96375; 99285; J1170; J1200; J2405

== ENCOUNTER 2023-08-05 10:41 | Outpatient (RCR) | payer OTHER, SELFPAY | END 2023-10-28 09:23 | disposition home or self-care (01) | LOC: PT 10:41 | DX: M48.02 Spinal stenosis, cervical region (principal) | CPT/HCPCS: 97010; 97014; 97110; 97140; 97162 ==

== ENCOUNTER 2023-08-07 15:06 | Emergency (ER) | payer OTHER, SELFPAY ==
[2023-08-07 15:14] VITALS: BP 158/96; PULSE 115; RESP 18; TEMP 37.1; O2SAT 97; BMI 42.1
[2023-08-07 15:47] LABS: Bilirubin Urine NEGATIVE (NEGATIVE); Blood Urine NEGATIVE (NEGATIVE); Clarity Urine CLEAR (CLEAR); Color Urine LT. YELLOW (YELLOW); Glucose Urine UA 100 mg/dL (NEGATIVE); Ketones Urine NEGATIVE (NEGATIVE); Leukocyte Esterase Urine MODERATE (NEGATIVE); Nitrite Urine NEGATIVE (NEGATIVE); Protein Urine NEGATIVE (NEG/TRACE); Urobilinogen Urine 0.2 EU/dL (0.2-1.0)
[2023-08-07 16:03] LABS: RBC Urine 0-2 #/HPF (0-2)
[2023-08-07 16:04] LABS: Bacteria Urine NONE SEEN #/HPF (NONE SEEN); Cast Seen? NONE SEEN #/LPF (NONE SEEN); Crystals Seen? None Seen #/HPF (None Seen); Mucus Urine NONE SEEN (NONE SEEN); Squamous Epithelial Cell Urine MODERATE #/LPF (NONE/RARE)
[2023-08-07 16:14] LABS: Basophils Absolute Auto 0.1 10^3/uL (0.0-0.1); Basophils Percent Auto 0.9 % (0.2-2.0); Eosinophils Absolute Auto 0.3 10^3/uL (0.0-0.7); Hematocrit 40.9 % (36.0-48.0); Hemoglobin 13.4 g/dL (12.0-16.0); Immature Granulocytes Abs Auto 0.01 10^3/uL (0.00-0.03); Immature Granulocytes Pct Auto 0.2 % (0.0-0.5); Lymphocytes Percent Auto 29.9 % (20.5-60.0); Mean Corpuscular HGB Conc 32.8 g/dL (29.9-35.2); Mean Corpuscular Hemoglobin 29.3 pg (26.7-34.0); Mean Corpuscular Volume 89.3 fL (81.0-99.0); Mean Platelet Volume 8.6 fL (9.5-13.5); Monocytes Absolute Auto 0.5 10^3/uL (0.3-0.8); Monocytes Percent Auto 7.2 % (1.7-12.0); Neutrophils Absolute Auto 3.8 10^3/uL (1.4-6.5); Neutrophils Percent Auto 57.8 % (43.0-75.0); Platelet Count 202 10^3/uL (150-450); Red Blood Count 4.58 10^6/uL (4.20-5.40); Red Cell Distribution Width 12.8 % (11.0-15.0); White Blood Count 6.6 10^3/uL (4.0-11.0)
[2023-08-07] MEDS: PROCHLORPERAZINE 10 MG/2 ML VIAL IV (16:14)
[2023-08-07] MEDS: HYDROMORPHONE HCL 1 MG/ML CARTRIDGE IV (16:14)
[2023-08-07] MEDS: 0.9 % SODIUM CHLORIDE 1,000 ML 999 ML IV (16:14)
[2023-08-07 16:32] LABS: Alanine Aminotransferase 37 U/L (14-59); Albumin Globulin Ratio 0.8; Albumin Level 3.5 g/dL (3.4-5.0); Alkaline Phosphatase 93 U/L (46-116); Anion Gap 12.3; Aspartate Amino Transferase 16 U/L (15-37); BUN Creatinine Ratio 20.3; Bilirubin Total 0.2 mg/dL (0.2-1.0); Calcium 8.9 mg/dL (8.5-10.1); Carbon Dioxide 30.4 mmol/L (21.0-32.0); Chloride 105 mmol/L (98-107); Estimated GFR (African America >60 (>=60); Estimated GFR (Non-African Ame >60 (>=60); Globulin 4.6 g/dL; Glucose 117 mg/dL (74-106); Potassium 3.7 mmol/L (3.5-5.1); Sodium 144 mmol/L (136-145); Total Protein 8.1 g/dL (6.4-8.2)
--- NOTE | 2023-08-07 16:32 | XR_ITS ---
The [address] [address] Patient Name: GISEL PAT MRN: [id number] date: 1975 Sex: F Assigned Patient Location: ER Current Patient Location: ED.MAIN Accession/Order Number: [id number] Exam Date: 08/07/2023 16:45 Report Date: 08/07/2023 17:24 At the request of: MAHOGANY DE LA ROSA Procedure: XR abdomen 1V EXAMINATION: XR abdomen 1V, [id number] HISTORY: right flank COMPARISON: CT abdomen/pelvis 07/21/2023 and abdominal x-ray 07/19/2023. FINDINGS/IMPRESSION: No calcification projecting over either kidney or along the expected courses of the ureters. The punctate nonobstructing stone seen on the recent CT abdomen/pelvis is not seen, however, this is likely below the resolution of x-ray. Nonobstructive bowel gas pattern. Stool burden is mildly above-average, predominantly in the right hemicolon. Electronically authenticated by: ELIZABETH REYNOSO Date: 08/07/2023 17:24
[2023-08-07 16:35] LABS: Lactate/Lactic Acid 1.4 mmol/L (0.4-2.0)
--- NOTE | 2023-08-07 16:36 | ED.GENADUL1 ---
HPI - General Adult General Chief complaint: Abdominal Pain Stated complaint: r flank pain w/ vomiting Time Seen by Provider: 08/07/23 15:24 Source: patient Mode of arrival: walk-in History of Present Illness HPI narrative: Patient is a 48-year-old female who is presenting to the Emergency Room with chief complaint of right lower back pain radiating to the right flank, possible kidney stone. Patient says that she's had over 50 kidney stones in the past, she's had 2 lithotripsies into stents placed in the past. Patient's daughter is at bedside, she can drive home patient is having no urinary dysuria, frequency, or no urgency. Patient does not have her gallbladder, she does have her appendix. Patient does not have her uterus or ovaries. Patient has a urologist named Dr. Díaz in [place]. Patient has lived in [place] previously, this is where her urologist is that she has established. Patient has never seen a urologist locally to the [place] area. Patient states earlier today she been having nausea and vomiting, she not been able to keep any food or drink and yesterday or today. Patient been taking her Zofran and Phenergan that she has at home, this is not helping with her nausea. Patient also been having intermittent pain. Patient has multiple drug ALLERGIES. Patient has an ALLERGY to Toradol, states it causes itching and hives. She has an ALLERGY to morphine. Patient currently is not working, she is living with family. No other acute complaints. Patient is sitting up in the bed, looks uncomfortable and I walk into the room. All systems are negative except as noted/marked. All systems reviewed and otherwise negative. Nurses note and vital signs reviewed and patient is not hypoxic. General: The patient appears well and in no apparent distress. Patient is resting comfortably on cart. Patient is not toxic, lethargic, or listless Skin: Warm, dry, no pallor noted. There is no rash noted. No petechiae, purpura. Head: Normocephalic, atraumatic Eye: Normal conjunctiva, no drainage, EOMI. PERRL Ears, Nose, Mouth, and Throat: oral mucosa is moist. Nares patent. Mouth without vesicles. Cardiovascular: Regular Rate and Rhythm, no murmur, gallop, rub Respiratory: Patient is in no distress, no accessory muscle use, lungs are clear to auscultation, no wheezing, rales or rhonchi Back: non-tender, no left CVA tenderness. No CT LS midline pain. GI: Obese, mild to moderate right CVA tenderness palpation, mild right flank tenderness to palpation, mild right lower quadrant tenderness palpation, no suprapubic tenderness palpation ; no tenderness to palpation, no masses appreciated. No rebound, guarding, or rigidity noted. No distention Musculoskeletal: Patient has full range of motion of all of the extremities, no motor, sensory, or focal neurological deficits Neurological: A&O x4, normal speech Psychiatric: Cooperative Related Data Home Medications Medication Instructions Recorded Confirmed gabapentin 600 mg tablet 600 mg PO Q8H 12/30/22 08/07/23 insulin aspart U-100 100 unit/mL 20 unit subcut TID 12/30/22 07/21/23 (3 mL) subcutaneous pen (Novolog FlexPen U-100 Insulin aspart) metoprolol tartrate 25 mg tablet 50 mg PO Q12H 12/30/22 08/07/23 rosuvastatin 20 mg tablet 20 mg PO BEDTIME 12/30/22 08/07/23 tizanidine 4 mg tablet 4 mg PO Q8H PRN spasms 12/30/22 08/07/23 trazodone 100 mg tablet 200 mg PO BEDTIME 12/30/22 08/07/23 olanzapine 5 mg tablet 5 mg PO DAILY 01/17/23 08/07/23 duloxetine 60 mg capsule,delayed 60 mg PO BID 07/19/23 08/07/23 release (Cymbalta) dulaglutide 0.75 mg/0.5 mL 0.75 mg subcut QWEEK 07/21/23 08/07/23 subcutaneous pen injector (Trulicity) insulin glargine 100 unit/mL (3 20 unit subcut QPM 07/21/23 08/07/23 mL) subcutaneous pen (Lantus Solostar U-100 Insulin) meclizine 25 mg tablet 25 mg PO TID PRN dizziness 07/21/23 08/07/23 pantoprazole 40 mg tablet,delayed 40 mg PO DAILY 07/21/23 08/07/23 release Previous Rx's Medication Instructions Recorded meclizine 50 mg tablet (Antivert) 50 mg PO BID PRN dizziness #20 tabs 03/01/23 polyethylene glycol 3350 17 gram 17 g PO DAILY 14 days #14 ea 07/19/23 oral powder packet (Miralax) magnesium citrate (Citrate of 296 ml PO DAILY constipation #296 07/21/23 Magnesia oral) mL dicyclomine 20 mg tablet 20 mg PO TID PRN abdominal pain #7 08/07/23 tabs promethazine 25 mg tablet 25 mg PO BID PRN nausea and 08/07/23 vomiting #7 tabs tamsulosin 0.4 mg capsule (Flomax) 0.4 mg PO DAILY 7 days #7 caps 08/07/23 Allergies Allergy/AdvReac Type Severity Reaction Status Date / Time melon Allergy Severe Anaphylaxis Verified 07/19/23 14:43 aspirin Allergy Unknown Verified 07/19/23 14:43 fentanyl Allergy Unknown Verified 07/19/23 14:43 ketorolac [From Toradol] Allergy Unknown Verified 03/28/23 19:28 meperidine [From Demerol] Allergy Unknown Verified 07/19/23 14:43 morphine Allergy Unknown Verified 07/19/23 14:43 nalbuphine [From Nubain] Allergy Unknown Verified 07/19/23 14:43 NSAIDS (Non-Steroidal Allergy Unknown Verified 07/19/23 14:43 Anti-Inflamma Penicillins Allergy Unknown Verified 07/19/23 14:43 PFSH PFSH Social History Smoking status: Never smoker Exam Constitutional Vital Signs, click to edit/add: Last Vital Signs Temp 98.8 F 08/07/23 15:14 Pulse 115 H 08/07/23 15:14 Resp 18 08/07/23 15:14 BP 158/96 H 08/07/23 15:14 Pulse Ox 97 08/07/23 15:14 O2 Del Method Room Air 08/07/23 15:26 Course Vital Signs Vital signs: Vital Signs Temperature 98.8 F 08/07/23 15:14 Pulse Rate 115 H 08/07/23 15:14 Respiratory Rate 18 08/07/23 15:14 Blood Pressure 158/96 H 08/07/23 15:14 Pulse Oximetry 97 08/07/23 15:14 Oxygen Delivery Method Room Air 08/07/23 15:14 Temperature 98.8 F 08/07/23 15:14 Pulse Rate 115 H 08/07/23 15:14 Respiratory Rate 18 08/07/23 15:14 Blood Pressure 158/96 H 08/07/23 15:14 Pulse Oximetry 97 08/07/23 15:14 Oxygen Delivery Method Room Air 08/07/23 15:26 Medical Decision Making MDM Narrative Medical decision making narrative: Patient's KUB shows no acute finding, moderate stool burden. Patient urine shows questionable infection, but there is moderate amount of epithelial cells, urine culture will be done. Patient was initially given the benefit of the doubt, and given 1 dose of IV Dilaudid 1 mg, given IV Compazine, IV fluids. Patient has multiple allergies to Toradol, morphine, Nubain, Demerol, fentanyl. Patient felt better after initial Compazine, Dilaudid and IV fluids, patient is having return of pain. Patient was given injection of Bentyl. Education and using Bentyl, Zofran, and Flomax prophylactically if needed. Patient has been here multiple times for lower back pain, renal colic, and evaluation for kidney stones. Patient has not established local urology, she still sees Dr. Díaz from [place]. Return precautions were discussed at bedside and on discharge paperwork. Patient understands, feels somewhat better with IV fluids. Lab Data Labs: Lab Results 08/07/23 08/07/23 Range/Units 15:22 16:05 WBC 6.6 (4.0-11.0) 10^3/uL RBC 4.58 (4.20-5.40) 10^6/uL Hgb 13.4 (12.0-16.0) g/dL Hct 40.9 (36.0-48.0) % MCV 89.3 (81.0-99.0) fL MCH 29.3 (26.7-34.0) pg MCHC 32.8 (29.9-35.2) g/dL RDW 12.8 (11.0-15.0) % Plt Count 202 (150-450) 10^3/uL MPV 8.6 L (9.5-13.5) fL Neut % (Auto) 57.8 (43.0-75.0) % Lymph % (Auto) 29.9 (20.5-60.0) % [place] % (Auto) 7.2 (1.7-12.0) % Eos % (Auto) 4.0 (0.9-7.0) % Baso % (Auto) 0.9 (0.2-2.0) % Neut # (Auto) 3.8 (1.4-6.5) 10^3/uL Lymph # (Auto) 2.0 (1.2-3.8) 10^3/uL [place] # (Auto) 0.5 (0.3-0.8) 10^3/uL Eos # (Auto) 0.3 (0.0-0.7) 10^3/uL Baso # (Auto) 0.1 (0.0-0.1) 10^3/uL Abs Immat Gran (auto) 0.01 (0.00-0.03) 10^3/uL Imm/Tot Granulo (auto) 0.2 (0.0-0.5) % Sodium 144 (136-145) mmol/L Potassium 3.7 (3.5-5.1) mmol/L Chloride 105 (98-107) mmol/L Carbon Dioxide 30.4 (21.0-32.0) mmol/L Anion Gap 12.3 BUN 14.0 (7.0-18.0) mg/dL Creatinine 0.69 (0.55-1.02) mg/dL Est GFR ( Amer) >60 (>=60) Est GFR (Non-Af Amer) >60 (>=60) BUN/Creatinine Ratio 20.3 Glucose 117 H (74-106) mg/dL Lactate 1.4 (0.4-2.0) mmol/L Calcium 8.9 (8.5-10.1) mg/dL Total Bilirubin 0.2 (0.2-1.0) mg/dL AST 16 (15-37) U/L ALT 37 (14-59) U/L Alkaline Phosphatase 93 (46-116) U/L Total Protein 8.1 (6.4-8.2) g/dL Albumin 3.5 (3.4-5.0) g/dL Globulin 4.6 g/dL Albumin/Globulin Ratio 0.8 Urine Color Lt. yellow (YELLOW) Urine Clarity Clear (CLEAR) Urine pH 7.0 (5.0-9.0) Ur Specific [place] 1.020 (1.005-1.025) Urine Protein Negative (NEG/TRACE) mg/dL Urine Glucose (UA) 100 A (NEGATIVE) mg/dL Urine Ketones Negative (NEGATIVE) mg/dL Urine Occult Blood Negative (NEGATIVE) Urine Nitrite Negative (NEGATIVE) Urine Bilirubin Negative (NEGATIVE) Urine Urobilinogen 0.2 (0.2-1.0) EU/dL Ur Leukocyte Esterase Moderate A (NEGATIVE) Urine RBC 0-2 (0-2) #/HPF Urine WBC 5-10 A (NONE SEEN) #/HPF Ur Squamous Epith Cells Moderate A (NONE/RARE) #/LPF Urine Crystals None seen (None Seen) #/HPF Urine Bacteria None seen (NONE SEEN) #/HPF Urine Casts None seen (NONE SEEN) #/LPF Urine Mucus None seen (NONE SEEN) Discharge Plan Discharge Chief Complaint: Abdominal Pain Clinical Impression: Nausea & vomiting, Renal colic on right side, Abdominal pain Patient Disposition: Home, Self-Care Time of Disposition Decision: 17:10 Condition: Fair Prescriptions / Home Meds: New tamsulosin [Flomax] 0.4 mg capsule 0.4 mg PO DAILY 7 Days Qty: 7 0RF dicyclomine 20 mg tablet 20 mg PO TID PRN (Reason: abdominal pain) Qty: 7 0RF promethazine 25 mg tablet 25 mg PO BID PRN (Reason: nausea and vomiting) Qty: 7 0RF No Action olanzapine 5 mg tablet 5 mg PO DAILY Rx Instructions: HS duloxetine [Cymbalta] 60 mg capsule,delayed release(DR/EC) 60 mg PO BID polyethylene glycol 3350 [Miralax] 17 gram powder in packet 17 g PO DAILY 14 Days Qty: 14 0RF Trulicity 0.75 mg/0.5 mL pen injector 0.75 mg SUBCUT QWEEK insulin glargine [Lantus Solostar U-100 Insulin] 100 unit/mL (3 mL) insulin pen 20 unit SUBCUT QPM meclizine 25 mg tablet 25 mg PO TID PRN (Reason: dizziness) pantoprazole 40 mg tablet,delayed release (DR/EC) 40 mg PO DAILY magnesium citrate [Citrate of Magnesia] Solution 296 ml PO DAILY Qty: 296 0RF Rx Instructions: Take half of the bottle with 8 oz of water, take the other half after 1 hour with 8 oz of water gabapentin 600 mg tablet 600 mg PO Q8H insulin aspart U-100 [Novolog FlexPen U-100 Insulin] 100 unit/mL (3 mL) insulin pen 20 unit SUBCUT TID Patient Comments: plus sliding scale metoprolol tartrate 25 mg tablet 50 mg PO Q12H rosuvastatin 20 mg tablet 20 mg PO BEDTIME tizanidine 4 mg tablet 4 mg PO Q8H PRN (Reason: spasms) trazodone 100 mg tablet 200 mg PO BEDTIME meclizine [Antivert] 50 mg tablet 50 mg PO BID PRN (Reason: dizziness) Qty: 20 0RF Instructions: Constipation (ED), Renal Colic (ED), Acute Nausea and Vomiting (ED), Acute Abdominal Pain (ED), Abdominal Pain (ED) Additional Instructions: Increase fluids at home, use Bentyl as needed for abdominal cramping. Use Phenergan suppositories as needed to help with nausea and vomiting Follow-up with Dr. Díaz urologist if any other additional needs or concerns. If you believe you are having renal colic secondary to kidney stones in the future, Flomax has been prescribed to help prophylactically. Stand Alone Forms: Portal Instructions Referrals: Physician,Non-Staff, [Primary Care Provider] - 1 week Joseluis Adams MD [Physician] - 1 week
[2023-08-07] MEDS: DICYCLOMINE HCL 20 MG/2 ML VIAL IM (17:19)
== END 2023-08-07 17:30 | disposition home or self-care (01) ==
PROVIDERS: Emergency Provider Emergency Medicine
DX: R11.2 Nausea with vomiting, unspecified (principal); N23 Unspecified renal colic; Z87.442 Personal history of urinary calculi; Z90.710 Acquired absence of both cervix and uterus; Z90.722 Acquired absence of ovaries, bilateral; Z79.899 Other long term (current) drug therapy; Z79.4 Long term (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 of insulin
CPT/HCPCS: 36415; 74018; 80053; 81001; 83605; 85025; 87086; 87150; 87186; 96361; 96372; 96374; 96375; 99285; J0500; J0780; J1170

== ENCOUNTER 2023-08-13 22:39 | Emergency (ER) | payer OTHER, SELFPAY ==
[2023-08-13 22:47] VITALS: BP 102/66; PULSE 107; RESP 20; TEMP 36.8; O2SAT 95; BMI 43.9
--- NOTE | 2023-08-13 23:17 | CT_ITS ---
The [address] [address] Patient Name: GISEL PAT MRN: [id number] date: 1975 Sex: F Assigned Patient Location: ER Current Patient Location: ER Accession/Order Number: [id number] Exam Date: 08/13/2023 23:46 Report Date: 08/14/2023 00:17 At the request of: NOVA MARKER Procedure: CT abdomen pelvis wo con EXAM: CT abdomen pelvis wo con HISTORY: Right lower quadrant abdominal pain, right-sided abdominal pain. COMPARISON: Multiple priors, most recent CT abdomen pelvis 07/21/2023 TECHNIQUE: Multiple axial views CT abdomen pelvis without IV contrast. Coronal sagittal reformats. FINDINGS: Visualized lung bases demonstrate mild linear lung atelectasis. Visualized cardiac apex is unremarkable. Status post cholecystectomy. Liver, pancreas, spleen, adrenal glands, left kidney, underdistended urinary bladder, and appendix are unremarkable by noncontrast exam. Uterus is surgically absent. A 3 mm nonobstructing right superior renal stone. No radiopaque ureteral/urinary bladder stone, hydronephrosis, or perinephric fluid collection. Scattered mild colonic diverticula without pericolonic inflammatory stranding. Large amount of stool within the right colon particularly at the cecum. Small hiatal hernia. Stomach is underdistended. No perigastric extraluminal free fluid/free air. No evidence for small bowel obstruction, pneumatosis, pneumoperitoneum, or large ascites. The retroperitoneal vasculature is unremarkable by noncontrast exam. Small bilateral right fat containing indirect inguinal hernia without bowel protrusion. No acute bony abnormality. CT/CT abdomen pelvis wo con IMPRESSION: No evidence for acute appendicitis. The appendix is unremarkable. A 3 mm nonobstructing right superior renal stone. No radiopaque ureteral/urinary bladder stone, hydronephrosis, or perinephric fluid collection. Scattered mild colonic diverticula without pericolonic inflammatory stranding. Large amount of stool within the right colon particularly at the cecum. Small hiatal hernia. Electronically authenticated by: NAREN TSE Date: 08/14/2023 00:17
[2023-08-13 23:32] LABS: Basophils Absolute Auto 0.1 10^3/uL (0.0-0.1); Basophils Percent Auto 1.3 % (0.2-2.0); Eosinophils Absolute Auto 0.3 10^3/uL (0.0-0.7); Hematocrit 38.1 % (36.0-48.0); Hemoglobin 12.2 g/dL (12.0-16.0); Immature Granulocytes Abs Auto 0.02 10^3/uL (0.00-0.03); Immature Granulocytes Pct Auto 0.3 % (0.0-0.5); Lymphocytes Absolute Auto 2.4 10^3/uL (1.2-3.8); Lymphocytes Percent Auto 37.5 % (20.5-60.0); Mean Corpuscular Hemoglobin 29.1 pg (26.7-34.0); Mean Corpuscular Volume 90.9 fL (81.0-99.0); Mean Platelet Volume 8.7 fL (9.5-13.5); Monocytes Absolute Auto 0.6 10^3/uL (0.3-0.8); Monocytes Percent Auto 8.6 % (1.7-12.0); Neutrophils Percent Auto 47.3 % (43.0-75.0); Platelet Count 209 10^3/uL (150-450); Red Blood Count 4.19 10^6/uL (4.20-5.40); Red Cell Distribution Width 13.1 % (11.0-15.0); White Blood Count 6.4 10^3/uL (4.0-11.0)
[2023-08-13] MEDS: 0.9 % SODIUM CHLORIDE 1,000 ML 1000 ML IV (23:32)
[2023-08-13] MEDS: ONDANSETRON PF 4 MG/2 ML VIAL IV (23:33)
[2023-08-13] MEDS: OXYCODONE HCL/ACETAMINOPHEN 5MG/325MG 1 TAB PO (23:33)
[2023-08-13 23:49] LABS: Alanine Aminotransferase 22 U/L (14-59); Albumin Globulin Ratio 0.8; Albumin Level 3.2 g/dL (3.4-5.0); Alkaline Phosphatase 82 U/L (46-116); Aspartate Amino Transferase 16 U/L (15-37); Bilirubin Total 0.2 mg/dL (0.2-1.0); Calcium 8.7 mg/dL (8.5-10.1); Carbon Dioxide 26.2 mmol/L (21.0-32.0); Chloride 106 mmol/L (98-107); Estimated GFR (African America >60 (>=60); Estimated GFR (Non-African Ame >60 (>=60); Globulin 4.1 g/dL; Glucose 170 mg/dL (74-106); Potassium 4.2 mmol/L (3.5-5.1); Sodium 142 mmol/L (136-145); Total Protein 7.3 g/dL (6.4-8.2)
[2023-08-13 23:52] LABS: Lactate/Lactic Acid 1.8 mmol/L (0.4-2.0)
--- NOTE | 2023-08-14 00:04 | PC.NURSE ---
patient called out stating she is in a lot of pain, physician aware
[2023-08-14] MEDS: HYDROMORPHONE HCL 1 MG/ML CARTRIDGE IV (00:29)
[2023-08-14 01:01] LABS: Bilirubin Urine NEGATIVE (NEGATIVE); Blood Urine NEGATIVE (NEGATIVE); Clarity Urine CLEAR (CLEAR); Color Urine YELLOW (YELLOW); Glucose Urine UA NEGATIVE (NEGATIVE); Ketones Urine TRACE mg/dL (NEGATIVE); Leukocyte Esterase Urine SMALL (NEGATIVE); Nitrite Urine NEGATIVE (NEGATIVE); Protein Urine NEGATIVE (NEG/TRACE); Specific Gravity Urine >=1.030 (1.005-1.025); Urobilinogen Urine 0.2 EU/dL (0.2-1.0); pH Urine 5.5 (5.0-9.0)
[2023-08-14 01:14] LABS: Bacteria Urine SMALL #/HPF (NONE SEEN); Mucus Urine NONE SEEN (NONE SEEN); RBC Urine 0-2 #/HPF (0-2); Squamous Epithelial Cell Urine FEW #/LPF (NONE/RARE)
[2023-08-14 01:15] LABS: Cast Seen? NONE SEEN #/LPF (NONE SEEN); Crystals Seen? None Seen #/HPF (None Seen)
[2023-08-14 01:49] VITALS: BP 110/70; PULSE 70; RESP 18; O2SAT 95
--- NOTE | 2023-08-14 04:33 | ED_ITS ---
HPI - Abdominal Pain General Chief Complaint: Abdominal Pain Stated Complaint: Abdominal Pain Time Seen by Provider: 08/13/23 22:45 Source: patient Mode of arrival: walk-in Limitations: no limitations History of Present Illness HPI narrative: This 48-year-old female who is well-known to this emergency department and this provider presents for evaluation of right lower quadrant abdominal pain with nausea. She does have a history of kidney stones. She was seen recently in this emergency department and diagnosed with constipation and urinary tract infection. She did not fill her prescriptions for antibiotics. She denies any dysuria or hematuria. She has not had a fever. She has not had any chest pain or shortness of breath. She has multiple drug ALLERGIES and allegedly can only take Dilaudid and oral narcotics. She has been on multiple GLP 1 medications for weight loss and although she states that she has lost 30 pounds, the side effects of the medications have been difficult for her to tolerate. Related Data Home Medications Medication Instructions Recorded Confirmed gabapentin 600 mg tablet 600 mg PO Q8H 12/30/22 08/13/23 insulin aspart U-100 100 unit/mL 35 unit subcut TID 12/30/22 08/13/23 (3 mL) subcutaneous pen (Novolog FlexPen U-100 Insulin aspart) metoprolol tartrate 25 mg tablet 50 mg PO Q12H 12/30/22 08/13/23 rosuvastatin 20 mg tablet 20 mg PO BEDTIME 12/30/22 08/13/23 tizanidine 4 mg tablet 4 mg PO Q8H PRN spasms 12/30/22 08/13/23 trazodone 100 mg tablet 200 mg PO BEDTIME 12/30/22 08/13/23 olanzapine 5 mg tablet 5 mg PO DAILY 01/17/23 08/13/23 duloxetine 60 mg capsule,delayed 60 mg PO BID 07/19/23 08/13/23 release (Cymbalta) dulaglutide 0.75 mg/0.5 mL 0.75 mg subcut .2 times week 07/21/23 08/13/23 subcutaneous pen injector (Trulicvenessa) insulin glargine 100 unit/mL (3 20 unit subcut QPM 07/21/23 08/13/23 mL) subcutaneous pen (Lantus Solostar U-100 Insulin) meclizine 25 mg tablet 25 mg PO TID PRN dizziness 07/21/23 08/13/23 pantoprazole 40 mg tablet,delayed 40 mg PO DAILY 07/21/23 08/13/23 release albuterol sulfate 90 mcg/actuation inhalation 08/13/23 aerosol inhaler aripiprazole 20 mg tablet mg 08/13/23 buspirone 15 mg tablet mg 08/13/23 celecoxib 200 mg capsule mg 08/13/23 hydroxyzine pamoate 50 mg capsule mg 08/13/23 ibuprofen 800 mg tablet mg 08/13/23 levofloxacin 500 mg tablet mg 08/13/23 lidocaine 5 % topical patch patch 08/13/23 Previous Rx's Medication Instructions Recorded meclizine 50 mg tablet (Antivert) 50 mg PO BID PRN dizziness #20 tabs 03/01/23 polyethylene glycol 3350 17 gram 17 g PO DAILY 14 days #14 ea 07/19/23 oral powder packet (Miralax) promethazine 25 mg tablet 25 mg PO BID PRN nausea and 08/07/23 vomiting #7 tabs Allergies Allergy/AdvReac Type Severity Reaction Status Date / Time melon Allergy Severe Anaphylaxis Verified 08/13/23 22:47 aspirin Allergy Unknown Verified 08/13/23 22:47 fentanyl Allergy Unknown Verified 08/13/23 22:47 ketorolac [From Toradol] Allergy Unknown Verified 08/13/23 22:47 meperidine [From Demerol] Allergy Unknown Verified 08/13/23 22:47 morphine Allergy Unknown Verified 08/13/23 22:47 nalbuphine [From Nubain] Allergy Unknown Verified 08/13/23 22:47 Penicillins Allergy Unknown Verified 08/13/23 22:47 Review of Systems ROS Status of ROS 10 or more systems reviewed and unremark able except as noted in history and below PFSH [facility] Social History Smoking status: Never smoker Exam Narrative Exam Narrative: Nurses note and vital signs reviewed and patient is not hypoxic. General: Nontoxic overweight female resting comfortably on the stretcher, no respiratory distress Skin: Warm, dry, no pallor noted. There is no rash noted. Head: Normocephalic, atraumatic Eye: Normal conjunctiva, no drainage, EOMI. PERRL. No scleral icterus Ears, Nose, Mouth, and Throat: oral mucosa is moist. Cardiovascular: Regular Rate and Rhythm Respiratory: Patient is in no distress, no accessory muscle use, lungs are clear to auscultation, no wheezing, rales or rhonchi Back: non-tender, no CVA tenderness bilaterally to percussion. GI: Obese, soft, nondistended, no rebound guarding rigidity appreciated, mild fullness and tenderness in the right lower quadrant- the exact area is difficult to define due to her habitus Musculoskeletal: The patient has no evidence of calf tenderness, no pitting edema, symmetrical pulses noted bilaterally Neurological: A&O x4, normal speech Psychiatric: Cooperative Constitutional Vital Signs, click to edit/add: Last Vital Signs Temp 98.3 F 08/13/23 22:47 Pulse 70 08/14/23 01:49 Resp 18 08/14/23 01:49 BP 110/70 08/14/23 01:49 Pulse Ox 95 08/14/23 01:49 O2 Del Method Room Air 08/14/23 01:49 Course Vital Signs Vital signs: Vital Signs Temperature 98.3 F 08/13/23 22:47 Pulse Rate 107 H 08/13/23 22:47 Respiratory Rate 20 08/13/23 22:47 Blood Pressure 102/66 08/13/23 22:47 Pulse Oximetry 95 08/13/23 22:47 Oxygen Delivery Method Room Air 08/13/23 22:47 Temperature 98.3 F 08/13/23 22:47 Pulse Rate 70 08/14/23 01:49 Respiratory Rate 18 08/14/23 01:49 Blood Pressure 110/70 08/14/23 01:49 Pulse Oximetry 95 08/14/23 01:49 Oxygen Delivery Method Room Air 08/14/23 01:49 MDM - Abdominal Pain MDM Narrative Medical decision making narrative: This 48-year-old female with multiple medical problems presents for evaluation of ongoing right lower quadrant abdominal pain. She was recently seen in this emergency department and diagnosed with constipation and urinary tract infection. She did not fill the prescription for the antibiotics. She is mildly tender in the right lower quadrant. She is morbidly obese but has lost 30 pounds on diabetic medications.She states that after being dosed with constipation she completed a course of MiraLAX. Routine labs are ordered and are reviewed and are normal. I was able to get a small IV in her left hand and she was medicated with IV fluids a Percocet and Zofran. She complained of severe pain after this and was given one dose of IV Dilaudid. This controlled her pain. She has normal labs. Urine does not appear to be particularly infected. This is likely not the etiology of her pain. CT scan of abdomen and pelvis without IV contrast was ordered and shows a large burden of stool in the right lower quadrant. This was discussed with the patient. She will be discharged home with prescription for Zofran and Colace. Medical Records Medical records narrative: [place] [address] CT Scan Report Signed Patient: GISEL PAT MR#: [id number] : 1975 Acct:[id number] Age/Sex: 48 / F ADM Date: 08/13/23 Loc: ER Attending Dr: Ordering Physician: Grace Servin Date of Service: 08/13/23 Procedure(s): CT abdomen pelvis wo con Accession Number(s): [id number] cc: Physician,Non-Staff M.D.~ [facility] [place] [address] Patient Name: GISEL PAT MRN: [id number] date: 1975 Sex: F Assigned Patient Location: ER Current Patient Location: ER Accession/Order Number: [id number] Exam Date: 08/13/2023 23:46 Report Date: 08/14/2023 00:17 At the request of: GRACE SERVIN Procedure: CT abdomen pelvis wo con EXAM: CT abdomen pelvis wo con HISTORY: Right lower quadrant abdominal pain, right-sided abdominal pain. COMPARISON: Multiple priors, most recent CT abdomen pelvis 07/21/2023 TECHNIQUE: Multiple axial views CT abdomen pelvis without IV contrast. Coronal sagittal reformats. FINDINGS: Visualized lung bases demonstrate mild linear lung atelectasis. Visualized cardiac apex is unremarkable. Status post cholecystectomy. Liver, pancreas, spleen, adrenal glands, left kidney, underdistended urinary bladder, and appendix are unremarkable by noncontrast exam. Uterus is surgically absent. A 3 mm nonobstructing right superior renal stone. No radiopaque ureteral/urinary bladder stone, hydronephrosis, or perinephric fluid collection. Scattered mild colonic diverticula without pericolonic inflammatory stranding. Large amount of stool within the right colon particularly at the cecum. Small hiatal hernia. Stomach is underdistended. No perigastric extraluminal free fluid/free air. No evidence for small bowel obstruction, pneumatosis, pneumoperitoneum, or large ascites. The retroperitoneal vasculature is unremarkable by noncontrast exam. Small bilateral right fat containing indirect inguinal hernia without bowel protrusion. No acute bony abnormality. CT/CT abdomen pelvis wo con IMPRESSION: No evidence for acute appendicitis. The appendix is unremarkable. A 3 mm nonobstructing right superior renal stone. No radiopaque ureteral/urinary bladder stone, hydronephrosis, or perinephric fluid collection. Scattered mild colonic diverticula without pericolonic inflammatory stranding. Large amount of stool within the right colon particularly at the cecum. Small hiatal hernia. Electronically authenticated by: NAREN TSE Date: 08/14/2023 00:1 Lab Data Attestation: I reviewed the patient's lab results. Labs: Lab Results 08/13/23 08/13/23 Range/Units 00:34 23:27 WBC 6.4 (4.0-11.0) 10^3/uL RBC 4.19 L (4.20-5.40) 10^6/uL Hgb 12.2 (12.0-16.0) g/dL Hct 38.1 (36.0-48.0) % MCV 90.9 (81.0-99.0) fL MCH 29.1 (26.7-34.0) pg MCHC 32.0 (29.9-35.2) g/dL RDW 13.1 (11.0-15.0) % Plt Count 209 (150-450) 10^3/uL MPV 8.7 L (9.5-13.5) fL Neut % (Auto) 47.3 (43.0-75.0) % Lymph % (Auto) 37.5 (20.5-60.0) % [place] % (Auto) 8.6 (1.7-12.0) % Eos % (Auto) 5.0 (0.9-7.0) % Baso % (Auto) 1.3 (0.2-2.0) % Neut # (Auto) 3.0 (1.4-6.5) 10^3/uL Lymph # (Auto) 2.4 (1.2-3.8) 10^3/uL [place] # (Auto) 0.6 (0.3-0.8) 10^3/uL Eos # (Auto) 0.3 (0.0-0.7) 10^3/uL Baso # (Auto) 0.1 (0.0-0.1) 10^3/uL Abs Immat Gran (auto) 0.02 (0.00-0.03) 10^3/uL Imm/Tot Granulo (auto) 0.3 (0.0-0.5) % Sodium 142 (136-145) mmol/L Potassium 4.2 (3.5-5.1) mmol/L Chloride 106 (98-107) mmol/L Carbon Dioxide 26.2 (21.0-32.0) mmol/L Anion Gap 14.0 BUN 16.0 (7.0-18.0) mg/dL Creatinine 0.80 (0.55-1.02) mg/dL Est GFR ( Amer) >60 (>=60) Est GFR (Non-Af Amer) >60 (>=60) BUN/Creatinine Ratio 20.0 Glucose 170 H (74-106) mg/dL Lactate 1.8 (0.4-2.0) mmol/L Calcium 8.7 (8.5-10.1) mg/dL Total Bilirubin 0.2 (0.2-1.0) mg/dL AST 16 (15-37) U/L ALT 22 (14-59) U/L Alkaline Phosphatase 82 (46-116) U/L Total Protein 7.3 (6.4-8.2) g/dL Albumin 3.2 L (3.4-5.0) g/dL Globulin 4.1 g/dL Albumin/Globulin Ratio 0.8 Urine Color Yellow (YELLOW) Urine Clarity Clear (CLEAR) Urine pH 5.5 (5.0-9.0) Ur Specific [place] >=1.030 A (1.005-1.025) Urine Protein Negative (NEG/TRACE) mg/dL Urine Glucose (UA) Negative (NEGATIVE) mg/dL Urine Ketones Trace A (NEGATIVE) mg/dL Urine Occult Blood Negative (NEGATIVE) Urine Nitrite Negative (NEGATIVE) Urine Bilirubin Negative (NEGATIVE) Urine Urobilinogen 0.2 (0.2-1.0) EU/dL Ur Leukocyte Esterase Small A (NEGATIVE) Urine RBC 0-2 (0-2) #/HPF Urine WBC 2-5 A (NONE SEEN) #/HPF Ur Squamous Epith Cells Few A (NONE/RARE) #/LPF Urine Crystals None seen (None Seen) #/HPF Urine Bacteria Small A (NONE SEEN) #/HPF Urine Casts None seen (NONE SEEN) #/LPF Urine Mucus None seen (NONE SEEN) Discharge Plan Discharge Chief Complaint: Abdominal Pain Clinical Impression: Recurrent abdominal pain, Constipation Patient Disposition: Home, Self-Care Time of Disposition Decision: 01:42 Condition: Good Mode of Transportation: Private Vehicle Prescriptions / Home Meds: No Action olanzapine 5 mg tablet 5 mg PO DAILY Rx Instructions: HS duloxetine [Cymbalta] 60 mg capsule,delayed release(DR/EC) 60 mg PO BID polyethylene glycol 3350 [Miralax] 17 gram powder in packet 17 g PO DAILY 14 Days Qty: 14 0RF Trulicity 0.75 mg/0.5 mL pen injector 0.75 mg SUBCUT .2 times week insulin glargine [Lantus Solostar U-100 Insulin] 100 unit/mL (3 mL) insulin pen 20 unit SUBCUT QPM meclizine 25 mg tablet 25 mg PO TID PRN (Reason: dizziness) pantoprazole 40 mg tablet,delayed release (DR/EC) 40 mg PO DAILY promethazine 25 mg tablet 25 mg PO BID PRN (Reason: nausea and vomiting) Qty: 7 0RF celecoxib 200 mg capsule ibuprofen 800 mg tablet hydroxyzine pamoate 50 mg capsule lidocaine 5 % adhesive patch,medicated levofloxacin 500 mg tablet albuterol sulfate 90 mcg/actuation HFA aerosol inhaler INHALATION buspirone 15 mg tablet aripiprazole 20 mg tablet gabapentin 600 mg tablet 600 mg PO Q8H insulin aspart U-100 [Novolog FlexPen U-100 Insulin] 100 unit/mL (3 mL) insulin pen 35 unit SUBCUT TID Patient Comments: plus sliding scale metoprolol tartrate 25 mg tablet 50 mg PO Q12H rosuvastatin 20 mg tablet 20 mg PO BEDTIME tizanidine 4 mg tablet 4 mg PO Q8H PRN (Reason: spasms) trazodone 100 mg tablet 200 mg PO BEDTIME meclizine [Antivert] 50 mg tablet 50 mg PO BID PRN (Reason: dizziness) Qty: 20 0RF Instructions: Constipation (DC), High Fiber Diet (ED), Abdominal Pain (ED) Stand Alone Forms: Portal Instructions Referrals: Physician,Non-Staff, MD [Primary Care Provider] - 1 week Discharge Date/Time: 08/14/23 01:50
== END 2023-08-14 01:50 | disposition home or self-care (01) ==
PROVIDERS: Emergency Provider Emergency Medicine
DX: R10.9 Unspecified abdominal pain (principal); K59.00 Constipation, unspecified; Z79.899 Other long term (current) drug therapy; Z79.4 Long term (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 of insulin; Z90.49 Acquired absence of other specified parts of digestive tract
CPT/HCPCS: 36415; 74176; 80053; 81001; 83605; 85025; 96374; 96375; 99284; J1170; J2405

== ENCOUNTER 2023-08-19 11:30 | Emergency (ER) | payer OTHER, SELFPAY ==
[2023-08-19 11:43] VITALS: BP 171/107; PULSE 130; RESP 20; TEMP 37.1; O2SAT 96; BMI 42.3
--- NOTE | 2023-08-19 12:04 | ECG_ITS ---
The [facility] Test Date: 2023-08-19 Pat Name: GISEL PAT Department: Room: - Gender: Female Permit Coordinator: : 1975 Requested By: 1030 Order Number: [id number] Reading MD: KIMMY JAIME Measurements Intervals [place] Rate: 123 P: 54 UT: 132 QRS: -9 QRSD: 86 T: 61 QT: 334 QTc: 407 Interpretive Statements 1120 Sinus tachycardia 9140 abnormal rhythm ECG Compared to ECG 07/21/2023 19:48:25 Sinus rhythm no longer present Electronically Signed On 08-19-2023 22:46:32 EST by KIMMY JAIME
[2023-08-19 12:13] VITALS: PULSE 130
[2023-08-19 12:22] VITALS: BP 133/102
[2023-08-19 12:22] LABS: Bilirubin Urine NEGATIVE (NEGATIVE); Blood Urine LARGE (NEGATIVE); Clarity Urine CLEAR (CLEAR); Color Urine LT. YELLOW (YELLOW); Glucose Urine UA >=1000 mg/dL (NEGATIVE); Ketones Urine NEGATIVE (NEGATIVE); Leukocyte Esterase Urine NEGATIVE (NEGATIVE); Nitrite Urine NEGATIVE (NEGATIVE); Protein Urine NEGATIVE (NEG/TRACE); Specific Gravity Urine 1.025 (1.005-1.025); Urobilinogen Urine 0.2 EU/dL (0.2-1.0); pH Urine 5.5 (5.0-9.0)
[2023-08-19 12:23] LABS: Basophils Absolute Auto 0.1 10^3/uL (0.0-0.1); Basophils Percent Auto 0.9 % (0.2-2.0); Eosinophils Absolute Auto 0.2 10^3/uL (0.0-0.7); Eosinophils Percent Auto 2.9 % (0.9-7.0); Hematocrit 38.9 % (36.0-48.0); Hemoglobin 12.7 g/dL (12.0-16.0); Immature Granulocytes Abs Auto 0.02 10^3/uL (0.00-0.03); Immature Granulocytes Pct Auto 0.3 % (0.0-0.5); Lymphocytes Absolute Auto 1.9 10^3/uL (1.2-3.8); Lymphocytes Percent Auto 26.9 % (20.5-60.0); Mean Corpuscular HGB Conc 32.6 g/dL (29.9-35.2); Mean Corpuscular Hemoglobin 29.1 pg (26.7-34.0); Mean Corpuscular Volume 89.2 fL (81.0-99.0); Mean Platelet Volume 8.8 fL (9.5-13.5); Monocytes Absolute Auto 0.5 10^3/uL (0.3-0.8); Monocytes Percent Auto 7.2 % (1.7-12.0); Neutrophils Absolute Auto 4.3 10^3/uL (1.4-6.5); Neutrophils Percent Auto 61.8 % (43.0-75.0); Platelet Count 204 10^3/uL (150-450); Red Blood Count 4.36 10^6/uL (4.20-5.40)
--- NOTE | 2023-08-19 12:24 | ED_ITS ---
HPI - Back Pain/Injury General Chief Complaint: Chest Pain Stated Complaint: BACK & CHEST PAIN Time Seen by Provider: 08/19/23 11:35 Source: patient Mode of arrival: walk-in Limitations: no limitations History of Present Illness HPI Narrative: 48-year-old female presented for right flank pain. She states it started during the middle of the night. She thinks it might be a kidney stone. She states that she felt like her heart was racing and her chest was hurting as well. No injury. In reviewing her electronic health record she was here 6 days ago and was diagnosed with constipation and she had a CAT scan at that time. Related Data Home Medications Medication Instructions Recorded Confirmed gabapentin 600 mg tablet 600 mg PO Q8H 12/30/22 08/13/23 insulin aspart U-100 100 unit/mL 35 unit subcut TID 12/30/22 08/13/23 (3 mL) subcutaneous pen (Novolog FlexPen U-100 Insulin aspart) metoprolol tartrate 25 mg tablet 50 mg PO Q12H 12/30/22 08/13/23 rosuvastatin 20 mg tablet 20 mg PO BEDTIME 12/30/22 08/13/23 tizanidine 4 mg tablet 4 mg PO Q8H PRN spasms 12/30/22 08/13/23 trazodone 100 mg tablet 200 mg PO BEDTIME 12/30/22 08/13/23 olanzapine 5 mg tablet 5 mg PO DAILY 01/17/23 08/13/23 duloxetine 60 mg capsule,delayed 60 mg PO BID 07/19/23 08/13/23 release (Cymbalta) dulaglutide 0.75 mg/0.5 mL 0.75 mg subcut .2 times week 07/21/23 08/13/23 subcutaneous pen injector (Trulicity) insulin glargine 100 unit/mL (3 20 unit subcut QPM 07/21/23 08/13/23 mL) subcutaneous pen (Lantus Solostar U-100 Insulin) meclizine 25 mg tablet 25 mg PO TID PRN dizziness 07/21/23 08/13/23 pantoprazole 40 mg tablet,delayed 40 mg PO DAILY 07/21/23 08/13/23 release albuterol sulfate 90 mcg/actuation inhalation 08/13/23 aerosol inhaler aripiprazole 20 mg tablet mg 08/13/23 buspirone 15 mg tablet mg 08/13/23 celecoxib 200 mg capsule mg 08/13/23 hydroxyzine pamoate 50 mg capsule mg 08/13/23 ibuprofen 800 mg tablet mg 08/13/23 levofloxacin 500 mg tablet mg 08/13/23 lidocaine 5 % topical patch patch 08/13/23 Previous Rx's Medication Instructions Recorded meclizine 50 mg tablet (Antivert) 50 mg PO BID PRN dizziness #20 tabs 03/01/23 polyethylene glycol 3350 17 gram 17 g PO DAILY 14 days #14 ea 07/19/23 oral powder packet (Miralax) promethazine 25 mg tablet 25 mg PO BID PRN nausea and 08/07/23 vomiting #7 tabs Allergies Allergy/AdvReac Type Severity Reaction Status Date / Time melon Allergy Severe Anaphylaxis Verified 08/19/23 11:57 aspirin Allergy Unknown Verified 08/19/23 11:57 fentanyl Allergy Unknown Verified 08/19/23 11:57 ketorolac [From Toradol] Allergy Unknown Verified 08/19/23 11:57 meperidine [From Demerol] Allergy Unknown Verified 08/19/23 11:57 morphine Allergy Unknown Verified 08/19/23 11:57 nalbuphine [From Nubain] Allergy Unknown Verified 08/19/23 11:57 Penicillins Allergy Unknown Verified 08/19/23 11:57 Review of Systems ROS Narrative A ten point review of systems is negative except as noted above. [facility] Social History Smoking status: Never smoker Exam Narrative Exam Narrative: Nurses note and vital signs reviewed and patient is not hypoxic. General: The patient appears well and in no apparent distress. Patient is resting comfortably on cart. Skin: Warm, dry, no pallor noted. There is no rash noted. Head: Normocephalic, atraumatic Eye: Normal conjunctiva, no drainage Ears, Nose, Mouth, and Throat: oral mucosa is moist. Nares patent. Cardiovascular: Regular Rate and Rhythm, tachycardia Respiratory: Patient is in no distress, no accessory muscle use, lungs are clear to auscultation, no wheezing, rales or rhonchi Back: non-tender, no CVA tenderness bilaterally to percussion. GI: Soft and nontender Musculoskeletal: The patient has no evidence of calf tenderness, no pitting edema, symmetrical pulses noted bilaterally Neurological: A&O, normal speech Psychiatric: Cooperative Constitutional Vital Signs, click to edit/add: Last Vital Signs Temp 98.7 F 08/19/23 11:43 Pulse 130 H 08/19/23 11:43 Resp 20 08/19/23 11:43 BP 171/107 H 08/19/23 11:43 Pulse Ox 96 08/19/23 11:43 O2 Del Method Room Air 08/19/23 11:43 Course Vital Signs Vital signs: Vital Signs Temperature 98.7 F 08/19/23 11:43 Pulse Rate 130 H 08/19/23 11:43 Respiratory Rate 08/19/23 11:43 Blood Pressure 171/107 H 08/19/23 11:43 Pulse Oximetry 96 08/19/23 11:43 Oxygen Delivery Method Room Air 08/19/23 11:43 Temperature 98.7 F 08/19/23 11:43 Pulse Rate 130 H 08/19/23 11:43 Respiratory Rate 08/19/23 11:43 Blood Pressure 171/107 H 08/19/23 11:43 Pulse Oximetry 96 08/19/23 11:43 Oxygen Delivery Method Room Air 08/19/23 11:43 MDM - Back Pain/Injury MDM Narrative Medical decision making narrative: Test were ordered but the patient refused testing and she has decided to leave AGAINST MEDICAL ADVICE. She had a CAT scan just a few days ago and a repeat CAT scan would not be warranted. She refused other testing as well. She is fully able to make medical decisions for herself and is signing out AGAINST MEDICAL ADVICE Differential Diagnosis Differential diagnosis: Likely other (Flank pain, muscle strain, UTI, kidney stone) Discharge Plan Discharge Chief Complaint: Chest Pain Clinical Impression: Left against medical advice, Right flank pain Patient Disposition: Home, Self-Care Time of Disposition Decision: 12:24 Condition: Good Mode of Transportation: Private Vehicle Prescriptions / Home Meds: No Action olanzapine 5 mg tablet 5 mg PO DAILY Rx Instructions: HS duloxetine [Cymbalta] 60 mg capsule,delayed release(DR/EC) 60 mg PO BID polyethylene glycol 3350 [Miralax] 17 gram powder in packet 17 g PO DAILY 14 Days Qty: 14 0RF Trulicity 0.75 mg/0.5 mL pen injector 0.75 mg SUBCUT .2 times week insulin glargine [Lantus Solostar U-100 Insulin] 100 unit/mL (3 mL) insulin pen 20 unit SUBCUT QPM meclizine 25 mg tablet 25 mg PO TID PRN (Reason: dizziness) pantoprazole 40 mg tablet,delayed release (DR/EC) 40 mg PO DAILY promethazine 25 mg tablet 25 mg PO BID PRN (Reason: nausea and vomiting) Qty: 7 0RF celecoxib 200 mg capsule ibuprofen 800 mg tablet hydroxyzine pamoate 50 mg capsule lidocaine 5 % adhesive patch,medicated levofloxacin 500 mg tablet albuterol sulfate 90 mcg/actuation HFA aerosol inhaler INHALATION buspirone 15 mg tablet aripiprazole 20 mg tablet gabapentin 600 mg tablet 600 mg PO Q8H insulin aspart U-100 [Novolog FlexPen U-100 Insulin] 100 unit/mL (3 mL) insulin pen 35 unit SUBCUT TID Patient Comments: plus sliding scale metoprolol tartrate 25 mg tablet 50 mg PO Q12H rosuvastatin 20 mg tablet 20 mg PO BEDTIME tizanidine 4 mg tablet 4 mg PO Q8H PRN (Reason: spasms) trazodone 100 mg tablet 200 mg PO BEDTIME meclizine [Antivert] 50 mg tablet 50 mg PO BID PRN (Reason: dizziness) Qty: 20 0RF Instructions: Against Medical Advice (ED) Stand Alone Forms: Portal Instructions Referrals: Physician,Non-Staff, MD [Primary Care Provider] - 1 week
[2023-08-19 12:30] LABS: Anion Gap 12.2; BUN Creatinine Ratio 14.4; Carbon Dioxide 26.8 mmol/L (21.0-32.0); Chloride 103 mmol/L (98-107); Estimated GFR (African America >60 (>=60); Estimated GFR (Non-African Ame >60 (>=60); Glucose 358 mg/dL (74-106); Sodium 138 mmol/L (136-145)
[2023-08-19 12:40] LABS: Bacteria Urine NONE SEEN #/HPF (NONE SEEN); Mucus Urine NONE SEEN (NONE SEEN); RBC Urine 50-75 #/HPF (0-2); Squamous Epithelial Cell Urine FEW #/LPF (NONE/RARE); WBC Urine NONE SEEN #/HPF (NONE SEEN)
== END 2023-08-19 12:25 | disposition left against medical advice (07) ==
PROVIDERS: Emergency Provider Emergency Medicine
DX: R10.9 Unspecified abdominal pain (principal); Z53.29 Procedure and treatment not carried out because of patient's decision for other reasons; R07.9 Chest pain, unspecified; Z79.4 Long term (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 of insulin; Z79.899 Other long term (current) drug therapy
CPT/HCPCS: 36415; 80048; 81001; 85025; 93005; 99283

== ENCOUNTER 2023-09-05 21:42 | Emergency (ER) | payer OTHER, SELFPAY ==
[2023-09-05 21:48] VITALS: BP 168/111; PULSE 93; RESP 16; TEMP 36.7; O2SAT 97; BMI 42.3
--- OUTSIDE RECORDS SUMMARY | 2023-09-05 21:58 | XMS_ITS | CCD ---
Author Name Unknown Address [id number] [place] [address] Organization [facility] Care Team Providers Care Rehabilitation Program Coordinator Name Role Phone JONES, SKYE Primary Care Unavailable KARI SINGH Attending Unavailable JONES, SKYE Primary Care Unavailable GRACIELA HUNTER Attending Unavailable CRISTI YUSUF Attending Unavailable JONES, SKYE Primary Care Unavailable Jones, Skye E Primary Care Provider [phone] Jones, Skye E Primary Care Provider Jone [...] Unavailable Jones, Skye E Primary Care Provider [phone] Esmer Hanks MD Unavailable Unavailable Primary Care Provider Unavailabl e Dennis Aceves Unavailable SHAYNA GERARDO Attending Unavailable SHAYNA GERARDO Primary Care Unavailable SHAYNA GERARDO Admitting Unavailable No, Physician Primary Care Provider Unavailabl e TIM ROPER Attending Unavailable NO, PHYSICIAN Primary Care Unavailable STEVEN LAWRENCE Attending Unavailable NO, PHYSICIAN Primary Care Unavailable Rickey Castle Unavailable Unavailable ISIDRA NJ MD Attending Unava ilable NONE, NONE Primary Care Unavailable NATALEE ORGAN PIPE MAKER METAL, RITU Consulting Unavailable ISIDRA NJ MD Admitting Unava ilable NONE, NONE Consulting Unavailable ISIDRA NJ MD Attending Unava ilable Elroy STEEL Consulting Unavailable ISIDRA NJ MD Admitting Unava ilable NONE, NONE Primary Care Unavailable CANDACE YOUNG Consulting Unavailable NONE, NONE Consulting Unavailable ISIDRA NJ MD Admitting Unava ilable NONE, NONE Primary Care Unavailable QUINCY SORIA PA-C Consulting Unavaila ble ISIDRA NJ MD Attending Unava ilable ISIDRA NJ MD Consulting Unava ilable NONE, NONE Consulting Unavailable ISIDRA NJ MD Attending Unava ilable Raul [phone], Juarez [phone] Consul ting Unavailable NONE, NONE Primary Care Unavailable ISIDRA NJ MD Admitting Unava ilable HEYDI IRVIN APRN Consulting Unavaila ble NONE, NONE Consulting Unavailable YANG HATCH, QUINCY CHANG Consulting Unavaila ble NONE, NONE Primary Care Unavailable SHORTY HUDSON DO Admitting Unavailable BECCA DO SHORTY A Attending Unavailable Conrad [id number], Sandi [phone] C onsulting Unavailable NONE, NONE Consulting Unavailable Skye Leroy APRN, CNP Primary Care Provider Karen GLASGOW - Skye NEIL Primary Care Provider DR ESMER CARPENTER Consulting Unavailable [facility] Lee Primary Care Unavailable RAIZA, INIGUEZ Admitting Unavailable RAIZA, INIGUEZ Attending Unavailable DR JONE CAMPOS Consulting Unavailable RAIZA, INIGUEZ Consulting Unavailable Gaby Pfeiffer Consulting Unavailable Skye Jones CNP Primary Care Provider PEE Jones E Primary Care Provider MD Vivek Ceballos Jr Emergency Provider HOLDEN Pyle Emergency Provider SKYE JONES Primary Care Unavailable ESMER ROGERS Attending Unavailable NO, PHYSICIAN Primary Care Unavailable LUIS ANTONIO LORENZANA Attending Unavailab ROSHAN Casper Attending Unava ilable NO, PHYSICIAN Primary Care Unavailable CAROLINE HATCH Attending Unavaila ble RECKO, TODD Primary Care Unavailable PEE Jones E Primary Care Provider DO Gurwinder Philippe Emergency Provider SKYE Kraus Primary Care Physician Hyacinth Cassandra Unavailable PEE Jones E Primary Care Provider DO Yehuda Herrera Emergency Provider [phone] MD Vivek Ceballos Jr Emergency Provider Grace Alfonso Unavailable Unavailable DO Joseluis Vega Emergency Provider [phone] NO, PHYSICIAN Primary Care Unavailable KARI SINGH Admitting Unavailable KARI SINGH Attending Unavailable JAMEEL CADENA Attending Unavailable JONES, SKYE E Primary Care Unavailable ROSHAN ESPINO Admitting Unavailab le RECKO, TODD Primary Care Unavailable CANADIANCYNH HALL Attending Unavailable JONES, SKYE E Primary Care Unavailable TUNDE PONCE Attending Unavailable JONES, SKYE E Primary Care Unavailable CANADIAN, GELACIO HALL Attending Unavailable JONES, SKYE E Primary Care Unavailable CLARA PEREZ Attending Unavail able NO, PHYSICIAN Primary Care Unavailable SCHUYLER CADENA Attending Unavailable Karen, OAKES MACHINE OPERATOR Skye E Primary Care Provider DO Gurwinder Philippe Emergency Provider UnaDO Yehuda Arguello Emergency Provider MD Vivek Ceballos Jr Emergency Provider DO Joseluis Vega Emergency Provider [phone] DO Tristan Pyle Emergency Provider [phone] Ms. Skye Jones Primary Care Unav ailable DO Omi Watkins Attending Provider DO Tim Feng Emergency Provider PEE Jones Primary Care Provider DO Omi Watkins Attending Provider [phone] Skye Leroy APRN, CNP Primary Care Provider Skye Jones Unavailable Sena Ding Unavailable Unavailabl e PEE Jones Primary Care Provider [phone] DO Yehuda Herrera Emergency Provider [phone] DO Omi Watkins Attending Provider MD Vivek Ceballos Jr Emergency Provider Karen, Ms. Skye Alexandra Primary Care Unav ailable Timur, ALBINO Badillo Attending Lesley vailable Karen, Ms. Skye Alexandra Primary Care Unav ailable DO SANDI GATICA Attending Unavailable DO Omi Watkins Attending Provider DO Gurwinder Philippe Emergency Provider UnaDO Omi Cordero Attending Provider PEE Jones Primary Care Provider DO Tim Feng Emergency Provider DO Yehuda Herrera Emergency Provider Unavailab le MD Vivek Ceballos Jr Emergency Provider DO Gurwinder Philippe Emergency Provider DO Omi Sorto Attending Provider [phone] DO Tristan Pyle Emergency Provider HOLDEN West Emergency Provider PEE Jones Primary Care Provider [phone] MD Vivek Ceballos Jr Emergency Provider DO Gurwinder Philippe Emergency Provider DO Omi Sorto Attending Provider [phone] DO Tristan Pyle Emergency Provider [phone] HOLDEN West Emergency Provider MD Harry Sprague Emergency Provider OMI HUNTLEY Attending Unavailabl e SKYE JONES [facility] RobstanBridgett Unavailable Unavailable PEE Jones Primary Care Provider DO Gurwnider Philippe Emergency Provider SheronPEE Romano Emergency Provider DO Allyson Vegarick Jered Emergency Provider [phone] PEE Jones Primary Care Provider PEE Jones E Primary Care Provider [phone] MD Damian Carpenter Emergency Provider MD Yves Dukes Admit Provider MD Yves Dukes Attending Provider SHALOM Arnold Other Provider Unavailable SHALOM Zaman Other Provider Unavailable SHALOM Del Cid Other Provider Unavailable SHALOM Sparrow Other Provider Unavailable SHALOM Flores Other Provider Unavailable SHALOM Cuenca Other Provider Unavailable MD Augusto Batista Other Provider MD Schuyler Fernandez Other Provider PEE Camara Other Provider DO Beto Zuniga Other Provider MD Felipe Mayes Other Provider DO Rocky Uribe Other Provider MD Joe Burr Other Provider MD Ivonne Acosta Other Provider Brandon, ANP-BC Bertha Other Provider MD Nora Ocampo Other Provider [phone] MD Tariq Locke Other Provider MD Silva Villafana Other Provider MD Rehan Maxwell Other Provider DO Harry Chapman Other Provider MD Jessica Saavedra Other Provider MD Sandor Ramos Other Provider QUITA Wells Other Provider MD Miko العلي Other Provider MD Law Melendez Other Provider MD Salvatore Peñaloza Other Provider DO Kristi Craig Other Provider DO Vikash Garcia Other Provider [phone] DO Moises Mendoza Other Provider PEE Petty Other Provider DO Julio C Rajput Other Provider MD Hilaria Escobar Other Provider PEE Carpenter Other Provider [phone] PEE Guerrero Other Provider [phone] MD Evy Brady Other Provider SHALOM Cazares Other Provider Unavailable PEE Jones Primary Care Provider [facility] Tari E Emergency Provider PEE Lowry Emergency Provider [phone] DO Joseluis Vega Emergency Provider MD Damian Carpenter Emergency Provider SHALOM Arnold Other Provider Unavailable SHALOM Zaman Other Provider Unavailable SHALOM Del Cid Other Provider Unavailable SHALOM Sparrow Other Provider Unavailable SHALOM Flores Other Provider Unavailable SHALOM Cuenca Other Provider Unavailable MD Augusto Batista Other Provider MD Schuyler Fernanedz Other Provider Unavailable PEE Camara Anamaria Jered Other Provider DO Beto Zuniga Other Provider MD Felipe Mayes Other Provider DO Rocky Uribe Other Provider MD Joe Burr Other Provider MD Ivonne Acosta Other Provider Brandon, ANP-BC Bertha Other Provider MD Nora Ocampo Other Provider MD Tariq Locke Other Provider MD Silva Villafana Other Provider MD Rehan Maxwell Other Provider DO Harry Chapman Other Provider [phone] MD Jessica Saavedra Other Provider MD Sandor Ramos Other Provider Russell, ORGAN PIPE MAKER METAL-C Juana Greene Other Provider [phone] MD Miko العلي Other Provider MD Law Melendez Other Provider MD Salvatore Peñaloza Other Provider DO Kristi Craig Other Provider DO Vikash Garcia Other Provider DO Moises Mendoza Other Provider PEE Petty Other Provider DO Julio C Rajput Other Provider MD Hilaria Escobar Other Provider PEE Carpenter Other Provider PEE Guerrero Other Provider [phone] MD Evy Brady Other Provider CazaresSHALOM vitale Other Provider Unavailable MD Maxim Pinto Attending Provider [phone] MD Yves Dukes Admit Provider [phone] MD Yves Dukes Attending Provider MD Maxim Pinto Admit Provider MD Omi Watkins Attending Provider MD Antoni Deacon Other Provider MD Fei [place] Other Provider PEE Jones Primary Care Provider MD Vivek Ceballos Jr Emergency Provider Monica Ordaz Unavailable SKYE JONES Primary Care Unavailable ASUNCION URIBE Attending Unavailab SKYE Murray Primary Care Unavailable EVERETT FRANK Attending Unavailable PEE Jones E Primary Care Provider MD Omi Watkins Attending Provider [phone] MD Braulio Dukes Admit Provider MD Maxim Pinto Attending Provider [phone] Sybil Muhammad Attending Unavailable Debbie Doyle Attending Unavailable Indy, Grey S. Attending Unavailable Indy, Grey S. Attending Unavailable Hajdari, Astrit H Attending Unavailable Indy, Grey S. Attending Unavailable Hajdari, Astrit H Attending Unavailable Indy, Grey S. Attending Unavailable Indy, Grey S. Attending Unavailable Indy, Grey S. Attending Unavailable Hajdari, Astrit H Attending Unavailable Indy, Grey S. Attending Unavailable Indy, Grey S. Attending Unavailable Jones Skye WANG CNP E Primary Care Provider PEE Jones E Primary Care Provider [phone] MD Daphnie Gudino Emergency Provider Skye Leroy APRN, CNP E Primary Care Provider RUBEN ABDI Referring Unavailable JONES, SKYE E Primary Care Unavailable RUBEN ABDI Attending Unavailable ARSENIOSERUBEN TALBERT Referring Unavailable JONES, SKYE E Primary Care [...] Unavailable ALEXA SIMS Consulting Unavailable RUBEN ABDI Attending Unavailable JONES, SKYE E Primary Care Unavailable JESUS MIX Consulting Unavailable RUBEN ABID Admitting Unavailable TRENT VELASQUEZ Consulting Unavailable JONES, SKYE E Primary Care Unavailable JONES, SKYE E Referring Unavailable Jones, OAKES MACHINE OPERATOR Skye E Primary Care Provider [phone] MD Braulio Dukes Attending Provider [phone] JONES, SKYE E Primary Care Unavailable REAGAN BHAKTA Attending Unavailable MD Damian Carpenter Emergency Provider [phone] Maxim Pinto Attending Unavailable Maxim Pinto Admitting Unavailable Jones, Skye E Primary Care Unavailable Braulio Dukes Admitting Unavailab Braulio Fenton Attending Unavailab le Jones, Skye E Primary Care Unavailable Maxim Pinto Attending Unavailable Braulio Dukes Admitting Unavailab le Jones, Skye E Primary [...] Ivonne Acosta Consulting Unavailable Bertha Vanessa Consulting Unavailelin e Waslorene, Marwan Consulting Unavailable Zraik, Tariq Consulting Unavailable Ivllafana, Silva Consulting Unavailable Hans, Brittonwan Consulting Unavailable Harry Chapman Consulting Unavailable Jessica Saavedra Consulting Unavailable Sandor Ramos Consulting Unavailable Juana Wells Consulting Unavailable Doamekpor Miko E Consulting Unavailab le Al, Law Consulting Unavailable Deacon Corrales Consulting Unavailable Salvatore Peñaloza Consulting Unavailable Kristi Craig Consulting Unavailable Vikash Garcia Consulting Unavailable Moises Mendoza Consulting Unavailable Lindsey Petty Consulting Unavailable Julio C Rajput Consulting Unavailable Daromar, Dwayneaykrisitnh M Consulting Unavailable Carie Carpenter Consulting Unavailable Gisel Guerrero Consulting Unavailable AlaEvy moore Consulting Unavailable Fei [place] Consulting Unavailable Krystyna Cazares Consulting Unavailable Maxim Pinto Attending Unavailable Roseline, Braulio Admitting Unavailab le Jones, Skye E Primary Care Unavailable Maxim Pinto Attending Unavailable Jones, Skye E Primary Care Unavailable Roseline, Braulio Admitting Unavailab Maxim Bonilla Attending Unavailable Roseline, Braulio Admitting Unavailab le Jones, Skye E Primary Care Unavailable Marylou Arnold Consulting Unavailable Chuyita Zaman Consulting Unavailable Genna Del Cid Consulting Unavailable Deneen Sparrow Consulting Unavailable Keren Flores Consulting Unavailable Yulissa Cuenca Consulting Unavailable Augusto Batista Consulting Unavailable Rebecca, Schuyler K Consulting Unavailable Anamaria Camara Consulting Unavailable Constance Zunigar Consulting Unavailable Sugey, Felipe Consulting Unavailable Taylor Uribeer Consulting UnavailJoe Schwartz Consulting Unavailable Bre Acostaa Consulting Unavailable Bertha Vanessa Consulting Unavailelin e Maegansotomer, Marwan Consulting Unavailable Emilk, Tariq Consulting Unavailable Villafana, Silva Consulting Unavailable aHns, Safwan Consulting Unavailable Harry Chapman Consulting Unavailable Keri, Jessica Consulting Unavailable Sandor Ramos Consulting Unavailable Juana Wells Consulting Unavailable amefredrickor, Miko E Consulting Unavailab le Al, Law Consulting Unavailable Salvatore Peñaloza Consulting Unavailable Kristi Craig Consulting Unavailable Vikash Garcia Consulting Unavailable Moises Mendoza Consulting Unavailable Lindsey Petty Consulting Unavailable Julio C Rajput Consulting Unavailable Hilaria Escobar Consulting Unavailable Carie Carpenter Consulting Unavailable Gisel Guerrero Consulting Unavailable Evy Brady Consulting Unavailable Krystyna Cazares Consulting Unavailable Jones, Skye E Primary Care Unavailable Damian Carpenter Attending Unavailable Damian Carpenter Admitting Unavailable Jones, Skye E Primary Care Unavailable Joseluis Vega Attending Unavailable Joseluis Vega Admitting Unavailable Jones, Skye E Primary Care Unavailable Gurwinder Philippe Attending Unavailable Gurwinder Philippe Admitting Unavailable Jones, Skye E Primary Care Unavailable Omi Watkins Attending Unavailable Omi Watkins Admitting Unavailable Giacomo West Attending Unavailable Jones, Skye E Primary Care Unavailable Giacomo West Admitting Unavailable Braulio Dukes Admitting Unavailab Braulio Fenton Attending Unavailab le Jones, Skye E Primary Care Unavailable Jones, Skye E Primary Care Unavailable Daphnie Gudino Attending Unavailable Daphnie Gudino Admitting Unavailable Maxim Pinto Admitting Unavailable Jones, Skye E Primary Care Unavailable Maxim Pinto Attending Unavailable Harry Sprague Admitting Unavailable Jones, Skye E Primary Care Unavailable Harry Sprague Attending Unavailable Tari Medina Admitting Unavailable Jones, Skye E Primary Care Unavailable Tari Medina Attending Unavailable Eileen Lowry Attending Unavailable Jones, Skye E Primary Care Unavailable Eileen Lowry Admitting Unavailable Jones, Skye E Primary Care Unavailable Joseluis Vega Attending Unavailable Joseluis Vega Admitting Unavailable OMI WATKINS Referring Unavailable OMI WATKINS Attending Unavailable Allergies Allergy Classification Reported Allergen(s) Allergy Type Date of Onset Reaction(s) Facility Aluminum aspirin (3 sources) Aluminum aspirin Drug Allergy 1 [facility] Aspirin (6 sources) Aspirin; Translations: [ASPIRIN] Drug Allergy 1 Other (See Comments), Other: See Comments [facility] Macrolides (antibiotic) (5 sources) Azithromycin Drug Allergy [address] [facility] Nalbuphine (11 sources) Nalbuphine; Translations: [NALBUPHINE] Drug Allergy 2 Hives [facility] NSAIDs (11 sources) Ketorolac; Translations: [KETOROLAC] Drug Allergy 3 [facility], [facility], [facility] Ondansetron (3 sources) Ondansetron; Translations: [ONDANSETRON HCL] Drug Allergy 1 Rash [facility] Opioid Agonists (20 sources) Meperidine; Translations: [MEPERIDINE] Drug Allergy 1 Hives, Rash, [facility]ching [facility] Penicillins (antibiotic) (11 sources) Penicillins; Translations: [PENICILLINS] Drug Allergy 1 Hives, Swelling [facility] Quinolones (antibiotic) (5 sources) Ciprofloxacin Drug Allergy [address] [facility] (20 sources) Aluminum aspirin; Translations: [ASPIRIN] Drug Allergy 1 [place], [place] (20 sources) Azithromycin Drug All[facility] [place] [place] ([facility] sources) fentaNYL; Translations: [FENTANYL] Drug Allergy 7 [facility] [place] [place] ([facility] sources) Ketorolac Drug Allergy 3 Rash [place], [place] (20 sources) Meperidine; Translations: [Demerol] Drug Allergy 1 [place], [place] (20 sources) Morphine; Translations: [MORPHINE] Drug Allergy 6 [place], [place] (20 sources) Nalbuphine; Translations: [nalbuphine] Drug Allergy 2 Hives, Weal (disorder) [place], [place] (20 sources) Penicillins; Translations: [PENICILLINS] Propensity to adverse reactions to drug 1 Swelling, Hives, Weal (disorder) [place], [place] (20 sources) Ciprofloxacin; Translations: [CIPROFLOXACIN] Drug Allergy 0 Rash, [place], [place] (7 sources) Azithromycin; Translations: [Zithromax] Drug Allergy 3 Hives [facility] Work Phone: (6 sources) Ciprofloxacin; Translations: [Cipro] Drug Allergy 0 Hives/Urticari a, Hives [facility] Work Phone: (20 sources) Ketorolac; Translations: [Toradol] Drug Allergy 3 Hives, Weal (disorder) [facility] Repository (1 source) Ketorolac Drug Allergy [facility] Work Phone: (20 sources) Meperidine; Translations: [MEPERIDINE] Drug Allergy 3 Hives, Itching, Weal (disorder) [facility] Work Phone: (1 source) Meperidine Drug Allergy Hives, Itching [facility] Work Phone: (8 sources) Nalbuphine; Translations: [Nubain] Drug Allergy 3 [facility] Repository (6 sources) Penicillins; Translations: [Penicillins] Allergy to drug (finding) Hives [facility] Work Phone: (20 sources) Ketorolac; Translations: [KETOROLAC] Drug Allergy 3 Hives, Itching [facility] (20 sources) Aspirin; Translations: [aspirin] Drug Allergy 1 Other (See Comments) [facility] (3 sources) Ondansetron; Translations: [ONDANSETRON HCL] Drug Allergy 1 Rash [facility] (2 sources) Penicillins Propensity to adverse reactions to drug 1 Hives [facility] (4 sources) Ondansetron Drug Allergy Unknown [facility] (1 source) Aspirin Drug Allergy [facility] Repository (1 source) fentaNYL Drug Allergy [facility] Repository (2 sources) Morphine Drug Allergy [facility] Repository (1 source) Penicillin Drug Allergy [facility] Repository (1 source) Penicillins Drug allergy (disorder) 3 [facility] Repository (4 sources) Ciprofloxacin; Translations: [CIPROFLOXACIN HCL] Drug Allergy 2 [facility] (20 sources) Nalbuphine; Translations: [NALBUPHINE] Drug Allergy 3 [facility] (11 sources) Ondansetron Drug Allergy 2 Rash [facility] (4 sources) Penicillin G Drug Allergy 4 [facility] (8 sources) Penicillins Propensity to adverse reactions to drug 1 Swelling [employer] Work Phone: (8 sources) Melon; Translations: [melon] Allergy to substance 3 Swelling [facility] (1 source) Meperidine; Translations: [Demerol HCl] Drug Allergy [facility] Repository (1 source) Azithromycin Drug Allergy 4 [facility] Repository (1 source) fentaNYL Drug Allergy 4 [facility] Repository (1 source) Ketorolac Drug Allergy 4 [facility] Repository (1 source) Morphine Drug Allergy 4 [facility] Repository (1 source) Penicillin Drug Allergy 4 [facility] Repository (1 source) Penicillins Drug allergy (disorder) 4 [facility] Repository NEGATED: Highlighted row has been ruled out! (2 sources) Other Propensity to adverse reactions 3 Anaphylaxis, Swelling [employer] Medications Current Medications Medication Drug Class(es) Dates [...] 10-28-2022 End: 12-06-2022 Start: 09-08-2022 End: 12-06-2022 take 1 tablet by mouth every six hours Oxycodone-Acetaminophen Discontinued 1 TAB PO Q6H 10 October 28, 2022 December 06, 2022 4:16am Start: 08-25-2022 End: 08-25-2022 oxyCODONE-acetaminophen (PER COCET) 5-325 MG per tablet 1 tablet Start: 08-18-2022 take 1 tablet by svetlana th every eight hours Percocet 5 mg-325 mg oral tablet 1 tab(s), Oral, q8hr, 8 tab(s), Refill(s) 0, [facility] 1429, 170.2, cm, 08/18/22 19:13:00 EST, Height/Length Dosing, 110, kg, 08/18/22 19:13:00 EST, Weight Dosing Start Date: 08/18/22 Status: Ordered Start: 04-25-2022 Percocet 325 m g-5 mg Tab See Instructions, as needed for pain, 40 tab(s), Refill(s) 0, 1-2 tab(s) Oral q4hr, [id number], 170.2, cm, 04/21/22 21:37:00 EDT, Height/Length Dosing, 109, kg, 04/21/22 21:37:00 EDT, Weight Dosing Start Date: 04/25/22 Status: Ordered Start: 04-25-2022 Percocet 325 m g-5 mg Tab See Instructions, as needed for pain, 40 tab(s), Refill(s) 0, 1-2 tab(s) Oral q4hr, [facility] #[id number], 170.2, cm, 04/21/22 21:37:00 EDT, Height/Length Dosing, [...] day Quantity: 40 Refills: 0 Ordered: 26-Jan-2020 LuigiJone cotter Start: 26-Jan-2020 End: 01-Feb-2020 Generic Substitution Allowed [...] than prescribed may cause serious breathing problems. [id number] 200 actuat albuterol 0.09 mg/actuat metered dose [...] Shortness of Breath, Starting 05/06/20 at 1439 ARIPiprazole 20 mg oral tablet (18 sources) Atypical Antipsychotic Start: 07-26-2023 take 20 mg by mouth once daily at bedtime Aripiprazole Active 20 MG PO Daily at bedtime July 26, 2023 12:00am Start: 04-03-2023 End: 07-26-2023 take 15 mg by mouth once daily at bedtime Aripiprazole Discontinued 15 MG PO Daily at bedtime April 02, 2023 11:00pm July 26, 2023 11:20am Start: 01-22-2023 End: 04-03-2023 take 10 mg by mouth once daily at bedtime Aripiprazole Discontinued 10 MG PO Daily at bedtime January 21, 2023 11:00pm April 03, 2023 11:38am ascorbic acid 500 mg chewable tablet (20 [...] Directed, # 6 tab(s), Refills(s) 0, Pharmacy: [facility] [id number], 170, cm, 10/19/22 14:38:00 EDT, [...] oral solution (7 sources) alpha-Adrenergic Agonist, Uncompetitive O-jfjywj-A-aspartat e Receptor Antagonist, Sigma-1 Agonist Start: 10-19-2022 take 5 mL by mouth four times daily as needed for cough brompheniramine-p seudoephedrine-DM 2-30-10 MG/5ML syrup Take 5 mLs by mouth 4 times daily as needed for Cough 120 mL 0 12/12/2022 Active celecoxib 200 mg oral capsule (20 sources) Nonsteroidal Anti-inflammatory Drug Start: 12-06-2022 End: 07-01-2023 take 200 mg by mouth once daily Celecoxib Active 200 MG PO Daily December 05, 2022 11:00pm Start: 07-28-2022 take 1 capsule by [facility] once daily celecoxib (CELEBREX) 200 MG capsule Indications: Acute pain of right shoulder , Neck pain Take 1 capsule by mouth daily 30 capsule 5 07/28/2022 Active Start: 07-24-2021 End: 12-06-2021 take 200 mg by mouth once daily at mealtime 200 mg, Oral, Daily, First dose on Thu12/04/21 at 0900 Give with Food Start: 06-27-2020 take 1 capsule by [facility] once daily celecoxib (CELEBREX) 200 MG capsule [...] 12-04-2021 Start: 04-23-2020 take 1 capsule by [facility] once daily Celecoxib (Celebrex) 100 mg Capsule [...] Start: 06-28-2019 take 1 capsule by mo [facility] once daily celecoxib (CELEBREX) 200 MG capsule Take 1 capsule by mouth daily 0 06/28/2019 Active Start: 02-08-2019 End: 04-18-2019 take 1 capsule by mouth once daily celecoxib (CELEBREX) 200 MG capsule Indications: Acute right-sided low back pain without sciatica Take 1 capsule by mouth daily 30 capsule 5 02/08/2019 04/18/2019 Discontinued (LIST CLEANUP) cephalexin 500 mg oral capsule (20 sources) Cephalosporin Antibacterial Start: 08-19-2023 take 500 mg by mouth every eight hours Cephalexin Active 500 MG PO Every 8 hours 21 August 19, 2023 12:00am Start: 10-27-2022 End: 11-03-2022 take 1 capsule by mouth every six hours Keflex 500 mg Cap 500 mg = 1 cap(s), Oral, q6hr, X 7 day(s), # 28 cap(s), Refills(s) 0, Pharmacy: [id number], 170, cm, 10/27/22 20:07:00 EDT, Height/Length Dosing, 118, kg, 10/27/22 20:07:00 EDT, Weight Dosing Start Date: 10/27/22 Stop Date: 11/03/22 Status: Ordered Start: 09-06-2022 End: 09-21-2022 take 500 mg by mouth every six hours Cephalexin Discontinued 500 MG PO Q6H 40 September 06, 2022 12:00am September 21, 2022 8:18pm Start: 08-08-2022 End: 08-15-2022 take 1 capsule by mouth every twelve hours Keflex 500 mg Cap 500 mg = 1 cap(s), Oral, q12hr, X 7 day(s), # 14 cap(s), Refills(s) 0, Pharmacy: [id number], 170, cm, 08/08/22 19:35:00 EST, Height/Length Dosing, 119.6, kg, 08/08/22 19:35:00 EST, Weight Dosing Start Date: 08/08/22 Stop Date: 08/15/22 Status: Ordered Start: 07-17-2022 End: 07-24-2022 take 1 capsule by mouth four times daily Keflex 500 mg Cap 500 mg = 1 cap(s), Oral, QID, X 7 day(s), # 28 cap(s), Refills(s) 0, Pharmacy: [id number], 170, cm, 07/17/22 19:43:00 EST, Height/Length Dosing, 115.3, kg, 07/17/22 19:43:00 EST, Weight Dosing Start Date: 07/17/22 Stop Date: 07/24/22 Status: Ordered Start: 03-08-2022 End: 03-15-2022 take 1 capsule by mouth four times daily Keflex 500 mg Cap 500 mg = 1 cap(s), Oral, QID, X 7 day(s), # 28 cap(s), Refills(s) 0, Pharmacy: [id number], 170, cm, 03/08/22 19:56:00 EDT, [...] 2017 11:01pm Start: 09-13-2017 End: 09-23-2017 Start: 07-13-2017 End: 09-02-2017 take 1 capsule by mouth [...] 2017 7:39pm space evenly during waking hours Comment on above: Finish all this medi cation unless otherwise directed by prescriber. Continuous Blood Gluc Furnace Repair Mechanic (FREESTYLE MYRON 14 DAY READER) POOL (8 sources) Start: 03-04-2022 Continuous Blood Gluc Furnace Repair Mechanic (FREESTYLE MYRON 14 DAY READER) POOL Indications: Uncontrolled type 2 diabetes mellitus with complication, with long-term current use of insulin 1 actuation by Does not apply route 4 times daily (before meals and nightly) 1 each 0 03/04/2022 Suspended Start: 03-04-2022 Continuous Blo od Gluc Furnace Repair Mechanic (FREESTYLE MYRON 14 DAY READER) POOL Indications: Uncontrolled type 2 diabetes mellitus with complication, with long-term current use of insulin 1 actuation by Does not apply route 4 times daily (before meals and nightly) 1 each 0 03/04/2022 Active Continuous Blood Gluc Sensor (FREESTYLE MYRON 14 DAY SENSOR) [facility] (6 sources) Start: 06-25-2022 Continuous Blo od Gluc Sensor (FREESTYLE MYRON 14 DAY SENSOR) [facility] Indications: Type 2 diabetes mellitus without complication, with long-term current use of insulin (HCC) Inject 1 actuation into the skin 4 times daily (before meals and nightly) 6 each 3 06/25/2022 Active Continuous Blood Gluc Sensor (FREESTYLE MYRON 2 SENSOR) [facility] (2 sources) Start: 01-05-2023 Continuous Blo od Gluc Sensor (FREESTYLE MYRON 2 SENSOR) [facility] Indications: Type 2 diabetes mellitus without complication, with long-term current use of insulin (HCC) USE DIRECTED to test BLOOD SUGAR BEFORE MEALS and NIGHTLY, leave sensor on for 14 days 5 each 0 01/05/2023 Active Start: 01-05-2023 Continuous Blo od Gluc Sensor (FREESTYLE MYRON 2 SENSOR) [facility] Indications: Type 2 diabetes mellitus without complication, [...] 20 mg/ml oral suspension (4 sources) Uncompetitive E-cpwffg-G-aspartate Receptor Antagonist, Sigma-1 Agonist Start: 05-05-2020 End: [...] day(s), # 14 cap(s), Refills(s) 0, Pharmacy: [id number], 170, cm, 07/11/23 21:19:00 EST, Height/Length Dosing, 128, kg, 07/11/23 21:19:00 EST, Weight Dosing Start Date: 07/12/23 Stop Date: 07/19/23 Status: Ordered Start: 06-07-2023 End: 06-14-2023 take 1 capsule by mouth four times daily Bentyl 10 mg Cap 10 mg = 1 cap(s), Oral, QID, X 7 day(s), # 28 cap(s), Refills(s) 0, Pharmacy: [facility], 170, cm, 06/06/23 22:30:00 EST, Height/Length Dosing, 127.1, kg, 06/06/23 22:30:00 EST, Weight Dosing Start Date: 06/07/23 Stop Date: 06/14/23 Status: Ordered Start: 04-22-2022 End: 04-29-2022 take 1 capsule by mouth four times daily as needed for pain Bentyl 10 mg Cap 10 mg = 1 cap(s), Oral, QID, PRN Pain, X 7 day(s), # 30 cap(s), Refills(s) 0, Pharmacy: [facility] #[id number], 170.2, cm, 04/21/22 21:37:00 EDT, Height/Length Dosing, 109, kg, 04/21/22 21:37:00 EDT, Weight Dosing Start Date: 04/22/22 Stop Date: 04/29/22 Status: Ordered Start: 11-19-2020 dicyclomine (B ENTYL) injection 20 mg Start: 11-19-2020 take 1 tablet by svetlana th three times daily as needed for muscle spasms dicyclomine 20 MG tablet Take 1 tablet by mouth 3 times daily as needed for Abdominal Spasms. 8 tablet 0 11/19/2020 Active Start: 11-09-2019 take 2 capsules by [facility] four times daily for pain dicyclomine [...] oral capsule (20 sources) Tetracycline-class Drug Start: End: 2 take 1 capsule by mouth [...] sources) GLP-1 Receptor Agonist Start: 03-29-2023 Dulaglutide (Trulici ty) 0.75 mg/0.5 mL pen injector Active 0.75 MG SUBCUT every week March 28, 2023 11:00pm Start: 04-15-2022 Trulicity Pen SubCutaneous, qWeek, Blood glucose Start Date: 04/15/22 Status: Ordered Start: 02-26-2022 End: 12-06-2022 Dulaglutide (Trulicity) 0.75 mg/0.5 mL pen injector Discontinued 0.75 MG SUBCUT As Directed March 30, 2022 11:00pm December 06, 2022 4:35am Pictela[employer]CITYBIZLIST Active DULoxetine 60 mg delayed release oral capsule (20 sources) Serotonin and Norepinephrine Reuptake Inhibitor Start: 07-26-2023 take 60 mg by mouth twice daily Duloxetine Active 60 MG PO Twice daily 60 July 26, 2023 12:00am Start: 04-03-2023 End: 07-26-2023 take 30 mg by mouth once daily at bedtime Duloxetine Discontinued 30 MG PO Daily at bedtime April 02, 2023 11:00pm July 26, 2023 11:20am Start: 04-03-2023 End: 07-26-2023 take 60 mg by mouth once daily Duloxetine Discontinued 60 MG PO Daily April 02, 2023 11:00pm July 26, 2023 11:20am Start: 12-17-2022 End: 01-03-2023 take 30 mg by mouth once daily Duloxetine Discontinued 30 MG PO Daily December 16, 2022 11:00pm January 03, 2023 9:11am Start: 12-10-2022 End: 02-01-2023 take 60 mg by mouth once daily Duloxetine Discontinued 60 MG PO Daily January 02, 2023 11:00pm February 01, 2023 10:12am ergocalciferol 1.25 mg oral capsule (20 sources) Provitamin D2 Compound Start: 10-12-2022 take 1 capsule by mouth every week vitamin D (ERGOCALCIFEROL) 1.25 MG (00035 UT) CAPS capsule Indications: Vitamin D deficiency Take 1 capsule by mouth once a week 4 capsule 0 10/12/2022 Active Start: 09-07-2022 End: 10-07-2022 take 1 capsule by mouth every week vitamin D (ERGOCALCIFEROL) 1.25 MG (76660 UT) CAPS capsule Indications: Vitamin D deficiency [...] every week vitamin D (ERGOCALCIFEROL) 1.25 MG (92691 UT) CAPS capsule Indications: Vitamin D deficiency [...] Daily, # 30 tab(s), Refills(s) 0, Pharmacy: [id number], 170, cm, 05/25/20 21:31:00 EST, Height/Length Dosing, 118, kg, 05/25/20 21:31:00 EST, Weight Dosing Start Date: 05/26/20 Status: Ordered fluticasone propionate 0.05 mg/actuat metered dose nasal spray (20 sources) Corticosteroid Start: 07-23-2023 take 1 spray(s) nasal route twice daily Fluticasone Propionate (Allergy Relief (Fluticasone)) 50 mcg/actuation spray,suspension Active 1 SPRAY INTRANASAL Twice daily July 23, 2023 12:00am administer into each nostril Start: 03-12-2022 take 2 spray(s) nasa l route once daily Fluticasone Propionate 50 MCG/ACT [...] Anti-epileptic Agent Start: 04-15-2022 End: 09-26-2022 take 600 mg by mouth three times daily Gabapentin Active 600 MG PO Three times daily August 02, 2022 12:00am Start: 12-04-2021 End: 12-06-2021 take 600 mg [...] mg, SubCUTAneous, PRN, Starting on Thu06/30/23 at 2002, Until Discontinued, Low blood sugar, Blood glucose [...] and does not have IV access., Starting Thu04/18/19 at 0122 After administration, attempt intravenous access [...] IV solution Start: 04-18-2019 15 g, Oral, ID N, Low blood sugar, Starting Thu04/18/19 at [...] 100 mL/hr, PRN, Low blood sugar, Starting 04/18/19 at 0122 Start infusion following administration of [...] Insulin) 100 unit/mL (3 mL) insulin pen (7 sources) Start: 12-14-2022 inject 1 dose by subcutaneous injection at bedtime Insulin Aspart U-100 (Novolog Flexpen U-100 Insulin) 100 unit/mL (3 mL) insulin pen Active 0 sliding scale dose SUBCUT Before meals and at bedtime December 13, 2022 11:00pm Start: 12-06-2022 Insulin Aspart U-100 (Novolog Flexpen U-100 Insulin) 100 unit/mL (3 mL) insulin pen Active 35 UNIT SUBCUT 3x/Day before meals December 05, [...] complication, with long-term current use of insulin ([facility]) INJECT 35 UNITS SUBCUTANEOUSLY THREE TIMES DAILY [...] into the skin 3 times daily Lot [id number] Lot 05/19 2 pen 0 05/22/2020 05/28/2020 [...] 13, 2017 12:00am inject 40 [IU] by garcia bcutaneous injection once daily Tresiba 100 units/mL [...] 100 Units under the skin. 0 Active 3 ml insulin glargine 100 unt/ml pen injector (20 sources) Insulin Analog Start: 07-23-2023 Insulin Glargi ne (Lantus Solostar U-100 Insulin) 100 unit/mL (3 mL) insulin pen Active 20 UNIT SUBCUT Every evening July 23, 2023 12:00am Start: 01-03-2023 End: 07-07-2023 Insulin Glargine (Lantus Eloise ostar U-100 Insulin) 100 unit/mL (3 mL) Insulin Pen Discontinued 32 UNITS SUBCUT Daily 9.6 January 02, 2023 11:00pm July 07, 2023 [...] Start: 01-31-2021 End: 03-02-2021 insulin glargine (Lantus Eloise ostar U-100 Insulin) 100 unit/mL (3 mL) InPn Inject 22 (twenty two) Units under the skin nightly . 15 mL 0 01/31/2021 Active Start: 05-28-2020 inject 100 [IU] by s ubcutaneous injection once daily 100 Units, Subcutaneous, DAILY, First dose on 05/28/20 at 0900 Start: 05-18-2020 End: 05-28-2020 insulin glargine (LANTUS SOLOSTAR) 100 UNIT/ML injection pen Inject up to [...] 09-13-2017 Start: 01-25-2017 inject 70 [IU] by garcia bcutaneous injection at bedtime Lantus 70 unit(s), [...] Active Start: 05-28-2020 inject 45 [IU] by garcia bcutaneous injection three times daily at mealtime 45 Units, Subcutaneous, 3 TIMES DAILY WITH MEALS, First dose on 05/28/20 at 0800 Substituted for Insulin lispro U-200 (HumaLOG KwikPen). Start: 05-22-2020 End: 05-28-2020 insulin lispro, 1 Unit Dial, (HUMALOG KWIKPEN) 100 UNIT/ML SOPN Inject 100 Units into the skin 3 times daily (before meals) Lot [id number] Exp 02/16 2 pen 0 05/22/2020 05/28/2020 [...] Units, Sub cutaneous, NIGHTLY, First dose on Thu04/18/19 at 0123 If continuous tube feedings/TPN/NPO, give [...] 12-06-2022 Start: 07-13-2017 inject 45 [IU] by garcia bcutaneous injection three times daily Insulin Lispro (Humalog) 100 unit/mL Cartridge Active 45 UNITS SUBCUT Three times daily July 13, 2017 12:00am Start: 01-25-2017 Humalog 45 uni t(s), SubCutaneous, TIDAC, Refills(s) 0, High blood sugar Start Date: 01/25/17 Status: Ordered HumaLOG Not-Taki ng HumaLOG 100 unit s/mL injectable solution ; 40 unit(s) injectable 3 times a day Quantity: 0 Refills: 0 Ordered: 12-Apr-2019 [facility] Generic Substitution Allowed HumaLOG Active lidocaine 0.04 mg/mg medicated patch (20 sources) Antiarrhythmic, Amide Local Anesthetic Start: 06-30-2023 apply 1 dose topically once daily 1 patch, Topical, Administer over 12 Hours, DAILY, First dose on Thu06/30/23 at 2029 Substituted for Lidocaine 5% Patch. Start: 04-08-2023 apply 1 dose transde rmal route once daily lidocaine (LIDODERM) 5 % Indications: Neck pain Place 1 patch onto the skin daily 12 hours on, 12 hours off. 30 patch 2 04/08/2023 Active Start: 10-30-2022 End: 12-06-2022 apply 1 dose topically once daily Lidocaine Discontinu ed 1 PATCH TOPICAL Daily October 29, 2022 11:00pm December 06, 2022 [...] Quantity: 5 Refills: 0 Ordered: 24-Jan-2020 Teto Blackburn Start: 24-Jan-2020 Generic Substitution Allowed Comments: For external use only. Start: 04-20-2019 lidocaine 4 % external patch 3 patch Start: 04-19-2019 End: 05-19-2019 lidocaine (LIDODERM) 5 % Jaylin ce 3 patches onto the skin daily 12 hours on, 12 hours off. 90 patch 0 04/19/2019 05/19/2019 Active Comment on above: For external use onl y. loratadine 10 mg oral tablet (13 sources) Start: 3 take 10 mg by mouth once daily Loratadine Active 10 MG PO Daily December 05, 2022 11:00pm meclizine hydrochloride 25 mg oral tablet (7 sources) Antiemetic Start: 4 take 25 mg by mouth three times daily Meclizine Active 25 MG PO Three times daily July 07, 2023 12:00am Start: 03-21-2023 take 1 tablet by svetlana th every eight hours as needed for dizziness meclizine (ANTIVERT) 25 MG tablet Take 1 tablet by mouth every 8 hours as needed for Dizziness 90 tablet 5 03/21/2023 Active Mounjaro 2.5 mg/0.5 mL subcutaneous solution (1 source) Mounjaro 2.5 mg/ 0.5 mL subcutaneous solution ; once a week on thursday Quantity: 0 Refills: 0 Ordered: 05-Dec-2022 Lawrence Win Generic Substitution Allowed mupirocin 0.02 mg/mg topical ointment (1 source) RNA Synthetase Inhibitor Antibacterial Start: 06-30-19 24 take 1 dose nasal route three times daily Each Nostril, 3 TIMES DAILY, First dose on Thu06/30/23 at 2100 nitrofurantoin, macrocrystals 25 mg / nitrofurantoin, monohydrate 75 mg oral capsule (20 sources) Nitrofuran Antibacterial Start: 01-27-20 End: 02-01-20 Start: 08-17-2022 End: 09-21-2022 take 1 capsule by mouth twice daily at mealtime Nitrofurantoin Monohyd/M-Cryst (Macrobid) 100 mg capsule Discontinued 100 MG PO Twice daily 10 August 22, 2022 12:00am September 21, 2022 [...] or milk. OLANZapine 5 mg oral tablet (20 sources) Atypical Antipsychotic Start: take 5 mg by mouth every six hours Olanzapine Active 5 MG PO Q6H July 26, 2023 12:00am Start: 01-29-2023 End: 07-07-2023 take 5 mg by mouth every six hours Olanzapine Discontinued 5 MG PO Q6H January 28, 2023 11:00pm July 07, 2023 3:23pm Start: 01-03-2023 End: 01-22-2023 take 5 mg by mouth at bedtime Olanzapine Discontinued 5 MG PO Bedtime January 17, 2023 11:00pm January 22, 2023 9:53am omeprazole 20 mg delayed release oral capsule (20 sources) Proton Pump Inhibitor Start: 2020 take 20 mg by mouth once daily omeprazole 20 mg, Oral, Daily, Refills(s) 0, Control of stomach acid Start Date: 05/26/20 Status: Ordered Start: 09-13-2018 End: 07-09-2023 take 20 mg by mouth once daily Omeprazole Discontinued 20 MG PO Daily September 12, 2018 11:00pm July 07, 2023 3:23pm take 1 capsule by mo uth once [...] Nausea/Vomiting, # 12 tab(s), Refills(s) 0, Pharmacy: [facility] #[id number], 170.2, cm, 05/11/22 17:35:00 EST, Height/Length Dosing, [...] hours Ondansetron Discontinued 8 MG PO Q8H 04 01July 23, 2020 12:00am March 31, 2022 7:57pm [...] mg oxyCODONE hydrochloride 5 mg oral tablet (11 sources) Opioid Agonist Start: 07-12-2023 take 1 tablet by mouth every six hours as needed for pain oxyCODONE 5 mg Tab TAKE 1 TABLET BY MOUTH EVERY 6 HOURS NEEDED FOR PAIN for up to 7 (SEVEN) days Start Date: 07/12/23 Status: Ordered Start: 07-07-2023 End: 07-23-2023 take 5 mg by mouth four times daily Oxycodone Discontinued 5 MG PO Four times daily July 07, 2023 12:00am July 23, 2023 8:16pm Start: 07-01-2023 End: 07-01-2023 oxyCODONE (ROXICODONE) immed [...] than prescribed may cause serious breathing problems. pantoprazole 40 mg delayed release oral tablet (16 sources) Proton Pump Inhibitor Start: 03-09-20 23 take 1 tablet by mouth once daily Pantoprazole (Protonix) 40 mg Tablet,Delayed Release (Dr/Ec) Active 40 MG PO Daily July 07, 2023 12:00am Start: 12-04-2021 End: 12-06-2021 take 40 mg [...] day Quantity: 30 Refills: 0 Ordered: 07-Aug-2020 Rita Armstrongaret Start: 07-Aug-2020 End: 05-Sep-2020 Generic Substitution Allowed [...] may affect the action of this medication. phenazopyridine hydrochloride 100 mg oral tablet (20 [...] Discontinued 200 MG PO Three times daily 10 Komal 12th, 2019 11:00pm January 19, 2019 5:06am administer with a full glass of water with each meal Comment on above: May discolor urine o r feces.Medication should be taken with plenty of water.Take with food or milk. polymyxin b 34237 unt/ml / trimethoprim 1 mg/ml ophthalmic solution (2 sources) Dihydrofolate Reductase Inhibitor Antibacterial, Polymyxin-class Antibacterial Start: 01-15-20 take 1 drop(s) into the eye(s) every four hours polymyxin b-trimethoprim 61790-7.1 UNIT/ML-% Solution ophthalmic solution Place 1 drop in left eye every 4 hours. 10 mL 0 01/14/2021 Active predniSONE 50 mg oral tablet (4 sources) Start: 10-20-19 End: 10-27-19 take 1 tablet by mouth once daily predniSONE 50 mg Tab 50 mg = 1 tab(s), Oral, Daily, X 7 day(s), # 7 tab(s), Refills(s) 0, Pharmacy: [id number], 170, cm, 10/19/22 14:38:00 EDT, [...] Nausea, # 12 tab(s), Refills(s) 0, Pharmacy: [id number], 170, cm, 09/21/22 23:04:00 EDT, Height/Length Dosing, 120.4, kg, 09/21/22 23:04:00 EDT, Weight Dosing Start Date: 09/22/22 Status: Ordered Start: 08-18-2022 take 1 tablet by svetlana th every eight hours promethazine 12.5 mg oral tablet 12.5 mg = 1 tab(s), Oral, q8hr, # 12 tab(s), Refills(s) 0, Pharmacy: [id number], 170.2, cm, 08/18/22 19:13:00 EST, [...] nausea/vomiting, # 60 tab(s), Refills(s) 0, Pharmacy: [id number], 170, cm, 06/18/22 23:01:00 EST, [...] Start: 05-11-2022 take 25 mg rectal ro elijah every six hours as needed for nausea Phenergan 25 mg Supp 25 mg = 1 supp, Rectal, q6hr, PRN Nausea/Vomiting, # 6 EA, Refills(s) 0, Pharmacy: [id number], 170, cm, 09/21/22 23:04:00 EDT, Height/Length Dosing, 120.4, kg, 09/21/22 23:04:00 EDT, Weight Dosing Start Date: 09/22/22 Status: Ordered Start: 04-22-2022 End: 08-02-2022 take 1 tablet by mouth every eight hours promethazine 12.5 mg oral tablet 12.5 mg = 1 tab(s), Oral, q8hr, # 12 tab(s), Refills(s) 0, Pharmacy: [id number], 170.2, cm, 08/18/22 19:13:00 EST, [...] (Phenergan) 25 mg suppository Discontinued 25 MG ID Q4H October 13, 2017 11:00pm November 11, [...] (2 times per day), First dose on Thu04/18/19 at 0900 Start: 04-18-2019 take 10 mL intraveno us route once as needed 10 mL, Intravenous, PRN, Line Care, After every IV line use, Starting Thu04/18/19 at 0122 Start: 04-18-2019 End: 04-18-2019 Intravenous, at 100 mL/hr, CONTINUOUS, Starting Thu04/18/19 at 0123, For 10 hours Start: 04-17-2019 [...] for 7 day(s), 14 tab(s), Refill(s) 0, [id number], 170.2, cm, 08/18/22 19:13:00 EST, Height/Length Dosing, 110, kg, 08/18/22 19:13:00 EST, Weight Dosing Start Date: 08/18/22 Stop Date: 2/27/23 Status: Ordered Start: 06-19-2022 End: 06-26-2022 take 1 tablet by mouth twice daily Bactrim D.S. 800 mg-160 mg Tab 1 tab(s), Oral, BID for 7 day(s), 14 tab(s), Refill(s) 0, [id number], 170, cm, 06/18/22 23:01:00 EST, [...] Discontinued 1 TAB PO Twice daily 20 October 19, 2019 11:00pm December 21, 2019 [...] (LIST CLEANUP) take 2 tablets by mo uth every twelve hours Bactrim 400 mg-80 mg [...] Start: 07-28-2022 take 1 tablet by svetlana th every eight hours as needed for muscle spasms tiZANidine (ZANAFLEX) 4 MG tablet Indications: Acute neck pain TAKE 1 TABLET BY MOUTH EVERY 8 HOURS NEEDED FOR MUSCLE SPASM 90 tablet 1 07/28/2022 Active Start: 04-15-2022 take 1 capsule by mo uth three times daily tizanidine 4 mg oral [...] 10:10am Start: 10-11-2019 take 1 tablet by svetlana th every six hours as needed for muscle [...] mg, Oral, NIGHTLY, Fir st dose on Thu04/18/19 at 0123 End: 12-04-2021 tiZANidine (ZANAFLEX) 2 [...] 11:00pm March 29, 2023 3:29am Start: 12-10-2022 take 200 mg by mouth at bedtim e Trazodone Active 200 MG PO Bedtime 60 30 December 09, 2022 11:00pm Start: 12-31-2021 End: 12-10-2022 take 100 mg by mouth at bedtime Trazodone Discontinued 100 MG PO Bedtime March 30, 2022 11:00pm December 10, 2022 10:45am Start: 06-26-2020 take 1 tablet by [facility] once daily as needed for sleep traZODone [...] Active Start: 11-19-2021 take 1 capsule by [facility] once daily zinc sulfate (ZINCATE) 50 mg zinc (220 mg) capsule Take 50 mg by mouth daily . 0 11/19/2021 Active Start: 05-10-2020 take 1 capsule by mo [facility] once daily zinc sulfate (ZINCATE) 220 (50 Zn) MG capsule Take 1 capsule by mouth daily 30 capsule 3 05/19/2020 Active Zofran ODT 4 mg Tab-Dis (13 sources) Start: 07-12-2023 take 1 tablet by mouth every eight hours Zofran ODT 4 mg Tab-Dis 4 mg = 1 tab(s), Oral, q8hr, # 12 tab(s), Refills(s) 0, Pharmacy: [id number], 170, cm, 07/11/23 21:19:00 EST, Height/Length Dosing, 128, kg, 07/11/23 21:19:00 EST, Weight Dosing Start Date: 07/12/23 Status: Ordered Start: 01-26-2023 take 1 tablet by svetlana every eight hours as needed for nausea Zofran ODT 4 mg Tab-Dis 4 mg = 1 tab(s), Oral, q8hr, PRN Nausea/Vomiting, # 16 tab(s), Refills(s) 0, Pharmacy: [id number], 170.2, cm, 01/26/23 19:25:00 EDT, Height/Length Dosing, 123, kg, 01/26/23 19:25:00 EDT, Weight Dosing Start Date: 01/26/23 Status: Ordered Start: 10-27-2022 take 1 tablet by svetlana every eight hours as needed for nausea Zofran ODT 4 mg Tab-Dis 4 mg = 1 tab(s), Oral, q8hr, PRN Nausea/Vomiting, # 12 tab(s), Refills(s) 0, Pharmacy: [id number], 170, cm, 10/27/22 20:07:00 EDT, Height/Length Dosing, 118, kg, 10/27/22 20:07:00 EDT, Weight Dosing Start Date: 10/27/22 Status: Ordered Start: 10-09-2022 take 1 tablet by svetlana every eight hours Zofran ODT 4 mg Tab-Dis 4 mg = 1 tab(s), Oral, q8hr, # 10 tab(s), Refills(s) 0, Pharmacy: [id number], 170, cm, 10/09/22 19:53:00 EDT, [...] Start: 03-11-2017 take 2 tablets by mo meh every four hours as needed for pain [...] 1 TAB PO Three times daily 5 July 04, 2022 August 02, 2022 1:01am Start: 04-15-2022 take 1 tablet by svetlana every four hours for pain Odon 325 mg-5 mg oral tablet 1 tab(s), [...] tablet by mouth every six hours Hydrocodone-Acetaminophen (Odon) 5-325 mg tablet Discontinued 1 TAB PO Q6H 10 December 21, 2019 February 19, 2020 3:08pm Start: 07-06-2019 End: 07-19-2019 Start: 07-06-2019 End: 07-19-2019 take 1 tablet by mouth every four to six hours Hydrocodone-Acetaminophen (Odon) 5-325 mg tablet Discontinued 1 TAB PO EVERY 4-6 HOURS 03 31July 06, 2019 July 19, 2019 9:18am Start: 01-19-2019 End: 03-29-2019 take 2 tablets by mouth every four to six hours Hydrocodone-Acetaminophen (Odon) 5-325 mg tablet Discontinued 2 TAB PO EVERY 4-6 HOURS 10 January 19, 2019 March 29, 2019 9:01pm Start: 12-09-2018 End: 01-19-2019 take 1 tablet by mouth every four hours Hydrocodone-Acetaminophen (Odon) 5-325 mg tablet Discontinued 1 TAB PO Q4H 7 December 09, 2018 January 19, 2019 5:06am Start: 12-09-2018 End: 03-29-2019 Start: 10-12-2017 End: 11-11-2017 Start: 10-12-2017 End: 11-11-2017 take 1 tablet by mouth every four to six hours Hydrocodone-Acetaminophen (Odon) 5-325 mg tablet Discontinued 1 TAB PO EVERY 4-6 HOURS October 12, 2017 November 11, 2017 3:00pm Start: 08-26-2017 End: 09-13-2017 take 1 tablet by mouth every four to six hours Hydrocodone-Acetaminophen (Odon) 5-325 mg tablet Discontinued 1 TAB PO [...] on above: Shake well before us e. atorvastatin 40 mg oral tablet (1 source) HMG-CoA Reductase Inhibitor Start: 1 End: 1 take 40 mg by mouth once daily 40 mg, Oral, Nightly, First dose on Thu02/01/21 at 2100 azithromycin (ZITHROMAX) 500 mg in D5W 250ml addavial (1 source) Start: 0 End: 0 azithromycin (ZITHROMAX) 500 mg in D5W 250ml addavial bisacodyl 5 mg delayed release oral tablet (2 sources) Stimulant Laxative Start: take 5 mg by mouth once daily [...] mg busPIRone hydrochloride 7.5 mg oral tablet (9 sources) Start: 07-08-2023 take 1 tablet by mouth three times daily 15 mg, Oral, 3 TIMES DAILY, First dose on Thu07/08/23 at 1400, Until Discontinued This 15 mg tablet can be split into thirds (5 mg) or halves (7.5 mg) based on the ordered dose. Start: 06-30-2023 take 1 tablet by svetlana th three times daily 15 mg, Oral, 3 TIMES DAILY, First dose on Thu06/30/23 at 2100, Until Discontinued This 15 mg tablet can be split into thirds (5 mg) or halves (7.5 mg) based on the ordered dose. Start: 04-03-2023 take 15 mg by mouth three times daily Buspirone Active 15 MG PO Three times daily April 02, 2023 11:00pm calcium chloride 0.0014 meq/ ml / potassium [...] 24 hours, First dose on Thu02/02/21 at 0000 Indication: UTI (mild to moderate) [...] 2 g IVPB in D5W 50ml minibag cetirizine hydrochloride 10 mg oral tablet (20 [...] Discontinued 100 MG PO Twice daily 60 August 17, 2022 12:00am December 06, 2022 4:35am Start: 12-04-2021 End: 12-06-2021 take 100 mg by mouth once daily 100 mg, Oral, Daily, First dose on Thu12/04/21 at 0900 [] Hold for loose stools. DO NOT CRUSH OR CHEW. docusate sodium 50 mg / sennosides, fdc 8.6 mg oral tablet (1 source) Start: 02-01-2021 End: 02-02-2021 senna-docusate (SENNA-S) 8.6-50 mg per tablet 1 tablet 0.4 ml enoxaparin sodium 100 mg/ml prefilled [...] 40 mg, Subcutaneous, DAILY, First dose on 04/18/19 at 0900 esomeprazole 20 mg delayed release oral capsule (20 sources) Proton Pump Inhibitor Start: 07-13-2017 End: 09-13-2018 take 1 capsule by mouth once daily Esomeprazole Magnesium (Nexium) 20 mg Capsule,Delayed Release(Dr/Ec) Discontinued 20 MG PO daily July 13, 2017 12:00am September 13, 2018 8:24am Start: 05-23-2015 take 1 capsule by [facility] once daily Nexium 40 mg Cap-EC 40 [...] 10 mL injection (1 source) Start: End: 023 famotidine (PEPCID) 20 mg in sodium chloride [...] Anxiety Start: 02-05-2023 take 1 capsule by [facility] every six hours as needed for anxiety [...] 7:57pm hyoscyamine sulfate 0.125 mg sublingual tablet (5 sources) Start: 03-29-2023 End: 03-29-2023 Hyoscyamine Sulfate [...] # 60 tab(s), Refills(s) 0, Pharmacy: [facility] #[id number], 170.2, cm, 04/21/22 21:37:00 EDT, Height/Length Dosing, [...] U-100) 100 unit/mL (3 mL) Insulin Pen (17 sources) Start: 09-13-2017 End: 12-06-2022 Insulin Degludec [...] U-100) 100 unit/mL (3 mL) insulin pen (5 sources) Start: 12-06-2022 End: 01-03-2023 Insulin Degludec (Tresiba Flextouch U-100) 100 unit/mL (3 mL) insulin pen Discontinued 40 UNIT SUBCUT Daily December 05, 2022 11:00pm January 03, 2023 9:11am Start: 12-06-2022 Insulin Deglud ec (Tresiba Flextouch U-100) 100 unit/mL (3 mL) insulin pen Active 40 UNIT SUBCUT Daily December 06, 2022 12:00am insulin regular (HUMULIN R;NOVOLIN R) 100 Units [...] tablet Discontinued 500 MG PO Q24H 7 7 December 20, 2019 11:00pm February 19, [...] should be taken with plenty of water. levothyroxine sodium 0.05 mg oral tablet (11 sources) l-Thyroxine Start: 023 End: 024 take 50 ug by mouth once daily Levothyroxine Discontinued 50 MCG PO Daily at 0630 90 January 17, 2023 11:00pm July 07, 2023 3:23pm Levothyroxine So dium 50 MCG Oral for 30 Days Not-Taking loperamide hydrochloride 2 mg oral capsule (1 [...] Starting on Thu06/30/23 at 2001, Until Discontinued, Constipation First line therapy for [...] 30 mL, Oral, DAILY PRN, Constipation, Starting 04/18/19 at 0122 First line therapy for constipation. [...] 6-day course. 42 tablet 0 02/16/2020 Active metoclopramide 5 mg oral tablet (20 sources) Dopamine-2 Receptor Antagonist Start: 01-22-2023 End: 07-07-2023 take 5 mg by mouth once before mealtime Metoclopramide Hcl Discontinued 5 MG PO 3x/Day before meals January 22, 2023 9:43am July 07, 2023 3:23pm Start: 01-22-2023 End: 07-09-2023 take 1 tablet by mouth three times daily before mealtime as needed for nausea metoclopramide (REGLAN) 5 MG tablet TAKE 1 TABLET BY MOUTH THREE TIMES DAILY BEFORE MEALS NEEDED FOR NAUSEA 0 01/22/2023 07/09/2023 Discontinued (Stop Taking at Discharge) Start: 08-19-2021 take 1 tablet by svetlana th four times daily at mealtime metoclopramide (REGLAN) [...] 04-22-2019 metoclopramide (REGLAN) inje ction 10 mg metoprolol tartrate 50 mg oral tablet (20 [...] Start: 04-20-2023 take 2 tablets by mo meh twice daily metoprolol tartrate (LOPRESSOR) 25 MG [...] Start: 06-07-2020 take 2 tablets by mo uth twice [...] 4:45am Start: 11-09-2019 take 1 tablet by [facility] twice daily metoprolol tartrate 50 mg oral [...] take 1 tablet by mouth once daily Metoprolol Tartrate (Lopressor) 50 mg Tablet Discontinued 50 MG PO Daily September 12, 2018 11:00pm January 19, 2019 5:06am Comment on above: It is very important [...] 4 mg nabumetone 750 mg oral tablet (10 sources) Nonsteroidal Anti-inflammatory Drug Start: 10-30-2022 End: [...] tablet Discontinued 500 MG PO Twice daily 04 02August 29, 2022 12:00am October 30, 2022 2:28pm [...] urine or feces.Take with food or milk. pen needle, diabetic (INSULIN PEN NEEDLE MISC) (1 source) Start: 06-19-2021 End: 12-04-2021 pen needle, diabetic (INSULIN PEN NEEDLE MISC) 1 each by NOT APPLICABLE route 4 (four) times a day before meals and nightly . 0 06/19/2021 12/04/2021 Discontinued (Discontinued by another clinician) polyethylene glycol 3350 09924 mg powder for oral solution (20 sources) Osmotic Laxative Start: 08-17-2022 End: 12-06-2022 Polyethylene Glycol 3350 (Miralax) 17 gram/dose powder Discontinued 4 GM PO Daily 120 August 17, 2022 12:00am December 06, 2022 4:16am Start: 08-17-2022 End: 07-07-2023 Polyethylene Glycol 3350 (Mi ralax) 17 gram powder in packet Discontinued 17 GM PO Daily November 26, 2022 11:00pm July 07, 2023 3:23pm mix into 4-8 oz. of any hot/cold/room temp. beverage; use immediately Start: 05-05-2020 17 g, Oral, DA KINJAL [...] IVPB Psyllium Husk (Metamucil) 0.4 gram capsule (11 sources) Start: 08-17-2022 End: 12-06-2022 Psyllium Husk [...] take 20 mg by mouth once daily Rosuvastatin Active 20 MG PO Daily August 02, 2022 12:00am Start: 01-25-2017 End: 03-31-2022 take 1 tablet by mouth once daily Rosuvastatin (Crestor) 20 mg Tablet Discontinued 20 MG PO Daily September 12, 2018 11:00pm March 31, 2022 7:57pm End: 04-15-2015 ROSUVASTATIN CALCIUM (CRESTO R ORAL) Take by mouth. 0 04/15/2015 Discontinued (Discontinued by another Health Care Provider) Comment on above: Take by mouth. sennosides, fdc 8.6 mg oral tablet (1 source) Start: 12-05-19 End: 12-07-19 take 1 tablet by mouth twice daily as needed for constipation 8.6 mg (1 tablet), Oral, 2 times daily PRN, constipation, Starting on Thu12/04/21 at 0515 simethicone 125 mg oral capsule (16 sources) Start: 08-17-19 End: 12-07-19 take 125 [...] day(s), # 4 cap(s), Refills(s) 0, Pharmacy: [id number], 170, cm, 10/09/22 19:53:00 EDT, [...] Refills: 0 Ordered: 30-Jun-2016 Juan Francisco Daniels Adrien Start: 30-Jun-2016 End: 10-Jul-2016 Status: Other Generic [...] capsule by mo uth once daily. Tirzepatide (20 sources) Start: 03-29-2023 End: 07-07-2023 Tirzepatide (Mounjaro) [...] Start: 08-02-2022 End: 01-22-2023 Start: 08-02-2022 Tirzepatide (M ounjaro) 2.5 mg/0.5 mL pen injector Active 2.5 MG SUBCUT every week August 02, 2022 1:00am Start: 08-02-2022 Start: 08-02-2022 Tirzepatide (M ounjaro) 2.5 mg/0.5 mL pen [...] hours Quantity: 12 Refills: 0 Ordered: 20-Nov-2019 Juana Ko Start: 20-Nov-2019 End: 22-Nov-2019 Status: Other Generic [...] of therapy completed) Comment on above: Caution federal law prohibits [...] venlafaxine 150 mg extended release oral capsule (6 sources) Serotonin and Norepinephrine Reuptake Inhibitor Start: [...] Complications of surgical procedures or medical care (11 sources) Seroma following procedure; Translations: [Seroma after procedure] Onset: 4 07-07-2023 Episodic Diabetes mellitus with complications (20 sources) Diabetic polyneuropathy; Translations: [Type II diabetes mellitus uncontrolled] Onset: 1 Resolved: 2 03-11-2017 Chronic Diabetes mellitus without complication (20 sources) Type 2 diabetes mellitus without complications; Translations: [Type 2 diabetes mellitus] Onset: 1 03-11-2017 Chronic Diabetes mellitus without complication (20 sources) Acute hyperglycemia; Translations: [Hyperglycemia] Onset: 1 03-07-2019 Episodic Disorders of lipid metabolism (20 sources) Hyperlipidemia; Translations: [Pure hypercholesterolemia] Onset: 1 04-24-2011 Chronic E Codes: Fall (11 sources) Accidental fall ; Translations: [Fall from [...] classified] Onset: 3 12-05-2022 Chronic Mood disorders (2 sources) Mood disorders; Translations: [Depression, unspecified] Onset: 3 Noninfectious gastroenteritis (1 source) Noninfective gastroenteritis and colitis, unspecified; Translations: [NONINFECTIVE GE AND COLITIS UNS] Onset: 2 Episodic Nonspecific chest pain (20 sources) Chest pain; Translations: [Anterior chest wall pain] Onset: 3 08-01-2014 Episodic Other aftercare (2 sources) nursing home (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 of insulin; Translations: [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] (1 source) Hypoxia; Translations: [Hypoxia] Episodic Other lower respiratory disease (1 source) Shortness of breath; Translations: [Shortness of breath] Onset: 4 Episodic Other nervous system disorders (1 source) [...] shoulder, initial encounter] 12-06-2021 Episodic Thyroid disorders (11 sources) Hypothyroidism; Translations: [Hypothyroidism, unspecified] Onset: 3 01-18-2023 Chronic Unclassified (20 sources) nursing home (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 of insulin; Translations: [Long-term current use of insulin] Onset: 9 03-07-2019 Unclassified (2 sources) Fever, unspecified; Translations: [Fever, unspecified] Onset: 9 Unclassified (1 source) Other alf (current) drug therapy Onset: 9 Unclassified (1 [...] pain, vomiting Onset: 3 Unclassified (1 source) Suicidal Onset: 4 Unclassified (1 source) Medical Clearance Onset: 4 Unclassified (1 source) Ankylosis, right shoulder; Translations: [Ankylosis, right shoulder] Onset: 3 Unclassified (1 source) Low back pain, unspecified; Translations: [Low back pain, unspecified] Onset: 3 Urinary tract infections (20 sources) Chronic cystitis; Translations: [Other chronic cystitis with hematuria] 12-09-2018 Chronic Urinary tract infections (1 source) Urinary tract infections Onset: 8 Viral infection (20 sources) Other specified viral infection; Translations: [Disease caused by 2019-nCoV] Onset: 0 05-12-2020 Episodic Past or Other Problems Problem Classification Problem Date Documented Da te Episodic/Chronic Abdominal hernia (20 sources) Umbilical hernia; Translations: [Umbilical hernia without obstruction or gangrene] Onset: 02-08-2018 02-12-2018 Episodic Complication of device; implant or graft (1 source) Catheter-associated urinary tract infection; Translations: [Urinary tract infection associated with catheterization of urinary tract, unspecified indwelling urinary catheter type, subsequent encounter] Episodic Genitourinary symptoms and ill-defined conditions (20 sources) Blood in urine; Translations: [Hematuria, unspecified] Onset: 02-01-2021 Episodic Headache; including migraine (20 sources) Headache; Translations: [Acute headache] Onset: 04-24-2011 03-29-2015 Episodic Malaise and fatigue (20 sources) Fatigue; Translations: [Exhaustion due to exposure, initial encounter] Onset: 05-12-2020 05-12-2020 Episodic Mood disorders (13 sources) Mood disorder with depressive features due to general medical condition; Translations: [Mood disorder due to known physiological condition with depressive features] Onset: 12-06-2022 12-06-2022 Episodic Nausea and vomiting (20 sources) Nausea with vomiting, unspecified; Translations: [Bilious vomiting] Onset: 09-18-2018 Episodic Other aftercare (12 sources) Long-term current use of insulin; Translations: [nursing home (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 of insulin] Onset: 09-18-2018 03-07-2019 [...] 05-12-2020 Episodic Suicide and intentional self-inflicted injury (20 sources) Suicidal thoughts; Translations: [Suicidal ideations] Onset: 01-18-2023 12-06-2022 Episodic Syncope (4 sources) Syncope and collapse; Translations: [SYNCOPE AND COLLAPSE] Onset: 10-11-2020 Episodic Unclassified (20 sources) Past history of procedure; Translations: [History of renal stent] 02-05-2021 Urinary tract infections (20 sources) Urinary tract infectious disease; Translations: [Acute cystitis] Onset: 12-27-2017 Resolved: 05-17-2019 01-29-2018 Episodic NEGATED: Highlighted row has not occurred!Residual codes; unclassified (2 sources) Disease Episodic Results Test Name Value Interpretation Reference Range Facility Automated erythrocytes count in urine sediment (number/area)Ordered By: Damian Carpenter on 08-19-2023 RBC Auto (Urine sed) [#/Area] Innumerable [HPF] 0-4 [facility] Automated leukocytes count i n urine sediment (number/area)Ordered By: Damian Carpenter on 08-19-2023 WBC Auto (Urine sed) [#/Area] 3-4 [HPF] 0-4 [facility] Basic Metabolic Panelon 07-31 Anion gap [Moles/Vol] 10.0 mmol/L Normal 6.0-15.[address] [facility] Comment on above: Performed By: #### H S TROP, BMP, CBCNO ####[facility] [id number] [place] [id number] [facility] Calcium [Mass/Vol] 10.0 mg/dL Normal 8.6-10.3 [facility] Comment on above: Performed By: #### H S TROP BMP, CBCNO ####[place] [id number] [place] [id number] [facility] Chloride [Moles/Vol] 101 mmol/L Normal 98-107 [facility] Comment on above: Performed By: #### H S TROP BMP, CBCNO ####[place] [id number] [facility] CO2 [Moles/Vol] 32.7 mmol/L High 21.0-31.0 [facility] Comment on above: Performed By: #### H S TROP BMP, CBCNO ####[place] [id number] [facility] Creatinine [Mass/Vol] 0.82 mg/dL Normal 0.60-1.20 [facility] Comment on above: Performed By: #### H S TROP BMP, CBCNO ####[place] [id number] [facility] Creatinine Clr Calc Pharmacy 118.68 Normal [facility] Comment on above: Result Comment: PERF ORMED BY:[address] [place], [place] [id number] MEDICAL RONAN MIKE M.D. Performed By: #### H S TROP BMP, CBCNO ####[place] [id number] [facility] GFR/1.73 sq M.predicted MDRD (S/P/Bld) [Vol rate/Area] mL/min/{1.73_m2} [facility] Comment on above: Performed By: #### H S TROP BMP, CBCNO ####[place] [id number] [facility] Glucose [Mass/Vol] 239 mg/dL High 70-100 [facility] Comment on above: Result Comment: [place] Glucose Reference Range is dependent on time and content of last meal. Glucose of more than 200 mg/dL in a nonstressed, ambulatory subject supports the diagnosis of Diabetes Mellitus. ADA recommended reference range Performed By: #### H S TROP, BMP, CBCNO ####[facility] [id number] [address] Potassium [Moles/Vol] 3.7 mmol/L Normal 3.5-5.1 [facility] Comment on above: Performed By: #### H S TROP, BMP, CBCNO ####[facility] [id number] [place] [id number] [facility] Sodium [Moles/Vol] 140 mmol/L Normal 136-145 [facility] Comment on above: Performed By: #### H S TROP, BMP, CBCNO ####[facility] [id number] [address] Urea nitrogen [Mass/Vol] 12 mg/dL Normal 7-25 [facility] Comment on above: Performed By: #### H S TROP, BMP, CBCNO ####[facility] [id number] [address] Bilirubin Test strip Ql (U)O rdered By: Damian Carpenter on 08-19-2023 Bilirubin Ql (U) Negative Negative [facility] CT abdomen pelvis wo conon 0 08-19-2023 CT abdomen pelvis wo con Normal [facility] Calcium [Mass/volume] in Ser um or PlasmaOrdered By: PROVIDER TEMP on 08-19-2023 Calcium [Mass/Vol] 10.0 mg/dL 8.6-10.3 [facility] Carbon dioxide, total [Moles /volume] in Serum or PlasmaOrdered By: PROVIDER TEMP on 08-19-2023 CO2 [Moles/Vol] 32.7 mmol/L 21.0-31.0 [facility] Chloride [Moles/volume] in S jaron or PlasmaOrdered By: PROVIDER TEMP on 08-19-2023 Chloride [Moles/Vol] 101 mmol/L 98-107 [facility] Color Auto (U)Ordered By: Roshni Carpenter on 08-19-2023 Color (U) Yellow Yellow [facility] Creatinine [Mass/volume] in Serum or PlasmaOrdered By: PROVIDER TEMP on 08-19-2023 Creatinine [Mass/Vol] 0.82 mg/dL 0.60-1.20 [facility] Dipstick and Microscopicon 0 08-19-2023 Appearance (U) Clear Normal Clear [facility] Comment on above: Order Comment: Name Collection Type:: Clean-Voided Midstream Performed By: #### A DDONUAPLUS, UHCG ####[place] [id number] [facility] Bacteria,Urine None Seen Normal None Seen [facility] Comment on above: Order Comment: Name Collection Type:: Clean-Voided Midstream Performed By: #### A DDONUAPLUS, UHCG ####[address] Bilirubin,Urine Negative Normal Negative [facility] Comment on above: Order Comment: Name Collection Type:: Clean-Voided Midstream Performed By: #### A DDONUAPLUS, UHCG ####[address] Color (U) Yellow Normal Yellow [facility] Comment on above: Order Comment: Name Collection Type:: Clean-Voided Midstream Performed By: #### A DDONUAPLUS, UHCG ####[place] [id number] [facility] Glucose Ql (U) >=1000 High Normal [facility] Comment on above: Order Comment: Name Collection Type:: Clean-Voided Midstream Performed By: #### A DDONUAPLUS, UHCG ####[place] [id number] [facility] Hyaline Casts,Urine None Seen Normal 0-8 [facility] Comment on above: Order Comment: Name Collection Type:: Clean-Voided Midstream Performed By: #### A DDONUAPLUS, UHCG ####[place] [id number] [facility] Ketones Ql (U) Negative Normal Negative [facility] Comment on above: Order Comment: Name Collection Type:: Clean-Voided Midstream Performed By: #### A DDONUAPLUS, UHCG ####[address] [address] [facility] Leukocyte esterase Test strip Ql (U) Negative Normal Negative [facility] Comment on above: Order Comment: Name Collection Type:: Clean-Voided Midstream Performed By: #### A DDONUAPLUS, UHCG ####[address] [address] [facility] Nitrite,Urine Negative Normal Negative [facility] Comment on above: Order Comment: Name Collection Type:: Clean-Voided Midstream Performed By: #### A DDONUAPLUS, CG ####[address] [address] [facility] Occult Blood,Urine 3+ High Negative [facility] Comment on above: Order Comment: Name Collection Type:: Clean-Voided Midstream Performed By: #### A DDONLAVINIAPLUS CG ####[address] [address] [facility] pH (U) 6.0 [pH] Normal 5.0-9.0 [facility] Comment on above: Order Comment: Name Collection Type:: Clean-Voided Midstream Performed By: #### A DDONHARSHA CG ####[address] [address] [facility] Protein,Urine Negative Normal Negative [facility] Comment on above: Order Comment: Name Collection Type:: Clean-Voided Midstream Performed By: #### A DDONUAPLUS CG ####[address] [address] [facility] RBC,Urine Innumerable High 0-4 [facility] Comment on above: Order Comment: Name Collection Type:: Clean-Voided Midstream Performed By: #### A DDONUAPLUS, UHCG ####[address] [address] [facility] Specificy Dent,Urine 1.029 Normal 1.001-1.03 0 [facility] Comment on above: Order Comment: Name Collection Type:: Clean-Voided Midstream Performed By: #### A DDONUAPLUS UHCG ####[place] [address] [place] [id number] [facility] Squamous Epithelial Cell,Urine 1-2 Normal 0-2 [facility] Comment on above: Order Comment: Name Collection Type:: Clean-Voided Midstream Performed By: #### A DDONUAPLUS, UHCG ####[place] [address] Urobilinogen,Urine Normal Normal Normal [facility] Comment on above: Order Comment: Name Collection Type:: Clean-Voided Midstream Performed By: #### A DDONUAPLUS, CG ####[place] [address] WBC,Urine 3-4 Normal 0-4 [facility] Comment on above: Order Comment: Name Collection Type:: Clean-Voided Midstream Performed By: #### A DDONUAPLUS, CG ####[address] ECG 12 lead ECGon 08-19-2023 ECG 12 lead ECG Normal [facility] Erythrocyte distribution wid th Auto (RBC) [Ratio]Ordered By: PROVIDER TEMP on 08-19-2023 Erythrocyte distribution width (RBC) [Ratio] 13.7 % 11.9-15.3 [facility] Glucose [Mass/volume] in Ser um or PlasmaOrdered By: PROVIDER TEMP on 08-19-2023 Glucose [Mass/Vol] 239 mg/dL 70-100 [facility] Comment on above: ADA recommended refe rence rangeRandom Glucose Reference Range is dependent on time and content of last meal. Glucose of more than 200 mg/dL in a nonstressed, ambulatory subject supports the diagnosis of Diabetes Mellitus. HCG ( test) IAsolitario d Ql (U)Ordered By: PROVIDER TEMP on 08-19-2023 HCG ( test) Ql (U) Negative [facility] HCG,Urineon 08-19-2023 Beta HCG ( test) Ql (U) Negative Normal [facility] Comment on above: Order Comment: Name Collection Type:: Clean-Voided Midstream Result Comment: PERF ORMED BY:[address] [place], [place] [id number] MEDICAL DIRECTORNATALIA MIKE M.D. Performed By: #### A JOANA, [facility] ####[place] [address] [place] [phone] [facility] Hematocrit Auto (Bld) [Volum e fraction]Ordered By: PROVIDER TEMP on 08-19-2023 Hematocrit (Bld) [Volume fraction] 41.5 % 34.0-46.4 [facility] Hemoglobin [Mass/volume] in BloodOrdered By: PROVIDER TEMP on 08-19-2023 Hemoglobin (Bld) [Mass/Vol] 13.7 g/dL 11.8-15.4 [facility] Hemogram CBC Without Diffon 08-19-2023 Erythrocyte distribution width (RBC) [Ratio] 13.7 % Normal 11.9-15.3 [facility] Comment on above: Performed By: #### H S LIANG LANG, CBCNO ####[facility] [id number] [place] [id number] [facility] Hematocrit (Bld) [Volume fraction] 41.5 % Normal 34.0-46.4 [facility] Comment on above: Performed By: #### H S LIANG LANG, CBCNO ####[address] [address] [facility] Hemoglobin (Bld) [Mass/Vol] 13.7 g/dL Normal 11.8-15.4 [facility] Comment on above: Performed By: #### H S TROP BMP, CBCNO ####[facility] [id number] [place] [id number] [facility] MCH (RBC) [Entitic mass] 28.9 pg Normal 24.7-34.3 [facility] Comment on above: Performed By: #### H S RICKEY BMP, CBCNO ####[facility] [address] [place] [id number] [facility] MCV (RBC) [Entitic vol] 87.6 fL Normal 80-100 [facility] Comment on above: Performed By: #### H S RICKEY BMP, CBCNO ####[place] [address] [place] [address] [facility] Mean Corpuscular HGB Conc 33.0 g/dL Normal 32.0-35.0 [facility] Comment on above: Performed By: #### H S TROP, BMP, CBCNO ####[place] [id number] [facility] Platelet mean volume (Bld) [Entitic vol] 6.6 fL Normal 6.3-10.7 [facility] Comment on above: Result Comment: PERF ORMED BY:[address] [place], [place] [phone] MEDICAL DIRECTORNATALIA MIKE M.D. Performed By: #### H S TROP, BMP, CBCNO ####[place] [id number] [facility] Platelets (Bld) [#/Vol] 250 10*3/uL Normal 150-450 [facility] Comment on above: Performed By: #### H S TROP, BMP, CBCNO ####[place] [id number] [facility] RBC (Bld) [#/Vol] 4.74 10*6/uL Normal 3.60-5.00 [facility] Comment on above: Performed By: #### H S TROP, BMP, CBCNO ####[place] [id number] [facility] WBC (Bld) [#/Vol] 7.9 10*3/uL Normal 3.8-11.6 [facility] Comment on above: Performed By: #### H S TROP, BMP, CBCNO ####[place] [id number] [facility] Ketones Auto test strip (U) [Mass/Vol]Ordered By: Damian Carpenter on 08-19-2023 Ketones (U) [Mass/Vol] Negative Negative [facility] Laboratory - UrinalysisOrder ed By: Damian Carpenter on 08-19-2023 Hyaline casts LM Ql (Urine sed) None seen [LPF] 0-8 [facility] Leukocytes [#/volume] correc suzanne for nucleated erythrocytes in Blood by Automated counOrdered By: PROVIDER TEMP on 08-19-2023 WBC corrected for nucl RBC Auto (Bld) [#/Vol] 7.9 10*3/uL 3.8-11.6 [facility] MCH Auto (RBC) [Entitic mass ]Ordered By: PROVIDER TEMP on 08-19-2023 MCH (RBC) [Entitic mass] 28.9 pg 24.7-34.3 [facility] MCHC Auto (RBC) [Mass/Vol]Or dered By: PROVIDER TEMP on 08-19-2023 MCHC (RBC) [Mass/Vol] 33.0 g/dL 32.0-35.0 [facility] MCV Auto (RBC) [Entitic vol] Ordered By: PROVIDER TEMP on 08-19-2023 MCV (RBC) [Entitic vol] 87.6 fL 80-100 [facility] Nitrite Test strip Ql (U)Ord ered By: Damian Carpenter on 08-19-2023 Nitrite Ql (U) Negative Negative [facility] No Panel InformationOrdered By: PROVIDER TEMP on 08-19-2023 Estimated GFR (CKD-EPI) > 60.0 mL/Min [facility] Pharmacy Creatinine Clearance (Chem 118.68 [facility] Platelet mean volume Auto (B ld) [Entitic vol]Ordered By: PROVIDER TEMP on 08-19-2023 Platelet mean volume (Bld) [Entitic vol] 6.6 fL 6.3-10.7 [facility] Platelets Auto (Bld) [#/Vol] Ordered By: PROVIDER TEMP on 08-19-2023 Platelets (Bld) [#/Vol] 250 10*3/uL 150-450 [facility] Potassium [Moles/volume] in Serum or PlasmaOrdered By: PROVIDER TEMP on 08-19-2023 Potassium [Moles/Vol] 3.7 mmol/L 3.5-5.1 [facility] Protein Auto test strip (U) [Mass/Vol]Ordered By: Damian Carpenter on 08-19-2023 Protein (U) [Mass/Vol] Negative Negative [facility] RBC Auto (Bld) [#/Vol]Ordere d By: PROVIDER TEMP on 08-19-2023 RBC (Bld) [#/Vol] 4.74 10*6/uL 3.60-5.00 [facility] Serum or plasma anion gap de terminationOrdered By: PROVIDER TEMP on 08-19-2023 Anion gap [Moles/Vol] 10.0 mmol/L 6.0-15.[address] [facility] Sodium [Moles/volume] in Ser um or PlasmaOrdered By: PROVIDER TEMP on 08-19-2023 Sodium [Moles/Vol] 140 mmol/L 136-145 [facility] Specific gravity Auto test s trip (U) [Rel density]Ordered By: Damian Carpenter on 08-19-2023 Specific gravity (U) [Rel density] 1.029 1.001-1.03 0 [facility] Squamous epithelial cells de tection in urine sediment by light microscopyOrdered By: Damian Carpenter on 08-19-2023 Epithelial cells.squamous LM Ql (Urine sed) 1-2 [HPF] 0-2 [facility] Troponin I High Sensitivityo n 08-19-2023 Troponin I High Sensitivity 2.5 pg/mL Normal 0.0-15.0 [facility] Comment on above: Result Comment: PERF ORMED BY:[facility] [place] [address] [place], [place] [phone] MEDICAL DIRECTORNATALIA MIKE M.D. Performed By: #### H S TROP, BMP, CBCNO ####[facility] [address] [place] [address] [facility] Troponin I.cardiac [Mass/vol ume] in Serum or Plasma by Detection limit <= 0.01 ng/Ordered By: PROVIDER TEMP on 08-19-2023 Troponin I.cardiac DL <= 0.01 ng/mL [Mass/Vol] 2.5 pg/mL 0.0-15.0 [facility] Urea nitrogen [Mass/volume] in Serum or PlasmaOrdered By: PROVIDER TEMP on 08-19-2023 Urea nitrogen [Mass/Vol] 12 mg/dL 7-25 [facility] Urine bacteria detection by automated methodOrdered By: Damian Carpenter on 08-19-2023 Bacteria Auto Ql (U) None seen None Seen [facility] Urine clarity by refractomet ry automatedOrdered By: Damian Carpenter on 08-19-2023 Clarity Refractometry automated (U) Clear Clear [facility] Urine glucose measurement by automated test strip (mass/volume)Ordered By: Damian Carpenter on 08-19-2023 Glucose Auto test strip (U) [Mass/Vol] >=1000 mg/dL Normal [facility] Urine hemoglobin detection b y automated test stripOrdered By: Damian Carpenter on 08-19-2023 Hemoglobin Auto test strip Ql (U) 3+ Negative [facility] Urine leukocyte esterase det ection by automated test stripOrdered By: Damian Carpenter on 08-19-2023 Leukocyte esterase Auto test strip Ql (U) Negative Negative [facility] Urobilinogen Auto test strip (U) [Mass/Vol]Ordered By: Damian Carpenter on 08-19-2023 Urobilinogen (U) [Mass/Vol] Normal mg/dL Normal [facility] XR chest 2V*on 08-19-2023 XR chest 2V* Normal [facility] pH Auto test strip (U)Ordere d By: Damian Carpenter on 08-19-2023 pH (U) 6.0 [pH] 5.0-9.0 [facility] Glucose Poct Glucometerson 0 07-26-2023 Commemt1 Glu2: Cleaned Meter Normal [facility] Comment on above: Result Comment: PERF ORMED BY:[place] [address] [place], [place] [phone] MEDICAL DIRECTORNATALIA MIKE M.D. Performed By: #### G LULS ####Point of Care testing, Glucose [Mass/Vol] 252 mg/dL Normal [facility] Comment on above: Result Comment: [facility] Glucose Reference Range is dependent on time and content of last meal. Glucose of more than 200 mg/dL in a nonstressed, ambulatory subject supports the diagnosis of Diabetes Mellitus. Performed By: #### G LULS ####Point of Care testing, Glucose [Mass/Vol] 185 mg/dL Normal [facility] Comment on above: Result Comment: [place] Glucose Reference Range is dependent on time and content of last meal. Glucose of more than 200 mg/dL in a nonstressed, ambulatory subject supports the diagnosis of Diabetes Mellitus.PERFORMED BY:[place] [address] [address] [place], [place] [phone] MEDICAL RONAN MIKE M.D. Performed By: #### G LULS ####[facility] Care testing, Glucose Poct Glucometerson 0 07-25-2023 Glucose [Mass/Vol] 128 mg/dL Normal [facility] Comment on above: Result Comment: [facility] Glucose Reference Range is dependent on time and content of last meal. Glucose of more than 200 mg/dL in a nonstressed, ambulatory subject supports the diagnosis of Diabetes Mellitus.PERFORMED BY:[address] [place], [place] [phone] MEDICAL RONAN MIKE M.D. Performed By: #### G LULS ####Point of Care testing, Glucose [Mass/Vol] 129 mg/dL Normal [facility] Comment on above: Result Comment: [facility] Glucose Reference Range is dependent on time and content of last meal. Glucose of more than 200 mg/dL in a nonstressed, ambulatory subject supports the diagnosis of Diabetes Mellitus.PERFORMED BY:[place] [address] [address] [place], [place] [phone] MEDICAL RONAN MIKE M.D. Performed By: #### G LULS ####Point of Care testing, Commemt1 Glu2: Cleaned Meter Normal [facility] Comment on above: Result Comment: PERF ORMED BY:[place] [address] [place] [place], [place] [phone] BRANDEN MIKE M.D. Performed By: #### G LULS ####Point of Care testing, Glucose [Mass/Vol] 236 mg/dL Normal [facility] Comment on above: Result Comment: [place] Glucose Reference Range is dependent on time and content of last meal. Glucose of more than 200 mg/dL in a nonstressed, ambulatory subject supports the diagnosis of Diabetes Mellitus. Performed By: #### G LULS ####Point of Care testing, Glucose [Mass/Vol] 204 mg/dL Normal [facility] Comment on above: Result Comment: [facility] Glucose Reference Range is dependent on time and content of last meal. Glucose of more than 200 mg/dL in a nonstressed, ambulatory subject supports the diagnosis of Diabetes Mellitus.PERFORMED BY:[address] [place], [place] [phone] MEDICAL DIRECTORNATALIA MIKE M.D. Performed By: #### G LULS ####Point of Care testing, Glucose [Mass/Vol] 239 mg/dL Normal [facility] Comment on above: Result Comment: [facility] Glucose Reference Range is dependent on time and content of last meal. Glucose of more than 200 mg/dL in a nonstressed, ambulatory subject supports the diagnosis of Diabetes Mellitus.PERFORMED BY:[address] [place], [place] [phone] MEDICAL DIRECTORNATALIA MIKE M.D. Performed By: #### G LULS ####Point of Care testing, A1C with Estimated Average G [facility] 07-24-2023 Glucose [Mass/Vol] 243 mg/dL Normal [facility] Comment on above: Result Comment: PERF ORMED BY:[address] [place], [place] [phone] MEDICAL DIRECTORNATALIA MIKE M.D. Performed By: #### L IPID, TSH3 wRFLX, T4F, A1C WT eA, [id number] ####[facility] [place] [address] [facility] HbA1c (Bld) [Mass fraction] 10.1 % High 4.3-5.6 [facility] Comment on above: Result Comment: Incr eased risk for diabetes: 5.7 - 6.4 diabetes: >6.4 glycemic control for adults with diabetes: <7.0 Performed By: #### L IPID, TSH3 wRFLX, T4F, A1C WTH eA, [id number] ####[facility] [address] [place] [address] [facility] ECG 12 lead ECGon 07-24-2023 ECG 12 lead ECG Normal [facility] Free T4 (Free Thyroxine)on 0 07-24-2023 Free T4 [Mass/Vol] 0.58 ng/dL Low 0.61-1.12 [facility] Comment on above: Order Comment: FASTI NG Y Performed By: #### L IPID, TSH3 wRFLX, T4F, A1C WTH eA, [id number] ####[facility] [address] [place] [address] [facility] Glucose Poct Glucometerson 0 07-24-2023 Commemt1 Glu2: Cleaned Meter [facility] Comment on above: Result Comment: PERF ORMED BY:[address] [place]IPINLeviSorinVAN[place], [place] [phone] MEDICAL DIRECTORNATALIA MIKE M.D. Performed By: #### G LULS ####Point of Care testing, Glucose [Mass/Vol] 224 mg/dL Normal [facility] Comment on above: Result Comment: [place] Glucose Reference Range is dependent on time and content of last meal. Glucose of more than 200 mg/dL in a nonstressed, ambulatory subject supports the diagnosis of Diabetes Mellitus. Performed By: #### G LULS ####Point of Care testing, Commemt1 Glu2: Cleaned Meter [facility] Comment on above: Result Comment: PERF ORMED BY:[place] [address] [place], [place] [phone] MEDICAL DIRECTORNATALIA MIKE M.D. Performed By: #### G LULS ####Point of Care testing, Glucose [Mass/Vol] 99 mg/dL Normal [facility] Comment on above: Result Comment: [place] Glucose Reference Range is dependent on time and content of last meal. Glucose of more than 200 mg/dL in a nonstressed, ambulatory subject supports the diagnosis of Diabetes Mellitus. Performed By: #### G LULS ####Point of Care testing, Glucose [Mass/Vol] 69 mg/dL [facility] Comment on above: Result Comment: [place] om Glucose Reference Range is dependent on time and content of last meal. Glucose of more than 200 mg/dL in a nonstressed, ambulatory subject supports the diagnosis of Diabetes Mellitus.PERFORMED BY:[place] [address] [address] [place], [place] [phone] MEDICAL DIRECTORNATALIA MIKE M.D. Performed By: #### G LULS ####Point of Care testing, Commemt1 [facility] Comment on above: Result Comment: Glu2 : Will Repeat Test Performed By: #### G LULS ####Point of Care testing, Commemt2 WILL NOTIFY DR/RN [facility] Comment on above: Performed By: #### G LULS ####Point of Care testing, Commemt3 Cleaned Meter [facility] Comment on above: Result Comment: PERF ORMED BY:[place] [address] [address] [place], [place] [phone] MEDICAL RONAN MIKE M.D. Performed By: #### G LULS ####Point of Care testing, Glucose [Mass/Vol] 51 mg/dL Off scale low [facility] Comment on above: Result Comment: [place] om Glucose Reference Range is dependent on time and content of last meal. Glucose of more than 200 mg/dL in a nonstressed, ambulatory subject supports the diagnosis of Diabetes Mellitus. Performed By: #### G LULS ####Point of Care testing, Commemt1 Glu2: Cleaned Meter [facility] Comment on above: Result Comment: PERF ORMED BY:[place] [address] [address] [place], [place] [phone] MEDICAL RONAN MIKE M.D. Performed By: #### G LULS ####Point of Care testing, Glucose [Mass/Vol] 192 mg/dL [facility] Comment on above: Result Comment: [place] om Glucose Reference Range is dependent on time and content of last meal. Glucose of more than 200 mg/dL in a nonstressed, ambulatory subject supports the diagnosis of Diabetes Mellitus. Performed By: #### G LULS ####Point of Care testing, Commemt1 Glu2: Cleaned Meter Normal [facility] Comment on above: Result Comment: PERF ORMED BY:[place] [address] [place], [place] [phone] MEDICAL DIRECTORNATALIA MIKE M.D. Performed By: #### G LULS ####Point of Care testing, Glucose [Mass/Vol] 196 mg/dL Normal [facility] Comment on above: Result Comment: [place] om Glucose Reference Range is dependent on time and content of last meal. Glucose of more than 200 mg/dL in a nonstressed, ambulatory subject supports the diagnosis of Diabetes Mellitus. Performed By: #### G LULS ####Point of Care testing, Lipid Panelon 07-24-2023 Cholesterol [Mass/Vol] 261 mg/dL High 140-[address] [facility] Comment on above: Order Comment: FASTI NG Y Result Comment: Chol less than 200 mg/dl low risk Chol 201-239 mg/dl borderline risk Chol 240 mg/dl and greater high risk Performed By: #### L IPID, TSH3 wRFLX, T4F, A1C WTH eA, [id number] ####[facility] [address] [place] [address] [facility] Cholesterol in HDL [Mass/Vol] 52 mg/dL Normal 23-92 [facility] Comment on above: Order Comment: FASTI NG Y Result Comment: HDL CHOL ATP-III CLASSIFICATION Cardiovascular Risk HDL > or equal to 60 mg/dL LOW HDL < 40 mg/dL HIGH Performed By: #### L IPID, TSH3 wRFLX, T4F, A1C WTH eA, [id number] ####[facility] [address] [place] [address] [facility] Cholesterol.total/Chol esterol in HDL [Mass ratio] 5.0 {ratio} Normal <5.0 [facility] Comment on above: Order Comment: FASTI NG Y Performed By: #### L IPID, TSH3 wRFLX, T4F, A1C WTH eA, [id number] ####[place] [address] [place] [address] [facility] LDL Cholesterol,Calculated 135 mg/dL High 0-100 [facility] Comment on above: Order Comment: FASTI NG Y Result Comment: LDL ATP III CLASSIFICATION LDL less than 100 mg/dL Optimal LDL 100-129 mg/dL Near or above optimal LDL 130-159 mg/dL Borderline high LDL 160-189 mg/dL High LDL greater than 189 mg/dL Very high Performed By: #### L IPID, TSH3 wRFLX, T4F, A1C WT eA, [id number] ####[place] [id number] [facility] Triglyceride w/Reflex 369 mg/dL High 0-149 [facility] Comment on above: Order Comment: FASTI NG Y Result Comment: TRIG ATP III CLASSIFICATION TRIG less than 150 mg/dL Normal TRIG 150-199 mg/dL Borderline high TRIG 200-500 mg/dL High TRIG greater than 500 mg/dL Very high Standard traceable to the Center for Disease Conrtrol and Prevention (CDC) test method. Performed By: #### L IPID, TSH3 wRFLX, T4F, A1C WT eA, [id number] ####[place] [address] [place] [address] [facility] VLDL CHOLESTEROL 73 mg/dL Normal [facility] Comment on above: Order Comment: FASTI NG Y Performed By: #### L IPID, TSH3 wRFLX, T4F, A1C WT eA, [id number] ####[place] [address] [place] [address] [facility] Thyroid Stim Hormone w/Rflxo n 07-24-2023 Thyroid Stim Hormone w/Rflx 14.13 u[iU]/mL High 0.45-5.33 [facility] Comment on above: Order Comment: FASTI NG Y Performed By: #### L IPID, TSH3 wRFLX, T4F, A1C WTH eA, [id number] ####[place] [id number] [facility] Vitamin D 25 Hydroxy Totalon 07-24-2023 Vitamin D 25 Hydroxy Total 20.0 ng/mL Low 30-100 [facility] Comment on above: Order Comment: ELENA Vitale Result Comment: ELIAS MIN D STATUS 25(OH)VITAMIN D RANGE (ng/mL) Deficient <20 Insufficient 20 to <30 Sufficient 30 to 100 Reference: Nathalia MF,Emi NC, Christopher MENJIVAR, et al. Evaluation,treatment, and prevention of vitamin D deficiency; an Endocrine Society clinical practice guideline. JCEM. 2010; 96(7):1911-30.PERFORMED BY:[facility] [place], [place] [phone] MEDICAL DIRECTORNATALIA MIKE M.D. Performed By: #### L IPID, TSH3 wRFLX, T4F, A1C WTH eA, [id number] ####[facility] [place] [address] [facility] CBC AND AUTO DIFFon 07-23-19 ABSOLUTE BASOPHIL 0.1 X10E9/L Normal 0.0-0.2 [facility] Comment on above: Performed By: #### C TRISHA VALENCIA, 5643-2 #### [facility] ([id number]) [address] [place] [address] ABSOLUTE NEUTROPHIL 3.2 X10E9/L Normal 1.5-6.6 [facility] Comment on above: Performed By: #### Rosa VALENCIA CMP, 5643-2 #### [facility] ([id number]) [address] [place] [address] Basophils/100 WBC (Bld) 0.9 % Normal [facility] Comment on above: Performed By: #### Rosa VALENCIA CMP, 5643-2 #### [facility] ([id number]) [address] [place] [address] Eosinophils (Bld) [#/Vol] 0.2 10*3/uL Normal 0.0-0.[address] [facility] Comment on above: Performed By: #### Rosa VALENCIA CMP, 5643-2 #### [facility] ([id number]) [address] [place] [address] Eosinophils/100 WBC (Bld) 3.5 % Normal [facility] Comment on above: Performed By: #### Rosa VALENCIA CMP, 5643-2 #### [facility] ([id number]) [address] [place] [address] Erythrocyte distribution width (RBC) [Ratio] 13.7 % Normal 11.5-15.[address] [facility] Comment on above: Performed By: #### Rosa VALENCIA CMP, 5643-2 #### [facility] ([id number]) [address] [place] [address] Hematocrit (Bld) [Volume fraction] 41.2 % Normal 35-[address] [facility] Comment on above: Performed By: #### Rosa VALENCIA CMP, 5643-2 #### [facility] ([id number]) [address] [place] [address] Hemoglobin (Bld) [Mass/Vol] 14.0 g/dL Normal 11.7-15.[address] [facility] Comment on above: Performed By: #### Rosa VALENCIA CMP, 5643-2 #### [facility] ([id number]) [address] [place] [address] Lymphocytes (Bld) [#/Vol] 2.4 10*3/uL Normal 1.0-3.[address] [facility] Comment on above: Performed By: #### Rosa VALENCIA CMP, 5643-2 #### [facility] ([id number]) [address] [place] [address] Lymphocytes/100 WBC (Bld) 36.9 % Normal [facility] Comment on above: Performed By: #### Rosa VALENCIA CMP, 5643-2 #### [facility] ([id number]) [address] [place] [address] 8[address] MCH (RBC) [Entitic mass] 29.1 pg Normal 27-[address] [facility] Comment on above: Performed By: #### Rosa VALENCIA CMP, 5643-2 #### [facility] ([id number]) [address] [place] [address]66 MCHC (RBC) [Mass/Vol] 34.0 g/dL Normal 32-36 [facility] Comment on above: Performed By: #### Rosa VALENCIA CMP, 5643-2 #### [facility] ([id number]) [address] [place] [address] 95573 MCV (RBC) [Entitic vol] 86 fL Normal 80-[address] [facility] Comment on above: Performed By: #### Rosa VALENCIA CMP, 5643-2 #### [facility] ([id number]) [address] [place] [address] 16295 Monocytes (Bld) [#/Vol] 0.6 10*3/uL Normal 0-0.[address] [facility] Comment on above: Performed By: #### Rosa VALENCIA CMP, 5643-2 #### [facility] ([id number]) [address] [place] [address] 76149 Monocytes/100 WBC (Bld) 9.5 % Normal [facility] Comment on above: Performed By: #### Rosa VALENCIA CMP, 5643-2 #### [facility] ([id number]) [address] [place] [address] 38044 Neutrophils/100 WBC (Bld) 49.2 % Normal [facility] Comment on above: Performed By: #### Rosa VALENCIA CMP, 5643-2 #### [facility] ([id number]) [address] [place] [address]42 Platelet mean volume (Bld) [Entitic vol] 7.0 fL Normal 7-[address] [facility] Comment on above: Performed By: #### Rosa VALENCIA CMP, 5643-2 #### [facility] ([id number]) [address] [place] [address] 29517 Platelets (Bld) [#/Vol] 248 10*3/uL Normal 150-[address] [facility] Comment on above: Performed By: #### Rosa VALENCIA CMP, 5643-2 #### [facility] ([id number]) [address] [place] [address] 55817 RBC COUNT 4.82 X10E12/L Normal 3.80-5.[address] [facility] Comment on above: Performed By: #### Rosa VALENCIA CMP, 5643-2 #### [facility] ([id number]) [address] [place] [address] 77360 WBC (Bld) [#/Vol] 6.6 10*3/uL Normal 4.0-11.0 [facility] Comment on above: Performed By: #### Rosa VALENCIA CMP, 5643-2 #### [facility] ([id number]) [address] [place] [address]57 COMPREHENSIVE METABOLIC PANE [place] 07-23-2023 Albumin [Mass/Vol] 4.3 g/dL Normal 3.2-5.3 [facility] [place] Comment on above: Performed By: #### Rosa VALENCIA CMP, 5643-2 #### [facility] ([id number]) [address] [place] [address] 98872 ALP [Catalytic activity/Vol] 88 U/L Normal 39-[address] [facility] Comment on above: Performed By: #### Rosa VALENCIA CMP, 5643-2 #### [facility] ([id number]) [address] [place] [address] 05396 ALT [Catalytic activity/Vol] 21 U/L Normal 0-[address] [facility] Comment on above: Performed By: #### C TRISHA VALENCIA, 5643-2 #### [facility] ([id number]) [address] [place] [address] 58200 Anion gap [Moles/Vol] 9 mmol/L Normal 5-15 [facility] Comment on above: Performed By: #### Rosa VALENCIA, TRISHA, 5643-2 #### [facility] ([id number]) [address] [place] [address] 86747 AST [Catalytic activity/Vol] 24 U/L Normal 0-[address] [facility] Comment on above: Performed By: #### Rosa VALENCIA CMP, 5643-2 #### [facility] ([id number]) [address] [place] [address] 64900 Bilirubin [Mass/Vol] 0.4 mg/dL Normal 0.3-1.2 [facility] Comment on above: Performed By: #### Rosa VALENCIA, CMP, 5643-2 #### [facility] ([id number]) [address] [place] [address] 35218 Calcium [Mass/Vol] 9.2 mg/dL Normal 8.5-10.5 [facility] [place] Comment on above: Performed By: #### Rosa VALENCIA, TRISHA, 5643-2 #### [facility] ([id number]) [address] [place] [address] 30668 Chloride [Moles/Vol] 101 mmol/L Normal 98-109 [facility] Comment on above: Performed By: #### Rosa BCA, CMP, 5643-2 #### [facility] ([id number]) [address] [place] [address] 01155 CO2 [Moles/Vol] 30 mmol/L Normal 22-[address] [facility] Comment on above: Performed By: #### Rosa VALENCIA, CMP, 5643-2 #### [facility] ([id number]) [address] [place] [address] 39274 Creatinine [Mass/Vol] 0.66 mg/dL Normal 0.40-1.00 [facility] Comment on above: Result Comment: METH OD TRACEABLE TO IDMS STANDARD Performed By: #### C TRISHA VALENCIA, 5643-2 #### [facility] ([id number]) [address] [place] [address] 34394 eGFR (CKD-EPI) NON-RACE DEPENDENT >90 Normal >[address] [facility] Comment on above: Result Comment: Reported eGFR is based on the CKD-EPI 2020 equation that does not use a race coefficient. Performed By: #### C TRISHA VALENCIA, 5643-2 #### [facility] ([id number]) [address] [place] [address] 82727 Glucose [Mass/Vol] 61 mg/dL Low 65-99 [facility] [place] Comment on above: Performed By: #### Rosa VALENCIA CMP, 5643-2 #### [facility] ([id number]) [address] [place] [address] 14247 Potassium [Moles/Vol] 3.9 mmol/L Normal 3.5-5.0 [facility] Comment on above: Performed By: #### Rosa VALENCIA CMP, 5643-2 #### [facility] ([id number]) [address] [place] [address] 08603 Protein [Mass/Vol] 8.3 g/dL High 6.0-8.0 [facility] [place] Comment on above: Performed By: #### Rosa VALENCIA CMP, 5643-2 #### [facility] ([id number]) [address] [place] [address] 18605 Sodium [Moles/Vol] 140 mmol/L Normal 134-146 [facility] [place] Comment on above: Performed By: #### Rosa VALENCIA CMP, 5643-2 #### [facility] ([id number]) [address] [place] [address] 22543 Urea nitrogen [Mass/Vol] 16 mg/dL Normal 5-[address] [facility] Comment on above: Performed By: #### C BCA, [facility], 5643-2 #### [facility] ([id number]) [address] [place] [address] 89546 DRUG SCREEN, URINEon 024 AMPHETAMINE/METHAMP Negative Normal NEG [facility] Comment on above: Result Comment: AMPH /METH screening cut off = 1000 ng/mL Performed By: #### D GARCIA #### [facility] ([id number]) [address] [place] [address] 28814 BARBITURATES Negative Normal NEG [facility] Comment on above: Result Comment: Margarita iturates screening cut off value = 200 ng/mL Performed By: #### D GARCIA #### [facility] ([id number]) [address] [place] [address] 54156 BENZODIAZEPINES Negative Normal NEG [facility] Comment on above: Result Comment: Jeremy odiazepines screening cut off value = 200 ng/mL Performed By: #### D GARCIA #### [facility] ([id number]) [address] [place] [address] 39199 CANNABINOIDS Negative Normal NEG [facility] Comment on above: Result Comment: Tonia abinoids/THC screening cut off value = 50 ng/mL Performed By: #### D GARCIA #### [facility] ([id number]) [address] [place] [address] 70537 COCAINE METABOLITE Negative Normal NEG [facility] [place] Comment on above: Result Comment: Coca ine screening cut off value = 300 ng/mL Performed By: #### D GARCIA #### [facility] ([id number]) [address] [place] [address] 88362 ECSTASY Negative Normal NEG [facility] Comment on above: Result Comment: Ecst asy screening cut off value = 500 ng/mL This report is intended for use in clinical monitoring or management of patients. Performed By: #### D GARCIA #### [facility] ([id number]) [address] [place] [address] 36875 METHADONE Negative Normal NEG [facility] Comment on above: Result Comment: Meth adone screening cut off value = 300 ng/mL. Performed By: #### D AGRCIA #### [facility] ([id number]) [address] [place] [address] 63183 OPIATES Negative Normal NEG [facility] Comment on above: Result Comment: Opia fide screening cut off value = 300 ng/mL NOTE: This test is used for the detection of codeine, hydrocodone (>1000 ng/mL), morphine and hydromorphone (>900 ng/mL) in urine. Performed By: #### D GARCIA #### [facility] ([id number]) [address] [place] [address] 90345 OXYCODONE Negative Normal NEG [facility] Comment on above: Result Comment: Oxyc odone screening cut off value = 300 ng/mL NOTE: This test is used for the detection of oxycodone and oxymorphone in urine. Performed By: #### D GARCIA #### [facility] ([id number]) [address] [place] [address] 55763 PHENCYCLIDINE Negative Normal NEG [facility] Comment on above: Result Comment: Phen cyclidine screening cut off value = 25 ng/mL Performed By: #### D GARCIA #### [facility] ([id number]) [address] [place] [address] 39104 ETHANOLon 07-23-2023 Ethanol [Mass/Vol] mg/dL Normal 0.00-0.08 [facility] [place] Comment on above: Result Comment: This report is intended for use in clinical monitoring or management of patients. Performed By: #### C BCA, CMP, 5643-2 #### [facility] ([id number]) [address] [place] [address] 60420 HCG ( test) Ql (U)o n 07-23-2023 Beta HCG ( test) Ql (U) Negative Normal NEG [facility] Comment on above: Performed By: #### 2 106-3 #### [facility] ([id number]) [address] [place] [address] 41237 URN MACROSCOPIC NURon 2023 BILIRUBIN STORM Negative Normal NEG [facility] Comment on above: Performed By: #### N UM #### [facility] ([id number]) [address] [place] [address] 87406 BLOOD/HGB STORM Large Abnormal NEG [facility] Comment on above: Performed By: #### N UM #### [facility] ([id number]) [address] [place] [address] 39860 GLUCOSE STORM Negative Normal NEG [facility] Comment on above: Performed By: #### N UM #### [facility] ([id number]) [address] [place] [address] 85621 KETONES STORM Negative Normal NEG [facility] Comment on above: Performed By: #### N UM #### [facility] ([id number]) [address] [place] [address] 46154 LEUKOCYTE ESTERASE STORM MODERATE Abnormal NEG [facility] Comment on above: Performed By: #### N UM #### [facility] ([id number]) [address] [place] [address] 69302 NITRITE STORM Negative Normal NEG [facility] Comment on above: Performed By: #### N UM #### [facility] ([id number]) [address] [place] [address] 40027 PH STORM 8.5 Normal 5.0-8.[address] [facility] Comment on above: Performed By: #### N UM #### [facility] ([id number]) [address] [place] [address] PROTEIN STORM 30 mg/dL Abnormal NEG [facility] Comment on above: Performed By: #### N UM #### [facility] ([id number]) [address] [place] [address] 91633 SPECIFIC GRAVITY STORM 1.015 Normal 1.003-1 .[address] [facility] Comment on above: Performed By: #### N UM #### [facility] ([id number]) [address] [place] [address] 34140 UROBILINOGEN STORM 2.0 eu/dL High <1.1 [facility] Comment on above: Performed By: #### N UM #### [facility] ([id number]) [address] [place] [address] 55330 CHEMISTRYOrdered By: Lab ROP User on 07-12-2023 Glucose [Mass/Vol] 308 mg/dL High 55 - 99 mg/dL [facility] POC Subsection Comment on above: Result Comment: Joselyn jennings RN/ POC Device SN [id number] 1 Invalid Interpretation Code [facility] POC Subsection POC User ID [id number] 1 Invalid Interpretation Code [facility] POC Subsection POC Username DORINA SPRAGUE Invalid Interpretation Code [facility] POC Subsection CHEMISTRYOrdered By: Lab ROP User on 07-11-2023 Glucose [Mass/Vol] 411 mg/dL High 55 - 99 mg/dL [facility] POC Subsection POC Device SN [id number] 1 Invalid Interpretation Code [facility] POC Subsection POC User ID [id number] 1 Invalid Interpretation Code [facility] POC Subsection POC Username MIGUELITO YANCEY Invalid Interpretation Code [facility] POC Subsection CHEMISTRYOrdered By: SYSTEM SYSTEM on [...] PM) Normal Negative [facility] UA Auto SS [place].plasma/[place] .RBC (Bld) [Mass ratio] 4-20 /HPF Normal [...] PM) Invalid Interpretation Code 1.005 - 1.030 [facility] UA Auto SS UA Spec Desc Clean Catch (07/11/23 10:22 PM) Normal [facility] UA Auto SS Urobilinogen Qn (U) [id number] {Diaz'U}/dL Normal 0.0 - 1.0 EU/dL [facility] UA Auto SS WBC Auto Ql (U) Negative (07/11/23 10:22 PM) Normal Negative [facility] UA Auto SS WBC LM.HPF (Urine sed) [#/Area] 0-5 /HPF Normal 0-5/HPF [facility] UA Auto SS POCT Glucoseon 07-09-2023 Glucose [Mass/Vol] 392 mg/dL Critically high 70-99 M [facility] Comment on above: Performed By: #### U NEYMAR #### [facility] [address] [place] [address] POC Performed on ACCU-CHEK [facility] Comment on above: Performed By: #### U NEYMAR #### [facility] [address] [place] [address] Glucose [Mass/Vol] 392 mg/dL High 70 - 99 mg/dl [facility] Interpretation and review of laboratory results Abnormal [facility] Performed on ACCU-CHEK [facility] Glucose [Mass/Vol] 325 mg/dL Critically high 70-99 [facility] Comment on above: Performed By: #### U NEYMAR #### [facility] [address] [place] [address] POC Performed on ACCU-CHEK [facility] Comment on above: Performed By: #### U NEYMAR #### [facility] [address] [place] [address] Glucose [Mass/Vol] 325 mg/dL High 70 - 99 mg/dl [facility] Interpretation and review of laboratory results Abnormal [facility] Performed on ACCU-CHEK [facility] MR Cervical spine WO contras ton 07-08-2023 1. Status post anter ior fusion of cervical spine at levels of C5-C7 appearing in satisfactory position. 2. No acute osseous abnormality. 3. Stable mild central canal stenosis at C5/C6 and C6/C7. 4. Redemonstration of neural foraminal narrowing as described above appearing similar compared to prior notable on the left at C5/C6 and C6/C7. [facility] EXAMINATION: MRI OF THE CERVICAL SPINE [...] left neural foramen measuring approximately 2 mm. [facility] Buzz Carias DO - 07/08/2023 EXAMINATION: [...] on the left at C5/C6 and C6/C7. [facility] Radiology Study observation (narrative) [facility] MR Cervical spine WO contras tOrdered By: Buzz Carias on 07-08-2023 [facility] Work Phone: MRI CERVICAL SPINE WO CONTRA [...] Buzz Carias DO 07/08/23 Final result Normal [facility] POCT Glucoseon 07-08-2023 Glucose [Mass/Vol] 267 mg/dL Critically high 70-99 M [facility] Comment on above: Performed By: #### C MP #### [facility] [address] [place] [address] POC Performed on ACCU-CHEK Normal [facility] Comment on above: Performed By: #### C MP #### [facility] [address] [place] [address] Glucose [Mass/Vol] 267 mg/dL High 70 - 99 mg/dl [facility] Interpretation and review of laboratory results Abnormal [facility] Performed on ACCU-CHEK [facility] Glucose [Mass/Vol] 304 mg/dL Critically high 70-99 M [facility] Comment on above: Performed By: #### P GLU #### [facility] [address] [place] [address] POC Performed on ACCU-CHEK [facility] Comment on above: Performed By: #### P GLU #### [facility] [address] [place] [address] Glucose [Mass/Vol] 304 mg/dL High 70 - 99 mg/dl [facility] Interpretation and review of laboratory results Abnormal [facility] Performed on ACCU-CHEK [facility] Glucose [Mass/Vol] 342 mg/dL Critically high 70-99 [facility] Comment on above: Performed By: #### U NEYMAR #### [facility] [address] [place] [address] POC Performed on ACCU-CHEK [facility] Comment on above: Performed By: #### U NEYMAR #### [facility] [address] [place] [address] Glucose [Mass/Vol] 342 mg/dL High 70 - 99 mg/dl [facility] Interpretation and review of laboratory results Abnormal [facility] [employer] [facility] Performed on ACCU-CHEK [facility] XR CERVICAL SPINE (2-3 VIEWS )on [...] No acute abnormalities are noted. Interpreted by: Vivek Wiseman MD Signed by: Vivek Wiseman MD 07/08/23 Final result Normal [facility] XR Cervical spine 2 or 3 Vie wson 07-08-2023 C5-C6 anterior discectomy and fusion with anterior plate and screw fixation in anatomic alignment. No acute abnormalities are noted. [facility] EXAM: XR Cervical Spine, 2 or [...] anatomic alignment. Soft tissues: No acute findings. [facility] Vivek Wiseman MD - 07/08/2023 EXAM: [...] anatomic alignment. No acute abnormalities are noted. [facility] [employer] Rad[facility] Study observation (narrative) [employer] XR Cervical spine 2 or 3 Vie wsOrdered By: Vivek Wiseman on 07-08-2023 [facility] [employer] Work Phone: Activated partial thrombopla stin time (aPTT) in platelet poor plasma by coagulation aOrdered By: Daphnie Gudino on 07-07-2023 aPTT Coag (PPP) [Time] 31.5 s 25.1-36.[address] [facility] Comment on above: A hematocrit value g reater than 55% may lead to inaccurate results in coagulation testing. Patients having hematocrit values >55% require a special collection tube for coagulation studies. Please contact the laboratory at [phone] for redraw instructions. Arterial Blood Gason 024 ABG Base Excess 1.6 mmol/L Normal -3.0-3.0 [facility] Comment on above: Performed By: #### A BG ####Point of Care testing, ABG Frac Inspired O2 Normal [facility] Comment on above: Performed By: #### A BG ####Point of Care testing, ABG Oxygen Content 4.7 mmol/L Low 6.6-9.7 [facility] Comment on above: Performed By: #### A BG ####Point of Care testing, ABG Oxygen Saturation 54.7 % Low 95.0-100.0 [facility] Comment on above: Performed By: #### A BG ####Point of Care testing, ABG PCO2 52.0 mm[Hg] Off scale high 35.0-45.0 [facility] Comment on above: Performed By: #### A BG ####Point of Care testing, ABG PH 7.35 Normal 7.35-7.45 [facility] Comment on above: Performed By: #### A BG ####Point of Care testing, ABG PO2 31.0 mm[Hg] Off scale low 80.0-100.0 [facility] Comment on above: Performed By: #### A BG ####Point of Care testing, CO2 [Moles/Vol] 29.7 mmol/L High 23.0-27.0 [facility] Comment on above: Performed By: #### A BG ####Point of Care testing, HCO3 (Bld) [Moles/Vol] 28.1 mmol/L Normal 23.0-29.0 [facility] Comment on above: Performed By: #### A BG ####Point of Care testing, Respiratory Critical Normal [facility] Comment on above: Result Comment: Crit ical Value called on: 07/07/2023 at 18:10PERFORMED BY:[place] [id number] [place], [place] [phone] MEDICAL DIRECTORNATALIA MIKE M.D. Performed By: #### A BG ####Point of Care testing, VBG Draw Site Venous Normal [facility] Comment on above: Performed By: #### A BG ####Point of Care testing, Automated basophil %Ordered By: Daphnie Gudino on 07-07-2023 Basophils/100 WBC (Bld) 1.1 % Normal . [facility] Comment on above: Performed By: #### B [employer]KER METAL, CBC, PT, CK, HS TROP, PTT ####[address] [address] [facility] Automated basophil countOrde red By: Daphnie Gudino on 07-07-2023 Basophils (Bld) [#/Vol] 0.1 10*3/uL Normal 0.0-0.2 [facility] Comment on above: Result Comment: PERF ORMED BY:[place] [address] [place], [place] [phone] MEDICAL DIRECTORNATALIA MIKE M.D. Performed By: #### B [employer] METAL, CBC, PT, CK, HS TROP, PTT ####[address] [address] [facility] Automated blood monocyte cou ntOrdered By: Daphnie Gudino on 07-07-2023 Monocytes (Bld) [#/Vol] 0.6 10*3/uL Normal 0.0-0.8 [facility] Comment on above: Performed By: #### B [employer] METAL, CBC, PT, CK, HS TROP, PTT ####[place] [id number] [facility] Automated eosinophil %Ordere d By: Daphnie Gudino on 07-07-2023 Eosinophils/100 WBC (Bld) 3.4 % Normal . [facility] Comment on above: Performed By: #### B [employer] METAL, CBC, PT, CK, HS TROP, PTT ####[address] Automated eosinophil countOr dered By: Daphnie Gudino on 07-07-2023 Eosinophils (Bld) [#/Vol] 0.3 10*3/uL Normal 0.0-0.45 [facility] Comment on above: Performed By: #### B [employer] METAL, CBC, PT, CK, HS TROP, PTT ####[address] Automated monocyte %Ordered By: Daphnie Gudino on 07-07-2023 Monocytes/100 WBC (Bld) 8.0 % Normal . [facility] Comment on above: Performed By: #### B [employer] METAL, CBC, PT, CK, HS TROP, PTT ####[place] [id number] [facility] Automated neutrophil %Ordere d By: Daphnie Gudino on 07-07-2023 Neutrophils/100 WBC (Bld) 58.5 % Normal . [facility] Comment on above: Performed By: #### B [employer] METAL, CBC, PT, CK, HS TROP, PTT ####[place] [id number] [facility] BNP ser/plasOrdered By: Tanmay Gudino on 07-07-2023 Natriuretic peptide B (Bld) [Mass/Vol] 9.0 pg/mL Normal 5-100 [facility] Comment on above: Result Comment: PERF ORMED BY:[address] [place], [place] [phone] MEDICAL DIRECTORNATALIA MIKE M.D. Performed By: #### B ORGAN PIPE MAKER METAL, CBC, PT, CK, HS TROP, PTT ####[place] [address] [place] [phone] [facility] Basic Metabolic Panelon Creatinine Clr Calc Pharmacy 116.55 [facility] Comment on above: Performed By: #### H SIDDHARTHA HERNANDEZ, BMP ####[place] [address] GFR/1.73 sq M.predicted MDRD (S/P/Bld) [Vol rate/Area] mL/min/{1.73_m2} [facility] Comment on above: Performed By: #### H SIDDHARTHA HERNANDEZ, BMP ####[place] [address] Beta Hydroxybuterateon 07-07 Beta Hydroxybuterate 0.60 mmol/L High 0.02-0.27 [facility] Comment on above: Performed By: #### H SIDDHARTHA HERNANDEZ, BMP ####[address] Beta hydroxybutyrate [Moles/ volume] in Serum or PlasmaOrdered By: Daphnie Gudino on 07-07-2023 Beta hydroxybutyrate [Moles/Vol] 0.60 mmol/L 0.02-0.27 [facility] Bilirubin Test strip Ql (U)O rdered By: Daphnie Gudino on 07-07-2023 Bilirubin Ql (U) Negative Negative [facility] CT angio chest PE protocolon 07-07-2023 CT angio chest PE protocol [facility] CT soft tissue neck w conon 07-07-2023 CT soft tissue neck w con [facility] Calcium [Mass/volume] in Ser um or PlasmaOrdered By: Daphnie Gudino on 07-07-2023 Calcium [Mass/Vol] 10.1 mg/dL Normal 8.6-10.3 [facility] Comment on above: Performed By: #### H SIDDHARTHA HERNANDEZ, BMP ####[place] [address] [place] [phone] [facility] Carbon dioxide, total [Moles /volume] in Serum or PlasmaOrdered By: Daphnie Gudino on 07-07-2023 CO2 [Moles/Vol] 27.0 mmol/L Normal 21.0-31.0 [facility] Comment on above: Performed By: #### H SIDDHARTHA HERNANDEZ, BMP ####[place] [id number] [facility] Chloride [Moles/volume] in S jaron or PlasmaOrdered By: Daphnie Gudino on 07-07-2023 Chloride [Moles/Vol] 98 mmol/L Normal 98-107 [facility] Comment on above: Performed By: #### H SIDDHARTHA HERNANDEZ, BMP ####[address] Choriogonadotropin.beta subu nit [Units/volume] in Serum or PlasmaOrdered By: Daphnie Gudino on 07-07-2023 HCG.beta subunit Qn Negative [facility] Color Auto (U)Ordered By: As jayson Gudino on 07-07-2023 Color (U) Yellow Yellow [facility] Complete Blood Count Auto Di ffon 07-07-2023 Mean Corpuscular HGB Conc 34.0 g/dL Normal 32.0-35.0 [facility] [facility] Comment on above: Performed By: #### B ORGAN PIPE MAKER METAL, CBC, PT, CK, HS TROP, PTT ####[place] [id number] [facility] Monocytes/100 WBC (Bld) 20.06 % High 0.00-20.00 [facility] Comment on above: Result Comment: For adults in ED, MDW > 20.0 may be associated with a higher risk of sepsis during the first 12 hrs of hospital admission Performed By: #### B [employer] PIPE [employer] METAL, CBC, PT, CK, HS TROP, PTT ####[place] [id number] [facility] NRBC% 0.1 /100{WBC} Normal 0-0.5 [facility] Comment on above: Performed By: #### B [employer] METAL, CBC, PT, CK, HS TROP, PTT ####[place] [address] [place] [address] [facility] Creatine kinase [Enzymatic a ctivity/volume] in Serum or PlasmaOrdered By: Daphnie Gudino on 07-07-2023 CK [Catalytic activity/Vol] 40 U/L Normal 30-223 [facility] Comment on above: Performed By: #### B [employer] METAL, CBC, PT, CK, HS TROP, PTT ####[place] [address] [place] [id number] [facility] Creatinine [Mass/volume] in Serum or PlasmaOrdered By: Daphnie Gudino on 07-07-2023 Creatinine [Mass/Vol] 0.81 mg/dL Normal 0.60-1.20 [facility] Comment on above: Performed By: #### H CGQUAL, BHOB, BMP ####[address] ECG 12 lead ECGon 07-07-2023 ECG 12 lead ECG Normal [facility] Erythrocyte distribution wid th [Ratio] by Automated countOrdered By: Daphnie Gudino on 07-07-2023 Erythrocyte distribution width (RBC) [Ratio] 13.5 % Normal 11.9-15.3 [facility] Comment on above: Performed By: #### B [employer] P[employer]KER METAL, CBC, PT, CK, HS TROP, PTT ####[place] [address] [place] [phone] [facility] Erythrocytes [#/volume] in B lood by Automated countOrdered By: Daphnie Gudino on 07-07-2023 RBC (Bld) [#/Vol] 4.69 10*6/uL Normal 3.60-5.00 [facility] Comment on above: Performed By: #### B ORGAN PIPE MAKER METAL, CBC, PT, CK, HS TROP, PTT ####[place] [address] [place] [phone] [facility] Glucose Glucometer (BldC) [M ass/Vol]Ordered By: Daphnie Gudino on 07-07-2023 Glucose [Mass/Vol] 331 mg/dL [facility] Comment on above: Random Glucose Refer ence Range is dependent on time and content of last meal. Glucose of more than 200 mg/dL in a nonstressed, ambulatory subject supports the diagnosis of Diabetes Mellitus. Glucose Poct Glucometerson 0 07-07-2023 Glucose [Mass/Vol] 331 mg/dL Normal [facility] Comment on above: Result Comment: [place] Glucose Reference Range is dependent on time and content of last meal. Glucose of more than 200 mg/dL in a nonstressed, ambulatory subject supports the diagnosis of Diabetes Mellitus.PERFORMED BY:[place] [address] [address] [place], [place] [phone] MEDICAL DIRECTORNATALIA MIKE M.D. Performed By: #### G LUTRAY ####Point of Care testing, Glucose [Mass/volume] in Ser um or PlasmaOrdered By: Daphnie Gudino on 07-07-2023 Glucose [Mass/Vol] 484 mg/dL High 70-100 [facility] Comment on above: ADA recommended refe rence rangeRandom Glucose Reference Range is dependent on time and content of last meal. Glucose of more than 200 mg/dL in a nonstressed, ambulatory subject supports the diagnosis of Diabetes Mellitus. Result Comment: [place] Glucose Reference Range is dependent on time and content of last meal. Glucose of more than 200 mg/dL in a nonstressed, ambulatory subject supports the diagnosis of Diabetes Mellitus. ADA recommended reference range Performed By: #### H CGQUAL, BHOB, BMP ####[place] [address] [place] [address] [facility] HCG,Qualitative Serumon HCG,Qualitative Serum Negative Normal [facility] Comment on above: Result Comment: PERF ORMED BY:[place] [address] [place] [place], [place] [id number] MEDICAL DIRECTORNATALIA MIKE M.D. Performed By: #### H CGQUAL, BHOB, BMP ####[address] [address] [facility] Hematocrit [Volume Fraction] of Blood by Automated countOrdered By: Daphnie Gudino on 07-07-2023 Hematocrit (Bld) [Volume fraction] 40.3 % Normal 34.0-46.4 [facility] Comment on above: Performed By: #### B ORGAN PIPE MAKER METAL, CBC, PT, CK, HS TROP, PTT ####[facility] Hemoglobin [Mass/volume] in BloodOrdered By: Daphnie Gudino on 07-07-2023 Hemoglobin (Bld) [Mass/Vol] 13.7 g/dL Normal 11.8-15.4 [facility] Comment on above: Performed By: #### B ORGAN PIPE MAKER METAL, CBC, PT, CK, HS TROP, PTT ####[place] [address] INR in Platelet poor plasma by Coagulation assayOrdered By: Daphnie Gudino on 07-07-2023 INR Coag (PPP) [Relative time] 1.0 {INR} Normal [facility] Comment on above: INR Therapeutic Rang e [...] 3 - 4.5 Performed By: #### B ORGAN PIPE MAKER METAL, CBC, PT, CK, HS TROP, PTT ####[facility] [place] [phone] [facility] Ketones Auto test strip (U) [Mass/Vol]Ordered By: Daphnie Gudino on 07-07-2023 Ketones (U) [Mass/Vol] 1+ Negative [facility] Laboratory - Chemistry and C hemistry - challengeOrdered By: Daphnie Gudino on 07-07-2023 CO2 [Moles/Vol] 29.7 mmol/L 23.0-27.0 [facility] HCO3 (Bld) [Moles/Vol] 28.1 mmol/L 23.0-29.[address] [facility] Leukocytes [#/volume] correc suzanne for nucleated erythrocytes in Blood by Automated counOrdered By: Daphnie Gudino on 07-07-2023 WBC corrected for nucl RBC Auto (Bld) [#/Vol] 7.4 10*3/uL 3.8-11.6 [facility] Leukocytes [#/volume] in Blo od by Automated countOrdered By: Daphnie Gudino on 07-07-2023 WBC (Bld) [#/Vol] 7.4 10*3/uL Normal 3.8-11.6 [facility] Comment on above: Performed By: #### B ORGAN PIPE MAKER METAL, CBC, PT, CK, HS TROP, PTT ####[place] [address] [place] [phone] [place] Lymphocytes [#/volume] in Bl ood by Automated countOrdered By: Daphnie Gudino on 07-07-2023 Lymphocytes (Bld) [#/Vol] 2.1 10*3/uL Normal 1.00-4.8 [facility] Comment on above: Performed By: #### B ORGAN PIPE MAKER METAL, CBC, PT, CK, HS TROP, PTT ####[place] [id number] [facility] Lymphocytes/100 leukocytes i n Blood by Automated countOrdered By: Daphnie Gudino on 07-07-2023 Lymphocytes/100 WBC (Bld) 29.0 % Normal . [facility] Comment on above: Performed By: #### B ORGAN PIPE MAKER METAL, CBC, PT, CK, HS TROP, PTT ####[address] [address] [place] MCH [Entitic mass] by Automa suzanne countOrdered By: Daphnie Gudino on 07-07-2023 MCH (RBC) [Entitic mass] 29.2 pg Normal 24.7-34.3 [facility] Comment on above: Performed By: #### B ORGAN PIPE MAKER METAL, CBC, PT, CK, HS TROP, PTT ####[address] [address] [facility] MCHC Auto (RBC) [Mass/Vol]Or dered By: Daphnie Gudino on 07-07-2023 MCHC (RBC) [Mass/Vol] 34.0 g/dL 32.0-35.0 [facility] MCV [Entitic volume] by Auto mated countOrdered By: Daphnie Gudino on 07-07-2023 MCV (RBC) [Entitic vol] 85.8 fL Normal 80-100 [facility] Comment on above: Performed By: #### B ORGAN PIPE MAKER METAL, CBC, PT, CK, HS TROP, PTT ####[place] [address] [place] [phone] [facility] Monocyte distribution width [Entitic volume] in Blood by AutomatedOrdered By: Daphnie Gudino on 07-07-2023 Monocyte distribution width Auto (Bld) [Entitic vol] 20.06 % 0.00-20.00 [facility] Comment on above: For adults in ED, MD W > 20.0 may be associated with a higher risk of sepsis during the first 12 hrs of hospital admission Neutrophils [#/volume] in Bl ood by Automated countOrdered By: Daphnie Gudino on 07-07-2023 Neutrophils (Bld) [#/Vol] 4.3 10*3/uL Normal 1.8-7.7 [facility] Comment on above: Performed By: #### B ORGAN PIPE MAKER METAL, CBC, PT, CK, HS TROP, PTT ####[place] [id number] [facility] Nitrite Test strip Ql (U)Ord ered By: Daphnie Gudino on 07-07-2023 Nitrite Ql (U) Negative Negative [facility] No Panel InformationOrdered By: Daphnie Gudino on 07-07-2023 Arterial Blood Base Excess 1.6 mmol/L -3.0-3.0 [facility] Arterial Blood Oxygen Content 4.7 mmol/L 6.6-9.7 [facility] Arterial Blood Oxygen Saturation 54.7 % 95.0-100.0 [facility] Arterial Blood Partial Pressure CO2 52.0 mm[Hg] 35.0-45.0 [facility] Arterial Blood Partial Pressure O2 31.0 mm[Hg] 80.0-100.0 [facility] Arterial Blood pH 7.35 7.35-7.[address] [facility] Blood Gas Critical Value See comment [facility] Comment on above: Critical Value sharp d on: 07/07/2023 at 18:10 Blood Gas Sample Site Venous Fir [facility] FiO2 Na % [facility] Estimated GFR (CKD-EPI) > 60.0 mL/Min [facility] Creatinine Clearance (Chem 116.55 [facility] Nucleated erythrocytes [Pres ence] in Blood by Automated countOrdered By: Daphnie Gudino on 07-07-2023 Nucleated RBC Auto Ql (Bld) 0.1 /100{WBC} 0-0.5 [facility] Partial Thromboplastin Timeo n 07-07-2023 aPTT Coag (Bld) [Time] 31.5 s Normal 25.1-36.[address] [facility] Comment on above: Result Comment: A he matocrit value greater than 55% may lead to inaccurate results in coagulation testing. Patients having hematocrit values >55% require a special collection tube for coagulation studies. Please contact the laboratory at [phone] for redraw instructions.PERFORMED BY:[place] [address] [place], [place] [phone] MEDICAL DIRECTORNATALIA MIKE M.D. Performed By: #### B ORGAN PIPE MAKER METAL, CBC, PT, CK, HS TROP, PTT ####[place] [address] [place] [address] [facility] Platelet mean volume [Entiti c volume] in Blood by Automated countOrdered By: Daphnie Gudino on 07-07-2023 Platelet mean volume (Bld) [Entitic vol] 7.1 fL Normal 6.3-10.7 [facility] Comment on above: Performed By: #### B ORGAN PIPE MAKER METAL, CBC, PT, CK, HS TROP, PTT ####[address] [address] [place] Platelets [#/volume] in Bloo d by Automated countOrdered By: Daphnie Gudino on 07-07-2023 Platelets (Bld) [#/Vol] 238 10*3/uL Normal 150-450 [facility] Comment on above: Performed By: #### B ORGAN PIPE MAKER METAL, CBC, PT, CK, HS TROP, PTT ####[place] [address] [place] [address] [facility] Potassium [Moles/volume] in Serum or PlasmaOrdered By: Daphnie Gudino on 07-07-2023 Potassium [Moles/Vol] 3.9 mmol/L Normal 3.5-5.1 [facility] Comment on above: Performed By: #### H SIDDHARTHA HERNANDEZ, BMP ####[place] [address] [place] [address] [facility] Protein Auto test strip (U) [Mass/Vol]Ordered By: Daphnie Gudino on 07-07-2023 Protein (U) [Mass/Vol] Negative Negative [facility] Prothrombin time (PT)Ordered By: Daphnie Gudino on 07-07-2023 PT Coag (PPP) [Time] 11.4 s Normal 9.0-12.9 [facility] Comment on above: A hematocrit value g reater than 55% may lead to inaccurate results in coagulation testing. Patients having hematocrit values >55% require a special collection tube for coagulation studies. Please contact the laboratory at [phone] for redraw instructions. Result Comment: A he matocrit value greater than 55% may lead to inaccurate results in coagulation testing. Patients having hematocrit values >55% require a special collection tube for coagulation studies. Please contact the laboratory at [phone] for redraw instructions. Performed By: #### B ORGAN PIPE MAKER METAL, CBC, PT, CK, HS TROP, PTT ####[place] [address] [place] [address] [facility] Serum or plasma anion gap de terminationOrdered By: Daphnie Gudino on 07-07-2023 Anion gap [Moles/Vol] 14.9 mmol/L Normal 6.0-15.[address] [facility] Comment on above: Performed By: #### H SIDDHARTHA HERNANDEZ, BMP ####[place] [address] [place] [address] [facility] Sodium [Moles/volume] in Ser um or PlasmaOrdered By: Daphnie Gudino on 07-07-2023 Sodium [Moles/Vol] 136 mmol/L Normal 136-145 [facility] Comment on above: Performed By: #### H SIDDHARTHA HERNANDEZ BMP ####[place] [address] [place] [phone] [facility] Specific gravity Auto test s trip (U) [Rel density]Ordered By: Daphnie Gudino on 07-07-2023 Specific gravity (U) [Rel density] > 1.050 1.001-1.03 0 [facility] Troponin I High Sensitivityo n 07-07-2023 Troponin I High Sensitivity 3.3 pg/mL Normal 0.0-15.0 [facility] Comment on above: Result Comment: PERF ORMED BY:[address]IR[address] [place]IR[place], [place] [id number] MEDICAL DIRECTORNATALIA MIKE M.D. Performed By: #### H S TROP ####[place] [id number] [facility] Troponin I High Sensitivity 2.7 pg/mL Normal 0.0-15.0 [facility] Comment on above: Result Comment: PERF ORMED BY:[place] [address] [place], [place] [id number] MEDICAL DIRECTORNATALIA MIKE M.D. Performed By: #### B ORGAN PIPE MAKER METAL, CBC, PT, CK, HS TROP, PTT ####[place] [phone] [facility] Troponin I.cardiac [Mass/vol ume] in Serum or Plasma by Detection limit <= 0.01 ng/Ordered By: Daphnie Gudino on 07-07-2023 Troponin I.cardiac DL <= 0.01 ng/mL [Mass/Vol] 3.3 pg/mL 0.0-15.0 [facility] Urea nitrogen [Mass/volume] in Serum or PlasmaOrdered By: Daphnie Gudino on 07-07-2023 Urea nitrogen [Mass/Vol] 17 mg/dL Normal 7-25 [facility] Comment on above: Performed By: #### H SIDDHARTHA HERNANDEZ, BMP ####[address] [place] [address] [place] Urinalysison 07-07-2023 Appearance (U) Clear Normal Clear [facility] Comment on above: Order Comment: Name Collection Type:: Clean-Voided Midstream Performed By: #### U A ####[address] [address] [place] Bilirubin,Urine Negative Normal Negative [facility] Comment on above: Order Comment: Name Collection Type:: Clean-Voided Midstream Performed By: #### U A ####[address] [address] [place] Color (U) Yellow Normal Yellow [facility] Comment on above: Order Comment: Name Collection Type:: Clean-Voided Midstream Performed By: #### U A ####[address] [address] [facility] Glucose Ql (U) >=1000 High Normal [facility] Comment on above: Order Comment: Name Collection Type:: Clean-Voided Midstream Performed By: #### U A ####[address] [address] [place] Ketones Ql (U) 1+ High Negative [facility] Comment on above: Order Comment: Name Collection Type:: Clean-Voided Midstream Performed By: #### U A ####[address] [address] [facility] Leukocyte esterase Test strip Ql (U) Negative Normal Negative [facility] Comment on above: Order Comment: Name Collection Type:: Clean-Voided Midstream Performed By: #### U A ####[address] [address] [place] Nitrite,Urine Negative Normal Negative [facility] Comment on above: Order Comment: Name Collection Type:: Clean-Voided Midstream Performed By: #### U A ####[address] [address] [place] Occult Blood,Urine Negative Normal Negative [facility] Comment on above: Order Comment: Name Collection Type:: Clean-Voided Midstream Result Comment: PERF ORMED BY:[facility] [place], [place] [phone] MEDICAL DIRECTORNATALIA MIKE M.D. Performed By: #### U A ####[address] [address] [facility] pH (U) 6.5 [pH] Normal 5.0-9.0 [facility] Comment on above: Order Comment: Name Collection Type:: Clean-Voided Midstream Performed By: #### U A ####[address] [address] [facility] Protein,Urine Negative Normal Negative [facility] Comment on above: Order Comment: Name Collection Type:: Clean-Voided Midstream Performed By: #### U A ####[address] [address] [facility] Specificy Dent,Urine > 1.050 High 1.001-1.03 0 [facility] Comment on above: Order Comment: Name Collection Type:: Clean-Voided Midstream Performed By: #### U A ####[address] [address] [facility] Urobilinogen,Urine Normal Normal Normal [facility] Comment on above: Order Comment: Name Collection Type:: Clean-Voided Midstream Performed By: #### U A ####[address] [address] [facility] Urine clarity by refractomet ry automatedOrdered By: Daphnie Gudino on 07-07-2023 Clarity Refractometry automated (U) Clear Clear [facility] Urine glucose measurement by automated test strip (mass/volume)Ordered By: Daphnie Gudino on 07-07-2023 Glucose Auto test strip (U) [Mass/Vol] >=1000 mg/dL Normal [facility] Urine hemoglobin detection b y automated test stripOrdered By: Daphnie Gudino on 07-07-2023 Hemoglobin Auto test strip Ql (U) Negative Negative [facility] Urine leukocyte esterase det ection by automated test stripOrdered By: Daphnie Gudino on 07-07-2023 Leukocyte esterase Auto test strip Ql (U) Negative Negative [facility] Urobilinogen Auto test strip (U) [Mass/Vol]Ordered By: Daphnie Gudino on 07-07-2023 Urobilinogen (U) [Mass/Vol] Normal mg/dL Normal [facility] pH Auto test strip (U)Ordere d By: Daphnie Gudino on 07-07-2023 pH (U) 6.5 [pH] 5.0-9.0 [facility] CBC W Auto Differential pane l (Bld)on 07-01-2023 Basophils (Bld) [#/Vol] 0.0 10*3/uL 0.0 - 0.2 K/uL [facility] Basophils/100 WBC (Bld) 0.5 % [facility] Eosinophils (Bld) [#/Vol] 0.2 10*3/uL 0.0 - 0.7 K/uL [facility] Eosinophils/100 WBC (Bld) 2.8 % [facility] Erythrocyte distribution width (RBC) [Ratio] 13.0 % 11.5 - 14.5 % [facility] Hematocrit (Bld) [Volume fraction] 36.2 % Low 37.0 - 47.0 % [facility] Hemoglobin (Bld) [Mass/Vol] 11.6 g/dL Low 12.0 - 16.0 g/dL [facility] Interpretation and review of laboratory results Abnormal [facility] Lymphocytes (Bld) [#/Vol] 1.1 10*3/uL 1.0 - 4.8 K/uL [facility] Lymphocytes/100 WBC (Bld) 14.7 % [facility] MCH (RBC) [Entitic mass] 28.7 pg 27.0 - 31.3 pg [facility] MCHC (RBC) [Mass/Vol] 32.0 % Low 33.0 - 37.0 % [facility] MCV (RBC) [Entitic vol] 89.6 fL 79.4 - 94.8 fL [facility] Monocytes (Bld) [#/Vol] 0.7 10*3/uL 0.2 - 0.8 K/uL [facility] Monocytes/100 WBC (Bld) 9.3 % [facility] Neutrophils (Bld) [#/Vol] 5.4 10*3/uL 1.4 - 6.5 K/uL [facility] Platelets (Bld) [#/Vol] 201 10*3/uL 130 - 400 K/uL [facility] RBC (Bld) [#/Vol] 4.04 10*6/uL Low [facility] Segmented neutrophils/100 WBC (Bld) 72.4 % [facility] WBC (Bld) [#/Vol] 7.4 10*3/uL 4.8 - 10.8 K/uL [facility] CBC With Platelet and Differ entialon 07-01-2023 Basophils (Bld) [#/Vol] 0.0 10*3/uL Normal 0.0-0.2 [facility] Comment on above: Performed By: #### P GLU #### [facility] [address] [place] [address] Basophils/100 WBC (Bld) 0.5 % Normal [facility] Comment on above: Performed By: #### P GLU #### [facility] [address] [place] [address] Eosinophils (Bld) [#/Vol] 0.2 10*3/uL Normal 0.0-0.7 [facility] Comment on above: Performed By: #### P GLU #### [facility] [address] [place] [address] Eosinophils/100 WBC (Bld) 2.8 % Normal [facility] Comment on above: Performed By: #### P GLU #### [facility] [address] [place] [address] Erythrocyte distribution width (RBC) [Ratio] 13.0 % Normal 11.5-14.5 [facility] Comment on above: Performed By: #### P GLU #### [facility] [address] [place] [address] Hematocrit (Bld) [Volume fraction] 36.2 % Low 37.0-47.0 [facility] Comment on above: Performed By: #### P GLU #### [facility] [address] [place] [address] Hemoglobin (Bld) [Mass/Vol] 11.6 g/dL Low 12.0-16.0 [facility] Comment on above: Performed By: #### P GLU #### [facility] [address] [place] [address] Lymphocytes (Bld) [#/Vol] 1.1 10*3/uL Normal 1.0-4.8 [facility] Comment on above: Performed By: #### P GLU #### [facility] [address] [place] [address] Lymphocytes/100 WBC (Bld) 14.7 % Normal [facility] Comment on above: Performed By: #### P GLU #### [facility] [address] [place] [address] MCH (RBC) [Entitic mass] 28.7 pg Normal 27.0-31.3 [facility] Comment on above: Performed By: #### P GLU #### [facility] [address] [place] [address] MCHC 32.0 % Low 33.0-37.0 [facility] Comment on above: Performed By: #### P GLU #### [facility] [address] [place] [address] MCV (RBC) [Entitic vol] 89.6 fL Normal 79.4-94.8 [facility] Comment on above: Performed By: #### P GLU #### [facility] [address] [place] [address] Monocytes (Bld) [#/Vol] 0.7 10*3/uL Normal 0.2-0.8 [facility] Comment on above: Performed By: #### P GLU #### [facility] [address] [place] [address] Monocytes/100 WBC (Bld) 9.3 % Normal [facility] Comment on above: Performed By: #### P GLU #### [facility] [address] [place] [address] Neutrophils (Bld) [#/Vol] 5.4 10*3/uL Normal 1.4-6.5 [facility] Comment on above: Performed By: #### P GLU #### [facility] [address] [place] [address] Neutrophils/100 WBC (Bld) 72.4 % Normal [facility] Comment on above: Performed By: #### P GLU #### [facility] [address] [place] [address] Platelets (Bld) [#/Vol] 201 10*3/uL Normal 130-400 [facility] Comment on above: Performed By: #### P GLU #### [facility] [address] [place] [address] RBC (Bld) [#/Vol] 4.04 10*6/uL Low 4.20-5.40 [facility] Comment on above: Performed By: #### P GLU #### [facility] [address] [place] [address] WBC (Bld) [#/Vol] 7.4 10*3/uL Normal 4.8-10.8 [facility] Comment on above: Performed By: #### P GLU #### [facility] [address] [place] [address] Comprehensive Metabolic Pane loco 07-01-2023 Albumin [Mass/Vol] 3.5 g/dL Normal 3.5-4.6 [facility] Comment on above: Performed By: #### C MP #### [facility] [address] [place] [address] ALP [Catalytic activity/Vol] 72 U/L Normal 40-130 [facility] Comment on above: Performed By: #### C MP #### [facility] [address] [place] [address] ALT [Catalytic activity/Vol] 15 U/L Normal 0-33 [facility] Comment on above: Performed By: #### C MP #### [facility] [address] [place] [address] Anion gap [Moles/Vol] 10 mmol/L Normal 9-15 [facility] Comment on above: Performed By: #### C MP #### [facility] [address] [place] [address] AST [Catalytic activity/Vol] 17 U/L Normal 0-35 [facility] Comment on above: Performed By: #### C MP #### [facility] [address] [place] [address] Bilirubin [Mass/Vol] 0.4 mg/dL Normal 0.2-0.7 [facility] Comment on above: Performed By: #### C MP #### [facility] [address] [place] [address] Calcium [Mass/Vol] 8.0 mg/dL Low 8.5-9.9 [facility] Comment on above: Performed By: #### C MP #### [facility] [address] [place] [address] Chloride [Moles/Vol] 102 mmol/L Normal 95-107 [facility] Comment on above: Performed By: #### C MP #### [facility] [address] [place] [address] CO2 [Moles/Vol] 26 mmol/L Normal 20-31 [facility] Comment on above: Performed By: #### C MP #### [facility] [address] [place] [address] Creatinine [Mass/Vol] 0.56 mg/dL Normal 0.50-0.90 [facility] Comment on above: Performed By: #### C MP #### [facility] [address] [place] [address] GFR >60.0 Normal >60 [facility] Comment on above: Result Comment: Pedi atric [...] secretion. Performed By: #### C MP #### [facility] [address] [place] [address] Globulin (S) [Mass/Vol] 2.6 g/dL Normal 2.3-3.5 [facility] Comment on above: Performed By: #### C MP #### [facility] [address] [place] [address] Glucose [Mass/Vol] 275 mg/dL Critically high 70-99 [facility] Comment on above: Performed By: #### C MP #### [facility] [address] [place] [address] Potassium [Moles/Vol] 4.2 mmol/L Normal 3.4-4.9 [facility] Comment on above: Performed By: #### C MP #### [facility] [address] [place] [address] Protein [Mass/Vol] 6.1 g/dL Low 6.3-8.0 [facility] Comment on above: Performed By: #### C MP #### [facility] [address] [place] [address] Sodium [Moles/Vol] 138 mmol/L Normal 135-144 [facility] Comment on above: Performed By: #### C MP #### [facility] [address] [place] [address] Urea nitrogen [Mass/Vol] 10 mg/dL Normal 6-20 [facility] Comment on above: Performed By: #### C MP #### [facility] [address] [place] [address] Comprehensive metabolic 2000 panelon 07-01-2023 Albumin [Mass/Vol] 3.5 g/dL 3.5 - 4.6 g/dL [facility] ALP [Catalytic activity/Vol] 72 U/L 40 - 130 U/L [facility] ALT [Catalytic activity/Vol] 15 U/L 0 - 33 U/L [facility] Anion gap [Moles/Vol] 10 mmol/L [facility] AST [Catalytic activity/Vol] 17 U/L 0 - 35 U/L [facility] Bilirubin [Mass/Vol] 0.4 mg/dL 0.2 - 0 .7 mg/dL [facility] Calcium [Mass/Vol] 8.0 mg/dL Low 8.5 - 9.9 mg/dL [facility] Chloride [Moles/Vol] 102 mmol/L [facility] CO2 [Moles/Vol] 26 mmol/L [facility] Creatinine [Mass/Vol] 0.56 mg/dL 0.50 - 0.90 mg/dL [facility] GFR/1.73 sq M.predicted among non-blacks MDRD (S/P/Bld) [Vol rate/Area] 60 - PINF [facility] Comment on above: Pediatric calculator link https://www.kidney.org/professionals/kdoqi/gfr_calculatorped [...] [Mass/Vol] 2.6 g/dL 2.3 - 3.5 g/dL [facility] Glucose [Mass/Vol] 275 mg/dL High 70 - 99 mg/dL [facility] Interpretation and review of laboratory results Abnormal [facility] Potassium [Moles/Vol] 4.2 mmol/L [facility] Protein [Mass/Vol] 6.1 g/dL Low 6.3 - 8.0 g/dL [facility] Sodium [Moles/Vol] 138 mmol/L [facility] Urea nitrogen [Mass/Vol] 10 mg/dL 6 - 20 mg/dL [facility] Guidance-- during surgeryon 07-01-2023 EXAMINATION: SPOT FLUOROSCOPIC [...] fixation hardware as well as interbody graft. [facility] Paulina Bojorquez MD - 07/01/2023 EXAMINATION: [...] See separate procedure report for more information. [facility] [employer] Guidance-- during surgeryOrd ered By: Paulina Bojorquez on 07-01-2023 [facility] Work Phone: Magnesiumon 07-01-2023 Magnesium [Mass/Vol] 1.9 mg/dL Normal 1.7-2.4 [facility] Comment on above: Performed By: #### U NEYMAR #### [facility] [address] [place] [address] Magnesium [Mass/Vol] 1.9 mg/dL 1.7 - 2 .4 mg/dL [facility] No Panel Informationon 07-01 [facility] POCT Glucoseon 07-01-2023 Glucose [Mass/Vol] 305 mg/dL Critically high 70-99 [facility] Comment on above: Performed By: #### P GLU #### [facility] [address] [place] [address] POC Performed on ACCU-CHEK [facility] Comment on above: Performed By: #### P GLU #### [facility] [address] [place] [address] Glucose [Mass/Vol] 305 mg/dL High 70 - 99 mg/dl [facility] Interpretation and review of laboratory results Abnormal [facility] Performed on ACCU-CHEK [facility] Glucose [Mass/Vol] 249 mg/dL Critically high 70-99 [facility] Comment on above: Performed By: #### P GLU #### [facility] [address] [place] [address] POC Performed on ACCU-CHEK Normal [facility] Comment on above: Performed By: #### P GLU #### [facility] [address] [place] [address] Glucose [Mass/Vol] 249 mg/dL High 70 - 99 mg/dl [facility] Interpretation and review of laboratory results Abnormal [facility] Performed on ACCU-CHEK [facility] FLUORO FOR SURGICAL PROCEDUR ESon 06-30-2023 FLUORO [...] Paulina Bojorquez MD 07/01/23 Final result Normal [facility] Guidance-- during surgeryon 06-30-2023 Radiology Study observation (narrative) [facility] HbA1c (Bld) [Mass fraction]o n 06-30-2023 Interpretation and review of laboratory results Abnormal [facility] Hemoglobin A1con 06-30-2023 HbA1c (Bld) [Mass fraction] 9.8 % Critically high 4.8-5.9 [facility] Comment on above: Performed By: #### U NEYMAR #### [facility] [address] [place] [address] HbA1c (Bld) [Mass fraction] 9.8 % High 4.8 - 5.9 % [facility] POCT Glucoseon 06-30-2023 Glucose [Mass/Vol] 208 mg/dL Critically high 70-99 [facility] Comment on above: Performed By: #### U NEYMAR #### [facility] [address] [place] [address] POC Performed on ACCU-CHEK Normal [facility] Comment on above: Performed By: #### U NEYMAR #### [facility] [address] [place] [address] Performed By: #### P GLU #### [facility] [address] [place] [address] Glucose [Mass/Vol] 208 mg/dL High 70 - 99 mg/dl [facility] Interpretation and review of laboratory results Abnormal [facility] [employer] Performed on ACCU-CHEK [facility] Glucose [Mass/Vol] 90 mg/dL Normal 70-99 [facility] Comment on above: Performed By: #### P GLU #### [facility] [address] [place] [address] Performed on ACCU-CHEK [facility] Glucose [Mass/Vol] 82 mg/dL Normal 70-99 [facility] Comment on above: Performed By: #### P GLU #### [facility] [address] [place] [address] POC Performed on ACCU-CHEK Normal [facility] Comment on above: Performed By: #### P GLU #### [facility] [address] [place] [address] Glucose [Mass/Vol] 82 mg/dL 70 - 99 mg/dl [facility] Performed on ACCU-CHEK [facility] MRSA, DNA, Nasalon 3 MRSA, DNA, Nasal SEE BELOW Abnormal NEG [facility] Comment on above: Result Comment: POSI TIVE: MRSA DNA detected by nucleic acid amplification. Results should be used as an adjunct to nosocomial control efforts to identify patients needing enhanced precautions. The test is not intended to identify patients with staphylococcal infections. Results should not be used to guide or monitor treatment for MRSA infections. Performed at [facility], [address] [place], [place] [id number] . Performed By: #### U NEYMAR #### [facility] [address] [place] [address] MRSA, DNA, Nasalon 3 Specimen Description Swab Normal [facility] Comment on above: Performed By: #### U NEYMAR #### [facility] [address] [place] [address] Type and 3 cell Screen OB Ca ptureon 06-23-2023 Type and 3 cell Screen OB Capture PATIENT: BRANDT Burnette LOC: [facility] BILL# : [id number] : 1975 SEX: F ORDERED BY: JUSTIN FLETCHER ORDERED : 06/23/2023 13:11 COLLECTED: 06/23/2023 14:03 ORDER : [id number] RECEIVED : 06/23/2023 14:03 --- TEST NAME RESULT UNITS RANGES ABN FL ST ABORH Capture A POS F Antibody 3 Cell Scrn Captu NEG F -- Normal [facility] Comment on above: Performed By: #### P GLU #### [facility] [address] [place] [address] C Urineon 06-08-2023 Bacteria identified Cx Nom (U) Normal [facility] Comment on above: Performed By: #### 1 [id number], [id number] ####[facility] [address] [place] [address] Auto Diffon 06-07-2023 Basophils/100 WBC (Bld) 0.8 % Normal 0.0-2.0 [facility] Comment on above: Order Comment: Order Added by Discern Expert. Performed By: #### 2 692909, 8151811, 9950176, 0426296, 87596778, 2550522, 5305289 ####[facility] [address] [place] [address] Basophils/Leukocytes Auto (Bld) [Pure # fraction] 0.1 E9/L Normal 0.0-0.2 [facility] Comment on above: Order Comment: Order Added by Discern Expert. Performed By: #### 2 220377, 4622354, 9103298, 0187224, 26878200, 3199753, 2207875 ####[address] [place] [address] Eosinophils/100 WBC (Bld) 2.1 % Normal 0.0-8.0 [facility] Comment on above: Order Comment: Order Added by Discern Expert. Performed By: #### 2 693193, 1300848, 8294826, 8016274, 09105304, 1464723, 7116273 ####[address] [place] [address] Eosinophils/Leukocytes Auto (Bld) [Pure # fraction] 0.2 E9/L Normal 0.0-0.5 [facility] Comment on above: Order Comment: Order Added by Discern Expert. Performed By: #### 2 484682, 9188122, 2696302, 8517730, 88667316, 5438940, 7734239 ####[address] [address] Lymphocytes/100 WBC (Bld) 30.9 % Normal 14.0-50.0 [facility] Comment on above: Order Comment: Order Added by Discern Expert. Performed By: #### 2 242816, 1462208, 8407684, 9632993, 85344814, 8370281, 8405933 ####[address] [place] [address] Lymphocytes/Leukocytes Auto (Bld) [Pure # fraction] 2.7 E9/L Normal 1.0-4.0 [facility] Comment on above: Order Comment: Order Added by Discern Expert. Performed By: #### 2 396025, 0282036, 2775620, 4031122, 62129926, 7751788, 7670518 ####[address] [address] Monocytes/100 WBC (Bld) 8.1 % Normal 4.0-14.0 [facility] Comment on above: Order Comment: Order Added by Discern Expert. Performed By: #### 2 513493, 6299892, 2573862, 3496330, 60236539, 7590004, 9963178 ####[address] [place] [address] Monocytes/Leukocytes Auto (Bld) [Pure # fraction] 0.7 E9/L Normal 0.2-1.0 [facility] Comment on above: Order Comment: Order Added by Discern Expert. Performed By: #### 2 273821, 5701268, 5236338, 1095623, 80814861, 1658538, 4803824 ####[address] [place] [address] Neutrophils/100 WBC (Bld) 58.1 % Normal 36.0-75.0 [facility] Comment on above: Order Comment: Order Added by Discern Expert. Performed By: #### 2 119120, 6704943, 7960769, 6748627, 08784309, 9462516, 1433866 ####[address] [address] Neutrophils/Leukocytes Auto (Bld) [Pure # fraction] 5.0 E9/L Normal 2.0-7.5 [facility] Comment on above: Order Comment: Order Added by Discern Expert. Performed By: #### 2 235907, 7222238, 7868862, 9323710, 40400208, 4118781, 9070720 ####[address] [place] [address] BMPon 06-07-2023 Creatinine [Mass/Vol] 0.8 mg/dL Normal 0.5-1.3 [facility] Comment on above: Performed By: #### 2 701699, 2543306, 8592325, 3912530, 66277974, 7640589, 8808932 ####[address] [place] [address] Urea nitrogen [Mass/Vol] 21 mg/dL Normal 5-21 [facility] Comment on above: Performed By: #### 2 035690, 1492743, 7510745, 6585358, 08848745, 6320734, 2752526 ####[address] [place] [address] Urea nitrogen/Creatinine [Mass ratio] 26 No Units High 10-20 [facility] Comment on above: Performed By: #### 2 115016, 7405102, 4960407, 0981132, 21479877, 0225028, 8911297 ####[facility] [address] [place] [address] Anion gap [Moles/Vol] 12 mmol/L Normal 6-16 [facility] Comment on above: Performed By: #### 2 166470, 6556250, 1080196, 0686078, 49235904, 0686195, 1668046 ####[facility] [address] [place] [address] Calcium [Mass/Vol] 9.9 mg/dL Normal 8.9-11.1 [facility] Comment on above: Performed By: #### 2 677413, 9553262, 6513561, 8373593, 04826822, 6720076, 0846129 ####[facility] [address] [place] [address] Chloride [Moles/Vol] 103 mmol/L Normal 101-111 [facility] Comment on above: Performed By: #### 2 305152, 1193901, 9467797, 6676463, 40772465, 4285931, 3319212 ####[facility] [address] [place] [address] CO2 [Moles/Vol] 30 mmol/L Normal 21-[address] [facility] Comment on above: Performed By: #### 2 093029, 0775361, 6394079, 2483007, 32682507, 1069445, 1193924 ####[facility] [address] [place] [address] Glucose [Mass/Vol] 183 mg/dL Normal 55-199 [facility] Comment on above: Result Comment: If t his glucose result represents a fasting glucose, interpretation should refer to the following reference range: 55-99 mg/dL Performed By: #### 2 863170, 9352592, 3722877, 1184406, 12360698, 0305665, 6432299 ####[facility] [address] [place] [address] Potassium [Moles/Vol] 3.8 mmol/L Normal 3.5-5.3 [facility] Comment on above: Performed By: #### 2 275983, 2149537, 0672644, 2562689, 43026627, 0599881, 5122099 ####[facility] [address] [place] [address] Sodium [Moles/Vol] 141 mmol/L Normal 135-145 [facility] Comment on above: Performed By: #### 2 563331, 3638811, 5012045, 8136911, 72167328, 7522954, 5089801 ####[address] [address] CBC w/ Auto Diffon Erythrocyte distribution width (RBC) [Ratio] 13.6 % Normal 10.9-14.2 [facility] Comment on above: Performed By: #### 2 670344, 8999327, 6519761, 7201955, 41582677, 8598193, 9728860 ####[address] [address] Hematocrit (Bld) [Volume fraction] 41.1 % Normal 34.0-46.0 [facility] Comment on above: Performed By: #### 2 322820, 3370791, 1596307, 0565573, 02788177, 3977490, 6508498 ####[facility] [address] [place] [address] Hemoglobin (Bld) [Mass/Vol] 13.7 g/dL Normal 12.0-16.0 [facility] Comment on above: Performed By: #### 2 618071, 1806259, 2929634, 3508704, 61132569, 8788256, 9211194 ####[facility] [address] [place] [address] MCH (RBC) [Entitic mass] 28.5 pg Normal 27.0-34.0 [facility] Comment on above: Performed By: #### 2 518738, 3384517, 6777905, 9215844, 91786679, 6970020, 4970433 ####[facility] [address] [place] [address] MCHC (RBC) [Mass/Vol] 33.4 g/dL Normal 31.4-36.0 [facility] Comment on above: Performed By: #### 2 146620, 0134451, 0485731, 8228739, 87171501, 8820701, 4982016 ####[facility] [address] [place] [address] MCV (RBC) [Entitic vol] 85.5 fL Normal 80.0-100.0 [facility] Comment on above: Performed By: #### 2 627017, 6909841, 1020949, 3600169, 29403370, 3464329, 9354336 ####[facility] [address] [place] [address] Platelet mean volume (Bld) [Entitic vol] 7.0 fL Normal 6.4-10.8 [facility] Comment on above: Performed By: #### 2 672068, 4803344, 0697756, 2066004, 80362169, 7575207, 3054825 ####[facility] [address] [place] [address] Platelets (Bld) [#/Vol] 245.0 E9/L Normal 150.0-500. 0 [facility] Comment on above: Performed By: #### 2 474678, 9679891, 4512807, 1331765, 67033792, 2495329, 6066295 ####[facility] [address] [place] [address] RBC (Bld) [#/Vol] 4.8 E12/L Normal 4.3-5.9 [facility] Comment on above: Performed By: #### 2 929979, 7637664, 6509346, 3863367, 81614301, 8084750, 5817024 ####[facility] [address] [place] [address] WBC corrected for nucl RBC Auto (Bld) [#/Vol] 8.6 E9/L Normal 4.0-11.[address] [facility] Comment on above: Performed By: #### 2 046371, 3380815, 7560645, 0366410, 38661034, 6269555, 1009174 ####[facility] [address] [place] [address] CT Abdomen/Pelvis w/o Contra ston 06-07-2023 CT Abdomen/Pelvis w/o Contrast Normal [facility] Consent for Treatmenton 05-29 Consent for Treatment [id number] Normal [facility] Discharge Instructionson Discharge Instructions [id number] Normal [facility] ED Clinical Summaryon 2022 ED Clinical Summary Normal [facility] ED Note-Physicianon 06-07-20 ED Note-Physician Normal [facility] Comment on above: Result Comment: Elec tronically Signed By: Grey Putnam DO\.br\Date and Time Signed: 06/07/23 04:41 EST ED Patient Education Noteon 06-07-2023 ED Patient Education Note Normal [facility] ED Patient Summaryon 023 ED Patient Summary Normal [facility] Hep Func Panelon 06-07-2023 Bilirubin.indirect [Mass or moles/Vol] UTC Abnormal 0.1-0.9 [facility] Comment on above: Result Comment: Resu lt verified by Discern Rule. Performed result UTC (Unable to Calculate) was sent as an Alpha code due the inability to calculate a valid numeric value. Performed By: #### 2 182706, 3709689, 8904115, 3628713, 55377973, 0437894, 6831639 ####[facility] [address] [place] [address] Albumin [Mass/Vol] 4.0 g/dL Normal 3.3-5.0 [facility] Comment on above: Performed By: #### 2 097571, 4490439, 3838298, 8710947, 02302206, 6298176, 5569183 ####[facility] [address] [place] [address] Albumin/Globulin (S) [Mass conc ratio] 1.0 Low 1.1-2.2 [facility] Comment on above: Performed By: #### 2 058499, 5809985, 2062729, 0190743, 38489264, 9857304, 9417750 ####[facility] [address] [place] [address] ALP [Catalytic activity/Vol] 69 Int._Unit/L Normal 21-98 [facility] Comment on above: Performed By: #### 2 745559, 4344432, 4546470, 8917013, 31351795, 8076014, 1833511 ####[address] [address] ALT No additional P-5'-P [Catalytic activity/Vol] 21 Int._Unit/L Normal 6-46 [facility] Comment on above: Performed By: #### 2 008393, 5842471, 8899895, 3995923, 20978125, 6794641, 7794646 ####[facility] [address] [place] [address] AST [Catalytic activity/Vol] 25 Int._Unit/L Normal 5-43 [facility] Comment on above: Performed By: #### 2 127035, 9711913, 5727828, 6912650, 59906587, 1765607, 2119149 ####[facility] [address] [place] [address] Bilirubin [Mass/Vol] 0.5 mg/dL Normal 0.0-1.1 [facility] Comment on above: Performed By: #### 2 387699, 6286583, 7244335, 5649693, 46626608, 9317045, 7965682 ####[address] [place] [address] Globulin (S) [Mass/Vol] 3.8 g/dL Normal 1.4-4.0 [facility] Comment on above: Performed By: #### 2 664313, 4629260, 1332232, 3728653, 51285238, 1483382, 4166488 ####[facility] [address] [place] [address] Protein [Mass/Vol] 7.8 g/dL Normal 6.0-7.8 [facility] Comment on above: Performed By: #### 2 753619, 5496246, 2066207, 5615097, 41883528, 1694490, 3265770 ####[address] [address] Bilirubin.direct [Mass/Vol] mg/dL Normal 0.1-0.4 [facility] Comment on above: Performed By: #### 2 [id number], 6157430, 2294577, 8031747, 08586574, 4878316, 2923942 ####[address] [address] Lipase Levelon 06-07-2023 Lipase [Catalytic activity/Vol] 32 U/L Normal 13-58 [facility] Comment on above: Performed By: #### 2 553082, 7781690, 0976250, 9610003, 64909685, 6980437, 2408821 ####[address] [place] [address] Monitor Recordon 06-07-2023 Monitor Record [id number] Normal [facility] RAD - Preliminary Cat Scan R eporton 06-07-2023 RAD - Preliminary Cat Scan Report [id number] Normal [facility] Troponinon 06-07-2023 Troponin I.cardiac [Mass/Vol] 3.10 pg/mL Low 10.10-27.1 0 [facility] Comment on above: Result Comment: The 95% CI (Confidence Interval) PPV (Positive Predictive Value) for myocardial infarction in females is 38 pg/mL, in males 51 pg/mL. The results should be used in conjunction with clinical conditions of myocardial infarction.(Access High Sensitivity Troponin I Instructions For Use, Wilfrido Bertha, January 2018) Performed By: #### 2 964296, 3406985, 4615948, 2149252, 69886628, 5671238, 8492223 ####[address] [place] [address] U BetaHcg Qualon 06-07-2023 HCG.beta subunit (U) [Moles/Vol] Negative Normal [facility] Comment on above: Performed By: #### 2 [id number] ####[address] [address] UA With Cult Reflexon 2022 Bacteria LM Ql (Urine sed) TRACE Normal Trace [facility] Comment on above: Performed By: #### 1 7451458, 0653224 ####[address] [address] Bilirubin Ql (U) Negative Normal Negative [facility] Comment on above: Performed By: #### 1 8863235, 7608838 ####[address] [address] Clarity (U) CLOUDY Abnormal Clear [facility] Comment on above: Performed By: #### 1 3092650, 2614179 ####[address] [address] Color (U) YELLOW Normal Yellow [facility] Comment on above: Performed By: #### 1 0496899, 4773321 ####[address] [address] Epithelial cells.squamous LM.HPF (Urine sed) [#/Area] 0-2 Normal 0-2 [facility] Comment on above: Performed By: #### 1 6644114, 9160509 ####[facility] [address] [place] [address] Glucose Test strip (U) [Mass/Vol] Negative Normal Negative [facility] Comment on above: Performed By: #### 1 7640667, 0580015 ####[facility] [address] [place] [address] Hemoglobin Ql (U) 3+ Abnormal Negative [facility] Comment on above: Performed By: #### 1 3758920, 5563643 ####[facility] [address] [place] [address] Ketones (U) [Mass/Vol] Negative Normal Negative [facility] Comment on above: Performed By: #### 1 5389864, 2222281 ####[address] [address] [place].plasma/[place] .RBC (Bld) [Mass ratio] >75 Abnormal 0-3 [facility] Comment on above: Performed By: #### 1 2491564, 6413040 ####[address] [address] Mucus Ql (Urine sed) TRACE Normal Fish [facility] Comment on above: Performed By: #### 1 8700129, 7343616 ####[facility] [address] [place] [address] Nitrite Ql (U) Negative Normal Negative [facility] Comment on above: Performed By: #### 1 3359463, 7113453 ####[facility] [address] [place] [address] pH (U) 6.0 [pH] Invalid Interpretation Code 5.0-9.0 [facility] Comment on above: Performed By: #### 1 8586294, 6949948 ####[facility] [address] [place] [address] Protein (U) [Mass/Vol] Negative Normal Negative [facility] Comment on above: Performed By: #### 1 2733254, 1860698 ####[facility] [address] [place] [address] Specific gravity (U) [Rel density] 1.025 Invalid Interpretation Code 1.005-1.03 0 [facility] Comment on above: Performed By: #### 1 1246823, 8292499 ####[place] [address] Type of Urine collection method Clean Catch Normal [facility] Comment on above: Performed By: #### 1 5208202, 6455944 ####[address] [address] Urobilinogen Qn (U) 0.2 {Diaz'U}/dL Normal 0.0-1.0 [facility] Comment on above: Performed By: #### 1 6598034, 0033141 ####[place] [address] WBC Auto Ql (U) 1+ Abnormal Negative [facility] Comment on above: Performed By: #### 1 6747656, 2750906 ####[facility] [address] [place], [place] [address] WBC casts LM.LPF (Urine sed) [#/Area] 0-3 Normal [facility] Comment on above: Performed By: #### 1 9490742, 5266453 ####[address] [address] WBC LM.HPF (Urine sed) [#/Area] 0-5 Normal 0-5 [facility] Comment on above: Performed By: #### 1 7597382, 9127908 ####[address] [address] eGFRon 06-07-2023 GFR/1.73 sq M.predicted among non-blacks MDRD (S/P/Bld) [Vol rate/Area] 91 mL/min/1.73 m2 Normal >=59 [facility] Comment on above: Order Comment: Order added by Discern Expert. 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 Kidney failure is indicated at less than 15 mL/min/1.73m2. Performed By: #### 2 772168, 4190208, 2042599, 5936739, 73834489, 3912544, 7789473 ####[facility] [address] [place] [address] CHEMISTRYOrdered By: SYSTEM SYSTEM on 06-06-2023 Albumin [...] 91 mL/min/1.73 m2 Normal >=59mL/min /1.73 m2 [facility] Chem S Comment on above: Interpretive Data: [...] Sensitivity Troponin I Instructions For Use, Wilfrido [place], January 2018) Urea nitrogen [Mass/Vol] 21 mg/dL [...] [facility] HemeAutoSS HEMATOLOGYOrdered By: Clau Muñoz on 06-06-2023 Erythrocyte distribution width (RBC) [Ratio] 13.6 % Normal 10.9 - 14.2 % [facility] Hematocrit (Bld) [Volume fraction] 41.1 % Normal 34.0 - 46.0 % [facility]eAutoSS Hemoglobin (Bld) [Mass/Vol] 13.7 g/dL Normal 12.0 - 16.0 gm/dL [facility] MCH (RBC) [Entitic mass] 28.5 pg Normal 27.0 - 34.0 pg [facility] MCHC (RBC) [Mass/Vol] 33.4 g/dL Normal 31.4 - 36.0 gm/dL [facility] MCV (RBC) [Entitic vol] 85.5 fL Normal 80.0 - 100.0 fL [facility] Platelet mean volume (Bld) [Entitic vol] 7.0 fL Normal 6.4 - 10.8 fL [facility]Auto[facility] Platelets (Bld) [#/Vol] 245.0 E9/L Normal 150.0 - 500.0 E9/L [facility] RBC (Bld) [#/Vol] 4.8 E12/L Normal 4.3 - 5.9 E12/L [facility] WBC corrected for nucl RBC Auto (Bld) [#/Vol] 8.6 E9/L Normal 4.0 - 11.0 E9/L [facility]eAutoSS Laboratory - Microbiology an d Antimicrobial susceptibilityOrdered By: Gaby Reis on 06-06-2023 Bacteria identified Cx Nom (U) Continuing incubation [facility] SEROLOGYOrdered By: Alcira Muñoz on 06-06-2023 HCG.beta subunit (U) [Moles/Vol] Negative Normal [facility] URINALYSISOrdered By: Clau Muñoz on [...] PM) Normal Negative [facility] UA Auto SS [place].plasma/[place] .RBC (Bld) [Mass ratio] >75 /HPF Invalid [...] [Mass/Vol] Negative (06/06/23 11:09 PM) Normal Negative [facility] UA Auto SS Specific gravity (U) [Rel density] 1.025 *NA* (06/06/23 11:09 PM) Invalid Interpretation Code 1.005 - 1.030 [facility] UA Auto SS UA Spec Desc Clean Catch (06/06/23 11:09 PM) Normal [facility] UA Auto SS Urobilinogen Qn (U) 0.0418033 {Diaz'U}/dL Normal 0.0 - 1.0 EU/dL [facility] UA Auto SS WBC Auto Ql (U) 1+ *ABN* (06/06/23 11:09 PM) Invalid Interpretation Code Negative [facility] UA Auto SS WBC casts LM.LPF (Urine sed) [#/Area] 0-3 (06/06/23 11:09 PM) Normal [facility] UA Auto SS WBC LM.HPF (Urine sed) [#/Area] 0-5 /HPF Normal 0-5/HPF [facility] UA Auto SS MRI CERVICAL SPINE WO [...] Milady Blackburn MD 06/03/23 Final result Normal [facility] Basic Metabolic Profon 05-10 Potassium [Moles/Vol] 4.8 mmol/L Normal 3.7-5.3 [facility] Comment on above: Performed By: #### C DP, BMP #### [facility] [address] [place] [address] Administrator Pesticide: Raj Scott MD Anion gap [Moles/Vol] 11 mmol/L Normal 9-17 [facility] Comment on above: Performed By: #### C DP, BMP #### [facility] [address] [place] [address] Administrator Pesticide: Raj Scott MD BUN/CRE Ratio 20 Normal 9-20 [facility] Comment on above: Performed By: #### C DP, BMP #### [facility] [address] [place] [address] Administrator Pesticide: Raj Scott MD Calcium [Mass/Vol] 9.1 mg/dL Normal 8.6-10.4 [facility] Comment on above: Performed By: #### C DP, BMP #### [facility] [address] [place] [address] Administrator Pesticide: Raj Scott MD Chloride [Moles/Vol] 98 mmol/L Normal 98-107 [facility] Comment on above: Performed By: #### C DP, BMP #### [facility] [address] [place] [address] Administrator Pesticide: Raj Scott MD CO2 [Moles/Vol] 23 mmol/L Normal 20-31 [facility] Comment on above: Performed By: #### C DP, BMP #### [facility] [address] [place] [address] Administrator Pesticide: Raj Scott MD Creatinine [Mass/Vol] 0.8 mg/dL Normal 0.5-0.9 [facility] Comment on above: Performed By: #### C DP, BMP #### [facility] [address] [place] [address] Administrator Pesticide: Raj Scott MD GFR/1.73 sq M.predicted among non-blacks MDRD (S/P/Bld) [Vol rate/Area] mL/min/{1.73_m2} Normal >60 [facility] Comment on above: Result Comment: These results [...] Performed By: #### C DP, BMP #### [facility] [address] [place] [address] Administrator Pesticide: Raj Scott MD Glucose [Mass/Vol] 287 mg/dL High 70-99 [facility] Comment on above: Performed By: #### C DP, BMP #### [facility] [address] [place] [address] Administrator Pesticide: Raj Scott MD Sodium [Moles/Vol] 132 mmol/L Low 135-144 [facility] Comment on above: Performed By: #### C DP, BMP #### [facility] [address] [place] [address] Administrator Pesticide: Raj Scott MD Urea nitrogen [Mass/Vol] 16 mg/dL Normal 6-20 [facility] Comment on above: Performed By: #### C DP, BMP #### [facility] [address] [place] [address] Administrator Pesticide: Raj Scott MD CBC with Diffon 05-10-2023 Abs. Basophil 0.05 k/uL Normal 0.00-0.20 [facility] Comment on above: Performed By: #### C DP, BMP #### [facility] [address] [place], [place] [address] Administrator Pesticide: Raj Scott MD Abs.Imm.Granulocyte <0.03 Normal 0.00-0.30 [facility] Comment on above: Performed By: #### C DP, BMP #### [address] [place], [place] [address] Administrator Pesticide: Raj Scott MD Abs.Neutrophil (Seg) 2.37 k/uL Normal 1.50-8.10 [facility] Comment on above: Performed By: #### C DP, BMP #### [address] [place] [address] Administrator Pesticide: Raj Scott MD Basophils/100 WBC (Bld) 1 % Normal 0-2 [facility] Comment on above: Performed By: #### C DP, BMP #### [facility] [address] [place] [address] [address] [place], [place] [address] Administrator Pesticide: Rja Scott MD Eosinophils (Bld) [#/Vol] 0.21 10*3/uL Normal 0.00-0.44 [facility] Comment on above: Performed By: #### C DP, BMP #### [facility] [address] [place], [place] 3039483 Administrator Pesticide: Raj Scott MD Eosinophils/100 WBC (Bld) 4 % Normal 1-4 [facility] Comment on above: Performed By: #### C DP, BMP #### [facility] [address] [place], [place] 437[address]83 Administrator Pesticide: Raj Scott MD Erythrocyte distribution width (RBC) [Ratio] 11.6 % Low 11.8-14.4 [facility] Comment on above: Performed By: #### C DP, BMP #### [facility] [address] [place], [facility] Administrator Pesticide: Raj Scott MD Hematocrit (Bld) [Volume fraction] 38.6 % Normal 36.3-47.1 [facility] Comment on above: Performed By: #### C DP, BMP #### [address] [place], [place] 5983883 Administrator Pesticide: Raj Scott MD Hemoglobin (Bld) [Mass/Vol] 12.9 g/dL Normal 11.9-15.1 [facility] Comment on above: Performed By: #### C DP, BMP #### [address] [place], [place] 2320583 Administrator Pesticide: Raj Scott MD Immature granulocytes/100 WBC (Bld) 0 % Normal 0 [facility] Comment on above: Performed By: #### C DP, BMP #### [facility] [address] [place], [facility]83 Administrator Pesticide: Raj Scott MD Lymphocytes (Bld) [#/Vol] 1.82 10*3/uL Normal 1.10-3.70 [facility] Comment on above: Performed By: #### C DP, BMP #### [facility] [address] [place] [address] Administrator Pesticide: Raj Scott MD Lymphocytes/100 WBC (Bld) 37 % Normal 24-43 [facility] Comment on above: Performed By: #### C DP, BMP #### [facility] [address] [place] 9114783 Administrator Pesticide: Raj Scott MD MCH (RBC) [Entitic mass] 29.2 pg Normal 25.2-33.5 [facility] Comment on above: Performed By: #### C DP, BMP #### [facility] [address] [place], [place] 9897283 Administrator Pesticide: Raj Scott MD MCHC (RBC) [Mass/Vol] 33.4 g/dL Normal 28.4-34.8 [facility] Comment on above: Performed By: #### C DP, BMP #### [facility] [address] [place] [address] Administrator Pesticide: Raj Scott MD MCV (RBC) [Entitic vol] 87.3 fL Normal 82.6-102.9 [facility] Comment on above: Performed By: #### C DP, BMP #### [address] [place], [facility] Administrator Pesticide: Raj Scott MD Monocytes (Bld) [#/Vol] 0.42 10*3/uL Normal 0.10-1.20 [facility] Comment on above: Performed By: #### C DP, BMP #### [address] [place], [place] 4124883 Administrator Pesticide: Raj Scott MD Monocytes/100 WBC (Bld) 9 % Normal 3-12 [facility] Comment on above: Performed By: #### C DP, BMP #### [facility] [address] [place], [place] 4034283 Administrator Pesticide: Raj Scott MD Neutrophil (Seg) 49 % Normal 36-65 [facility] Comment on above: Performed By: #### C DP, BMP #### [facility] [address] [place], [place] 5476083 Administrator Pesticide: Raj Scott MD NRBC Automated 0.0 per 100 WBC Normal 0.0 [facility] Comment on above: Performed By: #### C DP, BMP #### [address] [place], [place] 8784283 Administrator Pesticide: Raj Scott MD Platelet mean volume (Bld) [Entitic vol] 9.3 fL Normal 8.1-13.5 [facility] Comment on above: Performed By: #### C DP, BMP #### [address] [place], [place] 8050883 Administrator Pesticide: Raj Scott MD Platelets (Bld) [#/Vol] 201 10*3/uL Normal 138-453 [facility] Comment on above: Performed By: #### C DP, BMP #### [address] [place] [address] Administrator Pesticide: Raj Scott MD RBC (Bld) [#/Vol] 4.42 10*6/uL Normal 3.95-5.11 [facility] Comment on above: Performed By: #### C DP, BMP #### [address] [place] [address] Administrator Pesticide: Raj Scott MD WBC (Bld) [#/Vol] 4.9 10*3/uL Normal 3.5-11.3 [facility] Comment on above: Performed By: #### C DP, BMP #### [address] [place] [address] Administrator Pesticide: Raj Scott MD CT ABDOMEN PELVIS WO [...] Anum Briscoe MD 05/10/23 Final result Normal [facility] Urinalysis w/ Microon 2022 Bacteria 1+ Abnormal NONE [facility] Comment on above: Performed By: #### U AMIC #### [facility] [address] [place] [address] [place] [address] Administrator Pesticide: Raj Scott MD Epithelial cells LM Ql (Urine sed) 5 TO 10 Normal 0-25 [facility] Comment on above: Performed By: #### U AMIC #### [facility] [address] [place] [address] Administrator Pesticide: Raj Scott MD Mucus Strands TRACE Abnormal NONE [facility] Comment on above: Performed By: #### U AMIC #### [facility] [address] [place] [address] Administrator Pesticide: Raj Scott MD Urine RBC's 0 TO 2 Normal 0-2 [facility] Comment on above: Performed By: #### U AMIC #### [facility] [address] [place], [place] 2628083 Administrator Pesticide: Raj Scott MD Urine WBC's 2 TO 5 Normal 0-5 [facility] Comment on above: Performed By: #### U AMIC #### [facility] [address] [place], [place] 8609383 Administrator Pesticide: Raj Scott MD Bilirubin, SemiQt,Ur Negative Normal NEG [facility] Comment on above: Performed By: #### U AMIC #### [facility] [address] [place], [place] 8921683 Administrator Pesticide: Raj Scott MD Blood, Urine Negative Normal NEG [facility] Comment on above: Performed By: #### U AMIC #### [facility] [address] [place], [place] [phone] Administrator Pesticide: Raj Scott MD Clarity (U) Clear Normal CLEAR [facility] Comment on above: Performed By: #### U AMIC #### [address] [place], [place] 7811683 Administrator Pesticide: Raj Scott MD Color (U) Yellow Normal YEL [facility] Comment on above: Performed By: #### U AMIC #### [facility] [address] [place], [place] [id number] Administrator Pesticide: Raj Scott MD Glucose Ql (U) 2+ mg/dL Abnormal NEG [facility] Comment on above: Performed By: #### U AMIC #### [facility] [address] [place], [place] 5521383 Administrator Pesticide: Raj Scott MD Ketones Ql (U) Negative Normal NEG [facility] Comment on above: Performed By: #### U AMIC #### [facility] [address] [place], [place] 8319383 Administrator Pesticide: Raj Scott MD Leukocyte esterase Test strip Ql (U) Negative Normal NEG [facility] Comment on above: Performed By: #### U AMIC #### [facility] [address] [place], [place] 5790383 Administrator Pesticide: Raj Scott MD Nitrite,Ur Negative Normal NEG [facility] Comment on above: Performed By: #### U AMIC #### [facility] [address] [place], [place] 7438783 Administrator Pesticide: Raj Scott MD PH,Ur 6.0 Normal 5.0-9.0 [facility] Comment on above: Performed By: #### U AMIC #### [facility] [address] [place] [address] [address] [place], [place] 1030483 Administrator Pesticide: Raj Scott MD Protein Ql (U) Negative Normal NEG [facility] Comment on above: Performed By: #### U AMIC #### [facility] [address] [place] [address] Dr[address] [place], [place] 3219383 Administrator Pesticide: Raj Scott MD Spec. Dent,Ur 1.025 High 1.010-1.02 0 [facility] Comment on above: Performed By: #### U AMIC #### [facility] [address] [place] [address] Dr[address] [place], [place] 7442683 Administrator Pesticide: Raj Scott MD Urobilinogen,Ur Normal Normal 0.0-1.0 [facility] Comment on above: Performed By: #### U AMIC #### [facility] [address] [place] [address] Administrator Pesticide: Raj Scott MD Glucose Glucometer (dC) [M ass/Vol]Ordered By: Braulio Dukes on 04-03-2023 Glucose [Mass/Vol] 244 mg/dL [facility] Comment on above: Random Glucose Refer ence Range is dependent on time and content of last meal. Glucose of more than 200 mg/dL in a nonstressed, ambulatory subject supports the diagnosis of Diabetes Mellitus. Glucose Poct Glucometerson 1 Commemt1 Glu2: Cleaned Meter [facility] Comment on above: Result Comment: PERF ORMED BY:[address] [address] [address] [place], [place] [phone] MEDICAL DIRECTORNATALIA MIKE M.D. Performed By: #### G LULS ####Point of Care testing, Glucose [Mass/Vol] 244 mg/dL Normal [facility] Comment on above: Result Comment: [place] om Glucose Reference Range is dependent on time and content of last meal. Glucose of more than 200 mg/dL in a nonstressed, ambulatory subject supports the diagnosis of Diabetes Mellitus. Performed By: #### G LULS ####Point of Care testing, Commemt1 Glu2: Cleaned Meter [facility] Comment on above: Result Comment: PERF ORMED BY:[address] [address] [address] [place]OSS[place]jelV[place], [place] [phone] MEDICAL DIRECTORNATALIA MIKE M.D. Performed By: #### G LULS ####Point of Care testing, Glucose [Mass/Vol] 267 mg/dL Normal [facility] Comment on above: Result Comment: [place] om Glucose Reference Range is dependent on time and content of last meal. Glucose of more than 200 mg/dL in a nonstressed, ambulatory subject supports the diagnosis of Diabetes Mellitus. Performed By: #### G LULS ####Point of Care testing, No Panel InformationOrdered By: Braulio Dukes on 04-03-2023 Bedside Glucose Comment Glu2: cleaned meter [facility] ECG 12 lead ECGon 04-02-2023 ECG 12 lead ECG Normal [facility] Glucose Poct Glucometerson 1 Glucose [Mass/Vol] 209 mg/dL Normal [facility] Comment on above: Result Comment: [place] om Glucose Reference Range is dependent on time and content of last meal. Glucose of more than 200 mg/dL in a nonstressed, ambulatory subject supports the diagnosis of Diabetes Mellitus.PERFORMED BY:[address] [place], [place] [phone] MEDICAL RONAN MIKE M.D. Performed By: #### G LULS ####Point of Care testing, Commemt1 Glu2: Cleaned Meter [facility] Comment on above: Result Comment: PERF ORMED BY:[place] [address] [address] [place], [place] [phone] MEDICAL DIRECTORNATALIA MIKE M.D. Performed By: #### G LULS ####Point of Care testing, Glucose [Mass/Vol] 298 mg/dL Normal [facility] Comment on above: Result Comment: [place] om Glucose Reference Range is dependent on time and content of last meal. Glucose of more than 200 mg/dL in a nonstressed, ambulatory subject supports the diagnosis of Diabetes Mellitus. Performed By: #### G LULS ####Point of Care testing, Commemt1 Glu2: Cleaned Meter [facility] Comment on above: Result Comment: PERF ORMED BY:[place] [address] [address] [place], [place] [phone] MEDICAL RONAN MIKE M.D. Performed By: #### G LULS ####Point of Care testing, Glucose [Mass/Vol] 238 mg/dL Normal [facility] Comment on above: Result Comment: [place] om Glucose Reference Range is dependent on time and content of last meal. Glucose of more than 200 mg/dL in a nonstressed, ambulatory subject supports the diagnosis of Diabetes Mellitus. Performed By: #### G LULS ####Point of Care testing, Glucose Poct Glucometerson 1 Commemt1 Glu2: Cleaned Meter [facility] Comment on above: Result Comment: PERF ORMED BY:[address] [address] [place], [place] [phone] MEDICAL RONAN MIKE M.D. Performed By: #### G LULS ####Point of Care testing, Glucose [Mass/Vol] 218 mg/dL Normal [facility] Comment on above: Result Comment: [place] om Glucose Reference Range is dependent on time and content of last meal. Glucose of more than 200 mg/dL in a nonstressed, ambulatory subject supports the diagnosis of Diabetes Mellitus. Performed By: #### G LULS ####Point of Care testing, Commemt1 Glu2: Cleaned Meter [facility] Comment on above: Result Comment: PERF ORMED BY:[address] [address] [place], [place] [phone] MEDICAL DIRECTORNATALIA MIKE M.D. Performed By: #### G LULS ####Point of Care testing, Glucose [Mass/Vol] 250 mg/dL Normal [facility] Comment on above: Result Comment: [place] om Glucose Reference Range is dependent on time and content of last meal. Glucose of more than 200 mg/dL in a nonstressed, ambulatory subject supports the diagnosis of Diabetes Mellitus. Performed By: #### G LULS ####Point of Care testing, Commemt1 Glu2: CLEANED [facility] Comment on above: Result Comment: PERF ORMED BY:[address] [address] [place] [place], [place] [phone] MEDICAL RONAN MIKE M.D. Performed By: #### G LULS ####Point of Care testing, Glucose [Mass/Vol] 237 mg/dL Normal [facility] Comment on above: Result Comment: [place] om Glucose Reference Range is dependent on time and content of last meal. Glucose of more than 200 mg/dL in a nonstressed, ambulatory subject supports the diagnosis of Diabetes Mellitus. Performed By: #### G LULS ####Point of Care testing, Commemt1 Glu2: Cleaned Meter [facility] Comment on above: Result Comment: PERF ORMED BY:[address] [address] [place] [place], [place] [phone] MEDICAL DIRECTORNATALIA SimmonsD. Performed By: #### G LULS ####Point of Care testing, Glucose [Mass/Vol] 244 mg/dL Normal [facility] Comment on above: Result Comment: [place] Glucose Reference Range is dependent on time and content of last meal. Glucose of more than 200 mg/dL in a nonstressed, ambulatory subject supports the diagnosis of Diabetes Mellitus. Performed By: #### G LULS ####Point of Care testing, Glucose Poct Glucometerson 1 Commemt1 Glu2: Cleaned Meter Normal [facility] Comment on above: Result Comment: PERF ORMED BY:[address] [address] [place] [place], [place] [phone] MEDICAL RONAN MIKE M.D. Performed By: #### G LULS ####Point of Care testing, Glucose [Mass/Vol] 158 mg/dL Normal [facility] Comment on above: Result Comment: [place] Glucose Reference Range is dependent on time and content of last meal. Glucose of more than 200 mg/dL in a nonstressed, ambulatory subject supports the diagnosis of Diabetes Mellitus. Performed By: #### G LULS ####Point of Care testing, Glucose [Mass/Vol] 149 mg/dL Normal [facility] Comment on above: Result Comment: [place] Glucose Reference Range is dependent on time and content of last meal. Glucose of more than 200 mg/dL in a nonstressed, ambulatory subject supports the diagnosis of Diabetes Mellitus.PERFORMED BY:[address] [place] [place], [place] [phone] MEDICAL RONAN MIKE M.D. Performed By: #### G LULS ####Point of Care testing, Glucose [Mass/Vol] 185 mg/dL Normal [facility] Comment on above: Result Comment: [place] Glucose Reference Range is dependent on time and content of last meal. Glucose of more than 200 mg/dL in a nonstressed, ambulatory subject supports the diagnosis of Diabetes Mellitus.PERFORMED BY:[address] [address] [place], [place] [phone] MEDICAL RONAN MIKE M.D. Performed By: #### G LULS ####Point of Care testing, Glucose [Mass/Vol] 210 mg/dL Normal [facility] Comment on above: Result Comment: [place] om Glucose Reference Range is dependent on time and content of last meal. Glucose of more than 200 mg/dL in a nonstressed, ambulatory subject supports the diagnosis of Diabetes Mellitus.PERFORMED BY:[address] [place], [place] [phone] MEDICAL DIRECTORNATALIA MIKE M.D. Performed By: #### G LULS ####Point of Care testing, Glucose Poct Glucometerson 1 Glucose [Mass/Vol] 108 mg/dL Normal [facility] Comment on above: Result Comment: [place] om Glucose Reference Range is dependent on time and content of last meal. Glucose of more than 200 mg/dL in a nonstressed, ambulatory subject supports the diagnosis of Diabetes Mellitus.PERFORMED BY:[address] [place], [place] [phone] MEDICAL DIRECTORNATALIA MIKE M.D. Performed By: #### G LULS ####Point of Care testing, Glucose [Mass/Vol] 165 mg/dL Normal [facility] Comment on above: Result Comment: [place] om Glucose Reference Range is dependent on time and content of last meal. Glucose of more than 200 mg/dL in a nonstressed, ambulatory subject supports the diagnosis of Diabetes Mellitus.PERFORMED BY:[address] [place], [place] [phone] MEDICAL RONAN MIKE M.D. Performed By: #### G LULS ####Point of Care testing, Glucose [Mass/Vol] 190 mg/dL Normal [facility] Comment on above: Result Comment: [place] om Glucose Reference Range is dependent on time and content of last meal. Glucose of more than 200 mg/dL in a nonstressed, ambulatory subject supports the diagnosis of Diabetes Mellitus.PERFORMED BY:[address] [place] [phone] MEDICAL DIRECTORNATALIA MIKE M.D. Performed By: #### G LILLY ####Point of Care testing, Glucose [Mass/Vol] 223 mg/dL Normal [facility] Comment on above: Result Comment: [facility] Glucose Reference Range is dependent on time and content of last meal. Glucose of more than 200 mg/dL in a nonstressed, ambulatory subject supports the diagnosis of Diabetes Mellitus.PERFORMED BY:[address] [place], [place] [phone] MEDICAL DIRECTORNATALIA MIKE M.D. Performed By: #### G LILLY ####Point of Care testing, Cholesterol [Mass/volume] in Serum or PlasmaOrdered By: Braulio Dukes on 03-29-2023 Cholesterol [Mass/Vol] 361 mg/dL 140-[address] [facility] Comment on above: Chol less than 200 m g/dl low riskChol 201-239 mg/dl borderline riskChol 240 mg/dl and greater high risk Cholesterol in LDL Calc [Mas s/Vol]Ordered By: Braulio Dukes on 03-29-2023 Cholesterol in LDL [Mass/Vol] 246 mg/dL 0-100 [facility] Comment on above: LDL ATP III CLASSIFI CATIONLDL less than 100 mg/dL OptimalLDL 100-129 mg/dL Near or above optimalLDL 130-159 mg/dL Borderline highLDL 160-189 mg/dL HighLDL greater than 189 mg/dL Very high Cholesterol in VLDL Calc [Ma ss/Vol]Ordered By: Braulio Dukes on 03-29-2023 Cholesterol in VLDL [Mass/Vol] 62 mg/dL [facility] ECG 12 lead ECGon 03-29-2023 ECG 12 lead ECG Normal [facility] Glucose Poct Glucometerson 1 Commemt1 Glu2: Cleaned Meter Normal [facility] Comment on above: Result Comment: PERF ORMED BY:[address] [place] [place], [place] [phone] MEDICAL DIRECTORNATALIA MIKE M.D. Performed By: #### G LULS ####Point of Care testing, Glucose [Mass/Vol] 156 mg/dL Normal [facility] Comment on above: Result Comment: [place] om Glucose Reference Range is dependent on time and content of last meal. Glucose of more than 200 mg/dL in a nonstressed, ambulatory subject supports the diagnosis of Diabetes Mellitus. Performed By: #### G LULS ####Point of Care testing, Commemt1 Glu2: Cleaned Meter [facility] Comment on above: Result Comment: PERF ORMED BY:[address] [place] [place], [place] [phone] MEDICAL DIRECTORNATALIA MIKE M.D. Performed By: #### G LULS ####Point of Care testing, Glucose [Mass/Vol] 216 mg/dL Normal [facility] Comment on above: Result Comment: [place] om Glucose Reference Range is dependent on time and content of last meal. Glucose of more than 200 mg/dL in a nonstressed, ambulatory subject supports the diagnosis of Diabetes Mellitus. Performed By: #### G LULS ####Point of Care testing, Commemt1 Glu2: Cleaned Meter [facility] Comment on above: Result Comment: PERF ORMED BY:[address] [place] [place], [place] [phone] MEDICAL DIRECTORNATALIA MIKE M.D. Performed By: #### G LULS ####Point of Care testing, Glucose [Mass/Vol] 310 mg/dL Normal [facility] Comment on above: Result Comment: [place] om Glucose Reference Range is dependent on time and content of last meal. Glucose of more than 200 mg/dL in a nonstressed, ambulatory subject supports the diagnosis of Diabetes Mellitus. Performed By: #### G LULS ####Point of Care testing, Commemt1 Glu2: Cleaned Meter [facility] Comment on above: Result Comment: PERF ORMED BY:[address] [place] [place], [place] [phone] MEDICAL DIRECTORNATALIA MIKE M.D. Performed By: #### G LILLY ####Point of Care testing, Glucose [Mass/Vol] 189 mg/dL Normal [facility] Comment on above: Result Comment: [place] Glucose Reference Range is dependent on time and content of last meal. Glucose of more than 200 mg/dL in a nonstressed, ambulatory subject supports the diagnosis of Diabetes Mellitus. Performed By: #### G LILLY ####Point of Care testing, Lipid Panelon 03-29-2023 Cholesterol [Mass/Vol] 361 mg/dL High 140-[address] [facility] Comment on above: Result Comment: Chol less than 200 mg/dl low risk Chol 201-239 mg/dl borderline risk Chol 240 mg/dl and greater high risk Performed By: #### L IPID, [id number], TSH3 wRFLX ####[facility] [place] [address] [facility] Cholesterol in HDL [Mass/Vol] 52 mg/dL Normal 23-92 [facility] Comment on above: Result Comment: HDL CHOL ATP-III CLASSIFICATION Cardiovascular Risk HDL > or equal to 60 mg/dL LOW HDL < 40 mg/dL HIGH Performed By: #### L IPID, [id number], TSH3 wRFLX ####[facility] [place] [address] [facility] Cholesterol.total/Chol esterol in HDL [Mass ratio] 6.9 {ratio} Normal <5.0 [facility] Comment on above: Performed By: #### L IPID, [id number], TSH3 wRFLX ####[facility] [id number] [place] [address] [facility] LDL Cholesterol,Calculated 246 mg/dL High 0-100 [facility] Comment on above: Result Comment: LDL ATP III CLASSIFICATION LDL less than 100 mg/dL Optimal LDL 100-129 mg/dL Near or above optimal LDL 130-159 mg/dL Borderline high LDL 160-189 mg/dL High LDL greater than 189 mg/dL Very high Performed By: #### L IPID, [id number], TSH3 wRFLX ####[facility] [id number] [place] [id number] [facility] Triglyceride w/Reflex 313 mg/dL High 0-149 [facility] Comment on above: Result Comment: TRIG ATP III CLASSIFICATION TRIG less than 150 mg/dL Normal TRIG 150-199 mg/dL Borderline high TRIG 200-500 mg/dL High TRIG greater than 500 mg/dL Very high Standard traceable to the Center for Disease Conrtrol and Prevention (CDC) test method. Performed By: #### L IPID, [id number], TSH3 wRFLX ####[facility] [address] VLDL CHOLESTEROL 62 mg/dL Normal [facility] Comment on above: Performed By: #### L IPID, [id number], TSH3 wRFLX ####[facility] Serum or plasma high density lipoprotein (HDL) cholesterol measurementOrdered By: Braulio Dukes on 03-29-2023 Cholesterol in HDL [Mass/Vol] 52 mg/dL 23-92 [facility] Comment on above: HDL CHOL ATP-III CLA SSIFICATION Cardiovascular RiskHDL > or equal to 60 mg/dL LOWHDL < 40 mg/dL HIGH Serum or plasma total choles terol/high density lipoprotein (HDL) cholesterol mass ratOrdered By: Braulio Dukes on 03-29-2023 Cholesterol.total/Chol esterol in HDL [Mass ratio] 6.9 {ratio} <5.0 [facility] Thyroid Stim Hormone w/Rflxo n 03-29-2023 Thyroid Stim Hormone w/Rflx 4.83 u[iU]/mL Normal 0.45-5.33 [facility] Comment on above: Performed By: #### L IPID, [id number], TSH3 wRFLX ####[facility] [address] Thyrotropin [Units/volume] i n Serum or PlasmaOrdered By: Braulio Dukes on 03-29-2023 TSH Qn 4.83 m[IU]/L 0.45-5.33 [facility] Triglyceride [Mass/volume] i n Serum or PlasmaOrdered By: Braulio Dukes on 03-29-2023 Triglyceride [Mass/Vol] 313 mg/dL 0-149 [facility] Comment on above: TRIG ATP III CLASSIF ICATIONTRIG less than 150 mg/dL NormalTRIG 150-199 mg/dL Borderline highTRIG 200-500 mg/dL High TRIG greater than 500 mg/dL Very highStandard traceable to the Center for Disease Conrtrol and Prevention (CDC) test method. Vitamin D 25 Hydroxy Totalon 03-29-2023 Vitamin D 25 Hydroxy Total 20.4 ng/mL Low 30-100 [facility] Comment on above: Result Comment: [place] MIN D STATUS 25([place])VITAMIN D RANGE (ng/mL) Deficient <20 Insufficient 20 to <30 Sufficient 30 to 100 Reference: Emi Toney, Christopher MENJIVAR, et al. Evaluation,treatment, and prevention of vitamin D deficiency; an Endocrine Society clinical practice guideline. JCEM. 2010; 96(7):191-.PERFORMED BY:[facility] [place], [place] [phone] MEDICAL DIRECTORNATALIA IMKE M.D. Performed By: #### L IPID, [id number], TSH3 wRFLX ####[facility] [place] [address] [facility] Vitamin D+Metabolites [Mass/ volume] in Serum or PlasmaOrdered By: Braulio Dukes on 03-29-2023 Vitamin D+Metabolites [Mass/Vol] 20.4 ng/mL 30-100 [facility] Comment on above: VITAMIN D STATUS 25( [place])VITAMIN D RANGE (ng/mL) Deficient <20 Insufficient 20 to <30Sufficient 30 to 100Reference: Emi Toney, Christopher MENJIVAR, et al. Evaluation,treatment, and prevention of vitamin D deficiency; an Endocrine Society clinical practice guideline. JCEM. 2010; 96(7):1911-. Glucose Glucometer (BldC) [M ass/Vol]Ordered By: Braulio Dukes on 01-31-2023 Glucose [Mass/Vol] 240 mg/dL [facility] Glucose Poct Glucometerson 0 01-31-2023 Commemt1 Glu2: Cleaned Meter Normal [facility] Comment on above: Result Comment: PERF ORMED BY:[address] [place], [place] [phone] MEDICAL DIRECTORNATALIA MIKE M.D. Performed By: #### G LULS ####Point of Care testing, Glucose [Mass/Vol] 240 mg/dL Normal [facility] Comment on above: Result Comment: [place] Glucose Reference Range is dependent on time and content of last meal. Glucose of more than 200 mg/dL in a nonstressed, ambulatory subject supports the diagnosis of Diabetes Mellitus. Performed By: #### G LULS ####Point of Care testing, No Panel InformationOrdered By: Braulio Dukes on 01-31-2023 Glu2: cleaned meter [facility] Complete Blood Count Auto Di ffon 01-29-2023 Basophils (Bld) [#/Vol] 0.1 10*3/uL Normal 0.0-0.2 [facility] Comment on above: Result Comment: PERF ORMED BY:[id number] [place], [place] [phone] MEDICAL DIRECTORNATALIA MIKE M.D. Performed By: #### C MP, CBC ####[address] [address] [place] Basophils/100 WBC (Bld) 0.9 % Normal . [facility] Comment on above: Performed By: #### C MP, CBC ####[address] [address] [place] Eosinophils (Bld) [#/Vol] 0.8 10*3/uL High 0.0-0.45 [facility] Comment on above: Performed By: #### C MP, CBC ####[address] [address] [place] Eosinophils/100 WBC (Bld) 9.4 % Normal . [facility] Comment on above: Performed By: #### C MP, CBC ####[address] Erythrocyte distribution width (RBC) [Ratio] 13.0 % Normal 11.9-15.3 [facility] Comment on above: Performed By: #### C MP, CBC ####[address] Hematocrit (Bld) [Volume fraction] 37.8 % Normal 34.0-46.4 [facility] Comment on above: Performed By: #### C MP, CBC ####[address] Hemoglobin (Bld) [Mass/Vol] 13.0 g/dL Normal 11.8-15.4 [facility] Comment on above: Performed By: #### C MP, CBC ####[address] Lymphocytes (Bld) [#/Vol] 2.5 10*3/uL Normal 1.00-4.8 [facility] Comment on above: Performed By: #### C MP, CBC ####[address] Lymphocytes/100 WBC (Bld) 31.0 % Normal . [facility] Comment on above: Performed By: #### C MP, CBC ####[address] MCH (RBC) [Entitic mass] 29.4 pg Normal 24.7-34.3 [facility] Comment on above: Performed By: #### C MP, CBC ####[address] MCV (RBC) [Entitic vol] 85.5 fL Normal 80-100 [facility] Comment on above: Performed By: #### C MP, CBC ####[address] Mean Corpuscular HGB Conc 34.4 g/dL Normal 32.0-35.0 [facility] Comment on above: Performed By: #### C MP, CBC ####[address] Monocytes (Bld) [#/Vol] 0.7 10*3/uL Normal 0.0-0.8 [facility] Comment on above: Performed By: #### C MP, CBC ####[place] [id number] [facility] Monocytes/100 WBC (Bld) 18.34 % Normal 0.00-20.00 [facility] Comment on above: Performed By: #### C MP, CBC ####[address] Monocytes/100 WBC (Bld) 8.9 % Normal . [facility] Comment on above: Performed By: #### C MP, CBC ####[address] Neutrophils (Bld) [#/Vol] 4.0 10*3/uL Normal 1.8-7.7 [facility] Comment on above: Performed By: #### C MP, CBC ####[place] [id number] [facility] Neutrophils/100 WBC (Bld) 49.8 % Normal . [facility] Comment on above: Performed By: #### C MP, CBC ####[address] NRBC% 0.1 /100{WBC} Normal 0-0.5 [facility] Comment on above: Performed By: #### C MP, CBC ####[place] [id number] [facility] Platelet mean volume (Bld) [Entitic vol] 6.6 fL Normal 6.3-10.7 [facility] Comment on above: Performed By: #### C MP, CBC ####[place] [id number] [facility] Platelets (Bld) [#/Vol] 202 10*3/uL Normal 150-450 [facility] Comment on above: Performed By: #### C MP, CBC ####[place] [id number] [facility] RBC (Bld) [#/Vol] 4.42 10*6/uL Normal 3.60-5.00 [facility] Comment on above: Performed By: #### C MP, CBC ####[place] [id number] [facility] WBC (Bld) [#/Vol] 8.1 10*3/uL Normal 3.8-11.6 [facility] Comment on above: Performed By: #### C MP, CBC ####[place] [id number] [facility] Comprehensive Metabolic Pane loco 01-29-2023 Albumin [Mass/Vol] 4.0 g/dL Normal 3.5-5.7 [facility] Comment on above: Performed By: #### C MP, CBC ####[place] [id number] [facility] Albumin/Globulin [Mass ratio] 1.2 {ratio} Normal [facility] Comment on above: Performed By: #### C MP, CBC ####[place] [id number] [facility] ALP [Catalytic activity/Vol] 73 U/L Normal 34-104 [facility] Comment on above: Performed By: #### C MP, CBC ####[place] [id number] [facility] ALT [Catalytic activity/Vol] 23 U/L Normal 7-52 [facility] Comment on above: Performed By: #### C MP, CBC ####[place] [id number] [facility] Anion gap [Moles/Vol] 9.0 mmol/L Normal 6.0-15.0 [facility] Comment on above: Performed By: #### C MP, CBC ####[place] [id number] [facility] AST [Catalytic activity/Vol] 16 U/L Normal 13-39 [facility] Comment on above: Performed By: #### C MP, CBC ####[place] [address] [place] [address] [facility] Bilirubin [Mass/Vol] 0.3 mg/dL Normal 0.3-1.0 [facility] Comment on above: Performed By: #### C MP, CBC ####[place] [place] [address] [facility] Calcium [Mass/Vol] 9.2 mg/dL Normal 8.6-10.3 [facility] Comment on above: Performed By: #### C MP, CBC ####[place] [address] [place] [address] [facility] Chloride [Moles/Vol] 104 mmol/L Normal 98-107 [facility] Comment on above: Performed By: #### C MP, CBC ####[address] [address] [facility] CO2 [Moles/Vol] 31.8 mmol/L High 21.0-31.0 [facility] Comment on above: Performed By: #### C MP, CBC ####[address] [address] [place] Creatinine [Mass/Vol] 0.72 mg/dL Normal 0.60-1.20 [facility] Comment on above: Performed By: #### C MP, CBC ####[address] [address] [place] Creatinine Clr Calc Pharmacy 131.06 [facility] Comment on above: Result Comment: PERF ORMED BY:[address] [place], [place] [phone] MEDICAL RONAN MIKE M.D. Performed By: #### C MP, CBC ####[place] [place] [address] [place] GFR/1.73 sq M.predicted MDRD (S/P/Bld) [Vol rate/Area] mL/min/{1.73_m2} [facility] Comment on above: Performed By: #### C MP, CBC ####[facility] [place] [address] [facility] Globulin (S) [Mass/Vol] 3.3 g/dL Normal [facility] Comment on above: Performed By: #### C MP, CBC ####[facility] [place] [address] [facility] Glucose [Mass/Vol] 84 mg/dL Normal 70-100 [facility] Comment on above: Result Comment: [facility] Glucose Reference Range is dependent on time and content of last meal. Glucose of more than 200 mg/dL in a nonstressed, ambulatory subject supports the diagnosis of Diabetes Mellitus. ADA recommended reference range Performed By: #### C MP, CBC ####[place] [place] [address] [facility] Potassium [Moles/Vol] 3.8 mmol/L Normal 3.5-5.1 [facility] Comment on above: Performed By: #### C MP, CBC ####[address] [address] [facility] Protein [Mass/Vol] 7.3 g/dL Normal 6.4-8.9 [facility] Comment on above: Performed By: #### C MP, CBC ####[address] [address] [facility] Sodium [Moles/Vol] 141 mmol/L Normal 136-145 [facility] Comment on above: Performed By: #### C MP, CBC ####[address] [address] [facility] Urea nitrogen [Mass/Vol] 18 mg/dL Normal 7-25 [facility] Comment on above: Performed By: #### C MP, CBC ####[address] [address] [facility] ECG 12 lead ECGon 01-29-2023 ECG 12 lead ECG Normal [facility] Ethyl Alcohol Profileon Ethanol [Mass/Vol] mg/dL Normal [facility] Comment on above: Performed By: #### E KAYA ####[facility] [place] [address] [place] Percent Ethanol Not performed Normal [facility] Comment on above: Result Comment: PERF ORMED BY:[place] [address] [place], [place] [phone] MEDICAL RONAN MIKE M.D. Performed By: #### E KAYA ####[address] [address] [facility] [facility] Glucose Poct Glucometerson 0 01-29-2023 Glucose [Mass/Vol] 214 mg/dL Normal [facility] Comment on above: Result Comment: [place] Glucose Reference Range is dependent on time and content of last meal. Glucose of more than 200 mg/dL in a nonstressed, ambulatory subject supports the diagnosis of Diabetes Mellitus.PERFORMED BY:[address] [place], [place] [phone] MEDICAL RONAN MIKE M.D. Performed By: #### G LULS ####Point of Care testing, Glucose [Mass/Vol] 190 mg/dL Normal [facility] Comment on above: Result Comment: [place] Glucose Reference Range is dependent on time and content of last meal. Glucose of more than 200 mg/dL in a nonstressed, ambulatory subject supports the diagnosis of Diabetes Mellitus.PERFORMED BY:[address] [place], [place] [phone] MEDICAL RONAN MIKE M.D. Performed By: #### G LULS ####Point of Care testing, Glucose [Mass/Vol] 78 mg/dL Normal [facility] Comment on above: Result Comment: [facility] Glucose Reference Range is dependent on time and content of last meal. Glucose of more than 200 mg/dL in a nonstressed, ambulatory subject supports the diagnosis of Diabetes Mellitus.PERFORMED BY:[address] [place], [place] [phone] MEDICAL RONAN MIKE M.D. Performed By: #### G LULS ####Point of Care testing, US renal BIon 01-29-2023 US renal BI Normal [facility] Alanine aminotransferase [En zymatic activity/volume] in Serum or PlasmaOrdered By: Vivek Ceballos on 01-28-2023 ALT [Catalytic activity/Vol] 23 U/L 7-52 [facility] Albumin [Mass/volume] in Ser um or Plasma by Bromocresol green (BCG) dye binding methoOrdered By: Vivek Ceballos on 01-28-2023 Albumin BCG dye [Mass/Vol] 4.0 g/dL 3.5-5.7 [facility] Alkaline phosphatase [Enzyma tic activity/volume] in Serum or PlasmaOrdered By: Vivek Ceballos on 01-28-2023 ALP [Catalytic activity/Vol] 73 U/L 34-104 [facility] Amphetamine Screen Ql (U)Ord ered By: Vivek Ceballos on 01-28-2023 Amphetamines Ql (U) Negative Negative [facility] Aspartate aminotransferase [ Enzymatic activity/volume] in Serum or PlasmaOrdered By: Vivek Ceballos on 01-28-2023 AST [Catalytic activity/Vol] 16 U/L 13-39 [facility] Automated erythrocytes count in urine sediment (number/area)Ordered By: Vivek Ceballos on 01-28-2023 RBC Auto (Urine sed) [#/Area] Innumerable [HPF] 0-4 [facility] Automated leukocytes count i n urine sediment (number/area)Ordered By: Vivek Ceballos on 01-28-2023 WBC Auto (Urine sed) [#/Area] 10-19 [HPF] 0-4 [facility] Bacteria identified Cx Nom ( U)Ordered By: Vivek Ceballos on 01-28-2023 Urine culture routine Strep. agalactiae Grp B [facility] Barbiturates [Presence] in U rine by Screen methodOrdered By: Vivek Ceballos on 01-28-2023 Barbiturates Screen Ql (U) Negative Negative [facility] Basophils Auto (Bld) [#/Vol] Ordered By: Vivek Ceballos on 01-28-2023 Basophils (Bld) [#/Vol] 0.1 10*3/uL 0.0-0.2 [facility] Basophils/100 WBC Auto (Bld) Ordered By: Vivek Ceballos on 01-28-2023 Basophils/100 WBC (Bld) 0.9 % . [facility] Benzodiazepines Screen Ql (U )Ordered By: Vivek Ceballos on 01-28-2023 Benzodiazepines Ql (U) Negative Negative [facility] Benzoylecgonine [Presence] i n Urine by Screen methodOrdered By: Vivek Ceballos on 01-28-2023 Benzoylecgonine Screen Ql (U) Negative Negative [facility] Bilirubin Test strip Ql (U)O rdered By: Vivek Ceballos on 01-28-2023 Bilirubin Ql (U) Negative Negative [facility] Bilirubin.total [Mass/volume ] in Serum or PlasmaOrdered By: Vivek Ceballos on 01-28-2023 Bilirubin [Mass/Vol] 0.3 mg/dL 0.3-1.0 [facility] C Urineon 01-28-2023 Bacteria identified Cx Nom (U) Normal [facility] Comment on above: Performed By: #### 1 [id number], [id number] ####[facility] [address] [place] [address] Calcium [Mass/volume] in Ser um or PlasmaOrdered By: Vivek Ceballos on 01-28-2023 Calcium [Mass/Vol] 9.2 mg/dL 8.6-10.3 [facility] Cannabinoids [Presence] in U rine by Screen methodOrdered By: Vivek Ceballos on 01-28-2023 Cannabinoids Screen Ql (U) Negative Negative [facility] Carbon dioxide, total [Moles /volume] in Serum or PlasmaOrdered By: Vivek Ceballos on 01-28-2023 CO2 [Moles/Vol] 31.8 mmol/L 21.0-31.0 [facility] Chloride [Moles/volume] in S jaron or PlasmaOrdered By: Vivek Ceballos on 01-28-2023 Chloride [Moles/Vol] 104 mmol/L 98-107 [facility] Color Auto (U)Ordered By: Juan Ceballos on 01-28-2023 Color (U) [place] Yellow [facility] Creatinine [Mass/volume] in Serum or PlasmaOrdered By: Vivek Ceballos on 01-28-2023 Creatinine [Mass/Vol] 0.72 mg/dL 0.60-1.20 [facility] Dipstick and Microscopicon 0 01-28-2023 Appearance (U) Cloudy Critically abnormal Clear [facility] Comment on above: Order Comment: Name Collection Type:: Clean-Voided Midstream Performed By: #### C UU, ADDONUAPLUS ####[address] [address] [facility] Bacteria,Urine None Seen Normal None Seen [facility] Comment on above: Order Comment: Name Collection Type:: Clean-Voided Midstream Performed By: #### C UU, ADDONUAPLUS ####[place] [id number] [facility] Bilirubin,Urine Negative Normal Negative [facility] Comment on above: Order Comment: Name Collection Type:: Clean-Voided Midstream Performed By: #### C UU, ADDONUAPLUS ####[place] [id number] [facility] Color (U) [place] Critically abnormal Yellow [facility] Comment on above: Order Comment: Name Collection Type:: Clean-Voided Midstream Performed By: #### C UU, ADDONUAPLUS ####[place] [id number] [facility] Glucose Ql (U) Normal Normal Normal [facility] Comment on above: Order Comment: Name Collection Type:: Clean-Voided Midstream Performed By: #### C UU, ADDONUAPLUS ####[address] [address] [facility] Hyaline Casts,Urine 0-8 Normal 0-8 [facility] Comment on above: Order Comment: Name Collection Type:: Clean-Voided Midstream Result Comment: PERF ORMED BY:[address] [place], [place] [phone] MEDICAL RONAN MIKE M.D. Performed By: #### C UU, ADDONUAPLUS ####[place] [id number] [facility] Ketones Ql (U) Trace High Negative [facility] Comment on above: Order Comment: Name Collection Type:: Clean-Voided Midstream Performed By: #### C UU, ADDONUAPLUS ####[address] [address] [facility] Leukocyte esterase Test strip Ql (U) 3+ High Negative [facility] Comment on above: Order Comment: Name Collection Type:: Clean-Voided Midstream Performed By: #### C UU, ADDONUAPLUS ####[address] [address] [facility] Nitrite,Urine Negative Normal Negative [facility] Comment on above: Order Comment: Name Collection Type:: Clean-Voided Midstream Performed By: #### C UU, ADDONUAPLUS ####[address] [address] [facility] Occult Blood,Urine 3+ High Negative [facility] Comment on above: Order Comment: Name Collection Type:: Clean-Voided Midstream Result Comment: PERF ORMED BY:[address] [place], [place] [phone] MEDICAL DIRECTORNATALIA MIKE M.D. Performed By: #### C UU, ADDONUAPLUS ####[address] [address] [facility] pH (U) 6.5 [pH] Normal 5.0-9.0 [facility] Comment on above: Order Comment: Name Collection Type:: Clean-Voided Midstream Performed By: #### C UU, ADDONUAPLUS ####[address] [address] [facility] Protein,Urine Trace High Negative [facility] Comment on above: Order Comment: Name Collection Type:: Clean-Voided Midstream Performed By: #### C UU, ADDONUAPLUS ####[address] [address] [facility] RBC,Urine Innumerable High 0-4 [facility] Comment on above: Order Comment: Name Collection Type:: Clean-Voided Midstream Performed By: #### C UU, ADDONUAPLUS ####[address] [address] [facility] Specificy Dent,Urine 1.023 Normal 1.001-1.03 0 [facility] Comment on above: Order Comment: Name Collection Type:: Clean-Voided Midstream Performed By: #### C UU, ADDONUAPLUS ####[address] [address] [facility] Squamous Epithelial Cell,Urine 5-9 High 0-2 [facility] Comment on above: Order Comment: Name Collection Type:: Clean-Voided Midstream Performed By: #### C UU, ADDONUAPLUS ####[address] Urobilinogen,Urine Normal Normal Normal [facility] Comment on above: Order Comment: Name Collection Type:: Clean-Voided Midstream Performed By: #### C UU, ADDONUAPLUS ####[place] [id number] [facility] WBC,Urine 10-19 High 0-4 [facility] Comment on above: Order Comment: Name Collection Type:: Clean-Voided Midstream Performed By: #### C UU, ADDONUAPLUS ####[place] [id number] [facility] Drug Screen,Urineon 01-29-20 23 Amphetamine Screen,Urine Negative Normal Negative [facility] Comment on above: Performed By: #### U RDS ####[address] [address] [facility] Barbiturate Screen,Urine Negative Normal Negative [facility] Comment on above: Performed By: #### U RDS ####[place] [id number] [facility] Benzodiazepines Screen,Urine Negative Normal Negative [facility] Comment on above: Performed By: #### U RDS ####[place] [id number] [facility] Cannabinoid Screen,Urine Negative Normal Negative [facility] Comment on above: Result Comment: Thes e are unconfirmed results and should not be used for legal purposes. Drug Cut-Off Concentration: AMPH 1000 ng/mL MARGARITA 200 ng/mL JEREMY 200 ng/mL COCM 300 ng/mL OP 300 ng/mL PCP 25 ng/mL THC 20 ng/mLPERFORMED BY:[facility] [place], [place] [phone] MEDICAL DIRECTORNATALIA MIKE M.D. Performed By: #### U RDS ####[place] [id number] Cocaine Screen,Urine Negative Normal Negative [facility] Comment on above: Performed By: #### U RDS ####[address] Opiate Screen,Urine Negative Normal Negative [facility] Comment on above: Performed By: #### U RDS ####[address] Phencyclidine Screen,Urine Negative Normal Negative [facility] Comment on above: Performed By: #### U RDS ####[address] Eosinophils Auto (Bld) [#/Vo l]Ordered By: Vivek Ceballos on 01-28-2023 Eosinophils (Bld) [#/Vol] 0.8 10*3/uL 0.0-0.45 [facility] Eosinophils/100 WBC Auto (Bl d)Ordered By: Vivek Ceballos on 01-28-2023 Eosinophils/100 WBC (Bld) 9.4 % . [facility] Erythrocyte distribution wid th Auto (RBC) [Ratio]Ordered By: Vivek Ceballos on 01-28-2023 Erythrocyte distribution width (RBC) [Ratio] 13.0 % 11.9-15.3 [facility] Ethanol [Mass/volume] in Ser um or PlasmaOrdered By: Vivek Ceballos on 01-28-2023 Ethanol [Mass/Vol] mg/dL [facility] Ethanol [Mass/Vol] TNP [facility] Globulin Calc (S) [Mass/Vol] Ordered By: Vivek Ceballos on 01-28-2023 Globulin (S) [Mass/Vol] 3.3 g/dL [facility] Glucose [Mass/volume] in Ser um or PlasmaOrdered By: Vivek Ceballos on 01-28-2023 Glucose [Mass/Vol] 84 mg/dL 70-100 [facility] Hematocrit Auto (Bld) [Volum e fraction]Ordered By: Vivek Ceballos on 01-28-2023 Hematocrit (Bld) [Volume fraction] 37.8 % 34.0-46.4 [facility] Hemoglobin [Mass/volume] in BloodOrdered By: Vivek Ceballos on 01-28-2023 Hemoglobin (Bld) [Mass/Vol] 13.0 g/dL 11.8-15.4 [facility] Ketones Auto test strip (U) [Mass/Vol]Ordered By: Vivek Ceballos on 01-28-2023 Ketones (U) [Mass/Vol] Trace Negative [facility] Leukocytes [#/volume] correc suzanne for nucleated erythrocytes in Blood by Automated counOrdered By: Vivek Ceballos on 01-28-2023 WBC corrected for nucl RBC Auto (Bld) [#/Vol] 8.1 10*3/uL 3.8-11.6 [facility] Lymphocytes Auto (Bld) [#/Vo l]Ordered By: Vivek Ceballos on 01-28-2023 Lymphocytes (Bld) [#/Vol] 2.5 10*3/uL 1.00-4.8 [facility] Lymphocytes/100 WBC Auto (Bl d)Ordered By: Vivek Ceballos on 01-28-2023 Lymphocytes/100 WBC (Bld) 31.0 % . [facility] MCH Auto (RBC) [Entitic mass ]Ordered By: Vivek Ceballos on 01-28-2023 MCH (RBC) [Entitic mass] 29.4 pg 24.7-34.3 [facility] MCHC Auto (RBC) [Mass/Vol]Or dered By: Vivek Ceballos on 01-28-2023 MCHC (RBC) [Mass/Vol] 34.4 g/dL 32.0-35.0 [facility] MCV Auto (RBC) [Entitic vol] Ordered By: Vivek Ceballos on 01-28-2023 MCV (RBC) [Entitic vol] 85.5 fL 80-100 [facility] Monocyte distribution width [Entitic volume] in Blood by AutomatedOrdered By: Vievk Ceballos on 01-28-2023 Monocyte distribution width Auto (Bld) [Entitic vol] 18.34 % 0.00-20.00 [facility] Monocytes Auto (Bld) [#/Vol] Ordered By: Vivek Ceballos on 01-28-2023 Monocytes (Bld) [#/Vol] 0.7 10*3/uL 0.0-0.8 [facility] Monocytes/100 WBC Auto (Bld) Ordered By: Vivek Ceballos on 01-28-2023 Monocytes/100 WBC (Bld) 8.9 % . [facility] Neutrophils Auto (Bld) [#/Vo l]Ordered By: Vivek Ceballos on 01-28-2023 Neutrophils (Bld) [#/Vol] 4.0 10*3/uL 1.8-7.7 [facility] Neutrophils/100 WBC Auto (Bl d)Ordered By: Vivek Ceballos on 01-28-2023 Neutrophils/100 WBC (Bld) 49.8 % . [facility] Nitrite Test strip Ql (U)Ord ered By: Vivek Ceballos on 01-28-2023 Nitrite Ql (U) Negative Negative [facility] No Panel InformationOrdered By: Vivek Ceballos on 01-28-2023 > 60.0 mL/Min [facility] 131.06 [facility] 0-8 [LPF] 0-8 [facility] Nucleated erythrocytes [Pres ence] in Blood by Automated countOrdered By: Vivek Ceballos on 01-28-2023 Nucleated RBC Auto Ql (Bld) 0.1 /100{WBC} 0-0.5 [facility] Opiates [Presence] in Urine by Screen methodOrdered By: Vivek Ceballos on 01-28-2023 Opiates Screen Ql (U) Negative Negative [facility] Phencyclidine Screen Ql (U)O rdered By: Vivek Ceballos on 01-28-2023 Phencyclidine Ql (U) Negative Negative [facility] Platelet mean volume Auto (B ld) [Entitic vol]Ordered By: Vivek Ceballos on 01-28-2023 Platelet mean volume (Bld) [Entitic vol] 6.6 fL 6.3-10.7 [facility] Platelets Auto (Bld) [#/Vol] Ordered By: Vivek Ceballos on 01-28-2023 Platelets (Bld) [#/Vol] 202 10*3/uL 150-450 [facility] Potassium [Moles/volume] in Serum or PlasmaOrdered By: Vivek Ceballos on 01-28-2023 Potassium [Moles/Vol] 3.8 mmol/L 3.5-5.1 [facility] Protein Auto test strip (U) [Mass/Vol]Ordered By: Vivek Ceballos on 01-28-2023 Protein (U) [Mass/Vol] Trace mg/dL Negative [facility] Protein [Mass/volume] in Ser um or PlasmaOrdered By: Vivek Ceballos on 01-28-2023 Protein [Mass/Vol] 7.3 g/dL 6.4-8.9 [facility] RBC Auto (Bld) [#/Vol]Ordere d By: Vivek Ceballos on 01-28-2023 RBC (Bld) [#/Vol] 4.42 10*6/uL 3.60-5.00 [facility] Serum or plasma albumin/glob ulin mass ratioOrdered By: Vivek Ceballos on 01-28-2023 Albumin/Globulin [Mass ratio] 1.2 {ratio} [facility] Serum or plasma anion gap de terminationOrdered By: Vivek Ceballos on 01-28-2023 Anion gap [Moles/Vol] 9.0 mmol/L 6.0-15.0 [facility] Sodium [Moles/volume] in Ser um or PlasmaOrdered By: Vivek Ceballos on 01-28-2023 Sodium [Moles/Vol] 141 mmol/L 136-145 [facility] Specific gravity Auto test s trip (U) [Rel density]Ordered By: Vivek Ceballos on 01-28-2023 Specific gravity (U) [Rel density] 1.023 1.001-1.03 0 [facility] Squamous epithelial cells de tection in urine sediment by light microscopyOrdered By: Vivek Ceballos on 01-28-2023 Epithelial cells.squamous LM Ql (Urine sed) 5-9 [HPF] 0-2 [facility] Urea nitrogen [Mass/volume] in Serum or PlasmaOrdered By: Vivek Ceballos on 01-28-2023 Urea nitrogen [Mass/Vol] 18 mg/dL 7-25 [facility] Urine Cultureon 01-28-2023 Bacteria identified Cx Nom (U) ORGANISM: Strep. agalactiae Grp B (O:B) [place] Count 20,000 PERFORMED BY: [facility] [address] [place] [address] PATHOLOGIST UNDERWRITING SALES REPRESENTATIVE NATALIA MIKE M.D. Normal [facility] Comment on above: Performed By: #### C UU, ADDONUAPLUS ####[facility] [id number] [place] [id number] [facility] Urine bacteria detection by automated methodOrdered By: Vivek Ceballos on 01-28-2023 Bacteria Auto Ql (U) None seen None Seen [facility] Urine clarity by refractomet ry automatedOrdered By: Vivek Ceballos on 01-28-2023 Clarity Refractometry automated (U) Cloudy Clear [facility] Urine glucose measurement by automated test strip (mass/volume)Ordered By: Vivek Ceballos on 01-28-2023 Glucose Auto test strip (U) [Mass/Vol] Normal mg/dL Normal [facility] Urine hemoglobin detection b y automated test stripOrdered By: Vivek Ceballos on 01-28-2023 Hemoglobin Auto test strip Ql (U) 3+ Negative [facility] Urine leukocyte esterase det ection by automated test stripOrdered By: Vivek Ceballos on 01-28-2023 Leukocyte esterase Auto test strip Ql (U) 3+ Negative [facility] Urobilinogen Auto test strip (U) [Mass/Vol]Ordered By: Vviek Ceballos on 01-28-2023 Urobilinogen (U) [Mass/Vol] Normal mg/dL Normal [facility] WBC Auto (Bld) [#/Vol]Ordere d By: Vivek Ceballos on 01-28-2023 WBC (Bld) [#/Vol] 8.1 10*3/uL 3.8-11.6 [facility] pH Auto test strip (U)Ordere d By: Vivek Ceballos on 01-28-2023 pH (U) 6.5 [pH] 5.0-9.0 [facility] Discharge Instructionson Discharge Instructions [id number]:1 27 Normal [facility] Auto Diffon 01-26-2023 Basophils/100 WBC (Bld) 0.9 % Normal 0.0-2.0 [facility] Comment on above: Order Comment: Order Added by Discern Expert. Performed By: #### 2 [id number], 5770520, 9378343, 5890330, [id number], [id number] ####[facility] [address] [place] [address] Basophils/Leukocytes Auto (Bld) [Pure # fraction] 0.1 E9/L Normal 0.0-0.2 [facility] Comment on above: Order Comment: Order Added by Ariel Expert. Performed By: #### 2 919185, 9379964, 4164750, 0999510, [id number], 0595470 ####[address] [address] Eosinophils/100 WBC (Bld) 8.5 % High 0.0-8.0 [facility] Comment on above: Order Comment: Order Added by Ariel Expert. Performed By: #### 2 131397, 9996567, 4108060, 6300158, [id number], 7420072 ####[place] [address] [place] [address] Eosinophils/Leukocytes Auto (Bld) [Pure # fraction] 0.6 E9/L High 0.0-0.5 [facility] Comment on above: Order Comment: Order Added by Discern Expert. Performed By: #### 2 608565, 5352742, 7664812, 3524882, 74702305, 2425910 ####[address] [address] Lymphocytes/100 WBC (Bld) 34.0 % Normal 14.0-50.0 [facility] Comment on above: Order Comment: Order Added by Ariel Expert. Performed By: #### 2 970549, 7395870, 7135970, 8497106, 76160736, 0185134 ####[address] [address] Lymphocytes/Leukocytes Auto (Bld) [Pure # fraction] 2.5 E9/L Normal 1.0-4.0 [facility] Comment on above: Order Comment: Order Added by Discern Expert. Performed By: #### 2 317566, 4398448, 7007218, 9796965, 92275591, 1917464 ####[address] [address] Monocytes/100 WBC (Bld) 7.7 % Normal 4.0-14.0 [facility] Comment on above: Order Comment: Order Added by Discern Expert. Performed By: #### 2 270474, 0458923, 4797710, 1869709, 80322147, 4491902 ####[address] [address] Monocytes/Leukocytes Auto (Bld) [Pure # fraction] 0.6 E9/L Normal 0.2-1.0 [facility] Comment on above: Order Comment: Order Added by Discern Expert. Performed By: #### 2 686529, 7653398, 8676647, 5532539, 84020596, 6423820 ####[address] [address] Neutrophils/100 WBC (Bld) 48.9 % Normal 36.0-75.0 [facility] Comment on above: Order Comment: Order Added by Discern Expert. Performed By: #### 2 496604, 8870555, 0256879, 2628477, 07137331, 8211145 ####[place] [address] [place] [address] Neutrophils/Leukocytes Auto (Bld) [Pure # fraction] 3.6 E9/L Normal 2.0-7.5 [facility] Comment on above: Order Comment: Order Added by Discern Expert. Performed By: #### 2 044084, 4474078, 3346049, 6772168, 99723539, 3413400 ####[address] [address] BMPon 01-26-2023 Creatinine [Mass/Vol] 0.6 mg/dL Normal 0.5-1.3 [facility] Comment on above: Performed By: #### 2 705483, 8865235, 2956610, 4448032, 44598207, 9812056 ####[facility] [address] [place] [address] Urea nitrogen [Mass/Vol] 14 mg/dL Normal 5-21 [facility] Comment on above: Performed By: #### 2 298959, 8715759, 9234409, 6819308, 53034641, 6827925 ####[facility] [address] [place] [address] Urea nitrogen/Creatinine [Mass ratio] 23 No Units High 10-20 [facility] Comment on above: Performed By: #### 2 678763, 1048257, 6821719, 1006256, 34012180, 5482942 ####[facility] [address] [place] [address] Anion gap [Moles/Vol] 14 mmol/L Normal 6-16 [facility] Comment on above: Performed By: #### 2 938408, 8466422, 9545070, 2734955, 97749614, 0968486 ####[facility] [address] [place] [address] Calcium [Mass/Vol] 9.7 mg/dL Normal 8.9-11.1 [facility] Comment on above: Performed By: #### 2 082233, 9989158, 3952602, 6032520, 24833667, 0281917 ####[facility] [address] [place] [address] Chloride [Moles/Vol] 106 mmol/L Normal 101-111 [facility] Comment on above: Performed By: #### 2 952054, 7686633, 8243587, 9384401, 76884774, 6877057 ####[facility] [address] [place] [address] CO2 [Moles/Vol] 26 mmol/L Normal 21-[address] [facility] Comment on above: Performed By: #### 2 620796, 9867701, 7119682, 2991897, 40834726, 8229672 ####[facility] [address] [place] [address] Glucose [Mass/Vol] 77 mg/dL Normal 55-199 [facility] Comment on above: Result Comment: If t his glucose result represents a fasting glucose, interpretation should refer to the following reference range: 55-99 mg/dL Performed By: #### 2 746373, 4221230, 2102728, 6368777, 22708898, 1507224 ####[facility] [address] [place] [address] Potassium [Moles/Vol] 3.7 mmol/L Normal 3.5-5.3 [facility] Comment on above: Performed By: #### 2 474735, 2752382, 8894955, 1059771, 64800488, 8016785 ####[facility] [address] [place] [address] Sodium [Moles/Vol] 142 mmol/L Normal 135-145 [facility] Comment on above: Performed By: #### 2 470269, 6634600, 1953255, 5634383, 12413708, 4474751 ####[facility] [address] [place] [address] CBC w/ Auto Diffon 3 Erythrocyte distribution width (RBC) [Ratio] 13.2 % Normal 10.9-14.2 [facility] Comment on above: Performed By: #### 2 513475, 2471178, 3087444, 1015907, 46959412, 3341806 ####[facility] [address] [place] [address] Hematocrit (Bld) [Volume fraction] 40.9 % Normal 34.0-46.0 [facility] Comment on above: Performed By: #### 2 277414, 1825564, 8398022, 6076611, 05181398, 4870176 ####[address] [address] Hemoglobin (Bld) [Mass/Vol] 14.2 g/dL Normal 12.0-16.0 [facility] Comment on above: Performed By: #### 2 562826, 0851410, 9747779, 7731837, 67797962, 2592327 ####[address] [address] MCH (RBC) [Entitic mass] 29.6 pg Normal 27.0-34.0 [facility] Comment on above: Performed By: #### 2 917424, 9202398, 9122310, 4764891, 53402952, 3496088 ####[address] [address] MCHC (RBC) [Mass/Vol] 34.7 g/dL Normal 31.4-36.0 [facility] Comment on above: Performed By: #### 2 892870, 1852793, 8595291, 7241598, 16667649, 8764887 ####[address] [address] MCV (RBC) [Entitic vol] 85.2 fL Normal 80.0-100.0 [facility] Comment on above: Performed By: #### 2 277912, 6788672, 1319287, 1108590, 60751120, 6151074 ####[address] [address] Platelet mean volume (Bld) [Entitic vol] 6.4 fL Normal 6.4-10.8 [facility] Comment on above: Performed By: #### 2 923819, 3028466, 3650519, 9670013, 96614713, 3770023 ####[address] [address] Platelets (Bld) [#/Vol] 235.0 E9/L Normal 150.0-500. 0 [facility] Comment on above: Performed By: #### 2 115211, 1345765, 0740564, 3103389, 09051020, 5613317 ####[facility] [address] [place] [address] RBC (Bld) [#/Vol] 4.8 E12/L Normal 4.3-5.9 [facility] Comment on above: Performed By: #### 2 836747, 6539505, 3558194, 1043202, 72404557, 2707768 ####[facility] [address] [place] [address] WBC corrected for nucl RBC Auto (Bld) [#/Vol] 7.4 E9/L Normal 4.0-11.[address] [facility] Comment on above: Performed By: #### 2 742357, 1513984, 8528100, 2084410, 46321381, 0473172 ####[facility] [address] [place] [address] CHEMISTRYOrdered By: Lab ROP User on 01-26-2023 Glucose [Mass/Vol] 64 mg/dL Normal 55 - 99 mg/dL [facility] POC Subsection Comment on above: Result Comment: Joselyn jennings RN/ POC Device SN [id number] Invalid Interpretation Code [facility] POC Subsection POC User ID [id number] Invalid Interpretation Code [facility] POC Subsection POC Username JUANCARLOS CASTANEDA Invalid Interpretation Code [facility] POC Subsection CHEMISTRYOrdered By: SYSTEM SYSTEM on 01-26-2023 Albumin [Mass/Vol] 4.2 g/dL Normal 3.3 - 5.0 gm/dL [facility] Remisol Albumin/Globulin [Mass ratio] 1.0 {ratio} Low 1.1 - 2.2 [facility] ALP [Catalytic activity/Vol] 83 [iU]/d Normal [...] 0.6 mg/dL Normal 0.5 - 1.3 mg/dL [facility] GFR/1.73 sq M.predicted among non-blacks MDRD (S/P/Bld) [Vol rate/Area] 111 mL/min/1.73 m2 Normal >=59mL/min /1.73 m2 [facility] Chem S Globulin (S) [Mass/Vol] 4.0 g/dL Normal 1.4 - 4.0 gm/dL [facility] Remisol Glucose [Mass/Vol] 77 mg/dL Normal 55 - 199 mg/dL [facility] Lipase [Catalytic activity/Vol] 41 U/L Normal 13 - 58 unit/L [facility] Potassium [Moles/Vol] 3.7 mmol/L Normal 3.5 - 5.3 mmol/L [facility] Remisol Protein [Mass/Vol] 8.2 g/dL High 6.0 - 7.8 gm/dL [facility] Remisol Sodium [Moles/Vol] 142 mmol/L Normal 135 - 145 mmol/L [facility] Remisol Urea nitrogen [Mass/Vol] 14 mg/dL Normal 5 - 21 mg/dL [facility] Remisol Urea nitrogen/Creatinine [Mass ratio] 23 mg/mg High 10 - 20 [facility] Remisol Capillary Glucose POCon 07-3 Glucose [Mass/Vol] 64 mg/dL Normal 55-99 [facility] Comment on above: Result Comment: Noti fied RN/ Performed By: #### 2 [id number] ####[facility] [address] [place] [address] Consent for Treatmenton 12-29 Consent for Treatment [id number]:12 [id number] Normal [facility] ED Clinical Summaryon 2022 ED Clinical Summary Normal [facility] ED Note-Physicianon 01-27-20 23 ED Note-Physician Normal [facility] Comment on above: Result Comment: Elec tronically Signed By: Indy FERNANDEZ, Grey SSorin\.br\Date and Time Signed: 01/26/23 21:15 EDT ED Patient Education Noteon 01-26-2023 ED Patient Education Note Normal [facility] ED Patient Summaryon 023 ED Patient Summary Normal [facility] HEMATOLOGYOrdered By: SYSTEM SYSTEM on 01-26-2023 Basophils/100 [...] 3.6 E9/L Normal 2.0 - 7.5 E9/L [facility] HemeAutoSS HEMATOLOGYOrdered By: Mark Kate on 01-26-2023 Erythrocyte distribution width (RBC) [Ratio] 13.2 % Normal 10.9 - 14.2 % [facility] HemeAutoSS Hematocrit (Bld) [Volume fraction] 40.9 % Normal 34.0 - 46.0 % [facility] HemeAutoSS Hemoglobin (Bld) [Mass/Vol] 14.2 g/dL Normal 12.0 - 16.0 gm/dL [facility] HemeAutoSS MCH (RBC) [Entitic mass] 29.6 pg Normal 27.0 - 34.0 pg [facility] HemeAutoSS MCHC (RBC) [Mass/Vol] 34.7 g/dL Normal 31.4 - 36.0 gm/dL [facility] HemeAutoSS MCV (RBC) [Entitic vol] 85.2 fL Normal 80.0 - 100.0 fL [facility] HemeAutoSS Platelet mean volume (Bld) [Entitic vol] 6.4 fL Normal 6.4 - 10.8 fL [facility] HemeAutoSS Platelets (Bld) [#/Vol] 235.0 E9/L Normal 150.0 - 500.0 E9/L [facility] HemeAutoSS RBC (Bld) [#/Vol] 4.8 E12/L Normal 4.3 - 5.9 E12/L [facility] HemeAutoSS WBC corrected for nucl RBC Auto (Bld) [#/Vol] 7.4 E9/L Normal 4.0 - 11.0 E9/L [facility] HemeAutoSS Hep Func Panelon 01-26-2023 Bilirubin.indirect [Mass or moles/Vol] UTC Abnormal 0.1-0.9 [facility] Comment on above: Result Comment: Resu lt verified by Discern Rule. Performed result UTC (Unable to Calculate) was sent as an Alpha code due the inability to calculate a valid numeric value. Performed By: #### 2 270093, 9781934, 0507880, 6334498, 57517769, 7147550 ####[facility] [place] [address] Albumin [Mass/Vol] 4.2 g/dL Normal 3.3-5.0 [facility] Comment on above: Performed By: #### 2 154844, 4571590, 6468256, 3123073, 78977501, 8471093 ####[facility] [address] [place] [address] Albumin/Globulin (S) [Mass conc ratio] 1.0 Low 1.1-2.2 [facility] Comment on above: Performed By: #### 2 705004, 8130625, 7094346, 8149261, 95010841, 8724338 ####[facility] [address] [place] [address] ALP [Catalytic activity/Vol] 83 Int._Unit/L Normal 21-98 [facility] Comment on above: Performed By: #### 2 302740, 4186567, 7984483, 0649805, 46560408, 9047860 ####[address] [address] ALT No additional P-5'-P [Catalytic activity/Vol] 28 Int._Unit/L Normal 6-46 [facility] Comment on above: Performed By: #### 2 236515, 2964134, 1298433, 7427073, 01622872, 0836704 ####[facility] [address] [place] [address] AST [Catalytic activity/Vol] 23 Int._Unit/L Normal 5-43 [facility] Comment on above: Performed By: #### 2 441323, 0711385, 8119782, 4469659, 44009289, 8334143 ####[facility] [address] [place] [address] Bilirubin [Mass/Vol] 0.3 mg/dL Normal 0.0-1.1 [facility] Comment on above: Performed By: #### 2 884759, 5163065, 9246565, 2948521, 46666363, 1042909 ####[facility] [address] [place] [address] Globulin (S) [Mass/Vol] 4.0 g/dL Normal 1.4-4.0 [facility] Comment on above: Performed By: #### 2 277404, 2217856, 1448741, 1134673, 83617202, 8776920 ####[facility] [address] [place] [address] Protein [Mass/Vol] 8.2 g/dL High 6.0-7.8 [facility] Comment on above: Performed By: #### 2 065742, 0752229, 7409101, 5738151, 53533244, 7630643 ####[address] [place] [address] Bilirubin.direct [Mass/Vol] mg/dL Normal 0.1-0.4 [facility] Comment on above: Performed By: #### 2 299949, 3411061, 8392914, 8516894, 45455621, 2774167 ####[address] [address] Lipase Levelon 01-26-2023 Lipase [Catalytic activity/Vol] 41 U/L Normal 13-58 [facility] Comment on above: Performed By: #### 2 433050, 9954860, 0900715, 3783730, 94184945, 4388752 ####[address] [address] SEROLOGYOrdered By: Breann Torrez on 01-26-2023 HCG.beta subunit (U) [Moles/Vol] Negative Normal [facility] Man Sero U BetaHcg Qualon 01-26-2023 HCG.beta subunit (U) [Moles/Vol] Negative Normal [facility] Comment on above: Performed By: #### 2 0606064 ####[facility] [address] [place] [address] UA With Cult Reflexon 2022 Bacteria LM Ql (Urine sed) 1+ /HPF Abnormal Trace [facility] Comment on above: Performed By: #### 1 4161394, 7876103 ####[facility] [address] [place] [address] Bilirubin Ql (U) Negative Normal Negative [facility] Comment on above: Performed By: #### 1 3981789, 0746289 ####[address] [address] Clarity (U) SL CLOUDY Invalid Interpretation Code [facility] Comment on above: Performed By: #### 1 9553079, 3153073 ####[address] [address] Color (U) YELLOW Normal Yellow [facility] Comment on above: Performed By: #### 1 4171631, 8094147 ####[place] [address] Epithelial cells.squamous LM.HPF (Urine sed) [#/Area] 5-8 Normal 0-2 [facility] Comment on above: Performed By: #### 1 0038394, 6719663 ####[place] [address] Glucose Test strip (U) [Mass/Vol] TRACE Abnormal Negative [facility] Comment on above: Performed By: #### 1 0935286, 7052673 ####[address] [address] Hemoglobin Ql (U) 3+ Abnormal Negative [facility] Comment on above: Performed By: #### 1 4677004, 2657714 ####[address] [address] Ketones (U) [Mass/Vol] TRACE Invalid Interpretation Code Negative [facility] Comment on above: Performed By: #### 1 7996199, 5274840 ####[address] [address] [place].plasma/[place] .RBC (Bld) [Mass ratio] >75 Abnormal 0-3 [facility] Comment on above: Performed By: #### 1 2294709, 2505258 ####[address] [address] Mucus Ql (Urine sed) TRACE Normal [facility] Comment on above: Performed By: #### 1 9896922, 6014853 ####[address] [address] Nitrite Ql (U) Negative Normal Negative [facility] Comment on above: Performed By: #### 1 0279336, 4637097 ####[place] [address] pH (U) 5.5 [pH] Invalid Interpretation Code 5.0-9.0 [facility] Comment on above: Performed By: #### 1 8398912, 5320070 ####[place] [address] Protein (U) [Mass/Vol] TRACE Abnormal Negative Fi [facility] Comment on above: Performed By: #### 1 1484261, 5667965 ####[place] [address] Specific gravity (U) [Rel density] >=1.030 Invalid Interpretation Code 1.005-1.03 0 [facility] Comment on above: Performed By: #### 1 2365865, 9996350 ####[place] [address] Type of Urine collection method Clean Catch Normal [facility] Comment on above: Performed By: #### 1 7158719, 3037892 ####[place] [address] Urobilinogen Qn (U) 0.2 {Diaz'U}/dL Normal 0.0-1.0 [facility] Comment on above: Performed By: #### 1 1552782, 1459943 ####[place] [address] WBC Auto Ql (U) 1+ Abnormal Negative [facility] Comment on above: Performed By: #### 1 3322900, 6775481 ####[place] [address] WBC LM.HPF (Urine sed) [#/Area] 6-15 Abnormal 0-5 [facility] Comment on above: Performed By: #### 1 2997300, 1079255 ####[facility] [address] [place] [address] URINALYSISOrdered By: Yareli Torrez on 01-26-2023 Bacteria LM Ql (Urine sed) 1+ /HPF Invalid Interpretation Code Trace/HPF [facility] UA Auto SS Bilirubin Ql (U) Negative (01/26/23 8:28 PM) Normal Negative [facility] UA Auto SS Clarity (U) SL CLOUDY Invalid Interpretation Code [facility] UA Auto SS Color (U) Yellow (01/26/23 8:28 PM) Normal Yellow [facility] UA Auto SS [...] Interpretation Code Negative [facility] UA Auto SS [place].plasma/[place] .RBC (Bld) [Mass ratio] >75 /HPF Invalid [...] Desc Clean Catch (01/26/23 8:28 PM) Normal [facility] UA Auto SS Urobilinogen Qn (U) 0.6628888 {Diaz'U}/dL Normal 0.0 - 1.0 EU/dL [facility] UA Auto SS WBC Auto Ql (U) 1+ *ABN* (01/26/23 8:28 PM) Invalid Interpretation Code Negative [facility] UA Auto SS WBC LM.HPF (Urine sed) [#/Area] 6-15 /HPF Invalid Interpretation Code 0-5/HPF [facility] UA Auto SS eGFRon 01-26-2023 GFR/1.73 sq M.predicted among non-blacks MDRD (S/P/Bld) [Vol rate/Area] 111 mL/min/1.73 m2 Normal >=59 [facility] Comment on above: Order Comment: Order added by Discern Expert. 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 Kidney failure is indicated at less than 15 mL/min/1.73m2. Performed By: #### 2 537813, 8068449, 3071534, 0397022, 25544680, 6526004 ####[facility] [address] [place] [address] Glucose Glucometer (dC) [M ass/Vol]Ordered By: Braulio Dukes on 01-20-2023 Glucose [Mass/Vol] 227 mg/dL [facility] Glucose Poct Glucometerson 0 01-20-2023 Glucose [Mass/Vol] 227 mg/dL Normal [facility] Comment on above: Result Comment: [facility] Glucose Reference Range is dependent on time and content of last meal. Glucose of more than 200 mg/dL in a nonstressed, ambulatory subject supports the diagnosis of Diabetes Mellitus.PERFORMED BY:[address] [place], [place] [phone] MEDICAL DIRECTORNATALIA MIKE M.D. Performed By: #### G LULS ####Point of Care testing, Commemt1 Glu2: Cleaned Meter Normal [facility] Comment on above: Result Comment: PERF ORMED BY:[address] [place] [place], [place] [phone] MEDICAL DIRECTORNATALIA MIKE M.D. Performed By: #### G LULS ####Point of Care testing, Glucose [Mass/Vol] 86 mg/dL Normal [facility] Comment on above: Result Comment: [place] [facility] Glucose Reference Range is dependent on time and content of last meal. Glucose of more than 200 mg/dL in a nonstressed, ambulatory subject supports the diagnosis of Diabetes Mellitus. Performed By: #### G LULS ####Point of Care testing, Commemt1 Glu2: Cleaned Meter [facility] Comment on above: Result Comment: PERF ORMED BY:[address] [place], [place] [phone] MEDICAL DIRECTORNATALIA MIKE M.D. Performed By: #### G LULS ####Point of Care testing, Glucose [Mass/Vol] 68 mg/dL Normal [facility] Comment on above: Result Comment: [place] [facility] Glucose Reference Range is dependent on time and content of last meal. Glucose of more than 200 mg/dL in a nonstressed, ambulatory subject supports the diagnosis of Diabetes Mellitus. Performed By: #### G LULS ####Point of Care testing, Commemt1 Glu2: Cleaned Meter [facility] Comment on above: Result Comment: PERF ORMED BY:[address] [place], [place] [phone] MEDICAL DIRECTORNATALIA MIKE M.D. Performed By: #### G LULS ####Point of Care testing, Glucose [Mass/Vol] 54 mg/dL Off scale low [facility] Comment on above: Result Comment: [place] [facility] Glucose Reference Range is dependent on time and content of last meal. Glucose of more than 200 mg/dL in a nonstressed, ambulatory subject supports the diagnosis of Diabetes Mellitus. Performed By: #### G LULS ####Point of Care testing, Commemt1 [facility] Comment on above: Result Comment: Glu2 : Result Not ConfirmedPERFORMED BY:[address] [place] [place], [place] [phone] MEDICAL DIRECTORNATALIA MIKE M.D. Performed By: #### G LULS ####Point of Care testing, Glucose [Mass/Vol] 56 mg/dL Off scale low [facility] Comment on above: Result Comment: [place] [facility] Glucose Reference Range is dependent on time and content of last meal. Glucose of more than 200 mg/dL in a nonstressed, ambulatory subject supports the diagnosis of Diabetes Mellitus. Performed By: #### G LULS ####Point of Care testing, Commemt1 Glu2: Cleaned Meter [facility] Comment on above: Result Comment: PERF ORMED BY:[address] [place] [place], [place] [phone] MEDICAL RONAN MIKE M.D. Performed By: #### G LULS ####Point of Care testing, Glucose [Mass/Vol] 206 mg/dL Normal [facility] Comment on above: Result Comment: [place] [facility] Glucose Reference Range is dependent on time and content of last meal. Glucose of more than 200 mg/dL in a nonstressed, ambulatory subject supports the diagnosis of Diabetes Mellitus. Performed By: #### G LULS ####Point of Care testing, Commemt1 Glu2: Cleaned Meter [facility] Comment on above: Result Comment: PERF ORMED BY:[address] [place], [place] [phone] MEDICAL RONAN MIKE M.D. Performed By: #### G LULS ####Point of Care testing, Glucose [Mass/Vol] 189 mg/dL Normal [facility] Comment on above: Result Comment: [place] [facility] Glucose Reference Range is dependent on time and content of last meal. Glucose of more than 200 mg/dL in a nonstressed, ambulatory subject supports the diagnosis of Diabetes Mellitus. Performed By: #### G LULS ####Point of Care testing, No Panel InformationOrdered By: Braulio Dukes on 01-20-2023 Glu2: cleaned meter [facility] Alanine aminotransferase [En zymatic activity/volume] in Serum or PlasmaOrdered By: Harry Chapman on 01-19-2023 ALT [Catalytic activity/Vol] 28 U/L 7-52 [facility] Albumin [Mass/volume] in Ser um or Plasma by Bromocresol green (BCG) dye binding methoOrdered By: Harry Chapman on 01-19-2023 Albumin BCG dye [Mass/Vol] 3.9 g/dL 3.5-5.7 [facility] Alkaline phosphatase [Enzyma tic activity/volume] in Serum or PlasmaOrdered By: Harry Chapman on 01-19-2023 ALP [Catalytic activity/Vol] 79 U/L 34-104 [facility] Aspartate aminotransferase [ Enzymatic activity/volume] in Serum or PlasmaOrdered By: Harry Chapman on 01-19-2023 AST [Catalytic activity/Vol] 21 U/L 13-39 [facility] Basophils Auto (Bld) [#/Vol] Ordered By: aHrry Chapman on 01-19-2023 Basophils (Bld) [#/Vol] 0.1 10*3/uL 0.0-0.2 [facility] Basophils/100 WBC Auto (Bld) Ordered By: Harry Chapman on 01-19-2023 Basophils/100 WBC (Bld) 1.3 % . [facility] Bilirubin.total [Mass/volume ] in Serum or PlasmaOrdered By: Harry Chapman on 01-19-2023 Bilirubin [Mass/Vol] 0.4 mg/dL 0.3-1.0 [facility] Calcium [Mass/volume] in Ser um or PlasmaOrdered By: Harry Chapman on 01-19-2023 Calcium [Mass/Vol] 9.6 mg/dL 8.6-10.3 [facility] Carbon dioxide, total [Moles /volume] in Serum or PlasmaOrdered By: Harry Chapman on 01-19-2023 CO2 [Moles/Vol] 33.2 mmol/L 21.0-31.0 [facility] Chloride [Moles/volume] in S jaron or PlasmaOrdered By: Harry Chapman on 01-19-2023 Chloride [Moles/Vol] 102 mmol/L 98-107 [facility] Complete Blood Count Auto Di ffon 01-19-2023 Basophils (Bld) [#/Vol] 0.1 10*3/uL Normal 0.0-0.2 [facility] Comment on above: Result Comment: PERF ORMED BY:[address] [place], [place] [phone] MEDICAL DIRECTORNATALIA MIKE M.D. Performed By: #### C BC, LIPASE, CMP ####[address] [address] [facility] Basophils/100 WBC (Bld) 1.3 % Normal . [facility] Comment on above: Performed By: #### C BC, LIPASE, CMP ####[address] [address] [facility] Eosinophils (Bld) [#/Vol] 0.7 10*3/uL High 0.0-0.45 [facility] Comment on above: Performed By: #### C BC, LIPASE, CMP ####[address] [address] [facility] Eosinophils/100 WBC (Bld) 9.1 % Normal . [facility] Comment on above: Performed By: #### C BC, LIPASE, CMP ####[address] [address] [facility] Erythrocyte distribution width (RBC) [Ratio] 13.0 % Normal 11.9-15.3 [facility] Comment on above: Performed By: #### C BC, LIPASE, CMP ####[address] [address] [facility] Hematocrit (Bld) [Volume fraction] 38.3 % Normal 34.0-46.4 [facility] Comment on above: Performed By: #### C BC, LIPASE, CMP ####[address] [address] [facility] Hemoglobin (Bld) [Mass/Vol] 13.1 g/dL Normal 11.8-15.4 [facility] Comment on above: Performed By: #### C BC, LIPASE, CMP ####[address] Lymphocytes (Bld) [#/Vol] 2.0 10*3/uL Normal 1.00-4.8 [facility] Comment on above: Performed By: #### C BC, LIPASE, CMP ####[address] Lymphocytes/100 WBC (Bld) 27.1 % Normal . [facility] Comment on above: Performed By: #### C BC, LIPASE, CMP ####[address] MCH (RBC) [Entitic mass] 29.7 pg Normal 24.7-34.3 [facility] Comment on above: Performed By: #### C BC, LIPASE, CMP ####[address] MCV (RBC) [Entitic vol] 86.8 fL Normal 80-100 [facility] Comment on above: Performed By: #### C BC, LIPASE, CMP ####[address] Mean Corpuscular HGB Conc 34.2 g/dL Normal 32.0-35.0 [facility] Comment on above: Performed By: #### C BC, LIPASE, CMP ####[address] Monocytes (Bld) [#/Vol] 0.5 10*3/uL Normal 0.0-0.8 [facility] Comment on above: Performed By: #### C BC, LIPASE, CMP ####[address] Monocytes/100 WBC (Bld) 6.7 % Normal . [facility] Comment on above: Performed By: #### C BC, LIPASE, CMP ####[address] Neutrophils (Bld) [#/Vol] 4.2 10*3/uL Normal 1.8-7.7 [facility] Comment on above: Performed By: #### C BC, LIPASE, CMP ####[address] Neutrophils/100 WBC (Bld) 55.8 % Normal . [facility] Comment on above: Performed By: #### C BC, LIPASE, CMP ####[address] NRBC% 0.1 /100{WBC} Normal 0-0.5 [facility] Comment on above: Performed By: #### C BC, LIPASE, CMP ####[address] Platelet mean volume (Bld) [Entitic vol] 6.6 fL Normal 6.3-10.7 [facility] Comment on above: Performed By: #### C BC, LIPASE, CMP ####[address] Platelets (Bld) [#/Vol] 202 10*3/uL Normal 150-450 [facility] Comment on above: Performed By: #### C BC, LIPASE, CMP ####[address] RBC (Bld) [#/Vol] 4.41 10*6/uL Normal 3.60-5.00 [facility] Comment on above: Performed By: #### C BC, LIPASE, CMP ####[address] WBC (Bld) [#/Vol] 7.4 10*3/uL Normal 3.8-11.6 [facility] Comment on above: Performed By: #### C BC, LIPASE, CMP ####[address] Comprehensive Metabolic Pane loco 01-19-2023 Albumin [Mass/Vol] 3.9 g/dL Normal 3.5-5.7 [facility] Comment on above: Performed By: #### C BC, LIPASE, CMP ####[facility] [place] [address] [facility] Albumin/Globulin [Mass ratio] 1.2 {ratio} Normal [facility] Comment on above: Performed By: #### C BC, LIPASE, CMP ####[facility] [id number] [place] [address] [facility] ALP [Catalytic activity/Vol] 79 U/L Normal 34-104 [facility] Comment on above: Performed By: #### C BC, LIPASE, CMP ####[facility] [id number] [place] [address] [facility] ALT [Catalytic activity/Vol] 28 U/L Normal 7-52 [facility] Comment on above: Performed By: #### C BC, LIPASE, CMP ####[facility] [place] [address] [facility] Anion gap [Moles/Vol] 8.5 mmol/L Normal 6.0-15.0 [facility] Comment on above: Performed By: #### C BC, LIPASE, CMP ####[place] [place] [address] [facility] AST [Catalytic activity/Vol] 21 U/L Normal 13-39 [facility] Comment on above: Performed By: #### C BC, LIPASE, CMP ####[address] [place] [address] [facility] Bilirubin [Mass/Vol] 0.4 mg/dL Normal 0.3-1.0 [facility] Comment on above: Performed By: #### C BC, LIPASE, CMP ####[facility] [id number] [place] [address] [facility] Calcium [Mass/Vol] 9.6 mg/dL Normal 8.6-10.3 [facility] Comment on above: Performed By: #### C BC, LIPASE, CMP ####[facility] [place] [address] [facility] Chloride [Moles/Vol] 102 mmol/L Normal 98-107 [facility] Comment on above: Performed By: #### C BC, LIPASE, CMP ####[facility] [place] [address] [facility] CO2 [Moles/Vol] 33.2 mmol/L High 21.0-31.0 [facility] Comment on above: Performed By: #### C BC, LIPASE, CMP ####[place] [address] [place] [address] [facility] Creatinine [Mass/Vol] 1.02 mg/dL Normal 0.60-1.20 [facility] Comment on above: Performed By: #### C BC, LIPASE, CMP ####[place] [place] [id number] [facility] Creatinine Clr Calc Pharmacy 92.12 [facility] Comment on above: Performed By: #### C BC, LIPASE, CMP ####[place] [address] GFR/1.73 sq M.predicted MDRD (S/P/Bld) [Vol rate/Area] mL/min/{1.73_m2} [facility] Comment on above: Performed By: #### C BC, LIPASE, CMP ####[address] Globulin (S) [Mass/Vol] 3.2 g/dL [facility] Comment on above: Performed By: #### C BC, LIPASE, CMP ####[place] [id number] [facility] Glucose [Mass/Vol] 158 mg/dL High 70-100 [facility] Comment on above: Result Comment: [place] Glucose Reference Range is dependent on time and content of last meal. Glucose of more than 200 mg/dL in a nonstressed, ambulatory subject supports the diagnosis of Diabetes Mellitus. ADA recommended reference range Performed By: #### C BC, LIPASE, CMP ####[place] [address] [place] [id number] [facility] Potassium [Moles/Vol] 4.7 mmol/L Normal 3.5-5.1 [facility] Comment on above: Performed By: #### C BC, LIPASE, CMP ####[facility] [place] [address] [facility] Protein [Mass/Vol] 7.1 g/dL Normal 6.4-8.9 [facility] Comment on above: Performed By: #### C BC, LIPASE, CMP ####[facility] [id number] [place] [address] [facility] Sodium [Moles/Vol] 139 mmol/L Normal 136-145 [facility] Comment on above: Performed By: #### C BC, LIPASE, CMP ####[facility] [id number] [place] [address] [facility] Urea nitrogen [Mass/Vol] 18 mg/dL Normal 7-25 [facility] Comment on above: Performed By: #### C BC, LIPASE, CMP ####[facility] Aee[address] [place] [address] [facility] Creatinine [Mass/volume] in Serum or PlasmaOrdered By: Harry Chapman on 01-19-2023 Creatinine [Mass/Vol] 1.02 mg/dL 0.60-1.20 [facility] ECG 12 lead ECGon 01-19-2023 ECG 12 lead ECG Normal [facility] Eosinophils Auto (Bld) [#/Vo l]Ordered By: Harry Chapman on 01-19-2023 Eosinophils (Bld) [#/Vol] 0.7 10*3/uL 0.0-0.45 [facility] Eosinophils/100 WBC Auto (Bl d)Ordered By: Harry Chapman on 01-19-2023 Eosinophils/100 WBC (Bld) 9.1 % . [facility] Erythrocyte distribution wid th Auto (RBC) [Ratio]Ordered By: Harry Chapman on 01-19-2023 Erythrocyte distribution width (RBC) [Ratio] 13.0 % 11.9-15.3 [facility] Globulin Calc (S) [Mass/Vol] Ordered By: Harry Chapman on 01-19-2023 Globulin (S) [Mass/Vol] 3.2 g/dL [facility] Glucose Poct Glucometerson 0 01-19-2023 Commemt1 Glu2: Cleaned Meter Normal [facility] Comment on above: Result Comment: PERF ORMED BY:[facility] [place], [place] [phone] MEDICAL DIRECTORNATALIA MIKE M.D. Performed By: #### G LULS ####Point of Care testing, Glucose [Mass/Vol] 155 mg/dL Normal [facility] Comment on above: Result Comment: [place] om Glucose Reference Range is dependent on time and content of last meal. Glucose of more than 200 mg/dL in a nonstressed, ambulatory subject supports the diagnosis of Diabetes Mellitus. Performed By: #### G LULS ####Point of Care testing, Commemt1 Glu2: Cleaned Meter Normal [facility] Comment on above: Result Comment: PERF ORMED BY:[place] [address] [place], [place] [phone] MEDICAL DIRECTORNATALIA MIKE M.D. Performed By: #### G LULS ####Point of Care testing, Glucose [Mass/Vol] 161 mg/dL Normal [facility] Comment on above: Result Comment: [place] om Glucose Reference Range is dependent on time and content of last meal. Glucose of more than 200 mg/dL in a nonstressed, ambulatory subject supports the diagnosis of Diabetes Mellitus. Performed By: #### G LULS ####Point of Care testing, Glucose [Mass/Vol] 83 mg/dL Normal [facility] Comment on above: Result Comment: [place] om Glucose Reference Range is dependent on time and content of last meal. Glucose of more than 200 mg/dL in a nonstressed, ambulatory subject supports the diagnosis of Diabetes Mellitus.PERFORMED BY:[place] [address] [place], [place] [phone] MEDICAL DIRECTORNATALIA MIKE M.D. Performed By: #### G LULS ####Point of Care testing, Glucose [Mass/volume] in Ser um or PlasmaOrdered By: Harry Chapman on 01-19-2023 Glucose [Mass/Vol] 158 mg/dL 70-100 [facility] Hematocrit Auto (Bld) [Volum e fraction]Ordered By: Harry Chapman on 01-19-2023 Hematocrit (Bld) [Volume fraction] 38.3 % 34.0-46.4 [facility] Hemoglobin [Mass/volume] in BloodOrdered By: Harry Chapman on 01-19-2023 Hemoglobin (Bld) [Mass/Vol] 13.1 g/dL 11.8-15.4 [facility] Leukocytes [#/volume] correc suzanne for nucleated erythrocytes in Blood by Automated counOrdered By: Harry Chapman on 01-19-2023 WBC corrected for nucl RBC Auto (Bld) [#/Vol] 7.4 10*3/uL 3.8-11.6 [facility] Lipaseon 01-19-2023 Lipase [Catalytic activity/Vol] 17.0 U/L Normal 11.0-82.0 [facility] Comment on above: Result Comment: PERF ORMED BY:[address] [place], [place] [phone] MEDICAL DIRECTORNATALIA MIKE M.D. Performed By: #### C BC, LIPASE, CMP ####[address] [address] [facility] Lipase [Enzymatic activity/v olume] in Serum or PlasmaOrdered By: Harry Chapman on 01-19-2023 Lipase [Catalytic activity/Vol] 17.0 U/L 11.0-82.0 [facility] Lymphocytes Auto (Bld) [#/Vo l]Ordered By: Harry Chapman on 01-19-2023 Lymphocytes (Bld) [#/Vol] 2.0 10*3/uL 1.00-4.8 [facility] Lymphocytes/100 WBC Auto (Bl d)Ordered By: Harry Chapman on 01-19-2023 Lymphocytes/100 WBC (Bld) 27.1 % . [facility] MCH Auto (RBC) [Entitic mass ]Ordered By: Harry Chapman on 01-19-2023 MCH (RBC) [Entitic mass] 29.7 pg 24.7-34.3 [facility] MCHC Auto (RBC) [Mass/Vol]Or dered By: Harry Chapman on 01-19-2023 MCHC (RBC) [Mass/Vol] 34.2 g/dL 32.0-35.0 [facility] MCV Auto (RBC) [Entitic vol] Ordered By: Harry Chapman on 01-19-2023 MCV (RBC) [Entitic vol] 86.8 fL 80-100 [facility] Monocytes Auto (Bld) [#/Vol] Ordered By: Harry Chapman on 01-19-2023 Monocytes (Bld) [#/Vol] 0.5 10*3/uL 0.0-0.8 [facility] Monocytes/100 WBC Auto (Bld) Ordered By: Harry Chapman on 01-19-2023 Monocytes/100 WBC (Bld) 6.7 % . [facility] Neutrophils Auto (Bld) [#/Vo l]Ordered By: Harry Chapman on 01-19-2023 Neutrophils (Bld) [#/Vol] 4.2 10*3/uL 1.8-7.7 [facility] Neutrophils/100 WBC Auto (Bl d)Ordered By: Harry Chapman on 01-19-2023 Neutrophils/100 WBC (Bld) 55.8 % . [facility] No Panel InformationOrdered By: Harry Chapman on 01-19-2023 > 60.0 mL/Min [facility] 92.12 [facility] Nucleated erythrocytes [Pres ence] in Blood by Automated countOrdered By: Harry Chapman on 01-19-2023 Nucleated RBC Auto Ql (Bld) 0.1 /100{WBC} 0-0.5 [facility] Platelet mean volume Auto (B ld) [Entitic vol]Ordered By: Harry Chapman on 01-19-2023 Platelet mean volume (Bld) [Entitic vol] 6.6 fL 6.3-10.7 [facility] Platelets Auto (Bld) [#/Vol] Ordered By: Harry Chapman on 01-19-2023 Platelets (Bld) [#/Vol] 202 10*3/uL 150-450 [facility] Potassium [Moles/volume] in Serum or PlasmaOrdered By: Harry Chapman on 01-19-2023 Potassium [Moles/Vol] 4.7 mmol/L 3.5-5.1 [facility] Protein [Mass/volume] in Ser um or PlasmaOrdered By: Harry Chapman on 01-19-2023 Protein [Mass/Vol] 7.1 g/dL 6.4-8.9 [facility] RBC Auto (Bld) [#/Vol]Ordere d By: Harry Chapman on 01-19-2023 RBC (Bld) [#/Vol] 4.41 10*6/uL 3.60-5.00 [facility] Serum or plasma albumin/glob ulin mass ratioOrdered By: Harry Chapman on 01-19-2023 Albumin/Globulin [Mass ratio] 1.2 {ratio} [facility] Serum or plasma anion gap de terminationOrdered By: Harry Chapman on 01-19-2023 Anion gap [Moles/Vol] 8.5 mmol/L 6.0-15.0 [facility] Sodium [Moles/volume] in Ser um or PlasmaOrdered By: Harry Chapman on 01-19-2023 Sodium [Moles/Vol] 139 mmol/L 136-145 [facility] Urea nitrogen [Mass/volume] in Serum or PlasmaOrdered By: Harry Chapman on 01-19-2023 Urea nitrogen [Mass/Vol] 18 mg/dL 7-25 [facility] WBC Auto (Bld) [#/Vol]Ordere d By: Harry Chapman on 01-19-2023 WBC (Bld) [#/Vol] 7.4 10*3/uL 3.8-11.6 [facility] Cholesterol [Mass/volume] in Serum or PlasmaOrdered By: Braulio Dukes on 01-18-2023 Cholesterol [Mass/Vol] 189 mg/dL 140-[address] [facility] Cholesterol in LDL Calc [Mas s/Vol]Ordered By: Braulio Dukes on 01-18-2023 Cholesterol in LDL [Mass/Vol] 101 mg/dL 0-100 [facility] Cholesterol in VLDL Calc [Ma ss/Vol]Ordered By: Braulio Dukes on 01-18-2023 Cholesterol in VLDL [Mass/Vol] 39 mg/dL [facility] ECG 12 lead ECGon 01-18-2023 ECG 12 lead ECG Normal [facility] Free T4 (Free Thyroxine)on 0 01-18-2023 Free T4 [Mass/Vol] 0.66 ng/dL Normal 0.61-1.12 [facility] Comment on above: Performed By: #### L IPID, T4F, TSH3 wRFLX, [id number] ####[place] [address] Lipid Panelon 01-18-2023 Cholesterol [Mass/Vol] 189 mg/dL Normal 140-[address] [facility] Comment on above: Result Comment: Chol less than 200 mg/dl low risk Chol 201-239 mg/dl borderline risk Chol 240 mg/dl and greater high risk Performed By: #### L IPID, T4F, TSH3 wRFLX, [id number] ####[address] Cholesterol in HDL [Mass/Vol] 49 mg/dL Normal 23-92 [facility] Comment on above: Result Comment: HDL CHOL ATP-III CLASSIFICATION Cardiovascular Risk HDL > or equal to 60 mg/dL LOW HDL < 40 mg/dL HIGH Performed By: #### L IPID, T4F, TSH3 wRFLX, [id number] ####[facility] [place] [address] [facility] Cholesterol.total/Chol esterol in HDL [Mass ratio] 3.9 {ratio} Normal <5.0 [facility] Comment on above: Performed By: #### L IPID, T4F, TSH3 wRFLX, [id number] ####[place] [address] [place] [address] [facility] LDL Cholesterol,Calculated 101 mg/dL High 0-100 [facility] Comment on above: Result Comment: LDL ATP III CLASSIFICATION LDL less than 100 mg/dL Optimal LDL 100-129 mg/dL Near or above optimal LDL 130-159 mg/dL Borderline high LDL 160-189 mg/dL High LDL greater than 189 mg/dL Very high Performed By: #### L IPID, T4F, TSH3 wRFLX, [id number] ####[facility] Triglyceride w/Reflex 195 mg/dL High 0-149 [facility] Comment on above: Result Comment: TRIG ATP III CLASSIFICATION TRIG less than 150 mg/dL Normal TRIG 150-199 mg/dL Borderline high TRIG 200-500 mg/dL High TRIG greater than 500 mg/dL Very high Standard traceable to the Center for Disease Conrtrol and Prevention (CDC) test method. Performed By: #### L IPID, T4F, TSH3 wRFLX, [id number] ####[place] [address] VLDL CHOLESTEROL 39 mg/dL Normal [facility] Comment on above: Performed By: #### L IPID, T4F, TSH3 wRFLX, [id number] ####[place] [address] Serum or plasma high density lipoprotein (HDL) cholesterol measurementOrdered By: Braulio Dukes on 01-18-2023 Cholesterol in HDL [Mass/Vol] 49 mg/dL [facility] Serum or plasma total choles terol/high density lipoprotein (HDL) cholesterol mass ratOrdered By: Braulio Dukes on 01-18-2023 Cholesterol.total/Chol esterol in HDL [Mass ratio] 3.9 {ratio} <5.0 [facility] Thyroid Stim Hormone w/Rflxo n 01-18-2023 Thyroid Stim Hormone w/Rflx 16.29 u[iU]/mL High 0.45-5.33 [facility] Comment on above: Performed By: #### L IPID, T4F, TSH3 wRFLX, [id number] ####[place] [address] Thyrotropin [Units/volume] i n Serum or PlasmaOrdered By: Braulio Dukes on 01-18-2023 TSH Qn 16.29 m[IU]/L 0.45-5.33 [facility] Thyroxine (T4) free [Mass/vo lume] in Serum or PlasmaOrdered By: Braulio Dukes on 01-18-2023 Free T4 [Mass/Vol] 0.66 ng/dL 0.61-1.12 [facility] Triglyceride [Mass/volume] i n Serum or PlasmaOrdered By: Braulio Dukes on 01-18-2023 Triglyceride [Mass/Vol] 195 mg/dL 0-149 [facility] Vitamin D 25 Hydroxy Totalon 01-18-2023 Vitamin D 25 Hydroxy Total 36.5 ng/mL Normal 30-100 [facility] Comment on above: Result Comment: [place] MIN D STATUS 25(OH)VITAMIN D RANGE (ng/mL) Deficient <20 Insufficient 20 to <30 Sufficient 30 to 100 Reference: Nathalia MF,Emi DUFFY, Christopher MENJIVAR, et al. Evaluation,treatment, and prevention of vitamin D deficiency; an Endocrine Society clinical practice guideline. JCEM. 2010; 96(7):1911-30.PERFORMED BY:[place] [address] [address] [place] [place] [phone] MEDICAL DIRECTORNATALIA MIKE M.D. Performed By: #### L IPID, T4F, TSH3 wRFLX, [id number] ####[facility] [place] [address] [facility] Vitamin D+Metabolites [Mass/ volume] in Serum or PlasmaOrdered By: Braulio Dukes on 01-18-2023 Vitamin D+Metabolites [Mass/Vol] 36.5 ng/mL 30-100 [facility] Glucose Glucometer (BldC) [M ass/Vol]Ordered By: Braulio Dukes on 01-03-2023 Glucose [Mass/Vol] 283 mg/dL [facility] Glucose Poct Glucometerson 0 01-03-2023 Commemt1 Glu2: Cleaned Meter Normal [facility] Comment on above: Result Comment: PERF ORMED BY:[place] [address] [address] [place] [place] [phone] MEDICAL DIRECTORNATALIA MIKE M.D. Performed By: #### G LULS ####Point of Care testing, Glucose [Mass/Vol] 283 mg/dL Normal [facility] Comment on above: Result Comment: [place] om Glucose Reference Range is dependent on time and content of last meal. Glucose of more than 200 mg/dL in a nonstressed, ambulatory subject supports the diagnosis of Diabetes Mellitus. Performed By: #### G LULS ####Point of Care testing, Commemt1 Glu2: Cleaned Meter [facility] Comment on above: Result Comment: PERF ORMED BY:[place] [address] [address] [place], [place] [phone] MEDICAL DIRECTORNATALIA MIKE M.D. Performed By: #### G LULS ####Point of Care testing, Glucose [Mass/Vol] 255 mg/dL Normal [facility] Comment on above: Result Comment: [facility] Glucose Reference Range is dependent on time and content of last meal. Glucose of more than 200 mg/dL in a nonstressed, ambulatory subject supports the diagnosis of Diabetes Mellitus. Performed By: #### G LULS ####Point of Care testing, No Panel InformationOrdered By: Braulio Dukes on 01-03-2023 Glu2: cleaned meter [facility] Glucose Poct Glucometerson 0 01-02-2023 Glucose [Mass/Vol] 230 mg/dL Normal [facility] Comment on above: Result Comment: [place] om Glucose Reference Range is dependent on time and content of last meal. Glucose of more than 200 mg/dL in a nonstressed, ambulatory subject supports the diagnosis of Diabetes Mellitus.PERFORMED BY:[place] [address] [address] [place], [place] [phone] MEDICAL DIRECTORNATALIA MIKE M.D. Performed By: #### G LULS ####Point of Care testing, Glucose [Mass/Vol] 189 mg/dL Normal [facility] Comment on above: Result Comment: [place] Glucose Reference Range is dependent on time and content of last meal. Glucose of more than 200 mg/dL in a nonstressed, ambulatory subject supports the diagnosis of Diabetes Mellitus.PERFORMED BY:[place] [address] [place] [place], [place] [phone] MEDICAL RONAN MIKE M.D. Performed By: #### G LULS ####Point of Care testing, Glucose [Mass/Vol] 88 mg/dL Normal [facility] Comment on above: Result Comment: [facility] Glucose Reference Range is dependent on time and content of last meal. Glucose of more than 200 mg/dL in a nonstressed, ambulatory subject supports the diagnosis of Diabetes Mellitus.PERFORMED BY:[place] [address] [place] [place], [place] [phone] MEDICAL DIRECTORNATALIA MIKE M.D. Performed By: #### G LULS ####Point of Care testing, Glucose [Mass/Vol] 165 mg/dL Normal [facility] Comment on above: Result Comment: [facility] Glucose Reference Range is dependent on time and content of last meal. Glucose of more than 200 mg/dL in a nonstressed, ambulatory subject supports the diagnosis of Diabetes Mellitus.PERFORMED BY:[place] [address] [place], [place] [phone] MEDICAL RONAN MIKE M.D. Performed By: #### G LULS ####Point of Care testing, Glucose [Mass/Vol] 231 mg/dL Normal [facility] Comment on above: Result Comment: [facility] Glucose Reference Range is dependent on time and content of last meal. Glucose of more than 200 mg/dL in a nonstressed, ambulatory subject supports the diagnosis of Diabetes Mellitus.PERFORMED BY:[place] [address] [place] [place], [place] [phone] MEDICAL RONAN MIKE M.D. Performed By: #### G LULS ####Point of Care testing, A1C with Estimated Average José christina 01-01-2023 Glucose [Mass/Vol] 226 mg/dL Normal [facility] Comment on above: Result Comment: PERF ORMED BY:[place] [address] [address] [place] [place] [phone] MEDICAL RONAN MIKE M.D. Performed By: #### A 1C [facility] eA ####[address] [address] [facility] HbA1c (Bld) [Mass fraction] 9.5 % High 4.3-5.6 [facility] Comment on above: Result Comment: Incr eased risk for diabetes: 5.7 - 6.4 diabetes: >6.4 glycemic control for adults with diabetes: <7.0 Performed By: #### A 1C [facility] eA ####[place] [address] [place] [address] [facility] Glucose Poct Glucometerson 0 01-01-2023 Glucose [Mass/Vol] 119 mg/dL Normal [facility] Comment on above: Result Comment: [place] Glucose Reference Range is dependent on time and content of last meal. Glucose of more than 200 mg/dL in a nonstressed, ambulatory subject supports the diagnosis of Diabetes Mellitus.PERFORMED BY:[place] [address] [place] [place], [place] [phone] MEDICAL DIRECTORNATALIA MIKE M.D. Performed By: #### G LULS ####Point of Care testing, Glucose [Mass/Vol] 107 mg/dL Normal [facility] Comment on above: Result Comment: [place] Glucose Reference Range is dependent on time and content of last meal. Glucose of more than 200 mg/dL in a nonstressed, ambulatory subject supports the diagnosis of Diabetes Mellitus.PERFORMED BY:[place] [address] [place] [place], [place] [phone] MEDICAL RONAN MIKE M.D. Performed By: #### G LULS ####Point of Care testing, Glucose [Mass/Vol] 227 mg/dL Normal [facility] Comment on above: Result Comment: [place] Glucose Reference Range is dependent on time and content of last meal. Glucose of more than 200 mg/dL in a nonstressed, ambulatory subject supports the diagnosis of Diabetes Mellitus.PERFORMED BY:[address] [place], [place] [phone] MEDICAL DIRECTORNATALIA MIKE M.D. Performed By: #### G LILLY ####Point of Care testing, Glucose mean value [Mass/vol ume] in Blood Estimated from glycated hemoglobinOrdered By: Braulio Dukes on 01-01-2023 Average glucose Estimated from glycated hemoglobin (Bld) [Mass/Vol] 226 mg/dL [facility] Hemoglobin A1c percentageOrd ered By: Braulio Dukes on 01-01-2023 HbA1c (Bld) [Mass fraction] 9.5 % 4.3-5.6 [facility] Cholesterol [Mass/volume] in Serum or PlasmaOrdered By: Braulio Dukes on 12-31-2022 Cholesterol [Mass/Vol] 194 mg/dL 140-[address] [facility] Cholesterol in LDL Calc [Mas s/Vol]Ordered By: Braulio Dukes on 12-31-2022 Cholesterol in LDL [Mass/Vol] 119 mg/dL 0-100 [facility] Cholesterol in VLDL Calc [Ma ss/Vol]Ordered By: Braulio Dukes on 12-31-2022 Cholesterol in VLDL [Mass/Vol] 26 mg/dL [facility] Free T4 (Free Thyroxine)on 0 12-31-2022 Free T4 [Mass/Vol] 0.74 ng/dL Normal 0.61-1.12 [facility] Comment on above: Performed By: #### T SH3 wRFLX, T4F ####[facility] [place] [address] [facility] Glucose Poct Glucometerson 0 12-31-2022 Commemt1 Glu2: Cleaned Meter Normal [facility] Comment on above: Result Comment: PERF ORMED BY:[address] [place] [place], [place] [phone] MEDICAL DIRECTORNATALIA MIKE M.D. Performed By: #### G LULS ####Point of Care testing, Glucose [Mass/Vol] 150 mg/dL Normal [facility] Comment on above: Result Comment: [place] om Glucose Reference Range is dependent on time and content of last meal. Glucose of more than 200 mg/dL in a nonstressed, ambulatory subject supports the diagnosis of Diabetes Mellitus. Performed By: #### G LULS ####Point of Care testing, Glucose [Mass/Vol] 162 mg/dL Normal [facility] Comment on above: Result Comment: [place] om Glucose Reference Range is dependent on time and content of last meal. Glucose of more than 200 mg/dL in a nonstressed, ambulatory subject supports the diagnosis of Diabetes Mellitus.PERFORMED BY:[address] [place], [place] [phone] MEDICAL DIRECTORNATALIA MIKE M.D. Performed By: #### G LULS ####Point of Care testing, Commemt1 Glu2: Cleaned Meter Normal [facility] Comment on above: Result Comment: PERF ORMED BY:[address] [place], [place] [phone] MEDICAL DIRECTORNATALIA MIKE M.D. Performed By: #### G LULS ####Point of Care testing, Glucose [Mass/Vol] 73 mg/dL Normal [facility] Comment on above: Result Comment: [place] om Glucose Reference Range is dependent on time and content of last meal. Glucose of more than 200 mg/dL in a nonstressed, ambulatory subject supports the diagnosis of Diabetes Mellitus. Performed By: #### G LULS ####Point of Care testing, Commemt1 [facility] Comment on above: Result Comment: Glu2 : WILL NOTIFY /STEPHENERFORMED BY:[address] [place], [place] [phone] MEDICAL DIRECTORNATALIA MIKE M.D. Performed By: #### G LULS ####Point of Care testing, Glucose [Mass/Vol] 52 mg/dL Off scale low [facility] Comment on above: Result Comment: [place] om Glucose Reference Range is dependent on time and content of last meal. Glucose of more than 200 mg/dL in a nonstressed, ambulatory subject supports the diagnosis of Diabetes Mellitus. Performed By: #### G LULS ####Point of Care testing, Glucose [Mass/Vol] 134 mg/dL Normal [facility] Comment on above: Result Comment: [facility] Glucose Reference Range is dependent on time and content of last meal. Glucose of more than 200 mg/dL in a nonstressed, ambulatory subject supports the diagnosis of Diabetes Mellitus.PERFORMED BY:[address] [place], [place] [phone] MEDICAL DIRECTORNATALIA MIKE M.D. Performed By: #### G LULS ####Point of Care testing, Glucose [Mass/Vol] 184 mg/dL Normal [facility] Comment on above: Result Comment: [facility] Glucose Reference Range is dependent on time and content of last meal. Glucose of more than 200 mg/dL in a nonstressed, ambulatory subject supports the diagnosis of Diabetes Mellitus.PERFORMED BY:[address] [place], [place] [phone] MEDICAL DIRECTORNATALIA MIKE M.D. Performed By: #### G LULS ####Point of Care testing, Glucose [Mass/Vol] 146 mg/dL Normal [facility] Comment on above: Result Comment: [facility] Glucose Reference Range is dependent on time and content of last meal. Glucose of more than 200 mg/dL in a nonstressed, ambulatory subject supports the diagnosis of Diabetes Mellitus.PERFORMED BY:[address] [place], [place] [phone] MEDICAL DIRECTORNATALIA MIKE M.D. Performed By: #### G LULS ####Point of Care testing, Lipid Panelon 12-31-2022 Cholesterol [Mass/Vol] 194 mg/dL Normal 140-[address] [facility] Comment on above: Result Comment: Chol less than 200 mg/dl low risk Chol 201-239 mg/dl borderline risk Chol 240 mg/dl and greater high risk Performed By: #### L IPID, [id number] ####[address] [place] [address] [facility] Cholesterol in HDL [Mass/Vol] 49 mg/dL Normal [facility] Comment on above: Result Comment: HDL CHOL ATP-III CLASSIFICATION Cardiovascular Risk HDL > or equal to 60 mg/dL LOW HDL < 40 mg/dL HIGH Performed By: #### L IPID, [id number] ####[address] [address] [facility] Cholesterol.total/Chol esterol in HDL [Mass ratio] 4.0 {ratio} Normal <5.0 [facility] Comment on above: Performed By: #### L IPID, [id number] ####[address] [address] [facility] LDL Cholesterol,Calculated 119 mg/dL High 0-100 [facility] Comment on above: Result Comment: LDL ATP III CLASSIFICATION LDL less than 100 mg/dL Optimal LDL 100-129 mg/dL Near or above optimal LDL 130-159 mg/dL Borderline high LDL 160-189 mg/dL High LDL greater than 189 mg/dL Very high Performed By: #### L IPID, [id number] ####[address] [address] [facility] Triglyceride w/Reflex 132 mg/dL Normal 0-149 [facility] Comment on above: Result Comment: TRIG ATP III CLASSIFICATION TRIG less than 150 mg/dL Normal TRIG 150-199 mg/dL Borderline high TRIG 200-500 mg/dL High TRIG greater than 500 mg/dL Very high Standard traceable to the Center for Disease Conrtrol and Prevention (CDC) test method. Performed By: #### L IPID, [id number] ####[address] [place] [address] [facility] VLDL CHOLESTEROL 26 mg/dL Normal [facility] Comment on above: Performed By: #### L IPID, [id number] ####[address] [address] [facility] Serum or plasma high density lipoprotein (HDL) cholesterol measurementOrdered By: Braulio Dukes on 12-31-2022 Cholesterol in HDL [Mass/Vol] 49 mg/dL [facility] Serum or plasma total choles terol/high density lipoprotein (HDL) cholesterol mass ratOrdered By: Braulio Dukes on 12-31-2022 Cholesterol.total/Chol esterol in HDL [Mass ratio] 4.0 {ratio} <5.0 [facility] Thyroid Stim Hormone w/Rflxo n 12-31-2022 Thyroid Stim Hormone w/Rflx 15.61 u[iU]/mL High 0.45-5.33 [facility] Comment on above: Result Comment: PERF ORMED BY:[address] [place], [place] [phone] MEDICAL DIRECTORNATALIA MIKE M.D. Performed By: #### T SH3 wRFLX, T4F ####[facility] [place] [address] [facility] Thyrotropin [Units/volume] i n Serum or PlasmaOrdered By: Braulio Dukes on 12-31-2022 TSH Qn 15.61 m[IU]/L 0.45-5.33 [facility] Thyroxine (T4) free [Mass/vo lume] in Serum or PlasmaOrdered By: Braulio Dukes on 12-31-2022 Free T4 [Mass/Vol] 0.74 ng/dL 0.61-1.12 [facility] Triglyceride [Mass/volume] i n Serum or PlasmaOrdered By: Braulio Dukes on 12-31-2022 Triglyceride [Mass/Vol] 132 mg/dL 0-149 [facility] Vitamin D 25 Hydroxy Totalon 12-31-2022 Vitamin D 25 Hydroxy Total 37.4 ng/mL Normal 30-100 [facility] Comment on above: Result Comment: [place] MIN D STATUS 25([place])VITAMIN D RANGE (ng/mL) Deficient <20 Insufficient 20 to <30 Sufficient 30 to 100 Reference: Nathalia MF,Emi NC, Christopher MENJIVAR, et al. Evaluation,treatment, and prevention of vitamin D deficiency; an Endocrine Society clinical practice guideline. JCEM. 2010; 96(7):1911-30.PERFORMED BY:[address] [place] [phone] MEDICAL DIRECTORNATALIA MIKE M.D. Performed By: #### L IPID, [id number] ####[facility] [place] [address] [facility] Vitamin D+Metabolites [Mass/ volume] in Serum or PlasmaOrdered By: Braulio Dukes on 12-31-2022 Vitamin D+Metabolites [Mass/Vol] 37.4 ng/mL 30-100 [facility] Glucose Glucometer (BldC) [M ass/Vol]Ordered By: Maxim Pinto on 12-17-2022 Glucose [Mass/Vol] 327 mg/dL [facility] Glucose Poct Glucometerson 0 12-17-2022 Glucose [Mass/Vol] 327 mg/dL Normal [facility] Comment on above: Result Comment: [facility] Glucose Reference Range is dependent on time and content of last meal. Glucose of more than 200 mg/dL in a nonstressed, ambulatory subject supports the diagnosis of Diabetes Mellitus.PERFORMED BY:[address] [place], [place] [phone] MEDICAL DIRECTORNATALIA MIKE M.D. Performed By: #### G LULS ####Point of Care testing, Glucose [Mass/Vol] 274 mg/dL Normal [facility] Comment on above: Result Comment: [facility] Glucose Reference Range is dependent on time and content of last meal. Glucose of more than 200 mg/dL in a nonstressed, ambulatory subject supports the diagnosis of Diabetes Mellitus.PERFORMED BY:[address] [place], [place] [phone] MEDICAL DIRECTORNATALIA MIKE M.D. Performed By: #### G LULS ####Point of Care testing, Glucose Poct Glucometerson 0 12-16-2022 Commemt1 Glu2: Cleaned Meter Normal [facility] Comment on above: Result Comment: PERF ORMED BY:[address] [place], [place] [phone] MEDICAL DIRECTORNATALIA MIKE M.D. Performed By: #### G LULS ####Point of Care testing, Glucose [Mass/Vol] 274 mg/dL Normal [facility] Comment on above: Result Comment: [place] om Glucose Reference Range is dependent on time and content of last meal. Glucose of more than 200 mg/dL in a nonstressed, ambulatory subject supports the diagnosis of Diabetes Mellitus. Performed By: #### G LULS ####Point of Care testing, Glucose [Mass/Vol] 219 mg/dL Normal [facility] Comment on above: Result Comment: [place] om Glucose Reference Range is dependent on time and content of last meal. Glucose of more than 200 mg/dL in a nonstressed, ambulatory subject supports the diagnosis of Diabetes Mellitus.PERFORMED BY:[address] [place], [place] [phone] MEDICAL DIRECTORNATALIA MIKE M.D. Performed By: #### G LULS ####Point of Care testing, Glucose [Mass/Vol] 253 mg/dL Normal [facility] Comment on above: Result Comment: [place] om Glucose Reference Range is dependent on time and content of last meal. Glucose of more than 200 mg/dL in a nonstressed, ambulatory subject supports the diagnosis of Diabetes Mellitus.PERFORMED BY:[address] [place], [place] [phone] MEDICAL DIRECTORNATALIA MIKE M.D. Performed By: #### G LULS ####Point of Care testing, Glucose [Mass/Vol] 247 mg/dL Normal [facility] Comment on above: Result Comment: [place] om Glucose Reference Range is dependent on time and content of last meal. Glucose of more than 200 mg/dL in a nonstressed, ambulatory subject supports the diagnosis of Diabetes Mellitus.PERFORMED BY:[address] [place], [place] [phone] MEDICAL RONAN MIKE M.D. Performed By: #### G LULS ####Point of Care testing, No Panel InformationOrdered By: Maxim Pinto on 12-16-2022 Glu2: cleaned meter [facility] Glucose Poct Glucometerson 0 12-15-2022 Commemt1 Glu2: Cleaned Meter Normal [facility] Comment on above: Result Comment: PERF ORMED BY:[address] [place], [place] [phone] MEDICAL DIRECTORNATALIA MIKE M.D. Performed By: #### G LULS ####Point of Care testing, Glucose [Mass/Vol] 98 mg/dL Normal [facility] Comment on above: Result Comment: [place] Glucose Reference Range is dependent on time and content of last meal. Glucose of more than 200 mg/dL in a nonstressed, ambulatory subject supports the diagnosis of Diabetes Mellitus. Performed By: #### G LULS ####Point of Care testing, Glucose [Mass/Vol] 174 mg/dL Normal [facility] Comment on above: Result Comment: [place] Glucose Reference Range is dependent on time and content of last meal. Glucose of more than 200 mg/dL in a nonstressed, ambulatory subject supports the diagnosis of Diabetes Mellitus.PERFORMED BY:[address] [place], [place] [phone] MEDICAL RONAN MIKE M.D. Performed By: #### G LULS ####Point of Care testing, Glucose [Mass/Vol] 309 mg/dL Normal [facility] Comment on above: Result Comment: [place] Glucose Reference Range is dependent on time and content of last meal. Glucose of more than 200 mg/dL in a nonstressed, ambulatory subject supports the diagnosis of Diabetes Mellitus.PERFORMED BY:[address] [place], [place] [phone] MEDICAL DIRECTORNATALIA MIKE M.D. Performed By: #### G LULS ####Point of Care testing, Glucose [Mass/Vol] 248 mg/dL Normal [facility] Comment on above: Result Comment: [place] Glucose Reference Range is dependent on time and content of last meal. Glucose of more than 200 mg/dL in a nonstressed, ambulatory subject supports the diagnosis of Diabetes Mellitus.PERFORMED BY:[address] [place], [place] [phone] MEDICAL DIRECTORNAATLIA MIKE M.D. Performed By: #### G LILLY ####Point of Care testing, A1C with Estimated Average José vasquez 12-14-2022 Glucose [Mass/Vol] 223 mg/dL Normal [facility] Comment on above: Result Comment: PERF ORMED BY:[address] [place], [place] [phone] MEDICAL DIRECTORNATALIA MIKE M.D. Performed By: #### A 1C [facility] eA ####[address] [address] [facility] HbA1c (Bld) [Mass fraction] 9.4 % High 4.3-5.6 [facility] Comment on above: Result Comment: Incr eased risk for diabetes: 5.7 - 6.4 diabetes: >6.4 glycemic control for adults with diabetes: <7.0 Performed By: #### A 1C [facility] eA ####[address] [address] [facility] Cholesterol [Mass/volume] in Serum or PlasmaOrdered By: Maxim Pinto on 12-14-2022 Cholesterol [Mass/Vol] 224 mg/dL 140-[address] [facility] Cholesterol in LDL Calc [Mas s/Vol]Ordered By: Maxim Pinto on 12-14-2022 Cholesterol in LDL [Mass/Vol] 134 mg/dL 0-100 [facility] Cholesterol in VLDL Calc [Ma ss/Vol]Ordered By: Maxim Pinto on 12-14-2022 Cholesterol in VLDL [Mass/Vol] 41 mg/dL [facility] ECG 12 lead ECGon 12-14-2022 ECG 12 lead ECG Normal [facility] Free T4 (Free Thyroxine)on 0 12-14-2022 Free T4 [Mass/Vol] 0.57 ng/dL Low 0.61-1.12 [facility] Comment on above: Performed By: #### V [id number], LIPID, T4F, TSH3 wRFLX ####[facility] [id number] [place] [address] [facility] Glucose Poct Glucometerson 0 12-14-2022 Commemt1 Glu2: Cleaned Meter [facility] Comment on above: Result Comment: PERF ORMED BY:[address] [place], [place] [phone] MEDICAL DIRECTORNATALIA MIKE M.D. Performed By: #### G LULS ####Point of Care testing, Glucose [Mass/Vol] 196 mg/dL Normal [facility] Comment on above: Result Comment: [facility] Glucose Reference Range is dependent on time and content of last meal. Glucose of more than 200 mg/dL in a nonstressed, ambulatory subject supports the diagnosis of Diabetes Mellitus. Performed By: #### G LULS ####Point of Care testing, Commemt1 Glu2: Cleaned Meter [facility] Comment on above: Result Comment: PERF ORMED BY:[address] [place], [place] [phone] MEDICAL DIRECTORNATALIA MIKE M.D. Performed By: #### G LULS ####Point of Care testing, Glucose [Mass/Vol] 318 mg/dL Normal [facility] Comment on above: Result Comment: [facility] Glucose Reference Range is dependent on time and content of last meal. Glucose of more than 200 mg/dL in a nonstressed, ambulatory subject supports the diagnosis of Diabetes Mellitus. Performed By: #### G LULS ####Point of Care testing, Commemt1 Glu2: Cleaned Meter [facility] Comment on above: Result Comment: PERF ORMED BY:[address] [place], [place] [phone] MEDICAL DIRECTORNATALIA MIKE M.D. Performed By: #### G LULS ####Point of Care testing, Glucose [Mass/Vol] 373 mg/dL Normal [facility] Comment on above: Result Comment: [place] om Glucose Reference Range is dependent on time and content of last meal. Glucose of more than 200 mg/dL in a nonstressed, ambulatory subject supports the diagnosis of Diabetes Mellitus. Performed By: #### G LULS ####Point of Care testing, Commemt1 Glu2: Cleaned Meter Normal [facility] Comment on above: Result Comment: PERF ORMED BY:[facility] [place], [place] [phone] MEDICAL DIRECTORNATALIA MIKE M.D. Performed By: #### G LULS ####Point of Care testing, Glucose [Mass/Vol] 265 mg/dL Normal [facility] Comment on above: Result Comment: [place] om Glucose Reference Range is dependent on [...] from glycated hemoglobin (Bld) [Mass/Vol] 223 mg/dL [facility] Hemoglobin A1c percentageOrd ered By: Maxim Pinto on 12-14-2022 HbA1c (Bld) [Mass fraction] 9.4 % 4.3-5.6 [facility] Lipid Panelon 12-14-2022 Cholesterol [Mass/Vol] 224 mg/dL High 140-[address] [facility] Comment on above: Result Comment: Chol less than 200 mg/dl low risk Chol 201-239 mg/dl borderline risk Chol 240 mg/dl and greater high risk Performed By: #### V [id number], LIPID, T4F, TSH3 wRFLX ####[facility] [id number] [place] [address] [facility] Cholesterol in HDL [Mass/Vol] 48 mg/dL Normal 23-92 [facility] Comment on above: Result Comment: HDL CHOL ATP-III CLASSIFICATION Cardiovascular Risk HDL > or equal to 60 mg/dL LOW HDL < 40 mg/dL HIGH Performed By: #### V [id number], LIPID, T4F, TSH3 wRFLX ####[facility] [address] [place] [address] [facility] Cholesterol.total/Chol esterol in HDL [Mass ratio] 4.7 {ratio} Normal <5.0 [facility] Comment on above: Performed By: #### V [id number], LIPID, T4F, TSH3 wRFLX ####[facility] [place] [address] [facility] LDL Cholesterol,Calculated 134 mg/dL High 0-100 [facility] Comment on above: Result Comment: LDL ATP III CLASSIFICATION LDL less than 100 mg/dL Optimal LDL 100-129 mg/dL Near or above optimal LDL 130-159 mg/dL Borderline high LDL 160-189 mg/dL High LDL greater than 189 mg/dL Very high Performed By: #### V [id number], LIPID, T4F, TSH3 wRFLX ####[place] [address] Triglyceride w/Reflex 209 mg/dL High 0-149 [facility] Comment on above: Result Comment: TRIG ATP III CLASSIFICATION TRIG less than 150 mg/dL Normal TRIG 150-199 mg/dL Borderline high TRIG 200-500 mg/dL High TRIG greater than 500 mg/dL Very high Standard traceable to the Center for Disease Conrtrol and Prevention (CDC) test method. Performed By: #### V [id number], LIPID, T4F, TSH3 wRFLX ####[place] [address] [place] [address] [facility] VLDL CHOLESTEROL 41 mg/dL Normal [facility] Comment on above: Performed By: #### V [id number], LIPID, T4F, TSH3 wRFLX ####[facility] [place] [address] [facility] Serum or plasma high density lipoprotein (HDL) cholesterol measurementOrdered By: Maxim Pinto on 12-14-2022 Cholesterol in HDL [Mass/Vol] 48 mg/dL 23-92 [facility] Serum or plasma total choles terol/high density lipoprotein (HDL) cholesterol mass ratOrdered By: Maxim Pinto on 12-14-2022 Cholesterol.total/Chol esterol in HDL [Mass ratio] 4.7 {ratio} <5.0 [facility] Thyroid Stim Hormone w/Rflxo n 12-14-2022 Thyroid Stim Hormone w/Rflx 9.79 u[iU]/mL High 0.45-5.33 [facility] Comment on above: Performed By: #### V [id number], LIPID, T4F, TSH3 wRFLX ####[address] [place] [address] [facility] Thyrotropin [Units/volume] i n Serum or PlasmaOrdered By: Maxim Pinto on 12-14-2022 TSH Qn 9.79 m[IU]/L 0.45-5.33 [facility] Thyroxine (T4) free [Mass/vo lume] in Serum or PlasmaOrdered By: Maxim Pinto on 12-14-2022 Free T4 [Mass/Vol] 0.57 ng/dL 0.61-1.12 [facility] Triglyceride [Mass/volume] i n Serum or PlasmaOrdered By: Maxim Pinto on 12-14-2022 Triglyceride [Mass/Vol] 209 mg/dL 0-149 [facility] Vitamin D 25 Hydroxy Totalon 12-14-2022 Vitamin D 25 Hydroxy Total 28.0 ng/mL Low 30-100 [facility] Comment on above: Result Comment: [place] MIN D STATUS 25(OH)VITAMIN D RANGE (ng/mL) Deficient <20 Insufficient 20 to <30 Sufficient 30 to 100 Reference: Nathalia MF,Emi NC, Christopher MENJIVAR, et al. Evaluation,treatment, and prevention of vitamin D deficiency; an Endocrine Society clinical practice guideline. JCEM. 2010; 96(7):1911-30.PERFORMED BY:[address] [place], [place] [phone] MEDICAL DIRECTORNATALIA MIKE M.D. Performed By: #### V [id number], LIPID, T4F, TSH3 wRFLX ####[facility] [id number] [place] [address] [facility] Vitamin D+Metabolites [Mass/ volume] in Serum or PlasmaOrdered By: Maxim Pinto on 12-14-2022 Vitamin D+Metabolites [Mass/Vol] 28.0 ng/mL 30-100 [facility] Glucose Glucometer (BldC) [M ass/Vol]Ordered By: Braulio Dukes on 12-10-2022 Glucose [Mass/Vol] 194 mg/dL [facility] Comment on above: Random Glucose Refer ence Range is dependent on time and content of last meal. Glucose of more than 200 mg/dL in a nonstressed, ambulatory subject supports the diagnosis of Diabetes Mellitus. Glucose Poct Glucometerson 0 12-10-2022 Commemt1 Glu2: Cleaned Meter Normal [facility] Comment on above: Result Comment: PERF ORMED BY:[facility] [place], [place] [phone] MEDICAL DIRECTORNATALIA MIKE M.D. Performed By: #### G LULS ####Point of Care testing, Glucose [Mass/Vol] 194 mg/dL Normal [facility] Comment on above: Result Comment: [place] [facility] Glucose Reference Range is dependent on time and content of last meal. Glucose of more than 200 mg/dL in a nonstressed, ambulatory subject supports the diagnosis of Diabetes Mellitus. Performed By: #### G LULS ####Point of Care testing, Glucose [Mass/Vol] 327 mg/dL Normal [facility] Comment on above: Result Comment: [place] Glucose Reference Range is dependent on time and content of last meal. Glucose of more than 200 mg/dL in a nonstressed, ambulatory subject supports the diagnosis of Diabetes Mellitus.PERFORMED BY:[facility] [place], [place] [phone] MEDICAL DIRECTORNATALIA MIKE M.D. Performed By: #### G LULS ####Point of Care testing, Glucose [Mass/Vol] 279 mg/dL Normal [facility] Comment on above: Result Comment: [place] Glucose Reference Range is dependent on time and content of last meal. Glucose of more than 200 mg/dL in a nonstressed, ambulatory subject supports the diagnosis of Diabetes Mellitus.PERFORMED BY:[place] [address] [address]IPINLeviSorinVANESSASH[place], [place] [phone] MEDICAL DIRECTORNATALIA MIKE M.D. Performed By: #### G LULS ####Point of Care testing, No Panel InformationOrdered By: Braulio Dukes on 12-10-2022 Bedside Glucose Comment Glu2: cleaned meter [facility] Glu2: cleaned meter [facility] Glucose Poct Glucometerson 0 12-09-2022 Glucose [Mass/Vol] 106 mg/dL Normal [facility] Comment on above: Result Comment: [facility] Glucose Reference Range is dependent on time and content of last meal. Glucose of more than 200 mg/dL in a nonstressed, ambulatory subject supports the diagnosis of Diabetes Mellitus.PERFORMED BY:[place] [address] [address] [place]AS[address]V[place], [place] [phone] MEDICAL DIRECTORNATALIA MIKE M.D. Performed By: #### G LULS ####Point of Care testing, Glucose [Mass/Vol] 182 mg/dL Normal [facility] Comment on above: Result Comment: [facility] Glucose Reference Range is dependent on time and content of last meal. Glucose of more than 200 mg/dL in a nonstressed, ambulatory subject supports the diagnosis of Diabetes Mellitus.PERFORMED BY:[place] [address] [address] [place], [place] [phone] MEDICAL DIRECTORNATALIA MIKE M.D. Performed By: #### G LULS ####Point of Care testing, Glucose [Mass/Vol] 306 mg/dL Normal [facility] Comment on above: Result Comment: [facility] Glucose Reference Range is dependent on time and content of last meal. Glucose of more than 200 mg/dL in a nonstressed, ambulatory subject supports the diagnosis of Diabetes Mellitus.PERFORMED BY:[place] [address] [address] [place], [place] [phone] MEDICAL DIRECTORNATALIA MIKE M.D. Performed By: #### G LULS ####Point of Care testing, Glucose [Mass/Vol] 268 mg/dL Normal [facility] Comment on above: Result Comment: [place] Glucose Reference Range is dependent on time and content of last meal. Glucose of more than 200 mg/dL in a nonstressed, ambulatory subject supports the diagnosis of Diabetes Mellitus.PERFORMED BY:[place] [address] [place], [place] [phone] MEDICAL DIRECTORNATALIA MIKE M.D. Performed By: #### G LULS ####Point of Care testing, Glucose Poct Glucometerson 0 12-08-2022 Commemt1 Glu2: Cleaned Meter [facility] Comment on above: Result Comment: PERF ORMED BY:[place] [address] [address] [place], [place] [phone] MEDICAL RONAN MIKE M.D. Performed By: #### G LULS ####Point of Care testing, Glucose [Mass/Vol] 192 mg/dL Normal [facility] Comment on above: Result Comment: [place] Glucose Reference Range is dependent on time and content of last meal. Glucose of more than 200 mg/dL in a nonstressed, ambulatory subject supports the diagnosis of Diabetes Mellitus. Performed By: #### G LULS ####Point of Care testing, Glucose [Mass/Vol] 279 mg/dL Normal [facility] Comment on above: Result Comment: [place] Glucose Reference Range is dependent on time and content of last meal. Glucose of more than 200 mg/dL in a nonstressed, ambulatory subject supports the diagnosis of Diabetes Mellitus.PERFORMED BY:[place] [address] [address] [place], [place] [phone] MEDICAL RONAN MIKE M.D. Performed By: #### G LULS ####Point of Care testing, Commemt1 Glu2: Cleaned Meter [facility] Comment on above: Result Comment: PERF ORMED BY:[place] [address] [place], [place] [phone] MEDICAL RONAN MIKE M.D. Performed By: #### G LULS ####Point of Care testing, Glucose [Mass/Vol] 252 mg/dL Normal [facility] Comment on above: Result Comment: [place] Glucose Reference Range is dependent on time and content of last meal. Glucose of more than 200 mg/dL in a nonstressed, ambulatory subject supports the diagnosis of Diabetes Mellitus. Performed By: #### G LULS ####Point of Care testing, Glucose [Mass/Vol] 301 mg/dL Normal [facility] Comment on above: Result Comment: [place] Glucose Reference Range is dependent on time and content of last meal. Glucose of more than 200 mg/dL in a nonstressed, ambulatory subject supports the diagnosis of Diabetes Mellitus.PERFORMED BY:[place] [address] [place], [place] [phone] MEDICAL DIRECTORNATALIA MIKE M.D. Performed By: #### G LULS ####Point of Care testing, Glucose Poct Glucometerson 0 12-07-2022 Commemt1 Glu2: Cleaned Meter [facility] Comment on above: Result Comment: PERF ORMED BY:[place] [address] [place], [place] [phone] MEDICAL DIRECTORNATALIA MIKE M.D. Performed By: #### G LULS ####Point of Care testing, Glucose [Mass/Vol] 229 mg/dL Normal [facility] Comment on above: Result Comment: [place] Glucose Reference Range is dependent on time and content of last meal. Glucose of more than 200 mg/dL in a nonstressed, ambulatory subject supports the diagnosis of Diabetes Mellitus. Performed By: #### G LULS ####Point of Care testing, Commemt1 Glu2: Cleaned Meter [facility] Comment on above: Result Comment: PERF ORMED BY:[place] [address] [address] [place], [place] [phone] MEDICAL RONAN MIKE M.D. Performed By: #### G LULS ####Point of Care testing, Glucose [Mass/Vol] 138 mg/dL Normal [facility] Comment on above: Result Comment: [place] Glucose Reference Range is dependent on time and content of last meal. Glucose of more than 200 mg/dL in a nonstressed, ambulatory subject supports the diagnosis of Diabetes Mellitus. Performed By: #### G LULS ####Point of Care testing, Commemt1 Glu2: Cleaned Meter Normal [facility] Comment on above: Result Comment: PERF ORMED BY:[place] [address] [address] MEDINAVANESSASH[place], [place] [phone] MEDICAL DIRECTORNATALIA MIKE M.D. Performed By: #### G LULS ####Point of Care testing, Glucose [Mass/Vol] 195 mg/dL Normal [facility] Comment on above: Result Comment: [place] Glucose Reference Range is dependent on time and content of last meal. Glucose of more than 200 mg/dL in a nonstressed, ambulatory subject supports the diagnosis of Diabetes Mellitus. Performed By: #### G LULS ####Point of Care testing, Glucose [Mass/Vol] 332 mg/dL Normal [facility] Comment on above: Result Comment: [place] Glucose Reference Range is dependent on time and content of last meal. Glucose of more than 200 mg/dL in a nonstressed, ambulatory subject supports the diagnosis of Diabetes Mellitus.PERFORMED BY:[place] [address] [address] MEDINAVANESSASHER[place], [place] [phone] MEDICAL DIRECTORNATALIA MIKE M.D. Performed By: #### G LULS ####Point of Care testing, Alanine aminotransferase [En zymatic activity/volume] in Serum or PlasmaOrdered By: Braulio Dukes on 12-06-2022 ALT [Catalytic activity/Vol] 11 U/L [facility] Albumin [Mass/volume] in Ser um or Plasma by Bromocresol green (BCG) dye binding methoOrdered By: Braulio Dukes on 12-06-2022 Albumin BCG dye [Mass/Vol] 4.3 g/dL 3.5-5.7 [facility] Alkaline phosphatase [Enzyma tic activity/volume] in Serum or PlasmaOrdered By: Braulio Dukes on 12-06-2022 ALP [Catalytic activity/Vol] 60 U/L 34-104 [facility] Aspartate aminotransferase [ Enzymatic activity/volume] in Serum or PlasmaOrdered By: Braulio Dukes on 12-06-2022 AST [Catalytic activity/Vol] 11 U/L 13-39 [facility] Basic Metabolic Panelon 11-27 Anion gap [Moles/Vol] 9.7 mmol/L Normal 6.0-15.0 [facility] Comment on above: Performed By: #### B MP, CBC, LIPASE, HEPATIC ####[place] [address] Calcium [Mass/Vol] 9.5 mg/dL Normal 8.6-10.3 [facility] Comment on above: Performed By: #### B MP, CBC, LIPASE, HEPATIC ####[address] Chloride [Moles/Vol] 103 mmol/L Normal 98-107 [facility] Comment on above: Performed By: #### B MP, CBC, LIPASE, HEPATIC ####[place] [id number] [facility] CO2 [Moles/Vol] 31.2 mmol/L High 21.0-31.0 [facility] Comment on above: Performed By: #### B MP, CBC, LIPASE, HEPATIC ####[place] [id number] [facility] Creatinine [Mass/Vol] 0.73 mg/dL Normal 0.60-1.20 [facility] Comment on above: Performed By: #### B MP, CBC, LIPASE, HEPATIC ####[place] [id number] [facility] Creatinine Clr Calc Pharmacy 129.92 Normal [facility] Comment on above: Performed By: #### B MP, CBC, LIPASE, HEPATIC ####[place] [id number] [facility] GFR/1.73 sq M.predicted MDRD (S/P/Bld) [Vol rate/Area] mL/min/{1.73_m2} Normal [facility] Comment on above: Performed By: #### B MP, CBC, LIPASE, HEPATIC ####[place] [address] Glucose [Mass/Vol] 116 mg/dL High 70-100 [facility] Comment on above: Result Comment: [facility] Glucose Reference Range is dependent on time and content of last meal. Glucose of more than 200 mg/dL in a nonstressed, ambulatory subject supports the diagnosis of Diabetes Mellitus. ADA recommended reference range Performed By: #### B MP, CBC, LIPASE, HEPATIC ####[place] [address] Potassium [Moles/Vol] 3.9 mmol/L Normal 3.5-5.1 [facility] Comment on above: Performed By: #### B MP, CBC, LIPASE, HEPATIC ####[address] Sodium [Moles/Vol] 140 mmol/L Normal 136-145 [facility] Comment on above: Performed By: #### B MP, CBC, LIPASE, HEPATIC ####[address] Urea nitrogen [Mass/Vol] 17 mg/dL Normal 7-25 [facility] Comment on above: Performed By: #### B MP, CBC, LIPASE, HEPATIC ####[address] Basophils Auto (Bld) [#/Vol] Ordered By: Gurwinder Philippe on 12-06-2022 Basophils (Bld) [#/Vol] 0.1 10*3/uL 0.0-0.2 [facility] Basophils/100 WBC Auto (Bld) Ordered By: Gurwinder Philippe on 12-06-2022 Basophils/100 WBC (Bld) 1.0 % . [facility] Bilirubin.direct [Mass/volum e] in Serum or PlasmaOrdered By: Gurwinder Philippe on 12-06-2022 Bilirubin.direct [Mass/Vol] 0.10 mg/dL 0.03-0.18 [facility] Bilirubin.total [Mass/volume ] in Serum or PlasmaOrdered By: Braulio Dukes on 12-06-2022 Bilirubin [Mass/Vol] 0.4 mg/dL 0.3-1.0 [facility] C Urineon 12-06-2022 Bacteria identified Cx Nom (U) Normal [facility] Comment on above: Performed By: #### 2 [id number], [id number] ####[facility] [address] [place] [address] CMP with reflex to A1Con Albumin [Mass/Vol] 4.3 g/dL Normal 3.5-5.7 [facility] Comment on above: Performed By: #### C MP wRFX A1C, EBS A1C ####[facility] [address] [place] [address] [facility] Albumin/Globulin [Mass ratio] 1.7 {ratio} Normal [facility] Comment on above: Performed By: #### C MP wRFX A1C, EBS A1C ####[facility] [id number] [place] [address] [facility] ALP [Catalytic activity/Vol] 60 U/L Normal 34-104 [facility] Comment on above: Performed By: #### C MP wRFX A1C, EBS A1C ####[facility] [id number] [place] [address] [facility] ALT [Catalytic activity/Vol] 11 U/L Normal 7-52 [facility] Comment on above: Performed By: #### C MP wRFX A1C, EBS A1C ####[facility] [id number] [place] [address] [place] Anion gap [Moles/Vol] 12.5 mmol/L Normal 6.0-15.[address] [facility] Comment on above: Performed By: #### C MP wRFX A1C, EBS A1C ####[facility] [id number] [place] [address] [facility] AST [Catalytic activity/Vol] 11 U/L Low 13-39 [facility] Comment on above: Performed By: #### C MP wRFX A1C, EBS A1C ####[place] [address] [place] [address] [facility] Bilirubin [Mass/Vol] 0.4 mg/dL Normal 0.3-1.0 [facility] Comment on above: Performed By: #### C MP wRFX A1C, EBS A1C ####[address] [address] [facility] Calcium [Mass/Vol] 9.4 mg/dL Normal 8.6-10.3 [facility] Comment on above: Performed By: #### C MP wRFX A1C, EBS A1C ####[place] [id number] [facility] Chloride [Moles/Vol] 102 mmol/L Normal 98-107 [facility] Comment on above: Performed By: #### C MP wRFX A1C, EBS A1C ####[place] [id number] [facility] CO2 [Moles/Vol] 28.0 mmol/L Normal 21.0-31.0 [facility] Comment on above: Performed By: #### C MP wRFX A1C, EBS A1C ####[place] [id number] [facility] Creatinine [Mass/Vol] 0.94 mg/dL Normal 0.60-1.20 [facility] Comment on above: Performed By: #### C MP wRFX A1C, EBS A1C ####[place] [id number] [facility] Creatinine Clr Calc Pharmacy 101.10 Normal [facility] Comment on above: Result Comment: PERF ORMED BY:[address] [place], [place] [phone] MEDICAL DIRECTORNATALIA MIKE M.D. Performed By: #### C MP wRFX A1C, EBS A1C ####[address] [address] [facility] GFR/1.73 sq M.predicted MDRD (S/P/Bld) [Vol rate/Area] mL/min/{1.73_m2} Normal [facility] Comment on above: Performed By: #### C MP wRFX A1C, EBS A1C ####[facility] [id number] [place] [address] [facility] Globulin (S) [Mass/Vol] 2.6 g/dL Normal [facility] Comment on above: Performed By: #### C MP wRFX A1C, EBS A1C ####[facility] [id number] [place] [address] [facility] Glucose [Mass/Vol] 295 mg/dL High 70-100 [facility] Comment on above: Result Comment: ADA recommended reference range Performed By: #### C MP wRFX A1C, EBS A1C ####[place] [address] [place] [address] [facility] Potassium [Moles/Vol] 4.5 mmol/L Normal 3.5-5.1 [facility] Comment on above: Performed By: #### C MP wRFX A1C, EBS A1C ####[address] [address] [facility] Protein [Mass/Vol] 6.9 g/dL Normal 6.4-8.9 [facility] Comment on above: Performed By: #### C MP wRFX A1C, EBS A1C ####[address] [address] [facility] Sodium [Moles/Vol] 138 mmol/L Normal 136-145 [facility] Comment on above: Performed By: #### C MP wRFX A1C, EBS A1C ####[place] [address] [place] [address] [facility] Urea nitrogen [Mass/Vol] 19 mg/dL Normal 7-25 [facility] Comment on above: Performed By: #### C MP wRFX A1C, EBS A1C ####[facility] [place] [address] [facility] [address] abdomen pelvis wo conon 0 12-06-2022 CT abdomen pelvis wo con Normal [facility] Calcium [Mass/volume] in Ser um or PlasmaOrdered By: Braulio Dukes on 12-06-2022 Calcium [Mass/Vol] 9.4 mg/dL 8.6-10.3 [facility] Carbon dioxide, total [Moles /volume] in Serum or PlasmaOrdered By: Braulio Dukes on 12-06-2022 CO2 [Moles/Vol] 28.0 mmol/L 21.0-31.0 [facility] Chloride [Moles/volume] in S jaron or PlasmaOrdered By: Braulio Dukes on 12-06-2022 Chloride [Moles/Vol] 102 mmol/L 98-107 [facility] Cholesterol [Mass/volume] in Serum or PlasmaOrdered By: Braulio Dukes on 12-06-2022 Cholesterol [Mass/Vol] 244 mg/dL 140-[address] [facility] Comment on above: Chol less than 200 m g/dl low riskChol 201-239 mg/dl borderline riskChol 240 mg/dl and greater high risk Cholesterol in LDL Calc [Mas s/Vol]Ordered By: Braulio Dukes on 12-06-2022 Cholesterol in LDL [Mass/Vol] 137 mg/dL 0-100 [facility] Comment on above: LDL ATP III CLASSIFI CATIONLDL less than 100 mg/dL OptimalLDL 100-129 mg/dL Near or above optimalLDL 130-159 mg/dL Borderline highLDL 160-189 mg/dL HighLDL greater than 189 mg/dL Very high Cholesterol in VLDL Calc [Ma ss/Vol]Ordered By: Braulio Dukes on 12-06-2022 Cholesterol in VLDL [Mass/Vol] 44 mg/dL [facility] Complete Blood Count Auto Di ffon 12-06-2022 Basophils (Bld) [#/Vol] 0.1 10*3/uL Normal 0.0-0.2 [facility] Comment on above: Result Comment: PERF ORMED BY:[facility] [place], [place] [phone] MEDICAL DIRECTORNATALIA MIKE M.D. Performed By: #### B MP, CBC, LIPASE, HEPATIC ####[address] Basophils/100 WBC (Bld) 1.0 % Normal . [facility] Comment on above: Performed By: #### B MP, CBC, LIPASE, HEPATIC ####[address] Eosinophils (Bld) [#/Vol] 0.3 10*3/uL Normal 0.0-0.45 [facility] Comment on above: Performed By: #### B MP, CBC, LIPASE, HEPATIC ####[address] Eosinophils/100 WBC (Bld) 4.3 % Normal . [facility] Comment on above: Performed By: #### B MP, CBC, LIPASE, HEPATIC ####[address] Erythrocyte distribution width (RBC) [Ratio] 12.9 % Normal 11.9-15.3 [facility] Comment on above: Performed By: #### B MP, CBC, LIPASE, HEPATIC ####[address] Hematocrit (Bld) [Volume fraction] 38.6 % Normal 34.0-46.4 [facility] Comment on above: Performed By: #### B MP, CBC, LIPASE, HEPATIC ####[address] Hemoglobin (Bld) [Mass/Vol] 13.4 g/dL Normal 11.8-15.4 [facility] Comment on above: Performed By: #### B MP, CBC, LIPASE, HEPATIC ####[address] Lymphocytes (Bld) [#/Vol] 2.4 10*3/uL Normal 1.00-4.8 [facility] Comment on above: Performed By: #### B MP, CBC, LIPASE, HEPATIC ####[address] Lymphocytes/100 WBC (Bld) 31.5 % Normal . [facility] Comment on above: Performed By: #### B MP, CBC, LIPASE, HEPATIC ####[address] MCH (RBC) [Entitic mass] 29.8 pg Normal 24.7-34.3 [facility] Comment on above: Performed By: #### B MP, CBC, LIPASE, HEPATIC ####[address] MCV (RBC) [Entitic vol] 86.2 fL Normal 80-100 [facility] Comment on above: Performed By: #### B MP, CBC, LIPASE, HEPATIC ####[address] Mean Corpuscular HGB Conc 34.6 g/dL Normal 32.0-35.0 [facility] Comment on above: Performed By: #### B MP, CBC, LIPASE, HEPATIC ####[address] Monocytes (Bld) [#/Vol] 0.6 10*3/uL Normal 0.0-0.8 [facility] Comment on above: Performed By: #### B MP, CBC, LIPASE, HEPATIC ####[address] Monocytes/100 WBC (Bld) 7.3 % Normal . [facility] Comment on above: Performed By: #### B MP, CBC, LIPASE, HEPATIC ####[address] Monocytes/100 WBC (Bld) 17.28 % Normal 0.00-20.00 [facility] Comment on above: Performed By: #### B MP, CBC, LIPASE, HEPATIC ####[address] Neutrophils (Bld) [#/Vol] 4.3 10*3/uL Normal 1.8-7.7 [facility] Comment on above: Performed By: #### B MP, CBC, LIPASE, HEPATIC ####[place] [address] [place] [id number] [facility] Neutrophils/100 WBC (Bld) 55.9 % Normal . [facility] Comment on above: Performed By: #### B MP, CBC, LIPASE, HEPATIC ####[place] [id number] [facility] NRBC% 0.1 /100{WBC} Normal 0-0.5 [facility] Comment on above: Performed By: #### B MP, CBC, LIPASE, HEPATIC ####[place] [id number] [facility] Platelet mean volume (Bld) [Entitic vol] 7.0 fL Normal 6.3-10.7 [facility] Comment on above: Performed By: #### B MP, CBC, LIPASE, HEPATIC ####[address] [address] [facility] Platelets (Bld) [#/Vol] 211 10*3/uL Normal 150-450 [facility] Comment on above: Performed By: #### B MP, CBC, LIPASE, HEPATIC ####[place] [id number] [facility] RBC (Bld) [#/Vol] 4.48 10*6/uL Normal 3.60-5.00 [facility] Comment on above: Performed By: #### B MP, CBC, LIPASE, HEPATIC ####[place] [id number] [facility] WBC (Bld) [#/Vol] 7.8 10*3/uL Normal 3.8-11.6 [facility] Comment on above: Performed By: #### B MP, CBC, LIPASE, HEPATIC ####[place] [id number] [facility] Creatinine [Mass/volume] in Serum or PlasmaOrdered By: Braulio Dukes on 12-06-2022 Creatinine [Mass/Vol] 0.94 mg/dL 0.60-1.20 [facility] EBS A1C with Estimated Ave G ilirn 12-06-2022 Glucose [Mass/Vol] 226 mg/dL Normal [facility] Comment on above: Result Comment: PERF ORMED BY:[facility] [place], [place] [phone] MEDICAL DIRECTORNATALIA MIKE M.D. Performed By: #### C MP wRFX A1C, EBS A1C ####[place] [address] [place] [address] [facility] HbA1c (Bld) [Mass fraction] 9.5 % High 4.3-5.6 [facility] Comment on above: Result Comment: Incr eased risk for diabetes: 5.7 - 6.4 diabetes: >6.4 glycemic control for adults with diabetes: <7.0 Performed By: #### C MP wRFX A1C, EBS A1C ####[place] [address] [place] [id number] [facility] ECG 12 lead ECGon 12-06-2022 ECG 12 lead ECG Normal [facility] Eosinophils Auto (Bld) [#/Vo l]Ordered By: Gurwinder Philippe on 12-06-2022 Eosinophils (Bld) [#/Vol] 0.3 10*3/uL 0.0-0.45 [facility] Eosinophils/100 WBC Auto (Bl d)Ordered By: Gurwinder Philippe on 12-06-2022 Eosinophils/100 WBC (Bld) 4.3 % . [facility] Erythrocyte distribution wid th Auto (RBC) [Ratio]Ordered By: Gurwinder Philippe on 12-06-2022 Erythrocyte distribution width (RBC) [Ratio] 12.9 % 11.9-15.3 [facility] Free T4 (Free Thyroxine)on 0 12-06-2022 Free T4 [Mass/Vol] 0.51 ng/dL Low 0.61-1.12 [facility] Comment on above: Order Comment: FASTI NG Y Comment USE FROM ER PLEASE Performed By: #### V [id number], TSH3 wRFLX, T4F, LIPID ####[place] [address] [place] [address] [facility] [facility] Globulin Calc (S) [Mass/Vol] Ordered By: Braulio Dukes on 12-06-2022 Globulin (S) [Mass/Vol] 2.6 g/dL [facility] Glucose Poct Glucometerson 0 12-06-2022 Commemt1 Glu2: Cleaned Meter Normal [facility] Comment on above: Result Comment: PERF ORMED BY:[facility] [place] [id number] MEDICAL DIRECTORNATALIA MIKE M.D. Performed By: #### G LULS ####Point of Care testing, Glucose [Mass/Vol] 316 mg/dL Normal [facility] Comment on above: Result Comment: [place] Glucose Reference Range is dependent on time and content of last meal. Glucose of more than 200 mg/dL in a nonstressed, ambulatory subject supports the diagnosis of Diabetes Mellitus. Performed By: #### G LULS ####Point of Care testing, Glucose [Mass/volume] in Ser um or PlasmaOrdered By: Braulio Dukes on 12-06-2022 Glucose [Mass/Vol] 295 mg/dL 70-100 [facility] Comment on above: ADA recommended refe rence range Glucose mean value [Mass/vol ume] in Blood Estimated from glycated hemoglobinOrdered By: Braluio Dukes on 12-06-2022 Average glucose Estimated from glycated hemoglobin (Bld) [Mass/Vol] 226 mg/dL [facility] Hematocrit Auto (Bld) [Volum e fraction]Ordered By: Gurwinder Philippe on 12-06-2022 Hematocrit (Bld) [Volume fraction] 38.6 % 34.0-46.4 [facility] Hemoglobin [Mass/volume] in BloodOrdered By: Gurwinder Philippe on 12-06-2022 Hemoglobin (Bld) [Mass/Vol] 13.4 g/dL 11.8-15.4 [facility] Hepatic Panelon 12-06-2022 Albumin [Mass/Vol] 4.7 g/dL Normal 3.5-5.7 [facility] Comment on above: Performed By: #### B MP, CBC, LIPASE, HEPATIC ####[facility] [id number] Albumin/Globulin [Mass ratio] 1.6 {ratio} Normal [facility] Comment on above: Performed By: #### B MP, CBC, LIPASE, HEPATIC ####[address] ALP [Catalytic activity/Vol] 72 U/L Normal 34-104 [facility] Comment on above: Performed By: #### B MP, CBC, LIPASE, HEPATIC ####[address] ALT [Catalytic activity/Vol] 13 U/L Normal 7-52 [facility] Comment on above: Performed By: #### B MP, CBC, LIPASE, HEPATIC ####[address] AST [Catalytic activity/Vol] 12 U/L Low 13-39 [facility] Comment on above: Performed By: #### B MP, CBC, LIPASE, HEPATIC ####[address] Bilirubin [Mass/Vol] 0.4 mg/dL Normal 0.3-1.0 [facility] Comment on above: Performed By: #### B MP, CBC, LIPASE, HEPATIC ####[address] Bilirubin,Indirect 0.3 mg/dL Normal [facility] Comment on above: Performed By: #### B MP, CBC, LIPASE, HEPATIC ####[address] Bilirubin.indirect [Mass/Vol] 0.10 mg/dL Normal 0.03-0.18 [facility] Comment on above: Performed By: #### B MP, CBC, LIPASE, HEPATIC ####[address] Globulin (S) [Mass/Vol] 3.0 g/dL Normal [facility] Comment on above: Performed By: #### B MP, CBC, LIPASE, HEPATIC ####[place] [address] [facility] Protein [Mass/Vol] 7.7 g/dL Normal 6.4-8.9 [facility] Comment on above: Performed By: #### B MP, CBC, LIPASE, HEPATIC ####[facility] [place] [address] [facility] Laboratory - Hematology and Cell countsOrdered By: Braulio Dukes on 12-06-2022 HbA1c (Bld) [Mass fraction] 9.5 % 4.3-5.6 [facility] Comment on above: Increased risk for d iabetes: 5.7 - 6.4diabetes: >6.4glycemic control for adults with diabetes: <7.0 Leukocytes [#/volume] correc suzanne for nucleated erythrocytes in Blood by Automated counOrdered By: Gurwinder Philippe on 12-06-2022 WBC corrected for nucl RBC Auto (Bld) [#/Vol] 7.8 10*3/uL 3.8-11.6 [facility] Lipaseon 12-06-2022 Lipase [Catalytic activity/Vol] 26.0 U/L Normal 11.0-82.0 [facility] Comment on above: Result Comment: PERF ORMED BY:[address] [place], [place] [phone] MEDICAL RONAN MIKE M.D. Performed By: #### B MP, CBC, LIPASE, HEPATIC ####[address] [place] [address] [facility] Lipase [Enzymatic activity/v olume] in Serum or PlasmaOrdered By: Gurwinder Philippe on 12-06-2022 Lipase [Catalytic activity/Vol] 26.0 U/L 11.0-82.0 [facility] Lipid Panelon 12-06-2022 Cholesterol [Mass/Vol] 244 mg/dL High 140-[address] [facility] Comment on above: Order Comment: FASTKalpana ALVARADO Y Comment USE FROM ER PLEASE Result Comment: Chol less than 200 mg/dl low risk Chol 201-239 mg/dl borderline risk Chol 240 mg/dl and greater high risk Performed By: #### V [id number], TSH3 wRFLX, T4F, LIPID ####[facility] [place] [address] [facility] Cholesterol in HDL [Mass/Vol] 62 mg/dL Normal 23-92 [facility] Comment on above: Order Comment: ELENA Vitale Comment USE FROM ER PLEASE Result Comment: HDL CHOL ATP-III CLASSIFICATION Cardiovascular Risk HDL > or equal to 60 mg/dL LOW HDL < 40 mg/dL HIGH Performed By: #### V [id number], TSH3 wRFLX, T4F, LIPID ####[facility] [place] [address] [facility] Cholesterol.total/Chol esterol in HDL [Mass ratio] 3.9 {ratio} Normal <5.0 [facility] Comment on above: Order Comment: ELENA Vitale Comment USE FROM ER PLEASE Performed By: #### V [id number], TSH3 wRFLX, T4F, LIPID ####[address] [place] [address] [facility] LDL Cholesterol,Calculated 137 mg/dL High 0-100 [facility] Comment on above: Order Comment: ELENA Vitale Comment USE FROM ER PLEASE Result Comment: LDL ATP III CLASSIFICATION LDL less than 100 mg/dL Optimal LDL 100-129 mg/dL Near or above optimal LDL 130-159 mg/dL Borderline high LDL 160-189 mg/dL High LDL greater than 189 mg/dL Very high Performed By: #### V [id number], TSH3 wRFLX, T4F, LIPID ####[address] [place] [address] [facility] Triglyceride w/Reflex 224 mg/dL High 0-149 [facility] Comment on above: Order Comment: ELENA Vitale Comment USE FROM ER PLEASE Result Comment: TRIG ATP III CLASSIFICATION TRIG less than 150 mg/dL Normal TRIG 150-199 mg/dL Borderline high TRIG 200-500 mg/dL High TRIG greater than 500 mg/dL Very high Standard traceable to the Center for Disease Conrtrol and Prevention (CDC) test method. Performed By: #### V [id number], TSH3 wRFLX, T4F, LIPID ####[facility] [place] [address] [facility] VLDL CHOLESTEROL 44 mg/dL Normal [facility] Comment on above: Order Comment: ELENA Vitale Comment USE FROM ER PLEASE Performed By: #### V [id number], TSH3 wRFLX, T4F, LIPID ####[facility] [id number] [place] [address] [facility] Lymphocytes Auto (Bld) [#/Vo l]Ordered By: Gurwinder Philippe on 12-06-2022 Lymphocytes (Bld) [#/Vol] 2.4 10*3/uL 1.00-4.8 [facility] Lymphocytes/100 WBC Auto (Bl d)Ordered By: Gurwinder Philippe on 12-06-2022 Lymphocytes/100 WBC (Bld) 31.5 % . [facility] MCH Auto (RBC) [Entitic mass ]Ordered By: Gurwinder Philippe on 12-06-2022 MCH (RBC) [Entitic mass] 29.8 pg 24.7-34.3 [facility] MCHC Auto (RBC) [Mass/Vol]Or dered By: Gurwinder Philippe on 12-06-2022 MCHC (RBC) [Mass/Vol] 34.6 g/dL 32.0-35.0 [facility] MCV Auto (RBC) [Entitic vol] Ordered By: Gurwinder Philippe on 12-06-2022 MCV (RBC) [Entitic vol] 86.2 fL 80-100 [facility] Monocyte distribution width [Entitic volume] in Blood by AutomatedOrdered By: Gurwinder Philippe on 12-06-2022 Monocyte distribution width Auto (Bld) [Entitic vol] 17.28 % 0.00-20.00 [facility] Monocytes Auto (Bld) [#/Vol] Ordered By: Gurwinder Philippe on 12-06-2022 Monocytes (Bld) [#/Vol] 0.6 10*3/uL 0.0-0.8 [facility] Monocytes/100 WBC Auto (Bld) Ordered By: Gurwinder Philippe on 12-06-2022 Monocytes/100 WBC (Bld) 7.3 % . [facility] Neutrophils Auto (Bld) [#/Vo l]Ordered By: Gurwinder Philippe on 12-06-2022 Neutrophils (Bld) [#/Vol] 4.3 10*3/uL 1.8-7.7 [facility] Neutrophils/100 WBC Auto (Bl d)Ordered By: Gurwinder Philippe on 12-06-2022 Neutrophils/100 WBC (Bld) 55.9 % . [facility] No Panel InformationOrdered By: Braulio Dukes on 12-06-2022 Estimated GFR (CKD-EPI) > 60.0 mL/Min [facility] Pharmacy Creatinine Clearance (Chem 101.10 [facility] > 60.0 mL/Min [facility] 101.10 [facility] 9.5 % 4.3-5.6 [facility] Nucleated erythrocytes [Pres ence] in Blood by Automated countOrdered By: Gurwinder Philippe on 12-06-2022 Nucleated RBC Auto Ql (Bld) 0.1 /100{WBC} 0-0.5 [facility] Platelet mean volume Auto (B ld) [Entitic vol]Ordered By: Gurwinder Philippe on 12-06-2022 Platelet mean volume (Bld) [Entitic vol] 7.0 fL 6.3-10.7 [facility] Platelets Auto (Bld) [#/Vol] Ordered By: Gurwinder Philippe on 12-06-2022 Platelets (Bld) [#/Vol] 211 10*3/uL 150-450 [facility] Potassium [Moles/volume] in Serum or PlasmaOrdered By: Braulio Dukes on 12-06-2022 Potassium [Moles/Vol] 4.5 mmol/L 3.5-5.1 [facility] Protein [Mass/volume] in Ser um or PlasmaOrdered By: Braulio Dukes on 12-06-2022 Protein [Mass/Vol] 6.9 g/dL 6.4-8.9 [facility] RBC Auto (Bld) [#/Vol]Ordere d By: Gurwinder Philippe on 12-06-2022 RBC (Bld) [#/Vol] 4.48 10*6/uL 3.60-5.00 [facility] Serum or plasma albumin/glob ulin mass ratioOrdered By: Braulio Dukes on 12-06-2022 Albumin/Globulin [Mass ratio] 1.7 {ratio} [facility] Serum or plasma anion gap de terminationOrdered By: Braulio Dukes on 12-06-2022 Anion gap [Moles/Vol] 12.5 mmol/L 6.0-15.[address] [facility] Serum or plasma high density lipoprotein (HDL) cholesterol measurementOrdered By: Braulio Dukes on 12-06-2022 Cholesterol in HDL [Mass/Vol] 62 mg/dL 23-92 [facility] Comment on above: HDL CHOL ATP-III CLA SSIFICATION Cardiovascular RiskHDL > or equal to 60 mg/dL LOWHDL < 40 mg/dL HIGH Serum or plasma non-glucuron idated bilirubin measurement (mass/volume)Ordered By: Gurwinder Philippe on 12-06-2022 Bilirubin.indirect [Mass/Vol] 0.3 mg/dL [facility] Serum or plasma total choles terol/high density lipoprotein (HDL) cholesterol mass ratOrdered By: Braulio Dukes on 12-06-2022 Cholesterol.total/Chol esterol in HDL [Mass ratio] 3.9 {ratio} <5.0 [facility] Sodium [Moles/volume] in Ser um or PlasmaOrdered By: Braulio Dukes on 12-06-2022 Sodium [Moles/Vol] 138 mmol/L 136-145 [facility] Thyroid Stim Hormone w/Rflxo n 12-06-2022 Thyroid Stim Hormone w/Rflx 24.60 u[iU]/mL High 0.45-5.33 [facility] Comment on above: Order Comment: FASTI JENNY Y Comment USE FROM ER PLEASE Performed By: #### V [id number], TSH3 wRFLX, T4F, LIPID ####[facility] [id number] [place] [address] [facility] Thyrotropin [Units/volume] i n Serum or PlasmaOrdered By: Braulio Dukes on 12-06-2022 TSH Qn 24.60 m[IU]/L 0.45-5.33 [facility] Thyroxine (T4) free [Mass/vo lume] in Serum or PlasmaOrdered By: Braulio Dukes on 12-06-2022 Free T4 [Mass/Vol] 0.51 ng/dL 0.61-1.12 [facility] Triglyceride [Mass/volume] i n Serum or PlasmaOrdered By: Braulio Dukes on 12-06-2022 Triglyceride [Mass/Vol] 224 mg/dL 0-149 [facility] Comment on above: TRIG ATP III CLASSIF ICATIONTRIG less than 150 mg/dL NormalTRIG 150-199 mg/dL Borderline highTRIG 200-500 mg/dL High TRIG greater than 500 mg/dL Very highStandard traceable to the Center for Disease Conrtrol and Prevention (CDC) test method. Urea nitrogen [Mass/volume] in Serum or PlasmaOrdered By: Braulio Dukes on 12-06-2022 Urea nitrogen [Mass/Vol] 19 mg/dL 7-25 [facility] Vitamin D 25 Hydroxy Totalon 12-06-2022 Vitamin D 25 Hydroxy Total 36.4 ng/mL Normal 30-100 [facility] Comment on above: Order Comment: ELENA ALVARADO Y Comment USE FROM ER PLEASE Result Comment: ELIAS MIN D STATUS 25([place])VITAMIN D RANGE (ng/mL) Deficient <20 Insufficient 20 to <30 Sufficient 30 to 100 Reference: Nathalia MF,Emi NC, Christopher MENJIVAR, et al. Evaluation,treatment, and prevention of vitamin D deficiency; an Endocrine Society clinical practice guideline. JCEM. 2010; 96(7):1911-30.PERFORMED BY:[facility] [place], [place] [phone] MEDICAL DIRECTORNATALIA MIKE M.D. Performed By: #### V [id number], TSH3 wRFLX, T4F, LIPID ####[facility] [place] [address] [place] Vitamin D+Metabolites [Mass/ volume] in Serum or PlasmaOrdered By: Braulio Dukes on 12-06-2022 Vitamin D+Metabolites [Mass/Vol] 36.4 ng/mL 30-100 [facility] Comment on above: VITAMIN D STATUS 25( [place])VITAMIN D RANGE (ng/mL) Deficient <20 Insufficient 20 to <30Sufficient 30 to 100Reference: Nathalia MF,Emi DUFFY, Christopher MENJIVAR, et al. Evaluation,treatment, and prevention of vitamin D deficiency; an Endocrine Society clinical practice guideline. JCEM. 2010; 96(7):1911-30. WBC Auto (Bld) [#/Vol]Ordere d By: Gurwinder Philippe on 12-06-2022 WBC (Bld) [#/Vol] 7.8 10*3/uL 3.8-11.6 [facility] Amphetamine Screen Ql (U)Ord ered By: Damian Carpenter on 12-05-2022 Amphetamines Ql (U) Negative Negative [facility] Automated erythrocytes count in urine sediment (number/area)Ordered By: Damian Carpenter on 12-05-2022 RBC Auto (Urine sed) [#/Area] Innumerable [HPF] 0-4 [facility] Automated leukocytes count i n urine sediment (number/area)Ordered By: Damian Carpenter on 12-05-2022 WBC Auto (Urine sed) [#/Area] 10-19 [HPF] 0-4 [facility] Barbiturates [Presence] in U rine by Screen methodOrdered By: Damian Carpenter on 12-05-2022 Barbiturates Screen Ql (U) Negative Negative [facility] Benzodiazepines Screen Ql (U )Ordered By: Damian Carpenter on 12-05-2022 Benzodiazepines Ql (U) Negative Negative [facility] Benzoylecgonine [Presence] i n Urine by Screen methodOrdered By: Damian Carpenter on 12-05-2022 Benzoylecgonine Screen Ql (U) Negative Negative [facility] Bilirubin Test strip Ql (U)O rdered By: Damian Carpenter on 12-05-2022 Bilirubin Ql (U) Negative Negative [facility] Cannabinoids [Presence] in U rine by Screen methodOrdered By: Damian Carpenter on 12-05-2022 Cannabinoids Screen Ql (U) Negative Negative [facility] Comment on above: These are unconfirme d results and should not be used for legal purposes. Drug Cut-Off Concentration: AMPH 1000 ng/mL MARGARITA 200 ng/mL JEREMY 200 ng/mL COCM 300 ng/mL OP 300 ng/mL PCP 25 ng/mL THC 20 ng/mL Color Auto (U)Ordered By: Roshni Carpenter on 12-05-2022 Color (U) Yellow Yellow [facility] Dipstick and Microscopicon 0 12-05-2022 Appearance (U) Cloudy Critically abnormal Clear [facility] Comment on above: Order Comment: Name Collection Type:: Clean-Voided Midstream Performed By: #### A DDONUAPLUS, UHCG, CUU ####[address] Bacteria,Urine None Seen Normal None Seen [facility] Comment on above: Order Comment: Name Collection Type:: Clean-Voided Midstream Performed By: #### A DDONUAPLUS, UHCG, CUU ####[address] Bilirubin,Urine Negative Normal Negative [facility] Comment on above: Order Comment: Name Collection Type:: Clean-Voided Midstream Performed By: #### A DDONUAPLUS, UHCG, CUU ####[place] [id number] [facility] Color (U) Yellow Normal Yellow [facility] Comment on above: Order Comment: Name Collection Type:: Clean-Voided Midstream Performed By: #### A DDONUAPLUS, UHCG, CUU ####[place] [id number] [facility] Glucose Ql (U) 250 mg/dL High Normal [facility] Comment on above: Order Comment: Name Collection Type:: Clean-Voided Midstream Performed By: #### A DDONUAPLUS, UHCG, CUU ####[place] [id number] [facility] Hyaline Casts,Urine None Seen Normal 0-8 [facility] Comment on above: Order Comment: Name Collection Type:: Clean-Voided Midstream Performed By: #### A DDONUAPLUS, UHCG, CUU ####[address] [address] [facility] Ketones Ql (U) Negative Normal Negative [facility] Comment on above: Order Comment: Name Collection Type:: Clean-Voided Midstream Performed By: #### A DDONUAPLUS, UHCG, CUU ####[address] [address] [facility] Leukocyte esterase Test strip Ql (U) 2+ High Negative [facility] Comment on above: Order Comment: Name Collection Type:: Clean-Voided Midstream Performed By: #### A DDONUAPLUS, UHCG, CUU ####[place] [id number] [facility] Nitrite,Urine Negative Normal Negative [facility] Comment on above: Order Comment: Name Collection Type:: Clean-Voided Midstream Performed By: #### A DDONUAPLUS, UHCG, CUU ####[place] [id number] [facility] Occult Blood,Urine 3+ High Negative [facility] Comment on above: Order Comment: Name Collection Type:: Clean-Voided Midstream Performed By: #### A DDONUAPLUS, UHCG, CUU ####[address] [address] [facility] pH (U) 5.5 [pH] Normal 5.0-9.0 [facility] Comment on above: Order Comment: Name Collection Type:: Clean-Voided Midstream Performed By: #### A DDONUAPLUS, UHCG, CUU ####[address] [address] [facility] Protein,Urine Negative Normal Negative [facility] Comment on above: Order Comment: Name Collection Type:: Clean-Voided Midstream Performed By: #### A DDONUAPLUS, UHCG, CUU ####[address] [address] [facility] RBC,Urine Innumerable High 0-4 [facility] Comment on above: Order Comment: Name Collection Type:: Clean-Voided Midstream Performed By: #### A DDONUAPLUS, UHCG, CUU ####[address] Specificy Dent,Urine 1.025 Normal 1.001-1.03 0 [facility] Comment on above: Order Comment: Name Collection Type:: Clean-Voided Midstream Performed By: #### A DDONUAPLUS, UHCG, CUU ####[address] [address] [facility] Squamous Epithelial Cell,Urine 5-9 High 0-2 [facility] Comment on above: Order Comment: Name Collection Type:: Clean-Voided Midstream Performed By: #### A DDONUAPLUS, UHCG, CUU ####[address] [address] Urobilinogen,Urine Normal Normal Normal [facility] Comment on above: Order Comment: Name Collection Type:: Clean-Voided Midstream Performed By: #### A DDONUAPLUS, UHCG, CUU ####[address] [address] [facility] WBC,Urine 10-19 High 0-4 [facility] Comment on above: Order Comment: Name Collection Type:: Clean-Voided Midstream Performed By: #### A DDONUAPLUS, UHCG, CUU ####[place] [id number] [facility] Discharge Instructionson Discharge Instructions [id number]:1 27 Normal [facility] Drug Screen,Urineon 12-06-19 23 Amphetamine Screen,Urine Negative Normal Negative [facility] Comment on above: Performed By: #### U RDS ####[address] Barbiturate Screen,Urine Negative Normal Negative [facility] Comment on above: Performed By: #### U RDS ####[place] [id number] [facility] Benzodiazepines Screen,Urine Negative Normal Negative [facility] Comment on above: Performed By: #### U RDS ####[place] [id number] [facility] Cannabinoid Screen,Urine Negative Normal Negative [facility] Comment on above: Result Comment: Thes e are unconfirmed results and should not be used for legal purposes. Drug Cut-Off Concentration: AMPH 1000 ng/mL MARGARITA 200 ng/mL JEREMY 200 ng/mL COCM 300 ng/mL OP 300 ng/mL PCP 25 ng/mL THC 20 ng/mLPERFORMED BY:[address] [place], [place] [phone] MEDICAL DIRECTORNATALIA MIKE M.D. Performed By: #### U RDS ####[place] [id number] [facility] Cocaine Screen,Urine Negative Normal Negative [facility] Comment on above: Performed By: #### U RDS ####[place] [id number] [facility] Opiate Screen,Urine Negative Normal Negative [facility] Comment on above: Performed By: #### U RDS ####[place] [id number] [facility] Phencyclidine Screen,Urine Negative Normal Negative [facility] Comment on above: Performed By: #### U RDS ####[address] HCG ( test) IA.rapi d Ql (U)Ordered By: PROVIDER TEMP on 12-05-2022 HCG ( test) Ql (U) Negative [facility] HCG,Urineon 12-05-2022 Beta HCG ( test) Ql (U) Negative Normal [facility] Comment on above: Order Comment: Name Collection Type:: Clean-Voided Midstream Result Comment: PERF ORMED BY:[address] [place], [place] [phone] MEDICAL DIRECTORNATALIA MIKE M.D. Performed By: #### A DDONUAPLUS, [facility] ####[facility] [id number] Ketones Auto test strip (U) [Mass/Vol]Ordered By: Damian Carpenter on 12-05-2022 Ketones (U) [Mass/Vol] Negative Negative [facility] Laboratory - UrinalysisOrder ed By: Damian Carpenter on 12-05-2022 Hyaline casts LM Ql (Urine sed) None seen [LPF] 0-8 [facility] Nitrite Test strip Ql (U)Ord ered By: Damian Carpenter on 12-05-2022 Nitrite Ql (U) Negative Negative [facility] No Panel InformationOrdered By: Damian Carpenter on 12-05-2022 None seen [LPF] 0-8 [facility] Opiates [Presence] in Urine by Screen methodOrdered By: Damian Carpenter on 12-05-2022 Opiates Screen Ql (U) Negative Negative [facility] Phencyclidine Screen Ql (U)O rdered By: Damian Carpenter on 12-05-2022 Phencyclidine Ql (U) Negative Negative [facility] Protein Auto test strip (U) [Mass/Vol]Ordered By: Damian Carpenter on 12-05-2022 Protein (U) [Mass/Vol] Negative Negative [facility] Specific gravity Auto test s trip (U) [Rel density]Ordered By: Damian Carpenter on 12-05-2022 Specific gravity (U) [Rel density] 1.025 1.001-1.03 0 [facility] Squamous epithelial cells de tection in urine sediment by light microscopyOrdered By: Damian Carpenter on 12-05-2022 Epithelial cells.squamous LM Ql (Urine sed) 5-9 [HPF] 0-2 [facility] Urine Cultureon 12-05-2022 Bacteria identified Cx Nom (U) Normal [facility] Comment on above: Performed By: #### A JO[place], [facility] [place] ####[facility] [address] Urine bacteria detection by automated methodOrdered By: Damian Carpenter on 12-05-2022 Bacteria Auto Ql (U) None seen None Seen [facility] Urine clarity by refractomet ry automatedOrdered By: Damian Carpenter on 12-05-2022 Clarity Refractometry automated (U) Cloudy Clear [facility] Urine culture routineOrdered By: Damian Carpenter on 12-05-2022 Bacteria identified Cx Nom (U) 2 Days [facility] Urine glucose measurement by automated test strip (mass/volume)Ordered By: Damian Carpenter on 12-05-2022 Glucose Auto test strip (U) [Mass/Vol] 250 mg/dL Normal [facility] Urine hemoglobin detection b y automated test stripOrdered By: Damian Carpenter on 12-05-2022 Hemoglobin Auto test strip Ql (U) 3+ Negative [facility] Urine leukocyte esterase det ection by automated test stripOrdered By: Damian Carpenter on 12-05-2022 Leukocyte esterase Auto test strip Ql (U) 2+ Negative [facility] Urobilinogen Auto test strip (U) [Mass/Vol]Ordered By: Damian Carpenter on 12-05-2022 Urobilinogen (U) [Mass/Vol] Normal mg/dL Normal [facility] pH Auto test strip (U)Ordere d By: Damian Carpenter on 12-05-2022 pH (U) 5.5 [pH] 5.0-9.0 [facility] Auto Diffon 12-04-2022 Basophils/100 WBC (Bld) 1.0 % Normal 0.0-2.0 [facility] Comment on above: Order Comment: Order Added by Discern Expert. Performed By: #### 2 314657, 08920381, 5263770, 4261726, 8976366 ####[facility] [address] [place] [address] Basophils/Leukocytes Auto (Bld) [Pure # fraction] 0.1 E9/L Normal 0.0-0.2 [facility] Comment on above: Order Comment: Order Added by Discern Expert. Performed By: #### 2 670844, 97248367, 0679310, 5311320, 8288119 ####[facility] [address] [place] [address] Eosinophils/100 WBC (Bld) 3.3 % Normal 0.0-8.0 [facility] Comment on above: Order Comment: Order Added by Ariel Expert. Performed By: #### 2 891110, 59920685, 9787616, 0290494, 7049325 ####[place] [place] [address] Eosinophils/Leukocytes Auto (Bld) [Pure # fraction] 0.2 E9/L Normal 0.0-0.5 [facility] Comment on above: Order Comment: Order Added by Discern Expert. Performed By: #### 2 958281, 84336547, 3537808, 1471014, 4231077 ####[address] [place] [address] Lymphocytes/100 WBC (Bld) 28.3 % Normal 14.0-50.0 [facility] Comment on above: Order Comment: Order Added by Ariel Expert. Performed By: #### 2 727498, 85956970, 7709887, 9323364, 5184825 ####[address] [address] Lymphocytes/Leukocytes Auto (Bld) [Pure # fraction] 2.1 E9/L Normal 1.0-4.0 [facility] Comment on above: Order Comment: Order Added by Ariel Expert. Performed By: #### 2 453312, 05510450, 0454968, 5421728, 5750666 ####[address] [address] Monocytes/100 WBC (Bld) 6.0 % Normal 4.0-14.0 [facility] Comment on above: Order Comment: Order Added by Ariel Expert. Performed By: #### 2 449929, 08177010, 2105530, 3632465, 3875922 ####[address] [address] Monocytes/Leukocytes Auto (Bld) [Pure # fraction] 0.4 E9/L Normal 0.2-1.0 [facility] Comment on above: Order Comment: Order Added by Ariel Expert. Performed By: #### 2 576141, 25455250, 5357206, 3782005, 6324800 ####[facility] [address] [place] [address] Neutrophils/100 WBC (Bld) 61.4 % Normal 36.0-75.0 [facility] Comment on above: Order Comment: Order Added by Discern Expert. Performed By: #### 2 967948, 45597056, 5594172, 5439383, 9556603 ####[facility] [address] [place] [address] Neutrophils/Leukocytes Auto (Bld) [Pure # fraction] 4.6 E9/L Normal 2.0-7.5 [facility] Comment on above: Order Comment: Order Added by Discern Expert. Performed By: #### 2 471200, 08187687, 1694896, 6295645, 7862047 ####[facility] [address] [place] [address] BMPon 12-04-2022 Creatinine [Mass/Vol] 0.7 mg/dL Normal 0.5-1.3 [facility] Comment on above: Order Comment: pt ge tting an iv [id number] 12/04/2022 16:56:35 EDT Performed By: #### 2 287300, 09120642, 1740038, 2105423, 7665005 ####[facility] [address] [place] [address] Urea nitrogen [Mass/Vol] 15 mg/dL Normal 5-21 [facility] Comment on above: Order Comment: pt ge tting an iv [id number] 12/04/2022 16:56:35 EDT Performed By: #### 2 523001, 65962409, 9052856, 8845580, 2764968 ####[facility] [address] [place] [address] Urea nitrogen/Creatinine [Mass ratio] 21 No Units High 10-20 [facility] Comment on above: Order Comment: pt ge tting an iv [id number] 12/04/2022 16:56:35 EDT Performed By: #### 2 700722, 40355537, 9635295, 1774906, 4611451 ####[facility] [address] [place] [address] Anion gap [Moles/Vol] 14 mmol/L Normal 6-16 [facility] Comment on above: Order Comment: pt ge tting an iv [id number] 12/04/2022 16:56:35 EDT Performed By: #### 2 963825, 47471194, 5833815, 8618928, 0505733 ####[facility] [address] [place] [address] Calcium [Mass/Vol] 9.9 mg/dL Normal 8.9-11.1 [facility] Comment on above: Order Comment: pt ge tting an iv [id number] 12/04/2022 16:56:35 EDT Performed By: #### 2 733273, 88320559, 2301590, 0609306, 0781149 ####[facility] [address] [place] [address] Chloride [Moles/Vol] 103 mmol/L Normal 101-111 [facility] Comment on above: Order Comment: pt ge tting an iv [id number] 12/04/2022 16:56:35 EDT Performed By: #### 2 375084, 23381857, 6392840, 8826025, 7904534 ####[facility] [address] [place] [address] CO2 [Moles/Vol] 26 mmol/L Normal 21-[address] [facility] Comment on above: Order Comment: pt ge tting an iv [id number] 12/04/2022 16:56:35 EDT Performed By: #### 2 278494, 29573512, 2925281, 6561772, 1399960 ####[facility] [address] [place] [address] Glucose [Mass/Vol] 180 mg/dL Normal 55-199 [facility] Comment on above: Order Comment: pt ge tting an iv [id number] 12/04/2022 16:56:35 EDT Result Comment: If t his glucose result represents a fasting glucose, interpretation should refer to the following reference range: 55-99 mg/dL Performed By: #### 2 712526, 43910703, 6010803, 1285923, 7133323 ####[facility] [address] [place] [address] Potassium [Moles/Vol] 3.6 mmol/L Normal 3.5-5.3 [facility] Comment on above: Order Comment: pt ge tting an iv [id number] 12/04/2022 16:56:35 EDT Performed By: #### 2 394783, 54581605, 5930214, 5186328, 8552254 ####[facility] [address] [place] [address] Sodium [Moles/Vol] 139 mmol/L Normal 135-145 [facility] Comment on above: Order Comment: pt ge tting an iv [id number] 12/04/2022 16:56:35 EDT Performed By: #### 2 707233, 74247607, 9899383, 7353634, 0116188 ####[facility] [address] [place] [address] CBC w/ Auto Diffon 3 Erythrocyte distribution width (RBC) [Ratio] 12.8 % Normal 10.9-14.2 [facility] Comment on above: Performed By: #### 2 125887, 22911810, 4558185, 5852359, 7645311 ####[address] [address] Hematocrit (Bld) [Volume fraction] 40.5 % Normal 34.0-46.0 [facility] Comment on above: Performed By: #### 2 666849, 29514259, 9571719, 2526259, 0553919 ####[facility] [address] [place] [address] Hemoglobin (Bld) [Mass/Vol] 13.9 g/dL Normal 12.0-16.0 [facility] Comment on above: Performed By: #### 2 209643, 49050747, 7656425, 5648765, 1363835 ####[facility] [address] [place] [address] MCH (RBC) [Entitic mass] 29.5 pg Normal 27.0-34.0 [facility] Comment on above: Performed By: #### 2 348384, 56900660, 4471059, 5045718, 0141911 ####[place] [address] MCHC (RBC) [Mass/Vol] 34.2 g/dL Normal 31.4-36.0 [facility] Comment on above: Performed By: #### 2 431056, 42030766, 5249348, 4618304, 4447234 ####[place] [address] MCV (RBC) [Entitic vol] 86.2 fL Normal 80.0-100.0 [facility] Comment on above: Performed By: #### 2 655872, 69995855, 3261424, 8603980, 2311631 ####[address] [address] Platelet mean volume (Bld) [Entitic vol] 7.3 fL Normal 6.4-10.8 [facility] Comment on above: Performed By: #### 2 114102, 89051290, 7360665, 6246960, 9311023 ####[place] [address] Platelets (Bld) [#/Vol] 210.0 E9/L Normal 150.0-500. 0 [facility] Comment on above: Performed By: #### 2 925364, 31240131, 4702890, 7230777, 9654700 ####[address] [address] RBC (Bld) [#/Vol] 4.7 E12/L Normal 4.3-5.9 [facility] Comment on above: Performed By: #### 2 282012, 31716664, 6415092, 9676780, 0503519 ####[facility] [address] [place] [address] WBC corrected for nucl RBC Auto (Bld) [#/Vol] 7.5 E9/L Normal 4.0-11.[address] [facility] Comment on above: Performed By: #### 2 908859, 57140276, 2433304, 1525634, 7284284 ####[facility] [address] [place] [address] Consent for Treatmenton Consent for Treatment [id number] Normal [facility] ED Clinical Summaryon 2022 ED Clinical Summary Normal [facility] ED Note-Physicianon 12-05-19 ED Note-Physician Normal [facility] Comment on above: Result Comment: Elec tronically Signed By: Shantell Rondon, Agatha Olvera\.br\Date and Time Signed: 12/04/22 18:53 EDT ED Patient Education Noteon 12-04-2022 ED Patient Education Note Normal [facility] ED Patient Summaryon 023 ED Patient Summary Normal [facility] Hep Func Panelon 12-04-2022 Bilirubin.indirect [Mass or moles/Vol] UTC Abnormal 0.1-0.9 [facility] Comment on above: Result Comment: Resu lt verified by Discern Rule. Performed result UTC (Unable to Calculate) was sent as an Alpha code due the inability to calculate a valid numeric value. Performed By: #### 2 403856, 25462885, 4983745, 1692824, 5378496 ####[facility] [address] [place] [address] Albumin [Mass/Vol] 4.2 g/dL Normal 3.3-5.0 [facility] Comment on above: Performed By: #### 2 754237, 08524681, 5450872, 9134316, 4385724 ####[facility] [address] [place] [address] Albumin/Globulin (S) [Mass conc ratio] 1.2 Normal 1.1-2.2 [facility] Comment on above: Performed By: #### 2 599174, 63486843, 2711242, 6089633, 7306776 ####[facility] [address] [place] [address] ALP [Catalytic activity/Vol] 71 Int._Unit/L Normal 21-98 [facility] Comment on above: Performed By: #### 2 361193, 44190194, 5942007, 2209926, 8181045 ####[facility] [address] [place] [address] ALT No additional P-5'-P [Catalytic activity/Vol] 17 Int._Unit/L Normal 6-46 [facility] Comment on above: Performed By: #### 2 181083, 84190123, 1972437, 8660917, 7380906 ####[facility] [address] [place] [address] AST [Catalytic activity/Vol] 20 Int._Unit/L Normal 5-43 [facility] Comment on above: Performed By: #### 2 891453, 75745190, 6278435, 9233084, 6303232 ####[facility] [address] [place] [address] Bilirubin [Mass/Vol] 0.5 mg/dL Normal 0.0-1.1 [facility] Comment on above: Performed By: #### 2 847955, 69742766, 9763422, 3259901, 0862835 ####[facility] [address] [place] [address] Globulin (S) [Mass/Vol] 3.5 g/dL Normal 1.4-4.0 [facility] Comment on above: Performed By: #### 2 220527, 67905548, 9415938, 3202386, 1677144 ####[facility] [address] [place] [address] Protein [Mass/Vol] 7.7 g/dL Normal 6.0-7.8 [facility] Comment on above: Performed By: #### 2 229285, 74151970, 8848072, 7396251, 4816203 ####[facility] [address] [place] [address] Bilirubin.direct [Mass/Vol] mg/dL Normal 0.1-0.4 [facility] Comment on above: Performed By: #### 2 095799, 75724956, 2540839, 7719369, 0082380 ####[facility] [address] [place] [address] UA With Cult Reflexon 2022 Bacteria LM Ql (Urine sed) TRACE Normal Trace [facility] Comment on above: Performed By: #### 2 982249, 53638977 ####[facility] [address] [place] [address] Bilirubin Ql (U) Negative Normal Negative [facility] Comment on above: Performed By: #### 2 263256, 13305877 ####[facility] [address] [place] [address] Clarity (U) CLOUDY Abnormal Clear [facility] Comment on above: Performed By: #### 2 017481, 10351944 ####[facility] [address] [place] [address] Color (U) RED Abnormal Yellow [facility] Comment on above: Performed By: #### 2 658247, 99080006 ####[facility] [address] [place] [address] Epithelial cells.squamous LM.HPF (Urine sed) [#/Area] 3-4 Normal 0-2 [facility] Comment on above: Performed By: #### 2 294407, 53573987 ####[facility] [address] [place] [address] Glucose Test strip (U) [Mass/Vol] Negative Normal Negative [facility] Comment on above: Performed By: #### 2 661807, 05863340 ####[address] [place] [address] Hemoglobin Ql (U) 3+ Abnormal Negative [facility] Comment on above: Performed By: #### 2 260810, 50811760 ####[address] [address] Ketones (U) [Mass/Vol] Negative Normal Negative [facility] Comment on above: Performed By: #### 2 337119, 54097395 ####[address] [address] [place].plasma/[place] .RBC (Bld) [Mass ratio] >75 Abnormal 0-3 [facility] Comment on above: Performed By: #### 2 312535, 79731568 ####[place] [address] Nitrite Ql (U) Negative Normal Negative [facility] Comment on above: Performed By: #### 2 088806, 63148310 ####[address] [address] pH (U) 6.0 [pH] Invalid Interpretation Code 5.0-9.0 [facility] Comment on above: Performed By: #### 2 226260, 65554041 ####[address] [address] Protein (U) [Mass/Vol] Negative Normal Negative [facility] Comment on above: Performed By: #### 2 938574, 86533650 ####[address] [address] Specific gravity (U) [Rel density] <=1.005 Invalid Interpretation Code 1.005-1.03 0 [facility] Comment on above: Performed By: #### 2 709484, 40330215 ####[address] [address] Type of Urine collection method Clean Catch Normal [facility] Comment on above: Performed By: #### 2 156427, 62991689 ####[address] [address] Urobilinogen Qn (U) 0.2 {Diaz'U}/dL Normal 0.0-1.0 [facility] Comment on above: Performed By: #### 2 438009, 37013124 ####[facility] [address] [place] [address] WBC Auto Ql (U) 1+ Abnormal Negative [facility] Comment on above: Performed By: #### 2 614398, 63859443 ####[facility] [address] [place] [address] WBC LM.HPF (Urine sed) [#/Area] 0-5 Normal 0-5 [facility] Comment on above: Performed By: #### 2 133084, 03781369 ####[facility] [address] [place] [address] US Renalon 12-04-2022 US Renal Normal [facility] eGFRon 12-04-2022 GFR/1.73 sq M.predicted among non-blacks MDRD (S/P/Bld) [Vol rate/Area] 107 mL/min/1.73 m2 Normal >=59 [facility] Comment on above: Order Comment: Order added by Discern Expert. 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 Kidney failure is indicated at less than 15 mL/min/1.73m2. Performed By: #### 2 086825, 20208901, 6772074, 5126499, 8583317 ####[facility] [address] [place] [address] Complete Blood Count Auto Di ffon 11-28-2022 Basophils (Bld) [#/Vol] 0.1 10*3/uL Normal 0.0-0.2 [facility] Comment on above: Result Comment: PERF ORMED BY:[facility] [place], [place] [phone] MEDICAL DIRECTORNATALIA MIKE M.D. Performed By: #### C BC, CMP ####[place] [address] [place] [address] [facility] Basophils/100 WBC (Bld) 0.9 % Normal . [facility] Comment on above: Performed By: #### C BC, CMP ####[place] [id number] [facility] Eosinophils (Bld) [#/Vol] 0.3 10*3/uL Normal 0.0-0.45 [facility] Comment on above: Performed By: #### C BC, CMP ####[place] [id number] [facility] Eosinophils/100 WBC (Bld) 2.8 % Normal . [facility] Comment on above: Performed By: #### C BC, CMP ####[address] Erythrocyte distribution width (RBC) [Ratio] 12.7 % Normal 11.9-15.3 [facility] Comment on above: Performed By: #### C BC, CMP ####[address] Hematocrit (Bld) [Volume fraction] 41.6 % Normal 34.0-46.4 [facility] Comment on above: Performed By: #### C BC, CMP ####[place] [id number] [facility] Hemoglobin (Bld) [Mass/Vol] 14.5 g/dL Normal 11.8-15.4 [facility] Comment on above: Performed By: #### C BC, CMP ####[place] [id number] [facility] Lymphocytes (Bld) [#/Vol] 3.2 10*3/uL Normal 1.00-4.8 [facility] Comment on above: Performed By: #### C BC, CMP ####[place] [id number] [facility] Lymphocytes/100 WBC (Bld) 31.5 % Normal . [facility] Comment on above: Performed By: #### C BC, CMP ####[address] [place] [address] [place] MCH (RBC) [Entitic mass] 30.1 pg Normal 24.7-34.3 [facility] Comment on above: Performed By: #### C BC, CMP ####[address] MCV (RBC) [Entitic vol] 86.1 fL Normal 80-100 [facility] Comment on above: Performed By: #### C BC, CMP ####[address] Mean Corpuscular HGB Conc 35.0 g/dL Normal 32.0-35.0 [facility] Comment on above: Performed By: #### C BC, CMP ####[address] Monocytes (Bld) [#/Vol] 0.7 10*3/uL Normal 0.0-0.8 [facility] Comment on above: Performed By: #### C BC, CMP ####[address] Monocytes/100 WBC (Bld) 18.21 % Normal 0.00-20.00 [facility] Comment on above: Performed By: #### C BC, CMP ####[address] Monocytes/100 WBC (Bld) 7.2 % Normal . [facility] Comment on above: Performed By: #### C BC, CMP ####[address] Neutrophils (Bld) [#/Vol] 5.9 10*3/uL Normal 1.8-7.7 [facility] Comment on above: Performed By: #### C BC, CMP ####[address] Neutrophils/100 WBC (Bld) 57.6 % Normal . [facility] Comment on above: Performed By: #### C BC, CMP ####[place] [address] [facility] NRBC% 0.1 /100{WBC} Normal 0-0.5 [facility] Comment on above: Performed By: #### C SHANIA, CMP ####[place] [id number] [facility] Platelet mean volume (Bld) [Entitic vol] 7.3 fL Normal 6.3-10.7 [facility] Comment on above: Performed By: #### C BC, CMP ####[place] [id number] [facility] Platelets (Bld) [#/Vol] 235 10*3/uL Normal 150-450 [facility] Comment on above: Performed By: #### C SHANIA, CMP ####[place] [id number] [facility] RBC (Bld) [#/Vol] 4.83 10*6/uL Normal 3.60-5.00 [facility] Comment on above: Performed By: #### C SHANAI, CMP ####[place] [id number] [facility] WBC (Bld) [#/Vol] 10.2 10*3/uL Normal 3.8-11.6 [facility] Comment on above: Performed By: #### C SHANIA, CMP ####[place] [id number] [facility] Comprehensive Metabolic Pane loco 11-28-2022 Albumin [Mass/Vol] 4.6 g/dL Normal 3.5-5.7 [facility] Comment on above: Performed By: #### C BC, CMP ####[place] [id number] [facility] Albumin/Globulin [Mass ratio] 1.2 {ratio} Normal [facility] Comment on above: Performed By: #### C BC, CMP ####[place] [id number] [facility] ALP [Catalytic activity/Vol] 73 U/L Normal 34-104 [facility] Comment on above: Performed By: #### C BC, CMP ####[facility] [place] [address] [facility] ALT [Catalytic activity/Vol] 12 U/L Normal 7-52 [facility] Comment on above: Performed By: #### C BC, CMP ####[facility] [place] [address] [facility] Anion gap [Moles/Vol] 12.9 mmol/L Normal 6.0-15.[address] [facility] Comment on above: Performed By: #### C BC, CMP ####[facility] [place] [address] [facility] AST [Catalytic activity/Vol] 13 U/L Normal 13-39 [facility] Comment on above: Performed By: #### C BC, CMP ####[place] [address] [place] [address] [facility] Bilirubin [Mass/Vol] 0.3 mg/dL Normal 0.3-1.0 [facility] Comment on above: Performed By: #### C BC, CMP ####[place] [address] [place] [address] [facility] Calcium [Mass/Vol] 9.6 mg/dL Normal 8.6-10.3 [place] [facility] Comment on above: Performed By: #### C BC, CMP ####[facility] [place] [address] [facility] Chloride [Moles/Vol] 102 mmol/L Normal 98-107 [facility] Comment on above: Performed By: #### C BC, CMP ####[facility] [place] [address] [facility] CO2 [Moles/Vol] 28.6 mmol/L Normal 21.0-31.0 [facility] Comment on above: Performed By: #### C BC, CMP ####[facility] [place] [address] [facility] Creatinine [Mass/Vol] 0.69 mg/dL Normal 0.60-1.20 [facility] Comment on above: Performed By: #### C BC, CMP ####[facility] [address] [address] [facility] Creatinine Clr Calc Pharmacy 136.14 [facility] Comment on above: Result Comment: PERF ORMED BY:[address] [place], [place] [id number] MEDICAL DIRECTORNATALIA MIKE M.D. Performed By: #### C BC, CMP ####[address] [address] [facility] GFR/1.73 sq M.predicted MDRD (S/P/Bld) [Vol rate/Area] mL/min/{1.73_m2} [facility] Comment on above: Performed By: #### C BC, CMP ####[place] [id number] [facility] Globulin (S) [Mass/Vol] 3.7 g/dL [facility] Comment on above: Performed By: #### C BC, CMP ####[place] [id number] [facility] Glucose [Mass/Vol] 100 mg/dL Normal 70-100 [facility] Comment on above: Result Comment: [facility] Glucose Reference Range is dependent on time and content of last meal. Glucose of more than 200 mg/dL in a nonstressed, ambulatory subject supports the diagnosis of Diabetes Mellitus. ADA recommended reference range Performed By: #### C BC, CMP ####[address] [address] [facility] Potassium [Moles/Vol] 3.5 mmol/L Normal 3.5-5.1 [facility] Comment on above: Performed By: #### C BC, CMP ####[address] [address] [facility] Protein [Mass/Vol] 8.3 g/dL Normal 6.4-8.9 [facility] Comment on above: Performed By: #### C BC, CMP ####[address] [address] [facility] Sodium [Moles/Vol] 140 mmol/L Normal 136-145 [facility] Comment on above: Performed By: #### C SHANIA, CMP ####[facility] [id number] [place] [address] [facility] Urea nitrogen [Mass/Vol] 19 mg/dL Normal 7-25 [facility] Comment on above: Performed By: #### C BC, CMP ####[facility] [id number] [place] [address] [facility] XR KUBon 11-28-2022 XR KUB Normal [facility] Alanine aminotransferase [En zymatic activity/volume] in Serum or PlasmaOrdered By: Joseluis Vega on 11-27-2022 ALT [Catalytic activity/Vol] 12 U/L 7-52 [facility] Albumin [Mass/volume] in Ser um or Plasma by Bromocresol green (BCG) dye binding methoOrdered By: Joseluis Vega on 11-27-2022 Albumin BCG dye [Mass/Vol] 4.6 g/dL 3.5-5.7 [facility] Alkaline phosphatase [Enzyma tic activity/volume] in Serum or PlasmaOrdered By: Joseluis Vega on 11-27-2022 ALP [Catalytic activity/Vol] 73 U/L 34-104 [facility] Aspartate aminotransferase [ Enzymatic activity/volume] in Serum or PlasmaOrdered By: Joseluis Vega on 11-27-2022 AST [Catalytic activity/Vol] 13 U/L 13-39 [facility] Automated erythrocytes count in urine sediment (number/area)Ordered By: Joseluis Vega on 11-27-2022 RBC Auto (Urine sed) [#/Area] Innumerable [HPF] 0-4 [facility] Automated leukocytes count i n urine sediment (number/area)Ordered By: Joseluis Vega on 11-27-2022 WBC Auto (Urine sed) [#/Area] 10-19 [HPF] 0-4 [facility] Basophils Auto (Bld) [#/Vol] Ordered By: Joseluis Vega on 11-27-2022 Basophils (Bld) [#/Vol] 0.1 10*3/uL 0.0-0.2 [facility] Basophils/100 WBC Auto (Bld) Ordered By: Joseluis Vega on 11-27-2022 Basophils/100 WBC (Bld) 0.9 % . [facility] Bilirubin Test strip Ql (U)O rdered By: Joseluis Vega on 11-27-2022 Bilirubin Ql (U) Negative Negative [facility] Bilirubin.total [Mass/volume ] in Serum or PlasmaOrdered By: Joseluis Vega on 11-27-2022 Bilirubin [Mass/Vol] 0.3 mg/dL 0.3-1.0 [facility] Calcium [Mass/volume] in Ser um or PlasmaOrdered By: Joseluis Vega on 11-27-2022 Calcium [Mass/Vol] 9.6 mg/dL 8.6-10.3 [facility] Carbon dioxide, total [Moles /volume] in Serum or PlasmaOrdered By: Joseluis Vega on 11-27-2022 CO2 [Moles/Vol] 28.6 mmol/L 21.0-31.0 [facility] Chloride [Moles/volume] in S jaron or PlasmaOrdered By: Joseluis Vega on 11-27-2022 Chloride [Moles/Vol] 102 mmol/L 98-107 [facility] Color Auto (U)Ordered By: Monika Vega on 11-27-2022 Color (U) [place] Yellow [facility] Creatinine [Mass/volume] in Serum or PlasmaOrdered By: Joseluis Vega on 11-27-2022 Creatinine [Mass/Vol] 0.69 mg/dL 0.60-1.20 [facility] Dipstick and Microscopicon 0 11-27-2022 Appearance (U) Cloudy Critically abnormal Clear [facility] Comment on above: Order Comment: Name Collection Type:: Clean-Voided Midstream Performed By: #### A DDONUAPLUS, CUU, UHCG ####[facility] [id number] [place] [id number] [facility] Bacteria,Urine None Seen Normal None Seen [facility] Comment on above: Order Comment: Name Collection Type:: Clean-Voided Midstream Performed By: #### A DDONUAPLUS, CUU, UHCG ####[facility] [id number] Bilirubin,Urine Negative Normal Negative [facility] Comment on above: Order Comment: Name Collection Type:: Clean-Voided Midstream Performed By: #### A DDONUAPLUS, CUU, UHCG ####[address] Color (U) [place] Critically abnormal Yellow [facility] Comment on above: Order Comment: Name Collection Type:: Clean-Voided Midstream Performed By: #### A DDONUAPLUS, CUU, UHCG ####[place] [id number] [facility] Glucose Ql (U) >=1000 High Normal [facility] Comment on above: Order Comment: Name Collection Type:: Clean-Voided Midstream Performed By: #### A DDONUAPLUS, CUU, UHCG ####[place] [id number] [facility] Hyaline Casts,Urine 0-8 Normal 0-8 [facility] Comment on above: Order Comment: Name Collection Type:: Clean-Voided Midstream Performed By: #### A DDONUAPLUS, CUU, UHCG ####[address] Ketones Ql (U) Trace High Negative [facility] Comment on above: Order Comment: Name Collection Type:: Clean-Voided Midstream Performed By: #### A DDONUAPLUS, CUU, UHCG ####[place] [id number] [facility] Leukocyte esterase Test strip Ql (U) 2+ High Negative [facility] Comment on above: Order Comment: Name Collection Type:: Clean-Voided Midstream Performed By: #### A DDONUAPLUS, CUU, UHCG ####[place] [id number] [place] Nitrite,Urine Negative Normal Negative [facility] Comment on above: Order Comment: Name Collection Type:: Clean-Voided Midstream Performed By: #### A DDONUAPLUS, CUU, UHCG ####[address] [address] [facility] Occult Blood,Urine 3+ High Negative [facility] Comment on above: Order Comment: Name Collection Type:: Clean-Voided Midstream Performed By: #### A DDONUAPLUS, CUU, UHCG ####[address] [address] [facility] pH (U) 6.0 [pH] Normal 5.0-9.0 [facility] Comment on above: Order Comment: Name Collection Type:: Clean-Voided Midstream Performed By: #### A DDONUAPLUS, CUU, UHCG ####[address] [address] [facility] Protein,Urine Trace High Negative [facility] Comment on above: Order Comment: Name Collection Type:: Clean-Voided Midstream Performed By: #### A DDONUAPLUS, CUU, UHCG ####[place] [id number] [facility] RBC,Urine Innumerable High 0-4 [facility] Comment on above: Order Comment: Name Collection Type:: Clean-Voided Midstream Performed By: #### A DDONUAPLUS, CUU, UHCG ####[place] [id number] [facility] Specificy Dent,Urine 1.027 Normal 1.001-1.03 0 [facility] Comment on above: Order Comment: Name Collection Type:: Clean-Voided Midstream Performed By: #### A DDONUAPLUS, CUU, UHCG ####[address] [address] [facility] Squamous Epithelial Cell,Urine 3-4 High 0-2 [facility] Comment on above: Order Comment: Name Collection Type:: Clean-Voided Midstream Performed By: #### A DDONUAPLUS, CUU, UHCG ####[address] [address] [facility] Urobilinogen,Urine Normal Normal Normal [facility] Comment on above: Order Comment: Name Collection Type:: Clean-Voided Midstream Performed By: #### A DDONUAPLUS, CUU, CG ####[facility] [id number] WBC,Urine 10-19 High 0-4 [facility] Comment on above: Order Comment: Name Collection Type:: Clean-Voided Midstream Performed By: #### A DDBOLIVARUAPLUS, CUU, CG ####[facility] [id number] Eosinophils Auto (Bld) [#/Vo l]Ordered By: Joseluis Vega on 11-27-2022 Eosinophils (Bld) [#/Vol] 0.3 10*3/uL 0.0-0.45 [facility] Eosinophils/100 WBC Auto (Bl d)Ordered By: Joseluis eVga on 11-27-2022 Eosinophils/100 WBC (Bld) 2.8 % . [facility] Erythrocyte distribution wid th Auto (RBC) [Ratio]Ordered By: Joseluis Vega on 11-27-2022 Erythrocyte distribution width (RBC) [Ratio] 12.7 % 11.9-15.3 [facility] Globulin Calc (S) [Mass/Vol] Ordered By: Joseluis Vega on 11-27-2022 Globulin (S) [Mass/Vol] 3.7 g/dL [facility] Glucose [Mass/volume] in Ser um or PlasmaOrdered By: Joseluis Vega on 11-27-2022 Glucose [Mass/Vol] 100 mg/dL 70-100 [facility] Comment on above: ADA recommended refe rence rangeRandom Glucose Reference Range is dependent on time and content of last meal. Glucose of more than 200 mg/dL in a nonstressed, ambulatory subject supports the diagnosis of Diabetes Mellitus. HCG ( test) IA.rapi d Ql (U)Ordered By: Joseluis Vega on 11-27-2022 HCG ( test) Ql (U) Negative [facility] HCG,Urineon 11-27-2022 Beta HCG ( test) Ql (U) Negative Normal [facility] Comment on above: Order Comment: Name Collection Type:: Clean-Voided Midstream Result Comment: PERF ORMED BY:[address], [place] [id number] MEDICAL DIRECTORNATALIA MIKE M.D. Performed By: #### A ANGEL BERNARD [facility] ####[facility] [place] [address] [facility] Hematocrit Auto (Bld) [Volum e fraction]Ordered By: Joseluis Vega on 11-27-2022 Hematocrit (Bld) [Volume fraction] 41.6 % 34.0-46.4 [facility] Hemoglobin [Mass/volume] in BloodOrdered By: Joseluis Vega on 11-27-2022 Hemoglobin (Bld) [Mass/Vol] 14.5 g/dL 11.8-15.4 [facility] Ketones Auto test strip (U) [Mass/Vol]Ordered By: Joseluis Vega on 11-27-2022 Ketones (U) [Mass/Vol] Trace Negative [facility] Laboratory - UrinalysisOrder ed By: Joseluis Vega on 11-27-2022 Hyaline casts LM Ql (Urine sed) 0-8 [LPF] 0-8 [facility] Leukocytes [#/volume] correc suzanne for nucleated erythrocytes in Blood by Automated counOrdered By: Joseluis Vega on 11-27-2022 WBC corrected for nucl RBC Auto (Bld) [#/Vol] 10.2 10*3/uL 3.8-11.6 [facility] Lymphocytes Auto (Bld) [#/Vo l]Ordered By: Joseluis Vega on 11-27-2022 Lymphocytes (Bld) [#/Vol] 3.2 10*3/uL 1.00-4.8 [facility] Lymphocytes/100 WBC Auto (Bl d)Ordered By: Joseluis Vega on 11-27-2022 Lymphocytes/100 WBC (Bld) 31.5 % . [facility] MCH Auto (RBC) [Entitic mass ]Ordered By: Joseluis Vega on 11-27-2022 MCH (RBC) [Entitic mass] 30.1 pg 24.7-34.3 [facility] MCHC Auto (RBC) [Mass/Vol]Or dered By: Joseluis Vega on 11-27-2022 MCHC (RBC) [Mass/Vol] 35.0 g/dL 32.0-35.0 [facility] MCV Auto (RBC) [Entitic vol] Ordered By: Joseluis Vega on 11-27-2022 MCV (RBC) [Entitic vol] 86.1 fL 80-100 [facility] Monocyte distribution width [Entitic volume] in Blood by AutomatedOrdered By: Joseluis Vega on 11-27-2022 Monocyte distribution width Auto (Bld) [Entitic vol] 18.21 % 0.00-20.00 [facility] Monocytes Auto (Bld) [#/Vol] Ordered By: oJseluis Vega on 11-27-2022 Monocytes (Bld) [#/Vol] 0.7 10*3/uL 0.0-0.8 [facility] Monocytes/100 WBC Auto (Bld) Ordered By: Joseluis Vega on 11-27-2022 Monocytes/100 WBC (Bld) 7.2 % . [facility] Neutrophils Auto (Bld) [#/Vo l]Ordered By: Joseluis Vega on 11-27-2022 Neutrophils (Bld) [#/Vol] 5.9 10*3/uL 1.8-7.7 [facility] Neutrophils/100 WBC Auto (Bl d)Ordered By: Joseluis Vega on 11-27-2022 Neutrophils/100 WBC (Bld) 57.6 % . [facility] Nitrite Test strip Ql (U)Ord ered By: Joseluis Vega on 11-27-2022 Nitrite Ql (U) Negative Negative [facility] No Panel InformationOrdered By: Joseluis Vega on 11-27-2022 Estimated GFR (CKD-EPI) > 60.0 mL/Min [facility] Pharmacy Creatinine Clearance (Chem 136.14 [facility] > 60.0 mL/Min [facility] 136.14 [facility] 0-8 [LPF] 0-8 [facility] Nucleated erythrocytes [Pres ence] in Blood by Automated countOrdered By: Joseluis Vega on 11-27-2022 Nucleated RBC Auto Ql (Bld) 0.1 /100{WBC} 0-0.5 [facility] Platelet mean volume Auto (B ld) [Entitic vol]Ordered By: Joseluis Vega on 11-27-2022 Platelet mean volume (Bld) [Entitic vol] 7.3 fL 6.3-10.7 [facility] Platelets Auto (Bld) [#/Vol] Ordered By: Joseluis Vega on 11-27-2022 Platelets (Bld) [#/Vol] 235 10*3/uL 150-450 [facility] Potassium [Moles/volume] in Serum or PlasmaOrdered By: Joseluis Vega on 11-27-2022 Potassium [Moles/Vol] 3.5 mmol/L 3.5-5.1 [facility] Protein Auto test strip (U) [Mass/Vol]Ordered By: Joseluis Vega on 11-27-2022 Protein (U) [Mass/Vol] Trace mg/dL Negative [facility] Protein [Mass/volume] in Ser um or PlasmaOrdered By: Joseluis Vega on 11-27-2022 Protein [Mass/Vol] 8.3 g/dL 6.4-8.9 [facility] RBC Auto (Bld) [#/Vol]Ordere d By: Joseluis Vega on 11-27-2022 RBC (Bld) [#/Vol] 4.83 10*6/uL 3.60-5.00 [facility] Serum or plasma albumin/glob ulin mass ratioOrdered By: Joseluis Vega on 11-27-2022 Albumin/Globulin [Mass ratio] 1.2 {ratio} [facility] Serum or plasma anion gap de terminationOrdered By: Joseluis Vega on 11-27-2022 Anion gap [Moles/Vol] 12.9 mmol/L 6.0-15.[address] [facility] Sodium [Moles/volume] in Ser um or PlasmaOrdered By: Joseluis Vega on 11-27-2022 Sodium [Moles/Vol] 140 mmol/L 136-145 [facility] Specific gravity Auto test s trip (U) [Rel density]Ordered By: Joseluis Vega on 11-27-2022 Specific gravity (U) [Rel density] 1.027 1.001-1.03 0 [facility] Squamous epithelial cells de tection in urine sediment by light microscopyOrdered By: Joseluis Vega on 11-27-2022 Epithelial cells.squamous LM Ql (Urine sed) 3-4 [HPF] 0-2 [facility] Urea nitrogen [Mass/volume] in Serum or PlasmaOrdered By: Joseluis Vega on 11-27-2022 Urea nitrogen [Mass/Vol] 19 mg/dL 7-25 [facility] Urine Cultureon 11-27-2022 Bacteria identified Cx Nom (U) Normal [facility] Comment on above: Performed By: #### A DDONUAKATHLEEN, CUU, [facility] ####[facility] [id number] [place] [id number] [facility] Urine bacteria detection by automated methodOrdered By: Joseluis Vega on 11-27-2022 Bacteria Auto Ql (U) None seen None Seen [facility] Urine clarity by refractomet ry automatedOrdered By: Joseluis Vega on 11-27-2022 Clarity Refractometry automated (U) Cloudy Clear [facility] Urine culture routineOrdered By: Joseluis Vega on 11-27-2022 Bacteria identified Cx Nom (U) 2 Days [facility] Urine glucose measurement by automated test strip (mass/volume)Ordered By: Joseluis Vega on 11-27-2022 Glucose Auto test strip (U) [Mass/Vol] >=1000 mg/dL Normal [facility] Urine hemoglobin detection b y automated test stripOrdered By: Joseluis Vega on 11-27-2022 Hemoglobin Auto test strip Ql (U) 3+ Negative [facility] Urine leukocyte esterase det ection by automated test stripOrdered By: Joseluis Vega on 11-27-2022 Leukocyte esterase Auto test strip Ql (U) 2+ Negative [facility] Urobilinogen Auto test strip (U) [Mass/Vol]Ordered By: Joseluis Vega on 11-27-2022 Urobilinogen (U) [Mass/Vol] Normal mg/dL Normal [facility] WBC Auto (Bld) [#/Vol]Ordere d By: Joseluis Vega on 11-27-2022 WBC (Bld) [#/Vol] 10.2 10*3/uL 3.8-11.6 [facility] pH Auto test strip (U)Ordere d By: Joseluis Vega on 11-27-2022 pH (U) 6.0 [pH] 5.0-9.0 [facility] Basic Metabolic Panelon 05-2 Anion gap [Moles/Vol] 14.3 mmol/L Normal 6.0-15.[address] [facility] Comment on above: Performed By: #### L IPASE, HEPATIC, CBC, BMP ####[facility] [id number] [place] [address] [facility] Calcium [Mass/Vol] 9.2 mg/dL Normal 8.6-10.3 [facility] Comment on above: Performed By: #### L IPASE, HEPATIC, CBC, BMP ####[address] [address] [place] Chloride [Moles/Vol] 102 mmol/L Normal 98-107 [facility] Comment on above: Performed By: #### L IPASE, HEPATIC, CBC, BMP ####[address] [address] [place] CO2 [Moles/Vol] 26.6 mmol/L Normal 21.0-31.0 [facility] Comment on above: Performed By: #### L IPASE, HEPATIC, CBC, BMP ####[address] [address] [place] Creatinine [Mass/Vol] 0.64 mg/dL Normal 0.60-1.20 [facility] Comment on above: Performed By: #### L IPASE, HEPATIC, CBC, BMP ####[address] [address] [place] Creatinine Clr Calc Pharmacy 147.22 Normal [facility] Comment on above: Performed By: #### L IPASE, HEPATIC, CBC, BMP ####[address] [address] [place] GFR/1.73 sq M.predicted MDRD (S/P/Bld) [Vol rate/Area] mL/min/{1.73_m2} Normal [facility] Comment on above: Performed By: #### L IPASE, HEPATIC, CBC, BMP ####[place] [address] [place] [address] [facility] Glucose [Mass/Vol] 259 mg/dL High 70-100 [facility] Comment on above: Result Comment: [place] Glucose Reference Range is dependent on time and content of last meal. Glucose of more than 200 mg/dL in a nonstressed, ambulatory subject supports the diagnosis of Diabetes Mellitus. ADA recommended reference range Performed By: #### L IPASE, HEPATIC, CBC, BMP ####[place] [address] [place] [address] [facility] Potassium [Moles/Vol] 3.9 mmol/L Normal 3.5-5.1 [facility] Comment on above: Performed By: #### L IPASE, HEPATIC, CBC, BMP ####[place] [id number] [facility] Sodium [Moles/Vol] 139 mmol/L Normal 136-145 [facility] Comment on above: Performed By: #### L IPASE, HEPATIC, CBC, BMP ####[place] [id number] [facility] Urea nitrogen [Mass/Vol] 15 mg/dL Normal 7-25 [facility] Comment on above: Performed By: #### L IPASE, HEPATIC, CBC, BMP ####[place] [id number] [facility] Complete Blood Count Auto Di ffon 11-23-2022 Basophils (Bld) [#/Vol] 0.1 10*3/uL Normal 0.0-0.2 [facility] Comment on above: Result Comment: PERF ORMED BY:[address] [place], [place] [id number] MEDICAL DIRECTORNATALIA MIKE M.D. Performed By: #### L IPASE, HEPATIC, CBC, BMP ####[place] [id number] [facility] Basophils/100 WBC (Bld) 0.8 % Normal . [facility] Comment on above: Performed By: #### L IPASE, HEPATIC, CBC, BMP ####[address] Eosinophils (Bld) [#/Vol] 0.2 10*3/uL Normal 0.0-0.45 [facility] Comment on above: Performed By: #### L IPASE, HEPATIC, CBC, BMP ####[address] Eosinophils/100 WBC (Bld) 1.9 % Normal . [facility] Comment on above: Performed By: #### L IPASE, HEPATIC, CBC, BMP ####[address] Erythrocyte distribution width (RBC) [Ratio] 12.7 % Normal 11.9-15.3 [facility] Comment on above: Performed By: #### L IPASE, HEPATIC, CBC, BMP ####[address] Hematocrit (Bld) [Volume fraction] 39.5 % Normal 34.0-46.4 [facility] Comment on above: Performed By: #### L IPASE, HEPATIC, CBC, BMP ####[address] Hemoglobin (Bld) [Mass/Vol] 13.9 g/dL Normal 11.8-15.4 [facility] Comment on above: Performed By: #### L IPASE, HEPATIC, CBC, BMP ####[address] Lymphocytes (Bld) [#/Vol] 2.1 10*3/uL Normal 1.00-4.8 [facility] Comment on above: Performed By: #### L IPASE, HEPATIC, CBC, BMP ####[address] Lymphocytes/100 WBC (Bld) 20.5 % Normal . [facility] Comment on above: Performed By: #### L IPASE, HEPATIC, CBC, BMP ####[address] MCH (RBC) [Entitic mass] 30.4 pg Normal 24.7-34.3 [facility] Comment on above: Performed By: #### L IPASE, HEPATIC, CBC, BMP ####[address] MCV (RBC) [Entitic vol] 86.6 fL Normal 80-100 [facility] Comment on above: Performed By: #### L IPASE, HEPATIC, CBC, BMP ####[address] Mean Corpuscular HGB Conc 35.1 g/dL High 32.0-35.0 [facility] Comment on above: Performed By: #### L IPASE, HEPATIC, CBC, BMP ####[address] Monocytes (Bld) [#/Vol] 0.6 10*3/uL Normal 0.0-0.8 [facility] Comment on above: Performed By: #### L IPASE, HEPATIC, CBC, BMP ####[address] Monocytes/100 WBC (Bld) 19.91 % Normal 0.00-20.00 [facility] Comment on above: Performed By: #### L IPASE, HEPATIC, CBC, BMP ####[address] Monocytes/100 WBC (Bld) 6.1 % Normal . [facility] Comment on above: Performed By: #### L IPASE, HEPATIC, CBC, BMP ####[address] Neutrophils (Bld) [#/Vol] 7.4 10*3/uL Normal 1.8-7.7 [facility] Comment on above: Performed By: #### L IPASE, HEPATIC, CBC, BMP ####[address] Neutrophils/100 WBC (Bld) 70.7 % Normal . [facility] Comment on above: Performed By: #### L IPASE, HEPATIC, CBC, BMP ####[address] NRBC% 0.1 /100{WBC} Normal 0-0.5 [facility] Comment on above: Performed By: #### L IPASE, HEPATIC, CBC, BMP ####[address] Platelet mean volume (Bld) [Entitic vol] 7.4 fL Normal 6.3-10.7 [facility] Comment on above: Performed By: #### L IPASE, HEPATIC, CBC, BMP ####[address] Platelets (Bld) [#/Vol] 224 10*3/uL Normal 150-450 [facility] Comment on above: Performed By: #### L IPASE, HEPATIC, CBC, BMP ####[address] RBC (Bld) [#/Vol] 4.56 10*6/uL Normal 3.60-5.00 [facility] Comment on above: Performed By: #### L IPASE, HEPATIC, CBC, BMP ####[address] WBC (Bld) [#/Vol] 10.4 10*3/uL Normal 3.8-11.6 [facility] Comment on above: Performed By: #### L IPASE, HEPATIC, CBC, BMP ####[place] [id number] [facility] Hepatic Panelon 11-23-2022 Albumin [Mass/Vol] 4.3 g/dL Normal 3.5-5.7 [facility] Comment on above: Performed By: #### L IPASE, HEPATIC, CBC, BMP ####[address] Albumin/Globulin [Mass ratio] 1.3 {ratio} Normal [facility] Comment on above: Performed By: #### L IPASE, HEPATIC, CBC, BMP ####[place] [address] ALP [Catalytic activity/Vol] 73 U/L Normal 34-104 [facility] Comment on above: Performed By: #### L IPASE, HEPATIC, CBC, BMP ####[address] ALT [Catalytic activity/Vol] 13 U/L Normal 7-52 [facility] Comment on above: Performed By: #### L IPASE, HEPATIC, CBC, BMP ####[address] AST [Catalytic activity/Vol] 14 U/L Normal 13-39 [facility] Comment on above: Performed By: #### L IPASE, HEPATIC, CBC, BMP ####[address] Bilirubin [Mass/Vol] 0.4 mg/dL Normal 0.3-1.0 [facility] Comment on above: Performed By: #### L IPASE, HEPATIC, CBC, BMP ####[address] Bilirubin,Indirect 0.4 mg/dL Normal [facility] Comment on above: Performed By: #### L IPASE, HEPATIC, CBC, BMP ####[address] Bilirubin.indirect [Mass/Vol] 0.00 mg/dL Low 0.03-0.18 [facility] Comment on above: Result Comment: If t he DBIL is less than 0.1, IBIL is not able to be calculated. Performed By: #### L IPASE, HEPATIC, CBC, BMP ####[address] Globulin (S) [Mass/Vol] 3.2 g/dL Normal [facility] Comment on above: Performed By: #### L IPASE, HEPATIC, CBC, BMP ####[facility] [address] [place] [address] [facility] Protein [Mass/Vol] 7.5 g/dL Normal 6.4-8.9 [facility] Comment on above: Performed By: #### L IPASE, HEPATIC, CBC, BMP ####[facility] [place] [address] [facility] Lipaseon 11-23-2022 Lipase [Catalytic activity/Vol] 36.0 U/L Normal 11.0-82.0 [facility] Comment on above: Result Comment: PERF ORMED BY:[address] [place], [place] [phone] MEDICAL DIRECTORNATALIA MIKE M.D. Performed By: #### L IPASE, HEPATIC, CBC, BMP ####[facility] [place] [address] [facility] US renal BIon 11-23-2022 US renal BI Normal [facility] Alanine aminotransferase [En zymatic activity/volume] in Serum or PlasmaOrdered By: Joseluis Vega on 11-22-2022 ALT [Catalytic activity/Vol] 13 U/L 7-52 [facility] Albumin [Mass/volume] in Ser um or Plasma by Bromocresol green (BCG) dye binding methoOrdered By: Joseluis Vega on 11-22-2022 Albumin BCG dye [Mass/Vol] 4.3 g/dL 3.5-5.7 [facility] Alkaline phosphatase [Enzyma tic activity/volume] in Serum or PlasmaOrdered By: Joseluis Vega on 11-22-2022 ALP [Catalytic activity/Vol] 73 U/L 34-104 [facility] Aspartate aminotransferase [ Enzymatic activity/volume] in Serum or PlasmaOrdered By: Joseluis Vega on 11-22-2022 AST [Catalytic activity/Vol] 14 U/L 13-39 [facility] Automated erythrocytes count in urine sediment (number/area)Ordered By: Joseluis Vega on 11-22-2022 RBC Auto (Urine sed) [#/Area] Innumerable [HPF] 0-4 [facility] Automated leukocytes count i n urine sediment (number/area)Ordered By: Joseluis Vega on 11-22-2022 WBC Auto (Urine sed) [#/Area] 10-19 [HPF] 0-4 [facility] Basophils Auto (Bld) [#/Vol] Ordered By: Joseluis Vega on 11-22-2022 Basophils (Bld) [#/Vol] 0.1 10*3/uL 0.0-0.2 [facility] Basophils/100 WBC Auto (Bld) Ordered By: Joseluis Vega on 11-22-2022 Basophils/100 WBC (Bld) 0.8 % . [facility] Bilirubin Test strip Ql (U)O rdered By: Joseluis Vega on 11-22-2022 Bilirubin Ql (U) Negative Negative [facility] Bilirubin.direct [Mass/volum e] in Serum or PlasmaOrdered By: Joseluis Vega on 11-22-2022 Bilirubin.direct [Mass/Vol] 0.00 mg/dL 0.03-0.18 [facility] Comment on above: If the DBIL is less than 0.1, IBIL is not able to becalculated. Bilirubin.total [Mass/volume ] in Serum or PlasmaOrdered By: Joseluis Vega on 11-22-2022 Bilirubin [Mass/Vol] 0.4 mg/dL 0.3-1.0 [facility] Calcium [Mass/volume] in Ser um or PlasmaOrdered By: Joseluis Vega on 11-22-2022 Calcium [Mass/Vol] 9.2 mg/dL 8.6-10.3 [facility] Carbon dioxide, total [Moles /volume] in Serum or PlasmaOrdered By: Joseluis Vega on 11-22-2022 CO2 [Moles/Vol] 26.6 mmol/L 21.0-31.0 [facility] Chloride [Moles/volume] in S jaron or PlasmaOrdered By: Joseluis Vega on 11-22-2022 Chloride [Moles/Vol] 102 mmol/L 98-107 [facility] Color Auto (U)Ordered By: Monika Vega on 11-22-2022 Color (U) Yellow Yellow [facility] Creatinine [Mass/volume] in Serum or PlasmaOrdered By: Joseluis Vega on 11-22-2022 Creatinine [Mass/Vol] 0.64 mg/dL 0.60-1.20 [facility] Dipstick and Microscopicon 0 11-22-2022 Appearance (U) Clear Normal Clear [facility] Comment on above: Order Comment: Name Collection Type:: Clean-Voided Midstream Performed By: #### C UU, UHCG, ADDONUAPLUS ####[place] [id number] [facility] Bacteria,Urine None Seen Normal None Seen [facility] Comment on above: Order Comment: Name Collection Type:: Clean-Voided Midstream Performed By: #### C UU, UHCG, ADDONUAPLUS ####[address] [address] [facility] Bilirubin,Urine Negative Normal Negative [facility] Comment on above: Order Comment: Name Collection Type:: Clean-Voided Midstream Performed By: #### C UU, UHCG, ADDONUAPLUS ####[address] [address] [facility] Color (U) Yellow Normal Yellow [facility] Comment on above: Order Comment: Name Collection Type:: Clean-Voided Midstream Performed By: #### C UU, UHCG, ADDONUAPLUS ####[address] [address] [facility] Glucose Ql (U) Normal Normal Normal [facility] Comment on above: Order Comment: Name Collection Type:: Clean-Voided Midstream Performed By: #### C UU, UHCG, ADDONUAPLUS ####[address] [address] [facility] Hyaline Casts,Urine None Seen Normal 0-8 [facility] Comment on above: Order Comment: Name Collection Type:: Clean-Voided Midstream Performed By: #### C UU, UHCG, ADDONUAPLUS ####[address] [address] [facility] Ketones Ql (U) Negative Normal Negative [facility] Comment on above: Order Comment: Name Collection Type:: Clean-Voided Midstream Performed By: #### C UU, UHCG, ADDONUAPLUS ####[address] Leukocyte esterase Test strip Ql (U) 2+ High Negative [facility] Comment on above: Order Comment: Name Collection Type:: Clean-Voided Midstream Performed By: #### C UU, UHCG, ADDONUAPLUS ####[address] Nitrite,Urine Negative Normal Negative [facility] Comment on above: Order Comment: Name Collection Type:: Clean-Voided Midstream Performed By: #### C UU, UHCG, ADDONUAPLUS ####[address] Occult Blood,Urine 3+ High Negative [facility] Comment on above: Order Comment: Name Collection Type:: Clean-Voided Midstream Performed By: #### C UU, UHCG, ADDONUAPLUS ####[address] pH (U) 6.0 [pH] Normal 5.0-9.0 [facility] Comment on above: Order Comment: Name Collection Type:: Clean-Voided Midstream Performed By: #### C UU, UHCG, ADDONUAPLUS ####[address] Protein,Urine Trace High Negative [facility] Comment on above: Order Comment: Name Collection Type:: Clean-Voided Midstream Performed By: #### C UU, UHCG, ADDONUAPLUS ####[address] RBC,Urine Innumerable High 0-4 [facility] Comment on above: Order Comment: Name Collection Type:: Clean-Voided Midstream Performed By: #### C UU, UHCG, ADDONUAPLUS ####[address] Specificy Dent,Urine 1.012 Normal 1.001-1.03 0 [facility] Comment on above: Order Comment: Name Collection Type:: Clean-Voided Midstream Performed By: #### C UU, UHCG, ADDONUAPLUS ####[place] [address] Squamous Epithelial Cell,Urine 1-2 Normal 0-2 [facility] Comment on above: Order Comment: Name Collection Type:: Clean-Voided Midstream Performed By: #### C UU, UHCG, ADDONUAPLUS ####[place] [address] Urobilinogen,Urine Normal Normal Normal [facility] Comment on above: Order Comment: Name Collection Type:: Clean-Voided Midstream Performed By: #### C UU, UHCG, ADDONUAPLUS ####[place] [address] WBC,Urine 10-19 High 0-4 [facility] Comment on above: Order Comment: Name Collection Type:: Clean-Voided Midstream Performed By: #### C UU, UHCG, ADDONUAPLUS ####[address] Eosinophils Auto (Bld) [#/Vo l]Ordered By: Joseluis Vega on 11-22-2022 Eosinophils (Bld) [#/Vol] 0.2 10*3/uL 0.0-0.45 [facility] Eosinophils/100 WBC Auto (Bl d)Ordered By: Joseluis Vega on 11-22-2022 Eosinophils/100 WBC (Bld) 1.9 % . [facility] Erythrocyte distribution wid th Auto (RBC) [Ratio]Ordered By: Joseluis Vega on 11-22-2022 Erythrocyte distribution width (RBC) [Ratio] 12.7 % 11.9-15.3 [facility] Globulin Calc (S) [Mass/Vol] Ordered By: Joseluis Vega on 11-22-2022 Globulin (S) [Mass/Vol] 3.2 g/dL [facility] Glucose [Mass/volume] in Ser um or PlasmaOrdered By: Joseluis Vega on 11-22-2022 Glucose [Mass/Vol] 259 mg/dL 70-100 [facility] Comment on above: ADA recommended refe rence rangeRandom Glucose Reference Range is dependent on time and content of last meal. Glucose of more than 200 mg/dL in a nonstressed, ambulatory subject supports the diagnosis of Diabetes Mellitus. HCG ( test) IA.rapi d Ql (U)Ordered By: Joseluis Vega on 11-22-2022 HCG ( test) Ql (U) Negative [facility] HCG,Urineon 11-22-2022 Beta HCG ( test) Ql (U) Negative Normal [facility] Comment on above: Order Comment: Name Collection Type:: Clean-Voided Midstream Result Comment: PERF ORMED BY:[facility] [place], [place] [phone] MEDICAL DIRECTORNATAILA MIKE M.D. Performed By: #### C UU, CG, ADDONUAPLUS ####[facility] [place] [address] [facility] Hematocrit Auto (Bld) [Volum e fraction]Ordered By: Joseluis Vega on 11-22-2022 Hematocrit (Bld) [Volume fraction] 39.5 % 34.0-46.4 [facility] Hemoglobin [Mass/volume] in BloodOrdered By: Joseluis Vega on 11-22-2022 Hemoglobin (Bld) [Mass/Vol] 13.9 g/dL 11.8-15.4 [facility] Ketones Auto test strip (U) [Mass/Vol]Ordered By: Joseluis Vega on 11-22-2022 Ketones (U) [Mass/Vol] Negative Negative [facility] Laboratory - UrinalysisOrder ed By: Joseluis Vega on 11-22-2022 Hyaline casts LM Ql (Urine sed) None seen [LPF] 0-8 [facility] Leukocytes [#/volume] correc suzanne for nucleated erythrocytes in Blood by Automated counOrdered By: Joseluis Vega on 11-22-2022 WBC corrected for nucl RBC Auto (Bld) [#/Vol] 10.4 10*3/uL 3.8-11.6 [facility] Lipase [Enzymatic activity/v olume] in Serum or PlasmaOrdered By: Joseluis Vega on 11-22-2022 Lipase [Catalytic activity/Vol] 36.0 U/L 11.0-82.0 [facility] Lymphocytes Auto (Bld) [#/Vo l]Ordered By: Joseluis Vega on 11-22-2022 Lymphocytes (Bld) [#/Vol] 2.1 10*3/uL 1.00-4.8 [facility] Lymphocytes/100 WBC Auto (Bl d)Ordered By: Joseluis Vega on 11-22-2022 Lymphocytes/100 WBC (Bld) 20.5 % . [facility] MCH Auto (RBC) [Entitic mass ]Ordered By: Joseluis Vega on 11-22-2022 MCH (RBC) [Entitic mass] 30.4 pg 24.7-34.3 [facility] MCHC Auto (RBC) [Mass/Vol]Or dered By: Joseluis Vega on 11-22-2022 MCHC (RBC) [Mass/Vol] 35.1 g/dL 32.0-35.0 [facility] MCV Auto (RBC) [Entitic vol] Ordered By: Joseluis Vega on 11-22-2022 MCV (RBC) [Entitic vol] 86.6 fL 80-100 [facility] Monocyte distribution width [Entitic volume] in Blood by AutomatedOrdered By: Joseluis Vega on 11-22-2022 Monocyte distribution width Auto (Bld) [Entitic vol] 19.91 % 0.00-20.00 [facility] Monocytes Auto (Bld) [#/Vol] Ordered By: Joseluis Vega on 11-22-2022 Monocytes (Bld) [#/Vol] 0.6 10*3/uL 0.0-0.8 [facility] Monocytes/100 WBC Auto (Bld) Ordered By: Joseluis Vega on 11-22-2022 Monocytes/100 WBC (Bld) 6.1 % . [facility] Neutrophils Auto (Bld) [#/Vo l]Ordered By: Joseluis Vega on 11-22-2022 Neutrophils (Bld) [#/Vol] 7.4 10*3/uL 1.8-7.7 [facility] Neutrophils/100 WBC Auto (Bl d)Ordered By: Joseluis Vega on 11-22-2022 Neutrophils/100 WBC (Bld) 70.7 % . [facility] Nitrite Test strip Ql (U)Ord ered By: Joseluis Vega on 11-22-2022 Nitrite Ql (U) Negative Negative [facility] No Panel InformationOrdered By: Joseluis Vega on 11-22-2022 Estimated GFR (CKD-EPI) > 60.0 mL/Min [facility] Creatinine Clearance (Chem 147.22 [facility] > 60.0 mL/Min [facility] 147.22 [facility] None seen [LPF] 0-8 [facility] Nucleated erythrocytes [Pres ence] in Blood by Automated countOrdered By: Joseluis Vega on 11-22-2022 Nucleated RBC Auto Ql (Bld) 0.1 /100{WBC} 0-0.5 [facility] Platelet mean volume Auto (B ld) [Entitic vol]Ordered By: Joseluis Vega on 11-22-2022 Platelet mean volume (Bld) [Entitic vol] 7.4 fL 6.3-10.7 [facility] Platelets Auto (Bld) [#/Vol] Ordered By: Joseluis Vega on 11-22-2022 Platelets (Bld) [#/Vol] 224 10*3/uL 150-450 [facility] Potassium [Moles/volume] in Serum or PlasmaOrdered By: Joseluis Vega on 11-22-2022 Potassium [Moles/Vol] 3.9 mmol/L 3.5-5.1 [facility] Protein Auto test strip (U) [Mass/Vol]Ordered By: Joseluis Vgea on 11-22-2022 Protein (U) [Mass/Vol] Trace mg/dL Negative [facility] Protein [Mass/volume] in Ser um or PlasmaOrdered By: Joseluis Vega on 11-22-2022 Protein [Mass/Vol] 7.5 g/dL 6.4-8.9 [facility] RBC Auto (Bld) [#/Vol]Ordere d By: Joseluis Vega on 11-22-2022 RBC (Bld) [#/Vol] 4.56 10*6/uL 3.60-5.00 [facility] Serum or plasma albumin/glob ulin mass ratioOrdered By: Joseluis Vega on 11-22-2022 Albumin/Globulin [Mass ratio] 1.3 {ratio} [facility] Serum or plasma anion gap de terminationOrdered By: Joseluis Vega on 11-22-2022 Anion gap [Moles/Vol] 14.3 mmol/L 6.0-15.0 [facility] Serum or plasma non-glucuron idated bilirubin measurement (mass/volume)Ordered By: Joseluis Vega on 11-22-2022 Bilirubin.indirect [Mass/Vol] 0.4 mg/dL [facility] Sodium [Moles/volume] in Ser um or PlasmaOrdered By: Joseluis Vega on 11-22-2022 Sodium [Moles/Vol] 139 mmol/L 136-145 [facility] Specific gravity Auto test s trip (U) [Rel density]Ordered By: Joseluis Vega on 11-22-2022 Specific gravity (U) [Rel density] 1.012 1.001-1.03 0 [facility] Squamous epithelial cells de tection in urine sediment by light microscopyOrdered By: Joseluis Vega on 11-22-2022 Epithelial cells.squamous LM Ql (Urine sed) 1-2 [HPF] 0-2 [facility] Urea nitrogen [Mass/volume] in Serum or PlasmaOrdered By: Joseluis Vega on 11-22-2022 Urea nitrogen [Mass/Vol] 15 mg/dL 7-25 [facility] Urine Cultureon 11-22-2022 Bacteria identified Cx Nom (U) Normal [facility] Comment on above: Performed By: #### C UU, UHCG, ADDONUAPLUS ####[facility] [id number] [place] [address] [facility] Urine bacteria detection by automated methodOrdered By: Joseluis Vega on 11-22-2022 Bacteria Auto Ql (U) None seen None Seen [facility] Urine clarity by refractomet ry automatedOrdered By: Joseluis Vega on 11-22-2022 Clarity Refractometry automated (U) Clear Clear [facility] Urine culture routineOrdered By: Joseluis Vega on 11-22-2022 Bacteria identified Cx Nom (U) 2 Days [facility] Urine glucose measurement by automated test strip (mass/volume)Ordered By: Joseluis Vega on 11-22-2022 Glucose Auto test strip (U) [Mass/Vol] Normal mg/dL Normal [facility] Urine hemoglobin detection b y automated test stripOrdered By: Joseluis Vega on 11-22-2022 Hemoglobin Auto test strip Ql (U) 3+ Negative [facility] Urine leukocyte esterase det ection by automated test stripOrdered By: Joseluis Vega on 11-22-2022 Leukocyte esterase Auto test strip Ql (U) 2+ Negative [facility] Urobilinogen Auto test strip (U) [Mass/Vol]Ordered By: Joseluis Vega on 11-22-2022 Urobilinogen (U) [Mass/Vol] Normal mg/dL Normal [facility] WBC Auto (Bld) [#/Vol]Ordere d By: Joseluis Vega on 11-22-2022 WBC (Bld) [#/Vol] 10.4 10*3/uL 3.8-11.6 [facility] pH Auto test strip (U)Ordere d By: Joseluis Vega on 11-22-2022 pH (U) 6.0 [pH] 5.0-9.0 [facility] Auto Diffon 11-03-2022 Basophils/100 WBC (Bld) 1.3 % Normal 0.0-2.0 [facility] Comment on above: Order Comment: Order Added by Discern Expert. Performed By: #### 2 [id number], [id number], [id number], [id number], [id number] ####[facility] [address] [place] [address] Basophils/Leukocytes Auto (Bld) [Pure # fraction] 0.1 E9/L Normal 0.0-0.2 [facility] Comment on above: Order Comment: Order Added by Discern Expert. Performed By: #### 2 125004, [id number], [id number], [id number], [id number] ####[place] [address] [place] [address] Eosinophils/100 WBC (Bld) 5.0 % Normal 0.0-8.0 [facility] Comment on above: Order Comment: Order Added by Ariel Expert. Performed By: #### 2 925446, [id number], [id number], 4271205, [id number] ####[facility] [address] [place] [address] Eosinophils/Leukocytes Auto (Bld) [Pure # fraction] 0.3 E9/L Normal 0.0-0.5 [facility] Comment on above: Order Comment: Order Added by Ariel Expert. Performed By: #### 2 446919, [id number], [id number], [id number], [id number] ####[address] [address] Lymphocytes/100 WBC (Bld) 28.2 % Normal 14.0-50.0 [facility] Comment on above: Order Comment: Order Added by Ariel Expert. Performed By: #### 2 406788, [id number], 7866892, 9041785, [id number] ####[address] [address] Lymphocytes/Leukocytes Auto (Bld) [Pure # fraction] 1.6 E9/L Normal 1.0-4.0 [facility] Comment on above: Order Comment: Order Added by Ariel Expert. Performed By: #### 2 801712, [id number], 5541337, [id number], [id number] ####[address] [address] Monocytes/100 WBC (Bld) 7.2 % Normal 4.0-14.0 [facility] Comment on above: Order Comment: Order Added by Ariel Expert. Performed By: #### 2 675324, [id number], 3905634, [id number], [id number] ####[place] [address] [place] [address] Monocytes/Leukocytes Auto (Bld) [Pure # fraction] 0.4 E9/L Normal 0.2-1.0 [facility] Comment on above: Order Comment: Order Added by Discern Expert. Performed By: #### 2 472632, [id number], [id number], 3938239, [id number] ####[place] [address] [place] [address] Neutrophils/100 WBC (Bld) 58.3 % Normal 36.0-75.0 [facility] Comment on above: Order Comment: Order Added by Discern Expert. Performed By: #### 2 707936, [id number], 7553941, 5689125, [id number] ####[place] [address] [place] [address] Neutrophils/Leukocytes Auto (Bld) [Pure # fraction] 3.3 E9/L Normal 2.0-7.5 [facility] Comment on above: Order Comment: Order Added by Discern Expert. Performed By: #### 2 266025, [id number], 6314206, 2255231, [id number] ####[facility] [address] [place] [address] BMPon 11-03-2022 Creatinine [Mass/Vol] 0.7 mg/dL Normal 0.5-1.3 [facility] Comment on above: Performed By: #### 2 156978, [id number], 7150333, 0277186, [id number] ####[facility] [address] [place] [address] Urea nitrogen [Mass/Vol] 10 mg/dL Normal 5-21 [facility] Comment on above: Performed By: #### 2 783749, [id number], 1327146, 5976157, [id number] ####[place] [address] [place] [address] Urea nitrogen/Creatinine [Mass ratio] 14 No Units Normal 10-20 [facility] Comment on above: Performed By: #### 2 907862, [id number], 5651714, [id number], [id number] ####[facility] [address] [place] [address] Anion gap [Moles/Vol] 13 mmol/L Normal 6-16 [facility] Comment on above: Performed By: #### 2 440689, [id number], 6701679, 9619440, [id number] ####[facility] [address] [place] [address] Calcium [Mass/Vol] 9.3 mg/dL Normal 8.9-11.1 [facility] Comment on above: Performed By: #### 2 076464, [id number], 4441953, 5028734, [id number] ####[facility] [address] [place] [address] Chloride [Moles/Vol] 97 mmol/L Low 101-111 [facility] Comment on above: Performed By: #### 2 864011, [id number], 7765586, 3962941, [id number] ####[facility] [facility] [address] [place] [address] CO2 [Moles/Vol] 27 mmol/L Normal 21-[address] [facility] Comment on above: Performed By: #### 2 310179, 95060459, 4505819, 6134331, 35553008 ####[facility] [address] [place] [address] Glucose [Mass/Vol] 384 mg/dL High 55-199 [facility] Comment on above: Result Comment: If t his glucose result represents a fasting glucose, interpretation should refer to the following reference range: 55-99 mg/dL Performed By: #### 2 572160, 10724358, 4871283, 9603906, 22161280 ####[facility] [address] [place] [address] Potassium [Moles/Vol] 4.1 mmol/L Normal 3.5-5.3 [facility] Comment on above: Performed By: #### 2 404117, 33906054, 7734379, 2175583, 76820802 ####[facility] [address] [place] [address] Sodium [Moles/Vol] 133 mmol/L Low 135-145 [facility] Comment on above: Performed By: #### 2 981908, 17470471, 6382742, 8209255, 49540107 ####[facility] [address] [place] [address] CBC w/ Auto Diffon 3 Erythrocyte distribution width (RBC) [Ratio] 12.8 % Normal 10.9-14.2 [facility] Comment on above: Performed By: #### 2 439709, 09318434, 9670071, 2329265, 22081375 ####[facility] [address] [place] [address] Hematocrit (Bld) [Volume fraction] 41.5 % Normal 34.0-46.0 [facility] Comment on above: Performed By: #### 2 295313, 42716189, 6788391, 6530415, 10113544 ####[facility] [address] [place] [address] Hemoglobin (Bld) [Mass/Vol] 13.9 g/dL Normal 12.0-16.0 [facility] Comment on above: Performed By: #### 2 051552, 07383655, 0247628, 3080336, 51330059 ####[facility] [address] [place] [address] MCH (RBC) [Entitic mass] 29.2 pg Normal 27.0-34.0 [facility] Comment on above: Performed By: #### 2 684019, 54334613, 9835863, 4527118, 02090952 ####[facility] [address] [place] [address] MCHC (RBC) [Mass/Vol] 33.6 g/dL Normal 31.4-36.0 [facility] Comment on above: Performed By: #### 2 272549, 15454961, 5879843, 1981804, 90971666 ####[address] [place] [address] MCV (RBC) [Entitic vol] 86.9 fL Normal 80.0-100.0 [facility] Comment on above: Performed By: #### 2 034502, 63634530, 3045271, 3622368, 85709569 ####[address] [address] Platelet mean volume (Bld) [Entitic vol] 7.1 fL Normal 6.4-10.8 [facility] Comment on above: Performed By: #### 2 446863, 43693050, 5077337, 1606818, 04236775 ####[address] [address] Platelets (Bld) [#/Vol] 202.0 E9/L Normal 150.0-500. 0 [facility] Comment on above: Performed By: #### 2 636738, 14818861, 2511304, 6463490, 77200307 ####[address] [address] RBC (Bld) [#/Vol] 4.8 E12/L Normal 4.3-5.9 [facility] Comment on above: Performed By: #### 2 484420, 70042904, 9291442, 0973376, 35074535 ####[address] [place] [address] WBC corrected for nucl RBC Auto (Bld) [#/Vol] 5.7 E9/L Normal 4.0-11.[address] [facility] Comment on above: Performed By: #### 2 091709, 58959700, 0772906, 4924679, 13175999 ####[facility] [address] [place] [address] CHEMISTRYOrdered By: Lab ROP User on 11-03-2022 Glucose [Mass/Vol] 347 mg/dL High 55 - 99 mg/dL [facility] POC Subsection Comment on above: Result Comment: Joselyn jennings RN/ POC Device SN [id number] Invalid Interpretation Code [facility] POC Subsection POC User ID [id number] Invalid Interpretation Code [facility] POC Subsection POC Username JUANCARLOS CASTANEDA Invalid Interpretation Code [facility] POC Subsection Capillary Glucose POCon 05 Glucose [Mass/Vol] 347 mg/dL High 55-99 [facility] Comment on above: Result Comment: Joselyn jennings RN/ Performed By: #### 2 [id number] ####[facility] [address] [place] [address] Discharge Instructionson Discharge Instructions [id number]#[id number]:1 27 Normal [facility] ED Clinical Summaryon 2022 ED Clinical Summary Normal [facility] ED Note-Physicianon 11-04-19 23 ED Note-Physician Normal [facility] Comment on above: Result Comment: Elec tronically Signed By: Grey Putnam DO\.br\Date and Time Signed: 11/03/22 01:54 EDT ED Patient Education Noteon 11-03-2022 ED Patient Education Note Normal [facility] ED Patient Summaryon 023 ED Patient Summary Normal [facility] Troponin 0 Hr.on 11-03-2022 Troponin I.cardiac [Mass/Vol] 3.00 pg/mL Low 10.10-27.1 0 [facility] Comment on above: Result Comment: The 95% CI (Confidence Interval) PPV (Positive Predictive Value) for myocardial infarction in females is 38 pg/mL, in males 51 pg/mL. The results should be used in conjunction with clinical conditions of myocardial infarction.(Access High Sensitivity Troponin I Instructions For Use, Wilfrido [place], January 2018) Performed By: #### 2 711592, 71694321, 2182239, 9382159, 21818920 ####[facility] [address] [place] [address] XR Chest Single Viewon 11-03 XR Chest Single View Normal [facility] XR Hip 2-3 Views Righton XR Hip 2-3 Views Right Normal Fi [facility] XR Knee Complete 4+ Views Ri jaime 11-03-2022 XR Knee Complete 4+ Views Right Normal [facility] XR Shoulder Complete Righton 11-03-2022 XR Shoulder Complete Right Normal [facility] eGFRon 11-03-2022 GFR/1.73 sq M.predicted among non-blacks MDRD (S/P/Bld) [Vol rate/Area] 107 mL/min/1.73 m2 Normal >=59 [facility] Comment on above: Order Comment: Order added by Discern Expert. 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 Kidney failure is indicated at less than 15 mL/min/1.73m2. Performed By: #### 2 784772, 19948940, 1887113, 6164494, 93824546 ####[facility] [address] [place] [address] CHEMISTRYOrdered By: SYSTEM SYSTEM on 11-02-2022 Anion [...] 107 mL/min/1.73 m2 Normal >=59mL/min /1.73 m2 [facility] Chem S Glucose [Mass/Vol] 384 mg/dL High 55 - 199 mg/dL [facility] Potassium [Moles/Vol] 4.1 mmol/L Normal 3.5 - 5.3 mmol/L [facility] Sodium [Moles/Vol] 133 mmol/L Low 135 - 145 mmol/L [facility] Remisol Troponin I.cardiac [Mass/Vol] 3.00 pg/mL Low 10.10 - 27.10 pg/mL [facility] Remisol Urea nitrogen [Mass/Vol] 10 mg/dL Normal 5 - 21 mg/dL [facility] Remisol Urea nitrogen/Creatinine [Mass ratio] 14 mg/mg Normal 10 - 20 [facility] Remisol Consent for Treatmenton Consent for Treatment [id number]#[id number]:12 7 Normal [facility] HEMATOLOGYOrdered By: SYSTEM SYSTEM on 11-02-2022 Basophils/100 WBC (Bld) 1.3 % Normal 0.0 - 2.0 % [facility] [...] 41.5 % Normal 34.0 - 46.0 % [facility]eAutoSS Hemoglobin (Bld) [Mass/Vol] 13.9 g/dL Normal [...] 5.7 E9/L Normal 4.0 - 11.0 E9/L [facility] HemeAutoSS ECG 12 lead ECGon 10-30-2022 ECG 12 lead ECG Normal [facility] Coding Summary.on 10-29-2022 Coding Summary. Normal [facility] CT head/brain wo conon 10-28 CT head/brain wo con Normal [facility] CT lumbar spine wo conon CT lumbar spine wo con Normal [facility] Discharge Instructionson Discharge Instructions [id number]#[id number]:1 27 Normal [facility] ED Clinical Summaryon 2022 ED Clinical Summary Normal [facility] ED Note-Physicianon 10-29-19 ED Note-Physician Normal [facility] Comment on above: Result Comment: Elec tronically Signed By: Gatito HATCH, Jose Wheeler\.br\Date and Time Signed: 10/27/22 23:07 EDT\.br\Electronically Co-Signed By: Grey Putnam DO\.br\Date and Time Co-Signed: 10/28/22 03:55 EDT ED Patient Education Noteon 10-28-2022 ED Patient Education Note Normal [facility] ED Patient Summaryon 023 ED Patient Summary Normal [facility] XR Abdomen 1 Viewon 10-29-19 XR Abdomen 1 View Normal [facility] XR Chest Single Viewon 10-28 XR Chest Single View Normal [facility] XR knee LT 4V*on 10-28-2022 XR knee LT 4V* Normal [facility] Auto Diffon 10-27-2022 Basophils/100 WBC (Bld) 0.9 % Normal 0.0-2.0 [facility] Comment on above: Order Comment: Order Added by Discern Expert. Performed By: #### 2 873763, 1690236, 55642697, 9803105, 9027525, 1917979 ####[facility] [address] [place] [address] Basophils/Leukocytes Auto (Bld) [Pure # fraction] 0.1 E9/L Normal 0.0-0.2 [facility] Comment on above: Order Comment: Order Added by Discern Expert. Performed By: #### 2 395749, 5195044, 08073701, 9493099, 2433101, 6190981 ####[facility] [address] [place] [address] Eosinophils/100 WBC (Bld) 3.1 % Normal 0.0-8.0 [facility] Comment on above: Order Comment: Order Added by Discern Expert. Performed By: #### 2 969123, 1393881, 66769923, 4169425, 6083093, 4062891 ####[facility] [address] [place] [address] Eosinophils/Leukocytes Auto (Bld) [Pure # fraction] 0.3 E9/L Normal 0.0-0.5 [facility] Comment on above: Order Comment: Order Added by Discern Expert. Performed By: #### 2 460589, 1535659, 36756262, 4482409, 0109885, 1925744 ####[address] [address] Lymphocytes/100 WBC (Bld) 27.8 % Normal 14.0-50.0 [facility] Comment on above: Order Comment: Order Added by Discern Expert. Performed By: #### 2 455769, 5872699, 26053314, 5450158, 3611116, 0407992 ####[address] [address] Lymphocytes/Leukocytes Auto (Bld) [Pure # fraction] 2.5 E9/L Normal 1.0-4.0 [facility] Comment on above: Order Comment: Order Added by Discern Expert. Performed By: #### 2 146065, 9627457, 66478597, 0902073, 3115750, 8353542 ####[address] [address] Monocytes/100 WBC (Bld) 6.6 % Normal 4.0-14.0 [facility] Comment on above: Order Comment: Order Added by Discern Expert. Performed By: #### 2 179176, 1503985, 03185091, 9113052, 6486396, 2443740 ####[address] [address] Monocytes/Leukocytes Auto (Bld) [Pure # fraction] 0.6 E9/L Normal 0.2-1.0 [facility] Comment on above: Order Comment: Order Added by Discern Expert. Performed By: #### 2 664418, 3107703, 80087826, 5927342, 0189270, 0752796 ####[address] [address] Neutrophils/100 WBC (Bld) 61.6 % Normal 36.0-75.0 [facility] Comment on above: Order Comment: Order Added by Discern Expert. Performed By: #### 2 702086, 0645585, 55869716, 1927507, 0268189, 4979914 ####[address] [place] [address] Neutrophils/Leukocytes Auto (Bld) [Pure # fraction] 5.4 E9/L Normal 2.0-7.5 [facility] Comment on above: Order Comment: Order Added by Discern Expert. Performed By: #### 2 261301, 8736925, 86039114, 7446417, 0652832, 1997748 ####[facility] [address] [place] [address] BMPon 10-27-2022 Anion gap [Moles/Vol] 13 mmol/L Normal 6-16 [facility] Comment on above: Performed By: #### 2 847286, 6581886, 43745974, 6047894, 9086547, 0768813 ####[facility] [address] [place] [address] Calcium [Mass/Vol] 9.6 mg/dL Normal 8.9-11.1 [facility] Comment on above: Performed By: #### 2 925723, 5396728, 46079860, 8530207, 7628192, 9477020 ####[facility] [address] [place] [address] Chloride [Moles/Vol] 102 mmol/L Normal 101-111 [facility] Comment on above: Performed By: #### 2 889736, 5144030, 84702655, 1160139, 3596437, 4280001 ####[facility] [address] [place] [address] CO2 [Moles/Vol] 25 mmol/L Normal 21-[address] [facility] Comment on above: Performed By: #### 2 619837, 0328409, 48299583, 8101196, 1771101, 4441408 ####[facility] [address] [place] [address] Creatinine [Mass/Vol] 0.7 mg/dL Normal 0.5-1.3 [facility] Comment on above: Performed By: #### 2 008681, 4355067, 38606915, 2612657, 6795344, 2531394 ####[facility] [address] [place] [address] Glucose [Mass/Vol] 312 mg/dL High 55-199 [facility] Comment on above: Result Comment: If t his glucose result represents a fasting glucose, interpretation should refer to the following reference range: 55-99 mg/dL Performed By: #### 2 930518, 1011549, 04543162, 8130521, 1945492, 1839124 ####[facility] [address] [place] [address] Potassium [Moles/Vol] 4.0 mmol/L Normal 3.5-5.3 [facility] Comment on above: Result Comment: 'Spe cimen hemolyzed. Result may be affected. Redraw is recommended.' Performed By: #### 2 588811, 6939835, 08201280, 7796687, 8460374, 2045559 ####[facility] [address] [place] [address] Sodium [Moles/Vol] 136 mmol/L Normal 135-145 [facility] Comment on above: Performed By: #### 2 327950, 9134580, 47155731, 3648314, 1663423, 7087074 ####[facility] [address] [place] [address] Urea nitrogen [Mass/Vol] 16 mg/dL Normal 5-21 [facility] Comment on above: Performed By: #### 2 067222, 9998635, 22217911, 0728384, 6413747, 5614446 ####[facility] [address] [place] [address] Urea nitrogen/Creatinine [Mass ratio] 23 No Units High 10-20 [facility] Comment on above: Performed By: #### 2 245209, 0818672, 75753072, 0462628, 8044259, 6875249 ####[facility] [address] [place] [address] CBC w/ Auto Diffon 05-01-202 3 Erythrocyte distribution width (RBC) [Ratio] 12.7 % Normal 10.9-14.2 [facility] Comment on above: Performed By: #### 2 901083, 0570726, 26397140, 7921239, 9843921, 1617758 ####[address] [address] Hematocrit (Bld) [Volume fraction] 42.1 % Normal 34.0-46.0 [facility] Comment on above: Performed By: #### 2 278782, 2869229, 29325791, 7815461, 1871151, 0509252 ####[address] [address] Hemoglobin (Bld) [Mass/Vol] 14.5 g/dL Normal 12.0-16.0 [facility] Comment on above: Performed By: #### 2 970998, 4203007, 78564918, 2122040, 3519297, 4587478 ####[address] [address] MCH (RBC) [Entitic mass] 29.9 pg Normal 27.0-34.0 [facility] Comment on above: Performed By: #### 2 274970, 4397800, 12455921, 5485874, 9444749, 8614123 ####[address] [address] MCHC (RBC) [Mass/Vol] 34.3 g/dL Normal 31.4-36.0 [facility] Comment on above: Performed By: #### 2 466748, 5212873, 68506442, 8048679, 0829761, 4575849 ####[address] [address] MCV (RBC) [Entitic vol] 87.1 fL Normal 80.0-100.0 [facility] Comment on above: Performed By: #### 2 994976, 6084891, 02334275, 8288827, 5642967, 6282357 ####[address] [place] [address] Platelet mean volume (Bld) [Entitic vol] 7.5 fL Normal 6.4-10.8 [facility] Comment on above: Performed By: #### 2 489428, 3075054, 66383028, 1793285, 1855638, 3028177 ####[address] [place] [address] Platelets (Bld) [#/Vol] 244.0 E9/L Normal 150.0-500. 0 [facility] Comment on above: Result Comment: Slid e reviewed by Kamron to obtain accurate platelet count due to platelet clumping. Platelet count estimate appears normal on slide.. Performed By: #### 2 467245, 9894030, 63355945, 9787042, 7642009, 1577741 ####[address] [place] [address] RBC (Bld) [#/Vol] 4.8 E12/L Normal 4.3-5.9 [facility] Comment on above: Performed By: #### 2 511841, 5004151, 10835843, 7015750, 6008562, 7163353 ####[address] [place] [address] WBC corrected for nucl RBC Auto (Bld) [#/Vol] 8.8 E9/L Normal 4.0-11.[address] [facility] Comment on above: Performed By: #### 2 885067, 0000962, 57871547, 8326492, 2719779, 6860897 ####[address] [place] [address] CHEMISTRYOrdered By: SYSTEM SYSTEM on 10-27-2022 Albumin [...] 107 mL/min/1.73 m2 Normal >=59mL/min /1.73 m2 FT [...] Remisol Consent for Treatmenton Consent for Treatment [id number]:12 7 Normal [facility] HEMATOLOGYOrdered By: SYSTEM SYSTEM on 10-27-2022 Basophils/100 [...] 5.4 E9/L Normal 2.0 - 7.5 E9/L [facility] HEMATOLOGYOrdered By: Linda Montilla on 10-27-2022 Erythrocyte distribution width (RBC) [Ratio] 12.7 % Normal 10.9 - 14.2 % [facility] Hematocrit (Bld) [Volume fraction] 42.1 % Normal 34.0 - 46.0 % [facility] Hemoglobin (Bld) [Mass/Vol] 14.5 g/dL Normal 12.0 - 16.0 gm/dL FT [facility] MCH (RBC) [Entitic mass] 29.9 pg Normal 27.0 - 34.0 pg FT [facility] MCHC (RBC) [Mass/Vol] 34.3 g/dL Normal 31.4 - 36.0 gm/dL [facility] MCV (RBC) [Entitic vol] 87.1 fL Normal 80.0 - 100.0 fL [facility] Platelet mean volume (Bld) [Entitic vol] 7.5 fL Normal 6.4 - 10.8 fL [facility] Platelets (Bld) [#/Vol] 244.0 E9/L Normal 150.0 - 500.0 E9/L [facility] Comment on above: Result Comment: Slid e reviewed by ts Unable to obtain accurate platelet count due to platelet clumping. Platelet count estimate appears normal on slide.. RBC (Bld) [#/Vol] 4.8 E12/L Normal 4.3 - 5.9 E12/L [facility] HemeAutoSS WBC corrected for nucl RBC Auto (Bld) [#/Vol] 8.8 E9/L Normal 4.0 - 11.0 E9/L [facility] HemeAutoSS Hep Func Panelon 10-27-2022 Albumin [Mass/Vol] 4.4 g/dL Normal 3.3-5.0 [facility] Comment on above: Performed By: #### 2 760261, 4713205, 98734572, 6422133, 8102598, 3338509 ####[address] [place] [address] Albumin/Globulin (S) [Mass conc ratio] 1.1 Normal 1.1-2.2 [facility] Comment on above: Performed By: #### 2 180735, 6186967, 95225267, 5385876, 1704422, 3147937 ####[facility] [address] [place] [address] ALP [Catalytic activity/Vol] 76 Int._Unit/L Normal 21-98 [facility] Comment on above: Performed By: #### 2 540035, 1003176, 30496624, 6298211, 8670577, 7223664 ####[facility] [address] [place] [address] ALT No additional P-5'-P [Catalytic activity/Vol] 18 Int._Unit/L Normal 6-46 [facility] Comment on above: Result Comment: 'Spe cimen hemolyzed, result may be affected. Recommend redraw.' Performed By: #### 2 355090, 5647904, 64530215, 4855158, 1010223, 7376590 ####[facility] [address] [place] [address] AST [Catalytic activity/Vol] 33 Int._Unit/L Normal 5-43 [facility] Comment on above: Result Comment: 'Spe cimen hemolyzed, result may be affected. Recommend redraw.' Performed By: #### 2 803955, 1426626, 35066244, 8534338, 4911552, 9415108 ####[facility] [address] [place] [address] Bilirubin [Mass/Vol] 0.9 mg/dL Normal 0.0-1.1 [facility] Comment on above: Result Comment: 'Spe cimen hemolyzed, result may be affected. Redraw is recommended.' Performed By: #### 2 348961, 8277520, 79949660, 6447573, 3757923, 7492180 ####[facility] [address] [place] [address] Bilirubin.direct [Mass/Vol] 0.2 mg/dL Normal 0.1-0.4 [facility] Comment on above: Result Comment: 'Spe cimen hemolyzed, result may be affected. Redraw recommended.' Performed By: #### 2 016283, 6796184, 36289435, 3374976, 2205934, 6810071 ####[facility] [address] [place] [address] Bilirubin.indirect [Mass or moles/Vol] 0.6 mg/dL Normal 0.1-0.9 [facility] Comment on above: Performed By: #### 2 772650, 6746674, 10692477, 5657074, 2192144, 5011120 ####[facility] [address] [place] [address] Globulin (S) [Mass/Vol] 3.9 g/dL Normal 1.4-4.0 [facility] Comment on above: Performed By: #### 2 502372, 2115456, 66686347, 8750509, 1317839, 9758328 ####[facility] [address] [place] [address] Protein [Mass/Vol] 8.3 g/dL High 6.0-7.8 [facility] Comment on above: Performed By: #### 2 922742, 8786554, 64956455, 0418789, 2765432, 7956331 ####[facility] [address] [place] [address] Lipase Levelon 10-27-2022 Lipase [Catalytic activity/Vol] 50 U/L Normal 13-58 [facility] Comment on above: Performed By: #### 2 997911, 6352426, 59175416, 3606617, 4400695, 0644049 ####[facility] [address] [place] [address] UA With Cult Reflexon 2022 Bacteria LM Ql (Urine sed) TRACE Normal Trace [facility] Comment on above: Performed By: #### 1 0906473 ####[facility] [address] [place] [address] Bilirubin Ql (U) Negative Normal Negative [facility] Comment on above: Performed By: #### 1 3509400 ####[facility] [address] [place] [address] Clarity (U) SL CLOUDY Abnormal Clear [facility] Comment on above: Performed By: #### 1 9689584 ####[facility] [address] [place] [address] Color (U) YELLOW Normal Yellow [facility] Comment on above: Performed By: #### 1 9073369 ####[facility] [address] [place] [address] Epithelial cells.squamous LM.HPF (Urine sed) [#/Area] 3-4 Normal 0-2 [facility] Comment on above: Performed By: #### 1 0197416 ####[facility] [address] [place] [address] Glucose Test strip (U) [Mass/Vol] 3+ Abnormal Negative [facility] Comment on above: Performed By: #### 1 1139828 ####[facility] [address] [place] [address] Hemoglobin Ql (U) 3+ Abnormal Negative [facility] Comment on above: Performed By: #### 1 1225631 ####[facility] [facility] [address] [place] [address] Ketones (U) [Mass/Vol] Negative Normal Negative [facility] Comment on above: Performed By: #### 1 [id number] ####[facility] [address] [place] [address] [place].plasma/[place] .RBC (Bld) [Mass ratio] >30 Abnormal 0-3 [facility] Comment on above: Performed By: #### 1 [id number] ####[facility] [address] [place] [address] Nitrite Ql (U) Negative Normal Negative [facility] Comment on above: Performed By: #### 1 [id number] ####[facility] [address] [place] [address] pH (U) 6.0 [pH] Invalid Interpretation Code 5.0-9.0 [facility] Comment on above: Performed By: #### 1 2369300 ####[place] [address] Protein (U) [Mass/Vol] Negative Normal Negative [facility] Comment on above: Performed By: #### 1 [id number] ####[place] [address]57 Specific gravity (U) [Rel density] 1.020 Invalid Interpretation Code 1.005-1.03 0 [facility] Comment on above: Performed By: #### 1 [id number] ####[place] [address] Type of Urine collection method Clean Catch Normal [facility] Comment on above: Performed By: #### 1 3020622 ####[place] [address] Urobilinogen Qn (U) 0.2 {Diaz'U}/dL Normal 0.0-1.0 [facility] Comment on above: Performed By: #### 1 2865527 ####[place] [address]57 WBC Auto Ql (U) Negative Normal Negative [facility] Comment on above: Performed By: #### 1 3688112 ####[place] [address]57 WBC LM.HPF (Urine sed) [#/Area] 0-5 Normal 0-5 [facility] Comment on above: Performed By: #### 1 [id number] ####[place] [address] URINALYSISOrdered By: Mark Kate on 10-27-2022 Bacteria LM Ql (Urine sed) Trace /HPF Normal Trace/HPF FT UA Auto SS Bilirubin Ql (U) Negative (10/27/22 8:49 PM) Normal Negative FT UA Auto SS Clarity (U) Slightly Cloudy [...] PM) Normal Negative [facility] UA Auto SS [place].plasma/[place] .RBC (Bld) [Mass ratio] >30 /HPF Invalid [...] Desc Clean Catch (10/27/22 8:49 PM) Normal [facility] UA Auto SS Urobilinogen Qn (U) 0.6839918 {Diaz'U}/dL Normal 0.0 - 1.0 EU/dL [facility] UA Auto SS WBC Auto Ql (U) Negative (10/27/22 8:49 PM) Normal Negative [facility] UA Auto SS WBC LM.HPF (Urine sed) [#/Area] 0-5 /HPF Normal 0-5/HPF [facility] UA Auto SS eGFRon 10-27-2022 GFR/1.73 sq M.predicted among non-blacks MDRD (S/P/Bld) [Vol rate/Area] 107 mL/min/1.73 m2 Normal >=59 [facility] Comment on above: Order Comment: Order added by Discern Expert. 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 Kidney failure is indicated at less than 15 mL/min/1.73m2. Performed By: #### 2 697471, 0617331, 06585087, 9899038, 4870531, 5826477 ####[facility] [address] [place] [address] Coding Summary.on 10-22-2022 Coding Summary. Normal [facility] ED Note-Physicianon 10-22-19 ED Note-Physician Normal [facility] Comment on above: Result Comment: Elec tronically Signed By: Jose Mederos PA-C\.br\Date and Time Signed: 10/19/22 19:18 EDT\.br\Electronically Co-Signed By: Agatha Stinson M.D.\.br\Date and Time Co-Signed: 10/20/22 23:24 EDT Auto Diffon 10-19-2022 Basophils/100 WBC (Bld) 0.9 % Normal 0.0-2.0 [facility] Comment on above: Order Comment: Order Added by Ariel Expert. Performed By: #### 2 468084, 74251567, 4317638, 6020191, 55600610, 8382701, 6798525 ####[facility] [address] [place] [address] Basophils/Leukocytes Auto (Bld) [Pure # fraction] 0.1 E9/L Normal 0.0-0.2 [facility] Comment on above: Order Comment: Order Added by Discern Expert. Performed By: #### 2 494071, 84755296, 5348651, 5661132, 54906988, 0763289, 9042410 ####[facility] [address] [place] [address] Eosinophils/100 WBC (Bld) 4.9 % Normal 0.0-8.0 [facility] Comment on above: Order Comment: Order Added by Discern Expert. Performed By: #### 2 516995, 95624412, 5716559, 5721718, 63464621, 4778594, 4203498 ####[address] [address] Eosinophils/Leukocytes Auto (Bld) [Pure # fraction] 0.4 E9/L Normal 0.0-0.5 [facility] Comment on above: Order Comment: Order Added by Discern Expert. Performed By: #### 2 398053, 55675024, 0496959, 9923943, 78264638, 7912653, 9593860 ####[address] [address] Lymphocytes/100 WBC (Bld) 24.2 % Normal 14.0-50.0 [facility] Comment on above: Order Comment: Order Added by Discern Expert. Performed By: #### 2 046060, 57332846, 6558641, 0873701, 25095594, 8049765, 7499692 ####[address] [address] Lymphocytes/Leukocytes Auto (Bld) [Pure # fraction] 1.9 E9/L Normal 1.0-4.0 [facility] Comment on above: Order Comment: Order Added by Discern Expert. Performed By: #### 2 441510, 09491615, 8736092, 1918944, 17905063, 7745562, 3670981 ####[address] [address] Monocytes/100 WBC (Bld) 7.6 % Normal 4.0-14.0 [facility] Comment on above: Order Comment: Order Added by Discern Expert. Performed By: #### 2 339475, 38328952, 9681613, 1087911, 35411025, 8383633, 8676040 ####[address] [address] Monocytes/Leukocytes Auto (Bld) [Pure # fraction] 0.6 E9/L Normal 0.2-1.0 [facility] Comment on above: Order Comment: Order Added by Discern Expert. Performed By: #### 2 827614, 53056890, 0199889, 4898021, 19783709, 6760403, 4422486 ####[place] [address] [place] [address] Neutrophils/100 WBC (Bld) 62.4 % Normal 36.0-75.0 [facility] Comment on above: Order Comment: Order Added by Discern Expert. Performed By: #### 2 818948, 42469895, 5918439, 0226859, 21481604, 7523849, 2228389 ####[place] [address] [place] [address] Neutrophils/Leukocytes Auto (Bld) [Pure # fraction] 5.0 E9/L Normal 2.0-7.5 [facility] Comment on above: Order Comment: Order Added by Discern Expert. Performed By: #### 2 380225, 97828444, 6477727, 4460975, 48880357, 0715348, 2813710 ####[address] [address] B hCG Qualon 10-19-2022 Beta hCG Ql Negative Normal [facility] Comment on above: Performed By: #### 2 071631, 10750252, 6053577, 6050245, 37525979, 0436077, 3802932 ####[address] [address] BMPon 10-19-2022 Creatinine [Mass/Vol] 0.6 mg/dL Normal 0.5-1.3 [facility] Comment on above: Performed By: #### 2 070109, 77794702, 7205168, 0298186, 17357529, 7484608, 0526760 ####[address] [address] Urea nitrogen [Mass/Vol] 19 mg/dL Normal 5-21 [facility] Comment on above: Performed By: #### 2 974683, 58135480, 5945474, 3797902, 27427750, 0272413, 8333489 ####[address] [address] Urea nitrogen/Creatinine [Mass ratio] 32 No Units High 10-20 [facility] Comment on above: Performed By: #### 2 202273, 32078167, 6800685, 6090300, 77809179, 0202145, 9340470 ####[facility] [address] [place] [address] Anion gap [Moles/Vol] 12 mmol/L Normal 6-16 [facility] Comment on above: Performed By: #### 2 314473, 78175218, 8429409, 3153242, 38164771, 9571600, 4002760 ####[facility] [address] [place] [address] Calcium [Mass/Vol] 9.7 mg/dL Normal 8.9-11.1 [facility] Comment on above: Performed By: #### 2 101939, 28913292, 0298061, 1320612, 28024997, 5126108, 5102107 ####[facility] [address] [place] [address] Chloride [Moles/Vol] 101 mmol/L Normal 101-111 [facility] Comment on above: Performed By: #### 2 682305, 37214146, 4992958, 8771645, 16330666, 1977704, 7425529 ####[facility] [address] [place] [address] CO2 [Moles/Vol] 29 mmol/L Normal 21-[address] [facility] Comment on above: Performed By: #### 2 165138, 32839464, 8287765, 2494298, 18462332, 5770930, 7953628 ####[facility] [address] [place] [address] Glucose [Mass/Vol] 126 mg/dL Normal 55-199 [facility] Comment on above: Result Comment: If t his glucose result represents a fasting glucose, interpretation should refer to the following reference range: 55-99 mg/dL Performed By: #### 2 122474, 36688291, 4078164, 2661462, 22499591, 1959516, 0519410 ####[facility] [address] [place] [address] Potassium [Moles/Vol] 3.8 mmol/L Normal 3.5-5.3 [facility] Comment on above: Performed By: #### 2 792935, 60544116, 5981299, 2223494, 10850773, 9008552, 3078972 ####[facility] [address] [place] [address] Sodium [Moles/Vol] 138 mmol/L Normal 135-145 [facility] Comment on above: Performed By: #### 2 769750, 46709342, 3359113, 2666789, 92284936, 1405330, 8556052 ####[address] [address] CBC w/ Auto Diffon Erythrocyte distribution width (RBC) [Ratio] 13.0 % Normal 10.9-14.2 [facility] Comment on above: Performed By: #### 2 735137, 40223173, 1777189, 8057404, 94648837, 3041939, 9315879 ####[place] [address] [place] [address] Hematocrit (Bld) [Volume fraction] 39.6 % Normal 34.0-46.0 [facility] Comment on above: Performed By: #### 2 809366, 40711057, 8531681, 9461552, 39822700, 8783770, 4546564 ####[facility] [address] [place] [address] Hemoglobin (Bld) [Mass/Vol] 13.8 g/dL Normal 12.0-16.0 [facility] Comment on above: Performed By: #### 2 437587, 75227324, 6266502, 1630246, 64312104, 6764443, 4534278 ####[place] [address] [place] [address] MCH (RBC) [Entitic mass] 30.3 pg Normal 27.0-34.0 [facility] Comment on above: Performed By: #### 2 321018, 32082641, 1078482, 2621007, 39796767, 7413110, 6876253 ####[facility] [address] [place] [address] MCHC (RBC) [Mass/Vol] 34.9 g/dL Normal 31.4-36.0 [facility] Comment on above: Performed By: #### 2 641976, 83289251, 8129105, 8499017, 55101028, 7345904, 4335061 ####[facility] [address] [place] [address] MCV (RBC) [Entitic vol] 87.0 fL Normal 80.0-100.0 [facility] Comment on above: Performed By: #### 2 556683, 70872325, 6963878, 2351951, 82674973, 3990334, 2481248 ####[facility] [address] [place] [address] Platelet mean volume (Bld) [Entitic vol] 7.1 fL Normal 6.4-10.8 [facility] Comment on above: Performed By: #### 2 095719, 82054306, 1992986, 4587279, 10466784, 3250819, 0530854 ####[facility] [address] [place] [address] Platelets (Bld) [#/Vol] 268.0 E9/L Normal 150.0-500. 0 [facility] Comment on above: Performed By: #### 2 888912, 59839696, 8445166, 3825281, 61439196, 1365562, 6793155 ####[facility] [address] [place] [address] RBC (Bld) [#/Vol] 4.6 E12/L Normal 4.3-5.9 [facility] Comment on above: Performed By: #### 2 189985, 80015876, 7527800, 6089772, 52851477, 8895964, 3719651 ####[facility] [address] [place] [address] WBC corrected for nucl RBC Auto (Bld) [#/Vol] 7.9 E9/L Normal 4.0-11.[address] [facility] Comment on above: Performed By: #### 2 448418, 10388856, 0491551, 3668957, 93669071, 6788721, 9656546 ####[facility] [address] [place] [address] CHEMISTRYOrdered By: SYSTEM SYSTEM on 10-19-2022 Albumin [...] 0.6 mg/dL Normal 0.5 - 1.3 mg/dL [facility] Remisol GFR/1.73 sq M.predicted among blacks MDRD (S/P/Bld) [Vol rate/Area] mL/min/1.73 m2 Normal >=59mL/min /1.73 m2 [facility] Chem S GFR/1.73 sq M.predicted among non-blacks MDRD (S/P/Bld) [Vol rate/Area] mL/min/1.73 m2 Normal >=59mL/min /1.73 m2 [facility] Chem S Globulin (S) [Mass/Vol] 3.6 g/dL Normal 1.4 - 4.0 gm/dL [facility] Remisol Glucose [Mass/Vol] 126 mg/dL Normal 55 - 199 mg/dL [facility] Remisol Lipase [Catalytic activity/Vol] 39 U/L Normal 13 - 58 unit/L [facility] Remisol Potassium [Moles/Vol] 3.8 mmol/L Normal 3.5 - 5.3 mmol/L [facility] Remisol Protein [Mass/Vol] 7.7 g/dL Normal 6.0 - 7.8 gm/dL [facility] Remisol Sodium [Moles/Vol] 138 mmol/L Normal 135 - 145 mmol/L [facility] Remisol Urea nitrogen [Mass/Vol] 19 mg/dL Normal 5 - 21 mg/dL [facility] Remisol Urea nitrogen/Creatinine [Mass ratio] 32 mg/mg High 10 - 20 [facility] Remisol CT Abdomen/Pelvis w/o Contra ston 10-19-2022 CT Abdomen/Pelvis w/o Contrast Normal [facility] Consent for Treatmenton 09-28 Consent for Treatment [id number]:12 7 Normal [facility] Discharge Instructionson Discharge Instructions [id number]:127 Normal [facility] ED Clinical Summaryon 2022 ED Clinical Summary Normal [facility] ED Patient Education Noteon 10-19-2022 ED Patient Education Note Normal [facility] ED Patient Summaryon 023 ED Patient Summary Normal [facility] HEMATOLOGYOrdered By: SYSTEM SYSTEM on 10-19-2022 Basophils/100 [...] 87.0 fL Normal 80.0 - 100.0 fL [facility] HemeAutoSS Platelet mean volume (Bld) [Entitic vol] 7.1 fL Normal 6.4 - 10.8 fL [facility] HemeAutoSS Platelets (Bld) [#/Vol] 268.0 E9/L Normal 150.0 - 500.0 E9/L [facility] HemeAutoSS RBC (Bld) [#/Vol] 4.6 E12/L Normal 4.3 - 5.9 E12/L [facility] HemeAutoSS WBC corrected for nucl RBC Auto (Bld) [#/Vol] 7.9 E9/L Normal 4.0 - 11.0 E9/L [facility] HemeAutoSS Hep Func Panelon 10-19-2022 Bilirubin.indirect [Mass or moles/Vol] UTC Abnormal 0.1-0.9 [facility] Comment on above: Result Comment: Resu lt verified by Discern Rule. Performed result UTC (Unable to Calculate) was sent as an Alpha code due the inability to calculate a valid numeric value. Performed By: #### 2 118267, 35486431, 7316671, 5291353, 03756285, 2757896, 1086819 ####[facility] [address] [place] [address] Albumin [Mass/Vol] 4.1 g/dL Normal 3.3-5.0 [facility] Comment on above: Performed By: #### 2 427070, 01196732, 9844244, 1939425, 43727173, 9263802, 3294515 ####[facility] [address] [place] [address] Albumin/Globulin (S) [Mass conc ratio] 1.1 Normal 1.1-2.2 [facility] Comment on above: Performed By: #### 2 562212, 02857650, 3844834, 8641950, 95582944, 6675042, 7822071 ####[facility] [address] [place] [address] ALP [Catalytic activity/Vol] 73 Int._Unit/L Normal 21-98 [facility] Comment on above: Performed By: #### 2 362426, 91343587, 1677549, 6246870, 07065591, 1715800, 8006385 ####[facility] [address] [place] [address] ALT No additional P-5'-P [Catalytic activity/Vol] 16 Int._Unit/L Normal 6-46 [facility] Comment on above: Performed By: #### 2 488498, 72774879, 2651877, 5855062, 62722615, 3285036, 9029586 ####[facility] [address] [place] [address] AST [Catalytic activity/Vol] 17 Int._Unit/L Normal 5-43 [facility] Comment on above: Performed By: #### 2 917594, 72998018, 2695986, 7518451, 42427843, 5482277, 5827910 ####[address] [address] Bilirubin [Mass/Vol] 0.5 mg/dL Normal 0.0-1.1 [facility] Comment on above: Performed By: #### 2 363615, 00405360, 5442671, 0483958, 41148591, 6740226, 2697038 ####[facility] [address] [place] [address] Bilirubin.direct [Mass/Vol] mg/dL Normal 0.1-0.4 [facility] Comment on above: Performed By: #### 2 908551, 63615085, 0276623, 9952876, 51424173, 4939700, 4178842 ####[facility] [address] [place] [address] Globulin (S) [Mass/Vol] 3.6 g/dL Normal 1.4-4.0 [facility] Comment on above: Performed By: #### 2 910278, 92007576, 3402785, 6344035, 08102110, 6251628, 2941151 ####[facility] [address] [place] [address] Protein [Mass/Vol] 7.7 g/dL Normal 6.0-7.8 [facility] Comment on above: Performed By: #### 2 257184, 66467232, 3437364, 1132425, 15243823, 2235611, 7943711 ####[facility] [address] [place] [address] Lipase Levelon 10-19-2022 Lipase [Catalytic activity/Vol] 39 U/L Normal 13-58 [facility] Comment on above: Performed By: #### 2 552158, 03844157, 2548454, 9065421, 23890707, 1372131, 0744875 ####[facility] [address] [place] [address] SEROLOGYOrdered By: Daisy gracia on 10-19-2022 Beta hCG Ql Negative (10/19/22 3:01 PM) Normal [facility] Man Sero UA With Cult Reflexon 2022 Bacteria LM Ql (Urine sed) 1+ /HPF Abnormal Trace [facility] Comment on above: Performed By: #### 1 2355136 ####[facility] [address] [place] [address] Bilirubin Ql (U) Negative Normal Negative [facility] Comment on above: Performed By: #### 1 9674424 ####[address] [address] Clarity (U) CLOUDY Abnormal Clear [facility] Comment on above: Performed By: #### 1 1345579 ####[facility] [address] [place] [address] Color (U) YELLOW Normal Yellow [facility] Comment on above: Performed By: #### 1 0441538 ####[address] [address] Epithelial cells.squamous LM.HPF (Urine sed) [#/Area] 5-8 Normal 0-2 [facility] Comment on above: Performed By: #### 1 0684454 ####[facility] [address] [place] [address] Glucose Test strip (U) [Mass/Vol] Negative Normal Negative [facility] Comment on above: Performed By: #### 1 5455327 ####[facility] [address] [place] [address] Hemoglobin Ql (U) 3+ Abnormal Negative [facility] Comment on above: Performed By: #### 1 4206263 ####[facility] [address] [place] [address] Ketones (U) [Mass/Vol] Negative Normal Negative [facility] Comment on above: Performed By: #### 1 3765094 ####[facility] [address] [place] [address] [place].plasma/[place] .RBC (Bld) [Mass ratio] >75 Abnormal 0-3 [facility] Comment on above: Performed By: #### 1 3199031 ####[address] [address] Nitrite Ql (U) Negative Normal Negative [facility] Comment on above: Performed By: #### 1 7751951 ####[address] [address] pH (U) 7.5 [pH] Invalid Interpretation Code 5.0-9.0 [facility] Comment on above: Performed By: #### 1 5956727 ####[facility] [address] [place] [address] Protein (U) [Mass/Vol] Negative Normal Negative [facility] Comment on above: Performed By: #### 1 6352724 ####[place] [address] [place] [address] Specific gravity (U) [Rel density] 1.020 Invalid Interpretation Code 1.005-1.03 0 [facility] Comment on above: Performed By: #### 1 6539809 ####[facility] [address] [place] [address] Type of Urine collection method Clean Catch Normal [facility] Comment on above: Performed By: #### 1 3371119 ####[facility] [address] [place] [address] Urobilinogen Qn (U) 0.2 {Diaz'U}/dL Normal 0.0-1.0 [facility] Comment on above: Performed By: #### 1 2634785 ####[facility] [address] [place] [address] WBC Auto Ql (U) TRACE Abnormal Negative [facility] Comment on above: Performed By: #### 1 0455477 ####[facility] [address] [place] [address] WBC LM.HPF (Urine sed) [#/Area] 0-5 Normal 0-5 [facility] Comment on above: Performed By: #### 1 1670475 ####[facility] [address] [place] [address] URINALYSISOrdered By: Daisy Camejo on 10-19-2022 Bacteria [...] PM) Normal Negative [facility] UA Auto SS [place].plasma/[place] .RBC (Bld) [Mass ratio] >75 /HPF Invalid Interpretation Code 0-3/HPF [facility] UA Auto SS Nitrite Ql (U) Negative (10/19/22 3:01 PM) Normal Negative [facility] UA Auto SS pH (U) 7.5 *NA* (10/19/22 3:01 PM) Invalid Interpretation Code 5.0 - 9.0 [facility] UA Auto SS Protein (U) [Mass/Vol] Negative (10/19/22 3:01 PM) Normal Negative [facility] UA Auto SS Specific gravity (U) [Rel density] 1.020 *NA* (10/19/22 3:01 PM) Invalid Interpretation Code 1.005 - 1.030 [facility] UA Auto SS UA Spec Desc Clean Catch (10/19/22 3:01 PM) Normal [facility] UA Auto SS Urobilinogen Qn (U) 0.3441609 {Diaz'U}/dL Normal 0.0 - 1.0 EU/dL FT UA Auto SS WBC Auto Ql (U) Trace *ABN* (10/19/22 3:01 PM) Invalid Interpretation Code Negative [facility] UA Auto SS WBC LM.HPF (Urine sed) [#/Area] 0-5 /HPF Normal 0-5/HPF [facility] UA Auto SS XR Chest Single Viewon 10-19 XR Chest Single View Normal [facility] eGFRon 10-19-2022 GFR/1.73 sq M.predicted among blacks MDRD (S/P/Bld) [Vol rate/Area] mL/min/{1.73_m2} Normal >=59 [facility] Comment on above: Order Comment: Order added by Discern Expert. Result Comment: eGFR is race adjusted. AA=. Performed By: #### 2 129812, 51522899, 2340507, 5900241, 79221571, 9021565, 9169458 ####[facility] [address] [place] [address] GFR/1.73 sq M.predicted among non-blacks MDRD (S/P/Bld) [Vol rate/Area] mL/min/{1.73_m2} Normal >=59 [facility] Comment on above: Order Comment: Order added by Discern Expert. 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 Kidney failure is indicated at less than 15 mL/min/1.73m2. Performed By: #### 2 912828, [id number], 9215326, 9903045, 35295239, 2958985, 0653008 ####[facility] [address] [place] [address] CT KIDNEY STONEon 10-16-2022 CT KIDNEY STONE [...] ThuOct 16, 2022 2:54:14 AM EDT Normal [facility] Comment on above: Order Comment: Injur y/Trauma or Illness?:Illness/Other How long have you had these symptoms (acute/chronic)?:Acute Reason for exam?:Flank pain, kidney stone suspected Type of Exam?:Initial Additional signs and symptoms?: Coding Summary.on 10-10-2022 Coding Summary. Normal [facility] Discharge Instructionson Discharge Instructions [id number]:1 27 Normal [facility] ED Clinical Summaryon 2022 ED Clinical Summary Normal [facility] ED Note-Physicianon 10-11-19 23 ED Note-Physician Normal [facility] Comment on above: Result Comment: Elec tronically Signed By: Vivek BENJAMIN, Debbie\.br\Date and Time Signed: 10/09/22 23:10 EDT ED Patient Education Noteon 10-10-2022 ED Patient Education Note Normal [facility] ED Patient Summaryon 023 ED Patient Summary Normal [facility] US Renalon 10-10-2022 US Renal Normal [facility] Consent for Treatmenton 09-27 Consent for Treatment [id number]:12 7 Normal [facility] SEROLOGYOrdered By: Linda edwards on 10-09-2022 HCG.beta subunit (U) [Moles/Vol] Negative Normal [facility] Man Sero U BetaHcg Qualon 10-09-2022 HCG.beta subunit (U) [Moles/Vol] Negative Normal [facility] Comment on above: Performed By: #### 1 [id number], [id number] ####[facility] [address] [place] [address] UA With Cult Reflexon 2022 Bacteria LM Ql (Urine sed) TRACE Normal Trace [facility] Comment on above: Performed By: #### 1 2710052, [id number] ####[facility] [address] [place] [address] Epithelial cells.squamous LM.HPF (Urine sed) [#/Area] 3-4 Normal 0-2 [facility] Comment on above: Performed By: #### 1 1686053, 55596706 ####[address] [address] [place].plasma/[place] .RBC (Bld) [Mass ratio] >75 Abnormal 0-3 [facility] Comment on above: Performed By: #### 1 1073369, 13785598 ####[address] [address] WBC LM.HPF (Urine sed) [#/Area] 0-5 Normal 0-5 [facility] Comment on above: Performed By: #### 1 6199638, 35759218 ####[facility] [address] [place] [address] Bilirubin Ql (U) Negative Normal Negative [facility] Comment on above: Performed By: #### 1 6141872, 00791386 ####[address] [address] Clarity (U) SL CLOUDY Abnormal Clear [facility] Comment on above: Performed By: #### 1 7059664, [id number] ####[address] [address] Color (U) RED Abnormal Yellow [facility] Comment on above: Performed By: #### 1 1444582, 32574269 ####[facility] [address] [place] [address] Glucose Test strip (U) [Mass/Vol] 3+ Abnormal Negative [facility] Comment on above: Performed By: #### 1 4180290, 54702929 ####[facility] [address] [place] [address] Hemoglobin Ql (U) 3+ Abnormal Negative [facility] Comment on above: Performed By: #### 1 6428661, 04890368 ####[facility] [address] [place] [address] Ketones (U) [Mass/Vol] Negative Normal Negative [facility] Comment on above: Performed By: #### 1 7063381, 36151763 ####[facility] [address] [place] [address] Nitrite Ql (U) Negative Normal Negative [facility] Comment on above: Performed By: #### 1 1376631, 76862846 ####[address] [address] pH (U) 5.5 [pH] Invalid Interpretation Code 5.0-9.0 [facility] Comment on above: Performed By: #### 1 4070746, 46684057 ####[address] [address] Protein (U) [Mass/Vol] Negative Normal Negative [facility] Comment on above: Performed By: #### 1 9814691, 39871966 ####[address] [address] Specific gravity (U) [Rel density] 1.015 Invalid Interpretation Code 1.005-1.03 0 [facility] Comment on above: Performed By: #### 1 6265330, 39450978 ####[address] [address] Type of Urine collection method Clean Catch Normal [facility] Comment on above: Performed By: #### 1 1926004, 83786414 ####[address] [address] Urobilinogen Qn (U) 0.2 {Diaz'U}/dL Normal 0.0-1.0 [facility] Comment on above: Performed By: #### 1 3520591, 59879055 ####[facility] [address] [place] [address] WBC Auto Ql (U) TRACE Abnormal Negative [facility] Comment on above: Performed By: #### 1 7236876, 69509634 ####[facility] [address] [place] [address] URINALYSISOrdered By: Linda Montilla on 10-09-2022 Bacteria [...] [Mass/Vol] Negative (10/09/22 8:06 PM) Normal Negative [facility] UA Auto SS [place].plasma/[place] .RBC (Bld) [Mass ratio] >75 /HPF Invalid Interpretation Code 0-3/HPF [facility] UA Auto SS Nitrite Ql (U) Negative (10/09/22 8:06 PM) Normal Negative [facility] UA Auto SS pH (U) 5.5 *NA* (10/09/22 8:06 PM) Invalid Interpretation Code 5.0 - 9.0 [facility] UA Auto SS Protein (U) [Mass/Vol] Negative (10/09/22 8:06 PM) Normal Negative [facility] UA Auto SS Specific gravity (U) [Rel density] 1.015 *NA* (10/09/22 8:06 PM) Invalid Interpretation Code 1.005 - 1.030 [facility] UA Auto SS UA Spec Desc Clean Catch (10/09/22 8:06 PM) Normal [facility] UA Auto SS Urobilinogen Qn (U) 0.5185463 {Diaz'U}/dL Normal 0.0 - 1.0 EU/dL [facility] UA Auto SS WBC Auto Ql (U) Trace *ABN* (10/09/22 8:06 PM) Invalid Interpretation Code Negative [facility] UA Auto SS WBC LM.HPF (Urine sed) [#/Area] 0-5 /HPF Normal 0-5/HPF [facility] UA Auto SS Coding Summary.on 09-25-2022 Coding Summary. Normal [facility] Auto Diffon 09-22-2022 Basophils/100 WBC (Bld) 1.0 % Normal 0.0-2.0 [facility] Comment on above: Order Comment: Order Added by Discern Expert. Performed By: #### 2 995827, 46516930, 9827472, 3267580 ####[facility] [address] [place] [address] Basophils/Leukocytes Auto (Bld) [Pure # fraction] 0.1 E9/L Normal 0.0-0.2 [facility] Comment on above: Order Comment: Order Added by Discern Expert. Performed By: #### 2 953940, 40185645, 5722485, 9585795 ####[facility] [address] [place] [address] Eosinophils/100 WBC (Bld) 8.3 % High 0.0-8.0 [facility] Comment on above: Order Comment: Order Added by Discern Expert. Performed By: #### 2 447635, 24237000, 7890680, 2246073 ####[facility] [address] [place] [address] Eosinophils/Leukocytes Auto (Bld) [Pure # fraction] 0.7 E9/L High 0.0-0.5 [facility] Comment on above: Order Comment: Order Added by Discern Expert. Performed By: #### 2 251446, 22580738, 8847386, 9163791 ####[facility] [address] [place] [address] Lymphocytes/100 WBC (Bld) 24.9 % Normal 14.0-50.0 [facility] Comment on above: Order Comment: Order Added by Discern Expert. Performed By: #### 2 335134, 99393973, 6037857, 4443288 ####[place] [address] [place] [address] Lymphocytes/Leukocytes Auto (Bld) [Pure # fraction] 2.1 E9/L Normal 1.0-4.0 [facility] Comment on above: Order Comment: Order Added by Discern Expert. Performed By: #### 2 113733, 39773218, 5662694, 7807950 ####[address] [address] Monocytes/100 WBC (Bld) 7.4 % Normal 4.0-14.0 [facility] Comment on above: Order Comment: Order Added by Ariel Expert. Performed By: #### 2 860231, 21850896, 6300728, 4486769 ####[address] [address] Monocytes/Leukocytes Auto (Bld) [Pure # fraction] 0.6 E9/L Normal 0.2-1.0 [facility] Comment on above: Order Comment: Order Added by Ariel Expert. Performed By: #### 2 935824, 65649169, 5762020, 1352673 ####[address] [address] Neutrophils/100 WBC (Bld) 58.4 % Normal 36.0-75.0 [facility] Comment on above: Order Comment: Order Added by Discern Expert. Performed By: #### 2 012460, 97345893, 1942235, 0898048 ####[address] [address] Neutrophils/Leukocytes Auto (Bld) [Pure # fraction] 4.8 E9/L Normal 2.0-7.5 [facility] Comment on above: Order Comment: Order Added by Discern Expert. Performed By: #### 2 031763, 96438659, 8270369, 0585479 ####[facility] [address] [place] [address] BMPon 09-22-2022 Creatinine [Mass/Vol] 0.6 mg/dL Normal 0.5-1.3 [facility] Comment on above: Performed By: #### 2 828503, 29723728, 9517419, 1879165 ####[facility] [address] [place] [address] Urea nitrogen [Mass/Vol] 20 mg/dL Normal 5-21 [facility] Comment on above: Performed By: #### 2 640256, 11397010, 7174106, 2030511 ####[facility] [address] [address] Urea nitrogen/Creatinine [Mass ratio] 33 No Units High 10-20 [facility] Comment on above: Performed By: #### 2 392382, 54663424, 2375299, 7469693 ####[facility] [address] [place] [address] Anion gap [Moles/Vol] 13 mmol/L Normal 6-16 [facility] Comment on above: Performed By: #### 2 398362, 20796641, 7222512, 1055066 ####[facility] [address] [place] [address] Calcium [Mass/Vol] 9.3 mg/dL Normal 8.9-11.1 [facility] Comment on above: Performed By: #### 2 793564, 54102243, 9124016, 5261746 ####[facility] [address] [address] Chloride [Moles/Vol] 102 mmol/L Normal 101-111 [facility] Comment on above: Performed By: #### 2 626995, 22774159, 0744206, 4586459 ####[facility] [address] [place] [address] CO2 [Moles/Vol] 27 mmol/L Normal 21-[address] [facility] Comment on above: Performed By: #### 2 309480, 82840601, 6322014, 2309398 ####[facility] [address] [place] [address] Glucose [Mass/Vol] 180 mg/dL Normal 55-199 [facility] Comment on above: Result Comment: If t his glucose result represents a fasting glucose, interpretation should refer to the following reference range: 55-99 mg/dL Performed By: #### 2 885064, 56982119, 5758565, 4654795 ####[facility] [address] [place] [address] Potassium [Moles/Vol] 3.7 mmol/L Normal 3.5-5.3 [facility] Comment on above: Performed By: #### 2 472822, 73756718, 2399411, 3453957 ####[facility] [address] [place] [address] Sodium [Moles/Vol] 138 mmol/L Normal 135-145 [facility] Comment on above: Performed By: #### 2 303903, 87832269, 4514664, 7560910 ####[facility] [address] [place] [address] CBC w/ Auto Diffon Erythrocyte distribution width (RBC) [Ratio] 13.4 % Normal 10.9-14.2 [facility] Comment on above: Performed By: #### 2 222828, 18044483, 7735178, 9408460 ####[facility] [address] [place] [address] Hematocrit (Bld) [Volume fraction] 39.9 % Normal 34.0-46.0 [facility] Comment on above: Performed By: #### 2 694689, 75164638, 1312442, 6400984 ####[facility] [address] [place] [address] Hemoglobin (Bld) [Mass/Vol] 13.6 g/dL Normal 12.0-16.0 [facility] Comment on above: Performed By: #### 2 360796, 47545817, 3219275, 7232992 ####[place] [address] MCH (RBC) [Entitic mass] 29.9 pg Normal 27.0-34.0 [facility] Comment on above: Performed By: #### 2 523448, 48943486, 6021028, 0179245 ####[place] [address] MCHC (RBC) [Mass/Vol] 34.0 g/dL Normal 31.4-36.0 [facility] Comment on above: Performed By: #### 2 987846, 98909070, 9793785, 1576705 ####[place] [address] MCV (RBC) [Entitic vol] 87.8 fL Normal 80.0-100.0 [facility] Comment on above: Performed By: #### 2 277411, 06838241, 3595261, 6585484 ####[place] [address] Platelet mean volume (Bld) [Entitic vol] 7.3 fL Normal 6.4-10.8 [facility] Comment on above: Performed By: #### 2 747735, 75448678, 0523377, 6567226 ####[place] [address] Platelets (Bld) [#/Vol] 263.0 E9/L Normal 150.0-500. 0 [facility] Comment on above: Performed By: #### 2 304897, 95276548, 7715802, 6763054 ####[place] [address] RBC (Bld) [#/Vol] 4.6 E12/L Normal 4.3-5.9 [facility] Comment on above: Performed By: #### 2 538029, 67277534, 1614872, 2574886 ####[facility] [address] [place] [address] WBC corrected for nucl RBC Auto (Bld) [#/Vol] 8.3 E9/L Normal 4.0-11.[address] [facility] Comment on above: Performed By: #### 2 764167, 41374229, 4754093, 4579831 ####[facility] [address] [place] [address] CHEMISTRYOrdered By: SYSTEM SYSTEM on 09-22-2022 Anion gap [Moles/Vol] 13 mmol/L Normal 6 - 16 mEq/L [facility] Calcium [Mass/Vol] 9.3 mg/dL Normal 8.9 - 11. 1 mg/dL [facility] Remisol Chloride [Moles/Vol] 102 mmol/L Normal 101 - 1 11 mmol/L [facility] Remisol CO2 [Moles/Vol] 27 mmol/L Normal 21 - 31 mmol/L [facility] Creatinine [Mass/Vol] 0.6 mg/dL Normal 0.5 - 1.3 mg/dL [facility] GFR/1.73 sq M.predicted among blacks MDRD (S/P/Bld) [Vol rate/Area] mL/min/1.73 m2 Normal >=59mL/min /1.73 m2 [facility] Chem S GFR/1.73 sq M.predicted among non-blacks MDRD (S/P/Bld) [Vol rate/Area] mL/min/1.73 m2 Normal >=59mL/min /1.73 m2 [facility] Chem S Glucose [Mass/Vol] 180 mg/dL Normal 55 - 199 mg/dL [facility] Potassium [Moles/Vol] 3.7 mmol/L Normal 3.5 - 5.3 mmol/L [facility] Remisol Sodium [Moles/Vol] 138 mmol/L Normal 135 - 145 mmol/L [facility] Remisol Urea nitrogen [Mass/Vol] 20 mg/dL Normal 5 - 21 mg/dL [facility] Urea nitrogen/Creatinine [Mass ratio] 33 mg/mg High 10 - 20 [facility] Remisol Consent for Treatmenton 08-28 Consent for Treatment [id number]:12 7 Normal [facility] Discharge Instructionson Discharge Instructions [id number]:1 27 Normal [facility] ED Clinical Summaryon 2022 ED Clinical Summary Normal [facility] ED Note-Nursingon 09-22-2022 ED Note-Nursing 0015: time patient brought in the room Normal [facility] ED Note-Physicianon 09-23-19 ED Note-Physician Normal [facility] Comment on above: Result Comment: Elec tronically Signed By: Sybil Muhammad DO\Sorinbr\Date and Time Signed: 09/22/22 02:09 EDT ED Patient Education Noteon 09-22-2022 ED Patient Education Note Normal [facility] ED Patient Summaryon 023 ED Patient Summary Normal [facility] HEMATOLOGYOrdered By: SYSTEM SYSTEM on 09-22-2022 Basophils/100 [...] 13.4 % Normal 10.9 - 14.2 % FT HemeAutoSS Hematocrit (Bld) [Volume fraction] 39.9 % Normal 34.0 - 46.0 % [facility] HemeAutoSS Hemoglobin (Bld) [Mass/Vol] 13.6 g/dL Normal 12.0 - 16.0 gm/dL [facility] HemeAutoSS MCH (RBC) [Entitic mass] 29.9 pg Normal 27.0 - 34.0 pg [facility] HemeAutoSS MCHC (RBC) [Mass/Vol] 34.0 g/dL Normal 31.4 - 36.0 gm/dL [facility] HemeAutoSS MCV (RBC) [Entitic vol] 87.8 fL Normal 80.0 - 100.0 fL [facility] HemeAutoSS Platelet mean volume (Bld) [Entitic vol] 7.3 fL Normal 6.4 - 10.8 fL [facility] HemeAutoSS Platelets (Bld) [#/Vol] 263.0 E9/L Normal 150.0 - 500.0 E9/L [facility] HemeAutoSS RBC (Bld) [#/Vol] 4.6 E12/L Normal 4.3 - 5.9 E12/L [facility] HemeAutoSS WBC corrected for nucl RBC Auto (Bld) [#/Vol] 8.3 E9/L Normal 4.0 - 11.0 E9/L [facility] HemeAutoSS UA With Cult Reflexon 2022 Bilirubin Ql (U) Negative Normal Negative [facility] Comment on above: Performed By: #### 1 7451197 ####[facility] [address] [place] [address] Clarity (U) CLOUDY Abnormal Clear [facility] Comment on above: Performed By: #### 1 3480027 ####[facility] [address] [place] [address] Color (U) YELLOW Normal Yellow [facility] Comment on above: Performed By: #### 1 1683276 ####[facility] [address] [place] [address] Epithelial cells.squamous LM.HPF (Urine sed) [#/Area] 0-2 Normal 0-2 [facility] Comment on above: Performed By: #### 1 1558080 ####[facility] [address] [place] [address] Glucose Test strip (U) [Mass/Vol] Negative Normal Negative [facility] Comment on above: Performed By: #### 1 5937104 ####[facility] [address] [place] [address] Hemoglobin Ql (U) 3+ Abnormal Negative [facility] Comment on above: Performed By: #### 1 6344514 ####[address] [address] Ketones (U) [Mass/Vol] TRACE Abnormal Negative [facility] Comment on above: Performed By: #### 1 5104586 ####[facility] [address] [place] [address] [place].plasma/[place] .RBC (Bld) [Mass ratio] >75 Abnormal 0-3 [facility] Comment on above: Performed By: #### 1 4425022 ####[facility] [address] [place] [address] Mucus Ql (Urine sed) TRACE Normal [facility] Comment on above: Performed By: #### 1 0601155 ####[facility] [address] [place] [address] Nitrite Ql (U) Negative Normal Negative [facility] Comment on above: Performed By: #### 1 5472933 ####[address] [address] pH (U) 6.0 [pH] Invalid Interpretation Code 5.0-9.0 [facility] Comment on above: Performed By: #### 1 1541766 ####[address] [address] Protein (U) [Mass/Vol] TRACE Abnormal Negative Fi [facility] Comment on above: Performed By: #### 1 9723410 ####[facility] [address] [place] [address] Specific gravity (U) [Rel density] >=1.030 Invalid Interpretation Code 1.005-1.03 0 [facility] Comment on above: Performed By: #### 1 4437884 ####[facility] [address] [place] [address] Type of Urine collection method Clean Catch Normal [facility] Comment on above: Performed By: #### 1 0905582 ####[facility] [address] [place] [address] Urobilinogen Qn (U) 1.0 {Diaz'U}/dL Normal 0.0-1.0 [facility] Comment on above: Performed By: #### 1 2074952 ####[facility] [address] [place] [address] WBC Auto Ql (U) TRACE Abnormal Negative [facility] Comment on above: Performed By: #### 1 7388071 ####[facility] [address] [place] [address] WBC casts LM.LPF (Urine sed) [#/Area] 0-3 Normal [facility] Comment on above: Performed By: #### 1 5790050 ####[facility] [address] [place] [address] WBC LM.HPF (Urine sed) [#/Area] 0-5 Normal 0-5 [facility] Comment on above: Performed By: #### 1 6884505 ####[place] [place] [address] XR Abdomen 1 Viewon 09-23-19 XR Abdomen 1 View Normal [facility] eGFRon 09-22-2022 GFR/1.73 sq M.predicted among blacks MDRD (S/P/Bld) [Vol rate/Area] mL/min/{1.73_m2} Normal >=59 [facility] Comment on above: Order Comment: Order added by Discern Expert. Result Comment: eGFR is race adjusted. AA=. Performed By: #### 2 082389, 07349377, 7368107, 3625139 ####[facility] [address] [place] [address] GFR/1.73 sq M.predicted among non-blacks MDRD (S/P/Bld) [Vol rate/Area] mL/min/{1.73_m2} Normal >=59 [facility] Comment on above: Order Comment: Order added by Discern Expert. 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 Kidney failure is indicated at less than 15 mL/min/1.73m2. Performed By: #### 2 260247, 39652174, 6433792, 6401656 ####[facility] [address] [place] [address] Automated erythrocytes count in urine sediment (number/area)Ordered By: Harry Sprague on 09-21-2022 RBC Auto (Urine sed) [#/Area] Innumerable [HPF] 0-4 [facility] Automated leukocytes count i n urine sediment (number/area)Ordered By: Harry Sprague on 09-21-2022 WBC Auto (Urine sed) [#/Area] 5-9 [HPF] 0-4 [facility] Bilirubin Test strip Ql (U)O rdered By: Harry Sprague on 09-21-2022 Bilirubin Ql (U) Negative Negative [facility] Color Auto (U)Ordered By: Nhi Sprague on 09-21-2022 Color (U) Yellow Yellow [facility] Dipstick and Microscopicon 0 09-21-2022 Appearance (U) Clear Normal Clear [facility] Comment on above: Order Comment: Name Collection Type:: Clean-Voided Midstream Performed By: #### A ANGEL BERNARD ####[facility] [address] [place] [address] [facility] Bacteria,Urine None Seen Normal None Seen [facility] Comment on above: Order Comment: Name Collection Type:: Clean-Voided Midstream Performed By: #### A ANGEL BERNARD ####[facility] [place] [address] [facility] Bilirubin,Urine Negative Normal Negative [facility] [facility] Comment on above: Order Comment: Name Collection Type:: Clean-Voided Midstream Performed By: #### A DDONUAPLUS, CUU ####[address] [place] [address] [facility] Color (U) Yellow Normal Yellow [facility] Comment on above: Order Comment: Name Collection Type:: Clean-Voided Midstream Performed By: #### A DDONUAPLUS, CUU ####[address] [address] [facility] Glucose Ql (U) Normal Normal Normal [facility] Comment on above: Order Comment: Name Collection Type:: Clean-Voided Midstream Performed By: #### A DDONUAPLUS, CUU ####[address] [address] [facility] Hyaline Casts,Urine 0-8 Normal 0-8 [facility] Comment on above: Order Comment: Name Collection Type:: Clean-Voided Midstream Result Comment: PERF ORMED BY:[address] [place], [place] [id number] MEDICAL RONAN MIKE M.D. Performed By: #### A DDONUAPLUS, CUU ####[address] [address] [facility] Ketones Ql (U) Trace High Negative [facility] Comment on above: Order Comment: Name Collection Type:: Clean-Voided Midstream Performed By: #### A DDONUAPLUS, CUU ####[address] [address] [facility] Leukocyte esterase Test strip Ql (U) 2+ High Negative [facility] Comment on above: Order Comment: Name Collection Type:: Clean-Voided Midstream Performed By: #### A DDONUAPLUS, CUU ####[address] [address] [facility] Nitrite,Urine Negative Normal Negative [facility] Comment on above: Order Comment: Name Collection Type:: Clean-Voided Midstream Performed By: #### A DDONUAPLUS, CUU ####[address] [address] [facility] Occult Blood,Urine 3+ High Negative [facility] Comment on above: Order Comment: Name Collection Type:: Clean-Voided Midstream Result Comment: PERF ORMED BY:[address] [place], [place] [id number] MEDICAL DIRECTORNATALIA MIKE M.D. Performed By: #### A DDONUAPLUS, CUU ####[address] [address] [facility] pH (U) 5.5 [pH] Normal 5.0-9.0 [facility] Comment on above: Order Comment: Name Collection Type:: Clean-Voided Midstream Performed By: #### A DDONUAPLUS, CUU ####[address] [address] [facility] Protein,Urine Trace High Negative [facility] Comment on above: Order Comment: Name Collection Type:: Clean-Voided Midstream Performed By: #### A DDONUAPLUS, CUU ####[address] [address] [facility] RBC,Urine Innumerable High 0-4 [facility] Comment on above: Order Comment: Name Collection Type:: Clean-Voided Midstream Performed By: #### A DDONUAPLUS, CUU ####[address] [address] [facility] Specificy Dent,Urine 1.039 High 1.001-1.03 0 [facility] Comment on above: Order Comment: Name Collection Type:: Clean-Voided Midstream Performed By: #### A DDONUAPLUS, CUU ####[address] [address] [facility] Squamous Epithelial Cell,Urine 3-4 High 0-2 [facility] Comment on above: Order Comment: Name Collection Type:: Clean-Voided Midstream Performed By: #### A DDONUAPLUS, CUU ####[facility] Phu[address] Urobilinogen,Urine Normal Normal Normal [facility] Comment on above: Order Comment: Name Collection Type:: Clean-Voided Midstream Performed By: #### A DDONUAPLUS, CUU ####[facility] Ola[address] WBC,Urine 5-9 High 0-4 [facility] Comment on above: Order Comment: Name Collection Type:: Clean-Voided Midstream Performed By: #### A DDONUAPLUS, CUU ####[facility] Ketones Auto test strip (U) [Mass/Vol]Ordered By: Harry Sprague on 09-21-2022 Ketones (U) [Mass/Vol] Trace Negative [facility] Laboratory - UrinalysisOrder ed By: Harry Sprague on 09-21-2022 Hyaline casts LM Ql (Urine sed) 0-8 [LPF] 0-8 [facility] Nitrite Test strip Ql (U)Ord ered By: Harry Sprague on 09-21-2022 Nitrite Ql (U) Negative Negative [facility] Protein Auto test strip (U) [Mass/Vol]Ordered By: Harry Sprague on 09-21-2022 Protein (U) [Mass/Vol] Trace mg/dL Negative [facility] Specific gravity Auto test s trip (U) [Rel density]Ordered By: Harry Sprague on 09-21-2022 Specific gravity (U) [Rel density] 1.039 1.001-1.03 0 [facility] Squamous epithelial cells de tection in urine sediment by light microscopyOrdered By: Harry Sprague on 09-21-2022 Epithelial cells.squamous LM Ql (Urine sed) 3-4 [HPF] 0-2 [facility] URINALYSISOrdered By: Clau Muñoz on 09-21-2022 Bilirubin Ql (U) Negative (09/21/22 11:09 PM) Normal Negative [facility] UA Auto SS Clarity (U) Cloudy *ABN* [...] Interpretation Code Negative [facility] UA Auto SS [place].plasma/[place] .RBC (Bld) [Mass ratio] >75 /HPF Invalid [...] Desc Clean Catch (09/21/22 11:09 PM) Normal [facility] UA Auto SS Urobilinogen Qn (U) 1.9790073 {Diaz'U}/dL Normal 0.0 - 1.0 EU/dL [facility] UA Auto SS WBC Auto Ql (U) Trace *ABN* (09/21/22 11:09 PM) Invalid Interpretation Code Negative [facility] UA Auto SS WBC casts LM.LPF (Urine sed) [#/Area] 0-3 (09/21/22 11:09 PM) Normal [facility] UA Auto SS WBC LM.HPF (Urine sed) [#/Area] 0-5 /HPF Normal 0-5/HPF [facility] UA Auto SS Urine Cultureon 09-21-2022 Bacteria identified Cx Nom (U) No Growth 2 Days PERFORMED BY: [facility] [address] [place] [id number] PATHOLOGIST UNDERWRITING SALES REPRESENTATIVE NATALIA MIKE M.D. Normal [facility] Comment on above: Performed By: #### A DDONUAPLUS, CUU ####[facility] [id number] [facility] Urine bacteria detection by automated methodOrdered By: Harry Sprague on 09-21-2022 Bacteria Auto Ql (U) None seen None Seen [facility] Urine clarity by refractomet ry automatedOrdered By: Harry Sprague on 09-21-2022 Clarity Refractometry automated (U) Clear Clear [facility] Urine culture routineOrdered By: Harry Sprague on 09-21-2022 Bacteria identified Cx Nom (U) No Growth 2 Days [facility] Urine glucose measurement by automated test strip (mass/volume)Ordered By: Harry Sprague on 09-21-2022 Glucose Auto test strip (U) [Mass/Vol] Normal mg/dL Normal [facility] Urine hemoglobin detection b y automated test stripOrdered By: Harry Sprague on 09-21-2022 Hemoglobin Auto test strip Ql (U) 3+ Negative [facility] Urine leukocyte esterase det ection by automated test stripOrdered By: Harry Sprague on 09-21-2022 Leukocyte esterase Auto test strip Ql (U) 2+ Negative [facility] Urobilinogen Auto test strip (U) [Mass/Vol]Ordered By: Harry Sprague on 09-21-2022 Urobilinogen (U) [Mass/Vol] Normal mg/dL Normal [facility] pH Auto test strip (U)Ordere d By: Harry Sprague on 09-21-2022 pH (U) 5.5 [pH] 5.0-9.0 [facility] CBC W Auto Differential pane l (Bld)on 09-17-2022 Basophils (Bld) [#/Vol] 0.1 10*3/uL 0.0 - 0.2 K/uL [facility] Basophils/100 WBC (Bld) 1.0 % [facility] Eosinophils (Bld) [#/Vol] 0.9 10*3/uL High 0.0 - 0.7 K/uL [facility] Eosinophils/100 WBC (Bld) 7.1 % [facility] Erythrocyte distribution width (RBC) [Ratio] 13.1 % 11.5 - 14.5 % [facility] Hematocrit (Bld) [Volume fraction] 42.4 % 37.0 - 47.0 % [facility] Hemoglobin (Bld) [Mass/Vol] 14.7 g/dL 12.0 - 16.0 g/dL [facility] Interpretation and review of laboratory results Abnormal [facility] Lymphocytes (Bld) [#/Vol] 3.5 10*3/uL 1.0 - 4.8 K/uL [facility] Lymphocytes/100 WBC (Bld) 26.8 % [facility] MCH (RBC) [Entitic mass] 31.0 pg 27.0 - 31.3 pg [facility] MCHC (RBC) [Mass/Vol] 34.6 % 33.0 - 37.0 % [facility] MCV (RBC) [Entitic vol] 89.6 fL 79.4 - 94.8 fL [facility] Monocytes (Bld) [#/Vol] 0.9 10*3/uL High 0.2 - 0.8 K/uL [facility] Monocytes/100 WBC (Bld) 7.1 % [facility] Neutrophils (Bld) [#/Vol] 7.7 10*3/uL High 1.4 - 6.5 K/uL [facility] Platelets (Bld) [#/Vol] 276 10*3/uL 130 - 400 K/uL [facility] RBC (Bld) [#/Vol] 4.73 10*6/uL [facility] Segmented neutrophils/100 WBC (Bld) 58.0 % [facility] WBC (Bld) [#/Vol] 13.2 10*3/uL High 4.8 - 10.8 K/uL [facility] CBC With Platelet and Differ entialon 09-17-2022 Basophils (Bld) [#/Vol] 0.1 10*3/uL Normal 0.0-0.2 [facility] Comment on above: Performed By: #### P GLU #### [facility] [address] [place] [address] Basophils/100 WBC (Bld) 1.0 % Normal [facility] Comment on above: Performed By: #### P GLU #### [facility] [address] [place] [address] Eosinophils (Bld) [#/Vol] 0.9 10*3/uL Critically high 0.0-0.7 [facility] Comment on above: Performed By: #### P GLU #### [facility] [address] [place] [address] Eosinophils/100 WBC (Bld) 7.1 % Normal [facility] Comment on above: Performed By: #### P GLU #### [facility] [address] [place] [address] Erythrocyte distribution width (RBC) [Ratio] 13.1 % Normal 11.5-14.5 [facility] Comment on above: Performed By: #### P GLU #### [facility] [address] [place] [address] Hematocrit (Bld) [Volume fraction] 42.4 % Normal 37.0-47.0 [facility] Comment on above: Performed By: #### P GLU #### [facility] [address] [place] [address] Hemoglobin (Bld) [Mass/Vol] 14.7 g/dL Normal 12.0-16.0 [facility] Comment on above: Performed By: #### P GLU #### [facility] [address] [place] [address] Lymphocytes (Bld) [#/Vol] 3.5 10*3/uL Normal 1.0-4.8 [facility] Comment on above: Performed By: #### P GLU #### [facility] [address] [place] [address] Lymphocytes/100 WBC (Bld) 26.8 % Normal [facility] Comment on above: Performed By: #### P GLU #### [facility] [address] [place] [address] MCH (RBC) [Entitic mass] 31.0 pg Normal 27.0-31.3 [facility] Comment on above: Performed By: #### P GLU #### [facility] [address] [place] [address] MCHC 34.6 % Normal 33.0-37.0 [facility] Comment on above: Performed By: #### P GLU #### [facility] [address] [place] [address] MCV (RBC) [Entitic vol] 89.6 fL Normal 79.4-94.8 [facility] Comment on above: Performed By: #### P GLU #### [facility] [address] [place] [address] Monocytes (Bld) [#/Vol] 0.9 10*3/uL Critically high 0.2-0.8 [facility] Comment on above: Performed By: #### P GLU #### [facility] [address] [place] [address] Monocytes/100 WBC (Bld) 7.1 % Normal [facility] Comment on above: Performed By: #### P GLU #### [facility] [address] [place] [address] Neutrophils (Bld) [#/Vol] 7.7 10*3/uL Critically high 1.4-6.5 [facility] Comment on above: Performed By: #### P GLU #### [facility] [address] [place] [address] Neutrophils/100 WBC (Bld) 58.0 % Normal [facility] Comment on above: Performed By: #### P GLU #### [facility] [address] [place] [address] Platelets (Bld) [#/Vol] 276 10*3/uL Normal 130-400 [facility] Comment on above: Performed By: #### P GLU #### [facility] [address] [place] [address] RBC (Bld) [#/Vol] 4.73 10*6/uL Normal 4.20-5.40 [facility] Comment on above: Performed By: #### P GLU #### [facility] [address] [place] [address] WBC (Bld) [#/Vol] 13.2 10*3/uL Critically high 4.8-10.8 [facility] Comment on above: Performed By: #### P GLU #### [facility] [address] [place] [address] Comprehensive Metabolic Pane loco 09-17-2022 Albumin [Mass/Vol] 4.7 g/dL Critically high 3.5-4.6 M [facility] Comment on above: Performed By: #### U AR #### [facility] [address] [place] [address] ALP [Catalytic activity/Vol] 93 U/L Normal 40-130 [facility] Comment on above: Performed By: #### U AR #### [facility] [address] [place] [address] ALT [Catalytic activity/Vol] 14 U/L Normal 0-33 [facility] Comment on above: Performed By: #### U AR #### [facility] [address] [place] [address] Anion gap [Moles/Vol] 14 mmol/L Normal 9-15 [facility] Comment on above: Performed By: #### U AR #### [facility] [address] [place] [address] AST [Catalytic activity/Vol] 17 U/L Normal 0-35 [facility] Comment on above: Performed By: #### U AR #### [facility] [address] [place] [address] Bilirubin [Mass/Vol] 0.5 mg/dL Normal 0.2-0.7 [facility] Comment on above: Performed By: #### U AR #### [facility] [address] [place] [address] Calcium [Mass/Vol] 10.1 mg/dL Critically high 8.5-9.9 M [facility] Comment on above: Performed By: #### U AR #### [facility] [address] [place] [address] Chloride [Moles/Vol] 103 mmol/L Normal 95-107 [facility] Comment on above: Performed By: #### U AR #### [facility] [address] [place] [address] CO2 [Moles/Vol] 21 mmol/L Normal 20-31 [facility] Comment on above: Performed By: #### U AR #### [facility] [address] [place] [address] Creatinine [Mass/Vol] 0.73 mg/dL Normal 0.50-0.90 [facility] Comment on above: Performed By: #### U AR #### [facility] [address] [place] [address] GFR >60.0 Normal >60 [facility] Comment on above: Result Comment: Carlene atric [...] secretion. Performed By: #### U AR #### [facility] [address] [place] [address] Globulin (S) [Mass/Vol] 3.6 g/dL Critically high 2.3-3.5 [facility] Comment on above: Performed By: #### U AR #### [facility] [address] [place] [address] Glucose [Mass/Vol] 205 mg/dL Critically high 70-99 M [facility] Comment on above: Performed By: #### U AR #### [facility] [address] [place] [address] Potassium [Moles/Vol] 4.1 mmol/L Normal 3.4-4.9 [facility] Comment on above: Performed By: #### U AR #### [facility] [address] [place] [address] Protein [Mass/Vol] 8.3 g/dL Critically high 6.3-8.0 M [facility] Comment on above: Performed By: #### U AR #### [facility] [address] [place] [address] Sodium [Moles/Vol] 138 mmol/L Normal 135-144 [facility] Comment on above: Performed By: #### U AR #### [facility] [address] [place] [address] Urea nitrogen [Mass/Vol] 23 mg/dL Critically high 6-20 [facility] Comment on above: Performed By: #### U AR #### [facility] [address] [place] [address] Comprehensive metabolic 2000 panelon 09-17-2022 Albumin [Mass/Vol] 4.7 g/dL High 3.5 - 4.6 g/dL [facility] ALP [Catalytic activity/Vol] 93 U/L 40 - 130 U/L [facility] ALT [Catalytic activity/Vol] 14 U/L 0 - 33 U/L [facility] Anion gap [Moles/Vol] 14 mmol/L [facility] AST [Catalytic activity/Vol] 17 U/L 0 - 35 U/L [facility] Bilirubin [Mass/Vol] 0.5 mg/dL 0.2 - 0 .7 mg/dL [facility] Calcium [Mass/Vol] 10.1 mg/dL High 8.5 - 9.9 mg/dL [facility] Chloride [Moles/Vol] 103 mmol/L [facility] CO2 [Moles/Vol] 21 mmol/L [facility] Creatinine [Mass/Vol] 0.73 mg/dL 0.50 - 0.90 mg/dL [facility] GFR/1.73 sq M.predicted among non-blacks MDRD (S/P/Bld) [Vol rate/Area] 60 - PINF [facility] Comment on above: Pediatric calculator link https://www.kidney.org/professionals/kdoqi/gfr_calculatorped [...] 3.6 g/dL High 2.3 - 3.5 g/dL [facility] Glucose [Mass/Vol] 205 mg/dL High 70 - 99 mg/dL [facility] Interpretation and review of laboratory results Abnormal [facility] Potassium [Moles/Vol] 4.1 mmol/L [facility] Protein [Mass/Vol] 8.3 g/dL High 6.3 - 8.0 g/dL [facility] Sodium [Moles/Vol] 138 mmol/L [facility] Urea nitrogen [Mass/Vol] 23 mg/dL High 6 - 20 mg/dL [facility] Culture, Urineon 09-17-2022 Culture, Urine ORDER#: [id number] OR DERED BY: CHRISTIANO HARDING SOURCE: Urine Clean Catch COLLECTED: 09/17/22 01:30 ANTIBIOTICS AT [facility].: RECEIVED : 09/17/22 02:25 Culture, Urine FINAL 09/18/22 13:53 Cult,Urine: NO SIGNIFICANT GROWTH Performed at [id number] [place] [address] Normal [facility] Comment on above: Performed By: #### U NEYMAR #### [facility] [address] [place] [address] Lactate (BldV) [Moles/Vol]on 09-17-2022 [facility] Lactic Acidon 09-17-2022 Lactate [Moles/Vol] 1.8 mmol/L Normal 0.5-2.2 [facility] Comment on above: Performed By: #### P GLU #### [facility] [address] [place] [address] Lactate (BldV) [Moles/Vol] 1.8 mmol/L 0.5 - 2.2 mmol/L [facility] Lipaseon 09-17-2022 Lipase [Catalytic activity/Vol] 27 U/L Normal 12-95 [facility] Comment on above: Performed By: #### U NEYMAR #### [facility] [address] [place] [address] Lipase [Catalytic activity/Vol] 27 U/L 12 - 95 U/L [facility] Microscopic Urinalysison Bacteria LM Ql (Urine sed) Negative Negative /HPF [facility] Epithelial cells Auto (Urine sed) [#/Area] 6-10 [facility] Hyaline casts Auto (Urine sed) [#/Area] 5-10 [facility] RBC Auto (Urine sed) [#/Area] >100 High [facility] WBC Auto (Urine sed) [#/Area] 50-100 Abnormal [facility] No Panel Informationon 09-17 Interpretation and review of laboratory results Abnormal [facility] UR Drugs of Abuse Panelon Drug Screen Comment see below Normal [facility] Comment on above: Result Comment: This method is a screening test to detect only these drug classes as part of a medical workup. Confirmatory testing by another method should be ordered if clinically indicated. Performed By: #### U DRGS #### [facility] [address] [place] [address] UR Amphetamines Screen Negative Normal Negative < [facility] Comment on above: Performed By: #### U DRGS #### [facility] [address] [place] [address] UR Barbiturates Screen Negative Normal Negative < [facility] Comment on above: Performed By: #### U DRGS #### [facility] [address] [place] [address] UR Benzo Screen Negative Normal Negative < [facility] Comment on above: Performed By: #### U DRGS #### [facility] [address] [place] [address] UR Cannabinoids Screen Negative Normal Negative < [facility] Comment on above: Performed By: #### U DRGS #### [facility] [address] [place] [address] UR Cocaine Screen Negative Normal Negative < [facility] Comment on above: Performed By: #### U DRGS #### [facility] [address] [place] [address] UR Fentanyl Screen Negative Normal Negative < [facility] Comment on above: Performed By: #### U DRGS #### [facility] [address] [place] [address] UR Methadone Screen Negative Normal Negative < [facility] Comment on above: Performed By: #### U DRGS #### [facility] [address] [place] [address] UR Opiates Screen Negative Normal Negative < [facility] Comment on above: Performed By: #### U DRGS #### [facility] [address] [place] [address] UR Oxycodone Screen Negative Normal Negative < [facility] Comment on above: Performed By: #### U DRGS #### [facility] [address] [place] [address] UR PCP Screen Negative Normal Negative < [facility] Comment on above: Performed By: #### U DRGS #### [facility] [address] [place] [address] UR Propoxyphene Screen Negative Normal Negative < [facility] Comment on above: Performed By: #### U DRGS #### [facility] [address] [place] [address] URINE DRUG SCREENon 09-18-19 23 Amphetamines Ql (U) Negative Negative <1000 ng/mL [employer] [facility] Barbiturates Screen Ql (U) Negative Negative < 200 ng/mL [employer] Benzodiazepines Ql (U) Negative Negat isabella < 200 ng/mL [employer] [facility] Cannabinoids Screen Ql (U) Negative Negative < 50 ng/mL [employer] Cocaine Ql (U) Negative Negative < 300 ng/mL [employer] [facility] Drug screen comment (U) [Interp] see below [employer] Comment on above: This method is a scr eening test to detect only these drug classes as part of a medical workup. Confirmatory testing by another method should be ordered if clinically indicated. FENTANYL SCREEN, URINE Negative Negat isabella < 50 ng/mL [employer] Methadone Screen Ql (U) Negative Negative <300 ng/mL [employer] Opiates Screen Ql (U) Negative Negati ve < 300 ng/mL [employer] [facility] oxyCODONE Ql (U) Negative Negative <100 ng/mL [employer] [facility] Phencyclidine Ql (U) Negative Negativ e < 25 ng/mL [employer] Propoxyphene Screen Ql (U) Negative Negative <300 ng/mL [employer] Urinalysis with Reflex to Cu ltureon 09-17-2022 Bilirubin Ql (U) Negative Negative [facility] [employer] Clarity (U) CLOUDY Abnormal Clear [employer] Color (U) Yellow Straw/Mower ow [employer] Glucose Test strip (U) [Mass/Vol] Negative Negative mg/dL [facility] Hemoglobin Ql (U) LARGE Abnormal Negative [facility] Ketones (U) [Mass/Vol] 15 mg/dL Abnormal Negative [facility]ILAH N [facility] Leukocyte esterase Test strip Ql (U) MODERATE Abnormal Negative [facility] Nitrite Ql (U) Negative Negative [facility] pH (U) 5.0 [pH] 5.0 - 9.0 [facility] Protein (U) [Mass/Vol] TRACE Abnormal Negat isabella mg/dL [facility] Specific gravity (U) [Rel density] 1.029 1.005 - 1.030 [facility] Urine Reflex to Culture Yes [facility] Urobilinogen Qn (U) 0.2 N[facility] Urinalysis, reflex to cultur andre 09-17-2022 Urine Reflexed to Culture Yes Normal [facility] Comment on above: Performed By: #### P GLU #### [facility] [address] [place] [address] Bilirubin Ql (U) Negative Normal Negative [facility] Comment on above: Performed By: #### P GLU #### [facility] [address] [place] [place] [address] Clarity (U) CLOUDY Abnormal Clear [facility] Comment on above: Performed By: #### P GLU #### [facility] [address] [place] [place] [address] Color (U) Yellow Normal Straw/Mower [facility] Comment on above: Performed By: #### P GLU #### [facility] [address] [place] [address] Glucose Ql (U) Negative Normal Negative [facility] Comment on above: Performed By: #### P GLU #### [facility] [address] [place] [address] Hemoglobin Ql (U) LARGE Abnormal Negative [facility] Comment on above: Performed By: #### P GLU #### [facility] [address] [place] [address] Ketones Ql (U) 15 mg/dL Abnormal Negative [facility] Comment on above: Performed By: #### P GLU #### [facility] [address] [place] [address] Leukocyte esterase Test strip Ql (U) MODERATE Abnormal Negative [facility] Comment on above: Performed By: #### P GLU #### [facility] [address] [place] [address] Nitrite Ql (U) Negative Normal Negative [facility] Comment on above: Performed By: #### P GLU #### [facility] [address] [place] [address] pH (U) 5.0 [pH] Normal 5.0-9.0 [facility] Comment on above: Performed By: #### P GLU #### [facility] [address] [place] [address] Protein Ql (U) TRACE Abnormal Negative [facility] Comment on above: Performed By: #### P GLU #### [facility] [address] [place] [address] Specific gravity (U) [Rel density] 1.029 Normal 1.005-1.03 [facility] Comment on above: Performed By: #### P GLU #### [facility] [address] [place] [address] Urobilinogen Qn (U) 0.2 {Diaz'U}/dL Normal < 2.0 [facility] Comment on above: Performed By: #### P GLU #### [facility] [address] [place] [address] Urine Microscopicon 09-18-19 23 Bacteria LM.HPF (Urine sed) [#/Area] Negative Normal Negative [facility] Comment on above: Performed By: #### U NEYMAR #### [facility] [address] [place] [address] Urine Epithelial Cells Auto 6-10 Normal 0-5 [facility] Comment on above: Performed By: #### U NEYMAR #### [facility] [address] [place] [address] Urine Hyaline Casts Auto 5-10 Normal 0-5 [facility] Comment on above: Performed By: #### U NEYMAR #### [facility] [address] [place] [address] Urine RBC Auto >100 Critically high 0-5 [facility] Comment on above: Performed By: #### U NEYMAR #### [facility] [address] [place] [address] Urine WBC Auto 50-100 Abnormal 0-5 [facility] Comment on above: Performed By: #### U NEYMAR #### [facility] [address] [place] [address] Coding Summary.on 09-11-2022 Coding Summary. Normal [facility] CT Abdomen/Pelvis w/o Contra ston 09-09-2022 CT Abdomen/Pelvis w/o Contrast Normal [facility] Discharge Instructionson Discharge Instructions [id number]:1 27 Normal [facility] ED Clinical Summaryon 2022 ED Clinical Summary Normal [facility] ED Note-Physicianon 09-10-19 ED Note-Physician Normal [facility] Comment on above: Result Comment: Elec tronically Signed By: Geo Chaves PA-C\.br\Date and Time Signed: 09/08/22 23:44 EDT\.br\Electronically Co-Signed By: Grey Putnam DO\.br\Date and Time Co-Signed: 09/09/22 00:55 EDT ED Patient Education Noteon 09-09-2022 ED Patient Education Note Normal [facility] ED Patient Summaryon 023 ED Patient Summary Normal [facility] Auto Diffon 09-08-2022 Basophils/100 WBC (Bld) 0.8 % Normal 0.0-2.0 [facility] Comment on above: Order Comment: Order Added by Discern Expert. Performed By: #### 2 930959, 7162344, 5293615, 0048830, 00362517, 4687093 ####[address] [place] [address] Basophils/Leukocytes Auto (Bld) [Pure # fraction] 0.1 E9/L Normal 0.0-0.2 [facility] Comment on above: Order Comment: Order Added by Discern Expert. Performed By: #### 2 592443, 5460491, 8323994, 8640547, 49298905, 6934617 ####[address] [place] [address] Eosinophils/100 WBC (Bld) 11.2 % High 0.0-8.0 [facility] Comment on above: Order Comment: Order Added by Discern Expert. Performed By: #### 2 263815, 3651843, 7086607, 6331134, 48693978, 7531749 ####[address] [address] Eosinophils/Leukocytes Auto (Bld) [Pure # fraction] 1.0 E9/L High 0.0-0.5 [facility] Comment on above: Order Comment: Order Added by Discern Expert. Performed By: #### 2 291194, 9022956, 8696699, 0942735, 18417920, 7420570 ####[address] [address] Lymphocytes/100 WBC (Bld) 23.7 % Normal 14.0-50.0 [facility] Comment on above: Order Comment: Order Added by Discern Expert. Performed By: #### 2 457107, 5516660, 0238488, 8469281, 53674730, 4056751 ####[address] [address] Lymphocytes/Leukocytes Auto (Bld) [Pure # fraction] 2.0 E9/L Normal 1.0-4.0 [facility] Comment on above: Order Comment: Order Added by Discern Expert. Performed By: #### 2 333549, 3683514, 3837851, 4132690, 46208810, 7334166 ####[facility] [address] [place] [address] Monocytes/100 WBC (Bld) 6.5 % Normal 4.0-14.0 [facility] Comment on above: Order Comment: Order Added by Discern Expert. Performed By: #### 2 198158, 8600785, 4637189, 4320959, 38944675, 1292444 ####[facility] [address] [place] [address] Monocytes/Leukocytes Auto (Bld) [Pure # fraction] 0.6 E9/L Normal 0.2-1.0 [facility] Comment on above: Order Comment: Order Added by Discern Expert. Performed By: #### 2 444771, 7766541, 0555467, 3890572, 45547639, 4380883 ####[facility] [address] [place] [address] Neutrophils/100 WBC (Bld) 57.8 % Normal 36.0-75.0 [facility] Comment on above: Order Comment: Order Added by Discern Expert. Performed By: #### 2 322254, 3938720, 7654671, 2379387, 50923225, 2504120 ####[facility] [address] [place] [address] Neutrophils/Leukocytes Auto (Bld) [Pure # fraction] 4.9 E9/L Normal 2.0-7.5 [facility] Comment on above: Order Comment: Order Added by Discern Expert. Performed By: #### 2 428790, 3915132, 1797767, 0367759, 91042408, 4363961 ####[facility] [address] [place] [address] BMPon 09-08-2022 Creatinine [Mass/Vol] 0.8 mg/dL Normal 0.5-1.3 [facility] Comment on above: Order Comment: Patie nt in Imaging, Rn will start line for labs when patient is back. [id number] 09/08/2022 20:11:47 EDT Performed By: #### 2 873078, 2866978, 5551871, 9645644, 40465898, 7434547 ####[facility] [address] [place] [address] Urea nitrogen [Mass/Vol] 17 mg/dL Normal 5-21 [facility] Comment on above: Order Comment: Patie nt in Imaging, Rn will start line for labs when patient is back. [id number] 09/08/2022 20:11:47 EDT Performed By: #### 2 043531, 2064553, 3264408, 8223886, 35991612, 3959435 ####[facility] [address] [place] [address] Urea nitrogen/Creatinine [Mass ratio] 21 No Units High 10-20 [facility] Comment on above: Order Comment: Patie nt in Imaging, Rn will start line for labs when patient is back. [id number] 09/08/2022 20:11:47 EDT Performed By: #### 2 889393, 0058719, 7629530, 7918309, 35360187, 7156047 ####[facility] [address] [place] [address] Anion gap [Moles/Vol] 11 mmol/L Normal 6-16 [facility] Comment on above: Order Comment: Patie nt in Imaging, Rn will start line for labs when patient is back. [id number] 09/08/2022 20:11:47 EDT Performed By: #### 2 295145, 8784432, 1292195, 1675633, 46046415, 4029962 ####[facility] [address] [place] [address] Calcium [Mass/Vol] 8.8 mg/dL Low 8.9-11.1 [facility] Comment on above: Order Comment: Patie nt in Imaging, Rn will start line for labs when patient is back. [id number] 09/08/2022 20:11:47 EDT Performed By: #### 2 049595, 8799264, 1614279, 6679950, 00243637, 9073689 ####[facility] [address] [place] [address] Chloride [Moles/Vol] 107 mmol/L Normal 101-111 [facility] Comment on above: Order Comment: Nelly minaya in Imaging, Rn will start line for labs when patient is back. [id number] 09/08/2022 20:11:47 EDT Performed By: #### 2 280164, 0911440, 1035281, 0084986, 17973719, 3061267 ####[facility] [address] [place] [address] CO2 [Moles/Vol] 26 mmol/L Normal 21-[address] [facility] Comment on above: Order Comment: Nelly minaya in Imaging, Rn will start line for labs when patient is back. [id number] 09/08/2022 20:11:47 EDT Performed By: #### 2 051927, 2478021, 2851142, 0120029, 95319136, 9407682 ####[facility] [address] [place] [address] Glucose [Mass/Vol] 195 mg/dL Normal 55-199 [facility] Comment on above: Order Comment: Nelly minaya in Imaging, Rn will start line for labs when patient is back. [id number] 09/08/2022 20:11:47 EDT Result Comment: If t his glucose result represents a fasting glucose, interpretation should refer to the following reference range: 55-99 mg/dL Performed By: #### 2 099118, 7721806, 7073349, 9146364, 91369135, 1373317 ####[facility] [address] [place] [address] Potassium [Moles/Vol] 3.7 mmol/L Normal 3.5-5.3 [facility] Comment on above: Order Comment: Nelly minaya in Imaging, Rn will start line for labs when patient is back. [id number] 09/08/2022 20:11:47 EDT Performed By: #### 2 233296, 7679616, 7957892, 5208257, 56191989, 2240268 ####[facility] [address] [place] [address] Sodium [Moles/Vol] 140 mmol/L Normal 135-145 [facility] Comment on above: Order Comment: Nelly minaya in Imaging, Rn will start line for labs when patient is back. [id number] 09/08/2022 20:11:47 EDT Performed By: #### 2 798915, 2304085, 8452302, 6103187, 72796441, 9829704 ####[facility] [address] [place] [address] CBC w/ Auto Diffon Erythrocyte distribution width (RBC) [Ratio] 12.9 % Normal 10.9-14.2 [facility] Comment on above: Performed By: #### 2 220277, 1119600, 9119165, 3735547, 17262050, 8956200 ####[facility] [address] [place] [address] Hematocrit (Bld) [Volume fraction] 37.9 % Normal 34.0-46.0 [facility] Comment on above: Performed By: #### 2 886597, 4644848, 8047167, 4909038, 10442734, 4657405 ####[facility] [address] [place] [address] Hemoglobin (Bld) [Mass/Vol] 12.9 g/dL Normal 12.0-16.0 [facility] Comment on above: Performed By: #### 2 599056, 2322920, 0358038, 7591634, 42677505, 1218067 ####[facility] [address] [place] [address] MCH (RBC) [Entitic mass] 30.4 pg Normal 27.0-34.0 [facility] Comment on above: Performed By: #### 2 915569, 8736821, 8216259, 4034520, 57683679, 5050302 ####[facility] [address] [place] [address] MCHC (RBC) [Mass/Vol] 34.1 g/dL Normal 31.4-36.0 [facility] Comment on above: Performed By: #### 2 491007, 0182103, 0779121, 5089049, 09299333, 3710392 ####[address] [address] MCV (RBC) [Entitic vol] 89.2 fL Normal 80.0-100.0 [facility] Comment on above: Performed By: #### 2 049282, 6993791, 6625043, 2229616, 08207886, 6619049 ####[facility] [address] [place] [address] Platelet mean volume (Bld) [Entitic vol] 6.9 fL Normal 6.4-10.8 [facility] Comment on above: Performed By: #### 2 513335, 6558865, 7176117, 2173962, 17125097, 9302420 ####[address] [address] Platelets (Bld) [#/Vol] 195.0 E9/L Normal 150.0-500. 0 [facility] Comment on above: Performed By: #### 2 829803, 3513609, 5494569, 2238523, 94269777, 4977709 ####[address] [address] RBC (Bld) [#/Vol] 4.2 E12/L Low 4.3-5.9 [facility] Comment on above: Performed By: #### 2 097746, 9278549, 5270598, 8725185, 90110500, 5315393 ####[address] [place] [address] WBC corrected for nucl RBC Auto (Bld) [#/Vol] 8.5 E9/L Normal 4.0-11.[address] [facility] Comment on above: Result Comment: Slid e reviewed by ts. Performed By: #### 2 986681, 5978288, 5194349, 4742130, 71255965, 0870008 ####[facility] [address] [place] [address] CHEMISTRYOrdered By: SYSTEM SYSTEM on 09-08-2022 Albumin [...] m2 FT Chem S Globulin (S) [Mass/Vol] 3.2 g/dL Normal 1.4 - 4.0 gm/dL [facility] Remisol Glucose [Mass/Vol] 195 mg/dL Normal 55 - 199 mg/dL [facility] Lipase [Catalytic activity/Vol] 36 U/L Normal 13 - 58 unit/L [facility] Potassium [Moles/Vol] 3.7 mmol/L Normal 3.5 - 5.3 mmol/L [facility] Protein [Mass/Vol] 7.2 g/dL Normal 6.0 - 7.8 gm/dL [facility] Sodium [Moles/Vol] 140 mmol/L Normal 135 - 145 mmol/L [facility] Urea nitrogen [Mass/Vol] 17 mg/dL Normal 5 - 21 mg/dL [facility] Urea nitrogen/Creatinine [Mass ratio] 21 mg/mg High 10 - 20 [facility]isol Consent for Treatmenton 08-27 Consent for Treatment [id number]:12 7 Normal [facility] HEMATOLOGYOrdered By: SYSTEM SYSTEM on 09-08-2022 Basophils/100 [...] Result Comment: Slid e reviewed by ts. Hep Func Panelon 09-08-2022 Bilirubin.indirect [Mass or moles/Vol] UTC Abnormal 0.1-0.9 [facility] Comment on above: Result Comment: Resu lt verified by Discern Rule. Performed result UTC (Unable to Calculate) was sent as an Alpha code due the inability to calculate a valid numeric value. Performed By: #### 2 770558, 8781574, 7421534, 7990663, 92985972, 9666248 ####[facility] [address] [place] [address] Albumin [Mass/Vol] 4.0 g/dL Normal 3.3-5.0 [facility] Comment on above: Performed By: #### 2 406050, 6598295, 3494061, 4032252, 88059437, 8748025 ####[facility] [address] [place] [address] Albumin/Globulin (S) [Mass conc ratio] 1.2 Normal 1.1-2.2 [facility] Comment on above: Performed By: #### 2 153776, 9835155, 4459406, 4264960, 88416154, 4419508 ####[address] [address] ALP [Catalytic activity/Vol] 71 Int._Unit/L Normal 21-98 [facility] Comment on above: Performed By: #### 2 090974, 2398554, 3814529, 9422115, 49011085, 6995313 ####[address] [address] ALT No additional P-5'-P [Catalytic activity/Vol] 17 Int._Unit/L Normal 6-46 [facility] Comment on above: Performed By: #### 2 039717, 8526142, 8138230, 3144756, 67903836, 2889040 ####[facility] [address] [place] [address] AST [Catalytic activity/Vol] 18 Int._Unit/L Normal 5-43 [facility] Comment on above: Performed By: #### 2 109375, 1054618, 1974682, 0084348, 47889499, 8935282 ####[facility] [address] [place] [address] Bilirubin [Mass/Vol] 0.5 mg/dL Normal 0.0-1.1 [facility] Comment on above: Performed By: #### 2 277428, 1345101, 6184875, 9696916, 47789837, 1787593 ####[facility] [address] [place] [address] Bilirubin.direct [Mass/Vol] mg/dL Normal 0.1-0.4 [facility] Comment on above: Performed By: #### 2 700256, 1889152, 7271820, 5037542, 55255928, 8767166 ####[address] [address] Globulin (S) [Mass/Vol] 3.2 g/dL Normal 1.4-4.0 [facility] Comment on above: Performed By: #### 2 411872, 6093317, 3936760, 8934584, 22895972, 3445648 ####[address] [address] Protein [Mass/Vol] 7.2 g/dL Normal 6.0-7.8 [facility] Comment on above: Performed By: #### 2 464255, 0286004, 8350193, 8188757, 12265361, 4549062 ####[address] [address] Lipase Levelon 09-08-2022 Lipase [Catalytic activity/Vol] 36 U/L Normal 13-58 [facility] Comment on above: Performed By: #### 2 669856, 8961390, 4184720, 0271574, 46669942, 3588840 ####[address] [address] RAD - Preliminary Cat Scan R eporton 09-08-2022 RAD - Preliminary Cat Scan Report [id number]:1 27 Normal [facility] UA With Cult Reflexon 2022 Bilirubin Ql (U) Negative Normal Negative [facility] Comment on above: Performed By: #### 1 6463235 ####[address] [address] Clarity (U) SL CLOUDY Invalid Interpretation Code [facility] Comment on above: Performed By: #### 1 2393661 ####[facility] [address] [place] [address] Color (U) YELLOW Normal Yellow [facility] Comment on above: Performed By: #### 1 0924084 ####[address] [address] Epithelial cells.squamous LM.HPF (Urine sed) [#/Area] 0-2 Normal 0-2 [facility] Comment on above: Performed By: #### 1 0238485 ####[address] [address] Glucose Test strip (U) [Mass/Vol] 2+ Abnormal Negative [facility] Comment on above: Performed By: #### 1 5994706 ####[address] [address] Hemoglobin Ql (U) 3+ Abnormal Negative [facility] Comment on above: Performed By: #### 1 3233442 ####[facility] [address] [place] [address] Ketones (U) [Mass/Vol] TRACE Invalid Interpretation Code Negative [facility] Comment on above: Performed By: #### 1 5549934 ####[address] [address] [place].plasma/[place] .RBC (Bld) [Mass ratio] 21-30 Abnormal 0-3 [facility] Comment on above: Performed By: #### 1 4945270 ####[facility] [address] [place] [address] Nitrite Ql (U) Negative Normal Negative [facility] Comment on above: Performed By: #### 1 6507672 ####[address] [address] pH (U) 6.0 [pH] Invalid Interpretation Code 5.0-9.0 [facility] Comment on above: Performed By: #### 1 5160249 ####[facility] [address] [place] [address] Protein (U) [Mass/Vol] Negative Normal Negative [facility] Comment on above: Performed By: #### 1 2778196 ####[address] [address] Specific gravity (U) [Rel density] >=1.030 Invalid Interpretation Code 1.005-1.03 0 [facility] Comment on above: Performed By: #### 1 3909117 ####[place] [address] Type of Urine collection method Clean Catch Normal [facility] Comment on above: Performed By: #### 1 2440236 ####[address] [address] Urobilinogen Qn (U) 0.2 {Diaz'U}/dL Normal 0.0-1.0 [facility] Comment on above: Performed By: #### 1 0043839 ####[facility] [address] [place] [address] WBC Auto Ql (U) TRACE Abnormal Negative [facility] Comment on above: Performed By: #### 1 2302936 ####[facility] [address] [place] [address] WBC LM.HPF (Urine sed) [#/Area] 0-5 Normal 0-5 [facility] Comment on above: Performed By: #### 1 1317540 ####[address] [address] URINALYSISOrdered By: Mark Kate on 09-08-2022 Bilirubin Ql (U) Negative (09/08/22 8:30 PM) Normal Negative [facility] Auto SS Clarity (U) SL CLOUDY Invalid Interpretation Code [facility] UA Auto SS Color (U) Yellow (09/08/22 8:30 PM) Normal Yellow [facility] UA Auto SS Epithelial cells.squamous LM.HPF (Urine sed) [#/Area] 0-2 /HPF Normal 0-2/HPF [facility] UA Aut o SS Glucose Test strip (U) [Mass/Vol] 2+ *ABN* (09/08/22 8:30 PM) Invalid Interpretation Code Negative [facility] UA Auto SS Hemoglobin Ql (U) 3+ *ABN* (09/08/22 8:30 PM) Invalid Interpretation Code Negative [facility] UA Auto SS Ketones (U) [Mass/Vol] Trace *NA* (09/08/22 8:30 PM) Invalid Interpretation Code Negative [facility] UA Auto SS [place].plasma/[place] .RBC (Bld) [Mass ratio] 21-30 /HPF Invalid [...] Desc Clean Catch (09/08/22 8:30 PM) Normal [facility] UA Auto SS Urobilinogen Qn (U) [id number] {Diaz'U}/dL Normal 0.0 - 1.0 EU/dL FT UA Auto SS WBC Auto Ql (U) Trace *ABN* (09/08/22 8:30 PM) Invalid Interpretation Code Negative FT UA Auto SS WBC LM.HPF (Urine sed) [#/Area] 0-5 /HPF Normal 0-5/HPF FT UA Auto SS eGFRon 09-08-2022 GFR/1.73 sq M.predicted among blacks MDRD (S/P/Bld) [Vol rate/Area] mL/min/{1.73_m2} Normal >=59 [facility] Comment on above: Order Comment: Order added by Discern Expert. Result Comment: eGFR is race adjusted. AA=. Performed By: #### 2 [id number], [id number], [id number], [id number], [id number], [id number] ####[facility] [address] [place] [address] GFR/1.73 sq M.predicted among non-blacks MDRD (S/P/Bld) [Vol rate/Area] mL/min/{1.73_m2} Normal >=59 [facility] Comment on above: Order Comment: Order added by Discern Expert. 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 Kidney failure is indicated at less than 15 mL/min/1.73m2. Performed By: #### 2 [id number], [id number], [id number], [id number], [id number], [id number] ####[facility] [address] [place] [address] CT abdomen pelvis wo conon 0 09-07-2022 CT abdomen pelvis wo con Normal [facility] Alanine aminotransferase [En zymatic activity/volume] in Serum or PlasmaOrdered By: Giacomo West on 09-06-2022 ALT [Catalytic activity/Vol] 13 U/L 7-52 [facility] Albumin [Mass/volume] in Ser um or Plasma by Bromocresol green (BCG) dye binding methoOrdered By: Giacomo West on 09-06-2022 Albumin BCG dye [Mass/Vol] 4.4 g/dL 3.5-5.7 [facility] Alkaline phosphatase [Enzyma tic activity/volume] in Serum or PlasmaOrdered By: Giacomo West on 09-06-2022 ALP [Catalytic activity/Vol] 72 U/L 34-104 [facility] Aspartate aminotransferase [ Enzymatic activity/volume] in Serum or PlasmaOrdered By: Giacomo West on 09-06-2022 AST [Catalytic activity/Vol] 14 U/L 13-39 [facility] Automated erythrocytes count in urine sediment (number/area)Ordered By: Giacomo West on 09-06-2022 RBC Auto (Urine sed) [#/Area] Innumerable [HPF] 0-4 [facility] Automated leukocytes count i n urine sediment (number/area)Ordered By: Giacomo West on 09-06-2022 WBC Auto (Urine sed) [#/Area] Innumerable [HPF] 0-4 [facility] Bacterial blood cultureOrder ed By: Giacomo West on 09-06-2022 Bacteria identified Cx Nom (Bld) NO GROWTH 5 DAYS [facility] Basic Metabolic Panelon 08-27 Anion gap [Moles/Vol] 9.1 mmol/L Normal 6.0-15.0 [facility] Comment on above: Performed By: #### L ACTIC, CBC, HEPATIC, BMP, LIPASE, CUBLD ####[place] [address] Calcium [Mass/Vol] 9.6 mg/dL Normal 8.6-10.3 [facility] Comment on above: Performed By: #### L ACTIC, CBC, HEPATIC, BMP, LIPASE, CUBLD ####[place] [id number] [facility] Chloride [Moles/Vol] 105 mmol/L Normal 98-107 [facility] Comment on above: Performed By: #### L ACTIC, CBC, HEPATIC, BMP, LIPASE, CUBLD ####[place] [id number] [facility] CO2 [Moles/Vol] 29.7 mmol/L Normal 21.0-31.0 [facility] Comment on above: Performed By: #### L ACTIC, CBC, HEPATIC, BMP, LIPASE, CUBLD ####[address] [address] [facility] Creatinine [Mass/Vol] 0.65 mg/dL Normal 0.60-1.20 [facility] Comment on above: Performed By: #### L ACTIC, CBC, HEPATIC, BMP, LIPASE, CUBLD ####[address] [address] [place] Creatinine Clr Calc Pharmacy 145.09 Normal [facility] Comment on above: Performed By: #### L ACTIC, CBC, HEPATIC, BMP, LIPASE, CUBLD ####[address] [address] [facility] GFR/1.73 sq M.predicted MDRD (S/P/Bld) [Vol rate/Area] mL/min/{1.73_m2} Normal [facility] Comment on above: Performed By: #### L ACTIC, CBC, HEPATIC, BMP, LIPASE, CUBLD ####[place] [address] Glucose [Mass/Vol] 64 mg/dL Low 74-109 [facility] Comment on above: Result Comment: [place] Glucose Reference Range is dependent on time and content of last meal. Glucose of more than 200 mg/dL in a nonstressed, ambulatory subject supports the diagnosis of Diabetes Mellitus. ADA recommended reference range Performed By: #### L ACTIC, CBC, HEPATIC, BMP, LIPASE, CUBLD ####[place] [address] Potassium [Moles/Vol] 3.8 mmol/L Normal 3.5-5.1 [facility] Comment on above: Performed By: #### L ACTIC, CBC, HEPATIC, BMP, LIPASE, CUBLD ####[address] Sodium [Moles/Vol] 140 mmol/L Normal 136-145 [facility] Comment on above: Performed By: #### L ACTIC, CBC, HEPATIC, BMP, LIPASE, CUBLD ####[address] Urea nitrogen [Mass/Vol] 18 mg/dL Normal 7-25 [facility] Comment on above: Performed By: #### L ACTIC, CBC, HEPATIC, BMP, LIPASE, CUBLD ####[address] Basophils Auto (Bld) [#/Vol] Ordered By: Giacomo West on 09-06-2022 Basophils (Bld) [#/Vol] 0.1 10*3/uL 0.0-0.2 [facility] Basophils/100 WBC Auto (Bld) Ordered By: Giacomo West on 09-06-2022 Basophils/100 WBC (Bld) 1.0 % . [facility] Bilirubin Test strip Ql (U)O rdered By: Giacomo West on 09-06-2022 Bilirubin Ql (U) Negative Negative [facility] Bilirubin.direct [Mass/volum e] in Serum or PlasmaOrdered By: Giacomo West on 09-06-2022 Bilirubin.direct [Mass/Vol] 0.00 mg/dL 0.03-0.18 [facility] Comment on above: If the DBIL is less than 0.1, IBIL is not able to becalculated. Bilirubin.total [Mass/volume ] in Serum or PlasmaOrdered By: Giacomo West on 09-06-2022 Bilirubin [Mass/Vol] 0.3 mg/dL 0.3-1.0 [facility] Blood Cultureon 09-06-2022 Bacteria identified Cx Nom (Bld) NO GROWTH 5 DAYS PERFORMED BY: [address] [place] [address] PATHOLOGIST UNDERWRITING SALES REPRESENTATIVE NATALIA MIKE M.D. [facility] Comment on above: Performed By: #### L ACTIC, CBC, HEPATIC, BMP, LIPASE, CUBLD ####[address] [address] [facility] Bacteria identified Cx Nom (Bld) NO GROWTH 5 DAYS PERFORMED BY: [facility] [address] [place] [address] PATHOLOGIST UNDERWRITING SALES REPRESENTATIVE NATALIA MIKE M.D. [facility] Comment on above: Performed By: #### L ACTIC, CBC, HEPATIC, BMP, LIPASE, CUBLD ####[place] [id number] [facility] Calcium [Mass/volume] in Ser um or PlasmaOrdered By: Giacomo West on 09-06-2022 Calcium [Mass/Vol] 9.6 mg/dL 8.6-10.3 [facility] Carbon dioxide, total [Moles /volume] in Serum or PlasmaOrdered By: Giacomo West on 09-06-2022 CO2 [Moles/Vol] 29.7 mmol/L 21.0-31.0 [facility] Chloride [Moles/volume] in S jaron or PlasmaOrdered By: Giacomo West on 09-06-2022 Chloride [Moles/Vol] 105 mmol/L 98-107 [facility] Color Auto (U)Ordered By: Rod West on 09-06-2022 Color (U) Yellow Yellow [facility] Complete Blood Count Auto Di ffon 09-06-2022 Basophils (Bld) [#/Vol] 0.1 10*3/uL Normal 0.0-0.2 [facility] Comment on above: Result Comment: PERF ORMED BY:[address] [place], [place] [phone] MEDICAL DIRECTORNATALIA MIKE M.D. Performed By: #### L ACTIC, CBC, HEPATIC, BMP, LIPASE, CUBLD ####[address] Basophils/100 WBC (Bld) 1.0 % Normal . [facility] Comment on above: Performed By: #### L ACTIC, CBC, HEPATIC, BMP, LIPASE, CUBLD ####[address] Eosinophils (Bld) [#/Vol] 0.7 10*3/uL High 0.0-0.45 [facility] Comment on above: Performed By: #### L ACTIC, CBC, HEPATIC, BMP, LIPASE, CUBLD ####[address] Eosinophils/100 WBC (Bld) 8.7 % Normal . [facility] Comment on above: Performed By: #### L ACTIC, CBC, HEPATIC, BMP, LIPASE, CUBLD ####[address] Erythrocyte distribution width (RBC) [Ratio] 12.9 % Normal 11.9-15.3 [facility] Comment on above: Performed By: #### L ACTIC, CBC, HEPATIC, BMP, LIPASE, CUBLD ####[address] Hematocrit (Bld) [Volume fraction] 36.5 % Normal 34.0-46.4 [facility] Comment on above: Performed By: #### L ACTIC, CBC, HEPATIC, BMP, LIPASE, CUBLD ####[address] Hemoglobin (Bld) [Mass/Vol] 12.7 g/dL Normal 11.8-15.4 [facility] Comment on above: Performed By: #### L ACTIC, CBC, HEPATIC, BMP, LIPASE, CUBLD ####[address] Lymphocytes (Bld) [#/Vol] 2.1 10*3/uL Normal 1.00-4.8 [facility] Comment on above: Performed By: #### L ACTIC, CBC, HEPATIC, BMP, LIPASE, CUBLD ####[address] Lymphocytes/100 WBC (Bld) 26.6 % Normal . [facility] Comment on above: Performed By: #### L ACTIC, CBC, HEPATIC, BMP, LIPASE, CUBLD ####[address] MCH (RBC) [Entitic mass] 30.3 pg Normal 24.7-34.3 [facility] Comment on above: Performed By: #### L ACTIC, CBC, HEPATIC, BMP, LIPASE, CUBLD ####[address] MCV (RBC) [Entitic vol] 87.2 fL Normal 80-100 [facility] Comment on above: Performed By: #### L ACTIC, CBC, HEPATIC, BMP, LIPASE, CUBLD ####[address] Mean Corpuscular HGB Conc 34.8 g/dL Normal 32.0-35.0 [facility] Comment on above: Performed By: #### L ACTIC, CBC, HEPATIC, BMP, LIPASE, CUBLD ####[address] Monocytes (Bld) [#/Vol] 0.5 10*3/uL Normal 0.0-0.8 [facility] Comment on above: Performed By: #### L ACTIC, CBC, HEPATIC, BMP, LIPASE, CUBLD ####[address] Monocytes/100 WBC (Bld) 19.20 % Normal 0.00-20.00 [facility] Comment on above: Performed By: #### L ACTIC, CBC, HEPATIC, BMP, LIPASE, CUBLD ####[address] Monocytes/100 WBC (Bld) 6.7 % Normal . [facility] Comment on above: Performed By: #### L ACTIC, CBC, HEPATIC, BMP, LIPASE, CUBLD ####[address] Neutrophils (Bld) [#/Vol] 4.6 10*3/uL Normal 1.8-7.7 [facility] Comment on above: Performed By: #### L ACTIC, CBC, HEPATIC, BMP, LIPASE, CUBLD ####[address] Neutrophils/100 WBC (Bld) 57.0 % Normal . [facility] Comment on above: Performed By: #### L ACTIC, CBC, HEPATIC, BMP, LIPASE, CUBLD ####[address] NRBC% 0.0 /100{WBC} Normal 0-0.5 [facility] Comment on above: Performed By: #### L ACTIC, CBC, HEPATIC, BMP, LIPASE, CUBLD ####[address] Platelet mean volume (Bld) [Entitic vol] 6.9 fL Normal 6.3-10.7 [facility] Comment on above: Performed By: #### L ACTIC, CBC, HEPATIC, BMP, LIPASE, CUBLD ####[address] Platelets (Bld) [#/Vol] 216 10*3/uL Normal 150-450 [facility] Comment on above: Performed By: #### L ACTIC, CBC, HEPATIC, BMP, LIPASE, CUBLD ####[place] [address] [place] [address] [facility] RBC (Bld) [#/Vol] 4.18 10*6/uL Normal 3.60-5.00 [facility] Comment on above: Performed By: #### L ACTIC, CBC, HEPATIC, BMP, LIPASE, CUBLD ####[place] [address] [place] [address] [facility] WBC (Bld) [#/Vol] 8.0 10*3/uL Normal 3.8-11.6 [facility] Comment on above: Performed By: #### L ACTIC, CBC, HEPATIC, BMP, LIPASE, CUBLD ####[place] [address] [place] [id number] [facility] Creatinine [Mass/volume] in Serum or PlasmaOrdered By: Giacomo West on 09-06-2022 Creatinine [Mass/Vol] 0.65 mg/dL 0.60-1.20 [facility] Dipstick and Microscopicon 0 09-06-2022 Appearance (U) Cloudy Critically abnormal Clear [facility] Comment on above: Order Comment: Name Collection Type:: Clean-Voided Midstream Performed By: #### A DDONUAPLUS, UHCG, CUU ####[place] [address] [place] [address] [facility] Bacteria,Urine None Seen Normal None Seen [facility] Comment on above: Order Comment: Name Collection Type:: Clean-Voided Midstream Performed By: #### A DDONUAPLUS, UHCG, CUU ####[place] [address] [place] [address] [place] Bilirubin,Urine Negative Normal Negative [facility] Comment on above: Order Comment: Name Collection Type:: Clean-Voided Midstream Performed By: #### A DDONUAPLUS, UHCG, CUU ####[place] [address] [place] [address] [facility] Color (U) Yellow Normal Yellow [facility] Comment on above: Order Comment: Name Collection Type:: Clean-Voided Midstream Performed By: #### A DDONUAPLUS, UHCG, CUU ####[address] [address] [facility] Glucose Ql (U) Normal Normal Normal [facility] Comment on above: Order Comment: Name Collection Type:: Clean-Voided Midstream Performed By: #### A DDONUAPLUS, UHCG, CUU ####[address] [address] [facility] Hyaline Casts,Urine 0-8 Normal 0-8 [facility] Comment on above: Order Comment: Name Collection Type:: Clean-Voided Midstream Performed By: #### A DDONUAPLUS, UHCG, CUU ####[address] [address] [facility] Ketones Ql (U) Negative Normal Negative [facility] Comment on above: Order Comment: Name Collection Type:: Clean-Voided Midstream Performed By: #### A DDONUAPLUS, UHCG, CUU ####[address] [address] [facility] Leukocyte esterase Test strip Ql (U) 4+ High Negative [facility] Comment on above: Order Comment: Name Collection Type:: Clean-Voided Midstream Performed By: #### A DDONUAPLUS, UHCG, CUU ####[address] [address] [facility] Nitrite,Urine Negative Normal Negative [facility] Comment on above: Order Comment: Name Collection Type:: Clean-Voided Midstream Performed By: #### A DDONUAPLUS, UHCG, CUU ####[address] [address] [facility] Occult Blood,Urine 3+ High Negative [facility] Comment on above: Order Comment: Name Collection Type:: Clean-Voided Midstream Performed By: #### A DDONUAPLUS, UHCG, CUU ####[place] [id number] [place] pH (U) 5.5 [pH] Normal 5.0-9.0 [facility] Comment on above: Order Comment: Name Collection Type:: Clean-Voided Midstream Performed By: #### A DDONUAPLUS, UHCG, CUU ####[address] [address] [facility] Protein,Urine Trace High Negative [facility] Comment on above: Order Comment: Name Collection Type:: Clean-Voided Midstream Performed By: #### A DDONUAPLUS, UHCG, CUU ####[address] [address] [facility] RBC,Urine Innumerable High 0-4 [facility] Comment on above: Order Comment: Name Collection Type:: Clean-Voided Midstream Performed By: #### A DDONUAPLUS, UHCG, CUU ####[address] [address] [facility] Specificy Dent,Urine 1.028 Normal 1.001-1.03 0 [facility] Comment on above: Order Comment: Name Collection Type:: Clean-Voided Midstream Performed By: #### A DDONUAPLUS, UHCG, CUU ####[address] [address] [facility] Squamous Epithelial Cell,Urine 3-4 High 0-2 [facility] Comment on above: Order Comment: Name Collection Type:: Clean-Voided Midstream Performed By: #### A DDONUAPLUS, UHCG, CUU ####[address] [address] [facility] Urobilinogen,Urine Normal Normal Normal [facility] Comment on above: Order Comment: Name Collection Type:: Clean-Voided Midstream Performed By: #### A DDONUAPLUS, UHCG, CUU ####[address] [address] [facility] WBC,Urine Innumerable High 0-4 [facility] Comment on above: Order Comment: Name Collection Type:: Clean-Voided Midstream Performed By: #### A DDONUAPLUS, UHCG, CUU ####[facility] [place] [address] [facility] Eosinophils Auto (Bld) [#/Vo l]Ordered By: Giacomo West on 09-06-2022 Eosinophils (Bld) [#/Vol] 0.7 10*3/uL 0.0-0.45 [facility] Eosinophils/100 WBC Auto (Bl d)Ordered By: Giacomo West on 09-06-2022 Eosinophils/100 WBC (Bld) 8.7 % . [facility] Erythrocyte distribution wid th Auto (RBC) [Ratio]Ordered By: Giacomo West on 09-06-2022 Erythrocyte distribution width (RBC) [Ratio] 12.9 % 11.9-15.3 [facility] Globulin Calc (S) [Mass/Vol] Ordered By: Giacomo West on 09-06-2022 Globulin (S) [Mass/Vol] 2.9 g/dL [facility] Glucose [Mass/volume] in Ser um or PlasmaOrdered By: Giacomo West on 09-06-2022 Glucose [Mass/Vol] 64 mg/dL 74-109 [facility] Comment on above: ADA recommended refe rence rangeRandom Glucose Reference Range is dependent on time and content of last meal. Glucose of more than 200 mg/dL in a nonstressed, ambulatory subject supports the diagnosis of Diabetes Mellitus. HCG ( test) IA.rapi d Ql (U)Ordered By: Giacomo West on 09-06-2022 HCG ( test) Ql (U) Negative [facility] HCG,Urineon 09-06-2022 Beta HCG ( test) Ql (U) Negative Normal [facility] Comment on above: Order Comment: Name Collection Type:: Clean-Voided Midstream Result Comment: PERF ORMED BY:[place] [address] [place], [place] [phone] MEDICAL DIRECTORNATALIA MIKE M.D. Performed By: #### A JOANA, [facility], CUU ####[facility] [place] [address] [facility] Hematocrit Auto (Bld) [Volum e fraction]Ordered By: Giacomo West on 09-06-2022 Hematocrit (Bld) [Volume fraction] 36.5 % 34.0-46.4 [facility] Hemoglobin [Mass/volume] in BloodOrdered By: Giacomo West on 09-06-2022 Hemoglobin (Bld) [Mass/Vol] 12.7 g/dL 11.8-15.4 [facility] Hepatic Panelon 09-06-2022 Albumin [Mass/Vol] 4.4 g/dL Normal 3.5-5.7 [facility] Comment on above: Performed By: #### L ACTIC, CBC, HEPATIC, BMP, LIPASE, CUBLD ####[address] Albumin/Globulin [Mass ratio] 1.5 {ratio} Normal [facility] Comment on above: Performed By: #### L ACTIC, CBC, HEPATIC, BMP, LIPASE, CUBLD ####[address] ALP [Catalytic activity/Vol] 72 U/L Normal 34-104 [facility] Comment on above: Performed By: #### L ACTIC, CBC, HEPATIC, BMP, LIPASE, CUBLD ####[address] ALT [Catalytic activity/Vol] 13 U/L Normal 7-52 [facility] Comment on above: Performed By: #### L ACTIC, CBC, HEPATIC, BMP, LIPASE, CUBLD ####[place] [id number] [facility] AST [Catalytic activity/Vol] 14 U/L Normal 13-39 [facility] Comment on above: Performed By: #### L ACTIC, CBC, HEPATIC, BMP, LIPASE, CUBLD ####[address] Bilirubin [Mass/Vol] 0.3 mg/dL Normal 0.3-1.0 [facility] Comment on above: Performed By: #### L ACTIC, CBC, HEPATIC, BMP, LIPASE, CUBLD ####[place] [address] [place] Bilirubin,Indirect 0.3 mg/dL Normal [facility] Comment on above: Performed By: #### L ACTIC, CBC, HEPATIC, BMP, LIPASE, CUBLD ####[place] [address] Bilirubin.indirect [Mass/Vol] 0.00 mg/dL Low 0.03-0.18 [facility] Comment on above: Result Comment: If t he DBIL is less than 0.1, IBIL is not able to be calculated. Performed By: #### L ACTIC, CBC, HEPATIC, BMP, LIPASE, CUBLD ####[place] [address] Globulin (S) [Mass/Vol] 2.9 g/dL Normal [facility] Comment on above: Performed By: #### L ACTIC, CBC, HEPATIC, BMP, LIPASE, CUBLD ####[place] [address] Protein [Mass/Vol] 7.3 g/dL Normal 6.4-8.9 [facility] Comment on above: Performed By: #### L ACTIC, CBC, HEPATIC, BMP, LIPASE, CUBLD ####[address] Ketones Auto test strip (U) [Mass/Vol]Ordered By: Giacomo West on 09-06-2022 Ketones (U) [Mass/Vol] Negative Negative [facility] Laboratory - Chemistry and C hemistry - challengeOrdered By: Giacomo West on 09-06-2022 GFR/1.73 sq M.predicted MDRD (S/P/Bld) [Vol rate/Area] mL/min/{1.73_m2} [facility] Laboratory - UrinalysisOrder ed By: Giacomo West on 09-06-2022 Hyaline casts LM Ql (Urine sed) 0-8 [LPF] 0-8 [facility] Lactate [Moles/volume] in Se rum or PlasmaOrdered By: Giacomo West on 09-06-2022 Lactate [Moles/Vol] 0.6 mmol/L 0.5-2.2 [facility] Lactic Acidon 09-06-2022 Lactate [Moles/Vol] 0.6 mmol/L Normal 0.5-2.2 [facility] Comment on above: Result Comment: PERF ORMED BY:[place] [address] [address] [place], [place] [phone] MEDICAL DIRECTORNATALIA MIKE M.D. Performed By: #### L ACTIC, CBC, HEPATIC, BMP, LIPASE, CUBLD ####[address] [address] [facility] Leukocytes [#/volume] correc suzanne for nucleated erythrocytes in Blood by Automated counOrdered By: Giacomo West on 09-06-2022 WBC corrected for nucl RBC Auto (Bld) [#/Vol] 8.0 10*3/uL 3.8-11.6 [facility] Lipaseon 09-06-2022 Lipase [Catalytic activity/Vol] 20.0 U/L Normal 11.0-82.0 [facility] Comment on above: Result Comment: PERF ORMED BY:[place] [address] [place] [place], [place] [phone] MEDICAL DIRECTORNATALIA MIKE M.D. Performed By: #### L ACTIC, CBC, HEPATIC, BMP, LIPASE, CUBLD ####[address] [address] [facility] Lipase [Enzymatic activity/v olume] in Serum or PlasmaOrdered By: Giacomo West on 09-06-2022 Lipase [Catalytic activity/Vol] 20.0 U/L 11.0-82.0 [facility] Lymphocytes Auto (Bld) [#/Vo l]Ordered By: Giacomo West on 09-06-2022 Lymphocytes (Bld) [#/Vol] 2.1 10*3/uL 1.00-4.8 [facility] Lymphocytes/100 WBC Auto (Bl d)Ordered By: Giacomo West on 09-06-2022 Lymphocytes/100 WBC (Bld) 26.6 % . [facility] MCH Auto (RBC) [Entitic mass ]Ordered By: Giacomo West on 09-06-2022 MCH (RBC) [Entitic mass] 30.3 pg 24.7-34.3 [facility] MCHC Auto (RBC) [Mass/Vol]Or dered By: Giacomo West on 09-06-2022 MCHC (RBC) [Mass/Vol] 34.8 g/dL 32.0-35.0 [facility] MCV Auto (RBC) [Entitic vol] Ordered By: Giacomo West on 09-06-2022 MCV (RBC) [Entitic vol] 87.2 fL 80-100 [facility] Monocyte distribution width [Entitic volume] in Blood by AutomatedOrdered By: Giacomo West on 09-06-2022 Monocyte distribution width Auto (Bld) [Entitic vol] 19.20 % 0.00-20.00 [facility] Monocytes Auto (Bld) [#/Vol] Ordered By: Giacomo West on 09-06-2022 Monocytes (Bld) [#/Vol] 0.5 10*3/uL 0.0-0.8 [facility] Monocytes/100 WBC Auto (Bld) Ordered By: Giacomo West on 09-06-2022 Monocytes/100 WBC (Bld) 6.7 % . [facility] Neutrophils Auto (Bld) [#/Vo l]Ordered By: Giacomo West on 09-06-2022 Neutrophils (Bld) [#/Vol] 4.6 10*3/uL 1.8-7.7 [facility] Neutrophils/100 WBC Auto (Bl d)Ordered By: Giacomo West on 09-06-2022 Neutrophils/100 WBC (Bld) 57.0 % . [facility] Nitrite Test strip Ql (U)Ord ered By: Giacomo West on 09-06-2022 Nitrite Ql (U) Negative Negative [facility] No Panel InformationOrdered By: Giacomo West on 09-06-2022 Pharmacy Creatinine Clearance (Chem 145.09 [facility] > 60.0 [facility] 145.09 [facility] 0-8 [LPF] 0-8 [facility] Nucleated erythrocytes [Pres ence] in Blood by Automated countOrdered By: Giacomo West on 09-06-2022 Nucleated RBC Auto Ql (Bld) 0.0 /100{WBC} 0-0.5 [facility] Platelet mean volume Auto (B ld) [Entitic vol]Ordered By: Giacomo West on 09-06-2022 Platelet mean volume (Bld) [Entitic vol] 6.9 fL 6.3-10.7 [facility] Platelets Auto (Bld) [#/Vol] Ordered By: Giacomo West on 09-06-2022 Platelets (Bld) [#/Vol] 216 10*3/uL 150-450 [facility] Potassium [Moles/volume] in Serum or PlasmaOrdered By: Giacomo West on 09-06-2022 Potassium [Moles/Vol] 3.8 mmol/L 3.5-5.1 [facility] Protein Auto test strip (U) [Mass/Vol]Ordered By: Giacomo West on 09-06-2022 Protein (U) [Mass/Vol] Trace mg/dL Negative [facility] Protein [Mass/volume] in Ser um or PlasmaOrdered By: Giacomo West on 09-06-2022 Protein [Mass/Vol] 7.3 g/dL 6.4-8.9 [facility] RBC Auto (Bld) [#/Vol]Ordere d By: Giacomo West on 09-06-2022 RBC (Bld) [#/Vol] 4.18 10*6/uL 3.60-5.00 [facility] Serum or plasma albumin/glob ulin mass ratioOrdered By: Giacomo West on 09-06-2022 Albumin/Globulin [Mass ratio] 1.5 {ratio} [facility] Serum or plasma anion gap de terminationOrdered By: Giacomo West on 09-06-2022 Anion gap [Moles/Vol] 9.1 mmol/L 6.0-15.0 [facility] Serum or plasma non-glucuron idated bilirubin measurement (mass/volume)Ordered By: Giacomo West on 09-06-2022 Bilirubin.indirect [Mass/Vol] 0.3 mg/dL [facility] Sodium [Moles/volume] in Ser um or PlasmaOrdered By: Giacomo West on 09-06-2022 Sodium [Moles/Vol] 140 mmol/L 136-145 [facility] Specific gravity Auto test s trip (U) [Rel density]Ordered By: Giacomo West on 09-06-2022 Specific gravity (U) [Rel density] 1.028 1.001-1.03 0 [facility] Squamous epithelial cells de tection in urine sediment by light microscopyOrdered By: Giacomo West on 09-06-2022 Epithelial cells.squamous LM Ql (Urine sed) 3-4 [HPF] 0-2 [facility] Urea nitrogen [Mass/volume] in Serum or PlasmaOrdered By: Giacomo West on 09-06-2022 Urea nitrogen [Mass/Vol] 18 mg/dL 7-25 [facility] Urine Cultureon 09-06-2022 Bacteria identified Cx Nom (U) Normal [facility] Comment on above: Performed By: #### A DDONUAPLUS, UHCG, CUU ####[facility] [id number] [address] Urine bacteria detection by automated methodOrdered By: Giacomo West on 09-06-2022 Bacteria Auto Ql (U) None seen None Seen [facility] Urine clarity by refractomet ry automatedOrdered By: Giacomo West on 09-06-2022 Clarity Refractometry automated (U) Cloudy Clear [facility] Urine culture routineOrdered By: Giacomo West on 09-06-2022 Bacteria identified Cx Nom (U) 2 Days [facility] Urine glucose measurement by automated test strip (mass/volume)Ordered By: Giacomo West on 09-06-2022 Glucose Auto test strip (U) [Mass/Vol] Normal mg/dL Normal [facility] Urine hemoglobin detection b y automated test stripOrdered By: Giacomo West on 09-06-2022 Hemoglobin Auto test strip Ql (U) 3+ Negative [facility] Urine leukocyte esterase det ection by automated test stripOrdered By: Giacomo West on 09-06-2022 Leukocyte esterase Auto test strip Ql (U) 4+ Negative [facility] Urobilinogen Auto test strip (U) [Mass/Vol]Ordered By: Giacomo West on 09-06-2022 Urobilinogen (U) [Mass/Vol] Normal mg/dL Normal [facility] WBC Auto (Bld) [#/Vol]Ordere d By: Giacomoedilberto West on 09-06-2022 WBC (Bld) [#/Vol] 8.0 10*3/uL 3.8-11.6 [facility] pH Auto test strip (U)Ordere d By: Giacomo West on 09-06-2022 pH (U) 5.5 [pH] 5.0-9.0 [facility] Blood Cultureon 08-29-2022 Bacteria identified Cx Nom (Bld) NO GROWTH 5 DAYS PERFORMED BY: [facility] [address] [place] [address] PATHOLOGIST UNDERWRITING SALES REPRESENTATIVE NATALIA MIKE M.D. [facility] Comment on above: Performed By: #### C UBLD, LACTIC ####[address] [address] [facility] Bacteria identified Cx Nom (Bld) NO GROWTH 5 DAYS PERFORMED BY: [facility] [address] [place] [address] PATHOLOGIST UNDERWRITING SALES REPRESENTATIVE NATALIA MIKE M.D. [facility] Comment on above: Performed By: #### C UBLD, LACTIC ####[address] [address] [facility] CT abdomen pelvis wo conon 0 08-29-2022 CT abdomen pelvis wo con Normal [facility] Lactic Acidon 08-29-2022 Lactate [Moles/Vol] 0.9 mmol/L Normal 0.5-2.2 [facility] Comment on above: Result Comment: PERF ORMED BY:[address] [place], [place] [phone] MEDICAL DIRECTORNATALIA MIKE M.D. Performed By: #### C UBLD, LACTIC ####[address] [address] [facility] Albumin [Mass/volume] in Bod y fluidOrdered By: Gurwinder Philippe on 08-28-2022 Albumin (Body fld) [Mass/Vol] 3.9 g/dL 3.2-5.5 [facility] Alkaline phosphatase [Enzyma tic activity/volume] in Serum or PlasmaOrdered By: Gurwinder Philippe on 08-28-2022 ALP [Catalytic activity/Vol] 64 U/L 32-92 [facility] Aspartate aminotransferase [ Enzymatic activity/volume] in Serum or PlasmaOrdered By: Gurwinder Philippe on 08-28-2022 AST [Catalytic activity/Vol] 18 U/L 10-42 [facility] Automated erythrocytes count in urine sediment (number/area)Ordered By: Gurwinder Philippe on 08-28-2022 RBC Auto (Urine sed) [#/Area] Innumerable [HPF] 0-4 [facility] Automated leukocytes count i n urine sediment (number/area)Ordered By: Gurwinder Philippe on 08-28-2022 WBC Auto (Urine sed) [#/Area] 50-100 [HPF] 0-4 [facility] Bacterial blood cultureOrder ed By: Gurwinder Philippe on 08-28-2022 Bacteria identified Cx Nom (Bld) NO GROWTH 5 DAYS [facility] Bacteria identified Cx Nom (Bld) NO GROWTH 5 DAYS [facility] Basic Metabolic Panelon Anion gap [Moles/Vol] 15.3 mmol/L High 6.0-15.[address] [facility] Comment on above: Performed By: #### D IFF CBC, LIPASE, BMP, HEPATIC ####[facility] [id number] [place] [address] [facility] Calcium [Mass/Vol] 9.4 mg/dL Normal 8.2-10.2 [facility] Comment on above: Performed By: #### D IFF CBC, LIPASE, BMP, HEPATIC ####[facility] [id number] [place] [address] [place] Chloride [Moles/Vol] 102 mmol/L Normal 95-114 [facility] Comment on above: Performed By: #### D IFF CBC, LIPASE, BMP, HEPATIC ####[facility] [id number] [place] [address] [facility] CO2 [Moles/Vol] 23.8 mmol/L Normal 22.0-30.0 [facility] Comment on above: Performed By: #### D IFF CBC, LIPASE, BMP, HEPATIC ####[place] [address] [place] [id number] [facility] Creatinine [Mass/Vol] 0.72 mg/dL Normal 0.44-1.03 [facility] Comment on above: Performed By: #### D IFF CBC, LIPASE, BMP, HEPATIC ####[place] [id number] [facility] Creatinine Clr Calc Pharmacy 129.28 [facility] Comment on above: Performed By: #### D IFF CBC, LIPASE, BMP, HEPATIC ####[place] [address] Estimated GFR ( Digna > 60 [facility] Comment on above: Result Comment: GFR estimated reference range: According to KDOQI guidelines, <60 ml/min/1.73m2 is sufficient to diagnose a patient with chronic kidney disease. Performed By: #### D IFF CBC, LIPASE, BMP, HEPATIC ####[place] [id number] [facility] Estimated GFR (Non- Am > 60 [facility] Comment on above: Performed By: #### D IFF CBC, LIPASE, BMP, HEPATIC ####[place] [id number] [facility] Glucose [Mass/Vol] 183 mg/dL High 70-100 [facility] Comment on above: Result Comment: [place] om Glucose Reference Range is dependent on time and content of last meal. Glucose of more than 200 mg/dL in a nonstressed, ambulatory subject supports the diagnosis of Diabetes Mellitus. ADA recommended reference range Performed By: #### D IFF CBC, LIPASE, BMP, HEPATIC ####[place] [id number] [facility] Potassium [Moles/Vol] 4.1 mmol/L Normal 3.5-5.1 [facility] Comment on above: Performed By: #### D IFF CBC, LIPASE, BMP, HEPATIC ####[place] [id number] [facility] Sodium [Moles/Vol] 137 mmol/L Normal 136-146 [facility] Comment on above: Performed By: #### D IFF CBC, LIPASE, BMP, HEPATIC ####[facility] [id number] [place] [id number] [facility] Urea nitrogen [Mass/Vol] 16 mg/dL Normal 9-23 [facility] Comment on above: Performed By: #### D IFF CBC, LIPASE, BMP, HEPATIC ####[facility] [id number] [place] [id number] [facility] Basophils Auto (Bld) [#/Vol] Ordered By: Gurwinder Philippe on 08-28-2022 Basophils (Bld) [#/Vol] N/A [facility] Basophils/100 WBC Auto (Bld) Ordered By: Gurwinder Philippe on 08-28-2022 Basophils/100 WBC (Bld) N/A [facility] Basophils/100 WBC Manual cnt (Bld)Ordered By: Gurwinder Philippe on 08-28-2022 Basophils/100 WBC (Bld) 4 % 0-2 [facility] Bilirubin Test strip Ql (U)O rdered By: Gurwinder Philippe on 08-28-2022 Bilirubin Ql (U) Negative Negative [facility] Bilirubin.direct [Mass/volum e] in Serum or PlasmaOrdered By: Gurwinder Philippe on 08-28-2022 Bilirubin.direct [Mass/Vol] 0.2 mg/dL 0.0-0.4 [facility] Bilirubin.total [Mass/volume ] in Serum or PlasmaOrdered By: Gurwinder Philippe on 08-28-2022 Bilirubin [Mass/Vol] 0.7 mg/dL 0.3-1.2 [facility] Calcium [Mass/volume] in Ser um or PlasmaOrdered By: Gurwinder Philippe on 08-28-2022 Calcium [Mass/Vol] 9.4 mg/dL 8.2-10.2 [facility] Carbon dioxide, total [Moles /volume] in Serum or PlasmaOrdered By: Gurwinder Philippe on 08-28-2022 CO2 [Moles/Vol] 23.8 mmol/L 22.0-30.0 [facility] Chloride [Moles/volume] in S jaron or PlasmaOrdered By: Gurwinder Philippe on 08-28-2022 Chloride [Moles/Vol] 102 mmol/L 95-114 [facility] Color Auto (U)Ordered By: Suzan Philippe on 08-28-2022 Color (U) Yellow Yellow [facility] Creatinine and Glomerular fi ltration rate.predicted panel (S/P/Bld)Ordered By: Gurwinder Philippe on 08-28-2022 Creatinine [Mass/Vol] 0.72 mg/dL 0.44-1.03 [facility] Diff and CBCon 08-28-2022 Basophils/100 WBC (Bld) 4 % High 0-2 [facility] Comment on above: Performed By: #### D IFF CBC, LIPASE, BMP, HEPATIC ####[place] [address] Eosinophils/100 WBC (Bld) 5 % High 1-3 [facility] Comment on above: Performed By: #### D IFF CBC, LIPASE, BMP, HEPATIC ####[place] [address] Erythrocyte distribution width (RBC) [Ratio] 12.4 % Normal 11.9-15.3 [facility] Comment on above: Performed By: #### D IFF CBC, LIPASE, BMP, HEPATIC ####[place] [address] [place] [id number] [facility] Giant Platelet Tally 2 /100{WBC} Normal [facility] Comment on above: Performed By: #### D IFF CBC, LIPASE, BMP, HEPATIC ####[place] [address] [place] [address] [facility] Hematocrit (Bld) [Volume fraction] 38.7 % Normal 34.0-46.4 [facility] Comment on above: Performed By: #### D IFF CBC, LIPASE, BMP, HEPATIC ####[place] [address] [place] [phone] [facility] Hemoglobin (Bld) [Mass/Vol] 13.3 g/dL Normal 11.8-15.4 [facility] Comment on above: Performed By: #### D IFF CBC, LIPASE, BMP, HEPATIC ####[place] [id number] [facility] Lymphocytes/100 WBC (Bld) 13 % Low 18-42 [facility] Comment on above: Performed By: #### D IFF CBC, LIPASE, BMP, HEPATIC ####[address] MCH (RBC) [Entitic mass] 30.2 pg Normal 24.7-34.3 [facility] Comment on above: Performed By: #### D IFF CBC, LIPASE, BMP, HEPATIC ####[address] MCV (RBC) [Entitic vol] 87.7 fL Normal 80-100 [facility] Comment on above: Performed By: #### D IFF CBC, LIPASE, BMP, HEPATIC ####[address] Mean Corpuscular HGB Conc 34.4 g/dL Normal 32.0-35.0 [facility] Comment on above: Performed By: #### D IFF CBC, LIPASE, BMP, HEPATIC ####[place] [id number] [facility] Monocytes/100 WBC (Bld) 20.35 % High 0.00-20.00 [facility] Comment on above: Result Comment: For adults in ED, MDW > 20.0 may be associated with a higher risk of sepsis during the first 12 hrs of hospital admission Performed By: #### D IFF CBC, LIPASE, BMP, HEPATIC ####[place] [id number] [facility] Monocytes/100 WBC (Bld) 7 % Normal 2-11 [facility] Comment on above: Performed By: #### D IFF CBC, LIPASE, BMP, HEPATIC ####[place] [id number] [facility] Platelet Estimate Normal Normal Normal [facility] Comment on above: Performed By: #### D IFF CBC, LIPASE, BMP, HEPATIC ####[address] [address] [facility] Platelet mean volume (Bld) [Entitic vol] 7.9 fL Normal 6.3-10.7 [facility] Comment on above: Performed By: #### D IFF CBC, LIPASE, BMP, HEPATIC ####[address] [address] [facility] Platelet Morphology Normal Normal Normal [facility] Comment on above: Result Comment: PERF ORMED BY:[address] [place], [place] [phone] MEDICAL DIRECTORNATALIA MIKE M.D. Performed By: #### D IFF CBC, LIPASE, BMP, HEPATIC ####[address] [address] [facility] Platelets (Bld) [#/Vol] 223 10*3/uL Normal 150-450 [facility] Comment on above: Performed By: #### D IFF CBC, LIPASE, BMP, HEPATIC ####[address] [address] [facility] RBC (Bld) [#/Vol] 4.41 10*6/uL Normal 3.60-5.00 [facility] Comment on above: Performed By: #### D IFF CBC, LIPASE, BMP, HEPATIC ####[address] [address] [facility] RBC morphology finding Nom (Bld) Normal Normal Normal [facility] Comment on above: Performed By: #### D IFF CBC, LIPASE, BMP, HEPATIC ####[address] [address] [facility] Segmented neutrophils/100 WBC (Bld) 72 % High 50-70 [facility] Comment on above: Performed By: #### D IFF CBC, LIPASE, BMP, HEPATIC ####[address] [address] [facility] WBC (Bld) [#/Vol] 16.2 10*3/uL High 3.8-11.6 [facility] Comment on above: Performed By: #### D IFF CBC, LIPASE, BMP, HEPATIC ####[address] [address] [facility] WBC (Bld) [#/Vol] 19.7 10*3/uL High 3.8-11.6 [facility] Comment on above: Performed By: #### D IFF CBC, LIPASE, BMP, HEPATIC ####[address] [address] [facility] Dipstick and Microscopicon 0 08-28-2022 Appearance (U) Cloudy Critically abnormal Clear [facility] Comment on above: Order Comment: Name Collection Type:: Clean-Voided Midstream Performed By: #### C UU, ADDONUAPLUS ####[address] [address] [facility] Bacteria,Urine None Seen Normal None Seen [facility] Comment on above: Order Comment: Name Collection Type:: Clean-Voided Midstream Performed By: #### C UU, ADDONUAPLUS ####[address] [address] [facility] Bilirubin,Urine Negative Normal Negative [facility] Comment on above: Order Comment: Name Collection Type:: Clean-Voided Midstream Performed By: #### C UU, ADDONUAPLUS ####[address] [address] [facility] Color (U) Yellow Normal Yellow [facility] Comment on above: Order Comment: Name Collection Type:: Clean-Voided Midstream Performed By: #### C UU, ADDONUAPLUS ####[address] [address] [facility] Glucose Ql (U) Normal Normal Normal [facility] Comment on above: Order Comment: Name Collection Type:: Clean-Voided Midstream Performed By: #### C UU, ADDONUAPLUS ####[address] [address] [facility] Hyaline Casts,Urine 0-8 Normal 0-8 [facility] Comment on above: Order Comment: Name Collection Type:: Clean-Voided Midstream Result Comment: PERF ORMED BY:[place] [address] [address] [place], [place] [phone] MEDICAL RONAN MIKE M.D. Performed By: #### C UU, ADDONUAPLUS ####[address] Ketones Ql (U) Trace High Negative [facility] Comment on above: Order Comment: Name Collection Type:: Clean-Voided Midstream Performed By: #### C UU, ADDONUAPLUS ####[address] Leukocyte esterase Test strip Ql (U) 3+ High Negative [facility] Comment on above: Order Comment: Name Collection Type:: Clean-Voided Midstream Performed By: #### C UU, ADDONUAPLUS ####[address] Nitrite,Urine Negative Normal Negative [facility] Comment on above: Order Comment: Name Collection Type:: Clean-Voided Midstream Performed By: #### C UU, ADDONUAPLUS ####[address] Occult Blood,Urine 3+ High Negative [facility] Comment on above: Order Comment: Name Collection Type:: Clean-Voided Midstream Result Comment: PERF ORMED BY:[address] [place], [place] [phone] MEDICAL RONAN MIKE M.D. Performed By: #### C UU, ADDONUAPLUS ####[place] [id number] [facility] pH (U) 5.5 [pH] Normal 5.0-9.0 [facility] Comment on above: Order Comment: Name Collection Type:: Clean-Voided Midstream Performed By: #### C UU, ADDONUAPLUS ####[address] Protein (U) [Mass/Vol] 30 mg/dL High Negative Fi [facility] Comment on above: Order Comment: Name Collection Type:: Clean-Voided Midstream Performed By: #### C UU, ADDONUAPLUS ####[address] RBC,Urine Innumerable High 0-4 [facility] Comment on above: Order Comment: Name Collection Type:: Clean-Voided Midstream Performed By: #### C UU, ADDONUAPLUS ####[address] Specificy Dent,Urine 1.031 High 1.001-1.03 0 [facility] Comment on above: Order Comment: Name Collection Type:: Clean-Voided Midstream Performed By: #### C UU, ADDONUAPLUS ####[address] Squamous Epithelial Cell,Urine 3-4 High 0-2 [facility] Comment on above: Order Comment: Name Collection Type:: Clean-Voided Midstream Performed By: #### C UU, ADDONUAPLUS ####[address] Urobilinogen,Urine Normal Normal Normal [facility] Comment on above: Order Comment: Name Collection Type:: Clean-Voided Midstream Performed By: #### C UU, ADDONUAPLUS ####[place] [id number] [facility] WBC,Urine 50-100 High 0-4 [facility] Comment on above: Order Comment: Name Collection Type:: Clean-Voided Midstream Performed By: #### C UU, ADDONUAPLUS ####[address] ECG 12 lead ECGon 08-28-2022 ECG 12 lead ECG Normal [facility] Eosinophils Auto (Bld) [#/Vo l]Ordered By: Gurwinder Phiilppe on 08-28-2022 Eosinophils (Bld) [#/Vol] N/A [facility] Eosinophils/100 WBC Auto (Bl d)Ordered By: Gurwinder Philippe on 08-28-2022 Eosinophils/100 WBC (Bld) N/A [facility] Eosinophils/100 WBC Manual c nt (Bld)Ordered By: Gurwinder Philippe on 08-28-2022 Eosinophils/100 WBC (Bld) 5 % 1-3 [facility] Erythrocyte distribution wid th Auto (RBC) [Ratio]Ordered By: Gurwinder Philippe on 08-28-2022 Erythrocyte distribution width (RBC) [Ratio] 12.4 % 11.9-15.3 [facility] Estimated glomerular filtrat ion rate (GFR) non- AmericanOrdered By: Gurwinder Philippe on 08-28-2022 GFR/1.73 sq M.predicted among non-blacks MDRD (S/P/Bld) [Vol rate/Area] > 60 mL/Min [facility] Giant platelets/100 leukocyt es [Ratio] in Blood by Manual countOrdered By: Gurwinder Philippe on 08-28-2022 Giant platelets/100 WBC Manual cnt (Bld) [Ratio] 2 /100{WBC} [facility] Globulin Calc (S) [Mass/Vol] Ordered By: Gurwinder Philippe on 08-28-2022 Globulin (S) [Mass/Vol] 3.0 g/dL [facility] Glucose [Mass/volume] in Ser um or PlasmaOrdered By: Gurwinder Philippe on 08-28-2022 Glucose [Mass/Vol] 183 mg/dL 70-100 [facility] Comment on above: ADA recommended refe rence rangeRandom Glucose Reference Range is dependent on time and content of last meal. Glucose of more than 200 mg/dL in a nonstressed, ambulatory subject supports the diagnosis of Diabetes Mellitus. Hematocrit Auto (Bld) [Volum e fraction]Ordered By: Gurwinder Philippe on 08-28-2022 Hematocrit (Bld) [Volume fraction] 38.7 % 34.0-46.4 [facility] Hemoglobin [Mass/volume] in BloodOrdered By: Gurwinder Philippe on 08-28-2022 Hemoglobin (Bld) [Mass/Vol] 13.3 g/dL 11.8-15.4 [facility] Hepatic Panelon 08-28-2022 Albumin [Mass/Vol] 3.9 g/dL Normal 3.2-5.5 [facility] Comment on above: Performed By: #### D IFF CBC, LIPASE, BMP, HEPATIC ####[place] [address] [place] [address] [facility] Albumin/Globulin [Mass ratio] 1.3 {ratio} Normal [facility] Comment on above: Performed By: #### D IFF CBC, LIPASE, BMP, HEPATIC ####[place] [address] [place] [address] [facility] ALP [Catalytic activity/Vol] 64 U/L Normal 32-92 [facility] Comment on above: Performed By: #### D IFF CBC, LIPASE, BMP, HEPATIC ####[address] [address] [facility] ALT [Catalytic activity/Vol] 15 U/L Normal 10-60 [facility] Comment on above: Performed By: #### D IFF CBC, LIPASE, BMP, HEPATIC ####[address] [address] [facility] AST [Catalytic activity/Vol] 18 U/L Normal 10-42 [facility] Comment on above: Performed By: #### D IFF CBC, LIPASE, BMP, HEPATIC ####[address] [address] [facility] Bilirubin [Mass/Vol] 0.7 mg/dL Normal 0.3-1.2 [facility] Comment on above: Performed By: #### D IFF CBC, LIPASE, BMP, HEPATIC ####[address] [address] [facility] Bilirubin,Indirect 0.5 mg/dL Normal [facility] Comment on above: Performed By: #### D IFF CBC, LIPASE, BMP, HEPATIC ####[address] [address] [facility] Bilirubin.indirect [Mass/Vol] 0.2 mg/dL Normal 0.0-0.4 [facility] Comment on above: Performed By: #### D IFF CBC, LIPASE, BMP, HEPATIC ####[facility] [place] [address] [facility] Globulin (S) [Mass/Vol] 3.0 g/dL Normal [facility] Comment on above: Performed By: #### D IFF CBC, LIPASE, BMP, HEPATIC ####[address] [place] [address] [facility] Protein [Mass/Vol] 6.9 g/dL Normal 6.1-7.9 [facility] Comment on above: Performed By: #### D IFF CBC, LIPASE, BMP, HEPATIC ####[address] [place] [address] [facility] Ketones Auto test strip (U) [Mass/Vol]Ordered By: Gurwinder Philippe on 08-28-2022 Ketones (U) [Mass/Vol] Trace Negative [facility] Laboratory - Chemistry and C hemistry - challengeOrdered By: Gurwinder Philippe on 08-28-2022 Lipase [Catalytic activity/Vol] 40.0 U/L [facility] Laboratory - UrinalysisOrder ed By: Gurwinder Philippe on 08-28-2022 Hyaline casts LM Ql (Urine sed) 0-8 [LPF] 0-8 [facility] Leukocytes [#/volume] correc suzanne for nucleated erythrocytes in Blood by Automated counOrdered By: Gurwinder Philippe on 08-28-2022 WBC corrected for nucl RBC Auto (Bld) [#/Vol] 16.2 10*3/uL 3.8-11.6 [facility] Lipaseon 08-28-2022 Lipase [Catalytic activity/Vol] 40.0 U/L Normal [facility] Comment on above: Result Comment: PERF ORMED BY:[id number] [place], [place] [id number] MEDICAL DIRECTORNATALIA MIKE M.D. Performed By: #### D IFF CBC, LIPASE, BMP, HEPATIC ####[address] [place] [address] [facility] Lymphocytes Auto (Bld) [#/Vo l]Ordered By: Gurwinder Philippe on 08-28-2022 Lymphocytes (Bld) [#/Vol] N/A [facility] Lymphocytes/100 WBC Auto (Bl d)Ordered By: Gurwinder Philippe on 08-28-2022 Lymphocytes/100 WBC (Bld) N/A [facility] Lymphocytes/100 WBC Manual c nt (Bld)Ordered By: Gurwinder Philippe on 08-28-2022 Lymphocytes/100 WBC (Bld) 13 % 18-42 [facility] MCH Auto (RBC) [Entitic mass ]Ordered By: Gurwinder Philippe on 08-28-2022 MCH (RBC) [Entitic mass] 30.2 pg 24.7-34.3 [facility] MCHC Auto (RBC) [Mass/Vol]Or dered By: Gurwinder Philippe on 08-28-2022 MCHC (RBC) [Mass/Vol] 34.4 g/dL 32.0-35.0 [facility] MCV Auto (RBC) [Entitic vol] Ordered By: Gurwinder Philippe on 08-28-2022 MCV (RBC) [Entitic vol] 87.7 fL 80-100 [facility] Monocyte distribution width [Entitic volume] in Blood by AutomatedOrdered By: Gurwinder Philippe on 08-28-2022 Monocyte distribution width Auto (Bld) [Entitic vol] 20.35 % 0.00-20.00 [facility] Comment on above: For adults in ED, W > 20.0 may be associated with a higher risk of sepsis during the first 12 hrs of hospital admission Monocytes Auto (Bld) [#/Vol] Ordered By: Gurwinder Philippe on 08-28-2022 Monocytes (Bld) [#/Vol] N/A [facility] Monocytes/100 WBC Auto (Bld) Ordered By: Gurwinder Philippe on 08-28-2022 Monocytes/100 WBC (Bld) N/A [facility] Monocytes/100 WBC Manual cnt (Bld)Ordered By: Gurwinder Philippe on 08-28-2022 Monocytes/100 WBC (Bld) 7 % 2-11 [facility] Neutrophils Auto (Bld) [#/Vo l]Ordered By: Gurwinder Philippe on 08-28-2022 Neutrophils (Bld) [#/Vol] N/A [facility] Neutrophils/100 WBC Auto (Bl d)Ordered By: Gurwinder Philippe on 08-28-2022 Neutrophils/100 WBC (Bld) N/A [facility] Nitrite Test strip Ql (U)Ord ered By: Gurwinder Philippe on 08-28-2022 Nitrite Ql (U) Negative Negative [facility] No Panel InformationOrdered By: Gurwinder Philippe on 08-28-2022 Estimated GFR () > 60 mL/Min [facility] Comment on above: GFR estimated refere nce range: According to KDOQI guidelines, <60 ml/min/1.73m2 is sufficient to diagnose a patient with chronic kidney disease. Pharmacy Creatinine Clearance (Chem 129.28 [facility] > 60 mL/Min [facility] 40.0 U/L 22-51 [facility] 129.28 [facility] 0-8 [LPF] 0-8 [facility] Nucleated erythrocytes [Pres ence] in Blood by Automated countOrdered By: Gurwinder Philippe on 08-28-2022 Nucleated RBC Auto Ql (Bld) N/A [facility] Platelet adequacy [Presence] in Blood by Light microscopyOrdered By: Gurwinder Philippe on 08-28-2022 Platelets LM Ql (Bld) Normal Normal [facility] Platelet mean volume Auto (B ld) [Entitic vol]Ordered By: Gurwinder Philippe on 08-28-2022 Platelet mean volume (Bld) [Entitic vol] 7.9 fL 6.3-10.7 [facility] Platelet morphology finding [Identifier] in BloodOrdered By: Gurwinder Philippe on 08-28-2022 Platelet morphology finding Nom (Bld) Normal Normal [facility] Platelets Auto (Bld) [#/Vol] Ordered By: Gurwinder Philippe on 08-28-2022 Platelets (Bld) [#/Vol] 223 10*3/uL 150-450 [facility] Potassium [Moles/volume] in Serum or PlasmaOrdered By: Gurwinder Philippe on 08-28-2022 Potassium [Moles/Vol] 4.1 mmol/L 3.5-5.1 [facility] Protein Auto test strip (U) [Mass/Vol]Ordered By: Gurwinder Philippe on 08-28-2022 Protein (U) [Mass/Vol] 30 mg/dL Negative [facility] Protein [Mass/volume] in Ser um or PlasmaOrdered By: Gurwinder Philippe on 08-28-2022 Protein [Mass/Vol] 6.9 g/dL 6.1-7.9 [facility] RBC Auto (Bld) [#/Vol]Ordere d By: Gurwinder Philippe on 08-28-2022 RBC (Bld) [#/Vol] 4.41 10*6/uL 3.60-5.00 [facility] RBC morphologyOrdered By: Suzan Philippe on 08-28-2022 RBC morphology finding Nom (Bld) Normal Normal [facility] Segmented neutrophils/100 WB C Manual cnt (Bld)Ordered By: Gurwinder Philippe on 08-28-2022 Segmented neutrophils/100 WBC (Bld) 72 % 50-70 [facility] Serum or plasma alanine slaughter otransferase measurement without P-5'-P (enzymatic activiOrdered By: Gurwinder Philippe on 08-28-2022 ALT No additional P-5'-P [Catalytic activity/Vol] 15 U/L 10-60 [facility] Serum or plasma albumin/glob ulin mass ratioOrdered By: Gurwinder Philippe on 08-28-2022 Albumin/Globulin [Mass ratio] 1.3 {ratio} [facility] Serum or plasma anion gap de terminationOrdered By: Gurwinder Philippe on 08-28-2022 Anion gap [Moles/Vol] 15.3 mmol/L 6.0-15.[address] [facility] Serum or plasma creatinine m easurement with calculation of estimated glomerular filtrOrdered By: Gurwinder Philippe on 08-28-2022 Creatinine and Glomerular filtration rate.predicted panel (S/P/Bld) 0.72 mg/dL 0.44-1.03 [facility] Serum or plasma non-glucuron idated bilirubin measurement (mass/volume)Ordered By: Gurwinder Philippe on 08-28-2022 Bilirubin.indirect [Mass/Vol] 0.5 mg/dL [facility] Sodium [Moles/volume] in Ser um or PlasmaOrdered By: Gurwinder Philippe on 08-28-2022 Sodium [Moles/Vol] 137 mmol/L 136-146 [facility] Specific gravity Auto test s trip (U) [Rel density]Ordered By: Gurwinder Philippe on 08-28-2022 Specific gravity (U) [Rel density] 1.031 1.001-1.03 0 [facility] Squamous epithelial cells de tection in urine sediment by light microscopyOrdered By: Gurwinder Philippe on 08-28-2022 Epithelial cells.squamous LM Ql (Urine sed) 3-4 [HPF] 0-2 [facility] Urea nitrogen [Mass/volume] in Serum or PlasmaOrdered By: Gurwinder Philippe on 08-28-2022 Urea nitrogen [Mass/Vol] 16 mg/dL 9-23 [facility] Urine Cultureon 08-28-2022 Bacteria identified Cx Nom (U) Normal [facility] Comment on above: Performed By: #### C UU, ADDBOLIVARUAPLUS ####[facility] [id number] [facility] Urine bacteria detection by automated methodOrdered By: Gurwinder Philippe on 08-28-2022 Bacteria Auto Ql (U) None seen None Seen [facility] Urine clarity by refractomet ry automatedOrdered By: Gurwinder Philippe on 08-28-2022 Clarity Refractometry automated (U) Cloudy Clear [facility] Urine culture routineOrdered By: Gurwinder Philippe on 08-28-2022 Bacteria identified Cx Nom (U) 2 Days [facility] Bacteria identified Cx Nom (U) 2 Days [facility] Urine glucose measurement by automated test strip (mass/volume)Ordered By: Gurwinder Philippe on 08-28-2022 Glucose Auto test strip (U) [Mass/Vol] Normal mg/dL Normal [facility] Urine hemoglobin detection b y automated test stripOrdered By: Gurwinder Philippe on 08-28-2022 Hemoglobin Auto test strip Ql (U) 3+ Negative [facility] Urine lactic acid measuremen tOrdered By: Gurwinder Philippe on 08-28-2022 Lactate (U) [Moles/Vol] 0.9 mmol/L 0.5-2.2 [facility] Urine leukocyte esterase det ection by automated test stripOrdered By: Gurwinder Philippe on 08-28-2022 Leukocyte esterase Auto test strip Ql (U) 3+ Negative [facility] Urobilinogen Auto test strip (U) [Mass/Vol]Ordered By: Gurwinder Philippe on 08-28-2022 Urobilinogen (U) [Mass/Vol] Normal mg/dL Normal [facility] WBC Auto (Bld) [#/Vol]Ordere d By: Gurwinder Philippe on 08-28-2022 WBC (Bld) [#/Vol] 19.7 10*3/uL 3.8-11.6 [facility] pH Auto test strip (U)Ordere d By: Gurwinder Philippe on 08-28-2022 pH (U) 5.5 [pH] 5.0-9.0 [facility] CBC With Platelet and Differ entialon 08-25-2022 Basophils (Bld) [#/Vol] 0.1 10*3/uL Normal 0.0-0.2 [facility] Comment on above: Performed By: #### P GLU #### [facility] [address] [place] [address] Basophils/100 WBC (Bld) 1.0 % Normal [facility] Comment on above: Performed By: #### P GLU #### [facility] [address] [place] [address] Eosinophils (Bld) [#/Vol] 0.4 10*3/uL Normal 0.0-0.7 [facility] Comment on above: Performed By: #### P GLU #### [facility] [address] [place] [address] Eosinophils/100 WBC (Bld) 3.9 % Normal [facility] Comment on above: Performed By: #### P GLU #### [facility] [address] [place] [address] Erythrocyte distribution width (RBC) [Ratio] 12.6 % Normal 11.5-14.5 [facility] Comment on above: Performed By: #### P GLU #### [facility] [address] [place] [address] Hematocrit (Bld) [Volume fraction] 41.0 % Normal 37.0-47.0 [facility] Comment on above: Performed By: #### P GLU #### [facility] [address] [place] [address] Hemoglobin (Bld) [Mass/Vol] 14.3 g/dL Normal 12.0-16.0 [facility] Comment on above: Performed By: #### P GLU #### [facility] [address] [place] [address] Lymphocytes (Bld) [#/Vol] 2.0 10*3/uL Normal 1.0-4.8 [facility] Comment on above: Performed By: #### P GLU #### [facility] [address] [place] [address] Lymphocytes/100 WBC (Bld) 20.6 % Normal [facility] Comment on above: Performed By: #### P GLU #### [facility] [address] [place] [address] MCH (RBC) [Entitic mass] 30.8 pg Normal 27.0-31.3 [facility] Comment on above: Performed By: #### P GLU #### [facility] [address] [place] [address] MCHC 34.8 % Normal 33.0-37.0 [facility] Comment on above: Performed By: #### P GLU #### [facility] [address] [place] [address] MCV (RBC) [Entitic vol] 88.7 fL Normal 79.4-94.8 [facility] Comment on above: Performed By: #### P GLU #### [facility] [address] [place] [address] Monocytes (Bld) [#/Vol] 0.6 10*3/uL Normal 0.2-0.8 [facility] Comment on above: Performed By: #### P GLU #### [facility] [address] [place] [address] Monocytes/100 WBC (Bld) 6.6 % Normal [facility] Comment on above: Performed By: #### P GLU #### [facility] [address] [place] [address] Neutrophils (Bld) [#/Vol] 6.6 10*3/uL Critically high 1.4-6.5 [facility] Comment on above: Performed By: #### P GLU #### [facility] [address] [place] [address] Neutrophils/100 WBC (Bld) 67.9 % Normal [facility] Comment on above: Performed By: #### P GLU #### [facility] [address] [place] [address] Platelets (Bld) [#/Vol] 229 10*3/uL Normal 130-400 [facility] Comment on above: Performed By: #### P GLU #### [facility] [address] [place] [address] RBC (Bld) [#/Vol] 4.63 10*6/uL Normal 4.20-5.40 [facility] Comment on above: Performed By: #### P GLU #### [facility] [address] [place] [address] WBC (Bld) [#/Vol] 9.7 10*3/uL Normal 4.8-10.8 [facility] Comment on above: Performed By: #### P GLU #### [facility] [address] [place] [address] Comprehensive Metabolic Pane loco 08-25-2022 Albumin [Mass/Vol] 4.5 g/dL Normal 3.5-4.6 [facility] Comment on above: Performed By: #### U AR #### [facility] [address] [place] [address] ALP [Catalytic activity/Vol] 87 U/L Normal 40-130 [facility] Comment on above: Performed By: #### U AR #### [facility] [address] [place] [address] ALT [Catalytic activity/Vol] 14 U/L Normal 0-33 [facility] Comment on above: Result Comment: Spec imen hemolysis has exceeded the interference as defined by Mariah. Result may be affected. Suggest recollection if clinically indicated. Performed By: #### U AR #### [facility] [address] [place] [address] Anion gap [Moles/Vol] 13 mmol/L Normal 9-15 [facility] Comment on above: Performed By: #### U AR #### [facility] [address] [place] [address] AST [Catalytic activity/Vol] 23 U/L Normal 0-35 [facility] Comment on above: Result Comment: Spec imen hemolysis has exceeded the interference as defined by Mariah. Value may be falsely increased. Suggest recollection if clinically indicated. Performed By: #### U AR #### [facility] [address] [place] [address] Bilirubin [Mass/Vol] 0.4 mg/dL Normal 0.2-0.7 [facility] Comment on above: Performed By: #### U AR #### [facility] [address] [place] [address] Calcium [Mass/Vol] 9.6 mg/dL Normal 8.5-9.9 [facility] Comment on above: Performed By: #### U AR #### [facility] [address] [place] [address] Chloride [Moles/Vol] 104 mmol/L Normal 95-107 [facility] Comment on above: Performed By: #### U AR #### [facility] [address] [place] [address] CO2 [Moles/Vol] 23 mmol/L Normal 20-31 [facility] Comment on above: Performed By: #### U AR #### [facility] [address] [place] [address] Creatinine [Mass/Vol] 0.54 mg/dL Normal 0.50-0.90 [facility] Comment on above: Performed By: #### U AR #### [facility] [address] [place] [address] GFR >60.0 Normal >60 [facility] Comment on above: Result Comment: Pedi atric [...] secretion. Performed By: #### U AR #### [facility] [address] [place] [address] Globulin (S) [Mass/Vol] 3.4 g/dL Normal 2.3-3.5 [facility] Comment on above: Performed By: #### U AR #### [facility] [address] [place] [address] Glucose [Mass/Vol] 96 mg/dL Normal 70-99 [facility] Comment on above: Performed By: #### U AR #### [facility] [address] [place] [address] Potassium [Moles/Vol] 4.1 mmol/L Normal 3.4-4.9 [facility] Comment on above: Result Comment: Spec imen hemolysis has exceeded the interference as defined by Mariah. Value may be falsely increased. Suggest recollection if clinically indicated. Performed By: #### U AR #### [facility] [address] [place] [address] Protein [Mass/Vol] 7.9 g/dL Normal 6.3-8.0 [facility] Comment on above: Performed By: #### U AR #### [facility] [address] [place] [address] Sodium [Moles/Vol] 140 mmol/L Normal 135-144 [facility] Comment on above: Performed By: #### U AR #### [facility] [address] [place] [address] Urea nitrogen [Mass/Vol] 9 mg/dL Normal 6-20 [facility] Comment on above: Performed By: #### U AR #### [facility] [address] [place] [address] Lactic Acidon 08-25-2022 Lactate [Moles/Vol] 1.6 mmol/L Normal 0.5-2.2 [facility] Comment on above: Performed By: #### C MP #### [facility] [address] [place] [address] Urinalysis, reflex to micros copicon 08-25-2022 Bilirubin Ql (U) Negative Normal Negative [facility] Comment on above: Performed By: #### U AR #### [facility] [address] [place] [address] Clarity (U) Clear Normal Clear [facility] Comment on above: Performed By: #### U AR #### [facility] [address] [place] [address] Color (U) RED Abnormal Straw/Mower [facility] Comment on above: Performed By: #### U AR #### [facility] [address] [place] [address] Glucose Ql (U) Negative Normal Negative [facility] Comment on above: Performed By: #### U AR #### [facility] [address] [place] [address] Hemoglobin Ql (U) LARGE Abnormal Negative [facility] Comment on above: Performed By: #### U AR #### [facility] [address] [place] [address] Ketones Ql (U) Negative Normal Negative [facility] Comment on above: Performed By: #### U AR #### [facility] [address] [place] [address] Leukocyte esterase Test strip Ql (U) LARGE Abnormal Negative [facility] Comment on above: Performed By: #### U AR #### [facility] [address] [place] [address] Nitrite Ql (U) Negative Normal Negative [facility] Comment on above: Performed By: #### U AR #### [facility] [address] [place] [address] pH (U) 5.5 [pH] Normal 5.0-9.0 [facility] Comment on above: Performed By: #### U AR #### [facility] [address] [place] [address] Protein Ql (U) Negative Normal Negative [facility] Comment on above: Performed By: #### U AR #### [facility] [address] [place] [address] Specific gravity (U) [Rel density] 1.008 Normal 1.005-1.03 [facility] Comment on above: Performed By: #### U AR #### [facility] [address] [place] [address] Urobilinogen Qn (U) 0.2 {Diaz'U}/dL Normal < 2.0 [facility] Comment on above: Performed By: #### U AR #### [facility] [address] [place] [address] Urine Microscopicon 08-25-19 23 Bacteria LM.HPF (Urine sed) [#/Area] Negative Normal Negative [facility] Comment on above: Performed By: #### P GLU #### [facility] [address] [place] [address] Urine Epithelial Cells Auto 6-10 Normal 0-5 [facility] Comment on above: Performed By: #### P GLU #### [facility] [address] [place] [address] Urine Hyaline Casts Auto 1-3 Normal 0-5 [facility] Comment on above: Performed By: #### P GLU #### [facility] [address] [place] [address] Urine RBC Auto >100 Critically high 0-5 [facility] Comment on above: Performed By: #### P GLU #### [facility] [address] [place] [address] Urine WBC Auto 20-50 Abnormal 0-5 [facility] Comment on above: Performed By: #### P GLU #### [facility] [address] [place] [address] CBC with Auto Differentialon 08-24-2022 Basophils (Bld) [#/Vol] 0.1 10*3/uL 0.0 - 0.2 K/uL [facility] Basophils/100 WBC (Bld) 1.0 % [facility] Eosinophils (Bld) [#/Vol] 0.4 10*3/uL 0.0 - 0.7 K/uL [facility] Eosinophils/100 WBC (Bld) 3.9 % [facility] Hematocrit (Bld) [Volume fraction] 41.0 % 37.0 - 47.0 % [facility] Hemoglobin (Bld) [Mass/Vol] 14.3 g/dL 12.0 - 16.0 g/dL [facility] Interpretation and review of laboratory results Abnormal [facility] Lymphocytes (Bld) [#/Vol] 2.0 10*3/uL 1.0 - 4.8 K/uL [facility] Lymphocytes/100 WBC (Bld) 20.6 % [facility] MCH (RBC) [Entitic mass] 30.8 pg 27.0 - 31.3 pg [facility] MCHC (RBC) [Mass/Vol] 34.8 % 33.0 - 37.0 % [facility] MCV (RBC) [Entitic vol] 88.7 fL 79.4 - 94.8 fL [facility] Monocytes (Bld) [#/Vol] 0.6 10*3/uL 0.2 - 0.8 K/uL [facility] Monocytes/100 WBC (Bld) 6.6 % [facility] Neutrophils Absolute 6.6 K/uL High 1.4 - 6 .5 K/uL [facility] Neutrophils/100 WBC (Bld) 67.9 % [facility] Platelet distribution width (Bld) [Ratio] 12.6 % 11.5 - 14.5 % [facility] Platelets (Bld) [#/Vol] 229 10*3/uL 130 - 400 K/uL [facility] RBC (Bld) [#/Vol] 4.63 10*6/uL [facility] WBC (Bld) [#/Vol] 9.7 10*3/uL 4.8 - 10.8 K/uL [facility] CMPon 08-24-2022 Albumin [Mass/Vol] 4.5 g/dL 3.5 - 4.6 g/dL [facility] ALP (Bld) [Catalytic activity/Vol] 87 U/L 40 - 130 U/L [facility] ALT [Catalytic activity/Vol] 14 U/L 0 - 33 U/L [facility] Comment on above: Specimen hemolysis h as exceeded the interference as defined by Mariah. Result may be affected. Suggest recollection if clinically indicated. Anion gap [Moles/Vol] 13 mmol/L [facility] AST [Catalytic activity/Vol] 23 U/L 0 - 35 U/L [facility] Comment on above: Specimen hemolysis h as exceeded the interference as defined by Mariah. Value may be falsely increased. Suggest recollection if clinically indicated. Bilirubin [Mass/Vol] 0.4 mg/dL 0.2 - 0 .7 mg/dL [facility] Calcium [Mass/Vol] 9.6 mg/dL 8.5 - 9.9 mg/dL [facility] Chloride [Moles/Vol] 104 mmol/L [facility] CO2 [Moles/Vol] 23 mmol/L [facility] Creatinine [Mass/Vol] 0.54 mg/dL 0.50 - 0.90 mg/dL [facility] GFR/1.73 sq M.predicted MDRD (S/P/Bld) [Vol rate/Area] 60 - PINF [facility] Comment on above: Pediatric calculator link [email or web address]://www.kidney.org/professionals/kdoqi/gfr_calculatorped [...] [Mass/Vol] 3.4 g/dL 2.3 - 3.5 g/dL [facility] Glucose [Mass/Vol] 96 mg/dL 70 - 99 mg/dL [facility] Potassium [Moles/Vol] 4.1 mmol/L [facility] Comment on above: Specimen hemolysis h as exceeded the interference as defined by Mariah. Value may be falsely increased. Suggest recollection if clinically indicated. Protein [Mass/Vol] 7.9 g/dL 6.3 - 8.0 g/dL [facility] Sodium [Moles/Vol] 140 mmol/L [facility] Urea nitrogen (BldV) [Mass/Vol] 9 mg/dL 6 - 20 mg/dL [facility] Lactic Acidon 08-24-2022 Lactate [Moles/Vol] 1.6 mmol/L 0.5 - 2. 2 mmol/L [facility] Microscopic Urinalysison Bacteria, UA Negative Negative /HPF [facility] Epithelial Cells, UA 6-10 [facility] Hyaline Casts, UA 1-3 [facility] Interpretation and review of laboratory results Abnormal [facility] RBC (U) [#/Vol] /uL High [facility] WBC, UA 20-50 Abnormal [facility] Urinalysison 08-24-2022 Bilirubin Urine Negative Negative [facility] Blood, Urine LARGE Abnormal Negative [facility] Clarity, UA Clear Clear [facility] Color, UA RED Abnormal Straw/Mower ow [facility] Glucose, Ur Negative Negative mg/dL [facility] Interpretation and review of laboratory results Abnormal [facility] Ketones Ql (U) Negative Negative mg/dL [facility] Leukocyte esterase Test strip Ql (U) LARGE Abnormal Negative [facility] Nitrite, Urine Negative Negative [facility] pH, UA 5.5 5.0 - 9.0 [facility] Protein, UA Negative Negative mg/dL [facility] Specific Dent, UA 1.008 1.005 - 1.030 [facility] Urobilinogen, Urine 0.2 NINF [facility] Bacterial blood cultureOrder ed By: Tristan Pyle on 08-23-2022 Bacteria identified Cx Nom (Bld) NO GROWTH 5 DAYS [facility] Alkaline phosphatase [Enzyma tic activity/volume] in Serum or PlasmaOrdered By: Tristan Pyle on 08-22-2022 ALP [Catalytic activity/Vol] 68 U/L 32-92 [facility] Aspartate aminotransferase [ Enzymatic activity/volume] in Serum or PlasmaOrdered By: Tristan Pyle on 08-22-2022 AST [Catalytic activity/Vol] 18 U/L 10-42 [facility] Automated erythrocytes count in urine sediment (number/area)Ordered By: Tristan Pyle on 08-22-2022 RBC Auto (Urine sed) [#/Area] 1-2 [HPF] 0-4 [facility] Automated leukocytes count i n urine sediment (number/area)Ordered By: Tristan Pyle on 08-22-2022 WBC Auto (Urine sed) [#/Area] 10-19 [HPF] 0-4 [facility] Bacterial blood cultureOrder ed By: Tristan Pyle on 08-22-2022 Bacteria identified Cx Nom (Bld) NO GROWTH 5 DAYS [facility] Basophils Auto (Bld) [#/Vol] Ordered By: Tristan Pyle on 08-22-2022 Basophils (Bld) [#/Vol] 0.1 10*3/uL 0.0-0.2 [facility] Basophils/100 WBC Auto (Bld) Ordered By: Tristan Pyle on 08-22-2022 Basophils/100 WBC (Bld) 0.6 % . [facility] Bilirubin Test strip Ql (U)O rdered By: Tristan Pyle on 08-22-2022 Bilirubin Ql (U) Negative Negative [facility] Bilirubin.direct [Mass/volum e] in Serum or PlasmaOrdered By: Tristan Pyle on 08-22-2022 Bilirubin.direct [Mass/Vol] 0.1 mg/dL 0.0-0.4 [facility] Bilirubin.total [Mass/volume ] in Serum or PlasmaOrdered By: Tristan Pyle on 08-22-2022 Bilirubin [Mass/Vol] 0.4 mg/dL 0.3-1.2 [facility] Body fluid albumin measureme nt (mass/volume)Ordered By: Tristan Pyle on 08-22-2022 Albumin (Body fld) [Mass/Vol] 4.0 g/dL 3.2-5.5 [facility] Calcium [Mass/volume] in Ser um or PlasmaOrdered By: Tristan Pyle on 08-22-2022 Calcium [Mass/Vol] 9.2 mg/dL 8.2-10.2 [facility] Carbon dioxide, total [Moles /volume] in Serum or PlasmaOrdered By: Tristan Pyle on 08-22-2022 CO2 [Moles/Vol] 23.5 mmol/L 22.0-30.0 [facility] Chloride [Moles/volume] in S jaron or PlasmaOrdered By: Tristan Pyle on 08-22-2022 Chloride [Moles/Vol] 106 mmol/L 95-114 [facility] Color Auto (U)Ordered By: Olamide Pyle on 08-22-2022 Color (U) [place] Yellow [facility] Creatinine and Glomerular fi ltration rate.predicted panel (S/P/Bld)Ordered By: Tristan Pyle on 08-22-2022 Creatinine [Mass/Vol] 0.67 mg/dL 0.44-1.03 [facility] Eosinophils Auto (Bld) [#/Vo l]Ordered By: Tristan Pyle on 08-22-2022 Eosinophils (Bld) [#/Vol] 0.5 10*3/uL 0.0-0.45 [facility] Eosinophils/100 WBC Auto (Bl d)Ordered By: Tristan Pyle on 08-22-2022 Eosinophils/100 WBC (Bld) 5.6 % . [facility] Erythrocyte distribution wid th Auto (RBC) [Ratio]Ordered By: Tristan Pyle on 08-22-2022 Erythrocyte distribution width (RBC) [Ratio] 12.8 % 11.9-15.3 [facility] Estimated glomerular filtrat ion rate (GFR) non- AmericanOrdered By: Tristan Pyle on 08-22-2022 GFR/1.73 sq M.predicted among non-blacks MDRD (S/P/Bld) [Vol rate/Area] > 60 mL/Min [facility] Globulin Calc (S) [Mass/Vol] Ordered By: Tristan Pyle on 08-22-2022 Globulin (S) [Mass/Vol] 3.5 g/dL [facility] Glucose [Mass/volume] in Ser um or PlasmaOrdered By: Tristan Pyle on 08-22-2022 Glucose [Mass/Vol] 179 mg/dL 70-100 [facility] Comment on above: ADA recommended refe rence rangeRandom Glucose Reference Range is dependent on time and content of last meal. Glucose of more than 200 mg/dL in a nonstressed, ambulatory subject supports the diagnosis of Diabetes Mellitus. HCG ( test) IA.rapi d Ql (U)Ordered By: Tristan Pyle on 08-22-2022 HCG ( test) Ql (U) Negative [facility] Hematocrit Auto (Bld) [Volum e fraction]Ordered By: Tristan Pyle on 08-22-2022 Hematocrit (Bld) [Volume fraction] 40.7 % 34.0-46.4 [facility] Hemoglobin [Mass/volume] in BloodOrdered By: Tristan Pyle on 08-22-2022 Hemoglobin (Bld) [Mass/Vol] 14.0 g/dL 11.8-15.4 [facility] Ketones Auto test strip (U) [Mass/Vol]Ordered By: Tristan Pyle on 08-22-2022 Ketones (U) [Mass/Vol] Negative Negative Fi [facility] - Chemistry and C hemistry - challengeOrdered By: Tristan Pyle on 08-22-2022 Lipase [Catalytic activity/Vol] 39.0 U/L 22-51 [facility] Laboratory - UrinalysisOrder ed By: Tristan Pyle on 08-22-2022 Hyaline casts LM Ql (Urine sed) 0-8 [LPF] 0-8 [facility] Leukocytes [#/volume] correc suzanne for nucleated erythrocytes in Blood by Automated counOrdered By: Tristan Pyle on 08-22-2022 WBC corrected for nucl RBC Auto (Bld) [#/Vol] 9.6 10*3/uL 3.8-11.6 [facility] Lymphocytes Auto (Bld) [#/Vo l]Ordered By: Tristan Pyle on 08-22-2022 Lymphocytes (Bld) [#/Vol] 2.1 10*3/uL 1.00-4.8 [facility] Lymphocytes/100 WBC Auto (Bl d)Ordered By: Tristan Pyle on 08-22-2022 Lymphocytes/100 WBC (Bld) 22.4 % . [facility] MCH Auto (RBC) [Entitic mass ]Ordered By: Tristan Pyle on 08-22-2022 MCH (RBC) [Entitic mass] 30.1 pg 24.7-34.3 [facility] MCHC Auto (RBC) [Mass/Vol]Or dered By: Tristan Pyle on 08-22-2022 MCHC (RBC) [Mass/Vol] 34.4 g/dL 32.0-35.0 [facility] MCV Auto (RBC) [Entitic vol] Ordered By: Tristan Pyle on 08-22-2022 MCV (RBC) [Entitic vol] 87.4 fL 80-100 [facility] Monocyte distribution width [Entitic volume] in Blood by AutomatedOrdered By: Tristan Pyle on 08-22-2022 Monocyte distribution width Auto (Bld) [Entitic vol] 18.80 % 0.00-20.00 [facility] Monocytes Auto (Bld) [#/Vol] Ordered By: Tristan Pyle on 08-22-2022 Monocytes (Bld) [#/Vol] 0.6 10*3/uL 0.0-0.8 [facility] Monocytes/100 WBC Auto (Bld) Ordered By: Tristan Pyle on 08-22-2022 Monocytes/100 WBC (Bld) 6.2 % . [facility] Neutrophils Auto (Bld) [#/Vo l]Ordered By: Tristan Pyle on 08-22-2022 Neutrophils (Bld) [#/Vol] 6.2 10*3/uL 1.8-7.7 [facility] Neutrophils/100 WBC Auto (Bl d)Ordered By: Tristan Pyle on 08-22-2022 Neutrophils/100 WBC (Bld) 65.2 % . [facility] Nitrite Test strip Ql (U)Ord ered By: Tristan Pyle on 08-22-2022 Nitrite Ql (U) Negative Negative [facility] No Panel InformationOrdered By: Tristan Pyle on 08-22-2022 Estimated GFR () > 60 mL/Min [facility] Comment on above: GFR estimated refere nce range: According to KDOQI guidelines, <60 ml/min/1.73m2 is sufficient to diagnose a patient with chronic kidney disease. Pharmacy Creatinine Clearance (Chem 138.57 [facility] > 60 mL/Min [facility] 39.0 U/L 22-51 [facility] 138.57 [facility] 0-8 [LPF] 0-8 [facility] Nucleated erythrocytes [Pres ence] in Blood by Automated countOrdered By: Tristan Pyle on 08-22-2022 Nucleated RBC Auto Ql (Bld) 0.2 /100{WBC} 0-0.5 [facility] Platelet mean volume Auto (B ld) [Entitic vol]Ordered By: Tristan Pyle on 08-22-2022 Platelet mean volume (Bld) [Entitic vol] 7.7 fL 6.3-10.7 [facility] Platelets Auto (Bld) [#/Vol] Ordered By: Tristan Pyle on 08-22-2022 Platelets (Bld) [#/Vol] 236 10*3/uL 150-450 [facility] Potassium [Moles/volume] in Serum or PlasmaOrdered By: Tristan Pyle on 08-22-2022 Potassium [Moles/Vol] 3.8 mmol/L 3.5-5.1 [facility] Protein Auto test strip (U) [Mass/Vol]Ordered By: Tristan Pyle on 08-22-2022 Protein (U) [Mass/Vol] Trace mg/dL Negative [facility] Protein [Mass/volume] in Ser um or PlasmaOrdered By: Tristan Pyle on 08-22-2022 Protein [Mass/Vol] 7.5 g/dL 6.1-7.9 [facility] RBC Auto (Bld) [#/Vol]Ordere d By: Tristan Pyle on 08-22-2022 RBC (Bld) [#/Vol] 4.66 10*6/uL 3.60-5.00 [facility] Serum or plasma alanine slaughter otransferase measurement without P-5'-P (enzymatic activiOrdered By: Tristan Pyle on 08-22-2022 ALT No additional P-5'-P [Catalytic activity/Vol] 17 U/L 10-60 [facility] Serum or plasma albumin/glob ulin mass ratioOrdered By: Tristan Pyle on 08-22-2022 Albumin/Globulin [Mass ratio] 1.1 {ratio} [facility] Serum or plasma anion gap de terminationOrdered By: Tristan Pyle on 08-22-2022 Anion gap [Moles/Vol] 15.3 mmol/L 6.0-15.[address] [facility] Serum or plasma creatinine m easurement with calculation of estimated glomerular filtrOrdered By: Tristan Pyle on 08-22-2022 Creatinine and Glomerular filtration rate.predicted panel (S/P/Bld) 0.67 mg/dL 0.44-1.03 [facility] Serum or plasma non-glucuron idated bilirubin measurement (mass/volume)Ordered By: Tristan Pyle on 08-22-2022 Bilirubin.indirect [Mass/Vol] 0.3 mg/dL [facility] Sodium [Moles/volume] in Ser um or PlasmaOrdered By: Tristan Pyle on 08-22-2022 Sodium [Moles/Vol] 141 mmol/L 136-146 [facility] Specific gravity Auto test s trip (U) [Rel density]Ordered By: Tristan Pyle on 08-22-2022 Specific gravity (U) [Rel density] 1.003 1.001-1.03 0 [facility] Squamous epithelial cells de tection in urine sediment by light microscopyOrdered By: Tristan Pyle on 08-22-2022 Epithelial cells.squamous LM Ql (Urine sed) 3-4 [HPF] 0-2 [facility] Urea nitrogen [Mass/volume] in Serum or PlasmaOrdered By: Tristan Pyle on 08-22-2022 Urea nitrogen [Mass/Vol] 9 mg/dL 9-23 [facility] Urine bacteria detection by automated methodOrdered By: Tristan Pyle on 08-22-2022 Bacteria Auto Ql (U) 1+ None Seen [facility] Urine clarity by refractomet ry automatedOrdered By: Tristan Pyle on 08-22-2022 Clarity Refractometry automated (U) Clear Clear [facility] Urine culture routineOrdered By: Tristan Pyle on 08-22-2022 Bacteria identified Cx Nom (U) 2 Days [facility] Bacteria identified Cx Nom (U) 2 Days [facility] Urine glucose measurement by automated test strip (mass/volume)Ordered By: Tristan Pyle on 08-22-2022 Glucose Auto test strip (U) [Mass/Vol] Normal mg/dL Normal [facility] Urine hemoglobin detection b y automated test stripOrdered By: Tristan Pyle on 08-22-2022 Hemoglobin Auto test strip Ql (U) 3+ Negative [facility] Urine lactic acid measuremen tOrdered By: Tristan Pyle on 08-22-2022 Lactate (U) [Moles/Vol] 1.0 mmol/L 0.5-2.2 [facility] Urine leukocyte esterase det ection by automated test stripOrdered By: Tristan Pyle on 08-22-2022 Leukocyte esterase Auto test strip Ql (U) 4+ Negative [facility] Urobilinogen Auto test strip (U) [Mass/Vol]Ordered By: Tristan Pyle on 08-22-2022 Urobilinogen (U) [Mass/Vol] Normal mg/dL Normal [facility] WBC Auto (Bld) [#/Vol]Ordere d By: Tristan Pyle on 08-22-2022 WBC (Bld) [#/Vol] 9.6 10*3/uL 3.8-11.6 [facility] Yeast detection in urine sed iment by light microscopyOrdered By: Tristan Pyle on 08-22-2022 Yeast LM Ql (Urine sed) None seen [HPF] None Seen [facility] pH Auto test strip (U)Ordere d By: Tristan Pyle on 08-22-2022 pH (U) 5.5 [pH] 5.0-9.0 [facility] C Urineon 08-21-2022 Bacteria identified Cx Nom (U) Normal [facility] Comment on above: Performed By: #### 2 [id number], [id number] ####[facility] [address] [place] [address] CT Abdomen/Pelvis w/o Contra ston 08-19-2022 CT Abdomen/Pelvis w/o Contrast Normal [facility] Coding Summary.on 08-19-2022 Coding Summary. Normal [facility] Discharge Instructionson Discharge Instructions [id number]:1 27 Normal [facility] ED Clinical Summaryon 2022 ED Clinical Summary Normal [facility] ED Note-Physicianon 08-19-19 ED Note-Physician Normal [facility] Comment on above: Result Comment: Elec tronically Signed By: Grey Putnam DO\.br\Date and Time Signed: 08/18/22 22:44 EST ED Patient Education Noteon 08-19-2022 ED Patient Education Note Normal [facility] ED Patient Summaryon 023 ED Patient Summary Normal [facility] RAD - Preliminary Cat Scan R eporton 08-19-2022 RAD - Preliminary Cat Scan Report [id number]:1 27 Normal [facility] Auto Diffon 08-18-2022 Basophils/100 WBC (Bld) 0.8 % Normal 0.0-2.0 [facility] Comment on above: Order Comment: Order Added by Discern Expert. Performed By: #### 2 [id number], 3323096, [id number], 0303146, 7257491, 6456122 ####[facility] [address] [place] [address] Basophils/Leukocytes Auto (Bld) [Pure # fraction] 0.1 E9/L Normal 0.0-0.2 [facility] Comment on above: Order Comment: Order Added by Discern Expert. Performed By: #### 2 287966, 4741538, 72675206, 5680744, 5913806, 3180991 ####[facility] [address] [place] [address] Eosinophils/100 WBC (Bld) 5.0 % Normal 0.0-8.0 [facility] Comment on above: Order Comment: Order Added by Discern Expert. Performed By: #### 2 364280, 5797612, 71043640, 5431648, 5763292, 6923726 ####[facility] [address] [place] [address] Eosinophils/Leukocytes Auto (Bld) [Pure # fraction] 0.4 E9/L Normal 0.0-0.5 [facility] Comment on above: Order Comment: Order Added by Discern Expert. Performed By: #### 2 382090, 6828930, 55520506, 2657707, 8329447, 2704849 ####[facility] [address] [place] [address] Lymphocytes/100 WBC (Bld) 24.3 % Normal 14.0-50.0 [facility] Comment on above: Order Comment: Order Added by Discern Expert. Performed By: #### 2 609155, 2831184, 48307103, 5536623, 7375716, 2025139 ####[address] [address] Lymphocytes/Leukocytes Auto (Bld) [Pure # fraction] 1.9 E9/L Normal 1.0-4.0 [facility] Comment on above: Order Comment: Order Added by Discern Expert. Performed By: #### 2 126221, 3857792, 37326715, 5408274, 7942925, 3562788 ####[address] [address] Monocytes/100 WBC (Bld) 7.0 % Normal 4.0-14.0 [facility] Comment on above: Order Comment: Order Added by Discern Expert. Performed By: #### 2 247628, 7962142, 02811889, 7604861, 4314090, 1408446 ####[address] [address] Monocytes/Leukocytes Auto (Bld) [Pure # fraction] 0.5 E9/L Normal 0.2-1.0 [facility] Comment on above: Order Comment: Order Added by Discern Expert. Performed By: #### 2 793948, 1104490, 09808385, 3203582, 2028323, 7246855 ####[address] [place] [address] Neutrophils/100 WBC (Bld) 62.9 % Normal 36.0-75.0 [facility] Comment on above: Order Comment: Order Added by Discern Expert. Performed By: #### 2 813754, 5256740, 91885813, 8923351, 1256678, 9303349 ####[address] [address] Neutrophils/Leukocytes Auto (Bld) [Pure # fraction] 4.8 E9/L Normal 2.0-7.5 [facility] Comment on above: Order Comment: Order Added by Discern Expert. Performed By: #### 2 021794, 6210489, 37010345, 3111516, 1821300, 5072970 ####[facility] [address] [place] [address] BMPon 08-18-2022 Creatinine [Mass/Vol] 0.8 mg/dL Normal 0.5-1.3 [facility] Comment on above: Performed By: #### 2 996029, 9994218, 72814487, 1195789, 5265283, 7683988 ####[facility] [address] [place] [address] Urea nitrogen [Mass/Vol] 19 mg/dL Normal 5-21 [facility] Comment on above: Performed By: #### 2 063809, 3846070, 65973252, 4450080, 9794027, 3014618 ####[facility] [address] [place] [address] Urea nitrogen/Creatinine [Mass ratio] 24 No Units High 10-20 [facility] Comment on above: Performed By: #### 2 059806, 0310725, 76304995, 2672521, 9868422, 0713171 ####[facility] [address] [place] [address] Anion gap [Moles/Vol] 11 mmol/L Normal 6-16 [facility] Comment on above: Performed By: #### 2 046143, 6601725, 92528023, 2813112, 5654633, 1395429 ####[facility] [address] [place] [address] Calcium [Mass/Vol] 9.1 mg/dL Normal 8.9-11.1 [facility] Comment on above: Performed By: #### 2 716173, 6305742, 14691531, 6106448, 5787048, 8617893 ####[facility] [address] [place] [address] Chloride [Moles/Vol] 102 mmol/L Normal 101-111 [facility] Comment on above: Performed By: #### 2 850820, 3426832, 71004549, 5804843, 9201458, 5276627 ####[facility] [address] [place] [address] CO2 [Moles/Vol] 26 mmol/L Normal 21-[address] [facility] Comment on above: Performed By: #### 2 170205, 1432295, 14906563, 5714716, 4961341, 7501877 ####[facility] [address] [place] [address] Glucose [Mass/Vol] 251 mg/dL High 55-199 [facility] Comment on above: Result Comment: If t his glucose result represents a fasting glucose, interpretation should refer to the following reference range: 55-99 mg/dL Performed By: #### 2 704722, 3374696, 37547172, 6542008, 2044950, 9877810 ####[facility] [address] [place] [address] Potassium [Moles/Vol] 4.0 mmol/L Normal 3.5-5.3 [facility] Comment on above: Performed By: #### 2 850816, 6297063, 28464366, 8211541, 3106278, 6442339 ####[facility] [address] [place] [address] Sodium [Moles/Vol] 135 mmol/L Normal 135-145 [facility] Comment on above: Performed By: #### 2 001526, 0430632, 01170639, 8256054, 9607333, 7667893 ####[facility] [address] [place] [address] CBC w/ Auto Diffon 3 Erythrocyte distribution width (RBC) [Ratio] 12.8 % Normal 10.9-14.2 [facility] Comment on above: Performed By: #### 2 649091, 2863759, [id number], 0845041, 0247287, 8182627 ####[address] [place] [address] Hematocrit (Bld) [Volume fraction] 40.4 % Normal 34.0-46.0 [facility] Comment on above: Performed By: #### 2 127345, 1644177, 88135585, 4991329, 2649262, 3068950 ####[place] [id number] Hemoglobin (Bld) [Mass/Vol] 13.6 g/dL Normal 12.0-16.0 [facility] Comment on above: Performed By: #### 2 344937, 8246791, 16568310, 8247589, 5469918, 7625868 ####[address] [address] MCH (RBC) [Entitic mass] 29.7 pg Normal 27.0-34.0 [facility] Comment on above: Performed By: #### 2 688918, 7818971, 65338226, 9970655, 0023449, 3599575 ####[address] [address] MCHC (RBC) [Mass/Vol] 33.7 g/dL Normal 31.4-36.0 [facility] Comment on above: Performed By: #### 2 264984, 1604338, 65309727, 5421902, 2947801, 6536437 ####[address] [address] MCV (RBC) [Entitic vol] 88.3 fL Normal 80.0-100.0 [facility] Comment on above: Performed By: #### 2 063437, 2892864, 22033921, 5736084, 7600431, 7249171 ####[address] [address] Platelet mean volume (Bld) [Entitic vol] 7.0 fL Normal 6.4-10.8 [facility] Comment on above: Performed By: #### 2 212316, 3046869, 50900498, 8502365, 3381502, 9817536 ####[facility] [address] [place] [address] Platelets (Bld) [#/Vol] 223.0 E9/L Normal 150.0-500. 0 [facility] Comment on above: Performed By: #### 2 515922, 9223637, 70716076, 1099333, 6286535, 6812353 ####[facility] [address] [place] [address] RBC (Bld) [#/Vol] 4.6 E12/L Normal 4.3-5.9 [facility] Comment on above: Performed By: #### 2 335273, 7113644, 73559099, 9077452, 9934880, 8905112 ####[facility] [address] [place] [address] WBC corrected for nucl RBC Auto (Bld) [#/Vol] 7.7 E9/L Normal 4.0-11.[address] [facility] Comment on above: Performed By: #### 2 652445, 1595591, 13548193, 3950975, 4545114, 3290373 ####[facility] [address] [place] [address] CHEMISTRYOrdered By: SYSTEM SYSTEM on 08-18-2022 Albumin [...] [iU]/d Normal 5 - 43 Int._Unit/ L [facility] Bilirubin [Mass/Vol] 0.6 mg/dL Normal 0.0 - 1 .1 mg/dL [facility] Bilirubin.direct [Mass/Vol] mg/dL Normal 0.1 - 0.4 mg/dL [facility] Bilirubin.indirect [Mass or moles/Vol] Unable to Calculate mg/dL Invalid Interpretation Code 0.1 - 0.9 mg/dL [facility] Remisol Calcium [Mass/Vol] 9.1 mg/dL Normal 8.9 - 11. 1 mg/dL [facility] Chloride [Moles/Vol] 102 mmol/L Normal 101 - 1 11 mmol/L [facility]isol CO2 [Moles/Vol] 26 mmol/L Normal 21 - 31 mmol/L [facility] Creatinine [Mass/Vol] 0.8 mg/dL Normal 0.5 - 1.3 mg/dL [facility] GFR/1.73 sq M.predicted among blacks MDRD (S/P/Bld) [Vol rate/Area] mL/min/1.73 m2 Normal >=59mL/min /1.73 m2 [facility] Chem S GFR/1.73 sq M.predicted among non-blacks MDRD (S/P/Bld) [Vol rate/Area] mL/min/1.73 m2 Normal >=59mL/min /1.73 m2 [facility] Chem S Globulin (S) [Mass/Vol] 3.5 g/dL [...] Consent for Treatmenton 07-31 Consent for Treatment [id number] Normal [facility] HEMATOLOGYOrdered By: SYSTEM SYSTEM on 08-18-2022 Basophils/100 [...] 1.0 E9/L [facility] HemeAutoSS Neutrophils/100 WBC (Bld) 62.9 % Normal 36.0 - 75.0 % [facility] HemeAutoSS Neutrophils/Leukocytes Auto (Bld) [Pure # fraction] 4.8 E9/L Normal 2.0 - 7.5 E9/L [facility] HemeAutoSS HEMATOLOGYOrdered By: Alliso n Toni on 08-18-2022 Erythrocyte distribution width (RBC) [Ratio] 12.8 % Normal 10.9 - 14.2 % [facility] HemeAutoSS Hematocrit (Bld) [Volume fraction] 40.4 % Normal 34.0 - 46.0 % [facility] HemeAutoSS Hemoglobin (Bld) [Mass/Vol] 13.6 g/dL Normal 12.0 - 16.0 gm/dL [facility] HemeAutoSS MCH (RBC) [Entitic mass] 29.7 pg [...] 4.6 E12/L Normal 4.3 - 5.9 E12/L [facility] HemeAutoSS WBC corrected for nucl RBC Auto (Bld) [#/Vol] 7.7 E9/L Normal 4.0 - 11.0 E9/L [facility] HemeAutoSS Hep Func Panelon 08-18-2022 Bilirubin.indirect [Mass or moles/Vol] UTC Abnormal 0.1-0.9 [facility] Comment on above: Result Comment: Resu lt verified by Discern Rule. Performed result UTC (Unable to Calculate) was sent as an Alpha code due the inability to calculate a valid numeric value. Performed By: #### 2 340639, 2817255, 42197486, 2187571, 0915983, 8314154 ####[facility] [address] [place] [address] Albumin [Mass/Vol] 4.2 g/dL Normal 3.3-5.0 [facility] Comment on above: Performed By: #### 2 159012, 7698703, 05678937, 2234721, 7690664, 4630398 ####[facility] [address] [place] [address] Albumin/Globulin (S) [Mass conc ratio] 1.2 Normal 1.1-2.2 [facility] Comment on above: Performed By: #### 2 428904, 6876501, 24046629, 4067392, 4881062, 4351050 ####[facility] [address] [place] [address] ALP [Catalytic activity/Vol] 63 Int._Unit/L Normal 21-98 [facility] Comment on above: Performed By: #### 2 309918, 1912910, 01061032, 6529328, 3492422, 4197235 ####[facility] [address] [place] [address] ALT No additional P-5'-P [Catalytic activity/Vol] 13 Int._Unit/L Normal 6-46 [facility] Comment on above: Performed By: #### 2 801952, 9054782, 24391436, 8304929, 2061698, 0216006 ####[address] [place] [id number] AST [Catalytic activity/Vol] 17 Int._Unit/L Normal 5-43 [facility] Comment on above: Performed By: #### 2 573339, 1737777, 77513289, 1450039, 0723383, 1598275 ####[place] [address] Bilirubin [Mass/Vol] 0.6 mg/dL Normal 0.0-1.1 [facility] Comment on above: Performed By: #### 2 281637, 3982603, 30678210, 0535190, 2347304, 9712559 ####[place] [address] Bilirubin.direct [Mass/Vol] mg/dL Normal 0.1-0.4 [facility] Comment on above: Performed By: #### 2 401147, 3664770, 49988508, 8791223, 4865551, 1078705 ####[address] [place] [address] Globulin (S) [Mass/Vol] 3.5 g/dL Normal 1.4-4.0 [facility] Comment on above: Performed By: #### 2 961602, 0780073, 57604063, 7920173, 6118678, 1659975 ####[address] [place] [address] Protein [Mass/Vol] 7.7 g/dL Normal 6.0-7.8 [facility] Comment on above: Performed By: #### 2 210322, 9328059, 05924364, 9867923, 7293733, 3332637 ####[facility] [address] [place] [address] Lipase Levelon 08-18-2022 Lipase [Catalytic activity/Vol] 44 U/L Normal 13-58 [facility] Comment on above: Performed By: #### 2 311159, 1319776, 45105032, 1932525, 4157970, 1896829 ####[facility] [address] [place] [address] UA With Cult Reflexon 2022 Bilirubin Ql (U) Negative Normal Negative [facility] Comment on above: Performed By: #### 2 677065, 07699170 ####[address] [address] Clarity (U) SL CLOUDY Abnormal Clear [facility] Comment on above: Performed By: #### 2 850480, 90360890 ####[address] [address] Color (U) RED Abnormal Yellow [facility] Comment on above: Performed By: #### 2 041156, 91835741 ####[address] [address] Epithelial cells.squamous LM.HPF (Urine sed) [#/Area] 5-8 Normal 0-2 [facility] Comment on above: Performed By: #### 2 819538, 07071681 ####[facility] [address] [place] [address] Glucose Test strip (U) [Mass/Vol] 2+ Abnormal Negative [facility] Comment on above: Performed By: #### 2 906255, 24471252 ####[address] [address] Hemoglobin Ql (U) 3+ Abnormal Negative [facility] Comment on above: Performed By: #### 2 518070, 92986469 ####[facility] [address] [place] [address] Ketones (U) [Mass/Vol] Negative Normal Negative [facility] Comment on above: Performed By: #### 2 433745, 78361394 ####[address] [address] [place].plasma/[place] .RBC (Bld) [Mass ratio] >75 Abnormal 0-3 [facility] Comment on above: Performed By: #### 2 567131, 50552985 ####[address] [address] Nitrite Ql (U) Negative Normal Negative [facility] Comment on above: Performed By: #### 2 133499, 63072659 ####[address] [address] pH (U) 6.0 [pH] Invalid Interpretation Code 5.0-9.0 [facility] Comment on above: Performed By: #### 2 280807, 77933873 ####[address] [address] Protein (U) [Mass/Vol] Negative Normal Negative [facility] Comment on above: Performed By: #### 2 401434, 02834693 ####[address] [address] Specific gravity (U) [Rel density] 1.025 Invalid Interpretation Code 1.005-1.03 0 [facility] Comment on above: Performed By: #### 2 662278, 49783834 ####[address] [address] Type of Urine collection method Clean Catch Normal [facility] Comment on above: Performed By: #### 2 540719, 00365365 ####[address] [address] Urobilinogen Qn (U) 0.2 {Diaz'U}/dL Normal 0.0-1.0 [facility] Comment on above: Performed By: #### 2 440917, 74623119 ####[facility] [address] [place] [address] WBC Auto Ql (U) 1+ Abnormal Negative [facility] Comment on above: Performed By: #### 2 113369, 79732597 ####[facility] [address] [place] [address] WBC LM.HPF (Urine sed) [#/Area] 6-15 Abnormal 0-5 [facility] Comment on above: Performed By: #### 2 559076, 52380438 ####[facility] [address] [place] [address] URINALYSISOrdered By: Clau Muñoz on 08-18-2022 Bilirubin [...] PM) Normal Negative [facility] UA Auto SS [place].plasma/[place] .RBC (Bld) [Mass ratio] >75 /HPF Invalid Interpretation Code 0-3/HPF [facility] UA Auto SS Nitrite Ql (U) Negative (08/18/22 7:18 PM) Normal Negative [facility] UA Auto SS pH (U) 6.0 *NA* (08/18/22 7:18 PM) Invalid Interpretation Code 5.0 - 9.0 [facility] UA Auto SS Protein (U) [Mass/Vol] Negative (08/18/22 7:18 PM) Normal Negative [facility] UA Auto SS Specific gravity (U) [Rel density] 1.025 *NA* (08/18/22 7:18 PM) Invalid Interpretation Code 1.005 - 1.030 [facility] UA Auto SS UA Spec Desc Clean Catch (08/18/22 7:18 PM) Normal [facility] UA Auto SS Urobilinogen Qn (U) 0.7572215 {Diaz'U}/dL Normal 0.0 - 1.0 EU/dL [facility] UA Auto SS WBC Auto Ql (U) 1+ *ABN* (08/18/22 7:18 PM) Invalid Interpretation Code Negative [facility] UA Auto SS WBC LM.HPF (Urine sed) [#/Area] 6-15 /HPF Invalid Interpretation Code 0-5/HPF [facility] UA Auto SS eGFRon 08-18-2022 GFR/1.73 sq M.predicted among blacks MDRD (S/P/Bld) [Vol rate/Area] mL/min/{1.73_m2} Normal >=59 [facility] Comment on above: Order Comment: Order added by Discern Expert. Result Comment: eGFR is race adjusted. AA=. Performed By: #### 2 841549, 8413758, 28198221, 2640338, 4610426, 8140264 ####[facility] [address] [place] [address] GFR/1.73 sq M.predicted among non-blacks MDRD (S/P/Bld) [Vol rate/Area] mL/min/{1.73_m2} Normal >=59 [facility] Comment on above: Order Comment: Order added by Discern Expert. 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 Kidney failure is indicated at less than 15 mL/min/1.73m2. Performed By: #### 2 882242, 2645885, 30095337, 8463767, 7140550, 4288162 ####[facility] [address] [place] [address] Albumin [Mass/volume] in Ser um or PlasmaOrdered By: Gurwinder Philippe on 08-17-2022 Albumin [Mass/Vol] 4.1 g/dL 3.2-5.5 [facility] Automated erythrocytes count in urine sediment (number/area)Ordered By: Gurwinder Philippe on 08-17-2022 RBC Auto (Urine sed) [#/Area] Innumerable [HPF] 0-4 [facility] Automated leukocytes count i n urine sediment (number/area)Ordered By: Gurwinder Philippe on 08-17-2022 WBC Auto (Urine sed) [#/Area] 5-9 [HPF] 0-4 [facility] Basophils Auto (Bld) [#/Vol] Ordered By: Gurwinder Philippe on 08-17-2022 Basophils (Bld) [#/Vol] 0.1 10*3/uL 0.0-0.2 [facility] Basophils/100 WBC Auto (Bld) Ordered By: Gurwinder Philippe on 08-17-2022 Basophils/100 WBC (Bld) 1.1 % . [facility] Bilirubin Test strip Ql (U)O rdered By: Gurwinder Philippe on 08-17-2022 Bilirubin Ql (U) Negative Negative [facility] Color Auto (U)Ordered By: Suzan Philippe on 08-17-2022 Color (U) Yellow Yellow [facility] Creatinine and Glomerular fi ltration rate.predicted panel (S/P/Bld)Ordered By: Gurwinder Philippe on 08-17-2022 Creatinine [Mass/Vol] 0.69 mg/dL 0.44-1.03 [facility] Direct bilirubin measurement Ordered By: Gurwinder Philippe on 08-17-2022 Bilirubin.direct [Mass/Vol] mg/dL 0.0-0.4 [facility] Eosinophils Auto (Bld) [#/Vo l]Ordered By: Gurwinder Philippe on 08-17-2022 Eosinophils (Bld) [#/Vol] 0.5 10*3/uL 0.0-0.45 [facility] Eosinophils/100 WBC Auto (Bl d)Ordered By: Gurwinder Philippe on 02-19-2023 Eosinophils/100 WBC (Bld) 5.6 % . [facility] Erythrocyte distribution wid th Auto (RBC) [Ratio]Ordered By: Gurwinder Philippe on 08-17-2022 Erythrocyte distribution width (RBC) [Ratio] 12.6 % 11.9-15.3 [facility] Estimated glomerular filtrat ion rate (GFR) non- AmericanOrdered By: Gurwinder Philippe on 08-17-2022 GFR/1.73 sq M.predicted among non-blacks MDRD (S/P/Bld) [Vol rate/Area] > 60 mL/Min [facility] Globulin Calc (S) [Mass/Vol] Ordered By: Gurwinder Philippe on 08-17-2022 Globulin (S) [Mass/Vol] 3.1 g/dL [facility] Hematocrit Auto (Bld) [Volum e fraction]Ordered By: Gurwinder Philippe on 08-17-2022 Hematocrit (Bld) [Volume fraction] 38.8 % 34.0-46.4 [facility] Hemoglobin [Mass/volume] in BloodOrdered By: Gurwinder Philippe on 08-17-2022 Hemoglobin (Bld) [Mass/Vol] 13.4 g/dL 11.8-15.4 [facility] Ketones Auto test strip (U) [Mass/Vol]Ordered By: Gurwinder Philippe on 08-17-2022 Ketones (U) [Mass/Vol] Negative Negative Fi [facility] - Chemistry and C hemistry - challengeOrdered By: Gurwinder Philippe on 08-17-2022 Lipase [Catalytic activity/Vol] 45.0 U/L 22-51 [facility] Laboratory - UrinalysisOrder ed By: Gurwinder Philippe on 08-17-2022 Hyaline casts LM Ql (Urine sed) 0-8 [LPF] 0-8 [facility] Leukocytes [#/volume] correc suzanne for nucleated erythrocytes in Blood by Automated counOrdered By: Gurwinder Philippe on 08-17-2022 WBC corrected for nucl RBC Auto (Bld) [#/Vol] 9.7 10*3/uL 3.8-11.6 [facility] Lymphocytes Auto (Bld) [#/Vo l]Ordered By: Gurwinder Philippe on 08-17-2022 Lymphocytes (Bld) [#/Vol] 2.1 10*3/uL 1.00-4.8 [facility] Lymphocytes/100 WBC Auto (Bl d)Ordered By: Gurwinder Philippe on 08-17-2022 Lymphocytes/100 WBC (Bld) 21.4 % . [facility] MCH Auto (RBC) [Entitic mass ]Ordered By: Gurwinder Philippe on 08-17-2022 MCH (RBC) [Entitic mass] 30.1 pg 24.7-34.3 [facility] MCHC Auto (RBC) [Mass/Vol]Or dered By: Gurwinder Philippe on 08-17-2022 MCHC (RBC) [Mass/Vol] 34.6 g/dL 32.0-35.0 [facility] MCV Auto (RBC) [Entitic vol] Ordered By: Gurwinder Philippe on 08-17-2022 MCV (RBC) [Entitic vol] 86.9 fL 80-100 [facility] Monocyte distribution width [Entitic volume] in Blood by AutomatedOrdered By: Gurwinder Philippe on 08-17-2022 Monocyte distribution width Auto (Bld) [Entitic vol] 17.82 % 0.00-20.00 [facility] Monocytes Auto (Bld) [#/Vol] Ordered By: Gurwinder Philippe on 08-17-2022 Monocytes (Bld) [#/Vol] 0.7 10*3/uL 0.0-0.8 [facility] Monocytes/100 WBC Auto (Bld) Ordered By: Gurwinder Philippe on 08-17-2022 Monocytes/100 WBC (Bld) 7.5 % . [facility] Neutrophils Auto (Bld) [#/Vo l]Ordered By: Gurwinder Philippe on 08-17-2022 Neutrophils (Bld) [#/Vol] 6.3 10*3/uL 1.8-7.7 [facility] Neutrophils/100 WBC Auto (Bl d)Ordered By: Gurwinder Philippe on 08-17-2022 Neutrophils/100 WBC (Bld) 64.4 % . [facility] Nitrite Test strip Ql (U)Ord ered By: Gurwinder Philippe on 08-17-2022 Nitrite Ql (U) Negative Negative [facility] No Panel InformationOrdered By: Gurwinder Philippe on 08-17-2022 Estimated GFR () > 60 mL/Min [facility] Comment on above: GFR estimated refere nce range: According to KDOQI guidelines, <60 ml/min/1.73m2 is sufficient to diagnose a patient with chronic kidney disease. Pharmacy Creatinine Clearance (Chem 134.55 [facility] > 60 mL/Min [facility] 45.0 U/L 22-51 [facility] 134.55 [facility] 0-8 [LPF] 0-8 [facility] Nucleated erythrocytes [Pres ence] in Blood by Automated countOrdered By: Gurwinder Philippe on 08-17-2022 Nucleated RBC Auto Ql (Bld) 0.0 /100{WBC} 0-0.5 [facility] Platelet mean volume Auto (B ld) [Entitic vol]Ordered By: Gurwinder Philippe on 08-17-2022 Platelet mean volume (Bld) [Entitic vol] 7.0 fL 6.3-10.7 [facility] Platelets Auto (Bld) [#/Vol] Ordered By: Gurwinder Philippe on 08-17-2022 Platelets (Bld) [#/Vol] 231 10*3/uL 150-450 [facility] Protein Auto test strip (U) [Mass/Vol]Ordered By: Gurwinder Philippe on 08-17-2022 Protein (U) [Mass/Vol] Negative Negative [facility] Protein [Mass/volume] in Ser um or PlasmaOrdered By: Gurwinder Philippe on 08-17-2022 Protein [Mass/Vol] 7.2 g/dL 6.1-7.9 [facility] RBC Auto (Bld) [#/Vol]Ordere d By: Gurwinder Philippe on 08-17-2022 RBC (Bld) [#/Vol] 4.46 10*6/uL 3.60-5.00 [facility] Serum or plasma alanine slaughter otransferase measurement without P-5'-P (enzymatic activiOrdered By: Gurwinder Philippe on 08-17-2022 ALT No additional P-5'-P [Catalytic activity/Vol] 15 U/L 10-60 [facility] Serum or plasma albumin/glob ulin mass ratioOrdered By: Gurwinder Philippe on 08-17-2022 Albumin/Globulin [Mass ratio] 1.3 {ratio} [facility] Serum or plasma alkaline shelby sphatase measurement (enzymatic activity/volume)Ordered By: Gurwinder Philippe on 08-17-2022 ALP [Catalytic activity/Vol] 66 U/L 32-92 [facility] Serum or plasma anion gap de terminationOrdered By: Gurwinder Philippe on 08-17-2022 Anion gap [Moles/Vol] 11.6 mmol/L 6.0-15.[address] [facility] Serum or plasma aspartate am inotransferase measurement (enzymatic activity/volume)Ordered By: Gurwinder Philippe on 08-17-2022 AST [Catalytic activity/Vol] 18 U/L 10-42 [facility] Serum or plasma calcium jesse urement (mass/volume)Ordered By: Gurwinder Philippe on 08-17-2022 Calcium [Mass/Vol] 9.2 mg/dL 8.2-10.2 [facility] Serum or plasma chloride marcia surement (moles/volume)Ordered By: Gurwinder Philippe on 08-17-2022 Chloride [Moles/Vol] 104 mmol/L 95-114 [facility] Serum or plasma creatinine m easurement with calculation of estimated glomerular filtrOrdered By: Gurwinder Philippe on 08-17-2022 Creatinine and Glomerular filtration rate.predicted panel (S/P/Bld) 0.69 mg/dL 0.44-1.03 [facility] Serum or plasma glucose jesse urement (mass/volume)Ordered By: Gurwinder Philippe on 08-17-2022 Glucose [Mass/Vol] 120 mg/dL 70-100 [facility] Comment on above: ADA recommended refe rence rangeRandom Glucose Reference Range is dependent on time and content of last meal. Glucose of more than 200 mg/dL in a nonstressed, ambulatory subject supports the diagnosis of Diabetes Mellitus. Serum or plasma non-glucuron idated bilirubin measurement (mass/volume)Ordered By: Gurwinder Philippe on 08-17-2022 Bilirubin.indirect [Mass/Vol] TNP [facility] Comment on above: Test not performed Serum or plasma potassium me asurement (moles/volume)Ordered By: Gurwinder Philippe on 08-17-2022 Potassium [Moles/Vol] 3.7 mmol/L 3.5-5.1 [facility] Serum or plasma sodium measu rement (moles/volume)Ordered By: Gurwinder Philippe on 08-17-2022 Sodium [Moles/Vol] 137 mmol/L 136-146 [facility] Serum or plasma total biliru bin measurement (mass/volume)Ordered By: Gurwinder Philippe on 08-17-2022 Bilirubin [Mass/Vol] 0.5 mg/dL 0.3-1.2 [facility] Serum or plasma total carbon dioxide measurement (moles/volume)Ordered By: Gurwinder Philippe on 08-17-2022 CO2 [Moles/Vol] 25.1 mmol/L 22.0-30.0 [facility] Serum or plasma urea nitroge n measurement (mass/volume)Ordered By: Gurwinder Philippe on 08-17-2022 Urea nitrogen [Mass/Vol] 17 mg/dL 9-23 [facility] Specific gravity Auto test s trip (U) [Rel density]Ordered By: Gurwinder Philippe on 08-17-2022 Specific gravity (U) [Rel density] 1.023 1.001-1.03 0 [facility] Squamous epithelial cells de tection in urine sediment by light microscopyOrdered By: Gurwinder Philippe on 08-17-2022 Epithelial cells.squamous LM Ql (Urine sed) 3-4 [HPF] 0-2 [facility] Urine bacteria detection by automated methodOrdered By: Gurwinder Philippe on 08-17-2022 Bacteria Auto Ql (U) None seen None Seen [facility] Urine clarity by refractomet ry automatedOrdered By: Gurwinder Philippe on 08-17-2022 Clarity Refractometry automated (U) Cloudy Clear [facility] Urine culture routineOrdered By: Gurwinder Philippe on 08-17-2022 Bacteria identified Cx Nom (U) 2 Days [facility] Bacteria identified Cx Nom (U) 2 Days [facility] Urine glucose measurement by automated test strip (mass/volume)Ordered By: Gurwinder Philippe on 08-17-2022 Glucose Auto test strip (U) [Mass/Vol] Normal mg/dL Normal [facility] Urine hemoglobin detection b y automated test stripOrdered By: Gurwinder Philippe on 08-17-2022 Hemoglobin Auto test strip Ql (U) 3+ Negative [facility] [facility] Urine leukocyte esterase det ection by automated test stripOrdered By: Gurwinder Philippe on 08-17-2022 Leukocyte esterase Auto test strip Ql (U) 3+ Negative [facility] Urobilinogen Auto test strip (U) [Mass/Vol]Ordered By: Gurwinder Philippe on 08-17-2022 Urobilinogen (U) [Mass/Vol] Normal mg/dL Normal [facility] WBC Auto (Bld) [#/Vol]Ordere d By: Gurwinder Philippe on 08-17-2022 WBC (Bld) [#/Vol] 9.7 10*3/uL 3.8-11.6 [facility] pH Auto test strip (U)Ordere d By: Gurwinder Philippe on 08-17-2022 pH (U) 6.5 [pH] 5.0-9.0 [facility] C Blood Charcoalon Blood Culture Charcoal Normal [facility] Comment on above: Performed By: #### 1 [id number] ####[facility] [address] [place] [address] Blood Culture Charcoal Normal [facility] Comment on above: Performed By: #### 1 [id number] ####[facility] [address] [place] [address] Cult, Bloodon 08-16-2022 Cult, Blood Specimen Description .BLOOD Special Requests 5ML RT HAND Culture NO GROWTH 5 DAYS Report Status FINAL 08/16/2022 Normal [facility] Comment on above: Performed By: #### B CUL2 #### [facility] [address] [place] [address] Administrator Pesticide: Raj Scott MD Cult,Bloodon 08-16-2022 Cult,Blood Specimen Description .BLOOD Special Requests 20 ML LAC Culture NO GROWTH 5 DAYS Report Status FINAL 08/16/2022 Normal [facility] Comment on above: Performed By: #### B CUL2 #### [facility] [address] [place] [address] Administrator Pesticide: Raj Scott MD CBC With Platelet and Differ entialon 08-14-2022 Basophils (Bld) [#/Vol] 0.0 10*3/uL Normal 0.0-0.2 [facility] Comment on above: Performed By: #### U AR #### [facility] [address] [place] [address] Basophils/100 WBC (Bld) 0.5 % Normal [facility] Comment on above: Performed By: #### U AR #### [facility] [address] [place] [address] Eosinophils (Bld) [#/Vol] 0.4 10*3/uL Normal 0.0-0.7 [facility] Comment on above: Performed By: #### U AR #### [facility] [address] [place] [address] Eosinophils/100 WBC (Bld) 5.3 % Normal [facility] Comment on above: Performed By: #### U AR #### [facility] [address] [place] [address] Erythrocyte distribution width (RBC) [Ratio] 12.7 % Normal 11.5-14.5 [facility] Comment on above: Performed By: #### U AR #### [facility] [address] [place] [address] Hematocrit (Bld) [Volume fraction] 42.6 % Normal 37.0-47.0 [facility] Comment on above: Performed By: #### U AR #### [facility] [address] [place] [address] Hemoglobin (Bld) [Mass/Vol] 14.7 g/dL Normal 12.0-16.0 [facility] Comment on above: Performed By: #### U AR #### [facility] [address] [place] [address] Lymphocytes (Bld) [#/Vol] 2.2 10*3/uL Normal 1.0-4.8 [facility] Comment on above: Performed By: #### U AR #### [facility] [address] [place] [address] Lymphocytes/100 WBC (Bld) 26.3 % Normal [facility] Comment on above: Performed By: #### U AR #### [facility] [address] [place] [address] MCH (RBC) [Entitic mass] 30.2 pg Normal 27.0-31.3 [facility] Comment on above: Performed By: #### U AR #### [facility] [address] [place] [address] MCHC 34.6 % Normal 33.0-37.0 [facility] Comment on above: Performed By: #### U AR #### [facility] [address] [place] [address] MCV (RBC) [Entitic vol] 87.2 fL Normal 79.4-94.8 [facility] Comment on above: Performed By: #### U AR #### [facility] [address] [place] [address] Monocytes (Bld) [#/Vol] 0.5 10*3/uL Normal 0.2-0.8 [facility] Comment on above: Performed By: #### U AR #### [facility] [address] [place] [address] Monocytes/100 WBC (Bld) 6.5 % Normal [facility] Comment on above: Performed By: #### U AR #### [facility] [address] [place] [address] Neutrophils (Bld) [#/Vol] 5.1 10*3/uL Normal 1.4-6.5 [facility] Comment on above: Performed By: #### U AR #### [facility] [address] [place] [address] Neutrophils/100 WBC (Bld) 61.4 % Normal [facility] Comment on above: Performed By: #### U AR #### [facility] [address] [place] [address] Platelets (Bld) [#/Vol] 243 10*3/uL Normal 130-400 [facility] Comment on above: Performed By: #### U AR #### [facility] [address] [place] [address] RBC (Bld) [#/Vol] 4.89 10*6/uL Normal 4.20-5.40 [facility] Comment on above: Performed By: #### U AR #### [facility] [address] [place] [address] WBC (Bld) [#/Vol] 8.3 10*3/uL Normal 4.8-10.8 [facility] Comment on above: Performed By: #### U AR #### [facility] [address] [place] [address] CT ABDOMEN PELVIS WO CONTRAS Ton 08-14-2022 [...] Carmelita Escalante MD 08/14/22 Final result Normal [facility] Comprehensive Metabolic Pane loco 08-14-2022 Albumin [Mass/Vol] 4.6 g/dL Normal 3.5-4.6 [facility] Comment on above: Performed By: #### U AR #### [facility] [address] [place] [address] ALP [Catalytic activity/Vol] 83 U/L Normal 40-130 [facility] Comment on above: Performed By: #### U AR #### [facility] [address] [place] [address] ALT [Catalytic activity/Vol] 12 U/L Normal 0-33 [facility] Comment on above: Performed By: #### U AR #### [facility] [address] [place] [address] Anion gap [Moles/Vol] 13 mmol/L Normal 9-15 [facility] Comment on above: Performed By: #### U AR #### [facility] [address] [place] [address] AST [Catalytic activity/Vol] 14 U/L Normal 0-35 [facility] Comment on above: Performed By: #### U AR #### [facility] [address] [place] [address] Bilirubin [Mass/Vol] 0.3 mg/dL Normal 0.2-0.7 [facility] Comment on above: Performed By: #### U AR #### [facility] [address] [place] [address] Calcium [Mass/Vol] 9.7 mg/dL Normal 8.5-9.9 [facility] Comment on above: Performed By: #### U AR #### [facility] [address] [place] [address] Chloride [Moles/Vol] 99 mmol/L Normal 95-107 [facility] Comment on above: Performed By: #### U AR #### [facility] [address] [place] [address] CO2 [Moles/Vol] 23 mmol/L Normal 20-31 [facility] Comment on above: Performed By: #### U AR #### [facility] [address] [place] [address] Creatinine [Mass/Vol] 0.52 mg/dL Normal 0.50-0.90 [facility] Comment on above: Performed By: #### U AR #### [facility] [address] [place] [address] GFR >60.0 Normal >60 [facility] Comment on above: Result Comment: Pedi atric [...] secretion. Performed By: #### U AR #### [facility] [address] [place] [address] Globulin (S) [Mass/Vol] 3.0 g/dL Normal 2.3-3.5 [facility] Comment on above: Performed By: #### U AR #### [facility] [address] [place] [address] Glucose [Mass/Vol] 154 mg/dL Critically high 70-99 [facility] Comment on above: Performed By: #### U AR #### [facility] [address] [place] [address] Potassium [Moles/Vol] 3.7 mmol/L Normal 3.4-4.9 [facility] Comment on above: Performed By: #### U AR #### [facility] [address] [place] [address] Protein [Mass/Vol] 7.6 g/dL Normal 6.3-8.0 [facility] Comment on above: Performed By: #### U AR #### [facility] [address] [place] [address] Sodium [Moles/Vol] 135 mmol/L Normal 135-144 [facility] Comment on above: Performed By: #### U AR #### [facility] [address] [place] [address] Urea nitrogen [Mass/Vol] 12 mg/dL Normal 6-20 [facility] Comment on above: Performed By: #### U AR #### [facility] [address] [place] [address] CBC AND DIFFERENTIALon 08-13 % AUTOMATED IMMATURE GRAN Canceled [facility] Comment on above: Order Comment: TEST CBC AND DIFFERENTIAL WAS CANCELLED, 08/13/2022 21:45 PATIENT DISCHARGED. Result Comment: Chary ture Granulocyte Count (IG) includes promyelocytes, myelocytes and metamyelocytes but does not include bands. Percent differential counts (%) should be interpreted in the context of the absolute cell counts (cells/L). Performed By: #### C BCDF #### [address] [id number] % BASOPHIL Canceled Normal [facility] Comment on above: Order Comment: TEST CBC AND DIFFERENTIAL WAS CANCELLED, 08/13/2022 21:45 PATIENT DISCHARGED. Performed By: #### C BCDF #### [address] [place] [id number] % EOSINOPHIL Canceled Normal [facility] Comment on above: Order Comment: TEST CBC AND DIFFERENTIAL WAS CANCELLED, 08/13/2022 21:45 PATIENT DISCHARGED. Performed By: #### C BCDF #### [address] [id number] % LYMPHOCYTE Canceled Normal [facility] Comment on above: Order Comment: TEST CBC AND DIFFERENTIAL WAS CANCELLED, 08/13/2022 21:45 PATIENT DISCHARGED. Performed By: #### C BCDF #### [address] [id number] % MONOCYTE Canceled Normal [facility] Comment on above: Order Comment: TEST CBC AND DIFFERENTIAL WAS CANCELLED, 08/13/2022 21:45 PATIENT DISCHARGED. Performed By: #### C BCDF #### [address] [id number] % NEUTROPHIL Canceled Normal [facility] Comment on above: Order Comment: TEST CBC AND DIFFERENTIAL WAS CANCELLED, 08/13/2022 21:45 PATIENT DISCHARGED. Performed By: #### C BCDF #### [address] [id number] BASOPHIL Canceled Normal [facility] Comment on above: Order Comment: TEST CBC AND DIFFERENTIAL WAS CANCELLED, 08/13/2022 21:45 PATIENT DISCHARGED. Performed By: #### C BCDF #### [address] [id number] DIFFERENTIAL Canceled Normal [facility] Comment on above: Order Comment: TEST CBC AND DIFFERENTIAL WAS CANCELLED, 08/13/2022 21:45 PATIENT DISCHARGED. Performed By: #### C BCDF #### [address] [id number] EOSINOPHIL Canceled Normal [facility] Comment on above: Order Comment: TEST CBC AND DIFFERENTIAL WAS CANCELLED, 08/13/2022 21:45 PATIENT DISCHARGED. Performed By: #### C BCDF #### [address] [id number] HCT Canceled Normal [facility] Comment on above: Order Comment: TEST CBC AND DIFFERENTIAL WAS CANCELLED, 08/13/2022 21:45 PATIENT DISCHARGED. Performed By: #### C BCDF #### [address] [id number] HGB Canceled Normal [facility] Comment on above: Order Comment: TEST CBC AND DIFFERENTIAL WAS CANCELLED, 08/13/2022 21:45 PATIENT DISCHARGED. Performed By: #### C BCDF #### [address] [id number] LYMPHOCYTE Canceled Normal [facility] Comment on above: Order Comment: TEST CBC AND DIFFERENTIAL WAS CANCELLED, 08/13/2022 21:45 PATIENT DISCHARGED. Performed By: #### C BCDF #### [address] [id number] MCHC Canceled Normal [facility] Comment on above: Order Comment: TEST CBC AND DIFFERENTIAL WAS CANCELLED, 08/13/2022 21:45 PATIENT DISCHARGED. Performed By: #### C BCDF #### [address] [id number] MCV Canceled Normal [facility] Comment on above: Order Comment: TEST CBC AND DIFFERENTIAL WAS CANCELLED, 08/13/2022 21:45 PATIENT DISCHARGED. Performed By: #### C BCDF #### [address] [id number] MONOCYTE Canceled Normal [facility] Comment on above: Order Comment: TEST CBC AND DIFFERENTIAL WAS CANCELLED, 08/13/2022 21:45 PATIENT DISCHARGED. Performed By: #### C BCDF #### [address] [id number] NEUTROPHIL Canceled Normal [facility] Comment on above: Order Comment: TEST CBC AND DIFFERENTIAL WAS CANCELLED, 08/13/2022 21:45 PATIENT DISCHARGED. Performed By: #### C BCDF #### [address] [id number] NUCLEATED RBC Canceled Normal [facility] Comment on above: Order Comment: TEST CBC AND DIFFERENTIAL WAS CANCELLED, 08/13/2022 21:45 PATIENT DISCHARGED. Performed By: #### C BCDF #### [address] [id number] PLT Canceled Normal [facility] Comment on above: Order Comment: TEST CBC AND DIFFERENTIAL WAS CANCELLED, 08/13/2022 21:45 PATIENT DISCHARGED. Performed By: #### C BCDF #### [address] [id number] RBC Canceled Normal [facility] Comment on above: Order Comment: TEST CBC AND DIFFERENTIAL WAS CANCELLED, 08/13/2022 21:45 PATIENT DISCHARGED. Performed By: #### C BCDF #### [address] [id number] RDW-CV Canceled Normal [facility] Comment on above: Order Comment: TEST CBC AND DIFFERENTIAL WAS CANCELLED, 08/13/2022 21:45 PATIENT DISCHARGED. Performed By: #### C BCDF #### [address] [id number] WBC Canceled Normal [facility] Comment on above: Order Comment: TEST CBC AND DIFFERENTIAL WAS CANCELLED, 08/13/2022 21:45 PATIENT DISCHARGED. Performed By: #### C BCDF #### [address] [id number] CBC with Auto Differentialon 08-13-2022 Basophils (Bld) [#/Vol] 0.0 10*3/uL 0.0 - 0.2 K/uL [facility] Basophils/100 WBC (Bld) 0.5 % [facility] Eosinophils (Bld) [#/Vol] 0.4 10*3/uL 0.0 - 0.7 K/uL [facility] Eosinophils/100 WBC (Bld) 5.3 % [facility] Hematocrit (Bld) [Volume fraction] 42.6 % 37.0 - 47.0 % [facility] Hemoglobin (Bld) [Mass/Vol] 14.7 g/dL 12.0 - 16.0 g/dL [facility] Lymphocytes (Bld) [#/Vol] 2.2 10*3/uL 1.0 - 4.8 K/uL [facility] Lymphocytes/100 WBC (Bld) 26.3 % [facility] MCH (RBC) [Entitic mass] 30.2 pg 27.0 - 31.3 pg [facility] MCHC (RBC) [Mass/Vol] 34.6 % 33.0 - 37.0 % [facility] MCV (RBC) [Entitic vol] 87.2 fL 79.4 - 94.8 fL [facility] Monocytes (Bld) [#/Vol] 0.5 10*3/uL 0.2 - 0.8 K/uL [facility] Monocytes/100 WBC (Bld) 6.5 % [facility] Neutrophils Absolute 5.1 K/uL 1.4 - 6 .5 K/uL [facility] Neutrophils/100 WBC (Bld) 61.4 % [facility] Platelet distribution width (Bld) [Ratio] 12.7 % 11.5 - 14.5 % [facility] Platelets (Bld) [#/Vol] 243 10*3/uL 130 - 400 K/uL [facility] RBC (Bld) [#/Vol] 4.89 10*6/uL [facility] WBC (Bld) [#/Vol] 8.3 10*3/uL 4.8 - 10.8 K/uL [facility] COMPREHENSIVE PANELon 2022 ALBUMIN Canceled Normal [facility] Comment on above: Order Comment: TEST COMPREHENSIVE PANEL WAS CANCELLED, 08/13/2022 21:45 PATIENT DISCHARGED. Performed By: #### C MP #### [address] [id number] ALKALINE PHOSPHATASE Canceled Normal [facility] Comment on above: Order Comment: TEST COMPREHENSIVE PANEL WAS CANCELLED, 08/13/2022 21:45 PATIENT DISCHARGED. Performed By: #### C MP #### [address] [id number] ALT Canceled [facility] Comment on above: Order Comment: TEST COMPREHENSIVE PANEL WAS CANCELLED, 08/13/2022 21:45 PATIENT DISCHARGED. Result Comment: Shaniqua ents treated with Sulfasalazine may generate falsely decreased results for ALT. Performed By: #### C MP #### [address], [place] [id number] ANION GAP Canceled Normal [facility] Comment on above: Order Comment: TEST COMPREHENSIVE PANEL WAS CANCELLED, 08/13/2022 21:45 PATIENT DISCHARGED. Performed By: #### C MP #### [address], [place] [id number] AST Canceled [facility] Comment on above: Order Comment: TEST COMPREHENSIVE PANEL WAS CANCELLED, 08/13/2022 21:45 PATIENT DISCHARGED. Performed By: #### C MP #### [address] [id number] BICARBONATE Canceled [facility] Comment on above: Order Comment: TEST COMPREHENSIVE PANEL WAS CANCELLED, 08/13/2022 21:45 PATIENT DISCHARGED. Performed By: #### C MP #### [address] [id number] BILIRUBIN,TOTAL Canceled [facility] Comment on above: Order Comment: TEST COMPREHENSIVE PANEL WAS CANCELLED, 08/13/2022 21:45 PATIENT DISCHARGED. Performed By: #### C MP #### [address] [id number] CALCIUM Canceled [facility] Comment on above: Order Comment: TEST COMPREHENSIVE PANEL WAS CANCELLED, 08/13/2022 21:45 PATIENT DISCHARGED. Performed By: #### C MP #### [address] [id number] CHLORIDE Canceled [facility] Comment on above: Order Comment: TEST COMPREHENSIVE PANEL WAS CANCELLED, 08/13/2022 21:45 PATIENT DISCHARGED. Performed By: #### C MP #### [address] [id number] CREATININE Canceled [facility] Comment on above: Order Comment: TEST COMPREHENSIVE PANEL WAS CANCELLED, 08/13/2022 21:45 PATIENT DISCHARGED. Performed By: #### C MP #### [address] [id number] eGFR FEMALE Canceled [facility] Comment on above: Order Comment: TEST COMPREHENSIVE PANEL WAS CANCELLED, 08/13/2022 21:45 PATIENT DISCHARGED. Result Comment: CALC ULATIONS OF ESTIMATED GFR ARE PERFORMED USING THE 2020 CKD-EPI STUDY REFIT EQUATION WITHOUT THE RACE VARIABLE FOR THE IDMS-TRACEABLE CREATININE METHODS. https://jasn.asnjournals.org/content/earlyASN.59287 49929 Performed By: #### C MP #### [address] [id number] eGFR MALE Canceled [facility] Comment on above: Order Comment: TEST COMPREHENSIVE PANEL WAS CANCELLED, 08/13/2022 21:45 PATIENT DISCHARGED. Result Comment: CALC ULATIONS OF ESTIMATED GFR ARE PERFORMED USING THE 2020 CKD-EPI STUDY REFIT EQUATION WITHOUT THE RACE VARIABLE FOR THE IDMS-TRACEABLE CREATININE METHODS. https://jasn.asnjournals.org/content/earlyASN.76415 90098 Performed By: #### C MP #### [address] [id number] GLUCOSE Canceled [facility] Comment on above: Order Comment: TEST COMPREHENSIVE PANEL WAS CANCELLED, 08/13/2022 21:45 PATIENT DISCHARGED. Performed By: #### C MP #### [address] [id number] POTASSIUM Canceled [facility] Comment on above: Order Comment: TEST COMPREHENSIVE PANEL WAS CANCELLED, 08/13/2022 21:45 PATIENT DISCHARGED. Performed By: #### C MP #### [address] [phone] SODIUM Canceled [facility] Comment on above: Order Comment: TEST COMPREHENSIVE PANEL WAS CANCELLED, 08/13/2022 21:45 PATIENT DISCHARGED. Performed By: #### C MP #### [address] [id number] TOTAL PROTEIN Canceled [facility] Comment on above: Order Comment: TEST COMPREHENSIVE PANEL WAS CANCELLED, 08/13/2022 21:45 PATIENT DISCHARGED. Performed By: #### C MP #### [address] [phone] UREA NITROGEN Canceled [facility] Comment on above: Order Comment: TEST COMPREHENSIVE PANEL WAS CANCELLED, 08/13/2022 21:45 PATIENT DISCHARGED. Performed By: #### C MP #### [address] [id number] Microscopic Urinalysison Bacteria, UA Negative Negative /HPF [employer] [facility] Epithelial Cells, UA 0-2 [facility] Hyaline Casts, UA 1-3 [facility] RBC (U) [#/Vol] /uL High [facility] WBC, UA 3-[address] [facility] No Panel Informationon 08-13 Interpretation and review of laboratory results Abnormal [facility] Risk Screen - Adult Emergenc yon 08-13-2022 Risk Screen - Adult Emergency Preferred Language: Preferred Language: Preferred Language for Discussing Health Care (patient/designee)Burkinan Patient Preferred Pharmacy: Patient Preferred Pharmacy Statement: [...] Communicatenone Learning Preferencesaudio Cultural Considerationsnone Developmental Considerationsnone Hinduism Considerationsnone Learning Assessment (Other Learner): Learning Assessment (Other Learner): Other learner availableno Pressure Injury/TB/Substance: Pressure Injury: Do you have a coughno Smoking Statusunable to assess Admission Risk Screen: Significant IndicatorsComplete CAGE: CAGE: Is this an injured patient at a Trauma Center [place]/[place]): no Electronic Signatures: Monica Oden (STAFF N) (Signed 13-Aug-2022 18:15) Authored: Preferred Language, Patient Preferred Pharmacy, Advanced Directives, Family Violence Adult, Learning Assessment (Patient), Learning Assessment (Other Learner), Pressure Injury/TB/Substance, Pressure Injury, CAGE Last Updated: 13-Aug-2022 18:15 by Moncia Oden (STAFF N) [facility] Triage - EDon 08-13-2022 Triage - ED [...] BMI (kg/m2): 39.745 Calculated BSA (m2) 2.33 Mariaelena Coma Scale: Best Eye Response: (E4) spontaneous Best Motor Response: (M6) obeys commands Best Verbal Response: (V5) oriented [place] Score: 15 Allergies: yes Patient has homicidal [...] 18:19 by Monica Oden (STAFF N) [facility] UA MICROSCOPICon 08-13-2022 RBC 136 /HPF Abnormal 0-5 [facility] Comment on above: Performed By: #### C BCDF #### [address] [id number] SQUAMOUS EPITH. CELLS 1 /HPF [facility] Comment on above: Performed By: #### C BCDF #### [address] [id number] WBC 8 /HPF Abnormal 0-5 [facility] Comment on above: Performed By: #### C BCDF #### [address] [id number] URINALYSIS WITH CULTURE IF I NDICATEDon 08-13-2022 Appearance (U) CLEAR Normal CLEAR [facility] Comment on above: Performed By: #### U ARFX #### [address] [id number] Bilirubin Ql (U) Negative Normal NEGATIVE [facility] Comment on above: Performed By: #### U ARFX #### [address] [id number] Color (U) YELLOW Normal STRAW,YELL [facility] Comment on above: Performed By: #### U ARFX #### [address] [id number] Glucose Ql (U) Negative Normal NEGATIVE [facility] Comment on above: Performed By: #### U ARFX #### [address] [id number] Hemoglobin Ql (U) LARGE (3+) Abnormal NEGATIVE [facility] Comment on above: Performed By: #### U ARFX #### [address] [id number] Ketones Ql (U) Negative Normal NEGATIVE [facility] Comment on above: Performed By: #### U ARFX #### [address] [id number] Leukocyte esterase Test strip Ql (U) TRACE Abnormal NEGATIVE [facility] Comment on above: Performed By: #### U ARFX #### [address] [id number] Nitrite Ql (U) Negative Normal NEGATIVE [facility] Comment on above: Performed By: #### U ARFX #### [address] [id number] pH (U) 6.0 [pH] Normal 5.0 - 8.0 [facility] Comment on above: Performed By: #### U ARFX #### [address] [id number] Protein Ql (U) 30 (1+) Abnormal NEGATIVE [facility] Comment on above: Performed By: #### U ARFX #### [address] [id number] Specific gravity (U) [Rel density] 1.005 Normal 1.005 - 1.035 [facility] Comment on above: Performed By: #### U ARFX #### [address] [id number] Urobilinogen (U) [Mass/Vol] mg/dL Normal 0.0 - 1.9 [facility] Comment on above: Performed By: #### U ARFX #### [address] [id number] URINE CULTURE,BACTERIALon URINE CULTURE,BACTERIAL PATIENT: GISEL CARLTON LOCATION: [facility]AN [place]YTON#: [id number] : 75 AGE: SEX: F ORDERED BY: SANDI GATICA SOURCE: URINE COLLECTED: 08/13/22 18:28 ANTIBIOTICS AT [facility].: RECEIVED : 08/13/22 22:58 SITE: R E S U L T S URINE CULTURE,BACTERIAL FINAL 08/14/22 15:44 NO SIGNIFICANT GROWTH. Normal [facility] Comment on above: Performed By: #### U [facility] #### [facility] [address] [place] [address] Urinalysis with Reflex to Cu ltureon 08-13-2022 Bilirubin Urine Negative Negative [facility] Blood, Urine LARGE Abnormal Negative [facility] Clarity, UA Clear Clear [facility] Color, UA ORANGE Abnormal Straw/Mower ow [facility] Glucose, Ur Negative Negative mg/dL [facility] Ketones Ql (U) Negative Negative mg/dL [facility] Leukocyte esterase Test strip Ql (U) TRACE Abnormal Negative [facility] Nitrite, Urine Negative Negative [facility] pH, UA 5.5 5.0 - 9.0 [facility] Protein, UA Negative Negative mg/dL [facility] Specific Dent, UA 1.011 1.005 - 1.030 [facility] Urine Reflex to Culture Not Indicated [facility] Urobilinogen, Urine 0.2 NINF [facility] Urinalysis, reflex to cultur andre 08-13-2022 Urine Reflexed to Culture Not Indicated Normal [facility] Comment on above: Performed By: #### U AR #### [facility] [address] [place] [address] Bilirubin Ql (U) Negative Normal Negative [facility] Comment on above: Performed By: #### U AR #### [facility] [address] [place] [address] Clarity (U) Clear Normal Clear [facility] Comment on above: Performed By: #### U AR #### [facility] [address] [place] [address] Color (U) ORANGE Abnormal Straw/Mower [facility] Comment on above: Performed By: #### U AR #### [facility] [address] [place] [address] Glucose Ql (U) Negative Normal Negative [facility] Comment on above: Performed By: #### U AR #### [facility] [address] [place] [address] Hemoglobin Ql (U) LARGE Abnormal Negative [facility] Comment on above: Performed By: #### U AR #### [facility] [address] [place] [address] Ketones Ql (U) Negative Normal Negative [facility] Comment on above: Performed By: #### U AR #### [facility] [address] [place] [address] Leukocyte esterase Test strip Ql (U) TRACE Abnormal Negative [facility] Comment on above: Performed By: #### U AR #### [facility] [address] [place] [address] Nitrite Ql (U) Negative Normal Negative [facility] Comment on above: Performed By: #### U AR #### [facility] [address] [place] [address] pH (U) 5.5 [pH] Normal 5.0-9.0 [facility] Comment on above: Performed By: #### U AR #### [facility] [address] [place] [address] Protein Ql (U) Negative Normal Negative [facility] Comment on above: Performed By: #### U AR #### [facility] [address] [place] [address] Specific gravity (U) [Rel density] 1.011 Normal 1.005-1.03 [facility] Comment on above: Performed By: #### U AR #### [facility] [address] [place] [address] Urobilinogen Qn (U) 0.2 {Diaz'U}/dL Normal < 2.0 [facility] Comment on above: Performed By: #### U AR #### [facility] [address] [place] [address] Urine Microscopicon 08-13-19 23 Bacteria LM.HPF (Urine sed) [#/Area] Negative Normal Negative [facility] Comment on above: Performed By: #### C MP #### [facility] [address] [place] [address] Urine Epithelial Cells Auto 0-2 Normal 0-5 [facility] Comment on above: Performed By: #### C MP #### [facility] [address] [place] [address] Urine Hyaline Casts Auto 1-3 Normal 0-5 [facility] Comment on above: Performed By: #### C MP #### [facility] [address] [place] [address] Urine RBC Auto >100 Critically high 0-5 [facility] Comment on above: Performed By: #### C MP #### [facility] [address] [place] [address] Urine WBC Auto 3-5 Normal 0-5 [facility] Comment on above: Performed By: #### C MP #### [facility] [address] [place] [address] Coding Summary.on 08-12-2022 Coding Summary. Normal [facility] Cult,Urineon 08-12-2022 Cult,Urine Specimen Description .URINE Culture NO SIGNIFICANT GROWTH Report Status FINAL 08/12/2022 Normal [facility] Comment on above: Performed By: #### U RC #### [facility] [address] [place], [place] [id number] Administrator Pesticide: Collin Melgar MD [facility] [address] [place] [address] Administrator Pesticide: Raj Scott MD CBC with Diffon 08-11-2022 Abs. Basophil 0.05 k/uL Normal 0.00-0.20 [facility] Comment on above: Performed By: #### C DP, CP #### [facility] [address] [place] [address] Administrator Pesticide: Raj Scott MD Abs.Imm.Granulocyte <0.03 Normal 0.00-0.30 [facility] Comment on above: Performed By: #### C DP, CP #### [address] [place], [facility]83 Administrator Pesticide: Raj Scott MD Abs.Neutrophil (Seg) 4.02 k/uL Normal 1.50-8.10 [facility] Comment on above: Performed By: #### C DP, CP #### [address] [place], [facility]83 Administrator Pesticide: Raj Scott MD Basophils/100 WBC (Bld) 1 % Normal 0-2 [facility] Comment on above: Performed By: #### C DP, CP #### [address] [place], [place] [address] Administrator Pesticide: Raj Scott MD Eosinophils (Bld) [#/Vol] 0.41 10*3/uL Normal 0.00-0.44 [facility] Comment on above: Performed By: #### C DP, CP #### [address] [place], [place] [address] Administrator Pesticide: Raj Scott MD Eosinophils/100 WBC (Bld) 6 % High 1-4 [facility] Comment on above: Performed By: #### C DP, CP #### [address] [place], [place] [address] Administrator Pesticide: Raj Scott MD Erythrocyte distribution width (RBC) [Ratio] 12.0 % Normal 11.8-14.4 [facility] Comment on above: Performed By: #### C DP, CP #### [address] [place], [facility]83 Administrator Pesticide: Raj Scott MD Hematocrit (Bld) [Volume fraction] 40.5 % Normal 36.3-47.1 [facility] Comment on above: Performed By: #### C DP, CP #### [facility] [address] [place], [place] [address]83 Administrator Pesticide: Raj Scott MD Hemoglobin (Bld) [Mass/Vol] 14.6 g/dL Normal 11.9-15.1 [facility] Comment on above: Performed By: #### C DP, CP #### [address] [place], [facility]83 Administrator Pesticide: Raj Scott MD Immature granulocytes/100 WBC (Bld) 0 % Normal 0 [facility] Comment on above: Performed By: #### C DP, CP #### [address] [place], [facility]83 Administrator Pesticide: Raj Scott MD Lymphocytes (Bld) [#/Vol] 1.95 10*3/uL Normal 1.10-3.70 [facility] Comment on above: Performed By: #### C DP, CP #### [address] [place], [facility]83 Administrator Pesticide: Raj Scott MD Lymphocytes/100 WBC (Bld) 28 % Normal 24-43 [facility] Comment on above: Performed By: #### C DP, CP #### [address] [place], [facility]83 Administrator Pesticide: Raj Scott MD MCH (RBC) [Entitic mass] 31.9 pg Normal 25.2-33.5 [facility] Comment on above: Performed By: #### C DP, CP #### [address] [place], [facility]83 Administrator Pesticide: Raj Scott MD MCHC (RBC) [Mass/Vol] 36.0 g/dL High 28.4-34.8 [facility] Comment on above: Performed By: #### C DP, CP #### [address] [place], [facility]83 Administrator Pesticide: Raj Scott MD MCV (RBC) [Entitic vol] 88.6 fL Normal 82.6-102.9 [facility] Comment on above: Performed By: #### C DP, CP #### [address] [place], [place] [address]83 Administrator Pesticide: Raj Scott MD Monocytes (Bld) [#/Vol] 0.44 10*3/uL Normal 0.10-1.20 [facility] Comment on above: Performed By: #### C DP, CP #### [address] [place], [place] [address] Administrator Pesticide: Raj Scott MD Monocytes/100 WBC (Bld) 6 % Normal 3-12 [facility] Comment on above: Performed By: #### C DP, CP #### [address] [place], [facility]68 ( Administrator Pesticide: Raj Scott MD Neutrophil (Seg) 59 % Normal 36-65 [facility] Comment on above: Performed By: #### C DP, CP #### [address] [place], [facility]83 Administrator Pesticide: Raj Scott MD NRBC Automated 0.0 per 100 WBC Normal 0.0 [facility] Comment on above: Performed By: #### C DP, CP #### [address] [place], [facility]06 ( Administrator Pesticide: Raj Scott MD Platelet mean volume (Bld) [Entitic vol] 9.0 fL Normal 8.1-13.5 [facility] Comment on above: Performed By: #### C DP, CP #### [address] [place], [place] [id number] Administrator Pesticide: Raj Scott MD Platelets (Bld) [#/Vol] 217 10*3/uL Normal 138-453 [facility] Comment on above: Performed By: #### C DP, CP #### [facility] [address] [place] [address] Administrator Pesticide: Raj Scott MD RBC (Bld) [#/Vol] 4.57 10*6/uL Normal 3.95-5.11 [facility] Comment on above: Performed By: #### C DP, CP #### [facility] [address] [place], [place] 1274083 Administrator Pesticide: Raj Scott MD WBC (Bld) [#/Vol] 6.9 10*3/uL Normal 3.5-11.3 [facility] Comment on above: Performed By: #### C DP, CP #### [facility] [address] [place] [address] Administrator Pesticide: Raj Scott MD CT ABDOMEN PELVIS WO [...] Drew Ferguson MD 08/11/22 Final result Normal [facility] Comp Metabolic Profon 2022 Albumin [Mass/Vol] 4.4 g/dL Normal 3.5-5.2 [facility] Comment on above: Performed By: #### C YANI, CP #### [facility] [address] [place] [address] [address] [address]83 Administrator Pesticide: Raj Scott MD Albumin/Glob Ratio 1.3 Normal 1.0-2.5 [facility] Comment on above: Performed By: #### C YANI, CP #### [address] [place], [facility]83 Administrator Pesticide: Raj Scott MD Alkaline Phos 85 U/L Normal 35-104 [facility] Comment on above: Performed By: #### C DP, CP #### [facility] [address] [place] [address] Dr. [place], [facility]83 Administrator Pesticide: Raj Scott MD ALT [Catalytic activity/Vol] 10 U/L Normal 5-33 [facility] Comment on above: Performed By: #### C DP, CP #### [facility] [address] [place] [address] Administrator Pesticide: Raj Scott MD Anion gap [Moles/Vol] 11 mmol/L Normal 9-17 [facility] Comment on above: Performed By: #### C DP, CP #### [facility] [address] [place], [place] 1133783 Administrator Pesticide: Raj Scott MD AST [Catalytic activity/Vol] 17 U/L Normal <32 [facility] Comment on above: Performed By: #### C DP, CP #### [facility] [address] [place], [place] 6344583 Administrator Pesticide: Raj Scott MD Bilirubin [Mass/Vol] 0.4 mg/dL Normal 0.3-1.2 [facility] Comment on above: Performed By: #### C DP, CP #### [facility] [address] [place], [place] 8141283 Administrator Pesticide: Raj Scott MD BUN/CRE Ratio 30 High 9-20 [facility] Comment on above: Performed By: #### C DP, CP #### [facility] [address] [place], [place] 1906083 Administrator Pesticide: Raj Scott MD Calcium [Mass/Vol] 9.8 mg/dL Normal 8.6-10.4 [facility] Comment on above: Performed By: #### C DP, CP #### [address] [place], [place] 3284283 Administrator Pesticide: Raj Scott MD Chloride [Moles/Vol] 103 mmol/L Normal 98-107 [facility] Comment on above: Performed By: #### C DP, CP #### [facility] [address] [place], [place] 9174783 Administrator Pesticide: Raj Scott MD CO2 [Moles/Vol] 25 mmol/L Normal 20-31 [facility] Comment on above: Performed By: #### C DP, CP #### [facility] [address] [place], [place] 2562983 Administrator Pesticide: Raj Scott MD Creatinine [Mass/Vol] 0.54 mg/dL Normal 0.50-0.90 [facility] Comment on above: Performed By: #### C DP, CP #### [facility] [address] [place] [address] [place] [address] Administrator Pesticide: Raj Scott MD GFR/1.73 sq M.predicted among non-blacks MDRD (S/P/Bld) [Vol rate/Area] mL/min/{1.73_m2} Normal >60 [facility] Comment on above: Result Comment: These results [...] Performed By: #### C DP, CP #### [facility] [address] [place] [address] [place] [address] Administrator Pesticide: Raj Scott MD Glucose [Mass/Vol] 201 mg/dL High 70-99 [facility] Comment on above: Performed By: #### C DP, CP #### [address] [place] [address] Administrator Pesticide: Raj Scott MD Potassium [Moles/Vol] 4.0 mmol/L Normal 3.7-5.3 [facility] Comment on above: Performed By: #### C DP, CP #### [address] [place] [address] Administrator Pesticide: Raj Scott MD Protein [Mass/Vol] 7.7 g/dL Normal 6.4-8.3 [facility] Comment on above: Performed By: #### C DP, CP #### [address] [place] [address] Administrator Pesticide: Rja Scott MD Sodium [Moles/Vol] 139 mmol/L Normal 135-144 [facility] Comment on above: Performed By: #### C DP, CP #### [facility] [address] [place], [place] 6439983 Administrator Pesticide: Raj Scott MD Urea nitrogen [Mass/Vol] 16 mg/dL Normal 6-20 [facility] Comment on above: Performed By: #### C DP, CP #### [facility] [address] [place], [place] 1854083 Administrator Pesticide: Raj Scott MD UA w/Reflex Cultureon 2022 Bilirubin, SemiQt,Ur Negative Normal NEG [facility] Comment on above: Performed By: #### U MICAO, UAX #### [facility] [address] [place] [address] Dr. [place], [place] 9318283 Administrator Pesticide: Raj Scott MD Blood, Urine 3+ Abnormal NEG [facility] Comment on above: Performed By: #### U MICAO, UAX #### [facility] [address] [place], [place] 1503483 Administrator Pesticide: Raj Scott MD Clarity (U) Cloudy Abnormal CLEAR [facility] Comment on above: Performed By: #### U MICAO, UAX #### [facility] [address] [place] [address] Dr. [place], [place] 6229483 Administrator Pesticide: Raj Scott MD Color (U) Yellow Normal YEL [facility] Comment on above: Performed By: #### U MICAO, UAX #### [facility] [address] [place], [place] 9724083 Administrator Pesticide: Raj Scott MD Glucose Ql (U) Negative Normal NEG [facility] Comment on above: Performed By: #### U MICAO, UAX #### [facility] [address] [place], [place] 7008683 Administrator Pesticide: Raj Scott MD Ketones Ql (U) Negative Normal NEG [facility] Comment on above: Performed By: #### U MICAO, UAX #### [facility] [address] [place] [address] Administrator Pesticide: Raj Scott MD Leukocyte esterase Test strip Ql (U) MODERATE Abnormal NEG [facility] Comment on above: Performed By: #### U MICAO, UAX #### [facility] [address] [place] [address] Administrator Pesticide: Raj Scott MD Nitrite,Ur Negative Normal NEG [facility] Comment on above: Performed By: #### U MICAO, UAX #### [facility] [address] [place] [address] [place] [address] Administrator Pesticide: Raj Scott MD PH,Ur 6.0 Normal 5.0-9.0 [facility] Comment on above: Performed By: #### U MICAO, UAX #### [facility] [address] [place] [address] [place] [address] Administrator Pesticide: Raj Scott MD Protein Ql (U) Negative Normal NEG [facility] Comment on above: Performed By: #### U MICAO, UAX #### [facility] [address] [place] [address] [place] [address] Administrator Pesticide: Raj Scott MD Spec. Dent,Ur 1.025 High 1.010-1.02 0 [facility] Comment on above: Performed By: #### U MICAO, UAX #### [facility] [address] [place] [address] Dr. [place], [place] 1359683 Administrator Pesticide: Raj Scott MD Urobilinogen,Ur Normal Normal NORM [facility] Comment on above: Performed By: #### U MICAO, UAX #### [facility] [address] [place] [address] Dr. [place], [place] 6852983 Administrator Pesticide: Raj Scott MD Urinalysis,Microon 3 Bacteria 1+ Abnormal NONE [facility] Comment on above: Performed By: #### U KAYDEN, UAX #### [facility] [address] [place], [place] 9918883 Administrator Pesticide: Raj Scott MD Epithelial cells LM Ql (Urine sed) 10 TO 20 Normal 0-25 [facility] Comment on above: Performed By: #### U KAYDEN, UAX #### [facility] [address] [place], [place] 5598883 Administrator Pesticide: Raj Scott MD Urine RBC's GREATER THAN 100 Normal 0-2 [facility] Comment on above: Performed By: #### U KAYDEN, UAX #### [facility] [address] [place], [place] 2225883 Administrator Pesticide: Raj Scott MD Urine WBC's 10 TO 20 Normal 0-5 [facility] Comment on above: Performed By: #### U KAYDEN, UAX #### [facility] [address] [place], [place] 9690583 Administrator Pesticide: Raj Scott MD C Urineon 08-10-2022 Bacteria identified Cx Nom (U) Normal [facility] Comment on above: Performed By: #### 2 [id number], [id number] ####[facility] [id number] [place] [address] CT Abdomen/Pelvis w/o Contra ston 08-09-2022 CT Abdomen/Pelvis w/o Contrast Normal [facility] ED Clinical Summaryon 2022 ED Clinical Summary Normal [facility] ED Patient Education Noteon 08-09-2022 ED Patient Education Note Normal [facility] ED Patient Summaryon 023 ED Patient Summary Normal [facility] Auto Diffon 08-08-2022 Basophils/100 WBC (Bld) 0.8 % Normal 0.0-2.0 [facility] Comment on above: Order Comment: Order Added by Discern Expert. Performed By: #### 2 544753, 3075859, 2844772, 2681717, 9333803, [id number] ####[place] [address] [place] [address] Basophils/Leukocytes Auto (Bld) [Pure # fraction] 0.1 E9/L Normal 0.0-0.2 [facility] Comment on above: Order Comment: Order Added by Discern Expert. Performed By: #### 2 653667, 5406441, 1127869, 4866449, 3859194, [id number] ####[place] [address] [place] [address] Eosinophils/100 WBC (Bld) 6.9 % Normal 0.0-8.0 [facility] Comment on above: Order Comment: Order Added by Discern Expert. Performed By: #### 2 465222, 1553216, 1086416, 0768769, 0387827, [id number] ####[address] [address] Eosinophils/Leukocytes Auto (Bld) [Pure # fraction] 0.6 E9/L High 0.0-0.5 [facility] Comment on above: Order Comment: Order Added by Discern Expert. Performed By: #### 2 624769, 2112865, 1406324, 1572832, 2886655, [id number] ####[place] [address] [place] [address] Lymphocytes/100 WBC (Bld) 29.5 % Normal 14.0-50.0 [facility] Comment on above: Order Comment: Order Added by Discern Expert. Performed By: #### 2 761232, 4046807, 8881204, 2993726, 4129197, [id number] ####[place] [address] [place] [address] Lymphocytes/Leukocytes Auto (Bld) [Pure # fraction] 2.4 E9/L Normal 1.0-4.0 [facility] Comment on above: Order Comment: Order Added by Discern Expert. Performed By: #### 2 941285, 5186760, 8155377, 2400101, 9881662, [id number] ####[facility] [address] [place] [address] Monocytes/100 WBC (Bld) 6.3 % Normal 4.0-14.0 [facility] Comment on above: Order Comment: Order Added by Discern Expert. Performed By: #### 2 995989, 9564802, 0117231, 8746075, 2256362, [id number] ####[place] [address] [place] [address] Monocytes/Leukocytes Auto (Bld) [Pure # fraction] 0.5 E9/L Normal 0.2-1.0 [facility] Comment on above: Order Comment: Order Added by Discern Expert. Performed By: #### 2 682360, 5976885, 2274129, 1071926, 8304671, [id number] ####[address] [address] Neutrophils/100 WBC (Bld) 56.5 % Normal 36.0-75.0 [facility] Comment on above: Order Comment: Order Added by Ariel Expert. Performed By: #### 2 379573, 5683789, 3130631, 6285238, 1792799, [id number] ####[place] [place] [address] Neutrophils/Leukocytes Auto (Bld) [Pure # fraction] 4.5 E9/L Normal 2.0-7.5 [facility] Comment on above: Order Comment: Order Added by Discern Expert. Performed By: #### 2 403007, 7364704, 7329325, 2510296, 0789126, [id number] ####[place] [place] [address] BMPon 08-08-2022 Creatinine [Mass/Vol] 0.6 mg/dL Normal 0.5-1.3 [facility] Comment on above: Performed By: #### 2 322174, 8037990, 2368115, 0999963, 9803774, [id number] ####[facility] [address] [place] [address] Urea nitrogen [Mass/Vol] 17 mg/dL Normal 5-21 [facility] Comment on above: Performed By: #### 2 135153, 8987787, 1016891, 5366484, 7688307, 37034563 ####[facility] [address] [place] [address] Urea nitrogen/Creatinine [Mass ratio] 28 No Units High 10-20 [facility] Comment on above: Performed By: #### 2 274854, 1314313, 7338726, 0110376, 9143078, [id number] ####[facility] [address] [place] [address] Anion gap [Moles/Vol] 14 mmol/L Normal 6-16 [facility] [facility] Comment on above: Performed By: #### 2 198840, 7669908, 2393257, 0845138, 5920138, 13950411 ####[facility] [address] [place] [address] Calcium [Mass/Vol] 9.4 mg/dL Normal 8.9-11.1 [facility] Comment on above: Performed By: #### 2 984673, 7117094, 0882477, 2305937, 6249828, 09063853 ####[facility] [address] [place] [address] Chloride [Moles/Vol] 101 mmol/L Normal 101-111 [facility] Comment on above: Performed By: #### 2 539960, 9465669, 2525043, 9835474, 1352189, 76613234 ####[facility] [address] [facility] [place] [address] CO2 [Moles/Vol] 25 mmol/L Normal 21-[address] [facility] Comment on above: Performed By: #### 2 289387, 6247526, 9009368, 6075243, 4125524, 48895843 ####[facility] [address] [place] [address] Glucose [Mass/Vol] 182 mg/dL Normal 55-199 [facility] Comment on above: Result Comment: If t his glucose result represents a fasting glucose, interpretation should refer to the following reference range: 55-99 mg/dL Performed By: #### 2 737243, 4062260, 1805147, 6001883, 9052098, 17464562 ####[facility] [address] [place] [address] Potassium [Moles/Vol] 3.8 mmol/L Normal 3.5-5.3 [facility] Comment on above: Performed By: #### 2 613877, 6466797, 0079514, 5551906, 5038880, 46025882 ####[address] [place] [address] Sodium [Moles/Vol] 136 mmol/L Normal 135-145 [facility] Comment on above: Performed By: #### 2 070432, 0305510, 8353858, 9483976, 3575588, 74709435 ####[address] [address] CBC w/ Auto Diffon 3 Erythrocyte distribution width (RBC) [Ratio] 12.8 % Normal 10.9-14.2 [facility] Comment on above: Performed By: #### 2 495659, 3734400, 3918229, 0928935, 2038253, 93085799 ####[address] [place] [address] Hematocrit (Bld) [Volume fraction] 43.5 % Normal 34.0-46.0 [facility] Comment on above: Performed By: #### 2 030793, 7875131, 4875600, 9731004, 6139670, 41856835 ####[facility] [address] [place] [address] Hemoglobin (Bld) [Mass/Vol] 14.6 g/dL Normal 12.0-16.0 [facility] Comment on above: Performed By: #### 2 139666, 9194024, 3858719, 2597350, 2291312, 21477525 ####[address] [place] [address] MCH (RBC) [Entitic mass] 29.5 pg Normal 27.0-34.0 [facility] Comment on above: Performed By: #### 2 891301, 6299745, 3477142, 8322229, 9331976, 93137115 ####[place] [address] MCHC (RBC) [Mass/Vol] 33.5 g/dL Normal 31.4-36.0 [facility] Comment on above: Performed By: #### 2 073001, 2071346, 3114174, 1831685, 4622957, 31271880 ####[address] [address] MCV (RBC) [Entitic vol] 88.1 fL Normal 80.0-100.0 [facility] Comment on above: Performed By: #### 2 437291, 5641763, 2777387, 9678170, 9460454, 80220391 ####[address] [address] Platelet mean volume (Bld) [Entitic vol] 7.0 fL Normal 6.4-10.8 [facility] Comment on above: Performed By: #### 2 520338, 1641155, 6558372, 9262501, 4660694, 85984300 ####[address] [address] Platelets (Bld) [#/Vol] 238.0 E9/L Normal 150.0-500. 0 [facility] Comment on above: Performed By: #### 2 535585, 1664925, 2878873, 2310091, 0758049, 84518999 ####[address] [address] RBC (Bld) [#/Vol] 4.9 E12/L Normal 4.3-5.9 [facility] Comment on above: Performed By: #### 2 461116, 1405631, 1472571, 1561377, 4067672, 48716562 ####[facility] [address] [place] [address] WBC corrected for nucl RBC Auto (Bld) [#/Vol] 8.0 E9/L Normal 4.0-11.[address] [facility] Comment on above: Performed By: #### 2 765982, 9836675, 8783271, 3796765, 8990758, 91290252 ####[facility] [address] [place] [address] CHEMISTRYOrdered By: SYSTEM SYSTEM on 08-08-2022 Albumin [...] 0.6 mg/dL Normal 0.5 - 1.3 mg/dL [facility] Remisol GFR/1.73 sq M.predicted among blacks MDRD (S/P/Bld) [Vol rate/Area] mL/min/1.73 m2 Normal >=59mL/min /1.73 m2 [facility] Chem S GFR/1.73 sq M.predicted among non-blacks MDRD (S/P/Bld) [Vol rate/Area] mL/min/1.73 m2 Normal >=59mL/min /1.73 m2 [facility] Chem S Globulin (S) [Mass/Vol] 3.5 g/dL Normal 1.4 - 4.0 gm/dL [facility] Glucose [Mass/Vol] 182 mg/dL Normal 55 - 199 mg/dL [facility] Lactate [Mass/Vol] 1.6 mmol/L Normal 0.5 - 2.2 mmol/L [facility] Remisol Lipase [Catalytic activity/Vol] 33 U/L Normal 13 - 58 unit/L [facility] Remisol Potassium [Moles/Vol] 3.8 mmol/L Normal 3.5 - 5.3 mmol/L [facility] Protein [Mass/Vol] 7.7 g/dL Normal 6.0 - 7.8 gm/dL [facility] Remisol Sodium [Moles/Vol] 136 mmol/L Normal 135 - 145 mmol/L [facility] Remisol Urea nitrogen [Mass/Vol] 17 mg/dL Normal 5 - 21 mg/dL [facility] Remisol Urea nitrogen/Creatinine [Mass ratio] 28 mg/mg High 10 - 20 [facility] Remisol Consent for Treatmenton 07-30 Consent for Treatment [id number]#[id number]:12 7 Normal [facility] Discharge Instructionson Discharge Instructions [id number]#[id number]:1 27 Normal [facility] ED Note-Physicianon 08-08-19 23 ED Note-Physician [facility] Comment on above: Result Comment: Elec tronically Signed By: Indy DO, Grey S.\.br\Date and Time Signed: 08/08/22 21:40 EST HEMATOLOGYOrdered By: Carte Blanche SYSTEM on 08-08-2022 Basophils/100 WBC (Bld) 0.8 [...] 88.1 fL Normal 80.0 - 100.0 fL [facility] HemeAutoSS Platelet mean volume (Bld) [Entitic vol] 7.0 fL Normal 6.4 - 10.8 fL [facility] HemeAutoSS Platelets (Bld) [#/Vol] 238.0 E9/L Normal 150.0 - 500.0 E9/L [facility] HemeAutoSS RBC (Bld) [#/Vol] 4.9 E12/L Normal 4.3 - 5.9 E12/L FT HemeAutoSS WBC corrected for nucl RBC Auto (Bld) [#/Vol] 8.0 E9/L Normal 4.0 - 11.0 E9/L FT HemeAutoSS Hep Func Panelon 08-08-2022 Bilirubin.indirect [Mass or moles/Vol] UTC Abnormal 0.1-0.9 [facility] Comment on above: Result Comment: Resu lt verified by Discern Rule. Performed result UTC (Unable to Calculate) was sent as an Alpha code due the inability to calculate a valid numeric value. Performed By: #### 2 688444, 2678790, 3426907, 9839070, 1248993, 07114411 ####[facility] [address] [place] [address] Albumin [Mass/Vol] 4.2 g/dL Normal 3.3-5.0 [facility] Comment on above: Performed By: #### 2 437516, 0378524, 8406001, 6595711, 5203315, 35662721 ####[facility] [address] [place] [address] Albumin/Globulin (S) [Mass conc ratio] 1.2 Normal 1.1-2.2 [facility] Comment on above: Performed By: #### 2 857709, 5826868, 8227376, 1454241, 6390100, 85294620 ####[facility] [address] [place] [address] ALP [Catalytic activity/Vol] 68 Int._Unit/L Normal 21-98 [facility] Comment on above: Performed By: #### 2 778149, 2515638, 0751258, 7485863, 9496967, 33973289 ####[facility] [address] [place] [address] ALT No additional P-5'-P [Catalytic activity/Vol] 12 Int._Unit/L Normal 6-46 [facility] Comment on above: Performed By: #### 2 418331, 1792651, 8183277, 3402352, 7388031, 64529252 ####[facility] [address] [place] [address] AST [Catalytic activity/Vol] 18 Int._Unit/L Normal 5-43 [facility] Comment on above: Performed By: #### 2 759067, 4568943, 1728051, 0037440, 0254971, 51036312 ####[address] [address] Bilirubin [Mass/Vol] 0.5 mg/dL Normal 0.0-1.1 [facility] Comment on above: Performed By: #### 2 343610, 7880138, 8888411, 6563749, 5703774, 25927231 ####[facility] [address] [place] [address] Bilirubin.direct [Mass/Vol] mg/dL Normal 0.1-0.4 [facility] Comment on above: Performed By: #### 2 088369, 9909427, 1844600, 5552722, 1929476, 72978438 ####[facility] [address] [place] [address] Globulin (S) [Mass/Vol] 3.5 g/dL Normal 1.4-4.0 [facility] Comment on above: Performed By: #### 2 527833, 7320507, 1770712, 1526107, 0557820, 09089483 ####[facility] [address] [place] [address] Protein [Mass/Vol] 7.7 g/dL Normal 6.0-7.8 [facility] Comment on above: Performed By: #### 2 930359, 5756404, 9758673, 8590554, 2722534, 53972364 ####[facility] [address] [place] [address] Lactic Acidon 08-08-2022 Lactate [Mass/Vol] 1.6 mmol/L Normal 0.5-2.2 [facility] Comment on above: Performed By: #### 2 587269 ####[address] [address] Lipase Levelon 08-08-2022 Lipase [Catalytic activity/Vol] 33 U/L Normal 13-58 [facility] Comment on above: Performed By: #### 2 630098, 7874095, 7048467, 1291148, 5278939, 86867608 ####[address] [address] RAD - Preliminary Cat Scan R eporton 08-08-2022 RAD - Preliminary Cat Scan Report [id number]#[id number]:1 27 Normal [facility] UA With Cult Reflexon 2022 Bacteria LM Ql (Urine sed) TRACE Normal Trace [facility] Comment on above: Performed By: #### 2 860094, 96184144 ####[address] [address] Bilirubin Ql (U) Negative Normal Negative [facility] Comment on above: Performed By: #### 2 683642, 91192275 ####[facility] [address] [place] [address] Clarity (U) SL CLOUDY Abnormal Clear [facility] Comment on above: Performed By: #### 2 769603, 42454540 ####[address] [place] [address] Color (U) YELLOW Normal Yellow [facility] Comment on above: Performed By: #### 2 293634, 88337112 ####[address] [address] Epithelial cells.squamous LM.HPF (Urine sed) [#/Area] 3-4 Normal 0-2 [facility] Comment on above: Performed By: #### 2 430653, 63226925 ####[facility] [address] [place] [address] Glucose Test strip (U) [Mass/Vol] Negative Normal Negative [facility] Comment on above: Performed By: #### 2 151025, 53880208 ####[facility] [address] [place] [address] Hemoglobin Ql (U) 3+ Abnormal Negative [facility] Comment on above: Performed By: #### 2 799738, 81251125 ####[address] [address] Ketones (U) [Mass/Vol] Negative Normal Negative [facility] Comment on above: Performed By: #### 2 675150, 83944132 ####[address] [address] [place].plasma/[place] .RBC (Bld) [Mass ratio] 21-30 Abnormal 0-3 [facility] Comment on above: Performed By: #### 2 329287, 13424748 ####[facility] [address] [place] [address] Nitrite Ql (U) Negative Normal Negative [facility] Comment on above: Performed By: #### 2 970167, 41364983 ####[address] [address] pH (U) 7.0 [pH] Invalid Interpretation Code 5.0-9.0 [facility] Comment on above: Performed By: #### 2 893481, 39618555 ####[address] [address] Protein (U) [Mass/Vol] Negative Normal Negative [facility] Comment on above: Performed By: #### 2 517922, 90825490 ####[address] [address] Specific gravity (U) [Rel density] 1.010 Invalid Interpretation Code 1.005-1.03 0 [facility] Comment on above: Performed By: #### 2 324488, 36159962 ####[facility] [address] [place] [address] Type of Urine collection method Clean Catch Normal [facility] Comment on above: Performed By: #### 2 343459, 02208595 ####[facility] [address] [place] [address] Urobilinogen Qn (U) 0.2 {Diaz'U}/dL Normal 0.0-1.0 [facility] Comment on above: Performed By: #### 2 356540, 24116198 ####[place] [address] WBC Auto Ql (U) 1+ Abnormal Negative [facility] Comment on above: Performed By: #### 2 134944, 30024134 ####[facility] [address] [place] [address] WBC LM.HPF (Urine sed) [#/Area] 6-15 Abnormal 0-5 [facility] Comment on above: Performed By: #### 2 975750, 00811372 ####[facility] [address] [place] [address] URINALYSISOrdered By: Janice Cruz on 08-08-2022 Bacteria [...] PM) Normal Negative [facility] UA Auto SS [place].plasma/[place] .RBC (Bld) [Mass ratio] 21-30 /HPF Invalid Interpretation Code 0-3/HPF [facility] UA [...] Desc Clean Catch (08/08/22 8:08 PM) Normal [facility] UA Auto SS Urobilinogen Qn (U) 0.7088376 {Diaz'U}/dL Normal 0.0 - 1.0 EU/dL [facility] UA Auto SS WBC Auto Ql (U) 1+ *ABN* (08/08/22 8:08 PM) Invalid Interpretation Code Negative [facility] UA Auto SS WBC LM.HPF (Urine sed) [#/Area] 6-15 /HPF Invalid Interpretation Code 0-5/HPF [facility] UA Auto SS eGFRon 08-08-2022 GFR/1.73 sq M.predicted among blacks MDRD (S/P/Bld) [Vol rate/Area] mL/min/{1.73_m2} Normal >=59 [facility] Comment on above: Order Comment: Order added by Discern Expert. Result Comment: eGFR is race adjusted. AA=. Performed By: #### 2 910023, 7959040, 2633117, 0881377, 8615100, 56106952 ####[facility] [address] [place] [address] GFR/1.73 sq M.predicted among non-blacks MDRD (S/P/Bld) [Vol rate/Area] mL/min/{1.73_m2} Normal >=59 [facility] Comment on above: Order Comment: Order added by Discern Expert. 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 Kidney failure is indicated at less than 15 mL/min/1.73m2. Performed By: #### 2 605423, 4861738, 8823885, 5460687, 2506859, 61810908 ####[facility] [address] [place] [address] Albumin [Mass/volume] in Ser um or PlasmaOrdered By: Vivek Ceballos on 08-02-2022 Albumin [Mass/Vol] 4.0 g/dL 3.2-5.5 [facility] Automated erythrocytes count in urine sediment (number/area)Ordered By: Vivek Ceballos on 08-02-2022 RBC Auto (Urine sed) [#/Area] Innumerable [HPF] 0-4 [facility] Automated leukocytes count i n urine sediment (number/area)Ordered By: Vivek Ceballos on 08-02-2022 WBC Auto (Urine sed) [#/Area] Innumerable [HPF] 0-4 [facility] Automated urine hyaline cast s count (number/volume)Ordered By: Vivek Ceballos on 08-02-2022 Hyaline casts Auto (U) [#/Vol] None seen [LPF] 0-1 [facility] Basophils Auto (Bld) [#/Vol] Ordered By: Vivek Ceballos on 08-02-2022 Basophils (Bld) [#/Vol] 0.1 10*3/uL 0.0-0.2 [facility] Basophils/100 WBC Auto (Bld) Ordered By: Vivek Ceballos on 08-02-2022 Basophils/100 WBC (Bld) 1.1 % . [facility] Bilirubin Test strip Ql (U)O rdered By: Vivek Ceballos on 08-02-2022 Bilirubin Ql (U) Negative Negative [facility] Casts typing in urine sedime nt by light microscopyOrdered By: Vivek Ceballos on 08-02-2022 Casts LM Nom (Urine sed) None seen [LPF] None Seen [facility] Color Auto (U)Ordered By: Juan jonas Tucker on 08-02-2022 Color (U) [place] Yellow [facility] Creatinine and Glomerular fi ltration rate.predicted panel (S/P/Bld)Ordered By: Vivek Ceballos on 08-02-2022 Creatinine [Mass/Vol] 0.78 mg/dL 0.44-1.03 [facility] Direct bilirubin measurement Ordered By: Vivek Ceballos on 08-02-2022 Bilirubin.direct [Mass/Vol] mg/dL 0.0-0.4 [facility] Eosinophils Auto (Bld) [#/Vo l]Ordered By: Vivek Ceballos on 08-02-2022 Eosinophils (Bld) [#/Vol] 0.5 10*3/uL 0.0-0.45 [facility] Eosinophils/100 WBC Auto (Bl d)Ordered By: Vivek Ceballos on 08-02-2022 Eosinophils/100 WBC (Bld) 5.5 % . [facility] Erythrocyte distribution wid th Auto (RBC) [Ratio]Ordered By: Vivek Ceballos on 08-02-2022 Erythrocyte distribution width (RBC) [Ratio] 12.8 % 11.9-15.3 [facility] Estimated glomerular filtrat ion rate (GFR) non- AmericanOrdered By: Vivek Ceballos on 08-02-2022 GFR/1.73 sq M.predicted among non-blacks MDRD (S/P/Bld) [Vol rate/Area] > 60 mL/Min [facility] Globulin Calc (S) [Mass/Vol] Ordered By: Vivek Ceballos on 08-02-2022 Globulin (S) [Mass/Vol] 3.2 g/dL [facility] HCG ( test) IA.rapi d Ql (U)Ordered By: Vivek Ceballos on 08-02-2022 HCG ( test) Ql (U) Negative [facility] Hematocrit Auto (Bld) [Volum e fraction]Ordered By: Vivek Ceballos on 08-02-2022 Hematocrit (Bld) [Volume fraction] 40.2 % 34.0-46.4 [facility] Hemoglobin [Mass/volume] in BloodOrdered By: Vivek Ceballos on 08-02-2022 Hemoglobin (Bld) [Mass/Vol] 13.8 g/dL 11.8-15.4 [facility] Ketones Auto test strip (U) [Mass/Vol]Ordered By: Vivek Ceballos on 08-02-2022 Ketones (U) [Mass/Vol] Trace Negative [facility] Laboratory - Chemistry and C hemistry - challengeOrdered By: Vivek Ceballos on 08-02-2022 Lipase [Catalytic activity/Vol] 37.0 U/L 22-51 [facility] Leukocytes [#/volume] correc suzanne for nucleated erythrocytes in Blood by Automated counOrdered By: Vivek Ceballos on 08-02-2022 WBC corrected for nucl RBC Auto (Bld) [#/Vol] 9.8 10*3/uL 3.8-11.6 [facility] Lymphocytes Auto (Bld) [#/Vo l]Ordered By: Vivek Ceballos on 08-02-2022 Lymphocytes (Bld) [#/Vol] 2.2 10*3/uL 1.00-4.8 [facility] Lymphocytes/100 WBC Auto (Bl d)Ordered By: Vivek Ceballos on 08-02-2022 Lymphocytes/100 WBC (Bld) 22.7 % . [facility] MCH Auto (RBC) [Entitic mass ]Ordered By: Vivek Ceballos on 08-02-2022 MCH (RBC) [Entitic mass] 30.2 pg 24.7-34.3 [facility] MCHC Auto (RBC) [Mass/Vol]Or dered By: Vivek Ceballos on 08-02-2022 MCHC (RBC) [Mass/Vol] 34.4 g/dL 32.0-35.0 [facility] MCV Auto (RBC) [Entitic vol] Ordered By: Vivek Ceballos on 08-02-2022 MCV (RBC) [Entitic vol] 87.8 fL 80-100 [facility] Monocyte distribution width [Entitic volume] in Blood by AutomatedOrdered By: Vivek Ceballos on 08-02-2022 Monocyte distribution width Auto (Bld) [Entitic vol] 18.28 % 0.00-20.00 [facility] Monocytes Auto (Bld) [#/Vol] Ordered By: Vivek Ceballos on 08-02-2022 Monocytes (Bld) [#/Vol] 0.6 10*3/uL 0.0-0.8 [facility] Monocytes/100 WBC Auto (Bld) Ordered By: Vivek Ceballos on 08-02-2022 Monocytes/100 WBC (Bld) 6.6 % . [facility] Neutrophils Auto (Bld) [#/Vo l]Ordered By: Vivek Ceballos on 08-02-2022 Neutrophils (Bld) [#/Vol] 6.3 10*3/uL 1.8-7.7 [facility] Neutrophils/100 WBC Auto (Bl d)Ordered By: Vivek Ceballos on 08-02-2022 Neutrophils/100 WBC (Bld) 64.1 % . [facility] Nitrite Test strip Ql (U)Ord ered By: Vivek Ceballos on 08-02-2022 Nitrite Ql (U) Negative Negative [facility] No Panel InformationOrdered By: Vivek Ceballos on 08-02-2022 Estimated GFR () > 60 mL/Min [facility] Comment on above: GFR estimated refere nce range: According to KDOQI guidelines, <60 ml/min/1.73m2 is sufficient to diagnose a patient with chronic kidney disease. Pharmacy Creatinine Clearance (Chem 119.70 [facility] > 60 mL/Min [facility] 37.0 U/L 22-51 [facility] 119.70 [facility] Nucleated erythrocytes [Pres ence] in Blood by Automated countOrdered By: Vivek Ceballos on 08-02-2022 Nucleated RBC Auto Ql (Bld) 0.0 /100{WBC} 0-0.5 [facility] Platelet mean volume Auto (B ld) [Entitic vol]Ordered By: Vivek Ceballos on 08-02-2022 Platelet mean volume (Bld) [Entitic vol] 7.3 fL 6.3-10.7 [facility] Platelets Auto (Bld) [#/Vol] Ordered By: Vivek Ceballos on 08-02-2022 Platelets (Bld) [#/Vol] 239 10*3/uL 150-450 [facility] Protein Auto test strip (U) [Mass/Vol]Ordered By: Vivek Ceballos on 08-02-2022 Protein (U) [Mass/Vol] 30 mg/dL [facility] Protein [Mass/volume] in Ser um or PlasmaOrdered By: Vivek Ceballos on 08-02-2022 Protein [Mass/Vol] 7.2 g/dL 6.1-7.9 [facility] RBC Auto (Bld) [#/Vol]Ordere d By: Vivek Ceballos on 08-02-2022 RBC (Bld) [#/Vol] 4.58 10*6/uL 3.60-5.00 [facility] Serum or plasma alanine slaughter otransferase measurement without P-5'-P (enzymatic activiOrdered By: Vivek Ceballos on 08-02-2022 ALT No additional P-5'-P [Catalytic activity/Vol] 12 U/L 10-60 [facility] Serum or plasma albumin/glob ulin mass ratioOrdered By: Vivek Ceballos on 08-02-2022 Albumin/Globulin [Mass ratio] 1.3 {ratio} [facility] Serum or plasma alkaline shelby sphatase measurement (enzymatic activity/volume)Ordered By: Vivek Ceballos on 08-02-2022 ALP [Catalytic activity/Vol] 67 U/L 32-92 [facility] Serum or plasma anion gap de terminationOrdered By: Vivek Ceballos on 08-02-2022 Anion gap [Moles/Vol] 11.5 mmol/L 6.0-15.[address] [facility] Serum or plasma aspartate am inotransferase measurement (enzymatic activity/volume)Ordered By: Vivek Ceballos on 08-02-2022 AST [Catalytic activity/Vol] 16 U/L 10-42 [facility] Serum or plasma calcium jesse urement (mass/volume)Ordered By: Vivek Ceballos on 08-02-2022 Calcium [Mass/Vol] 9.4 mg/dL 8.2-10.2 [facility] Serum or plasma chloride marcia surement (moles/volume)Ordered By: Vivek Ceballos on 08-02-2022 Chloride [Moles/Vol] 102 mmol/L 95-114 [facility] Serum or plasma creatinine m easurement with calculation of estimated glomerular filtrOrdered By: Vivek Ceballos on 08-02-2022 Creatinine and Glomerular filtration rate.predicted panel (S/P/Bld) 0.78 mg/dL 0.44-1.03 [facility] Serum or plasma glucose jesse urement (mass/volume)Ordered By: Vievk Ceballos on 08-02-2022 Glucose [Mass/Vol] 159 mg/dL 70-100 [facility] Comment on above: ADA recommended refe rence rangeRandom Glucose Reference Range is dependent on time and content of last meal. Glucose of more than 200 mg/dL in a nonstressed, ambulatory subject supports the diagnosis of Diabetes Mellitus. Serum or plasma non-glucuron idated bilirubin measurement (mass/volume)Ordered By: Vivek Ceballos on 08-02-2022 Bilirubin.indirect [Mass/Vol] TNP [facility] Comment on above: Test not performed Serum or plasma potassium me asurement (moles/volume)Ordered By: Vivek Ceballos on 08-02-2022 Potassium [Moles/Vol] 3.9 mmol/L 3.5-5.1 [facility] Serum or plasma sodium measu rement (moles/volume)Ordered By: Vivek Ceballos on 08-02-2022 Sodium [Moles/Vol] 137 mmol/L 136-146 [facility] Serum or plasma total biliru bin measurement (mass/volume)Ordered By: Vivek Ceballos on 08-02-2022 Bilirubin [Mass/Vol] 0.5 mg/dL 0.3-1.2 [facility] Serum or plasma total carbon dioxide measurement (moles/volume)Ordered By: Vivek Ceballos on 08-02-2022 CO2 [Moles/Vol] 27.4 mmol/L 22.0-30.0 [facility] Serum or plasma urea nitroge n measurement (mass/volume)Ordered By: Vivek Ceballos on 08-02-2022 Urea nitrogen [Mass/Vol] 16 mg/dL 9-23 [facility] Specific gravity Auto test s trip (U) [Rel density]Ordered By: Vivek Ceballos on 08-02-2022 Specific gravity (U) [Rel density] 1.026 1.001-1.03 0 [facility] Squamous epithelial cells de tection in urine sediment by light microscopyOrdered By: Vivek Ceballos on 08-02-2022 Epithelial cells.squamous LM Ql (Urine sed) 10-19 [HPF] 0-2 [facility] Urine bacteria detection by automated methodOrdered By: Vivek Ceballos on 08-02-2022 Bacteria Auto Ql (U) None seen None Seen [facility] Urine clarity by refractomet ry automatedOrdered By: Vivek Ceballos on 08-02-2022 Clarity Refractometry automated (U) Cloudy Clear [facility] Urine culture routineOrdered By: Vivek Ceballos on 08-02-2022 Bacteria identified Cx Nom (U) 2 Days [facility] Urine glucose measurement by automated test strip (mass/volume)Ordered By: Vivek Ceballos on 08-02-2022 Glucose Auto test strip (U) [Mass/Vol] Normal mg/dL Normal [facility] Urine hemoglobin detection b y automated test stripOrdered By: Vivek Ceballos on 08-02-2022 Hemoglobin Auto test strip Ql (U) 3+ Negative [facility] Urine leukocyte esterase det ection by automated test stripOrdered By: Vivek Ceballos on 08-02-2022 Leukocyte esterase Auto test strip Ql (U) 4+ Negative [facility] Urobilinogen Auto test strip (U) [Mass/Vol]Ordered By: Vivek Ceballos on 08-02-2022 Urobilinogen (U) [Mass/Vol] Normal mg/dL Normal [facility] WBC Auto (Bld) [#/Vol]Ordere d By: Vivek Ceballos on 08-02-2022 WBC (Bld) [#/Vol] 9.8 10*3/uL 3.8-11.6 [facility] pH Auto test strip (U)Ordere d By: Vivek Ceballos on 08-02-2022 pH (U) 5.5 [pH] 5.0-9.0 [facility] Urine culture routineOrdered By: Vivek Ceballos on 08-01-2022 Bacteria identified Cx Nom (U) 2 Days [facility] CBC AND DIFFERENTIALon 07-22 % AUTOMATED IMMATURE GRAN 0.2 % Normal 0.0 - 0.9 [facility] Comment on above: Result Comment: Chary ture Granulocyte Count (IG) includes promyelocytes, myelocytes and metamyelocytes but does not include bands. Percent differential counts (%) should be interpreted in the context of the absolute cell counts (cells/L). Performed By: #### C BCDF #### [address] [id number] Basophils (Bld) [#/Vol] 0.09 10*3/uL Normal 0.00 - 0.10 [facility] Comment on above: Performed By: #### C BCDF #### [address] [id number] Basophils/100 WBC (Bld) 0.8 % Normal 0.0 - 2.0 [facility] Comment on above: Performed By: #### C BCDF #### [address] [id number] Eosinophils (Bld) [#/Vol] 0.60 10*3/uL Normal 0.00 - 0.70 [facility] Comment on above: Performed By: #### C BCDF #### [address] [id number] Eosinophils/100 WBC (Bld) 5.5 % Normal 0.0 - 6.0 [facility] Comment on above: Performed By: #### C BCDF #### [address] [id number] Erythrocyte distribution width (RBC) [Ratio] 12.0 % Normal 11.5 - 14.5 [facility] Comment on above: Performed By: #### C BCDF #### [address] [id number] Hematocrit (Bld) [Volume fraction] 42.6 % Normal 36.0 - 46.0 [facility] Comment on above: Performed By: #### C BCDF #### [address] [id number] Hemoglobin (Bld) [Mass/Vol] 14.9 g/dL Normal 12.0 - 16.0 [facility] Comment on above: Performed By: #### C BCDF #### [address] [id number] Lymphocytes (Bld) [#/Vol] 3.83 10*3/uL Normal 1.20 - 4.80 [facility] Comment on above: Performed By: #### C BCDF #### [address] [id number] Lymphocytes/100 WBC (Bld) 35.1 % Normal 13.0 - 44.0 [facility] Comment on above: Performed By: #### C BCDF #### [address] [id number] MCHC (RBC) [Mass/Vol] 35.0 g/dL Normal 32.0 - 36.0 [facility] Comment on above: Performed By: #### C BCDF #### [address] [id number] MCV (RBC) [Entitic vol] 88 fL Normal 80 - 100 [facility] Comment on above: Performed By: #### C BCDF #### [address] [id number] Monocytes (Bld) [#/Vol] 0.68 10*3/uL Normal 0.10 - 1.00 [facility] Comment on above: Performed By: #### C BCDF #### [address] [id number] Monocytes/100 WBC (Bld) 6.2 % Normal 2.0 - 10.0 [facility] Comment on above: Performed By: #### C BCDF #### [address] [id number] Neutrophils (Bld) [#/Vol] 5.70 10*3/uL Normal 1.20 - 7.70 [facility] Comment on above: Performed By: #### C BCDF #### [address] [id number] Neutrophils/100 WBC (Bld) 52.2 % Normal 40.0 - 80.0 [facility] Comment on above: Performed By: #### C BCDF #### [address] [id number] Platelets (Bld) [#/Vol] 272 10*3/uL Normal 150 - 450 [facility] Comment on above: Performed By: #### C BCDF #### [address] [id number] RBC 4.85 x10E12/L Normal 4.00 - 5.20 [facility] Comment on above: Performed By: #### C BCDF #### [address] [id number] WBC (Bld) [#/Vol] 10.9 10*3/uL Normal 4.4 - 11.3 [facility] Comment on above: Performed By: #### C BCDF #### [address] [id number] COMPREHENSIVE PANELon 2022 Albumin [Mass/Vol] 4.5 g/dL Normal 3.4 - 5.0 [facility] Comment on above: Order Comment: Saud d- RB to Winsome Ko, 07/22/2022 00:23 Performed By: #### C MP #### [address] [id number] ALP [Catalytic activity/Vol] 79 U/L Normal 33 - 110 [facility] Comment on above: Order Comment: Saud little- RB to Winsome Ko, 07/22/2022 00:23 Performed By: #### C MP #### [address] [id number] ALT [Catalytic activity/Vol] 10 U/L Normal 7 - 45 [facility] Comment on above: Order Comment: Saud d- RB to Winsome Ko, 07/22/2022 00:23 Result Comment: Shaniqua ents treated with Sulfasalazine may generate falsely decreased results for ALT. Performed By: #### C MP #### [address] [id number] Anion gap [Moles/Vol] 13 mmol/L Normal 10 - 20 [facility] Comment on above: Order Comment: Saud little- RB to Winsome Ko, 07/22/2022 00:23 Performed By: #### C MP #### [address] [id number] AST [Catalytic activity/Vol] 10 U/L Normal 9 - 39 [facility] Comment on above: Order Comment: Sharp d- RB to Winsome Calvillorivas, 07/22/2022 00:23 Performed By: #### C MP #### [address] [id number] Bilirubin [Mass/Vol] 0.3 mg/dL Normal 0.0 - 1.2 [facility] Comment on above: Order Comment: Sharp d- RB to Winsome Calvillorivas, 07/22/2022 00:23 Performed By: #### C MP #### [address] [id number] Calcium [Mass/Vol] 10.0 mg/dL Normal 8.6 - 10.3 [facility] Comment on above: Order Comment: Sharp d- RB to Winsome Calvillorivas, 07/22/2022 00:23 Performed By: #### C MP #### [address] [id number] Chloride [Moles/Vol] 101 mmol/L Normal 98 - 107 [facility] Comment on above: Order Comment: Sharp d- RB to Winsome Maikel, 07/22/2022 00:23 Performed By: #### C MP #### [address] [id number] Creatinine [Mass/Vol] 0.64 mg/dL Normal 0.50 - 1.05 [facility] Comment on above: Order Comment: Sharp d- RB to Winsome Maikel, 07/22/2022 00:23 Performed By: #### C MP #### [address] [id number] eGFR FEMALE >90 Normal >90 [facility] Comment on above: Order Comment: Sharp d- RB to Winsome Ko, 07/22/2022 00:23 Result Comment: CALC ULATIONS OF ESTIMATED GFR ARE PERFORMED USING THE 2020 CKD-EPI STUDY REFIT EQUATION WITHOUT THE RACE VARIABLE FOR THE IDMS-TRACEABLE CREATININE METHODS. https://jasn.asnjournals.org/content/early//ASN.71155 61454 Performed By: #### C MP #### [address] [id number] Glucose [Mass/Vol] 47 mg/dL Critically low 74 - 99 [facility] Comment on above: Order Comment: Sharp d- RB to Winsome Calvillorivas, 07/22/2022 00:23 Result Comment: Call ed- RB to Winsome Calvillorivas, 07/22/2022 00:23 Performed By: #### C MP #### [address] [id number] HCO3 (Bld) [Moles/Vol] 30 mmol/L Normal 21 - 32 [facility] Comment on above: Order Comment: Sharp d- RB to Winsome Calvillorivas, 07/22/2022 00:23 Performed By: #### C MP #### [address] [id number] Potassium [Moles/Vol] 2.9 mmol/L Critically low 3.5 - 5.3 [facility] Comment on above: Order Comment: Sharp d- RB to Winsome Maikel, 07/22/2022 00:23 Result Comment: Call ed- RB to Winsome Calvillorivas, 07/22/2022 00:23 Performed By: #### C MP #### [address] [id number] Protein [Mass/Vol] 8.1 g/dL Normal 6.4 - 8.2 [facility] Comment on above: Order Comment: Sharp d- RB to Winsome Maikel, 07/22/2022 00:23 Performed By: #### C MP #### [address] [id number] Sodium [Moles/Vol] 141 mmol/L Normal 136 - 145 [facility] Comment on above: Order Comment: Saud little- RB to Winsome Ko, 07/22/2022 00:23 Performed By: #### C MP #### [address] [id number] Urea nitrogen [Mass/Vol] 19 mg/dL Normal 6 - 23 [facility] Comment on above: Order Comment: Saud little- RB to Winsome Ko, 07/22/2022 00:23 Performed By: #### C MP #### [address] [id number] EMR ADDONon 07-22-2022 ADDON CONFIRMATION REQUEST REC'D Normal [facility] Comment on above: Performed By: #### C BCDF #### [address] [id number] LIPASEon 07-22-2022 Lipase [Catalytic activity/Vol] 16 U/L Normal 9 - 82 [facility] Comment on above: Result Comment: Angelique puncture immediately after or during the administration of Metamizole may lead to falsely low results. Testing should be performed immediately prior to Metamizole dosing. H-lgaarg-b-benzoquinone imine (metabolite of Acetaminophen) will generate erroneously low results in samples for patients that have taken toxic doses of acetaminophen. Performed By: #### C BCDF #### [address] [id number] Provider Note - ED v3on 06-30 Provider [...] hours, A (more content not included)... Normal [facility] UA MICROSCOPICon 07-22-2022 Mucus Ql (Urine sed) 1+ /LPF Normal [facility] Comment on above: Performed By: #### U AMIC #### [address] [id number] RBC (U) [#/Vol] /uL Abnormal 0-5 [facility] Comment on above: Performed By: #### U AMIC #### [address] [id number] SQUAMOUS EPITH. CELLS 15 /HPF Normal [facility] Comment on above: Performed By: #### U AMIC #### [address] [id number] WBC 88 /HPF Abnormal 0-5 [facility] Comment on above: Performed By: #### U AMIC #### [address] [id number] URINALYSISon 07-22-2022 Glucose Ql (U) 100 mg/dL Abnormal NEGATIVE [facility] Comment on above: Result Comment: Louisa ified by [employer] Performed By: #### U A #### [address] [id number] HCG,URINEon 07-21-2022 Beta HCG ( test) Ql (U) Negative Normal Negative [facility] Comment on above: Performed By: #### H CGU #### [address] [id number] Triage - EDon 07-21-2022 Triage - ED [...] Last Updated: 21-Jul-2022 20:50 by Adrian Lewis (RN) Normal [facility] URINALYSISon 07-21-2022 Appearance (U) HAZY Normal CLEAR [facility] Comment on above: Performed By: #### U A #### [address] [id number] Bilirubin Ql (U) Negative Normal NEGATIVE [facility] Comment on above: Performed By: #### U A #### [address] [id number] Color (U) YELLOW Normal STRAW,YELL OW [facility] Comment on above: Performed By: #### U A #### [address] [id number] Hemoglobin Ql (U) LARGE (3+) Abnormal NEGATIVE [facility] Comment on above: Performed By: #### U A #### [address] [id number] Ketones Ql (U) Negative Normal NEGATIVE [facility] Comment on above: Performed By: #### U A #### [address] [id number] Leukocyte esterase Test strip Ql (U) LARGE (3+) Abnormal NEGATIVE [facility] Comment on above: Performed By: #### U A #### [address] [id number] Nitrite Ql (U) Negative Normal NEGATIVE [facility] Comment on above: Performed By: #### U A #### [address] [id number] pH (U) 5.0 [pH] Normal 5.0 - 8.0 [facility] Comment on above: Performed By: #### U A #### [address] [id number] Protein Ql (U) 30 (1+) Abnormal NEGATIVE [facility] Comment on above: Performed By: #### U A #### [address] [id number] Specific gravity (U) [Rel density] 1.028 Normal 1.005 - 1.035 [facility] Comment on above: Performed By: #### U A #### [address] [id number] Urobilinogen (U) [Mass/Vol] mg/dL Normal 0.0 - 1.9 [facility] Comment on above: Performed By: #### U A #### [address] [id number] URINE CULTURE,BACTERIALon URINE CULTURE,BACTERIAL PATIENT: GISEL CARLTON LOCATION: [facility] TATA#: [id number] : 75 AGE: SEX: F ORDERED BY: SENA DING SOURCE: URINE COLLECTED: 07/21/22 21:53 ANTIBIOTICS AT [facility]ED[facility].: RECEIVED : 07/22/22 09:04 SITE: Unspecified R E S U L T S URINE CULTURE,BACTERIAL FINAL 07/23/22 08:27 NO SIGNIFICANT GROWTH. Normal [facility] Comment on above: Performed By: #### [facility] #### [facility] [address] [place] [address] C Urineon 07-19-2022 Bacteria identified Cx Nom (U) Normal [facility] Comment on above: Performed By: #### 2 657911, [id number], [id number] ####[facility] [address] [place] [address] Coding Summary.on 07-18-2022 Coding Summary. Normal [facility] Discharge Instructionson Discharge Instructions [id number]:12 7 Normal [facility] ED Clinical Summaryon 2022 ED Clinical Summary Normal Dilma michael [facility] ED Note-Physicianon 07-18-19 23 ED Note-Physician Normal [facility] Comment on above: Result Comment: Elec tronically Signed By: Agatha Stinson M.D.\Date and Time Signed: 07/17/22 23:18 EST ED Patient Education Noteon 07-18-2022 ED Patient Education Note Normal [facility] ED Patient Summaryon 023 ED Patient Summary Normal [facility] US Renalon 07-18-2022 US Renal Normal [facility] Auto Diffon 07-17-2022 Basophils/100 WBC (Bld) 0.9 % Normal 0.0-2.0 [facility] Comment on above: Order Comment: Order Added by Discern Expert. Performed By: #### 2 352904, 6324783, 08565889, 7144028, 0665056 ####[facility] [address] [place] [address] Basophils/Leukocytes Auto (Bld) [Pure # fraction] 0.1 E9/L Normal 0.0-0.2 [facility] Comment on above: Order Comment: Order Added by Discern Expert. Performed By: #### 2 063381, 1031252, 13489445, 0442801, 5480368 ####[facility] [address] [place] [address] Eosinophils/100 WBC (Bld) 4.9 % Normal 0.0-8.0 [facility] Comment on above: Order Comment: Order Added by Discern Expert. Performed By: #### 2 198868, 9497449, 61649396, 1085837, 2041320 ####[facility] [address] [place] [address] Eosinophils/Leukocytes Auto (Bld) [Pure # fraction] 0.5 E9/L Normal 0.0-0.5 [facility] Comment on above: Order Comment: Order Added by Discern Expert. Performed By: #### 2 790096, 0201247, 49597682, 9793843, 2264134 ####[facility] [address] [place] [address] Lymphocytes/100 WBC (Bld) 24.3 % Normal 14.0-50.0 [facility] Comment on above: Order Comment: Order Added by Discern Expert. Performed By: #### 2 150119, 8314147, 75522393, 3301525, 0791389 ####[address] [place] [address] Lymphocytes/Leukocytes Auto (Bld) [Pure # fraction] 2.3 E9/L Normal 1.0-4.0 [facility] Comment on above: Order Comment: Order Added by Discern Expert. Performed By: #### 2 812789, 1234808, 95255670, 1656017, 2912364 ####[address] [address] Monocytes/100 WBC (Bld) 6.1 % Normal 4.0-14.0 [facility] Comment on above: Order Comment: Order Added by Discern Expert. Performed By: #### 2 795102, 0559252, 80076934, 7957908, 9678133 ####[address] [address] Monocytes/Leukocytes Auto (Bld) [Pure # fraction] 0.6 E9/L Normal 0.2-1.0 [facility] Comment on above: Order Comment: Order Added by Discern Expert. Performed By: #### 2 358136, 3546392, 71270501, 3260176, 5397351 ####[address] [address] Neutrophils/100 WBC (Bld) 63.8 % Normal 36.0-75.0 [facility] Comment on above: Order Comment: Order Added by Discern Expert. Performed By: #### 2 151737, 7904802, 75181866, 8154772, 5388373 ####[address] [address] Neutrophils/Leukocytes Auto (Bld) [Pure # fraction] 6.0 E9/L Normal 2.0-7.5 [facility] Comment on above: Order Comment: Order Added by Discern Expert. Performed By: #### 2 612475, 6786791, 74002712, 5681639, 2764640 ####[facility] [address] [place] [address] BMPon 07-17-2022 Creatinine [Mass/Vol] 0.6 mg/dL Normal 0.5-1.3 [facility] Comment on above: Performed By: #### 2 185229, 7123369, 17260327, 7472676, 3111690 ####[facility] [address] [place] [address] Urea nitrogen [Mass/Vol] 15 mg/dL Normal 5-21 [facility] Comment on above: Performed By: #### 2 024299, 4955723, 63431512, 6086666, 2430033 ####[facility] [address] [place] [address] Urea nitrogen/Creatinine [Mass ratio] 25 No Units High 10-20 [facility] Comment on above: Performed By: #### 2 465785, 9440462, 02888072, 4422848, 5615543 ####[facility] [address] [place] [address] Anion gap [Moles/Vol] 10 mmol/L Normal 6-16 [facility] Comment on above: Performed By: #### 2 259007, 7189658, 48769007, 2962277, 6721461 ####[facility] [address] [place] [address] Calcium [Mass/Vol] 9.6 mg/dL Normal 8.9-11.1 [facility] Comment on above: Performed By: #### 2 773943, 4154280, 78245537, 5535956, 8746276 ####[facility] [address] [place] [address] Chloride [Moles/Vol] 106 mmol/L Normal 101-111 [facility] Comment on above: Performed By: #### 2 561388, 8858967, 82668801, 1652683, 0482459 ####[facility] [address] [place] [address] CO2 [Moles/Vol] 25 mmol/L Normal 21-[address] [facility] Comment on above: Performed By: #### 2 345199, 4990748, 41632159, 6097724, 3228862 ####[facility] [address] [place] [address] Glucose [Mass/Vol] 77 mg/dL Normal 55-199 [facility] Comment on above: Result Comment: If t his glucose result represents a fasting glucose, interpretation should refer to the following reference range: 55-99 mg/dL Performed By: #### 2 650552, 0103234, 06757693, 9062289, 2339589 ####[facility] [address] [place] [address] Potassium [Moles/Vol] 3.8 mmol/L Normal 3.5-5.3 [facility] Comment on above: Performed By: #### 2 280492, 3679959, 90468179, 5957466, 7545600 ####[facility] [address] [place] [address] Sodium [Moles/Vol] 137 mmol/L Normal 135-145 [facility] Comment on above: Performed By: #### 2 935721, 7291973, 14663078, 6538606, 7921460 ####[facility] [address] [place] [address] CBC w/ Auto Diffon 3 Erythrocyte distribution width (RBC) [Ratio] 12.7 % Normal 10.9-14.2 [facility] Comment on above: Performed By: #### 2 437397, 3541572, 02712103, 1924096, 7778894 ####[facility] [address] [place] [address] Hematocrit (Bld) [Volume fraction] 42.6 % Normal 34.0-46.0 [facility] Comment on above: Performed By: #### 2 831912, 8046030, 89002294, 1052204, 0157949 ####[address] [place] [address] Hemoglobin (Bld) [Mass/Vol] 14.6 g/dL Normal 12.0-16.0 [facility] Comment on above: Performed By: #### 2 696635, 3066448, 77664272, 5230931, 4569816 ####[address] [address] MCH (RBC) [Entitic mass] 30.0 pg Normal 27.0-34.0 [facility] Comment on above: Performed By: #### 2 152251, 5051790, 09532265, 5219818, 6303547 ####[address] [address] MCHC (RBC) [Mass/Vol] 34.3 g/dL Normal 31.4-36.0 [facility] Comment on above: Performed By: #### 2 973510, 2904072, 43890138, 1068984, 2569779 ####[address] [address] MCV (RBC) [Entitic vol] 87.3 fL Normal 80.0-100.0 [facility] Comment on above: Performed By: #### 2 668139, 2888339, 24584409, 2414769, 9261550 ####[address] [address] Platelet mean volume (Bld) [Entitic vol] 7.1 fL Normal 6.4-10.8 [facility] Comment on above: Performed By: #### 2 943481, 8054242, 22886933, 5475137, 5197828 ####[address] [address] Platelets (Bld) [#/Vol] 254.0 E9/L Normal 150.0-500. 0 [facility] Comment on above: Performed By: #### 2 298592, 3123797, 95331264, 5237519, 2688552 ####[facility] [address] [place] [address] RBC (Bld) [#/Vol] 4.9 E12/L Normal 4.3-5.9 [facility] Comment on above: Performed By: #### 2 702615, 5790649, 32129627, 6762310, 3647779 ####[facility] [address] [place] [address] WBC corrected for nucl RBC Auto (Bld) [#/Vol] 9.4 E9/L Normal 4.0-11.[address] [facility] Comment on above: Performed By: #### 2 998685, 5820750, 41860164, 0845881, 3325718 ####[facility] [address] [place] [address] CHEMISTRYOrdered By: SYSTEM SYSTEM on 07-17-2022 Albumin [...] Consent for Treatmenton 06-29 Consent for Treatment [id number]:12 7 Normal [facility] HEMATOLOGYOrdered By: SYSTEM SYSTEM on 07-17-2022 Basophils/100 [...] 42.6 % Normal 34.0 - 46.0 % [facility] HemeAutoSS Hemoglobin (Bld) [Mass/Vol] 14.6 g/dL Normal 12.0 - 16.0 gm/dL [facility] HemeAutoSS MCH (RBC) [Entitic mass] 30.0 pg Normal 27.0 - 34.0 pg [facility] HemeAutoSS MCHC (RBC) [Mass/Vol] 34.3 g/dL Normal 31.4 - 36.0 gm/dL [facility] HemeAutoSS MCV (RBC) [Entitic vol] 87.3 fL Normal 80.0 - 100.0 fL [facility] HemeAutoSS Platelet mean volume (Bld) [Entitic vol] 7.1 fL Normal 6.4 - 10.8 fL [facility] HemeAutoSS Platelets (Bld) [#/Vol] 254.0 E9/L Normal 150.0 - 500.0 E9/L [facility] HemeAutoSS RBC (Bld) [#/Vol] 4.9 E12/L Normal 4.3 - 5.9 E12/L [facility] HemeAutoSS WBC corrected for nucl RBC Auto (Bld) [#/Vol] 9.4 E9/L Normal 4.0 - 11.0 E9/L [facility] HemeAutoSS Hep Func Panelon 07-17-2022 Bilirubin.indirect [Mass or moles/Vol] UTC Abnormal 0.1-0.9 [facility] Comment on above: Result Comment: Resu lt verified by Discern Rule. Performed result UTC (Unable to Calculate) was sent as an Alpha code due the inability to calculate a valid numeric value. Performed By: #### 2 384052, 7793297, 64227604, 2107472, 7967088 ####[facility] [address] [place] [address] Albumin [Mass/Vol] 4.3 g/dL Normal 3.3-5.0 [facility] Comment on above: Performed By: #### 2 690656, 4726307, 34800719, 6389586, 4911355 ####[facility] [address] [place] [address] Albumin/Globulin (S) [Mass conc ratio] 1.1 Normal 1.1-2.2 [facility] Comment on above: Performed By: #### 2 782109, 2288723, 74998077, 7230407, 9117866 ####[facility] [address] [place] [address] ALP [Catalytic activity/Vol] 77 Int._Unit/L Normal 21-98 [facility] Comment on above: Performed By: #### 2 250641, 2713050, 33213115, 1184655, 3361313 ####[facility] [address] [place] [address] ALT No additional P-5'-P [Catalytic activity/Vol] 15 Int._Unit/L Normal 6-46 [facility] Comment on above: Performed By: #### 2 098512, 8912569, 83250715, 8090502, 8807533 ####[address] [place] [address] AST [Catalytic activity/Vol] 17 Int._Unit/L Normal 5-43 [facility] Comment on above: Performed By: #### 2 016139, 4560808, 45302094, 8527841, 5703307 ####[address] [address] Bilirubin [Mass/Vol] 0.4 mg/dL Normal 0.0-1.1 [facility] Comment on above: Performed By: #### 2 747991, 0797606, 71594934, 6847510, 5694778 ####[address] [address] Bilirubin.direct [Mass/Vol] mg/dL Normal 0.1-0.4 [facility] Comment on above: Performed By: #### 2 479188, 9139931, 15839144, 1878735, 4700802 ####[address] [place] [address] Globulin (S) [Mass/Vol] 3.9 g/dL Normal 1.4-4.0 [facility] Comment on above: Performed By: #### 2 984962, 6689871, 48405252, 2192575, 0409865 ####[address] [place] [address] Protein [Mass/Vol] 8.2 g/dL High 6.0-7.8 [facility] Comment on above: Performed By: #### 2 993288, 5001240, 57703443, 9074771, 1184933 ####[address] [place] [address] Magnesiumon 07-17-2022 Magnesium [Mass/Vol] 1.9 mg/dL Normal 1.3-2.4 [facility] Comment on above: Performed By: #### 1 7792835, 2169169, 47912825 ####[facility] [address] [place] [address] SEROLOGYOrdered By: Raul For ster on 07-17-2022 HCG.beta subunit (U) [Moles/Vol] Negative Normal [facility] Man Sero TSH With T4fr Reflexon 07-17 TSH Qn 3.32 m[IU]/L Normal 0.34-5.60 [facility] Comment on above: Performed By: #### 1 0064259, 5502483, 15975656 ####[address] [address] Troponin 0 Hr.on 07-17-2022 Troponin I.cardiac [Mass/Vol] 4.60 pg/mL Low 10.10-27.1 0 [facility] Comment on above: Result Comment: The 95% CI (Confidence Interval) PPV (Positive Predictive Value) for myocardial infarction in females is 38 pg/mL, in males 51 pg/mL. The results should be used in conjunction with clinical conditions of myocardial infarction.(Access High Sensitivity Troponin I Instructions For Use, Wilfrido Bertha, January 2018) Performed By: #### 1 8963961, 9908528, [id number] ####[facility] [address] [place] [address] U BetaHcg Qualon 07-17-2022 HCG.beta subunit (U) [Moles/Vol] Negative Normal [facility] Comment on above: Performed By: #### 2 541448, 55464885, 46881735 ####[address] [place] [address] UA With Cult Reflexon 2022 Bacteria LM Ql (Urine sed) TRACE Normal Trace [facility] Comment on above: Performed By: #### 2 152817, 41497306, 13081031 ####[facility] [address] [place] [address] Bilirubin Ql (U) Negative Normal Negative [facility] Comment on above: Performed By: #### 2 467234, 53380804, 83803342 ####[facility] [address] [place] [address] Clarity (U) SL CLOUDY Abnormal Clear [facility] Comment on above: Performed By: #### 2 393351, 91611677, 04497517 ####[facility] [address] [place] [address] Color (U) YELLOW Normal Yellow [facility] Comment on above: Performed By: #### 2 062919, 12084145, 73282795 ####[address] [address] Epithelial cells.squamous LM.HPF (Urine sed) [#/Area] 0-2 Normal 0-2 [facility] Comment on above: Performed By: #### 2 729382, 67822947, 10551802 ####[facility] [address] [place] [address] Glucose Test strip (U) [Mass/Vol] Negative Normal Negative [facility] Comment on above: Performed By: #### 2 164736, 95902286, 18815066 ####[facility] [address] [place] [address] Hemoglobin Ql (U) 3+ Abnormal Negative [facility] Comment on above: Performed By: #### 2 347261, 60969174, 05735391 ####[facility] [address] [place] [address] Ketones (U) [Mass/Vol] Negative Normal Negative [facility] Comment on above: Performed By: #### 2 812264, 12903848, 60941239 ####[facility] [address] [place] [address] [place].plasma/[place] .RBC (Bld) [Mass ratio] >30 Abnormal 0-3 [facility] Comment on above: Performed By: #### 2 437062, 13333449, 24851581 ####[facility] [address] [place] [address] Mucus Ql (Urine sed) TRACE Normal Fish [facility] Comment on above: Performed By: #### 2 744084, 05784595, 67810784 ####[address] [address] Nitrite Ql (U) Negative Normal Negative [facility] Comment on above: Performed By: #### 2 619275, 39443995, 50823757 ####[address] [address] pH (U) 6.0 [pH] Invalid Interpretation Code 5.0-9.0 [facility] Comment on above: Performed By: #### 2 549702, 84335123, 34628383 ####[address] [address] Protein (U) [Mass/Vol] Negative Normal Negative [facility] Comment on above: Performed By: #### 2 527918, 45468328, 68009273 ####[address] [address] Specific gravity (U) [Rel density] >=1.030 Invalid Interpretation Code 1.005-1.03 0 [facility] Comment on above: Performed By: #### 2 534824, 63076281, 36882827 ####[address] [address] Type of Urine collection method Clean Catch Normal [facility] Comment on above: Performed By: #### 2 446563, 32430710, 72069265 ####[address] [address] Urobilinogen Qn (U) 0.2 {Diaz'U}/dL Normal 0.0-1.0 [facility] Comment on above: Performed By: #### 2 329092, 43226707, 50739616 ####[address] [place] [address] WBC Auto Ql (U) 2+ Abnormal Negative [facility] Comment on above: Performed By: #### 2 331035, 02489881, 73550777 ####[facility] [address] [place] [address] WBC LM.HPF (Urine sed) [#/Area] 0-5 Normal 0-5 [facility] Comment on above: Performed By: #### 2 532023, 84251856, 43879637 ####[facility] [address] [place] [address] URINALYSISOrdered By: Raul gordillo on 07-17-2022 Bacteria [...] PM) Normal Negative [facility] UA Auto SS [place].plasma/[place] .RBC (Bld) [Mass ratio] >30 /HPF Invalid [...] [Mass/Vol] Negative (07/17/22 8:03 PM) Normal Negative [facility] UA Auto SS Specific gravity (U) [Rel density] >=1.030 *NA* (07/17/22 8:03 PM) Invalid Interpretation Code 1.005 - 1.030 [facility] UA Auto SS UA Spec Desc Clean Catch (07/17/22 8:03 PM) Normal [facility] UA Auto SS Urobilinogen Qn (U) 0.7692571 {Diaz'U}/dL Normal 0.0 - 1.0 EU/dL [facility] UA Auto SS WBC Auto Ql (U) 2+ *ABN* (07/17/22 8:03 PM) Invalid Interpretation Code Negative [facility] UA Auto SS WBC LM.HPF (Urine sed) [#/Area] 0-5 /HPF Normal 0-5/HPF [facility] UA Auto SS eGFRon 07-17-2022 GFR/1.73 sq M.predicted among blacks MDRD (S/P/Bld) [Vol rate/Area] mL/min/{1.73_m2} Normal >=59 [facility] Comment on above: Order Comment: Order added by Discern Expert. Result Comment: eGFR is race adjusted. AA=. Performed By: #### 2 196026, 5100821, 94580448, 1891545, 7760175 ####[facility] [address] [place] [address] GFR/1.73 sq M.predicted among non-blacks MDRD (S/P/Bld) [Vol rate/Area] mL/min/{1.73_m2} Normal >=59 [facility] Comment on above: Order Comment: Order added by Discern Expert. 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 Kidney failure is indicated at less than 15 mL/min/1.73m2. Performed By: #### 2 799505, 3032212, 86164578, 2655800, 6751566 ####[facility] [address] [place] [address] CBC With Platelet and Differ entialon 07-11-2022 Basophils (Bld) [#/Vol] 0.1 10*3/uL Normal 0.0-0.2 [facility] Comment on above: Performed By: #### U NEYMAR #### [facility] [address] [place] [address] Basophils/100 WBC (Bld) 1.0 % Normal [facility] Comment on above: Performed By: #### U NEYMAR #### [facility] [address] [place] [address] Eosinophils (Bld) [#/Vol] 0.3 10*3/uL Normal 0.0-0.7 [facility] Comment on above: Performed By: #### U NEYMAR #### [facility] [address] [place] [address] Eosinophils/100 WBC (Bld) 4.3 % Normal [facility] Comment on above: Performed By: #### U NEYMAR #### [facility] [address] [place] [address] Erythrocyte distribution width (RBC) [Ratio] 12.6 % Normal 11.5-14.5 [facility] Comment on above: Performed By: #### U NEYMAR #### [facility] [address] [place] [address] Hematocrit (Bld) [Volume fraction] 41.7 % Normal 37.0-47.0 [facility] Comment on above: Performed By: #### U NEYMAR #### [facility] [address] [place] [address] Hemoglobin (Bld) [Mass/Vol] 14.6 g/dL Normal 12.0-16.0 [facility] Comment on above: Performed By: #### U NEYMAR #### [facility] [address] [place] [address] Lymphocytes (Bld) [#/Vol] 2.3 10*3/uL Normal 1.0-4.8 [facility] Comment on above: Performed By: #### U NEYMAR #### [facility] [address] [place] [address] Lymphocytes/100 WBC (Bld) 28.8 % Normal [facility] Comment on above: Performed By: #### U NEYMAR #### [facility] [address] [place] [address] MCH (RBC) [Entitic mass] 30.7 pg Normal 27.0-31.3 [facility] Comment on above: Performed By: #### U NEYMAR #### [facility] [address] [place] [address] MCHC 35.0 % Normal 33.0-37.0 [facility] Comment on above: Performed By: #### U NEYMAR #### [facility] [address] [place] [address] MCV (RBC) [Entitic vol] 87.6 fL Normal 79.4-94.8 [facility] Comment on above: Performed By: #### U NEYMAR #### [facility] [address] [place] [address] Monocytes (Bld) [#/Vol] 0.5 10*3/uL Normal 0.2-0.8 [facility] Comment on above: Performed By: #### U NEYMAR #### [facility] [address] [place] [address] Monocytes/100 WBC (Bld) 6.8 % Normal [facility] Comment on above: Performed By: #### U NEYMAR #### [facility] [address] [place] [address] Neutrophils (Bld) [#/Vol] 4.8 10*3/uL Normal 1.4-6.5 [facility] Comment on above: Performed By: #### U NEYMAR #### [facility] [address] [place] [address] Neutrophils/100 WBC (Bld) 59.1 % Normal [facility] Comment on above: Performed By: #### U NEYMAR #### [facility] [address] [place] [address] Platelets (Bld) [#/Vol] 240 10*3/uL Normal 130-400 [facility] Comment on above: Performed By: #### U NEYMAR #### [facility] [address] [place] [address] RBC (Bld) [#/Vol] 4.76 10*6/uL Normal 4.20-5.40 [facility] Comment on above: Performed By: #### U NEYMAR #### [facility] [address] [place] [address] WBC (Bld) [#/Vol] 8.1 10*3/uL Normal 4.8-10.8 [facility] Comment on above: Performed By: #### U NEYMAR #### [facility] [address] [place] [address] CT KIDNEY WO CONTRASTon 06-29 CT KIDNEY [...] Angel Selby MD 07/10/22 Final result Normal [facility] Comprehensive Metabolic Pane loco 07-11-2022 Anion gap [Moles/Vol] 13 mmol/L Normal 9-15 [facility] Comment on above: Performed By: #### C MP #### [facility] [address] [place] [address] Albumin [Mass/Vol] 4.3 g/dL Normal 3.5-4.6 [facility] Comment on above: Performed By: #### C MP #### [facility] [address] [place] [address] ALP [Catalytic activity/Vol] 79 U/L Normal 40-130 [facility] Comment on above: Performed By: #### C MP #### [facility] [address] [place] [address] ALT [Catalytic activity/Vol] 14 U/L Normal 0-33 [facility] Comment on above: Performed By: #### C MP #### [facility] [address] [place] [address] AST [Catalytic activity/Vol] 18 U/L Normal 0-35 [facility] Comment on above: Result Comment: Spec imen hemolysis has exceeded the interference as defined by Mariah. Value may be falsely increased. Suggest recollection if clinically indicated. Performed By: #### C MP #### [facility] [address] [place] [address] Bilirubin [Mass/Vol] mg/dL Normal 0.2-0.7 [facility] Comment on above: Performed By: #### C MP #### [facility] [address] [place] [address] Calcium [Mass/Vol] 9.8 mg/dL Normal 8.5-9.9 [facility] Comment on above: Performed By: #### C MP #### [facility] [address] [place] [address] Chloride [Moles/Vol] 103 mmol/L Normal 95-107 [facility] Comment on above: Performed By: #### C MP #### [facility] [address] [place] [address] CO2 [Moles/Vol] 24 mmol/L Normal 20-31 [facility] Comment on above: Performed By: #### C MP #### [facility] [address] [place] [address] Creatinine [Mass/Vol] 0.55 mg/dL Normal 0.50-0.90 [facility] Comment on above: Performed By: #### C MP #### [facility] [address] [place] [address] GFR >60.0 Normal >60 [facility] Comment on above: Result Comment: [place] atric calculator link https://www.kidney.org/professionals/kdoqi/gfr_calculatorped Effective Mar 31, [...] secretion. Performed By: #### C MP #### [facility] [address] [place] [address] Globulin (S) [Mass/Vol] 3.3 g/dL Normal 2.3-3.5 [facility] Comment on above: Performed By: #### C MP #### [facility] [address] [place] [address] Glucose [Mass/Vol] 85 mg/dL Normal 70-99 [facility] Comment on above: Performed By: #### C MP #### [facility] [address] [place] [address] Potassium [Moles/Vol] 4.0 mmol/L Normal 3.4-4.9 [facility] Comment on above: Performed By: #### C MP #### [facility] [address] [place] [address] Protein [Mass/Vol] 7.6 g/dL Normal 6.3-8.0 [facility] Comment on above: Performed By: #### C MP #### [facility] [address] [place] [address] Sodium [Moles/Vol] 140 mmol/L Normal 135-144 [facility] Comment on above: Performed By: #### C MP #### [facility] [address] [place] [address] Urea nitrogen [Mass/Vol] 20 mg/dL Normal 6-20 [facility] Comment on above: Performed By: #### C MP #### [facility] [address] [place] [address] Lactic Acidon 07-11-2022 Lactate [Moles/Vol] 1.5 mmol/L Normal 0.5-2.2 [facility] Comment on above: Performed By: #### L ACID #### [facility] [address] [place] [address] Lipaseon 07-11-2022 Lipase [Catalytic activity/Vol] 34 U/L Normal 12-95 [facility] Comment on above: Performed By: #### C MP #### [facility] [address] [place] [address] CBC with Auto Differentialon 07-10-2022 Basophils (Bld) [#/Vol] 0.1 10*3/uL 0.0 - 0.2 K/uL [facility] Basophils/100 WBC (Bld) 1.0 % [facility] Eosinophils (Bld) [#/Vol] 0.3 10*3/uL 0.0 - 0.7 K/uL [facility] Eosinophils/100 WBC (Bld) 4.3 % [facility] Hematocrit (Bld) [Volume fraction] 41.7 % 37.0 - 47.0 % [facility] Hemoglobin (Bld) [Mass/Vol] 14.6 g/dL 12.0 - 16.0 g/dL [facility] Lymphocytes (Bld) [#/Vol] 2.3 10*3/uL 1.0 - 4.8 K/uL [facility] Lymphocytes/100 WBC (Bld) 28.8 % [facility] MCH (RBC) [Entitic mass] 30.7 pg 27.0 - 31.3 pg [facility] MCHC (RBC) [Mass/Vol] 35.0 % 33.0 - 37.0 % [facility] MCV (RBC) [Entitic vol] 87.6 fL 79.4 - 94.8 fL [facility] Monocytes (Bld) [#/Vol] 0.5 10*3/uL 0.2 - 0.8 K/uL [facility] Monocytes/100 WBC (Bld) 6.8 % [facility] Neutrophils Absolute 4.8 K/uL 1.4 - 6 .5 K/uL [facility] Neutrophils/100 WBC (Bld) 59.1 % [facility] Platelet distribution width (Bld) [Ratio] 12.6 % 11.5 - 14.5 % [facility] Platelets (Bld) [#/Vol] 240 10*3/uL 130 - 400 K/uL [facility] RBC (Bld) [#/Vol] 4.76 10*6/uL [facility] WBC (Bld) [#/Vol] 8.1 10*3/uL 4.8 - 10.8 K/uL [facility] CMPon 07-10-2022 Albumin [Mass/Vol] 4.3 g/dL 3.5 - 4.6 g/dL [facility] ALP (Bld) [Catalytic activity/Vol] 79 U/L 40 - 130 U/L [facility] ALT [Catalytic activity/Vol] 14 U/L 0 - 33 U/L [facility] Anion gap [Moles/Vol] 13 mmol/L [facility] AST [Catalytic activity/Vol] 18 U/L 0 - 35 U/L [facility] Comment on above: Specimen hemolysis h as exceeded the interference as defined by Mariah. Value may be falsely increased. Suggest recollection if clinically indicated. Bilirubin [Mass/Vol] mg/dL 0.2 - 0 .7 mg/dL [facility] Calcium [Mass/Vol] 9.8 mg/dL 8.5 - 9.9 mg/dL [facility] Chloride [Moles/Vol] 103 mmol/L [facility] CO2 [Moles/Vol] 24 mmol/L [facility] Creatinine [Mass/Vol] 0.55 mg/dL 0.50 - 0.90 mg/dL [facility] GFR/1.73 sq M.predicted MDRD (S/P/Bld) [Vol rate/Area] 60 - PINF [facility] Comment on above: Pediatric calculator link https://www.kidney.org/professionals/kdoqi/gfr_calculatorped [...] [Mass/Vol] 3.3 g/dL 2.3 - 3.5 g/dL [facility] Glucose [Mass/Vol] 85 mg/dL 70 - 99 mg/dL [facility] Potassium [Moles/Vol] 4.0 mmol/L [facility] Protein [Mass/Vol] 7.6 g/dL 6.3 - 8.0 g/dL [facility] Sodium [Moles/Vol] 140 mmol/L [facility] Urea nitrogen (BldV) [Mass/Vol] 20 mg/dL 6 - 20 mg/dL [facility] CT KIDNEY WO CONTRASTon 06-29 1. No acute disease. 2. Nonobstructing bilateral nephrolithiasis. 3. Normal appendix. RECOMMENDATIONS: Careful clinical correlation and follow up recommended. [facility] EXAMINATION: CT OF THE ABDOMEN AND [...] Right gonadal vein calcifications. Bones/Soft Tissues: Negative. [facility] Angel Selby MD - 07/10/2022 EXAMINATION: [...] Careful clinical correlation and follow up recommended. [employer] [facility] Work Phone: Radiology Study observation (narrative) [facility] [employer] Work Phone: CT KIDNEY WO CONTRASTOrdered By: Angel Selby on 07-10-2022 [facility] [employer] Work Phone: Lactic Acidon 07-10-2022 Lactate [Moles/Vol] 1.5 mmol/L 0.5 - 2. 2 mmol/L [facility] Lipaseon 07-10-2022 Lipase [Catalytic activity/Vol] 34 U/L 12 - 95 U/L [facility] Microscopic Urinalysison Bacteria, UA Negative Negative /HPF [facility] Epithelial Cells, UA 10-20 [facility] Hyaline Casts, UA 1-3 [facility] RBC (U) [#/Vol] /uL High [facility] WBC, UA 6-9 Abnormal [facility] No Panel Informationon 07-10 [facility] Interpretation and review of laboratory results Abnormal [facility] Urinalysis with Reflex to Cu ltureon 07-10-2022 Bilirubin Urine Negative Negative [facility] Blood, Urine LARGE Abnormal Negative [facility] Clarity, UA CLOUDY Abnormal Clear [facility] Color, UA Yellow Straw/Mower ow [facility] Glucose, Ur >=1000 Abnormal Negative mg/dL [facility] Ketones Ql (U) TRACE Abnormal Negative mg/dL [facility] Leukocyte esterase Test strip Ql (U) SMALL Abnormal Negative [facility] Nitrite, Urine Negative Negative [facility] pH, UA 5.5 5.0 - 9.0 [facility] Protein, UA Negative Negative mg/dL [facility] Specific Dent, UA 1.032 1.005 - 1.030 [facility] Urine Reflex to Culture Not Indicated [facility] Urobilinogen, Urine 0.2 [facility] Urinalysis, reflex to cultur andre 07-10-2022 Urine Reflexed to Culture Not Indicated Normal [facility] Comment on above: Performed By: #### U AR #### [facility] [address] [place] [address] Bilirubin Ql (U) Negative Normal Negative [facility] Comment on above: Performed By: #### U AR #### [facility] [address] [place] [address] Clarity (U) CLOUDY Abnormal Clear [facility] Comment on above: Performed By: #### U AR #### [facility] [address] [place] [address] Color (U) Yellow Normal Straw/Mower [facility] Comment on above: Performed By: #### U AR #### [facility] [address] [place] [address] Glucose Ql (U) >=1000 Abnormal Negative [facility] Comment on above: Performed By: #### U AR #### [facility] [address] [place] [address] Hemoglobin Ql (U) LARGE Abnormal Negative [facility] Comment on above: Performed By: #### U AR #### [facility] [address] [place] [address] Ketones Ql (U) TRACE Abnormal Negative [facility] Comment on above: Performed By: #### U AR #### [facility] [address] [place] [address] Leukocyte esterase Test strip Ql (U) SMALL Abnormal Negative [facility] Comment on above: Performed By: #### U AR #### [facility] [address] [place] [address] Nitrite Ql (U) Negative Normal Negative [facility] Comment on above: Performed By: #### U AR #### [facility] [address] [place] [address] pH (U) 5.5 [pH] Normal 5.0-9.0 [facility] Comment on above: Performed By: #### U AR #### [facility] [address] [place] [address] Protein Ql (U) Negative Normal Negative [facility] Comment on above: Performed By: #### U AR #### [facility] [address] [place] [address] Specific gravity (U) [Rel density] 1.032 Normal 1.005-1.03 [facility] Comment on above: Performed By: #### U AR #### [facility] [address] [place] [address] Urobilinogen Qn (U) 0.2 {Diaz'U}/dL Normal < 2.0 [facility] Comment on above: Performed By: #### U AR #### [facility] [address] [place] [address] Urine Microscopicon 07-10-19 23 Bacteria LM.HPF (Urine sed) [#/Area] Negative Normal Negative [facility] Comment on above: Performed By: #### U NEYMAR #### [facility] [address] [place] [address] Urine Epithelial Cells Auto 10-20 Normal 0-5 [facility] Comment on above: Performed By: #### U NEYMAR #### [facility] [address] [place] [address] Urine Hyaline Casts Auto 1-3 Normal 0-5 [facility] Comment on above: Performed By: #### U NEYMAR #### [facility] [address] [place] [address] Urine RBC Auto >100 Critically high 0-5 [facility] Comment on above: Performed By: #### U NEYMAR #### [facility] [address] [place] [address] Urine WBC Auto 6-9 Abnormal 0-5 [facility] Comment on above: Performed By: #### U NEYMAR #### [facility] [address] [place] [address] Basophils Auto (Bld) [#/Vol] Ordered By: Yehuda Herrera on 07-04-2022 Basophils (Bld) [#/Vol] 0.1 10*3/uL 0.0-0.2 [facility] Basophils/100 WBC Auto (Bld) Ordered By: Yehuda Herrera on 07-04-2022 Basophils/100 WBC (Bld) 1.5 % . [facility] Body fluid albumin measureme nt (mass/volume)Ordered By: Yehuda Herrera on 07-04-2022 Albumin (Body fld) [Mass/Vol] 4.0 g/dL 3.2-5.5 [facility] Creatinine and Glomerular fi ltration rate.predicted panel (S/P/Bld)Ordered By: Yehuda Herrera on 07-04-2022 Creatinine [Mass/Vol] 0.71 mg/dL 0.44-1.03 [facility] Direct bilirubin measurement Ordered By: Yehuda Herrera on 07-04-2022 Bilirubin.direct [Mass/Vol] mg/dL 0.0-0.4 [facility] Eosinophils Auto (Bld) [#/Vo l]Ordered By: Yehuda Herrera on 07-04-2022 Eosinophils (Bld) [#/Vol] 0.3 10*3/uL 0.0-0.45 [facility] Eosinophils/100 WBC Auto (Bl d)Ordered By: Yehuda Herrera on 07-04-2022 Eosinophils/100 WBC (Bld) 3.5 % . [facility] Erythrocyte distribution wid th Auto (RBC) [Ratio]Ordered By: Yehuda Herrera on 07-04-2022 Erythrocyte distribution width (RBC) [Ratio] 12.7 % 11.9-15.3 [facility] Estimated glomerular filtrat ion rate (GFR) non- AmericanOrdered By: Yehuda Herrera on 07-04-2022 GFR/1.73 sq M.predicted among non-blacks MDRD (S/P/Bld) [Vol rate/Area] > 60 mL/Min [facility] Globulin Calc (S) [Mass/Vol] Ordered By: Yehuda Herrera on 07-04-2022 Globulin (S) [Mass/Vol] 3.1 g/dL [facility] Hematocrit Auto (Bld) [Volum e fraction]Ordered By: Yehuda Herrera on 07-04-2022 Hematocrit (Bld) [Volume fraction] 39.3 % 34.0-46.4 [facility] Hemoglobin [Mass/volume] in BloodOrdered By: Yehuda Herrera on 07-04-2022 Hemoglobin (Bld) [Mass/Vol] 13.5 g/dL 11.8-15.4 [facility] Laboratory - Chemistry and C hemistry - challengeOrdered By: Yehuda Herrera on 07-04-2022 Lipase [Catalytic activity/Vol] 37.0 U/L 22-51 [facility] Leukocytes [#/volume] correc suzanne for nucleated erythrocytes in Blood by Automated counOrdered By: Yehuda Herrera on 07-04-2022 WBC corrected for nucl RBC Auto (Bld) [#/Vol] 8.3 10*3/uL 3.8-11.6 [facility] Lymphocytes Auto (Bld) [#/Vo l]Ordered By: Yehuda Herrera on 07-04-2022 Lymphocytes (Bld) [#/Vol] 2.2 10*3/uL 1.00-4.8 [facility] Lymphocytes/100 WBC Auto (Bl d)Ordered By: Yehuda Herrera on 07-04-2022 Lymphocytes/100 WBC (Bld) 26.1 % . [facility] MCH Auto (RBC) [Entitic mass ]Ordered By: Yehuda Herrera on 07-04-2022 MCH (RBC) [Entitic mass] 30.1 pg 24.7-34.3 [facility] MCHC Auto (RBC) [Mass/Vol]Or dered By: Yehuda Herrera on 07-04-2022 MCHC (RBC) [Mass/Vol] 34.5 g/dL 32.0-35.0 [facility] MCV Auto (RBC) [Entitic vol] Ordered By: Yehuda Herrera on 07-04-2022 MCV (RBC) [Entitic vol] 87.5 fL 80-100 [facility] Monocyte distribution width [Entitic volume] in Blood by AutomatedOrdered By: Yehuda Herrera on 07-04-2022 Monocyte distribution width Auto (Bld) [Entitic vol] 17.25 % 0.00-20.00 [facility] Monocytes Auto (Bld) [#/Vol] Ordered By: Yehuda Herrera on 07-04-2022 Monocytes (Bld) [#/Vol] 0.6 10*3/uL 0.0-0.8 [facility] Monocytes/100 WBC Auto (Bld) Ordered By: Yehuda Herrera on 07-04-2022 Monocytes/100 WBC (Bld) 7.1 % . [facility] Neutrophils Auto (Bld) [#/Vo l]Ordered By: Yehuda Herrera on 07-04-2022 Neutrophils (Bld) [#/Vol] 5.1 10*3/uL 1.8-7.7 [facility] Neutrophils/100 WBC Auto (Bl d)Ordered By: Yehuda Herrera on 07-04-2022 Neutrophils/100 WBC (Bld) 61.8 % . [facility] No Panel InformationOrdered By: Yehuda Herrera on 07-04-2022 Estimated GFR () > 60 mL/Min [facility] Comment on above: GFR estimated refere nce range: According to KDOQI guidelines, <60 ml/min/1.73m2 is sufficient to diagnose a patient with chronic kidney disease. Pharmacy Creatinine Clearance (Chem 129.89 [facility] > 60 mL/Min [facility] 37.0 U/L 22-51 [facility] 129.89 [facility] Nucleated erythrocytes [Pres ence] in Blood by Automated countOrdered By: Yehuda Herrera on 07-04-2022 Nucleated RBC Auto Ql (Bld) 0.1 /100{WBC} 0-0.5 [facility] Platelet mean volume Auto (B ld) [Entitic vol]Ordered By: Yehuda Herrera on 07-04-2022 Platelet mean volume (Bld) [Entitic vol] 6.9 fL 6.3-10.7 [facility] Platelets Auto (Bld) [#/Vol] Ordered By: Yehuda Herrera on 07-04-2022 Platelets (Bld) [#/Vol] 253 10*3/uL 150-450 [facility] Protein [Mass/volume] in Ser um or PlasmaOrdered By: Yehuda Herrera on 07-04-2022 Protein [Mass/Vol] 7.1 g/dL 6.1-7.9 [facility] RBC Auto (Bld) [#/Vol]Ordere d By: Yehuda Herrera on 07-04-2022 RBC (Bld) [#/Vol] 4.49 10*6/uL 3.60-5.00 [facility] Serum or plasma alanine slaughter otransferase measurement without P-5'-P (enzymatic activiOrdered By: Yehuda Herrera on 07-04-2022 ALT No additional P-5'-P [Catalytic activity/Vol] 14 U/L 10-60 [facility] Serum or plasma albumin/glob ulin mass ratioOrdered By: Yehuda Herrera on 07-04-2022 Albumin/Globulin [Mass ratio] 1.3 {ratio} [facility] Serum or plasma alkaline shelby sphatase measurement (enzymatic activity/volume)Ordered By: Yehuda Herrera on 07-04-2022 ALP [Catalytic activity/Vol] 61 U/L 32-92 [facility] Serum or plasma anion gap de terminationOrdered By: Yehuda Herrera on 07-04-2022 Anion gap [Moles/Vol] 14.4 mmol/L 6.0-15.[address] [facility] Serum or plasma aspartate am inotransferase measurement (enzymatic activity/volume)Ordered By: Yehuda Herrera on 07-04-2022 AST [Catalytic activity/Vol] 16 U/L 10-42 [facility] Serum or plasma calcium jesse urement (mass/volume)Ordered By: Yehuda Herrera on 07-04-2022 Calcium [Mass/Vol] 9.7 mg/dL 8.2-10.2 [facility] Serum or plasma chloride marcia surement (moles/volume)Ordered By: Yehuda Herrera on 07-04-2022 Chloride [Moles/Vol] 100 mmol/L 95-114 [facility] Serum or plasma creatinine m easurement with calculation of estimated glomerular filtrOrdered By: Yehuda Herrera on 07-04-2022 Creatinine and Glomerular filtration rate.predicted panel (S/P/Bld) 0.71 mg/dL 0.44-1.03 [facility] Serum or plasma glucose jesse urement (mass/volume)Ordered By: Yehuda Herrera on 07-04-2022 Glucose [Mass/Vol] 119 mg/dL 70-100 [facility] Comment on above: ADA recommended refe rence rangeRandom Glucose Reference Range is dependent on time and content of last meal. Glucose of more than 200 mg/dL in a nonstressed, ambulatory subject supports the diagnosis of Diabetes Mellitus. Serum or plasma non-glucuron idated bilirubin measurement (mass/volume)Ordered By: Yehuda Herrera on 07-04-2022 Bilirubin.indirect [Mass/Vol] TNP [facility] Comment on above: Test not performed Serum or plasma potassium me asurement (moles/volume)Ordered By: Yehuda Herrera on 07-04-2022 Potassium [Moles/Vol] 3.8 mmol/L 3.5-5.1 [facility] Serum or plasma sodium measu rement (moles/volume)Ordered By: Yehuda Herrera on 07-04-2022 Sodium [Moles/Vol] 138 mmol/L 136-146 [facility] Serum or plasma total biliru bin measurement (mass/volume)Ordered By: Yehuda Herrera on 07-04-2022 Bilirubin [Mass/Vol] 0.4 mg/dL 0.3-1.2 [facility] Serum or plasma total carbon dioxide measurement (moles/volume)Ordered By: Yehuda Herrera on 07-04-2022 CO2 [Moles/Vol] 27.4 mmol/L 22.0-30.0 [facility] Serum or plasma urea nitroge n measurement (mass/volume)Ordered By: Yehuda Herrera on 07-04-2022 Urea nitrogen [Mass/Vol] 18 mg/dL 9-23 [facility] WBC Auto (Bld) [#/Vol]Ordere d By: Yehuda Herrera on 07-04-2022 WBC (Bld) [#/Vol] 8.3 10*3/uL 3.8-11.6 [facility] Automated erythrocytes count in urine sediment (number/area)Ordered By: Yehuda Herrera on 07-03-2022 RBC Auto (Urine sed) [#/Area] Innumerable [HPF] 0-4 [facility] Automated leukocytes count i n urine sediment (number/area)Ordered By: Yehuda Herrera on 07-03-2022 WBC Auto (Urine sed) [#/Area] 20-49 [HPF] 0-4 [facility] Bilirubin Auto test strip Ql (U)Ordered By: Yehuda Herrera on 07-03-2022 Bilirubin Ql (U) Negative Negative [facility] Ketones Auto test strip (U) [Mass/Vol]Ordered By: Yehuda Herrera on 07-03-2022 Ketones (U) [Mass/Vol] Negative Negative [facility] Laboratory - UrinalysisOrder ed By: Yehuda Herrera on 07-03-2022 Hyaline casts LM Ql (Urine sed) 0-8 [LPF] 0-8 [facility] No Panel InformationOrdered By: Yehuda Herrera on 07-03-2022 0-8 [LPF] 0-8 [facility] Protein Auto test strip (U) [Mass/Vol]Ordered By: Yehuda Herrera on 07-03-2022 Protein (U) [Mass/Vol] Negative Negative [facility] Squamous epithelial cells de tection in urine sediment by light microscopyOrdered By: Yehuda Herrera on 07-03-2022 Epithelial cells.squamous LM Ql (Urine sed) 10-19 [HPF] 0-2 [facility] Urine appearanceOrdered By: Yehuda Herrera on 07-03-2022 Appearance (U) Slightly cloudy Clear [facility] Urine bacteria detection by automated methodOrdered By: Yehuda Herrera on 07-03-2022 Bacteria Auto Ql (U) None seen None Seen [facility] Urine colorOrdered By: Juarez Herrera on 07-03-2022 Color (U) Other Yellow [facility] Urine culture routineOrdered By: Yehuda Herrera on 07-03-2022 Bacteria identified Cx Nom (U) 2 Days [facility] Urine glucose measurement by automated test strip (mass/volume)Ordered By: Yehuda Herrera on 07-03-2022 Glucose Auto test strip (U) [Mass/Vol] Normal mg/dL Normal [facility] Urine hemoglobin detection b y automated test stripOrdered By: Yehuda Herrera on 07-03-2022 Hemoglobin Auto test strip Ql (U) 3+ Negative [facility] Urine leukocyte esterase det ection by automated test stripOrdered By: Yehuda Herrera on 07-03-2022 Leukocyte esterase Auto test strip Ql (U) 4+ Negative [facility] Urine nitrite detection by a utomated test stripOrdered By: Yehuda Herrera on 07-03-2022 Nitrite Auto test strip Ql (U) Negative Negative [facility] Urine sediment renal epithel ial cell count by microscopy (number/high power field)Ordered By: Yehuda Herrera on 07-03-2022 Epithelial cells.renal LM.HPF (Urine sed) [#/Area] 0-1 [HPF] 0-1 [facility] Urobilinogen Auto test strip (U) [Mass/Vol]Ordered By: Yehuda Herrera on 07-03-2022 Urobilinogen (U) [Mass/Vol] Normal mg/dL Normal [facility] pH Auto test strip (U)Ordere d By: Yehuda Herrera on 07-03-2022 pH (U) 1.020 [pH] 1.001-1.03 0 [facility] pH (U) 6.0 [pH] 5.0-9.0 [facility] C Urineon 06-21-2022 Bacteria identified Cx Nom (U) Normal [facility] Comment on above: Performed By: #### 1 [id number], [id number] ####[facility] [address] [place] [address] Coding Summary.on 06-20-2022 Coding Summary. Normal [facility] Auto Diffon 06-19-2022 Basophils/100 WBC (Bld) 0.9 % Normal 0.0-2.0 [facility] Comment on above: Order Comment: Order Added by Discern Expert. Performed By: #### 2 [id number], 2168580, 23053247, 9687465, 5296776, 9006072 ####[address] [address] Basophils/Leukocytes Auto (Bld) [Pure # fraction] 0.1 E9/L Normal 0.0-0.2 [facility] Comment on above: Order Comment: Order Added by Discern Expert. Performed By: #### 2 376719, 8993325, 45547885, 8133840, 5538293, 4470256 ####[address] [address] Eosinophils/100 WBC (Bld) 5.5 % Normal 0.0-8.0 [facility] Comment on above: Order Comment: Order Added by Discern Expert. Performed By: #### 2 462402, 3852470, 78640482, 2014367, 6414124, 3963374 ####[address] [address] Eosinophils/Leukocytes Auto (Bld) [Pure # fraction] 0.4 E9/L Normal 0.0-0.5 [facility] Comment on above: Order Comment: Order Added by Discern Expert. Performed By: #### 2 865504, 3719543, 35368531, 0635960, 0672771, 1577618 ####[address] [address] Lymphocytes/100 WBC (Bld) 31.7 % Normal 14.0-50.0 [facility] Comment on above: Order Comment: Order Added by Discern Expert. Performed By: #### 2 570308, 5830020, 51320092, 5742538, 2614028, 3291356 ####[address] [address] Lymphocytes/Leukocytes Auto (Bld) [Pure # fraction] 2.1 E9/L Normal 1.0-4.0 [facility] Comment on above: Order Comment: Order Added by Discern Expert. Performed By: #### 2 907640, 5036434, 71351271, 7072907, 4375631, 9545651 ####[facility] [address] [place] [address] Monocytes/100 WBC (Bld) 7.6 % Normal 4.0-14.0 [facility] Comment on above: Order Comment: Order Added by Discern Expert. Performed By: #### 2 305549, 0980686, 12134218, 3547842, 4174025, 8281665 ####[facility] [address] [place] [address] Monocytes/Leukocytes Auto (Bld) [Pure # fraction] 0.5 E9/L Normal 0.2-1.0 [facility] Comment on above: Order Comment: Order Added by Ariel Expert. Performed By: #### 2 164550, 0393792, 42250895, 4190012, 4069496, 5322294 ####[facility] [address] [place] [address] Neutrophils/100 WBC (Bld) 54.3 % Normal 36.0-75.0 [facility] Comment on above: Order Comment: Order Added by Ariel Expert. Performed By: #### 2 784757, 4789374, 83940267, 7770349, 6308226, 5070807 ####[facility] [address] [place] [address] Neutrophils/Leukocytes Auto (Bld) [Pure # fraction] 3.5 E9/L Normal 2.0-7.5 [facility] Comment on above: Order Comment: Order Added by Ariel Expert. Performed By: #### 2 547310, 7501304, 31435338, 0860096, 5983089, 3510413 ####[facility] [address] [place] [address] BMPon 06-19-2022 Creatinine [Mass/Vol] 0.9 mg/dL Normal 0.5-1.3 [facility] Comment on above: Performed By: #### 2 793993, 2863355, 43121686, 3410341, 0078072, 1866459 ####[facility] [address] [place] [address] Urea nitrogen [Mass/Vol] 23 mg/dL High 5-21 [facility] Comment on above: Performed By: #### 2 823301, 1435523, 43506904, 7884730, 1107935, 6137323 ####[facility] [address] [place] [address] Urea nitrogen/Creatinine [Mass ratio] 26 No Units High 10-20 [facility] Comment on above: Performed By: #### 2 541139, 4969912, 63895852, 0562153, 2720429, 4940119 ####[facility] [address] [place] [address] Anion gap [Moles/Vol] 8 mmol/L Normal 6-16 [facility] Comment on above: Performed By: #### 2 503200, 3146187, 00591253, 7240513, 6838658, 8896759 ####[facility] [address] [place] [address] Calcium [Mass/Vol] 9.3 mg/dL Normal 8.9-11.1 [facility] Comment on above: Performed By: #### 2 638880, 8112393, 03600109, 9709421, 0722289, 4480834 ####[facility] [address] [place] [address] Chloride [Moles/Vol] 104 mmol/L Normal 101-111 [facility] Comment on above: Performed By: #### 2 332792, 3973151, 59844727, 8457811, 3486998, 8500117 ####[facility] [address] [place] [address] CO2 [Moles/Vol] 27 mmol/L Normal 21-[address] [facility] Comment on above: Performed By: #### 2 986508, 0356394, 66878938, 8074432, 0706095, 6487171 ####[facility] [address] [place] [address] Glucose [Mass/Vol] 156 mg/dL Normal 55-199 [facility] Comment on above: Result Comment: If t his glucose result represents a fasting glucose, interpretation should refer to the following reference range: 55-99 mg/dL Performed By: #### 2 758824, 5307947, 87864400, 9795269, 0865613, 9950873 ####[facility] [address] [place] [address] Potassium [Moles/Vol] 3.4 mmol/L Low 3.5-5.3 [facility] Comment on above: Performed By: #### 2 157361, 1772786, 27546655, 8254125, 8978973, 8650809 ####[facility] [address] [place] [address] Sodium [Moles/Vol] 136 mmol/L Normal 135-145 [facility] Comment on above: Performed By: #### 2 044312, 1824091, 65775222, 7444136, 6285758, 9405098 ####[facility] [address] [place] [address] CBC w/ Auto Diffon Erythrocyte distribution width (RBC) [Ratio] 13.1 % Normal 10.9-14.2 [facility] Comment on above: Performed By: #### 2 702556, 7664668, 77327914, 4015566, 5303245, 8133461 ####[facility] [address] [place] [address] Hematocrit (Bld) [Volume fraction] 40.1 % Normal 34.0-46.0 [facility] Comment on above: Performed By: #### 2 930904, 9821771, 68638722, 7136372, 4015026, 0092127 ####[facility] [address] [place] [address] Hemoglobin (Bld) [Mass/Vol] 13.8 g/dL Normal 12.0-16.0 [facility] Comment on above: Performed By: #### 2 395995, 4174145, 33063191, 5364825, 2560791, 8555341 ####[address] [address] MCH (RBC) [Entitic mass] 30.7 pg Normal 27.0-34.0 [facility] Comment on above: Performed By: #### 2 949031, 6204160, 32929982, 2039585, 8925721, 8482560 ####[address] [address] MCHC (RBC) [Mass/Vol] 34.5 g/dL Normal 31.4-36.0 [facility] Comment on above: Performed By: #### 2 475247, 5529559, 96645506, 5840476, 0410526, 3102539 ####[address] [address] MCV (RBC) [Entitic vol] 89.1 fL Normal 80.0-100.0 [facility] Comment on above: Performed By: #### 2 585689, 0193775, 71604652, 4117806, 8982765, 8294473 ####[address] [address] Platelet mean volume (Bld) [Entitic vol] 6.8 fL Normal 6.4-10.8 [facility] Comment on above: Performed By: #### 2 942700, 1880113, 51238544, 2455282, 6929395, 1519320 ####[address] [address] Platelets (Bld) [#/Vol] 255.0 E9/L Normal 150.0-500. 0 [facility] Comment on above: Performed By: #### 2 468085, 0741292, 47463585, 1020359, 8934490, 0042209 ####[address] [place] [address] RBC (Bld) [#/Vol] 4.5 E12/L Normal 4.3-5.9 [facility] Comment on above: Performed By: #### 2 310220, 1699596, 00649813, 3180407, 5876523, 6661284 ####[facility] [address] [place] [address] WBC corrected for nucl RBC Auto (Bld) [#/Vol] 6.5 E9/L Normal 4.0-11.[address] [facility] Comment on above: Performed By: #### 2 546941, 9184515, 18985228, 2131414, 0150078, 0176501 ####[facility] [address] [place] [address] CT Abdomen/Pelvis w/o Contra ston 06-19-2022 CT Abdomen/Pelvis w/o Contrast Normal [facility] Consent for Treatmenton 05-30 Consent for Treatment [id number]:12 7 Normal [facility] Discharge Instructionson Discharge Instructions [id number]:1 27 Normal [facility] ED Clinical Summaryon 2021 ED Clinical Summary Normal [facility] ED Note-Physicianon 06-19-20 22 ED Note-Physician Normal [facility] Comment on above: Result Comment: Elec tronically Signed By: Grey Putnam DO\.br\Date and Time Signed: 06/19/22 01:48 EST ED Patient Education Noteon 06-19-2022 ED Patient Education Note Normal [facility] ED Patient Summaryon 022 ED Patient Summary Normal [facility] Hep Func Panelon 06-19-2022 Bilirubin.indirect [Mass or moles/Vol] UTC Abnormal 0.1-0.9 [facility] Comment on above: Result Comment: Resu lt verified by Discern Rule. Performed result UTC (Unable to Calculate) was sent as an Alpha code due the inability to calculate a valid numeric value. Performed By: #### 2 817466, 1790571, 49562473, 6992294, 7102059, 8250096 ####[facility] [address] [place] [address] Albumin [Mass/Vol] 4.2 g/dL Normal 3.3-5.0 [facility] Comment on above: Performed By: #### 2 162065, 3515609, 94916333, 0808855, 8134601, 6840721 ####[facility] [address] [place] [address] Albumin/Globulin (S) [Mass conc ratio] 1.1 Normal 1.1-2.2 [facility] Comment on above: Performed By: #### 2 509492, 9889560, 40590214, 2720911, 2250688, 0454831 ####[address] [place] [address] ALP [Catalytic activity/Vol] 62 Int._Unit/L Normal 21-98 [facility] Comment on above: Performed By: #### 2 146381, 9325474, 59663147, 5394453, 2000644, 4157199 ####[facility] [address] [place] [address] ALT No additional P-5'-P [Catalytic activity/Vol] 14 Int._Unit/L Normal 6-46 [facility] Comment on above: Performed By: #### 2 643928, 3518626, 95363492, 8579896, 6425114, 2552446 ####[facility] [address] [place] [address] AST [Catalytic activity/Vol] 15 Int._Unit/L Normal 5-43 [facility] Comment on above: Performed By: #### 2 293914, 6078385, 23896409, 2560048, 3517631, 7537181 ####[facility] [address] [place] [address] Bilirubin [Mass/Vol] 0.8 mg/dL Normal 0.0-1.1 [facility] Comment on above: Performed By: #### 2 065692, 9710374, 07731070, 3709111, 2822608, 4320337 ####[facility] [address] [place] [address] Bilirubin.direct [Mass/Vol] mg/dL Normal 0.1-0.4 [facility] Comment on above: Performed By: #### 2 836387, 6579164, 67270495, 9077414, 5146408, 9991036 ####[address] [place] [address] Globulin (S) [Mass/Vol] 3.7 g/dL Normal 1.4-4.0 [facility] Comment on above: Performed By: #### 2 734320, 5620820, 83065162, 0039198, 0540303, 8278796 ####[address] [address] Protein [Mass/Vol] 7.9 g/dL High 6.0-7.8 [facility] Comment on above: Performed By: #### 2 500783, 2861926, 91467037, 5243695, 6562611, 7696964 ####[address] [address] Lipase Levelon 06-19-2022 Lipase [Catalytic activity/Vol] 46 U/L Normal 13-58 [facility] Comment on above: Performed By: #### 2 017650, 6602372, 43972106, 7244274, 5846670, 9273984 ####[facility] [address] [place] [address] RAD - Preliminary Cat Scan R eporton 06-19-2022 RAD - Preliminary Cat Scan Report [id number]#[id number]:1 27 Normal [facility] UA With Cult Reflexon 2021 Bacteria LM Ql (Urine sed) 1+ /HPF Abnormal Trace [facility] Comment on above: Performed By: #### 1 4212742, 8635549 ####[facility] [address] [place] [address] Bilirubin Ql (U) Negative Normal Negative [facility] Comment on above: Performed By: #### 1 2413679, 9874589 ####[facility] [address] [place] [address] Clarity (U) CLOUDY Abnormal Clear [facility] Comment on above: Performed By: #### 1 0427900, 8950247 ####[facility] [address] [place] [address] Color (U) DARK YELLO Invalid Interpretation Code [facility] Comment on above: Performed By: #### 1 2532693, 4584250 ####[address] [address] Epithelial cells.squamous LM.HPF (Urine sed) [#/Area] 5-8 Normal 0-2 [facility] Comment on above: Performed By: #### 1 1742119, 4056680 ####[facility] [address] [place] [address] Glucose Test strip (U) [Mass/Vol] Negative Normal Negative [facility] Comment on above: Performed By: #### 1 8023207, 2203567 ####[facility] [address] [place] [address] Hemoglobin Ql (U) 3+ Abnormal Negative [facility] Comment on above: Performed By: #### 1 3579135, 4968721 ####[facility] [address] [place] [address] Ketones (U) [Mass/Vol] Negative Normal Negative [facility] Comment on above: Performed By: #### 1 9877682, 7881158 ####[facility] [address] [place] [address] [place].plasma/[place] .RBC (Bld) [Mass ratio] 21-30 Abnormal 0-3 [facility] Comment on above: Performed By: #### 1 6323253, 3154884 ####[facility] [address] [place] [address] Nitrite Ql (U) Negative Normal Negative [facility] Comment on above: Performed By: #### 1 0583422, 3466075 ####[facility] [address] [place] [address] pH (U) 5.5 [pH] Invalid Interpretation Code 5.0-9.0 [facility] Comment on above: Performed By: #### 1 8519874, 5652768 ####[address] [address] Protein (U) [Mass/Vol] TRACE Abnormal Negative [facility] Comment on above: Performed By: #### 1 7840378, 7412359 ####[address] [address] Specific gravity (U) [Rel density] >=1.030 Invalid Interpretation Code 1.005-1.03 0 [facility] Comment on above: Performed By: #### 1 9319913, 1081026 ####[address] [address] Type of Urine collection method Clean Catch Normal [facility] Comment on above: Performed By: #### 1 8250674, 4362066 ####[address] [address] Urobilinogen Qn (U) 1.0 {Diaz'U}/dL Normal 0.0-1.0 [facility] Comment on above: Performed By: #### 1 9016327, 7789615 ####[address] [address] WBC Auto Ql (U) TRACE Abnormal Negative [facility] Comment on above: Performed By: #### 1 6945287, 6538420 ####[address] [address] WBC LM.HPF (Urine sed) [#/Area] 6-15 Abnormal 0-5 [facility] Comment on above: Performed By: #### 1 5047635, 3254562 ####[facility] [address] [place] [address] eGFRon 06-19-2022 GFR/1.73 sq M.predicted among blacks MDRD (S/P/Bld) [Vol rate/Area] mL/min/{1.73_m2} Normal >=59 [facility] Comment on above: Order Comment: Order added by Discern Expert. Result Comment: eGFR is race adjusted. AA=. Performed By: #### 2 094530, 8988069, 40488103, 3505230, 0620104, 7257321 ####[facility] [address] [place] [address] GFR/1.73 sq M.predicted among non-blacks MDRD (S/P/Bld) [Vol rate/Area] mL/min/{1.73_m2} Normal >=59 [facility] Comment on above: Order Comment: Order added by Discern Expert. 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 Kidney failure is indicated at less than 15 mL/min/1.73m2. Performed By: #### 2 369920, 5047737, 24259459, 6451069, 6168214, 1994372 ####[facility] [address] [place] [address] CHEMISTRYOrdered By: SYSTEM SYSTEM on 06-18-2022 Albumin [Mass/Vol] 4.2 g/dL Normal 3.3 - 5.0 gm/dL FT Remisol Albumin/Globulin [Mass ratio] 1.1 {ratio} Normal [...] 0.9 mg/dL Normal 0.5 - 1.3 mg/dL [facility]isol GFR/1.73 sq M.predicted among blacks MDRD (S/P/Bld) [Vol rate/Area] mL/min/1.73 m2 Normal >=59mL/min /1.73 m2 [facility] Chem S GFR/1.73 sq M.predicted among non-blacks MDRD (S/P/Bld) [Vol rate/Area] mL/min/1.73 m2 Normal >=59mL/min /1.73 m2 [facility] Chem S Globulin (S) [Mass/Vol] 3.7 g/dL Normal 1.4 - 4.0 gm/dL [facility] Glucose [Mass/Vol] 156 mg/dL Normal 55 - 199 mg/dL [facility] Lipase [Catalytic activity/Vol] 46 U/L Normal [...] 40.1 % Normal 34.0 - 46.0 % FT HemeAutoSS Hemoglobin (Bld) [Mass/Vol] 13.8 g/dL Normal [...] PM) Normal Negative [facility] UA Auto SS [place].plasma/[place] .RBC (Bld) [Mass ratio] 21-30 /HPF Invalid Interpretation Code 0-3/HPF [facility] UA Auto SS Nitrite Ql (U) Negative (06/18/22 10:36 PM) Normal Negative [facility] UA Auto SS pH (U) 5.5 *NA* (06/18/22 10:36 PM) Invalid Interpretation Code 5.0 - 9.0 [facility] UA Auto SS Protein (U) [Mass/Vol] Trace *ABN* (06/18/22 10:36 PM) Invalid Interpretation Code Negative [facility] UA Auto SS Specific gravity (U) [Rel density] >=1.030 *NA* (06/18/22 10:36 PM) Invalid Interpretation Code 1.005 - 1.030 [facility] UA Auto SS UA Spec Desc Clean Catch (06/18/22 10:36 PM) Normal [facility] UA Auto SS Urobilinogen Qn (U) 1.2521947 {Diaz'U}/dL Normal 0.0 - 1.0 EU/dL [facility] UA Auto SS WBC Auto Ql (U) Trace *ABN* (06/18/22 10:36 PM) Invalid Interpretation Code Negative [facility] UA Auto SS WBC LM.HPF (Urine sed) [#/Area] 6-15 /HPF Invalid Interpretation Code 0-5/HPF [facility] UA Auto SS Glucose Glucometer (BldC) [M ass/Vol]Ordered By: Tim Feng on 06-09-2022 Glucose [Mass/Vol] 99 mg/dL [facility] Comment on above: Random Glucose Refer ence Range is dependent on time and content of last meal. Glucose of more than 200 mg/dL in a nonstressed, ambulatory subject supports the diagnosis of Diabetes Mellitus. Automated erythrocytes count in urine sediment (number/area)Ordered By: Tim Feng on 06-08-2022 RBC Auto (Urine sed) [#/Area] Innumerable [HPF] 0-4 [facility] Automated leukocytes count i n urine sediment (number/area)Ordered By: Tim Feng on 06-08-2022 WBC Auto (Urine sed) [#/Area] 20-49 [HPF] 0-4 [facility] Basophils Auto (Bld) [#/Vol] Ordered By: Tim Feng on 06-08-2022 Basophils (Bld) [#/Vol] 0.1 10*3/uL 0.0-0.2 [facility] Basophils/100 WBC Auto (Bld) Ordered By: Tim Feng on 06-08-2022 Basophils/100 WBC (Bld) 1.1 % . [facility] Bilirubin Test strip Ql (U)O rdered By: Tim Feng on 06-08-2022 Bilirubin Ql (U) Negative Negative [facility] Body fluid albumin measureme nt (mass/volume)Ordered By: Tim Feng on 06-08-2022 Albumin (Body fld) [Mass/Vol] 4.1 g/dL 3.2-5.5 [facility] Color Auto (U)Ordered By: Tyrone Feng on 06-08-2022 Color (U) Yellow Yellow [facility] Creatinine and Glomerular fi ltration rate.predicted panel (S/P/Bld)Ordered By: Tim Feng on 06-08-2022 Creatinine [Mass/Vol] 0.64 mg/dL 0.44-1.03 [facility] Direct bilirubin measurement Ordered By: Tim Feng on 06-08-2022 Bilirubin.direct [Mass/Vol] mg/dL 0.0-0.4 [facility] Eosinophils Auto (Bld) [#/Vo l]Ordered By: Tim Feng on 06-08-2022 Eosinophils (Bld) [#/Vol] 1.1 10*3/uL 0.0-0.45 [facility] Eosinophils/100 WBC Auto (Bl d)Ordered By: Tim Feng on 06-08-2022 Eosinophils/100 WBC (Bld) 14.8 % . [facility] Erythrocyte distribution wid th Auto (RBC) [Ratio]Ordered By: Tim Feng on 06-08-2022 Erythrocyte distribution width (RBC) [Ratio] 12.9 % 11.9-15.3 [facility] Estimated glomerular filtrat ion rate (GFR) non- AmericanOrdered By: Tim Feng on 06-08-2022 GFR/1.73 sq M.predicted among non-blacks MDRD (S/P/Bld) [Vol rate/Area] > 60 mL/Min [facility] Globulin Calc (S) [Mass/Vol] Ordered By: Tim Feng on 06-08-2022 Globulin (S) [Mass/Vol] 3.7 g/dL [facility] HCG ( test) IA.rapi d Ql (U)Ordered By: Tim Feng on 06-08-2022 HCG ( test) Ql (U) Negative [facility] Hematocrit Auto (Bld) [Volum e fraction]Ordered By: Tim Feng on 06-08-2022 Hematocrit (Bld) [Volume fraction] 41.9 % 34.0-46.4 [facility] Hemoglobin [Mass/volume] in BloodOrdered By: Tim Feng on 06-08-2022 Hemoglobin (Bld) [Mass/Vol] 14.1 g/dL 11.8-15.4 [facility] Ketones Auto test strip (U) [Mass/Vol]Ordered By: Tim Feng on 06-08-2022 Ketones (U) [Mass/Vol] Negative Negative [facility] Laboratory - Chemistry and C hemistry - challengeOrdered By: Tim Feng on 06-08-2022 Lipase [Catalytic activity/Vol] 42.0 U/L 22-51 [facility] Laboratory - UrinalysisOrder ed By: Tim Feng on 06-08-2022 Hyaline casts LM Ql (Urine sed) 0-8 [LPF] 0-8 [facility] Leukocytes [#/volume] correc suzanne for nucleated erythrocytes in Blood by Automated counOrdered By: Tim Feng on 06-08-2022 WBC corrected for nucl RBC Auto (Bld) [#/Vol] 7.5 10*3/uL 3.8-11.6 [facility] Lymphocytes Auto (Bld) [#/Vo l]Ordered By: Tim Feng on 06-08-2022 Lymphocytes (Bld) [#/Vol] 2.2 10*3/uL 1.00-4.8 [facility] Lymphocytes/100 WBC Auto (Bl d)Ordered By: Tim Feng on 06-08-2022 Lymphocytes/100 WBC (Bld) 29.7 % . [facility] MCH Auto (RBC) [Entitic mass ]Ordered By: Tim Feng on 06-08-2022 MCH (RBC) [Entitic mass] 30.0 pg 24.7-34.3 [facility] MCHC Auto (RBC) [Mass/Vol]Or dered By: Tim Feng on 06-08-2022 MCHC (RBC) [Mass/Vol] 33.6 g/dL 32.0-35.0 [facility] MCV Auto (RBC) [Entitic vol] Ordered By: Tim Feng on 12-11-2022 MCV (RBC) [Entitic vol] 89.2 fL 80-100 [facility] Monocyte distribution width [Entitic volume] in Blood by AutomatedOrdered By: Tim Feng on 06-08-2022 Monocyte distribution width Auto (Bld) [Entitic vol] 17.42 % 0.00-20.00 [facility] Monocytes Auto (Bld) [#/Vol] Ordered By: Tim Feng on 06-08-2022 Monocytes (Bld) [#/Vol] 0.5 10*3/uL 0.0-0.8 [facility] Monocytes/100 WBC Auto (Bld) Ordered By: Tim Feng on 06-08-2022 Monocytes/100 WBC (Bld) 7.3 % . [facility] Neutrophils Auto (Bld) [#/Vo l]Ordered By: Tim Feng on 06-08-2022 Neutrophils (Bld) [#/Vol] 3.6 10*3/uL 1.8-7.7 [facility] Neutrophils/100 WBC Auto (Bl d)Ordered By: Tim Feng on 06-08-2022 Neutrophils/100 WBC (Bld) 47.1 % . [facility] Nitrite Test strip Ql (U)Ord ered By: Tim Feng on 06-08-2022 Nitrite Ql (U) Negative Negative [facility] No Panel InformationOrdered By: Tim Feng on 06-08-2022 Bedside Glucose #2 Comment Will notify /shalom [facility] Bedside Glucose Comment See comment [facility] Comment on above: Glu2: FOLLOW HYPOGLY CEMIC See comment [facility] Will notify /shalom [facility] Estimated GFR () > 60 mL/Min [facility] Comment on above: GFR estimated refere nce range: According to KDOQI guidelines, <60 ml/min/1.73m2 is sufficient to diagnose a patient with chronic kidney disease. Pharmacy Creatinine Clearance (Chem 141.63 [facility] > 60 mL/Min [facility] 42.0 U/L 22-51 [facility] 141.63 [facility] 0-8 [LPF] 0-8 [facility] Nucleated erythrocytes [Pres ence] in Blood by Automated countOrdered By: Tim Feng on 06-08-2022 Nucleated RBC Auto Ql (Bld) 0.1 /100{WBC} 0-0.5 [facility] Platelet mean volume Auto (B ld) [Entitic vol]Ordered By: Tim Feng on 06-08-2022 Platelet mean volume (Bld) [Entitic vol] 6.9 fL 6.3-10.7 [facility] Platelets Auto (Bld) [#/Vol] Ordered By: Tim Feng on 06-08-2022 Platelets (Bld) [#/Vol] 268 10*3/uL 150-450 [facility] Protein Auto test strip (U) [Mass/Vol]Ordered By: Tim Feng on 06-08-2022 Protein (U) [Mass/Vol] Negative Negative [facility] Protein [Mass/volume] in Ser um or PlasmaOrdered By: Tim Feng on 06-08-2022 Protein [Mass/Vol] 7.8 g/dL 6.1-7.9 [facility] RBC Auto (Bld) [#/Vol]Ordere d By: Tim Feng on 06-08-2022 RBC (Bld) [#/Vol] 4.69 10*6/uL 3.60-5.00 [facility] Serum or plasma alanine slaughter otransferase measurement without P-5'-P (enzymatic activiOrdered By: Tim Feng on 06-08-2022 ALT No additional P-5'-P [Catalytic activity/Vol] 14 U/L 10-60 [facility] Serum or plasma albumin/glob ulin mass ratioOrdered By: Tim Feng on 06-08-2022 Albumin/Globulin [Mass ratio] 1.1 {ratio} [facility] Serum or plasma alkaline shelby sphatase measurement (enzymatic activity/volume)Ordered By: Tim Feng on 06-08-2022 ALP [Catalytic activity/Vol] 60 U/L 32-92 [facility] Serum or plasma anion gap de terminationOrdered By: Tim Feng on 06-08-2022 Anion gap [Moles/Vol] 13.8 mmol/L 6.0-15.[address] [facility] Serum or plasma aspartate am inotransferase measurement (enzymatic activity/volume)Ordered By: Tim Feng on 06-08-2022 AST [Catalytic activity/Vol] 17 U/L 10-42 [facility] Serum or plasma calcium jesse urement (mass/volume)Ordered By: Tim Feng on 06-08-2022 Calcium [Mass/Vol] 9.7 mg/dL 8.2-10.2 [facility] Serum or plasma chloride marcia surement (moles/volume)Ordered By: Tim Feng on 06-08-2022 Chloride [Moles/Vol] 101 mmol/L 95-114 [facility] Serum or plasma creatinine m easurement with calculation of estimated glomerular filtrOrdered By: Tim Feng on 06-08-2022 Creatinine and Glomerular filtration rate.predicted panel (S/P/Bld) 0.64 mg/dL 0.44-1.03 [facility] Serum or plasma glucose jesse urement (mass/volume)Ordered By: Tim Feng on 06-08-2022 Glucose [Mass/Vol] 47 mg/dL 70-100 [facility] Comment on above: Results calledat 230 1 on 06/08/22 ADA recommended reference rangeRandom Glucose Reference Range is dependent on time and content of last meal. Glucose of more than 200 mg/dL in a nonstressed, ambulatory subject supports the diagnosis of Diabetes Mellitus. Serum or plasma non-glucuron idated bilirubin measurement (mass/volume)Ordered By: Tim Feng on 06-08-2022 Bilirubin.indirect [Mass/Vol] TNP [facility] Comment on above: Test not performed Serum or plasma potassium me asurement (moles/volume)Ordered By: Tim Feng on 06-08-2022 Potassium [Moles/Vol] 4.1 mmol/L 3.5-5.1 [facility] Serum or plasma sodium measu rement (moles/volume)Ordered By: Tim Feng on 06-08-2022 Sodium [Moles/Vol] 139 mmol/L 136-146 [facility] Serum or plasma total biliru bin measurement (mass/volume)Ordered By: Tim Feng on 06-08-2022 Bilirubin [Mass/Vol] 0.5 mg/dL 0.3-1.2 [facility] Serum or plasma total carbon dioxide measurement (moles/volume)Ordered By: Tim Feng on 06-08-2022 CO2 [Moles/Vol] 28.3 mmol/L 22.0-30.0 [facility] Serum or plasma urea nitroge n measurement (mass/volume)Ordered By: Tim Feng on 06-08-2022 Urea nitrogen [Mass/Vol] 18 mg/dL 9-23 [facility] Specific gravity Auto test s trip (U) [Rel density]Ordered By: Tim Feng on 06-08-2022 Specific gravity (U) [Rel density] 1.026 1.001-1.03 0 [facility] Squamous epithelial cells de tection in urine sediment by light microscopyOrdered By: Tim Feng on 06-08-2022 Epithelial cells.squamous LM Ql (Urine sed) 5-9 [HPF] 0-2 [facility] Urine bacteria detection by automated methodOrdered By: Tim Feng on 06-08-2022 Bacteria Auto Ql (U) None seen None Seen [facility] Urine clarity by refractomet ry automatedOrdered By: Tim Feng on 06-08-2022 Clarity Refractometry automated (U) Cloudy Clear [facility] Urine culture routineOrdered By: Tim Feng on 06-08-2022 Bacteria identified Cx Nom (U) 2 Days [facility] Urine glucose measurement by automated test strip (mass/volume)Ordered By: Tim Feng on 06-08-2022 Glucose Auto test strip (U) [Mass/Vol] Normal mg/dL Normal [facility] Urine hemoglobin detection b y automated test stripOrdered By: Tim Feng on 06-08-2022 Hemoglobin Auto test strip Ql (U) 3+ Negative [facility] Urine leukocyte esterase det ection by automated test stripOrdered By: Tim Feng on 06-08-2022 Leukocyte esterase Auto test strip Ql (U) 3+ Negative [facility] Urobilinogen Auto test strip (U) [Mass/Vol]Ordered By: Tim Feng on 06-08-2022 Urobilinogen (U) [Mass/Vol] Normal mg/dL Normal [facility] WBC Auto (Bld) [#/Vol]Ordere d By: Tim Feng on 06-08-2022 WBC (Bld) [#/Vol] 7.5 10*3/uL 3.8-11.6 [facility] pH Auto test strip (U)Ordere d By: Tim Feng on 06-08-2022 pH (U) 5.5 [pH] 5.0-9.0 [facility] Glucose Glucometer (BldC) [M ass/Vol]Ordered By: Tristan Pyle on 05-28-2022 Glucose [Mass/Vol] 66 mg/dL [facility] Comment on above: Random Glucose Refer ence Range is dependent on time and content of last meal. Glucose of more than 200 mg/dL in a nonstressed, ambulatory subject supports the diagnosis of Diabetes Mellitus. No Panel InformationOrdered By: Tristan Pyle on 05-28-2022 Bedside Glucose #2 Comment Cleaned meter [facility] Bedside Glucose Comment See comment [facility] Comment on above: Glu2: FOLLOW HYPOGLY CEMIC Automated erythrocytes count in urine sediment (number/area)Ordered By: Tristan Pyle on 05-27-2022 RBC Auto (Urine sed) [#/Area] Innumerable [HPF] 0-4 [facility] Automated leukocytes count i n urine sediment (number/area)Ordered By: Tristan Pyle on 05-27-2022 WBC Auto (Urine sed) [#/Area] 3-4 [HPF] 0-4 [facility] Basophils Auto (Bld) [#/Vol] Ordered By: Tristan Pyle on 05-27-2022 Basophils (Bld) [#/Vol] 0.1 10*3/uL 0.0-0.2 [facility] Basophils/100 WBC Auto (Bld) Ordered By: Tristan Pyle on 05-27-2022 Basophils/100 WBC (Bld) 0.8 % . [facility] Bilirubin Test strip Ql (U)O rdered By: Tristan Pyle on 05-27-2022 Bilirubin Ql (U) Negative Negative [facility] Body fluid albumin measureme nt (mass/volume)Ordered By: Tristan Pyle on 05-27-2022 Albumin (Body fld) [Mass/Vol] 4.8 g/dL 3.2-5.5 [facility] Color Auto (U)Ordered By: Olamide Pyle on 05-27-2022 Color (U) Yellow Yellow [facility] Creatinine and Glomerular fi ltration rate.predicted panel (S/P/Bld)Ordered By: Tristan Pyle on 05-27-2022 Creatinine [Mass/Vol] 0.73 mg/dL 0.44-1.03 [facility] Eosinophils Auto (Bld) [#/Vo l]Ordered By: Tristan Pyle on 05-27-2022 Eosinophils (Bld) [#/Vol] 0.6 10*3/uL 0.0-0.45 [facility] Eosinophils/100 WBC Auto (Bl d)Ordered By: Tristan Pyle on 05-27-2022 Eosinophils/100 WBC (Bld) 6.4 % . [facility] Erythrocyte distribution wid th Auto (RBC) [Ratio]Ordered By: Tristan Pyle on 05-27-2022 Erythrocyte distribution width (RBC) [Ratio] 13.1 % 11.9-15.3 [facility] Estimated glomerular filtrat ion rate (GFR) non- AmericanOrdered By: Tristan Pyle on 05-27-2022 GFR/1.73 sq M.predicted among non-blacks MDRD (S/P/Bld) [Vol rate/Area] > 60 mL/Min [facility] Globulin Calc (S) [Mass/Vol] Ordered By: Tristan Pyle on 05-27-2022 Globulin (S) [Mass/Vol] 4.1 g/dL [facility] Hematocrit Auto (Bld) [Volum e fraction]Ordered By: Tristan Pyle on 05-27-2022 Hematocrit (Bld) [Volume fraction] 45.9 % 34.0-46.4 [facility] Hemoglobin [Mass/volume] in BloodOrdered By: Tristan Pyle on 05-27-2022 Hemoglobin (Bld) [Mass/Vol] 15.9 g/dL 11.8-15.4 [facility] Ketones Auto test strip (U) [Mass/Vol]Ordered By: Tristan Pyle on 05-27-2022 Ketones (U) [Mass/Vol] Negative Negative [facility] and C hemistry - challengeOrdered By: Tristan Pyle on 05-27-2022 Lipase [Catalytic activity/Vol] 39.0 U/L 22-51 [facility] Laboratory - UrinalysisOrder ed By: Tristan Pyle on 05-27-2022 Hyaline casts LM Ql (Urine sed) 0-8 [LPF] 0-8 [facility] Leukocytes [#/volume] correc suzanne for nucleated erythrocytes in Blood by Automated counOrdered By: Tristan Pyle on 05-27-2022 WBC corrected for nucl RBC Auto (Bld) [#/Vol] 9.1 10*3/uL 3.8-11.6 [facility] Lymphocytes Auto (Bld) [#/Vo l]Ordered By: Tristan Pyle on 05-27-2022 Lymphocytes (Bld) [#/Vol] 2.5 10*3/uL 1.00-4.8 [facility] Lymphocytes/100 WBC Auto (Bl d)Ordered By: Tristan Pyle on 05-27-2022 Lymphocytes/100 WBC (Bld) 27.9 % . [facility] MCH Auto (RBC) [Entitic mass ]Ordered By: Tristan Pyle on 05-27-2022 MCH (RBC) [Entitic mass] 30.6 pg 24.7-34.3 [facility] MCHC Auto (RBC) [Mass/Vol]Or dered By: Tristan Pyle on 05-27-2022 MCHC (RBC) [Mass/Vol] 34.6 g/dL 32.0-35.0 [facility] MCV Auto (RBC) [Entitic vol] Ordered By: Tristan Pyle on 05-27-2022 MCV (RBC) [Entitic vol] 88.5 fL 80-100 [facility] Monocyte distribution width [Entitic volume] in Blood by AutomatedOrdered By: Tristan Pyle on 05-27-2022 Monocyte distribution width Auto (Bld) [Entitic vol] 19.37 % 0.00-20.00 [facility] Monocytes Auto (Bld) [#/Vol] Ordered By: Tristan Pyle on 05-27-2022 Monocytes (Bld) [#/Vol] 0.7 10*3/uL 0.0-0.8 [facility] Monocytes/100 WBC Auto (Bld) Ordered By: Tristan Pyle on 05-27-2022 Monocytes/100 WBC (Bld) 7.2 % . [facility] Neutrophils Auto (Bld) [#/Vo l]Ordered By: Tristan Pyle on 05-27-2022 Neutrophils (Bld) [#/Vol] 5.3 10*3/uL 1.8-7.7 [facility] Neutrophils/100 WBC Auto (Bl d)Ordered By: Tristan Pyle on 05-27-2022 Neutrophils/100 WBC (Bld) 57.7 % . [facility] Nitrite Test strip Ql (U)Ord ered By: Tristan Pyle on 05-27-2022 Nitrite Ql (U) Negative Negative [facility] No Panel InformationOrdered By: Tristan Pyle on 05-27-2022 Estimated GFR () > 60 mL/Min [facility] Comment on above: GFR estimated refere nce range: According to KDOQI guidelines, <60 ml/min/1.73m2 is sufficient to diagnose a patient with chronic kidney disease. Pharmacy Creatinine Clearance (Chem 123.36 [facility] Nucleated erythrocytes [Pres ence] in Blood by Automated countOrdered By: Tristan Pyle on 05-27-2022 Nucleated RBC Auto Ql (Bld) 0.2 /100{WBC} 0-0.5 [facility] Platelet mean volume Auto (B ld) [Entitic vol]Ordered By: Tristan Pyle on 05-27-2022 Platelet mean volume (Bld) [Entitic vol] 6.9 fL 6.3-10.7 [facility] Platelets Auto (Bld) [#/Vol] Ordered By: Tristan Pyle on 05-27-2022 Platelets (Bld) [#/Vol] 311 10*3/uL 150-450 [facility] Protein Auto test strip (U) [Mass/Vol]Ordered By: Tristan Pyle on 05-27-2022 Protein (U) [Mass/Vol] Negative Negative Fi [facility] Protein [Mass/volume] in Ser um or PlasmaOrdered By: Tristan Pyle on 05-27-2022 Protein [Mass/Vol] 8.9 g/dL 6.1-7.9 [facility] RBC Auto (Bld) [#/Vol]Ordere d By: Tristan Pyle on 05-27-2022 RBC (Bld) [#/Vol] 5.19 10*6/uL 3.60-5.00 [facility] Serum or plasma alanine slaughter otransferase measurement without P-5'-P (enzymatic activiOrdered By: Tristan Pyle on 05-27-2022 ALT No additional P-5'-P [Catalytic activity/Vol] 13 U/L 10-60 [facility] Serum or plasma albumin/glob ulin mass ratioOrdered By: Tristan Pyle on 05-27-2022 Albumin/Globulin [Mass ratio] 1.2 {ratio} [facility] Serum or plasma alkaline shelby sphatase measurement (enzymatic activity/volume)Ordered By: Tristan Pyle on 05-27-2022 ALP [Catalytic activity/Vol] 68 U/L 32-92 [facility] Serum or plasma anion gap de terminationOrdered By: Tristan Pyle on 05-27-2022 Anion gap [Moles/Vol] 13.1 mmol/L 6.0-15.[address] [facility] Serum or plasma aspartate am inotransferase measurement (enzymatic activity/volume)Ordered By: Tristan Pyle on 05-27-2022 AST [Catalytic activity/Vol] 16 U/L 10-42 [facility] Serum or plasma calcium jesse urement (mass/volume)Ordered By: Tristan Pyle on 05-27-2022 Calcium [Mass/Vol] 10.4 mg/dL 8.2-10.2 [facility] Serum or plasma chloride marcia surement (moles/volume)Ordered By: Tristan Pyle on 05-27-2022 Chloride [Moles/Vol] 102 mmol/L 95-114 [facility] Serum or plasma glucose jesse urement (mass/volume)Ordered By: Tristan Pyle on 05-27-2022 Glucose [Mass/Vol] 49 mg/dL 70-100 [facility] Comment on above: Critical valueresult calledat 2326 on 05/27/22ADA recommended reference rangeRandom Glucose Reference Range is dependent on time and content of last meal. Glucose of more than 200 mg/dL in a nonstressed, ambulatory subject supports the diagnosis of Diabetes Mellitus. Serum or plasma potassium me asurement (moles/volume)Ordered By: Tristan Pyle on 05-27-2022 Potassium [Moles/Vol] 3.2 mmol/L 3.5-5.1 [facility] Serum or plasma sodium measu rement (moles/volume)Ordered By: Tristan Pyle on 05-27-2022 Sodium [Moles/Vol] 139 mmol/L 136-146 [facility] Serum or plasma total biliru bin measurement (mass/volume)Ordered By: Tristan Pyle on 05-27-2022 Bilirubin [Mass/Vol] 0.7 mg/dL 0.3-1.2 [facility] Serum or plasma total carbon dioxide measurement (moles/volume)Ordered By: Tristan Pyle on 05-27-2022 CO2 [Moles/Vol] 27.1 mmol/L 22.0-30.0 [facility] Serum or plasma urea nitroge n measurement (mass/volume)Ordered By: Tristan Pyle on 05-27-2022 Urea nitrogen [Mass/Vol] 16 mg/dL 9-23 [facility] Specific gravity Auto test s trip (U) [Rel density]Ordered By: Tristan Pyle on 05-27-2022 Specific gravity (U) [Rel density] 1.020 1.001-1.03 0 [facility] Squamous epithelial cells de tection in urine sediment by light microscopyOrdered By: Tristan Pyle on 05-27-2022 Epithelial cells.squamous LM Ql (Urine sed) 0-1 [HPF] 0-2 [facility] Urine bacteria detection by automated methodOrdered By: Tristan Pyle on 05-27-2022 Bacteria Auto Ql (U) None seen None Seen [facility] Urine clarity by refractomet ry automatedOrdered By: Tristan Pyle on 05-27-2022 Clarity Refractometry automated (U) Clear Clear [facility] Urine glucose measurement by automated test strip (mass/volume)Ordered By: Tristan Pyle on 05-27-2022 Glucose Auto test strip (U) [Mass/Vol] Normal mg/dL Normal [facility] Urine hemoglobin detection b y automated test stripOrdered By: Tristan Pyle on 05-27-2022 Hemoglobin Auto test strip Ql (U) 3+ Negative [facility] Urine leukocyte esterase det ection by automated test stripOrdered By: Tristan Pyle on 05-27-2022 Leukocyte esterase Auto test strip Ql (U) 1+ Negative [facility] Urobilinogen Auto test strip (U) [Mass/Vol]Ordered By: Tristan Sigalazi on 05-27-2022 Urobilinogen (U) [Mass/Vol] Normal mg/dL Normal [facility] WBC Auto (Bld) [#/Vol]Ordere d By: Tristan Sigalazi on 05-27-2022 WBC (Bld) [#/Vol] 9.1 10*3/uL 3.8-11.6 [facility] pH Auto test strip (U)Ordere d By: Tristan Sigalazi on 05-27-2022 pH (U) 5.0 [pH] 5.0-9.0 [facility] CT KIDNEY STONEon 05-14-2022 CT KIDNEY [...] 2. Nonobstructing right nephrolith. 3. Colonic diverticulosis. [employer] Workstation ID: [id number] Dictated by: MARGUERITE SANDOVAL on ThuMay 14, 2022 10:48:46 PM EST Transcribed by: MYNOR GABRIEL on ThuMay 14, 2022 10:56:21 PM EST Finalized by: MARGUERITE SANDOVAL on ThuMay 14, 2022 11:21:39 PM EST Normal [facility] Comment on above: Order Comment: Injur y/Trauma or Illness?:Illness/Other How long have you had these symptoms (acute/chronic)?:Acute Reason for exam?:FLANK PAIN, HX: KIDNEY STONES Type of Exam?:Unknown Additional signs and symptoms?:UNKNOWN Automated erythrocytes count in urine sediment (number/area)Ordered By: PROVIDER JACQUELINE on 05-01-2022 RBC Auto (Urine sed) [#/Area] Innumerable [HPF] 0-4 [facility] Automated leukocytes count i n urine sediment (number/area)Ordered By: PROVIDER JACQUELINE on 05-01-2022 WBC Auto (Urine sed) [#/Area] 3-4 [HPF] 0-4 [facility] Basophils Auto (Bld) [#/Vol] Ordered By: Joseluis Vega on 05-01-2022 Basophils (Bld) [#/Vol] 0.1 10*3/uL 0.0-0.2 [facility] Basophils/100 WBC Auto (Bld) Ordered By: Joseluis Vega on 05-01-2022 Basophils/100 WBC (Bld) 0.9 % . [facility] Bilirubin Test strip Ql (U)O rdered By: JACINTA PHILLIPS on 05-01-2022 Bilirubin Ql (U) Negative Negative [facility] Body fluid albumin measureme nt (mass/volume)Ordered By: Joseluis Vega on 05-01-2022 Albumin (Body fld) [Mass/Vol] 4.0 g/dL 3.2-5.5 [facility] Color Auto (U)Ordered By: TI PHILLIPS on 05-01-2022 Color (U) Yellow Yellow [facility] Creatinine and Glomerular fi ltration rate.predicted panel (S/P/Bld)Ordered By: Joseluis Vega on 05-01-2022 Creatinine [Mass/Vol] 0.62 mg/dL 0.44-1.03 [facility] Eosinophils Auto (Bld) [#/Vo l]Ordered By: Joseluis Vega on 05-01-2022 Eosinophils (Bld) [#/Vol] 0.6 10*3/uL 0.0-0.45 [facility] Eosinophils/100 WBC Auto (Bl d)Ordered By: Joseluis Vega on 05-01-2022 Eosinophils/100 WBC (Bld) 8.5 % . [facility] Erythrocyte distribution wid th Auto (RBC) [Ratio]Ordered By: Joseluis Vega on 05-01-2022 Erythrocyte distribution width (RBC) [Ratio] 12.7 % 11.9-15.3 [facility] Estimated glomerular filtrat ion rate (GFR) non- AmericanOrdered By: Joseluis Vega on 05-01-2022 GFR/1.73 sq M.predicted among non-blacks MDRD (S/P/Bld) [Vol rate/Area] > 60 mL/Min [facility] Globulin Calc (S) [Mass/Vol] Ordered By: Joseluis Vega on 05-01-2022 Globulin (S) [Mass/Vol] 4.3 g/dL [facility] Hematocrit Auto (Bld) [Volum e fraction]Ordered By: Joseluis Vega on 05-01-2022 Hematocrit (Bld) [Volume fraction] 43.2 % 34.0-46.4 [facility] Hemoglobin [Mass/volume] in BloodOrdered By: Joseluis Vega on 05-01-2022 Hemoglobin (Bld) [Mass/Vol] 14.8 g/dL 11.8-15.4 [facility] Ketones Auto test strip (U) [Mass/Vol]Ordered By: JACINTA PHILLIPS on 05-01-2022 Ketones (U) [Mass/Vol] Negative Negative [facility] Laboratory - Hematology and Cell countsOrdered By: Joseluis Vega on 05-01-2022 Nucleated RBC/100 WBC (Bld) [Ratio] 0.1 % 0-0.5 [facility] Laboratory - UrinalysisOrder ed By: PROVIDER TEMP on 05-01-2022 Hyaline casts LM Ql (Urine sed) None seen [LPF] 0-8 [facility] Leukocytes [#/volume] in Blo od by Automated countOrdered By: Joseluis Vega on 05-01-2022 WBC (Bld) [#/Vol] 7.2 10*3/uL 4.5-11.0 [facility] Lymphocytes Auto (Bld) [#/Vo l]Ordered By: Joseluis Vega on 05-01-2022 Lymphocytes (Bld) [#/Vol] 1.7 10*3/uL 1.00-4.8 [facility] Lymphocytes/100 WBC Auto (Bl d)Ordered By: Joseluis Vega on 05-01-2022 Lymphocytes/100 WBC (Bld) 23.2 % . [facility] MCH Auto (RBC) [Entitic mass ]Ordered By: Joseluis Vega on 05-01-2022 MCH (RBC) [Entitic mass] 30.5 pg 24.7-34.3 [facility] MCHC Auto (RBC) [Mass/Vol]Or dered By: Joseluis Vega on 05-01-2022 MCHC (RBC) [Mass/Vol] 34.3 g/dL 32.0-35.0 [facility] MCV Auto (RBC) [Entitic vol] Ordered By: Joseluis Vega on 05-01-2022 MCV (RBC) [Entitic vol] 88.8 fL 80-100 [facility] Monocytes Auto (Bld) [#/Vol] Ordered By: Joseluis Vega on 05-01-2022 Monocytes (Bld) [#/Vol] 0.5 10*3/uL 0.0-0.8 [facility] Monocytes/100 WBC Auto (Bld) Ordered By: Joseluis Vega on 05-01-2022 Monocytes/100 WBC (Bld) 7.3 % . [facility] Neutrophils Auto (Bld) [#/Vo l]Ordered By: Joseluis Vega on 05-01-2022 Neutrophils (Bld) [#/Vol] 4.4 10*3/uL 1.8-7.7 [facility] Neutrophils/100 WBC Auto (Bl d)Ordered By: Joseluis Vega on 05-01-2022 Neutrophils/100 WBC (Bld) 60.1 % . [facility] Nitrite Test strip Ql (U)Ord ered By: PROVIDER TEMP on 05-01-2022 Nitrite Ql (U) Negative Negative [facility] No Panel InformationOrdered By: Joseluis Vega on 05-01-2022 Estimated GFR () > 60 mL/Min [facility] Comment on above: GFR estimated refere nce range: According to KDOQI guidelines, <60 ml/min/1.73m2 is sufficient to diagnose a patient with chronic kidney disease. Pharmacy Creatinine Clearance (Chem 140.85 [facility] Platelet mean volume Auto (B ld) [Entitic vol]Ordered By: Joseluis Vega on 05-01-2022 Platelet mean volume (Bld) [Entitic vol] 6.9 fL 6.3-10.7 [facility] Platelets Auto (Bld) [#/Vol] Ordered By: Joseluis Vega on 05-01-2022 Platelets (Bld) [#/Vol] 321 10*3/uL 150-450 [facility] Protein Auto test strip (U) [Mass/Vol]Ordered By: PROVIDER JACQUELINE on 05-01-2022 Protein (U) [Mass/Vol] Negative Negative [facility] Protein [Mass/volume] in Ser um or PlasmaOrdered By: Joseluis Vega on 05-01-2022 Protein [Mass/Vol] 8.3 g/dL 6.1-7.9 [facility] RBC Auto (Bld) [#/Vol]Ordere d By: Joseluis Vega on 05-01-2022 RBC (Bld) [#/Vol] 4.87 10*6/uL 3.60-5.00 [facility] Serum or plasma alanine slaughter otransferase measurement without P-5'-P (enzymatic activiOrdered By: Joseluis Vega on 05-01-2022 ALT No additional P-5'-P [Catalytic activity/Vol] 22 U/L 10-60 [facility] Serum or plasma albumin/glob ulin mass ratioOrdered By: Joseluis Vega on 05-01-2022 Albumin/Globulin [Mass ratio] 0.9 {ratio} [facility] Serum or plasma alkaline shelby sphatase measurement (enzymatic activity/volume)Ordered By: Joseluis Vega on 05-01-2022 ALP [Catalytic activity/Vol] 67 U/L 32-92 [facility] Serum or plasma anion gap de terminationOrdered By: Joseluis Vega on 05-01-2022 Anion gap [Moles/Vol] 14.2 mmol/L 6.0-15.[address] [facility] Serum or plasma aspartate am inotransferase measurement (enzymatic activity/volume)Ordered By: Joseluis Vega on 05-01-2022 AST [Catalytic activity/Vol] 27 U/L 10-42 [facility] Serum or plasma calcium jesse urement (mass/volume)Ordered By: Joseluis Vega on 05-01-2022 Calcium [Mass/Vol] 9.9 mg/dL 8.2-10.2 [facility] Serum or plasma chloride marcia surement (moles/volume)Ordered By: Joseluis Vega on 05-01-2022 Chloride [Moles/Vol] 100 mmol/L 95-114 [facility] Serum or plasma glucose jesse urement (mass/volume)Ordered By: Joseluis Vega on 05-01-2022 Glucose [Mass/Vol] 88 mg/dL 70-100 [facility] Comment on above: ADA recommended refe rence rangeRandom Glucose Reference Range is dependent on time and content of last meal. Glucose of more than 200 mg/dL in a nonstressed, ambulatory subject supports the diagnosis of Diabetes Mellitus. Serum or plasma potassium me asurement (moles/volume)Ordered By: Joseluis Vega on 05-01-2022 Potassium [Moles/Vol] 3.8 mmol/L 3.5-5.1 [facility] Serum or plasma sodium measu rement (moles/volume)Ordered By: Joseluis Vega on 05-01-2022 Sodium [Moles/Vol] 139 mmol/L 136-146 [facility] Serum or plasma total biliru bin measurement (mass/volume)Ordered By: Joseluis Vega on 05-01-2022 Bilirubin [Mass/Vol] 0.6 mg/dL 0.3-1.2 [facility] Serum or plasma total carbon dioxide measurement (moles/volume)Ordered By: Joseluis Vega on 05-01-2022 CO2 [Moles/Vol] 28.6 mmol/L 22.0-30.0 [facility] Serum or plasma urea nitroge n measurement (mass/volume)Ordered By: Joseluis Vega on 05-01-2022 Urea nitrogen [Mass/Vol] 14 mg/dL 9-23 [facility] Specific gravity Auto test s trip (U) [Rel density]Ordered By: PROVIDER CHONG on 05-01-2022 Specific gravity (U) [Rel density] 1.020 1.001-1.03 0 [facility] Squamous epithelial cells de tection in urine sediment by light microscopyOrdered By: PROVIDER TEMP on 05-01-2022 Epithelial cells.squamous LM Ql (Urine sed) 0-1 [HPF] 0-2 [facility] Urine bacteria detection by automated methodOrdered By: PROVIDER TEM on 05-01-2022 Bacteria Auto Ql (U) None seen None Seen [facility] Urine clarity by refractomet ry automatedOrdered By: PROVIDER TEM on 05-01-2022 Clarity Refractometry automated (U) Clear Clear [facility] Urine glucose measurement by automated test strip (mass/volume)Ordered By: PROVIDER TEMP on 05-01-2022 Glucose Auto test strip (U) [Mass/Vol] >=1000 mg/dL Normal [facility] Urine hemoglobin detection b y automated test stripOrdered By: PROVIDER TEMP on 05-01-2022 Hemoglobin Auto test strip Ql (U) 3+ Negative [facility] Urine leukocyte esterase det ection by automated test stripOrdered By: PROVIDER TEMP on 05-01-2022 Leukocyte esterase Auto test strip Ql (U) 2+ Negative [facility] Urobilinogen Auto test strip (U) [Mass/Vol]Ordered By: PROVIDER TEMP on 05-01-2022 Urobilinogen (U) [Mass/Vol] Normal mg/dL Normal [facility] pH Auto test strip (U)Ordere d By: PROVIDER TEMP on 05-01-2022 pH (U) 6.0 [pH] 5.0-9.0 [facility] CHEMISTRYOrdered By: Lab ROP User on 04-25-2022 Glucose [Mass/Vol] 163 mg/dL High 55 - 99 mg/dL [facility] POC Subsection Comment on above: Result Comment: Erma sunita Meter POC Device SN [id number] Invalid Interpretation Code [facility] POC Subsection POC User ID [id number] Invalid Interpretation Code [facility] POC Subsection POC Username CALVINDORINA Invalid Interpretation Code [facility] POC Subsection Glucose [Mass/Vol] 131 mg/dL High 55 - 99 mg/dL [facility] POC Subsection Comment on above: Result Comment: Erma sunita Meter POC Device SN [id number] Invalid Interpretation Code [facility] POC Subsection POC User ID [id number] Invalid Interpretation Code [facility] POC Subsection POC Username HERNANDEZWinifredJOHNDORINA Invalid Interpretation Code [facility] POC Subsection Glucose [Mass/Vol] 130 mg/dL High 55 - 99 mg/dL [facility] POC Subsection Comment on above: Result Comment: Joselyn jennings RN/ POC Device SN [id number] Invalid Interpretation Code [facility] POC Subsection POC User ID [id number] Invalid Interpretation Code [facility] POC Subsection POC Username JAYDEN DYLAN Invalid Interpretation Code [facility] POC Subsection CHEMISTRYOrdered By: SYSTEM SYSTEM on 04-21-2022 Albumin [Mass/Vol] 4.2 g/dL Normal 3.3 - 5.0 gm/dL [facility] Remisol Albumin/Globulin [Mass ratio] 1.1 {ratio} Normal 1.1 - 2.2 [facility] Remisol ALP [Catalytic activity/Vol] 57 [iU]/d Normal [...] 0.9 mg/dL Normal 0.5 - 1.3 mg/dL [facility] GFR/1.73 sq M.predicted among blacks MDRD (S/P/Bld) [Vol rate/Area] mL/min/1.73 m2 Normal >=59mL/min /1.73 m2 [facility] Chem S GFR/1.73 sq M.predicted among non-blacks MDRD (S/P/Bld) [Vol rate/Area] mL/min/1.73 m2 Normal >=59mL/min /1.73 m2 [facility] Chem S Globulin (S) [Mass/Vol] 3.7 g/dL Normal 1.4 - 4.0 gm/dL [facility] Protein [Mass/Vol] 7.9 g/dL High 6.0 - 7.8 gm/dL [facility] Urea nitrogen [Mass/Vol] 24 mg/dL High 5 - 21 mg/dL [facility] Urea nitrogen/Creatinine [Mass ratio] 27 mg/mg High 10 - 20 [facility] CHEMISTRYOrdered By: Alcira Muñoz on 04-21-2022 Anion gap [Moles/Vol] 14 mmol/L Normal 6 - 16 mEq/L [facility] Calcium [Mass/Vol] 9.4 mg/dL Normal 8.9 - 11. 1 mg/dL [facility] Chloride [Moles/Vol] 102 mmol/L Normal 101 - 1 11 mmol/L [facility] CO2 [Moles/Vol] 26 mmol/L Normal 21 - 31 mmol/L [facility] Glucose [Mass/Vol] 224 mg/dL High 55 - 199 mg/dL [facility] Lipase [Catalytic activity/Vol] 51 U/L Normal [...] 7.3 fL Normal 6.4 - 10.8 fL [facility] HemeAutoSS Platelets (Bld) [#/Vol] 265.0 E9/L Normal 150.0 - 500.0 E9/L [facility] HemeAutoSS RBC (Bld) [#/Vol] 4.5 E12/L Normal 4.3 - 5.9 E12/L [facility] HemeAutoSS WBC corrected for nucl RBC Auto (Bld) [#/Vol] 7.5 E9/L Normal 4.0 - 11.0 E9/L [facility] HemeAutoSS Laboratory - Microbiology an d Antimicrobial susceptibilityOrdered By: Gaby Reis on 04-21-2022 Bacteria identified Cx Nom (U) 2,000 cfu/ml Mixed skin contaminants [facility] URINALYSISOrdered By: Clau Muñoz on [...] PM) Normal Negative [facility] UA Auto SS [place].plasma/[place] .RBC (Bld) [Mass ratio] 4-20 /HPF Normal 0-3/HPF [facility] UA Auto SS Nitrite Ql (U) Negative (04/21/22 10:13 PM) Normal Negative [facility] UA Auto SS pH (U) 7.0 *NA* (04/21/22 10:13 PM) Invalid Interpretation Code 5.0 - 9.0 [facility] UA Auto SS Protein (U) [Mass/Vol] Negative (04/21/22 10:13 PM) Normal Negative [facility] UA Auto SS Specific gravity (U) [Rel density] 1.025 *NA* (04/21/22 10:13 PM) Invalid Interpretation Code 1.005 - 1.030 [facility] UA Auto SS UA Spec Desc Clean Catch (04/21/22 10:13 PM) Normal [facility] UA Auto SS Urobilinogen Qn (U) [id number] {Diaz'U}/dL Normal 0.0 - 1.0 EU/dL [facility] UA Auto SS WBC Auto Ql (U) 2+ *ABN* (04/21/22 10:13 PM) Invalid Interpretation Code Negative [facility] UA Auto SS WBC LM.HPF (Urine sed) [#/Area] 6-15 /HPF Invalid Interpretation Code 0-5/HPF [facility] UA Auto SS CHEMISTRYOrdered By: SYSTEM SYSTEM on 04-15-2022 Anion gap [Moles/Vol] 11 mmol/L Normal 6 - 16 mEq/L [facility] Remisol Chloride [Moles/Vol] 104 mmol/L Normal 101 - 1 11 mmol/L [facility] CO2 [Moles/Vol] 29 mmol/L Normal 21 - 31 mmol/L [facility] Creatinine [Mass/Vol] 0.5 mg/dL Normal 0.5 - 1.3 mg/dL [facility] Remisol GFR/1.73 sq M.predicted among blacks MDRD (S/P/Bld) [Vol rate/Area] mL/min/1.73 m2 Normal >=59mL/min /1.73 m2 [facility] Chem S GFR/1.73 sq M.predicted among non-blacks MDRD (S/P/Bld) [Vol rate/Area] mL/min/1.73 m2 Normal >=59mL/min /1.73 m2 [facility] Chem S Glucose [Mass/Vol] 46 mg/dL Low 55 - 199 mg/dL [facility] Potassium [Moles/Vol] 3.6 mmol/L Normal 3.5 - 5.3 mmol/L [facility] Sodium [Moles/Vol] 140 mmol/L Normal 135 - 145 mmol/L [facility] Remisol Urea nitrogen [Mass/Vol] 22 mg/dL High 5 - 21 mg/dL [facility] Remisol HEMATOLOGYOrdered By: Bertha jones on 04-15-2022 Erythrocyte distribution width (RBC) [Ratio] 12.8 % Normal 10.9 - 14.2 % [facility] HemeAutoSS Hematocrit (Bld) [Volume fraction] 41.2 % Normal 34.0 - 46.0 % [facility] HemeAutoSS Hemoglobin (Bld) [Mass/Vol] 14.1 g/dL Normal 12.0 - 16.0 gm/dL [facility] HemeAutoSS MCH (RBC) [Entitic mass] 30.4 pg Normal 27.0 - 34.0 pg [facility] HemeAutoSS MCHC (RBC) [Mass/Vol] 34.3 g/dL Normal 31.4 - 36.0 gm/dL [facility] HemeAutoSS MCV (RBC) [Entitic vol] 88.5 fL Normal 80.0 - 100.0 fL [facility] HemeAutoSS Platelet mean volume (Bld) [Entitic vol] 6.9 fL Normal 6.4 - 10.8 fL [facility] HemeAutoSS Platelets (Bld) [#/Vol] 223.0 E9/L Normal 150.0 - 500.0 E9/L [facility] HemeAutoSS RBC (Bld) [#/Vol] 4.7 E12/L Normal 4.3 - 5.9 E12/L [facility] HemeAutoSS WBC corrected for nucl RBC Auto (Bld) [#/Vol] 7.0 E9/L Normal 4.0 - 11.0 E9/L [facility] HemeAutoSS Glucose Glucometer (dC) [M ass/Vol]Ordered By: Vivek Ceballos on 04-13-2022 Glucose [Mass/Vol] 178 mg/dL [facility] Comment on above: Random Glucose Refer ence Range is dependent on time and content of last meal. Glucose of more than 200 mg/dL in a nonstressed, ambulatory subject supports the diagnosis of Diabetes Mellitus. Laboratory - Chemistry and C hemistry - challengeOrdered By: Vivek Ceballos on 04-13-2022 AST [Catalytic activity/Vol] 14 U/L [facility] No Panel InformationOrdered By: Vivek Ceballos on 04-13-2022 Bedside Glucose Comment Glu2: cleaned meter [facility] Serum or plasma alanine slaughter otransferase measurement without P-5'-P (enzymatic activiOrdered By: Vivek Ceballos on 04-13-2022 ALT No additional P-5'-P [Catalytic activity/Vol] 12 U/L 10-60 [facility] Serum or plasma alkaline shelby sphatase measurement (enzymatic activity/volume)Ordered By: Vivek Ceballos on 04-13-2022 ALP [Catalytic activity/Vol] 47 U/L 32-92 [facility] Serum or plasma potassium me asurement (moles/volume)Ordered By: Vivek Ceballos on 04-13-2022 Potassium [Moles/Vol] 3.5 mmol/L 3.5-5.1 [facility] Serum or plasma total biliru bin measurement (mass/volume)Ordered By: Vivek Ceballos on 04-13-2022 Bilirubin [Mass/Vol] 0.5 mg/dL 0.3-1.2 [facility] Automated erythrocytes count in urine sediment (number/area)Ordered By: Vviek Ceballos on 04-12-2022 RBC Auto (Urine sed) [#/Area] Innumerable [HPF] 0-4 [facility] Automated leukocytes count i n urine sediment (number/area)Ordered By: Vivek Ceballos on 04-12-2022 WBC Auto (Urine sed) [#/Area] 3-4 [HPF] 0-4 [facility] Basophils Auto (Bld) [#/Vol] Ordered By: Vivek Ceballos on 04-12-2022 Basophils (Bld) [#/Vol] 0.1 10*3/uL 0.0-0.2 [facility] Basophils/100 WBC Auto (Bld) Ordered By: Vivek Ceballos on 04-12-2022 Basophils/100 WBC (Bld) 1.0 % . [facility] Bilirubin Test strip Ql (U)O rdered By: Vivek Ceballos on 04-12-2022 Bilirubin Ql (U) Negative Negative [facility] Body fluid albumin measureme nt (mass/volume)Ordered By: Vivek Ceballos on 04-12-2022 Albumin (Body fld) [Mass/Vol] 4.1 g/dL 3.2-5.5 [facility] Color Auto (U)Ordered By: Juan Ceballos on 04-12-2022 Color (U) Yellow Yellow [facility] Creatinine and Glomerular fi ltration rate.predicted panel (S/P/Bld)Ordered By: Vivek Ceballos on 04-12-2022 Creatinine [Mass/Vol] 0.63 mg/dL 0.44-1.03 [facility] Eosinophils Auto (Bld) [#/Vo l]Ordered By: Vivek Ceballos on 04-12-2022 Eosinophils (Bld) [#/Vol] 0.1 10*3/uL 0.0-0.45 [facility] Eosinophils/100 WBC Auto (Bl d)Ordered By: Vivek Ceballos on 04-12-2022 Eosinophils/100 WBC (Bld) 1.4 % . [facility] Erythrocyte distribution wid th Auto (RBC) [Ratio]Ordered By: Vivek Ceballos on 04-12-2022 Erythrocyte distribution width (RBC) [Ratio] 13.2 % 11.9-15.3 [facility] Estimated glomerular filtrat ion rate (GFR) non- AmericanOrdered By: Vivek Ceballos on 04-12-2022 GFR/1.73 sq M.predicted among non-blacks MDRD (S/P/Bld) [Vol rate/Area] > 60 mL/Min [facility] Globulin Calc (S) [Mass/Vol] Ordered By: Vivek Ceballos on 04-12-2022 Globulin (S) [Mass/Vol] 3.1 g/dL [facility] HCG ( test) IA.rapi d Ql (U)Ordered By: Vivek Ceballos on 04-12-2022 HCG ( test) Ql (U) Negative [facility] Hematocrit Auto (Bld) [Volum e fraction]Ordered By: Vivek Ceballos on 04-12-2022 Hematocrit (Bld) [Volume fraction] 40.8 % 34.0-46.4 [facility] Hemoglobin [Mass/volume] in BloodOrdered By: Vivek Ceballos on 04-12-2022 Hemoglobin (Bld) [Mass/Vol] 14.2 g/dL 11.8-15.4 [facility] Ketones Auto test strip (U) [Mass/Vol]Ordered By: Vivek Ceballos on 04-12-2022 Ketones (U) [Mass/Vol] Negative Negative [facility] Laboratory - Hematology and Cell countsOrdered By: Vivek Ceballos on 04-12-2022 Nucleated RBC/100 WBC (Bld) [Ratio] 0.1 % 0-0.5 [facility] Laboratory - UrinalysisOrder ed By: Vivek Ceballos on 04-12-2022 Hyaline casts LM Ql (Urine sed) 0-8 [LPF] 0-8 [facility] Leukocytes [#/volume] in Blo od by Automated countOrdered By: Vivek Ceballos on 04-12-2022 WBC (Bld) [#/Vol] 10.3 10*3/uL 4.5-11.0 [facility] Lymphocytes Auto (Bld) [#/Vo l]Ordered By: Vivek Ceballos on 04-12-2022 Lymphocytes (Bld) [#/Vol] 2.5 10*3/uL 1.00-4.8 [facility] Lymphocytes/100 WBC Auto (Bl d)Ordered By: Vivek Ceballos on 04-12-2022 Lymphocytes/100 WBC (Bld) 24.7 % . [facility] MCH Auto (RBC) [Entitic mass ]Ordered By: Vivek Ceballos on 04-12-2022 MCH (RBC) [Entitic mass] 30.9 pg 24.7-34.3 [facility] MCHC Auto (RBC) [Mass/Vol]Or dered By: Vivek Ceballos on 04-12-2022 MCHC (RBC) [Mass/Vol] 34.7 g/dL 32.0-35.0 [facility] MCV Auto (RBC) [Entitic vol] Ordered By: Vivek Ceballos on 04-12-2022 MCV (RBC) [Entitic vol] 88.9 fL 80-100 [facility] Monocytes Auto (Bld) [#/Vol] Ordered By: Vivek Ceballos on 04-12-2022 Monocytes (Bld) [#/Vol] 0.7 10*3/uL 0.0-0.8 [facility] Monocytes/100 WBC Auto (Bld) Ordered By: Vivek Ceballos on 04-12-2022 Monocytes/100 WBC (Bld) 6.3 % . [facility] Neutrophils Auto (Bld) [#/Vo l]Ordered By: Vivek Ceballos on 04-12-2022 Neutrophils (Bld) [#/Vol] 6.9 10*3/uL 1.8-7.7 [facility] Neutrophils/100 WBC Auto (Bl d)Ordered By: Vivek Ceballos on 04-12-2022 Neutrophils/100 WBC (Bld) 66.6 % . [facility] Nitrite Test strip Ql (U)Ord ered By: Vivek Ceballos on 04-12-2022 Nitrite Ql (U) Negative Negative [facility] No Panel InformationOrdered By: Vivek Ceballos on 04-12-2022 Estimated GFR () > 60 mL/Min [facility] Comment on above: GFR estimated refere nce range: According to KDOQI guidelines, <60 ml/min/1.73m2 is sufficient to diagnose a patient with chronic kidney disease. Pharmacy Creatinine Clearance (Chem 144.65 [facility] Platelet mean volume Auto (B ld) [Entitic vol]Ordered By: Vivek Ceballos on 04-12-2022 Platelet mean volume (Bld) [Entitic vol] 7.0 fL 6.3-10.7 [facility] Platelets Auto (Bld) [#/Vol] Ordered By: Vivek Ceballos on 04-12-2022 Platelets (Bld) [#/Vol] 262 10*3/uL 150-450 [facility] Protein Auto test strip (U) [Mass/Vol]Ordered By: Vivek Ceballos on 04-12-2022 Protein (U) [Mass/Vol] Negative Negative [facility] Protein [Mass/volume] in Ser um or PlasmaOrdered By: Vivek Ceballos on 04-12-2022 Protein [Mass/Vol] 7.2 g/dL 6.1-7.9 [facility] RBC Auto (Bld) [#/Vol]Ordere d By: Vivek Ceballos on 04-12-2022 RBC (Bld) [#/Vol] 4.60 10*6/uL 3.60-5.00 [facility] Serum or plasma albumin/glob ulin mass ratioOrdered By: Vivek Ceballos on 04-12-2022 Albumin/Globulin [Mass ratio] 1.3 {ratio} [facility] Serum or plasma anion gap de terminationOrdered By: Vivek Ceballos on 04-12-2022 Anion gap [Moles/Vol] TNP [facility] Comment on above: Test not performed Serum or plasma calcium jesse urement (mass/volume)Ordered By: Vivek Ceballos on 04-12-2022 Calcium [Mass/Vol] 9.7 mg/dL 8.2-10.2 [facility] Serum or plasma chloride marcia surement (moles/volume)Ordered By: Vivek Ceballos on 04-12-2022 Chloride [Moles/Vol] 101 mmol/L 95-114 [facility] Serum or plasma glucose jesse urement (mass/volume)Ordered By: Vivek Ceballos on 04-12-2022 Glucose [Mass/Vol] 48 mg/dL 70-100 [facility] Comment on above: Results calledat 235 8 on 04/12/22 ADA recommended reference rangeRandom Glucose Reference Range is dependent on time and content of last meal. Glucose of more than 200 mg/dL in a nonstressed, ambulatory subject supports the diagnosis of Diabetes Mellitus. Serum or plasma sodium measu rement (moles/volume)Ordered By: Vivek Ceballos on 04-12-2022 Sodium [Moles/Vol] 137 mmol/L 136-146 [facility] Serum or plasma total carbon dioxide measurement (moles/volume)Ordered By: Vivek Ceballos on 04-12-2022 CO2 [Moles/Vol] 25.1 mmol/L 22.0-30.0 [facility] Serum or plasma urea nitroge n measurement (mass/volume)Ordered By: Vivek Ceballos on 04-12-2022 Urea nitrogen [Mass/Vol] 20 mg/dL 9-23 [facility] Specific gravity Auto test s trip (U) [Rel density]Ordered By: Vivek Ceballos on 04-12-2022 Specific gravity (U) [Rel density] 1.017 1.001-1.03 0 [facility] Squamous epithelial cells de tection in urine sediment by light microscopyOrdered By: Vivek Ceballos on 04-12-2022 Epithelial cells.squamous LM Ql (Urine sed) 3-4 [HPF] 0-2 [facility] Urine bacteria detection by automated methodOrdered By: Vivek Ceballos on 04-12-2022 Bacteria Auto Ql (U) None seen None Seen [facility] Urine clarity by refractomet ry automatedOrdered By: Vivek Ceballos on 04-12-2022 Clarity Refractometry automated (U) Clear Clear [facility] Urine glucose measurement by automated test strip (mass/volume)Ordered By: Vivek Ceballos on 04-12-2022 Glucose Auto test strip (U) [Mass/Vol] Normal mg/dL Normal [facility] Urine hemoglobin detection b y automated test stripOrdered By: Vivek Ceballos on 04-12-2022 Hemoglobin Auto test strip Ql (U) 3+ Negative [facility] Urine leukocyte esterase det ection by automated test stripOrdered By: Vivek Ceballos on 04-12-2022 Leukocyte esterase Auto test strip Ql (U) 2+ Negative [facility] Urobilinogen Auto test strip (U) [Mass/Vol]Ordered By: Vivek Ceballos on 04-12-2022 Urobilinogen (U) [Mass/Vol] Normal mg/dL Normal [facility] pH Auto test strip (U)Ordere d By: Vivek Ceballos on 04-12-2022 pH (U) 6.5 [pH] 5.0-9.0 [facility] Urine culture routineOrdered By: Gurwinder Philippe on 04-03-2022 Bacteria identified Cx Nom (U) 2 Days [facility] COVID Quick Testingon 2021 Result Negative [employer] Other Quick Strepon 04-01-2022 S. pyogenes Org specific cx Ql (Throat) Negative [facility] Other Quick Strep [employer] [facility] [employer] Other Automated erythrocytes count in urine sediment (number/area)Ordered By: Gurwinder Philippe on 03-31-2022 RBC Auto (Urine sed) [#/Area] Innumerable [HPF] 0-4 [facility] Automated leukocytes count i n urine sediment (number/area)Ordered By: Gurwinder Philippe on 03-31-2022 WBC Auto (Urine sed) [#/Area] 50-100 [HPF] 0-4 [facility] Automated urine hyaline cast s count (number/volume)Ordered By: Gurwinder Philippe on 03-31-2022 Hyaline casts Auto (U) [#/Vol] 5-9 [LPF] 0-1 [facility] Basophils Auto (Bld) [#/Vol] Ordered By: Gurwinder Philippe on 03-31-2022 Basophils (Bld) [#/Vol] 0.1 10*3/uL 0.0-0.2 [facility] Basophils/100 WBC Auto (Bld) Ordered By: Gurwinder Philippe on 03-31-2022 Basophils/100 WBC (Bld) 1.1 % . [facility] Bilirubin Test strip Ql (U)O rdered By: Gurwinder Philippe on 03-31-2022 Bilirubin Ql (U) Negative Negative [facility] Blood hemoglobin measurement (mass/volume)Ordered By: Gurwinder Philippe on 03-31-2022 Hemoglobin (Bld) [Mass/Vol] 12.9 g/dL 11.8-15.4 [facility] Blood leukocytes automated c ount (number/volume)Ordered By: Gurwinder Philippe on 03-31-2022 WBC (Bld) [#/Vol] 6.0 10*3/uL 4.5-11.0 [facility] Body fluid albumin measureme nt (mass/volume)Ordered By: Gurwinder Philippe on 03-31-2022 Albumin (Body fld) [Mass/Vol] 3.5 g/dL 3.2-5.5 [facility] Casts typing in urine sedime nt by light microscopyOrdered By: Gurwinder Philippe on 03-31-2022 Casts LM Nom (Urine sed) None seen [LPF] None Seen [facility] Color Auto (U)Ordered By: Suzan Philippe on 03-31-2022 Color (U) [place] Yellow [facility] Creatinine and Glomerular fi ltration rate.predicted panel (S/P/Bld)Ordered By: Gurwinder Philippe on 03-31-2022 Creatinine [Mass/Vol] 0.82 mg/dL 0.44-1.03 [facility] Eosinophils Auto (Bld) [#/Vo l]Ordered By: Gurwinder Philippe on 03-31-2022 Eosinophils (Bld) [#/Vol] 0.2 10*3/uL 0.0-0.45 [facility] Eosinophils/100 WBC Auto (Bl d)Ordered By: Gurwinder Philippe on 03-31-2022 Eosinophils/100 WBC (Bld) 3.9 % . [facility] Erythrocyte distribution wid th Auto (RBC) [Ratio]Ordered By: Gurwinder Philippe on 03-31-2022 Erythrocyte distribution width (RBC) [Ratio] 12.4 % 11.9-15.3 [facility] Estimated glomerular filtrat ion rate (GFR) non- AmericanOrdered By: Gurwinder Philippe on 03-31-2022 GFR/1.73 sq M.predicted among non-blacks MDRD (S/P/Bld) [Vol rate/Area] > 60 mL/Min [facility] Globulin Calc (S) [Mass/Vol] Ordered By: Gurwinder Philippe on 03-31-2022 Globulin (S) [Mass/Vol] 2.9 g/dL [facility] Hematocrit Auto (Bld) [Volum e fraction]Ordered By: Gurwinder Philippe on 03-31-2022 Hematocrit (Bld) [Volume fraction] 37.1 % 34.0-46.4 [facility] Ketones Auto test strip (U) [Mass/Vol]Ordered By: Gurwinder Philippe on 03-31-2022 Ketones (U) [Mass/Vol] Trace Negative [facility] Laboratory - Hematology and Cell countsOrdered By: Gurwinder Philippe on 03-31-2022 Nucleated RBC/100 WBC (Bld) [Ratio] 0.0 % 0-0.5 [facility] Lymphocytes Auto (Bld) [#/Vo l]Ordered By: Gurwinder Philippe on 03-31-2022 Lymphocytes (Bld) [#/Vol] 1.9 10*3/uL 1.00-4.8 [facility] Lymphocytes/100 WBC Auto (Bl d)Ordered By: Gurwinder Philippe on 03-31-2022 Lymphocytes/100 WBC (Bld) 31.2 % . [facility] MCH Auto (RBC) [Entitic mass ]Ordered By: Gurwinder Philippe on 03-31-2022 MCH (RBC) [Entitic mass] 30.9 pg 24.7-34.3 [facility] MCHC Auto (RBC) [Mass/Vol]Or dered By: Gurwinder Philippe on 03-31-2022 MCHC (RBC) [Mass/Vol] 34.7 g/dL 32.0-35.0 [facility] MCV Auto (RBC) [Entitic vol] Ordered By: Gurwinder Philippe on 03-31-2022 MCV (RBC) [Entitic vol] 88.9 fL 80-100 [facility] Monocytes Auto (Bld) [#/Vol] Ordered By: Gurwinder Philippe on 03-31-2022 Monocytes (Bld) [#/Vol] 0.5 10*3/uL 0.0-0.8 [facility] Monocytes/100 WBC Auto (Bld) Ordered By: Gurwinder Philippe on 03-31-2022 Monocytes/100 WBC (Bld) 7.8 % . [facility] Mucus LM Ql (Urine sed)Order ed By: Gurwinder Philippe on 03-31-2022 Mucus Ql (Urine sed) 3+ [LPF] [facility] Neutrophils Auto (Bld) [#/Vo l]Ordered By: Gurwinder Philippe on 03-31-2022 Neutrophils (Bld) [#/Vol] 3.4 10*3/uL 1.8-7.7 [facility] Neutrophils/100 WBC Auto (Bl d)Ordered By: Gurwinder Philippe on 03-31-2022 Neutrophils/100 WBC (Bld) 56.0 % . [facility] Nitrite Test strip Ql (U)Ord ered By: Gurwinder Philippe on 03-31-2022 Nitrite Ql (U) Negative Negative [facility] No Panel InformationOrdered By: Gurwinder Philippe on 03-31-2022 Estimated GFR () > 60 mL/Min [facility] Comment on above: GFR estimated refere nce range: According to KDOQI guidelines, <60 ml/min/1.73m2 is sufficient to diagnose a patient with chronic kidney disease. Pharmacy Creatinine Clearance (Chem 111.35 [facility] Platelet mean volume Auto (B ld) [Entitic vol]Ordered By: Gurwinder Philippe on 03-31-2022 Platelet mean volume (Bld) [Entitic vol] 7.0 fL 6.3-10.7 [facility] Platelets Auto (Bld) [#/Vol] Ordered By: Gurwinder Philippe on 03-31-2022 Platelets (Bld) [#/Vol] 233 10*3/uL 150-450 [facility] Protein Auto test strip (U) [Mass/Vol]Ordered By: Gurwinder Philippe on 03-31-2022 Protein (U) [Mass/Vol] 30 mg/dL Negative [facility] Protein [Mass/volume] in Ser um or PlasmaOrdered By: Gurwinder Philippe on 03-31-2022 Protein [Mass/Vol] 6.4 g/dL 6.1-7.9 [facility] RBC Auto (Bld) [#/Vol]Ordere d By: Gurwinder Philippe on 03-31-2022 RBC (Bld) [#/Vol] 4.17 10*6/uL 3.60-5.00 [facility] Serum or plasma alanine slaughter otransferase measurement without P-5'-P (enzymatic activiOrdered By: Gurwinder Philippe on 03-31-2022 ALT No additional P-5'-P [Catalytic activity/Vol] 12 U/L [facility] Serum or plasma albumin/glob ulin mass ratioOrdered By: Gurwinder Philippe on 03-31-2022 Albumin/Globulin [Mass ratio] 1.2 {ratio} [facility] Serum or plasma alkaline shelby sphatase measurement (enzymatic activity/volume)Ordered By: Gurwinder Philippe on 03-31-2022 ALP [Catalytic activity/Vol] 46 U/L 32-92 [facility] Serum or plasma anion gap de terminationOrdered By: Gurwinder Philippe on 03-31-2022 Anion gap [Moles/Vol] 14.4 mmol/L 6.0-15.[address] [facility] Serum or plasma aspartate am inotransferase measurement (enzymatic activity/volume)Ordered By: Gurwinder Philippe on 03-31-2022 AST [Catalytic activity/Vol] 18 U/L [facility] Serum or plasma calcium jesse urement (mass/volume)Ordered By: Gurwinder Philippe on 03-31-2022 Calcium [Mass/Vol] 9.2 mg/dL 8.2-10.2 [facility] Serum or plasma chloride marcia surement (moles/volume)Ordered By: Gurwinder Philippe on 03-31-2022 Chloride [Moles/Vol] 99 mmol/L 95-114 [facility] Serum or plasma glucose jesse urement (mass/volume)Ordered By: Gurwinder Philippe on 03-31-2022 Glucose [Mass/Vol] 305 mg/dL 70-100 [facility] Comment on above: ADA recommended refe rence rangeRandom Glucose Reference Range is dependent on time and content of last meal. Glucose of more than 200 mg/dL in a nonstressed, ambulatory subject supports the diagnosis of Diabetes Mellitus. Serum or plasma potassium me asurement (moles/volume)Ordered By: Gurwinder Philippe on 03-31-2022 Potassium [Moles/Vol] 4.1 mmol/L 3.5-5.1 [facility] Serum or plasma sodium measu rement (moles/volume)Ordered By: Gurwinder Philippe on 03-31-2022 Sodium [Moles/Vol] 135 mmol/L 136-146 [facility] Serum or plasma total biliru bin measurement (mass/volume)Ordered By: Gurwinder Phliippe on 03-31-2022 Bilirubin [Mass/Vol] 0.3 mg/dL 0.3-1.2 [place] [facility] Serum or plasma total carbon dioxide measurement (moles/volume)Ordered By: Gurwinder Philippe on 03-31-2022 CO2 [Moles/Vol] 25.7 mmol/L 22.0-30.0 [facility] Serum or plasma urea nitroge n measurement (mass/volume)Ordered By: Gurwinder Philippe on 03-31-2022 Urea nitrogen [Mass/Vol] 14 mg/dL 9-23 [facility] Specific gravity Auto test s trip (U) [Rel density]Ordered By: Gurwinder Philippe on 03-31-2022 Specific gravity (U) [Rel density] 1.025 1.001-1.03 0 [facility] Squamous epithelial cells de tection in urine sediment by light microscopyOrdered By: Gurwinder Philippe on 03-31-2022 Epithelial cells.squamous LM Ql (Urine sed) 10-19 [HPF] 0-2 [facility] Urine bacteria detection by automated methodOrdered By: Gurwinder Philippe on 03-31-2022 Bacteria Auto Ql (U) None seen None Seen [facility] Urine clarity by refractomet ry automatedOrdered By: Gurwinder Philippe on 03-31-2022 Clarity Refractometry automated (U) Cloudy Clear [facility] Urine glucose measurement by automated test strip (mass/volume)Ordered By: Gurwinder Philippe on 03-31-2022 Glucose Auto test strip (U) [Mass/Vol] 250 mg/dL Normal [facility] Urine hemoglobin detection b y automated test stripOrdered By: Gurwinder Philippe on 03-31-2022 Hemoglobin Auto test strip Ql (U) 3+ Negative [facility] Urine leukocyte esterase det ection by automated test stripOrdered By: Gurwinder Philippe on 03-31-2022 Leukocyte esterase Auto test strip Ql (U) 3+ Negative [facility] Urine sediment renal epithel ial cell count by microscopy (number/high power field)Ordered By: Gurwinder Philippe on 03-31-2022 Epithelial cells.renal LM.HPF (Urine sed) [#/Area] None seen [HPF] 0-1 [facility] Urobilinogen Auto test strip (U) [Mass/Vol]Ordered By: Gurwinder Philippe on 03-31-2022 Urobilinogen (U) [Mass/Vol] Normal mg/dL Normal [facility] pH Auto test strip (U)Ordere d By: Gurwinder Philippe on 03-31-2022 pH (U) 6.0 [pH] 5.0-9.0 [facility] CHEMISTRYOrdered By: SYSTEM SYSTEM on 03-08-2022 Albumin [Mass/Vol] 3.9 g/dL Normal 3.3 - 5.0 gm/dL [facility] Albumin/Globulin [Mass ratio] 1.1 {ratio} Normal 1.1 - 2.2 [facility] ALP [Catalytic activity/Vol] 51 [iU]/d Normal [...] rate/Area] mL/min/1.73 m2 Normal >=59mL/min /1.73 m2 [facility] Chem S GFR/1.73 sq M.predicted among non-blacks [...] [facility] HEMATOLOGYOrdered By: SYSTEM SYSTEM on 03-08-2022 Basophils/100 WBC (Bld) 0.8 [...] PM) Normal Negative [facility] UA Auto SS [place].plasma/[place] .RBC (Bld) [Mass ratio] 21-30 /HPF Invalid [...] [facility] Auto SS Urobilinogen Qn (U) 0.4513279 {Diaz'U}/dL Normal 0.0 - 1.0 EU/dL [facility] UA Auto SS WBC Auto Ql (U) 2+ *ABN* (03/08/22 8:07 PM) Invalid Interpretation Code Negative [facility] UA Auto SS WBC LM.HPF (Urine sed) [#/Area] 26-30 /HPF Invalid Interpretation Code 0-5/HPF [facility] UA Auto SS Urine culture routineOrdered By: Gurwinder Philippe on 02-28-2022 Bacteria identified Cx Nom (U) 2 Days [facility] Basophils Auto (Bld) [#/Vol] Ordered By: Joseluis Vega on 02-26-2022 Basophils (Bld) [#/Vol] 0.1 10*3/uL 0.0-0.2 [facility] Basophils/100 WBC Auto (Bld) Ordered By: Joseluis Vega on 02-26-2022 Basophils/100 WBC (Bld) 0.8 % . [facility] Blood hemoglobin measurement (mass/volume)Ordered By: Joseluis Vega on 02-26-2022 Hemoglobin (Bld) [Mass/Vol] 14.6 g/dL 11.8-15.4 [facility] Blood leukocytes automated c ount (number/volume)Ordered By: Joseluis Vega on 02-26-2022 WBC (Bld) [#/Vol] 7.9 10*3/uL 4.5-11.0 [facility] Body fluid albumin measureme nt (mass/volume)Ordered By: Joseluis Vega on 02-26-2022 Albumin (Body fld) [Mass/Vol] 4.3 g/dL 3.2-5.5 [facility] Creatinine and Glomerular fi ltration rate.predicted panel (S/P/Bld)Ordered By: Joseluis Vega on 02-26-2022 Creatinine [Mass/Vol] 0.59 mg/dL 0.44-1.03 [facility] Eosinophils Auto (Bld) [#/Vo l]Ordered By: Joseluis Vega on 02-26-2022 Eosinophils (Bld) [#/Vol] 0.2 10*3/uL 0.0-0.45 [facility] Eosinophils/100 WBC Auto (Bl d)Ordered By: Joseluis Vega on 02-26-2022 Eosinophils/100 WBC (Bld) 2.0 % . [facility] Erythrocyte distribution wid th Auto (RBC) [Ratio]Ordered By: Joseluis Vega on 02-26-2022 Erythrocyte distribution width (RBC) [Ratio] 13.6 % 11.9-15.3 [facility] Estimated glomerular filtrat ion rate (GFR) non- AmericanOrdered By: oJseluis Vega on 02-26-2022 GFR/1.73 sq M.predicted among non-blacks MDRD (S/P/Bld) [Vol rate/Area] > 60 mL/Min [facility] Globulin Calc (S) [Mass/Vol] Ordered By: Joseluis Vega on 02-26-2022 Globulin (S) [Mass/Vol] 3.2 g/dL [facility] Hematocrit Auto (Bld) [Volum e fraction]Ordered By: Joseluis Vega on 02-26-2022 Hematocrit (Bld) [Volume fraction] 42.3 % 34.0-46.4 [facility] Laboratory - Hematology and Cell countsOrdered By: Joseluis Vega on 02-26-2022 Nucleated RBC/100 WBC (Bld) [Ratio] 0.1 % 0-0.5 [facility] Lymphocytes Auto (Bld) [#/Vo l]Ordered By: Joseluis Vega on 02-26-2022 Lymphocytes (Bld) [#/Vol] 2.2 10*3/uL 1.00-4.8 [facility] Lymphocytes/100 WBC Auto (Bl d)Ordered By: Joseluis Vega on 02-26-2022 Lymphocytes/100 WBC (Bld) 28.4 % . [facility] MCH Auto (RBC) [Entitic mass ]Ordered By: Joseluis Vega on 02-26-2022 MCH (RBC) [Entitic mass] 31.3 pg 24.7-34.3 [facility] MCHC Auto (RBC) [Mass/Vol]Or dered By: Joseluis Vega on 02-26-2022 MCHC (RBC) [Mass/Vol] 34.5 g/dL 32.0-35.0 [facility] MCV Auto (RBC) [Entitic vol] Ordered By: Joseluis Vega on 02-26-2022 MCV (RBC) [Entitic vol] 90.5 fL 80-100 [facility] Monocytes Auto (Bld) [#/Vol] Ordered By: Joseluis Vega on 02-26-2022 Monocytes (Bld) [#/Vol] 0.6 10*3/uL 0.0-0.8 [facility] Monocytes/100 WBC Auto (Bld) Ordered By: Joseluis Vega on 02-26-2022 Monocytes/100 WBC (Bld) 7.5 % . [facility] Neutrophils Auto (Bld) [#/Vo l]Ordered By: Joseluis Vega on 02-26-2022 Neutrophils (Bld) [#/Vol] 4.9 10*3/uL 1.8-7.7 [facility] Neutrophils/100 WBC Auto (Bl d)Ordered By: Joseluis Vega on 02-26-2022 Neutrophils/100 WBC (Bld) 61.3 % . [facility] No Panel InformationOrdered By: Joseluis Vega on 02-26-2022 Estimated GFR () > 60 mL/Min [facility] Comment on above: GFR estimated refere nce range: According to KDOQI guidelines, <60 ml/min/1.73m2 is sufficient to diagnose a patient with chronic kidney disease. Pharmacy Creatinine Clearance (Chem 146.30 [facility] Platelet mean volume Auto (B ld) [Entitic vol]Ordered By: Joseluis Vega on 02-26-2022 Platelet mean volume (Bld) [Entitic vol] 6.6 fL 6.3-10.7 [facility] Platelets Auto (Bld) [#/Vol] Ordered By: Joseluis Vega on 02-26-2022 Platelets (Bld) [#/Vol] 290 10*3/uL 150-450 [facility] Protein [Mass/volume] in Ser um or PlasmaOrdered By: Joseluis Vega on 02-26-2022 Protein [Mass/Vol] 7.5 g/dL 6.1-7.9 [facility] RBC Auto (Bld) [#/Vol]Ordere d By: Joseluis Vega on 02-26-2022 RBC (Bld) [#/Vol] 4.67 10*6/uL 3.60-5.00 [facility] Serum or plasma alanine slaughter otransferase measurement without P-5'-P (enzymatic activiOrdered By: Joseluis Vega on 02-26-2022 ALT No additional P-5'-P [Catalytic activity/Vol] 17 U/L 10-60 [facility] Serum or plasma albumin/glob ulin mass ratioOrdered By: Joseluis Vega on 02-26-2022 Albumin/Globulin [Mass ratio] 1.3 {ratio} [facility] Serum or plasma alkaline shelby sphatase measurement (enzymatic activity/volume)Ordered By: Joseluis Vega on 02-26-2022 ALP [Catalytic activity/Vol] 55 U/L 32-92 [facility] Serum or plasma anion gap de terminationOrdered By: Joseluis Vega on 02-26-2022 Anion gap [Moles/Vol] 14.0 mmol/L 6.0-15.[address] [facility] Serum or plasma aspartate am inotransferase measurement (enzymatic activity/volume)Ordered By: Joseluis Vega on 02-26-2022 AST [Catalytic activity/Vol] 17 U/L 10-42 [facility] Serum or plasma calcium jesse urement (mass/volume)Ordered By: Joseluis Vega on 02-26-2022 Calcium [Mass/Vol] 9.7 mg/dL 8.2-10.2 [facility] Serum or plasma chloride marcia surement (moles/volume)Ordered By: Joseluis Vega on 02-26-2022 Chloride [Moles/Vol] 100 mmol/L 95-114 [facility] Serum or plasma glucose jesse urement (mass/volume)Ordered By: Joseluis Vega on 02-26-2022 Glucose [Mass/Vol] 143 mg/dL 70-100 [facility] Comment on above: ADA recommended refe [...] on 02-26-2022 Potassium [Moles/Vol] 3.7 mmol/L 3.5-5.1 [facility] Serum or plasma sodium measu rement (moles/volume)Ordered By: Joseluis Vega on 02-26-2022 Sodium [Moles/Vol] 138 mmol/L 136-146 [facility] Serum or plasma total biliru bin measurement (mass/volume)Ordered By: Joseluis Vega on 02-26-2022 Bilirubin [Mass/Vol] 0.8 mg/dL 0.3-1.2 [facility] Serum or plasma total carbon dioxide measurement (moles/volume)Ordered By: Joseluis Vega on 02-26-2022 CO2 [Moles/Vol] 27.7 mmol/L 22.0-30.0 [facility] Serum or plasma urea nitroge n measurement (mass/volume)Ordered By: Joseluis Vega on 02-26-2022 Urea nitrogen [Mass/Vol] 13 mg/dL 9 [facility] Automated erythrocytes count in urine sediment (number/area)Ordered By: Gurwinder Philippe on 02-25-2022 RBC Auto (Urine sed) [#/Area] Innumerable [HPF] 0-4 [facility] Automated leukocytes count i n urine sediment (number/area)Ordered By: Gurwinder Philippe on 02-25-2022 WBC Auto (Urine sed) [#/Area] 20-49 [HPF] 0-4 [facility] Bilirubin Test strip Ql (U)O rdered By: Gurwinder Philippe on 02-25-2022 Bilirubin Ql (U) Negative Negative [facility] Color Auto (U)Ordered By: Suzan Philippe on 02-25-2022 Color (U) Red Yellow [facility] HCG ( test) IA.rapi d Ql (U)Ordered By: JACINTA PHILLIPS on 02-25-2022 HCG ( test) Ql (U) Negative [facility] Ketones Auto test strip (U) [Mass/Vol]Ordered By: Gurwinder Philippe on 02-25-2022 Ketones (U) [Mass/Vol] Negative Negative [facility] Laboratory - UrinalysisOrder ed By: Gurwinder Philippe on 02-25-2022 Hyaline casts LM Ql (Urine sed) 0-8 [LPF] 0-8 [facility] Nitrite Test strip Ql (U)Ord ered By: Gurwinder Philippe on 02-25-2022 Nitrite Ql (U) Negative Negative [facility] Protein Auto test strip (U) [Mass/Vol]Ordered By: Gurwinder Philippe on 02-25-2022 Protein (U) [Mass/Vol] Negative Negative [facility] Specific gravity Auto test s trip (U) [Rel density]Ordered By: Gurwinder Philippe on 02-25-2022 Specific gravity (U) [Rel density] 1.009 1.001-1.03 0 [facility] Squamous epithelial cells de tection in urine sediment by light microscopyOrdered By: Gurwinder Philippe on 02-25-2022 Epithelial cells.squamous LM Ql (Urine sed) 5-9 [HPF] 0-2 [facility] Urine bacteria detection by automated methodOrdered By: Gurwinder Philippe on 02-25-2022 Bacteria Auto Ql (U) None seen None Seen [facility] Urine clarity by refractomet ry automatedOrdered By: Gurwinder Philippe on 02-25-2022 Clarity Refractometry automated (U) Cloudy Clear [facility] Urine glucose measurement by automated test strip (mass/volume)Ordered By: Gurwinder Philippe on 02-25-2022 Glucose Auto test strip (U) [Mass/Vol] Normal mg/dL Normal [facility] Urine hemoglobin detection b y automated test stripOrdered By: Gurwinder Philippe on 02-25-2022 Hemoglobin Auto test strip Ql (U) 3+ Negative [facility] Urine leukocyte esterase det ection by automated test stripOrdered By: Gurwinder Philippe on 02-25-2022 Leukocyte esterase Auto test strip Ql (U) 4+ Negative [facility] Urobilinogen Auto test strip (U) [Mass/Vol]Ordered By: Gurwinder Philippe on 02-25-2022 Urobilinogen (U) [Mass/Vol] Normal mg/dL Normal [facility] pH Auto test strip (U)Ordere d By: Gurwinder Philippe on 02-25-2022 pH (U) 7.0 [pH] 5.0-9.0 [facility] XR ABDOMEN /KUB/FLAT PLATE/1 VIEWon 02-07-2022 [...] ThuFeb 07, 2022 1:14:45 AM EDT Normal [facility] Comment on above: Order Comment: Injur y/Trauma or Illness?:Illness/Other How long have you had these symptoms (acute/chronic)?:Acute Reason for exam?:right sided flank pain, nausea, vomiting. hx kidney stones History of cancer?:NA Surgeries, chemotherapy, or radiation?:cholecystectomy Type of Exam?:Initial Additional signs and symptoms?:u COVID-19, MOLECULARon 2021 SARS-CoV-2 (COVID-19) RNA JENNIFER+probe Ql (Unsp spec) Not detected Normal Not Detected [facility] Comment on above: Order Comment: This [...] at the following links: For Healthcare Providers: https://www.fda.gov/media/117815/download For Patients: https://www.fda.gov/media/959349/download Performed By: #### L [id number] #### [facility] [address] [place], [place] [address] Triston Le M.D. [id number] CT KIDNEY STONEon 01-18-2022 CT KIDNEY STONE [...] ID: [id number] Dictated by: NAREN [facility]ER[facility] 5:55:50 AM EDT Transcribed by: NAREN NAJERA on [facility], 2022 5:55:50 AM EDT Finalized by: NAREN NAJERA on [facility], 2022 5:55:50 AM EDT Normal [facility] Comment on above: Order Comment: Injur y/Trauma or Illness?:Illness/Other How long have you had these symptoms (acute/chronic)?:Acute Reason for exam?:RT. FLANK PAIN Type of Exam?:Unknown Additional signs and symptoms?:UNKNOWN NOVEL CORONAVIRUSon 01-19-20 22 NARRATIVE This test was perfor med using isothermal JENNIFER and has been approved as Emergency Use Authorization (EUA) for the qualitative detection [id number] nucleic acid. Normal [facility] Comment on above: Performed By: #### C OVID #### [place] [address] SARS-CoV-2 (COVID-19) RNA JENNIFER+probe Ql (Unsp spec) Not detected Normal NOT DETECTED [facility] Comment on above: Result Comment: Nega tive [...] #### C OVID #### Testing performed at [facility] [address] [place] [address] XR CHEST PA/APon 01-18-2022 XR CHEST PA/AP [...] ID: [id number] Dictated by: RAMON RAMIREZ [facility] Jan [facility], 2022 3:57:08 AM EDT Transcribed by: RAMON RAMIREZ on [facility] Jan [facility], 2022 3:57:08 AM EDT Finalized by: RAMON RAMIREZ [facility], 2022 3:57:08 AM EDT Normal [facility] Comment on above: Order Comment: Injur [...] on ThuJan 13, 2022 10:11:51 PM EDT [facility] Comment on above: Order Comment: Injur y/Trauma or Illness?:Illness/Other How long have you had these symptoms (acute/chronic)?:Acute Reason for exam?:right flank pain Type of Exam?:Initial Additional signs and symptoms?:right flank pain COMPREHENSIVE PANELon 2021 Albumin [Mass/Vol] 4.4 g/dL Normal 3.4 - 5.0 [facility] Comment on above: Performed By: #### C MP #### [address] [address] ALP [Catalytic activity/Vol] 71 U/L Normal 33 - 110 [facility] Comment on above: Performed By: #### C MP #### [address] [address] ALT [Catalytic activity/Vol] 10 U/L Normal 7 - 45 [facility] Comment on above: Result Comment: Shaniqua ents treated with Sulfasalazine may generate falsely decreased results for ALT. Performed By: #### C MP #### [address] [address] Anion gap [Moles/Vol] 14 mmol/L Normal 10 - 20 [facility] Comment on above: Performed By: #### C MP #### [address] [address] AST [Catalytic activity/Vol] 10 U/L Normal 9 - 39 [facility] Comment on above: Performed By: #### C MP #### [address] [place] [address] Bilirubin [Mass/Vol] 0.4 mg/dL Normal 0.0 - 1.2 [facility] Comment on above: Performed By: #### C MP #### [address] [address] Calcium [Mass/Vol] 9.6 mg/dL Normal 8.6 - 10.3 [facility] Comment on above: Performed By: #### C MP #### [address] [address] Chloride [Moles/Vol] 99 mmol/L Normal 98 - 107 [facility] Comment on above: Performed By: #### C MP #### [address] [address] Creatinine [Mass/Vol] 0.66 mg/dL Normal 0.50 - 1.05 [facility] Comment on above: Performed By: #### C MP #### [address] [address] eGFR FEMALE >90 Normal >90 [facility] Comment on above: Result Comment: CALC ULATIONS OF ESTIMATED GFR ARE PERFORMED USING THE 2020 CKD-EPI STUDY REFIT EQUATION WITHOUT THE RACE VARIABLE FOR THE IDMS-TRACEABLE CREATININE METHODS. https://jasn.asnjournals.org/content/early/ASN.48920 04889 Performed By: #### C MP #### [address] [address] Glucose [Mass/Vol] 444 mg/dL High 74 - 99 [facility] Comment on above: Performed By: #### C MP #### [address] [address] HCO3 (Bld) [Moles/Vol] 26 mmol/L Normal 21 - 32 [facility] Comment on above: Performed By: #### C MP #### [address] [address] Potassium [Moles/Vol] 4.3 mmol/L Normal 3.5 - 5.3 [facility] Comment on above: Performed By: #### C MP #### [address] [address] Protein [Mass/Vol] 7.6 g/dL Normal 6.4 - 8.2 [facility] Comment on above: Performed By: #### C MP #### [address] [address] Sodium [Moles/Vol] 135 mmol/L Low 136 - 145 [facility] Comment on above: Performed By: #### C MP #### [address] [address] Urea nitrogen [Mass/Vol] 20 mg/dL Normal 6 - 23 [facility] Comment on above: Performed By: #### C MP #### [address] [address] [address] ABDOMEN AND PELVIS WO CON TRASTon 12-18-2021 CT ABDOMEN AND PELVIS WO CONTRAST Patient Name: GISEL CARLTON STUDY: CT ABDOMEN AND PELVIS WO CONTRAST; 12/17/2021 10:11 pm INDICATION: Right flank cabello . COMPARISON: 06/10/2021 ACCESSION NUMBER(S): [id number] ORDERING CLINICIAN: RICKEY CASTLE TECHNIQUE: Axial noncontrast [...] renal calculi, 3 mm on the right church mm on the left. No hydronephrosis or [...] Electronically signed by: KRYSTAL CROWE MD Normal [facility] LACTATEon 12-18-2021 LACTATE Canceled Normal [facility] Comment on above: Order Comment: TEST LACTATE WAS CANCELLED, 12/17/2021 23:51 [facility] Result Comment: Angelique puncture immediately after or during the administration of Metamizole may lead to falsely low results. Testing should be performed immediately prior to Metamizole dosing. Performed By: #### U RINC #### [facility] [address] [place] [address] Lactate [Moles/Vol] 2.1 mmol/L High 0.4 - 2.0 [facility] Comment on above: Result Comment: Angelique puncture immediately after or during the administration of Metamizole may lead to falsely low results. Testing should be performed immediately prior to Metamizole dosing. Performed By: #### L ACT #### [address] [address] LIPASEon 12-18-2021 Lipase [Catalytic activity/Vol] 33 U/L Normal 9 - 82 [facility] Comment on above: Result Comment: Angelique puncture immediately after or during the administration of Metamizole may lead to falsely low results. Testing should be performed immediately prior to Metamizole dosing. Q-pufzug-g-benzoquinone imine (metabolite of Acetaminophen) will generate erroneously low results in samples for patients that have taken toxic doses of acetaminophen. Performed By: #### L IPAS #### [address] [address] CBC AND DIFFERENTIALon 12-17 Basophils (Bld) [#/Vol] 0.10 10*3/uL Normal 0.00 - 0.10 [facility] Comment on above: Performed By: #### U RINC #### [facility] [address] [place] [address] Basophils/100 WBC (Bld) 1.4 % Normal 0.0 - 2.0 [facility] Comment on above: Performed By: #### U RINC #### [facility] [address] [place] [address] Eosinophils (Bld) [#/Vol] 0.40 10*3/uL Normal 0.00 - 0.70 [facility] Comment on above: Performed By: #### U RINC #### [facility] [address] [place] [address] Eosinophils/100 WBC (Bld) 5.8 % Normal 0.0 - 6.0 [facility] Comment on above: Performed By: #### U RINC #### [facility] [address] [place] [address] Erythrocyte distribution width (RBC) [Ratio] 13.2 % Normal 11.5 - 14.5 [facility] Comment on above: Performed By: #### U RINC #### [facility] [address] [place] [address] Hematocrit (Bld) [Volume fraction] 43.0 % Normal 36.0 - 46.0 [facility] Comment on above: Performed By: #### U RINC #### [facility] [address] [place] [address] Hemoglobin (Bld) [Mass/Vol] 14.7 g/dL Normal 12.0 - 16.0 [facility] Comment on above: Performed By: #### U RINC #### [facility] [address] [place] [address] Lymphocytes (Bld) [#/Vol] 1.90 10*3/uL Normal 1.20 - 4.80 [facility] Comment on above: Performed By: #### U RINC #### [facility] [address] [place] [address] Lymphocytes/100 WBC (Bld) 25.1 % Normal 13.0 - 44.0 [facility] Comment on above: Performed By: #### U RINC #### [facility] [address] [place] [address] MCHC (RBC) [Mass/Vol] 34.2 g/dL Normal 32.0 - 36.0 [facility] Comment on above: Performed By: #### U RINC #### [facility] [address] [place] [address] MCV (RBC) [Entitic vol] 88 fL Normal 80 - 100 [facility] Comment on above: Performed By: #### U RINC #### [facility] [address] [place] [address] Monocytes (Bld) [#/Vol] 0.50 10*3/uL Normal 0.10 - 1.00 [facility] Comment on above: Performed By: #### U RINC #### [facility] [address] [place] [address] Monocytes/100 WBC (Bld) 7.2 % Normal 2.0 - 10.0 [facility] Comment on above: Performed By: #### U RINC #### [facility] [address] [place] [address] Neutrophils (Bld) [#/Vol] 4.50 10*3/uL Normal 1.20 - 7.70 [facility] Comment on above: Result Comment: Perc ent differential counts (%) should be interpreted in the context of the absolute cell counts (cells/L). Performed By: #### U RINC #### [facility] [address] [place] [address] Neutrophils/100 WBC (Bld) 60.5 % Normal 40.0 - 80.0 [facility] Comment on above: Performed By: #### U RINC #### [facility] [address] [place] [address] Platelets (Bld) [#/Vol] 271 10*3/uL Normal 150 - 450 [facility] Comment on above: Performed By: #### U RINC #### [facility] [address] [place] [address] RBC 4.89 x10E12/L Normal 4.00 - 5.20 [facility] Comment on above: Performed By: #### U RINC #### [facility] [address] [place] [address] WBC (Bld) [#/Vol] 7.5 10*3/uL Normal 4.4 - 11.3 [facility] Comment on above: Performed By: #### U RINC #### [facility] [address] [place] [address] Provider Note - ED v3on 11-28 Provider [...] chart was dictated with the use of [employer] software within the framework of the current [...] Hives/Urticaria HEALTH HISTOR (more content not included)... [facility] Risk Screen - Adult Emergenc yon 12-17-2021 Risk Screen - Adult Emergency Preferred Language: Preferred Language: Preferred Language for Discussing Health Care (patient/designee)Burkinan Advanced Directives: Advance Directive/DNRno Family Violence Adult: Abuse Screen: Are you or have you been threatened or abused physically, emotionally, or sexually by anyoneno Learning Assessment (Patient): Learning Assessment (Patient): Patient is Able to be Assessed for Learningyes Factors Influencing Readiness to Learnpain Factors that Impact Ability to Learnnone Devices/Methods Used to Communicatecommunication board Learning Preferencesaudio Cultural Considerationsnone Developmental Considerationsnone Hinduism Considerationsnone Learning Assessment (Other Learner): Learning Assessment (Other Learner): Other learner availableno Pressure Injury/TB/Substance: Pressure Injury: Pressure Injury Present on Admissionno Do you have a coughno Smoking Statusnever smoker Alcohol Usedenies Drug Usedenies Admission Risk Screen: Significant IndicatorsComplete CAGE: CAGE: Is this an injured patient at a Trauma Center 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 CELLS 1 /HPF Normal [facility] Comment on above: Performed By: #### U AMIC #### [place] [address] WBC 24 /HPF Abnormal 0-5 [facility] Comment on above: Performed By: #### U AMIC #### [place] [id number] URINALYSIS WITH CULTURE IF I NDICATEDon 12-17-2021 Appearance (U) CLEAR Normal CLEAR [facility] Comment on above: Performed By: #### C BCDF #### [address] [address] Bilirubin Ql (U) Negative Normal NEGATIVE [facility] Comment on above: Performed By: #### C BCDF #### [address] [address] Color (U) Yellow Normal STRAW,YELL OW [facility] Comment on above: Performed By: #### C BCDF #### [place] [address] Glucose Ql (U) >=500(3+) Abnormal NEGATIVE [facility] Comment on above: Performed By: #### C BCDF #### [place] [address] Hemoglobin Ql (U) LARGE(3+) Abnormal NEGATIVE [facility] Comment on above: Performed By: #### C BCDF #### [address] [address] Ketones Ql (U) 5(TRACE) Abnormal NEGATIVE [facility] Comment on above: Performed By: #### C BCDF #### [place] [id number] Leukocyte esterase Test strip Ql (U) SMALL(1+) Abnormal NEGATIVE [facility] Comment on above: Performed By: #### C BCDF #### [address] [address] Nitrite Ql (U) Negative Normal NEGATIVE [facility] Comment on above: Performed By: #### C BCDF #### [address] [address] pH (U) 6.0 [pH] Normal 5.0 - 8.0 [facility] Comment on above: Performed By: #### C BCDF #### [address] [address] Protein Ql (U) Negative Normal NEGATIVE [facility] Comment on above: Performed By: #### C BCDF #### [address] [address] Specific gravity (U) [Rel density] 1.036 High 1.005 - 1.035 [facility] Comment on above: Performed By: #### C BCDF #### [address] [address] Urobilinogen (U) [Mass/Vol] mg/dL Normal 0.0 - 1.9 [facility] Comment on above: Performed By: #### C BCDF #### [address] [address] URINE CULTURE,BACTERIALon URINE CULTURE,BACTERIAL PATIENT: GISEL CARLTON LOCATION: [facility] [employer]#: [id number] : 75 AGE: SEX: F ORDERED BY: RICKEY CASTLE SOURCE: URINE COLLECTED: 12/17/21 20:55 ANTIBIOTICS AT [facility].: RECEIVED : 12/18/21 15:18 SITE: R E S U L T S URINE CULTURE,BACTERIAL FINAL 12/19/21 09:11 MIXED URETHRAL LUCIA. Normal [facility] Comment on above: Performed By: #### U [facility] #### [facility] [address] [place] [address] CBC Auto Differentialon 11-27 Basophils (Bld) [#/Vol] 0.04 10*3/uL [facility] Basophils/100 WBC (Bld) 0.6 % [facility] Eosinophils (Bld) [#/Vol] 0.68 10*3/uL High [facility] Eosinophils/100 WBC (Bld) 10.0 % [facility] Erythrocyte distribution width (RBC) [Entitic vol] 12.3 % 11.6 - 14.8 % [facility] Hematocrit (Bld) [Volume fraction] 36.9 % 36 - 46 % [facility] Hemoglobin (Bld) [Mass/Vol] 12.8 g/dL 12 - 16 g/dL [facility] Immature granulocytes (Bld) [#/Vol] 0.02 10*3/uL [facility] Immature granulocytes/100 WBC (Bld) 0.30 % [facility] Comment on above: The IG parameter is the percentage of metamyelocytes, myelocytes and promyelocytes. An immature granulocyte count (IG) of 1% or more suggests the possibility of infection, an IG count of 3% is very likely related to an infection. Interpretation and review of laboratory results Abnormal [facility] Lymphocytes (Bld) [#/Vol] 1.45 10*3/uL [facility] Lymphocytes/100 WBC (Bld) 21.4 % [facility] MCH (RBC) [Entitic mass] 30.5 pg 26 - 34 pg [facility] MCHC (RBC) [Mass/Vol] 34.7 g/dL 31 - 3 7 g/dL [facility] MCV (RBC) [Entitic vol] 87.9 fL 80 - 100 fL [facility] Monocytes (Bld) [#/Vol] 0.48 10*3/uL [facility] Monocytes/100 WBC (Bld) 7.1 % [facility] Neutrophils (Bld) [#/Vol] 4.11 10*3/uL [facility] Neutrophils/100 WBC (Bld) 60.6 % [facility] Nucleated RBC (Bld) [#/Vol] 0.00 10*3/uL [facility] Nucleated RBC/100 WBC (Bld) [Ratio] 0.0 % [facility] Platelet mean volume (Bld) [Entitic vol] 9.0 fL Low 9.4 - 12.4 fL [facility] Platelets (Bld) [#/Vol] 173 10*3/uL [facility] RBC (Bld) [#/Vol] 4.20 10*6/uL [facility] WBC (Bld) [#/Vol] 6.78 10*3/uL [facility] Comprehensive metabolic 2000 panelon 12-06-2021 Albumin [Mass/Vol] 2.9 g/dL Low 3.2 - 5.2 g/dL [facility] ALP [Catalytic activity/Vol] 55 U/L 40 - 150 U/L [facility] ALT [Catalytic activity/Vol] 17 U/L 14 - 65 U/L [facility] Anion gap [Moles/Vol] 11 mmol/L 10 - 2 0 mmol/L [facility] AST [Catalytic activity/Vol] 12 U/L 0 - 45 U/L [facility] Bilirubin [Mass/Vol] 0.3 mg/dL 0 - 1.3 mg/dL [facility] Calcium [Mass/Vol] 8.7 mg/dL 8.4 - 10. 2 mg/dL [facility] Chloride [Moles/Vol] 106 mmol/L 98 - 10 8 mmol/L [facility] Creatinine [Mass/Vol] 0.50 mg/dL 0.40 - 1.10 mg/dL [facility] GFR/1.73 sq M.predicted CKD-EPI (S/P/Bld) [Vol rate/Area] 117 - PINF [facility] Comment on above: Estimated GFR was ca lculated using the 2020 CKD-EPI creatinine equation. Glucose [Mass/Vol] 232 mg/dL High 65 - 99 mg/dL [facility] HCO3 [Moles/Vol] 28 mmol/L 21 - 32 mmol/L [facility] Interpretation and review of laboratory results Abnormal [facility] Potassium [Moles/Vol] 4.0 mmol/L 3.5 - 5.1 mmol/L [facility] Protein [Mass/Vol] 5.7 g/dL Low 6 - 8 g/dL [facility] Sodium [Moles/Vol] 141 mmol/L 135 - 145 mmol/L [facility] Urea nitrogen [Mass/Vol] 11 mg/dL 8 - 25 mg/dL [facility] Urea nitrogen/Creatinine [Mass ratio] 22.0 mg/mg High 10 - 20 [facility] has implemented the eGFR calculation approach that does not have a coefficient for race that conforms to the NKF-ASN Task Force Recommendations. [facility] Glucose (Bld) [Mass/Vol]on 0 12-06-2021 Glucose [Mass/Vol] 196 mg/dL High 65 - 99 mg/dL [facility] Interpretation and review of laboratory results Abnormal [facility] Magnesiumon 12-06-2021 Magnesium [Mass/Vol] 2.1 mg/dL 1.6 - 2 .4 mg/dL [facility] Magnesium [Mass/Vol]on 12-06 Interpretation and review of laboratory results Normal [facility] CBC Auto Differentialon Basophils (Bld) [#/Vol] 0.04 10*3/uL [facility] Basophils/100 WBC (Bld) 0.8 % [facility] Eosinophils (Bld) [#/Vol] 0.92 10*3/uL High [facility] Eosinophils/100 WBC (Bld) 18.5 % [facility] Erythrocyte distribution width (RBC) [Entitic vol] 12.4 % 11.6 - 14.8 % [facility] Hematocrit (Bld) [Volume fraction] 35.9 % Low 36 - 46 % [facility] Hemoglobin (Bld) [Mass/Vol] 12.3 g/dL 12 - 16 g/dL [facility] Immature granulocytes (Bld) [#/Vol] 0.01 10*3/uL [facility] Immature granulocytes/100 WBC (Bld) 0.20 % [facility] Comment on above: The IG parameter is the percentage of metamyelocytes, myelocytes and promyelocytes. An immature granulocyte count (IG) of 1% or more suggests the possibility of infection, an IG count of 3% is very likely related to an infection. Interpretation and review of laboratory results Abnormal [facility] Lymphocytes (Bld) [#/Vol] 1.94 10*3/uL [facility] Lymphocytes/100 WBC (Bld) 39.1 % [facility] MCH (RBC) [Entitic mass] 30.2 pg 26 - 34 pg [facility] MCHC (RBC) [Mass/Vol] 34.3 g/dL 31 - 3 7 g/dL [facility] MCV (RBC) [Entitic vol] 88.2 fL 80 - 100 fL [facility] Monocytes (Bld) [#/Vol] 0.39 10*3/uL [facility] Monocytes/100 WBC (Bld) 7.9 % [facility] Neutrophils (Bld) [#/Vol] 1.66 10*3/uL Low [facility] Neutrophils/100 WBC (Bld) 33.5 % [facility] Nucleated RBC (Bld) [#/Vol] 0.00 10*3/uL [facility] Nucleated RBC/100 WBC (Bld) [Ratio] 0.0 % [facility] Platelet mean volume (Bld) [Entitic vol] 9.1 fL Low 9.4 - 12.4 fL [facility] Platelets (Bld) [#/Vol] 173 10*3/uL [facility] RBC (Bld) [#/Vol] 4.07 10*6/uL [facility] WBC (Bld) [#/Vol] 4.96 10*3/uL [facility] Comprehensive metabolic 2000 panelon 12-05-2021 Albumin [Mass/Vol] 2.8 g/dL Low 3.2 - 5.2 g/dL [facility] ALP [Catalytic activity/Vol] 53 U/L 40 - 150 U/L [facility] ALT [Catalytic activity/Vol] 14 U/L 14 - 65 U/L [facility] Anion gap [Moles/Vol] 8 mmol/L Low 10 - 2 0 mmol/L [facility] AST [Catalytic activity/Vol] 10 U/L 0 - 45 U/L [facility] Bilirubin [Mass/Vol] 0.3 mg/dL 0 - 1.3 mg/dL [facility] Calcium [Mass/Vol] 8.4 mg/dL 8.4 - 10. 2 mg/dL [facility] Chloride [Moles/Vol] 106 mmol/L 98 - 10 8 mmol/L [facility] Creatinine [Mass/Vol] 0.50 mg/dL 0.40 - 1.10 mg/dL [facility] GFR/1.73 sq M.predicted CKD-EPI (S/P/Bld) [Vol rate/Area] 117 - PINF [facility] Comment on above: Estimated GFR was ca lculated using the 2020 CKD-EPI creatinine equation. Glucose [Mass/Vol] 195 mg/dL High 65 - 99 mg/dL [facility] HCO3 [Moles/Vol] 31 mmol/L 21 - 32 mmol/L [facility] Interpretation and review of laboratory results Abnormal [facility] Potassium [Moles/Vol] 4.0 mmol/L 3.5 - 5.1 mmol/L [facility] Protein [Mass/Vol] 5.5 g/dL Low 6 - 8 g/dL [facility] Sodium [Moles/Vol] 141 mmol/L 135 - 145 mmol/L [facility] Urea nitrogen [Mass/Vol] 8 mg/dL 8 - 25 mg/dL [facility] Urea nitrogen/Creatinine [Mass ratio] 16.0 mg/mg 10 - 20 [facility] has implemented the eGFR calculation approach that does not have a coefficient for race that conforms to the NKF-ASN Task Force Recommendations. [facility] Glucose (Bld) [Mass/Vol]on 0 12-05-2021 Glucose [Mass/Vol] 137 mg/dL High 65 - 99 mg/dL [facility] Interpretation and review of laboratory results Abnormal [facility] Glucose [Mass/Vol] 156 mg/dL High 65 - 99 mg/dL [facility] Interpretation and review of laboratory results Abnormal [facility] Glucose [Mass/Vol] 92 mg/dL 65 - 99 mg/dL [facility] Interpretation and review of laboratory results Normal [facility] Glucose [Mass/Vol] 204 mg/dL High 65 - 99 mg/dL [facility] Interpretation and review of laboratory results Abnormal [facility] Magnesiumon 12-05-2021 Magnesium [Mass/Vol] 2.1 mg/dL 1.6 - 2 .4 mg/dL [facility] Magnesium [Mass/Vol]on 12-05 Interpretation and review of laboratory results Normal [facility] CT ANGIOGRAM CHEST ABDOMEN P ELVISon 12-04-2021 [...] process. 2. Normal appendix and no adenopathy. [employer] ASR/what3wordsf Workstation ID: [id number] Dictated by: KENNY QUICK on ThuDec 04, 2021 2:38:14 AM EDT Transcribed by: GELY STRICKLAND on ThuDec 04, 2021 2:42:41 AM EDT Finalized by: KENNY QUICK on ThuDec 04, 2021 3:39:51 AM EDT Normal [facility] Comment on above: Order Comment: Injur y/Trauma or Illness?:Illness/Other How long have you had these symptoms (acute/chronic)?:Acute Reason for exam?:hypotension right flank pain Type of Exam?:Initial Additional signs and symptoms?:low blood pressure for current stay in the ER, most recent blood pressure of 93/66, previous blood pressure of 97/68 CT Angiogram Chest Abdomen P [facility] 12-04-2021 AORTA: 1. Intact thoracic and abdominal [...] process. 2. Normal appendix and no adenopathy. VKR/what3wordsf Workstation ID: [id number] [employer] EXAMINATION: CT ANGIOGRAM CHEST ABDOMEN PELVIS HISTORY: [...] STRUCTURES: There is no acute osseous abnormality. [facility] Kenny Quick MD - 12/04/2021 EXAMINATION: CT [...] and no adenopathy. 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 No discrete large radiopaque obstructing ureteral stone. Multiple calcified pelvic phleboliths. Colonic diverticula without diverticulitis. 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 No acute bony abnormality. 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 Workstation ID: [id number] [facility] CT Kidney StoneOrdered By: Fernanda Najera on 12-04-2021 [facility] Work Phone: D-Dimer, Quantitativeon Fibrin D-dimer FEU (PPP) [Mass/Vol] 0.57 High [facility] Interpretation and review of laboratory results Abnormal [facility] A D-dimer concentrat ion of <0.5 micrograms per milliliter FEU is considered a low probability for pulmonary embolus (PE) and deep venous thrombosis (DVT). Results of this test should always be interpreted in conjunction with the patient's medical history,clinical presentation, and other findings. Clinical diagnosis should not be based on the results of the D-dimer alone. [facility] ECG 12 Leadon 12-04-2021 Atrial Rate 88 BPM [facility] P [place] 53 degrees [facility] P-R Interval 140 ms [facility] Q-T Interval 412 ms [facility] QRS Duration 92 ms [facility] QTC Calculation (Bezet) 498 ms [facility] R [place] 16 degrees [facility] T [place] 45 degrees [facility] Ventricular Rate 88 BPM [facility] Sinus rhythm with Premature atrial complexes Prolonged QT Abnormal ECG Confirmed by Marguerite Holbrook MD ([id number]) on 12/04/2021 3:01:08 PM MUSE [facility] Atrial Rate 91 BPM [facility] P [place] 42 degrees [facility] P-R Interval 132 ms [facility] Q-T Interval 414 ms [facility] QRS Duration 92 ms [facility] QTC Calculation (Bezet) 509 ms [facility] R [place] 9 degrees [facility] T [place] 43 degrees [facility] Ventricular Rate 91 BPM [facility] Sinus rhythm with Premature atrial complexes Low voltage QRS Prolonged QT Abnormal ECG ECG Cart Interpretation see physician note for interpretation. Confirmed by Danielle Villaseñor ([id number]) on 12/04/2021 2:52:53 PM MUSE [facility] EKGon 12-04-2021 Ordered by an unspec ified provider. [facility] Glucose (Bld) [Mass/Vol]on 0 12-04-2021 Glucose [Mass/Vol] 207 mg/dL High 65 - 99 mg/dL [facility] Interpretation and review of laboratory results Abnormal [facility] Glucose [Mass/Vol] 184 mg/dL High 65 - 99 mg/dL [facility] Interpretation and review of laboratory results Abnormal [facility] Glucose [Mass/Vol] 173 mg/dL High 65 - 99 mg/dL [facility] Interpretation and review of laboratory results Abnormal [facility] Glucose [Mass/Vol] 167 mg/dL High 65 - 99 mg/dL [facility] Interpretation and review of laboratory results Abnormal [facility] Hepatic function 2000 panelo n 12-04-2021 Albumin [Mass/Vol] 3.5 g/dL 3.2 - 5.2 g/dL [facility] ALP [Catalytic activity/Vol] 66 U/L 40 - 150 U/L [facility] ALT [Catalytic activity/Vol] 19 U/L 14 - 65 U/L [facility] AST [Catalytic activity/Vol] 13 U/L 0 - 45 U/L [facility] Bilirubin [Mass/Vol] 0.3 mg/dL 0 - 1.3 mg/dL [facility] Bilirubin.conjugated [Mass/Vol] mg/dL 0 - 0.4 mg/dL [facility] Interpretation and review of laboratory results Normal [facility] Protein [Mass/Vol] 7.0 g/dL 6 - 8 g/dL [facility] Lactate [Moles/Vol]on 2021 Interpretation and review of laboratory results Normal [facility] Lactic Acid, Plasmaon 2021 Lactate [Moles/Vol] 0.8 mmol/L 0.6 - 2 mmol/L [facility] Lipaseon 12-04-2021 Lipase [Catalytic activity/Vol] 168 U/L 73 - 393 U/L [facility] Lipase [Catalytic activity/V ol]on 12-04-2021 Interpretation and review of laboratory results Normal [facility] Magnesium Levelon 12-04-2021 Magnesium [Mass/Vol] 2.2 mg/dL 1.6 - 2 .4 mg/dL [facility] Magnesium [Mass/Vol]on 12-04 Interpretation and review of laboratory results Normal [facility] Troponinon 12-04-2021 Troponin I ng/L NINF - 59 ng/L [facility] Troponin I Interpretation Normal [facility] UrinalysisOrdered By: Belgica Glover on 12-04-2021 Bacteria Auto Ql (U) None Seen None Se en /hpf [facility] Bilirubin Ql (U) Negative Negative [facility] th Clarity Refractometry automated (U) Cloudy Abnormal Clear [facility] Color (U) Yellow Colorless, Yellow [facility] Epithelial cells.squamous Auto (Urine sed) [#/Area] 18 High [facility] Glucose Auto test strip (U) [Mass/Vol] >=500 Abnormal Negative mg/dL [facility] Hemoglobin Auto test strip Ql (U) Large Abnormal Negative [facility] Interpretation and review of laboratory results Abnormal [facility] Ketones (U) [Mass/Vol] Trace Abnormal Negat isabella mg/dL [facility] Leukocyte esterase Auto test strip Ql (U) Moderate Abnormal Negative [facility] h Mucus Auto (Urine sed) [#/Area] Many Abnormal None Seen, Rare /lpf [facility] Nitrite Auto test strip Ql (U) Negative Negative [facility] pH (U) 5.5 [pH] 5 - 7 [facility] Protein (U) [Mass/Vol] Negative Negat isabella mg/dL [facility] RBC Auto (Urine sed) [#/Area] High [facility] Specific gravity (U) [Rel density] 1.045 High 1.005 - 1.025 [facility] Urobilinogen (U) [Mass/Vol] mg/dL [facility] mg/dL [facility] WBC Auto (Urine sed) [#/Area] 8 High [facility] Microscopic examinat ion is performed on all urinalysis samples and only positive findings are reported. The test for blood on the chemical analytic portion of urinalysis may also be positive due to hemoglobinuria and myoglobinuria and if red blood cells are present they are quantified by microscopic examination. [facility] Urine Drug Screenon 12-05-19 22 Amphetamines Ql (U) Not detected None Detected [facility] Comment on above: Urine Amphetamine Cu toff: < 1000 ng/mL = None Detected Barbiturates Screen Ql (U) Not detected None Detected [facility] Comment on above: Urine Barbiturates C utoff: < 200 ng/mL = None Detected Benzodiazepines Ql (U) Not detected None Detected [facility] Comment on above: Urine Benzodiazepine Cutoff: < 200 ng/mL = None Detected Buprenorphine Ql (U) Not detected None Detected [facility] Comment on above: Urine Buprenorphine Cutoff: < 5 ng/mL = None Detected Cannabinoids Screen Ql (U) Not detected None Detected [facility] Comment on above: Urine Cannabinoids C utoff: < 50 ng/mL = None Detected Cocaine Ql (U) Not detected None Detected [facility] Comment on above: Urine Cocaine Cutoff : < 300 ng/mL = None Detected fentaNYL+Norfentanyl Screen Ql (U) Not detected None Detected [facility] Comment on above: Urine Fentanyl Cutof f: < 1 ng/mL = None Detected Interpretation and review of laboratory results Normal [facility] Methadone Screen Ql (U) Not detected None Detected [facility] Comment on above: Urine Methadone Cuto ff: < 300 ng/mL = None Detected Opiates Screen Ql (U) Not detected None Detected [facility] Comment on above: Urine Opiates Cutoff : < 300 ng/mL = None Detected oxyCODONE Ql (U) Not detected None Detected [facility] Comment on above: Urine Oxycodone Cuto ff: < 100 ng/mL = None Detected Screen results shoul d be used for treatment purposes only. [facility] Basic metabolic 2000 panelon 12-03-2021 Anion gap [Moles/Vol] 10 mmol/L 10 - 2 0 mmol/L [facility] Calcium [Mass/Vol] 9.2 mg/dL 8.4 - 10. 2 mg/dL [facility] Chloride [Moles/Vol] 107 mmol/L 98 - 10 8 mmol/L [facility] Creatinine [Mass/Vol] 0.81 mg/dL 0.40 - 1.10 mg/dL [facility] GFR/1.73 sq M.predicted CKD-EPI (S/P/Bld) [Vol rate/Area] 91 - PINF [facility] Comment on above: Estimated GFR was ca lculated using the 2020 CKD-EPI creatinine equation. Glucose [Mass/Vol] 163 mg/dL High 65 - 99 mg/dL [facility] HCO3 [Moles/Vol] 27 mmol/L 21 - 32 mmol/L [facility] Interpretation and review of laboratory results Abnormal [facility] Potassium [Moles/Vol] 3.6 mmol/L 3.5 - 5.1 mmol/L [facility] Sodium [Moles/Vol] 140 mmol/L 135 - 145 mmol/L [facility] Urea nitrogen [Mass/Vol] 17 mg/dL 8 - 25 mg/dL [facility] Urea nitrogen/Creatinine [Mass ratio] 21.0 mg/mg High 10 - 20 [facility] has implemented the eGFR calculation approach that does not have a coefficient for race that conforms to the NKF-ASN Task Force Recommendations. [facility] CBC Auto Differentialon 06-0 -2021 Basophils (Bld) [#/Vol] 0.06 10*3/uL [facility] Basophils/100 WBC (Bld) 1.0 % [facility] Eosinophils (Bld) [#/Vol] 0.56 10*3/uL High [facility] Eosinophils/100 WBC (Bld) 8.9 % [facility] Erythrocyte distribution width (RBC) [Entitic vol] 12.1 % 11.6 - 14.8 % [facility] Hematocrit (Bld) [Volume fraction] 39.3 % 36 - 46 % [facility] Hemoglobin (Bld) [Mass/Vol] 13.8 g/dL 12 - 16 g/dL [facility] Immature granulocytes (Bld) [#/Vol] 0.01 10*3/uL [facility] Immature granulocytes/100 WBC (Bld) 0.20 % [facility] Comment on above: The IG parameter is the percentage of metamyelocytes, myelocytes and promyelocytes. An immature granulocyte count (IG) of 1% or more suggests the possibility of infection, an IG count of 3% is very likely related to an infection. Interpretation and review of laboratory results Abnormal [facility] Lymphocytes (Bld) [#/Vol] 2.01 10*3/uL [facility] Lymphocytes/100 WBC (Bld) 32.0 % [facility] MCH (RBC) [Entitic mass] 30.9 pg 26 - 34 pg [facility] MCHC (RBC) [Mass/Vol] 35.1 g/dL 31 - 3 7 g/dL [facility] MCV (RBC) [Entitic vol] 88.1 fL 80 - 100 fL [facility] Monocytes (Bld) [#/Vol] 0.52 10*3/uL [facility] Monocytes/100 WBC (Bld) 8.3 % [facility] Neutrophils (Bld) [#/Vol] 3.12 10*3/uL [facility] Neutrophils/100 WBC (Bld) 49.6 % [facility] Nucleated RBC (Bld) [#/Vol] 0.00 10*3/uL [facility] Nucleated RBC/100 WBC (Bld) [Ratio] 0.0 % [facility] Platelet mean volume (Bld) [Entitic vol] 9.1 fL Low 9.4 - 12.4 fL [facility] Platelets (Bld) [#/Vol] 237 10*3/uL [facility] RBC (Bld) [#/Vol] 4.46 10*6/uL [facility] eah WBC (Bld) [#/Vol] 6.28 10*3/uL [facility] 12-03-2021 Radiology Study observation (narrative) [facility] UR Microalbumin/Creatinine R atio Randomon 11-19-2021 Microalbumin/creatinin e Ratio 16.3 mg/G Normal 0.0-30.0 [facility] Comment on above: Performed By: #### U MACR #### [facility] [address] [place] [address] UR Creatinine Random 116.6 mg/dL Normal Not Establ [facility] Comment on above: Performed By: #### U MACR #### [facility] [address] [place] [address] UR Microalbumin Random 1.90 mg/dL Normal Not Establ [facility] Comment on above: Performed By: #### U MACR #### [facility] [address] [place] [address] CT ABDOMEN PELVIS WITHOUT CO NTRASTon 11-15-2021 [...] ThuNovember 15, 2021 6:49:18 AM EDT Normal [facility] Comment on above: Order Comment: Injur y/Trauma or Illness?:Illness/Other How long have you had these symptoms (acute/chronic)?:Acute Reason for exam?:Nausea/vomiting, right sided abdominal pain and right flank pain Type of Exam?:Initial Additional signs and symptoms?: CBC AUTO DIFFon 11-12-2021 BASO # 0.1 103/ul Normal 0.0-0.1 [facility] Comment on above: Performed By: #### C BC #### [facility] [address] [place] [address] Dr. Teressa Mayen Basophils/100 WBC (Bld) 0.7 % Normal 0.2-2.0 [facility] Comment on above: Performed By: #### C BC #### [facility] [address] [place] [address] Dr. Teressa Mayen EO # 0.1 103/ul Normal 0.0-0.7 [facility] Comment on above: Performed By: #### C BC #### [facility] [address] [place] [address] Dr. Teressa Mayen Eosinophils/100 WBC (Bld) 1.3 % Normal 0.9-7.0 [facility] Comment on above: Performed By: #### C BC #### [facility] [address] [place] [address] Dr. Teressa Mayen Erythrocyte distribution width (RBC) [Ratio] 11.9 % Normal 11.0-15.0 [facility] Comment on above: Performed By: #### C BC #### [facility] [address] [place] [address] Dr. Teressa Mayen Hematocrit (Bld) [Volume fraction] 46.5 % Normal 36.0-48.0 [facility] Comment on above: Performed By: #### C BC #### [facility] [address] [place] [address] Dr. Teressa Mayen Hemoglobin (Bld) [Mass/Vol] 16.1 g/dL Critically high 12.0-16.0 [facility] Comment on above: Performed By: #### C BC #### [facility] [address] [place] [address] Dr. Teressa Mayen IG # 0.03 10e3/ul Normal 0.00-0.03 [facility] Comment on above: Performed By: #### C BC #### [facility] [address] [place] [address] Dr. Teressa Mayen IG % 0.3 % Normal 0.0-0.5 [facility] Comment on above: Performed By: #### C BC #### [facility] [address] [place] [address] Dr. Teressa Mayen LYMPH # 1.9 103/ul Normal 1.2-3.8 [facility] Comment on above: Performed By: #### C BC #### [facility] [address] [place] [address] Dr. Teressa Mayen Lymphocytes/100 WBC (Bld) 19.1 % Critically low 20.5-60.0 [facility] Comment on above: Performed By: #### C BC #### [facility] [address] [place] [address] Dr. Teressa Mayen MANUAL DIFF REQ NO Normal [facility] Comment on above: Performed By: #### C BC #### [facility] [address] [place] [address] Dr. Teressa Mayen MCH (RBC) [Entitic mass] 29.9 pg Normal 26.7-34.0 [facility] Comment on above: Performed By: #### C BC #### [facility] [address] [address] [address] Teressa Mayen MCHC (RBC) [Mass/Vol] 34.6 g/dL Normal 29.9-35.2 [facility] Comment on above: Performed By: #### C BC #### [facility] [address] [address] [address] Teressa Mayen MCV (RBC) [Entitic vol] 86.4 fL Normal 81.0-99.0 [facility] Comment on above: Performed By: #### C BC #### [facility] [address] [address] [address] Teressa Mayen MONO # 0.6 103/ul Normal 0.3-0.8 [facility] Comment on above: Performed By: #### C BC #### [facility] [address] [address] [address] Teressa Mayen Monocytes/100 WBC (Bld) 5.8 % Normal 1.7-12.0 [facility] Comment on above: Performed By: #### C BC #### [facility] [address] [address] [address] Teressa Mayen NEUT # 7.2 103/ul Critically high 1.4-6.5 [facility] Comment on above: Performed By: #### C BC #### [facility] [address] [address] [address] Teressa Mayen Neutrophils/100 WBC (Bld) 72.8 % Normal 43.0-75.0 [facility] Comment on above: Performed By: #### C BC #### [facility] [address] [address] [address] Teressa Mayen Platelet mean volume (Bld) [Entitic vol] 9.4 fL Critically low 9.5-13.5 [facility] Comment on above: Performed By: #### C BC #### [facility] [address] [address] [address] Teressa Mayen PLT 267 103/ul Normal 150-450 [facility] Comment on above: Performed By: #### C BC #### [facility] [address] [place], [place] [address] Dr. Teressa Mayen RBC 5.38 106/ul Normal 4.20-5.40 [facility] Comment on above: Performed By: #### C BC #### [facility] [address] [place], [place] [address] Dr. Teressa Mayen WBC 9.9 103/ul Normal 4.0-11.0 [facility] Comment on above: Performed By: #### C BC #### [facility] [address] [place], [place] [address] ABD/PELVIS WO CONon 11-12 CT ABD/PELVIS WO CON EXAM: CT SCAN OF TH E ABDOMEN AND PELVIS WITHOUT INTRAVENOUS CONTRAST [...] GABY PFEIFFER Date: 2021-11-12 00:33 Normal [facility] CULTURE URINEon 11-12-2021 CULTURE URINE Culture Observations : HEAVY GROWTH OF MIXED GENITAL LUCIA. NO POTENTIAL PATHOGENS SEEN. Normal [facility] Comment on above: Performed By: #### U RCX #### [facility] [address] [address] [address] Teressa Mayen Covid-19 PCR ([facility])on 10-27 SARS-CoV-2 (COVID-19) RNA JENNIFER+probe Ql (Unsp spec) Not detected Normal NOT DETECTED [facility] Comment on above: Result Comment: When diagnostic [...] for this test is supported by the [place] of Health and Human Service's declaration that [...] used). Performed By: #### C VDTBH #### [facility] [address] [place] [address] Dr. Teressa Mayen DRUG SCREEN RAPID (URINE)on 11-12-2021 AMP Negative Normal NEGATIVE [facility] Comment on above: Performed By: #### D JOSE R MARR ERUR #### [facility] [address] [address] [address] Teressa Mayen BAR Negative Normal NEGATIVE [facility] Comment on above: Performed By: #### D JOSE R MARR, ERUR #### [facility] [address] [address] [address] Teressa Mayen BUP Negative Normal NEGATIVE [facility] Comment on above: Performed By: #### D JOSE R MARR, ERUR #### [facility] [address] [address] [address] Teressa Mayen BZO Negative Normal NEGATIVE [facility] Comment on above: Performed By: #### D JOSE R MARR, ERUR #### [facility] [address] [address] [address] Teressa Mayen HOME Negative Normal NEGATIVE [facility] Comment on above: Performed By: #### D JOSE R MARR, ERUR #### [facility] [address] [address] [address] Teressa Mayen CUT-OFFS SEE BELOW Normal [facility] Comment on above: Result Comment: AMP (Amphetamine): [...] #### D JOSE R MARR, ERUR #### [facility] [address] [address] [address] Teressa Mayen DRUG CUT HEADER DRUG CLASS TEST SYST EM CUT-OFF CONCENTRATIONS ARE FOLLOWS: Normal [facility] Comment on above: Performed By: #### D JOSE R MARR, ERUR #### [facility] [address] [address] [address] Teressa Mayen mAMP Negative Normal NEGATIVE [facility] Comment on above: Performed By: #### D CURLY MARRICRO, ERUR #### [facility] [address] [address] [address] Teressa Mayen MTD Negative Normal NEGATIVE [facility] Comment on above: Performed By: #### D MEGAN MARRRO, ERUR #### [facility] [address] [address] [address] Teressa Mayen OPI Negative Normal NEGATIVE [facility] Comment on above: Performed By: #### D MEGAN MARRRO, ERUR #### [facility] [address] [address] [address] Teressa Mayen OXY Negative Normal NEGATIVE [facility] Comment on above: Performed By: #### D MEGAN MARRRO, ERUR #### [facility] [address] [address] [address] Teressa Mayen PCP Negative Normal NEGATIVE [facility] Comment on above: Performed By: #### D JOSE R MARR, ERUR #### [facility] [address] [address] [address] Teressa Mayen PPX Negative Normal NEGATIVE [facility] Comment on above: Performed By: #### D JOSE R MARR, ERUR #### [facility] [address] [address] [address] Teressa Mayen TCA Negative Normal NEGATIVE [facility] Comment on above: Performed By: #### D MEGAN MARRRO, ERUR #### [facility] [address] [address] [address] Teressa Mayen THC Negative Normal NEGATIVE [facility] Comment on above: Performed By: #### D JOSE R MARR, ERUR #### [facility] [address] [address] [address] Teressa Mayen ER URINE PROFILEon 2 Bilirubin Ql (U) Negative Normal NEGATIVE [facility] Comment on above: Performed By: #### D JOS ER MARR, ERUR #### [facility] [address] [address] [address] Teressa Mayen Clarity (U) SL CLOUDY Abnormal CLEAR [facility] Comment on above: Performed By: #### D JOSE R MARR, ERUR #### [facility] [address] [address] [address] Teressa Mayen Color (U) YELLOW Normal YELLOW [facility] Comment on above: Performed By: #### D JOSE R MARR, ERUR #### [facility] [address] [address] [address] Teressa VILLATORO A micrscopic examina tion will be performed if indicated. Normal [facility] Comment on above: Performed By: #### D JOSE R MARR, ERUR #### [facility] [address] [address] [address] Teressa Mayen Glucose Ql (U) >1000 Abnormal NEGATIVE [facility] Comment on above: Performed By: #### D JOSE R MARR, ERUR #### [facility] [address] [address] [address] Teressa Maeyn Hemoglobin Ql (U) TRACE-INTACT Abnormal NEGATIVE [facility] Comment on above: Performed By: #### D JOSE R MARR, ERUR #### [facility] [address] [address] [address] Teressa Mayen Ketones Ql (U) 15 mg/dl Abnormal NEGATIVE [facility] Comment on above: Performed By: #### D JOSE R MARR, ERUR #### [facility] [address] [address] [address] Teressa Mayen LEUKOCYTES MODERATE Abnormal NEGATIVE [facility] Comment on above: Performed By: #### D JOSE R MARR, ERUR #### [facility] [address] [address] [address] Teressa Mayen Nitrite Ql (U) Negative Normal NEGATIVE [facility] Comment on above: Performed By: #### D JOSE R MARR, ERUR #### [facility] [address] [address] [address] Teressa Mayen pH (U) 5.5 [pH] Normal 5-9 [facility] Comment on above: Performed By: #### D JOSE R MARR, ERUR #### [facility] [address] [place] [address] Dr. Teressa Mayen SPEC GRAVITY >=1.030 Abnormal 1.005-<=1. 025 [facility] Comment on above: Performed By: #### D JOSE R MARR ERUR #### [facility] [address] [place] [address] Dr. Teressa Mayen UA PROTEIN Negative Normal NEGATIVE/ TRACE [facility] Comment on above: Performed By: #### D JOSE R MARR ERUR #### [facility] [address] [place] [address] Dr. Teressa Mayen UR MICRO IND INDICATED Normal [facility] Comment on above: Performed By: #### D JOSE R MARR ERUR #### [facility] [address] [place] [address] Dr. Teressa Mayen Urobilinogen Qn (U) 0.2 {Diaz'U}/dL Normal 0.2 - 1. 0 [facility] Comment on above: Performed By: #### D JOSE R MARR, ERUR #### [facility] [address] [place] [address] Dr. Teressa Mayen POINT OF CARE GLUCOSEon 05- Glucose [Mass/Vol] 289 mg/dL Critically high 74-106 [facility] Comment on above: Performed By: #### P OCGLUC #### [facility] [address] [place] [address] Dr. Teressa Mayen Glucose [Mass/Vol] 169 mg/dL Critically high 74-106 [facility] Comment on above: Performed By: #### P OCGLUC #### [facility] [address] [address] [address] Teressa Mayen PROF 14(COMP METB)on 022 Albumin [Mass/Vol] 3.9 g/dL Normal 3.4-5.0 [facility] Comment on above: Performed By: #### C MP #### [facility] [address] [place] [address] Dr. Teressa Mayen Albumin/Globulin [Mass ratio] 1.1 {ratio} Normal [facility] Comment on above: Performed By: #### C MP #### [facility] [address] [place] [address] Dr. Teressa Mayen ALP [Catalytic activity/Vol] 83 U/L Normal 46-116 [facility] Comment on above: Performed By: #### C MP #### [facility] [address] [place] [address] Dr. Teressa Mayen ALT [Catalytic activity/Vol] 18 U/L Normal 14-59 [facility] Comment on above: Performed By: #### C MP #### [facility] [address] [place] [address] Dr. Teressa Mayen Anion gap [Moles/Vol] 15.8 mmol/L Normal [facility] Comment on above: Performed By: #### C MP #### [facility] [address] [place] [address] Dr. Teressa Mayen AST [Catalytic activity/Vol] 10 U/L Critically low 15-37 [facility] Comment on above: Performed By: #### C MP #### [facility] [address] [place] [address] Dr. Teressa Mayen Bilirubin [Mass/Vol] 0.6 mg/dL Normal 0.2-1.0 [facility] Comment on above: Performed By: #### C MP #### [facility] [address] [place] [address] Dr. Teressa Mayen Calcium [Mass/Vol] 9.0 mg/dL Normal 8.5-10.1 [facility] Comment on above: Performed By: #### C MP #### [facility] [address] [place] [address] Dr. Teressa Mayen Chloride [Moles/Vol] 104 mmol/L Normal 98-107 [facility] Comment on above: Performed By: #### C MP #### [facility] [address] [address] [address] Teressa Mayen CO2 [Moles/Vol] 25.1 mmol/L Normal 21.0-32.0 [facility] Comment on above: Performed By: #### C MP #### [facility] [address] [address] [address] Teressa Mayen Creatinine [Mass/Vol] 0.82 mg/dL Normal 0.55-1.02 [facility] Comment on above: Performed By: #### C MP #### [facility] [address] [place] [address] Dr. Teressa Mayen EGFR-AF IRISH >60 Normal >=60 [facility] Comment on above: Performed By: #### C MP #### [facility] [address] [place] [address] Dr. Teressa Mayen EGFR-NON AF IRISH >60 Normal >=60 [facility] Comment on above: Performed By: #### C MP #### [facility] [address] [place] [address] Dr. Teressa Mayen Globulin (S) [Mass/Vol] 3.7 g/dL Normal [facility] Comment on above: Performed By: #### C MP #### [facility] [address] [place] [address] Dr. Teressa Mayen Glucose [Mass/Vol] 280 mg/dL Critically high 74-106 [facility] Comment on above: Performed By: #### C MP #### [facility] [address] [place] [address] Dr. Teressa Mayen Potassium [Moles/Vol] 3.9 mmol/L Normal 3.5-5.1 [facility] Comment on above: Performed By: #### C MP #### [facility] [address] [place] [address] Dr. Teressa Mayen Protein [Mass/Vol] 7.6 g/dL Normal 6.4-8.2 [facility] Comment on above: Performed By: #### C MP #### [facility] [address] [address] [address] Teressa Mayen Sodium [Moles/Vol] 141 mmol/L Normal 136-145 [facility] Comment on above: Performed By: #### C MP #### [facility] [address] [address] [address] Teressa Mayen Urea nitrogen [Mass/Vol] 17.0 mg/dL Normal 7.0-18.0 [facility] Comment on above: Performed By: #### C MP #### [facility] [address] [address] [address] Teressa Mayen Urea nitrogen/Creatinine [Mass ratio] 20.7 mg/mg Normal [facility] Comment on above: Performed By: #### C MP #### [facility] [address] [address] [address] Teressa Mayen URINE MICROSCOPIC ONLYon BACTERIA SMALL Abnormal NONE SEEN [facility] Comment on above: Performed By: #### D JOSE R MARR, ERUR #### [facility] [address] [address] [address] Teressa Mayen Bacteria identified Cx Nom (U) INDICATED Normal [facility] Comment on above: Performed By: #### D JOSE R MARR, ERUR #### [facility] [address] [address] [address] Teressa Mayen CAST NONE SEEN Normal NONE SEEN [facility] Comment on above: Performed By: #### D JOSE R MARR, ERUR #### [facility] [address] [address] [address] Teressa Mayen Crystals LM Nom (Urine sed) NONE SEEN Normal NONE SEEN [facility] Comment on above: Performed By: #### D JOSE R MARR, ERUR #### [facility] [address] [address] [address] Teressa Mayen Epithelial cells LM Ql (Urine sed) MODERATE Abnormal NONE SEEN /RARE [facility] Comment on above: Performed By: #### D JOSE R MARR, ERUR #### [facility] [address] [place], [place] [address] Dr. Teressa Mayen MUCOUS SMALL Abnormal NONE SEEN [facility] Comment on above: Performed By: #### D MEGAN MARRRO, ERUR #### [facility] [address] [place], [place] [address] Dr. Teressa Mayen RBC 2-5 Abnormal 0-2 [facility] Comment on above: Performed By: #### D JOSE R MARR, ERUR #### [facility] [address] [place], [place] [address] Dr. Teressa Mayen WBC 5-10 Abnormal NONE SEEN [facility] Comment on above: Performed By: #### D JOSE R MARR, ERUR #### [facility] [address] [place], [place] [address] Dr. 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 [facility] MRI CERVICAL SPINE WO CONTRAST : [...] through upper visualized thoracic levels are unremarkable. [facility] RADIOLOGY Suhail Joiner MD - 11/07/2021 MRI [...] STENOSIS AND LEFT C5-6 NEURAL FORAMINAL NARROWING. [employer] Phone: Radiology Study observation (narrative) [employer] Phone: MRI CERVICAL SPINE WO CONTRA STOrdered By: Suhail Joiner on 11-07-2021 [employer] Phone: XR Shoulder Complete Right*o n 10-29-2021 XR Shoulder Complete Right* HISTORY: FINDINGS: Mild osteophyte formation involves the AC joint. Mild down-sloping acromion. No fracture or dislocation or rotator cuff calcification is seen. Upper chest is clear. IMPRESSION: 1. Mild arthritis, no AC separation or fracture. Report reported and signed by Tunde Lou on 10/29/2021 0935 Normal [facility] Specialist CT KIDNEY STONEon 10-17-2021 CT KIDNEY STONE [...] on ThuOct 16, 2021 11:48:13 PM EDT [facility] Comment on above: Order Comment: Injur [...] on 09-30-2021 Albumin [Mass/Vol] 3.9 g/dL 3.2-5.5 [facility] Automated erythrocytes count in urine sediment (number/area)Ordered By: Vivek Ceballos on 09-30-2021 RBC Auto (Urine sed) [#/Area] Innumerable [HPF] [facility] Automated leukocytes count i n urine sediment (number/area)Ordered By: Vivek Ceballos on 09-30-2021 WBC Auto (Urine sed) [#/Area] 20-49 [HPF] [facility] Automated urine sediment vinod cium oxalate crystal count by microscopy (number/high powOrdered By: Vivek Ceballos on 09-30-2021 Calcium oxalate crystals LM.HPF (Urine sed) [#/Area] 4+ [HPF] [facility] Basophils Auto (Bld) [#/Vol] Ordered By: Vivek Ceballos on 09-30-2021 Basophils (Bld) [#/Vol] 0.1 10*3/uL 0.0-0.2 [facility] Basophils/100 WBC Auto (Bld) Ordered By: Vivek Ceballos on 09-30-2021 Basophils/100 WBC (Bld) 0.9 % [facility] Bilirubin Test strip Ql (U)O rdered By: Vivek Ceballos on 09-30-2021 Bilirubin Ql (U) Negative Negative [facility] Blood hemoglobin measurement (mass/volume)Ordered By: Vivek Ceballos on 09-30-2021 Hemoglobin (Bld) [Mass/Vol] 15.2 g/dL 11.8-15.4 [facility] Blood leukocytes automated c ount (number/volume)Ordered By: Vivek Ceballos on 09-30-2021 WBC (Bld) [#/Vol] 7.1 10*3/uL 4.5-11.0 [facility] Color Auto (U)Ordered By: Juan Ceballos on 09-30-2021 Color (U) Yellow Yellow [facility] Creatinine and Glomerular fi ltration rate.predicted panel (S/P/Bld)Ordered By: Vivek Ceballos on 09-30-2021 Creatinine [Mass/Vol] 0.59 mg/dL 0.44-1.03 [facility] Eosinophils Auto (Bld) [#/Vo l]Ordered By: Vivek Ceballos on 09-30-2021 Eosinophils (Bld) [#/Vol] 0.2 10*3/uL 0.0-0.45 [facility] Eosinophils/100 WBC Auto (Bl d)Ordered By: Vivek Ceballos on 09-30-2021 Eosinophils/100 WBC (Bld) 2.9 % [facility] Erythrocyte distribution wid th Auto (RBC) [Ratio]Ordered By: Vivek Ceballos on 09-30-2021 Erythrocyte distribution width (RBC) [Ratio] 13.0 % 11.9-15.3 [facility] Estimated glomerular filtrat ion rate (GFR) non- AmericanOrdered By: Vivek Ceballos on 09-30-2021 GFR/1.73 sq M.predicted among non-blacks MDRD (S/P/Bld) [Vol rate/Area] > 60 mL/Min [facility] Globulin Calc (S) [Mass/Vol] Ordered By: Vivek Ceballos on 09-30-2021 Globulin (S) [Mass/Vol] 3.2 g/dL [facility] HCG ( test) IA.rapi d Ql (U)Ordered By: JACINTA PHILLIPS on 09-30-2021 HCG ( test) Ql (U) Negative [facility] Hematocrit Auto (Bld) [Volum e fraction]Ordered By: Vivek Ceballos on 09-30-2021 Hematocrit (Bld) [Volume fraction] 44.1 % 34.0-46.4 [facility] Ketones Auto test strip (U) [Mass/Vol]Ordered By: Vivek Ceballos on 09-30-2021 Ketones (U) [Mass/Vol] Trace Negative [facility] Laboratory - Hematology and Cell countsOrdered By: Vivek Ceballos on 09-30-2021 Nucleated RBC/100 WBC (Bld) [Ratio] 0.2 % 0-0.5 [facility] Laboratory - UrinalysisOrder ed By: Vivek Ceballos on 09-30-2021 Hyaline casts LM Ql (Urine sed) 0-8 [LPF] [facility] Lymphocytes Auto (Bld) [#/Vo l]Ordered By: Vivek Ceballos on 09-30-2021 Lymphocytes (Bld) [#/Vol] 2.5 10*3/uL 1.00-4.8 [facility] Lymphocytes/100 WBC Auto (Bl d)Ordered By: Vivek Ceballos on 09-30-2021 Lymphocytes/100 WBC (Bld) 35.6 % [facility] MCH Auto (RBC) [Entitic mass ]Ordered By: Vivek Ceballos on 09-30-2021 MCH (RBC) [Entitic mass] 30.5 pg 24.7-34.3 [facility] MCHC Auto (RBC) [Mass/Vol]Or dered By: Vivek Ceballos on 09-30-2021 MCHC (RBC) [Mass/Vol] 34.4 g/dL 32.0-35.0 [facility] MCV Auto (RBC) [Entitic vol] Ordered By: Vivek Ceballos on 09-30-2021 MCV (RBC) [Entitic vol] 88.7 fL 80-100 [facility] Monocytes Auto (Bld) [#/Vol] Ordered By: Vivek Ceballos on 09-30-2021 Monocytes (Bld) [#/Vol] 0.7 10*3/uL 0.0-0.8 [facility] Monocytes/100 WBC Auto (Bld) Ordered By: Vivek Ceballos on 09-30-2021 Monocytes/100 WBC (Bld) 9.8 % [facility] Neutrophils Auto (Bld) [#/Vo l]Ordered By: Vivek Ceballos on 09-30-2021 Neutrophils (Bld) [#/Vol] 3.6 10*3/uL 1.8-7.7 [facility] Neutrophils/100 WBC Auto (Bl d)Ordered By: Vivek Ceballos on 09-30-2021 Neutrophils/100 WBC (Bld) 50.8 % [facility] Nitrite Test strip Ql (U)Ord ered By: Vivek Ceballos on 09-30-2021 Nitrite Ql (U) Negative Negative [facility] No Panel InformationOrdered By: Vivek Ceballos on 09-30-2021 Estimated GFR () > 60 mL/Min [facility] Comment on above: GFR estimated refere nce range: According to KDOQI guidelines, <60 ml/min/1.73m2 is sufficient to diagnose a patient with chronic kidney disease. Pharmacy Creatinine Clearance (Chem 146.26 [facility] Platelet mean volume Auto (B ld) [Entitic vol]Ordered By: Vivek Ceballos on 09-30-2021 Platelet mean volume (Bld) [Entitic vol] 7.3 fL 6.3-10.7 [facility] Platelets Auto (Bld) [#/Vol] Ordered By: Vivek Ceballos on 09-30-2021 Platelets (Bld) [#/Vol] 239 10*3/uL 150-450 [facility] Protein Auto test strip (U) [Mass/Vol]Ordered By: Vivek Ceballos on 09-30-2021 Protein (U) [Mass/Vol] 30 mg/dL Negative [facility] Protein [Mass/volume] in Ser um or PlasmaOrdered By: Vivek Ceballos on 09-30-2021 Protein [Mass/Vol] 7.1 g/dL 6.1-7.9 [facility] RBC Auto (Bld) [#/Vol]Ordere d By: Vivek Ceballos on 09-30-2021 RBC (Bld) [#/Vol] 4.97 10*6/uL 3.60-5.00 [facility] Serum or plasma alanine slaughter otransferase measurement without P-5'-P (enzymatic activiOrdered By: Vivek Ceballos on 09-30-2021 ALT No additional P-5'-P [Catalytic activity/Vol] 15 U/L 10-60 [facility] Serum or plasma albumin/glob ulin mass ratioOrdered By: Vivek Ceballos on 09-30-2021 Albumin/Globulin [Mass ratio] 1.2 {ratio} [facility] Serum or plasma alkaline shelby sphatase measurement (enzymatic activity/volume)Ordered By: Vivek Ceballos on 09-30-2021 ALP [Catalytic activity/Vol] 69 U/L 32-92 [facility] Serum or plasma aspartate am inotransferase measurement (enzymatic activity/volume)Ordered By: Vivek Ceballos on 09-30-2021 AST [Catalytic activity/Vol] 15 U/L 10-42 [facility] Serum or plasma calcium jeses urement (mass/volume)Ordered By: Vivek Ceballos on 09-30-2021 Calcium [Mass/Vol] 9.5 mg/dL 8.2-10.2 [facility] Serum or plasma chloride marcia surement (moles/volume)Ordered By: Vivek Ceballos on 09-30-2021 Chloride [Moles/Vol] 100 mmol/L 95-114 [facility] Serum or plasma glucose jesse urement (mass/volume)Ordered By: Vivek Ceballos on 09-30-2021 Glucose [Mass/Vol] 111 mg/dL 70-100 [facility] Comment on above: ADA recommended refe rence range Random Glucose Reference Range is dependent on time and content of last meal. Glucose of more than 200 mg/dL in a nonstressed, ambulatory subject supports the diagnosis of Diabetes Mellitus. Serum or plasma potassium me asurement (moles/volume)Ordered By: Vivek Ceballos on 09-30-2021 Potassium [Moles/Vol] 3.4 mmol/L 3.5-5.1 [facility] Serum or plasma sodium measu rement (moles/volume)Ordered By: Vivek Ceballos on 09-30-2021 Sodium [Moles/Vol] 137 mmol/L 136-146 [facility] Serum or plasma total biliru bin measurement (mass/volume)Ordered By: Vivek Ceballos on 09-30-2021 Bilirubin [Mass/Vol] 0.5 mg/dL 0.3-1.2 [facility] Serum or plasma total carbon dioxide measurement (moles/volume)Ordered By: Vivek Ceballos on 09-30-2021 CO2 [Moles/Vol] 27.6 mmol/L 22.0-30.0 [facility] Serum or plasma urea nitroge n measurement (mass/volume)Ordered By: Vivek Ceballos on 09-30-2021 Urea nitrogen [Mass/Vol] 10 mg/dL 9-23 [facility] Specific gravity Auto test s trip (U) [Rel density]Ordered By: Vivek Ceballos on 09-30-2021 Specific gravity (U) [Rel density] 1.041 1.001-1.03 0 [facility] Squamous epithelial cells de tection in urine sediment by light microscopyOrdered By: Vivek Ceballos on 09-30-2021 Epithelial cells.squamous LM Ql (Urine sed) 5-9 [HPF] [facility] Urine bacteria detection by automated methodOrdered By: Vivek Ceballos on 09-30-2021 Bacteria Auto Ql (U) Rare None Seen [facility] Urine clarity by refractomet ry automatedOrdered By: Vivek Ceballos on 09-30-2021 Clarity Refractometry automated (U) Cloudy Clear [facility] Urine culture routineOrdered By: Vivek Ceballos on 09-30-2021 Bacteria identified Cx Nom (U) 2 Days [facility] Urine glucose measurement by automated test strip (mass/volume)Ordered By: Vivek Ceballos on 09-30-2021 Glucose Auto test strip (U) [Mass/Vol] >=1000 mg/dL Normal [facility] Urine hemoglobin detection b y automated test stripOrdered By: Vivek Ceballos on 09-30-2021 Hemoglobin Auto test strip Ql (U) 3+ Negative [facility] Urine leukocyte esterase det ection by automated test stripOrdered By: Vivek Ceballos on 09-30-2021 Leukocyte esterase Auto test strip Ql (U) 2+ Negative [facility] Urine sediment crystal ident ification by light microscopyOrdered By: Vivek Ceballos on 09-30-2021 Crystals LM Nom (Urine sed) None seen [HPF] [facility] Urobilinogen Auto test strip (U) [Mass/Vol]Ordered By: Vivek Ceballos on 09-30-2021 Urobilinogen (U) [Mass/Vol] Normal mg/dL Normal [facility] pH Auto test strip (U)Ordere d By: Vivek Ceballos on 09-30-2021 pH (U) 5.5 [pH] 5.0-9.0 [facility] CT KIDNEY STONEon 08-20-2021 CT KIDNEY [...] ThuAug 19, 2021 11:33:43 PM EST Normal [facility] Comment on above: Order Comment: Injur y/Trauma or Illness?:Illness/Other How long have you had these symptoms (acute/chronic)?:Acute Reason for exam?:left flank pain Type of Exam?:Initial Additional signs and symptoms?:left flank pain XR Spine Cervical AP/Lat/Fle x/[place] 08-20-2021 XR Spine Cervical AP/Lat/Flex/Ext HISTORY: FINDINGS: [...] by Tunde Lou on 08/20/2021 1534 Normal [facility] CT CERVICAL SPINE WITHOUT ON [place] 07-28-2021 [...] both levels IMPRESSION: No acute finding Normal [facility] CT CERVICAL SPINE WITHOUT CO NTRASTon [...] ThuJul 09, 2021 8:27:22 PM EST Normal [facility] Comment on above: Order Comment: Injur [...] on ThuJul 09, 2021 8:20:13 PM EST [facility] Comment on above: Order Comment: Injur y/Trauma or Illness?:Illness/Other How long have you had these symptoms (acute/chronic)?:Acute Reason for exam?:pain in the front of her head and the back of her neck. Pt also has nausea, confusion, and disorientation. Type of Exam?:Initial Additional signs and symptoms?: NOVEL CORONAVIRUSon 06-25-20 21 PERFORMED BY [facility] Normal [facility] Comment on above: Performed By: #### C COVID #### [place] [address] SARS-CoV-2 (COVID-19) RNA JENNIFER+probe Ql (Unsp spec) Not detected Normal NOT DETECTED [facility] Comment on above: Result Comment: Nega tive [...] #### C COVID #### [place] [address] NARRATIVE This test was perfor med using isothermal JENNIFER and has been approved as Emergency Use Authorization (EUA) for the qualitative detection [id number] nucleic acid. 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 [facility] SARS-CoV-2 (COVID-19) RNA JENNIFER+probe Ql (Unsp spec) Not detected NOT DETECTED [facility] Comment on above: Negative results do not [...] patient is critically ill or clinically deteriorating. [facility] CT ABDOMEN PELVIS WITH IV CO NTRAST [...] upper pole nephrolith. 4. Status post cholecystectomy. [employer] Workstation ID: [id number] Dictated by: MARGUERITE SANDOVAL on ThuJun 13, 2021 11:05:32 PM EST Transcribed by: MANJU JAVED on ThuJun 13, 2021 11:13:19 PM EST Finalized by: MARGUERITE SANDOVAL on ThuJun 13, 2021 11:25:09 PM EST Normal [facility] Comment on above: Order Comment: Injur y/Trauma or Illness?:Illness/Other How long have you had these symptoms (acute/chronic)?:Acute Reason for exam?:right lower abdominal pain Type of Exam?:Initial Additional signs and symptoms?:n/v CBC AND DIFFERENTIALon 06-10 Basophils (Bld) [#/Vol] 0.10 10*3/uL Normal 0.00 - 0.10 [facility] Comment on above: Performed By: #### C BCDF #### [facility] [address] [place] [address] Basophils/100 WBC (Bld) 1.4 % Normal 0.0 - 2.0 [facility] Comment on above: Performed By: #### C BCDF #### [address] [address] Eosinophils (Bld) [#/Vol] 0.10 10*3/uL Normal 0.00 - 0.70 [facility] Comment on above: Performed By: #### C BCDF #### [address] [address] Eosinophils/100 WBC (Bld) 1.9 % Normal 0.0 - 6.0 [facility] Comment on above: Performed By: #### C BCDF #### [address] [address] Erythrocyte distribution width (RBC) [Ratio] 15.5 % High 11.5 - 14.5 [facility] Comment on above: Performed By: #### C BCDF #### [address] [address] Hematocrit (Bld) [Volume fraction] 43.2 % Normal 36.0 - 46.0 [facility] Comment on above: Performed By: #### C BCDF #### [address] [address] Hemoglobin (Bld) [Mass/Vol] 14.3 g/dL Normal 12.0 - 16.0 [facility] Comment on above: Performed By: #### C BCDF #### [address] [address] Lymphocytes (Bld) [#/Vol] 2.00 10*3/uL Normal 1.20 - 4.80 [facility] Comment on above: Performed By: #### C BCDF #### [address] [address] Lymphocytes/100 WBC (Bld) 29.5 % Normal 13.0 - 44.0 [facility] Comment on above: Performed By: #### C BCDF #### [address] [address] MCHC (RBC) [Mass/Vol] 33.2 g/dL Normal 32.0 - 36.0 [facility] Comment on above: Performed By: #### C BCDF #### [address] [address] MCV (RBC) [Entitic vol] 88 fL Normal 80 - 100 [facility] Comment on above: Performed By: #### C BCDF #### [address] [address] Monocytes (Bld) [#/Vol] 0.40 10*3/uL Normal 0.10 - 1.00 [facility] Comment on above: Performed By: #### C BCDF #### [address] [address] Monocytes/100 WBC (Bld) 5.6 % Normal 2.0 - 10.0 [facility] Comment on above: Performed By: #### C BCDF #### [address] [address] Neutrophils (Bld) [#/Vol] 4.20 10*3/uL Normal 1.20 - 7.70 [facility] Comment on above: Result Comment: Perc ent differential counts (%) should be interpreted in the context of the absolute cell counts (cells/L). Performed By: #### C BCDF #### [address] [address] Neutrophils/100 WBC (Bld) 61.6 % Normal 40.0 - 80.0 [facility] Comment on above: Performed By: #### C BCDF #### [address] [address] NUCLEATED RBC 0.2 /100 WBC Normal [facility] Comment on above: Performed By: #### C BCDF #### [address] [address] Platelets (Bld) [#/Vol] 255 10*3/uL Normal 150 - 450 [facility] Comment on above: Performed By: #### C BCDF #### [address] [address] RBC 4.94 x10E12/L Normal 4.00 - 5.20 [facility] Comment on above: Performed By: #### C BCDF #### [address] [address] WBC (Bld) [#/Vol] 6.8 10*3/uL Normal 4.4 - 11.3 [facility] Comment on above: Performed By: #### C BCDF #### [address] [address] COMPREHENSIVE PANELon 2020 Albumin [Mass/Vol] 4.1 g/dL Normal 3.4 - 5.0 [facility] Comment on above: Performed By: #### C MP #### [address] [address] ALP [Catalytic activity/Vol] 79 U/L Normal 33 - 110 [facility] Comment on above: Performed By: #### C MP #### [address] [address] ALT [Catalytic activity/Vol] 12 U/L Normal 7 - 45 [facility] Comment on above: Result Comment: Shaniqua ents treated with Sulfasalazine may generate falsely decreased results for ALT. Performed By: #### C MP #### [address] [address] Anion gap [Moles/Vol] 14 mmol/L Normal 10 - 20 [facility] Comment on above: Performed By: #### C MP #### [address] [address] AST [Catalytic activity/Vol] 14 U/L Normal 9 - 39 [facility] Comment on above: Performed By: #### C MP #### [address] [address] Bilirubin [Mass/Vol] 0.7 mg/dL Normal 0.0 - 1.2 [facility] Comment on above: Performed By: #### C MP #### [address] [address] Calcium [Mass/Vol] 9.5 mg/dL Normal 8.6 - 10.3 [facility] Comment on above: Performed By: #### C MP #### [address] [address] Chloride [Moles/Vol] 103 mmol/L Normal 98 - 107 [facility] Comment on above: Performed By: #### C MP #### [address] [address] Creatinine [Mass/Vol] 0.63 mg/dL Normal 0.50 - 1.05 [facility] Comment on above: Performed By: #### C MP #### [address] [address] GFR- AM. >60 Normal >60 [facility] Comment on above: Result Comment: CALC ULATIONS OF ESTIMATED GFR ARE PERFORMED USING THE MDRD STUDY EQUATION FOR THE IDMS-TRACEABLE CREATININE METHODS. CLIN CHEM 2007;53:766-72 Performed By: #### C MP #### [address] [address] GFR-NON AM. >60 Normal >60 [facility] Comment on above: Performed By: #### C MP #### [address] [address] Glucose [Mass/Vol] 297 mg/dL High 74 - 99 [facility] Comment on above: Performed By: #### C MP #### [address] [address] HCO3 (Bld) [Moles/Vol] 23 mmol/L Normal 21 - 32 [facility] Comment on above: Performed By: #### C MP #### [address] [address] Potassium [Moles/Vol] 3.9 mmol/L Normal 3.5 - 5.3 [facility] Comment on above: Performed By: #### C MP #### [address] [address] Protein [Mass/Vol] 6.8 g/dL Normal 6.4 - 8.2 [facility] Comment on above: Performed By: #### C MP #### [address] [address] Sodium [Moles/Vol] 136 mmol/L Normal 136 - 145 [facility] Comment on above: Performed By: #### C MP #### [address] [address] Urea nitrogen [Mass/Vol] 13 mg/dL Normal 6 - 23 [facility] Comment on above: Performed By: #### C MP #### [address] [address] [address] ABDOMEN AND PELVIS WO CON TRASTon 06-10-2021 CT ABDOMEN AND PELVIS WO CONTRAST Patient Name: GISEL CARLTON STUDY: CT ABDOMEN AND PELVIS WO CONTRAST; 06/10/2021 3:14 am INDICATION: Right flank pain . COMPARISON: 10/24/2020 ACCESSION NUMBER(S): [id number] ORDERING CLINICIAN: RICKEY CASTLE TECHNIQUE: Axial CT [...] hydronephrosis. 3. Borderline hepatomegaly. Electronically signed by: DO Andrés REID [facility] Provider Note - ED v3on 05-29 Provider [...] chart was dictated with the use of [employer] software within the framework of the current [...] Type: Drug R (more content not included)... [facility] Risk Screen - Adult Emergenc yon 06-10-2021 Risk Screen - Adult Emergency Preferred Language: Preferred Language: Preferred Language for Discussing Health Care (patient/designee)Burkinan Advanced Directives: Advance Directive/DNRno Family Violence Adult: [...] instruction; written material Cultural Considerationsnone Developmental Considerationsnone Hinduism Considerationsnone Learning Assessment (Other Learner): Learning Assessment (Other Learner): Other learner availableno Pressure Injury/TB/Substance: Pressure Injury: Do you have a coughno Smoking Statusnever smoker Alcohol Usedenies Drug Usedenies Drug 2 Usedenies Admission Risk Screen: Significant IndicatorsComplete CAGE: CAGE: Is this an injured patient at a Tra[place] Center [place]/[place]): no Electronic Signatures: Juana Xie (RN) (Signed 10-Jun-2021 02:35) Authored: Preferred Language, Advanced Directives, Family Violence Adult, Learning Assessment (Patient), Learning Assessment (Other Learner), Pressure Injury/TB/Substance, Pressure Injury, CAGE Last Updated: 10-Jun-2021 02:35 by Juana Xie (SHALOM) [facility] Triage - EDon 06-10-2021 Triage - ED Quick Triage: Are You no Have You Given In The Last 6 Weeksno Are You Currently Breastfeedingno The patient and/or guardian verbally acknowledges placement for services into the following (when Urgent Care Service hours are operating):emergency department Chart Review: PRIMARY ASSESSMENT GISEL CARLTON's primary [...] Accompanied By: self Language: Spoken Language Preferred: Burkinan Reading Language Preferred: Burkinan Senior Support Engineer Requested: no parts interpreter was requested MDRO: History of MDRO: no [...] BMI (kg/m2): 34.561 Calculated BSA (m2) 2.17 Mariaelena Coma Scale: Best Eye Response: (E4) spontaneous Best Motor Response: (M6) obeys commands Best Verbal Response: (V5) oriented [place] Score: 15 Cough lasting greater than 3 weeks: no Patient immunocompromised related to: N/A Allergies: yes 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 CELLS 1 /HPF Normal [facility] Comment on above: Performed By: #### U AMIC #### [place] [address] WBC 73 /HPF Abnormal 0-5 [facility] Comment on above: Performed By: #### U AMIC #### [place] [address] URINALYSIS WITH CULTURE IF I NDICATEDon 06-10-2021 Appearance (U) CLEAR Normal CLEAR [facility] Comment on above: Performed By: #### U ARFX #### [place] [address] Bilirubin Ql (U) Negative Normal NEGATIVE [facility] Comment on above: Performed By: #### U ARFX #### [place] [address] Color (U) Yellow Normal STRAW,YELL OW [facility] Comment on above: Performed By: #### U ARFX #### [place] [address] Glucose Ql (U) >=500(3+) Abnormal NEGATIVE [facility] Comment on above: Performed By: #### U ARFX #### [place] [address] Hemoglobin Ql (U) LARGE(3+) Abnormal NEGATIVE [facility] Comment on above: Performed By: #### U ARFX #### [place] [address] Ketones Ql (U) Negative Normal NEGATIVE [facility] Comment on above: Performed By: #### U ARFX #### [place] [address] Leukocyte esterase Test strip Ql (U) Negative Normal NEGATIVE [facility] Comment on above: Performed By: #### U ARFX #### [place] [address] Nitrite Ql (U) Negative Normal NEGATIVE [facility] Comment on above: Performed By: #### U ARFX #### [place] [address] pH (U) 5.0 [pH] Normal 5.0 - 8.0 [facility] Comment on above: Performed By: #### U ARFX #### [place] [address] Protein Ql (U) Negative Normal NEGATIVE [facility] Comment on above: Performed By: #### U ARFX #### [place] [address] Specific gravity (U) [Rel density] 1.014 Normal 1.005 - 1.035 [facility] Comment on above: Performed By: #### U ARFX #### [address] [address] Urobilinogen (U) [Mass/Vol] mg/dL Normal 0.0 - 1.9 [facility] Comment on above: Performed By: #### U ARFX #### [address] [address] URINE CULTURE,BACTERIALon URINE CULTURE,BACTERIAL PATIENT: GISEL CARLTON LOCATION: [facility] [employer]#: [id number] : 75 AGE: SEX: F ORDERED BY: RICKEY CASTLE SOURCE: URINE COLLECTED: 06/10/21 02:44 ANTIBIOTICS AT RASHEEDA.: RECEIVED : 06/10/21 13:01 SITE: R E S U L T S URINE CULTURE,BACTERIAL FINAL 06/11/21 09:01 NO SIGNIFICANT GROWTH. Normal [facility] Comment on above: Performed By: #### U RINC #### [facility] [address] [place] [address] CT KIDNEY STONEon 05-28-2021 CT KIDNEY STONE [...] a 2 mm nonobstructing calculus in the [id number] pole of the right kidney. Possible punctate [...] Gallbladder, uterus, and ovaries are surgically absent. RPS/hff Workstation ID: [id number] Dictated by: RICKEY ESPINOSA on ThuMay 28, 2021 5:22:26 AM EST Transcribed by: GELY STRICKLAND on ThuMay 28, 2021 5:27:00 AM EST Finalized by: RICKEY ESPINOSA on ThuMay 28, 2021 5:49:51 AM EST Normal [facility] Comment on above: Order Comment: Injur y/Trauma or Illness?:Illness/Other How long have you had these symptoms (acute/chronic)?:Acute Reason for exam?:LLQ pain, left fank pain Type of Exam?:Initial Additional signs and symptoms?: CBC Auto DifferentialOrdered By: Yanely Coyle on 04-15-2021 Basophils (Bld) [#/Vol] 0.1 10*3/uL 0.0 - 0.2 K/uL [employer] Phone: Basophils/100 WBC (Bld) 0.9 % [employer] Phone: Eosinophils (Bld) [#/Vol] 0.1 10*3/uL 0.0 - 0.7 K/uL [employer] Phone: Eosinophils/100 WBC (Bld) 1.6 % [employer] Phone: Hematocrit (Bld) [Volume fraction] 45.1 % 37.0 - 47.0 % [employer] Phone: Hemoglobin.gastrointes tinal spec 1 Ql (Stl) 15.4 g/dL 12.0 - 16.0 g/dL [employer] Phone: Lymphocytes (Bld) [#/Vol] 2.3 10*3/uL 1.0 - 4.8 K/uL [employer] Phone: Lymphocytes/100 WBC (Bld) 34.4 % [employer] Phone: MCH (RBC) [Entitic mass] 28.5 pg 27.0 - 31.3 pg [employer] Phone: MCHC (RBC) [Mass/Vol] 34.1 % 33.0 - 37.0 % [employer] Phone: MCV (RBC) [Entitic vol] 83.8 fL 82.0 - 100.0 fL [employer] Phone: Monocytes (Bld) [#/Vol] 0.4 10*3/uL 0.2 - 0.8 K/uL [employer] Phone: Monocytes/100 WBC (Bld) 6.4 % [employer] Phone: Neutrophils Absolute 3.7 K/uL 1.4 - 6 .5 K/uL [employer] Phone: Neutrophils/100 WBC (Bld) 56.7 % [employer] Phone: Platelet distribution width (Bld) [Ratio] 14.3 % 11.5 - 14.5 % [employer] Phone: Platelets (Bld) [#/Vol] 283 10*3/uL 130 - 400 K/uL [employer] Phone: RBC (Bld) [#/Vol] 5.39 10*6/uL [employer] Phone: WBC (Bld) [#/Vol] 6.6 10*3/uL 4.8 - 10.8 K/uL [employer] Phone: [employer] Phone: Comprehensive Metabolic Pane lOrdered By: Yanely Coyle on 04-15-2021 Albumin [Mass/Vol] 5 g/dL High 3.5 - 4.6 g/dL [facility] Work Phone: ALP (Bld) [Catalytic activity/Vol] 96 U/L 40 - 130 U/L [facility] [employer] Work Phone: ALT [Catalytic activity/Vol] 16 U/L 0 - 33 U/L [facility] Work Phone: Anion gap [Moles/Vol] 14 mmol/L [facility] [employer] Work Phone: AST [Catalytic activity/Vol] 14 U/L 0 - 35 U/L [facility] [employer] Phone: Bilirubin [Mass/Vol] 0.3 mg/dL 0.2 - 0 .7 mg/dL [facility] Phone: Calcium [Mass/Vol] 10.5 mg/dL High 8.5 - 9.9 mg/dL [facility] Work Phone: Chloride [Moles/Vol] 102 mmol/L [facility] [employer] Work Phone: CO2 [Moles/Vol] 23 mmol/L [facility] Work Phone: Creatinine [Mass/Vol] 0.51 mg/dL 0.50 - 0.90 mg/dL [facility] Work Phone: Free PSA/Total PSA [Mass fraction] 7.9 g/dL 6.3 - 8.0 g/dL [facility] Work Phone: GFR >60.0 >60 [employer] Work Phone: Comment on above: >60 mL/min/1.73m2 EG FR, calc. for ages 18 and older using the MDRD formula (not corrected for weight), is valid for stable renal function. GFR Non- >60.0 >60 [employer] Work Phone: Comment on above: >60 mL/min/1.73m2 EG FR, calc. for ages 18 and older using the MDRD formula (not corrected for weight), is valid for stable renal function. Globulin (S) [Mass/Vol] 2.9 g/dL 2.3 - 3.5 g/dL [employer] Phone: Glucose [Mass/Vol] 231 mg/dL High 70 - 99 mg/dL [facility] Work Phone: Interpretation and review of laboratory results Abnormal [employer] Work Phone: Potassium [Moles/Vol] 4.1 mmol/L [facility] [employer] Work Phone: Sodium [Moles/Vol] 139 mmol/L [facility] Work Phone: Urea nitrogen (BldV) [Mass/Vol] 16 mg/dL 6 - 20 mg/dL [facility] Work Phone: [employer] Work Phone: Microscopic UrinalysisOrdere d By: Sena Dacosta on 04-15-2021 Bacteria, UA Negative Negative /HPF [employer] Work Phone: Epithelial Cells, UA 3-5 [employer] Work Phone: Hyaline Casts, UA 1-3 [facility] Work Phone: Interpretation and review of laboratory results Abnormal [employer] Work Phone: RBC (U) [#/Vol] /uL [place] [facility] [facility] Work Phone: WBC, UA 20-50 Abnormal [employer] Work Phone: [employer] Work Phone: UrinalysisOrdered By: Yanely Coyle on 04-15-2021 Bilirubin Urine Negative Negative [employer] [facility] Work Phone: Blood, Urine LARGE Abnormal Negative [employer] Work Phone: Clarity, UA CLOUDY Abnormal Clear [employer] Work Phone: Color, UA ORANGE Abnormal Straw/Mower ow [employer] Work Phone: Glucose, Ur >=1000 Abnormal Negative mg/dL [employer] Work Phone: Interpretation and review of laboratory results Abnormal [employer] Work Phone: Ketones Ql (U) TRACE Abnormal Negative mg/dL [employer] Work Phone: Leukocyte esterase Test strip Ql (U) SMALL Abnormal Negative [employer] Work Phone: Nitrite, Urine Negative Negative [employer] Work Phone: pH, UA 5.0 [employer] Work Phone: Protein, UA Negative Negative mg/dL [employer] Work Phone: Specific Dent, UA 1.036 [employer] Work Phone: Urobilinogen, Urine 0.2 <2.0 E.U./dL [employer] Work Phone: [employer] Work Phone: Cystoscopy, Remove Calculus, SimpleOrdered By: [...] to verify the correct patient, procedure, equipment, product support sales representative and site/side marked as required. Timeout performed [...] in 6 months with a KUB x-ray. [facility] Bacteria identified Aer cx N om (Unsp spec)Ordered By: Fei Jones on 02-02-2021 [facility] Glucose (Bld) [Mass/Vol]Orde red By: Generic [employer] Svetlana on 02-02-2021 Glucose [Mass/Vol] 265 mg/dL High 65 - 99 mg/dL [facility] Interpretation and review of laboratory results Abnormal [facility] Glucose [Mass/Vol] 233 mg/dL High 65 - 99 mg/dL [facility] Interpretation and review of laboratory results Abnormal [facility] Urine Aerobic CultureOrdered By: Fei Jones on 02-02-2021 Bacteria identified Aer cx Nom (Unsp spec) No Growth (<1,000 CFU/mL) [facility] Basic metabolic 2000 panelOr dered By: Rufina Eugene on 02-01-2021 Anion gap [Moles/Vol] 14 mmol/L 10 - 2 0 mmol/L [facility] Calcium [Mass/Vol] 9.1 mg/dL 8.4 - 10. 2 mg/dL [facility] Chloride [Moles/Vol] 105 mmol/L 98 - 10 8 mmol/L [facility] Creatinine [Mass/Vol] 0.49 mg/dL 0.40 - 1.10 [facility] GFR/1.73 sq M.predicted CKD-EPI (S/P/Bld) [Vol rate/Area] 118 >=60 mL/min/1.7 3 m2 [facility] Glucose [Mass/Vol] 263 mg/dL High 65 - 99 mg/dL [facility] HCO3 [Moles/Vol] 24 mmol/L 21 - 32 mmol/L [facility] Interpretation and review of laboratory results Abnormal [facility] Potassium [Moles/Vol] 3.7 mmol/L 3.5 - 5.1 mmol/L [facility] Sodium [Moles/Vol] 139 mmol/L 135 - 145 mmol/L [facility] Urea nitrogen [Mass/Vol] 13 mg/dL 8 - 25 mg/dL [facility] Urea nitrogen/Creatinine [Mass ratio] 26.5 mg/mg High [facility] The eGFR should be u sed for monitoring renal function only and not for medication dosing. [facility] CBC panel Auto (Bld)Ordered By: Rufina Eugene on 02-01-2021 Erythrocyte distribution width (RBC) [Entitic vol] 13.5 % 11.6 - 14.8 % [facility] Hematocrit (Bld) [Volume fraction] 37.0 % 36.0 - 46.0 % [facility] Hemoglobin (Bld) [Mass/Vol] 12.0 g/dL 12.0 - 16.0 g/dL [facility] MCH (RBC) [Entitic mass] 27.6 pg 26.0 - 34.0 pg [facility] MCHC (RBC) [Mass/Vol] 32.4 g/dL 31.0 - 37.0 g/dL [facility] MCV (RBC) [Entitic vol] 85.1 fL 80.0 - 100.0 fL [facility] Nucleated RBC (Bld) [#/Vol] 0.00 10*3/uL [facility] Nucleated RBC/100 WBC (Bld) [Ratio] 0.0 % [facility] Platelet mean volume (Bld) [Entitic vol] 9.8 fL 9.4 - 12.4 fL [facility] Platelets (Bld) [#/Vol] 211 10*3/uL [facility] RBC (Bld) [#/Vol] 4.35 10*6/uL [facility] WBC (Bld) [#/Vol] 5.18 10*3/uL [facility] CT KIDNEY STONEOrdered By: Judi Jones on 02-01-2021 Right nephroureteral stent appears in appropriate position. No ureteral stones or hydronephrosis. A few punctate nonobstructing bilateral kidney stones. Prior cholecystectomy and hysterectomy. Normal appendix. Moderate colonic stool burden. Workstation ID: [id number] [facility] EXAMINATION: CT KIDNEY STONE HISTORY: ORDERING SYSTEM [...] acute osseous abnormality. No suspicious osseous lesions. [facility] Interface, Rad In Fu ji Speechq - 02/01/2021 1:03 [...] Moderate colonic stool burden. Workstation ID: [id number] [facility] Glucose (Bld) [Mass/Vol]Orde red By: Dougie [facility] Svetlana on 02-01-2021 Glucose [Mass/Vol] 290 mg/dL High 65 - 99 mg/dL [facility] Interpretation and review of laboratory results Abnormal [facility] Glucose [Mass/Vol] 140 mg/dL High 65 - 99 mg/dL [facility] Interpretation and review of laboratory results Abnormal [facility] Glucose [Mass/Vol] 189 mg/dL High 65 - 99 mg/dL [facility] Interpretation and review of laboratory results Abnormal [facility] Glucose [Mass/Vol] 220 mg/dL High 65 - 99 mg/dL [facility] Interpretation and review of laboratory results Abnormal [facility] Glucose [Mass/Vol] 289 mg/dL High 65 - 99 mg/dL [facility] Interpretation and review of laboratory results Abnormal [facility] INR Coag (PPP) [Relative debbie e]Ordered By: Rufina Eugene on 02-01-2021 Interpretation and review of laboratory results Normal [facility] PT Coag (PPP) [Time] 12.9 s [facility] During the induction phase of oral anticoagulation, the INR may not reflect the anticoagulation status of the patient. Therapeutic ranges for INR's are: Most clinical situations: INR 2.0-3.0 Mechanical Prosthetic Valve: INR 2.5-3.5 Critical: INR >5.0 [facility] PT/INROrdered By: Rufina Eugene on 02-01-2021 INR Coag (PPP) [Relative time] 1.0 {INR} [facility] SARS-CoV-2 (COVID-19) RdRp g edith JENNIFER+probe Ql (Resp)Ordered By: Sena White on 02-01-2021 Interpretation and review of laboratory results Normal [facility] SARS-CoV-2 (COVID-19) RNA JENNIFER+probe Ql (Resp) Not detected Not Detected [facility] This test was perfor med under the [...] the following links: For Healthcare Providers: https://www.fda.gov/media /290409/download For Patients: https://www.fda.gov/media /652477/download [facility] Basic metabolic 1998 panelOr dered By: Sena White on 01-31-2021 Anion gap [Moles/Vol] 17 mmol/L 10 - 2 0 mmol/L [facility] Chloride [Moles/Vol] 102 mmol/L 98 - 10 8 mmol/L [facility] Creatinine [Mass/Vol] 0.59 mg/dL 0.40 - 1.10 [facility] GFR/1.73 sq M.predicted CKD-EPI (S/P/Bld) [Vol rate/Area] 111 >=60 mL/min/1.7 3 m2 [facility] Glucose [Mass/Vol] 346 mg/dL High 65 - 99 mg/dL [facility] HCO3 [Moles/Vol] 21 mmol/L 21 - 32 mmol/L [facility] Interpretation and review of laboratory results Abnormal [facility] Potassium [Moles/Vol] 3.8 mmol/L 3.5 - 5.1 mmol/L [facility] Sodium [Moles/Vol] 136 mmol/L 135 - 145 mmol/L [facility] Urea nitrogen [Mass/Vol] 15 mg/dL 8 - 25 mg/dL [facility] Urea nitrogen/Creatinine [Mass ratio] 25.4 mg/mg High [facility] The eGFR should be u sed for monitoring renal function only and not for medication dosing. [facility] CBC WITH AUTO DIFFERENTIALOr dered By: Sena White on 01-31-2021 Basophils (Bld) [#/Vol] 0.04 10*3/uL [facility] Basophils/100 WBC (Bld) 0.7 % [facility] Eosinophils (Bld) [#/Vol] 0.11 10*3/uL [facility] Eosinophils/100 WBC (Bld) 1.8 % [facility] Erythrocyte distribution width (RBC) [Entitic vol] 13.2 % 11.6 - 14.8 % [facility] Hematocrit (Bld) [Volume fraction] 41.3 % 36.0 - 46.0 % [facility] Hemoglobin (Bld) [Mass/Vol] 13.3 g/dL 12.0 - 16.0 g/dL [facility] Immature granulocytes (Bld) [#/Vol] 0.02 10*3/uL [facility] Immature granulocytes/100 WBC (Bld) 0.30 % [facility] Comment on above: The IG parameter is the percentage of metamyelocytes, myelocytes and promyelocytes. An immature granulocyte count (IG) of 1% or more suggests the possibility of infection, an IG count of 3% is very likely related to an infection. Lymphocytes (Bld) [#/Vol] 2.23 10*3/uL [facility] Lymphocytes/100 WBC (Bld) 36.9 % [facility] MCH (RBC) [Entitic mass] 27.8 pg 26.0 - 34.0 pg [facility] MCHC (RBC) [Mass/Vol] 32.2 g/dL 31.0 - 37.0 g/dL [facility] MCV (RBC) [Entitic vol] 86.2 fL 80.0 - 100.0 fL [facility] Monocytes (Bld) [#/Vol] 0.56 10*3/uL [facility] Monocytes/100 WBC (Bld) 9.3 % [facility] Neutrophils (Bld) [#/Vol] 3.08 10*3/uL [facility] Neutrophils/100 WBC (Bld) 51.0 % [facility] Nucleated RBC (Bld) [#/Vol] 0.00 10*3/uL [facility] Nucleated RBC/100 WBC (Bld) [Ratio] 0.0 % [facility] Platelet mean volume (Bld) [Entitic vol] 9.5 fL 9.4 - 12.4 fL [facility] Platelets (Bld) [#/Vol] 213 10*3/uL [facility] RBC (Bld) [#/Vol] 4.79 10*6/uL [facility] WBC (Bld) [#/Vol] 6.04 10*3/uL [facility] Gold TopOrdered By: Triage E mergency on 01-31-2021 [facility] No Panel InformationOrdered By: Triage Emergency on 01-31-2021 [facility] Extra Tube Hold for add-ons. [facility] Comment on above: Auto resulted. URINALYSISOrdered By: Jaswinder White on 01-31-2021 Bacteria Auto Ql (U) Few Abnormal None Se en /hpf [facility] Clarity Refractometry automated (U) Cloudy Abnormal Clear [facility] Color (U) Linda Abnormal Colorless, Yellow [facility] Glucose Auto test strip (U) [Mass/Vol] >=500 Abnormal Negative mg/dL [facility] Ketones (U) [Mass/Vol] Negative Negat isabella mg/dL [facility] Leukocyte esterase Auto test strip Ql (U) Moderate Abnormal Negative [facility] h pH (U) 5.5 [pH] [facility] Specific gravity (U) [Rel density] 1.029 High [facility] UrinalysisOrdered By: Jaswinder White on 01-31-2021 Bilirubin Ql (U) Negative Negative [facility] Epithelial cells.squamous Auto (Urine sed) [#/Area] 7 High [facility] Hemoglobin Auto test strip Ql (U) Large Abnormal Negative [facility] Interpretation and review of laboratory results Abnormal [facility] Nitrite Auto test strip Ql (U) Negative Negative [facility] Protein (U) [Mass/Vol] 30 mg/dL Abnormal Negat isabella mg/dL [facility] Comment on above: False positive resul ts may occur in urines with large amounts of hemoglobin, pH greater than 8.0, contrast medium, or disinfectants including ammonium compounds. RBC Auto (Urine sed) [#/Area] >180 High [facility] Urobilinogen (U) [Mass/Vol] mg/dL <2.0 mg/dL [facility] WBC Auto (Urine sed) [#/Area] 65 High [facility] Microscopic examinat ion is performed on all urinalysis samples and only positive findings are reported. The test for blood on the chemical analytic portion of urinalysis may also be positive due to hemoglobinuria and myoglobinuria and if red blood cells are present they are quantified by microscopic examination. [facility] XR CHEST AP PORTABLEOrdered By: Harry Flood on 01-14-2021 IMPRESSION: No acute cardiopulmonary abnormalities. [facility] EXAM: XR CHEST AP PORTABLE 01/14/2021 10:09 PM EDT HISTORY: cough COMPARISON: None. TECHNIQUE: AP erect view of the chest. FINDINGS: Lungs are clear. The cardiomediastinal configuration is within normal limits. No acute bony abnormalities. [facility] User, Interfaces - 01/14/2021 10:58 PM EDT EXAM: XR CHEST AP PORTABLE 01/14/2021 10:09 PM EDT HISTORY: cough COMPARISON: None. TECHNIQUE: AP erect view of the chest. FINDINGS: Lungs are clear. The cardiomediastinal configuration is within normal limits. No acute bony abnormalities. IMPRESSION IMPRESSION: No acute cardiopulmonary abnormalities. [facility] GLUCOSE BY METERon 1 Glucose [Mass/Vol] 299 mg/dL High 65-110 [facility] Comment on above: Performed By: #### G LUM #### [facility] [address] [place] [address] [employer] - Patricia YEPEZ [id number] URINALYSIS with reflex to CU LTUREon 12-27-2020 Bacteria LM.HPF (Urine sed) [#/Area] Negative Normal TRACE [facility] Comment on above: Performed By: #### U AR #### [facility] [address] [place] [address] [employer] - Patricia YEPEZ [id number] Bilirubin Ql (U) Negative Normal NEGATIVE [facility] Comment on above: Performed By: #### U AR #### [facility] [address] [facility]. [place] [address] [employer]ician [employer] - [facility] [id number] Clarity (U) Slightly Cloudy Abnormal CLEAR [facility] Comment on above: Performed By: #### U AR #### [facility] [address] [facility]. [place] [address] [employer] - [place] [id number] Color (U) YELLOW Normal YELLOW [facility] Comment on above: Performed By: #### U AR #### [facility] [address] [place] [address]. [place] [address] [employer] - [facility] [id number] Glucose Ql (U) 4+ Abnormal NEGATIVE [facility] Comment on above: Performed By: #### U AR #### [address] [place] [address] [employer] - [facility] [id number] Hemoglobin Ql (U) 3+ Abnormal NEGATIVE [facility] Comment on above: Performed By: #### U AR #### [place] [address] [employer] - [facility] [id number] HMICRO AUTOMATED MICROSCOPIC Normal [facility] Comment on above: Performed By: #### U AR #### [address] [place] [address] [employer] - [facility] [id number] Hyaline casts (Urine sed) [#/Area] 0-8 Normal 0-8 [facility] Comment on above: Performed By: #### U AR #### [address] [place] [address] [employer] - [place] [id number] KETONE Negative Normal NEGATIVE [facility] Comment on above: Performed By: #### U AR #### [address] [place] [address] [employer] Technician [employer]ic - Patricia SÁNCHEZIA [id number] Leukocyte esterase Test strip Ql (U) TRACE Normal TRACE [facility] Comment on above: Performed By: #### U AR #### [facility] [address] [place] [address] [employer] - Patricia SÁNCHEZIA [id number] Nitrite Ql (U) Negative Normal NEGATIVE [facility] Comment on above: Performed By: #### U AR #### [facility] [address] [place] [address] [employer]ic - Patricia SÁNCHEZIA [id number] pH (U) 7.0 [pH] Normal 5.5-7.5 [facility] Comment on above: Performed By: #### U AR #### [address] [place] [address] [employer]ic - Patricia SÁNCHEZIA [id number] Protein Ql (U) Negative Normal NEGATIVE [facility] Comment on above: Performed By: #### U AR #### [address] [place] [address] [employer]ician [employer]ic - Patricia SÁNCHEZIA [id number] RBC LM.HPF (Urine sed) [#/Area] /[HPF] Abnormal 0-4 [facility] Comment on above: Performed By: #### U AR #### [address] [place] [address] [employer]ic - Patricia SÁNCHEZIA [id number] Specific gravity (U) [Rel density] 1.041 High 1.010-1.03 5 [facility] Comment on above: Performed By: #### U AR #### [facility] [address] [place] [address]. [place] [address] [employer] - Patricia SÁNCHEZIA [id number] SQUAMOUS EPITHELIALS >15 Abnormal 0-5 [facility] Comment on above: Performed By: #### U AR #### [facility] [address] [facility]. [place] [address] [employer] Technician [employer]ic - Patricia SÁNCHEZIA [id number] Urobilinogen Qn (U) 1.0 {Diaz'U}/dL Normal <=1.0 [facility] Comment on above: Result Comment: 1.0 E.U./dL Performed By: #### U AR #### [facility] [address] [place], [place] [address] [employer]ician [employer]ic - Patircia YEPEZ [id number] WBC LM.HPF (Urine sed) [#/Area] 0-5 Normal 0-5 [facility] Comment on above: Performed By: #### U AR #### [facility] [address] [place], [place] [address] [employer] Technician Mechanic - Patricia YEPEZ [id number] EMERGENCY REPORTon [address] EMERGENCY RE[address] [facility] EMERGENCY ROOM REPORT NAME ACCOUNT SEX AGE ADMIT DISCHARGE PT MED. RECORD# NUMBER DATE DATE TYPE GISEL CARLTON [id number] F 45 12/04/20 12/04/20 3 BERTHA [id number] ROOM: ER DATE OF : 1975 DICTATING [...] diarrhea or urinary symptoms. PAST MEDICAL HISTORY: [id number] diabetes and GERD. PAST SURGICAL HISTORY: Gallbladder, [...] ordered a CT scan on her. The site damage prevention technician came over and said she was [...] 2 GISEL CARLTON Emergency Room Report GISEL CARLTON : 1975 across the entire area of [place]. When I questioned her about this, she [...] Shayna Ochoa DO 12/06/20 08:09 JOB #: [id number] Transcribed By: deneen 12/06/20 12:15 Electronically signed by: E-Sign: SHAYNA OCHOA MD 12/16/20 12:47 Page 2 of 2 GISEL CARLTON Emergency Room Report Normal [facility] CBC + DIFFon 12-04-2020 Baso # 0.10 x10EE3/UL Normal 0.00 - 0.10 [facility] Comment on above: Performed By: #### 2 40052 #### [facility],[address] [place], [place] [id number] Basophils/100 WBC (Bld) 1.2 % Normal 0.0 - 2.0 [facility] Comment on above: Performed By: #### 2 86629 #### [facility],[address] [place] [address] CBC + DIFF Normal [facility] Comment on above: Result Comment: CBC- COMPLETE BLOOD COUNT Performed By: #### 2 15687 #### [facility],[address] [place] [address] EO # 0.10 x10EE3/UL Normal 0.00 - 0.50 [facility] Comment on above: Performed By: #### 2 74515 #### [facility],[address] [place] [address] Eosinophils/100 WBC (Bld) 1.9 % Normal 0.0 - 7.0 [facility] Comment on above: Performed By: #### 2 69092 #### [facility],[address] [place] [address] Erythrocyte distribution width (RBC) [Ratio] 14.3 % Normal 12.0 - 15.6 [facility] Comment on above: Performed By: #### 2 55753 #### [facility],[address] [place] [address] Hematocrit (Bld) [Volume fraction] 39.1 % Normal 34.0 - 46.0 [facility] Comment on above: Performed By: #### 2 08649 #### [facility],[address] [place], [place] [phone] Hemoglobin (Bld) [Mass/Vol] 13.3 g/dL Normal 12.0 - 16.0 [facility] Comment on above: Performed By: #### 2 78482 #### [facility],[address] [place] [address] Lymph # 2.00 x10EE3/UL Normal 0.80 - 2.80 [facility] Comment on above: Performed By: #### 2 55761 #### [facility],[address] [place] [address] Lymphocytes/100 WBC (Bld) 35.7 % Normal 20.0 - 45.0 [facility] Comment on above: Performed By: #### 2 86253 #### [facility],[address] [place] [address] MANUAL DIFF N/A Normal [facility] Comment on above: Performed By: #### 2 61733 #### [facility],[address] [place] [address] MCH (RBC) [Entitic mass] 28 pg Normal 27 - 33 [facility] Comment on above: Performed By: #### 2 25786 #### [facility],[address] [place] [address] MCHC 34 X10 3 Normal 32 - 36 [facility] Comment on above: Performed By: #### 2 05233 #### [facility],[address] [place], [place] [phone] MCV (RBC) [Entitic vol] 82 fL Normal 80 - 99 [facility] Comment on above: Performed By: #### 2 12466 #### [facility],[address] [place] [address] [place] # 0.50 x10EE3/UL Normal 0.20 - 1.00 [facility] Comment on above: Performed By: #### 2 71970 #### [facility],[address] [place], [place] [phone] MONOS % 7.9 % Normal 0.0 - 10.0 [facility] Comment on above: Performed By: #### 2 78051 #### [facility],[address] [place] [address] Morphology Clint (Bld) [Interp] N/A Normal [facility] Comment on above: Result Comment: {CD] Performed By: #### 2 75709 #### [facility],[address] [place] [address] Neut # 3.00 x10EE3/UL Normal 1.50 - 7.10 [facility] Comment on above: Performed By: #### 2 33070 #### [facility],[address] [place] [address] Neutrophils/100 WBC (Bld) 53.3 % Normal 46.0 - 76.0 [facility] Comment on above: Performed By: #### 2 89692 #### [facility],[address] [place] [address] 19589 PLATELET 253 x10EE3/UL Normal 150 - 450 [facility] Comment on above: Performed By: #### 2 98970 #### [facility],[address] [place] [address]169 Platelet mean volume (Bld) [Entitic vol] 7.4 fL Normal 6.6 - 10.5 [facility] Comment on above: Result Comment: AUTO MATED DIFFERENTIAL Performed By: #### 2 62236 #### [facility],[address] [place] [address] 33026 RBC 4.77 x 10EE6/UL Normal 4.10 - 5.30 [facility] Comment on above: Performed By: #### 2 19524 #### [facility],[address] [place] [address]23 WBC 5.7 x 10EE3/UL Normal 4.5 - 10.8 [facility] Comment on above: Performed By: #### 2 33745 #### [facility],[address] [place] [address] 37710 CMP with eGFRon 12-04-2020 AGE 45 years Normal [facility] Comment on above: Performed By: #### 2 38199 #### [facility],[address] [place] [address] 83202 Albumin [Mass/Vol] 3.9 g/dL Normal 3.4 - 5.0 [facility] Comment on above: Performed By: #### 2 05567 #### [facility],[address] [place] [address]77 Albumin/Globulin [Mass ratio] 0.9 {ratio} Normal 0.9 - 1.6 [facility] Comment on above: Performed By: #### 2 73805 #### [facility],[address] [place] [address] 39642 ALK PHOS 82 U/L Normal 46 - 116 [facility] Comment on above: Performed By: #### 2 73778 #### [facility],[address] [place] [address] 44702 ALT [Catalytic activity/Vol] 34 U/L Normal 14 - 59 [facility] Comment on above: Performed By: #### 2 56022 #### [facility],[address] [place] [address]27 Anion gap [Moles/Vol] 15 mmol/L Normal 10 - 20 [facility] Comment on above: Performed By: #### 2 44683 #### [facility],[address] [place] [address]6300 AST [Catalytic activity/Vol] 30 U/L Normal 13 - 39 [facility] Comment on above: Performed By: #### 2 84289 #### [facility],[address] [place] [address] 52093 B/C RATIO 17 ratio Normal 0 - 30 [facility] Comment on above: Performed By: #### 2 39616 #### [facility],[address] [place] [address]390 Bilirubin [Mass/Vol] 0.6 mg/dL Normal 0.2 - 1.0 [facility] Comment on above: Performed By: #### 2 73731 #### [facility],[address] [place] [address]757 Calcium [Mass/Vol] 9.7 mg/dL Normal 8.5 - 10.1 [facility] Comment on above: Performed By: #### 2 10467 #### [facility],[address] [place] [address]8887 Chloride [Moles/Vol] 102 mmol/L Normal 98 - 107 [facility] Comment on above: Performed By: #### 2 01713 #### [facility],[address] [place] [address] 90772 CMP with eGFR Normal [facility] Comment on above: Result Comment: COMP REHENSIVE METABOLIC PANEL Performed By: #### 2 59932 #### [facility],[address] [place] [address] 90306 CO2 [Moles/Vol] 27.9 mmol/L Normal 21.0 - 32.0 [facility] Comment on above: Performed By: #### 2 84963 #### [facility],[address] [place] [address] Creatinine [Mass/Vol] 0.71 mg/dL Normal 0.55 - 1.02 [facility] Comment on above: Performed By: #### 2 59105 #### [facility],[address] [place] [address] 28840 GFR/1.73 sq M.predicted among non-blacks MDRD (S/P/Bld) [Vol rate/Area] mL/min/{1.73_m2} Normal 60 - 999 [facility] Comment on above: Performed By: #### 2 91245 #### [facility],[address] [place] [address] Result Comment: ACCO RDING TO THE NATIONAL KIDNEY DISEASE EDUCATION PROGRAM(NKDE), A NORMAL eGFR IS A VALUE GREATER THAN OR EQUAL TO 60 ML/MIN/1.73 SQ METERS. CHRONIC KIDNEY DISEASE: <60mL/MIN/1.73 SQ METERS KIDNEY FAILURE: <15mL/MIN/1.73 SQ METERS THIS TEST SHOULD ONLY BE USED FOR PATIENTS 18 YEARS OF AGE AND OLDER. Globulin (S) [Mass/Vol] 4.4 g/dL High 1.5 - 3.8 [facility] Comment on above: Performed By: #### 2 72170 #### [facility],[address] [place] [address]15 Glucose [Mass/Vol] 295 mg/dL High 74 - 106 [facility] Comment on above: Performed By: #### 2 60142 #### [address] [address] Potassium [Moles/Vol] 4.0 mmol/L Normal 3.5 - 5.1 [facility] Comment on above: Performed By: #### 2 67343 #### [facility],[address] [place] [address] 34049 Protein [Mass/Vol] 8.3 g/dL High 6.4 - 8.2 [facility] Comment on above: Performed By: #### 2 35748 #### [address] [address] Sodium [Moles/Vol] 141 mmol/L Normal 136 - 145 [facility] Comment on above: Performed By: #### 2 48452 #### [facility],[address] [place] [address]27 Urea nitrogen [Mass/Vol] 12 mg/dL Normal 7 - 18 [facility] Comment on above: Performed By: #### 2 53936 #### [address] [address] [address] KUB (KIDNEY STONE PROTOCO L)on 12-04-2020 CT KUB (KIDNEY STONE PROTOCOL) [place] [address] Patient: GISEL CARLTON Phone#: : 1975 Age: 45 Gender: F Pt. Type: ER Account: [id number] Location: 052 Ordering: DR. SHAYNA OCHOA Exam Date: 12/04/2020:46 Family Phys: Charge Code: [id number] Physician: Hernando Order #: [id number] DLP Dose#: 18.7 mGy PROCEDURE: CT ABDOMEN [...] 45 Gender: F Pt. Type: ER Account: [id number] Location: 052 Ordering: DR. SHAYNA OCHOA Exam Date: 12/04/202019:46 Family Phys: Charge Code: [id number] Physician: Hernando Order #: [id number] DLP Dose#: 18.7 mGy LUNG BASES: Normal. No visible pulmonary or pleural disease. OTHER: Negative. CONCLUSION: 1. Nonobstructing renal calculi are present. There is no evidence of hydronephrosis. Dictated by: Luisa Ruvalcaba MD on 12/05/2020 at 8:31 Approved by: Luisa Ruvalcaba MD on 12/05/2020 at 8:34 Normal [facility] LIPASEon 12-04-2020 Lipase [Catalytic activity/Vol] 216.0 U/L Normal 73.0 - 393 [facility] Comment on above: Performed By: #### 2 63172 #### [facility],[address] [place] [address] URINALYSISon 12-04-2020 Amorphous NONE Normal [facility] Comment on above: Performed By: #### 2 00427 #### [facility],[address] [place] [address] Bacteria 2+ Normal [facility] Comment on above: Performed By: #### 2 10172 #### [facility],[address] [place] [address] Bilirubin Ql (U) Negative Normal NORMAL: NEGATIVE [facility] Comment on above: Performed By: #### 2 70320 #### [facility],[address] [place] [address] Casts NONE Normal [facility] Comment on above: Performed By: #### 2 74270 #### [facility],[address] [place] [address] Clarity (U) clear Normal NORMAL: CLEAR [facility] Comment on above: Performed By: #### 2 73423 #### [facility],[address] [place] [address] Color (U) p.yel Normal NORMAL: YELLOW [facility] Comment on above: Performed By: #### 2 28312 #### [facility],[address] [place] [address] 12527 Crystals LM Nom (Urine sed) NONE Normal [facility] Comment on above: Performed By: #### 2 37066 #### [facility],[address] [place] [address] 80067 Epi Cells MODERATE Normal [facility] Comment on above: Performed By: #### 2 85233 #### [facility],[address] [place], [place] [phone] Glucose Ql (U) 1000 Abnormal NORMAL: NORMAL [facility] Comment on above: Performed By: #### 2 57964 #### [facility],[address] [place], [place] [phone] Hemoglobin Ql (U) 250 Abnormal NORMAL: NEGATIVE [facility] Comment on above: Performed By: #### 2 99660 #### [facility],[address] [place], [place] [phone] Ketone Negative Normal NORMAL: NEGATIVE [facility] Comment on above: Performed By: #### 2 24517 #### [facility],[address] [place] [address] 66926 Leukocytes 500 Abnormal NORMAL: NEGATIVE [facility] Comment on above: Performed By: #### 2 88403 #### [facility],[address] [place] [address] 77099 Mucous NONE Normal [facility] Comment on above: Performed By: #### 2 60128 #### [facility],[address] [place] [address] 93340 Nitrite Ql (U) Negative Normal NORMAL: NEGATIVE [facility] Comment on above: Performed By: #### 2 58627 #### [facility],[address] [place] [address] 66684 pH (U) 7 [pH] Normal NORMAL: 5.0-8.0 [facility] Comment on above: Performed By: #### 2 86310 #### [facility],[address] [place] [address] Protein Ql (U) 30 Abnormal NORMAL: NEGATIVE [facility] Comment on above: Performed By: #### 2 12488 #### [facility],[address] [place] [address] Rbc TNTC Normal 0-3/hpf [facility] Comment on above: Performed By: #### 2 89653 #### [facility],[address] [place] [address] Sp Dent 1.015 Normal NORMAL: 1.010-1.03 0 [facility] Comment on above: Performed By: #### 2 76953 #### [place] [address] Specimen Type UNSPECIFIED Normal [facility] Comment on above: Performed By: #### 2 97408 #### [facility],[address] [place] [address] Urinalysis dipstick W Reflex Microscopic panel (U) SEE BELOW Normal [facility] Comment on above: Result Comment: MICR OSCOPIC Performed By: #### 2 96671 #### [place] [address] Urobilinog 1 Abnormal NORMAL: NORMAL [facility] Comment on above: Performed By: #### 2 33574 #### [facility],[address] [place] [address] WBC (U) [#/Vol] /uL Normal 0-5/hpf [facility] Comment on above: Performed By: #### 2 00557 #### [place] [address] Yeast NONE Normal [facility] Comment on above: Performed By: #### 2 24453 #### [facility],[address] [place] [address] CBC Auto DifferentialOrdered By: Raj Manning on 11-25-2020 Basophils (Bld) [#/Vol] 0.0 10*3/uL 0.0 - 0.2 K/uL [employer] Phone: Basophils/100 WBC (Bld) 0.8 % [employer] Phone: Eosinophils (Bld) [#/Vol] 0.1 10*3/uL 0.0 - 0.7 K/uL [employer] Phone: Eosinophils/100 WBC (Bld) 1.8 % [employer] Phone: Hematocrit (Bld) [Volume fraction] 40.0 % 37.0 - 47.0 % [employer] Phone: Hemoglobin.gastrointes tinal spec 1 Ql (Stl) 13.4 g/dL 12.0 - 16.0 g/dL [employer] Phone: Lymphocytes (Bld) [#/Vol] 1.9 10*3/uL 1.0 - 4.8 K/uL [employer] Phone: Lymphocytes/100 WBC (Bld) 36.3 % [employer] Phone: MCH (RBC) [Entitic mass] 27.8 pg 27.0 - 31.3 pg [employer] Phone: MCHC (RBC) [Mass/Vol] 33.5 % 33.0 - 37.0 % [employer] Phone: MCV (RBC) [Entitic vol] 83.2 fL 82.0 - 100.0 fL [employer] Phone: Monocytes (Bld) [#/Vol] 0.4 10*3/uL 0.2 - 0.8 K/uL [employer] Phone: Monocytes/100 WBC (Bld) 8.0 % [employer] Phone: Neutrophils Absolute 2.7 K/uL 1.4 - 6 .5 K/uL [employer] Phone: Neutrophils/100 WBC (Bld) 53.1 % [employer] Phone: Platelet distribution width (Bld) [Ratio] 14.4 % 11.5 - 14.5 % [employer] Phone: Platelets (Bld) [#/Vol] 212 10*3/uL 130 - 400 K/uL [employer] Phone: RBC (Bld) [#/Vol] 4.81 10*6/uL [employer] Phone: WBC (Bld) [#/Vol] 5.2 10*3/uL 4.8 - 10.8 K/uL [employer] Phone: [employer] Phone: Comprehensive Metabolic Pane lOrdered By: Raj Manning on 11-25-2020 Albumin [Mass/Vol] 4.6 g/dL 3.5 - 4.6 g/dL [employer] Phone: ALP (Bld) [Catalytic activity/Vol] 76 U/L 40 - 130 U/L [employer] Phone: ALT [Catalytic activity/Vol] 21 U/L 0 - 33 U/L [employer] Phone: Anion gap [Moles/Vol] 10 mmol/L [facility] [employer] Phone: AST [Catalytic activity/Vol] 15 U/L 0 - 35 U/L [employer] Phone: Bilirubin [Mass/Vol] 0.4 mg/dL 0.2 - 0 .7 mg/dL [employer] Phone: Calcium [Mass/Vol] 9.7 mg/dL 8.5 - 9.9 mg/dL [employer] Phone: Chloride [Moles/Vol] 97 mmol/L [employer] Phone: CO2 [Moles/Vol] 27 mmol/L [employer] [facility] Work Phone: Creatinine [Mass/Vol] 0.56 mg/dL 0.50 - 0.90 mg/dL [facility] Work Phone: Free PSA/Total PSA [Mass fraction] 7.2 g/dL 6.3 - 8.0 g/dL [facility] Phone: GFR >60.0 >60 [facility] [employer] Work Phone: Comment on above: >60 mL/min/1.73m2 EG FR, calc. for ages 18 and older using the MDRD formula (not corrected for weight), is valid for stable renal function. GFR Non- >60.0 >60 [facility] Work Phone: Comment on above: >60 mL/min/1.73m2 EG FR, calc. for ages 18 and older using the MDRD formula (not corrected for weight), is valid for stable renal function. Globulin (S) [Mass/Vol] 2.6 g/dL 2.3 - 3.5 g/dL [facility] Phone: Glucose [Mass/Vol] 257 mg/dL High 70 - 99 mg/dL [facility] [employer] Phone: Interpretation and review of laboratory results Abnormal [facility] [employer] Phone: Potassium [Moles/Vol] 3.7 mmol/L [facility] [employer] Work Phone: Sodium [Moles/Vol] 134 mmol/L Low [facility] [employer] Phone: Urea nitrogen (BldV) [Mass/Vol] 17 mg/dL 6 - 20 mg/dL [facility] Phone: [facility] Phone: Microscopic UrinalysisOrdere d By: Raj Manning on 11-25-2020 Bacteria, UA RARE Abnormal Negative /HPF [facility] Phone: Epithelial Cells, UA 3-5 [facility] Work Phone: Hyaline Casts, UA 3-5 [facility] Work Phone: Interpretation and review of laboratory results Abnormal [employer] Work Phone: RBC, UA 6-10 Abnormal [facility] Work Phone: WBC, UA 50-100 Abnormal [employer] Work Phone: [employer] Work Phone: UrinalysisOrdered By: Raj Manning on 11-25-2020 Bilirubin Urine Negative Negative [employer] [facility] Work Phone: Blood, Urine Negative Negative [facility] Work Phone: Clarity, UA CLOUDY Abnormal Clear [employer] Work Phone: Color, UA Yellow Straw/Mower ow [employer] Work Phone: Glucose, Ur >=1000 Abnormal Negative mg/dL [facility] [employer] Work Phone: Interpretation and review of laboratory results Abnormal [employer] Work Phone: Ketones Ql (U) TRACE Abnormal Negative mg/dL [facility] [employer] Work Phone: Leukocyte esterase Test strip Ql (U) MODERATE Abnormal Negative [employer] Work Phone: Nitrite, Urine Negative Negative [facility] Work Phone: pH, UA 6.5 [facility] [employer] Work Phone: Protein, UA Negative Negative mg/dL [facility] [employer] Work Phone: Specific Dent, UA 1.029 [employer] Work Phone: Urobilinogen, Urine 1.0 <2.0 E.U./dL [employer] Work Phone: [employer] Work Phone: CBCon 11-19-2020 ABSOLUTE BAS 0.1 10*3/uL Normal 0.0-0.2 [facility] Comment on above: Performed By: #### A CBC #### Testing performed at [place] [address] [place] [facility] [place] [place] [address] ABSOLUTE EOS 0.20 10*3/uL Normal 0.0-0.7 [facility] Comment on above: Performed By: #### A CBC #### Testing performed at [address] [place] [address] ABSOLUTE NEUTROPHIL COUNT 2.6 10*3/uL Normal 1.4-6.5 [facility] Comment on above: Performed By: #### A CBC #### Testing performed at [address] [address] Basophils/100 WBC (Bld) 1.1 % Normal 0.0-2.0 [facility] Comment on above: Performed By: #### A CBC #### Testing performed at [address] [place] [address] DTYPE AUTO DIFF Normal [facility] Comment on above: Performed By: #### A CBC #### Testing performed at [address] [address] Eosinophils/100 WBC (Bld) 3.0 % Normal 0.0-11.0 [facility] Comment on above: Performed By: #### A CBC #### Testing performed at [address] [address] Lymphocytes (Bld) [#/Vol] 2.10 10*3/uL Normal 1.2-3.4 [facility] Comment on above: Performed By: #### A CBC #### Testing performed at [address] [address] Lymphocytes/100 WBC (Bld) 38.9 % Normal 20.0-55.0 [facility] Comment on above: Performed By: #### A CBC #### Testing performed at [address] [address] Monocytes (Bld) [#/Vol] 0.5 10*3/uL Normal 0.0-0.7 [facility] Comment on above: Performed By: #### A CBC #### Testing performed at [place] [address] [place] [address] Monocytes/100 WBC (Bld) 8.5 % Normal 0.0-10.0 [facility] Comment on above: Performed By: #### A CBC #### Testing performed at [address] [address] Neutrophils/100 WBC (Bld) 48.5 % Normal 37.0-75.0 [facility] Comment on above: Performed By: #### A CBC #### Testing performed at [address] [address] Erythrocyte distribution width (RBC) [Ratio] 14.6 % High 11.5-14.5 [facility] Comment on above: Performed By: #### A CBC #### Testing performed at [address] [address] Hematocrit (Bld) [Volume fraction] 39.7 % Normal 36.0-48.0 [facility] Comment on above: Performed By: #### A CBC #### Testing performed at [address] [address] Hemoglobin (Bld) [Mass/Vol] 13.6 g/dL Normal 12.0-16.0 [facility] Comment on above: Performed By: #### A CBC #### Testing performed at [address] [address] MCH (RBC) [Entitic mass] 28.8 pg Normal 26.0-35.0 [facility] Comment on above: Performed By: #### A CBC #### Testing performed at [address] [address] MCHC (RBC) [Mass/Vol] 34.3 g/dL Normal 27.0-37.0 [facility] Comment on above: Performed By: #### A CBC #### Testing performed at [address] [address] MCV (RBC) [Entitic vol] 84.1 fL Normal 80.0-100.0 [facility] Comment on above: Performed By: #### A CBC #### Testing performed at [address] [address] Platelet mean volume (Bld) [Entitic vol] 7.8 fL Normal 7.4-11.0 [facility] Comment on above: Performed By: #### A CBC #### Testing performed at [address] [address] Platelets (Bld) [#/Vol] 226 10*3/uL Normal 130.0-400. 0 [facility] Comment on above: Performed By: #### A CBC #### Testing performed at [address] [address] RBC (Bld) [#/Vol] 4.73 10*6/uL Normal 4.0-5.4 [facility] Comment on above: Performed By: #### A CBC #### Testing performed at [address] [address] WBC (Bld) [#/Vol] 5.5 10*3/uL Normal 3.6-11.0 [facility] Comment on above: Performed By: #### A CBC #### Testing performed at [address] [address] CBC, EDIF, PLATELETOrdered B y: Ludin Pay on 11-19-2020 ABSOLUTE BASOPHIL COUNT 0.1 10*3/uL 0.0 - 0.2 10*3/uL [facility] Basophils/100 WBC (Bld) 1.1 % 0.0 - 2.0 % [facility] Differential cell count method Nom (Bld) AUTO DIFF % [facility] Eosinophils (Bld) [#/Vol] 0.20 10*3/uL 0.0 - 0.7 10*3/uL [facility] Eosinophils/100 WBC (Bld) 3.0 % 0.0 - 11.0 % [facility] Erythrocyte distribution width (RBC) [Ratio] 14.6 % High 11.5 - 14.5 % [facility] Hematocrit (Bld) [Volume fraction] 39.7 % 36.0 - 48.0 % [facility] Hemoglobin (Bld) [Mass/Vol] 13.6 g/dL [facility] Interpretation and review of laboratory results Abnormal [facility] Lymphocytes (Bld) [#/Vol] 2.10 10*3/uL 1.2 - 3.4 10*3/uL [facility] Lymphocytes/100 WBC (Bld) 38.9 % 20.0 - 55.0 % [facility] MCH (RBC) [Entitic mass] 28.8 pg 26.0 - 35.0 PG [facility] MCHC (RBC) [Mass/Vol] 34.3 g/dL [facility] MCV (RBC) [Entitic vol] 84.1 fL [facility] Monocytes (Bld) [#/Vol] 0.5 10*3/uL 0.0 - 0.7 10*3/uL [facility] Monocytes/100 WBC (Bld) 8.5 % 0.0 - 10.0 % [facility] Neutrophils (Bld) [#/Vol] 2.6 10*3/uL 1.4 - 6.5 10*3/uL [facility] Neutrophils/100 WBC (Bld) 48.5 % 37.0 - 75.0 % [facility] Platelet mean volume (Bld) [Entitic vol] 7.8 fL [facility] Platelets (Bld) [#/Vol] 226 10*3/uL 130.0 - 400.0 10*3/uL [facility] RBC (Bld) [#/Vol] 4.73 10*6/uL 4.0 - 5.4 10*6/uL [facility] WBC (Bld) [#/Vol] 5.5 10*3/uL 3.6 - 11.0 10*3/uL [facility] CMP FASTINGon 11-19-2020 A:G RATIO 1.4 RATIO Normal 1.3-2.2 [facility] Comment on above: Performed By: #### A CBC #### Testing performed at [address] [address] ALBUMIN 4.7 G/dl Normal 3.5-5.0 [facility] Comment on above: Performed By: #### A CBC #### Testing performed at [address] [address] ALP [Catalytic activity/Vol] 82 U/L Normal 38-126 [facility] Comment on above: Performed By: #### A CBC #### Testing performed at [address] [address] ALT [Catalytic activity/Vol] 29 U/L Normal <35 [facility] Comment on above: Performed By: #### A CBC #### Testing performed at [address] [address] AST [Catalytic activity/Vol] 39 U/L High 14-36 [facility] Comment on above: Performed By: #### A CBC #### Testing performed at [address] [address] Bilirubin [Mass/Vol] 0.6 mg/dL Normal 0.2-1.3 [facility] Comment on above: Performed By: #### A CBC #### Testing performed at [address] [address] Calcium [Mass/Vol] 10.4 mg/dL High 8.4-10.2 [facility] Comment on above: Performed By: #### A CBC #### Testing performed at [address] [address] Chloride [Moles/Vol] 99 mmol/L Normal 98-107 [facility] Comment on above: Result Comment: Navjot reyez note: Triglyceride levels of 600mg/dL or higher may positively bias chloride results by approximately 2.1 mmol Performed By: #### A CBC #### Testing performed at [address] [address] CO2 [Moles/Vol] 29 mmol/L Normal 22-30 [facility] Comment on above: Performed By: #### A CBC #### Testing performed at [address] [address] Creatinine [Mass/Vol] 0.53 mg/dL Low 0.7-1.2 [facility] Comment on above: Performed By: #### A CBC #### Testing performed at [address] [address] EST. GFR, >60 Normal [facility] Comment on above: Performed By: #### A CBC #### Testing performed at [address] [address] EST. GFR,Non >60 Normal [facility] Comment on above: Performed By: #### A CBC #### Testing performed at [address] [address] GFR Information Average GFR for 40-4 9 years old = 99. Normal [facility] Comment on above: Result Comment: [employer] aiyana Kidney disease, GFR = <60. Kidney failure, GFR = <15. The GFR estimate is not adjusted for extreme body surface area or acute process, nor has it been validated for women or ethnic groups other than and . Performed By: #### A CBC #### Testing performed at [address] [address] Glucose [Mass/Vol] 301 mg/dL High 70-100 [facility] Comment on above: Result Comment: NORMAL <100 mg/dL PREDIABETES 101-126 mg/dL DIABETES 126 mg/dL or higher Performed By: #### A CBC #### Testing performed at [address] [address] Potassium [Moles/Vol] 3.8 mmol/L Normal 3.5-5.1 [facility] Comment on above: Performed By: #### A CBC #### Testing performed at [place] [address] [place] [address] Protein [Mass/Vol] 8.1 g/dL Normal 6.3-8.2 [facility] Comment on above: Performed By: #### A CBC #### Testing performed at [place] [address] [place] [address] Sodium [Moles/Vol] 140 mmol/L Normal 137-145 [facility] Comment on above: Performed By: #### A CBC #### Testing performed at [place] [address] [place] [address] Urea nitrogen [Mass/Vol] 13 mg/dL Normal 7-20 [facility] Comment on above: Performed By: #### A CBC #### Testing performed at [address] [address] COMPREHENSIVE METABOLIC PANE LOrdered By: Ludin Thomas on 11-19-2020 Albumin [Mass/Vol] 4.7 G/dl 3.5 - 5.0 G/dl [facility] Albumin/Globulin [Mass ratio] 1.4 {ratio} [facility] ALP [Catalytic activity/Vol] 82 U/L [facility] ALT [Catalytic activity/Vol] 29 U/L <35 IU/L [facility] AST [Catalytic activity/Vol] 39 U/L [facility] Bilirubin [Mass/Vol] 0.6 mg/dL [facility] Calcium [Mass/Vol] 10.4 mg/dL [facility] Chloride [Moles/Vol] 99 mmol/L [facility] Comment on above: Please note: Triglyc eride levels of 600mg/dL or higher may positively bias chloride results by approximately 2.1 mmol CO2 [Moles/Vol] 29 mmol/L [facility] Creatinine [Mass/Vol] 0.53 mg/dL Low [facility] GFR COMMENT Average GFR for 40-4 9 years old = 99. [facility] Comment on above: Chronic Kidney disea se, GFR = <60. Kidney failure, GFR = <15. The GFR estimate is not adjusted for extreme body surface area or acute process, nor has it been validated for women or ethnic groups other than and . GFR/1.73 sq M.predicted among blacks MDRD (S/P/Bld) [Vol rate/Area] mL/min/{1.73_m2} ml/min/1.7 3sq.m [facility] GFR/1.73 sq M.predicted among non-blacks MDRD (S/P/Bld) [Vol rate/Area] mL/min/{1.73_m2} ml/min/1.7 3sq.m [facility] Glucose post fast [Mass/Vol] 301 mg/dL High [facility] Comment on above: NORMAL <100 mg/dL PREDIABETES 101-126 mg/dL DIABETES 126 mg/dL or higher Interpretation and review of laboratory results Abnormal [facility] Potassium [Moles/Vol] 3.8 mmol/L [facility] Protein [Mass/Vol] 8.1 g/dL [facility] Sodium [Moles/Vol] 140 mmol/L [facility] Urea nitrogen [Mass/Vol] 13 mg/dL [facility] LIPASEOrdered By: Ludin vitale on 11-19-2020 Lipase [Catalytic activity/Vol] 217 U/L 23 - 300 U/L [facility] LIPASE,SERUMon 11-19-2020 LIPASE,SERUM 217 U/L Normal 23-300 [facility] Comment on above: Performed By: #### A CBC #### [place] [address] No Panel InformationOrdered By: Ludin Thomas on 11-19-2020 [facility] Interpretation and review of laboratory results Abnormal [facility] URINALYSIS, MACROOrdered By: Ludin Thomas on 11-19-2020 Bilirubin Ql (U) Negative NEGATIVE [facility] Clarity (U) SL CLOUDY Abnormal CLEAR [facility] Color (U) YELLOW YELLOW [facility] Glucose Test strip (U) [Mass/Vol] 500 mg/dl Abnormal NEGATIVE [facility] Hemoglobin Ql (U) LARGE Abnormal NEGATIVE [facility] Ketones (U) [Mass/Vol] 15 mg/dL Abnormal NEGATIVE [facility] Leukocyte esterase Test strip Ql (U) TRACE Abnormal NEGATIVE [facility] Nitrite Ql (U) Negative NEGATIVE [facility] pH (U) 5.5 [pH] [facility] Protein Ql (U) TRACE Abnormal NEGATIVE mg/dl [facility] Specific gravity (U) [Rel density] >1.030 High [facility] Urobilinogen (U) [Mass/Vol] 2.0 mg/dL High [facility] URINE MACROSCOPICon 11-20-19 21 Bilirubin Ql (U) Negative Normal NEGATIVE [facility] Clarity (U) SL CLOUDY Abnormal CLEAR [facility] Color (U) YELLOW Normal YELLOW [facility] Glucose Ql (U) 500 mg/dl Abnormal NEGATIVE [facility] pH (U) 5.5 [pH] Normal 5.0-7.0 [facility] URINE HEMOGLOBIN LARGE Abnormal NEGATIVE [facility] URINE KETONE 15 mg/dl Abnormal NEGATIVE [facility] URINE LEUKOTEST TRACE Abnormal NEGATIVE [facility] URINE NITRATES Negative Normal NEGATIVE [facility] URINE SPEC GRAVITY >1.030 High 1.010-1.0 2 5 [facility] URINE TOTAL PROTEIN TRACE Abnormal NEGATIVE [facility] Urobilinogen Qn (U) 2.0 {Diaz'U}/dL High 0.2-1.0 [facility] URINE MICROSCOPICon 11-20-19 21 BACTERIA 1+ Abnormal NEGATIVE [facility] CASTS NONE Normal [facility] CRYSTAL RARE Abnormal NONE [facility] Comment on above: Result Comment: CA O XALATE CRYSTALS Epithelial cells LM Ql (Urine sed) 20 TO 30 Normal [facility] Mucus Ql (Urine sed) 2+ Abnormal NEGATIVE [facility] URINE COMMENT POSSIBLY CONTAMINATE D SPECIMEN, CULTURE MUST BE ORDERED SEPARATELY IF DEEMED NECESSARY. Normal [facility] URINE RBC'S 1 TO 5 Normal NEGATIVE [facility] URINE WBC'S 1 TO 5 Normal NEGATIVE [facility] URINE MICROSCOPICOrdered By: Ludin Thomas on 11-19-2020 Bacteria LM.HPF (Urine sed) [#/Area] 1+ Abnormal NEGATIVE [facility] Casts LM.LPF (Urine sed) [#/Area] NONE NONE /LPF [facility] Crystals LM Nom (Urine sed) RARE Abnormal NONE [facility] Comment on above: CA OXALATE CRYSTALS Epithelial cells LM Ql (Urine sed) 20 TO 30 /HPF [facility] Mucus Ql (Urine sed) 2+ Abnormal NEGATIVE [facility] RBC LM.HPF (Urine sed) [#/Area] 1 TO 5 NEGATIVE /HPF [facility] Urine sediment comments LM Clint (Urine sed) POSSIBLY CONTAMINATED SPECIMEN, CULTURE MUST BE ORDERED SEPARATELY IF DEEMED NECESSARY. [facility] WBC LM.HPF (Urine sed) [#/Area] 1 TO 5 NEGATIVE /HPF [facility] XR ACUTE ABDOMINAL SERIESon 11-19-2020 XR ACUTE [...] 3. Patient is status post cholecystectomy. Normal [facility] XR ACUTE ABDOMINAL SERIESOrd ered By: Ludin Thomas on 11-19-2020 IMPRESSION: 1. Sligh t bilateral perihilar bronchitis which may be acute or chronic in nature. 2. Unremarkable bowel gas pattern. 3. Patient is status post cholecystectomy. [facility] EXAM: XR ACUTE ABDOM INAL SERIES HISTORY: [...] the colon. Calcified phleboliths in the pelvis. [facility] User, Interfaces - 11/19/2020 9:33 PM EDT [...] pattern. 3. Patient is status post cholecystectomy. [facility] CBC W Auto Differential pane l (Bld)on 11-05-2020 Basophils (Bld) [#/Vol] 0.07 10*3/uL Normal <=0.70 [facility] Comment on above: Performed By: #### G LUM #### [place] [address] [employer] - Patricia SÁNCHEZIA [id number] Basophils/100 WBC (Bld) 1.0 % Normal <=2.0 [facility] Comment on above: Performed By: #### G LUM #### [place] [address] [employer] - Patricia Bertrand CLIA [id number] Eosinophils (Bld) [#/Vol] 0.09 10*3/uL Normal <=0.70 [facility] Comment on above: Performed By: #### G LUM #### [place] [address] [employer] - Patricia SÁNCHEZIA [id number] Eosinophils/100 WBC (Bld) 1.3 % Normal <=10.0 [facility] Comment on above: Performed By: #### G LUM #### [place] [address] [employer] - Patricia SÁNCHEZIA [id number] Erythrocyte distribution width (RBC) [Entitic vol] 37.7 fL Normal 36.4-46.3 [facility] Comment on above: Performed By: #### G LUM #### [address] [place] [address] [employer] - Patricia Bertrand CLIA [id number] Hematocrit (Bld) [Volume fraction] 37.6 % Normal 37.0-47.0 [facility] Comment on above: Performed By: #### G LUM #### [address] [place] [address] [employer] - Patricia Bertrand CLIA [id number] Hemoglobin (Bld) [Mass/Vol] 12.6 g/dL Normal 12.0-16.0 [facility] Comment on above: Performed By: #### G LUM #### [address] [place] [address] [employer] - Patricia Bertrand CLIA [id number] Immature granulocytes (Bld) [#/Vol] 0.01 10*3/uL Normal <=0.10 [facility] Comment on above: Performed By: #### G LUM #### [place] [address] [employer] - Patricia Bertrand CLIA [id number] Immature granulocytes/100 WBC (Bld) 0.10 % Normal <=1.50 [facility] Comment on above: Performed By: #### G LUM #### [address] [place] [address] [employer] - Patricia Bertrand CLIA [id number] Lymphocytes (Bld) [#/Vol] 2.52 10*3/uL Normal 1.20-3.40 [facility] Comment on above: Performed By: #### G LUM #### [address] [place] [address] [employer] - Patricia Bertrand CLIA [id number] Lymphocytes/100 WBC (Bld) 37.4 % Normal 20.0-40.0 [facility] Comment on above: Performed By: #### G LUM #### [address] [place], [place] [address] [employer] - Patricia SÁNCHEZIA [id number] MCH (RBC) [Entitic mass] 27.6 pg Normal 27.0-31.0 [facility] Comment on above: Performed By: #### G LUM #### [place] [address] [employer] - Patricia SÁNCHEZIA [id number] MCHC (RBC) [Mass/Vol] 33.5 g/dL Normal 32.0-36.0 [facility] Comment on above: Performed By: #### G LUM #### [place] [address] [employer] - Patricia SÁNCHEZIA [id number] MCV (RBC) [Entitic vol] 82.5 fL Normal 80.0-100.0 [facility] Comment on above: Performed By: #### G LUM #### [place] [address] [employer] - Patricia Bertrand CLIA [id number] Monocytes (Bld) [#/Vol] 0.62 10*3/uL High 0.10-0.60 [facility] Comment on above: Performed By: #### G LUM #### [place] [address] [employer] - Patricia Bertrand CLIA [id number] Monocytes/100 WBC (Bld) 9.2 % High <=8.0 [facility] Comment on above: Performed By: #### G LUM #### [place] [address] [employer] - Patricia Bertrand CLIA [id number] Neutrophils (Bld) [#/Vol] 3.43 10*3/uL Normal 1.40-6.50 [facility] Comment on above: Performed By: #### G LUM #### [place] [address] [employer] - Patricia Bertrand CLIA [id number] Neutrophils/100 WBC (Bld) 51.0 % Normal 50.0-70.0 [facility] Comment on above: Performed By: #### G LUM #### [place] [address] [facility]. [place] [address] [employer] - Patricia SÁNCHEZIA [id number] Nucleated RBC (Bld) [#/Vol] 0.00 10*3/uL Normal <=0.10 [facility] Comment on above: Performed By: #### G LUM #### [address] [place] [address] [employer] - Patricia SÁNCHEZIA [id number] Platelet mean volume (Bld) [Entitic vol] 9.7 fL Normal 9.0-13.0 [facility] Comment on above: Performed By: #### G LUM #### [address] [place] [address] [employer] - Patricia Bertrand CLIA [id number] Platelets (Bld) [#/Vol] 216 10*3/uL Normal 130-400 [facility] Comment on above: Performed By: #### G LUM #### [address] [place] [address] [employer] - Patricia SÁNCHEZIA [id number] RBC (Bld) [#/Vol] 4.56 10*6/uL Normal 4.00-6.30 [facility] Comment on above: Performed By: #### G LUM #### [address] [place] [address] [employer] - Patricia SÁNCHEZIA [id number] WBC (Bld) [#/Vol] 6.74 10*3/uL Normal 4.80-10.80 [facility] Comment on above: Performed By: #### G LUM #### [address] [place] [address] [employer] - Patricia Bertrand CLIA [id number] Comprehensive metabolic 2000 panelon 11-05-2020 Albumin [Mass/Vol] 3.8 g/dL Normal 3.4-5.0 [facility] Comment on above: Performed By: #### 2 4323-8, 95320-3, 3040-3, 95310-0, 99582-9 #### [facility] [address] [place] [address] [employer] - Patricia YEPEZ [id number] ALP [Catalytic activity/Vol] 72 U/L Normal 50-136 [facility] Comment on above: Performed By: #### 2 4323-8, 09564-3, 3040-3, 72505-7, 96678-2 #### [facility] [address] [place] [address] [employer] - Patricia SÁNCHEZIA [id number] ALT [Catalytic activity/Vol] 25 U/L Normal 14-59 [facility] Comment on above: Performed By: #### 2 4323-8, 31135-5, 3040-3, 60849-9, 32671-8 #### [facility] [address] [place] [address] [employer] - Patricia SÁNCHEZIA [id number] Anion gap [Moles/Vol] 6.0 mmol/L Normal <=15.0 [facility] Comment on above: Performed By: #### 2 4323-8, 35172-6, 3040-3, 73346-0, 92833-1 #### [facility] [address] [place] [address] [employer] - Patricia SÁNCHEZIA [id number] AST [Catalytic activity/Vol] 14 U/L Low 15-37 [facility] Comment on above: Performed By: #### 2 4323-8, 98569-7, 3040-3, 57407-7, 93889-9 #### [facility] [address] [place] [address] [employer] - Patricia SÁNCHEZIA [id number] Bilirubin [Mass/Vol] 0.4 mg/dL Normal 0.2-1.0 [facility] Comment on above: Performed By: #### 2 4323-8, 03206-1, 3040-3, 28629-5, 84352-4 #### [facility] [address] [place] [address] [employer] - Patricia SÁNCHEZIA [id number] Calcium [Mass/Vol] 9.5 mg/dL Normal 8.5-10.1 [facility] Comment on above: Performed By: #### 2 4323-8, 58407-9, 3040-3, 22796-7, 57706-5 #### [facility] [address] [place] [address] [employer] - Patricia SÁNCHEZIA [id number] Chloride [Moles/Vol] 105 mmol/L Normal 98-107 [facility] Comment on above: Performed By: #### 2 4323-8, 69775-6, 3040-3, 20709-3, 13059-1 #### [facility] [address] [place] [address] [employer] - Patricia SÁNCHEZIA [id number] CO2 [Moles/Vol] 30 mmol/L Normal 21-32 [facility] Comment on above: Performed By: #### 2 4323-8, 32544-8, 3040-3, 81235-6, 90210-5 #### [facility] [address] [place] [address] [employer] - Patricia SÁNCHEZIA [id number] Creatinine [Mass/Vol] 0.63 mg/dL Normal 0.51-0.95 [facility] Comment on above: Performed By: #### 2 4323-8, 34830-4, 3040-3, 71422-8, 97553-4 #### [facility] [address] [place] [address] [employer] - Patricia SÁNCHEZIA [id number] GFR/1.73 sq M.predicted MDRD (S/P/Bld) [Vol rate/Area] mL/min/{1.73_m2} Normal >=59 [facility] Comment on above: Performed By: #### 2 4323-8, 97495-6, 3040-3, 10858-6, 06958-6 #### [facility] [address] [place] [address] [employer] - Patricia YEPEZ [id number] Glucose [Mass/Vol] 129 mg/dL High 74-106 [facility] Comment on above: Performed By: #### 2 4323-8, 90130-4, 3040-3, 18956-5, 28225-0 #### [facility] [address] [place] [address] [employer] - Patricia YEPEZ [id number] HGFR GLOMERULAR FILTRATIO N RATE INTERPRETATION~The eGFR [...] months, with or without kidney damage.~ Normal [facility] Comment on above: Performed By: #### 2 4323-8, 70860-8, 3040-3, 76880-7, 35253-3 #### [facility] [address] [place] [address] [employer] - Patricia YEPEZ [id number] Potassium [Moles/Vol] 3.3 mmol/L Low 3.5-5.1 [facility] Comment on above: Performed By: #### 2 4323-8, 49225-8, 3040-3, 96584-9, 70710-3 #### [facility] [address] [place] [address] [employer] - Patricia YEPEZ [id number] Protein [Mass/Vol] 7.4 g/dL Normal 6.4-8.2 [facility] Comment on above: Performed By: #### 2 4323-8, 99888-5, 3040-3, 74882-3, 39794-7 #### [facility] [address] [place] [address] [employer] - Patricia YEPEZ [id number] Sodium [Moles/Vol] 141 mmol/L Normal 136-145 [facility] Comment on above: Performed By: #### 2 4323-8, 30353-1, 3040-3, 06997-1, 39217-8 #### [facility] [address] [place] [address] [employer] - Patricia YEPEZ [id number] Urea nitrogen [Mass/Vol] 18 mg/dL High 7-17 [facility] Comment on above: Performed By: #### 2 4323-8, 76137-0, 3040-3, 11063-2, 92188-1 #### [place] [address] [place] [address] [employer] - Patricia YEPEZ [id number] Drugs identified Screen Nom (U)on 11-05-2020 Amphetamines Ql (U) Not detected Normal CUTOFF = 500 [facility] Comment on above: Performed By: #### 1 2286-1 #### [facility] [address] [place] [address] [employer] - Patricia YEPEZ [id number] Barbiturates Ql (U) Not detected Normal CUTOFF = 200 [facility] Comment on above: Performed By: #### 1 2286-1 #### [facility] [address] [place] [address] [employer] - Patricia Bertrand ANN [id number] Benzodiazepines Ql (U) Not detected Normal CUTOF F = 150 [facility] Comment on above: Performed By: #### 1 2286-1 #### [facility] [address] [place] [address] [employer] - Patricia Bertrand ANN [id number] Cocaine Ql (U) Not detected Normal CUTOFF = 150 [facility] Comment on above: Performed By: #### 1 2286-1 #### [facility] [address] [place] [address] [employer] - Patricia YEPEZ [id number] [facility] Drugs of abuse alecia lance provides only a preliminary analytical test result. A more specific alternate chemical method must be used in order to obtain a confimed analytical result. Clinical consideration and professional judgment should be applied to any drug of abuse test result, particularly when preliminary positive results are obtained. Normal [facility] Comment on above: Performed By: #### 1 2286-1 #### [facility] [address] [place] [address] [employer] - Patricia YEPEZ [id number] Methadone Ql (U) Not detected Normal CUTOFF = 200 [facility] Comment on above: Performed By: #### 1 2286-1 #### [facility] [address] [place] [address] [employer] - Patricia YEPEZ [id number] Opiates Ql (U) Not detected Normal CUTOFF = 300 [facility] Comment on above: Performed By: #### 1 2286-1 #### [facility] [address] [place] [address] [employer]ician [employer] - Patricia YEPEZ [id number] oxyCODONE Ql (U) Not detected Normal CUTOFF = 100 [facility] Comment on above: Performed By: #### 1 2286-1 #### [facility] [address] [place] [address] [employer] - Patricia YEPEZ [id number] Phencyclidine Ql (U) Not detected Normal CUTOFF = 25 [facility] Comment on above: Performed By: #### 1 2286-1 #### [facility] [address] [place] [address] [employer] Technician [employer]ic - Patricia YEPEZ [id number] Tetrahydrocannabinol Ql (U) Not detected Normal CUTOFF = 50 [facility] Comment on above: Performed By: #### 1 2286-1 #### [facility] [address] [place] [address] [employer] Technician [employer]ic - Patricia YEPEZ [id number] LACTATEon 11-05-2020 Lactate [Moles/Vol] 1.9 mmol/L Normal 0.4-2.0 [facility] Comment on above: Performed By: #### 1 2286-1 #### [facility] [address] [place] [address] Diesel Technician Mechanic - [facility] [id number] LIPASEon 11-05-2020 Lipase [Catalytic activity/Vol] 201 U/L Normal 73-393 [facility] Comment on above: Performed By: #### G LUM #### [facility] [address] [place] [address] [employer]el Technician Mechanic - [facility] [id number] MAGNESIUMon 11-05-2020 Magnesium [Mass/Vol] 1.8 mg/dL Normal 1.6-2.6 [facility] Comment on above: Performed By: #### G LUM #### [facility] [address] [place] [address] [employer]el Technician Mechanic - [facility] [id number] TROPONIN Ion 11-05-2020 Troponin I.cardiac [Mass/Vol] ng/mL Normal <=0.045 [facility] Comment on above: Performed By: #### G LUM #### [facility] [address] [place] [address] [employer]el Technician Mechanic - [facility] [id number] TSH DL <= 0.05 mIU/L Qnon TSH Qn 7.950 uIU/mL High 0.358-3.74 0 [facility] Comment on above: Performed By: #### G LUM #### [facility] [address] [place] [address] [employer]el Technician Mechanic - [facility] [id number] URINALYSIS with MICROSCOPICo n 11-05-2020 AMMONIUM URATES Normal NONE SEEN [facility] Comment on above: Performed By: #### U AMR #### [facility] [address] [place] [address] [employer]el Technician Mechanic - [facility] [id number] Performed for [facility] [address] [place], [place] [address] AMORPHOUS PHOSPHATES Normal NONE SEEN [facility] Comment on above: Performed By: #### U AMR #### [facility] [address] [place], [place] [address] [employer]el Technician Mechanic - Patricia YEPEZ [id number] Performed for [facility] [address] [place], [place] [address] AMORPHOUS URATES Normal NONE SEEN [facility] Comment on above: Performed By: #### U AMR #### [facility] [address] [place], [place] [address] Diesel Technician Mechanic - Patricia SÁNCHEZIA [id number] Performed for [facility] [address] [place], [place] [address] BACTERIA Normal TRACE [facility] Comment on above: Performed By: #### U AMR #### [facility] [address] [place], [place] [address] [employer] Technician Mechanic - Patricia SÁNCHEZIA [id number] Performed for [facility] [address] [place], [place] [address] Bilirubin Ql (U) Negative Normal NEGATIVE [facility] Comment on above: Performed By: #### U AMR #### [facility] [address] [place], [place] [address] [employer]el Technician Mechanic - Patricia SÁNCHEZIA [id number] Performed for [facility] [address] [place], [place] [address] CALCIUM CARBONATES Normal NONE SEEN [facility] Comment on above: Performed By: #### U AMR #### [facility] [address] [place], [place] [address] [employer]el Technician Mechanic - Patricia Bertrand CLIA [id number] Performed for [facility] [address] [place], [place] [address] CALCIUM OXALATES Normal FEW [facility] Comment on above: Performed By: #### U AMR #### [facility] [address] [place], [place] [address] [employer]el Technician Mechanic - Patricia Bertrand CLIA [id number] Performed for [facility] [address] [place], [place] [address] CALCIUM PHOSPHATES Normal NONE SEEN [facility] Comment on above: Performed By: #### U AMR #### [facility] [address] [place] [address] [employer]el Technician Mechanic - Patricia YEPEZ [id number] Performed for [facility] [address] [place], [place] [address] CHOLESTEROL CRYSTALS Normal NONE SEEN [facility] Comment on above: Performed By: #### U AMR #### [facility] [address] [place] [address] Diesel Technician Mechanic [facility] [id number] Performed for [facility] [address] [place], [place] [address] Clarity (U) Cloudy Abnormal CLEAR [facility] Comment on above: Performed By: #### U AMR #### [facility] [address] [place] [address] [employer]el Technician Mechanic - Patricia Bertrand LUCHO [id number] Performed for [facility] [address] [place] [address] Coarse Granular Casts LM.LPF (Urine sed) [#/Area] Normal NONE SEEN [facility] Comment on above: Performed By: #### U AMR #### [facility] [address] [place] [address] Diesel Technician Mechanic - [facility] [id number] Performed for [facility] [address] [place], [place] [address] Color (U) Yellow Normal YELLOW [facility] Comment on above: Performed By: #### U AMR #### [facility] [address] [place] [address] Diesel Technician Mechanic - [facility] [id number] Performed for [facility] [address] [place], [place] [address] CYSTINE CRYSTALS Normal NONE SEEN [facility] Comment on above: Performed By: #### U AMR #### [facility] [address] [place] [address] Diesel Technician Mechanic - Patricia Jerzy YEPEZ [id number] Performed for [facility] [address] [place] [address] Epithelial cells.renal LM.HPF (Urine sed) [#/Area] Normal NONE SEEN [facility] Comment on above: Performed By: #### U AMR #### [facility] [address] [place] [address] Diesel Technician Mechanic - Patricia YEPEZ [id number] Performed for [facility] [address] [place], [place] [address] Epithelial cells.squamous LM.LPF (Urine sed) [#/Area] Normal 0-5 [facility] Comment on above: Performed By: #### U AMR #### [facility] [address] [place] [address] Diesel Technician Mechanic - Patricia YEPEZ [id number] Performed for [facility] [address] [place], [place] [address] Fatty casts LM.LPF (Urine sed) [#/Area] Normal NONE SEEN [facility] Comment on above: Performed By: #### U AMR #### [facility] [address] [place] [address] Diesel Technician Mechanic - Patricia YEPEZ [id number] Performed for [facility] [address] [place], [place] [address] Fine Granular Casts LM.LPF (Urine sed) [#/Area] Normal NONE SEEN [facility] Comment on above: Performed By: #### U AMR #### [facility] [address] [place] [address] Diesel Technician Mechanic - Patricia YEPEZ [id number] Performed for [facility] [address] [place], [place] [address] Glucose Ql (U) 2+ Abnormal NEGATIVE [facility] Comment on above: Performed By: #### U AMR #### [facility] [address] [place] [address] Diesel Technician Mechanic - Patricia YEPEZ [id number] Performed for [facility] [address] [place], [place] [address] Hemoglobin Ql (U) 3+ Abnormal NEGATIVE [facility] Comment on above: Performed By: #### U AMR #### [facility] [address] [place] [address] Diesel Technician Mechanic - Patricia YEPEZ [id number] Performed for [facility] [address] [place], [place] [address] HIPPURIC ACID ARTHUR Normal NONE SEEN [facility] Comment on above: Performed By: #### U AMR #### [facility] [address] [place], [place] [address] Diesel Technician Mechanic - Patricia YEPEZ [id number] Performed for [facility] [address] [place], [place] [address] HMICRO MANUAL MICROSCOPIC Normal [facility] Comment on above: Performed By: #### U AMR #### [facility] [address] [place] [address] Diesel Technician Mechanic - Patricia YEPEZ [id number] Performed for [facility] [address] [place], [place] [address] Hyaline casts (Urine sed) [#/Area] Normal 0-8 [facility] Comment on above: Performed By: #### U AMR #### [facility] [address] [place] [address] Diesel Technician Mechanic - Patricia YEPEZ [id number] Performed for [facility] [address] [place], [place] [address] KETONE Trace Abnormal NEGATIVE [facility] Comment on above: Performed By: #### U AMR #### [facility] [address] [place], [place] [address] Diesel Technician Mechanic - Patricia YEPEZ [id number] Performed for [facility] [address] [place], [place] [address] LEUCINE CRYSTALS Normal NONE SEEN [facility] Comment on above: Performed By: #### U AMR #### [facility] [address] [place] [address] Diesel Technician Mechanic - Patricia YEPEZ [id number] Performed for [facility] [address] [place] [address] Leukocyte esterase Test strip Ql (U) Trace Normal TRACE [facility] Comment on above: Performed By: #### U AMR #### [facility] [address] [place] [address] Diesel Technician Mechanic - Patricia YEPEZ [id number] Performed for [facility] [address] [place], [place] [address] MONOSODIUM URATES Normal NONE SEEN [facility] Comment on above: Performed By: #### U AMR #### [facility] [address] [place], [place] [address] Diesel Technician Mechanic - Patricia Bertrand LUCHO [id number] Performed for [facility] [address] [place], [place] [address] MUCOUS SMALL Abnormal TRACE [facility] Comment on above: Performed By: #### U AMR #### [facility] [address] [place] [address] Diesel Technician Mechanic - PatriciaDeKalb Regional Medical CenterBertrandfaviola YEPEZ [id number] Performed for [facility] [address] [place], [place] [address] Nitrite Ql (U) Negative Normal NEGATIVE [facility] Comment on above: Performed By: #### U AMR #### [facility] [address] [place] [address] Diesel Technician Mechanic - PatriciaVirtua Our Lady [facility]ourdes Medical CenterANN [id number] Performed for [facility] [address] [place], [place] [address] pH (U) 6.0 [pH] Normal 5.5-7.5 [facility] Comment on above: Performed By: #### U AMR #### [facility] [address] [place] [address] Diesel Technician Mechanic - Patricia Bertrandfaviola YEPEZ [id number] Performed for [facility] [address] [place], [place] [address] Protein Ql (U) Trace Abnormal NEGATIVE [facility] Comment on above: Performed By: #### U AMR #### [facility] [address] [place] [address] Diesel Technician Mechanic - PatriciaVirtua Our [facility]our[facility] Medical CenterANN [id number] Performed for [facility] [address] [place], [place] [address] RBC casts LM.LPF (Urine sed) [#/Area] Normal NONE SEEN [facility] Comment on above: Performed By: #### U AMR #### [facility] [address] [place] [address] Diesel Technician Mechanic - Patricia YEPEZ [id number] Performed for [facility] [address] [place], [place] [address] RBC LM.HPF (Urine sed) [#/Area] /[HPF] Abnormal 0-4 [facility] Comment on above: Performed By: #### U AMR #### [facility] [address] [place] [address] Diesel Technician Mechanic - Patricia YEPEZ [id number] Performed for [facility] [address] [place], [place] [address] Specific gravity (U) [Rel density] 1.025 Normal 1.010-1.03 5 [facility] Comment on above: Performed By: #### U AMR #### [facility] [address] [place] [address] Diesel Technician Mechanic - Patricia YEPEZ [id number] Performed for [facility] [address] [place], [place] [address] SPERM Normal [facility] Comment on above: Performed By: #### U AMR #### [facility] [address] [place] [address] Diesel Technician Mechanic - Patricia YEPEZ [id number] Performed for [facility] [address] [place], [place] [address] SQUAMOUS EPITHELIALS >15 Abnormal 0-5 [facility] Comment on above: Performed By: #### U AMR #### [facility] [address] [place], [place] [address] Diesel Technician Mechanic - Patricia YEPEZ [id number] Performed for [facility] [address] [place], [place] [address] STARCH CRYSTALS Normal NONE SEEN [facility] Comment on above: Performed By: #### U AMR #### [facility] [address] [place] [address] Diesel Technician Mechanic - Patricia YEPEZ [id number] Performed for [facility] [address] [place], [place] [address] SULFONAMIDES Normal NONE SEEN [facility] Comment on above: Performed By: #### U AMR #### [facility] [address] [place] [address] Diesel Technician Mechanic - Patricia YEPEZ [id number] Performed for [facility] [address] [place], [place] [address] Transitional cells LM.LPF (Urine sed) [#/Area] Normal NONE SEEN [facility] Comment on above: Performed By: #### U AMR #### [facility] [address] [place] [address] Diesel Technician Mechanic - Patricia YEPEZ [id number] Performed for [facility] [address] [place] [address] TRICHOMONAS Normal NONE SEEN [facility] Comment on above: Performed By: #### U AMR #### [facility] [address] [place] [address] Diesel Technician Mechanic - Patricia YEPEZ [id number] Performed for [facility] [address] [place], [place] [address] TRIPLE PHOSPHATES Normal NONE SEEN [facility] Comment on above: Performed By: #### U AMR #### [facility] [address] [place] [address] Diesel Technician Mechanic - Patricia YEPEZ [id number] Performed for [facility] [address] [place], [place] [address] TYROSINE CRYSTALS Normal NONE SEEN [facility] Comment on above: Performed By: #### U AMR #### [facility] [address] [place] [address] Diesel Technician Mechanic - Patricia YEPEZ [id number] Performed for [facility] [address] [place], [place] [address] URIC ACID CRYSTALS Normal NONE SEEN [facility] Comment on above: Performed By: #### U AMR #### [facility] [address] [place] [address] Diesel Technician Mechanic - Patricia YEPEZ [id number] Performed for [facility] [address] [place] [address] Urobilinogen Qn (U) Normal <=1.0 [facility] Comment on above: Result Comment: 2.0 E.U./dL Performed By: #### U AMR #### [facility] [address] [place], [place] [address] Diesel Technician Mechanic - Patricia YEPEZ [id number] Performed for [facility] [address] [place], [place] [address] Waxy casts LM Ql (Urine sed) Normal NONE SEEN [facility] Comment on above: Performed By: #### U AMR #### [facility] [address] [place], [place] [address] Diesel Technician Mechanic - Patricia YEPEZ [id number] Performed for [facility] [address] [place], [place] [address] WBC casts LM.LPF (Urine sed) [#/Area] Normal NONE SEEN [facility] Comment on above: Performed By: #### U AMR #### [facility] [address] [place], [place] [address] Diesel Technician Mechanic - Patricia YEPEZ [id number] Performed for [facility] [address] [place], [place] [address] WBC LM.HPF (Urine sed) [#/Area] 6-10 Abnormal 0-5 [facility] Comment on above: Performed By: #### U AMR #### [facility] [address] [place], [place] [address] Diesel Technician Mechanic - Patricia YEPEZ [id number] Performed for [facility] [address] [place], [place] [address] YEAST BUDDING Normal NONE SEEN [facility] Comment on above: Performed By: #### U AMR #### [facility] [address] [place], [place] [address] Diesel Technician Mechanic - Patricia YEPEZ [id number] Performed for [facility] [address] [place], [place] [address] YEAST PSEUDOHYPHAE Normal NONE SEEN [facility] Comment on above: Performed By: #### U AMR #### [facility] [address] [place], [place] [address] Diesel Technician Mechanic - Patricia YEPEZ [id number] Performed for [facility] [address] [place], [place] [address] pH (BldV)on 11-05-2020 Base excess standard Calc (BldV) [Moles/Vol] 1 mmol/L Normal -2-3 [facility] Comment on above: Performed By: #### 1 2286-1 #### [facility] [address] [place] [address] Diesel Technician Mechanic - Patricia YEPEZ [id number] Carboxyhemoglobin (BldA) [Mass fraction] 0.6 % Normal [facility] Comment on above: Performed By: #### 1 2286-1 #### [facility] [address] [place], [place] [address] [place] [address] Diesel Technician Mechanic - Patricia YEPEZ [id number] CO2 (BldV) [Partial pressure] 39.5 mm/Hg Low 41.0-51.0 [facility] Comment on above: Performed By: #### 1 2286-1 #### [address] [place] [address] Diesel Technician Mechanic - Patricia YEPEZ [id number] DEOXYHEMOGLOBIN 2 % Normal [facility] Comment on above: Performed By: #### 1 2286-1 #### [facility] [address] [place] [address] Diesel Technician Mechanic - Patricia YEPEZ [id number] HCARBOXY NON-SMOKERS 0.0-1.5% SMOKERS 1.5-5.0% Normal [facility] Comment on above: Performed By: #### 1 2286-1 #### [facility] [address] [place] [address] Diesel Technician Mechanic - Patricia YEPEZ [id number] HCO3 (Bld) [Moles/Vol] 25.2 mmol/L Normal 23.0-28.0 [facility] Comment on above: Performed By: #### 1 2286-1 #### [facility] [address] [place] [address] Diesel Technician Mechanic - Patricia YEPEZ [id number] HEADING CO-OXIMETRY CO-OXIMETRY Normal [facility] Comment on above: Performed By: #### 1 2286-1 #### [address] [place] [address] Diesel Technician Mechanic - Patricia SÁNCHEZIA [id number] Methemoglobin (BldA) [Mass fraction] 0.3 % Normal 0.0-1.5 [facility] Comment on above: Performed By: #### 1 2286-1 #### [address] [place] [address] [employer]el Technician Mechanic - Patricia SÁNCHEZIA [id number] Oxyhemoglobin (BldV) [Mass fraction] 97 % High 40-70 [facility] Comment on above: Performed By: #### 1 2286-1 #### [address] [place] [address] Diesel Technician Mechanic - Patricia YEPEZ [id number] pH (Bld) 7.422 [pH] High 7.310-7.41 0 [facility] Comment on above: Performed By: #### 1 2286-1 #### [address] [facility] [place] [address] Diesel Technician Mechanic - Patricia SÁNCHEZIA [id number] pO2 103 mm/Hg High 30-50 [facility] Comment on above: Performed By: #### 1 2286-1 #### [address] [facility] [place] [address] Diesel Technician Mechanic - Patricia SÁNCHEZIA [id number] sO2 98 % Normal 75-100 [facility] Comment on above: Performed By: #### 1 2286-1 #### [address] [facility] [place] [address] Diesel Technician Mechanic - Patricia SÁNCHEZIA [id number] CULTURE URINEon 10-25-2020 Bacteria identified Cx Nom (U) COLONY COUNT = ZERO COLONY FORMING UNITS, ML ISOL NO GROWTH OBSERVED AFTER 1 DAY NO GROWTH OBSERVED AFTER 2 DAYS Normal [facility] Comment on above: Performed By: #### G LUM #### [address] [facility] [place] [address] Diesel Technician Mechanic - Patricia SÁNCHEZIA [id number] CT ABDOMEN AND PELVIS WITHOU T CONTRASTon [...] Additional chronic and postsurgical changes noted. Normal [facility] CBC W Auto Differential pane l (Bld)on 10-23-2020 Basophils (Bld) [#/Vol] 0.03 10*3/uL Normal <=0.70 [facility] Comment on above: Performed By: #### G LUM #### [facility] [address] [place] [address] Diesel Technician Mechanic - Patricia Bertrand CLIA [id number] Basophils/100 WBC (Bld) 0.6 % Normal <=2.0 [facility] Comment on above: Performed By: #### G LUM #### [address] [place] [address] Diesel Technician Mechanic - Patricia Bertrand CLIA [id number] Eosinophils (Bld) [#/Vol] 0.06 10*3/uL Normal <=0.70 [facility] Comment on above: Performed By: #### G LUM #### [address] [place] [address] Diesel Technician Mechanic - Patricia Bertrand CLIA [id number] Eosinophils/100 WBC (Bld) 1.2 % Normal <=10.0 [facility] Comment on above: Performed By: #### G LUM #### [address] [place] [address] [employer] - Patricia Bertrand CLIA [id number] Erythrocyte distribution width (RBC) [Entitic vol] 37.4 fL Normal 36.4-46.3 [facility] Comment on above: Performed By: #### G LUM #### [address] [place] [address] [employer] - Patricia Bertrand CLIA [id number] Hematocrit (Bld) [Volume fraction] 40.7 % Normal 37.0-47.0 [facility] Comment on above: Performed By: #### G LUM #### [address] [place] [address] [employer] - Patricia Bertrand CLIA [id number] Hemoglobin (Bld) [Mass/Vol] 13.7 g/dL Normal 12.0-16.0 [facility] Comment on above: Performed By: #### G LUM #### [address] [place] [address] [employer] - Patricia Bertrand CLIA [id number] Immature granulocytes (Bld) [#/Vol] 0.01 10*3/uL Normal <=0.10 [facility] Comment on above: Performed By: #### G LUM #### [address] [place] [address] [employer] [facility] [id number] Immature granulocytes/100 WBC (Bld) 0.20 % Normal <=1.50 [facility] Comment on above: Performed By: #### G LUM #### [address] [place] [address] [employer] [facility] CL[facility] [id number] Lymphocytes (Bld) [#/Vol] 1.73 10*3/uL Normal 1.20-3.40 [facility] Comment on above: Performed By: #### G LUM #### [place] [address] [employer] [facility] CL[facility] [id number] Lymphocytes/100 WBC (Bld) 33.6 % Normal 20.0-40.0 [facility] Comment on above: Performed By: #### G LUM #### [place] [address] [employer] [facility] CL[facility] [id number] MCH (RBC) [Entitic mass] 27.7 pg Normal 27.0-31.0 [facility] Comment on above: Performed By: #### G LUM #### [place] [address] [employer] [facility] CL[facility] [id number] MCHC (RBC) [Mass/Vol] 33.7 g/dL Normal 32.0-36.0 [facility] Comment on above: Performed By: #### G LUM #### [place] [address] [employer]el Technician Mechanic - [facility] CLIA [id number] MCV (RBC) [Entitic vol] 82.2 fL Normal 80.0-100.0 [facility] Comment on above: Performed By: #### G LUM #### [address], [place] [address] [employer]ician [employer] - Patricia Bertrand CLIA [id number] Monocytes (Bld) [#/Vol] 0.48 10*3/uL Normal 0.10-0.60 [facility] Comment on above: Performed By: #### G LUM #### [address] [place] [address] [employer]el Technician Mechanic - Patriciakvng CochranBertrand CLIA [id number] Monocytes/100 WBC (Bld) 9.3 % High <=8.0 [facility] Comment on above: Performed By: #### G LUM #### [address] [place] [address] [employer]ician [employer]ic - Patricia Bertrand CLIA [id number] Neutrophils (Bld) [#/Vol] 2.84 10*3/uL Normal 1.40-6.50 [facility] Comment on above: Performed By: #### G LUM #### [place] [address] [employer] - Patriciakvng CochranBertrand CLIA [id number] Neutrophils/100 WBC (Bld) 55.1 % Normal 50.0-70.0 [facility] Comment on above: Performed By: #### G LUM #### [place] [address] [employer] - Patricia Bertrand CLIA [id number] Nucleated RBC (Bld) [#/Vol] 0.00 10*3/uL Normal <=0.10 [facility] Comment on above: Performed By: #### G LUM #### [place] [address] [employer]ic - Patriciakvng CochranBertrand CLIA [id number] Platelet mean volume (Bld) [Entitic vol] 10.0 fL Normal 9.0-13.0 [facility] Comment on above: Performed By: #### G LUM #### [place] [address] [employer] - Patricia Bertrand CLIA [id number] Platelets (Bld) [#/Vol] 212 10*3/uL Normal 130-400 [facility] Comment on above: Performed By: #### G LUM #### [facility] [address] [place] [address] [employer]ician [employer]ic - Patricia SÁNCHEZIA [id number] RBC (Bld) [#/Vol] 4.95 10*6/uL Normal 4.00-6.30 [facility] Comment on above: Performed By: #### G LUM #### [place] [address] [place] [address] [employer] Technician [employer]ic - Patricia SÁNCHEZIA [id number] WBC (Bld) [#/Vol] 5.15 10*3/uL Normal 4.80-10.80 [facility] Comment on above: Performed By: #### G LUM #### [address] [place] [address] [employer] Technician Mechanic - Patricia SÁNCHEZIA [id number] Comprehensive metabolic 2000 panelon 10-23-2020 Albumin [Mass/Vol] 3.8 g/dL Normal 3.4-5.0 [facility] Comment on above: Performed By: #### 3 040-3, 05345-3 #### [place] [address] [facility]. [place] [address] [employer] Technician [employer]ic - Patricia SÁNCHEZIA [id number] ALP [Catalytic activity/Vol] 68 U/L Normal 50-136 [facility] Comment on above: Performed By: #### 3 040-3, 96826-7 #### [place] [address] [facility]. [place] [address] [employer]ician [employer]ic - Patricia SÁNCHEZIA [id number] ALT [Catalytic activity/Vol] 23 U/L Normal 14-59 [facility] Comment on above: Performed By: #### 3 040-3, 80753-4 #### [facility] [address] [facility]. [place] [address] [employer]ician [employer]ic - Patricia SÁNCHEZIA [id number] Anion gap [Moles/Vol] 9.0 mmol/L Normal <=15.0 [facility] Comment on above: Performed By: #### 3 -3, #### [facility] [address] [place] [address] [employer]ician [employer]ic - Patricia Bertrand CLIA [id number] AST [Catalytic activity/Vol] 11 U/L Low 15-37 [facility] Comment on above: Performed By: #### 3 040-3, #### [facility] [address] [place] [address] [employer]ician [employer]ic - Patricia Bertrand CLIA [id number] Bilirubin [Mass/Vol] 0.4 mg/dL Normal 0.2-1.0 [facility] Comment on above: Performed By: #### 3 040-3, #### [facility] [address] [place] [address] [employer]el Technician Mechanic - Patricia Bertrand CLIA [id number] Calcium [Mass/Vol] 9.4 mg/dL Normal 8.5-10.1 [facility] Comment on above: Performed By: #### 3 -3, #### [facility] [address] [place] [address] [employer] Technician [employer]ic - Patricia Bertrand CLIA [id number] Chloride [Moles/Vol] 104 mmol/L Normal 98-107 [facility] Comment on above: Performed By: #### 3 040-3, #### [facility] [address] [place] [address] [employer] Technician [employer]ic - Patricia Bertrand CLIA [id number] CO2 [Moles/Vol] 27 mmol/L Normal 21-32 [facility] Comment on above: Performed By: #### 3 040-3, #### [facility] [address] [place] [address] [employer] Technician Mechanic - Patricia Bertrand CLIA [id number] Creatinine [Mass/Vol] 0.54 mg/dL Normal 0.51-0.95 [facility] Comment on above: Performed By: #### 3 040-3, 31170-6 #### [facility] [address] [place] [address] [employer]ician [employer]ic - Patricia YEPEZ [id number] GFR/1.73 sq M.predicted MDRD (S/P/Bld) [Vol rate/Area] mL/min/{1.73_m2} Normal >=59 [facility] Comment on above: Performed By: #### 3 040-3, 80105-2 #### [facility] [address] [place] [address] [employer] Technician [employer]ic - Patricia YEPEZ [id number] Glucose [Mass/Vol] 283 mg/dL High 74-106 [facility] Comment on above: Performed By: #### 3 040-3, 61986-4 #### [facility] [address] [place] [address] [employer]ician [employer]ic - Patricia YEPEZ [id number] HGFR GLOMERULAR FILTRATIO N RATE INTERPRETATION~The eGFR [...] months, with or without kidney damage.~ Normal [facility] Comment on above: Performed By: #### 3 040-3, 71246-3 #### [facility] [address] [place] [address] [employer] Technician Mechanic - Patricia YEPEZ [id number] Potassium [Moles/Vol] 3.7 mmol/L Normal 3.5-5.1 [facility] Comment on above: Performed By: #### 3 040-3, 87174-2 #### [facility] [address] [place] [address] [employer] Technician Mechanic - Patricia SÁNCHEZIA [id number] Protein [Mass/Vol] 7.3 g/dL Normal 6.4-8.2 [facility] Comment on above: Performed By: #### 3 040-3, 90910-0 #### [facility] [address] [place] [address] [employer]ician Mechanic - Patricia SÁNCHEZIA [id number] Sodium [Moles/Vol] 140 mmol/L Normal 136-145 [facility] Comment on above: Performed By: #### 3 -3, 32557-9 #### [facility] [address] [place] [address] [employer] Technician Mechanic - Patricia SÁNCHEZIA [id number] Urea nitrogen [Mass/Vol] 11 mg/dL Normal 7-17 [facility] Comment on above: Performed By: #### 3 040-3, 37304-2 #### [place] [address] [place] [address] [employer] Technician Mechanic - Patriciakvng SÁNCHEZIA [id number] Drugs identified Screen Nom (U)on 10-23-2020 Amphetamines Ql (U) Not detected Normal CUTOFF = 500 [facility] Comment on above: Performed By: #### 1 2286-1 #### [facility] [address] [facility]. [place] [address] [employer] Technician Mechanic - Patricia SÁNCHEZIA [id number] Barbiturates Ql (U) Not detected Normal CUTOFF = 200 [facility] Comment on above: Performed By: #### 1 2286-1 #### [place] [address] [place] [address] [employer] Technician Mechanic - Patriciakvng SÁNCHEZIA [id number] Benzodiazepines Ql (U) Not detected Normal CUTOF F = 150 [facility] Comment on above: Performed By: #### 1 2286-1 #### [facility] [address] [place] [address] [employer] Technician Mechanic - Patriciakvng SÁNCHEZIA [id number] Cocaine Ql (U) Not detected Normal CUTOFF = 150 [facility] Comment on above: Performed By: #### 1 2286-1 #### [facility] [address] [place] [address] [employer] Technician Mechanic - Patricia YEPEZ [id number] [facility] Drugs of abuse alecia lance provides only a preliminary analytical test result. A more specific alternate chemical method must be used in order to obtain a confimed analytical result. Clinical consideration and professional judgment should be applied to any drug of abuse test result, particularly when preliminary positive results are obtained. Normal [facility] Comment on above: Performed By: #### 1 2286-1 #### [facility] [address] [place] [address] [employer]ician [employer]ic - Patricia YEPEZ [id number] Methadone Ql (U) Not detected Normal CUTOFF = 200 [facility] Comment on above: Performed By: #### 1 2286-1 #### [facility] [address] [place] [address] [employer]ician [employer]ic - Patricia YEPEZ [id number] Opiates Ql (U) Not detected Normal CUTOFF = 300 [facility] Comment on above: Performed By: #### 1 2286-1 #### [facility] [address] [place] [address] [employer]ician [employer]ic - Patricia YEPEZ [id number] oxyCODONE Ql (U) Not detected Normal CUTOFF = 100 [facility] Comment on above: Performed By: #### 1 2286-1 #### [facility] [address] [place] [address] [employer] Technician Mechanic - Patricia SÁNCHEZIA [id number] Phencyclidine Ql (U) Not detected Normal CUTOFF = 25 [facility] Comment on above: Performed By: #### 1 2286-1 #### [facility] [address] [place] [address] [employer] Technician [employer]ic - Patricia YEPEZ [id number] Tetrahydrocannabinol Ql (U) Not detected Normal CUTOFF = 50 [facility] Comment on above: Performed By: #### 1 2286-1 #### [facility] [address] [place] [address] [employer]ician [employer]ic - Patricia YEPEZ [id number] LIPASEon 10-23-2020 Lipase [Catalytic activity/Vol] 168 U/L Normal 73-393 [facility] Comment on above: Performed By: #### 3 040-3, 34044-1 #### [facility] [address] [facility]. [place] [address] [employer] [facility] [id number] URINALYSIS with reflex to CU LTUREon 10-23-2020 Bacteria LM.HPF (Urine sed) [#/Area] Negative Normal TRACE [facility] Comment on above: Performed By: #### G LUM #### [facility] [address] [place] [address] [employer] Technician [employer] [facility] [id number] Bilirubin Ql (U) Negative Normal NEGATIVE [facility] Comment on above: Performed By: #### G LUM #### [facility] [address] [place] [address] [employer] [facility] [id number] CALCIUM OXALATES MODERATE Abnormal FEW [facility] Comment on above: Performed By: #### G LUM #### [facility] [address] [place] [address] [employer] [facility] [id number] Clarity (U) CLOUDY Abnormal CLEAR [facility] Comment on above: Performed By: #### G LUM #### [facility] [address] [place] [address] [employer]ician [employer] [facility] [id number] Color (U) [place] Abnormal YELLOW [facility] Comment on above: Performed By: #### G LUM #### [facility] [address] [place] [address] Diesel Technician Mechanic - [facility] CLIA [id number] Glucose Ql (U) 4+ Abnormal NEGATIVE [facility] Comment on above: Performed By: #### G LUM #### [facility] [address] [place] [address] [employer]ician [employer] [facility] [id number] Hemoglobin Ql (U) 3+ Abnormal NEGATIVE [facility] Comment on above: Performed By: #### G LUM #### [facility] [address] [place] [address] [employer]el Technician Mechanic - [facility] [id number] HMICRO AUTOMATED MICROSCOPIC Normal [facility] Comment on above: Performed By: #### G LUM #### [facility] [address] [place] [address] [employer]el Technician [employer]ic - [facility] [id number] Hyaline casts (Urine sed) [#/Area] 10-20 Abnormal 0-8 [facility] Comment on above: Performed By: #### G LUM #### [facility] [address] [place] [address] [employer] Technician Mechanic - [place] [id number] KETONE TRACE Abnormal NEGATIVE [facility] Comment on above: Performed By: #### G LUM #### [facility] [address] [place] [address] [employer] Technician [employer]ic - [place] [id number] Leukocyte esterase Test strip Ql (U) 2+ Abnormal TRACE [facility] Comment on above: Performed By: #### G LUM #### [facility] [address] [place] [address] [employer]ician [employer]ic - [place] [id number] MUCOUS TRACE Normal TRACE [facility] Comment on above: Performed By: #### G LUM #### [facility] [address] [place] [address] [employer]ician [employer]ic - [place] [id number] Nitrite Ql (U) Negative Normal NEGATIVE [facility] Comment on above: Performed By: #### G LUM #### [facility] [address] [place] [address] [employer]ician [employer]ic - [place] [id number] pH (U) 6.0 [pH] Normal 5.5-7.5 [facility] Comment on above: Performed By: #### G LUM #### [facility] [address] [place] [address] [employer]ician [employer] - [place] [id number] Protein Ql (U) 1+ Abnormal NEGATIVE [facility] Comment on above: Performed By: #### G LUM #### [address] [place] [address] [employer]el Technician Mechanic - Patricia YEPEZ [id number] RBC LM.HPF (Urine sed) [#/Area] /[HPF] Abnormal 0-4 [facility] Comment on above: Performed By: #### G LUM #### [place] [address] [employer] - Patricia YEPEZ [id number] Specific gravity (U) [Rel density] 1.041 High 1.010-1.03 5 [facility] Comment on above: Performed By: #### G LUM #### [place] [address] [employer] - Patricia Jerzy YEPEZ [id number] SQUAMOUS EPITHELIALS 10-15 Abnormal 0-5 [facility] Comment on above: Performed By: #### G LUM #### [place] [address] [employer] - Patricia YEPEZ [id number] Transitional cells LM.LPF (Urine sed) [#/Area] 0-5 Abnormal NONE SEEN [facility] Comment on above: Performed By: #### G LUM #### [place] [address] [employer] - Patricia YEPEZ [id number] Urobilinogen Qn (U) 1.0 {Diaz'U}/dL Normal <=1.0 [facility] Comment on above: Performed By: #### G LUM #### [place] [address] [employer] - Patricia YEPEZ [id number] WBC LM.HPF (Urine sed) [#/Area] 100-900 Abnormal 0-5 [facility] Comment on above: Performed By: #### G LUM #### [place] [address] [employer] - Patricia YEPEZ [id number] Basic metabolic 1998 panelOr dered By: Vesna Patrick on 10-18-2020 Anion gap [Moles/Vol] 15 mmol/L 10 - 2 0 mmol/L [facility] Chloride [Moles/Vol] 103 mmol/L 98 - 10 8 mmol/L [facility] Creatinine [Mass/Vol] 0.81 mg/dL 0.40 - 1.10 [facility] GFR/1.73 sq M.predicted CKD-EPI (S/P/Bld) [Vol rate/Area] 88 >=60 mL/min/1.7 3 m2 [facility] Glucose [Mass/Vol] 286 mg/dL High 65 - 99 mg/dL [facility] HCO3 [Moles/Vol] 25 mmol/L 21 - 32 mmol/L [facility] Interpretation and review of laboratory results Abnormal [facility] Potassium [Moles/Vol] 3.5 mmol/L 3.5 - 5.1 mmol/L [facility] Sodium [Moles/Vol] 139 mmol/L 135 - 145 mmol/L [facility] Urea nitrogen [Mass/Vol] 12 mg/dL 8 - 25 mg/dL [facility] Urea nitrogen/Creatinine [Mass ratio] 14.8 mg/mg [facility] The eGFR should be u sed for monitoring renal function only and not for medication dosing. [facility] CBC WITH AUTO DIFFERENTIALOr dered By: Vesna Patrick on 10-18-2020 Basophils (Bld) [#/Vol] 0.03 10*3/uL [facility] Basophils/100 WBC (Bld) 0.6 % [facility] Eosinophils (Bld) [#/Vol] 0.11 10*3/uL [facility] Eosinophils/100 WBC (Bld) 2.0 % [facility] Erythrocyte distribution width (RBC) [Entitic vol] 12.7 % 11.6 - 14.8 % [facility] Hematocrit (Bld) [Volume fraction] 38.0 % 36.0 - 46.0 % [facility] Hemoglobin (Bld) [Mass/Vol] 12.5 g/dL 12.0 - 16.0 g/dL [facility] Immature granulocytes (Bld) [#/Vol] 0.01 10*3/uL [facility] Immature granulocytes/100 WBC (Bld) 0.20 % [facility] Comment on above: The IG parameter is the percentage of metamyelocytes, myelocytes and promyelocytes. An immature granulocyte count (IG) of 1% or more suggests the possibility of infection, an IG count of 3% is very likely related to an infection. Lymphocytes (Bld) [#/Vol] 1.80 10*3/uL [facility] Lymphocytes/100 WBC (Bld) 33.2 % [facility] MCH (RBC) [Entitic mass] 27.7 pg 26.0 - 34.0 pg [facility] MCHC (RBC) [Mass/Vol] 32.9 g/dL 31.0 - 37.0 g/dL [facility] MCV (RBC) [Entitic vol] 84.1 fL 80.0 - 100.0 fL [facility] Monocytes (Bld) [#/Vol] 0.50 10*3/uL [facility] Monocytes/100 WBC (Bld) 9.2 % [facility] Neutrophils (Bld) [#/Vol] 2.97 10*3/uL [facility] Neutrophils/100 WBC (Bld) 54.8 % [facility] Nucleated RBC (Bld) [#/Vol] 0.00 10*3/uL [facility] Nucleated RBC/100 WBC (Bld) [Ratio] 0.0 % [facility] Platelet mean volume (Bld) [Entitic vol] 10.1 fL 9.4 - 12.4 fL [facility] Platelets (Bld) [#/Vol] 194 10*3/uL [facility] RBC (Bld) [#/Vol] 4.52 10*6/uL [facility] WBC (Bld) [#/Vol] 5.42 10*3/uL [facility] eah COVID-19/Influenza A,B Molec ularOrdered By: Vensa Patrick on 10-18-2020 SARS-CoV-2 (COVID-19) RNA JENNIFER+probe Ql (Resp) Not detected Not Detected [facility] D-DIMER, QUANTITATIVEOrdered By: Vesna Patrick on 10-18-2020 Fibrin D-dimer FEU (PPP) [Mass/Vol] 1.01 High 0.27 - 0.49 mcg/mL FEU [facility] Interpretation and review of laboratory results Abnormal [facility] A D-dimer concentrat ion of <0.5 micrograms per milliliter FEU is considered a low probability for pulmonary embolus (PE) and deep venous thrombosis (DVT). Results of this test should always be interpreted in conjunction with the patient's medical history,clinical presentation, and other findings. Clinical diagnosis should not be based on the results of the D-dimer alone. [facility] DRUGS OF ABUSE SCREEN, URINE Ordered By: Vesna Patrick on 10-18-2020 Amphetamines Ql (U) Not detected None Detected [facility] Comment on above: Urine Amphetamine Cu toff: < 1000 ng/mL = None Detected Barbiturates Screen Ql (U) Not detected None Detected [facility] Comment on above: Urine Barbiturates C utoff: < 200 ng/mL = None Detected Benzodiazepines Ql (U) Not detected None Detected [facility] Comment on above: Urine Benzodiazepine Cutoff: < 200 ng/mL = None Detected Cannabinoids Screen Ql (U) Not detected None Detected [facility] Comment on above: Urine Cannabinoids C utoff: < 50 ng/mL = None Detected Cocaine Ql (U) Not detected None Detected [facility] Comment on above: Urine Cocaine Cutoff : < 300 ng/mL = None Detected Interpretation and review of laboratory results Normal [facility] Methadone Screen Ql (U) Not detected None Detected [facility] Comment on above: Urine Methadone Cuto ff: < 300 ng/mL = None Detected Opiates Screen Ql (U) Not detected None Detected [facility] Comment on above: Urine Opiates Cutoff : < 300 ng/mL = None Detected oxyCODONE Ql (U) Not detected None Detected [facility] Comment on above: Urine Oxycodone Cuto ff: < 100 ng/mL = None Detected Screen results shoul d be used for treatment purposes only. [facility] ECG 12-LEADOrdered By: Vesna Patrick on 10-18-2020 Atrial Rate 114 BPM [facility] P [place] 64 degrees [facility] P-R Interval 120 ms [facility] Q-T Interval 338 ms [facility] QRS Duration 90 ms [facility] QTC Calculation (Bezet) 465 ms [facility] R [place] 12 degrees [facility] T [place] 52 degrees [facility] Ventricular Rate 114 BPM [facility] th Sinus tachycardia Otherwise normal ECG ECG Cart Interpretation see physician note for interpretation. Confirmed by Doni Mahan ([id number]) on 10/18/2020 7:21:51 PM [facility] Hepatic function 2000 panelO rdered By: Vesna Patrick on 10-18-2020 Albumin [Mass/Vol] 3.6 g/dL 3.2 - 5.2 g/dL [facility] ALP [Catalytic activity/Vol] 76 U/L 40 - 150 U/L [facility] ALT [Catalytic activity/Vol] 24 U/L 14 - 65 U/L [facility] AST [Catalytic activity/Vol] 12 U/L 0 - 45 U/L [facility] Bilirubin [Mass/Vol] 0.4 mg/dL 0.0 - 1 .3 mg/dL [facility] Bilirubin.conjugated [Mass/Vol] mg/dL 0.0 - 0.4 mg/dL [facility] Protein [Mass/Vol] 7.1 g/dL 6.0 - 8.0 g/dL [facility] INR Coag (PPP) [Relative debbie e]Ordered By: Vesna Patrick on 10-18-2020 Interpretation and review of laboratory results Normal [facility] PT Coag (PPP) [Time] 12.5 s [facility] During the induction phase of oral anticoagulation, the INR may not reflect the anticoagulation status of the patient. Therapeutic ranges for INR's are: Most clinical situations: INR 2.0-3.0 Mechanical Prosthetic Valve: INR 2.5-3.5 Critical: INR >5.0 [facility] LipaseOrdered By: Vesna Garzon lod on 10-18-2020 Lipase [Catalytic activity/Vol] 132 U/L 73 - 393 U/L [facility] No Panel InformationOrdered By: Triage Emergency on 10-18-2020 Extra Tube Hold for add-ons. [facility] Comment on above: Auto resulted. No Panel InformationOrdered By: Vesna Patrick on 10-18-2020 Interpretation and review of laboratory results Normal [facility] PT/INROrdered By: Vesna frost on 10-18-2020 INR Coag (PPP) [Relative time] 1.0 {INR} [facility] SARS-CoV-2 (COVID-19) RNA NA A+probe Ql (Resp)Ordered By: Vesna Patrick on 10-18-2020 Influenza A Not detected Not Detected [facility] Influenza B Not detected Not Detected [facility] Interpretation and review of laboratory results Normal [facility] This test was perfor med under the [...] the following links: For Healthcare Providers: https://www.fda.gov/media /291618/download For Patients: https://www.fda.gov/media /503504/download [facility] TROPONINOrdered By: Vesna Harp christianealfredo on 10-18-2020 Troponin I Interpretation Normal [facility] Troponin I.cardiac [Mass/Vol] ng/mL <=45 ng/L [facility] XR CHEST AP/PA AND LATOrdere d By: Vesna Patrick on 10-18-2020 Lungs are clear. No acute cardiopulmonary disease. Workstation ID: [id number] [facility] EXAMINATION: XR CHES T AP/PA AND LAT [...] The cardiomediastinal silhouette is within normal limits. [facility] Jenn, Delfino In Fu ji Speechq - 10/18/2020 9:07 [...] No acute cardiopulmonary disease. Workstation ID: [id number] [facility] Basic metabolic 2000 panelOr dered By: Esmer Tamayo on 10-16-2020 Anion gap [Moles/Vol] 12 mmol/L 10 - 2 0 mmol/L [facility] Calcium [Mass/Vol] 9.4 mg/dL 8.4 - 10. 2 mg/dL [facility] Chloride [Moles/Vol] 106 mmol/L 98 - 10 8 mmol/L [facility] Creatinine [Mass/Vol] 0.99 mg/dL 0.40 - 1.10 [facility] GFR/1.73 sq M.predicted CKD-EPI (S/P/Bld) [Vol rate/Area] 69 >=60 mL/min/1.7 3 m2 [facility] Glucose [Mass/Vol] 334 mg/dL High 65 - 99 mg/dL [facility] HCO3 [Moles/Vol] 25 mmol/L 21 - 32 mmol/L [facility] Potassium [Moles/Vol] 3.6 mmol/L 3.5 - 5.1 mmol/L [facility] Sodium [Moles/Vol] 139 mmol/L 135 - 145 mmol/L [facility] Urea nitrogen [Mass/Vol] 12 mg/dL 8 - 25 mg/dL [facility] Urea nitrogen/Creatinine [Mass ratio] 12.1 mg/mg [facility] The eGFR should be u sed for monitoring renal function only and not for medication dosing. [facility] Beta HCG ( test) Ql Ordered By: Esmer Tamayo on 10-16-2020 Negative: The result is less than or equal to 5 mIU/mL of HCG. [facility] Beta-HydroxybutyrateOrdered By: Esmer Tamayo on 10-16-2020 Beta hydroxybutyrate [Moles/Vol] 0.1 mmol/L 0.0 - 0.3 mmol/L [facility] CBC WITH AUTO DIFFERENTIALOr dered By: Esmer Tamayo on 10-16-2020 Basophils (Bld) [#/Vol] 0.04 10*3/uL [facility] Basophils/100 WBC (Bld) 0.8 % [facility] Eosinophils (Bld) [#/Vol] 0.08 10*3/uL [facility] Eosinophils/100 WBC (Bld) 1.6 % [facility] Erythrocyte distribution width (RBC) [Entitic vol] 12.8 % 11.6 - 14.8 % [facility] Hematocrit (Bld) [Volume fraction] 40.6 % 36.0 - 46.0 % [facility] Hemoglobin (Bld) [Mass/Vol] 13.5 g/dL 12.0 - 16.0 g/dL [facility] Immature granulocytes (Bld) [#/Vol] 0.01 10*3/uL [facility] Immature granulocytes/100 WBC (Bld) 0.20 % [facility] Comment on above: The IG parameter is the percentage of metamyelocytes, myelocytes and promyelocytes. An immature granulocyte count (IG) of 1% or more suggests the possibility of infection, an IG count of 3% is very likely related to an infection. Lymphocytes (Bld) [#/Vol] 1.66 10*3/uL [facility] Lymphocytes/100 WBC (Bld) 32.2 % [facility] MCH (RBC) [Entitic mass] 27.7 pg 26.0 - 34.0 pg [facility] MCHC (RBC) [Mass/Vol] 33.3 g/dL 31.0 - 37.0 g/dL [facility] MCV (RBC) [Entitic vol] 83.4 fL 80.0 - 100.0 fL [facility] Monocytes (Bld) [#/Vol] 0.45 10*3/uL [facility] Monocytes/100 WBC (Bld) 8.7 % [facility] Neutrophils (Bld) [#/Vol] 2.92 10*3/uL [facility] Neutrophils/100 WBC (Bld) 56.5 % [facility] Nucleated RBC (Bld) [#/Vol] 0.00 10*3/uL [facility] Nucleated RBC/100 WBC (Bld) [Ratio] 0.0 % [facility] Platelet mean volume (Bld) [Entitic vol] 9.7 fL 9.4 - 12.4 fL [facility] Platelets (Bld) [#/Vol] 222 10*3/uL [facility] RBC (Bld) [#/Vol] 4.87 10*6/uL [facility] WBC (Bld) [#/Vol] 5.16 10*3/uL [facility] Abdomen Pelvis With IV Co ntrast OnlyOrdered By: Esmer Tamayo on 10-16-[address] scan of the abdomen and pelvis. 2. Bilateral nephrolithiasis without hydronephrosis or ureteral stone. No inflammation is noted the kidneys, ureters or bladder. 3. Mild fatty changes of the liver. The gallbladder has been removed. Workstation ID: [id number] [facility] EXAMINATION: CT ABDO MEN PELVIS WITH IV [...] lesions or advanced degenerative changes are noted. [facility], Rad In Fu ji Speechq - 10/16/2020 [...] gallbladder has been removed. Workstation ID: [id number] [facility] CT HEAD OR BRAIN WITHOUT CON TRASTOrdered By: Esmer Tamayo on 10-16-2020 Negative for acute intracranial hemorrhage or acute intracranial process. Workstation ID: [id number] [facility] EXAMINATION: CT HEAD OR BRAIN WITHOUT CONTRAST [...] There are no abnormal extraaxial fluid collections. [facility], Rad In Fu ji Speechq - 10/16/2020 10:44 [...] or acute intracranial process. Workstation ID: [id number] [facility] ECG 12-LEADOrdered By: Lynnette Beth on 10-16-2020 Atrial Rate 126 BPM [facility] P [place] 52 degrees [facility] P-R Interval 148 ms [facility] Q-T Interval 312 ms [facility] QRS Duration 88 ms [facility] QTC Calculation (Bezet) 451 ms [facility] R [place] -3 degrees [facility] T [place] 50 degrees [facility] Ventricular Rate 126 BPM [facility] th Sinus tachycardia Possible Left atrial enlargement Borderline ECG ECG Cart Interpretation see physician note for interpretation. Confirmed by Alyse Zhang ([id number]) on 10/16/2020 10:04:37 PM [facility] Gold TopOrdered By: Lynnette carter on 10-16-2020 Extra Tube Hold for add-ons. [facility] Comment on above: Auto resulted. HCG (QUALITATIVE)Ordered By: Esmer Tamayo on 10-16-2020 Beta HCG ( test) Ql Negative Negative [facility] Hepatic function 2000 panelO rdered By: Esmer Tamayo on 10-16-2020 Albumin [Mass/Vol] 4.1 g/dL 3.2 - 5.2 g/dL [facility] ALP [Catalytic activity/Vol] 86 U/L 40 - 150 U/L [facility] ALT [Catalytic activity/Vol] 26 U/L 14 - 65 U/L [facility] AST [Catalytic activity/Vol] 11 U/L 0 - 45 U/L [facility] Bilirubin [Mass/Vol] 0.4 mg/dL 0.0 - 1 .3 mg/dL [facility] Bilirubin.conjugated [Mass/Vol] 0.1 mg/dL 0.0 - 0.4 mg/dL [facility] Protein [Mass/Vol] 8.0 g/dL 6.0 - 8.0 g/dL [facility] INR Coag (PPP) [Relative debbie e]Ordered By: Esmer Tamayo on 10-16-2020 Interpretation and review of laboratory results Normal [facility] PT Coag (PPP) [Time] 11.8 s [facility] During the induction phase of oral anticoagulation, the INR may not reflect the anticoagulation status of the patient. Therapeutic ranges for INR's are: Most clinical situations: INR 2.0-3.0 Mechanical Prosthetic Valve: INR 2.5-3.5 Critical: INR >5.0 [facility] Lactate [Moles/Vol]Ordered B y: Esmer Tamayo on 10-16-2020 Interpretation and review of laboratory results Abnormal [facility] Lactic Acid, PlasmaOrdered B y: Esmer Tamayo on 10-16-2020 Lactate [Moles/Vol] 3.1 mmol/L High 0.6 - 2. 0 mmol/L [facility] LipaseOrdered By: Esmer manzanares on 10-16-2020 Lipase [Catalytic activity/Vol] 215 U/L 73 - 393 U/L [facility] NT Pro BNPOrdered By: Esmer padron on 10-16-2020 Natriuretic peptide.B prohormone N-Terminal [Mass/Vol] 17 pg/mL 0 - 300 pg/mL [facility] Natriuretic peptide.B prohor elaina N-Terminal [Mass/Vol]Ordered By: Esmer Tamayo on 10-16-2020 Pride Study Cut-offs Rule In: < /= 50 Years >450 pg/mL 51 Years - 75 Years >900 pg/mL 76 Years - 99 Years >1800 pg/mL Rule Out: All patients <300 pg/mL [facility] No Panel InformationOrdered By: Esmer Tamayo on 10-16-2020 Interpretation and review of laboratory results Abnormal [facility] Interpretation and review of laboratory results Normal [facility] PT/INROrdered By: Esmer Gray er on 10-16-2020 INR Coag (PPP) [Relative time] 0.9 {INR} [facility] TROPONINOrdered By: Esmer Loving tter on 10-16-2020 Interp Troponin I Delta Change No biomarker evidence of cardiac injury. [facility] Troponin I.cardiac [Mass/Vol] ng/mL <=45 ng/L [facility] Troponin I Interpretation Normal [facility] Troponin I.cardiac [Mass/Vol] ng/mL <=45 ng/L [facility] URINALYSISOrdered By: Esmer padron on 10-16-2020 Bacteria Auto Ql (U) None Seen None Se en /hpf [facility] Clarity Refractometry automated (U) Clear Clear [facility] Color (U) Colorless Colorless, Yellow [facility] Glucose Auto test strip (U) [Mass/Vol] >=500 Abnormal Negative mg/dL [facility] Ketones (U) [Mass/Vol] Trace Abnormal Negat isabella mg/dL [facility] Leukocyte esterase Auto test strip Ql (U) Negative Negative [facility] h pH (U) 5.5 [pH] [facility] Specific gravity (U) [Rel density] 1.044 High [facility] UrinalysisOrdered By: Esmer padron on 10-16-2020 Bilirubin Ql (U) Negative Negative [facility] Epithelial cells.squamous Auto (Urine sed) [#/Area] <1 [facility] Hemoglobin Auto test strip Ql (U) Small Abnormal Negative [facility] Mucus Auto (Urine sed) [#/Area] Rare None Seen, Rare /lpf [facility] Nitrite Auto test strip Ql (U) Negative Negative [facility] Protein (U) [Mass/Vol] Negative Negat isabella mg/dL [facility] RBC Auto (Urine sed) [#/Area] 17 High [facility] Urobilinogen (U) [Mass/Vol] mg/dL <2.0 mg/dL [facility] WBC Auto (Urine sed) [#/Area] 1 [facility] Microscopic examinat ion is performed on all urinalysis samples and only positive findings are reported. The test for blood on the chemical analytic portion of urinalysis may also be positive due to hemoglobinuria and myoglobinuria and if red blood cells are present they are quantified by microscopic examination. [facility] XR Chest 1 ViewOrdered By: Jered Tamayo on 10-16-2020 Minimal left basilar atelectasis without focal airspace consolidation. Workstation ID: [id number] [facility] EXAMINATION: XR CHES T PA/AP 10/16/2020 7:55 [...] No acute osseous or soft tissue abnormalities. [facility] Interface, Rad In Fu ji Speechq - [...] without focal airspace consolidation. Workstation ID: [id number] [facility] CBC W Auto Differential pane l (Bld)on 10-12-2020 Basophils (Bld) [#/Vol] 0.05 10*3/uL Normal <=0.70 [facility] Comment on above: Performed By: #### G LUM #### [facility] [address] [place], [place] [address] [employer] - Patricia YEPEZ [id number] Basophils/100 WBC (Bld) 0.9 % Normal <=2.0 [facility] Comment on above: Performed By: #### G LUM #### [address] Director - [facility] CLIA [id number] Eosinophils (Bld) [#/Vol] 0.03 10*3/uL Normal <=0.70 [facility] Comment on above: Performed By: #### G LUM #### [address] Director - [facility] CLIA [id number] Eosinophils/100 WBC (Bld) 0.5 % Normal <=10.0 [facility] Comment on above: Performed By: #### G LUM #### [address] Director - [facility] CLIA [id number] Erythrocyte distribution width (RBC) [Entitic vol] 37.7 fL Normal 36.4-46.3 [facility] Comment on above: Performed By: #### G LUM #### [address] - [facility] CLIA [id number] Hematocrit (Bld) [Volume fraction] 39.4 % Normal 37.0-47.0 [facility] Comment on above: Performed By: #### G LUM #### [address] Director - [facility] CLIA [id number] Hemoglobin (Bld) [Mass/Vol] 13.5 g/dL Normal 12.0-16.0 [facility] Comment on above: Performed By: #### G LUM #### [address] - [facility] CLIA [id number] Immature granulocytes (Bld) [#/Vol] 0.01 10*3/uL Normal <=0.10 [facility] Comment on above: Performed By: #### G LUM #### [place] [address] [place] [address] [employer] - Patricia Bertrand CLIA [id number] Immature granulocytes/100 WBC (Bld) 0.20 % Normal <=1.50 [facility] Comment on above: Performed By: #### G LUM #### [address] [place] [address] [employer] - Patricia Bertrand CLIA [id number] Lymphocytes (Bld) [#/Vol] 1.85 10*3/uL Normal 1.20-3.40 [facility] Comment on above: Performed By: #### G LUM #### [address] [place] [address] [employer] - Patricia Bertrand CLIA [id number] Lymphocytes/100 WBC (Bld) 31.7 % Normal 20.0-40.0 [facility] Comment on above: Performed By: #### G LUM #### [address] [place] [address] [employer] - Patricia Bertrand CLIA [id number] MCH (RBC) [Entitic mass] 28.1 pg Normal 27.0-31.0 [facility] Comment on above: Performed By: #### G LUM #### [address] [place] [address] [employer] - Patricia Bertrand CLIA [id number] MCHC (RBC) [Mass/Vol] 34.3 g/dL Normal 32.0-36.0 [facility] Comment on above: Performed By: #### G LUM #### [address] [place] [address] [employer] - Patricia Bertrand CLIA [id number] MCV (RBC) [Entitic vol] 82.1 fL Normal 80.0-100.0 [facility] Comment on above: Performed By: #### G LUM #### [address] [place] [address] [employer] - Patricia Bertrand CLIA [id number] Monocytes (Bld) [#/Vol] 0.57 10*3/uL Normal 0.10-0.60 [facility] Comment on above: Performed By: #### G LUM #### [place] [address] [employer]ic - [facility] CLIA [id number] Monocytes/100 WBC (Bld) 9.8 % High <=8.0 [facility] Comment on above: Performed By: #### G LUM #### [place] [address] [employer] - [facility] CLIA [id number] Neutrophils (Bld) [#/Vol] 3.33 10*3/uL Normal 1.40-6.50 [facility] Comment on above: Performed By: #### G LUM #### [place] [address] [employer] - [facility] CLIA [id number] Neutrophils/100 WBC (Bld) 56.9 % Normal 50.0-70.0 [facility] Comment on above: Performed By: #### G LUM #### [address] Director - [facility] CLIA [id number] Nucleated RBC (Bld) [#/Vol] 0.00 10*3/uL Normal <=0.10 [facility] Comment on above: Performed By: #### G LUM #### [place] [address] [employer]ic - [facility] CLIA [id number] Platelet mean volume (Bld) [Entitic vol] 9.9 fL Normal 9.0-13.0 [facility] Comment on above: Performed By: #### G LUM #### [place] [address] [employer] Mechanic - [facility] CLIA [id number] Platelets (Bld) [#/Vol] 219 10*3/uL Normal 130-400 [facility] Comment on above: Performed By: #### G LUM #### [address] [place], [place] [address] [employer] Technician [employer]ic - Patricia Cochranrell PRINCESSIA [id number] RBC (Bld) [#/Vol] 4.80 10*6/uL Normal 4.00-6.30 [facility] Comment on above: Performed By: #### G LUM #### [facility] [address] [place] [address] [employer]el Technician Mechanic [facility] [id number] WBC (Bld) [#/Vol] 5.84 10*3/uL Normal 4.80-10.80 [facility] Comment on above: Performed By: #### G LUM #### [facility] [address] [place] [address] [employer] Technician Mechan[employer] [id number] ABDOMEN AND PELVIS WITHOU T CONTRASTon [...] Please clinically correlate for pulmonary symptoms. Normal [facility] Comprehensive metabolic 2000 panelon 10-12-2020 Albumin [Mass/Vol] 4.0 g/dL Normal 3.4-5.0 [facility] Comment on above: Performed By: #### 3 040-3, 79598-9 #### [facility] [address] [place] [address] [employer]ician [employer]ic [facility] PRINCESSIA [id number] ALP [Catalytic activity/Vol] 85 U/L Normal 50-136 [facility] Comment on above: Performed By: #### 3 040-3, 48459-4 #### [facility] [address] [place] [address] [employer]el Technician Mechanic [facility] CLIA [id number] ALT [Catalytic activity/Vol] 27 U/L Normal 14-59 [facility] Comment on above: Performed By: #### 3 040-3, 64300-6 #### [facility] [address] [place] [address] [employer]ic - Patricia SÁNCHEZIA [id number] Anion gap [Moles/Vol] 6.0 mmol/L Normal <=15.0 [facility] Comment on above: Performed By: #### 3 040-3, 76497-1 #### [facility] [address] [facility]. [place] [address] [employer] Technician [employer]ic - Patricia Cochranrell LUCHO [id number] AST [Catalytic activity/Vol] 21 U/L Normal 15-37 [facility] Comment on above: Result Comment: Spec imen slightly hemolyzed. Test results may be affected. Performed By: #### 3 -3, #### [facility] [address] [place] [address] [employer] - Patricia SÁNCHEZIA [id number] Bilirubin [Mass/Vol] 0.5 mg/dL Normal 0.2-1.0 [facility] Comment on above: Performed By: #### 3 -3, 48592-1 #### [facility] [address] [place] [address] [employer]ician [employer]ic - Patricia SÁNCHEZIA [id number] Calcium [Mass/Vol] 9.9 mg/dL Normal 8.5-10.1 [facility] Comment on above: Performed By: #### 3 040-3, #### [place] [address] [place] [address] [employer]ic - Patricia SÁNCHEZIA [id number] Chloride [Moles/Vol] 102 mmol/L Normal 98-107 [facility] Comment on above: Performed By: #### 3 -3, #### [facility] [address] [place] [address] [employer]ic - Patricia SÁNCHEZIA [id number] CO2 [Moles/Vol] 30 mmol/L Normal 21-32 [facility] Comment on above: Performed By: #### 3 -3, #### [facility] [address] [place] [address] [employer]ic - Patricia SÁNCHEZIA [id number] Creatinine [Mass/Vol] 0.62 mg/dL Normal 0.51-0.95 [facility] Comment on above: Performed By: #### 3 040-3, 67596-0 #### [facility] [address] [place] [address] [employer]ician Mechanic - Patricia Bertrand CLIA [id number] GFR/1.73 sq M.predicted MDRD (S/P/Bld) [Vol rate/Area] mL/min/{1.73_m2} Normal >=59 [facility] Comment on above: Performed By: #### 3 -3, 83586-3 #### [facility] [address] [place] [address] [employer]ic - Patricia YEPEZ [id number] Glucose [Mass/Vol] 383 mg/dL High 74-106 [facility] Comment on above: Performed By: #### 3 -3, 59378-6 #### [facility] [address] [place] [address] [employer] - Patricia YEPEZ [id number] HGFR GLOMERULAR FILTRATIO N RATE INTERPRETATION~The eGFR [...] months, with or without kidney damage.~ Normal [facility] Comment on above: Performed By: #### 3 040-3, 44303-6 #### [facility] [address] [place] [address] [employer] - Patricia YEPEZ [id number] Potassium [Moles/Vol] 3.9 mmol/L Normal 3.5-5.1 [facility] Comment on above: Result Comment: Spec imen slightly hemolyzed. Test results may be affected. Performed By: #### 3 040-3, 63433-4 #### [facility] [address] [place] [address] [employer]ic - Patricia YEPEZ [id number] Protein [Mass/Vol] 7.9 g/dL Normal 6.4-8.2 [facility] Comment on above: Performed By: #### 3 040-3, 94553-4 #### [facility] [address] [place] [address] [employer]ic - Patricia SÁNCHEZIA [id number] Sodium [Moles/Vol] 138 mmol/L Normal 136-145 [facility] Comment on above: Performed By: #### 3 040-3, 19812-9 #### [facility] [address] [place] [address] [employer] - Patricia SÁNCHEZIA [id number] Urea nitrogen [Mass/Vol] 12 mg/dL Normal 7-17 [facility] Comment on above: Performed By: #### 3 040-3, 61094-0 #### [facility] [address] [place] [address] [employer] - Patricia SÁNCHEZIA [id number] LIPASEon 10-12-2020 Lipase [Catalytic activity/Vol] 190 U/L Normal 73-393 [facility] Comment on above: Performed By: #### 3 -3, #### [facility] [address] [place] [address] [employer] - Patricia SÁNCHEZIA [id number] URINALYSIS with reflex to CU LTUREon 10-12-2020 Bacteria LM.HPF (Urine sed) [#/Area] Negative Normal TRACE [facility] Comment on above: Performed By: #### G LUM #### [facility] [address] [place] [address] [employer]ic - Patricia SÁNCHEZIA [id number] Bilirubin Ql (U) Negative Normal NEGATIVE [facility] Comment on above: Performed By: #### G LUM #### [facility] [address] [place] [address] [employer] Technician [employer]ic - Patricia SÁNCHEZIA [id number] Clarity (U) CLOUDY Abnormal CLEAR [facility] Comment on above: Performed By: #### G LUM #### [facility] [address] [place] [address] [employer] Technician Mechanic - Patricia SÁNCHEZIA [id number] Color (U) ORANGE Abnormal YELLOW [facility] Comment on above: Performed By: #### G LUM #### [facility] [address] [place] [address] [employer]ician [employer] [facility] [id number] Glucose Ql (U) 4+ Abnormal NEGATIVE [facility] Comment on above: Performed By: #### G LUM #### [facility] [address] [place] [address] [employer] Technician [employer] - [facility] [id number] Hemoglobin Ql (U) 3+ Abnormal NEGATIVE [facility] Comment on above: Performed By: #### G LUM #### [facility] [address] [place] [address] [employer] Technician Mechanic - [place] [id number] HMICRO AUTOMATED MICROSCOPIC Normal [facility] Comment on above: Performed By: #### G LUM #### [facility] [address] [place] [address] [employer] Technician [employer] - [facility] [id number] Hyaline casts (Urine sed) [#/Area] 0-8 Normal 0-8 [facility] Comment on above: Performed By: #### G LUM #### [facility] [address] [address] [employer]ician [employer] - [facility] [id number] KETONE 3+ Abnormal NEGATIVE [facility] Comment on above: Performed By: #### G LUM #### [facility] [address] [place] [address] [employer] Technician [employer] - [facility] [id number] Leukocyte esterase Test strip Ql (U) 1+ Abnormal TRACE [facility] Comment on above: Performed By: #### G LUM #### [facility] [address] [facility]. [place] [address] [employer] Technician Mechanic - [facility] [id number] Nitrite Ql (U) Negative Normal NEGATIVE [facility] Comment on above: Performed By: #### G LUM #### [facility] [address] [facility]. [place] [address] [employer] Technician Mechanic - [place] [id number] pH (U) 6.0 [pH] Normal 5.5-7.5 [facility] Comment on above: Performed By: #### G LUM #### [facility] [address] [place] [address] [employer]el Technician Mechanic - Patricia SÁNCHEZIA [id number] Protein Ql (U) Negative Normal NEGATIVE [facility] Comment on above: Performed By: #### G LUM #### [facility] [address] [place] [address] [employer]el Technician Mechanic - Patricia SÁNCHEZIA [id number] RBC LM.HPF (Urine sed) [#/Area] TNTC Abnormal 0-4 [facility] Comment on above: Performed By: #### G LUM #### [address] [place] [address] [employer] Technician Mechanic - Patricia SÁNCHEZIA [id number] Specific gravity (U) [Rel density] 1.046 High 1.010-1.[address] [place] [address] Comment on above: Performed By: #### G LUM #### [address] [place] [address] [employer] Technician Mechanic - Patricia SÁNCHEZIA [id number] SQUAMOUS EPITHELIALS 6-10 Abnormal 0-5 [facility] Comment on above: Performed By: #### G LUM #### [address] [address] [facility] [place] [address] [employer]el Technician Mechanic - Patricia SÁNCHEZIA [id number] Urobilinogen Qn (U) 1.0 {Diaz'U}/dL Normal <=1.0 [facility] Comment on above: Performed By: #### G LUM #### [address] [place] [address] [employer]el Technician Mechanic - Patricia SÁNCHEZIA [id number] WBC LM.HPF (Urine sed) [#/Area] 50-100 Abnormal 0-5 [facility] Comment on above: Performed By: #### G LUM #### [address] [facility] [place] [address] [employer]el Technician Mechanic - Patricia SÁNCHEZIA [id number] CBCon 10-01-2020 Erythrocyte distribution width (RBC) [Ratio] 13.4 % 11.5 - 14.5 % [facility] Phone: Hematocrit (Bld) [Volume fraction] 41.8 % 37.0 - 47.0 % [facility] Phone: Hemoglobin (Bld) [Mass/Vol] 14.1 g/dL 12.0 - 16.0 g/dL [facility] Phone: MCH (RBC) [Entitic mass] 27.9 pg 27.0 - 31.3 pg [facility] Phone: MCHC (RBC) [Mass/Vol] 33.8 % 33.0 - 37.0 % [facility] Phone: MCV (RBC) [Entitic vol] 82.6 fL 82.0 - 100.0 fL [facility] Phone: Platelets (Bld) [#/Vol] 246 10*3/uL 130 - 400 K/uL [facility] [employer] Phone: RBC (Bld) [#/Vol] 5.06 10*6/uL [facility] [employer] Phone: WBC (Bld) [#/Vol] 8.3 10*3/uL 4.8 - 10.8 K/uL [facility] Phone: Comprehensive Metabolic Pane l w/ Reflex to MGon 10-01-2020 Albumin [Mass/Vol] 4.9 g/dL High 3.5 - 4.6 g/dL [facility] [employer] Phone: ALP [Catalytic activity/Vol] 93 U/L 40 - 130 U/L [facility] [employer] Phone: ALT [Catalytic activity/Vol] 13 U/L 0 - 33 U/L [facility] [employer] Phone: Anion gap [Moles/Vol] 10 mmol/L [facility] [employer] Work Phone: AST [Catalytic activity/Vol] 14 U/L 0 - 35 U/L [employer] Phone: Bilirubin Ql (U) 0.5 mg/dL 0.2 - 0.7 mg/dL [facility] Work Phone: Calcium [Mass/Vol] 10.7 mg/dL High 8.5 - 9.9 mg/dL [facility] Work Phone: Chloride [Moles/Vol] 98 mmol/L [facility] [employer] Work Phone: CO2 [Moles/Vol] 28 mmol/L [facility] Work Phone: Creatinine [Mass/Vol] 0.64 mg/dL 0.50 - 0.90 mg/dL [facility] Phone: GFR >60.0 >60 [employer] Work Phone: Comment on above: >60 mL/min/1.73m2 EG FR, calc. for ages 18 and older using the MDRD formula (not corrected for weight), is valid for stable renal function. GFR Non- >60.0 >60 [employer] Work Phone: Comment on above: >60 mL/min/1.73m2 EG FR, calc. for ages 18 and older using the MDRD formula (not corrected for weight), is valid for stable renal function. Globulin (S) [Mass/Vol] 3.2 g/dL 2.3 - 3.5 g/dL [facility] Work Phone: Glucose [Mass/Vol] 189 mg/dL High 70 - 99 mg/dL [facility] Phone: Interpretation and review of laboratory results Abnormal [facility] Phone: Potassium [Moles/Vol] 3.3 mmol/L Low [facility] [employer] Work Phone: Protein [Mass/Vol] 8.1 g/dL High 6.3 - 8.0 g/dL [facility] Work Phone: Sodium [Moles/Vol] 136 mmol/L [facility] Work Phone: Urea nitrogen [Mass/Vol] 11 mg/dL 6 - 20 mg/dL [facility] Work Phone: Lipaseon 10-01-2020 Lipase [Catalytic activity/Vol] 32 U/L 12 - 95 U/L [facility] Work Phone: Magnesiumon 10-01-2020 Magnesium [Mass/Vol] 2.0 mg/dL 1.7 - 2 .4 mg/dL [facility] Work Phone: Microscopic Urinalysison Bacteria, UA RARE Abnormal Negative /HPF [facility] Work Phone: Epithelial Cells, UA 10-20 [facility] [employer] Work Phone: Hyaline Casts, UA 10-20 [facility] Work Phone: Interpretation and review of laboratory results Abnormal [facility] Work Phone: RBC (U) [#/Vol] /uL [facility] Work Phone: WBC, UA 50-100 Abnormal [facility] Work Phone: POCT Glucoseon 10-01-2020 Glucose [Mass/Vol] 183 mg/dL High 60 - 115 mg/dl [facility] Work Phone: Interpretation and review of laboratory results Abnormal [facility] Work Phone: Performed on ACCU-CHEK [facility] Work Phone: Glucose [Mass/Vol] 183 mg/dL [facility] Work Phone: Interpretation and review of laboratory results Normal [facility] Work Phone: Urinalysison 10-01-2020 Bilirubin Urine Negative Negative [facility] Work Phone: Blood, Urine LARGE Abnormal Negative [facility] Work Phone: Clarity, UA CLOUDY Abnormal Clear [facility] [employer] Work Phone: Color, UA ORANGE Abnormal Straw/Mower ow [facility] [employer] Phone: Glucose, Ur >=1000 Abnormal Negative mg/dL [facility] [employer] Phone: Interpretation and review of laboratory results Abnormal [facility] [employer] Work Phone: Ketones Ql (U) 15 mg/dL Abnormal Negative [facility] [employer] Work Phone: Leukocyte esterase Test strip Ql (U) TRACE Abnormal Negative [facility] [employer] Phone: Nitrite, Urine Negative Negative [facility] [employer] Work Phone: pH, UA 5.0 [facility] [employer] Phone: Protein (U) [Mass/Vol] 30 mg/dL Abnormal Negative [facility] [employer] Work Phone: Specific Dent, UA 1.049 [facility] [employer] Work Phone: Urobilinogen, Urine 0.2 <2.0 E.U./dL [facility] [employer] Phone: Comprehensive Metabolic Pane loco 09-27-2020 Albumin [Mass/Vol] 4.5 g/dL 3.5 - 4.6 g/dL [facility] [employer] Phone: ALP [Catalytic activity/Vol] 81 U/L 40 - 130 U/L [facility] [employer] Phone: ALT [Catalytic activity/Vol] 17 U/L 0 - 33 U/L [facility] [employer] Phone: Comment on above: Specimen hemolysis h as exceeded the interference as defined by Mariah. Result may be affected. Suggest recollection if clinically indicated. Anion gap [Moles/Vol] 13 mmol/L [facility] [employer] Work Phone: AST [Catalytic activity/Vol] 26 U/L 0 - 35 U/L [facility] Work Phone: Comment on above: Specimen hemolysis h as exceeded the interference as defined by Mariah. Value may be falsely increased. Suggest recollection if clinically indicated. Bilirubin Ql (U) 0.4 mg/dL 0.2 - 0.7 mg/dL [facility] Work Phone: Calcium [Mass/Vol] 10.6 mg/dL High 8.5 - 9.9 mg/dL [facility] Work Phone: Chloride [Moles/Vol] 97 mmol/L [facility] [employer] Work Phone: CO2 [Moles/Vol] 25 mmol/L [facility] Work Phone: Creatinine [Mass/Vol] 0.61 mg/dL 0.50 - 0.90 mg/dL [facility] Work Phone: GFR >60.0 >60 [facility] [employer] Work Phone: Comment on above: >60 mL/min/1.73m2 EG FR, calc. for ages 18 and older using the MDRD formula (not corrected for weight), is valid for stable renal function. GFR Non- >60.0 >60 [facility] Work Phone: Comment on above: >60 mL/min/1.73m2 EG FR, calc. for ages 18 and older using the MDRD formula (not corrected for weight), is valid for stable renal function. Globulin (S) [Mass/Vol] 3.3 g/dL 2.3 - 3.5 g/dL [facility] Work Phone: Glucose [Mass/Vol] 339 mg/dL High 70 - 99 mg/dL [facility] [employer] Phone: Interpretation and review of laboratory results Abnormal [facility] Work Phone: Potassium [Moles/Vol] 4.5 mmol/L [facility] [employer] Work Phone: Comment on above: Specimen hemolysis h as exceeded the interference as defined by Mariah. Value may be falsely increased. Suggest recollection if clinically indicated. Protein [Mass/Vol] 7.8 g/dL 6.3 - 8.0 g/dL [employer] Phone: Sodium [Moles/Vol] 135 mmol/L [employer] Phone: Urea nitrogen [Mass/Vol] 15 mg/dL 6 - 20 mg/dL [employer] Phone: Lactic Acid, Plasmaon 2020 Lactate [Moles/Vol] 1.7 mmol/L 0.5 - 2. 2 mmol/L [employer] Phone: Lipaseon 09-27-2020 Lipase [Catalytic activity/Vol] 42 U/L 12 - 95 U/L [employer] Phone: Microscopic Urinalysison Bacteria, UA Negative Negative /HPF [employer] Phone: Epithelial Cells, UA 3-5 [employer] Work Phone: Hyaline Casts, UA 1-3 [facility] Work Phone: RBC (U) [#/Vol] /uL High [employer] [facility] Work Phone: WBC, UA 10-20 Abnormal [employer] Phone: Otheron 09-27-2020 Interpretation and review of laboratory results Abnormal [employer] Phone: POCT Venouson 09-27-2020 Creatinine [Mass/Vol] 0.5 mg/dL Low 0.6 - 1.1 mg/dL [employer] Phone: GFR >60 >60 [facility] [employer] Work Phone: Comment on above: >60 mL/min/1.73m2 EG FR, calc. for ages 18 and older using the MDRD formula (not corrected for weight), is valid for stable renal function. GFR Non- >60 >60 [employer] Phone: Comment on above: >60 mL/min/1.73m2 EG FR, calc. for ages 18 and older using the MDRD formula (not corrected for weight), is valid for stable renal function. Interpretation and review of laboratory results Abnormal [employer] Phone: Performed on SEE BELOW [facility] Phone: Comment on above: Performed on POC Sample Type JUSTICE [employer] Phone: Urine Reflex to Cultureon Bilirubin Urine Negative Negative [employer] [facility] Work Phone: Blood, Urine LARGE Abnormal Negative [facility] Phone: Clarity, UA Clear Clear [facility] Phone: Color, UA ORANGE Abnormal Straw/Mower ow [employer] Phone: Glucose, Ur >=1000 Abnormal Negative mg/dL [facility] Phone: Ketones Ql (U) 15 mg/dL Abnormal Negative [employer] Work Phone: Leukocyte esterase Test strip Ql (U) Negative Negative [facility] Phone: Nitrite, Urine Negative Negative [employer] Work Phone: pH, UA 5.0 [facility] Phone: Protein (U) [Mass/Vol] TRACE Abnormal Negat isabella mg/dL [facility] Phone: Specific Dent, UA 1.046 [facility] [employer] Phone: Urine Reflex to Culture Yes [facility] Phone: Urobilinogen, Urine 1.0 <2.0 E.U./dL [facility] Phone: POCT Creatinineon 09-26-2020 Creatinine [Mass/Vol] 0.5 mg/dL [facility] [employer] Work Phone: Interpretation and review of laboratory results Normal [facility] Work Phone: HCG QUALITATIVE, URINEon HCG ( test) Ql (U) Negative NEGATIVE [facility] Otheron 09-20-2020 Interpretation and review of laboratory results Abnormal [facility] URINALYSIS, MACROon 09-21-19 21 Bilirubin Ql (U) Negative NEGATIVE [facility] Clarity (U) CLEAR CLEAR [facility] Color (U) PINK Abnormal YELLOW [facility] Glucose Test strip (U) [Mass/Vol] 500 mg/dl Abnormal NEGATIVE [facility] Hemoglobin Ql (U) LARGE Abnormal NEGATIVE [facility] Ketones (U) [Mass/Vol] Negative NEGAT ISABELLA mg/dl [facility] Leukocyte esterase Test strip Ql (U) TRACE Abnormal NEGATIVE [facility] Nitrite Ql (U) Negative NEGATIVE [facility] pH (U) 6.0 [pH] [facility] Protein Ql (U) 30 mg/dl Abnormal NEGATIVE [facility] Specific gravity (U) [Rel density] 1.025 [facility] Urobilinogen (U) [Mass/Vol] 0.2 [facility] URINE MICROSCOPICon 09-21-19 Bacteria LM.HPF (Urine sed) [#/Area] TRACE Abnormal NEGATIVE [facility] Casts LM.LPF (Urine sed) [#/Area] NONE NONE /LPF [facility] Crystals LM Nom (Urine sed) NONE NONE [facility] Epithelial cells LM Ql (Urine sed) 1 TO 5 /HPF [facility] Mucus Ql (Urine sed) Negative NEGATIVE [facility] RBC LM.HPF (Urine sed) [#/Area] 10 TO 20 NEGATIVE /HPF [facility] Urine sediment comments LM Clint (Urine sed) REFLEX CULTURE PER ESTABLISHED CRITERIA. [facility] WBC LM.HPF (Urine sed) [#/Area] Negative NEGATIVE /HPF [facility] XR ABDOMEN 1 VIEWon 09-21-19 IMPRESSION: 1. Unremarkable bowel gas pattern without excessive air or stool throughout the colon. 2. Moderate food debris in the stomach. 3. Cholecystectomy clips in the right upper quadrant are noted. [facility] User, Interfaces - 09/20/2020 11:29 PM EDT [...] in the right upper quadrant are noted. [facility] EXAM: XR ABDOMEN 1 V IEW HISTORY: [...] Background findings are consistent with morbid obesity. [facility] Otheron 09-09-2020 Extra Tube Hold for add-ons. [facility] Comment on above: Auto resulted. URINALYSISon 09-09-2020 Bacteria Auto Ql (U) Few Abnormal None Se en /hpf [facility] Bilirubin Ql (U) Negative Negative [facility] Clarity Refractometry automated (U) Cloudy Abnormal Clear [facility] Color (U) Yellow Colorless, Yellow [facility] Epithelial cells.squamous Auto (Urine sed) [#/Area] 19 High [facility] Glucose Auto test strip (U) [Mass/Vol] 150 Abnormal Negative mg/dL [facility] Hemoglobin Auto test strip Ql (U) Large Abnormal Negative [facility] Interpretation and review of laboratory results Abnormal [facility] Ketones (U) [Mass/Vol] Negative Negat isabella mg/dL [facility] Leukocyte clumps Auto (Urine sed) [#/Area] Few Abnormal None Seen /hpf [facility] Leukocyte esterase Auto test strip Ql (U) Large Abnormal Negative [facility] M[facility] Auto (Urine sed) [#/Area] Many Abnormal None Seen, Rare /lpf [facility] Nitrite Auto test strip Ql (U) Negative Negative [facility] pH (U) 5.5 [pH] [facility] Protein (U) [Mass/Vol] 30 Abnormal Negat isabella mg/dL [facility] Comment on above: False positive resul ts may occur in urines with large amounts of hemoglobin, pH greater than 8.0, contrast medium, or disinfectants including ammonium compounds. RBC Auto (Urine sed) [#/Area] >180 High [facility] Specific gravity (U) [Rel density] 1.033 High [facility] Urobilinogen (U) [Mass/Vol] <2.0 <2.0 mg/dL [facility] WBC Auto (Urine sed) [#/Area] >180 High [facility] Microscopic examinat ion is performed on all urinalysis samples and only positive findings are reported. The test for blood on the chemical analytic portion of urinalysis may also be positive due to hemoglobinuria and myoglobinuria and if red blood cells are present they are quantified by microscopic examination. [facility] BMPon 08-14-2020 Anion gap [Moles/Vol] 12 mmol/L 10 - 2 0 mmol/L [facility] Calcium [Mass/Vol] 9.2 mg/dL 8.4 - 10. 2 mg/dL [facility] Chloride [Moles/Vol] 110 mmol/L High 98 - 10 8 mmol/L [facility] Creatinine [Mass/Vol] 0.71 mg/dL 0.40 - 1.10 [facility] GFR/1.73 sq M predicted among non-blacks MDRD (S/P/Bld) [Vol rate/Area] The eGFR should be used for monitoring renal function only and not for medication dosing. [facility] GFR/1.73 sq M.predicted CKD-EPI (S/P/Bld) [Vol rate/Area] 103 >=60 mL/min/1.7 3 m2 [facility] Glucose [Mass/Vol] 160 mg/dL High 65 - 99 mg/dL [facility] HCO3 [Moles/Vol] 24 mmol/L 21 - 32 mmol/L [facility] Interpretation and review of laboratory results Abnormal [facility] Potassium [Moles/Vol] 3.5 mmol/L 3.5 - 5.1 mmol/L [facility] Sodium [Moles/Vol] 142 mmol/L 135 - 145 mmol/L [facility] Urea nitrogen [Mass/Vol] 13 mg/dL 8 - 25 mg/dL [facility] Urea nitrogen/Creatinine [Mass ratio] 18.3 mg/mg [facility] CBC WITH AUTO DIFFERENTIALon 08-14-2020 Basophils (Bld) [#/Vol] 0.07 10*3/uL [facility] Basophils/100 WBC (Bld) 0.9 % [facility] Eosinophils (Bld) [#/Vol] 0.80 10*3/uL High [facility] Eosinophils/100 WBC (Bld) 10.5 % [facility] Erythrocyte distribution width (RBC) [Entitic vol] 13.6 % 11.6 - 14.8 % [facility] Hematocrit (Bld) [Volume fraction] 37.3 % 36.0 - 46.0 % [facility] Hemoglobin (Bld) [Mass/Vol] 12.7 g/dL 12.0 - 16.0 g/dL [facility] Immature granulocytes (Bld) [#/Vol] 0.01 10*3/uL [facility] Immature granulocytes/100 WBC (Bld) 0.10 % [facility] Comment on above: The IG parameter is the percentage of metamyelocytes, myelocytes and promyelocytes. An immature granulocyte count (IG) of 1% or more suggests the possibility of infection, an IG count of 3% is very likely related to an infection. Interpretation and review of laboratory results Abnormal [facility] Lymphocytes (Bld) [#/Vol] 2.52 10*3/uL [facility] Lymphocytes/100 WBC (Bld) 32.9 % [facility] MCH (RBC) [Entitic mass] 28.5 pg 26.0 - 34.0 pg [facility] MCHC (RBC) [Mass/Vol] 34.0 g/dL 31.0 - 37.0 g/dL [facility] MCV (RBC) [Entitic vol] 83.6 fL 80.0 - 100.0 fL [facility] Monocytes (Bld) [#/Vol] 0.67 10*3/uL [facility] Monocytes/100 WBC (Bld) 8.8 % [facility] Neutrophils (Bld) [#/Vol] 3.58 10*3/uL [facility] Neutrophils/100 WBC (Bld) 46.8 % [facility] [facility] Nucle[facility] RBC (Bld) [#/Vol] 0.00 10*3/uL [facility] Nucleated RBC/100 WBC (Bld) [Ratio] 0.0 % [facility] Platelet mean volume (Bld) [Entitic vol] 9.5 fL 9.4 - 12.4 fL [facility] Platelets (Bld) [#/Vol] 258 10*3/uL [facility] RBC (Bld) [#/Vol] 4.46 10*6/uL [facility] ealth WBC (Bld) [#/Vol] 7.65 10*3/uL [facility] ealt CT Abdomen Pelvis With IV Co ntrast Onlyon 08-14-2020 1. No specific etiol ogy identified to explain the patient's abdominal pain. 2. Liquid stool in the colon suggestive of diarrhea. No evidence of bowel obstruction is seen. 3. Nonobstructive right renal calculi. 4. Normal appendix. 5. Status post hysterectomy. [employer] Workstation ID: [id number] [facility] Interface, Rad In Fu ji Speechq - [...] 4. Normal appendix. 5. Status post hysterectomy. [employer] Workstation ID: [id number] [facility] EXAMINATION: CT ABDO MEN PELVIS WITH IV [...] Bone windows show no aggressive osseous lesions. [facility] HCG (QUALITATIVE)on 08-14-19 21 Beta HCG ( test) Ql Negative Negative [facility] Negative: The result is less than or equal to 5 mIU/mL of HCG. [facility] Hepatic Function Panel (LFT) on 08-14-2020 Albumin [Mass/Vol] 3.9 g/dL 3.2 - 5.2 g/dL [facility] ALP [Catalytic activity/Vol] 72 U/L 40 - 150 U/L [facility] ALT [Catalytic activity/Vol] 42 U/L 14 - 65 U/L [facility] AST [Catalytic activity/Vol] 27 U/L 0 - 45 U/L [facility] Bilirubin [Mass/Vol] 0.6 mg/dL 0.0 - 1 .3 mg/dL [facility] Bilirubin.conjugated [Mass/Vol] 0.2 mg/dL 0.0 - 0.4 mg/dL [facility] Protein [Mass/Vol] 7.8 g/dL 6.0 - 8.0 g/dL [facility] Lipaseon 08-14-2020 Lipase [Catalytic activity/Vol] 184 U/L 73 - 393 U/L [facility] Otheron 08-14-2020 Extra Tube Hold for add-ons. [facility] Comment on above: Auto resulted. Interpretation and review of laboratory results Normal [facility] URINALYSISon 08-14-2020 Bacteria Auto Ql (U) Rare Abnormal None Se en /hpf [facility] Bilirubin Ql (U) Negative Negative [facility] Clarity Refractometry automated (U) Cloudy Abnormal Clear [facility] Color (U) Yellow Colorless, Yellow [facility] Epithelial cells.squamous Auto (Urine sed) [#/Area] 6 High [facility] Glucose Auto test strip (U) [Mass/Vol] Negative Negative mg/dL [facility] Hemoglobin Auto test strip Ql (U) Large Abnormal Negative [facility] Interpretation and review of laboratory results Abnormal [facility] Ketones (U) [Mass/Vol] Negative Negat isabella mg/dL [facility] Leukocyte esterase Auto test strip Ql (U) Large Abnormal Negative [facility] Mucus Auto (Urine sed) [#/Area] Few Abnormal None Seen, Rare /lpf [facility] Nitrite Auto test strip Ql (U) Negative Negative [facility] pH (U) 6.0 [pH] [facility] Protein (U) [Mass/Vol] Negative Negat isabella mg/dL [facility] RBC Auto (Urine sed) [#/Area] >180 High [facility] Specific gravity (U) [Rel density] 1.024 [facility] Transitional cells Computer assisted (U) [#/Area] <1 [facility] Urobilinogen (U) [Mass/Vol] <2.0 <2.0 mg/dL [facility] WBC Auto (Urine sed) [#/Area] 17 High [facility] Microscopic examinat ion is performed on all urinalysis samples and only positive findings are reported. The test for blood on the chemical analytic portion of urinalysis may also be positive due to hemoglobinuria and myoglobinuria and if red blood cells are present they are quantified by microscopic examination. [facility] BMPon 07-16-2020 Anion gap [Moles/Vol] 9 mmol/L Low 10 - 2 0 mmol/L [facility] Calcium [Mass/Vol] 9.7 mg/dL 8.4 - 10. 2 mg/dL [facility] Chloride [Moles/Vol] 107 mmol/L 98 - 10 8 mmol/L [facility] Creatinine [Mass/Vol] 0.72 mg/dL 0.40 - 1.10 [facility] GFR/1.73 sq M predicted among non-blacks MDRD (S/P/Bld) [Vol rate/Area] The eGFR should be used for monitoring renal function only and not for medication dosing. [facility] GFR/1.73 sq M.predicted CKD-EPI (S/P/Bld) [Vol rate/Area] 101 >=60 mL/min/1.7 3 m2 [facility] Glucose [Mass/Vol] 109 mg/dL High 65 - 99 mg/dL [facility] HCO3 [Moles/Vol] 28 mmol/L 21 - 32 mmol/L [facility] Interpretation and review of laboratory results Abnormal [facility] Potassium [Moles/Vol] 3.7 mmol/L 3.5 - 5.1 mmol/L [facility] Sodium [Moles/Vol] 140 mmol/L 135 - 145 mmol/L [facility] Urea nitrogen [Mass/Vol] 17 mg/dL 8 - 25 mg/dL [facility] Urea nitrogen/Creatinine [Mass ratio] 23.6 mg/mg High [facility] CBC WITH AUTO DIFFERENTIALon 07-16-2020 Basophils (Bld) [#/Vol] 0.06 10*3/uL [facility] Basophils/100 WBC (Bld) 0.6 % [facility] Eosinophils (Bld) [#/Vol] 0.23 10*3/uL [facility] Eosinophils/100 WBC (Bld) 2.4 % [facility] Erythrocyte distribution width (RBC) [Entitic vol] 14.2 % 11.6 - 14.8 % [facility] Hematocrit (Bld) [Volume fraction] 39.3 % 36.0 - 46.0 % [facility] Hemoglobin (Bld) [Mass/Vol] 13.0 g/dL 12.0 - 16.0 g/dL [facility] Immature granulocytes (Bld) [#/Vol] 0.03 10*3/uL [facility] Immature granulocytes/100 WBC (Bld) 0.30 % [facility] Comment on above: The IG parameter is the percentage of metamyelocytes, myelocytes and promyelocytes. An immature granulocyte count (IG) of 1% or more suggests the possibility of infection, an IG count of 3% is very likely related to an infection. Interpretation and review of laboratory results Abnormal [facility] Lymphocytes (Bld) [#/Vol] 2.36 10*3/uL [facility] Lymphocytes/100 WBC (Bld) 25.1 % [facility] MCH (RBC) [Entitic mass] 28.3 pg 26.0 - 34.0 pg [facility] MCHC (RBC) [Mass/Vol] 33.1 g/dL 31.0 - 37.0 g/dL [facility] MCV (RBC) [Entitic vol] 85.6 fL 80.0 - 100.0 fL [facility] Monocytes (Bld) [#/Vol] 0.56 10*3/uL [facility] Monocytes/100 WBC (Bld) 5.9 % [facility] Neutrophils (Bld) [#/Vol] 6.18 10*3/uL [facility] Neutrophils/100 WBC (Bld) 65.7 % [facility] Nucleated RBC (Bld) [#/Vol] 0.00 10*3/uL [facility] Nucleated RBC/100 WBC (Bld) [Ratio] 0.0 % [facility] Platelet mean volume (Bld) [Entitic vol] 9.3 fL Low 9.4 - 12.4 fL [facility] Platelets (Bld) [#/Vol] 248 10*3/uL [facility] RBC (Bld) [#/Vol] 4.59 10*6/uL [facility] WBC (Bld) [#/Vol] 9.42 10*3/uL [facility] CT KIDNEY STONEon 07-16-2020 EXAMINATION: CT KIDN EY STONE HISTORY: Right-sided flank pain COMPARISON: [...] tissue: Unremarkable. Bone: No acute osseous abnormality. [facility] Scattered right-side d renal calculi without ureteral calculus. Mildly distended stomach. Additional findings as described above. /mjr Workstation ID: [id number] [facility] Interface, Rad In Fu ji Speechq - [...] distended stomach. Additional findings as described above. /[facility] Workstation ID: [id number] [facility] HCG (QUALITATIVE)on 07-16-19 21 Beta HCG ( test) Ql Negative Negative [facility] Negative: The result is less than or equal to 5 mIU/mL of HCG. [facility] Hepatic Function Panel (LFT) on 07-16-2020 Albumin [Mass/Vol] 3.9 g/dL 3.2 - 5.2 g/dL [facility] ALP [Catalytic activity/Vol] 64 U/L 40 - 150 U/L [facility] ALT [Catalytic activity/Vol] 24 U/L 14 - 65 U/L [facility] AST [Catalytic activity/Vol] 16 U/L 0 - 45 U/L [facility] Bilirubin [Mass/Vol] 0.5 mg/dL 0.0 - 1 .3 mg/dL [facility] Bilirubin.conjugated [Mass/Vol] 0.2 mg/dL 0.0 - 0.4 mg/dL [facility] Protein [Mass/Vol] 8.0 g/dL 6.0 - 8.0 g/dL [facility] Lactic Acid, Plasmaon 2020 Interpretation and review of laboratory results Normal [facility] Lactate [Moles/Vol] 1.4 mmol/L 0.6 - 2. 0 mmol/L [facility] Lipaseon 07-16-2020 Lipase [Catalytic activity/Vol] 199 U/L 73 - 393 U/L [facility] Otheron 07-16-2020 Interpretation and review of laboratory results Normal [facility] URINALYSISon 07-16-2020 Bacteria Auto Ql (U) Rare Abnormal None Se en /hpf [facility] Bilirubin Ql (U) Negative Negative [facility] Clarity Refractometry automated (U) Cloudy Abnormal Clear [facility] Color (U) Yellow Colorless, Yellow [facility] Epithelial cells.squamous Auto (Urine sed) [#/Area] 7 High [facility] Glucose Auto test strip (U) [Mass/Vol] Negative Negative mg/dL [facility] Hemoglobin Auto test strip Ql (U) Moderate Abnormal Negative [facility] Interpretation and review of laboratory results Abnormal [facility] Ketones (U) [Mass/Vol] Negative Negat isabella mg/dL [facility] Leukocyte esterase Auto test strip Ql (U) [facility] (Urine sed) [#/Area] Many Abnormal None Seen, Rare /lpf [facility] Nitrite Auto test strip Ql (U) Negative Negative [facility] pH (U) 6.0 [pH] [facility] Protein (U) [Mass/Vol] 30 Abnormal Negat isabella mg/dL [facility] Comment on above: False positive resul ts may occur in urines with large amounts of hemoglobin, pH greater than 8.0, contrast medium, or disinfectants including ammonium compounds. RBC Auto (Urine sed) [#/Area] >180 High [facility] Specific gravity (U) [Rel density] 1.029 High [facility] Transitional cells Computer assisted (U) [#/Area] <1 [facility] Urobilinogen (U) [Mass/Vol] <2.0 <2.0 mg/dL [facility] WBC Auto (Urine sed) [#/Area] 9 High [facility] Microscopic examinat ion is performed on all urinalysis samples and only positive findings are reported. The test for blood on the chemical analytic portion of urinalysis may also be positive due to hemoglobinuria and myoglobinuria and if red blood cells are present they are quantified by microscopic examination. [facility] BMPon 07-08-2020 Anion gap [Moles/Vol] 9 mmol/L Low 10 - 2 0 mmol/L [facility] Calcium [Mass/Vol] 9.6 mg/dL 8.4 - 10. 2 mg/dL [facility] Chloride [Moles/Vol] 107 mmol/L 98 - 10 8 mmol/L [facility] Creatinine [Mass/Vol] 0.99 mg/dL 0.40 - 1.10 [facility] GFR/1.73 sq M predicted among non-blacks MDRD (S/P/Bld) [Vol rate/Area] The eGFR should be used for monitoring renal function only and not for medication dosing. [facility] GFR/1.73 sq M.predicted CKD-EPI (S/P/Bld) [Vol rate/Area] 69 >=60 mL/min/1.7 3 m2 [facility] Glucose [Mass/Vol] 142 mg/dL High 65 - 99 mg/dL [facility] HCO3 [Moles/Vol] 28 mmol/L 21 - 32 mmol/L [facility] Interpretation and review of laboratory results Abnormal [facility] Potassium [Moles/Vol] 3.5 mmol/L 3.5 - 5.1 mmol/L [facility] Sodium [Moles/Vol] 140 mmol/L 135 - 145 mmol/L [facility] Urea nitrogen [Mass/Vol] 17 mg/dL 8 - 25 mg/dL [facility] Urea nitrogen/Creatinine [Mass ratio] 17.2 mg/mg [facility] CBC WITH AUTO DIFFERENTIALon 07-08-2020 Basophils (Bld) [#/Vol] 0.09 10*3/uL [facility] Basophils/100 WBC (Bld) 1.1 % [facility] Eosinophils (Bld) [#/Vol] 0.19 10*3/uL [facility] Eosinophils/100 WBC (Bld) 2.3 % [facility] Erythrocyte distribution width (RBC) [Entitic vol] 14.1 % 11.6 - 14.8 % [facility] Hematocrit (Bld) [Volume fraction] 39.1 % 36 - 46 % [facility] Hemoglobin (Bld) [Mass/Vol] 12.8 g/dL 12 - 16 g/dL [facility] Immature granulocytes (Bld) [#/Vol] 0.02 10*3/uL [facility] Immature granulocytes/100 WBC (Bld) 0.20 % [facility] Comment on above: The IG parameter is the percentage of metamyelocytes, myelocytes and promyelocytes. An immature granulocyte count (IG) of 1% or more suggests the possibility of infection, an IG count of 3% is very likely related to an infection. Lymphocytes (Bld) [#/Vol] 2.35 10*3/uL [facility] Lymphocytes/100 WBC (Bld) 29.0 % [facility] MCH (RBC) [Entitic mass] 27.5 pg 26 - 34 pg [facility] MCHC (RBC) [Mass/Vol] 32.7 g/dL 31 - 3 7 g/dL [facility] MCV (RBC) [Entitic vol] 83.9 fL 80 - 100 fL [facility] Monocytes (Bld) [#/Vol] 0.69 10*3/uL [facility] Monocytes/100 WBC (Bld) 8.5 % [facility] Neutrophils (Bld) [#/Vol] 4.75 10*3/uL [facility] Neutrophils/100 WBC (Bld) 58.9 % [facility] Nucleated RBC (Bld) [#/Vol] 0.00 10*3/uL [facility] Nucleated RBC/100 WBC (Bld) [Ratio] 0.0 % [facility] Platelet mean volume (Bld) [Entitic vol] 9.6 fL 9.4 - 12.4 fL [facility] Platelets (Bld) [#/Vol] 264 10*3/uL [facility] RBC (Bld) [#/Vol] 4.66 10*6/uL [facility] WBC (Bld) [#/Vol] 8.09 10*3/uL [facility] CT KIDNEY STONEon 07-08-2020 Patchy bilateral low er lobe airspace disease. Question viral/atypical pneumonia. Nonobstructing right renal calculi. No bowel obstruction or hydronephrosis. Additional nonacute findings, as detailed above. Workstation ID: [id number] [facility] EXAMINATION: CT KIDN EY STONE HISTORY: F, [...] are mild degenerative changes within the spine. [facility], Rad In Fu ji Speechq - [...] findings, as detailed above. Workstation ID: [id number] [facility] URINALYSISon 07-08-2020 Bacteria Auto Ql (U) Few Abnormal None Se en /hpf [facility] Bilirubin Ql (U) Negative Negative [facility] th Clarity Refractometry automated (U) Cloudy Abnormal Clear [facility] Color (U) Yellow Colorless, Yellow [facility] Epithelial cells.squamous Auto (Urine sed) [#/Area] 12 High [facility] Glucose Auto test strip (U) [Mass/Vol] Negative Negative mg/dL [facility] Hemoglobin Auto test strip Ql (U) Large Abnormal Negative [facility] Interpretation and review of laboratory results Abnormal [facility] Ketones (U) [Mass/Vol] Trace Abnormal Negat isabella mg/dL [facility] Leukocyte esterase Auto test strip Ql (U) Large Abnormal Negative [facility] h Mucus Auto (Urine sed) [#/Area] Many Abnormal None Seen, Rare /lpf [facility] Nitrite Auto test strip Ql (U) Negative Negative [facility] pH (U) 5.5 [pH] [facility] Protein (U) [Mass/Vol] 30 Abnormal Negat isabella mg/dL [facility] Comment on above: False positive resul ts may occur in urines with large amounts of hemoglobin, pH greater than 8.0, contrast medium, or disinfectants including ammonium compounds. RBC Auto (Urine sed) [#/Area] 88 High [facility] Specific gravity (U) [Rel density] 1.028 High [facility] Transitional cells Computer assisted (U) [#/Area] <1 [facility] Urobilinogen (U) [Mass/Vol] <2.0 <2.0 mg/dL [facility] WBC Auto (Urine sed) [#/Area] 52 High [facility] Microscopic examinat ion is performed on all urinalysis samples and only positive findings are reported. The test for blood on the chemical analytic portion of urinalysis may also be positive due to hemoglobinuria and myoglobinuria and if red blood cells are present they are quantified by microscopic examination. [facility] XR Chest 1 Viewon 07-08-2020 Interface, Rad [...] pneumonia. 2. Lungs otherwise clear. [id number] XR CHES T PA/AP 07/08/2020 9:40 [...] airspace opacities. Otherwise the lungs appear clear. [facility] 1. Left basilar airs pace opacities. Question developing pneumonia. 2. Lungs otherwise clear. Workstation ID: [id number] [facility] CBC Auto Differentialon Basophils (Bld) [#/Vol] 0.1 10*3/uL 0 - 0.2 K/uL [place] Basophils/100 WBC (Bld) 0.9 % [place] Eosinophils (Bld) [#/Vol] 0.3 10*3/uL 0 - 0.7 K/uL [place] Eosinophils/100 WBC (Bld) 3.3 % [place] Erythrocyte distribution width (RBC) [Ratio] 16.1 % High 11.5 - 14.5 % [place] Hematocrit (Bld) [Volume fraction] 37.0 % 37 - 47 % [place] Hemoglobin (Bld) [Mass/Vol] 12.8 g/dL 12 - 16 g/dL [place] Interpretation and review of laboratory results Abnormal [place] Lymphocytes (Bld) [#/Vol] 2.8 10*3/uL 1 - 4.8 K/uL [place] Lymphocytes/100 WBC (Bld) 33.9 % [place] MCH (RBC) [Entitic mass] 28.7 pg 27 - 31.3 pg [place] MCHC (RBC) [Mass/Vol] 34.5 % 33 - 37 % [place] MCV (RBC) [Entitic vol] 83.1 fL 82 - 100 fL [place] Monocytes (Bld) [#/Vol] 0.7 10*3/uL 0.2 - 0.8 K/uL [place] Monocytes/100 WBC (Bld) 8.5 % [place] Neutrophils Absolute 4.4 K/uL 1.4 - 6 .5 K/uL [place] Neutrophils/100 WBC (Bld) 53.4 % [place] Platelets (Bld) [#/Vol] 306 10*3/uL 130 - 400 K/uL [place] RBC (Bld) [#/Vol] 4.46 10*6/uL [place] WBC (Bld) [#/Vol] 8.2 10*3/uL 4.8 - 10.8 K/uL [place] Comprehensive Metabolic Pane loco 07-01-2020 Albumin [Mass/Vol] 4.9 g/dL High 3.5 - 4.6 g/dL [place] ALP [Catalytic activity/Vol] 70 U/L 40 - 130 U/L [place] ALT [Catalytic activity/Vol] 15 U/L 0 - 33 U/L [place] Anion gap [Moles/Vol] 12 mmol/L [place] AST [Catalytic activity/Vol] 17 U/L 0 - 35 U/L [place] Bilirubin Ql (U) 0.4 mg/dL 0.2 - 0.7 mg/dL [place] Calcium [Mass/Vol] 9.5 mg/dL 8.5 - 9.9 mg/dL [place] Chloride [Moles/Vol] 103 mmol/L [place] CO2 [Moles/Vol] 23 mmol/L [place] Creatinine [Mass/Vol] 0.52 mg/dL 0.5 - 0.9 mg/dL [place] GFR >60.0 >60 [place] Comment on above: >60 mL/min/1.73m2 EG FR, calc. for ages 18 and older using the MDRD formula (not corrected for weight), is valid for stable renal function. GFR Non- >60.0 >60 [place] Comment on above: >60 mL/min/1.73m2 EG FR, calc. for ages 18 and older using the MDRD formula (not corrected for weight), is valid for stable renal function. Globulin (S) [Mass/Vol] 2.4 g/dL 2.3 - 3.5 g/dL [place] Glucose [Mass/Vol] 187 mg/dL High 70 - 99 mg/dL [place] Interpretation and review of laboratory results Abnormal [place] Potassium [Moles/Vol] 3.5 mmol/L [place] Protein [Mass/Vol] 7.3 g/dL 6.3 - 8 g/dL [place] Sodium [Moles/Vol] 138 mmol/L [place] Urea nitrogen [Mass/Vol] 16 mg/dL 6 - 20 mg/dL [place] Microscopic Urinalysison Bacteria, UA RARE Abnormal Negative /HPF [place] Crystals, UA 3+ Ca. Oxalate Abnormal None Seen /HPF [place] Epithelial Cells, UA 6-10 [place] Mucus, UA Present None Seen /LPF [place] RBC (U) [#/Vol] /uL [place] WBC, UA >100 High [place] Otheron 07-01-2020 Interpretation and review of laboratory results Abnormal [place] Urine Reflex to Cultureon Bilirubin Urine Negative Negative [place] Blood, Urine LARGE Abnormal Negative [place] Clarity, UA TURBID Abnormal Clear [place] Color, UA Yellow Straw/Mower ow [place] Glucose, Ur Negative Negative mg/dL [place] Ketones Ql (U) TRACE Abnormal Negative mg/dL [place] Leukocyte esterase Test strip Ql (U) MODERATE Abnormal Negative [place] Nitrite, Urine Negative Negative [place] pH, UA 5.5 [place] Protein (U) [Mass/Vol] 30 mg/dL Abnormal Negative [place] Specific Dent, UA 1.035 [place] Urine Reflex to Culture Yes [place] Urobilinogen, Urine 0.2 <2.0 E.U./dL [place] C-Reactive Proteinon 020 CRP [Mass/Vol] 6.4 mg/L High 0 - 5 mg/L [place] Interpretation and review of laboratory results Abnormal [place] CBC Auto Differentialon 05-01 Basophils (Bld) [#/Vol] 0.0 10*3/uL 0 - 0.2 K/uL [place] Basophils/100 WBC (Bld) 0.3 % [place] Eosinophils (Bld) [#/Vol] 0.0 10*3/uL 0 - 0.7 K/uL [place] Eosinophils/100 WBC (Bld) 0.5 % [place] Erythrocyte distribution width (RBC) [Ratio] 15.4 % High 11.5 - 14.5 % [place] Hematocrit (Bld) [Volume fraction] 33.9 % Low 37 - 47 % [place] Hemoglobin (Bld) [Mass/Vol] 11.4 g/dL Low 12 - 16 g/dL [place] Interpretation and review of laboratory results Abnormal [place] Lymphocytes (Bld) [#/Vol] 0.7 10*3/uL Low 1 - 4.8 K/uL [place] Lymphocytes/100 WBC (Bld) 12.7 % [place] MCH (RBC) [Entitic mass] 28.5 pg 27 - 31.3 pg [place] MCHC (RBC) [Mass/Vol] 33.7 % 33 - 37 % [place] MCV (RBC) [Entitic vol] 84.6 fL 82 - 100 fL [place] Monocytes (Bld) [#/Vol] 0.1 10*3/uL Low 0.2 - 0.8 K/uL [place] Monocytes/100 WBC (Bld) 1.5 % [place] Neutrophils Absolute 4.5 K/uL 1.4 - 6 .5 K/uL [place] Neutrophils/100 WBC (Bld) 85.0 % [place] Platelets (Bld) [#/Vol] 150 10*3/uL 130 - 400 K/uL [place] RBC (Bld) [#/Vol] 4.01 10*6/uL Low [place] WBC (Bld) [#/Vol] 5.3 10*3/uL 4.8 - 10.8 K/uL [place] CTA CHEST [facility] EXAM: CT SCAN OF THE THORAX WITH [...] gross anomaly. No osteoblastic, no osteolytic lesions. [place] No CT evidence pulmo nary embolism. [...] dose to as low as reasonably achievable. [place] Hemant, Chpo Incoming Radiant Results From [employer] - 05/28/2020 8:05 AM EST EXAM: CT [...] dose to as low as reasonably achievable. [place] Comprehensive Metabolic Pane loco 05-28-2020 Albumin [Mass/Vol] 3.9 g/dL 3.5 - 4.6 g/dL [place] ALP [Catalytic activity/Vol] 66 U/L 40 - 130 U/L [place] ALT [Catalytic activity/Vol] 26 U/L 0 - 33 U/L [place] Anion gap [Moles/Vol] 13 mmol/L [place] AST [Catalytic activity/Vol] 23 U/L 0 - 35 U/L [place] Bilirubin Ql (U) 0.3 mg/dL 0.2 - 0.7 mg/dL [place] Calcium [Mass/Vol] 9.6 mg/dL 8.5 - 9.9 mg/dL [place] Chloride [Moles/Vol] 98 mmol/L [place], [place] CO2 [Moles/Vol] 25 [facility] [place] [place] Creatinine [Mass/Vol] 0.54 mg/dL 0.5 - 0.9 mg/dL [place], [place] GFR >60.0 >60 [place] Comment on above: >60 mL/min/1.73m2 EG FR, calc. for ages 18 and older using the MDRD formula (not corrected for weight), is valid for stable renal function. GFR Non- >60.0 >60 [place] Comment on above: >60 mL/min/1.73m2 EG FR, calc. for ages 18 and older using the MDRD formula (not corrected for weight), is valid for stable renal function. Globulin (S) [Mass/Vol] 2.4 g/dL 2.3 - 3.5 g/dL [place], [place] Glucose [Mass/Vol] 486 mg/dL Critically high 70 - 9 9 mg/dL [place] Interpretation and review of laboratory results Abnormal [place] Potassium [Moles/Vol] 4.4 mmol/L [place] Protein [Mass/Vol] 6.3 g/dL 6.3 - 8 g/dL [place] Sodium [Moles/Vol] 136 mmol/L [place] Urea nitrogen [Mass/Vol] 16 mg/dL 6 - 20 mg/dL [place] Comprehensive Metabolic Pane l w/ Reflex to MGon 05-28-2020 Albumin [Mass/Vol] 3.7 g/dL 3.5 - 4.6 g/dL [place] ALP [Catalytic activity/Vol] 57 U/L 40 - 130 U/L [place] ALT [Catalytic activity/Vol] 28 U/L 0 - 33 U/L [place] Anion gap [Moles/Vol] 12 mmol/L [place] AST [Catalytic activity/Vol] 24 U/L 0 - 35 U/L [place] Comment on above: Specimen hemolysis h as exceeded the interference as defined by Mariah. Value may be falsely increased. Suggest recollection if clinically indicated. Bilirubin Ql (U) <0.2 0.2 - 0.7 mg/dL [place] Calcium [Mass/Vol] 8.8 mg/dL 8.5 - 9.9 mg/dL [place] Chloride [Moles/Vol] 102 mmol/L [place] CO2 [Moles/Vol] 23 mmol/L [place] Creatinine [Mass/Vol] 0.53 mg/dL 0.5 - 0.9 mg/dL [place] GFR >60.0 >60 [place] Comment on above: >60 mL/min/1.73m2 EG FR, calc. for ages 18 and older using the MDRD formula (not corrected for weight), is valid for stable renal function. GFR Non- >60.0 >60 [place] Comment on above: >60 mL/min/1.73m2 EG FR, calc. for ages 18 and older using the MDRD formula (not corrected for weight), is valid for stable renal function. Globulin (S) [Mass/Vol] 2.6 g/dL 2.3 - 3.5 g/dL [place], [place] Glucose [Mass/Vol] 266 mg/dL High 70 - 99 mg/dL [place] Interpretation and review of laboratory results Abnormal [place] Potassium [Moles/Vol] 4.5 mmol/L [place] Protein [Mass/Vol] 6.3 g/dL 6.3 - 8 g/dL [place] Sodium [Moles/Vol] 137 mmol/L [place], [place] Urea nitrogen [Mass/Vol] 13 mg/dL 6 - 20 mg/dL [place] D-Dimer, Quantitativeon 05-01 D-Dimer, Quant 0.59 Critically high [place] Comment on above: VTE (DVT or PE) cut- off = 0.50 mg/L FEU Interpretation and review of laboratory results Abnormal [place] CALL [facility] LC[facility]W tel. [phone], Coag results called to and read back by SHALOM NO, 05/28/2020 05:45, by CLAIRE [place] Fibrinogenon 05-28-2020 Fibrinogen 335 mg/dL 235 - 507 mg/dL [place], [place] Hemoglobin A1con 05-28-2020 HbA1c (Bld) [Mass fraction] 11.2 % High 4.8 - 5.9 % [place] Interpretation and review of laboratory results Abnormal [place] Lactic Acid, Plasmaon 2019 Interpretation and review of laboratory results Abnormal [place] Lactate [Moles/Vol] 2.7 mmol/L High 0.5 - 2. 2 mmol/L [place] Interpretation and review of laboratory results Abnormal [place] Lactate [Moles/Vol] 4.2 mmol/L Critically high 0.5 - 2.2 mmol/L [place] CALL [facility] LCED tel. [phone], LACID results called to and read back byTIMMY FRANK, 05/28/2020 00:10, by [place] Magnesiumon 05-28-2020 Magnesium [Mass/Vol] 1.9 mg/dL 1.7 - 2 .4 mg/dL [place], [place] Otheron 05-28-2020 CALL [facility] LCED tel. [phone], GLU results called to and read back by TIMMY FRANK, 05/28/2020 00:09, [place] POCT Glucoseon 05-28-2020 Glucose [Mass/Vol] 350 mg/dL High 60 - 115 mg/dl [place], [place] Interpretation and review of laboratory results Abnormal [place] Performed on ACCU-CHEK [place], [place] Glucose [Mass/Vol] 349 mg/dL High 60 - 115 mg/dl [place] Interpretation and review of laboratory results Abnormal [place] Performed on ACCU-CHEK [place], [place] Glucose [Mass/Vol] 252 mg/dL High 60 - 115 mg/dl [place] Interpretation and review of laboratory results Abnormal [place] Performed on ACCU-CHEK [place] PROCALCITONINon 05-28-2020 Procalcitonin 0.07 ng/mL 0 - 0.15 ng/mL [place], [place] Comment on above: Suspected Sepsis: Low [...] to determine the patient's Mortality Risk Prognosis ([email or web address]) In healthy neonates, plasma Procalcitonin (PCT) concentrations increase gradually after , reaching peak values at about 24 hours of age then decrease to normal values below 0.5 ng/mL by 48-72 hours of age. CALL [facility] LCED tel. [phone], GLU results called to and read back by TIMMY FRANK, 05/28/2020 00:09, by JOSE G [place], [place] Sedimentation Rateon 020 Interpretation and review of laboratory results Abnormal [place], [place] Sed Rate 35 mm High 0 - 20 mm [place], [place] CBC Auto Differentialon 04-30 Basophils (Bld) [#/Vol] 0.1 10*3/uL 0 - 0.2 K/uL [place], [place] Basophils/100 WBC (Bld) 1.5 % [place] Eosinophils (Bld) [#/Vol] 0.3 10*3/uL 0 - 0.7 K/uL [place], [place] Eosinophils/100 WBC (Bld) 5.8 % [place] Erythrocyte distribution width (RBC) [Ratio] 15.2 % High 11.5 - 14.5 % [place] Hematocrit (Bld) [Volume fraction] 35.8 % Low 37 - 47 % [place] Hemoglobin (Bld) [Mass/Vol] 12.0 g/dL 12 - 16 g/dL [place], [place] Interpretation and review of laboratory results Abnormal [place] Lymphocytes (Bld) [#/Vol] 2.3 10*3/uL 1 - 4.8 K/uL [place], [place] Lymphocytes/100 WBC (Bld) 49.2 % [place] MCH (RBC) [Entitic mass] 28.9 pg 27 - 31.3 pg [place] MCHC (RBC) [Mass/Vol] 33.4 % 33 - 37 % [place] MCV (RBC) [Entitic vol] 86.6 fL 82 - 100 fL [place], [place] Monocytes (Bld) [#/Vol] 0.2 10*3/uL 0.2 - 0.8 K/uL [place], [place] Monocytes/100 WBC (Bld) 5.0 % [place] Neutrophils Absolute 1.8 K/uL 1.4 - 6 .5 K/uL [place], [place] Neutrophils/100 WBC (Bld) 38.5 % [place] Platelets (Bld) [#/Vol] 161 10*3/uL 130 - 400 K/uL [place], [place] RBC (Bld) [#/Vol] 4.13 10*6/uL Low [place] WBC (Bld) [#/Vol] 4.7 10*3/uL Low 4.8 - 10.8 K/uL [place] Microscopic Urinalysison Bacteria, UA Negative Negative /HPF [place], [place] Epithelial Cells, UA 6-10 [place], [place] Hyaline Casts, UA 1-3 [facility] [place] RBC (U) [#/Vol] /uL [facility] [place] WBC, UA 10-20 Abnormal [place], [place] Otheron 05-27-2020 Interpretation and review of laboratory results Abnormal [place] POCT CREATININEon 05-27-2020 Creatinine [Mass/Vol] 0.6 mg/dL [place] Interpretation and review of laboratory results Normal [place], [place] Urine Reflex to Cultureon Bilirubin Urine Negative Negative [place] Blood, Urine LARGE Abnormal Negative [place], [place] Clarity, UA Clear Clear [place] Color, UA RED Abnormal Straw[place]ower [place], [place] Glucose, Ur >=1000 Abnormal Negative mg/dL [place], [place] Ketones Ql (U) Negative Negative mg/dL [place], [place] Leukocyte esterase Test strip Ql (U) TRACE Abnormal Negative [place], [place] Nitrite, Urine Negative Negative [place] pH, UA 5.0 [place], [place] Protein (U) [Mass/Vol] Negative Negat isabella mg/dL [place], [place] Specific Dent, UA 1.033 [place], [place] Urine Reflex to Culture Yes [place] Urobilinogen, Urine 0.2 <2.0 E.U./dL [place], [place] CBC Auto Differentialon 04-30 Basophils (Bld) [#/Vol] 0.1 10*3/uL 0 - 0.2 K/uL [place], [place] Basophils/100 WBC (Bld) 1.3 % [place] Eosinophils (Bld) [#/Vol] 0.1 10*3/uL 0 - 0.7 K/uL [place], [place] Eosinophils/100 WBC (Bld) 2 % [place] Erythrocyte distribution width (RBC) [Ratio] 15.2 % High 11.5 - 14.5 % [place] Hematocrit (Bld) [Volume fraction] 41.9 % 37 - 47 % [place] Hemoglobin (Bld) [Mass/Vol] 14.2 g/dL 12 - 16 g/dL [place], [place] Interpretation and review of laboratory results Abnormal [place] Lymphocytes (Bld) [#/Vol] 2.9 10*3/uL 1 - 4.8 K/uL [place], [place] Lymphocytes/100 WBC (Bld) 38.8 % [place] MCH (RBC) [Entitic mass] 28.8 pg 27 - 31.3 pg [place] MCHC (RBC) [Mass/Vol] 33.8 % 33 - 37 % [place] MCV (RBC) [Entitic vol] 85.0 fL 82 - 100 fL [place], [place] Monocytes (Bld) [#/Vol] 0.5 10*3/uL 0.2 - 0.8 K/uL [place], [place] Monocytes/100 WBC (Bld) 6.9 % [place] Neutrophils Absolute 3.8 K/uL 1.4 - 6 .5 K/uL [place], [place] Neutrophils/100 WBC (Bld) 51.0 % [place] Platelets (Bld) [#/Vol] 222 10*3/uL 130 - 400 K/uL [place] RBC (Bld) [#/Vol] 4.93 10*6/uL [place] WBC (Bld) [#/Vol] 7.4 10*3/uL 4.8 - 10.8 K/uL [place] Comprehensive Metabolic Pane loco 05-25-2020 Albumin [Mass/Vol] 4.3 g/dL 3.5 - 4.6 g/dL [place] ALP [Catalytic activity/Vol] 63 U/L 40 - 130 U/L [place] ALT [Catalytic activity/Vol] 25 U/L 0 - 33 U/L [place] Anion gap [Moles/Vol] 13 mmol/L [place] AST [Catalytic activity/Vol] 20 U/L 0 - 35 U/L [place] Bilirubin Ql (U) 0.4 mg/dL 0.2 - 0.7 mg/dL [place] Calcium [Mass/Vol] 9.9 mg/dL 8.5 - 9.9 mg/dL [place], [place] Chloride [Moles/Vol] 99 mmol/L [place], [place] CO2 [Moles/Vol] 29 mmol/L [facility] [place] Creatinine [Mass/Vol] 0.56 mg/dL 0.5 - 0.9 mg/dL [place], [place] GFR >60.0 >60 [place], [place] Comment on above: >60 mL/min/1.73m2 EG FR, calc. for ages 18 and older using the MDRD formula (not corrected for weight), is valid for stable renal function. GFR Non- >60.0 >60 [place], [place] Comment on above: >60 mL/min/1.73m2 EG FR, calc. for ages 18 and older using the MDRD formula (not corrected for weight), is valid for stable renal function. Globulin (S) [Mass/Vol] 2.7 g/dL 2.3 - 3.5 g/dL [place], [place] Glucose [Mass/Vol] 325 mg/dL High 70 - 99 mg/dL [place], [place] Interpretation and review of laboratory results Abnormal [place] Potassium [Moles/Vol] 3.8 mmol/L [place] Protein [Mass/Vol] 7.0 g/dL 6.3 - 8 g/dL [place], [place] Sodium [Moles/Vol] 141 mmol/L [place], [place] Urea nitrogen [Mass/Vol] 14 mg/dL 6 - 20 mg/dL [place] D-Dimer, Quantitativeon 04-30 D-Dimer, Quant 0.43 [place], [place] Comment on above: VTE (DVT or PE) cut- off = 0.50 mg/L FEU Protime-INRon 05-25-2020 INR Coag (PPP) [Relative time] 0.9 {INR} [place], [place] PT Coag (PPP) [Time] 12.4 s [place], [place] CBC Auto Differentialon 11-2 0-2020 Basophils (Bld) [#/Vol] 0.1 10*3/uL 0 - 0.2 K/uL [place], [place] Basophils/100 WBC (Bld) 0.9 % [place] Eosinophils (Bld) [#/Vol] 0.2 10*3/uL 0 - 0.7 K/uL [place], [place] Eosinophils/100 WBC (Bld) 2.4 % [place] Erythrocyte distribution width (RBC) [Ratio] 14.3 % 11.5 - 14.5 % [place] Hematocrit (Bld) [Volume fraction] 41.4 % 37 - 47 % [place] Hemoglobin (Bld) [Mass/Vol] 13.8 g/dL 12 - 16 g/dL [place], [place] Lymphocytes (Bld) [#/Vol] 2.6 10*3/uL 1 - 4.8 K/uL [place], [place] Lymphocytes/100 WBC (Bld) 30.1 % [place] MCH (RBC) [Entitic mass] 28.2 pg 27 - 31.3 pg [place] MCHC (RBC) [Mass/Vol] 33.3 % 33 - 37 % [place] MCV (RBC) [Entitic vol] 84.8 fL 82 - 100 fL [place], [place] Monocytes (Bld) [#/Vol] 0.8 10*3/uL 0.2 - 0.8 K/uL [place], [place] Monocytes/100 WBC (Bld) 9.0 % [place] Neutrophils Absolute 5.1 K/uL 1.4 - 6 .5 K/uL [place], [place] Neutrophils/100 WBC (Bld) 57.6 % [place] Platelets (Bld) [#/Vol] 365 10*3/uL 130 - 400 K/uL [place], [place] RBC (Bld) [#/Vol] 4.88 10*6/uL [place] WBC (Bld) [#/Vol] 8.8 10*3/uL 4.8 - 10.8 K/uL [place] Collection has been rescheduled by SAMMIE at 05/18/2020 07:59 Reason: Ce back later [place] D-Dimer, Quantitativeon 04-30 D-Dimer, Quant 0.45 [place], [place] Comment on above: VTE (DVT or PE) cut- off = 0.50 mg/L FEU Collection has been rescheduled by SAMMIE at 05/18/2020 07:59 Reason: Ce back later [place] Ferritinon 05-18-2020 Ferritin [Mass/Vol] 81.0 ng/mL 13 - 150 ng/mL [place] Collection has been rescheduled by SAMMIE at 05/18/2020 07:59 Reason: Ce back later [place] High sensitivity CRPon 05-18 CRP High Sensitivity 1.8 mg/L 0 - 5 mg/L [place], [place] Magnesiumon 05-18-2020 Magnesium [Mass/Vol] 1.9 mg/dL 1.7 - 2 .4 mg/dL [place], [place] Otheron 05-18-2020 Collection has been rescheduled by SAMMIE at 05/18/2020 07:59 Reason: Ce back later [place], [place] POCT Glucoseon 05-18-2020 Glucose [Mass/Vol] 176 mg/dL High 60 - 115 mg/dl [place] Interpretation and review of laboratory results Abnormal [place] Glucose [Mass/Vol] 252 mg/dL High 60 - 115 mg/dl [place] Interpretation and review of laboratory results Abnormal [place] Glucose [Mass/Vol] 170 mg/dL High 60 - 115 mg/dl [place] Interpretation and review of laboratory results Abnormal [place] Performed on ACCU-CHEK [place] RENAL FUNCTION PANELon 05-18 Albumin [Mass/Vol] 3.5 g/dL 3.5 - 4.6 g/dL [place] Anion gap [Moles/Vol] 13 mmol/L [place] Calcium [Mass/Vol] 9.5 mg/dL 8.5 - 9.9 mg/dL [place], [place] Chloride [Moles/Vol] 97 mmol/L [place], [place] CO2 [Moles/Vol] 29 mmol/L [facility] [place] Creatinine [Mass/Vol] 0.61 mg/dL 0.5 - 0.9 mg/dL [place], [place] GFR >60.0 >60 [place], [place] Comment on above: >60 mL/min/1.73m2 EG FR, calc. for ages 18 and older using the MDRD formula (not corrected for weight), is valid for stable renal function. GFR Non- >60.0 >60 [place], [place] Comment on above: >60 mL/min/1.73m2 EG FR, calc. for ages 18 and older using the MDRD formula (not corrected for weight), is valid for stable renal function. Glucose [Mass/Vol] 270 mg/dL High 70 - 99 mg/dL [place], [place] Interpretation and review of laboratory results Abnormal [place] Phosphate [Mass/Vol] 3.3 mg/dL 2.3 - 4 .8 mg/dL [place], [place] Potassium [Moles/Vol] 4.0 mmol/L [place] Sodium [Moles/Vol] 139 mmol/L [place], [place] Urea nitrogen [Mass/Vol] 23 mg/dL High 6 - 20 mg/dL [place], [place] CBC Auto Differentialon 04-29 Basophils (Bld) [#/Vol] 0.1 10*3/uL 0 - 0.2 K/uL [place], [place] Basophils/100 WBC (Bld) 0.7 % [place] Eosinophils (Bld) [#/Vol] 0.1 10*3/uL 0 - 0.7 K/uL [place], [place] Eosinophils/100 WBC (Bld) 1.5 % [place] Erythrocyte distribution width (RBC) [Ratio] 14.6 % High 11.5 - 14.5 % [place] Hematocrit (Bld) [Volume fraction] 45.8 % 37 - 47 % [place] Hemoglobin (Bld) [Mass/Vol] 14.5 g/dL 12 - 16 g/dL [place], [place] Interpretation and review of laboratory results Abnormal [place] Lymphocytes (Bld) [#/Vol] 2.9 10*3/uL 1 - 4.8 K/uL [place], [place] Lymphocytes/100 WBC (Bld) 39.1 % [place] MCH (RBC) [Entitic mass] 27.6 pg 27 - 31.3 pg [place] MCHC (RBC) [Mass/Vol] 31.7 % Low 33 - 37 % [place] MCV (RBC) [Entitic vol] 87.1 fL 82 - 100 fL [place], [place] Monocytes (Bld) [#/Vol] 0.8 10*3/uL 0.2 - 0.8 K/uL [place], [place] Monocytes/100 WBC (Bld) 10.0 % [place] Neutrophils Absolute 3.7 K/uL 1.4 - 6 .5 K/uL [place], [place] Neutrophils/100 WBC (Bld) 48.7 % [place] Platelets (Bld) [#/Vol] 341 10*3/uL 130 - 400 K/uL [place], [place] RBC (Bld) [#/Vol] 5.26 10*6/uL [place] WBC (Bld) [#/Vol] 7.5 10*3/uL 4.8 - 10.8 K/uL [place] Collection has been rescheduled by MITJR at 05/17/2020 06:56 Reason: Failed attempt at venipuncture [place] D-Dimer, Quantitativeon 11- D-Dimer, Quant 0.52 Critically high [place] Comment on above: VTE (DVT or PE) cut- off = 0.50 mg/L FEU Interpretation and review of laboratory results Abnormal [place] CALL [facility] LC[facility]W tel. [phone], DIMER results called to and read back by Belgica Carpenter, 05/17/2020 08:39, by RAKESH Collection has been rescheduled by MITJR at 05/17/2020 06:56 Reason: Failed attempt at venipuncture [place] Ferritinon 05-17-2020 Ferritin [Mass/Vol] 77.0 ng/mL 13 - 150 ng/mL [place] Collection has been rescheduled by MITJR at 05/17/2020 06:56 Reason: Failed attempt at venipuncture [place] High sensitivity CRPon 05-17 CRP High Sensitivity 1.4 mg/L 0 - 5 mg/L [place], [place] Magnesiumon 05-17-2020 Magnesium [Mass/Vol] 2.2 mg/dL 1.7 - 2 .4 mg/dL [place], [place] Otheron 05-17-2020 Collection has been rescheduled by MITJR at 05/17/2020 06:56 Reason: Failed attempt at venipuncture [place] POCT Glucoseon 05-17-2020 Glucose [Mass/Vol] 222 mg/dL High 60 - 115 mg/dl [place] Interpretation and review of laboratory results Abnormal [place] Glucose [Mass/Vol] 203 mg/dL High 60 - 115 mg/dl [place] Interpretation and review of laboratory results Abnormal [place] Performed on ACCU-CHEK [place], [place] Comment on above: Sliding Scale Glucose [Mass/Vol] 239 mg/dL High 60 - 115 mg/dl [place] Interpretation and review of laboratory results Abnormal [place] Performed on ACCU-CHEK [place], [place] Comment on above: Sliding Scale Glucose [Mass/Vol] 141 mg/dL High 60 - 115 mg/dl [place], [place] Interpretation and review of laboratory results Abnormal [place] Performed on ACCU-CHEK [place] RENAL FUNCTION PANELon 05-17 Albumin [Mass/Vol] 3.6 g/dL 3.5 - 4.6 g/dL [place], [place] Anion gap [Moles/Vol] 10 mmol/L [place] Calcium [Mass/Vol] 9.3 mg/dL 8.5 - 9.9 mg/dL [place], [place] Chloride [Moles/Vol] 95 mmol/L [place] CO2 [Moles/Vol] 30 [facility]L [facility] [place] Creatinine [Mass/Vol] 0.49 mg/dL Low 0.5 - 0.9 mg/dL [place], [place] GFR >60.0 >60 [place], [place] Comment on above: >60 mL/min/1.73m2 EG FR, calc. for ages 18 and older using the MDRD formula (not corrected for weight), is valid for stable renal function. GFR Non- >60.0 >60 [place], [place] Comment on above: >60 mL/min/1.73m2 EG FR, calc. for ages 18 and older using the MDRD formula (not corrected for weight), is valid for stable renal function. Glucose [Mass/Vol] 141 mg/dL High 70 - 99 mg/dL [place], [place] Interpretation and review of laboratory results Abnormal [place] Phosphate [Mass/Vol] 4.4 mg/dL 2.3 - 4 .8 mg/dL [place], [place] Potassium [Moles/Vol] 4.3 mmol/L [place] Sodium [Moles/Vol] 135 mmol/L [place], [place] Urea nitrogen [Mass/Vol] 26 mg/dL High 6 - 20 mg/dL [place], [place] CBC Auto Differentialon 04-29 Basophils (Bld) [#/Vol] 0.2 10*3/uL 0 - 0.2 K/uL [place], [place] Basophils/100 WBC (Bld) 1.7 % [place] Eosinophils (Bld) [#/Vol] 0.0 10*3/uL 0 - 0.7 K/uL [place], [place] Eosinophils/100 WBC (Bld) 0.2 % [place] Erythrocyte distribution width (RBC) [Ratio] 14.2 % 11.5 - 14.5 % [place] Hematocrit (Bld) [Volume fraction] 41.9 % 37 - 47 % [place] Hemoglobin (Bld) [Mass/Vol] 14.2 g/dL 12 - 16 g/dL [place], [place] Interpretation and review of laboratory results Abnormal [place] Lymphocytes (Bld) [#/Vol] 2.9 10*3/uL 1 - 4.8 K/uL [place], [place] Lymphocytes/100 WBC (Bld) 21.9 % [place] MCH (RBC) [Entitic mass] 28.6 pg 27 - 31.3 pg [place], [place] MCHC (RBC) [Mass/Vol] 33.9 % 33 - 37 % [place] MCV (RBC) [Entitic vol] 84.5 fL 82 - 100 fL [place], [place] Monocytes (Bld) [#/Vol] 0.9 10*3/uL High 0.2 - 0.8 K/uL [place], [place] Monocytes/100 WBC (Bld) 6.5 % [place] Neutrophils Absolute 9.3 K/uL High 1.4 - 6 .5 K/uL [place], [place] Neutrophils/100 WBC (Bld) 69.7 % [place] Platelets (Bld) [#/Vol] 443 10*3/uL High 130 - 400 K/uL [place], [place] RBC (Bld) [#/Vol] 4.96 10*6/uL [place], [place] WBC (Bld) [#/Vol] 13.3 10*3/uL High 4.8 - 10.8 K/uL [place] D-Dimer, Quantitativeon 04-29 D-Dimer, Quant 0.4 [place], [place] Comment on above: VTE (DVT or PE) cut- off = 0.50 mg/L FEU Ferritinon 05-16-2020 Ferritin [Mass/Vol] 319.3 ng/mL High 13 - 150 ng/mL [place], [place] Interpretation and review of laboratory results Abnormal [place], [place] High sensitivity CRPon 05-16 CRP High Sensitivity 1.9 mg/L 0 - 5 mg/L [place], [place] Magnesiumon 05-16-2020 Magnesium [Mass/Vol] 2.1 mg/dL 1.7 - 2 .4 mg/dL [place], [place] POCT Glucoseon 05-16-2020 Glucose [Mass/Vol] 336 mg/dL High 60 - 115 mg/dl [place], [place] Interpretation and review of laboratory results Abnormal [place] Glucose [Mass/Vol] 271 mg/dL High 60 - 115 mg/dl [place], [place] Interpretation and review of laboratory results Abnormal [place]formed [place] Glucose [Mass/Vol] 234 mg/dL High 60 - 115 mg/dl [place], [place] Interpretation and review of laboratory results Abnormal [place] Glucose [Mass/Vol] 242 mg/dL High 60 - 115 mg/dl [place], [place] Interpretation and review of laboratory results Abnormal [place] Performed on ACCU-CHEK [place] RENAL FUNCTION PANELon 05-16 Albumin [Mass/Vol] 3.7 g/dL 3.5 - 4.6 g/dL [place], [place] Anion gap [Moles/Vol] 21 mmol/L High [place] Calcium [Mass/Vol] 10.1 mg/dL High 8.5 - 9.9 mg/dL [place], [place] Chloride [Moles/Vol] 96 mmol/L [place], [place] CO2 [Moles/Vol] 21 mmol/L [facility] [place] Creatinine [Mass/Vol] 0.53 mg/dL 0.5 - 0.9 mg/dL [place], [place] GFR >60.0 >60 [place], [place] Comment on above: >60 mL/min/1.73m2 EG FR, calc. for ages 18 and older using the MDRD formula (not corrected for weight), is valid for stable renal function. GFR Non- >60.0 >60 [place], [place] Comment on above: >60 mL/min/1.73m2 EG FR, calc. for ages 18 and older using the MDRD formula (not corrected for weight), is valid for stable renal function. Glucose [Mass/Vol] 228 mg/dL High 70 - 99 mg/dL [place], [place] Interpretation and review of laboratory results Abnormal [place] Phosphate [Mass/Vol] 4.4 mg/dL 2.3 - 4 .8 mg/dL [place] Potassium [Moles/Vol] 4.6 mmol/L [place] Sodium [Moles/Vol] 138 mmol/L [place], [place] Urea nitrogen [Mass/Vol] 29 mg/dL High 6 - 20 mg/dL [place], [place] CBC Auto Differentialon 04-29 Anisocytosis Ql (Bld) 1+ [place] Basophils (Bld) [#/Vol] 0.0 10*3/uL 0 - 0.2 K/uL [place], [place] Basophils/100 WBC (Bld) 0.5 % [place] Eosinophils (Bld) [#/Vol] 0.0 10*3/uL 0 - 0.7 K/uL [place], [place] Eosinophils/100 WBC (Bld) 0.1 % [place] Erythrocyte distribution width (RBC) [Ratio] 14.1 % 11.5 - 14.5 % [place] Hematocrit (Bld) [Volume fraction] 41.8 % 37 - 47 % [place] Hemoglobin (Bld) [Mass/Vol] 14.0 g/dL 12 - 16 g/dL [place], [place] Interpretation and review of laboratory results Abnormal [place] Lymphocytes (Bld) [#/Vol] 1.6 10*3/uL 1 - 4.8 K/uL [place], [place] Lymphocytes/100 WBC (Bld) 14.0 % [place] MCH (RBC) [Entitic mass] 27.7 pg 27 - 31.3 pg [place] MCHC (RBC) [Mass/Vol] 33.5 % 33 - 37 % [place] MCV (RBC) [Entitic vol] 82.7 fL 82 - 100 fL [place] Microcytes 1+ [place] Monocytes (Bld) [#/Vol] 1.4 10*3/uL High 0.2 - 0.8 K/uL [place], [place] Monocytes/100 WBC (Bld) 12.0 % [place] Neutrophils Absolute 8.7 K/uL High 1.4 - 6 .5 K/uL [place], [place] Neutrophils/100 WBC (Bld) 74.0 % [place] Platelets (Bld) [#/Vol] 412 10*3/uL High 130 - 400 K/uL [place], [place] Poikilocytes 1+ [place] RBC (Bld) [#/Vol] 5.05 10*6/uL [place] WBC (Bld) [#/Vol] 11.7 10*3/uL High 4.8 - 10.8 K/uL [place] Collection has been rescheduled by SAMMIE at 05/15/2020 06:50 Reason: Failed attempt at venipuncture [place], [place] D-Dimer, Quantitativeon 04-29 D-Dimer, Quant 0.47 [place], [place] Comment on above: VTE (DVT or PE) cut- off = 0.50 mg/L FEU Collection has been rescheduled by SAMMIE at 05/15/2020 06:50 Reason: Failed attempt at venipuncture [place], [place] Ferritinon 05-15-2020 Ferritin [Mass/Vol] 60.6 ng/mL 13 - 150 ng/mL [place], [place] Collection has been rescheduled by SAMMIE at 05/15/2020 06:50 Reason: Failed attempt at venipuncture [place], [place] High sensitivity CRPon 05-15 CRP High Sensitivity 2.9 mg/L 0 - 5 mg/L [place], [place] Collection has been rescheduled by SAMMIE at 05/15/2020 06:50 Reason: Failed attempt at venipuncture [place] Magnesiumon 05-15-2020 Magnesium [Mass/Vol] 1.9 mg/dL 1.7 - 2 .4 mg/dL [place], [place] Otheron 05-15-2020 Collection has been rescheduled by SAMMIE at 05/15/2020 06:50 Reason: Failed attempt at venipuncture [place] POCT Glucoseon 05-15-2020 Glucose [Mass/Vol] 317 mg/dL High 60 - 115 mg/dl [place] Interpretation and review of laboratory results Abnormal [place] Glucose [Mass/Vol] 338 mg/dL High 60 - 115 mg/dl [place] Interpretation and review of laboratory results Abnormal [place] Glucose [Mass/Vol] 319 mg/dL High 60 - 115 mg/dl [place] Interpretation and review of laboratory results Abnormal [place] Glucose [Mass/Vol] 191 mg/dL High 60 - 115 mg/dl [place] Interpretation and review of laboratory results Abnormal [place] Performed [place] [facility] RENAL FUNCTION PANELon 05-15 Albumin [Mass/Vol] 4 g/dL 3.5 - 4.6 g/dL [place], [place] Anion gap [Moles/Vol] 8 mmol/L Low [place] Calcium [Mass/Vol] 9.9 mg/dL 8.5 - 9.9 mg/dL [place] Chloride [Moles/Vol] 90 mmol/L [place] CO2 [Moles/Vol] 33 mmol/[facility] [place] Creatinine [Mass/Vol] 0.52 mg/dL 0.5 - 0.9 mg/dL [place] GFR >60.0 >60 [place], [place] Comment on above: >60 mL/min/1.73m2 EG FR, calc. for ages 18 and older using the MDRD formula (not corrected for weight), is valid for stable renal function. GFR Non- >60.0 >60 [place] Comment on above: >60 mL/min/1.73m2 EG FR, calc. for ages 18 and older using the MDRD formula (not corrected for weight), is valid for stable renal function. Glucose [Mass/Vol] 213 mg/dL High 70 - 99 mg/dL [place] Interpretation and review of laboratory results Abnormal [place] Phosphate [Mass/Vol] 3.6 mg/dL 2.3 - 4 .8 mg/dL [place] Potassium [Moles/Vol] 4.0 mmol/L [place] Sodium [Moles/Vol] 131 mmol/L Low [place], [place] Urea nitrogen [Mass/Vol] 25 mg/dL High 6 - 20 mg/dL [place], [place] CBC Auto Differentialon 04-29 Basophils (Bld) [#/Vol] 0.0 10*3/uL 0 - 0.2 K/uL [place], [place] Basophils/100 WBC (Bld) 0.2 % [place] Eosinophils (Bld) [#/Vol] 0.0 10*3/uL 0 - 0.7 K/uL [place], [place] Eosinophils/100 WBC (Bld) 0.5 % [place] Erythrocyte distribution width (RBC) [Ratio] 14.2 % 11.5 - 14.5 % [place] Hematocrit (Bld) [Volume fraction] 40.8 % 37 - 47 % [place] Hemoglobin (Bld) [Mass/Vol] 13.5 g/dL 12 - 16 g/dL [place] Lymphocytes (Bld) [#/Vol] 1.8 10*3/uL 1 - 4.8 K/uL [place], [place] Lymphocytes/100 WBC (Bld) 22.1 % [place] MCH (RBC) [Entitic mass] 27.3 pg 27 - 31.3 pg [place] MCHC (RBC) [Mass/Vol] 33.1 % 33 - 37 % [place] MCV (RBC) [Entitic vol] 82.3 fL 82 - 100 fL [place], [place] Monocytes (Bld) [#/Vol] 0.8 10*3/uL 0.2 - 0.8 K/uL [place], [place] Monocytes/100 WBC (Bld) 10.0 % [place] Neutrophils Absolute 5.6 K/uL 1.4 - 6 .5 K/uL [place], [place] Neutrophils/100 WBC (Bld) 67.2 % [place] Platelets (Bld) [#/Vol] 395 10*3/uL 130 - 400 K/uL [place] RBC (Bld) [#/Vol] 4.96 10*6/uL [place] WBC (Bld) [#/Vol] 8.3 10*3/uL 4.8 - 10.8 K/uL [place] D-Dimer, Quantitativeon 04-29 D-Dimer, Quant 0.45 [place], [place] Comment on above: VTE (DVT or PE) cut- off = 0.50 mg/L FEU Ferritinon 05-14-2020 Ferritin [Mass/Vol] 53.2 ng/mL 13 - 150 ng/mL [place], [place] High sensitivity CRPon 05-14 CRP High Sensitivity 4.4 mg/L 0 - 5 mg/L [place], [place] Magnesiumon 05-14-2020 Magnesium [Mass/Vol] 1.9 mg/dL 1.7 - 2 .4 mg/dL [place], [place] POCT Glucoseon 05-14-2020 Glucose [Mass/Vol] 270 mg/dL High 60 - 115 mg/dl [place] Interpretation and review of laboratory results Abnormal [place] Performed [place] [facility] [place], [place] Glucose [Mass/Vol] 227 mg/dL High 60 - 115 mg/dl [place] Interpretation and review of laboratory results Abnormal [place] Performed [place] [facility] [place], [place] Glucose [Mass/Vol] 311 mg/dL High 60 - 115 mg/dl [place] Interpretation and review of laboratory results Abnormal [place] Performed [place] [facility] [place] Glucose [Mass/Vol] 130 mg/dL High 60 - 115 mg/dl [place] Interpretation and review of laboratory results Abnormal [place] Performed [place] [facility] [place] RENAL FUNCTION PANELon 05-14 Albumin [Mass/Vol] 3.7 g/dL 3.5 - 4.6 g/dL [place], [place] Anion gap [Moles/Vol] 10 mmol/L [place] Calcium [Mass/Vol] 9.5 mg/dL 8.5 - 9.9 mg/dL [place] Chloride [Moles/Vol] 96 mmol/L [place], [place] CO2 [Moles/Vol] 33 mmol/L [place] Creatinine [Mass/Vol] 0.6 mg/dL 0.5 - 0.9 mg/dL [place] GFR >60.0 >60 [place], [place] Comment on above: >60 mL/min/1.73m2 EG FR, calc. for ages 18 and older using the MDRD formula (not corrected for weight), is valid for stable renal function. GFR Non- >60.0 >60 [place] Comment on above: >60 mL/min/1.73m2 EG FR, calc. for ages 18 and older using the MDRD formula (not corrected for weight), is valid for stable renal function. Glucose [Mass/Vol] 135 mg/dL High 70 - 99 mg/dL [place] Interpretation and review of laboratory results Abnormal [place] Phosphate [Mass/Vol] 4.4 mg/dL 2.3 - 4 .8 mg/dL [place] Potassium [Moles/Vol] 3.6 mmol/L [place] Sodium [Moles/Vol] 139 mmol/L [place], [place] Urea nitrogen [Mass/Vol] 27 mg/dL High 6 - 20 mg/dL [place], [place] CBC Auto Differentialon 04-29 Basophils (Bld) [#/Vol] 0.0 10*3/uL 0 - 0.2 K/uL [place], [place] Basophils/100 WBC (Bld) 0.1 % [place] Eosinophils (Bld) [#/Vol] 0.1 10*3/uL 0 - 0.7 K/uL [place] Eosinophils/100 WBC (Bld) 0.8 % [place] Erythrocyte distribution width (RBC) [Ratio] 14.4 % 11.5 - 14.5 % [place] Hematocrit (Bld) [Volume fraction] 40.0 % 37 - 47 % [place] Hemoglobin (Bld) [Mass/Vol] 13.6 g/dL 12 - 16 g/dL [place] Interpretation and review of laboratory results Abnormal [place] Lymphocytes (Bld) [#/Vol] 1.5 10*3/uL 1 - 4.8 K/uL [place], [place] Lymphocytes/100 WBC (Bld) 16.9 % [place] MCH (RBC) [Entitic mass] 27.9 pg 27 - 31.3 pg [place] MCHC (RBC) [Mass/Vol] 34.1 % 33 - 37 % [place] MCV (RBC) [Entitic vol] 81.7 fL Low 82 - 100 fL [place], [place] Monocytes (Bld) [#/Vol] 0.9 10*3/uL High 0.2 - 0.8 K/uL [place], [place] Monocytes/100 WBC (Bld) 10.2 % [place] Neutrophils Absolute 6.4 K/uL 1.4 - 6 .5 K/uL [place] Neutrophils/100 WBC (Bld) 72.0 % [place] Platelets (Bld) [#/Vol] 415 10*3/uL High 130 - 400 K/uL [place] RBC (Bld) [#/Vol] 4.89 10*6/uL [place] WBC (Bld) [#/Vol] 8.9 10*3/uL 4.8 - 10.8 K/uL [place] D-Dimer, Quantitativeon 04-29 D-Dimer, Quant 0.74 Critically high [place] Comment on above: VTE (DVT or PE) cut- off = 0.50 mg/L FEU Interpretation and review of laboratory results Abnormal [place] CALL [facility] tel. [phone], D-dimer called to and read back by Clare Rueda LPN, 05/13/2020 09:21, by MIHAI [place] Ferritinon 05-13-2020 Ferritin [Mass/Vol] 50.3 ng/mL 13 - 150 ng/mL [place], [place] High sensitivity CRPon 05-13 CRP High Sensitivity 7.1 mg/L High 0 - 5 mg/L [place], [place] Interpretation and review of laboratory results Abnormal [place] Magnesiumon 05-13-2020 Magnesium [Mass/Vol] 1.8 mg/dL 1.7 - 2 .4 mg/dL [place], [place] POCT Glucoseon 05-13-2020 Glucose [Mass/Vol] 328 mg/dL High 60 - 115 mg/dl [place] Interpretation and review of laboratory results Abnormal [place] Performed [place] [facility] [place], [place] Comment on above: Notified RN or MD Glucose [Mass/Vol] 313 mg/dL High 60 - 115 mg/dl [place] Interpretation and review of laboratory results Abnormal [place] Glucose [Mass/Vol] 311 mg/dL High 60 - 115 mg/dl [place] Interpretation and review of laboratory results Abnormal [place] Performed [place] [facility] [place] Glucose [Mass/Vol] 130 mg/dL High 60 - 115 mg/dl [place] Interpretation and review of laboratory results Abnormal [place] Performed [place] [facility] [place] RENAL FUNCTION PANELon 05-13 Albumin [Mass/Vol] 3.7 g/dL 3.5 - 4.6 g/dL [place] Anion gap [Moles/Vol] 15 mmol/L [place] Calcium [Mass/Vol] 9.6 mg/dL 8.5 - 9.9 mg/dL [place] Chloride [Moles/Vol] 96 mmol/L [place], [place] CO2 [Moles/Vol] 29 mmol/L [facility] [place] Creatinine [Mass/Vol] 0.56 mg/dL 0.5 - 0.9 mg/dL [place] GFR >60.0 >60 [place], [place] Comment on above: >60 mL/min/1.73m2 EG FR, calc. for ages 18 and older using the MDRD formula (not corrected for weight), is valid for stable renal function. GFR Non- >60.0 >60 [place] Comment on above: >60 mL/min/1.73m2 EG FR, calc. for ages 18 and older using the MDRD formula (not corrected for weight), is valid for stable renal function. Glucose [Mass/Vol] 120 mg/dL High 70 - 99 mg/dL [place] Interpretation and review of laboratory results Abnormal [place] Phosphate [Mass/Vol] 3.8 mg/dL 2.3 - 4 .8 mg/dL [place] Potassium [Moles/Vol] 3.3 mmol/L Low [place] Sodium [Moles/Vol] 140 mmol/L [place], [place] Urea nitrogen [Mass/Vol] 22 mg/dL High 6 - 20 mg/dL [place], [place] CBC Auto Differentialon 04-29 Basophils (Bld) [#/Vol] 0.0 10*3/uL 0 - 0.2 K/uL [place], [place] Basophils/100 WBC (Bld) 0.3 % [place] Eosinophils (Bld) [#/Vol] 0.1 10*3/uL 0 - 0.7 K/uL [place] Eosinophils/100 WBC (Bld) 1.1 % [place] Erythrocyte distribution width (RBC) [Ratio] 14.0 % 11.5 - 14.5 % [place] Hematocrit (Bld) [Volume fraction] 38.1 % 37 - 47 % [place] Hemoglobin (Bld) [Mass/Vol] 13.0 g/dL 12 - 16 g/dL [place] Lymphocytes (Bld) [#/Vol] 1.0 10*3/uL 1 - 4.8 K/uL [place], [place] Lymphocytes/100 WBC (Bld) 14.5 % [place] MCH (RBC) [Entitic mass] 28.0 pg 27 - 31.3 pg [place] MCHC (RBC) [Mass/Vol] 34.1 % 33 - 37 % [place] MCV (RBC) [Entitic vol] 82.0 fL 82 - 100 fL [place], [place] Monocytes (Bld) [#/Vol] 0.5 10*3/uL 0.2 - 0.8 K/uL [place], [place] Monocytes/100 WBC (Bld) 8.2 % [place] Neutrophils Absolute 5.0 K/uL 1.4 - 6 .5 K/uL [place] Neutrophils/100 WBC (Bld) 75.9 % [place] Platelets (Bld) [#/Vol] 346 10*3/uL 130 - 400 K/uL [place] RBC (Bld) [#/Vol] 4.64 10*6/uL [place] WBC (Bld) [#/Vol] 6.6 10*3/uL 4.8 - 10.8 K/uL [place] D-Dimer, Quantitativeon 04-29 D-Dimer, Quant 0.51 Critically high [place] Comment on above: VTE (DVT or PE) cut- off = 0.50 mg/L FEU Interpretation and review of laboratory results Abnormal [place] [facility] tel. [phone], D-dimer called to and read back by Nurse Ventura Alcala, 05/12/2020 10:19, by MIHAI [place] Ferritinon 05-12-2020 Ferritin [Mass/Vol] 51.6 ng/mL 13 - 150 ng/mL [place], [place] High sensitivity CRPon 05-12 CRP High Sensitivity 13.2 mg/L High 0 - 5 mg/L [place], [place] Interpretation and review of laboratory results Abnormal [place] Magnesiumon 05-12-2020 Magnesium [Mass/Vol] 1.7 mg/dL 1.7 - 2 .4 mg/dL [place], [place] POCT Glucoseon 05-12-2020 Glucose [Mass/Vol] 250 mg/dL High 60 - 115 mg/dl [place] Interpretation and review of laboratory results Abnormal [place] Performed [place] [facility] [place] Comment on above: Notified RN or MD Glucose [Mass/Vol] 223 mg/dL High 60 - 115 mg/dl [place] Interpretation and review of laboratory results Abnormal [place] Performed on [facility] [place] Glucose [Mass/Vol] 287 mg/dL High 60 - 115 mg/dl [place] Interpretation and review of laboratory results Abnormal [place] Performed on [facility] [place] Comment on above: Notified RN or MD Glucose [Mass/Vol] 201 mg/dL High 60 - 115 mg/dl [place] Interpretation and review of laboratory results Abnormal [place] Performed [place] [facility] [place] XR CHEST PORTABLEon 05-12-20 20 Patchy opacities diffusely throughout both lungs, similar to prior. [place] Hemant, Chpo Incoming Radiant Results From [employer] - 05/12/2020 2:01 PM EST XR CHEST PORTABLE Clinical History: pneumonia, hypoxia U07.1 COVID-19 virus infection ICD10. Comparison: 05/08/2020 RESULT: Patchy opacities diffusely throughout both lungs, similar to prior. No pleural effusion. No pneumothorax. Normal pulmonary vascular pattern. Stable cardiomediastinal silhouette. No acute osseous findings. IMPRESSION: Patchy opacities diffusely throughout both lungs, similar to prior. [place] XR CHEST PORTABLE Clinical History: pneumonia, hypoxia U07.1 COVID-19 virus infection ICD10. Comparison: 05/08/2020 RESULT: Patchy opacities diffusely throughout both lungs, similar to prior. No pleural effusion. No pneumothorax. Normal pulmonary vascular pattern. Stable cardiomediastinal silhouette. No acute osseous findings. [place] Brain Natriuretic Peptideon 05-11-2020 Natriuretic peptide B (Bld) [Mass/Vol] 41 pg/mL [place], [place] Comment on above: NT-pro BNP ACUTE [...] [#/Vol] 0.0 10*3/uL 0 - 0.2 K/uL [place] Basophils/100 WBC (Bld) 0.4 % [place] Eosinophils (Bld) [#/Vol] 0.1 10*3/uL 0 - 0.7 K/uL [place] Eosinophils/100 WBC (Bld) 1.7 % [place] Erythrocyte distribution width (RBC) [Ratio] 14.2 % 11.5 - 14.5 % [place] Hematocrit (Bld) [Volume fraction] 37.9 % 37 - 47 % [place] Hemoglobin (Bld) [Mass/Vol] 12.6 g/dL 12 - 16 g/dL [place] Interpretation and review of laboratory results Abnormal [place] Lymphocytes (Bld) [#/Vol] 0.9 10*3/uL Low 1 - 4.8 K/uL [place], [place] Lymphocytes/100 WBC (Bld) 14.5 % [place] MCH (RBC) [Entitic mass] 27.7 pg 27 - 31.3 pg [place] MCHC (RBC) [Mass/Vol] 33.3 % 33 - 37 % [place] MCV (RBC) [Entitic vol] 83.2 fL 82 - 100 fL [place], [place] Monocytes (Bld) [#/Vol] 0.4 10*3/uL 0.2 - 0.8 K/uL [place], [place] Monocytes/100 WBC (Bld) 6.8 % [place] Neutrophils Absolute 4.9 K/uL 1.4 - 6 .5 K/uL [place] Neutrophils/100 WBC (Bld) 76.6 % [place] Platelets (Bld) [#/Vol] 313 10*3/uL 130 - 400 K/uL [place] RBC (Bld) [#/Vol] 4.55 10*6/uL [place] WBC (Bld) [#/Vol] 6.4 10*3/uL 4.8 - 10.8 K/uL [place] Comprehensive Metabolic Pane loco 05-11-2020 Albumin [Mass/Vol] 3.3 g/dL Low 3.5 - 4.6 g/dL [place] ALP [Catalytic activity/Vol] 62 U/L 40 - 130 U/L [place] ALT [Catalytic activity/Vol] 8 U/L 0 - 33 U/L [place] Anion gap [Moles/Vol] 11 mmol/L [place] AST [Catalytic activity/Vol] 11 U/L 0 - 35 U/L [place] Bilirubin Ql (U) 0.4 mg/dL 0.2 - 0.7 mg/dL [place] Calcium [Mass/Vol] 9.2 mg/dL 8.5 - 9.9 mg/dL [place] Chloride [Moles/Vol] 96 mmol/L [place] CO2 [Moles/Vol] 29 [facility] [place] Creatinine [Mass/Vol] 0.49 mg/dL Low 0.5 - 0.9 mg/dL [place] GFR >60.0 >60 [place], [place] Comment on above: >60 mL/min/1.73m2 EG FR, calc. for ages 18 and older using the MDRD formula (not corrected for weight), is valid for stable renal function. GFR Non- >60.0 >60 [place] Comment on above: >60 mL/min/1.73m2 EG FR, calc. for ages 18 and older using the MDRD formula (not corrected for weight), is valid for stable renal function. Globulin (S) [Mass/Vol] 3.1 g/dL 2.3 - 3.5 g/dL [place] Glucose [Mass/Vol] 224 mg/dL High 70 - 99 mg/dL [place] Interpretation and review of laboratory results Abnormal [place] Potassium [Moles/Vol] 3.9 mmol/L [place] Protein [Mass/Vol] 6.4 g/dL 6.3 - 8 g/dL [place], [place] Sodium [Moles/Vol] 136 mmol/L [place] Urea nitrogen [Mass/Vol] 20 mg/dL 6 - 20 mg/dL [place] D-Dimer, Quantitativeon 04-29 D-Dimer, Quant 0.87 Critically high [place] Comment on above: VTE (DVT or PE) cut- off = 0.50 mg/L FEU Interpretation and review of laboratory results Abnormal [place] [facility] tel. [phone], Dimer results called to and read back by Shayna Watkins, 05/11/2020 09:18, by NICK [place] Ferritinon 05-11-2020 Ferritin [Mass/Vol] 107.8 ng/mL 13 - 150 ng/mL [place], [place] High sensitivity CRPon 05-11 CRP High Sensitivity 39.1 mg/L High 0 - 5 mg/L [place], [place] Interpretation and review of laboratory results Abnormal [place] Magnesiumon 05-11-2020 Magnesium [Mass/Vol] 1.7 mg/dL 1.7 - 2 .4 mg/dL [place], [place] Otheron 05-11-2020 Interpretation and review of laboratory results Abnormal [place] Performed on [facility] [place] Comment on above: Sliding Scale POCT Glucoseon 05-11-2020 Glucose [Mass/Vol] 300 mg/dL High 60 - 115 mg/dl [place] Interpretation and review of laboratory results Abnormal [place] Glucose [Mass/Vol] 337 mg/dL High 60 - 115 mg/dl [place], [place] Glucose [Mass/Vol] 291 mg/dL High 60 - 115 mg/dl [place], [place] Glucose [Mass/Vol] 209 mg/dL High 60 - 115 mg/dl [place] Interpretation and review of laboratory results Abnormal [place] Performed on [facility] [place] CBC Auto Differentialon 04-29 Basophils (Bld) [#/Vol] 0.0 10*3/uL 0 - 0.2 K/uL [place], [place] Basophils/100 WBC (Bld) 0.1 % [place] Eosinophils (Bld) [#/Vol] 0.1 10*3/uL 0 - 0.7 K/uL [place], [place] Eosinophils/100 WBC (Bld) 1.3 % [place] Erythrocyte distribution width (RBC) [Ratio] 14.2 % 11.5 - 14.5 % [place] Hematocrit (Bld) [Volume fraction] 36.9 % Low 37 - 47 % [place] Hemoglobin (Bld) [Mass/Vol] 12.6 g/dL 12 - 16 g/dL [place] Interpretation and review of laboratory results Abnormal [place] Lymphocytes (Bld) [#/Vol] 0.9 10*3/uL Low 1 - 4.8 K/uL [place], [place] Lymphocytes/100 WBC (Bld) 12.9 % [place] MCH (RBC) [Entitic mass] 27.6 pg 27 - 31.3 pg [place] MCHC (RBC) [Mass/Vol] 34.0 % 33 - 37 % [place] MCV (RBC) [Entitic vol] 81.2 fL Low 82 - 100 fL [place], [place] Monocytes (Bld) [#/Vol] 0.4 10*3/uL 0.2 - 0.8 K/uL [place], [place] Monocytes/100 WBC (Bld) 5.6 % [place] Neutrophils Absolute 5.8 K/uL 1.4 - 6 .5 K/uL [place], [place] Neutrophils/100 WBC (Bld) 80.1 % [place] Platelets (Bld) [#/Vol] 277 10*3/uL 130 - 400 K/uL [place] RBC (Bld) [#/Vol] 4.55 10*6/uL [place] WBC (Bld) [#/Vol] 7.2 10*3/uL 4.8 - 10.8 K/uL [place] Collection has been rescheduled by LAURENT at 05/10/2020 06:35 Reason: Failed attempt at venipuncture [place] Comprehensive Metabolic Pane loco 05-10-2020 Albumin [Mass/Vol] 3.3 g/dL Low 3.5 - 4.6 g/dL [place] ALP [Catalytic activity/Vol] 71 U/L 40 - 130 U/L [place] ALT [Catalytic activity/Vol] 9 U/L 0 - 33 U/L [place] Anion gap [Moles/Vol] 17 mmol/L [place] AST [Catalytic activity/Vol] 16 U/L 0 - 35 U/L [place] Bilirubin Ql (U) 0.4 mg/dL 0.2 - 0.7 mg/dL [place] Calcium [Mass/Vol] 9.4 mg/dL 8.5 - 9.9 mg/dL [place] Chloride [Moles/Vol] 97 mmol/L [place], [place] CO2 [Moles/Vol] 25 mmol/L [facility] [place] Creatinine [Mass/Vol] 0.45 mg/dL Low 0.5 - 0.9 mg/dL [place], [place] GFR >60.0 >60 [place], [place] Comment on above: >60 mL/min/1.73m2 EG FR, calc. for ages 18 and older using the MDRD formula (not corrected for weight), is valid for stable renal function. GFR Non- >60.0 >60 [place] Comment on above: >60 mL/min/1.73m2 EG FR, calc. for ages 18 and older using the MDRD formula (not corrected for weight), is valid for stable renal function. Globulin (S) [Mass/Vol] 3.8 g/dL High 2.3 - 3.5 g/dL [place] Glucose [Mass/Vol] 119 mg/dL High 70 - 99 mg/dL [place] Potassium [Moles/Vol] 3.7 mmol/L [place] Protein [Mass/Vol] 7.1 g/dL 6.3 - 8 g/dL [place], [place] Sodium [Moles/Vol] 139 mmol/L [place] Urea nitrogen [Mass/Vol] 18 mg/dL 6 - 20 mg/dL [place] D-Dimer, Quantitativeon 04-29 D-Dimer, Quant 0.72 Critically high [place] Comment on above: VTE (DVT or PE) cut- off = 0.50 mg/L FEU CALL [address] tel. [phone], dimer results called to and read back by shalom hunt, 05/10/2020 09:00, by KELLY Collection has been rescheduled by LAURENT at 05/10/2020 06:35 Reason: Failed attempt at venipuncture [place] Ferritinon 05-10-2020 Ferritin [Mass/Vol] 78.2 ng/mL 13 - 150 ng/mL [place] Collection has been rescheduled by LAURENT at 05/10/2020 06:35 Reason: Failed attempt at venipuncture [place] High sensitivity CRPon 05-10 CRP High Sensitivity 43 mg/L High 0 - 5 mg/L [place] Collection has been rescheduled by LAURENT at 05/10/2020 06:35 Reason: Failed attempt at venipuncture [place] Magnesiumon 05-10-2020 Magnesium [Mass/Vol] 1.7 mg/dL 1.7 - 2 .4 mg/dL [place], [place] Otheron 05-10-2020 Interpretation and review of laboratory results Abnormal [place] Collection has been rescheduled by LAURENT at 05/10/2020 06:35 Reason: Failed attempt at venipuncture [place] Interpretation and review of laboratory results Abnormal [place] POCT Glucoseon 05-10-2020 Glucose [Mass/Vol] 358 mg/dL High 60 - 115 mg/dl [place] Interpretation and review of laboratory results Abnormal [place] Comment on above: Notified RN or MD Glucose [Mass/Vol] 340 mg/dL High 60 - 115 mg/dl [place] Interpretation and review of laboratory results Abnormal [place] Comment on above: Sliding Scale Glucose [Mass/Vol] 248 mg/dL High 60 - 115 mg/dl [place] Interpretation and review of laboratory results Abnormal [place] Glucose [Mass/Vol] 119 mg/dL High 60 - 115 mg/dl [place] Performed on [facility] [place] CBC Auto Differentialon 04-29 Basophils (Bld) [#/Vol] 0.0 10*3/uL 0 - 0.2 K/uL [place], [place] Basophils/100 WBC (Bld) 0.1 % [place] Eosinophils (Bld) [#/Vol] 0.0 10*3/uL 0 - 0.7 K/uL [place], [place] Eosinophils/100 WBC (Bld) 0.1 % [place] Erythrocyte distribution width (RBC) [Ratio] 14.1 % 11.5 - 14.5 % [place] Hematocrit (Bld) [Volume fraction] 35.5 % Low 37 - 47 % [place] Hemoglobin (Bld) [Mass/Vol] 12.0 g/dL 12 - 16 g/dL [place] Interpretation and review of laboratory results Abnormal [place] Lymphocytes (Bld) [#/Vol] 0.6 10*3/uL Low 1 - 4.8 K/uL [place] Lymphocytes/100 WBC (Bld) 12.1 % [place] MCH (RBC) [Entitic mass] 27.8 pg 27 - 31.3 pg [place] MCHC (RBC) [Mass/Vol] 33.8 % 33 - 37 % [place] MCV (RBC) [Entitic vol] 82.3 fL 82 - 100 fL [place] Monocytes (Bld) [#/Vol] 0.3 10*3/uL 0.2 - 0.8 K/uL [place], [place] Monocytes/100 WBC (Bld) 6.5 % [place] Neutrophils Absolute 4.4 K/uL 1.4 - 6 .5 K/uL [place] Neutrophils/100 WBC (Bld) 81.2 % [place] Platelets (Bld) [#/Vol] 260 10*3/uL 130 - 400 K/uL [place] RBC (Bld) [#/Vol] 4.32 10*6/uL [place] WBC (Bld) [#/Vol] 5.4 10*3/uL 4.8 - 10.8 K/uL [place] Comprehensive Metabolic Pane loco 05-09-2020 Albumin [Mass/Vol] 3.4 g/dL Low 3.5 - 4.6 g/dL [place] ALP [Catalytic activity/Vol] 73 U/L 40 - 130 U/L [place] ALT [Catalytic activity/Vol] 9 U/L 0 - 33 U/L [place] Anion gap [Moles/Vol] 13 mmol/L [place] AST [Catalytic activity/Vol] 13 U/L 0 - 35 U/L [place] Bilirubin Ql (U) 0.4 mg/dL 0.2 - 0.7 mg/dL [place] Calcium [Mass/Vol] 8.7 mg/dL 8.5 - 9.9 mg/dL [place] Chloride [Moles/Vol] 101 mmol/L [place] CO2 [Moles/Vol] 25 mmol/L [place] Creatinine [Mass/Vol] 0.39 mg/dL Low 0.5 - 0.9 mg/dL [place] GFR >60.0 >60 [place] Comment on above: >60 mL/min/1.73m2 EG FR, calc. for ages 18 and older using the MDRD formula (not corrected for weight), is valid for stable renal function. GFR Non- >60.0 >60 [place] Comment on above: >60 mL/min/1.73m2 EG FR, calc. for ages 18 and older using the MDRD formula (not corrected for weight), is valid for stable renal function. Globulin (S) [Mass/Vol] 3.2 g/dL 2.3 - 3.5 g/dL [place], [place] Glucose [Mass/Vol] 204 mg/dL High 70 - 99 mg/dL [place] Interpretation and review of laboratory results Abnormal [place] Potassium [Moles/Vol] 3.3 mmol/L Low [place] Protein [Mass/Vol] 6.6 g/dL 6.3 - 8 g/dL [place] Sodium [Moles/Vol] 139 mmol/L [place] Urea nitrogen [Mass/Vol] 16 mg/dL 6 - 20 mg/dL [place] D-Dimer, Quantitativeon 11- D-Dimer, Quant 0.87 Critically high [place] Comment on above: VTE (DVT or PE) cut- off = 0.50 mg/L FEU Interpretation and review of laboratory results Abnormal [place] CALL [facility] LC[facility] tel. [phone], DIMER results called to and read back by Belgica Carpenter, 05/09/2020 08:25, by RAKESH [place] Ferritinon 05-09-2020 Ferritin [Mass/Vol] 70.3 ng/mL 13 - 150 ng/mL [place], [place] High sensitivity CRPon 05-09 CRP High Sensitivity 41.6 mg/L High 0 - 5 mg/L [place] Interpretation and review of laboratory results Abnormal [place] Magnesiumon 05-09-2020 Magnesium [Mass/Vol] 1.7 mg/dL 1.7 - 2 .4 mg/dL [place], [place] POCT Glucoseon 05-09-2020 Glucose [Mass/Vol] 266 mg/dL High 60 - 115 mg/dl [place] Interpretation and review of laboratory results Abnormal [place] Glucose [Mass/Vol] 298 mg/dL High 60 - 115 mg/dl [place] Interpretation and review of laboratory results Abnormal [place] Glucose [Mass/Vol] 222 mg/dL High 60 - 115 mg/dl [place] Interpretation and review of laboratory results Abnormal [place] Glucose [Mass/Vol] 196 mg/dL High 60 - 115 mg/dl [place] Interpretation and review of laboratory results Abnormal [place] Performed on ACCU-CHEK [place], [place] CBC Auto Differentialon 04-29 Basophils (Bld) [#/Vol] 0.0 10*3/uL 0 - 0.2 K/uL [place], [place] Basophils/100 WBC (Bld) 0.1 % [place] Eosinophils (Bld) [#/Vol] 0.0 10*3/uL 0 - 0.7 K/uL [place] Eosinophils/100 WBC (Bld) 0 % [place] Erythrocyte distribution width (RBC) [Ratio] 14.2 % 11.5 - 14.5 % [place] Hematocrit (Bld) [Volume fraction] 36.7 % Low 37 - 47 % [place] Hemoglobin (Bld) [Mass/Vol] 12.1 g/dL 12 - 16 g/dL [place] Interpretation and review of laboratory results Abnormal [place] Lymphocytes (Bld) [#/Vol] 0.9 10*3/uL Low 1 - 4.8 K/uL [place], [place] Lymphocytes/100 WBC (Bld) 19.4 % [place] MCH (RBC) [Entitic mass] 27.1 pg 27 - 31.3 pg [place] MCHC (RBC) [Mass/Vol] 32.9 % Low 33 - 37 % [place] MCV (RBC) [Entitic vol] 82.3 fL 82 - 100 fL [place], [place] Monocytes (Bld) [#/Vol] 0.4 10*3/uL 0.2 - 0.8 K/uL [place], [place] Monocytes/100 WBC (Bld) 9.1 % [place] Neutrophils Absolute 3.4 K/uL 1.4 - 6 .5 K/uL [place], [place] Neutrophils/100 WBC (Bld) 71.4 % [place] Platelets (Bld) [#/Vol] 241 10*3/uL 130 - 400 K/uL [place] RBC (Bld) [#/Vol] 4.46 10*6/uL [place] WBC (Bld) [#/Vol] 4.8 10*3/uL 4.8 - 10.8 K/uL [place] Comprehensive Metabolic Pane loco 05-08-2020 Albumin [Mass/Vol] 3.2 g/dL Low 3.5 - 4.6 g/dL [place] ALP [Catalytic activity/Vol] 68 U/L 40 - 130 U/L [place] ALT [Catalytic activity/Vol] 10 U/L 0 - 33 U/L [place] Anion gap [Moles/Vol] 11 mmol/L [place] AST [Catalytic activity/Vol] 18 U/L 0 - 35 U/L [place] Bilirubin Ql (U) 0.3 mg/dL 0.2 - 0.7 mg/dL [place] Calcium [Mass/Vol] 8.5 mg/dL 8.5 - 9.9 mg/dL [place] Chloride [Moles/Vol] 100 mmol/L [place] CO2 [Moles/Vol] [facility] [place] Creatinine [Mass/Vol] 0.51 mg/dL 0.5 - 0.9 mg/dL [place], [place] GFR >60.0 >60 [place], [place] Comment on above: >60 mL/min/1.73m2 EG FR, calc. for ages 18 and older using the MDRD formula (not corrected for weight), is valid for stable renal function. GFR Non- >60.0 >60 [place], [place] Comment on above: >60 mL/min/1.73m2 EG FR, calc. for ages 18 and older using the MDRD formula (not corrected for weight), is valid for stable renal function. Globulin (S) [Mass/Vol] 3.6 g/dL High 2.3 - 3.5 g/dL [place], [place] Glucose [Mass/Vol] 169 mg/dL High 70 - 99 mg/dL [place] Interpretation and review of laboratory results Abnormal [place] Potassium [Moles/Vol] 3.7 mmol/L [place] Protein [Mass/Vol] 6.8 g/dL 6.3 - 8 g/dL [place] Sodium [Moles/Vol] 136 mmol/L [place], [place] Urea nitrogen [Mass/Vol] 15 mg/dL 6 - 20 mg/dL [place] D-Dimer, Quantitativeon 11-1 0-2020 D-Dimer, Quant 0.98 Critically high [place], [place] Comment on above: VTE (DVT or PE) cut- off = 0.50 mg/L FEU Interpretation and review of laboratory results Abnormal [place] CALL [facility] LC[facility] tel. [phone], D dimer results called to and read back by Stephenie Britton, 05/08/2020 09:43, by AVINASH [place] Ferritinon 05-08-2020 Ferritin [Mass/Vol] 91.5 ng/mL 13 - 150 ng/mL [place], [place] Hemoglobin A1con 05-08-2020 HbA1c (Bld) [Mass fraction] 11.6 % High 4.8 - 5.9 % [place] Interpretation and review of laboratory results Abnormal [place], [place] High sensitivity CRPon 05-08 CRP High Sensitivity 12 mg/L High 0 - 5 mg/L [place], [place] Interpretation and review of laboratory results Abnormal [place] Magnesiumon 05-08-2020 Magnesium [Mass/Vol] 1.8 mg/dL 1.7 - 2 .4 mg/dL [place], [place] Otheron 05-08-2020 Dispense Status Blood Bank transfused [place], [place] POCT Glucoseon 05-08-2020 Glucose [Mass/Vol] 410 mg/dL Critically high 60 - 1 15 mg/dl [place] Interpretation and review of laboratory results Abnormal [place] Performed on ACCU-CHEK [place], [place] Comment on above: Notified RN or MD Glucose [Mass/Vol] 208 mg/dL High 60 - 115 mg/dl [place] Interpretation and review of laboratory results Abnormal [place] Performed on ACCU-CHEK [place], [place] Glucose [Mass/Vol] 203 mg/dL High 60 - 115 mg/dl [place] Interpretation and review of laboratory results Abnormal [place] Performed on ACCU-CHEK [place] Glucose [Mass/Vol] 166 mg/dL High 60 - 115 mg/dl [place] Interpretation and review of laboratory results Abnormal [place] Performed on ACCU-CHEK [place] Comment on above: Notified RN or MD Prepare COVID-19 Convalescen t Plasma, 2 Unitson 05-08-2020 Blood product unit ID (Dose) [#] [id number] [place] Blood product unit ID (Dose) [#] [id number] [place] Description Blood Bank [id number] [place] Description Blood Bank [id number] [place] Product Code Blood Bank [id number] [place], [place] Product Code Blood Bank [id number] [place] XR CHEST PORTABLEon 05-08-20 20 INR Coag (Bld) [Relative time] BILATERAL PNEUMONIA [place], [place] EXAMINATION: XR CHES T PORTABLE CLINICAL [...] visualized in the left lower lung zone. [place] Hemant, Chpo Incoming Radiant Results From [employer] - 05/08/2020 8:14 AM EST EXAMINATION: XR [...] left lower lung zone. IMPRESSION: BILATERAL PNEUMONIA [place] Basic Metabolic Panelon - Anion gap [Moles/Vol] 10 mmol/L [place] Calcium [Mass/Vol] 8.6 mg/dL 8.5 - 9.9 mg/dL [place] Chloride [Moles/Vol] 102 mmol/L [place], [place] CO2 [Moles/Vol] 24 mmol/L [place] Creatinine [Mass/Vol] 0.61 mg/dL 0.5 - 0.9 mg/dL [place] GFR >60.0 >60 [place] Comment on above: >60 mL/min/1.73m2 EG FR, calc. for ages 18 and older using the MDRD formula (not corrected for weight), is valid for stable renal function. GFR Non- >60.0 >60 [facility], [place] Comment on above: >60 mL/min/1.73m2 EG FR, calc. for ages 18 and older using the MDRD formula (not corrected for weight), is valid for stable renal function. Glucose [Mass/Vol] 158 mg/dL High 70 - 99 mg/dL [place] Potassium [Moles/Vol] 4.1 mmol/L [facility], [place] Sodium [Moles/Vol] 136 mmol/L [place], [place] Urea nitrogen [Mass/Vol] 16 mg/dL 6 - 20 mg/dL [place] Anion gap [Moles/Vol] 9 mmol/L [facility], [place] Calcium [Mass/Vol] 8.6 mg/dL 8.5 - 9.9 mg/dL [place] Chloride [Moles/Vol] 103 mmol/L [place] CO2 [Moles/Vol] 22 mmol/L [place] Creatinine [Mass/Vol] 0.47 mg/dL Low 0.5 - 0.9 mg/dL [place] GFR >60.0 >60 [place], [place] Comment on above: >60 mL/min/1.73m2 EG FR, calc. for ages 18 and older using the MDRD formula (not corrected for weight), is valid for stable renal function. GFR Non- >60.0 >60 [place] Comment on above: >60 mL/min/1.73m2 EG FR, calc. for ages 18 and older using the MDRD formula (not corrected for weight), is valid for stable renal function. Glucose [Mass/Vol] 123 mg/dL High 70 - 99 mg/dL [facility], [place] Potassium [Moles/Vol] 3.9 mmol/L [facility], [place] Sodium [Moles/Vol] 134 mmol/L [place], [place] Urea nitrogen [Mass/Vol] 16 mg/dL 6 - 20 mg/dL [place] Anion gap [Moles/Vol] 9 mmol/L [place] Calcium [Mass/Vol] 9.0 mg/dL 8.5 - 9.9 mg/dL [place] Chloride [Moles/Vol] 100 mmol/L [place] CO2 [Moles/Vol] 22 mmol/L [place] Creatinine [Mass/Vol] 0.55 mg/dL 0.5 - 0.9 mg/dL [place] GFR >60.0 >60 [place] Comment on above: >60 mL/min/1.73m2 EG FR, calc. for ages 18 and older using the MDRD formula (not corrected for weight), is valid for stable renal function. GFR Non- >60.0 >60 [place] Comment on above: >60 mL/min/1.73m2 EG FR, calc. for ages 18 and older using the MDRD formula (not corrected for weight), is valid for stable renal function. Glucose [Mass/Vol] 244 mg/dL High 70 - 99 mg/dL [place] Potassium [Moles/Vol] 4.0 mmol/L [place] Sodium [Moles/Vol] 131 mmol/L Low [place], [place] Urea nitrogen [Mass/Vol] 15 mg/dL 6 - 20 mg/dL [place] CBC Auto Differentialon 11-0 Basophils (Bld) [#/Vol] 0.0 10*3/uL 0 - 0.2 K/uL [place], [place] Basophils/100 WBC (Bld) 0.3 % [place] Eosinophils (Bld) [#/Vol] 0.0 10*3/uL 0 - 0.7 K/uL [place] Eosinophils/100 WBC (Bld) 0 % [place] Erythrocyte distribution width (RBC) [Ratio] 14.6 % High 11.5 - 14.5 % [place] Hematocrit (Bld) [Volume fraction] 36.9 % Low 37 - 47 % [place] Hemoglobin (Bld) [Mass/Vol] 12.3 g/dL 12 - 16 g/dL [place] Interpretation and review of laboratory results Abnormal [place] Lymphocytes (Bld) [#/Vol] 0.9 10*3/uL Low 1 - 4.8 K/uL [place], [place] Lymphocytes/100 WBC (Bld) 17.8 % [place] MCH (RBC) [Entitic mass] 27.7 pg 27 - 31.3 pg [place] MCHC (RBC) [Mass/Vol] 33.4 % 33 - 37 % [place] MCV (RBC) [Entitic vol] 82.8 fL 82 - 100 fL [place], [place] Monocytes (Bld) [#/Vol] 0.4 10*3/uL 0.2 - 0.8 K/uL [place], [place] Monocytes/100 WBC (Bld) 7.6 % [place] Neutrophils Absolute 3.7 K/uL 1.4 - 6 .5 K/uL [place] Neutrophils/100 WBC (Bld) 74.3 % [place] Platelets (Bld) [#/Vol] 264 10*3/uL 130 - 400 K/uL [place] RBC (Bld) [#/Vol] 4.46 10*6/uL [place] WBC (Bld) [#/Vol] 5.0 10*3/uL 4.8 - 10.8 K/uL [place] Comprehensive Metabolic Pane l w/ Reflex to MGon 05-07-2020 Albumin [Mass/Vol] 3.4 g/dL Low 3.5 - 4.6 g/dL [place] ALP [Catalytic activity/Vol] 67 U/L 40 - 130 U/L [place] ALT [Catalytic activity/Vol] 11 U/L 0 - 33 U/L [place] Anion gap [Moles/Vol] 8 mmol/L Low [place] AST [Catalytic activity/Vol] 18 U/L 0 - 35 U/L [place] Bilirubin Ql (U) <0.2 0.2 - 0.7 mg/dL [place] Calcium [Mass/Vol] 8.9 mg/dL 8.5 - 9.9 mg/dL [place] Chloride [Moles/Vol] 100 mmol/L [place] CO2 [Moles/Vol] 24 [facility]/L [facility] [place] Creatinine [Mass/Vol] 0.55 mg/dL 0.5 - 0.9 mg/dL [place] GFR >60.0 >60 [place] Comment on above: >60 mL/min/1.73m2 EG FR, calc. for ages 18 and older using the MDRD formula (not corrected for weight), is valid for stable renal function. GFR Non- >60.0 >60 [place] Comment on above: >60 mL/min/1.73m2 EG FR, calc. for ages 18 and older using the MDRD formula (not corrected for weight), is valid for stable renal function. Globulin (S) [Mass/Vol] 2.9 g/dL 2.3 - 3.5 g/dL [place] Glucose [Mass/Vol] 161 mg/dL High 70 - 99 mg/dL [place] Interpretation and review of laboratory results Abnormal [place] Potassium [Moles/Vol] 3.6 mmol/L [place] Protein [Mass/Vol] 6.3 g/dL 6.3 - 8 g/dL [place] Sodium [Moles/Vol] 132 mmol/L Low [place], [place] Urea nitrogen [Mass/Vol] 15 mg/dL 6 - 20 mg/dL [place] EKG 12 Lead - Chest Painon 1 07-07-2019 Atrial Rate 127 BPM [place], [place] P [place] 51 degrees [place] P-R Interval 130 ms [place], [place] Q-T Interval 334 ms [place] QRS Duration 82 ms [place] QTc Calculation (Bazett) 485 ms [place], [place] R [place] -5 degrees [place], [place] T [place] 52 degrees [place] Ventricular Rate 127 BPM [place] Hemant, Chpo Incoming Results From [place] - 05/07/2020 10:37 AM EST Sinus tachycardia Otherwise normal ECG When compared with ECG of 13-JAN-2020 22:18, T wave inversion no longer evident in Inferior leads Confirmed by LYNN RAE ([id number]) on 05/07/2020 10:37:40 AM [place] Sinus tachycardia Otherwise normal ECG When compared with ECG of 13-JAN-2020 22:18, T wave inversion no longer evident in Inferior leads Confirmed by LYNN RAE ([id number]) on 05/07/2020 10:37:40 AM [place] Magnesiumon 05-07-2020 Magnesium [Mass/Vol] 1.8 mg/dL 1.7 - 2 .4 mg/dL [place] Magnesium [Mass/Vol] 2.0 mg/dL 1.7 - 2 .4 mg/dL [place] Magnesium [Mass/Vol] 1.9 mg/dL 1.7 - 2 .4 mg/dL [place] Magnesium [Mass/Vol] 2.1 mg/dL 1.7 - 2 .4 mg/dL [place], [place] Otheron 05-07-2020 Interpretation and review of laboratory results Abnormal [place] Interpretation and review of laboratory results Abnormal [place] Collection has been rescheduled by LAURENT at 05/07/2020 08:11 Reason: Failed attempt at venipuncture [place] Performed on ACCU-CHEK [place] Interpretation and review of laboratory results Abnormal [place] POCT Arterialon 05-07-2020 Base Excess, Arterial -1 [place] Calcium [Mass/Vol] 1.18 mmol/L 1.12 - 1.32 mmol/L [place] Chloride [Moles/Vol] 105 mmol/L [place], [place] Creatinine [Mass/Vol] 0.6 mg/dL 0.6 - 1.1 mg/dL [place], KY FIO2 3 [place] GFR >60 >60 [place] Comment on above: >60 mL/min/1.73m2 EG FR, calc. for ages 18 and older using the MDRD formula (not corrected for weight), is valid for stable renal function. GFR Non- >60 >60 [place] Comment on above: >60 mL/min/1.73m2 EG FR, calc. for ages 18 and older using the MDRD formula (not corrected for weight), is valid for stable renal function. Glucose [Mass/Vol] 423 mg/dL Critically high 60 - 1 15 mg/dl [place] HCO3, Arterial 22.6 mmol/L 21 - 29 mmol/L [place] Hematocrit (Bld) [Volume fraction] 36 % 36 - 48 % [place] Hemoglobin (Bld) [Mass/Vol] 12.3 g/dL [place] Interpretation and review of laboratory results Abnormal [place] Lactate [Moles/Vol] 2.03 mmol/L High 0.4 - 2 mmol/L [place], [place] Oxygen saturation in Blood 86 % Critically low 93 - 100 % [place] pCO2, Arterial 32 Low [place], [place] Performed on SEE BELOW [place], [place] Comment on above: Performed on POC Sample Type: Arterial Draw site: R Brach Oxygen Delivery System: Cannula Critical action: Notify SHALOM Critical notify: rl Notify date: 07-May-20 Notify time: 16:32:29 pH, Arterial 7.456 High [place], [place] pO2, Arterial 48 Critically high [place] Potassium [Moles/Vol] 4.2 mmol/L [place] Sample Type ART [place], [place] Sodium [Moles/Vol] 137 mmol/L [place], [place] TCO2, Arterial 24 [place], [place] POCT Glucoseon 05-07-2020 Glucose [Mass/Vol] 294 mg/dL High 60 - 115 mg/dl [place] Interpretation and review of laboratory results Abnormal [place] Performed on ACCU-CHEK [place], [place] Glucose [Mass/Vol] 354 mg/dL High 60 - 115 mg/dl [place] Interpretation and review of laboratory results Abnormal [place] Glucose [Mass/Vol] 147 mg/dL High 60 - 115 mg/dl [place], [place] Interpretation and review of laboratory results Abnormal [place] Glucose [Mass/Vol] 118 mg/dL High 60 - 115 mg/dl [place] Interpretation and review of laboratory results Abnormal [place] Glucose [Mass/Vol] 125 mg/dL High 60 - 115 mg/dl [place], [place] Interpretation and review of laboratory results Abnormal [place] Glucose [Mass/Vol] 132 mg/dL High 60 - 115 mg/dl [place], [place] Interpretation and review of laboratory results Abnormal [place] Glucose [Mass/Vol] 137 mg/dL High 60 - 115 mg/dl [place], [place] Interpretation and review of laboratory results Abnormal [place] Glucose [Mass/Vol] 153 mg/dL High 60 - 115 mg/dl [place], [place] Interpretation and review of laboratory results Abnormal [place] Glucose [Mass/Vol] 179 mg/dL High 60 - 115 mg/dl [place] Interpretation and review of laboratory results Abnormal [place] Glucose [Mass/Vol] 203 mg/dL High 60 - 115 mg/dl [place] Interpretation and review of laboratory results Abnormal [place], [place] Performed on ACCU-CHEK [place] Glucose [Mass/Vol] 207 mg/dL High 60 - 115 mg/dl [place] Interpretation and review of laboratory results Abnormal [place] Glucose [Mass/Vol] 223 mg/dL High 60 - 115 mg/dl [place] Phosphoruson 05-07-2020 Phosphate [Mass/Vol] 1.3 mg/dL Low 2.3 - 4 .8 mg/dL [place], [place] Phosphate [Mass/Vol] 1.3 mg/dL Low 2.3 - 4 .8 mg/dL [place] Interpretation and review of laboratory results Abnormal [place] Phosphate [Mass/Vol] 1.3 mg/dL Low 2.3 - 4 .8 mg/dL [place] Phosphate [Mass/Vol] 1.5 mg/dL Low 2.3 - 4 .8 mg/dL [place] RENAL FUNCTION PANELon 05-07 Albumin [Mass/Vol] 3.3 g/dL Low 3.5 - 4.6 g/dL [place] Anion gap [Moles/Vol] 14 mmol/L [place] Calcium [Mass/Vol] 8.9 mg/dL 8.5 - 9.9 mg/dL [place] Chloride [Moles/Vol] 106 mmol/L [place], [place] CO2 [Moles/Vol] 19 mmol/L [place] Creatinine [Mass/Vol] 0.6 mg/dL 0.5 - 0.9 mg/dL [place] GFR >60.0 >60 [place], [place] Comment on above: >60 mL/min/1.73m2 EG FR, calc. for ages 18 and older using the MDRD formula (not corrected for weight), is valid for stable renal function. GFR Non- >60.0 >60 [place] Comment on above: >60 mL/min/1.73m2 EG FR, calc. for ages 18 and older using the MDRD formula (not corrected for weight), is valid for stable renal function. Glucose [Mass/Vol] 396 mg/dL High 70 - 99 mg/dL [place], [place] Interpretation and review of laboratory results Abnormal [place] Phosphate [Mass/Vol] 2.3 mg/dL 2.3 - 4 .8 mg/dL [place] Potassium [Moles/Vol] 4.3 mmol/L [place] Sodium [Moles/Vol] 139 mmol/L [place], [place] Urea nitrogen [Mass/Vol] 19 mg/dL 6 - 20 mg/dL [place] Collection has been rescheduled by SAUDE at 05/07/2020 14:35 Reason: Add [place], [place] TYPE AND SCREENon 05-07-2020 ABO/Rh Positive [place] XR CHEST PORTABLEon 05-07-20 20 Interval improvement but persistence of bilateral pneumonia. [place] Exam: XR CHEST GAL BLE History: Hypoxia. Code 19 pneumonia. Technique: AP portable view of the chest obtained. Comparison: Portable chest radiograph from May 05, 2020 Findings: The cardiomediastinal silhouette is within normal limits. Interval improvement but persistence of patchy bilateral airspace opacities. No pneumothorax or pleural effusion. No acute osseous abnormality. [place] Hemant, Chpo Incoming Radiant Results From [employer] - 05/07/2020 4:58 PM EST Exam: XR [...] Interval improvement but persistence of bilateral pneumonia. [place] Basic Metabolic Panelon 11-0 Anion gap [Moles/Vol] 15 mmol/L [place] Calcium [Mass/Vol] 9.2 mg/dL 8.5 - 9.9 mg/dL [place] Chloride [Moles/Vol] 96 mmol/L [place], [place] CO2 [Moles/Vol] 20 mmol/L [facility] [place] Creatinine [Mass/Vol] 0.73 mg/dL 0.5 - 0.9 mg/dL [place] GFR >60.0 >60 [place], [place] Comment on above: >60 mL/min/1.73m2 EG FR, calc. for ages 18 and older using the MDRD formula (not corrected for weight), is valid for stable renal function. GFR Non- >60.0 >60 [place], [place] Comment on above: >60 mL/min/1.73m2 EG FR, calc. for ages 18 and older using the MDRD formula (not corrected for weight), is valid for stable renal function. Glucose [Mass/Vol] 624 mg/dL Critically high 70 - 9 9 mg/dL [place] Interpretation and review of laboratory results Abnormal [place] Potassium [Moles/Vol] 4.8 mmol/L [place] Sodium [Moles/Vol] 131 mmol/L Low [place], [place] Urea nitrogen [Mass/Vol] 17 mg/dL 6 - 20 mg/dL [place] CALL [facility] LC[facility] tel. [phone], GLU results called to and read back by Belgica Carpenter, 05/06/2020 18:58, by RAKESH [place], [place] CBC Auto Differentialon 11-0 Basophils (Bld) [#/Vol] 0.0 10*3/uL 0 - 0.2 K/uL [place], [place] Basophils/100 WBC (Bld) 0.1 % [place] Eosinophils (Bld) [#/Vol] 0.0 10*3/uL 0 - 0.7 K/uL [place], [place] Eosinophils/100 WBC (Bld) 0 % [place] Erythrocyte distribution width (RBC) [Ratio] 14.7 % High 11.5 - 14.5 % [place] Hematocrit (Bld) [Volume fraction] 39.2 % 37 - 47 % [place] Hemoglobin (Bld) [Mass/Vol] 13.1 g/dL 12 - 16 g/dL [place] Interpretation and review of laboratory results Abnormal [place] Lymphocytes (Bld) [#/Vol] 0.8 10*3/uL Low 1 - 4.8 K/uL [place], [place] Lymphocytes/100 WBC (Bld) 23.1 % [place] MCH (RBC) [Entitic mass] 27.7 pg 27 - 31.3 pg [place] MCHC (RBC) [Mass/Vol] 33.5 % 33 - 37 % [place] MCV (RBC) [Entitic vol] 82.8 fL 82 - 100 fL [place], [place] Monocytes (Bld) [#/Vol] 0.4 10*3/uL 0.2 - 0.8 K/uL [place], [place] Monocytes/100 WBC (Bld) 10.2 % [place] Neutrophils Absolute 2.3 K/uL 1.4 - 6 .5 K/uL [place], [place] Neutrophils/100 WBC (Bld) 66.6 % [place] Platelets (Bld) [#/Vol] 254 10*3/uL 130 - 400 K/uL [place] RBC (Bld) [#/Vol] 4.74 10*6/uL [place] WBC (Bld) [#/Vol] 3.4 10*3/uL Low 4.8 - 10.8 K/uL [place] Comprehensive Metabolic Pane l w/ Reflex to MGon 05-06-2020 Albumin [Mass/Vol] 3.7 g/dL 3.5 - 4.6 g/dL [place] ALP [Catalytic activity/Vol] 76 U/L 40 - 130 U/L [place] ALT [Catalytic activity/Vol] 13 U/L 0 - 33 U/L [place] Anion gap [Moles/Vol] 16 mmol/L High [place] AST [Catalytic activity/Vol] 21 U/L 0 - 35 U/L [place] Bilirubin Ql (U) 0.3 mg/dL 0.2 - 0.7 mg/dL [place] Calcium [Mass/Vol] 8.9 mg/dL 8.5 - 9.9 mg/dL [place] Chloride [Moles/Vol] 97 mmol/L [place] CO2 [Moles/Vol] 20 [facility] [place] Creatinine [Mass/Vol] 0.53 mg/dL 0.5 - 0.9 mg/dL [place] GFR >60.0 >60 [place] Comment on above: >60 mL/min/1.73m2 EG FR, calc. for ages 18 and older using the MDRD formula (not corrected for weight), is valid for stable renal function. GFR Non- >60.0 >60 [place], [place] Comment on above: >60 mL/min/1.73m2 EG FR, calc. for ages 18 and older using the MDRD formula (not corrected for weight), is valid for stable renal function. Globulin (S) [Mass/Vol] 3.8 g/dL High 2.3 - 3.5 g/dL [place], [place] Glucose [Mass/Vol] 330 mg/dL High 70 - 99 mg/dL [place] Interpretation and review of laboratory results Abnormal [place] Potassium [Moles/Vol] 4.2 mmol/L [place] Protein [Mass/Vol] 7.5 g/dL 6.3 - 8 g/dL [place] Sodium [Moles/Vol] 133 mmol/L Low [place], [place] Urea nitrogen [Mass/Vol] 11 mg/dL 6 - 20 mg/dL [place] Hemoglobin A1con 05-06-2020 HbA1c (Bld) [Mass fraction] 11.5 % High 4.8 - 5.9 % [place] Interpretation and review of laboratory results Abnormal [place] add [place] POCT Glucoseon 05-06-2020 Glucose [Mass/Vol] 273 mg/dL High 60 - 115 mg/dl [place] Interpretation and review of laboratory results Abnormal [place] Performed on ACCU-CHEK [place] Glucose [Mass/Vol] 449 mg/dL Critically high 60 - 1 15 mg/dl [place] Interpretation and review of laboratory results Abnormal [place] Performed on ACCU-CHEK [place] Glucose [Mass/Vol] 566 mg/dL Critically high 60 - 1 15 mg/dl [place] Interpretation and review of laboratory results Abnormal [place] Performed on ACCU-CHEK [place] Glucose [Mass/Vol] 560 mg/dL Critically high 60 - 1 15 mg/dl [place] Interpretation and review of laboratory results Abnormal [place] Performed on ACCU-CHEK [place] US DUP LOWER EXTREMITIES STEPHANIE ATERAL VENOUSon 05-06-2020 NO SONOGRAPHIC EVIDE NCE OF DEEP VENOUS THROMBOSIS WITHIN THE BILATERAL LOWER EXTREMITIES. [place] VENOUS DUPLEX ULTRAS OUND OF THE BILATERAL LOWER EXTREMITY CLINICAL HISTORY: COVID, r/o dvt COMPARISON: NONE AVAILABLE TECHNIQUE: Sonographic imaging of the deep venous system of the bilateral lower extremities was performed by a registered web manager and the images were submitted for interpretation. FINDINGS: The common femoral, superficial femoral, and popliteal veins demonstrate normal color flow, augmentation, and compressibility. No venous duplex ultrasound evidence of DVT in the bilateral lower extremities. [place], [place] Hemant, Chpo Incoming Radiant Results From [employer] - 05/06/2020 7:58 AM EST VENOUS DUPLEX ULTRASOUND OF THE BILATERAL LOWER EXTREMITY CLINICAL HISTORY: COVID, r/o dvt COMPARISON: NONE AVAILABLE TECHNIQUE: Sonographic imaging of the deep venous system of the bilateral lower extremities was performed by a registered web manager and the images were submitted for interpretation. FINDINGS: The common femoral, superficial femoral, and popliteal veins demonstrate normal color flow, augmentation, and compressibility. No venous duplex ultrasound evidence of DVT in the bilateral lower extremities. IMPRESSION: NO SONOGRAPHIC EVIDENCE OF DEEP VENOUS THROMBOSIS WITHIN THE BILATERAL LOWER EXTREMITIES. [place] CBC Auto Differentialon Bands Relative 3 % Low 5 - 11 % [place] Basophils (Bld) [#/Vol] 0.0 10*3/uL 0 - 0.2 K/uL [place], [place] Basophils/100 WBC (Bld) 0.2 % [place] Eosinophils (Bld) [#/Vol] 0.0 10*3/uL 0 - 0.7 K/uL [place] Eosinophils/100 WBC (Bld) 0.1 % [place] Erythrocyte distribution width (RBC) [Ratio] 14.7 % High 11.5 - 14.5 % [place] Hematocrit (Bld) [Volume fraction] 42.0 % 37 - 47 % [place] Hemoglobin (Bld) [Mass/Vol] 14.3 g/dL 12 - 16 g/dL [place] Interpretation and review of laboratory results Abnormal [place] Lymphocytes (Bld) [#/Vol] 0.7 10*3/uL Low 1 - 4.8 K/uL [place], [place] Lymphocytes/100 WBC (Bld) 20.0 % [place] MCH (RBC) [Entitic mass] 28.2 pg 27 - 31.3 pg [place] MCHC (RBC) [Mass/Vol] 34.0 % 33 - 37 % [place] MCV (RBC) [Entitic vol] 82.9 fL 82 - 100 fL [place], [place] Monocytes (Bld) [#/Vol] 0.3 10*3/uL 0.2 - 0.8 K/uL [place], [place] Monocytes/100 WBC (Bld) 6.6 % [place] Neutrophils Absolute 2.7 K/uL 1.4 - 6 .5 K/uL [place] Neutrophils/100 WBC (Bld) 71.0 % [place] Platelets (Bld) [#/Vol] 231 10*3/uL 130 - 400 K/uL [place] RBC (Bld) [#/Vol] 5.07 10*6/uL [place] RBC morphology finding Nom (Bld) Normal [place] WBC (Bld) [#/Vol] 3.6 10*3/uL Low 4.8 - 10.8 K/uL [place] CTA Chest W WO (PE study)on 05-05-2020 There are patchy aimee eolar opacities scattered throughout all segments of both lungs indicating pneumonia which may represent viral, COVID-19 pneumonia versus other etiologies. . No evidence of thoracic aortic dissection or aneurysm. The study is negative for pulmonary emboli. [place] EXAM:CTA CHEST W WO CONTRAST DATE05/05/2020 [...] Osseous structures and chest wall are normal. [facility] [place], [place] Hemant, Chpo Incoming Radiant Results From [employer] - 05/05/2020 12:14 PM EST EXAM:CTA CHEST [...] The study is negative for pulmonary emboli. [place] Comprehensive Metabolic Pane loco 05-05-2020 Albumin [Mass/Vol] 4.1 g/dL 3.5 - 4.6 g/dL [place] ALP [Catalytic activity/Vol] 86 U/L 40 - 130 U/L [place] ALT [Catalytic activity/Vol] 18 U/L 0 - 33 U/L [place] Anion gap [Moles/Vol] 19 mmol/L High [place] AST [Catalytic activity/Vol] 34 U/L 0 - 35 U/L [place] Comment on above: Specimen hemolysis h as exceeded the interference as defined by Mariah. Value may be falsely increased. Suggest recollection if clinically indicated. Bilirubin Ql (U) 0.4 mg/dL 0.2 - 0.7 mg/dL [place] Calcium [Mass/Vol] 8.8 mg/dL 8.5 - 9.9 mg/dL [place], [place] Chloride [Moles/Vol] 95 mmol/L [place], [place] CO2 [Moles/Vol] 22 mmol/L [place] Creatinine [Mass/Vol] 0.63 mg/dL 0.5 - 0.9 mg/dL [place], [place] GFR >60.0 >60 [place], [place] Comment on above: >60 mL/min/1.73m2 EG FR, calc. for ages 18 and older using the MDRD formula (not corrected for weight), is valid for stable renal function. GFR Non- >60.0 >60 [place] Comment on above: >60 mL/min/1.73m2 EG FR, calc. for ages 18 and older using the MDRD formula (not corrected for weight), is valid for stable renal function. Globulin (S) [Mass/Vol] 4.1 g/dL High 2.3 - 3.5 g/dL [place], [place] Glucose [Mass/Vol] 250 mg/dL High 70 - 99 mg/dL [place] Interpretation and review of laboratory results Abnormal [place] Potassium [Moles/Vol] 4.3 mmol/L [place] Protein [Mass/Vol] 8.2 g/dL High 6.3 - 8 g/dL [place] Sodium [Moles/Vol] 136 mmol/L [place] Urea nitrogen [Mass/Vol] 10 mg/dL 6 - 20 mg/dL [place] D-Dimer, Quantitativeon D-Dimer, Quant 1.22 Critically high [place], [place] Comment on above: VTE (DVT or PE) cut- off = 0.50 mg/L FEU Interpretation and review of laboratory results Abnormal [place] CALL [facility] tel. [phone], Dimer results called to and read back by Grace Pride, 05/05/2020 11:15, by NICK [place] Ferritinon 05-05-2020 Ferritin [Mass/Vol] 144.5 ng/mL 13 - 150 ng/mL [place], [place] High sensitivity CRPon 05-05 CRP High Sensitivity 59.3 mg/L High 0 - 5 mg/L [place], [place] Interpretation and review of laboratory results Abnormal [place], [place] POCT Arterialon 05-05-2020 Base Excess, Arterial -1 [place] Calcium [Mass/Vol] 1.12 mmol/L 1.12 - 1.32 mmol/L [place], [place] Chloride [Moles/Vol] 102 mmol/L [place], [place] Creatinine [Mass/Vol] 0.7 mg/dL 0.6 - 1.1 mg/dL [place] GFR >60 >60 [place] Comment on above: >60 mL/min/1.73m2 EG FR, calc. for ages 18 and older using the MDRD formula (not corrected for weight), is valid for stable renal function. GFR Non- >60 >60 [place] Comment on above: >60 mL/min/1.73m2 EG FR, calc. for ages 18 and older using the MDRD formula (not corrected for weight), is valid for stable renal function. Glucose [Mass/Vol] 280 mg/dL High 60 - 115 mg/dl [place] HCO3, Arterial 22.3 mmol/L 21 - 29 mmol/L [place] Hematocrit (Bld) [Volume fraction] 41 % 36 - 48 % [place] Hemoglobin (Bld) [Mass/Vol] 13.9 g/dL [place] Interpretation and review of laboratory results Abnormal [place] Lactate [Moles/Vol] 0.9 mmol/L 0.4 - 2 mmol/L [place], [place] Oxygen saturation in Blood 97 % Critically high 93 - 100 % [place] pCO2, Arterial 30 Low [place], [place] Performed on SEE BELOW [place], [place] Comment on above: Performed on POC Sample Type: Arterial pH, Arterial 7.475 High [place], [place] pO2, Arterial 84 Critically high [place], [place] Potassium [Moles/Vol] 3.8 mmol/L [place] Sample Type ART [place], [place] Sodium [Moles/Vol] 135 mmol/L Low [place] TCO2, Arterial 23 [place], [place] POCT Venouson 05-05-2020 Creatinine [Mass/Vol] 0.5 mg/dL Low 0.6 - 1.1 mg/dL [place], [place] GFR >60 >60 [place], [place] Comment on above: >60 mL/min/1.73m2 EG FR, calc. for ages 18 and older using the MDRD formula (not corrected for weight), is valid for stable renal function. GFR Non- >60 >60 [place], [place] Comment on above: >60 mL/min/1.73m2 EG FR, calc. for ages 18 and older using the MDRD formula (not corrected for weight), is valid for stable renal function. Interpretation and review of laboratory results Abnormal [place] Performed on SEE BELOW [place] Comment on above: Performed on POC Sample Type JUSTICE [place] PROCALCITONINon 05-05-2020 Procalcitonin 0.1 ng/mL 0 - 0.15 ng/mL [place], [place] Comment on above: Suspected Sepsis: Low [...] to determine the patient's Mortality Risk Prognosis ([email or web address]) In healthy neonates, plasma Procalcitonin (PCT) concentrations increase gradually after , reaching peak values at about 24 hours of age then decrease to normal values below 0.5 ng/mL by 48-72 hours of age. Sedimentation Rateon 020 Interpretation and review of laboratory results Abnormal [place], [place] Sed Rate 82 mm High 0 - 20 mm [place] Troponinon 05-05-2020 Troponin I.cardiac [Mass/Vol] ng/mL 0 - 0.01 ng/mL [place] Comment on above: Methodology by Shahnaz Chan XR CHEST PORTABLEon 05-05-20 Exam: XR CHEST GAL BLE History: cp Technique: AP portable view of the chest obtained. Comparison: None Findings: The cardiomediastinal silhouette is within normal limits. There are ill-defined patchy alveolar opacities in both lungs, left greater than right. Bones of the thorax appear intact. [place] Hemant, Chpo Incoming Radiant Results From [employer] - 05/05/2020 10:20 AM EST Exam: XR [...] differential includes COVID-19 pneumonia versus other etiologies [place] There are alveolar opacities which may represent early infiltrates, pneumonia. The differential includes COVID-19 pneumonia versus other etiologies [place], [place] CBC Auto Differentialon 11-0 3-2020 Basophils (Bld) [#/Vol] 0.0 10*3/uL 0 - 0.2 K/uL [place], [place] Basophils/100 WBC (Bld) 0.4 % [place] Eosinophils (Bld) [#/Vol] 0.0 10*3/uL 0 - 0.7 K/uL [place], [place] Eosinophils/100 WBC (Bld) 0.1 % [place] Erythrocyte distribution width (RBC) [Ratio] 14.6 % High 11.5 - 14.5 % [place] Hematocrit (Bld) [Volume fraction] 37.8 % 37 - 47 % [place] Hemoglobin (Bld) [Mass/Vol] 12.4 g/dL 12 - 16 g/dL [place] Interpretation and review of laboratory results Abnormal [place] Lymphocytes (Bld) [#/Vol] 0.9 10*3/uL Low 1 - 4.8 K/uL [place], [place] Lymphocytes/100 WBC (Bld) 21.8 % [place] MCH (RBC) [Entitic mass] 27.5 pg 27 - 31.3 pg [place] MCHC (RBC) [Mass/Vol] 32.7 % Low 33 - 37 % [place] MCV (RBC) [Entitic vol] 84.1 fL 82 - 100 fL [place], [place] Monocytes (Bld) [#/Vol] 0.4 10*3/uL 0.2 - 0.8 K/uL [place], [place] Monocytes/100 WBC (Bld) 10.7 % [place] Neutrophils Absolute 2.7 K/uL 1.4 - 6 .5 K/uL [place], [place] Neutrophils/100 WBC (Bld) 67.0 % [place] Platelets (Bld) [#/Vol] 193 10*3/uL 130 - 400 K/uL [place] RBC (Bld) [#/Vol] 4.49 10*6/uL [place] WBC (Bld) [#/Vol] 4.0 10*3/uL Low 4.8 - 10.8 K/uL [place] Comprehensive Metabolic Pane loco 05-01-2020 Albumin [Mass/Vol] 3.8 g/dL 3.5 - 4.6 g/dL [place] ALP [Catalytic activity/Vol] 94 U/L 40 - 130 U/L [place] ALT [Catalytic activity/Vol] 32 U/L 0 - 33 U/L [place] Comment on above: Specimen hemolysis h as exceeded the interference as defined by Mariah. Result may be affected. Suggest recollection if clinically indicated. Anion gap [Moles/Vol] 13 mmol/L [place] AST [Catalytic activity/Vol] 53 U/L High 0 - 35 U/L [place] Comment on above: Specimen hemolysis h as exceeded the interference as defined by Mariah. Value may be falsely increased. Suggest recollection if clinically indicated. Bilirubin Ql (U) 0.4 mg/dL 0.2 - 0.7 mg/dL [place] Calcium [Mass/Vol] 8.7 mg/dL 8.5 - 9.9 mg/dL [place] Chloride [Moles/Vol] 97 mmol/L [place], [place] CO2 [Moles/Vol] 22 mmol/L [place] Creatinine [Mass/Vol] 0.87 mg/dL 0.5 - 0.9 mg/dL [place] GFR >60.0 >60 [place], [place] Comment on above: >60 mL/min/1.73m2 EG FR, calc. for ages 18 and older using the MDRD formula (not corrected for weight), is valid for stable renal function. GFR Non- >60.0 >60 [place] Comment on above: >60 mL/min/1.73m2 EG FR, calc. for ages 18 and older using the MDRD formula (not corrected for weight), is valid for stable renal function. Globulin (S) [Mass/Vol] 3.1 g/dL 2.3 - 3.5 g/dL [place], [place] Glucose [Mass/Vol] 428 mg/dL Critically high 70 - 9 9 mg/dL [place] Interpretation and review of laboratory results Abnormal [place] Potassium [Moles/Vol] 4.9 mmol/L [place] Comment on above: Specimen hemolysis h as exceeded the interference as defined by Mariah. Value may be falsely increased. Suggest recollection if clinically indicated. Specimen slightly hemolyzed Protein [Mass/Vol] 6.9 g/dL 6.3 - 8 g/dL [place] Sodium [Moles/Vol] 132 mmol/L Low [place], [place] Urea nitrogen [Mass/Vol] 14 mg/dL 6 - 20 mg/dL [place] Lactic Acid, Plasmaon 2019 Interpretation and review of laboratory results Abnormal [place] Lactate [Moles/Vol] 2.8 mmol/L High 0.5 - 2. 2 mmol/L [place], [place] Magnesiumon 05-01-2020 Magnesium [Mass/Vol] 2.0 mg/dL 1.7 - 2 .4 mg/dL [place] Metabolic Panelon 05-01-2020 Glucose [Mass/Vol] CALL [facility] tel. [phone], Glucose results called to and read back by Grace Pride, 05/01/2020 15:20, by AVINASH [place], [place] POCT Glucoseon 05-01-2020 Glucose [Mass/Vol] 366 mg/dL High 60 - 115 mg/dl [place] Interpretation and review of laboratory results Abnormal [place] Performed on ACCU-CHEK [place] Glucose [Mass/Vol] 366 mg/dL [place] Interpretation and review of laboratory results Normal [place] QC OK? yes [place] XR CHEST PORTABLEon 05-01-20 20 INR Coag (Bld) [Relative time] DEVELOPING AREA OF ATELECTASIS, GROUNDGLASS INFILTRATE LEFT LOWER LOBE [place] Hemant, Chpo Incoming Radiant Results From [employer] - 05/01/2020 2:59 PM EST EXAMINATION: CHEST PORTABLE VIEW CLINICAL HISTORY: Weakness, short of breath COMPARISONS: April 30, 2020 0740 hours FINDINGS: Single views of the chest is submitted. The cardiac silhouette is unchanged. . Pulmonary vascular unremarkable. Right sided trachea. Developing area of atelectasis, groundglass infiltrate left lower lobe. No Pneumothoraces. IMPRESSION: DEVELOPING AREA OF ATELECTASIS, GROUNDGLASS INFILTRATE LEFT LOWER LOBE [place] EXAMINATION: CHEST PORTABLE VIEW CLINICAL HISTORY: Weakness, short of breath COMPARISONS: April 30, 2020 0740 hours FINDINGS: Single views of the chest is submitted. The cardiac silhouette is unchanged. . Pulmonary vascular unremarkable. Right sided trachea. Developing area of atelectasis, groundglass infiltrate left lower lobe. No Pneumothoraces. [place] CBC Auto Differentialon Basophils (Bld) [#/Vol] 0.0 10*3/uL 0 - 0.2 K/uL [place], [place] Basophils/100 WBC (Bld) 0.7 % [place] Eosinophils (Bld) [#/Vol] 0.0 10*3/uL 0 - 0.7 K/uL [place], [place] Eosinophils/100 WBC (Bld) 0.5 % [place] Erythrocyte distribution width (RBC) [Ratio] 14.4 % 11.5 - 14.5 % [place] Hematocrit (Bld) [Volume fraction] 40.1 % 37 - 47 % [place] Hemoglobin (Bld) [Mass/Vol] 13.4 g/dL 12 - 16 g/dL [place] Lymphocytes (Bld) [#/Vol] 1.1 10*3/uL 1 - 4.8 K/uL [place], [place] Lymphocytes/100 WBC (Bld) 23.2 % [place] MCH (RBC) [Entitic mass] 27.7 pg 27 - 31.3 pg [place] MCHC (RBC) [Mass/Vol] 33.3 % 33 - 37 % [place] MCV (RBC) [Entitic vol] 83.3 fL 82 - 100 fL [place], [place] Monocytes (Bld) [#/Vol] 0.6 10*3/uL 0.2 - 0.8 K/uL [place], [place] Monocytes/100 WBC (Bld) 12.1 % [place] Neutrophils Absolute 3.1 K/uL 1.4 - 6 .5 K/uL [place], [place] Neutrophils/100 WBC (Bld) 63.5 % [place] Platelets (Bld) [#/Vol] 227 10*3/uL 130 - 400 K/uL [place] RBC (Bld) [#/Vol] 4.82 10*6/uL [place] WBC (Bld) [#/Vol] 4.9 10*3/uL 4.8 - 10.8 K/uL [place] COVID-19on 04-30-2020 Interpretation and review of laboratory results Abnormal [place] SARS-CoV-2, NAAT DETECTED Abnormal Not Detected [place], [place] Comment on above: Rapid NAAT: Negative [...] authorized laboratories. Fact sheet for Healthcare Providers: https://www.fda.gov/media/934144/download Fact sheet for Patients: https://www.fda.gov/media/053088/download METHODOLOGY: Isothermal Nucleic Acid Amplification CALL [facility] tel. [phone], COVID results called to and read back by Lore Palomino, 04/30/2020 07:41, by AVINASH [place] Comprehensive Metabolic Pane loco 04-30-2020 Albumin [Mass/Vol] 4.2 g/dL 3.5 - 4.6 g/dL [place] ALP [Catalytic activity/Vol] 86 U/L 40 - 130 U/L [place] ALT [Catalytic activity/Vol] 22 U/L 0 - 33 U/L [place] Anion gap [Moles/Vol] 13 mmol/L [place] AST [Catalytic activity/Vol] 24 U/L 0 - 35 U/L [place] Bilirubin Ql (U) 0.3 mg/dL 0.2 - 0.7 mg/dL [place] Calcium [Mass/Vol] 9.1 mg/dL 8.5 - 9.9 mg/dL [place] Chloride [Moles/Vol] 100 mmol/L [place], [place] CO2 [Moles/Vol] 22 mmol/L [place] Creatinine [Mass/Vol] 0.6 mg/dL 0.5 - 0.9 mg/dL [place] GFR >60.0 >60 [place], [place] Comment on above: >60 mL/min/1.73m2 EG FR, calc. for ages 18 and older using the MDRD formula (not corrected for weight), is valid for stable renal function. GFR Non- >60.0 >60 [place], [place] Comment on above: >60 mL/min/1.73m2 EG FR, calc. for ages 18 and older using the MDRD formula (not corrected for weight), is valid for stable renal function. Globulin (S) [Mass/Vol] 3.3 g/dL 2.3 - 3.5 g/dL [place], [place] Glucose [Mass/Vol] 223 mg/dL High 70 - 99 mg/dL [place], [place] Interpretation and review of laboratory results Abnormal [place] Potassium [Moles/Vol] 4.2 mmol/L [place] Protein [Mass/Vol] 7.5 g/dL 6.3 - 8 g/dL [place], [place] Sodium [Moles/Vol] 135 mmol/L [place], [place] Urea nitrogen [Mass/Vol] 9 mg/dL 6 - 20 mg/dL [place] Microscopic Urinalysison Bacteria, UA MANY Abnormal Negative /HPF [place] Epithelial Cells, UA 20-50 [place], [place] Hyaline Casts, UA 5-10 [place], [place] RBC (U) [#/Vol] /uL High [place], [place] WBC, UA 50-100 Abnormal [place], [place] Otheron 04-30-2020 Interpretation and review of laboratory results Abnormal [place] Rapid Influenza A/B Antigens on 04-30-2020 Influenza A by PCR Negative [place], [place] Influenza B by PCR Negative [place], [place] Rapid Strep Screenon 020 Strep Grp A PCR Negative [place], [place] Comment on above: Negative for Strep A nucleic acid. Urine Reflex to Cultureon Bilirubin Urine Negative Negative [place] Blood, Urine LARGE Abnormal Negative [place], [place] Clarity, UA CLOUDY Abnormal Clear [place], [place] Color, UA ORANGE Abnormal Straw/Mower ow [place], [place] Glucose, Ur 250 mg/dL Abnormal Negative [place], [place] Ketones Ql (U) TRACE Abnormal Negative mg/dL [place], [place] Leukocyte esterase Test strip Ql (U) LARGE Abnormal Negative [place], [place] Nitrite, Urine Negative Negative [place], [place] pH, UA 6.5 [place], [place] Protein (U) [Mass/Vol] 30 mg/dL Abnormal Negative [place], [place] Specific Dent, UA 1.018 [place], [place] Urine Reflex to Culture Yes [place], [place] Urobilinogen, Urine 0.2 <2.0 E.U./dL [place] XR CHEST PORTABLEon 04-30-20 20 No radiographic evid ence of acute intrathoracic process. [place] Exam: XR CHEST GAL BLE History: cough Technique: AP portable view of the chest obtained. Comparison: None Findings: The cardiomediastinal silhouette is within normal limits. There are no infiltrates, consolidations or effusions. Bones of the thorax appear intact. [place] Hemant, Chpo Incoming Radiant Results From [employer] - 04/30/2020 8:49 AM EST Exam: XR CHEST PORTABLE History: cough Technique: AP portable view of the chest obtained. Comparison: None Findings: The cardiomediastinal silhouette is within normal limits. There are no infiltrates, consolidations or effusions. Bones of the thorax appear intact. IMPRESSION: No radiographic evidence of acute intrathoracic process. [place] Comprehensive Metabolic Pane loco 04-29-2020 Albumin [Mass/Vol] 3.8 g/dL 3.5 - 4.6 g/dL [place] ALP [Catalytic activity/Vol] 82 U/L 40 - 130 U/L [place] ALT [Catalytic activity/Vol] 22 U/L 0 - 33 U/L [place], [place] Comment on above: Specimen hemolysis h as exceeded the interference as defined by Mariah. Result may be affected. Suggest recollection if clinically indicated. Anion gap [Moles/Vol] 10 mmol/L [place] AST [Catalytic activity/Vol] 38 U/L High 0 - 35 U/L [place], [place] Comment on above: Specimen hemolysis h as exceeded the interference as defined by Mariah. Value may be falsely increased. Suggest recollection if clinically indicated. Bilirubin Ql (U) 0.3 mg/dL 0.2 - 0.7 mg/dL [place] Calcium [Mass/Vol] 8.6 mg/dL 8.5 - 9.9 mg/dL [place], [place] Chloride [Moles/Vol] 100 mmol/L [place] CO2 [Moles/Vol] 25 [facility] [place] [place] Creatinine [Mass/Vol] 0.5 mg/dL 0.5 - 0.9 mg/dL [place] GFR >60.0 >60 [place], [place] Comment on above: >60 mL/min/1.73m2 EG FR, calc. for ages 18 and older using the MDRD formula (not corrected for weight), is valid for stable renal function. GFR Non- >60.0 >60 [place], [place] Comment on above: >60 mL/min/1.73m2 EG FR, calc. for ages 18 and older using the MDRD formula (not corrected for weight), is valid for stable renal function. Globulin (S) [Mass/Vol] 3.4 g/dL 2.3 - 3.5 g/dL [place], [place] Glucose [Mass/Vol] 243 mg/dL High 70 - 99 mg/dL [place], [place] Interpretation and review of laboratory results Abnormal [place], [place] Potassium [Moles/Vol] 4.8 mmol/L [place], [place] Comment on above: Specimen hemolysis h as exceeded the interference as defined by Mariah. Value may be falsely increased. Suggest recollection if clinically indicated. Protein [Mass/Vol] 7.2 g/dL 6.3 - 8 g/dL [place], [place] Sodium [Moles/Vol] 135 mmol/L [place], [place] Urea nitrogen [Mass/Vol] 9 mg/dL 6 - 20 mg/dL [place], [place] Magnesiumon 04-29-2020 Magnesium [Mass/Vol] 1.9 mg/dL 1.7 - 2 .4 mg/dL [place] Microscopic Urinalysison Bacteria, UA RARE Abnormal Negative /HPF [place] Epithelial Cells, UA 10-20 [place], [place] Hyaline Casts, UA 0-1 [facility] [place] Interpretation and review of laboratory results Abnormal [place], [place] RBC (U) [#/Vol] /uL High [place], [place] WBC, UA 3-5 [place], [place] POCT urine pregnancyon 04-29 Interpretation and review of laboratory results Normal [place], [place] Preg Test, Ur Negative [place] QC OK? yes [place] SPECIMEN REJECTIONon 020 Reason for Rejection see below [place], [place] Comment on above: Unable to perform te sting; specimen quantity not sufficient. To perform testing the specimen will need to be recollected. QNS Rejected Test CBCWD [place] Urinalysison 04-29-2020 Bilirubin Urine Negative Negative [facility] [place], [place] Blood, Urine LARGE Abnormal Negative [place], [place] Clarity, UA Clear Clear [place], [place] Color, UA Yellow Straw/Mower ow [place], [place] Glucose, Ur 500 mg/dL Abnormal Negative [place], [place] Interpretation and review of laboratory results Abnormal [place] Ketones Ql (U) Negative Negative mg/dL [place], [place] Leukocyte esterase Test strip Ql (U) TRACE Abnormal Negative [place], [place] Nitrite, Urine Negative Negative [place], [place] pH, UA 6.0 [place], [place] Protein (U) [Mass/Vol] Negative Negat isabella mg/dL [place], [place] Specific Dent, UA 1.015 [place], [place] Urobilinogen, Urine 0.2 <2.0 E.U./dL [place], [place] POCT Glucoseon 03-05-2020 Glucose [Mass/Vol] 345 mg/dL High 60 - 115 mg/dl [place], [place] Interpretation and review of laboratory results Abnormal [place] Glucose [Mass/Vol] 397 mg/dL High 60 - 115 mg/dl [place], [place] Interpretation and review of laboratory results Abnormal [place], [place] Performed on ACCU-CHEK [place], [place] Comment on above: Notified RN or CBC Auto Differentialon Basophils (Bld) [#/Vol] 0.1 10*3/uL 0 - 0.2 K/uL [place], [place] Basophils/100 WBC (Bld) 0.7 % [place] Eosinophils (Bld) [#/Vol] 0.2 10*3/uL 0 - 0.7 K/uL [place], [place] Eosinophils/100 WBC (Bld) 1.9 % [place] Erythrocyte distribution width (RBC) [Ratio] 15.9 % High 11.5 - 14.5 % [place], [place] Hematocrit (Bld) [Volume fraction] 41.3 % 37 - 47 % [place], [place] Hemoglobin (Bld) [Mass/Vol] 14.0 g/dL 12 - 16 g/dL [place], [place] Interpretation and review of laboratory results Abnormal [place] Lymphocytes (Bld) [#/Vol] 2.3 10*3/uL 1 - 4.8 K/uL [place], [place] Lymphocytes/100 WBC (Bld) 26.8 % [place] MCH (RBC) [Entitic mass] 28.3 pg 27 - 31.3 pg [place], [place] MCHC (RBC) [Mass/Vol] 34.0 % 33 - 37 % [place] MCV (RBC) [Entitic vol] 83.3 fL 82 - 100 fL [place], [place] Monocytes (Bld) [#/Vol] 0.6 10*3/uL 0.2 - 0.8 K/uL [place], [place] Monocytes/100 WBC (Bld) 7.1 % [place], [place] Neutrophils Absolute 5.5 K/uL 1.4 - 6 .5 K/uL [place], [place] Neutrophils/100 WBC (Bld) 63.5 % [place] Platelets (Bld) [#/Vol] 237 10*3/uL 130 - 400 K/uL [place], [place] RBC (Bld) [#/Vol] 4.96 10*6/uL [place] WBC (Bld) [#/Vol] 8.6 10*3/uL 4.8 - 10.8 K/uL [place], [place] Comprehensive Metabolic Pane loco 03-04-2020 Albumin [Mass/Vol] 4.3 g/dL 3.5 - 4.6 g/dL [place], [place] ALP [Catalytic activity/Vol] 87 U/L 40 - 130 U/L [place], [place] ALT [Catalytic activity/Vol] 16 U/L 0 - 33 U/L [place], [place] Anion gap [Moles/Vol] 11 mmol/L [place] AST [Catalytic activity/Vol] 18 U/L 0 - 35 U/L [place], [place] Bilirubin Ql (U) 0.4 mg/dL 0.2 - 0.7 mg/dL [place], [place] Calcium [Mass/Vol] 9.5 mg/dL 8.5 - 9.9 mg/dL [place], [place] Chloride [Moles/Vol] 99 mmol/L [place], [place] CO2 [Moles/Vol] 25 mmol/L [facility] [place] Creatinine [Mass/Vol] 0.6 mg/dL 0.5 - 0.9 mg/dL [place], [place] GFR >60.0 >60 [place], [place] Comment on above: >60 mL/min/1.73m2 EG FR, calc. for ages 18 and older using the MDRD formula (not corrected for weight), is valid for stable renal function. GFR Non- >60.0 >60 [place], [place] Comment on above: >60 mL/min/1.73m2 EG FR, calc. for ages 18 and older using the MDRD formula (not corrected for weight), is valid for stable renal function. Globulin (S) [Mass/Vol] 2.8 g/dL 2.3 - 3.5 g/dL [place], [place] Glucose [Mass/Vol] 545 mg/dL Critically high 70 - 9 9 mg/dL [place], [place] Interpretation and review of laboratory results Abnormal [place], [place] Potassium [Moles/Vol] 4.2 mmol/L [place] Protein [Mass/Vol] 7.1 g/dL 6.3 - 8 g/dL [place], [place] Sodium [Moles/Vol] 135 mmol/L [place], [place] Urea nitrogen [Mass/Vol] 15 mg/dL 6 - 20 mg/dL [place], [place] Lactic Acid, Plasmaon 2019 Lactate [Moles/Vol] 2.2 mmol/L 0.5 - 2. 2 mmol/L [place], [place] Lipaseon 03-04-2020 Lipase [Catalytic activity/Vol] 68 U/L 12 - 95 U/L [place], [place] Metabolic Panelon 03-04-2020 Glucose [Mass/Vol] CALL [employer] tel. [phone], Glucose results called to and read back by carlos plaza, 03/04/2020 22:58, by JOEL [place], [place] Microscopic Urinalysison Bacteria, UA Negative Negative /HPF [place], [place] Epithelial Cells, UA 0-2 [place], [place] Hyaline Casts, UA 0-1 [facility] [place] RBC (U) [#/Vol] /uL [place], [place] WBC, UA 3-5 [place], [place] Otheron 03-04-2020 Interpretation and review of laboratory results Abnormal [place], [place] Urine Reflex to Cultureon Bilirubin Urine Negative Negative [place] Blood, Urine LARGE Abnormal Negative [place], [place] Clarity, UA Clear Clear [place], [place] Color, UA Yellow Straw/Mower ow [place], [place] Glucose, Ur >=1000 Abnormal Negative mg/dL [place], [place] Ketones Ql (U) Negative Negative mg/dL [place], [place] Leukocyte esterase Test strip Ql (U) Negative Negative [place], [place] Nitrite, Urine Negative Negative [place], [place] pH, UA 6.0 [place], [place] Protein (U) [Mass/Vol] Negative Negat isabella mg/dL [place], [place] Specific Dent, UA 1.040 [place], [place] Urine Reflex to Culture Not Indicated [place], [place] Urobilinogen, Urine 0.2 <2.0 E.U./dL [place], [place] CBC Auto Differentialon 01-28 Basophils (Bld) [#/Vol] 0.1 10*3/uL 0 - 0.2 K/uL [place], [place] Basophils/100 WBC (Bld) 1.2 % [place] Eosinophils (Bld) [#/Vol] 0.1 10*3/uL 0 - 0.7 K/uL [place], [place] Eosinophils/100 WBC (Bld) 1.3 % [place] Erythrocyte distribution width (RBC) [Ratio] 15.4 % High 11.5 - 14.5 % [place], [place] Hematocrit (Bld) [Volume fraction] 40.7 % 37 - 47 % [place], [place] Hemoglobin (Bld) [Mass/Vol] 13.7 g/dL 12 - 16 g/dL [place], [place] Interpretation and review of laboratory results Abnormal [place] Lymphocytes (Bld) [#/Vol] 2.3 10*3/uL 1 - 4.8 K/uL [place], [place] Lymphocytes/100 WBC (Bld) 34.6 % [place] MCH (RBC) [Entitic mass] 27.5 pg 27 - 31.3 pg [place] MCHC (RBC) [Mass/Vol] 33.6 % 33 - 37 % [place] MCV (RBC) [Entitic vol] 82.0 fL 82 - 100 fL [place], [place] Monocytes (Bld) [#/Vol] 0.5 10*3/uL 0.2 - 0.8 K/uL [place], [place] Monocytes/100 WBC (Bld) 8.1 % [place] Neutrophils Absolute 3.7 K/uL 1.4 - 6 .5 K/uL [place], [place] Neutrophils/100 WBC (Bld) 54.8 % [place] Platelets (Bld) [#/Vol] 235 10*3/uL 130 - 400 K/uL [place], [place] RBC (Bld) [#/Vol] 4.96 10*6/uL [place] WBC (Bld) [#/Vol] 6.8 10*3/uL 4.8 - 10.8 K/uL [place], [place] Comprehensive Metabolic Pane loco 02-19-2020 Albumin [Mass/Vol] 4.4 g/dL 3.5 - 4.6 g/dL [place] ALP [Catalytic activity/Vol] 80 U/L 40 - 130 U/L [place] ALT [Catalytic activity/Vol] 17 U/L 0 - 33 U/L [place], [place] Anion gap [Moles/Vol] 12 mmol/L [place] AST [Catalytic activity/Vol] 21 U/L 0 - 35 U/L [place], [place] Bilirubin Ql (U) 0.4 mg/dL 0.2 - 0.7 mg/dL [place], [place] Calcium [Mass/Vol] 9.4 mg/dL 8.5 - 9.9 mg/dL [place], [place] Chloride [Moles/Vol] 104 mmol/L [place], [place] CO2 [Moles/Vol] 25 mmol/L [facility] [place] Creatinine [Mass/Vol] 0.57 mg/dL 0.5 - 0.9 mg/dL [place], [place] GFR >60.0 >60 [place], [place] Comment on above: >60 mL/min/1.73m2 EG FR, calc. for ages 18 and older using the MDRD formula (not corrected for weight), is valid for stable renal function. GFR Non- >60.0 >60 [place], [place] Comment on above: >60 mL/min/1.73m2 EG FR, calc. for ages 18 and older using the MDRD formula (not corrected for weight), is valid for stable renal function. Globulin (S) [Mass/Vol] 2.8 g/dL 2.3 - 3.5 g/dL [place], [place] Glucose [Mass/Vol] 314 mg/dL High 70 - 99 mg/dL [place], [place] Interpretation and review of laboratory results Abnormal [place] Potassium [Moles/Vol] 3.9 mmol/L [place] Protein [Mass/Vol] 7.2 g/dL 6.3 - 8 g/dL [place], [place] Sodium [Moles/Vol] 141 mmol/L [place], [place] Urea nitrogen [Mass/Vol] 14 mg/dL 6 - 20 mg/dL [place], [place] CBC Auto Differentialon 08-2 Basophils (Bld) [#/Vol] 0.1 10*3/uL 0 - 0.2 K/uL [place] Basophils/100 WBC (Bld) 0.8 % [place] Eosinophils (Bld) [#/Vol] 0.2 10*3/uL 0 - 0.7 K/uL [place], [place] Eosinophils/100 WBC (Bld) 2.4 % [place] Erythrocyte distribution width (RBC) [Ratio] 15.3 % High 11.5 - 14.5 % [place] Hematocrit (Bld) [Volume fraction] 37.2 % 37 - 47 % [place] Hemoglobin (Bld) [Mass/Vol] 12.6 g/dL 12 - 16 g/dL [place], [place] Interpretation and review of laboratory results Abnormal [place] Lymphocytes (Bld) [#/Vol] 2.4 10*3/uL 1 - 4.8 K/uL [place], [place] Lymphocytes/100 WBC (Bld) 34.6 % [place] MCH (RBC) [Entitic mass] 27.6 pg 27 - 31.3 pg [place], [place] MCHC (RBC) [Mass/Vol] 33.8 % 33 - 37 % [place] MCV (RBC) [Entitic vol] 81.8 fL Low 82 - 100 fL [place], [place] Monocytes (Bld) [#/Vol] 0.6 10*3/uL 0.2 - 0.8 K/uL [place], [place] Monocytes/100 WBC (Bld) 9.2 % [place] Neutrophils Absolute 3.7 K/uL 1.4 - 6 .5 K/uL [place], [place] Neutrophils/100 WBC (Bld) 53.0 % [place] Platelets (Bld) [#/Vol] 247 10*3/uL 130 - 400 K/uL [place] RBC (Bld) [#/Vol] 4.55 10*6/uL [place] WBC (Bld) [#/Vol] 7.0 10*3/uL 4.8 - 10.8 K/uL [place], [place] Comprehensive Metabolic Pane loco 02-17-2020 Albumin [Mass/Vol] 4.1 g/dL 3.5 - 4.6 g/dL [place] ALP [Catalytic activity/Vol] 77 U/L 40 - 130 U/L [place] ALT [Catalytic activity/Vol] 21 U/L 0 - 33 U/L [place], [place] Anion gap [Moles/Vol] 8 mmol/L Low [place] AST [Catalytic activity/Vol] 18 U/L 0 - 35 U/L [place] Bilirubin Ql (U) 0.3 mg/dL 0.2 - 0.7 mg/dL [place] Calcium [Mass/Vol] 8.8 mg/dL 8.5 - 9.9 mg/dL [place], [place] Chloride [Moles/Vol] 103 mmol/L [place] CO2 [Moles/Vol] 25 [facility] [place] [place] Creatinine [Mass/Vol] 0.48 mg/dL Low 0.5 - 0.9 mg/dL [place], [place] GFR >60.0 >60 [place], [place] Comment on above: >60 mL/min/1.73m2 EG FR, calc. for ages 18 and older using the MDRD formula (not corrected for weight), is valid for stable renal function. GFR Non- >60.0 >60 [place], [place] Comment on above: >60 mL/min/1.73m2 EG FR, calc. for ages 18 and older using the MDRD formula (not corrected for weight), is valid for stable renal function. Globulin (S) [Mass/Vol] 2.9 g/dL 2.3 - 3.5 g/dL [place], [place] Glucose [Mass/Vol] 265 mg/dL High 70 - 99 mg/dL [place], [place] Interpretation and review of laboratory results Abnormal [place], [place] Potassium [Moles/Vol] 3.6 mmol/L [place] Protein [Mass/Vol] 7.0 g/dL 6.3 - 8 g/dL [place], [place] Sodium [Moles/Vol] 136 mmol/L [place], [place] Urea nitrogen [Mass/Vol] 12 mg/dL 6 - 20 mg/dL [place] Microscopic Urinalysison Bacteria, UA RARE Abnormal Negative /HPF [place], [place] Epithelial Cells, UA 10-20 [place], [place] Hyaline Casts, UA 0-1 [facility] [place] RBC (U) [#/Vol] /uL [place] WBC, UA 10-20 Abnormal [place], [place] Otheron 02-16-2020 Interpretation and review of laboratory results Abnormal [place] Urine Reflex to Cultureon Bilirubin Urine Negative Negative [place] Blood, Urine LARGE Abnormal Negative [place], [place] Clarity, UA Clear Clear [place], [place] Color, UA ORANGE Abnormal Straw/Mower ow [place], [place] Glucose, Ur >=1000 Abnormal Negative mg/dL [place], [place] Ketones Ql (U) TRACE Abnormal Negative mg/dL [place], [place] Leukocyte esterase Test strip Ql (U) Negative Negative [place], [place] Nitrite, Urine Negative Negative [place], [place] pH, UA 5.0 [place], [place] Protein (U) [Mass/Vol] Negative Negat isabella mg/dL [place], [place] Specific Dent, UA 1.044 [place], [place] Urine Reflex to Culture Yes [place], [place] Urobilinogen, Urine 0.2 <2.0 E.U./dL [place] XR SHOULDER RIGHT (MIN 2 VIE WS)on 02-16-2020 PA and outlet view o f the right shoulder was obtained today to evaluate for any degenerative changes. The glenohumeral joint is well-preserved. Normal alignment of the head to the glenoid. Minimal type II acromium. [place], [place] Metabolic Panelon 01-26-2020 Glucose [Mass/Vol] 217 mg/dL above high threshold 74 - 99 [employer] [employer] Work Phone: Glucose [Mass/Vol] 187 mg/dL above high threshold 74 - 99 [facility]tolaryngo [employer] Work Phone: Otheron 01-26-2020 Name GISEL CARLTON Jane Pathologist: Dex CROCKETT of Procedure: 01/26/2020Date Received: 01/26/2020Date Reported 01/30/2020Submitting Physician: JONE MEYERS MDLocation: [facility] Other External # FINAL DIAGNOSISA. TONSILS: [...] clot, measuring 2.4 x 1.5 x 0.5cm. Battery Service Technician sections from all fragments are submitted in two cassettes.TAStas/ 0 -Otolaryngo mooky-Serafin little Work Phone: CT Abdomen and Pelvis withou [...] signed by: TUNDE STALEY 01/24/20 12:42 Normal [facility] [employer] Work Phone: Comment on above: Ordering Provider: Judi BLACKBURN [id number] Complete Blood Count + Kevin segura 01-24-2020 Basophils (Bld) [#/Vol] 0.06 {x10E9/L} See Below [employer] Work Phone: Comment on above: Reference Range: 0.0 0 - 0.10 Ordering Provider: Judi BLACKBURN 91606 Basophils/100 WBC (Bld) 0.7 % 0.0 - 2.0 [employer] Work Phone: Comment on above: Ordering Provider: Jdui BLACKBURN 87089 Eosinophils (Bld) [#/Vol] 0.20 {x10E9/L} See Below [employer] Work Phone: Comment on above: Reference Range: 0.0 0 - 0.70 Ordering Provider: Judi BLACKBURN 31170 Eosinophils/100 WBC (Bld) 2.4 % 0.0 - 6.0 -[facility]tolaryngo [facility] Work Phone: Comment on above: Ordering Provider: Judi BLACKBURN 39308 Erythrocyte distribution width (RBC) [Ratio] 14.0 % See Below -Otolaryngo logy-Manifactffiel d Work Phone: Comment on above: Reference Range: 11. 5 - 14.5 Ordering Provider: Judi BLACKBURN 73850 Hematocrit (Bld) [Volume fraction] 39.5 % See Below -[facility]tolaryngo [facility] Work Phone: Comment on above: Reference Range: 36. 0 - 46.0 Ordering Provider: Judi BLACKBURN 87333 Hemoglobin (Bld) [Mass/Vol] 13.1 g/dL See Below -Otolaryngo [facility] Work Phone: Comment on above: Reference Range: 12. 0 - 16.0 Ordering Provider: Judi BLACKBURN 98629 Lymphocytes (Bld) [#/Vol] 2.10 {x10E9/L} See Below -Otolaryngo [facility]-Manifactffiel d Work Phone: Comment on above: Reference Range: 1.2 0 - 4.80 Ordering Provider: Judi BLACKBURN 11502 Lymphocytes/100 WBC (Bld) 25.7 % See Below [facility] Work Phone: Comment on above: Reference Range: 13. 0 - 44.0 Ordering Provider: Judi BLACKBURN 77150 MCHC (RBC) [Mass/Vol] 33.2 g/dL See Below - Otolaryngo [facility] Work Phone: Comment on above: Reference Range: 32. 0 - 36.0 Ordering Provider: Judi BLACKBURN 21193 MCV (RBC) [Entitic vol] 80 fL 80 - 100 -Otolaryngo [facility] Work Phone: Comment on above: Ordering Provider: D EEPPREET BLACKBURN 39454 Monocytes (Bld) [#/Vol] 0.59 {x10E9/L} See Below MP-Otolaryngo logy-Manifactffiel d Work Phone: Comment on above: Reference Range: 0.1 0 - 1.00 Ordering Provider: Judi NAHEEDFARHAT BLACKBURN 21274 Monocytes/100 WBC (Bld) 7.2 % 2.0 - 10.0 MP-Otolaryngo logy-Sheffiel d Work Phone: Comment on above: Ordering Provider: Judi NAHEEDFARHAT BLACKBURN 40494 Neutrophils (Bld) [#/Vol] 5.20 {x10E9/L} See Below MP-Otolaryngo logy-Manifactffiel d Work Phone: Comment on above: Reference Range: 1.2 0 - 7.70 Ordering Provider: Judi BLACKBURN 53561 Neutrophils/100 WBC (Bld) 63.8 % See Below MP-Otolaryngo logy-Manifactffiel d Work Phone: Comment on above: Reference Range: 40. 0 - 80.0 Ordering Provider: Judi NAHEEDFARHAT BLACKBURN 20860 Platelets (Bld) [#/Vol] 292 {x10E9/L} 150 - 450 MP-Otolaryngo logy-Manifactffiel d Work Phone: Comment on above: Ordering Provider: Judi NAHEEDFARHAT BLACKBURN 58904 RBC (Bld) [#/Vol] 4.96 {x10E12/L} See Below MP -Otolaryngo logy-Manifactffiel d Work Phone: Comment on above: Reference Range: 4.0 0 - 5.20 Ordering Provider: Judi NAHEEDFARHAT BLACKBURN 55759 WBC (Bld) [#/Vol] 8.2 {x10E9/L} 4.4 - 11.3 MP-O tolaryngo logy-Sheffiel d Work Phone: Comment on above: Ordering Provider: Judi BLACKBURN 81854 Complete Blood Count + Differential 0.2 % 0.0 - 0.9 MP-Otolaryngo logy-Sheffiel d Work Phone: Comment on above: Immature Granulocyte Count (IG) includes promyelocytes, myelocytes and metamyelocytes but does not include bands. Percent differential counts (%) should be interpreted in the context of the absolute cell counts (cells/L). Ordering Provider: Judi EMMA BLACKBURN 50726 Metabolic Panelon 01-24-2020 ALP [Catalytic activity/Vol] 84 U/L 33 - 110 MP-Otolaryngo logy-Sheffiel d Work Phone: Comment on above: Ordering Provider: Judi JAVIERKarl BERE 88687 Anion gap [Moles/Vol] 16 mmol/L 10 - 20 MP- Otolaryngo logy-Sheffiel d Work Phone: Comment on above: Ordering Provider: Judi EMMA BLACKBURN 64351 Bilirubin [Mass/Vol] 0.5 mg/dL 0.0 - 1.2 MP-O tolaryngo logy-Sheffiel d Work Phone: Comment on above: Ordering Provider: Judi EMMA BLACKBURN 80975 Calcium [Mass/Vol] 9.6 mg/dL 8.6 - 10.3 MP-Eugenio laryngo logy-Sheffiel d Work Phone: Comment on above: Ordering Provider: Judi BLACKBURN 12665 Chloride [Moles/Vol] 102 mmol/L 98 - 107 MP-O tolaryngo logy-Sheffiel d Work Phone: Comment on above: Ordering Provider: Judi EMMA BLACKBURN 45001 CO2 [Moles/Vol] 24 mmol/L 21 - 32 MP-Otolar yngo logy-Sheffiel d Work Phone: Comment on above: Ordering Provider: Judi EMMA BLACKBURN 61682 Creatinine [Mass/Vol] 0.64 mg/dL See Below MP- Otolaryngo logy-Sheffiel d Work Phone: Comment on above: Reference Range: 0.5 0 - 1.05 Ordering Provider: Judi JAVIERKarl BERE 44403 Glucose [Mass/Vol] 103 mg/dL above high threshold 74 - 99 MP-Otolaryngo logy-Sheffiel d Work Phone: Comment on above: Ordering Provider: Judi CARTER BLACKBURN 88446 Potassium [Moles/Vol] 3.7 mmol/L 3.5 - 5.3 MP- Otolaryngo logy-Sheffiel d Work Phone: Comment on above: Ordering Provider: Judi CARTER BLACKBURN 31097 Protein [Mass/Vol] 7.9 g/dL 6.4 - 8.2 MP-Eugenio laryngo logy-Sheffiel d Work Phone: Comment on above: Ordering Provider: Judi CARTER BLACKBURN 75747 Sodium [Moles/Vol] 138 mmol/L 136 - 145 [facility]-[place] laryngo logy-Sheffiel d Work Phone: Comment on above: Ordering Provider: Judi BLACKBURN 46328 Urea nitrogen [Mass/Vol] 16 mg/dL 6 - 23 MP-Otolaryngo logy-Sheffiel d Work Phone: Comment on above: Ordering Provider: Judi CARTER BLACKBURN 32014 Otheron 01-24-2020 Albumin BCP dye [Mass/Vol] 4.3 g/dL 3.4 - 5.0 MP-Otolaryngo logy-Sheffiel d Work Phone: Comment on above: Ordering Provider: Judi BLACKBURN 67806 ALT With P-5'-P [Catalytic activity/Vol] 20 U/L 7 - 45 MP-Otolaryngo logy-Sheffiel d Work Phone: Comment on above: Patients treated wit h Sulfasalazine may generate falsely decreased results for ALT. Ordering Provider: Judi CARTER BLACKBURN 65113 AST With P-5'-P [Catalytic activity/Vol] 19 U/L 9 - 39 MP-Otolaryngo logy-Sheffiel d Work Phone: Comment on above: Ordering Provider: Judi BLACKBURN 95009 >60 >60 MP-Otolaryngo logy-Sheffiel d Work Phone: Comment on above: Ordering Provider: Judi BLACKBURN 76882 CALCULATIONS OF BRE MATED GFR ARE PERFORMED USING THE MDRD STUDY EQUATION FOR THE IDMS-TRACEABLE CREATININE METHODS. CLIN CHEM 2007;53:766-72 NOT DETECTED See Below MP-Otolaryng o Workubewinifred-Kaushaliel d Work Phone: Comment on above: SOURCE: [...] this test method. Fact sheet for providers: https://www.fda.gov/media/039241/downloadFact sheet for patients: https://www.fda.gov/media/764880/downloadThis test has received FDA Emergency Use Authorization [EUA] and has been verified by [facility] ([facility]). This test is only authorized for the duration of time that circumstances exist to justify the authorization of the emergency use of in vitro diagnostic tests for the detection of SARS-CoV-2 virus and/or diagnosis of COVID-19 infection under section 564(b)(1) of the Act, 21 U.S.C. 360bbb-3(b)(1), unless the authorization is terminated or revoked sooner. [facility] is certified under CLIA-88 as qualified to perform high complexity testing. Testing is performed in the [facility] laboratories located at [address] [place] [address]. Urinalysison 01-24-2020 Appearance (U) HAZY CLEAR MP-Otolary salgado Workubewinifred-[employer] d Work Phone: Comment on above: Ordering Provider: Judi BLACKBURN 66148 Color (U) YELLOW See Below MP-Otolaryngo Workubey-Manifactffiel d Work Phone: Comment on above: Reference Range: STR AW,YELLOW Ordering Provider: Judi BLACKBURN 14008 Glucose Ql (U) Negative NEGATIVE MP-Otolary salgado Workubey-Sheffiel d Work Phone: Comment on above: Ordering Provider: Judi BLACKBURN 86600 Ketones Ql (U) Negative NEGATIVE MP-Otolary salgado logy-Sheffiel d Work Phone: Comment on above: Ordering Provider: Judi BLACKBURN Leukocyte esterase Test strip Ql (U) LARGE (3+) Abnormal NEGATIVE MP-Otolaryngo logy-Sheffiel d Work Phone: Comment on above: Ordering Provider: Judi BLACKBURN 49642 pH (U) 7.0 [pH] 5.0 - 8.0 MP-Otolaryngo logy-Sheffiel d Work Phone: Comment on above: Ordering Provider: Judi BLACKBURN 85007 Protein (U) [Mass/Vol] Negative NEGATIVE MP -Otolaryngo logy-Sheffiel d Work Phone: Comment on above: Ordering Provider: Judi BLACKBURN 22292 RBC (U) [#/Vol] LARGE (3+) Abnormal NEGATIVE MP-Otolar yngo logy-Sheffiel d Work Phone: Comment on above: Ordering Provider: Judi BLACKBURN 60207 Specific gravity (U) [Rel density] 1.017 1 See Below MP-Otolaryngo logy-Sheffiel d Work Phone: Comment on above: Reference Range: 1.0 05 - 1.035 Ordering Provider: Judi BLACKBURN 52232 Urinalysis <2.0 0.0 - 1.9 MP-Otolaryngo logy-Sheffiel d Work Phone: Comment on above: Ordering Provider: Judi BLACKBURN Urinalysis Negative NEGATIVE MP-Otolaryngo logy-Sheffiel d Work Phone: Comment on above: Ordering Provider: Judi BLACKBURN 35925 Urinalysis, Microscopicon RBC (Bld) [#/Vol] >182 Abnormal 0-5 MP-Otol aryngo logy-Sheffiel d Work Phone: Comment on above: Ordering Provider: Judi Thakur Urinalysis, Microscopic 3+ MP-Otolaryngo logy-Manifactffiel d Work Phone: Comment on above: Ordering Provider: Judi Thakur Urinalysis, Microscopic NONE 0-5 MP-Otolaryngo logy-Sheffiel d Work Phone: Comment on above: Ordering Provider: Judi Thakur Urinalysis, Microscopic 48 {/HPF} MP-Otolaryngo logy-Sheffiel d Work Phone: Comment on above: Ordering Provider: Judi Thakur CBC Auto Differentialon 12-27 Basophils (Bld) [#/Vol] 0.2 10*3/uL 0 - 0.2 K/uL [place] Basophils/100 WBC (Bld) 1.9 % [place] Eosinophils (Bld) [#/Vol] 0.2 10*3/uL 0 - 0.7 K/uL [place] Eosinophils/100 WBC (Bld) 1.9 % [place] Erythrocyte distribution width (RBC) [Ratio] 15.6 % High 11.5 - 14.5 % [place] Hematocrit (Bld) [Volume fraction] 39.6 % 37 - 47 % [place] Hemoglobin (Bld) [Mass/Vol] 13.2 g/dL 12 - 16 g/dL [place] Interpretation and review of laboratory results Abnormal [place] Lymphocytes (Bld) [#/Vol] 2.9 10*3/uL 1 - 4.8 K/uL [place] Lymphocytes/100 WBC (Bld) 34.3 % [place] MCH (RBC) [Entitic mass] 27.1 pg 27 - 31.3 pg [place] MCHC (RBC) [Mass/Vol] 33.4 % 33 - 37 % [place] MCV (RBC) [Entitic vol] 81.2 fL Low 82 - 100 fL [place] Monocytes (Bld) [#/Vol] 0.6 10*3/uL 0.2 - 0.8 K/uL [place], [place] Monocytes/100 WBC (Bld) 6.8 % [place] Neutrophils Absolute 4.6 K/uL 1.4 - 6 .5 K/uL [place] Neutrophils/100 WBC (Bld) 55.1 % [place] Platelets (Bld) [#/Vol] 342 10*3/uL 130 - 400 K/uL [place] RBC (Bld) [#/Vol] 4.88 10*6/uL [place] WBC (Bld) [#/Vol] 8.4 10*3/uL 4.8 - 10.8 K/uL [place] Comprehensive Metabolic Pane loco 01-13-2020 Albumin [Mass/Vol] 4.2 g/dL 3.5 - 4.6 g/dL [place] ALP [Catalytic activity/Vol] 83 U/L 40 - 130 U/L [place], [place] ALT [Catalytic activity/Vol] 23 U/L 0 - 33 U/L [place], [place] Comment on above: Specimen hemolysis h as exceeded the interference as defined by Mariah. Result may be affected. Suggest recollection if clinically indicated. Anion gap [Moles/Vol] 15 mmol/L [place], [place] AST [Catalytic activity/Vol] 28 U/L 0 - 35 U/L [place], [place] Comment on above: Specimen hemolysis h as exceeded the interference as defined by Mariah. Value may be falsely increased. Suggest recollection if clinically indicated. Bilirubin Ql (U) <0.2 0.2 - 0.7 mg/dL [place], [place] Calcium [Mass/Vol] 9.8 mg/dL 8.5 - 9.9 mg/dL [place], [place] Chloride [Moles/Vol] 100 mmol/L [place], [place] CO2 [Moles/Vol] 22 mmol/L [place], [place] Creatinine [Mass/Vol] 0.62 mg/dL 0.5 - 0.9 mg/dL [place], [place] GFR >60.0 >60 [place], [place] Comment on above: >60 mL/min/1.73m2 EG FR, calc. for ages 18 and older using the MDRD formula (not corrected for weight), is valid for stable renal function. GFR Non- >60.0 >60 [place], [place] Comment on above: >60 mL/min/1.73m2 EG FR, calc. for ages 18 and older using the MDRD formula (not corrected for weight), is valid for stable renal function. Globulin (S) [Mass/Vol] 3.7 g/dL High 2.3 - 3.5 g/dL [place], [place] Glucose [Mass/Vol] 374 mg/dL High 70 - 99 mg/dL [place], [place] Interpretation and review of laboratory results Abnormal [place], [place] Potassium [Moles/Vol] 4.6 mmol/L [place] Comment on above: Specimen hemolysis h as exceeded the interference as defined by Mariah. Value may be falsely increased. Suggest recollection if clinically indicated. Protein [Mass/Vol] 7.9 g/dL 6.3 - 8 g/dL [place], [place] Sodium [Moles/Vol] 137 mmol/L [place], [place] Urea nitrogen [Mass/Vol] 18 mg/dL 6 - 20 mg/dL [place], [place] Lactate, Sepsison 01-13-2020 Interpretation and review of laboratory results Abnormal [place], [place] Lactic Acid, Sepsis 3.1 mmol/L Critically high 0.5 - 1.9 mmol/L [place], [place] CALL [facility] tel. [phone], Lactic acid results called to and read back by Grace Sutherland, 01/13/2020 23:06, by TORRI [place], [place] Lipaseon 01-13-2020 Lipase [Catalytic activity/Vol] 56 U/L 12 - 95 U/L [place], [place] Microscopic Urinalysison Bacteria, UA MODERATE Abnormal Negative /HPF [place], [place] Epithelial Cells, UA 10-20 [place], [place] Hyaline Casts, UA 1-3 [place], [place] RBC (U) [#/Vol] /uL High [facility] [place], [place] WBC, UA 50-100 Abnormal [place], [place] Otheron 01-13-2020 Interpretation and review of laboratory results Abnormal [place], [place] POCT CREATININEon 01-13-2020 Creatinine [Mass/Vol] 0.6 mg/dL [place], [place] Interpretation and review of laboratory results Normal [place], [place] Urine Reflex to Cultureon Bilirubin Urine Negative Negative [place], [place] Blood, Urine LARGE Abnormal Negative [place], [place] Clarity, UA CLOUDY Abnormal Clear [place], [place] Color, UA RED Abnormal Straw/Mower ow [place], [place] Glucose, Ur >=1000 Abnormal Negative mg/dL [place], [place] Ketones Ql (U) TRACE Abnormal Negative mg/dL [place], [place] Leukocyte esterase Test strip Ql (U) SMALL Abnormal Negative [place], [place] Nitrite, Urine Negative Negative [place], [place] pH, UA 6.0 [place], [place] Protein (U) [Mass/Vol] Negative Negat isabella mg/dL [place], [place] Specific Dent, UA 1.038 [place], [place] Urine Reflex to Culture Yes [place], [place] Urobilinogen, Urine 0.2 <2.0 E.U./dL [place], [place] Amylaseon 01-08-2020 Amylase [Catalytic activity/Vol] 44 U/L 22 - 93 U/L [place], [place] CBC Auto Differentialon 12-27 Basophils (Bld) [#/Vol] 0.1 10*3/uL 0 - 0.2 K/uL [place], [place] Basophils/100 WBC (Bld) 0.9 % [place], [place] Eosinophils (Bld) [#/Vol] 0.2 10*3/uL 0 - 0.7 K/uL [place], [place] Eosinophils/100 WBC (Bld) 2.4 % [place], [place] Erythrocyte distribution width (RBC) [Ratio] 15.3 % High 11.5 - 14.5 % [place], [place] Hematocrit (Bld) [Volume fraction] 41.5 % 37 - 47 % [place], [place] Hemoglobin (Bld) [Mass/Vol] 13.9 g/dL 12 - 16 g/dL [place], [place] Lymphocytes (Bld) [#/Vol] 2.3 10*3/uL 1 - 4.8 K/uL [place], [place] Lymphocytes/100 WBC (Bld) 30.4 % [place], [place] MCH (RBC) [Entitic mass] 26.7 pg Low 27 - 31.3 pg [place], [place] MCHC (RBC) [Mass/Vol] 33.6 % 33 - 37 % [place], [place] MCV (RBC) [Entitic vol] 79.5 fL Low 82 - 100 fL [place], [place] Monocytes (Bld) [#/Vol] 0.5 10*3/uL 0.2 - 0.8 K/uL [place], [place] Monocytes/100 WBC (Bld) 7.3 % [place], [place] Neutrophils Absolute 4.4 K/uL 1.4 - 6 .5 K/uL [place], [place] Neutrophils/100 WBC (Bld) 59.0 % [place], [place] Platelets (Bld) [#/Vol] 327 10*3/uL 130 - 400 K/uL [place], [place] RBC (Bld) [#/Vol] 5.23 10*6/uL [place], [place] WBC (Bld) [#/Vol] 7.4 10*3/uL 4.8 - 10.8 K/uL [place], [place] Comprehensive Metabolic Pane l w/ Reflex to MGon 01-08-2020 Albumin [Mass/Vol] 4.7 g/dL High 3.5 - 4.6 g/dL [place], [place] ALP [Catalytic activity/Vol] 83 U/L 40 - 130 U/L [place], [place] ALT [Catalytic activity/Vol] 20 U/L 0 - 33 U/L [place], [place] Anion gap [Moles/Vol] 12 mmol/L [place], [place] AST [Catalytic activity/Vol] 21 U/L 0 - 35 U/L [place], [place] Bilirubin Ql (U) 0.3 mg/dL 0.2 - 0.7 mg/dL [place], [place] Calcium [Mass/Vol] 10.6 mg/dL High 8.5 - 9.9 mg/dL [place], [place] Chloride [Moles/Vol] 101 mmol/L [place], [place] CO2 [Moles/Vol] 25 mmol/L [facility] [place], [place] Creatinine [Mass/Vol] 0.53 mg/dL 0.5 - 0.9 mg/dL [place], [place] GFR >60.0 >60 [place], [place] Comment on above: >60 mL/min/1.73m2 EG FR, calc. for ages 18 and older using the MDRD formula (not corrected for weight), is valid for stable renal function. GFR Non- >60.0 >60 [place], [place] Comment on above: >60 mL/min/1.73m2 EG FR, calc. for ages 18 and older using the MDRD formula (not corrected for weight), is valid for stable renal function. Globulin (S) [Mass/Vol] 3.6 g/dL High 2.3 - 3.5 g/dL [place], [place] Glucose [Mass/Vol] 147 mg/dL High 70 - 99 mg/dL [place], [place] Interpretation and review of laboratory results Abnormal [place], [place] Potassium [Moles/Vol] 4.3 mmol/L [place] Protein [Mass/Vol] 8.3 g/dL High 6.3 - 8 g/dL [place], [place] Sodium [Moles/Vol] 138 mmol/L [place], [place] Urea nitrogen [Mass/Vol] 17 mg/dL 6 - 20 mg/dL [place], [place] Lipaseon 01-08-2020 Lipase [Catalytic activity/Vol] 26 U/L 12 - 95 U/L [place], [place] Microscopic Urinalysison Bacteria, UA FEW Abnormal Negative /HPF [place], [place] Epithelial Cells, UA 6-10 [place], [place] Hyaline Casts, UA 0-1 [place], [place] Interpretation and review of laboratory results Abnormal [place], [place] RBC (U) [#/Vol] /uL High [facility], [place] WBC, UA 20-50 Abnormal [place], [place] Bacteria, UA FEW Abnormal Negative /HPF [place] Epithelial Cells, UA 6-10 [place], [place] Hyaline Casts, UA 3-5 [place], [place] RBC (U) [#/Vol] /uL High [place], [place] WBC, UA 20-50 Abnormal [place], KY Otheron 01-08-2020 Interpretation and review of laboratory results Abnormal [place] Interpretation and review of laboratory results Abnormal [place] Urinalysis, reflex to micros copicon 01-08-2020 Bilirubin Urine Negative Negative [place], [place] Blood, Urine LARGE Abnormal Negative [place], [place] Clarity, UA CLOUDY Abnormal Clear [place], [place] Color, UA Yellow Straw/Mower ow [place], [place] Glucose, Ur Negative Negative mg/dL [place], [place] Ketones Ql (U) TRACE Abnormal Negative mg/dL [place], [place] Leukocyte esterase Test strip Ql (U) MODERATE Abnormal Negative [place], [place] Nitrite, Urine Negative Negative [place], [place] pH, UA 5.0 [place], [place] Protein (U) [Mass/Vol] TRACE Abnormal Negat isabella mg/dL [place], [place] Specific Dent, UA 1.028 [place], [place] Urobilinogen, Urine 0.2 <2.0 E.U./dL [place], [place] Urine Reflex to Cultureon Bilirubin Urine Negative Negative [place], [place] Blood, Urine LARGE Abnormal Negative [place], [place] Clarity, UA CLOUDY Abnormal Clear [place], [place] Color, UA Yellow Straw/Mower ow [place], [place] Glucose, Ur Negative Negative mg/dL [place], [place] Ketones Ql (U) TRACE Abnormal Negative mg/dL [place], [place] Leukocyte esterase Test strip Ql (U) MODERATE Abnormal Negative [place], [place] Nitrite, Urine Negative Negative [place], [place] pH, UA 5.0 [place], [place] Protein (U) [Mass/Vol] TRACE Abnormal Negat isabella mg/dL [place], [place] Specific Dent, UA 1.027 [place], [place] Urine Reflex to Culture Yes [place] Urobilinogen, Urine 0.2 <2.0 E.U./dL [place], [place] ED Provider Noteon 0 ED Provider [...] Description:Cholecystecto my Description:Hernia repair Description: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 for ages 18 and older using the MDRD formula (not corrected for weight), is valid for stable renal function. GFR Non- >60.0 >60 [place], [place] Comment on above: >60 mL/min/1.73m2 EG FR, calc. for ages 18 and older using the MDRD formula (not corrected for weight), is valid for stable renal function. Glucose [Mass/Vol] 102 mg/dL High 70 - 99 mg/dL [place], [place] Interpretation and review of laboratory results Abnormal [place], [place] Potassium [Moles/Vol] 3.9 mmol/L [place] Sodium [Moles/Vol] 134 mmol/L [place], [place] Urea nitrogen [Mass/Vol] 15 mg/dL 6 - 20 mg/dL [place], [place] CBC Auto Differentialon 09-28 Basophils (Bld) [#/Vol] 0.1 10*3/uL 0 - 0.2 K/uL [place], [place] Basophils/100 WBC (Bld) 1.4 % [place], [place] Eosinophils (Bld) [#/Vol] 0.3 10*3/uL 0 - 0.7 K/uL [place], [place] Eosinophils/100 WBC (Bld) 4.1 % [place] Erythrocyte distribution width (RBC) [Ratio] 13.8 % 11.5 - 14.5 % [place], [place] Hematocrit (Bld) [Volume fraction] 40.1 % 37 - 47 % [place], [place] Hemoglobin (Bld) [Mass/Vol] 13.1 g/dL 12 - 16 g/dL [place], [place] Interpretation and review of laboratory results Abnormal [place], [place] Lymphocytes (Bld) [#/Vol] 2.6 10*3/uL 1 - 4.8 K/uL [place], [place] Lymphocytes/100 WBC (Bld) 35.3 % [place] MCH (RBC) [Entitic mass] 26.4 pg Low 27 - 31.3 pg [place], [place] MCHC (RBC) [Mass/Vol] 32.8 % Low 33 - 37 % [place], [place] MCV (RBC) [Entitic vol] 80.4 fL Low 82 - 100 fL [place], [place] Monocytes (Bld) [#/Vol] 0.5 10*3/uL 0.2 - 0.8 K/uL [place], [place] Monocytes/100 WBC (Bld) 6.3 % [place], [place] Neutrophils Absolute 3.9 K/uL 1.4 - 6 .5 K/uL [place], [place] Neutrophils/100 WBC (Bld) 52.9 % [place] Platelets (Bld) [#/Vol] 290 10*3/uL 130 - 400 K/uL [place], [place] RBC (Bld) [#/Vol] 4.98 10*6/uL [place], [place] WBC (Bld) [#/Vol] 7.4 10*3/uL 4.8 - 10.8 K/uL [place], [place] Microscopic Urinalysison Bacteria, UA RARE Abnormal Negative /HPF [place] Epithelial Cells, UA 10-20 [place], [place] Hyaline Casts, UA 10-20 [facility] [place] Interpretation and review of laboratory results Abnormal [place], [place] Mucus, UA Present None Seen /LPF [place] RBC (U) [#/Vol] /uL [facility] [place] WBC, UA 6-10 Abnormal [place], [place] Urine Reflex to Cultureon Bilirubin Urine Negative Negative [place], [place] Blood, Urine LARGE Abnormal Negative [place], [place] Clarity, UA CLOUDY Abnormal Clear [place], [place] Color, UA Yellow Straw/Mower ow [place], [place] Glucose, Ur Negative Negative mg/dL [place], [place] Interpretation and review of laboratory results Abnormal [place], [place] Ketones Ql (U) Negative Negative mg/dL [place], [place] Leukocyte esterase Test strip Ql (U) Negative Negative [place], [place] Nitrite, Urine Negative Negative [place], [place] pH, UA 5.0 [place], [place] Protein (U) [Mass/Vol] TRACE Abnormal Negat isabella mg/dL [place], [place] Specific Dent, UA 1.040 [place], [place] Urine Reflex to Culture YES [place], [place] Urobilinogen, Urine 1.0 <2.0 E.U./dL [place], [place] Microscopic Urinalysison Bacteria, UA FEW Abnormal Negative /HPF [place], [place] Epi Cells 6-10 [place], KY Hyaline Casts, UA 0-1 [place], [place] Interpretation and review of laboratory results Abnormal [place], [place] RBC (U) [#/Vol] /uL [place], [place] WBC, UA 20-50 Abnormal [place], [place] Urine Reflex to Cultureon Bilirubin Urine Negative Negative [place], [place] Blood, Urine LARGE Abnormal Negative [place], [place] Clarity, UA Clear Clear [place], [place] Color, UA Yellow Straw/Mower ow [place], [place] Glucose, Ur >=1000 Abnormal Negative mg/dL [place], [place] Interpretation and review of laboratory results Abnormal [place], [place] Ketones Ql (U) Negative Negative mg/dL [place], [place] Leukocyte esterase Test strip Ql (U) TRACE Abnormal Negative [place], [place] Nitrite, Urine Negative Negative [place], [place] pH, UA 5.5 [place], [place] Protein (U) [Mass/Vol] Negative Negat isabella mg/dL [place], [place] Specific Dent, UA 1.030 [place], [place] Urine Reflex to Culture YES [place] Urobilinogen, Urine 0.2 <2.0 E.U./dL [place], [place] Coding Summaryon 07-15-2019 Coding Summary CODING DATE: [facility] STATUS: PAYOR: Commercial Insurance ADMIT DX: REASON FOR VISIT DX: R10.9 Unspecified abdominal pain FINAL DX: PRINCIPAL: R10.9 Unspecified abdominal pain SECONDARY: R31.29 Other microscopic hematuria Z87.442 Personal history of urinary calculi E11.65 Type 2 diabetes mellitus with hyperglycemia R79.89 Other specified abnormal findings of blood chemistry R00.0 Tachycardia, unspecified R11.2 Nausea with vomiting, unspecified 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 However, the narrative phrase printed from the coding software may appear abbreviated, or result in slightly different terminology. Coded By: Karen Madsen Date Saved: 07/15/2019 11:04 am [facility] Coding Summary CODING DATE: [facility] STATUS: Against Medical Advice PAYOR: Commercial [...] unspecified R11.2 Nausea with vomiting, unspecified Z79.4 nursing home (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 of insulin PYMT PROC APC STAT DESCRIPTION DOCTOR NAME DATE NOTE: The code number assigned matches the documented diagnosis and / or procedure in the patient's chart. However, the narrative phrase printed from the coding software may appear abbreviated, or result in slightly different terminology. Coded By: Karen Madsen Date Saved: 07/15/2019 11:01 am [facility] Consent Formson 07-15-2019 Consent Forms [id number] Normal [facility] ED Clinical Summaryon 2019 ED Clinical Summary [facility] - Emergency Department [address] [place], [place] [id number] ED Clinical Summary PERSON INFORMATION Name: GISEL CARLTON Age: 44 Years Sex: FEMALE : 1975 MRN: Acct#: Visit Reason: Flank pain; FLANK PAIN, VOMITING Arrival: 07/14/2019 20:31:12 Discharge: 07/14/2019 23:03:00 LOS: 000 02:32 Check In: 07/14/2019 20:31:12 Checkout:07/14/2019 23:03:00 Address: [address] [place] [id number] PCP: Provider, None PROVIDER INFORMATION Provider Role Assigned Unassigned Casper Tate ED PA 07/14/2019 20:33:29 Tomasz RN, [facility] ED Nurse 07/14/2019 20:35:31 VITALS INFORMATION [...] % Auto Lymph % 25 % Auto [place] % 7 % Auto Eos % 2.3 % Auto Baso % 0.5 % Neut Abs# 5.6 x103/mcL Lymph Abs# 2.2 x103/mcL [place] Abs# 0.6 x103/mcL Eos Abs# 0.2 x103/mcL [...] discharged. Impression and Plan Diagnosis Flank pain (WQR19-BM R10.9, Discharge, Medical) Hematuria, microscopic (LPX52-ZD R31.29, Discharge, Medical) History of kidney stones (YCV08-IW Z87.442, Discharge, Medical) Hyperglycemia (FCP07-HJ R73.9, Discharge, Medical) Lactic acid blood increased (LXN13-AQ R79.89, Discharge, Medical) Nausea (CCQ87-PD R11.0, Discharge, Medical) Tachycardia (NWR68-ZC R00.0, Discharge, Medical) Plan Condition: Improved, Stable. [...] insulin subcutaneous. With: Address: When: Aditya Sethi [address] [place] [address], [address] [place] [address] Business (1) Within 3 to 5 days With: Address: When: None Provider Within 3 to 5 days DIAGNOSIS: Flank pain; Hematuria, microscopic; History of kidney stones; Hyperglycemia; Lactic acid blood increased; Nausea; Tachycardia Patient Understands: Yes - Patient/family/caregiver verbalizes understanding of instructions given Comment: [facility] ED Patient Education Noteon 07-15-2019 ED Patient [...] these instructions at home: Medicines ? Take ipac-bts-cqymcbu and prescription medicines only as told by [...] the blood stops without treatment. ? Take cxbb-ygt-rtydczk and prescription medicines only as told by your health care provider. ? Drink enough fluid to keep your urine clear or pale yellow. This information is not intended to replace advice given to you by your health care provider. Make sure you discuss any questions you have with your health care provider. Document Released: 06/15/2006 Document Revised: 07/18/2017 Document Reviewed: 07/18/2017 [employer] Patient Education ? 2019 [employer] Obstetrics and Gynecology Hyperglycemia Hyperglycemia occurs [...] polycystic ovarian syndrome (PCOS). ? Being of Togolese-Nigerien, -Togolese, /, or / descent. What are the [...] instructions at home: General instructions ? Take fhkg-auj-gpaphpd and prescription medicines only as told by [...] 12/09/2001 Document Revised: 03/02/2017 Document Reviewed: 03/02/2017 [employer] Patient Education ? 2019 [employer] Urology Kidney Stones Kidney stones (urolithiasis) are [...] kidney stones in the future. ? Take xlhb-bqo-tczhprq and prescription medicines only as told by [...] 06/15/2006 Document Revised: 11/26/2017 Document Reviewed: 11/28/2016 [employer] Patient Education ? 2019 [employer] Normal [facility] ED Patient Summaryon 020 ED Patient Summary [facility] - Emergency Department [address] [place], [place] [id number] PATIENT DISCHARGE INSTRUCTIONS Patient Information Name: GISEL CARLTON Age: 44 Years Date of : 1975 Reason For Visit: Flank pain; FLANK PAIN, VOMITING Arrival Time: 07/14/2019 20:31:12 Primary Care Physician: Provider, None Attending Physician: Grace Servin D.O. Comment: Visit Diagnosis: Diagnoses This Visit Flank pain ([id number]) Flank pain (R10.9) Hematuria, microscopic (R31.29) History [...] alcohol and/or drug addiction problems; contact the [facility] 19/01 Crisis Hotline -Text 4HOPE to 422464. If you received any narcotics, sedation, or [...] insulin subcutaneous. With: Address: When: Aditya Sethi [address] [facility], [address] [place] [id number] Business (1) Within 3 to 5 days With: Address: When: None Provider Within 3 to 5 days Medication Information: The exam and treatment you received today in the [facility] Emergency Department were for an urgent problem and are not intended as complete care. It is important for you to follow up with a doctor, nurse practitioner, or physician?s assistant broker for ongoing care. If your symptoms become [...] so we can reach you if necessary. [facility] Emergency Department has provided you with a complete list of medications post discharge. Please inform your critical care clinical nurse specialist/provider of your visit and for further instruction [...] kidney stones in the future. ? Take bhfd-qvd-gnnunnj and prescription medicines only as told by [...] 06/15/2006 Document Revised: 11/26/2017 Document Reviewed: 11/28/2016 [employer] Patient Education ? 2019 [employer] Hyperglycemia Hyperglycemia occurs when the level [...] polycystic ovarian syndrome (PCOS). ? Being of Togolese-Nigerien, -Togolese, /, or / descent. What are the [...] instructions at home: General instructions ? Take odgu-nai-tylhtbs and prescription medicines only as told by [...] 12/09/2001 Document Revised: 03/02/2017 Document Reviewed: 03/02/2017 [employer] Patient Education ? 2019 [employer] Hematuria, Adult Hematuria is blood in [...] these instructions at home: Medicines ? Take jnwo-atu-zhwktlk and prescription medicines only as told by [...] the blood stops without treatment. ? Take kkvr-yxz-flmkcrw and prescription medicines only as told by your health care provider. ? Drink enough fluid to keep your urine clear or pale yellow. This information is not intended to replace advice given to you by your health care provider. Make sure you discuss any questions you have with your health care provider. Document Released: 06/15/2006 Document Revised: 07/18/2017 Document Reviewed: 07/18/2017 [employer] Patient Education ? 2019 [employer] Viruses or Bacteria What?s got you [...] Disease Control and Prevention February 2014 Normal [facility] .Auto Diff 07-14-2019 Auto [place] % 7 % Normal -12 [facility] Comment on above: Performed By: #### 1 [id number], [id number] #### [facility] (DEFAULT) [address] [place] [address] Baso Abs# 0.0 x10 Normal 0.0-0.2 [facility] Comment on above: Performed By: #### 1 [id number], [id number], [id number] #### [facility] (DEFAULT) [address] [place] [address] Basophils/100 WBC (Bld) 0.5 % Normal 0.2-2.0 [facility] Comment on above: Performed By: #### 1 [id number], [id number] #### [facility] (DEFAULT) [address] [place] [address] Eos Abs# 0.2 x10 Normal 0.0-0.4 [facility] Comment on above: Performed By: #### 1 [id number], [id number], [id number], [id number] #### [facility] (DEFAULT) [address] [place] [address] Eosinophils/100 WBC (Bld) 2.3 % Normal 0.9-4.0 [facility] Comment on above: Performed By: #### 1 [id number], [id number], [id number] #### [facility] (DEFAULT) [address] [place] [address] Lymphocytes (Bld) [#/Vol] 2.2 x10 Normal 1.3-2.9 [facility] Comment on above: Performed By: #### 1 [id number], [id number], [id number] #### [facility] (DEFAULT) [address] [place] [address] Lymphocytes/100 WBC (Bld) 25 % Normal 14-48 [facility] Comment on above: Performed By: #### 1 [id number], [id number], [id number], [id number], [id number], [id number] #### [facility] (DEFAULT) [address] [place] [address] [place] Abs# 0.6 x10 Normal 0.0-0.8 [facility] Comment on above: Performed By: #### 1 [id number], [id number], [id number] #### [facility] (DEFAULT) [address] [place] [address] Neut Abs# 5.6 x10 Normal 1.5-9.2 [facility] Comment on above: Performed By: #### 1 [id number], [id number], [id number] #### [facility] (DEFAULT) [address] [place] [address] Neutrophils/100 WBC (Bld) 65 % Normal 44-88 [facility] Comment on above: Performed By: #### 1 [id number], [id number], [id number] #### [facility] (DEFAULT) [address] [place] [address] CBC Auto DifferentialOrdered By: Rickey Davis on 07-14-2019 Basophils (Bld) [#/Vol] 0.1 10*3/uL 0 - 0.2 K/uL [employer] Phone: Basophils/100 WBC (Bld) 1.1 % [employer] Phone: Eosinophils (Bld) [#/Vol] 0.2 10*3/uL 0 - 0.7 K/uL [employer] Phone: Eosinophils/100 WBC (Bld) 2.5 % [employer] Phone: Erythrocyte distribution width (RBC) [Ratio] 15.2 % High 11.5 - 14.5 % [employer] Phone: Hematocrit (Bld) [Volume fraction] 39.7 % 37 - 47 % [employer] Phone: Hemoglobin (Bld) [Mass/Vol] 13.6 g/dL 12 - 16 g/dL [employer] Phone: Interpretation and review of laboratory results Abnormal [employer] Phone: Lymphocytes (Bld) [#/Vol] 1.7 10*3/uL 1 - 4.8 K/uL [employer] Phone: Lymphocytes/100 WBC (Bld) 21.3 % [employer] Phone: MCH (RBC) [Entitic mass] 27.6 pg 27 - 31.3 pg [employer] Phone: MCHC 34.3 % 33 - 37 % [employer] Phone: MCV (RBC) [Entitic vol] 80.5 fL Low 82 - 100 fL [employer] Phone: Monocytes (Bld) [#/Vol] 0.5 10*3/uL 0.2 - 0.8 K/uL [employer] Phone: Monocytes/100 WBC (Bld) 6.7 % [employer] Phone: Neutrophils Absolute 5.6 K/uL 1.4 - 6 .5 K/uL [employer] Phone: Neutrophils/100 WBC (Bld) 68.4 % [employer] Phone: Platelets (Bld) [#/Vol] 235 10*3/uL 130 - 400 K/uL [employer] Phone: RBC (Bld) [#/Vol] 4.93 10*6/uL [employer] Phone: WBC (Bld) [#/Vol] 8.1 10*3/uL 4.8 - 10.8 K/uL [employer] Phone: CBC w/ Auto Diffon 0 Erythrocyte distribution width (RBC) [Ratio] 14.9 % Normal 11.5-15.0 [facility] Comment on above: Performed By: #### 1 [id number], [id number], 9782956, 27758547, 4215320, [id number] #### [facility] (DEFAULT) [address] [place] [address] Hematocrit (Bld) [Volume fraction] 38.1 % Normal 33.7-40.4 [facility] Comment on above: Performed By: #### 1 [id number], [id number], 6273974, 95038613, 4963647, [id number] #### [facility] (DEFAULT) [address] [place] [address] Hemoglobin (Bld) [Mass/Vol] 13.1 g/dL Normal 11.3-15.9 [facility] Comment on above: Performed By: #### 1 [id number], [id number], 5682005, 60935215, 1577331, [id number] #### [facility] (DEFAULT) [address] [place] [address] Man Diff? Auto Normal [facility] Comment on above: Performed By: #### 1 [id number], [id number], 1813616, 31664128, 9316352, [id number] #### [facility] (DEFAULT) [address] [place] [address] MCH (RBC) [Entitic mass] 27 pg Normal 24-34 [facility] Comment on above: Performed By: #### 1 [id number], [id number], 6789610, 74671858, 8342391, [id number] #### [facility] (DEFAULT) [address] [place] [address] MCHC (RBC) [Mass/Vol] 34 g/dL Normal 26-37 [facility] Comment on above: Performed By: #### 1 [id number], [id number], 4688610, 88924795, 9090987, [id number] #### [facility] (DEFAULT) [address] [place] [address] MCV (RBC) [Entitic vol] 79 fL Low 81-100 [facility] Comment on above: Performed By: #### 1 [id number], [id number], 1712232, 18778533, 5224006, [id number] #### [facility] (DEFAULT) [address] [place] [address] Platelet mean volume (Bld) [Entitic vol] 9.5 fL Normal 6.3-10.2 [facility] Comment on above: Performed By: #### 1 [id number], [id number], 8813361, 19630424, 1221622, [id number] #### [facility] (DEFAULT) [address] [place] [address] Platelets (Bld) [#/Vol] 255 x10 Normal 138-427 [facility] Comment on above: Performed By: #### 1 [id number], 9131132469, 7343874, 17956934, 5926550, [id number] #### [facility] (DEFAULT) [address] [place] [address] RBC (Bld) [#/Vol] 4.81 x10 Normal 3.70-5.30 [facility] Comment on above: Performed By: #### 1 [id number], 5225327639, 6621588, 61584587, 3594162, 7920787544 #### [facility] (DEFAULT) [address] [place] [address] WBC (Bld) [#/Vol] 8.7 x10 Normal 3.5-10.5 [facility] Comment on above: Performed By: #### 1 [id number], 8307689948, 7648000, 51598925, 6074198, 7307879031 #### [facility] (DEFAULT) [address] [place] [address] Standardon 07-14-2019 eGFR Non AA >60 [facility] Comment on above: Performed By: #### 1 [id number], 5974304641, 9210834, 06954697, 3385334, 1788061030 #### [facility] (DEFAULT) [address] [place] [address] eGFR AA >60 [facility] Comment on above: Result Comment: [employer] Operator aiyana Kidney disease could be indicated at eGFRs of less than 60 ml/min/1.73m2. Kidney Failure is indicated at less than 15 ml/min/1.73m2 Performed By: #### 1 [id number], 7882994109, 9610442, 91389548, 4851337, 2115484099 #### [facility] (DEFAULT) [address] [place] [address]90 Albumin [Mass/Vol] 4.2 g/dL Normal 3.5-5.0 [facility] Comment on above: Performed By: #### 1 [id number], 1797182751, 8362949, 68823446, 4627059, 4067929595 #### [facility] (DEFAULT) [address] [place] [address] Albumin/Globulin [Mass ratio] 1.2 {ratio} Low 1.4-2.6 [facility] Comment on above: Performed By: #### 1 [id number], [id number], 9273904, 24369596, 9050233, 9673085355 #### [facility] (DEFAULT) [address] [place] [address] Alk Phos 73 IU/L Normal 32-91 [facility] Comment on above: Performed By: #### 1 [id number], 2209091060, 9426176, 57172525, 9746714, 6390878898 #### [facility] (DEFAULT) [address] [place] [address]191 ALT/SGPT 17.0 IU/L Normal 14.0-54.0 [facility] Comment on above: Performed By: #### 1 [id number], 6838787238, 1610316, 08956164, 8574129, 5040691737 #### [facility] (DEFAULT) [address] [place] [address] Anion gap [Moles/Vol] 16.0 mmol/L Normal 5.0-19.0 [facility] Comment on above: Performed By: #### 1 [id number], 4982719036, 3750295, 18179747, 5939929, 6244306020 #### [facility] (DEFAULT) [address] [place] [address] 60198 AST/SGOT 17 IU/L Normal 15-41 [facility] Comment on above: Performed By: #### 1 [id number], 3879889447, 1990945, 61075530, 0460408, 5621927946 #### [facility] (DEFAULT) [address] [place] [address] 80394 Bili Total 0.6 mg/dL Normal 0.3-1.2 [facility] Comment on above: Performed By: #### 1 [id number], 2114997731, 2524008, 06704568, 1821266, 2436251794 #### [facility] (DEFAULT) [address] [place] [address]2973 Calcium [Mass/Vol] 9.6 mg/dL Normal 8.9-10.3 [facility] Comment on above: Performed By: #### 1 [id number], 9048603586, 3665211, 54674139, 9073642, 9313975219 #### [facility] (DEFAULT) [address] [place] [address] 82718 Chloride [Moles/Vol] 97 mmol/L Low 101-111 [facility] Comment on above: Performed By: #### 1 [id number], 2985074889, 9168229, 34749486, 9478106, 5445935300 #### [facility] (DEFAULT) [address] [place] [address] CO2 [Moles/Vol] 26 mmol/L Normal 21-32 [facility] Comment on above: Performed By: #### 1 [id number], 0882141063, 0193352, 91835796, 3281361, 4717966974 #### [facility] (DEFAULT) [address] [place] [address] 49561 Creatinine [Mass/Vol] 0.89 mg/dL Normal 0.60-1.30 [facility] Comment on above: Performed By: #### 1 [id number], 8126504857, 1613527, 90936095, 5000909, 0981058527 #### [facility] (DEFAULT) [address] [place] [address]147 Globulin (S) [Mass/Vol] 3.5 g/dL Normal 1.5-4.3 [facility] Comment on above: Performed By: #### 1 [id number], 1196050184, 2094985, 59971594, 1734735, 4812061659 #### [facility] (DEFAULT) [address] [place] [address] 45980 Glucose [Mass/Vol] 419.0 mg/dL High 74.0-118.0 [facility] Comment on above: Performed By: #### 1 [id number], 7083710160, 7392146, 70572028, 2044051, 9717582348 #### [facility] (DEFAULT) [address] [place] [address]1455 Osmolality [Osmolality] 289 mOsm/L [facility] Comment on above: Performed By: #### 1 [id number], 2754115934, 8735570, 61479886, 5963419, 8371240199 #### [facility] (DEFAULT) [address] [place] [address] 68975 Potassium [Moles/Vol] 4.0 mmol/L Normal 3.6-5.1 [facility] Comment on above: Performed By: #### 1 [id number], 6720751540, 4501710, 97078460, 6196307, 1175757519 #### [facility] (DEFAULT) [address] [place] [address] 34854 Protein [Mass/Vol] 7.7 g/dL Normal 6.5-8.1 [facility] Comment on above: Performed By: #### 1 [id number], 2207587109, 6895195, 57637093, 2695815, 8559900568 #### [facility] (DEFAULT) [address] [place] [address] 22011 Sodium [Moles/Vol] 135.0 mmol/L Low 136.0-144 . 0 [facility] Comment on above: Performed By: #### 1 [id number], 3509577638, 9673205, 65325011, 5877200, 6899382799 #### [facility] (DEFAULT) [address] [place] [address] 28684 Urea nitrogen [Mass/Vol] 17 mg/dL Normal 8- [facility] Comment on above: Performed By: #### 1 [id number], 5978308892, 6257199, 89644599, 9819207, 8409001964 #### [facility] (DEFAULT) [address] [place] [address] Urea nitrogen/Creatinine [Mass ratio] 19.0 mg/mg High 4.6-16.2 [facility] Comment on above: Performed By: #### 1 [id number], 4549015123, 7658848, 51600380, 9959216, 7080389265 #### [facility] (DEFAULT) [address] [place] [address] Comprehensive Metabolic Pane lOrdered By: Rickey Davis on 07-14-2019 Albumin [Mass/Vol] 4.3 g/dL 3.5 - 4.6 g/dL [facility] [employer] Work Phone: ALP [Catalytic activity/Vol] 91 U/L 40 - 130 U/L [facility] [employer] Work Phone: ALT [Catalytic activity/Vol] 14 U/L 0 - 33 U/L [facility] [employer] Work Phone: Anion gap [Moles/Vol] 13 mmol/L [facility] [employer] Work Phone: AST [Catalytic activity/Vol] 14 U/L 0 - 35 U/L [facility] [employer] Phone: Bilirubin [Mass/Vol] 0.3 mg/dL 0.2 - 0 .7 mg/dL [facility] [employer] Work Phone: Calcium [Mass/Vol] 9.0 mg/dL 8.5 - 9.9 mg/dL [facility] [employer] Work Phone: Chloride [Moles/Vol] 100 mmol/L [facility] [employer] Work Phone: CO2 [Moles/Vol] 22 mmol/L [facility] Work Phone: Creatinine [Mass/Vol] 0.59 mg/dL 0.5 - 0.9 mg/dL [employer] Phone: GFR >60.0 >60 [employer] Phone: Comment on above: >60 mL/min/1.73m2 EG FR, calc. for ages 18 and older using the MDRD formula (not corrected for weight), is valid for stable renal function. GFR Non- >60.0 >60 [employer] Phone: Comment on above: >60 mL/min/1.73m2 EG FR, calc. for ages 18 and older using the MDRD formula (not corrected for weight), is valid for stable renal function. Globulin (S) [Mass/Vol] 3.3 g/dL 2.3 - 3.5 g/dL [employer] Phone: Glucose [Mass/Vol] 288 mg/dL High 70 - 99 mg/dL [employer] Phone: Interpretation and review of laboratory results Abnormal [employer] Phone: Potassium [Moles/Vol] 4.3 mmol/L [facility] [employer] Phone: Protein [Mass/Vol] 7.6 g/dL 6.3 - 8 g/dL [employer] Phone: Sodium [Moles/Vol] 135 mmol/L [employer] Phone: Urea nitrogen [Mass/Vol] 13 mg/dL 6 - 20 mg/dL [employer] Phone: ED Note - Physicianon 2019 ED [...] % Auto Lymph % 25 % Auto [place] % 7 % Auto Eos % 2.3 % Auto Baso % 0.5 % Neut Abs# 5.6 x103/mcL Lymph Abs# 2.2 x103/mcL [place] Abs# 0.6 x103/mcL Eos Abs# 0.2 x103/mcL [...] discharged. Impression and Plan Diagnosis Flank pain (FIA67-QY R10.9, Discharge, Medical) Hematuria, microscopic (IMP52-KP R31.29, Discharge, Medical) History of kidney stones (HUY93-HP Z87.442, Discharge, Medical) Hyperglycemia (ZCN07-QY R73.9, Discharge, Medical) Lactic acid blood increased (HKH54-II R79.89, Discharge, Medical) Nausea (VEH24-WJ R11.0, Discharge, Medical) Tachycardia (YED39-CA R00.0, Discharge, Medical) Plan Condition: Improved, Stable. [...] [Verified on: 07/14/2019 23:02 EST] Casper Tate [facility] ED Note-Nursingon 07-14-2019 ED Note-Nursing Pt arrives [...] time. She is currently resting on cart. Normal [facility] Extra Redon 07-14-2019 Tube Collected Yes [facility] Comment on above: Performed By: #### 1 [id number], [id number], 3289132, 31352220, 3544328, [id number] #### [facility] (DEFAULT) [address] [place] [address] Lactic Acidon 07-14-2019 Lactate [Moles/Vol] 20.7 mg/dL High 4.5-19.8 [facility] Comment on above: Performed By: #### 2 [id number] ####[facility] (DEFAULT)[address] [place] [address] Lipaseon 07-14-2019 Lipase Level 39.0 IU/L Normal 22.0-51.0 [facility] Comment on above: Performed By: #### 1 [id number], [id number], 8379995, 20223879, 6621969, 1627708841 #### [facility] (DEFAULT) [address] [place] [address] 08094 Microscopic UrinalysisOrdere d By: Rickey Davis on 07-14-2019 Bacteria, UA RARE Abnormal /HPF [employer] Work Phone: Epi Cells 6-10 [facility] Work Phone: Hyaline Casts, UA 5-10 [facility] [employer] Work Phone: Interpretation and review of laboratory results Abnormal [facility] Work Phone: RBC (U) [#/Vol] /uL [facility] Work Phone: WBC, UA 20-50 Abnormal [facility] Work Phone: UA Lbefp0ch 07-14-2019 RBC (U) [#/Vol] /uL Normal [facility] Comment on above: Order Comment: Urina lysis Microscopic order added on by [employer] system. Performed By: #### 1 [id number], [id number] #### [facility] (DEFAULT) [address] [place] [address] UA Bacteria Trace Normal [facility] Comment on above: Order Comment: Urina lysis Microscopic order added on by [employer] system. Performed By: #### 1 [id number], [id number] #### [facility] (DEFAULT) [address] [place] [address] 10838 UA Squam Epi Moderate Normal [facility] Comment on above: Order Comment: Urina lysis Microscopic order added on by [employer] system. Performed By: #### 1 [id number], [id number] #### [facility] (DEFAULT) [address] [place] [address] 02366 UA WBC 0-2 Normal [facility] Comment on above: Order Comment: Urina lysis Microscopic order added on by [employer] system. Performed By: #### 1 [id number], [id number] #### [facility] (DEFAULT) [address] [place] [address] 51172 UA w Culture if Ind Standard on 07-14-2019 Breakpoint UA Normal [facility] Comment on above: Performed By: #### 1 [id number], [id number] #### [facility] (DEFAULT) [address] [place] [address] 81221 Color (U) Yellow Normal [facility] Comment on above: Performed By: #### 1 [id number], [id number] #### [facility] (DEFAULT) [address] [place] [address] 63910 Culture? Not Indicated [facility] Comment on above: Performed By: #### 1 [id number], [id number] #### [facility] (DEFAULT) [address] [place] [address] 44700 Glucose (U) [Mass/Vol] 1000 mg/dL Normal [facility] Comment on above: Performed By: #### 1 [id number], [id number] #### [facility] (DEFAULT) [address] [place] [address] 12151 Ketones Ql (U) Negative [facility] Comment on above: Performed By: #### 1 [id number], [id number] #### [facility] (DEFAULT) [address] [place] [address] 05835 Micro? Indicated Normal [facility] Comment on above: Performed By: #### 1 [id number], [id number] #### [facility] (DEFAULT) [address] [place] [address] 68619 UA Bilirubin Negative Normal [facility] Comment on above: Performed By: #### 1 [id number], [id number] #### [facility] (DEFAULT) [address] [place] [address] 27437 UA Blood LARGE Abnormal NEGATIVE [facility] Comment on above: Performed By: #### 1 [id number], [id number] #### [facility] (DEFAULT) [address] [place] [address] 03311 UA Clarity SL CLOUDY Abnormal CLEAR [facility] Comment on above: Performed By: #### 1 [id number], [id number] #### [facility] (DEFAULT) [address] [place] [address] 04749 UA Leuk Est Negative Normal NEGATIVE [facility] Comment on above: Performed By: #### 1 [id number], [id number] #### [facility] (DEFAULT) [address] [place] [address] 30870 UA Nitrite Negative Normal NEGATIVE [facility] Comment on above: Performed By: #### 1 [id number], [id number] #### [facility] (DEFAULT) [address] [place] [address] 51720 UA pH 6.0 Normal 5-8 [facility] Comment on above: Performed By: #### 1 [id number], [id number] #### [facility] (DEFAULT) [address] [place] [address] 33180 UA Protein Negative Normal NEGATIVE [facility] Comment on above: Performed By: #### 1 [id number], [id number] #### [facility] (DEFAULT) [address] [place] [address] 97738 UA Spec Grav 1.020 Normal 1.001-1.[address] [place] [address] Comment on above: Performed By: #### 1 [id number], [id number] #### [facility] (DEFAULT) [address] [place] [address] 55820 UA Urobilinogen 0.2 mg/dL Normal 0.2-1.0 [facility] Comment on above: Performed By: #### 1 [id number], [id number] #### [facility] (DEFAULT) [address] [place] [address] 44550 Urine Source Clean Catch Normal [facility] Comment on above: Performed By: #### 1 [id number], [id number] #### [facility] (DEFAULT) [address] [place] [address] 83120 Urine Reflex to CultureOrder ed By: Rickey Davis on 07-14-2019 Bilirubin Urine Negative Negative [employer] [facility] Work Phone: Blood, Urine LARGE Abnormal Negative [facility] Work Phone: Clarity, UA CLOUDY Abnormal Clear [employer] Phone: Color, UA Yellow Straw/Mower ow [employer] Phone: Glucose, Ur >=1000 Abnormal Negative mg/dL [employer] Phone: Interpretation and review of laboratory results Abnormal [employer] Phone: Ketones Ql (U) Negative Negative mg/dL [employer] Phone: Leukocyte esterase Test strip Ql (U) MODERATE Abnormal Negative [employer] Phone: Nitrite, Urine Negative Negative [employer] Work Phone: pH, UA 5.0 [employer] Phone: Protein, UA Negative Negative mg/dL [employer] Phone: Specific Dent, UA 1.021 [employer] Phone: Urine Reflex to Culture YES [employer] Phone: Urobilinogen, Urine 0.2 <2.0 E.U./dL [employer] Phone: XR Abdomen Single View (KUB) on 07-14-2019 XR Abdomen Single View (KUB) XR ABDOMEN, 1 VIEW ([id number]) CLINICAL HISTORY: Kidney stone right? COMPARISON: No [...] [place] V 07/14/19 9:54 pm Technologist: LATASHA [facility] CBCOrdered By: Harry michael on 07-09-2019 Erythrocyte distribution width (RBC) [Ratio] 15.1 % High 11.5 - 14.5 % [employer] Phone: Hematocrit (Bld) [Volume fraction] 40.9 % 37 - 47 % [employer] Phone: Hemoglobin (Bld) [Mass/Vol] 13.9 g/dL 12 - 16 g/dL [employer] Phone: Interpretation and review of laboratory results Abnormal [employer] Phone: MCH (RBC) [Entitic mass] 27.0 pg 27 - 31.3 pg [employer] Phone: MCHC 34.0 % 33 - 37 % [employer] Phone: MCV (RBC) [Entitic vol] 79.3 fL Low 82 - 100 fL [employer] Phone: Platelets (Bld) [#/Vol] 258 10*3/uL 130 - 400 K/uL [employer] Phone: RBC (Bld) [#/Vol] 5.15 10*6/uL [employer] Phone: WBC (Bld) [#/Vol] 8.8 10*3/uL 4.8 - 10.8 K/uL [employer] Phone: CT ABDOMEN PELVIS WO CONTRAS T Additional Contrast? NoneOrdered By: Harry Marshall on 07-09-2019 1. AGAIN NOTE IS MAD E OF A LESS THAN 2 MM NONOBSTRUCTING RIGHT RENAL CALCULI. All CT scans at this facility use dose modulation, iterative reconstruction, and/or weight based dosing when appropriate to reduce radiation dose to as low as reasonably achievable. [employer] Phone: Examination: CT ABDO MEN PELVIS WO [...] adenopathy. Visualized osseous structures are grossly unremarkable. [employer] Phone: Hemant, [facility] Incoming Radiant Results From [employer] - 07/09/2019 8:08 PM EST Examination: CT [...] dose to as low as reasonably achievable. [employer] Work Phone: Comprehensive Metabolic Pane lOrdered By: Harry Marshall on 07-09-2019 Albumin [Mass/Vol] 4.4 g/dL 3.5 - 4.6 g/dL [facility] Phone: ALP [Catalytic activity/Vol] 96 U/L 40 - 130 U/L [facility] [employer] Phone: ALT [Catalytic activity/Vol] 12 U/L 0 - 33 U/L [facility] [employer] Phone: Anion gap [Moles/Vol] 16 mmol/L High [facility] [employer] Work Phone: AST [Catalytic activity/Vol] 14 U/L 0 - 35 U/L [facility] [employer] Phone: Bilirubin [Mass/Vol] 0.3 mg/dL 0.2 - 0 .7 mg/dL [facility] [employer] Work Phone: Calcium [Mass/Vol] 10.3 mg/dL High 8.5 - 9.9 mg/dL [facility] [employer] Work Phone: Chloride [Moles/Vol] 97 mmol/L [facility] [employer] Work Phone: CO2 [Moles/Vol] 24 mmol/L [facility] Work Phone: Creatinine [Mass/Vol] 0.54 mg/dL 0.5 - 0.9 mg/dL [facility] Phone: GFR >60.0 >60 [facility] [employer] Work Phone: Comment on above: >60 mL/min/1.73m2 EG FR, calc. for ages 18 and older using the MDRD formula (not corrected for weight), is valid for stable renal function. GFR Non- >60.0 >60 [employer] Work Phone: Comment on above: >60 mL/min/1.73m2 EG FR, calc. for ages 18 and older using the MDRD formula (not corrected for weight), is valid for stable renal function. Globulin (S) [Mass/Vol] 3.8 g/dL High 2.3 - 3.5 g/dL [facility] Phone: Glucose [Mass/Vol] 242 mg/dL High 70 - 99 mg/dL [facility] Phone: Interpretation and review of laboratory results Abnormal [employer] Phone: Potassium [Moles/Vol] 3.8 mmol/L [facility] [employer] Work Phone: Protein [Mass/Vol] 8.2 g/dL High 6.3 - 8 g/dL [facility] Phone: Sodium [Moles/Vol] 137 mmol/L [facility] Phone: Urea nitrogen [Mass/Vol] 11 mg/dL 6 - 20 mg/dL [facility] Phone: UrinalysisOrdered By: Roberto Marshall on 07-09-2019 Bilirubin Urine Negative Negative [facility] Work Phone: Blood, Urine LARGE Abnormal Negative [facility] Work Phone: Clarity, UA CLOUDY Abnormal Clear [facility] Work Phone: Color, UA ORANGE Abnormal Straw[employer]Mower ow [employer] Work Phone: Glucose, Ur >=1000 Abnormal Negative mg/dL [facility] Phone: Interpretation and review of laboratory results Abnormal [employer] Phone: Ketones Ql (U) Negative Negative mg/dL [employer] Work Phone: Leukocyte esterase Test strip Ql (U) MODERATE Abnormal Negative [facility] Work Phone: Nitrite, Urine Negative Negative [facility] Work Phone: pH, UA 6.5 [facility] [employer] Phone: Protein, UA Negative Negative mg/dL [facility] Work Phone: Specific Dent, UA 1.031 [facility] [employer] Phone: Urobilinogen, Urine 0.2 <2.0 E.U./dL [facility] [employer] Phone: Amylaseon 04-26-2019 Amylase [Catalytic activity/Vol] 74 U/L 22 - 93 U/L [place], [place] CBC Auto Differentialon 03-30 Basophils (Bld) [#/Vol] 0.1 10*3/uL 0 - 0.2 K/uL [place] Basophils/100 WBC (Bld) 0.7 % [place] Eosinophils (Bld) [#/Vol] 0.1 10*3/uL 0 - 0.7 K/uL [place] Eosinophils/100 WBC (Bld) 0.7 % [place] Erythrocyte distribution width (RBC) [Ratio] 14.8 % High 11.5 - 14.5 % [place] Hematocrit (Bld) [Volume fraction] 42.4 % 37 - 47 % [place] Hemoglobin (Bld) [Mass/Vol] 14.1 g/dL 12 - 16 g/dL [place] Interpretation and review of laboratory results Abnormal [place], [place] Lymphocytes (Bld) [#/Vol] 1.6 10*3/uL 1 - 4.8 K/uL [place], [place] Lymphocytes/100 WBC (Bld) 17.3 % [place] MCH (RBC) [Entitic mass] 27.0 pg 27 - 31.3 pg [place] MCHC (RBC) [Mass/Vol] 33.2 % 33 - 37 % [place] MCV (RBC) [Entitic vol] 81.4 fL Low 82 - 100 fL [place], [place] Monocytes (Bld) [#/Vol] 0.5 10*3/uL 0.2 - 0.8 K/uL [place], [place] Monocytes/100 WBC (Bld) 5.7 % [place] Neutrophils Absolute 6.9 K/uL High 1.4 - 6 .5 K/uL [place] Neutrophils/100 WBC (Bld) 75.6 % [place] Platelets (Bld) [#/Vol] 328 10*3/uL 130 - 400 K/uL [place] RBC (Bld) [#/Vol] 5.21 10*6/uL [place] WBC (Bld) [#/Vol] 9.2 10*3/uL 4.8 - 10.8 K/uL [place] Lactic Acid, Plasmaon 2018 Lactate [Moles/Vol] 1.9 mmol/L 0.5 - 2. 2 mmol/L [place], [place] Lipaseon 04-26-2019 Lipase [Catalytic activity/Vol] 18 U/L 12 - 95 U/L [place] Microscopic Urinalysison Bacteria, UA Few /HPF [place], [place] Crystals LM Nom (Urine sed) 2+ Ca. Oxalate [place], [place] Epi Cells 20-50 /HPF [place] RBC (U) [#/Vol] 0-2 [place] WBC, UA 3-5 [place] Urinalysison 04-26-2019 Bilirubin Urine MODERATE Abnormal Negative [place] Blood, Urine SMALL Abnormal Negative [place], [place] Clarity, UA CLOUDY Abnormal Clear [place] Color, UA DARK YELLOW Abnormal Straw/Mower ow [place], [place] Glucose, Ur 500 mg/dL Abnormal Negative [place] Interpretation and review of laboratory results Abnormal [place] Ketones Ql (U) 15 mg/dL Abnormal Negative [place], [place] Leukocyte esterase Test strip Ql (U) SMALL Abnormal Negative [place], [place] Nitrite, Urine Positive Abnormal Negative [place], [place] pH, UA 5.0 [place] Protein (U) [Mass/Vol] 30 mg/dL Abnormal Negative [place], [place] Specific Dent, UA 1.039 [place], [place] Urobilinogen, Urine 1.0 <2.0 E.U./dL [place], [place] POCT Glucoseon 04-22-2019 Glucose [Mass/Vol] 259 mg/dL High 60 - 115 mg/dl [place], [place] Interpretation and review of laboratory results Abnormal [place] Performed on [facility]U-CHEK [place], [place] CBC Auto Differentialon 03-30 Basophils (Bld) [#/Vol] 0.0 10*3/uL 0 - 0.2 K/uL [place], [place] Basophils/100 WBC (Bld) 0.8 % [place] Eosinophils (Bld) [#/Vol] 0.2 10*3/uL 0 - 0.7 K/uL [place] Eosinophils/100 WBC (Bld) 3.2 % [place] Erythrocyte distribution width (RBC) [Ratio] 15.0 % High 11.5 - 14.5 % [place] Hematocrit (Bld) [Volume fraction] 37.1 % 37 - 47 % [place] Hemoglobin (Bld) [Mass/Vol] 12.3 g/dL 12 - 16 g/dL [place] Lymphocytes (Bld) [#/Vol] 1.3 10*3/uL 1 - 4.8 K/uL [place] Lymphocytes/100 WBC (Bld) 25.6 % [place] MCH (RBC) [Entitic mass] 26.9 pg Low 27 - 31.3 pg [place] MCHC (RBC) [Mass/Vol] 33.3 % 33 - 37 % [place] MCV (RBC) [Entitic vol] 81.0 fL Low 82 - 100 fL [place], [place] Monocytes (Bld) [#/Vol] 0.5 10*3/uL 0.2 - 0.8 K/uL [place], [place] Monocytes/100 WBC (Bld) 8.6 % [place] Neutrophils Absolute 3.2 K/uL 1.4 - 6 .5 K/uL [place] Neutrophils/100 WBC (Bld) 61.8 % [place] Platelets (Bld) [#/Vol] 235 10*3/uL 130 - 400 K/uL [place] RBC (Bld) [#/Vol] 4.58 10*6/uL [place] WBC (Bld) [#/Vol] 5.2 10*3/uL 4.8 - 10.8 K/uL [place] Redraw [place] CT ABDOMEN PELVIS W WO CONTR AST Additional Contrast? Radiologist Recommendationon 04-21-2019 Hemant, Chpo Incoming Radiant Results From [employer] - 04/21/2019 4:40 PM EDT Patient : [...] and lingula. 3. Previous hysterectomy. Previous cholecyst[place]. [place] 1. Nonobstructing ri ght renal calculus measuring 0.35 cm. No enhancing mass, malignancy or CT evidence of pyelonephritis. 2. Bilateral ovarian vein calcifications. Scarring/linear atelectasis left lower lobe and lingula. 3. Previous hysterectomy. Previous cholecystectomy. [place], [place] Patient 5 : 1975 Age: 43 [...] vein or splenic vein thrombus or occlusion. [place] Comprehensive Metabolic Pane loco 04-21-2019 Albumin [Mass/Vol] 3.8 g/dL 3.5 - 4.6 g/dL [place] ALP [Catalytic activity/Vol] 72 U/L 40 - 130 U/L [place] ALT [Catalytic activity/Vol] 21 U/L 0 - 33 U/L [place], [place] Anion gap [Moles/Vol] 14 mmol/L [place] AST [Catalytic activity/Vol] 26 U/L 0 - 35 U/L [place], [place] Comment on above: Specimen hemolysis h as exceeded the interference as defined by Mariah. Value may be falsely increased. Suggest recollection if clinically indicated. Bilirubin Ql (U) 0.3 mg/dL 0.2 - 0.7 mg/dL [place] Calcium [Mass/Vol] 8.6 mg/dL 8.5 - 9.9 mg/dL [place] Chloride [Moles/Vol] 100 mmol/L [place], [place] CO2 [Moles/Vol] 19 mmol/L Low [facility] [place] Creatinine [Mass/Vol] 0.5 mg/dL 0.5 - 0.9 mg/dL [place] GFR >60.0 >60 [place], [place] Comment on above: >60 mL/min/1.73m2 EG FR, calc. for ages 18 and older using the MDRD formula (not corrected for weight), is valid for stable renal function. GFR Non- >60.0 >60 [place], [place] Comment on above: >60 mL/min/1.73m2 EG FR, calc. for ages 18 and older using the MDRD formula (not corrected for weight), is valid for stable renal function. Globulin (S) [Mass/Vol] 3.1 g/dL 2.3 - 3.5 g/dL [place], [place] Glucose [Mass/Vol] 316 mg/dL High 70 - 99 mg/dL [place], [place] Interpretation and review of laboratory results Abnormal [place] Potassium [Moles/Vol] 4.6 mmol/L [place] Protein [Mass/Vol] 6.9 g/dL 6.3 - 8 g/dL [place] Sodium [Moles/Vol] 133 mmol/L Low [place], [place] Urea nitrogen [Mass/Vol] 8 mg/dL 6 - 20 mg/dL [place], [place] Otheron 04-21-2019 Interpretation and review of laboratory results Abnormal [place] POCT Glucoseon 04-21-2019 Glucose [Mass/Vol] 301 mg/dL High 60 - 115 mg/dl [place] Interpretation and review of laboratory results Abnormal [place] Performed on ACCU-CHEK [place], [place] Glucose [Mass/Vol] 240 mg/dL High 60 - 115 mg/dl [place] Interpretation and review of laboratory results Abnormal [place] Performed on ACCU-CHEK [place], [place] Glucose [Mass/Vol] 283 mg/dL High 60 - 115 mg/dl [place] Glucose [Mass/Vol] 334 mg/dL High 60 - 115 mg/dl [place] Interpretation and review of laboratory results Abnormal [place] SPECIMEN REJECTIONon 019 Reason for Rejection see below [place], [place] Comment on above: Unable to perform te sting; specimen clotted. To perform testing the specimen will need to be recollected. Clotted Rejected Test [facility] [place] URINE CULTUREon 04-21-2019 Bacteria identified Cx Nom (U) No growth 24 hours [place], [place] OR DERED BY: CRISTI MCDANIELS SOURCE: Urine Clean Catch COLLECTED: 04/19/19 23:00 ANTIBIOTICS AT [facility].: RECEIVED : 04/20/19 08:15 [place] Microscopic Urinalysison Bacteria, UA Negative /HPF [place], [place] Epi Cells 3-5 [place] Hyaline Casts, UA 1-3 [place], [place] Interpretation and review of laboratory results Abnormal [place] RBC (U) [#/Vol] /uL [place] WBC, UA 0-2 [place], [place] POCT Glucoseon 04-20-2019 Glucose [Mass/Vol] 284 mg/dL High 60 - 115 mg/dl [place] Interpretation and review of laboratory results Abnormal [place] Glucose [Mass/Vol] 258 mg/dL High 60 - 115 mg/dl [place] Interpretation and review of laboratory results Abnormal [place] Glucose [Mass/Vol] 233 mg/dL High 60 - 115 mg/dl [place] Interpretation and review of laboratory results Abnormal [place] Glucose [Mass/Vol] 238 mg/dL High 60 - 115 mg/dl [place] Interpretation and review of laboratory results Abnormal [place] Urinalysison 04-20-2019 Bilirubin Urine Negative Negative [place] Blood, Urine LARGE Abnormal Negative [place], [place] Clarity, UA Clear Clear [place] Color, UA Yellow Straw/Mower ow [place] Glucose, Ur >=1000 Abnormal Negative mg/dL [place] Interpretation and review of laboratory results Abnormal [place] Ketones Ql (U) Negative Negative mg/dL [place] Leukocyte esterase Test strip Ql (U) Negative Negative [place], [place] Nitrite, Urine Negative Negative [place], [place] pH, UA 5.5 [place] Protein (U) [Mass/Vol] Negative Negat isabella mg/dL [place], [place] Specific Dent, UA 1.033 [place], [place] Urobilinogen, Urine 0.2 <2.0 E.U./dL [place], [place] POCT Glucoseon 04-19-2019 Glucose [Mass/Vol] 292 mg/dL High 60 - 115 mg/dl [place] Interpretation and review of laboratory results Abnormal [place] Performed on [facility] Glucose [Mass/Vol] 238 mg/dL High 60 - 115 mg/dl [place] Interpretation and review of laboratory results Abnormal [place] Performed on [facility] Glucose [Mass/Vol] 234 mg/dL High 60 - 115 mg/dl [place] Interpretation and review of laboratory results Abnormal [place] Performed on [facility] Glucose [Mass/Vol] 203 mg/dL High 60 - 115 mg/dl [place] Interpretation and review of laboratory results Abnormal [place] Performed on [facility] Urine Cultureon 04-19-2019 Bacteria identified Cx Nom (U) <50,000 CFU/ml of mixed lucia Multiple organisms isolated, no predominance. Culture indicates probable contamination. Please review colony count and clinical indications to determine if a repeat culture is necessary. No further workup to be done. [place] OR DERED BY: JANETH EDOUARD SOURCE: Urine Clean Catch COLLECTED: 04/17/19 21:00 ANTIBIOTICS AT [facility].: RECEIVED : 04/17/19 22:24 [place] CBC auto differentialon 03-30 Basophils (Bld) [#/Vol] 0.0 10*3/uL 0 - 0.2 K/uL [place], [place] Basophils/100 WBC (Bld) 0.5 % [place] Eosinophils (Bld) [#/Vol] 0.2 10*3/uL 0 - 0.7 K/uL [place], [place] Eosinophils/100 WBC (Bld) 2.8 % [place] Erythrocyte distribution width (RBC) [Ratio] 15.4 % High 11.5 - 14.5 % [place] Hematocrit (Bld) [Volume fraction] 39.3 % 37 - 47 % [place] Hemoglobin (Bld) [Mass/Vol] 12.2 g/dL 12 - 16 g/dL [place], [place] Interpretation and review of laboratory results Abnormal [place] Lymphocytes (Bld) [#/Vol] 2.7 10*3/uL 1 - 4.8 K/uL [place], [place] Lymphocytes/100 WBC (Bld) 38.1 % [place] MCH (RBC) [Entitic mass] 26.8 pg Low 27 - 31.3 pg [place] MCHC (RBC) [Mass/Vol] 30.9 % Low 33 - 37 % [place] MCV (RBC) [Entitic vol] 86.8 fL 82 - 100 fL [place], [place] Monocytes (Bld) [#/Vol] 0.6 10*3/uL 0.2 - 0.8 K/uL [place], [place] Monocytes/100 WBC (Bld) 8.3 % [place] Neutrophils Absolute 3.5 K/uL 1.4 - 6 .5 K/uL [place], [place] Neutrophils/100 WBC (Bld) 50.3 % [place] Platelets (Bld) [#/Vol] 253 10*3/uL 130 - 400 K/uL [place] RBC (Bld) [#/Vol] 4.53 10*6/uL [place] WBC (Bld) [#/Vol] 7.1 10*3/uL 4.8 - 10.8 K/uL [place] ABDOMEN PELVIS WO CONTRAS T [...] is unremarkable. The lung bases are unremarkable. [place], [place] Hemant, Chpo Incoming Radiant Results From [employer] - 04/18/2019 10:42 AM EDT EXAMINATION: CT [...] dose to as low as reasonably achievable. [place] NO ACUTE PROCESS COM PARED TO 2018. All CT scans at this facility use dose modulation, iterative reconstruction, and/or weight based dosing when appropriate to reduce radiation dose to as low as reasonably achievable. [place] Comprehensive Metabolic Pane l w/ Reflex to MGon 04-18-2019 Albumin [Mass/Vol] 3.9 g/dL 3.5 - 4.6 g/dL [place] ALP [Catalytic activity/Vol] 66 U/L 40 - 130 U/L [place] ALT [Catalytic activity/Vol] 17 U/L 0 - 33 U/L [place] Anion gap [Moles/Vol] 14 mmol/L [place] AST [Catalytic activity/Vol] 23 U/L 0 - 35 U/L [place] Bilirubin Ql (U) 0.4 mg/dL 0.2 - 0.7 mg/dL [place] Calcium [Mass/Vol] 8.7 mg/dL 8.5 - 9.9 mg/dL [place] Chloride [Moles/Vol] 103 mmol/L [place] CO2 [Moles/Vol] 22 [facility] [place] [place] Creatinine [Mass/Vol] 0.57 mg/dL 0.5 - 0.9 mg/dL [place] GFR >60.0 >60 [place], [place] Comment on above: >60 mL/min/1.73m2 EG FR, calc. for ages 18 and older using the MDRD formula (not corrected for weight), is valid for stable renal function. GFR Non- >60.0 >60 [place] Comment on above: >60 mL/min/1.73m2 EG FR, calc. for ages 18 and older using the MDRD formula (not corrected for weight), is valid for stable renal function. Globulin (S) [Mass/Vol] 3 g/dL 2.3 - 3.5 g/dL [place], [place] Glucose [Mass/Vol] 204 mg/dL High 70 - 99 mg/dL [place] Interpretation and review of laboratory results Abnormal [place] Potassium [Moles/Vol] 3.8 mmol/L [place] Protein [Mass/Vol] 6.9 g/dL 6.3 - 8 g/dL [place] Sodium [Moles/Vol] 139 mmol/L [place], [place] Urea nitrogen [Mass/Vol] 20 mg/dL 6 - 20 mg/dL [place] Hemoglobin A1Con 04-18-2019 HbA1c (Bld) [Mass fraction] 9.7 % High 4.8 - 5.9 % [place] Interpretation and review of laboratory results Abnormal [place] Lactic Acid, Plasmaon 2018 Lactate [Moles/Vol] 1.2 mmol/L 0.5 - 2. 2 mmol/L [place] Magnesiumon 04-18-2019 Magnesium [Mass/Vol] 1.8 mg/dL 1.7 - 2 .4 mg/dL [place], [place] POCT Glucoseon 04-18-2019 Glucose [Mass/Vol] 268 mg/dL High 60 - 115 mg/dl [place] Interpretation and review of laboratory results Abnormal [place] Performed on ACCU-CHEK [place], [place] Glucose [Mass/Vol] 262 mg/dL High 60 - 115 mg/dl [place] Interpretation and review of laboratory results Abnormal [place] Performed on ACCU-CHEK [place], [place] Glucose [Mass/Vol] 180 mg/dL High 60 - 115 mg/dl [place] Interpretation and review of laboratory results Abnormal [place] Performed on ACC[facility]-CHEK [place], [place] Glucose [Mass/Vol] 144 mg/dL High 60 - 115 mg/dl [place] Interpretation and review of laboratory results Abnormal [place] Performed on [employer]CHEK [place] SPECIMEN REJECTIONon 019 HbA1c (Bld) [Mass fraction] A1C [place], [place] Reason for Rejection see below [place], [place] Comment on above: Unable to perform te sting; specimen quantity not sufficient. To perform testing the specimen will need to be recollected. QNS ORDER WAS CANCELLED 04/18/2019 12:05, Rejected: Quantity not sufficient. [place], [place] Basic Metabolic Panelon 03-30 Anion gap [Moles/Vol] 17 mmol/L High [place] Calcium [Mass/Vol] 10.6 mg/dL High 8.5 - 9.9 mg/dL [place] Chloride [Moles/Vol] 100 mmol/L [place] CO2 [Moles/Vol] 22 [facility] [place] [place] Creatinine [Mass/Vol] 0.69 mg/dL 0.5 - 0.9 mg/dL [place], [place] GFR >60.0 >60 [place], [place] Comment on above: >60 mL/min/1.73m2 EG FR, calc. for ages 18 and older using the MDRD formula (not corrected for weight), is valid for stable renal function. GFR Non- >60.0 >60 [place], [place] Comment on above: >60 mL/min/1.73m2 EG FR, calc. for ages 18 and older using the MDRD formula (not corrected for weight), is valid for stable renal function. Glucose [Mass/Vol] 226 mg/dL High 70 - 99 mg/dL [place], [place] Potassium [Moles/Vol] 3.9 mmol/L [place] Sodium [Moles/Vol] 139 mmol/L [place], [place] Urea nitrogen [Mass/Vol] 20 mg/dL 6 - 20 mg/dL [place], [place] CBC Auto Differentialon 10- Basophils (Bld) [#/Vol] 0.1 10*3/uL 0 - 0.2 K/uL [place], [place] Basophils/100 WBC (Bld) 1.1 % [place] Eosinophils (Bld) [#/Vol] 0.1 10*3/uL 0 - 0.7 K/uL [place], [place] Eosinophils/100 WBC (Bld) 1 % [place] Erythrocyte distribution width (RBC) [Ratio] 14.9 % High 11.5 - 14.5 % [place] Hematocrit (Bld) [Volume fraction] 40.6 % 37 - 47 % [place] Hemoglobin (Bld) [Mass/Vol] 13.7 g/dL 12 - 16 g/dL [place] Interpretation and review of laboratory results Abnormal [place] Lymphocytes (Bld) [#/Vol] 2.7 10*3/uL 1 - 4.8 K/uL [place], [place] Lymphocytes/100 WBC (Bld) 24.8 % [place] MCH (RBC) [Entitic mass] 26.9 pg Low 27 - 31.3 pg [place], [place] MCHC (RBC) [Mass/Vol] 33.7 % 33 - 37 % [place] MCV (RBC) [Entitic vol] 79.8 fL Low 82 - 100 fL [place], [place] Monocytes (Bld) [#/Vol] 0.8 10*3/uL 0.2 - 0.8 K/uL [place], [place] Monocytes/100 WBC (Bld) 7.0 % [place] Neutrophils Absolute 7.1 K/uL High 1.4 - 6 .5 K/uL [place], [place] Neutrophils/100 WBC (Bld) 66.1 % [place] Platelets (Bld) [#/Vol] 312 10*3/uL 130 - 400 K/uL [place] RBC (Bld) [#/Vol] 5.09 10*6/uL [place] WBC (Bld) [#/Vol] 10.8 10*3/uL 4.8 - 10.8 K/uL [place], [place] Hepatic Function Panelon Albumin [Mass/Vol] 4.8 g/dL High 3.5 - 4.6 g/dL [place], [place] ALP [Catalytic activity/Vol] 77 U/L 40 - 130 U/L [place], [place] ALT [Catalytic activity/Vol] 21 U/L 0 - 33 U/L [place] AST [Catalytic activity/Vol] 22 U/L 0 - 35 U/L [place] Bilirubin Ql (U) 0.3 mg/dL 0.2 - 0.7 mg/dL [place], [place] Bilirubin, Indirect see below 0 - 0.6 mg/dL [place], [place] Comment on above: Indirect Bilirubin c annot be calculated since Total Bilirubin and/or Direct Bilirubin is below measurable range. Bilirubin.direct [Mass/Vol] mg/dL 0 - 0.4 mg/dL [place], [place] Comment on above: Specimen hemolysis h as exceeded the interference as defined by Mariah. Value may be falsely increased. Suggest recollection if clinically indicated. Protein [Mass/Vol] 8.5 g/dL High 6.3 - 8 g/dL [place], [place] Lactic Acid, Plasmaon 2018 Interpretation and review of laboratory results Abnormal [place] Lactate [Moles/Vol] 2.5 mmol/L High 0.5 - 2. 2 mmol/L [place], [place] Lipaseon 04-17-2019 Lipase [Catalytic activity/Vol] 30 U/L 12 - 95 U/L [place] Microscopic Urinalysison Bacteria, UA FEW Abnormal /HPF [place], [place] Crystals LM Nom (Urine sed) 1+ Ca. Oxalate [place], [place] Epi Cells >100 High [place] Hyaline Casts, UA 04-17 [facility] [place] Interpretation and review of laboratory results Abnormal [place], [place] RBC (U) [#/Vol] /uL Abnormal [place] WBC, UA 50-100 Abnormal [place], [place] Otheron 04-17-2019 Interpretation and review of laboratory results Abnormal [place] Urine Reflex to Cultureon Bilirubin Urine Negative Negative [place] Blood, Urine LARGE Abnormal Negative [place], [place] Clarity, UA TURBID Abnormal Clear [place] Color, UA Yellow Straw/Mower ow [place], [place] Glucose, Ur >=1000 Abnormal Negative mg/dL [place], [place] Interpretation and review of laboratory results Abnormal [place] Ketones Ql (U) TRACE Abnormal Negative mg/dL [place], [place] Leukocyte esterase Test strip Ql (U) SMALL Abnormal Negative [place], [place] Nitrite, Urine Negative Negative [place], [place] pH, UA 5.5 [place], [place] Protein (U) [Mass/Vol] TRACE Abnormal Negat isabella mg/dL [place], [place] Specific Dent, UA 1.040 [place], [place] Urine Reflex to Culture YES [place] Urobilinogen, Urine 0.2 <2.0 E.U./dL [place], [place] CBC Auto Differentialon 03-29 Basophils (Bld) [#/Vol] 0.1 10*3/uL 0 - 0.2 K/uL [place], [place] Basophils/100 WBC (Bld) 0.8 % [place] Eosinophils (Bld) [#/Vol] 0.2 10*3/uL 0 - 0.7 K/uL [place], [place] Eosinophils/100 WBC (Bld) 2.4 % [place] Erythrocyte distribution width (RBC) [Ratio] 15.2 % High 11.5 - 14.5 % [place] Hematocrit (Bld) [Volume fraction] 41.3 % 37 - 47 % [place] Hemoglobin (Bld) [Mass/Vol] 13.7 g/dL 12 - 16 g/dL [place], [place] Interpretation and review of laboratory results Abnormal [place] Lymphocytes (Bld) [#/Vol] 2.4 10*3/uL 1 - 4.8 K/uL [place], [place] Lymphocytes/100 WBC (Bld) 31.7 % [place] MCH (RBC) [Entitic mass] 26.5 pg Low 27 - 31.3 pg [place], [place] MCHC (RBC) [Mass/Vol] 33.2 % 33 - 37 % [place] MCV (RBC) [Entitic vol] 79.7 fL Low 82 - 100 fL [place], [place] Monocytes (Bld) [#/Vol] 0.5 10*3/uL 0.2 - 0.8 K/uL [place], [place] Monocytes/100 WBC (Bld) 6.7 % [place] Neutrophils Absolute 4.3 K/uL 1.4 - 6 .5 K/uL [place], [place] Neutrophils/100 WBC (Bld) 58.4 % [place] Platelets (Bld) [#/Vol] 315 10*3/uL 130 - 400 K/uL [place], [place] RBC (Bld) [#/Vol] 5.18 10*6/uL [place] WBC (Bld) [#/Vol] 7.4 10*3/uL 4.8 - 10.8 K/uL [place], [place] Comprehensive Metabolic Pane loco 04-10-2019 Albumin [Mass/Vol] 4.7 g/dL High 3.5 - 4.6 g/dL [place], [place] ALP [Catalytic activity/Vol] 75 U/L 40 - 130 U/L [place], [place] ALT [Catalytic activity/Vol] 21 U/L 0 - 33 U/L [place], [place] Anion gap [Moles/Vol] 15 mmol/L [place] AST [Catalytic activity/Vol] 21 U/L 0 - 35 U/L [place] Bilirubin Ql (U) 0.5 mg/dL 0.2 - 0.7 mg/dL [place], [place] Calcium [Mass/Vol] 9.8 mg/dL 8.5 - 9.9 mg/dL [place] Chloride [Moles/Vol] 98 mmol/L [place], [place] CO2 [Moles/Vol] 24 mmol/L [place], [place] Creatinine [Mass/Vol] 0.54 mg/dL 0.5 - 0.9 mg/dL [place] GFR >60.0 >60 [place], [place] Comment on above: >60 mL/min/1.73m2 EG FR, calc. for ages 18 and older using the MDRD formula (not corrected for weight), is valid for stable renal function. GFR Non- >60.0 >60 [place], [place] Comment on above: >60 mL/min/1.73m2 EG FR, calc. for ages 18 and older using the MDRD formula (not corrected for weight), is valid for stable renal function. Globulin (S) [Mass/Vol] 3.8 g/dL High 2.3 - 3.5 g/dL [place], [place] Glucose [Mass/Vol] 248 mg/dL High 70 - 99 mg/dL [place], [place] Interpretation and review of laboratory results Abnormal [place] Potassium [Moles/Vol] 4.1 mmol/L [place] Protein [Mass/Vol] 8.5 g/dL High 6.3 - 8 g/dL [place], [place] Sodium [Moles/Vol] 137 mmol/L [place], [place] Urea nitrogen [Mass/Vol] 14 mg/dL 6 - 20 mg/dL [place] Microscopic Urinalysison Bacteria, UA MODERATE Abnormal /HPF [place], [place] Epi Cells 20-50 [place], [place] Hyaline Casts, UA 3-5 [place], [place] Interpretation and review of laboratory results Abnormal [place], [place] RBC (U) [#/Vol] /uL [place] WBC, UA 20-50 Abnormal [place], [place] Urine Reflex to Cultureon Bilirubin Urine Negative Negative [place] Blood, Urine LARGE Abnormal Negative [place], [place] Clarity, UA CLOUDY Abnormal Clear [place] Color, UA Yellow Straw/Mower ow [place], [place] Glucose, Ur >=1000 Abnormal Negative mg/dL [place], [place] Interpretation and review of laboratory results Abnormal [place] Ketones Ql (U) Negative Negative mg/dL [place] Leukocyte esterase Test strip Ql (U) MODERATE Abnormal Negative [place], [place] Nitrite, Urine Negative Negative [place], [place] pH, UA 5.0 [place], [place] Protein (U) [Mass/Vol] Negative Negat isabella mg/dL [place], [place] Specific Dent, UA 1.026 [place], [place] Urine Reflex to Culture YES [place] Urobilinogen, Urine 0.2 <2.0 E.U./dL [place], [place] CBC Auto Differentialon Basophils (Bld) [#/Vol] 0.1 10*3/uL 0 - 0.2 K/uL [place], [place] Basophils/100 WBC (Bld) 1.2 % [place] Eosinophils (Bld) [#/Vol] 0.2 10*3/uL 0 - 0.7 K/uL [place], [place] Eosinophils/100 WBC (Bld) 2 % [place] Erythrocyte distribution width (RBC) [Ratio] 15.5 % High 11.5 - 14.5 % [place] Hematocrit (Bld) [Volume fraction] 38.4 % 37 - 47 % [place] Hemoglobin (Bld) [Mass/Vol] 12.6 g/dL 12 - 16 g/dL [place], [place] Interpretation and review of laboratory results Abnormal [place] Lymphocytes (Bld) [#/Vol] 2.5 10*3/uL 1 - 4.8 K/uL [place], [place] Lymphocytes/100 WBC (Bld) 31.9 % [place] MCH (RBC) [Entitic mass] 26.4 pg Low 27 - 31.3 pg [place] MCHC (RBC) [Mass/Vol] 32.8 % Low 33 - 37 % [place] MCV (RBC) [Entitic vol] 80.4 fL Low 82 - 100 fL [place], [place] Monocytes (Bld) [#/Vol] 0.7 10*3/uL 0.2 - 0.8 K/uL [place], [place] Monocytes/100 WBC (Bld) 8.7 % [place] Neutrophils Absolute 4.4 K/uL 1.4 - 6 .5 K/uL [place] Neutrophils/100 WBC (Bld) 56.2 % [place] Platelets (Bld) [#/Vol] 275 10*3/uL 130 - 400 K/uL [place] RBC (Bld) [#/Vol] 4.78 10*6/uL [place] WBC (Bld) [#/Vol] 7.8 10*3/uL 4.8 - 10.8 K/uL [place], [place] Comprehensive Metabolic Pane loco 04-05-2019 Albumin [Mass/Vol] 4.3 g/dL 3.5 - 4.6 g/dL [place] ALP [Catalytic activity/Vol] 66 U/L 40 - 130 U/L [place] ALT [Catalytic activity/Vol] 28 U/L 0 - 33 U/L [place] Comment on above: Specimen hemolysis h as exceeded the interference as defined by Mariah. Result may be affected. Suggest recollection if clinically indicated. Anion gap [Moles/Vol] 14 mmol/L [place] AST [Catalytic activity/Vol] 42 U/L High 0 - 35 U/L [place] Comment on above: Specimen hemolysis h as exceeded the interference as defined by Mariah. Value may be falsely increased. Suggest recollection if clinically indicated. Bilirubin Ql (U) 0.3 mg/dL 0.2 - 0.7 mg/dL [place] Calcium [Mass/Vol] 9.4 mg/dL 8.5 - 9.9 mg/dL [place], [place] Chloride [Moles/Vol] 102 mmol/L [place], [place] CO2 [Moles/Vol] 22 mmol/L [place] Creatinine [Mass/Vol] 0.49 mg/dL Low 0.5 - 0.9 mg/dL [place] GFR >60.0 >60 [place] Comment on above: >60 mL/min/1.73m2 EG FR, calc. for ages 18 and older using the MDRD formula (not corrected for weight), is valid for stable renal function. GFR Non- >60.0 >60 [place] Comment on above: >60 mL/min/1.73m2 EG FR, calc. for ages 18 and older using the MDRD formula (not corrected for weight), is valid for stable renal function. Globulin (S) [Mass/Vol] 3.7 g/dL High 2.3 - 3.5 g/dL [place], [place] Glucose [Mass/Vol] 247 mg/dL High 70 - 99 mg/dL [place] Interpretation and review of laboratory results Abnormal [place] Potassium [Moles/Vol] 4.7 mmol/L [place] Comment on above: Specimen hemolysis h as exceeded the interference as defined by Mariah. Value may be falsely increased. Suggest recollection if clinically indicated. Protein [Mass/Vol] 8.0 g/dL 6.3 - 8 g/dL [place] Sodium [Moles/Vol] 138 mmol/L [place] Urea nitrogen [Mass/Vol] 9 mg/dL 6 - 20 mg/dL [place] Microscopic Urinalysison Bacteria, UA Negative /HPF [place], [place] Epi Cells 6-10 [place] Hyaline Casts, UA 0-1 [facility] [place] Interpretation and review of laboratory results Abnormal [place] RBC (U) [#/Vol] /uL [place] WBC, UA 0-2 [place] Urine Reflex to Cultureon Bilirubin Urine Negative Negative [place] Blood, Urine MODERATE Abnormal Negative [place], [place] Clarity, UA Clear Clear [place] Color, UA Yellow Straw/Mower ow [place] Glucose, Ur >=1000 Abnormal Negative mg/dL [place] Interpretation and review of laboratory results Abnormal [place] Ketones Ql (U) Negative Negative mg/dL [place] Leukocyte esterase Test strip Ql (U) Negative Negative [place] Nitrite, Urine Negative Negative [place] pH, UA 6.0 [place] Protein (U) [Mass/Vol] Negative Negat isabella mg/dL [place] Specific Dent, UA 1.021 [place], [place] Urine Reflex to Culture YES [place] Urobilinogen, Urine 0.2 <2.0 E.U./dL [place] CBC Auto Differentialon Basophils (Bld) [#/Vol] 0.1 10*3/uL 0 - 0.2 K/uL [place] Basophils/100 WBC (Bld) 0.9 % [place] Eosinophils (Bld) [#/Vol] 0.3 10*3/uL 0 - 0.7 K/uL [place] Eosinophils/100 WBC (Bld) 2.7 % [place] Erythrocyte distribution width (RBC) [Ratio] 17.1 % High 11.5 - 14.5 % [place] Hematocrit (Bld) [Volume fraction] 39.3 % 37 - 47 % [place] Hemoglobin (Bld) [Mass/Vol] 12.7 g/dL 12 - 16 g/dL [place] Lymphocytes (Bld) [#/Vol] 2.2 10*3/uL 1 - 4.8 K/uL [place] Lymphocytes/100 WBC (Bld) 22.2 % [place] MCH (RBC) [Entitic mass] 25.6 pg Low 27 - 31.3 pg [place] MCHC (RBC) [Mass/Vol] 32.4 % Low 33 - 37 % [place] MCV (RBC) [Entitic vol] 78.9 fL Low 82 - 100 fL [place], [place] Monocytes (Bld) [#/Vol] 0.7 10*3/uL 0.2 - 0.8 K/uL [place], [place] Monocytes/100 WBC (Bld) 6.8 % [place] Neutrophils Absolute 6.6 K/uL High 1.4 - 6 .5 K/uL [place] Neutrophils/100 WBC (Bld) 67.4 % [place] Platelets (Bld) [#/Vol] 290 10*3/uL 130 - 400 K/uL [place] RBC (Bld) [#/Vol] 4.98 10*6/uL [place] WBC (Bld) [#/Vol] 9.8 10*3/uL 4.8 - 10.8 K/uL [place] Comprehensive Metabolic Pane loco 02-28-2019 Albumin [Mass/Vol] 4 g/dL 3.5 - 4.6 g/dL [place] ALP [Catalytic activity/Vol] 93 U/L 40 - 130 U/L [place] ALT [Catalytic activity/Vol] 17 U/L 0 - 33 U/L [place] Anion gap [Moles/Vol] 13 mmol/L [place] AST [Catalytic activity/Vol] 17 U/L 0 - 35 U/L [place] Bilirubin Ql (U) 0.3 mg/dL 0.2 - 0.7 mg/dL [place] Calcium [Mass/Vol] 9.1 mg/dL 8.5 - 9.9 mg/dL [place] Chloride [Moles/Vol] 102 mmol/L [place] CO2 [Moles/Vol] 24 mmol/L [place] Creatinine [Mass/Vol] 0.65 mg/dL 0.5 - 0.9 mg/dL [place] GFR >60.0 >60 [place] Comment on above: >60 mL/min/1.73m2 EG FR, calc. for ages 18 and older using the MDRD formula (not corrected for weight), is valid for stable renal function. GFR Non- >60.0 >60 [place] Comment on above: >60 mL/min/1.73m2 EG FR, calc. for ages 18 and older using the MDRD formula (not corrected for weight), is valid for stable renal function. Globulin (S) [Mass/Vol] 3.6 g/dL High 2.3 - 3.5 g/dL [place] Glucose [Mass/Vol] 371 mg/dL High 70 - 99 mg/dL [place] Potassium [Moles/Vol] 4.1 mmol/L [place] Protein [Mass/Vol] 7.6 g/dL 6.3 - 8 g/dL [place] Sodium [Moles/Vol] 139 mmol/L [place], [place] Urea nitrogen [Mass/Vol] 14 mg/dL 6 - 20 mg/dL [place] Microscopic Urinalysison Bacteria, UA RARE Abnormal /HPF [place] Epi Cells 6-10 [place], [place] Hyaline Casts, UA 1-3 [place] Interpretation and review of laboratory results Abnormal [place] RBC (U) [#/Vol] 3-5 Abnormal [place] WBC, UA 20-50 Abnormal [place] Otheron 02-28-2019 Interpretation and review of laboratory results Abnormal [place] US RETROPERITONEAL LIMITEDon 02-28-2019 INR Coag (Bld) [Relative time] NEGATIVE ULTRASOUND EXAMINATION OF THE KIDNEYS. [place] EXAMINATION: ULTRASO UND RETROPERITONEAL LIMITED (KIDNEYS) CLINICAL HISTORY: L flank cabello flank pain nausea COMPARISONS: 01/28/2019 TECHNIQUE: Transabdominal sector bazan scale sonography. Sonographic imaging was performed by a registered web manager and the images are submitted for interpretation. FINDINGS: The right kidney measures 5.2 x 6.5 x 13.0cm. The left kidney measures 5.2 x 5.5 x 13.8cm. There is no hydronephrosis. No renal masses identified. Renal parenchymal echotexture and thickness appear normal. There is no significant change from prior exam. [place], [place] Hemant, Chpo Incoming Radiant Results From [employer] - 02/28/2019 3:31 PM EDT EXAMINATION: ULTRASOUND RETROPERITONEAL LIMITED (KIDNEYS) CLINICAL HISTORY: L flank cabello flank pain nausea COMPARISONS: 01/28/2019 TECHNIQUE: Transabdominal sector bazan scale sonography. Sonographic imaging was performed by a registered web manager and the images are submitted for interpretation. FINDINGS: The right kidney measures 5.2 x 6.5 x 13.0cm. The left kidney measures 5.2 x 5.5 x 13.8cm. There is no hydronephrosis. No renal masses identified. Renal parenchymal echotexture and thickness appear normal. There is no significant change from prior exam. IMPRESSION: NEGATIVE ULTRASOUND EXAMINATION OF THE KIDNEYS. [place] Urinalysison 02-28-2019 Bilirubin Urine Negative Negative [place] Blood, Urine Negative Negative [place], [place] Clarity, UA Clear Clear [place] Color, UA Yellow Straw/Mower ow [place] Glucose, Ur >=1000 Abnormal Negative mg/dL [place] Interpretation and review of laboratory results Abnormal [place] Ketones Ql (U) Negative Negative mg/dL [place] Leukocyte esterase Test strip Ql (U) TRACE Abnormal Negative [place], [place] Nitrite, Urine Negative Negative [place], [place] pH, UA 5.5 [place] Protein (U) [Mass/Vol] Negative Negat isabella mg/dL [place] Specific Dent, UA 1.037 [place], [place] Urobilinogen, Urine 0.2 <2.0 E.U./dL [place] CT SINUS WO CONTRASTon 02-[address] facial sinuses. All CT scans at this facility use dose modulation, iterative reconstruction, and/or weight based dosing when appropriate to reduce radiation dose to as low as reasonably achievable. [place] facial sinuses, without intravenous contrast [...] lesion is demonstrated. Temporomandibular joints without anomaly. [place] Hemant, Chpo Incoming Radiant Results From [employer] - 02/07/2019 2:[address] facial [...] dose to as low as reasonably achievable. [place] ABDOMEN LIMITEDon 019 NEGATIVE RIGHT UPPER QUADRANT ULTRASOUND. [place] EXAMINATION: US ABDO MEN LIMITED: DATE [...] portion did not demonstrate any gross pathology. [place] Hemant, Chpo Incoming Radiant Results From [employer] - 02/03/2019 2:20 PM EDT EXAMINATION: US [...] pathology. IMPRESSION: NEGATIVE RIGHT UPPER QUADRANT ULTRASOUND. [place] Basic Metabolic Panlon 12-16 Anion gap molar conc 15 mmol/L Normal 9-18 [facility] Calcium mass conc 9.8 mg/dL Normal 8.5-10.2 [facility] Chloride molar conc 97 mmol/L Normal 97-105 [facility] CO2 molar conc 23 mmol/L Normal 22-30 [facility] Creatinine mass conc 0.55 mg/dL Low 0.58-0.96 [facility] eGFR- Amer. >60 Normal [facility] GFR/1.73 sq M predicted among non-blacks MDRD vol rate/area (S/P/Bld) mL/min/{1.73_m2} Normal [facility] Comment on above: Result Comment: eGFR [...] Glucose mass conc 320 mg/dL High 74-99 [facility] Comment on above: Result Comment: The [place] [employer] (ADA) provides guidance for cutoff [...] Standards of Medical Care in Diabetes 2016, [place] [employer]. Diabetes Care. 2016.39(Suppl 1). Potassium molar conc 4.3 mmol/L Normal 3.7-5.1 [facility] Sodium molar conc 135 mmol/L Low 136-144 [facility] Urea nitrogen mass conc 12 mg/dL Normal 7-21 [facility] CBC and Differentialon 12-16 Abs Baso 0.07 k/uL Normal <0.11 [facility] Abs [place] 0.49 k/uL Normal <0.87 [facility] Abs Neut 3.35 k/uL Normal 1.45-7.50 [facility] Absolute nRBC <0.01 Normal <0.01 [facility] Bas[facility] WBC (Bld) 1.1 % Normal [facility] DTYPE Auto Diff Normal [facility] Eosinophils #/vol (Bld) 0.22 10*3/uL Normal <0.46 [facility] Eosinophils/100 WBC (Bld) 3.5 % Normal [facility] Erythrocyte distribution width Ratio (RBC) 13.8 % Normal 11.5-15.0 [facility] Hematocrit Volume Fraction (Bld) 40.9 % Normal 36.0-46.0 [facility] Hemoglobin mass conc (Bld) 12.6 g/dL Normal 11.5-15.5 [facility] Lymphocytes #/vol (Bld) 2.13 10*3/uL Normal 1.00-4.00 [facility] Lymphocytes/100 WBC (Bld) 34.0 % Normal [facility] MCH Entitic mass (RBC) 24.2 pG Low 26.0-34.0 [facility] MCHC mass conc (RBC) 30.8 g/dL Normal 30.5-36.0 [facility] MCV Entitic volume (RBC) 78.7 fL Low 80.0-100.0 [facility] Monocytes/100 WBC (Bld) 7.8 % Normal [facility] Neutrophils/100 WBC (Bld) 53.6 % Normal [facility] NRBCs 0.0 /100 WBC Normal 0 [facility] Platelet mean volume Entitic volume (Bld) 9.5 fL Normal 9.0-12.7 [facility] Platelets #/vol (Bld) 331 10*3/uL Normal 150-400 [facility] RBC #/vol (Bld) 5.20 10*6/uL Normal 3.90-5.20 [facility] WBC #/vol (Bld) 6.26 10*3/uL Normal 3.70-11.00 [facility] ED NOTEon 12-16-2018 ED NOTE HNO ID: [id number] Author: Vivek (Rn) Marc RN Service: ? Author Type: Registered Nurse Type: ED Notes Filed: 12/16/2018 5:22 AM Note Text: Patient discharge instructions and follow up care reviewed and discussed. Patient verbalized understanding of against medical advice form after speaking with Valerie FRANK and this RN and willingly signed it. Patient verbalized understanding with no further questions at discharge. Patient ambulatory at discharge exiting department. [facility] ED NOTE HNO ID: [id number] Author: Vivek WinklerRn) Marc, SHALOM Service: ? Author Type: Registered Nurse Type: ED Notes Filed: 12/16/2018 5:01 AM Note Text: Patient states she is unsure if she wants to stay and is contemplating going home and calling her doctor in the morning. Valerie FRANK notified. [facility] ED NOTE HNO ID: [id number] Author: Margaret Burnette (Juliana Reno Service: ? Author Type: Electrical Instrument Technician and Can Washer Type: ED Notes Filed: 12/16/2018 4:56 AM Note Text: Labs were drawn and sent. [facility] ED NOTE HNO ID: [id number] Author: Vivek (Rn) SHALOM Tran Service: ? Author Type: Registered Nurse Type: ED Notes Filed: 12/16/2018 4:21 AM Note Text: Patient presents to ED for c/o right flank pain since Thursday. Reports nausea and dry heaves. Burning with urination. Hx kidney stones. Aox3. [facility] ED PROV NOTEon 12-16-2018 Protein mass conc HNO ID: [id number] Author: MONIKA Laurent Service: ? Author Type: Physician Immigration Patrol Inspector Type: ED Provider Notes Filed: 12/17/2018 2:34 [...] Patient states that she was seen at [facility] for the same complaints, but she does [...] Course as of Dec 17 1420 Valerie Juliet's Documentation [facility] Dec 16, 2018 0513 Patient prefers to [...] but crying. She ambulated to room in [facility]. VS with tachycardia of 125, BP 152/91, [...] dilaudid. Seen on 12/13 and 12/14 at [facility] ED for right flank pain, urine with [...] paperwork and walked out of ED in [facility]. DispositionThe patient was AMA. Condition at disposition is unchanged. SIGNATURE: MONIKA Laurent PA 12/17/18 1434 Normal [facility] PROGRESSon 12-16-2018 Protein mass conc HNO ID: [id number] Author: Zenaida Peña Service: ? Author Type: [...] Peña December 16, 2018 5:04 AM Normal [facility] Urinalysis with Microscopico n 12-16-2018 Bacteria LM.HPF #/area (Urine sed) Present Critically abnormal 0 [facility] Bilirubin, Urine Negative Normal Negative [facility] pital Cast SEE COMMENT Normal 0 [facility] Comment on above: Result Comment: 0 Clarity Nom (U) Cloudy Critically abnormal Clear [facility] Color Nom (U) Yellow Normal Yellow [facility] Epithelial cells LM.HPF #/area (Urine sed) SEE COMMENT Normal [facility] Comment on above: Result Comment: Few Squamous Epithelial Cells Rare Non-Squamous Epithelial Cells Glucose Ql (U) >=1000 Critically abnormal Negative [facility] Hemoglobin/Blood,Ur 3+ Critically abnormal Negative [facility] Ketones Ql (U) Trace Critically abnormal Negative [facility] Leukest 1+ Critically abnormal Negative [facility] Nitrite Ql (U) Negative Normal Negative [facility] pH (Bld) 5.5 Normal 4.5-8.0 [facility] Protein mass conc (U) Trace Critically abnormal Negative [facility] RBC #/vol (U) /uL Critically abnormal 0-3 [facility] Specific Dent, Ur >1.030 High 1.005-1 .03 0 [facility] Urobilinogen Qn (U) Normal Normal Normal [facility] WBC #/vol (Bld) 11-25 Critically abnormal 0-5 [facility] Urine Cultureon 12-16-2018 Bacteria identified Cx Nom (U) Sp. Request/Comment: - Specimen received in preservative Culture Result - 10,000 - <50,000 CFU/ml Normal urogenital lucia Normal [facility] Comment on above: Performed By: #### U RCUL #### [facility] [address] [place], [place] [address] XR ABDOMEN 1V SUPINEon 12-16 XR ABDOMEN [...] distal left ureter stone. No dilated bowel Stock Selector: DALIA Transcribe Date/Time: Dec 16 2018 5:07A Dictated by : GELY MARTIN MD This examination was interpreted and the report reviewed and electronically signed by: GELY MARTIN MD on Dec 16 2018 5:10AM EST [id number] Normal [facility] Amylaseon 09-19-2018 Amylase enzyme act/vol 18 U/L Normal 12-94 [facility] Comment on above: Performed By: #### U ARFX #### [facility] [address] [place] [address] CBC With Differentialon 08-28 Basophils #/vol (Bld) 0.03 10*3/uL Normal 0.01-0.07 [facility] Comment on above: Performed By: #### U ARFX #### [facility] [address] [place] [address] Basophils/100 WBC (Bld) 0.5 % Normal 0.1-1.2 [facility] Comment on above: Performed By: #### U ARFX #### [facility] [address] [place] [address] Eosinophils #/vol (Bld) 0.07 10*3/uL Normal 0.04-0.50 [facility] Comment on above: Performed By: #### U ARFX #### [facility] [address] [place] [address] Eosinophils/100 WBC (Bld) 1.1 % Normal 0.0-8.1 [facility] Healthcare Comment on above: Performed By: #### U ARFX #### [facility] [address] [place] [address] Erythrocyte distribution width Ratio (RBC) 13.4 % Normal 12.0-15.4 [facility] Comment on above: Performed By: #### U ARFX #### [facility] [address] [place] [address] Hematocrit Volume Fraction (Bld) 40.3 % Normal 36.5-46.6 [facility] Comment on above: Performed By: #### U ARFX #### [facility] [address] [place] [address] Hemoglobin mass conc (Bld) 13.1 g/dL Normal 11.8-15.3 [facility] Comment on above: Performed By: #### U ARFX #### [facility] [address] [place] [address] Imm Grans Absolute 0.01 10*3/uL Normal [facility] Comment on above: Performed By: #### U ARFX #### [facility] [address] [place] [address] Immature granulocytes #/vol (Bld) 0.2 % Normal [facility] Healthcare Comment on above: Performed By: #### U ARFX #### [facility] [address] [place] [address] Lymphocytes #/vol (Bld) 2.31 10*3/uL Normal 0.40-2.84 [facility] Healthcare Comment on above: Performed By: #### U ARFX #### [facility] [address] [place] [address] Lymphocytes/100 WBC (Bld) 34.8 % Normal 15.7-50.5 [facility] Comment on above: Performed By: #### U ARFX #### [facility] [address] [place] [address] MCH Entitic mass (RBC) 26.1 pg Low 27.5-33.0 [facility] Healthcare Comment on above: Performed By: #### U ARFX #### [facility] [address] [place] [address] MCHC mass conc (RBC) 32.5 g/dL Normal 30.1-35.0 [facility] Healthcare Comment on above: Performed By: #### U ARFX #### [facility] [address] [place], [place] [id number] MCV Entitic volume (RBC) 80.4 fL Low 85.4-100.0 [facility] Comment on above: Performed By: #### U ARFX #### [facility] [address] [place] [address] Monocytes #/vol (Bld) 0.69 10*3/uL Normal 0.25-0.83 [facility] Healthcare Comment on above: Performed By: #### U ARFX #### [facility] [address] [place] [address] Monocytes/100 WBC (Bld) 10.4 % Normal 4.8-12.7 [facility] Healthcare Comment on above: Performed By: #### U ARFX #### [facility] [address] [place] [address] Neutrophils Absolute 3.52 10*3/uL Normal 1.95-6.85 [facility] Comment on above: Performed By: #### U ARFX #### [facility] [address] [place] [address] Neutrophils/100 WBC (Bld) 53.0 % Normal 36.8-73.2 [facility] Comment on above: Performed By: #### U ARFX #### [facility] [address] [place] [address] Platelet mean volume Entitic volume (Bld) 9.6 fL Low 9.9-12.1 [facility] Comment on above: Performed By: #### U ARFX #### [facility] [address] [place] [address] Platelets #/vol (Bld) 276 10*3/uL Normal 155-404 [facility] Comment on above: Performed By: #### U ARFX #### [facility] [address] [place] [address] RBC #/vol (Bld) 5.01 10*6/uL Normal 3.85-5.10 [facility] Comment on above: Performed By: #### U ARFX #### [facility] [address] [place] [address] RDW SD 39.3 fL Normal 39.3-48.6 [facility] Healthcare Comment on above: Performed By: #### U ARFX #### [facility] [address] [place] [address] WBC #/vol (Bld) 6.6 10*3/uL Normal 4.4-9.9 [facility] Comment on above: Performed By: #### U ARFX #### [facility] [address] [place] [address] CHEST 2 VIEWon 09-19-2018 CHEST 2 VIEW DATE OF EXAM: Sep 18 2018 11:01PM CLINICAL HISTORY/ Patient Name: GISEL CARLTON STUDY: CHEST 2 VIEW; 09/18/2018 11:01 pm INDICATION: Pain. COMPARISON: Chest radiograph 08/2015 ACCESSION NUMBER(S): [id number] ORDERING CLINICIAN: CRISTI YUSUF FINDINGS: CARDIOMEDIASTINAL SILHOUETTE: Cardiomediastinal silhouette is normal in size and configuration. LUNGS: No pulmonary consolidation, pleural effusion or pneumothorax. ABDOMEN: No remarkable upper abdominal findings. BONES: No acute osseous abnormality. CONCLUSION: IMPRESSION: No radiographic evidence of acute cardiopulmonary pathology. Normal [facility] CT ABDOMEN/PELVIS WITH CONTR Stella 09-19-2018 CT ABDOMEN/PELVIS WITH CONTRAST DATE OF EXAM: Sep 19 2018 12:44AM CLINICAL HISTORY/ Patient Name: GISEL CARLTON STUDY: CT ABDOMEN/PELVIS WITH CONTRAST; 09/19/2018 12:44 am INDICATION: Abdominal Pain. Right lower quadrant and right flank pain. Nausea and vomiting. COMPARISON: CT abdomen pelvis 10/15/2017 ACCESSION NUMBER(S): [id number] ORDERING CLINICIAN: CRISTI YUSUF TECHNIQUE: Axial CT [...] evidence of obstructive uropathy. Normal appendix. Normal [facility] Comprehensive Metabolic Pane loco 09-19-2018 Albumin mass conc 4.0 g/dL Normal 3.4-5.0 [facility] Comment on above: Performed By: #### U ARFX #### [facility] [address] [place] [address] Albumin/Globulin mass ratio 1.3 {ratio} Normal 0.9-2.4 [facility] Comment on above: Performed By: #### U ARFX #### [facility] [address] [place] [address] ALP enzyme act/vol 67 U/L Normal 45-117 [facility] Comment on above: Performed By: #### U ARFX #### [facility] [address] [place] [address] ALT enzyme act/vol 18 U/L Normal 7-45 [facility] Comment on above: Performed By: #### U ARFX #### [facility] [address] [place] [address] Anion gap molar conc 14 mmol/L Normal 10-20 [facility] Comment on above: Performed By: #### U ARFX #### [facility] [address] [place] [address] AST enzyme act/vol 16 U/L Normal 13-39 [facility] Healthcare Comment on above: Performed By: #### U ARFX #### [facility] [address] [place] [address] Bilirubin mass conc 0.6 mg/dL Normal 0.0-1.2 [facility] Healthcare Comment on above: Performed By: #### U ARFX #### [facility] [address] [place] [address] Calcium mass conc 8.5 mg/dL Low 8.6-10.3 [facility] Comment on above: Performed By: #### U ARFX #### [facility] [address] [place] [address] Chloride molar conc 102 mmol/L Normal 98-107 [facility] Comment on above: Performed By: #### U ARFX #### [facility] [address] [place] [address] Creatinine mass conc 0.70 mg/dL Normal 0.50-1.05 [facility] Comment on above: Performed By: #### U ARFX #### [facility] [address] [place] [address] GFR/1.73 sq M.predicted MDRD vol rate/area mL/min/{1.73_m2} Normal [facility] Comment on above: Result Comment: Inte rpretation for Chronic Kidney Disease: Stages 1&2 >60 Healthy or potential kidney damage. Mild decrease of GFR. Stage 3 30-59 Moderate decrease of GFR. Stage 4 15-29 Severe decrease of GFR. Stage 5 <15 Kidney failure or on dialysis. Performed By: #### U ARFX #### [facility] [address] [place] [address] Glucose mass conc 222 mg/dL High 70-100 [facility] Comment on above: Performed By: #### U ARFX #### [facility] [address] [place] [address] HCO3 molar conc (Bld) 25 mmol/L Normal 21-32 [facility] Comment on above: Performed By: #### U ARFX #### [facility] [address] [place] [address] Potassium molar conc 3.3 mmol/L Low 3.5-5.1 [facility] Comment on above: Performed By: #### U ARFX #### [facility] [address] [place] [address] Protein mass conc 7.1 g/dL Normal 6.4-8.2 [facility] Comment on above: Performed By: #### U ARFX #### [facility] [address] [place] [address] Sodium molar conc 138 mmol/L Normal 136-145 [facility] Comment on above: Performed By: #### U ARFX #### [facility] [address] [place] [address] Urea nitrogen mass conc 18 mg/dL Normal 6-23 [facility] Comment on above: Performed By: #### U ARFX #### [facility] [address] [place] [address] Urea nitrogen/Creatinine mass ratio 26 mg/mg High 5-25 [facility] Comment on above: Performed By: #### U ARFX #### [facility] [address] [place] [address] Culture, Urine Bacterialon 0 09-19-2018 Culture, Urine Bacterial BILL#: [id number] : 75 AGE: SEX: F SOURCE: URINE COLLECTED: 09/18/18 23:38 ANTIBIOTICS AT [facility].: RECEIVED : 09/19/18 21:48 SITE: Unspecified R E S U L T S URINE CULTURE,BACTERIAL FINAL 09/20/18 15:01 NO GROWTH Normal [facility] Comment on above: Performed By: #### 3 [id number] #### [facility] [address] [place] [address] Lipaseon 09-19-2018 Lipase enzyme act/vol 11 U/L Normal 9-82 [facility] Comment on above: Performed By: #### U ARFX #### [facility] [address] [place] [address] Partial Thromboplastin Timeo n 09-19-2018 aPTT Coag time (Bld) 28.1 s Normal 28.0-38.0 [facility] Comment on above: Result Comment: PLEA SE NOTE NEW REFERENCE RANGE EFFECTIVE 10:00AM 2018 . The APTT is no longer used for monitoring Unfractionated Heparin Therapy. For monitoring Heparin Therapy, use the Heparin Assay. Performed By: #### U ARFX #### [facility] [address] [place] [address] Prothrombin Timeon 9 INR Coag RelTime (PPP) 1.07 {INR} Normal 0.90-1.10 [facility] Comment on above: Performed By: #### U ARFX #### [facility] [address] [place] [address] Prothrombin time (PT) Coag time (PPP) 11.8 s Normal 9.7-12.7 [facility] Comment on above: Result Comment: PLEA SE NOTE NEW REFERENCE RANGE EFFECTIVE 2018 Performed By: #### U ARFX #### [facility] [address] [place] [address] Urinalysis with Reflex Cultu reon 09-19-2018 Appearance Nom (U) Cloudy Normal Clear [facility] Comment on above: Performed By: #### U ARFX #### [facility] [address] [place] [address] Ascorbic Acid Negative Normal Negative [facility] Comment on above: Performed By: #### U ARFX #### [facility] [address] [place] [address] Bacteria LM.HPF #/area (Urine sed) Moderate Normal None [facility] Comment on above: Performed By: #### U ARFX #### [facility] [address] [place] [address] Bilirubin mass conc Negative Normal Negative [facility] Comment on above: Performed By: #### U ARFX #### [facility] [address] [place] [address] Blood Negative Normal Negative [facility] Comment on above: Performed By: #### U ARFX #### [facility] [address] [place] [address] Color Nom (U) Yellow Normal [facility] Comment on above: Performed By: #### U ARFX #### [facility] [address] [place] [address] Epithelial cells.squamous LM.HPF #/area (Urine sed) Many Normal Few [facility] Comment on above: Performed By: #### U ARFX #### [facility] [address] [place] [address] Glucose mass conc Negative Normal Negative [facility] Comment on above: Performed By: #### U ARFX #### [facility] [address] [place] [address] Ketones Ql (U) 5 mg/dL Abnormal Negative [facility] Comment on above: Performed By: #### U ARFX #### [facility] [address] [place] [address] Leukocytes Esterase Moderate Abnormal Negative [facility] Comment on above: Performed By: #### U ARFX #### [facility] [address] [place] [address] Mucous Few Normal None [facility] Comment on above: Performed By: #### U ARFX #### [facility] [address] [place] [address] Nitrite Ql (U) Negative Normal Negative [facility] Comment on above: Performed By: #### U ARFX #### [facility] [address] [place] [address] pH (Bld) 5.0 Normal 5.0-9.0 [facility] Comment on above: Performed By: #### U ARFX #### [facility] [address] [place] [address] Protein mass conc (U) Negative Normal Negative [facility] Comment on above: Performed By: #### U ARFX #### [facility] [address] [place] [address] Specific gravity Relative Density (U) 1.031 Normal 1.003-1.03 5 [facility] Comment on above: Performed By: #### U ARFX #### [facility] [address] [place] [address] Urine Microscopic Performed Normal [facility] Comment on above: Performed By: #### U ARFX #### [facility] [address] [place] [address] Urobilinogen Qn (U) <2.0 Normal Negative [facility] Comment on above: Result Comment: Due to a manufacturing issue, low positive urobilinogen results may be falsely positive. Correlate with urine bilirubin and additional clinical/laboratory findings to assess the risk of hemolytic anemia or liver disease. If clinically indicated, repeat testing with an alternate method is available by contacting the laboratory within 24 hours. Performed By: #### U ARFX #### [facility] [address] [place] [address] WBC #/vol (Bld) 5-10 Normal 0-5 [facility] Comment on above: Performed By: #### U ARFX #### [facility] [address] [place] [address] Basic Metabolic Panelon -2 Anion gap molar conc 16 mmol/L Normal 10-20 [facility] Comment on above: Performed By: #### 1 [id number] #### [facility] [address] [place] [address] Calcium mass conc 9.8 mg/dL Normal 8.6-10.3 [facility] Comment on above: Performed By: #### 1 [id number] #### [facility] [address] [place] [address] Chloride molar conc 102 mmol/L Normal 98-107 [facility] Comment on above: Performed By: #### 1 [id number] #### [facility] [address] [place] [address] Creatinine mass conc 0.71 mg/dL Normal 0.50-1.05 [facility] Comment on above: Performed By: #### 1 [id number] #### [facility] [address] [place] [address] GFR/1.73 sq M.predicted MDRD vol rate/area mL/min/{1.73_m2} Normal [facility] Comment on above: Result Comment: Inte rpretation for Chronic Kidney Disease: Stages 1&2 >60 Healthy or potential kidney damage. Mild decrease of GFR. Stage 3 30-59 Moderate decrease of GFR. Stage 4 15-29 Severe decrease of GFR. Stage 5 <15 Kidney failure or on dialysis. Performed By: #### 1 [id number] #### [facility] [address] [place] [address] Glucose mass conc 182 mg/dL High 70-100 [facility] Comment on above: Performed By: #### 1 [id number] #### [facility] [address] [place] [address] HCO3 molar conc (Bld) 25 mmol/L Normal 21-32 [facility] Comment on above: Performed By: #### 1 [id number] #### [facility] [address] [place] [address] Potassium molar conc 4.5 mmol/L Normal 3.5-5.1 [facility] Comment on above: Performed By: #### 1 [id number] #### [facility] [address] [place] [address] Sodium molar conc 138 mmol/L Normal 136-145 [facility] Comment on above: Performed By: #### 1 [id number] #### [facility] [address] [place] [address] Urea nitrogen mass conc 14 mg/dL Normal 6-23 [facility] Comment on above: Performed By: #### 1 [id number] #### [facility] [address] [place] [address] Urea nitrogen/Creatinine mass ratio 20 mg/mg Normal 5-25 [facility] Comment on above: Performed By: #### 1 [id number] #### [facility] [address] [place] [address] CBC With Differentialon -2 Basophils #/vol (Bld) 0.07 10*3/uL Normal 0.01-0.07 [facility] Comment on above: Performed By: #### U ARFX #### [facility] [address] [place] [address] Basophils/100 WBC (Bld) 0.8 % Normal 0.1-1.2 [facility] Comment on above: Performed By: #### U ARFX #### [facility] [address] [place] [address] Eosinophils #/vol (Bld) 0.21 10*3/uL Normal 0.04-0.50 [facility] Comment on above: Performed By: #### U ARFX #### [facility] [address] [place] [address] Eosinophils/100 WBC (Bld) 2.5 % Normal 0.0-8.1 [facility] Comment on above: Performed By: #### U ARFX #### [facility] [address] [place] [address] Erythrocyte distribution width Ratio (RBC) 13.3 % Normal 12.0-15.4 [facility] Comment on above: Performed By: #### U ARFX #### [facility] [address] [place] [address] Hematocrit Volume Fraction (Bld) 40.0 % Normal 36.5-46.6 [facility] Comment on above: Performed By: #### U ARFX #### [facility] [address] [place] [address] Hemoglobin mass conc (Bld) 12.9 g/dL Normal 11.8-15.3 [facility] Comment on above: Performed By: #### U ARFX #### [facility] [address] [place] [address] Imm Grans Absolute 0.01 10*3/uL Normal 0.00-0.21 [facility] Comment on above: Performed By: #### U ARFX #### [facility] [address] [place] [address] Immature granulocytes #/vol (Bld) 0.1 % Normal [facility] Comment on above: Performed By: #### U ARFX #### [facility] [address] [place] [address] Lymphocytes #/vol (Bld) 2.43 10*3/uL Normal 0.40-2.84 [facility] Comment on above: Performed By: #### U ARFX #### [facility] [address] [place] [address] Lymphocytes/100 WBC (Bld) 28.4 % Normal 15.7-50.5 [facility] Comment on above: Performed By: #### U ARFX #### [facility] [address] [place] [address] MCH Entitic mass (RBC) 26.1 pg Low 27.5-33.0 [facility] Comment on above: Performed By: #### U ARFX #### [facility] [address] [place] [address] MCHC mass conc (RBC) 32.3 g/dL Normal 30.1-35.0 [facility] Comment on above: Performed By: #### U ARFX #### [facility] [address] [place] [address] MCV Entitic volume (RBC) 80.8 fL Low 85.4-100.0 [facility] Comment on above: Performed By: #### U ARFX #### [facility] [address] [place] [address] Monocytes #/vol (Bld) 0.59 10*3/uL Normal 0.25-0.83 [facility] Comment on above: Performed By: #### U ARFX #### [facility] [address] [place] [address] Monocytes/100 WBC (Bld) 6.9 % Normal 4.8-12.7 [facility] Comment on above: Performed By: #### U ARFX #### [facility] [address] [place] [address] Neutrophils Absolute 5.26 10*3/uL Normal 1.95-6.85 [facility] Comment on above: Result Comment: Revi ewed by tech, consistent with instrument results. Performed By: #### U ARFX #### [facility] [address] [place] [address] Neutrophils/100 WBC (Bld) 61.3 % Normal 36.8-73.2 [facility] Comment on above: Performed By: #### U ARFX #### [facility] [address] [place] [address] NRBC Absolute 0.00 10*3/uL Normal [facility] Comment on above: Performed By: #### U ARFX #### [facility] [address] [place] [address] NRBC Automated 0.0 /100{WBCs} Normal [facility] Comment on above: Performed By: #### U ARFX #### [facility] [address] [place] [address] Platelet mean volume Entitic volume (Bld) 9.6 fL Low 9.9-12.1 [facility] Comment on above: Performed By: #### U ARFX #### [facility] [address] [place] [address] Platelets #/vol (Bld) 308 10*3/uL Normal 155-404 [facility] Comment on above: Result Comment: Plat elet count confirmed by smear review. Performed By: #### U ARFX #### [facility] [address] [place] [address] RBC #/vol (Bld) 4.95 10*6/uL Normal 3.85-5.10 [facility] Comment on above: Performed By: #### U ARFX #### [facility] [address] [place] [address] RDW SD 38.6 fL Low 39.3-48.6 [facility] Comment on above: Performed By: #### U ARFX #### [facility] [address] [place] [address] WBC #/vol (Bld) 8.6 10*3/uL Normal 4.4-9.9 [facility] Comment on above: Performed By: #### U ARFX #### [facility] [address] [place] [address] Culture, Urine Bacterialon 0 08-26-2018 Culture, Urine Bacterial BILL#: [id number] : 75 AGE: SEX: F SOURCE: COLLECTED: 08/26/18 10:08 ANTIBIOTICS AT [facility].: RECEIVED : 08/26/18 21:25 SITE: SAME SOURCE R E S U L T S URINE CULTURE,BACTERIAL FINAL 08/27/18 13:44 MIXED URETHRAL LUCIA. Normal [facility] Comment on above: Performed By: #### U ARFX #### [facility] [address] [place] [address] Test (Serum)on Test, Serum Negative Normal [facility] Comment on above: Performed By: #### 3 [id number] #### [facility] [address] [place] [address] Urinalysison 08-26-2018 Appearance Nom (U) Cloudy Normal Clear [facility] Comment on above: Performed By: #### U ARFX #### [facility] [address] [place] [address] Ascorbic Acid Negative Normal Negative [facility] Comment on above: Performed By: #### U ARFX #### [facility] [address] [place] [address] Automated Urine Microscopy Performed Normal [facility] Comment on above: Performed By: #### U ARFX #### [facility] [address] [place] [address] Bacteria LM.HPF #/area (Urine sed) Many Normal None [facility] Comment on above: Performed By: #### U ARFX #### [facility] [address] [place] [address] Bilirubin mass conc Negative Normal Negative [facility] Comment on above: Performed By: #### U ARFX #### [facility] [address] [place] [address] Blood Large Abnormal Negative [facility] Comment on above: Performed By: #### U ARFX #### [facility] [address] [place] [address] Color Nom (U) Yellow Normal [facility] Comment on above: Performed By: #### U ARFX #### [facility] [address] [place] [address] Glucose mass conc Negative Normal Negative [facility] Comment on above: Performed By: #### U ARFX #### [facility] [address] [place] [address] Hyaline Cast 12 /[LPF] Normal None [facility] Comment on above: Performed By: #### U ARFX #### [facility] [address] [place] [address] Ketones Ql (U) Negative Normal Negative [facility] Comment on above: Performed By: #### U ARFX #### [facility] [address] [place] [address] Leukocytes Esterase Small Abnormal Negative [facility] Comment on above: Performed By: #### U ARFX #### [facility] [address] [place] [address] Mucous Many Normal None [facility] Comment on above: Performed By: #### U ARFX #### [facility] [address] [place] [address] Nitrite Ql (U) Negative Normal Negative [facility] Comment on above: Performed By: #### U ARFX #### [facility] [address] [place] [address] pH (Bld) 5.0 Normal 5.0-9.0 [facility] Comment on above: Performed By: #### U ARFX #### [facility] [address] [place] [address] Protein mass conc (U) 30 mg/dL Abnormal Negative [facility] Comment on above: Performed By: #### U ARFX #### [facility] [address] [place] [address] RBC 421 /[HPF] Normal 0-3 [facility] Comment on above: Performed By: #### U ARFX #### [facility] [address] [place] [address] Specific gravity Relative Density (U) 1.023 Normal 1.003-1.03 5 [facility] Comment on above: Performed By: #### U ARFX #### [facility] [address] [place] [address] Squamous Epithelial Cells 21 /[HPF] Normal 0-5 [facility] Comment on above: Performed By: #### U ARFX #### [facility] [address] [place] [address] Urobilinogen Qn (U) <2.0 Normal Negative EM [...] hours. Performed By: #### U ARFX #### [facility] [address] [place] [address] WBC 6 /[HPF] Normal 0-5 [facility] Comment on above: Performed By: #### U ARFX #### [facility] [address] [place] [address] Amylaseon 10-15-2017 Amylase enzyme act/vol 26 U/L Normal 12-94 [facility] Comment on above: Performed By: #### 1 [id number] #### [facility] [address] [place] [address] CBC With Differentialon 09-27 Basophils #/vol (Bld) 0.04 10*3/uL Normal 0.01-0.07 [facility] Comment on above: Performed By: #### 2 [id number] #### [facility] [address] [place] [address] Basophils/100 WBC (Bld) 0.5 % Normal 0.1-1.2 [facility] Comment on above: Performed By: #### 2 [id number] #### [facility] [address] [place] [address] Eosinophils #/vol (Bld) 0.13 10*3/uL Normal 0.04-0.50 [facility] Comment on above: Performed By: #### 2 [id number] #### [facility] [address] [place] [address] Eosinophils/100 WBC (Bld) 1.6 % Normal 0.0-8.1 [facility] Comment on above: Performed By: #### 2 [id number] #### [facility] [address] [place] [address] Erythrocyte distribution width Ratio (RBC) 12.5 % Normal 12.0-15.4 [facility] Comment on above: Performed By: #### 2 [id number] #### [facility] [address] [place] [address] Hematocrit Volume Fraction (Bld) 41.7 % Normal 36.5-46.6 [facility] Comment on above: Performed By: #### 2 [id number] #### [facility] [address] [place] [address] Hemoglobin mass conc (Bld) 14.6 g/dL Normal 11.8-15.3 [facility] Comment on above: Performed By: #### 2 [id number] #### [facility] [address] [place] [address] Imm Grans Absolute 0.02 10*3/uL Normal 0.00-0.21 [facility] Comment on above: Performed By: #### 2 [id number] #### [facility] [address] [place] [address] Immature granulocytes #/vol (Bld) 0.2 % Normal [facility] Comment on above: Performed By: #### 2 [id number] #### [facility] [address] [place] [address] Lymphocytes #/vol (Bld) 1.75 10*3/uL Normal 0.40-2.84 [facility] Comment on above: Performed By: #### 2 [id number] #### [facility] [address] [place] [address] Lymphocytes/100 WBC (Bld) 21.6 % Normal 15.7-50.5 [facility] Comment on above: Performed By: #### 2 [id number] #### [facility] [address] [place] [address] MCH Entitic mass (RBC) 29.4 pg Normal 27.5-33.0 [facility] Comment on above: Performed By: #### 2 [id number] #### [facility] [address] [place] [address] MCHC mass conc (RBC) 35.0 g/dL Normal 30.1-35.0 [facility] Comment on above: Performed By: #### 2 [id number] #### [facility] [address] [place] [address] MCV Entitic volume (RBC) 84.1 fL Low 85.4-100.0 [facility] Comment on above: Performed By: #### 2 [id number] #### [facility] [address] [place] [address] Monocytes #/vol (Bld) 0.50 10*3/uL Normal 0.25-0.83 [facility] Comment on above: Performed By: #### 2 [id number] #### [facility] [address] [place] [address] Monocytes/100 WBC (Bld) 6.2 % Normal 4.8-12.7 [facility] Comment on above: Performed By: #### 2 [id number] #### [facility] [address] [place] [address] Neutrophils Absolute 5.66 10*3/uL Normal 1.95-6.85 [facility] Comment on above: Performed By: #### 2 [id number] #### [facility] [address] [place] [address] Neutrophils/100 WBC (Bld) 69.9 % Normal 36.8-73.2 [facility] Comment on above: Performed By: #### 2 [id number] #### [facility] [address] [place] [address] NRBC Absolute 0.00 10*3/uL Normal [facility] Comment on above: Performed By: #### 2 [id number] #### [facility] [address] [place] [address] NRBC Automated 0.0 /100{WBCs} Normal [facility] Comment on above: Performed By: #### 2 [id number] #### [facility] [address] [place] [address] Platelet mean volume Entitic volume (Bld) 9.2 fL Low 9.9-12.1 [facility] Comment on above: Performed By: #### 2 [id number] #### [facility] [address] [place] [address] Platelets #/vol (Bld) 299 10*3/uL Normal 155-404 [facility] Comment on above: Performed By: #### 2 [id number] #### [facility] [address] [place] [address] RBC #/vol (Bld) 4.96 10*6/uL Normal 3.85-5.10 [facility] Comment on above: Performed By: #### 2 [id number] #### [facility] [address] [place] [address] RDW SD 37.2 fL Low 39.3-48.6 [facility] Comment on above: Performed By: #### 2 [id number] #### [facility] [address] [place] [address] WBC #/vol (Bld) 8.1 10*3/uL Normal 4.4-9.9 [facility] Comment on above: Performed By: #### 2 [id number] #### [facility] [address] [place] [address] CT ABDOMEN/PELVIS W/O CONTRA STon 10-15-2017 CT ABDOMEN/PELVIS W/O CONTRAST DATE OF EXAM: Oct 15 2017 12:54PM CLINICAL HISTORY/ Patient Name: GISEL CARLTON STUDY: CT ABDOMEN/PELVIS W/O CONTRAST; 10/15/2017 12:54 pm INDICATION: . Left flank pain COMPARISON: 12/09/2016 ACCESSION NUMBER(S): [id number] ORDERING CLINICIAN: SENA DING TECHNIQUE: Helical CT [...] appendix. No bowel obstruction. No diverticulitis. Normal [facility] Comprehensive Metabolic Pane loco 10-15-2017 Albumin mass conc 4.4 g/dL Normal 3.4-5.0 [facility] Comment on above: Performed By: #### 1 [id number] #### [facility] [address] [place] [address] Albumin/Globulin mass ratio 1.3 {ratio} Normal 0.9-2.4 [facility] Comment on above: Performed By: #### 1 [id number] #### [facility] [address] [place] [address] ALP enzyme act/vol 102 U/L Normal 45-117 [facility] Comment on above: Performed By: #### 1 [id number] #### [facility] [address] [place] [address] ALT enzyme act/vol 16 U/L Normal 7-45 [facility] Comment on above: Performed By: #### 1 [id number] #### [facility] [address] [place] [address] Anion gap molar conc 15 mmol/L Normal 10-20 [facility] Comment on above: Performed By: #### 1 [id number] #### [facility] [address] [place] [address] AST enzyme act/vol 13 U/L Normal 13-39 [facility] Comment on above: Performed By: #### 1 [id number] #### [facility] [address] [place] [address] Bilirubin mass conc 0.4 mg/dL Normal 0.0-1.2 [facility] Comment on above: Performed By: #### 1 [id number] #### [facility] [address] [place] [address] Calcium mass conc 9.9 mg/dL Normal 8.6-10.3 [facility] Comment on above: Performed By: #### 1 [id number] #### [facility] [address] [place] [address] Chloride molar conc 100 mmol/L Normal 98-107 [facility] Comment on above: Performed By: #### 1 [id number] #### [facility] [address] [place] [address] Creatinine mass conc 0.68 mg/dL Normal 0.50-1.05 [facility] Comment on above: Performed By: #### [id number] #### [facility] [address] [place] [address] GFR/1.73 sq M.predicted MDRD vol rate/area mL/min/{1.73_m2} Normal [facility] Comment on above: Result Comment: Inte rpretation for Chronic Kidney Disease: Stages 1&2 >60 Healthy or potential kidney damage. Mild decrease of GFR. Stage 3 30-59 Moderate decrease of GFR. Stage 4 15-29 Severe decrease of GFR. Stage 5 <15 Kidney failure or on dialysis. Performed By: #### 1 [id number] #### [facility] [address] [place] [address] Glucose mass conc 356 mg/dL High 70-100 [facility] Comment on above: Performed By: #### 1 [id number] #### [facility] [address] [place] [address] HCO3 molar conc (Bld) 24 mmol/L Normal 21-32 [facility] Comment on above: Performed By: #### 1 [id number] #### [facility] [address] [place] [address] Potassium molar conc 4.0 mmol/L Normal 3.5-5.1 [facility] Comment on above: Performed By: #### 1 [id number] #### [facility] [address] [place] [address] Protein mass conc 7.9 g/dL Normal 6.4-8.2 [facility] Comment on above: Performed By: #### 1 [id number] #### [facility] [address] [place] [address] Sodium molar conc 135 mmol/L Low 136-145 [facility] Comment on above: Performed By: #### 1 [id number] #### [facility] [address] [place] [address] Urea nitrogen mass conc 12 mg/dL Normal 6-23 [facility] Comment on above: Performed By: #### 1 [id number] #### [facility] [address] [place] [address] Urea nitrogen/Creatinine mass ratio 18 mg/mg Normal 5-25 [facility] Comment on above: Performed By: #### 1 [id number] #### [facility] [address] [place] [address] Culture, Urine Bacterialon 0 10-15-2017 Culture, Urine Bacterial BILL#: [id number] : 75 AGE: SEX: Kamryn PIERCE SOURCE: URINE COLLECTED: 10/15/17 11:33 ANTIBIOTICS AT [facility].: RECEIVED : 10/15/17 17:57 SITE: Unspecified R E S U L T S URINE CULTURE,BACTERIAL FINAL 10/16/17 11:48 MULTIPLE ORGANISMS PRESENT, PROBABLE CONTAMINATION PLEASE REPEAT CULTURE. Normal [facility] Comment on above: Performed By: #### C XBUR #### [facility] [address] [place] [address] Lipaseon 10-15-2017 Lipase enzyme act/vol 20 U/L Normal 9- [facility] Comment on above: Performed By: #### 1 [id number] #### [facility] [address] [place] [address] Test (Serum)on Test, Serum Negative Normal [facility] Comment on above: Performed By: #### 3 [id number] #### [facility] [address] [place] [address] Urinalysis with Reflex Cultu reon 10-15-2017 Appearance Nom (U) Hazy Normal Clear [facility] Comment on above: Performed By: #### U ARFX #### [facility] [address] [place] [address] Ascorbic Acid Negative Normal Negative [facility] Comment on above: Performed By: #### U ARFX #### [facility] [address] [place] [address] Automated Urine Microscopy Performed Normal [facility] Comment on above: Performed By: #### U ARFX #### [facility] [address] [place] [address] Bilirubin mass conc Negative Normal Negative [facility] Comment on above: Performed By: #### U ARFX #### [facility] [address] [place] [address] Blood Large Abnormal Negative [facility] Comment on above: Performed By: #### U ARFX #### [facility] [address] [place] [address] Budding Yeast Occasional Normal None [facility] Comment on above: Performed By: #### U ARFX #### [facility] [address] [place] [address] Color Nom (U) Yellow Normal [facility] Comment on above: Performed By: #### U ARFX #### [facility] [address] [place] [address] Glucose mass conc >=500 Abnormal Negative [facility] Comment on above: Performed By: #### U ARFX #### [facility] [address] [place] [address] Ketones Ql (U) 5 mg/dL Abnormal Negative [facility] Comment on above: Performed By: #### U ARFX #### [facility] [address] [place] [address] Leukocytes Esterase Moderate Abnormal Negative [facility] Comment on above: Performed By: #### U ARFX #### [facility] [address] [place] [address] Nitrite Ql (U) Negative Normal Negative [facility] Comment on above: Performed By: #### U ARFX #### [facility] [address] [place] [address] pH (Bld) 8.0 Normal 5.0-9.0 [facility] Comment on above: Performed By: #### U ARFX #### [facility] [address] [place] [address] Protein mass conc (U) Negative Normal Negative [facility] Comment on above: Performed By: #### U ARFX #### [facility] [address] [place] [address] RBC 91 /[HPF] Normal 0-3 [facility] Comment on above: Performed By: #### U ARFX #### [facility] [address] [place] [address] Specific gravity Relative Density (U) 1.032 Normal 1.003-1.03 5 [facility] Comment on above: Performed By: #### U ARFX #### [facility] [address] [place] [address] Squamous Epithelial Cells 14 /[HPF] Normal 0-5 [facility] Comment on above: Performed By: #### U ARFX #### [facility] [address] [place] [address] Urobilinogen Qn (U) <2.0 Normal Negative [facility] Comment on above: Performed By: #### U ARFX #### [facility] [address] [place] [address] WBC 78 /[HPF] Normal 0-5 [facility] Comment on above: Performed By: #### U ARFX #### [facility] [address] [place] [address] Vital Signs Date Time Vital Sign Value Performing Clinician Facility 08-19-2023 19:00-0500 Diastolic blood pressure 89 mm[Hg] 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 Work Phone: [facility] 08-19-2023 19:00-0500 Heart rate 115 /min 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 Work Phone: [facility] 08-19-2023 19:00-0500 Respiratory rate 16 /min 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 Work Phone: [facility] 08-19-2023 19:00-0500 SaO2% (BldA) [Mass fraction] 98 % 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 Work Phone: [facility] 08-19-2023 19:00-0500 Systolic blood pressure 142 mm[Hg] 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 Work Phone: [facility] 08-19-2023 13:31-0500 Body height 170.18 cm 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 Work Phone: [facility] 08-19-2023 13:31-0500 Body temperature 98 [degF] 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 Work Phone: [facility] 08-19-2023 13:31-0500 Body weight 131.6 kg 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 Work Phone: [facility] 07-26-2023 07:30-0500 Body temperature 97.6 [degF] 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 Work Phone: [facility] 07-26-2023 07:30-0500 Diastolic blood pressure 75 mm[Hg] 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 Work Phone: [facility] 07-26-2023 07:30-0500 Heart rate 87 /min 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 Work Phone: [facility] 07-26-2023 07:30-0500 Respiratory rate 20 /min 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 Work Phone: [facility] 07-26-2023 07:30-0500 SaO2% (BldA) [Mass fraction] 97 % 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 Work Phone: [facility] 07-26-2023 07:30-0500 Systolic blood pressure 110 mm[Hg] 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 Work Phone: [facility] 07-24-2023 12:37-0500 Body height 170.18 cm 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 Work Phone: [facility] 07-23-2023 20:34-0500 Body weight 127.17 kg 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 Work Phone: [facility] 07-12-2023 06:21-0500 Promise to Return Kaylinn Dokken [facility] 07-12-2023 04:54-0500 Promise to Return Kaylinn Dokken [facility] 07-12-2023 04:01-0500 Diastolic blood pressure 82 mm[Hg] Kaylinn Dokken [facility] 07-12-2023 04:01-0500 Heart rate 113 /min Kaylinn Dokken [facility] 07-12-2023 04:01-0500 Hourly Rounding Kaylinn Dokken [facility] 07-12-2023 04:01-0500 Mean blood pressure 99 mm[Hg] Kaylinn Dokken [facility] 07-12-2023 04:01-0500 Promise to Return Kaylinn Dokken [facility] 07-12-2023 04:01-0500 Respiratory rate 12 /min Kaylinn Dokken [facility] 07-12-2023 04:01-0500 SaO2% (BldA) [Mass fraction] 92 % Kaylinn Dokken [facility] 07-12-2023 04:01-0500 Systolic blood pressure 134 mm[Hg] Kaylinn Dokken [facility] 07-12-2023 03:00-0500 Diastolic blood pressure 78 mm[Hg] Kaylinn Dokken [facility] 07-12-2023 03:00-0500 Heart rate 99 /min Kaylinn Dokken [facility] 07-12-2023 03:00-0500 Hourly Rounding Kaylinn Dokken [facility] 07-12-2023 03:00-0500 Mean blood pressure 98 mm[Hg] Kaylinn Dokken [facility] 07-12-2023 03:00-0500 SaO2% (BldA) [Mass fraction] 95 % Kaylinn Dokken [facility] 07-12-2023 03:00-0500 Systolic blood pressure 139 mm[Hg] Kaylinn Dokken [facility] 07-12-2023 02:22-0500 Diastolic blood pressure 74 mm[Hg] Kaylinn Dokken [facility] 07-12-2023 02:22-0500 Heart rate 101 /min Kaylinn Dokken [facility] 07-12-2023 02:22-0500 Hourly Rounding Kaylinn Dokken [facility] 07-12-2023 02:22-0500 Mean blood pressure 94 mm[Hg] Kaylinn Dokken [facility] 07-12-2023 02:22-0500 Respiratory rate 11 /min Kaylinn Dokken [facility] 07-12-2023 02:22-0500 SaO2% (BldA) [Mass fraction] 92 % Kaylinn Dokken [facility] 07-12-2023 02:22-0500 Systolic blood pressure 134 mm[Hg] Kaylinn Dokken [facility] 07-11-2023 23:51-0500 gluc 411 mg/dL Kaylinn Dokken [facility] 07-11-2023 23:24-0500 Respiratory rate 16 /min Kaylinn Dokken [facility] 07-11-2023 22:07-0500 Body temperature 98.06 [degF] Kaylinn Dokken [facility] 07-11-2023 22:07-0500 Heart rate 88 /min Kaylinn Dokken [facility] 07-11-2023 22:07-0500 Respiratory rate 16 /min Kaylinn Dokken [facility] 07-11-2023 21:12-0500 Body temperature 98.78 [degF] Sybil Muhammad [facility] 07-11-2023 21:12-0500 Heart rate 125 /min Sybil Muhammad [facility] 07-11-2023 21:12-0500 Respiratory rate 20 /min Sybil Muhammad [facility] 07-09-2023 11:05-0500 Respiratory rate 18 /min Yoly Bro MD Work Phone: [facility] 07-09-2023 10:40-0500 Diastolic blood pressure 76 mm[Hg] Yoly Bro MD Work Phone: [facility] 07-09-2023 10:40-0500 Heart rate 96 /min Yoly Bro MD Work Phone: [facility] 07-09-2023 10:40-0500 SaO2% (BldA) [Mass fraction] 96 % Yoly Bro MD Work Phone: [facility] 07-09-2023 10:40-0500 Systolic blood pressure 118 mm[Hg] Yoly Bro MD Work Phone: [facility] 07-09-2023 07:14-0500 Body temperature 97.7 [degF] Yoly Bro MD Work Phone: [facility] 07-08-2023 08:33-0500 Diastolic blood pressure 70 mm[Hg] PEE Jones Work Phone: [facility] 07-08-2023 08:33-0500 Heart rate 130 /min PEE Jones Work Phone: [facility] 07-08-2023 08:33-0500 Inhaled oxygen flow rate 2 L/min PEE Jones Work Phone: [facility] 07-08-2023 08:33-0500 Respiratory rate 20 /min 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: [facility] 07-08-2023 08:33-0500 SaO2% (BldA) [Mass fraction] 94 % 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: [facility] 07-08-2023 08:33-0500 Systolic blood pressure 147 mm[Hg] 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: [facility] 07-07-2023 16:17-0500 Body temperature 97.5 [degF] 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: [facility] 07-07-2023 14:46-0500 Body height 170.18 cm 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: [facility] 07-07-2023 14:46-0500 Body weight 124.9 kg 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: [facility] 07-01-2023 14:15-0500 Body temperature 97.9 [degF] [facility] 07-01-2023 14:15-0500 Diastolic blood pressure 64 mm[Hg] [facility] 07-01-2023 14:15-0500 Heart rate 94 /min [facility] 07-01-2023 14:15-0500 Respiratory rate 16 /min [facility]en [facility]di [facility] 07-01-2023 14:15-0500 SaO2% (BldA) [Mass fraction] 92 % [facility]en [facility]di [facility] 07-01-2023 14:15-0500 Systolic blood pressure 103 mm[Hg] Ruben Abdi MD Work Phone: [facility] 06-30-2023 10:55-0500 Body height 170.2 cm Ruben Abdi MD Work Phone: [facility] 06-30-2023 10:55-0500 Body mass index (BMI) [Ratio] 42.29 kg/m2 Ruben Abdi MD Work Phone: [facility] 06-30-2023 10:55-0500 Body weight 122.47 kg Ruben Abdi MD Work Phone: [facility] 06-07-2023 05:00-0500 Diastolic blood pressure 90 mm[Hg] [place] [facility] 06-07-2023 05:00-0500 Heart rate 111 /min [place] [facility] 06-07-2023 05:00-0500 Mean blood pressure 105 mm[Hg] [place] [facility] 06-07-2023 05:00-0500 Respiratory rate 14 /min [place] [facility] 06-07-2023 05:00-0500 SaO2% (BldA) [Mass fraction] 94 % [place] [facility] 06-07-2023 05:00-0500 Systolic blood pressure 136 mm[Hg] [place] [facility] 06-07-2023 04:30-0500 Diastolic blood pressure 84 mm[Hg] [place] [facility] 06-07-2023 04:30-0500 Heart rate 110 /min [place] [facility] 06-07-2023 04:30-0500 Mean blood pressure 98 mm[Hg] [place] [facility] 06-07-2023 04:30-0500 Respiratory rate 12 /min [place] [facility] 06-07-2023 04:30-0500 SaO2% (BldA) [Mass fraction] 96 % [facility] [place] [facility] 06-07-2023 04:30-0500 Systolic blood pressure 126 mm[Hg] [place] [facility] 06-07-2023 04:00-0500 Diastolic blood pressure 64 mm[Hg] [place] [facility] 06-07-2023 04:00-0500 Heart rate 112 /min [facility] [place] [facility] 06-07-2023 04:00-0500 Mean blood pressure 81 mm[Hg] [place] [facility] 06-07-2023 04:00-0500 Respiratory rate 16 /min [facility] [place] [facility] 06-07-2023 04:00-0500 Systolic blood pressure 116 mm[Hg] [place] [facility] 06-07-2023 03:25-0500 Heart rate 116 /min [facility] [place] [facility] 06-06-2023 23:28-0500 Heart rate 120 /min [facility] [place] [facility] 06-06-2023 23:28-0500 Respiratory rate 20 /min [facility] [place] [facility] 06-06-2023 22:25-0500 Body temperature 98.24 [degF] [facility] [place] [facility] 06-06-2023 22:25-0500 Heart rate 133 /min [facility] [place] [facility] 06-06-2023 22:25-0500 Respiratory rate 20 /min [facility] [place] [facility] 04-21-2023 16:05-0400 Body height Monica Ordaz Other [facility] [employer] Other 04-21-2023 16:05-0400 Body mass index (BMI) [Ratio] 44.54 kg/m2 Monica Ordaz Other [facility] [employer] Other 04-21-2023 16:05-0400 Body temperature 97.7 [degF] Monica Ordaz Other [facility] [employer] Other 04-21-2023 16:05-0400 Body weight 125.19 kg Monica Ordaz Other [facility] [employer] Other 04-21-2023 16:05-0400 Respiratory rate 18 /min Monica Ordaz Other [facility] [employer] Other 04-21-2023 16:05-0400 SaO2% (BldA) [Mass fraction] 98 % Monica Ordaz Other [facility] [employer] Other 04-03-2023 15:10-0400 Body temperature 97.6 [degF] 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 Work Phone: [facility] 04-03-2023 15:10-0400 Respiratory rate 16 /min 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 Work Phone: [facility] 04-03-2023 15:10-0400 SaO2% (BldA) [Mass fraction] 95 % 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 Work Phone: [facility] 04-03-2023 07:30-0400 Diastolic blood pressure 98 mm[Hg] 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 Work Phone: [facility] 04-03-2023 07:30-0400 Heart rate 62 /min 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 Work Phone: [facility] 04-03-2023 07:30-0400 Systolic blood pressure 149 mm[Hg] 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 Work Phone: [facility] 03-30-2023 14:52-0400 Body height 170.18 cm 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 Work Phone: [facility] 03-30-2023 09:00-0400 Body weight 117.02 kg 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 Work Phone: [facility] 02-01-2023 07:30-0400 Body temperature 98 [degF] 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 Work Phone: [facility] 02-01-2023 07:30-0400 Diastolic blood pressure 90 mm[Hg] 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 Work Phone: [facility] 02-01-2023 07:30-0400 Heart rate 91 /min 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 Work Phone: [facility] 02-01-2023 07:30-0400 Respiratory rate 16 /min 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 Work Phone: [facility] 02-01-2023 07:30-0400 SaO2% (BldA) [Mass fraction] 93 % 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 Work Phone: [facility] 02-01-2023 07:30-0400 Systolic blood pressure 134 mm[Hg] 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 Work Phone: [facility] 01-29-2023 15:41-0400 Body height 170.18 cm 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 Work Phone: [facility] 01-29-2023 02:43-0400 Body weight 122.46 kg 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 Work Phone: [facility] 01-29-2023 00:42-0400 Diastolic blood pressure 69 mm[Hg] 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 Work Phone: [facility] 01-29-2023 00:42-0400 Heart rate 97 /min 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 Work Phone: [facility] 01-29-2023 00:42-0400 Respiratory rate 19 /min 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 Work Phone: [facility] 01-29-2023 00:42-0400 SaO2% (BldA) [Mass fraction] 96 % 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 Work Phone: [facility] 01-29-2023 00:42-0400 Systolic blood pressure 124 mm[Hg] 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 Work Phone: [facility] 01-28-2023 22:04-0400 Body temperature 97.7 [degF] 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 Work Phone: [facility] 01-28-2023 20:06-0400 Body height 170.18 cm 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 Work Phone: [facility] 01-28-2023 20:06-0400 Body weight 122.46 kg 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 Work Phone: [facility] 01-26-2023 21:20-0400 Diastolic blood pressure 84 mm[Hg] [place] [facility] 01-26-2023 21:20-0400 Heart rate 94 /min [facility] [place] [facility] 01-26-2023 21:20-0400 Hourly Rounding [facility] [place] [facility] 01-26-2023 21:20-0400 Promise to Return [facility] [place] [facility] 01-26-2023 21:20-0400 Respiratory rate 16 /min [facility] [place] [facility] 01-26-2023 21:20-0400 SaO2% (BldA) [Mass fraction] 98 % [facility] [place] [facility] 01-26-2023 21:20-0400 Systolic blood pressure 131 mm[Hg] [facility] [place] [facility] 01-26-2023 20:20-0400 Diastolic blood pressure 79 mm[Hg] [facility] [place] [facility] 01-26-2023 20:20-0400 Heart rate 98 /min [facility] [place] [facility] 01-26-2023 20:20-0400 Hourly Rounding [facility] [place] [facility] 01-26-2023 20:20-0400 Mean blood pressure 95 mm[Hg] [facility] [place] [facility] 01-26-2023 20:20-0400 Promise to Return [place] [facility] 01-26-2023 20:20-0400 Respiratory rate 16 /min [facility] 01-26-2023 20:20-0400 SaO2% (BldA) [Mass fraction] 98 % [facility] [place] [facility] 01-26-2023 20:20-0400 Systolic blood pressure 128 mm[Hg] [facility] [place] [facility] 01-26-2023 19:21-0400 Body temperature 98.24 [degF] [facility] [place] [facility] 01-26-2023 19:21-0400 Diastolic blood pressure 81 mm[Hg] [facility] [place] [facility] 01-26-2023 19:21-0400 Heart rate 114 /min [facility] [place] [facility] 01-26-2023 19:21-0400 Respiratory rate 16 /min [facility] 01-26-2023 19:21-0400 SaO2% (BldA) [Mass fraction] 98 % [facility] [place] [facility] 01-26-2023 19:21-0400 Systolic blood pressure 130 mm[Hg] [facility] [place] [facility] 01-22-2023 07:27-0400 Body temperature 97.3 [degF] 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 Work Phone: [facility] 01-22-2023 07:27-0400 Diastolic blood pressure 97 mm[Hg] 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 Work Phone: [facility] 01-22-2023 07:27-0400 Heart rate 89 /min 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 Work Phone: [facility] 01-22-2023 07:27-0400 Respiratory rate 16 /min 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 Work Phone: [facility] 01-22-2023 07:27-0400 SaO2% (BldA) [Mass fraction] 95 % 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 Work Phone: [facility] 01-22-2023 07:27-0400 Systolic blood pressure 150 mm[Hg] 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 Work Phone: [facility] 01-19-2023 14:59-0400 Body height 170.18 cm 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 Work Phone: [facility] 01-19-2023 09:00-0400 Body weight 121.56 kg 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 Work Phone: [facility] 01-03-2023 07:30-0400 Body temperature 97.9 [degF] 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 Work Phone: [facility] 01-03-2023 07:30-0400 Diastolic blood pressure 85 mm[Hg] 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 Work Phone: [facility] 01-03-2023 07:30-0400 Heart rate 90 /min 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 Work Phone: [facility] 01-03-2023 07:30-0400 Respiratory rate 18 /min 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 Work Phone: [facility] 01-03-2023 07:30-0400 SaO2% (BldA) [Mass fraction] 94 % 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 Work Phone: [facility] 01-03-2023 07:30-0400 Systolic blood pressure 124 mm[Hg] 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 Work Phone: [facility] 12-31-2022 13:56-0400 Body height 170.18 cm 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 Work Phone: [facility] 12-31-2022 03:36-0400 Body weight 123.15 kg 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 Work Phone: [facility] 12-17-2022 16:24-0400 Body temperature 97.7 [degF] 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 Work Phone: [facility] 12-17-2022 16:24-0400 Diastolic blood pressure 64 mm[Hg] 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 Work Phone: [facility] 12-17-2022 16:24-0400 Heart rate 90 /min 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 Work Phone: [facility] 12-17-2022 16:24-0400 Respiratory rate 18 /min 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 Work Phone: [facility] 12-17-2022 16:24-0400 SaO2% (BldA) [Mass fraction] 98 % 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 Work Phone: [facility] 12-17-2022 16:24-0400 Systolic blood pressure 117 mm[Hg] 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 Work Phone: [facility] 12-16-2022 09:01-0400 Body height 170.18 cm 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 Work Phone: [facility] 12-15-2022 08:51-0400 Body weight 120.2 kg 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 Work Phone: [facility] 12-10-2022 13:45-0400 Body temperature 98.1 [degF] 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 Work Phone: [facility] 12-10-2022 13:45-0400 Diastolic blood pressure 69 mm[Hg] 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 Work Phone: [facility] 12-10-2022 13:45-0400 Heart rate 71 /min 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 Work Phone: [facility] 12-10-2022 13:45-0400 Respiratory rate 18 /min 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 Work Phone: [facility] 12-10-2022 13:45-0400 SaO2% (BldA) [Mass fraction] 94 % 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 Work Phone: [facility] 12-10-2022 13:45-0400 Systolic blood pressure 116 mm[Hg] 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 Work Phone: [facility] 12-08-2022 16:01-0400 Body height 170.18 cm 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 Work Phone: [facility] 12-08-2022 09:00-0400 Body weight 123.37 kg 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 Work Phone: [facility] 12-05-2022 05:29-0400 Diastolic blood pressure 52 mm[Hg] Skye Jones Other Phone: [facility] 12-05-2022 05:29-0400 Heart rate 78 /min Skye Jones Other Phone: [facility] 12-05-2022 05:29-0400 Respiratory rate 16 /min Skye Jones Other Phone: [facility] 12-05-2022 05:29-0400 SaO2% (BldA) [Mass fraction] 95 % Skye Jones Other Phone: [facility] 12-05-2022 05:29-0400 Systolic blood pressure 103 mm[Hg] Skye Jones Other Phone: [facility] 11-27-2022 22:49-0400 Diastolic blood pressure 100 mm[Hg] 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 Work Phone: [facility] 11-27-2022 22:49-0400 Heart rate 111 /min 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 Work Phone: [facility] 11-27-2022 22:49-0400 Respiratory rate 20 /min 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 Work Phone: [facility] 11-27-2022 22:49-0400 SaO2% (BldA) [Mass fraction] 96 % 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 Work Phone: [facility] 11-27-2022 22:49-0400 Systolic blood pressure 149 mm[Hg] 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 Work Phone: [facility] 11-27-2022 19:48-0400 Body height 170.18 cm 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 Work Phone: [facility] 11-27-2022 19:48-0400 Body temperature 98.5 [degF] 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 Work Phone: [facility] 11-27-2022 19:48-0400 Body weight 121.5 kg 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 Work Phone: [facility] 11-22-2022 23:13-0400 Diastolic blood pressure 70 mm[Hg] 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 Work Phone: [facility] 11-22-2022 23:13-0400 Heart rate 107 /min 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 Work Phone: [facility] 11-22-2022 23:13-0400 Respiratory rate 17 /min 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 Work Phone: [facility] 11-22-2022 23:13-0400 SaO2% (BldA) [Mass fraction] 94 % 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 Work Phone: [facility] 11-22-2022 23:13-0400 Systolic blood pressure 141 mm[Hg] 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 Work Phone: [facility] 11-22-2022 21:10-0400 Body temperature 98.1 [degF] 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 Work Phone: [facility] 11-22-2022 21:09-0400 Body height 170.18 cm 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 Work Phone: [facility] 11-22-2022 21:09-0400 Body weight 122.15 kg 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 Work Phone: [facility] 11-03-2022 14:00-0400 Diastolic blood pressure 84 mm[Hg] [facility] [place] [facility] 11-03-2022 14:00-0400 Heart rate 94 /min [facility] [place] [facility] 11-03-2022 14:00-0400 Hourly Rounding [facility] 11-03-2022 14:00-0400 Mean blood pressure 107 mm[Hg] [facility] [place] [facility] 11-03-2022 14:00-0400 Respiratory rate 18 /min [facility] [place] [facility] 11-03-2022 14:00-0400 SaO2% (BldA) [Mass fraction] 96 % [facility] [place] [facility] 11-03-2022 14:00-0400 Systolic blood pressure 152 mm[Hg] [facility] 11-03-2022 01:15-0400 Hourly Rounding [facility] 11-03-2022 00:37-0400 Diastolic blood pressure 82 mm[Hg] [facility] [place] [facility] 11-03-2022 00:37-0400 Heart rate 90 /min [facility] [place] [facility] 11-03-2022 00:37-0400 Hourly Rounding [facility] 11-03-2022 00:37-0400 Mean blood pressure 105 mm[Hg] [facility] [place] [facility] 11-03-2022 00:37-0400 Respiratory rate 18 /min [facility] 11-03-2022 00:37-0400 SaO2% (BldA) [Mass fraction] 96 % [facility] [place] [facility] 11-03-2022 00:37-0400 Systolic blood pressure 150 mm[Hg] [facility] [place] [facility] 11-02-2022 23:58-0400 Diastolic blood pressure 102 mm[Hg] [facility] [place] [facility] 11-02-2022 23:58-0400 Heart rate 97 /min [facility] [place] [facility] 11-02-2022 23:58-0400 Mean blood pressure 115 mm[Hg] [facility] [place] [facility] 11-02-2022 23:58-0400 Respiratory rate 18 /min [facility] 11-02-2022 23:58-0400 SaO2% (BldA) [Mass fraction] 95 % [facility] [place] [facility] 11-02-2022 23:58-0400 Systolic blood pressure 142 mm[Hg] [facility] [place] [facility] 11-02-2022 21:34-0400 Body temperature 98.42 [degF] [facility] 10-30-2022 13:33-0400 Heart rate 72 /min 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 Work Phone: [facility] 10-30-2022 13:16-0400 Body height 170.18 cm 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 Work Phone: [facility] 10-30-2022 13:16-0400 Body temperature 98.5 [degF] 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 Work Phone: [facility] 10-30-2022 13:16-0400 Body weight 117.93 kg 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 Work Phone: [facility] 10-30-2022 13:16-0400 Diastolic blood pressure 56 mm[Hg] 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 Work Phone: [facility] 10-30-2022 13:16-0400 Respiratory rate 18 /min 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 Work Phone: [facility] 10-30-2022 13:16-0400 SaO2% (BldA) [Mass fraction] 95 % 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 Work Phone: [facility] 10-30-2022 13:16-0400 Systolic blood pressure 112 mm[Hg] 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 Work Phone: [facility] 10-28-2022 18:54-0400 Diastolic blood pressure 73 mm[Hg] 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 Work Phone: [facility] 10-28-2022 18:54-0400 Heart rate 78 /min 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 Work Phone: [facility] 10-28-2022 18:54-0400 Respiratory rate 20 /min 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 Work Phone: [facility] 10-28-2022 18:54-0400 SaO2% (BldA) [Mass fraction] 98 % 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 Work Phone: [facility] 10-28-2022 18:54-0400 Systolic blood pressure 116 mm[Hg] 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 Work Phone: [facility] 10-28-2022 16:00-0400 Body temperature 97.7 [degF] 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 Work Phone: [facility] 10-28-2022 15:54-0400 Body height 170.18 cm 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: [facility] 10-28-2022 15:54-0400 Body weight 117.93 kg 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: [facility] 10-27-2022 22:01-0400 Diastolic blood pressure 91 mm[Hg] [facility] [place] [facility] 10-27-2022 22:01-0400 Heart rate 101 /min [facility] [place] [facility] 10-27-2022 22:01-0400 Mean blood pressure 116 mm[Hg] [facility] [place] [facility] 10-27-2022 22:01-0400 SaO2% (BldA) [Mass fraction] 96 % [facility] [place] [facility] 10-27-2022 22:01-0400 Systolic blood pressure 165 mm[Hg] [facility] [place] [facility] 10-27-2022 21:05-0400 Diastolic blood pressure 104 mm[Hg] [facility] [place] [facility] 10-27-2022 21:05-0400 Heart rate 111 /min [facility] [place] [facility] 10-27-2022 21:05-0400 Mean blood pressure 120 mm[Hg] [facility] [place] [facility] 10-27-2022 21:05-0400 SaO2% (BldA) [Mass fraction] 95 % [facility] [place] [facility] 10-27-2022 21:05-0400 Systolic blood pressure 152 mm[Hg] [facility] [place] [facility] 10-27-2022 20:03-0400 Body temperature 98.06 [degF] [facility] [place] [facility] 10-27-2022 20:03-0400 Diastolic blood pressure 83 mm[Hg] [facility] 10-27-2022 20:03-0400 Heart rate 119 /min [facility] 10-27-2022 20:03-0400 Respiratory rate 20 /min [facility] 10-27-2022 20:03-0400 SaO2% (BldA) [Mass fraction] 97 % [facility] 10-27-2022 20:03-0400 Systolic blood pressure 138 mm[Hg] [facility] 10-19-2022 17:55-0400 Diastolic blood pressure 106 mm[Hg] [facility] 10-19-2022 17:55-0400 Heart rate 82 /min [facility] 10-19-2022 17:55-0400 Mean blood pressure 116 mm[Hg] [facility] 10-19-2022 17:55-0400 Respiratory rate 15 /min [facility] 10-19-2022 17:55-0400 SaO2% (BldA) [Mass fraction] 98 % [facility] 10-19-2022 17:55-0400 Systolic blood pressure 137 mm[Hg] [facility] 10-19-2022 14:36-0400 Body temperature 97.88 [degF] [facility] 10-19-2022 14:36-0400 Diastolic blood pressure 91 mm[Hg] [facility] 10-19-2022 14:36-0400 Heart rate 91 /min [facility] 10-19-2022 14:36-0400 Respiratory rate 18 /min [facility] 10-19-2022 14:36-0400 SaO2% (BldA) [Mass fraction] 98 % [facility] 10-19-2022 14:36-0400 Systolic blood pressure 155 mm[Hg] [facility] 10-09-2022 23:22-0400 Diastolic blood pressure 97 mm[Hg] Debbei Vivek [facility] 10-09-2022 23:22-0400 Systolic blood pressure 130 mm[Hg] Debbie Vivek [facility] 10-09-2022 22:22-0400 Diastolic blood pressure 53 mm[Hg] Debbie Vivek [facility] 10-09-2022 22:22-0400 Heart rate 106 /min Debbie Vivek [facility] 10-09-2022 22:22-0400 Mean blood pressure 78 mm[Hg] Debbie Vivek [facility] 10-09-2022 22:22-0400 Respiratory rate 17 /min Debbie Vivek [facility] 10-09-2022 22:22-0400 SaO2% (BldA) [Mass fraction] 95 % Debbie Vivek [facility] 10-09-2022 22:22-0400 Systolic blood pressure 129 mm[Hg] Debbie Vivek [facility] 10-09-2022 21:38-0400 Diastolic blood pressure 85 mm[Hg] Debbie Vivek [facility] 10-09-2022 21:38-0400 Heart rate 117 /min Debbie Vivek [facility] 10-09-2022 21:38-0400 Mean blood pressure 110 mm[Hg] Debbie Vivek [facility] 10-09-2022 21:38-0400 Respiratory rate 18 /min Debbie Vivek [facility] 10-09-2022 21:38-0400 SaO2% (BldA) [Mass fraction] 97 % Debbie Vivek [facility] 10-09-2022 21:38-0400 Systolic blood pressure 160 mm[Hg] Debbie Vivek [facility] 10-09-2022 20:30-0400 Heart rate 117 /min Debbie Vivek [facility] 10-09-2022 20:30-0400 Mean blood pressure 136 mm[Hg] Debbie Vivek [facility] 10-09-2022 20:30-0400 Respiratory rate 15 /min Debbie Vivek [facility] 10-09-2022 20:30-0400 SaO2% (BldA) [Mass fraction] 97 % Debbie Vivek [facility] 10-09-2022 19:50-0400 Body temperature 98.06 [degF] Debbie Doyle [facility] 10-09-2022 19:50-0400 Heart rate 110 /min Debbie Vivek [facility] 09-21-2022 23:00-0400 Body temperature 99.68 [degF] Kaylinn Dokken [facility] 09-21-2022 23:00-0400 Diastolic blood pressure 101 mm[Hg] Kaylinn Dokken [facility] 09-21-2022 23:00-0400 Heart rate 118 /min Kaylinn Dokken [facility] 09-21-2022 23:00-0400 Respiratory rate 16 /min Sybil Muhammad [facility] 09-21-2022 23:00-0400 SaO2% (BldA) [Mass fraction] 97 % Sybil Muhammad [facility] 09-21-2022 23:00-0400 Systolic blood pressure 150 mm[Hg] Sybil Muhammad [facility] 09-21-2022 21:03-0400 Body height 170.18 cm 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 Work Phone: [facility] 09-21-2022 21:03-0400 Body temperature 97.8 [degF] 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 Work Phone: [facility] 09-21-2022 21:03-0400 Body weight 120.6 kg 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 Work Phone: [facility] 09-21-2022 21:03-0400 Diastolic blood pressure 87 mm[Hg] 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 Work Phone: [facility] 09-21-2022 21:03-0400 Heart rate 125 /min 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 Work Phone: [facility] 09-21-2022 21:03-0400 Respiratory rate 21 /min 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 Work Phone: [facility] 09-21-2022 21:03-0400 SaO2% (BldA) [Mass fraction] 96 % 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 Work Phone: [facility] 09-21-2022 21:03-0400 Systolic blood pressure 141 mm[Hg] 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 Work Phone: [facility] 09-17-2022 02:42-0400 Heart rate 121 /min Skye Jones OAKES MACHINE OPERATOR - [employer] Work Phone: [facility] [employer] 09-17-2022 02:42-0400 SaO2% (BldA) [Mass fraction] 99 % Skye Mariscal CNP Work Phone: [facility] 09-17-2022 01:19-0400 Diastolic blood pressure 91 mm[Hg] Skye Jones APRN - JOLYNN Work Phone: [facility] 09-17-2022 01:19-0400 Systolic blood pressure 122 mm[Hg] Skye Jones APRN - JOLYNN Work Phone: [facility] [employer] 09-17-2022 01:16-0400 Body height 170.2 cm Skye Mariscal CNP Work Phone: [facility] 09-17-2022 01:16-0400 Body mass index (BMI) [Ratio] 40.72 kg/m2 Skye Mariscal CNP Work Phone: [facility] 09-17-2022 01:16-0400 Body temperature 98.6 [degF] Skye Mariscal CNP Work Phone: [facility] 09-17-2022 01:16-0400 Body weight 117.94 kg Skye Mariscal CNP Work Phone: [facility] 09-17-2022 01:16-0400 Respiratory rate 18 /min Skye Mariscal CNP Work Phone: [facility] 09-08-2022 19:52-0400 Body temperature 98.42 [degF] [facility] [place] [facility] 09-08-2022 19:52-0400 Diastolic blood pressure 71 mm[Hg] [facility] [place] [facility] 09-08-2022 19:52-0400 Heart rate 115 /min [facility] [place] [facility] 09-08-2022 19:52-0400 Respiratory rate 18 /min [facility] [place] [facility] 09-08-2022 19:52-0400 SaO2% (BldA) [Mass fraction] 97 % [facility] [place] [facility] 09-08-2022 19:52-0400 Systolic blood pressure 123 mm[Hg] [facility] [place] [facility] 09-06-2022 22:38-0500 Diastolic blood pressure 75 mm[Hg] 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 Work Phone: [facility] 09-06-2022 22:38-0500 Heart rate 94 /min 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 Work Phone: [facility] 09-06-2022 22:38-0500 Respiratory rate 20 /min 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 Work Phone: [facility] 09-06-2022 22:38-0500 SaO2% (BldA) [Mass fraction] 94 % 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 Work Phone: [facility] 09-06-2022 22:38-0500 Systolic blood pressure 111 mm[Hg] 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 Work Phone: [facility] 09-06-2022 20:18-0500 Body height 170.18 cm 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 Work Phone: [facility] 09-06-2022 20:18-0500 Body temperature 98.2 [degF] 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 Work Phone: [facility] 09-06-2022 20:18-0500 Body weight 122.35 kg 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 Work Phone: [facility] 08-29-2022 00:00-0500 Heart rate 106 /min 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 Work Phone: [facility] 08-29-2022 00:00-0500 Respiratory rate 18 /min 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 Work Phone: [facility] 08-29-2022 00:00-0500 SaO2% (BldA) [Mass fraction] 98 % 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 Work Phone: [facility] 08-28-2022 22:09-0500 Diastolic blood pressure 88 mm[Hg] 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 Work Phone: [facility] 08-28-2022 22:09-0500 Systolic blood pressure 158 mm[Hg] 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 Work Phone: [facility] 08-28-2022 20:09-0500 Body height 170.18 cm 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 Work Phone: [facility] 08-28-2022 20:09-0500 Body temperature 99.4 [degF] 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 Work Phone: [facility] 08-28-2022 20:09-0500 Body weight 119.55 kg 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 Work Phone: [facility] 08-25-2022 00:13-0500 Diastolic blood pressure 92 mm[Hg] Skye Jones OAKES MACHINE OPERATOR - [employer] Work Phone: [facility] 08-25-2022 00:13-0500 Systolic blood pressure 158 mm[Hg] Skye Jones OAKES MACHINE OPERATOR - [employer] [facility] 08-25-2022 00:11-0500 Respiratory rate 20 /min Skye Jones OAKES MACHINE OPERATOR - [employer] Work Phone: [facility] 08-25-2022 00:00-0500 SaO2% (BldA) [Mass fraction] 96 % Skye Jones OAKES MACHINE OPERATOR - [employer] Work Phone: [facility] 08-24-2022 20:11-0500 Body height 170.2 cm Skye Jones OAKES MACHINE OPERATOR - [employer] Work Phone: [facility] 08-24-2022 20:11-0500 Body mass index (BMI) [Ratio] 40.72 kg/m2 Skye Jones OAKES MACHINE OPERATOR - [employer] Work Phone: [facility] 08-24-2022 20:11-0500 Body temperature 98.2 [degF] Skye Jones OAKES MACHINE OPERATOR - [employer] Work Phone: [facility] 08-24-2022 20:11-0500 Body weight 117.94 kg Skye Jones OAKES MACHINE OPERATOR - [employer] Work Phone: [facility] 08-24-2022 20:11-0500 Heart rate 135 /min Skye Jones OAKES MACHINE OPERATOR - [employer] Work Phone: [facility] 08-23-2022 00:36-0500 Diastolic blood pressure 80 mm[Hg] 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 Work Phone: [facility] 08-23-2022 00:36-0500 Heart rate 120 /min 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 Work Phone: [facility] 08-23-2022 00:36-0500 Respiratory rate 18 /min 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 Work Phone: [facility] 08-23-2022 00:36-0500 SaO2% (BldA) [Mass fraction] 96 % 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 Work Phone: [facility] 08-23-2022 00:36-0500 Systolic blood pressure 153 mm[Hg] 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 Work Phone: [facility] 08-22-2022 23:47-0500 Body temperature 98.9 [degF] 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 Work Phone: [facility] 08-22-2022 22:24-0500 Body height 170.18 cm PEE Jones Work Phone: [facility] 08-22-2022 22:24-0500 Body weight 119 kg PEE Jones Work Phone: [facility] 08-18-2022 22:00-0500 Diastolic blood pressure 93 mm[Hg] [facility] [place] [facility] 08-18-2022 22:00-0500 Heart rate 110 /min [facility] [place] [facility] 08-18-2022 22:00-0500 Respiratory rate 17 /min [facility] [place] [facility] 08-18-2022 22:00-0500 Systolic blood pressure 149 mm[Hg] [facility] [place] [facility] 08-18-2022 19:10-0500 Body temperature 98.6 [degF] [facility] [place] [facility] 08-18-2022 19:10-0500 Diastolic blood pressure 76 mm[Hg] [facility] [place] [facility] 08-18-2022 19:10-0500 Heart rate 118 /min [facility] [place] [facility] 08-18-2022 19:10-0500 Respiratory rate 18 /min [facility] [place] 08-18-2022 19:10-0500 SaO2% (BldA) [Mass fraction] 97 % [facility] [place] [facility] 08-18-2022 19:10-0500 Systolic blood pressure 119 mm[Hg] [facility] [place] [facility] 08-17-2022 06:53-0500 Diastolic blood pressure 59 mm[Hg] OAKES MACHINE OPERATOR Skye Haileach Work Phone: [facility] 08-17-2022 06:53-0500 Heart rate 83 /min 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 Work Phone: [facility] 08-17-2022 06:53-0500 Respiratory rate 18 /min 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 Work Phone: [facility] 08-17-2022 06:53-0500 SaO2% (BldA) [Mass fraction] 96 % 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 Work Phone: [facility] 08-17-2022 06:53-0500 Systolic blood pressure 128 mm[Hg] 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 Work Phone: [facility] 08-17-2022 03:14-0500 Body temperature 98.2 [degF] 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 Work Phone: [facility] 08-17-2022 03:13-0500 Body height 170.18 cm 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 Work Phone: [facility] 08-17-2022 03:13-0500 Body weight 119 kg OAKES MACHINE OPERATORAdrien Zendejasle Jones Work Phone: [facility] 08-13-2022 23:49-0500 Diastolic blood pressure 88 mm[Hg] Rickey Davis MD Work Phone: [facility] [employer] 08-13-2022 23:49-0500 Heart rate 100 /min Rickey Davis MD Work Phone: [facility] [employer] 08-13-2022 23:49-0500 Respiratory rate 16 /min Rickey Davis MD Work Phone: [facility] [employer] 08-13-2022 23:49-0500 SaO2% (BldA) [Mass fraction] 100 % Rickey Davis MD Work Phone: [facility] [employer] 08-13-2022 23:49-0500 Systolic blood pressure 120 mm[Hg] Rickey Davis MD Work Phone: [facility] 08-13-2022 20:15-0500 Body height 170.1 cm Skye Jones Other Phone: [facility] 08-13-2022 20:15-0500 Body temperature 99.14 [degF] Skye Jones Other Phone: [facility] 08-13-2022 20:15-0500 Body weight 115 kg Skye Jones Other Phone: [facility] 08-13-2022 20:15-0500 Diastolic blood pressure 123 mm[Hg] Skye Jones Other Phone: [facility] 08-13-2022 20:15-0500 Heart rate 128 /min Skye Jones Other Phone: [facility] 08-13-2022 20:15-0500 Respiratory rate 18 /min Skye Jones Other Phone: [facility] 08-13-2022 20:15-0500 SaO2% (BldA) [Mass fraction] 96 % Skye Jones Other Phone: [facility] 08-13-2022 20:15-0500 Systolic blood pressure 189 mm[Hg] Skye Jones Other Phone: [facility] 08-13-2022 19:46-0500 Body height 170.2 cm Rickey Davis MD Work Phone: [facility] [employer] 08-13-2022 19:46-0500 Body mass index (BMI) [Ratio] 39.16 kg/m2 Rickey Davis MD Work Phone: [facility] [employer] [facility] 08-13-2022 19:46-0500 Body temperature 98.6 [degF] Rickey Davis MD Work Phone: [facility] 08-13-2022 19:46-0500 Body weight 113.4 kg Rickey Davis MD Work Phone: [facility] 08-08-2022 21:56-0500 Diastolic blood pressure 104 mm[Hg] [facility] 08-08-2022 21:56-0500 Heart rate 99 /min [facility] 08-08-2022 21:56-0500 Mean blood pressure 118 mm[Hg] [facility] 08-08-2022 21:56-0500 Respiratory rate 19 /min [facility] 08-08-2022 21:56-0500 SaO2% (BldA) [Mass fraction] 97 % [facility] 08-08-2022 21:56-0500 Systolic blood pressure 145 mm[Hg] [facility] 08-08-2022 21:18-0500 Diastolic blood pressure 92 mm[Hg] [facility] 08-08-2022 21:18-0500 Heart rate 98 /min [facility] 08-08-2022 21:18-0500 Mean blood pressure 104 mm[Hg] [facility] 08-08-2022 21:18-0500 Respiratory rate 20 /min [facility] 08-08-2022 21:18-0500 SaO2% (BldA) [Mass fraction] 96 % [facility] 08-08-2022 21:18-0500 Systolic blood pressure 129 mm[Hg] [facility] 08-08-2022 20:54-0500 Diastolic blood pressure 97 mm[Hg] [facility] 08-08-2022 20:54-0500 Heart rate 102 /min [facility] 08-08-2022 20:54-0500 Mean blood pressure 114 mm[Hg] [facility] 08-08-2022 20:54-0500 Respiratory rate 19 /min [facility] 08-08-2022 20:54-0500 SaO2% (BldA) [Mass fraction] 97 % [facility] 08-08-2022 20:54-0500 Systolic blood pressure 147 mm[Hg] [facility] 08-08-2022 19:32-0500 Body temperature 98.96 [degF] [facility] 08-08-2022 19:32-0500 Heart rate 108 /min [facility] 08-02-2022 14:00-0500 Diastolic blood pressure 77 mm[Hg] 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 Work Phone: [facility] 08-02-2022 14:00-0500 Heart rate 106 /min 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 Work Phone: [facility] 08-02-2022 14:00-0500 Respiratory rate 18 /min 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 Work Phone: [facility] 08-02-2022 14:00-0500 SaO2% (BldA) [Mass fraction] 100 % 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 Work Phone: [facility] 08-02-2022 14:00-0500 Systolic blood pressure 132 mm[Hg] 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 Work Phone: [facility] 08-02-2022 00:34-0500 Body height 170.18 cm 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 Work Phone: [facility] 08-02-2022 00:34-0500 Body temperature 97.6 [degF] 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 Work Phone: [facility] 08-02-2022 00:34-0500 Body weight 120.2 kg 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 Work Phone: [facility] 07-22-2022 03:52-0500 Diastolic blood pressure 69 mm[Hg] Skye Jones Other Phone: [facility] 07-22-2022 03:52-0500 Heart rate 88 /min Skye Jones Other Phone: [facility] 07-22-2022 03:52-0500 Respiratory rate 16 /min Skye Jones Other Phone: [facility] 07-22-2022 03:52-0500 SaO2% (BldA) [Mass fraction] 99 % Skye Jones Other Phone: [facility] 07-22-2022 03:52-0500 Systolic blood pressure 137 mm[Hg] Skye Jones Other Phone: [facility] 07-17-2022 22:41-0500 Heart rate 108 /min [facility] 07-17-2022 22:41-0500 SaO2% (BldA) [Mass fraction] 94 % [facility] 07-17-2022 22:35-0500 Diastolic blood pressure 99 mm[Hg] [facility] 07-17-2022 22:35-0500 Heart rate 108 /min [facility] 07-17-2022 22:35-0500 Mean blood pressure 115 mm[Hg] [facility] 07-17-2022 22:35-0500 SaO2% (BldA) [Mass fraction] 92 % [facility] 07-17-2022 22:35-0500 Systolic blood pressure 147 mm[Hg] [facility] 07-17-2022 22:26-0500 Heart rate 107 /min [facility] 07-17-2022 22:26-0500 SaO2% (BldA) [Mass fraction] 94 % [facility] 07-17-2022 22:16-0500 Diastolic blood pressure 102 mm[Hg] [facility] 07-17-2022 22:16-0500 Heart rate 121 /min [facility] 07-17-2022 22:16-0500 Systolic blood pressure 155 mm[Hg] [facility] 07-17-2022 20:38-0500 Diastolic blood pressure 93 mm[Hg] [facility] 07-17-2022 20:38-0500 Mean blood pressure 111 mm[Hg] [facility] 07-17-2022 20:38-0500 Systolic blood pressure 147 mm[Hg] [facility] 07-17-2022 19:39-0500 Body temperature 98.06 [degF] [facility] 07-17-2022 19:39-0500 Heart rate 130 /min [facility] 07-17-2022 19:39-0500 Respiratory rate 18 /min [facility] 07-11-2022 00:45-0500 Diastolic blood pressure 73 mm[Hg] Skye Jones APRN - WASTE HAND Work Phone: [facility] 07-11-2022 00:45-0500 Heart rate 99 /min Skye Jones OAKES MACHINE OPERATOR - [employer]AST[employer] Work Phone: [facility] 07-11-2022 00:45-0500 Respiratory rate 18 /min Skye Jones OAKES MACHINE OPERATOR - [employer] Work Phone: [facility] 07-11-2022 00:45-0500 SaO2% (BldA) [Mass fraction] 98 % Skye Jones OAKES MACHINE OPERATOR - [employer]AST[employer] Work Phone: [facility] 07-11-2022 00:45-0500 Systolic blood pressure 145 mm[Hg] Skye Jones OAKES MACHINE OPERATOR - [employer]ASTE [employer] Work Phone: [facility] 07-10-2022 20:00-0500 Body mass index (BMI) [Ratio] 39.16 kg/m2 Skye Jones OAKES MACHINE OPERATOR - [employer] Work Phone: [facility] 07-10-2022 20:00-0500 Body temperature 98.1 [degF] Skye Jones OAKES MACHINE OPERATOR - [employer]ASTE [employer] Work Phone: [facility] 07-10-2022 20:00-0500 Body weight 113.4 kg Skye Jones OAKES MACHINE OPERATOR - [employer]ASTE [employer] Work Phone: [facility] 07-04-2022 02:11-0500 Diastolic blood pressure 103 mm[Hg] 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 Work Phone: [facility] 07-04-2022 02:11-0500 Heart rate 112 /min 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 Work Phone: [facility] 07-04-2022 02:11-0500 Respiratory rate 22 /min 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 Work Phone: [facility] 07-04-2022 02:11-0500 SaO2% (BldA) [Mass fraction] 97 % 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 Work Phone: [facility] 07-04-2022 02:11-0500 Systolic blood pressure 157 mm[Hg] PEE Jones Work Phone: [facility] 07-03-2022 22:44-0500 Body height 170.18 cm PEE Jones Work Phone: [facility] 07-03-2022 22:44-0500 Body temperature 98.7 [degF] PEE Jones Work Phone: [facility] 07-03-2022 22:44-0500 Body weight 117.6 kg 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: [facility] 06-19-2022 02:28-0500 Nursing Progress Note Reason Other: discharge instructions given. pt verbalized understanding. left with family [facility] 06-19-2022 02:19-0500 Diastolic blood pressure 78 mm[Hg] [facility] 06-19-2022 02:19-0500 Heart rate 104 /min [facility] 06-19-2022 02:19-0500 Respiratory rate 20 /min [facility] 06-19-2022 02:19-0500 SaO2% (BldA) [Mass fraction] 96 % [facility] 06-19-2022 02:19-0500 Systolic blood pressure 154 mm[Hg] [facility] 06-19-2022 01:42-0500 Diastolic blood pressure 79 mm[Hg] [facility] 06-19-2022 01:42-0500 Heart rate 105 /min [facility] 06-19-2022 01:42-0500 Respiratory rate 20 /min [facility] 06-19-2022 01:42-0500 SaO2% (BldA) [Mass fraction] 98 % [facility] 06-19-2022 01:42-0500 Systolic blood pressure 156 mm[Hg] [facility] 06-19-2022 00:40-0500 Heart rate 105 /min [facility] 06-19-2022 00:40-0500 Respiratory rate 20 /min [facility] 06-19-2022 00:40-0500 SaO2% (BldA) [Mass fraction] 99 % [facility] 06-19-2022 00:16-0500 Nursing Progress Note Reason Other: iv started pt refused tylenol and zofran. fluids infusing [facility] 06-18-2022 22:49-0500 Body temperature 98.06 [degF] [facility] 06-18-2022 22:49-0500 Diastolic blood pressure 86 mm[Hg] [facility] 06-18-2022 22:49-0500 Systolic blood pressure 127 mm[Hg] [facility] 06-08-2022 23:44-0500 Diastolic blood pressure 55 mm[Hg] 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 Work Phone: [facility] 06-08-2022 23:44-0500 Heart rate 83 /min 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 Work Phone: [facility] 06-08-2022 23:44-0500 Respiratory rate 16 /min 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 Work Phone: [facility] 06-08-2022 23:44-0500 SaO2% (BldA) [Mass fraction] 94 % 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 Work Phone: [facility] 06-08-2022 23:44-0500 Systolic blood pressure 105 mm[Hg] 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 Work Phone: [facility] 06-08-2022 21:45-0500 Body height 170.18 cm 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 Work Phone: [facility] 06-08-2022 21:45-0500 Body temperature 98.2 [degF] 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 Work Phone: [facility] 06-08-2022 21:45-0500 Body weight 114 kg 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 Work Phone: [facility] 05-28-2022 00:59-0500 Body temperature 98.7 [degF] 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 Work Phone: [facility] 05-28-2022 00:59-0500 Diastolic blood pressure 63 mm[Hg] 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 Work Phone: [facility] 05-28-2022 00:59-0500 Heart rate 112 /min 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 Work Phone: [facility] 05-28-2022 00:59-0500 Respiratory rate 18 /min 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 Work Phone: [facility] 05-28-2022 00:59-0500 SaO2% (BldA) [Mass fraction] 96 % 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 Work Phone: [facility] 05-28-2022 00:59-0500 Systolic blood pressure 126 mm[Hg] 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 Work Phone: [facility] 05-27-2022 22:38-0500 Body height 170.18 cm PEE Jones Work Phone: [facility] 05-27-2022 22:38-0500 Body weight 112.65 kg PEE Jones Work Phone: [facility] 05-11-2022 19:51-0500 Diastolic blood pressure 58 mm[Hg] [facility] 05-11-2022 19:51-0500 Heart rate 125 /min [facility] 05-11-2022 19:51-0500 Mean blood pressure 86 mm[Hg] [facility] 05-11-2022 19:51-0500 SaO2% (BldA) [Mass fraction] 95 % [facility] 05-11-2022 19:51-0500 Systolic blood pressure 142 mm[Hg] [facility] 05-11-2022 19:23-0500 Diastolic blood pressure 82 mm[Hg] [facility] 05-11-2022 19:23-0500 Heart rate 118 /min [facility] 05-11-2022 19:23-0500 Mean blood pressure 103 mm[Hg] [facility] 05-11-2022 19:23-0500 SaO2% (BldA) [Mass fraction] 98 % [facility] 05-11-2022 19:23-0500 Systolic blood pressure 144 mm[Hg] [facility] 05-11-2022 18:14-0500 Diastolic blood pressure 85 mm[Hg] [facility] 05-11-2022 18:14-0500 Heart rate 121 /min [facility] 05-11-2022 18:14-0500 Mean blood pressure 99 mm[Hg] [facility] 05-11-2022 18:14-0500 Respiratory rate 16 /min [facility] 05-11-2022 18:14-0500 SaO2% (BldA) [Mass fraction] 96 % [facility] 05-11-2022 18:14-0500 Systolic blood pressure 128 mm[Hg] [facility] 05-11-2022 17:28-0500 Body temperature 99.32 [degF] [facility] 05-11-2022 17:28-0500 Heart rate 134 /min [facility] 05-11-2022 17:28-0500 Respiratory rate 18 /min [facility] 05-01-2022 22:44-0400 Diastolic blood pressure 87 mm[Hg] 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 Work Phone: [facility] 05-01-2022 22:44-0400 Heart rate 110 /min 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 Work Phone: [facility] 05-01-2022 22:44-0400 Respiratory rate 18 /min 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 Work Phone: [facility] 05-01-2022 22:44-0400 SaO2% (BldA) [Mass fraction] 96 % 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 Work Phone: [facility] 05-01-2022 22:44-0400 Systolic blood pressure 147 mm[Hg] 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 Work Phone: [facility] 05-01-2022 20:45-0400 Body height 170.18 cm 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 Work Phone: [facility] 05-01-2022 20:45-0400 Body temperature 98.3 [degF] 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 Work Phone: [facility] 05-01-2022 20:45-0400 Body weight 104.32 kg PEE Jones Work Phone: [facility] 04-25-2022 15:59-0400 Blood Pressure Location [facility] 04-25-2022 15:59-0400 Body temperature 97.7 [degF] [facility] 04-25-2022 15:59-0400 Diastolic blood pressure 94 mm[Hg] [facility] 04-25-2022 15:59-0400 Heart rate 82 /min [facility] 04-25-2022 15:59-0400 Mean blood pressure 112 mm[Hg] [facility] 04-25-2022 15:59-0400 Respiratory rate 17 /min [facility] 04-25-2022 15:59-0400 SaO2% (BldA) [Mass fraction] 98 % [facility] 04-25-2022 15:59-0400 Systolic blood pressure 149 mm[Hg] [facility] 04-25-2022 15:08-0400 Blood Pressure Location [facility] 04-25-2022 15:08-0400 Body temperature 97.88 [degF] [facility] 04-25-2022 15:08-0400 Diastolic blood pressure 112 mm[Hg] [facility] 04-25-2022 15:08-0400 Heart rate 78 /min [facility] 10-28-2022 15:08-0400 Mean blood pressure 135 mm[Hg] [facility] 04-25-2022 15:08-0400 Respiratory rate 14 /min [facility] 04-25-2022 15:08-0400 SaO2% (BldA) [Mass fraction] 97 % [facility] 04-25-2022 15:08-0400 Systolic blood pressure 181 mm[Hg] [facility] 04-25-2022 15:05-0400 Body temperature 97.52 [degF] [facility] 04-25-2022 15:05-0400 Diastolic blood pressure 83 mm[Hg] [facility] 04-25-2022 15:05-0400 Heart rate 88 /min [facility] 04-25-2022 15:05-0400 Respiratory rate 16 /min [facility] 04-25-2022 15:05-0400 SaO2% (BldA) [Mass fraction] 92 % [facility] 04-25-2022 15:05-0400 Systolic blood pressure 148 mm[Hg] [facility] 04-25-2022 14:50-0400 Respiratory rate 12 /min [facility] 04-25-2022 14:35-0400 Respiratory rate 25 /min [facility] 04-25-2022 13:39-0400 Body temperature 96.98 [degF] [facility] 04-25-2022 13:35-0400 Respiratory rate 15 /min [facility] 04-25-2022 08:19-0400 Blood Pressure Location [facility] 04-25-2022 08:19-0400 Mean blood pressure 103 mm[Hg] [facility] 04-25-2022 08:19-0400 Heart rate 80 /min [facility] 04-25-2022 08:18-0400 Body temperature 97.7 [degF] [facility] 04-25-2022 08:18-0400 Mean blood pressure 104 mm[Hg] [facility] 04-22-2022 01:03-0400 Diastolic blood pressure 79 mm[Hg] [facility] 04-22-2022 01:03-0400 Heart rate 91 /min [facility] 04-22-2022 01:03-0400 Hourly Rounding [facility] 04-22-2022 01:03-0400 Mean blood pressure 93 mm[Hg] [facility] 04-22-2022 01:03-0400 Respiratory rate 18 /min [facility] 04-22-2022 01:03-0400 SaO2% (BldA) [Mass fraction] 97 % [facility] 04-22-2022 01:03-0400 Systolic blood pressure 120 mm[Hg] [facility] 04-22-2022 00:39-0400 Diastolic blood pressure 79 mm[Hg] [facility] 04-22-2022 00:39-0400 Heart rate 93 /min [facility] 04-22-2022 00:39-0400 Hourly Rounding [facility] 04-22-2022 00:39-0400 Mean blood pressure 89 mm[Hg] [facility] 04-22-2022 00:39-0400 Respiratory rate 20 /min [facility] 04-22-2022 00:39-0400 SaO2% (BldA) [Mass fraction] 96 % [facility] 04-22-2022 00:39-0400 Systolic blood pressure 109 mm[Hg] [facility] 04-21-2022 23:11-0400 Diastolic blood pressure 94 mm[Hg] [facility] 04-21-2022 23:11-0400 Heart rate 94 /min [facility] 04-21-2022 23:11-0400 Hourly Rounding [facility] 04-21-2022 23:11-0400 Mean blood pressure 106 mm[Hg] [facility] 04-21-2022 23:11-0400 Respiratory rate 20 /min [facility] 04-21-2022 23:11-0400 SaO2% (BldA) [Mass fraction] 98 % [facility] 04-21-2022 23:11-0400 Systolic blood pressure 131 mm[Hg] [facility] 04-21-2022 21:20-0400 Body temperature 97.16 [degF] [facility] 04-21-2022 21:20-0400 Heart rate 103 /min [facility] 04-15-2022 08:38-0400 Diastolic blood pressure 105 mm[Hg] [facility] 04-15-2022 08:38-0400 Heart rate 87 /min [facility] 04-15-2022 08:38-0400 Mean blood pressure 120 mm[Hg] [facility] 04-15-2022 08:38-0400 Systolic blood pressure 149 mm[Hg] [facility] 04-15-2022 08:38-0400 Body temperature 97.88 [degF] [facility] 04-15-2022 08:37-0400 Blood Pressure Location [facility] 04-15-2022 08:37-0400 BP/Pulse Patient Position [facility] 04-15-2022 08:37-0400 Diastolic blood pressure 96 mm[Hg] [facility] 04-15-2022 08:37-0400 Heart rate 84 /min [facility] 04-15-2022 08:37-0400 Mean blood pressure 120 mm[Hg] [facility] 04-15-2022 08:37-0400 Respiratory rate 18 /min [facility] 04-15-2022 08:37-0400 SaO2% (BldA) [Mass fraction] 99 % [facility] 04-15-2022 08:37-0400 Systolic blood pressure 167 mm[Hg] [facility] 04-13-2022 05:27-0400 Body temperature 98.3 [degF] 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 Work Phone: [facility] 04-13-2022 05:27-0400 Diastolic blood pressure 78 mm[Hg] 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 Work Phone: [facility] 04-13-2022 05:27-0400 Heart rate 90 /min 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 Work Phone: [facility] 04-13-2022 05:27-0400 Respiratory rate 20 /min 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 Work Phone: [facility] 04-13-2022 05:27-0400 SaO2% (BldA) [Mass fraction] 96 % 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 Work Phone: [facility] 04-13-2022 05:27-0400 Systolic blood pressure 141 mm[Hg] 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 Work Phone: [facility] 04-12-2022 21:47-0400 Body height 170.18 cm 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 Work Phone: [facility] 04-12-2022 21:47-0400 Body weight 112.9 kg 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 Work Phone: [facility] 04-07-2022 22:25-0400 Body height 170.18 cm 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 Work Phone: [facility] 04-07-2022 22:25-0400 Body weight 112.8 kg 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 Work Phone: [facility] 04-07-2022 22:25-0400 Diastolic blood pressure 74 mm[Hg] 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 Work Phone: [facility] 04-07-2022 22:25-0400 Heart rate 97 /min 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 Work Phone: [facility] 04-07-2022 22:25-0400 Respiratory rate 24 /min 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 Work Phone: [facility] 04-07-2022 22:25-0400 SaO2% (BldA) [Mass fraction] 98 % 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 Work Phone: [facility] 04-07-2022 22:25-0400 Systolic blood pressure 160 mm[Hg] 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 Work Phone: [facility] 03-31-2022 23:54-0400 Body temperature 97.9 [degF] 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 Work Phone: [facility] 03-31-2022 23:54-0400 Diastolic blood pressure 54 mm[Hg] 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 Work Phone: [facility] 03-31-2022 23:54-0400 Heart rate 79 /min 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 Work Phone: [facility] 03-31-2022 23:54-0400 Respiratory rate 16 /min 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 Work Phone: [facility] 03-31-2022 23:54-0400 SaO2% (BldA) [Mass fraction] 93 % 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 Work Phone: [facility] 03-31-2022 23:54-0400 Systolic blood pressure 90 mm[Hg] PEE Jones Work Phone: [facility] 03-31-2022 19:46-0400 Body height 170.18 cm PEE Jones Work Phone: [facility] 03-31-2022 19:46-0400 Body weight 113.3 kg PEE Jones Work Phone: [facility] 03-12-2022 13:00-0400 Body height Cassandra Mcguiremond Other [facility] [employer] Other 03-12-2022 13:00-0400 Body mass index (BMI) [Ratio] 36.31 kg/m2 Cassandra Hyacinth Other [employer] [facility] [employer] Other 03-12-2022 13:00-0400 Body temperature 97.7 [degF] Cassandra Hyacinth Other [employer] Other 03-12-2022 13:00-0400 Body weight 102.06 kg Cassandra Hyacinth Other [employer] Other 03-12-2022 13:00-0400 Respiratory rate 18 /min Cassandra Hyacinth Other [employer] Other 03-12-2022 13:00-0400 SaO2% (BldA) [Mass fraction] 98 % Cassandra Hyacinth Other [employer] Other 03-08-2022 22:35-0400 Nursing Progress Note Reason Other: states pain is better [facility] 03-08-2022 22:34-0400 Diastolic blood pressure 52 mm[Hg] [facility] 03-08-2022 22:34-0400 Heart rate 97 /min [facility] 03-08-2022 22:34-0400 Respiratory rate 16 /min [facility] 03-08-2022 22:34-0400 Systolic blood pressure 118 mm[Hg] [facility] 03-08-2022 22:20-0400 Nursing Progress Note Reason Other: discharge instructions given. pt verbalized understanding. [facility] 03-08-2022 21:53-0400 Nursing Progress Note Reason Other: patient med for pain [facility] 03-08-2022 21:27-0400 Diastolic blood pressure 82 mm[Hg] [facility] 03-08-2022 21:27-0400 Heart rate 105 /min [facility] 03-08-2022 21:27-0400 Respiratory rate 20 /min [facility] 03-08-2022 21:27-0400 SaO2% (BldA) [Mass fraction] 97 % [facility] 03-08-2022 21:27-0400 Systolic blood pressure 131 mm[Hg] [facility] 03-08-2022 19:53-0400 Body temperature 98.42 [degF] [facility] 03-08-2022 19:53-0400 Diastolic blood pressure 83 mm[Hg] [facility] 03-08-2022 19:53-0400 Heart rate 113 /min [facility] 03-08-2022 19:53-0400 Respiratory rate 18 /min [facility] 03-08-2022 19:53-0400 SaO2% (BldA) [Mass fraction] 98 % [facility] 03-08-2022 19:53-0400 Systolic blood pressure 134 mm[Hg] [facility] 02-26-2022 03:06-0400 Diastolic blood pressure 93 mm[Hg] PEE Jones Work Phone: [facility] 02-26-2022 03:06-0400 Heart rate 96 /min 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 Work Phone: [facility] 02-26-2022 03:06-0400 Respiratory rate 20 /min 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 Work Phone: [facility] 02-26-2022 03:06-0400 SaO2% (BldA) [Mass fraction] 97 % 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 Work Phone: [facility] 02-26-2022 03:06-0400 Systolic blood pressure 142 mm[Hg] 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 Work Phone: [facility] 02-25-2022 21:30-0400 Body height 170.18 cm 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 Work Phone: [facility] 02-25-2022 21:30-0400 Body temperature 98.2 [degF] 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 Work Phone: [facility] 02-25-2022 21:30-0400 Body weight 102.05 kg 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 Work Phone: [facility] 12-06-2021 19:03-0400 Body height 170.18 cm 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 Work Phone: [facility] 12-06-2021 19:03-0400 Body mass index (BMI) [Ratio] 35.9 kg/m2 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 Work Phone: [facility] 12-06-2021 19:03-0400 Body temperature 98.5 [degF] OAKES MACHINE OPERATOR Skye Jones Work Phone: [facility] 12-06-2021 19:03-0400 Body weight 104 kg OAKES MACHINE OPERATOR Skye Jones Work Phone: [facility] 12-06-2021 19:03-0400 Diastolic blood pressure 86 mm[Hg] OAKES MACHINE OPERATOR Skye Jones Work Phone: [facility] 12-06-2021 19:03-0400 Heart rate 113 /min OAKES MACHINE OPERATOR Skye Jones Work Phone: [facility] 12-06-2021 19:03-0400 Respiratory rate 20 /min OAKES MACHINE OPERATOR Skye Jones Work Phone: [facility] 12-06-2021 19:03-0400 SaO2% (BldA) [Mass fraction] 96 % [employer]AKES MACHINE OPERATOR Skye Jones Work Phone: [facility] 12-06-2021 19:03-0400 Systolic blood pressure 171 mm[Hg] OAKES MACHINE OPERATOR Skye Jones Work Phone: [facility] 12-06-2021 08:33-0400 Respiratory rate 15 /min Cristi Feng MD Work Phone: [facility] 12-06-2021 06:56-0400 Body temperature 98.1 [degF] Cristi Feng MD Work Phone: [facility] 12-06-2021 06:56-0400 Diastolic blood pressure 82 mm[Hg] Cristi Feng MD Work Phone: [facility] 12-06-2021 06:56-0400 Heart rate 97 /min Cristi Feng MD Work Phone: [facility] 12-06-2021 06:56-0400 SaO2% (BldA) [Mass fraction] 94 % Cristi Feng MD Work Phone: [facility] 12-06-2021 06:56-0400 Systolic blood pressure 122 mm[Hg] Cristi Feng MD Work Phone: [facility] 12-03-2021 22:02-0400 Body height 170.2 cm Cristi Feng MD Work Phone: [facility] 12-03-2021 22:02-0400 Body mass index (BMI) [Ratio] 34.46 kg/m2 Cristi Feng MD Work Phone: [facility] 12-03-2021 22:02-0400 Body weight 99.79 kg Cristi Feng MD Work Phone: [facility] 10-01-2021 01:40-0400 Diastolic blood pressure 57 mm[Hg] OAKES MACHINE OPERATOR Skye Jones Work Phone: [facility] 10-01-2021 01:40-0400 Heart rate 98 /min OAKES MACHINE OPERATOR Skye Jones Work Phone: [facility] 10-01-2021 01:40-0400 Respiratory rate 18 /min OAKES MACHINE OPERATOR Skye Jones Work Phone: [facility] 10-01-2021 01:40-0400 SaO2% (BldA) [Mass fraction] 96 % OAKES MACHINE OPERATOR Skye Jones Work Phone: [facility] 10-01-2021 01:40-0400 Systolic blood pressure 113 mm[Hg] OAKES MACHINE OPERATOR Skye Jones Work Phone: [facility] 09-30-2021 22:37-0400 Body height 170.18 cm OAKES MACHINE OPERATOR Skye Jones Work Phone: [facility] 09-30-2021 22:37-0400 Body mass index (BMI) [Ratio] 35.2 kg/m2 OAKES MACHINE OPERATOR Skye Jones Work Phone: [facility] 09-30-2021 22:37-0400 Body temperature 98.5 [degF] OAKES MACHINE OPERATOR Skye Jones Work Phone: [facility] 09-30-2021 22:37-0400 Body weight 102 kg OAKES MACHINE OPERATOR Skye Jones Work Phone: [facility] 06-25-2021 08:46-0500 Body height 170.2 cm Genet FARNK Work Phone: [facility] 06-25-2021 08:46-0500 Body mass index (BMI) [Ratio] 34.46 kg/m2 Genet FRANK Work Phone: [facility] 06-25-2021 08:46-0500 Body temperature 98.01 [degF] Genet Rosado PA Work Phone: [facility] 06-25-2021 08:46-0500 Body weight 99.79 kg Genet Rosado PA Work Phone: [facility] 06-25-2021 08:46-0500 Diastolic blood pressure 66 mm[Hg] Genet Rosado PA Work Phone: [facility] 06-25-2021 08:46-0500 Heart rate 112 /min Genet Rosado PA Work Phone: [facility] 06-25-2021 08:46-0500 Respiratory rate 16 /min Genet Rosado PA Work Phone: [facility] 06-25-2021 08:46-0500 SaO2% (BldA) [Mass fraction] 95 % Genet Rosado PA Work Phone: [facility] 06-25-2021 08:46-0500 Systolic blood pressure 108 mm[Hg] Genet Rosado PA Work Phone: [facility] 06-10-2021 06:17-0500 Diastolic blood pressure 74 mm[Hg] No Pcp Required [facility] 06-10-2021 06:17-0500 Heart rate 94 /min No Pcp Required [facility] 06-10-2021 06:17-0500 Respiratory rate 18 /min No Pcp Required [facility] 06-10-2021 06:17-0500 SaO2% (BldA) [Mass fraction] 98 % No Pcp Required [facility] 06-10-2021 06:17-0500 Systolic blood pressure 136 mm[Hg] No Pcp Required [facility] 06-10-2021 04:26-0500 Body height 170.1 cm No Pcp Required [facility] 06-10-2021 04:26-0500 Body temperature 98.24 [degF] No Pcp Required [facility] 06-10-2021 04:26-0500 Body weight 100 kg No Pcp Required [facility] 04-15-2021 17:44-0400 Body height 170.2 cm Yanely Coyle DO Work Phone: [employer] Phone: 04-15-2021 17:44-0400 Body mass index (BMI) [Ratio] 32.42 kg/m2 Yanely Coyle DO Work Phone: [employer] Work Phone: 04-15-2021 17:44-0400 Body temperature 97.81 [degF] Yanely Coyle DO Work Phone: [employer] Phone: 04-15-2021 17:44-0400 Body weight 93.89 kg Yanely Coyle DO Work Phone: [employer] Phone: 04-15-2021 17:44-0400 Diastolic blood pressure 56 mm[Hg] Yanely Coyle DO Work Phone: [employer] Phone: 04-15-2021 17:44-0400 Heart rate 124 /min Yanely Coyle DO Work Phone: [employer] Phone: 04-15-2021 17:44-0400 Respiratory rate 16 /min Ynaely Coyle DO Work Phone: [employer] Phone: 04-15-2021 17:44-0400 SaO2% (BldA) [Mass fraction] 98 % Yanely Coyle DO Work Phone: [employer] Phone: 04-15-2021 17:44-0400 Systolic blood pressure 108 mm[Hg] Yanely Coyle DO Work Phone: [employer] Phone: 02-06-2021 08:09-0400 Diastolic blood pressure 92 mm[Hg] Tim Roper MD Work Phone: [facility] 02-06-2021 08:09-0400 Heart rate 95 /min Tim Roper MD Work Phone: [facility] 02-06-2021 08:09-0400 SaO2% (BldA) [Mass fraction] 98 % Tim Roper MD Work Phone: [facility] 02-06-2021 08:09-0400 Systolic blood pressure 140 mm[Hg] Tim Roper MD Work Phone: [facility] 02-02-2021 12:09-0400 Respiratory rate 14 /min Sena White MD Work Phone: [facility] 02-02-2021 08:14-0400 Body temperature 97.9 [degF] Sena White MD Work Phone: [facility] 02-02-2021 08:14-0400 Diastolic blood pressure 80 mm[Hg] Sena White MD Work Phone: [facility] 02-02-2021 08:14-0400 Heart rate 83 /min Sena White MD Work Phone: [facility] 02-02-2021 08:14-0400 SaO2% (BldA) [Mass fraction] 95 % Sena White MD Work Phone: [facility] 02-02-2021 08:14-0400 Systolic blood pressure 132 mm[Hg] Sena White MD Work Phone: [facility] 01-31-2021 21:55-0400 Body height 170.2 cm Sena White MD Work Phone: [facility] 01-31-2021 21:55-0400 Body mass index (BMI) [Ratio] 34.3 kg/m2 Sena White MD Work Phone: [facility] 01-31-2021 21:55-0400 Body weight 99.34 kg Sena White MD Work Phone: [facility] 01-14-2021 21:56-0400 [facility] 01-14-2021 21:55-0400 Body temperature 98.29 [degF] [facility] 01-14-2021 21:55-0400 Diastolic blood pressure 88 mm[Hg] [facility] 01-14-2021 21:55-0400 Heart rate 97 /min [facility] [employer] [facility] 01-14-2021 21:55-0400 Respiratory rate 18 /min [facility] [employer] [facility] 01-14-2021 21:55-0400 SaO2% (BldA) [Mass fraction] 96 % [facility] 01-14-2021 21:55-0400 Systolic blood pressure 138 mm[Hg] [facility] 12-11-2020 03:34-0400 Diastolic blood pressure 84 mm[Hg] No Pcp Required [facility] 12-11-2020 03:34-0400 Heart rate 94 /min No Pcp Required [facility] 12-11-2020 03:34-0400 Respiratory rate 18 /min No Pcp Required [facility] 12-11-2020 03:34-0400 SaO2% (BldA) [Mass fraction] 98 % No Pcp Required [facility] 12-11-2020 03:34-0400 Systolic blood pressure 121 mm[Hg] No Pcp Required [facility] 11-26-2020 00:07-0400 Diastolic blood pressure 69 mm[Hg] Raj Manning MD Work Phone: [employer] Work Phone: 11-26-2020 00:07-0400 Heart rate 74 /min Raj Manning MD Work Phone: [employer] Work Phone: 11-26-2020 00:07-0400 Respiratory rate 16 /min Raj Manning MD Work Phone: [employer] Work Phone: 11-26-2020 00:07-0400 SaO2% (BldA) [Mass fraction] 99 % Raj Manning MD Work Phone: [employer] Work Phone: 11-26-2020 00:07-0400 Systolic blood pressure 134 mm[Hg] Raj Manning MD Work Phone: [employer] Work Phone: 11-25-2020 21:20-0400 Body height 170.2 cm Raj Manning MD Work Phone: [employer] Work Phone: 11-25-2020 21:20-0400 Body mass index (BMI) [Ratio] 34.46 kg/m2 Raj Manning MD Work Phone: [employer] Work Phone: 11-25-2020 21:20-0400 Body temperature 98.1 [degF] Raj Manning MD Work Phone: [employer] Work Phone: 11-25-2020 21:20-0400 Body weight 99.79 kg Raj Manning MD Work Phone: [employer] Work Phone: 11-19-2020 22:38-0400 Diastolic blood pressure 75 mm[Hg] Ludin Pay DO Work Phone: [employer] 11-19-2020 22:38-0400 Heart rate 90 /min Ludin Pay DO Work Phone: [employer] 11-19-2020 22:38-0400 Respiratory rate 16 /min Ludin Pay DO Work Phone: [employer] 11-19-2020 22:38-0400 SaO2% (BldA) [Mass fraction] 97 % Ludin Pay DO Work Phone: [employer] 11-19-2020 22:38-0400 Systolic blood pressure 132 mm[Hg] Ludin Pay DO [facility] 11-19-2020 20:07-0400 Body height 170.2 cm Ludin Thomas DO Work Phone: [employer] 11-19-2020 20:07-0400 Body mass index (BMI) [Ratio] 34.46 kg/m2 Ludin BitX DO Work Phone: [employer] 11-19-2020 20:07-0400 Body weight 99.79 kg Ludin Thomas DO Work [facility]: [facility] 11-19-2020 20:06-0400 Body temperature 98.2 [degF] Ludin Thomas [employer] Work Phone: [facility] 10-25-2020 11:30-0400 Diastolic blood pressure 89 mm[Hg] No Pcp Required [facility] 10-25-2020 11:30-0400 Heart rate 87 /min No Pcp Required [facility] 10-25-2020 11:30-0400 Respiratory rate 16 /min No Pcp Required [facility] 10-25-2020 11:30-0400 SaO2% (BldA) [Mass fraction] 98 % No Pcp Required [facility] 10-25-2020 11:30-0400 Systolic blood pressure 135 mm[Hg] No Pcp Required [facility] 10-25-2020 07:30-0400 Body temperature 97.7 [degF] No Pcp Required [facility] 10-18-2020 19:55-0400 Diastolic blood pressure 65 mm[Hg] Lynnette Beth MD Work Phone: [facility] 10-18-2020 19:55-0400 Heart rate 108 /min Lynnette Beth MD Work Phone: [facility] 10-18-2020 19:55-0400 Respiratory rate 18 /min Lynnette Beth MD Work Phone: [facility] 10-18-2020 19:55-0400 SaO2% (BldA) [Mass fraction] 96 % Lynnette Beth MD Work Phone: [facility] 10-18-2020 19:55-0400 Systolic blood pressure 136 mm[Hg] Lynnette Beth MD Work Phone: [facility] 10-18-2020 19:04-0400 Body height 170.2 cm Lynnette Beth MD Work Phone: [facility] 10-18-2020 19:04-0400 Body mass index (BMI) [Ratio] 36.02 kg/m2 Lynnette Beth MD Work Phone: [facility] 10-18-2020 19:04-0400 Body temperature 98.91 [degF] Lynnette Beth MD Work Phone: [facility] 10-18-2020 19:04-0400 Body weight 104.33 kg Lynnette Beth MD Work Phone: [facility] 10-16-2020 23:02-0400 Diastolic blood pressure 80 mm[Hg] Lynnette Beth MD Work Phone: [facility] 10-16-2020 23:02-0400 Heart rate 98 /min Lynnette Beth MD Work Phone: [facility] 10-16-2020 23:02-0400 SaO2% (BldA) [Mass fraction] 100 % Lynnette Beth MD Work Phone: [facility] 10-16-2020 23:02-0400 Systolic blood pressure 139 mm[Hg] Lynnette Beth MD Work Phone: [facility] 10-16-2020 22:30-0400 Respiratory rate 16 /min Lynnette Beth MD Work Phone: [facility] 10-16-2020 19:50-0400 Body height 170.2 cm Lynnette Beth MD Work Phone: [facility] 10-16-2020 19:50-0400 Body mass index (BMI) [Ratio] 36.02 kg/m2 Lynnette Beth MD Work Phone: [facility] 10-16-2020 19:50-0400 Body temperature 98.49 [degF] Lynnette Beth MD Work Phone: [facility] 10-16-2020 19:50-0400 Body weight 104.33 kg Lynnette Beth MD Work Phone: [facility] 10-01-2020 22:05-0400 Body Temperature 98.91 [degF] [facility] 10-01-2020 22:05-0400 BP Diastolic 74 mm[Hg] [facility] Work [facility]: 10-01-2020 22:05-0400 BP Systolic 128 mm[Hg] [facility] Work [facility]: 10-01-2020 22:05-0400 Pulse (Heart Rate) 99 /min [facility] 10-01-2020 22:05-0400 Pulse Oximetry 98 % [facility]: 10-01-2020 22:05-0400 Respiratory Rate 20 /min [facility]: 10-01-2020 19:27-0400 BMI (Body Mass Index) 36.02 kg/m2 [facility] Work [facility]: 10-01-2020 19:27-0400 Body weight 104.33 kg [facility] Work [facility]: 10-01-2020 19:27-0400 Height 170.2 cm [facility] Work Phone: 09-27-2020 01:03-0400 BP Diastolic 75 mm[Hg] Skye Jones [facility] [employer] Work Phone: 09-27-2020 01:03-0400 BP Systolic 129 mm[Hg] Skye Jones [facility] [employer] Work Phone: 09-27-2020 01:03-0400 Pulse (Heart Rate) 94 /min Skye Jones [employer] Work Phone: 09-27-2020 01:03-0400 Pulse Oximetry 98 % Skye Jones [employer] Work Phone: 09-27-2020 01:03-0400 Respiratory Rate 20 /min Skye Jones [employer] Work Phone: 09-26-2020 23:47-0400 BMI (Body Mass Index) 36.02 kg/m2 Skye Jones [employer] Work Phone: 09-26-2020 23:47-0400 Body weight 104.33 kg Skye Jones [employer] Work Phone: 09-26-2020 23:47-0400 Height 170.2 cm Skye Arnica Work Phone: 09-20-2020 23:45-0400 BP Diastolic 67 mm[Hg] [facility] [employer] [facility] 09-20-2020 23:45-0400 BP Systolic 117 mm[Hg] [facility] [employer] [facility] 09-20-2020 21:25-0400 BMI (Body Mass Index) 36.02 kg/m2 [facility] 09-20-2020 21:25-0400 Body weight 104.33 kg [facility] 09-20-2020 21:25-0400 Height 170.2 cm [facility] [employer] [facility] 09-20-2020 21:24-0400 Body Temperature 98.2 [degF] [facility] [employer] [facility] 09-20-2020 21:24-0400 Pulse (Heart Rate) 100 /min [facility] 09-20-2020 21:24-0400 Pulse Oximetry 99 % [facility] [employer] [facility] 09-20-2020 21:24-0400 Respiratory Rate 16 /min [facility] [employer] [facility] 09-09-2020 22:45-0400 BP Diastolic 82 mm[Hg] [facility] 09-09-2020 22:45-0400 BP Systolic 147 mm[Hg] [facility] 09-09-2020 22:45-0400 Pulse (Heart Rate) 101 /min [facility] 09-09-2020 22:45-0400 Pulse Oximetry 95 % [facility] 09-09-2020 22:45-0400 Respiratory Rate 16 /min [facility] 09-09-2020 20:52-0400 BMI (Body Mass Index) 36.02 kg/m2 [facility] 09-09-2020 20:52-0400 Body Temperature 98.29 [degF] [facility] 09-09-2020 20:52-0400 Body weight 104.33 kg [facility] 09-09-2020 20:52-0400 Height 170.2 cm [facility] 08-15-2020 00:00-0500 Pulse Oximetry 97 % [facility] 08-14-2020 22:50-0500 BP Diastolic 92 mm[Hg] [facility] 08-14-2020 22:50-0500 BP Systolic 142 mm[Hg] [facility] 08-14-2020 22:50-0500 Pulse (Heart Rate) 97 /min [facility] 08-14-2020 22:49-0500 Respiratory Rate 16 /min [facility] 08-14-2020 20:29-0500 BMI (Body Mass Index) 36.81 kg/m2 [facility] 08-14-2020 20:29-0500 Body Temperature 98.29 [degF] [facility] 08-14-2020 20:29-0500 Body weight 106.59 kg [facility] 07-16-2020 20:15-0500 Body Temperature 98.49 [degF] [facility] 07-16-2020 20:15-0500 BP Diastolic 82 mm[Hg] [facility] 07-16-2020 20:15-0500 BP Systolic 130 mm[Hg] [facility] 07-16-2020 20:15-0500 Pulse (Heart Rate) 104 /min [facility] 07-16-2020 20:15-0500 Pulse Oximetry 99 % Dominik [facility] 07-16-2020 20:15-0500 Respiratory Rate 18 /min Dominik [facility] 07-16-2020 17:37-0500 BMI (Body Mass Index) 39.16 kg/m2 [facility] 07-16-2020 17:37-0500 Body weight 113.4 kg [facility] 07-16-2020 17:37-0500 Height 170.2 cm [facility] 07-08-2020 21:30-0500 BP Diastolic 71 mm[Hg] Cristi Feng [facility] 07-08-2020 21:30-0500 BP Systolic 135 mm[Hg] Cristi Feng [facility] 07-08-2020 21:30-0500 Pulse Oximetry 95 % Cristi Feng [facility] 07-08-2020 21:00-0500 Pulse (Heart Rate) 111 /min Cristi Feng [facility] 07-08-2020 20:00-0500 Body Temperature 98.71 [degF] Cristi Feng [facility] 07-08-2020 20:00-0500 Respiratory Rate 18 /min Crisit Feng [facility] 07-01-2020 23:17-0500 BP Diastolic 64 mm[Hg] [facility] [place] 07-01-2020 23:17-0500 BP Systolic 142 mm[Hg] [facility] [place] 07-01-2020 23:17-0500 Pulse (Heart Rate) 106 /min [facility] [place] 07-01-2020 23:17-0500 Pulse Oximetry 93 % [facility] [place] 07-01-2020 23:17-0500 Respiratory Rate 20 /min [facility] [place] 07-01-2020 22:08-0500 BMI (Body Mass Index) 40.1 kg/m2 [facility] [place] 07-01-2020 22:08-0500 Body Temperature 98.1 [degF] [facility] [place] 07-01-2020 22:08-0500 Body weight 116.[address] [facility] [place] 07-01-2020 22:08-0500 Height 170.2 cm Raj Abraham [facility] , [place] 05-28-2020 08:08-0500 Body Temperature 97.2 [degF] Saul [facility] , [place] 05-28-2020 08:08-0500 BP Diastolic 74 mm[Hg] [facility] , [place] 05-28-2020 08:08-0500 BP Systolic 129 mm[Hg] [facility] , [place] 05-28-2020 08:08-0500 Pulse (Heart Rate) 98 /min [facility], [place] 05-28-2020 08:08-0500 Pulse Oximetry 93 % [facility] , [place] 05-28-2020 08:08-0500 Respiratory Rate 17 /min Saul [facility], [place] 05-28-2020 02:31-0500 BMI (Body Mass Index) 43.07 kg/m2 Saul [facility], [place] 05-28-2020 02:31-0500 Body weight 124.74 kg Saul [facility] , [place] 05-27-2020 21:46-0500 Height 170.2 cm Saul [facility] , [place] 05-25-2020 18:33-0500 Pulse (Heart Rate) 114 /min [facility] [place] 05-25-2020 18:33-0500 Respiratory Rate 19 /min Yanely [facility], [place] 05-25-2020 17:52-0500 BP Diastolic 95 mm[facility]Hg] [facility] [place] 05-25-2020 17:52-0500 BP Systolic 140 mm[Hg] [facility] [place] 05-25-2020 17:52-0500 Pulse Oximetry 96 % Yanely [facility] , [place] 05-25-2020 16:15-0500 BMI (Body Mass Index) 40.41 kg/m2 Yanely [facility], [place] 05-25-2020 16:15-0500 Body Temperature 98.49 [degF] Yanely [facility], [place] 05-25-2020 16:15-0500 Body weight 117.03 kg Yanely Coyle [facility] , [place] 05-25-2020 16:15-0500 Height 170.2 cm Yanely Coyle [facility] , [place] 05-18-2020 08:33-0500 Body Temperature 97.5 [degF] Kristi Burt [facility], [place] 05-18-2020 08:33-0500 BP Diastolic 64 mm[Hg] Kristijulia Craig [facility] , [place] 05-18-2020 08:33-0500 BP Systolic 111 mm[Hg] Kristijulia Craig [facility] , [place] 05-18-2020 08:33-0500 Pulse (Heart Rate) 96 /min Kristi Rafa [facility], [place] 05-18-2020 08:33-0500 Pulse Oximetry 91 % Kristijulia Craig [facility] , [place] 05-17-2020 08:50-0500 Respiratory Rate 20 /min Kristi Craig [facility], [place] 05-15-2020 08:33-0500 BMI (Body Mass Index) 42.6 kg/m2 Kristijulia Craig [facility], [place] 05-15-2020 08:33-0500 Body weight 123.38 kg Kristi Craig [facility] , [place] 05-05-2020 13:53-0500 Height 170.2 cm Kristijulia Craig [facility] , [place] 05-01-2020 17:30-0500 BP Diastolic 70 mm[Hg] [facility] , [place] 05-01-2020 17:30-0500 BP Systolic 117 mm[Hg] [facility] , [place] 05-01-2020 17:30-0500 Pulse Oximetry 91 % Yanely Colye [facility] , [place] 05-01-2020 17:30-0500 Respiratory Rate 22 /[facility] [place] 05-01-2020 15:00-0500 Body Temperature 98.6 [degF] [facility], [place] 05-01-2020 15:00-0500 Pulse (Heart Rate) 76 /min [facility], [place] 05-01-2020 13:11-0500 BMI (Body Mass Index) 42.29 kg/m2 [facility], [place] 05-01-2020 13:11-0500 Body weight 122.47 kg Yanely Coyle [facility] , [place] 05-01-2020 13:11-0500 Height 170.2 cm Yanely Burt [facility] , [place] 04-30-2020 06:46-0500 BMI (Body Mass Index) 42.29 kg/m2 Skye Jones [facility], [place] 04-30-2020 06:46-0500 Body Temperature 101.19 [degF] [facility] [place] 04-30-2020 06:46-0500 Body weight 122.47 [facility] [place] 04-30-2020 06:46-0500 BP Diastolic 62 mm[Hg] [facility] [place] 04-30-2020 06:46-0500 BP Systolic 149 mm[Hg] [facility] [place] 04-30-2020 06:46-0500 Height 170.2 cm [facility] [place] 04-30-2020 06:46-0500 Pulse (Heart Rate) 109 /min Skye Jones [facility], [place] 04-30-2020 06:46-0500 Pulse Oximetry 97 % Skye Jones [facility] , [place] 04-30-2020 06:46-0500 Respiratory Rate 18 /min [facility] [place] 04-29-2020 12:30-0500 BP Diastolic 70 mm[Hg] [facility] , [place] 04-29-2020 12:30-0500 BP Systolic 113 mm[Hg] Raj Manning [facility] , [place] 04-29-2020 12:30-0500 Pulse (Heart Rate) 95 /min Raj Manning [facility], [place] 04-29-2020 12:30-0500 Pulse Oximetry 98 % Raj Manning [facility] , [place] 04-29-2020 12:30-0500 Respiratory Rate 16 /min [facility] [place] 04-29-2020 11:07-0500 BMI (Body Mass Index) 42.29 kg/m2 Raj Manning [facility], [place] 04-29-2020 11:07-0500 Body Temperature 98.29 [degF] [facility] [place] 04-29-2020 11:07-0500 Body weight 122.47 kg Raj Burt [facility] [place] , [place] 04-29-2020 11:07-0500 Height 170.2 cm Raj Burt [facility] , [place] 03-20-2020 20:41-0400 BMI (Body Mass Index) 42.29 kg/m2 Skye Burt [facility] [place] 03-20-2020 20:41-0400 Body Temperature 98.91 [degF] [facility] 03-20-2020 20:41-0400 Body weight 122.47 kg [facility]e [facility] [place] 03-20-2020 20:41-0400 BP Diastolic 72 mm[Hg] [facility] [place] 03-20-2020 20:41-0400 BP Systolic 182 mm[Hg] [facility]e [facility] [place] 03-20-2020 20:41-0400 Height 170.2 cm [facility] [place] 03-20-2020 20:41-0400 Pulse (Heart Rate) 128 /min [facility] [place] 03-20-2020 20:41-0400 Pulse Oximetry 98 % Skye Burt [facility] [place] 03-20-2020 20:41-0400 Respiratory Rate 19 /min [facility] 03-05-2020 01:04-0400 BP Diastolic 76 mm[Hg] [facility] [place] 03-05-2020 01:04-0400 BP Systolic 122 mm[Hg] [facility] [place] 03-05-2020 01:04-0400 Pulse (Heart Rate) 113 /min [facility] [place] 03-05-2020 01:04-0400 Pulse Oximetry 95 % [facility] [place] 03-05-2020 01:04-0400 Respiratory Rate 20 /min [facility] 03-04-2020 21:23-0400 BMI (Body Mass Index) 42.29 kg/m2 Skye Burt [facility] [place] 03-04-2020 21:23-0400 Body Temperature 98.1 [degF] [facility] 03-04-2020 21:23-0400 Body weight 122.47 kg Skye Burt [facility] , [place] 03-04-2020 21:23-0400 Height 170.2 cm Skye Burt [facility] , [place] 02-19-2020 20:38-0400 BP Diastolic 81 mm[Hg] Luz Nelson [facility] [place] , [place] 02-19-2020 20:38-0400 BP Systolic 142 mm[Hg] [facility] [place] [facility] [place] 02-19-2020 20:38-0400 Pulse (Heart Rate) 118 /min Sesar Burt [facility], [place] 02-19-2020 20:38-0400 Pulse Oximetry 99 % Sesar Damon [facility] , [place] 02-19-2020 19:09-0400 BMI (Body Mass Index) 42.29 kg/m2 Sesar Burt [facility] 02-19-2020 19:09-0400 Body Temperature 98.1 [degF] Sesar [facility]ier[facility]Predictive Technologies [facility], [place] 02-19-2020 19:09-0400 Body weight 122.47 kg Sesar Burt [facility] , [place] 02-19-2020 19:09-0400 Height 170.2 cm Sesar Damon [facility] , [place] 02-19-2020 19:09-0400 Respiratory Rate 19 /min Luz Nelson [employer] [facility] , [place] 02-17-2020 02:40-0400 BP Diastolic 81 mm[Hg] Rickey Davis [facility] , [place] 02-17-2020 02:40-0400 BP Systolic 146 mm[Hg] Rickey Davis [facility] , [place] 02-17-2020 02:40-0400 Pulse (Heart Rate) 130 /min Rickey Davis [facility], [place] 02-17-2020 02:40-0400 Pulse Oximetry 95 % Rickey Davis [facility] , [place] 02-17-2020 02:40-0400 Respiratory Rate 18 /min Rickey [facility] [place] 02-16-2020 21:42-0400 BMI (Body Mass Index) 42.29 kg/m2 Rickey Burt [facility], [place] 02-16-2020 21:42-0400 Body Temperature 99.19 [degF] Rickey [facility] [place] 02-16-2020 21:42-0400 Body weight 122.47 kg Rickey Burt [facility] , [place] 02-16-2020 21:42-0400 Height 170.2 cm Rickey Burt [facility] , [place] 01-19-2020 17:13-0400 BMI (Body Mass Index) 42.29 kg/m2 Jone Luigi TL-Gkjeojhqekkszk-V [facility] Work Phone: 01-19-2020 17:13-0400 Body weight 122.47 kg Jone Luigi -Otolaryngolog y-S [facility] Work Phone: 01-19-2020 17:13-0400 BSA (Body Surface Area) 2.3 m2 Jone Harpay WH-Mfcixcopqaiopf-O [facility] Work Phone: 01-19-2020 17:13-0400 Height 170.18 cm Jone Meyers -Otolaryngolog y-S [facility] Work Phone: 01-14-2020 03:24-0400 Body Temperature 97.59 [degF] [facility] , [place] 01-14-2020 03:24-0400 BP Diastolic 76 mm[Hg] Skye HaileMelon Power [facility] [place] 01-14-2020 03:24-0400 BP Systolic 122 mm[Hg] Skye HaileMelon Power [facility] [place] 01-14-2020 03:24-0400 Pulse (Heart Rate) 98 /min Skye Jones [employer] [facility], [place] 01-14-2020 03:24-0400 Pulse Oximetry 98 % Skye Jones [employer] [facility] , [place] 01-14-2020 03:24-0400 Respiratory Rate 20 /min Skye Jones [employer] , [place] 01-13-2020 22:00-0400 BMI (Body Mass Index) 51.21 kg/m2 [facility], [place] 01-13-2020 22:00-0400 Body weight 127.01 kg Skye Burt [facility] , [place] 01-08-2020 11:25-0400 BP Diastolic 92 mm[Hg] Luz Vladfernanda [facility] , [place] 01-08-2020 11:25-0400 BP Systolic 157 mm[Hg] [place] 01-08-2020 11:25-0400 Pulse (Heart Rate) 118 /min [place] 01-08-2020 11:25-0400 Pulse Oximetry 99 % Lu[place] , [place] 01-08-2020 11:25-0400 Respiratory Rate 18 /min [facility] [place] 01-08-2020 09:52-0400 BMI (Body Mass Index) 51.21 kg/m2 [facility], [place] 01-08-2020 09:52-0400 Body Temperature 99.1 [degF] [facility] [place] 01-08-2020 09:52-0400 Body weight 127.01 kg [facility] , [place] 01-08-2020 09:52-0400 Height 157.5 cm Luz Vladfernanda [facility] , [place] 10-20-2019 04:00-0400 BMI (Body Mass Index) 42.29 kg/m2 Skye Jones [facility], [place] 10-20-2019 04:00-0400 Body Temperature 97.5 [degF] Skye Jones [facility], [place] 10-20-2019 04:00-0400 Body weight 122.47 kg Skye Jones [facility] , [place] 10-20-2019 04:00-0400 BP Diastolic 88 mm[Hg] [facility] [place] 10-20-2019 04:00-0400 BP Systolic 151 mm[Hg] Skye Jones [facility] , [place] 10-20-2019 04:00-0400 Pulse (Heart Rate) 111 /min [facility], [place] 10-20-2019 04:00-0400 Pulse Oximetry 98 % Skye Burt [facility] , [place] 10-20-2019 04:00-0400 Respiratory Rate 20 /min Skye GutierrezPredictive Technologies [facility] , [place] 08-18-2019 20:51-0500 BMI (Body Mass Index) 41.97 kg/m2 [facility] [place] 08-18-2019 20:51-0500 Body Temperature 98.2 [degF] [facility] [place] 08-18-2019 20:51-0500 Body weight 121.56 kg [facility] [place] 08-18-2019 20:51-0500 BP Diastolic 74 mm[Hg] [facility] [place] 08-18-2019 20:51-0500 BP Systolic 148 mm[Hg] Skye [facility] , [place] 08-18-2019 20:51-0500 Height 170.2 cm [facility] [place] 08-18-2019 20:51-0500 Pulse (Heart Rate) 110 /min [facility] [place] 08-18-2019 20:51-0500 Pulse Oximetry 96 % Skye Jones [facility] , [place] 08-18-2019 20:51-0500 Respiratory Rate 20 /min Skye Jones [employer] [facility], [place] 07-14-2019 06:00-0500 Diastolic blood pressure 82 mm[Hg] Rickey Davis MD Work Phone: [employer] Work Phone: 07-14-2019 06:00-0500 Heart rate 102 /min Rickey Davis MD Work Phone: [employer] Work Phone: 07-14-2019 06:00-0500 Respiratory rate 18 /min Rickey Davis MD Work Phone: [employer] Work Phone: 07-14-2019 06:00-0500 SaO2% (BldA) [Mass fraction] 95 % Rickey Davis MD Work Phone: [employer] Work Phone: 07-14-2019 06:00-0500 Systolic blood pressure 125 mm[Hg] Rickey Davis MD Work Phone: [employer] Work Phone: 07-14-2019 04:22-0500 Body height 170.2 cm Rickey Davis MD Work Phone: [employer] Work Phone: 07-14-2019 04:22-0500 Body mass index (BMI) [Ratio] 40.72 kg/m2 Rickey Davis MD Work Phone: [employer] Work Phone: 07-14-2019 04:22-0500 Body temperature 98.1 [degF] Rickey Davis MD Work Phone: [employer] Work Phone: 07-14-2019 04:22-0500 Body weight 117.94 kg Rickey Davis MD Work Phone: [employer] Work Phone: 07-11-2019 04:14-0500 Diastolic blood pressure 75 mm[Hg] Abdulkadir Edouard [employer] Work Phone: 07-11-2019 04:14-0500 Heart rate 126 /min Abdulkadir Edouard [employer] Work Phone: 07-11-2019 04:14-0500 Systolic blood pressure 128 mm[Hg] Abdulkadir Edouard [employer] Work Phone: 07-11-2019 04:12-0500 Body height 170.2 cm Abdulkadir Edouard [employer] Work Phone: 07-11-2019 04:12-0500 Body mass index (BMI) [Ratio] 40.72 kg/m2 Abdulkadir Edouard [employer] Work Phone: 07-11-2019 04:12-0500 Body temperature 97.3 [degF] Abdulkadir Edouard DO [employer] Work Phone: 07-11-2019 04:12-0500 Body weight 117.94 kg Abdulkadir Edouard DO [employer] Work Phone: 07-11-2019 04:12-0500 Respiratory rate 18 /min Abdulkadir Edouard DO [employer] Work Phone: 07-11-2019 04:12-0500 SaO2% (BldA) [Mass fraction] 98 % Abdulkadir Edouard [employer] Work Phone: 07-09-2019 23:40-0500 Diastolic blood pressure 68 mm[Hg] Harry Marshall MD Work Phone: [employer] Work Phone: 07-09-2019 23:40-0500 Heart rate 120 /min Harry Marshall MD Work Phone: [employer] Work Phone: 07-09-2019 23:40-0500 Respiratory rate 16 /min Harry Marshall MD Work Phone: [employer] Work Phone: 07-09-2019 23:40-0500 SaO2% (BldA) [Mass fraction] 96 % Harry Marshall MD Work Phone: [employer] Work Phone: 07-09-2019 23:40-0500 Systolic blood pressure 110 mm[Hg] Harry Marshall MD Work Phone: [employer] Work Phone: 07-09-2019 18:23-0500 Body height 170.2 cm Harry Marshall MD Work Phone: [employer] Work Phone: 07-09-2019 18:23-0500 Body mass index (BMI) [Ratio] 40.72 kg/m2 Harry Marshall MD Work Phone: [employer] Work Phone: 07-09-2019 18:23-0500 Body temperature 97.3 [degF] Harry Marshall MD Work Phone: [employer] Work Phone: 07-09-2019 18:23-0500 Body weight 117.94 kg Harry Marshall MD Work Phone: [employer] Work Phone: 04-26-2019 14:34-0400 BMI (Body Mass Index) 41.04 kg/m2 Raj [facility] [place] 04-26-2019 14:34-0400 Body Temperature 98.6 [degF] Raj [facility]Q [facility], [place] 04-26-2019 14:34-0400 Body weight 118.84 kg Raj Manning [facility] , [place] 04-26-2019 14:34-0400 BP Diastolic 83 mm[Hg] Raj Manning [facility] [employer] , [place] 04-26-2019 14:34-0400 BP Systolic 138 mm[Hg] Raj Manning [facility] , [place] 04-26-2019 14:34-0400 Height 170.2 cm Raj GutierrezQ [facility]NE[facility] , [place] 04-26-2019 14:34-0400 Pulse (Heart Rate) 116 /min Raj GutierrezQ HoldingsNE[facility], [place] 04-26-2019 14:34-0400 Pulse Oximetry 97 % Raj GutierrezQ [facility]NE[facility] , [place] 04-26-2019 14:34-0400 Respiratory Rate 20 /min Raj Manning [facility], [place] 04-22-2019 07:23-0400 Body Temperature 97.9 [degF] Abdulkadir MolinaDistech Controlsdesirae [facility], [place] 04-22-2019 07:23-0400 BP Diastolic 60 mm[Hg] Abdulkadir Edouard [facility], [place] 04-22-2019 07:23-0400 BP Systolic 107 mm[Hg] Abdulkadir Edouard [facility], [place] 04-22-2019 07:23-0400 Pulse (Heart Rate) 80 /min Abdulkadir Edouard [facility], [place] 04-22-2019 07:23-0400 Pulse Oximetry 98 % Abdulkadir Edouard [facility], [place] 04-22-2019 07:23-0400 Respiratory Rate 16 /min Abdulkadir Edouard [facility], [place] 04-17-2019 20:55-0400 BMI (Body Mass Index) 42.29 kg/m2 Abdulkadir Edouard [facility], [place] 04-17-2019 20:55-0400 Body weight 122.47 kg Abdulkadir Edouard [facility], [place] 04-17-2019 20:55-0400 Height 170.2 cm Abdulkadir Edouard [facility], [place] 04-12-2019 21:00-0400 BMI (Body Mass Index) 42.29 kg/m2 [facility] [place] 04-12-2019 21:00-0400 Body Temperature 99 [degF] [facility], [place] 04-12-2019 21:00-0400 Body weight 122.47 kg [facility] [place] 04-12-2019 21:00-0400 BP Diastolic 78 mm[Hg] [facility] , [place] 04-12-2019 21:00-0400 BP Systolic 131 mm[Hg] [facility] , [place] 04-12-2019 21:00-0400 Height 170.2 cm Skye [facility] , [place] 04-12-2019 21:00-0400 Pulse (Heart Rate) 114 /min Skye [facility], [place] 04-12-2019 21:00-0400 Pulse Oximetry 97 % Skye [facility] , [place] 04-12-2019 21:00-0400 Respiratory Rate 20 /min [facility] [place] 04-10-2019 16:44-0400 BP Diastolic 75 mm[Hg] [facility] , [place] 04-10-2019 16:44-0400 BP Systolic 138 mm[Hg] [facility] , [place] 04-10-2019 16:44-0400 Pulse (Heart Rate) 101 /min [facility] [place], [place] 04-10-2019 16:44-0400 Pulse Oximetry 100 % [place] , [place] 04-10-2019 16:44-0400 Respiratory Rate 18 /min [facility] [place] 04-10-2019 13:46-0400 BMI (Body Mass Index) 43.07 kg/m2 [place] 04-10-2019 13:46-0400 Body Temperature 98.71 [degF] [facility], [place] 04-10-2019 13:46-0400 Body weight 124.74 kg Luz [place] , [place] 04-10-2019 13:46-0400 Height 170.2 cm Luz Vladfernanda [facility] , [place] 04-05-2019 21:51-0400 BP Diastolic 84 mm[Hg] Raj Manning [facility] , [place] 04-05-2019 21:51-0400 BP Systolic 160 mm[Hg] Raj Manning [facility] , [place] 04-05-2019 21:51-0400 Pulse (Heart Rate) 98 /min Raj Manning [facility], [place] 04-05-2019 21:51-0400 Pulse Oximetry 98 % Raj Manning [facility] , [place] 04-05-2019 21:51-0400 Respiratory Rate 16 /min Raj Manning [facility], [place] 04-05-2019 20:43-0400 BMI (Body Mass Index) 43.07 kg/m2 Raj Manning [facility], [place] 04-05-2019 20:43-0400 Body Temperature 98.49 [degF] Raj Manning [facility], [place] 04-05-2019 20:43-0400 Body weight 124.74 kg Raj Manning [facility] , [place] 04-05-2019 20:43-0400 Height 170.2 cm Raj Manning [facility] , [place] 02-28-2019 16:22-0400 Body Temperature 97.3 [degF] Raj Manning [facility], [place] 02-28-2019 13:05-0400 BMI (Body Mass Index) 43.85 kg/m2 Raj Manning [facility], [place] 02-28-2019 13:05-0400 Body weight 127.01 kg Raj [facility] , [place] 02-28-2019 13:05-0400 BP Diastolic 80 mm[Hg] Raj Burt [facility] , [place] 02-28-2019 13:05-0400 BP Systolic 168 mm[Hg] Raj Burt [facility] , [place] 02-28-2019 13:05-0400 Height 170.2 cm Raj Burt [facility] , [place] 02-28-2019 13:05-0400 Pulse (Heart Rate) 130 /min Raj Burt [facility], [place] 02-28-2019 13:05-0400 Pulse Oximetry 96 % Raj Burt [facility] , [place] 02-28-2019 13:05-0400 Respiratory Rate 20 /min Raj Burt [facility], [place] Encounters Encounter Date Encounter Type Care Provider Facility Start: 09-03-2023 End: 09-03-2023 ambulatory OMI WATKINS Not Available Start: 08-19-2023 End: 08-19-2023 Emergency department patient visit Skye Jones Facility:[facility] Start: 08-19-2023 End: 08-19-2023 Emergency department patient visit PEE Jones Work Phone: [facility] Work Phone: Start: 07-23-2023 End: 07-26-2023 Evaluation and management of inpatient Maxim Blair Facility:[facility] Start: 07-23-2023 Non-patient / Non-visit 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 Start: 07-23-2023 Encounter for other general examination REAGAN [facility] Start: 07-11-2023 End: 07-12-2023 Emergency department patient visit Sybil Muhammad [facility] Start: 07-08-2023 End: 07-09-2023 ambulatory SKYE JONES [facility] Start: 07-08-2023 End: 07-09-2023 Subsequent hospital visit by physician Yoly Bro MD Work Phone: [facility] 1W Telemetry Comment on above: Post-operative pain (Primary Dx); Acute bursitis of left shoulder Start: 07-07-2023 End: 07-08-2023 Emergency department patient visit Skye Jones Facility:[facility] Start: 07-07-2023 End: 07-08-2023 Emergency department patient visit 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 Start: 06-30-2023 End: 07-01-2023 Subsequent hospital visit by physician Ruben Abdi MD Work Phone: [facility] [id number] Ortho Tele Comment on above: Cervical stenosis of spine (Primary Dx); Pain Start: 06-23-2023 End: 06-28-[address] [facility] Start: 06-07-2023 End: 06-07-2023 Emergency department patient visit Grey Putnam Facility:[facility] Start: 06-06-2023 End: 06-07-2023 Emergency department patient visit Grey Putnam [facility] Start: 06-03-2023 End: 06-06-[address] [facility] Start: 05-15-2023 ambulatory Braulio Dukes Facility:[facility] Start: 05-15-2023 Registered Recurring OAKES MACHINE OPERATORAdrien Murray Work Phone: [facility] Start: 05-10-2023 End: 05-10-2023 Emergency department patient visit SKYE JONES [facility] Start: 04-21-2023 End: 04-21-2023 ambulatory Monica Ordaz Other [facility] [employer] Other Start: 04-21-2023 Office outpatient vi sit 15 minutes Monica Ordaz [facility] Start: 03-29-2023 End: 04-03-2023 Evaluation and management of inpatient Maxim Blair Facility:[facility] Start: 03-29-2023 End: 04-03-2023 Evaluation and management of inpatient OAKES MACHINE OPERATOR Skye Jones Work Phone: [facility] Work Phone: Start: 03-20-2023 End: 03-20-2023 ambulatory Skye Levi Jones Facility:[facility] Start: 03-20-2023 End: 03-20-2023 ambulatory OAKES MACHINE OPERATOR Skye Levi Jones Work Phone: [facility] Work Phone: Start: 03-20-2023 End: 03-20-2023 Discharged Recurring OAKES MACHINE OPERATOR Skye Jones Work Phone: [facility] [place] Start: 01-29-2023 End: 02-01-2023 Evaluation and management of inpatient Maxim Blair Facility:[facility] Start: 01-29-2023 End: 02-01-2023 Evaluation and management of inpatient OAKES MACHINE OPERATOR Skye Sims Jones Work Phone: [facility] Work Phone: Start: 01-29-2023 End: 02-01-2023 OAKES MACHINE OPERATOR Skye Jones Work Phone: [facility] Work Phone: Start: 01-26-2023 End: 01-26-2023 Emergency department patient visit Grey Putnam Facility:[facility] Start: 01-26-2023 End: 01-26-2023 Emergency department patient visit Grey Putnam [facility] Start: 01-18-2023 End: 01-22-2023 Evaluation and management of inpatient Maxmi Blair Facility:[facility] Start: 01-18-2023 End: 01-22-2023 Evaluation and management of inpatient OAKES MACHINE OPERATOR Skye Jones Work Phone: [facility] Work Phone: Start: 01-18-2023 End: 01-22-2023 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: [facility] [facility] Work Phone: Start: 12-31-2022 End: 01-03-2023 Evaluation and management of inpatient Braulio Dukes Facility:[facility] Start: 12-31-2022 End: 01-03-2023 PEE Jones Work Phone: [facility] Work Phone: Start: 12-24-2022 PEE Carvalho Work Phone: [facility] [place] Start: 12-14-2022 End: 12-17-2022 Evaluation and management of inpatient Maxim Blair Facility:[facility] Start: 12-14-2022 End: 12-17-2022 PEE Jones Work Phone: [facility] Work Phone: Start: 12-06-2022 PEE Carvalho Work Phone: [facility] Start: 12-06-2022 End: 12-10-2022 Evaluation and management of inpatient Maxim Blair Facility:[facility] Start: 12-06-2022 End: 12-10-2022 Evaluation and management of inpatient OAKES MACHINE OPERATOR Skye Jones Work Phone: [facility] Work Phone: Start: 12-06-2022 End: 12-10-2022 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: [facility] Work Phone: Start: 12-05-2022 End: 12-05-2022 Emergency department patient visit Bridgett Rivasstan [facility] 02 Start: 12-04-2022 End: 12-04-2022 Emergency department patient visit Agatha Menjivarprimo Facility:[facility] Start: 11-27-2022 End: 11-28-2022 Emergency department patient visit Skye Jones Facility:[facility] Start: 11-27-2022 End: 11-27-2022 Emergency department patient visit PEE Jones Work Phone: [facility] Work Phone: Start: 11-27-2022 End: 11-27-2022 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: [facility] Work Phone: Start: 11-22-2022 End: 11-23-2022 Emergency department patient visit Skye Jones Facility:[facility] Start: 11-22-2022 End: 11-23-2022 Emergency department patient visit PEE Jones Work Phone: [facility] Work Phone: Start: 11-22-2022 End: 11-23-2022 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: [facility] Work Phone: Start: 11-02-2022 End: 11-03-2022 Emergency department patient visit Grey Putnam Facility:[facility] Start: 11-02-2022 End: 11-03-2022 Emergency department patient visit Grey Putnam [facility] Start: 10-30-2022 End: 10-30-2022 Emergency department patient visit Eileen Lowry Facility:[facility] Start: 10-30-2022 End: 10-30-2022 Emergency department patient visit PEE Jones Work Phone: [facility] Work Phone: Start: 10-30-2022 End: 10-30-2022 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: [facility] Work Phone: Start: 10-28-2022 End: 10-28-2022 Emergency department patient visit Tari Medina Facility:[facility] Start: 10-28-2022 End: 10-28-2022 Emergency department patient visit OAKES MACHINE OPERATORAdrien Cheung Jones Work Phone: [facility] Work Phone: Start: 10-28-2022 End: 10-28-2022 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: [facility] Work Phone: Start: 10-27-2022 End: 10-28-2022 Emergency department patient visit Grey Putnam Facility:[facility] Start: 10-27-2022 End: 10-27-2022 Emergency department patient visit Grey Putnam [facility] Start: 10-19-2022 End: 10-19-2022 Emergency department patient visit Agatha May Shantell Facility:[facility] Start: 10-19-2022 End: 10-19-2022 [facility] Start: 10-16-2022 End: 10-16-2022 Emergency department patient visit OMI HUNT[facility] Start: 10-09-2022 End: 10-10-2022 Emergency department patient visit Debbie Doyle Facility:[facility] Start: 10-09-2022 End: 10-09-2022 Emergency department patient visit Debbie Doyle [facility] Start: 09-22-2022 End: 09-22-2022 Emergency department patient visit Sybil Muhammad Facility:[facility] Start: 09-21-2022 End: 09-22-2022 Emergency department patient visit Sybil Muhammad [facility] Start: 09-21-2022 End: 09-21-2022 Emergency department patient visit PEE Jones Work Phone: [facility] Work Phone: Start: 09-17-2022 End: 09-17-2022 Emergency department patient visit SKYE JONES [facility] Start: 09-17-2022 End: 09-17-2022 Emergency department patient visit Skye Haileach OAKES MACHINE OPERATOR - [employer] Work Phone: [facility] Comment on above: Generalized abdomina l pain (Primary Dx); Anxiety state Start: 09-16-2022 End: 09-16-2022 Subsequent hospital visit by physician Leon[facility] Comment on above: Canceled (Patient pr eference) Start: 09-08-2022 End: 09-09-2022 Emergency department patient visit Grey Putnam Facility:[facility] Start: 09-08-2022 End: 09-08-2022 Emergency department patient visit Grey Putnam [facility] Start: 09-06-2022 End: 09-07-2022 Emergency department patient visit Giacomo West Facility:[facility] Start: 09-06-2022 End: 09-06-2022 Emergency department patient visit PEE Jones Work Phone: [facility] Work Phone: Start: 09-06-2022 End: 09-06-2022 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: [facility] Work Phone: Start: 08-28-2022 End: 08-29-2022 Emergency department patient visit Skye Jones Facility:[facility] Start: 08-28-2022 End: 08-29-2022 Emergency department patient visit OAKES MACHINE OPERATOR Skye Jones Work Phone: [facility] Work Phone: Start: 08-28-2022 End: 08-29-2022 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: [facility] Work Phone: Start: 08-24-2022 End: 08-25-2022 Emergency department patient visit SKYE JONES [facility] Start: 08-24-2022 End: 08-25-2022 Emergency department patient visit Skye Jones OAKES MACHINE OPERATOR - [employer] Work Phone: [facility] Comment on above: Right flank pain (Pr imary Dx); Hematuria, unspecified type; Renal colic Start: 08-22-2022 End: 08-23-2022 Emergency department patient visit 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: [facility] Work Phone: Start: 08-22-2022 End: 08-23-2022 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: [facility] Work Phone: Start: 08-18-2022 End: 08-19-2022 Emergency department patient visit Grey Putnam Facility:[facility] Start: 08-18-2022 End: 08-18-2022 Emergency department patient visit Grey Putnam [facility] Start: 08-18-2022 End: 08-18-2022 ambulatory OAKES MACHINE OPERATOR Skyelazara Jones Work Phone: [facility] Work Phone: Start: 08-18-2022 End: 08-18-2022 Discharged Recurring OAKES MACHINE OPERATOR Skye Jones Work Phone: [facility] [place] Start: 08-18-2022 Registered Recurring OAKES MACHINE OPERATOR Aashish haile Jones Work Phone: [facility] [place] Start: 08-18-2022 OAKES MACHINE OPERATOR Skyelazara Carvalho Work Phone: [facility] [place] Start: 08-17-2022 End: 08-17-2022 Emergency department patient visit OAKES MACHINE OPERATOR Skye Karen Work Phone: [facility] Work Phone: Start: 08-17-2022 End: 08-17-2022 OAKES MACHINE OPERATOR Skye Jones Work Phone: [facility] Work Phone: Start: 08-15-2022 Registered Recurring OAKES MACHINE OPERATOR Aashish Murray Work Phone: [facility] [place] Start: 08-13-2022 End: 08-14-2022 Emergency department patient visit SKYE JONES [facility] Start: 08-13-2022 End: 08-13-2022 Emergency department patient visit Rickey Davis MD Work Phone: [facility] Comment on above: Flank pain (Primary Dx) Start: 08-13-2022 End: 08-13-2022 Emergency department patient visit Skye Jones [facility] Start: 08-11-2022 End: 08-11-2022 Emergency department patient visit SKYE JONES [facility] Start: 08-08-2022 End: 08-09-2022 Emergency department patient visit Grey Putnam Facility:[facility] Start: 08-08-2022 End: 08-08-2022 Emergency department patient visit Grey uPtnam [facility] Start: 08-04-2022 End: 08-05-2022 ambulatory SKYE JONES [facility] Start: 08-04-2022 End: 08-04-2022 Subsequent hospital visit by physician Leonela [facility] ED Comment on above: Arrived Start: 08-02-2022 End: 08-02-2022 Emergency department patient visit PEE Jones Work Phone: [facility] Work Phone: Start: 08-02-2022 End: 08-02-2022 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: [facility] Work Phone: Start: 07-31-2022 Registered Recurring PEE Murray Work Phone: [facility] [place] Start: 07-21-2022 End: 07-22-2022 Emergency department patient visit Sena Ding [facility] 21 Start: 07-17-2022 End: 07-18-2022 Emergency department patient visit Agatha Birdjessica Facility:[facility] Start: 07-17-2022 End: 07-17-2022 Emergency department patient visit Agatha Menjivarprimo [facility] Start: 07-10-2022 End: 07-11-2022 Emergency department patient visit SKYE JONES [facility] Start: 07-10-2022 End: 07-11-2022 Emergency department patient visit Skye Jones OAKES MACHINE OPERATOR - [facility] Work Phone: [facility] Comment on above: Right flank pain (Pr imary Dx); Nausea and vomiting, unspecified vomiting type Start: 07-03-2022 End: 07-04-2022 Emergency department patient visit PEE Jones Work Phone: [facility] Work Phone: Start: 07-03-2022 End: 07-04-2022 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: [facility] Work Phone: Start: 07-03-2022 Registered Recurring OAKES MACHINE OPERATOR Aashish Murray Work Phone: [facility] [place] Start: 06-19-2022 End: 06-19-2022 Emergency department patient visit Grey Putnam Facility:[facility] Start: 06-18-2022 End: 06-19-2022 Emergency department patient visit Grey Putnam [facility] Start: 06-08-2022 End: 06-09-2022 Emergency department patient visit 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: [facility] Start: 06-08-2022 End: 06-09-2022 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: [facility] Work Phone: Start: 06-05-2022 Registered Recurring OAKES MACHINE OPERATORAdrien Murray Work Phone: [facility] [place] Start: 05-27-2022 End: 05-28-2022 Emergency department patient visit PEE Jones Work Phone: [facility] Start: 05-14-2022 End: 05-15-2022 Emergency department patient visit SKYE JONES [facility] Start: 05-11-2022 End: 05-11-2022 Emergency department patient visit Agatha Stinson [facility] Start: 05-01-2022 End: 05-01-2022 Emergency department patient visit 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: [facility] Start: 04-25-2022 End: 04-25-2022 Admission to same day surgery center Omi Watkins [facility] Start: 04-21-2022 End: 04-22-2022 Emergency department patient visit Grey SSorin Putnam [facility] Start: 04-15-2022 ambulatory Ms. Skye Jones Facility: Start: 04-15-2022 End: 04-15-2022 Patient encounter procedure Omi Watkins [facility] Start: 04-12-2022 End: 04-13-2022 Emergency department patient visit PEE Cheung Karen Work Phone: [facility] Start: 04-07-2022 End: 04-07-2022 Emergency department patient visit PEE Cheung Jones Work Phone: [facility] Start: 03-31-2022 End: 04-01-2022 Emergency department patient visit PEE Jones Work Phone: [facility] Start: 03-12-2022 End: 03-12-2022 ambulatory Cassandra Claros Other [facility] Other Start: 03-12-2022 Office outpatient ne w 20 minutes Cassandra Claros [facility] Start: 03-08-2022 End: 03-08-2022 Emergency department patient visit Agatha Stinson [facility] Start: 02-25-2022 End: 02-26-2022 Emergency department patient visit PEE Cheung Karen Work Phone: [facility] Start: 02-07-2022 End: 02-07-2022 Emergency department patient visit SKYE E JONES [facility] Start: 01-18-2022 End: 01-18-2022 Emergency department patient visit SKYE JONES [facility] Start: 01-13-2022 End: 01-14-2022 Emergency department patient visit SKYE JONES [facility] Start: 12-06-2021 End: 12-06-2021 Emergency department patient visit PEE Cheung Karen Work Phone: [facility] Start: 12-03-2021 End: 12-06-2021 Evaluation and management of inpatient JAMEEL [facility] Start: 12-03-2021 End: 12-06-2021 Evaluation and management of inpatient Cristi Feng MD Work Phone: [facility] Med Surg Oncology Start: 11-15-2021 End: 11-15-2021 Emergency department patient visit [facility] Start: 11-12-2021 End: 11-12-[address] ESMER CARPENTER Facility: Start: 11-07-2021 End: 11-09-2021 Subsequent hospital visit by physician Ishmael [facility] Mri Room [facility] MRI Comment on above: Cervical radiculopat hy; Cervical spondylosis without myelopathy Start: 10-17-2021 End: 10-17-2021 Emergency department patient visit CAROLINE HATCH [facility] Start: 09-30-2021 End: 10-01-2021 Emergency department patient visit PEE Cheung Karen Work Phone: [facility] Start: 08-19-2021 End: 08-20-2021 Emergency department patient visit ROSHAN GOLDSMITH [facility] Start: 07-28-2021 End: 07-29-2021 ambulatory ISIDRA NJ MD Facility:[facility] Start: 07-09-2021 End: 07-09-2021 Emergency department patient visit [facility] Start: 06-25-2021 End: 06-25-2021 Office outpatient visit 15 minutes Genet FRANK Work Phone: [facility] Comment on above: Encounter for screen ing for COVID-19 (Primary Dx); Acute maxillary sinusitis, recurrence not specified Start: 06-13-2021 End: 06-14-2021 Emergency department patient visit PHYSICIAN LUZ [facility] Start: 06-10-2021 End: 06-10-2021 Emergency department patient visit Rickey Castle [facility] Emergency 14 Start: 05-28-2021 End: 05-28-2021 Emergency department patient visit PHYSICIAN LUZ [facility] Start: 04-23-2021 Evaluation and management of inpatient Gem Christopher [facility],PharmD [facility] Inpatient [facility] Start: 04-15-2021 End: 04-15-2021 Emergency department patient visit Yanely Coyle DO Work Phone: [facility] ED Comment on above: Right flank pain (Pr imary Dx); Acute cystitis with hematuria Start: 02-06-2021 End: 02-06-2021 ambulatory [facility] Start: 02-06-2021 End: 02-06-2021 Patient encounter procedure Tim Roper MD Work Phone: [facility] Comment on above: Kidney stone (Primar y Dx) Start: 01-31-2021 End: 02-02-2021 Emergency department patient visit Sena White MD Work Phone: [facility] Medical Observation Start: 01-14-2021 End: 01-14-2021 Emergency department patient visit [facility] Emergency Department Start: 12-27-2020 End: 12-27-2020 ambulatory ISIDRA NJ MD Facility:[facility] Start: 12-10-2020 End: 12-11-2020 Emergency department patient visit Dennis Aceves [facility] Emergency 09 Start: 12-04-2020 End: 12-04-2020 Emergency department patient visit SHAYNA GERARDO [facility] Start: 11-25-2020 End: 11-26-2020 Emergency department patient visit Raj Manning MD Work Phone: [facility] ED Comment on above: Pyelonephritis (Prim adonis Dx); Flank pain Start: 11-19-2020 End: 11-19-2020 Emergency department patient visit Ludin Burnette William FERNANDEZ Work Phone: [facility] Emergency Medicine Start: 11-05-2020 End: 11-05-2020 ambulatory ISIDRA NJ MD Facility:[facility] Start: 10-24-2020 End: 10-25-2020 Emergency department patient visit Debbie Gonzalez [facility] Emergency 04 Start: 10-23-2020 End: 10-24-2020 ambulatory ISIDRA NJ MD Facility:[facility] Start: 10-18-2020 End: 10-18-2020 Emergency department patient visit Lynnette Beth MD Work Phone: [facility] Emergency Department Start: 10-16-2020 End: 10-17-2020 Emergency department patient visit Lynnette Beth MD Work Phone: [facility] Emergency Department Start: 10-11-2020 End: 10-12-2020 ambulatory QUINCY SORIA PA-C Facility:[facility] Start: 10-01-2020 End: 10-01-2020 Emergency department patient visit Ezekiel Zeyad Work Phone: [facility] ED Comment on above: Acute cystitis with hematuria (Primary Dx) Start: 09-26-2020 End: 09-27-2020 Emergency department patient visit Skye Jones [facility] ED Comment on above: Right upper quadrant abdominal pain (Primary Dx); Right flank pain Start: 09-20-2020 End: 09-20-2020 Emergency department patient visit Jose Muller Work Phone: [facility] Emergency Department Start: 09-09-2020 End: 09-09-2020 Emergency department patient visit Lynnette Beth Work Phone: [facility] Emergency Department Start: 08-14-2020 End: 08-15-2020 Emergency department patient visit Lynnette Beth Work Phone: [facility] Emergency Department Comment on above: Generalized abdomina l pain (Primary Dx); Acute UTI Start: 07-16-2020 End: 07-16-2020 Emergency department patient visit Dominik Lucas Work Phone: [facility] Emergency Department Comment on above: Right flank pain (Pr imary Dx); Acute cystitis with hematuria Start: 07-08-2020 End: 07-08-2020 Emergency department patient visit Cristi Jang Jung Work Phone: [facility] Emergency Department Comment on above: Acute UTI (Primary D x); Acute pyelonephritis Start: 07-01-2020 End: 07-01-2020 Emergency department patient visit Raj Leigh Work Phone: [facility] ED Comment on above: Acute cystitis witho ut hematuria (Primary Dx); Left flank pain Start: 05-27-2020 End: 05-28-2020 Emergency department patient visit Saul Pena Work Phone: [facility] Comment on above: Lactic acidosis (April steven Dx); Pneumonia due to COVID-19 virus; Hyperglycemia; Right flank pain; Hypoxia; Tachycardia Start: 05-25-2020 End: 05-25-2020 Emergency department patient visit Yanely Coyle Work Phone: [facility] Comment on above: Anxiety state [...] department patient visit Yanely Coyle Work Phone: [facility] Comment on above: COVID-19 (Primary Dx ); Diarrhea, unspecified type; Hyperglycemia Start: 04-30-2020 End: 04-30-2020 Emergency department patient visit [facility] ED Comment on above: COVID-19 (Primary Dx ); Acute cystitis with hematuria Start: 04-29-2020 End: 04-29-2020 Emergency department patient visit Raj Lawton Kerri Work Phone: [facility] ED Comment on above: Flank pain (Primary Dx) Start: 03-20-2020 End: 03-20-2020 Emergency department patient visit [facility] ED Start: 03-04-2020 End: 03-05-2020 Emergency department patient visit [facility] ED Comment on above: Right flank pain (Pr imary Dx); Non-intractable vomiting with nausea, unspecified vomiting type Start: 02-19-2020 End: 02-19-2020 Emergency department patient visit Sesar Damon Work Phone: [facility] ED Comment on above: Nausea and vomiting, intractability of vomiting not specified, unspecified vomiting type (Primary Dx); Flank pain Start: 02-16-2020 End: 02-17-2020 Emergency department patient visit Rickey Davis Work Phone: [facility] ED Comment on above: Right flank pain (Pr imary Dx); Tachycardia Start: 02-16-2020 End: 02-18-2020 Subsequent hospital visit by physician [facility] Comment on above: Acute pain of right shoulder Start: 02-03-2020 Patient encounter procedure Jone GRANADOSFF-Epzqwmfdhzssip-Xptvmu eld Work Phone: Start: 01-19-2020 Patient encounter procedure Jone GRANADOSZW-Xgpumbqdtmulku-Gctdfc eld Work Phone: Start: 01-13-2020 End: 01-14-2020 Emergency department patient visit [facility] ED Comment on above: Bilious vomiting wit h nausea (Primary Dx); Right lower quadrant abdominal pain Start: 01-08-2020 End: 01-08-2020 Emergency department patient visit Noha S Dardir Work Phone: [facility] ED Comment on above: Acute UTI (Primary D x); Right flank pain Start: 10-20-2019 End: 10-20-2019 Emergency department patient visit Skey [facility] ED Comment on above: Left flank pain (April steven Dx) Start: 08-31-2019 End: 08-31-2019 Subsequent hospital visit by physician Linda Calle [place] [facility] Comment on above: Canceled (Other) Start: 08-30-2019 End: 08-30-2019 Subsequent hospital visit by physician Linda Fraga [facility] Comment on above: Canceled (Other) Start: 08-22-2019 End: 08-22-2019 Subsequent hospital visit by physician Linda Fraga [facility] Comment on above: Arrived Start: 08-18-2019 End: 08-18-2019 Emergency department patient visit [facility] ED Comment on above: Left flank pain (April steven Dx); Acute cystitis without hematuria Start: 08-17-2019 End: 08-17-2019 Subsequent hospital visit by physician Linda Fraga [facility] Comment on above: Arrived Start: 08-15-2019 End: 08-15-2019 Subsequent hospital visit by physician Linda Fraga [facility] Comment on above: Arrived Start: 08-10-2019 End: 08-10-2019 Subsequent hospital visit by physician Linda Fraga [facility] Comment on above: Arrived Start: 08-08-2019 End: 08-08-2019 Subsequent hospital visit by physician Linda Calle [place] [facility] Comment on above: Arrived Start: 07-14-2019 End: 07-14-2019 Emergency department patient visit Rickey Davis MD Work Phone: [facility] Comment on above: Right flank pain (Pr imary Dx) Start: 07-11-2019 End: 07-11-2019 Emergency department patient visit Abdulkadir Edouard DO [facility] Comment on above: Drug-seeking behavio r (Primary Dx); Right flank pain Start: 07-09-2019 End: 07-09-2019 Emergency department patient visit Harry Marshall MD Work Phone: [facility] Comment on above: Flank pain (Primary Dx); Kidney stone; Acute pyelonephritis Start: 04-26-2019 End: 04-26-2019 Emergency department patient visit Raj Mannign Work Phone: [facility] Comment on above: Flank pain (Primary Dx); Opioid withdrawal (HCC) Start: 04-17-2019 End: 04-22-2019 Evaluation and management of inpatient Abdulkadir Edouard [facility] Med Surg Unit Comment on above: Urinary tract infect ion associated with catheterization of urinary tract, unspecified indwelling urinary catheter type, subsequent encounter (Primary Dx); Hyperlipidemia, unspecified hyperlipidemia type Start: 04-12-2019 End: 04-12-2019 Emergency department patient visit Skye Jones [facility] Start: 04-10-2019 End: 04-10-2019 Emergency department patient visit Sesar Damon Work Phone: [facility] Comment on above: Acute UTI (Primary D x) Start: 04-05-2019 End: 04-05-2019 Emergency department patient visit Raj Manning Work Phone: [facility] Comment on above: Flank pain (Primary Dx) Start: 02-28-2019 End: 02-28-2019 Emergency department patient visit Raj Manning Work Phone: [facility] Comment on above: Acute cystitis witho ut hematuria (Primary Dx); Flank pain Start: 02-07-2019 End: 02-09-2019 Subsequent hospital visit by physician Fraga Ct Room 2 [facility] CT Scan Comment on above: Recurrent sinus infe ctions Start: 02-03-2019 End: 02-05-2019 Subsequent hospital visit by physician Fraga Ultrasound 2 [facility] Ultrasound Comment on above: Abnormal liver CT Start: 09-18-2018 End: 09-19-2018 Emergency department patient visit CRISTI YUSUF Facility:[id number] Start: 08-26-2018 End: 08-26-2018 Emergency department patient visit SKYE JONES Facility:[facility] Start: 10-15-2017 End: 10-15-2017 Emergency department patient visit SKYE JONES Facility:[facility] Start: 09-25-2014 End: 09-25-2014 Telephone encounter Karuna Taylor MD Work Phone: Gastroenterology Procedures Date Procedure Procedure Detail Performing Clinician Start: 08-19-2023 CT of abdomen and pe lvis without contrast PEE Jones Work Phone: Start: 07-09-2023 Gluc bld gluc mntr d [...] Phone: Start: 07-07-2023 CT angiography of thorax PEE Jones Work Phone: Start: 07-07-2023 CT of soft tissues o f neck with contrast PEE Jones Work Phone: Start: 07-01-2023 Gluc bld gluc mntr d ev cleared fda spec home use Unknown Provider Result Start: 07-01-2023 Gluc bld gluc mntr d ev cleared fda spec home use Unknown Provider Result Start: 07-01-2023 Comprehensive metabo lic panel Nicoletto Bolzan-Mariah [employer]AKES MACHINE OPERATOR - [employer] Work Phone: Start: 06-30-2023 End: 06-30-2023 Hemoglobin glycosylated a1c Ruben laurent MD Work Phone: Start: 06-30-2023 Fluoroscopy during operation Ruben Abdi MD Work Phone: Start: 06-30-2023 End: 06-30-2023 Anterior instrumentation 4-7 vertebral segments Ruben Abdi MD Work Phone: Start: 06-30-2023 End: 06-30-2023 Gluc bld gluc mntr dev cleared fda spec home use Unknown Provider Result Start: 01-28-2023 Ultrasonography of b ilateral kidneys 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: Start: 01-28-2023 Urine culture OAKES MACHINE OPERATOR Aashish lazara Jones Work Phone: Start: 12-06-2022 CT of abdomen and pe lvis without contrast 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: Start: 12-05-2022 Urine culture OAKES MACHINE OPERATOR Aashish lazara Jones Work Phone: Start: 11-27-2022 Diagnostic radiograp hy of abdomen 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: Start: 11-27-2022 Urine culture OAKES MACHINE OPERATOR Aashish lazara Jones Work Phone: Start: 11-22-2022 Ultrasonography of b ilateral kidneys 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: Start: 11-22-2022 Urine culture OAKES MACHINE OPERATOR Aashish lazara Jones Work Phone: Start: 10-28-2022 CT cervical spine wi thout contrast 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: Start: 10-28-2022 CT of abdomen and pe lvis without contrast 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: Start: 10-28-2022 CT of head without contrast 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: Start: 10-28-2022 CT of lumbar spine w ithout contrast 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: Start: 10-28-2022 Plain X-ray of left femur 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: Start: 10-28-2022 Plain X-ray of right shoulder 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: Start: 10-28-2022 Radiologic examinati on of knee 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: Start: 09-21-2022 Urine culture PEE Murray Work Phone: Start: 09-17-2022 Comprehensive metabo lic [...] of abdomen and pe lvis without contrast OAKES MACHINE OPERATORAdrien Haileach Work Phone: Start: 09-06-2022 Blood culture for ba cteria, including anaerobic screen PEE Haileach Work Phone: Start: 09-06-2022 Urine culture PEE Murray Work Phone: Start: 08-28-2022 CT of abdomen and pe lvis without contrast OAKES MACHINE OPERATORAdrien Haileach Work Phone: Start: 08-28-2022 Blood culture for ba cteria, including anaerobic screen PEE Haileach Work Phone: Start: 08-28-2022 Urine culture OAKES MACHINE OPERATORAdrien Acostaach Work Phone: Start: 08-24-2022 End: 08-24-2022 Comprehensive metabolic panel Eileen FRANK Work Phone: Start: 08-24-2022 Urinalysis microscopic only Eileen FRANK Work Phone: Start: 08-24-2022 Urnls dip stick/tabl et rgnt auto w/o microscopy Eileen FRANK Work Phone: Start: 08-23-2022 Blood culture for ba cteria, including anaerobic screen 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: Start: 08-22-2022 CT of abdomen and pe lvis without contrast OAKES MACHINE OPERATOR Skye Jones Work Phone: Start: 08-22-2022 Urine culture OAKES MACHINE OPERATOR Aashish lazara Haileach Work Phone: Start: 08-17-2022 Urine culture OAKES MACHINE OPERATOR Aashish lazara Jones Work Phone: Start: 08-17-2022 CT of abdomen and pe lvis without contrast 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: Start: 08-13-2022 Blood count complete auto&auto difrntl wbc Rickey Davis MD Work Phone: Start: 08-13-2022 Urinalysis microscopic only Rickey Davis MD Work Phone: Start: 08-13-2022 Urnls dip stick/tabl et rgnt auto w/o microscopy Rickey Davis MD Work Phone: Start: 08-02-2022 Urine culture OAKES MACHINE OPERATOR Aashish Murray Work Phone: Start: 08-02-2022 CT of abdomen and pe lvis without contrast PEE Jones Work Phone: Start: 07-10-2022 Ct abdomen w/o contr ast material Raj Cleveland PA-C Work Phone: Start: 07-10-2022 Comprehensive metabo lic panel Raj Cleveland PA-C Work Phone: Start: 07-10-2022 Urinalysis microscopic only Rickey Davis MD Work Phone: Start: 07-10-2022 Urnls dip stick/tabl et rgnt auto w/o microscopy Rickey Davis MD Work Phone: Start: 07-03-2022 Urine culture PEE Murray Work Phone: Start: 06-08-2022 Diagnostic radiograp hy of abdomen PEE Jones Work Phone: Start: 06-08-2022 Urine culture PEE Murray Work Phone: Start: 05-27-2022 CT of abdomen and pe lvis without contrast PEE Jones Work Phone: Start: 05-01-2022 CT of abdomen and pe lvis without contrast PEE Jones Work Phone: Start: 04-25-2022 Arthroscopy of shoulder Omi Watkins Start: 04-12-2022 CT of abdomen and pe lvis without contrast PEE Jones Work Phone: Start: 03-31-2022 Diagnostic radiograp hy of abdomen PEE Jones Work Phone: Start: 03-31-2022 Ultrasonography of b ilateral kidneys PEE Jones Work Phone: Start: 02-26-2022 Diagnostic radiograp hy of abdomen PEE Jones Work Phone: Start: 12-06-2021 Plain X-ray of right elbow PEE Jones Work Phone: Start: 12-06-2021 Plain X-ray of right shoulder OAKES MACHINE OPERATOR Skye Jones Work Phone: Start: 12-06-2021 Glucose measurement Gen [facility] Work Phone: Start: 12-06-2021 Comprehensive metabo lic panel Roshan Espino MD Work Phone: Start: 12-05-2021 Glucose measurement [facility] Work Phone: Start: 12-05-2021 Glucose measurement [facility] Work Phone: Start: 12-05-2021 Glucose measurement [facility] Work Phone: Start: 12-05-2021 Culture bacterial quanttative colony count urine Jameel Cadena MD Work Phone: Start: 12-05-2021 Glucose measurement [facility] Work Phone: Start: 12-05-2021 Comprehensive metabo lic panel Roshan Espino MD Work Phone: Start: 12-04-2021 Glucose measurement Gen [facility] Work Phone: Start: 12-04-2021 Glucose measurement [facility] Work Phone: Start: 12-04-2021 Glucose measurement [facility] Work Phone: Start: 12-04-2021 Glucose measurement [facility] Work Phone: Start: 12-04-2021 Ecg routine ecg w/le ast 12 lds trcg only w/o i&r Roshan Espino MD Work Phone: Start: 12-04-2021 Electrocardiogram Provi gene Not In System Start: 12-04-2021 Assay of lipase Winnie Espino MD Work Phone: Start: 12-04-2021 Ecg routine ecg w/le ast 12 lds w/i&r Shruthi Christine [employer] Work Phone: Start: 12-04-2021 Ct angiography chest w/contrast/noncontrast Shruthi Christine [employer] Work Phone: Start: 12-04-2021 Assay of lactate Shruthi Christine [employer] Work Phone: Start: 12-04-2021 Drug tst prsmv instr mnt chem analyzers pr date Shruthi Christine [employer] Work Phone: Start: 12-04-2021 End: 12-04-2021 Urnls dip stick/tablet reagent auto microscopy Shruthi Stone Emmett [facility] Work Phone: Start: 12-04-2021 Ct abdomen & pelvis w/o contrast material Shruthi Christnie [facility] Work Phone: Start: 12-03-2021 Comprehensive metabo lic panel Shruthi Christine [facility] Work Phone: Start: 12-03-2021 Hepatic function panel Roshan Espino MD Work Phone: Start: 11-07-2021 Mri spinal canal cer vical w/o contrast matrl Delphine Freeman OAKES MACHINE OPERATOR - [facility] Work Phone: Start: 09-30-2021 CT of abdomen and pe lvis without contrast 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: Start: 09-30-2021 Urine culture OAKES MACHINE OPERATORAdrien Murray Work Phone: Start: 06-25-2021 SARS-COV-2 RAPID Genet Alonzo FRANK Work Phone: Start: 04-15-2021 Comprehensive metabo [...] Culture bacterial quanttative colony count urine Fei Jones PA-C Work Phone: Start: 01-14-2021 Radiologic exam ches t single view Harry Flood [employer] Work Phone: Start: 12-04-2020 Urinalysis SHAYNA BOSTON Comment on above: Result Comment: URIN ALYSIS Performed By: #### [id number] #### [facility],[address] [place] [address] Start: 11-25-2020 Comprehensive metabo lic panel Raj Manning MD Work Phone: Start: 11-25-2020 Urinalysis microscopic only Raj Manning MD Work Phone: Start: 11-25-2020 Urnls dip stick/tabl et rgnt auto w/o microscopy Raj Manning MD Work Phone: Start: 11-19-2020 Radiologic exam comp lete acute abdomen series Ludin Burnette Pay DO Work Phone: Start: 11-19-2020 Complete blood count with white cell differential, automated Ludin L Pay DO Work Phone: Start: 11-19-2020 Comprehensive metabo lic panel Ludin L Pay DO Work Phone: Start: 11-19-2020 Urinalysis microscopic only Ludin L Pay DO Work Phone: Start: 11-19-2020 Urinalysis, reagent strip without microscopy Ludin Burnette Pay DO Work Phone: Start: 10-18-2020 Radiologic exam ches t 2 views Vesna FRANK-C Work Phone: Start: 10-18-2020 Assay of lipase Vesna FRANK-C Work Phone: Start: 10-18-2020 TIAN TOP Triage [facility] Start: 10-18-2020 End: 10-18-2020 Hepatic function panel Vesna FRANK-C Work Phone: Start: 10-18-2020 LIGHT GREEN TOP Triage Protocol Emergency Start: 10-18-2020 RAINBOW DRAW Triage [facility] Start: 10-18-2020 SARS-CoV-2 (COVID-19 ) RNA [Presence] [...] exam ches t single view Esmer Tamayo PA-Rosa Work Phone: Start: 10-16-2020 Ecg routine ecg [...] Phone: Start: 09-26-2020 Assay of lipase Raj Acuna patience Work Phone: Start: 09-26-2020 Comprehensive metabo lic panel Raj Cleveland Work Phone: Start: 09-26-2020 Urinalysis microscopic only Raj Cleveland Work Phone: Start: 09-26-2020 Urnls dip stick/tabl et rgnt auto w/o microscopy Raj Cleveland Work Phone: Start: 09-20-2020 Diagnostic radiograp hy of abdomen Jose Muller Work Phone: Start: 09-20-2020 Choriogonadotropin ( test) [Presence] in Urine Jose Muller Work Phone: Start: 09-20-2020 Culture bacterial quanttative colony count urine Jose Muller Work Phone: Start: 09-20-2020 Urinalysis microscopic only Jose Muller Work Phone: Start: 09-20-2020 Urinalysis, reagent strip without microscopy Jose Muller Work Phone: Start: 09-09-2020 TIAN TOP Lynnette Beth Work Phone: Start: 09-09-2020 LAVENDER TOP Lynnette Beth Work Phone: Start: 09-09-2020 LIGHT BLUE TOP Lynnette Pyle Work Phone: Start: 09-09-2020 LIGHT GREEN TOP Lynnette fine [employer] Work Phone: Start: 09-09-2020 MINT GREEN TOP Lynnette Pyle Work Phone: Start: 09-09-2020 RAINBOW DRAW Lynnette Beth Work Phone: Start: 09-09-2020 Urinalysis Lynnette alexander [employer] Work Phone: Start: 08-22-2020 Adult depression scr eening assessment Lynnette Beth Start: 08-22-2020 Microscopic observat ion [Identifier] in Cervix by Cyto stain Lynnette Beth Start: 08-14-2020 Ct abdomen & pelvis [...] Work Phone: Start: 08-14-2020 LAVENDER TOP Lynnette Beth Work Phone: Start: 08-14-2020 LIGHT BLUE TOP Lynnette Pyle Work Phone: Start: 08-14-2020 Lipase [Enzymatic activity/volume] in Serum or Plasma Esmer Tamayo Work Phone: Start: 08-14-2020 MINT GREEN TOP Lynnette Pyle Work Phone: Start: 08-14-2020 RAINBOW DRAW Lynnette alexander [employer] Work Phone: Start: 07-16-2020 CT of urinary tract Mol fabian Saini Work Phone: Start: 07-16-2020 Basic metabolic 2000 panel - Serum or Plasma Yulissa Saini Work Phone: Start: 07-16-2020 Choriogonadotropin.b eta subunit ( test) [Presence] in Serum or Plasma Yulissa Saini Work Phone: Start: 07-16-2020 Complete blood count with white cell differential, automated Yulissa Saini Work Phone: Start: 07-16-2020 Complete blood count with white cell differential, manual Yulissa Saini Work Phone: Start: 07-16-2020 Hepatic function 200 0 panel - Serum or Plasma Yulissa Saini Work Phone: Start: 07-16-2020 Lactate [Moles/volum e] in Serum or Plasma Yulissa Saini Work Phone: Start: 07-16-2020 Lipase [Enzymatic activity/volume] in Serum or Plasma Yulissa Saini Work Phone: Start: 07-16-2020 Urinalysis Yulissa Saini Work Phone: Start: 07-08-2020 Radiologic exam ches t single view Esmer aTmayo Work Phone: Start: 07-08-2020 CT of urinary [...] Result Start: 05-28-2020 Assay of lactate Saul D Sedar Work Phone: Start: 05-28-2020 Blood count complete auto&auto difrntl wbc Saul D Sedar Work Phone: Start: 05-28-2020 C-reactive protein Saul D Sedar Work Phone: Start: 05-28-2020 Fibrin dgradj produc ts d-dimer quantitative Saul D Sedar Work Phone: Start: 05-28-2020 Fibrinogen activity Col e D Sedar Work Phone: Start: 05-28-2020 Gluc bld gluc mntr d ev cleared fda spec home use Unknown Provider Result Start: 05-28-2020 Hemoglobin glycosylated a1c Saul D Sedar Work Phone: Start: 05-28-2020 Sedimentation rate r bc automated Saul D Sedar Work Phone: Start: 05-27-2020 Ct angiography chest [...] Blood count complete auto&auto difrntl wbc Yanely Julia Jonna Work Phone: Start: 05-25-2020 Comprehensive metabo lic panel Yanely Julia Jonna Work Phone: Start: 05-25-2020 Fibrin dgradj produc ts d-dimer quantitative Yanely O Jonna Work Phone: Start: 05-25-2020 Prothrombin time Yanely Julia Jonna Work Phone: Start: 05-18-2020 Gluc bld gluc mntr d ev cleared fda spec home use Unknown Provider Result Start: 05-18-2020 Gluc bld gluc mntr d ev cleared fda spec home use Unknown Provider Result Start: 05-18-2020 Assay of ferritin Bleda r Eva Work Phone: Start: 05-18-2020 Assay of magnesium Bled ar Eva Work Phone: Start: 05-18-2020 Blood count complete auto&auto difrntl wbc Kristi Craig Work Phone: Start: 05-18-2020 C-reactive protein h igh sensitivity Bledar Kovaci Work Phone: Start: 05-18-2020 Fibrin dgradj produc ts d-dimer quantitative Bledar Kovaci Work Phone: Start: 05-18-2020 Renal function panel Bl edar Wilfredovaci Work Phone: Start: 05-18-2020 Gluc bld gluc [...] Start: 05-17-2020 Renal function panel Bl edar Wilfredovaci Work Phone: Start: 05-16-2020 Gluc bld gluc [...] Start: 05-16-2020 Renal function panel Bl edar Kovaci Work [...] Start: 05-15-2020 Renal function panel Bl edar Kovaci Work Phone: Start: 05-14-2020 Gluc bld gluc [...] Start: 05-14-2020 Renal function panel Bl edar Kovaci Work Phone: Start: 05-14-2020 Gluc bld gluc [...] Start: 05-13-2020 Renal function panel Bl edar Kovaci Work Phone: Start: 05-12-2020 Gluc bld gluc mntr d ev cleared fda spec home use Unknown Provider Result Start: 05-12-2020 Gluc bld gluc mntr d ev cleared fda spec home use Unknown Provider Result Start: 05-12-2020 Radiologic exam ches t single view Bledar Kovaci Work Phone: Start: 05-12-2020 Gluc bld gluc mntr d ev cleared fda spec home use Unknown Provider Result Start: 05-12-2020 Gluc bld gluc mntr d ev cleared fda spec home use Unknown Provider Result Start: 05-12-2020 Assay of ferritin Bleda r Kovaci Work Phone: Start: 05-12-2020 Assay of magnesium Bled ar Kovaci Work Phone: Start: 05-12-2020 Blood count complete auto&auto difrntl wbc Kristi Craig Work Phone: Start: 05-12-2020 C-reactive protein h igh sensitivity Bledar Kovaci Work Phone: Start: 05-12-2020 Fibrin dgradj produc [...] Start: 05-11-2020 Comprehensive metabo lic panel Marcella Robins Work Phone: Start: 05-11-2020 Natriuretic peptide Ble [...] Start: 05-10-2020 Comprehensive metabo lic panel Marcella Robins Work Phone: Start: 05-09-2020 Gluc bld gluc [...] Start: 05-09-2020 Comprehensive metabo lic panel Marcella Efrain Robins Work Phone: Start: 05-09-2020 Fibrin dgradj produc [...] Start: 05-08-2020 Assay of ferritin Bleda r Wilfredobouchra Work Phone: Start: 05-08-2020 Assay of magnesium Bled ar Eva Work Phone: Start: 05-08-2020 Blood count complete auto&auto difrntl wbc Kristi Craig Work Phone: Start: 05-08-2020 C-reactive protein h igh sensitivity Bledar Belli Work Phone: Start: 05-08-2020 Comprehensive metabo lic panel Marcella Efrain Robins Work Phone: Start: 05-08-2020 Fibrin dgradj produc ts d-dimer quantitative Bledar Kovaci Work Phone: Start: 05-08-2020 Hemoglobin glycosylated a1c Bledar Kovaci Work Phone: Start: 05-08-2020 Radiologic exam ches t single view Marcella Robins Work Phone: Start: 05-08-2020 RADIOLOGY REPORT Hpf Sc anning Start: 05-08-2020 TRANSFUSE CONVALESCE NT PLASMA Marcella Robins Work Phone: Start: 05-07-2020 Gluc bld gluc mntr d ev cleared fda spec home use Unknown Provider Result Start: 05-07-2020 Antibody screen rKisti soni Start: 05-07-2020 Gluc bld gluc mntr d ev cleared fda spec home use Unknown Provider Result Start: 05-07-2020 POCT ARTERIAL Unknown P rovider Result Start: 05-07-2020 Blood typing serologic abo Marcellaefrain Robins Work Phone: Start: 05-07-2020 PREPARE COVID-19 CONVALESCENT PLASMA Marcella Zuniga Shimon Work Phone: Start: 05-07-2020 Renal function panel Bl edrod Velasquez Work Phone: Start: 05-07-2020 Radiologic exam ches t single view Bledar Eva Work Phone: Start: 05-07-2020 Assay of magnesium [...] Blood count complete auto&auto difrntl wbc Kristi Rafa Work Phone: Start: 05-07-2020 End: 05-07-2020 Gluc [...] Phone: Start: 05-07-2020 Assay of phosphorus inorganic Zoltanobir aNdia Work Phone: Start: 05-07-2020 Basic metabolic pane [...] Start: 05-05-2020 Ct angiography chest w/contrast/noncontrast Deja Hightower Work Phone: Start: 05-05-2020 Sedimentation rate r bc automated Deja Hightower Work Phone: Start: 05-05-2020 POCT ARTERIAL Deja Fernando Mu rphy Work Phone: Start: 05-05-2020 POCT VENOUS Deja Fernando Mur phy Work Phone: Start: 05-05-2020 Ecg routine ecg w/le ast 12 lds i&r only Deja Hightower Work Phone: Start: 05-05-2020 Radiologic exam ches t single view Deja Hightower Work Phone: Start: 05-05-2020 Assay of ferritin Deja Hightower Work Phone: Start: 05-05-2020 Assay of troponin quantitative Deja Hightower Work Phone: Start: 05-05-2020 Blood count complete auto&auto difrntl wbc Deja Hightower Work Phone: Start: 05-05-2020 C-reactive protein h igh sensitivity Deja Hightower Work Phone: Start: 05-05-2020 Comprehensive metabo lic panel Deja Hightower Work Phone: Start: 05-05-2020 Fibrin dgradj produc ts d-dimer quantitative Deja Hightower Work Phone: Start: 05-05-2020 Procalcitonin (pct) Nara levi Hightower Work Phone: Start: 05-01-2020 End: 05-01-2020 [...] Hightower Work Phone: Start: 04-30-2020 COVID-19 Deja Fernando Mur phy Work Phone: Start: 04-30-2020 Iaad ia streptococcu s group a Deja Hightower Work Phone: Start: 04-30-2020 Iaadiadoo influenza Nara Hightower Work Phone: Start: 04-30-2020 Blood count complete auto&auto difrntl wbc Deja Hightower Work Phone: Start: 04-30-2020 Comprehensive metabo lic panel Deja Hightower Work Phone: Start: 04-30-2020 Urinalysis microscopic only Deja Hightower Work Phone: Start: 04-30-2020 Urnls dip [...] Phone: Start: 03-04-2020 Assay of lactate Raj Cleveland Work Phone: Start: 03-04-2020 Assay of lipase Raj morin Work Phone: Start: 03-04-2020 Blood count complete auto&auto difrntl wbc Raj Cleveland Work Phone: Start: 03-04-2020 Comprehensive metabo lic panel Raj Cleveland Work Phone: Start: 03-04-2020 Urinalysis microscopic only Raj Cleveland Work Phone: Start: 03-04-2020 Urnls dip stick/tabl et rgnt auto w/o microscopy Raj Cleveland Work Phone: Start: 02-19-2020 Blood count complete auto&auto difrntl wbc Sesar Shepherdr Work Phone: Start: 02-19-2020 Comprehensive metabo lic [...] w/o microscopy Rickey Davis Work Phone: Start: 01-08-2020 Assay of amylase [...] Phone: Start: 10-20-2019 Urinalysis microscopic only Sigrid Okicki Work Phone: Start: 10-20-2019 Urnls dip stick/tabl et rgnt auto w/o microscopy Sigrid Okicki Work Phone: Start: 08-18-2019 Urinalysis microscopic only [...] Ct abdomen & pelvis w/o contrast material Harry Marshall MD Work Phone: Start: 07-09-2019 Comprehensive metabo lic panel Harry Marshall MD Work Phone: Start: 07-09-2019 Urnls dip stick/tabl et rgnt auto w/o microscopy Harry Marshall MD Work Phone: Start: 04-26-2019 Assay of amylase Raj Manning Work Phone: Start: 04-26-2019 Assay of lactate Raj Manning Work Phone: Start: 04-26-2019 Assay of lipase Raj Manning Work Phone: Start: 04-26-2019 Blood count complete auto&auto difrntl wbc Raj Manning Work Phone: Start: 04-26-2019 Urinalysis microscopic only Raj Manning Work Phone: Start: 04-26-2019 Urnls dip stick/tabl et rgnt auto w/o microscopy Raj Manning Work Phone: Start: 04-22-2019 Gluc bld gluc mntr d ev cleared fda spec home use Unknown Provider Result Start: 04-21-2019 Gluc bld gluc mntr d ev cleared fda spec home use Unknown Provider Result Start: 04-21-2019 Gluc bld gluc mntr d ev cleared fda spec home use Unknown Provider Result Start: 04-21-2019 Ct abdomen & pelvis w/o contrst 1/> body re Candidar Felix Work Phone: Start: 04-21-2019 Gluc bld gluc mntr d ev cleared fda spec home use Unknown Provider Result Start: 04-21-2019 Blood count complete auto&auto difrntl wbc Candidar Felix Work Phone: Start: 04-21-2019 SPECIMEN REJECTION Andrew Washington Work Phone: Start: 04-21-2019 Comprehensive metabo lic panel Andrew Washington Work Phone: Start: 04-21-2019 Gluc [...] Unknown Provider Result Start: 04-18-2019 SPECIMEN REJECTION Harsha Morataya Work Phone: Start: 04-18-2019 Assay of lactate Milan Morataya Work Phone: Start: 04-18-2019 Assay of magnesium Same fernanda Morataya Work Phone: Start: 04-18-2019 Blood count complete auto&auto difrntl wbc Milan Morataya Work Phone: Start: 04-18-2019 Gluc bld gluc mntr d ev cleared fda spec home use Unknown Provider Result Start: 04-17-2019 Ct abdomen & pelvis w/o contrast material Abdulkadir Edouard Start: 04-17-2019 Assay of lactate Abdulkadir Edouard Start: 04-17-2019 Assay of lipase Abdulkadir grimaldo Start: 04-17-2019 Basic metabolic pane l calcium [...] difrntl wbc Sesar Damon Work Phone: Start: 04-10-2019 Comprehensive metabo lic panel Sesar Damon Work Phone: Start: 04-10-2019 Urinalysis microscopic only Raj Cristofer Work Phone: Start: 04-10-2019 Urnls dip stick/tabl et rgnt auto w/o microscopy Raj Cleveland Work Phone: Start: 04-05-2019 Blood count complete auto&auto difrntl wbc Raj Jered Kerri Work Phone: Start: 04-05-2019 Comprehensive metabo lic [...] Work Phone: Start: 07-21-2011 Colonoscopy Gem davis [facility],PharmD Hernia of abdominal cavity (disorder) Astrit Hajdari History of cholecystectomy A strit Hajdari History of decompres sully of median nerve Astrit Hajdari History of total hysterectomy Astrit Hajdari Tonsil and/or adenoi d hypertrophy (disorder) Astrit Hajdari Urine culture PEE Carvalho Work Phone: Urine culture PEE Carvalho Work Phone: Plan of Treatment Date Care Activity Detail Author Start: 12-01-2032 DTaP/Tdap/Td vaccine (2 - Td or Tdap) DTaP/Tdap/Td vaccine (2 - Td or Tdap) [employer] Start: 08-22-2025 Screening for malignant neoplasm of cervix Pap Smear [facility] Start: 2025 Shingles Vaccine (1 of 2) Shingles Vaccine (1 of 2) [employer] Work Phone: Start: 07-01-2024 GFR test (Diabetes, CKD 3-4, OR last GFR 15-59) GFR test (Diabetes, CKD 3-4, OR last GFR 15-59) [employer] Start: 09-29-2023 Hemoglobin A1c measurement A1C test (Diabetic or Prediabetic) [facility] Start: 09-18-2023 GFR test (Diabetes, CKD 3-4, OR last GFR 15-59) GFR test (Diabetes, CKD 3-4, OR last GFR 15-59) [facility] Start: 09-07-2023 End: 09-07-2023 Patient encounter procedure [facility] Comment on above: Follow Up Start: 08-24-2023 GFR test (Diabetes, CKD 3-4, OR last GFR 15-59) GFR test (Diabetes, CKD 3-4, OR last GFR 15-59) [facility] Start: 08-19-2023 Plain chest X-ray XR chest 2V* [facility] Start: 08-11-2023 GFR test (Diabetes, CKD 3-4, OR last GFR 15-59) GFR test (Diabetes, CKD 3-4, OR last GFR 15-59) [facility] Start: 07-29-2023 End: 07-29-2023 Patient encounter procedure 07/29/2023 1:00 PM EST Office Visit [facility] Neurosurgery [address] [place] [id number] Ruben Abdi MD [address] [address] POST OP: [facility] - 06/30/23 - C 5-6, C 6-7 ACDF [facility] Neurosurgery Comment on above: POST OP: [facility] - 06/30/23 - C 5-6, C 6-7 A CDF Start: 07-28-2023 Depression Monitoring [facility] Start: 07-28-2023 Depression Screen Depression Screen [facility] Start: 07-28-2023 Hemoglobin A1c measurement A1C test (Diabetic or Prediabetic) [facility] [employer] Start: 07-26-2023 [facility] Start: 07-23-2023 Hospital admission [facility] Start: 07-21-2023 End: 06-30-2024 XR Cervical spine 2 or 3 Views XR CERVICAL SPINE (2-3 VIEWS) Imaging Routine Cervical stenosis of spine Expected: 07/21/2023, Expires: 06/30/2024 [facility] Comment on above: Expected: 07/21/2023, Expires: Start: 07-16-2023 End: 07-16-2023 Patient encounter procedure 07/16/2023 11:30 AM EST Office Visit [facility] Pain Management [address] [place] [address] Sarah Yarbrough, OAKES MACHINE OPERATOR - WASTE HAND [address] [place] [address] POST OP: JUSTIN @ [facility] 06/30/23 - C 5-6, C 6-7 ACDF [facility] Pain Management Comment on above: POST OP: JUSTIN @ [facility] 06/30/23 - C 5-6, C 6-7 ACDF Start: 07-15-2023 End: 07-15-2023 Patient encounter procedure 07/15/2023 10:30 AM EST Office Visit [facility] [address] [place] [address] Skye Jones OAKES MACHINE OPERATOR - [employer] [address] [place] [address] [facility] Start: 07-10-2023 GFR test (Diabetes, CKD 3-4, OR last GFR 15-59) GFR test (Diabetes, CKD 3-4, OR last GFR 15-59) [facility] Start: 05-14-2023 Diabetic retinal exam Diabetic retinal exam [facility] Start: 05-14-2023 Glaucoma screening Diabetic retinal exam [facility] Start: 04-03-2023 [facility] Start: 03-29-2023 Referral to Deputy Coroner [facility] Start: 03-29-2023 Hospital admission [facility] Start: 03-04-2023 Hemoglobin A1c measurement A1C test (Diabetic or Prediabetic) [facility] Start: 02-01-2023 [facility] Start: 01-29-2023 Hospital admission [facility] Start: 01-28-2023 Ultrasonography of bilateral kidneys [facility] Start: 01-28-2023 US Kidney - bilateral [facility] Start: 01-28-2023 [facility] Start: 01-27-2023 Influenza vaccination Flu vaccine (#1) [facility] Start: 01-22-2023 [facility] Start: 01-18-2023 [facility] Start[facility] 01-18-2023 Referral to [facility] Start: 01-18-2023 Hospital admission [facility] Start: 01-03-2023 [facility] Start: 12-31-2022 [facility] Start: 12-17-2022 [facility] Start: 12-14-2022 Referral to [facility] Start: 12-14-2022 [facility] Start: 12-10-2022 [facility] Start: 12-06-2022 Referral to clinical lathe machine operator [facility] Start: 12-06-2022 End: 12-06-2022 Referral to [facility] Start: 12-06-2022 [facility] Start: 11-27-2022 Diagnostic radiography of abdomen [facility] Start: 11-27-2022 Bacteria identified in Urine by Culture [facility] Start: 11-27-2022 End: 11-27-2022 Patient encounter procedure 11/27/2022 Office Visit Family Medicine Skye Jones, OAKES MACHINE OPERATOR - [employer]E HAND [address] [place] [address] [facility] Start: 11-22-2022 Ultrasonography of bilateral kidneys US renal BI [facility] Start: 11-22-2022 US Kidney - bilateral [facility] Start: 11-22-2022 Bacteria identified in Urine by Culture [facility] Start: 11-19-2022 Urine screening for protein Diabetic Alb to Cr ratio (uACR) test [facility]ALINA [facility] Start: 10-28-2022 CT cervical spine without contrast CT cervical spine wo con [facility] Start: 10-28-2022 CT Cervical spine WO contrast [facility] Start: 09-18-2022 End: 09-18-2022 Patient encounter procedure 09/18/2022 [facility] Start: 09-17-2022 End: 09-17-2022 Patient encounter procedure 09/17/2022 [facility] Start: 09-16-2022 End: 09-16-2022 Patient encounter procedure 09/16/2022 [facility]ointment [facility] Start: 09-06-2022 End: 09-06-2022 [facility] Start: 09-06-2022 CT Abdomen and Pelvis WO contrast [facility] Start: 09-06-2022 CT of abdomen and pelvis without contrast [facility] Start: 08-28-2022 CT Abdomen and Pelvis WO contrast [facility] Start: 08-28-2022 CT of abdomen and pelvis without contrast [facility] Start: 08-28-2022 [facility] Start: 08-27-2022 End: 08-27-2022 Patient encounter procedure 08/27/2022 Office Visit Family Medicine Skye Jones, OAKES MACHINE OPERATOR - [employer]E HAND [address] [place] [address] [facility] Start: 08-23-2022 Bacteria identified in Blood by Culture Blood Culture [facility] Start: 08-22-2022 CT Abdomen and Pelvis WO contrast [facility] Start: 08-22-2022 CT of abdomen and pelvis without contrast CT abdomen pelvis wo con [facility] Start: 08-22-2022 Bacteria identified in Urine by Culture [facility] Start: 08-17-2022 Bacteria identified in Urine by Culture Urine Culture [facility] Start: 08-17-2022 CT Abdomen and Pelvis WO contrast [facility] Start: 08-17-2022 CT of abdomen and pelvis without contrast CT abdomen pelvis wo con [facility] Start: 08-02-2022 Bacteria identified in Urine by Culture Urine Culture [facility] Start: 08-02-2022 CT Abdomen and Pelvis WO contrast [facility] Start: 08-02-2022 CT of abdomen and pelvis without contrast CT abdomen pelvis wo [facility] Start: 07-28-2022 End: 07-28-2022 Patient encounter procedure 07/28/2022 Office Visit Family Medicine Skye Jones, OAKES MACHINE OPERATOR - [employer]E HAND [address] [place] [address] [facility] Start: 07-24-2022 Depression Screen Depression Screen [facility] Start: 07-03-2022 Bacteria identified in Urine by Culture [facility] Start: 06-08-2022 Diagnostic radiography of abdomen [facility] Start: 05-27-2022 CT Abdomen and Pelvis WO contrast [facility] Start: 05-27-2022 CT of abdomen and pelvis without contrast CT abdomen pelvis wo [facility] Start: 05-14-2022 Glaucoma screening Diabetic retinal exam [facility] [employer] Start: 05-01-2022 CT Abdomen and Pelvis WO contrast [facility] Start: 05-01-2022 CT of abdomen and pelvis without contrast CT abdomen pelvis wo [facility] Start: 04-15-2022 Creatinine [facility] Start: 04-15-2022 Potassium monitoring Potassium monitoring [facility] [employer] Phone: Start: 04-12-2022 CT Abdomen and Pelvis WO contrast [facility] Start: 04-12-2022 CT of abdomen and pelvis without contrast CT abdomen pelvis wo [facility] Start: 03-31-2022 Diagnostic radiography of abdomen [facility] Start: 03-31-2022 Ultrasonography of bilateral kidneys US renal BI [facility] Start: 03-31-2022 US Kidney - bilateral [facility] Start: 02-27-2022 Influenza vaccination Flu vaccine (Season Ended) [employer] Start: 01-27-2022 Influenza vaccination Flu vaccine (#1) [facility] Start: 11-25-2021 Creatinine measurement Creatinine monitoring [employer] Phone: Start: 11-25-2021 Potassium monitoring Potassium monitoring [employer] Phone: Start: 10-22-2021 Hemoglobin A1c measurement A1C test (Diabetic or Prediabetic) [employer] Start: 10-01-2021 Creatinine measurement Creatinine monitoring [employer] Phone: Start: 10-01-2021 Potassium monitoring Potassium monitoring [employer] Phone: Start: 09-26-2021 Creatinine measurement Creatinine monitoring [employer] Phone: Start: 09-26-2021 Potassium monitoring Potassium monitoring [employer] Phone: Start: 08-22-2021 Adolescent depression screening assessment Depression Screening (PHQ9) [facility] Start: 08-22-2021 Depression screening using PHQ-9 (Patient Health Questionnaire 9) score [facility] Start: 08-14-2021 End: 08-14-2021 Patient encounter procedure [facility] Start: 08-09-2021 End: 02-06-2022 Radiography of [id number] XR Abdomen AP Imaging Routine Kidney stone Expected: 08/09/2021, Expires: 02/06/2022 [facility] Comment on above: Expected: 08/09/2021, Expires: Start: 08-09-2021 End: 08-09-2021 Patient encounter procedure [facility] Start: 07-31-2021 Hemoglobin A1c measurement A1C [facility] Start: 07-21-2021 Screening for malignant neoplasm of colon [facility] Start: 07-01-2021 Creatinine measurement Creatinine monitoring [facility] [place] Start: 07-01-2021 Potassium monitoring Potassium monitoring [employer] [place], [place] Start: 05-27-2021 Creatinine measurement Creatinine monitoring [facility] [place] Start: 05-27-2021 Potassium monitoring Potassium monitoring [facility] [place] Start: 05-25-2021 Creatinine measurement Creatinine monitoring [facility] [place] Start: 05-25-2021 Potassium monitoring Potassium monitoring [facility] [employer] Start: 05-17-2021 [facility] Start: 05-17-2021 Potassium monitoring Potassium monitoring [facility] [employer] Start: 02-27-2021 Influenza vaccination [facility] Start: 01-11-2021 Statin Therapy Statin Therapy [facility] [employer] Start: 08-26-2020 HbA1c (Bld) [Mass fraction] A1C test (Diabetic or Prediabetic) [place] Start: 08-26-2020 Hemoglobin A1c measurement A1C test (Diabetic or Prediabetic) [facility] [employer] Phone: Start: 08-08-2020 HbA1c (Bld) [Mass fraction] A1C test (Diabetic or Prediabetic) [place] Start: 07-22-2020 Lipid panel [facility] [employer] Start: 07-22-2020 Lipid screen Lipid screen [facility] [employer] Phone: Start: 07-05-2020 End: 07-05-2020 Office Visit 07/05/2020 Office Visit Family Medicine Skye Jones OAKES MACHINE OPERATOR - [employer] [address] [place] [address] [phone] [facility] Start: 06-05-2020 End: 06-05-2020 Virtual Visit 06/05/2020 Virtual Visit Family Medicine Skye Jones OAKES MACHINE OPERATOR - [employer] [address] [place] [address] [phone] [facility] Start: 06-04-2020 End: 06-04-2020 Virtual Visit 06/04/2020 Virtual Visit Family Medicine Skye Jones OAKES MACHINE OPERATOR - [employer] [address] [place] [address] [phone] [facility] Start: 05-30-2020 End: 05-30-2020 Virtual Visit 05/30/2020 Virtual Visit Endocrinology Gabriele Gabriel, MONIKA [address] [address] [place] [address] [phone] [facility] Start: 2020 Colonoscopy COLORECTAL CANCER SCREENING DISCUSSION [facility] Start: 2020 Screening for malignant neoplasm of colon [facility] Start: 05-04-2020 HbA1c (Bld) [Mass fraction] A1C test (Diabetic or Prediabetic) [place] Start: 04-05-2020 End: 04-05-2020 Office Visit 04/05/2020 Office Visit Family Skye Parisi OAKES MACHINE OPERATOR - [employer] [address] [place] [address] [phone] [facility] Start: 04-04-2020 [object Object] Diabetic foot exam [place] Start: 04-04-2020 Diabetic foot examination Diabetic foot exam [facility] Start: 03-29-2020 End: 03-29-2020 Office Visit 03/29/2020 Office Visit [place] [address] [place] [address] [phone] [facility] Start: 03-15-2020 End: 03-15-2020 Office Visit 03/15/2020 Office Visit kSye Lenz OAKES MACHINE OPERATOR - [employer] [address] [place] [address] [phone] [facility] Start: 02-28-2020 Influenza vaccination [place] Start: 02-28-2020 Influenza vaccination given Sequential Influenza Vaccine (#1) [facility] Start: 02-08-2020 HbA1c (Bld) [Mass fraction] A1C test (Diabetic or Prediabetic) [place] Start: 02-02-2020 End: 02-02-2020 Office Visit 02/02/2020 Office Visit Skye Lenz OAKES MACHINE OPERATOR - [employer] [address] [place] [address] [phone] [facility] Start: 10-21-2019 A1C test (Diabetic or Prediabetic) A1C test (Diabetic or Prediabetic) [facility] [employer] Work Phone: Start: 10-21-2019 HbA1c (Bld) [Mass fraction] A1C test (Diabetic or Prediabetic) [place] Start: 08-24-2019 End: 08-24-2019 Appointment 08/24/2019 Appointment Occupational Therapy Linda Calle, OTR/L [place] [facility] Start: 08-22-2019 End: 08-22-2019 Appointment 08/22/2019 Appointment Occupational Therapy Linda Calle OTR/L [place] [facility] Start: 08-17-2019 End: 08-17-2019 Appointment 08/17/2019 Appointment Occupational Therapy Linda Calle OTR/[place] [facility] Start: 08-10-2019 End: 08-10-2019 Appointment 08/10/2019 Appointment Occupational Therapy Linda Calle OTR/L [place] [facility] Start: 07-18-2019 A1C test (Diabetic or Prediabetic) A1C test (Diabetic or Prediabetic) [place] Start: 07-14-2019 End: 07-14-2019 Patient encounter procedure 07/14/2019 Office Visit Family Medicine Lauren Gudino, OAKES MACHINE OPERATOR - [employer] HAND [address] [place] [address] [phone] [facility] Start: 05-04-2019 A1C test (Diabetic or Prediabetic) A1C test (Diabetic or Prediabetic) [place] Start: 04-28-2019 End: 04-28-2019 Office Visit 04/28/2019 Office Visit Family Skye Parisi OAKES MACHINE OPERATOR - [employer] HAND [address] [place] [address] [phone] [facility] Start: 04-26-2019 End: 04-26-2019 Office Visit 04/26/2019 Office Visit Family Skye Parisi OAKES MACHINE OPERATOR - [employer] [address] [place] [address] [phone] [facility] Start: 04-12-2019 End: 04-12-2019 Office Visit 04/12/2019 Office Visit Family Medicine Skye Jones OAKES MACHINE OPERATOR - [employer] HAND [address] [place] [address] [phone] [facility] Start: 03-08-2019 End: 03-08-2019 Office Visit 03/08/2019 Office Visit Endocrinology Gabriele Gabriel, PA [address] [place] [address] [phone] [facility] Start: 03-06-2019 Diabetic microalbuminuria test Diabetic microalbuminuria test [place] Start: 03-06-2019 Lipid screen Lipid screen [place] Start: 03-06-2019 Urine screening for protein Diabetic microalbuminuria test [facility] Start: 02-27-2019 Influenza vaccination Flu vaccine (#1) [place] Start: 02-15-2019 End: 02-15-2019 Office Visit 02/15/2019 Office Visit Family Skye Parisi OAKES MACHINE OPERATOR - [employer]E HAND [address] [place] [address] [phone] [facility] Start: 02-08-2019 End: 02-08-2019 Office Visit 02/08/2019 Office Visit Family Skye Parisi OAKES MACHINE OPERATOR - [employer] [address] [place] [address] [phone] [facility] Start: 02-07-2019 End: 02-07-2019 Appointment 02/07/2019 Appointment Radiology Ally Fraga CT Scan Start: 09-22-2016 Hemoglobin A1c/Hemoglobin.total in Blood HBA1C [facility] Start: 12-12-2015 [object Object] Diabetic foot exam [place] Start: 2015 Fasting lipid profile LIPID SCREENING [employer] Start: 2015 Mammography MAMMOGRAM [facility] Start: 2015 Screening for malignant neoplasm of breast Mammogram [facility] Start: 2015 Screening mammography MAMMOGRAM SCREENING DISCUSSION [facility] Start: 04-04-2015 Diabetic retinal exam Diabetic retinal exam [place], [place] Start: 12-08-2014 Cervical cancer screen Cervical cancer screen [place] Start: 12-08-2014 Screening for malignant neoplasm of cervix Cervical cancer screen [place] Start: 07-21-2014 Screening for malignant neoplasm of colon [facility] Start: 01-18-2014 Hepatitis B surface antibody level LDL CHOLESTEROL [facility] Start: 11-24-2012 Hepatitis C antibody, confirmatory test DILATED RETINAL EXAM [facility] Start: 2005 HPV TESTING HPV TESTING [facility] Start: 1996 PAP TESTING PAP TESTING [facility] Start: 1996 Screening for malignant neoplasm of cervix CERVICAL CANCER SCREENING DISCUSSION [facility] Start: 1994 DTaP/Tdap/Td vaccine (1 - Tdap) DTaP/Tdap/Td vaccine (1 - Tdap) [facility] Start: 1994 Hepatitis B Vaccine (1 of 3 - Risk 3-dose series) Hepatitis B Vaccine (1 of 3 - Risk 3-dose series) [facility] Start: 1994 Third diphtheria, tetanus and acellular pertussis (DTaP) vaccination TDAP (ADULT) [facility] Start: 1994 Urine microalbumin profile DTAP,TDAP,TD (1 - Tdap) [facility] Start: 1993 Hepatitis C antibody, confirmatory test Hepatitis C Screening [facility] Start: 1993 Hepatitis C screening [facility] Start: 1993 HEPATITIS C SCREENING HEPATITIS C SCREENING [facility] Start: 1993 HIV SCREENING HIV SCREENING [facility] Start: 1993 Tetanus vaccination TETANUS [facility] Start: 1991 COVID-19 Vaccine (1 of 2) COVID-19 Vaccine (1 of 2) [facility] Start: 1991 COVID-19 VACCINE (1) COVID-19 VACCINE (1) [facility] Start: 1991 ONE PNEUMOVAX PRIOR TO AGE 65 ONE PNEUMOVAX PRIOR TO AGE 65 [facility] Start: 1990 HIV screen HIV screen [place] Start: 1990 HIV screening [facility] Start: 1988 HIV screening [facility] [place] Start: 1987 Adolescent depression screening assessment [facility] Start: 1987 COVID-19 VACCINE (1) COVID-19 VACCINE (1) [facility] Start: 1986 DTaP/Tdap/Td vaccine (1 - Tdap) DTaP/Tdap/Td vaccine (1 - Tdap) [facility] [employer] Phone: Start: 1985 3 comp foot exam completed DIABETIC FOOT EXAM [facility] Start: 1985 Diabetic foot examination Foot Exam [facility] Start: 1985 Hepatitis B screening URINE ALBUMIN:CREATININE RATIO [facility] Start: 1985 Microalbumin measurement, urine, quantitative Urine Microalbumin [facility] Start: 1985 Ophthalmic examination and evaluation Ophthalmology Exam [facility] Start: 1981 Pneumococcal 0-64 years Vaccine (1 - PCV) Pneumococcal 0-64 years Vaccine (1 - PCV) [facility] Start: 1981 Pneumococcal 0-64 years Vaccine (1 of 1 - PPSV23) Pneumococcal 0-64 years Vaccine (1 of 1 - PPSV23) [place] Start: 1981 Pneumococcal 0-64 years Vaccine (1 of 2 - PPSV23) Pneumococcal 0-64 years Vaccine (1 of 2 - PPSV23) [facility] [employer] Phone: Start: 1981 Pneumococcal Vaccine: Ped or At-Risk (1 of 2 - PPSV23) Pneumococcal Vaccine: Ped or At-Risk (1 of 2 - PPSV23) [facility] Start: 1980 COVID-19 VACCINE (1) COVID-19 VACCINE (1) [employer] Start: 1978 History and physical examination, annual for health maintenance Wellness Visit [facility] Start: 1975 COVID-19 Vaccine (#1) COVID-19 Vaccine (#1) [facility] [employer] [employer] Start: 1975 Hepatitis B vaccine (1 of 3 - 3-dose series) Hepatitis B vaccine (1 of 3 - 3-dose series) [facility] [employer] [facility] [employer] Start: 1975 Hepatitis C antibody, confirmatory test HEPATITIS C VIRUS SCREENING [facility] Start: 1975 Hepatitis C screening [facility] Screening for malignant neoplasm of cervix Pap Smear [facility] Start: 1975 Screening for malignant neoplasm of colon [facility] Start: 1975 Screening mammography Mammogram [facility] Start: 1975 Tetanus vaccination Tetanus: Every 10yrs [facility] End: 07-08-2020 Bacteria identified Aer cx Nom (Unsp spec) Urine Aerobic Culture Microbiology Routine Once for 1 Occurrences starting 07/08/2020 until 07/08/2020 [facility] Comment on above: Once for 1 Occurrences starting 07/08/19 21 until 07/08/2020 Bacteria identified Aer cx Nom (Unsp spec) [facility] End: 08-14-2020 Bacteria identified Aer cx Nom (Unsp spec) Urine Aerobic Culture Microbiology Routine Once for 1 Occurrences starting 08/14/2020 until 08/14/2020 [facility] Comment on above: Once for 1 Occurrences starting 08/14/19 21 until 08/14/2020 End: 07-16-2020 Bacteria identified Aer cx Nom (Unsp spec) Urine Aerobic Culture Microbiology Routine Once for 1 Occurrences starting 07/16/2020 until 07/16/2020 [facility] Comment on above: Once for 1 Occurrences starting 07/16/19 21 until 07/16/2020 End: 02-28-2019 Bacteria identified Cx Nom (U) Urine Culture Microbiology STAT One Time for 1 Occurrences starting 02/28/2019 until 02/28/2019 [facility] above: One Time for 1 Occurrences starting 07/2018 until 02/28/2019 Bacteria identified Cx Nom (U) [facility] End: 04-05-2019 Bacteria identified Cx Nom (U) Urine Culture Microbiology STAT Once for 1 Occurrences starting 04/05/2019 until 04/05/2019 [facility] Comment on above: Once for 1 Occurrences starting 04/05/20 19 until 04/05/2019 Bacteria identified in Blood by Culture [facility] Work Phone: Bacteria identified in Blood by Culture [facility] Bacteria identified in Blood by Culture [facility] Bacteria identified in Unspecified specimen by Aerobe culture Urine Aerobic Culture Microbiology Routine 12/05/2021 10:00 AM EDT [employer] Phone: End: 07-09-2019 Bacteria identified in Urine by Culture Urine Culture Microbiology STAT One Time for 1 Occurrences starting 07/09/2019 until 07/09/2019 [employer] Phone: Comment on above: One Time for 1 Occurrences starting 06/29 until 07/09/2019 End: 07-14-2019 Bacteria identified in Urine by Culture Urine Culture Microbiology STAT Once for 1 Occurrences starting 07/14/2019 until 07/14/2019 [employer] Phone: Comment on above: Once for 1 Occurrences starting 07/14/19 until 07/14/2019 Bacteria identified in Urine by Culture [facility] Bacteria identified in Urine by Culture [facility] End: 03-20-2020 Basic metabolic 2000 panel Basic Metabolic Panel Lab STAT One Time for 1 Occurrences starting 03/20/2020 until 03/20/2020 [facility] [place] Comment on above: One Time for 1 Occurrences starting 02/28 until 03/20/2020 End: 07-11-2019 Basic metabolic 2000 panel - Serum or Plasma Basic Metabolic Panel Lab STAT One Time for 1 Occurrences starting 07/11/2019 until 07/11/2019 [employer] Phone: Comment on above: One Time for 1 Occurrences starting 06/29 until 07/11/2019 Bilirubin measuremen t, urine [facility] End: 08-18-2019 CBC Auto Differential CBC Auto Differential Lab STAT One Time for 1 Occurrences starting 08/18/2019 until 08/18/2019 [facility] [place] Comment on above: One Time for 1 Occurrences starting 07/31 until 08/18/2019 End: 03-20-2020 CBC Auto Differential CBC Auto Differential Lab STAT One Time for 1 Occurrences starting 03/20/2020 until 03/20/2020 [facility] [place] Comment on above: One Time for 1 Occurrences starting 02/28 until 03/20/2020 End: 04-29-2020 CBC Auto Differential CBC Auto Differential Lab STAT Once for 1 Occurrences starting 04/29/2020 until 04/29/2020 [facility] Comment on above: Once for 1 Occurrences starting 04/29/20 until 04/29/2020 CBC Auto Differential [facility] Comment on above: Daily until discontinued starting 2019, 13 completed Daily until disconti nued starting 05/28/2020, 1 completed End: 09-26-2020 CBC Auto Differential CBC Auto Differential Lab STAT One Time for 1 Occurrences starting 09/26/2020 until 09/26/2020 [employer] Phone: Comment on above: One Time for 1 Occurrences starting 08/29 until 09/26/2020 End: 07-11-2019 CBC W Auto Differential panel - Blood CBC Auto Differential Lab STAT One Time for 1 Occurrences starting 07/11/2019 until 07/11/2019 [employer] Phone: Comment on above: One Time for 1 Occurrences starting 06/29 until 07/11/2019 End: 07-03-2023 CBC W Auto Differential panel - Blood CBC with Auto Differential Lab Routine Daily for 3 Days starting 07/01/2023 until 07/03/2023, 1 completed [employer] Comment on above: Daily for 3 Days starting 07/01/2023 unt il 07/03/2023, 1 completed Choriogonadotropin ( test) [Presence] in Urine [facility] Color of Urine [facility] End: 08-18-2019 Comprehensive metabolic 2000 panel Comprehensive Metabolic Panel Lab STAT One Time for 1 Occurrences starting 08/18/2019 until 08/18/2019 [facility] [employer] Comment on above: One Time for 1 Occurrences starting 07/31 until 08/18/2019 End: 08-13-2022 Comprehensive metabolic 2000 panel - Serum or Plasma [employer] Work Phone: Comment on above: One Time for 1 Occurrences starting 07/30 until 08/13/2022 End: 07-03-2023 Comprehensive metabolic 2000 panel - Serum or Plasma Comprehensive Metabolic Panel Lab Routine Daily for 3 Days starting 07/01/2023 until 07/03/2023, 1 completed [employer] Comment on above: Daily for 3 Days starting 07/01/2023 unt il 07/03/2023, 1 completed Comprehensive Metabo lic Panel w/ Reflex to MG Comprehensive Metabolic Panel w/ Reflex to MG Lab Routine Daily until discontinued starting 05/28/2020, 1 completed [employer] Comment on above: Daily until discontinued starting 2019, 1 completed Continuous pulse oximetry Pulse oximetry, continuous Respiratory Care Routine Every 4hr until discontinued starting 05/16/2020 [facility] [place] Comment on above: Every 4hr until discontinued starting End: 01-13-2020 CT ABDOMEN PELVIS W IV CONTRAST Additional Contrast? None CT ABDOMEN PELVIS W IV CONTRAST Additional Contrast? None Imaging STAT Once for 1 Occurrences starting 01/13/2020 until 01/13/2020 [employer] [place] Comment on above: Once for 1 Occurrences starting 01/13/20 until 01/13/2020 CT ABDOMEN PELVIS W IV CONTRAST Additional Contrast? None [employer] [place] End: 09-26-2020 CT ABDOMEN PELVIS W IV CONTRAST Additional Contrast? None CT ABDOMEN PELVIS W IV CONTRAST Additional Contrast? None Imaging Routine Once for 1 Occurrences starting 09/26/2020 until 09/26/2020 [employer] Phone: Comment on above: Once for 1 Occurrences starting 09/27/19 until 09/26/2020 End: 04-29-2020 CT ABDOMEN PELVIS WO CONTRAST Additional Contrast? None CT ABDOMEN PELVIS WO CONTRAST Additional Contrast? None Imaging STAT Once for 1 Occurrences starting 04/29/2020 until 04/29/2020 [employer] Comment on above: Once for 1 Occurrences starting 04/29/20 until 04/29/2020 CT ABDOMEN PELVIS WO CONTRAST Additional Contrast? None [employer] End: 02-16-2020 CT ABDOMEN PELVIS WO CONTRAST Additional Contrast? None CT ABDOMEN PELVIS WO CONTRAST Additional Contrast? None Imaging STAT Once for 1 Occurrences starting 02/16/2020 until 02/16/2020 [employer] Comment on above: Once for 1 Occurrences starting 02/16/20 until 02/16/2020 End: 10-01-2020 CT ABDOMEN PELVIS WO CONTRAST Additional Contrast? None CT ABDOMEN PELVIS WO CONTRAST Additional Contrast? None Imaging Routine Once for 1 Occurrences starting 10/01/2020 until 10/01/2020 [employer] Phone: Comment on above: Once for 1 Occurrences starting 10/02/19 21 until 10/01/2020 End: 08-13-2022 CT ABDOMEN PELVIS WO CONTRAST Additional Contrast? None [employer] Phone: Comment on above: Once for 1 Occurrences starting 08/13/19 23 until 08/13/2022 End: 07-01-2020 CT KIDNEY WO CONTRAST CT KIDNEY WO CONTRAST Imaging Routine Once for 1 Occurrences starting 07/01/2020 until 07/01/2020 [place] Comment on above: Once for 1 Occurrences starting 07/01/19 21 until 07/01/2020 CT KIDNEY WO CONTRAST CT KIDNEY WO CONTRAST Imaging STAT 07/01/2020 11:12 PM EST [place] Culture Blood #1 Culture Blood # 1 Microbiology STAT 04/18/2019 12:02 AM EDT [employer] [place] End: 07-11-2019 Culture Blood #1 Culture Blood #1 Microbiology STAT One Time for 1 Occurrences starting 07/11/2019 until 07/11/2019 [employer] Phone: Comment on above: One Time for 1 Occurrences starting 06/29 until 07/11/2019 End: 07-11-2019 Culture Blood #2 Culture Blood #2 Microbiology STAT One Time for 1 Occurrences starting 07/11/2019 until 07/11/2019 [employer] Phone: Comment on above: One Time for 1 Occurrences starting 06/29 until 07/11/2019 End: 05-27-2020 Culture, Blood 1 Culture, Blood 1 Microbiology STAT One Time for 1 Occurrences starting 05/27/2020 until 05/27/2020 [place] Comment on above: One Time for 1 Occurrences starting 04/30 until 05/27/2020 Culture, Blood 1 Culture, Blood 1 Microbiology STAT 05/27/2020 10:15 PM EST [employer] [place] End: 05-27-2020 Culture, Blood 2 Culture, Blood 2 Microbiology STAT One Time for 1 Occurrences starting 05/27/2020 until 05/27/2020 [employer] [place] Comment on above: One Time for 1 Occurrences starting 04/30 until 05/27/2020 Culture, Blood 2 [facility] [place], [facility] End: 08-18-2019 Culture, Urine Culture, Urine Microbiology STAT Once for 1 Occurrences starting 08/18/2019 until 08/18/2019 [facility] [place] Comment on above: Once for 1 Occurrences starting 08/18/19 until 08/18/2019 End: 10-20-2019 Culture, Urine Culture, Urine Microbiology STAT Once for 1 Occurrences starting 10/20/2019 until 10/20/2019 [place] Comment on above: Once for 1 Occurrences starting 10/20/19 until 10/20/2019 End: 01-08-2020 Culture, Urine Culture, Urine Microbiology STAT Once for 1 Occurrences starting 01/08/2020 until 01/08/2020 [place] Comment on above: Once for 1 Occurrences starting 01/08/20 until 01/08/2020 End: 01-13-2020 Culture, Urine Culture, Urine Microbiology STAT Once for 1 Occurrences starting 01/13/2020 until 01/13/2020 [place] Comment on above: Once for 1 Occurrences starting 01/13/20 until 01/13/2020 End: 04-30-2020 Culture, Urine Culture, Urine Microbiology STAT Once for 1 Occurrences starting 04/30/2020 until 04/30/2020 [place] Comment on above: Once for 1 Occurrences starting 04/30/20 until 04/30/2020 End: 05-27-2020 Culture, Urine Culture, Urine Microbiology STAT Once for 1 Occurrences starting 05/27/2020 until 05/27/2020 [place] Comment on above: Once for 1 Occurrences starting 05/27/20 until 05/27/2020 End: 07-01-2020 Culture, Urine Culture, Urine Microbiology STAT Once for 1 Occurrences starting 07/01/2020 until 07/01/2020 [place] Comment on above: Once for 1 Occurrences starting 07/01/19 until 07/01/2020 End: 02-16-2020 Culture, Urine Culture, Urine Microbiology STAT Once for 1 Occurrences starting 02/16/2020 until 02/16/2020 [facility] [place] Comment on above: Once for 1 Occurrences starting 02/16/20 until 02/16/2020 End: 09-26-2020 Culture, Urine Culture, Urine Microbiology STAT Once for 1 Occurrences starting 09/26/2020 until 09/26/2020 [employer] Phone: Comment on above: Once for 1 Occurrences starting 09/27/19 21 until 09/26/2020 End: 09-17-2022 Culture, Urine Culture, Urine Microbiology STAT Once for 1 Occurrences starting 09/17/2022 until 09/17/2022 [employer] Work Phone: Comment on above: Once for 1 Occurrences starting 09/18/19 23 until 09/17/2022 Culture, Urine Culture, Urine Microbiology STAT 09/17/2022 1:30 AM EDT [employer] Phone: [employer], [employer], [place] Comment on above: Daily until discontinued starting 2019, 11 completed Daily until disconti nued starting 05/28/2020, 1 completed Detection of hemoglobin [facility] EKG 12 Lead [employer] Work Phone: Ferritin [Mass/Vol] Ferritin Lab Routine Daily until discontinued starting 05/08/2020, 11 completed [employer], [place] Comment on above: Daily until discontinued starting 2019, 11 completed Fibrinogen Fibrinogen Lab R outine Daily until discontinued starting 05/28/2020, 1 completed [employer], [employer] Comment on above: Daily until discontinued starting 2019, 1 completed End: 09-17-2022 Glucose [Mass/volume] in Serum or Plasma POCT Glucose Point of Care Testing STAT One Time for 1 Occurrences starting 09/17/2022 until 09/17/2022 [employer] Work Phone: Comment on above: One Time for 1 Occurrences starting 08/28 until 09/17/2022 End: 06-30-2023 Glucose [Mass/volume] in Serum or Plasma [employer] Comment on above: One Time for 1 Occurrences starting 07/2023 until 06/30/2023 4X Daily (AC & HS) u ntil discontinued starting 06/30/2023 As Needed until disc ontinued starting 06/30/2023 Glucose [Mass/volume ] in Serum or Plasma POCT Glucose Point of Care Testing STAT As Needed until discontinued starting 07/08/2023 [employer] Phone: Comment on above: As Needed until discontinued starting Glucose [Mass/volume ] in Serum or Plasma POCT Glucose Point of Care Testing Routine 4X Daily (AC & HS) until discontinued starting 07/08/2023 [employer] Comment on above: 4X Daily (AC & HS) until discontinued st arting 07/08/2023 Glucose [Mass/volume ] in Urine by Test strip [facility] H/O: hysterectomy History of hysterectomy [facility] High sensitivity CRP High sensit ivity CRP Lab Routine Daily until discontinued starting 05/08/2020, 11 completed [employer] Comment on above: Daily until discontinued starting 2019, 11 completed History of cholecystectomy Histo ry of cholecystectomy [facility] History of hernia repair History of herni a repair [facility] Initiate Oxygen Ther apy Protocol Initiate Oxygen Therapy Protocol Respiratory Care Routine Daily until discontinued starting 04/18/2019 [employer] Comment on above: Daily until discontinued starting 2018 End: 05-28-2020 Intermittent pulse oximetry Pulse Oximetry Spot Check Respiratory Care Routine One Time for 1 Occurrences starting 05/28/2020 until 05/28/2020 [employer] Comment on above: One Time for 1 Occurrences starting 05/01 until 05/28/2020 End: 01-14-2020 Lactate, Sepsis Lactate, Sepsis Lab Timed Now Then Every 2hr for 2 Occurrences starting 01/13/2020 until 01/14/2020, 1 completed [employer] Comment on above: Now Then Every 2hr for 2 [address] sta rting 01/13/2020 until 01/14/2020, 1 completed End: 07-11-2019 Lactic Acid, Plasma Lactic Acid, Plasma Lab STAT One Time for 1 Occurrences starting 07/11/2019 until 07/11/2019 [employer] Phone: Comment on above: One Time for 1 Occurrences starting 06/29 until 07/11/2019 End: 08-24-2022 Lipase [Enzymatic activity/volume] in Serum or Plasma Lipase Lab STAT One Time for 1 Occurrences starting 08/24/2022 until 08/24/2022 [employer] Work Phone: Comment on above: One Time for 1 Occurrences starting 07/31 until 08/24/2022 Magnesium [Mass/Vol] Magnesium L ab Routine Daily until discontinued starting 05/08/2020, 11 completed [employer] Comment on above: Daily until discontinued starting 2019, 11 completed End: 07-03-2023 Magnesium [Mass/volume] in Serum or Plasma Magnesium Lab Routine Daily for 3 Days starting 07/01/2023 until 07/03/2023, 1 completed [employer] Comment on above: Daily for 3 Days starting 07/01/2023 unt il 07/03/2023, 1 completed MDI Treatment MDI Treatment Respiratory Care Routine Every 4hr until discontinued starting 05/28/2020 [employer] Comment on above: Every 4hr until discontinued starting Measurement of keton es in urine using dipstick [facility] End: 07-09-2019 Microscopic urinalysis Microscopic Urinalysis Lab STAT Once for 1 Occurrences starting 07/09/2019 until 07/09/2019 [employer] Work Phone: Comment on above: Once for 1 Occurrences starting 07/09/19 20 until 07/09/2019 Microscopic urinalysis Microscop ic Urinalysis Lab STAT 07/09/2019 7:15 PM EST [employer] Work Phone: Oxygen therapy [Mini mum Data Set] [employer] Comment on above: Daily until discontinued starting 2019 Daily until disconti nued starting 05/28/2020 Oxygen therapy [Mini mum Data Set] Initiate Oxygen Therapy Protocol Respiratory Care Routine As Needed until discontinued starting 06/30/2023 [employer] Comment on above: As Needed until discontinued starting Patient Education [facility] Work Phone: Patient referral [facility] Work Phone: POCT glucose [employer] [place] Comment on above: 4X Daily (AC & HS) [facility] As Needed until disc ontinued starting 05/06/2020 4X Daily (AC & HS) u ntil discontinued starting 05/07/2020 As Needed until disc ontinued starting 05/28/2020 4X Daily (AC & HS) u ntil discontinued starting 05/28/2020 4X Daily (AC & HS) u ntil discontinued starting 04/18/2019 As Needed until disc ontinued starting 04/18/2019 Protein measurement, urine F [facility] Protime-INR, Post Transfusion Protime-INR, Post Transfusion Lab Routine Post Transfusion Post Transfusion Post Transfustion for 1 Occurrences starting 05/07/2020 [facility] [employer] Comment on above: Post Transfusion Post Transfusion Post T ransfustion for 1 Occurrences starting 05/07/2020 RENAL FUNCTION PANEL RENAL FUNCT ION PANEL Lab Routine Daily until discontinued starting 05/13/2020, 6 completed [employer] [place] Comment on above: Daily until discontinued starting 2019, 6 completed Spirometry panel Incentive lupillo metry RT Respiratory Care Routine Every 2hr while awake until discontinued starting 05/05/2020 [facility] [employer] Comment on above: Every 2hr while awake until discontinued starting 05/05/2020 Spirometry panel Incentive lupillo metry Respiratory Care Routine Every 2hr while awake until discontinued starting 06/30/2023 [facility] [employer] Comment on above: Every 2hr while awake until discontinued starting 06/30/2023 [employer]use COVID-19 Convalescent Plasma Transfuse COVID-19 Convalescent Plasma Nursing Transfusion Routine 05/08/2020 4:01 PM EST [facility] Urinalysis, specific gravity measurement [facility] Urine dipstick for nitrite F [facility] Urine dipstick for specific gravity [facility] Urine pH test [facility] End: 11-25-2020 Urine Reflex to Culture Urine Reflex to Culture Lab STAT One Time for 1 Occurrences starting 11/25/2020 until 11/25/2020 [employer] Work Phone: Comment on above: One Time for 1 Occurrences starting 10/29 until 11/25/2020 End: 07-11-2019 Urine Reflex to Culture Urine Reflex to Culture Lab STAT One Time for 1 Occurrences starting 07/11/2019 until 07/11/2019 [employer] Phone: Comment on above: One Time for 1 Occurrences starting 06/29 until 07/11/2019 Urobilinogen concentration, test strip measurement [facility] End: 01-08-2020 XR ABDOMEN (KUB) (SINGLE AP VIEW) XR ABDOMEN (KUB) (SINGLE AP VIEW) Imaging STAT Once for 1 Occurrences starting 01/08/2020 until 01/08/2020 [place] Comment on above: Once for 1 Occurrences starting 01/08/20 20 until 01/08/2020 XR ABDOMEN (KUB) (SI NGLE AP VIEW) [place] End: 02-19-2020 XR ABDOMEN (KUB) (SINGLE AP VIEW) XR ABDOMEN (KUB) (SINGLE AP VIEW) Imaging STAT Once for 1 Occurrences starting 02/19/2020 until 02/19/2020 [place] Comment on above: Once for 1 Occurrences starting 02/19/20 until 02/19/2020 End: 11-25-2020 XR ABDOMEN (KUB) (SINGLE AP VIEW) XR ABDOMEN (KUB) (SINGLE AP VIEW) Imaging STAT Once for 1 Occurrences starting 11/25/2020 until 11/25/2020 [employer] Phone: Comment on above: Once for 1 Occurrences starting 11/26/19 until 11/25/2020 End: 04-15-2021 XR ABDOMEN (KUB) (SINGLE AP VIEW) XR ABDOMEN (KUB) (SINGLE AP VIEW) Imaging Routine Once for 1 Occurrences starting 04/15/2021 until 04/15/2021 [employer] Phone: Comment on above: Once for 1 Occurrences starting 04/15/20 until 04/15/2021 End: 05-25-2020 XR CHEST PORTABLE XR CHEST PORTABLE Imaging STAT Once for 1 Occurrences starting 05/25/2020 until 05/25/2020 [place] Comment on above: Once for 1 Occurrences starting 05/25/20 20 until 05/25/2020 XR CHEST PORTABLE XR CHEST GAL BLE Imaging STAT 05/25/2020 5:28 PM EST [facility] Immunizations Immunization Date Immunization Notes Care Provider Fa allenty 12-01-2022 Pneumococcal, PCV20, PREVNAR 20, (age 6w+), IM, 0.5mL Ruben Abdi MD Work Phone: [facility] 12-01-2022 tetanus toxoid, redu elida diphtheria toxoid, and acellular pertussis vaccine, adsorbed Ruben Abdi MD Work Phone: [facility] 04-23-2018 influenza virus vaccine, unspecified formulation Skye Jones [facility] [place] 04-23-2018 influenza, injectabl e, quadrivalent, preservative free Linda Calle [facility] Payers Date Payer Category Payer Self-pay [id number] 2020 Medicaid [facility] [id number] 2020-Present [phone] [address] [place] [address] [id number] 2020 Medicaid [id number] 2019 Unknown [employer] M EDICAL MUTUAL [address] [id number] 2019-Present [phone] [address] [place] [address] [id number] 2019 Unknown [id number] 2019 Unknown COMPMANAGEMENT COMPMANAGEMENT (MCO) xxxxxxxx 2019-Present [phone] [address] [place] [address] xxxxxxxx [id number] 2019 Unknown COMPMANAGEMENT COMPMANAGEMENT (MCO) xxxxxxxxx 2019-Present [phone] [address] [place] [address] xxxxxxxxx [id number] 2018 Unknown [employer] M [employer]ICAL MUTUAL [address] xxxxxxxxxxxx 2018-Present [phone] [address] [place] [address] xxxxxxxxxxxx [id number] 2011 Medicaid [id number] 2011 Unknown VISION SELF PAY SELF PAY VISION [id number] 2011-2015 VISION Indemnity [id number] 1975 Unknown [id number] 1975 Unknown [id number] 1975 Unknown [id number] .355 1975 Unknown [id number] .651 1975 Unknown [id number] 1975 Unknown [id number] .903 1975 Unknown [id number] .419 1975 Unknown [id number] .419 1975 Unknown [id number] 2.16.840.1.699700.3.579.2 .419 1975 Unknown [id number] 2.16.840.1.381297.3.579.2 .419 1975 Unknown [id number] 2.16.840.1.472514.3.579.2 .419 1975 Unknown [id number] 2.16.840.1.542254.3.579.2 .593 1975 Unknown [id number] 2.16.840.1.979747.3.579.2 .902 1975 Unknown [id number] 2.16.840.1.315395.3.579.2 .902 1975 Unknown [id number] 2.16.840.1.648592.3.579.2 .902 1975 Unknown [id number] 2.16.840.1.892289.3.579.2 .902 1975 Unknown [id number] 2.16.840.1.101795.3.579.2 .903 1975 Unknown [id number] 2.16.840.1.499824.3.579.2 .903 1975 Unknown [id number] 2.16.840.1.399986.3.579.2 .903 1975 Unknown [id number] 2.16.840.1.147207.3.579.2 .903 1975 Unknown [id number] 2.16.840.1.874647.3.579.2 .903 1975 Unknown [id number] 2.16.840.1.416813.3.579.2 .903 1975 Unknown [id number] 2.16.840.1.574557.3.579.2 .903 1975 Unknown [id number] 2.16.840.1.735375.3.579.2 .356 1975 Unknown [id number] 2.16.840.1.709398.3.579.2 .1068 1975 Unknown [id number] 2.16.840.1.245616.3.579.2 .1068 1975 Unknown [id number] 2.16.840.1.143420.3.579.2 .900 1975 Unknown [id number] 2.16.840.1.244160.3.579.2 .173 1975 Unknown [id number] 2.16.840.1.701785.3.579.2 .173 1975 Unknown [id number] 2.16.840.1.776615.3.579.2 .727 1975 Unknown [id number] 2.16.840.1.578919.3.579.2 .727 1975 Unknown [id number] 2.16.840.1.434016.3.579.2 .727 1975 Unknown [id number] 2.16.840.1.545889.3.579.2 .727 1975 Unknown [id number] 2.16.840.1.580129.3.579.2 .727 1975 Unknown [id number] 2.16.840.1.608925.3.579.2 .727 1975 Unknown [id number] 2.16.840.1.300959.3.579.2 .727 1975 Unknown [id number] 2.16.840.1.572537.3.579.2 .727 1975 Unknown [id number] 2.16.840.1.069514.3.579.2 .727 1975 Unknown [id number] 2.16.840.1.758830.3.579.2 .727 1975 Unknown [id number] 2.16.840.1.334346.3.579.2 .727 1975 Unknown [id number] 2.16.840.1.089476.3.579.2 .727 1975 Unknown [id number] 2.16.840.1.588195.3.579.2 .727 1975 Unknown [id number] 2.16.840.1.210955.3.579.2 .182 1975 Unknown [id number] 2.16.840.1.270647.3.579.2 .182 1975 Unknown [id number] 2.16.840.1.787683.3.579.2 .182 1975 Unknown [id number] 2.16840.1.878253.3.579.2 .182 1975 Unknown [id number] 2.16.840.1.839787.3.579.2 .182 1975 Unknown [id number] 2.16.840.1.185700.3.579.2 .182 1975 Unknown [id number] 2.16.840.1.080716.3.579.2 .182 1975 Unknown [id number] 2.16840.1.645854.3.579.2 .182 1975 Unknown [id number] 2.16.840.1.581211.3.579.2 .182 1975 Unknown [id number] 2.16.840.1.623106.3.579.2 .182 1975 Unknown [id number] 2.16.840.1.035813.3.579.2 .1286 1975 Unknown [id number] 2.16.840.1.100467.3.579.2 .1259 1975 Unknown [id number] 2.16.840.1.231154.3.579.2 .1259 1959 Unknown [id number] 1.2.840.367439.1.13.239.2 .7.3.998931.315 1959 Unknown [id number] Private Health Insurance [id number] Private Health Insurance [id number] Unknown [id number] Unknown Unknown [id number] Unknown [id number] 2.16.840.1.084385.3.579.2 .531 Unknown [id number] 2.16.840.1.673539.3.579.2 .531 Unknown [id number] 2.16.840.1.455467.3.579.2 .531 Unknown [id number] 2.16.840.1.453614.3.579.2 .531 Unknown [id number] 2.16.840.1.315767.3.579.2 .531 Unknown [id number] 2.16.840.1.327509.3.579.2 .531 Unknown [id number] 2.16.840.1.527353.3.579.2 .531 Unknown [id number] 2.16.840.1.255855.3.579.2 .531 Unknown [id number] 2.16.840.1.232044.3.579.2 .531 Unknown [id number] 2.16.840.1.229031.3.579.2 .531 Unknown [id number] 2.16.840.1.536373.3.579.2 .531 Unknown [id number] 2.16.840.1.044061.3.579.2 .531 Unknown [id number] 2.16.840.1.119999.3.579.2 .531 Unknown [id number] 2.16.840.1.211819.3.579.2 .531 Unknown [id number] 2.16.840.1.653325.3.579.2 .531 Unknown [id number] 2.16.840.1.057912.3.579.2 .531 Unknown [id number] 2.16.840.1.642580.3.579.2 .531 Unknown [id number] 2.16.840.1.846535.3.579.2 .531 Social History Date Type Detail Facility Start: 02-08-2019 End: 08-19-2023 Tobacco smoking status NHIS Never smoker [facility] [employer] Start: 02-08-2019 End: 07-08-2023 Alcohol intake No [place], [place] Start: 1975 Sex Assigned At Not on file M [place], [place] Start: 07-21-2019 End: 08-27-2022 Alcohol intake Current non-drinker of alcohol (finding) [employer] Phone: Start: 07-19-2019 End: 08-27-2022 History SDOH Financial 5 [employer] Phone: Start: 07-19-2019 End: 08-27-2022 History SDOH Food Worry 1 [employer] [facility]: Start: 07-19-2019 End: 08-27-2022 History SDOH Transport Med 2 [employer] Phone: Exposure to SARS-CoV-2 (event) Unable to assess [place], [place] Start: 01-08-2020 End: 01-28-2022 Tobacco use and exposure Never used [facility] [employer] Start: 11-23-2021 End: 09-17-2022 Exposure to SARS-CoV-2 (event) Not sure [place] Exposure to SARS-CoV-2 (event) Yes [place] Start: 07-08-2020 End: 07-01-2023 Alcohol intake Lifetime non-drinker (finding) [facility] Start: 09-20-2020 End: 06-25-2021 Alcohol intake Ex-drinker (finding) [facility] Tobacco smoking consumption unknown [facility] Start: 1975 Sex Assigned At Female Jered tolentino [employer] Start: 12-04-2021 End: 07-08-2023 Cigarette pack-years [employer] Start: 08-14-2022 History SDOH Alcohol Std Drinks 0 [employer] Work Phone: Tobacco [facility] Comment on above: denies. Tobacco smoking status No Smoking Status Entered [facility] How often to you hav e a drink containing alcohol? Never [employer] How many standard drinks containing alcohol do you have on a typical day? Patient does not drink [employer] (I/We) worried whether (my/our) food would run out before (I/we) got money to buy more. Never true [employer] At any time in the past 12 months, were you homeless or living in senior living [including now]? No [employer] Start: 07-18-2021 Gender identity Identifies as female gender (finding) [employer] Start: 07-18-2021 Sexual orientation Heterosexual (fin henok) [employer] NEGATED: Highlighted row - - XH-Xkxfqbdcvecanj-Zs anibal Work Phone: Medical Equipment Procedure Code Equipment Code Equipment Origin al Text Equipment Identifier Dates use daily as directed [id number] Sta rt: 01-07-2019 4 times daily fo r fluctuating glucose WHATEVER [employer] COVERS [id number] Start: 01-05-2018 1 each by Does n ot apply route 4 times daily Please provide lancets compatible with One Touch Verio [id number] Start: 01-06-2018 USE FOUR TIMES DAILY [id number] Star t: 04-20-2018 USE FOUR TIMES DAILY [id number] Star t: 04-26-2018 Test 4 times a d ay & as needed for symptoms of irregular blood glucose. [id number] Start: 04-05-2019 test 4 times silvina ly as directed [id number] Start: 04-08-2019 use daily as directed [id number] Sta rt: 03-06-2019 use daily as directed [id number] Sta rt: 06-02-2019 use 4 times leland y as directed with insulin injections [id number] Start: 02-03-2020 Test 4 times a d ay & as needed for symptoms of irregular blood glucose. [id number] Start: 04-01-2020 use 4 times leland y as directed with insulin injections [id number] Start: 05-27-2020 Test 4 times a d ay & as needed for symptoms of irregular blood glucose. [id number] Start: 06-07-2020 use 4 times leland y as directed with insulin injections [id number] Start: 06-13-2020 1 each by Does n ot apply route 4 times daily [id number] Start: 04-05-2019 Stent 6 X 28 Con tour W/O Wire - Sn/A ()[id number](1 [id number])N/A, [id number] FDA Start: 01-30-2021 1 strip by Other route 4 times daily (before meals and nightly) Pt test 4x daily Dx E11.65. May substitute for generic or insurance covered product [id number] Start: 06-19-2021 1 each by Does n ot apply route 4 times daily (before meals and nightly) [id number] Start: 06-19-2021 1 each by Does n ot apply route 4 times daily (before meals and nightly) Pt test 4x daily Dx E11.65. May substitute for generic or insurance covered product [id number] Start: 06-19-2021 USE 1 PEN NEEDLE 4 TIMES DAILY BEFORE MEAL(S) AND NIGHTLY [id number] Start: 10-25-2021 use 4 times leland y as directed with insulin injections [id number] Start: 05-22-2021 End: 12-04-2021 SHOULDER ARTHROS COPY W/ POSSIBLE REPAIR Roland FERNANDEZ Omi A 04/25/22 Unknown Shoulder R FDA Start: 04-25-2022 SHOULDER ARTHROS COPY W/ POSSIBLE REPAIR Roland FERNANDEZ Omi A 04/25/22 Unknown Shoulder R FDA Start: 04-25-2022 SHOULDER ARTHROS COPY W/ POSSIBLE REPAIR Brown DO Omi A 04/25/22 Unknown Shoulder R FDA Start: 04-25-2022 SHOULDER ARTHROS COPY W/ POSSIBLE REPAIR Roland FERNANDEZ Omi A 04/25/22 Unknown Shoulder R FDA [...] 4 times daily (before meals and nightly) [id number] Start: 03-04-2022 SHOULDER ARTHROS COPY W/ POSSIBLE [...] 4 times daily (before meals and nightly) [id number] Start: 09-08-2022 SHOULDER ARTHROS COPY W/ POSSIBLE REPAIR Brown [...] SHOULDER ARTHROS COPY W/ POSSIBLE REPAIR Roland FERNANDEZ Omi A 04/25/22 Unknown Shoulder R FDA Start: 04-25-2022 SHOULDER ARTHROS COPY W/ POSSIBLE REPAIR Brown DO, Omi A 04/25/22 Unknown Shoulder R FDA Start: 04-25-2022 SHOULDER ARTHROS COPY W/ POSSIBLE REPAIR Roland Omi A 04/25/22 Unknown Shoulder R FDA Start: 04-25-2022 SHOULDER ARTHROS COPY W/ POSSIBLE REPAIR Roland DO, Omi A 04/25/22 Unknown Shoulder R FDA Start: 04-25-2022 SHOULDER ARTHROS COPY W/ POSSIBLE REPAIR Roland FERNANDEZ Omi A 04/25/22 Unknown Shoulder R FDA [...] SHOULDER ARTHROS COPY W/ POSSIBLE REPAIR Brown , Omi A 04/25/22 Unknown Shoulder R FDA Start: 04-25-2022 SHOULDER ARTHROS COPY W/ POSSIBLE REPAIR Omi Watkins DO A 04/25/22 Unknown Shoulder R FDA Start: 04-25-2022 Screw Spnl L15mm Dia3.5mm Ant Cerv Ti Self Drl Aisha Ang - [id number] Start: 06-30-2023 1 each by Does n ot apply route 4 times daily (before meals and nightly) [id number] Start: 03-09-2023 SHOULDER ARTHROS COPY W/ POSSIBLE REPAIR Olamide Watkins DOson A 04/25/22 Unknown Shoulder R FDA Start: 04-25-2022 SHOULDER ARTHROS COPY W/ POSSIBLE REPAIR Olamide Watkins DOson A 04/25/22 Unknown Shoulder R FDA Start: [...] Assessment Result Facility 07-11-2023 Functional Status N/A [facility] 06-06-2023 Functional Status N/A [facility] 04-03-2023 Functional status Patient at Baseline [facility] Work Phone: 02-01-2023 Functional status Patient at Baseline [facility] Work Phone: 01-26-2023 Functional Status N/A [facility] 01-22-2023 Functional status Patient at Baseline [facility] Work Phone: 01-03-2023 Functional status Patient at Baseline [facility] Work Phone: 12-17-2022 Functional status Patient at Baseline [facility] Work Phone: 12-10-2022 Functional status Patient at Baseline [facility] Work Phone: 11-02-2022 Functional Status N/A [facility] 10-27-2022 Functional Status N/A [facility] 10-19-2022 Functional Status N/A [facility] 10-09-2022 Functional Status N/A [facility] 09-21-2022 Functional Status N/A [facility] 09-08-2022 Functional Status N/A [facility] 08-18-2022 Functional Status N/A [facility] 08-08-2022 Functional Status N/A [facility] 07-17-2022 Functional Status N/A [facility] 06-18-2022 Functional Status N/A [facility] 05-11-2022 Functional Status N/A [facility] 04-21-2022 Functional Status N/A [facility] 04-15-2022 Functional Status No [facility] 03-08-2022 Functional Status N/A [facility] NEGATED: Highlighted row Functional performance Functional status health issues are not documented Disease AG-Idgahsximrquvw-Cw effield Work Phone: Mental Status Date Assessment Result Facility 04-03-2023 Cognitive function Cognitive Sta tus Patient is Progressing Toward Baseline [facility] Work Phone: 02-01-2023 Cognitive function Patient at Baseline [facility] Work Phone: 01-22-2023 Cognitive function Patient at Baseline [facility] Work Phone: 01-03-2023 Cognitive function Patient at Baseline [facility] Work Phone: 12-17-2022 Cognitive function Patient at Baseline [facility] Work Phone: 12-10-2022 Cognitive function Patient at Baseline [facility] Work Phone: NEGATED: Highlighted row Cognitive function [Interpretation] Cognitive status health issues are not documented Disease QN-Dtvdbuyjbplxga-Bl effield Work Phone: Clinical Notes 10-16-2014 to 07-26-2023 Note Date & Type Note Facility 07-26-2023 Hospital Discharg e instructions Additional Instructions Important Contact Information You can call [facility] Inpatient Behavioral [facility] at [phone] any time day or night if you have emergent questions or question regarding discharge instructions. If at any time you are feeling an increase in your psychiatric symptoms, call your physician or behavioral healthcare provider. If any time you have thoughts of harming yourself or others contact one of the following: Call 9-8-8 (available 19/01) Crisis Text Line (available 19/01) text 4HOPE to [phone] [facility] Hope Line (available 8 a.m. Midnight) call [phone] ([phone]) Regular Diet No Activity Restrictions [facility] Work Phone: 07-12-2023 [facility] Discharg e instructions Patient Education 07/12/2023 04:05:01 [...] if you start to feel better. Take hdyu-vsj-knxwgge and prescription medicines only as told by [...] provider. Document Revised: 09/01/2022 Document Reviewed: 09/01/2022 [employer] Patient Education 2022 [employer] 07/12/2023 04:05:01 Nausea and Vomiting, Adult, Gfgf-pf-Puyj Nausea and Vomiting, Adult Nausea is feeling [...] fruit juice). ?Low-calorie sports drinks. Eat bland, bixi-rb-laiyyu foods in small amounts as you are able, such as: ?Bananas. ?Applesauce. ?Rice. ?Low-fat (lean) meats. ?[place]. ?Crackers. Avoid drinking fluids that have a lot of sugar or caffeine in them. This includes energy drinks, sports drinks, and soda. Avoid alcohol. Avoid spicy or fatty foods. General instructions Take zsjy-htk-ahncddn and prescription medicines only as told by your doctor. Drink enough fluid to keep your pee (urine) pale yellow. Wash your hands often with soap and water for at least 20 seconds. If you cannot use soap and water, use hand flight operations dispatch clerk. Make sure that everyone in your home [...] your doctor about eating and drinking. Take wvjo-jsi-nkwcxtq and prescription medicines only as told by your doctor. Contact your doctor if your symptoms get worse or you have new symptoms. Keep all follow-up visits. This information is not intended to replace advice given to you by your health care provider. Make sure you discuss any questions you have with your health care provider. Document Revised: 12/20/2021 Document Reviewed: 12/20/2021 [employer] Patient Education 2022 [employer] 07/12/2023 04:05:01 Flank Pain, Adult, Uzcn-zr-Aqmt Flank Pain, Adult Flank pain is pain [...] Rest as told by your doctor. Take ysun-oaj-xrxuvor and prescription medicines only as told by [...] provider. Document Revised: 08/26/2021 Document Reviewed: 08/26/2021 [employer] Patient Education 2022 [employer] Follow Up Care 07/11/2023 21:05:43 With:SKYE JONES Address: [address] [place] [phone] Business (1) When:07/15/2023 Comments:You can use the Bentyl, Zofran as prescribed as needed for pain and nausea and vomiting. Please follow-up with your surgeon for further evaluation and management. Please return to the ED for any new or worsening symptoms. [facility] 07-11-2023 Evaluation + Plan note [...] day(s), # 14 cap(s), Refills(s) 0, Pharmacy: [id number], 170, cm, 07/11/23 21:19:00 EST, Height/Length [...] q8hr, # 12 tab(s), Refills(s) 0, Pharmacy: [id number], 170, cm, 07/11/23 21:19:00 EST, Height/Length Dosing, 128, kg, 07/11/23:19:00 EST, Weight Dosing Sodium Chloride 0.9% intravenous solution, 1,000 mL, Soln-IV, IV, Once, Stop date 07/11/23 21:50:00 EST, STAT, Start date 07/11/23 21:50:00 EST, Infuse over 61, minute(s) Automated Diff Basic Metabolic Panel Capillary Glucose POC Capillary Glucose POC CBC w/ Auto Diff CT Abdomen/Pelvis w/o Contrast CT Soft Tissue Neck w/ Contrast eGFR Hepatic Function Panel Lipase Level UA With Cult Reflex [facility]01-11-2024 Hospital Discharge instructions* Discharge Instr - Activity* Adelita Pak, SHALOM - 07/09/2023 10:53 AM EST As tolerated * Discharge Instr - Diet* Adelita Pak, SHALOM - 07/09/2023 10:53 AM EST Good nutrition [...] through Care Everywhere. * acetaminophen and oxycodone ([place]) [facility] in [facility] History of Present illness Narrative* Ruben Abdi MD - 07/09/2023 10:12 AM EST Patient is doing better. She was transferred here due to CT at [facility] which reportedly describes seroma versus hematoma. 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 riley LEG SURGERY Right for fracture repair LITHOTRIPSY ID RPR UMBILICAL HERNIA < 5 YRS REDUCIBLE N/A 02/12/2018 REPAIR UMBILICAL HERNIA performed by Marguerite Beckman MD at [facility] OR ROTATOR CUFF REPAIR Right TONSILLECTOMY UPPER GASTROINTESTINAL ENDOSCOPY 02/17/2017 D KAREN JR DO URETER STENT PLACEMENT 3 Restrictions Restrictions/Precautions: Up as Tolerated Safety Devices: Safety Devices Type of Devices: Call light within reach;Left in bed Patient's date of confirmed: Yes General: Patient assessed for rehabilitation services?: Yes Subjective Pain at start of treatment: Yes: 1010 Pain at end of treatment: Yes: 10 Location: [facility] Nursing notified: Declined - nurse aware RN: Vivek Intervention: Repositioned Prior Level of Function: Social/Functional History Lives With: Parent (mom, Dad and son (22)) Home Layout: Two level, Able to Live on Main level with bedroom/bathroom Bathroom Shower/Tub: Walk-in shower, Shower chair with back Bathroom Equipment: Grab bars in shower, Hand-held shower Home Equipment: Cane, Walker, rolling, Grab bars, Art Coordinator ADL Assistance: Independent Homemaking Assistance: Independent Ambulation [...] 3 deficits Assistance / Modification: mod I AMPAC (Six Click) Self care Score How [...] How much help for eating meals?: None AM-PAC Inpatient Daily Activity Raw Score: 24 AM-[facility] Inpatient ADL T-Scale Score : 57.54 [...] Physical Therapy Med Surg Initial Assessment Facility/Department: [address] TELEMETRY Room: [place] [address] NAME: Gisel Carlton : 1975 (48 y.o.) [...] chronic generalized pain associated with significant psychosocial skknnrlmnjo52/14/2020 Fatigue due to exposure 05/12/2020 COVID-19 virus infection 05/05/2020 Acute exacerbation of Chronic right flank pain 04/19/2019 Generalized muscle ache 04/19/2019 Recurrent sinusitis 03/07/2019 Acquired absence of other specified parts of digestive tract 09/18/2018 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 riley LEG SURGERY Right for fracture repair LITHOTRIPSY ID RPR UMBILICAL HERNIA < 5 YRS REDUCIBLE N/A 02/12/2018 REPAIR UMBILICAL HERNIA performed by Marguerite Beckman MD at [facility] OR ROTATOR CUFF REPAIR Right TONSILLECTOMY UPPER GASTROINTESTINAL ENDOSCOPY 02/17/2017 D KAREN MORALEZ DO URETER STENT PLACEMENT 3 Chart Reviewed: [...] Call light within reach, Left in bed [facility] (6 CLICK) BASIC MOBILITY AM-PAC Inpatient Mobility [...] accomplish the task documented in this encounterBON [facility] Hospital course Narrative* Yoly Bro MD - 07/09/2023 6:38 AM EST Images from the original note were not included. Discharge Summary Date:07/09/2023 Patient Name:Gisel Carlton Date of :1975 Age:48 y.o. Admit Date:07/08/2023 Admission Condition:fair Discharged Condition:good Discharge Date: 07/09/23 Discharge Diagnoses Principal Problem: Postoperative hematoma of musculoskeletal structure following musculoskeletal procedure Active Problems: Diabetes mellitus, type II, insulin dependent ([facility]) Class 3 severe obesity due to excess calories with serious comorbidity and body mass index (BMI) of40.0 to 44.9 in adult ([facility]) Acute bursitis of left shoulder Post-operative pain Resolved Problems: * No resolved hospital problems. * Improved left shoulder bursitis. Pain control improved Hospital Stay Narrative of Hospital Course: Patient admitted on transfer from [facility] for uncontrolled postoperative discomfort and pain. CT scan [facility] report images not available. Reported to show [...] ARIPiprazole 15 MG tablet Commonly known as: [employer] blood glucose monitor kit and supplies 1 kit by Other route 4 times daily (before meals and nightly) Pt test 4x daily Dx E11.65. May substitute for generic or insurance covered product blood glucose test strips 1 strip by Other route 4 times daily (before meals and nightly) Pt test 4x daily Dx E11.65. May substitute for generic or insurance covered product winbeanonxohrth-ltybmhlzkjkyskn-EQ 2-30-10 MG/5ML syrup Take 5 mLs by mouth 4 times daily as needed for Cough busPIRone 15 MG tablet Commonly known as: BUSPAR * DULoxetine 60 MG extended release capsule Commonly known as: CYMBALTA * DULoxetine 30 MG extended release capsule Commonly known as: CYMBALTA FreeStyle Myron 14 Day [place] Pool 1 actuation by Does not apply route 4 times daily (before meals and nightly) FreeStyle Myron 2 Sensor Mis USE DIRECTED to test BLOOD SUGAR BEFORE [...] once a week vitamin D 1.25 MG (55236 UT) Caps capsule Commonly known as: ERGOCALCIFEROL [...] C5/C6 and C6/C7. documented in this encounterBON [facility] History of Present illness Narrative* Selma Alarcon, PT - 07/01/2023 1:58 PM EST Physical Therapy Med Surg Initial Assessment Facility/Department: [address] ORTHO TELE Room: [place] [address] NAME: Gisel Carlton : 1975 (48 y.o.) [...] chronic generalized pain associated with significant psychosocial lkvgsmuoqsf97/14/2020 Fatigue due to exposure 05/12/2020 COVID-19 virus infection 05/05/2020 Acute exacerbation of Chronic right flank pain 04/19/2019 Generalized muscle ache 04/19/2019 Recurrent sinusitis 03/07/2019 Acquired absence of other specified parts of digestive tract 09/18/2018 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 Pain Pain: 8 pre and post session neck pain. RN [...] Independent (No AD) Transfer Assistance: Independent Active Communications Writer: No Patient's Communications Writer Info: Mom Occupation: Off due to injury Type of Occupation: [place] [employer] [facility] OBJECTIVE: Vision Vision: Impaired Vision Exceptions: Wears [...] All fall risk precautions in place Goals: Jail Goals Pulpwood Cutter Goal 1: NA [facility] (6 CLICK) BASIC MOBILITY AM-PAC Inpatient Mobility Raw Score : 24 Therapy Time: Individual Time In 954 Time Out 1003 Minutes 8 Selma Alarcon [...] EST Hospitalist Progress Note PCP: Skye Jones, OAKES MACHINE OPERATOR - WASTE HAND Date of Admission: 06/30/2023 Chief Complaint: no [...] Patient in no distress upon departure from [address] [place] [address]. * Jacki Claire OTR/Yomaira - 07/01/2023 11:01 AM EST ALLY FRAGA OCCUPATIONAL THERAPY EVALUATION - ACUTE NAME: Gisel Carlton : 1975 (48 y.o.) CODE STATUS: Full Code Room: [place] [address] Date of Service: 07/01/2023 Patient Diagnosis(es): Cervical [...] chronic generalized pain associated with significant psychosocial acjpetctzpz37/14/2020 Fatigue due to exposure 05/12/2020 COVID-19 virus infection 05/05/2020 Acute exacerbation of Chronic right flank pain 04/19/2019 Generalized muscle ache 04/19/2019 Recurrent sinusitis 03/07/2019 Acquired absence of other specified parts of digestive tract 09/18/2018 nursing home (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 of insulin (HCC) 09/18/2018 Pure [...] LEG SURGERY Right for fracture repair LITHOTRIPSY ID RPR UMBILICAL HERNIA < 5 YRS REDUCIBLE N/A 02/12/2018 REPAIR UMBILICAL HERNIA performed by Marguerite Beckman MD at [facility] OR ROTATOR CUFF REPAIR Right TONSILLECTOMY UPPER GASTROINTESTINAL ENDOSCOPY 02/17/2017 Judi JONES JR DO URETER STENT PLACEMENT 3 Restrictions Restrictions/Precautions: Up Ad Keshia Safety Devices: Safety Devices Type of Devices: Call light within reach;Left in bed Patient's date of confirmed: Yes General: Chart Reviewed: Yes Patient assessed for rehabilitation services?: Yes Subjective Subjective: I'm okay 8/10 neck Pain at start of treatment: Yes: 8/10 Pain at end of treatment: Yes: 8/10 Location: Neck Description: Sore/aching Nursing notified: Declined [...] Independent (No AD) Transfer Assistance: Independent Active Communications Writer: No Patient's Communications Writer Info: Mom Occupation: Off due to injury Type of Occupation: [place] [employer] [employer] [facility] OBJECTIVE: Orientation Status: Orientation Overall Orientation Status: Within Functional Limits Observation: Observation/Palpation Posture: Good Observation: Pt alert and attentive, agreeable to therapy assessment, no acute distress noted Cognition Status: Cognition Overall Cognitive Status: WF Cognition Comment: Mild increased processing time Perception Status: Perception Overall Perceptual Status: WF Vision and Hearing Status: Vision Vision Exceptions: [...] old woman from home who presents to [facility] for planned cervical decompression. Pt demonstrates no [...] How much help for eating meals?: None AM-PAC Inpatient Daily Activity Raw Score: 24 AM-PAC Inpatient ADL T-Scale Score : 57.54 ADL [...] Yes Comments: Therapy Time: Individual Time In 55 Time Out 1003 Minutes 8 Eval: 8 [...] at this time. documented in this [facility] Note Intraprocedural fluoroscopic spot images as above. See separate procedure report for more information. [facility] [id number] Hospital course Narrative* Ruben Abdi MD - 07/01/2023 8:37 AM EST Images from the original note were not included. Discharge Summary Gisel Carlton : 1975 ADMIT DATE: 06/30/2023 DISCHARGE DATE: 07/01/2023 PRIMARY CARE PHYSICIAN: Skye Jones APRN - JOLYNN VISIT STATUS: Observation CODE STATUS: Full Code [...] PACU in stable condition and then to [facility]. They received 24 hours of prophylactic intravenous [...] insurance covered product FreeStyle Myron 14 Day [place] Pool 1 actuation by Does not apply [...] substitute for generic or insurance covered product trzuqlzndtmksyt-fwwhxeijowhhzgr-AJ 2-30-10 MG/5ML syrup Take 5 mLs by [...] once a week vitamin D 1.25 MG (24590 UT) Caps capsule Commonly known as: ERGOCALCIFEROL Take 1 capsule by mouth once a week * This list has 2 medication(s) that are the same as other medications prescribed for you. Read thedirections carefully, and ask your doctor or other care provider to review them with you. Where to Get Your Medications These medications were sent to [facility] - [place], [place] - [address] [phone] - F [phone] [place] [address] mupirocin 2 % ointment oxyCODONE 5 MG immediate release tablet DIET: ADULT DIET; Regular; 4 carb choices (60 gm/meal) ACTIVITY: No lifting greater than 30 pounds x 3 weeks Follow up with [facility] [place] [address] Abdi in 4 weeks with cervical x-rays before appointment Follow up with Skye Jones APRN - CNP , call to make appointment INSTRUCTIONS TO [...] MD 07/01/2023, 8:37 AM documented in [facility] Hospital Discharge instructions* Discharge Instructions* Ruben Abdi MD - 06/30/2023 10:47 AM EST No lifting greater than 30 pounds x 3 weeks. May shower, weight 1 week to soak in tub. To follow-up with nurse practitioner in 2 weeks, to follow-up with Dr. Abdi in 4 weeks with cervical x-rays before appointment. documented in this [facility]CAR[facility] Hospital Discharge instructions Patient Education 06/07/2023 05:35:19 [...] told by your health care provider. Take lnsq-fkg-cvzzqvp and prescription medicines only as told by [...] provider. Document Revised: 08/26/2021 Document Reviewed: 08/26/2021 [employer] Patient Education 2022 [employer] 06/07/2023 05:35:19 Constipation, Adult Constipation, Adult Constipation [...] as fried or sweet foods. These include mohawk fries, hamburgers, cookies, candies, and soda. Drink enough fluid to keep your urine pale yellow. General instructions Exercise regularly or as told by your health care provider. Try to do 150 minutes of moderate exercise each week. Use the bathroom when you have the urge to go. Do not hold it in. Take izgn-ucm-uclrexb and prescription medicines only as told by [...] to keep your urine pale yellow. Take osew-hba-ywerxgm and prescription medicines only as told by your health care provider. This includes any fiber supplements. This information is not intended to replace advice given to you by your health care provider. Make sure you discuss any questions you have with your health care provider. Document Revised: 05/02/2020 Document Reviewed: 05/02/2020 [employer] Patient Education 2022 [employer] Follow Up Care 06/06/2023 22:17:42 With:SKYE JONES Address: [address] [place] [phone]- [phone] Business (1) When:Within 3 Day(s) [facility]12-09-2023 Evaluation + Plan noteExtracted from: Title:ED Note Author:Gery Putnam DO Date :06/06/23 Constipation (K59.00: Consti pation, unspecified) Flank pain (R10.9: Unspecified abdominal pain) Orders: dicyclomine, 10 mg = 1 cap(s), Oral, QID, X 7 day(s), # 28 cap(s), Refills(s) 0, Pharmacy: [facility], 170, cm, 06/06/23 22:30:00 EST, Height/Length [...] taking, # 527 gram, Refills(s) 0, Pharmacy: [facility], 170, cm, 06/06/23 22:30:00 EST, Height/Length [...] Qual UA With Cult Reflex Urine Culture [facility]10-24-2023 Evaluation note* Encounter Date Diagnosis [...] and leg. All questions and concerns addressed. Vizibility Other 08-06-2023 Discharge summary Author Maxim Pinto [facility] February 01, 2023 11:12am Note Date/Time February 01, 2023 11: 10am 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 [employer] with her last date of employment being [...] No Activity Restrictions Instructions: Depression, Adult (DC), [facility] Behavioral Health DC Instructions Prescriptions: New venlafaxine [...] levothyroxine 50 mcg Tablet 50 mcg PO DAILY.629 Qty: 90 0RF metoclopramide HCl 5 mg [...] (3 mL) insulin pen See Protocol [facility] Protocol: Corrective Scale #2 Condition: 150-199 mg/dL [...] 15 Days Qty: 15 1RF Follow Up: [facility] [Outside] - 02/02/23 10:15 am (You have a follow up appointment with [facility] on Thursday, February 02, 2023 at 10:15am. This will be a phone call appointment with a pillowcase cutter, please have your phone available around this time. At this time further appointments will be made.) [facility] Hotline [Outside] Skye Jones APRN, [employer] [Primary Care Provider] - (Contact your primary careprovider with any medical needs. ) Documented By: Maxim Pinto MD 02/01/23 1108 Signed By: <Electronically signed by Maxim Pinto MD> 02/01/23 1111 [facility] Work Phone: [phone] 390-659108-05-2023 Progress note Author Maxim Pinto [facility] January 31, 2023 12:16pm Note Date/Time January 31, 2023 12: 16pm [facility] [address] [place] [address] Psychiatry Progress Note Signed Patient: Gisel Carlton MR#: [id number] : 1975 Acct:[id number] Age/Sex: 47 / F Adm Date: 3 Loc: Room: [address] [place] [address] Type : ADM IN Attending Dr: Yves [...] <Electronically signed by Maxim Pinto MD> 01/31/23 1627 [facility] Work Phone: 1(245) 354-688308-04-2023 Progress note Author Braulio argueta [facility] January 30, 2023 6:58am Note Date/Time January 30, 2023 6:[address] [facility] [address] [place] [address] Psychiatry Progress Note Signed Patient: Gisel Carlton MR#: [id number] : 1975 Acct:[id number] Age/Sex: 47 / F Adm Date: 3 Loc: Room: [address] [place] [address] Type : ADM IN Attending Dr: Yves [...] signed by Braulio Dukes MD> 01/30/23 0658 [facility] Work Phone: [phone] 108-412608-03-2023 History and physical note Author Braulio argueta [facility] January 29, 2023 2:12pm Note Date/Time January 29, 2023 2:[address] [facility] [address] [place] [address] Psychiatry H&P Signed Patient: Gisel Carlton MR#: [id number] : 1975 Acct:[id number] Age/Sex: 47 / F Adm Date: 3 Loc: Room: [address] [place] [address] Type: ADM IN Attending Dr: Yves Dukes MD Copies to: MD Skye Perales, OAKES MACHINE OPERATOR, WASTE HAND~ Date of Service: 01/29/2023 HPI History of [...] has lost everything ,marking her diagnosis with COVANIA in 2019, leaving her in 2019, losing [...] Reports following with day treatment program in [place] and is supposed to meet with a [...] Employment: Currently unemployed, 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 Cjpg-fgn-fmktclr medicines to treat discomfort. Drinking enough water [...] Follow these instructions at home: Medicines Take ogyp-zlg-dfqvnhu and prescription medicines only as told by [...] provider. Document Revised: 01/25/2021 Document Reviewed: 01/25/2021 [employer] Patient Education 2022 [employer] Follow Up Care 01/26/2023 19:08:33 With:SKYE JONES Address: [address] [place] [phone]- [phone] Business (1) When:Within 3 Day(s) [facility]07-31-2023 Evaluation + Plan noteExtracted from: [...] day(s), # 10 cap(s), Refills(s) 0, Pharmacy: [facility], 170.2, cm, 01/26/23 19:25:00 EDT, Height/Length Dosing, 123, kg, 01/26/23 19:25:00 EDT, Weight Dosing ondansetron, 4 mg = 1 tab(s), Oral, q8hr, PRN Nausea/Vomiting, # 16 tab(s), Refills(s) 0, Pharmacy: [facility], 170.2, cm, 01/26/23 19:25:00 EDT, Height/Length [...] Diagnostic Tests Pending * Urine Culture 01/26/23 [facility]07-27-2023 Discharge summary Author Maxim Pinto [facility] January 22, 2023 11:55am Note Date/Time January 22, 2023 10:[address] 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 She describedher as trigger as she is needy . Patient feels upset because her mom criticizes her all the time.? She also endorses symptoms of caregiver burnout.? Patient was thinking about moving to [place] to be with her and? feels upsetstating this plan fell through. [...] (DC), Gastroparesis (Delayed Gastric Emptying) (DC), Metoclopramide, [facility] Behavior[facility] Health DC Instructions Prescriptions: New levothyroxine [...] Patient Ordered By: Bertha Taylor Follow Up: [facility] [Outside] [facility] Hotline [Outside] Skye Jones APRN, [employer] [Primary Care Provider] - (follow up post hospitalization next 1-2 weeks with med changes, also need labs for thyroid 6-8 weeks) Documented By: Maxim Pinto MD 01/22/23 1051 Signed By: <Electronically signed by Maxim Pinto MD> 01/22/23 1151 [facility] Work Phone: 1(259) 237-754107-26-2023 Progress note Author Maxim Pinto [facility] January 21, 2023 12:42pm Note Date/Time January 21, 2023 12:[address] [facility] [address] [place] [address] Psychiatry Progress Note Signed Patient: Gisel Carlton MR#: [id number] : 1975 Acct:[id number] Age/Sex: 47 / F Adm Date: 3 Loc: Room: [address] [place] [address] Type : ADM IN Attending Dr: Yves [...] <Electronically signed by Maxim Pinto MD> 01/21/231241 [facility] Work Phone: [phone]) 713-210107-25-2023 Progress note Author Maxim Pinto [facility] January 20, 2023 12:19pm Note Date/Time January 20, 2023 12:[address] [facility] [address] [place] [address] Psychiatry Progress Note Signed Patient: Gisel Carlton MR#: [id number] : 1975 Acct:[id number] Age/Sex: 47 / F Adm Date: 3 Loc: Room: [address] [place] [address] Type : ADM IN Attending Dr: Yves [...] alternatives explained Documented By: Maxim Pinto MD 01/20/231217 Signed By: <Electronically signed by Maxim Pinto MD> 01/20/231218 [facility] Work Phone: 1(523) 603-177607-24-2023 Progress note Author Maxim Pinto [facility] January 19, 2023 1:00pm Note Date/Time January 19, 2023 12:[address] [facility] [address] [place] [address] Psychiatry Progress Note Signed with Jake Patient: Gisel Carlton MR#: [id number] : 1975 Acct:[id number] Age/Sex: 47 / F Adm Date: 3 Loc: 1S Room: [address] [place] [address] Type : ADM IN Attending Dr: Yves Dukes MD Copies to: ~ ADDENDUM1 cymbalta currently at 60mg BID Addendum Documented By: Maxim Pinto MD 01/19/23 1300 Addendum Signed By: <Electronically signed by Maxim Pinto MD> 01/19/23 1300 Date of Service: 01/19/2023 [...] <Electronically signed by Maxim Pinto MD> 01/19/23 0210 [facility] Work Phone: 1(768) 197-604907-23-2023 Consult note Author Miko العلي [facility] January 18, 2023 3:00pm Note Date/Time January 18, 2023 12:[address] [facility] [address] [place] [address] Hospitalist Consult Note Signed Patient: Gisel Carlton MR#: [id number] : 1975 Acct:[id number] Age/Sex: 47 / F Adm Date: 3 Loc: Room: [address] [place] [address] Type: ADM IN Attending Dr: Yves Dukes MD Copies to: MD Miko Perales MD Lynn A Stackhouse, TREY-BC Skye Jones APRN, WASTE HAND~ HPI DATE OF CONSULTATION: 01/18/23 REQUESTING PROVIDER: Yves Dukes Consult Narrative Reason for Consult: Abnormal TSH, diabetes, hypertension HPI: 47-year-old female past medical history significant for hyperlipidemia, hypertension, diabetes, nephrolithiasis. She presented to outside emergency department with mental health complaints. Transferred to [facility] for ongoing psychiatric care. Hospitalist team is [...] negative unless noted below or in HPI [facility] Attestation Statement: The following information was validated with the patient. Vaccinated for COVID-19?: Unknown Medical History (Updated 01/18/23 @ 12:43 by TREY Dee-SHANIA) Carpal tunnel syndrome, bilateral Chronic GERD COVID-19 Diabetes Diabetic gastroparesis Hernia of abdominal wall Hyperlipemia Hypertension Hypothyroid Kidney calculi Leg fracture, right Torn rotator cuff RIGHT Surgical History (Updated 01/18/23 @ 12:43 by TREY Dee-SHANIA) H/O lithotripsy H/O: hysterectomy History of cholecystectomy [...] 01/18/23 08:23 Celecoxib 200 Mg Capsule PO 07/22/24 08:59 200 mg DAILY FAISAL Administration Duloxetine HCl 60 mg 01/18/23 09:00 01/18/23 08:23 Duloxetine 60 Mg Capsule. PO 01/18/24 08:59 60 mg DAILY FAISAL Administration Duloxetine HCl 60 mg 01/18/23 22:00 Duloxetine 60 Mg Capsule. PO 01/18/24 21:59 QHS FAISAL Gabapentin 600 mg [...] 01/18/23 12:21 Olanzapine 5 Mg Tablet PO 07/22/24 03:38 5 mg Q6H PRN Administration Agitation Olanzapine 5 mg 01/18/23 22:00 Olanzapine 5 Mg Tablet PO 01/18/24 21:59 HS [facility] Pantoprazole Sodium 40 mg 01/18/23 09:00 01/18/23 08:23 Pantoprazole 40 Mg Tablet. PO 01/18/24 08:59 40 mg DAILY FAISAL Administration Polyethylene Glycol 17 gm 01/18/23 07:33 Polyethylene Glycol 3350 17 Gm Powd.Pack PO 01/18/24 07:32 DAILY PRN Constipation Promethazine HCl 25 mg 01/18/23 22:00 Promethazine 25 Mg Tablet PO 01/18/24 21:59 HS [facility] Sterile Water 2.1 ml 01/18/23 03:39 Water For Injection,Sterile 10 Ml Vial INJECTION 01/18/24 03:38 PRN PRN To dilute OLANZapine (ZyPREXA) Tizanidine HCl 4 mg 01/18/23 07:33 01/18/23 08:23 Tizanidine 4 Mg Tablet PO 01/18/24 07:32 4 mg TID PRN Administration Pain Trazodone HCl 200 mg 01/18/23 22:00 Trazodone 100 Mg Tablet PO 01/18/24 21:59 HS [facility] Exam Physical Exam Vital Signs: Temp Pulse [...] 3 1225 Signed By: <Electronically signed by NAEL Taylor> 01/18/23 1333 <Electronically signed by Miko العلي MD> 01/18/23 1500 [facility] Work Phone: 1([phone]) 750-273207-23-2023 History and physical note Author Braulio argueta [facility] January 18, 2023 9:28am Note Date/Time January 18, 2023 7:[address] 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 She describedher as trigger as she is needy . Patient feels upset because her mom criticizes her all the time. She also endorses symptoms of caregiver burnout. Patient was thinking about moving to [place] to be with her BF and fee;s [...] discharge. Documented By: Braulio Dukes MD 3 0717 Signed By: <Electronically signed by Braulio Dukes MD> 01/18/23 0928 [facility] Work Phone: [phone]) [phone] Discharge summary Author Maxim Pinto [facility] December 10, 2022 11:46am Note Date/Time December 10, 2022 11:[address] [facility] [address] [place] [address] Discharge Summary Signed Patient: Gisel Carlton MR#: [id number] : 1975 Acct:[id number] Age/Sex: 47 / F Adm Date: 3 Loc: Room: [address] [place] [address]: Yves Dukes MD Copies to: MD Maxim Perales MD Nicole E Leach, OAKES MACHINE OPERATOR, WASTE HAND~ Providers Date of Discharge: 12/10/22 Discharging Provider: [...] primary care physician. Instructions: Depression, Adult (DC), [facility] Behavioral Health DC Instructions Prescriptions: New tamsulosin [...] BY MOUTH NIGHTLY FOR SLEEP [facility] [Outside] Skye Joens APRN, [employer] [Primary Care Provider] - (Please follow up with your primary provider for any medical needs. ) Documented By: Maxim Pinto MD 12/10/22 114 Signed By: <Electronically signed by Maxim Pinto MD> 12/10/22 1146 [facility] Work Phone: 1([phone]) 859-998406-13-2023 Progress note Author Maxim Pinto [facility] December 09, 2022 12:10pm Note Date/Time December 09, 2022 12:[address] [facility] [address] [place] [address] Psychiatry Progress Note Signed Patient: Gisel Carlton MR#: [id number] : 1975 Acct:[id number] Age/Sex: 47 / F Adm Date: 3 Loc: Room: [address] [place] [address] Type : ADM IN Attending Dr: Yves [...] signed by Maxim Pinto MD> 12/09/22 1210 [facility] Work Phone: [phone]) 771-351806-12-2023 Progress note Author Maxim Pinto [facility] December 08, 2022 11:55am Note Date/Time December 08, 2022 11:[address] [facility] [address] [place] [address] Psychiatry Progress Note Signed Patient: Gisel Carlton MR#: [id number] : 1975 Acct:[id number] Age/Sex: 47 / F Adm Date: 3 Loc: Room: [address] [place] [address] Type : ADM IN Attending Dr: Yves [...] Acute Documented By: Maxim Pinto MD 12/08/22 1154 Signed By: <Electronically signed by Maxim Pinto MD> 12/08/22 1155 [facility] Work Phone: [phone]) 110-651206-11-2023 Progress note Author Braulio argueta [facility] December 07, 2022 7:09am Note Date/Time December 07, 2022 7:[address] [facility] [address] [place] [address] Psychiatry Progress Note Signed Patient: Gisel Carlton MR#: [id number] : 1975 Acct:[id number] Age/Sex: 47 / F Adm Date: 3 Loc: Room: [address] [place] [address] Type : ADM IN Attending Dr: Yves Dukes MD Copies to: ~ Date of Service: 12/07/2022 Subjective Subjective Narrative: Ms. Carlton reported that she saw the medical [employer] and talked about her medical problems. She [...] signed by Braulio Dukes MD> 12/07/22 0709 [facility] Work Phone: [phone]) [phone] Consult note Author Bertha Taylor [facility] December 06, 2022 6:18pm Note Date/Time December 06, 2022 4:[address] [facility] [address] [place], [place] [id number] Hospitalist Consult Note Signed Patient: Gisel Carlton MR#: [id number] : 1975 Acct:[id number] Age/Sex: 47 / F Adm Date: 3 Loc: Room: [address] [place] [address] Type: ADM IN Attending Dr: Yves Dukes MD Copies to: MD Bertha Perales, ANP-BC Skye Jones APRN, WASTE HAND~ HPI DATE OF CONSULTATION: 12/06/22 REQUESTING PROVIDER: [...] negative unless noted below or in HPI [facility] Attestation Statement: The following information was validated [...] tirzepatide 2.5 mg/0.5 mL subcutaneous pen injector (Timunolamidero) 2.5 mg subcut QWEEK 08/02/22 [History Confirmed [...] Water For Injection,Sterile 10 Ml Vial INJECTION 06/09/24 04:35 PRN PRN To dilute OLANZapine (ZyPREXA) [...] % (Auto) 55.9, Lymph % (Auto) 31.5, [place] % (Auto) 7.3, Eos % (Auto) 4.3, Baso % (Auto) 1.0, Nucleat RBC Rel Count 0.1, Neut # (Auto) 4.3, Lymph # (Auto) 2.4, [place] # (Auto) 0.6, Eos # (Auto) 0.3, Baso # (Auto) 0.1, Monocyte Dist Width 17.28 12/05/22 21:27: Urine Opiates Screen Negative, Ur Barbiturates Screen Negative, Ur Phencyclidine Scrn Negative, Ur Amphetamines Screen Negative, U Benzodiazepines Scrn Negative, Urine Cocaine Screen Negative, U Marijuana (THC) Screen Negative 12/05/22 21:27: Urine Color Yellow, Urine Appearance Cloudy A, Urine pH 5.5, Ur Specific Dent 1.025, Urine Protein Negative, Urine Glucose (UA) [...] By: <Electronically signed by NAEL Taylor> 12/06/22 1811 [facility] Work Phone: [phone]) 925-600306-10-2023 History and physical note Author Braulio argueta [facility] December 06, 2022 8:57am Note Date/Time December 06, 2022 7:[address] [facility] [address] [place] [address] Psychiatry H&P Signed Patient: Gisel Carlton MR#: [id number] : 1975 Acct:[id number] Age/Sex: 47 / F Adm Date: 3 Loc: 1S Room: [address] [place] [address] Type: ADM IN Attending Dr: Yves Dukes MD Copies to: MD Skye Perales, OAKES MACHINE OPERATOR, WASTE HAND~ Date of Service: 12/06/2022 HPI History of [...] Cloudy A Urine pH 5.5 Ur Specific Dent 1.025 Urine Protein Negative Urine Glucose (UA) [...] Color Urine Appearance Urine pH Ur Specific Dent Urine Protein Urine Glucose (UA) Urine Ketones [...] signed by Braulio Dukes MD> 12/06/22 0857 [facility] Work Phone: [phone] 426-703305-08-2023 Hospital Discharge instructions Patient Education 11/03/2022 02:05:46 [...] these instructions at home: General instructions Take jdpc-fvn-vifgznn and prescription medicines only as told by [...] alert jewelry. Where to find more information [place] [employer] Association: www.diabetes.org Contact a health care [...] provider. Document Revised: 03/29/2021 Document Reviewed: 03/29/2021 [employer] Patient Education 2022 [employer]. Follow Up Care 11/02/2022 21:33:45 With:SKYE JONES Address: [address] [place] [address] 6 [place] [address] [phone] Business (1) When:Within 3 Day(s) [facility]05-07-2023 Evaluation + Plan noteExtracted from: [...] 4+ Views Right XR Shoulder Complete Right [facility]05-02-2023 Hospital Discharge instructions Patient Education 10/27/2022 22:03:32 Nausea and Vomiting, Adult, Zqix-oo-Gyny Nausea and Vomiting, Adult Nausea is feeling [...] fruit juice). ?Low-calorie sports drinks. Eat bland, wcjg-dt-anpydc foods in small amounts as you are able, such as: ?Bananas. ?Applesauce. ?Rice. ?Low-fat (lean) meats. ?[place]. ?Crackers. Avoid drinking fluids that have a lot of sugar or caffeine in them. This includes energy drinks, sports drinks, and soda. Avoid alcohol. Avoid spicy or fatty foods. General instructions Take rttj-rzd-qkerpiz and prescription medicines only as told by your doctor. Drink enough fluid to keep your pee (urine) pale yellow. Wash your hands often with soap and water for at least 20 seconds. If you cannot use soap and water, use hand flight operations dispatch clerk. Make sure that everyone in your home [...] your doctor about eating and drinking. Take jfml-neu-gqnkevd and prescription medicines only as told by your doctor. Contact your doctor if your symptoms get worse or you have new symptoms. Keep all follow-up visits. This information is not intended to replace advice given to you by your health care provider. Make sure you discuss any questions you have with your health care provider. Document Revised: 12/20/2021 Document Reviewed: 12/20/2021 [employer] Patient Education 2022 [employer]. 10/27/2022 22:03:32 Hematuria, Adult Hematuria, Adult Hematuria [...] Follow these instructions at home: Medicines Take cghg-yxe-nyxzjfs and prescription medicines only as told by [...] or the blood stops without treatment. Take whlg-yir-qvmgrtb and prescription medicines only as told by your health care provider. Drink enough fluid to keep your urine pale yellow. This information is not intended to replace advice given to you by your health care provider. Make sure you discuss any questions you have with your health care provider. Document Revised: 02/13/2021 Document Reviewed: 02/13/2021 [employer] Patient Education 2022 [employer]. 10/27/2022 22:03:32 Flank Pain, Adult, Pwpl-vd-Ogcu Flank Pain, Adult Flank pain is pain [...] Rest as told by your doctor. Take rlhp-hww-lwnatjg and prescription medicines only as told by [...] provider. Document Revised: 08/26/2021 Document Reviewed: 08/26/2021 [employer] Patient Education 2022 [employer]. Follow Up Care 10/27/2022 19:47:23 With:Sarah Vega Address: [address] [phone] Business (1) When:10/30/2022 21:42:04 Comments:Follow-up with Dr. Vega for further evaluation of your right-sided flank pain. With:SKYE JONES Address: [address] [place] [phone]- [phone] Business (1) When:10/30/2022 21:41:47 Comments:Follow-up with your primary care provider in 3 to 5 days. If symptoms worsen, do not improve, or new symptoms arise please report back to emergency department for further evaluation. [facility]04-23-2023 Hospital Discharge instructions Patient Education [...] condition. Follow these instructions at home: Take gfsp-afe-tkltbxs and prescription medicines only as told by [...] and water are not available, use hand flight operations dispatch clerk. Avoid contact with people who have cold [...] it is easier to cough up. Take cbqu-pys-xrcxcpb and prescription medicines only as told by [...] provider. Document Revised: 10/16/2021 Document Reviewed: 10/16/2021 [employer] Patient Education 2022 [employer]. 10/19/2022 17:56:02 Upper Respiratory Infection, Adult, Jmoq-ec-Balz Upper Respiratory Infection, Adult An upper respiratory [...] medicines to help relieve symptoms, such as: Wwol-qpc-gpghhzj cold medicines. Medicines to reduce coughing (cough [...] and other clear broths. General instructions Take rpki-dsn-fqjmuqf and prescription medicines only as told by [...] cannot use soap and water, use hand flight operations dispatch clerk. Avoid touching your mouth, face, eyes, or [...] get better within 7 10 days. Take gwxw-rjf-vfzbspe and prescription medicines only as told by your doctor. This information is not intended to replace advice given to you by your health care provider. Make sure you discuss any questions you have with your health care provider. Document Revised: 01/15/2022 Document Reviewed: 01/15/2022 [employer] Patient Education 2022 [employer]. 10/19/2022 17:56:02 Flank Pain, Adult Flank Pain, [...] told by your health care provider. Take ntok-ryo-yfomdrr and prescription medicines only as told by [...] provider. Document Revised: 08/26/2021 Document Reviewed: 08/26/2021 [employer] Patient Education 2022 [employer]. Follow Up Care 10/19/2022 14:33:52 With:SKYE JONES Address: [address] [place] [phone]- [phone] Business (1) When:10/22/2022 17:15:53 Comments:Follow-up with your primary care provider in 3 to 5 days. If symptoms worsen, do not improve, or new symptoms arise please report back to emergency department for further evaluation. Continue follow-up with urologist as well. [facility]04-14-2023 Hospital Discharge instructions Patient Education 10/09/2022 23:08:23 Kidney Stones, Soes-sf-Pyse Kidney Stones Kidney stones are rock-like masses [...] Follow these instructions at home: Medicines Take zqjf-xoo-gbxbtgv and prescription medicines only as told by [...] 12/01/2008 Document Revised: 11/01/2019 Document Reviewed: 11/01/2019 [employer] Patient Education 2020 [employer] Follow Up Care 10/09/2022 19:35:44 With:Contact your urologist first thing Thursday morning for follow-up Address:Unknown When: Unknown With:SKYE JONES Address: [address] [place] [address] 6 [place] [address]- [phone] Business (1) When:Within 3 Day(s) [facility]04-13-2023 Evaluation + Plan noteExtracted from: [...] q8hr, # 10 tab(s), Refills(s) 0, [facility], cm, 10/09/22 19:53:00 EDT, [...] day(s), # 4 cap(s), Refills(s) 0, Pharmacy: [facility], 170, cm, 10/09/22 19:53:00 EDT, Height/Length Dosing, 118, kg, 10/09/22 19:53:00 EDT, Weight Dosing U Beta Hcg Qual UA With Cult Reflex Urine Strainer to go US Renal [facility]03-27-2023 Evaluation + Plan noteExtracted from: Title:ED Note Author:Sybil Muhammad DO Date :09/22/22 Flank pain (R10.9: Unspecifi ed [...] Nausea/Vomiting, # 6 EA, Refills(s) 0, Pharmacy: [facility], 170, cm, 09/21/22 23:04:00 EDT, Height/Length Dosing, 120.4, kg, 09/21/22 23:04:00 EDT, Weight Dosing promethazine, 12.5 mg = 1 tab(s), Oral, q6hr, PRN Nausea, # 12 tab(s), Refills(s) 0, Pharmacy: [facility], 170, cm, 09/21/22 23:04:00 EDT, Height/Length Dosing, 120.4, kg, 09/21/22 23:04:00 EDT, Weight Dosing Automated Diff Basic Metabolic Panel CBC w/ Auto Diff eGFR UA With Cult Reflex XR Abdomen 1 View [facility]03-27-2023 Hospital Discharge instructions Patient Education 09/22/2022 03:12:53 Nausea, Adult, Pnsg-bn-Fitc Nausea, Adult Nausea is feeling sick to [...] fruit juice). ?Low-calorie sports drinks. Eat bland, este-vx-fkumqs foods in small amounts as you are able, such as: ?Bananas. ?Applesauce. ?Rice. ?Low-fat (lean) meats. ?[place]. ?Crackers. Avoid drinking fluids that have a lot of sugar or caffeine in them. This includes energy drinks, sports drinks, and soda. Avoid alcohol. Avoid spicy or fatty foods. General instructions Take ozgp-muh-nqoavsh and prescription medicines only as told by your doctor. Rest at home while you get better. Drink enough fluid to keep your pee (urine) pale yellow. Take slow and deep breaths when you feel sick to your stomach. Avoid food or things that have strong smells. Wash your hands often with soap and water. If you cannot use soap and water, use hand flight operations dispatch clerk. Make sure that all people in your [...] drink what your doctor tells you. Take vihc-mba-tgnytxp and prescription medicines only as told by [...] 06/03/2012 Document Revised: 11/23/2018 Document Reviewed: 11/23/2018 [employer] Patient Education 2020 [employer]. 09/22/2022 03:12:53 Flank Pain, Adult, Jubv-py-Qhzl Flank Pain, Adult Flank pain is pain [...] Rest as told by your doctor. Take tjop-gwv-ltvwvvc and prescription medicines only as told by [...] 03/24/2009 Document Revised: 05/28/2018 Document Reviewed: 10/05/2017 [employer] Patient Education 2020 [employer]. Follow Up Care 09/21/2022 22:18:55 With:SKYE JONES Address: [address] [place] [address] Rd [address] [place] [phone] Business (1) When:09/25/2022 Comments:Please follow-up with your primary care doctor next 2 to 3 days for further evaluation and management. You can use the Phenergan every 6-8 hours as needed for nausea and vomiting. [facility]03-14-2023 Hospital Discharge instructions Patient Education [...] Treatment for this condition includes: Antibiotic medicine. Pudo-lkg-gwvdezl medicines to treat discomfort. Drinking enough water [...] Follow these instructions at home: Medicines Take ppfr-eie-nzsyade and prescription medicines only as told by [...] 03/25/2006 Document Revised: 06/02/2019 Document Reviewed: 12/23/2018 [employer] Patient Education 2020 [employer]. Follow Up Care 09/08/2022 19:40:05 With:SKYE JONES Address: [address] [place] [address] 6 [place] [address]- [phone] Business (1) When:09/11/2022 Comments:Call the office of [...] you develop any new or worsening symptoms. [facility]03-13-2023 Evaluation + Plan noteExtracted from: Title:ED Note Author:Geo Chaves PA-C Gerald e:09/08/22 Flank pain (R10.9: Unspecifi ed abdominal pain) Urinary tract infection (N39.0: Urinary tract infection, site not specified) Orders: acetaminophen-oxycodone, 1 tab(s), Oral, q6hr, 8 tab(s), Refill(s) 0, [facility], 170, cm, 09/08/22 19:56:00 EDT, Height/Length Dosing, 116.8, kg, 09/08/22 19:56:00 EDT, Weight Dosing HYDROmorphone, 0.5 mg = 0.5 mL, Injection, IV Push, Once, Stop date 09/08/22 20:32:00 EDT, STAT, Start date 03/13/23 20:32:00 EDT, 03/13/23 20:32:00 EDT HYDROmorphone, 0.5 mg = 0.5 mL, Injection, IV Push, Once, Stop date 09/08/22 22:21:00 EDT, STAT, Start date 09/08/22 22:21:00 EDT, 09/08/22 22:21:00 EDT [facility]02-21-2023 Hospital Discharge instructions Patient Education 08/18/2022 23:13:17 [...] Treatment for this condition includes: Antibiotic medicine. Ystp-zah-xlkfjmi medicines to treat discomfort. Drinking enough water [...] Follow these instructions at home: Medicines Take rijg-coa-kgvbhno and prescription medicines only as told by [...] 03/25/2006 Document Revised: 06/02/2019 Document Reviewed: 12/23/2018 [employer] Patient Education 2020 [employer]. Follow Up Care 08/18/2022 18:58:43 With:SKYE JONES Address: [address] [place] [address] 6 [place] [address]- [phone] Business (1) When:Within 3 Day(s) [facility]02-20-2023 Evaluation + Plan noteExtracted from: Title:ED Note Author:Grey Putnam DO Date :08/18/22 Acute UTI (N39.0: Urinary tr act infection, site not specified) Orders: acetaminophen-oxycodone, 1 tab(s), Tab, Oral, Once, Stop date 08/18/22 22:40:00 EST, STAT, Start date 08/18/22 22:40:00 EST acetaminophen-oxycodone, 1 tab(s), Oral, q8hr, 8 tab(s), Refill(s) 0, [facility], 170.2, cm, 08/18/22 19:13:00 EST, [...] q8hr, # 12 tab(s), Refills(s) 0, Pharmacy: [facility], 170.2, cm, 08/18/22 19:13:00 EST, Height/Length Dosing, 110, kg, 08/18/22 19:13:00 EST, Weight Dosing Sodium Chloride 0.9% intravenous solution, 1,000 mL, Soln-IV, IV, Once, Stop date 08/18/22:23:00 EST, STAT, Start date 08/18/22 19:23:00 EST, mL/hr, Infuse over 61, minute(s) sulfamethoxazole-trimethoprim, 1 tab(s), Tab, Oral, Once, Stop date 08/18/22 22:40:00 EST, STAT, Start date 08/18/22 22:40:00 EST sulfamethoxazole-trimethoprim, 1 tab(s), Oral, BID for 7 day(s), 14 tab(s), Refill(s) 0, [facility], 170.2, cm, 08/18/22 19:13:00 EST, Height/Length Dosing, 110, kg, 08/18/22:13:00 EST, Weight Dosing Automated Diff Basic Metabolic Panel CBC w/ Auto Diff CT Abdomen/Pelvis w/o Contrast eGFR Hepatic Function Panel Lipase Level Saline Lock Insert UA With Cult Reflex Urine Culture Diagnostic Tests Pending * Urine Culture 08/18/22 [facility]02-11-2023 Hospital Discharge instructions Patient Education [...] Treatment for this condition includes: Antibiotic medicine. Fmeo-qof-urarudd medicines to treat discomfort. Drinking enough water [...] Follow these instructions at home: Medicines Take ivox-gti-rudrtse and prescription medicines only as told by [...] 03/25/2006 Document Revised: 06/02/2019 Document Reviewed: 12/23/2018 [employer] Patient Education 2020 [employer]. 08/08/2022 22:25:08 Flank Pain, Adult Flank Pain, [...] told by your health care provider. Take jnvi-mhy-zvoojkl and prescription medicines only as told by [...] 08/06/2006 Document Revised: 05/28/2018 Document Reviewed: 08/28/2017 [employer] Patient Education 2020 [employer]. Follow Up Care 08/08/2022 19:26:09 With:SKYE JONES Address: [address] [place] [phone] Business (1) When:Within 3 Day(s) [facility]02-10-2023 Evaluation + Plan noteExtracted from: Title:ED Note Author:Grey Putnam DO Date :08/08/22 Acute UTI (N39.0: Urinary tr act infection, site not specified) Flank pain (R10.9: Unspecified abdominal pain) Orders: cephalexin, 500 mg = 1 cap(s), Oral, q12hr, X 7 day(s), # 14 cap(s), Refills(s) 0, Pharmacy: [facility], 170, cm, 08/08/22 19:35:00 EST, [...] q8hr, # 12 tab(s), Refills(s) 0, Pharmacy: [facility], 170, cm, 08/08/22 19:35:00 EST, [...] Culture Charcoal 08/08/22 * Urine Culture 08/08/22 [facility]02-06-2023 History of Present illness Narrative* [...] Syringe 1 vitamin D (ERGOCALCIFEROL) 1.25 MG (16789 UT) CAPS capsule Take 1 capsule by [...] nightly) 6 each 3 Continuous Blood Gluc Furnace Repair Mechanic (FREESTYLE MYRON 14 DAY READER) POOL 1 [...] Self- Management Education Record Participant Name: Gisel Carlton Referring Provider: PEE Uribe CNP Assessment/Evaluation [...] Current recommendations for being active by the [place] Diabetes Association reviewed. [] Discussed what patient [...] [x] Proficient in using meter - uses Packet Designstyle Myron 2 Having trouble since putting on [...] [] Discussed blood glucose monitoring to include: [place] Diabetes Association goals for blood glucose, effects [...] disposal of used strips and lancets, running air quality instrument specialist checks on the test strips using control [...] meter - setting date and time []Running air quality instrument specialist checks on the test strips using control [...] of fingers, not pads? []Yes []No Using air quality instrument specialist checks. []Yes []No Logging resuts? []Yes []No [...] identifying solutions and taking action. Assessment Ratin 08/04/23 Discussed willingness to change behaviors and setting [...] the relationship of blood glucose levels to alf complications of diabetes. Identify preventative measures & [...] with current health maintenance recommendations from the [place] Diabetes Association to include Eye, dental exams, [...] on potentially lowering dose of Tresbia. Kelly Smith, RN Percentage of goal completed from Initial [...] managing your diabetes - Packet of Handouts [facility] [] Self-Management Class 2 - Meal [...] Comments No Show Dates Assessment 08/04/22 Kelly Smith, RN [phone] 08/04/22 [x] Patient has no barriers to [...] Healthy Coping [] Emotional Support [] National Atkins on Mental Illness (LARISSA) - (Depression, bipolar and other support) 503.384.7190; www.larissa.org [] Depression & Bipolar Support Atkins [phone]; www.dbsalliance.org [] National Suicide Prevention Qyvlmqiv-107-400-8255 [] Anxiety & Depression Association of [place] Find local support groups by zip code at www.adaaCompuMed National phone number [phone] [] Counseling: [] Diabetes Support Groups [] New Weigh of Life at [facility] Thursday of the month at 10:00 uk-[phone] [] On-line support groups (CaseTrek, NetVision, ADA) [] [facility] [] I would be interested in a support group at [facility] if offered [] Stress Relief [] Yoga Class [] Start a journal [] Relaxation techniques [] Vsumsvx1Xfoyi- Lazaro [] SparkQuote (Free, inspiring quote of the day) [] Healthy Eating [] Weight Management & Carb Counting [] Weight Sjkxuoeq-[phone]; www.weightNxtGen Data Center & Cloud Services.[place] [] Over Eaters Dzvvwrbvc-[phone] (support group)- www.oa.org [] Follow up individual appointment with [facility] dietitian - call [phone] [] Food Tracking Apps - My Fitness Pal, Calorie Lamont [] ADA website - Recipes & Nutrition info, weight loss [] Impakt Protectiveplate.[place] [] Monitoring [] Glucose William (Free, tracks blood glucose, graphs) [] MySugrApp (Basic and Pro patterns) [] Diabetes:M - logbook [] Being Active [] 24 Hour Vvfacaz-[phone]; www.Spreetales [] Planet Fitness Zappedy.Christophe & Co [] [facility] - [phone] [] Fit Walks: FREE Splash Zone in [place] on Mondays 5:30 pm [facility] in [place] (for weather) [facility] on at 5:30 en-[phone] [] Olga Jose walking videos (Some free on youtube) [] Other Exercise Plan/Facility [] Apps Couch to 5K [] Reducing Risk [] Make a sick day toolkit [] Schedule appointments for eye, dentist [] Stop smoking [] Monitor Blood pressure [] Get vaccinated [] Other: [] Taking Medications [] Lazaro: MyTherapyApp - helps track meds [] Seek financial help with medications: [] Csm-iellasj-puylnp-pemv-ebkrec-ejwduxgy-01-24-19.pdf https://www.diabeteseducator.org/docs/default-source/practice/educator-tools/non -sznvcfl-nzsrmz-qucz-skbtjt-trfmqjxo-9-29-19.pdf?sfvrsn=2 [] Insulin cost saving resource https://www.diabeteseducator.org/docs/default-source/practice/educator-tools/ins soye-iwuy-durrkv-qyjiwbccs-9-6-19.pdf?sfvrsn=4 [] GetInsulin.org [] The Affordable insulin Project http://affordableinsulinproject.org/ [] Diabetes Websites - Use as a resource for additional information [] www.diabetes.org [] Impakt Protective.[place]let [place] [] WWW.diabeteseducator.org Association of Diabetes Care & Education Specialists [] www.niddk.nih.gov/health-information/diabetes/overview [place] [facility] Health [] www.medicalert.org - offers emergency medical information service, including an ID bracelet/pendant (have to pay) [] Journals/Magazines [] Diabetes Forecast ; www.diabetesforecast.org [] Diabetes Self-Management ; www.diabetesseRobotoki [] Diabetes Health [phone]; www.diabeteshealth.[place] [] Other [] Health Program offered at place of employment [] [employer]'s Chronic Disease Management Program [] Follow up - Diabetes Education or Nutrition Therapy Annually (call in 1 year to set up apt) [] Join the Living with Type 2 Diabetes Program (FREE) www.diabetes.org/diabetes/type-2/uesozm-kiaf-lyfb-0-fgkvqctd-snpjztm or call 4-344-XINJTMPD [] Stop smoking - www.cancer.org/healthy/ovtw-bncz-dhvv-tobacco Post Education Referrals: [] [place] Tobacco Quit information sheet and 1800 QUIT NOW , [phone] [] Dental care [] Cardiology Clinical Nurse Specialist [] Loading Machine Adjuster [] Other Kelly Smith RN documented in this [facility] [employer] Work Phone: 1(598) 253-323301-20-2023 Hospital Discharge instructions Patient Education 07/17/2022 22:47:15 [...] Treatment for this condition includes: Antibiotic medicine. Jglf-qni-bdepohs medicines to treat discomfort. Drinking enough water [...] Follow these instructions at home: Medicines Take inlh-tse-knzaqgc and prescription medicines only as told by [...] 03/25/2006 Document Revised: 06/02/2019 Document Reviewed: 12/23/2018 [employer] Patient Education 2020 [employer] 07/17/2022 22:47:15 Sinus Tachycardia Sinus Tachycardia Sinus [...] the electrical activity of the heart. ?Ambulatory quality assurance monitor chassis. This records your heartbeats for 24 hours or more. You may be referred to a costume specialist (hospital insurance clerk). How is this treated? Treatment for this [...] to keep your urine pale yellow. Take shug-gqy-lhvlxgx and prescription medicines only as told by [...] 07/23/2005 Document Revised: 08/04/2018 Document Reviewed: 08/04/2018 [employer] Patient Education 2020 [employer]. 07/17/2022 22:47:15 Flank Pain, Adult Flank Pain, [...] told by your health care provider. Take bsck-mtr-bwfbqmm and prescription medicines only as told by [...] 08/06/2006 Document Revised: 05/28/2018 Document Reviewed: 08/28/2017 [employer] Patient Education CME. Follow Up Care 07/17/2022 19:37:47 With:Fei Peña Address: [address] [place] [id number] [phone] Business (1) When:07/20/2022 Comments:Follow up with your primary doctor for the flank pain. Follow-up with Dr. Peña for the fast heartrate. Return to the emergency room if your pain gets worse, chest pain, shortness of breath or any new symptoms. With:SKYE JONES Address: [address] [place] [address] [phone] Business (1) When:Within 3 Day(s) [facility]01-19-2023 Evaluation + Plan noteExtracted from: Title:ED Note Author:Shantell Rondon, Agatha Benavides te:07/17/22 1. Flank pain (R10.9: Unspec ified abdominal pain) 2. Sinus tachycardia (R00.0: Tachycardia, unspecified) 3. Urinary tract infection (N39.0: Urinary tract infection, site not specified) Orders: cephalexin, 500 mg = 1 cap(s), Oral, QID, X 7 day(s), # 28 cap(s), Refills(s) 0, Pharmacy: [id number], 170, cm, 07/17/22 19:43:00 EST, [...] nausea/vomiting, # 12 tab(s), Refills(s) 0, Pharmacy: [id number], 170, cm, 07/17/22 19:43:00 EST, [...] Diagnostic Tests Pending * Urine Culture 07/17/22 [facility]12-22-2022 Evaluation + Plan noteExtracted from: [...] Diagnostic Tests Pending * Urine Culture 06/18/22 [facility]12-22-2022 Hospital Discharge instructions Patient Education [...] Treatment for this condition includes: Antibiotic medicine. Msgf-ujm-tpxqfhg medicines to treat discomfort. Drinking enough water [...] Follow these instructions at home: Medicines Take iiir-wau-xpokhdh and prescription medicines only as told by [...] 03/25/2006 Document Revised: 06/02/2019 Document Reviewed: 12/23/2018 [employer] Patient Education 2020 [employer] Follow Up Care 06/18/2022 22:49:19 With:SKYE JONES Address: [address] [place] [address] [address] [place] [address] [phone] Business (1) When:06/22/2022 Comments:And follow-up with patient established urologist. [facility]11-13-2022 Hospital Discharge instructions Patient Education 05/11/2022 20:07:26 Shoulder Pain, Kcoy-rv-Yppw Shoulder Pain Many things can cause shoulder [...] to strengthen the arm. General instructions Take uqqd-wst-adwtrei and prescription medicines only as told by [...] 12/01/2008 Document Revised: 12/28/2018 Document Reviewed: 12/28/2018 [employer] Patient Education 2020 [employer]. 05/11/2022 20:07:26 Nausea and Vomiting, Adult, Qfop-ba-Vguq Nausea and Vomiting, Adult Nausea is feeling [...] fruit juice). ?Low-calorie sports drinks. Eat bland, jhla-ck-nspnof foods in small amounts as you are able, such as: ?Bananas. ?Applesauce. ?Rice. ?Low-fat (lean) meats. ?[place]. ?Crackers. Avoid drinking fluids that have a lot of sugar or caffeine in them. This includes energy drinks, sports drinks, and soda. Avoid alcohol. Avoid spicy or fatty foods. General instructions Take qjjj-zzj-qsfkyls and prescription medicines only as told by your doctor. Drink enough fluid to keep your pee (urine) pale yellow. Wash your hands often with soap and water. If you cannot use soap and water, use hand flight operations dispatch clerk. Make sure that all people in your [...] too much water in your body. Take wbuq-ute-uymuvtb and prescription medicines only as told by [...] 12/01/2008 Document Revised: 10/07/2019 Document Reviewed: 11/23/2018 [employer] Patient Education 2020 [employer]. Follow Up Care 05/11/2022 17:25:46 With:SKYE JONES Address: [address] [place] [phone] Business (1) When:05/14/2022 19:47:30 Comments:You can use the Zofran, Phenergan as prescribed as needed for nausea and vomiting. Please follow-upwith orthopedics for further evaluation management of your shoulder pain. Please return to the ED for any new or worsening symptoms. [facility]11-13-2022 Evaluation + Plan noteExtracted from: [...] 12 tab(s), Refills(s) 0, Pharmacy: [facility] #[id number], 170.2, cm, 05/11/22 17:35:00 EST, Height/Length Dosing, 107, kg, 05/11/22 17:35:00 EST, Weight Dosing promethazine, 25 mg = 1 mL, Injection, IntraMuscular, Once, Stop date 05/11/22 19:27:00 EST, STAT, Start date 05/11/22 19:27:00 EST, 05/11/22 19:27:00 EST promethazine, 25 mg = 1 supp, Rectal, q6hr, PRN Nausea/Vomiting, # 6 EA, Refills(s) 0, Pharmacy: [facility] #[id number], 170.2, cm, 05/11/22 17:35:00 EST, Height/Length Dosing, 107, kg, 05/11/22 17:35:00 EST, Weight Dosing [facility]10-28-2022 Hospital Discharge instructions Patient Education 04/25/2022 13:09:27 Post Op Patient Instructions - FT (CUSTOM) 04/25/2022 13:09:27 Shoulder Cryocuff Patient Instructions - FT (CUSTOM) 04/25/2022 10:45:45 Summer Watkins - After Your Shoulder Arthroscopy (Custom) [place], [place] [facility] AFTER YOUR SHOULDER ARTHROSCOPY [...] your appointment. Omi Watkins, DO [facility] [address] [place] [address] [phone] Reviewed: Follow Up Care 03/26/2022 10:03:33 With:Omi Watkins Address: [address] [place] [address]- Business (1) When:05/06/2022 08:45:00 Comments:Call for any problems.Keep scheduled appointment [facility]10-25-2022 Hospital Discharge instructions Patient Education [...] Follow these instructions at home: Medicines Take wroq-wua-bnxxsbp and prescription medicines only as told by [...] Watch your condition for any changes. Take lmqp-byw-xsrqqgc and prescription medicines only as told by [...] 03/25/2006 Document Revised: 10/24/2019 Document Reviewed: 10/24/2019 [employer] Patient Education 2020 [employer]. Follow Up Care 04/21/2022 21:20:04 With:SKYE JONES Address: [address] [place] [phone]- [phone] Business (1) When:Within 3 Day(s) [facility]10-24-2022 Evaluation + Plan noteExtracted from: [...] day(s), # 30 cap(s), Refills(s) 0, [facility]acy: [facility] #[id number], 170.2, cm, 04/21/22 21:37:00 EDT, Height/Length Dosing, [...] nausea/vomiting, # 20 tab(s), Refills(s) 0, Pharmacy: [facility] #[id number], 170.2, cm, 04/21/22 21:37:00 EDT, Height/Length Dosing, [...] Appointments Appointment Date:04/25/2022 10:30:00 AM Scheduled Provider: Location:[facility] Surgical Services Appointment Type:Surgery [facility]10-09-2022 Hospital Discharge instructions Additional Instructions Only use the arm sling as absolutely necessary to help support your shoulder, did not use it all the time as it can cause worsening symptoms Call your orthopedic doctor or family doctor tomorrow for a follow-up appointment this week do the shoulder exercises and stretches that are written below Continue your pain regimen and only use the O[place] as needed and do not drive or operate heavy machinery while [facility] Work Phone: [phone]) 969-181309-14-2022 Evaluation note* Encounter Date Diagnosis Assessment Notes [...] no improvement in 2 to 3 days. [facility] Other 09-11-2022 Hospital Discharge instructions Patient Education [...] Treatment for this condition includes: Antibiotic medicine. Ahwu-ymf-nmlvvcz medicines to treat discomfort. Drinking enough water [...] Follow these instructions at home: Medicines Take vuis-nrj-nhgyysz and prescription medicines only as told by [...] 03/25/2006 Document Revised: 06/02/2019 Document Reviewed: 12/23/2018 [employer] Patient Education 2020 [employer]. 03/08/2022 22:53:41 Flank Pain, Adult Flank Pain, [...] told by your health care provider. Take evan-kka-cnityhz and prescription medicines only as told by [...] 08/06/2006 Document Revised: 05/28/2018 Document Reviewed: 08/28/2017 [employer] Patient Education 2020 [employer]. Follow Up Care 03/08/2022 19:48:00 With:SKYE JONES Address: [address] [place] [address] [address] [place] [address] [phone] Business (1) When:03/11/2022 Comments:Return to the emergency room if your pain gets worse or any new symptoms [facility]09-10-2022 Evaluation + Plan note Diagnostic Tests Pending * Urine Culture 03/08/22 [facility]06-10-2022 Hospital course Narrative* Jameel Cadena MD - 12/06/2021 9:33 AM EDT DISCHARGE SUMMARY Patient: Gisel Carlton Date of : 1975 Site: [facility] Provider: Skye Jones CNP Admit Date: [...] Physician(s) Family Provider: Skye Jones CNP, Address: [address] [place] [address] Follow Up: Skye Jones CNP [address] [place] [address] Follow up in 1 week(s) Additional Information: [...] on 12/06/21, 9:33 AM documented in this [id number] Consult note* Rachel Gann PT - 12/05/2021 3:06 PM EDT Physical Therapy PHYSICAL THERAPY SCREEN Patient was screened by Physical Therapy. Upon review of the chart and discussion with the patient,no skilled Physical Therapy intervention is indicated. Patient has been up independently in room without AD. She has no further needs for PT at this time. Order discontinued at this time. [id number] Consult note* Rachel Gann PT - 12/05/2021 3:06 PM EDT Physical Therapy PHYSICAL THERAPY SCREEN Patient was screened by Physical Therapy. Upon review of the chart and discussion with the patient,no skilled Physical Therapy intervention is indicated. Patient has been up independently in room without AD. She has no further needs for PT at this time. Order discontinued at this time. documented in this [id number] Note* ED Attestation Note - Cristi Feng [...] any errors, but occasionally words are mis-transcribed.) [facility] Work Phone: 1(693) 840-319006-09-2022 Miscellaneous Notes* ED Attestation Note - Cristi [...] Thank you, Jazlyn Norwood RN, BSN Clinical Head Correction Officer [phone] After business hours you may contact Linda Salgado at [phone] (Weekdays until 10 PM and weekends 8 [...] normal T Waves: T waves normal normal ID interval normal QRS interval QT Interval: 509 Other findings: prolonged QTc interval Clinical impression: non-specific ECG documented in this [id number] Note* CDI Query - Jazlyn Norwood RN [...] Thank you, Jazlyn Norwood RN, BSN Clinical Head Correction Officer [phone] After business hours you may contact Linda Saglado at [phone] (Weekdays until 10 PM and weekends 8 AM - 10 PM) [id number] History of Present illness Narrative* Jameel Cadena MD - 12/05/2021 9:45 AM EDT [facility] PROGRESS NOTE Assessment and Plan Gisel Carlton [...] IV fluids as above documented in this [id number] Note* Plan of Care - Quincy Johnson [...] of comfort function goal Outcome: Partially Met [id number] History and physical note* Roshan Espino MD - 12/04/2021 4:20 AM EDT [facility] HISTORY AND PHYSICAL Patient Name: Gisel Carlton : 1975 MR #: [id number] Admit Date: 12/03/2021 Physicians: Skye Jones CNP [...] 12/04/21 4:47 AM Transcriptions 12/04/21 4:47 AM [id number] History and physical note* Roshan Espino MD - 12/04/2021 4:20 AM EDT [facility] HISTORY AND PHYSICAL Patient Name: Gisel Carlton : 1975 MR #: [id number] Admit Date: 12/03/2021 Physicians: Skye Jones CNP [...] Transcriptions 12/04/21 4:47 AM documented in this [id number] Note* ED Procedure Note - Cristi Feng [...] normal T Waves: T waves normal normal ID interval normal QRS interval QT Interval: 509 Other findings: prolonged QTc interval Clinical impression: non-specific ECG [id number] Emergency department Note* Erika Lew RN - 12/03/2021 11:51 PM EDT Manual BP 92/62 measured at this time. [employer]ER MET[employer] Shruthi aware. [id number] Emergency department Note* Erika Lew RN - 12/03/2021 11:51 PM EDT Manual BP 92/62 measured at this time. [employer] P[employer] MAKER METAL Shruthi aware. * Sybil Wilson RN - 12/03/2021 11:17 PM EDT THIS RN ATTEMPTED IV STARTX2, VEIN BLEW; UNSUCCESSFUL * Erika Lew RN - 12/03/2021 11:13 PM EDT BP monitoring increased to q15min for hypotension. Secondary RN bedside for IV attempt, this RN unsuccessful x2. * Shruthi Christine CNP - 12/03/2021 11:05 PM EDT ED PROVIDER NOTE [facility] EMERGENCY DEPARTMENT NAME: Gisel Carlton AGE: 46 y.o. : 1975 VISIT DATE: 12/03/2021 CSN: [id number] PCP: Skye Jones CNP Chief Complaint Patient presents with Flank Pain Patient presents to ED with complaints of right flank pain and nausea and 4 episodes of vomiting, onset 2 hours RANGE MASTER. History of previous kidney stones with surgery and subsequent stent placement, reports feels similar. No treatment RANGE MASTER. Past Medical History: Diagnosis Date Diabetes mellitus [...] Yellow Clarity, Urine Cloudy (A) Clear Specific Dent 1.045 (H) 1.005 - 1.025 pH, Urine [...] THE LAST TWO HOURS documented in this [id number] Emergency department Note* Sybil Wilson RN - 12/03/2021 11:17 PM EDT THIS RN ATTEMPTED IV STARTX2, VEIN BLEW; UNSUCCESSFUL [id number] Emergency department Note* Erika Lew RN - 12/03/2021 11:13 PM EDT BP monitoring increased to q15min for hypotension. Secondary RN bedside for IV attempt, this RN unsuccessful x2. [id number] Physician Emergency department Note* Shruthi Christine CNP - 12/03/2021 11:05 PM EDT ED PROVIDER NOTE [facility] EMERGENCY DEPARTMENT NAME: Gisel Carlton AGE: 46 y.o. : 1975 VISIT DATE: 12/03/2021 CSN: [id number] PCP: Skye Jones CNP Chief Complaint Patient presents with Flank Pain Patient presents to ED with complaints of right flank pain and nausea and 4 episodes of vomiting, onset 2 hours RANGE MASTER. History of previous kidney stones with surgery and subsequent stent placement, reports feels similar. No treatment RANGE MASTER. Past Medical History: Diagnosis Date Diabetes mellitus [...] Yellow Clarity, Urine Cloudy (A) Clear Specific Dent 1.045 (H) 1.005 - 1.025 pH, Urine [...] been specified. Shruthi Christine CNP 12/04/21 0337 [facility] Work Phone: 1(265) 462-124606-07-2022 Emergency department Triage note* Aleena Light RN - 12/03/2021 10:02 PM EDT PT C/O RIGHT SIDED FLANK PAIN THAT STARTED 2 HRS AGO, STATES SHE HAS VOMITED FOUR TIMES IN THE LAST TWO HOURS [id number] History of Present illness Narrative* MONIKA Díaz - 06/25/2021 8:30 AM EST URGENT CARE eNCOUnter CHIEF COMPLAINT Cough (x 5days daughter covid positive (no vac)), Nasal Congestion, Sinus Congestion, Loss Of Smell, and Sore Throat [facility] Gisel Carlton is a 46 y.o. female [...] PO Daily April 23, 2020 7:41pm 04-23-2020 [facility] ([id number]) (Patient not taking: Reportedon 06/25/2021) dicyclomine 20 MG tablet Take 1 tablet by mouth 3 times daily as needed for Abdominal Spasms. 8 tablet 0 doxycycline hyclate 100 MG capsule Take 1 capsule by mouth 2 times daily for 10 days. 20 capsule 0 ergocalciferol 1.25 MG (29921 UT) capsule 1,250 mcg. (Patient not taking: [...] not taking: Reported on 06/25/2021) polymyxin b-trimethoprim 57073-5.1 UNIT/ML-% Solution ophthalmic solution Place 1 drop [...] plan. MONIKA Díaz 06/25/2021 [facility] [employer] [id number] Instructions* Patient Instructions* MONIKA Díaz - 06/25/2021 [...] care for yourself at home? Take an jxyf-xlj-arleubj pain medicine, such as acetaminophen (Tylenol), ibuprofen (Advil, Motrin),or naproxen (Aleve). Read and follow all instructions on the label. If the doctor prescribed antibiotics, take them as directed. Do not stop taking them just because you feel better. You need to take the full course of antibiotics. Be careful when taking ovno-vce-uizvuzv cold or flu medicines and Tylenol at [...] Where can you learn more? Go to http://www.[employer].edu/patiented. Enter I933 in the search box to learn more about 'Sinusitis: Care Instructions.' Interested in seeing a video go to https://[employer].edu/videolibrary to see all video content. Current as of: March 06, 2021 Content Version: 13.1 [employer]. Care instructions adapted under license by your healthcare professional. If you have questions about a medical condition or this instruction, always ask your healthcare professional. [employer] disclaims any warranty or liability for your [...] to verify the correct patient, procedure, equipment, product support sales representative and site/side marked as required. Timeout performed [...] with a KUB x-ray. documented in this [id number] History of Present illness Narrative* Holly Membreno [...] 02/02/2021 8:39 AM EDT Malathi Olivas MD [facility] Hospitalists PROGRESS NOTE Patient Name: Gisel [...] A1c 12.5% and seen by endocrine at [facility]. -Per DC summary, Lantus 22 units nightly, lispro 12 units 3 times daily AC. Metformin was discontinued. Patient states the weapons officer told her to take 30 units of [...] 02/01/2021 9:14 AM EDT Marce Tillman CNP [facility] Hospitalists PROGRESS NOTE Patient Name: Gisel [...] A1c 12.5% and seen by endocrine at [facility]. -Per DC summary, Lantus 22 units nightly, lispro 12 units 3 times daily AC. Metformin was discontinued. Patient states the weapons officer told her to take 30 units of [...] Family Time Spent/CCM Time: documented in this [id number] Hospital course Narrative* Malathi Olivas MD - 02/02/2021 2:44 PM EDT Malathi Olivas MD [facility] Hospitalists DISCHARGE SUMMARY Gisel Carlton Admit Date: 01/31/2021 Discharge Date: 02/02/21 Primary Care Physician: Physician No Clinical Summary Gisel Carlton is a 45 [...] A1c 12.5% and seen by endocrine at [facility]. - resume home insulin regimen 3 HLD [...] labs, testing and follow-up. documented in this [id number] Consult note* Amanda Fritz CNP - 02/01/2021 10:53 AM EDT Associated Order(s): IP CONSULT TO UROLOGY CONSULT NOTE Patient Name: Gisel Carlton Admit Date: [id number] MR #: [id number] : 1975 Assessment and Plan: Right flank [...] furtherquestions please don't hesitate to call. Amanda Fritz CNP [facility] Urology (o) [phone] Chief Complaint/Reason for Visit: Chief Complaint Patient [...] LASER; Surgeon: Tim Roper MD; Location: [place]; Service: Urology HERNIA REPAIR HYSTERECTOMY LEG SURGERY [...] Social Gatherings with Friends and Family: Attends Hinduism Services: Active Member of Clubs or Organizations: [...] Results from last 7 days Lab Units 02/01/21 0523 01/31/21 2236 01/30/21 0317 01/29/21 0343 SODIUM mmol/L 139 136 137 136 POTASSIUM mmol/L 3.7 3.8 4.0 4.0 CHLORIDE mmol/L 105 102 106 106 BUN mg/dL 13 15 12 15 CREATININE mg/dL 0.49 0.59 0.60 0.63 GLUCOSE mg/dL 263* 346* 282* 267* CALCIUM mg/dL 9.1 -- 8.3* 8.5 Results from last 7 days Lab Units 02/01/21 0523 01/31/21 2236 01/30/21 0317 01/29/21 0343 WBC K/mcL 5.18 6.04 4.53 4.76 [...] can follow up with next Thursday in [place] for stent removal in the office. Pt suitable for discharge home once pain control improves. If urine culture returns positive would recommend discharge with antibiotics until the stent is removed. Please call with questions. Ras Haines [facility] documented in this [id number] History and physical note* Rufina Eugene DO - 02/01/2021 5:07 AM EDT Rufina Eugene DO [facility] Hospitalists HISTORY AND PHYSICAL Patient Name:Gisel [...] A1c 12.5% and seen by endocrine at [facility]. -Per DC summary, Lantus 22 units nightly, lispro 12 units 3 times daily AC. Metformin was discontinued. Patient states the weapons officer told her to take 30 units of [...] was evaluated by endocrinology and seen by peer educator. She was started on Lantus 22 [...] HOLMIUM LASER; Surgeon: Tim Roper MD; Location: [facility]; Service: Urology HERNIA REPAIR HYSTERECTOMY LEG SURGERY [...] Social Gatherings with Friends and Family: Attends Hinduism Services: Active Member of Clubs or Organizations: [...] [] Family Time Spent: documented in this [id number] Miscellaneous Notes* Quick Note - Carmelita Martinez [...] the patient. I discussed the patient with ORGAN PIPE MAKER MET[employer]/PA. I agree with the ORGAN PIPE MAKER MET[employer]/PA treatment plan. I agree with the ORGAN PIPE MAKER MET[employer]/PA plan of care. I agree with the ORGAN PIPE MAKER METAL/PA dispo as documented. 45-year old female presenting [...] pre-hypertension or hypertension. . documented in this [id number] Emergency department Note* Parker Benítez - 02/01/2021 [...] Social Gatherings with Friends and Family: Attends Hinduism Services: Active Member of Clubs or Organizations: [...] Linda (*) Clarity, Urine Cloudy (*) Specific Dent 1.029 (*) Protein, Urine 30 (*) Glucose, [...] Procedure Abnormality Status --------- ------ CBC Auto Differential[[id number]] Final result Please view results for these [...] then ultimately she was admitted to the [facility] observation unit for monitoring this evening. [...] nausea, unspecified vomiting type Fei Jones PA-C 02/01/21 0223 * Jeni Cowan RN - 01/31/2021 9:50 PM EDT Patient ambulated to triage desk wearing surgical mask. Patient stated she was just released from the hospital today and had a kidney stent placed for a kidney stone. Now she has a fever and is urinating only blood. documented in this [id number] Emergency department Note* Ludin Thomas DO - 11/19/2020 8:12 PM EDT Emergency Department Report [facility] EMERGENCY MEDICINE Service Date:.11/19/20 PCP: No primary [...] have a urologist. She lives in the [facility] at this time, she is currently in [...] PO Daily April 23, 2020 7:41pm 04-23-2020 [facility] ([id number]) ERGOCALCIFEROL 1.25 MG (39454 UT) CAPSULE 1,250 mcg. INSULIN DEGLUDEC 200 [...] Social Gatherings with Friends and Family: Attends Hinduism Services: Active Member of Clubs or Organizations: [...] Ludin Thomas DO 11/19/202158 [facility] Discharge instructions* Instructions* Ludin Thomas DO - 11/19/2020 Medication has been prescribed to you to use if needed he did have a kidney stone. Return to the ERif intractable bowel pain, intractable nausea and vomiting, or any other acute concerns. * Attachments The following attachments cannot be sent through Care Everywhere. * Nausea and Vomiting (Burkinan) * Kidney Stone (Burkinan) * Hematuria (Burkinan) * Abdominal Pain with Follow Up in 24 Hours ([facility]) (Burkinan) documented in this [facility]05-10-2021 NotePROCEDURE: [...] process. Nonspecific nonobstructive bowel gas pattern as described.[facility]04-22-2021 Emergency department Note* Maria Del Carmen [...] meds, states meds have not helped with MENJIVAR and will not be able to lay [...] Patrick PA-C - 10/18/2020 8:03 PM EDT [facility] ED Note: NAME: Gisel Carlton 45 y.o. CSN: [id number] PCP: Physician No History: Chief Complaint: Chest [...] physician as she recently moved here from [place]. Patient states that she has the sharp [...] back in April at a hospital near [place]. She states she has had nausea with [...] file Gets together: Not on file Attends presybeterian service: Not on file Active member of [...] Temp src Pulse Resp SpO2 Height Weight 10/18/20 1955 136/65 (!) 108 18 96 % 10/18/20 [...] at the following links: For Healthcare Providers: https://www.fda.gov/media/611098/download For Patients: https://www.fda.gov/media/565448/download HEPATIC FUNCTION PANEL - Normal LIPASE - [...] Procedure Abnormality Status --------- ------ CBC Auto Differential[[id number]] Final result Please view results for these tests on the individual orders. TROPONIN CBC WITH AUTO DIFFERENTIAL XR Chest AP/PA and LAT Final Result Lungs are clear. No acute cardiopulmonary disease. Workstation ID: [id number] CT Pulmonary Arteries (Results Pending) EKG: Sinus tachycardia RATE: 114 AXIS: Normal axis INTERVALS: ID interval of 120 ms, QRS duration of [...] has she recently moved here from [place] [facility] She did take Tylenol at 5:00. [...] 350. Patientwas recently given to prescriptions for Odon by to various providers at the beginning of the month. I do not feel this patient requires narcotic prescriptions at this time. She was given IV fluids, Benadryl and Reglan. She was offered Tylenol for pain. I was advised by the nursing staff the patient states that she wants to sign out AGAINST MEDICAL ADVICE at this time. Patient was made aware thatidris could possibly have a blood clot in her lungs and she risks of or permanent disability bysigning out. Patient did sign AMA and left. Condition was stable. This note was completed using a [employer] voice recognition dictation program. While accurate for the most part there may be some inaccuracies from the spoken word. Clinical Impression: 1. Chest pain, unspecified type 2. Elevated d-dimer 3. Left against medical advice Disposition: Patient is being Other Disposition: left AMA Vesna Patrick Physicians Immigration Patrol Inspector [facility] Emergency Department Vesna Patrick PA-C 10/18/202126 [...] of arrival: Comments: Second documented in this [id number] Hospital Discharge instructions * Instructions* Vesna Patirck PA-C - 10/18/2020 You understand the risk [...] sent through Care Everywhere. * Chest Pain (Burkinan) documented in this [id number] Emergency department Note* Sybil Wilson RN - 10/16/2020 9:57 PM EDT PT PLACED ON 2LPM VIA [place] FOR STATS 89% ON ROOM AIR, NOW [facility] MCDUFFIE TRANSPORTING PT TO CT * Sybil Wilson RN - 10/16/2020 9:19 PM EDT PT CALL LIGHT ANSWERED, PT STATES HER HEADACHE ISN'T ANY BETTER, BUT DOES STATE NO FURTHER NAUSEA, REGLAN EFFECTIVE FOR THAT. * Sybil Wilson RN - 10/16/2020 8:10 PM EDT THIS RN UNSUCCESSFUL WITH IV AND BLOOD DRAW XRAY NOW CARTSIDE * Sybil Wilson RN - 10/16/2020 7:52 PM EDT PT STATES DIZZINESS STARTED JUST A FEW HOURS AGO , PT STATES I PASSED OUT A FEW TIMES, I WOKE UP THREE TIMES I WAS ON THE FLOOR PT DENIES HEAD INJURY BUT STATES NECK PAIN AND BACK PAIN PT STATES NOW WITH CHEST PAIN * Demario Wakefield Yomaira - 10/16/2020 7:49 PM EDT Bed: 11 Expected date: Expected time: Means of arrival: Comments: DEBBIE documented in this [id number] Miscellaneous Notes* Telephone Encounter - Esmer Dickey LPN - 10/16/2014 5:57 PM EDT Spoke with M.Tyra regarding pathology report. We will obtain celiac [...] specific inflamation in duodenum documented in this encounterRound Hill ClinicDischar summary Author Maxim Pinto [facility] February 01, 2023 11:12am Note Date/Time February 01, 2023 11: 10am 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 [employer] with her last date of employment being [...] No Activity Restrictions Instructions: Depression, Adult (DC), [facility] Health [place] Instructions Prescriptions: New venlafaxine [...] levothyroxine 50 mcg Tablet 50 mcg PO DAILY.30 Qty: 90 0RF metoclopramide HCl 5 mg [...] (3 mL) insulin pen See Protocol [facility] Protocol: Corrective Scale #2 Condition: 150-199 mg/dL [...] 15 Days Qty: 15 1RF Follow Up: [facility] [Outside] - 02/02/23 10:15 am (You have a follow up appointment with [facility] on Thursday, February 02, 2023 at 10:15am. This will be a phone call appointment with a pillowcase cutter, please have your phone available around this time. At this time further appointments will be made.) [facility] Hotline [Outside] Skye Jones APRN, ORGAN PIPE MAKER METAL-C [Primary Care Provider] - (Contact your primary careprovider with any medical needs. ) Documented By: Maxim Pinto MD 02/01/23 1108 Signed By: <Electronically signed by Maxim Pinto MD> 02/01/23 1112 [facility] Work Phone: Evaluation + Plan note Future Appointments Appointment Date:04/25/2022 04:15:00 PM Scheduled Provider: Location:[facility]* Diagnosis Chronic abdominal pain- Primary Abdominal pain, unspecified site Hyperglycemia Other abnormal glucose Acute intractable headache, unspecified headache type documented in this encounter [facility] note* Diagnosis Chest pain, unspecified type- Primary Elevated d-dimer Left against medical advice documented in this encounter [facility] note* Diagnosis Celiac disease- Primary documented in this encounter [facility] note* Diagnosis Renal colic on right side- Primary Renal colic Upper abdominal pain Abdominal pain, other specified site Hematuria, unspecified type Nausea and vomiting, intractability of vomiting not specified, unspecified vomiting type documented in this encounter [facility] note* Diagnosis Pyelonephritis- Primary Pyelonephritis, unspecified Flank pain Abdominal pain, unspecified site documented in this encounter [facility] Phone: [email or web address] note* Diagnosis Acute upper respiratory infection- Primary Acute upper respiratory infections of unspecified site documented in this encounter [facility] note* Diagnosis Hematuria- Primary Hematuria, unspecified Flank pain Abdominal pain, unspecified site Acute UTI Urinary tract infection, site not specified Non-intractable vomiting with nausea, unspecified vomiting type documented in this encounter [facility] note* Diagnosis Kidney stone- Primary Calculus of kidney documented in this encounter [facility] note* Diagnosis Right flank pain- Primary Abdominal pain, unspecified site Acute cystitis with hematuria Acute cystitis documented in this encounter [facility] Phone: [email or web address] note* Diagnosis Encounter for screening for COVID-19- Primary Acute maxillary sinusitis, recurrence not specified documented in this encounter [facility] note* Diagnosis Flank pain- Primary Abdominal pain, unspecified site Kidney stone Calculus of kidney Acute pyelonephritis Acute pyelonephritis without lesion of renal medullary necrosis documented in this encounter [facility] Phone: evaluation note* Diagnosis Drug-seeking behavior- Primary Other, mixed, or unspecified nondependent drug abuse, unspecified Right flank pain Abdominal pain, unspecified site documented in this encounter [facility] Phone: evaluation note* Diagnosis Right flank pain- Primary Abdominal pain, unspecified site documented in this encounter [facility] Phone: evaluation note* Diagnosis Cervical radiculopathy Brachial neuritis or radiculitis nos Cervical spondylosis without myelopathy documented in this encounter [facility] Phone: evaluation note* Diagnosis Hypotension, unspecified hypotension type Right flank pain Abdominal pain, unspecified site Nausea and vomiting, unspecified vomiting type 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) Prolonged QT interval Nonspecific abnormal electrocardiogram (ECG) (EKG) documented in this [facility] noteNo assessment information [facility] Work Phone: evaluation note* Diagnosis Right flank pain- Primary Abdominal pain, unspecified site Nausea and vomiting, unspecified vomiting type documented in this encounter [facility] Phone: evaluation note* Diagnosis Flank pain- Primary Abdominal pain, unspecified site documented in this encounter [facility] Phone: evaluation note* Diagnosis Right flank pain- Primary Abdominal pain, unspecified site Hematuria, unspecified type Renal colic documented in this encounter [facility] Phone: [email or web address] note* Diagnosis Generalized abdominal pain- Primary Abdominal pain, generalized Anxiety state Anxiety state, unspecified documented in this encounter [facility] Phone: [email or web address] note* General: Patient is a 47yo [place] [...] daily living and necessary medical care recommendations. 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 acute Diabetes mellitus acute Hypertension acute Shoulder pain, right acute Suicidal ideation acute UTI (urinary tract infection) acute [facility] Work Phone: Evaluation note* Diagnosis Onset Date [...] Hypothyroid acute Major depressive disorder, recurrent acute [facility] Work Phone: Evaluation note* Diagnosis Onset Date [...] disorder, recurrent acute Right flank pain acute [facility] Work Phone: Evaluation note* Diagnosis Onset Date [...] Right flank pain acute Suicidal ideation acute [facility] Work Phone: Evaluation note* Diagnosis Onset Date Resolution Status Major depressive disorder, recurrent acute Suicidal ideation acute [facility] Work Phone: Evaluation note* Diagnosis Cervical stenosis of spine- Primary Spinal stenosis in cervical region Cervical stenosis of spine Spinal stenosis in cervical region Pain Generalized pain Cervical spinal stenosis Spinal stenosis in cervical region documented in this encounter [facility] note* Diagnosis Postoperative hematoma of musculoskeletal structure [...] acute postoperative pain documented in this encounter [facility] note* Diagnosis Onset Date Resolution Status Major depressive disorder, recurrent acute Suicidal ideation resolved [facility] Work Phone: History and physical note Author Braulio argueta [facility] January 29, 2023 2:12pm Note Date/Time January 29, 2023 2:[address] 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 of employment being [...] Total Protein 7.3 Albumin 4.0 Urine Color [place] A Urine Appearance Cloudy A Urine pH 6.5 Ur Specific Dent 1.023 Urine Protein Trace H Urine Glucose [...] signed by Braulio Dukes MD> 01/29/23 1412 [facility] Work Phone: Hisykad general Narrative - Reported* Type Description Date Medical History Kidney Stones Medical History Diabetes Type II Medical History High Cholesterol Medical History GERD Medical History Tachycardia Surgical History Hysterectomy Surgical History Gallbladder Surgical History Lithotripsy Surgical History Broken right leg Surgical History Bilateral Carpal Tunnel Release Hospitalization History Tachycarida 2012 Hospitalization History Pneumonia as child Hospitalization History See surgical hx Vizibility Other Hiscrmd general Narrative - Reported* Type Description Date [...] surgical hx Hospitalization History headaches/vision changes 02/2023 Vizibility Other Hospital course Narrative No data available for this section [facility]* Instructions* Esmer Tamayo PA-C - 10/17/2020 Connecting with a Primary Care Provider or Family Doctor is important for your continued health. Please visit [email or web address] and search for a Primary Care provider near your address. Many offer online scheduling to help connect you to a provider. Please confirm any appointment with the office. You may also call [phone], or , choose option 1 and speak to our statement services representative to schedule with a provider. [facility] (Open Access Clinic) - the providers at this clinic will also be able to help you connect to a new Primary Care Provider. [address] [place] [address], [address] Thursday through Thursday 9am to 7pm * Attachments The following attachments cannot be sent through Care Everywhere. * Headache (Burkinan) * Abdominal Pain (Burkinan) * Hyperglycemia: General Info (Burkinan) documented [facility] this [facility]* Attachments The following attachments cannot be sent through Care Everywhere. * Flank Pain (Burkinan) * Pyelonephritis (Burkinan) documented in this [facility] [employer] Phone: Hospital Discharge instructions* Attachments The following attachments cannot be sent through Care Everywhere. * URI (Upper Respiratory Infection) (Burkinan) documented [facility] this [facility]* Attachments The following attachments cannot be sent through Care Everywhere. * UTI (Urinary Tract Infection): Female (Burkinan) * Flank Pain (Burkinan) [facility] this [facility] Phone: Hospital Discharge instructions* Attachments The following attachments cannot be sent through Care Everywhere. * Flank Pain (Burkinan) * Pyelonephritis (Burkinan) documented in this [facility] Phone: Hospital Discharge instructions* Attachments The following attachments cannot be sent through Care Everywhere. * Flank Pain (Burkinan) documented in this [facility] Phone: Hospital Discharge instructions* Attachments The following attachments cannot be sent through Care Everywhere. * Abdominal Pain (Burkinan) documented in this [facility] Dis[facility] instructions Additional Instructions Take Naprosyn as prescribed for mild to moderate pain. Take Odon as prescribed for severe pain. Take Zofran as prescribed for nausea and vomiting. Increase your intake of fluids.[facility] Work Phone: Hospital Discharge instructions No data available for this section [facility] Additional Instructions Follow-up with your primary care doctor Return to ED if develop worsening symptoms or concerns[facility] Work Phone: Hospital Discharge instructions Additional Instructions Follow-up with your regular doctor tomorrow Call the urologist tomorrow for an earlier follow-up if possible Return for worsening symptoms or concernsK[facility] Work Phone: Hospital Discharge instructions* Attachments The following attachments cannot be sent through Care Everywhere. * Flank Pain (Burkinan) * Nausea and Vomiting (Burkinan) documented in this [facility] Work Phone: Hospital Discharge instructions* Attachments The following attachments cannot be sent through Care Everywhere. * Flank Pain (Burkinan) documented [facility] Work Phone: Hospital Discharge instructions Additional Instructions Take Metamucil daily as prescribed for constipation and Colace and MiraLAX as needed for constipation not relieved with these measures. Take simethicone as prescribed for your abdominal pain. Take Phenergan as prescribed for nausea vomiting.[facility] Work Phone: Hospital Discharge instructions* Attachments The following attachments cannot be sent through Care Everywhere. * Hematuria (Burkinan) * Flank Pain (Burkinan) documented in this encounterBON [facility]ITALPlect[facility] Work Phone: Hospital Discharge instructions Additional Instructions Follow-up with urologist listed below regarding your hematuria with no obstructive uropathy. Take Levaquin as prescribed for your UTI. Take Naprosyn as prescribed for pain. Take Zofran as prescribed for nauseaK[facility] Work Phone: Hospital Discharge instructions* Attachments The following attachments cannot be sent through Care Everywhere. * Abdominal Pain (Burkinan) documented in this encounterBON [facility] Work Phone: Hospital Discharge instructions Additional [...] pain additional injuries or any other concerns [facility] Work Phone: Hospital Discharge instructions Additional Instructions Regular Diet No Activity Restrictions CT abdomen pelvis did demonstrate right nephrolithiasis no hydroureter started on Flomax x7 days, follow-up with primary care physician.[facility] Work Phone: Hospital Discharge instructions Additional Instructions Diabetic Diet No Activity RestrictionsK[facility] Work Phone: Hospital Discharge instructions Additional Instructions Regular Diet No Activity RestrictionsK[facility] Work Phone: Hospital Discharge instructions Additional Instructions Important Contact Information You can call [facility]al [facility] at [phone] any time day or night if you have emergent questions or question regarding discharge instructions. If at any time you are feeling an increase in your psychiatric symptoms, call your physician or behavioral healthcare provider. If any time you have thoughts of harming yourself or others contact one of the following: Call 8-8 (available 19/01) Crisis Text Line (available 19/01) text 4HOPE to [phone] [facility] Hope Line (available 8 a.m. Midnight) call [phone] ([phone]) [facility] Work Phone: Hospital Discharge instructions Additional Instructions Continue current meds Tylenol for painK[facility]tering Health [facility] Work Phone: Progress note No data available for this section [facility] note Author Braulio argueta [facility] January 30, 2023 6:58am Note Date/Time January 30, 2023 6:[address] [facility] [address] [place] [address] Psychiatry Progress Note Signed Patient: Gisel Carlton MR#: [id number] : 1975 Acct:[id number] Age/Sex: 47 / F Adm Date: 3 Loc: Room: [address] [place] [address] Type : ADM IN Attending Dr: Yves [...] signed by Braulio Dukes MD> 01/30/23 0658 [facility] Work Phone: Progress note Author Maxim Pinto [facility] January 31, 2023 12:16pm Note Date/Time January 31, 2023 12: 16pm [facility] [address] [place] [address] Psychiatry Progress Note Signed Patient: Gisel Carlton MR#: [id number] : 1975 Acct:[id number] Age/Sex: 47 / F Adm Date: 3 Loc: 1S Room: [address] [place] [address] Type : ADM IN Attending Dr: Yves [...] signed by Maxim Pinto MD> 01/31/23 1216 [facility] Work Phone: Summary Purpose Family History No Family History Records Found Relationship Condition Age at Onset Recorded Date/T tiesha father Heart disease Unknown Relationship Condition Age at Onset Recorded Date/T tiesha father Heart disease Unknown Not Specified Parkinson's disease Unknown Not Specified Hypertension Unknown Advance Directives No Advanced Directives Records FoundDocuments on File Type Date Recorded Patient Battery Service Technician Expl anation Advance Directives and Living Will Power of Pai Gow Manager Latest Code Status on File Code Status Date Activated Date Inactivated Comments Full Code 02/12/2018 12:21 PM 02/12/2018 3:16 PM Full Code 12/27/2017 10:25 PM 12/30/2017 7:15 PM Full Code 03/10/2017 11:44 AM 03/12/2017 3:42 PM Full Code 01/08/2017 1:24 AM 01/09/2017 6:53 PM Documents on File Type Date Recorded Patient Battery Service Technician Expl anation Advance Directives and Living Will Power of Pai Gow Manager Latest Code Status on File Code Status [...] Documents on File Type Date Recorded Patient Battery Service Technician Expl anation ACP-Advance Directive ACP-Power of Pai Gow Manager Latest Code Status on File Code Status [...] 12:48 AM Healthcare Agents on File Name Maribel Healthcare Agent Relationshi p Communication Esmer Carlton Spouse Primary Decision Maker Steven Wallace Parent Secondary Decision Maker Latest Code Status on File Code Status Date Activated Date Inactivated Comments Full Code 05/28/2020 2:20 AM 05/28/2020 3:40 PM Healthcare Agents on File Name Maribel Healthcare Agent Relationshi p Communication Esmer Carlton Spouse Primary Decision Maker Steven Wallace Parent Secondary Decision Maker Documents on File Type Date Recorded Patient Battery Service Technician Expl anation Advance Directives and Livin g Will 07/08/2020 7:59 PM Documents on File Type Date Recorded Patient Battery Service Technician Expl anation Advance Directives and Livin g Will 08/14/2020 9:20 PM Documents on File Type Date Recorded Patient Battery Service Technician Expl anation Advance Directives and Livin g Will 09/09/2020 9:46 PM Documents on File Type Date Recorded Patient Battery Service Technician Expl anation Advance Directives and Livin g [...] Documents on File Type Date Recorded Patient Battery Service Technician Expl anation Advance Directives and Livin g Will 10/16/2020 7:55 PM Documents on File Type Date Recorded Patient Battery Service Technician Expl anation Advance Directives and Livin g Will 10/18/2020 7:58 PM Documents on File Type Date Recorded Patient Battery Service Technician Expl anation Advance Directive(s) 12/16/2018 4:39 AM Advance Directive(s) 03/25/2016 12:18 AM Healthcare Agents on File Name Mraibel Healthcare Agent Relationshi p Communication Esmer Carlton Spouse Primary Decision Maker Steven Wallace Parent Secondary Decision Maker Documents on File Type Date Recorded Patient Battery Service Technician Expl anation Advance Directives and Livin g Will 02/01/2021 10:15 AM Latest Code Status on File Code Status Date Activated Date Inactivated Comments Full Code 02/01/2021 6:10 AM 02/02/2021 6:50 PM Full Code - Unverified 01/27/2021 2:36 PM 01/31/2021 7:00 PM Healthcare Agents on File Name Relationship Healthcare Agent Relationshi p Communication Esmer Carlton Primary Decision Maker Steven Wallace Parent Secondary Decision Maker Documents on File Type Date Recorded Patient Battery Service Technician Expl anation Advance Directives and Livin g Will 04/20/2021 3:35 AM Documents on File Type Date Recorded Patient Battery Service Technician Expl anation ACP-Advance Directive ACP-Power of Pai Gow Manager Latest Code Status on File Code Status [...] Procedures CT SINUS WO CONTRAST Skye Jones, OAKES MACHINE OPERATOR - WASTE HAND [address] [place] [address] [place] [address] Status Reason Specialty Diagnoses / Procedures Referred By Contact Referred To Contact New Request Urology Diagnoses Urinary tract infection with hematuria, site unspecified Jose Muller MD [address] [place] [address] Specialty Diagnoses / Procedures Referred By Contac t Referred To Contact Radiology Diagnoses Cervical radiculopathy Cervical spondylosis without myelopathy Procedures MRI CERVICAL SPINE WO CONTRAST Delphine Freeman, OAKES MACHINE OPERATOR - WASTE HAND [address] [facility] [address] [place] [address] Referral ID Status Reason Start Date Expiration Date Visits Re quested Visits Authorized [id number] Closed 10/31/2021 12/30/2021 1 1 Specialty Diagnoses / Procedures Referred By Contac t Referred To Contact Radiology Diagnoses Pain Procedures Fluoro For Surgical Procedures Ruben Abdi MD [address] [facility] [facility] [address] [place] [address] Referral ID Status Reason Start Date Expiration Date Visits Re quested Visits Authorized [id number] Open 06/30/2023 06/29/2024 1 1 Assessments Diagnosis [...] Everywhere. * UTI (Urinary Tract Infection): Female (Burkinan) * Flank Pain (Burkinan) documented in this encounter* Attachments The following attachments cannot be sent through Care Everywhere. * UTI (Urinary Tract Infection): Female (Burkinan) documented in this encounter* Discharge Instr - HOME* Raj Moura APRN - CNP - 04/26/2019 2:06 PM EDT Continuity of Care Form Patient Name: Gisel Carlton : 1975 Admit date: 04/26/2019 Discharge date: Code Status Order: Prior Advance Directives: Admitting Physician: No admitting provider for patient encounter. PCP: PEE Uribe CNP Discharging Nurse: Discharging Hospital Unit/Room#: Discharging Unit Phone Number: Emergency Contact: Extended Emergency Contact Information Primary Emergency Contact: BrandtEsmer baez [address]: [address] [place] [id number] [facility] Relation: Spouse Past Surgical History: Past Surgical History: Procedure Laterality Date CARPAL TUNNEL RELEASE 2006 B/L CHOLECYSTECTOMY [address] riley LEG SURGERY Right for fracture repair LITHOTRIPSY REPAIR UMBILICAL BEAU,<5Y/O,REDUC N/A 02/12/2018 REPAIR UMBILICAL HERNIA performed by Marguerite Beckman MD at [facility] OR UPPER GASTROINTESTINAL ENDOSCOPY 02/17/2017 Judi JONES [...] other specified parts of digestive tract Z90.49 nursing home (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 of insulin ([facility]) Z79.4 Pure hypercholesterolemia, unspecified E78.00 Acute hyperglycemia [...] (118.8 kg) Mental Status: {IP PT MENTAL STATUS:} IV Access: { HOME IV ACCESS:436928065} Nursing Mobility/ADLs: Walking {CHP DME ADLs:792760575} Transfer {CHP DME ADLs:537752817} Bathing {CHP DME ADLs:667441001} Dressing {CHP DME ADLs:651129752} Toileting {CHP DME ADLs:701054483} Feeding {P DME ADLs:246954114} Associate Store Manager {P DME ADLs:306060224} Med Delivery { HOME MED Delivery:251275651} Wound Care Documentation and Therapy: Elimination: Continence: Bowel: {YES / NO:} Bladder: {YES / NO:} Urinary Catheter: {Urinary Catheter:215441021} Colostomy/Ileostomy/Ileal Conduit: {YES / NO:} Date of Last BM: No intake or output data in the 24 hours ending 04/26/19 1627 No intake/output data recorded. Safety Concerns: { HOME Safety Concerns:497214877} Impairments/Disabilities: { HOME Impairments/Disabilities:743531786} Nutrition Therapy: Current Nutrition Therapy: { HOME Diet List:593403931} Routes of Feeding: {CHP DME Other Feedings:630234632} Liquids: {Telescope Maintenance liquid thickness:48963} Daily Fluid Restriction: {CHP DME Yes amt example:359664852} Last Modified Barium Swallow with Video (Video Swallowing Test): {Done Not Done Date:} Treatments at the Time of Hospital Discharge: Respiratory Treatments: Oxygen Therapy: {Therapy; copd oxygen:17000} Ventilator: { CC Vent List:587773677} Rehab Therapies: {THERAPEUTIC INTERVENTION:4092985752} Weight Bearing Status/Restrictions: { CC Weight Bearin} Other Medical Equipment (for information only, NOT a DME order): {EQUIPMENT:672698949} Other Treatments: Patient's personal belongings (please select all that are sent with patient): {[facility] DME Belongings:198144884} RN SIGNATURE: {Esignature:798282945} CASE MANAGEMENT/SOCIAL WORK SECTION Inpatient Status Date: Readmission Risk Assessment Score: Readmission Risk Risk of Unplanned Readmission: 0 Discharging to Facility/ Agency Name: Address: Phone: Fax: Dialysis Facility (if applicable) Name: Address: Dialysis Schedule: Phone: Fax: [facility] [employer] Manager signature: {Esignature:087636572} PHYSICIAN SECTION Prognosis: {Prognosis:2193374639} Condition at Discharge: { Patient Condition:552428875} Rehab Potential (if transferring to Rehab): {Prognosis:3238280509} Recommended Labs or Other Treatments After Discharge: Physician Certification: I certify the above information and transfer of Gisel Carlton is necessary for the continuing treatment of the diagnosis listed and that she requires {Admit to Appropriate Level of Care:69600} for {GREATER/LESS:912339820} 30 days. Update Admission H&P: {CHP DME Changes in HandP:868756954} PHYSICIAN SIGNATURE: {Esignature:868729934} * Additional Instructions* Raj Moura APRN - CNP - 04/26/2019 Return to the Emergency Department for any new or concerning symptoms, changes in your current symptoms, fever, or if you feel you are worsening. * Attachments The following attachments cannot be sent through Care Everywhere. * Flank Pain (Burkinan) * Opioid Withdrawal (Burkinan) documented in this encounter* Instructions* Kasia Iqbal [...] Everywhere. * UTI (Urinary Tract Infection): Female (Burkinan) * Flank Pain (Burkinan) documented in this encounter* Attachments The following attachments cannot be sent through Care Everywhere. * Flank Pain (Burkinan) documented in this encounter* Attachments The following attachments cannot be sent through Care Everywhere. * UTI (Urinary Tract Infection): Female (Burkinan) documented in this encounter* Attachments The following attachments cannot be sent through Care Everywhere. * Abdominal Pain (Burkinan) documented in this encounter* Attachments The following attachments cannot be sent through Care Everywhere. * Flank Pain (Burkinan) documented in this encounter* Instructions* Deja Hightower PA-C - 04/30/2020 You are positive for COVID please stay home and self isolate per CDC guidelines. Return to ER for new worsening or concerning symptoms. * Attachments The following attachments cannot be sent through Care Everywhere. * Coronavirus Disease (COVID-19): General Info (Burkinan) documented in this encounter* Instructions* Yanely Coyle DO - 05/01/2020 Immodium AD for diarrhea. Phenergan for nausea. Push fluids. Return if you are having trouble breathing. Do not smoke. Use inhaler as needed. * Attachments The following attachments cannot be sent through Care Everywhere. * Coronavirus Disease (COVID-19): Isolation (Burkinan) * Coronavirus Disease (COVID-19): General Info (Burkinan) documented in this encounter* Instructions* Gabriele Gabriel [...] Care Everywhere. * SOB (Shortness of Breath) (Burkinan) documented in this encounter* Attachments The following attachments cannot be sent through Care Everywhere. * UTI (Urinary Tract Infection): Female (Burkinan) * Flank Pain (Burkinan) documented in this encounter* Instructions* Esmer Tamayo PA-C - 07/08/2020 MAKE ABSOLUTELY CERTAIN THAT YOU SEE YOUR PRIMARY CARE PHYSICIAN IN [place] TOMORROW SCHEDULED. YOU SHOULD ALSO CONTACT FIVE POINTS PRIMARY CARE TO REGISTER A PATIENT IF YOU ARE GOING TO BE MOVING TO [place] ON A PERMANENT BASIS. YOUR DOCTOR WILL ABSOLUTELY NEED TO CHECK THE CULTURE RESULTS WHICH WILL BE RELEASED THURSDAY MORNING TO MAKE CERTAIN THE KEFLEX IS EFFECTIVE AT TREATING YOURINFECTION. CONTINUE TO TAKE THE MACROBID UNTIL IT IS FINISHED. * Attachments The following attachments cannot be sent through Care Everywhere. * Pyelonephritis (Burkinan) * UTI (Urinary Tract Infection): Female (Burkinan) documented in this encounter* Attachments The following attachments cannot be sent through Care Everywhere. * Back Pain (Burkinan) documented in this encounter* Instructions* Esmer Tamayo PA-C - 08/14/2020 Below are two Primary Care Providers whose offices are in your area. They are currently accepting new patients. Please call one of them as soon as possible for a NEW PATIENT APPOINTMENT. It is important for you to have a physician who knows your history for good continuity of care. Ankit Anthony MD [address] [place] [address] P: F: Meagan Burgess MD [address] [place] [id number] P: F: * Attachments The following attachments cannot be sent through Care Everywhere. * UTI (Urinary Tract Infection): Female (Burkinan) * Abdominal Pain (Burkinan) documented in this encounter* Attachments The following attachments cannot be sent through Care Everywhere. * Flank Pain (Burkinan) * Nausea and Vomiting (Burkinan) documented in this encounter* Attachments The following attachments cannot be sent through Care Everywhere. * Flank Pain (Burkinan) * Rate-Control Medicines: General Info (Burkinan) documented in this encounter* Instructions* Lynnette Beth MD - 09/09/2020 Please continue taking antibiotics as prescribed. A review of your labs on prior visits shows that this bacteria and blood in your urine has been chronic for several months. You have been given a list of primary care providers in [facility] who are accepting new patients so you may establish care as soon as possible. * Attachments The following attachments cannot be sent through Care Everywhere. * UTI (Urinary Tract Infection): Female (Burkinan) * [place] [facility] PCP ACCEPTING NEW PATIENTS IN [facility] documented in this encounter* Instructions* Yulissa Saini PA-C - 07/16/2020 Please follow-up with your primary care doctor within 1 to 3 days. Continue Keflex as previously prescribed. Recommended a urology referral from here. If symptoms worsen or persist please present back to the ER. * Attachments The following attachments cannot be sent through Care Everywhere. * UTI (Urinary Tract Infection): Female (Burkinan) documented in this encounter* Attachments The following attachments cannot be sent through Care Everywhere. * Urinary Tract Infection (UTI) in Women ([facility]) (Burkinan) documented in this encounter* Attachments The following attachments cannot be sent through Care Everywhere. * Abdominal Pain (Burkinan) documented in this encounter* Instructions* Ezekiel Jeffers MD - 10/01/2020 Please take antibiotics as prescribed Return to the Emergency Department immediately if you develop worsening symptoms, or you have any other concerns. Please follow up with your family doctor in 1-2 days. * Attachments The following attachments cannot be sent through Care Everywhere. 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 riley LEG SURGERY Right for fracture repair LITHOTRIPSY REPAIR UMBILICAL BEAU,<5Y/O,REDUC N/A 02/12/2018 REPAIR UMBILICAL HERNIA performed by Marguerite Beckman MD at [facility] OR UPPER GASTROINTESTINAL ENDOSCOPY 02/17/2017 Judi JONES JR DO URETER STENT PLACEMENT 3 Medications: Current [...] , Rfl: Insulin Pen Needle ([employer] PENTIPS) 31G X 5 MM [facility], use daily as directed, Disp: 100 each, [...] Disp: 1 Bottle, Rfl: 1 FREESTYLE LANCETS [facility], test 4 times daily as directed, Disp: [...] Information Onset Date: 03/29/19 OT Insurance Information: [id number] Total # of Visits Approved: 12 Total # of Visits to Date: 1 Certification Period Expiration Date: 09/09/19 Progress Note Counter: 1 Restrictions/Precautions Other: Wear right wrist brace at work Burkinan primary language: yes SUBJECTIVE FINDINGS I have [...] pain and numbness. 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 Is this a work related injury: yes Is this a [facility] claim: yes Driving:yes History of Present Illness [...] styloid) 18.1 17.7 Metacarpal Phalangeal 21 20 Humanities Teacher & Pinch Strength 1 trial, setting 2 Right Norm Left Norm Humanities Teacher (lb) 35 56 70 50 [place]akes Pinch [...] take short rest breaks with repetitive data systems manager. Education/Barriers to learning: Barriers:none Education on this date: OT role and POC ASSESSMENT Problems: [x] Decreased UE strength [] Decreased UE ROM [x] Decreased machine sander strength [] Decreased fine motor skills [x] [...] I/ADL's. LTG 2: Pt will increase right machine sander strength from current by 20 lbs to [...] Date documented in this encounter* Linda Calle OTR/L - 08/10/2019 4:30 PM EST Occupational Therapy Daily Note Name: Gisel Carlton : 1975 Diagnosis: Right hand, wrist pain, trigger finger right middle digit Visit Information: Onset Date: 03/29/19 OT Insurance Information: [id number] Total # of Visits Approved: 12 Certification [...] good understanding of HEP. Plan: Continue POC CHERYLE Gil 08/10/2019 5:23 PM documented in this encounter* Linda Calle OTR/L - 08/17/2019 1:00 PM EST Occupational Therapy Daily Note Name: Gisel Carlton : 1975 Diagnosis: Right hand, wrist pain, trigger finger right middle digit Visit Information: Onset Date: 03/29/19 OT Insurance Information: [id number] Total # of Visits Approved: 12 Total [...] RUE. Plan: Continue POC 2x week. 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 to speak to nurse pillowcase cutter and provider regarding further treatment. Pt. 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 complainingof generalized respiratory symptoms, positive [...] to ibuprofen and have her on oral Odon which she stated does not help the [...] vial 40 Units 40 Units Subcutaneous TID WC MONIKA Jones 40 Units at 05/17/20 1640 ibuprofen (ADVIL;MOTRIN) tablet 600 mg 600 mg Oral Q6H PRN Tamela Morales MD 600 mg at 05/13/20 2123 HYDROcodone-acetaminophen (NORCO) 5-325 MG per tablet 1.5 tablet 1.5 tablet Oral Q4H PRN Tamela Morales MD 1.5 tablet at 05/17/20 1553 orphenadrine (NORFLEX) extended release tablet 100 mg 100 mg Oral BID Tamela Morales MD 100 mg at 05/17/202140 lidocaine 4 % external patch 3 patch 3 patch Transdermal Daily Tamela Morales MD 3 patch at 05/15/20826 hydrOXYzine (VISTARIL) capsule 25 mg 25 mg Oral TID Tamela Morales MD 25 mg at 05/17/202140 insulin glargine (LANTUS) injection vial 80 Units 80 Units Subcutaneous Nightly Cruz Quan MD 80 Units at 05/16/202009 vitamin D (ERGOCALCIFEROL) capsule 50,000 Units 50,000 Units Oral Weekly Marcella Robins MD 50,000 Units at 05/17/20851 vitamin C (ASCORBIC ACID) tablet 500 mg 500 mg Oral Daily Marcella Robins MD 500 mg at 05/17/20851 zinc sulfate (ZINCATE) capsule 50 mg 50 mg Oral Daily Marcella Robins MD 50 mg at 05/17/20851 furosemide (LASIX) tablet 40 mg 40 mg Oral Daily Marcella Robins MD 40 mg at 05/17/20851 insulin lispro (HUMALOG) injection vial 0-18 Units 0-18 Units Subcutaneous TID Cruz Quan MD 6 Units at 05/17/201639 insulin lispro (HUMALOG) injection vial 0-9 Units [...] PRN Kristi Craig DO 100 mg at 05/17/202140 metFORMIN (GLUCOPHAGE) tablet 500 mg 500 mg Oral BID Kristi Craig DO 500 mg at 05/17/20 1637 metoprolol tartrate (LOPRESSOR) tablet 25 mg 25 mg Oral BID Kristi Rafa, DO 25 mg at 05/17/20 214 pantoprazole (PROTONIX) tablet 40 mg 40 mg Oral QAM AC Kristi Craig, DO 40 mg at 05/17/20 0712 rosuvastatin (CRESTOR) tablet 20 mg 20 mg Oral Daily Kristi Rafa, DO 20 mg at 05/17/20 0852 0.9 % sodium chloride bolus 30 mL Intravenous PRN Marcella Robins MD dextrose 5 % and 0.45 % sodium chloride infusion Intravenous Continuous PRN Beto Zuniga, DO Stopped at 05/07/20 1155 sodium chloride flush 0.9 % injection 10 mL 10 mL Intravenous 2 times per day Kristi Craig, DO 10 mLat 05/17/202138 sodium chloride flush 0.9 % injection 10 mL 10 mL Intravenous PRN Kristi Craig, DO 10 mL at 337 acetaminophen (TYLENOL) tablet 650 mg 650 mg Oral Q6H PRN Tamela Morales MD 650 mg at 05/08/20 0428 polyethylene glycol (GLYCOLAX) packet 17 g 17 g Oral Daily PRN Kristi Craig, DO promethazine (PHENERGAN) tablet 12.5 mg 12.5 mg Oral Q6H PRN Kristi Craig, DO 12.5 mg at 05/08/20427 Or ondansetron (ZOFRAN) injection 4 mg 4 mg Intravenous Q6H PRN Kristi Craig, DO 4 mg at 05/16/202103 enoxaparin (LOVENOX) injection 30 mg 30 mg Subcutaneous BID Kristi Craig, DO 30 mg at 05/17/202138 guaiFENesin-dextromethorphan (ROBITUSSIN DM) 100-10 MG/5ML syrup 5 mL 5 mL Oral Q4H PRN Kristi Rafa, DO 5 mL at 05/07/20 1353 zolpidem (AMBIEN) tablet 5 mg 5 mg Oral Nightly PRN Kristi Craig, DO 5 mg at 05/17/202142 ALLERGIES: Fentanyl; [...] lower extremities was performed by a registered web manager and the images were submitted for interpretation. [...] multimodal analgesia, I would agree about short-term Odon for 5 days prescription for 15 tablets, [...] her PCP and referred to outpatient psychiatry, [facility] I outlined outpatient prescription, discussed multimodal analgesia, I would agree about short-term Odon for 5 days prescription for 15 tablets, [...] reviwed - has received multiple prescriptions of Odon and percocet by multiple providers - on Odon, lidocaine patch, ibuprofen, norflex per pain management [...] reviwed - has received multiple prescriptions of Odon and percocet by multiple providers - on Odon and Dilaudid PRN, lidocaine patch, ibuprofen, norflex per pain management Disposition - Pt down to nasal cannula. PT/OT. Possibly home in next 24-48 hours. Will need home O2eval prior to discharge. Need to be weaned to PO pain regimen prior to discharge Titus Call DO Internal Medicine * Jacki Claire OTR/Yomaira - 05/16/2020 2:40 PM EST [facility] Occupational Therapy Department Change in Status Communication [...] of other specified parts of digestive tract nursing home (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 of insulin (HCC) Pure hypercholesterolemia, unspecified Acute hyperglycemia Recurrent sinusitis Acute exacerbation of Chronic right flank pain Muscular pain in the flank region COVID-19 virus infection Uncontrolled type 2 diabetes mellitus with hyperglycemia (HCC) * Keyon Callle, DO - 05/15/2020 4:49 PM EST Department [...] reviwed - has received multiple prescriptions of Odon and percocet by multiple providers - on Odon and Dilaudid PRN, lidocaine patch, ibuprofen, norflex per pain management Disposition - Pt down to nasal cannula. PT/OT. Possibly home in next 24-48 hours. Will need home O2eval prior to discharge. Need to be weaned to PO pain regimen prior to discharge Titus Call DO Internal Medicine * Emma Hunter, RN - 05/15/2020 2:50 PM EST Pt is alert and oriented 4. She is still SOB and on 4L nasal cannula. She does not wear any oxygen at home. She c/o right upper back pain. Medicating with norco and dilaudid as needed. Pt remain in covid isolation. * Steven Hi, PT - 05/15/2020 1:22 PM EST Physical Therapy Missed Treatment Facility/Department: [facility] W567/W567-01 NAME: Gisel Carlton : 1975 (44 y.o.) Account: [id number] Gender: female PT referral received. Chart reviewed. [...] assess Fluid Accumulation: No significant fluid accumulation Humanities Teacher Strength: Not Performed Estimated Daily Nutrient Needs: Energy (kcal): 7147-7897 kcals @ 12-14 kcal/kg; Weight Used for Energy Requirements: Current(124 kg) Protein (g): ~122 g protein @ 2 g/kg IBW; Weight Used for Protein Requirements: [place](61 kg) Fluid (ml/day): ~1800; Method Used for [...] Usual Body Weight: 263 lb (119.3 kg)(07/18) [place] Body Weight: 135 lbs; % [place] Body Weight >100% BMI: 42.7 BMI Categories: [...] reviwed - has received multiple prescriptions of Odon and percocet by multiple providers - on Odon and Dilaudid PRN, lidocaine patch, ibuprofen, norflex [...] Medications: insulin lispro 35 Units Subcutaneous TID orphenadrine 100 mg Oral BID lidocaine 3 patch Transdermal Daily hydrOXYzine 25 mg Oral TID insulin glargine 80 Units Subcutaneous Nightly vitamin D 50,000 Units Oral Weekly vitamin C 500 mg Oral Daily zinc sulfate 50 mg Oral Daily furosemide 40 mg Oral Daily insulin lispro 0-18 Units Subcutaneous TID insulin lispro 0-9 Units Subcutaneous Nightly metFORMIN [...] Physical Exam Vitals: 05/13/20 0843 05/13/20 1518 05/13/20201205/14/20 0709 BP: (!) 114/58 139/75 132/78 131/75 [...] of other specified parts of digestive tract nursing home (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 of insulin (HCC) Pure hypercholesterolemia, [...] patient, RN Marcella Robins MD * Marlin Hernandez DO - 05/13/2020 8:35 PM EST Infectious [...] COVID-19 pneumonia done with IV remdesivir on 11/12, on high flow oxygen initially and weaning [...] of other specified parts of digestive tract nursing home (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 of insulin (HCC) Pure hypercholesterolemia, [...] she is down to 5 L O2, %, no fever nausea no vomiting Review of [...] MV Settings: No results for input(s): PHART, ICG7CCT, PO2ART, LGV2LJM, BEART, A5VUZFCY in the last 72 hours. O2 Device: [...] Right flank pain. COMPARISON: 03/01/2020 ACCESSION NUMBER(S): [id number] ORDERING CLINICIAN: MARGUERITE LONG TECHNIQUE: Contiguous axial [...] lower extremities was performed by a registered web manager and the images were submitted for interpretation. [...] Progress Note PCP: Skye Jones APRN - [facility] Date of Admission: 05/05/2020 Chief Complaint: Patient [...] TID insulin lispro 0-9 Units Subcutaneous Nightly metFORMIN 500 mg Oral BID metoprolol tartrate 25 mg Oral BID pantoprazole [...] reviwed - has received multiple prescriptions of Odon and percocet by multiple providers - on Odon and Dilaudid PRN, lidocaine patch, ibuprofen, norflex [...] MV Settings: No results for input(s): PHART, ZFP0RRT, PO2ART, KMT2YUC, BEART, L9DJKPVO in the last 72 hours. O2 Device: High flow nasal cannula O2 Flow Rate (L/min): 15 L/min Dietary Nutrition Supplements: Diabetic Oral Supplement DIET CARB CONTROL; Safety Tray; Safety Tray (Disposables) MEDICATIONS during current hospitalization: Continuous Infusions: dextrose dextrose 5 % and 0.45 % NaCl Stopped (05/07/20 7445) Scheduled Meds: insulin lispro 30 Units Subcutaneous [...] Right flank pain. COMPARISON: 03/01/2020 ACCESSION NUMBER(S): [id number] ORDERING CLINICIAN: MARGUERITE LONG TECHNIQUE: Contiguous axial [...] lower extremities was performed by a registered web manager and the images were submitted for interpretation. [...] assess Fluid Accumulation: No significant fluid accumulation Humanities Teacher Strength: Not Performed Estimated Daily Nutrient Needs: Energy (kcal): 4180-0981 kcals @ 12-14 kcal/kg; Weight Used for Energy Requirements: Current(124 kg) Protein (g): ~122 g protein @ 2 g/kg IBW; Weight Used for Protein Requirements: [place](61 kg) Fluid (ml/day): ~1800; Method Used for [...] Usual Body Weight: 263 lb (119.3 kg)(07/18) [place] Body Weight: 135 lbs; % [place] Body Weight >100% BMI: 42.7 BMI Categories: [...] Jones APRN - JOLYNN Date of Admission: 05/05/2020 Chief Complaint: Patient is saturating in the 90s on HFNC, afebrile, stable HD, Medications: Reviewed Infusion Medications dextrose dextrose 5 % and 0.45 % NaCl Stopped (05/07/20 4055) Scheduled Medications insulin lispro 30 Units Subcutaneous [...] reviwed - has received multiple prescriptions of Odon and percocet by multiple providers - on Odon PRN, is allergic to Toradol - pain management consulted Disposition - home in the next few days if able to wean down O2 requirement * Marlin Hernandez DO - 05/12/2020 7:32 AM EST Infectious [...] of other specified parts of digestive tract nursing home (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 of insulin (HCC) Pure hypercholesterolemia, [...] pain that is relieved with Dilaudid, and Odon. She says pain is not new or changed since admission. Repositioning and rest implemented. Dr. chavarria aware. No distress noted. * Cruz Quan MD - 05/11/2020 10:29 PM EST Progress Note Date:05/11/2020 Room:W567/W567-01 Patient Name:Gisel Carlton Date of :1975 [...] 260 277 313 CHEMISTRIES: Recent Labs 05/09/20 0705/10/20 0735 05/11/20 0818 NA 139 139 136 K 3.3* 3.7 3.9 CL 101 97 96 CO2 25 25 29 BUN 16 18 20 CREATININE 0.39* 0.45* 0.49* GLUCOSE 204* 119* 224* MG 1.7 1.7 1.7 PT/INR:No results for input(s): PROTIME, INR in the last 72 hours. APTT:No results for input(s): APTT in the last 72 hours. LIVER PROFILE: Recent Labs 05/09/20 0705/10/20 0735 05/11/20 0818 AST 13 16 11 [...] EST Hospitalist Progress Note PCP: Skye Jones, PEE - WASTE HAND Date of Admission: 05/05/2020 Chief Complaint: Patient [...] 96 CO2 25 25 29 BUN 16 20 CREATININE 0.39* 0.45* 0.49* CALCIUM 8.7 [...] reviwed - has received multiple prescriptions of Odon and percocet by multiple providers - on Odon PRN, is allergic to Toradol * Alvaro [...] MV Settings: No results for input(s): PHART, ORI9PDE, PO2ART, LSG5NCF, BEART, [id number] in the last 72 hours. O2 Device: [...] Right flank pain. COMPARISON: 03/01/2020 ACCESSION NUMBER(S): [id number] ORDERING CLINICIAN: MARGUERITE LONG TECHNIQUE: Contiguous axial [...] lower extremities was performed by a registered web manager and the images were submitted for interpretation. [...] of other specified parts of digestive tract nursing home (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 of insulin (HCC) Pure hypercholesterolemia, [...] 05/10/2020 11:18 PM EST Progress Note Date:05/10/2020 Room:[place] [address] Patient Name:Gisel Carlton Date of :1975 Age:44 [...] data in the 24 hours ending 05/10/20 9670 Objective: Vital signs: (most recent): Blood pressure [...] Settings: Recent Labs 05/07/20 1623 PHART 7.456* [id number] 32* PO2ART 48* [id number] 22.6 BEART -1 [id number] 86* O2 Device: High flow nasal cannula [...] Right flank pain. COMPARISON: 03/01/2020 ACCESSION NUMBER(S): [id number] ORDERING CLINICIAN: MARGUERITE LONG TECHNIQUE: Contiguous axial [...] lower extremities was performed by a registered web manager and the images were submitted for interpretation. [...] Progress Note PCP: Skye Jones APRN - [facility] Date of Admission: 05/05/2020 Chief Complaint: Patient is saturating in the 90s on HFNC, afebrile, stable HD, Medications: Reviewed Infusion Medications dextrose dextrose 5 % and 0.45 % NaCl Stopped (05/07/20 1105) Scheduled Medications vitamin D 50,000 Units Oral [...] No edema bilaterally. Labs: Recent Labs 05/08/20 0705/09/20 0703 05/10/20 0747 WBC 4.8 5.4 7.2 HGB 12.1 12.0 12.6 HCT 36.7* 35.5* 36.9* PLT 241 260 277 Recent Labs 05/07/20 1619 05/08/20 0701 05/09/20 0705/10/20 0735 NA 139 -- 136 139 139 [...] reviwed - has received multiple prescriptions of Odon and percocet by multiple providers - on Odon PRN, is allergic to Toradol * Marcella [...] Medications: insulin lispro 22 Units Subcutaneous TID furosemide 40 mg Oral Daily insulin glargine [...] 106/65 Pulse: 81 78 89 85 Resp: 20 20 Temp: 97.9 F (36.6 C) 98.1 F [...] of other specified parts of digestive tract nursing home (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 of insulin (HCC) Pure hypercholesterolemia, [...] 05/09/2020 10:35 PM EST Progress Note Date:05/09/2020 Room:[place] [address] Patient Name:Gisel Carlton Date of :1975 Age:44 [...] 0.4 Labs/Imaging/Diagnostics Labs: CBC: Recent Labs 05/07/20 0410 05/07/20 1623 [...] Settings: Recent Labs 05/07/20 1623 PHART 7.456* [id number] 32* PO2ART 48* DOK0FRH 22.6 BEART -1 [id number] 86* O2 Device: High flow nasal cannula [...] Right flank pain. COMPARISON: 03/01/2020 ACCESSION NUMBER(S): [id number] ORDERING CLINICIAN: MARGUERITE LONG TECHNIQUE: Contiguous axial [...] lower extremities was performed by a registered web manager and the images were submitted for interpretation. 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) Pure hypercholesterolemia, [...] Progress Note PCP: Skye Jones APRN - [facility] Date of Admission: 05/05/2020 Chief Complaint: Patient is saturating in the 90s on HFNC, afebrile, stable HD, Medications: Reviewed Infusion Medications dextrose dextrose 5 % and 0.45 % NaCl Stopped (05/07/20 1155) Scheduled Medications insulin lispro 22 Units Subcutaneous [...] of other specified parts of digestive tract nursing home (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 of insulin (HCC) Pure hypercholesterolemia, [...] NaCl Stopped (05/07/20 1155) Objective: Vitals: BP 132/69 Pulse 73 Temp [...] of other specified parts of digestive tract nursing home (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 of insulin (HCC) Pure hypercholesterolemia, unspecified Acute hyperglycemia Recurrent sinusitis Acute exacerbation of Chronic right flank pain Muscular pain in the flank region COVID-19 virus infection Uncontrolled type 2 diabetes mellitus with hyperglycemia (HCC) * Trent Velasquez MD - 05/08/2020 12:57 PM EST Hospitalist Progress Note PCP: Skye Jones APRN - [facility] Date of Admission: 05/05/2020 Chief Complaint: Patient is saturating in the 90s on HFNC, afebrile, stable HD, s/p transfusion of convalescent plasma overnight Medications: Reviewed Infusion Medications dextrose dextrose 5 % and 0.45 % NaCl Stopped (05/07/20 1155) Scheduled Medications furosemide 20 mg Oral Daily [...] plasma to be ready, lab will notify. 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 * Zoltan Gomez [facility] - 05/06/2020 7:37 PM EST Ally Fraga [...] puffs by inhalation with spacer [] Ipratropium [place] 0.02% unit dose by aerosol Ipratropium [place] MDI 2 puffs by inhalation with spacer [] Duoneb (Ipratropium + Albuterol) unit dose by aerosol Ipratropium MDI + Albuterol MDI 2 puffs byinhalation w/spacer MDI to Aerosol [] Albuterol Sulfate MDI Albuterol Sulfate 0.083% unit dose by aerosol [] Levalbuterol MDI 2 puffs by inhalation Levalbuterol 1.25 mg unit dose by aerosol [] Ipratropium [place] MDI by inhalation Ipratropium [place] 0.02% unit dose by aerosol [] Combivent (Ipratropium + Albuterol) MDI by inhalation Duoneb (Ipratropium + Albuterol) unit doseby aerosol Treatment Assessment [Frequency/Schedule]: Change frequency to: no change per Protocol, P&T, [facility] Points 0 1 2 3 4 Pulmonary [...] PRN 5. (0-5) Freq Q4prn * Yanely Roberson, [facility] - 05/06/2020 4:28 PM EST Order for [...] a positive serology test requiring hospitalization for [id number] pneumonia. II. Severe disease defined as having one of the following prior to start of RDV: Requiring invasive or non-invasive mechanical ventilation (start RDV within 48 hours of intubation)* Requiring supplemental oxygen An SpO2 ? 94% on room air^^ Tachypnea (respiratory rate persistently ? 24 breaths per minute) COVID-19 Order: [id number] Status: Final result Visible to patient: No [...] (already ordered) Yanely Roberson PharmD * Kristi Craig, - 05/06/2020 2:33 PM EST Hospitalist Progress Note PCP: Skye Jones, [employer]AK[employer] MACHINE OPERATOR - [facility] Date of Admission: 05/05/2020 Chief Complaint: Subjective: : Patient seen and examined at bedside. She reports continued shortness of breath, cough diarrhea andgeneralized myalgias. She is requesting additional medication for her myalgias. We discussed expected course of the viral illness and I encouraged her to continue [id number] Tylenol and supportive care for her peripheral [...] Patient Requests Assistance: Yes, referral made to kiln head house operator Values / Beliefs Do you have any ethnic, cultural, sacramental, or spiritual presybeterian needs you would like us to beaware of while you are in the hospital?: No Care Plan: Follow up with AD consult. Spiritual Care Services To reach a kiln head house operator for emotional and spiritual support, place an EPIC consult request. If a kiln head house operator is needed immediately, dial 0 and ask to page the on-call kiln head house operator. * Alyssa Montero RN - 05/06/2020 5:24 [...] puffs by inhalation with spacer [] Ipratropium [place] 0.02% unit dose by aerosol Ipratropium [place] MDI 2 puffs by inhalation with spacer [] Duoneb (Ipratropium + Albuterol) unit dose by aerosol Ipratropium MDI + Albuterol MDI 2 puffs byinhalation w/spacer MDI to Aerosol [] Albuterol Sulfate MDI Albuterol Sulfate 0.083% unit dose by aerosol [] Levalbuterol MDI 2 puffs by inhalation Levalbuterol 1.25 mg unit dose by aerosol [] Ipratropium [place] MDI by inhalation Ipratropium [place] 0.02% unit dose by aerosol [] Combivent (Ipratropium + Albuterol) MDI by inhalation Duoneb (Ipratropium + Albuterol) unit doseby aerosol Treatment Assessment [Frequency/Schedule]: Change frequency to: _combivent q4prn per Protocol, P&T, [facility] Points 0 1 2 3 4 Pulmonary [...] mg 10 mg Intravenous Q6H PRN Titus Call, DO 10 mg at 04/21/19 0540 orphenadrine [...] day Milan Morataya MD 10 mL at 04/20/19 2115 sodium chloride flush 0.9 % injection 10 [...] gel 15 g 15 g Oral PRN Mlian Morataya MD dextrose 50 % IV solution [...] vial 0-6 Units 0-6 Units Subcutaneous Nightly Harshar Jered Morataya MD 3 Units at 04/20/19 7478 Allergies Allergen Reactions Fentanyl Itching Pcn [Penicillins] [...] amount of red blood cells URINE CULTURE [[id number]] Collected: 04/19/19 2300 Order Status: Completed Specimen: Urine, clean catch Updated: 04/21/19 0815 Urine Culture, Routine No growth 24 hours [...] of other specified parts of digestive tract nursing home (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 of insulin (HCC) Pure hypercholesterolemia, [...] kidney stone inflammatory urine on admission to [facility] which appears to have slightly less inflammation than urinalysis at [facility] from the Just released from hospital [facility] Continues to continue [...] right flank pain. COMPARISON: 04/13/2019. 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) Pure hypercholesterolemia, unspecified Acute hyperglycemia Recurrent sinusitis UTI (urinary tract infection) Acute exacerbation of Chronic right flank pain Muscular pain in the flank region PLAN: Pyelonephritis by symptoms and inflammatory urine unfortunately no culture to guide therapy Ceftriaxone Discontinue gentamicin * Andrew Washington MD - 04/20/2019 10:05 AM EDT [...] tablet 250 mg 250 mg Oral TID WC Tamela Morales MD 250 mg at 04/20/19 [...] Daily Milan Morataya MD1 spray at 04/20/19 08 pantoprazole (PROTONIX) tablet 40 mg 40 mg [...] day Milan Morataya MD 10 mL at 04/19/192111 sodium chloride flush 0.9 % injection 10 mL 10 mL Intravenous PRN Milan Morataya MD magnesium hydroxide (MILK OF MAGNESIA) 400 MG/5ML suspension 30 mL 30 mL Oral Daily PRN Milan Morataya MD 30 mL at 04/19/19 003 ondansetron (ZOFRAN) injection 4 mg 4 mg [...] Nightly Milan Morataya MD 3 Units at 04/19/19 2243 [...] kidney stone inflammatory urine on admission to [facility] which appears to have slightly less inflammation than urinalysis at [facility] from the Just released from hospital being [facility] for [facility] Clarity, UA TURBIDAbnormal Clear Final 04/17/2019 9:00 PM [facility] Glucose, Ur >=1000Abnormal Negative mg/dL Final 04/17/2019 9:00 PM [facility] Bilirubin Urine Negative Negative Final 04/17/2019 9:00 PM [facility] Ketones, Urine TRACEAbnormal Negative mg/dL Final 04/17/2019 9:00 PM [facility] Specific Dent, UA 1.040 1.005 - 1.030 Final 04/17/2019 9:00 PM [facility] Blood, Urine LARGEAbnormal Negative Final 04/17/2019 9:00 PM [facility] pH, UA 5.5 5.0 - 9.0 Final 04/17/2019 9:00 PM [facility] Protein, UA TRACEAbnormal Negative mg/dL Final 04/17/2019 9:00 PM [facility] Urobilinogen, Urine 0.2 <2.0 E.U./dL Final 04/17/2019 9:00 PM [facility] Nitrite, Urine Negative Negative Final 04/17/2019 9:00 PM [facility] Leukocyte Esterase, Urine SMALLAbnormal Negative Final 04/17/2019 9:00 PM [facility] Urine Reflex to Culture YES Final 04/17/2019 9:00 PM [facility] Patient has multiple urine cultures showing only mixed growth over the past 6 months 04/14/2019 12:36 PM [facility] Ref Range & Units Status Collected Lab Color, Urine LINDA STRAW,YELL Final 04/14/2019 11:35 AM [facility] Appearance HAZY CLEAR Final 04/14/2019 11:35 AM [facility] Specific Dent, Urine 1.006 1.005 - 1 Final 04/14/2019 11:35 AM [facility] pH, UA 6.0 5.0 - 8.0 Final [...] 1.9 mg/dL Final 04/14/2019 11:35 AM [facility] Nitrite, Urine POSITIVEAbnormal NEGATIVE Final 04/14/2019 11:35 AM [facility] Leukocyte Esterase, Urine LARGE (3+)Abnormal NEGATIVE Final 04/14/2019 11:35 AM [facility] 04/14/2019 12:36 PM [facility] Ref Range & Units Status Collected Lab WBC, UA 35Abnormal 0 - 5 /HPF Final 04/14/2019 11:35 AM [facility] RBC, UA >182Abnormal 0 - 5 /HPF Final 04/14/2019 11:35 AM [facility] Squam Epithel, UA 2 /HPF Final 04/14/2019 11:35 AM [facility] BACTERIA, URINE 4+Abnormal /HPF Final 04/14/2019 11:35 AM [facility] SOURCE: URINE COLLECTED: 04/12/19 21:45 ANTIBIOTICS AT [...] right flank pain. COMPARISON: 04/13/2019. ACCESSION NUMBER(S): [id number] ORDERING CLINICIAN: SAE HORTON TECHNIQUE: Contiguous axial [...] of other specified parts of digestive tract nursing home (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 of insulin (HCC) Pure hypercholesterolemia, [...] vial 5 Units 5 Units Subcutaneous TID Andrew Washington MD 5 Units at 04/19/19 1200 oxyCODONE-acetaminophen (PERCOCET) 5-325 MG per tablet 1 tablet 1 tablet Oral Q4H PRN Andrew Washington MD albuterol sulfate HFA 108 (90 Base) MCG/ACT inhaler 2 puff 2 puff Inhalation Q4H PRN Harshar Jered Morataya MD dicyclomine (BENTYL) capsule 10 mg 10 mg Oral 4x Daily AC & HS Samer Jered Morataya MD 10 mg at 04/19/19 1015 fluticasone (FLONASE) 50 MCG/ACT nasal spray 1 spray 1 spray Each Nostril Daily Samer Jered Morataya MD1 spray at 04/19/19 0901 pantoprazole (PROTONIX) tablet 40 mg 40 mg Oral QAM AC Samer Jered Morataya MD 40 mg at 04/19/19 0546 phenazopyridine (PYRIDIUM) tablet 100 mg 100 mg Oral TID PRN Harsha Jered Morataya MD rosuvastatin (CRESTOR) tablet 20 mg 20 mg Oral Daily Samer Jered Morataya MD 20 mg at 04/19/19 0853 tiZANidine (ZANAFLEX) tablet 4 mg 4 mg Oral Nightly Samer Jered Morataya MD 4 mg at 04/18/195 sodium chloride flush 0.9 % injection 10 mL 10 mL Intravenous 2 times per day Samer Jered Morataya MD 10 mL at 04/18/192126 sodium chloride flush 0.9 % injection 10 mL 10 mL Intravenous PRN Milan Morataya MD magnesium hydroxide (MILK OF MAGNESIA) 400 MG/5ML suspension 30 mL 30 mL Oral Daily PRN Harshar Jered Morataya MD 30 mL at 04/19/19 0033 ondansetron (ZOFRAN) injection 4 mg 4 mg Intravenous Q6H PRN Milan Morataya MD 4 mg at 04/19/19 0735 enoxaparin (LOVENOX) injection 40 mg 40 mg Subcutaneous Daily Samer Jered Morataya MD 40 mg at 853 acetaminophen (TYLENOL) tablet 650 mg 650 mg Oral Q4H PRN Milan Morataya MD cefTRIAXone (ROCEPHIN) 1 g IVPB in 50 mL D5W minibag 1 g Intravenous Q24H Samer Jered Morataya MD Stopped at 04/19/19 0130 glucose (GLUTOSE) 40 % oral gel 15 g 15 g Oral PRN Harshafernanda Morataya MD dextrose 50 % IV solution [...] 3) DM 2 stable Anticipated discharge tomorrow nAdrew Washington MD 04/19/2019 * Holly Donaldson RN [...] course well. Will continue to monitor. * Andrwe Washington MD - 04/18/2019 12:50 PM EDT Gisel Carlton is a 43 y.o. female patient. Pt was seen and evalauted, feeling a lot better compared to before, will cont with same abx Current Facility-Administered Medications Medication Dose Route Frequency Provider Last Rate Last Dose albuterol sulfate HFA 108 (90 Base) MCG/ACT inhaler 2 puff 2 puff Inhalation Q4H PRN Harshar Jered Morataya MD dicyclomine (BENTYL) capsule 10 mg 10 mg Oral 4x Daily AC & HS Samer Jered Morataya MD 10 mg at 04/18/19 1152 fluticasone (FLONASE) 50 MCG/ACT nasal spray 1 spray 1 spray Each Nostril Daily Harshar Jered Morataya MD pantoprazole (PROTONIX) tablet 40 mg 40 mg Oral QAM AC Samer Jered Morataya MD 40 mg at 04/18/19 0548 phenazopyridine (PYRIDIUM) tablet 100 mg 100 mg Oral TID PRN Milan Morataya MD rosuvastatin (CRESTOR) tablet 20 mg 20 mg Oral Daily Samer Jered Morataya MD 20 mg at 04/18/19 0817 tiZANidine (ZANAFLEX) tablet 4 mg 4 mg Oral Nightly Harshar Jered Morataya MD 4 mg at 04/18/19 0152 sodium chloride flush 0.9 % injection 10 mL 10 mL Intravenous 2 times per day Harshar Jered Morataya MD 10 mL at 04/18/19 0818 sodium chloride flush 0.9 % injection 10 mL 10 mL Intravenous PRN Milan Morataya MD magnesium hydroxide (MILK OF MAGNESIA) 400 MG/5ML suspension 30 mL 30 mL Oral Daily PRN Milan Morataya MD ondansetron (ZOFRAN) injection 4 mg 4 mg Intravenous Q6H PRN Milan Morataya MD enoxaparin (LOVENOX) injection 40 mg 40 mg Subcutaneous Daily Harshar Jered Morataya MD 40 mg at 817 acetaminophen [...] 0-6 Units Subcutaneous Nightly Milan Morataya MD HYDROmorphone (DILAUDID) injection 0.5 mg 0.5 mg Intravenous Q3H PRN Milan Morataya MD 0.5 mg at 04/18/191152 metoclopramide (REGLAN) injection 10 mg 10 mg Intravenous Q6H Milan Morataya MD 10 mg at 153 Allergies Allergen Reactions Fentanyl Itching Pcn [Penicillins] [...] puffs by inhalation with spacer [] Ipratropium [place] 0.02% unit dose by aerosol Ipratropium [place] MDI 2 puffs by inhalation with spacer [] Duoneb (Ipratropium + Albuterol) unit dose by aerosol Ipratropium MDI + Albuterol MDI 2 puffs byinhalation w/spacer MDI to Aerosol [] Albuterol Sulfate MDI Albuterol Sulfate 0.083% unit dose by aerosol [] Levalbuterol MDI 2 puffs by inhalation Levalbuterol 1.25 mg unit dose by aerosol [] Ipratropium [place] MDI by inhalation Ipratropium [place] 0.02% unit dose by aerosol [] Combivent (Ipratropium + Albuterol) MDI by inhalation Duoneb (Ipratropium + Albuterol) unit doseby aerosol Treatment Assessment [Frequency/Schedule]: Change frequency to: NO CHANGES per Protocol, P&T, MEC Points 0 1 2 3 4 Pulmonary [...] to monitor. documented in this encounter* Linda Calle, OTR/L - 08/15/2019 1:00 PM EST Occupational Therapy Daily Note Name: Gisel Carlton : 1975 Diagnosis: Right hand, wrist pain, trigger finger right middle digit Visit Information: Onset Date: 03/29/19 OT Insurance Information: [id number] Total # of Visits Approved: 12 Certification [...] RUE with all activities. Plan: Continue POC. WASTE HAND provided prescription for patient's pain. 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 Linda Calle OTR/Yomaira 08/15/2019 2:07 PM documented in this encounter Hospital Course * Titus Call DO - 05/18/2020 3:56 PM EST Physician Discharge Summary Patient ID: Gisel Carlton [id number] 44 y.o. 1975 Admit date: 05/05/2020 Discharge [...] of chronic pain with opiate dependence, on Odon and Dilaudid PRN, lidocaine patch, ibuprofen, norflex [...] Refills: 3 vitamin D (ERGOCALCIFEROL) 1.25 MG (17693 UT) CAPS capsule Take 1 capsule by [...] complication, with long-term current use of insulin ([facility]) CONTINUE these medications which have NOT CHANGED [...] complication, with long-term current use of insulin ([facility]) metoprolol tartrate (LOPRESSOR) 25 MG tablet TAKE 1 TABLET BY MOUTH TWICE DAILY Qty: 30 tablet, Refills: 5 Associated Diagnoses: Tachycardia Insulin Pen Needle ([facility] UNIFINE PENTIPS) 31G X 5 MM MISC use 4 times daily as directed with insulin injections Qty: 100 each, Refills: 2 Associated Diagnoses: Controlled type 2 diabetes mellitus with hyperglycemia, unspecified whether technician terminal and repeater insulin use ([facility]) rosuvastatin (CRESTOR) 20 MG tablet TAKE 1 TABLET BY MOUTH EVERY DAY Qty: 30 tablet, Refills: 5 Associated Diagnoses: Hyperlipidemia, unspecified hyperlipidemia type metFORMIN (GLUCOPHAGE) 500 MG tablet TAKE 2 TABLETS BY MOUTH TWICE DAILY Qty: 120 tablet, Refills: 5 Associated Diagnoses: Uncontrolled type 2 diabetes mellitus with complication, with long-term current use of insulin ([facility]) omeprazole (PRILOSEC) 20 MG delayed release capsule [...] Physician Discharge Summary Patient ID: Gisel Carlton [id number] 43 y.o. 1975 Admit date: 04/17/2019 Discharge date and time:04/22/19 Admitting Physician: Milan Morataya MD Discharge Physician: FELIX Admission Diagnoses: UTI (urinary tract infection) [N39.0] [...] tablet 250 mg 250 mg Oral TID WC Tamela Morales MD 250 mg at 04/22/19 0846 albuterol sulfate HFA 108 (90 Base) MCG/ACT inhaler 2 puff 2 puff Inhalation Q4H PRN Milan Morataya MD dicyclomine (BENTYL) capsule 10 mg 10 mg Oral 4x Daily AC & HS Milan Morataya MD 10 mg at 04/22/19 0613 fluticasone (FLONASE) 50 MCG/ACT nasal spray 1 spray 1 spray Each Nostril Daily Milan Morataya MD1 spray at 04/22/19 0848 pantoprazole (PROTONIX) tablet 40 mg 40 mg Oral QAM AC Milan Morataya MD 40 mg at 04/22/19 0613 phenazopyridine (PYRIDIUM) tablet 100 mg 100 mg Oral TID PRN Milan Morataya MD rosuvastatin (CRESTOR) tablet 20 mg 20 mg Oral Daily Milan Morataya MD 20 mg at 04/22/19 0846 sodium chloride flush 0.9 % injection 10 mL 10 mL Intravenous 2 times per day Milan Morataya MD 10 mL at 04/21/192030 sodium chloride flush 0.9 % injection 10 [...] flank pain, Vomiting R flank pain, Vomiting BH MDD Right Shoulder Pain MDD Major Depression, [...] flank pain, Vomiting R flank pain, Vomiting BH MDD Right Shoulder Pain MDD Major Depression, [...] flank pain, Vomiting R flank pain, Vomiting BH MDD Right Shoulder Pain MDD Major Depression, [...] Chief Complaint chest pain hx recent surgery Chief Complaint BH chest pain hx recent surgery Major Depression Reason for Visit Major depressive dis order, recurrent Suicidal ideation Chief Complaint chest pain hx recent surgery Major Depression R flank pain,cp Reason for Visit Major depressive dis order, recurrent Suicidal ideation Additional Source Comments INFORMATION SOURCE (unrecogn ized section and content) DATE CREATED AUTHOR 09/26/2018 [facility] DATE CREATED AUTHOR AUTHOR'S ORGANIZ ATION 12/17/2018 [facility] DATE CREATED AUTHOR AUTHOR'S ORGANIZ ATION 07/16/2019 [facility] DATE CREATED AUTHOR AUTHOR'S ORGANIZ ATION 03/16/2020 [employer] DATE CREATED AUTHOR AUTHOR'S ORGANIZ ATION 11/23/2020 [facility] DATE CREATED AUTHOR AUTHOR'S ORGANIZ ATION 12/16/2020 [facility] DATE CREATED AUTHOR AUTHOR'S ORGANIZ ATION 02/07/2021 [facility] DATE CREATED AUTHOR AUTHOR'S ORGANIZ ATION 08/01/2021 [facility] DATE CREATED AUTHOR AUTHOR'S ORGANIZ ATION 10/31/2021 [facility] dical Specialist DATE CREATED AUTHOR AUTHOR'S ORGANIZ ATION 11/15/2021 [facility] DATE CREATED AUTHOR AUTHOR'S ORGANIZ ATION 11/21/2021 [facility] [facility] DATE CREATED AUTHOR AUTHOR'S ORGANIZ ATION 12/20/2021 [facility] DATE CREATED AUTHOR AUTHOR'S ORGANIZ ATION 01/22/2022 [facility] DATE CREATED AUTHOR AUTHOR'S ORGANIZ ATION 02/07/2022 [facility] DATE CREATED AUTHOR AUTHOR'S ORGANIZ ATION 05/20/2022 [facility] DATE CREATED AUTHOR AUTHOR'S ORGANIZ ATION 05/29/2022 [facility] DATE CREATED AUTHOR AUTHOR'S ORGANIZ ATION 08/16/2022 [facility] DATE CREATED AUTHOR AUTHOR'S ORGANIZ ATION 10/23/2022 [facility] DATE CREATED AUTHOR AUTHOR'S ORGANIZ ATION 05/11/2023 [facility] DATE CREATED AUTHOR AUTHOR'S ORGANIZ ATION 06/08/2023 [facility] DATE CREATED AUTHOR AUTHOR'S ORGANIZ ATION 07/10/2023 [facility] DATE CREATED AUTHOR AUTHOR'S ORGANIZ ATION 07/26/[address] [facility] DATE CREATED AUTHOR AUTHOR'S ORGANIZ ATION 08/27/2023 [facility] DATE CREATED AUTHOR AUTHOR'S ORGANIZ ATION 09/04/2023 [facility] EPIC Reason for Visit (unrecogniz ed section and content) Reason Comments Flank Pain Specialty Diagnoses / Procedures Referred By Nisha t Referred To Contact Diagnoses Hypotension Prolonged QT interval Right flank pain 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) Hypotension, unspecified hypotension type Nausea and vomiting, unspecified vomiting type Referral ID Status Reason Start Date Expiration Date Visits Re quested Visits Authorized [id number] 1 1 Status Reason Specialty Diagnoses / Procedures Referre d By Contact Referred To Contact Closed Radiology Diagnoses Recurrent sinus infections Procedures CT SINUS WO CONTRAST Skye Jones, OAKES MACHINE OPERATOR - WASTE HAND [address] [place] [address] [facility] [address] Scan [address] [place] [address] Reason Comments Flank Pain left flank pain [...] Diagnoses COVID-[place] [address] [address] [facility] [address] [place] [address] [employer] Reason Comments Shortness of Breath pt c/o SOB and heart palpitations, Dx with covid on 04/30 Reason Comments Shortness of Breath Hyperglycemia Status Reason Specialty Diagnoses / Procedures Referred By Contact Referred To Contact Diagnoses COVID-19 [place] [address] [place] [address] [employer] Reason Comments Flank Pain Left flank pain Reason Comments Flank Pain Emesis Reason Comments Abdominal Pain Nausea Diarrhea Emesis Status Reason Specialty Diagnoses / Procedures Referred By Contact Referred To Contact Pending Review Radiology Diagnoses Abnormal liver CT Procedures US ABDOMEN LIMITED US LIVER SPLEEN Skye Jones, OAKES MACHINE OPERATOR - WASTE HAND [address] [facility] [address] [place] [address] [facility] [address] [place] [address] Reason Comments Flank Pain right Emesis Reason Comments Flank Pain x 1 day Reason Comments Flank Pain Right sided Status Reason Specialty Diagnoses / Procedures Referre d By Contact Referred To Contact Diagnoses UTI (urinary tract infection) Milan Morataya MD [address] [place] [address] [facility] Reason Comments Flank Pain to ED with [...] same Specialty Diagnoses / Procedures Referred By Nisha oleary Referred To Contact Radiology Diagnoses Cervical radiculopathy Cervical spondylosis without myelopathy Procedures MRI CERVICAL SPINE WO CONTRAST Delphine Freeman, OAKES MACHINE OPERATOR - WASTE HAND [address] [facility] [address] [place] [address] Referral ID Status Reason Start Date Expiration Date Visits Re quested Visits Authorized [id number] Closed 10/31/2021 12/30/2021 1 1 Reason Comments Flank Pain Nausea Specialty Diagnoses / Procedures Referred By Nisha t Referred To Contact Diabetes Services Diagnoses Type 2 diabetes mellitus without complication, with long-term current use of insulin ([facility]) Skye Jones, OAKES MACHINE OPERATOR - WASTE HAND [address] [facility] [address] [place] [address] [facility] [address] [place] [address] Referral ID Status Reason Start Date Expiration Date Visits Requested Visits Authorized [id number] Authorized Specialty Services Required 07/28/2022 07/28/2023 2 2 Reason Comments Flank Pain Right side, since Mo nday with vomiting and nausea, denies dysuria, reports blood tinged urine, hx of kidney stone Reason Comments Flank Pain Right side Reason Comments Abdominal Pain Emesis Since 2199 Referral ID Status Reason Start Date Expiration Date Visits Requested Visits Authorized [id number] Authorized Specialty Services Required 08/04/2022 08/04/2023 5 5 Specialty Diagnoses / Procedures Referred By Nisha oleary Referred To Contact Diagnoses Cervical stenosis of spine Cervical stenosis of spine [M48.02] Procedures ID ANTERIOR INSTRUMENTATION 4-7 VERTEBRAL SEGMENTS ID ARTHRD ANT INTERDY CERVCL BELW C2 EA ADDL NTRSPC ID INSJ BIOMCHN DEV INTERVERTEBRAL DSC SPC W/ARTHRD ID INSJ BIOMCHN DEV INTERVERTEBRAL DSC SPC W/ARTHRD ID INSJ BIOMCHN DEV INTERVERTEBRAL DSC SPC W/ARTHRD ID ANTERIOR INSTRUMENTATION 2-3 VERTEBRAL SEGMENTS ID ALLOGRAFT FOR SPINE SURGERY ONLY MORSELIZED C5-6, [...] TRULICITY INJECTION ON 06/22/2023/ Ruben Dias MD [address] [address] [facility] [address] [place] [address] Referral ID Status Reason Start Date Expiration Date Visits Re quested Visits Authorized [id number] 1 1 Ordered Prescriptions (unrec ognized section [...] documented in this encounter ED PROVIDER NOTE [facility] EMERGENCY [facility]MENT NAME: Gisel Carlton AGE: 45 y.o. : 1975 VISIT DATE: 07/16/2020 CSN: [id number] PCP: Provider Not in System Chief Complaint [...] file Gets together: Not on file Attends [employer] service: Not on file Active member of [...] Yellow Clarity, Urine Cloudy (A) Clear Specific Dent 1.029 (H) 1.005 - 1.025 pH, Urine [...] distended stomach. Additional findings as described above. /[facility] Workstation ID: [id number] Procedures MDM Number of Diagnoses or Management Options Diagnosis management comments: Patient was evaluated on 07/01, 07/08 and today for urinary symptoms and flank pain. Patient was written for Keflex on the of this month. She will [...] care in stable condition. Follow-up Information 1. [facility]. [address] [place] [id number] Contact information for after-discharge care Follow-up information has not been specified. Yulissa Saini PA-C 07/16/201957 Pt states she has had right flank pain for a couple of hours. States that she has had kidney stones before and this feels similar. documented in this encounter Emergency Department Report [facility] EMERGENCY DEPARTMENT Service Date:.09/20/20 PCP: No primary [...] complaints. Appears that she normally goes to [facility]. Patient was going to the [facility] system prior to going to [place]. There is no report of cough no [...] PO Daily April 23, 2020 7:41pm 04-23-2020 [facility] ([id number]) ERGOCALCIFEROL 1.25 MG (36746 UT) CAPSULE 1,250 mcg. INSULIN DEGLUDEC 200 [...] Friends and Family: Not on file Attends Hinduism Services: Not on file Active Member of [...] traZODone 100 MG tablet ergocalciferol 1.25 MG (89848 UT) capsule celecoxib 100 MG capsule traMADol [...] information. . . Jose Muller MD 09/20/20 3150 documented in this encounter ED Attestation Note - Cristi Feng MD - 07/08/2020 7:59 PM ESTED Attestation Note - Dominik Lucas MD - [...] or prosecute any alcohol or drug abuse patient.[facility] Scheduled Active and Recently Administ ered Medications (unrecognized section and content) Medication Order 11/17/2020 11/18/2020 11/19/2020 dicyclomine (BENTYL) injection 20 mg (COMPLETED) 20 mg, Intramuscular, ONCE, 1 dose, On Thu11/19/20 at 2130 2115 (Given - Provid er: Juana Win RN) HYDROmorphone (DILAUDID) injection 1 mg (COMPLETED) 1 mg, Intravenous, ONCE, 1 dose, On Thu11/19/20 at 2014 2019 (Given - Provid er: Juana Win RN) ondansetron 4mg/2ml (ZOFRAN) injection 4 mg (COMPLETED) 4 mg, Intravenous, ONCE, 1 dose, On Thu11/19/20 at 2014 2019 (Given - Provid er: Juana Win RN) sodium chloride 0.9% IV solution 1,000 mL (COMPLETED) 1,000 mL, Intravenous, ONCE, 1 dose, On Thu11/19/20 at 2044 2019 ($$New Bag$$ - Provider: Juana Win, SHALOM)214 (Stopped - Provider: Saundra Mendoza, RN) sodium chloride 0.9% IV solution 1,000 mL (COMPLETED) 1,000 mL, Intravenous, ONCE, 1 dose, On 11/19/20 at 2200 2149 ($$New Bag$$ - Provider: Saundra Mendoza RN)2238 (Stopped - Provider: Juana Win, SHALOM) Scheduled Medication Order 11/24/2020 11/25/2020 11/26/2020 0.9 % sodium chloride bolus (COMPLETED) 1,000 mL (10 mL/kg), Intravenous, at 500 mL/hr, Administer over 2 Hours, ONCE, On 11/25/20 at 2129, For 1 dose 222 (New Bag - Provider: Charu Fung RN) 0009 (Stopped - Provider: Jayleen High, SHALOM) cefTRIAXone (ROCEPHIN) 1000 mg IVPB in 50 mL D5W minibag (COMPLETED) 1,000 mg, Intravenous, ONCE, 1 dose, On 11/25/20 at 2250 2313 (New Bag - Provider: Charu Fung, SHALOM)2354 (Stopped - Provider: Jayleen High, SHALOM) diphenhydrAMINE (BENADRYL) injection 25 mg (COMPLETED) 25 mg, Intravenous, ONCE, On 11/25/20 at 2250, For 1 dose 2312 (Given - Provider: Charu Fung, SHALOM) HYDROmorphone (DILAUDID) injection 1 mg 1 mg, [...] On 11/25/20 at 2250, For 1 dose 2312 (Given - Provider: Charu Fung, SHALOM) ondansetron (ZOFRAN) injection 4 mg (COMPLETED) 4 mg, Intravenous, ONCE, On 11/25/20 at 2129, For 1 dose 223 (Given - Provider: Charu Fung, SHALOM) PRN Medication Order 11/24/2020 11/25/2020 11/26/2020 HYDROmorphone [...] specifically ordered. 2229 (Given - Provider: Genet Fung, SHALOM)2312 (Given - Provider: Charu Fung RN) Scheduled Medication Order 01/31/2021 02/01/2021 02/02/2021 atorvastatin (LIPITOR) tablet 40 mg 40 mg, Oral, Nightly, First dose on Thu02/01/21 at 2100 2004 (Given - Provider: Jose Sevilla RN) cefdinir (OMNICEF) capsule 300 mg 300 mg, Oral, Every 12 hours scheduled, First dose on 02/02/21 at 1000, Indication: Other (specify), Indication: UTI [...] 24 hours, First dose on 02/02/21 at 0000, Indication: UTI (mild to moderate) 0042 (New Bag - Provider: Jose Sevilla RN)0044 (Rate/Dose Verify - Provider: Jose Sevilla RN)0112 (Stopped - Provider: Jose Sevilla RN)0359 (Stopped - Provider: Jose Sevilla, SHALOM) diphenhydrAMINE (BENADRYL) injection 50 mg (COMPLETED) 50 [...] On Thu02/01/21 at 0205, For 1 dose 022 (Given - Provider: Fidelia Sanchez RN) insulin [...] NOT hold basal insulin without notifying physician 2234 (Given - Provider: Jose Sevilla RN) insulin lispro (HumaLOG) injection 0-15 Units 0-15 [...] Membreno, SHALOM)1228 (Given - Provider: Holly Membreno, SHALOM)1630 (Due) metoclopramide (REGLAN) injection 10 mg (COMPLETED) 10 mg, Intravenous, Once, On Thu02/01/21 at 0205, For 1 dose 0222 (Given - Provider: Fidelia Sanchez RN) pantoprazole (PROTONIX) EC tablet 40 mg 40 mg, Oral, Daily, First dose on Thu02/01/21 at 0900, DO NOT CRUSH OR CHEW. 0918 (Given - Provider: Anamaria Ayoub RN) 0837 (Given - Provider: Holly Membreno RN) phenazopyridine (PYRIDIUM) tablet 200 mg 200 mg, Oral, 3 times daily after meals, First dose on Thu02/01/21 at 1300, For 48 hours 1310 (Given - Provider: Anamaria Ayoub RN)1735 (Given - Provider: Jenny Horvath RN) 0837 (Given - Provider: Holly Membreno RN)1234 (Given - Provider: Holly Membreno, SHALOM) senna-docusate (SENNA-S) 8.6-50 mg per tablet 1 tablet 1 tablet, Oral, 2 times daily, First dose on Thu02/01/21 at 0900, NOT for abdominal surgery patients. Hold for loose stools. Do Not Crush or Chew if administering orally due to bitter taste. May be crushed if given via tube. 0918 (Given - Provider: Anamaria Ayoub RN)2004 (Given [...] Ayoub RN)1437 (Rate/Dose Verify - Provider: Anamaria Ayoub, RN)1700 (Rate/Dose Verify - Provider: Jenny Horvath, SHALOM)2016 (New Bag - Provider: Jose Sevilla RN)2236 (Rate/Dose Verify - Provider: Jose Sevilla RN) 0359 (Rate/Dose Verify - Provider: Jose Sevilla RN)0608 (Rate/Dose Verify - Provider: Jose Sevilla RN)0846 (New Bag - Provider: Holly Membreno, RN)1111 (Rate/Dose Change - Provider: Holly Membreno, SHALOM)1408 (Rate/Dose Change - Provider: Holly Membreno, RN)1650 (Stopped - Provider: Holly Membreno, SHALOM) PRN Medication Order 01/31/2021 02/01/2021 02/02/2021 HYDROcodone-acetaminophen [...] Carmelita Martinez RN)0921 (Given - Provider: Anamaria Ayoub RN)1310 (Given - Provider: Anamaria Ayoub RN)1705 (Given - Provider: Jenny Horvath RN)2005 (Given - Provider: Jose Sevilla RN) 0040 (Given - Provider: Jose Sevilla, RN)0408 (Given - Provider: Jose Sevilla, SHALOM)0843 (Given - Provider: Holly Membreno RN) naloxone [...] 1227 1234 (Given - Provid er: Holly Membreno, SHALOM) prochlorperazine (COMPAZINE) injection 5 mg 5 mg, [...] Sevilla RN) 0843 (Given - Provider: Holly Membreno, SHALOM) sodium chloride (PF) (NS) flush 5 mL(Linked [...] ONCE, On Thu04/15/21 at 2023, For 1 dose, Maximum dose [...] RN) 0851 (Given - Provider: Suzette Enrique, SHALOM) 0833 (Given - Provider: Suzette Enrique, RN) cefTRIAXone (ROCEPHIN) 1000 mg in sodium [...] MEALtime PREprandial 0949 (Given - Provider: Quincy Johnson RN)1130 (Not Given - Provider: Quincy Johnson RN - Reason: Contraindicated - Comment: too close to previous dose)1722 (Given - Provider: Quincy Johnson RN) 0851 (Given - Provider: Suzette Enrique RN - Comment: [address] Cadena)1130 (Given - Provider: Suzette Enrique RN)1814 (Given - Provider: Suzette Enrique RN) 0834 (Given - Provider: Suzette Enrique RN)1130 (Not Given - Provider: Suzette Enrique RN - Reason: Patient/family refused) lactated ringers bolus 1,000 mL (COMPLETED) 1,000 mL, Intravenous, at 983.6 mL/hr, Once, On Thu12/04/21 at 0520, For 1 dose 0544 (New Bag - Provider: Monica Arora, SHALOM)0645 (Stopped - Provider: Monica Arora, SHALOM) magnesium [...] 0054 (New Bag - Provider: Monica Arora, RN)0155 (Stopped - Provider: Monica Arora RN) Continuous Medication Order 12/04/2021 12/05/2021 12/06/2021 lactated Ringers infusion 50 mL/hr, Intravenous, Continuous, Starting on Thu12/04/21 at 0520 0545 (New Bag - Provider: Monica Arora RN)1415 (New Bag - Provider: Quincy Johnson RN)1416 (Paused - Provider: Juliet Ditmars, METAL WASHING MACHINE OPERATOR)1416 (Restarted - Provider: Juliet Ditmars, METAL WASHING MACHINE OPERATOR)1416 (Paused - Provider: Juliet Ditmars, METAL WASHING MACHINE OPERATOR)1418 (Restarted - Provider: Juliet Ditmars, METAL WASHING MACHINE OPERATOR)1703 (Paused - Provider: Juliet Ditmars, METAL WASHING MACHINE OPERATOR)170 (Restarted - Provider: Juliet Ditmars, METAL WASHING MACHINE OPERATOR)192 (Paused - Provider: Juliet Ditmars, METAL WASHING MACHINE OPERATOR)192 (Restarted - Provider: Juliet Ditmars, METAL WASHING MACHINE OPERATOR)192 (Paused - Provider: Juliet Ditmars, METAL WASHING MACHINE OPERATOR)192 (Restarted - Provider: Juliet Ditmars, METAL WASHING MACHINE OPERATOR)194 (Paused - Provider: Juliet Ditmars, METAL WASHING MACHINE OPERATOR)194 (Restarted - Provider: Juliet Ditmars, METAL WASHING MACHINE OPERATOR)2019 (Paused - Provider: Juliet Ditmars, METAL WASHING MACHINE OPERATOR)2019 (Restarted - Provider: Juliet Ditmars, METAL WASHING MACHINE OPERATOR)2026 (Rate/Dose Verify - Provider: Juliet Ditmars, METAL WASHING MACHINE OPERATOR)2027 (Paused - Provider: Juliet Ditmars, METAL WASHING MACHINE OPERATOR)2027 (Restarted - Provider: Juliet Ditmars, METAL WASHING MACHINE OPERATOR)2103 (Rate/Dose Change - Provider: Juliet Ditmars, METAL WASHING MACHINE OPERATOR)2122 (Rate/Dose Change - Provider: Juliet Ditmars, METAL WASHING MACHINE OPERATOR)2221 (Paused - Provider: Juliet Ditmars, METAL WASHING MACHINE OPERATOR)2221 (Restarted - Provider: Juliet Ditmars, METAL WASHING MACHINE OPERATOR)2223 (Paused - Provider: Juliet Ditmars, METAL WASHING MACHINE OPERATOR)2224 (Restarted - Provider: Juliet Ditmars, METAL WASHING MACHINE OPERATOR)2339 (Paused - Provider: Juliet Ditmars, METAL WASHING MACHINE OPERATOR)2339 (Restarted - Provider: Juliet Ditmars, METAL WASHING MACHINE OPERATOR) 0002 (Paused - Provider: Juliet Ditmars, METAL WASHING MACHINE OPERATOR)0003 (Restarted - Provider: Juliet Ditmars, METAL WASHING MACHINE OPERATOR)0107 (Paused - Provider: Juliet Ditmars, METAL WASHING MACHINE OPERATOR)0107 (Restarted - Provider: Juliet Ditmars, METAL WASHING MACHINE OPERATOR)0115 (Rate/Dose Verify - Provider: Juliet Ditmars, METAL WASHING MACHINE OPERATOR)0330 (Rate/Dose Verify - Provider: Juliet Ditmars, METAL WASHING MACHINE OPERATOR)0346 (Rate/Dose Change - Provider: Juliet Ditmars, METAL WASHING MACHINE OPERATOR)0354 (Rate/Dose Change - Provider: Juliet Ditmars, METAL WASHING MACHINE OPERATOR)0550 (Rate/Dose Verify - Provider: Juliet Ditmars, METAL WASHING MACHINE OPERATOR)0555 (Paused - Provider: Suzette Enrique RN)0555 (Restarted [...] Johnson RN)1405 (Given - Provider: Quincy Johnson RN)1822 (Given - Provider: Quincy Johnson RN)2227 (Given - Provider: Alina Yun RN) 0239 (Given - Provider: Margaret Mcginnis RN)0701 (Given - Provider: Abhay Begum RN)1123 (Given - Provider: Suzette Enrique RN)1550 (Given - Provider: Suzette Enrique RN)2025 (Given - Provider: Jacinta Long, SHALOM) 0054 (Given - Provider: Jacinta Long, SHALOM)0455 (Given - Provider: Jacinta Long, SHALOM) iopamidoL (ISOVUE-370) 76 % injection 75 mL [...] 1159 1405 (Given - Provider: Quincy Johnson RN)2134 (Given - Provider: uJliet Wang LPN) 1123 (Given - Provider: Suzette Enrique RN)2025 (Given - Provider: Jacinta Long RN) 0239 (Given - Provider: Juliet Wang LPN)0837 (Given - Provider: Suzette Enrique RN) senna (SENOKOT) tablet 8.6 mg 8.6 mg (1 tablet), Oral, 2 times daily PRN, constipation, Starting on Thu12/04/21 at 0515 sodium chloride (PF) (NS) 0.9 % contrast line flush 10 mL (COMPLETED) 10 mL, Intravenous, Once in imaging, contrast, Per retention manager (Radiology) for line patency check prior to contrast administration, Starting on Thu12/04/21 at 0120, For 1 dose 0135 (Given - Provider: Heydi Escalante, TECHNOLOGIST) sodium chloride (PF) (NS) 0.9 % contrast line flush 80 mL (COMPLETED) 80 mL, Intravenous, Once in imaging, contrast, Per retention manager (Radiology), Starting on Thu12/04/21 at 0120, For 1 dose, 30 mL BEFORE contrast administration 50 mL AFTER contrast administration 0135 (Given - Provider: Heydi Escalante, TECHNOLOGIST) sodium [...] 121 Minutes, ONCE, On Rohini 07/10/22 at 2034, For 1 dose 2151 (New Bag - Provider: Debora Beckford, RN)2299 (Stopped - Provider: Scarlet Samayoa RN) HYDROmorphone [...] specifically ordered. 2152 (Given - Provider: Rin Beckford, SHALOM) HYDROmorphone (DILAUDID) injection 1 mg (COMPLETED) HYDROmorphone (DILAUDID) 1.5mg IV is equivalent to morphine 10mg IV, 1 mg, IntraMUSCular, ONCE, 1 dose, On Rohini 07/10/22 at 2304, If oral and IV narcotics ordered, use oral first and only use IV if oral is ineffective or cannot take oral. Do Not give oral and IV within 1 hour of each other unless specifically ordered. 2305 (Given - Provider: Fady Samayoa RN) ondansetron (ZOFRAN) injection 4 mg (COMPLETED) 4 mg, IntraVENous, ONCE, 1 dose, On Rohini 07/10/22 at 2035 2153 (Given - Provider: Rin Beckford RN) trimethobenzamide (TIGAN) injection 200 mg (COMPLETED) 200 mg, IntraMUSCular, ONCE, 1 dose, On Rohini 07/10/22 at 2311 2331 (Given - Provider: Fady Samayoa, SHALOM) Scheduled Medication Order 08/11/2022 08/12/2022 08/13/2022 0.9 % sodium chloride bolus (COMPLETED) 1,000 mL (8.82 mL/kg), IntraVENous, at 495.9 mL/hr, Administer over 121 Minutes, ONCE, On Thu08/13/22 at 2116, For 1 dose 2200 (New Bag - Prov ider: Tristan Beth RN)235 (Stopped - Provider: Valerio Maxwell RN) HYDROmorphone [...] On 08/24/22 at 2204, For 1 dose 232 (New Bag - Provider: Shannon Stevenson RN) 001 (Stopped - Provider: Shannon Stevenson RN) famotidine (PEPCID) 20 mg in sodium chloride (PF) 0.9 % 10 mL injection (COMPLETED) 20 mg, IntraVENous, ONCE, 1 dose, On 08/24/22 at 2204, IV Push over minimum of 2 minutes - Dilute with 10 mL NS 2308 (Given - Provider: Madeline Viveros, SHALOM) HYDROmorphone (DILAUDID) injection 1 mg (COMPLETED) 1 mg, IntraVENous, ONCE, 1 dose, On 08/24/22 at 2317, If oral and IV narcotics [...] at 2204 2308 (Given - Provider: Madeline Viveros RN) oxyCODONE-acetaminophen (PERCOCET) 5-325 MG per tablet [...] from all sources in 24 hours., Post-op 2210 (Given - Provider: Loraine Lord RN) 031 (Given - Provider: Loraine Lord RN)0837 (Given - Provider: Carmella Bailey RN)1408 (Given - Provider: Carmella Bailey RN)2029 (Due) ARIPiprazole (ABILIFY) tablet 15 mg 15 [...] (7.5 mg) based on the ordered dose. 221 (Given - Provider: Loraine Lord RN) 0837 [...] 2209 (Given - Provider: Loraine Lord RN) 2099 (Due) DULoxetine (CYMBALTA) extended release capsule 60 [...] Over 349 4 Units and notify physician 2149 (Not Given - Provider: Loraine Lord RN - Reason: Order parameters not met) 2099 [...] TIMES DAILY, First dose on Thu06/30/23 at 2099, Until Discontinued, Hold for SBP less than 90. Hold for HR less than 65 2210 (Given - Provider: Loraine Lord RN) 0839 (Given - Provider: Carmella Bailey RN)2099 (Due) mupirocin (BACTROBAN) 2 % ointment Each Nostril, 3 TIMES DAILY, First dose on Thu06/30/23 at 2099 2099 (Due) 1119 (Not Given - Provider: Carmella [...] dose on Thu06/30/23 at 2100, Until Discontinued 221 (Given - Provider: Loraine Lord RN) 2099 [...] or Central Line = 20 mL/lumen, Post-op 215 (Not Given - Provider: Loraine Lord RN - Reason: IV Fluid Infusing) 0847 (Given - Provider: Carmella Bailey, SHALOM)2100 (Due) vancomycin (VANCOCIN) 2,000 mg in sodium chloride 0.9 % 500 mL IVPB (COMPLETED) 2,000 mg, IntraVENous, LANDS RESOURCE MANAGER TO O.R., 1 dose, On Thu06/30/23 at 1130, Antimicrobial Indications: Surgical Prophylaxis, Pre-op (day of surgery) 1210 (New Bag - Provider: DAVID Mcguire) Continuous Medication Order 06/29/2023 06/30/2023 07/01/2023 0.9 % sodium chloride infusion IntraVENous, at 100 mL/hr, CONTINUOUS, Starting on Thu06/30/23 at 2030, D/C IV and all IV medications when eating well postoperative., Post-op 220 (New Bag - Provider: Loraine Lord RN) 0700 (Stopped - Provider: Carmella Bailey, SHALOM) lactated ringers IV soln infusion (CANCELED) IntraVENous, at 125 mL/hr, CONTINUOUS, Starting on Thu06/30/23 at 1515, PACU only 1706 (New Bag - Provider: Vicenta Rodriguez, SHALOM) 0700 (Stopped - Provider: Carmella Bailey, SHALOM) PRN Medication Order 06/29/2023 06/30/2023 07/01/2023 0.9 [...] Discontinued, Dizziness 2233 (Given - Provider: Loraine Lord RN) ondansetron (ZOFRAN) injection 4 mg 4 mg, [...] RN)1010 (See Alternative - Provider: Carmella Bailey RN)153 (See Alternative - Provider: Carmella Bailey RN) [...] Starting on Thu06/30/23 at 2001, Until Discontinued, Muscle spasms 2210 (Given - Provider: Loraine Lord RN) 0848 (Given - Provider: Carmella Bailey RN) [...] - Provider: Suhail Peterson RN) 2099 (Due) BUPivacaine (MARCAINE) 0.5 % injection 150 [...] dose. 1356 (Given - Provider: Vivek Guerin RN)2126 (Given - Provider: Suhail Peterson RN) 09 (Given - Provider: Adelita Pak, RN)1400 (Due)2100 (Due) DULoxetine (CYMBALTA) extended release capsule 60 mg 60 mg, Oral, DAILY, First dose on Thu07/08/23 at 1300, Until Discontinued, Do not crush or break. May add contents of capsule to apple juice or apple sauce, but not chocolate. 1356 (Given - Provider: Vivek Guerin RN) 09 (Given - Provider: Adelita Pak, SHALOM) insulin lispro (HUMALOG) injection vial 0-4 Units 0-4 Units, SubCUTAneous, NIGHTLY, First dose on Thu07/08/23 at 2100, Until Discontinued, If continuous tube feedings/TPN/NPO, give correction dose based on result, no reduction in dose. If eating or bolus tube feeding: Corrective Bedtime Algorithm Glucose: Dose: 70-299 No Insulin 300-349 4 Units Over 349 4 Units and notify physician 2133 (Not Given - Provider: Suhail Peterson, RN - Reason: Order parameters not met) [...] Guerin RN) 0904 (Given - Provider: Adelita Pak RN - Comment: blood sugar 325)1105 (Given - Provider: Adelita Pak, RN - Comment: notified dr. naraghi. berrios to give)1700 (Due) insulin lispro (HUMALOG) injection [...] Adelita Pak RN)1104 (Given - Provider: Adelita Pak, RN)1700 (Due) metoprolol tartrate (LOPRESSOR) tablet 50 mg 50 mg, Oral, 2 TIMES DAILY, First dose on Thu07/08/23 at 1300, Until Discontinued 1356 (Given - Provider: Vivek Guerin RN)2127 (Given - Provider: Suhail Peterson, RN) 0903 (Given - Provider: Adelita Pak RN)2100 (Due) pantoprazole (PROTONIX) tablet 40 mg 40 mg, Oral, DAILY, First dose on Thu07/08/23 at 1300, Until Discontinued, Do not crush or break. 1356 (Given - Provider: Vivek Guerin RN) 0903 (Given - Provider: Adelita Pak RN) rosuvastatin (CRESTOR) tablet 20 mg 20 mg, Oral, NIGHTLY, First dose on Thu07/08/23 at 2100, Until Discontinued 2126 (Given - Provider: Suhail Peterson RN) 2099 (Due) traZODone (DESYREL) tablet 200 mg 200 mg, Oral, NIGHTLY, First dose on Thu07/08/23 at 2200, Until Discontinued 2220 (Given - Provider: Suhail Peterson RN) 2099 (Due) triamcinolone acetonide (KENALOG-40) injection 40 mg [...] 24 hours. 1815 (Given - Provider: Vivek Guerin, RN) 0157 (Given - Provider: Suhail Peterson, RN)1105 (Given - Provider: Adelita Pak, RN) Linked Groups Order Group 1: dextrose [...]
Care Teams (unrecognized sec tion and content) Team Status: Active Member Role Status Dates Skye Jones APRN ORGAN PIPE MAKER MET[employer]-C Primary Care Provider Activ e Team Status: Inactive Member Role Status Dates Skye Jones APRN ORGAN PIPE MAKER [employer]-C Primary Care Provider Activ e Start: July 07, 2023 End: July 08, 2023 Daphnie Gudino MD Emergency Provider Active Start: July 07, 2023 End: July 08, 2023 Team Status: Active Member Role Status Dates Skye Jones APRN ORGAN PIPE MAKER [employer]-C Primary Care Provider Activ e Start: July 23, 2023 Maxim Pinto MD Admit Provider, Atte nding Provider, Other Provider Active Start: July 23, 2023 Team Status: Inactive Member Role Status Dates Skye Jones , OAKES MACHINE OPERATOR [employer] P[employer]-C Primary Care Provider Activ e Start: August 19, 2023 End: August 19, 2023 Damian Carpenter MD Emergency Provider Active Star t: August 19, 2023 End: August 19, 2023 Team Status: Active Member Role Status Dates Skye Jones , OAKES MACHINE OPERATOR [employer] Primary Care Provider Activ e Start: May 15, 2023 Braulio Dukes MD Attending Provider Active Start: May 15, 2023 Team Status: Inactive Member Role Status Dates Skye Jones , OAKES MACHINE OPERATOR [employer]C Primary Care Provider Activ e Omi Watkins , DO Attending Provider Active Team Status: Inactive Member Role Status Dates Skye Jones , OAKES MACHINE OPERATOR [employer]C Primary Care Provider Activ e Vivek Ceballos Jr, MD Emergency Provider Active Team Status: Inactive Member Role Status Dates Skye Jones , OAKES MACHINE OPERATOR [employer]IPE MAK[employer]C Primary Care Provider Activ e Gurwinder Philippe , DO Emergency Provider Active Team Status: Inactive Member Role Status Dates Skye Jones , OAKES MACHINE OPERATOR [employer]C Primary Care Provider Activ e Giacomo West , PA-C Emergency Provider Active Team Status: Inactive Member Role Status Dates Skye Jones , OAKES MACHINE OPERATOR [employer]GAN PIPE MAKER MET[employer]-C Primary Care Provider Activ e Harry Sprague MD Emergency Provider Active Team Status: Inactive Member Role Status Dates Skye Jones , OAKES MACHINE OPERATOR [employer]GAN PIPE MAKER MET[employer]-C Primary Care Provider Activ e Tristan Pyle , DO Emergency Provider Active Team Status: Active Member Role Status Dates Skye Jones , OAKES MACHINE OPERATOR [employer]IPE MA[employer]ER [employer]-C Primary Care Provider Activ e Omi Watkins , DO Attending Provider Active Team Status: Inactive Member Role Status Dates Skye Jones , OAKES MACHINE OPERATOR [employer]GAN PIPE MAKER [employer]-C Primary Care Provider Activ e Tim Feng DO Emergency Provider Active Team Status: Inactive Member Role Status Dates Skye Jones , OAKES MACHINE OPERATOR [employer]IPE MA[employer]C Primary Care Provider Activ e Yehuda Herrera , Emergency Provider Active Rehabilitation Program Coordinator Relationship Specialty Start Date End Date No, Physician [facility] PCP - General 01/26/21 Rehabilitation Program Coordinator Relationship Specialty Start Date End Date Skye Jones APRN - [facility] [employer] [address] [place] [address] PCP - General Family Nurse Practitioner 08/12/21 Rehabilitation Program Coordinator Relationship Specialty Start Date End Date Skye Jones Levi, [employer] [address] [place] [address] PCP - General Nurse Practitioner 12/03/21 Team Status: Inactive Member Role Status Dates Skye Jones , OAKES MACHINE OPERATOR [employer] MAKER [employer]C Primary Care Provider Activ levi Lantigua , DO RES Active Valerie Pyle PA-C Emergency Provider Active Team Status: Inactive Member Role Status Dates Skye Jones , OAKES MACHINE OPERATOR [employer]IPE MAK[employer]C Primary Care Provider Activ levi Felipe , DO RES Active Vivek Ceballos Jr, MD Emergency Provider Active Team Status: Inactive Member Role Status Dates Skye Jones , OAKES MACHINE OPERATOR [employer] MA[employer]ER [employer] Primary Care Provider Activ levi Vega , DO Emergency Provider Active Rehabilitation Program Coordinator Relationship Specialty Start Date End Date Skye Jones Levi OAKES MACHINE OPERATOR - [facility] [address] [place] [address] PCP - General Family Nurse Practitioner 08/12/21 Rehabilitation Program Coordinator Relationship Specialty Start Date End Date Skye Jones OAKES MACHINE OPERATOR - [facility] [address] [place] [address] PCP - General Family Nurse Practitioner 08/12/21 Rehabilitation Program Coordinator Relationship Specialty Start Date End Date Skye Jones OAKES MACHINE OPERATOR - [facility] [address] [place] [address] PCP - General Family Nurse Practitioner 08/12/21 Rehabilitation Program Coordinator Relationship Specialty Start Date End Date Skye Jones OAKES MACHINE OPERATOR - [facility] [address] [place] [address] PCP - General Family Nurse Practitioner 08/12/21 Rehabilitation Program Coordinator Relationship Specialty Start Date End Date Skye Jones OAKES MACHINE OPERATOR - [facility] [address] [place] [address] PCP - General Family Nurse Practitioner 08/12/21 Rehabilitation Program Coordinator Relationship Specialty Start Date End Date Skye Jones, OAKES MACHINE OPERATOR - [employer] [address] [place] [address] PCP - General Family Nurse Practitioner 08/12/21 Team Status: Inactive Member Role Status Dates Skye Jones , OAKES MACHINE OPERATOR [employer]GAN PIPE MAKER MET[employer]-C Primary Care Provider Activ e Tari Medina , MANAGER TRANSMISSION- Emergency Provider Active Team Status: Inactive Member Role Status Dates Skye Jones , OAKES MACHINE OPERATOR [employer] MAKER [employer]-C Primary Care Provider Activ e Eileen Lowry , OAKES MACHINE OPERATOR Emergency Provider Active Team Status: Inactive Member Role Status Dates Skye Jones , OAKES MACHINE OPERATOR [employer] MA[employer] Primary Care Provider Activ e Damian Carpenter [...] MD Other Provider Active Anamaria Camara , OAKES MACHINE OPERATOR Other Provider Active Beto Zuniga , DO [...] Active Rehan Maxwell MD Other Provider Active Harry Chapman , DO Other Provider Active Jessica Saavedra MD Other Provider Active Sandor Ramos MD Other Provider Active Juana Wells , ORGAN PIPE MAKER [employer]AL-C Other Provider Active Miko العلي MD Other Provider Active Law Melendez MD Other Provider Active Salvatore Peñaloza MD Other Provider Active Kristi Craig , DO Other Provider Active Vikash Garcia , DO Other Provider Active Moises Mendoza , DO Other Provider Active Lindsey Petty OAKES MACHINE OPERATOR Other Provider Active Julio C Rajput , DO Other Provider Active Hilaria Escobar MD Other Provider Active Carie Carpenter OAKES MACHINE OPERATOR Other Provider Active Gisel Guerrero OAKES MACHINE OPERATOR Other Provider Active Evy Brady MD Other Provider Active Krystyna Cazares , RN Other Provider Active Team Status: Inactive Member Role Status Dates Skye Jones , OAKES MACHINE OPERATOR [employer]GAN PIPE MAKER MET[employer]-C Primary Care Provider Activ e Damian Carpenter [...] MD Other Provider Active Anamaria Camara , OAKES MACHINE OPERATOR Other Provider Active Beto Zuniga , DO [...] Active Rehan Maxwell MD Other Provider Active Harry Chapman , DO Other Provider Active Jessica Saavedra MD Other Provider Active Sandor Ramos MD Other Provider Active Juana Wells , ORGAN PIPE MAKER METAL-C Other Provider Active Miko العلي MD Other Provider Active Law Melendez MD Other Provider Active Salvatore Peñaloza MD Other Provider Active Kristi Craig , DO Other Provider Active Vikash Garcia , DO Other Provider Active Moises Mendoza , DO Other Provider Active Lindsey Petty OAKES MACHINE OPERATOR Other Provider Active Julio C Rajput , DO Other Provider Active Hilaria Escobar MD Other Provider Active Carie Carpenter OAKES MACHINE OPERATOR Other Provider Active Gisel Guerrero , OAKES MACHINE OPERATOR Other Provider Active Evy Brady MD Other Provider Active Krystyna Cazares , RN Other Provider Active Maxim Pinto MD Attending Provider Active Yves Dukes MD Admit Provider Active Team Status: Active Member Role Status Dates Skye Jones , OAKES MACHINE OPERATOR [employer]GAN PIPE MAKER MET[employer]-C Primary Care Provider Activ levi Watkins MD Attending Provider Active Team Status: Active Member Role Status Dates Skye Jones , OAKES MACHINE OPERATOR [employer]GAN PIPE MAKER [employer]-C Primary Care Provider Activ levi Dukes MD Attending Provider Active Team Status: Inactive Member Role Status Dates Skye Jones , OAKES MACHINE OPERATOR ORGAN PIPE MAKER METAL-C Primary Care Provider Activ levi Dukes MD Admit Provider, Attending Pr ovider Active Marylou Arnold , SHALOM Other Provider Active Chuyita Zaman , SHALOM Other Provider Active Genna Del Cid , RN Other Provider Active Deneen Sparrow , SHALOM Other Provider Active Keren Flores , SHALOM Other Provider Active Yulissa Cuenca , SHALOM Other Provider Active Augusto Batista MD Other Provider Active Anamaria Camara , OAKES MACHINE OPERATOR Other Provider Active Beto Zuniga , DO [...] Active Rehan Maxwell MD Other Provider Active Harry Chapman , DO Other Provider Active Jessica Saavedra MD Other Provider Active Sandor Ramos MD Other Provider Active Juana Wells , ORGAN PIPE MAKER METAL-C Other Provider Active Miko العلي MD Other Provider Active Law Melendez MD Other Provider Active Deacon Corrales MD Other Provider Active Salvatore Peñaloza MD Other Provider Active Kristi Craig , DO Other Provider Active Vikash Garcia , DO Other Provider Active Moises Mendoza , DO Other Provider Active Lindsey Petty OAKES MACHINE OPERATOR Other Provider Active Julio C Rajput , DO Other Provider Active Hilaria Escobar MD Other Provider Active Carie Carpenter , OAKES MACHINE OPERATOR Other Provider Active Gisel Guerrero , OAKES MACHINE OPERATOR Other Provider Active Evy Brady MD Other Provider Active Fei [place] MD Other Provider Active Krystyna Cazares RN Other Provider Active Team Status: Inactive Member Role Status Dates Skye Jones APRN ORGAN PIPE MAKER [employer]-C Primary Care Provider Activ levi Pinto MD Admit Provider, Attending Provider Active Team Status: Inactive Member Role Status Dates Skye Jones , PEE ORGAN PIPE MAKER METAL-C Primary Care Provider Activ levi Dukes MD Admit Provider, Attending Pr ovider Active Team Status: Active Member Role Status Dates Skye Jones APRN ORGAN PIPE MAKER [employer]-C Primary Care Provider Activ levi Ceballos Jr, MD Emergency Provider Active Yves Dukes MD Admit Provider, Attending Pr ovider Active Team Status: Inactive Member Role Status Dates Skye Jones APRN ORGAN PIPE MAKER [employer]-C Primary Care Provider Activ levi Ceballos Jr, MD Emergency Provider Active Yves Dukes MD Admit Provider, Attending Pr ovider Active Team Status: Inactive Member Role Status Dates Skye Jones APRN ORGAN PIPE MAKER [employer]-C Primary Care Provider Activ levi Watkins MD Attending Provider Active Team Status: Inactive Member Role Status Dates Skye Jones APRN ORGAN PIPE MAKER METAL-C Primary Care Provider Tamie Dukes MD Admit Provider Active Maxim Pinto MD Attending Provider Active Rehabilitation Program Coordinator Relationship Specialty Start Date End Date Skye Jones BELKIS SimsN - [facility] [employer] [address] [place], [place] [id number] PCP - General Family Nurse Practitioner 08/12/21 Team Status: Inactive Member Role Status Dates Skye Jones APRN ORGAN PIPE MAKER METAL-C Primary Care Provider Activ e Daphnie Gudino MD Emergency Provider Active Rehabilitation Program Coordinator Relationship Specialty Start Date End Date Skye Jones OAKES MACHINE OPERATOR - [employer] [address] [place] [address] PCP - General Family Nurse Practitioner 08/12/21 [...] may be documented in an alternate section FOR RECORDS PERTAINING TO PATIENTS WHO [...] BE BASED ON THE PRIMARY CLINICAL RECORDS. [facility] provides no warranty or guarantee of the accuracy or completeness of information in this document.
--- NOTE | 2023-09-05 22:10 | ED.BACK1 ---
HPI - Back Pain/Injury General Chief Complaint: Back Pain/Injury Stated Complaint: BACK PAIN Time Seen by Provider: 09/05/23 21:48 Source: patient Mode of arrival: walk-in Limitations: no limitations History of Present Illness HPI Narrative: presents complaining of right lower back pain in the kidney area. States it started early this AM and has continued. No hematuria or dysuria. No nausea or vomiting. No associated chest pain or dyspnea Related Data Home Medications Medication Instructions Recorded Confirmed gabapentin 600 mg tablet 600 mg PO Q8H 12/30/22 08/13/23 insulin aspart U-100 100 unit/mL 35 unit subcut TID 12/30/22 08/13/23 (3 mL) subcutaneous pen (Novolog FlexPen U-100 Insulin aspart) metoprolol tartrate 25 mg tablet 50 mg PO Q12H 12/30/22 08/13/23 rosuvastatin 20 mg tablet 20 mg PO BEDTIME 12/30/22 08/13/23 tizanidine 4 mg tablet 4 mg PO Q8H PRN spasms 12/30/22 08/13/23 trazodone 100 mg tablet 200 mg PO BEDTIME 12/30/22 08/13/23 olanzapine 5 mg tablet 5 mg PO DAILY 01/17/23 08/13/23 duloxetine 60 mg capsule,delayed 60 mg PO BID 07/19/23 08/13/23 release (Cymbalta) dulaglutide 0.75 mg/0.5 mL 0.75 mg subcut .2 times week 07/21/23 08/13/23 subcutaneous pen injector (Trulicity) insulin glargine 100 unit/mL (3 20 unit subcut QPM 07/21/23 08/13/23 mL) subcutaneous pen (Lantus Solostar U-100 Insulin) meclizine 25 mg tablet 25 mg PO TID PRN dizziness 07/21/23 08/13/23 pantoprazole 40 mg tablet,delayed 40 mg PO DAILY 07/21/23 08/13/23 release albuterol sulfate 90 mcg/actuation inhalation 08/13/23 aerosol inhaler aripiprazole 20 mg tablet mg 08/13/23 buspirone 15 mg tablet mg 08/13/23 celecoxib 200 mg capsule mg 08/13/23 hydroxyzine pamoate 50 mg capsule mg 02/15/24 ibuprofen 800 mg tablet mg 08/13/23 levofloxacin 500 mg tablet mg 08/13/23 lidocaine 5 % topical patch patch 08/13/23 Previous Rx's Medication Instructions Recorded meclizine 50 mg tablet (Antivert) 50 mg PO BID PRN dizziness #20 tabs 03/01/23 polyethylene glycol 3350 17 gram 17 g PO DAILY 14 days #14 ea 07/19/23 oral powder packet (Miralax) promethazine 25 mg tablet 25 mg PO BID PRN nausea and 08/07/23 vomiting #7 tabs Allergies Allergy/AdvReac Type Severity Reaction Status Date / Time melon Allergy Severe Anaphylaxis Verified 09/05/23 21:47 aspirin Allergy Unknown Verified 09/05/23 21:47 fentanyl Allergy Unknown Verified 09/05/23 21:47 ketorolac [From Toradol] Allergy Unknown Verified 09/05/23 21:47 meperidine [From Demerol] Allergy Unknown Verified 09/05/23 21:47 morphine Allergy Unknown Verified 09/05/23 21:47 nalbuphine [From Nubain] Allergy Unknown Verified 09/05/23 21:47 Penicillins Allergy Unknown Verified 09/05/23 21:47 Review of Systems ROS Status of ROS 10 or more systems reviewed and unremarkable except as noted in history and below [facility] Social History Smoking status: Never smoker Exam Constitutional Vital Signs, click to edit/add: Last Vital Signs Temp 98.1 F 09/05/23 21:48 Pulse 93 H 09/05/23 21:48 Resp 16 09/05/23 21:48 BP 168/111 H 09/05/23 21:48 Pulse Ox 97 09/05/23 21:48 Common normals: no apparent distress, average body habitus, oriented x3, no limitations, healthy appearing, alert and well nourished [facility] Common normals: normocephalic and head/scalp atraumatic Eye Common normals: EOMs intact bilaterally and conjunctivae normal Respiratory Common normals: normal respiratory effort, no use of accessory muscles and clear to auscultation bilaterally Cardio Common normals: regular rate, regular rhythm, S1 normal heart sound and S2 normal heart sound GI Common normals: Normal to inspection, nondistended, normoactive bowel sounds present, soft to palpation and non-tender Back & Pelvis Other: right CVA tenderness Extremity Common normals: normal to inspection and full ROM Neuro Common normals: oriented x3, CN's II-XII intact bilaterally, moves all extremities and no focal motor deficits Psych Appearance: grossly normal Course Vital Signs Vital signs: Vital Signs Temperature 98.1 F 09/05/23 21:48 Pulse Rate 93 H 09/05/23 21:48 Respiratory Rate 16 09/05/23 21:48 Blood Pressure 168/111 H 09/05/23 21:48 Pulse Oximetry 97 09/05/23 21:48 Temperature 98.1 F 09/05/23 21:48 Pulse Rate 93 H 09/05/23 21:48 Respiratory Rate 16 09/05/23 21:48 Blood Pressure 168/111 H 09/05/23 21:48 Pulse Oximetry 97 09/05/23 21:48 MDM - Back Pain/Injury MDM Narrative Medical decision making narrative: patient presents complaining of right CVA pain. States past kidney stones. Past visits for the same complaint without findings of obstructing stones and microscopic hematuria. Multiple past neg. CTs. xray today with mod. constipation which has also been seen on past visits. Patient advised that she continues to have hematuria and should followup with her Urologist . She did not want to follow up with our Urology group. she was offered muscle relaxants and Lidoderm patch for her CVA pain but states she has these at home. Discharged home stable clinically and advised to follow up with her doctors Lab Data Labs: Lab Results 09/05/23 09/05/23 Range/Units 22:00 22:30 WBC 6.5 (4.0-11.0) 10^3/uL RBC 3.98 L (4.20-5.40) 10^6/uL Hgb 11.8 L (12.0-16.0) g/dL Hct 37.3 (36.0-48.0) % MCV 93.7 (81.0-99.0) fL MCH 29.6 (26.7-34.0) pg MCHC 31.6 (29.9-35.2) g/dL RDW 12.7 (11.0-15.0) % Plt Count 170 (150-450) 10^3/uL MPV 8.6 L (9.5-13.5) fL Neut % (Auto) 53.1 (43.0-75.0) % Lymph % (Auto) 32.8 (20.5-60.0) % Person % (Auto) 8.4 (1.7-12.0) % Eos % (Auto) 4.3 (0.9-7.0) % Baso % (Auto) 1.1 (0.2-2.0) % Neut # (Auto) 3.5 (1.4-6.5) 10^3/uL Lymph # (Auto) 2.1 (1.2-3.8) 10^3/uL Person # (Auto) 0.6 (0.3-0.8) 10^3/uL Eos # (Auto) 0.3 (0.0-0.7) 10^3/uL Baso # (Auto) 0.1 (0.0-0.1) 10^3/uL Abs Immat Gran (auto) 0.02 (0.00-0.03) 10^3/uL Imm/Tot Granulo (auto) 0.3 (0.0-0.5) % Sodium 138 (136-145) mmol/L Potassium 4.0 (3.5-5.1) mmol/L Chloride 103 (98-107) mmol/L Carbon Dioxide 28.9 (21.0-32.0) mmol/L Anion Gap 10.1 BUN 17.0 (7.0-18.0) mg/dL Creatinine 0.84 (0.55-1.02) mg/dL Est GFR ( Amer) >60 (>=60) Est GFR (Non-Af Amer) >60 (>=60) BUN/Creatinine Ratio 20.2 Glucose 211 H (74-106) mg/dL Lactate 1.4 (0.4-2.0) mmol/L Calcium 9.2 (8.5-10.1) mg/dL Total Bilirubin 0.2 (0.2-1.0) mg/dL AST 24 (15-37) U/L ALT 38 (14-59) U/L Alkaline Phosphatase 88 (46-116) U/L Troponin I High Sens <4.0 L (4.0-51.3) pg/mL Total Protein 7.1 (6.4-8.2) g/dL Albumin 3.0 L (3.4-5.0) g/dL Globulin 4.1 g/dL Albumin/Globulin Ratio 0.7 Lipase 36.0 (16.0-77.0) U/L Urine Color Yellow (YELLOW) Urine Clarity Clear (CLEAR) Urine pH 5.5 (5.0-9.0) Ur Specific Wendell >=1.030 A (1.005-1.025) Urine Protein Negative (NEG/TRACE) mg/dL Urine Glucose (UA) Negative (NEGATIVE) mg/dL Urine Ketones Trace A (NEGATIVE) mg/dL Urine Occult Blood Large A (NEGATIVE) Urine Nitrite Negative (NEGATIVE) Urine Bilirubin Negative (NEGATIVE) Urine Urobilinogen 0.2 (0.2-1.0) EU/dL Ur Leukocyte Esterase Negative (NEGATIVE) Urine RBC 20-50 A (0-2) #/HPF Urine WBC 0-2 A (NONE SEEN) #/HPF Ur Squamous Epith Cells Rare (NONE/RARE) #/LPF Ur Transition Epith Cell Rare A (NONE SEEN) #/LPF Urine Crystals None seen (None Seen) #/HPF Urine Bacteria None seen (NONE SEEN) #/HPF Urine Casts None seen (NONE SEEN) #/LPF Urine Mucus Small A (NONE SEEN) Ur Culture Indicated? No Discharge Plan Discharge Stand Alone Forms: Portal Instructions Chief Complaint: Back Pain/Injury Clinical Impression: Acute right flank pain, Hematuria Patient Disposition: Home, Self-Care Prescriptions / Home Meds: No Action olanzapine 5 mg tablet 5 mg PO DAILY Rx Instructions: HS duloxetine [Cymbalta] 60 mg capsule,delayed release(DR/EC) 60 mg PO BID polyethylene glycol 3350 [Miralax] 17 gram powder in packet 17 g PO DAILY 14 Days Qty: 14 0RF Trulicity 0.75 mg/0.5 mL pen injector 0.75 mg SUBCUT .2 times week insulin glargine [Lantus Solostar U-100 Insulin] 100 unit/mL (3 mL) insulin pen 20 unit SUBCUT QPM meclizine 25 mg tablet 25 mg PO TID PRN (Reason: dizziness) pantoprazole 40 mg tablet,delayed release (DR/EC) 40 mg PO DAILY promethazine 25 mg tablet 25 mg PO BID PRN (Reason: nausea and vomiting) Qty: 7 0RF celecoxib 200 mg capsule ibuprofen 800 mg tablet hydroxyzine pamoate 50 mg capsule lidocaine 5 % adhesive patch,medicated levofloxacin 500 mg tablet albuterol sulfate 90 mcg/actuation HFA aerosol inhaler INHALATION buspirone 15 mg tablet aripiprazole 20 mg tablet gabapentin 600 mg tablet 600 mg PO Q8H insulin aspart U-100 [Novolog FlexPen U-100 Insulin] 100 unit/mL (3 mL) insulin pen 35 unit SUBCUT TID Patient Comments: plus sliding scale metoprolol tartrate 25 mg tablet 50 mg PO Q12H rosuvastatin 20 mg tablet 20 mg PO BEDTIME tizanidine 4 mg tablet 4 mg PO Q8H PRN (Reason: spasms) trazodone 100 mg tablet 200 mg PO BEDTIME meclizine [Antivert] 50 mg tablet 50 mg PO BID PRN (Reason: dizziness) Qty: 20 0RF Instructions: Hematuria (ED), Flank Pain (ED) Additional Instructions: follow up with your family doctor in a couple of days and with your urologist Referrals: Physician,Non-Staff, MD [Primary Care Provider] - 1 week
--- NOTE | 2023-09-05 22:18 | XR_ITS ---
The [address] [address] Patient Name: GISEL PAT MRN: [id number] date: 1975 Sex: F Assigned Patient Location: ER Current Patient Location: ER Accession/Order Number: [id number] Exam Date: 09/05/2023 22:30 Report Date: 09/05/2023 23:08 At the request of: HOMERO DE LA ROSA Procedure: XR abdomen min 2V EXAM: PLAIN FILM OF THE ABDOMEN HISTORY: Abdominal pain. COMPARISON: None. TECHNIQUE: 5 views of the abdomen/pelvis submitted for review. FINDINGS: Lines and Tubes: Clips are seen in the right upper quadrant Free air: None. The bowel gas pattern is nonobstructive. Moderate retention of stool. There are no abnormal calcifications. However, evaluation of the renal shadows is limited due to overlying bowel gas. No portal venous air. Osseous structures do not demonstrate any acute abnormality. XR/XR abdomen min 2V IMPRESSION: 1. Nonobstructive bowel gas pattern. 2. Moderate retention of stool. Electronically authenticated by: LEAH HOANG Date: 09/05/2023 23:08
[2023-09-05 22:41] LABS: Basophils Absolute Auto 0.1 10^3/uL (0.0-0.1); Basophils Percent Auto 1.1 % (0.2-2.0); Eosinophils Absolute Auto 0.3 10^3/uL (0.0-0.7); Eosinophils Percent Auto 4.3 % (0.9-7.0); Hematocrit 37.3 % (36.0-48.0); Hemoglobin 11.8 g/dL (12.0-16.0); Immature Granulocytes Abs Auto 0.02 10^3/uL (0.00-0.03); Immature Granulocytes Pct Auto 0.3 % (0.0-0.5); Lymphocytes Absolute Auto 2.1 10^3/uL (1.2-3.8); Lymphocytes Percent Auto 32.8 % (20.5-60.0); Mean Corpuscular HGB Conc 31.6 g/dL (29.9-35.2); Mean Corpuscular Hemoglobin 29.6 pg (26.7-34.0); Mean Corpuscular Volume 93.7 fL (81.0-99.0); Mean Platelet Volume 8.6 fL (9.5-13.5); Monocytes Absolute Auto 0.6 10^3/uL (0.3-0.8); Monocytes Percent Auto 8.4 % (1.7-12.0); Neutrophils Absolute Auto 3.5 10^3/uL (1.4-6.5); Neutrophils Percent Auto 53.1 % (43.0-75.0); Platelet Count 170 10^3/uL (150-450); Red Blood Count 3.98 10^6/uL (4.20-5.40); Red Cell Distribution Width 12.7 % (11.0-15.0); White Blood Count 6.5 10^3/uL (4.0-11.0)
[2023-09-05 22:42] LABS: Bilirubin Urine NEGATIVE (NEGATIVE); Blood Urine LARGE (NEGATIVE); Clarity Urine CLEAR (CLEAR); Color Urine YELLOW (YELLOW); Glucose Urine UA NEGATIVE (NEGATIVE); Ketones Urine TRACE mg/dL (NEGATIVE); Leukocyte Esterase Urine NEGATIVE (NEGATIVE); Nitrite Urine NEGATIVE (NEGATIVE); Protein Urine NEGATIVE (NEG/TRACE); Specific Gravity Urine >=1.030 (1.005-1.025); Urobilinogen Urine 0.2 EU/dL (0.2-1.0); pH Urine 5.5 (5.0-9.0)
[2023-09-05 22:44] LABS: Urine Microscopic Indicated YES
[2023-09-05 22:58] LABS: RBC Urine 20-50 #/HPF (0-2); WBC Urine 0-2 #/HPF (NONE SEEN)
[2023-09-05] MEDS: ONDANSETRON PF 4 MG/2 ML VIAL IV (22:58)
[2023-09-05 22:59] LABS: Bacteria Urine NONE SEEN #/HPF (NONE SEEN); Cast Seen? NONE SEEN #/LPF (NONE SEEN); Crystals Seen? None Seen #/HPF (None Seen); Mucus Urine SMALL (NONE SEEN); Squamous Epithelial Cell Urine RARE #/LPF (NONE/RARE); Transitional Epi Cells Urine RARE #/LPF (NONE SEEN); Urine Culture Indicated NO
[2023-09-05 23:00] LABS: Alanine Aminotransferase 38 U/L (14-59); Albumin Globulin Ratio 0.7; Alkaline Phosphatase 88 U/L (46-116); Anion Gap 10.1; Aspartate Amino Transferase 24 U/L (15-37); BUN Creatinine Ratio 20.2; Bilirubin Total 0.2 mg/dL (0.2-1.0); Calcium 9.2 mg/dL (8.5-10.1); Carbon Dioxide 28.9 mmol/L (21.0-32.0); Chloride 103 mmol/L (98-107); Estimated GFR (African America >60 (>=60); Estimated GFR (Non-African Ame >60 (>=60); Globulin 4.1 g/dL; Glucose 211 mg/dL (74-106); Lactate/Lactic Acid 1.4 mmol/L (0.4-2.0); Sodium 138 mmol/L (136-145); Total Protein 7.1 g/dL (6.4-8.2); Troponin I High Sensitivity <4.0 pg/mL (4.0-51.3)
[2023-09-05 23:33] VITALS: BP 154/98; PULSE 88; RESP 16; TEMP 36.8; O2SAT 99
== END 2023-09-05 23:35 | disposition home or self-care (01) ==
PROVIDERS: Emergency Provider Internal Medicine
DX: R10.9 Unspecified abdominal pain (principal); R31.9 Hematuria, unspecified; Z79.899 Other long term (current) drug therapy; Z79.4 Long term (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 of insulin; Z87.442 Personal history of urinary calculi
CPT/HCPCS: 36415; 74019; 80053; 81001; 83605; 83690; 84484; 85025; 96374; 99285

== ENCOUNTER 2023-09-09 20:38 | Emergency (ER) | payer OTHER, SELFPAY ==
[2023-09-09 20:44] VITALS: BP 147/90; PULSE 103; RESP 18; TEMP 36.7; O2SAT 95; BMI 43.9
[2023-09-09 21:09] LABS: Glucometer 366 mg/dL (74-106)
--- NOTE | 2023-09-09 21:19 | ED.GENADUL1 ---
HPI - General Adult General Chief complaint: Recheck/Abnormal Lab/Rx Stated complaint: HIGH SUGAR READINGS Time Seen by Provider: 09/09/23 20:50 Source: patient Mode of arrival: walk-in Limitations: no limitations History of Present Illness HPI narrative: Patient complainsof elevated blood glucose today. She is an insulin dependent diabetic who takes Lantus 2ounits each night and Novolog 35units TID before meals. She got a cortisone injection in the right knee yesterday and noted herblood sugars were higher today. She did not give herself any additional units of novolog today. She has not yet taken her Lantus. Related Data Home Medications Medication Instructions Recorded Confirmed gabapentin 600 mg tablet 600 mg PO Q8H 12/30/22 08/13/23 insulin aspart U-100 100 unit/mL 35 unit subcut TID 12/30/22 08/13/23 (3 mL) subcutaneous pen (Novolog FlexPen U-100 Insulin aspart) metoprolol tartrate 25 mg tablet 50 mg PO Q12H 12/30/22 08/13/23 rosuvastatin 20 mg tablet 20 mg PO BEDTIME 12/30/22 08/13/23 tizanidine 4 mg tablet 4 mg PO Q8H PRN spasms 12/30/22 08/13/23 trazodone 100 mg tablet 200 mg PO BEDTIME 12/30/22 08/13/23 olanzapine 5 mg tablet 5 mg PO DAILY 01/17/23 08/13/23 duloxetine 60 mg capsule,delayed 60 mg PO BID 07/19/23 08/13/23 release (Cymbalta) dulaglutide 0.75 mg/0.5 mL 0.75 mg subcut .2 times week 07/21/23 08/13/23 subcutaneous pen injector (Trulicity) insulin glargine 100 unit/mL (3 20 unit subcut QPM 07/21/23 08/13/23 mL) subcutaneous pen (Lantus Solostar U-100 Insulin) meclizine 25 mg tablet 25 mg PO TID PRN dizziness 07/21/23 08/13/23 pantoprazole 40 mg tablet,delayed 40 mg PO DAILY 07/21/23 08/13/23 release albuterol sulfate 90 mcg/actuation inhalation 08/13/23 aerosol inhaler aripiprazole 20 mg tablet mg 08/13/23 buspirone 15 mg tablet mg 08/13/23 celecoxib 200 mg capsule mg 08/13/23 hydroxyzine pamoate 50 mg capsule mg 08/13/23 ibuprofen 800 mg tablet mg 08/13/23 levofloxacin 500 mg tablet mg 08/13/23 lidocaine 5 % topical patch patch 08/13/23 Previous Rx's Medication Instructions Recorded meclizine 50 mg tablet (Antivert) 50 mg PO BID PRN dizziness #20 tabs 03/01/23 polyethylene glycol 3350 17 gram 17 g PO DAILY 14 days #14 ea 07/19/23 oral powder packet (Miralax) promethazine 25 mg tablet 25 mg PO BID PRN nausea and 08/07/23 vomiting #7 tabs Allergies Allergy/AdvReac Type Severity Reaction Status Date / Time melon Allergy Severe Anaphylaxis Verified 09/09/23 20:47 aspirin Allergy Unknown Verified 09/09/23 20:47 fentanyl Allergy Unknown Verified 09/09/23 20:47 ketorolac [From Toradol] Allergy Unknown Verified 09/09/23 20:47 meperidine [From Demerol] Allergy Unknown Verified 09/09/23 20:47 morphine Allergy Unknown Verified 09/09/23 20:47 nalbuphine [From Nubain] Allergy Unknown Verified 09/09/23 20:47 Penicillins Allergy Unknown Verified 09/09/23 20:47 [facility] Social History Smoking status: Never smoker Exam Narrative Exam Narrative: Nurses notes and vital signs reviewed and patient is not hypoxic. Afebrile General: Well-appearing and in no apparent distress. Skin: Warm, dry, no pallor noted. Eye: Pupils are equal, round and EOMI. No scleral icterus. Ears, Nose, Mouth, and Throat: Oral mucosa is moist Cardiovascular: Regular Rate and Rhythm without murmur, gallop or rub. Respiratory: No accessory muscle use or respiratory distress. Lungs are clear to auscultation, no wheezing, rales or rhonchi Back: Right lower paralumbar soft tissue tenderness without costovertebral angle tenderness GI: Abdomen is soft, non-distended. Normal bowel sounds. No tenderness to palpation. No rebound, guarding, or rigidity noted. Neurological: A&O x4. No cranial nerve dysfunction observed. No truncal ataxia. Moves all extremities. Sensation intact. Psychiatric: Cooperative and interactive. Normal mood and affect. Constitutional Vital Signs, click to edit/add: Last Vital Signs Temp 98.1 F 09/09/23 20:44 Pulse 103 H 09/09/23 20:44 Resp 18 09/09/23 20:44 BP 147/90 H 09/09/23 20:44 Pulse Ox 95 09/09/23 20:44 O2 Del Method Room Air 09/09/23 20:44 Course Vital Signs Vital signs: Vital Signs Temperature 98.1 F 09/09/23 20:44 Pulse Rate 103 H 09/09/23 20:44 Respiratory Rate 18 09/09/23 20:44 Blood Pressure 147/90 H 09/09/23 20:44 Pulse Oximetry 95 09/09/23 20:44 Oxygen Delivery Method Room Air 09/09/23 20:44 Temperature 98.1 F 09/09/23 20:44 Pulse Rate 103 H 09/09/23 20:44 Respiratory Rate 18 09/09/23 20:44 Blood Pressure 147/90 H 09/09/23 20:44 Pulse Oximetry 95 09/09/23 20:44 Oxygen Delivery Method Room Air 09/09/23 20:44 Medical Decision Making MDM Narrative Medical decision making narrative: Patient given reassurance that the cortisone injection likely caused her sugars to elevate. She was instructed that she can take an additional 5 units of NovoLog 3 times daily if her sugars remain elevated before meals. Tonight in the emergency department she was given 10 units of subcutaneous regular insulin and discharged home with instructions to take her Lantus as scheduled at the prescribed dose. She was also instructed to drink extra water tonight. Regarding her difficulty getting [facility], she will need to call her PCP. Lab Data Lab results reviewed: Yes I reviewed the patient's lab results Labs: Lab Results 09/09/23 Range/Units 21:09 POC Glucose 366 H (74-106) mg/dL Discharge Plan Discharge Stand Alone Forms: Portal Instructions Chief Complaint: Recheck/Abnormal Lab/Rx Clinical Impression: Hyperglycemia due to type 1 diabetes mellitus Patient Disposition: Home, Self-Care Time of Disposition Decision: 21:23 Prescriptions / Home Meds: No Action olanzapine 5 mg tablet 5 mg PO DAILY Rx Instructions: HS duloxetine [Cymbalta] 60 mg capsule,delayed release(DR/EC) 60 mg PO BID polyethylene glycol 3350 [Miralax] 17 gram powder in packet 17 g PO DAILY 14 Days Qty: 14 0RF Trulicity 0.75 mg/0.5 mL pen injector 0.75 mg SUBCUT .2 times week insulin glargine [Lantus Solostar U-100 Insulin] 100 unit/mL (3 mL) insulin pen 20 unit SUBCUT QPM meclizine 25 mg tablet 25 mg PO TID PRN (Reason: dizziness) pantoprazole 40 mg tablet,delayed release (DR/EC) 40 mg PO DAILY promethazine 25 mg tablet 25 mg PO BID PRN (Reason: nausea and vomiting) Qty: 7 0RF celecoxib 200 mg capsule ibuprofen 800 mg tablet hydroxyzine pamoate 50 mg capsule lidocaine 5 % adhesive patch,medicated levofloxacin 500 mg tablet albuterol sulfate 90 mcg/actuation HFA aerosol inhaler INHALATION buspirone 15 mg tablet aripiprazole 20 mg tablet gabapentin 600 mg tablet 600 mg PO Q8H insulin aspart U-100 [Novolog FlexPen U-100 Insulin] 100 unit/mL (3 mL) insulin pen 35 unit SUBCUT TID Patient Comments: plus sliding scale metoprolol tartrate 25 mg tablet 50 mg PO Q12H rosuvastatin 20 mg tablet 20 mg PO BEDTIME tizanidine 4 mg tablet 4 mg PO Q8H PRN (Reason: spasms) trazodone 100 mg tablet 200 mg PO BEDTIME meclizine [Antivert] 50 mg tablet 50 mg PO BID PRN (Reason: dizziness) Qty: 20 0RF Instructions: Diabetic Hyperglycemia (ED) Referrals: Physician,Non-Staff, MD [Primary Care Provider] - 1 week
[2023-09-09] MEDS: INSULIN REGULAR 300 UNITS/3 ML 10 UNIT SUBQ (21:27)
== END 2023-09-09 21:37 | disposition home or self-care (01) ==
PROVIDERS: Emergency Provider Emergency Medicine
DX: E10.65 Type 1 diabetes mellitus with hyperglycemia (principal); Z79.4 Long term (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 of insulin; Z79.899 Other long term (current) drug therapy
CPT/HCPCS: 36415; 99284

== ENCOUNTER 2023-09-23 21:15 | Emergency (ER) | payer OTHER, SELFPAY ==
[2023-09-23 21:43] VITALS: BP 134/89; PULSE 98; RESP 16; TEMP 36.7; O2SAT 95; BMI 47.9
[2023-09-23 22:55] VITALS: BP 160/98; PULSE 89; RESP 18; TEMP 36.8; O2SAT 96
--- NOTE | 2023-09-23 23:45 | XR_ITS ---
The [address] [address] Patient Name: GISEL PAT MRN: [id number] date: 1975 Sex: F Assigned Patient Location: ER Current Patient Location: ER Accession/Order Number: [id number] Exam Date: 09/23/2023 23:50 Report Date: 09/24/2023 01:10 At the request of: NOVA MARKER Procedure: XR abdomen min 2V EXAM: XR abdomen min 2V HISTORY: right flank pain, hx kidneystones COMPARISON: CT abdomen and pelvis 08/13/2023 , 09/05/2023 TECHNIQUE: Supine AP views of the abdomen and pelvis FINDINGS: Prior cholecystectomy. Nondilated small and large bowel loops are identified. No definite stones are seen along the urinary tract. Bones demonstrate mild degenerative changes. Soft tissues are grossly unremarkable. XR/XR abdomen min 2V IMPRESSION: Nonobstructive bowel gas pattern. No definite stones are seen involving the urinary tract. Electronically authenticated by: RAMON RAMIREZ Date: 09/24/2023 01:10
[2023-09-23 23:56] LABS: Basophils Absolute Auto 0.1 10^3/uL (0.0-0.1); Basophils Percent Auto 1.1 % (0.2-2.0); Eosinophils Absolute Auto 0.3 10^3/uL (0.0-0.7); Eosinophils Percent Auto 3.7 % (0.9-7.0); Hemoglobin 12.2 g/dL (12.0-16.0); Immature Granulocytes Abs Auto 0.02 10^3/uL (0.00-0.03); Immature Granulocytes Pct Auto 0.3 % (0.0-0.5); Lymphocytes Absolute Auto 2.8 10^3/uL (1.2-3.8); Lymphocytes Percent Auto 38.7 % (20.5-60.0); Mean Corpuscular Hemoglobin 29.3 pg (26.7-34.0); Mean Corpuscular Volume 88.7 fL (81.0-99.0); Mean Platelet Volume 8.8 fL (9.5-13.5); Monocytes Absolute Auto 0.6 10^3/uL (0.3-0.8); Monocytes Percent Auto 8.8 % (1.7-12.0); Neutrophils Absolute Auto 3.4 10^3/uL (1.4-6.5); Neutrophils Percent Auto 47.4 % (43.0-75.0); Platelet Count 200 10^3/uL (150-450); Red Blood Count 4.17 10^6/uL (4.20-5.40); Red Cell Distribution Width 12.5 % (11.0-15.0); White Blood Count 7.2 10^3/uL (4.0-11.0)
[2023-09-23 23:58] LABS: Bilirubin Urine NEGATIVE (NEGATIVE); Blood Urine LARGE (NEGATIVE); Clarity Urine SL CLOUDY (CLEAR); Color Urine YELLOW (YELLOW); Glucose Urine UA >=1000 mg/dL (NEGATIVE); Ketones Urine TRACE mg/dL (NEGATIVE); Leukocyte Esterase Urine NEGATIVE (NEGATIVE); Nitrite Urine NEGATIVE (NEGATIVE); Protein Urine NEGATIVE (NEG/TRACE); Specific Gravity Urine >=1.030 (1.005-1.025); Urobilinogen Urine 0.2 EU/dL (0.2-1.0); pH Urine 5.5 (5.0-9.0)
[2023-09-23 23:59] LABS: Anion Gap 9.7; BUN Creatinine Ratio 25.3; Calcium 9.3 mg/dL (8.5-10.1); Carbon Dioxide 30.1 mmol/L (21.0-32.0); Chloride 103 mmol/L (98-107); Estimated GFR (African America >60 (>=60); Estimated GFR (Non-African Ame >60 (>=60); Glucose 160 mg/dL (74-106); Potassium 3.8 mmol/L (3.5-5.1); Sodium 139 mmol/L (136-145)
[2023-09-24] MEDS: HYDROMORPHONE HCL 1 MG/ML CARTRIDGE IV (00:03)
[2023-09-24] MEDS: ONDANSETRON PF 4 MG/2 ML VIAL IV (00:03)
[2023-09-24 00:08] LABS: WBC Urine 0-2 #/HPF (NONE SEEN)
[2023-09-24 00:09] LABS: Bacteria Urine NONE SEEN #/HPF (NONE SEEN); Cast Seen? NONE SEEN #/LPF (NONE SEEN); Crystals Seen? None Seen #/HPF (None Seen); Mucus Urine NONE SEEN (NONE SEEN); RBC Urine >100 #/HPF (0-2); Squamous Epithelial Cell Urine FEW #/LPF (NONE/RARE)
[2023-09-24 00:10] LABS: Urine Culture Indicated NO
[2023-09-24] MEDS: 0.9 % SODIUM CHLORIDE 1,000 ML 1000 ML IV (00:27)
[2023-09-24 00:34] VITALS: BP 111/68; PULSE 92; RESP 16; O2SAT 97
--- NOTE | 2023-09-24 01:11 | ED.GENADUL1 ---
HPI - General Adult General Chief complaint: Urogenital-Female Stated complaint: Right Flank Pain, Nausea Time Seen by Provider: 09/23/23 22:05 Source: patient Mode of arrival: walk-in Limitations: no limitations History of Present Illness HPI narrative: 48-year-old female who is well-known to this emergency department who often presents for evaluation of concerns for kidney stone presents stating that she is having flank pain with nausea and vomiting. She states she passed a kidney stone earlier today. She has not had a fever. She denies any diarrhea. He states that her son brought her to the emergency department. Related Data Home Medications ?Medication ?Instructions ?Recorded ?Confirmed gabapentin 600 mg tablet 600 mg PO Q8H 12/30/22 08/13/23 insulin aspart U-100 100 unit/mL 35 unit subcut TID 12/30/22 08/13/23 (3 mL) subcutaneous pen (Novolog FlexPen U-100 Insulin aspart) metoprolol tartrate 25 mg tablet 50 mg PO Q12H 12/30/22 08/13/23 rosuvastatin 20 mg tablet 20 mg PO BEDTIME 12/30/22 08/13/23 tizanidine 4 mg tablet 4 mg PO Q8H PRN spasms 12/30/22 08/13/23 trazodone 100 mg tablet 200 mg PO BEDTIME 12/30/22 08/13/23 olanzapine 5 mg tablet 5 mg PO DAILY 01/17/23 08/13/23 duloxetine 60 mg capsule,delayed 60 mg PO BID 07/19/23 08/13/23 release (Cymbalta) dulaglutide 0.75 mg/0.5 mL 0.75 mg subcut .2 times week 07/21/23 08/13/23 subcutaneous pen injector (Trulicity) insulin glargine 100 unit/mL (3 20 unit subcut QPM 07/21/23 08/13/23 mL) subcutaneous pen (Lantus Solostar U-100 Insulin) meclizine 25 mg tablet 25 mg PO TID PRN dizziness 07/21/23 08/13/23 pantoprazole 40 mg tablet,delayed 40 mg PO DAILY 07/21/23 08/13/23 release albuterol sulfate 90 mcg/actuation inhalation 08/13/23 aerosol inhaler aripiprazole 20 mg tablet mg 08/13/23 buspirone 15 mg tablet mg 08/13/23 celecoxib 200 mg capsule mg 08/13/23 hydroxyzine pamoate 50 mg capsule mg 08/13/23 ibuprofen 800 mg tablet mg 08/13/23 levofloxacin 500 mg tablet mg 08/13/23 lidocaine 5 % topical patch patch 08/13/23 Previous Rx's ?Medication ?Instructions ?Recorded meclizine 50 mg tablet (Antivert) 50 mg PO BID PRN dizziness #20 tabs 03/01/23 polyethylene glycol 3350 17 gram 17 g PO DAILY 14 days #14 ea 07/19/23 oral powder packet (Miralax) promethazine 25 mg tablet 25 mg PO BID PRN nausea and 08/07/23 vomiting #7 tabs Allergies Allergy/AdvReac Type Severity Reaction Status Date / Time melon Allergy Severe Anaphylaxis Verified 09/23/23 21:47 aspirin Allergy Unknown Verified 09/23/23 21:47 fentanyl Allergy Unknown Verified 09/23/23 21:47 ketorolac [From Toradol] Allergy Unknown Verified 09/23/23 21:47 meperidine [From Demerol] Allergy Unknown Verified 09/23/23 21:47 morphine Allergy Unknown Verified 09/23/23 21:47 nalbuphine [From Nubain] Allergy Unknown Verified 09/23/23 21:47 Penicillins Allergy Unknown Verified 09/23/23 21:47 Review of Systems ROS Status of ROS 10 or more systems reviewed and unremarkable except as noted in history and below [facility] Social History Smoking status: Never smoker Exam Narrative Exam Narrative: Nurses note and vital signs reviewed and patient is not hypoxic. General: Alert, nontoxic obese adult female resting comfortably on the stretcher, she does not appear to be in any distress, no active vomiting or dry heaves Skin: Warm, dry, no pallor noted. There is no rash noted. Head: Normocephalic, atraumatic Eye: Normal conjunctiva, no drainage, EOMI. PERRL Ears, Nose, Mouth, and Throat: oral mucosa is moist. Nares patent. Mouth without vesicles. Ear canals patent. Tm's without Erythema Cardiovascular: Regular Rate and Rhythm Respiratory: Patient is in no distress, no accessory muscle use, lungs are clear to auscultation, no wheezing, rales or rhonchi Back: non-tender, no CVA tenderness bilaterally to percussion. GI: Normal bowel sounds, no tenderness to palpation, no masses appreciated. No rebound, guarding, or rigidity noted. Musculoskeletal: The patient has no evidence of calf tenderness, no pitting edema, symmetrical pulses noted bilaterally Neurological: A&O x4, normal speech Psychiatric: Cooperative Constitutional Vital Signs, click to edit/add: Last Vital Signs Temp 98.2 F 09/23/23 22:55 Pulse 92 H 09/24/23 00:34 Resp 16 09/24/23 00:34 BP 111/68 09/24/23 00:34 Pulse Ox 97 09/24/23 00:34 O2 Del Method Room Air 09/24/23 00:34 Course Vital Signs Vital signs: Vital Signs Temperature 98.1 F 09/23/23 21:43 Pulse Rate 98 H 09/23/23 21:43 Respiratory Rate 16 09/23/23 21:43 Blood Pressure 134/89 09/23/23 21:43 Pulse Oximetry 95 09/23/23 21:43 Oxygen Delivery Method Room Air 09/23/23 21:43 Temperature 98.2 F 09/23/23 22:55 Pulse Rate 92 H 09/24/23 00:34 Respiratory Rate 16 09/24/23 00:34 Blood Pressure 111/68 09/24/23 00:34 Pulse Oximetry 97 09/24/23 00:34 Oxygen Delivery Method Room Air 09/24/23 00:34 Medical Decision Making MDM Narrative Medical decision making narrative: This 48 year old female with multiple medical problems including kidney stone diabetes is seen in this emergency department frequently for flank pain presents for evaluation of recurrent flank pain with nausea vomiting. She states that she passed a kidney stone earlier today. On arrival her vital signs are stable. She does not appear to be in any distress. She has not had any vomiting in emergency department. Neither is placed and she was medicated with IV fluids, Dilaudid and Zofran. She denied any improvement after the Dilaudid for pain she typically like to get 2 doses of Dilaudid however I declined to give her additional doses of Dilaudid after the 1st dose. She has normal white count and hemoglobin. Electrolytes are reviewed. Her glucose is elevated At 160. Her urine is positive for large blood which typically is without any sign of infection. She has had multiple CT scans in the past so a KUB was ordered. The KUB does not show any kidney stones or dilated ureters. This was discussed with her. She was given a dose of Percocet prior to being discharge. Days that she has a urologist that she sees in [place] through [facility]. Medical Records Medical records narrative: The [address] [address] XRay Report Signed Patient: GISEL PAT MR#: [id number] : 1975 Acct:[id number] Age/Sex: 48 / F ADM Date: 09/23/23 Loc: ER Attending Dr: Ordering Physician: Grace Servin Date of Service: 09/23/23 Procedure(s): XR abdomen min 2V Accession Number(s): [id number] cc: Grace Servin; Physician,Non-Staff M.DSorin~ The [address] [address] Patient Name: GISEL PAT MRN: [id number] date: 1975 Sex: F Assigned Patient Location: ER Current Patient Location: ER Accession/Order Number: [id number] Exam Date: 09/23/2023 23:50 Report Date: 09/24/2023 01:10 At the request of: GRACE SERVIN Procedure: XR abdomen min 2V EXAM: XR abdomen min 2V HISTORY: right flank pain, hx kidneystones COMPARISON: CT abdomen and pelvis 08/13/2023 , 09/05/2023 TECHNIQUE: Supine AP views of the abdomen and pelvis FINDINGS: Prior cholecystectomy. Nondilated small and large bowel loops are identified. No definite stones are seen along the urinary tract. Bones demonstrate mild degenerative changes. Soft tissues are grossly unremarkable. XR/XR abdomen min 2V IMPRESSION: Nonobstructive bowel gas pattern. No definite stones are seen involving the urinary tract. Electronically authenticated by: RAMON RAMIREZ Date: 09/24/2023 01:10 Lab Data Lab results reviewed: Yes I reviewed the patient's lab results Labs: Lab Results 09/23/23 09/23/23 Range/Units 23:28 23:30 WBC 7.2 (4.0-11.0) 10^3/uL RBC 4.17 L (4.20-5.40) 10^6/uL Hgb 12.2 (12.0-16.0) g/dL Hct 37.0 (36.0-48.0) % MCV 88.7 (81.0-99.0) fL MCH 29.3 (26.7-34.0) pg MCHC 33.0 (29.9-35.2) g/dL RDW 12.5 (11.0-15.0) % Plt Count 200 (150-450) 10^3/uL MPV 8.8 L (9.5-13.5) fL Neut % (Auto) 47.4 (43.0-75.0) % Lymph % (Auto) 38.7 (20.5-60.0) % [place] % (Auto) 8.8 (1.7-12.0) % Eos % (Auto) 3.7 (0.9-7.0) % Baso % (Auto) 1.1 (0.2-2.0) % Neut # (Auto) 3.4 (1.4-6.5) 10^3/uL Lymph # (Auto) 2.8 (1.2-3.8) 10^3/uL [place] # (Auto) 0.6 (0.3-0.8) 10^3/uL Eos # (Auto) 0.3 (0.0-0.7) 10^3/uL Baso # (Auto) 0.1 (0.0-0.1) 10^3/uL Abs Immat Gran (auto) 0.02 (0.00-0.03) 10^3/uL Imm/Tot Granulo (auto) 0.3 (0.0-0.5) % Sodium 139 (136-145) mmol/L Potassium 3.8 (3.5-5.1) mmol/L Chloride 103 (98-107) mmol/L Carbon Dioxide 30.1 (21.0-32.0) mmol/L Anion Gap 9.7 BUN 21.0 H (7.0-18.0) mg/dL Creatinine 0.83 (0.55-1.02) mg/dL Est GFR ( Amer) >60 (>=60) Est GFR (Non-Af Amer) >60 (>=60) BUN/Creatinine Ratio 25.3 Glucose 160 H (74-106) mg/dL Calcium 9.3 (8.5-10.1) mg/dL Urine Color Yellow (YELLOW) Urine Clarity Sl cloudy (CLEAR) Urine pH 5.5 (5.0-9.0) Ur Specific [place] >=1.030 A (1.005-1.025) Urine Protein Negative (NEG/TRACE) mg/dL Urine Glucose (UA) >=1000 A (NEGATIVE) mg/dL Urine Ketones Trace A (NEGATIVE) mg/dL Urine Occult Blood Large A (NEGATIVE) Urine Nitrite Negative (NEGATIVE) Urine Bilirubin Negative (NEGATIVE) Urine Urobilinogen 0.2 (0.2-1.0) EU/dL Ur Leukocyte Esterase Negative (NEGATIVE) Urine RBC >100 A (0-2) #/HPF Urine WBC 0-2 A (NONE SEEN) #/HPF Ur Squamous Epith Cells Few A (NONE/RARE) #/LPF Urine Crystals None seen (None Seen) #/HPF Urine Bacteria None seen (NONE SEEN) #/HPF Urine Casts None seen (NONE SEEN) #/LPF Urine Mucus None seen (NONE SEEN) Ur Culture Indicated? No Discharge Plan Discharge Stand Alone Forms: Portal Instructions Chief Complaint: Urogenital-Female Clinical Impression: Kidney stone, Right flank pain Patient Disposition: Home, Self-Care Time of Disposition Decision: 01:18 Condition: Good Prescriptions / Home Meds: No Action olanzapine 5 mg tablet 5 mg PO DAILY Rx Instructions: HS duloxetine [Cymbalta] 60 mg capsule,delayed release(DR/EC) 60 mg PO BID polyethylene glycol 3350 [Miralax] 17 gram powder in packet 17 g PO DAILY 14 Days Qty: 14 0RF Trulicity 0.75 mg/0.5 mL pen injector 0.75 mg SUBCUT .2 times week insulin glargine [Lantus Solostar U-100 Insulin] 100 unit/mL (3 mL) insulin pen 20 unit SUBCUT QPM meclizine 25 mg tablet 25 mg PO TID PRN (Reason: dizziness) pantoprazole 40 mg tablet,delayed release (DR/EC) 40 mg PO DAILY promethazine 25 mg tablet 25 mg PO BID PRN (Reason: nausea and vomiting) Qty: 7 0RF celecoxib 200 mg capsule ibuprofen 800 mg tablet hydroxyzine pamoate 50 mg capsule lidocaine 5 % adhesive patch,medicated levofloxacin 500 mg tablet albuterol sulfate 90 mcg/actuation HFA aerosol inhaler INHALATION buspirone 15 mg tablet aripiprazole 20 mg tablet gabapentin 600 mg tablet 600 mg PO Q8H insulin aspart U-100 [Novolog FlexPen U-100 Insulin] 100 unit/mL (3 mL) insulin pen 35 unit SUBCUT TID Patient Comments: plus sliding scale metoprolol tartrate 25 mg tablet 50 mg PO Q12H rosuvastatin 20 mg tablet 20 mg PO BEDTIME tizanidine 4 mg tablet 4 mg PO Q8H PRN (Reason: spasms) trazodone 100 mg tablet 200 mg PO BEDTIME meclizine [Antivert] 50 mg tablet 50 mg PO BID PRN (Reason: dizziness) Qty: 20 0RF Print Language: Ukrainian Instructions: Kidney Stones (ED), Low Oxalate Diet (ED), Flank Pain (ED) Referrals: Physician,Non-Staff, MD [Primary Care Provider] - 1 week
[2023-09-24] MEDS: OXYCODONE HCL/ACETAMINOPHEN 5MG/325MG 1 TAB PO (01:19)
[2023-09-24 01:25] VITALS: BP 111/69; PULSE 92; RESP 16; O2SAT 94
== END 2023-09-24 01:35 | disposition home or self-care (01) ==
PROVIDERS: Emergency Provider Emergency Medicine
DX: R10.9 Unspecified abdominal pain (principal); N20.0 Calculus of kidney; E11.9 Type 2 diabetes mellitus without complications; Z79.899 Other long term (current) drug therapy; Z79.4 Long term (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 of insulin; Z79.85 Long-term (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 of injectable non-insulin antidiabetic drugs
CPT/HCPCS: 36415; 74019; 80048; 81001; 85025; 96361; 96374; 96375; 99284; J1170

== ENCOUNTER 2023-10-01 18:57 | Emergency (ER) | payer OTHER, SELFPAY ==
[2023-10-01] VITALS (17 sets, daily range): BP systolic 95–139; BP diastolic 67–98; PULSE 98–110; TEMP 37; O2SAT 97; BMI 48.6
--- NOTE | 2023-10-01 19:09 | XR_ITS ---
The [address] [address] Patient Name: GISEL PAT MRN: [id number] date: 1975 Sex: F Assigned Patient Location: ER Current Patient Location: ED.MAIN Accession/Order Number: [id number] Exam Date: 10/01/2023 19:33 Report Date: 10/01/2023 20:11 At the request of: MARCELLA VINSON Procedure: XR knee LT 4V EXAM: XR knee LT 4V HISTORY: fall COMPARISON: None. TECHNIQUE: 4 views left knee FINDINGS: Mild degenerative changes of the left knee. No acute fracture or aggressive osseous abnormality. No joint effusion. XR/XR knee LT 4V IMPRESSION: Mild degenerative change of the left knee without acute osseous abnormality. Electronically authenticated by: JAYLA SANCHEZ Date: 10/01/2023 20:11
--- NOTE | 2023-10-01 19:10 | ED.LOWEXI1 ---
Documented by User: MONIKA Noel 10/01/23 22:10 HPI HPI - Extremity Injury (Lower) General Chief Complaint: Extremity Injury, Lower Stated Complaint: l lower extremity pain post fall, r kidney pain Time Seen by Provider: 10/01/23 19:05 Source: patient Mode of arrival: walk-in Limitations: no limitations History of Present Illness HPI Narrative: Patient is a 48-year-old female who is well-known to this emergency department, presents for evaluation of a left knee injury that occurred earlier today. She states she tripped going up a set of stairs and landed on her left knee. She denies any other associated injuries. Her right knee is currently in a knee immobilizer as she is due to have surgery and is currently under the care of orthopedic surgery for this. She is not concerned for . She denies any pain to the left foot or ankle. She is able to ambulate. No medications prior to arrival. Related Data Home Medications ?Medication ?Instructions ?Recorded ?Confirmed gabapentin 600 mg tablet 600 mg PO Q8H 12/30/22 08/13/23 insulin aspart U-100 100 unit/mL 35 unit subcut TID 12/30/22 08/13/23 (3 mL) subcutaneous pen (Novolog FlexPen U-100 Insulin aspart) metoprolol tartrate 25 mg tablet 50 mg PO Q12H 12/30/22 08/13/23 rosuvastatin 20 mg tablet 20 mg PO BEDTIME 12/30/22 08/13/23 tizanidine 4 mg tablet 4 mg PO Q8H PRN spasms 12/30/22 08/13/23 trazodone 100 mg tablet 200 mg PO BEDTIME 12/30/22 08/13/23 olanzapine 5 mg tablet 5 mg PO DAILY 01/17/23 08/13/23 duloxetine 60 mg capsule,delayed 60 mg PO BID 07/19/23 08/13/23 release (Cymbalta) dulaglutide 0.75 mg/0.5 mL 0.75 mg subcut .2 times week 07/21/23 08/13/23 subcutaneous pen injector (Trulicity) insulin glargine 100 unit/mL (3 20 unit subcut QPM 07/21/23 08/13/23 mL) subcutaneous pen (Lantus Solostar U-100 Insulin) meclizine 25 mg tablet 25 mg PO TID PRN dizziness 07/21/23 08/13/23 pantoprazole 40 mg tablet,delayed 40 mg PO DAILY 07/21/23 08/13/23 release albuterol sulfate 90 mcg/actuation 2 inh inhalation Q6H PRN shortness 08/13/23 10/01/23 aerosol inhaler of breath or wheezing aripiprazole 20 mg tablet 20 mg PO .qhs 08/13/23 10/01/23 buspirone 15 mg tablet mg 08/13/23 celecoxib 200 mg capsule mg 08/13/23 hydroxyzine pamoate 50 mg capsule mg 08/13/23 ibuprofen 800 mg tablet mg 08/13/23 levofloxacin 500 mg tablet mg 08/13/23 lidocaine 5 % topical patch patch 08/13/23 Previous Rx's ?Medication ?Instructions ?Recorded meclizine 50 mg tablet (Antivert) 50 mg PO BID PRN dizziness #20 tabs 03/01/23 polyethylene glycol 3350 17 gram 17 g PO DAILY 14 days #14 ea 07/19/23 oral powder packet (Miralax) promethazine 25 mg tablet 25 mg PO BID PRN nausea and 08/07/23 vomiting #7 tabs nabumetone 750 mg tablet 750 mg PO BID PRN pain #20 tabs 10/01/23 Allergies Allergy/AdvReac Type Severity Reaction Status Date / Time melon Allergy Severe Anaphylaxis Verified 10/01/23 19:03 aspirin Allergy Unknown Verified 10/01/23 19:03 fentanyl Allergy Unknown Verified 10/01/23 19:03 ketorolac [From Toradol] Allergy Unknown Verified 10/01/23 19:03 meperidine [From Demerol] Allergy Unknown Verified 10/01/23 19:03 morphine Allergy Unknown Verified 10/01/23 19:03 nalbuphine [From Nubain] Allergy Unknown Verified 10/01/23 19:03 Penicillins Allergy Unknown Verified 10/01/23 19:03 Opioid HPI Opioid Management Most Recent Pain and Opioid Data: Last Pain Scale 3 10/01/23 20:34 Last ED Pain Assessment 10/01/23 19:13 Last MAR Pain Assessment 10/01/23 19:27 Ur Phencyclidine Scrn Negative (NEGATIVE) 07/21/23 18:35 Review of Systems ROS Constitutional Denies: fever or chills Ears, nose, mouth, and throat Denies: throat pain or nasal congestion Cardiovascular Denies: chest pain Respiratory Denies: shortness of breath or cough Gastrointestinal Denies: nausea or vomiting Musculoskeletal Reports: extremity pain, joint pain and limited range of motion; Denies: back pain or neck pain Integumentary/Breast Denies: rash Neurological Denies: headache Hematologic/Lymphatic Denies: easy bruising or easy bleeding [facility] Social History Smoking status: Never smoker Exam Narrative Exam Narrative: Gen.: Awake, alert, in no distress Head: Normocephalic, atraumatic ENT: Moist mucous membranes Respiratory: No respiratory distress Extremities: Left knee with normal flexion and extension, exam is limited by body habitus. No appreciable ecchymosis or swelling noted, no joint effusion. Diffusely tender to palpation in the left anterior knee. Left ankle and foot with no swelling, normal flexion extension of the toes of the left foot. Right knee is in a knee immobilizer Psych: Normal mood and affect Neuro: No focal neuro deficit Skin: Warm, dry, intact Constitutional Vital Signs, click to edit/add: Last Vital Signs Temp 98.6 F 10/01/23 19:03 Pulse 110 H 10/01/23 19:03 Resp 18 10/01/23 19:03 BP 119/73 10/01/23 19:03 Pulse Ox 97 10/01/23 19:03 O2 Del Method Room Air 10/01/23 19:03 Course Vital Signs Vital signs: Vital Signs Temperature 98.6 F 10/01/23 19:03 Pulse Rate 110 H 10/01/23 19:03 Respiratory Rate 18 10/01/23 19:03 Blood Pressure 119/73 10/01/23 19:03 Pulse Oximetry 97 10/01/23 19:03 Oxygen Delivery Method Room Air 10/01/23 19:03 Temperature 98.6 F 10/01/23 19:03 Pulse Rate 110 H 10/01/23 19:03 Respiratory Rate 18 10/01/23 19:03 Blood Pressure 119/73 10/01/23 19:03 Pulse Oximetry 97 10/01/23 19:03 Oxygen Delivery Method Room Air 10/01/23 19:03 MDM - Extremity Injury (Lower) MDM Narrative Medical decision making narrative: At time of my evaluation, patient has only 1 focal medical complaint of injury to the left knee. She was medicated with [place] and sent for x-rays of the left knee which are unremarkable. While waiting for x-ray results, she began to complain of left anterior chest pain and dizziness. IV was established, labs drawn and EKG obtained. Labs are within normal limits although D-dimer is elevated and TSH is elevated. Patient continues to complain of chest pain and dizziness in the emergency department. She no longer has knee pain after [place] was administered. She will be discharged home to follow-up with her PCP. She has A heart score of 3 for her age and risk factors of obesity, diabetes and high blood pressure. She should follow with her PCP and return to the ER if symptoms change or worsen. Patient was reevaluated by attending physician prior to discharge, she was given education and reassurance. Medical Records Attestation: I reviewed the patient's medical records. Lab Data Attestation: I reviewed the patient's lab results. Imaging Data xr knee: Attestation: I have reviewed the pertinent imaging results. Radiologist's impression: ITS Impressions Knee X-Ray 10/01/23 19:09 IMPRESSION: Mild degenerative change of the left knee without acute osseous abnormality. Electronically authenticated by: JAYLA SANCHEZ Date: 10/01/2023 20:11 CT scan - chest: Attestation: I have reviewed the pertinent imaging results. Radiologist's impression: ITS Impressions Knee X-Ray 10/01/23 19:09 IMPRESSION: Mild degenerative change of the left knee without acute osseous abnormality. Electronically authenticated by: JAYLA SANCHEZ Date: 10/01/2023 20:11 Chest CTA 10/01/23 21:14 IMPRESSION: No central or segmental pulmonary embolism or acute abnormalities in chest. Electronically authenticated by: REAGAN JEFFERSON Date: 10/01/2023 22:01 ECG Data Attestation: I personally reviewed and interpreted this ECG as follows: (Sinus tachycardia at a rate of 100, no acute ST elevation or ectopy. EKG reviewed by attending physician) Discharge Plan Discharge Stand Alone Forms: Portal Instructions Chief Complaint: Extremity Injury, Lower Clinical Impression: Chest pain, Contusion of left knee Patient Disposition: Home, Self-Care Time of Disposition Decision: 22:08 Condition: Good Prescriptions / Home Meds: New nabumetone 750 mg tablet 750 mg PO BID PRN (Reason: pain) Qty: 20 0RF No Action olanzapine 5 mg tablet 5 mg PO DAILY Rx Instructions: HS duloxetine [Cymbalta] 60 mg capsule,delayed release(DR/EC) 60 mg PO BID polyethylene glycol 3350 [Miralax] 17 gram powder in packet 17 g PO DAILY 14 Days Qty: 14 0RF Trulicity 0.75 mg/0.5 mL pen injector 0.75 mg SUBCUT .2 times week insulin glargine [Lantus Solostar U-100 Insulin] 100 unit/mL (3 mL) insulin pen 20 unit SUBCUT QPM meclizine 25 mg tablet 25 mg PO TID PRN (Reason: dizziness) pantoprazole 40 mg tablet,delayed release (DR/EC) 40 mg PO DAILY promethazine 25 mg tablet 25 mg PO BID PRN (Reason: nausea and vomiting) Qty: 7 0RF celecoxib 200 mg capsule ibuprofen 800 mg tablet hydroxyzine pamoate 50 mg capsule lidocaine 5 % adhesive patch,medicated levofloxacin 500 mg tablet albuterol sulfate 90 mcg/actuation HFA aerosol inhaler 2 inh INHALATION Q6H PRN (Reason: shortness of breath or wheezing) buspirone 15 mg tablet aripiprazole 20 mg tablet 20 mg PO .qhs gabapentin 600 mg tablet 600 mg PO Q8H insulin aspart U-100 [Novolog FlexPen U-100 Insulin] 100 unit/mL (3 mL) insulin pen 35 unit SUBCUT TID Patient Comments: plus sliding scale metoprolol tartrate 25 mg tablet 50 mg PO Q12H rosuvastatin 20 mg tablet 20 mg PO BEDTIME tizanidine 4 mg tablet 4 mg PO Q8H PRN (Reason: spasms) trazodone 100 mg tablet 200 mg PO BEDTIME meclizine [Antivert] 50 mg tablet 50 mg PO BID PRN (Reason: dizziness) Qty: 20 0RF Print Language: Libyan Instructions: Chest Pain (ED), Knee Pain (ED) Referrals: Physician,Non-Staff, MD [Primary Care Provider] - 1 week Documented by User: Hiro Cohn 10/01/23 22:29 HPI HPI - Extremity Injury (Lower) General Chief Complaint: Extremity Injury, Lower Stated Complaint: l lower extremity pain post fall, r kidney pain Time Seen by Provider: 10/01/23 19:05 Related Data Home Medications ?Medication ?Instructions ?Recorded ?Confirmed gabapentin 600 mg tablet 600 mg PO Q8H 12/30/22 08/13/23 insulin aspart U-100 100 unit/mL 35 unit subcut TID 12/30/22 08/13/23 (3 mL) subcutaneous pen (Novolog FlexPen U-100 Insulin aspart) metoprolol tartrate 25 mg tablet 50 mg PO Q12H 12/30/22 08/13/23 rosuvastatin 20 mg tablet 20 mg PO BEDTIME 12/30/22 08/13/23 tizanidine 4 mg tablet 4 mg PO Q8H PRN spasms 12/30/22 08/13/23 trazodone 100 mg tablet 200 mg PO BEDTIME 12/30/22 08/13/23 olanzapine 5 mg tablet 5 mg PO DAILY 01/17/23 08/13/23 duloxetine 60 mg capsule,delayed 60 mg PO BID 07/19/23 08/13/23 release (Cymbalta) dulaglutide 0.75 mg/0.5 mL 0.75 mg subcut .2 times week 07/21/23 08/13/23 subcutaneous pen injector (Trulicity) insulin glargine 100 unit/mL (3 20 unit subcut QPM 07/21/23 08/13/23 mL) subcutaneous pen (Lantus Solostar U-100 Insulin) meclizine 25 mg tablet 25 mg PO TID PRN dizziness 07/21/23 08/13/23 pantoprazole 40 mg tablet,delayed 40 mg PO DAILY 07/21/23 08/13/23 release albuterol sulfate 90 mcg/actuation 2 inh inhalation Q6H PRN shortness 08/13/23 10/01/23 aerosol inhaler of breath or wheezing aripiprazole 20 mg tablet 20 mg PO .qhs 08/13/23 10/01/23 buspirone 15 mg tablet mg 08/13/23 celecoxib 200 mg capsule mg 08/13/23 hydroxyzine pamoate 50 mg capsule mg 08/13/23 ibuprofen 800 mg tablet mg 08/13/23 levofloxacin 500 mg tablet mg 08/13/23 lidocaine 5 % topical patch patch 08/13/23 Previous Rx's ?Medication ?Instructions ?Recorded meclizine 50 mg tablet (Antivert) 50 mg PO BID PRN dizziness #20 tabs 03/01/23 polyethylene glycol 3350 17 gram 17 g PO DAILY 14 days #14 ea 07/19/23 oral powder packet (Miralax) promethazine 25 mg tablet 25 mg PO BID PRN nausea and 08/07/23 vomiting #7 tabs nabumetone 750 mg tablet 750 mg PO BID PRN pain #20 tabs 10/01/23 Allergies Allergy/AdvReac Type Severity Reaction Status Date / Time melon Allergy Severe Anaphylaxis Verified 10/01/23 19:03 aspirin Allergy Unknown Verified 10/01/23 19:03 fentanyl Allergy Unknown Verified 10/01/23 19:03 ketorolac [From Toradol] Allergy Unknown Verified 10/01/23 19:03 meperidine [From Demerol] Allergy Unknown Verified 10/01/23 19:03 morphine Allergy Unknown Verified 10/01/23 19:03 nalbuphine [From Nubain] Allergy Unknown Verified 10/01/23 19:03 Penicillins Allergy Unknown Verified 10/01/23 19:03 Opioid HPI Opioid Management Most Recent Pain and Opioid Data: Last Pain Scale 3 10/01/23 20:34 Last ED Pain Assessment 10/01/23 19:13 Last MAR Pain Assessment 10/01/23 19:27 Ur Phencyclidine Scrn Negative (NEGATIVE) 07/21/23 18:35 PFSH PFSH Social History Smoking status: Never smoker Exam Constitutional Vital Signs, click to edit/add: Last Vital Signs Temp 98.6 F 10/01/23 19:03 Pulse 110 H 10/01/23 19:03 Resp 18 10/01/23 19:03 BP 119/73 10/01/23 19:03 Pulse Ox 97 10/01/23 19:03 O2 Del Method Room Air 10/01/23 19:03 Course Vital Signs Vital signs: Vital Signs Temperature 98.6 F 10/01/23 19:03 Pulse Rate 110 H 10/01/23 19:03 Respiratory Rate 18 10/01/23 19:03 Blood Pressure 119/73 10/01/23 19:03 Pulse Oximetry 97 10/01/23 19:03 Oxygen Delivery Method Room Air 10/01/23 19:03 Temperature 98.6 F 10/01/23 19:03 Pulse Rate 110 H 10/01/23 19:03 Respiratory Rate 18 10/01/23 19:03 Blood Pressure 119/73 10/01/23 19:03 Pulse Oximetry 97 10/01/23 19:03 Oxygen Delivery Method Room Air 10/01/23 19:03 MDM - Extremity Injury (Lower) MDM Narrative Medical decision making narrative: At time of my evaluation, patient has only 1 focal medical complaint of injury to the left knee. She was medicated with [place] and sent for x-rays of the left knee which are unremarkable. While waiting for x-ray results, she began to complain of left anterior chest pain and dizziness. IV was established, labs drawn and EKG obtained. Labs are within normal limits although D-dimer is elevated and TSH is elevated. Patient continues to complain of chest pain and dizziness in the emergency department. She no longer has knee pain after [place] was administered. She will be discharged home to follow-up with her PCP. She has A heart score of 3 for her age and risk factors of obesity, diabetes and high blood pressure. She should follow with her PCP and return to the ER if symptoms change or worsen. Patient was reevaluated by attending physician prior to discharge, she was given education and reassurance. For this patient encounter I reviewed the mid-level provider?s documentation, medical decision-making and treatment plan, and I personally spent time with this patient. Shared APC visit, physician attestation: [id number]: This visit was performed by both a physician and an APC. I personally evaluated and examined the patient. I performed all aspects of MDM as documented. I met with the patient to review her workup during today's ED visit. X-ray of the knee did not show any worrisome findings that required acute surgery or intervention emergently. An Oscar wrap was applied to the left knee and she will follow-up with her established orthopedist for further evaluation and treatment of that. Regarding the chest pain and dizziness, her workup was unremarkable in the emergency department, aside from elevated thyroid-stimulating hormone. She and I talked about this and she has no prior history of thyroid disease, that she knows of. She will follow-up with her primary care physician to discuss additional outpatient Testing and evaluation for this. At this time I will not prescribe any medication for her thyroid if she needs a further workup that can be done on an outpatient basis with her PCP. She had asked for something to be prescribed for her to take at home. She had received a [place] here but I am not comfortable prescribing narcotics to this patient at this time. Therefore I talked with her about a prescription for anti-inflammatory pain medicine. She says she does not have any of the Celebrex at home therefore I prescribed nabumetone for her to take. - Gaby, Imaging Data xr knee: Radiologist's impression: ITS Impressions Knee X-Ray 10/01/23 19:09 IMPRESSION: Mild degenerative change of the left knee without acute osseous abnormality. Electronically authenticated by: JAYLA SANCHEZ Date: 10/01/2023 20:11 CT scan - chest: Radiologist's impression: ITS Impressions Knee X-Ray 10/01/23 19:09 IMPRESSION: Mild degenerative change of the left knee without acute osseous abnormality. Electronically authenticated by: JAYLA SANCHEZ Date: 10/01/2023 20:11 Chest CTA 10/01/23 21:14 IMPRESSION: No central or segmental pulmonary embolism or acute abnormalities in chest. Electronically authenticated by: REAGAN JEFFERSON Date: 10/01/2023 22:01 Discharge Plan Discharge Stand Alone Forms: Portal Instructions Chief Complaint: Extremity Injury, Lower Clinical Impression: Chest pain, Contusion of left knee Patient Disposition: Home, Self-Care Time of Disposition Decision: 22:08 Condition: Good Prescriptions / Home Meds: New nabumetone 750 mg tablet 750 mg PO BID PRN (Reason: pain) Qty: 20 0RF No Action olanzapine 5 mg tablet 5 mg PO DAILY Rx Instructions: HS duloxetine [Cymbalta] 60 mg capsule,delayed release(DR/EC) 60 mg PO BID polyethylene glycol 3350 [Miralax] 17 gram powder in packet 17 g PO DAILY 14 Days Qty: 14 0RF Trulicity 0.75 mg/0.5 mL pen injector 0.75 mg SUBCUT .2 times week insulin glargine [Lantus Solostar U-100 Insulin] 100 unit/mL (3 mL) insulin pen 20 unit SUBCUT QPM meclizine 25 mg tablet 25 mg PO TID PRN (Reason: dizziness) pantoprazole 40 mg tablet,delayed release (DR/EC) 40 mg PO DAILY promethazine 25 mg tablet 25 mg PO BID PRN (Reason: nausea and vomiting) Qty: 7 0RF celecoxib 200 mg capsule ibuprofen 800 mg tablet hydroxyzine pamoate 50 mg capsule lidocaine 5 % adhesive patch,medicated levofloxacin 500 mg tablet albuterol sulfate 90 mcg/actuation HFA aerosol inhaler 2 inh INHALATION Q6H PRN (Reason: shortness of breath or wheezing) buspirone 15 mg tablet aripiprazole 20 mg tablet 20 mg PO .qhs gabapentin 600 mg tablet 600 mg PO Q8H insulin aspart U-100 [Novolog FlexPen U-100 Insulin] 100 unit/mL (3 mL) insulin pen 35 unit SUBCUT TID Patient Comments: plus sliding scale metoprolol tartrate 25 mg tablet 50 mg PO Q12H rosuvastatin 20 mg tablet 20 mg PO BEDTIME tizanidine 4 mg tablet 4 mg PO Q8H PRN (Reason: spasms) trazodone 100 mg tablet 200 mg PO BEDTIME meclizine [Antivert] 50 mg tablet 50 mg PO BID PRN (Reason: dizziness) Qty: 20 0RF Print Language: Libyan Instructions: Chest Pain (ED), Knee Pain (ED) Referrals: Physician,Non-Staff, MD [Primary Care Provider] - 1 week
[2023-10-01] MEDS: HYDROCODONE/ACET 5-325 MG TABLET 1 TAB PO (19:27)
[2023-10-01 20:52] LABS: Basophils Absolute Auto 0.1 10^3/uL (0.0-0.1); Basophils Percent Auto 0.7 % (0.2-2.0); Eosinophils Absolute Auto 0.3 10^3/uL (0.0-0.7); Eosinophils Percent Auto 3.9 % (0.9-7.0); Hematocrit 40.4 % (36.0-48.0); Hemoglobin 13.1 g/dL (12.0-16.0); Immature Granulocytes Abs Auto 0.02 10^3/uL (0.00-0.03); Immature Granulocytes Pct Auto 0.3 % (0.0-0.5); Lymphocytes Absolute Auto 2.4 10^3/uL (1.2-3.8); Lymphocytes Percent Auto 34.4 % (20.5-60.0); Mean Corpuscular HGB Conc 32.4 g/dL (29.9-35.2); Mean Corpuscular Hemoglobin 28.9 pg (26.7-34.0); Mean Corpuscular Volume 89.2 fL (81.0-99.0); Mean Platelet Volume 8.6 fL (9.5-13.5); Monocytes Absolute Auto 0.6 10^3/uL (0.3-0.8); Neutrophils Absolute Auto 3.6 10^3/uL (1.4-6.5); Neutrophils Percent Auto 52.7 % (43.0-75.0); Platelet Count 195 10^3/uL (150-450); Red Blood Count 4.53 10^6/uL (4.20-5.40); Red Cell Distribution Width 12.3 % (11.0-15.0); White Blood Count 6.9 10^3/uL (4.0-11.0)
[2023-10-01 21:10] LABS: Prothrombin Time 9.6 sec (9.0-11.6)
[2023-10-01 21:11] LABS: INR <0.93
[2023-10-01 21:12] LABS: D Dimer 0.62 mg/L FEU (<=0.59)
--- NOTE | 2023-10-01 21:14 | CT_ITS ---
[address] [address] Patient Name: GISEL PAT MRN: [id number] date: 1975 Sex: F Assigned Patient Location: ER Current Patient Location: ER Accession/Order Number: [id number] Exam Date: 10/01/2023 21:33 Report Date: 10/01/2023 22:01 At the request of: MARCELLA VINSON Procedure: CT angio chest EXAM: CT pulmonary angiogram of the chest using 100 mL of IV iodinated contrast. 3-D imaging was performed. Dose reduction technique used: Automated exposure control and/or adjustment of the mA and/or kV according to patient size and/or use of iterative reconstruction technique. REASON FOR EXAM: Chest pain COMPARISON: None FINDINGS: No central or segmental pulmonary emboli. Respiratory motion artifact prevents adequate evaluation of the subsegmental pulmonary artery branches. No aortic dissection. No pneumothorax. No acute airspace opacities. No pleural effusion. No acute fractures. No concerning pulmonary nodules. No definite lymphadenopathy in the chest. Remainder unremarkable. CT/CT angio chest IMPRESSION: No central or segmental pulmonary embolism or acute abnormalities in chest. Electronically authenticated by: REAGAN JEFFERSON Date: 10/01/2023 22:01
[2023-10-01 21:19] LABS: Alanine Aminotransferase 27 U/L (14-59); Albumin Globulin Ratio 0.9; Albumin Level 3.4 g/dL (3.4-5.0); Alkaline Phosphatase 90 U/L (46-116); Anion Gap 13.8; Aspartate Amino Transferase 16 U/L (15-37); BUN Creatinine Ratio 20.5; Bilirubin Total 0.3 mg/dL (0.2-1.0); Calcium 9.6 mg/dL (8.5-10.1); Carbon Dioxide 27.1 mmol/L (21.0-32.0); Chloride 102 mmol/L (98-107); Estimated GFR (African America >60 (>=60); Estimated GFR (Non-African Ame >60 (>=60); Glucose 198 mg/dL (74-106); Potassium 3.9 mmol/L (3.5-5.1); Sodium 139 mmol/L (136-145); Thyroid Stimulating Hormone 13.855 uIU/mL (0.358-3.740); Total Protein 7.4 g/dL (6.4-8.2); Troponin I High Sensitivity <4.0 pg/mL (4.0-51.3)
[2023-10-01] MEDS: 0.9 % SODIUM CHLORIDE 1,000 ML 1000 ML IV (21:48)
--- NOTE | 2023-10-01 23:10 | ECG_ITS ---
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
== END 2023-10-01 22:43 | disposition home or self-care (01) ==
PROVIDERS: Physician Assistant; Emergency Provider Emergency Medicine
DX: S80.02XA Contusion of left knee, initial encounter (principal); W10.8XXA Fall (on) (from) other stairs and steps, initial encounter; R07.9 Chest pain, unspecified; Z79.4 Long term (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 of insulin; Z79.899 Other long term (current) drug therapy; Z79.85 Long-term (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 of injectable non-insulin antidiabetic drugs; R42 Dizziness and giddiness; R79.89 Other specified abnormal findings of blood chemistry; E11.9 Type 2 diabetes mellitus without complications; I10 Essential (primary) hypertension; E66.9 Obesity, unspecified; Z68.42 Body mass index [BMI] 45.0-49.9, adult
CPT/HCPCS: 36415; 71275; 73564; 80053; 83880; 84443; 84484; 85025; 85378; 85610; 93005; 99285; Q9967

== ENCOUNTER 2024-03-24 11:44 | Emergency (ER) | payer OTHER, SELFPAY ==
[2024-03-24] VITALS (26 sets, daily range): BP systolic 123–141; BP diastolic 73–91; PULSE 67–109; TEMP 37.1; O2SAT 96–98; BMI 43.2
--- NOTE | 2024-03-24 11:56 | ECG_ITS ---
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
--- NOTE | 2024-03-24 11:56 | CT_ITS ---
The [address] [address] Patient Name: GISEL PAT MRN: [id number] date: 1975 Sex: F Assigned Patient Location: ER Current Patient Location: ER Accession/Order Number: [id number] Exam Date: 03/24/2024 12:02 Report Date: 03/24/2024 12:16 At the request of: LEROY JOYCE Procedure: CT stroke head/brain wo con NONCONTRAST HEAD CT COMPARISON: None. CLINICAL HISTORY: Facial numbness. TECHNIQUE: Routine noncontrast images of the brain obtained. CT examination of the head without IV contrast. Dose reduction techniques were achieved by using: automated exposure control and/or adjustment of mA and /or kV according to patient size and/or use of iterative reconstruction technique. FINDINGS: Paranasal sinuses and mastoid air cells are clear. Intraorbital contents are unremarkable. No acute bony abnormality. Intracranially, there is no evidence of hemorrhage, mass effect, or midline shift. Ventricles and cisternal spaces are age appropriate. CT/CT stroke head/brain wo con IMPRESSION: No acute intracranial abnormality. Electronically authenticated by: SAMEER COBIAN Date: 03/24/2024 12:16
--- NOTE | 2024-03-24 11:59 | ED_ITS ---
HPI HPI - General Adult General Chief complaint: Weakness Stated complaint: DIZZY, EXTREMITY WEAKNESS Time Seen by Provider: 03/24/24 11:46 Source: patient Mode of arrival: walk-in History of Present Illness HPI narrative: 48-year-old female presents to the emergency department for lightheadedness and numbness and tingling on the left side of her face and her left arm. It was like this when she woke today at 6 AM, 6 hours ago. It was not like this when she went to bed last night. She does not complain to me of a headache or any specific weakness. It has been continuous since it started. Related Data Home Medications ?Medication ?Instructions ?Recorded ?Confirmed gabapentin 600 mg tablet 600 mg PO Q8H 12/30/22 03/24/24 insulin aspart U-100 100 unit/mL 35 unit subcut TID 12/30/22 03/24/24 (3 mL) subcutaneous pen (Novolog FlexPen U-100 Insulin aspart) metoprolol tartrate 25 mg tablet 50 mg PO Q12H 12/30/22 03/24/24 rosuvastatin 20 mg tablet 20 mg PO BEDTIME 12/30/22 03/24/24 tizanidine 4 mg tablet 4 mg PO Q8H PRN spasms 12/30/22 03/24/24 trazodone 100 mg tablet 200 mg PO BEDTIME 12/30/22 03/24/24 olanzapine 5 mg tablet 5 mg PO DAILY 01/17/23 03/24/24 duloxetine 60 mg capsule,delayed 60 mg PO BID 07/19/23 03/24/24 release (Cymbalta) dulaglutide 0.75 mg/0.5 mL 0.75 mg subcut .2 times week 07/21/23 03/24/24 subcutaneous pen injector (Trulicity) insulin glargine 100 unit/mL (3 20 unit subcut QPM 07/21/23 03/24/24 mL) subcutaneous pen (Lantus Solostar U-100 Insulin) meclizine 25 mg tablet 25 mg PO TID PRN dizziness 07/21/23 08/13/23 pantoprazole 40 mg tablet,delayed 40 mg PO DAILY 07/21/23 03/24/24 release albuterol sulfate 90 mcg/actuation 2 inh inhalation Q6H PRN shortness 08/13/23 03/24/24 aerosol inhaler of breath or wheezing aripiprazole 20 mg tablet 20 mg PO .qhs 08/13/23 03/24/24 buspirone 15 mg tablet 15 mg PO TID 08/13/23 03/24/24 celecoxib 200 mg capsule 200 mg PO DAILY 08/13/23 03/24/24 hydroxyzine pamoate 50 mg capsule 50 mg PO TID PRN anxiety 08/13/23 03/24/24 ibuprofen 800 mg tablet 800 mg PO Q8H PRN pain 08/13/23 03/24/24 loratadine 10 mg tablet (Allergy 10 mg PO DAILY 03/24/24 03/24/24 Relief (loratadine)) metformin 500 mg tablet,extended 500 mg PO BID 03/24/24 03/24/24 release 24 hr naloxone 4 mg/actuation nasal spray 1 spray intranasal Q3M PRN opioid 03/24/24 03/24/24 overdose oxycodone-acetaminophen 5 mg-325 1 tab PO QPM PRN pain 03/24/24 03/24/24 mg tablet sulfamethoxazole 800 1 tab PO DAILY 03/24/24 03/24/24 mg-trimethoprim 160 mg tablet Previous Rx's ?Medication ?Instructions ?Recorded meclizine 50 mg tablet (Antivert) 50 mg PO BID PRN dizziness #20 tabs 03/01/23 Allergies Allergy/AdvReac Type Severity Reaction Status Date / Time melon Allergy Severe Anaphylaxis Verified 10/01/23 19:03 aspirin Allergy Unknown Verified 10/01/23 19:03 fentanyl Allergy Unknown Verified 10/01/23 19:03 ketorolac [From Toradol] Allergy Unknown Verified 10/01/23 19:03 meperidine [From Demerol] Allergy Unknown Verified 10/01/23 19:03 morphine Allergy Unknown Verified 10/01/23 19:03 nalbuphine [From Nubain] Allergy Unknown Verified 10/01/23 19:03 Penicillins Allergy Unknown Verified 10/01/23 19:03 Opioid HPI Opioid Management Most Recent Opioid Data: Last Pain Scale 9 03/24/24 14:01 Last MAR Pain Assessment 03/24/24 14:01 Ur Phencyclidine Scrn Negative (NEGATIVE) 07/21/23 18:35 Review of Systems ROS Narrative A ten point review of systems is negative except as noted above. PFSH PFSH Social History Smoking status: Never smoker Exam Narrative Exam Narrative: Nurses note and vital signs reviewed and patient is not hypoxic. General: The patient appears well and in no apparent distress. Patient is resting comfortably on cart. Skin: Warm, dry, no pallor noted. There is no rash noted. Head: Normocephalic, atraumatic Eye: Normal conjunctiva, no drainage, EOMI. PERRL Ears, Nose, Mouth, and Throat: oral mucosa is moist. Nares patent. Mouth without vesicles. Cardiovascular: Regular Rate and Rhythm Respiratory: Patient is in no distress, no accessory muscle use, lungs are c lear to auscultation, no wheezing, rales or rhonchi Back: non-tender GI: Soft and nontender Musculoskeletal: The patient has no evidence of calf tenderness, no pitting edema, symmetrical pulses noted bilaterally Neurological: A&O x4, normal speech; cranial nerves II through XII are intact except for decreased sensation on the left side of her face. Hand grasp is symmetric as is biceps and tricep strength. Skin color is normal in her left arm with radial pulse 2+ and brisk capillary refill. Motor strength is symmetric in her lower extremities. Psychiatric: Cooperative Constitutional Vital Signs, click to edit/add: Last Vital Signs Temp 98.7 F 03/24/24 11:47 Pulse 100 H 03/24/24 14:40 Resp 14 03/24/24 14:42 BP 123/86 03/24/24 14:03 Pulse Ox 96 03/24/24 11:48 O2 Del Method Room Air 03/24/24 11:47 Course Vital Signs Vital signs: Vital Signs Temperature 98.7 F 03/24/24 11:47 Pulse Rate 105 H 03/24/24 11:47 Respiratory Rate 18 03/24/24 11:47 Blood Pressure 141/91 03/24/24 11:47 Pulse Oximetry 97 03/24/24 11:47 Oxygen Delivery Method Room Air 03/24/24 11:47 Temperature 98.7 F 03/24/24 11:47 Pulse Rate 100 H 03/24/24 14:40 Respiratory Rate 14 03/24/24 14:42 Blood Pressure 123/86 03/24/24 14:03 Pulse Oximetry 96 03/24/24 11:48 Oxygen Delivery Method Room Air 03/24/24 11:47 Medical Decision Making MDM Narrative Medical decision making narrative: Pain, CTA head and neck are all negative per radiologist. I discussed the case with [facility] neurologist and they do not feel that admission to the hospital is warranted. They feel it is more likely that her paresthesia symptoms are secondary to the headache. The patient was given IV Dilaudid and is feeling improved and she is able to be discharged home. At this point I do not suspect an acute stroke and she is going to be discharged home and have further workup if necessary as an outpatient. Treatment diagnosis and follow-up were discussed with the patient. Differential Diagnosis Differential Diagnosis: Headache, paresthesia, stroke Lab Data Lab results reviewed: Yes I reviewed the patient's lab results Labs: Lab Results 03/24/24 03/24/24 Range/Units 12:26 12:27 WBC 5.2 (4.0-11.0) 10^3/uL RBC 4.83 (4.20-5.40) 10^6/uL Hgb 14.1 (12.0-16.0) g/dL Hct 41.6 (36.0-48.0) % MCV 86.1 (81.0-99.0) fL MCH 29.2 (26.7-34.0) pg MCHC 33.9 (29.9-35.2) g/dL RDW 13.6 (11.0-15.0) % Plt Count 182 (150-450) 10^3/uL MPV 9.5 (9.5-13.5) fL Neut % (Auto) 59.2 (43.0-75.0) % Lymph % (Auto) 29.9 (20.5-60.0) % Warren % (Auto) 6.4 (1.7-12.0) % Eos % (Auto) 3.5 (0.9-7.0) % Baso % (Auto) 0.8 (0.2-2.0) % Neut # (Auto) 3.1 (1.4-6.5) 10^3/uL Lymph # (Auto) 1.6 (1.2-3.8) 10^3/uL Warren # (Auto) 0.3 (0.3-0.8) 10^3/uL Eos # (Auto) 0.2 (0.0-0.7) 10^3/uL Baso # (Auto) 0.0 (0.0-0.1) 10^3/uL Abs Immat Gran (auto) 0.01 (0.00-0.03) 10^3/uL Imm/Tot Granulo (auto) 0.2 (0.0-0.5) % Sodium 137 (136-145) mmol/L Potassium 3.3 L (3.5-5.1) mmol/L Chloride 99 (98-107) mmol/L Carbon Dioxide 31.2 (21.0-32.0) mmol/L Anion Gap 10.1 BUN 9.0 (7.0-18.0) mg/dL Creatinine 0.87 (0.55-1.02) mg/dL Est GFR ( Amer) >60 (>=60) Est GFR (Non-Af Amer) >60 (>=60) BUN/Creatinine Ratio 10.3 Glucose 259 H (74-106) mg/dL Calcium 9.7 (8.5-10.1) mg/dL POC Glucose 247 H (74-106) mg/dL Imaging Data CT scan - head: Radiologist's impression: ITS Impressions Brain CT 03/24/24 11:56 IMPRESSION: No acute intracranial abnormality. Electronically authenticated by: SAMEER COBIAN Date: 03/24/2024 12:16 Head CTA 03/24/24 12:23 IMPRESSION: 1. Normal CT angiography of the head and neck. Electronically authenticated by: WYATT COHEN Date: 03/24/2024 13:21 Neck CTA 03/24/24 12:23 IMPRESSION: 1. Normal CT angiography of the head and neck. Electronically authenticated by: WYATT COHEN Date: 03/24/2024 13:21 ECG Data Attestation: I personally reviewed and interpreted this ECG as follows: (EKG on my interpretation shows sinus rhythm with a rate of 100 and no acute change.) Discharge Plan Discharge Chief Complaint: Weakness Clinical Impression: Headache, Paresthesia Patient Disposition: Home, Self-Care Time of Disposition Decision: 15:11 Condition: Good Mode of Transportation: Private Vehicle Prescriptions / Home Meds: No Action olanzapine 5 mg tablet 5 mg PO DAILY Rx Instructions: HS duloxetine [Cymbalta] 60 mg capsule,delayed release(DR/EC) 60 mg PO BID Trulicity 0.75 mg/0.5 mL pen injector 0.75 mg SUBCUT .2 times week insulin glargine [Lantus Solostar U-100 Insulin] 100 unit/mL (3 mL) insulin pen 20 unit SUBCUT QPM meclizine 25 mg tablet 25 mg PO TID PRN (Reason: dizziness) pantoprazole 40 mg tablet,delayed release (DR/EC) 40 mg PO DAILY celecoxib 200 mg capsule 200 mg PO DAILY ibuprofen 800 mg tablet 800 mg PO Q8H PRN (Reason: pain) hydroxyzine pamoate 50 mg capsule 50 mg PO TID PRN (Reason: anxiety) albuterol sulfate 90 mcg/actuation HFA aerosol inhaler 2 inh INHALATION Q6H PRN (Reason: shortness of breath or wheezing) buspirone 15 mg tablet 15 mg PO TID aripiprazole 20 mg tablet 20 mg PO .qhs loratadine [Allergy Relief (loratadine)] 10 mg tablet 10 mg PO DAILY metformin 500 mg tablet extended release 24 hr 500 mg PO BID naloxone 4 mg/actuation spray,non-aerosol 1 spray INTRANASAL Q3M PRN (Reason: opioid overdose) oxycodone-acetaminophen 5-325 mg tablet 1 tab PO QPM PRN (Reason: pain) sulfamethoxazole-trimethoprim 800-160 mg tablet 1 tab PO DAILY gabapentin 600 mg tablet 600 mg PO Q8H insulin aspart U-100 [Novolog FlexPen U-100 Insulin] 100 unit/mL (3 mL) insulin pen 35 unit SUBCUT TID Patient Comments: plus sliding scale metoprolol tartrate 25 mg tablet 50 mg PO Q12H rosuvastatin 20 mg tablet 20 mg PO BEDTIME tizanidine 4 mg tablet 4 mg PO Q8H PRN (Reason: spasms) trazodone 100 mg tablet 200 mg PO BEDTIME meclizine [Antivert] 50 mg tablet 50 mg PO BID PRN (Reason: dizziness) Qty: 20 0RF Print Language: Khmer Instructions: Acute Headache (ED), Paresthesia (ED) Referrals: Physician,Non-Staff, MD [Primary Care Provider] - 1 week
--- NOTE | 2024-03-24 12:23 | CT_ITS ---
[address] [address] Patient Name: GISEL PAT MRN: [id number] date: 1975 Sex: F Assigned Patient Location: ER Current Patient Location: Accession/Order Number: [id number] Exam Date: 03/24/2024 12:36 Report Date: 03/24/2024 13:21 At the request of: LEROY JOYCE Procedure: CT angio head EXAMINATION: CT angio head, CT angio neck HISTORY: Left facial and left arm numbness COMPARISON: No relevant comparison available. TECHNIQUE: Axial, Coronal, and Sagittal CT images with IV contrast. Multi-planar/3-D imaging to optimize visualization of vascular anatomy. Percent stenosis is based on NASCET criteria. Dose reduction techniques were achieved by using automated exposure control and/or adjustment of mA and/or kV according to patient size and/or use of iterative reconstruction technique. FINDINGS: HEAD: VASCULATURE: No significant stenosis. No visible aneurysm or vascular malformation. VENTRICLES: No enlargement or displacement. CEREBRUM: No excessive atrophy, mass, or hemorrhage, or abnormal enhancement. CEREBELLUM: No excessive atrophy, mass, or hemorrhage, or abnormal enhancement. BRAINSTEM: . No excessive atrophy, mass, or hemorrhage, or abnormal enhancement. BASAL CISTERNS: No subarachnoid hemorrhage or effacement. SKULL: Negative. NECK: RIGHT INTERNAL CAROTID: No hemodynamically significant stenosis or dissection. EXTERNAL CAROTID: No hemodynamically significant stenosis or dissection. COMMON CAROTID: No hemodynamically significant stenosis or dissection. VERTEBRAL: No hemodynamically significant stenosis or dissection. LEFT INTERNAL CAROTID: No hemodynamically significant stenosis or dissection. EXTERNAL CAROTID: No hemodynamically significant stenosis or dissection. COMMON CAROTID: No hemodynamically significant stenosis or dissection. VERTEBRAL: No hemodynamically significant stenosis or dissection. OTHER: Anterior mechanical fusion of C5-C6-[address]/CT angio head IMPRESSION: 1. Normal CT angiography of the head and neck. Electronically authenticated by: WYATT COHEN Date: 03/24/2024 13:21
--- NOTE | 2024-03-24 12:23 | CT_ITS ---
[address] [address] Patient Name: GISEL PAT MRN: [id number] date: 1975 Sex: F Assigned Patient Location: ER Current Patient Location: Accession/Order Number: [id number] Exam Date: 03/24/2024 12:36 Report Date: 03/24/2024 13:21 At the request of: LEROY JOYCE Procedure: CT angio neck EXAMINATION: CT angio head, CT angio neck HISTORY: Left facial and left arm numbness COMPARISON: No relevant comparison available. TECHNIQUE: Axial, Coronal, and Sagittal CT images with IV contrast. Multi-planar/3-D imaging to optimize visualization of vascular anatomy. Percent stenosis is based on NASCET criteria. Dose reduction techniques were achieved by using automated exposure control and/or adjustment of mA and/or kV according to patient size and/or use of iterative reconstruction technique. FINDINGS: HEAD: VASCULATURE: No significant stenosis. No visible aneurysm or vascular malformation. VENTRICLES: No enlargement or displacement. CEREBRUM: No excessive atrophy, mass, or hemorrhage, or abnormal enhancement. CEREBELLUM: No excessive atrophy, mass, or hemorrhage, or abnormal enhancement. BRAINSTEM: . No excessive atrophy, mass, or hemorrhage, or abnormal enhancement. BASAL CISTERNS: No subarachnoid hemorrhage or effacement. SKULL: Negative. NECK: RIGHT INTERNAL CAROTID: No hemodynamically significant stenosis or dissection. EXTERNAL CAROTID: No hemodynamically significant stenosis or dissection. COMMON CAROTID: No hemodynamically significant stenosis or dissection. VERTEBRAL: No hemodynamically significant stenosis or dissection. LEFT INTERNAL CAROTID: No hemodynamically significant stenosis or dissection. EXTERNAL CAROTID: No hemodynamically significant stenosis or dissection. COMMON CAROTID: No hemodynamically significant stenosis or dissection. VERTEBRAL: No hemodynamically significant stenosis or dissection. OTHER: Anterior mechanical fusion of C5-C6-[address]/CT angio neck IMPRESSION: 1. Normal CT angiography of the head and neck. Electronically authenticated by: WYATT COHEN Date: 03/24/2024 13:21
[2024-03-24 12:29] LABS: Glucometer 247 mg/dL (74-106)
[2024-03-24 12:35] LABS: Basophils Percent Auto 0.8 % (0.2-2.0); Eosinophils Absolute Auto 0.2 10^3/uL (0.0-0.7); Eosinophils Percent Auto 3.5 % (0.9-7.0); Hematocrit 41.6 % (36.0-48.0); Hemoglobin 14.1 g/dL (12.0-16.0); Immature Granulocytes Abs Auto 0.01 10^3/uL (0.00-0.03); Immature Granulocytes Pct Auto 0.2 % (0.0-0.5); Lymphocytes Absolute Auto 1.6 10^3/uL (1.2-3.8); Lymphocytes Percent Auto 29.9 % (20.5-60.0); Mean Corpuscular HGB Conc 33.9 g/dL (29.9-35.2); Mean Corpuscular Hemoglobin 29.2 pg (26.7-34.0); Mean Corpuscular Volume 86.1 fL (81.0-99.0); Mean Platelet Volume 9.5 fL (9.5-13.5); Monocytes Absolute Auto 0.3 10^3/uL (0.3-0.8); Monocytes Percent Auto 6.4 % (1.7-12.0); Neutrophils Absolute Auto 3.1 10^3/uL (1.4-6.5); Neutrophils Percent Auto 59.2 % (43.0-75.0); Platelet Count 182 10^3/uL (150-450); Red Blood Count 4.83 10^6/uL (4.20-5.40); Red Cell Distribution Width 13.6 % (11.0-15.0); White Blood Count 5.2 10^3/uL (4.0-11.0)
[2024-03-24 12:46] LABS: Anion Gap 10.1; BUN Creatinine Ratio 10.3; Calcium 9.7 mg/dL (8.5-10.1); Carbon Dioxide 31.2 mmol/L (21.0-32.0); Chloride 99 mmol/L (98-107); Estimated GFR (African America >60 (>=60); Estimated GFR (Non-African Ame >60 (>=60); Glucose 259 mg/dL (74-106); Potassium 3.3 mmol/L (3.5-5.1); Sodium 137 mmol/L (136-145)
[2024-03-24] MEDS: HYDROMORPHONE HCL 1 MG/ML CARTRIDGE IV (14:01)
== END 2024-03-24 15:30 | disposition home or self-care (01) ==
PROVIDERS: Emergency Provider Emergency Medicine
DX: R51.9 Headache, unspecified (principal); R20.2 Paresthesia of skin
CPT/HCPCS: 36415; 70450; 70496; 70498; 80048; 81001; 85025; 93005; 96374; 99285; J1170; Q9967

== ENCOUNTER 2024-03-28 16:03 | Observation (INO) | payer OTHER, SELFPAY ==
[2024-03-28] VITALS (15 sets, daily range): BP systolic 121–183; BP diastolic 68–111; PULSE 113–132; TEMP 36.6–36.8; O2SAT 94–99; BMI 38.7; BMI 42.9
--- NOTE | 2024-03-28 16:17 | ECG_ITS ---
The [facility] Test Date: 2024-03-28 Pat Name: GISEL PAT Department: Room: - Gender: Female [employer]: : 1975 Requested By: Order Number: [id number] Reading MD: KIMMY JAIME Measurements Intervals [place] Rate: 132 P: 57 TN: 126 QRS: 50 QRSD: 90 T: 49 QT: 318 QTc: 396 Interpretive Statements 1120 Sinus tachycardia 4068 Nonspecific [place] abnormality 9140 abnormal rhythm ECG Compared to ECG 03/24/2024 11:52:37 No significant changes Electronically Signed On 03-28-2024 22:57:32 EDT by KIMMY JAIME
--- NOTE | 2024-03-28 16:17 | CT_ITS ---
The [address] [address] Patient Name: GISEL PAT MRN: [id number] date: 1975 Sex: F Assigned Patient Location: ER Current Patient Location: ER Accession/Order Number: [id number] Exam Date: 03/28/2024 17:00 Report Date: 03/28/2024 17:46 At the request of: MARCELLA VINSON Procedure: CT head/brain wo con CT head/brain wo con, CT cervical spine wo con, 03/28/2024 5:00 PM EDT INDICATION: Headache, syncope COMPARISON: Prior CT and CTA of head dated 03/24/2024 TECHNIQUE: Axial images of 3 mm are obtained from the base of the skull to vertex completed with Axial images of 2 mm are obtained from base of skull to T2 without contrast. Dose reduction techniques were achieved by using automated exposure control and/or adjustment of mA and/or kV according to patient size and/or use of iterative reconstruction technique. FINDINGS: The cerebral and cerebellar sulci as well as ventricular system are appropriate for age. There is no intracranial mass, mass effect, midline shift, intra or extra-axial fluid collection. No acute territorial infarction or hemorrhage is noted. The visualized portions of orbits, mastoid air cells as well as paranasal sinuses are unremarkable. There is no suspicious osteolytic or osteoblastic lesion. There is status post ACDF of C5 C6 C7 with spacer insertion causing streak artifact that decreases the sensitivity of this study. No definite hardware fracture or loosening is noted. No acute fracture or dislocation is noted. Multilevel degenerative changes of cervical spine are noted. CT/CT head/brain wo con IMPRESSION: No acute intracranial process is identified. No acute fracture. Electronically authenticated by: MICHAEL HENNING Date: 03/28/2024 17:46
--- NOTE | 2024-03-28 16:17 | CT_ITS ---
The [address] [address] Patient Name: GISEL PAT MRN: [id number] date: 1975 Sex: F Assigned Patient Location: ER Current Patient Location: ER Accession/Order Number: [id number] Exam Date: 03/28/2024 17:00 Report Date: 03/28/2024 18:13 At the request of: MARCELLA VINSON Procedure: CT angio chest EXAM: CT angio chest HISTORY: Pulmonary embolism COMPARISON: None. TECHNIQUE: CT chest with intravenous contrast was performed with timing for the evaluation for pulmonary arteries. Multiplanar reformats were performed. MIP (maximum intensity projection) images or 3D post processing was performed. Dose reduction techniques were achieved by using automated exposure control and/or adjustment of mA and/or kV according to patient size and/or use of iterative reconstruction technique. FINDINGS: Lungs: No consolidation, pneumothorax, or effusion. Airways: Normal. Mediastinum: No adenopathy. Aorta: No aneurysm. Cardiac: Normal size. No pericardial effusion. Pulmonary vasculature: Diagnostic opacification of pulmonary arteries without evidence of pulmonary embolus. Normal morphology. Bones: No acute bony abnormality. Axilla: No adenopathy. Thyroid gland: No abnormality demonstrated on provided imaging. Soft tissues: Unremarkable. Upper abdomen: Small hiatal hernia. Additional findings: None. CT/CT angio chest IMPRESSION:No evidence of pulmonary embolus or acute intrathoracic abnormality. Electronically authenticated by: BIRDIE LAUREN Date: 03/28/2024 18:13
--- NOTE | 2024-03-28 16:17 | CT_ITS ---
The [address] [address] Patient Name: GISEL PAT MRN: [id number] date: 1975 Sex: F Assigned Patient Location: ER Current Patient Location: ER Accession/Order Number: [id number] Exam Date: 03/28/2024 17:00 Report Date: 03/28/2024 17:46 At the request of: MARCELLA VINSON Procedure: CT cervical spine wo con CT head/brain wo con, CT cervical spine wo con, 03/28/2024 5:00 PM EDT INDICATION: Headache, syncope COMPARISON: Prior CT and CTA of head dated 03/24/2024 TECHNIQUE: Axial images of 3 mm are obtained from the base of the skull to vertex completed with Axial images of 2 mm are obtained from base of skull to T2 without contrast. Dose reduction techniques were achieved by using automated exposure control and/or adjustment of mA and/or kV according to patient size and/or use of iterative reconstruction technique. FINDINGS: The cerebral and cerebellar sulci as well as ventricular system are appropriate for age. There is no intracranial mass, mass effect, midline shift, intra or extra-axial fluid collection. No acute territorial infarction or hemorrhage is noted. The visualized portions of orbits, mastoid air cells as well as paranasal sinuses are unremarkable. There is no suspicious osteolytic or osteoblastic lesion. There is status post ACDF of C5 C6 C7 with spacer insertion causing streak artifact that decreases the sensitivity of this study. No definite hardware fracture or loosening is noted. No acute fracture or dislocation is noted. Multilevel degenerative changes of cervical spine are noted. CT/CT cervical spine wo con IMPRESSION: No acute intracranial process is identified. No acute fracture. Electronically authenticated by: MICHAEL HENNING Date: 03/28/2024 17:46
--- NOTE | 2024-03-28 16:19 | ED.GENADUL1 ---
HPI HPI - General Adult General Chief complaint: Chest Pain Stated complaint: Left Side Numbness, Chest Pains Time Seen by Provider: 03/28/24 16:06 Source: patient Mode of arrival: Wheelchair Limitations: no limitations History of Present Illness HPI narrative: Patient is a 48-year-old female well-known to this emergency department with chronic pain complaints who returns for reevaluation of headache, left-sided numbness, chest pain and syncope. She was seen in this emergency department 4 days ago for left-sided numbness and headache. She had an unremarkable CT of the brain, CT angio of the head and neck. She was discharged after she received Dilaudid and was reporting feeling better. Patient states that her symptoms have worsened over the last several days. She reports 2 syncopal episodes at work, 1 syncopal episode was witnessed by her boss although the patient states that no one called 911 for her despite having 2 syncopal episodes at work with falls to the ground. She complains of chest pain. She states she has been having memory problems over the last several days. Related Data Home Medications ?Medication ?Instructions ?Recorded ?Confirmed gabapentin 600 mg tablet 600 mg PO Q8H 12/30/22 03/28/24 insulin aspart U-100 100 unit/mL 35 unit subcut TID 12/30/22 03/28/24 (3 mL) subcutaneous pen (Novolog FlexPen U-100 Insulin aspart) metoprolol tartrate 25 mg tablet 50 mg PO Q12H 12/30/22 03/28/24 rosuvastatin 20 mg tablet 20 mg PO BEDTIME 12/30/22 03/28/24 tizanidine 4 mg tablet 4 mg PO Q8H PRN spasms 12/30/22 03/28/24 trazodone 100 mg tablet 200 mg PO BEDTIME 12/30/22 03/28/24 olanzapine 5 mg tablet 5 mg PO DAILY 01/17/23 03/28/24 duloxetine 60 mg capsule,delayed 60 mg PO BID 07/19/23 03/28/24 release (Cymbalta) dulaglutide 0.75 mg/0.5 mL 0.75 mg subcut .2 times week 07/21/23 03/28/24 subcutaneous pen injector (Jeffreyulicvenessa) insulin glargine 100 unit/mL (3 20 unit subcut QPM 07/21/23 03/28/24 mL) subcutaneous pen (Lantus Solostar U-100 Insulin) meclizine 25 mg tablet 25 mg PO TID PRN dizziness 07/21/23 03/28/24 pantoprazole 40 mg tablet,delayed 40 mg PO DAILY 07/21/23 03/28/24 release albuterol sulfate 90 mcg/actuation 2 inh inhalation Q6H PRN shortness 08/13/23 03/28/24 aerosol inhaler of breath or wheezing aripiprazole 20 mg tablet 20 mg PO .qhs 08/13/23 03/28/24 buspirone 15 mg tablet 15 mg PO TID 08/13/23 03/28/24 celecoxib 200 mg capsule 200 mg PO DAILY 08/13/23 03/28/24 hydroxyzine pamoate 50 mg capsule 50 mg PO TID PRN anxiety 08/13/23 03/28/24 loratadine 10 mg tablet (Allergy 10 mg PO DAILY 03/24/24 03/28/24 Relief (loratadine)) metformin 500 mg tablet,extended 500 mg PO BID 03/24/24 03/28/24 release 24 hr naloxone 4 mg/actuation nasal spray 1 spray intranasal Q3M PRN opioid 03/24/24 03/28/24 overdose oxycodone-acetaminophen 5 mg-325 1 tab PO QPM PRN pain 03/24/24 03/28/24 mg tablet Previous Rx's ?Medication ?Instructions ?Recorded meclizine 50 mg tablet (Antivert) 50 mg PO BID PRN dizziness #20 tabs 03/01/23 Allergies Allergy/AdvReac Type Severity Reaction Status Date / Time melon Allergy Severe Anaphylaxis Verified 10/01/23 19:03 aspirin Allergy Unknown Verified 10/01/23 19:03 fentanyl Allergy Unknown Verified 10/01/23 19:03 ketorolac [From Toradol] Allergy Unknown Verified 10/01/23 19:03 meperidine [From Demerol] Allergy Unknown Verified 10/01/23 19:03 morphine Allergy Unknown Verified 10/01/23 19:03 nalbuphine [From Nubain] Allergy Unknown Verified 10/01/23 19:03 Penicillins Allergy Unknown Verified 10/01/23 19:03 Opioid HPI Opioid Management Most Recent Opioid Data: Last Pain Scale 8 03/28/24 19:05 Last ED Pain Assessment 03/28/24 19:05 Ur Phencyclidine Scrn Negative (NEGATIVE) 07/21/23 18:35 Review of Systems ROS Constitutional Denies: fever or chills Eyes Denies: change in vision Ears, nose, mouth, and throat Denies: nasal congestion Cardiovascular Reports: chest pain Respiratory Denies: shortness of breath Gastrointestinal Denies: abdominal pain, nausea or vomiting Musculoskeletal Reports: back pain; Denies: neck pain Integumentary/Breast Denies: rash Neurological Reports: headache, numbness in extremities, weakness in extremities and dizziness Psychiatric Reports: memory loss Hematologic/Lymphatic Denies: easy bruising or easy bleeding PFSH PFSH Social History Smoking status: Never smoker Little interest or pleasure in doing things: not at all Feeling down, depressed, or hopeless: not at all Exam Narrative Exam Narrative: Gen.: Awake, alert, in no distress Head: Normocephalic, atraumatic ENT: Moist mucous membranes, no evidence of facial or dental injury, C-spine nontender Respiratory: No respiratory distress, lungs clear bilaterally Cardio: Tachycardic Extremities: Moves extremities equally, no pedal edema Psych: Flat affect Neuro: No focal neuro deficit Skin: Warm, dry, intact Constitutional Vital Signs, click to edit/add: Last Vital Signs Temp 97.9 F 03/28/24 19:00 Pulse 117 H 03/28/24 19:00 Resp 98 H 03/28/24 19:00 BP 146/94 H 03/28/24 19:00 Pulse Ox 99 03/28/24 18:07 O2 Del Method Room Air 03/28/24 18:07 Course Vital Signs Vital signs: Vital Signs Temperature 98.3 F 03/28/24 16:09 Pulse Rate 132 H 03/28/24 16:09 Respiratory Rate 18 03/28/24 16:09 Blood Pressure 183/98 H 03/28/24 16:09 Pulse Oximetry 98 03/28/24 16:09 Oxygen Delivery Method Room Air 03/28/24 16:09 Temperature 97.9 F 03/28/24 19:00 Pulse Rate 117 H 03/28/24 19:00 Respiratory Rate 98 H 03/28/24 19:00 Blood Pressure 146/94 H 03/28/24 19:00 Pulse Oximetry 99 03/28/24 18:07 Oxygen Delivery Method Room Air 03/28/24 18:07 Medical Decision Making MDM Narrative Medical decision making narrative: Upon arrival to the emergency department, patient was found to have no focal stroke deficits, she has a benign exam. She was found to be hypertensive and tachycardic initially. She was treated with IV fluids, Reglan, Benadryl, 0.5 mg IV Ativan. She reported no improvement in her headache, however her blood pressure normalized. She was sent for CT of the brain and CT of the cervical spine without contrast due to her syncopal episode with fall in addition to CT angio of the chest. The studies are unremarkable. Laboratory studies reviewed and noted showing mild increase in creatinine, significant hyperglycemia with blood sugar 672 however she has a normal CO2/anion gap and venous pH. Acetone is negative. She was given subcutaneous insulin with blood sugar on repeat 492. 1836: Patient was treated with additional Fioricet and magnesium sulfate. Case was discussed with neurology at [facility], Dr. Weaver recommended that the patient be transferred to the stroke service due to her uncontrolled blood sugars and continued complaints. I spoke with the stroke interventionalist Dr. Morelos at [facility], he recommended that the patient receive aspirin, Plavix and be admitted for MRI and echo at this facility. I spoke with the telehospitalist at this facility who accepted the patient for observation with telemetry. SHARED APC VISIT, PHYSICIAN ATTESTATION: [id number] I performed a substantive part of the MDM during the patient?s E/M visit. I personally evaluated and examined the patient. I personally made or approved the documented management plan and acknowledge its risk of complications. Medical Records Medical records reviewed: Yes I reviewed the patient's medical records Lab Data Lab results reviewed: Yes I reviewed the patient's lab results Labs: Lab Results 03/28/24 03/28/24 03/28/24 Range/Units 16:33 17:30 17:41 WBC 5.0 (4.0-11.0) 10^3/uL RBC 4.89 (4.20-5.40) 10^6/uL Hgb 14.1 (12.0-16.0) g/dL Hct 42.1 (36.0-48.0) % MCV 86.1 (81.0-99.0) fL MCH 28.8 (26.7-34.0) pg MCHC 33.5 (29.9-35.2) g/dL RDW 13.5 (11.0-15.0) % Plt Count 208 (150-450) 10^3/uL MPV 9.9 (9.5-13.5) fL Neut % (Auto) 54.1 (43.0-75.0) % Lymph % (Auto) 34.5 (20.5-60.0) % Davis % (Auto) 8.6 (1.7-12.0) % Eos % (Auto) 1.8 (0.9-7.0) % Baso % (Auto) 0.8 (0.2-2.0) % Neut # (Auto) 2.7 (1.4-6.5) 10^3/uL Lymph # (Auto) 1.7 (1.2-3.8) 10^3/uL Davis # (Auto) 0.4 (0.3-0.8) 10^3/uL Eos # (Auto) 0.1 (0.0-0.7) 10^3/uL Baso # (Auto) 0.0 (0.0-0.1) 10^3/uL Abs Immat Gran (auto) 0.01 (0.00-0.03) 10^3/uL Imm/Tot Granulo (auto) 0.2 (0.0-0.5) % ESR 72 H (<=20) mm/hr PT 10.4 (9.0-11.6) sec INR 0.98 VBG pH 7.375 (7.330-7.430) VBG pCO2 44.3 (40.0-52.0) mmHg Sodium 130 L (136-145) mmol/L Potassium 3.6 (3.5-5.1) mmol/L Chloride 94 L (98-107) mmol/L Carbon Dioxide 26.3 (21.0-32.0) mmol/L Anion Gap 13.3 BUN 7.0 (7.0-18.0) mg/dL Creatinine 1.22 H (0.55-1.02) mg/dL Est GFR ( Amer) 57 L (>=60) Est GFR (Non-Af Amer) 47 L (>=60) BUN/Creatinine Ratio 5.7 Glucose 672 H* (74-106) mg/dL Lactate 3.3 H* (0.4-2.0) mmol/L Calcium 9.7 (8.5-10.1) mg/dL Total Bilirubin 0.5 (0.2-1.0) mg/dL AST 21 (15-37) U/L ALT 30 (14-59) U/L Alkaline Phosphatase 108 (46-116) U/L Troponin I High Sens <4.0 L (4.0-51.3) pg/mL C-Reactive Protein <0.50 (<=0.50) mg/dL NT-Pro-B Natriuret Pep 55.0 (<=450.0) pg/mL Total Protein 7.8 (6.4-8.2) g/dL Albumin 3.8 (3.4-5.0) g/dL Globulin 4.0 g/dL Albumin/Globulin Ratio 0.9 TSH 8.598 H (0.358-3.740) uIU/mL Serum HCG, Qual Negative (NEGATIVE) Urine Color Lt. yellow (YELLOW) Urine Clarity Clear (CLEAR) Urine pH 6.0 (5.0-9.0) Ur Specific [place] <=1.005 A (1.005-1.025) Urine Protein Negative (NEG/TRACE) mg/dL Urine Glucose (UA) >=1000 A (NEGATIVE) mg/dL Urine Ketones 15 A (NEGATIVE) mg/dL Urine Occult Blood Negative (NEGATIVE) Urine Nitrite Negative (NEGATIVE) Urine Bilirubin Negative (NEGATIVE) Urine Urobilinogen 0.2 (0.2-1.0) EU/dL Ur Leukocyte Esterase Negative (NEGATIVE) Acetone, Qual Negative (NEGATIVE) POC Glucose (74-106) mg/dL 03/28/24 Range/Units 18:11 WBC (4.0-11.0) 10^3/uL RBC (4.20-5.40) 10^6/uL Hgb (12.0-16.0) g/dL Hct (36.0-48.0) % MCV (81.0-99.0) fL MCH (26.7-34.0) pg MCHC (29.9-35.2) g/dL RDW (11.0-15.0) % Plt Count (150-450) 10^3/uL MPV (9.5-13.5) fL Neut % (Auto) (43.0-75.0) % Lymph % (Auto) (20.5-60.0) % Davis % (Auto) (1.7-12.0) % Eos % (Auto) (0.9-7.0) % Baso % (Auto) (0.2-2.0) % Neut # (Auto) (1.4-6.5) 10^3/uL Lymph # (Auto) (1.2-3.8) 10^3/uL Davis # (Auto) (0.3-0.8) 10^3/uL Eos # (Auto) (0.0-0.7) 10^3/uL Baso # (Auto) (0.0-0.1) 10^3/uL Abs Immat Gran (auto) (0.00-0.03) 10^3/uL Imm/Tot Granulo (auto) (0.0-0.5) % ESR (<=20) mm/hr PT (9.0-11.6) sec INR VBG pH (7.330-7.430) VBG pCO2 (40.0-52.0) mmHg Sodium (136-145) mmol/L Potassium (3.5-5.1) mmol/L Chloride (98-107) mmol/L Carbon Dioxide (21.0-32.0) mmol/L Anion Gap BUN (7.0-18.0) mg/dL Creatinine (0.55-1.02) mg/dL Est GFR ( Amer) (>=60) Est GFR (Non-Af Amer) (>=60) BUN/Creatinine Ratio Glucose (74-106) mg/dL Lactate (0.4-2.0) mmol/L Calcium (8.5-10.1) mg/dL Total Bilirubin (0.2-1.0) mg/dL AST (15-37) U/L ALT (14-59) U/L Alkaline Phosphatase (46-116) U/L Troponin I High Sens (4.0-51.3) pg/mL C-Reactive Protein (<=0.50) mg/dL NT-Pro-B Natriuret Pep (<=450.0) pg/mL Total Protein (6.4-8.2) g/dL Albumin (3.4-5.0) g/dL Globulin g/dL Albumin/Globulin Ratio TSH (0.358-3.740) uIU/mL Serum HCG, Qual (NEGATIVE) Urine Color (YELLOW) Urine Clarity (CLEAR) Urine pH (5.0-9.0) Ur Specific [place] (1.005-1.025) Urine Protein (NEG/TRACE) mg/dL Urine Glucose (UA) (NEGATIVE) mg/dL Urine Ketones (NEGATIVE) mg/dL Urine Occult Blood (NEGATIVE) Urine Nitrite (NEGATIVE) Urine Bilirubin (NEGATIVE) Urine Urobilinogen (0.2-1.0) EU/dL Ur Leukocyte Esterase (NEGATIVE) Acetone, Qual (NEGATIVE) POC Glucose 496 H (74-106) mg/dL Imaging Data CT scan - head: Attestation: I have reviewed the pertinent imaging results. Radiologist's impression: ITS Impressions Cervical Spine CT 03/28/24 16:17 IMPRESSION: No acute intracranial process is identified. No acute fracture. Electronically authenticated by: MICHAEL HENNING Date: 03/28/2024 17:46 Chest CTA 03/28/24 16:17 IMPRESSION:No evidence of pulmonary embolus or acute intrathoracic abnormality. Electronically authenticated by: BIRDIE LAUREN Date: 03/28/2024 18:[address] 03/28/24 16:17 IMPRESSION: No acute intracranial process is identified. No acute fracture. Electronically authenticated by: MICHAEL HENNING Date: 03/28/2024 17:46 ECG Data Attestation: I personally reviewed and interpreted this ECG as follows: (Sinus tachycardia at a rate of 132, no acute ST elevation or ectopy. EKG reviewed by attending physician) Discharge Plan Discharge Chief Complaint: Chest Pain Clinical Impression: Headache, Chest pain, Paresthesia, Hyperglycemia, Syncope Patient Disposition: Admitted as Observation Time of Disposition Decision: 19:28 Condition: Good
[2024-03-28 16:42] LABS: Basophils Percent Auto 0.8 % (0.2-2.0); Eosinophils Absolute Auto 0.1 10^3/uL (0.0-0.7); Eosinophils Percent Auto 1.8 % (0.9-7.0); Hematocrit 42.1 % (36.0-48.0); Hemoglobin 14.1 g/dL (12.0-16.0); Immature Granulocytes Abs Auto 0.01 10^3/uL (0.00-0.03); Immature Granulocytes Pct Auto 0.2 % (0.0-0.5); Lymphocytes Absolute Auto 1.7 10^3/uL (1.2-3.8); Lymphocytes Percent Auto 34.5 % (20.5-60.0); Mean Corpuscular HGB Conc 33.5 g/dL (29.9-35.2); Mean Corpuscular Hemoglobin 28.8 pg (26.7-34.0); Mean Corpuscular Volume 86.1 fL (81.0-99.0); Mean Platelet Volume 9.9 fL (9.5-13.5); Monocytes Absolute Auto 0.4 10^3/uL (0.3-0.8); Monocytes Percent Auto 8.6 % (1.7-12.0); Neutrophils Absolute Auto 2.7 10^3/uL (1.4-6.5); Neutrophils Percent Auto 54.1 % (43.0-75.0); Platelet Count 208 10^3/uL (150-450); Red Blood Count 4.89 10^6/uL (4.20-5.40); Red Cell Distribution Width 13.5 % (11.0-15.0)
[2024-03-28] MEDS: 0.9 % SODIUM CHLORIDE 1,000 ML 999 ML IV ×2 (16:45→18:34)
[2024-03-28] MEDS: DIPHENHYDRAMINE HCL 50 MG/ML VIAL 25 MG IV (16:46)
[2024-03-28] MEDS: METOCLOPRAMIDE HCL 10 MG/2 ML VIAL IVP (16:47)
[2024-03-28] MEDS: LORAZEPAM 2 MG/ML VIAL 0.5 MG IV (16:47)
[2024-03-28 16:52] LABS: Erythrocyte Sedimentation Rate 72 mm/hr (<=20); HCG Qualitative NEGATIVE (NEGATIVE); Internal Control Within Normal Limits
[2024-03-28 16:53] LABS: C Reactive Protein <0.50 mg/dL (<=0.50)
[2024-03-28 16:55] LABS: INR 0.98; Prothrombin Time 10.4 sec (9.0-11.6)
[2024-03-28 17:08] LABS: Alanine Aminotransferase 30 U/L (14-59); Albumin Globulin Ratio 0.9; Albumin Level 3.8 g/dL (3.4-5.0); Alkaline Phosphatase 108 U/L (46-116); Anion Gap 13.3; Aspartate Amino Transferase 21 U/L (15-37); BUN Creatinine Ratio 5.7; Bilirubin Total 0.5 mg/dL (0.2-1.0); Calcium 9.7 mg/dL (8.5-10.1); Carbon Dioxide 26.3 mmol/L (21.0-32.0); Chloride 94 mmol/L (98-107); Estimated GFR (African America 57 (>=60); Estimated GFR (Non-African Ame 47 (>=60); Potassium 3.6 mmol/L (3.5-5.1); Sodium 130 mmol/L (136-145); Thyroid Stimulating Hormone 8.598 uIU/mL (0.358-3.740); Total Protein 7.8 g/dL (6.4-8.2); Troponin I High Sensitivity <4.0 pg/mL (4.0-51.3)
[2024-03-28 17:12] LABS: Glucose 672 mg/dL (74-106); Lactate/Lactic Acid 3.3 mmol/L (0.4-2.0)
[2024-03-28 17:20] LABS: Acetone NEGATIVE (NEGATIVE)
[2024-03-28 17:38] LABS: Bilirubin Urine NEGATIVE (NEGATIVE); Blood Urine NEGATIVE (NEGATIVE); Clarity Urine CLEAR (CLEAR); Color Urine LT. YELLOW (YELLOW); Glucose Urine UA >=1000 mg/dL (NEGATIVE); Ketones Urine 15 mg/dL (NEGATIVE); Leukocyte Esterase Urine NEGATIVE (NEGATIVE); Nitrite Urine NEGATIVE (NEGATIVE); Protein Urine NEGATIVE (NEG/TRACE); Specific Gravity Urine <=1.005 (1.005-1.025); Urobilinogen Urine 0.2 EU/dL (0.2-1.0)
[2024-03-28 17:39] LABS: Urine Microscopic Indicated NO
[2024-03-28] MEDS: INSULIN REGULAR, HUMAN (100 UNIT/ML) 10 ML MDV 15 UNIT SUBQ (17:41)
[2024-03-28] MEDS: BUTALB/ACETAMINOPHEN/CAFFEINE 50-325-40MG TABLET 1 TAB PO (17:42)
[2024-03-28] MEDS: MAGNESIUM SULFATE IN WATER 2 GM/50 ML PREMIX IV (17:43)
[2024-03-28 17:52] LABS: pH VBG 7.375 (7.330-7.430)
[2024-03-28 17:53] LABS: PCO2 VBG 44.3 mmHg (40.0-52.0)
[2024-03-28 18:12] LABS: Glucometer 496 mg/dL (74-106)
--- NOTE | 2024-03-28 18:13 | PC.NURSE ---
Patient states headache is not any better. Patient playing a game on Ipad. Education provided to patient that playing on electronics can cause increased headaches due to eye straining and the lights. Patient states understanding. Patient states well the last time I was here, the doctor gave me Dilaudid I think that would help my headache. Education given on rebound headaches, patient states understanding. Physician notified of no change in pain and patients request of Dilaudid. No orders received.
--- NOTE | 2024-03-28 19:08 | PC.NURSE ---
i walked into this patient' room to find patient awake and alert sitting upright on the bed. this patient aware that she will be admitted here to this hospital. this patient's daughter is here in the room
[2024-03-28] MEDS: CLOPIDOGREL BISULFATE 75 MG TABLET 300 MG PO (19:30)
[2024-03-28 21:57] LABS: Glucometer 223 mg/dL (74-106)
[2024-03-28] MEDS: METOPROLOL TARTRATE 25 MG TABLET 50 MG PO (22:30)
[2024-03-28] MEDS: DULOXETINE HCL 60 MG CAPSULE.DR PO (22:30)
[2024-03-28] MEDS: BUSPIRONE HCL 15 MG TABLET PO (22:31)
[2024-03-28] MEDS: ARIPIPRAZOLE 5 MG TABLET 20 MG PO (22:31)
[2024-03-28] MEDS: INSULIN ASPART 300 UNIT/3 ML PEN SUBQ (22:32)
[2024-03-28] MEDS: TRAZODONE HCL 50 MG TABLET 200 MG PO (22:34)
[2024-03-28] MEDS: GABAPENTIN 300 MG CAPSULE 600 MG PO (22:35)
[2024-03-28] MEDS: OXYCODONE HCL/ACETAMINOPHEN 5MG/325MG 1 TAB PO (22:42)
[2024-03-28] MEDS: TIZANIDINE HCL 4 MG TABLET PO (22:43)
[2024-03-28] MEDS: 0.9 % SODIUM CHLORIDE 1,000 ML 100 ML IV (23:42)
[2024-03-29] VITALS (12 sets, daily range): BP systolic 93–120; BP diastolic 61–84; PULSE 79–103; TEMP 36.4–36.8; O2SAT 91–93
[2024-03-29 01:28] LABS: Glucometer 286 mg/dL (74-106)
[2024-03-29] MEDS: INSULIN ASPART 300 UNIT/3 ML PEN SUBQ ×4 (01:28→13:04)
[2024-03-29] MEDS: GABAPENTIN 300 MG CAPSULE 600 MG PO ×2 (05:38→13:03)
[2024-03-29] MEDS: OMEPRAZOLE 40 MG CAPSULE.DR PO (05:38)
[2024-03-29] MEDS: BUSPIRONE HCL 15 MG TABLET PO ×2 (05:38→13:03)
[2024-03-29 05:42] LABS: Glucometer 198 mg/dL (74-106)
[2024-03-29 06:55] LABS: Hematocrit 38.4 % (36.0-48.0); Hemoglobin 12.8 g/dL (12.0-16.0); Mean Corpuscular HGB Conc 33.3 g/dL (29.9-35.2); Mean Corpuscular Hemoglobin 28.8 pg (26.7-34.0); Mean Corpuscular Volume 86.5 fL (81.0-99.0); Mean Platelet Volume 9.2 fL (9.5-13.5); Platelet Count 180 10^3/uL (150-450); Red Blood Count 4.44 10^6/uL (4.20-5.40); Red Cell Distribution Width 13.8 % (11.0-15.0); White Blood Count 4.6 10^3/uL (4.0-11.0)
--- NOTE | 2024-03-29 07:00 | MR_ITS ---
The [address] [address] Patient Name: GISEL PAT MRN: [id number] date: 1975 Sex: F Assigned Patient Location: [place] Current Patient Location: [place] Accession/Order Number: [id number] Exam Date: 03/29/2024 10:50 Report Date: 03/29/2024 13:05 At the request of: MIL SANCHEZ Procedure: MR head/brain wo con EXAM: MRI of the brain without IV contrast. REASON FOR EXAM: Syncope, Headache COMPARISON: CT scan dated 03/28/2024 FINDINGS: No intracranial masses. No abnormal restricted diffusion or evidence of evolving infarct. No evidence of intracranial hemorrhage. No hydrocephalus. No significant abnormal parenchymal signal abnormalities. Paranasal sinuses and mastoid air cells are clear. Remainder unremarkable. MR/MR head/brain wo con IMPRESSION: Unremarkable brain MRI. Electronically authenticated by: REAGAN JEFFERSON Date: 03/29/2024 13:05
--- NOTE | 2024-03-29 07:00 | CA_ITS ---
Patient Name: GISEL PAT MR#: [id number] : 1975 Exam Date: 03/29/2024 Ordering Doctor: MIL SANCHEZ ECHOCARDIOGRAM REPORT PROCEDURE: CA ECHO DOPPLER COMPLETE INDICATIONS: Syncope, chest pain, hypertension, uncontrolled blood sugar COMPARISON: None. DESCRIPTION: COMPLETE ECHOCARDIOGRAM Real-time transthoracic echocardiography with 2D, M-mode, spectral and color flow Doppler performed. QUALITY: Technical quality was adequate. LEFT VENTRICLE: Normal chamber size. Mild left ventricular hypertrophy. LV EF: Global left ventricular systolic function is hyperdynamic; visually estimated ejection fraction is 65 to 70%. No significant wall motion abnormalities. DIASTOLIC: Unable to assess diastolic function. ATRIAL SEPTUM: Inadequately seen. LEFT ATRIUM: Normal chamber size. RIGHT ATRIUM: Normal chamber size. RIGHT VENTRICLE: Normal chamber size. Normal right ventricular systolic function. TRICUSPID VALVE: Normal mobility and thickness. No stenosis with no regurgitation. Unable to assess right-sided pressures due to lack of measurable tricuspid regurgitation. MITRAL VALVE: Normal mobility and thickness. No evidence of mitral valve stenosis. There is no mitral annular calcification. No mitral regurgitation. AORTIC VALVE: Normal trileaflet appearance. No visible sclerosis. Normal leaflet mobility. No evidence of aortic valve stenosis. No aortic regurgitation. AORTIC ROOT: Normal diameter and appearance. Ascending aorta is normal in size. PULMONIC VALVE: Not well visualized. PERICARDIUM: No evidence of pericardial effusion. IVC: Not well visualized. CONCLUSION: 1. Global left ventricular systolic function is hyperdynamic; visually estimated ejection fraction is 65 to 70% 2. Normal right ventricular size and systolic function 3. Mild left ventricular hypertrophy 4. Valves are poorly seen; no significant valvular abnormalities Adult Echocardiography Procedure Report Left Ventricle LVEDD (3.7 - 5.6 cm): 4.53 cm LVESD (2.2 - 4.0 cm): 2.98 cm LVIVS thickness (0.6 - 1.2 cm): 1.25 cm LVPW thickness (0.5 - 1.0 cm): 1.28 cm e': 0.07 m/s E - e': 7.30 LVOT Max Gradient: 2.92 mm[Hg] LVOT Area (cm2): 0.85 m/s Peak Velocity (LVOT): 0.85 m/s LVOT Diameter 2.42 cm Left Atrium Left Atrium Systolic Dimension: 3.18 cm Mitral Valve MV E to A Ratio: 0.69 Mitral Valve A-Wave Peak Velocity: 0.75 m/s Mitral Valve E-Wave Peak Velocity: 0.52 m/s Right Ventricle Aorta AO Root Diam: 3.59 cm Ascending Ao Diam: 2.74 cm Aortic Valve AoV Area ([place]): 3.67 cm2, 3.67 cm2 Peak Velocity(Antegrade Flow): 1.07 m/s Peak Gradient(Antegrade Flow): 4.57 mm[Hg] Tricuspid Valve Pulmonic Valve Mean Gradient: 1.57 mm[Hg] Mean Velocity: 0.58 m/s Peak Velocity: 0.90 m/s, 0.86 m/s Peak Gradient: 2.96 mm[Hg], 3.22 mm[Hg] Right Atrium Dictated by: Shayla Leyva M.D. on 03/29/2024 at 17:28 Approved by: Shayla Leyva M.D. on 03/29/2024 at 17:32
[2024-03-29 07:17] LABS: Anion Gap 12.6; Calcium 8.3 mg/dL (8.5-10.1); Carbon Dioxide 24.9 mmol/L (21.0-32.0); Chloride 104 mmol/L (98-107); Estimated GFR (African America >60 (>=60); Estimated GFR (Non-African Ame >60 (>=60); Glucose 203 mg/dL (74-106); Potassium 3.5 mmol/L (3.5-5.1); Sodium 138 mmol/L (136-145); Troponin I High Sensitivity 4.4 pg/mL (4.0-51.3)
[2024-03-29 07:21] LABS: BUN Creatinine Ratio 6.3
[2024-03-29 08:18] LABS: Glucometer 194 mg/dL (74-106)
[2024-03-29] MEDS: 0.9 % SODIUM CHLORIDE 1,000 ML 100 ML IV (08:52)
[2024-03-29] MEDS: METOPROLOL TARTRATE 25 MG TABLET 50 MG PO (08:53)
[2024-03-29] MEDS: CETIRIZINE HCL 10 MG TABLET PO (08:53)
[2024-03-29] MEDS: DULOXETINE HCL 60 MG CAPSULE.DR PO (08:53)
[2024-03-29] MEDS: OLANZapine 5 MG TABLET PO (08:53)
[2024-03-29] MEDS: ACETAMINOPHEN 325 MG TABLET 650 MG PO (08:57)
[2024-03-29 10:34] LABS: Estimated Average Glucose 309 mg/dL; Glycohemoglobin A1C 12.4 % (4.5-6.2)
[2024-03-29 10:42] LABS: Chol HDL Ratio 5.4; Cholesterol 236 mg/dL (<=200); HDL Cholesterol 44 mg/dL (40-60); Triglycerides 432 mg/dL (<=150); VLDL CHOLESTEROL 86.4 mg/dL
[2024-03-29] MEDS: LORAZEPAM 2 MG/ML VIAL IV (10:45)
[2024-03-29 11:13] LABS: LDL Cholesterol Direct 128 mg/dL
--- NOTE | 2024-03-29 11:52 | CM.NOTE ---
Rounds made with Dr. Chacko, discussed with pt about further testing (MRI) to r/o stroke. Pt apprehensive about MRI d/t feeling claustrophobic, Dr. Chacko will order medication prior to MRI to relax pt. Possible discharge to home this afternoon if MRI negative. [place] calling [facility] for pt's stress test results.
[2024-03-29 12:13] LABS: Glucometer 224 mg/dL (74-106)
[2024-03-29] MEDS: PROMETHAZINE HCL 25 MG in 0.9 % SODIUM CHLORIDE 50 ML 204 MG IV (13:03)
[2024-03-29] MEDS: DIPHENHYDRAMINE HCL 50 MG/ML VIAL 25 MG IV (13:03)
[2024-03-29] MEDS: ACETAMINOPHEN 1,000 MG/100 ML PREMIX 400 MG IV (13:03)
[2024-03-29] MEDS: ASPIRIN 81 MG TAB.CHEW PO (13:03)
[2024-03-29] MEDS: TIZANIDINE HCL 4 MG TABLET PO (13:03)
[2024-03-29] MEDS: MAGNESIUM SULFATE IN WATER 2 GM/50 ML PREMIX IV (13:04)
--- NOTE | 2024-03-29 14:56 | P.HP_ITS ---
HPI H&P: HPI History of Present Illness Chief complaint: Left Side Numbness, Chest Pains HEADACHE PARESTHES Narrative: 48-year-old female presented to ER with left-sided headache, associated left upper and lower extremity numbness. She reports that she has had a persistent dull headache, that is pulsating and and has been persistent since Thursday. She denies visual changes, any other neurological symptoms other than left upper and lower extremity numbness. Patient came to ER a few days ago with similar headache and was discharged after she received IV Dilaudid. He also reports that she was experiencing midsternal chest pain associated with heart palpitations. Chest pain was nonexertional in nature and would last for a few seconds. He developed the symptoms yesterday and has not experienced any pain since then. She had a normal nuclear stress test in 2012 at [facility] in [place]. She also reports that for past 1 months she has had multiple episodes of syncope. She reports that she passes out briefly for a few seconds and has no confusion afterwards. Syncope is usually preceded by lightheadedness. She had 2 episode of syncope at work yesterday. Patient has a flat affect and appears depressed. When inquired about her mental health, he reported that her depression is poorly controlled and she is very anxious because of her family situation. She was asked to move out by her parents and she is very worried and anxious about her living situation. She was admitted overnight for observation for possible stroke for her left upper and lower extremity numbness. CT head is negative for acute intracranial pathology. She had a normal CTA chest with no evidence of pulmonary embolism. Cardiac enzymes were negative and her troponin was negative overnight with no abnormal finding on telemetry. 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 she had an MRI brain that did not reveal evidence of acute stroke. She is still complaining of left-sided headache but her numbness is now gone and now instead she is complaining of left upper extremity pain. She was given a migraine cocktail with IV magnesium, acetaminophen, Benadryl and Phenergan and claims that she did not experience any improvement in her headache. She appears drowsy and groggy, appears comfortable and in no acute distress. At this point, there is no need for continued inpatient treatment for this patient and she can follow-up with neurology as an outpatient for migraine headache. Patient is medically stable for discharge. She will need to follow-up with PCP and neurology as outpatient. I will also order a Holter monitor for her to rule out underlying cardiac arrhythmia but I have a low suspicion for it and I suspect this is likely vasovagal syncope. Opioid HPI Opioid Management Most Recent Pain and Opioid Data: Last Pain Scale 6 03/29/24 15:35 Last Pain Assessment 03/29/24 15:35 Last ED Pain Assessment 03/28/24 19:05 Last MAR Pain Assessment 03/29/24 10:49 Last ORT Total Score 3 03/28/24 21:04 Last ORT Risk Category Low Risk 03/28/24 21:04 Ur Phencyclidine Scrn Negative (NEGATIVE) 07/21/23 18:35 Review of Systems ROS Status of ROS 10 or more systems reviewed and unremark able except as noted in history and below [facility] Medical History (Updated 03/29/24 @ 15:50 by Shaikh Ricco MD) Obesity ?E66.9 - Obesity, unspecified (ICD-10) HLD (hyperlipidemia) ?E78.5 - Hyperlipidemia, unspecified (ICD-10) Migraine headache ?G43.909 - Migraine, unspecified, not intractable, without status migrainosus (ICD-10) Depression with anxiety ?F41.8 - Other specified anxiety disorders (ICD-10) UTI (urinary tract infection) ?N39.0 - Urinary tract infection, site not specified (ICD-10) Kidney calculi ?N20.0 - Calculus of kidney (ICD-10) GERD (gastroesophageal reflux disease) ?K21.9 - Gastro-esophageal reflux disease without esophagitis (ICD-10) Diabetes ?E11.9 - Type 2 diabetes mellitus without complications (ICD-10) Surgical History (Updated 03/28/24 @ 21:25 by Minerva Merchant) History of cholecystectomy ?Z90.49 - Acquired absence of other specified parts of digestive tract (ICD- 10) H/O oophorectomy H/O: hysterectomy ?Z90.710 - Acquired absence of both cervix and uterus (ICD-10) Family History (Updated 03/28/24 @ 21:26 by Minerva Merchant) Mother Family history of hypertension Social History (Updated 03/28/24 @ 21:27 by Minerva Merchant) Within the past year, how often did you have a drink containing alcohol: never Score interpretation: A score less than 3 is consistent with normal alcohol consumption. 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 Highest level of school completed/degree received: some college, no degree Are you now , , , , never or living with a partner: In a typical week, how many times do you talk on the telephone with family, friends, or neighbors: 3 or more times per week How often do you get together with friends or relatives: 3 or more times per week How often do you attend latter-day or denominational services: 4 or more times per year Little interest or pleasure in doing things: several days Feeling down, depressed, or hopeless: several days Feel stressed/tense/nervous/anxious/difficulty sleeping: only a little Do you think of yourself as: straight/heterosexual Gender Identity: female Meds Home Medications and Allergies Home Medications ?Medication ?Instructions ?Recorded ?Confirmed ?Type gabapentin 600 mg tablet 600 mg PO Q8H 12/30/22 03/28/24 History insulin aspart U-100 100 unit/mL 35 unit subcut TID 12/30/22 03/28/24 History (3 mL) subcutaneous pen (Novolog FlexPen U-100 Insulin aspart) metoprolol tartrate 25 mg tablet 50 mg PO Q12H 12/30/22 03/28/24 History rosuvastatin 20 mg tablet 20 mg PO BEDTIME 12/30/22 03/28/24 History tizanidine 4 mg tablet 4 mg PO Q8H PRN spasms 12/30/22 03/28/24 History trazodone 100 mg tablet 200 mg PO BEDTIME 12/30/22 03/28/24 History olanzapine 5 mg tablet 5 mg PO DAILY 01/17/23 03/28/24 History duloxetine 60 mg capsule,delayed 60 mg PO BID 07/19/23 03/28/24 History release (Cymbalta) dulaglutide 0.75 mg/0.5 mL 0.75 mg subcut .weekly 07/21/23 03/28/24 History subcutaneous pen injector (Trulicity) insulin glargine 100 unit/mL (3 20 unit subcut QPM 07/21/23 03/28/24 History mL) subcutaneous pen (Lantus Solostar U-100 Insulin) meclizine 25 mg tablet 25 mg PO TID PRN dizziness 07/21/23 03/28/24 History pantoprazole 40 mg tablet,delayed 40 mg PO DAILY 07/21/23 03/28/24 History release albuterol sulfate 90 mcg/actuation 2 inh inhalation Q6H PRN shortness 08/13/23 03/28/24 History aerosol inhaler of breath or wheezing aripiprazole 20 mg tablet 20 mg PO .qhs 08/13/23 03/28/24 History buspirone 15 mg tablet 15 mg PO TID 08/13/23 03/28/24 History hydroxyzine pamoate 50 mg capsule 50 mg PO TID PRN anxiety 08/13/23 03/28/24 History loratadine 10 mg tablet (Allergy 10 mg PO DAILY 03/24/24 03/28/24 History Relief (loratadine)) metformin 500 mg tablet,extended 500 mg PO BID 03/24/24 03/28/24 History release 24 hr naloxone 4 mg/actuation nasal spray 1 spray intranasal Q3M PRN opioid 03/24/24 03/28/24 History overdose oxycodone-acetaminophen 5 mg-325 1 tab PO QPM PRN pain 03/24/24 03/28/24 History mg tablet Allergies Allergy/AdvReac Type Severity Reaction Status Date / Time melon Allergy Severe Anaphylaxis Verified 10/01/23 19:03 fentanyl Allergy Unknown Unknown Verified 03/29/24 12:11 ketorolac [From Toradol] Allergy Unknown Unknown Verified 03/29/24 12:11 meperidine [From Demerol] Allergy Unknown Unknown Verified 03/29/24 12:11 morphine Allergy Unknown Unknown Verified 03/29/24 12:11 nalbuphine [From Nubain] Allergy Unknown Unknown Verified 03/29/24 12:11 Penicillins Allergy Unknown Unknown Verified 03/29/24 12:11 aspirin AdvReac Unknown NOSE BLEEDS Verified 03/29/24 12:11 Exam Constitutional Vital Signs, click to edit/add: Last Vital Signs Temp 97.5 F L 03/29/24 13:52 Pulse 94 H 03/29/24 13:58 Resp 18 03/29/24 13:52 BP 111/76 03/29/24 13:52 Pulse Ox 93 L 03/29/24 13:52 O2 Del Method Room Air 03/29/24 13:52 General appearance: cooperative and comfortable Nutritional appearance: obese HENMT Common normals: normocephalic and head/scalp atraumatic Respiratory Common normals: normal respiratory effort, no use of accessory muscles and clear to auscultation bilaterally Effort & inspection: able to speak in complete sentences Cardio Common normals: regular rate, regular rhythm, S1 normal heart sound and S2 normal heart sound GI Common normals: Normal to inspection, nondistended, normoactive bowel sounds present, soft to palpation, non-tender and no hepatosplenomegaly Extremity Common normals: normal to inspection and full ROM Neuro Common normals: oriented x3, moves all extremities, no focal motor deficits and no sensory deficits noted Psych Common normals: thought process normal, denies homicidal ideation and denies suicidal ideation Speech: slow Mood and affect: depressed mood Thought process: normal thought process Thought content: normal thought content Results Labs Labs: Short CBC 03/28/24 03/29/24 Range/Units 16:33 06:24 WBC 5.0 4.6 (4.0-11.0) 10^3/uL Hgb 14.1 12.8 (12.0-16.0) g/dL Hct 42.1 38.4 (36.0-48.0) % Plt Count 208 180 (150-450) 10^3/uL BMP 03/28/24 03/29/24 16:33 06:24 Sodium 130 L 138 Potassium 3.6 3.5 Chloride 94 L 104 Carbon Dioxide 26.3 24.9 BUN 7.0 4.0 L Creatinine 1.22 H 0.64 Glucose 672 H* 203 H Calcium 9.7 8.3 L Liver Function 03/28/24 Range/Units 16:33 Total Bilirubin 0.5 (0.2-1.0) mg/dL AST 21 (15-37) U/L ALT 30 (14-59) U/L Alkaline Phosphatase 108 (46-116) U/L Albumin 3.8 (3.4-5.0) g/dL Urine 03/28/24 Range/Units 17:30 Urine Color Lt. yellow (YELLOW) Urine Clarity Clear (CLEAR) Urine pH 6.0 (5.0-9.0) Ur Specific [place] <=1.005 A (1.005-1.025) Urine Protein Negative (NEG/TRACE) mg/dL Urine Glucose (UA) >=1000 A (NEGATIVE) mg/dL ABG ABG results: 03/28/24 17:41 VBG pH 7.375 VBG pCO2 44.3 Assessment and Plan Assessment and Plan (1) Hemiplegic migraine with status migrainosus: Assessment and Plan: CTH/MRI normal. Appears comfortable but reports intractable pain. Suspected drug seeking behavior. Needs outpatient f/u with Neurology for treatment of her migraine NAVAS. Needs changes in lifestyle, better control of her mental health illnesses, improved sleep, regular/healthy diet and exercise. For abortive therapy, she will CGRP as Triptans are best avoided for hemiplegic migraine. She can use Excedrin migraine as needed or Motrin as needed for pain Qualifiers: Intractability: intractable Qualified Code(s): G43.411 - Hemiplegic migraine, intractable, with status migrainosus (2) Suspected cerebrovascular accident (CVA): Assessment and Plan: MRI brain negative. No evidence of Stroke. Neurological symptoms likely due to Migraine vs conversion disorder. (3) Syncope and collapse: Assessment and Plan: No acute findings on EKG, cardiac enzymes. No events on tele. Suspect Vasovagal syncope. No acute finding on ECHO Will d/c with Holter Monitor. Needs to f/u with PCP as outpatient. Reports increased anxiety/stress. Could be stress related. (4) Heart palpitations: Assessment and Plan: Intermittent, associated with chest discomfort. Likely anxiety related. No events on tele. no acute findings on EKG. Outpatient Holter (5) Chest pain: Assessment and Plan: Negative enzymes. Normal EKG. Likely anxiety related. Qualifiers: Chest pain type: other chest pain Qualified Code(s): R07.89 - Other chest pain (6) Type 2 diabetes mellitus with hyperglycemia: Assessment and Plan: Poorly controlled, non compliant with diet and medications. F/u with PCP. C/w home regimen. 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 She denies SI/HI. She will benefit from adjustment in her medications. Defer to PCP. (8) HLD (hyperlipidemia): Assessment and Plan: LDL above goal. on Crestor. Suspect non compliance. Qualifiers: Hyperlipidemia type: unspecified Qualified Code(s): E78.5 - Hyperlipidemia, unspecified (9) Obesity: Assessment and Plan: Recommended lifestyle measures, weight loss. Qualifiers: Obesity type: due to excess calories Obesity classification: adult class 3 (BMI >= 40) Serious obesity comorbidity presence: without serious comorbidity Body mass index: BMI 40.0-44.9 Qualified Code(s): E66.813 - Obesity, class 3; E66.01 - Morbid (severe) obesity due to excess calories; Z68.41 - Body mass index [BMI] 40.0-44.9, adult
[2024-03-29 16:20] LABS: Glucometer 366 mg/dL (74-106)
--- NOTE | 2024-03-31 14:16 | CM.DCFOLLOWU ---
1st attempt 03/31/24
== END 2024-03-29 18:02 | disposition home or self-care (01) ==
LOC: ER 19:37 → MS 20:58
PROVIDERS: Physician Assistant; Registered Nurse; Admitting Provider Internal Medicine; Emergency Provider Emergency Medicine; Visit Provider Internal Medicine
DX: G43.411 Hemiplegic migraine, intractable, with status migrainosus (principal); R55 Syncope and collapse; R00.2 Palpitations; R07.89 Other chest pain; F32.A Depression, unspecified; F41.9 Anxiety disorder, unspecified; E78.5 Hyperlipidemia, unspecified; E66.01 Morbid (severe) obesity due to excess calories; Z68.41 Body mass index [BMI] 40.0-44.9, adult; E11.65 Type 2 diabetes mellitus with hyperglycemia; Z79.4 Long term (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 of insulin; Z79.84 Long term (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 of oral hypoglycemic drugs; Z79.899 Other long term (current) drug therapy
CPT/HCPCS: 36415; 70450; 70551; 71275; 72125; 80048; 80053; 80061; 81003; 82009; 82800; 82948; 83036; 83605; 83721; 83880; 84443; 84484; 84703; 85025; 85027; 85610; 85652; 86140; 93005; 93242; 93306; 96361; 96365; 96367; 96368; 96375; 96376; 99285; G0378; J0131; J1200; J1817; J2060; J2250; J2765; J3475; Q3014; Q9967

== ENCOUNTER 2024-06-02 14:39 | Emergency (ER) | payer MEDICAID, SELFPAY ==
[2024-06-02 14:53] VITALS: BP 182/109; PULSE 106; TEMP 36.9; O2SAT 97; BMI 42.3
--- NOTE | 2024-06-02 16:04 | ED_ITS ---
HPI - Chest Pain General Chief Complaint: Chest Pain Stated Complaint: CHEST PAIN Time Seen by Provider: 06/02/24 16:01 Source: patient Mode of arrival: walk-in Limitations: no limitations History of Present Illness HPI narrative: 49-year-old female presents for chest pain. She has had this pressure in the upper part of her chest since this morning continuously and occasionally she will get a zinger that goes over towards her left shoulder. No trauma or unusual activity. No back pain or weakness or numbness in her arms. No palpitations or fever. She has no history of heart disease. Related Data Home Medications ?Medication ?Instructions ?Recorded ?Confirmed gabapentin 600 mg tablet 600 mg PO Q8H 12/30/22 06/02/24 insulin aspart U-100 100 unit/mL 35 unit subcut TID 12/30/22 06/02/24 (3 mL) subcutaneous pen (Novolog FlexPen U-100 Insulin aspart) metoprolol tartrate 25 mg tablet 50 mg PO Q12H 12/30/22 06/02/24 rosuvastatin 20 mg tablet 20 mg PO BEDTIME 12/30/22 06/02/24 tizanidine 4 mg tablet 4 mg PO Q8H PRN spasms 12/30/22 06/02/24 trazodone 100 mg tablet 200 mg PO BEDTIME 12/30/22 06/02/24 olanzapine 5 mg tablet 5 mg PO DAILY 01/17/23 06/02/24 duloxetine 60 mg capsule,delayed 60 mg PO BID 07/19/23 06/02/24 release (Cymbalta) dulaglutide 0.75 mg/0.5 mL 0.75 mg subcut .weekly 07/21/23 06/02/24 subcutaneous pen injector (Trulicity) insulin glargine 100 unit/mL (3 20 unit subcut QPM 07/21/23 06/02/24 mL) subcutaneous pen (Lantus Solostar U-100 Insulin) meclizine 25 mg tablet 25 mg PO TID PRN dizziness 07/21/23 06/02/24 pantoprazole 40 mg tablet,delayed 40 mg PO DAILY 07/21/23 06/02/24 release albuterol sulfate 90 mcg/actuation 2 inh inhalation Q6H PRN shortness 08/13/23 06/02/24 aerosol inhaler of breath or wheezing aripiprazole 20 mg tablet 20 mg PO .qhs 08/13/23 06/02/24 buspirone 15 mg tablet 15 mg PO TID 08/13/23 06/02/24 hydroxyzine pamoate 50 mg capsule 50 mg PO TID PRN anxiety 08/13/23 06/02/24 loratadine 10 mg tablet (Allergy 10 mg PO DAILY 03/24/24 06/02/24 Relief (loratadine)) metformin 500 mg tablet,extended 500 mg PO BID 03/24/24 06/02/24 release 24 hr naloxone 4 mg/actuation nasal spray 1 spray intranasal Q3M PRN opioid 03/24/24 06/02/24 overdose Allergies Allergy/AdvReac Type Severity Reaction Status Date / Time melon Allergy Severe Anaphylaxis Verified 06/02/24 14:56 fentanyl Allergy Unknown Unknown Verified 06/02/24 14:56 ketorolac (From Toradol) Allergy Unknown Unknown Verified 06/02/24 14:56 meperidine (From Demerol) Allergy Unknown Unknown Verified 06/02/24 14:56 morphine Allergy Unknown Unknown Verified 06/02/24 14:56 nalbuphine (From Nubain) Allergy Unknown Unknown Verified 06/02/24 14:56 Penicillins Allergy Unknown Unknown Verified 06/02/24 14:56 aspirin AdvReac Unknown NOSE BLEEDS Verified 06/02/24 14:56 Review of Systems ROS Narrative A ten point review of systems is negative except as noted above. [facility] Medical History (Updated 06/02/24 @ 18:32 by Yefri Gasca MD) Syncope ?R55 - Syncope and collapse (ICD-10) Headache ?R51.9 - Headache, unspecified (ICD-10) Obesity ?E66.9 - Obesity, unspecified (ICD-10) HLD (hyperlipidemia) ?E78.5 - Hyperlipidemia, unspecified (ICD-10) Migraine headache ?G43.909 - Migraine, unspecified, not intractable, without status migrainosus (ICD-10) Depression with anxiety ?F41.8 - Other specified anxiety disorders (ICD-10) UTI (urinary tract infection) ?N39.0 - Urinary tract infection, site not specified (ICD-10) Kidney calculi ?N20.0 - Calculus of kidney (ICD-10) GERD (gastroesophageal reflux disease) ?K21.9 - Gastro-esophageal reflux disease without esophagitis (ICD-10) Diabetes ?E11.9 - Type 2 diabetes mellitus without complications (ICD-10) Surgical History (Updated 03/28/24 @ 21:25 by Minerva Merchant) History of cholecystectomy ?Z90.49 - Acquired absence of other specified parts of digestive tract (ICD- 10) H/O oophorectomy H/O: hysterectomy ?Z90.710 - Acquired absence of both cervix and uterus (ICD-10) Family History (Updated 03/28/24 @ 21:26 by Minerva Merchant) Mother Family history of hypertension Social History (Updated 03/28/24 @ 21:27 by Minerva Merchant) Within the past year, how often did you have a drink containing alcohol: never Score interpretation: A score less than 3 is consistent with normal alcohol consumption. 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 Highest level of school completed/degree received: some college, no degree Are you now , , , , never or living with a partner: In a typical week, how many times do you talk on the telephone with family, friends, or neighbors: 3 or more times per week How often do you get together with friends or relatives: 3 or more times per week How often do you attend yazdanism or anabaptism services: 4 or more times per year Little interest or pleasure in doing things: not at all Feeling down, depressed, or hopeless: not at all Feel stressed/tense/nervous/anxious/difficulty sleeping: only a little Do you think of yourself as: straight/heterosexual Gender Identity: female Exam Narrative Exam Narrative: Nurses note and vital signs reviewed and patient is not hypoxic. General: The patient appears well and in no apparent distress. Patient is resting comfortably on cart. Skin: Warm, dry, no pallor noted. There is no rash noted. Head: Normocephalic, atraumatic Eye: Normal conjunctiva, no drainage Ears, Nose, Mouth, and Throat: oral mucosa is moist. Nares patent. Cardiovascular: Regular Rate and Rhythm Respiratory: Patient is in no distress, no accessory muscle use, lungs are clear to auscultation, no wheezing, rales or rhonchi Back: non-tender GI: Soft and nontender Musculoskeletal: The patient has no evidence of calf tenderness, no pitting edema, symmetrical pulses noted bilaterally Neurological: A&O, normal speech Psychiatric: Cooperative Constitutional Vital Signs, click to edit/add: Last Vital Signs Temp 98.4 F 06/02/24 14:53 Pulse 98 H 06/02/24 17:25 Resp 18 06/02/24 17:25 BP 162/82 H 06/02/24 17:25 Pulse Ox 98 06/02/24 17:25 O2 Del Method Room Air 06/02/24 14:53 Course Vital Signs Vital signs: Vital Signs Temperature 98.4 F 06/02/24 14:53 Pulse Rate 106 H 06/02/24 14:53 Respiratory Rate 20 06/02/24 14:53 Blood Pressure 182/109 H 06/02/24 14:53 Pulse Oximetry 97 06/02/24 14:53 Oxygen Delivery Method Room Air 06/02/24 14:53 Temperature 98.4 F 06/02/24 14:53 Pulse Rate 98 H 06/02/24 17:25 Respiratory Rate 18 06/02/24 17:25 Blood Pressure 162/82 H 06/02/24 17:25 Pulse Oximetry 98 06/02/24 17:25 Oxygen Delivery Method Room Air 06/02/24 14:53 MDM - Chest Pain MDM Narrative Medical decision making narrative: The patient's workup including 2 sets of troponin is negative. D-dimer also normal. At this point I do not suspect cardiac etiology and there is no evidence of pulmonary embolism. She is able to be discharged home, follow-up with her PCP if symptoms persist. Treatment diagnosis and follow-up were discussed with the patient. Differential Diagnosis Differential diagnosis: Likely pneumothorax, atypical chest pain, st elevation myocardial infarction, costochondritis, chest pain and other (Pulmonary embolism) Medical Records Data Attestation: I reviewed the patient's medical records. Lab Data Attestation: I reviewed the patient's lab results. Labs: Lab Results 06/02/24 06/02/24 Range/Units 16:15 17:21 WBC 8.6 (4.0-11.0) 10^3/uL RBC 4.66 (4.20-5.40) 10^6/uL Hgb 13.4 (12.0-16.0) g/dL Hct 41.1 (36.0-48.0) % MCV 88.2 (81.0-99.0) fL MCH 28.8 (26.7-34.0) pg MCHC 32.6 (29.9-35.2) g/dL RDW 13.4 (11.0-15.0) % Plt Count 181 (150-450) 10^3/uL MPV 9.0 L (9.5-13.5) fL Neut % (Auto) 69.1 (43.0-75.0) % Lymph % (Auto) 19.5 L (20.5-60.0) % [place] % (Auto) 6.1 (1.7-12.0) % Eos % (Auto) 4.1 (0.9-7.0) % Baso % (Auto) 1.0 (0.2-2.0) % Neut # (Auto) 6.0 (1.4-6.5) 10^3/uL Lymph # (Auto) 1.7 (1.2-3.8) 10^3/uL [place] # (Auto) 0.5 (0.3-0.8) 10^3/uL Eos # (Auto) 0.4 (0.0-0.7) 10^3/uL Baso # (Auto) 0.1 (0.0-0.1) 10^3/uL Abs Immat Gran (auto) 0.02 (0.00-0.03) 10^3/uL Imm/Tot Granulo (auto) 0.2 (0.0-0.5) % D-Dimer 0.46 (<=0.59) mg/L FEU Sodium 139 (136-145) mmol/L Potassium 4.0 (3.5-5.1) mmol/L Chloride 104 (98-107) mmol/L Carbon Dioxide 29.4 (21.0-32.0) mmol/L Anion Gap 9.6 BUN 15.0 (7.0-18.0) mg/dL Creatinine 0.93 (0.55-1.02) mg/dL Est GFR ( Amer) >60 (>=60 mL/min/1.73m^2) Est GFR (Non-Af Amer) >60 (>=60 mL/min/1.73m^2) BUN/Creatinine Ratio 16.1 Glucose 280 H (74-106) mg/dL Calcium 9.0 (8.5-10.1) mg/dL Troponin I High Sens <4.0 L <4.0 L (4.0-51.3) pg/mL Imaging Data Chest x-ray: Radiologist's impression: ITS Impressions Chest X-Ray 06/02/24 16:04 Impression: No radiographic evidence of acute cardiopulmonary process. Electronically authenticated by: BIRDIE LAUREN Date: 06/02/2024 17:18 ECG Data Attestation: I personally reviewed and interpreted this ECG as follows: (EKG on my interpretation shows sinus rhythm with a rate of 107 and no acute changes.) Heart Score History: Slightly/Non-Suspicious ECG: Normal Age: >45-<65 years Risk Factors: 1 or 2 Risk Factors Troponin: <Normal Limit Total Heart Score Recommendations & Risks:: 2 Discharge Plan Discharge Chief Complaint: Chest Pain Clinical Impression: Chest pain Patient Disposition: Home, Self-Care Time of Disposition Decision: 18:32 Condition: Good Mode of Transportation: Private Vehicle Prescriptions / Home Meds: No Action olanzapine 5 mg tablet 5 mg PO DAILY Rx Instructions: HS duloxetine [Cymbalta] 60 mg capsule,delayed release(DR/EC) 60 mg PO BID Trulicity 0.75 mg/0.5 mL pen injector 0.75 mg SUBCUT .weekly insulin glargine [Lantus Solostar U-100 Insulin] 100 unit/mL (3 mL) insulin pen 20 unit SUBCUT QPM meclizine 25 mg tablet 25 mg PO TID PRN (Reason: dizziness) pantoprazole 40 mg tablet,delayed release (DR/EC) 40 mg PO DAILY hydroxyzine pamoate 50 mg capsule 50 mg PO TID PRN (Reason: anxiety) albuterol sulfate 90 mcg/actuation HFA aerosol inhaler 2 inh INHALATION Q6H PRN (Reason: shortness of breath or wheezing) buspirone 15 mg tablet 15 mg PO TID aripiprazole 20 mg tablet 20 mg PO .qhs loratadine [Allergy Relief (loratadine)] 10 mg tablet 10 mg PO DAILY metformin 500 mg tablet extended release 24 hr 500 mg PO BID naloxone 4 mg/actuation spray,non-aerosol 1 spray INTRANASAL Q3M PRN (Reason: opioid overdose) gabapentin 600 mg tablet 600 mg PO Q8H insulin aspart U-100 [Novolog FlexPen U-100 Insulin] 100 unit/mL (3 mL) insulin pen 35 unit SUBCUT TID Patient Comments: plus sliding scale metoprolol tartrate 25 mg tablet 50 mg PO Q12H rosuvastatin 20 mg tablet 20 mg PO BEDTIME tizanidine 4 mg tablet 4 mg PO Q8H PRN (Reason: spasms) trazodone 100 mg tablet 200 mg PO BEDTIME Print Language: Turkmen Instructions: Chest Pain (ED) Referrals: Physician,Non-Staff, MD [Primary Care Provider] - 1 week
--- NOTE | 2024-06-02 16:04 | XR_ITS ---
The [address] [address] Patient Name: GISEL PAT MRN: [id number] date: 1975 Sex: F Assigned Patient Location: ER Current Patient Location: ER Accession/Order Number: [id number] Exam Date: 06/02/2024 16:28 Report Date: 06/02/2024 17:18 At the request of: LEROY JOYCE Procedure: XR chest 1V EXAM: XR chest 1V HISTORY: Chest pain COMPARISON: 03/28/2024 TECHNIQUE: Chest X-ray AP, 1 view FINDINGS: Support devices: None. Lungs/pleura: No consolidation, effusion, or pneumothorax. Heart and mediastinum: Normal contours. Bones: No acute abnormality identified. XR/XR chest 1V Impression: No radiographic evidence of acute cardiopulmonary process. Electronically authenticated by: BIRDIE LAUREN Date: 06/02/2024 17:18
--- NOTE | 2024-06-02 16:04 | ECG_ITS ---
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
[2024-06-02 16:22] LABS: Basophils Absolute Auto 0.1 10^3/uL (0.0-0.1); Eosinophils Absolute Auto 0.4 10^3/uL (0.0-0.7); Eosinophils Percent Auto 4.1 % (0.9-7.0); Hematocrit 41.1 % (36.0-48.0); Hemoglobin 13.4 g/dL (12.0-16.0); Immature Granulocytes Abs Auto 0.02 10^3/uL (0.00-0.03); Immature Granulocytes Pct Auto 0.2 % (0.0-0.5); Lymphocytes Absolute Auto 1.7 10^3/uL (1.2-3.8); Lymphocytes Percent Auto 19.5 % (20.5-60.0); Mean Corpuscular HGB Conc 32.6 g/dL (29.9-35.2); Mean Corpuscular Hemoglobin 28.8 pg (26.7-34.0); Mean Corpuscular Volume 88.2 fL (81.0-99.0); Monocytes Absolute Auto 0.5 10^3/uL (0.3-0.8); Monocytes Percent Auto 6.1 % (1.7-12.0); Neutrophils Percent Auto 69.1 % (43.0-75.0); Platelet Count 181 10^3/uL (150-450); Red Blood Count 4.66 10^6/uL (4.20-5.40); Red Cell Distribution Width 13.4 % (11.0-15.0); White Blood Count 8.6 10^3/uL (4.0-11.0)
[2024-06-02 16:42] LABS: Anion Gap 9.6; BUN Creatinine Ratio 16.1; Carbon Dioxide 29.4 mmol/L (21.0-32.0); Chloride 104 mmol/L (98-107); Estimated GFR (African America >60 (>=60 mL/min/1.73m^2); Estimated GFR (Non-African Ame >60 (>=60 mL/min/1.73m^2); Glucose 280 mg/dL (74-106); Sodium 139 mmol/L (136-145); Troponin I High Sensitivity <4.0 pg/mL (4.0-51.3)
[2024-06-02 16:44] LABS: D Dimer 0.46 mg/L FEU (<=0.59)
[2024-06-02 17:25] VITALS: BP 162/82; PULSE 98; O2SAT 98
[2024-06-02 17:48] LABS: Troponin I High Sensitivity <4.0 pg/mL (4.0-51.3)
[2024-06-02] MEDS: lidocaine HCL 15 ML, MAG HYDROX/ALUMINUM HYD/SIMETH 30 ML, HYOSCYAMINE SULFATE 0.25 MG PO (18:01)
[2024-06-02 18:54] VITALS: BP 132/88; PULSE 88; O2SAT 98
== END 2024-06-02 18:55 | disposition home or self-care (01) ==
PROVIDERS: Emergency Provider Emergency Medicine
DX: R07.9 Chest pain, unspecified (principal)
CPT/HCPCS: 36415; 71045; 80048; 84484; 85025; 85378; 93005; 99285

== ENCOUNTER 2024-06-08 07:59 | Outpatient (RCR) | payer MEDICAID, SELFPAY | END 2024-06-28 14:42 | disposition home or self-care (01) | LOC: PT 07:59 | DX: M54.2 Cervicalgia (principal); Z98.1 Arthrodesis status; G89.29 Other chronic pain; M54.12 Radiculopathy, cervical region | CPT/HCPCS: 97010; 97012; 97014; 97140; 97163 ==

== ENCOUNTER 2024-06-29 08:04 | Outpatient (RCR) | payer MEDICAID, SELFPAY | END 2024-09-09 10:30 | disposition home or self-care (01) | LOC: PT 08:04 | PROVIDERS: Visit Provider Nurse Practitioner | DX: M54.12 Radiculopathy, cervical region (principal); Z98.1 Arthrodesis status; M54.2 Cervicalgia; G89.29 Other chronic pain | CPT/HCPCS: 97010; 97012; 97014; 97110; 97140 ==

== ENCOUNTER 2024-07-30 06:00 | Outpatient (RCR) | payer OTHER, SELFPAY | END 2024-09-09 08:51 | disposition home or self-care (01) | LOC: PT 06:00 | PROVIDERS: Visit Provider Nurse Practitioner | DX: M54.2 Cervicalgia (principal); G89.29 Other chronic pain; M54.12 Radiculopathy, cervical region; Z98.1 Arthrodesis status | CPT/HCPCS: 97010; 97012; 97014; 97110; 97140 ==

== ENCOUNTER 2024-08-07 19:59 | Emergency (ER) | payer OTHER, SELFPAY ==
[2024-08-07 20:03] VITALS: BP 149/93; PULSE 106; TEMP 36.6; O2SAT 99; BMI 93.2
--- NOTE | 2024-08-07 20:11 | XR_ITS ---
The [address] [address] Patient Name: GISEL PAT MRN: [id number] date: 1975 Sex: F Assigned Patient Location: ER Current Patient Location: Accession/Order Number: [id number] Exam Date: 08/07/2024 20:26 Report Date: 08/07/2024 22:09 At the request of: LEROY JOYCE Procedure: XR shoulder LT min 2V XR shoulder LT min 2V: HISTORY: fall fall COMPARISON: None available. TECHNIQUE: 3 views of the left shoulder are submitted FINDINGS: BONES/JOINT SPACES: There is no acute fracture or dislocation. The joint spaces are well-maintained. SOFT TISSUES: There is a calcific density along the distal humerus. XR/XR shoulder LT min 2V IMPRESSION: No acute fractures of the left shoulder. Electronically authenticated by: ANAMARIA GAN Date: 08/07/2024 22:09
--- NOTE | 2024-08-07 20:15 | ED.GENADUL1 ---
HPI HPI - General Adult General Chief complaint: Back Pain/Injury Stated complaint: Flank Pain Time Seen by Provider: 08/07/24 20:07 Source: patient Mode of arrival: law enforcement Limitations: no limitations History of Present Illness HPI narrative: 49-year-old female presents for 2 issues. First she fell almost a week ago when she hurt her left shoulder. She points to the anterior surface of the left shoulder. It hurts to move it but she is able to do so. Second yesterday she developed right flank pain and thinks she might be passing a kidney stone. No dysuria or hematuria and she did not hurt her right flank when she fell almost a week ago. Related Data Home Medications ?Medication ?Instructions ?Recorded ?Confirmed gabapentin 600 mg tablet 600 mg PO Q8H 12/30/22 08/07/24 metoprolol tartrate 25 mg tablet 50 mg PO Q12H 12/30/22 08/07/24 tizanidine 4 mg tablet 4 mg PO Q8H PRN spasms 12/30/22 08/07/24 trazodone 100 mg tablet 200 mg PO BEDTIME 12/30/22 08/07/24 olanzapine 5 mg tablet 5 mg PO BID 01/17/23 08/07/24 duloxetine 60 mg capsule,delayed 60 mg PO DAILY 07/19/23 08/07/24 release (Cymbalta) insulin glargine 100 unit/mL (3 40 unit subcut QPM 07/21/23 08/07/24 mL) subcutaneous pen (Lantus Solostar U-100 Insulin) meclizine 25 mg tablet 25 mg PO TID PRN dizziness 07/21/23 08/07/24 albuterol sulfate 90 mcg/actuation 2 inh inhalation Q6H PRN shortness 08/13/23 08/07/24 aerosol inhaler of breath or wheezing aripiprazole 20 mg tablet 20 mg PO .qhs 08/13/23 08/07/24 hydroxyzine pamoate 50 mg capsule 50 mg PO TID PRN anxiety 08/13/23 08/07/24 loratadine 10 mg tablet (Allergy 10 mg PO DAILY 03/24/24 08/07/24 Relief (loratadine)) naloxone 4 mg/actuation nasal spray 1 spray intranasal Q3M PRN opioid 03/24/24 08/07/24 overdose acetaminophen 500 mg tablet 500 mg PO TID PRN pain 08/07/24 08/07/24 cholecalciferol (vitamin D3) 25 25 mcg PO QWEEK 08/07/24 08/07/24 mcg (1,000 unit) tablet colesevelam 625 mg tablet 625 mg PO BID 08/07/24 08/07/24 dicyclomine 10 mg capsule 10 mg PO TID 08/07/24 08/07/24 empagliflozin 25 mg tablet 25 mg PO DAILY 08/07/24 08/07/24 (Jardiance) fluticasone propionate 50 2 spray intranasal DAILY 08/07/24 08/07/24 mcg/actuation nasal spray,suspension lidocaine 5 % topical patch 1 patch topical .Q12HRs 08/07/24 08/07/24 oxycodone-acetaminophen 5 mg-325 1 tab PO QPM PRN pain 08/07/24 08/07/24 mg tablet promethazine 25 mg tablet 25 mg PO Q6H PRN nausea and 08/07/24 08/07/24 vomiting rosuvastatin 40 mg tablet 40 mg PO DAILY 08/07/24 08/07/24 tamsulosin 0.4 mg capsule 0.4 mg PO DAILY 08/07/24 08/07/24 tirzepatide 7.5 mg/0.5 mL 7.5 mg subcut QWEEK 08/07/24 08/07/24 subcutaneous pen injector (Mounjaro) Allergies Allergy/AdvReac Type Severity Reaction Status Date / Time melon Allergy Severe Anaphylaxis Verified 08/07/24 20:07 fentanyl Allergy Unknown Unknown Verified 08/07/24 20:07 ketorolac (From Toradol) Allergy Unknown Unknown Verified 08/07/24 20:07 meperidine (From Demerol) Allergy Unknown Unknown Verified 08/07/24 20:07 morphine Allergy Unknown Unknown Verified 08/07/24 20:07 nalbuphine (From Nubain) Allergy Unknown Unknown Verified 08/07/24 20:07 Penicillins Allergy Unknown Unknown Verified 08/07/24 20:07 aspirin AdvReac Unknown NOSE BLEEDS Verified 08/07/24 20:07 Opioid HPI Opioid Management Most Recent Opioid Data: Last Pain Scale 6 03/29/24 15:35 03/29/24 Last ORT Total Score 3 03/28/24 21:04 03/28/24 Last ORT Risk Category Low Risk 03/28/24 21:04 03/28/24 Ur Phencyclidine Scrn Negative (NEGATIVE) 07/21/23 18:35 07/21/23 Review of Systems ROS Narrative A ten point review of systems is negative except as noted above. [facility] Medical History (Updated 08/07/24 @ 21:19 by Yefri Gasca MD) Syncope ?R55 - Syncope and collapse (ICD-10) Headache ?R51.9 - Headache, unspecified (ICD-10) Obesity ?E66.9 - Obesity, unspecified (ICD-10) HLD (hyperlipidemia) ?E78.5 - Hyperlipidemia, unspecified (ICD-10) Migraine headache ?G43.909 - Migraine, unspecified, not intractable, without status migrainosus (ICD-10) Depression with anxiety ?F41.8 - Other specified anxiety disorders (ICD-10) UTI (urinary tract infection) ?N39.0 - Urinary tract infection, site not specified (ICD-10) Kidney calculi ?N20.0 - Calculus of kidney (ICD-10) GERD (gastroesophageal reflux disease) ?K21.9 - Gastro-esophageal reflux disease without esophagitis (ICD-10) Diabetes ?E11.9 - Type 2 diabetes mellitus without complications (ICD-10) Surgical History (Updated 03/28/24 @ 21:25 by Minerva Merchant) History of cholecystectomy ?Z90.49 - Acquired absence of other specified parts of digestive tract (ICD-10) H/O oophorectomy H/O: hysterectomy ?Z90.710 - Acquired absence of both cervix and uterus (ICD-10) Family History (Updated 03/28/24 @ 21:26 by Minerva Merchant) Mother Family history of hypertension Social History (Updated 03/28/24 @ 21:27 by Minerva Merchant) Within the past year, how often did you have a drink containing alcohol: never Score interpretation: A score less than 3 is consistent with normal alcohol consumption. 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 Highest level of school completed/degree received: some college, no degree Are you now , , , , never or living with a partner: In a typical week, how many times do you talk on the telephone with family, friends, or neighbors: 3 or more times per week How often do you get together with friends or relatives: 3 or more times per week How often do you attend zoroastrian or scientologist services: 4 or more times per year Little interest or pleasure in doing things: not at all Feeling down, depressed, or hopeless: not at all Feel stressed/tense/nervous/anxious/difficulty sleeping: only a little Do you think of yourself as: straight/heterosexual Gender Identity: female Exam Narrative Exam Narrative: Nurses note and vital signs reviewed and patient is not hypoxic. General: The patient appears in no apparent distress. Skin: Warm, dry, no pallor noted. There is no rash noted. Head: Normocephalic, atraumatic Eye: Normal conjunctiva, no drainage Ears, Nose, Mouth, and Throat: oral mucosa is moist. Nares patent. Cardiovascular: Regular Rate and Rhythm Respiratory: Patient is in no distress, no accessory muscle use, lungs are clear to auscultation, no wheezing, rales or rhonchi Back: No bruise or rash in the right flank area. No palpable tenderness. GI: Soft and nontender Musculoskeletal: The left shoulder has no deformity or bruise or rash or abrasion. It has full range of motion. She is fully able to abduct her arm. Neurological: A&O, normal speech Psychiatric: Cooperative Constitutional Vital Signs, click to edit/add: Last Vital Signs Temp 97.9 F 08/07/24 20:03 Pulse 106 H 08/07/24 20:03 Resp 16 08/07/24 20:03 BP 149/93 H 08/07/24 20:03 Pulse Ox 99 08/07/24 20:03 O2 Del Method Room Air 08/07/24 20:03 Course Vital Signs Vital signs: Vital Signs Temperature 97.9 F 08/07/24 20:03 Pulse Rate 106 H 08/07/24 20:03 Respiratory Rate 16 08/07/24 20:03 Blood Pressure 149/93 H 08/07/24 20:03 Pulse Oximetry 99 08/07/24 20:03 Oxygen Delivery Method Room Air 08/07/24 20:03 Temperature 97.9 F 08/07/24 20:03 Pulse Rate 106 H 08/07/24 20:03 Respiratory Rate 16 08/07/24 20:03 Blood Pressure 149/93 H 08/07/24 20:03 Pulse Oximetry 99 08/07/24 20:03 Oxygen Delivery Method Room Air 08/07/24 20:03 Medical Decision Making MDM Narrative Medical decision making narrative: X-ray was ordered and performed. CT scan was ordered and the patient decided she did not want to stay any longer. She is fully able to make medical decisions for herself. Differential Diagnosis Differential Diagnosis: Kidney stone, UTI, muscle strain, shoulder Lab Data Lab results reviewed: Yes I reviewed the patient's lab results Labs: Lab Results 08/07/24 Range/Units 20:20 Urine Color Yellow (YELLOW) Urine Clarity Clear (CLEAR) Urine pH 6.0 (5.0-9.0) Ur Specific [place] 1.015 (1.005-1.025) Urine Protein Negative (NEG/TRACE) mg/dL Urine Glucose (UA) >=1000 A (NEGATIVE) mg/dL Urine Ketones Trace A (NEGATIVE) mg/dL Urine Occult Blood Large A (NEGATIVE) Urine Nitrite Negative (NEGATIVE) Urine Bilirubin Negative (NEGATIVE) Urine Urobilinogen 0.2 (0.2-1.0) EU/dL Ur Leukocyte Esterase Trace A (NEGATIVE) Urine RBC 10-20 A (0-2) #/HPF Urine WBC 2-5 A (NONE SEEN) #/HPF Ur Squamous Epith Cells Moderate A (NONE/RARE) #/LPF Ur Transition Epith Cell Rare A (NONE SEEN) #/LPF Urine Crystals None seen (None Seen) #/HPF Urine Bacteria Small A (NONE SEEN) #/HPF Urine Casts None seen (NONE SEEN) #/LPF Urine Mucus None seen (NONE SEEN) Ur Culture Indicated? Yes Discharge Plan Discharge Stand Alone Forms: Portal Instructions Chief Complaint: Back Pain/Injury Clinical Impression: Left against medical advice, Right flank pain, Acute pain of left shoulder Patient Disposition: Left Against Medical Advice Time of Disposition Decision: 21:19 Condition: Good Mode of Transportation: Private Vehicle Prescriptions / Home Meds: No Action olanzapine 5 mg tablet 5 mg PO BID Rx Instructions: HS duloxetine [Cymbalta] 60 mg capsule,delayed release(DR/EC) 60 mg PO DAILY insulin glargine [Lantus Solostar U-100 Insulin] 100 unit/mL (3 mL) insulin pen 40 unit SUBCUT QPM meclizine 25 mg tablet 25 mg PO TID PRN (Reason: dizziness) hydroxyzine pamoate 50 mg capsule 50 mg PO TID PRN (Reason: anxiety) albuterol sulfate 90 mcg/actuation HFA aerosol inhaler 2 inh INHALATION Q6H PRN (Reason: shortness of breath or wheezing) aripiprazole 20 mg tablet 20 mg PO .qhs loratadine [Allergy Relief (loratadine)] 10 mg tablet 10 mg PO DAILY naloxone 4 mg/actuation spray,non-aerosol 1 spray INTRANASAL Q3M PRN (Reason: opioid overdose) gabapentin 600 mg tablet 600 mg PO Q8H metoprolol tartrate 25 mg tablet 50 mg PO Q12H tizanidine 4 mg tablet 4 mg PO Q8H PRN (Reason: spasms) trazodone 100 mg tablet 200 mg PO BEDTIME acetaminophen 500 mg tablet 500 mg PO TID PRN (Reason: pain) cholecalciferol (vitamin D3) 25 mcg (1,000 unit) tablet 25 mcg PO QWEEK colesevelam 625 mg tablet 625 mg PO BID dicyclomine 10 mg capsule 10 mg PO TID Jardiance 25 mg tablet 25 mg PO DAILY fluticasone propionate 50 mcg/actuation spray,suspension 2 spray INTRANASAL DAILY lidocaine 5 % adhesive patch,medicated 1 patch topical .Q12HRs Patient Comments: 12 on and 12 off oxycodone-acetaminophen 5-325 mg tablet 1 tab PO QPM PRN (Reason: pain) promethazine 25 mg tablet 25 mg PO Q6H PRN (Reason: nausea and vomiting) rosuvastatin 40 mg tablet 40 mg PO DAILY tamsulosin 0.4 mg capsule 0.4 mg PO DAILY Mounjaro 7.5 mg/0.5 mL pen injector 7.5 mg SUBCUT QWEEK Print Language: Czech Instructions: Flank Pain (ED), Shoulder Pain (ED) Referrals: Physician,Non-Staff, MD [Primary Care Provider] - 1 week
--- NOTE | 2024-08-07 20:30 | PC.NURSE ---
no redness, bruising or swelling to site. skin intact and ROM limited
[2024-08-07 20:34] LABS: Bilirubin Urine NEGATIVE (NEGATIVE); Blood Urine LARGE (NEGATIVE); Clarity Urine CLEAR (CLEAR); Color Urine YELLOW (YELLOW); Glucose Urine UA >=1000 mg/dL (NEGATIVE); Ketones Urine TRACE mg/dL (NEGATIVE); Leukocyte Esterase Urine TRACE (NEGATIVE); Nitrite Urine NEGATIVE (NEGATIVE); Protein Urine NEGATIVE (NEG/TRACE); Specific Gravity Urine 1.015 (1.005-1.025); Urobilinogen Urine 0.2 EU/dL (0.2-1.0)
[2024-08-07 20:40] LABS: Bacteria Urine SMALL #/HPF (NONE SEEN); Mucus Urine NONE SEEN (NONE SEEN); Squamous Epithelial Cell Urine MODERATE #/LPF (NONE/RARE)
[2024-08-07 20:41] LABS: Cast Seen? NONE SEEN #/LPF (NONE SEEN); Crystals Seen? None Seen #/HPF (None Seen); Transitional Epi Cells Urine RARE #/LPF (NONE SEEN); Urine Culture Indicated YES
== END 2024-08-07 21:24 | disposition left against medical advice (07) ==
PROVIDERS: Emergency Provider Emergency Medicine
DX: R10.9 Unspecified abdominal pain (principal); Z53.29 Procedure and treatment not carried out because of patient's decision for other reasons; Z90.49 Acquired absence of other specified parts of digestive tract; Z90.710 Acquired absence of both cervix and uterus; M25.512 Pain in left shoulder; Z91.81 History of falling
CPT/HCPCS: 73030; 81001; 87086; 99284

== ENCOUNTER 2024-09-22 14:39 | Outpatient (RCR) | payer OTHER, SELFPAY | END 2024-11-10 13:53 | disposition home or self-care (01) | LOC: PT 14:39 | PROVIDERS: Visit Provider Nurse Practitioner | DX: M54.2 Cervicalgia (principal); Z98.1 Arthrodesis status; M25.511 Pain in right shoulder; G89.29 Other chronic pain; M25.512 Pain in left shoulder | CPT/HCPCS: 97010; 97014; 97110; 97140; 97163 ==

== ENCOUNTER 2024-11-14 16:29 | Emergency (ER) | payer OTHER, SELFPAY ==
[2024-11-14] VITALS (15 sets, daily range): BP systolic 119; BP diastolic 87; PULSE 86–91; TEMP 36.9; O2SAT 93–96; BMI 39.2
--- NOTE | 2024-11-14 16:45 | ECG_ITS ---
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 Measurements Intervals [place] Rate: 87 P: 43 MN: 166 QRS: 1 QRSD: 88 T: 59 QT: 370 QTc: 414 Interpretive Statements 1100 Sinus rhythm 8003 Consistent with pulmonary disease 8102 Low QRS voltage in chest leads 9150 abnormal ECG Compared to ECG 06/02/2024 15:02:18 No significant changes Electronically Signed On 11-14-2024 17:53:55 EDT by DANIEL BLAS M.D.
--- NOTE | 2024-11-14 17:01 | PC.NURSE ---
Pt presents to ER in a c-collar via EMS after a fall at home Pt states she got dizzy and fell hitting her left shoulder and her head on the back left side Pt had rotator cuff surgery on that shoulder on Thursday and is in a sling Pt denies loss of consciousness and states these dizzy episodes are normal for her Pt complains of pain to her head and worsened shoulder pain
--- NOTE | 2024-11-14 17:13 | ED.FALL1 ---
HPI HPI - Fall General Chief Complaint: Fall Stated Complaint: fall Time Seen by Provider: 11/14/24 16:40 Source: patient Mode of arrival: ambulance Limitations: no limitations History of Present Illness HPI Narrative: The patient is a 49-year-old female who was recently just had a left shoulder rotator cuff surgery, she is coming to the ER after she had a fall at home, patient is coming by the EMS she have a neck collar in place. The patient apparently was getting out of the bed when she felt dizzy and she fell backward hitting the wall behind her. There was no loss of consciousness and the patient mentioned that she usually have chronic dizziness The patient denies any nausea vomiting or any other concerns she has been taking her Percocet almost every 4 hours and obviously she is sleepy when I evaluated her which could be secondary to effect of opiate Related Data Home Medications ?Medication ?Instructions ?Recorded ?Confirmed gabapentin 600 mg tablet 600 mg PO Q8H 12/30/22 11/14/24 metoprolol tartrate 25 mg tablet 50 mg PO Q12H 12/30/22 11/14/24 tizanidine 4 mg tablet 4 mg PO Q8H PRN spasms 12/30/22 11/14/24 trazodone 100 mg tablet 200 mg PO BEDTIME 12/30/22 11/14/24 olanzapine 5 mg tablet 5 mg PO BID 01/17/23 11/14/24 duloxetine 60 mg capsule,delayed 60 mg PO DAILY 07/19/23 11/14/24 release (Cymbalta) insulin glargine 100 unit/mL (3 40 unit subcut QPM 07/21/23 11/14/24 mL) subcutaneous pen (Lantus Solostar U-100 Insulin) meclizine 25 mg tablet 25 mg PO TID PRN dizziness 07/21/23 11/14/24 hydroxyzine pamoate 50 mg capsule 50 mg PO TID PRN anxiety 08/13/23 11/14/24 loratadine 10 mg tablet (Allergy 10 mg PO DAILY 03/24/24 11/14/24 Relief (loratadine)) naloxone 4 mg/actuation nasal spray 1 spray intranasal Q3M PRN opioid 03/24/24 08/07/24 overdose cholecalciferol (vitamin D3) 25 25 mcg PO QWEEK 08/07/24 11/14/24 mcg (1,000 unit) tablet colesevelam 625 mg tablet 625 mg PO BID 08/07/24 11/14/24 empagliflozin 25 mg tablet 25 mg PO DAILY 08/07/24 11/14/24 (Jardiance) lidocaine 5 % topical patch 1 patch topical .Q12HRs 08/07/24 11/14/24 oxycodone-acetaminophen 5 mg-325 1 tab PO QPM PRN pain 08/07/24 11/14/24 mg tablet promethazine 25 mg tablet 25 mg PO Q6H PRN nausea and 08/07/24 11/14/24 vomiting rosuvastatin 40 mg tablet 40 mg PO DAILY 08/07/24 11/14/24 tirzepatide 7.5 mg/0.5 mL 7.5 mg subcut QWEEK 08/07/24 11/14/24 subcutaneous pen injector (Prestonro) blood-glucose sensor (FreeStyle 11/14/24 11/14/24 Myron 3 Sensor device) ondansetron HCl 4 mg tablet mg 11/14/24 pantoprazole 40 mg tablet,delayed mg PO 11/14/24 release trazodone 300 mg tablet mg 11/14/24 Allergies Allergy/AdvReac Type Severity Reaction Status Date / Time melon Allergy Severe Anaphylaxis Verified 11/14/24 16:37 fentanyl Allergy Unknown Unknown Verified 11/14/24 16:37 ketorolac (From Toradol) Allergy Unknown Unknown Verified 11/14/24 16:37 meperidine (From Demerol) Allergy Unknown Unknown Verified 11/14/24 16:37 morphine Allergy Unknown Unknown Verified 11/14/24 16:37 nalbuphine (From Nubain) Allergy Unknown Unknown Verified 11/14/24 16:37 Penicillins Allergy Unknown Unknown Verified 11/14/24 16:37 aspirin AdvReac Unknown NOSE BLEEDS Verified 11/14/24 16:37 Opioid HPI Opioid Management Most Recent Pain and Opioid Data: Last Pain Scale 6 03/29/24, 15:35 Last ED Pain Assessment Today, 17:00 Last ORT Total Score 3 03/28/24, 21:04 Last ORT Risk Category Low Risk 03/28/24, 21:04 Ur Phencyclidine Scrn, (NEGATIVE) Negative 07/21/23, 18:35 Review of Systems ROS Status of ROS 10 or more systems reviewed and unremarkable except as noted in history and below [facility] Medical History (Updated 11/14/24 @ 18:35 by Hallie Laguerre MD) Syncope ?R55 - Syncope and collapse (ICD-10) Headache ?R51.9 - Headache, unspecified (ICD-10) Obesity ?E66.9 - Obesity, unspecified (ICD-10) HLD (hyperlipidemia) ?E78.5 - Hyperlipidemia, unspecified (ICD-10) Migraine headache ?G43.909 - Migraine, unspecified, not intractable, without status migrainosus (ICD-10) Depression with anxiety ?F41.8 - Other specified anxiety disorders (ICD-10) UTI (urinary tract infection) ?N39.0 - Urinary tract infection, site not specified (ICD-10) Kidney calculi ?N20.0 - Calculus of kidney (ICD-10) GERD (gastroesophageal reflux disease) ?K21.9 - Gastro-esophageal reflux disease without esophagitis (ICD-10) Diabetes ?E11.9 - Type 2 diabetes mellitus without complications (ICD-10) Surgical History (Updated 03/28/24 @ 21:25 by Minerva Merchant) History of cholecystectomy ?Z90.49 - Acquired absence of other specified parts of digestive tract (ICD-10) H/O oophorectomy H/O: hysterectomy ?Z90.710 - Acquired absence of both cervix and uterus (ICD-10) Family History (Updated 03/28/24 @ 21:26 by Minerva Merchant) Mother Family history of hypertension Social History (Updated 03/28/24 @ 21:27 by Minerva Merchant) Within the past year, how often did you have a drink containing alcohol: never Score interpretation: A score less than 3 is consistent with normal alcohol consumption. 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 Highest level of school completed/degree received: some college, no degree Are you now , , , , never or living with a partner: In a typical week, how many times do you talk on the telephone with family, friends, or neighbors: 3 or more times per week How often do you get together with friends or relatives: 3 or more times per week How often do you attend alevism or quaker services: 4 or more times per year Little interest or pleasure in doing things: not at all Feeling down, depressed, or hopeless: not at all Feel stressed/tense/nervous/anxious/difficulty sleeping: only a little Do you think of yourself as: straight/heterosexual Gender Identity: female Exam Narrative Exam Narrative: Nurses notes and vital signs reviewed and patient is not hypoxic. General: Well-appearing and in no apparent distress. Skin: Warm, dry, no pallor noted. No rash. Head: Normocephalic, atraumatic. Neck: Neck collar in place mid intervertebral line tenderness at the mid cervical area Cardiovascular: Regular Rate and Rhythm without murmur, gallop or rub. Respiratory: No accessory muscle use or respiratory distress. Lungs are clear to auscultation, no wheezing, rales or rhonchi Chest Wall: no tenderness Back: No midline thoracic or lumbar vertebral tenderness. No CVA tenderness Musculoskeletal: normal ROM, no calf or popliteal tenderness, the patient have a healing wound in the left shoulder, with the range of movement preserved as per before the fall GI: Abdomen is soft, non-distended. Normal bowel sounds. No masses appreciated. No tenderness to palpation. No rebound, guarding, or rigidity noted. Neurological: A&O x4. No cranial nerve dysfunction observed. Constitutional Vital Signs, click to edit/add: Last Vital Signs Temp 98.4 F 11/14/24 16:30 Pulse 89 11/14/24 18:00 Resp 25 H 11/14/24 18:00 BP 119/87 11/14/24 16:31 Pulse Ox 96 11/14/24 16:30 O2 Del Method Room Air 11/14/24 16:30 Course Vital Signs Vital signs: Vital Signs Temperature 98.4 F 11/14/24 16:30 Pulse Rate 87 11/14/24 16:30 Respiratory Rate 20 11/14/24 16:30 Blood Pressure 119/87 11/14/24 16:30 Pulse Oximetry 96 11/14/24 16:30 Oxygen Delivery Method Room Air 11/14/24 16:30 Temperature 98.4 F 11/14/24 16:30 Pulse Rate 89 11/14/24 18:00 Respiratory Rate 25 H 11/14/24 18:00 Blood Pressure 119/87 11/14/24 16:31 Pulse Oximetry 96 11/14/24 16:30 Oxygen Delivery Method Room Air 11/14/24 16:30 MDM - Fall MDM Narrative Medical decision making narrative: Upon arrival there is a high suspicion that the patient presentation is mostly secondary to overtake of her Percocet The patient EKG in the ER showing sinus rhythm with a heart rate of [address] elevation or depression The patient had a x-ray of the left shoulder showing no acute pathology in addition to a CT of the cervical spine and CT of the head also showing no acute pathology CBC and chemistry showed no acute significant pathology--- I did explain to the patient multiple times that her presentation could be secondary to the overuse of the pain medication After being here for few hours the patient started complaining of pain she was provided with 1 dose of Percocet but again she was instructed about the importance of not overtaking her medication The patient was discharged home with instruction that in case of any increasing headache or any nausea vomiting or any other complaints she is to come back to the ER The patient is to follow up with primary care physician in next 2-3 days or to return to the emergency department should any of the signs or symptoms worsen or new symptoms develop. The patient agrees with the following Diagnosis and Treatment plan and the patient will be discharged home. Lab Data Labs: Lab Results 11/14/24 Range/Units 18:01 WBC 7.1 (4.0-11.0) 10^3/uL RBC 4.65 (4.20-5.40) 10^6/uL Hgb 12.7 (12.0-16.0) g/dL Hct 39.6 (36.0-48.0) % MCV 85.2 (81.0-99.0) fL MCH 27.3 (26.7-34.0) pg MCHC 32.1 (29.9-35.2) g/dL RDW 14.3 (11.0-15.0) % Plt Count 168 (150-450) 10^3/uL MPV 8.9 L (9.5-13.5) fL Neut % (Auto) 66.6 (43.0-75.0) % Lymph % (Auto) 20.3 L (20.5-60.0) % [place] % (Auto) 8.0 (1.7-12.0) % Eos % (Auto) 4.6 (0.9-7.0) % Baso % (Auto) 0.4 (0.2-2.0) % Neut # (Auto) 4.7 (1.4-6.5) 10^3/uL Lymph # (Auto) 1.5 (1.2-3.8) 10^3/uL [place] # (Auto) 0.6 (0.3-0.8) 10^3/uL Eos # (Auto) 0.3 (0.0-0.7) 10^3/uL Baso # (Auto) 0.0 (0.0-0.1) 10^3/uL Abs Immat Gran (auto) 0.01 (0.00-0.03) 10^3/uL Imm/Tot Granulo (auto) 0.1 (0.0-0.5) % Sodium 140 (136-145) mmol/L Potassium 4.2 (3.5-5.1) mmol/L Chloride 102 (98-107) mmol/L Carbon Dioxide 33.1 H (21.0-32.0) mmol/L Anion Gap 9.1 BUN 13.0 (7.0-18.0) mg/dL Creatinine 0.85 (0.55-1.02) mg/dL Est GFR ( Amer) >60 (>=60 mL/min/1.73m^2) Est GFR (Non-Af Amer) >60 (>=60 mL/min/1.73m^2) BUN/Creatinine Ratio 15.3 Glucose 206 H (74-106) mg/dL Calcium 9.6 (8.5-10.1) mg/dL Total Bilirubin 0.5 (0.2-1.0) mg/dL AST 10 L (15-37) U/L ALT 23 (14-59) U/L Alkaline Phosphatase 95 (46-116) U/L Troponin I High Sens <4.0 L (4.0-51.3) pg/mL Total Protein 7.7 (6.4-8.2) g/dL Albumin 3.2 L (3.4-5.0) g/dL Globulin 4.5 g/dL Albumin/Globulin Ratio 0.7 Discharge Plan Discharge Chief Complaint: Fall Clinical Impression: Fall, Acute head trauma Patient Disposition: Home, Self-Care Time of Disposition Decision: 18:34 Prescriptions / Home Meds: No Action olanzapine 5 mg tablet 5 mg PO BID Rx Instructions: HS duloxetine [Cymbalta] 60 mg capsule,delayed release(DR/EC) 60 mg PO DAILY insulin glargine [Lantus Solostar U-100 Insulin] 100 unit/mL (3 mL) insulin pen 40 unit SUBCUT QPM meclizine 25 mg tablet 25 mg PO TID PRN (Reason: dizziness) hydroxyzine pamoate 50 mg capsule 50 mg PO TID PRN (Reason: anxiety) loratadine [Allergy Relief (loratadine)] 10 mg tablet 10 mg PO DAILY naloxone 4 mg/actuation spray,non-aerosol 1 spray INTRANASAL Q3M PRN (Reason: opioid overdose) ondansetron HCl 4 mg tablet pantoprazole 40 mg tablet,delayed release (DR/EC) PO trazodone 300 mg tablet (DME) FreeStyle Myron 3 Sensor Device MISCELLANEOUS gabapentin 600 mg tablet 600 mg PO Q8H metoprolol tartrate 25 mg tablet 50 mg PO Q12H tizanidine 4 mg tablet 4 mg PO Q8H PRN (Reason: spasms) trazodone 100 mg tablet 200 mg PO BEDTIME cholecalciferol (vitamin D3) 25 mcg (1,000 unit) tablet 25 mcg PO QWEEK colesevelam 625 mg tablet 625 mg PO BID Jardiance 25 mg tablet 25 mg PO DAILY lidocaine 5 % adhesive patch,medicated 1 patch topical .Q12HRs Patient Comments: 12 on and 12 off oxycodone-acetaminophen 5-325 mg tablet 1 tab PO QPM PRN (Reason: pain) promethazine 25 mg tablet 25 mg PO Q6H PRN (Reason: nausea and vomiting) rosuvastatin 40 mg tablet 40 mg PO DAILY Mounjaro 7.5 mg/0.5 mL pen injector 7.5 mg SUBCUT QWEEK Print Language: Nigerian Referrals: Physician,Non-Staff, MD [Primary Care Provider] - 1 week
[2024-11-14 18:09] LABS: Basophils Percent Auto 0.4 % (0.2-2.0); Eosinophils Absolute Auto 0.3 10^3/uL (0.0-0.7); Eosinophils Percent Auto 4.6 % (0.9-7.0); Hematocrit 39.6 % (36.0-48.0); Hemoglobin 12.7 g/dL (12.0-16.0); Immature Granulocytes Abs Auto 0.01 10^3/uL (0.00-0.03); Immature Granulocytes Pct Auto 0.1 % (0.0-0.5); Lymphocytes Absolute Auto 1.5 10^3/uL (1.2-3.8); Lymphocytes Percent Auto 20.3 % (20.5-60.0); Mean Corpuscular HGB Conc 32.1 g/dL (29.9-35.2); Mean Corpuscular Hemoglobin 27.3 pg (26.7-34.0); Mean Corpuscular Volume 85.2 fL (81.0-99.0); Mean Platelet Volume 8.9 fL (9.5-13.5); Monocytes Absolute Auto 0.6 10^3/uL (0.3-0.8); Neutrophils Absolute Auto 4.7 10^3/uL (1.4-6.5); Neutrophils Percent Auto 66.6 % (43.0-75.0); Platelet Count 168 10^3/uL (150-450); Red Blood Count 4.65 10^6/uL (4.20-5.40); Red Cell Distribution Width 14.3 % (11.0-15.0); White Blood Count 7.1 10^3/uL (4.0-11.0)
[2024-11-14 18:24] LABS: Alanine Aminotransferase 23 U/L (14-59); Albumin Globulin Ratio 0.7; Albumin Level 3.2 g/dL (3.4-5.0); Alkaline Phosphatase 95 U/L (46-116); Anion Gap 9.1; Aspartate Amino Transferase 10 U/L (15-37); BUN Creatinine Ratio 15.3; Bilirubin Total 0.5 mg/dL (0.2-1.0); Calcium 9.6 mg/dL (8.5-10.1); Carbon Dioxide 33.1 mmol/L (21.0-32.0); Chloride 102 mmol/L (98-107); Estimated GFR (African America >60 (>=60 mL/min/1.73m^2); Estimated GFR (Non-African Ame >60 (>=60 mL/min/1.73m^2); Globulin 4.5 g/dL; Glucose 206 mg/dL (74-106); Potassium 4.2 mmol/L (3.5-5.1); Sodium 140 mmol/L (136-145); Total Protein 7.7 g/dL (6.4-8.2)
[2024-11-14 18:28] LABS: Troponin I High Sensitivity <4.0 pg/mL (4.0-51.3)
[2024-11-14] MEDS: OXYCODONE HCL/ACETAMINOPHEN 5MG/325MG 1 TAB PO (18:46)
== END 2024-11-14 18:54 | disposition home or self-care (01) ==
PROVIDERS: Emergency Provider Emergency Medicine
DX: S09.90XA Unspecified injury of head, initial encounter (principal); W18.39XA Other fall on same level, initial encounter; Z98.890 Other specified postprocedural states; Z90.49 Acquired absence of other specified parts of digestive tract; Z90.710 Acquired absence of both cervix and uterus
CPT/HCPCS: 36415; 70450; 72125; 73030; 80053; 84484; 85025; 93005; 99285

== ENCOUNTER 2024-12-06 06:57 | Outpatient (RCR) | payer OTHER, SELFPAY | END 2025-05-17 14:51 | disposition home or self-care (01) | LOC: PT 06:57 | PROVIDERS: Visit Provider Orthopaedic Surgery | DX: M25.512 Pain in left shoulder (principal) | CPT/HCPCS: 97010; 97014; 97110; 97140; 97162 ==

== ENCOUNTER 2025-03-04 09:24 | Emergency (ER) | payer OTHER, SELFPAY ==
[2025-03-04 09:30] VITALS: BP 115/81; PULSE 101; TEMP 36.8; O2SAT 97; BMI 42.3
--- OUTSIDE RECORDS SUMMARY | 2025-03-04 09:35 | XMS_ITS | Clinical Summary ---
Author Organization [facility] Address [facility] [place] [address] Care Team Providers Care Leave Specialist Name Role Phone Skye Jones CNP Primary Care Provider [phone] Allergies Active Allergy Reactions Criticality Noted Date Comments Aspirin Other (See Comments) Low 04/23/2011 Pt states gives me nosebleeds (epistaxis) Ciprofloxacin Hives,Rash Medium 11/07/2019 Fentanyl Rash High 12/22/2017 Other reaction(s): Hives, Hives/Urticaria Ketorolac Hives,Itching Medium 06/17/2013 Melon Swelling 02/26/2024 Meperidine Hives Medium 06/17/2013 Morphine Hives Medium 12/22/2017 Patient tolerates hydromorphone other narcotic allergies Nalbuphine Hives Medium 06/17/2013 04/05/24-per Dr. Marlow, pt tolerates oxy other narcotic allergies Penicillins Hives Medium 07/08/2020 Tolerates cefazolin, ceftriaxone 04/05/24-per Dr. Marlow, pt tolerates cefadroxil 3:55pm Medications traZODone (DESYREL) 300 MG tablet Take 1 (one) tablet (300 mg total) by mouth nightly . 05/22/20 21 Active blood-glucose meter kit 1 kit by Other route 4 (four) times a day before meals and nightly . 06/19/20 21 Active tiZANidine (ZANAFLEX) 4 MG tablet Take 1 (one) tablet (4 mg total) by mouth 2 (two) times a day . 11/28/19 22 Active UltiCare Pen Needle 32 gauge x 5/32 Ndle USE 1 PEN NEEDLE 4 TIMES DAILY BEFORE MEAL(S) AND NIGHTLY 10/26/19 22 Active gabapentin (NEURONTIN) 600 MG tabletIndicat ions:neuropat hic pain Take 1 (one) tablet (600 mg total) by mouth 2 (two) times a day Reasons: neuropathic pain. 11/20/19 22 Active promethazine (PHENERGAN) 25 MG tablet Take 1 (one) tablet (25 mg total) by mouth every 6 (six) hours as needed for nausea . 10 tablet 2 12:44 PM EDT 12/07/19 22 Active rosuvastatin (CRESTOR) 40 MG tablet Take 1 (one) tablet (40 mg total) by mouth daily . Active OLANZapine (ZYPREXA) 5 MG tablet Take 1 (one) tablet (5 mg total) by mouth 2 (two) times a day as needed . Active ARIPiprazole (ABILIFY) 20 MG tablet Take 1 (one) tablet (20 mg total) by mouth nightly . Active insulin glargine (LANTUS) 100 unit/mL injection Inject 40 (forty) Units under the skin nightly . Active loratadine (CLARITIN) 10 mg tablet Take 1 (one) tablet (10 mg total) by mouth daily . Active DULoxetine (CYMBALTA) 60 MG capsule Take 1 (one) capsule (60 mg total) by mouth 2 (two) times a day . 12/11/19 23 Active naloxone (NARCAN) 4 mg/actuation Tovey Administer 1 spray into one nostril for known or suspected opioid overdose. If patient worsens or does not respond, may repeat in 2-3 minutes. . 2 each 1 02/28/20 24 Active hydrOXYzine (VISTARIL) 50 MG capsule Take 1 (one) capsule (50 mg total) by mouth every 6 (six) hours as needed for anxiety . Active albuterol 90 mcg/actuation inhaler Inhale 2 (two) puffs every 6 (six) hours as needed for wheezing . Active insulin lispro (AdmeLOG,Nicky LOG) 100 unit/mL injection Inject 35 (thirty five) Units under the skin 3 (three) times a day before meals . Active pantoprazole (PROTONIX) 40 MG tablet Take 1 (one) tablet (40 mg total) by mouth daily . Active meclizine (ANTIVERT) 25 mg tablet Take 1 (one) tablet (25 mg total) by mouth 3 (three) times a day as needed for nausea . Active Mounjaro 7.5 mg/0.5 mL Pen 0.5 mL (7.5 mg total) by abdominal subcutaneous route once a week Thursday . 06/08/20 24 Active metoprolol tartrate (LOPRESSOR) 25 MG tablet Take 1 (one) tablet (25 mg total) by mouth 2 (two) times a day . 60 tablet 02/18/20 25 025 Active metoprolol tartrate (LOPRESSOR) 25 MG tablet Take 2 (two) tablets (50 mg total) by mouth 2 (two) times a day . 03/03/20 17 025 Discontinued oxyCODONE-jaswant taminophen (PERCOCET) 5-325 mg per tablet Take 1 (one) tablet to 2 (two) tablets by mouth nightly as needed for pain . 06/03/20 24 025 Discontinued(S top Taking at Discharge) senna (SENOKOT) 8.6 mg tablet Take 1 (one) tablet (8.6 mg total) by mouth 2 (two) times a day as needed for constipation . 01/09/20 25 025 oxyCODONE-jaswant taminophen (PERCOCET) 5-325 mg per tabletIndicat ions:Kidney stones Take 1 (one) tablet by mouth every 6 (six) hours as needed (Days supply per fill: 3) . 12 tablet 4:11 PM EDT 02/18/20 25 025 Active Problems Problem Noted Date Diagnosed Date Kidney stones 02/13/2025 Pyelonephritis 01/06/2025 Acute pyelonephritis 06/12/2024 UTI (urinary tract infection) 04/03/2024 Flank pain 02/24/2024 Hypotension 12/04/2021 Condyloma acuminatum due to human papillomavirus (HPV) 08/26/2021 Hematuria 02/01/2021 Chest pain 01/27/2021 Generalized abdominal pain 08/22/2020 Encounters Date Type Department Care Team Description 02/13/2025 10:02 AM EDT - 02/17/2025 6:01 PM EDT Hospital Encounter [facility] [address] [place] [address] Isidoro Freire MD [facility], Generic Silvia Gonzalez MD Temu, Winnie Ernest, MD Discharge Disposition: Home 02/13/2025 Results Follow-Up [facility] Inpatient Pharmacy [address] [place] [address] [facility] Avery [facility],PharmD Urine Aerobic Culture 02/13/2025 Travel 02/11/2025 8:50 PM EDT - 02/12/2025 12:14 AM EDT Emergency [facility] Emergency Department [address] [place] [address] Isis Mejía MD Discharge Disposition: Home 02/11/2025 Travel 01/06/2025 9:14 AM EDT - 01/08/2025 2:28 PM EDT Hospital Encounter [facility] [address] [place] [id number] Tunde Peñaloza DO Physicians, [facility] Trinh Aragon DO Chaluvadi, [place], MD Discharge Disposition: Home 01/06/2025 Travel from Last 3 Months Family History Medical History Relation Comments Heart disease Father Relation Status Comments Father Other Social History Tobacco Use Types Packs/Day Years Used Date Smoking Tobacco: Never Smokeless Tobacco: Never Tobacco Cessation:Counseling Given: Not Answered Alcohol Use Standard Drinks/Week Comments Never 0 (1 standard drink = 0.6 oz pur e alcohol) [facility] Utilities Answer Date Recorded In the past 12 months has [employer], gas, oil, or water Pulse threatened to shut off services in your home? No 02/13/2025 Humiliation, Afraid, Rape, and Kick questionnair e Answer Date Recorded Within the last year, have y ou been afraid of your partner or ex-partner? No 02/13/2025 Within the last year, have y ou been humiliated or emotionally abused in other ways by your partner or ex-partner? No Within the last year, have y ou been kicked, hit, slapped, or otherwise physically hurt by your partner or ex-partner? No 02/13/2025 Within the last year, have y ou been raped or forced to have any kind of sexual activity by your partner or ex-partner? No 02/13/2025 AUDIT-C Answer Date Recorded Q1: How often do you have a drink containing alc ohol? Never 10/18/2020 Average Number of Drinks Not on file 021 Frequency of Binge Drinking Not on file 09/28 PHQ-2 Answer Date Recorded PHQ-2 Total Score 0 04/04/2024 Hunger Vital Sign Answer Date Recorded Within the past 12 months, y ou worried that your food would run out before you got the money to buy more. Never true 02/14/20 25 Within the past 12 months, t he food you bought just didn't last and you didn't have money to get more. Never true 02/13/2025 PRAPARE - Transportation Answer Date Re corded In the past 12 months, has l ack of transportation kept you from medical appointments or from getting medications? No 01/27 In the past 12 months, has l ack of transportation kept you from meetings, work, or from getting things needed for daily living? No 02/13/2025 Housing Stability Vital Sign Answer Gerald e Recorded In the last 12 months, was t here a time when you were not able to pay the mortgage or rent on time? No 02/13/2025 In the past 12 months, how m any times have you moved where you were living? 0 02/13/2025 At any time in the past 12 m [facility], were you homeless or living in a intermediate (including now)? No 02/13/2025 Comments No Sex and Gender Information Value Date Recorded Sex Assigned at Not on file Legal Sex Female 8:07 AM EDT Gender Identity Female 07/08/2020 9:32 PM EST Sexual Orientation Straight 07/08/2020 9: 32 PM EST Last Filed Vital Signs Vital Sign Reading Time Taken Comments Blood Pressure 133/79 02/17/2025 12:53 PM EDT Pulse 97 02/17/2025 12:53 PM EDT Temperature 36.8 C (98.3 F) 02/17/2025 11:13 AM EDT Respiratory Rate 18 02/17/2025 11:1 3 AM EDT Oxygen Saturation 93% 02/17/2025 8:29 AM EDT Inhaled Oxygen Concentration - - Weight 123.8 kg (272 lb 14.9 oz) 02/13/2025 4:00 PM EDT Height 170.2 cm (5' 7 ) 02/13/2025 4:00 PM EDT Body Mass Index 42.75 02/13/2025 4:00 PM EDT Plan of Treatment Health Maintenance Due Date Last Done Comments CT Colonography 1975 Fecal DNA 1975 Flexible sigmoidoscopy 1975 Diabetic Eye Exam 1985 Diabetic Foot Exam 1985 Urine (micro)albumin/creatin ine ratio - Diabetes 1985 HIV Screening 1990 Hepatitis C Screening 1993 Mammogram 2015 Colonoscopy 07/21/2021 07/21/2011 Colorectal Cancer Screening/Monitoring 04/15/2022 Fecal occult blood test (FOBT,FIT) 04/15/2022 04/15/2021 Wellness Visit 08/26/2022 08/26/2021 COVID-19 Vaccine (1 - 2023-2 5 season) 2025 Influenza Vaccine (#1) 2025 04/28/2024, 2017 Depression Screening/Follow- Up (PHQ-2/9) 04/04/2025 04/04/2024 A1C 04/08/2025 01/06/2025, 08/01/2024, 07/28/2022, Additional history exists eGFR Diabetes 02/17/2026 02/17/2025, 02/16/2025, 02/15/2025, Additional history exists Tetanus: Every 10yrs 12/01/2032 12/01/2022 Cervical Cancer Screening Discontinued HPV/Cotest Discontinued 08/26/2021, 08/22/2020 Pap Smear Discontinued 08/26/2021, 08/22/2020 Pneumococcal Vaccine: Ped or At-Risk Completed 12/01/2022 Medical Devices Implanted Type Area Prefitter Device Identifier Shelf Expiration Date Model / Serial / Lot Stent 6 X 28 Contour W/O Wire - Sn/A Implanted:Qty: 1 on 01/30/2021 by Aleks Barbosa MD at [facility] Stent Right: Ureter [employer] U [id number] 11/07/2023 180-224 / N/A / [id number] Explanted Type Area Prefitter Device Identifier Shelf Expiration Date Model / Serial / Lot Stent 6fr X 26cm Ureter W/O Wire - Sn/A Explanted:Qty: 1 on 01/30/2021 at [facility] Stent [employer] U 11/13/2023 180-223 / N/A / [id number] Procedures Procedure Name Priority Date/Time Associated Diagnosis Comments POC GLUCOSE - RALS Routine 02/17/2025 4: 24 PM EDT POC GLUCOSE - RALS Routine 02/17/2025 12 :57 PM EDT POC GLUCOSE - RALS Routine 02/17/2025 11 :08 AM EDT POC GLUCOSE - RALS Routine 02/17/2025 7: 28 AM EDT CBC WITH AUTO DIFFERENTIAL Routine 02/17/2025 7:10 AM EDT CBC AND DIFFERENTIAL Routine 02/17/2025 7:10 AM EDT BASIC METABOLIC PANEL Routine 02/17/2025 7:10 AM EDT POC GLUCOSE - RALS Routine 02/16/2025 7: 56 PM EDT POC GLUCOSE - RALS Routine 02/16/2025 4: [address] ABDOMEN PELVIS WITH IV CONTRAST ONLY Routine 02/16/2025 2:44 PM EDT POC GLUCOSE - RALS Routine 02/16/2025 11 :24 AM EDT POC GLUCOSE - RALS Routine 02/16/2025 7: 49 AM EDT CBC WITH AUTO DIFFERENTIAL Routine 02/16/2025 6:48 AM EDT CBC AND DIFFERENTIAL Routine 02/16/2025 6:48 AM EDT BASIC METABOLIC PANEL Routine 02/16/2025 6:48 AM EDT POC GLUCOSE - RALS Routine 02/15/2025 7: 32 PM EDT POC GLUCOSE - RALS Routine 02/15/2025 4: 24 PM EDT POC GLUCOSE - RALS Routine 02/15/2025 11 :05 AM EDT NONGYN CYTOLOGY Routine 02/15/2025 9:36 AM EDT POC GLUCOSE - RALS Routine 02/15/2025 7: 08 AM EDT CBC WITH AUTO DIFFERENTIAL Routine 02/15/2025 5:55 AM EDT CBC AND DIFFERENTIAL Routine 02/15/2025 5:55 AM EDT BASIC METABOLIC PANEL Routine 02/15/2025 5:55 AM EDT POC GLUCOSE - RALS Routine 02/14/2025 7: 41 PM EDT POC GLUCOSE - RALS Routine 02/14/2025 4: 15 PM EDT POC GLUCOSE - RALS Routine 02/14/2025 11 :[address] UROGRAM Routine 02/14/2025 10:46 AM EDT POC GLUCOSE - RALS Routine 02/14/2025 9: 10 AM EDT POC GLUCOSE - RALS Routine 02/14/2025 7: 11 AM EDT CBC WITH AUTO DIFFERENTIAL Routine 02/14/2025 6:36 AM EDT CBC AND DIFFERENTIAL Routine 02/14/2025 6:36 AM EDT BASIC METABOLIC PANEL Routine 02/14/2025 6:36 AM EDT POC GLUCOSE - RALS Routine 02/14/2025 4: 49 AM EDT POC GLUCOSE - RALS Routine 02/13/2025 8: 44 PM EDT POC GLUCOSE - RALS Routine 02/13/2025 7: 31 PM EDT POC GLUCOSE - RALS Routine 02/13/2025 4: 13 PM EDT POC GLUCOSE Routine 02/13/2025 4:06 PM EDT POC GLUCOSE - RALS Routine 02/13/2025 4: 05 PM EDT REFLEX LACTIC ACID, PLASMA Timed 02/13/2025 3:27 PM EDT POC GLUCOSE ENOCH 02/13/2025 2:39 PM EDT POC GLUCOSE - RALS Routine 02/13/2025 2: 38 PM EDT POC GLUCOSE - RALS Routine 02/13/2025 1: 24 PM EDT POC GLUCOSE ENOCH 02/13/2025 1:24 PM EDT CBC WITH AUTO DIFFERENTIAL STAT 02/13/2025 11:02 AM EDT BETA-HYDROXYBUTYRATE Add-On 02/13/2025 11:02 AM EDT LIPASE STAT 02/13/2025 11:02 AM EDT URINALYSIS STAT 02/13/2025 11:02 AM EDT COMPREHENSIVE METABOLIC PANEL ENOCH 02/13/2025 11:02 AM EDT CBC AND DIFFERENTIAL STAT 02/13/2025 11:02 AM EDT LACTIC ACID, PLASMA STAT 02/13/2025 1 1:02 AM EDT BLOOD CULTURE AEROBIC/ANAEROBIC ENOCH 02/13/2025 11:02 AM EDT BLOOD CULTURE AEROBIC/ANAEROBIC ENOCH 02/13/2025 11:[address] KIDNEY STONE ENOCH 02/13/2025 10:40 AM EDT URINE AEROBIC CULTURE ENOCH 02/13/2025 1:00 AM EDT CBC WITH AUTO DIFFERENTIAL STAT 02/11/2025 10:13 PM EDT LIPASE STAT 02/11/2025 10:13 PM EDT LACTIC ACID, PLASMA STAT 02/11/2025 1 0:13 PM EDT COMPREHENSIVE METABOLIC PANEL ENOCH 02/11/2025 10:13 PM EDT CBC AND DIFFERENTIAL STAT 02/11/2025 10:13 PM EDT URINE AEROBIC CULTURE ENOCH 02/11/2025 9:46 PM EDT URINALYSIS STAT 02/11/2025 9:[address] KIDNEY STONE STAT 02/11/2025 9:17 PM EDT POC GLUCOSE - RALS Routine 01/08/2025 12 :07 PM EDT POC GLUCOSE - RALS Routine 01/08/2025 8: 26 AM EDT BASIC METABOLIC PANEL Routine 01/08/2025 5:14 AM EDT CBC Routine 01/08/2025 5:14 AM EDT POC GLUCOSE - RALS Routine 01/07/2025 9: 11 PM EDT POC GLUCOSE - RALS Routine 01/07/2025 6: 41 PM EDT POC GLUCOSE - RALS Routine 01/07/2025 1: 01 PM EDT POC GLUCOSE - RALS Routine 01/07/2025 10 :14 AM EDT CBC WITH AUTO DIFFERENTIAL Routine 01/07/2025 5:22 AM EDT LIPASE Add-On 01/07/2025 5:22 AM EDT HEPATIC FUNCTION PANEL Add-On 01/07/2025 5:22 AM EDT CBC AND DIFFERENTIAL Routine 01/07/2025 5:22 AM EDT BASIC METABOLIC PANEL Routine 01/07/2025 5:22 AM EDT POC GLUCOSE - RALS Routine 01/06/2025 9: [address] KIDNEY STONE ENOCH 01/06/2025 10:33 AM EDT URINALYSIS STAT 01/06/2025 9:49 AM EDT TIAN TOP STAT 01/06/2025 9:39 AM EDT CBC WITH AUTO DIFFERENTIAL STAT 01/06/2025 9:38 AM EDT HEMOGLOBIN A1C Add-On 01/06/2025 9:38 AM EDT PINK TOP STAT 01/06/2025 9:38 AM EDT LIGHT BLUE TOP STAT 01/06/2025 9:38 AM EDT LIGHT GREEN TOP STAT 01/06/2025 9:38 AM EDT RAINBOW DRAW STAT 01/06/2025 9:38 AM EDT CBC AND DIFFERENTIAL STAT 01/06/2025 9:38 AM EDT HCG, SERUM, QUALITATIVE STAT 01/06/2025 9:38 AM EDT CHEM 7 ENOCH 01/06/2025 9:38 AM EDT THINPREP PAP SMEAR Routine 08/26/2021 3: 41 PM EST Pap smear of vagina following gynecologic surgery Encounter for gynecological examination without abnormal finding REFLEX ONLY -- HIGH RISK HPV WITH GENOTYPE 16,18 Routine 08/26/2021 3:41 PM EST Pap smear of vagina following gynecologic surgery Encounter for gynecological examination without abnormal finding from Last 3 Months or Most Recently Relevant to Health Maintenance Results * (ABNORMAL) POC Glucose (02/17/2025 4:24 PM EDT) Only the most recent of31 resultswithin the time period is included. Glucose 248(H) 65 - 99 mg/dL 02/17/2025 4:24 PM EDT POCT LAB Blood BLOOD SPECIMEN / Unknown 02/17/2025 4:24 PM EDT 02/17/2025 4:24 PM EDT us Silvia Gonzalez MD POCT ORDERABLES - DEVICE Fi nal Result POCT LAB [address] [place] [address], * (ABNORMAL) CBC Auto Differential (02/17/2025 7:10 AM EDT) Only the most recent of8 resultswithin the time period is included. WBC 4.22(L) 4.50 - 11.00 K/mcL 02/17/2025 7:30 AM EDT LAB RBC 4.80 4.00 - 5.20 M/mcL 02/17/2025 7:30 AM EDT LAB Hemoglobin 13.4 12.0 - 16.0 g/dL 02/17/2025 7:30 AM EDT LAB Hematocrit 41.4 36.0 - 46.0 % 02/17/2025 7:30 AM EDT LAB MCV 86.3 80.0 - 100.0 fL 02/17/2025 7:30 AM EDT LAB MCH 27.9 26.0 - 34.0 pg 02/17/2025 7:30 AM EDT LAB MCHC 32.4 31.0 - 37.0 g/dL 02/17/2025 7:30 AM EDT LAB Platelets 154 150 - 400 K/mcL 02/17/2025 7:30 AM EDT LAB RDW - CV 13.7 11.6 - 14.8 % 02/17/2025 7:30 AM EDT LAB MPV 9.2(L) 9.4 - 12.4 fL 02/17/2025 7:30 AM EDT LAB Neutrophils 48.4 % 02/17/2025 7:30 AM EDT LAB Lymphocytes 34.8 % 02/17/2025 7:30 AM EDT LAB Monocytes 10.2 % 02/17/2025 7:30 AM EDT LAB Eosinophils 5.2 % 02/17/2025 7:30 AM EDT LAB Basophils 0.9 % 02/17/2025 7:30 AM EDT LAB IG Percent 0.50 % 02/17/2025 7:30 AM EDT LAB Comment:The IG parameter is the percentage of metamyelocytes, myelocytes and promyelocytes. An immature granulocyte count (IG) of 1% or more suggests the possibility of infection, an IG count of 3% is very likely related to an infection. Neutrophils Abs 2.04 1.70 - 7.00 K/mcL 02/17/2025 7:30 AM EDT LAB Lymphocytes Abs 1.47 0.90 - 4.00 K/mcL 02/17/2025 7:30 AM EDT LAB Monocytes Abs 0.43 0.30 - 0.90 K/mcL 02/17/2025 7:30 AM EDT LAB Eosinophils Abs 0.22 0.00 - 0.50 K/mcL 02/17/2025 7:30 AM EDT LAB Basophils Abs 0.04 0.00 - 0.30 K/mcL 02/17/2025 7:30 AM EDT LAB IG Absolute 0.02 0.00 - 0.30 K/mcL 02/17/2025 7:30 AM EDT LAB Nucleated RBC 0.0 % 02/17/2025 7:30 AM EDT LAB Nucleated RBC Abs 0.00 0.00 - 0.00 K/mcL 02/17/2025 7:30 AM EDT LAB Blood BLOOD SPECIMEN / Unknown Venipuncture / Unknown 02/17/2025 7:10 AM EDT 02/17/2025 7:27 AM EDT us Selin Banda MD LAB BLOOD ORDERABLES Final Result LAB [address] [place] [address] * (ABNORMAL) Basic Metabolic Panel (02/17/2025 7:10 AM EDT) Only the most recent of6 resultswithin the time period is included. Sodium 138 135 - 145 mmol/L 02/17/2025 8:47 AM EDT LAB Potassium 4.4 3.5 - 5.1 mmol/L 02/17/2025 8:47 AM EDT LAB Comment:Slightly Hemolyzed Chloride 102 98 - 108 mmol/L 02/17/2025 8:47 AM EDT LAB Bicarbonate 26 21 - 32 mmol/L 02/17/2025 8:47 AM EDT LAB Anion Gap 14 10 - 20 mmol/L 02/17/2025 8:47 AM EDT LAB Glucose 226(H) 65 - 99 mg/dL 02/17/2025 8:47 AM EDT LAB BUN 14 8 - 25 mg/dL 02/17/2025 8:47 AM EDT LAB Creatinine 0.61 0.40 - 1.10 mg/dL 02/17/2025 8:47 AM EDT LAB eGFR 110 >=60 mL/min/1.7 3 m2 02/17/2025 8:47 AM EDT LAB Comment:Estimated GFR was ca lculated using the 2020 CKD-EPI creatinine equation. BUN/Creatinine Ratio 23.0(H) 10.0 - 20.0 02/17/2025 8:47 AM EDT LAB Calcium 9.1 8.4 - 10.2 mg/dL 02/17/2025 8:47 AM EDT LAB Blood BLOOD SPECIMEN / Unknown Venipuncture / Unknown 02/17/2025 7:10 AM EDT 02/17/2025 7:26 AM EDT Narrative LAB - 02/17/2025 8:47 AM EDT [facility] Services has implemented the eGFR calculation approach that does not have a coefficient for race that conforms to the NKF-ASN Task Force Recommendations. us Selin Banda MD LAB BLOOD ORDERABLES Final Result Performing Organization Address City/State/[facility] Co de Phone Number LAB [address] [place] [address] * CT Abdomen Pelvis With IV Contrast Only (02/16/2025 2:44 PM EDT) Anatomical Region Laterality Modality Abdomen, Pelvis Computed Tomogra phy 02/17/2025 6:07 AM EDT Impressions 02/17/2025 6:51 AM EDT No specific finding to account for patient's symptoms. Right nonobstructing nephrolithiasis. [facility]/ Workstation ID: [id number] Narrative 02/17/2025 6:51 AM EDT EXAMINATION: CT ABDOMEN PELVIS WITH IV CONTRAST ONLY HISTORY: ORDERING SYSTEM PROVIDED HISTORY: Right-sided abdominal pain of unclear etiology., TECHNOLOGIST PROVIDED HISTORY: Illness/Other Reason for exam: right sided abd pain Encounter Type: Initial Additional signs and symptoms: n/a ORDERING SYSTEM PROVIDED DIAGNOSIS CODES: R65.10 SIRS (systemic inflammatory response syndrome) (HCC) N39.0 Acute UTI E11.00 Uncontrolled type 2 DM with hyperosmolar nonketotic hyperglycemia (HCC) COMPARISON: CT urogram dated 02/24/2025 TECHNIQUE: CT examination of the abdomen and pelvis following the administration of intravenous contrast. Coronal and sagittal reformations were performed. Dose reduction techniques were achieved by using automated exposure control and/or adjustment of mA and/or kV according to patient size and/or use of iterative reconstruction technique. CONTRAST: IOPAMIDOL 370 MG IODINE/ML (76 %) INTRAVENOUS SOLUTION - 75 mL, FINDINGS: Lower thorax: Mild bibasilar atelectasis. Heart size is normal. GI: The liver, spleen, and pancreas are within normal limits. The gallbladder is surgically absent.The bowel is nonobstructed. No focal bowel wall thickening. Moderate colonic stool burden. The appendix is not confidently visualized. : The adrenal glands are normal. 2 mm stone within the midpole of the right kidney. No hydronephrosis or ureteral dilation. The bladder is moderately well distended. No wall thickening. The uterus is absent. No adnexal masses. Lymphovascular: Aorta is normal in caliber. No intraabdominal or lower pelvic lymphadenopathy. Miscellaneous: No pneumoperitoneum or pelvic free fluid. Musculoskeletal: No acute or aggressive osseous lesions. Procedure Note [place] Kaveh Davin, DO - 02/17/2025 EXAMINATION: CT ABDOMEN PELVIS WITH IV CONTRAST ONLY HISTORY: ORDERING SYSTEM PROVIDED HISTORY: Right-sided abdominal pain of unclearetiology., TECHNOLOGIST PROVIDED HISTORY: Illness/Other Reason for exam: right sided abd pain Encounter Type: Initial Additional signs and symptoms: n/a ORDERING SYSTEM PROVIDED DIAGNOSIS CODES: R65.10 SIRS (systemic inflammatory response syndrome) (HCC) N39.0 Acute UTI E11.00 Uncontrolled type 2 DM with hyperosmolar nonketotic hyperglycemia(HCC) COMPARISON: CT urogram dated 02/24/2025 TECHNIQUE: CT examination of the abdomen and pelvis following the administration ofintravenous contrast. Coronal and sagittal reformations were performed. Dose reduction techniques were achieved by using automated exposurecontrol and/or adjustment of mA and/or kV according to patient size and/oruse of iterative reconstruction technique. CONTRAST: IOPAMIDOL 370 MG IODINE/ML (76 %) INTRAVENOUS SOLUTION - 75 mL, FINDINGS: Lower thorax: Mild bibasilar atelectasis. Heart size is normal. GI: The liver, spleen, and pancreas are within normal limits. Thegallbladder is surgically absent.The bowel is nonobstructed. No focalbowel wall thickening. Moderate colonic stool burden. The appendix is notconfidently visualized. : The adrenal glands are normal. 2 mm stone within the midpole of theright kidney. No hydronephrosis or ureteral dilation. The bladder ismoderately well distended. No wall thickening. The uterus is absent. Noadnexal masses. Lymphovascular: Aorta is normal in caliber. No intraabdominal or lowerpelvic lymphadenopathy. Miscellaneous: No pneumoperitoneum or pelvic free fluid. Musculoskeletal: No acute or aggressive osseous lesions. IMPRESSION: No specific finding to account for patient's symptoms. Right nonobstructing nephrolithiasis. [employer] Workstation ID: [id number] us Silvia Gonzalez MD IMG CT ORDERABLES Final Res ult * [facility] (02/15/2025 9:36 AM EDT) Case Report Medical Cytology Report Case: [id number] Authorizing Provider: Silvia Gonzalez MD Collected: 02/15/2025 09:36 AM Ordering Location: [facility] Received: 02/15/2025 01:39 PM Pathologist: German Ayala IV, MD Specimen: Urine, Clean Catch 02/16/2025 8:10 AM EDT LAB Interpretation Specimen A Negative for high-grade urothelial carcinoma 02/16/2025 8:10 AM EDT LAB at 0810 EDT Comment: Reference: Mando GA, Srinath EM, Sara R, et al: The [employer] System for Reporting Urinary Cytology: The Quest to Develop a Standardized Terminology. Acta Cytologica 2016;60:185-197. Clinical Information hematuria 02/16/2025 8:10 AM EDT LAB Gross Description A. Received fresh, designated Clean catch-Urine , are 64 mL of clear osmin yellow fluid. 1 ThinPrep slide(s) Pap stained prepared. [employer] Cytology preparations processed at: [facility] - [address] [place] [address] 02/16/2025 8:10 AM EDT LAB Urine URINE SPECIMEN OBTAINED BY CLEAN CATCH PROCEDURE / Unknown 02/15/2025 9:36 AM EDT 02/15/2025 1:39 PM EDT us Silvia Gonzalez MD PATHOLOGY/CYTOLOGY ORDERABL ES Final Result LAB [address] [place], [place] [id number] * CT Urogram (02/14/2025 10:46 AM EDT) Anatomical Region Laterality Modality Abdomen, Pelvis Computed Tomogra phy 02/14/2025 2:46 PM EDT Impressions 02/14/2025 3:48 PM EDT 1. Punctate bilateral nephrolithiasis. No ureteral/bladder stone or hydronephrosis. 2. No suspicious KUB masses. 3. No acute process is identified in the abdomen or pelvis. 4. Moderate constipation. 5. Cholecystectomy and hysterectomy. [employer] Workstation ID: [id number] Narrative 02/14/2025 3:48 PM EDT EXAMINATION: CT UROGRAM HISTORY: ORDERING SYSTEM PROVIDED HISTORY: hematuria, TECHNOLOGIST PROVIDED HISTORY: Illness/Other Reason for exam: Hematuria Encounter Type: Initial Additional signs and symptoms: Right sided flank pain ORDERING SYSTEM PROVIDED DIAGNOSIS CODES: R65.10 SIRS (systemic inflammatory response syndrome) ([facility]) N39.0 Acute UTI E11.00 Uncontrolled type 2 DM with hyperosmolar nonketotic hyperglycemia ([facility]) COMPARISON: CT stone study February 13, 2025. TECHNIQUE: Dose reduction techniques were achieved by using automated exposure control and/or adjustment of mA and/or kV according to patient size and/or use of iterative reconstruction technique. Coronal and sagittal MIP (maximum intensity projection) images were performed. Unenhanced CT images of the abdomen and pelvis. Contrast-enhanced CT images of the abdomen pelvis acquired per CT urogram protocol with sagittal and coronal reformations. CONTRAST: IOPAMIDOL 370 MG IODINE/ML (76 %) INTRAVENOUS SOLUTION - 120 mL, FINDINGS: CT urogram: There are symmetric renal sizes with similar are cortical lobulations or small cortical scars bilaterally. Both kidneys show no hydronephrosis. Single 3 mm stone in the upper pole of the right kidney and a single punctate stone in the lower pole of the left kidney. Symmetric enhancement of the kidneys with a few tiny low-density cortical lesions are too small to characterize but suggestive of small cysts. No suspicious cortical masses. No abnormal filling defects in the renal collecting systems. The ureters are nondilated and there are no ureteral stones or focal masses identified. Nondistended urinary bladder shows no intraluminal stones or appreciable wall thickening. No filling defects/discrete urothelial masses are identified. Lung bases: Strand-like opacities in both lower lungs consistent with atelectasis/scarring. No pleural effusion. Liver: No focal masses. Gallbladder: Surgically absent. Adrenal glands: Within normal limits. Spleen/pancreas: No acute abnormality or focal masses. Lymph nodes: No pathologic enlargement of the mesenteric or retroperitoneal lymph nodes. GI: Bowel loops show no signs of obstruction or acute inflammation. Large amount of stool in the cecum/ascending colon. Scattered [id number] stool in the remainder of the colon. Peritoneal cavity: No ascites. Reproductive: Hysterectomy. Vasculature: Minor atherosclerotic plaquing of the abdominal aorta. Osseous structures: No acute abnormality or aggressive bone lesions. Procedure Note Ludin Chiang, DO - 02/14/2025 EXAMINATION: CT UROGRAM HISTORY: ORDERING SYSTEM PROVIDED HISTORY: hematuria, TECHNOLOGIST PROVIDED HISTORY: Illness/Other Reason for exam: Hematuria Encounter Type: Initial Additional signs and symptoms: Right sided flank pain ORDERING SYSTEM PROVIDED DIAGNOSIS CODES: R65.10 SIRS (systemic inflammatory response syndrome) ([facility]) N39.0 Acute UTI E11.00 Uncontrolled type 2 DM with hyperosmolar nonketotic hyperglycemia([facility]) COMPARISON: CT stone study February 13, 2025. TECHNIQUE: Dose reduction techniques were achieved by using automated exposurecontrol and/or adjustment of mA and/or kV according to patient size and/oruse of iterative reconstruction technique. Coronal and sagittal MIP (maximum intensity projection) images wereperformed. Unenhanced CT images of the abdomen and pelvis. Contrast-enhanced CTimages of the abdomen pelvis acquired per CT urogram protocol withsagittal and coronal reformations. CONTRAST: IOPAMIDOL 370 MG IODINE/ML (76 %) INTRAVENOUS SOLUTION - 120 mL, FINDINGS: CT urogram: There are symmetric renal sizes with similar are corticallobulations or small cortical scars bilaterally. Both kidneys show nohydronephrosis. Single 3 mm stone in the upper pole of the right kidney and a singlepunctate stone in the lower pole of the left kidney. Symmetric enhancement of the kidneys with a few tiny low-density corticallesions are too small to characterize but suggestive of small cysts. Nosuspicious cortical masses. No abnormal filling defects in the renalcollecting systems. The ureters are nondilated and there are no ureteral stones or focalmasses identified. Nondistended urinary bladder shows no intraluminal stones or appreciablewall thickening. No filling defects/discrete urothelial masses areidentified. Lung bases: Strand-like opacities in both lower lungs consistent withatelectasis/scarring. No pleural effusion. Liver: No focal masses. Gallbladder: Surgically absent. Adrenal glands: Within normal limits. Spleen/pancreas: No acute abnormality or focal masses. Lymph nodes: No pathologic enlargement of the mesenteric orretroperitoneal lymph nodes. GI: Bowel loops show no signs of obstruction or acute inflammation. Largeamount of stool in the cecum/ascending colon. Scattered [id number] in the remainder of the colon. Peritoneal cavity: No ascites. Reproductive: Hysterectomy. Vasculature: Minor atherosclerotic plaquing of the abdominal aorta. Osseous structures: No acute abnormality or aggressive bone lesions. IMPRESSION: 1. Punctate bilateral nephrolithiasis. No ureteral/bladder stone orhydronephrosis. 2. No suspicious KUB masses. 3. No acute process is identified in the abdomen or pelvis. 4. Moderate constipation. 5. Cholecystectomy and hysterectomy. [employer] Workstation ID: [id number] Lucrecia Stevens CNP IM CT ORDERABLES Fi nal Result * (ABNORMAL) POC Glucose - when patient is eating OR made NPO for fewer than 24 hours (02/13/2025 4:06 PM EDT) Only the most recent of3 resultswithin the time period is included. Glucose 308(A) 65 - 99 mg/dL Blood 02/13/2025 4:06 PM EDT us Selin Banda MD POINT OF CARE TEST ORDERAB LES Final Result * Reflex Lactic Acid, Plasma (02/13/2025 3:27 PM EDT) Lactic Acid 1.8 0.6 - 2.0 mmol/L 02/13/2025 4:01 PM EDT LAB Blood BLOOD SPECIMEN / Unknown Venipuncture / Unknown 02/13/2025 3:27 PM EDT 02/13/2025 3:33 PM EDT Connie Ibanez [employer] LAB BLOOD ORDERABLES Shira l Result Performing Organization Address City/[facility] Co de Phone Number LAB [address] [place] [address] * Beta-Hydroxybutyrate (02/13/2025 11:02 AM EDT) Pathologist [facility] Beta-Hydroxybut yrate 0.1 0.0 - 0.3 mmol/L 02/13/2025 4:02 PM EDT LAB Blood BLOOD SPECIMEN / Unknown Venipuncture / Unknown 02/13/2025 11:02 AM EDT 02/13/2025 11:09 AM EDT Selin Banda MD LAB BLOOD ORDERABLES Final Result Performing Organization Address [facility] de Phone Number LAB [address] [place] [address] * Blood Culture Aerobic/Anaerobic (02/13/2025 11:02 AM EDT) Only the most recent of2 resultswithin the time period is included. Pathologist [facility] Culture No Growth after 5 days 02/18/2025 4:00 PM EDT [facility] Blood PERIPHERAL BLOOD SPECIMEN / Unknown Venipuncture / Unknown 02/13/2025 11:02 AM EDT 02/13/2025 11:12 AM EDT Connie Ibanez [employer] MICROBIOLOGY - GENERAL OR DERABLES Final Result Performing Organization Address City/[facility]/ZIP Co de Phone Number [facility] [address] [place] [address] * (ABNORMAL) Urinalysis (02/13/2025 11:02 AM EDT) Only the most recent of3 resultswithin the time period is included. Color, Urine Light Red(A) Colorless, Yellow 02/13/2025 11:20 AM T LAB Clarity, Urine Hazy(A) Clear 02/13/2025 11:20 AM [facility] Specific Galt 1.032(H) 1.005 - 1.025 02/13/2025 11:20 AM [facility] pH, Urine 7.0 5.0 - 7.0 02/13/2025 11:20 AM [facility] Protein, Urine Negative Negative mg/dL 02/13/2025 11:20 AM [facility] Glucose, Urine >=500(A) Negative mg/dL 02/13/2025 11:20 AM [facility] Ketones, Urine Negative Negative mg/dL 02/13/2025 11:20 AM [facility] Bilirubin, Urine Negative Negative 02/13/2025 11:20 AM [facility] Urobilinogen, Urine <2.0 <2.0 mg/dL 02/13/2025 11:20 AM [facility] Blood, Urine Large(A) Negative 02/13/2025 11:20 AM [facility] Nitrite, Urine Negative Negative 02/13/2025 11:20 AM [facility] Leukocyte Esterase, Urine Moderate(A) Negative 02/13/2025 11:20 AM [facility] WBCs, Urine 33(H) 0 - 5 /hpf 02/13/2025 11:20 AM [facility] RBCs, Urine >180(H) 0 - 3 /hpf 02/13/2025 11:20 AM [facility] Bacteria, Urine Rare(A) None Seen /hpf 02/13/2025 11:20 AM [facility] Squamous Epithelial 6(H) 0 - 4 /hpf 02/13/2025 11:20 AM [facility] Mucus, Urine Rare None Seen, Rare /lpf 02/13/2025 11:20 AM [facility] Urine URINE SPECIMEN / Unknown Collection / Unknown 02/13/2025 11:02 AM EDT 02/13/2025 11:10 AM EDT Narrative LAB - 02/13/2025 11:20 AM EDT Microscopic examination is performed on all urinalysis samples and only positive findings are reported. The test for blood on the chemical analytic portion of urinalysis may also be positive due to hemoglobinuria and myoglobinuria and if red blood cells are present they are quantified by microscopic examination. [facility] [address] URINE ORDERABLES Final Re sult Performing Organization Address [facility] de Phone Number LAB [address] [place] [address] * Lipase (02/13/2025 11:02 AM EDT) Only the most recent of3 resultswithin the time period is included. Lipase 37 15 - 65 U/L 02/13/2025 11:48 AM EDT LAB Comment:Slightly Hemolyzed Blood BLOOD SPECIMEN / Unknown Venipuncture / Unknown 02/13/2025 11:02 AM EDT 02/13/2025 11:09 AM EDT [facility] [address] LAB BLOOD ORDERABLES Shira l Result Performing Organization Address [facility] de Phone Number LAB [address] [place] [address] * (ABNORMAL) Lactic Acid (02/13/2025 11:02 AM EDT) Only the most recent of2 resultswithin the time period is included. Lactic Acid 2.3(H) 0.6 - 2.0 mmol/L 02/13/2025 11:41 AM EDT LAB Blood BLOOD SPECIMEN / Unknown Venipuncture / Unknown 02/13/2025 11:02 AM EDT 02/13/2025 11:09 AM EDT [facility] [address] LAB BLOOD ORDERABLES Shira l Result Performing Organization Address [facility] de Phone Number LAB [address] [place] [address] * (ABNORMAL) CMP (02/13/2025 11:02 AM EDT) Only the most recent of2 resultswithin the time period is included. Sodium 133(L) 135 - 145 mmol/L 02/13/2025 11:47 AM [facility] Potassium 4.8 3.5 - 5.1 mmol/L 02/13/2025 11:47 AM [facility] Chloride 95(L) 98 - 108 mmol/L 02/13/2025 11:47 AM [facility] Bicarbonate 25 21 - 32 mmol/L 02/13/2025 11:47 AM [facility] Anion Gap 18 10 - 20 mmol/L 02/13/2025 11:47 AM [facility] Glucose 515(HH) 65 - 99 mg/dL 02/13/2025 11:47 AM [facility] BUN 9 8 - 25 mg/dL 02/13/2025 11:47 AM [facility] Creatinine 0.79 0.40 - 1.10 mg/dL 02/13/2025 11:47 AM [facility] eGFR 92 >=60 mL/min/1.7 3 m2 02/13/2025 11:47 AM [facility] Comment:Estimated GFR was ca lculated using the 2020 CKD-EPI creatinine equation. BUN/Creatinine Ratio 11.4 10.0 - 20.0 02/13/2025 11:47 AM [facility] Total Protein 6.9 6.0 - 8.0 g/dL 02/13/2025 11:47 AM [facility] Albumin 4.1 3.2 - 5.2 g/dL 02/13/2025 11:47 AM [facility] Calcium 9.6 8.4 - 10.2 mg/dL 02/13/2025 11:47 AM [facility] Alkaline Phosphatase 82 40 - 150 U/L 02/13/2025 11:47 AM [facility] AST 35 0-35 U/L U/L 02/13/2025 11:47 AM [facility] ALT 25 0-35 U/L U/L 02/13/2025 11:47 AM [facility] Total Bilirubin 0.4 0.0 - 1.3 mg/dL 02/13/2025 11:47 AM [facility] Blood BLOOD SPECIMEN / Unknown Venipuncture / Unknown 02/13/2025 11:02 AM EDT 02/13/2025 11:09 AM EDT Narrative LAB - 02/13/2025 11:47 AM EDT [facility] has implemented the eGFR calculation approach that does not have a coefficient for race that conforms to the NKF-ASN Task Force Recommendations. Connie Cheung Shamar [facility] LAB BLOOD ORDERABLES Shira l Result Performing Organization Address City/State/[facility] Co de Phone Number LAB [address] [facility] [place] [address] * CT Kidney Stone (02/13/2025 10:40 AM EDT) Only the most recent of3 resultswithin the time period is included. Anatomical Region Laterality Modality Abdomen, Pelvis Computed Tomogra phy 02/13/2025 11:5 0 AM EDT Impressions 02/13/2025 3:21 PM EDT 1. Bilateral subcentimeter nonobstructing renal calculi. No ureteral calculi. 2. Prior cholecystectomy. Prior hysterectomy. [employer] Workstation ID: [id number] Narrative 02/13/2025 3:21 PM EDT EXAMINATION: CT KIDNEY STONE ADDITIONAL CLINICAL INFORMATION: Abdominal/flank pain, stone suspected COMPARISON: 02/11/2025. 02/09/2025. TECHNIQUE: Unenhanced helical acquisition was obtained from the superior aspect of the kidneys through the pubic symphysis. Dose reduction techniques were achieved by using automated exposure control and/or adjustment of mA and/or kV according to patient size and/or use of iterative reconstruction technique. FINDINGS: ABDOMINAL CT: Exclusion of the superior aspect of the liver and spleen. Prior cholecystectomy. Portions of the liver and spleen included on this unenhanced study are unremarkable. Allowing for the lack of intravenous contrast, the pancreas and the adrenal glands are unremarkable. There is partial exclusion of the superior right adrenal gland. Bilateral subcentimeter nonobstructing renal calculi, the largest measuring 3 mm within the superior right kidney. lobation of the renal cortices, anatomic variant. No ureteral calculi. Mild atherosclerotic vascular calcifications. No enlarged lymph nodes within the abdomen. PELVIC CT: Normal appendix. Moderate stool burden throughout the colon. Prior hysterectomy. No ascites or focal intraperitoneal fluid collections. No enlarged lymph nodes within the pelvis. Procedure Note Vivek Chou MD - 02/13/2025 EXAMINATION: CT KIDNEY STONE ADDITIONAL CLINICAL INFORMATION: Abdominal/flank pain, stone suspected COMPARISON: 02/11/2025. 02/09/2025. TECHNIQUE: Unenhanced helical acquisition was obtained from the superior aspect ofthe kidneys through the pubic symphysis. Dose reduction techniques wereachieved by using automated exposure control and/or adjustment of mAand/or kV according to patient size and/or use of iterative reconstructiontechnique. FINDINGS: ABDOMINAL CT: Exclusion of the superior aspect of the liver and spleen.Prior cholecystectomy. Portions of the liver and spleen included on thisunenhanced study are unremarkable. Allowing for the lack of intravenouscontrast, the pancreas and the adrenal glands are unremarkable. There ispartial exclusion of the superior right adrenal gland. Bilateralsubcentimeter nonobstructing renal calculi, the largest measuring 3 mmwithin the superior right kidney. lobation of the renal cortices,anatomic variant. No ureteral calculi. Mild atherosclerotic vascularcalcifications. No enlarged lymph nodes within the abdomen. PELVIC CT: Normal appendix. Moderate stool burden throughout the colon.Prior hysterectomy. No ascites or focal intraperitoneal fluidcollections. No enlarged lymph nodes within the pelvis. IMPRESSION: 1. Bilateral subcentimeter nonobstructing renal calculi. No ureteralcalculi. 2. Prior cholecystectomy. Prior hysterectomy. [employer] Workstation ID: [id number] us Connie Ibanez CNP IMG CT ORDERABLES Final R esult * Urine Aerobic Culture (02/13/2025 1:00 AM EDT) Only the most recent of2 resultswithin the time period is included. Culture < 10,000 CFU/mL of normal urogenital microbiota 02/14/2025 11:57 AM EDT [facility] Urine URINE SPECIMEN OBTAINED BY CLEAN CATCH PROCEDURE / Unknown Collection / Unknown 02/13/2025 1:00 AM EDT 02/13/2025 12:30 PM EDT us Connie Ibanez CNP MICROBIOLOGY - GENERAL OR DERABLES Final Result [facility] [address] [place] [address] * (ABNORMAL) CBC (01/08/2025 5:14 AM EDT) WBC 5.05 4.50 - 11.00 K/mcL 01/08/2025 5:53 AM EDT [facility] RBC 4.56 4.00 - 5.20 M/mcL 01/08/2025 5:53 AM EDT [facility] Hemoglobin 12.7 12.0 - 16.0 g/dL 01/08/2025 5:53 AM EDT [facility] Hematocrit 39.2 36.0 - 46.0 % 01/08/2025 5:53 AM EDT [facility] MCV 86.0 80.0 - 100.0 fL 01/08/2025 5:53 AM EDT [facility] MCH 27.9 26.0 - 34.0 pg 01/08/2025 5:53 AM EDT [facility] MCHC 32.4 31.0 - 37.0 g/dL 01/08/2025 5:53 AM EDT [facility] Platelets 164 150 - 400 K/mcL 01/08/2025 5:53 AM EDT [facility] RDW - CV 14.0 11.6 - 14.8 % 01/08/2025 5:53 AM EDT [facility] MPV 9.3(L) 9.4 - 12.4 fL 01/08/2025 5:53 AM EDT [facility] Nucleated RBC 0.0 % 01/08/2025 5:53 AM EDT [facility] Nucleated RBC Abs 0.00 0.00 - 0.00 K/mcL 01/08/2025 5:53 AM T [facility] Blood BLOOD SPECIMEN / Unknown Venipuncture / Unknown 01/08/2025 5:14 AM EDT 01/08/2025 5:40 AM EDT Cytodynffy DO LAB BLOOD ORDERABLES Shira l Result [facility] [address] [place] [address] * Hepatic Function Panel (01/07/2025 5:22 AM EDT) Total Protein 6.6 6.0 - 8.0 g/dL 01/07/2025 8:24 AM EDT [facility] Albumin 3.6 3.2 - 5.2 g/dL 01/07/2025 8:24 AM EDT [facility] Total Bilirubin 0.3 0.0 - 1.3 mg/dL 01/07/2025 8:24 AM EDT [facility] Bilirubin, Direct <0.2 0.0 - 0.4 mg/dL 01/07/2025 8:24 AM EDT [facility] Alkaline Phosphatase 74 40 - 150 U/L 01/07/2025 8:24 AM EDT [facility] AST 24 0-35 U/L U/L 01/07/2025 8:24 AM EDT [facility] ALT 23 0-35 U/L U/L 01/07/2025 8:24 AM EDT [facility] Blood BLOOD SPECIMEN / Unknown Venipuncture / Unknown 01/07/2025 5:22 AM EDT 01/07/2025 5:58 AM EDT [facility] BLOOD ORDERABLES Shira l Result [facility] [address] [place] [address] * Tian Top (01/06/2025 9:39 AM EDT) Extra Tube Hold for add-ons. 01/06/2025 12:00 PM EDT [facility] Comment:Auto resulted. Blood BLOOD SPECIMEN / Unknown Venipuncture / Unknown 01/06/2025 9:39 AM EDT 01/06/2025 9:48 AM EDT Tunde Peñaloza DO LAB BLOOD ORDERABLES Fin al Result [facility] [address] [place] [address] * Gold Top (01/06/2025 9:38 AM EDT) Extra Tube Hold for add-ons. 01/06/2025 1:58 PM EDT [facility] Comment:Auto resulted. Blood BLOOD SPECIMEN / Unknown Venipuncture / Unknown 01/06/2025 9:38 AM EDT 01/06/2025 9:48 AM EDT Tunde Enamorado Severianotiti DO LAB BLOOD ORDERABLES Fin al Result Performing Organization Address City/[facility]/ZIP Co de Phone Number [facility] [address] [place] [phone] * [place] Top (01/06/2025 9:38 AM EDT) Blood BLOOD SPECIMEN / Unknown Venipuncture / Unknown 01/06/2025 9:38 AM EDT 01/06/2025 9:48 AM EDT Tunde Enamorado Severianotiti DO LAB BLOOD ORDERABLES Fin al Result Performing Organization Address City/[facility]/ZIP Co de Phone Number [facility] [address] [place] [address] * (ABNORMAL) Chem 7 (01/06/2025 9:38 AM EDT) Sodium 137 135 - 145 mmol/L 01/06/2025 10:31 AM EDT [facility] Potassium 4.3 3.5 - 5.1 mmol/L 01/06/2025 10:31 AM EDT [facility] Chloride 101 98 - 108 mmol/L 01/06/2025 10:31 AM EDT [facility] Bicarbonate 24 21 - 32 mmol/L 01/06/2025 10:31 AM EDT [facility] Anion Gap 16 10 - 20 mmol/L 01/06/2025 10:31 AM EDT [facility] Glucose 343(H) 65 - 99 mg/dL 01/06/2025 10:31 AM EDT [facility] BUN 10 8 - 25 mg/dL 01/06/2025 10:31 AM EDT [facility] Creatinine 0.58 0.40 - 1.10 mg/dL 01/06/2025 10:31 AM EDT [facility] eGFR 111 >=60 mL/min/1.7 3 m2 01/06/2025 10:31 AM EDT [facility] Comment:Estimated GFR was ca lculated using the 2020 CKD-EPI creatinine equation. BUN/Creatinine Ratio 17.2 10.0 - 20.0 01/06/2025 10:31 AM EDT [facility] Blood BLOOD SPECIMEN / Unknown Venipuncture / Unknown 01/06/2025 9:38 AM EDT 01/06/2025 9:48 AM EDT Narrative [facility] - 01/06/2025 10:31 AM EDT [facility] has implemented the eGFR calculation approach that does not have a coefficient for race that conforms to the NKF-ASN Task Force Recommendations. Tunde العليMONOQI LAB BLOOD ORDERABLES Fin al Result Performing Organization Address City/[facility]/ZIP Co de Phone Number [facility] [address] [place], [place] [id number] * Light Blue Top (01/06/2025 9:38 AM EDT) Extra Tube Hold for add-ons. 01/06/2025 12:00 PM EDT [facility] Comment:Auto resulted. Blood BLOOD SPECIMEN / Unknown Venipuncture / Unknown 01/06/2025 9:38 AM EDT 01/06/2025 9:48 AM EDT [employer] LAB BLOOD ORDERABLES Fin al Result [facility] [address] [place] [address] * hCG, Serum, QUALITATIVE (01/06/2025 9:38 AM EDT) Beta-hCG Qual Negative Negative 01/06/2025 10:31 AM EDT [facility] Blood BLOOD SPECIMEN / Unknown Venipuncture / Unknown 01/06/2025 9:38 AM EDT 01/06/2025 9:48 AM EDT [facility] - 01/06/2025 10:31 AM EDT Negative: The result is less than or equal to 5 mIU/mL of HCG. Tunde Peñaloza DO LAB BLOOD ORDERABLES Fin al Result Performing Organization Address City/[facility]/ZIP Co de Phone Number [facility] [address] [place] [address] * (ABNORMAL) Hemoglobin A1c (01/06/2025 9:38 AM EDT) Hemoglobin A1C 10.7(H) 4.2 - 5.6 % 01/06/2025 7:01 PM EDT [facility] Estimated Average Glucose 260(H) 74 - 114 mg/dL 01/06/2025 7:01 PM EDT [facility] Comment: Blood BLOOD SPECIMEN / Unknown Venipuncture / Unknown 01/06/2025 9:38 AM EDT 01/06/2025 9:48 AM EDT [facility] - 01/06/2025 7:01 PM EDT Normal: 4.2% - 5.6% Increased risk for diabetes: 5.7% - 6.4% Diabetes: >= 6.5% Pediatrics: No established reference range Estimated average glucose: 74-114 mg/dL Twyla Rivas MD LAB BLOOD ORDERABLES Final Result Performing Organization Address City/[facility]/ZIP Co de Phone Number [facility] [address] [place] [address] * High Risk HPV with Genotype 16,18 (08/26/2021 3:41 PM EST) HPV 16 Negative Negative 08/31/2021 3:02 PM EST [facility] HPV 18 Negative Negative 08/31/2021 3:02 PM [facility] HPV, Other HR Types Negative Negative 08/31/2021 3:02 PM [facility] Pap, Liquid Based ENDOCERVICAL STRUCTURE / Unknown 08/26/2021 3:41 PM EST 08/29/2021 10:20 AM EST Narrative [facility] - 08/31/2021 3:02 PM EST Assay performed using Mariah Kristen 4800 system utilizing Real-Time PCR to amplify target HPV DNA. This system specifically identifies HPV16 and HPV18 while concurrently detecting the other twelve high risk types (31,33,35,39,45,51,52,56,58,59,66,68). us Shakila Doe MD BODY FLUIDS AND STOOLS O RDERABLES Final Result [facility] [address] [place] [address] * Thinprep Pap Smear (08/26/2021 3:41 PM EST) Case Report Gynecologic Cytology Report Case: [id number] Authorizing Provider: Shakila Doe MD Collected: 08/26/2021 03:41 PM Ordering Location: [facility] NEWSPAPER VENDOR - An Received: 08/29/2021 10:20 AM [facility] First Screen: Lori Cao Rescreen: Carie Murillo Specimen: THINPREP PAP SMEAR, Cervix / Endocervix 09/03/2021 9:44 PM [facility] LMP unk 09/03/2021 9:44 PM [facility] Interpretation Negative for intraepithelial lesion or malignancy 09/03/2021 9:44 PM [facility] at 2144 EST Specimen Adequacy Satisfactory for evaluation; transformation zone/endocervical component present 09/03/2021 9:44 PM [facility] Educational Note The Pap smear is a screening test for the detection of cervical cancer and its precursor lesions. False positive and false negative results can occur. The test should be performed at regular intervals, and positive results should be confirmed before definitive therapy. Additional testing methods may be helpful in detecting abnormalities or in clinical management. The specimen has been analyzed by the ThinPrep imaging system, an automated imaging and review system which assists the laboratory in evaluating cells on ThinPrep tests. Following automated imaging selected faulkner from every slide are reviewed by a area operations manager. Specimen processing and Primary Screening performed at: [facility] - [address] [place] [id number] 09/03/2021 9:44 PM [facility] HPV Results HPV 16 : Negative HPV 18 : Negative HPV, Other HR Types : Negative Assay performed using [employer] 4800 system utilizing Real-Time PCR to amplify target HPV DNA. This system specifically identifies HPV16 and HPV18 while concurrently detecting the other twelve high risk types (31,33,35,39,45,5 1,52,56,58,59,66, 68). These HPV results have been electronically added to this report as an aid for patient management. HPV testing performed at: [facility] - [address] [place] [id number] 09/03/2021 9:44 PM [facility] Hysterectomy Yes 09/03/2021 9:44 PM [facility] Pap, Liquid Based ENDOCERVICAL STRUCTURE / Unknown 08/26/2021 3:41 PM EST 08/29/2021 10:20 AM EST us Shakila Doe MD PATHOLOGY/CYTOLOGY ORDER RIC Final Result [facility] [address] [place] [id number] from Last 3 Months or Most Recently Relevant to Health Maintenance Insurance [address] [place] [address] [address] [place] [address] [employer] Advance Directives For more information, please contact: [phone] * Full Code (Latest Code Status on File) Date Activated Date Inactivated Comments 02/13/2025 7:10 PM 02/17/2025 8:11 PM * Full Code - Unverified Date Activated Date Inactivated Comments 02/13/2025 3:39 PM 02/13/2025 7:10 PM * Full Code Date Activated Date Inactivated Comments 01/06/2025 5:13 PM 01/08/2025 4:43 PM * Full Code Date Activated Date Inactivated Comments 06/12/2024 7:39 AM 06/13/2024 7:22 PM * Full Code Date Activated Date Inactivated Comments 04/03/2024 1:04 AM 04/05/2024 7:58 PM Care Teams Leave Specialist Relationship Specialty Start Date End Date Skye Jones CNP [address] [place] [address] PCP - General Nurse Practitioner 6/7/22
--- OUTSIDE RECORDS SUMMARY | 2025-03-04 09:35 | XMS_ITS | Encounter Summary ---
Author Organization [facility] tem Address [id number] [address] [place] [address] Care Team Providers Care Factory Supervisor Name Role Phone Skye Jones Primary Care Provider [phone] Reason for Referral * Diagnostic Imaging (Routine) - Pending Review Specialty Diagnoses / Procedures Referred By Contac t Referred To Contact Radiology Diagnoses Pain Procedures CT brain without contrast [facility] [address] [place] [phone] Phone: tel: fax: Referral ID Status Reason Start Date Expiration Date V isits Requested Visits Authorized [id number] Pending Review 03/30/2024 03/30/2025 1 1 * Diagnostic Imaging (Routine) - Pending Review Specialty Diagnoses / Procedures Referred By Contac t Referred To Contact Radiology Diagnoses Pain Procedures CT cervical spine without contrast [facility] [address] [place] [phone] Phone: tel: fax: Referral ID Status Reason Start Date Expiration Date V isits Requested Visits Authorized [id number] Pending Review 03/30/2024 03/30/2025 1 1 * Diagnostic Imaging (Routine) - Pending Review Specialty Diagnoses / Procedures Referred By Contac t Referred To Contact Radiology Diagnoses Pain Procedures CT chest without contrast [facility] [address] [place] [phone] Phone: tel: fax: Referral ID Status Reason Start Date Expiration Date V isits Requested Visits Authorized [id number] Pending Review 03/30/2024 03/30/2025 1 1 * Diagnostic Imaging (Routine) - Pending Review Specialty Diagnoses / Procedures Referred By Contac t Referred To Contact Radiology Diagnoses Pain Procedures MR brain without contrast [facility] [address] [place] [phone] Phone: tel: fax: Referral ID Status Reason Start Date Expiration Date V isits Requested Visits Authorized [id number] Pending Review 03/30/2024 03/30/2025 1 1 Encounter Details Date Type Department Care Team (Late st Contact Info) Description 03/30/2024 Orders Only [facility] [address] [place] [phone] Transcribe, Orders Support User Pain (Primary Dx) Social History Tobacco Use Types Packs/Day Years Used Date Smoking Tobacco: Never Smokeless Tobacco: Never Alcohol Use Standard Drinks/Week Comments Not Currently 0 (1 standard drink = 0.6 oz pur e alcohol) Hunger Screening Answer Date Recorded Within the past 12 months we worried whether our food would run out before we got money to buy more. Never True 07/23/2023 Within the past 12 months th e food we bought just didn't last and we didn't have money to get more. Never True 07/23/2023 Comments No Sex and Gender Information Value Date Recorded Sex Assigned at Not on file Legal Sex Female 10:27 PM EDT Gender Identity Not on file Sexual Orientation Not on file documented as of this encounter Plan of Treatment Not on file documented as of this encounter Results * MR brain without contrast (03/29/2024 10:50 AM EDT) us Scanning Provider External IMG MRI ORDERABLES Fi nal Result * CT chest without contrast (03/28/2024 5:20 PM EDT) us Scanning Provider External IMG CT ORDERABLES Fin al Result * CT cervical spine without contrast (03/28/2024 5:15 PM EDT) us Scanning Provider External IMG CT ORDERABLES Fin al Result * CT brain without contrast (03/28/2024 5:10 PM EDT) us Scanning Provider External IMG CT ORDERABLES Fin al Result documented in this encounter Visit Diagnoses Diagnosis Pain- Primary Generalized pain documented in this encounter Care Teams Factory Supervisor Relationship Specialty Start Date End Date Skye Jones [address] [facility] [address] [place] [address] PCP - General Family Medicine 12/12/21 documented as of this encounter
--- OUTSIDE RECORDS SUMMARY | 2025-03-04 09:35 | XMS_ITS | Encounter Summary ---
Author Organization [facility] Address [address] [place] [address] Care Team Providers Care Frame Cleaner Name Role Phone Skye Jones CNP Primary Care Provider [phone] Encounter Details Date Type Department Care Team (Late st Contact Info) Description 02/13/2025 Results Follow-Up [facility] [address] [place] [address] La Nena Avery RP,PharmD Urine Aerobic Culture Social History Tobacco Use Types Packs/Day Years Used Date Smoking Tobacco: Never Smokeless Tobacco: Never Alcohol Use Standard Drinks/Week Comments Never 0 (1 standard drink = 0.6 oz pur e alcohol) [facility] Utilities Answer Date Recorded In the past 12 months has e electric, gas, oil, or water [employer] threatened to shut off services in your [...] any time in the past 12 m [facility], were you homeless or living in a residential (including now)? No 02/13/2025 Comments No Sex and Gender Information Value Date Recorded Sex Assigned at Not on file Legal Sex Female 8:07 AM EDT Gender Identity Female 07/08/2020 9:32 PM EST Sexual Orientation Straight 07/08/2020 9 :32 PM EST documented as of this encounter Progress Notes * La Nena Avery RPh,PharmD - 02/13/2025 2:20 PM EDT Negative urine culture, patient was not discharged on antibiotics . No further action needed. documented in this encounter Plan of Treatment Not on file documented as of this encounter Visit Diagnoses Not on filedocumented in this encounter Additional Health Concerns Assessment Noted Time PHQ-2 Depression Total Score: 0 04/04/20 24 8:00 AM EDT documented as of this encounter Care Teams Frame Cleaner Relationship Specialty Start Date End Date Skye Jones CNP [address] [place] [phone] PCP - General Nurse Practitioner 12/03/21 documented as of this encounter
--- OUTSIDE RECORDS SUMMARY | 2025-03-04 09:35 | XMS_ITS | Clinical Summary ---
Author Organization [facility] Address [address] [place] [address] Care Team Providers Care Van Owner Operator Name Role Phone Jaron Solis MD Primary Care Provider [phone] Allergies Active Allergy Reactions Criticality Noted Date Comments Aspirin Unknown Low 04/23/2011 Pt states gives me nosebleeds nosebleeds Pt states gives me nosebleeds nosebleeds nosebleeds Azithromycin 01/05/2025 Charentais Melon (Maltese Melon) Hives,Swelling 01/28/2024 Ciprofloxacin Hives,Rash Medium 11/07/2019 Other reaction(s): Hives/Urticaria Fentanyl Hives,Itching,Rash ,Unknown High 02/20/2017 Other reaction(s): Hives, Hives/Urticaria Ketorolac Hives,Itching Medium 06/17/2013 Other reaction(s): Hives, Hives/Urticaria Meperidine Hives Medium 10/19/2012 Other reaction(s): Hives/Urticaria Meperidine Hcl Hives,Unknown Medium 04/23/2011 Morphine Hives,Rash,Unknown Medium 12/19/2015 Patient tolerates hydromorphone Other reaction(s): Hives, Hives/Urticaria, Unknown Reaction Nalbuphine Hives,Unknown Medium 12/22/2011 Other reaction(s): Hives, Hives/Urticaria Ondansetron Other 02/08/2024 Penicillins Hives,Swelling,Unk nown High 04/23/2011 Total body swelling- only injection, able to take oral amox Tolerates cefazolin Other reaction(s): Hives, Hives/Urticaria Medications Marilee 2.5 MG/0.5ML solution pen-injector Inject 2.5 Units as directed 1 (one) time per week 10/29/2022 Active insulin aspart (NovoLOG, Fiasp) 100 UNIT/ML patient supplied pump Inject 20 Units under the skin in the morning and 20 Units in the evening and 20 Units before bedtime. Active rosuvastatin (Crestor) 20 MG tablet Take 20 mg by mouth Daily Active tiZANidine (Zanaflex) 4 MG capsule Take 4 mg by mouth in the morning and 4 mg in the evening and 4 mg before bedtime. Active gabapentin (Neurontin) 600 MG tablet Take 600 mg by mouth in the morning and 600 mg in the evening and 600 mg before bedtime. Active loratadine (Claritin) 10 MG tablet 10 mg Daily Active metoprolol tartrate (Lopressor) 25 MG tablet 25 mg Active traZODone (Desyrel) 100 MG tablet Take 200 mg by mouth at bedtime Active hydrOXYzine pamoate (Vistaril) 50 MG capsule Take 50 mg by mouth every 6 (six) hours if needed 12/10/2022 Active DULoxetine (Cymbalta) [address] capsule Take 60 mg by mouth Daily 12/10/2022 Active OLANZapine (ZyPREXA) 5 MG tablet Take 5 mg by mouth at bedtime Active promethazine (Phenergan) 25 MG tablet 08/21/2023 Active ARIPiprazole (Abilify) 20 MG tablet 10/19/2023 Active Continuous Glucose Sensor (FreeStyle Myron 2 Sensor) [facility] 10/19/2023 Active Lantus SoloStar 100 UNIT/ML pen Acti ve insulin lispro (HumaLOG) 100 UNIT/ML injection 10/05/2023 Active Drug [place] Unifine Pentips Plus 32G X 4 MM [facility] 10/19/2023 Active meclizine (Antivert) 25 MG tablet Take 25 mg by mouth every 8 (eight) hours if needed 08/21/2023 Active pantoprazole (ProtoNix) 40 MG EC tablet Take 40 mg by mouth in the morning. Active Jardiance 25 MG Take 25 mg by mouth Daily 12/16/2023 Active albuterol HFA 90 mcg/act inhaler Inhale 2 puffs every 6 (six) hours if needed Active Continuous Glucose Maintenance Inspector (FreeStyle Myron 3 Pine) device 06/30/2024 Active fluticasone (Flonase) 50 MCG/ACT nasal spray 07/30/2024 Active ondansetron (Zofran) 4 MG tablet TAKE 1 TABLET BY MOUTH EVERY 8 HOURS NEEDED EVERY 48 hours 09/29/2024 Active oxyCODONE-aceta minophen (Percocet) 5-325 MG tablet 11/12/2024 Act isabella acetaminophen (Tylenol Extra Strength) 500 MG tabletIndicatio ns:Secondary adhesive capsulitis of left shoulder Take 1 tablet (500 mg) by mouth every 4 (four) hours if needed for mild pain 40 tablet 12/06/2024 Active methocarbamol (Robaxin) 500 MG tablet Take 500 mg by mouth in the morning and 500 mg at noon and 500 mg in the evening. 12/20/2024 Active Active Problems Problem Noted Date Diagnosed Date Left knee pain 06/11/2015 Resolved Problems Problem Noted Date Diagnosed Date Resolved Date Hypertension 11/24/2013 12/11/2022 Encounters Date Type Department Care Team Description 01/05/2025 9:15 AM EDT Office Visit [facility] [address] [place] [address] Omi Watkins DO Arthrofibrosis of right shoulder (Primary Dx) 01/05/2025 Bamboo flowsheet [facility] [address] [place] [phone] Omi Watkins DO 01/05/2025 Travel 12/06/2024 Telephone [facility] [address] [place] [address] Lilian Roberson RN from Last 3 Months Family History Medical History Relation Name Comments Cancer Father Rich Heart disease Father Rich Hypertension Father Rich Hypertension Mother Relation Name Status Comments Daughter Alive Father Rich Maternal Grandfather Maternal Grandmother Mother Alive Paternal Grandfather Paternal Grandmother Sibling Alive Son Alive Social History Tobacco Use Types Packs/Day Years Used Date Smoking Tobacco: Never Smokeless Tobacco: Never Tobacco Cessation:Counseling Given: Not Answered Alcohol Use Standard Drinks/Week Comments Never 0 (1 standard drink = 0.6 oz pur e alcohol) caffeine intake: coffee, tea Comments Unknown Sex and Gender Information Value Date Recorded Sex Assigned at Not on file Legal Sex Female 7:21 PM EDT Gender Identity Not on file Sexual Orientation Not on file Last Filed Vital Signs Vital Sign Reading Time Taken Comments Blood Pressure - - Pulse - - Temperature 36.3 C (97.4 F) 07/14/2024 1:24 PM EST Respiratory Rate - - Oxygen Saturation - - Inhaled Oxygen Concentration - - Weight 126 kg (277 lb) 01/05/2025 9:37 AM EDT Height 170.2 cm (5' 7 ) 01/05/2025 9:37 AM EDT Body Mass Index 43.38 01/05/2025 9:37 AM EDT Plan of Treatment Upcoming Encounters Date Type Department Care Team (Late st Contact Info) Description 03/16/2025 2:15 PM EDT Office Visit [facility] [address] [place] [phone] Omi Watkins DO [address] [place] [address] Insurance [employer] Care Teams Van Owner Operator Relationship Specialty [place] [address] [place] [address] [address] [place] [address] PCP - General Family Medicine 01/15/23
--- OUTSIDE RECORDS SUMMARY | 2025-03-04 09:35 | XMS_ITS | Clinical Summary ---
Author Organization [facility] tem Address [id number] [address] [place] [address] Care Team Providers Care Chemical Engineering Professor Name Role Phone Skye Jones Primary Care Provider [phone] Allergies Active Allergy Reactions Criticality Noted Date Comments Ciprofloxacin Hives 05/29/2022 Meperidine 12/12/2021 Fentanyl Itching 12/12/2021 Morphine 12/12/2021 Nalbuphine 12/12/2021 Penicillins 12/12/2021 Ketorolac 12/12/2021 Medications insulin lispro (HumaLOG) 100 unit/mL injection Inject 0.35 mL (35 Units total) under the skin in the morning and 0.35 mL (35 Units total) at noon and 0.35 mL (35 Units total) in the evening. Inject before meals. Active gabapentin (NEURONTIN) 600 mg tablet Take 1 tablet (600 mg total) by mouth 3 (three) times a day. Active tiZANidine (ZANAFLEX) 4 mg tablet Take 1 tablet (4 mg total) by mouth every 8 (eight) hours as needed for muscle spasms. Active traZODone (DESYREL) 100 mg tablet Take 2 tablets (200 mg total) by mouth nightly. Active rosuvastatin (CRESTOR) 20 mg tablet Take 1 tablet (20 mg total) by mouth in the morning. Active ARIPiprazole (ABILIFY) 10 mg tablet Take 1 tablet (10 mg total) by mouth in the morning. Active OLANZapine (ZyPREXA) 5 mg tablet Take 1 tablet (5 mg total) by mouth every 6 (six) hours as needed. Active venlafaxine XR (EFFEXOR-XR) 150 mg 24 hr capsule Take 1 capsule (150 mg total) by mouth in the morning. Active loratadine (CLARITIN REDITABS) 10 mg disintegrating tablet Dissolve 1 tablet (10 mg total) on tongue in the morning. Active pantoprazole (PROTONIX) 40 mg EC tablet Take 1 tablet (40 mg total) by mouth in the morning. Active celecoxib (CeleBREX) 200 mg capsule Take 1 capsule (200 mg total) by mouth in the morning. Active metoprolol tartrate (LOPRESSOR) 50 mg tablet Take 1 tablet (50 mg total) by mouth in the morning and 1 tablet (50 mg total) before bedtime. Active insulin glargine (LANTUS, BASAGLAR) 100 unit/mL (3 mL) insulin penIndications:type 2 diabetes mellitus Inject 32 Units under the skin in the morning. Indications: type 2 diabetes mellitus. Active acetaminophen (TYLENOL EXTRA STRENGTH) 500 mg tablet Take 2 tablets (1,000 mg total) by mouth every 6 (six) hours as needed for pain. 30 tablet 3 Active DULoxetine (CYMBALTA) 30 mg capsule Take 1 capsule (30 mg total) by mouth in the morning. Two tablets in am and 1 tablet in the evening. Active promethazine (PHENERGAN) 25 mg tablet Take 1 tablet (25 mg total) by mouth every 6 (six) hours as needed for nausea or vomiting. 15 tablet 3 Active Active Problems Problem Noted Date Diagnosed Date Recurrent urinary tract infection 08/22/2024 Overview (08/22/2024): ==== 08/22/2024 ==== recurrent UTIs. Burning urgency frequency. Started roughly within last decade or so. Not requiring hospitalization. Plan: Cysto [facility] bladder solution. Standing order urine culture. upper tracts demonstrated on the CT scan were negative by report Nephrolithiasis 08/22/2024 Overview (08/22/2024): April [address] CT scan [facility]. Small stone right upper pole on left lower pole. Also CT scan June of 2024. Nonobstructing findings as well. ==== 08/22/2024 ==== first-time stones approximately 2006. In her past treatment at least a few times. Last was about 2 years ago. ESWL. Outside urologist. Did have CT scan February 2023 no stones noted at that time patient states however she has passed stones in the interim. Plan: KUB at some point to monitor stone. 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 Recent serum calcium evaluated 9.4 AMS (altered mental status) 03/06/2023 Social History Tobacco Use Types Packs/Day Years Used Date Smoking Tobacco: Never Smokeless Tobacco: Never Tobacco Cessation:Counseling Given: Not Answered Alcohol Use Standard Drinks/Week Comments Not Currently 0 (1 standard drink = 0.6 oz pur e alcohol) Hunger Screening Answer Date Recorded Within the past 12 months we worried whether our food would run out before we got money to buy more. Never True 08/22/2024 Within the past 12 months th e food we bought just didn't last and we didn't have money to get more. Never True 08/22/2024 Comments No Sex and Gender Information Value Date Recorded Sex Assigned at Not on file Legal Sex Female 10:27 PM EDT Gender Identity Not on file Sexual Orientation Not on file Last Filed Vital Signs Vital Sign Reading Time Taken Comments Blood Pressure 123/87 08/22/2024 2:05 PM EST Pulse 132 08/22/2024 2:05 PM EST Temperature 36.6 C (97.8 F) 07/23/2023 4:18 PM EST Respiratory Rate 18 07/23/2023 4:18 PM EST Oxygen Saturation 98% 07/23/2023 4:18 PM EST Inhaled Oxygen Concentration - - Weight 122.5 kg (270 lb) 08/22/2024 2:05 PM EST Height 170.2 cm (5' 7 ) 08/22/2024 2:05 PM EST Body Mass Index 42.29 08/22/2024 2:05 PM EST Plan of Treatment Health Maintenance Due Date Last Done Comments Depression Screening 1987 Adult BMI Follow Up Plan 1993 Influenza Vaccine 02/27/2025 04/28/2024, 04/23/2018 Adult BMI Screening 08/22/2025 08/22/2024 Tobacco Screening 08/22/2025 08/22/2024 DTaP,Tdap and Td Vaccines (2 - Td or Tdap) 12/01/2032 12/01/2022 Pap Smear Discontinued 08/26/2021 Medical Devices Not on file Insurance [employer] Advance Directives * Full Code (Latest Code Status on File) Date Activated Date Inactivated Comments 03/06/2023 9:36 PM 03/08/2023 5:59 PM Care Teams Chemical Engineering Professor Relationship Specialty Start Date End Date Skye Jones [address] [place] [address] PCP - General Family Medicine 12/12/21
--- OUTSIDE RECORDS SUMMARY | 2025-03-04 09:35 | XMS_ITS | Encounter Summary ---
Author Organization [facility] Address [address] [facility] [place] [address] Care Team Providers Care Nurse Transition Name Role Phone Jaron Solis MD Primary Care Provider [phone] Encounter Details Date Type Department Care Team (Late st Contact Info) Description 06/02/2023 Orders Only [facility] [address] [place] [address] Omi Watkins DO [address] [place] [address] Status post shoulder surgery (Primary Dx) Social History Tobacco Use Types [...] as of this encounter Plan of Treatment Upcoming Encounters Date Type Department Care Team (Late st Contact Info) Description 03/16/2025 2:15 PM EDT Office Visit [facility] [address] [facility] [place] [address] Omi Watkins DO [address] [place] [address] documented as of this encounter Visit Diagnoses Diagnosis Status post shoulder surgery- Primary Other postprocedural status documented in this encounter Care Teams Nurse Transition Relationship Specialty Start Date End Date Jaron Solis MD [address] [facility] [address] [place] [address] PCP - General Family Medicine 01/15/23 documented as of this encounter
--- OUTSIDE RECORDS SUMMARY | 2025-03-04 09:35 | XMS_ITS | Encounter Summary ---
Author Organization [facility] Address [address] [place] [address] Phone Care Team Providers Care Weigher Alloy Name Role Phone Skye Jones Primary Care Pr ovider Encounter Details Date Type Department Care Team (Late st Contact Info) Description 02/04/2025 Results Follow-Up [facility] [address] [place] [address] Werner Jules, PharmD [address] [place] [address] Urine Culture Social History Tobacco Use Types Packs/Day Years Used Date Smoking Tobacco: Never Passive Smoke Exposure: Never Smokeless Tobacco: Never Alcohol Use Standard Drinks/Week Comments Defer 0 (1 standard drink = 0.6 oz pur e alcohol) Comments Unknown Sex and Gender Information Value Date Recorded Sex Assigned at Not on file Legal Sex Female 6:27 AM EST Gender Identity Not on file Sexual Orientation Not on file documented as of this encounter Plan of Treatment Not on file documented as of this encounter Visit Diagnoses Not on filedocumented in this encounter Care Teams Weigher Alloy Relationship Specialty Start Date End Date Skye Jones APRN-CNP [address] [place], [place] [id number] PCP - General 11/28/21 documented as of this encounter
--- OUTSIDE RECORDS SUMMARY | 2025-03-04 09:35 | XMS_ITS | Encounter Summary ---
Author Organization [facility] Address [address] [place] [address] Phone Care Team Providers Care Early Education Teacher Name Role Phone Skye Jones CHEMICAL EDUCATOR-CADDY Primary Care Pr ovider Encounter Details Date Type Department Care Team (Late st Contact Info) Description 03/13/2015 Legacy Encounter [facility] [address] [place] [address] Conversion, Copath Social History Tobacco Use Types Packs/Day Years Used Date Smoking Tobacco: Never Assessed Comments Unknown Sex and Gender Information Value Date Recorded Sex Assigned at Not on file Legal Sex Female 6:27 AM EST Gender Identity Not on file Sexual Orientation Not on file COVID-19 Exposure Response Date Recorded In the last 10 days, have yo u been in contact with someone who was confirmed or suspected to have Coronavirus/COVID-19? No / Unsure 05/05/2024 12:30 PM EST documented as of this encounter Functional Status * Calculated C-SSRS Risk Score (Lifetime/Recent) Answer Date of Assessment Author No Risk Indicated 02/01/2025 11:01 PM EDT Trinh Patterson, SHALOM * Riley Suicide Severity Rating Scale (Screener/Recent Self-Report) Question Answer Date of Assessment Author 1. Wish to be (Past 1 Month) No 025 11:01 PM EDTrinh Jacobson, RN 2. Non-Specific Active Suici braulio Thoughts (Past 1 Month) No 02/01/2025 11:01 PM EDT Agnieszka Patterson RN 6. Suicidal Behavior (Lifetime) No 5 11:01 PM EDT Trinh Patterson RN documented as of this encounter Plan of Treatment Not on file documented as of this encounter Procedures Procedure Name Priority Date/Time Associated Diagnosis Comments CONVERTED NON-KOSHER SEALER CYTOLOGY Routine 03/13/2015 12:00 AM EDT documented in this encounter Results * CONVERTED NON-KOSHER SEALER CYTOLOGY (03/13/2015 12:00 AM EDT) Pathology Report Patient Name BREE PAT Date of Procedure: 03/13/2015 Date Reported: 03/15/2015 Date Received: 03/14/2015 Date of / Sex 1975 (Age: 39) / F Race: Submitting Physician: Other External # Other Related Clinical Data SoftPath Conversion Details (02/06/2020) [facility] SoftPath Billing #: [id number] Requesting Provider: CHARLIE CASTILLO Procedure Date: 03/13/2015 Ordered: 03/14/2015 01:47 PM Signed Out: 03/15/2015 01:20 PM Case Pathologist: LYDIA WALLACE M.D. Signout-Clerical: LYDIA WALLACE M.D. Case Type: MED Cytology Case Priority: Routine Diagnosis Type: Abnormal Status History: 03/14/2015 01:48 PM Spec. Process. Entry Aguilar RHODEStechnologist 03/14/2015 01:48 PM Slide Staining Krunal RHODESnologist 03/15/2015 08:39 AM Edit Final DGN Codes Aguilar RHODEStechnologist 03/15/2015 08:39 AM Final Dx Entered Gareth RHODES 03/15/2015 01:20 PM Edit Final Dx Codes (a) LYDIA WALLACE M.D. 03/15/2015 01:20 PM Edit Final DGN Codes LYDIA WALLACE M.D. 03/15/2015 01:20 PM Proreview Done (MNO) LYDIA WALLACE M.D. 03/15/2015 01:20 PM Sign Out (MNO) LYDIA WALLACE M.D. 03/15/2015 01:20 PM Sign Out from QA Entry (MNO) LYDIA WALLACE M.D. 03/15/2015 01:35 PM Result sent to HIS IMAGE LYDIA WALLACE M.D. 03/15/2015 02:12 PM Final Rpt Printed SCC 03/15/2015 07:10 PM Final Rpt Printed SCC 03/15/2015 11:33 PM Final Rpt Printed SCC 03/16/2015 07:09 PM Final Rpt Printed SCC FINAL CYTOLOGICAL INTERPRETATION FINAL NON-GYNECOLOGIC CYTOLOGY REPORT [id number] FINAL DIAGNOSIS CATEGORIZATION Atypical cells present. DIAGNOSIS URINE CYTOLOGY Rare atypical cells present. SPECIMEN SOURCE (A) URINE, BLADDER URINE Monolayers: 1 50 cc Yellow fluid, Unfixed Flank pain Screened by JAX SEVERINO Wedding Makeup Artist on 03/15/2015 08:39 Signed by LYDIA WALLACE M.D. on 03/15/2015 13:20 Electronically Signed Out By [facility],/ G By the signature on this report, the individual or group listed as making the Final Interpretation/Diag nosis certifies that they have reviewed this case. Slide(s) initially screened by a Wedding Makeup Artist at [facility] [address] [place] [address] Clinical History [facility] Department of Pathology [address] [place] [id number] [facility] CONVERTED FINAL DIAGNOSIS FINAL NON-GYNECOLOGIC CYTOLOGY REPORT [id number] FINAL DIAGNOSIS CATEGORIZATION Atypical cells present. DIAGNOSIS URINE CYTOLOGY Rare atypical cells present. SPECIMEN SOURCE (A) URINE, BLADDER URINE Monolayers: 1 50 cc Yellow fluid, Unfixed Flank pain Screened by JAX SEVERINO Wedding Makeup Artist on 03/15/2015 08:39 Signed by LYDIA WALLACE M.D. on 03/15/2015 13:20 [facility] CONVERTED OTHER RELATED CLINICAL DATA SoftPath Conversion Details (02/06/2020) [facility] SoftPath SoftPath Billing #: [id number] Requesting Provider: CHARLIE Porter Date: 03/13/2015 Ordered: 03/14/2015 01:47 PM Signed Out: 03/15/2015 01:20 PM Case Pathologist: LYDIA WALLACE M.D. Signout-Clerical: LYDIA WALLACE M.D. Case Type: MED Cytology Case Priority: Routine Diagnosis Type: Abnormal Status History: 03/14/2015 01:48 PM Spec. Process. Entry Krunal RHODESnologist 03/14/2015 01:48 PM Slide Staining Krunal RHODESnologist 03/15/2015 08:39 AM Edit Final DGN Codes Krunal RHODESnologist 03/15/2015 08:39 AM Final Dx Entered Nii RHODESlogist 03/15/2015 01:20 PM Edit Final Dx Codes (a) LYDIA WALLACE M.D. 03/15/2015 01:20 PM Edit Final DGN Codes LYDIA WALLACE M.D. 03/15/2015 01:20 PM Proreview Done (MNO) LYDIA WALLACE M.D. 03/15/2015 01:20 PM Sign Out (MNO) LYDIA WALLACE M.D. 03/15/2015 01:20 PM Sign Out from QA Entry (MNO) LYDIA WALLACE M.D. 03/15/2015 01:35 PM Result sent to HIS IMAGE LYDIA WALLACE M.D. 03/15/2015 02:12 PM Final Rpt Printed SCC 03/15/2015 07:10 PM Final Rpt Printed SCC 03/15/2015 11:33 PM Final Rpt Printed SCC 03/16/2015 07:09 PM Final Rpt Printed SCC [facility] CONVERTED FINAL REPORT PDF LINK TO COPY AND PASTE \copathshare\copat h\PDF [id number] [facility] Unrecognized Part Type 03/13/2015 03/14/2015 1:47 PM EDT us Copath Conversion LAB CYTOLOGY ORDERABLES Final Result [facility] [id number] [place] [address] documented in this encounter Visit Diagnoses Not on filedocumented in this encounter Care Teams Early Education Teacher Relationship Specialty Start Date End Date Skye Jones APRN-CNP [address] [place], [place] [id number] PCP - General 11/28/21 documented as of this encounter
--- OUTSIDE RECORDS SUMMARY | 2025-03-04 09:35 | XMS_ITS | Encounter Summary ---
Author Organization [facility] Address [address] [facility] [place] [address] Care Team Providers Care Four Horse Hitch Driver Name Role Phone Jaron Solis MD Primary Care Provider [phone] Encounter Details Date Type Department Care Team (Late st Contact Info) Description 01/24/2024 Abstract [facility] [address] [place] [address] Omi Watkins DO [address] [place] [address] Social History Tobacco Use Types Packs/Day Years [...] Description 03/16/2025 2:15 PM EDT Office Visit [facility] [address] [place] [address] Omi Watkins DO [address] [place] [address] documented as of this encounter Visit Diagnoses Not on filedocumented in this encounter Care Teams Four Horse Hitch Driver Relationship Specialty Start Date End Date Jaron Solis MD [address] [place] [address] PCP - General Family Medicine 01/15/23 documented as of this encounter
--- OUTSIDE RECORDS SUMMARY | 2025-03-04 09:35 | XMS_ITS | Encounter Summary ---
Author Organization [employer] Address [id number] [place] [address] Care Team Providers Care Bulk Sugar Handler Name Role Phone Skye Jones Primary Care Provider [phone] Encounter Details Date Type Department Care Team (Late st Contact Info) Description 09/30/2024 Orders Only [facility] [address] [place] [address] External, Scanning Provider Social History Tobacco Use Types Packs/Day Years [...] Procedure Name Priority Date/Time Associated Diagnosis Comments MULTIPLE LABS Routine 09/30/2024 documented in this encounter Results * Multiple labs (09/30/2024) us Scanning Provider External [place] [facility] Edite d Result - Final MANUALLY TRANSCRIBED RESULTS documented in this encounter Visit Diagnoses Not on filedocumented in this encounter Care Teams Bulk Sugar Handler Relationship Specialty Start Date End Date Skye Jones [address] [facility] [address] [place], [place] [address] PCP - General Family Medicine 12/12/21 documented as of this encounter
--- OUTSIDE RECORDS SUMMARY | 2025-03-04 09:35 | XMS_ITS | Patient Health Record ---
Author Organization [facility] [place] Address [address] [place] [address] Care Team Providers Care Plant Accountant Name Role Phone None, Unknown or Primary Care Provider Unavailab le Allergies Allergen (clinical drug ingredient) Drug/Non Drug Allergy documented on EMR Reaction Allergy Type Onset Date Status ketorolac toradol (uncoded) Unknown Allergy Ac tive meperidine Demerol dropped BP Drug Allergy Activ e Nubain hives Drug Allergy Active fentanyl Fentanyl itching/rash Drug Allergy Acti ve morphine Morphine itching/rash Drug Allergy Acti ve Penicillin Hives Drug Allergy Active Reason For Referral No Information Medications Medication SIG (Take, Route, Frequency, Duration) Notes Start Date End Date Status Cymbalta 60 MG 1 capsule Orally in the AM Active Insulin Aspart 100 UNIT/ML as directed Injection Active Abilify Active Cymbalta 30 MG 1 capsule Orally at night Active traZODone HCl 150 MG 1 tablet at bedtime Orally Once a day Active Protonix 40 MG 1 tablet Orally Once a day Active CeleBREX 100 MG 1 capsule with food Orally Once a day Active Crestor Active Social History Tobacco Use: Social History Observation Description Date Details (start date - stop date) Never Smoker NA - NA Tobacco Use/Smoking Question Answer Notes Patient is a nonsmoker Problems Problem Type SNOMED Code ICD Code Onset Dates Problem Status W/U Status Risk Notes Problem Neurosis (188120685) Psychiatric problem (F99) Active confirmed Plan Of Treatment No Information Insurance Providers Payer Name Payer Address Payer Phone Subscriber Number Group Number Insured Name Patient Relationship to Insured Coverage Start Date Coverage End Date [employer] [place] [employer] [address] [place] [address] [id number] Bree Carlton Self - patient is the insured Medical (General) History Medical History History ICD Code Diabetes E11.9 High cholesterol E78.00 Substance abuse F19.10 Hypertension I10 GERD (gastroesophageal reflux disease) K 21.9 Surgical History Surgery Date(Month/Year) right leg fracture carpal tunnel bilateral right shoulder (bicep and rotator cuff) 3 trigger release hysterectomy
--- OUTSIDE RECORDS SUMMARY | 2025-03-04 09:35 | XMS_ITS | Clinical Summary ---
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 Primary Care Pr ovider Allergies Active Allergy Reactions Criticality Noted Date Comments Aspirin Unknown,Other Low 04/23/2011 nosebleeds Pt states gives me nosebleeds nosebleeds Pt states gives me nosebleeds nosebleeds nosebleeds Pt states gives me nosebleeds Pt states gives me nosebleeds nosebleeds nosebleeds Azithromycin Hives 10/19/2012 Ciprofloxacin Hives,Rash Medium 11/07/2019 Other reaction(s): Hives/Urticaria Fentanyl Hives,Itching,Rash,U n known High 02/20/2017 Other reaction(s): Hives, Hives/Urticaria Ketorolac Unknown 02/08/2024 Melon Hives,Swelling 01/28/2024 Meperidine (Pf) Hives 10/19/2012 Morphine Hives,Rash,Other Medium 12/19/2015 Patient tolerates hydromorphone Other reaction(s): Hives, Hives/Urticaria, Unknown Reaction Patient tolerates hydromorphone Other reaction(s): Hives, Hives/Urticaria, Unknown Reaction Nalbuphine Hives,Unknown Medium 12/22/2011 Other reaction(s): Hives, Hives/Urticaria Penicillins Hives,Swelling,Other High 04/23/2011 Total body swelling- only injection, able to take oral amox Tolerates cefazolin Other reaction(s): Hives, Hives/Urticaria Tolerates cefazolin Other reaction(s): Hives, Hives/Urticaria Medications cyclobenzaprine (Flexeril) 10 mg tabletIndications:F lank pain Take 1 tablet (10 mg) by mouth 2 times a day as needed for muscle spasms for up to 5 days. 10 tablet 5 Active methocarbamol (Robaxin) 500 mg tabletIndications:A cute right flank pain,Acute cystitis with hematuria,Renal colic on right side Take 1 tablet (500 mg) by mouth 3 times a day for 7 days. 21 tablet 5 Active metoclopramide (Reglan) 10 mg tabletIndications:N ausea and vomiting, unspecified vomiting type Take 1 tablet (10 mg) by mouth every 6 hours if needed (Nausea vomiting) for up to 7 days. 15 tablet 5 Active methocarbamol (Robaxin) 500 mg tabletIndications:F lank pain Take 2 tablets (1,000 mg) by mouth 4 times a day as needed (flank pain). 30 tablet 5 Active cefuroxime (Ceftin) 250 mg tabletIndications:A cute pyelonephritis Take 1 tablet (250 mg) by mouth 2 times a day for 7 days. 14 tablet 02/07/2025 7:59 PM EDT 5 02/15/20 25 Active Problems Problem Noted Date Diagnosed Date Biliary calculus 12/12/2024 Chronic pharyngitis 12/12/2024 Type 2 diabetes mellitus 12/12/2024 Gastroesophageal reflux disease 12/12/2024 HLD (hyperlipidemia) 12/12/2024 Hypokalemia 12/12/2024 Chronic pain 12/12/2024 Nephrolithiasis 08/22/2024 Overview (12/12/2024): April [address] scan [facility]. Small stone right upper pole on left [...] KUB at some point to monitor stone. Acute pancreatitis 01/26/2024 Constipation 06/07/2023 Depressive disorder 03/29/2023 AMS (altered mental status) 03/06/2023 Malingerer 05/11/2022 Hypotension 12/04/2021 Hematuria 02/01/2021 Encounters Date Type Department Care Team Description 02/04/2025 Results Follow-Up [facility] [address] [place] [address] Werner Jules PharmD Urine Culture 02/04/2025 Telephone [facility] [address] [place] [address] Werner Jules, PharmD Results 02/01/2025 11:14 PM EDT - 02/02/2025 1:30 AM EDT Emergency [facility] [address] [place] [phone] Flank pain (Primary Dx) Discharge Disposition: Home 02/01/2025 Travel 01/03/2025 11:12 AM EDT - 01/03/2025 12:21 PM EDT Emergency [facility] Emergency [facility] [address] [place] [phone] Teto Butler MD Flank pain (Primary Dx) Discharge Disposition: Against Medical Advice 01/03/2025 Telephone [facility] [address] [place] [address] Jennifer Nowak, PharmD Results 01/03/2025 Travel 12/31/2024 4:15 PM EDT - 12/31/2024 11:59 PM EDT Hospital Encounter [address] [phone] Discharge Disposition: Home 12/30/2024 1:13 AM EDT - 12/30/2024 7:26 AM EDT Emergency [facility] Emergency Medicine [address] [place] [address] Gely Silverio MD Urinary tract infection with hematuria, site unspecified (Primary Dx); Chest pain, unspecified type; Flank pain Discharge Disposition: Home 12/29/2024 Travel 12/20/2024 3:34 AM EDT - 12/20/2024 5:55 AM EDT Emergency [facility] [address] [place] [phone] Acute right flank pain (Primary Dx); Acute cystitis with hematuria; Renal colic on right side; Nausea and vomiting, unspecified vomiting type Discharge Disposition: Home 12/20/2024 Travel 12/12/2024 3:31 AM EDT - 12/12/2024 8:46 AM EDT Emergency [facility] Emergency Medicine [address] [place] [phone] Flank pain (Primary Dx) Discharge Disposition: Home 12/12/2024 Travel from Last 3 Months Social History Tobacco Use Types Packs/Day Years Used Date Smoking Tobacco: Never Passive Smoke Exposure: Never Smokeless Tobacco: Never Tobacco Cessation:Counseling Given: Not Answered Alcohol Use Standard Drinks/Week Comments Defer 0 (1 standard drink = 0.6 oz pur e alcohol) Comments Unknown Sex and Gender Information Value Date Recorded Sex Assigned at Not on file Legal Sex Female 6:27 AM EST Gender Identity Not on file Sexual Orientation Not on file Last Filed Vital Signs Vital Sign Reading Time Taken Comments Blood Pressure 141/82 02/02/2025 1:16 AM EDT Pulse 115 02/02/2025 1:16 AM EDT Temperature 36.7 C (98.1 F) 02/01/2025 10:57 PM EDT Respiratory Rate 16 02/02/2025 1:16 AM EDT Oxygen Saturation 95% 02/02/2025 1:16 AM EDT Inhaled Oxygen Concentration - - Weight 122 kg (270 lb) 02/01/2025 10:57 PM EDT Height 170.2 cm (5' 7 ) 02/01/2025 10:57 PM EDT Body Mass Index 42.29 02/01/2025 10:57 PM EDT Plan of Treatment Health Maintenance Due Date Last Done Comments CT Colonography 1975 Colonoscopy 1975 Colorectal Cancer Screening 1975 Diabetes: Urine Protein Screening 1975 FIT-DNA (Cologuard) 1975 FIT 1975 HIV Screening 1975 Lipid Panel 1975 Sigmoidoscopy 1975 MMR Vaccines (1 of 1 - Standard series) 1976 Diabetes: Retinopathy Screening 1985 Hepatitis C Screening 1993 Hepatitis A Vaccines (1 of 2 - Risk 2-dose series) 1994 Hepatitis B Vaccines (1 of 3 - 19+ 3-dose series) 1994 HPV/Cotest 1996 Mammogram 2015 Yearly Adult Physical 08/27/2022 08/26/2021 Cervical Cancer Screening 08/26/2024 Pap Smear 08/26/2024 08/26/2021 COVID-19 Vaccine ( - season) 2025 Influenza Vaccine (#1) 2025 04/28/2024, 2017 Diabetes: Hemoglobin A1C 04/08/2025 025, 02/24/2024, 01/28/2021, Additional history exists Zoster Vaccines (1 of 2) 2025 DTaP/Tdap/Td Vaccines (2 - Td or Tdap) 12/01/2032 12/01/2022 Pneumococcal Vaccine: Pediatrics and At-Risk Adult Patients Completed 12/01/2022 HIB Vaccines Aged Out No longer eligi ble based on patient's age to complete this topic HPV Vaccines Aged Out No longer eligi ble based on patient's age to complete this topic IPV Vaccines Aged Out No longer eligi ble based on patient's age to complete this topic Meningococcal Vaccine Aged Out No ben damon eligible based on patient's age to complete this topic Rotavirus Vaccines Aged Out No longer eligible based on patient's age to complete this topic Procedures Procedure Name Priority Date/Time Associated Diagnosis Comments CT ABDOMEN PELVIS WO IV CONTRAST STAT 02/02/2025 12:17 AM EDT LACTATE STAT 02/01/2025 11:24 PM EDT LIPASE STAT 02/01/2025 11:24 PM EDT COMPREHENSIVE METABOLIC PANEL STAT 02/01/2025 11:24 PM EDT MAGNESIUM STAT 02/01/2025 11:24 PM EDT CBC WITH AUTO DIFFERENTIAL STAT 02/01/2025 11:24 PM EDT URINALYSIS MICROSCOPIC ONLY STAT 02/01/2025 11:05 PM EDT EXTRA URINE HANCOCK TUBE STAT 02/01/2025 11:05 PM EDT URINALYSIS WITH REFLEX MICROSCOPIC AND CULTURE STAT 02/01/2025 11:05 PM EDT URINALYSIS WITH REFLEX MICROSCOPIC AND CULTURE STAT 02/01/2025 11:05 PM EDT URINE CULTURE STAT 02/01/2025 11:05 PM EDT ECG 12-LEAD STAT 12/31/2024 4:[address] ABDOMEN PELVIS WO IV CONTRAST STAT 12/30/2024 3:[address] ANGIO CHEST FOR PULMONARY EMBOLISM STAT 12/30/2024 3:15 AM EDT POCT GLUCOSE Routine 12/30/2024 2:47 AM EDT XR CHEST 1 VIEW STAT 12/30/2024 2:28 AM EDT SERIAL TROPONIN, 1 HOUR STAT 12/30/2024 2:21 AM EDT ECG 12-LEAD STAT 12/30/2024 2:17 AM EDT URINALYSIS MICROSCOPIC ONLY STAT 12/30/2024 1:42 AM EDT EXTRA URINE HANCOCK TUBE STAT 12/30/2024 1:42 AM EDT URINALYSIS WITH REFLEX MICROSCOPIC AND CULTURE STAT 12/30/2024 1:42 AM EDT URINALYSIS WITH REFLEX MICROSCOPIC AND CULTURE STAT 12/30/2024 1:42 AM EDT URINE CULTURE STAT 12/30/2024 1:42 AM EDT SERIAL TROPONIN-INITIAL STAT 12/30/2024 1:34 AM EDT D-DIMER, VTE EXCLUSION STAT 1:34 AM EDT TROPONIN SERIES- (INITIAL, 1 HR) STAT 12/30/2024 1:34 AM EDT LACTATE STAT 12/30/2024 1:34 AM EDT COMPREHENSIVE METABOLIC PANEL STAT 12/30/2024 1:34 AM EDT CBC WITH AUTO DIFFERENTIAL STAT 12/30/2024 1:[address] ABDOMEN PELVIS WO IV CONTRAST STAT 12/20/2024 4:54 AM EDT URINALYSIS MICROSCOPIC ONLY STAT 12/20/2024 3:55 AM EDT EXTRA URINE HANCOCK TUBE STAT 12/20/2024 3:55 AM EDT URINALYSIS WITH REFLEX MICROSCOPIC AND CULTURE STAT 12/20/2024 3:55 AM EDT COMPREHENSIVE METABOLIC PANEL STAT 12/20/2024 3:55 AM EDT CBC WITH AUTO DIFFERENTIAL STAT 12/20/2024 3:55 AM EDT URINALYSIS WITH REFLEX MICROSCOPIC AND CULTURE STAT 12/20/2024 3:55 AM EDT URINE CULTURE STAT 12/20/2024 3:55 AM EDT MAGNESIUM STAT 12/12/2024 5:12 AM EDT COMPREHENSIVE METABOLIC PANEL STAT 12/12/2024 5:12 AM EDT CBC WITH AUTO DIFFERENTIAL STAT 12/12/2024 5:[address] ABDOMEN PELVIS WO IV CONTRAST STAT 12/12/2024 5:04 AM EDT URINALYSIS MICROSCOPIC ONLY STAT 12/12/2024 4:57 AM EDT EXTRA URINE HANCOCK TUBE STAT 12/12/2024 4:57 AM EDT URINALYSIS WITH REFLEX MICROSCOPIC AND CULTURE STAT 12/12/2024 4:57 AM EDT URINALYSIS WITH REFLEX MICROSCOPIC AND CULTURE STAT 12/12/2024 4:57 AM EDT URINE CULTURE STAT 12/12/2024 4:57 AM EDT HEMOGLOBIN A1C Routine 11/08/2019 5:55 AM EDT from Last 3 Months or Most Recently Relevant to Health Maintenance Results * CT abdomen pelvis wo IV contrast (02/02/2025 12:17 AM EDT) Only the most recent of4 resultswithin the time period is included. Anatomical Region Laterality Modality Abdominal, Body Computed Tomogra phy 02/02/2025 12:5 7 AM EDT 02/02/2025 12:57 AM EDT Impressions 02/02/2025 12:56 AM EDT There is a 2-3 mm nonobstructing right renal calculus. Additional findings as described above. MACRO: None Signed by: Adriano Lugo 02/02/2025 12:56 AM Dictation workstation: [id number] Narrative 02/02/2025 12:56 AM EDT Interpreted By: Adriano Lugo, STUDY: CT ABDOMEN PELVIS WO IV CONTRAST; 02/02/2025 12:17 am INDICATION: Signs/Symptoms:right sided flank pain, hx stones. COMPARISON: CT scan of the abdomen pelvis 12/30/2024 ACCESSION NUMBER(S): [id number] ORDERING CLINICIAN: FISH CLANCY TECHNIQUE: Axial noncontrast CT images of the abdomen and pelvis with coronal and sagittal reconstructed images. FINDINGS: LOWER CHEST: Bibasilar atelectasis and or scarring. ABDOMEN: Lack of intravenous contrast limits evaluation of vessels and solid organs. LIVER: The dome of the liver is excluded from the field of view limiting evaluation. Visualized liver demonstrates normal morphology and attenuation. BILE DUCTS: Normal caliber. GALLBLADDER: Status post cholecystectomy. PANCREAS: Within normal limits. SPLEEN: Within normal limits. ADRENALS: Within normal limits. KIDNEYS, URETERS, URINARY BLADDER: Kidneys are symmetric in size there is a 2-3 mm nonobstructing calculus in the upper pole of the right kidney. No evidence for left renal or bilateral ureteral calculi, hydronephrosis, hydroureter or perinephric inflammatory changes. No bladder calculi or wall thickening. VESSELS: No aortic aneurysm. RETROPERITONEUM: No pathologically enlarged lymph nodes. PELVIS: REPRODUCTIVE ORGANS: Uterus is surgically absent. No adnexal mass. Calcifications in the pelvis likely relate to phleboliths. BOWEL: No dilated bowel. Note the cecum is noted in the mid upper abdomen similar to prior exam. Normal appendix. PERITONEUM: No ascites or free air, no fluid collection. ABDOMINAL WALL: Within normal limits. BONES: Multilevel degenerative changes of the spine, Procedure Note Adriano Lugo MD - 02/02/2025 Interpreted By: Adriano Lugo, STUDY: CT ABDOMEN PELVIS WO IV CONTRAST; 02/02/2025 12:17 am INDICATION: Signs/Symptoms:right sided flank pain, hx stones. COMPARISON: CT scan of the abdomen pelvis 12/30/2024 ACCESSION NUMBER(S): [id number] ORDERING CLINICIAN: FISH CLANCY TECHNIQUE: Axial noncontrast CT images of the abdomen and pelvis with coronal and sagittal reconstructed images. FINDINGS: LOWER CHEST: Bibasilar atelectasis and or scarring. ABDOMEN: Lack of intravenous contrast limits evaluation of vessels and solid organs. LIVER: The dome of the liver is excluded from the field of view limiting evaluation. Visualized liver demonstrates normal morphology and attenuation. BILE DUCTS: Normal caliber. GALLBLADDER: Status post cholecystectomy. PANCREAS: Within normal limits. SPLEEN: Within normal limits. ADRENALS: Within normal limits. KIDNEYS, URETERS, URINARY BLADDER: Kidneys are symmetric in size there is a 2-3 mm nonobstructing calculus in the upper pole of the right kidney. No evidence for left renal or bilateral ureteral calculi, hydronephrosis, hydroureter or perinephric inflammatory changes. No bladder calculi or wall thickening. VESSELS: No aortic aneurysm. RETROPERITONEUM: No pathologically enlarged lymph nodes. PELVIS: REPRODUCTIVE ORGANS: Uterus is surgically absent. No adnexal mass. Calcifications in the pelvis likely relate to phleboliths. BOWEL: No dilated bowel. Note the cecum is noted in the mid upper abdomen similar to prior exam. Normal appendix. PERITONEUM: No ascites or free air, no fluid collection. ABDOMINAL WALL: Within normal limits. BONES: Multilevel degenerative changes of the spine, IMPRESSION: There is a 2-3 mm nonobstructing right renal calculus. Additional findings as described above. MACRO: None Signed by: Adriano Lugo 02/02/2025 12:56 AM Dictation workstation: [id number] us Fish Clancy PA-C IMG CT PROCEDURES Final Resu lt * CBC and Auto Differential (02/01/2025 11:24 PM EDT) Only the most recent of4 resultswithin the time period is included. WBC 5.7 4.4 - 11.3 x10*3/uL LAB HEMATOLOGY METHOD 02/01/2025 11:29 PM EDT [facility] nRBC 0.0 0.0 - 0.0 /100 WBCs LAB HEMATOLOGY METHOD 02/01/2025 11:29 PM EDT [facility] RBC 5.03 4.00 - 5.20 x10*6/uL LAB HEMATOLOGY METHOD 02/01/2025 11:29 PM EDT [facility] Hemoglobin 14.2 12.0 - 16.0 g/dL LAB HEMATOLOGY METHOD 02/01/2025 11:29 PM EDT [facility] Hematocrit 41.8 36.0 - 46.0 % LAB HEMATOLOGY METHOD 02/01/2025 11:[address] [facility] MCV 83 80 - 100 fL LAB HEMATOLOGY METHOD 02/01/2025 11:[address] [facility] MCH 28.2 26.0 - 34.0 pg LAB HEMATOLOGY METHOD 02/01/2025 11:[address] [facility] MCHC 34.0 32.0 - 36.0 g/dL LAB HEMATOLOGY METHOD 02/01/2025 11:[address] [facility] RDW 13.9 11.5 - 14.5 % LAB HEMATOLOGY METHOD 02/01/2025 11:[address] [facility] Platelets 181 150 - 450 x10*3/uL LAB HEMATOLOGY METHOD 02/01/2025 11:[address] [facility] Neutrophils % 53.5 40.0 - 80.0 % LAB HEMATOLOGY METHOD 02/01/2025 11:[address] [facility] Immature Granulocytes %, Automated 0.2 0.0 - 0.9 % LAB HEMATOLOGY METHOD 02/01/2025 11:[address] [facility] Comment:Immature Granulocyte Count (IG) includes promyelocytes, myelocytes and metamyelocytes but does not include bands. Percent differential counts (%) should be interpreted in the context of the absolute cell counts (cells/UL). Lymphocytes % 32.8 13.0 - 44.0 % LAB HEMATOLOGY METHOD 02/01/2025 11:[address] [facility] Monocytes % 9.1 2.0 - 10.0 % LAB HEMATOLOGY METHOD 02/01/2025 11:[address] [facility] Eosinophils % 3.7 0.0 - 6.0 % LAB HEMATOLOGY METHOD 02/01/2025 11:[address] [facility] Basophils % 0.7 0.0 - 2.0 % LAB HEMATOLOGY METHOD 02/01/2025 11:[address] [facility] Neutrophils Absolute 3.05 1.20 - 7.70 x10*3/uL LAB HEMATOLOGY METHOD 02/01/2025 11:[address] [facility] Comment:Percent differential counts (%) should be interpreted in the context of the absolute cell counts (cells/uL). Immature Granulocytes Absolute, Automated 0.01 0.00 - 0.70 x10*3/uL LAB HEMATOLOGY METHOD 02/01/2025 11:29 PM EDT [facility] Lymphocytes Absolute 1.87 1.20 - 4.80 x10*3/uL LAB HEMATOLOGY METHOD 02/01/2025 11:29 PM EDT [facility] Monocytes Absolute 0.52 0.10 - 1.00 x10*3/uL LAB HEMATOLOGY METHOD 02/01/2025 11:29 PM EDT [facility] Eosinophils Absolute 0.21 0.00 - 0.70 x10*3/uL LAB HEMATOLOGY METHOD 02/01/2025 11:29 PM EDT [facility] Basophils Absolute 0.04 0.00 - 0.10 x10*3/uL LAB HEMATOLOGY METHOD 02/01/2025 11:29 PM EDT [facility] Blood Venous blood specimen / Unknown Venipuncture / Unknown 02/01/2025 11:24 PM EDT 02/01/2025 11:28 PM EDT [employer] PA-C LAB BLOOD ORDERABLES Final R esult Performing Organization Address City/[facility]/ZIP Co de Phone Number [facility] [address] [place] [address] * Magnesium (02/01/2025 11:24 PM EDT) Only the most recent of2 resultswithin the time period is included. Magnesium 1.98 1.60 - 2.40 mg/dL LAB CHEMISTRY METHOD 02/01/2025 11:55 PM EDT [facility] Blood Venous blood specimen / Unknown Venipuncture / Unknown 02/01/2025 11:24 PM EDT 02/01/2025 11:29 PM EDT [employer] PA-C LAB BLOOD ORDERABLES Final R esult [facility] [address] [place] [address] * Lipase (02/01/2025 11:24 PM EDT) Lipase 22 9 - 82 U/L LAB CHEMISTRY METHOD 02/01/2025 11:55 PM EDT [facility] Blood Venous blood specimen / Unknown Venipuncture / Unknown 02/01/2025 11:24 PM EDT 02/01/2025 11:29 PM EDT [facility] - 02/01/2025 11:55 PM EDT Venipuncture immediately after or during the administration of Metamizole may lead to falsely low results. Testing should be performed immediately prior to Metamizole dosing. [employer] LAB BLOOD ORDERABLES Final R WISETIVIult Performing Organization Address [facility] Co de Phone Number [facility] [address] [place] [address] * Lactate (02/01/2025 11:24 PM EDT) Only the most recent of2 resultswithin the time period is included. [facility] Lactate 1.8 0.4 - 2.0 mmol/L LAB CHEMISTRY METHOD 02/01/2025 11:56 PM EDT [facility] Blood Venous blood specimen / Unknown Venipuncture / Unknown 02/01/2025 11:24 PM EDT 02/01/2025 11:29 PM EDT Narrative [facility] - 02/01/2025 11:56 PM EDT Venipuncture immediately after or during the administration of Metamizole may lead to falsely low results. Testing should be performed immediately prior to Metamizole dosing. [employer] LAB BLOOD ORDERABLES Final R WISETIVIult Performing Organization Address City/[facility]/ZIP Co de Phone Number [facility] [address] [place] [address] * (ABNORMAL) Comprehensive metabolic panel (02/01/2025 11:24 PM EDT) Only the most recent of4 resultswithin the time period is included. Glucose 378(H) 74 - 99 mg/dL LAB CHEMISTRY METHOD 02/01/2025 11:[address] [facility] Sodium 139 136 - 145 mmol/L LAB CHEMISTRY METHOD 02/01/2025 11:[address] [facility] Potassium 3.7 3.5 - 5.3 mmol/L LAB CHEMISTRY METHOD 02/01/2025 11:[address] [facility] Chloride 101 98 - 107 mmol/L LAB CHEMISTRY METHOD 02/01/2025 11:[address] [facility] Bicarbonate 29 21 - 32 mmol/L LAB CHEMISTRY METHOD 02/01/2025 11:[address] [facility] Anion Gap 13 10 - 20 mmol/L LAB CHEMISTRY METHOD 02/01/2025 11:[address] [facility] Urea Nitrogen 7 6 - 23 mg/dL LAB CHEMISTRY METHOD 02/01/2025 11:[address] [facility] Creatinine 0.78 0.50 - 1.05 mg/dL LAB CHEMISTRY METHOD 02/01/2025 11:[address] [facility] eGFR >90 >60 mL/min/1. 73m*2 LAB CHEMISTRY METHOD 02/01/2025 11:[address] [facility] Comment: Calculations of estimated GFR are performed using the 2020 CKD-EPI Study Refit equation without the race variable for the IDMS-Traceable creatinine methods. https://jasn.asnjournals.org/content//ASN.2066935299 Calcium 9.6 8.6 - 10.3 mg/dL LAB CHEMISTRY METHOD 02/01/2025 11:[address] [facility] Albumin 4.5 3.4 - 5.0 g/dL LAB CHEMISTRY METHOD 02/01/2025 11:[address] [facility] Alkaline Phosphatase 72 33 - 110 U/L LAB CHEMISTRY METHOD 02/01/2025 11:[address] [facility] Total Protein 7.9 6.4 - 8.2 g/dL LAB CHEMISTRY METHOD 02/01/2025 11:[address] [facility] AST 14 9 - 39 U/L LAB CHEMISTRY METHOD 02/01/2025 11:55 PM EDT [facility] Bilirubin, Total 0.4 0.0 - 1.2 mg/dL LAB CHEMISTRY METHOD 02/01/2025 11:55 PM EDT [facility] ALT 16 7 - 45 U/L LAB CHEMISTRY METHOD 02/01/2025 11:55 PM EDT [facility] Comment:Patients treated wit h Sulfasalazine may generate falsely decreased results for ALT. Blood Venous blood specimen / Unknown Venipuncture / Unknown 02/01/2025 11:24 PM EDT 02/01/2025 11:29 PM EDT Fish Clancy PA-C LAB BLOOD ORDERABLES Final R esult Performing Organization Address City/[facility]/ZIP Co de Phone Number [facility] [address] [place] [address] * Extra Urine [place] Tube (02/01/2025 11:05 PM EDT) Only the most recent of4 resultswithin the time period is included. Extra Tube 02/02/2025 9:02 AM EDT [facility] Urine Urine specimen / Unknown 02/01/2025 11:05 PM EDT 02/01/2025 11:17 PM EDT Grey Putnam DO LAB URINE ORDERABLES Final Re sult Performing Organization Address City/[facility]/ZIP Co de Phone Number [facility] [address] [place] [address] * (ABNORMAL) Microscopic Only, Urine (02/01/2025 11:05 PM EDT) Only the most recent of4 resultswithin the time period is included. WBC, Urine 21-50(A) 1-5, NONE /HPF 02/01/2025 11:27 PM EDT [facility] RBC, Urine >20(A) NONE, 1-2, 3-5 /HPF 02/01/2025 11:27 PM EDT [facility] Squamous Epithelial Cells, Urine 10-25 (FEW) Reference range not established. /HPF 02/01/2025 11:27 PM T [facility] Urine Urine specimen / Unknown 02/01/2025 11:05 PM EDT 02/01/2025 11:17 PM EDT us Grey Putnam DO LAB URINE ORDERABLES Final Re sult [facility] [address] [place] [address] * (ABNORMAL) Urinalysis with Reflex Culture and Microscopic (02/01/2025 11:05 PM EDT) Only the most recent of4 resultswithin the time period is included. Color, Urine Colorless(N ) Light-Yello w, Yellow, Dark-Yellow 02/01/2025 11:[address] [facility] Appearance, Urine Turbid(N) Clear 02/01/2025 11:[address] [facility] Specific [place], Urine 1.010 1.005 - 1.035 LAB URINALYSIS - AUTOMATED METHOD 02/01/2025 11:[address] [facility] pH, Urine 7.0 5.0, 5.5, 6.0, 6.5, 7.0, 7.5, 8.0 02/01/2025 11:[address] [facility] Protein, Urine NEGATIVE NEGATIVE, 10 (TRACE), 20 (TRACE) mg/dL 02/01/2025 11:[address] [facility] Glucose, Urine OVER (4+)(A) Normal mg/dL 02/01/2025 11:[address] [facility] Blood, Urine OVER (3+)(A) NEGATIVE mg/dL 02/01/2025 11:[address] [facility] Ketones, Urine NEGATIVE NEGATIVE mg/dL 02/01/2025 11:[address] [facility] Bilirubin, Urine NEGATIVE NEGATIVE mg/dL 02/01/2025 11:[address] [facility] Urobilinogen, Urine Normal Normal mg/dL 02/01/2025 11:27 PM EDT [facility] Nitrite, Urine NEGATIVE NEGATIVE 02/01/2025 11:27 PM EDT [facility] Leukocyte Esterase, Urine 500 Matthew/uL(A) NEGATIVE 02/01/2025 11:27 PM EDT [facility] Urine Urine specimen / Unknown 02/01/2025 11:05 PM EDT 02/01/2025 11:17 PM EDT Narrative [facility] - 02/01/2025 11:27 PM EDT OVER is reported when the result is greater than the clinically reportable range. Grey Putnam DO LAB URINE ORDERABLES Final Re sult [facility] [address] [place] [address] * (ABNORMAL) Urine Culture (02/01/2025 11:05 PM EDT) Only the most recent of4 resultswithin the time period is included. Urine Culture Growth indicates contamination with Gram positive dianna. Repeat culture if clinically indicated. 02/03/2025 8:25 AM EDT [facility] Urine Culture <=10,000 CFU/mL Streptococcus agalactiae (Group B Streptococcus)(A ) MICROSCAN 02/03/2025 8:25 AM EDT [facility] Comment: Streptococcus agalactiae (Group B Streptococcus, GBS) may be significant in individuals. Recovery from non- individuals likely represents an insignificant finding. Routine GBS screening should be ordered using test G roup B Streptococcus (GBS) Screen, Culture ([id number]). Urine Urine specimen / Unknown 02/01/2025 11:05 PM EDT 02/01/2025 11:27 PM EDT Narrative [facility] - 02/03/2025 8:25 AM EDT Streptococcus agalactiae (Group B Streptococcus) is universally susceptible to beta-lactam antibiotics and vancomycin. Routine susceptibility testing not performed. For penicillin allergic patients, please contact the laboratory within 5 days of collection at to request susceptibility testing. us Grey Putnam DO LAB MICROBIOLOGY - GENERAL OR DERABLES Final Result Performing Organization Address City/[facility]/ZIP Co de Phone Number [facility] [address] [phone] * ECG 12 lead (12/31/2024 4:15 PM EDT) Only the most recent of2 resultswithin the time period is included. Ventricular Rate 126 BPM MUSE Atrial Rate 126 BPM MUSE MS Interval 124 ms MUSE QRS Duration 88 ms MUSE QT Interval 332 ms MUSE QTC Calculation(Baze tt) 480 ms MUSE P [place] 56 degrees MUSE R [place] -8 degrees MUSE T [place] 58 degrees MUSE QRS Count 20 beats MUSE Q Onset 212 ms MUSE P Onset 150 ms MUSE P Offset 203 ms MUSE T Offset 378 ms MUSE QTC [place] 425 ms MUSE 12/30/2024 2:14 AM EDT 01/23/2025 3:32 PM EDT Narrative MUSE - 01/23/2025 3:32 PM EDT Sinus tachycardia with Premature atrial complexes Cannot rule out Anterior infarct (cited on or before 29-DEC-2024) Abnormal ECG When compared with ECG of 29-DEC-2024 23:43, (unconfirmed) Premature atrial complexes are now Present See ED provider note for full interpretation and clinical correlation Confirmed by Kyle Monzon ([id number]) on 01/23/2025 3:32:12 PM Procedure Note Kyle Monzon APRN-JOLYNN - 01/23/2025 Sinus tachycardia with Premature atrial complexes Cannot rule out Anterior infarct (cited on or before 29-DEC-2024) Abnormal ECG When compared with ECG of 29-DEC-2024 23:43, (unconfirmed) Premature atrial complexes are now Present See ED provider note for full interpretation and clinical correlation Confirmed by Kyle Monzon ([id number]) on 01/23/2025 3:32:12 PM us Gely Silverio MD ECG ORDERABLES Final Resu lt MUSE * CT angio chest for pulmonary embolism (12/30/2024 3:15 AM EDT) Anatomical Region Laterality Modality Thoracic, Chest Computed Tomogra phy 12/30/2024 4:22 AM EDT 12/30/2024 4:22 AM EDT Impressions 12/30/2024 4:21 AM EDT No evidence of acute pulmonary embolism. 3 mm nonobstructive right renal calculus. No hydronephrosis. Postsurgical change of prior cholecystectomy. No evidence of bowel obstruction or acute appendicitis. MACRO: None Signed by: Kory Melendez 12/30/2024 4:21 AM Dictation workstation: [id number] Narrative 12/30/2024 4:21 AM EDT Interpreted By: Kory Melendez, STUDY: CT ANGIO CHEST FOR PULMONARY EMBOLISM; CT ABDOMEN PELVIS WO IV CONTRAST; 12/30/2024 3:15 am INDICATION: Signs/Symptoms:Right flank pain, chest pain, elevated D-dimer, tachycardia; Signs/Symptoms:History of kidney stones, right flank pain, tachycardia, vomiting. COMPARISON: None. ACCESSION NUMBER(S): [id number]; [id number] ORDERING CLINICIAN: GELY SILVERIO TECHNIQUE: Contiguous axial images of the chest were obtained after the intravenous administration of contrast. Contiguous axial images of the abdomen pelvis were obtained without intravenous contrast. Coronal and sagittal reformatted images were obtained from the axial images. MIPS of the chest were also performed and reviewed. FINDINGS: CT CHEST: No axillary, mediastinal, or hilar lymphadenopathy. The heart is normal in size. No significant pericardial effusion. No evidence of acute central, main, lobar, or proximal segmental pulmonary embolism. Mild bilateral subsegmental atelectasis. No significant pleural effusion. No pneumothorax. Multilevel degenerative change of the thoracic spine. CT ABDOMEN AND PELVIS: Evaluation of the abdominal viscera is limited secondary to lack of intravenous contrast. Limited evaluation for liver mass on noncontrast examination. The gallbladder is surgically absent. The pancreas, spleen, and adrenal glands appear unremarkable. 3 mm nonobstructive right renal calculus. No hydronephrosis. Evaluation of the kidneys is otherwise limited secondary lack of intravenous contrast. No evidence of bowel obstruction or acute appendicitis. Urinary bladder is underdistended and not well evaluated. The uterus is surgically absent. Limited evaluation of the adnexa. No significant free abdominal or pelvic fluid. Multilevel degenerative change of the lumbar spine. Procedure Note Kory Melendez MD - 12/30/2024 Interpreted By: Kory Melendez, STUDY: CT ANGIO CHEST FOR PULMONARY EMBOLISM; CT ABDOMEN PELVIS WO IV CONTRAST; 12/30/2024 3:15 am INDICATION: Signs/Symptoms:Right flank pain, chest pain, elevated D-dimer, tachycardia; Signs/Symptoms:History of kidney stones, right flank pain, tachycardia, vomiting. COMPARISON: None. ACCESSION NUMBER(S): [id number]; [id number] ORDERING CLINICIAN: GELY SILVERIO TECHNIQUE: Contiguous axial images of the chest were obtained after the intravenous administration of contrast. Contiguous axial images of the abdomen pelvis were obtained without intravenous contrast. Coronal and sagittal reformatted images were obtained from the axial images. MIPS of the chest were also performed and reviewed. FINDINGS: CT CHEST: No axillary, mediastinal, or hilar lymphadenopathy. The heart is normal in size. No significant pericardial effusion. No evidence of acute central, main, lobar, or proximal segmental pulmonary embolism. Mild bilateral subsegmental atelectasis. No significant pleural effusion. No pneumothorax. Multilevel degenerative change of the thoracic spine. CT ABDOMEN AND PELVIS: Evaluation of the abdominal viscera is limited secondary to lack of intravenous contrast. Limited evaluation for liver mass on noncontrast examination. The gallbladder is surgically absent. The pancreas, spleen, and adrenal glands appear unremarkable. 3 mm nonobstructive right renal calculus. No hydronephrosis. Evaluation of the kidneys is otherwise limited secondary lack of intravenous contrast. No evidence of bowel obstruction or acute appendicitis. Urinary bladder is underdistended and not well evaluated. The uterus is surgically absent. Limited evaluation of the adnexa. No significant free abdominal or pelvic fluid. Multilevel degenerative change of the lumbar spine. IMPRESSION: No evidence of acute pulmonary embolism. 3 mm nonobstructive right renal calculus. No hydronephrosis. Postsurgical change of prior cholecystectomy. No evidence of bowel obstruction or acute appendicitis. MACRO: None Signed by: Kory Melendez 12/30/2024 4:21 AM Dictation workstation: [id number] us Gely Silverio MD IMG CT PROCEDURES Final Re sult * (ABNORMAL) POCT GLUCOSE (12/30/2024 2:47 AM EDT) POCT Glucose 410(H) 74 - 99 mg/dL 12/30/2024 2:49 AM EDT [facility] Blood Capillary blood specimen / Unknown 12/30/2024 2:47 AM EDT 12/30/2024 2:49 AM EDT Gely Silverio MD LAB POINT OF CARE TEST DOCKED DEVICE UNSOLICITED RESULTS Final Result [facility] [address] [place] [address] * XR chest 1 view (12/30/2024 2:28 AM EDT) Anatomical Region Laterality Modality Thoracic, Chest Computed Radiogr aphy 12/30/2024 2:34 AM EDT 12/30/2024 2:34 AM EDT Impressions 12/30/2024 3:01 AM EDT No acute cardiopulmonary abnormality. Signed by Felix Zamarripa MD Narrative 12/30/2024 3:01 AM EDT STUDY: Chest Radiograph; 12/30/2024 2:28 AM INDICATION: Chest pain. COMPARISON: XR chest 08/07/2020. ACCESSION NUMBER(S): [id number] ORDERING CLINICIAN: GELY SILVERIO TECHNIQUE: Frontal chest was obtained at 02:28 hours. FINDINGS: CARDIOMEDIASTINAL SILHOUETTE: Cardiomediastinal silhouette is normal in size and configuration. LUNGS: Lungs are clear. ABDOMEN: No remarkable upper abdominal findings. BONES: No acute osseous changes. Procedure Note Felix Zamarripa MD - 12/30/2024 STUDY: Chest Radiograph; 12/30/2024 2:28 AM INDICATION: Chest pain. COMPARISON: XR chest 08/07/2020. ACCESSION NUMBER(S): [id number] ORDERING CLINICIAN: GELY SILVERIO TECHNIQUE: Frontal chest was obtained at 02:28 hours. FINDINGS: CARDIOMEDIASTINAL SILHOUETTE: Cardiomediastinal silhouette is normal in size and configuration. LUNGS: Lungs are clear. ABDOMEN: No remarkable upper abdominal findings. BONES: No acute osseous changes. IMPRESSION: No acute cardiopulmonary abnormality. Signed by Felix Zamarripa MD Gely Silverio MD IMG XR PROCEDURES Final Re sult * Troponin, High Sensitivity, 1 Hour (12/30/2024 2:21 AM EDT) Troponin I, High Sensitivity <3 0 - 13 ng/L LAB IMMUNOASSAY METHOD 12/30/2024 2:48 AM EDT [facility] Blood Venous blood specimen / Unknown Venipuncture / Unknown 12/30/2024 2:21 AM EDT 12/30/2024 2:23 AM EDT [facility] - 12/30/2024 2:48 AM EDT Less than 99th percentile of normal range cutoff- Female and children under 18 years old <14 ng/L; Male <21 ng/L: Negative Repeat testing should be performed if clinically indicated. Female and children under 18 years old 14-50 ng/L; Male 21-50 ng/L: Consistent with possible cardiac damage and possible increased clinical risk. Serial measurements may help to assess extent of myocardial damage. >50 ng/L: Consistent with cardiac damage, increased clinical risk and myocardial infarction. Serial measurements may help assess extent of myocardial damage. NOTE: Children less than 1 year old may have higher baseline troponin levels and results should be interpreted in conjunction with the overall clinical context. NOTE: Troponin I testing is performed using a different testing methodology at [facility] than at other [facility]. Direct result comparisons should only be made within the same method. us Gely Silverio MD LAB BLOOD ORDERABLES Final Result [facility] [address] [place] [address] * Troponin I, High Sensitivity, Initial (12/30/2024 1:34 AM EDT) Troponin I, High Sensitivity 3 0 - 13 ng/L LAB IMMUNOASSAY METHOD 12/30/2024 2:06 AM EDT [facility] Blood Venous blood specimen / Unknown Venipuncture / Unknown 12/30/2024 1:34 AM EDT 12/30/2024 1:37 AM EDT [facility] - 12/30/2024 2:06 AM EDT Less than 99th percentile of normal range cutoff- Female and children under 18 years old <14 ng/L; Male <21 ng/L: Negative Repeat testing should be performed if clinically indicated. Female and children under 18 years old 14-50 ng/L; Male 21-50 ng/L: Consistent with possible cardiac damage and possible increased clinical risk. Serial measurements may help to assess extent of myocardial damage. >50 ng/L: Consistent with cardiac damage, increased clinical risk and myocardial infarction. Serial measurements may help assess extent of myocardial damage. NOTE: Children less than 1 year old may have higher baseline troponin levels and results should be interpreted in conjunction with the overall clinical context. NOTE: Troponin I testing is performed using a different testing methodology at [facility] than at other [facility]. Direct result comparisons should only be made within the same method. us Gely Silverio MD LAB BLOOD ORDERABLES Final Result [facility] [address] [place] [address] * (ABNORMAL) D-Dimer, VTE Exclusion (12/30/2024 1:34 AM EDT) [facility] D-Dimer, Quantitative VTE Exclusion 604(H) <=500 ng/mL FEU LAB COAGULATION METHOD 12/30/2024 1:52 AM EDT [facility] Blood Venous blood specimen / Unknown Venipuncture / Unknown 12/30/2024 1:34 AM EDT 12/30/2024 1:37 AM EDT [facility] - 12/30/2024 1:52 AM EDT The VTE Exclusion D-Dimer assay is reported in ng/mL Fibrinogen Equivalent Units (FEU). Per blanker operator's instructions for use, a value of less than 500 ng/mL (FEU) may help to exclude DVT or PE in outpatients when the assay is used with a clinical pretest probability assessment.([facility] must utilize and document eCalc 'Wells Score Deep Vein Thrombosis Risk' for DVT exclusion only. Emergency Department should utilize Guidelines for Emergency Department Use of the VTE Exclusion D-Dimer and Clinical Pretest probability assessment model for DVT or PE exclusion.) Gely Silverio MD LAB BLOOD ORDERABLES Final Result [facility] [address] [place] [address] from Last [address] [place], [place] [address] Care Teams Hot Knife [employer] Relationship Specialty Start Date End Date Skye Jones, PEE-JOLYNN [address] [place] [address] PCP - General 11/28/21
--- NOTE | 2025-03-04 09:43 | CT_ITS ---
The [address] [address] Patient Name: GISEL PAT MRN: [id number] date: 1975 Sex: F Assigned Patient Location: ER Current Patient Location: ER Accession/Order Number: [id number] Exam Date: 03/04/2025 09:55 Report Date: 03/04/2025 10:26 At the request of: YUSEF ZHANG DO Procedure: CT abdomen pelvis wo con CT ABDOMEN AND PELVIS WITHOUT INTRAVENOUS CONTRAST: CLINICAL HISTORY: r flank pain, r/o kidney stones COMPARISON: None TECHNIQUE: Spiral images were obtained through the abdomen and pelvis without intravenous contrast. This CT exam was performed using one or more following dose reduction techniques: Automated exposure control, adjustment of the mA and/or kV according to patient size, or use of iterative reconstruction technique. FINDINGS: Lung Bases: [Bibasilar scarring.] Organs:The dome of the liver is excluded from today's study. Suboptimal evaluation due to lack of IV contrast. Visualized liver pancreas spleen and adrenal glands appear unremarkable. Gallbladder has been removed. Left kidney appears unremarkable. A punctate stone is noted involving the right kidney. No obstructive uropathy. Aorta appears normal in caliber.[ GI: Stomach is grossly unremarkable. Small bowel appears nondilated. No acute colonic abnormality is seen.[ Pelvis:[Urinary bladder is grossly unremarkable. Uterus has been removed. No adnexal mass.] Peritoneum/Retroperitoneum:No free air or free fluid or lymphadenopathy.[ Abd wall/Bones:Abdominal wall demonstrates no acute findings. Osseous structures demonstrate degenerative change.[ CT/CT abdomen pelvis wo con IMPRESSION: Punctate right nephrolithiasis. No obstructive uropathy. Impression dictated by: Tunde Martinez Jr., D.O. 03/04/2025 10:26 AM Dictation Location: [facility] Electronically authenticated by: [id number] Y Date: 03/04/2025 10:26
--- NOTE | 2025-03-04 09:52 | ED.GENADUL1 ---
HPI HPI - General Adult General Chief complaint: Abdominal Pain Stated complaint: DIZZINESS, FLANK PAIN Time Seen by Provider: 03/04/25 09:35 Source: patient Mode of arrival: Wheelchair Limitations: no limitations History of Present Illness HPI narrative: Patient is a 49-year-old female presenting to the emergency department for evaluation of right flank pain. Patient states that her pain began last night while at work, and persisted throughout the night. She states that she feels dizzy and nauseous. She states she is concerned she has a kidney stone. She states she has a history of kidney stones. Her last hospitalization was 3 weeks. She states she had a septic stone that was 3 mm. She states she had no procedures to remove the stone as it was too small. She states she noted some blood in her urine over the last 24 hours as well. She denies any constipation or diarrhea. No significant abdominal abdominal pain. Denies being . No chest pain or shortness of breath. No fevers or chills. Related Data Home Medications ?Medication ?Instructions ?Recorded ?Confirmed gabapentin 600 mg tablet 600 mg PO Q8H 12/30/22 03/04/25 metoprolol tartrate 25 mg tablet 50 mg PO Q12H 12/30/22 03/04/25 tizanidine 4 mg tablet 4 mg PO Q8H PRN spasms 12/30/22 03/04/25 trazodone 100 mg tablet 200 mg PO BEDTIME 12/30/22 11/14/24 olanzapine 5 mg tablet 5 mg PO BID 01/17/23 03/04/25 duloxetine 60 mg capsule,delayed 60 mg PO DAILY 07/19/23 03/04/25 release (Cymbalta) insulin glargine 100 unit/mL (3 40 unit subcut QPM 07/21/23 03/04/25 mL) subcutaneous pen (Lantus Solostar U-100 Insulin) meclizine 25 mg tablet 25 mg PO TID PRN dizziness 07/21/23 03/04/25 hydroxyzine pamoate 50 mg capsule 50 mg PO TID PRN anxiety 08/13/23 03/04/25 loratadine 10 mg tablet (Allergy 10 mg PO DAILY 03/24/24 03/04/25 Relief (loratadine)) naloxone 4 mg/actuation nasal spray 1 spray intranasal Q3M PRN opioid 03/24/24 08/07/24 overdose cholecalciferol (vitamin D3) 25 25 mcg PO QWEEK 08/07/24 03/04/25 mcg (1,000 unit) tablet colesevelam 625 mg tablet 625 mg PO BID 08/07/24 03/04/25 empagliflozin 25 mg tablet 25 mg PO DAILY 08/07/24 03/04/25 (Jardiance) lidocaine 5 % topical patch 1 patch topical .Q12HRs 08/07/24 11/14/24 oxycodone-acetaminophen 5 mg-325 1 tab PO QPM PRN pain 08/07/24 11/14/24 mg tablet promethazine 25 mg tablet 25 mg PO Q6H PRN nausea and 08/07/24 11/14/24 vomiting rosuvastatin 40 mg tablet 40 mg PO DAILY 08/07/24 03/04/25 tirzepatide 7.5 mg/0.5 mL 7.5 mg subcut QWEEK 08/07/24 03/04/25 subcutaneous pen injector (Marilee) blood-glucose sensor (FreeStyle 11/14/24 11/14/24 Myron 3 Sensor device) ondansetron HCl 4 mg tablet mg 11/14/24 pantoprazole 40 mg tablet,delayed 40 mg PO DAILY 11/14/24 03/04/25 release trazodone 300 mg tablet 300 mg PO BEDTIME 11/14/24 03/04/25 aripiprazole 20 mg tablet 20 mg PO DAILY 03/04/25 03/04/25 Allergies Allergy/AdvReac Type Severity Reaction Status Date / Time melon Allergy Severe Anaphylaxis Verified 03/04/25 09:30 fentanyl Allergy Unknown Unknown Verified 03/04/25 09:30 ketorolac (From Toradol) Allergy Unknown Unknown Verified 03/04/25 09:30 meperidine (From Demerol) Allergy Unknown Unknown Verified 03/04/25 09:30 morphine Allergy Unknown Unknown Verified 03/04/25 09:30 nalbuphine (From Nubain) Allergy Unknown Unknown Verified 03/04/25 09:30 Penicillins Allergy Unknown Unknown Verified 03/04/25 09:30 aspirin AdvReac Unknown NOSE BLEEDS Verified 03/04/25 09:30 Opioid HPI Opioid Management Most Recent Opioid Data: Last Pain Scale 8 Today, 09:44 Last ORT Total Score 3 03/28/24, 21:04 Last ORT Risk Category Low Risk 03/28/24, 21:04 Ur Phencyclidine Scrn, (NEGATIVE) Negative 07/21/23, 18:35 Review of Systems ROS Status of ROS 10 or more systems reviewed and unremarkable except as noted in history and below [facility] Medical History (Updated 03/04/25 @ 11:51 by Phillip Peres DO) Syncope ?R55 - Syncope and collapse (ICD-10) Headache ?R51.9 - Headache, unspecified (ICD-10) Obesity ?E66.9 - Obesity, unspecified (ICD-10) HLD (hyperlipidemia) ?E78.5 - Hyperlipidemia, unspecified (ICD-10) Migraine headache ?G43.909 - Migraine, unspecified, not intractable, without status migrainosus (ICD-10) Depression with anxiety ?F41.8 - Other specified anxiety disorders (ICD-10) UTI (urinary tract infection) ?N39.0 - Urinary tract infection, site not specified (ICD-10) Kidney calculi ?N20.0 - Calculus of kidney (ICD-10) GERD (gastroesophageal reflux disease) ?K21.9 - Gastro-esophageal reflux disease without esophagitis (ICD-10) Diabetes ?E11.9 - Type 2 diabetes mellitus without complications (ICD-10) Surgical History (Updated 03/28/24 @ 21:25 by Minerva Merchant) History of cholecystectomy ?Z90.49 - Acquired absence of other specified parts of digestive tract (ICD-10) H/O oophorectomy H/O: hysterectomy ?Z90.710 - Acquired absence of both cervix and uterus (ICD-10) Family History (Updated 03/28/24 @ 21:26 by Minerva Merchant) Mother Family history of hypertension Social History (Updated 03/28/24 @ 21:27 by Minerva Merchant) Within the past year, how often did you have a drink containing alcohol: never Score interpretation: A score less than 3 is consistent with normal alcohol consumption. 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 Highest level of school completed/degree received: some college, no degree Are you now , , , , never or living with a partner: In a typical week, how many times do you talk on the telephone with family, friends, or neighbors: 3 or more times per week How often do you get together with friends or relatives: 3 or more times per week How often do you attend nondenominational or adventism services: 4 or more times per year Little interest or pleasure in doing things: not at all Feeling down, depressed, or hopeless: not at all Feel stressed/tense/nervous/anxious/difficulty sleeping: only a little Do you think of yourself as: straight/heterosexual Gender Identity: female Exam Narrative Exam Narrative: CONSTITUTIONAL: Patient appears uncomfortable and ill, but in no acute distress, she is answering questions and following commands appropriately. SKIN: Was warm and dry. EYES: No scleral icterus. EARS, NOSE, THROAT: Moist oral mucosa. RESPIRATORY: Clear to auscultation bilaterally, no wheezes, crackles, or stridor, no use of accessory muscles CARDIOVASCULAR: Normal rate and regular rhythm. There is no S3, S4, murmur, rub. GASTROINTESTINAL: Abdomen soft, nontender and nondistended. There is no rebound tenderness or guarding. No right lower quadrant tenderness. Positive CVA tenderness on the right. MUSCULOSKELETAL: No peripheral edema. NEUROLOGIC: Patient is awake and alert. Facies were symmetrical. Constitutional Vital Signs, click to edit/add: Last Vital Signs Temp 98.3 F 03/04/25 09:30 Pulse 101 H 03/04/25 09:30 Resp 16 03/04/25 09:30 BP 115/81 03/04/25 09:30 Pulse Ox 97 03/04/25 09:30 O2 Del Method Room Air 03/04/25 09:30 Course Vital Signs Vital signs: Vital Signs Temperature 98.3 F 03/04/25 09:30 Pulse Rate 101 H 03/04/25 09:30 Respiratory Rate 16 03/04/25 09:30 Blood Pressure 115/81 03/04/25 09:30 Pulse Oximetry 97 03/04/25 09:30 Oxygen Delivery Method Room Air 03/04/25 09:30 Temperature 98.3 F 03/04/25 09:30 Pulse Rate 101 H 03/04/25 09:30 Respiratory Rate 16 03/04/25 09:30 Blood Pressure 115/81 03/04/25 09:30 Pulse Oximetry 97 03/04/25 09:30 Oxygen Delivery Method Room Air 03/04/25 09:30 Medical Decision Making [facility] Narrative Medical decision making narrative: Patient is a 49-year-old female, history significant for nephrolithiasis, presenting to the emergency department with complaints of right flank pain and nausea that began throughout the night last night while at work. Of note, she states she is a history of septic stone which she was hospitalized for just 3 weeks ago. Her vital signs arrival today were significant for borderline tachycardia, otherwise were within normal limits. She is afebrile and hemodynamically stable. Examination was notable for right CVA tenderness. She generally feels ill and uncomfortable. She has no abdominal tenderness. Differential diagnosis includes nephrolithiasis, UTI, pyelonephritis. Given that she has no abdominal tenderness, vomiting, or diarrhea; I have lower concern for intra-abdominal pathology such as colitis or diverticulitis. Patient's exam is not consistent with surgical etiologies of abdominal pain such as appendicitis or perforated viscus. An IV was established and laboratory studies were obtained patient is a underlying metabolic/electrolyte derangement. She was given 1 L bolus normal saline and IM Dilaudid/oral Zofran for symptomatic treatment. CT abdomen/pelvis independently reviewed and interpreted by myself and radiology demonstrated punctate right-sided nephrolithiasis without obstructing stone. Laboratory studies were significant for hyperglycemia with a blood sugar of 672. CO2/anion gap are normal, she is not currently in DKA. Potassium is. Pseudohyponatremia which is within normal limits when adjusted for hyperglycemia. No other electrolyte or metabolic derangements. No transaminitis or hyperbilirubinemia. Urinalysis is negative for infection, positive for glucosuria. Patient's presentation seems to be consistent with generalized fatigue and dehydration secondary to hyperglycemia/uncontrolled type 2 diabetes. Patient states she takes insulin, but did not take her dose last night. She was given 10 units subcutaneous NovoLog for treatment. In regards to the right flank pain, this has resolved. Her UA and CT were unremarkable, ruling out obstructing stone or pyelonephritis. I do believe the patient is stable for discharge at this time. She is tolerating p.o. rehydration at the time of discharge. They were instructed to follow up with their PCP for further diabetic management. Return precautions were given including any new or worsening symptoms. She is tolerating p.o. rehydration at the time of discharge. Patient understands and agrees to the plan. FINAL IMPRESSION: #Acute generalized fatigue and malaise #Acute nonketotic hyperglycemia #Acute right flank pain, resolved #History of insulin dependent type II diabetes DISPOSITION: Discharged home CONDITION: Good Medical Records Medical records reviewed: Yes I reviewed the patient's medical records Lab Data Lab results reviewed: Yes I reviewed the patient's lab results Labs: Lab Results 03/04/25 03/04/25 Range/Units 10:55 11:10 WBC 5.1 (4.0-11.0) 10^3/uL RBC 4.74 (4.20-5.40) 10^6/uL Hgb 13.6 (12.0-16.0) g/dL Hct 39.4 (36.0-48.0) % MCV 83.1 (81.0-99.0) fL MCH 28.7 (26.7-34.0) pg MCHC 34.5 (29.9-35.2) g/dL RDW 13.3 (11.0-15.0) % Plt Count 181 (150-450) 10^3/uL MPV 9.7 (9.5-13.5) fL Neut % (Auto) 49.7 (43.0-75.0) % Lymph % (Auto) 35.2 (20.5-60.0) % [place] % (Auto) 10.9 (1.7-12.0) % Eos % (Auto) 2.8 (0.9-7.0) % Baso % (Auto) 1.2 (0.2-2.0) % Neut # (Auto) 2.5 (1.4-6.5) 10^3/uL Lymph # (Auto) 1.8 (1.2-3.8) 10^3/uL [place] # (Auto) 0.6 (0.3-0.8) 10^3/uL Eos # (Auto) 0.1 (0.0-0.7) 10^3/uL Baso # (Auto) 0.1 (0.0-0.1) 10^3/uL Abs Immat Gran (auto) 0.01 (0.00-0.03) 10^3/uL Imm/Tot Granulo (auto) 0.2 (0.0-0.5) % Sodium 132 L (136-145) mmol/L Potassium 4.2 (3.5-5.1) mmol/L Chloride 94 L (98-107) mmol/L Carbon Dioxide 27.9 (21.0-32.0) mmol/L Anion Gap 14.3 BUN 10.0 (7.0-18.0) mg/dL Creatinine 0.93 (0.55-1.02) mg/dL Est GFR ( Amer) >60 (>=60 mL/min/1.73m^2) Est GFR (Non-Af Amer) >60 (>=60 mL/min/1.73m^2) BUN/Creatinine Ratio 10.8 Glucose 676 H* (74-106) mg/dL Calcium 9.6 (8.5-10.1) mg/dL Total Bilirubin 0.5 (0.2-1.0) mg/dL AST 13 L (15-37) U/L ALT 28 (14-59) U/L Alkaline Phosphatase 85 (46-116) U/L Total Protein 8.0 (6.4-8.2) g/dL Albumin 3.8 (3.4-5.0) g/dL Globulin 4.2 g/dL Albumin/Globulin Ratio 0.9 Urine Color Lt. yellow (YELLOW) Urine Clarity Clear (CLEAR) Urine pH 6.0 (5.0-9.0) Ur Specific [place] <=1.005 A (1.005-1.025) Urine Protein Negative (NEG/TRACE) mg/dL Urine Glucose (UA) >=1000 A (NEGATIVE) mg/dL Urine Ketones Negative (NEGATIVE) mg/dL Urine Occult Blood Large A (NEGATIVE) Urine Nitrite Negative (NEGATIVE) Urine Bilirubin Negative (NEGATIVE) Urine Urobilinogen 0.2 (0.2-1.0) EU/dL Ur Leukocyte Esterase Negative (NEGATIVE) Urine RBC 75-100 A (0-2) #/HPF Urine WBC None seen (NONE SEEN) #/HPF Ur Squamous Epith Cells Moderate A (NONE/RARE) #/LPF Urine Crystals None seen (None Seen) #/HPF Urine Bacteria Trace A (NONE SEEN) #/HPF Urine Casts None seen (NONE SEEN) #/LPF Urine Mucus None seen (NONE SEEN) Ur Culture Indicated? No Imaging Data CT scan - abdomen: Attestation: I personally reviewed and interpreted this imaging study as follows: Radiologist's impression: ITS Impressions Abdomen/Pelvis CT 03/04/25 09:43 IMPRESSION: Punctate right nephrolithiasis. No obstructive uropathy. Impression dictated by: Tunde Martinez Jr., D.O. 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: with ad terminal makeup operator use Qualified Code(s): E11.65 - Type 2 diabetes mellitus with hyperglycemia Patient Disposition: Home, Self-Care Time of Disposition Decision: 11:51 Condition: Good Mode of Transportation: Private Vehicle Prescriptions / Home Meds: No Action olanzapine 5 mg tablet 5 mg PO BID Rx Instructions: HS duloxetine [Cymbalta] 60 mg capsule,delayed release(DR/EC) 60 mg PO DAILY insulin glargine [Lantus Solostar U-100 Insulin] 100 unit/mL (3 mL) insulin pen 40 unit SUBCUT QPM meclizine 25 mg tablet 25 mg PO TID PRN (Reason: dizziness) hydroxyzine pamoate 50 mg capsule 50 mg PO TID PRN (Reason: anxiety) loratadine [Allergy Relief (loratadine)] 10 mg tablet 10 mg PO DAILY naloxone 4 mg/actuation spray,non-aerosol 1 spray INTRANASAL Q3M PRN (Reason: opioid overdose) ondansetron HCl 4 mg tablet pantoprazole 40 mg tablet,delayed release (DR/EC) 40 mg PO DAILY trazodone 300 mg tablet 300 mg PO BEDTIME (DME) FreeStyle Myron 3 Sensor Device MISCELLANEOUS aripiprazole 20 mg tablet 20 mg PO DAILY gabapentin 600 mg tablet 600 mg PO Q8H metoprolol tartrate 25 mg tablet 50 mg PO Q12H tizanidine 4 mg tablet 4 mg PO Q8H PRN (Reason: spasms) trazodone 100 mg tablet 200 mg PO BEDTIME cholecalciferol (vitamin D3) 25 mcg (1,000 unit) tablet 25 mcg PO QWEEK colesevelam 625 mg tablet 625 mg PO BID Jardiance 25 mg tablet 25 mg PO DAILY lidocaine 5 % adhesive patch,medicated 1 patch topical .Q12HRs Patient Comments: 12 on and 12 off oxycodone-acetaminophen 5-325 mg tablet 1 tab PO QPM PRN (Reason: pain) promethazine 25 mg tablet 25 mg PO Q6H PRN (Reason: nausea and vomiting) rosuvastatin 40 mg tablet 40 mg PO DAILY Mounjaro 7.5 mg/0.5 mL pen injector 7.5 mg SUBCUT QWEEK Print Language: Kyrgyz Instructions: Diabetic Hyperglycemia (ED) Referrals: JIE LEE PROFILE SHAPER OPERATOR [Primary Care Provider] - 1 week
[2025-03-04 11:04] LABS: Hematocrit 39.4 % (36.0-48.0); Hemoglobin 13.6 g/dL (12.0-16.0); Immature Granulocytes Abs Auto 0.01 10^3/uL (0.00-0.03); Immature Granulocytes Pct Auto 0.2 % (0.0-0.5); Lymphocytes Absolute Auto 1.8 10^3/uL (1.2-3.8); Mean Corpuscular HGB Conc 34.5 g/dL (29.9-35.2); Mean Corpuscular Hemoglobin 28.7 pg (26.7-34.0); Mean Corpuscular Volume 83.1 fL (81.0-99.0); Platelet Count 181 10^3/uL (150-450); Red Blood Count 4.74 10^6/uL (4.20-5.40); White Blood Count 5.1 10^3/uL (4.0-11.0)
[2025-03-04 11:23] LABS: Glucose Urine UA >=1000 mg/dL (NEGATIVE)
[2025-03-04] MEDS: HYDROMORPHONE HCL 1 MG/ML CARTRIDGE IM (11:23)
[2025-03-04] MEDS: ONDANSETRON 4 MG RAPDIS TABLET SL (11:23)
[2025-03-04 11:26] LABS: Alanine Aminotransferase 28 U/L (14-59); Albumin Globulin Ratio 0.9; Albumin Level 3.8 g/dL (3.4-5.0); Alkaline Phosphatase 85 U/L (46-116); Anion Gap 14.3; Aspartate Amino Transferase 13 U/L (15-37); Blood Urea Nitrogen 10.0 mg/dL (7.0-18.0); Calcium 9.6 mg/dL (8.5-10.1); Carbon Dioxide 27.9 mmol/L (21.0-32.0); Chloride 94 mmol/L (98-107); Estimated GFR (African America >60 (>=60 mL/min/1.73m^2); Estimated GFR (Non-African Ame >60 (>=60 mL/min/1.73m^2); Globulin 4.2 g/dL; Glucose 676 mg/dL (74-106); Potassium 4.2 mmol/L (3.5-5.1); Sodium 132 mmol/L (136-145); Total Protein 8.0 g/dL (6.4-8.2)
[2025-03-04 11:29] LABS: Cast Seen? NONE SEEN #/LPF (NONE SEEN); Crystals Seen? None Seen #/HPF (None Seen); Urine Culture Indicated NO
[2025-03-04] MEDS: INSULIN ASPART 300 UNIT/3 ML PEN 10 UNIT SUBQ (11:48)
[2025-03-04] MEDS: 0.9 % SODIUM CHLORIDE 1,000 ML 1000 ML IV (11:49)
[2025-03-04 15:19] VITALS: BP 110/70; PULSE 86; O2SAT 97
== END 2025-03-04 15:21 | disposition home or self-care (01) ==
PROVIDERS: Emergency Provider Student in an Organized Health Care Education/Training Program; PCP Nurse Practitioner Family
DX: E11.65 Type 2 diabetes mellitus with hyperglycemia (principal); Z87.442 Personal history of urinary calculi; Z90.49 Acquired absence of other specified parts of digestive tract; Z90.710 Acquired absence of both cervix and uterus; Z79.4 Long term (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 of insulin; R10.9 Unspecified abdominal pain; N20.0 Calculus of kidney; Z79.85 Long-term (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 of injectable non-insulin antidiabetic drugs; Z79.84 Long term (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 of oral hypoglycemic drugs
CPT/HCPCS: 36415; 74176; 80053; 81001; 82948; 85025; 96360; 96372; 99285; J1171; J2405; Q0162

== ENCOUNTER 2025-03-18 17:12 | Emergency (ER) | payer OTHER, SELFPAY ==
[2025-03-18] VITALS (27 sets, daily range): BP systolic 115–141; BP diastolic 71–85; PULSE 119–136; TEMP 37.1; O2SAT 81–98; BMI 42.3
--- NOTE | 2025-03-18 17:43 | XR_ITS ---
The [address] [address] Patient Name: GISEL PAT MRN: [id number] date: 1975 Sex: F Assigned Patient Location: ER Current Patient Location: Accession/Order Number: [id number] Exam Date: 03/18/2025 18:30 Report Date: 03/19/2025 08:30 At the request of: LEROY JOYCE MD Procedure: XR chest 1V PA CHEST: CLINICAL HISTORY: Right arm numbness, hyperglycemia COMPARISON: 06/02/2024 FINDINGS: Unremarkable cardiomediastinal. Lungs clear. No effusion or pneumothorax. XR/XR chest 1V IMPRESSION: NEGATIVE FOR ACUTE PLEURAL-PARENCHYMAL DISEASE. Impression dictated by: Santy Romero M.D. 03/19/2025 8:30 AM Dictation Location: [place] [address] Electronically authenticated by: [id number] Y Date: 03/19/2025 08:30
--- NOTE | 2025-03-18 17:43 | ECG_ITS ---
The [facility] Test Date: 2025-03-18 Pat Name: GISEL PAT Department: Room: - Gender: Female [employer] [place]: : 1975 Requested By: [id number] Order Number: [id number] Reading MD: DANIEL BLAS M.D. Measurements Intervals [place] Rate: 118 P: 46 AR: 122 QRS: 44 QRSD: 86 T: 51 QT: 336 QTc: 406 Interpretive Statements 1120 Sinus tachycardia 4068 Nonspecific Twave abnormality abnormal ECG Compared to ECG 11/14/2024 16:35:14 Sinus rhythm no longer present Electronically Signed On 03-19-2025 13:53:22 EDT by DANIEL BLAS M.D.
--- NOTE | 2025-03-18 17:46 | ED.GENADUL1 ---
HPI HPI - General Adult General Chief complaint: Extremity Problem, Nontraumatic Stated complaint: NUMBNESS IN RIGHT SIDE OF BODY Time Seen by Provider: 03/18/25 17:38 History of Present Illness HPI narrative: 49-year-old female presents for 3-hour history of numbness in her right neck her right arm and her right leg. She was at home when this started. No injury. She does not complain of weakness or any symptoms on the left side. Her blood sugar has been running high. She states in the 700 range and she has been taking her insulin as prescribed, she is only been taking it once a day typically. Related Data Home Medications ?Medication ?Instructions ?Recorded ?Confirmed gabapentin 600 mg tablet 600 mg PO Q8H 12/30/22 03/04/25 metoprolol tartrate 25 mg tablet 50 mg PO Q12H 12/30/22 03/04/25 tizanidine 4 mg tablet 4 mg PO Q8H PRN spasms 12/30/22 03/04/25 trazodone 100 mg tablet 200 mg PO BEDTIME 12/30/22 11/14/24 olanzapine 5 mg tablet 5 mg PO BID 01/17/23 03/04/25 duloxetine 60 mg capsule,delayed 60 mg PO DAILY 07/19/23 03/04/25 release (Cymbalta) insulin glargine 100 unit/mL (3 40 unit subcut QPM 07/21/23 03/04/25 mL) subcutaneous pen (Lantus Solostar U-100 Insulin) meclizine 25 mg tablet 25 mg PO TID PRN dizziness 07/21/23 03/04/25 hydroxyzine pamoate 50 mg capsule 50 mg PO TID PRN anxiety 08/13/23 03/04/25 loratadine 10 mg tablet (Allergy 10 mg PO DAILY 03/24/24 03/04/25 Relief (loratadine)) naloxone 4 mg/actuation nasal spray 1 spray intranasal Q3M PRN opioid 03/24/24 08/07/24 overdose cholecalciferol (vitamin D3) 25 25 mcg PO QWEEK 08/07/24 03/04/25 mcg (1,000 unit) tablet colesevelam 625 mg tablet 625 mg PO BID 08/07/24 03/04/25 empagliflozin 25 mg tablet 25 mg PO DAILY 08/07/24 03/04/25 (Jardiance) lidocaine 5 % topical patch 1 patch topical .Q12HRs 08/07/24 11/14/24 oxycodone-acetaminophen 5 mg-325 1 tab PO QPM PRN pain 08/07/24 11/14/24 mg tablet promethazine 25 mg tablet 25 mg PO Q6H PRN nausea and 08/07/24 11/14/24 vomiting rosuvastatin 40 mg tablet 40 mg PO DAILY 08/07/24 03/04/25 tirzepatide 7.5 mg/0.5 mL 7.5 mg subcut QWEEK 08/07/24 03/04/25 subcutaneous pen injector ([place]) blood-glucose sensor (FreeStyle 11/14/24 11/14/24 Myron 3 Sensor device) ondansetron HCl 4 mg tablet mg 11/14/24 pantoprazole 40 mg tablet,delayed 40 mg PO DAILY 11/14/24 03/04/25 release trazodone 300 mg tablet 300 mg PO BEDTIME 11/14/24 03/04/25 aripiprazole 20 mg tablet 20 mg PO DAILY 03/04/25 03/04/25 Allergies Allergy/AdvReac Type Severity Reaction Status Date / Time melon Allergy Severe Anaphylaxis Verified 03/04/25 09:30 fentanyl Allergy Unknown Unknown Verified 03/04/25 09:30 ketorolac (From Toradol) Allergy Unknown Unknown Verified 03/04/25 09:30 meperidine (From Demerol) Allergy Unknown Unknown Verified 03/04/25 09:30 morphine Allergy Unknown Unknown Verified 03/04/25 09:30 nalbuphine (From Nubain) Allergy Unknown Unknown Verified 03/04/25 09:30 Penicillins Allergy Unknown Unknown Verified 03/04/25 09:30 aspirin AdvReac Unknown NOSE BLEEDS Verified 03/04/25 09:30 Opioid HPI Opioid Management Most Recent Opioid Data: Last Pain Scale 8 03/04/25, 09:44 Last ORT Total Score 3 03/28/24, 21:04 Last ORT Risk Category Low Risk 03/28/24, 21:04 Ur Phencyclidine Scrn, (NEGATIVE) Negative 07/21/23, 18:35 Review of Systems ROS Narrative A ten point review of systems is negative except as noted above. [facility] Medical History (Updated 03/18/25 @ 18:42 by Yefri Gasca MD) Syncope ?R55 - Syncope and collapse (ICD-10) Headache ?R51.9 - Headache, unspecified (ICD-10) Obesity ?E66.9 - Obesity, unspecified (ICD-10) HLD (hyperlipidemia) ?E78.5 - Hyperlipidemia, unspecified (ICD-10) Migraine headache ?G43.909 - Migraine, unspecified, not intractable, without status migrainosus (ICD-10) Depression with anxiety ?F41.8 - Other specified anxiety disorders (ICD-10) UTI (urinary tract infection) ?N39.0 - Urinary tract infection, site not specified (ICD-10) Kidney calculi ?N20.0 - Calculus of kidney (ICD-10) GERD (gastroesophageal reflux disease) ?K21.9 - Gastro-esophageal reflux disease without esophagitis (ICD-10) Diabetes ?E11.9 - Type 2 diabetes mellitus without complications (ICD-10) Surgical History (Updated 03/28/24 @ 21:25 by Minerva Merchant) History of cholecystectomy ?Z90.49 - Acquired absence of other specified parts of digestive tract (ICD-10) H/O oophorectomy H/O: hysterectomy ?Z90.710 - Acquired absence of both cervix and uterus (ICD-10) Family History (Updated 03/28/24 @ 21:26 by Minerva Merchant) Mother Family history of hypertension Social History (Updated 03/28/24 @ 21:27 by Minerva Merchant) Within the past year, how often did you have a drink containing alcohol: never Score interpretation: A score less than 3 is consistent with normal alcohol consumption. 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 Highest level of school completed/degree received: some college, no degree Are you now , , , , never or living with a partner: In a typical week, how many times do you talk on the telephone with family, friends, or neighbors: 3 or more times per week How often do you get together with friends or relatives: 3 or more times per week How often do you attend yazidi or zoroastrian services: 4 or more times per year Little interest or pleasure in doing things: not at all Feeling down, depressed, or hopeless: not at all Feel stressed/tense/nervous/anxious/difficulty sleeping: only a little Do you think of yourself as: straight/heterosexual Gender Identity: female Exam Narrative Exam Narrative: Nurses note and vital signs reviewed and patient is not hypoxic. General: The patient appears well and in no apparent distress. Patient is resting comfortably on cart. Skin: Warm, dry, no pallor noted. There is no rash noted. Head: Normocephalic, atraumatic Eye: Normal conjunctiva, no drainage Ears, Nose, Mouth, and Throat: oral mucosa is moist. Nares patent. Cardiovascular: Regular Rate and Rhythm Respiratory: Patient is in no distress, no accessory muscle use, lungs are clear to auscultation, no wheezing, rales or rhonchi Back: non-tender GI: Soft and nontender Musculoskeletal: The patient has no evidence of calf tenderness, no pitting edema, symmetrical pulses noted bilaterally Neurological: A&O x4, normal speech; upper and lower extremity strength 5 out of 5 and symmetric in all muscle groups. Psychiatric: Cooperative Constitutional Vital Signs, click to edit/add: Last Vital Signs Temp 98.7 F 03/18/25 17:21 Pulse 121 H 03/18/25 17:21 Resp 20 03/18/25 17:21 BP 141/83 03/18/25 17:21 Pulse Ox 97 03/18/25 17:21 Course Vital Signs Vital signs: Vital Signs Temperature 98.7 F 03/18/25 17:21 Pulse Rate 121 H 03/18/25 17:21 Respiratory Rate 20 03/18/25 17:21 Blood Pressure 141/83 03/18/25 17:21 Pulse Oximetry 97 03/18/25 17:21 Temperature 98.7 F 03/18/25 17:21 Pulse Rate 121 H 03/18/25 17:21 Respiratory Rate 20 03/18/25 17:21 Blood Pressure 141/83 03/18/25 17:21 Pulse Oximetry 97 03/18/25 17:21 Medical Decision Making MDM Narrative Medical decision making narrative: Blood sugar read high. VBG shows normal pH and other tests are pending and the patient is signed out to Dr. Peres at change of shift. Lab Data Lab results reviewed: Yes I reviewed the patient's lab results Labs: Lab Results 09/20/25 Range/Units 18:07 WBC 6.2 (4.0-11.0) 10^3/uL RBC 4.91 (4.20-5.40) 10^6/uL Hgb 14.3 (12.0-16.0) g/dL Hct 40.8 (36.0-48.0) % MCV 83.1 (81.0-99.0) fL MCH 29.1 (26.7-34.0) pg MCHC 35.0 (29.9-35.2) g/dL RDW 13.9 (11.0-15.0) % Plt Count 199 (150-450) 10^3/uL MPV 9.7 (9.5-13.5) fL Neut % (Auto) 65.2 (43.0-75.0) % Lymph % (Auto) 23.5 (20.5-60.0) % Rankin % (Auto) 8.3 (1.7-12.0) % Eos % (Auto) 2.1 (0.9-7.0) % Baso % (Auto) 0.6 (0.2-2.0) % Neut # (Auto) 4.0 (1.4-6.5) 10^3/uL Lymph # (Auto) 1.5 (1.2-3.8) 10^3/uL Rankin # (Auto) 0.5 (0.3-0.8) 10^3/uL Eos # (Auto) 0.1 (0.0-0.7) 10^3/uL Baso # (Auto) 0.0 (0.0-0.1) 10^3/uL Abs Immat Gran (auto) 0.02 (0.00-0.03) 10^3/uL Imm/Tot Granulo (auto) 0.3 (0.0-0.5) % VBG pH 7.440 H (7.330-7.430) VBG pCO2 38.6 L (40.0-52.0) mmHg Acetone, Qual Negative (NEGATIVE) ECG Data Attestation: I personally reviewed and interpreted this ECG as follows: (EKG on my interpretation shows sinus rhythm with rate of 118) Discharge Plan Discharge Patient Disposition: Still a Patient
[2025-03-18 18:21] LABS: Hematocrit 40.8 % (36.0-48.0); Hemoglobin 14.3 g/dL (12.0-16.0); Immature Granulocytes Abs Auto 0.02 10^3/uL (0.00-0.03); Immature Granulocytes Pct Auto 0.3 % (0.0-0.5); Lymphocytes Absolute Auto 1.5 10^3/uL (1.2-3.8); Mean Corpuscular HGB Conc 35.0 g/dL (29.9-35.2); Mean Corpuscular Hemoglobin 29.1 pg (26.7-34.0); Mean Corpuscular Volume 83.1 fL (81.0-99.0); Platelet Count 199 10^3/uL (150-450); Red Blood Count 4.91 10^6/uL (4.20-5.40); White Blood Count 6.2 10^3/uL (4.0-11.0)
[2025-03-18 18:28] LABS: PCO2 VBG 38.6 mmHg (40.0-52.0); pH VBG 7.440 (7.330-7.430)
[2025-03-18] MEDS: 0.9 % SODIUM CHLORIDE 1,000 ML 1000 ML IV (18:54)
--- NOTE | 2025-03-18 19:11 | PC.NURSE ---
Pt refuses Tylenol administration due to saying it wont do anything anyways pt asked if a new doctor was coming on
[2025-03-18 20:04] LABS: Anion Gap 16.0; Blood Urea Nitrogen 10.0 mg/dL (7.0-18.0); Calcium 9.4 mg/dL (8.5-10.1); Carbon Dioxide 24.0 mmol/L (21.0-32.0); Chloride 95 mmol/L (98-107); Estimated GFR (African America >60 (>=60 mL/min/1.73m^2); Estimated GFR (Non-African Ame >60 (>=60 mL/min/1.73m^2); Potassium 4.0 mmol/L (3.5-5.1); Sodium 131 mmol/L (136-145)
[2025-03-18 20:05] LABS: Glucose 664 mg/dL (74-106)
[2025-03-18] MEDS: INSULIN ASPART 300 UNIT/3 ML PEN 10 UNIT SUBQ (21:31)
== END 2025-03-18 22:43 | disposition home or self-care (01) ==
PROVIDERS: Student in an Organized Health Care Education/Training Program; Emergency Provider Emergency Medicine; PCP Nurse Practitioner Family
DX: E11.65 Type 2 diabetes mellitus with hyperglycemia (principal); M79.601 Pain in right arm; M79.604 Pain in right leg; Z79.4 Long term (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 of insulin; Z79.84 Long term (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 of oral hypoglycemic drugs
CPT/HCPCS: 36415; 70450; 71045; 80048; 81001; 82009; 82800; 82948; 85025; 93005; 99285

== ENCOUNTER 2025-03-22 20:43 | Emergency (ER) | payer OTHER, SELFPAY ==
--- OUTSIDE RECORDS SUMMARY | 2025-03-07 18:24 | XMS_ITS | Encounter Summary ---
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 Emergency Department [address] [place] [id number] Suhail Salazar MD [address] [address] Discharge Disposition: Home Social History Tobacco Use Types Packs/Day Years Used Date Smoking Tobacco: Never Smokeless Tobacco: Never Alcohol Use Standard Drinks/Week Comments Never 0 (1 standard drink = 0.6 oz pur e alcohol) [facility] Utilities Answer Date Recorded In the past 12 months has [facility] [employer], gas, oil, or water [employer] threatened to shut off services in your [...] any time in the past 12 [facility], were you homeless or living in a [place] [facility] [place] facility (including now)? No 02/13/2025 Comments No Sex and Gender Information Value Date Recorded Sex Assigned at Not on file Legal Sex Female 8:07 AM EDT Gender Identity Female 07/08/2020 9:32 PM EST Sexual Orientation Straight 07/08/2020 9: 32 PM EST documented as of this encounter Last Filed Vital Signs Vital Sign Reading Time Taken Comments Blood Pressure 103/62 03/07/2025 9:03 PM EDT Pulse 110 03/07/2025 9:03 PM EDT Temperature 36.8 C (98.2 F) 03/07/2025 9:03 PM EDT Respiratory Rate 18 03/07/2025 9:31 PM EDT Oxygen Saturation 94% 03/07/2025 9:03 PM EDT Inhaled Oxygen Concentration - - Weight 122.5 kg (270 lb) 03/07/2025 6:25 PM EDT Height 170.2 cm (5' 7 ) 03/07/2025 6:25 PM EDT Body Mass Index 42.29 03/07/2025 6:25 PM EDT documented in this encounter Discharge Instructions * Discharge Instructions* Suhail Salazar MD - 03/07/2025 8:17 PM EDT Return to the ED for worsening condition, not tolerating fluids, difficulty breathing, or any otherworrisome symptoms. Stay well hydrated. * Attachments The following attachments cannot be sent through Care Everywhere. * Nausea and Vomiting (Guyanese) * Back Pain (Guyanese) * Hematuria (Guyanese) documented in this encounter Medications at Time of Discharge albuterol 90 mcg/actuation inhaler Inhale 2 (two) puffs every 6 (six) hours as needed for wheezing . ARIPiprazole (ABILIFY) 20 MG tablet Take 1 (one) tablet (20 mg total) by mouth nightly . blood-glucose meter kit 1 kit by Other route 4 (four) times a day before meals and nightly . 1 DULoxetine (CYMBALTA) 60 MG capsule Take 1 (one) capsule (60 mg total) by mouth 2 (two) times a day . 3 hydrOXYzine (VISTARIL) 50 MG capsule Take 1 (one) capsule (50 mg total) by mouth every 6 (six) hours as needed for anxiety . insulin glargine (LANTUS) 100 unit/mL injection Inject 40 (forty) Units under the skin nightly . insulin lispro (AdmeLOG,HumaLOG ) 100 unit/mL injection Inject 35 (thirty five) Units under the skin 3 (three) times a day before meals . loratadine (CLARITIN) 10 mg tablet Take 1 (one) tablet (10 mg total) by mouth daily . meclizine (ANTIVERT) 25 mg tablet Take 1 (one) tablet (25 mg total) by mouth 3 (three) times a day as needed for nausea . metoprolol tartrate (LOPRESSOR) 25 MG tablet Take 1 (one) tablet (25 mg total) by mouth 2 (two) times a day . 60 tablet 5 naloxone (NARCAN) 4 mg/actuation [place] Administer 1 spray into one nostril for known or suspected opioid overdose. If patient worsens or does not respond, may repeat in 2-3 minutes. . 2 each 1 4 OLANZapine (ZYPREXA) 5 MG tablet Take 1 (one) tablet (5 mg total) by mouth 2 (two) times a day as needed . pantoprazole (PROTONIX) 40 MG tablet Take 1 (one) tablet (40 mg total) by mouth daily . promethazine (PHENERGAN) 25 MG suppository Insert 1 (one) suppository (25 mg total) into the rectum every 6 (six) hours as needed for nausea Do not take within 6 hours of your other phenergan . 12 suppository 5 promethazine (PHENERGAN) 25 MG tablet Take 1 (one) tablet (25 mg total) by mouth every 6 (six) hours as needed for nausea . 10 tablet 12/06/2021 12:44 PM EDT 2 rosuvastatin (CRESTOR) 40 MG tablet Take 1 (one) tablet (40 mg total) by mouth daily . tiZANidine (ZANAFLEX) 4 MG tablet Take 1 (one) tablet (4 mg total) by mouth 2 (two) times a day . 2 traZODone (DESYREL) 300 MG tablet Take 1 (one) tablet (300 mg total) by mouth nightly . 1 UltiCare Pen Needle 32 gauge x /32 Ndle USE 1 PEN NEEDLE 4 TIMES DAILY BEFORE MEAL(S) AND NIGHTLY 2 Mounjaro 7.5 mg/0.5 mL Pen 0.5 mL (7.5 mg total) by abdominal subcutaneous route once a week Thursday . 4 03/17/20 25 documented as of this encounter ED Notes * Suhail Salazar MD - 03/07/2025 6:40 PM EDT ED PROVIDER NOTE [facility] EMERGENCY DEPARTMENT NAME: Bree Carlton AGE: 49 y.o. : 1975 VISIT DATE: 03/07/2025 CSN: [id number] PCP: Skye Jones CNP Chief Complaint Patient presents with Flank Pain 49-year-old female with past medical history that includes type 2 diabetes, repeated episodes of UTIs, repeated episodes of flank pain back pain, presenting to the emergency room with complaint of flank pain nausea vomiting. Patient states she has had pain in her right lumbar back for the last 2 days. She had nausea and vomiting that is nonbilious and nonbloody. She keeps water down for about 20 minutes before having emesis. This feels very much like prior kidney stones, but also pyelonephritis. +hematuria No recent fever, shaking chills, diarrhea, difficulty breathing, chest discomfort, vertigo, dysuria/freq/urgency. No recent spoiled food and chest trends or known sick contacts. She was seen in the emergency department at [place] earlier today had a negative workup includingCT abdomen pelvis. She states the doctor never came back in to see her to let her know what was happening and she did not get any prescriptions for anything. Patient states she does have Percocets at home but tried to take them but would simply vomit so shestopped trying. Past Medical History: Diagnosis Date Diabetes mellitus (HCC) Diabetes mellitus, type 2 (HCC) Flank pain GERD (gastroesophageal reflux disease) History of kidney stones Hx: UTI (urinary tract infection) Past Surgical History: Procedure Laterality Date ADENOIDS CARPAL TUNNEL RELEASE Bilateral CHOLECYSTECTOMY CYSTO RETRO STONE MANIPULATION STENT INSERTION Right 01/30/2021 Procedure: CYSTOSCOPY WITH STENT URETEROSCOPY WITH HOLMIUM LASER; Surgeon: Aleks Barbosa MD; Location: Main OR; Service: Urology CYSTO URETERAL STENT REMOVAL 02/06/2021 HERNIA REPAIR HYSTERECTOMY LEG SURGERY ROTATOR CUFF REPAIR Right TONSILLECTOMY Family History Problem Relation Age of Onset Heart disease Father Social History [1] Previous Medications Medication Sig albuterol 90 mcg/actuation inhaler Inhale 2 (two) puffs every 6 (six) hours as needed for wheezing . ARIPiprazole (ABILIFY) 20 MG tablet Take 1 (one) tablet (20 mg total) by mouth nightly . blood-glucose meter kit 1 kit by Other route 4 (four) times a day before meals and nightly . DULoxetine (CYMBALTA) 60 MG capsule Take 1 (one) capsule (60 mg total) by mouth 2 (two) times a day. gabapentin (NEURONTIN) 600 MG tablet Take 1 (one) tablet (600 mg total) by mouth 2 (two) times a day Reasons: neuropathic pain. hydrOXYzine (VISTARIL) 50 MG capsule Take 1 (one) capsule (50 mg total) by mouth every 6 (six) hours as needed for anxiety . insulin glargine (LANTUS) 100 unit/mL injection Inject 40 (forty) Units under the skin nightly . insulin lispro (AdmeLOG,HumaLOG) 100 unit/mL injection Inject 35 (thirty five) Units under the skin3 (three) times a day before meals . loratadine (CLARITIN) 10 mg tablet Take 1 (one) tablet (10 mg total) by mouth daily . meclizine (ANTIVERT) 25 mg tablet Take 1 (one) tablet (25 mg total) by mouth 3 (three) times a day as needed for nausea . metoprolol tartrate (LOPRESSOR) 25 MG tablet Take 1 (one) tablet (25 mg total) by mouth 2 (two) times a day . Mounjaro 7.5 mg/0.5 mL Pen 0.5 mL (7.5 mg total) by abdominal subcutaneous route once a week Thursday. naloxone (NARCAN) 4 mg/actuation [place] Administer 1 spray into one nostril for known or suspected opioid overdose. If patient worsens or does not respond, may repeat in 2-3 minutes. . OLANZapine (ZYPREXA) 5 MG tablet Take 1 (one) tablet (5 mg total) by mouth 2 (two) times a day as needed . pantoprazole (PROTONIX) 40 MG tablet Take 1 (one) tablet (40 mg total) by mouth daily . promethazine (PHENERGAN) 25 MG tablet Take 1 (one) tablet (25 mg total) by mouth every 6 (six) hours as needed for nausea . rosuvastatin (CRESTOR) 40 MG tablet Take 1 (one) tablet (40 mg total) by mouth daily . tiZANidine (ZANAFLEX) 4 MG tablet Take 1 (one) tablet (4 mg total) by mouth 2 (two) times a day . traZODone (DESYREL) 300 MG tablet Take 1 (one) tablet (300 mg total) by mouth nightly . UltiCare Pen Needle 32 gauge x 5/32 Ndle USE 1 PEN NEEDLE 4 TIMES DAILY BEFORE MEAL(S) AND NIGHTLY Allergies[2] Review of Systems Patient Vitals for the past 24 hrs: BP Temp Temp src Pulse Resp SpO2 Height Weight 03/07/251 -- -- -- -- 18 -- -- -- 03/07/252102 103/62 98.2 ??F (36.8 ??C) Oral (!) 110 18 94 % -- -- 03/07/252032 -- -- -- -- 18 -- -- -- 03/07/252003 -- -- -- -- 18 -- -- -- 03/07/25 1949 114/78 98 ??F (36.7 ??C) Oral (!) 118 18 97 % -- -- 03/07/25 1825 136/87 98.1 ??F (36.7 ??C) Oral (!) 124 18 95 % 5' 7 122.5 kg (270 lb) Physical Exam Vitals and nursing note reviewed. Constitutional: General: She is not in acute distress. Appearance: Normal appearance. She is not ill-appearing. HENT: Head: Normocephalic and atraumatic. Eyes: Extraocular Movements: Extraocular movements intact. Cardiovascular: Rate and Rhythm: Normal rate. Pulses: Normal pulses. Musculoskeletal: General: No deformity. Normal range of motion. Cervical back: Normal range of motion and neck supple. No rigidity. Comments: No vertebral tenderness to palpation Palpation of the musculature of the right lumbar back duplicates her complaints of pain. Bilateral lower extremities neuro vastly intact with symmetric posterior tibial pulses soft compartments throughout. Negative straight leg raise test. Back range of motion is intact. Pulmonary: Effort: Pulmonary effort is normal. No respiratory distress. Abdominal: General: Abdomen is flat. There is no distension. Tenderness: There is no abdominal tenderness. Skin: General: Skin is warm and dry. Capillary Refill: Capillary refill takes less than 2 seconds. Neurological: Mental Status: She is alert and oriented to person, place, and time. Mental status is at baseline. Cranial Nerves: No cranial nerve deficit (grossly). Motor: No weakness. Psychiatric: Mood and Affect: Mood normal. Behavior: Behavior normal. Laboratory & Radiographic Imaging (if done): Results for orders placed or performed during the hospital encounter of 03/07/25 BMP Result Value Ref Range Sodium 135 135 - 145 mmol/L Potassium 3.7 3.5 - 5.1 mmol/L Chloride 95 (L) 98 - 108 mmol/L Bicarbonate 22 21 - 32 mmol/L Anion Gap 22 (H) 10 - 20 mmol/L Glucose 495 (CH) 65 - 99 mg/dL BUN 12 8 - 25 mg/dL Creatinine 0.80 0.40 - 1.10 mg/dL eGFR 90 >=60 mL/min/1.73 m2 BUN/Creatinine Ratio 15.0 10.0 - 20.0 Calcium 9.6 8.4 - 10.2 mg/dL Urinalysis Result Value Ref Range Color, Urine Red (A) Colorless, Yellow Clarity, Urine Cloudy (A) Clear Specific [place] <=1.005 1.005 - 1.025 pH, Urine 5.5 5.0 - 7.0 Protein, Urine Negative Negative mg/dL Glucose, Urine >=500 (A) Negative mg/dL Ketones, Urine Negative Negative mg/dL Bilirubin, Urine Negative Negative Urobilinogen, Urine <2.0 <2.0 mg/dL Blood, Urine Large (A) Negative Nitrite, Urine Negative Negative Leukocyte Esterase, Urine Negative Negative WBCs, Urine 2 0 - 5 /hpf RBCs, Urine >180 (H) 0 - 3 /hpf Bacteria, Urine None Seen None Seen /hpf Squamous Epithelial 5 (H) 0 - 4 /hpf POC Glucose Result Value Ref Range Glucose FINGERSTICK BS 438. UPDATED DR. SALAZAR. 65 - 99 mg/dL POC Glucose Result Value Ref Range Glucose 498 (CH) 65 - 99 mg/dL POC Glucose Result Value Ref Range Glucose 438 (CH) 65 - 99 mg/dL CBC Auto Differential Result Value Ref Range WBC 3.70 (L) 4.50 - 11.00 K/mcL RBC 4.68 4.00 - 5.20 M/mcL Hemoglobin 13.4 12.0 - 16.0 g/dL Hematocrit 39.9 36.0 - 46.0 % MCV 85.3 80.0 - 100.0 fL MCH 28.6 26.0 - 34.0 pg MCHC 33.6 31.0 - 37.0 g/dL Platelets 179 150 - 400 K/mcL RDW - CV 13.0 11.6 - 14.8 % MPV 9.2 (L) 9.4 - 12.4 fL Neutrophils 49.9 % Lymphocytes 36.8 % Monocytes 9.5 % Eosinophils 3.0 % Basophils 0.5 % IG Percent 0.30 % Neutrophils Abs 1.85 1.70 - 7.00 K/mcL Lymphocytes Abs 1.36 0.90 - 4.00 K/mcL Monocytes Abs 0.35 0.30 - 0.90 K/mcL Eosinophils Abs 0.11 0.00 - 0.50 K/mcL Basophils Abs 0.02 0.00 - 0.30 K/mcL IG Absolute 0.01 0.00 - 0.30 K/mcL No orders to display Procedures Medical Decision Making 49-year-old female presenting to the emergency department with complaint of acute on chronic right lumbar back pain. She also has pink-tinged urine and was recently seen that she does have hematuria.She also the recent CT scan did not show anything acute. That was about 13 hours ago so no indication or need to repeat that. If not for the hematuria and N/V, this seems rather musculoskeletal. She has benign abdomen. Giving IV fluids. Recent note from earlier today stated that she had decreased responsiveness after Dilaudid and in the context of her allergies and that description, giving her some Zofran and seeing if she can tolerate the Percocet. Looking back at records patient has a multitude of visits for this. Last few CTs have not shown ureteral stones. Last few Ucx have been negative. She's had 11 CT Abd/Pelv thus far this year that are listed in chart. Last several that I can see results for are NAD per rad Old records show admissions for pyelo but with neg Ucx. Today shows some hyperglycemia, but patient has a history of poorly controlled blood sugars including to his degree. Additionally shows a mildly decreased chloride patient has had vomiting. Note from earlier today states that when she got Dilaudid x 1 she became much less responsive and overly sedated. Therefore, patient initially ordered a Percocet tablet but she Saying she was too nauseous to take it so she got more antiemetics until she was able to tolerate it. Also gave a test dose of 0.25 Dil.Pt's vitals improved, pain improved. She notes that her elevated heart rate is quite typical for her when she is in pain and she is still in pain on repeat HR of 110. Therefore, giving her another 0.25mg. It seems very unlikely that there is any acute surgical, vascular, sepsis process. She continues tohave fairly normal labs, no fevers, no rigors, no sign of UTI. Doubt pylelo. Additionally no sign of DKA or HONK. Discussed with her options for going home since she is quite sure that this elevated heart rate is from her pain, versus admission/transfer. She would prefer to go home and that seems quite reasonable and would avoid the risks associated with hospitalization. She is tolerating p.o. currently. She has oral pain and nausea medications at home. It is possible that the patient has a different cause for back pain and has chronic hematuria. She states that her current urologist is planning on doing some sort of procedure (likely cystoscopy) for this ongoing hematuria but got delayed from shoulder surgery that she had months ago. She has justnot followed back up with him. Strongly encouraged her to do so. Also encouraged to continue taking her insulin and to also f/u PCP. Giving her prescription for Phenergan suppositories as she says she is open to trying that if needed. She understands if is not working or she is worsening in any way that she must return. Patient is comfortable with, and understands, the plan for discharge, return signs, outpatient follow up closely, symptomatic care, the differential considerations along with likelihoods of those considerations, and the findings of the visit today. . . Clinical Impression: 1. Acute right-sided low back pain without sciatica 2. Hematuria, gross 3. Nausea & vomiting ED Disposition ED Disposition Discharge Condition Stable Comment Bree Carlton discharged to home/self care in stable condition. Follow-up Information 1. Skye Jones, ENGLISH LECTURER. Specialty: Nurse Practitioner Why: enoch for an appointment within 3 days., Follow up sooner for any problems or concerns [id number] [facility] [address] 2. Your urologist. Why: Follow up within 1 week, Follow up sooner for any problems or concerns Contact information for after-discharge care Follow-up information has not been specified. New Prescriptions promethazine (PHENERGAN) 25 MG suppository Insert 1 (one) suppository (25 mg total) into the rectumevery 6 (six) hours as needed for nausea Do not take within 6 hours of your other phenergan . [1] Social History Socioeconomic History Marital status: Single Tobacco Use Smoking status: Never Smokeless tobacco: Never Vaping Use Vaping status: Never Used Substance and Sexual Activity Alcohol use: Never Drug use: Never Social Drivers of Health Food Insecurity: No Food Insecurity (02/25/2025) Received from [facility] Hunger Vital Sign Worried About Running Out of Food in the Last Year: Never true Ran Out of Food in the Last Year: Never true Transportation Needs: No Transportation Needs (02/25/2025) Received from [facility] PRAPARE - Transportation In the past 12 months, has lack of transportation kept you from medical appointments or from getting medications?: No In the past 12 months, has lack of transportation kept you from meetings, work, or from getting things needed for daily living?: No Housing Stability: Unknown (02/25/2025) Received from [facility] Housing Stability Vital Sign Unable to Pay for Housing in the Last Year: No Homeless in the Last Year: No [2] Allergies Allergen Reactions Fentanyl Rash Other reaction(s): Hives, Hives/Urticaria Ciprofloxacin Hives and Rash Ketorolac Hives and Itching Meperidine Hives Morphine Hives Patient tolerates hydromorphone other narcotic allergies Nalbuphine Hives 04/05/24-per Dr. Marlow, pt tolerates oxy other narcotic allergies Penicillins Hives Tolerates cefazolin, ceftriaxone 04/05/24-per Dr. Marlow, pt tolerates cefadroxil 3:55pm Melon Swelling Aspirin Other (See Comments) Pt states gives me nosebleeds (epistaxis) Suhail Salazar MD 03/08/25 0603 * Vaishali Arango RN - 03/07/2025 6:24 PM EDT Pt c/o R sided flank pain x 2 days with emesis. Pt also reports blood in urine. documented in this encounter Plan of Treatment Not on file documented as of this encounter Procedures Procedure Name Priority Date/Time Associated Diagnosis Comments POC GLUCOSE STAT 03/07/2025 9:03 PM EDT POC GLUCOSE - RALS Routine 03/07/2025 9: 02 PM EDT POC GLUCOSE - RALS Routine 03/07/2025 8: 02 PM EDT CBC WITH AUTO DIFFERENTIAL STAT 03/07/2025 6:53 PM EDT URINALYSIS STAT 03/07/2025 6:53 PM EDT CBC AND DIFFERENTIAL STAT 03/07/2025 6:53 PM EDT URINE AEROBIC CULTURE ENOCH 03/07/2025 6:53 PM EDT BASIC METABOLIC PANEL STAT 03/07/2025 6:53 PM EDT documented in this encounter Results * POC Glucose (03/07/2025 9:03 PM EDT) Glucose FINGERSTICK BS 438. UPDATED DR. SALAZAR. 65 - 99 mg/dL Blood 03/07/2025 9:03 PM EDT Suhail Salazar MD POINT OF CARE TEST ORDERABLES Fi nal Result * (ABNORMAL) POC Glucose (03/07/2025 9:02 PM EDT) Glucose 438(HH) 65 - 99 mg/dL 03/07/2025 9:03 PM EDT LAB Blood BLOOD SPECIMEN / Unknown 03/07/2025 9:02 PM EDT 03/07/2025 9:03 PM EDT Narrative LAB - 03/07/2025 9:03 PM EDT Critical result acted upon time of test. Test performed at bedside. [facility] POCT ORDERABLES - DE VICE Final Result Performing Organization Address [facility]/ZIP Co de Phone Number LAB [address] [place] [address] * (ABNORMAL) POC Glucose (03/07/2025 8:02 PM EDT) Glucose 498(HH) 65 - 99 mg/dL 03/07/2025 8:04 PM EDT LAB Blood BLOOD SPECIMEN / Unknown 03/07/2025 8:02 PM EDT 03/07/2025 8:04 PM EDT Narrative LAB - 03/07/2025 8:04 PM EDT Critical result acted upon time of test. Test performed at bedside. [facility] Emergency [facility] POCT ORDERABLES - DE VICE Final Result Performing Organization Address [facility] Co de Phone Number LAB [address] [place] [address] * (ABNORMAL) CBC Auto Differential (03/07/2025 6:53 PM EDT) WBC 3.70(L) 4.50 - 11.00 K/mcL 03/07/2025 7:00 PM EDT LAB RBC 4.68 4.00 - 5.20 M/mcL 03/07/2025 7:00 PM EDT LAB Hemoglobin 13.4 12.0 - 16.0 g/dL 03/07/2025 7:00 PM EDT LAB Hematocrit 39.9 36.0 - 46.0 % 03/07/2025 7:00 PM EDT LAB MCV 85.3 80.0 - 100.0 fL 03/07/2025 7:00 PM EDT LAB MCH 28.6 26.0 - 34.0 pg 03/07/2025 7:00 PM EDT LAB MCHC 33.6 31.0 - 37.0 g/dL 03/07/2025 7:00 PM EDT LAB Platelets 179 150 - 400 K/mcL 03/07/2025 7:00 PM EDT LAB RDW - CV 13.0 11.6 - 14.8 % 03/07/2025 7:00 PM EDT LAB MPV 9.2(L) 9.4 - 12.4 fL 03/07/2025 7:00 PM EDT LAB Neutrophils 49.9 % 03/07/2025 7:00 PM EDT LAB Lymphocytes 36.8 % 03/07/2025 7:00 PM EDT LAB Monocytes 9.5 % 03/07/2025 7:00 PM EDT LAB Eosinophils 3.0 % 03/07/2025 7:00 PM EDT LAB Basophils 0.5 % 03/07/2025 7:00 PM EDT LAB IG Percent 0.30 % 03/07/2025 7:00 PM EDT LAB Comment:The IG parameter is the percentage of metamyelocytes, myelocytes and promyelocytes. An immature granulocyte count (IG) of 1% or more suggests the possibility of infection, an IG count of 3% is very likely related to an infection. Neutrophils Abs 1.85 1.70 - 7.00 K/mcL 03/07/2025 7:00 PM EDT LAB Lymphocytes Abs 1.36 0.90 - 4.00 K/mcL 03/07/2025 7:00 PM EDT LAB Monocytes Abs 0.35 0.30 - 0.90 K/mcL 03/07/2025 7:00 PM EDT LAB Eosinophils Abs 0.11 0.00 - 0.50 K/mcL 03/07/2025 7:00 PM EDT LAB Basophils Abs 0.02 0.00 - 0.30 K/mcL 03/07/2025 7:00 PM EDT LAB IG Absolute 0.01 0.00 - 0.30 K/mcL 03/07/2025 7:00 PM EDT LAB Blood BLOOD SPECIMEN / Unknown Venipuncture / Unknown 03/07/2025 6:53 PM EDT 03/07/2025 6:56 PM EDT us Suhail Salazar MD LAB BLOOD ORDERABLES Final Resul t LAB [address] [place] [address] * Urine Aerobic Culture (03/07/2025 6:53 PM EDT) Culture < 10,000 CFU/mL of normal urogenital microbiota 03/09/2025 12:11 PM EDT [facility] LAB Urine URINE SPECIMEN OBTAINED BY CLEAN CATCH PROCEDURE / Unknown Collection / Unknown 03/07/2025 6:53 PM EDT 03/07/2025 6:56 PM EDT us Suhail Salazar MD MICROBIOLOGY - GENERAL ORDERABLE S Final Result [facility] [address] [place] [address] * (ABNORMAL) Urinalysis (03/07/2025 6:53 PM EDT) Color, Urine Red(A) Colorless, Yellow 03/07/2025 7:04 PM EDT LAB Clarity, Urine Cloudy(A) Clear 03/07/2025 7:04 PM EDT LAB Specific [place] <=1.005 1.005 - 1.025 03/07/2025 7:04 PM EDT LAB pH, Urine 5.5 5.0 - 7.0 03/07/2025 7:04 PM EDT LAB Protein, Urine Negative Negative mg/dL 03/07/2025 7:04 PM EDT LAB Glucose, Urine >=500(A) Negative mg/dL 03/07/2025 7:04 PM EDT LAB Ketones, Urine Negative Negative mg/dL 03/07/2025 7:04 PM EDT LAB Bilirubin, Urine Negative Negative 03/07/2025 7:04 PM EDT LAB Urobilinogen, Urine <2.0 <2.0 mg/dL 03/07/2025 7:04 PM EDT LAB Blood, Urine Large(A) Negative 03/07/2025 7:04 PM EDT LAB Nitrite, Urine Negative Negative 03/07/2025 7:04 PM EDT LAB Leukocyte Esterase, Urine Negative Negative 03/07/2025 7:04 PM EDT LAB WBCs, Urine 2 0 - 5 /hpf 03/07/2025 7:04 PM EDT LAB RBCs, Urine >180(H) 0 - 3 /hpf 03/07/2025 7:04 PM EDT LAB Bacteria, Urine None Seen None Seen /hpf 03/07/2025 7:04 PM EDT LAB Squamous Epithelial 5(H) 0 - 4 /hpf 03/07/2025 7:04 PM EDT LAB Urine URINE SPECIMEN / Unknown Collection / Unknown 03/07/2025 6:53 PM EDT 03/07/2025 6:56 PM EDT Narrative LAB - 03/07/2025 7:04 PM EDT Microscopic examination is performed on all urinalysis samples and only positive findings are reported. The test for blood on the chemical analytic portion of urinalysis may also be positive due to hemoglobinuria and myoglobinuria and if red blood cells are present they are quantified by microscopic examination. Suhail Salazar MD URINE ORDERABLES Final Result LAB [address] [place] [address] * (ABNORMAL) BMP (03/07/2025 6:53 PM EDT) Sodium 135 135 - 145 mmol/L 03/07/2025 7:36 PM EDT LAB Potassium 3.7 3.5 - 5.1 mmol/L 03/07/2025 7:36 PM EDT LAB Chloride 95(L) 98 - 108 mmol/L 03/07/2025 7:36 PM EDT LAB Bicarbonate 22 21 - 32 mmol/L 03/07/2025 7:36 PM EDT LAB Anion Gap 22(H) 10 - 20 mmol/L 03/07/2025 7:36 PM EDT LAB Glucose 495(HH) 65 - 99 mg/dL 03/07/2025 7:36 PM EDT LAB BUN 12 8 - 25 mg/dL 03/07/2025 7:36 PM EDT LAB Creatinine 0.80 0.40 - 1.10 mg/dL 03/07/2025 7:36 PM EDT LAB eGFR 90 >=60 mL/min/1.7 3 m2 03/07/2025 7:36 PM EDT LAB Comment:Estimated GFR was ca lculated using the 2020 CKD-EPI creatinine equation. BUN/Creatinine Ratio 15.0 10.0 - 20.0 03/07/2025 7:36 PM EDT LAB Calcium 9.6 8.4 - 10.2 mg/dL 03/07/2025 7:36 PM EDT LAB Blood BLOOD SPECIMEN / Unknown Venipuncture / Unknown 03/07/2025 6:53 PM EDT 03/07/2025 6:56 PM EDT Narrative LAB - 03/07/2025 7:36 PM EDT Laboratory Services has implemented the eGFR calculation approach that does not have a coefficient for race that conforms to the NKF-ASN Task Force Recommendations. us Suhail Salazar MD LAB BLOOD ORDERABLES Final Resul t LAB [address] [place] [address] documented in this encounter Visit Diagnoses Diagnosis Acute right-sided low back pain without sciatica- Primary Hematuria, gross Gross hematuria Nausea & vomiting Nausea with vomiting documented in this encounter Administered Medications Inactive Administered Medications - up to 3 most recent administrations Medication Order MAR Action Action Date Dose Rate Site diphenhydrAMINE (BENADRYL) injection 25 mg 25 mg, Intravenous, Once, On Thu03/07/25 at 1950, For 1 dose, For IV administration, give at a rate less than or equal to 25 mg/min Given 03/07/2025 8:00 PM EDT 25 mg Right Arm HYDROmorphone (DILAUDID) injection 0.25 mg 0.25 mg, Intravenous, Once as needed, moderate to severe pain, Starting on Thu03/07/25 at 2010, For 1 dose Given 03/07/2025 8:33 PM EDT 0.25 mg Right Arm HYDROmorphone (DILAUDID) injection 0.25 mg 0.25 mg, Intravenous, Once, On Thu03/07/25 at 5, For 1 dose Given 03/07/2025 9:31 PM EDT 0.25 mg Right Arm insulin lispro (AdmeLOG,HumaLOG) injection 10 Units 10 Units, Subcutaneous, Once, On Thu03/07/25 at 2010, For 1 dose Given 03/07/2025 8:35 PM EDT 10 Units Right Arm lactated ringers bolus 1,000 mL 1,000 mL, Intravenous, at 983.6 mL/hr, Once, On Thu03/07/25 at 1950, For 1 dose New Bag 03/07/2025 7:57 PM EDT 1,000 mL 983.6 mL/hr Right Arm metoclopramide (REGLAN) injection 10 mg 10 mg, Intravenous, Once, On Thu03/07/25 at 1950, For 1 dose Given 03/07/2025 7:58 PM EDT 10 mg Right Arm ondansetron (ZOFRAN) injection 4 mg 4 mg, Intravenous, Once, On Thu03/07/25 at 1845, For 1 dose Given 03/07/2025 6:59 PM EDT 4 mg ondansetron (ZOFRAN) injection 4 mg 4 mg, Intravenous, Once as needed, nausea, vomiting, Starting on Thu03/07/25 at 1914, For 1 dose Given 03/07/2025 7:27 PM EDT 4 mg Right Arm oxyCODONE-acetaminophen (PERCOCET) 5-325 mg per tablet 1 tablet 1 tablet, Oral, Once, On Thu03/07/25 at 1845, For 1 dose Given 03/07/2025 8:04 PM EDT 1 tablet sodium chloride (PF) (NS) flush 5 mL 5 mL, Intravenous, As needed, line care, Starting on Thu03/07/25 at 1839 sodium chloride 0.9% (NS) bolus 1,000 mL 1,000 mL, Intravenous, at 983.6 mL/hr, Once, On Thu03/07/25 at 1845, For 1 dose New Bag 03/07/2025 6:59 PM EDT 1,000 mL 983.6 mL/hr Right Arm sodium chloride 0.9% (NS) 0-150 mL/hr, Intravenous, As needed, To flush line after IV infusions when no maintenance IV ordered or a compatibility issue. Infuse 20ml at the same rate as the secondary infusion, Starting on Thu03/07/25 at 1839, Run as Primary IV. NOT intended for KVO. documented in this encounter Active and Recently Administered Medications Times are shown in EDT. Scheduled Medication Order 03/05/2025 03/06/2025 03/07/2025 diphenhydrAMINE (BENADRYL) injection 25 mg (COMPLETED) 25 mg, Intravenous, Once, On 03/07/25 at 1950, For 1 dose, For IV administration, give at a rate less than or equal to 25 mg/min 1999 (Given - Provid er: Linda Otero RN) HYDROmorphone (DILAUDID) injection 0.25 mg (COMPLETED) 0.25 mg, Intravenous, Once, On e 03/07/25 at 2124, For 1 dose 2130 (Given - Provid er: Linda Otero RN) insulin lispro (AdmeLOG,HumaLOG) injection 10 Units (COMPLETED) 10 Units, Subcutaneous, Once, On e 03/07/25 at 2009, For 1 dose 2034 (Given - Provid er: Linda Otero RN) lactated ringers bolus 1,000 mL (COMPLETED) 1,000 mL, Intravenous, at 983.6 mL/hr, Once, On e 03/07/25 at 1950, For 1 dose 1956 (New Bag - Prov ider: Linda Otero RN)2112 (Stopped - Provider: Linda Otero RN) metoclopramide (REGLAN) injection 10 mg (COMPLETED) 10 mg, Intravenous, Once, On e 03/07/25 at 1950, For 1 dose 1957 (Given - Provid er: Linda Otero RN) ondansetron (ZOFRAN) injection 4 mg (COMPLETED) 4 mg, Intravenous, Once, On e 03/07/25 at 184, For 1 dose 1858 (Given - Provid er: Vaishali Arango RN) oxyCODONE-acetaminophen (PERCOCET) 5-325 mg per tablet 1 tablet (COMPLETED) 1 tablet, Oral, Once, On e 03/07/25 at 1845, For 1 dose 2003 (Given - Provid er: Linda Otero RN) sodium chloride 0.9% (NS) bolus 1,000 mL (COMPLETED) 1,000 mL, Intravenous, at 983.6 mL/hr, Once, On Thu03/07/25 at 1845, For 1 dose 1858 (New Bag - Prov ider: Vaishali Arango RN)1945 (Stopped - Provider: Linda Otero RN) PRN Medication Order 03/05/2025 03/06/2025 03/07/2025 HYDROmorphone (DILAUDID) injection 0.25 mg (COMPLETED) 0.25 mg, Intravenous, Once as needed, moderate to severe pain, Starting on Thu03/07/25 at 2010, For 1 dose 2032 (Given - Provid er: Linda Otero RN) ondansetron (ZOFRAN) injection 4 mg (COMPLETED) 4 mg, Intravenous, Once as needed, nausea, vomiting, Starting on Thu03/07/25 at 1913, For 1 dose 1926 (Given - Provid er: Linda Otero RN) sodium chloride (PF) (NS) flush 5 mL(Linked Group 1) 5 mL, Intravenous, As needed, line care, Starting on Thu03/07/25 at 183 sodium chloride 0.9% (NS)(Linked Group 1) 0-150 mL/hr, Intravenous, As needed, To flush line after IV infusions when no maintenance IV ordered or a compatibility issue. Infuse 20ml at the same rate as the secondary infusion, Starting on Thu03/07/25 at 183, Run as Primary IV. NOT intended for KVO. Linked Groups Order Group 1: Insert peripheral IV (COMPLETED) ENOCH, Once, On Thu03/07/25 at 1840, For 1 occurrence And Saline lock IV (CANCELED) ENOCH, Once, On Thu03/07/25 at 1840, For 1 occurrence And sodium chloride (PF) (NS) flush 5 mLJump to med 5 mL, Intravenous, As needed, line care, Starting on Thu03/07/25 at 183 And sodium chloride 0.9% (NS)Jump to med 0-150 mL/hr, Intravenous, As needed, To flush line after IV infusions when no maintenance IV ordered or a compatibility issue. Infuse 20ml at the same rate as the secondary infusion, Starting on Thu03/07/25 at 1839, Run as Primary IV. NOT intended for KVO. 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
--- OUTSIDE RECORDS SUMMARY | 2025-03-10 17:35 | XMS_ITS | Encounter Summary ---
Author Organization [facility] Address [address] [place] [address] Care Team Providers Care Residential Youth Counselor Name Role Phone Skye Jones CNP Primary Care Provider [phone] Reason for Visit * Reason Comments Flank Pain Encounter Details Date Type Department Care Team ([facility] st Contact Info) Description 03/10/2025 5:35 PM EDT - 03/10/2025 9:00 PM EDT Emergency [facility] Emergency Department [address] [place] [id number] Rivera Edwards MD [address] [place] [address] Discharge Disposition: Home Social History Tobacco Use Types Packs/Day Years Used Date Smoking Tobacco: Never Smokeless Tobacco: Never Alcohol Use Standard Drinks/Week Comments Never 0 (1 standard drink = 0.6 oz pur e alcohol) [facility] Utilities Answer Date Recorded In the past 12 months has [employer], gas, oil, or water [employer] threatened to shut off services in your [...] any time in the past 12 m [facility], were you homeless or living in a detention (including now)? No 02/13/2025 Comments No Sex and Gender Information Value Date Recorded Sex Assigned at Not on file Legal Sex Female 8:07 AM EDT Gender Identity Female 07/08/2020 9:32 PM EST Sexual Orientation Straight 07/08/2020 9: 32 PM EST documented as of this encounter Last Filed Vital Signs Vital Sign Reading Time Taken Comments Blood Pressure 130/86 03/10/2025 7:37 PM EDT Pulse 79 03/10/2025 7:37 PM EDT Temperature 36.6 C (97.8 F) 03/10/2025 5:39 PM EDT Respiratory Rate 16 03/10/2025 7:31 PM EDT Oxygen Saturation 95% 03/10/2025 7:37 PM EDT Inhaled Oxygen Concentration - - Weight 122.5 kg (270 lb) 03/10/2025 5:39 PM EDT Height - - Body Mass Index 42.29 03/07/2025 6:25 PM EDT documented in this encounter Discharge Instructions * Discharge Instructions* Rivera Edwards MD - 03/10/2025 7:28 PM EDT Please follow up with urology and your primary care provider. Drink 10 doses of Miralax over 1 to 2 days (1 dose / hour). Afterwards, use approximately 2 scoops of MiraLAX a day. You can add dulcolax +/- mineral oil if needed Please return to the ER if any new or concerning symptoms. * Attachments The following attachments cannot be sent through Care Everywhere. * Hematuria (Ethiopian) * Constipation (Ethiopian) documented in this encounter Medications at Time [...] 60 tablet 5 naloxone (NARCAN) 4 mg/actuation Everest Administer 1 spray into one nostril for known or suspected opioid overdose. If patient worsens or does not respond, may repeat in 2-3 minutes. . 2 each 1 4 OLANZapine (ZYPREXA) 5 MG tablet Take 1 (one) tablet (5 mg total) by mouth 2 (two) times a day as needed . ondansetron (ZOFRAN-ODT) 4 MG disintegrating tablet Dissolve 1 (one) tablet (4 mg total) on top of tongue every 6 to 8 hours as needed for nausea . 20 tablet 5 oxyCODONE-acetamino phen (PERCOCET) 5-325 mg per tablet Take 1 (one) tablet by mouth every 6 (six) hours as needed for pain . pantoprazole (PROTONIX) 40 MG tablet Take [...] 10 tablet 12/06/2021 12:44 PM EDT 2 promethazine (PHENERGAN) 25 MG tablet Take 1 (one) tablet (25 mg total) by mouth every 6 (six) hours as needed for nausea . 15 tablet 5 rosuvastatin (CRESTOR) 40 MG tablet Take 1 (one) tablet (40 mg total) by mouth daily . tiZANidine (ZANAFLEX) 4 MG tablet Take 1 (one) tablet (4 mg total) by mouth 2 (two) times a day . 2 traZODone (DESYREL) 300 MG tablet Take 1 (one) tablet (300 mg total) by mouth nightly . 1 UltiCare Pen Needle 32 gauge x 32 Ndle USE 1 PEN NEEDLE 4 TIMES DAILY BEFORE MEAL(S) AND NIGHTLY 2 polyethylene glycol (GoLYTELY) 236-22.74-6.74 -5.86 gram solution Take 4,000 mL by mouth once for 1 dose . 4000 mL 5 03/10/20 25 promethazine (PHENERGAN) 25 MG suppository Insert 1 (one) suppository (25 mg total) into the rectum every 6 (six) hours as needed for nausea . 5 each 5 03/15/20 25 Mounjaro 7.5 mg/0.5 mL Pen 0.5 mL (7.5 mg total) by abdominal subcutaneous route once a week Thursday . 4 03/17/20 25 documented as of this encounter ED Notes * Melva Raya RN - 03/10/2025 8:14 PM EDT Pt was up to use the bathroom without difficulty. * Rivera Edwards MD - 03/10/2025 6:03 PM EDT [facility] EMERGENCY DEPARTMENT ATTENDING NOTE: NAME: Bree Carlton CSN: [id number] 49 y.o. PCP: Skye Jones CNP History: Chief Complaint: Flank Pain HPI: The history was obtained from the patient. Bree is a 49 y.o. female who presents with a chief complaint of Flank Pain. Patient has a history of DM GERD kidney stones and hysterectomy who states that for the past 3 days she has had right flank pain. She was seen at [facility], had a negative CT scan. She rates the pain 8/10 dull constant aching nothing makes the pain better or worse. She has urinary frequency but denies dysuria. She has nausea with frequent nonbloody bilious emesis. She denies diarrhea, last bowel movement was normal and yesterday. She denies fever or chills chest pain shortness of breath or other complaints. Furthermore, she states she has been taking Percocet, telling me she last took 1 this morning. She told the nurse she took one 2 hours ago. ED Course / Medical Decision Making: ED COURSE: 49-year-old female presents with right flank pain. Differentials include nephrolithiasis, pyelonephritis. I have ordered labs pain/nausea medication fluids for dehydration CT kidney stone.I did review her previous UA demonstrates glucosuria and hematuria. CT demonstrates no acute findings please refer to radiology report below. Upon my review she has retained stool in the right upper quadrant which is likely contributing to her pain. She is given instructions for MiraLAX cleanout. I will provide new prescriptions for Phenergan and Zofran if needed. She is given follow-up with PMD, urology as well as returninstructions. She verbalizes understanding and agreement with this plan After reviewing the items above, I did look at previous medical documentation, such as recent hospitalizations, office visits, and/or recent consultations with PCP/specialist. SDOH: Another factor that I considered in Bree's care was her Social Determinants of Health (SDOH). During this ED encounter, she did NOT appear to have any significant issues identified. Laboratory & Radiological Imaging (if done): Labs Reviewed URINALYSIS - Abnormal; Notable for the following components: Result Value Color, Urine Red (*) Clarity, Urine Cloudy (*) Glucose, Urine >=500 (*) Blood, Urine Large (*) RBCs, Urine >180 (*) All other components within normal limits Narrative: Microscopic examination is performed on all urinalysis samples and only positive findings are reported. The test for blood on the chemical analytic portion of urinalysis may also be positive due to hemoglobinuria and myoglobinuria and if red blood cells are present they are quantified by microscopic examination. CBC WITH AUTO DIFFERENTIAL - Abnormal; Notable for the following components: WBC 4.10 (*) MPV 9.3 (*) All other components within normal limits URINE AEROBIC CULTURE CBC AND DIFFERENTIAL Narrative: The following orders were created for panel order CBC w/ Diff. Procedure Abnormality Status --------- ------ CBC Auto Differential[[id number]] Abnormal Final result Please view results for these tests on the individual orders. BASIC METABOLIC PANEL CT Kidney Stone Final Result 1. Single nonobstructing right renal stone. No hydronephrosis or hydroureter seen on today's exam. 2. Prior cholecystectomy and hysterectomy noted. 3. No bowel obstruction. Normal appendix. Workstation ID: [id number] Clinical Impression: 1. Constipation, unspecified constipation type 2. Hematuria, unspecified type ROS: Review of Systems Constitutional: Negative for fever. Respiratory: Negative for shortness of breath. Cardiovascular: Negative for chest pain. Gastrointestinal: Positive for abdominal pain, nausea and vomiting. Negative for diarrhea. Genitourinary: Positive for flank pain and frequency. Negative for difficulty urinating and dysuria. Positives and pertinent negatives as per HPI. All other systems were reviewed and are negative. Physical Exam: Patient Vitals for the past 24 hrs: BP Temp Temp src Pulse Resp SpO2 Weight 03/10/25 1810 -- -- -- -- 16 -- -- 03/10/25 1739 (!) 150/80 97.8 ??F (36.6 ??C) Oral 99 16 95 % 122.5 kg (270 lb) Physical Exam Vitals and nursing note reviewed. Constitutional: Appearance: She is obese. Comments: Eyes are half open HENT: Head: Normocephalic and atraumatic. Nose: Nose normal. Mouth/Throat: Mouth: Mucous membranes are moist. Pharynx: Oropharynx is clear. Eyes: Conjunctiva/sclera: Conjunctivae normal. Pupils: Pupils are equal, round, and reactive to light. Cardiovascular: Rate and Rhythm: Normal rate and regular rhythm. Heart sounds: Normal heart sounds. Pulmonary: Effort: Pulmonary effort is normal. Breath sounds: Normal breath sounds. Abdominal: General: Abdomen is flat. Palpations: Abdomen is soft. Tenderness: There is right CVA tenderness. There is no guarding or rebound. Skin: General: Skin is warm and dry. Neurological: General: No focal deficit present. Mental Status: She is alert and oriented to person, place, and time. Comments: Appears slightly intoxicated Psychiatric: Mood and Affect: Mood normal. Behavior: Behavior normal. Procedures I did personally review Bree's past medical history, surgical history, social history, as well asfamily history (when relevant). In this case, I also oversaw the her drug management by reviewing her medication list, allergy list, as well as the medications that I prescribed during the ED course and/or recommended as an out-patient (including possible OTC medications such as acetaminophen, NSAIDs , etc). Her past medical problem list included: Active Ambulatory Problems Diagnosis Date Noted Generalized abdominal pain 08/22/2020 Chest pain 01/27/2021 Hematuria 02/01/2021 Condyloma acuminatum due to human papillomavirus (HPV) 08/26/2021 Hypotension 12/04/2021 Flank pain 02/24/2024 UTI (urinary tract infection) 04/03/2024 Acute pyelonephritis 06/12/2024 Pyelonephritis 01/06/2025 Kidney stones 02/13/2025 Resolved Ambulatory Problems Diagnosis Date Noted No Resolved Ambulatory Problems Past Medical History: Diagnosis Date Diabetes mellitus (HCC) Diabetes mellitus, type 2 (HCC) GERD (gastroesophageal reflux disease) History of kidney stones Hx: UTI (urinary tract infection) ED MEDICATIONS GIVEN: Medications sodium chloride 0.9% (NS) bolus 1,000 mL (1,000 mL Intravenous Not Given 03/10/251809) ondansetron (ZOFRAN) injection 4 mg (4 mg Intravenous Not Given 03/10/251809) HYDROmorphone (DILAUDID) injection 0.25 mg (0.25 mg Intravenous Not Given 03/10/251809) Disposition: ED Disposition ED Disposition Discharge Condition Stable Comment Bree Carlton discharged to home/self care in stable condition. New Prescriptions ondansetron (ZOFRAN-ODT) 4 MG disintegrating tablet Dissolve 1 (one) tablet (4 mg total) on top of tongue every 6 to 8 hours as needed for nausea . promethazine (PHENERGAN) 25 MG tablet Take 1 (one) tablet (25 mg total) by mouth every 6 (six) hours as needed for nausea . promethazine (PHENERGAN) 25 MG suppository Insert 1 (one) suppository (25 mg total) into the rectumevery 6 (six) hours as needed for nausea . PMHx: Past Medical History: Diagnosis Date Diabetes [...] LEG SURGERY ROTATOR CUFF REPAIR Right TONSILLECTOMY FAM. Hx: Family History Problem Relation Age of Onset Heart disease Father SOC. Hx: Social History [1] MEDs: Previous Medications Medication Sig albuterol 90 mcg/actuation [...] a week Thursday. naloxone (NARCAN) 4 mg/actuation Everest Administer 1 spray into one nostril for known or suspected opioid overdose. If patient worsens or does not respond, may repeat in 2-3 minutes. . OLANZapine (ZYPREXA) 5 MG tablet Take 1 (one) tablet (5 mg total) by mouth 2 (two) times a day as needed . oxyCODONE-acetaminophen (PERCOCET) 5-325 mg per tablet Take 1 (one) tablet by mouth every 6 (six) hours as needed for pain . pantoprazole (PROTONIX) 40 MG tablet Take 1 (one) tablet (40 mg total) by mouth daily . promethazine (PHENERGAN) 25 MG suppository Insert 1 (one) suppository (25 mg total) into the rectumevery 6 (six) hours as needed for nausea Do not take within 6 hours of your other phenergan . promethazine (PHENERGAN) 25 MG tablet Take [...] 4 TIMES DAILY BEFORE MEAL(S) AND NIGHTLY ALL: Allergies[2] Rivera Edwards MD ED Attending Physician [facility] EMERGENCY DEPARTMENT [1] Social History Socioeconomic History Marital status: Single Tobacco Use Smoking status: Never Smokeless tobacco: Never Vaping Use Vaping status: Never Used Substance and Sexual Activity Alcohol use: Never Drug use: Never Social Drivers of Health Food Insecurity: No Food Insecurity (02/25/2025) Received from [facility] Hunger Vital Sign Worried About Running Out of Food in the Last Year: Never true Ran Out of Food in the Last Year: Never true Transportation Needs: No Transportation Needs (02/25/2025) Received from [facility] PRAPARE - Transportation In the past 12 months, has lack of transportation kept you from medical appointments or from getting medications?: No In the past 12 months, has lack of transportation kept you from meetings, work, or from getting things needed for daily living?: No Housing Stability: Unknown (02/25/2025) Received from [facility] Housing Stability Vital Sign Unable to Pay [...] Comments) Pt states gives me nosebleeds (epistaxis) Rivera Edwards MD 03/10/251928 * Rachel Brown RN - 03/10/2025 5:35 PM EDT Pt to room 7. C/o right flank pain, vomiting x 4 days. Last dose of percocet 1500 today. States shewas here 3 days ago for these symptoms and they are not resolving. documented in this encounter Plan of Treatment Not on file documented as of this encounter Procedures Procedure Name Priority Date/Time Associated Diagnosis Comments CT KIDNEY STONE STAT 03/10/2025 6:31 PM EDT CBC WITH AUTO DIFFERENTIAL STAT 03/10/2025 6:11 PM EDT URINALYSIS STAT 03/10/2025 6:11 PM EDT CBC AND DIFFERENTIAL STAT 03/10/2025 6:11 PM EDT URINE AEROBIC CULTURE ENOCH 03/10/2025 6:11 PM EDT BASIC METABOLIC PANEL STAT 03/10/2025 6:11 PM EDT documented in this encounter Results * CT Kidney Stone (03/10/2025 6:31 PM EDT) Anatomical Region Laterality Modality Abdomen, Pelvis Computed Tomogra phy 03/10/2025 6:46 PM EDT Impressions 03/10/2025 6:52 PM EDT 1. Single nonobstructing right renal stone. No hydronephrosis or hydroureter seen on today's exam. 2. Prior cholecystectomy and hysterectomy noted. 3. No bowel obstruction. Normal appendix. Workstation ID: [id number] Narrative 03/10/2025 6:52 PM EDT EXAMINATION: CT KIDNEY STONE HISTORY: ORDERING SYSTEM PROVIDED HISTORY: Abdominal/flank pain, stone suspected, TECHNOLOGIST PROVIDED HISTORY: Illness/Other Reason for exam: Abdominal/flank pain, hx of kidney stones. pt is unable to raise left arm out of the way due to surgery Encounter Type: Initial Additional signs and symptoms: . ORDERING SYSTEM PROVIDED DIAGNOSIS CODES: COMPARISON: CT abdomen and pelvis 03/07/2025. TECHNIQUE: Dose reduction techniques were achieved by using automated exposure control and/or adjustment of mA and/or kV according to patient size and/or use of iterative reconstruction technique. Axial coronal and sagittal sequences from the lung bases to the upper thighs. CONTRAST: None. FINDINGS: The heart is normal in size. There is bibasilar linear atelectasis. The noncontrast liver, spleen and pancreas all appear normal. The gallbladder is surgically absent. There is no adrenal mass. There is a single right renal stone. There is no hydronephrosis or hydroureter. The urinary bladder is within normal limits. The uterus is surgically absent. The ovaries are not visualized and may be absent as well. There is no abnormal dilatation of the stomach. There is no small-bowel or colonic dilatation. There is a moderate colonic stool burden. The appendix is visualized and normal. There is no pneumoperitoneum or ascites. The abdominal aorta is nondilated. There is no acute bony pathology. Procedure Note Balnka Orellana MD - 03/10/2025 EXAMINATION: CT KIDNEY STONE HISTORY: ORDERING SYSTEM PROVIDED HISTORY: Abdominal/flank pain, stonesuspected, TECHNOLOGIST PROVIDED HISTORY: Illness/Other Reason for exam: Abdominal/flank pain, hx of kidney stones. pt is unableto raise left arm out of the way due to surgery Encounter Type: Initial Additional signs and symptoms: . ORDERING SYSTEM PROVIDED DIAGNOSIS CODES: COMPARISON: CT abdomen and pelvis 03/07/2025. TECHNIQUE: Dose reduction techniques were achieved by using automated exposurecontrol and/or adjustment of mA and/or kV according to patient size and/oruse of iterative reconstruction technique. Axial coronal and sagittal sequences from the lung bases to the upperthighs. CONTRAST: None. FINDINGS: The heart is normal in size. There is bibasilar linear atelectasis. The noncontrast liver, spleen and pancreas all appear normal. Thegallbladder is surgically absent. There is no adrenal mass. There is a single right renal stone. There is no hydronephrosis orhydroureter. The urinary bladder is within normal limits. The uterus is surgically absent. The ovaries are not visualized and maybe absent as well. There is no abnormal dilatation of the stomach. There is no small-bowelor colonic dilatation. There is a moderate colonic stool burden. Theappendix is visualized and normal. There is no pneumoperitoneum or ascites. The abdominal aorta isnondilated. There is no acute bony pathology. IMPRESSION: 1. Single nonobstructing right renal stone. No hydronephrosis orhydroureter seen on today's exam. 2. Prior cholecystectomy and hysterectomy noted. 3. No bowel obstruction. Normal appendix. Workstation ID: [id number] Rivera Edwards MD [facility] ORDERABLES Final Result * (ABNORMAL) CBC Auto Differential (03/10/2025 6:11 PM EDT) WBC 4.10(L) 4.50 - 11.00 K/mcL 03/10/2025 7:23 PM EDT LAB RBC 4.48 4.00 - 5.20 M/mcL 03/10/2025 7:23 PM EDT LAB Hemoglobin 13.0 12.0 - 16.0 g/dL 03/10/2025 7:23 PM EDT LAB Hematocrit 37.6 36.0 - 46.0 % 03/10/2025 7:23 PM EDT LAB MCV 83.9 80.0 - 100.0 fL 03/10/2025 7:23 PM EDT LAB MCH 29.0 26.0 - 34.0 pg 03/10/2025 7:23 PM EDT LAB MCHC 34.6 31.0 - 37.0 g/dL 03/10/2025 7:23 PM EDT LAB Platelets 178 150 - 400 K/mcL 03/10/2025 7:23 PM EDT LAB RDW - CV 13.0 11.6 - 14.8 % 03/10/2025 7:23 PM EDT LAB MPV 9.3(L) 9.4 - 12.4 fL 03/10/2025 7:23 PM EDT LAB Neutrophils 54.4 % 03/10/2025 7:23 PM EDT LAB Lymphocytes 32.0 % 03/10/2025 7:23 PM EDT LAB Monocytes 10.2 % 03/10/2025 7:23 PM EDT LAB Eosinophils 2.9 % 03/10/2025 7:23 PM EDT LAB Basophils 0.5 % 03/10/2025 7:23 PM EDT LAB IG Percent 0.00 % 03/10/2025 7:23 PM EDT LAB Comment:The IG parameter is the percentage of metamyelocytes, myelocytes and promyelocytes. An immature granulocyte count (IG) of 1% or more suggests the possibility of infection, an IG count of 3% is very likely related to an infection. Neutrophils Abs 2.23 1.70 - 7.00 K/mcL 03/10/2025 7:23 PM EDT LAB Lymphocytes Abs 1.31 0.90 - 4.00 K/mcL 03/10/2025 7:23 PM EDT LAB Monocytes Abs 0.42 0.30 - 0.90 K/mcL 03/10/2025 7:23 PM EDT LAB Eosinophils Abs 0.12 0.00 - 0.50 K/mcL 03/10/2025 7:23 PM EDT LAB Basophils Abs 0.02 0.00 - 0.30 K/mcL 03/10/2025 7:23 PM EDT LAB IG Absolute 0.00 0.00 - 0.30 K/mcL 03/10/2025 7:23 PM EDT LAB Blood BLOOD SPECIMEN / Unknown Venipuncture / Unknown 03/10/2025 6:11 PM EDT 03/10/2025 7:20 PM EDT Rivera Edwards MD LAB BLOOD ORDERABLES Final Res ult LAB [address] [place] [address] * Urine Aerobic Culture (03/10/2025 6:11 PM EDT) Culture < 10,000 CFU/mL of normal urogenital microbiota 03/12/2025 1:17 PM EDT [facility] Urine URINE SPECIMEN OBTAINED BY CLEAN CATCH PROCEDURE / Unknown Collection / Unknown 03/10/2025 6:11 PM EDT 03/10/2025 6:55 PM EDT Rivera Edwards MD MICROBIOLOGY - GENERAL ORDERAB LES Final Result Performing Organization Address City/[facility]/ZIP Co de Phone Number [facility] [address] [place] [address] * (ABNORMAL) Urinalysis (03/10/2025 6:11 PM EDT) Color, Urine Red(A) Colorless, Yellow 03/10/2025 7:07 PM EDT LAB Clarity, Urine Cloudy(A) Clear 03/10/2025 7:07 PM EDT LAB Specific [place] <=1.005 1.005 - 1.025 03/10/2025 7:07 PM EDT LAB pH, Urine 6.0 5.0 - 7.0 03/10/2025 7:07 PM EDT LAB Protein, Urine Negative Negative mg/dL 03/10/2025 7:07 PM EDT LAB Glucose, Urine >=500(A) Negative mg/dL 03/10/2025 7:07 PM EDT LAB Ketones, Urine Negative Negative mg/dL 03/10/2025 7:07 PM EDT LAB Bilirubin, Urine Negative Negative 03/10/20 25 7:07 PM EDT LAB Urobilinogen, Urine <2.0 <2.0 mg/dL 03/10/2025 7:07 PM EDT LAB Blood, Urine Large(A) Negative 03/10/2025 7:07 PM EDT LAB Nitrite, Urine Negative Negative 03/10/2025 7:07 PM EDT LAB Leukocyte Esterase, Urine Negative Negative 03/10/2025 7:07 PM EDT LAB WBCs, Urine 1 0 - 5 /hpf 03/10/2025 7:07 PM EDT LAB RBCs, Urine >180(H) 0 - 3 /hpf 03/10/2025 7:07 PM EDT LAB Bacteria, Urine None Seen None Seen /hpf 03/10/2025 7:07 PM EDT LAB Squamous Epithelial 3 0 - 4 /hpf 03/10/2025 7:07 PM EDT LAB Transitional Epithelial 1 0 - 1 /hpf 03/10/2025 7:07 PM EDT LAB Urine URINE SPECIMEN / Unknown Collection / Unknown 03/10/2025 6:11 PM EDT 03/10/2025 6:55 PM EDT Narrative LAB - 03/10/2025 7:07 PM EDT Microscopic examination is performed on all urinalysis samples and only positive findings are reported. The test for blood on the chemical analytic portion of urinalysis may also be positive due to hemoglobinuria and myoglobinuria and if red blood cells are present they are quantified by microscopic examination. us Rivera Edwards MD URINE ORDERABLES Final Result LAB [address] [place] [address] * (ABNORMAL) BMP (03/10/2025 6:11 PM EDT) Sodium 131(L) 135 - 145 mmol/L 03/10/2025 7:58 PM EDT LAB Potassium 4.6 3.5 - 5.1 mmol/L 03/10/2025 7:58 PM EDT LAB Chloride 92(L) 98 - 108 mmol/L 03/10/2025 7:58 PM EDT LAB Bicarbonate 24 21 - 32 mmol/L 03/10/2025 7:58 PM EDT LAB Anion Gap 20 10 - 20 mmol/L 03/10/2025 7:58 PM EDT LAB Glucose 646(HH) 65 - 99 mg/dL 03/10/2025 7:58 PM EDT LAB BUN 12 8 - 25 mg/dL 03/10/2025 7:58 PM EDT LAB Creatinine 0.78 0.40 - 1.10 mg/dL 03/10/2025 7:58 PM EDT LAB eGFR 93 >=60 mL/min/1.7 3 m2 03/10/2025 7:58 PM EDT LAB Comment:Estimated GFR was ca lculated using the 2020 CKD-EPI creatinine equation. BUN/Creatinine Ratio 15.4 10.0 - 20.0 03/10/2025 7:58 PM EDT LAB Calcium 9.5 8.4 - 10.2 mg/dL 03/10/2025 7:58 PM EDT LAB Blood BLOOD SPECIMEN / Unknown Venipuncture / Unknown 03/10/2025 6:11 PM EDT 03/10/2025 7:20 PM EDT Narrative LAB - 03/10/2025 7:58 PM EDT [facility] has implemented the eGFR calculation approach that does not have a coefficient for race that conforms to the NKF-ASN Task Force Recommendations. us Rivera Edwards MD LAB BLOOD ORDERABLES Final Res ult LAB [address] [place] [address] documented in this encounter Visit Diagnoses Diagnosis Constipation, unspecified constipation type- Primary Hematuria, unspecified type documented in this encounter Administered Medications Inactive Administered Medications - up to 3 most recent administrations Medication Order MAR Action Action Date Dose Rate Site HYDROmorphone (DILAUDID) injection 0.25 mg 0.25 mg, Intravenous, Once, On Thu03/10/25 at 1810, For 1 dose Given 03/10/2025 7:31 PM EDT 0.25 mg ondansetron (ZOFRAN) injection 4 mg 4 mg, Intravenous, Once, On Thu03/10/25 at 1805, For 1 dose Given 03/10/2025 7:31 PM EDT 4 mg sodium chloride 0.9% (NS) bolus 1,000 mL 1,000 mL, Intravenous, at 983.6 mL/hr, Once, On Thu03/10/25 at 1805, For 1 dose Restarted 03/10/2025 7:29 PM EDT 983 .6 mL/hr documented in this encounter Active and Recently Administered Medications Times are shown in EDT. Scheduled Medication Order 03/08/2025 03/09/2025 03/10/2025 HYDROmorphone (DILAUDID) injection 0.25 mg (COMPLETED) 0.25 mg, Intravenous, Once, On Thu03/10/25 at 1810, For 1 dose 1809 (Not Given - Pr ovider: Paulina Anderson RN - Reason: Loss of IV access)1930 (Given - Provider: Melva Raya RN) ondansetron (ZOFRAN) injection 4 mg (COMPLETED) 4 mg, Intravenous, Once, On Thu03/10/25 at 1805, For 1 dose 1809 (Not Given - Pr ovider: Paulina Anderson RN - Reason: Loss of IV access)1930 (Given - Provider: Melva Raya RN) sodium chloride 0.9% (NS) bolus 1,000 mL 1,000 mL, Intravenous, at 983.6 mL/hr, Once, On Thu03/10/25 at 1805, For 1 dose 0 (Not Given - Pr ovider: Paulina Anderson RN - Reason: Loss of IV access)1928 (Restarted - Provider: Melva Raya RN)2054 (Stopped - Provider: Melva Raya RN) documented in this encounter Additional Health Concerns Assessment Noted Time PHQ-2 Depression Total Score: 0 04/04/20 24 8:00 AM EDT documented as of this encounter Care Teams Residential Youth Counselor Relationship Specialty Start Date End Date Skye Jones CNP [address] [place] [address] PCP - General Nurse Practitioner 12/03/21 documented as of this encounter
--- OUTSIDE RECORDS SUMMARY | 2025-03-16 14:15 | XMS_ITS | Encounter Summary ---
Author Organization [facility] Address [address] [facility] [place] [address] Care Team Providers Care Bin Tripper Operator Name Role Phone Jaron Solis MD Primary Care Provider [phone] Reason for Visit * Reason Comments Follow-up Lt shoulder ARCR FTM C 11/11/24 Encounter Details Date Type Department Care Team (Late st Contact Info) Description 03/16/2025 2:15 PM EDT Office Visit [facility] [address] [place] [address] Omi Watkins DO [address] [place] [address] S/P arthroscopy of left shoulder (Primary Dx) Social History Tobacco Use Types [...] on file documented as of this encounter Last Filed Vital Signs Vital Sign Reading Time Taken Comments Blood Pressure - - Pulse - - Temperature - - Respiratory Rate - - Oxygen Saturation - - Inhaled Oxygen Concentration - - Weight 126 kg (277 lb) 03/16/2025 2:25 PM EDT Height 170.2 cm (5' 7 ) 03/16/2025 2:25 PM EDT Body Mass Index 43.38 03/16/2025 2:25 PM EDT documented in this encounter Progress Notes * Omi Watkins, DO - 03/16/2025 2:15 PM EDT Images from the original note were not included. @EMLANY@ Bree Carlton is a 49 y.o. female who presents for Follow-up of the Left Shoulder [place] [facility] [place] HPI: History of Present Illness The patient is a 49-year-old female who presents for evaluation 4 months status post left shoulder arthroscopy. She continues to attend physical therapy sessions but reports more absences than attendances due todiscomfort caused by the therapist's aggressive approach. She has been using a TENS unit for pain management. She is currently employed full- time and requires a note for sedentary work as her job involves standing and lifting tasks. She is scheduled to have her kidney stones dissolved at the [facility], although the exact date is yet to be confirmed. Recently, she experienced a septic kidney infection, which required hospitalization at [facility]. During this stay, she was administered Dilaudid, leading to an overdose that required resuscitation with narcan. She has had 8 visits to the ED and multiple admissions since her last visit with me in December. SUBJECTIVE: MEDICATIONS: Current Outpatient Medications Medication Instructions acetaminophen (TYLENOL EXTRA STRENGTH) 500 mg, Oral, Every 4 hours PRN albuterol HFA 90 mcg/act inhaler 2 puffs, Every 6 hours PRN ARIPiprazole (Abilify) 20 MG tablet cholecalciferol (VITAMIN D-3) 25 mcg, Weekly colesevelam (WELCHOL) 625 mg, 2 times daily with meals Continuous Glucose Core Filer (FreeStyle Myron 3 [place]) device Continuous Glucose Sensor (FreeStyle Myron 2 Sensor) [facility] [place] Drug [place] Unifine Pentips Plus 32G X 4 MM [facility] [place] DULoxetine (CYMBALTA) 60 mg, Daily fluticasone (Flonase) 50 MCG/ACT nasal spray gabapentin (NEURONTIN) 600 mg, 3 times daily hydrOXYzine pamoate (VISTARIL) 50 mg, Every 6 hours PRN insulin aspart (NOVOLOG, FIASP) 20 Units, 3 times daily insulin lispro (HumaLOG) 100 UNIT/ML injection Jardiance 25 mg, Daily Lantus SoloStar 100 UNIT/ML pen loratadine (CLARITIN) 10 mg, Daily meclizine (ANTIVERT) 25 mg, Every 8 hours PRN methocarbamol (ROBAXIN) 500 mg, 3 times daily metoprolol tartrate (LOPRESSOR) 25 mg Mounjaro 2.5 Units, Weekly OLANZapine (ZYPREXA) 5 mg, Nightly ondansetron (Zofran) 4 MG tablet TAKE 1 TABLET BY MOUTH EVERY 8 HOURS NEEDED EVERY 48 hours ondansetron ODT (Zofran-ODT) 4 MG disintegrating tablet DISSOLVE ONE TABLET on top OF tongue EVERY 6 TO 8 HOURS NEEDED for FOR NAUSEA pantoprazole (PROTONIX) 40 mg, Daily RT promethazine (Phenergan) 25 MG tablet rosuvastatin (CRESTOR) 20 mg, Daily tiZANidine (ZANAFLEX) 4 mg, 3 times daily traZODone (DESYREL) 200 mg, Nightly ALLERGIES: Allergies Allergen Reactions Fentanyl Hives, Itching, Rash and Unknown Other reaction(s): Hives, Hives/Urticaria Penicillins Hives, Swelling and Unknown Total body swelling- only injection, able to take oral amox Tolerates cefazolin Other reaction(s): Hives, Hives/Urticaria Ciprofloxacin Hives and Rash Other reaction(s): Hives/Urticaria Ketorolac Hives and Itching Other reaction(s): Hives, Hives/Urticaria Meperidine Hives Other reaction(s): Hives/Urticaria Meperidine Hcl Hives and Unknown Morphine Hives, Rash and Unknown Patient tolerates hydromorphone Other reaction(s): Hives, Hives/Urticaria, Unknown Reaction Nalbuphine Hives and Unknown Other reaction(s): Hives, Hives/Urticaria Azithromycin Charentais Melon (Serbian Melon) Hives and Swelling Ondansetron Other Aspirin Unknown Pt states gives me nosebleeds nosebleeds Pt states gives me nosebleeds nosebleeds nosebleeds SURGICAL HISTORY: Past Surgical History: Procedure Laterality Date CARPAL TUNNEL RELEASE Bilateral HYSTERECTOMY KNEE SURGERY Right [place]/25/[place] [facility] [place]. Omi Watkins LEG SURGERY Right PLANTAR FASCIA RELEASE SHOULDER SURGERY Left 11/11/2024 [place] [facility] [place] [facility] [place]NA TONSILLECTOMY TRIGGER FINGER RELEASE Right 03/24/2022 [facility]- JAB TRIGGER FINGER RELEASE Left 09/01/2022 [facility]-JAB TRIGGER FINGER RELEASE Left 01/05/2023 Thumb-JAB UMBILICAL HERNIA REPAIR FAMILY HISTORY: Family History Problem Relation Name Age of Onset Hypertension Mother Hypertension Father Rich Heart disease Father Rich Cancer Father Rich SOCIAL HISTORY: Social History Tobacco Use Smoking status: Never Smokeless tobacco: Never Vaping Use Vaping status: Never Used Substance Use Topics Alcohol use: Never Comment: caffeine intake: coffee, tea Drug use: Never Depression: Not at risk (04/04/2024) Received from [facility] PHQ-2 PHQ-2 Total Score: 0 REVIEW OF SYMPTOMS: Review of Systems The review of systems, history and current medications list are all reviewed today. OBJECTIVE: Visit Vitals Ht 5' 7 Wt 277 lb BMI 43.38 kg/m?? OB Status Unknown Smoking Status Never BSA 2.44 m?? Physical Exam Alert and oriented, no acute distress. Mood and affect are appropriate. Portal sites on the left shoulder well healed. Left shoulder: Active elevation of the arm is about 45 degrees. Abduction is slightly better at 60 degrees. Passive forward elevation is around 130 degrees and passive abduction is 90 degrees. External rotation reaches 75 degrees. With the elbow at the side, external rotation is 45 degrees. Internal rotation extends to the upper buttocks. Others: KT tape is in place. Ortho Exam Results ASSESSMENT AND PLAN: I reviewed the history, physical exam, diagnostic studies, and diagnosis with the patient. Assessment & Plan 1. Post-operative status following left shoulder arthroscopy: Her range of motion is satisfactory, but active movement remains suboptimal. The healing process appears to be prolonged, potentially due to elevated A1c levels and other health issues. Advised to utilize the TENS unit during work hours. Samples of Journavx were provided, with instructions to take 2 pills initially, followed by 1 pill every 12 hours until completion. A note for sedentary work starting 03/17/2025 will be provided. Follow-up: In 2 months. There are no diagnoses linked to this encounter. Omi Watkins D.O. Attestation This note was created using voice recognition through [employer] artificial intelligence. documented in this encounter Plan of Treatment Upcoming Encounters Date Type Department Care Team (Late st Contact Info) Description 05/18/2025 8:45 AM EST Office Visit [facility] [address] [place] [id number] Omi Watkins DO [address] [place] [address] documented as of this encounter Visit Diagnoses Diagnosis S/P arthroscopy of left shoulder- Primary documented in this encounter Care Teams Bin Tripper Operator Relationship Specialty Start Date End Date Jaron Solis MD [address] [place] [address] PCP - General Family Medicine 01/15/23 documented as of this encounter
--- OUTSIDE RECORDS SUMMARY | 2025-03-17 10:06 | XMS_ITS | Encounter Summary ---
Author Organization [facility] Address [address] [place] [address] Care Team Providers Care Slate Splitter Name Role Phone Skye Jones CNP Primary Care Provider [phone] Reason for Visit * Reason Comments Flank Pain Emesis Encounter Details Date Type Department Care Team ([facility] st Contact Info) Description 03/17/2025 10:06 AM EDT - 03/17/2025 5:18 PM EDT Emergency [facility] Emergency Department [address] [place] [id number] Suhail Salazar MD [address] [address] Discharge Disposition: Home Social History Tobacco Use Types Packs/Day Years Used Date Smoking Tobacco: Never Smokeless Tobacco: Never Alcohol Use Standard Drinks/Week Comments Never 0 (1 standard drink = 0.6 oz pur e alcohol) [facility] Utilities Answer Date Recorded In the past 12 months has [employer], gas, oil, or water [employer] threatened to shut off services in your [...] any time in the past 12 m [facility], were you homeless or living in a assisted (including now)? No 02/13/2025 Comments No Sex and Gender Information Value Date Recorded Sex Assigned at Not on file Legal Sex Female 8:07 AM EDT Gender Identity Female 07/08/2020 9:32 PM EST Sexual Orientation Straight 07/08/2020 9: 32 PM EST documented as of this encounter Last Filed Vital Signs Vital Sign Reading Time Taken Comments Blood Pressure 119/74 03/17/2025 4:00 PM EDT Pulse 117 03/17/2025 4:00 PM EDT Temperature 37.1 C (98.8 F) 03/17/2025 10:07 AM EDT Respiratory Rate 16 03/17/2025 4:03 PM EDT Oxygen Saturation 93% 03/17/2025 4:00 PM EDT Inhaled Oxygen Concentration - - Weight 122.5 kg (270 lb) 03/17/2025 10:07 AM EDT Height 170.2 cm (5' 7 ) 03/17/2025 10:07 AM EDT Body Mass Index 42.29 03/17/2025 10:07 AM EDT documented in this encounter Discharge Instructions * Discharge Instructions* Suhail Salazar MD - 03/17/2025 3:40 PM EDT Take your medications as prescribed, including the insulin. Consider setting a reminder on your phone. Use the phenergan suppositories as needed. Stop the mounjaro unless your PCP or specialist says otherwise. Stay well hydrated. * Attachments The following attachments cannot be sent through Care Everywhere. * Hyperglycemia: General Info (Hong Konger) * Nausea and Vomiting ([place] Konger) * Abdominal Pain ([place] Konger) documented in this encounter Medications at Time of Discharge albuterol 90 mcg/actuation inhaler Inhale 2 (two) puffs every 6 (six) hours as needed for wheezing . ARIPiprazole (ABILIFY) 20 MG tablet Take 1 (one) tablet (20 mg total) by mouth nightly . blood-glucose meter kit 1 kit by Other route 4 (four) times a day before meals and nightly . 06/19/2021 DULoxetine (CYMBALTA) 60 MG capsule Take 1 (one) capsule (60 mg total) by mouth 2 (two) times a day . 12/10/2022 hydrOXYzine (VISTARIL) 50 MG capsule Take 1 [...] a day as needed for nausea . metoclopramide (REGLAN) 10 MG tablet Take 1 (one) tablet (10 mg total) by mouth 4 (four) times a day as needed (N/V) . 12 tablet 03/17/2025 metoprolol tartrate (LOPRESSOR) 25 MG tablet Take 1 (one) tablet (25 mg total) by mouth 2 (two) times a day . 60 tablet 02/17/2025 naloxone (NARCAN) 4 mg/actuation [place] Administer 1 spray into one nostril for known or suspected opioid overdose. If patient worsens or does not respond, may repeat in 2-3 minutes. . 2 each 1 02/28/2024 OLANZapine (ZYPREXA) 5 MG tablet Take 1 (one) tablet (5 mg total) by mouth 2 (two) times a day as needed . oxyCODONE-acetam inophen (PERCOCET) 5-325 mg per tablet Take 1 [...] of your other phenergan . 12 suppository 03/07/2025 promethazine (PHENERGAN) 25 MG tablet Take 1 (one) tablet (25 mg total) by mouth every 6 (six) hours as needed for nausea . 10 tablet 12/06/2021 12:44 PM EDT 12/06/2021 promethazine (PHENERGAN) 25 MG tablet Take 1 (one) tablet (25 mg total) by mouth every 6 (six) hours as needed for nausea . 15 tablet 03/10/2025 rosuvastatin (CRESTOR) 40 MG tablet Take 1 (one) tablet (40 mg total) by mouth daily . tiZANidine (ZANAFLEX) 4 MG tablet Take 1 (one) tablet (4 mg total) by mouth 2 (two) times a day . 11/27/2021 traZODone (DESYREL) 300 MG tablet Take 1 (one) tablet (300 mg total) by mouth nightly . 05/22/2021 UltiCare Pen Needle 32 gauge x /32 Ndle USE 1 PEN NEEDLE 4 TIMES DAILY BEFORE MEAL(S) AND NIGHTLY 10/25/2021 documented as of this encounter ED Notes * Suhail Salazar MD - 03/17/2025 10:41 AM EDT Images from the original note were not included. ED PROVIDER NOTE [facility] EMERGENCY DEPARTMENT NAME: Bree Carlton AGE: 49 y.o. : 1975 VISIT DATE: 03/17/2025 CSN: [id number] PCP: Skye Jones CNP Chief Complaint Patient presents with Flank Pain Emesis 49-year-old female with history of type 2 diabetes, poorly controlled blood sugars, GERD, history of kidney stones, history of UTI, history of hematuria, and a pharmacy report for controlled substances that shows 52 prescriptions, 19 providers, 5 pharmacies, presenting to the emergency room with complaint of nausea vomiting, flank pain. Staff states that she has told them on past visits she will only accept IV form dilaudid for pain control. Seems she left [place] yesterday AMA with diagnosis of drug seeking and malingering, can't see further details. Prior to that it seems she had a different routine visit for orthopedics, can see any further details on that. CT scan from few days ago was nonacute except for some possible constipation. Patient states she has been vomiting for weeks, she states she has been having this flank pain and hematuria for years and the same way in the same place. Patient states she has not had any Percocet in 2 weeks. However on her ED visit on the she states that she had taken at that day. Patient notes she used to see pain management so these were leftover pills from that, but she was discharged from that practice due to suicidal ideation episode. She was told she can come back anytime though she says. She has been trying oral Zofran and Phenergan but not tolerating it. She does have Phenergan suppositories but has not yet tried to use it. She has also not had any of her insulin today. She says shenormally only uses it once per day instead of TID as she just forgets. No known fevers, rigors, hematemesis, melena, hematochezia, cough or cold symptoms. Emesis has beennonbilious nonbloody. Past Medical History: Diagnosis Date Diabetes mellitus (HCC) Diabetes mellitus, type 2 (HCC) Flank pain GERD (gastroesophageal reflux disease) History of kidney stones Hx: UTI (urinary tract infection) Past Surgical History: Procedure Laterality Date ADENOIDS CARPAL TUNNEL RELEASE Bilateral CHOLECYSTECTOMY CYSTO RETRO STONE MANIPULATION STENT INSERTION Right 01/30/2021 Procedure: CYSTOSCOPY WITH STENT URETEROSCOPY WITH HOLMIUM LASER; Surgeon: Aleks Barbosa MD; Location: [facility]; Service: Urology CYSTO URETERAL STENT REMOVAL 02/06/2021 [...] mouth 2 (two) times a day . naloxone (NARCAN) 4 mg/actuation [place] Administer 1 spray into one nostril for [...] 8 hours as needed for nausea . oxyCODONE-acetaminophen (PERCOCET) 5-325 mg per tablet [...] . UltiCare Pen Needle 32 gauge x 32 Ndle USE 1 PEN NEEDLE 4 TIMES DAILY BEFORE MEAL(S) AND NIGHTLY [DISCONTINUED] Mounjaro 7.5 mg/0.5 mL Pen 0.5 mL (7.5 mg total) by abdominal subcutaneous route once a week Thursday . Allergies[2] Review of Systems Patient Vitals for the past 24 hrs: BP Temp Temp src Pulse Resp SpO2 Height Weight 03/17/25 1603 -- -- -- -- 16 -- -- -- 03/17/25 1600 119/74 -- -- (!) 117 16 93 % -- -- 03/17/25 1430 (!) 149/80 -- -- (!) 122 16 95 % -- -- 03/17/25 1300 120/80 -- -- (!) 124 16 94 % -- -- 03/17/25 1244 (!) 146/57 -- -- (!) 123 16 96 % -- -- 03/17/25 1130 132/78 -- -- (!) 127 18 94 % -- -- 03/17/25 1119 133/88 -- -- -- -- -- -- -- 03/17/25 1118 -- -- -- (!) 131 16 94 % -- -- 03/17/25 1007 137/84 98.8 ??F (37.1 ??C) Oral (!) 132 18 97 % 5' 7 122.5 kg (270 lb) Physical Exam Vitals and nursing note reviewed. Constitutional: General: She is not in acute distress. Appearance: Normal appearance. She is not ill-appearing. Comments: Well appearing and comfortable. Able to speak easily and comfortably HENT: Head: Normocephalic and atraumatic. Mouth/Throat: Mouth: Mucous membranes are moist. Pharynx: Oropharynx is clear. Eyes: Extraocular Movements: Extraocular movements intact. Cardiovascular: Rate and Rhythm: Regular rhythm. Tachycardia present. Pulses: Normal pulses. Heart sounds: Normal heart sounds. Musculoskeletal: General: No deformity (obvious). Cervical back: Normal range of motion and neck supple. No rigidity. Pulmonary: Effort: Pulmonary effort is normal. Breath sounds: Normal breath sounds. Abdominal: General: There is no distension. Palpations: Abdomen is soft. Tenderness: There is abdominal tenderness (right lateral back and flank). There is no guarding or rebound. Skin: General: Skin is warm and dry. Neurological: Mental Status: She is alert and oriented to person, place, and time. Mental status is at baseline. Psychiatric: Mood and Affect: Mood normal. Behavior: Behavior normal. Laboratory & Radiographic Imaging (if done): Results for orders placed or performed during the hospital encounter of 03/17/25 BMP Result Value Ref Range Sodium 131 (L) 135 - 145 mmol/L Potassium 4.3 3.5 - 5.1 mmol/L Chloride 90 (L) 98 - 108 mmol/L Bicarbonate 25 21 - 32 mmol/L Anion Gap 20 10 - 20 mmol/L Glucose 720 (CH) 65 - 99 mg/dL BUN 9 8 - 25 mg/dL Creatinine 0.76 0.40 - 1.10 mg/dL eGFR 96 >=60 mL/min/1.73 m2 BUN/Creatinine Ratio 11.8 10.0 - 20.0 Calcium 10.1 8.4 - 10.2 mg/dL Urinalysis Result Value Ref Range Color, Urine Light Red (A) Colorless, Yellow Clarity, Urine Cloudy (A) Clear Specific [place] 1.010 1.005 - 1.025 pH, Urine 7.5 (H) 5.0 - 7.0 Protein, Urine Negative Negative mg/dL Glucose, Urine >=500 (A) Negative mg/dL Ketones, Urine Trace (A) Negative mg/dL Bilirubin, Urine Negative Negative Urobilinogen, Urine <2.0 <2.0 mg/dL Blood, Urine Large (A) Negative Nitrite, Urine Negative Negative Leukocyte Esterase, Urine Negative Negative WBCs, Urine 1 0 - 5 /hpf RBCs, Urine >180 (H) 0 - 3 /hpf Bacteria, Urine Rare (A) None Seen /hpf Squamous Epithelial 2 0 - 4 /hpf Urine Drug Screen Result Value Ref Range [...] Detected Fentanyl, Ur None Detected None Detected POC Glucose Result Value Ref Range Glucose hi 65 - 99 mg/dL POC Glucose Result Value Ref Range Glucose 477 (A) 65 - 99 mg/dL POC Venous Blood Gases Result Value Ref Range pH, Venous 7.44 (H) 7.32 - 7.42 pCO2, [place] 42.7 41.0 - 51.0 mm Hg pO2, [place] 42 (H) 25 - 40 mm Hg Base Excess, [place]illy 4 (H) -2 - 2 HCO3, [place] 28.7 (H) 24.0 - 28.0 mmol/L O2 Sat, [place]illy 79.0 (H) 40.0 - 70.0 % Hemoglobin 14.3 12.0 - 16.0 g/dL Hematocrit 42 36 - 46 % POC Glucose Result Value Ref Range Glucose >500 (CH) 65 - 99 mg/dL POC Glucose Result Value Ref Range Glucose 477 (CH) 65 - 99 mg/dL CBC Auto Differential Result Value Ref Range WBC 4.52 4.50 - 11.00 K/mcL RBC 5.00 4.00 - 5.20 M/mcL Hemoglobin 14.3 12.0 - 16.0 g/dL Hematocrit 41.4 36.0 - 46.0 % MCV 82.8 80.0 - 100.0 fL MCH 28.6 26.0 - 34.0 pg MCHC 34.5 31.0 - 37.0 g/dL Platelets 211 150 - 400 K/mcL RDW - CV 13.4 11.6 - 14.8 % MPV 9.4 9.4 - 12.4 fL Neutrophils 56.2 % Lymphocytes 30.3 % Monocytes 11.1 % Eosinophils 1.3 % Basophils 0.9 % IG Percent 0.20 % Neutrophils Abs 2.54 1.70 - 7.00 K/mcL Lymphocytes Abs 1.37 0.90 - 4.00 K/mcL Monocytes Abs 0.50 0.30 - 0.90 K/mcL Eosinophils Abs 0.06 0.00 - 0.50 K/mcL Basophils Abs 0.04 0.00 - 0.30 K/mcL IG Absolute 0.01 0.00 - 0.30 K/mcL No orders to display Procedures Medical Decision Making 49-year-old female presenting to the emergency room with acute on chronic nausea vomiting and acuteon chronic back/flank abdominal pain. Wondering if her Mounjaro, frequent opiate use, poorly controlled diabetes, is contributing to the cause of her nausea vomiting. Opiate withdrawal is also a possibility. Told the patient that we will not be using any opiates today. Workup showed significant hyperglycemia otherwise unremarkable. No sign of HON K or DKA. After 2 L of fluid and half her regular dose of insulin, blood sugars markedly improved. Tachycardia still present patient states it is from her pain. She has a multitude of allergies including to NSAIDs which would have been first-line. Unclear if there is drug-seeking, opiate withdrawal. It seems very unlikely that there is any pulmonary embolism, ACS, dysrhythmia, sepsis, acute surgical process. Patient notes all the pain nausea vomiting is chronic for years and today is no different. She does not want to pursue further workup of the heart rate. Giving her single tablet of Percocet has not encouraged much euphoria as parenteral route. In talking with her more than what is different is that 1 week ago she ran out of Percocet that shehad been taking twice a day for months. Shortly after Percocet heart rate is started to decline. Coming down as low as 102 until interacting with her and then it goes up again. Offered admission to the patient given her heart rate and nausea and vomiting, but she declines. She does seem to still have decision-making capacity. She continues to be very confident her heart rate is just from her pain as it has been many times before. She denies any new or different symptoms like chest discomfort, sob, syncope, near syncope. Strongly encouraged her to start taking her medications as prescribed including her insulin and Phenergan suppositories. Strongly encouraged her to follow-up closely with PCP and GI and her urologistas she has yet to do any of that. Also, telling her to stop the Mounjaro as she is still taking it. Patient is comfortable with, and understands, the plan for discharge, return signs, outpatient follow up closely, symptomatic care, the differential considerations along with likelihoods of those considerations, and the findings of the visit today. Pharmacist called to discuss new Rx with Phenergan still active due to possible EPS. Going to continue the meds as they are PRN and asked pharmacist to educate her on that risk and which meds to stopif it occurs. She will. . . Clinical Impression: 1. Nausea & vomiting 2. Abdominal pain, unspecified abdominal location 3. Acute back pain 4. Hematuria, unspecified type 5. Hyperglycemia ED Disposition ED Disposition Discharge Condition Stable Comment Bree Carlton discharged to home/self care in stable condition. Follow-up Information 1. Skye Jones CNP. Specialty: Nurse Practitioner Why: enoch for an appointment within 3 days., Follow up sooner for any problems or concerns [id number] [facility] [id number] 2. Your urologist. Why: enoch for an appointment within 3 days., Follow up sooner for any problems or concerns 3. Your GI doctor. 4. Your pain management doctor. Contact information for after-discharge care Follow-up information has not been specified. New Prescriptions metoclopramide (REGLAN) 10 MG tablet Take 1 (one) tablet (10 mg total) by mouth 4 (four) times a day as needed (N/V) . Discontinued Medications Disp Refills Start End Mounjaro 7.5 mg/0.5 mL Pen -- -- 06/08/2024 03/17/2025 Class: Historical Med Suhail Salazar MD 03/17/25 1637 [1] Social History Socioeconomic History Marital status: Single Tobacco Use Smoking status: Never Smokeless tobacco: Never Vaping Use Vaping status: Never Used Substance and Sexual Activity Alcohol use: Never Drug use: Never Social Drivers of Health Food Insecurity: No Food Insecurity (02/25/2025) Received from [facility] Hunger Vital Sign Worried About Running Out of Food in the Last Year: Never true Ran Out of Food in the Last Year: Never true Transportation Needs: No Transportation Needs (02/25/2025) Received from [facility] PRAPARE - Transportation In the past 12 months, has lack of transportation kept you from medical appointments or from getting medications?: No In the past 12 months, has lack of transportation kept you from meetings, work, or from getting things needed for daily living?: No Housing Stability: Unknown (02/25/2025) Received from [facility] Housing Stability Vital Sign Unable [...] 04/05/24-per Dr. Marlow, pt tolerates cefadroxil 3:55pm Azithromycin Hives Melon Swelling Aspirin Other (See Comments) Pt states gives me nosebleeds (epistaxis) Suhail Salazar MD 03/17/252001 * Vaishali Arango RN - 03/17/2025 10:06 AM EDT Pt c/o R sided flank pain and emesis a few days Pt has been taking Tylenol at home for symptoms. documented in this encounter Plan of Treatment Not on file documented as of this encounter Procedures Procedure Name Priority Date/Time Associated Diagnosis Comments POC GLUCOSE Timed 03/17/2025 2:27 PM EDT POC GLUCOSE - RALS Routine 03/17/2025 2: 26 PM EDT POC GLUCOSE Timed 03/17/2025 1:25 PM EDT POC GLUCOSE - RALS Routine 03/17/2025 1: 24 PM EDT POC VENOUS BLOOD GASES - RALS Routine 03/17/2025 11:20 AM EDT OBTAIN VENOUS BLOOD GASES AND PERFORM STAT 03/17/2025 11:12 AM EDT CBC WITH AUTO DIFFERENTIAL STAT 03/17/2025 11:12 AM EDT CBC AND DIFFERENTIAL STAT 03/17/2025 11:12 AM EDT BASIC METABOLIC PANEL STAT 03/17/2025 11:12 AM EDT DRUGS OF ABUSE SCREEN, URINE STAT 03/17/2025 11:07 AM EDT URINALYSIS STAT 03/17/2025 11:07 AM EDT URINE AEROBIC CULTURE ENOCH 03/17/2025 11:07 AM EDT documented in this encounter Results * (ABNORMAL) POC Glucose (03/17/2025 2:27 PM EDT) Glucose 477(A) 65 - 99 mg/dL Blood 03/17/2025 2:27 PM EDT Suhail Salazar MD POINT OF CARE TEST ORDERABLES Fi nal Result * (ABNORMAL) POC Glucose (03/17/2025 2:26 PM EDT) Glucose 477(HH) 65 - 99 mg/dL 03/17/2025 2:27 PM EDT LAB Blood BLOOD SPECIMEN / Unknown 03/17/2025 2:26 PM EDT 03/17/2025 2:27 PM EDT Narrative LAB - 03/17/2025 2:27 PM EDT Critical result acted upon time of test. Test performed at bedside. [facility] POCT ORDERABLES - DE VICE Final Result LAB [address] [place] [address] * POC Glucose (03/17/2025 1:25 PM EDT) Glucose hi 65 - 99 mg/dL Blood 03/17/2025 1:25 PM EDT Suhail Salazar MD POINT OF CARE TEST ORDERABLES Fi nal Result * (ABNORMAL) POC Glucose (03/17/2025 1:24 PM EDT) Glucose >500(HH) 65 - 99 mg/dL 03/17/2025 1:25 PM EDT LAB Blood BLOOD SPECIMEN / Unknown 03/17/2025 1:24 PM EDT 03/17/2025 1:25 PM EDT Narrative LAB - 03/17/2025 1:25 PM EDT Critical result acted upon time of test. Test performed at bedside. [facility] POCT ORDERABLES - DE VICE Final Result Performing Organization Address City/[facility]/ZIP Co de Phone Number LAB [address] [place] [address] * (ABNORMAL) POC Venous Blood Gases (03/17/2025 11:20 AM EDT) pH, Venous 7.44(H) 7.32 - 7.42 03/17/2025 11:22 AM EDT LAB pCO2, [place] 42.7 41.0 - 51.0 mm Hg 03/17/2025 11:22 AM EDT LAB pO2, [place] 42(H) 25 - 40 mm Hg 03/17/2025 11:22 AM EDT LAB Base Excess, [place] 4(H) -2 - 2 03/17/2025 11:22 AM EDT LAB HCO3, [place] 28.7(H) 24.0 - 28.0 mmol/L 03/17/2025 11:22 AM EDT LAB O2 Sat, [place] 79.0(H) 40.0 - 70.0 % 03/17/2025 11:22 AM EDT LAB Hemoglobin 14.3 12.0 - 16.0 g/dL 03/17/2025 11:22 AM EDT LAB Hematocrit 42 36 - 46 % 03/17/2025 11:22 AM EDT LAB Blood BLOOD SPECIMEN / Unknown 03/17/2025 11:20 AM EDT 03/17/2025 11:22 AM EDT [facility] Emergency [facility] POCT ORDERABLES - DE VICE Final Result Performing Organization Address City/[facility]/ZIP Co de Phone Number LAB [address] [place] [address] * CBC Auto Differential (03/17/2025 11:12 AM EDT) [facility] WBC 4.52 4.50 - 11.00 K/mcL 03/17/2025 11:19 AM EDT LAB RBC 5.00 4.00 - 5.20 M/mcL 03/17/2025 11:19 AM EDT LAB Hemoglobin 14.3 12.0 - 16.0 g/dL 03/17/2025 11:19 AM EDT LAB Hematocrit 41.4 36.0 - 46.0 % 03/17/2025 11:19 AM EDT LAB MCV 82.8 80.0 - 100.0 fL 03/17/2025 11:19 AM EDT LAB MCH 28.6 26.0 - 34.0 pg 03/17/2025 11:19 AM EDT LAB MCHC 34.5 31.0 - 37.0 g/dL 03/17/2025 11:19 AM EDT LAB Platelets 211 150 - 400 K/mcL 03/17/2025 11:19 AM EDT LAB RDW - CV 13.4 11.6 - 14.8 % 03/17/2025 11:19 AM EDT LAB MPV 9.4 9.4 - 12.4 fL 03/17/2025 11:19 AM EDT LAB Neutrophils 56.2 % 03/17/2025 11:19 AM EDT LAB Lymphocytes 30.3 % 03/17/2025 11:19 AM EDT LAB Monocytes 11.1 % 03/17/2025 11:19 AM EDT LAB Eosinophils 1.3 % 03/17/2025 [facility] Basophils 0.9 % 03/17/2025 [facility] IG Percent 0.20 % 03/17/2025 11:19 AM EDT LAB Comment:The IG parameter is the percentage of metamyelocytes, myelocytes and promyelocytes. An immature granulocyte count (IG) of 1% or more suggests the possibility of infection, an IG count of 3% is very likely related to an infection. Neutrophils Abs 2.54 1.70 - 7.00 K/mcL 03/17/2025 11:19 AM EDT LAB Lymphocytes Abs 1.37 0.90 - 4.00 K/mcL 03/17/2025 11:19 AM EDT LAB Monocytes Abs 0.50 0.30 - 0.90 K/mcL 03/17/2025 11:19 AM EDT LAB Eosinophils Abs 0.06 0.00 - 0.50 K/mcL 03/17/2025 11:19 AM EDT LAB Basophils Abs 0.04 0.00 - 0.30 K/mcL 03/17/2025 11:19 AM EDT LAB IG Absolute 0.01 0.00 - 0.30 K/[facility] 03/17/2025 11:19 AM EDT LAB Blood BLOOD SPECIMEN / Unknown Venipuncture / Unknown 03/17/2025 11:12 AM EDT 03/17/2025 11:16 AM EDT Suhail Salazar MD LAB BLOOD ORDERABLES Final Resul t Performing Organization Address City/[facility] Co de Phone Number LAB [address] [place] [address] * Obtain venous blood gases and perform (03/17/2025 11:12 AM EDT) Blood BLOOD SPECIMEN / Unknown Venipuncture / Unknown 03/17/2025 11:12 AM EDT 03/17/2025 11:16 AM EDT Suhail Salazar MD LAB BLOOD ORDERABLES Final Resul t Performing Organization Address [facility] Co de Phone Number LAB [address] [place] [address] * (ABNORMAL) BMP (03/17/2025 11:12 AM EDT) Sodium 131(L) 135 - 145 mmol/L 03/17/2025 11:48 AM EDT LAB Potassium 4.3 3.5 - 5.1 mmol/L 03/17/2025 11:48 AM EDT LAB Chloride 90(L) 98 - 108 mmol/L 03/17/2025 11:48 AM EDT LAB Bicarbonate 25 21 - 32 mmol/L 03/17/2025 11:48 AM EDT LAB Anion Gap 20 10 - 20 mmol/L 03/17/2025 11:48 AM EDT LAB Glucose 720(HH) 65 - 99 mg/dL 03/17/2025 11:48 AM EDT LAB BUN 9 8 - 25 mg/dL 03/17/2025 11:48 AM EDT LAB Creatinine 0.76 0.40 - 1.10 mg/dL 03/17/2025 11:48 AM EDT LAB eGFR 96 >=60 mL/min/1.7 3 m2 03/17/2025 11:48 AM EDT LAB Comment:Estimated GFR was ca lculated using the 2020 CKD-EPI creatinine equation. BUN/Creatinine Ratio 11.8 10.0 - 20.0 03/17/2025 11:48 AM EDT LAB Calcium 10.1 8.4 - 10.2 mg/dL 03/17/2025 11:48 AM EDT LAB Blood BLOOD SPECIMEN / Unknown Venipuncture / Unknown 03/17/2025 11:12 AM EDT 03/17/2025 11:16 AM EDT Narrative LAB - 03/17/2025 11:48 AM EDT [facility] has implemented the eGFR calculation approach that does not have a coefficient for race that conforms to the NKF-ASN Task Force Recommendations. us Suhail Salazar MD LAB BLOOD ORDERABLES Final Resul t LAB [address] [place] [address] * Urine Drug Screen (03/17/2025 11:07 AM EDT) [facility] Amphetamine Screen, Urine None Detected None Detected 03/17/2025 11:45 AM EDT LAB Comment:Urine Amphetamine Cu toff: < 1000 ng/mL = None Detected Barbiturate Screen, Urine None Detected None Detected 03/17/2025 11:45 AM EDT LAB Comment:Urine Barbiturates C utoff: < 200 ng/mL = None Detected Benzodiazepine Screen, Urine None Detected None Detected 03/17/2025 11:45 AM EDT LAB Comment:Urine Benzodiazepine Cutoff: < 200 ng/mL = None Detected Cannabinoid Screen, Urine None Detected None Detected 03/17/2025 11:45 AM EDT LAB Comment:Urine Cannabinoids C utoff: < 50 ng/mL = None Detected Cocaine, Screen Urine None Detected None Detected 03/17/2025 11:45 AM EDT LAB Comment:Urine Cocaine Cutoff : < 300 ng/mL = None Detected Methadone Screen, Urine None Detected None Detected 03/17/2025 11:45 AM EDT LAB Comment:Urine Methadone Cuto ff: < 300 ng/mL = None Detected Opiate Screen, Urine None Detected None Detected 03/17/2025 11:45 AM EDT LAB Comment:Urine Opiates Cutoff : < 300 ng/mL = None Detected Oxycodone Screen, Urine None Detected None Detected 03/17/2025 11:45 AM EDT LAB Comment:Urine Oxycodone Cuto ff: < 100 ng/mL = None Detected Buprenorphine, Ur None Detected None Detected 03/17/2025 11:45 AM EDT LAB Comment:Urine Buprenorphine Cutoff: < 5 ng/mL = None Detected Fentanyl, Ur None Detected None Detected 03/17/2025 11:45 AM EDT LAB Comment:Urine Fentanyl Cutof f: < 1 ng/mL = None Detected Urine URINE SPECIMEN / Unknown Collection / Unknown 03/17/2025 11:07 AM EDT 03/17/2025 11:15 AM EDT Narrative LAB - 03/17/2025 11:45 AM EDT Screen results should be used for treatment purposes only. us Suhail Salazar MD URINE ORDERABLES Final Result LAB [address] [place] [address] * Urine Aerobic Culture (03/17/2025 11:07 AM EDT) Culture < 10,000 CFU/mL of normal urogenital microbiota 03/18/2025 1:32 PM EDT [facility] Culture Group B Streptococci present in quantity >= 10,000 CFU/mL. This patient should receive intrapartum antibiotic prophylaxis if . 03/18/2025 1:32 PM EDT [facility] Urine URINE SPECIMEN OBTAINED BY CLEAN CATCH PROCEDURE / Unknown Collection / Unknown 03/17/2025 11:07 AM EDT 03/17/2025 11:15 AM EDT us Suhail Salazar MD MICROBIOLOGY - GENERAL ORDERABLE S Final Result [facility] [address] [place] [address] * (ABNORMAL) Urinalysis (03/17/2025 11:07 AM EDT) Color, Urine Light Red(A) Colorless, Yellow 03/17/2025 11:28 AM EDT LAB Clarity, Urine Cloudy(A) Clear 03/17/2025 11:28 AM EDT LAB Specific [place] 1.010 1.005 - 1.025 03/17/2025 11:28 AM T LAB pH, Urine 7.5(H) 5.0 - 7.0 03/17/2025 11:28 AM EDT LAB Protein, Urine Negative Negative mg/dL 03/17/2025 11:28 AM T LAB Glucose, Urine >=500(A) Negative mg/dL 03/17/2025 11:28 AM T LAB Ketones, Urine Trace(A) Negative mg/dL 03/17/2025 11:28 AM EDT LAB Bilirubin, Urine Negative Negative 03/17/2025 11:28 AM EDT LAB Urobilinogen, Urine <2.0 <2.0 mg/dL 03/17/2025 11:28 AM T LAB Blood, Urine Large(A) Negative 03/17/2025 11:28 AM EDT LAB Nitrite, Urine Negative Negative 03/17/2025 11:28 AM EDT LAB Leukocyte Esterase, Urine Negative Negative 03/17/2025 11:28 AM T LAB WBCs, Urine 1 0 - 5 /hpf 03/17/2025 11:28 AM EDT LAB RBCs, Urine >180(H) 0 - 3 /hpf 03/17/2025 11:28 AM T LAB Bacteria, Urine Rare(A) None Seen /hpf 03/17/2025 11:28 AM EDT LAB Squamous Epithelial 2 0 - 4 /hpf 03/17/2025 11:28 AM T LAB Urine URINE SPECIMEN / Unknown Collection / Unknown 03/17/2025 11:07 AM EDT 03/17/2025 11:15 AM EDT Narrative LAB - 03/17/2025 11:28 AM EDT Microscopic examination is performed on all urinalysis samples and only positive findings are reported. The test for blood on the chemical analytic portion of urinalysis may also be positive due to hemoglobinuria and myoglobinuria and if red blood cells are present they are quantified by microscopic examination. us Suhail Salazar MD URINE ORDERABLES Final Result LAB [address] [place] [address] documented in this encounter Visit Diagnoses Diagnosis Nausea & vomiting- Primary Nausea with vomiting Abdominal pain, unspecified abdominal location Acute back pain Hematuria, unspecified type Hyperglycemia Other abnormal glucose documented in this encounter Administered Medications Inactive Administered Medications - up to 3 most recent administrations Medication Order MAR Action Action Date Dose Rate Site diphenhydrAMINE (BENADRYL) injection 25 mg 25 mg, Intravenous, Once, On Thu03/17/25 at 1100, For 1 dose, For IV administration, give at a rate less than or equal to 25 mg/min Given 03/17/2025 11:16 AM EDT 25 mg famotidine (PEPCID) Vial 20 mg 20 mg, Intravenous, Once, On Thu03/17/25 at 1315, For 1 dose, Aseptically dilute dose of famotidine injection with 0.9% NaCl to a total volume of either 5 ml or 10 ml and inject over 2 minutes ( Use 10mL for Neonates) Given 03/17/2025 1:24 PM EDT 20 mg insulin lispro (AdmeLOG,HumaLOG) injection 14 Units 14 Units, Subcutaneous, Once, On Thu03/17/25 at 1155, For 1 dose Given 03/17/2025 12:45 PM EDT 14 Units Right Arm lactated ringers bolus 2,000 mL 2,000 mL, Intravenous, at 999 mL/hr, Once, On Thu03/17/25 at 1100, For 1 dose New Bag 03/17/2025 11:15 AM EDT 2,000 mL 999 mL/hr metoclopramide (REGLAN) injection 10 mg 10 mg, Intravenous, Once, On Thu03/17/25 at 1100, For 1 dose Given 03/17/2025 11:16 AM EDT 10 mg oxyCODONE-acetaminophen (PERCOCET) 5-325 mg per tablet 1 tablet 1 tablet, Oral, Once, On Thu03/17/25 at 1540, For 1 dose Given 03/17/2025 4:03 PM EDT 1 tablet prochlorperazine (COMPAZINE) injection 10 mg 10 mg, Intravenous, Once, On Thu03/17/25 at 1315, For 1 dose, If IV, give slow IV push at a rate not exceeding 5 mg/minute and remain lying down for 30 minutes to reduce risk of hypotension. If IM, inject deep into outer buttocks quadrant. Given 03/17/2025 1:24 PM EDT 10 mg sodium chloride (PF) (NS) flush 5 mL 5 mL, Intravenous, As needed, line care, Starting on Thu03/17/25 at 1053 sodium chloride 0.9% (NS) bolus 1,000 mL 1,000 mL, Intravenous, at 983.6 mL/hr, Once, On Thu03/17/25 at 1315, For 1 dose New Bag 03/17/2025 1:24 PM EDT 1,000 mL 983.6 mL/hr sodium chloride 0.9% (NS) 0-150 mL/hr, Intravenous, As needed, To flush line after IV infusions when no maintenance IV ordered or a compatibility issue. Infuse 20ml at the same rate as the secondary infusion, Starting on Thu03/17/25 at 1053, Run as Primary IV. NOT intended for KVO. documented in this encounter Active and Recently Administered Medications Times are shown in EDT. Scheduled Medication Order 03/15/2025 03/16/2025 03/17/2025 diphenhydrAMINE (BENADRYL) injection 25 mg (COMPLETED) 25 mg, Intravenous, Once, On Thu03/17/25 at 1100, For 1 dose, For IV administration, give at a rate less than or equal to 25 mg/min 1116 (Given - Provid er: Paulina Anderson RN) famotidine (PEPCID) Vial 20 mg (COMPLETED) 20 mg, Intravenous, Once, On Thu03/17/25 at 1315, For 1 dose, Aseptically dilute dose of famotidine injection with 0.9% NaCl to a total volume of either 5 ml or 10 ml and inject over 2 minutes ( Use 10mL for Neonates) 1324 (Given - Provid er: Paulina Anderson RN) insulin lispro (AdmeLOG,HumaLOG) injection 14 Units (COMPLETED) 14 Units, Subcutaneous, Once, On Thu03/17/25 at 1155, For 1 dose 1245 (Given - Provid er: Paulina Anderson RN) lactated ringers bolus 2,000 mL (COMPLETED) 2,000 mL, Intravenous, at 999 mL/hr, Once, On Thu03/17/25 at 1100, For 1 dose 1115 (New Bag - Prov ider: Paulina Anderson RN)1324 (Stopped - Provider: Paulina Anderson RN) metoclopramide (REGLAN) injection 10 mg (COMPLETED) 10 mg, Intravenous, Once, On Thu03/17/25 at 1100, For 1 dose 1116 (Given - Provid er: Paulina Anderson RN) oxyCODONE-acetaminophen (PERCOCET) 5-325 mg per tablet 1 tablet (COMPLETED) 1 tablet, Oral, Once, On Thu03/17/25 at 1540, For 1 dose 1603 (Given - Provid er: Paulina Anderson RN) prochlorperazine (COMPAZINE) injection 10 mg (COMPLETED) 10 mg, Intravenous, Once, On Thu03/17/25 at 1315, For 1 dose, If IV, give slow IV push at a rate not exceeding 5 mg/minute and remain lying down for 30 minutes to reduce risk of hypotension. If IM, inject deep into outer buttocks quadrant. 1324 (Given - Provid er: Paulina Anderson RN) sodium chloride 0.9% (NS) bolus 1,000 mL (COMPLETED) 1,000 mL, Intravenous, at 983.6 mL/hr, Once, On Thu03/17/25 at 1315, For 1 dose 1324 (New Bag - Prov ider: Paulina Anderson RN)1428 (Stopped - Provider: Vaishali Arango RN) PRN Medication Order 03/15/2025 03/16/2025 03/17/2025 sodium chloride (PF) (NS) flush 5 mL(Linked Group 1) 5 mL, Intravenous, As needed, line care, Starting on Thu03/17/25 at 1053 sodium chloride 0.9% (NS)(Linked Group 1) 0-150 mL/hr, Intravenous, As needed, To flush line after IV infusions when no maintenance IV ordered or a compatibility issue. Infuse 20ml at the same rate as the secondary infusion, Starting on Thu03/17/25 at 1053, Run as Primary IV. NOT intended for KVO. Linked Groups Order Group 1: Insert peripheral IV (COMPLETED) ENOCH, Once, On Thu03/17/25 at 1054, For 1 occurrence And Saline lock IV (CANCELED) ENOCH, Once, On Thu03/17/25 at 1054, For 1 occurrence And sodium chloride (PF) (NS) flush 5 mLJump to med 5 mL, Intravenous, As needed, line care, Starting on Thu03/17/25 at 1053 And sodium chloride 0.9% (NS)Jump to med 0-150 mL/hr, Intravenous, As needed, To flush line after IV infusions when no maintenance IV ordered or a compatibility issue. Infuse 20ml at the same rate as the secondary infusion, Starting on Thu03/17/25 at 1053, Run as Primary IV. NOT intended for KVO. documented in this encounter Additional Health Concerns Assessment Noted Time PHQ-2 Depression Total Score: 0 04/04/20 24 8:00 AM EDT documented as of this encounter Care Teams Slate Splitter Relationship Specialty Start Date End Date Skye Jones CNP [address] [place] [address] PCP - General Nurse Practitioner 12/03/21 documented as of this encounter
--- OUTSIDE RECORDS SUMMARY | 2025-03-19 00:15 | XMS_ITS | Encounter Summary ---
Author Organization [facility] Address [address] [place] [address] Phone Care Team Providers Care Tape Cutting Machine Operator Name Role Phone Skye Jones APPRAISER IRRIGATION TAX-AIR BRAKE MECHANIC Primary Care Pr ovider Reason for Visit * Reason Comments Arm Pain Right arm pain, daija es injury. Pt states that her whole right side including her jaw is painful. Encounter Details Date Type Department Care Team (Late st Contact Info) Description 03/19/2025 12:15 AM EDT - 03/19/2025 2:19 AM EDT Emergency [facility] Emergency Medicine [address] [place] [phone] Acute pain of right shoulder (Primary Dx) Discharge Disposition: Home Social History Tobacco Use [...] Sign Reading Time Taken Comments Blood Pressure 162/84 03/19/2025 2:17 AM EDT Pulse 113 03/19/2025 2:17 AM EDT Temperature 36.9 C (98.4 F) 03/19/2025 12:13 AM EDT Respiratory Rate 20 03/19/2025 2:17 AM EDT Oxygen Saturation 97% 03/19/2025 2:17 AM EDT Inhaled Oxygen Concentration - - Weight 122 kg (270 lb) 03/19/2025 12:13 AM EDT Height 170.2 cm (5' 7 ) 03/19/2025 12:13 AM EDT Body Mass Index 42.29 03/19/2025 12:13 AM EDT documented in this encounter Functional Status * Question Answer Date of Assessment Author BP 162/84 03/19/2025 2:17 AM EDT Monalisa Bernabe RN Pulse 113 03/19/2025 2:17 AM EDT Monalisa Bernabe RN * Sifuentes Fall Risk Question Answer Date of Assessment Author History of Falling, Immediat e or Within 3 Months 0 03/19/2025 12:11 AM EDT Trinh Patterson R N Secondary Diagnosis 0 03/19/2025 12:11 AM E DT Trinh Patterson RN Ambulatory Aid 0 03/19/2025 12:11 AM EDT Trinh Calderón RN Intravenous Therapy/Heparin Lock 0 03/19/20 25 12:11 AM EDT Trinh Patterson RN Gait/Transferring 0 03/19/2025 12:11 AM EDT Trinh Patterson RN Mental Status 0 03/19/2025 12:11 AM EDT Trinh Johnson RN Sifuentes Fall Risk Score 0 03/19/2025 12:11 AM EDT Trinh Patterson RN * Communicable Disease Screening Question Answer Date of Assessment Author Do you have any of the following new or worsening symptoms? None of these 03/19/2025 12:11 AM EDT Trinh Patterson R N * Abuse Screen Question Answer Date of Assessment Author Have you had any thoughts of harming anyone else? No 03/19/2025 12:11 AM EDT Trinh Patterson R N Are there any apparent signs of injuries/behaviors that could be related to abuse/neglect? No 03/19/2025 12:11 AM EDT Tay Patterson RN Are you or have you been thr eatened or abused physically, emotionally, or sexually by anyone? No 03/19/2025 12:11 AM EDT Trinh Patterson RN Has anyone ever threatened t o hurt your family or your pets? No 03/19/2025 12:11 AM EDT Tay Patterson RN Does anyone try to keep you from having/contacting other friends or doing things outside your home? No 03/19/2025 12:11 AM EDT Trinh Patterson RN Do you feel UNSAFE going umberto k to the place where you are living? No 03/19/2025 12:11 AM EDT Kamron Patterson RN Do you feel anyone has explo ited or taken advantage of you financially or of your personal property? No 03/19/2025 12:11 AM EDTrinh Jacobson RN Abuse Screen Adult 03/19/2025 12:11 AM EDTrinh Jacobson RN * Ability to Assess Risk Screen Question Answer Date of Assessment Author Risk Screen - Ability to Assess Able to be screened 03/19/2025 12:11 AM EDT Trinh Patterson R N * Calculated C-SSRS Risk Score (Lifetime/Recent) Answer Date of Assessment Author No Risk Indicated 03/19/2025 12:11 AM EDTrinh Jacobson RN * [place] Suicide Severity Rating Scale (Screener/Recent Self-Report) Question Answer Date of Assessment Author 1. Wish to be (Past 1 Month) No 025 12:11 AM Trinh Burns RN 2. Non-Specific Active Suici braulio Thoughts (Past 1 Month) No 03/19/2025 12:11 AM Agnieszka Burns RN 6. Suicidal Behavior (Lifetime) No 12:11 AM Trinh Burns RN documented as of this encounter Discharge Instructions * Attachments The following attachments cannot be sent through Care Everywhere. * Shoulder pain (Togolese) documented in this encounter Medications at Time of Discharge methocarbamol (Robaxin) 500 mg tabletIndications :Flank pain Take 2 tablets (1,000 mg) by mouth 4 times a day as needed (flank pain). 30 tablet 02/02/2025 documented as of this encounter ED Notes * Niraj Peterson, PEE-AIR BRAKE MECHANIC - 03/19/2025 12:40 AM EDT HPI Chief Complaint Patient presents with Arm Pain Right arm pain, denies injury. Pt states that her whole right side including her jaw is painful. Patient is a healthy nontoxic-appearing 49-year-old female with a past medical history of pancreatitis, altered mental status, biliary calculus, nephrolithiasis, type 2 diabetes, esophageal reflux, hematuria, hypertension, hypokalemia, malingering, chronic pain, presents the emergency room today for complaint of right arm pain. Patient states she developed pain from the right shoulder that radiates down to the fingers later today. Patient states since then however she has been experiencing painthat radiates up to the jaw and down the leg. Patient denies any injuries trauma or falls, excessive use, chest pain, shortness of breath difficulty breathing, palpitations, lightness, dizziness, syncopal or syncopal events, abdominal pain, nausea, vomit, diarrhea or constipation, fever, shaking, or chills. Patient History Medical History[1] Surgical History[2] Family History[3] Social History[4] Physical Exam ED Triage Vitals [03/19/25 0013] Temperature Heart Rate Respirations BP 36.9 ??C (98.4 ??F) (!) 128 16 144/71 Pulse Ox Temp Source Heart Rate Source Patient Position 95 % Temporal -- Sitting BP Location FiO2 (%) Right arm -- Physical Exam Vitals and nursing note reviewed. Constitutional: General: She is not in acute distress. Appearance: Normal appearance. She is not ill-appearing, toxic-appearing or diaphoretic. HENT: Head: Normocephalic. Eyes: General: Right eye: No discharge. Left eye: No discharge. Extraocular Movements: Extraocular movements intact. Pupils: Pupils are equal, round, and reactive to light. Cardiovascular: Rate and Rhythm: Normal rate and regular rhythm. Pulses: Normal pulses. Heart sounds: Normal heart sounds. No murmur heard. No friction rub. No gallop. Pulmonary: Effort: Pulmonary effort is normal. No respiratory distress. Breath sounds: Normal breath sounds. No stridor. No wheezing, rhonchi or rales. Chest: Chest wall: No tenderness. Musculoskeletal: General: Tenderness present. No swelling, deformity or signs of injury. Normal range of motion. Cervical back: Normal range of motion and neck supple. Right lower leg: No edema. Left lower leg: No edema. Comments: Diffuse reproducible tenderness upon palpation over the right shoulder with no ecchymosis, erythema gross deformity present, decreased range of motion secondary to discomfort, no midline cervical, thoracic or lumbar spinal tenderness and crepitus, step-offs upon palpation, no reproducibletenderness to palpation to the elbow, wrist or hand, cap refill less than 3 seconds, hand grasp strong and regular, radial pulses are strong and regular. Skin: General: Skin is warm. Capillary Refill: Capillary refill takes less than 2 seconds. Coloration: Skin is not jaundiced or pale. Findings: No bruising, erythema, lesion or rash. Neurological: General: No focal deficit present. Mental Status: She is alert and oriented to person, place, and time. Cranial Nerves: No cranial nerve deficit. ED Course & MDM ED Course as of 03/19/25 0142 Sun Mar 19, 2025 0050 EKG interpreted by myself reveals sinus tachycardia with PACs at a rate of [address] elevation or T wave inversion that is similar in comparison to previous EKG, ME interval of 96, QRS of 86 and QTc of 607. [EC] 0117 X-ray of the right shoulder reveals FINDINGS: No evidence of acute fracture or malalignment. Some irregularity seen in the rotator cuff insertion which can be due to rotator cuff pathology. [EC] ED Course User Index [EC] Niraj Peterson, PEE-AIR BRAKE MECHANIC Diagnoses as of 03/19/25141 Acute pain of right shoulder No data recorded Mariaelena Coma Scale Score: 15 (03/19/25 0008 : Trinh Patterson RN) Medical Decision Making Given patient's complaint presentation a thorough exam was performed. On exam patient has Diffuse reproducible tenderness upon palpation over the right shoulder with no ecchymosis, erythema gross deformity present, decreased range of motion secondary to discomfort, no midline cervical, thoracic or lumbar spinal tenderness and crepitus, step-offs upon palpation, no reproducible tenderness to palpation to the elbow, wrist or hand, cap refill less than 3 seconds, hand grasp strong and regular, radial pulses are strong and regular. No adventitious lung sounds auscultated, speaking clearly no distress, cardiac sounds auscultated are fast and regular, I have a low suspicion for vascular compromise, acute osseous abnormality given lack of injury, ACS, pulmonary embolism, aortic aneurysm. Previous emergency evaluations were reviewed that reveals patient has been seen in several emergency room'sfor similar complaints. Patient states she has tizanidine prescription however states she does not take this regularly and believes she takes this every other day for discomfort. Patient was offered muscle relaxer's however declined at this time. Patient states she recently seen personalization specialist 2 days ago however was not experiencing pain at this time and states next appointment is not until April. Patient's initial heart rate upon arrival to emergency room was 128 and after review of previous charts this is a normal finding. X-ray of the right shoulder as interpreted by radiologist reveals no acute osseous abnormality, fracture or dislocation with some irregularity seen in the rotator cuff insertion which can be due to rotator cuff pathology which patient states she has. Patientwas offered sling and muscle relaxers however declined at this time. I strongly encouraged following up orthopedics in the next several weeks and if symptoms become worse return to the emergency roomfor further evaluation. Patient was agreeable this plan discharged home in stable condition. SHANI Chapa Portions of this note were generated using digital voice recognition software, and may contain grammatical errors Procedure Procedures [1] Past Medical History: Diagnosis Date Diabetes mellitus (Multi) GERD (gastroesophageal reflux disease) [2] Past Surgical History: Procedure Laterality Date CT ABDOMEN PELVIS ANGIOGRAM W AND/OR WO IV CONTRAST 11/09/2019 CT ABDOMEN PELVIS ANGIOGRAM W AND/OR WO IV CONTRAST 11/09/2019 [facility] [3] No family history on file. [4] Social History Tobacco Use Smoking status: Never Passive exposure: Never Smokeless tobacco: Never Vaping Use Vaping status: Never Used Substance Use Topics Alcohol use: Defer Drug use: Never SHANI Chapa 03/19/25 0142 documented in this encounter Plan of Treatment Pending Results Name Type Priority Associated Diagnoses Date /Time ECG 12 lead ECG STAT 03/19/2025 12 :50 AM EDT documented as of this encounter Procedures Procedure Name Priority Date/Time Associated Diagnosis Comments XR SHOULDER 2+ VIEWS RIGHT STAT 03/19/2025 1:03 AM EDT ECG 12-LEAD STAT 03/19/2025 12:50 AM EDT Procedure Note - 03/19/2025 12:50 AM EDTThis note is in progress. Sinus tachycardia with short ME with Premature supraventricularcomplexes Nonspecific T wave abnormality Abnormal ECG When compared with ECG of 30-DEC-2024 02:14, No significant change was found See ED provider note for full interpretation and clinical correlation documented in this encounter Results * XR shoulder right 2+ views (03/19/2025 1:03 AM EDT) Anatomical Region Laterality Modality Musculoskeletal, Upper Extremities, Shoulder Rig ht Computed Radiography 03/19/2025 1:12 AM EDT 03/19/2025 1:12 AM EDT Impressions 03/19/2025 1:11 AM EDT No acute findings. If concern for rotator cuff pathology, consider MRI MACRO: None Signed by: Damian Mederos 03/19/2025 1:11 AM Dictation workstation: [id number] Narrative 03/19/2025 1:11 AM EDT Interpreted By: Damian Mederos, STUDY: XR SHOULDER RIGHT 2+ VIEWS; ; 03/19/2025 1:03 am INDICATION: Signs/Symptoms:Pain. COMPARISON: None. ACCESSION NUMBER(S): [id number] ORDERING CLINICIAN: NIRAJ CHATAL FINDINGS: No evidence of acute fracture or malalignment. Some irregularity seen in the rotator cuff insertion which can be due to rotator cuff pathology. Procedure Note Damian Mederos MD - 03/19/2025 Interpreted By: Damian Mederos, STUDY: XR SHOULDER RIGHT 2+ VIEWS; ; 03/19/2025 1:03 am INDICATION: Signs/Symptoms:Pain. COMPARISON: None. ACCESSION NUMBER(S): [id number] ORDERING CLINICIAN: NIRAJ CHATAL FINDINGS: No evidence of acute fracture or malalignment. Some irregularity seen in the rotator cuff insertion which can be due to rotator cuff pathology. IMPRESSION: No acute findings. If concern for rotator cuff pathology, consider MRI MACRO: None Signed by: Damian Mederos 03/19/2025 1:11 AM Dictation workstation: [id number] Niraj Peterson APPRAISER IRRIGATION TAX-AIR BRAKE MECHANIC IMG XR PROCEDURES Final R esult documented in this encounter Visit Diagnoses Diagnosis Acute pain of right shoulder- Primary documented in this encounter Care Teams Tape Cutting Machine Operator Relationship Specialty Start Date End Date Skye Jones APRN-CNP [address] [facility] [address] [facility] [address] [place], [place] [id number] PCP - General 11/28/21 documented as of this encounter
[2025-03-22 20:49] VITALS: BP 142/105; PULSE 107; TEMP 36.7; O2SAT 98; BMI 41.5
--- OUTSIDE RECORDS SUMMARY | 2025-03-22 20:52 | XMS_ITS | Encounter Summary ---
Author Organization [facility] Address [address] [place] [address] Phone Care Team Providers Care Jewel Bearing Turner Name Role Phone Skye Jones SALES MARKETING COORDINATOR-DIRECTOR CORPORATE SECURITY Primary Care Pr ovider Encounter Details Date Type Department Care Team (Latest Contact Info) Description 03/19/2025 Travel Social History Tobacco Use Types Packs/Day Years [...] on file documented as of this encounter Functional Status * Question Answer [...] Secondary Diagnosis 0 03/19/2025 12:11 AM E Trinh Mcconnell RN Ambulatory Aid 0 03/19/2025 12:11 AM EDT Trinh Calderón RN Intravenous Therapy/Heparin Lock 0 03/19/20 12:11 AM EDT Trinh Patterson RN Gait/Transferring 0 03/19/2025 12:11 AM Trinh Burns RN Mental Status 0 03/19/2025 12:11 AM Trinh Blackmon RN Sifuentes Fall Risk Score 0 03/19/2025 12:11 AM Trinh Burns RN * Communicable Disease Screening Question Answer Date of Assessment Author Do you have any of the following new or worsening symptoms? None of these 03/19/2025 12:11 AM Trinh Burns R N * Abuse Screen Question Answer Date of Assessment Author Have you had any thoughts of harming anyone else? No 03/19/2025 12:11 AM Trinh Burns R N Are there any apparent signs of injuries/behaviors that could be related to abuse/neglect? No 03/19/2025 12:11 AM Tay Burns RN Are you or have you been thr eatened or abused physically, emotionally, or sexually by anyone? No 03/19/2025 12:11 AM Trinh Burns RN Has anyone ever threatened t o hurt your family or your pets? No 03/19/2025 12:11 AM Tay Burns RN Does anyone try to keep you from having/contacting other friends or doing things outside your home? No 03/19/2025 12:11 AM Trinh Burns RN Do you feel UNSAFE going umberto k to the place where you are living? No 03/19/2025 12:11 AM Kamron Burns RN Do you feel anyone has explo ited or taken advantage of you financially or of your personal property? No 03/19/2025 12:11 AM Trinh Burns RN Abuse Screen Adult 03/19/2025 12:11 AM Trinh Burns RN * Ability to Assess Risk Screen Question Answer Date of Assessment Author Risk Screen - Ability to Assess Able to be screened 03/19/2025 12:11 AM Trinh Burns R N * Calculated C-SSRS Risk Score (Lifetime/Recent) Answer Date of Assessment Author No Risk Indicated 03/19/2025 12:11 AM Trinh Burns RN * [place] Suicide Severity Rating Scale (Screener/Recent Self-Report) Question Answer Date of Assessment Author 1. Wish to be (Past 1 Month) No 025 12:11 AM EDT Trinh Patterson, RN 2. Non-Specific Active Suici braulio Thoughts (Past 1 Month) No 03/19/2025 12:11 AM EDT Agnieszka Patterson, RN 6. Suicidal Behavior (Lifetime) No 12:11 AM EDT Trinh Patterson, RN documented as of this encounter Plan of Treatment Not on file documented as of this encounter Visit Diagnoses Not on filedocumented in this encounter Care Teams Jewel Bearing Turner Relationship Specialty Start Date End Date Skye Jones APRN-DIRECTOR CORPORATE SECURITY [address] [facility] [address] [place], [place] [phone] PCP - General 11/28/21 documented as of this encounter
--- OUTSIDE RECORDS SUMMARY | 2025-03-22 20:52 | XMS_ITS | Encounter Summary ---
Author Organization [facility] Address [address] [place] [address] Phone Care Team Providers Care Sales Manager Name Role Phone Skye Jones Primary Care Pr ovider Encounter Details Date Type Department Care Team (Late st Contact Info) Description 05/02/2020 Orders Only [facility] [address] [place] [address] Conversion, Onbase Social History Tobacco Use Types Packs/Day Years Used Date Smoking Tobacco: Never Assessed Comments Unknown Sex and Gender Information Value Date Recorded Sex Assigned at Not on file Legal Sex Female 6:27 AM EST Gender Identity Not on file Sexual Orientation Not on file documented as of this encounter Plan of Treatment Scheduled Orders Name Type Priority Associated Diagnoses Orde r Schedule SLEEP STUDY ORDER - ONBASE SCAN Sleep Center Ordered: 020 documented as of this encounter Visit Diagnoses Not on filedocumented in this encounter Care Teams Sales Manager Relationship Specialty Start Date End Date Skye Jones APRN-CNP [address] [place] [address] PCP - General 11/28/21 documented as of this encounter
--- OUTSIDE RECORDS SUMMARY | 2025-03-22 20:52 | XMS_ITS | Encounter Summary ---
Author Organization [facility] Address [address] [facility] [place] [address] Care Team Providers Care Sand And Gravel Plant Operator Name Role Phone Jaron Solis MD Primary Care Provider [phone] Encounter Details Date Type Department Care Team (Late st Contact Info) Description 03/16/2025 Bamboo flowsheet [facility] [address] [place] [address] Omi Watkins DO [address] [place] [address] Social History Tobacco Use Types Packs/Day Years [...] 05/18/2025 8:45 AM EST Office Visit [facility] [address] [facility] [place] [phone] Omi Watkins DO [address] [place] [address] documented as of this encounter Visit Diagnoses Not on filedocumented in this encounter Care Teams Sand And Gravel Plant Operator Relationship Specialty Start Date End Date Jaron Solis MD [address] [place] [address] PCP - General Family Medicine 01/15/23 documented as of this encounter
--- OUTSIDE RECORDS SUMMARY | 2025-03-22 20:52 | XMS_ITS | Patient Health Record ---
Author Organization [facility] [place] Address [address] [place] [address] Care Team Providers Care Service Observer Chief Name Role Phone None, Unknown or Primary [...] Status W/U Status Risk Notes Problem Neurosis ([id number]) Psychiatric problem (F99) Active confirmed Plan Of Treatment No Information Insurance Providers Payer Name Payer Address Payer Phone Subscriber Number Group Number Insured Name Patient Relationship to Insured Coverage Start Date Coverage End Date [employer] [place] [employer] [address] [place] [address] [id number] Bree Carlton Self - patient is the insured Medical (General) History Medical History History ICD Code Diabetes E11.9 High cholesterol E78.00 Substance abuse F19.10 Hypertension I10 GERD (gastroesophageal reflux disease) K 21.9 Surgical History Surgery Date(Month/Year) right leg fracture carpal tunnel bilateral right shoulder (bicep and rotator cuff) 3 trigger release hysterectomy
--- OUTSIDE RECORDS SUMMARY | 2025-03-22 20:52 | XMS_ITS | Encounter Summary ---
Author Organization [facility] Address [address] [place] [address] Care Team Providers Care Bobbin Sorter Name Role Phone Skye Jones CNP Primary Care Provider [phone] Encounter Details Date Type Department Care Team (Latest Contact Info) Description 03/10/2025 Travel Social History Tobacco Use Types Packs/Day Years Used Date Smoking Tobacco: Never Smokeless Tobacco: Never Alcohol Use Standard Drinks/Week Comments Never 0 (1 standard drink = 0.6 oz pur e alcohol) [facility] Utilities Answer Date Recorded In the past 12 months has [employer] electric, gas, oil, or water company threatened to shut off services in your [...] any time in the past 12 m [facility], were you homeless or living in a snf (including now)? No 02/13/2025 Comments No Sex and Gender Information Value Date Recorded Sex Assigned at Not on file Legal Sex Female 8:07 AM EDT Gender Identity Female 07/08/2020 9:32 PM EST Sexual Orientation Straight 07/08/2020 9: 32 PM EST documented as of this encounter Plan of Treatment Not on file documented as of this encounter Visit Diagnoses Not on filedocumented in this encounter Additional Health Concerns Assessment Noted Time PHQ-2 Depression Total Score: 0 04/04/20 24 8:00 AM EDT documented as of this encounter Care Teams Bobbin Sorter Relationship Specialty Start Date End Date Skye Jones CNP [address] [phone] PCP - General Nurse Practitioner 12/03/21 documented as of this encounter
--- OUTSIDE RECORDS SUMMARY | 2025-03-22 20:52 | XMS_ITS | Encounter Summary ---
Author Organization [facility] Address [address] [place] [address] Care Team Providers Care Finishing Room Operator Name Role Phone Jaron Solis MD Primary Care Provider [phone] Encounter Details Date Type Department Care Team (Latest Contact Info) Description 03/16/2025 Travel Social History Tobacco Use Types Packs/Day [...] EST Office Visit [facility] [address] [place] [phone] Omi Watkins DO [address] [place] [address] documented as of this encounter Visit Diagnoses Not on filedocumented in this encounter Care Teams Finishing Room Operator Relationship Specialty [place] [address] [place] [address] [address] [place] [address] PCP - General Family Medicine 01/15/23 documented as of this encounter
--- OUTSIDE RECORDS SUMMARY | 2025-03-22 20:53 | XMS_ITS | Encounter Summary ---
Author Organization [facility] Address [address] [place] [address] Care Team Providers Care Scholarship Counselor Name Role Phone Skye Jones CNP Primary Care Provider [phone] Encounter Details Date Type Department Care Team (Late st Contact Info) Description 02/13/2025 Results Follow-Up [facility] [address] [place] [address] La Nena Avery RP,PharmD Urine Aerobic Culture Social History Tobacco Use Types Packs/Day Years Used Date Smoking Tobacco: Never Smokeless Tobacco: Never Alcohol Use Standard Drinks/Week Comments Never 0 (1 standard drink = 0.6 oz pur e alcohol) [facility] Utilities Answer Date Recorded In the past 12 months has e electric, gas, oil, or water [employer] threatened to shut off services in your [...] any time in the past 12 m [facility], were you homeless or living in [...] documented as of this encounter Care Teams Scholarship Counselor Relationship Specialty Start Date End Date Skye Jones CNP [address] [phone] PCP - General Nurse Practitioner 12/03/21 documented as of this encounter
--- OUTSIDE RECORDS SUMMARY | 2025-03-22 20:53 | XMS_ITS | Clinical Summary ---
Author Organization [facility] Address [address] [place] [address] Care Team Providers Care Digital Sales Manager Name Role Phone Jaron Solis MD Primary Care Provider [phone] Allergies Active Allergy Reactions Criticality Noted Date Comments Aspirin Unknown Low 04/23/2011 Pt states gives me nosebleeds nosebleeds Pt states gives me nosebleeds nosebleeds nosebleeds Azithromycin 01/05/2025 Charentais Melon (Trinidadian Melon) Hives,Swelling 01/28/2024 Ciprofloxacin Hives,Rash Medium 11/07/2019 [...] as directed 1 (one) time per week 3 Active insulin aspart (NovoLOG, Fiasp) 100 UNIT/ML [...] mouth every 6 (six) hours if needed 3 Active DULoxetine (Cymbalta) [address] capsule Take 60 mg by mouth Daily 3 Active OLANZapine (ZyPREXA) 5 MG tablet Take 5 mg by mouth at bedtime Active promethazine (Phenergan) 25 MG tablet 4 Active ARIPiprazole (Abilify) 20 MG tablet 4 Active Continuous Glucose Sensor (FreeStyle Myron 2 Sensor) [facility] 4 Active Lantus SoloStar 100 UNIT/ML pen Acti ve insulin lispro (HumaLOG) 100 UNIT/ML injection 4 Active Drug [place] Unifine Pentips Plus 32G X 4 MM [facility] [place] 4 Active meclizine (Antivert) 25 MG tablet Take 25 mg by mouth every 8 (eight) hours if needed 4 Active pantoprazole (ProtoNix) 40 MG EC tablet Take 40 mg by mouth in the morning. Active Jardiance 25 MG Take 25 mg by mouth Daily 4 Active albuterol HFA 90 mcg/act inhaler Inhale 2 puffs every 6 (six) hours if needed Active Continuous Glucose Acetylene Torch Burner (FreeStyle Myron 3 [place]) device 5 Active fluticasone (Flonase) 50 MCG/ACT nasal spray 5 Active ondansetron (Zofran) 4 MG tablet TAKE 1 TABLET BY MOUTH EVERY 8 HOURS NEEDED EVERY 48 hours 5 Active acetaminophen (Tylenol Extra Strength) 500 MG tabletIndications: Secondary adhesive capsulitis of left shoulder Take 1 tablet (500 mg) by mouth every 4 (four) hours if needed for mild pain 40 tablet 5 Active methocarbamol (Robaxin) 500 MG tablet Take 500 mg by mouth in the morning and 500 mg at noon and 500 mg in the evening. 5 Active cholecalciferol (Vitamin D-3) 25 MCG (1000 UT) tablet Take 25 mcg by mouth 1 (one) time per week 5 Active colesevelam (Welchol) 625 MG tablet Take 625 mg by mouth in the morning and 625 mg in the evening. Take with meals. 5 Active ondansetron ODT (Zofran-ODT) 4 MG disintegrating tablet DISSOLVE ONE TABLET on top OF tongue EVERY 6 TO 8 HOURS NEEDED for FOR NAUSEA 5 Active oxyCODONE-acetamin ophen (Percocet) 5-325 MG tablet 5 025 Discontin ued(Thera py completed ) Active Problems Problem Noted Date Diagnosed Date Left knee pain 06/11/2015 Resolved Problems Problem Noted Date Diagnosed Date Resolved Date Hypertension 11/24/2013 12/11/2022 Encounters Date Type Department Care Team Description 03/16/2025 2:15 PM EDT Office Visit [facility] [address] [place] [address] Omi Watkins, DO S/P arthroscopy of left shoulder (Primary Dx) 03/16/2025 Bamboo flowsheet [facility] [address] [place] [id number] Omi Watkins DO 03/16/2025 Travel 01/05/2025 9:15 AM EDT [facility] [address] [place] [address] Omi Watkins DO Arthrofibrosis of right shoulder (Primary Dx) 01/05/2025 Bamboo flowsheet [facility] [address] [place] [id number] Omi Watkins DO 01/05/2025 Travel from Last 3 Months Family History [...] Mass Index 43.38 03/16/2025 2:25 PM EDT Plan of Treatment Upcoming Encounters Date Type Department Care Team (Late st Contact Info) Description 05/18/2025 8:45 AM EST [facility] [address] [place] [address] Omi Watkins DO [address] [place] [address] Insurance Care Teams Digital Sales Manager Relationship Specialty Start Date End Date Jaron Solis MD [address] [place], [place] [id number] PCP - General Family Medicine 01/15/23
--- OUTSIDE RECORDS SUMMARY | 2025-03-22 20:53 | XMS_ITS | Encounter Summary ---
Author Organization [facility] Address [address] [place] [address] Phone Care Team Providers Care Carry Out Clerk Name Role Phone Skye Jones Primary Care Pr ovider Encounter Details Date Type Department Care Team (Late st Contact Info) Description 02/04/2025 Results Follow-Up [facility] [address] [place] [address] Werner Jules, PharmD [address] [place] [address] Urine Culture Social History Tobacco Use Types [...] on filedocumented in this encounter Care Teams Carry Out Clerk Relationship Specialty Start Date End Date Skye Jones APRN-CNP [address] [place], [place] [phone] PCP - General 11/28/21 documented as of this encounter
--- OUTSIDE RECORDS SUMMARY | 2025-03-22 20:53 | XMS_ITS | Clinical Summary ---
Author Organization [facility] Address [address] [place] [address] Phone Care Team Providers Care Catering Sales Manager Name Role Phone Skye Jones COCOA MILL OPERATOR-CAR PACKER Primary Care Pr ovider Allergies Active Allergy [...] Hives, Hives/Urticaria Medications cyclobenzaprine (Flexeril) 10 mg tabletIndication s:Flank pain Take 1 tablet (10 mg) by mouth 2 times a day as needed for muscle spasms for up to 5 days. 10 tablet 12/12/2024 Active methocarbamol (Robaxin) 500 mg tabletIndication s:Acute right flank pain,Acute cystitis with hematuria,Renal colic on right side Take 1 tablet (500 mg) by mouth 3 times a day for 7 days. 21 tablet 12/20/2024 Active metoclopramide (Reglan) 10 mg tabletIndication s:Nausea and vomiting, unspecified vomiting type Take 1 tablet (10 mg) by mouth every 6 hours if needed (Nausea vomiting) for up to 7 days. 15 tablet 12/20/2024 Active methocarbamol (Robaxin) 500 mg tabletIndication s:Flank pain Take 2 tablets (1,000 mg) by mouth 4 times a day as needed (flank pain). 30 tablet 02/02/2025 Active Active Problems Problem Noted Date Diagnosed Date Biliary calculus 12/12/2024 Chronic pharyngitis 12/12/2024 Type 2 diabetes mellitus (Multi) 12/12/2024 Gastroesophageal reflux disease 12/12/2024 HLD (hyperlipidemia) 12/12/2024 Hypokalemia 12/12/2024 Chronic pain 12/12/2024 Nephrolithiasis 08/22/2024 Overview (12/12/2024): April 2024 CT scan [facility]. Small stone right upper pole [...] some point to monitor stone. Acute pancreatitis ([facility]) 01/26/2024 Constipation 06/07/2023 Depressive disorder 03/29/2023 AMS (altered mental status) 03/06/2023 Malingerer 05/11/2022 Hypotension 12/04/2021 Hematuria 02/01/2021 Encounters Date Type Department Care Team Description 03/19/2025 12:15 AM EDT - 03/19/2025 2:19 AM EDT Emergency [facility] Emergency Medicine [address] [place] [address] Acute pain of right shoulder (Primary Dx) Discharge Disposition: Home 03/19/2025 Travel 02/04/2025 Results Follow-Up [facility] [address] [place] [address] Werner Jules, PharmD Urine Culture 02/04/2025 Telephone [facility] [address] [place] [address] Werner Jules, PharmD Results 02/01/2025 11:14 PM EDT - 02/02/2025 1:30 AM EDT Emergency [facility] Emergency Medicine [address] [place] [address] Flank pain (Primary Dx) Discharge Disposition: Home 02/01/2025 Travel 01/03/2025 11:12 AM EDT - 01/03/2025 12:21 PM EDT Emergency [facility] Emergency Medicine [address] [place] [address] Teto Butler MD Flank pain (Primary Dx) Discharge Disposition: Against Medical Advice 01/03/2025 Telephone [facility] [address] [place] [address] Jennifer Nowak, PharmD Results 01/03/2025 Travel 12/31/2024 4:15 PM EDT - 12/31/2024 11:59 PM EDT Hospital Encounter [facility] [address] [place] [address] Discharge Disposition: Home 12/30/2024 1:13 AM EDT - 12/30/2024 7:26 AM EDT Emergency [facility] Emergency Medicine [address] [place] [address] Gely Silverio MD Urinary tract infection with hematuria, site unspecified (Primary Dx); Chest pain, unspecified type; Flank pain Discharge Disposition: Home 12/29/2024 Travel 12/20/2024 3:34 AM EDT - 12/20/2024 5:55 AM EDT Emergency [facility] Emergency Medicine [address] [place] [address] Acute right flank pain (Primary Dx); Acute cystitis with hematuria; Renal colic on right side; Nausea and vomiting, unspecified vomiting type Discharge Disposition: Home 12/20/2024 Travel from Last 3 Months Social History [...] Mass Index 42.29 03/19/2025 12:13 AM EDT Plan of Treatment Health Maintenance Due [...] Pap Smear 08/26/2024 08/26/2021 COVID-19 Vaccine ( season) 2025 Influenza Vaccine (#1) 2025 04/28/2024, 2017 Zoster Vaccines (1 of 2) 2025 Diabetes: Hemoglobin A1C 05/28/2025 025, 01/06/2025, 02/24/2024, Additional history exists DTaP/Tdap/Td Vaccines (2 - Td or Tdap) [...] is in progress. Sinus tachycardia with short CO with Premature supraventricularcomplexes Nonspecific T wave abnormality Abnormal ECG When compared with ECG of 30-DEC-2024 02:14, No significant change was found See ED provider note for full interpretation and clinical correlation CT ABDOMEN PELVIS WO IV CONTRAST STAT [...] 1:34 AM EDT D-DIMER, VTE EXCLUSION STAT 12/30/2024 1:34 AM EDT TROPONIN SERIES- (INITIAL, 1 [...] URINE CULTURE STAT 12/20/2024 3:55 AM EDT HEMOGLOBIN A1C Routine 11/08/2019 5:55 AM EDT from Last 3 Months or Most Recently Relevant to Health Maintenance Results * XR shoulder right 2+ views (03/19/2025 1:03 AM EDT) Anatomical Region Laterality Modality Musculoskeletal, Upper Extremities, Shoulder Rig ht Computed Radiography 03/19/2025 1:12 AM EDT 03/19/2025 1:12 AM EDT Impressions 03/19/2025 1:11 AM EDT No acute findings. If concern for rotator cuff pathology, consider MRI MACRO: None Signed by: Damian Mederos 03/19/2025 1:11 AM Dictation workstation: [id number] Narrative 03/19/2025 1:11 AM EDT Interpreted By: Damian Mederos, STUDY: XR SHOULDER RIGHT 2+ VIEWS; ; 03/19/2025 1:03 am INDICATION: Signs/Symptoms:Pain. COMPARISON: None. ACCESSION NUMBER(S): [id number] ORDERING CLINICIAN: NIRAJ CHATAL FINDINGS: No evidence of acute fracture or malalignment. Some irregularity seen in the rotator cuff insertion which can be due to rotator cuff pathology. Procedure Note Damian Mederos MD - 03/19/2025 Interpreted By: Damian Mederos, STUDY: XR SHOULDER RIGHT 2+ VIEWS; ; 03/19/2025 1:03 am INDICATION: Signs/Symptoms:Pain. COMPARISON: None. ACCESSION NUMBER(S): [id number] ORDERING CLINICIAN: NIRAJ CHATAL FINDINGS: No evidence of acute fracture or malalignment. Some irregularity seen in the rotator cuff insertion which can be due to rotator cuff pathology. IMPRESSION: No acute findings. If concern for rotator cuff pathology, consider MRI MACRO: None Signed by: Damian Mederos 03/19/2025 1:11 AM Dictation workstation: [id number] Niraj Peterson COCOA MILL OPERATOR-CAR PACKER IMG XR PROCEDURES Final R esult * CT abdomen pelvis wo IV contrast (02/02/2025 12:17 AM EDT) Only the most recent of3 resultswithin the time period is included. Anatomical Region Laterality Modality Abdominal, Body Computed Tomogra phy 02/02/2025 12:5 7 AM EDT 02/02/2025 12:57 AM EDT Impressions 02/02/2025 12:56 AM EDT There is a 2-3 mm nonobstructing right renal calculus. Additional findings as described above. MACRO: None Signed by: Adriano Lugo 02/02/2025 12:56 AM Dictation workstation: [id number] Narrative 02/02/2025 12:56 AM EDT Interpreted By: Adriano Lugo, STUDY: CT ABDOMEN PELVIS WO IV CONTRAST; 02/02/2025 12:17 am INDICATION: Signs/Symptoms:right sided flank pain, hx stones. COMPARISON: CT scan of the abdomen pelvis 12/30/2024 ACCESSION NUMBER(S): [id number] ORDERING CLINICIAN: FISH CLANCY TECHNIQUE: Axial noncontrast [...] of the abdomen pelvis 12/30/2024 ACCESSION NUMBER(S): [id number] ORDERING CLINICIAN: FISH CLANCY TECHNIQUE: Axial noncontrast [...] Adriano Lugo 02/02/2025 12:56 AM Dictation workstation: [id number] us Fish R Wire PA-C IMG CT PROCEDURES Final Resu lt * CBC and Auto Differential (02/01/2025 11:24 PM EDT) Only the most recent of3 resultswithin the time period is included. WBC 5.7 4.4 - 11.3 x10*3/uL LAB HEMATOLOGY METHOD 02/01/2025 11:29 PM EDT [facility] nRBC 0.0 0.0 - 0.0 /100 WBCs LAB HEMATOLOGY METHOD 02/01/2025 11:29 PM EDT [facility] RBC 5.03 4.00 - 5.20 x10*6/uL LAB HEMATOLOGY METHOD 02/01/2025 11:29 PM EDT [facility] Hemoglobin 14.2 12.0 - 16.0 g/dL LAB HEMATOLOGY METHOD 02/01/2025 11:29 PM EDT [facility] Hematocrit 41.8 36.0 - 46.0 % LAB HEMATOLOGY METHOD 02/01/2025 11:29 PM EDT [facility] MCV 83 80 - 100 fL LAB HEMATOLOGY METHOD 02/01/2025 11:29 PM EDT [facility] MCH 28.2 26.0 - 34.0 pg LAB HEMATOLOGY METHOD 02/01/2025 11:29 PM EDT [facility] MCHC 34.0 32.0 - 36.0 g/dL LAB HEMATOLOGY METHOD 02/01/2025 11:29 PM EDT [facility] RDW 13.9 11.5 - 14.5 % LAB HEMATOLOGY METHOD 02/01/2025 11:29 PM EDT [facility] Platelets 181 150 - 450 x10*3/uL LAB HEMATOLOGY METHOD 02/01/2025 11:29 PM EDT [facility] Neutrophils % 53.5 40.0 - 80.0 % LAB HEMATOLOGY METHOD 02/01/2025 11:29 PM EDT [facility] Immature Granulocytes %, Automated 0.2 0.0 - 0.9 % LAB HEMATOLOGY METHOD 02/01/2025 11:29 PM EDT [facility] Comment:Immature Granulocyte Count (IG) includes promyelocytes, myelocytes and metamyelocytes but does not include bands. Percent differential counts (%) should be interpreted in the context of the absolute cell counts (cells/UL). Lymphocytes % 32.8 13.0 - 44.0 % LAB HEMATOLOGY METHOD 02/01/2025 11:29 PM EDT [facility] Monocytes % 9.1 2.0 - 10.0 % LAB HEMATOLOGY METHOD 02/01/2025 11:29 PM EDT [facility] Eosinophils % 3.7 0.0 - 6.0 % LAB HEMATOLOGY METHOD 02/01/2025 11:29 PM EDT [facility] Basophils % 0.7 0.0 - 2.0 % LAB HEMATOLOGY METHOD 02/01/2025 11:29 PM EDT [facility] Neutrophils Absolute 3.05 1.20 - 7.70 x10*3/uL LAB HEMATOLOGY METHOD 02/01/2025 11:29 PM EDT [facility] Comment:Percent differential counts (%) should be interpreted in the context of the absolute cell counts (cells/uL). Immature Granulocytes Absolute, Automated 0.01 0.00 - 0.70 x10*3/uL LAB HEMATOLOGY METHOD 02/01/2025 11:29 PM EDT [facility] Lymphocytes Absolute 1.87 1.20 - 4.80 x10*3/uL LAB HEMATOLOGY METHOD 02/01/2025 11:29 PM EDT [facility] Monocytes Absolute 0.52 0.10 - 1.00 x10*3/uL LAB HEMATOLOGY METHOD 02/01/2025 11:29 PM EDT [facility] Eosinophils Absolute 0.21 0.00 - 0.70 x10*3/uL LAB HEMATOLOGY METHOD 02/01/2025 11:29 PM EDT [facility] Basophils Absolute 0.04 0.00 - 0.10 x10*3/uL LAB HEMATOLOGY METHOD 02/01/2025 11:29 PM T [facility] Blood Venous blood specimen / Unknown Venipuncture / Unknown 02/01/2025 11:24 PM EDT 02/01/2025 11:28 PM EDT us Fish Clancy PA-C LAB BLOOD ORDERABLES Final R esult [facility] [address] [place] [address] * Magnesium (02/01/2025 11:24 PM EDT) [facility] Magnesium 1.98 1.60 - 2.40 mg/dL LAB CHEMISTRY METHOD 02/01/2025 11:55 PM EDT [facility] Blood Venous blood specimen / Unknown Venipuncture / Unknown 02/01/2025 11:24 PM EDT 02/01/2025 11:29 PM EDT Fish R Wire PA-C LAB BLOOD ORDERABLES Final R esult Performing Organization Address [facility] Co de Phone Number [facility] [address] [place] [address] * Lipase (02/01/2025 11:24 PM EDT) [facility] Lipase 22 9 - 82 U/L LAB CHEMISTRY METHOD 02/01/2025 11:55 PM EDT [facility] Blood Venous blood specimen / Unknown Venipuncture / Unknown 02/01/2025 11:24 PM EDT 02/01/2025 11:29 PM EDT Narrative [facility] - 02/01/2025 11:55 PM EDT Venipuncture immediately after or during the administration of Metamizole may lead to falsely low results. Testing should be performed immediately prior to Metamizole dosing. Fish R Wire PA-C LAB BLOOD ORDERABLES Final R esult Performing Organization Address [facility] Co de Phone Number [facility] [address] [place] [address] * Lactate (02/01/2025 11:24 PM EDT) Only the most recent of2 resultswithin the time period is included. [facility] Lactate 1.8 0.4 - 2.0 mmol/L LAB CHEMISTRY METHOD 02/01/2025 11:56 PM EDT [facility] Blood Venous blood specimen / Unknown Venipuncture / Unknown 02/01/2025 11:24 PM EDT 02/01/2025 11:29 PM EDT [facility] - 02/01/2025 11:56 PM EDT Venipuncture immediately after or during the administration of Metamizole may lead to falsely low results. Testing should be performed immediately prior to Metamizole dosing. us Fish Clancy PA-C LAB BLOOD ORDERABLES Final R esult [facility] [address] [place] [address] * (ABNORMAL) Comprehensive metabolic panel (02/01/2025 11:24 PM EDT) Only the most recent of3 resultswithin the time period is included. Glucose 378(H) 74 - 99 mg/dL LAB CHEMISTRY METHOD 02/01/2025 11:55 PM [facility] Sodium 139 136 - 145 mmol/L LAB CHEMISTRY METHOD 02/01/2025 11:55 PM [facility] Potassium 3.7 3.5 - 5.3 mmol/L LAB CHEMISTRY METHOD 02/01/2025 11:55 PM [facility] Chloride 101 98 - 107 mmol/L LAB CHEMISTRY METHOD 02/01/2025 11:55 PM [facility] Bicarbonate 29 21 - 32 mmol/L LAB CHEMISTRY [facility] Anion Gap 13 10 - 20 mmol/L LAB CHEMISTRY METHOD 02/01/2025 11:55 PM [facility] Urea Nitrogen 7 6 - 23 mg/dL LAB CHEMISTRY METHOD 02/01/2025 11:55 PM [facility] Creatinine 0.78 0.50 - 1.05 mg/dL LAB CHEMISTRY METHOD 02/01/2025 11:55 PM [facility] eGFR >90 >60 mL/min/1. 73m*2 LAB CHEMISTRY METHOD 02/01/2025 11:55 PM [facility] Comment: Calculations of estimated GFR are performed using the 2020 CKD-EPI Study Refit equation without the race variable for the IDMS-Traceable creatinine methods. https://jasn.asnjournals.org/content/early//ASN.3501920613 Calcium 9.6 8.6 - 10.3 mg/dL LAB CHEMISTRY METHOD 02/01/2025 11:55 PM EDT [facility] Albumin 4.5 3.4 - 5.0 g/dL LAB CHEMISTRY METHOD 02/01/2025 11:55 PM EDT [facility] Alkaline Phosphatase 72 33 - 110 U/L LAB CHEMISTRY METHOD 02/01/2025 11:55 PM EDT [facility] Total Protein 7.9 6.4 - 8.2 g/dL LAB CHEMISTRY METHOD 02/01/2025 11:55 PM EDT [facility] AST 14 9 - 39 U/L LAB CHEMISTRY METHOD 02/01/2025 11:55 PM EDT [facility] Bilirubin, Total 0.4 0.0 - 1.2 mg/dL LAB CHEMISTRY METHOD 02/01/2025 11:55 PM EDT [facility] ALT 16 7 - 45 U/L LAB CHEMISTRY METHOD 02/01/2025 11:55 PM EDT [facility] Comment:Patients treated wit h Sulfasalazine may generate falsely decreased results for ALT. Blood Venous blood specimen / Unknown Venipuncture / Unknown 02/01/2025 11:24 PM EDT 02/01/2025 11:29 PM EDT us Fish Clancy PA-C LAB BLOOD ORDERABLES Final R esult [facility] [address] [place] [address] * Extra Urine [place] Tube (02/01/2025 11:05 PM EDT) Only the most recent of3 resultswithin the time period is included. Extra Tube 02/02/2025 9:02 AM EDT [facility] Urine Urine specimen / Unknown 02/01/2025 11:05 PM EDT 02/01/2025 11:17 PM EDT [facility] URINE ORDERABLES Final Re sult Performing Organization Address [facility]/ZIP Co de Phone Number [facility] [address] [place] [address] * (ABNORMAL) Microscopic Only, Urine (02/01/2025 11:05 PM EDT) Only the most recent of3 resultswithin the time period is included. WBC, Urine 21-50(A) 1-5, NONE /HPF 02/01/2025 11:27 PM EDT [facility] RBC, Urine >20(A) NONE, 1-2, 3-5 /HPF 02/01/2025 11:27 PM EDT [facility] Squamous Epithelial Cells, Urine 10-25 (FEW) Reference range not established. /HPF 02/01/2025 11:27 PM EDT [facility] Urine Urine specimen / Unknown 02/01/2025 11:05 PM EDT 02/01/2025 11:17 PM EDT [facility] URINE ORDERABLES Final Re sult Performing Organization Address [facility] Co de Phone Number [facility] [address] [place] [phone] * (ABNORMAL) Urinalysis with Reflex Culture and Microscopic (02/01/2025 11:05 PM EDT) Only the most recent of3 resultswithin the time period is included. Color, Urine Colorless(N ) Light-Yello w, Yellow, Dark-Yellow 02/01/2025 11:27 PM EDT [facility] Appearance, Urine Turbid(N) Clear 02/01/2025 11:27 PM EDT [facility] Specific [place], Urine 1.010 1.005 - 1.035 LAB URINALYSIS - AUTOMATED METHOD 02/01/2025 11:27 PM EDT [facility] pH, Urine 7.0 5.0, 5.5, 6.0, 6.5, 7.0, 7.5, 8.0 02/01/2025 11:27 PM EDT [facility] Protein, Urine NEGATIVE NEGATIVE, 10 (TRACE), 20 (TRACE) mg/dL 02/01/2025 11:27 PM EDT [facility] Glucose, Urine OVER (4+)(A) Normal mg/dL 02/01/2025 11:27 PM EDT [facility] Blood, Urine OVER (3+)(A) NEGATIVE mg/dL 02/01/2025 11:27 PM EDT [facility] Ketones, Urine NEGATIVE NEGATIVE mg/dL 02/01/2025 11:27 PM EDT [facility] Bilirubin, Urine NEGATIVE NEGATIVE mg/dL 02/01/2025 11:27 PM EDT [facility] Urobilinogen, Urine Normal Normal mg/dL 02/01/2025 11:27 PM EDT [facility] Nitrite, Urine NEGATIVE NEGATIVE 02/01/2025 11:27 PM T [facility] Leukocyte Esterase, Urine 500 Matthew/uL(A) NEGATIVE 02/01/2025 11:27 PM [facility] Urine Urine specimen / Unknown 02/01/2025 11:05 PM EDT 02/01/2025 11:17 PM EDT [facility] - 02/01/2025 11:27 PM EDT OVER is reported when the result is greater than the clinically reportable range. us Grey Putnam DO LAB URINE ORDERABLES Final Re sult [facility] [address] [place] [address] * (ABNORMAL) Urine Culture (02/01/2025 11:05 PM EDT) Only the most recent of3 resultswithin the time period is included. Urine Culture Growth indicates contamination with Gram positive dianna. Repeat culture if clinically indicated. 02/03/2025 8:25 AM EDT [facility] Urine Culture <=10,000 CFU/mL Streptococcus agalactiae (Group B Streptococcus)(A ) MICROSCAN 02/03/2025 8:25 AM EDT [facility] Comment: Streptococcus agalactiae (Group B Streptococcus, GBS) may be significant in individuals. Recovery from non- individuals likely represents an insignificant finding. Routine GBS screening should be ordered using test G roup B Streptococcus (GBS) Screen, Culture ([id number]). Urine Urine specimen / Unknown 02/01/2025 11:05 PM EDT 02/01/2025 11:27 PM EDT Narrative [facility] - 02/03/2025 8:25 AM EDT Streptococcus agalactiae (Group B Streptococcus) is universally susceptible to beta-lactam antibiotics and vancomycin. Routine susceptibility testing not performed. For penicillin allergic patients, please contact the laboratory within 5 days of collection at to request susceptibility testing. Grey Putnam DO LAB MICROBIOLOGY - GENERAL OR DERABLES Final Result [facility] [id number] [place], [place] [id number] * ECG 12 lead (12/31/2024 4:15 PM EDT) Only the most recent of2 resultswithin the time period is included. Ventricular Rate 126 BPM MUSE Atrial Rate 126 BPM MUSE CO Interval 124 ms MUSE QRS Duration 88 ms MUSE QT Interval 332 ms MUSE QTC Calculation(Baze tt) 480 ms MUSE P [place] 56 degrees MUSE R [place] -8 degrees MUSE T [place] 58 degrees MUSE QRS Count 20 beats [...] on 01/23/2025 3:32:12 PM Procedure Note Kyle Monzon, COC[employer] MILL OPERATOR-CAR PACKER - 01/23/2025 Sinus tachycardia with Premature atrial [...] Kory Melendez 12/30/2024 4:21 AM Dictation workstation: [id number] Narrative 12/30/2024 4:21 AM EDT Interpreted By: Kory Melendez, STUDY: CT ANGIO CHEST FOR PULMONARY EMBOLISM; CT ABDOMEN PELVIS WO IV CONTRAST; 12/30/2024 3:15 am INDICATION: Signs/Symptoms:Right flank pain, chest pain, elevated D-dimer, tachycardia; Signs/Symptoms:History of kidney stones, right flank pain, tachycardia, vomiting. COMPARISON: None. ACCESSION NUMBER(S): [id number]; [id number] ORDERING CLINICIAN: GELY SILVERIO TECHNIQUE: Contiguous axial [...] pain, tachycardia, vomiting. COMPARISON: None. ACCESSION NUMBER(S): [id number]; [id number] ORDERING CLINICIAN: GELY SILVERIO TECHNIQUE: Contiguous axial [...] Kory Melendez 12/30/2024 4:21 AM Dictation workstation: [id number] Gely Silverio MD IMG CT PROCEDURES Final Re sult * (ABNORMAL) POCT GLUCOSE (12/30/2024 2:47 AM EDT) POCT Glucose 410(H) 74 - 99 mg/dL 12/30/2024 2:49 AM EDT [facility] Blood Capillary blood specimen / Unknown 12/30/2024 2:47 AM EDT 12/30/2024 2:49 AM EDT Gely Silverio MD LAB POINT OF CARE TEST DOCKED DEVICE UNSOLICITED RESULTS Final Result [facility] [address] [place] [address] * XR chest 1 view (12/30/2024 2:28 AM EDT) Anatomical Region Laterality Modality Thoracic, Chest Computed Radiogr aphy 12/30/2024 2:34 AM EDT 12/30/2024 2:34 AM EDT Impressions 12/30/2024 3:01 AM EDT No acute cardiopulmonary abnormality. Signed by Felix Zamarripa MD Narrative 12/30/2024 3:01 AM EDT STUDY: Chest Radiograph; 12/30/2024 2:28 AM INDICATION: Chest pain. COMPARISON: XR chest 08/07/2020. ACCESSION NUMBER(S): [id number] ORDERING CLINICIAN: GELY SILVERIO TECHNIQUE: Frontal chest was obtained at 02:28 hours. FINDINGS: CARDIOMEDIASTINAL SILHOUETTE: Cardiomediastinal silhouette is normal in size and configuration. LUNGS: Lungs are clear. ABDOMEN: No remarkable upper abdominal findings. BONES: No acute osseous changes. Procedure Note Felix Zamarripa MD - 12/30/2024 STUDY: Chest Radiograph; 12/30/2024 2:28 AM INDICATION: Chest pain. COMPARISON: XR chest 08/07/2020. ACCESSION NUMBER(S): [id number] ORDERING CLINICIAN: GELY SILVERIO TECHNIQUE: Frontal chest [...] Sensitivity, 1 Hour (12/30/2024 2:21 AM EDT) Pathologist [facility] Troponin I, High Sensitivity <3 0 - 13 ng/L LAB IMMUNOASSAY METHOD 12/30/2024 2:48 AM EDT [facility] Blood Venous blood specimen / Unknown Venipuncture / Unknown 12/30/2024 2:21 AM EDT 12/30/2024 2:23 AM EDT [facility] - 12/30/2024 2:48 AM EDT Less [...] performed using a different testing methodology at [facility] than at other [facility]. Direct result comparisons should only be made within the same method. Gely Silverio MD LAB BLOOD ORDERABLES Final Result Performing Organization Address City/[facility] Co de Phone Number [facility] [address] [place] [address] * Troponin I, High Sensitivity, Initial (12/30/2024 1:34 AM EDT) [facility] Troponin I, High Sensitivity 3 0 - 13 ng/L LAB IMMUNOASSAY METHOD 12/30/2024 2:06 AM EDT [facility] Blood Venous blood specimen / Unknown Venipuncture / Unknown 12/30/2024 1:34 AM EDT 12/30/2024 1:37 AM EDT [facility] - 12/30/2024 2:06 AM EDT Less [...] performed using a different testing methodology at [facility] than at other [facility]. Direct result comparisons should only be made within the same method. Gely Silverio MD LAB BLOOD ORDERABLES Final Result Performing Organization Address City/[facility]/ZIP Co de Phone Number [facility] [address] [place] [address] * (ABNORMAL) D-Dimer, VTE Exclusion (12/30/2024 1:34 AM EDT) D-Dimer, Quantitative VTE Exclusion 604(H) <=500 ng/mL FEU LAB COAGULATION METHOD 12/30/2024 1:52 AM EDT [facility] Blood Venous blood specimen / Unknown Venipuncture / Unknown 12/30/2024 1:34 AM EDT 12/30/2024 1:37 AM EDT Narrative [facility] - 12/30/2024 1:52 AM EDT The VTE Exclusion D-Dimer assay is reported in ng/mL Fibrinogen Equivalent Units (FEU). Per reinforcing iron worker helper's instructions for use, a value of less [...] Silverio MD LAB BLOOD ORDERABLES Final Result Performing Organization Address [facility] Co de Phone Number [facility] [address] [place] [address] from Last [address] [place] [address] [address] [place] [address] [employer] Care Teams Catering Sales Manager Relationship Specialty Start Date End Date Skye Jones APRN-JOLYNN [address] [place], [place] [id number] PCP - General 11/28/21
--- OUTSIDE RECORDS SUMMARY | 2025-03-22 20:53 | XMS_ITS | Encounter Summary ---
Author Organization [facility] Address [address] [place] [address] Care Team Providers Care Steel Layer Name Role Phone Skye Jones CNP Primary Care Provider [phone] Encounter Details Date Type Department Care Team (Late st Contact Info) Description 03/08/2025 Results Follow-Up [facility] [address] [place] [address] Yulissa Pike RPh,PharmD Urine Aerobic Culture Social History Tobacco Use Types Packs/Day Years Used Date Smoking Tobacco: Never Smokeless Tobacco: Never Alcohol Use Standard Drinks/Week Comments Never 0 (1 standard drink = 0.6 oz pur e alcohol) [facility] Utilities Answer Date Recorded In the past 12 months has e electric, gas, oil, or water [employer] threatened to shut off services in your [...] any time in the past 12 m [facility], were you homeless or living in a fdc (including now)? No 02/13/2025 Comments No Sex [...] documented as of this encounter Care Teams Steel Layer Relationship Specialty Start Date End Date Skye Jones CNP [address] [place] [address] PCP - General Nurse Practitioner 12/03/21 documented as of this encounter
--- OUTSIDE RECORDS SUMMARY | 2025-03-22 20:53 | XMS_ITS | Encounter Summary ---
Author Organization [facility] Address [address] [facility] [place] [address] Care Team Providers Care Revenue Agent Name Role Phone Jaron Solis MD Primary Care Provider [phone] Encounter Details Date Type Department Care Team (Late st Contact Info) Description 01/24/2024 Abstract [facility] [address] [address] Omi Watkins DO [address] [place], [place] [id number] Social History Tobacco Use Types Packs/Day Years [...] Description 05/18/2025 8:45 AM EST Office Visit [facility] [address] [facility] [place] [address] Omi Watkins DO [address] [place] [address] documented as of this encounter Visit Diagnoses Not on filedocumented in this encounter Care Teams Revenue Agent Relationship Specialty Start Date End Date Jaron Solis MD [address] [facility] [address] [place] [address] PCP - General Family Medicine 01/15/23 documented as of this encounter
--- OUTSIDE RECORDS SUMMARY | 2025-03-22 20:53 | XMS_ITS | Clinical Summary ---
Author Organization [facility] Address [address] [place] [address] Care Team Providers Care Fruit Sorter Name Role Phone Skye Jones CNP Primary Care Provider [phone] Allergies Active Allergy Reactions Criticality Noted Date Comments Aspirin Other (See Comments) Low 04/23/2011 Pt states gives me nosebleeds (epistaxis) Azithromycin Hives 06/17/2013 Ciprofloxacin Hives,Rash Medium 11/07/2019 Fentanyl Rash High [...] (300 mg total) by mouth nightly . 021 Active blood-glucose meter kit 1 kit by Other route 4 (four) times a day before meals and nightly . 021 Active tiZANidine (ZANAFLEX) 4 MG tablet Take 1 (one) tablet (4 mg total) by mouth 2 (two) times a day . 022 Active UltiCare Pen Needle 32 gauge x 5/32 Ndle USE 1 PEN NEEDLE 4 TIMES DAILY BEFORE MEAL(S) AND NIGHTLY 022 Active gabapentin (NEURONTIN) 600 MG tabletIndication s:neuropathic pain Take 1 (one) tablet (600 mg total) by mouth 2 (two) times a day Reasons: neuropathic pain. 022 Active promethazine (PHENERGAN) 25 MG tablet Take 1 (one) tablet (25 mg total) by mouth every 6 (six) hours as needed for nausea . 10 tablet 12/07/19 22 12:44 PM EDT 022 Active rosuvastatin (CRESTOR) 40 MG tablet Take [...] mouth 2 (two) times a day . 023 Active naloxone (NARCAN) 4 mg/actuation [place] Administer 1 spray into one nostril for known or suspected opioid overdose. If patient worsens or does not respond, may repeat in 2-3 minutes. . 2 each 1 024 Active hydrOXYzine (VISTARIL) 50 MG capsule Take 1 (one) capsule (50 mg total) by mouth every 6 (six) hours as needed for anxiety . Active albuterol 90 mcg/actuation inhaler Inhale 2 (two) puffs every 6 (six) hours as needed for wheezing . Active insulin lispro (AdmeLOG,HumaLOG ) 100 unit/mL injection [...] day as needed for nausea . Active metoprolol tartrate (LOPRESSOR) 25 MG tablet Take 1 (one) tablet (25 mg total) by mouth 2 (two) times a day . 60 tablet Active promethazine (PHENERGAN) 25 MG suppository Insert 1 (one) suppository (25 mg total) into the rectum every 6 (six) hours as needed for nausea Do not take within 6 hours of your other phenergan . 12 suppository Active oxyCODONE-acetam inophen (PERCOCET) 5-325 mg per tablet Take 1 (one) tablet by mouth every 6 (six) hours as needed for pain . Active ondansetron (ZOFRAN-ODT) 4 MG disintegrating tablet Dissolve 1 (one) tablet (4 mg total) on top of tongue every 6 to 8 hours as needed for nausea . 20 tablet Active promethazine (PHENERGAN) 25 MG tablet Take 1 (one) tablet (25 mg total) by mouth every 6 (six) hours as needed for nausea . 15 tablet Active metoclopramide (REGLAN) 10 MG tablet Take 1 (one) tablet (10 mg total) by mouth 4 (four) times a day as needed (N/V) . 12 tablet Active Mounjaro 7.5 mg/0.5 mL Pen 0.5 mL (7.5 mg total) by abdominal subcutaneous route once a week Thursday . 024 2024 Discontinued oxyCODONE-acetam inophen (PERCOCET) 5-325 mg per tabletIndication s:Kidney stones Take 1 (one) tablet by mouth every 6 (six) hours as needed (Days supply per fill: 3) . 12 tablet 02/18/20 4:11 PM EDT 025 2024 promethazine (PHENERGAN) 25 MG suppository Insert 1 (one) suppository (25 mg total) into the rectum every 6 (six) hours as needed for nausea . 5 each 025 2024 polyethylene glycol (GoLYTELY) 236-22.74-6.74 -5.86 gram solution Take 4,000 mL by mouth once for 1 dose . 4000 mL 025 2024 Active Problems Problem Noted Date Diagnosed Date Kidney stones 02/13/2025 Pyelonephritis 01/06/2025 Acute pyelonephritis 06/12/2024 UTI (urinary tract infection) 04/03/2024 Flank pain 02/24/2024 Hypotension 12/04/2021 Condyloma acuminatum due to human papillomavirus (HPV) 08/26/2021 Hematuria 02/01/2021 Chest pain 01/27/2021 Generalized abdominal pain 08/22/2020 Encounters Date Type Department Care Team Description 03/17/2025 10:06 AM EDT - 03/17/2025 5:18 PM EDT [facility] Emergency Department [address] [place] [phone] Suhail Salazar MD Discharge Disposition: Home 03/17/2025 Travel 03/10/2025 5:35 PM EDT - 03/10/2025 9:00 PM EDT Emergency [facility] Emergency Department [address] [place] [phone] Rivera Edwards MD Discharge Disposition: Home 03/10/2025 Travel 03/08/2025 Results Follow-Up [facility] [address] [place] [address] Yulissa Pike [facility],PharmD Urine Aerobic Culture 03/07/2025 6:24 PM EDT - 03/07/2025 9:36 PM EDT Emergency [facility] Emergency Department [address] [place] [address] Suhail Salazar MD Discharge Disposition: Home 03/07/2025 Travel 03/06/2025 10:09 PM EDT - 03/07/2025 3:00 AM EDT Emergency [facility] Emergency Department [address] [place] [address] Winsome Feng MD Discharge Disposition: Home 03/06/2025 Travel 02/13/2025 10:02 AM EDT - 02/17/2025 6:01 PM EDT Hospital Encounter [facility] [address] [place] [address] Isidoro Freire MD [facility], Generic Silvia Gonzalez MD Temu, Winnie Ernest, MD Discharge Disposition: Home 02/13/2025 Results Follow-Up [facility] [address] [place] [address] La Nena Avery RPh,PharmD Urine Aerobic Culture 02/13/2025 Travel 02/11/2025 8:50 PM EDT - 02/12/2025 12:14 AM EDT Emergency [facility] Emergency Department [address] [place] [address] Isis Mejía MD Discharge Disposition: Home 02/11/2025 Travel 01/06/2025 9:14 AM EDT - 01/08/2025 2:28 PM EDT Hospital Encounter [facility] [address] [place], [place] [phone] Tunde Peñaloza, Physicians, [facility] Trinh Aragon DO Chaluvadi, [place], MD [...] drink = 0.6 oz pur e alcohol) [facility] Utilities Answer Date Recorded In the past 12 months has e electric, gas, oil, or water company threatened [...] any time in the past 12 [address] [place] [place], were you homeless or living in a [...] Mass Index 42.29 03/17/2025 10:07 AM EDT Plan of Treatment Health Maintenance [...] 04/15/2021 Wellness Visit 08/26/2022 08/26/2021 COVID-19 Vaccine ( - 2023-2 5 season) 2025 Influenza Vaccine (#1) 2025 04/28/2024, 2017 Depression Screening/Follow- Up (PHQ-2/9) 04/04/2025 04/04/2024 A1C 05/28/2025 02/25/2025, 01/29, 01/06/2025, Additional history exists eGFR Diabetes 03/17/2026 03/17/2025, 03/10/2025, 03/07/2025, Additional history exists Tetanus: Every 10yrs 12/01/2032 12/01/2022 Cervical Cancer Screening Discontinued HPV/Cotest Discontinued 08/26/2021, 08/22/2020 Pap Smear Discontinued 08/26/2021, 08/22/2020 Pneumococcal Vaccine: Ped or At-Risk Completed 12/01/2022 Medical Devices Implanted Type Area Funeral Car Driver Device Identifier Shelf Expiration Date Model / Serial / Lot Stent 6 X 28 Contour W/O Wire - Sn/A Implanted:Qty: 1 on 01/30/2021 by Aleks Barbosa MD at [facility] Stent Right: Ureter [employer] U [id number] 11/07/2023 180-224 / N/A / [id number] Explanted Type Area Funeral Car Driver Device Identifier Shelf Expiration Date Model / Serial / Lot Stent 6fr X 26cm Ureter W/O Wire - Sn/A Explanted:Qty: 1 on 01/30/2021 at [facility] Stent [employer] U 11/13/2023 180-223 / N/A / [id number] Procedures Procedure Name Priority Date/Time Associated Diagnosis Comments POC GLUCOSE Timed 03/17/2025 2:27 PM EDT POC GLUCOSE - RALS Routine 03/17/2025 2: 26 PM EDT POC GLUCOSE Timed 03/17/2025 1:25 PM EDT POC GLUCOSE - RALS Routine 03/17/2025 1: 24 PM EDT POC VENOUS BLOOD GASES - RALS Routine 03/17/2025 11:20 AM EDT CBC WITH AUTO DIFFERENTIAL STAT 03/17/2025 11:12 AM EDT OBTAIN VENOUS BLOOD GASES AND PERFORM STAT 03/17/2025 11:12 AM EDT CBC AND DIFFERENTIAL STAT 03/17/2025 11:12 AM EDT BASIC METABOLIC PANEL STAT 03/17/2025 11:12 AM EDT DRUGS OF ABUSE SCREEN, URINE STAT 03/17/2025 11:07 AM EDT URINALYSIS STAT 03/17/2025 11:07 AM EDT URINE AEROBIC CULTURE ENOCH 03/17/2025 11:[address] KIDNEY STONE STAT 03/10/2025 6:31 PM EDT CBC WITH AUTO DIFFERENTIAL STAT 03/10/2025 6:11 PM EDT URINALYSIS STAT 03/10/2025 6:11 PM EDT CBC AND DIFFERENTIAL STAT 03/10/2025 6:11 PM EDT BASIC METABOLIC PANEL STAT 03/10/2025 6:11 PM EDT URINE AEROBIC CULTURE ENOCH 03/10/2025 6:11 PM EDT POC GLUCOSE STAT 03/07/2025 9:03 PM EDT POC GLUCOSE - RALS Routine 03/07/2025 9: 02 PM EDT POC GLUCOSE - RALS Routine 03/07/2025 8: 02 PM EDT CBC WITH AUTO DIFFERENTIAL STAT 03/07/2025 6:53 PM EDT URINALYSIS STAT 03/07/2025 6:53 PM EDT BASIC METABOLIC PANEL STAT 03/07/2025 6:53 PM EDT CBC AND DIFFERENTIAL STAT 03/07/2025 6:53 PM EDT URINE AEROBIC CULTURE ENOCH 03/07/2025 6:53 PM EDT POC GLUCOSE - RALS Routine 03/07/2025 1: 41 AM EDT POC VENOUS BLOOD GAS PANEL-PULM - RALS Routine 03/07/2025 1:[address] ABDOMEN PELVIS WITHOUT CONTRAST STAT 03/07/2025 1:03 AM EDT OBTAIN VENOUS BLOOD GASES AND PERFORM ENOCH 03/07/2025 12:53 AM EDT URINE AEROBIC CULTURE ENOCH 03/06/2025 10:34 PM EDT CBC WITH AUTO DIFFERENTIAL STAT 03/06/2025 10:33 PM EDT BETA-HYDROXYBUTYRATE STAT 03/06/2025 10:33 PM EDT URINE TIAN CONTAINER STAT 03/06/2025 10:33 PM EDT RAINBOW DRAW STAT 03/06/2025 10:33 PM EDT URINALYSIS STAT 03/06/2025 10:33 PM EDT COMPREHENSIVE METABOLIC PANEL STAT 03/06/2025 10:33 PM EDT CBC AND DIFFERENTIAL STAT 03/06/2025 10:33 PM EDT POC GLUCOSE - RALS Routine 02/17/2025 4: [...] Health Maintenance Results * (ABNORMAL) POC Glucose (03/17/2025 2:27 PM EDT) Only the most recent of6 resultswithin the time period is included. Glucose 477(A) 65 - 99 mg/dL Blood 03/17/2025 2:27 PM EDT Suhail Salazar MD POINT OF CARE TEST ORDERABLES Fi nal Result * (ABNORMAL) POC Glucose (03/17/2025 2:26 PM EDT) Only the most recent of36 resultswithin the time period is included. Glucose 477(HH) 65 - 99 mg/dL 03/17/2025 2:27 PM EDT LAB Blood BLOOD SPECIMEN / Unknown 03/17/2025 2:26 PM EDT 03/17/2025 2:27 PM EDT Narrative LAB - 03/17/2025 2:27 PM EDT Critical result acted upon time of test. Test performed at bedside. [facility] POCT ORDERABLES - DE VICE Final Result LAB [address] [place] [address] * (ABNORMAL) POC Venous Blood Gases (03/17/2025 [...] 11:20 AM EDT 03/17/2025 11:[address] [facility] Emergency [facility] POCT ORDERABLES - DE VICE Final Result LAB [address] [place] [address] * Obtain venous blood gases and perform (03/17/2025 11:12 AM EDT) Only the most recent of2 resultswithin the time period is included. Blood BLOOD SPECIMEN / Unknown Venipuncture / Unknown 03/17/2025 11:12 AM EDT 03/17/2025 11:16 AM EDT Suhail Salazar MD LAB BLOOD ORDERABLES Final Resul t LAB [address] [place] [address] * CBC Auto Differential (03/17/2025 11:12 AM EDT) Only the most recent of12 resultswithin the time period is included. WBC 4.52 4.50 - 11.00 K/mcL 03/17/2025 [...] LAB Eosinophils 1.3 % 03/17/2025 11:19 AM EDT LAB Basophils 0.9 % 03/17/2025 11:19 AM EDT LAB IG Percent 0.20 % 03/17/2025 11:19 [...] IG Absolute 0.01 0.00 - 0.30 K/mcL 03/17/2025 11:19 AM EDT LAB Blood BLOOD SPECIMEN / Unknown Venipuncture / Unknown 03/17/2025 11:12 AM EDT 03/17/2025 11:16 AM EDT us Suhail Salazar MD LAB BLOOD ORDERABLES Final Resul t LAB [address] [place] [address] * (ABNORMAL) BMP (03/17/2025 11:12 AM EDT) Only the most recent of9 resultswithin the time period is included. Sodium 131(L) 135 - 145 mmol/L 03/17/2025 [...] Narrative LAB - 03/17/2025 11:48 AM EDT [facility] Laboratory Services has implemented the eGFR calculation approach that does not have a coefficient for race that conforms to the NKF-ASN Task Force Recommendations. us Suhail Salazar MD LAB BLOOD ORDERABLES Final Resul t LAB [address] [place] [address] * Urine Drug Screen (03/17/2025 11:07 AM EDT) [facility] Amphetamine Screen, Urine None Detected None Detected [...] URINE ORDERABLES Final Result LAB [address] [place] [address] * (ABNORMAL) Urinalysis (03/17/2025 11:07 AM EDT) Only the most recent of7 resultswithin the time period is included. [facility] Signature Color, Urine Light Red(A) Colorless, Yellow 03/17/2025 11:28 AM EDT LAB Clarity, Urine Cloudy(A) Clear 03/17/2025 11:28 AM EDT LAB Specific Beverly 1.010 1.005 - 1.025 03/17/2025 11:28 AM EDT LAB pH, Urine 7.5(H) 5.0 - 7.0 03/17/2025 11:28 AM EDT LAB Protein, Urine Negative Negative mg/dL 03/17/2025 11:28 AM EDT LAB Glucose, Urine >=500(A) Negative mg/dL 03/17/2025 11:28 AM EDT LAB Ketones, Urine Trace(A) Negative mg/dL 03/17/2025 11:28 AM EDT LAB Bilirubin, Urine Negative Negative 03/17/2025 11:28 AM EDT LAB Urobilinogen, Urine <2.0 <2.0 mg/dL 03/17/2025 11:28 AM EDT LAB Blood, Urine Large(A) Negative 03/17/2025 11:28 AM EDT LAB Nitrite, Urine Negative Negative 03/17/2025 11:28 AM EDT LAB Leukocyte Esterase, Urine Negative Negative 03/17/2025 11:28 AM EDT LAB WBCs, Urine 1 0 - 5 /hpf 03/17/2025 11:28 AM EDT LAB RBCs, Urine >180(H) 0 - 3 /hpf 03/17/2025 11:28 AM EDT LAB Bacteria, Urine Rare(A) None Seen /hpf 03/17/2025 11:28 AM EDT LAB Squamous Epithelial 2 0 - 4 /hpf 03/17/2025 11:28 AM EDT LAB Urine URINE SPECIMEN / Unknown [...] URINE ORDERABLES Final Result LAB [address] [place] [address] * Urine Aerobic Culture (03/17/2025 11:07 AM EDT) Only the most recent of6 resultswithin the time period is included. Culture < 10,000 CFU/mL of normal urogenital microbiota 03/18/2025 1:32 PM EDT [facility] Culture Group B Streptococci present in quantity >= 10,000 CFU/mL. This patient should receive intrapartum antibiotic prophylaxis if . 03/18/2025 1:32 PM EDT [facility] Urine URINE SPECIMEN OBTAINED BY CLEAN CATCH PROCEDURE / Unknown Collection / Unknown 03/17/2025 11:07 AM EDT 03/17/2025 11:15 AM EDT us Suhail Salazar MD MICROBIOLOGY - GENERAL ORDERABLE S Final Result [facility] [address] [place] [address] * CT Kidney Stone (03/10/2025 6:31 PM EDT) Only the most recent of4 [...] is no acute bony pathology. Procedure Note Blanka Orellana MD - 03/10/2025 EXAMINATION: CT KIDNEY [...] appendix. Workstation ID: [id number] Rivera Edwards MD IM CT ORDERABLES Final Result * (ABNORMAL) POC Venous Blood Gas Panel-[facility] (03/07/2025 1:08 AM EDT) pH, Venous 7.38 7.32 - 7.42 03/07/2025 1:08 AM EDT POCT LAB pCO2, Reilly 49.0 41.0 - 51.0 mm Hg 03/07/2025 1:08 AM EDT POCT LAB pO2, Reilly 64(H) 25 - 40 mm Hg 03/07/2025 1:08 AM EDT POCT LAB Base Excess, Reilly 2.9(H) -2.0 - 2.0 03/07/20 1:08 AM EDT POCT LAB HCO3, Reilly 28.9(H) 24.0 - 28.0 mmol/L 03/07/2025 1:08 AM EDT POCT LAB Ionized Calcium 4.7 4.5 - 5.3 mg/dL 03/07/2025 1:08 AM EDT POCT LAB Lactic Acid 1.5 0.6 - 2.0 mmol/L 03/07/2025 1:08 AM EDT POCT LAB Hemoglobin, Blood Gas 12.4 12.0 - 16.0 g/dL 03/07/2025 1:08 AM EDT POCT LAB Hematocrit, Calculated 38.0 36.0 - 46.0 % 03/07/2025 1:08 AM EDT POCT LAB O2 Sat, Reilly 93.0(H) 40.0 - 70.0 % 03/07/2025 1:08 AM EDT POCT LAB O2 Hb 90.6 No established reference range % 03/07/2025 1:08 AM EDT POCT LAB Carboxyhemoglobin 2.2(H) <=1.5 % of total Hb 03/07/2025 1:08 AM EDT POCT LAB Comment: Reference Ranges: Suburban Non-smokers: <1.5% Smokers: 1.5-5.0% Heavy Smokers: 5.0-9.0% Methemoglobin 0.4 0.0 - 2.0 % 03/07/2025 1:08 AM EDT POCT LAB FIO2 21 03/07/2025 1:08 AM EDT POCT LAB Specimen Source Not specified 03/07/2025 1:08 AM EDT POCT LAB Sodium 142 135 - 145 mmol/L 03/07/2025 1:08 AM EDT POCT LAB Potassium 3.1(L) 3.5 - 5.1 mmol/L 03/07/2025 1:08 AM EDT POCT LAB Glucose 170(H) 65 - 99 mg/dL 03/07/2025 1:08 AM EDT POCT LAB Chloride 103 98 - 108 mmol/L 03/07/2025 1:08 AM EDT POCT LAB Blood BLOOD SPECIMEN / Unknown 03/07/2025 1:08 AM EDT 03/07/2025 1:05 AM EDT us Winsome Feng MD POCT ORDERABLES - DEVICE Fin al Result Performing Organization Address City/State/[facility] Co de Phone Number POCT LAB [address] [place] [address], [place] * CT Abdomen Pelvis Without Contrast (03/07/2025 1:03 AM EDT) Anatomical Region Laterality Modality Abdomen, Pelvis Computed Tomogra phy 03/07/2025 1:06 AM EDT Impressions 03/07/2025 1:32 AM EDT 1. Nonobstructive right renal calculus with no ureteral calculus seen. 2. Status post cholecystectomy and hysterectomy. 3. Normal appendix. [facility] Workstation ID: [id number] Narrative 03/07/2025 1:32 AM EDT EXAMINATION: CT ABDOMEN PELVIS WITHOUT CONTRAST HISTORY: ORDERING SYSTEM PROVIDED HISTORY: Abdominal/flank pain, stone suspected, TECHNOLOGIST PROVIDED HISTORY: Illness/Other Reason for exam: flank pain Encounter Type: Initial Additional signs and symptoms: abd pain, flank pain, stone suspected ORDERING SYSTEM PROVIDED DIAGNOSIS CODES: COMPARISON: CT abdomen and pelvis examination dated 02/16/2025. TECHNIQUE: CT examination of the abdomen and pelvis without IV contrast. Coronal and sagittal reformations were performed. Dose reduction techniques were achieved by using automated exposure control and/or adjustment of mA and/or kV according to patient size and/or use of iterative reconstruction technique. FINDINGS: There is mild bibasilar atelectasis. ABDOMEN: Please note that the sensitivity for detection of focal lesions or vascular disease is markedly reduced without intravenous contrast. The liver and spleen are unremarkable. There is no intra or extrahepatic biliary duct dilatation. The gallbladder is surgically absent. There is a 0.3 cm nonobstructive right renal calculus. The pancreas, adrenal glands, and bowel loops including the appendix, are unremarkable. There is no mesenteric or retroperitoneal lymphadenopathy. PELVIS: The bladder and rectum are unremarkable. There is no iliac or inguinal lymphadenopathy. The patient is status post a hysterectomy. Bone windows show no aggressive osseous lesions. Procedure Note Constantine Mcclain MD - 03/07/2025 EXAMINATION: CT ABDOMEN PELVIS WITHOUT CONTRAST HISTORY: ORDERING SYSTEM PROVIDED HISTORY: Abdominal/flank pain, stonesuspected, TECHNOLOGIST PROVIDED HISTORY: Illness/Other Reason for exam: flank pain Encounter Type: Initial Additional signs and symptoms: abd pain, flank pain, stone suspected ORDERING SYSTEM PROVIDED DIAGNOSIS CODES: COMPARISON: CT abdomen and pelvis examination dated 02/16/2025. TECHNIQUE: CT examination of the abdomen and pelvis without IV contrast. Coronal andsagittal reformations were performed. Dose reduction techniques were achieved by using automated exposurecontrol and/or adjustment of mA and/or kV according to patient size and/oruse of iterative reconstruction technique. FINDINGS: There is mild bibasilar atelectasis. ABDOMEN: Please note that the sensitivity for detection of focal lesionsor vascular disease is markedly reduced without intravenous contrast. The liver and spleen are unremarkable. There is no intra or extrahepaticbiliary duct dilatation. The gallbladder is surgically absent. There is a 0.3 cm nonobstructive right renal calculus. The pancreas, adrenal glands, and bowel loops including the appendix, areunremarkable. There is no mesenteric or retroperitoneal lymphadenopathy. PELVIS: The bladder and rectum are unremarkable. There is no iliac oringuinal lymphadenopathy. The patient is status post a hysterectomy. Bone windows show no aggressive osseous lesions. IMPRESSION: 1. Nonobstructive right renal calculus with no ureteral calculus seen. 2. Status post cholecystectomy and hysterectomy. 3. Normal appendix. [facility] Workstation ID: [id number] Vasyl Fernández Jr., PA-C IMG CT ORDERAB LES Final Result * Urine Tian Container (03/06/2025 10:33 PM EDT) Urine URINE SPECIMEN / Unknown Collection / Unknown 03/06/2025 10:33 PM EDT 03/06/2025 10:37 PM EDT Winsome Feng MD URINE ORDERABLES Final Resul t Performing Organization Address City/[facility] de Phone Number LAB [address] [place] [address] * Beta-Hydroxybutyrate (03/06/2025 10:33 PM EDT) Only the most recent of2 resultswithin the time period is included. Beta-Hydroxybut yrate 0.1 0.0 - 0.3 mmol/L 03/07/2025 1:01 AM EDT LAB Blood BLOOD SPECIMEN / Unknown Venipuncture / Unknown 03/06/2025 10:33 PM EDT 03/06/2025 10:37 PM EDT us Vasyl Fernández Jr., PA-C LAB BLOOD ORDE RABLES Final Result Performing Organization Address [facility] de Phone Number LAB [address] [place] [address] * (ABNORMAL) Comprehensive Metabolic Panel (03/06/2025 10:33 PM EDT) Only the most recent of3 resultswithin the time period is included. Sodium 135 135 - 145 mmol/L 03/06/2025 11:15 PM EDT LAB Potassium 3.8 3.5 - 5.1 mmol/L 03/06/2025 11:15 PM EDT LAB Comment:Slightly Hemolyzed Chloride 99 98 - 108 mmol/L 03/06/2025 11:15 PM EDT LAB Bicarbonate 23 21 - 32 mmol/L 03/06/2025 11:15 PM EDT LAB Anion Gap 17 10 - 20 mmol/L 03/06/2025 11:15 PM EDT LAB Glucose 417(HH) 65 - 99 mg/dL 03/06/2025 11:15 PM EDT LAB BUN 11 8 - 25 mg/dL 03/06/2025 11:15 PM EDT LAB Creatinine 0.79 0.40 - 1.10 mg/dL 03/06/2025 11:15 PM EDT LAB eGFR 92 >=60 mL/min/1.7 3 m2 03/06/2025 11:15 PM EDT LAB Comment:Estimated GFR was ca lculated using the 2020 CKD-EPI creatinine equation. BUN/Creatinine Ratio 13.9 10.0 - 20.0 03/06/2025 11:15 PM EDT LAB Total Protein 7.2 6.0 - 8.0 g/dL 03/06/2025 11:15 PM EDT LAB Albumin 4.2 3.2 - 5.2 g/dL 03/06/2025 11:15 PM EDT LAB Calcium 9.5 8.4 - 10.2 mg/dL 03/06/2025 11:15 PM EDT LAB Alkaline Phosphatase 83 40 - 150 U/L 03/06/2025 11:15 PM EDT LAB AST 22 0-35 U/L U/L 03/06/2025 11:15 PM EDT LAB Comment:Slightly Hemolyzed ALT 25 0-35 U/L U/L 03/06/2025 11:15 PM EDT LAB Total Bilirubin 0.3 0.0 - 1.3 mg/dL 03/06/2025 11:15 PM T LAB Blood BLOOD SPECIMEN / Unknown Venipuncture / Unknown 03/06/2025 10:33 PM EDT 03/06/2025 10:37 PM EDT Narrative LAB - 03/06/2025 11:15 PM EDT [facility] Laboratory Services has implemented the eGFR calculation approach that does not have a coefficient for race that conforms to the NKF-ASN Task Force Recommendations. us Winsome Feng MD LAB BLOOD ORDERABLES Final R esult LAB [address] [place] [address] * CT Abdomen Pelvis With IV Contrast Only (02/16/2025 2:44 PM EDT) Anatomical Region Laterality Modality Abdomen, Pelvis Computed Tomogra phy 02/17/2025 6:07 AM EDT Impressions 02/17/2025 6:51 AM EDT No specific finding to account for patient's symptoms. Right nonobstructing nephrolithiasis. [employer]/Outcome Referrals Workstation ID: [id number] Narrative 02/17/2025 6:51 AM [...] acute or aggressive osseous lesions. Procedure Note Kaveh Nunez, - 02/17/2025 EXAMINATION: CT ABDOMEN PELVIS WITH [...] account for patient's symptoms. Right nonobstructing nephrolithiasis. [facility]/hb Workstation ID: [id number] us Silvia Gonzalez MD IMG CT ORDERABLES Final Res ult * [facility] (02/15/2025 9:36 AM EDT) Case Report Medical Cytology Report Case: [id number] Authorizing Provider: Silvia Gonzalez MD Collected: 02/15/2025 09:36 AM Ordering Location: [facility] Received: 02/15/2025 01:39 PM Pathologist: German [...] fluid. 1 ThinPrep slide(s) Pap stained prepared. [facility] Cytology preparations processed at: [facility] - [address] [place] [address] 02/16/2025 8:10 AM EDT LAB Urine URINE SPECIMEN OBTAINED BY CLEAN CATCH PROCEDURE / Unknown 02/15/2025 9:36 AM EDT 02/15/2025 1:39 PM EDT us Silvia Gonzalez MD PATHOLOGY/CYTOLOGY ORDERABL ES Final Result LAB [address] [place] [address] * CT Urogram (02/14/2025 10:46 AM EDT) Anatomical Region Laterality Modality Abdomen, Pelvis Computed Tomogra phy 02/14/2025 2:46 PM EDT Impressions 02/14/2025 3:48 PM EDT 1. Punctate bilateral nephrolithiasis. No ureteral/bladder stone or hydronephrosis. 2. No suspicious KUB masses. 3. No acute process is identified in the abdomen or pelvis. 4. Moderate constipation. 5. Cholecystectomy and hysterectomy. [employer] Workstation ID: [id number] Narrative 02/14/2025 3:48 PM EDT EXAMINATION: CT UROGRAM HISTORY: ORDERING SYSTEM PROVIDED HISTORY: hematuria, TECHNOLOGIST PROVIDED HISTORY: Illness/Other Reason for exam: Hematuria Encounter Type: Initial Additional signs and symptoms: Right sided flank pain ORDERING SYSTEM PROVIDED DIAGNOSIS CODES: R65.10 SIRS (systemic inflammatory response syndrome) (HCC) N39.0 Acute UTI E11.00 Uncontrolled type 2 DM with hyperosmolar nonketotic hyperglycemia (HCC) COMPARISON: CT stone study February 13, 2025. [...] of stool in the cecum/ascending colon. Scattered [id number] stool in the remainder of the colon. Peritoneal cavity: No ascites. Reproductive: Hysterectomy. Vasculature: Minor atherosclerotic plaquing of the abdominal aorta. Osseous structures: No acute abnormality or aggressive bone lesions. Procedure Note Mariia Ludin Sanchezn, DO - 02/14/2025 EXAMINATION: CT UROGRAM HISTORY: [...] of stool in the cecum/ascending colon. Scattered siuh-vq-wovitniousqms in the remainder of the colon. Peritoneal cavity: No ascites. Reproductive: Hysterectomy. Vasculature: Minor atherosclerotic plaquing of the abdominal aorta. Osseous structures: No acute abnormality or aggressive bone lesions. IMPRESSION: 1. Punctate bilateral nephrolithiasis. No ureteral/bladder stone orhydronephrosis. 2. No suspicious KUB masses. 3. No acute process is identified in the abdomen or pelvis. 4. Moderate constipation. 5. Cholecystectomy and hysterectomy. [employer]enty/Appw[employer] Workstation ID: [id number] Lucrecia Stevens CLINICAL PRACTICE CONSULTANT IMG CT ORDERABLES Fi nal Result * Reflex Lactic Acid, Plasma (02/13/2025 3:27 PM EDT) Lactic Acid 1.8 0.6 - 2.0 mmol/L 02/13/2025 4:01 PM EDT LAB Blood BLOOD SPECIMEN / Unknown Venipuncture / Unknown 02/13/2025 3:27 PM EDT 02/13/2025 3:33 PM EDT Connie Ibanez CNP LAB BLOOD ORDERABLES Shira l Result LAB [address] [place] [address] * Blood Culture Aerobic/Anaerobic (02/13/2025 11:02 AM EDT) Only the most recent of2 resultswithin the time period is included. Culture No Growth after 5 days 02/18/2025 4:00 PM EDT [facility] Blood PERIPHERAL BLOOD SPECIMEN / Unknown Venipuncture / Unknown 02/13/2025 11:02 AM EDT 02/13/2025 11:12 AM EDT Connie Ibanez CNP MICROBIOLOGY - GENERAL OR DERABLES Final Result Performing Organization Address City/[facility]/ZIP Co de Phone Number [facility] [address] [place] [address] * Lipase (02/13/2025 11:02 AM EDT) Only the most recent of3 resultswithin the time period is included. Lipase 37 15 - 65 U/L 02/13/2025 11:48 AM EDT LAB Comment:Slightly Hemolyzed Blood BLOOD SPECIMEN / Unknown Venipuncture / Unknown 02/13/2025 11:02 AM EDT 02/13/2025 11:09 AM EDT [facility] LAB BLOOD ORDERABLES Shira l Result Performing Organization Address City/[facility] Co de Phone Number LAB [address] [place] [address] * (ABNORMAL) Lactic Acid (02/13/2025 11:02 AM EDT) Only the most recent of2 resultswithin the time period is included. Pathologist [facility] Lactic Acid 2.3(H) 0.6 - 2.0 mmol/L 02/13/2025 11:41 AM EDT LAB Blood BLOOD SPECIMEN / Unknown Venipuncture / Unknown 02/13/2025 11:02 AM EDT 02/13/2025 11:09 AM EDT [facility] LAB BLOOD ORDERABLES Shira l Result Performing Organization Address City/[facility] Co de Phone Number LAB [address] [place] [address] * (ABNORMAL) CBC (01/08/2025 5:14 AM EDT) WBC 5.05 4.50 - 11.00 K/mcL 01/08/2025 5:53 AM EDT [facility] RBC 4.56 4.00 - 5.20 M/mcL 01/08/2025 5:53 AM EDT [facility] Hemoglobin 12.7 12.0 - 16.0 g/dL 01/08/2025 5:53 AM EDT [facility] Hematocrit 39.2 36.0 - 46.0 % 01/08/2025 5:53 AM EDT [facility] MCV 86.0 80.0 - 100.0 fL 01/08/2025 5:53 AM EDT [facility] MCH 27.9 26.0 - 34.0 pg 01/08/2025 5:53 AM EDT [facility] MCHC 32.4 31.0 - 37.0 g/dL 01/08/2025 5:53 AM EDT [facility] Platelets 164 150 - 400 K/mcL 01/08/2025 5:53 AM EDT [facility] RDW - CV 14.0 11.6 - 14.8 % 01/08/2025 5:53 AM EDT [facility] MPV 9.3(L) 9.4 - 12.4 fL 01/08/2025 5:53 AM [facility] Nucleated RBC 0.0 % 01/08/2025 5:53 AM T [facility] Nucleated RBC Abs 0.00 0.00 - 0.00 K/mcL 01/08/2025 5:53 AM T [facility] Blood BLOOD SPECIMEN / Unknown Venipuncture / Unknown 01/08/2025 5:14 AM EDT 01/08/2025 5:40 AM EDT us Trinh Aragon DO LAB BLOOD ORDERABLES Shira l Result [facility] [address] [place] [address] * Hepatic Function Panel (01/07/2025 5:22 AM EDT) Total Protein 6.6 6.0 - 8.0 g/dL 01/07/2025 8:24 AM EDT [facility] Albumin 3.6 3.2 - 5.2 g/dL 01/07/2025 8:24 AM EDT [facility] Total Bilirubin 0.3 0.0 - 1.3 mg/dL 01/07/2025 8:24 AM EDT [facility] Bilirubin, Direct <0.2 0.0 - 0.4 mg/dL 01/07/2025 8:24 AM EDT [facility] Alkaline Phosphatase 74 40 - 150 U/L 01/07/2025 8:24 AM EDT [facility] AST 24 0-35 U/L U/L 01/07/2025 8:24 AM EDT [facility] ALT 23 0-35 U/L U/L 01/07/2025 8:24 AM EDT [facility] Blood BLOOD SPECIMEN / Unknown Venipuncture / Unknown 01/07/2025 5:22 AM EDT 01/07/2025 5:58 AM EDT Trinh Aragon DO LAB BLOOD ORDERABLES Shira l Result [facility] [address] [place] [address] * Tian Top (01/06/2025 9:39 AM EDT) Extra Tube Hold for add-ons. 01/06/2025 12:00 PM EDT [facility] Comment:Auto resulted. Blood BLOOD SPECIMEN / Unknown Venipuncture / Unknown 01/06/2025 9:39 AM EDT 01/06/2025 9:48 AM EDT Tunde Peñaloza DO LAB BLOOD ORDERABLES Fin al Result [facility] [address] [place] [address] * Gold Top (01/06/2025 9:38 AM EDT) Extra Tube Hold for add-ons. 01/06/2025 1:58 PM EDT [facility] Comment:Auto resulted. Blood BLOOD SPECIMEN / Unknown Venipuncture / Unknown 01/06/2025 9:38 AM EDT 01/06/2025 9:48 AM EDT Tunde Peñaloza DO LAB BLOOD ORDERABLES Fin al Result [facility] [address] [place] [address] * [place] Top (01/06/2025 9:38 AM EDT) Blood BLOOD SPECIMEN / Unknown Venipuncture / Unknown 01/06/2025 9:38 AM EDT 01/06/2025 9:48 AM EDT Tunde Peñaloza DO LAB BLOOD ORDERABLES Fin al Result [facility] [address] [place] [address] * (ABNORMAL) Chem 7 (01/06/2025 9:38 AM EDT) Sodium 137 135 - 145 mmol/L 01/06/2025 10:31 AM [facility] Potassium 4.3 3.5 - 5.1 mmol/L 01/06/2025 10:31 AM [facility] Chloride 101 98 - 108 mmol/L 01/06/2025 10:31 AM [facility] Bicarbonate 24 21 - 32 mmol/L 01/06/2025 10:31 AM [facility] Anion Gap 16 10 - 20 mmol/L 01/06/2025 10:31 AM [facility] Glucose 343(H) 65 - 99 mg/dL 01/06/2025 10:31 AM [facility] BUN 10 8 - 25 mg/dL 01/06/2025 10:31 AM [facility] Creatinine 0.58 0.40 - 1.10 mg/dL 01/06/2025 10:31 AM [facility] eGFR 111 >=60 mL/min/1.7 3 m2 01/06/2025 10:31 AM [facility] Comment:Estimated GFR was ca lculated using the 2020 CKD-EPI creatinine equation. BUN/Creatinine Ratio 17.2 10.0 - 20.0 01/06/2025 10:31 AM [facility] Blood BLOOD SPECIMEN / Unknown Venipuncture / Unknown 01/06/2025 9:38 AM EDT 01/06/2025 9:48 AM EDT Narrative [facility] - 01/06/2025 10:31 AM EDT [facility] has implemented the eGFR calculation approach that does not have a coefficient for race that conforms to the NKF-ASN Task Force Recommendations. Tunde Peñaloza DO LAB BLOOD ORDERABLES Fin al Result Performing Organization Address City/[facility]/ZIP Co de Phone Number [facility] [address] [place] [address] * Light Blue Top (01/06/2025 9:38 AM EDT) Extra Tube Hold for add-ons. 01/06/2025 12:00 PM EDT [facility] Comment:Auto resulted. Blood BLOOD SPECIMEN / Unknown Venipuncture / Unknown 01/06/2025 9:38 AM EDT 01/06/2025 9:48 AM EDT Tunde Peñaloza DO LAB BLOOD ORDERABLES Fin al Result Performing Organization Address [facility] Co de Phone Number [facility] [address] [place] [address] * hCG, Serum, QUALITATIVE (01/06/2025 9:38 AM EDT) Beta-hCG Qual Negative Negative 01/06/2025 10:31 AM EDT [facility] Blood BLOOD SPECIMEN / Unknown Venipuncture / Unknown 01/06/2025 9:38 AM EDT 01/06/2025 9:48 AM EDT Narrative [facility] - 01/06/2025 10:31 AM EDT Negative: The result is less than or equal to 5 mIU/mL of HCG. Tunde Peñaloza DO LAB BLOOD ORDERABLES Fin al Result Performing Organization Address City/[facility]/ZIP Co de Phone Number [facility] [address] [place] [address] * (ABNORMAL) Hemoglobin A1c (01/06/2025 9:38 AM EDT) Hemoglobin A1C 10.7(H) 4.2 - 5.6 % 01/06/2025 7:01 PM EDT [facility] Estimated Average Glucose 260(H) 74 - 114 mg/dL 01/06/2025 7:01 PM EDT [facility] Comment: Blood BLOOD SPECIMEN / Unknown Venipuncture / Unknown 01/06/2025 9:38 AM EDT 01/06/2025 9:48 AM EDT [facility] - 01/06/2025 7:01 PM EDT Normal: 4.2% - 5.6% Increased risk for diabetes: 5.7% - 6.4% Diabetes: >= 6.5% Pediatrics: No established reference range Estimated average glucose: 74-114 mg/dL Twyla Rivas MD LAB BLOOD ORDERABLES Final Result [facility] [address] [place] [address] * High Risk HPV with Genotype 16,18 (08/26/2021 3:41 PM EST) HPV 16 Negative Negative 08/31/2021 3:02 PM EST [facility] HPV 18 Negative Negative 08/31/2021 3:02 PM EST [facility] HPV, Other HR Types Negative Negative 08/31/2021 3:02 PM [facility] Pap, Liquid Based ENDOCERVICAL STRUCTURE / Unknown 08/26/2021 3:41 PM EST 08/29/2021 10:20 AM EST [facility] - 08/31/2021 3:02 PM EST Assay performed using Mariah Kristen [id number] system utilizing Real-Time PCR to amplify target HPV DNA. This system specifically identifies HPV16 and HPV18 while concurrently detecting the other twelve high risk types (31,33,35,39,45,51,52,56,58,59,66,68). us Shakila Doe MD BODY FLUIDS AND STOOLS O RDERABLES Final Result [facility] [address] [place] [address] * Thinprep Pap Smear (08/26/2021 3:41 PM EST) Case Report Gynecologic Cytology Report Case: [id number] Authorizing Provider: Shakila Doe MD Collected: 08/26/2021 03:41 PM Ordering Location: [facility] BONUS CLERK - An Received: 08/29/2021 10:20 AM [facility] First Screen: Lori Cao Rescreen: Carie Murillo Specimen: THINPREP PAP SMEAR, Cervix / Endocervix 09/03/2021 9:44 PM EST [facility] LMP unk 09/03/2021 9:44 PM [facility] Interpretation Negative for intraepithelial lesion or malignancy 09/03/2021 9:44 PM EST [facility] at 2144 EST Specimen Adequacy Satisfactory for evaluation; transformation zone/endocervical component present 09/03/2021 9:44 PM EST [facility] Educational Note The Pap smear is [...] from every slide are reviewed by a energy operations vice president. Specimen processing and Primary Screening performed at: [facility] - [address] [place] [address] 09/03/2021 9:44 PM EST [facility] HPV Results HPV 16 : Negative HPV 18 : Negative HPV, Other HR Types : Negative Assay performed using [id number] system utilizing Real-Time PCR to amplify target HPV DNA. This system specifically identifies HPV16 and HPV18 while concurrently detecting the other twelve high risk types (31,33,35,39,45,5 1,52,56,58,59,66, 68). These HPV results have been electronically added to this report as an aid for patient management. HPV testing performed at: [facility] - [address] [place] [address] 09/03/2021 9:44 PM EST [facility] Hysterectomy Yes 09/03/2021 9:44 PM EST [facility] Pap, Liquid Based ENDOCERVICAL STRUCTURE / Unknown 08/26/2021 3:41 PM EST 08/29/2021 10:20 AM EST Shakila Doe MD PATHOLOGY/CYTOLOGY ORDER RIC Final Result [facility] [address] [place] [address] from Last 3 Months or Most Recently Relevant to Health Maintenance Insurance [employer] [place] [address] [place] [address] MEDICAID Advance Directives For more information, please contact: [phone] * Full Code (Latest Code Status on [...] 1:04 AM 04/05/2024 7:58 PM Care Teams Fruit Sorter Relationship Specialty Start Date End Date Skye Jones CNP [address] [place] [address] PCP - General Nurse Practitioner 12/03/21
--- OUTSIDE RECORDS SUMMARY | 2025-03-22 20:53 | XMS_ITS | Encounter Summary ---
Author Organization [employer] [facility] [employer] Address [id number] [address] [place] [address] Care Team Providers Care Senior Data Mining Analyst Name Role Phone Skye Jones Primary Care Provider [phone] Encounter Details Date Type Department Care Team (Late st Contact Info) Description 09/30/2024 Orders Only [facility] [address] [place] [address] External, Scanning Provider Social History [...] Multiple labs (09/30/2024) us Scanning Provider External PA IMAGING Edite d Result - Final MANUALLY TRANSCRIBED RESULTS documented in this encounter Visit Diagnoses Not on filedocumented in this encounter Care Teams Senior Data Mining Analyst Relationship Specialty Start Date End Date Skye Jones [address] [place], [place] [id number] PCP - General Family Medicine 12/12/21 documented as of this encounter
--- OUTSIDE RECORDS SUMMARY | 2025-03-22 20:53 | XMS_ITS | Encounter Summary ---
Author Organization [facility] Address [address] [place] [address] Care Team Providers Care Rehabilitation Attendant Name Role Phone Skye Jones CNP Primary Care Provider [phone] Encounter Details Date Type Department Care Team (Latest Contact Info) Description 03/17/2025 Travel Social History Tobacco Use Types Packs/Day Years Used Date Smoking Tobacco: Never Smokeless Tobacco: Never Alcohol Use Standard Drinks/Week Comments Never 0 (1 standard drink = 0.6 oz pur e alcohol) [facility] Utilities Answer Date Recorded In the past 12 months has [employer], gas, oil, or water company threatened [...] any time in the past 12 [facility], were you homeless or living in [...] documented as of this encounter Care Teams Rehabilitation Attendant Relationship Specialty Start Date End Date Skye Jones CNP [address] [place] [id number] PCP - General Nurse Practitioner 12/03/21 documented as of this encounter
--- OUTSIDE RECORDS SUMMARY | 2025-03-22 20:53 | XMS_ITS | Clinical Summary ---
Author Organization [facility] tem Address [id number] [address] [place] [address] Care Team Providers Care Diesel Mechanic Apprentice Name Role Phone Skye Jones Primary Care Provider [phone] Allergies Active Allergy Reactions Criticality Noted Date [...] or so. Not requiring hospitalization. Plan: Cysto [facility] bladder solution. Standing order urine culture. upper tracts demonstrated on the CT scan were negative by report Nephrolithiasis 08/22/2024 Overview (08/22/2024): April 2024 CT scan [facility]. Small stone right upper pole [...] 9:36 PM 03/08/2023 5:59 PM Care Teams Diesel Mechanic Apprentice Relationship Specialty Start Date End Date Skye Jones [address] [place] [address] PCP - General Family Medicine 12/12/21
--- OUTSIDE RECORDS SUMMARY | 2025-03-22 20:53 | XMS_ITS | Encounter Summary ---
Author Organization [facility] Address [address] [facility] [place] [address] Care Team Providers Care Sound Controller Name Role Phone Jaron Solis MD Primary Care Provider [phone] Encounter Details Date Type Department Care Team (Late st Contact Info) Description 06/02/2023 Orders Only [facility] [address] [address] Omi Watkins DO [address] [place] [address] Status post shoulder surgery (Primary [...] 05/18/2025 8:45 AM EST Office Visit [facility] [address] [facility] [place] [address] Omi Watkins DO [address] [place] [address] documented as of this encounter Visit Diagnoses Diagnosis Status post shoulder surgery- Primary Other postprocedural status documented in this encounter Care Teams Sound Controller Relationship Specialty Start Date End Date Jaron Solis MD [address] [place] [address] PCP - General Family Medicine 01/15/23 documented as of this encounter
--- OUTSIDE RECORDS SUMMARY | 2025-03-22 20:53 | XMS_ITS | Encounter Summary ---
Author Organization [facility] [facility] Address [id number] [address] [place] [address] Care Team Providers Care Transport Tank Technician Name Role Phone Skye Jones Primary Care Provider [phone] Reason for Referral * Diagnostic Imaging (Routine) - Pending Review Specialty Diagnoses / Procedures Referred By Contac t Referred To Contact Radiology Diagnoses Pain Procedures CT brain without contrast [facility] [address] [place] [phone] Phone: tel: fax: Referral ID Status Reason Start Date Expiration Date V isits Requested Visits Authorized [id number] Pending Review 03/30/2024 03/30/2025 1 1 * Diagnostic Imaging (Routine) - Pending Review Specialty Diagnoses / Procedures Referred By Contac t Referred To Contact Radiology Diagnoses Pain Procedures CT cervical spine without contrast [facility] [address] [place] [phone] Phone: tel: fax: Referral ID Status Reason Start Date Expiration Date V isits Requested Visits Authorized [id number] Pending Review 03/30/2024 03/30/2025 1 1 * Diagnostic Imaging (Routine) - Pending Review Specialty Diagnoses / Procedures Referred By Contac t Referred To Contact Radiology Diagnoses Pain Procedures CT chest without contrast [facility] [address] [place] [phone] Phone: tel: fax: Referral ID Status Reason Start Date Expiration Date V isits Requested Visits Authorized [id number] Pending Review 03/30/2024 03/30/2025 1 1 * Diagnostic Imaging (Routine) - Pending Review Specialty Diagnoses / Procedures Referred By Contac t Referred To Contact Radiology Diagnoses Pain Procedures MR brain without contrast [facility] [address] [place] [phone] Phone: tel: fax: Referral ID Status Reason Start Date Expiration Date V isits Requested Visits Authorized [id number] Pending Review 03/30/2024 03/30/2025 1 1 Encounter Details Date Type Department Care Team (Late st Contact Info) Description 03/30/2024 Orders Only [facility] [address] [place] [phone] Transcribe, Orders Support User Pain (Primary Dx) [...] pain documented in this encounter Care Teams Transport Tank Technician Relationship Specialty Start Date End Date Skye Jones [address] [facility] [address] [facility] [address] [place] [address] PCP - General Family Medicine 12/12/21 documented as of this encounter
--- NOTE | 2025-03-22 21:31 | ED.GENADUL1 ---
HPI HPI - General Adult General Chief complaint: Weakness Stated complaint: DIZZY, LIGHT HEADED, SUGAR IS HIGH Time Seen by Provider: 03/22/25 20:47 Source: patient Mode of arrival: Wheelchair Limitations: no limitations History of Present Illness HPI narrative: This 49-year-old female with a history of diabetes and multiple other medical problems who is seen here recently for hyperglycemia and right sided numbness/pain presents for evaluation of similar complaints. The patient states she was at [employer]ae[employer] and felt lightheaded like she may pass out. She did not pass out. She was seen here several days ago and had hyperglycemia without DKA and the right sided numbness/pain. She had a CT scan done at that time that was normal. The patient is ambulatory. She is moving all around the bed without any notable difficulty or weakness. She states she has been working nights for the past 3 months. 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 She states she barely ate anything today but her sugar has been running high. She is nauseated but has not vomited. She denies any chest pain or shortness of breath. She has not had any fever. She does states that she intermittently gets chills and sweats. She is status post hysterectomy and not going through menopause. I did review her OARRS report. She gets multi prescription for gabapentin from her primary care provider and in the past year has had 19 providers prescribing her controlled substances that are reportable to OARRS. Related Data Home Medications ?Medication ?Instructions ?Recorded ?Confirmed gabapentin 600 mg tablet 600 mg PO Q8H 12/30/22 03/04/25 metoprolol tartrate 25 mg tablet 50 mg PO Q12H 12/30/22 03/04/25 tizanidine 4 mg tablet 4 mg PO Q8H PRN spasms 12/30/22 03/04/25 trazodone 100 mg tablet 200 mg PO BEDTIME 12/30/22 11/14/24 olanzapine 5 mg tablet 5 mg PO BID 01/17/23 03/04/25 duloxetine 60 mg capsule,delayed 60 mg PO DAILY 07/19/23 03/04/25 release (Cymbalta) insulin glargine 100 unit/mL (3 40 unit subcut QPM 07/21/23 03/04/25 mL) subcutaneous pen (Lantus Solostar U-100 Insulin) meclizine 25 mg tablet 25 mg PO TID PRN dizziness 07/21/23 03/04/25 hydroxyzine pamoate 50 mg capsule 50 mg PO TID PRN anxiety 08/13/23 03/04/25 loratadine 10 mg tablet (Allergy 10 mg PO DAILY 03/24/24 03/04/25 Relief (loratadine)) naloxone 4 mg/actuation nasal spray 1 spray intranasal Q3M PRN opioid 03/24/24 08/07/24 overdose cholecalciferol (vitamin D3) 25 25 mcg PO QWEEK 08/07/24 03/04/25 mcg (1,000 unit) tablet colesevelam 625 mg tablet 625 mg PO BID 08/07/24 03/04/25 empagliflozin 25 mg tablet 25 mg PO DAILY 08/07/24 03/04/25 (Jardiance) lidocaine 5 % topical patch 1 patch topical .Q12HRs 08/07/24 11/14/24 oxycodone-acetaminophen 5 mg-325 1 tab PO QPM PRN pain 08/07/24 11/14/24 mg tablet promethazine 25 mg tablet 25 mg PO Q6H PRN nausea and 08/07/24 11/14/24 vomiting rosuvastatin 40 mg tablet 40 mg PO DAILY 08/07/24 03/04/25 tirzepatide 7.5 mg/0.5 mL 7.5 mg subcut QWEEK 08/07/24 03/04/25 subcutaneous pen injector (Marilee) blood-glucose sensor (FreeStyle 11/14/24 11/14/24 Myron 3 Sensor device) ondansetron HCl 4 mg tablet mg 11/14/24 pantoprazole 40 mg tablet,delayed 40 mg PO DAILY 11/14/24 03/04/25 release trazodone 300 mg tablet 300 mg PO BEDTIME 11/14/24 03/04/25 aripiprazole 20 mg tablet 20 mg PO DAILY 03/04/25 03/04/25 Allergies Allergy/AdvReac Type Severity Reaction Status Date / Time melon Allergy Severe Anaphylaxis Verified 03/22/25 21:34 fentanyl Allergy Unknown Unknown Verified 03/22/25 21:34 ketorolac (From Toradol) Allergy Unknown Unknown Verified 03/22/25 21:34 meperidine (From Demerol) Allergy Unknown Unknown Verified 03/22/25 21:34 morphine Allergy Unknown Unknown Verified 03/22/25 21:34 nalbuphine (From Nubain) Allergy Unknown Unknown Verified 03/22/25 21:34 Penicillins Allergy Unknown Unknown Verified 03/22/25 21:34 aspirin AdvReac Unknown NOSE BLEEDS Verified 03/22/25 21:34 Opioid HPI Opioid Management Most Recent Opioid Data: Last Pain Scale 8 03/04/25, 09:44 Last ORT Total Score 3 03/28/24, 21:04 Last ORT Risk Category Low Risk 03/28/24, 21:04 Ur Phencyclidine Scrn, (NEGATIVE) Negative 07/21/23, 18:35 PFSH PFSH Medical History (Updated 03/22/25 @ 22:47 by Grace Servin MD) Syncope ?R55 - Syncope and collapse (ICD-10) Headache ?R51.9 - Headache, unspecified (ICD-10) Obesity ?E66.9 - Obesity, unspecified (ICD-10) HLD (hyperlipidemia) ?E78.5 - Hyperlipidemia, unspecified (ICD-10) Migraine headache ?G43.909 - Migraine, unspecified, not intractable, without status migrainosus (ICD-10) Depression with anxiety ?F41.8 - Other specified anxiety disorders (ICD-10) UTI (urinary tract infection) ?N39.0 - Urinary tract infection, site not specified (ICD-10) Kidney calculi ?N20.0 - Calculus of kidney (ICD-10) GERD (gastroesophageal reflux disease) ?K21.9 - Gastro-esophageal reflux disease without esophagitis (ICD-10) Diabetes ?E11.9 - Type 2 diabetes mellitus without complications (ICD-10) Surgical History (Updated 03/28/24 @ 21:25 by Minerva Merchant) History of cholecystectomy ?Z90.49 - Acquired absence of other specified parts of digestive tract (ICD-10) H/O oophorectomy H/O: hysterectomy ?Z90.710 - Acquired absence of both cervix and uterus (ICD-10) Family History (Updated 03/28/24 @ 21:26 by Minerva Merchant) Mother Family history of hypertension Social History (Updated 03/28/24 @ 21:27 by Minerva Merchant) Within the past year, how often did you have a drink containing alcohol: never Score interpretation: A score less than 3 is consistent with normal alcohol consumption. 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 Highest level of school completed/degree received: some college, no degree Are you now , , , , never or living with a partner: In a typical week, how many times do you talk on the telephone with family, friends, or neighbors: 3 or more times per week How often do you get together with friends or relatives: 3 or more times per week How often do you attend mandaeism or gnosticist services: 4 or more times per year Little interest or pleasure in doing things: not at all Feeling down, depressed, or hopeless: not at all Feel stressed/tense/nervous/anxious/difficulty sleeping: only a little Do you think of yourself as: straight/heterosexual Gender Identity: female Exam Constitutional Vital Signs, click to edit/add: Last Vital Signs Temp 98.1 F 03/22/25 20:49 Pulse 107 H 03/22/25 20:49 Resp 14 03/22/25 20:49 BP 142/105 H 03/22/25 20:49 Pulse Ox 98 03/22/25 20:49 O2 Del Method Room Air 03/22/25 20:49 Course Vital Signs Vital signs: Vital Signs Temperature 98.1 F 03/22/25 20:49 Pulse Rate 107 H 03/22/25 20:49 Respiratory Rate 14 03/22/25 20:49 Blood Pressure 142/105 H 03/22/25 20:49 Pulse Oximetry 98 03/22/25 20:49 Oxygen Delivery Method Room Air 03/22/25 20:49 Temperature 98.1 F 03/22/25 20:49 Pulse Rate 107 H 03/22/25 20:49 Respiratory Rate 14 03/22/25 20:49 Blood Pressure 142/105 H 03/22/25 20:49 Pulse Oximetry 98 03/22/25 20:49 Oxygen Delivery Method Room Air 03/22/25 20:49 Medical Decision Making MDM Narrative Medical decision making narrative: This 49-year-old female with a history of diabetes and multiple medical issues presents for evaluation of dizziness and lightheadedness. She states she was at [employer]ae[employer] tonight and felt dizzy. She thought her sugar was high. She states she did not eat much today, she states she only had cereal and a salad. She also complains of right sided numbness/pain. She was seen in this emergency department earlier this week for similar complaints. At that time she had a full workup including a CT scan of the brain. She did not have any neurologic findings at that time and does not have any neurologic findings at this time. Despite complaining of numbness and pain she is fully mobile, able to take her shoes off and put them back on without difficulty. She was ambulatory to the room. She denies any chest pain or shortness of breath. 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 She was noted to be markedly hyperglycemic when she was in the emergency department over the weekend. An IV was placed and she was given IV fluids while we awaited routine labs. She has a normal white count and hemoglobin. Venous pH is 7.36. Acetone is negative. Electrolyte panel is normal with the exception of a glucose of 323. BUN, creatinine and liver function tests are normal. She has a normal CO2 at 27.9. There is no concerning findings for DKA. Urinalysis was contaminated with epithelial cells but does not show any sign of acute infection. In addition to the fluid she was given a dose of Zofran for nausea. The results of her labs were discussed with her. She will be discharged home at this time with a prescription for Zofran. She also requests a note for work. Lab Data Labs: Lab Results 03/22/25 03/22/25 Range/Units 21:40 21:47 WBC 5.1 (4.0-11.0) 10^3/uL RBC 4.58 (4.20-5.40) 10^6/uL Hgb 13.2 (12.0-16.0) g/dL Hct 38.5 (36.0-48.0) % MCV 84.1 (81.0-99.0) fL MCH 28.8 (26.7-34.0) pg MCHC 34.3 (29.9-35.2) g/dL RDW 13.9 (11.0-15.0) % Plt Count 200 (150-450) 10^3/uL MPV 9.4 L (9.5-13.5) fL Neut % (Auto) 54.4 (43.0-75.0) % Lymph % (Auto) 32.5 (20.5-60.0) % L[place]kin % (Auto) 9.5 (1.7-12.0) % Eos % (Auto) 2.6 (0.9-7.0) % Baso % (Auto) 0.8 (0.2-2.0) % Neut # (Auto) 2.8 (1.4-6.5) 10^3/uL Lymph # (Auto) 1.7 (1.2-3.8) 10^3/uL [place]kin # (Auto) 0.5 (0.3-0.8) 10^3/uL Eos # (Auto) 0.1 (0.0-0.7) 10^3/uL Baso # (Auto) 0.0 (0.0-0.1) 10^3/uL Abs Immat Gran (auto) 0.01 (0.00-0.03) 10^3/uL Imm/Tot Granulo (auto) 0.2 (0.0-0.5) % VBG pH 7.369 (7.330-7.430) VBG pCO2 47.9 (40.0-52.0) mmHg Sodium 136 (136-145) mmol/L Potassium 3.3 L (3.5-5.1) mmol/L Chloride 101 (98-107) mmol/L Carbon Dioxide 27.9 (21.0-32.0) mmol/L Anion Gap 10.4 BUN 9.0 (7.0-18.0) mg/dL Creatinine 0.75 (0.55-1.02) mg/dL Est GFR ( Amer) >60 (>=60 mL/min/1.73m^2) Est GFR (Non-Af Amer) >60 (>=60 mL/min/1.73m^2) BUN/Creatinine Ratio 12.0 Glucose 323 H (74-106) mg/dL Calcium 9.2 (8.5-10.1) mg/dL Total Bilirubin 0.4 (0.2-1.0) mg/dL AST 27 (15-37) U/L ALT 48 (14-59) U/L Alkaline Phosphatase 93 (46-116) U/L Total Protein 7.5 (6.4-8.2) g/dL Albumin 3.5 (3.4-5.0) g/dL Globulin 4.0 g/dL Albumin/Globulin Ratio 0.9 Urine Color Lt. yellow (YELLOW) Urine Clarity Clear (CLEAR) Urine pH 6.0 (5.0-9.0) Ur Specific [place] 1.020 (1.005-1.025) Urine Protein Negative (NEG/TRACE) mg/dL Urine Glucose (UA) >=1000 A (NEGATIVE) mg/dL Urine Ketones Negative (NEGATIVE) mg/dL Urine Occult Blood Trace-i (NEGATIVE) Urine Nitrite Negative (NEGATIVE) Urine Bilirubin Negative (NEGATIVE) Urine Urobilinogen 0.2 (0.2-1.0) EU/dL Ur Leukocyte Esterase Negative (NEGATIVE) Urine RBC 0-2 (0-2) #/HPF Urine WBC 2-5 A (NONE SEEN) #/HPF Ur Squamous Epith Cells Many A (NONE/RARE) #/LPF Urine Crystals None seen (None Seen) #/HPF Urine Bacteria Large A (NONE SEEN) #/HPF Urine Casts None seen (NONE SEEN) #/LPF Urine Mucus Trace A (NONE SEEN) Urine Yeast Seen A (NONE SEEN) Ur Culture Indicated? Yes-[facility] [place] Acetone, Qual Negative (NEGATIVE) Discharge Plan Discharge Chief Complaint: Weakness Clinical Impression: Hyperglycemia, Chronic pain syndrome Patient Disposition: Home, Self-Care Time of Disposition Decision: 22:46 Condition: Good Prescriptions / Home Meds: No Action olanzapine 5 mg tablet 5 mg PO BID Rx Instructions: HS duloxetine [Cymbalta] 60 mg capsule,delayed release(DR/EC) 60 mg PO DAILY insulin glargine [Lantus Solostar U-100 Insulin] 100 unit/mL (3 mL) insulin pen 40 unit SUBCUT QPM meclizine 25 mg tablet 25 mg PO TID PRN (Reason: dizziness) hydroxyzine pamoate 50 mg capsule 50 mg PO TID PRN (Reason: anxiety) loratadine [Allergy Relief (loratadine)] 10 mg tablet 10 mg PO DAILY naloxone 4 mg/actuation spray,non-aerosol 1 spray INTRANASAL Q3M PRN (Reason: opioid overdose) ondansetron HCl 4 mg tablet pantoprazole 40 mg tablet,delayed release (DR/EC) 40 mg PO DAILY trazodone 300 mg tablet 300 mg PO BEDTIME (DME) FreeStyle Myron 3 Sensor Device MISCELLANEOUS aripiprazole 20 mg tablet 20 mg PO DAILY gabapentin 600 mg tablet 600 mg PO Q8H metoprolol tartrate 25 mg tablet 50 mg PO Q12H tizanidine 4 mg tablet 4 mg PO Q8H PRN (Reason: spasms) trazodone 100 mg tablet 200 mg PO BEDTIME cholecalciferol (vitamin D3) 25 mcg (1,000 unit) tablet 25 mcg PO QWEEK colesevelam 625 mg tablet 625 mg PO BID Jardiance 25 mg tablet 25 mg PO DAILY lidocaine 5 % adhesive patch,medicated 1 patch topical .Q12HRs Patient Comments: 12 on and 12 off oxycodone-acetaminophen 5-325 mg tablet 1 tab PO QPM PRN (Reason: pain) promethazine 25 mg tablet 25 mg PO Q6H PRN (Reason: nausea and vomiting) rosuvastatin 40 mg tablet 40 mg PO DAILY Mounjaro 7.5 mg/0.5 mL pen injector 7.5 mg SUBCUT QWEEK Print Language: Georgian Instructions: Chronic Pain (ED), Diabetic Hyperglycemia (ED) Referrals: JIE LEE INDUSTRIAL SOCIOLOGIST [Primary Care Provider] - 1 week
[2025-03-22] MEDS: 0.9 % SODIUM CHLORIDE 1,000 ML 1000 ML IV (21:42)
[2025-03-22 21:53] LABS: Hematocrit 38.5 % (36.0-48.0); Hemoglobin 13.2 g/dL (12.0-16.0); Immature Granulocytes Abs Auto 0.01 10^3/uL (0.00-0.03); Immature Granulocytes Pct Auto 0.2 % (0.0-0.5); Lymphocytes Absolute Auto 1.7 10^3/uL (1.2-3.8); Mean Corpuscular HGB Conc 34.3 g/dL (29.9-35.2); Mean Corpuscular Hemoglobin 28.8 pg (26.7-34.0); Mean Corpuscular Volume 84.1 fL (81.0-99.0); Platelet Count 200 10^3/uL (150-450); Red Blood Count 4.58 10^6/uL (4.20-5.40); White Blood Count 5.1 10^3/uL (4.0-11.0)
[2025-03-22 21:55] LABS: Glucose Urine UA >=1000 mg/dL (NEGATIVE)
[2025-03-22 22:09] LABS: Alanine Aminotransferase 48 U/L (14-59); Albumin Globulin Ratio 0.9; Albumin Level 3.5 g/dL (3.4-5.0); Alkaline Phosphatase 93 U/L (46-116); Anion Gap 10.4; Aspartate Amino Transferase 27 U/L (15-37); Blood Urea Nitrogen 9.0 mg/dL (7.0-18.0); Calcium 9.2 mg/dL (8.5-10.1); Carbon Dioxide 27.9 mmol/L (21.0-32.0); Chloride 101 mmol/L (98-107); Estimated GFR (African America >60 (>=60 mL/min/1.73m^2); Estimated GFR (Non-African Ame >60 (>=60 mL/min/1.73m^2); Globulin 4.0 g/dL; Glucose 323 mg/dL (74-106); PCO2 VBG 47.9 mmHg (40.0-52.0); Potassium 3.3 mmol/L (3.5-5.1); Sodium 136 mmol/L (136-145); Total Protein 7.5 g/dL (6.4-8.2); pH VBG 7.369 (7.330-7.430)
[2025-03-22 22:18] LABS: Cast Seen? NONE SEEN #/LPF (NONE SEEN); Crystals Seen? None Seen #/HPF (None Seen); Urine Culture Indicated YES-FRMC
[2025-03-22 23:02] VITALS: O2SAT 98
== END 2025-03-22 23:04 | disposition home or self-care (01) ==
PROVIDERS: Emergency Provider Emergency Medicine; PCP Nurse Practitioner Family
DX: E11.65 Type 2 diabetes mellitus with hyperglycemia (principal); G89.4 Chronic pain syndrome; Z90.710 Acquired absence of both cervix and uterus; Z79.4 Long term (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 of insulin
CPT/HCPCS: 36415; 80053; 81001; 82009; 82800; 85025; 87086; 96361; 96374; 99284; J2405

== ENCOUNTER 2025-04-04 20:54 | Emergency (ER) | payer OTHER, SELFPAY ==
[2025-04-04] VITALS (12 sets, daily range): BP systolic 93–133; BP diastolic 64–85; PULSE 118; TEMP 36.9; O2SAT 92–99; BMI 41.5
--- OUTSIDE RECORDS SUMMARY | 2025-04-04 21:22 | XMS_ITS | Encounter Summary ---
Author Organization [facility] Address [address] 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 Primary Care Pr ovider Encounter Details Date Type Department Care Team (Late st Contact Info) Description 03/26/2025 Orders Only [facility] [address] [place] [address] Wilmer Ayoub, DO [address] [place] [address] Social History Tobacco Use Types Packs/Day Years [...] Procedure Name Priority Date/Time Associated Diagnosis Comments [facility] EXTRA BLUE Routine 03/26/2025 3:18 AM EDT [facility] CBC W/ AUTO DIFF Routine 03/26/2025 3:18 AM EDT [facility] BMP Routine 03/26/2025 3:18 AM EDT [facility] LIPASE LEVEL Routine 03/26/2025 3:18 AM EDT [facility] HEP FUNC PANEL Routine 03/26/2025 3:18 AM EDT [facility] EGFR Routine 03/26/2025 3:18 AM EDT [facility] UA WITH CULT RFLX SP Routine 03/26/2025 1:41 AM EDT [facility] UA WITH CULT RFLX Routine 03/26/2025 1:41 AM EDT [facility] H[facility] C URINE Routine 03/26/2025 1: 41 AM EDT documented in this encounter Results * [facility] EXTRA BLUE (03/26/2025 3:18 AM EDT) [facility] TUBE COLLECTED PLASMA Yes [facility] Lab- Blood 03/26/2025 3 :18 AM EDT Wilmer Ayoub DO LAB BLOOD ORDERABLES Final Resu lt Performing Organization Address City/[facility]/ZIP Co de Phone Number [facility] [address] [place] [address], [place] * [facility] eGFR (03/26/2025 3:18 AM EDT) [facility] EGFR 109 >=59 mL/min/1.[address] [facility] Lab- Blood 03/26/2025 3 :18 AM EDT us Wilmer Ayoub DO LAB BLOOD ORDERABLES Final Resu lt Performing Organization Address City/[facility]/ZIP Co de Phone Number [facility] [address] [place] [address], [place] * (ABNORMAL) [facility] Lipase Level (03/26/2025 3:18 AM EDT) [facility] LIPASE LVL 6(L) 13 - 58 unit/L [facility] Lab- Blood 03/26/2025 3 :18 AM EDT Wilmer Ayoub DO LAB BLOOD ORDERABLES Final Resu lt Performing Organization Address City/[facility]/ZIP Co de Phone Number [facility] [address] [place] [address], [place] * [facility] Hep Func Panel (03/26/2025 3:18 AM EDT) [facility] H[facility] ALT 21 6 - 46 Int._Unit/ L [facility] H[facility] AST 15 5 - 43 Int._Unit/ L [facility] ALBUMIN LVL 4.0 3.3 - 5.0 gm/dL [facility] GLOBULIN 3.3 1.4 - 4.0 gm/dL [facility] A/G RATIO 1.2 1.1 - 2.2 [facility] ALK PHOS 78 21 - 98 Int._Unit/ L [facility] BILI DIRECT 0.1 0.0 - 0.4 mg/dL [facility] BILI INDIRECT 0.5 0.1 - 0.9 mg/dL [facility] BILI TOTAL 0.6 0.0 - 1.1 mg/dL [facility] TOTAL PROTEIN 7.3 6.0 - 7.8 gm/dL [facility] Lab- Blood 03/26/2025 3 :18 AM EDT Wilmer Ayoub DO LAB BLOOD ORDERABLES Final Resu lt Performing Organization Address City/[facility]/ZIP Co de Phone Number [facility] [address] [id number], [place] * (ABNORMAL) [facility] BMP (03/26/2025 3:18 AM EDT) [facility] GLUCOSE LVL 289(H) 55 - 199 mg/dL [facility] BUN 9 5 - 21 mg/dL [facility] CREATININE 0.6 0.5 - 1.3 mg/dL [facility] BUN/CREAT RATIO 15 10 - [address] [facility] CALCIUM LVL 9.1 8.9 - 11.1 mg/dL [facility] SODIUM LVL 136 135 - 145 mmol/L [facility] POTASSIUM LVL 3.1(L) 3.5 - 5.3 mmol/L [facility] CHLORIDE 100(L) 101 - 111 mmol/L [facility] CO2 26 21 - 31 mmol/L [facility] AGAP 13 6 - 16 mEq/L [facility] Lab- Blood 03/26/2025 3 :18 AM EDT us Wilmer Ayoub DO LAB BLOOD ORDERABLES Final Resu lt [facility] [address] [place] [address], [place] * (ABNORMAL) [facility] CBC w/ Auto Diff (03/26/2025 3:18 AM EDT) [facility] WBC 3.7(L) 4.0 - 11.0 E9/L [facility] RBC 4.8 4.3 - 5.9 E12/L [facility] HGB 14.4 12.0 - 16.0 gm/dL [facility] HCT 40.7 34.0 - 46.0 % [facility] RDW 15.5(H) 10.9 - 14.2 % [facility] MCH 29.9 27.0 - 34.[address] [facility] MCHC 35.3 31.4 - 36.0 gm/dL [facility] MCV 84.7 80.0 - 100.[address] [facility] MPV 7.2 6.4 - 10.[address] [facility] PLATELET 204.0 150.0 - 500.0 E9/L [facility] NEUTRO AUTO 57.1 36.0 - 75.0 % [facility] LYMPH AUTO 27.3 14.0 - 50.0 % [facility] MONO AUTO 12.4 4.0 - 14.0 % [facility] EOS AUTO 2.5 0.0 - 8.0 % [facility] BASOPHIL AUTO 0.7 0.0 - 2.0 % [facility] NEUTRO ABSOLUTE 2.1 2.0 - 7.5 E9/L [facility] LYMPH ABSOLUTE 1.0 1.0 - 4.0 E9/L [facility] MONO ABSOLUTE 0.5 0.2 - 1.0 E9/L [facility] EOS ABSOLUTE 0.1 0.0 - 0.5 E9/L [facility] BASOPHIL ABSOLUTE 0.0 0.0 - 0.2 E9/L [facility] Lab- Blood 03/26/2025 3 :18 AM EDT us Wilmer Ayoub DO LAB BLOOD ORDERABLES Final Resu lt [facility] [address] [place] [address], * [facility] HIE C Urine (03/26/2025 1:41 AM EDT) [facility] U CleanCatch 03/26/2025 1:[address] [facility] - 03/28/2025 11:57 AM EDT Microbiology PROCEDURE: Urine Culture [R1] SOURCE: U CleanCatch BODY SITE: COLLECTED DATE/TIME: 03/26/2025 01:41 EDT RECEIVED DATE/TIME: 03/26/2025 04:14 EDT START DATE/TIME: 03/26/2025 04:14 EDT FREE TEXT SOURCE: Wilmer Ayoub DO, DO, Wilmre Lawton. FINAL REPORTS Final Report [] Verified Date/Time: 03/28/2025 11:57 EDT 25,000 cfu/ml Mixed skin contaminants Mixed dianna (multiple species present) Performing Locations R1: This test was performed at: [facility], [address] [place] [address], [facility] , [place], Wilmer Ayoub DO LAB BLOOD ORDERABLES Final Resu lt [address] [address], * (ABNORMAL) [facility] UA WITH CULT RFLX (03/26/2025 1:41 AM EDT) [facility] UA Color Yellow Yellow [facility] Comment:Microscopic readings are only performed on those samples that meet specific criteria set forth by [facility]. [facility] H[facility] UA Clarity Turbid(A) Clear [facility] H[facility] UA Spec Grav 1.043 1.005 - 1.030 [facility] H[facility] UA pH 6.0 5.0 - 9.0 [facility]IS [facility] H[facility] UA Protein Trace(A) Negative mg/dL [facility] UA Glucose 4+(A) Negative mg/dL [facility] UA Ketones 1+(A) Negative mg/dL [facility] UA Bili Negative Negative mg/dL [facility] UA Blood 3+(A) Negative mg/dL [facility] UA Nitrite Negative Negative mg/dL [facility] UA Urobilinogen Negative Negative mg/dL [facility] UA Leuk Est 25 Matthew/uL Negative CD:[id number] [facility] H[facility] UA WBC 16-25(A) 0 - 5 CD:[id number] 3 [facility] UA RBC >75(A) 0 - 3 CD:[id number] 3 [facility] UA Squam Epithelial >10 CD:[id number] [address] [facility] UA Bacteria 2+(A) Trace /HPF [facility] UA MUCOUS 1+(A) Negative CD:[id number] 1 [facility] Lab- Urine 03/26/2025 1 :41 AM EDT Wilmer Ayoub DO LAB BLOOD ORDERABLES Final Resu lt Performing Organization Address City/[facility]/ZIP Co de Phone Number [facility] [address] [place] [address], [place] * [facility] UA WITH CULT RFLX SP (03/26/2025 1:41 AM EDT) [facility] UA Spec Desc Catheter [facility] Lab- Urine 03/26/2025 1 :41 AM EDT us Wilmer Ayoub DO LAB BLOOD ORDERABLES Final Resu lt Performing Organization Address City/[facility]/ZIP Co de Phone Number [facility] [address] [place] [address], [place] documented in this encounter Visit Diagnoses Not on filedocumented in this encounter Care Teams Bean Sorter Relationship Specialty Start Date End Date Skye Jones APRN-JOLYNN [address] [place], [place] [id number] PCP - General 11/28/21 documented as of this encounter
--- OUTSIDE RECORDS SUMMARY | 2025-04-04 21:22 | XMS_ITS | Encounter Summary ---
Author Organization [facility] Address [address] [facility] [place] [address] Care Team Providers Care Aromatherapist Name Role Phone Jaron Solis MD Primary Care Provider [phone] Encounter Details Date Type Department Care Team (Late st Contact Info) Description 06/02/2023 Orders Only [facility] [address] [place] [address] Omi Watkins DO [address] [place] [address] Status post shoulder surgery (Primary [...] 05/18/2025 8:45 AM EST Office Visit [facility] [address] [facility] [address] Omi Watkins DO [address] [place] [address] documented as of this encounter Visit Diagnoses Diagnosis Status post shoulder surgery- Primary Other postprocedural status documented in this encounter Care Teams Aromatherapist Relationship Specialty Start Date End Date Jaron Solis MD [address] [place] [address] PCP - General Family Medicine 01/15/23 documented as of this encounter
--- OUTSIDE RECORDS SUMMARY | 2025-04-04 21:22 | XMS_ITS | Encounter Summary ---
Author Organization [facility] Address [address] [place] [address] Phone Care Team Providers Care Technical Spec Name Role Phone Skye Jones Primary Care Pr ovider Encounter Details Date Type Department Care Team (Late st Contact Info) Description 02/04/2025 Results Follow-Up [facility] [address] [place] [address] Werner Jules, PharmD [address] [place] [address] Urine Culture Social History Tobacco Use Types [...] on filedocumented in this encounter Care Teams Technical Spec Relationship Specialty Start Date End Date Skye Jones APRN-CNP [address] [place], [place] [id number] PCP - General 11/28/21 documented as of this encounter
--- OUTSIDE RECORDS SUMMARY | 2025-04-04 21:22 | XMS_ITS | Clinical Summary ---
Author Organization [facility] Address [address] [place] [address] Care Team Providers Care Cooling Machine Operator Name Role Phone Jaron Solis MD Primary Care Provider [phone] Allergies Active Allergy Reactions Criticality Noted Date Comments Aspirin Unknown Low 04/23/2011 Pt states gives me nosebleeds nosebleeds Pt states gives me nosebleeds nosebleeds nosebleeds Azithromycin 01/05/2025 Charentais Melon (Yemeni Melon) Hives,Swelling 01/28/2024 Ciprofloxacin Hives,Rash Medium 11/07/2019 [...] Continuous Glucose Sensor (FreeStyle Myron 2 Sensor) [facility] 4 Active Lantus SoloStar 100 UNIT/ML pen Acti ve insulin lispro (HumaLOG) 100 UNIT/ML injection 4 Active Drug [place] Unifine Pentips Plus 32G X 4 MM [facility] 4 Active meclizine (Antivert) 25 MG tablet Take 25 mg by mouth every 8 (eight) hours if needed 4 Active pantoprazole (ProtoNix) 40 MG EC tablet Take 40 mg by mouth in the morning. Active Jardiance 25 MG Take 25 mg by mouth Daily 4 Active albuterol HFA 90 mcg/act inhaler Inhale 2 puffs every 6 (six) hours if needed Active Continuous Glucose Soap Boiler (FreeStyle Myron 3 [place]) device 5 Active fluticasone (Flonase) 50 MCG/ACT [...] Description 03/16/2025 2:15 PM EDT Office Visit [facility] [address] [place] [address] Omi Watkins, DO S/P arthroscopy of left shoulder (Primary Dx) 03/16/2025 Bamboo flowsheet [facility] [address] [place] [phone] Omi Watkins DO 03/16/2025 Travel 01/05/2025 9:15 AM EDT [facility] [address] [place] [address] Omi Watkins DO Arthrofibrosis of right shoulder (Primary Dx) 01/05/2025 Bamboo flowsheet [facility] [address] [place] [phone] Omi Watkins DO 01/05/2025 Travel from Last [...] Description 05/18/2025 8:45 AM EST [facility] [address] [place] [phone] Omi Watkins DO [address] [place] [address] Insurance Care Teams Cooling Machine Operator Relationship Specialty Start Date End Date Jaron Solis MD [address] [place], [place] [id number] PCP - General Family Medicine 01/15/23
--- OUTSIDE RECORDS SUMMARY | 2025-04-04 21:22 | XMS_ITS | Encounter Summary ---
Author Organization [facility] Address [address] [place] [address] Care Team Providers Care Crime Prevention Worker Name Role Phone Jaron Solis MD Primary Care Provider Encounter Details Date Type Department Care Team (Late st Contact Info) Description 01/24/2024 Abstract [facility] [address] [address] Omi Watkins DO [address] [place], [place] [id number] Social History Tobacco Use Types Packs/Day Years [...] [facility] [address] [place] [address] Omi Watkins DO [address] [place] [address] documented as of this encounter Visit Diagnoses Not on filedocumented in this encounter Care Teams Crime Prevention Worker Relationship Specialty Start Date End Date Jaron Solis MD [address] [place] [address] PCP - General Family Medicine 01/15/23 documented as of this encounter
--- OUTSIDE RECORDS SUMMARY | 2025-04-04 21:22 | XMS_ITS | Encounter Summary ---
Author Organization [facility] Address [address] [place] [address] Phone Care Team Providers Care Seed Core Operator Name Role Phone Skye Jones Primary Care Pr ovider Encounter Details Date Type Department Care Team (Late st Contact Info) Description 05/02/2020 Orders Only [facility] [address] [place] [address] Conversion, Onbase Social History Tobacco Use Types [...] on filedocumented in this encounter Care Teams Seed Core Operator Relationship Specialty Start Date End Date Skye Jones APRN-CNP [address] [place] [address] PCP - General 11/28/21 documented as of this encounter
--- OUTSIDE RECORDS SUMMARY | 2025-04-04 21:22 | XMS_ITS | Clinical Summary ---
Author Organization [facility] Address [address] [place] [address] Phone Care Team Providers Care Nuclear Fuel Processing Technician Name Role Phone Skye Jones TEST MAN-HYDROCHLORIC ACID OPERATOR Primary Care Pr ovider Allergies Active Allergy [...] 08/22/2024 Overview (12/12/2024): April 2024 CT scan [facility]. Small stone right upper pole on left [...] some point to monitor stone. Acute pancreatitis ([facility]) 01/26/2024 Constipation 06/07/2023 Depressive disorder 03/29/2023 AMS (altered mental status) 03/06/2023 Malingerer 05/11/2022 Hypotension 12/04/2021 Hematuria 02/01/2021 Encounters Date Type Department Care Team Description 03/26/2025 Orders Only [facility] [address] [place] [address] Wilmer Ayoub DO 03/19/2025 12:15 AM EDT - 03/19/2025 2:19 AM EDT [facility] [place] [facility] [address] [place] [phone] Acute pain of right shoulder (Primary Dx) Discharge Disposition: Home 03/19/2025 Travel 02/04/2025 Results Follow-Up [facility] [address] [place] [address] Werner Jules, PharmD Urine Culture 02/04/2025 Telephone [facility] [address] [place] [phone] Werner Jules, PharmD Results 02/01/2025 11:14 PM EDT - 02/02/2025 1:30 AM EDT [facility] [place] [facility] [address] [place] [phone] Flank pain (Primary Dx) Discharge Disposition: Home 02/01/2025 Travel 01/03/2025 11:12 AM EDT - 01/03/2025 12:21 PM EDT [facility] [place] [facility] [address] [place] [phone] Teto Butler MD Flank pain (Primary Dx) Discharge Disposition: Against Medical Advice 01/03/2025 Telephone [facility] [address] [place] [phone] Jennifer Nowak, PharmD Results 01/03/2025 Travel from Last 3 Months Social History [...] (1 of 2) 2025 Diabetes: Hemoglobin A1C 05/28/20252 025, 01/06/2025, 02/24/2024, Additional history exists DTaP/Tdap/Td [...] Routine 03/26/2025 3:18 AM EDT [facility] HIE C URINE Routine 03/26/2025 1: 41 AM EDT [facility] H[facility] UA WITH CULT RFLX Routine 03/26/2025 1:41 AM EDT [facility] H[facility] UA WITH CULT RFLX SP Routine 03/26/2025 1:41 AM EDT XR SHOULDER 2+ VIEWS RIGHT STAT 03/19/2025 1:03 AM EDT ECG 12-LEAD STAT 03/19/2025 12:[address] ABDOMEN PELVIS WO IV [...] URINE CULTURE STAT 02/01/2025 11:05 PM EDT HEMOGLOBIN A1C Routine 11/08/2019 5:55 AM EDT from Last 3 Months or Most Recently Relevant to Health Maintenance Results * [facility] H[facility] EXTRA BLUE (03/26/2025 3:18 AM EDT) [facility] H[facility] TUBE COLLECTED PLASMA Yes [facility]- Blood 03/26/2025 3 :18 AM EDT us Wilmer Ayoub DO LAB BLOOD ORDERABLES Final Resu lt [facility] [address] [place] [address], [place] * (ABNORMAL) [facility] H[facility] CBC w/ Auto Diff (03/26/2025 3:18 AM EDT) [facility] H[facility] WBC 3.7(L) 4.0 - 11.0 E9/L [facility] H[facility] RBC 4.8 4.3 - 5.9 E12/L [facility] H[facility] HGB 14.4 12.0 - 16.0 gm/dL [facility] H[facility] HCT 40.7 34.0 - 46.0 % [facility] H[facility] RDW 15.5(H) 10.9 - 14.2 % [facility] HIE MCH 29.9 27.0 - 34.0 pg [facility] HIE MCHC 35.3 31.4 - 36.0 gm/dL [facility] HIE MCV 84.7 80.0 - 100.0 fL [facility] HIE MPV 7.2 6.4 - 10.8 fL [facility] HIE PLATELET 204.0 150.0 - 500.0 E9/L [facility] HIE NEUTRO AUTO 57.1 36.0 - 75.0 % [facility] H[facility] LYMPH AUTO 27.3 14.0 - 50.0 % [facility] H[facility] MONO AUTO 12.4 4.0 - 14.0 % [facility] H[facility] EOS AUTO 2.5 0.0 - 8.0 % [facility] HIE BASOPHIL AUTO 0.7 0.0 - 2.0 % [facility] NEUTRO ABSOLUTE 2.1 2.0 - 7.5 E9/L [facility] LYMPH ABSOLUTE 1.0 1.0 - 4.0 E9/L [facility] MONO ABSOLUTE 0.5 0.2 - 1.0 E9/L [facility] EOS ABSOLUTE 0.1 0.0 - 0.5 E9/L [facility] BASOPHIL ABSOLUTE 0.0 0.0 - 0.2 E9/L [facility] Lab- Blood 03/26/2025 3 :18 AM EDT Wilmer Jered Ayoub DO LAB BLOOD ORDERABLES Final Resu lt Performing Organization Address City/[facility]/ZIP Co de Phone Number [facility] [address] [place] [address], [place] * (ABNORMAL) [facility] HIE BMP (03/26/2025 3:18 AM EDT) [facility] HIE GLUCOSE LVL 289(H) 55 - 199 mg/dL [facility] H[facility] BUN 9 5 - 21 mg/dL [facility] H[facility] CREATININE 0.6 0.5 - 1.3 mg/dL [facility] BUN/CREAT RATIO 15 10 - 20 No Units [facility] HIE CALCIUM LVL 9.1 8.9 - 11.1 mg/dL [facility] H[facility] SODIUM LVL 136 135 - 145 mmol/L [facility] H[facility] POTASSIUM LVL 3.1(L) 3.5 - 5.3 mmol/L [facility] HIE CHLORIDE 100(L) 101 - 111 mmol/L [facility] H[facility] CO2 26 21 - 31 mmol/L [facility] AGAP 13 6 - 16 mEq/L [facility] Lab- Blood 03/26/2025 3 :18 AM EDT Wilmer Ayoub DO LAB BLOOD ORDERABLES Final Resu lt Performing Organization Address City/[facility]/ZIP Co de Phone Number [facility] [address] [place] [phone], [place] * (ABNORMAL) [facility] HIE Lipase Level (03/26/2025 3:18 AM EDT) [facility] H[facility] LIPASE LVL 6(L) 13 - 58 unit/L [facility] Lab- Blood 03/26/2025 3 :18 AM EDT Wilmer Ayoub DO LAB BLOOD ORDERABLES Final Resu lt Performing Organization Address City/[facility] Co de Phone Number [facility] [address] [place] [address], [place] * [facility] HIE Hep Func Panel (03/26/2025 3:18 AM EDT) [facility] NON-[facility] HIE ALT 21 6 - 46 Int._Unit/ L [facility] HIE AST 15 5 - 43 Int._Unit/ L [facility] HIE ALBUMIN LVL 4.0 3.3 - 5.0 gm/dL [facility] H[facility] GLOBULIN 3.3 1.4 - 4.0 gm/dL [facility] H[facility] A/G RATIO 1.2 1.1 - 2.2 [facility] H[facility] ALK PHOS 78 21 - 98 Int._Unit/ L [facility] H[facility] BILI DIRECT 0.1 0.0 - 0.4 mg/dL [facility] H[facility] BILI INDIRECT 0.5 0.1 - 0.9 mg/dL [facility] HIE BILI TOTAL 0.6 0.0 - 1.1 mg/dL [facility] H[facility] TOTAL PROTEIN 7.3 6.0 - 7.8 gm/dL [facility] Lab- Blood 03/26/2025 3 :18 AM EDT Wilmer Ayoub DO LAB BLOOD ORDERABLES Final Resu lt Performing Organization Address City/[facility]/ZIP Co de Phone Number [facility] [address] [phone], [place] * [facility] HIE eGFR (03/26/2025 3:18 AM EDT) Pathologist [facility] NON-[facility] HIE EGFR 109 >=59 mL/min/1.7 3 m2 [facility] Lab- Blood 03/26/2025 3 :18 AM EDT Wilmer Lawton Mega DO LAB BLOOD ORDERABLES Final Resu lt Performing Organization Address City/[facility]/[place] [address], [place] * [facility] HIE UA WITH CULT RFLX SP (03/26/2025 1:41 AM EDT) Pathologist [facility] NON-[facility] HIE UA Spec Desc Catheter [facility] Lab- Urine 03/26/2025 1 :41 AM EDT Wilmer Ayoub DO LAB BLOOD ORDERABLES Final Resu lt Performing Organization Address City/[facility]/[place] [address], [place] * (ABNORMAL) [facility] HIE UA WITH CULT RFLX (03/26/2025 1:41 AM EDT) [facility] NON-[facility] HIE UA Color Yellow Yellow [facility] Comment:Microscopic readings are only performed on those samples that meet specific criteria set forth by [facility]. NON-[facility] HIE UA Clarity Turbid(A) Clear [facility] NON-[facility] HIE UA Spec Grav 1.043 1.005 - 1.030 [facility] HIE UA pH 6.0 5.0 - 9.0 [facility] NON-[facility] HIE UA Protein Trace(A) Negative mg/dL [facility] HIE UA Glucose 4+(A) Negative mg/dL [facility] H[facility] UA Ketones 1+(A) Negative mg/dL [facility] H[facility] UA Bili Negative Negative mg/dL [facility] H[facility] UA Blood 3+(A) Negative mg/dL [facility] H[facility] UA Nitrite Negative Negative mg/dL [facility] H[facility] UA Urobilinogen Negative Negative mg/dL [facility] H[facility] UA Leuk Est 25 Matthew/uL Negative CD:[id number] [facility] HIE UA WBC 16-25(A) 0 - 5 CD:[id number] 3 [facility] HIE UA RBC >75(A) 0 - 3 CD:[id number] 3 [facility] H[facility] UA Squam Epithelial >10 CD:[id number] 3 [facility] HIE UA Bacteria 2+(A) Trace /HPF [facility] H[facility] UA MUCOUS 1+(A) Negative CD:[id number] 1 [facility] Lab- Urine 03/26/2025 1 :41 AM EDT us Wilmer Ayoub DO LAB BLOOD ORDERABLES Final Resu lt Performing Organization Address City/State/[facility] Co de Phone Number [address] * [facility] HIE C Urine (03/26/2025 1:41 AM EDT) [facility] U CleanCatch 03/26/2025 1:41 AM EDT Narrative [facility] - 03/28/2025 11:57 AM EDT Microbiology PROCEDURE: Urine Culture [R1] SOURCE: U CleanCatch BODY SITE: COLLECTED DATE/TIME: 03/26/2025 01:41 EDT RECEIVED DATE/TIME: 03/26/2025 04:14 EDT START DATE/TIME: 03/26/2025 04:14 EDT FREE TEXT SOURCE: Wilmer Ayoub DO, DO, Wilmer Simmnos FINAL REPORTS Final Report [] Verified Date/Time: 03/28/2025 11:57 EDT 25,000 cfu/ml Mixed skin contaminants Mixed dianna (multiple species present) Performing Locations R1: This test was performed at: [facility], [address] [place] [address], [phone] , [place], us Wilmer Ayoub DO LAB BLOOD ORDERABLES Final Resu lt [facility] [address] [address], [place] * XR shoulder right 2+ views (03/19/2025 1:03 AM EDT) Anatomical Region Laterality Modality Musculoskeletal, Upper Extremities, Shoulder Rig ht Computed Radiography 03/19/2025 1:12 AM EDT 03/19/2025 1:12 AM EDT Impressions 03/19/2025 1:11 AM EDT No acute findings. If concern for rotator cuff pathology, consider MRI MACRO: None Signed by: Damian Mederos 03/19/2025 1:11 AM Dictation workstation: [id number] Narrative 03/19/2025 1:11 AM EDT Interpreted By: Damian Mederos, STUDY: XR SHOULDER RIGHT 2+ VIEWS; ; 03/19/2025 1:03 am INDICATION: Signs/Symptoms:Pain. COMPARISON: None. ACCESSION NUMBER(S): [id number] ORDERING CLINICIAN: NIRAJ PETERSON FINDINGS: No evidence of acute fracture or malalignment. Some irregularity seen in the rotator cuff insertion which can be due to rotator cuff pathology. Procedure Note Damian Mederos MD - 03/19/2025 Interpreted By: Damian Mederos, STUDY: XR SHOULDER RIGHT 2+ VIEWS; ; 03/19/2025 1:03 am INDICATION: Signs/Symptoms:Pain. COMPARISON: None. ACCESSION NUMBER(S): [id number] ORDERING CLINICIAN: NIARJ PETERSON FINDINGS: No evidence of acute fracture or malalignment. Some irregularity seen in the rotator cuff insertion which can be due to rotator cuff pathology. IMPRESSION: No acute findings. If concern for rotator cuff pathology, consider MRI MACRO: None Signed by: Damian Mederos 03/19/2025 1:11 AM Dictation workstation: [id number] Niraj Peterson TEST MAN-HYDROCHLORIC ACID OPERATOR IMG XR PROCEDURES Final R esult * ECG 12 lead (03/19/2025 12:50 AM EDT) Ventricular Rate 123 BPM MUSE Atrial Rate 123 BPM MUSE WA Interval 96 ms MUSE QRS Duration 86 ms MUSE QT Interval 424 ms MUSE QTC Calculation(Baze tt) 607 ms MUSE P [place] 57 degrees MUSE R [place] 41 degrees MUSE T [place] 68 degrees MUSE QRS Count 20 beats MUSE Q Onset 220 ms MUSE T Offset 432 ms MUSE QTC Fredericia 538 ms MUSE 03/19/2025 12:4 7 AM EDT 04/01/2025 5:14 PM EDT Narrative MUSE - 04/01/2025 5:14 PM EDT Sinus tachycardia with short WA with Premature supraventricular complexes Nonspecific T wave abnormality Abnormal ECG When compared with ECG of 30-DEC-2024 02:14, No significant change was found See ED provider note for full interpretation and clinical correlation Confirmed by Carmelita Dhillon ([id number]) on 04/01/2025 5:14:19 PM Procedure Note Carmelita Dhillon APRN-CNP - 04/01/2025 Sinus tachycardia with short WA with Premature supraventricularcomplexes Nonspecific T wave abnormality Abnormal ECG When compared with ECG of 30-DEC-2024 02:14, No significant change was found See ED provider note for full interpretation and clinical correlation Confirmed by Carmelita Dhillon ([id number]) on 04/01/2025 5:14:19 PM us Niraj Peterson APRN-HYDROCHLORIC ACID OPERATOR ECG ORDERABLES Final Res ult MUSE * CT abdomen pelvis wo IV contrast (02/02/2025 12:17 AM EDT) Anatomical Region Laterality Modality Abdominal, Body Computed Tomogra phy 02/02/2025 12:5 7 AM EDT 02/02/2025 12:57 AM EDT Impressions 02/02/2025 12:56 AM EDT There is a 2-3 mm nonobstructing right renal calculus. Additional findings as described above. MACRO: None Signed by: Adriano Lugo 02/02/2025 12:56 AM Dictation workstation: [id number] Narrative 02/02/2025 12:56 AM EDT Interpreted By: Adriano Lugo, STUDY: CT ABDOMEN PELVIS WO IV CONTRAST; 02/02/2025 12:17 am INDICATION: Signs/Symptoms:right sided flank pain, hx stones. COMPARISON: CT scan of the abdomen pelvis 12/30/2024 ACCESSION NUMBER(S): [id number] ORDERING CLINICIAN: FISH CLANCY TECHNIQUE: Axial noncontrast [...] of the abdomen pelvis 12/30/2024 ACCESSION NUMBER(S): [id number] ORDERING CLINICIAN: FISH CLANCY TECHNIQUE: Axial noncontrast [...] Adriano Lugo 02/02/2025 12:56 AM Dictation workstation: [id number] us Fish Clancy PA-C IMG CT PROCEDURES Final Resu lt * CBC and Auto Differential (02/01/2025 11:24 PM EDT) WBC 5.7 4.4 - 11.3 x10*3/uL LAB HEMATOLOGY METHOD 02/01/2025 11:29 PM EDT [facility] nRBC 0.0 0.0 - 0.0 /100 WBCs LAB HEMATOLOGY METHOD 02/01/2025 11:29 PM EDT [facility] RBC 5.03 4.00 - 5.20 x10*6/uL LAB HEMATOLOGY METHOD 02/01/2025 11:29 PM EDT [facility] Hemoglobin 14.2 12.0 - 16.0 g/dL LAB HEMATOLOGY METHOD 02/01/2025 11:29 PM [facility] Hematocrit 41.8 36.0 - 46.0 % LAB HEMATOLOGY METHOD 02/01/2025 11:29 PM [facility] MCV 83 80 - 100 fL LAB HEMATOLOGY METHOD 02/01/2025 11:29 PM [facility] MCH 28.2 26.0 - 34.0 pg LAB HEMATOLOGY METHOD 02/01/2025 11:29 PM [facility] MCHC 34.0 32.0 - 36.0 g/dL LAB HEMATOLOGY METHOD 02/01/2025 11:29 PM [facility] RDW 13.9 11.5 - 14.5 % LAB HEMATOLOGY METHOD 02/01/2025 11:29 PM [facility] Platelets 181 150 - 450 x10*3/uL LAB HEMATOLOGY METHOD 02/01/2025 11:29 PM [facility] Neutrophils % 53.5 40.0 - 80.0 % LAB HEMATOLOGY METHOD 02/01/2025 11:29 PM [facility] Immature Granulocytes %, Automated 0.2 0.0 - 0.9 % LAB HEMATOLOGY METHOD 02/01/2025 11:29 PM [facility] Comment:Immature Granulocyte Count (IG) includes promyelocytes, myelocytes and metamyelocytes but does not include bands. Percent differential counts (%) should be interpreted in the context of the absolute cell counts (cells/UL). Lymphocytes % 32.8 13.0 - 44.0 % LAB HEMATOLOGY METHOD 02/01/2025 11:29 PM [facility] Monocytes % 9.1 2.0 - 10.0 % LAB HEMATOLOGY METHOD 02/01/2025 11:29 PM [facility] Eosinophils % 3.7 0.0 - 6.0 % LAB HEMATOLOGY METHOD 02/01/2025 11:29 PM [facility] Basophils % 0.7 0.0 - 2.0 % LAB HEMATOLOGY METHOD 02/01/2025 11:29 PM [facility] Neutrophils Absolute 3.05 1.20 - 7.70 x10*3/uL LAB HEMATOLOGY METHOD 02/01/2025 11:29 PM EDT [facility] Comment:Percent differential counts (%) should be interpreted in the context of the absolute cell counts (cells/uL). Immature Granulocytes Absolute, Automated 0.01 0.00 - 0.70 x10*3/uL LAB HEMATOLOGY METHOD 02/01/2025 11:29 PM EDT [facility] Lymphocytes Absolute 1.87 1.20 - 4.80 x10*3/uL LAB HEMATOLOGY METHOD 02/01/2025 11:29 PM EDT [facility] Monocytes Absolute 0.52 0.10 - 1.00 x10*3/uL LAB HEMATOLOGY METHOD 02/01/2025 11:29 PM EDT [facility] Eosinophils Absolute 0.21 0.00 - 0.70 x10*3/uL LAB HEMATOLOGY METHOD 02/01/2025 11:29 PM EDT [facility] Basophils Absolute 0.04 0.00 - 0.10 x10*3/uL LAB HEMATOLOGY METHOD 02/01/2025 11:29 PM EDT [facility] Blood Venous blood specimen / Unknown Venipuncture / Unknown 02/01/2025 11:24 PM EDT 02/01/2025 11:28 PM EDT us The Luxe Nomad PA-C LAB BLOOD ORDERABLES Final R esult [facility] [address] [place] [address] * Magnesium (02/01/2025 11:24 PM EDT) Magnesium 1.98 1.60 - 2.40 mg/dL LAB CHEMISTRY METHOD 02/01/2025 11:55 PM EDT [facility] Blood Venous blood specimen / Unknown Venipuncture / Unknown 02/01/2025 11:24 PM EDT 02/01/2025 11:29 PM EDT Corvil Wire PA-C LAB BLOOD ORDERABLES Final R esult [facility] [address] [place] [address] * Lipase (02/01/2025 11:24 PM EDT) Lipase 22 9 - 82 U/L LAB CHEMISTRY METHOD 02/01/2025 11:55 PM EDT [facility] Blood Venous blood specimen / Unknown Venipuncture / Unknown 02/01/2025 11:24 PM EDT 02/01/2025 11:29 PM EDT [facility] - 02/01/2025 11:55 PM EDT Venipuncture immediately after or during the administration of Metamizole may lead to falsely low results. Testing should be performed immediately prior to Metamizole dosing. us The Luxe Nomad PA-C LAB BLOOD ORDERABLES Final R esult Performing Organization Address [facility] Co de Phone Number [facility] [address] [place] [phone] * Lactate (02/01/2025 11:24 PM EDT) Lactate 1.8 0.4 - 2.0 mmol/L LAB CHEMISTRY METHOD 02/01/2025 11:56 PM EDT [facility] Blood Venous blood specimen / Unknown Venipuncture / Unknown 02/01/2025 11:24 PM EDT 02/01/2025 11:29 PM EDT [facility] - 02/01/2025 11:56 PM EDT Venipuncture immediately after or during the administration of Metamizole may lead to falsely low results. Testing should be performed immediately prior to Metamizole dosing. us The Luxe Nomad PA-C LAB BLOOD ORDERABLES Final R esult Performing Organization Address [facility]/ZIP Co de Phone Number [facility] [address] [place] [address] * (ABNORMAL) Comprehensive metabolic panel (02/01/2025 11:24 PM EDT) [facility] Glucose 378(H) 74 - 99 mg/dL LAB CHEMISTRY METHOD 02/01/2025 11:55 PM [facility] Sodium 139 136 - 145 mmol/L LAB CHEMISTRY METHOD 02/01/2025 11:55 PM [facility] Potassium 3.7 3.5 - 5.3 mmol/L LAB CHEMISTRY METHOD 02/01/2025 11:55 PM [facility] Chloride 101 98 - 107 mmol/L LAB CHEMISTRY METHOD 02/01/2025 11:55 PM [facility] Bicarbonate 29 21 - 32 mmol/L LAB CHEMISTRY METHOD 02/01/2025 11:55 PM [facility] Anion Gap 13 10 - 20 mmol/L LAB CHEMISTRY METHOD 02/01/2025 11:55 PM [facility] Urea Nitrogen 7 6 - 23 mg/dL LAB CHEMISTRY METHOD 02/01/2025 11:55 PM [facility] Creatinine 0.78 0.50 - 1.05 mg/dL LAB CHEMISTRY METHOD 02/01/2025 11:55 PM [facility] eGFR >90 >60 mL/min/1. 73m*2 LAB CHEMISTRY METHOD 02/01/2025 11:55 PM [facility] Comment: Calculations of estimated GFR are performed using the 2020 CKD-EPI Study Refit equation without the race variable for the IDMS-Traceable creatinine methods. https://jasn.asnjournals.org/content//ASN.7645513177 Calcium 9.6 8.6 - 10.3 mg/dL LAB CHEMISTRY METHOD 02/01/2025 11:55 PM [facility] Albumin 4.5 3.4 - 5.0 g/dL LAB CHEMISTRY METHOD 02/01/2025 11:55 PM [facility] Alkaline Phosphatase 72 33 - 110 U/L LAB CHEMISTRY METHOD 02/01/2025 11:55 PM [facility] Total Protein 7.9 6.4 - 8.2 g/dL LAB CHEMISTRY METHOD 02/01/2025 11:55 PM [facility] AST 14 9 - 39 U/L LAB CHEMISTRY METHOD 02/01/2025 11:55 PM EDT [facility] Bilirubin, Total 0.4 0.0 - 1.2 mg/dL LAB CHEMISTRY METHOD 02/01/2025 11:55 PM EDT [facility] ALT 16 7 - 45 U/L LAB CHEMISTRY METHOD 02/01/2025 11:55 PM EDT [facility] Comment:Patients treated wit h Sulfasalazine may generate falsely decreased results for ALT. Blood Venous blood specimen / Unknown Venipuncture / Unknown 02/01/2025 11:24 PM EDT 02/01/2025 11:29 PM EDT us Fish Clancy PA-C LAB BLOOD ORDERABLES Final R esult [facility] [address] [place] [address] * Extra Urine [place]ancock Tube (02/01/2025 11:05 PM EDT) Extra Tube 02/02/2025 9:02 AM EDT [facility] Urine Urine specimen / Unknown 02/01/2025 11:05 PM EDT 02/01/2025 11:17 PM EDT Grey Putnam DO LAB URINE ORDERABLES Final Re sult [facility] [address] [place] [address] * (ABNORMAL) Microscopic Only, Urine (02/01/2025 11:05 PM EDT) WBC, Urine 21-50(A) 1-5, NONE /HPF 02/01/2025 11:27 PM EDT [facility] RBC, Urine >20(A) NONE, 1-2, 3-5 /HPF 02/01/2025 11:27 PM EDT [facility] Squamous Epithelial Cells, Urine 10-25 (FEW) Reference range not established. /HPF 02/01/2025 11:27 PM EDT [facility] Urine Urine specimen / Unknown 02/01/2025 11:05 PM EDT 02/01/2025 11:17 PM EDT us Grey Claudio Indy FERNANDEZ LAB URINE ORDERABLES Final Re sult [facility] [address] [place] [address] * (ABNORMAL) Urinalysis with Reflex Culture and Microscopic (02/01/2025 11:05 PM EDT) Color, Urine Colorless(N ) Light-Yello w, Yellow, Dark-Yellow 02/01/2025 11:27 PM T [facility] Appearance, Urine Turbid(N) Clear 02/01/2025 11:27 PM [facility] Specific [place]er, Urine 1.010 1.005 - 1.035 LAB URINALYSIS - AUTOMATED METHOD 02/01/2025 11:27 PM T [facility] pH, Urine 7.0 5.0, 5.5, 6.0, 6.5, 7.0, 7.5, 8.0 02/01/2025 11:27 PM [facility] Protein, Urine NEGATIVE NEGATIVE, 10 (TRACE), 20 (TRACE) mg/dL 02/01/2025 11:27 PM [facility] Glucose, Urine OVER (4+)(A) Normal mg/dL 02/01/2025 11:27 PM T [facility] Blood, Urine OVER (3+)(A) NEGATIVE mg/dL 02/01/2025 11:27 PM T [facility] Ketones, Urine NEGATIVE NEGATIVE mg/dL 02/01/2025 11:27 PM [facility] Bilirubin, Urine NEGATIVE NEGATIVE mg/dL 02/01/2025 11:27 PM [facility] Urobilinogen, Urine Normal Normal mg/dL 02/01/2025 11:27 PM T [facility] Nitrite, Urine NEGATIVE NEGATIVE 02/01/2025 11:27 PM EDT [facility] Leukocyte Esterase, Urine 500 Matthew/uL(A) NEGATIVE 02/01/2025 11:27 PM EDT [facility] Urine Urine specimen / Unknown 02/01/2025 11:05 PM EDT 02/01/2025 11:17 PM EDT Narrative [facility] - 02/01/2025 11:27 PM EDT OVER is reported when the result is greater than the clinically reportable range. [facility] URINE ORDERABLES Final Re sult Performing Organization Address City/[facility]/ZIP Co de Phone Number [facility] [address] [place] [address] * (ABNORMAL) Urine Culture (02/01/2025 11:05 PM EDT) Urine Culture Growth indicates contamination with Gram positive dianna. Repeat culture if clinically indicated. 02/03/2025 8:25 AM EDT [facility] Urine Culture <=10,000 CFU/mL Streptococcus agalactiae (Group B Streptococcus)(A ) MICROSCAN 02/03/2025 8:25 AM EDT [facility] Comment: Streptococcus agalactiae (Group B Streptococcus, GBS) may be significant in individuals. Recovery from non- individuals likely represents an insignificant finding. Routine GBS screening should be ordered using test G roup B Streptococcus (GBS) Screen, Culture ([id number]). Urine Urine specimen / Unknown 02/01/2025 11:05 PM EDT 02/01/2025 11:27 PM EDT Narrative [facility] - 02/03/2025 8:25 AM EDT Streptococcus agalactiae (Group B Streptococcus) is universally susceptible to beta-lactam antibiotics and vancomycin. Routine susceptibility testing not performed. For penicillin allergic patients, please contact the laboratory within 5 days of collection at to request susceptibility testing. [facility] MICROBIOLOGY - GENERAL OR DERABLES Final Result [facility] [id number] [facility] [address] [place] [address] from Last 3 Months Insurance [employer] Care Teams Nuclear Fuel Processing Technician Relationship Specialty Start Date End Date Skye Jones APRN-CNP [address] [place], [place] [id number] PCP - General 11/28/21
--- OUTSIDE RECORDS SUMMARY | 2025-04-04 21:22 | XMS_ITS | Patient Health Record ---
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00 Substance abuse F19.10 Hypertension I10 GERD (gastroesophageal reflux disease) K 21.9 Surgical History Surgery Date(Month/Year) 3 trigger release right shoulder (bicep and rotator cuff) carpal tunnel bilateral right leg fracture hysterectomy
[2025-04-04 21:41] LABS: Glucose Urine UA >=1000 mg/dL (NEGATIVE)
[2025-04-04 21:51] LABS: Cast Seen? NONE SEEN #/LPF (NONE SEEN); Crystals Seen? None Seen #/HPF (None Seen)
--- NOTE | 2025-04-04 22:14 | PC.NURSE ---
this patient complains of left flank pain along with nausea this patient denies any recent falls, injury or trauma to cause this flnak pain
--- NOTE | 2025-04-04 22:14 | ED.GENADUL1 ---
HPI HPI - General Adult General Chief complaint: Urogenital-Female Stated complaint: LEFT SIDE FLANK PAIN AND VOMITING Time Seen by Provider: 04/04/25 22:10 Source: patient Mode of arrival: walk-in Limitations: no limitations History of Present Illness HPI narrative: patient presents complaining of left CVA kidney stone pain. States started yesterday. Associated with recurrent vomiting. no fever or dysuria. No respiratory symptom. Past history of kidney stones Related Data Home Medications ?Medication ?Instructions ?Recorded ?Confirmed gabapentin 600 mg tablet 600 mg PO Q8H 12/30/22 03/04/25 metoprolol tartrate 25 mg tablet 50 mg PO Q12H 12/30/22 03/04/25 tizanidine 4 mg tablet 4 mg PO Q8H PRN spasms 12/30/22 03/04/25 trazodone 100 mg tablet 200 mg PO BEDTIME 12/30/22 11/14/24 olanzapine 5 mg tablet 5 mg PO BID 01/17/23 03/04/25 duloxetine 60 mg capsule,delayed 60 mg PO DAILY 07/19/23 03/04/25 release (Cymbalta) insulin glargine 100 unit/mL (3 40 unit subcut QPM 07/21/23 03/04/25 mL) subcutaneous pen (Lantus Solostar U-100 Insulin) meclizine 25 mg tablet 25 mg PO TID PRN dizziness 07/21/23 03/04/25 hydroxyzine pamoate 50 mg capsule 50 mg PO TID PRN anxiety 08/13/23 03/04/25 loratadine 10 mg tablet (Allergy 10 mg PO DAILY 03/24/24 03/04/25 Relief (loratadine)) naloxone 4 mg/actuation nasal spray 1 spray intranasal Q3M PRN opioid 03/24/24 08/07/24 overdose cholecalciferol (vitamin D3) 25 25 mcg PO QWEEK 08/07/24 03/04/25 mcg (1,000 unit) tablet colesevelam 625 mg tablet 625 mg PO BID 08/07/24 03/04/25 empagliflozin 25 mg tablet 25 mg PO DAILY 08/07/24 03/04/25 (Jardiance) lidocaine 5 % topical patch 1 patch topical .Q12HRs 08/07/24 11/14/24 oxycodone-acetaminophen 5 mg-325 1 tab PO QPM PRN pain 08/07/24 11/14/24 mg tablet promethazine 25 mg tablet 25 mg PO Q6H PRN nausea and 08/07/24 11/14/24 vomiting rosuvastatin 40 mg tablet 40 mg PO DAILY 08/07/24 03/04/25 tirzepatide 7.5 mg/0.5 mL 7.5 mg subcut QWEEK 08/07/24 03/04/25 subcutaneous pen injector (Mounjaro) blood-glucose sensor (FreeStyle 11/14/24 11/14/24 Myron 3 Sensor device) ondansetron HCl 4 mg tablet mg 11/14/24 pantoprazole 40 mg tablet,delayed 40 mg PO DAILY 11/14/24 03/04/25 release trazodone 300 mg tablet 300 mg PO BEDTIME 11/14/24 03/04/25 aripiprazole 20 mg tablet 20 mg PO DAILY 03/04/25 03/04/25 Allergies Allergy/AdvReac Type Severity Reaction Status Date / Time melon Allergy Severe Anaphylaxis Verified 04/04/25 21:24 fentanyl Allergy Unknown Unknown Verified 04/04/25 21:24 ketorolac (From Toradol) Allergy Unknown Unknown Verified 04/04/25 21:24 meperidine (From Demerol) Allergy Unknown Unknown Verified 04/04/25 21:24 morphine Allergy Unknown Unknown Verified 04/04/25 21:24 nalbuphine (From Nubain) Allergy Unknown Unknown Verified 04/04/25 21:24 Penicillins Allergy Unknown Unknown Verified 04/04/25 21:24 aspirin AdvReac Unknown NOSE BLEEDS Verified 04/04/25 21:24 Opioid HPI Opioid Management Most Recent Opioid Data: Last Pain Scale 9 Today, 22:13 Last ORT Total Score 3 03/28/24, 21:04 Last ORT Risk Category Low Risk 03/28/24, 21:04 Ur Phencyclidine Scrn, (NEGATIVE) Negative 07/21/23, 18:35 Review of Systems ROS Status of ROS 10 or more systems reviewed and unremarkable except as noted in history and below [facility] Medical History (Updated 04/04/25 @ 23:30 by Bienvenido Marshall MD) Syncope ?R55 - Syncope and collapse (ICD-10) Headache ?R51.9 - Headache, unspecified (ICD-10) Obesity ?E66.9 - Obesity, unspecified (ICD-10) HLD (hyperlipidemia) ?E78.5 - Hyperlipidemia, unspecified (ICD-10) Migraine headache ?G43.909 - Migraine, unspecified, not intractable, without status migrainosus (ICD-10) Depression with anxiety ?F41.8 - Other specified anxiety disorders (ICD-10) UTI (urinary tract infection) ?N39.0 - Urinary tract infection, site not specified (ICD-10) Kidney calculi ?N20.0 - Calculus of kidney (ICD-10) GERD (gastroesophageal reflux disease) ?K21.9 - Gastro-esophageal reflux disease without esophagitis (ICD-10) Diabetes ?E11.9 - Type 2 diabetes mellitus without complications (ICD-10) Surgical History (Updated 03/28/24 @ 21:25 by Minerva Merchant) History of cholecystectomy ?Z90.49 - Acquired absence of other specified parts of digestive tract (ICD-10) H/O oophorectomy H/O: hysterectomy ?Z90.710 - Acquired absence of both cervix and uterus (ICD-10) Family History (Updated 03/28/24 @ 21:26 by Minerva Merchant) Mother Family history of hypertension Social History (Updated 03/28/24 @ 21:27 by Minerva Merchant) Within the past year, how often did you have a drink containing alcohol: never Score interpretation: A score less than 3 is consistent with normal alcohol consumption. 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 Highest level of school completed/degree received: some college, no degree Are you now , , , , never or living with a partner: In a typical week, how many times do you talk on the telephone with family, friends, or neighbors: 3 or more times per week How often do you get together with friends or relatives: 3 or more times per week How often do you attend jehovah's witness or restorationist services: 4 or more times per year Little interest or pleasure in doing things: not at all Feeling down, depressed, or hopeless: not at all Feel stressed/tense/nervous/anxious/difficulty sleeping: only a little Do you think of yourself as: straight/heterosexual Gender Identity: female Exam Constitutional Vital Signs, click to edit/add: Last Vital Signs Temp 98.4 F 04/04/25 21:18 Pulse 118 H 04/04/25 21:18 Resp 18 04/04/25 21:18 BP 133/82 04/04/25 21:18 Pulse Ox 98 04/04/25 21:18 O2 Del Method Room Air 04/04/25 21:18 Common normals: no apparent distress, average body habitus, oriented x3, no limitations, healthy appearing, alert and well nourished [facility] Common normals: normocephalic and head/scalp atraumatic Eye Common normals: PERRL, EOMs intact bilaterally and conjunctivae normal Respiratory Common normals: normal respiratory effort, no retractions, no use of accessory muscles and clear to auscultation bilaterally Cardio Common normals: regular rate, regular rhythm, S1 normal heart sound and S2 normal heart sound GI Common normals: Normal to inspection, nondistended, normoactive bowel sounds present, soft to palpation and non-tender Back & Pelvis General back: CVA tenderness CVA tenderness: left Extremity Common normals: normal to inspection and full ROM Neuro Common normals: oriented x3, CN's II-XII intact bilaterally and moves all extremities Psych Appearance: grossly normal Course Vital Signs Vital signs: Vital Signs Temperature 98.4 F 04/04/25 21:18 Pulse Rate 118 H 04/04/25 21:18 Respiratory Rate 18 04/04/25 21:18 Blood Pressure 133/82 04/04/25 21:18 Pulse Oximetry 98 04/04/25 21:18 Oxygen Delivery Method Room Air 04/04/25 21:18 Temperature 98.4 F 04/04/25 21:18 Pulse Rate 118 H 04/04/25 21:18 Respiratory Rate 18 04/04/25 21:18 Blood Pressure 133/82 04/04/25 21:18 Pulse Oximetry 98 04/04/25 21:18 Oxygen Delivery Method Room Air 04/04/25 21:18 Medical Decision Making [facility] Narrative Medical decision making narrative: Patient presents with 2 day history of left CVA pain stating she believes she has a kidney stone. Found to have left CVA tenderness. labs demonstrated hematuria. RBS 361. bicarb 30 with normal anion gap. No findings of DKA. CT with right sided nephrolithiasis. No obstucting stone or hydronephrosis. Patient informed it is unclear why she has the left sided CVA pain. May be muscular. offerred muscle relaxant but she declined it because she has some at home. Advised to follow up with her doctor for recheck Lab Data Labs: Lab Results 04/04/25 04/04/25 Range/Units 21:30 22:38 WBC 5.8 (4.0-11.0) 10^3/uL RBC 4.47 (4.20-5.40) 10^6/uL Hgb 13.0 (12.0-16.0) g/dL Hct 38.4 (36.0-48.0) % MCV 85.9 (81.0-99.0) fL MCH 29.1 (26.7-34.0) pg MCHC 33.9 (29.9-35.2) g/dL RDW 13.5 (11.0-15.0) % Plt Count 195 (150-450) 10^3/uL MPV 8.8 L (9.5-13.5) fL Neut % (Auto) 57.1 (43.0-75.0) % Lymph % (Auto) 30.4 (20.5-60.0) % [place] % (Auto) 7.1 (1.7-12.0) % Eos % (Auto) 3.8 (0.9-7.0) % Baso % (Auto) 1.4 (0.2-2.0) % Neut # (Auto) 3.3 (1.4-6.5) 10^3/uL Lymph # (Auto) 1.8 (1.2-3.8) 10^3/uL [place] # (Auto) 0.4 (0.3-0.8) 10^3/uL Eos # (Auto) 0.2 (0.0-0.7) 10^3/uL Baso # (Auto) 0.1 (0.0-0.1) 10^3/uL Abs Immat Gran (auto) 0.01 (0.00-0.03) 10^3/uL Imm/Tot Granulo (auto) 0.2 (0.0-0.5) % Sodium 137 (136-145) mmol/L Potassium 4.3 (3.5-5.1) mmol/L Chloride 101 (98-107) mmol/L Carbon Dioxide 30.0 (21.0-32.0) mmol/L Anion Gap 10.3 BUN 17.0 (7.0-18.0) mg/dL Creatinine 0.76 (0.55-1.02) mg/dL Est GFR ( Amer) >60 (>=60 mL/min/1.73m^2) Est GFR (Non-Af Amer) >60 (>=60 mL/min/1.73m^2) BUN/Creatinine Ratio 22.4 Glucose 361 H (74-106) mg/dL Lactate 1.3 (0.4-2.0) mmol/L Calcium 9.5 (8.5-10.1) mg/dL Total Bilirubin 0.3 (0.2-1.0) mg/dL AST 15 (15-37) U/L ALT 27 (14-59) U/L Alkaline Phosphatase 80 (46-116) U/L Total Protein 7.7 (6.4-8.2) g/dL Albumin 3.7 (3.4-5.0) g/dL Globulin 4.0 g/dL Albumin/Globulin Ratio 0.9 Urine Color Lt yellow (YELLOW) Urine Clarity Clear (CLEAR) Urine pH 6.0 (5.0-9.0) Ur Specific [place] 1.015 (1.005-1.025) Urine Protein Negative (NEG/TRACE) mg/dL Urine Glucose (UA) >=1000 A (NEGATIVE) mg/dL Urine Ketones Negative (NEGATIVE) mg/dL Urine Occult Blood Large A (NEGATIVE) Urine Nitrite Negative (NEGATIVE) Urine Bilirubin Negative (NEGATIVE) Urine Urobilinogen 0.2 (0.2-1.0) EU/dL Ur Leukocyte Esterase Negative (NEGATIVE) Urine RBC 50-75 A (0-2) #/HPF Urine WBC 0-2 A (NONE SEEN) #/HPF Ur Squamous Epith Cells Few A (NONE/RARE) #/LPF Urine Crystals None seen (None Seen) #/HPF Urine Bacteria Trace A (NONE SEEN) #/HPF Urine Casts None seen (NONE SEEN) #/LPF Urine Mucus None seen (NONE SEEN) Discharge Plan Discharge Chief Complaint: Urogenital-Female Clinical Impression: Acute left flank pain Patient Disposition: Home, Self-Care Prescriptions / Home Meds: No Action olanzapine 5 mg tablet 5 mg PO BID Rx Instructions: HS duloxetine [Cymbalta] 60 mg capsule,delayed release(DR/EC) 60 mg PO DAILY insulin glargine [Lantus Solostar U-100 Insulin] 100 unit/mL (3 mL) insulin pen 40 unit SUBCUT QPM meclizine 25 mg tablet 25 mg PO TID PRN (Reason: dizziness) hydroxyzine pamoate 50 mg capsule 50 mg PO TID PRN (Reason: anxiety) loratadine [Allergy Relief (loratadine)] 10 mg tablet 10 mg PO DAILY naloxone 4 mg/actuation spray,non-aerosol 1 spray INTRANASAL Q3M PRN (Reason: opioid overdose) ondansetron HCl 4 mg tablet pantoprazole 40 mg tablet,delayed release (DR/EC) 40 mg PO DAILY trazodone 300 mg tablet 300 mg PO BEDTIME (DME) FreeStyle Myron 3 Sensor Device MISCELLANEOUS aripiprazole 20 mg tablet 20 mg PO DAILY gabapentin 600 mg tablet 600 mg PO Q8H metoprolol tartrate 25 mg tablet 50 mg PO Q12H tizanidine 4 mg tablet 4 mg PO Q8H PRN (Reason: spasms) trazodone 100 mg tablet 200 mg PO BEDTIME cholecalciferol (vitamin D3) 25 mcg (1,000 unit) tablet 25 mcg PO QWEEK colesevelam 625 mg tablet 625 mg PO BID Jardiance 25 mg tablet 25 mg PO DAILY lidocaine 5 % adhesive patch,medicated 1 patch topical .Q12HRs Patient Comments: 12 on and 12 off oxycodone-acetaminophen 5-325 mg tablet 1 tab PO QPM PRN (Reason: pain) promethazine 25 mg tablet 25 mg PO Q6H PRN (Reason: nausea and vomiting) rosuvastatin 40 mg tablet 40 mg PO DAILY Mounjaro 7.5 mg/0.5 mL pen injector 7.5 mg SUBCUT QWEEK Print Language: Grenadian Instructions: Flank Pain (ED) Additional Instructions: follow up with your doctor this week for recheck Referrals: JIE LEE CINDER CRANE OPERATOR [Primary Care Provider] - 1 week
--- NOTE | 2025-04-04 22:18 | CT_ITS ---
The [address] [address] Patient Name: GISEL PAT MRN: [id number] date: 1975 Sex: F Assigned Patient Location: ER Current Patient Location: ED.MAIN Accession/Order Number: [id number] Exam Date: 04/04/2025 22:26 Report Date: 04/04/2025 23:06 At the request of: HOMERO DE LA ROSA MD Procedure: CT abdomen pelvis wo con CT ABDOMEN AND PELVIS WITHOUT INTRAVENOUS CONTRAST: CLINICAL HISTORY: left flank pain COMPARISON: 03/04/2025 TECHNIQUE: Spiral images were obtained through the abdomen and pelvis without intravenous contrast. This CT exam was performed using one or more following dose reduction techniques: Automated exposure control, adjustment of the mA and/or kV according to patient size, or use of iterative reconstruction technique. FINDINGS: Lung Bases: [Minimal bibasilar atelectasis or scarring.] Organs:Cholecystectomy. Otherwise liver, spleen, adrenals, and pancreas are unremarkable. Right renal calculus 2 mm in size, nonobstructive. No hydronephrosis. No ureterolithiasis.[ GI: Mild retained stool. No bowel obstruction. Appendix not visualized. No CT findings acute appendicitis.[Moderate gastric distention with air-fluid level. Pelvis:[Bladder unremarkable. Hysterectomy. No suspicious adnexal mass.] Peritoneum/Retroperitoneum:No free air or free fluid. Mild scattered plaque involving the nonaneurysmal aorta.[ Abd wall/Bones:No suspicious osseous lesion.[ CT/CT abdomen pelvis wo con IMPRESSION: Right-sided nephrolithiasis. No hydronephrosis or obstructive uropathy. Negative acute pulmonary process or bowel obstruction. Additional findings as above. Impression dictated by: Santy Romero M.D. 04/04/2025 11:06 PM Dictation Location: [place] Electronically authenticated by: [id number] Y Date: 04/04/2025 23:06
[2025-04-04 22:48] LABS: Hematocrit 38.4 % (36.0-48.0); Hemoglobin 13.0 g/dL (12.0-16.0); Immature Granulocytes Abs Auto 0.01 10^3/uL (0.00-0.03); Immature Granulocytes Pct Auto 0.2 % (0.0-0.5); Lymphocytes Absolute Auto 1.8 10^3/uL (1.2-3.8); Mean Corpuscular HGB Conc 33.9 g/dL (29.9-35.2); Mean Corpuscular Hemoglobin 29.1 pg (26.7-34.0); Mean Corpuscular Volume 85.9 fL (81.0-99.0); Platelet Count 195 10^3/uL (150-450); Red Blood Count 4.47 10^6/uL (4.20-5.40); White Blood Count 5.8 10^3/uL (4.0-11.0)
[2025-04-04] MEDS: 0.9 % SODIUM CHLORIDE 1,000 ML 999 ML IV (22:56)
[2025-04-04 23:09] LABS: Alanine Aminotransferase 27 U/L (14-59); Albumin Globulin Ratio 0.9; Albumin Level 3.7 g/dL (3.4-5.0); Alkaline Phosphatase 80 U/L (46-116); Anion Gap 10.3; Aspartate Amino Transferase 15 U/L (15-37); Blood Urea Nitrogen 17.0 mg/dL (7.0-18.0); Calcium 9.5 mg/dL (8.5-10.1); Carbon Dioxide 30.0 mmol/L (21.0-32.0); Chloride 101 mmol/L (98-107); Estimated GFR (African America >60 (>=60 mL/min/1.73m^2); Estimated GFR (Non-African Ame >60 (>=60 mL/min/1.73m^2); Globulin 4.0 g/dL; Glucose 361 mg/dL (74-106); Potassium 4.3 mmol/L (3.5-5.1); Sodium 137 mmol/L (136-145); Total Protein 7.7 g/dL (6.4-8.2)
[2025-04-04 23:11] LABS: Lactate/Lactic Acid 1.3 mmol/L (0.4-2.0)
--- NOTE | 2025-04-04 23:56 | PC.NURSE ---
i gave this patient verbal and written discharge orders and this patient voices yes to understanding these. at time of discharge this patient voices no concerns, needs and shows no signs of distress. this patient refused discharge vitals, patient ready to go
== END 2025-04-04 23:55 | disposition home or self-care (01) ==
PROVIDERS: Emergency Provider Internal Medicine; PCP Nurse Practitioner Family
DX: R10.9 Unspecified abdominal pain (principal); R11.10 Vomiting, unspecified; Z87.442 Personal history of urinary calculi
CPT/HCPCS: 36415; 74176; 80053; 81001; 83605; 85025; 96360; 99285

== ENCOUNTER 2025-06-22 16:58 | Emergency (ER) | payer OTHER, SELFPAY ==
--- OUTSIDE RECORDS SUMMARY | 2025-06-09 17:31 | XMS_ITS | Encounter Summary ---
Author Organization [facility] Address [address] 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 Encounter Details DateTypeDepartmentCare Team (Latest Contact Info)Nxhopyykzsz77/12/2025 5:31 PM EST - 06/09/2025 10:06 PM [facility] Emergency Room [address] [place] [address] [place] [address] Department [place] [address] Pyelonephritis (Primary Dx) Discharge Disposition: Home Social History Tobacco UseTypesPacks/DayYears UsedDateSmoking Tobacco: NeverPassive Smoke Exposure: NeverSmokeless Tobacco: NeverAlcohol UseStandard Drinks/WeekComments Defer0 (1 standard drink = 0.6 oz pure alcohol)PHQ-2AnswerDate RecordedPatient Health Questionnaire-2 Wgrbt88307/21/2024Humiliation, Afraid, Rape, and Kick questionnaireAnswerDate RecordedWithin the last year, have you been afraid of your partner or ex-partner?No05/21/2025Within the last year, have you been humiliated or emotionally abused in other ways by your partner or ex-partner?No 05/21/2025Within the last year, have you been kicked, hit, slapped, or otherwise physically hurt by your partner or ex-partner?No05/21/2025Within the last year, have you been raped or forced to have any kind of sexual activity by your part ner or ex-partner?No05/21/2025UDIT-CAnswerDate RecordedQ1: How often do you have a drink containing alcohol?Never05/21/2025Q2: How many drinks containing alcohol do you have on a typical day when you are drinking?Patient does not drink05/21/2025Q3: How often do you have six or more drinks on one occasion? Never05/21/2025Overall Financial Resource Strain (CARDIA)AnswerDate RecordedHow hard is it for you to pay for the very basics like food, housing, medical care, and heating?Not hard at all05/21/2025Hunger Vital SignAnswerDate RecordedWithin the past 12 months, you worried that your food would run out before you got the money to buymore.Never true05/21/2025Within the past 12 months, the food you bought just didn't last and you didn't have money to get more.Never true 05/21/2025PRAPARE - TransportationAnswerDate RecordedIn the past 12 months, has lack of transportation kept you from medical appointments or from getting medications?No05/21/2025In the past 12 months, has lack of transportation kept you from meetings, work, or from getting things needed for daily living?No 05/21/2025Housing Stability Vital SignAnswerDate RecordedIn the last 12 months, was there a time when you were not able to pay the mortgage or rent on time?No 05/21/2025In the past 12 months, how many times have you moved where you were living?t any time in the past 12 months, were you homeless or living in a penitentiary (including now)?No05/21/2025HC UtilitiesAnswerDate RecordedIn the past 12 months has the [employer], gas, oil, or water [employer] threatened to shut off services in your home?No05/21/2025CommentsNoSex and Gender InformationValueDate RecordedSex Assigned at BirthNot on fileLegal SexFemale 05/24/2022 6:27 AM ESTGender IdentityNot on fileSexual OrientationNot on file documented as of this encounter Last Filed Vital Signs Vital SignReadingTime TakenCommentsBlood Gubznoud507/6006/09/2025 7:29 PM EST Ygmef16717/12/2025 7:29 PM MSVYlljoonpvxx82 ??C (96.8 ??F)06/09/2025 5:29 PM EST Respiratory Xvwu621108/10/2024 7:29 PM ESTOxygen Ijhckdmqpx01%06/09/2025 7:29 PM ESTInhaled Oxygen Concentration--Nootpm952 kg (260 lb 2.3 oz)06/09/2025 5:29 PM LSDVsjyhz488.2 cm (5' 7 )06/09/2025 5:29 PM ESTBody Mass Index40.7406/09/2025 5:29 PM ESTdocumented in this encounter Functional Status * Vital SignsQuestionAnswerDate of KrgycpsyqdAhdjpcWtoqv89437/12/2025 7:29 PM Alcira Martinez RN * S[place]es Fall RiskQuestionAnswerDate of AssessmentAuthorHistory of Falling, Immediate or Within 3 Qcfcgu010 5:29 PM Yefri Spence RN Secondary Jqcvwktad602/12/2025 5:29 PM Yefri Spence, RNAmbulatory Aid0 06/09/2025 5:29 PM Yefri Spence RNIntravenous Therapy/Heparin Lock0 06/09/2025 5:29 PM Yefri Spence RNGait/Aazgychdlmlr924/12/2025 5:29 PM Yefri Spence RNMental Bsbefa534 5:29 PM Yefri Spence RNMorse Fall Risk Vcfuy317 5:29 PM Yefri Spence RN * Abuse ScreenQuestionAnswerDate of AssessmentAuthorHave you had any thoughts of harming anyone else?No06/09/2025 5:29 PM Yefri Spence RNAre there any apparent signs of injuries/behaviors that could be related to abuse/neglect?No 06/09/2025 5:29 PM Yefri Spence RNAre you or have you been threatened or abused physically, emotionally, or sexually by anyone?No06/09/2025 5:29 PM Yefri Spence RNHas anyone ever threatened to hurt your family or your pets?No06/09/2025 5:29 PM Yefri Spence RNDoes anyone try to keep you from having/contacting other friends or doing things outside your home?No 06/09/2025 5:29 PM Yefri Spence RNDo you feel UNSAFE going back to the place where you are living?No06/09/2025 5:29 PM Yefri Spence RNDo you feel anyone has exploited or taken advantage of you financially or of your personal property?No06/09/2025 5:29 PM Yefri Spence RNAbuse Screen Adult06/09/2025 5:29 PM Yefri Spence RN * Ability to Assess Risk ScreenQuestionAnswerDate of AssessmentAuthorRisk Screen - Ability to AssessAble to be afnokfik27/12/2025 5:29 PM Yefri Spence RN * Calculated C-SSRS Risk Score (Lifetime/Recent)AnswerDate of AssessmentAuthorNo Risk Rgxifspsd66/12/2025 5:29 PM Yefri Spence RN * [place] Suicide Severity Rating Scale (Screener/Recent Self-Report)Question AnswerDate of AssessmentAuthor1. Wish to be (Past 1 Month)No06/09/2025 5:29 PM Yefri Spence RN2. Non-Specific Active Suicidal Thoughts (Past 1 Month)No06/09/2025 5:29 PM Yefri Spence RN6. Suicidal Behavior (Lifetime)No06/09/2025 5:29 PM Yefri Spence RN documented as of this encounter Discharge Instructions * Discharge Instructions* Fish Clancy PA-C - 06/09/2025 9:53 PM EST Please follow-up with your primary doctor in the next 2 to 3 days. Please take all medications as directed. Please return to the nearest emergency department if you have any concerns or new or worsening symptoms. * Attachments The following attachments cannot be sent through Care Everywhere. * Urinary Tract Infection, Adult ED (Citizen [place]) documented in this encounter Medications at Time of Discharge MedicationSigDispense QuantityRefillsLast FilledStart DateEnd Date ARIPiprazole (Abilify) 20 mg tablet Take 1 tablet (20 mg) by mouth once daily.12/25/2024 DULoxetine (Cymbalta) [address] capsule Take 1 capsule (60 mg) by mouth 2 times a day. Do not crush or chew. empagliflozin (Jardiance) 25 mg tablet Indications:Type 2 diabetes mellitus with hyperglycemia, without long-term current use of insulin (Multi)Take 1 tablet (25 mg) by mouth once daily. 30 tablet gabapentin (Neurontin) 300 mg capsule Take 2 capsules (600 mg) by mouth 3 times a day. hydrOXYzine pamoate (Vistaril) 50 mg capsule Take 1 capsule (50 mg) by mouth every 6 hours if needed for anxiety. insulin glargine (Lantus U-100 Insulin) 100 unit/mL injection Inject 40 Units under the skin once daily at bedtime. Take as directed per insulin instructions. Atbedtime. insulin lispro 100 unit/mL injection Inject 35 Units under the skin 3 times a day. Take as directed per insulin instructions. Take with meals. loratadine (Claritin) 10 mg tablet Take 1 tablet (10 mg) by mouth once daily. metoprolol tartrate (Lopressor) 50 mg tablet Take 1 tablet by mouth 2 times a day. OLANZapine (ZyPREXA) 5 mg tablet Take 1 tablet (5 mg) by mouth 2 times a day. pantoprazole (ProtoNix) 40 mg EC tablet Take 1 tablet (40 mg) by mouth once daily in the morning. Take before meals. Do not crush, chew, orsplit. promethazine (Phenergan) 25 mg tablet Take 1 tablet (25 mg) by mouth every 6 hours if needed for nausea or vomiting. rosuvastatin (Crestor) 40 mg tablet Take 1 tablet (40 mg) by mouth once daily. tirzepatide (Mounjaro) 7.5 mg/0.5 mL pen injector Inject 7.5 mg under the skin every 7 days. Mondays tiZANidine (Zanaflex) 4 mg capsule Take 1 capsule (4 mg) by mouth 3 times a day. traZODone (Desyrel) 300 mg tablet Take 1 tablet (300 mg) by mouth once daily at bedtime.12/25/2024 cephalexin (Keflex) 500 mg capsule Indications:PyelonephritisTake 1 capsule (500 mg) by mouth 4 times a day for 10 days. 40 capsule oxyCODONE-acetaminophen (Percocet) 5-325 mg tablet Indications:PyelonephritisTake 1 tablet by mouth every 6 hours if needed for severe pain (7 - 10) for up to 2 days. 8 tablet documented as of this encounter ED Notes * Fish Clancy PA-C - 06/09/2025 5:56 PM EST HPI Chief Complaint Patient presents with Flank Pain Right sided flank pain. This is a 50-year-old female with PMH nephrolithiasis presenting for evaluation of atraumatic rightflank pain since today. States feels like a stone. 8 out of 10. Sharp. Radiates to the anterior abdomen and groin. No obvious aggravating or alleviating factors. Associated nausea and hematuria. Denies fevers, chills, chest pain, shortness of breath, diarrhea, obstipation. History provided by: Patient interpreter translator used: No Patient History Medical History[1] Surgical History[2] Family History[3] Social History[4] Physical Exam ED Triage Vitals [06/09/25 1729] Temperature Heart Rate Respirations BP 36 ??C (96.8 ??F) (!) 107 20 (!) 190/110 Pulse Ox Temp Source Heart Rate Source Patient Position 98 % Temporal Monitor Sitting BP Location FiO2 (%) Right arm -- Physical Exam General: Vitals noted. Afebrile. High BMI. Appears uncomfortable. EENT: Sclerae anicteric Cardiac: Tachycardic rate regular rhythm. No murmur Pulmonary: Lungs clear bilaterally with good aeration Abdomen: Soft. Nontender. No rebound. No guarding : Right CVA tenderness. exam deferred Extremities: BOYLE normally Skin: No rash on abdomen Neuro: Alert and oriented ED Course & MDM Diagnoses as of 06/09/25 2350 Pyelonephritis No data recorded Medical Decision Making DDx: Nephrolithiasis, ureterolithiasis, hydroureteronephrosis, calyceal rupture, perinephric abscess, pyelonephritis Patient is hypertensive. Tachycardic. Appears uncomfortable. Soft nontender abdomen. Right-sided CVA tenderness noted. Her laboratory evaluation reveals no leukocytosis, stable H&H, glucose 226, potassium 3.2, lactic 2.3, urinalysis 250 leukocytes esterase, negative nitrates, greater than 50 whites, greater than 50 reds, 1+ bacteria. Patient received oral potassium 40 mill equivalents, oral Ke flex 500 mg, IV Norflex 60 mg, IV LR 1 L, IV Dilaudid 0.5 mg, IV Zofran 4 mg. On reassessment her pain is controlled. CT scan showed nonobstructing right-sided nephrolithiasis but was otherwise unremarkable. Plan to treat patient for UTI with Keflex. Patient has numerous allergies. OARRS reviewed. Will give a small prescription for Percocet. Instructed to return to the nearest ED if any concerns or new or worsening symptoms. Patient verbalized understanding and agreement with plan. Discharged in stable condition. This visit was staffed with the attending physician Dr. Judd. Disclaimer: This note was dictated using speech recognition software. An attempt at proofreading was made to minimize errors. Minor errors in solution professional may be present. Amount and/or Complexity of Data Reviewed Labs: ordered. Radiology: ordered. Shared BEA Attestation: I personally saw the patient and made/approved the management plan and take responsibility for the patient management. History: Patient presenting with right flank pain. Exam: Mildly tachycardic but regular rhythm cardiac exam with clear breath sounds bilaterally. Abdomen is soft and nontender. Mild right sided CVA tenderness. Neurological exam is grossly intact. No palpable cords. MDM: Differential Diagnosis: Renal colic, pyelonephritis, colitis Labs Reviewed COMPREHENSIVE METABOLIC PANEL - Abnormal Result Value Glucose 226 (*) Sodium 141 Potassium 3.2 (*) Chloride 104 Bicarbonate 26 Anion Gap 14 Urea Nitrogen 6 Creatinine 0.69 eGFR >90 Calcium 9.4 Albumin 4.5 Alkaline Phosphatase 77 Total Protein 7.5 AST 19 Bilirubin, Total 0.4 ALT 21 LACTATE - Abnormal Lactate 2.3 (*) Narrative: Venipuncture immediately after or during the administration of Metamizole may lead to falsely low results. Testing should be performed immediately prior to Metamizole dosing. MAGNESIUM - Normal Magnesium 1.98 LIPASE - Normal Lipase 14 Narrative: Venipuncture immediately after or during the administration of Metamizole may lead to falsely low results. Testing should be performed immediately prior to Metamizole dosing. CBC WITH AUTO DIFFERENTIAL WBC 5.3 nRBC 0.0 RBC 4.62 Hemoglobin 13.6 Hematocrit 40.7 MCV 88 MCH 29.4 MCHC 33.4 RDW 12.9 Platelets 188 Neutrophils % 57.7 Immature Granulocytes %, Automated 0.2 Lymphocytes % 32.1 Monocytes % 5.5 Eosinophils % 3.6 Basophils % 0.9 Neutrophils Absolute 3.07 Immature Granulocytes Absolute, Automated 0.01 Lymphocytes Absolute 1.71 Monocytes Absolute 0.29 Eosinophils Absolute 0.19 Basophils Absolute 0.05 URINALYSIS WITH REFLEX CULTURE Narrative: The following orders were created for panel order Urinalysis with Reflex Culture. Procedure Abnormality Status --------- ------ Urinalysis with Reflex C...[[id number]] Extra Urine Hancock Tube[[id number]] Please view results for these tests on the individual orders. URINALYSIS WITH REFLEX CULTURE EXTRA URINE HANCOCK TUBE LACTATE CT abdomen pelvis wo IV contrast Final Result 1. Nonobstructing right-sided nephrolithiasis. MACRO: None Signed by: Raul Warren 06/09/2025 6:21 PM Dictation workstation: [id number] Saman Judd MD Procedure Procedures [1] Past Medical History: Diagnosis Date Diabetes mellitus (Multi) GERD (gastroesophageal reflux disease) [2] Past Surgical History: Procedure Laterality Date CT ABDOMEN PELVIS ANGIOGRAM W AND/OR WO IV CONTRAST 11/09/2019 CT ABDOMEN PELVIS ANGIOGRAM W AND/OR WO IV CONTRAST 11/09/2019 [facility] [3] No family history on file. [4] Social History Tobacco Use Smoking status: Never Passive exposure: Never Smokeless tobacco: Never Vaping Use Vaping status: Never Used Substance Use Topics Alcohol use: Defer Drug use: Never Fish Clancy PA-C 06/09/25 4148 Cosigned by Saman Foreman MD at 06/10/2025 11:23 AM EST Associated attestation - Saman Judd MD - 06/10/2025 11:23 AM EST Please see my attestation within BEA's note. Labs Reviewed COMPREHENSIVE METABOLIC PANEL - Abnormal Result Value Glucose 226 (*) Sodium 141 Potassium 3.2 (*) Chloride 104 Bicarbonate 26 Anion Gap 14 Urea Nitrogen 6 Creatinine 0.69 eGFR >90 Calcium 9.4 Albumin 4.5 Alkaline Phosphatase 77 Total Protein 7.5 AST 19 Bilirubin, Total 0.4 ALT 21 LACTATE - Abnormal Lactate 2.3 (*) Narrative: Venipuncture immediately after or during the administration of Metamizole may lead to falsely low results. Testing should be performed immediately prior to Metamizole dosing. URINALYSIS WITH REFLEX CULTURE - Abnormal Color, Urine Light-[place] (*) Appearance, Urine Turbid (*) Specific [place], Urine 1.010 pH, Urine 6.5 Protein, Urine NEGATIVE Glucose, Urine OVER (4+) (*) Blood, Urine OVER (3+) (*) Ketones, Urine NEGATIVE Bilirubin, Urine NEGATIVE Urobilinogen, Urine Normal Nitrite, Urine NEGATIVE Leukocyte Esterase, Urine 250 Matthew/uL (*) Narrative: OVER is reported when the result is greater than the clinically reportable range. MICROSCOPIC ONLY, URINE - Abnormal WBC, Urine >50 (*) RBC, Urine >20 (*) Squamous Epithelial Cells, Urine 10-25 (FEW) Bacteria, Urine 1+ (*) POCT GLUCOSE - Abnormal POCT Glucose 59 (*) MAGNESIUM - Normal Magnesium 1.98 LIPASE - Normal Lipase 14 Narrative: Venipuncture immediately after or during the administration of Metamizole may lead to falsely low results. Testing should be performed immediately prior to Metamizole dosing. LACTATE - Normal Lactate 0.9 Narrative: Venipuncture immediately after or during the administration of Metamizole may lead to falsely low results. Testing should be performed immediately prior to Metamizole dosing. URINE CULTURE CBC WITH AUTO DIFFERENTIAL WBC 5.3 nRBC 0.0 RBC 4.62 Hemoglobin 13.6 Hematocrit 40.7 MCV 88 MCH 29.4 MCHC 33.4 RDW 12.9 Platelets 188 Neutrophils % 57.7 Immature Granulocytes %, Automated 0.2 Lymphocytes % 32.1 Monocytes % 5.5 Eosinophils % 3.6 Basophils % 0.9 Neutrophils Absolute 3.07 Immature Granulocytes Absolute, Automated 0.01 Lymphocytes Absolute 1.71 Monocytes Absolute 0.29 Eosinophils Absolute 0.19 Basophils Absolute 0.05 URINALYSIS WITH REFLEX CULTURE Narrative: The following orders were created for panel order Urinalysis with Reflex Culture. Procedure Abnormality Status --------- ------ Urinalysis with Reflex C...[[id number]] Abnormal Final result Extra Urine Hancock Tube[[id number]] Please view results for these tests on the individual orders. EXTRA URINE HANCOCK TUBE CT abdomen pelvis wo IV contrast Final Result 1. Nonobstructing right-sided nephrolithiasis. MACRO: None Signed by: Raul Warren 06/09/2025 6:21 PM Dictation workstation: [id number] documented in this encounter Plan of Treatment NameTypePriorityAssociated DiagnosesDate/TimeUrinalysis with Reflex CultureLab STAT108/10/2024 9:10 PM ESTNameTypePriorityAssociated DiagnosesOrder Schedule Urinalysis with Reflex CultureLabSTATSTAT (Lab) for 1 Occurrences starting 06/09/2025 until 06/09/2025Extra Urine Hancock TubeLabTimedOnce for 1 Occurrences starting 06/09/2025 until 06/09/2025documented as of this encounter Goals GoalPatient Goal TypeAssociated ProblemsRecent ProgressPatient-Stated?Author MyChart Post Discharge Patient Safety Manager Goal Template Care PlanMyChart Post Discharge Patient Safety Manager Problem TemplateNoMychart, Genericdocumented as of this encounter Procedures Procedure NamePriorityDate/TimeAssociated DiagnosisCommentsURINALYSIS MICROSCOPIC PVKUKEXE10/12/2025 9:10 PM EST URINALYSIS WITH REFLEX MICROSCOPIC AND IMGIQRECFOL91/12/2025 9:10 PM EST URINE RDEPTTCZJRK85/12/2025 9:10 PM EST SFENDDOPxgyp43/12/2025 9:05 PM EST POCT DKVNBBCYlawuvf14/12/2025 8:46 PM EST CBC WITH AUTO ALCLXNLHDHJPQQJB01/12/2025 6:20 PM EST LYKHWXSQJAPNU95/12/2025 6:20 PM EST QNQIKSYXNA53/12/2025 6:20 PM EST NWBPLLGFKLQ13/12/2025 6:20 PM EST COMPREHENSIVE METABOLIC PYNLIHDEH89/12/2025 6:[address] ABDOMEN PELVIS WO IV GEAWEXYYSTMX38/12/2025 6:01 PM EST documented in this encounter Results * Urine Culture (06/09/2025 9:10 PM EST)ComponentValueRef RangeTest Method Analysis TimePerformed AtPathologist SignatureUrine CultureClinically insignificant growth based on current clinical standards.06/11/2025 7:54 AM ESTADVANCED SURGICAL [facility] LABSpecimen (Source)Anatomical Location / LateralityCollection Method / VolumeCollection TimeReceived TimeUrineUrine specimen / Moogron4406/09/2025 9:10 PM EST06/09/2025 9:35 PM EST Narrative Authorizing ProviderResult TypeResult StatusFish HERNDON MICROBIOLOGY - GENERAL ORDERABLESFinal ResultPerforming OrganizationAddressCity/State/ZIP CodePhone Number [facility] [address] [address] * (ABNORMAL) Microscopic Only, Urine (06/09/2025 9:10 PM EST)ComponentValueRef RangeTest MethodAnalysis TimePerformed AtPathologist SignatureWBC, Urine>50(A) 1-5, NONE /HPF06/09/2025 9:34 PM [facility] LABRBC, Urine>20(A) NONE, 1-2, 3-5 /HPF06/09/2025 9:34 PM [facility] LABSquamous Epithelial Cells, Ymewa00-40 (FEW)Reference range not established. /HPF 06/09/2025 9:34 PM [facility] LABBacteria, Urine1+(A)NONE SEEN /HPF06/09/2025 9:34 PM [facility] LABSpecimen (Source)Anatomical Location / LateralityCollection Method / VolumeCollection TimeReceived Time UrineUrine specimen / Yfsucnw7406/09/2025 9:10 PM EST06/09/2025 9:24 PM EST Narrative Authorizing ProviderResult TypeResult StatusFish HERNDON URINE ORDERABLESFinal ResultPerforming OrganizationAddressCity/State/ZIP CodePhone Number [facility] [address] [place] [address] * (ABNORMAL) Urinalysis with Reflex Culture (06/09/2025 9:10 PM EST)Component ValueRef RangeTest MethodAnalysis TimePerformed AtPathologist SignatureColor, UrineLight-[place](N)Light-Yellow, Yellow, Dark-Mbwhca1306/09/2025 9:35 PM [facility] LABAppearance, UrineTurbid(N)Clear06/09/2025 9:35 PM [facility] LABSpecific [place], Urine1.0101.005 - 1.035 LAB URINALYSIS - AUTOMATED METHOD 06/09/2025 9:35 PM [facility] LABpH, Urine6.55.0, 5.5, 6.0, 6.5, 7.0, 7.5, 8. 9:35 PM [facility] LABProtein, Urine NEGATIVENEGATIVE, 10 (TRACE), 20 (TRACE) mg/dL06/09/2025 9:35 PM [facility] LABGlucose, UrineOVER (4+)(A)Normal mg/dL06/09/2025 9:35 PM [facility] LABBlood, UrineOVER (3+)(A)NEGATIVE mg/dL06/09/2025 9:35 PM [facility] LABKetones, UrineNEGATIVENEGATIVE mg/dL06/09/2025 9:35 PM [facility] LABBilirubin, UrineNEGATIVENEGATIVE mg/dL 06/09/2025 9:35 PM [facility] LABUrobilinogen, UrineNormalNormal mg/dL06/09/2025 9:35 PM [facility] LABNitrite, UrineNEGATIVE JLJBZIND22/12/2025 9:35 PM [facility] LABLeukocyte Esterase, Urine 250 Matthew/uL(A)BXGOLCKR69/12/2025 9:35 PM [facility] LABSpecimen (Source)Anatomical Location / LateralityCollection Method / VolumeCollection TimeReceived TimeUrineUrine specimen / Sbtavtb2406/09/2025 9:10 PM EST06/09/2025 9:24 PM EST Narrative [facility] - 06/09/2025 9:35 PM EST OVER is reported when the result is greater than the clinically reportable range. Authorizing ProviderResult TypeResult StatusBrandon R Wire PA-CLAB URINE ORDERABLESFinal ResultPerforming OrganizationAddressCity/State/ZIP CodePhone Number [facility] [address] [place] [address] * Lactate (06/09/2025 9:05 PM EST)ComponentValueRef RangeTest MethodAnalysis TimePerformed AtPathologist SignatureLactate0.90.4 - 2.0 mmol/L LAB CHEMISTRY METHOD 06/09/2025 9:33 PM [facility] LABSpecimen (Source)Anatomical Location / LateralityCollection Method / VolumeCollection TimeReceived TimeBlood Venous blood specimen / UnknownVenipuncture / Wamqojq6706/09/2025 9:05 PM EST 06/09/2025 9:33 PM EST Narrative [facility] - 06/09/2025 9:33 PM EST Venipuncture immediately after or during the administration of Metamizole may lead to falsely low results. Testing should be performed immediately prior to Metamizole dosing. Authorizing ProviderResult TypeResult StatusBrandon R Wire PA-CLAB BLOOD ORDERABLESFinal ResultPerforming OrganizationAddressCity/State/ZIP CodePhone Number [facility] [address] [place] [phone] * (ABNORMAL) POCT GLUCOSE (06/09/2025 8:46 PM EST)ComponentValueRef RangeTest MethodAnalysis TimePerformed AtPathologist SignaturePOCT Bndwbis15(L)74 - 99 mg/dL06/09/2025 8:48 PM [facility] LABSpecimen (Source) Anatomical Location / LateralityCollection Method / VolumeCollection Time Received TimeBloodCapillary blood specimen / Idgwohz1006/09/2025 8:46 PM EST 06/09/2025 8:48 PM EST Narrative Authorizing ProviderResult TypeResult BRYANNA Segovia POINT OF CARE TEST DOCKED DEVICE UNSOLICITED RESULTSFinal ResultPerforming Organization AddressCity/State/ZIP CodePhone Number [facility] [address] [place] [phone] * (ABNORMAL) Lactate (06/09/2025 6:20 PM EST)ComponentValueRef RangeTest Method Analysis TimePerformed AtPathologist SignatureLactate2.3(H)0.4 - 2.0 mmol/L LAB CHEMISTRY METHOD 06/09/2025 6:47 PM [facility] LABSpecimen (Source)Anatomical Location / LateralityCollection Method / VolumeCollection TimeReceived TimeBlood Venous blood specimen / UnknownVenipuncture / Weginwm7706/09/2025 6:20 PM EST 06/09/2025 6:26 PM EST Narrative [facility] - 06/09/2025 6:47 PM EST Venipuncture immediately after or during the administration of Metamizole may lead to falsely low results. Testing should be performed immediately prior to Metamizole dosing. Authorizing ProviderResult TypeResult StatusFish R Wire PA-CLAB BLOOD ORDERABLESFinal ResultPerforming OrganizationAddressCity/State/ZIP CodePhone Number [facility] [address] [place] [phone] * Lipase (06/09/2025 6:20 PM EST)ComponentValueRef RangeTest MethodAnalysis Time Performed AtPathologist SsxosoqwwXffduy264 - 82 U/L LAB CHEMISTRY METHOD 06/09/2025 6:47 PM [facility] LABSpecimen (Source)Anatomical Location / LateralityCollection Method / VolumeCollection TimeReceived TimeBlood Venous blood specimen / UnknownVenipuncture / Zbtfhla7006/09/2025 6:20 PM EST 06/09/2025 6:26 PM EST Narrative [facility] - 06/09/2025 6:47 PM EST Venipuncture immediately after or during the administration of Metamizole may lead to falsely low results. Testing should be performed immediately prior to Metamizole dosing. Authorizing ProviderResult TypeResult StatusBrand R Wire PA-CLAB BLOOD ORDERABLESFinal ResultPerforming OrganizationAddressCity/State/ZIP CodePhone Number [facility] [address] [place] [address] * Magnesium (06/09/2025 6:20 PM EST)ComponentValueRef RangeTest MethodAnalysis TimePerformed AtPathologist SignatureMagnesium1.981.60 - 2.40 mg/dL LAB CHEMISTRY METHOD 06/09/2025 6:47 PM [facility] LABSpecimen (Source)Anatomical Location / LateralityCollection Method / VolumeCollection TimeReceived TimeBlood Venous blood specimen / UnknownVenipuncture / Pjsyjdl8906/09/2025 6:20 PM EST 06/09/2025 6:26 PM EST Narrative Authorizing ProviderResult TypeResult StatusBrandon R Wire PA-CLAB BLOOD ORDERABLESFinal ResultPerforming OrganizationAddressCity/State/ZIP CodePhone Number [facility] [address] [place] [address] * (ABNORMAL) Comprehensive metabolic panel (06/09/2025 6:20 PM EST)Component ValueRef RangeTest MethodAnalysis TimePerformed AtPathologist SignatureGlucose 226(H)74 - 99 mg/dL LAB CHEMISTRY METHOD 06/09/2025 6:47 PM [facility] OUGPcpnpr243628 - 145 mmol/L LAB CHEMISTRY METHOD 06/09/2025 6:47 PM [facility] LABPotassium3.2(L)3.5 - 5.3 mmol/L LAB CHEMISTRY METHOD 06/09/2025 6:47 PM [facility] GIMLymttvss85331 - 107 mmol/L LAB CHEMISTRY METHOD 06/09/2025 6:47 PM [facility] APRWghitqmjrcs8727 - 32 mmol/L LAB CHEMISTRY METHOD 06/09/2025 6:47 PM [facility] LABComment:Bicarbonate results may be falsely elevated when Lactate Dehydrogenase (LDH) concentrations exceed 2,000 U/L due to a temporary reagent manufacturing issue. If significantly elevated LDH levels are suspected, interpret bicarbonate results with caution, correlate with the patient???s clinical status, and consider confirming CO2 values using a blood gas analyzer.Anion Qdm6441 - 20 mmol/L LAB CHEMISTRY METHOD 06/09/2025 6:47 PM [facility] LABUrea Qlvykqec41 - 23 mg/dL LAB CHEMISTRY METHOD 06/09/2025 6:47 PM [facility] LABCreatinine0.690.50 - 1.05 mg/dL LAB CHEMISTRY METHOD 06/09/2025 6:47 PM [facility] LABeGFR>90>60 mL/min/1.73m*2 LAB CHEMISTRY METHOD 06/09/2025 6:47 PM [facility] LABComment: Calculations of estimated GFR are performed using the 2020 CKD-EPI Study Refit equation without therace variable for the IDMS-Traceable creatinine methods. https://jasn.asnjournals.org/content//ASN.9330537277 Calcium9.48.6 - 10.3 mg/dL LAB CHEMISTRY METHOD 06/09/2025 6:47 PM [facility] LABAlbumin4.53.4 - 5.0 g/dL LAB CHEMISTRY METHOD 06/09/2025 6:47 PM [facility] LABAlkaline Wvtdkjzrzon0543 - 110 U/L LAB CHEMISTRY METHOD 06/09/2025 6:47 PM [facility] LABTotal Protein7.56.4 - 8.2 g/dL LAB CHEMISTRY METHOD 06/09/2025 6:47 PM [facility] JQFWRX610 - 39 U/L LAB CHEMISTRY METHOD 06/09/2025 6:47 PM [facility] LABBilirubin, Total0.40.0 - 1.2 mg/dL LAB CHEMISTRY METHOD 06/09/2025 6:47 PM [facility] MWYPSV573 - 45 U/L LAB CHEMISTRY METHOD 06/09/2025 6:47 PM [facility] LABComment:Patients treated with Sulfasalazine may generate falsely decreased results for ALT.Specimen (Source) Anatomical Location / LateralityCollection Method / VolumeCollection Time Received TimeBloodVenous blood specimen / UnknownVenipuncture / Unknown 06/09/2025 6:20 PM EST06/09/2025 6:26 PM EST Narrative Authorizing ProviderResult TypeResult StatusBrandon R Wire PA-CLAB BLOOD ORDERABLESFinal ResultPerforming OrganizationAddressCity/State/ZIP CodePhone Number [facility] [address] [place] [address] * CBC and Auto Differential (06/09/2025 6:20 PM EST)ComponentValueRef RangeTest MethodAnalysis TimePerformed AtPathologist SignatureWBC5.34.4 - 11.3 x10*3/uL LAB HEMATOLOGY METHOD 06/09/2025 6:30 PM [facility] LABnRBC0.00.0 - 0.0 /100 WBCs LAB HEMATOLOGY METHOD 06/09/2025 6:30 PM [facility] LABRBC4.624.00 - 5.20 x10*6/uL LAB HEMATOLOGY METHOD 06/09/2025 6:30 PM [facility] NEDThpoyerkcu21.612.0 - 16.0 g/dL LAB HEMATOLOGY METHOD 06/09/2025 6:30 PM [facility] VTTOxquidjtkd49.736.0 - 46.0 % LAB HEMATOLOGY METHOD 06/09/2025 6:30 PM [facility] ARBSDJ0342 - 100 fL LAB HEMATOLOGY METHOD 06/09/2025 6:30 PM [facility] VRKYVL21.426.0 - 34.0 pg LAB HEMATOLOGY METHOD 06/09/2025 6:30 PM [facility] WXZWJNQ26.432.0 - 36.0 g/dL LAB HEMATOLOGY METHOD 06/09/2025 6:30 PM [facility] JENSXK41.911.5 - 14.5 % LAB HEMATOLOGY METHOD 06/09/2025 6:30 PM [facility] IMOIxlxlcvsa087088 - 450 x10*3/uL LAB HEMATOLOGY METHOD 06/09/2025 6:30 PM [facility] LABNeutrophils %57.740.0 - 80.0 % LAB HEMATOLOGY METHOD 06/09/2025 6:30 PM [facility] LABImmature Granulocytes %, Automated0.20.0 - 0.9 % LAB HEMATOLOGY METHOD 06/09/2025 6:30 PM [facility] LABComment:Immature Granulocyte Count (IG) includes promyelocytes, myelocytes and metamyelocytes but does not i nclude bands. Percent differential counts (%) should be interpreted in the context of the absolute cell counts (cells/UL).Lymphocytes %32.113.0 - 44.0 % LAB HEMATOLOGY METHOD 06/09/2025 6:30 PM [facility] LABMonocytes %5.52.0 - 10.0 % LAB HEMATOLOGY METHOD 06/09/2025 6:30 PM [facility] LABEosinophils %3.60.0 - 6.0 % LAB HEMATOLOGY METHOD 06/09/2025 6:30 PM [facility] LABBasophils %0.90.0 - 2.0 % LAB HEMATOLOGY METHOD 06/09/2025 6:30 PM [facility] LABNeutrophils Absolute3.071.20 - 7.70 x10*3/uL LAB HEMATOLOGY METHOD 06/09/2025 6:30 PM [facility] LABComment:Percent differential counts (%) should be interpreted in the context of the absolute cell counts (ce lls/uL).Immature Granulocytes Absolute, Automated0.010.00 - 0.70 x10*3/uL LAB HEMATOLOGY METHOD 06/09/2025 6:30 PM [facility] LABLymphocytes Absolute1.711.20 - 4.80 x10*3/uL LAB HEMATOLOGY METHOD 06/09/2025 6:30 PM [facility] LABMonocytes Absolute0.290.10 - 1.00 x10*3/uL LAB HEMATOLOGY METHOD 06/09/2025 6:30 PM [facility] LABEosinophils Absolute0.190.00 - 0.70 x10*3/uL LAB HEMATOLOGY METHOD 06/09/2025 6:30 PM [facility] LABBasophils Absolute0.050.00 - 0.10 x10*3/uL LAB HEMATOLOGY METHOD 06/09/2025 6:30 PM [facility] LABSpecimen (Source)Anatomical Location / LateralityCollection Method / VolumeCollection TimeReceived TimeBlood Venous blood specimen / UnknownVenipuncture / Pdhkbql9006/09/2025 6:20 PM EST 06/09/2025 6:26 PM EST Narrative Authorizing ProviderResult TypeResult StatusBrandon R Wire PA-CLAB BLOOD ORDERABLESFinal ResultPerforming OrganizationAddressCity/State/ZIP CodePhone Number [facility] [address] [place] [address] * CT abdomen pelvis wo IV contrast (06/09/2025 6:01 PM EST)Anatomical Region LateralityModalityAbdominal, BodyComputed TomographySpecimen (Source) Anatomical Location / LateralityCollection Method / VolumeCollection Time Received Time06/09/2025 6:22 PM EST06/09/2025 6:22 PM EST Impressions 06/09/2025 6:21 PM EST 1. Nonobstructing right-sided nephrolithiasis. ?? MACRO: None ?? Signed by: Raul Warren 06/09/2025 6:21 PM Dictation workstation: ?? [id number] Narrative 06/09/2025 6:21 PM EST Interpreted By: Raul Warren, STUDY: CT ABDOMEN PELVIS WO IV CONTRAST; ??06/09/2025 6:01 pm ?? INDICATION: Signs/Symptoms:right flank pain. ? COMPARISON: None ?? ACCESSION NUMBER(S): [id number] ?? ORDERING CLINICIAN: FISH CLANCY ?? TECHNIQUE: CT of the abdomen and pelvis was performed. Contiguous axial images were obtained at 3 mm slice thickness through the abdomen and pelvis. Coronal and sagittal reconstructions at 3 mm slice thickness were performed. ??No intravenous or oral contrast agents were administered. ?? FINDINGS: Please note that the evaluation of vessels, lymph nodes and organs is limited without intravenous contrast. ?? LOWER CHEST: The visualized lung bases demonstrate subsegmental bibasilar atelectasis.. The heart is normal in size without evidence of pericardial effusion. No pleural effusion is present. Visualized distal esophagus appears normal. ?? ABDOMEN: ?? LIVER: The liver is normal in size without evidence of focal liver lesions. ?? BILE DUCTS: The intrahepatic and extrahepatic ducts are not dilated. ?? GALLBLADDER: Patient is status post cholecystectomy. ?? PANCREAS: The pancreas appears unremarkable without evidence of ductal dilatation or masses. ?? SPLEEN: The spleen is normal in size. ?? ADRENAL GLANDS: Bilateral adrenal glands appear normal. ?? KIDNEYS AND URETERS: There is right-sided punctate nephrolithiasis measuring up to 4 mm. This is in the right upper pole. The left kidney is within normal limits. There is no hydronephrosis. No ureterolithiasis. ?? PELVIS: ?? BLADDER: The urinary bladder is physiologically distended. ?? REPRODUCTIVE ORGANS: The uterus is surgically absent. ?? BOWEL: The stomach is unremarkable. ??The small and large bowel are normal in caliber and demonstrate no wall thickening. ??The appendix is not definitely visualized. There is however no pericecal stranding or fluid. ?? VESSELS: Vascular calcification, particularly in the gonadal veins. ?? PERITONEUM/RETROPERITONEUM/LYMPH NODES: There is no free or loculated fluid collection, no free intraperitoneal air. The retroperitoneum appears normal. ??No enlarged mesenteric lymph nodes. ?? ABDOMINAL WALL: The abdominal wall soft tissues appear normal. ?? BONES: No suspicious osseous lesions are identified. 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 ?? Procedure Note Raul Warren MD - 06/09/2025 Interpreted By: Raul Warren, STUDY: CT ABDOMEN PELVIS WO IV CONTRAST; 06/09/2025 6:01 pm INDICATION: Signs/Symptoms:right flank pain. COMPARISON: None ACCESSION NUMBER(S): [id number] ORDERING CLINICIAN: FISH CLANCY TECHNIQUE: CT of the abdomen and pelvis was performed. Contiguous axial images were obtained at 3 mm slice thickness through the abdomen and pelvis. Coronal and sagittal reconstructions at 3 mm slice thickness were performed. No intravenous or oral contrast agents were administered. FINDINGS: Please note that the evaluation of vessels, lymph nodes and organs is limited without intravenous contrast. LOWER CHEST: The visualized lung bases demonstrate subsegmental bibasilar atelectasis.. The heart is normal in size without evidence of pericardial effusion. No pleural effusion is present. Visualized distal esophagus appears normal. ABDOMEN: LIVER: The liver is normal in size without evidence of focal liver lesions. BILE DUCTS: The intrahepatic and extrahepatic ducts are not dilated. GALLBLADDER: Patient is status post cholecystectomy. PANCREAS: The pancreas appears unremarkable without evidence of ductal dilatation or masses. SPLEEN: The spleen is normal in size. ADRENAL GLANDS: Bilateral adrenal glands appear normal. KIDNEYS AND URETERS: There is right-sided punctate nephrolithiasis measuring up to 4 mm. This is in the right upper pole. The left kidney is within normal limits. There is no hydronephrosis. No ureterolithiasis. PELVIS: BLADDER: The urinary bladder is physiologically distended. REPRODUCTIVE ORGANS: The uterus is surgically absent. BOWEL: The stomach is unremarkable. The small and large bowel are normal in caliber and demonstrate no wall thickening. The appendix is not definitely visualized. There is however no pericecal stranding or fluid. VESSELS: Vascular calcification, particularly in the gonadal veins. PERITONEUM/RETROPERITONEUM/LYMPH NODES: There is no free or loculated fluid collection, no free intraperitoneal air. The retroperitoneum appears normal. No enlarged mesenteric lymph nodes. ABDOMINAL WALL: The abdominal wall soft tissues appear normal. BONES: No suspicious osseous lesions are identified. 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 IMPRESSION: 1. Nonobstructing right-sided nephrolithiasis. MACRO: None Signed by: Raul Warren 06/09/2025 6:21 PM Dictation workstation: [id number] Authorizing ProviderResult TypeResult StatusBrandkacie FRANK-JOHN CT PROCEDURES Final Result documented in this encounter Visit Diagnoses Diagnosis Pyelonephritis- Primary Unspecified pyelonephritis documented in this encounter Administered Medications Medication OrderMAR ActionAction DateDoseRateSite cephalexin (Keflex) capsule 500 mg 500 mg, oral, Once, On Thu06/09/25 at 2155, For 1 dose, Suspected Indication (Select all that apply): Urinary Tract Infection, Type of Therapy: Empiric, Type of Urinary Tract Infection: Complicated,Indications: Urinary Tract Infection Indications:Urinary Tract ZrwbslazfIqwxt49/12/2025 10:01 PM XLK183 mg HYDROmorphone (Dilaudid) injection 0.5 mg 0.5 mg, intravenous, Once, On Thu06/09/25 at 1750, For 1 dose Given06/09/2025 6:29 PM EST0.5 mg lactated Ringer's bolus 1,000 mL 1,000 mL, intravenous, at 999 mL/hr, Administer over 1 Hours, Once, On Thu06/09/25 at 1750, For 1 dose New Bag06/09/2025 6:29 PM EST1,000 mL999 mL/hr ondansetron (Zofran) injection 4 mg 4 mg, intravenous, Once, On Thu06/09/25 at 1750, For 1 dose, When administering via IV Push, administer over 3-5 minutes. Given06/09/2025 6:29 PM EST4 mg orphenadrine (Norflex) injection 60 mg 60 mg, intravenous, Once, On Thu06/09/25 at 2005, For 1 dose Given06/09/2025 8:57 PM EST60 mg potassium chloride CR (Klor-Con M20) ER tablet 40 mEq 40 mEq, oral, Once, On Thu06/09/25 at 2014, For 1 dose, Best given with food and plenty of water to minimize gastric irritation. Do not crush or chew. Given06/09/2025 8:57 PM EST40 mEqdocumented in this encounter Active and Recently Administered Medications Times are shown in EST.Medication Order/ cephalexin (Keflex) capsule 500 mg (COMPLETED) 500 mg, oral, Once, On Thu06/09/25 at 2155, For 1 dose, Suspected Indication (Select all that apply): Urinary Tract Infection, Type of Therapy: Empiric, Type of Urinary Tract Infection: Complicated,Indications: Urinary Tract Infection * 2200 (Given - Provider: Alcira Palacio RN) HYDROmorphone (Dilaudid) injection 0.5 mg (COMPLETED) 0.5 mg, intravenous, Once, On Thu06/09/25 at 1750, For 1 dose * 1828 (Given - Provider: Breann Riggs RN) lactated Ringer's bolus 1,000 mL (COMPLETED) 1,000 mL, intravenous, at 999 mL/hr, Administer over 1 Hours, Once, On Thu06/09/25 at 1750, For 1 dose * 1828 (New Bag - Provider: Breann Riggs RN) * 2003 (Stopped - Provider: Spike Mota RN) ondansetron (Zofran) injection 4 mg (COMPLETED) 4 mg, intravenous, Once, On Thu06/09/25 at 1750, For 1 dose, When administering via IV Push, administer over 3-5 minutes. * 1828 (Given - Provider: Breann Riggs RN) orphenadrine (Norflex) injection 60 mg (COMPLETED) 60 mg, intravenous, Once, On Thu06/09/25 at 2004, For 1 dose * 2056 (Given - Provider: Spike Mota RN) potassium chloride CR (Klor-Con M20) ER tablet 40 mEq (COMPLETED) 40 mEq, oral, Once, On Thu06/09/25 at 2014, For 1 dose, Best given with food and plenty of water to minimize gastric irritation. Do not crush or chew. 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
--- OUTSIDE RECORDS SUMMARY | 2025-06-16 17:41 | XMS_ITS | Encounter Summary ---
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 History of kidney stones. Encounter Details DateTypeDepartmentCare Team (Latest Contact Info)Xpcyxqgqvnw43/19/2025 5:41 PM EST - 06/16/2025 7:56 PM [facility] Emergency Room [address] [place] [address] Right flank pain (Primary Dx) Discharge Disposition: Home Social History Tobacco UseTypesPacks/DayYears UsedDateSmoking Tobacco: NeverPassive Smoke Exposure: NeverSmokeless Tobacco: NeverAlcohol UseStandard Drinks/WeekComments Defer0 (1 standard drink = 0.6 oz pure alcohol)PHQ-2AnswerDate RecordedPatient Health Questionnaire-2 Wctkv32007/21/2024Humiliation, Afraid, Rape, and Kick questionnaireAnswerDate RecordedWithin the [...] were you homeless or living in a half-way (including now)?No05/21/2025HC UtilitiesAnswerDate RecordedIn the past 12 months has the [employer], gas, oil, or water [employer] threatened to shut off services in your home?No05/21/2025CommentsNoSex and Gender InformationValueDate RecordedSex Assigned at BirthNot on fileLegal SexFemale 05/24/2022 6:27 AM ESTGender IdentityNot on fileSexual OrientationNot on file documented as of this encounter Last Filed Vital Signs Vital SignReadingTime TakenCommentsBlood Wvjcmtka450/6406/16/2025 7:54 PM EST Tdovz12911/19/2025 7:54 PM CFQYcwputibzlq29.3 ??C (97.3 ??F)06/16/2025 7:54 PM ESTRespiratory Oppm944208/17/2024 7:54 PM ESTOxygen Dpcvgimjtx21%06/16/2025 7:54 PM ESTInhaled Oxygen Concentration--Yxyrna859 kg (260 lb)06/16/2025 5:35 PM EST Fcvobs519.2 cm (5' 7 )06/16/2025 5:35 PM ESTBody Mass Index40.7206/16/2025 5:35 PM ESTdocumented in this encounter Functional Status * Vital SignsQuestionAnswerDate of SawlztlhtnFaigjbSycqr83260/19/2025 7:54 PM Yolanda Guo LPN * Sifuentes Fall RiskQuestionAnswerDate of AssessmentAuthorHistory of Falling, Immediate or Within 3 Uybyap734 5:37 PM Trudy Moss, RNSecondary Hceukvsra9352/19/2025 5:37 PM ESTWagnerlTrudy, RNAmbulatory Dul573 5:37 PM ESTWagnerlTrudy, RNIntravenous Therapy/Heparin Ectp8187 5:37 PM EST DominguezTrudy, RNGait/Wlwdkchasaac902/19/2025 5:37 PM ESTHallTrudy, RNMental Qibgtb047 5:37 PM ESTWagnerlTrudy, RNMorse Fall Risk Zllzw680306/16/2025 5:37 PM Trudy Moss, RN * Abuse ScreenQuestionAnswerDate of AssessmentAuthorHave you had any thoughts of harming anyone else?No06/16/2025 5:38 PM ESTHall, Trudy, RNAre there any apparent signs of injuries/behaviors that could be related to abuse/neglect?No 06/16/2025 5:38 PM ESTHall, Trudy, RNAre you or have you been threatened or abused physically, emotionally, or sexually by anyone?No06/16/2025 5:38 PM Trudy Frederick RNHas anyone ever threatened to hurt your family or your pets?No 06/16/2025 5:38 PM Trudy Moss RNDoes anyone try to keep you from having/contacting other friends or doing things outside your home?No06/16/2025 5:38 PM Trudy Moss RNDo you feel UNSAFE going back to the place where you are living?No06/16/2025 5:38 PM Trudy Moss RNDo you feel anyone has exploited or taken advantage of you financially or of your personal property? No06/16/2025 5:38 PM Trudy Moss RNAbuse ZalgklYqsto99/19/2025 5:38 PM Trudy Frederick RN * Ability to Assess Risk ScreenQuestionAnswerDate of AssessmentAuthorRisk Screen - Ability to AssessAble to be qowdgtic98/19/2025 5:37 PM Trudy Moss RN * Calculated C-SSRS Risk Score (Lifetime/Recent)AnswerDate of AssessmentAuthorNo Risk Qntaemqrx91/19/2025 5:37 PM Trudy Moss RN * [place] Suicide Severity Rating Scale (Screener/Recent Self-Report)Question AnswerDate of AssessmentAuthor1. Wish to be (Past 1 Month)No06/16/2025 5:37 PM Trudy Moss RN2. Non-Specific Active Suicidal Thoughts (Past 1 Month)No06/16/2025 5:37 PM Trudy Moss RN6. Suicidal Behavior (Lifetime)No 06/16/2025 5:37 PM Trudy Moss RN documented as of this encounter Discharge Instructions * Attachments The following attachments cannot be sent through Care Everywhere. * Flank Pain Discharge Instructions (Kinyarwanda) documented in this encounter Medications at Time of Discharge MedicationSigDispense QuantityRefillsLast FilledStart DateEnd Date acetaminophen (Tylenol) 500 mg tablet Indications:Right flank painTake 1 tablet (500 mg) by mouth every 6 hours if needed for mild pain (1 - 3) for up to 7 days. 28 tablet ARIPiprazole (Abilify) 20 mg tablet Take 1 [...] mg) by mouth 2 times a day. ondansetron ODT (Zofran-ODT) 4 mg disintegrating tablet Indications:Right flank painDissolve 1 tablet (4 mg) in the mouth every 8 hours if needed for nausea or vomiting for up to 7 days. 20 tablet pantoprazole (ProtoNix) 40 mg EC tablet Take [...] a day for 10 days. 40 capsule 5108/20/2024documented as of this encounter ED Notes * Grey Coon PA-C - 06/16/2025 5:45 PM EST HPI Chief Complaint Patient presents with Flank Pain Here for right flank pain that started today. History of kidney stones. History provided by: Patient Limitations to history: None CC: Flank pain HPI: 50-year-old female with a history of kidney stones, type 2 diabetes, GERD, hyperlipidemia presents the emergency department to be evaluated for flank pain. Patient states the flank pain started earlier today and localize the pain to the right side. She denies radiation or anything that makes the pain better or worse. She states that her pain feels similar to the last time she had kidney stones. Denies chest pain, shortness of breath, pleuritic pain, hemoptysis. Denies low back pain, saddleanesthesia, urinary tension, stool incontinence. Denies numbness, tingling, weakness of extremities. Reports nausea and vomiting. Denies fever and chills. Denies urgency, frequency, dysuria. Denies blood in the urine or stool. Patient was treated for pyelonephritis a week ago with oral Keflex, she was doing well until her pain started today. ROS: Negative unless mentioned in HPI Medical Hx: Allergies reviewed. Immunizations are up-to-date. Physical exam: Constitutional: Sitting comfortably in the room and in no distress. Oriented to person, place, time, and situation. HEENT: Head is normocephalic, atraumatic. Patient's airway is patent. Tympanic membranes are clear bilaterally. Nasal mucosa clear. Mouth with normal mucosa. Throat is not erythematous and there are no oropharyngeal exudates, uvula is midline. No obvious facial deformities. Eyes: Clear bilaterally. Pupils are equal round and reactive to light and accommodation. Extraocular movements intact. Cardiac: Regular rate, regular rhythm. Heart sounds S1, S2. No murmurs, rubs, or gallops. PMI nondisplaced. No JVD. Respiratory: Regular respiratory rate and effort. Breath sounds are clear and equal bilaterally, noadventitious lung sounds. Patient is speaking in full sentences and is in no apparent respiratory distress. No use of accessory muscles. Gastrointestinal: Abdomen is soft, nondistended, and nontender. There are no obvious deformities. No rebound tenderness or guarding. Bowel sounds are normal active. Genitourinary: Right CVA tenderness Musculoskeletal: No reproducible tenderness. No obvious skin or bony deformities. Patient has equalrange of motion in all extremities and no strength deficiencies. No muscle or joint tenderness. No back or neck tenderness. Capillary refill less than 3 seconds. Strong peripheral pulses. No sensory d eficits. Neurological: Patient is alert and oriented. No focal deficits. 5/5 strength in all extremities. Cranial nerves II through XII intact. GCS15. Skin: Skin is normal color for race and is warm, dry, and intact. No evidence of trauma. No lesions, rashes, bruising, jaundice, or masses. Psych: Appropriate mood and affect. No apparent risk to self or others. Heme/lymph: No adenopathy, lymphadenopathy, or splenomegaly Physical exam is otherwise negative unless stated above or in history of present illness. Patient History Medical History[1] Surgical History[2] Family History[3] Social History[4] Physical Exam ED Triage Vitals [06/16/25 1735] Temperature Heart Rate Respirations BP 36 ??C (96.8 ??F) (!) 115 18 (!) 151/94 Pulse Ox Temp Source Heart Rate Source Patient Position 96 % Temporal Monitor Sitting BP Location FiO2 (%) Right arm -- Physical Exam ED Course & MDM Diagnoses as of 06/16/25 192 Right flank pain Patient updated on plan for lab testing, IV insertion, radiology imaging, and medications to be administered while in the ER (if indicated). Patient updated on expected wait times for testing and results. Patient provided my name and told to ask any staff member for questions or concerns if they should arise. Electronic medical record reviewed. [facility] Patient presented to the emergency department with the chief complaint flank pain. Examination of the heart and lungs are unremarkable. Patient has right CVA tenderness on exam. On arrival to the emergency department, vital signs were significant tachycardia and hypertension. Patient was given fluids, IV Tylenol, IV Zofran, IV Dilaudid for her discomfort. Will obtain basic blood work, urinalysis, lactate, CT abdomen and pelvis. CBC reveals no leukocytosis or anemia. CMP reveals hyperglycemia 141. Urinalysis reveals primarily hematuria. Patient does have 1+ bacteria and 250 leukocyte esterase. No nitrites. Patient's white blood cells have resolved. Patient's urinary tract infection appears to have improved. She does have squamous cells that could represent contamination. Low suspicion for persistent UTI given the lack ofdysuria, hematuria. No leukocytosis or left shift count. No fever. CT abdomen and pelvis reveals stones in the right kidney but no stone in the ureter or hydronephrosis. I did discuss differentials including renal colic. She feels well and feels comfortable going home. Vital signs are within normal limits. Patient will be discharged with Zofran and Tylenol. She will follow-up with her primary care provider and she does have a urologist that she can follow-up with. All questions and concerns addressed. Reasons to return to ER discussed. Patient verbalized understanding and agreement with the treatment plan and they remained hemodynamically stable in the ER. This note was dictated using a speech recognition program. While an attempt was made at proof-reading to minimize errors, minor errors in search and rescue officer may be present No data recorded Medical Decision Making Procedure Procedures [1] Past Medical History: Diagnosis Date Diabetes mellitus (Multi) GERD (gastroesophageal reflux disease) [2] Past Surgical History: Procedure Laterality Date CT ABDOMEN PELVIS ANGIOGRAM W AND/OR WO IV CONTRAST 11/09/2019 CT ABDOMEN PELVIS ANGIOGRAM W AND/OR WO IV CONTRAST 11/09/2019 [email or web address] CLINICAL LEGACY [3] No family history on file. [4] Social History Tobacco Use Smoking status: Never Passive exposure: Never Smokeless tobacco: Never Vaping Use Vaping status: Never Used Substance Use Topics Alcohol use: Defer Drug use: Never Grey Coon PA-C 06/16/251925 documented in this encounter Plan of Treatment Not on file documented as of this encounter Goals GoalPatient Goal TypeAssociated ProblemsRecent ProgressPatient-Stated?Author Angie Post Discharge Nuisance Wildlife Specialist Goal Template Care PlanMyChart Post Discharge Nuisance Wildlife Specialist Problem TemplateNoMychart, Genericdocumented as of this encounter Procedures Procedure NamePriorityDate/TimeAssociated DiagnosisCommentsCBC WITH AUTO QNUJGHQTSXQKHNEU10/19/2025 6:35 PM EST VSHKOLTGFYM80/19/2025 6:35 PM EST COMPREHENSIVE METABOLIC XQRQMHDKV29/19/2025 6:35 PM EST EXTRA URINE HANCOCK UKJZCXHJ68/19/2025 6:15 PM ESTURINALYSIS WITH REFLEX MICROSCOPIC AND DRBTTBYUHXQ90/19/2025 6:15 PM EST URINALYSIS MICROSCOPIC LNLNFZDJ21/19/2025 6:15 PM EST URINALYSIS WITH REFLEX MICROSCOPIC AND TLANUJVQSLB43/19/2025 6:15 PM EST URINE BQSLWHPTPCJ08/19/2025 6:[address] ABDOMEN PELVIS WO IV GJEYUTYYJMHI49/19/2025 5:57 PM EST documented in this encounter Results * Lactate (06/16/2025 6:35 PM EST)ComponentValueRef RangeTest MethodAnalysis TimePerformed AtPathologist SignatureLactate0.90.4 - 2.0 mmol/L LAB CHEMISTRY METHOD 06/16/2025 7:07 PM [facility] LABSpecimen (Source)Anatomical Location / LateralityCollection Method / VolumeCollection TimeReceived TimeBlood Venous blood specimen / UnknownVenipuncture / Kldlofk9806/16/2025 6:35 PM EST 06/16/2025 6:47 PM EST Narrative [facility] - 06/16/2025 7:07 PM EST Venipuncture immediately after or during the administration of Metamizole may lead to falsely low results. Testing should be performed immediately prior to Metamizole dosing. Authorizing ProviderResult TypeResult StatusNovj HERNDON BLOOD ORDERABLESFinal ResultPerforming OrganizationAddressCity/State/ZIP CodePhone Number [facility] [address] [place] [address] * (ABNORMAL) Comprehensive metabolic panel (06/16/2025 6:35 PM EST)Component ValueRef RangeTest MethodAnalysis TimePerformed AtPathologist SignatureGlucose 141(H)74 - 99 mg/dL LAB CHEMISTRY METHOD 06/16/2025 7:08 PM [facility] PPNSdyztc653840 - 145 mmol/L LAB CHEMISTRY METHOD 06/16/2025 7:08 PM [facility] LABPotassium3.63.5 - 5.3 mmol/L LAB CHEMISTRY METHOD 06/16/2025 7:08 PM [facility] KMCZhpbghjx55828 - 107 mmol/L LAB CHEMISTRY METHOD 06/16/2025 7:08 PM [facility] GMJNlzfxnfxkgr6161 - 32 mmol/L LAB CHEMISTRY METHOD 06/16/2025 7:08 PM [facility] LABComment:Bicarbonate results may be falsely elevated when Lactate Dehydrogenase (LDH) concentrations exceed 2,000 U/L due to a temporary reagent manufacturing issue. If significantly elevated LDH levels are suspected, interpret bicarbonate results with caution, correlate with the patient???s clinical status, and consider confirming CO2 values using a blood gas analyzer.Anion Lkj2992 - 20 mmol/L LAB CHEMISTRY METHOD 06/16/2025 7:08 PM [facility] LABUrea Xvsvhuzi06 - 23 mg/dL LAB CHEMISTRY METHOD 06/16/2025 7:08 PM [facility] LABCreatinine0.570.50 - 1.05 mg/dL LAB CHEMISTRY METHOD 06/16/2025 7:08 PM [facility] LABeGFR>90>60 mL/min/1.73m*2 LAB CHEMISTRY METHOD 06/16/2025 7:08 PM [facility] LABComment: Calculations of estimated GFR are performed using the 2020 CKD-EPI Study Refit equation without therace variable for the IDMS-Traceable creatinine methods. https://jasn.asnjournals.org/content/early/ASN.6012682557 Calcium9.68.6 - 10.3 mg/dL LAB CHEMISTRY METHOD 06/16/2025 7:08 PM [facility] LABAlbumin4.33.4 - 5.0 g/dL LAB CHEMISTRY METHOD 06/16/2025 7:08 PM [facility] LABAlkaline Dmunnjkskbi4079 - 110 U/L LAB CHEMISTRY METHOD 06/16/2025 7:08 PM [facility] LABTotal Protein7.36.4 - 8.2 g/dL LAB CHEMISTRY METHOD 06/16/2025 7:08 PM [facility] CGGFYG111 - 39 U/L LAB CHEMISTRY METHOD 06/16/2025 7:08 PM [facility] LABBilirubin, Total0.40.0 - 1.2 mg/dL LAB CHEMISTRY METHOD 06/16/2025 7:08 PM [facility] CVLMNL973 - 45 U/L LAB CHEMISTRY METHOD 06/16/2025 7:08 PM [facility] LABComment:Patients treated with Sulfasalazine may generate falsely decreased results for ALT.Specimen (Source) Anatomical Location / LateralityCollection Method / VolumeCollection Time Received TimeBloodVenous blood specimen / UnknownVenipuncture / Unknown 06/16/2025 6:35 PM EST06/16/2025 6:47 PM EST Narrative Authorizing ProviderResult TypeResult StatusNovj HERNDON BLOOD ORDERABLESFinal ResultPerforming OrganizationAddressCity/State/ZIP CodePhone Number [facility] [address] [place] [address] * CBC and Auto Differential (06/16/2025 6:35 PM EST)ComponentValueRef RangeTest MethodAnalysis TimePerformed AtPathologist SignatureWBC6.24.4 - 11.3 x10*3/uL LAB HEMATOLOGY METHOD 06/16/2025 6:51 PM [facility] LABnRBC0.00.0 - 0.0 /100 WBCs LAB HEMATOLOGY METHOD 06/16/2025 6:51 PM [facility] LABRBC4.454.00 - 5.20 x10*6/uL LAB HEMATOLOGY METHOD 06/16/2025 6:51 PM [facility] WDJVynftgkwtf47.212.0 - 16.0 g/dL LAB HEMATOLOGY METHOD 06/16/2025 6:51 PM [facility] ROKMrgxbmkuzh54.936.0 - 46.0 % LAB HEMATOLOGY METHOD 06/16/2025 6:51 PM [facility] ZRVECD6723 - 100 fL LAB HEMATOLOGY METHOD 06/16/2025 6:51 PM [facility] WJONGI87.726.0 - 34.0 pg LAB HEMATOLOGY METHOD 06/16/2025 6:51 PM [facility] JRCMUCE55.932.0 - 36.0 g/dL LAB HEMATOLOGY METHOD 06/16/2025 6:51 PM [facility] JIBQCO27.311.5 - 14.5 % LAB HEMATOLOGY METHOD 06/16/2025 6:51 PM [facility] CBCNyqgxnoly510218 - 450 x10*3/uL LAB HEMATOLOGY METHOD 06/16/2025 6:51 PM [facility] LABNeutrophils %58.740.0 - 80.0 % LAB HEMATOLOGY METHOD 06/16/2025 6:51 PM [facility] LABImmature Granulocytes %, Automated0.20.0 - 0.9 % LAB HEMATOLOGY METHOD 06/16/2025 6:51 PM [facility] LABComment:Immature Granulocyte Count (IG) includes promyelocytes, myelocytes and metamyelocytes but does not i nclude bands. Percent differential counts (%) should be interpreted in the context of the absolute cell counts (cells/UL).Lymphocytes %30.613.0 - 44.0 % LAB HEMATOLOGY METHOD 06/16/2025 6:51 PM [facility] LABMonocytes %7.42.0 - 10.0 % LAB HEMATOLOGY METHOD 06/16/2025 6:51 PM [facility] LABEosinophils %2.60.0 - 6.0 % LAB HEMATOLOGY METHOD 06/16/2025 6:51 PM [facility] LABBasophils %0.50.0 - 2.0 % LAB HEMATOLOGY METHOD 06/16/2025 6:51 PM [facility] LABNeutrophils Absolute3.651.20 - 7.70 x10*3/uL LAB HEMATOLOGY METHOD 06/16/2025 6:51 PM [facility] LABComment:Percent differential counts (%) should be interpreted in the context of the absolute cell counts (ce lls/uL).Immature Granulocytes Absolute, Automated0.010.00 - 0.70 x10*3/uL LAB HEMATOLOGY METHOD 06/16/2025 6:51 PM [facility] LABLymphocytes Absolute1.901.20 - 4.80 x10*3/uL LAB HEMATOLOGY METHOD 06/16/2025 6:51 PM [facility] LABMonocytes Absolute0.460.10 - 1.00 x10*3/uL LAB HEMATOLOGY METHOD 06/16/2025 6:51 PM [facility] LABEosinophils Absolute0.160.00 - 0.70 x10*3/uL LAB HEMATOLOGY METHOD 06/16/2025 6:51 PM [facility] LABBasophils Absolute0.030.00 - 0.10 x10*3/uL LAB HEMATOLOGY METHOD 06/16/2025 6:51 PM [facility] LABSpecimen (Source)Anatomical Location / LateralityCollection Method / VolumeCollection TimeReceived TimeBlood Venous blood specimen / UnknownVenipuncture / Srkvumf7906/16/2025 6:35 PM EST 06/16/2025 6:47 PM EST Narrative Authorizing ProviderResult TypeResult StatusGrey HERNDON BLOOD ORDERABLESFinal ResultPerforming OrganizationAddressCity/State/ZIP CodePhone Number [facility] [address] [place] [address] * (ABNORMAL) Urine Culture (06/16/2025 6:15 PM EST)ComponentValueRef RangeTest MethodAnalysis TimePerformed AtPathologist SignatureUrine CultureGrowth indicates contamination with Gram positive dianna. Repeat culture if clinically indicated.06/18/2025 12:49 PM [facility] LABUrine Culture<=10,000 CFU/mL Streptococcus agalactiae (Group B Streptococcus)(A) MICROSCAN 06/18/2025 12:49 PM [facility] LABComment: Streptococcus agalactiae (Group B Streptococcus, GBS) may be significant in individuals. Recovery from non- individuals likely represents an insignificant finding. Routine GBS screening should be ordered using test ???Group B Streptococcus (GBS) Screen, Culture?? ([id number]). Specimen (Source)Anatomical Location / LateralityCollection Method / Volume Collection TimeReceived TimeUrineUrine specimen / Ranvxdo3006/16/2025 6:15 PM EST 06/16/2025 6:52 PM EST Narrative [facility] - 06/18/2025 12:49 PM EST Streptococcus agalactiae (Group B Streptococcus) is universally susceptible to beta-lactam antibiotics and vancomycin. Routine susceptibility testing not performed. For penicillin allergic patients, please contact the laboratory within 5 days of collection at to request susceptibility testing. Authorizing ProviderResult TypeResult Jonathon HERNDON MICROBIOLOGY - GENERAL ORDERABLESFinal ResultPerforming OrganizationAddressCity/State/ZIP CodePhone Number [facility] [address] [place], [place] [id number] * (ABNORMAL) Microscopic Only, Urine (06/16/2025 6:15 PM EST)ComponentValueRef RangeTest MethodAnalysis TimePerformed AtPathologist SignatureWBC, Urine1-51- 5, NONE /HPF06/16/2025 6:44 PM [facility] LABRBC, Urine>20(A) NONE, 1-2, 3-5 /HPF06/16/2025 6:44 PM [facility] LABSquamous Epithelial Cells, Hwdoz50-29 (FEW)Reference range not established. /HPF 06/16/2025 6:44 PM [facility] LABBacteria, Urine1+(A)NONE SEEN /HPF06/16/2025 6:44 PM [facility] LABSpecimen (Source)Anatomical Location / LateralityCollection Method / VolumeCollection TimeReceived Time UrineUrine specimen / Dcewtoq9206/16/2025 6:15 PM EST06/16/2025 6:19 PM EST Narrative Authorizing ProviderResult TypeResult Jonathon HERNDON URINE ORDERABLESFinal ResultPerforming OrganizationAddressCity/State/ZIP CodePhone Number [facility] [address] [place] [address] * Extra Urine [place] Tube (06/16/2025 6:15 PM EST)ComponentValueRef RangeTest MethodAnalysis TimePerformed AtPathologist SignatureExtra Tube06/19/2025 8:35 AM [facility] LABSpecimen (Source)Anatomical Location / LateralityCollection Method / VolumeCollection TimeReceived TimeUrineUrine specimen / Uzidsth5206/16/2025 6:15 PM EST06/16/2025 6:19 PM EST Narrative Authorizing ProviderResult TypeResult StatusNovj HERNDON URINE ORDERABLESFinal ResultPerforming OrganizationAddressCity/State/ZIP CodePhone Number [facility] [address] [place] [address] * (ABNORMAL) Urinalysis with Reflex Culture (06/16/2025 6:15 PM EST)Component ValueRef RangeTest MethodAnalysis TimePerformed AtPathologist SignatureColor, UrineLight-Faulk(N)Light-Yellow, Yellow, Dark-Tidovg1106/16/2025 6:53 PM [facility] LABAppearance, UrineTurbid(N)Clear06/16/2025 6:53 PM [facility] LABSpecific Dietrich, Urine1.0151.005 - 1.035 LAB URINALYSIS - AUTOMATED METHOD 06/16/2025 6:53 PM [facility] LABpH, Urine7.05.0, 5.5, 6.0, 6.5, 7.0, 7.5, 8. 6:53 PM [facility] LABProtein, Urine NEGATIVENEGATIVE, 10 (TRACE), 20 (TRACE) mg/dL06/16/2025 6:53 PM [facility] LABGlucose, UrineOVER (4+)(A)Normal mg/dL06/16/2025 6:53 PM [facility] LABBlood, UrineOVER (3+)(A)NEGATIVE mg/dL06/16/2025 6:53 PM [facility] LABKetones, UrineNEGATIVENEGATIVE mg/dL06/16/2025 6:53 PM [facility] LABBilirubin, UrineNEGATIVENEGATIVE mg/dL 06/16/2025 6:53 PM [facility] LABUrobilinogen, UrineNormalNormal mg/dL06/16/2025 6:53 PM [facility] LABNitrite, UrineNEGATIVE KKIRLRMI51/19/2025 6:53 PM [facility] LABLeukocyte Esterase, Urine 250 Matthew/uL(A)QUXDTZEC79/19/2025 6:53 PM [facility] LABSpecimen (Source)Anatomical Location / LateralityCollection Method / VolumeCollection TimeReceived TimeUrineUrine specimen / Xvkkepi9306/16/2025 6:15 PM EST06/16/2025 6:19 PM EST Narrative [facility] - 06/16/2025 6:53 PM EST OVER is reported when the result is greater than the clinically reportable range. Authorizing ProviderResult TypeResult StatusNovj [place] URINE ORDERABLESFinal ResultPerforming OrganizationAddressCity/State/ZIP CodePhone Number [facility] [address] [place] [address] * CT abdomen pelvis wo IV contrast (06/16/2025 5:57 PM EST)Anatomical Region LateralityModalityAbdominal, BodyComputed TomographySpecimen (Source) Anatomical Location / LateralityCollection Method / VolumeCollection Time Received Time06/16/2025 6:22 PM EST06/16/2025 6:22 PM EST Impressions 06/16/2025 6:21 PM EST Punctate nonobstructing bilateral renal stones. No obstructive uropathy. ?? No other acute findings seen abdomen or pelvis. ? MACRO: None. ?? Signed by: Ryan Ortiz 06/16/2025 6:21 PM Dictation workstation: ?? [id number] Narrative 06/16/2025 6:21 PM EST Interpreted By: Ryan Ortiz, STUDY: CT ABDOMEN PELVIS WO IV CONTRAST; ??06/16/2025 5:57 pm ?? INDICATION: Signs/Symptoms:right flank pain. ?? COMPARISON: None. ?? ACCESSION NUMBER(S): [id number] ?? ORDERING CLINICIAN: GREY COON ?? TECHNIQUE: Contiguous axial images of the abdomen and pelvis were obtained without iodinated contrast. Coronal and sagittal reformatted images were reconstructed from the axial data. ?? FINDINGS: Noncontrast appearance of the liver, adrenals, pancreas and spleen are unremarkable. ?? Gallbladder is surgically absent. ?? There are punctate nonobstructing bilateral renal stones. No hydronephrosis or hydroureter. The bladder is unremarkable. ?? No small bowel obstruction. There is moderate stool in the colon. No appendix identified. ?? Normal caliber aorta. ?? No free fluid or significant adenopathy. ?? Mild spondylotic degeneration axial skeleton. ?? Procedure Note Ryan Ortiz MD - 06/16/2025 Interpreted By: Ryan Ortiz, STUDY: CT ABDOMEN PELVIS WO IV CONTRAST; 06/16/2025 5:57 pm INDICATION: Signs/Symptoms:right flank pain. COMPARISON: None. ACCESSION NUMBER(S): [id number] ORDERING CLINICIAN: GREY COON TECHNIQUE: Contiguous axial images of the abdomen and pelvis were obtained without iodinated contrast. Coronal and sagittal reformatted images were reconstructed from the axial data. FINDINGS: Noncontrast appearance of the liver, adrenals, pancreas and spleen are unremarkable. Gallbladder is surgically absent. There are punctate nonobstructing bilateral renal stones. No hydronephrosis or hydroureter. The bladder is unremarkable. No small bowel obstruction. There is moderate stool in the colon. No appendix identified. Normal caliber aorta. No free fluid or significant adenopathy. Mild spondylotic degeneration axial skeleton. IMPRESSION: Punctate nonobstructing bilateral renal stones. No obstructive uropathy. No other acute findings seen abdomen or pelvis. MACRO: None. Signed by: Ryan Ortiz 06/16/2025 6:21 PM Dictation workstation: [id number] Authorizing ProviderResult TypeResult StatusGrey KOTHARI CT PROCEDURES Final Result documented in this encounter Visit Diagnoses Diagnosis Right flank pain- Primary Abdominal pain, unspecified site documented in this encounter Administered Medications Medication OrderMAR ActionAction DateDoseRateSite acetaminophen (Ofirmev) injection 1,000 mg 1,000 mg, intravenous, at 400 mL/hr, Administer over 15 Minutes, Once, On Thu06/16/25 at 1750, For1 dose, Administer 6 hours after last dose. New Bag06/16/2025 6:34 PM EST1,000 mg400 mL/hr HYDROmorphone (Dilaudid) injection 0.5 mg 0.5 mg, intravenous, Once, On Thu06/16/25 at 1750, For 1 dose Given06/16/2025 6:34 PM EST0.5 mg ondansetron (Zofran) injection 4 mg 4 mg, intravenous, Once, On Thu06/16/25 at 1750, For 1 dose, When administering via IV Push, administer over 3-5 minutes. Given06/16/2025 6:34 PM EST4 mg sodium chloride 0.9 % bolus 1,000 mL 1,000 mL, intravenous, at 999 mL/hr, Administer over 1 Hours, Once, On Thu06/16/25 at 1750, For 1 dose New Bag06/16/2025 6:33 PM EST1,000 mL999 mL/hrdocumented in this encounter Active and Recently Administered Medications Times are shown in EST.Medication Order06/14/20240630//20240630/ acetaminophen (Ofirmev) injection 1,000 mg (COMPLETED) 1,000 mg, intravenous, at 400 mL/hr, Administer over 15 Minutes, Once, On Thu06/16/25 at 1750, For1 dose, Administer 6 hours after last dose. * 1833 (New Bag - Provider: Emma Apodaca, SHALOM) * 191 (Stopped - Provider: Loli Chavez RN) HYDROmorphone (Dilaudid) injection 0.5 mg (COMPLETED) 0.5 mg, intravenous, Once, On Thu06/16/25 at 1750, For 1 dose * 1833 (Given - Provider: Emma Apodaca, SHALOM) ondansetron (Zofran) injection 4 mg (COMPLETED) 4 mg, intravenous, Once, On Thu06/16/25 at 1750, For 1 dose, When administering via IV Push, administer over 3-5 minutes. 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
[2025-06-22 17:06] VITALS: BP 130/95; PULSE 133; TEMP 37.3; O2SAT 99; BMI 39.2
[2025-06-22 17:28] LABS: Hematocrit 42.9 % (36.0-48.0); Hemoglobin 14.6 g/dL (12.0-16.0); Immature Granulocytes Abs Auto 0.01 10^3/uL (0.00-0.03); Immature Granulocytes Pct Auto 0.1 % (0.0-0.5); Lymphocytes Absolute Auto 2.1 10^3/uL (1.2-3.8); Mean Corpuscular HGB Conc 34.0 g/dL (29.9-35.2); Mean Corpuscular Hemoglobin 30.1 pg (26.7-34.0); Mean Corpuscular Volume 88.5 fL (81.0-99.0); Platelet Count 207 10^3/uL (150-450); Red Blood Count 4.85 10^6/uL (4.20-5.40); White Blood Count 6.9 10^3/uL (4.0-11.0)
[2025-06-22 17:30] LABS: Glucose Urine UA >=1000 mg/dL (NEGATIVE)
--- OUTSIDE RECORDS SUMMARY | 2025-06-22 17:36 | XMS_ITS | Clinical Summary ---
Author Organization [facility] Address [address] [place] [address] Care Team Providers Care Career Technical Education Instructor Name Role Phone Skye Jones CNP Primary Care Provider [phone] Allergies Active AllergyReactionsCriticalityNoted DateCommentsAspirinOther (See Comments) Low04/23/2011 Pt states gives me nosebleeds (epistaxis) TxininfpmkrjZgbni99/20/2013CiprofloxacinHives,XxcdVqonlj75/11/2020FentanylRash High12/22/2017 Other reaction(s): Hives, Hives/Urticaria KetorolacHives,ZebrrurQkilqv33/20/3159IxlieYwtutbcs93/30/2024MeperidineHives Jptudw9306/17/20132821XjmcqyskFxhfcOqgwts16/26/2018 Patient tolerates hydromorphone other narcotic allergies SibxezlsafDttcfWhslwy95/20/2013 04/05/24-per Dr. Marlow, pt tolerates oxy other narcotic allergies YljrypbwrpvNaeljXdleyz86/10/2021 Tolerates cefazolin, ceftriaxone 04/05/24-per Dr. Marlow, pt tolerates cefadroxil 3:55pm Medications MedicationSigDispense QuantityRefillsLast FilledStart DateEnd DateStatus traZODone (DESYREL) 300 MG tablet Take 1 (one) tablet (300 mg total) by mouth nightly .05/22/2021ctive blood-glucose meter kit 1 kit by Other route 4 (four) times a day before meals and nightly .06/19/2021 Active tiZANidine (ZANAFLEX) 4 MG tablet Take 1 (one) tablet (4 mg total) by mouth 2 (two) times a day .11/27/2021ctive UltiCare Pen Needle 32 gauge x 5/32 Ndle USE 1 PEN NEEDLE 4 TIMES DAILY BEFORE MEAL(S) AND ERPQCLK2610/25/2021ctive gabapentin (NEURONTIN) 600 MG tablet Indications:neuropathic painTake 1 (one) tablet (600 mg total) by mouth 2 (two) times a day Reasons: neuropathic pain.11/19/2021ctive promethazine (PHENERGAN) 25 MG tablet Take 1 (one) tablet (25 mg total) by mouth every 6 (six) hours as needed for nausea . 10 tablet 12/06/2021 12:44 PM EDT12/06/2021ctive rosuvastatin (CRESTOR) 40 MG tablet Take 1 (one) tablet (40 mg total) by mouth daily .Active OLANZapine (ZYPREXA) 5 MG tablet Take 1 (one) tablet (5 mg total) by mouth 2 (two) times a day as needed .Active ARIPiprazole (ABILIFY) 20 MG tablet Take 1 (one) tablet (20 mg total) by mouth nightly .Active insulin glargine (LANTUS) 100 unit/mL injection Inject 40 (forty) Units under the skin nightly .Active loratadine (CLARITIN) 10 mg tablet Take 1 (one) tablet (10 mg total) by mouth daily .Active DULoxetine (CYMBALTA) 60 MG capsule Take 1 (one) capsule (60 mg total) by mouth 2 (two) times a day .12/10/2022 Active naloxone (NARCAN) 4 mg/actuation Conrad Administer 1 spray into one nostril for known or suspected opioid overdose. If patient worsens or does not respond, may repeat in 2-3 minutes. . 2 each ctive hydrOXYzine (VISTARIL) 50 MG capsule Take 1 (one) capsule (50 mg total) by mouth every 6 (six) hours as needed for anxiety .Active albuterol 90 mcg/actuation inhaler Inhale 2 (two) puffs every 6 (six) hours as needed for wheezing .Active insulin lispro (AdmeLOG,HumaLOG) 100 unit/mL injection Inject 35 (thirty five) Units under the skin 3 (three) times a day before meals .Active pantoprazole (PROTONIX) 40 MG tablet Take 1 (one) tablet (40 mg total) by mouth daily .Active meclizine (ANTIVERT) 25 mg tablet Take 1 (one) tablet (25 mg total) by mouth 3 (three) times a day as needed for nausea .Active metoprolol tartrate (LOPRESSOR) 25 MG tablet Take 1 (one) tablet (25 mg total) by mouth 2 (two) times a day . 60 tablet 5Active promethazine (PHENERGAN) 25 MG suppository Insert 1 (one) suppository (25 mg total) into the rectum every 6 (six) hours as needed for nausea Do not take within 6 hours of your other phenergan . 12 suppository 5Active oxyCODONE-acetaminophen (PERCOCET) 5-325 mg per tablet Take 1 (one) tablet by mouth every 6 (six) hours as needed for pain .Active ondansetron (ZOFRAN-ODT) 4 MG disintegrating tablet Dissolve 1 (one) tablet (4 mg total) on top of tongue every 6 to 8 hours as needed for nausea . 20 tablet 5Active promethazine (PHENERGAN) 25 MG tablet Take 1 (one) tablet (25 mg total) by mouth every 6 (six) hours as needed for nausea . 15 tablet 5Active metoclopramide (REGLAN) 10 MG tablet Take 1 (one) tablet (10 mg total) by mouth 4 (four) times a day as needed (N/V) . 12 tablet 5Active Active Problems ProblemNoted DateDiagnosed DateKidney dzvgmh7202/13/20259015Xrqrkypqqqmwsc43/11/2025 Acute vorwltfwyvegeh64/15/2024UTI (urinary tract infection)04/03/2024Flank pain 02/24/20248078Qntmgznesea06/08/2022ondyloma acuminatum due to human papillomavirus (HPV)08/26/20211373Mwvogjotc64/06/2021hest pain01/27/2021Generalized abdominal pain 08/22/2020 Family History Medical HistoryRelationCommentsHeart diseaseFatherRelationStatusCommentsFather Other Social History Tobacco UseTypesPacks/DayYears UsedDateSmoking Tobacco: NeverSmokeless Tobacco: Never Tobacco Cessation:Counseling Given: Not Answered Alcohol UseStandard Drinks/WeekCommentsNever0 (1 standard drink = 0.6 oz pure alcohol)[facility] UtilitiesAnswerDate RecordedIn the past 12 months has the electric, gas, oil, or water company threatened to shut off services in your home?No 02/13/2025Humiliation, Afraid, Rape, and Kick questionnaireAnswerDate Recorded Within the last year, have you been afraid of your partner or ex-partner?No 02/13/2025Within the last year, have you been humiliated or emotionally abused in other ways by your partner or ex-partner?No02/13/2025Within the last year, have you been kicked, hit, slapped, or otherwise physically hurt by your partner or ex-partner?No02/13/2025Within the last year, have you been raped or forced to have any kind of sexual activity by your partner or ex-partner?No02/13/2025 AUDIT-CAnswerDate RecordedQ1: How often do you have a drink containing alcohol? Never10/18/2020verage Number of DrinksNot on file10/18/2020Frequency of Binge DrinkingNot on file1PHQ-2AnswerDate RecordedPHQ-2 Total Score0 04/04/2024Hunger Vital SignAnswerDate RecordedWithin the past 12 months, you worried that your food would run out before you got the money to buymore.Never true02/13/2025Within the past 12 months, the food you bought just didn't last and you didn't have money to get more.Never true02/13/2025PRAPARE - TransportationAnswerDate RecordedIn the past 12 months, has lack of transportation kept you from medical appointments or from getting medications?No 02/13/2025In the past 12 months, has lack of transportation kept you from meetings, work, or from getting things needed for daily living?No02/13/2025 Housing Stability Vital SignAnswerDate RecordedIn the last 12 months, was there a time when you were not able to pay the mortgage or rent on time?No02/13/2025In the past 12 months, how many times have you moved where you were living?0 02/13/2025t any time in the past 12 months, were you homeless or living in a alf (including now)?No02/13/2025CommentsNoSex and Gender Information ValueDate RecordedSex Assigned at BirthNot on fileLegal JlqPjgxkq02/22/2015 8:07 AM EDTGender EdfojzgsTtjogi72/10/2021 9:32 PM ESTSexual OrientationStraight 07/08/2020 9:32 PM EST Last Filed Vital Signs Vital SignReadingTime TakenCommentsBlood Pbscnkor206/7403/17/2025 4:00 PM EDT Ayltd79010/19/2025 4:00 PM DNJVmnmmpejtrb87.1 ??C (98.8 ??F)03/17/2025 10:07 AM EDTRespiratory Zzap325203/17/2025 4:03 PM EDTOxygen Avulffmcka22%03/17/2025 4:00 PM EDTInhaled Oxygen Concentration--Afoafn122.5 kg (270 lb)03/17/2025 10:07 AM RGAAkebtx923.2 cm (5' 7 )03/17/2025 10:07 AM EDTBody Mass Index42.29003/17/2025 10:07 AM EDT Plan of Treatment Health MaintenanceDue DateLast DoneCommentsCT Jgezdnqohxfj1975Fecal DNA 1975Diabetic Eye Exam1985Diabetic Foot Exam1985Urine (micro)albumin/creatinine ratio - Zqiiuduk92/28/1985HIV Imvuhznqe02/28/1990 Hepatitis C Jyfjuptwv35/28/1993Hepatitis A Vaccines (1 of 2 - Risk 2-dose series)1994Hepatitis B Vaccines (1 of 3 - 19+ 3-dose series)1994 Rcgkurltr13/28/2350Lfrgcgpuojl48/23/Fecal occult blood test (FOBT,FIT)Wellness VisitOVID-19 Vaccine ( season)2025Influenza Vaccine (#1)510/, 04/23/2018Depression Screening/Follow-Up (PHQ-2/9)/olorectal Cancer Screening/Qomavgmcfo79/28/2025Flexible knhogvbwuhjit80/28/2025RSV Vaccines (1 - Risk 50-74 years 1-dose series)2025Zoster Vaccines (1 of 2) 2025A1C05/28//, 02/25/2025, 01/06/2025, Additional history existseGFR ??? Wpksfono14/, 03/10/2025, 03/07/2025, Additional history existsTetanus/Diphtheria/Pertussis (2 - Td or Tdap)/10/2022 Cervical Cancer ScreeningDiscontinuedHPV/QyejaeVmajglzgamfv90/28/2022, 1Pap PbkgkEvfhbiruddwh35/28/2022, 08/22/2020neumococcal Vaccine: 50+ KiqnpYoatajybn66/05/2023HIB VaccinesAged OutNo longer eligible based on patient's age to complete this topicHPV Vaccines (No Doses Required)CompletedIPV VaccinesAged OutNo longer eligible based on patient's age to complete this topic Meningococcal ACWY VaccineAged OutNo longer eligible based on patient's age to complete this topicMeningococcal B VaccineAged OutNo longer eligible based on patient's age to complete this topicRotavirus VaccinesAged OutNo longer eligible based on patient's age to complete this topic Medical Devices ImplantedTypeAreaManufacturerDevice IdentifierShelf Expiration DateModel / Serial / LotStent 6 X 28 Contour W/O Wire - Sn/A Implanted:Qty: 1 on 01/30/2021 by Aleks Barbosa MD at [facility] Right: [employer] [id number] / N/A / [id number]pr IdentifierShelf Expiration DateModel / Serial / LotStent 6fr X 26cm Ureter W/O Wire - Sn/A Explanted:[facility]: [facility] [facility] U011/13/2023 [id number] / N/A / [id number] Procedures Procedure NamePriorityDate/TimeAssociated DiagnosisCommentsURINE AEROBIC CULTURE ASAP108/18/2024 2:38 PM EST Encounter for general adult medical examination without abnormal findings BASIC METABOLIC PHAIVQNYC66/19/2025 11:12 AM EDT HEMOGLOBIN T4ZDfm-Ne74/11/2025 9:38 AM EDT THINPREP PAP DOGTSXwymzky47/28/2022 3:41 PM EST Pap smear of vagina following gynecologic surgery Encounter for gynecological examination without abnormal finding REFLEX ONLY -- HIGH RISK HPV WITH GENOTYPE 16,60Tkhrbry28/28/2022 3:41 PM EST Pap smear of vagina following gynecologic surgery Encounter for gynecological examination without abnormal finding from Last 3 Months or Most Recently Relevant to Health Maintenance Results * Urine Aerobic Culture (06/17/2025 2:38 PM EST)ComponentValueRef RangeTest MethodAnalysis TimePerformed AtPathologist SignatureCulture< 10,000 CFU/mL of normal urogenital qaxnxkiqxr85/21/2025 8:05 PM [facility] LABSpecimen (Source)Anatomical Location / LateralityCollection Method / Volume Collection TimeReceived TimeUrineURINE SPECIMEN OBTAINED BY CLEAN CATCH PROCEDURE / Xwvsgls0806/17/2025 2:38 PM EST06/18/2025 12:51 AM EST Narrative Authorizing ProviderResult TypeResult StatusHaramol SSorin Burton MDMICROBIOLOGY - GENERAL ORDERABLESFinal ResultPerforming OrganizationAddressCity/State/ZIP Code Phone Number [facility] [address] [place] [address] * (ABNORMAL) BMP (03/17/2025 11:12 AM EDT)ComponentValueRef RangeTest Method Analysis TimePerformed AtPathologist IoisiykcrBdhhrb109(L)135 - 145 mmol/L 03/17/2025 11:48 AM EDTSH LABPotassium4.33.5 - 5.1 mmol/L03/17/2025 11:48 AM EDTS DNINlweieax26(L)98 - 108 mmol/L03/17/2025 11:48 AM EDTSH LABBicarbonate 2521 - 32 mmol/L03/17/2025 11:48 AM EDTS LABAnion Bvn3058 - 20 mmol/L 03/17/2025 11:48 AM EDTS VAHQixwvwc699(HH)65 - 99 mg/dL03/17/2025 11:48 AM EDTS DDXEXA59 - 25 mg/dL03/17/2025 11:48 AM EDTS LABCreatinine0.760.40 - 1.10 mg/dL03/17/2025 11:48 AM EDTS LYMpMIB86>=60 mL/min/1.73 m203/17/2025 11:48 AM EDTS LABComment:Estimated GFR was calculated using the 2020 CKD-EPI creatinine equation.BUN/Creatinine Ratio11.810.0 - 20.009 11:48 AM EDT ZIFLthmisf25.18.4 - 10.2 mg/dL03/17/2025 11:48 AM EDLE[facility] LABSpecimen (Source)Anatomical Location / LateralityCollection Method / VolumeCollection TimeReceived TimeBloodBLOOD SPECIMEN / UnknownVenipuncture / Kowakhf6703/17/2025 11:12 AM EDT03/17/2025 11:16 AM EDT Narrative LAB - 03/17/2025 11:[address] [facility] has implemented the eGFR calculation approach that does not have a coefficient for race that conforms to the NKF-ASN Task Force Recommendations. Authorizing ProviderResult TypeResult StatusSteven Marie GOULD BLOOD ORDERABLES Final ResultPerforming OrganizationAddressCity/State/ZIP CodePhone Number LAB [address] [place] [address] * (ABNORMAL) Hemoglobin A1c (01/06/2025 9:38 AM EDT)ComponentValueRef RangeTest MethodAnalysis TimePerformed AtPathologist SignatureHemoglobin A1C10.7(H)4.2 - 5.6 %01/06/2025 7:01 PM [facility] LABEstimated Average Gfipepr021(H)74 - 114 mg/dL01/06/2025 7:01 PM [facility] LABComment:Specimen (Source)Anatomical Location / LateralityCollection Method / VolumeCollection TimeReceived TimeBloodBLOOD SPECIMEN / UnknownVenipuncture / Qttahnw7601/06/2025 9:38 AM EDT01/06/2025 9:48 AM EDT Narrative [facility] - 01/06/2025 7:01 PM EDT Normal: 4.2% - 5.6% Increased risk for diabetes: ??5.7% - 6.4% Diabetes: >= 6.5% Pediatrics: ??No established reference range Estimated average glucose: ??74-114 mg/dL Authorizing ProviderResult TypeResult StatusTwyla GOULD BLOOD ORDERABLESFinal ResultPerforming OrganizationAddressCity/State/ZIP CodePhone Number [facility] [address] [place] [address] * High Risk HPV with Genotype 16,18 (08/26/2021 3:41 PM EST)ComponentValueRef RangeTest MethodAnalysis TimePerformed AtPathologist SignatureHPV 16Negative Zorklgqw23/05/2022 3:02 PM [facility] LABHPV 18Negative Bpkukutx05/05/2022 3:02 PM [facility] LABHPV, Other HR YojpjJmfvshqvIumxwkwu79/05/2022 3:02 PM [facility] Specimen (Source)Anatomical Location / LateralityCollection Method / Volume Collection TimeReceived TimePap, Liquid BasedENDOCERVICAL STRUCTURE / Unknown 08/26/2021 3:41 PM EST08/29/2021 10:20 AM EST [facility] - 08/31/2021 3:02 PM EST Assay performed using Mariah Kristen 4800 system utilizing Real-Time PCR to amplify target HPV DNA. This system specifically identifies HPV16 and HPV18 while concurrently detecting the other twelve high risk types (31,33,35,39,45,51,52,56,58,59,66,68). Authorizing ProviderResult TypeResult StatusCarolyn Alyse Chambers MDBODY FLUIDS AND STOOLS ORDERABLESFinal ResultPerforming OrganizationAddressCity/State/ZIP CodePhone Number [facility] [address] [place] [address] * Thinprep Pap Smear (08/26/2021 3:41 PM EST)ComponentValueRef RangeTest Method Analysis TimePerformed AtPathologist SignatureCase ReportGynecologic Cytology Report ? Case: [id number] ? Authorizing Provider: ??Shakila Doe MD ?? Collected: ? 08/26/2021 03:41 PM ? Ordering Location: ? [facility] [employer] [facility] - An ?Received: ?08/29/2021 10:20 AM ? [facility] ? First Screen: ?Lori Cao ? Rescreen: ?Carie Murillo ? Specimen: ?THINPREP PAP SMEAR, Cervix / Endocervix ? 09/03/2021 9:44 PM [facility] IMJZCBpdb68/08/2022 9:44 PM [facility] LABInterpretationNegative for intraepithelial lesion or qzabqpdeqe42/08/2022 9:44 PM [facility] LAB at [address] ESTSnorthern state hospitalimeNorthport Medical Centertisasc[facility] for evaluation; transformation zone/endocervical component ugsyirn0309/03/2021 9:44 PM [facility] LABEducational NoteThe Pap smear is a screening test for the detection of cervical cancer and its precursor lesions. ??False positive and false negative results can occur. The test should be performed at regular intervals, and positive results should be confirmed before definitive therapy. Additional testing methods may be helpful in detecting abnormalities or in clinical management. The specimen has been analyzed by the ThinPrep imaging system, an automated imaging and review system which assists the laboratory in evaluating cells on ThinPrep tests. ??Following automated imagingselected faulkner from every slide are reviewed by a cleaning validation consultant. Specimen processing and Primary Screening performed at: [facility] - [address] [place] [address] [id number] 9:44 PM EST [facility] LABHPV ResultsHPV 16 : Negative HPV 18 : Negative HPV, Other HR Types : Negative Assay performed using SyndicatePlusas 4800 system utilizing Real-Time PCR to amplify target HPV DNA. This system specifically identifies HPV16 and HPV18 while concurrently detecting the other twelve highrisk types (31,33,35,39,45,51,52,56,58,59,66,68). These HPV results have been electronically added to this report as an aid for patient management. HPV testing performed at: [facility] - [address] [place] [id number] 09/03/2021 9:44 PM [facility] RPYZchzftaphfiuZfb50/08/2022 9:44 PM [facility] LABSpecimen (Source)Anatomical Location / LateralityCollection Method / VolumeCollection TimeReceived TimePap, Liquid BasedENDOCERVICAL STRUCTURE / Dtmdptx9308/26/2021 3:41 PM EST08/29/2021 10:20 AM EST Narrative Authorizing ProviderResult TypeResult StatusCarolycatherine Doe MD PATHOLOGY/CYTOLOGY ORDERABLESFinal ResultPerforming OrganizationAddress City/State/ZIP CodePhone Number [facility] [address] [place] [phone] from Last 3 Months or Most Recently Relevant to Health Maintenance Insurance Advance Directives For more information, please contact: [phone] * Full Code (Latest Code Status on File) Date ActivatedDate InactivatedComments02/13/2025 7:10 PM02/17/2025 8:11 PM * Full Code - Unverified Date ActivatedDate InactivatedComments02/13/2025 3:39 PM02/13/2025 7:10 PM * Full Code Date ActivatedDate InactivatedComments01/06/2025 5:13 PM01/08/2025 4:43 PM * Full Code Date ActivatedDate FaweppuantmAucarmde64/15/2024 7:39 AM06/13/2024 7:22 PM * Full Code Date ActivatedDate KpzuysrqkunJkkjsknx79/6/2024 1:04 AM04/05/2024 7:58 PM Care Teams Team MemberRelationshipSpecialtyStart DateEnd Date Skye Jones OPERATIONS CONTROLLER [address] [place] [address] PCP - GeneralNurse Practitioner12/03/21
--- OUTSIDE RECORDS SUMMARY | 2025-06-22 17:37 | XMS_ITS | Patient Health Record ---
Author Organization [facility] [place] Address [address] [place] [address] Care Team Providers Care Specialty Food Products Supervisor Name Role Phone None, Unknown or Primary Care Provider Unavailab le Allergies Allergen (clinical drug ingredient) Drug/Non Drug Allergy documented on EMR Reaction Allergy Type Onset Date Status ketorolac toradol (uncoded) Unknown Allergy ActivemeperidineDemeroldropped BPDrug AllergyActiveNubainhivesDrug AllergyActive fentanylFentanylitching/rashDrug AllergyActivemorphineMorphineitching/rashDrug AllergyActivePenicillinHivesDrug AllergyActive Reason For Referral No Information Medications Medication SIG (Take, Route, Frequency, Duration) Notes Start Date End Date Status Cymbalta 60 MG 1 capsule Orally in the AM ActiveInsulin Aspart 100 UNIT/MLas directed InjectionActiveAbilifyActiveCymbalta 30 MG1 capsule Orally at nightActivetraZODone HCl 150 MG1 tablet at bedtime Orally Once a dayActiveProtonix 40 MG1 tablet Orally Once a dayActiveCeleBREX 100 MG1 capsule with food Orally Once a dayActiveCrestorActive Social History Tobacco Use: Social History Observation Description Date Details (start date - stop date) Never Smoker NA - NA Tobacco Use/Smoking Question Answer Notes Patient is a nonsmoker Problems Problem Type SNOMED Code ICD Code Onset Dates Problem Status W/U Status Risk Notes Problem Neurosis (328548160) Psychiatric problem (F99) Activeconfirmed Plan Of Treatment No Information Insurance Providers Payer Name Payer Address Payer Phone Subscriber Number Group Number Insured Name Patient Relationship to Insured Coverage Start Date Coverage End Date [employer] [place] [employer] [address] [place] [address] [id number] Govind Carlton - patient is the insured Medical (General) History Medical History History ICD Code Diabetes E11.9 High cholesterol E78.00 Substance abuse F19.10 Hypertension I10 GERD (gastroesophageal reflux disease) K 21.9 Surgical History Surgery Date(Month/Year) right leg fracture carpal tunnel bilateralright shoulder (bicep and rotator cuff)3 trigger release hysterectomy
--- OUTSIDE RECORDS SUMMARY | 2025-06-22 17:37 | XMS_ITS | Clinical Summary ---
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 Primary Care Pr ovider Allergies Active AllergyReactionsCriticalityNoted DateCommentsAspirinUnknown,OtherLow 04/23/2011 nosebleeds Pt states gives me nosebleeds nosebleeds Pt states gives me nosebleeds nosebleeds nosebleeds Pt states gives me nosebleeds Pt states gives me nosebleeds nosebleeds nosebleeds VzdhxpqjlllpSrvqw14/23/2013CiprofloxacinHives,OgitBoepba12/11/2020 Other reaction(s): Hives/Urticaria FentanylHives,Itching,Rash,JibwngqUbdp74/25/2017 Other reaction(s): Hives, Hives/Urticaria VupefzttiKluxrsu00/12/2024MelonHives,Vrvuyrqt91/01/2024Meperidine (Pf)Hives 10/19/2012MorphineHives,Rash,NcwqaUlopyb05/22/2016 Patient tolerates hydromorphone Other reaction(s): Hives, Hives/Urticaria, Unknown Reaction Patient tolerates hydromorphone Other reaction(s): Hives, Hives/Urticaria, Unknown Reaction NalbuphineHives,XiiivodFdbnmc44/25/2012 Other reaction(s): Hives, Hives/Urticaria PenicillinsHives,Swelling,MpnjtCmcn08/26/2011 Total body swelling- only injection, able to take oral amox Tolerates cefazolin Other reaction(s): Hives, Hives/Urticaria Tolerates cefazolin Other reaction(s): Hives, Hives/Urticaria Medications MedicationSigDispense QuantityRefillsLast FilledStart DateEnd DateStatus gabapentin (Neurontin) 300 mg capsule Take 2 capsules (600 mg) by mouth 3 times a day.Active DULoxetine (Cymbalta) [address] capsule Take 1 capsule (60 mg) by mouth 2 times a day. Do not crush or chew.Active traZODone (Desyrel) 300 mg tablet Take 1 tablet (300 mg) by mouth once daily at bedtime.5Active pantoprazole (ProtoNix) 40 mg EC tablet Take 1 tablet (40 mg) by mouth once daily in the morning. Take before meals. Do not crush, chew, orsplit.Active promethazine (Phenergan) 25 mg tablet Take 1 tablet (25 mg) by mouth every 6 hours if needed for nausea or vomiting. Active metoprolol tartrate (Lopressor) 50 mg tablet Take 1 tablet by mouth 2 times a day.Active tiZANidine (Zanaflex) 4 mg capsule Take 1 capsule (4 mg) by mouth 3 times a day.Active loratadine (Claritin) 10 mg tablet Take 1 tablet (10 mg) by mouth once daily.Active OLANZapine (ZyPREXA) 5 mg tablet Take 1 tablet (5 mg) by mouth 2 times a day.Active rosuvastatin (Crestor) 40 mg tablet Take 1 tablet (40 mg) by mouth once daily.Active hydrOXYzine pamoate (Vistaril) 50 mg capsule Take 1 capsule (50 mg) by mouth every 6 hours if needed for anxiety.Active insulin glargine (Lantus U-100 Insulin) 100 unit/mL injection Inject 40 Units under the skin once daily at bedtime. Take as directed per insulin instructions. Atbedtime.Active insulin lispro 100 unit/mL injection Inject 35 Units under the skin 3 times a day. Take as directed per insulin instructions. Take with meals.Active tirzepatide (Mounjaro) 7.5 mg/0.5 mL pen injector Inject 7.5 mg under the skin every 7 days. MondaysActive ARIPiprazole (Abilify) 20 mg tablet Take 1 tablet (20 mg) by mouth once daily.12/25/2024tive empagliflozin (Jardiance) 25 mg tablet Indications:Type 2 diabetes mellitus with hyperglycemia, without long-term current use of insulin (Multi)Take 1 tablet (25 mg) by mouth once daily. 30 tablet /6Active ondansetron ODT (Zofran-ODT) 4 mg disintegrating tablet Indications:Right flank painDissolve 1 tablet (4 mg) in the mouth every 8 hours if needed for nausea or vomiting for up to 7 days. 20 tablet tive acetaminophen (Tylenol) 500 mg tablet Indications:Right flank painTake 1 tablet (500 mg) by mouth every 6 hours if needed for mild pain (1 - 3) for up to 7 days. 28 tablet tive cyclobenzaprine (Flexeril) 10 mg tablet Indications:Flank painTake 1 tablet (10 mg) by mouth 2 times a day as needed for muscle spasms for up to 5 days. 10 tablet /Discontinued(Stop Taking at Discharge) metoclopramide (Reglan) 10 mg tablet Indications:Nausea and vomiting, unspecified vomiting typeTake 1 tablet (10 mg) by mouth every 6 hours if needed (Nausea vomiting) for up to 7 days. 15 tablet Discontinued(Stop Taking at Discharge) sulfamethoxazole-trimethoprim (Bactrim DS) 800-160 mg tablet Indications:Right flank pain,Acute cystitis without hematuriaTake 1 tablet by mouth 2 times a day for 7 days. 14 tablet /Discontinued(Stop Taking at Discharge) acetaminophen (Tylenol) 325 mg tablet Indications:Right flank painTake 2 tablets (650 mg) by mouth every 6 hours if needed for mild pain (1 - 3) for up to 10 days. 30 tablet /Discontinued(Stop Taking at Discharge) methocarbamol (Robaxin) 500 mg tablet Indications:Right flank painTake 2 tablets (1,000 mg) by mouth 4 times a day. 56 tablet /Discontinued(Stop Taking at Discharge) ARIPiprazole (Abilify) 20 mg tablet Take 1 tablet (20 mg) by mouth once daily.05/25/2025Discontinued(Stop Taking at Discharge) docusate sodium (Colace) 100 mg capsule Indications:Malrotation of cecum (Multi)Take 1 capsule (100 mg) by mouth 2 times a day for 14 days. 28 capsule 05/25/2025 1:36 PM EST/04/2025Expired polyethylene glycol (Glycolax, Miralax) 17 gram packet Indications:Malrotation of cecum (Multi)Take 17 g by mouth once daily for 14 days. 14 packet Expired sulfamethoxazole-trimethoprim (Bactrim DS) 800-160 mg tablet Indications:Type 2 diabetes mellitus with hyperglycemia, without long-term current use of insulin (Multi)Take 1 tablet by mouth 2 times a day for 2 days. 4 tablet 05/25/2025 1:36 PM EST/Expired oxyCODONE (Roxicodone) 5 mg immediate release tablet Indications:NephrolithiasisTake 1 tablet (5 mg) by mouth every 4 hours if needed for severe pain (7 - 10) for up to 5 days. 15 tablet 05/25/2025 1:36 PM EST/07/2024Expired cephalexin (Keflex) 500 mg capsule Indications:PyelonephritisTake 1 capsule (500 mg) by mouth 4 times a day for 10 days. 40 capsule /Expired oxyCODONE-acetaminophen (Percocet) 5-325 mg tablet Indications:PyelonephritisTake 1 tablet by mouth every 6 hours if needed for severe pain (7 - 10) for up to 2 days. 8 tablet /Expired Active Problems ProblemNoted DateDiagnosed DateMalrotation of cecum05/21/2025iliary calculus 12/12/2024hronic cumyjvzdcxi67/16/2025Type 2 diabetes ftalmuwd01/ Gastroesophageal reflux zwieaoc2512/12/2024HLD (hyperlipidemia)12/12/2024 Eytzrxjtgkx64/16/2025hronic pain12/12/20246826Hxtaplpmdngldyt46/24/2025 Overview (12/12/2024): April [address] CT scan [facility]. Small stone right upper pole on left [...] at some point to monitor stone. Acute xktzxqnwvauv65/30/2773Upeeftoumvaq90/10/2023epressive ozhmyxib69/01/2023 AMS (altered mental status)03/06/20231785Rqwumuicvp17/13/8357Krprryxonpe27/08/2022 Naeickclc53/06/2021 Encounters DateTypeDepartmentCare XyoqWtwjucavtow05/22/2025Results Follow-Up [facility] [address] [place] [address] Linda Rodriguez, PharmD Urine Irteajk6406/16/2025 5:41 PM EST - 06/16/2025 7:56 PM ESTEmergency [facility] [address] [place] [phone] Right flank pain (Primary Dx) Discharge Disposition: Home06/16/20259886Uxvlhl00/12/2025 5:31 PM EST - 06/09/2025 10:06 PM ESTEmergency [facility] [address] [place] [address] Saman Judd MD Pyelonephritis (Primary Dx) Discharge Disposition: Home06/09/20250950Jyxhoc52/23/2025 3:27 PM EST - 05/25/2025 12:20 PM ESTHospital Encounter [facility] [address] [place] [address] Antoni Dee MD Frank, Kevin M, MD Villatoro, MD Garfield Coreas Tahereh, MD Darzi, MD Yudelka Domingo, Monica Villeda, CATTLE FARM[employer]GROUNDS/MAINTENANCE SPECIALIST Malrotation of cecum (Multi) (Primary Dx); Pulmonary vascular congestion; Dyspnea, unspecified; Type 2 diabetes mellitus with hyperglycemia, without long-term current use of insulin (Multi); Nephrolithiasis Discharge Disposition: Home05/21/20256670Jydmey44/20/2025Orders Only [facility] [address] [place] [address] Wilmer Ayoub DO 05/14/2025 4:43 PM EST - 05/14/2025 11:42 PM ESTEmergency [facility] [address] [place] [address] Katalina Dawkins MD Right flank pain (Primary Dx); Acute cystitis without hematuria Discharge Disposition: Home05/14/20251192Rgzjum64/31/2025Results Follow-Up [facility] [address] [place] [phone] Elizabeth Mccoy, PharmD Urine Jwaiyto7304/25/2025 10:13 PM EDT - 04/26/2025 2:12 AM EDTEmergency [facility] [address] [place] [address] Wilmer Dooley MD Renal colic on right side (Primary Dx); Hemorrhagic cystitis; Pyelonephritis, acute Discharge Disposition: Home04/25/20259455Soqlmx31/10/2025 12:01 PM EDT - 04/07/2025 11:59 PM EDTHospital Encounter [facility] [address] [place] [address] Discharge Disposition: Home04/06/2025 8:48 PM EDT - 04/07/2025 12:16 AM EDT Emergency [facility] Emergency Room [address] [place] [address] Discharge Disposition: ED Left Without Being Seen04/06/20250477Xndkcs76/28/2025 Orders Only [facility] [address] [place] [address] Wilmer Ayoub, DO from Last 3 Months Social History Tobacco UseTypesPacks/DayYears UsedDateSmoking Tobacco: NeverPassive Smoke Exposure: NeverSmokeless Tobacco: Never Tobacco Cessation:Counseling Given: No Alcohol UseStandard Drinks/WeekCommentsDefer0 (1 standard drink = 0.6 oz pure alcohol)PHQ-2AnswerDate RecordedPatient Health Questionnaire-2 Cimyh92707/21/2024 Humiliation, Afraid, Rape, and Kick questionnaireAnswerDate RecordedWithin the last year, have you been afraid of your partner or ex-partner?No05/21/2025Within the last year, have you been humiliated or emotionally abused in other ways by your partner or ex-partner?No05/21/2025Within the last year, have you been kicked, hit, slapped, or otherwise physically hurt by your partner or ex-partner?No05/21/2025Within the last year, have you been raped or forced to have any kind of sexual activity by your partner or ex-partner?No05/21/2025 AUDIT-CAnswerDate RecordedQ1: How often do you have a drink containing alcohol? Never05/21/2025Q2: How many drinks containing alcohol do you have on a typical day when you are drinking?Patient does not drink05/21/2025Q3: How often do you have six or more drinks on one occasion?Never05/21/2025Overall Financial Resource Strain (CARDIA)AnswerDate RecordedHow hard is it for you to pay for the very basics like food, housing, medical care, and heating?Not hard at all 05/21/2025Hunger Vital SignAnswerDate RecordedWithin the past 12 months, you worried that your food would run out before you got the money to buymore.Never true05/21/2025Within the past 12 months, the food you bought just didn't last and you didn't have money to get more.Never true05/21/2025PRAPARE - TransportationAnswerDate RecordedIn the past 12 months, has lack of transportation kept you from medical appointments or from getting medications?No 05/21/2025In the past 12 months, has lack of transportation kept you from meetings, work, or from getting things needed for daily living?No05/21/2025 Housing Stability Vital SignAnswerDate RecordedIn the last 12 months, was there a time when you were not able to pay the mortgage or rent on time?No05/21/2025In the past 12 months, how many times have you moved where you were living?0 05/21/2025t any time in the past 12 months, were you homeless or living in a alf (including now)?No05/21/2025HC UtilitiesAnswerDate RecordedIn the past 12 months has the [employer], gas, oil, or water company threatened to shut off services in your home?No05/21/2025CommentsNoSex and Gender Information ValueDate RecordedSex Assigned at BirthNot on fileLegal MkhBjubvz54/26/2022 6:27 AM ESTGender IdentityNot on fileSexual OrientationNot on file Last Filed Vital Signs Vital SignReadingTime TakenCommentsBlood Ifagsfvi077/6406/16/2025 7:54 PM EST Pvoql18456/19/2025 7:54 PM LOIRtplgvckpxg36.3 ??C (97.3 ??F)06/16/2025 7:54 PM ESTRespiratory Ndoo897908/17/2024 7:54 PM ESTOxygen Kunqxbkbro43%06/16/2025 7:54 PM ESTInhaled Oxygen Concentration--Xanuij272 kg (260 lb)06/16/2025 5:35 PM EST Jbzpag181.2 cm (5' 7 )06/16/2025 5:35 PM ESTBody Mass Index40.7206/16/2025 5:35 PM EST Plan of Treatment Health MaintenanceDue DateLast DoneCommentsCT Ghmmzejvfyvm1975Colonoscopy 1975Colorectal Cancer Mwynzgpho1975Diabetes: Urine Protein Screening 1975FIT-DNA (Cologuard)1975FIT1975HIV Ivqgnzpzx1975Lipid Panel1975 1984Hjzkksswztlvd1975MMR Vaccines (1 of 1 - Standard series) 1976Diabetes: Retinopathy Pwbiramkj25/28/1985Hepatitis C Screening 1993Hepatitis A Vaccines (1 of 2 - Risk 2-dose series)1994Hepatitis B Vaccines (1 of 3 - 19+ 3-dose series)1994HPV/Jjplwg6705/26/1996Mammogram 2015TSH Level05/13/323587/Yearly Adult Obrbrfky53/ Cervical Cancer Lgwvlbmhb89/28/2025Pap Smear5008/26/2021OVID-19 Vaccine (1 - 2024- season)2025Influenza Vaccine (#1)/, 04/23/2018Zoster Vaccines (1 of 2)2025Diabetes: Hemoglobin A1C08/21/2025 05/21/2025, 02/25/2025, 01/06/2025, Additional history existsDTaP/Tdap/Td Vaccines (2 - Td or Tdap)/3Pneumococcal VaccineCompleted 12/01/2022HIB VaccinesAged OutNo longer eligible based on patient's age to complete this topicHPV VaccinesAged OutNo longer eligible based on patient's age to complete this topicIPV VaccinesAged OutNo longer eligible based on patient's age to complete this topicMeningococcal VaccineAged OutNo longer eligible based on patient's age to complete this topicRotavirus VaccinesAged OutNo longer eligible based on patient's age to complete this topic Goals GoalPatient Goal TypeAssociated ProblemsRecent ProgressPatient-Stated?Author MyChart Post Discharge Milk Pickup Driver Goal Template Care PlanMyChart Post Discharge Milk Pickup Driver Problem TemplateNoMychart, Generic Procedures Procedure NamePriorityDate/TimeAssociated IzuunmgccFyelmehvWLJNWRDXGKT61/19/2025 6:35 PM EST COMPREHENSIVE METABOLIC NHBSRCIHY41/19/2025 6:35 PM EST CBC WITH AUTO YCGULGABWGWFAMEI92/19/2025 6:35 PM EST URINALYSIS MICROSCOPIC UFFDBVGX90/19/2025 6:15 PM EST EXTRA URINE HANCOCK OCIZZVLL34/19/2025 6:15 PM ESTURINALYSIS WITH REFLEX MICROSCOPIC AND YFZPCELGKPG03/19/2025 6:15 PM EST URINALYSIS WITH REFLEX MICROSCOPIC AND QTNGQKHZGDI47/19/2025 6:15 PM EST URINE YAVWAYCFUJG66/19/2025 6:[address] ABDOMEN PELVIS WO IV OZOIARYMDWYU44/19/2025 5:57 PM EST URINALYSIS MICROSCOPIC TVKZYZLU38/12/2025 9:10 PM EST URINALYSIS WITH REFLEX MICROSCOPIC AND DEIEOFDZVYX47/12/2025 9:10 PM EST URINE JHMIUZYVMEI10/12/2025 9:10 PM EST CIZCZYIAzzrp46/12/2025 9:05 PM EST POCT JZMPARLZisbaea62/12/2025 8:46 PM EST JMWZSEGXBPS16/12/2025 6:20 PM EST JVTMNEXDRP29/12/2025 6:20 PM EST DFUSWJRBBAKHL72/12/2025 6:20 PM EST COMPREHENSIVE METABOLIC EHPXNNRML47/12/2025 6:20 PM EST CBC WITH AUTO NIBFGCJECYIOMDIY08/12/2025 6:[address] ABDOMEN PELVIS WO IV UFMDZICKUIOD35/12/2025 6:01 PM EST POCT NRUBPYYVscvtzh17/27/2025 11:01 AM EST CBC WITH AUTO DIFFERENTIALPending Dnziqgvla46/27/2025 6:59 AM EST BASIC METABOLIC PANELPending Huxsulttp17/27/2025 6:58 AM EST POCT NINHWBWMayypxr42/27/2025 6:34 AM EST POCT PIKXBIIBetbvqm39/26/2025 10:21 PM EST POCT PSWPQXNJohryhz11/26/2025 7:27 PM EST POCT UOQMZHQOjqnkll00/26/2025 5:47 PM EST TRANSTHORACIC ECHO (TTE) COMPLETE WITH CONTRASTPriority Discharge or Observation 05/24/2025 3:00 PM EST Pulmonary vascular congestion Dyspnea, unspecified POCT TMLEXYHBqmvrip87/26/2025 10:37 AM EST SST HCHErukqci40/26/2025 10:36 AM EST EXTRA EDDLTObgxpvc38/26/2025 10:36 AM EST CBC WITH AUTO DIFFERENTIALPending Wastcldaj78/26/2025 10:36 AM EST BASIC METABOLIC PANELPending Qialfcgec69/26/2025 10:36 AM EST B-TYPE NATRIURETIC PEPTIDEPending Umifzbdoc15/26/2025 10:36 AM EST MAGNESIUMPending Qnisvpprl46/26/2025 6:58 AM EST POCT ACUYHFGRzosbfa23/26/2025 6:37 AM EST POCT RMTRPWJXlxagch72/25/2025 7:36 PM EST XR CHEST 1 APJNAajzaan49/25/2025 4:00 PM EST POCT CUHJNLJRdvwzdx06/25/2025 3:57 PM EST POCT PDVBQWHPygiyrl96/25/2025 10:51 AM EST XR ABDOMEN 1 LMLBVEUR90/25/2025 10:23 AM EST POCT QFZWTLIPbuzqzz53/25/2025 6:35 AM EST BASIC METABOLIC VCAWWSsnqige72/25/2025 4:13 AM EST DXYBnvrwzw37/25/2025 4:13 AM EST ONSHILECTNshklhe38/25/2025 4:13 AM EST POCT JAOJKRFXorumdk24/24/2025 7:45 PM EST POCT DFERIESVvhxsih23/24/2025 4:51 PM EST XR ABDOMEN 1 TMBVKhashfb78/24/2025 11:42 AM EST POCT JYDKJBUJxdjxri19/24/2025 11:23 AM EST POCT DPAVVUAFcblrbw93/24/2025 6:37 AM EST XHNOAEIEjisvda50/24/2025 6:07 AM EST CUGHDDUAELqgwjug67/24/2025 6:07 AM EST CBC WITH AUTO XFXNKNETHLRKEpfqxgh94/24/2025 6:07 AM EST COMPREHENSIVE METABOLIC FEADQHoocyds93/24/2025 6:07 AM EST SST TWSIedqchz24/24/2025 6:02 AM EST EXTRA VXDLQJwjiwrj35/24/2025 6:02 AM EST POCT HLMTMJKLemvxcu77/23/2025 9:[address] ABDOMEN PELVIS WO IV KZOJTHGTVQCX57/23/2025 5:06 PM EST HEMOGLOBIN I4ZBnywctv08/23/2025 4:15 PM EST NZMHDUFO46/23/2025 4:15 PM EST PROTIME-DBDNCKS6305/21/2025 4:15 PM EST OKTEGTKCUDKXG39/23/2025 4:15 PM EST COMPREHENSIVE METABOLIC AWHODMDJU96/23/2025 4:15 PM EST CBC WITH AUTO DBXVNZVMHDAIGHPZ77/23/2025 4:15 PM EST URINALYSIS MICROSCOPIC JRZEIKRI09/23/2025 4:10 PM EST EXTRA URINE HANCOCK EMVDBFIO83/23/2025 4:10 PM ESTURINALYSIS WITH REFLEX MICROSCOPIC AND QTIEYGSRQSN21/23/2025 4:10 PM EST URINALYSIS WITH REFLEX MICROSCOPIC AND GYHFMMAJAOE74/23/2025 4:10 PM EST URINE BOHFSLFEWDR88/23/2025 4:10 PM EST US RENAL YXFWSRQL60/20/2025 9:32 PM EST [facility] CBC W/ AUTO URHCIvrebtu30/20/2025 7:44 PM EST [facility] EXTRA CHNEFfwrtya35/20/2025 7:44 PM EST [facility] WMBXTeldfuq16/20/2025 7:44 PM EST [facility] BBWWerpgyb52/20/2025 7:44 PM EST [facility] C FEHEKPfcgzwv55/20/2025 7:23 PM EST [facility] UA WITH CULT XARLUfylmtb17/20/2025 7:23 PM EST [facility] UA WITH CULT RFLX TABapsczj00/20/2025 7:23 PM EST URINALYSIS MICROSCOPIC DPHRJDDO93/16/2025 7:43 PM EST EXTRA URINE HANCOCK IDCVDRSL03/16/2025 7:43 PM ESTURINALYSIS WITH REFLEX MICROSCOPIC AND BSTRQSRRFYO36/16/2025 7:43 PM EST URINALYSIS WITH REFLEX MICROSCOPIC AND YLJKWAAMDXX92/16/2025 7:43 PM EST URINE KGXJFWYNBPA48/16/2025 7:43 PM EST US RENAL HPOBKWKCILJK29/16/2025 6:45 PM EST TROPONIN I, HIGH QHYQCFYKZXRKXNL68/16/2025 6:03 PM EST PMEXCURCUZY58/16/2025 6:03 PM EST RWZBDQFVZP07/16/2025 6:03 PM EST COMPREHENSIVE METABOLIC UIXZBIXWG10/16/2025 6:03 PM EST IXNRWFERUIQZN80/16/2025 6:03 PM EST CBC WITH AUTO UVQFLJDEQJSQEZGL59/16/2025 6:03 PM EST ECG 12-TCBGTCWS03/16/2025 5:42 PM EST ECG 12-RMFAHMPM89/29/2025 12:30 AM EDT BLOOD PQXPWAWKUER89/29/2025 12:14 AM EDT GEJHNPRNNIW96/29/2025 12:03 AM EDT COMPREHENSIVE METABOLIC OPWNLXMVE98/29/2025 12:03 AM EDT CBC WITH AUTO JZOFMTUMEWILBSZF25/29/2025 12:03 AM EDT PFDFGHGOQIZGL84/29/2025 12:03 AM EDT BLOOD HIGANRHQKLK88/29/2025 12:03 AM EDT PULSE OXIMETRY, XKMXGAQZETDDCB17/28/2025 11:48 PM EDTCT ABDOMEN PELVIS WO IV KPJLKAZYOGWX08/28/2025 11:19 PM EDT URINALYSIS MICROSCOPIC FDPRSFBW21/28/2025 10:52 PM EDT EXTRA URINE HANCOCK JYYJSIXM75/28/2025 10:52 PM EDTURINALYSIS WITH REFLEX MICROSCOPIC AND QRPVXZHJUKQ20/28/2025 10:52 PM EDT URINALYSIS WITH REFLEX MICROSCOPIC AND HIWPKMBTNVU71/28/2025 10:52 PM EDT URINE HMILHMVSWXK05/28/2025 10:52 PM EDT ECG 12-EQTGIGIB14/10/2025 12:01 PM EDT [facility] EXTRA ZIBGFpwiwrf58/28/2025 3:18 AM EDT [facility] HQAKKcqetif84/28/2025 3:18 AM EDT [facility] LIPASE YPOQQFmehmyj63/28/2025 3:18 AM EDT [facility] HEP FUNC XQFMSLapgixh73/28/2025 3:18 AM EDT NON-[facility] NIITlhtbor80/28/2025 3:18 AM EDT [facility] CBC W/ AUTO ELWYShqduzq64/28/2025 3:18 AM EDT NON-[facility] C DDKCAYtegsfv36/28/2025 1:41 AM EDT NON[facility] UA WITH CULT QXXDPalgvin41/28/2025 1:41 AM EDT NON-[facility] UA WITH CULT RFLX JDOimetgc54/28/2025 1:41 AM EDT TSH WITH REFLEX TO FREE T4 IF BGOFCOFWXognfak89/13/2020 5:54 AM EDT from Last 3 Months or Most Recently Relevant to Health Maintenance Results * CBC and Auto Differential (06/16/2025 6:35 PM EST) Only the most recent of8 resultswithin the time period is included. ComponentValueRef RangeTest MethodAnalysis TimePerformed AtPathologist Signature WBC6.24.4 - 11.3 x10*3/uL LAB HEMATOLOGY METHOD 06/16/2025 6:51 PM [facility] LABnRBC0.00.0 - 0.0 /100 WBCs LAB HEMATOLOGY METHOD 06/16/2025 6:51 PM [facility] LABRBC4.454.00 - 5.20 x10*6/uL LAB HEMATOLOGY METHOD 06/16/2025 6:51 PM [facility] APCGhoehxgjjz97.212.0 - 16.0 g/dL LAB HEMATOLOGY METHOD 06/16/2025 6:51 PM [facility] XFQZnkfbyeucy32.936.0 - 46.0 % LAB HEMATOLOGY METHOD 06/16/2025 6:51 PM [facility] DCXMPX7730 - 100 fL LAB HEMATOLOGY METHOD 06/16/2025 6:51 PM [facility] GOKXWY50.726.0 - 34.0 pg LAB HEMATOLOGY METHOD 06/16/2025 6:51 PM [facility] WBBCVRJ23.932.0 - 36.0 g/dL LAB HEMATOLOGY METHOD 06/16/2025 6:51 PM [facility] OHHRUY08.311.5 - 14.5 % LAB HEMATOLOGY METHOD 06/16/2025 6:51 PM [facility] HKWGvihlduek042421 - 450 x10*3/uL LAB HEMATOLOGY METHOD 06/16/2025 6:51 PM [facility] LABNeutrophils %58.740.0 - 80.0 % LAB HEMATOLOGY METHOD 06/16/2025 6:51 PM [facility] LABImmature Granulocytes %, Automated0.20.0 - 0.9 % LAB HEMATOLOGY METHOD 06/16/2025 6:51 PM [facility] LABComment:Immature Granulocyte Count (IG) includes promyelocytes, myelocytes and metamyelocytes but does not i nclude bands. Percent differential counts (%) should be interpreted in the context of the absolute cell counts (cells/UL).Lymphocytes %30.613.0 - 44.0 % LAB HEMATOLOGY METHOD 06/16/2025 6:51 PM [facility] LABMonocytes %7.42.0 - 10.0 % LAB HEMATOLOGY METHOD 06/16/2025 6:51 PM [facility] LABEosinophils %2.60.0 - 6.0 % LAB HEMATOLOGY METHOD 06/16/2025 6:51 PM [facility] LABBasophils %0.50.0 - 2.0 % LAB HEMATOLOGY METHOD 06/16/2025 6:51 PM [facility] LABNeutrophils Absolute3.651.20 - 7.70 x10*3/uL LAB HEMATOLOGY METHOD 06/16/2025 6:51 PM [facility] LABComment:Percent differential counts (%) should be interpreted in the context of the absolute cell counts (ce lls/uL).Immature Granulocytes Absolute, Automated0.010.00 - 0.70 x10*3/uL LAB HEMATOLOGY METHOD 06/16/2025 6:51 PM [facility] LABLymphocytes Absolute1.901.20 - 4.80 x10*3/uL LAB HEMATOLOGY METHOD 06/16/2025 6:51 PM [facility] LABMonocytes Absolute0.460.10 - 1.00 x10*3/uL LAB HEMATOLOGY METHOD 06/16/2025 6:51 PM [facility] LABEosinophils Absolute0.160.00 - 0.70 x10*3/uL LAB HEMATOLOGY METHOD 06/16/2025 6:51 PM [facility] LABBasophils Absolute0.030.00 - 0.10 x10*3/uL LAB HEMATOLOGY METHOD 06/16/2025 6:51 PM [facility] LABSpecimen (Source)Anatomical Location / LateralityCollection Method / VolumeCollection TimeReceived TimeBlood Venous blood specimen / UnknownVenipuncture / Fokitxt3606/16/2025 6:35 PM EST 06/16/2025 6:47 PM EST Narrative Authorizing ProviderResult TypeResult StatusNovj HERNDON BLOOD ORDERABLESFinal ResultPerforming OrganizationAddressCity/State/ZIP CodePhone Number [facility] [address] [place] [phone] * Lactate (06/16/2025 6:35 PM EST) Only the most recent of6 resultswithin the time period is included. ComponentValueRef RangeTest MethodAnalysis TimePerformed AtPathologist Signature Lactate0.90.4 - 2.0 mmol/L LAB CHEMISTRY METHOD 06/16/2025 7:07 PM [facility] LABSpecimen (Source)Anatomical Location / LateralityCollection Method / VolumeCollection TimeReceived TimeBlood Venous blood specimen / UnknownVenipuncture / Audmorp7506/16/2025 6:35 PM EST 06/16/2025 6:47 PM EST Narrative [facility] - 06/16/2025 7:07 PM EST Venipuncture immediately after or during the administration of Metamizole may lead to falsely low results. Testing should be performed immediately prior to Metamizole dosing. Authorizing ProviderResult TypeResult StatusGrey HERNDON BLOOD ORDERABLESFinal ResultPerforming OrganizationAddressCity/State/ZIP CodePhone Number [facility] [address] [place] [address] * (ABNORMAL) Comprehensive metabolic panel (06/16/2025 6:35 PM EST) Only the most recent of6 resultswithin the time period is included. ComponentValueRef RangeTest MethodAnalysis TimePerformed AtPathologist Signature Zpmobge363(H)74 - 99 mg/dL LAB CHEMISTRY METHOD 06/16/2025 7:08 PM [facility] QDJKouxft255262 - 145 mmol/L LAB CHEMISTRY METHOD 06/16/2025 7:08 PM [facility] LABPotassium3.63.5 - 5.3 mmol/L LAB CHEMISTRY METHOD 06/16/2025 7:08 PM [facility] IHBSjvujuwf86135 - 107 mmol/L LAB CHEMISTRY METHOD 06/16/2025 7:08 PM [facility] ZEJQkdyhzyzsub1830 - 32 mmol/L LAB CHEMISTRY METHOD 06/16/2025 7:08 PM [facility] LABComment:Bicarbonate results may be falsely elevated when Lactate Dehydrogenase (LDH) concentrations exceed 2,000 U/L due to a temporary reagent manufacturing issue. If significantly elevated LDH levels are suspected, interpret bicarbonate results with caution, correlate with the patient???s clinical status, and consider confirming CO2 values using a blood gas analyzer.Anion Mjn8876 - 20 mmol/L LAB CHEMISTRY METHOD 06/16/2025 7:08 PM [facility] LABUrea Wzyulhyz48 - 23 mg/dL LAB CHEMISTRY METHOD 06/16/2025 7:08 PM [facility] LABCreatinine0.570.50 - 1.05 mg/dL LAB CHEMISTRY METHOD 06/16/2025 7:08 PM [facility] LABeGFR>90>60 mL/min/1.73m*2 LAB CHEMISTRY METHOD 06/16/2025 7:08 PM [facility] LABComment: Calculations of estimated GFR are performed using the 2020 CKD-EPI Study Refit equation without therace variable for the IDMS-Traceable creatinine methods. https://jasn.asnjournals.org/content//ASN.1492562527 Calcium9.68.6 - 10.3 mg/dL LAB CHEMISTRY METHOD 06/16/2025 7:08 PM [facility] LABAlbumin4.33.4 - 5.0 g/dL LAB CHEMISTRY METHOD 06/16/2025 7:08 PM [facility] LABAlkaline Bkpehhdajik0063 - 110 U/L LAB CHEMISTRY METHOD 06/16/2025 7:08 PM [facility] LABTotal Protein7.36.4 - 8.2 g/dL LAB CHEMISTRY METHOD 06/16/2025 7:08 PM [facility] XHXWWJ618 - 39 U/L LAB CHEMISTRY METHOD 06/16/2025 7:08 PM [facility] LABBilirubin, Total0.40.0 - 1.2 mg/dL LAB CHEMISTRY METHOD 06/16/2025 7:08 PM [facility] PWSVGZ254 - 45 U/L LAB CHEMISTRY METHOD 06/16/2025 7:08 PM [facility] LABComment:Patients treated with Sulfasalazine may generate falsely decreased results for ALT.Specimen (Source) Anatomical Location / LateralityCollection Method / VolumeCollection Time Received TimeBloodVenous blood specimen / UnknownVenipuncture / Unknown 06/16/2025 6:35 PM EST06/16/2025 6:47 PM EST Narrative Authorizing ProviderResult TypeResult StatusNovj HERNDON BLOOD ORDERABLESFinal ResultPerforming OrganizationAddressCity/State/ZIP CodePhone Number [facility] [address] [place] [address] * Extra Urine [place] Tube (06/16/2025 6:15 PM EST) Only the most recent of4 resultswithin the time period is included. ComponentValueRef RangeTest MethodAnalysis TimePerformed AtPathologist Signature Extra Tube06/19/2025 8:35 AM [facility] LABSpecimen (Source) Anatomical Location / LateralityCollection Method / VolumeCollection Time Received TimeUrineUrine specimen / Uvkozda4806/16/2025 6:15 PM EST06/16/2025 6:19 PM EST Narrative Authorizing ProviderResult TypeResult StatusGrey FRANK-BANDAR URINE ORDERABLESFinal ResultPerforming OrganizationAddressCity/State/ZIP CodePhone Number [facility] [address] [place] [address] * (ABNORMAL) Microscopic Only, Urine (06/16/2025 6:15 PM EST) Only the most recent of5 resultswithin the time period is included. ComponentValueRef RangeTest MethodAnalysis TimePerformed AtPathologist Signature WBC, Urine1-51-5, NONE /HPF06/16/2025 6:44 PM [facility] LABRBC, Urine>20(A)NONE, 1-2, 3-5 /HPF06/16/2025 6:44 PM [facility] LAB Squamous Epithelial Cells, Fhixa10-82 (FEW)Reference range not established. /HPF 06/16/2025 6:44 PM [facility] LABBacteria, Urine1+(A)NONE SEEN /HPF06/16/2025 6:44 PM [facility] LABSpecimen (Source)Anatomical Location / LateralityCollection Method / VolumeCollection TimeReceived TimeUrine Urine specimen / Forfulu8606/16/2025 6:15 PM EST06/16/2025 6:19 PM EST Narrative Authorizing ProviderResult TypeResult Jonathon HERNDON URINE ORDERABLESFinal ResultPerforming OrganizationAddressCity/State/ZIP CodePhone Number [facility] [address] [place] [address] * (ABNORMAL) Urinalysis with Reflex Culture (06/16/2025 6:15 PM EST) Only the most recent of5 resultswithin the time period is included. ComponentValueRef RangeTest MethodAnalysis TimePerformed AtPathologist Signature Color, UrineLight-Madison(N)Light-Yellow, Yellow, Dark-Wahlvh2306/16/2025 6:53 PM [facility] LABAppearance, UrineTurbid(N)Clear06/16/2025 6:53 PM [facility] LABSpecific [place], Urine1.0151.005 - 1.035 LAB URINALYSIS - AUTOMATED METHOD 06/16/2025 6:53 PM [facility] LABpH, Urine7.05.0, 5.5, 6.0, 6.5, 7.0, 7.5, 8. 6:53 PM [facility] LABProtein, Urine NEGATIVENEGATIVE, 10 (TRACE), 20 (TRACE) mg/dL06/16/2025 6:53 PM [facility] LABGlucose, UrineOVER (4+)(A)Normal mg/dL06/16/2025 6:53 PM [facility] LABBlood, UrineOVER (3+)(A)NEGATIVE mg/dL06/16/2025 6:53 PM [facility] LABKetones, UrineNEGATIVENEGATIVE mg/dL06/16/2025 6:53 PM [facility] LABBilirubin, UrineNEGATIVENEGATIVE mg/dL 06/16/2025 6:53 PM [facility] LABUrobilinogen, UrineNormalNormal mg/dL06/16/2025 6:53 PM [facility] LABNitrite, UrineNEGATIVE AMKLXIPG65/19/2025 6:53 PM [facility] LABLeukocyte Esterase, Urine 250 Matthew/uL(A)OGBUALIN82/19/2025 6:53 PM [facility] LABSpecimen (Source)Anatomical Location / LateralityCollection Method / VolumeCollection TimeReceived TimeUrineUrine specimen / Nupfnzo1806/16/2025 6:15 PM EST06/16/2025 6:19 PM EST [facility] - 06/16/2025 6:53 PM EST OVER is reported when the result is greater than the clinically reportable range. Authorizing ProviderResult TypeResult StatusNovj HERNDON URINE ORDERABLESFinal ResultPerforming OrganizationAddressCity/State/ZIP CodePhone Number [facility] [address] [place] [address] * (ABNORMAL) Urine Culture (06/16/2025 6:15 PM EST) Only the most recent of5 resultswithin the time period is included. ComponentValueRef RangeTest MethodAnalysis TimePerformed AtPathologist Signature Urine CultureGrowth indicates contamination with Gram positive dianna. Repeat culture if clinically indicated.06/18/2025 12:49 PM [facility] LABUrine Culture <=10,000 CFU/mL Streptococcus agalactiae (Group B Streptococcus)(A) MICROSCAN 06/18/2025 12:49 PM [facility] LABComment: Streptococcus agalactiae (Group B Streptococcus, GBS) may be significant in individuals. Recovery from non- individuals likely represents an insignificant finding. Routine GBS screening should be ordered using test ???Group B Streptococcus (GBS) Screen, Culture?? ([id number]). Specimen (Source)Anatomical Location / LateralityCollection Method / Volume Collection TimeReceived TimeUrineUrine specimen / Wezafeg1906/16/2025 6:15 PM EST 06/16/2025 6:52 PM EST Narrative [facility] - 06/18/2025 12:49 PM EST Streptococcus agalactiae (Group B Streptococcus) is universally susceptible to beta-lactam antibiotics and vancomycin. Routine susceptibility testing not performed. For penicillin allergic patients, please contact the laboratory within 5 days of collection at to request susceptibility testing. Authorizing ProviderResult TypeResult StatusGrey HERNDON MICROBIOLOGY - GENERAL ORDERABLESFinal ResultPerforming OrganizationAddressCity/State/ZIP CodePhone Number [facility] [id number] [address] * CT abdomen pelvis wo IV contrast (06/16/2025 5:57 PM EST) Only the most recent of4 resultswithin the time period is included. Anatomical RegionLateralityModalityAbdominal, BodyComputed TomographySpecimen (Source)Anatomical Location / LateralityCollection Method / VolumeCollection TimeReceived Time06/16/2025 6:22 PM EST06/16/2025 6:22 PM EST Impressions 06/16/2025 6:21 PM EST Punctate nonobstructing bilateral renal stones. No obstructive uropathy. ?? No other acute findings seen abdomen or pelvis. ? MACRO: None. ?? Signed by: Ryan Ortiz 06/16/2025 6:21 PM Dictation workstation: ?? [id number] Narrative 06/16/2025 6:21 PM EST Interpreted By: Ryan Ortiz, STUDY: CT ABDOMEN PELVIS WO IV CONTRAST; ??06/16/2025 5:57 pm ?? INDICATION: Signs/Symptoms:right flank pain. ?? COMPARISON: None. ?? ACCESSION NUMBER(S): [id number] ?? ORDERING CLINICIAN: GREY COON ?? TECHNIQUE: [...] Signs/Symptoms:right flank pain. COMPARISON: None. ACCESSION NUMBER(S): [id number] ORDERING CLINICIAN: GREY COON TECHNIQUE: Contiguous axial [...] Ryan Ortiz 06/16/2025 6:21 PM Dictation workstation: [id number] Authorizing ProviderResult TypeResult StatusGrey ESTEVESCIMJosé CT PROCEDURES Final Result * (ABNORMAL) POCT GLUCOSE (06/09/2025 8:46 PM EST)ComponentValueRef RangeTest MethodAnalysis TimePerformed AtPathologist SignaturePOCT Kptkzmw73(L)74 - 99 mg/dL06/09/2025 8:48 PM [facility] LABSpecimen (Source) Anatomical Location / LateralityCollection Method / VolumeCollection Time Received TimeBloodCapillary blood specimen / Hkjaubl9406/09/2025 8:46 PM EST 06/09/2025 8:48 PM EST Narrative Authorizing ProviderResult TypeResult StatusBRYANNA Del Toro POINT OF CARE TEST DOCKED DEVICE UNSOLICITED RESULTSFinal ResultPerforming Organization AddressCity/State/ZIP CodePhone Number [facility] [address] [place] [phone] * Magnesium (06/09/2025 6:20 PM EST) Only the most recent of7 resultswithin the time period is included. ComponentValueRef RangeTest MethodAnalysis TimePerformed AtPathologist Signature Magnesium1.981.60 - 2.40 mg/dL LAB CHEMISTRY METHOD 06/09/2025 6:47 PM [facility] LABSpecimen (Source)Anatomical Location / LateralityCollection Method / VolumeCollection TimeReceived TimeBlood Venous blood specimen / UnknownVenipuncture / Sicjpky6306/09/2025 6:20 PM EST 06/09/2025 6:26 PM EST Narrative Authorizing ProviderResult TypeResult StatusChamp ESTEVESCLAB BLOOD ORDERABLESFinal ResultPerforming OrganizationAddressCity/State/ZIP CodePhone Number [facility] [address] [place] [phone] * Lipase (06/09/2025 6:20 PM EST) Only the most recent of2 resultswithin the time period is included. ComponentValueRef RangeTest MethodAnalysis TimePerformed AtPathologist Signature Hsydfw984 - 82 U/L LAB CHEMISTRY METHOD 06/09/2025 6:47 PM [facility] LABSpecimen (Source)Anatomical Location / LateralityCollection Method / VolumeCollection TimeReceived TimeBlood Venous blood specimen / UnknownVenipuncture / Vmebocd3206/09/2025 6:20 PM EST 06/09/2025 6:26 PM EST Narrative [facility] - 06/09/2025 6:47 PM EST Venipuncture immediately after or during the administration of Metamizole may lead to falsely low results. Testing should be performed immediately prior to Metamizole dosing. Authorizing ProviderResult TypeResult StatusChamp Hammond PA-CLAB BLOOD ORDERABLESFinal ResultPerforming OrganizationAddressCity/State/ZIP CodePhone Number [facility] [address] [place] [address] * (ABNORMAL) POCT GLUCOSE (05/25/2025 11:01 AM EST)ComponentValueRef RangeTest MethodAnalysis TimePerformed AtPathologist SignaturePOCT Gmoysfl189(H)74 - 99 mg/dL05/25/2025 11:03 AM [facility] LABSpecimen (Source) Anatomical Location / LateralityCollection Method / VolumeCollection Time Received TimeBloodCapillary blood specimen / Tmemsvu1105/25/2025 11:01 AM EST 05/25/2025 11:03 AM EST Narrative Authorizing ProviderResult TypeResult StatusElisabeth GOUDL POINT OF CARE TEST DOCKED DEVICE UNSOLICITED RESULTSFinal ResultPerforming OrganizationAddress City/State/ZIP CodePhone Number [facility] [address] [place] [address] * (ABNORMAL) Basic Metabolic Panel (05/25/2025 6:58 AM EST) Only the most recent of3 resultswithin the time period is included. ComponentValueRef RangeTest MethodAnalysis TimePerformed AtPathologist Signature Tevbqwh670(H)74 - 99 mg/dL LAB CHEMISTRY METHOD 05/25/2025 7:42 AM [facility] ZINJderwj184834 - 145 mmol/L LAB CHEMISTRY METHOD 05/25/2025 7:42 AM [facility] LABPotassium3.93.5 - 5.3 mmol/L LAB CHEMISTRY METHOD 05/25/2025 7:42 AM [facility] FUQBozrzvwv8286 - 107 mmol/L LAB CHEMISTRY METHOD 05/25/2025 7:42 AM [facility] FMTArwigebijyk6234 - 32 mmol/L LAB CHEMISTRY METHOD 05/25/2025 7:42 AM [facility] LABComment:Bicarbonate results may be falsely elevated when Lactate Dehydrogenase (LDH) concentrations exceed 2,000 U/L due to a temporary reagent manufacturing issue. If significantly elevated LDH levels are suspected, interpret bicarbonate results with caution, correlate with the patient???s clinical status, and consider confirming CO2 values using a blood gas analyzer.Anion Vgf5762 - 20 mmol/L LAB CHEMISTRY METHOD 05/25/2025 7:42 AM [facility] LABUrea Ngiucjbm344 - 23 mg/dL LAB CHEMISTRY METHOD 05/25/2025 7:42 AM [facility] LABCreatinine0.640.50 - 1.05 mg/dL LAB CHEMISTRY METHOD 05/25/2025 7:42 AM [facility] LABeGFR>90>60 mL/min/1.73m*2 LAB CHEMISTRY METHOD 05/25/2025 7:42 AM [facility] LABComment: Calculations of estimated GFR are performed using the 2020 CKD-EPI Study Refit equation without therace variable for the IDMS-Traceable creatinine methods. https://jasn.asnjournals.org/content///ASN.0476439711 Calcium9.58.6 - 10.3 mg/dL LAB CHEMISTRY METHOD 05/25/2025 7:42 AM [facility] LABSpecimen (Source)Anatomical Location / LateralityCollection Method / VolumeCollection TimeReceived TimeBlood Venous blood specimen / UnknownVenipuncture / Remviij5405/25/2025 6:58 AM EST 05/25/2025 7:10 AM EST Narrative Authorizing ProviderResult TypeResult StatusOliver Louise GOULD BLOOD ORDERABLES Final ResultPerforming OrganizationAddressCity/State/ZIP CodePhone Number [facility] [address] [place] [address] * (ABNORMAL) POCT GLUCOSE (05/25/2025 6:34 AM EST)ComponentValueRef RangeTest MethodAnalysis TimePerformed AtPathologist SignaturePOCT Goauinr593(H)74 - 99 mg/dL05/25/2025 6:35 AM [facility] LABComment:RN NOTIFIED Specimen (Source)Anatomical Location / LateralityCollection Method / Volume Collection TimeReceived TimeBloodCapillary blood specimen / Vqpeayq8805/25/2025 6:34 AM EST05/25/2025 6:35 AM EST Narrative Authorizing ProviderResult TypeResult StatusElisabeth GOULD POINT OF CARE TEST DOCKED DEVICE UNSOLICITED RESULTSFinal ResultPerforming OrganizationAddress [facility]/ZIP CodePhone Number [facility] [address] [place] [address] * (ABNORMAL) POCT GLUCOSE (05/24/2025 10:21 PM EST)ComponentValueRef RangeTest MethodAnalysis TimePerformed AtPathologist SignaturePOCT Gtvszbm619(H)74 - 99 mg/dL05/24/2025 10:23 PM [facility] LABSpecimen (Source) Anatomical Location / LateralityCollection Method / VolumeCollection Time Received TimeBloodCapillary blood specimen / Tgxyvto5605/24/2025 10:21 PM EST 05/24/2025 10:23 PM EST Narrative Authorizing ProviderResult TypeResult StatusElisabeth GOULD POINT OF CARE TEST DOCKED DEVICE UNSOLICITED RESULTSFinal ResultPerforming OrganizationAddress [facility]/ZIP CodePhone Number [facility] [address] [place] [address] * (ABNORMAL) POCT GLUCOSE (05/24/2025 7:27 PM EST)ComponentValueRef RangeTest MethodAnalysis TimePerformed AtPathologist SignaturePOCT Wciixkk891(H)74 - 99 mg/dL05/24/2025 7:29 PM [facility] LABComment:SHALOM NOTIFIED Specimen (Source)Anatomical Location / LateralityCollection Method / Volume Collection TimeReceived TimeBloodCapillary blood specimen / Mujqhjh7405/24/2025 7:27 PM EST05/24/2025 7:29 PM EST Narrative Authorizing ProviderResult TypeResult StatusOliver Darzi MDLAB POINT OF CARE TEST DOCKED DEVICE UNSOLICITED RESULTSFinal ResultPerforming OrganizationAddress [facility]/ZIP CodePhone Number [facility] [address] [place] [address] * (ABNORMAL) POCT GLUCOSE (05/24/2025 5:47 PM EST)ComponentValueRef RangeTest MethodAnalysis TimePerformed AtPathologist SignaturePOCT Ftwczhh042(H)74 - 99 mg/dL05/24/2025 5:49 PM [facility] LABSpecimen (Source) Anatomical Location / LateralityCollection Method / VolumeCollection Time Received TimeBloodCapillary blood specimen / Ywdpjqd8205/24/2025 5:47 PM EST 05/24/2025 5:49 PM EST Narrative Authorizing ProviderResult TypeResult StatusOliver Louise DELAB POINT OF CARE TEST DOCKED DEVICE UNSOLICITED RESULTSFinal ResultPerforming OrganizationAddress [facility]/ZIP CodePhone Number [facility] [address] [place] [address] * TRANSTHORACIC ECHO (TTE) COMPLETE WITH CONTRAST (05/24/2025 3:00 PM EST) ComponentValueRef RangeTest MethodAnalysis TimePerformed AtPathologist SignatureAV mn thry6ctKzHRRWGHY pk vel1.27m/sSYNGOLV Biplane EF60%SYNGOLVOT diam2.07cmSYNGOMV E/A ratio0.69SYNGOTricuspid annular plane systolic excursion 2.4cmSYNGOLA vol index A/L19.6ml/j1OGSGMFX free wall pk S'11.71cm/sSYNGORVSP6 mmHgSYNGOLVIDd4.66cmSYNGOAortic Valve Area by Continuity of Peak Velocity2.86 od0MDKEILX pk djkx7qsVwYDICCGjnvsc Valve Area by Continuity of VTI3.63xd5WGFDY LV EF63%SYNGOLV A4C EF67.6SYNGOSpecimen (Source)Anatomical Location / LateralityCollection Method / VolumeCollection TimeReceived Time05/24/2025 2:19 PM EST Impressions [facility] - 05/25/2025 9:43 AM EST CONCLUSIONS: 1. Left ventricular ejection fraction is normal by visual estimate at 60-65%. 2. No regional wall motion abnormalities. 3. Spectral Doppler shows a Grade I (impaired relaxation pattern) of left ventricular diastolic filling with normal left atrial filling pressure. 4. There is normal right ventricular global systolic function. 5. Trace to mild tricuspid regurgitation. 6. No previous available for comparison. Narrative [facility] - 05/25/2025 9:43 AM EST ? [place] [address] TRANSTHORACIC ECHOCARDIOGRAM REPORT Patient Name: ? GISEL PAT ? Reading Physician: ?[id number] Aj ?CHARLENE Mendoza Study Date: ? 05/24/2025 ?Ordering Provider: ?[id number] ELISABETH ?LOUISE MRN/PID: ?[id number] ?Fellow: Accession#: ? [id number] ?Nurse: Date of /Age: ??1975 / 49 ? Leather Softener: ?Saundra ?years ? [place] ?RDCS Gender Assigned at ??F ? Additional Staff: : Height: ? 170.18 cm ? Admit Date: ? 05/21/2025 Weight: ? 117.93 kg ? Admission Status: ? Inpatient - ?Routine BSA / BMI: ?2.26 m2 / 40.72 ? Department Location: ??[facility] ?kg/m2 ? Echo Lab Blood Pressure: 108 /63 mmHg Study Type: ?TRANSTHORACIC ECHO (TTE) COMPLETE Diagnosis/ICD: Dyspnea, unspecified-R06.00 Indication: ?Dyspnea CPT Codes: ? Echo Complete w Full Doppler-[id number] Patient History: Diabetes: ?Yes Pertinent History: Hyperlipidemia. Study Detail: The following Echo studies were performed: 2D, M-Mode, Doppler and ?color flow. Technically challenging study due to body habitus. ?Definity used as a contrast agent for endocardial border ?definition. Total contrast used for this procedure was 2 mL via IV ?push. PHYSICIAN INTERPRETATION: Left Ventricle: Left ventricular ejection fraction is normal by visual estimate at 60-65%. There are no regional wall motion abnormalities. The left ventricular cavity size is normal. There is mild increased septal and mildly increased posterior left ventricular wall thickness. There is left ventricular concentric remodeling. Spectral Doppler shows a Grade I (impaired relaxation pattern) of left ventricular diastolic filling with normal left atrial filling pressure. Left Atrium: The left atrial size is normal. Left atrial volume index 22.6 mL/m2. Right Ventricle: The right ventricle is normal in size. There is normal right ventricular global systolic function. Right Atrium: The right atrial size is normal. Aortic Valve: The aortic valve is trileaflet. The aortic valve area by VTI is 3.04 cm? with a peak velocity of 1.27 m/s. The peak and mean gradients are 6 mmHg and 4 mmHg, respectively, with a dimensionless index of 0.90. There is minimal aortic valve cusp calcification. There is no evidence of aortic valve regurgitation. Mitral Valve: The mitral valve is normal in structure. There is no evidence of mitral valve regurgitation. The E Vmax is 0.70 m/s. Tricuspid Valve: The tricuspid valve is structurally normal. There is trace to mild tricuspid regurgitation. Pulmonic Valve: The pulmonic valve is structurally normal. There is no indication of pulmonic valveregurgitation. Pericardium: Trivial pericardial effusion. Aorta: The aortic root is normal. Systemic Veins: The inferior vena cava appears normal in size, with IVC inspiratory collapse greater than 50%. In comparison to the previous echocardiogram(s): No previous available for comparison. CONCLUSIONS: 1. Left ventricular ejection fraction is normal by visual estimate at 60-65%. 2. No regional wall motion abnormalities. 3. Spectral Doppler shows a Grade I (impaired relaxation pattern) of left ventricular diastolic filling with normal left atrial filling pressure. 4. There is normal right ventricular global systolic function. 5. Trace to mild tricuspid regurgitation. 6. No previous available for comparison. QUANTITATIVE DATA SUMMARY: 2D MEASUREMENTS: ? Normal Ranges: Ao Root d: ? 2.50 cm ? (2.0-3.7cm) IVSd: ?1.13 cm ? (0.6-1.1cm) LVPWd: ? 0.98 cm ? (0.6-1.1cm) LVIDd: ? 4.66 cm ? (3.9-5.9cm) LVIDs: ? 3.00 cm LV Mass Index: ?? 77.2 g/m2 LVEDV Index: ? 45.17 ml/m2 LV % FS ?35.6 % LEFT ATRIUM: ?Normal Ranges: LA Vol A4C: ?37.5 ml ?(22+/-6mL/m2) LA Vol A2C: ?51.2 ml LA Vol BP: ? 44.3 ml LA Vol Index A4C: ??16.6ml/m2 LA Vol Index A2C: ??22.6 ml/m2 LA Vol Index BP: ?? 19.6 ml/m2 LA Area A4C: ? 14.7 cm2 LA Area A2C: ? 17.0 cm2 LA Major Mason A4C: 4.9 cm LA Major Mason A2C: 4.8 cm LA Volume Index: ?? 18.3 ml/m2 LA Vol A4C: ?34.9 ml RIGHT ATRIUM: ?Normal Ranges: RA Vol A4C: ?19.9 ml ?? (8.3-19.5ml) RA Vol Index A4C: ??8.8 ml/m2 RA Area A4C: ? 9.8 cm2 RA Major Mason A4C: 4.1 cm AORTA MEASUREMENTS: ? Normal Ranges: Asc Ao, d: ?3.30 cm (2.1-3.4cm) LV SYSTOLIC FUNCTION: ? Normal Ranges: EF-A4C View: 68 % (>=55%) EF-A2C View: ?55 % EF-Biplane: ? 60 % EF-Visual: ?63 % LV EF Reported: 63 % LV DIASTOLIC FUNCTION: ? Normal Ranges: MV Peak E: ? 0.70 m/s ??(0.7-1.2 m/s) MV Peak A: ? 1.02 m/s ??(0.42-0.7 m/s) E/A Ratio: ? 0.69 ?(1.0-2.2) MV e' 0.065 m/s (>8.0) MV lateral e' ?0.08 m/s MV medial e' ? 0.05 m/s E/e' Ratio: 10.76 (<8.0) MITRAL VALVE: ?Normal Ranges: MV DT: ?200 msec (150-240msec) AORTIC VALVE: ? Normal Ranges: AoV Vmax: 1.27 m/s (<=1.7m/s) AoV Peak P.4 mmHg (<20mmHg) AoV Mean PG: ? 4.0 mmHg (1.7-11.5mmHg) LVOT Max Santo: 1.08 m/s (<=1.1m/s) AoV VTI: ? 25.42 cm (18-25cm) LVOT VTI: ?22.90 cm LVOT Diameter: ? 2.07 cm ??(1.8-2.4cm) AoV Area, VTI: ? 3.04 cm2 (2.5-5.5cm2) AoV Area,Vmax: ? 2.86 cm2 (2.5-4.5cm2) AoV Dimensionless Index: 0.90 RIGHT VENTRICLE: RV Basal 3.10 cm RV Mid ?? 2.70 cm RV Major 6.6 cm TAPSE: ?? 24.3 mm RV s' ?0.12 m/s TRICUSPID VALVE/RVSP: ?Normal Ranges: Peak TR Velocity: ? 0.91 m/s PULMONIC VALVE: ?Normal Ranges: PV Accel Time: 108 msec (>120ms) PV Max Santo: ? 0.7 m/s ??(0.6-0.9m/s) PV Max PG: ?2.2 mmHg AORTA: Asc Ao Diam 3.27 cm [id number] Aj Harris MD, [facility] Electronically signed on 05/25/2025 at 9:43:55 AM Final Procedure Note Aj Harris MD - 05/25/2025 [place] [id number] TRANSTHORACIC ECHOCARDIOGRAM REPORT Patient Name: GISEL PAT Reading Physician: [id number] Harris MD,[facility] Study Date: 05/24/2025 Ordering Provider: [id number] DARZI MRN/PID: [id number] Fellow: Nurse: Date of /Age: 11 1975 / Leather Softener: Saundra Garcia RDCS Gender Assigned at F Additional Staff: : Height: 170.18 cm Admit Date: 05/21/2025 Weight: 117.93 kg Admission Status: Inpatient- Routine BSA / BMI: 2.26 m2 / 40.72 Department Location: [facility]/ Echo Lab Blood Pressure: 108 /63 mmHg Study Type: TRANSTHORACIC ECHO (TTE) COMPLETE Diagnosis/ICD: Dyspnea, unspecified-R06.00 Indication: Dyspnea CPT Codes: Echo Complete w Full Doppler-[id number] Patient History: Diabetes: Yes Pertinent History: Hyperlipidemia. Study Detail: The following Echo studies were performed: 2D, M-Mode,Doppler and color flow. Technically challenging study due to bodyhabitus. Definity used as a contrast agent for endocardial border definition. Total contrast used for this procedure was 2 mLvia IV push. PHYSICIAN INTERPRETATION: Left Ventricle: Left ventricular ejection fraction is normal by visualestimate at 60-65%. There are no regional wall motion abnormalities. Theleft ventricular cavity size is normal. There is mild increased septal andmildly increased posterior left ventricular wall thickness. There is leftventricular concentric remodeling. Spectral Doppler shows a Grade I(impaired relaxation pattern) of left ventricular diastolic filling withnormal left atrial filling pressure. Left Atrium: The left atrial size is normal. Left atrial volume index 22.6mL/m2. Right Ventricle: The right ventricle is normal in size. There is normalright ventricular global systolic function. Right Atrium: The right atrial size is normal. Aortic Valve: The aortic valve is trileaflet. The aortic valve area by VTIis 3.04 cm? with a peak velocity of 1.27 m/s. The peak and mean gradientsare 6 mmHg and 4 mmHg, respectively, with a dimensionless index of 0.90.There is minimal aortic valve cusp calcification. There is no evidence ofaortic valve regurgitation. Mitral Valve: The mitral valve is normal in structure. There is noevidence of mitral valve regurgitation. The E Vmax is 0.70 m/s. Tricuspid Valve: The tricuspid valve is structurally normal. There istrace to mild tricuspid regurgitation. Pulmonic Valve: The pulmonic valve is structurally normal. There is noindication of pulmonic valve regurgitation. Pericardium: Trivial pericardial effusion. Aorta: The aortic root is normal. Systemic Veins: The inferior vena cava appears normal in size, with IVC inspiratory collapse greater than 50%. In comparison to the previous echocardiogram(s): No previous available for comparison. CONCLUSIONS: 1. Left ventricular ejection fraction is normal by visual estimate at60-65%. 2. No regional wall motion abnormalities. 3. Spectral Doppler shows a Grade I (impaired relaxation pattern) of left ventricular diastolic filling with normal left atrial filling pressure. 4. There is normal right ventricular global systolic function. 5. Trace to mild tricuspid regurgitation. 6. No previous available for comparison. QUANTITATIVE DATA SUMMARY: 2D MEASUREMENTS: Normal Ranges: Ao Root d: 2.50 cm (2.0-3.7cm) IVSd: 1.13 cm (0.6-1.1cm) LVPWd: 0.98 cm (0.6-1.1cm) LVIDd: 4.66 cm (3.9-5.9cm) LVIDs: 3.00 cm LV Mass Index: 77.2 g/m2 LVEDV Index: 45.17 ml/m2 LV % FS 35.6 % LEFT ATRIUM: Normal Ranges: LA Vol A4C: 37.5 ml (22+/-6mL/m2) LA Vol A2C: 51.2 ml LA Vol BP: 44.3 ml LA Vol Index A4C: 16.6ml/m2 LA Vol Index A2C: 22.6 ml/m2 LA Vol Index BP: 19.6 ml/m2 LA Area A4C: 14.7 cm2 LA Area A2C: 17.0 cm2 LA Major Mason A4C: 4.9 cm LA Major Mason A2C: 4.8 cm LA Volume Index: 18.3 ml/m2 LA Vol A4C: 34.9 ml RIGHT ATRIUM: Normal Ranges: RA Vol A4C: 19.9 ml (8.3-19.5ml) RA Vol Index A4C: 8.8 ml/m2 RA Area A4C: 9.8 cm2 RA Major Mason A4C: 4.1 cm AORTA MEASUREMENTS: Normal Ranges: Asc Ao, d: 3.30 cm (2.1-3.4cm) LV SYSTOLIC FUNCTION: Normal Ranges: EF-A4C View: 68 % (>=55%) EF-A2C View: 55 % EF-Biplane: 60 % EF-Visual: 63 % LV EF Reported: 63 % LV DIASTOLIC FUNCTION: Normal Ranges: MV Peak E: 0.70 m/s (0.7-1.2 m/s) MV Peak A: 1.02 m/s (0.42-0.7 m/s) E/A Ratio: 0.69 (1.0-2.2) MV e' 0.065 m/s (>8.0) MV lateral e' 0.08 m/s MV medial e' 0.05 m/s E/e' Ratio: 10.76 (<8.0) MITRAL VALVE: Normal Ranges: MV DT: 200 msec (150-240msec) AORTIC VALVE: Normal Ranges: AoV Vmax: 1.27 m/s (<=1.7m/s) AoV Peak P.4 mmHg (<20mmHg) AoV Mean P.0 mmHg (1.7-11.5mmHg) LVOT Max Santo: 1.08 m/s (<=1.1m/s) AoV VTI: 25.42 cm (18-25cm) LVOT VTI: 22.90 cm LVOT Diameter: 2.07 cm (1.8-2.4cm) AoV Area, VTI: 3.04 cm2 (2.5-5.5cm2) AoV Area,Vmax: 2.86 cm2 (2.5-4.5cm2) AoV Dimensionless Index: 0.90 RIGHT VENTRICLE: RV Basal 3.10 cm RV Mid 2.70 cm RV Major 6.6 cm TAPSE: 24.3 mm RV s' 0.12 m/s TRICUSPID VALVE/RVSP: Normal Ranges: Peak TR Velocity: 0.91 m/s PULMONIC VALVE: Normal Ranges: PV Accel Time: 108 msec (>120ms) PV Max Santo: 0.7 m/s (0.6-0.9m/s) PV Max P.2 mmHg AORTA: Asc Ao Diam 3.27 cm [id number] jA Harris MD, [facility] Electronically signed on 05/25/2025 at 9:43:55 AM Final IMPRESSION: CONCLUSIONS: 1. Left ventricular ejection fraction is normal by visual estimate at60-65%. 2. No regional wall motion abnormalities. 3. Spectral Doppler shows a Grade I (impaired relaxation pattern) of left ventricular diastolic filling with normal left atrial filling pressure. 4. There is normal right ventricular global systolic function. 5. Trace to mild tricuspid regurgitation. 6. No previous available for comparison. Authorizing ProviderResult TypeResult StatusOliver [facility] ECHO PROCEDURES Final ResultPerforming OrganizationAddressCity/State/ZIP CodePhone Number [place] * (ABNORMAL) POCT GLUCOSE (05/24/2025 10:37 AM EST)ComponentValueRef RangeTest MethodAnalysis TimePerformed AtPathologist SignaturePOCT Bmzyjzs210(H)74 - 99 mg/dL05/24/2025 10:39 AM [facility] LABSpecimen (Source) Anatomical Location / LateralityCollection Method / VolumeCollection Time Received TimeBloodCapillary blood specimen / Vegxiro6905/24/2025 10:37 AM EST 05/24/2025 10:39 AM EST Narrative Authorizing ProviderResult TypeResult StatusOliparviz GOULD POINT OF CARE TEST DOCKED DEVICE UNSOLICITED RESULTSFinal ResultPerforming OrganizationAddress City/State/ZIP CodePhone Number [facility] [address] [place] [address] * SST TOP (05/24/2025 10:36 AM EST) Only the most recent of2 resultswithin the time period is included. ComponentValueRef RangeTest MethodAnalysis TimePerformed AtPathologist Signature Extra TubeHold for add-ons.05/26/2025 8:31 AM [facility] Comment:Auto resulted.Specimen (Source)Anatomical Location / Laterality Collection Method / VolumeCollection TimeReceived TimeBloodVenous blood specimen / Ufigicd0005/24/2025 10:36 AM EST05/24/2025 10:56 AM EST Narrative Authorizing ProviderResult TypeResult StatusElisabeth GOULD BLOOD ORDERABLES Final ResultPerforming OrganizationAddressCity/State/ZIP CodePhone Number [facility] [address] [place] [address] * B-type natriuretic peptide (05/24/2025 10:36 AM EST)ComponentValueRef Range Test MethodAnalysis TimePerformed AtPathologist MlogoewvaONL546 - 99 pg/mL LAB IMMUNOASSAY METHOD 05/24/2025 11:15 AM [facility] LABSpecimen (Source)Anatomical Location / LateralityCollection Method / VolumeCollection TimeReceived TimeBlood Venous blood specimen / UnknownVenipuncture / Hmlcqku1105/24/2025 10:36 AM EST 05/24/2025 10:47 AM EST Narrative [facility] - 05/24/2025 11:15 AM EST <100 pg/mL - Heart failure unlikely 100-299 pg/mL - Intermediate probability of acute heart ?failure exacerbation. Correlate with clinical ?context and patient history. >=300 pg/mL - Heart Failure likely. Correlate with clinical ?context and patient history. BNP testing is performed using different testing methodology at [facility] than at other [facility]. Direct result comparisons should only be made within the same method. Authorizing ProviderResult TypeResult StatusElisabeth GOULD BLOOD ORDERABLES Final ResultPerforming OrganizationAddressK[facility]/State/ZIP CodePhone Number [facility] [address] [place] [phone] * (ABNORMAL) POCT GLUCOSE (05/24/2025 6:37 AM EST)ComponentValueRef RangeTest MethodAnalysis TimePerformed AtPathologist SignaturePOCT Nokjyhu796(H)74 - 99 mg/dL05/24/2025 6:39 AM [facility] LABComment:RN NOTIFIED Specimen (Source)Anatomical Location / LateralityCollection Method / Volume Collection TimeReceived TimeBloodCapillary blood specimen / Pejaxos4205/24/2025 6:37 AM EST05/24/2025 6:39 AM EST Narrative Authorizing ProviderResult TypeResult StatusElisabeth GOULD POINT OF CARE TEST DOCKED DEVICE UNSOLICITED RESULTSFinal ResultPerforming OrganizationAddress City/State/ZIP CodePhone Number [facility] [address] [place] [phone] * (ABNORMAL) POCT GLUCOSE (05/23/2025 7:36 PM EST)ComponentValueRef RangeTest MethodAnalysis TimePerformed AtPathologist SignaturePOCT Alexxdz314(H)74 - 99 mg/dL05/23/2025 7:38 PM [facility] LABSpecimen (Source) Anatomical Location / LateralityCollection Method / VolumeCollection Time Received TimeBloodCapillary blood specimen / Wugtwwq8305/23/2025 7:36 PM EST 05/23/2025 7:38 PM EST Narrative Authorizing ProviderResult TypeResult StatusElisabeth GOULD POINT OF CARE TEST DOCKED DEVICE UNSOLICITED RESULTSFinal ResultPerforming OrganizationAddress City/State/ZIP CodePhone Number [facility] [address] [place] [address] * XR chest 1 view (05/23/2025 4:00 PM EST)Anatomical RegionLateralityModality Thoracic, ChestComputed RadiographySpecimen (Source)Anatomical Location / LateralityCollection Method / VolumeCollection TimeReceived Time05/24/2025 8:34 AM EST05/24/2025 8:34 AM EST Impressions 05/24/2025 8:33 AM EST 1. Constellation of findings suggestive of mild pulmonary edema. ? MACRO: None ?? Signed by: Damian Ford 05/24/2025 8:33 AM Dictation workstation: ?? [id number] Narrative 05/24/2025 8:33 AM EST Interpreted By: Damian Ford, STUDY: XR CHEST 1 VIEW; ??05/23/2025 4:00 pm ?? INDICATION: Signs/Symptoms:hypoxia. ? COMPARISON: 12/30/2024. ?? ACCESSION NUMBER(S): [id number] ?? ORDERING CLINICIAN: ELISABETH GIL ?? FINDINGS: Cephalization of pulmonary vasculature. Hazy bilateral lung field opacities. No pneumothorax. No large pleural effusion. Slightly increased prominence of the cardiac silhouette likely related to differences in inspiratory effort.Fissural fluid present. Osseous structures grossly intact. ?? Procedure Note Damian Ford MD - 05/24/2025 Interpreted By: Damian oFrd, STUDY: XR CHEST 1 VIEW; 05/23/2025 4:00 pm INDICATION: Signs/Symptoms:hypoxia. COMPARISON: 12/30/2024. ACCESSION NUMBER(S): [id number] ORDERING CLINICIAN: ELISABETH GIL FINDINGS: Cephalization of pulmonary vasculature. Hazy bilateral lung field opacities. No pneumothorax. No large pleural effusion. Slightly increased prominence of the cardiac silhouette likely related to differences in inspiratory effort.Fissural fluid present. Osseous structures grossly intact. IMPRESSION: 1. Constellation of findings suggestive of mild pulmonary edema. MACRO: None Signed by: Damian Ford 05/24/2025 8:33 AM Dictation workstation: [id number] Authorizing ProviderResult TypeResult StatusElisabeth Gil MDIMG XR PROCEDURES Final Result * (ABNORMAL) POCT GLUCOSE (05/23/2025 3:57 PM EST)ComponentValueRef RangeTest MethodAnalysis TimePerformed AtPathologist SignaturePOCT Ixlquih645(H)74 - 99 mg/dL05/23/2025 3:59 PM [facility] LABSpecimen (Source) Anatomical Location / LateralityCollection Method / VolumeCollection Time Received TimeBloodCapillary blood specimen / Skrombn1305/23/2025 3:57 PM EST 05/23/2025 3:59 PM EST Narrative Authorizing ProviderResult TypeResult StatusElisabeth Gil [facility]DSUR[facility] POINT OF CARE TEST DOCKED DEVICE UNSOLICITED RESULTSFinal ResultPerforming OrganizationAddress [facility]/ZIP CodePhone Number [facility] [address] [place] [address] * (ABNORMAL) POCT GLUCOSE (05/23/2025 10:51 AM EST)ComponentValueRef RangeTest MethodAnalysis TimePerformed AtPathologist SignaturePOCT Zrgolrj458(H)74 - 99 mg/dL05/23/2025 10:52 AM [facility] LABSpecimen (Source) Anatomical Location / LateralityCollection Method / VolumeCollection Time Received TimeBloodCapillary blood specimen / Mkiztbo6505/23/2025 10:51 AM EST 05/23/2025 10:52 AM EST Narrative Authorizing ProviderResult TypeResult StatusElisabeth Gil [facility] POINT OF CARE TEST DOCKED DEVICE UNSOLICITED RESULTSFinal ResultPerforming OrganizationAddress [facility]/ZIP CodePhone Number [facility] [address] [place] [address] * XR abdomen 1 view (05/23/2025 10:23 AM EST) Only the most recent of2 resultswithin the time period is included. Anatomical RegionLateralityModalityThoracic, AbdomenComputed RadiographySpecimen (Source)Anatomical Location / LateralityCollection Method / VolumeCollection TimeReceived Time05/23/2025 10:31 AM EST05/23/2025 10:31 AM EST Impressions 05/23/2025 10:30 AM EST As above ?? MACRO: None ?? Signed by: Ryan Reed 05/23/2025 10:30 AM Dictation workstation: ?? [id number] Narrative 05/23/2025 10:30 AM EST Interpreted By: Ryan Reed, STUDY: XR ABDOMEN 1 VIEW; ??05/23/2025 10:23 am ?? INDICATION: Signs/Symptoms:assess illeus. ? COMPARISON: CT abdomen and pelvis without contrast 21 May 2025; KUB 22 May 2025 ?? ACCESSION NUMBER(S): [id number] ?? ORDERING CLINICIAN: QUINCY RANGEL ?? TECHNIQUE: Frontal supine view of the abdomen ?? FINDINGS: More gas-filled borderline and mildly dilated mid and right abdominal small bowel loops compared to yesterday but also increasing left colonic gas which is reassuring ?? Procedure Note Ryan Reed MD - 05/23/2025 Interpreted By: Ryan Reed, STUDY: XR ABDOMEN 1 VIEW; 05/23/2025 10:23 am INDICATION: Signs/Symptoms:assess illeus. COMPARISON: CT abdomen and pelvis without contrast 21 May 2025; KUB 22 May 2025 ACCESSION NUMBER(S): [id number] ORDERING CLINICIAN: QUINCY RANGEL TECHNIQUE: Frontal supine view of the abdomen FINDINGS: More gas-filled borderline and mildly dilated mid and right abdominal small bowel loops compared to yesterday but also increasing left colonic gas which is reassuring IMPRESSION: As above MACRO: None Signed by: Ryan Reed 05/23/2025 10:30 AM Dictation workstation: [id number] Authorizing ProviderResult TypeResult StatusAndblanka FRANK-JOHN XR PROCEDURESFinal Result * (ABNORMAL) POCT GLUCOSE (05/23/2025 6:35 AM EST)ComponentValueRef RangeTest MethodAnalysis TimePerformed AtPathologist SignaturePOCT Lknpzqu904(H)74 - 99 mg/dL05/23/2025 6:37 AM [facility] LABSpecimen (Source) Anatomical Location / LateralityCollection Method / VolumeCollection Time Received TimeBloodCapillary blood specimen / Vvayamm6205/23/2025 6:35 AM EST 05/23/2025 6:37 AM EST Narrative Authorizing ProviderResult TypeResult StatusTamone GOULD POINT OF CARE TEST DOCKED DEVICE UNSOLICITED RESULTSFinal ResultPerforming Organization AddressCity/State/ZIP CodePhone Number [facility] [address] [place] [address] * CBC (05/23/2025 4:13 AM EST)ComponentValueRef RangeTest MethodAnalysis Time Performed AtPathologist SignatureWBC4.64.4 - 11.3 x10*3/uL LAB HEMATOLOGY METHOD 05/23/2025 4:50 AM [facility] LABnRBC0.00.0 - 0.0 /100 WBCs LAB HEMATOLOGY METHOD 05/23/2025 4:50 AM [facility] LABRBC4.244.00 - 5.20 x10*6/uL LAB HEMATOLOGY METHOD 05/23/2025 4:50 AM [facility] DQGYmsleyiveu97.612.0 - 16.0 g/dL LAB HEMATOLOGY METHOD 05/23/2025 4:50 AM [facility] YTDQahibzznpa37.036.0 - 46.0 % LAB HEMATOLOGY METHOD 05/23/2025 4:50 AM [facility] VROJKD0255 - 100 fL LAB HEMATOLOGY METHOD 05/23/2025 4:50 AM [facility] RUDNPW43.726.0 - 34.0 pg LAB HEMATOLOGY METHOD 05/23/2025 4:50 AM [facility] HVEEJIG47.232.0 - 36.0 g/dL LAB HEMATOLOGY METHOD 05/23/2025 4:50 AM [facility] OPDAZZ97.411.5 - 14.5 % LAB HEMATOLOGY METHOD 05/23/2025 4:50 AM [facility] GSSIwgokxyaj199967 - 450 x10*3/uL LAB HEMATOLOGY METHOD 05/23/2025 4:50 AM [facility] LABSpecimen (Source)Anatomical Location / LateralityCollection Method / VolumeCollection TimeReceived TimeBlood Venous blood specimen / UnknownVenipuncture / Ghwtmou0105/23/2025 4:13 AM EST 05/23/2025 4:47 AM EST Narrative Authorizing ProviderResult TypeResult Leif GOULD BLOOD ORDERABLESFinal ResultPerforming OrganizationAddressCity/State/ZIP CodePhone Number [facility] [address] [place] [phone] * (ABNORMAL) POCT GLUCOSE (05/22/2025 7:45 PM EST)ComponentValueRef RangeTest MethodAnalysis TimePerformed AtPathologist SignaturePOCT Aeeuqpv461(H)74 - 99 mg/dL05/22/2025 7:47 PM [facility] LABSpecimen (Source) Anatomical Location / LateralityCollection Method / VolumeCollection Time Received TimeBloodCapillary blood specimen / Pbmwocw4005/22/2025 7:45 PM EST 05/22/2025 7:47 PM EST Narrative Authorizing ProviderResult TypeResult Leif GOULD POINT OF CARE TEST DOCKED DEVICE UNSOLICITED RESULTSFinal ResultPerforming Organization AddressCity/State/ZIP CodePhone Number [facility] [address] [place] [phone] * (ABNORMAL) POCT GLUCOSE (05/22/2025 4:51 PM EST)ComponentValueRef RangeTest MethodAnalysis TimePerformed AtPathologist SignaturePOCT Ffvcalm309(H)74 - 99 mg/dL05/22/2025 4:53 PM [facility] LABSpecimen (Source) Anatomical Location / LateralityCollection Method / VolumeCollection Time Received TimeBloodCapillary blood specimen / Evhripa9005/22/2025 4:51 PM EST 05/22/2025 4:53 PM EST Narrative Authorizing ProviderResult TypeResult StatusEstevan GOULD POINT OF CARE TEST DOCKED DEVICE UNSOLICITED RESULTSFinal ResultPerforming Organization AddressCity/State/ZIP CodePhone Number [facility] [address] [place] [phone] * (ABNORMAL) POCT GLUCOSE (05/22/2025 11:23 AM EST)ComponentValueRef RangeTest MethodAnalysis TimePerformed AtPathologist SignaturePOCT Nwobifc470(H)74 - 99 mg/dL05/22/2025 11:28 AM [facility] LABSpecimen (Source) Anatomical Location / LateralityCollection Method / VolumeCollection Time Received TimeBloodCapillary blood specimen / Mvihedg6005/22/2025 11:23 AM EST 05/22/2025 11:28 AM EST Narrative Authorizing ProviderResult TypeResult Leif Henderson MDSUR[facility] POINT OF CARE TEST DOCKED DEVICE UNSOLICITED RESULTSFinal ResultPerforming Organization AddressCity/[facility]/ZIP CodePhone [facility] [address] [place] [phone] * (ABNORMAL) POCT GLUCOSE (05/22/2025 6:37 AM EST)ComponentValueRef RangeTest MethodAnalysis TimePerformed AtPathologist SignaturePOCT Vldocqa641(H)74 - 99 mg/dL05/22/2025 6:39 AM [facility] LABComment:RN NOTIFIED Specimen (Source)Anatomical Location / LateralityCollection Method / Volume Collection TimeReceived TimeBloodCapillary blood specimen / Nijbais8205/22/2025 6:37 AM EST05/22/2025 6:39 AM EST Narrative Authorizing ProviderResult TypeResult StatusJuice GOULD POINT OF CARE TEST DOCKED DEVICE UNSOLICITED RESULTSFinal ResultPerforming Organization Addressty/[facility]/ZIP CodePhone [facility] [address] [place] [phone] * (ABNORMAL) POCT GLUCOSE (05/21/2025 9:42 PM EST)ComponentValueRef RangeTest MethodAnalysis TimePerformed AtPathologist SignaturePOCT Zmpeyvo427(H)74 - 99 mg/dL05/21/2025 9:43 PM [facility] LABComment:RN NOTIFIED Specimen (Source)Anatomical Location / LateralityCollection Method / Volume Collection TimeReceived TimeBloodCapillary blood specimen / Qgbwljp3105/21/2025 9:42 PM EST05/21/2025 9:43 PM EST Narrative Authorizing ProviderResult TypeResult StatusRobert J Weingart MDLAB POINT OF CARE TEST DOCKED DEVICE UNSOLICITED RESULTSFinal ResultPerforming Organization AddressCity/State/ZIP CodePhone Number [facility] [address] [place] [phone] * aPTT (05/21/2025 4:15 PM EST)ComponentValueRef RangeTest MethodAnalysis Time Performed AtPathologist BwofaimvwqZMM0989 - 36 seconds LAB COAGULATION METHOD 05/21/2025 4:33 PM [facility] LABSpecimen (Source)Anatomical Location / LateralityCollection Method / VolumeCollection TimeReceived TimeBlood Venous blood specimen / UnknownVenipuncture / Fxrkngl2805/21/2025 4:15 PM EST 05/21/2025 4:18 PM EST Narrative [facility] - 05/21/2025 4:33 PM EST The APTT is no longer used for monitoring Unfractionated Heparin Therapy. For monitoring Heparin Therapy, use the Heparin Assay. Authorizing ProviderResult TypeResult StatusAntoni GOULD BLOOD ORDERABLESFinal ResultPerforming OrganizationAddressCity/State/ZIP CodePhone Number [facility] [address] [place] [phone] * Protime-INR (05/21/2025 4:15 PM EST)ComponentValueRef RangeTest MethodAnalysis TimePerformed AtPathologist YyzxnzvbzJqynxxb06.69.8 - 12.4 seconds LAB COAGULATION METHOD 05/21/2025 4:33 PM [facility] LABINR1.00.9 - 1.1 LAB COAGULATION METHOD 05/21/2025 4:33 PM [facility] LABSpecimen (Source)Anatomical Location / LateralityCollection Method / VolumeCollection TimeReceived TimeBlood Venous blood specimen / UnknownVenipuncture / Rjdtfuy4505/21/2025 4:15 PM EST 05/21/2025 4:18 PM EST Narrative Authorizing ProviderResult TypeResult StatusPrastas Dee MDLAB BLOOD ORDERABLESFinal ResultPerforming OrganizationAddressCity/State/ZIP CodePhone Number [facility] [address] [place] [phone] * (ABNORMAL) Hemoglobin A1C (05/21/2025 4:15 PM EST)ComponentValueRef RangeTest MethodAnalysis TimePerformed AtPathologist SignatureHemoglobin A1C9.7(H)See comment %05/22/2025 8:59 AM [facility] LABEstimated Average Pjuycsy121Vrs Established mg/dL05/22/2025 8:59 AM [facility] LABSpecimen (Source)Anatomical Location / LateralityCollection Method / VolumeCollection TimeReceived Time BloodVenous blood specimen / UnknownVenipuncture / Afaygbe0505/21/2025 4:15 PM EST05/21/2025 4:18 PM EST Narrative [facility] - 05/22/2025 8:59 AM EST Diagnosis of Diabetes-Adults Non-Diabetic: < or = 5.6% Increased risk for developing diabetes: 5.7-6.4% Diagnostic of diabetes: > or = 6.5% Authorizing ProviderResult TypeResult StatusJenntom Jha CATTLE FARMER-CNPLAB BLOOD ORDERABLESFinal ResultPerforming OrganizationAddressCity/State/ZIP CodePhone Number [facility] [address] [place], [place] [phone] * US renal complete (05/18/2025 9:32 PM EST) Only the most recent of2 resultswithin the time period is included. Anatomical RegionLateralityModalityKidneyUltrasoundSpecimen (Source)Anatomical Location / LateralityCollection Method / VolumeCollection TimeReceived Time 05/18/2025 9:32 PM EST Narrative 05/19/2025 11:26 AM EST Exam Date/Time: 05/18/2025 21:57 EST Reason for Exam: left flank;Pain Report IMPRESSION: ??NEGATIVE LIMITED RENAL ULTRASOUND. EXAM: US Renal DATE: 05/18/2025 9:32 PM CLINICAL HISTORY: ??Pain, left flank. COMPARISON: ??Renal ultrasound 04/18/[address] abdomen and pelvis 04/03/2025. TECHNIQUE: Transabdominal ultrasound of the kidneys was performed. FINDINGS: ?? The study is mild to moderately limited by the patient's body habitus. Both kidneys are normal in size, position and morphology, with renal cortex echogenicity within normal limits. ?? There is no hydronephrosis, abnormal perinephric collections, solid or cystic renal masses identified. Right Kidney Length: 12.2 cm Cortex: 2.3 cm Left Kidney Length: 13.6 cm Cortex: 2.2 cm Ordering Provider: Wilmer Ayoub FINAL REPORT Dictated: ??05/19/2025 11:23 am ?Gio Joiner MD Signed (Electronic Signature): ??05/19/2025 11:23 am Signed by: ??Gio Joiner MD Transcribed by: ??DP ? Technologist: ??AB Authorizing ProviderResult TypeResult StatusWilmer Ayoub DOIMG US PROCEDURES Final Result * NON-[facility] HIE EXTRA BLUE (05/18/2025 7:44 PM EST) Only the most recent of2 resultswithin the time period is included. ComponentValueRef RangeTest MethodAnalysis TimePerformed AtPathologist Signature NON-UH HIE TUBE COLLECTED PLASMAYesMARTIN MEMORIAL HOSPITALpecimen (Source) Anatomical Location / LateralityCollection Method / VolumeCollection Time Received TimeALLI[facility]HE[facility]- Blood05/18/2025 7:44 PM EST Narrative Authorizing ProviderResult TypeResult StatusWilmer Ayoub DOLAB BLOOD ORDERABLES Final ResultPerforming OrganizationAddressCity/State/ZIP CodePhone Number [facility] [address] [place] [address], * (ABNORMAL) NON-[facility] HIE CBC w/ Auto Diff (05/18/2025 7:44 PM EST) Only the most recent of2 resultswithin the time period is included. ComponentValueRef RangeTest MethodAnalysis TimePerformed AtPathologist Signature NON-[facility] HIE WBC6.14.0 - 11.0 E9/[facility] RBC4.64.3 - 5.9 E12/LFSYCAMORE MEDICAL CENTERNON-UH HIE HGB14.112.0 - 16.0 gm/dLCHILDREN'S HOSPITAL OF COL[facility]BUSNON-[facility] HIE HCT39.934.0 - 46.0 %[facility] NON-UH HIE RDW14.9(H)10.9 - 14.2 %[facility] H[facility] MCH30.5 27.0 - 34.0 [facility] HIE MCHC35.431.4 - 36.0 gm/dL [facility] MCV86.180.0 - 100.0 [facility] HIE MPV6.76.4 - 10.8 [facility] HIE HXZPNUMR363.0150.0 - 500.0 E9/[facility] HIE NEUTRO AUTO 56.336.0 - 75.0 %[facility] HIE LYMPH AUTO32.214.0 - 50.0 %[facility] HIE MONO AUTO7.34.0 - 14.0 %[facility] HIE EOS AUTO3.20.0 - 8.0 %[facility] HIE BASOPHIL AUTO1.00.0 - 2.0 %[facility] HIE NEUTRO ABSOLUTE3.42.0 - 7.5 E9/[facility] HIE LYMPH ABSOLUTE2.0 1.0 - 4.0 E9/[facility] HIE MONO ABSOLUTE0.40.2 - 1.0 E9/[facility] HIE EOS ABSOLUTE0.20.0 - 0.5 E9/[facility] HIE BASOPHIL ABSOLUTE0.10.0 - 0.2 E9/[facility]ENTERpecimen (Source)Anatomical Location / LateralityCollection Method / VolumeCollection TimeReceived TimeALLIANCEHEALTH [facility]AD[facility]- Blood05/18/2025 7:44 PM EST Narrative Authorizing ProviderResult TypeResult StatusWilmer PATRICIO BLOOD ORDERABLES Final ResultPerforming OrganizationAddressCity/State/ZIP CodePhone Number [facility] [address] [place] [address], * NON-[facility] HIE eGFR (05/18/2025 7:44 PM EST) Only the most recent of2 resultswithin the time period is included. ComponentValueRef RangeTest MethodAnalysis TimePerformed AtPathologist Signature NON-[facility] HIE EGFR90>=59 mL/min/1.73 f1BBOSDPMARTIN MEMORIAL HOSPITALpecimen (Source) Anatomical Location / LateralityCollection Method / VolumeCollection Time Received TimeALL[facility]HE[facility]- Blood05/18/2025 7:44 PM EST Narrative Authorizing ProviderResult TypeResult StatusWilmer PATRICIO BLOOD ORDERABLES Final ResultPerforming OrganizationAddressCity/State/ZIP CodePhone Number [facility] [address] [place] [phone], [place] * (ABNORMAL) NON-[facility] HIE CMP (05/18/2025 7:44 PM EST)ComponentValueRef RangeTest MethodAnalysis TimePerformed AtPathologist SignatureHIGHSMITH-[facility] GLUCOSE YBK333 (H)55 - 199 mg/dLMERCY HEALTH WEST [facility] HIE AUP796 - 21 mg/dLDAYTON VA MEDICAL CENTERE CREATININE0.80.5 - 1.3 mg/dLDAYTON VA MEDICAL CENTERE CALCIUM LVL9.58.9 - 11.1 mg/dLDAYTON VA MEDICAL CENTERE SODIUM [id number] - 145 mmol/LFMARIETTA MEMORIAL HOSPITALE POTASSIUM LVL3.93.5 - 5.3 mmol/LFLAKEHEALTH TRIPOINT MEDICAL CENTERE DQPZKJDQ067481 - 111 mmol/LFH[facility] HIE XJ61424 - 31 mmol/LFLAKEHEALTH TRIPOINT MEDICAL CENTERE ALK ZOCF6459 - 98 Int._Unit/L [facility] BILI TOTAL0.40.0 - 1.1 mg/dLDAYTON VA MEDICAL CENTERE ALBUMIN LVL4.63.3 - 5.0 gm/dLDAYTON VA MEDICAL CENTERE TOTAL PROTEIN8.1(H)6.0 - 7.8 gm/dLCH[facility]DR[facility]IE XEJ047 - 46 Int._Unit/[facility] HIE SZA933 - 43 Int._Unit/LFLAKEHEALTH TRIPOINT MEDICAL CENTERE BUN/CREAT KWRLX6422 - 20 No UnitsDAYTON VA MEDICAL CENTERE SNHL912 - 16 mEq/LFH[facility] HIE GLOBULIN3.51.4 - 4.0 gm/dLCH[facility]DR[facility] NON-[facility] HIE A/G RATIO1.31.1 - 2.2[facility] HOSPITALpecvidant pungo hospitaln (Source) Anatomical Location / LateralityCollection Method / VolumeCollection Time Received [facility]- Blood05/18/2025 7:44 PM EST Narrative Authorizing ProviderResult TypeResult StatusWilmer JUAREZAB BLOOD ORDERABLES Final ResultPerforming OrganizationAddressty/State/[place] [address], [place] * NON-[facility] HIE UA WITH CULT RFLX SP (05/18/2025 7:23 PM EST) Only the most recent of2 resultswithin the time period is included. ComponentValueRef RangeTest MethodAnalysis TimePerformed AtPathologist Signature NON-[facility] HIE UA Spec DescClean CatchMARTIN MEMORIAL HOSPITALpecimen (Source) Anatomical Location / LateralityCollection Method / VolumeCollection Time Received [facility]- Urine05/18/2025 7:23 PM EST Narrative Authorizing ProviderResult TypeResult StatusWilmer JUAREZAB BLOOD ORDERABLES Final ResultPerforming OrganizationAddressty/State/[place]IP [place] [address], [place] * (ABNORMAL) NON-[facility] HIE UA WITH CULT RFLX (05/18/2025 7:23 PM EST) Only the most recent of2 resultswithin the time period is included. ComponentValueRef RangeTest MethodAnalysis TimePerformed AtPathologist Signature NON-UH HIE UA ColorLight-Madison(A)YellowCHILDREN'S HOSPITAL OF COLUMBUSComment: Microscopic readings are only performed on those samples that meet specific criteria set forth by [facility].NON-[facility] HIE UA ClarityTurbid(A)ClearCHILDREN'S HOSPITAL OF COLUMBUSNON-UH HIE UA Spec Grav1.044 1.005 - 1.030[facility]NON-[facility] HIE UA pH6.05.0 - 9.0[facility]NON-[facility] HIE UA ProteinNegativeNegative mg/dLCHILDREN'S HOSPITAL OF COL[facility]BUSNON-UH HIE UA Glucose4+(A)Negative mg/dLST. ANTHONY'S HOSPITAL UA KetonesNegativeNegative mg/dLST. ANTHONY'S HOSPITAL UA BiliNegativeNegative mg/dLST. ANTHONY'S HOSPITAL UA Blood3+(A) Negative mg/dLST. ANTHONY'S HOSPITAL UA NitriteNegativeNegative mg/dLST. ANTHONY'S HOSPITAL UA UrobilinogenNegativeNegative mg/dL [facility] UA Leuk Wlu102 Matthew/uL(A)Negative CD:[id number]. ANTHONY'S HOSPITAL UA GWH53-46(A)0 - 5 CD:[id number]. ANTHONY'S HOSPITAL UA RBC>75(A)0 - 3 CD:[id number]. ANTHONY'S HOSPITAL UA Squam Epithelial>10 CD:[id number]. ANTHONY'S HOSPITAL UA MUCOUSTraceNegative CD:[id number]. ANTHONY'S HOSPITAL UA BUDDING YEAST1+(A) CD:[id number] MEMORIAL HOSPITALpecimen (Source)Anatomical Location / LateralityCollection Method / VolumeCollection TimeReceived TimeALLIANCEHEALTH [facility] Lab- Urine 05/18/2025 7:23 PM EST Narrative Authorizing ProviderResult TypeResult StatusWilmer PATRICIO BLOOD ORDERABLES Final ResultPerforming OrganizationAddressCity/State/ZIP CodePhone Number [facility] [address] [place] [phone], * NON-[facility] HIE C Urine (05/18/2025 7:23 PM EST) Only the most recent of2 resultswithin the time period is included. Specimen (Source)Anatomical Location / LateralityCollection Method / Volume Collection TimeReceived TimeALLIANCEHEALTH MADILL [facility] U IklfrHrezx16/20/2025 7:23 PM EST Narrative [facility] - 05/20/2025 8:56 AM EST Microbiology PROCEDURE: ?Urine Culture ??[R1] ?ACCESSION: ?[id number] SOURCE: ? U CleanCatch ? BODY SITE: COLLECTED DATE/TIME: ?05/18/2025 19:23 EST ? RECEIVED DATE/TIME: ? 05/18/2025 21:12 EST START DATE/TIME: ?05/18/2025 21:12 EST ? FREE TEXT SOURCE: Wilmer Ayoub DO ?Wilmer Ayoub DO FINAL REPORTS Final Report ??[] ?Verified Date/Time: 05/20/2025 08:56 EST <10,000 cfu/ml Mixed skin contaminants Performing Locations R1: ?? This test was performed at: ?[facility], [address] [place] [address], [address] ?, [place], Authorizing ProviderResult TypeResult StatusWilmer PATRICIO BLOOD ORDERABLES Final ResultPerforming OrganizationAddressCity/State/ZIP CodePhone Number [address] [phone], * Troponin I, High Sensitivity (05/14/2025 6:03 PM EST)ComponentValueRef Range Test MethodAnalysis TimePerformed AtPathologist SignatureTroponin I, High Sensitivity<30 - 13 ng/L LAB IMMUNOASSAY METHOD 05/14/2025 6:37 PM [facility] LABSpecimen (Source)Anatomical Location / LateralityCollection Method / VolumeCollection TimeReceived TimeBlood Venous blood specimen / UnknownVenipuncture / Jkwkpei7705/14/2025 6:03 PM EST 05/14/2025 6:09 PM EST Narrative [facility] - 05/14/2025 6:37 PM EST Less than 99th percentile of normal range [...] performed using a different testing methodology at [facility] than at other [facility]. Direct result comparisons should only be made within the same method. Authorizing ProviderResult TypeResult StatusBrandkacie FRANK-BANDAR BLOOD ORDERABLESFinal ResultPerforming OrganizationAddressCity/State/ZIP CodePhone Number [facility] [address] [place] [address] * ECG 12 lead (05/14/2025 5:42 PM EST) Only the most recent of3 resultswithin the time period is included. ComponentValueRef RangeTest MethodAnalysis TimePerformed AtPathologist Signature Ventricular Bcxo90IROWLETQxxkgg Cxvs63YFWWHZKIO Kqbuhnyv835uvPSNEQLQ Ibrrtyfv04 msMUSEQT Opyegyjm629icRIDPIZD Calculation(Bazett)503msMUSEP Kzwt17yzbxrcmFAIQX Mason-3degreesMUSET Cpyl74rtdfhbbNABJMJD Wwtud89brggjDYGPF Cqnyu267yvHFRYB Onset 157msMUSEP Dnbteg612foFJXMZ Zmziix630oyJETSDCU Tqdfpscurz204kcWEJJTdpedmzj (Source)Anatomical Location / LateralityCollection Method / VolumeCollection TimeReceived Time05/14/2025 5:41 PM EST05/19/2025 11:38 AM EST Narrative MUSE - 05/19/2025 11:38 AM EST Sinus rhythm with Premature atrial complexes Low voltage QRS Prolonged QT Abnormal ECG When compared with ECG of 26-APR-2025 00:27, Premature atrial complexes are now Present See ED provider note for full interpretation and clinical correlation Confirmed by Carmelita Dhillon ([id number]) on 05/19/2025 11:38:15 AM Procedure Note Carmelita Dhillon, CATTLE FARMER-GROUNDS/MAINTENANCE SPECIALIST - 05/19/2025 Sinus rhythm with Premature atrial complexes Low voltage QRS Prolonged QT Abnormal ECG When compared with ECG of 26-APR-2025 00:27, Premature atrial complexes are now Present See ED provider note for full interpretation and clinical correlation Confirmed by Carmelita Dhillon ([id number]) on 05/19/2025 11:38:15 AM Authorizing ProviderResult TypeResult StatusChamp Hammond PA-CECG ORDERABLES Final ResultPerforming OrganizationAddressCity/State/ZIP CodePhone Number MUSE * Blood Culture (04/26/2025 12:14 AM EDT) Only the most recent of2 resultswithin the time period is included. ComponentValueRef RangeTest MethodAnalysis TimePerformed AtPathologist Signature Blood CultureNo growth at 4 days - FINAL REPORT AUTOMATED MICROBIAL DETECTION SYSTEM (VIRTUO) 04/30/2025 9:01 AM [facility] LABSpecimen (Source)Anatomical Location / Laterality Collection Method / VolumeCollection TimeReceived TimeBlood cultureVenous blood specimen / UnknownBlood Culture / Ofwjlec4904/26/2025 12:14 AM EDT1 12:19 AM EDT Narrative Authorizing ProviderResult TypeResult StatusWilmer GOULD MICROBIOLOGY - GENERAL ORDERABLESFinal ResultPerforming OrganizationAddressCity/State/ZIP Code Phone Number [facility] [address] [place] [phone] * (ABNORMAL) NON- HIE BMP (03/26/2025 3:18 AM EDT)ComponentValueRef RangeTest MethodAnalysis TimePerformed AtPathologist SignatureBANNER BOSWELL MEDICAL CENTER-LOS [facility] CENTERE GLUCOSE NIS042 (H)55 - 199 mg/dLMER[facility] HIE BUN95 - 21 mg/dLDAYTON VA MEDICAL CENTERE CREATININE0.60.5 - 1.3 mg/dLST. ANTHONY'S [facility]OS[facility] BUN/CREAT ODHVK9252 - 20 No UnitsST. ANTHONY'S HOSPITAL CALCIUM LVL9.18.9 - 11.1 mg/dLCH[facility] NON-[facility] HIE SODIUM VEO753254 - 145 mmol/LFSALEM CITY [facility]- HIE POTASSIUM LVL3.1(L)3.5 - 5.3 mmol/LFSALEM CITY HOSPITAL- HIE ULIFZYQE334(L)101 - 111 mmol/LFSYCAMORE MEDICAL CENTERNON- HIE EM39311 - 31 mmol/LFHOLZER HOSPITAL HIE YYUJ490 - 16 mEq/LFTOGUS VA MEDICAL CENTERpecimen (Source)Anatomical Location / LateralityCollection Method / VolumeCollection TimeReceived TimeALLIANCEHEALTH [facility]ADILL [facility]- Blood03/26/2025 3:18 AM EDT Narrative Authorizing ProviderResult TypeResult StatusWilmer JUAREZAB BLOOD ORDERABLES Final ResultPerforming OrganizationAddressCity/State/Z[place] [address], * (ABNORMAL) NON-[facility] HIE Lipase Level (03/26/2025 3:18 AM EDT)ComponentValueRef RangeTest MethodAnalysis TimePerformed AtPathologist SignatureBANNER BOSWELL MEDICAL CENTER- HIE LIPASE LVL6(L)13 - 58 unit/LFTOGUS VA MEDICAL CENTERpecimen (Source) Anatomical Location / LateralityCollection Method / VolumeCollection Time Received TimeALL[facility]HE[facility]- Blood03/26/2025 3:18 AM EDT Narrative Authorizing ProviderResult TypeResult StatusWilmer JUAREZAB BLOOD ORDERABLES Final ResultPerforming OrganizationAddressCity/State/ZIP [place] [address], [place] * NON-[facility] HIE Hep Func Panel (03/26/2025 3:18 AM EDT)ComponentValueRef RangeTest MethodAnalysis TimePerformed AtPathologist SignatureNON- HIE QGW657 - 46 Int._Unit/LFSYCAMORE MEDICAL CENTERNON- HIE HFM507 - 43 Int._Unit/LFSALEM CITY HOSPITAL- HIE ALBUMIN LVL4.03.3 - 5.0 gm/dLMER[facility]ALTH [facility] HIE GLOBULIN3.31.4 - 4.0 gm/dLCH[facility] HIE A/G RATIO1.21.1 - 2.2[facility] HIE ALK PHOS 7821 - 98 Int._Unit/LFHOLZER HOSPITAL HIE BILI DIRECT0.10.0 - 0.4 mg/dLMER[facility]ALTH [facility] HIE BILI INDIRECT0.50.1 - 0.9 mg/dLMERCY HEALTH [facility]ST [facility] HIE BILI TOTAL0.60.0 - 1.1 mg/dLMERCY [facility]ALTH [facility] HIE TOTAL PROTEIN7.36.0 - 7.8 gm/dLMARTIN MEMORIAL HOSPITALpecimen (Source)Anatomical Location / LateralityCollection Method / VolumeCollection TimeReceived TimeALLIANCEHEALTH [facility]AD[facility]- Blood03/26/2025 3:18 AM EDT Narrative Authorizing ProviderResult TypeResult StatusWilmer PATRICIO BLOOD ORDERABLES Final ResultPerforming OrganizationAddressCity/State/ZIP CodePhone Number [facility] [address] [place] [address], * TSH with reflex to Free T4 if abnormal (11/09/2019 5:54 AM EDT)ComponentValue Ref RangeTest MethodAnalysis TimePerformed AtPathologist SignatureTSH2.660.44 - 3.98 [facility] LABComment: ?? Note new pediatric reference range as of 09/01/2019. TSH testing is performed using different testing methodology at [facility] than at other [facility]. Direct result comparisons should only be made within the same method. Specimen (Source)Anatomical Location / LateralityCollection Method / Volume Collection TimeReceived Time11/09/2019 5:54 AM EDT11/09/2019 6:30 AM EDT Narrative Authorizing ProviderResult TypeResult StatusJeremy GOULD BLOOD ORDERABLES Final ResultPerforming OrganizationAddressCity/State/ZIP CodePhone Number [facility] from Last 3 Months or Most Recently Relevant to Health Maintenance Additional Health Concerns Active ProblemsNoted DateDiagnosed DateMyChart Post Discharge Milk Pickup Driver Problem Wphvqtou08/28/2025 Insurance * Guarantor: Brandt Giselivanna Corrales TypeRelation to PatientDate of BirthPhone Billing AddressPersonal/ZkaqarPqdd1975 [facility] [address] [place] [address] Advance Directives For more information, please contact: [phone] (Available ) * Full Code (Latest Code Status on File) Date ActivatedDate FealyfoqgnrHchyqrtj38/23/2025 9:42 PMQuestionAnswerComments Plan of Care:* Code Status Discussion Completed Decision Maker:* Patient Care Teams Team MemberRelationshipSpecialtyStart DateEnd Date Skye Jones APRN-JOLYNN [address], [address] [place], [place] [phone] PCP - General11/28/21
--- OUTSIDE RECORDS SUMMARY | 2025-06-22 17:37 | XMS_ITS | Encounter Summary ---
Author Organization [facility] Address [address] [place] [address] Phone Care Team Providers Care Airplane Inspector Name Role Phone Skye Jones BAG WORKER-SUPPLY COORDINATOR Primary Care Pr ovider Encounter Details DateTypeDepartmentCare Team (Latest Contact Info)Fnsspohkiji63/19/2025Travel Social History Tobacco UseTypesPacks/DayYears UsedDateSmoking Tobacco: NeverPassive Smoke Exposure: NeverSmokeless Tobacco: NeverAlcohol UseStandard Drinks/WeekComments Defer0 (1 standard drink = 0.6 oz pure alcohol)PHQ-2AnswerDate RecordedPatient Health Questionnaire-2 Enbdo11007/21/2024Humiliation, Afraid, Rape, and Kick questionnaireAnswerDate RecordedWithin the [...] were you homeless or living in a fpc (including now)?No05/21/2025HC UtilitiesAnswerDate RecordedIn the past 12 months has the [employer], gas, oil, or water Motility Count threatened to shut off services in your home?No05/21/2025CommentsNoSex and Gender InformationValueDate RecordedSex Assigned at BirthNot on fileLegal SexFemale 05/24/2022 6:27 AM ESTGender IdentityNot on fileSexual OrientationNot on file documented as of this encounter Functional Status * Communicable Disease ScreeningQuestionAnswerDate of AssessmentAuthorDo you have any of the following new or worsening symptoms?Egjasrza42/19/2025 5:37 PM Trudy Moss RN documented as of this encounter Plan of Treatment Not on file documented as of this encounter Goals GoalPatient Goal TypeAssociated ProblemsRecent ProgressPatient-Stated?Author Chhayahart Post Discharge Eeler Goal Template Care PlanMyChart Post Discharge Eeler Problem TemplateNoMychart, Genericdocumented as of this encounter Visit Diagnoses Not on filedocumented in this encounter Additional Health Concerns Active ProblemsNoted DateDiagnosed DateMyChart Post Discharge Eeler Problem Tdkxzqgk25/28/2025documented as of this encounter Care Teams Team MemberRelationshipSpecialtyStart DateEnd Date Skye Jones, BAG WORKER-SUPPLY COORDINATOR [address] [facility] [address] [place] [phone] PCP - 11/28/21documented as of this encounter
--- OUTSIDE RECORDS SUMMARY | 2025-06-22 17:37 | XMS_ITS | Clinical Summary ---
Author Organization [employer] s tem Address [id number] [address] [place] [address] Care Team Providers Care Melter Loader Name Role Phone Skye Jones Primary Care Provider [phone] Allergies Active AllergyReactionsCriticalityNoted PvfoHklncpxlQtkrfvekfssysShvud83/01/2022 Banyqkpjnt52/16/1495RdtsdaamYpfhklo58/16/8724Avfnuqaj15/16/2022Nalbuphine 12/12/20219890Qfbfwichdkq65/16/6967Kmdimvghq36/16/2022 Medications MedicationSigDispense QuantityRefillsLast FilledStart DateEnd DateStatus insulin lispro (HumaLOG) 100 unit/mL injection Inject 0.35 mL (35 Units total) under the skin in the morning and 0.35 mL (35 Units total) at noon and 0.35 mL (35 Units total) in the evening. Inject before meals.Active gabapentin (NEURONTIN) 600 mg tablet Take 1 tablet (600 mg total) by mouth 3 (three) times a day.Active tiZANidine (ZANAFLEX) 4 mg tablet Take 1 tablet (4 mg total) by mouth every 8 (eight) hours as needed for muscle spasms.Active traZODone (DESYREL) 100 mg tablet Take 2 tablets (200 mg total) by mouth nightly.Active rosuvastatin (CRESTOR) 20 mg tablet Take 1 tablet (20 mg total) by mouth in the morning.Active ARIPiprazole (ABILIFY) 10 mg tablet Take 1 tablet (10 mg total) by mouth in the morning.Active OLANZapine (ZyPREXA) 5 mg tablet Take 1 tablet (5 mg total) by mouth every 6 (six) hours as needed.Active venlafaxine XR (EFFEXOR-XR) 150 mg 24 hr capsule Take 1 capsule (150 mg total) by mouth in the morning.Active loratadine (CLARITIN REDITABS) 10 mg disintegrating tablet Dissolve 1 tablet (10 mg total) on tongue in the morning.Active pantoprazole (PROTONIX) 40 mg EC tablet Take 1 tablet (40 mg total) by mouth in the morning.Active celecoxib (CeleBREX) 200 mg capsule Take 1 capsule (200 mg total) by mouth in the morning.Active metoprolol tartrate (LOPRESSOR) 50 mg tablet Take 1 tablet (50 mg total) by mouth in the morning and 1 tablet (50 mg total) before bedtime.Active insulin glargine (LANTUS, BASAGLAR) 100 unit/mL (3 mL) insulin pen Indications:type 2 diabetes mellitusInject 32 Units under the skin in the morning. Indications: type 2 diabetes mellitus.Active acetaminophen (TYLENOL EXTRA STRENGTH) 500 mg tablet Take 2 tablets (1,000 mg total) by mouth every 6 (six) hours as needed for pain. 30 tablet 03/08/2023ctive DULoxetine (CYMBALTA) 30 mg capsule Take 1 capsule (30 mg total) by mouth in the morning. Two tablets in am and 1 tablet in the evening.Active promethazine (PHENERGAN) 25 mg tablet Take 1 tablet (25 mg total) by mouth every 6 (six) hours as needed for nausea or vomiting. 15 tablet 06/10/2023ctive Active Problems ProblemNoted DateDiagnosed DateRecurrent urinary tract hjicccxcl25/24/2025 Overview (08/22/2024): ==== 08/22/2024 ==== recurrent UTIs. Burning urgency frequency. Started roughly within last decade or so. Not requiring hospitalization. Plan: [facility] bladder solution. Standing order urine culture. upper tracts demonstratedon the CT scan were negative by report Hsvglfrlkqdkgsj03/24/2025 Overview (08/22/2024): April [address] CT scan [facility]. Small stone right upper pole on left [...] some point to monitor stone. Mineral metabolism jthyflra96/24/2025 Overview (08/22/2024): ==== 08/22/2024 ==== per patient report did do a 24 urine collection through outside urologist last fall any no specific medications were given. Recent serum calcium evaluated 9.4 AMS (altered mental status)03/06/2023 Social History Tobacco UseTypesPacks/DayYears UsedDateSmoking Tobacco: NeverSmokeless Tobacco: Never Tobacco Cessation:Counseling Given: Not Answered Alcohol UseStandard Drinks/WeekCommentsNot Currently0 (1 standard drink = 0.6 oz pure alcohol)Hunger ScreeningAnswerDate RecordedWithin the past 12 months we worried whether our food would run out before we got money to buy more.Never True08/22/2024Within the past 12 months the food we bought just didn't last and we didn't have money to get more.Never True08/22/2024CommentsNoSex and Gender InformationValueDate RecordedSex Assigned at BirthNot on fileLegal Sex Dvteuz3012/12/2021 10:27 PM EDTGender IdentityNot on fileSexual OrientationNot on file Last Filed Vital Signs Vital SignReadingTime TakenCommentsBlood Hjjymnsw400/8708/22/2024 2:05 PM EST Nxvfm29166/24/2025 2:05 PM UXDHlzlgnrggcu27.6 ??C (97.8 ??F)07/23/2023 4:18 PM ESTRespiratory Ucoo160407/23/2023 4:18 PM ESTOxygen Hehaeaavic73%07/23/2023 4:18 PM ESTInhaled Oxygen Concentration--Pmzbsz436.5 kg (270 lb)08/22/2024 2:05 PM RGXTptbfg095.2 cm (5' 7 )08/22/2024 2:05 PM ESTBody Mass Index42.29008/22/2024 2:05 PM EST Plan of Treatment Health MaintenanceDue DateLast DoneCommentsDepression Gfwgtrtkd10/28/1987Adult BMI Follow Up Plan1993Influenza Rnjacvv94, 04/23/2018 Zoster (Shingles) Vaccine (1 of 2)2025dult BMI Zphmbkrno60/24/2026 08/22/2024Tobacco Atzaesupu64DTaP,Tdap and Td Vaccines (2 - Td or Tdap)/3Pap HkzctHucbugkcnwkz82/28/2022 Medical Devices Not on file Insurance Advance Directives * Full Code (Latest Code Status on File) Date ActivatedDate InactivatedComments03/06/2023 9:36 PM03/08/2023 5:59 PM Care Teams Team MemberRelationshipSpecialtyStart DateEnd Date Skye Jones [address], [address] [place], [place] [id number] PCP - Generalmily Medicine12/12/21
--- OUTSIDE RECORDS SUMMARY | 2025-06-22 17:37 | XMS_ITS | Encounter Summary ---
Author Organization [facility] Address [address] [place] [address] Phone Care Team Providers Care Needle Punch Operator Name Role Phone Skye Jones MANAGER ROOM-CORE SHAPER TOP Primary Care Pr ovider Encounter Details DateTypeDepartmentCare Team (Latest Contact Info)Lewxqnkdxog97/22/2025Results Follow-Up [facility] [address] [place] [id number] Linda Rodriguez, PharmD [address] [place] [address] Urine Culture Social History Tobacco UseTypesPacks/DayYears UsedDateSmoking Tobacco: NeverPassive Smoke Exposure: NeverSmokeless Tobacco: NeverAlcohol UseStandard Drinks/WeekComments Defer0 (1 standard drink = 0.6 oz pure alcohol)PHQ-2AnswerDate RecordedPatient Health Questionnaire-2 Uyemy16807/21/2024Humiliation, Afraid, Rape, and Kick questionnaireAnswerDate RecordedWithin the [...] were you homeless or living in a chcf (including now)?No05/21/2025HC UtilitiesAnswerDate RecordedIn the past 12 months has the [employer], oil, or water [employer] threatened to shut off services in your home?No05/21/2025CommentsNoSex and Gender InformationValueDate RecordedSex Assigned at BirthNot on fileLegal SexFemale 05/24/2022 6:27 AM ESTGender IdentityNot on fileSexual OrientationNot on file documented as of this encounter Plan of Treatment Not on file documented as of this encounter Goals GoalPatient Goal TypeAssociated ProblemsRecent ProgressPatient-Stated?Author Angie Post Discharge Inventory Transcriber Goal Template Care PlanMyChart Post Discharge Inventory Transcriber Problem TemplateNoMychart, Genericdocumented as of this encounter Visit Diagnoses Not on filedocumented in this encounter Additional Health Concerns Active ProblemsNoted DateDiagnosed DateMyChart Post Discharge Inventory Transcriber Problem Zladbsyp71/28/2025documented as of this encounter Care Teams Team MemberRelationshipSpecialtyStart DateEnd Date Skye Jones, PEE-CORE SHAPER TOP [address] [place] [address] [address] [place] [address] PCP - 11/28/21documented as of this encounter
--- OUTSIDE RECORDS SUMMARY | 2025-06-22 17:37 | XMS_ITS | Clinical Summary ---
Author Organization [facility] Address [address] [place] [address] Care Team Providers Care Medical Numerical Control Operator Name Role Phone Jaron Solis MD Primary Care Provider [phone] Allergies Active AllergyReactionsCriticalityNoted SfivTvwsqvytAqjzmgvIdcwhdiBth38/26/2011 Pt states gives me nosebleeds nosebleeds Pt states gives me nosebleeds nosebleeds nosebleeds Fdcajjlatoyb14/10/2025Charentais Melon (Egyptian Melon)Hives,Quoghmaf44/01/2024 CiprofloxacinHives,JfqoIodxxt55/11/2020 Other reaction(s): Hives/Urticaria FentanylHives,Itching,Rash,YcgbmdiLxgr08/25/2017 Other reaction(s): Hives, Hives/Urticaria KetorolacHives,YmagbidQlxjoz98/20/2013 Other reaction(s): Hives, Hives/Urticaria BfohgmcxbtWnqyqFbfgaj68/23/2013 Other reaction(s): Hives/Urticaria Meperidine HclHives,TcistpwXjiyof36/26/2011MorphineHives,Rash,UnknownMedium 12/19/2015 Patient tolerates hydromorphone Other reaction(s): Hives, Hives/Urticaria, Unknown Reaction NalbuphineHives,KwwiuprMeqmvu09/25/2012 Other reaction(s): Hives, Hives/Urticaria QkqvoysrnnvIjuda14/12/2024PenicillinsHives,Swelling,BsaejfiQatd95/26/2011 Total body swelling- only injection, able to take oral amox Tolerates cefazolin Other reaction(s): Hives, Hives/Urticaria Medications MedicationSigDispense QuantityRefillsLast FilledStart DateEnd DateStatus insulin aspart (NovoLOG, Fiasp) 100 UNIT/ML patient supplied pump Inject 20 Units under the skin in the morning and 20 Units in the evening and 20 Units before bedtime.Active gabapentin (Neurontin) 600 MG tablet Take 600 mg by mouth in the morning and 600 mg in the evening and 600 mg before bedtime.Active loratadine (Claritin) 10 MG tablet 10 mg DailyActive metoprolol tartrate (Lopressor) 25 MG tablet 25 mgActive hydrOXYzine pamoate (Vistaril) 50 MG capsule Take 50 mg by mouth every 6 (six) hours if ltilgm7812/10/2022ctive DULoxetine (Cymbalta) [address] capsule Take 60 mg by mouth Daily12/10/2022ctive OLANZapine (ZyPREXA) 5 MG tablet Take 5 mg by mouth at bedtimeActive promethazine (Phenergan) 25 MG tablet 08/21/2023ctive ARIPiprazole (Abilify) 20 MG tablet 10/19/2023ctive Lantus SoloStar 100 UNIT/ML pen Active insulin lispro (HumaLOG) 100 UNIT/ML injection 10/05/2023ctive Drug [place] Unifine Pentips Plus 32G X 4 MM misc 10/19/2023ctive meclizine (Antivert) 25 MG tablet Take 25 mg by mouth every 8 (eight) hours if qykhux5108/21/2023ctive pantoprazole (ProtoNix) 40 MG EC tablet Take 40 mg by mouth in the morning.Active Jardiance 25 MG Take 25 mg by mouth Daily12/16/2023ctive albuterol HFA 90 mcg/act inhaler Inhale 2 puffs every 6 (six) hours if neededActive Continuous Glucose Hand Edger (Synchronicity.coStyle Myron 3 [place]) device 06/30/2024tive fluticasone (Flonase) 50 MCG/ACT nasal spray 07/30/2024tive methocarbamol (Robaxin) 500 MG tablet Take 500 mg by mouth in the morning and 500 mg at noon and 500 mg in the evening.5Active cholecalciferol (Vitamin D-3) 25 MCG (1000 UT) tablet Take 25 mcg by mouth 1 (one) time per week5Active colesevelam (Welchol) 625 MG tablet Take 625 mg by mouth in the morning and 625 mg in the evening. Take with meals. 5Active ondansetron ODT (Zofran-ODT) 4 MG disintegrating tablet DISSOLVE ONE TABLET on top OF tongue EVERY 6 TO 8 HOURS NEEDED for FOR NAUSEA 5Active acetaminophen (Tylenol) 325 MG tablet 5Active rosuvastatin (Crestor) 40 MG tablet Take 40 mg by mouth Daily5Active Mounjaro 10 MG/0.5ML solution auto-injector INJECT 10mg SUBCUTANEOUSLY (UNDER THE SKIN) EVERY WEEK5Active tiZANidine (Zanaflex) 4 MG tablet Take 4 mg by mouth every 8 (eight) hours if zqqjop8205/02/2025tive traZODone (Desyrel) 300 MG tablet Take 300 mg by mouth as needed at bedtime for sleep5Active Active Problems ProblemNoted DateDiagnosed DateLeft knee pain06/11/2015 Resolved Problems ProblemNoted DateDiagnosed DateResolved KyffTcvsglthovkg34 Encounters DateTypeDepartmentCare VgbePodxbghxqym17/20/2025 8:45 AM ESTOffice Visit [facility] [address] [place] [address] Omi Watkins DO S/P arthroscopy of left shoulder (Primary Dx)05/18/2025amboo flowsheet [facility] [address] [place] [address] Omi Watkins DO 05/18/2025Travelfrom Last 3 Months Family History Medical HistoryRelationNameCommentsCancerFatherTimHeart diseaseFatherTim HypertensionFatherTimHypertensionMotherRelationNameStatusCommentsDaughterAlive FatherTimDeceasedMaternal GrandfatherDeceasedMaternal GrandmotherDeceasedMother AlivePaternal GrandfatherDeceasedPaternal GrandmotherDeceasedSiblingAliveSon Alive Social History Tobacco UseTypesPacks/DayYears UsedDateSmoking Tobacco: NeverSmokeless Tobacco: Never Tobacco Cessation:Counseling Given: Not Answered Alcohol UseStandard Drinks/WeekCommentsNever0 (1 standard drink = 0.6 oz pure alcohol)caffeine intake: coffee, teaCommentsUnknownSex and Gender InformationValueDate RecordedSex Assigned at BirthNot on fileLegal SexFemale 09/10/2022 7:21 PM EDTGender IdentityNot on fileSexual OrientationNot on file Last Filed Vital Signs Vital SignReadingTime TakenCommentsBlood Pressure--Pulse--Jqimeutlesd34.3 ??C (97.4 ??F)07/14/2024 1:24 PM ESTRespiratory Rate--Oxygen Saturation--Inhaled Oxygen Concentration--Lnupwr113 kg (277 lb)05/18/2025 8:27 AM LZLZlczxp507.2 cm (5' 7 )05/18/2025 8:27 AM ESTBody Mass Index43.38107/18/2024 8:27 AM EST Plan of Treatment Not on file Insurance Care Teams Team MemberRelationshipSpecialtyStart DateEnd Jaron Solis MD [address] [place], [place] [id number] PCP - GeneralFamily Medicine01/15/23
--- OUTSIDE RECORDS SUMMARY | 2025-06-22 17:37 | XMS_ITS | Encounter Summary ---
Author Organization [facility] Address [address] [place] [address] Phone Care Team Providers Care Linen Keeper Name Role Phone Skye Jones CAMPAIGN ADVISOR-SPECIAL EVENTS DRIVER Primary Care Pr ovider Encounter Details DateTypeDepartmentCare Team (Latest Contact Info)Jtdtbjwwuxp57/12/2025Travel Social History Tobacco UseTypesPacks/DayYears UsedDateSmoking Tobacco: NeverPassive Smoke Exposure: NeverSmokeless Tobacco: NeverAlcohol UseStandard Drinks/WeekComments Defer0 (1 standard drink = 0.6 oz pure alcohol)PHQ-2AnswerDate RecordedPatient Health Questionnaire-2 Qslel78007/21/2024Humiliation, Afraid, Rape, and Kick questionnaireAnswerDate RecordedWithin the [...] were you homeless or living in a prison (including now)?No05/21/2025HC UtilitiesAnswerDate RecordedIn the past 12 months has the [employer], gas, oil, or water [employer] threatened to shut off services in your home?No05/21/2025CommentsNoSex and Gender InformationValueDate RecordedSex Assigned at BirthNot on fileLegal SexFemale 05/24/2022 6:27 AM ESTGender IdentityNot on fileSexual OrientationNot on file documented as of this encounter Functional Status * Communicable Disease ScreeningQuestionAnswerDate of AssessmentAuthorDo you have any of the following new or worsening symptoms?None of these06/09/2025 5:29 PM ESTArmitage, Yefri, RN documented as of this encounter Plan of Treatment Not on file documented as of this encounter Goals GoalPatient Goal TypeAssociated ProblemsRecent ProgressPatient-Stated?Author MyChart Post Discharge Toy Painter Goal Template Care PlanMyChart Post Discharge Toy Painter Problem TemplateNoMychart, Genericdocumented as of this encounter Visit Diagnoses Not on filedocumented in this encounter Additional Health Concerns Active ProblemsNoted DateDiagnosed DateMyChart Post Discharge Toy Painter Problem Lqahylfs47/28/2025documented as of this encounter Care Teams Team MemberRelationshipSpecialtyStart DateEnd Date Skye Jones, PEE-SPECIAL EVENTS DRIVER [address] [place] [id number] PCP - 11/28/21documented as of this encounter
[2025-06-22 17:46] LABS: Cast Seen? NONE SEEN #/LPF (NONE SEEN); Crystals Seen? None Seen #/HPF (None Seen); Urine Culture Indicated YES-FRMC
[2025-06-22 17:48] LABS: Alanine Aminotransferase 31 U/L (14-59); Albumin Globulin Ratio 0.9; Albumin Level 4.1 g/dL (3.4-5.0); Alkaline Phosphatase 92 U/L (46-116); Anion Gap 9.8; Blood Urea Nitrogen 11.0 mg/dL (7.0-18.0); Calcium 9.9 mg/dL (8.5-10.1); Carbon Dioxide 32.1 mmol/L (21.0-32.0); Chloride 101 mmol/L (98-107); Estimated GFR (African America >60 (>=60 mL/min/1.73m^2); Estimated GFR (Non-African Ame >60 (>=60 mL/min/1.73m^2); Globulin 4.5 g/dL; Glucose 247 mg/dL (74-106); Sodium 138 mmol/L (136-145); Total Protein 8.6 g/dL (6.4-8.2)
--- NOTE | 2025-06-22 18:35 | ED.GENADUL1 ---
HPI HPI - General Adult General Chief complaint: Urogenital-Female Stated complaint: Flank Pain Time Seen by Provider: 06/22/25 17:01 Source: patient Mode of arrival: walk-in Limitations: no limitations History of Present Illness HPI narrative: Patient is a 50-year-old female presenting to the emergency department for evaluation of right flank pain. Patient states her symptoms started early this morning. She states it is located in the right upper part of her back and is associate with nausea and vomiting. She denies dysuria or hematuria. She denies chest pain or shortness of breath. States he has a history of kidney stones and believes this may be secondary to that. Related Data Home Medications ?Medication ?Instructions ?Recorded ?Confirmed metoprolol tartrate 25 mg tablet 50 mg PO Q12H 12/30/22 06/22/25 tizanidine 4 mg tablet 4 mg PO Q8H PRN spasms 12/30/22 06/22/25 olanzapine 5 mg tablet 5 mg PO BID PRN agitation 01/17/23 06/22/25 duloxetine 60 mg capsule,delayed 120 mg PO DAILY 07/19/23 06/22/25 release (Cymbalta) insulin glargine 100 unit/mL (3 40 unit subcut QPM 07/21/23 06/22/25 mL) subcutaneous pen (Lantus Solostar U-100 Insulin) meclizine 25 mg tablet 25 mg PO TID PRN dizziness 07/21/23 06/22/25 naloxone 4 mg/actuation nasal spray 1 spray intranasal Q3M PRN opioid 03/24/24 06/22/25 overdose cholecalciferol (vitamin D3) 25 25 mcg PO QWEEK 08/07/24 06/22/25 mcg (1,000 unit) tablet empagliflozin 25 mg tablet 25 mg PO DAILY 08/07/24 06/22/25 (Jardiance) rosuvastatin 40 mg tablet 40 mg PO DAILY 08/07/24 06/22/25 blood-glucose sensor (FreeStyle 11/14/24 06/22/25 Myron 3 Sensor device) pantoprazole 40 mg tablet,delayed 40 mg PO DAILY 11/14/24 06/22/25 release trazodone 300 mg tablet 300 mg PO BEDTIME PRN sleep 11/14/24 06/22/25 aripiprazole 20 mg tablet 20 mg PO DAILY 03/04/25 06/22/25 Allergies Allergy/AdvReac Type Severity Reaction Status Date / Time melon Allergy Severe Anaphylaxis Verified 04/04/25 21:24 fentanyl Allergy Unknown Unknown Verified 04/04/25 21:24 ketorolac (From Toradol) Allergy Unknown Unknown Verified 04/04/25 21:24 meperidine (From Demerol) Allergy Unknown Unknown Verified 04/04/25 21:24 morphine Allergy Unknown Unknown Verified 04/04/25 21:24 nalbuphine (From Nubain) Allergy Unknown Unknown Verified 04/04/25 21:24 Penicillins Allergy Unknown Unknown Verified 04/04/25 21:24 aspirin AdvReac Unknown NOSE BLEEDS Verified 04/04/25 21:24 Opioid HPI Opioid Management Most Recent Opioid Data: Last Pain Scale 8 Today, 17:06 Last ORT Total Score 3 03/28/24, 21:04 Last ORT Risk Category Low Risk 03/28/24, 21:04 Ur Phencyclidine Scrn, (NEGATIVE) Negative 07/21/23, 18:35 Review of Systems ROS Status of ROS 10 or more systems reviewed and unremarkable except as noted in history and below [facility] Medical History (Updated 06/22/25 @ 17:40 by Phillip Peres DO) Syncope ?R55 - Syncope and collapse (ICD-10) Headache ?R51.9 - Headache, unspecified (ICD-10) Obesity ?E66.9 - Obesity, unspecified (ICD-10) HLD (hyperlipidemia) ?E78.5 - Hyperlipidemia, unspecified (ICD-10) Migraine headache ?G43.909 - Migraine, unspecified, not intractable, without status migrainosus (ICD-10) Depression with anxiety ?F41.8 - Other specified anxiety disorders (ICD-10) UTI (urinary tract infection) ?N39.0 - Urinary tract infection, site not specified (ICD-10) Kidney calculi ?N20.0 - Calculus of kidney (ICD-10) GERD (gastroesophageal reflux disease) ?K21.9 - Gastro-esophageal reflux disease without esophagitis (ICD-10) Diabetes ?E11.9 - Type 2 diabetes mellitus without complications (ICD-10) Surgical History (Updated 03/28/24 @ 21:25 by Minerva Merchant) History of cholecystectomy ?Z90.49 - Acquired absence of other specified parts of digestive tract (ICD-10) H/O oophorectomy H/O: hysterectomy ?Z90.710 - Acquired absence of both cervix and uterus (ICD-10) Family History (Updated 03/28/24 @ 21:26 by Minerva Merchant) Mother Family history of hypertension Social History (Updated 03/28/24 @ 21:27 by Minerva Merchant) Within the past year, how often did you have a drink containing alcohol: never Score interpretation: A score less than 3 is consistent with normal alcohol consumption. 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 Highest level of school completed/degree received: some college, no degree Are you now , , , , never or living with a partner: In a typical week, how many times do you talk on the telephone with family, friends, or neighbors: 3 or more times per week How often do you get together with friends or relatives: 3 or more times per week How often do you attend caodaism or muslim services: 4 or more times per year Little interest or pleasure in doing things: not at all Feeling down, depressed, or hopeless: not at all Feel stressed/tense/nervous/anxious/difficulty sleeping: only a little Do you think of yourself as: straight/heterosexual Gender Identity: female Exam Narrative Exam Narrative: CONSTITUTIONAL: Well-appearing, answering questions and following commands appropriately SKIN: Was warm and dry. EYES: Sclerae white. EARS, NOSE, THROAT: Moist oral mucosa. RESPIRATORY: Clear to auscultation bilaterally, no wheezes, crackles, or stridor, no use of accessory muscles CARDIOVASCULAR: Normal rate and regular rhythm. There is no S3, S4, murmur, rub. GASTROINTESTINAL: Abdomen is soft, nontender, nondistended. No CVA tenderness bilaterally. No rebound tenderness or guarding. MUSCULOSKELETAL: No peripheral edema. NEUROLOGIC: Patient is awake and alert. Facies were symmetrical. Constitutional Vital Signs, click to edit/add: Last Vital Signs Temp 99.2 F 06/22/25 17:06 Pulse 133 H 06/22/25 17:06 Resp 18 06/22/25 17:06 BP 130/95 H 06/22/25 17:06 Pulse Ox 99 06/22/25 17:06 O2 Del Method Room Air 06/22/25 17:06 Course Vital Signs Vital signs: Vital Signs Temperature 99.2 F 06/22/25 17:06 Pulse Rate 133 H 06/22/25 17:06 Respiratory Rate 18 06/22/25 17:06 Blood Pressure 130/95 H 06/22/25 17:06 Pulse Oximetry 99 06/22/25 17:06 Oxygen Delivery Method Room Air 06/22/25 17:06 Temperature 99.2 F 06/22/25 17:06 Pulse Rate 133 H 06/22/25 17:06 Respiratory Rate 18 06/22/25 17:06 Blood Pressure 130/95 H 06/22/25 17:06 Pulse Oximetry 99 06/22/25 17:06 Oxygen Delivery Method Room Air 06/22/25 17:06 Medical Decision Making MDM Narrative Medical decision making narrative: Patient is a 50-year-old female presenting to the emergency department a 1 day history of right flank pain. Vital signs are significant for tachycardia, otherwise were within normal limits. She is afebrile and hemodynamically stable. Examination as noted above. Differential diagnosis includes pyelonephritis, nephrolithiasis, UTI, or other electrolyte/metabolic derangements. IV was established and laboratory studies were obtained. CT abdomen/pelvis was ordered. She was treated symptomatically with oral ibuprofen, IV Zofran, and 1 L bolus normal saline. Laboratory studies were unremarkable. No significant electrolyte or metabolic derangement. No evidence of acute kidney injury. No anemia, leukocytosis, or thrombocytopenia. No transaminitis or hyperbilirubinemia. Urinalysis was positive for hematuria, negative for acute infection. Prior to the patient obtaining a CT, and before I could reevaluate her, I was informed by the nursing staff that she left the hospital AGAINST MEDICAL ADVICE. FINAL IMPRESSION: #Acute right flank pain DISPOSITION: Left the hospital AMA CONDITION: Undetermined Medical Records Medical records reviewed: Yes I reviewed the patient's medical records Lab Data Lab results reviewed: Yes I reviewed the patient's lab results Labs: Lab Results 06/22/25 06/22/25 Range/Units 17:13 17:18 WBC 6.9 (4.0-11.0) 10^3/uL RBC 4.85 (4.20-5.40) 10^6/uL Hgb 14.6 (12.0-16.0) g/dL Hct 42.9 (36.0-48.0) % MCV 88.5 (81.0-99.0) fL MCH 30.1 (26.7-34.0) pg MCHC 34.0 (29.9-35.2) g/dL RDW 12.9 (11.0-15.0) % Plt Count 207 (150-450) 10^3/uL MPV 9.8 (9.5-13.5) fL Neut % (Auto) 58.4 (43.0-75.0) % Lymph % (Auto) 31.0 (20.5-60.0) % Motley % (Auto) 8.0 (1.7-12.0) % Eos % (Auto) 1.9 (0.9-7.0) % Baso % (Auto) 0.6 (0.2-2.0) % Neut # (Auto) 4.0 (1.4-6.5) 10^3/uL Lymph # (Auto) 2.1 (1.2-3.8) 10^3/uL [place]ley # (Auto) 0.6 (0.3-0.8) 10^3/uL Eos # (Auto) 0.1 (0.0-0.7) 10^3/uL Baso # (Auto) 0.0 (0.0-0.1) 10^3/uL Abs Immat Gran (auto) 0.01 (0.00-0.03) 10^3/uL Imm/Tot Granulo (auto) 0.1 (0.0-0.5) % Sodium 138 (136-145) mmol/L Potassium (3.5-5.1) mmol/L Chloride 101 (98-107) mmol/L Carbon Dioxide 32.1 H (21.0-32.0) mmol/L Anion Gap 9.8 BUN 11.0 (7.0-18.0) mg/dL Creatinine 0.70 (0.55-1.02) mg/dL Est GFR ( Amer) >60 (>=60 mL/min/1.73m^2) Est GFR (Non-Af Amer) >60 (>=60 mL/min/1.73m^2) BUN/Creatinine Ratio 15.7 Glucose 247 H (74-106) mg/dL Calcium 9.9 (8.5-10.1) mg/dL Total Bilirubin 0.5 (0.2-1.0) mg/dL AST (15-37) U/L ALT 31 (14-59) U/L Alkaline Phosphatase 92 (46-116) U/L Total Protein 8.6 H (6.4-8.2) g/dL Albumin 4.1 (3.4-5.0) g/dL Globulin 4.5 g/dL Albumin/Globulin Ratio 0.9 Urine Color Dk yellow (YELLOW) Urine Clarity Sl cloudy (CLEAR) Urine pH 6.0 (5.0-9.0) Ur Specific [place] 1.020 (1.005-1.025) Urine Protein Trace (NEG/TRACE) mg/dL Urine Glucose (UA) >=1000 A (NEGATIVE) mg/dL Urine Ketones Trace A (NEGATIVE) mg/dL Urine Occult Blood Large A (NEGATIVE) Urine Nitrite Negative (NEGATIVE) Urine Bilirubin Negative (NEGATIVE) Urine Urobilinogen 1.0 (0.2-1.0) EU/dL Ur Leukocyte Esterase Small A (NEGATIVE) Urine RBC 50-75 A (0-2) #/HPF Urine WBC 5-10 A (NONE SEEN) #/HPF Ur Squamous Epith Cells Few A (NONE/RARE) #/LPF Urine Crystals None seen (None Seen) #/HPF Urine Bacteria Small A (NONE SEEN) #/HPF Urine Casts None seen (NONE SEEN) #/LPF Urine Mucus Trace A (NONE SEEN) Ur Culture Indicated? Yes-[facility] [place] Discharge Plan Discharge Stand Alone Forms: Portal Instructions Chief Complaint: Urogenital-Female Clinical Impression: Acute flank pain Patient Disposition: Left Against Medical Advice Condition: Undetermined Mode of Transportation: Private Vehicle Prescriptions / Home Meds: No Action olanzapine 5 mg tablet 5 mg PO BID PRN (Reason: agitation) Rx Instructions: HS duloxetine [Cymbalta] 60 mg capsule,delayed release(DR/EC) 120 mg PO DAILY insulin glargine [Lantus Solostar U-100 Insulin] 100 unit/mL (3 mL) insulin pen 40 unit SUBCUT QPM meclizine 25 mg tablet 25 mg PO TID PRN (Reason: dizziness) naloxone 4 mg/actuation spray,non-aerosol 1 spray INTRANASAL Q3M PRN (Reason: opioid overdose) pantoprazole 40 mg tablet,delayed release (DR/EC) 40 mg PO DAILY trazodone 300 mg tablet 300 mg PO BEDTIME PRN (Reason: sleep) (DME) FreeStyle Myron 3 Sensor Device MISCELLANEOUS aripiprazole 20 mg tablet 20 mg PO DAILY metoprolol tartrate 25 mg tablet 50 mg PO Q12H tizanidine 4 mg tablet 4 mg PO Q8H PRN (Reason: spasms) cholecalciferol (vitamin D3) 25 mcg (1,000 unit) tablet 25 mcg PO QWEEK Jardiance 25 mg tablet 25 mg PO DAILY rosuvastatin 40 mg tablet 40 mg PO DAILY Print Language: Welsh Instructions: Flank Pain (ED) Referrals: JIE LEE CNP [Primary Care Provider] - 1 week Discharge Date/Time: 06/22/25 17:33
== END 2025-06-22 17:33 | disposition left against medical advice (07) ==
PROVIDERS: Emergency Provider Student in an Organized Health Care Education/Training Program; PCP Nurse Practitioner Family
DX: R10.31 Right lower quadrant pain (principal); Z53.29 Procedure and treatment not carried out because of patient's decision for other reasons; R11.2 Nausea with vomiting, unspecified; E11.9 Type 2 diabetes mellitus without complications
CPT/HCPCS: 36415; 80053; 81001; 85025; 87086; 99284